=== PATIENT | female | born 1985 | race Caucasian/White ===

== ENCOUNTER → 2017-06-18 08:02 | Outpatient (CLI) | payer MEDICAID, SELFPAY | PROVIDERS: Family Provider Family Medicine; PCP Family Medicine; Visit Provider Internal Medicine Endocrinology, Diabetes & Metabolism | DX: E66.9 Obesity, unspecified (principal); Z68.30 Body mass index [BMI] 30.0-30.9, adult | CPT/HCPCS: 36415; 82533 ==

== ENCOUNTER → 2017-07-02 13:37 | Outpatient (CLI) | payer MEDICAID, SELFPAY ==
--- NOTE | 2017-07-02 13:41 | US_ITS ---
STUDY: ULTRASOUND OF THE FEMALE PELVIS - COMPLETE REASON FOR EXAM: Female, 31 years old. Ovarian cyst LMP: 06/22/2017 TECHNIQUE: Transabdominal and Transvaginal TECHNICAL QUALITY: Adequate. COMPARISON: 11/28/2016 ultrasound report FINDINGS: The uterus is anteverted and is in a midline position. The uterus measures 10.5 x 5.3 x 3.6 cm. Normal uterine cervix. The endometrium measures 7 mm in thickness, and is hyperechoic. There is a small hyperechoic region within the endometrium measuring 4 x 3 mm. This could represent a tiny endometrial polyp. There is no demonstrated myometrial mass. I.U.D. - The patient does not have an I.U.D. The right ovary is visualized. The right ovary measures 4.6 x 4 x 3.1 cm. There is a 3.2 x 3.1 x 2.6 cm right ovarian cyst. There is no visualized right adnexal mass or complex lesion. There is normal arterial and normal venous vascularity. The left ovary has been removed. There is no fluid in the cul-de-sac. The bladder is minimally distended at the time of scanning. Polycystic ovary disease: No. US/Pelvic (Non ) IMPRESSION: Right ovarian cyst. Small hyperechoic endometrial lesion may represent an endometrial polyp. The left ovary has been removed. Electronically Signed: Zbigniew Crocker DO at 8:32 EDT Tel , Service support ,
[2017-07-02 14:16] LABS: Hemoglobin 12.8 g/dl (12.0-15.0); Mean Corp Hgb Conc 32.8 g/gl (32-36); Mean Corpuscular Volume 85.3 fL (81-99); Mean Platelet Vol. 9.1 fl (6.2-12.0); Platelet Count 324 K/mm3 (150-450); RBC Distribution Width CV 13.2 % (11.6-14.6); RBC Distribution Width SD 40.6 fl (35.1-43.9); Red Blood Count 4.57 M/mm3 (4.2-5.4); White Blood Count 8.7 K/mm3 (4.4-11.0)
[2017-07-02 14:23] LABS: Scan Indicated on CBC? Y/N NO
[2017-07-02 14:33] LABS: Erythrocyte Sedimentation Rate 13 mm/hr (0-20)
[2017-07-02 17:18] LABS: ALB/GLOB Ratio 0.8 RATIO (0.9-2.4); AST(SGOT) 18 U/L (15-37); Alanine Aminotransfer ALT/SGPT 21 U/L (13-56); Albumin, Serum 3.3 g/dL (3.2-5.0); Alkaline Phosphatase 92 U/L (45-117); Anion Gap 10 (5-15); BUN 9 mg/dL (7-18); BUN/Creat Ratio 11.6 RATIO (10-20); Calcium,Total 8.4 mg/dL (8.5-10.1); Chloride 107 mmol/L (98-107); Creatinine, Serum 0.77 mg/dL (0.55-1.02); EST Glomerular Filtration Rate 91 mL/min (>60); Est Glom Filt Rate - Afr Amer 110 mL/min (>60); Estradiol 82.6 pg/mL; Follicle Stimulating Hormone 6.6 mIU/mL; Globulin 3.9 g/dL (2.2-4.2); Glucose 107 mg/dL (74-106); Potassium 4.2 mmol/L (3.5-5.1); Prolactin 28.6 ng/mL; Protein, Total 7.2 g/dL (6.4-8.2); Sodium Level 142 mmol/L (136-145)
[2017-07-04 16:07] LABS: DHEA Sulfate 169.7 ug/dL (84.8-378.0)
[2017-07-05 08:32] LABS: Testosterone Free 2.2 pg/mL (0.0-4.2)
== END ==
PROVIDERS: Family Provider Family Medicine; PCP Family Medicine; Visit Provider Obstetrics & Gynecology
DX: E28.2 Polycystic ovarian syndrome (principal); R19.7 Diarrhea, unspecified; R63.5 Abnormal weight gain
CPT/HCPCS: 36415; 76856; 80053; 82627; 82670; 83001; 84146; 84402; 84403; 85027; 85652; 86140; 93976; 82626

== ENCOUNTER 2017-08-27 18:03 | Emergency (ER) | payer MEDICAID, SELFPAY ==
[2017-08-27 18:04] VITALS: BP 117/71; PULSE 82; RESP 16; TEMP 37.1; O2SAT 100; BMI 32.1
--- NOTE | 2017-08-27 18:25 | CT_ITS ---
STUDY: CT RIGHT HIP/PELVIS REASON FOR EXAM: Female, 22 years old. Lateral left hip pain and swelling radiating into leg. RADIATION DOSAGE (If Supplied By Facility): CTDIvol = ( ) mGy, DLP = ( ) mGycm TECHNIQUE: Transaxial imaging of the left hips was performed without oral contrast, and without intravenous administration of contrast material. COMPARISON: Pelvic ultrasound July 02, 2017. FINDINGS: Normal visualized left femur. Normal left acetabulum. Normal hip joint without articular joint space narrowing. Normal bilateral superior and inferior pubic rami. Normal pubic symphysis. Normal bilateral ischia. There are cortical enthesophytes at the lateral right iliac wing. There are early degenerative changes of the bilateral sacroiliac joints, and mild joint space narrowing and periarticular ilial sclerosis. There is no demonstrated fracture or osseous destructive lesion of the visualized osseous pelvis. Normal urinary bladder. Normal visualized small intestine. Normal visualized colon. There is no pelvic fluid. There are multiple low-density areas in the right ovary, consistent with follicular cysts. One of the largest is approximately 2.2 x 1.75 x 1.85 cm. The left ovary is not well seen. Normal visualized uterus. Normal visualized pelvic and femoral arteries. There are a few benign, partially fatty replaced lymph nodes in the left inguinal tissues. CT/Extremity Lower WITH Contrast IMPRESSION: 1. Normal visualized osseous pelvis and left hip/femur. 2. Dominant 2.2 cm follicular cyst in the right ovary. The uterus is unremarkable. The left ovary is not visualized. 3. No demonstrated left pelvic or groin mass. Electronically Signed: Chivo Santos MD at 19:21 EDT , Service support ,
[2017-08-27 18:40] LABS: Absolute Lymphocyte Count 3.83 X10^3/ul (0.83-4.51); Absolute Neutrophil Count 4.3 X10^3/uL (2.0-7.7); Basophil# 0.02 X10^3/uL; Basophil% 0.2 % (0-1); Eosinophil# 0.18 X10^3/uL; Hemoglobin 11.7 g/dl (12.0-15.0); Lymphocyte # 3.83 X10^3/ul (4.0); Lymphocyte % 42.9 % (19-41); Mean Corp Hgb Conc 32.5 g/gl (32-36); Mean Corpuscular Hgb 27.4 pg (27.0-32.0); Mean Corpuscular Volume 84.3 fL (81-99); Mean Platelet Vol. 8.6 fl (6.2-12.0); Monocyte# 0.58 X10^3/uL; Monocyte% 6.5 % (0-10); Neutrophil % 48.3 % (47-70); Platelet Count 274 K/mm3 (150-450); RBC Distribution Width CV 13.1 % (11.6-14.6); Red Blood Count 4.27 M/mm3 (4.2-5.4); White Blood Count 8.9 K/mm3 (4.4-11.0)
[2017-08-27 18:41] LABS: POSITIVE COUNT NO; POSITIVE DIFFERENTIAL NO; POSITIVE MORPHOLOGY NO
[2017-08-27 18:52] LABS: Anion Gap 7 (5-15); BUN 8 mg/dL (7-18); BUN/Creat Ratio 11.2 RATIO (10-20); Calcium,Total 8.8 mg/dL (8.5-10.1); Chloride 107 mmol/L (98-107); Creatinine, Serum 0.71 mg/dL (0.55-1.02); EST Glomerular Filtration Rate 100 mL/min (>60); Est Glom Filt Rate - Afr Amer 121 mL/min (>60); Estimated Creatinine Clearance 92.36 ml/min; Glucose 80 mg/dL (74-106); Potassium 3.5 mmol/L (3.5-5.1); Sodium Level 141 mmol/L (136-145)
[2017-08-27 19:00] LABS: Pregnancy, Serum, hCG Quali. NEGATIVE Negative (0-9 Nonpreg)
--- NOTE | 2017-08-27 19:08 | ED.DCSUM_ITS ---
- ER Visit Summary Date of Service: 08/27/17 Chief Complaint: Left hip pain History of Present Illness: The patient is a 32 F with left hip pain for the last 3-4 weeks. Patient states she developed an area of swelling on the lateral portion of her left hip. It initially started out as the size of a $ 0.50 piece. It has grown in size in the past 3 weeks and become more painful. There are no overlying skin changes. She saw her registered nurse ambulatory who had ordered an MRI. She had that performed earlier this week but got a phone call today that they scanned over the thigh but did not cover the area of interest. Patient was seen by her PCP yesterday and started on anti-inflammatories for possible bursitis. She is noted very minimal improvement with this. She was told that is still painful to go to the emergency room. Patient denies any injury to the area. She has had no fever or chills. Past history significant for reflux disease, PCOS, ankylosing spondylitis, and asthma. Physical Examination: Vital signs are unremarkable. Patient's lying supine. She is in no acute distress. Heart is regular rate and rhythm. Lung sounds are clear. Abdomen is soft nontender. Lower external examination was a 9 x 7 cm area of edema and tenderness over the lateral portion of the left hip. There is no overlying skin change. She is full range of motion of the extremity without difficulty. She has strong distal pulses. Test Results: CBC is significant only for mild anemia with a hemoglobin 11.7. Chemistry studies normal. test negative. CT of the left lower extremity was obtained with IV contrast. They report normal osseous structures. I see no evidence of abscess. Emergency Department Course and Treatment: Test results were discussed with the patient. I believe this is likely bursitis. Patient will continue her anti- inflammatory and we will add a prednisone taper. Treatment Plan: [] Disposition: Discharge Impression: Left hip swelling, suspect bursitis This note was generated with [employer] dictation software. It may contain incorrect words, spelling, and punctuation that were not noted in review of the chart prior to signing ED Disposition - Plan for ED Patient: Chief Complaint: Lower Extremity Injury Referrals: Anant Curran DO [Primary Care Provider] -
[2017-08-27 19:42] VITALS: BP 106/63; PULSE 76; RESP 16; O2SAT 100
--- NOTE | 2017-08-27 20:03 | ED.DEP ---
ED Disposition - Plan for ED Patient: Disposition: Home or Assisted Living Chief Complaint: Lower Extremity Injury Instructions: ED Bursitis Prescriptions: Prednisone 10 mg PO DAILY #63 tablet Referrals: Anant Curran DO [Primary Care Provider] - 1 Week if not improving
[2017-08-27] MEDS: predniSONE 20 MG Tablet 60 MG PO (20:11)
[2017-08-27 20:16] VITALS: BP 106/63; PULSE 71; RESP 14; O2SAT 99
== END 2017-08-27 20:17 | disposition home or self-care (01) ==
PROVIDERS: Emergency Provider Emergency Medicine; Family Provider Family Medicine; PCP Family Medicine
DX: M25.452 Effusion, left hip (principal); M45.9 Ankylosing spondylitis of unspecified sites in spine; K21.9 Gastro-esophageal reflux disease without esophagitis; E28.2 Polycystic ovarian syndrome; Z79.899 Other long term (current) drug therapy
CPT/HCPCS: 73701; 80048; 84703; 85025; 99284; Q9967; A4216

== ENCOUNTER → 2017-09-07 11:13 | Outpatient (CLI) | payer MEDICAID, SELFPAY ==
[2017-09-07 12:30] LABS: CRP < 2.90 mg/L (0.0-3.0); Erythrocyte Sedimentation Rate 12 mm/hr (0-20)
[2017-09-07 12:32] LABS: Absolute Lymphocyte Count 9.18 X10^3/ul (0.83-4.51); Absolute Neutrophil Count 8.1 X10^3/uL (2.0-7.7); Basophil# 0.02 X10^3/uL; Basophil% 0.1 % (0-1); Eosinophil# 0.11 X10^3/uL; Eosinophils% 0.6 % (0-5); Hematocrit 42.2 % (37-47); Hemoglobin 13.5 g/dl (12.0-15.0); Lymphocyte # 9.18 X10^3/ul (4.0); Lymphocyte % 49.4 % (19-41); Mean Corpuscular Hgb 27.4 pg (27.0-32.0); Mean Corpuscular Volume 85.8 fL (81-99); Mean Platelet Vol. 8.8 fl (6.2-12.0); Monocyte% 5.9 % (0-10); Neutrophil # 8.12 X10^3/uL (2.7-7.7); Neutrophil % 43.6 % (47-70); Platelet Count 367 K/mm3 (150-450); RBC Distribution Width CV 13.9 % (11.6-14.6); RBC Distribution Width SD 43.4 fl (35.1-43.9); Red Blood Count 4.92 M/mm3 (4.2-5.4); White Blood Count 18.6 K/mm3 (4.4-11.0)
[2017-09-07 12:35] LABS: Differential Indicated SCAN CRITERIA MET; POSITIVE COUNT NO; POSITIVE DIFFERENTIAL YES; POSITIVE MORPHOLOGY NO
[2017-09-07 13:16] LABS: Reactive Lymphocyte 1+
[2017-09-07 13:17] LABS: Differential Comment SCANNED
== END ==
PROVIDERS: Family Provider Family Medicine; PCP Family Medicine; Visit Provider Family Medicine
DX: M70.62 Trochanteric bursitis, left hip (principal)
CPT/HCPCS: 36415; 85025; 85652; 86140

== ENCOUNTER → 2017-09-28 09:55 | Outpatient (CLI) | payer MEDICAID, SELFPAY ==
--- NOTE | 2017-09-28 09:57 | RAD_ITS ---
STUDY: X-RAY - PELVIS AND LEFT HIP REASON FOR EXAM: Female, 32 years old. Atraumatic hip pain. TECHNIQUE: Radiological exam, hip, unilateral, with pelvis when performed; 2 or 3 views. COMPARISON: None. FINDINGS: There is a non-specific bowel gas pattern. Normal visualized soft tissue structures. Normal bilateral iliac wings, sacroiliac joints and visualized sacrum. Normal bilateral superior and inferior pubic rami. Normal pubic symphysis. Normal bilateral ischial tuberosities. Normal visualized femoral head. Normal acetabulum. Normal hip joint. RAD/Hip 2-3 Views with Pelvis IMPRESSION: No significant abnormality identified. Electronically Signed: Danny Ha MD at 11:28 EDT , Service support ,
--- NOTE | 2017-09-28 09:57 | RAD_ITS ---
STUDY: X-RAY - LUMBOSACRAL SPINE REASON FOR EXAM: Female, 32 years old. Atraumatic back pain. TECHNIQUE: 7 view(s) of the lumbosacral spine including lateral flexion and extension views were obtained. COMPARISON: None FINDINGS: Normal lumbar lordosis. There is no substantial scoliosis. There is normal alignment of the vertebrae. There is limited flexion and extension with no abnormal motion. Normal vertebral bodies and endplates. Normal disc space heights. Normal bilateral sacral ala, sacroiliac joints, and visualized sacrum. Normal visualized soft tissue structures. RAD/L/S Spine Comp/w Bending Views IMPRESSION: Limited flexion and extension with no abnormal motion. No other significant abnormality. Electronically Signed: Danny Ha MD at 11:29 EDT , Service support ,
== END ==
PROVIDERS: Family Provider Family Medicine; PCP Family Medicine; Visit Provider Orthopaedic Surgery
DX: M54.5 Low back pain (principal); M25.552 Pain in left hip
CPT/HCPCS: 72114; 73502

== ENCOUNTER → 2017-12-20 12:35 | Outpatient (CLI) | payer MEDICAID, SELFPAY ==
--- NOTE | 2017-12-20 12:38 | US_ITS ---
STUDY: ULTRASOUND OF THE FEMALE PELVIS - COMPLETE REASON FOR EXAM: Female, 32 years old. Ovarian cyst LMP: December 01, 2017 TECHNIQUE: Transvaginal TECHNICAL QUALITY: Adequate. COMPARISON: None. FINDINGS: The uterus is anteverted and is in a midline position. The uterus measures 11.3 x 5.0 x 4.1 cm. Normal uterine cervix. The endometrium measures 1.6 mm in thickness, and is hyperechoic. There is no demonstrated endometrial mass. There is no demonstrated myometrial mass. The patient does not have an I.U.D. The right ovary is visualized. The right ovary measures 3.8 x 2.9 x 2.4 cm. There is no right ovarian cyst or ovarian mass. There is no visualized right adnexal mass or complex lesion. There is normal arterial and normal venous vascularity. The left ovary is not visualized. . There is no fluid in the cul-de-sac. US/Pelvic (Non ) IMPRESSION: Status post left oophorectomy. Electronically Signed: Oleg Olvera DO at 23:52 EDT Tel [phone], Service support ,
== END ==
PROVIDERS: Family Provider Family Medicine; PCP Family Medicine; Visit Provider Nurse Practitioner Women's Health
DX: R10.2 Pelvic and perineal pain (principal); E28.2 Polycystic ovarian syndrome; N80.9 Endometriosis, unspecified
CPT/HCPCS: 76856; 93976

== ENCOUNTER → 2018-01-04 16:32 | Outpatient (CLI) | payer MEDICAID, SELFPAY ==
--- NOTE | 2018-01-04 16:35 | RAD_ITS ---
STUDY: X-RAY - LEFT HAND, ATTENTION INDEX FINGER REASON FOR EXAM: Female, 32 years old. Pain TECHNIQUE: 3 view(s) of the finger were obtained. COMPARISON: None. FINDINGS: Normal metacarpal head. Normal metacarpophalangeal joint. Normal proximal phalanx. Normal middle phalanx. Normal distal phalanx. Normal proximal interphalangeal joint. Normal distal interphalangeal joint. RAD/Finger(s) Min 2 Views IMPRESSION: Normal x-ray examination of the finger. No fracture. No bone or joint disease Electronically Signed: Jose Antonio Colin MD at 6:18 EDT Tel , Service support ,
--- NOTE | 2018-01-04 16:35 | RAD_ITS ---
STUDY: X-RAY - RIGHT KNEE REASON FOR EXAM: Female, 32 years old. Injury. Pain TECHNIQUE: 4 view(s) of the knee. COMPARISON: None. FINDINGS: Normal visualized distal femur. Normal visualized proximal tibia and fibula. Normal proximal tibiofibular articulation. Normal medial femorotibial compartment. Normal lateral femorotibial compartment. Normal patellofemoral articulation. The soft tissue structures are unremarkable. RAD/Knee 4 or More Views IMPRESSION: Normal x-ray examination of the knee. No acute fractures. No knee joint effusion. Electronically Signed: Jose Antonio Colin MD at 4:46 EDT Tel , Service support ,
== END ==
PROVIDERS: Family Provider Family Medicine; PCP Family Medicine; Referring Provider Family Medicine; Visit Provider Family Medicine
DX: M25.561 Pain in right knee (principal); M79.645 Pain in left finger(s)
CPT/HCPCS: 73140; 73564

== ENCOUNTER 2018-01-12 18:50 | Observation (INO) | payer MEDICAID, SELFPAY ==
[2018-01-12] VITALS (9 sets, daily range): BP systolic 117–138; BP diastolic 60–97; PULSE 48–78; RESP 15–17; TEMP 36.8–37.2; O2SAT 97–100; BMI 33.3
--- NOTE | 2018-01-12 19:16 | EKG12_ITS ---
Test Reason : PALPITATIONS Blood Pressure : / mmHG Vent. Rate : 065 BPM Atrial Rate : 065 BPM P-R Int : 140 ms QRS Dur : 090 ms QT Int : 424 ms P-R-T Axes : 070 066 065 degrees QTc Int : 440 ms Sinus rhythm with marked sinus arrhythmia Otherwise normal ECG Confirmed by BÁRBARA WHARTON, ADY ([id number]), index editor SHOLA TONEY ([id number] on 01/17/2018 12:34:07 PM Referred By: Confirmed By:ADY GRANGER MD
--- NOTE | 2018-01-12 19:19 | ED.DCSUM_ITS ---
- ER Visit Summary Date of Service: 01/12/18 Chief Complaint: Dizziness History of Present Illness: The patient is a 32 F presenting with dizziness. She states that this has been going on for intermittently for several years. She is currently wearing a 30-day monitor per Dr. Pearson. She has had intermitt ent palpitations. She denies chest pain. Complains of mild shortness of breath. Denies possibility of . Symptoms are worse with standing. She states she just finished her period and feels that her symptoms are usually worse around her period. Physical Examination: Vitals are stable. Patient is afebrile. Alert no acute distress. HEENT exam is unremarkable. Neck is supple. Lungs are clear and equal bilaterally. Heart is regular rate and rhythm. Abdomen is soft nontender nondistended. Extremities are unremarkable. Skin is warm and dry. No focal neurologic deficit. Remainder of exam is unremarkable. Emergency Department Course and Treatment: EKG is sinus arrhythmia rate of 65. She was given IV fluids. Chest x-ray shows no acute process. CBC shows hemoglobin 11.9. Chemistry unremarkable. Troponin is negative. D-dimer negative. HCG negative. Orthostatics negative. Patient had one episode where her heart rate went to 49. She had dizziness associated with this. She complains of a mild spinning sensation and was given meclizine with no improvement. She is advised to discontinue her atenolol. Discussed with Dr Pearson. On further discussion with the patient her heart rate as she was talking went into the low 40s and she nearly passed out. She is uncomfortable with discharge home. Discussed with the hospitalist for observation. Disposition: Observation Impression: Bradycardia, near syncope This note was generated with [employer] dictation software. It may contain incorrect words, spelling, and punctuation that were not noted in review of the chart prior to signing ED Disposition - Plan for ED Patient: Chief Complaint: Palpitations Referrals: Anant Curran DO [Primary Care Provider] -
--- NOTE | 2018-01-12 19:20 | RAD_ITS ---
STUDY: X-RAY CHEST REASON FOR EXAM: Female, 32 years old. Dizzy. TECHNIQUE: Single frontal view of the chest. COMPARISON: November 30, 2016 FINDINGS: The lungs are clear and expanded. There is no demonstrated pleural abnormality. Normal size heart. Normal mediastinum and jim. Normal visualized pulmonary arteries. Normal visualized aortic arch and descending thoracic aorta. Normal visualized thoracic spine. Normal visualized ribs, clavicles, and shoulders. There is no demonstrated abnormality of the visualized soft tissue structures of the upper abdomen. RAD/Chest 1 View (Portable) IMPRESSION: No acute cardiopulmonary process. Electronically Signed: Katya Chawla MD at 19:59 EDT Tel , Service support ,
[2018-01-12 19:29] LABS: Absolute Lymphocyte Count 3.58 X10^3/ul (0.83-4.51); Absolute Neutrophil Count 5.5 X10^3/uL (2.0-7.7); Basophil# 0.02 X10^3/uL; Basophil% 0.2 % (0-1); Hematocrit 37.6 % (37-47); Hemoglobin 11.9 g/dl (12.0-15.0); Lymphocyte # 3.58 X10^3/ul (4.0); Lymphocyte % 36.3 % (19-41); Mean Corp Hgb Conc 31.6 g/gl (32-36); Mean Corpuscular Hgb 27.5 pg (27.0-32.0); Mean Corpuscular Volume 86.8 fL (81-99); Mean Platelet Vol. 8.9 fl (6.2-12.0); Monocyte# 0.53 X10^3/uL; Monocyte% 5.4 % (0-10); Neutrophil % 55.9 % (47-70); Platelet Count 299 K/mm3 (150-450); RBC Distribution Width CV 13.2 % (11.6-14.6); RBC Distribution Width SD 40.9 fl (35.1-43.9); Red Blood Count 4.33 M/mm3 (4.2-5.4); White Blood Count 9.9 K/mm3 (4.4-11.0)
[2018-01-12 19:30] LABS: POSITIVE COUNT NO; POSITIVE DIFFERENTIAL NO; POSITIVE MORPHOLOGY NO
[2018-01-12 19:41] LABS: D-Dimer Quantitative (DVT/PE) < 0.27 FEU/ug/m (0.27-0.49)
[2018-01-12] MEDS: 0.9% Normal Saline 1,000 ML 1000 ML IV (20:00)
[2018-01-12 20:05] LABS: Anion Gap 7 (5-15); BUN 8 mg/dL (7-18); BUN/Creat Ratio 9.8 RATIO (10-20); Calcium,Total 8.9 mg/dL (8.5-10.1); Chloride 108 mmol/L (98-107); Creatinine, Serum 0.82 mg/dL (0.55-1.02); EST Glomerular Filtration Rate 85 mL/min (>60); Est Glom Filt Rate - Afr Amer 103 mL/min (>60); Estimated Creatinine Clearance 76.46 ml/min; Glucose 84 mg/dL (74-106); Potassium 3.8 mmol/L (3.5-5.1); Sodium Level 141 mmol/L (136-145); Thyroid Stim Hormone (TSH) 1.03 uIU/mL (0.358-3.74)
[2018-01-12 20:12] LABS: Pregnancy, Serum, hCG Quali. NEGATIVE Negative (0-9 Nonpreg)
[2018-01-12] MEDS: Meclizine HCl 25 MG Tablet PO (20:41)
--- NOTE | 2018-01-12 21:53 | HP.PCM_ITS ---
Problem List (1) Symptomatic bradycardia Status: Acute (2) Abdominal pain Status: Acute Qualifiers: Abdominal location: lower abdomen, unspecified Qualified Code(s): R10.30 - Lower abdominal pain, unspecified (3) Diarrhea Status: Chronic (4) Hematochezia Status: Chronic (5) PCOS (polycystic ovarian syndrome) Status: Chronic (6) Ankylosing spondylitis Status: Chronic (7) Exercise-induced asthma Status: Chronic (8) Mitral regurgitation Status: Chronic (9) Tachycardia Status: Chronic History of Present Illness Date of Admission: 01/12/18 Chief Complaint: palpitations The patient is a 32 year old F with a significant history of Crohn's disease; kidney stone; PCOS; endometritis; chronic hypokalemia who presents with 4 days history of worsening fluttering of her chest. Associated with her symptoms is light headedness and near syncope. Because patient has been having fluttering for a long time she saw Dr. Baptiste. 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 However in the last 4 days her symptoms has been worsening so she came to the emergency department. At the emergency department on the day of presentation; ED doctor talked to Dr. Baptiste. The initial plan from Dr. Baptiste was for atenolol to be stopped and patient to be followed up outpatient. However because reportedly patient passed out at emergency department patient was admitted and ED doctor notified Dr. Baptiste. Patient is on atenolol outpatient because of tachycardia. EKG at the emergency department showed sinus arrhythmia. Past Medical History Past Medical History (Chronic Problems): Chronic Problems (Last Reviewed 01/12/18 @ 22:25 by Humberto Aguilar MD) Endometriosis (Chronic) refer to digital sales manager onc for diagnostic surgical evaluation possible hysterectomy, history of severe scar tissue seen on previous laparoscopy Ovarian cyst (Chronic) Diarrhea (Chronic) Hematochezia (Chronic) PCOS (polycystic ovarian syndrome) (Chronic) Ankylosing spondylitis (Chronic) Exercise-induced asthma (Chronic) Mitral regurgitation (Chronic) Tachycardia (Chronic) Medical History: Medical History (Last Reviewed 01/12/18 @ 22:25 by Humberto Aguilar MD) PCOS (polycystic ovarian syndrome) (Chronic) E28.2 Ankylosing spondylitis (Chronic) M45.9 Exercise-induced asthma (Chronic) J45.990 Mitral regurgitation (Chronic) I34.0 Endometriosis N80.9 Allergies eucalyptus Allergy (Mild, Verified 01/12/18 18:51) unknown latex Allergy (Mild, Verified 01/12/18 18:51) Unknown cephalexin monohydrate [From Keflex] Allergy (Verified 01/12/18 18:51) Anaphylaxis doxycycline Adverse Reaction (Verified 01/12/18 18:51) Diarrhea Home Medications: Ambulatory Orders Medication Instructions Recorded Atenolol [Tenormin (beta David)] 25 mg PO DAILY 01/11/16 Omeprazole [Prilosec] 20 mg PO DAILY 11/30/16 cetirizine 10 mg tablet 10 mg PO QDAY 06/28/17 multivitamin tablet 1 tab PO DAILY 12/13/17 Potassium Chloride [Klor-Con] 40 meq PO DAILY 01/12/18 Surgical History: Surgical History (Last Reviewed 01/13/18 @ 00:43 by Humberto Aguilar MD) History of Z98.891 History of hernia repair Z98.890, Z87.19 Hx of removal of ovary Surgical History: - - History of left fallopian tube removal. Lives: With Family - Lives with her son. Smoking Status: Never smoker Alcohol: None - *Family History Maternal Family History: Family History (Last Reviewed 01/12/18 @ 22:26 by Humberto Aguilar MD) Mother Heart disease Father Heart disease Diabetes Review of Systems Constitutional: Reports: Fatigue. Denies: Chills, Fever, Weight Change Eyes: Denies: Blurred vision, Pain HEENT: Reports: Post Nasal Drip. Denies: Head Aches, Sinus Congestion, Sinus Drainage Cardiovascular: Reports: Light Headedness, Syncope. Denies: Chest Pain, Palpitations Respiratory: Denies: Cough, Shortness of breath at rest, Sputum production Gastrointestinal: Denies: Abdominal Pain, Nausea, Vomiting Genitourinary: Denies: Dysuria Gynecological: Denies: Breast symptoms Musculoskeletal: Denies: Joint Pain, Joint Tenderness Skin: Denies: Rash, Wounds Neurological: Denies: Numbness, Tingling, Focal weakness Psychiatric: Denies: Anxiety, Depression, Homicidal Ideations, Suicidal Ideations Hematologic/ Lymphatic: Denies: Easy Bruising, Easy Bleeding VTE Information - Inpt Only VTE Present on Admission: No VTE Mechan Device Prophylaxis: None VTE Pharm Prophylaxis ordered?: Yes Patient Problems: Active and Suspected Problems (Last Reviewed 01/12/18 @ 22:25 by Humberto Aguilar MD) Symptomatic bradycardia (Acute) - Physical Exam General: Alert, Oriented x3, Cooperative HEENT: Atraumatic, PERRLA, EOMI, Normocephalic Neck: Supple, No JVD, Negative Carotid Bruits Lungs: Clear to auscultation, Normal air movement Cardiovascular: No murmurs, Bradycardic, Irregular Rate, No rub noted Abdomen: Bowel Sounds Present, Soft, Non Tender Extremities: No edema, Capillary Refill Less than 3 Seconds Skin: No rashes, No breakdown Musculoskeletal: No Tenderness to Palpation of Joints or Extremities Neurological: Cranial nerves II-XII grossly intact Psych/Mental Status: Normal Affect, Appropriate Vital Signs Temp Pulse Resp BP Pulse Ox 98.9 F 57 L 15 121/91 H 97 01/12/18 18:52 01/12/18 21:36 01/12/18 21:36 01/12/18 21:36 01/12/18 21:36 Oxygen Delivery Method Room Air Weight: 82.8 kg Body Mass Index (BMI) 33.3 Finger Stick Blood Glucose 129 Laboratory Tests Past 24 Hrs 01/12/18 01/12/18 01/12/18 19:17 19:17 19:17 WBC 9.9 RBC 4.33 Hgb 11.9 L Hct 37.6 MCV 86.8 MCH 27.5 MCHC 31.6 L RDW 13.2 RDW Differential 40.9 Plt Count 299 MPV 8.9 Immature Gran % (Auto) 0.200 Neut % (Auto) 55.9 Lymph % (Auto) 36.3 [place] % (Auto) 5.4 Eos % (Auto) 2.0 Baso % (Auto) 0.2 Absolute Neuts (auto) 5.5 Absolute Lymphs (auto) 3.58 Total Counted Not Reportable D-Dimer Quant (PE/DVT) < 0.27 L Sodium Cancelled Potassium Cancelled Chloride Cancelled Carbon Dioxide Cancelled Anion Gap Cancelled BUN Cancelled Creatinine Cancelled Estim Creat Clear Calc Cancelled Est GFR (MDRD) Af Amer Cancelled Est GFR (MDRD) Non-Af Cancelled BUN/Creatinine Ratio Cancelled Glucose Cancelled Calcium Cancelled Troponin I Cancelled TSH Cancelled Serum , Qual 01/12/18 01/12/18 01/12/18 19:17 19:35 19:35 WBC RBC Hgb Hct MCV MCH MCHC RDW RDW Differential Plt Count MPV Immature Gran % (Auto) Neut % (Auto) Lymph % (Auto) [place] % (Auto) Eos % (Auto) Baso % (Auto) Absolute Neuts (auto) Absolute Lymphs (auto) Total Counted D-Dimer Quant (PE/DVT) Sodium 141 Potassium 3.8 Chloride 108 H Carbon Dioxide 26.0 Anion Gap 7 BUN 8 Creatinine 0.82 Estim Creat Clear Calc 76.46 Est GFR (MDRD) Af Amer 103 Est GFR (MDRD) Non-Af 85 BUN/Creatinine Ratio 9.8 L Glucose 84 Calcium 8.9 Troponin I < 0.015 TSH 1.03 Serum , Qual Cancelled NEGATIVE Assessment/Plan All Active Problems (Last Reviewed 01/12/18 @ 22:25 by Humberto Aguilar MD) Symptomatic bradycardia (Acute) Abdominal pain (Acute) Prolapse of intestine (Acute) Diverticulosis (Acute) Hemorrhoids (Acute) Anal fissure (Acute) The patient is a 32 year old F with a significant history of Crohn's disease; kidney stone; PCOS; endometritis; chronic hypokalemia who presents with 4 days history of worsening fluttering of her chest and found to have symptomatic bradycardia. Symptomatic bradycardia Independent review of EKG showed sinus arrhythmia. Lowest heart rate at emergency department was 48. Atenolol held Admitted to PCU on telemetry. Event monitor in place. Patient will be admitted overnight and if stable can be discharged home to follow up with Dr. Baptiste. Consider cardiology consult if patient continues to have symptomatic bradycardia. Chronic hypokalemia Admission potassium was normal at 3.8. We will continue home potassium supplement Trend BMP. Anemia Mild Patient reports heavy bleeding and is on hormone replacement therapy. No further workup at this time. Allergies Patient reports that she takes Zyrtec and Flonase at home; will continue. GERD Prilosec continued. DVT prophylaxis Patient is obese and on hormone replacement therapy. Lovenox subcutaneous. Miscellaneous: Patient take progesterone every first time of the month. Code Visit OBSV E&M: [id number] Initial observation care L3
[2018-01-13] VITALS (11 sets, daily range): BP systolic 102–110; BP diastolic 63–69; PULSE 62–90; RESP 16–18; TEMP 36.8–36.9; O2SAT 95–99
[2018-01-13 06:07] LABS: Anion Gap 6 (5-15); BUN 7 mg/dL (7-18); Calcium,Total 8.3 mg/dL (8.5-10.1); Chloride 109 mmol/L (98-107); Creatinine, Serum 0.78 mg/dL (0.55-1.02); EST Glomerular Filtration Rate 90 mL/min (>60); Est Glom Filt Rate - Afr Amer 109 mL/min (>60); Estimated Creatinine Clearance 80.38 ml/min; Glucose 103 mg/dL (74-106); Potassium 3.7 mmol/L (3.5-5.1); Sodium Level 141 mmol/L (136-145)
[2018-01-13] MEDS: Multivitamins,Therapeutic Tablet 1 TABLET PO (09:04)
[2018-01-13] MEDS: Pantoprazole Sodium 20 MG Tablet PO (09:05)
[2018-01-13] MEDS: Loratadine 10 MG Tablet PO (09:05)
[2018-01-13] MEDS: Fluticasone 0.05% 1 SPRAY NASAL.SRY NASAL ×2 (09:11→21:27)
[2018-01-13] MEDS: Enoxaparin 40 MG/0.4 ML Syringe SC (09:12)
--- NOTE | 2018-01-13 10:08 | ECHOCS_ITS ---
Reason For Study: CHEST PAIN Procedure This was a 2D Doppler, Color Flow transthoracic echocardiogram. Exam performed portable in patient room. Left Ventricle Normal LV size. Left ventricular systolic function is normal. The estimated ejection fraction is 60 %. No evidence for diastolic dysfunction. No regional wall motion abnormalities noted. Right Ventricle Normal size and thickness. Normal systolic function. Atria Normal left atrium. Normal right atrium. Bubble contrast study negative for right to left interatrial shunt. Mitral Valve Normal mitral valve. Tricuspid Valve Normal tricuspid valve. Aortic Valve Normal aortic valve. Trisinus/trileaflet aortic valve. Pulmonic Valve Normal pulmonic valve. Great Vessels Normal aortic root. The pulmonary artery is normal size. Normal inferior vena cava. Pericardium/Pleural No pericardial effusion. Medication Performed a rapid injection of agitated mix of 9 cc saline and 1cc air to assess for atrial septal defect. MMode/2D Measurements & Calculations LVIDd: 4.2 cm IVSd: 0.84 cm Ao root diam: 2.4 cm LVIDs: 2.6 cm LVPWd: 0.93 cm RVDd: 3.0 cm FS: 36.4 % LAV(MOD-bp): 28.7 ml LAV(MOD-bp) Indexed: 15.5 ml/m2 LA A4 area: 12.3 cm2 RA A4 area: 10.7 cm2 LAV(MOD-sp2): 24.8 ml LAV(MOD-sp4): 29.1 ml Time Measurements MV dec time: 0.18 sec Doppler Measurements & Calculations MV E max jitendra: 83.6 cm/sec Lat Peak E' Jitendra: 11.2 cm/sec Med Peak E' Jitendra: 9.3 cm/sec MV A max jitendra: 63.1 cm/sec E/E' lat: 7.5 E/E' med: 9.0 MV E/A: 1.3 Ao V2 max: 131.0 cm/sec LV V1 max: 104.1 cm/sec PA V2 max: 100.4 cm/sec Ao max P.9 mmHg LV V1 max P.3 mmHg Interpretation Summary Normal LV size. Left ventricular systolic function is normal. The estimated ejection fraction is 60 %. No evidence for diastolic dysfunction. Bubble contrast study negative for right to left interatrial shunt. Ordering Physician: Duy Treadwell Referring Physician: Anant Curran Performed By: Catherine Arellano, OPAL, RVT
--- NOTE | 2018-01-13 10:31 | PN_ITS ---
<Duy Treadwell - Last Filed: 01/13/18 10:31> Patient Problems: Active and Suspected Problems (Last Reviewed 01/12/18 @ 22:25 by Humberto Aguilar MD) Symptomatic bradycardia (Acute) Subjective: Palpitations continue but less frequently. Lightheadedness resolved at about 3am. She had an episode of left sided chest pain described as heaviness last night, radiating straight through into her back. She denies SOB currently, tho notes she has had frequent SOB at night when she tries to lay flat - states she can no longer lay or sleep flat. She does develop BL pedal edema at night that goes away after getting up and starting her day. She had a stress test in October - I discussed this with Dr. Vincent - he notes that no imaging was done, she had mild indeterminate EKG changes. The plan at the time was to repeat stress test if she developed further symptoms, and he feels that this would be warranted now. - Physical Exam General: Alert, Oriented x3, Cooperative HEENT: Atraumatic, PERRLA, EOMI, Normocephalic Neck: Supple, No JVD, Negative Carotid Bruits Lungs: Clear to auscultation, Normal air movement Cardiovascular: Regular rate, Murmur - 2/6 systolic murmur best at 2nd intercostal space LSB Abdomen: Bowel Sounds Present, Soft, Non Tender Extremities: No edema, Capillary Refill Less than 3 Seconds Skin: No rashes, No breakdown Musculoskeletal: No Tenderness to Palpation of Joints or Extremities Neurological: Cranial nerves II-XII grossly intact Psych/Mental Status: Normal Affect, Appropriate Vital Signs Temp Pulse Resp BP Pulse Ox 98.4 F 71 18 110/65 98 01/13/18 08:58 01/13/18 08:58 01/13/18 08:58 01/13/18 08:58 01/13/18 08:58 Oxygen Delivery Method Room Air Weight: 182 lb 5.156 oz Body Mass Index (BMI) 33.3 Finger Stick Blood Glucose 129 Intake and Output for Last 24 Hours 01/11/18 01/12/18 01/13/18 23:59 23:59 23:59 Intake Total 480 / 480 Balance 480 / 480 Laboratory Tests Past 24 Hrs 01/12/18 01/12/18 01/12/18 19:17 19:17 19:17 WBC 9.9 RBC 4.33 Hgb 11.9 L Hct 37.6 MCV 86.8 MCH 27.5 MCHC 31.6 L RDW 13.2 RDW Differential 40.9 Plt Count 299 MPV 8.9 Immature Gran % (Auto) 0.200 Neut % (Auto) 55.9 Lymph % (Auto) 36.3 [place] % (Auto) 5.4 Eos % (Auto) 2.0 Baso % (Auto) 0.2 Absolute Neuts (auto) 5.5 Absolute Lymphs (auto) 3.58 Total Counted Not Reportable D-Dimer Quant (PE/DVT) < 0.27 L Sodium Cancelled Potassium Cancelled Chloride Cancelled Carbon Dioxide Cancelled Anion Gap Cancelled BUN Cancelled Creatinine Cancelled Estim Creat Clear Calc Cancelled Est GFR (MDRD) Af Amer Cancelled Est GFR (MDRD) Non-Af Cancelled BUN/Creatinine Ratio Cancelled Glucose Cancelled Calcium Cancelled Troponin I Cancelled TSH Cancelled Serum , Qual 01/12/18 01/12/18 01/12/18 19:17 19:35 19:35 WBC RBC Hgb Hct MCV MCH MCHC RDW RDW Differential Plt Count MPV Immature Gran % (Auto) Neut % (Auto) Lymph % (Auto) [place] % (Auto) Eos % (Auto) Baso % (Auto) Absolute Neuts (auto) Absolute Lymphs (auto) Total Counted D-Dimer Quant (PE/DVT) Sodium 141 Potassium 3.8 Chloride 108 H Carbon Dioxide 26.0 Anion Gap 7 BUN 8 Creatinine 0.82 Estim Creat Clear Calc 76.46 Est GFR (MDRD) Af Amer 103 Est GFR (MDRD) Non-Af 85 BUN/Creatinine Ratio 9.8 L Glucose 84 Calcium 8.9 Troponin I < 0.015 TSH 1.03 Serum , Qual Cancelled NEGATIVE 01/13/18 05:32 WBC RBC Hgb Hct MCV MCH MCHC RDW RDW Differential Plt Count MPV Immature Gran % (Auto) Neut % (Auto) Lymph % (Auto) [place] % (Auto) Eos % (Auto) Baso % (Auto) Absolute Neuts (auto) Absolute Lymphs (auto) Total Counted D-Dimer Quant (PE/DVT) Sodium 141 Potassium 3.7 Chloride 109 H Carbon Dioxide 26.0 Anion Gap 6 BUN 7 Creatinine 0.78 Estim Creat Clear Calc 80.38 Est GFR (MDRD) Af Amer 109 Est GFR (MDRD) Non-Af 90 BUN/Creatinine Ratio 9.0 L Glucose 103 Calcium 8.3 L Troponin I TSH Serum , Qual Medical Necessity - Tobacco Use Smoking Status: Never smoker Assessment/Plan All Active Problems (Last Reviewed 01/12/18 @ 22:25 by Humberto Aguilar MD) Symptomatic bradycardia (Acute) Abdominal pain (Acute) Prolapse of intestine (Acute) Diverticulosis (Acute) Hemorrhoids (Acute) Anal fissure (Acute) 1. Symptomatic bradycardia - rate improved with discontinuation of atenolol. Rate is sinus arrhythmia. Occasional palpitations continue. Negative troponin. + Chest pain as noted. D/w Dr. Vincent - indeterminate non-imaging stress test done in october - he feels a repeat would be warranted. I called Dr. Pierce to discuss options - he feels that the best option would be to obtain a 2d echo, followed by a Cardiolite treadmill stress test. This will be done in the AM. -TSH, , and d dimer also neg. 2. Hx sinus arrhythmia - plan as above. 3. Hx MR - re-evaluate with echo. 4. Hx Crohn's - continue home meds 5. hx PCOS DVT ppx: lovenox DC planning: pending results of AM stress test. This patient was seen by Duy Treadwell PA-C under the supervision of Doctor Dill. <Gali Dill - Last Filed: 01/13/18 15:46> - Physical Exam Vital Signs Temp Pulse Resp BP Pulse Ox 98.4 F 81 18 102/63 99 01/13/18 15:23 01/13/18 15:23 01/13/18 15:23 01/13/18 15:23 01/13/18 15:23 Oxygen Delivery Method Room Air Weight: 82.7 kg Body Mass Index (BMI) 33.3 Finger Stick Blood Glucose 129 Intake and Output for Last 24 Hours 01/11/18 01/12/18 01/13/18 23:59 23:59 23:59 Intake Total 960 / 960 Balance 960 / 960 Laboratory Tests Past 24 Hrs 01/12/18 01/12/18 01/12/18 19:17 19:17 19:17 WBC 9.9 RBC 4.33 Hgb 11.9 L Hct 37.6 MCV 86.8 MCH 27.5 MCHC 31.6 L RDW 13.2 RDW Differential 40.9 Plt Count 299 MPV 8.9 Immature Gran % (Auto) 0.200 Neut % (Auto) 55.9 Lymph % (Auto) 36.3 [place] % (Auto) 5.4 Eos % (Auto) 2.0 Baso % (Auto) 0.2 Absolute Neuts (auto) 5.5 Absolute Lymphs (auto) 3.58 Total Counted Not Reportable D-Dimer Quant (PE/DVT) < 0.27 L Sodium Cancelled Potassium Cancelled Chloride Cancelled Carbon Dioxide Cancelled Anion Gap Cancelled BUN Cancelled Creatinine Cancelled Estim Creat Clear Calc Cancelled Est GFR (MDRD) Af Amer Cancelled Est GFR (MDRD) Non-Af Cancelled BUN/Creatinine Ratio Cancelled Glucose Cancelled Calcium Cancelled Troponin I Cancelled TSH Cancelled Serum , Qual 01/12/18 01/12/18 01/12/18 19:17 19:35 19:35 WBC RBC Hgb Hct MCV MCH MCHC RDW RDW Differential Plt Count MPV Immature Gran % (Auto) Neut % (Auto) Lymph % (Auto) [place] % (Auto) Eos % (Auto) Baso % (Auto) Absolute Neuts (auto) Absolute Lymphs (auto) Total Counted D-Dimer Quant (PE/DVT) Sodium 141 Potassium 3.8 Chloride 108 H Carbon Dioxide 26.0 Anion Gap 7 BUN 8 Creatinine 0.82 Estim Creat Clear Calc 76.46 Est GFR (MDRD) Af Amer 103 Est GFR (MDRD) Non-Af 85 BUN/Creatinine Ratio 9.8 L Glucose 84 Calcium 8.9 Troponin I < 0.015 TSH 1.03 Serum , Qual Cancelled NEGATIVE 01/13/18 01/13/18 05:32 10:51 WBC RBC Hgb Hct MCV MCH MCHC RDW RDW Differential Plt Count MPV Immature Gran % (Auto) Neut % (Auto) Lymph % (Auto) [place] % (Auto) Eos % (Auto) Baso % (Auto) Absolute Neuts (auto) Absolute Lymphs (auto) Total Counted D-Dimer Quant (PE/DVT) Sodium 141 Potassium 3.7 Chloride 109 H Carbon Dioxide 26.0 Anion Gap 6 BUN 7 Creatinine 0.78 Estim Creat Clear Calc 80.38 Est GFR (MDRD) Af Amer 109 Est GFR (MDRD) Non-Af 90 BUN/Creatinine Ratio 9.0 L Glucose 103 Calcium 8.3 L Troponin I < 0.015 TSH Serum , Qual Assessment/Plan This patient was seen in conjunction with HARVINDER Oliver. I have independently interviewed and examined the patient and reviewed pertinent historical, laboratory, and other data. Please refer to HARVINDER Oliver note for his patient's presentation, findings, and recommendations. I have reviewed and his note and concur with his documentation. 32-year-old female with past medical history of Crohn's disease, PCO S, palpitations, follows with Dr. Baptiste in the outpatient, status post 30-day event monitor comes in with complaints of worsening palpitations and syncope. Patient had initially presented to the emergency department and was going to be discharged when she is said to have had a syncopal episode. She denies any worsening chest pain though she admits that she is been having chest pain that radiates to the back. Denies any dizziness or palpitation. Concern about what could be the underlying factor or etiology. Vitals were reviewed and appears stable Physical Exam: Gen: Looks to be in some discomfort, not pale, not jaundiced CVS:HS I +II, regular, no murmurs RESP: Diminished at lung bases GI: Soft, bowel sounds present, nontender, no palpable organs EXT:No edema Labs reviewed, unremarkable BMP, negative troponins ASSESSMENT: 1. Syncope 2. Symptomatic bradycardia; atenolol held 3. History of hypokalemia 4. Anemia 5. PCOS 6. GERD Plan: Cardiology consult, stress test in a.m., continue to monitor on telemetry Code Visit Inpatient E&M: 91082 Subs Hosp L2
[2018-01-13] MEDS: Acetaminophen 325 MG Tablet 650 MG PO (22:58)
[2018-01-14] VITALS (14 sets, daily range): BP systolic 100–127; BP diastolic 60–75; PULSE 40–91; RESP 16–18; TEMP 36.6–37.1; O2SAT 96–98
[2018-01-14 05:43] LABS: Absolute Lymphocyte Count 3.58 X10^3/ul (0.83-4.51); Absolute Neutrophil Count 3.3 X10^3/uL (2.0-7.7); Basophil# 0.03 X10^3/uL; Basophil% 0.4 % (0-1); Eosinophil# 0.24 X10^3/uL; Eosinophils% 3.1 % (0-5); Hemoglobin 11.8 g/dl (12.0-15.0); Lymphocyte # 3.58 X10^3/ul (4.0); Lymphocyte % 46.9 % (19-41); Mean Corp Hgb Conc 31.9 g/gl (32-36); Mean Corpuscular Hgb 27.6 pg (27.0-32.0); Mean Corpuscular Volume 86.4 fL (81-99); Mean Platelet Vol. 8.9 fl (6.2-12.0); Monocyte# 0.46 X10^3/uL; Neutrophil # 3.31 X10^3/uL (2.7-7.7); Neutrophil % 43.3 % (47-70); Platelet Count 309 K/mm3 (150-450); RBC Distribution Width CV 12.7 % (11.6-14.6); RBC Distribution Width SD 39.4 fl (35.1-43.9); Red Blood Count 4.28 M/mm3 (4.2-5.4); White Blood Count 7.6 K/mm3 (4.4-11.0)
[2018-01-14 05:46] LABS: POSITIVE COUNT NO; POSITIVE DIFFERENTIAL NO; POSITIVE MORPHOLOGY NO
--- NOTE | 2018-01-14 05:55 | EKG12_ITS ---
Test Reason : AM EKG Blood Pressure : / mmHG Vent. Rate : 060 BPM Atrial Rate : 060 BPM P-R Int : 142 ms QRS Dur : 094 ms QT Int : 448 ms P-R-T Axes : 047 054 052 degrees QTc Int : 448 ms Sinus rhythm with marked sinus arrhythmia Confirmed by BÁRBARA WHARTON, ADY ([id number]), editor news VENKAT PRADO ([id number]) on 01/19/2018 2:17:47 PM Referred By: Anant Curran Confirmed By:ADY GRANGER MD
[2018-01-14 05:58] LABS: Partial Thromboplast Time 30.2 Seconds (24.1-36.2)
[2018-01-14 06:12] LABS: Anion Gap 8 (5-15); BUN 10 mg/dL (7-18); BUN/Creat Ratio 12.8 RATIO (10-20); Calcium,Total 8.5 mg/dL (8.5-10.1); Chloride 108 mmol/L (98-107); Creatinine, Serum 0.78 mg/dL (0.55-1.02); EST Glomerular Filtration Rate 89 mL/min (>60); Est Glom Filt Rate - Afr Amer 108 mL/min (>60); Estimated Creatinine Clearance 80.38 ml/min; Glucose 94 mg/dL (74-106); Potassium 3.9 mmol/L (3.5-5.1); Sodium Level 142 mmol/L (136-145)
[2018-01-14 06:36] LABS: Prothrombin Time (Protime)PT. 13.4 SECONDS (11.7-14.9)
--- NOTE | 2018-01-14 10:14 | STRESSREP ---
Stress Test Report Date: 01/14/2018 Procedure: Exercise tolerance test/imaging study Indications: Chest pain Consent: Per the patient Procedure: The patient exercised on a Severino protocol for 8 minutes completing Stage II and 2 minutes of Stage III achieving a peak heart rate of 179 bpm (96 % predicted maximal heart rate) with a peak blood pressure 138/50 mmHg and a peak MET capacity of 9 METs. The baseline ECG demonstrated sinus arrhythmia. The peak exercise ECG demonstrated no obvious ECG changes. The cardiac rhythm pretest appeared compatible with sinus arrhythmia. The functional capacity was considered good. There was no complaint of chest discomfort during exercise or recovery. The examination was discontinued secondary to dyspnea. Impression: 1. Technically adequate (percent predicted maximal heart rate greater than 85%) exercise tolerance test 2. Peak exercise ECG no obvious ECG changes 3. The cardiac rhythm pretest appeared compatible with sinus arrhythmia 4. Nuclear images pending Myocardial perfusion imaging study: Technique: The patient was injected with 11.9 mCi of technetium 99m Cardiolite and subsequently rest SPECT Cardiolite nuclear imaging was obtained in the horizontal long, vertical long, and short axis views. The patient exercised on a Severino protocol for 8 minutes completing Stage II and 2 minutes of Stage III achieving a peak heart rate of 179 bpm (96 % predicted maximal heart rate) with a peak blood pressure 138/50 mmHg and a peak MET capacity of 9 METs. The patient was injected with 33.2 mCi of technetium 99m Cardiolite and subsequently stress SPECT Cardiolite nuclear imaging was obtained in the horizontal long, vertical long, and short axis views. A gated Cardiolite study at peak stress was obtained. Interpretation: Rest and stress SPECT Cardiolite nuclear imaging status post realignment, normalization, and attenuation correction, demonstrates the appearance of relative uniform tracer uptake and myocardial perfusion appearing within normal limits. There is end systolic thickening and brightening. The gated Cardiolite study demonstrates myocardial thickening and inward wall motion. The reported LVEF is 81 %. Impression: 1. Rest and stress SPECT Cardiolite nuclear imaging demonstrate relative uniform tracer uptake and myocardial perfusion appearing within normal limits. 2. The gated Cardiolite study reports an LVEF of 81 %. This note was generated with [employer] software. It may contain incorrect words, spelling, and punctuation that were not noted in checking the note before signing.
--- NOTE | 2018-01-14 11:06 | PN_ITS ---
Patient Problems: Active and Suspected Problems (Last Reviewed 01/12/18 @ 22:25 by Humberto Aguilar MD) Symptomatic bradycardia (Acute) Subjective: Patient was seen and examined. No acute events on telemetry. Complains of still feeling tired and anxious. Heart rate on telemetry went as low as 40. Denies chest pain or dizziness or palpitations. Vitals/I&O's: Vital Signs Temp Pulse Resp BP Pulse Ox 98.7 F 78 18 127/68 H 98 01/14/18 09:02 01/14/18 09:02 01/14/18 09:02 01/14/18 09:02 01/14/18 09:02 Oxygen Delivery Method Room Air Weight: 82.7 kg Body Mass Index (BMI) 33.3 Finger Stick Blood Glucose 129 Intake and Output for Last 24 Hours 01/12/18 01/13/18 01/14/18 23:59 23:59 23:59 Intake Total 960 / 960 360 / 360 Balance 960 / 960 360 / 360 General: Alert, Oriented x3, Cooperative, No apparent distress HEENT: Atraumatic, PERRLA, EOMI, Normocephalic Neck: Supple, No JVD, Negative Carotid Bruits Lungs: Clear to auscultation, Normal air movement Cardiovascular: Regular rate, Regular Rhythm, Normal S1, Normal S2, No murmurs Abdomen: Bowel Sounds Present, Soft, Non Tender, Non-Distended, No Hepato- splenomegaly Extremities: No edema Skin: No rashes, No breakdown Musculoskeletal: No Tenderness to Palpation of Joints or Extremities Lymphatic: No Cervical, Supraclavicular, or Inguinal Adenopathy Neurological: Cranial nerves II-XII grossly intact, Neuro grossly intact Psych/Mental Status: Normal Affect, Anxious Laboratory Results 01/13/18 10:51: Troponin I < 0.015 01/14/18 05:10: WBC 7.6, RBC 4.28, Hgb 11.8 L, Hct 37.0, MCV 86.4, MCH 27.6, MCHC 31.9 L, RDW 12.7, RDW Differential 39.4, Plt Count 309, MPV 8.9, Immature Gran % (Auto) 0.300, Neut % (Auto) 43.3 L, Lymph % (Auto) 46.9 H, [place] % (Auto) 6.0, Eos % (Auto) 3.1, Baso % (Auto) 0.4, Absolute Neuts (auto) 3.3, Absolute Lymphs (auto) 3.58, Total Counted Not Reportable 01/14/18 05:10: PT 13.4, INR 1.0, APTT 30.2 01/14/18 05:10: Sodium 142, Potassium 3.9, Chloride 108 H, Carbon Dioxide 26.0, Anion Gap 8, BUN 10, Creatinine 0.78, Estim Creat Clear Calc 80.38, Est GFR (MDRD) Af Amer 108, Est GFR (MDRD) Non-Af 89, BUN/Creatinine Ratio 12.8, Glucose 94, Calcium 8.5 Current Medications Acetaminophen (Tylenol) 650 mg PO Q6H PRN PRN PRN Reason: PAIN Last Admin: 01/13/18 22:58 Dose: 650 mg Enoxaparin Sodium (Lovenox) 40 mg SC DAILY@1000 [facility] Last Admin: 01/14/18 09:03 Dose: Not Given Fluticasone Propionate (Flonase Nasal [place]) 1 spray NASAL BID [facility] Last Admin: 01/13/18 21:27 Dose: 1 spray Loratadine (Claritin) 10 mg PO DAILY [facility] Last Admin: 01/13/18 09:05 Dose: 10 mg Magnesium Hydroxide (Milk Of Magnesia) 30 ml PO DAILY PRN PRN Reason: Constipation [facility] Last Admin: 01/13/18 09:04 Dose: 1 tablet Pantoprazole Sodium (Protonix) 20 mg PO DAILY [facility] Last Admin: 01/13/18 09:05 Dose: 20 mg Pindolol (Pindolol) 2.5 mg PO DAILY [facility] Potassium Chloride (K-Dur) [facility]q [facility] Last Admin: 01/13/18 09:08 Dose: 40 meq Sodium Chloride () 5 - 30 ml IV UD PRN PRN Reason: SALINE FLUSH Medical Necessity - Tobacco Use Smoking Status: Never smoker Assessment/Plan All Active Problems (Last Reviewed 01/12/18 @ 22:25 by Humbreto Aguilar MD) Symptomatic bradycardia (Acute) Abdominal pain (Acute) Prolapse of intestine (Acute) Diverticulosis (Acute) Hemorrhoids (Acute) Anal fissure (Acute) 32-year-old female with past medical history of Crohn's disease, PCO S, palpitations, follows with Dr. Baptiste in the outpatient, status post 30-day event monitor comes in with complaints of worsening palpitations and syncope. Patient had initially presented to the emergency department and was going to be discharged when she is said to have had a syncopal episode. 1. Syncope/Symptomatic bradycardia, home atenolol held, no bradycardia seen,, 2D echo shows normal EF, stress test negative Discussed with Dr. Baptiste on phone, requested that patient be started on pindolol 2.5 mg daily, monitor on telemetry for bradycardia, if no bradycardia overnight, patient may be discharge on pindolol and follow-up with him on Wednesday in the office. 2. History of anxiety, intolerant of SSRIs pain history, started on Ativan as needed, discussed reluctance to prescribe Ativan in the outpatient, will monitor 3. History of hypokalemia, potassium is normal, will monitor 4. Anemia, normocytic normochromic, stable at 11.8 5. PCOS 6. GERD, on PPI 7. DVT prophylaxis with Lovenox subcu Code Visit Inpatient E&M: 09416 Subs Hosp L2
[2018-01-14] MEDS: Loratadine 10 MG Tablet PO (11:25)
[2018-01-14] MEDS: Multivitamins,Therapeutic Tablet 1 TABLET PO (11:25)
[2018-01-14] MEDS: Pantoprazole Sodium 20 MG Tablet PO (11:25)
[2018-01-14] MEDS: Fluticasone 0.05% 1 SPRAY NASAL.SRY NASAL ×2 (11:26→22:17)
[2018-01-14] MEDS: LORazepam 1 MG Tablet PO (15:43)
[2018-01-14 16:59] LABS: Ferritin 33 ng/mL (8-252); Iron 72 ug/dL (50-170); Iron Binding Capacity,Total 283 ug/dL (250-450); PERCENT IRON SATURATION 25.4 % (15.0-55.0)
[2018-01-14] MEDS: Acetaminophen 325 MG Tablet 650 MG PO (22:16)
[2018-01-15 03:01] VITALS: PULSE 87
[2018-01-15 04:10] VITALS: BP 102/56; PULSE 96; RESP 16; TEMP 37; O2SAT 96
[2018-01-15 04:15] VITALS: O2SAT 96
[2018-01-15 06:57] VITALS: PULSE 79
[2018-01-15 07:50] VITALS: O2SAT 98
[2018-01-15] MEDS: Fluticasone 0.05% 1 SPRAY NASAL.SRY NASAL (08:32)
[2018-01-15] MEDS: Multivitamins,Therapeutic Tablet 1 TABLET PO (08:32)
[2018-01-15] MEDS: Loratadine 10 MG Tablet PO (08:32)
[2018-01-15] MEDS: Pantoprazole Sodium 20 MG Tablet PO (08:33)
[2018-01-15] MEDS: LORazepam 1 MG Tablet PO (08:37)
[2018-01-15 10:10] VITALS: BP 118/74; PULSE 91; RESP 16; TEMP 37.3; O2SAT 98
--- NOTE | 2018-01-15 10:17 | DCINST_ITS ---
- Discharge Diagnoses Current Active Problems: Current Active and Chronic Problems (Last Reviewed 01/12/18 @ 22:25 by Humberto Aguilar MD) Symptomatic bradycardia (Acute) You will use the following diet at home:: Cardiac Your food should be the consistency of: Regular Discharge Activity: Return to Normal Activity, May not drive while taking narcotic pain medications. - for bradycardia and check with PCP 1 WEEK for resumtion Call your doctor if you observe: Fever of 101 or Higher, Change in Color, Inability to have a bowel movement, Shortness of breath, Dizziness, Fainting spells, Swelling in the ankles, Chest pain Allergies/Adverse Reactions: Allergies eucalyptus Allergy (Mild, Verified 01/12/18 18:51) unknown latex Allergy (Mild, Verified 01/12/18 18:51) Unknown cephalexin monohydrate [From Keflex] Allergy (Verified 01/12/18 18:51) Anaphylaxis doxycycline Adverse Reaction (Verified 01/12/18 18:51) Diarrhea Medications to take at Discharge Omeprazole [Prilosec] 20 mg PO DAILY 11/30/16 cetirizine 10 mg tablet 10 mg PO QDAY 06/28/17 multivitamin tablet 1 tab PO DAILY 12/13/17 Potassium Chloride [Klor-Con] 40 meq PO DAILY 01/12/18 Lidocaine 2% Jelly [Xylocaine 2% Jelly] 1 applicatio TOPICAL PRN PRN 01/13/18 Nifedipine, Micronized [Nifedipine Micronized] 1 applicatio TOPICAL PRN PRN 01/13/18 Pindolol [Pindolol (Beta David)] 2.5 mg PO DAILY #30 tablet 01/15/18 The following prescriptions were given: Pindolol [Pindolol (Beta David)] 2.5 mg PO DAILY #30 tablet Primary Care Physician: Anant Curran DO [Primary Care Provider] - Please follow up with your Primary Care Physician in: in 1 week Test Results: Test results from this visit will be discussed in further detail at your follow- up appointment, if applicable. Please Follow Up With: Sterling Pearson MD When: in 2 weeks for bradycardia
--- NOTE | 2018-01-15 10:17 | PCM.DC.SUM ---
Discharge Date and Diagnosis Date of Admission: 01/12/18 Date of Discharge: 01/15/18 - Primary Discharge Diagnosis Active and Suspected Problems (Last Reviewed 01/12/18 @ 22:25 by Humberto Aguilar MD) Symptomatic bradycardia (Acute) - Secondary Discharge Diagnosis Chronic Problems (Last Reviewed 01/12/18 @ 22:25 by Humberto Aguilar MD) Endometriosis (Chronic) refer to [facility] for diagnostic surgical evaluation possible hysterectomy, history of severe scar tissue seen on previous laparoscopy Ovarian cyst (Chronic) Diarrhea (Chronic) Hematochezia (Chronic) PCOS (polycystic ovarian syndrome) (Chronic) Ankylosing spondylitis (Chronic) Exercise-induced asthma (Chronic) Mitral regurgitation (Chronic) Tachycardia (Chronic) Hospital Course and Treatment Summary of Care Provided: The patient is a 32 year old F with past medical history of Crohn's disease, PCOS, palpitations, follows with Dr. Baptiste in the outpatient, status post 30-day event monitor was admitted with worsening palpitations and syncope. Patient had initially presented to the emergency department and was going to be discharged when she is said to have had a syncopal episode. 1. Syncope/Symptomatic bradycardia, home atenolol held, no bradycardia seen,, 2D echo shows normal EF, stress test negative Discussed with Dr. Baptiste on phone, requested that patient started on pindolol 2.5 mg daily and monitored on the telemetry. Patient on telemetry shows sinus rhythm with heart rate in 70s to 80/min. Patient was advised to follow with Dr. Baptiste on Wednesday in the office. 2. History of anxiety, intolerant of SSRIs pain history, started on Ativan as needed. Patient requested saying that she did good with Ativan as an outpatient. 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 She states her grandmother is on Ativan and probably has tried her pill. Patient was given a prescription of Xanax 0.5 mg 3 times daily as needed for anxiety total 7 tablets. Follow with PCP. 3. History of hypokalemia, potassium is normal, resolved. 4. Anemia, normocytic normochromic, stable at 11.8. Iron profile was done and is within normal limit. She had concern of hemochromatosis but iron is 72, iron saturation 25.4% and ferritin 33. 5. PCOS 6. GERD, on PPI 7. DVT prophylaxis with Lovenox subcu [] Discharge medication reconciliation done. Discharge follow-up which was completed. Total time spent, exact 35 minutes, more than half on the discussion of anxiety/panic attack and on discharge meds reconciliation, examination, review of imaging and blood test and discussion with the patient on follow-up instructions. - Physical Exam General: Alert, Oriented x3, Cooperative HEENT: Atraumatic, PERRLA, EOMI, Normocephalic Neck: Supple, No JVD, Negative Carotid Bruits Lungs: Clear to auscultation, Normal air movement, No rhonchi, No wheeze, No rales Cardiovascular: Regular rate, Regular Rhythm, Normal S1, Normal S2, No murmurs Abdomen: Bowel Sounds Present, Soft, Non Tender, Non-Distended Extremities: No edema, Capillary Refill Less than 3 Seconds Skin: No rashes, No breakdown Musculoskeletal: No Tenderness to Palpation of Joints or Extremities Neurological: Cranial nerves II-XII grossly intact Psych/Mental Status: Normal Affect, Appropriate Vital Signs Temp Pulse Resp BP Pulse Ox 98.6 F 79 16 102/56 L 98 01/15/18 04:10 01/15/18 06:57 01/15/18 04:10 01/15/18 04:10 01/15/18 07:50 Oxygen Delivery Method Room Air Weight: 182 lb 5.156 oz Body Mass Index (BMI) 33.3 Finger Stick Blood Glucose 129 Intake and Output for Last 24 Hours 01/13/18 01/14/18 01/15/18 23:59 23:59 23:59 Intake Total 960 / 960 2210 / 2210 0 / 0 Output Total 0 / 0 Balance 960 / 960 2210 / 2210 0 / 0 Laboratory Tests Past 24 Hrs 01/14/18 05:10 Iron 72 TIBC 283 Iron Saturation 25.4 Ferritin 33 Discharge Activity: Return to Normal Activity, May not drive while taking narcotic pain medications. - for bradycardia and check with PCP 1 WEEK for resumtion Call your doctor if you observe: Fever of 101 or Higher, Change in Color, Inability to have a bowel movement, Shortness of breath, Dizziness, Fainting spells, Swelling in the ankles, Chest pain Home Medications: Medications to take at Discharge Omeprazole [Prilosec] 20 mg PO DAILY 11/30/16 cetirizine 10 mg tablet 10 mg PO QDAY 06/28/17 multivitamin tablet 1 tab PO DAILY 12/13/17 Potassium Chloride [Klor-Con] 40 meq PO DAILY 01/12/18 Lidocaine 2% Jelly [Xylocaine 2% Jelly] 1 applicatio TOPICAL PRN PRN 01/13/18 Nifedipine, Micronized [Nifedipine Micronized] 1 applicatio TOPICAL PRN PRN 01/13/18 Alprazolam [Xanax] 0.25 mg PO TID PRN PRN #7 tab 01/15/18 Pindolol [Pindolol (Beta David)] 2.5 mg PO DAILY #30 tablet 01/15/18 Following Prescrptions Were Given to Patient: Alprazolam [Xanax] 0.25 mg PO TID PRN PRN #7 tab PRN Reason: Anxiety Pindolol [Pindolol (Beta David)] 2.5 mg PO DAILY #30 tablet Primary Care Physician: Anant Curran DO [Primary Care Provider] - Please follow up with your Primary Care Physician in: in 1 week Please Follow Up With: Sterling Pearson MD When: in 2 weeks for bradycardia Medical Necessity - Tobacco Use Smoking Status: Never smoker Meaningful Use Info Meaningful Use Diagnoses (Choose all that apply): None applicable Code Visit Inpatient E&M: 14354 Disch Hosp
== END 2018-01-15 10:16 | disposition home or self-care (01) ==
LOC: ED 19:41 → PCU 22:42
PROVIDERS: Internal Medicine; Physician Assistant; Admitting Provider Hospitalist; Emergency Provider Emergency Medicine; Family Provider Family Medicine; PCP Family Medicine; Visit Provider Internal Medicine
DX: R55 Syncope and collapse (principal); K21.9 Gastro-esophageal reflux disease without esophagitis; E28.2 Polycystic ovarian syndrome; D64.9 Anemia, unspecified; E87.6 Hypokalemia; K50.90 Crohn's disease, unspecified, without complications; J45.990 Exercise induced bronchospasm; R00.1 Bradycardia, unspecified; M45.9 Ankylosing spondylitis of unspecified sites in spine; Z79.890 Hormone replacement therapy; E66.9 Obesity, unspecified; Z68.33 Body mass index [BMI] 33.0-33.9, adult; Z71.3 Dietary counseling and surveillance; F41.9 Anxiety disorder, unspecified
CPT/HCPCS: 36415; 71045; 78452; 80048; 82728; 83540; 83550; 84443; 84484; 84703; 85025; 85379; 85610; 85730; 93005; 93017; 93306; 96360; 96372; 99218; 99284; A9500; J7030; A4216; G0378

== ENCOUNTER 2018-01-18 15:53 | Emergency (ER) | payer MEDICAID, SELFPAY ==
[2018-01-18 15:53] VITALS: BP 128/86; PULSE 83; RESP 18; TEMP 36.4; O2SAT 100; BMI 32.9
--- NOTE | 2018-01-18 16:02 | EKG12_ITS ---
Test Reason : CP/PALPS Blood Pressure : / mmHG Vent. Rate : 084 BPM Atrial Rate : 084 BPM P-R Int : 126 ms QRS Dur : 088 ms QT Int : 372 ms P-R-T Axes : 062 062 059 degrees QTc Int : 439 ms Sinus rhythm with Premature supraventricular complexes Otherwise normal ECG Confirmed by BÁRBARA WHARTON, ADY ([id number]), movie editor VENKAT PRADO ([id number] on 01/21/2018 1:08:57 PM Referred By: NOHEMY Confirmed By:ADY GRANGER MD
--- NOTE | 2018-01-18 16:20 | RAD_ITS ---
STUDY: X-RAY CHEST REASON FOR EXAM: Female, 32 years old. Palpitations TECHNIQUE: PA and lateral views of the chest. COMPARISON: 01/12/2018 FINDINGS: EKG leads overlie the chest The lungs are clear and expanded. There is no demonstrated pleural abnormality. Normal size heart. Normal mediastinum and jim. Normal visualized pulmonary arteries. Normal visualized aortic arch and descending thoracic aorta. Normal visualized thoracic spine. Normal visualized ribs, clavicles, and shoulders. There is no demonstrated abnormality of the visualized soft tissue structures of the upper abdomen. RAD/Chest PA and Lateral IMPRESSION: Normal x-ray examination of the chest. Electronically Signed: Chivo Faust MD at 16:34 EDT , Service support ,
[2018-01-18 16:39] LABS: Absolute Lymphocyte Count 3.54 X10^3/ul (0.83-4.51); Absolute Neutrophil Count 5.3 X10^3/uL (2.0-7.7); Basophil# 0.02 X10^3/uL; Basophil% 0.2 % (0-1); Eosinophil# 0.22 X10^3/uL; Eosinophils% 2.3 % (0-5); Hematocrit 39.8 % (37-47); Hemoglobin 12.6 g/dl (12.0-15.0); Lymphocyte # 3.54 X10^3/ul (4.0); Lymphocyte % 36.2 % (19-41); Mean Corp Hgb Conc 31.7 g/gl (32-36); Mean Corpuscular Hgb 27.5 pg (27.0-32.0); Mean Corpuscular Volume 86.7 fL (81-99); Mean Platelet Vol. 8.9 fl (6.2-12.0); Monocyte# 0.64 X10^3/uL; Monocyte% 6.6 % (0-10); Neutrophil # 5.33 X10^3/uL (2.7-7.7); Neutrophil % 54.5 % (47-70); Platelet Count 309 K/mm3 (150-450); RBC Distribution Width SD 41.4 fl (35.1-43.9); Red Blood Count 4.59 M/mm3 (4.2-5.4); White Blood Count 9.8 K/mm3 (4.4-11.0)
[2018-01-18 16:43] LABS: POSITIVE COUNT NO; POSITIVE DIFFERENTIAL NO; POSITIVE MORPHOLOGY NO
[2018-01-18 16:54] LABS: Anion Gap 6 (5-15); BUN 12 mg/dL (7-18); BUN/Creat Ratio 15.8 RATIO (10-20); Calcium,Total 9.4 mg/dL (8.5-10.1); Chloride 104 mmol/L (98-107); Creatinine, Serum 0.76 mg/dL (0.55-1.02); EST Glomerular Filtration Rate 93 mL/min (>60); Est Glom Filt Rate - Afr Amer 112 mL/min (>60); Estimated Creatinine Clearance 82.49 ml/min; Glucose 89 mg/dL (74-106); Potassium 3.7 mmol/L (3.5-5.1); Sodium Level 141 mmol/L (136-145)
--- NOTE | 2018-01-18 17:10 | ED.VISSUMM ---
- ER Visit Summary Date of Service: 01/18/18 Chief Complaint: Patient has a multitude of symptoms which include headache, palpitations, fast heart rate, fatigue and left-sided chest pain. History of Present Illness: The patient is a 32 F who was recently admitted to the hospital underwent significant workup. She has symptomatic bradycardia. Beta-blockers were terminated. She did wear a Holter monitor and the monitor revealed variance in heart rate from 40s to as high as 135. PACs were noted. There was no evidence of paroxysmal H tachycardia, narrow complex reentry tachycardia etc. Patient apparently perceives all of her PACs. She reports night sweats. She does have history of polycystic ovarian syndrome. She denies ocular, visual auditory symptoms. She presently denies headache or chest pain. She denied any GI or symptoms. She denies history of PE or DVT. She states she was started on Paxil for presumed anxiety. Please read written note for complete detail Physical Examination: Vital signs noted. Blood pressure is slightly elevated 128/86. BMI is 32.9. Affect is depressed. HEENT exam is unremarkable. Heart is regular with occasional ectopic beat and noted to be a PAC on the monitor. Lungs are clear to auscultation. Abdomen is soft nontender. There is no asymmetry, swelling, discoloration, leg vein distention, palpable cords or tenderness along the distribution of the deep venous system. Neuro exam is nonfocal. Please read written note for complete detail Test Results: EKG interpreted by me as sinus rhythm with premature supraventricular complexes and a ventricular rate of 84. [place] interval, QRS duration and QT interval are normal. [place] is normal. CBC, basic medical panel and troponin are normal. Emergency Department Course and Treatment: Dr. Baptiste's office was contacted since there is no Holter monitor report. I was informed by his nurse Yesy that she had a wide range of heart rate with PACs and no significant dysrhythmia. Patient was informed of the Holter monitor results. She was informed discussed medication options with Dr. Baptiste. He recommended that she take the medication he prescribed and he will see her at 115 for her scheduled appointment tomorrow January 19. Treatment Plan: Keep appointment with Dr. Ricardo Baptiste tomorrow Disposition: Discharged home Impression: Sinus rhythm with variable heart rate and premature atrial complexes Multiple vague somatic symptoms History of polycystic ovarian syndrome This note was generated with Dragon dictation software. It may contain incorrect words, spelling, and punctuation that were not noted in review of the chart prior to signing ED Disposition - Plan for ED Patient: Disposition: Home or Assisted Living Chief Complaint: Palpitations Instructions: ED Palpitations Referrals: Anant Curran DO [Primary Care Provider] - Additional Instructions: Keep your appointment with Dr. Ricardo Baptiste for tomorrow at 1315.
[2018-01-18 17:32] VITALS: BP 129/74; PULSE 96; RESP 16; O2SAT 98
== END 2018-01-18 17:33 | disposition home or self-care (01) ==
PROVIDERS: Emergency Provider Emergency Medicine; Family Provider Family Medicine; PCP Family Medicine
DX: I49.1 Atrial premature depolarization (principal); F45.0 Somatization disorder; E28.2 Polycystic ovarian syndrome; E66.9 Obesity, unspecified; Z68.32 Body mass index [BMI] 32.0-32.9, adult
CPT/HCPCS: 71046; 80048; 84484; 85025; 93005; 99284

== ENCOUNTER → 2018-03-09 15:51 | Outpatient (CLI) | payer MEDICAID, SELFPAY ==
[2018-02-10 14:22] VITALS: BMI 33.3
[2018-03-09 17:28] LABS: Absolute Lymphocyte Count 3.25 X10^3/ul (0.83-4.51); Absolute Neutrophil Count 4.4 X10^3/uL (2.0-7.7); Basophil# 0.02 X10^3/uL; Basophil% 0.2 % (0-1); Eosinophil# 0.18 X10^3/uL; Eosinophils% 2.2 % (0-5); Hematocrit 40.6 % (37-47); Hemoglobin 13.2 g/dl (12.0-15.0); Lymphocyte # 3.25 X10^3/ul (4.0); Lymphocyte % 39.1 % (19-41); Mean Corp Hgb Conc 32.5 g/gl (32-36); Mean Corpuscular Hgb 27.5 pg (27.0-32.0); Mean Corpuscular Volume 84.6 fL (81-99); Mean Platelet Vol. 9.3 fl (6.2-12.0); Monocyte# 0.45 X10^3/uL; Monocyte% 5.4 % (0-10); Platelet Count 313 K/mm3 (150-450); RBC Distribution Width CV 12.8 % (11.6-14.6); RBC Distribution Width SD 39.1 fl (35.1-43.9); White Blood Count 8.3 K/mm3 (4.4-11.0)
[2018-03-09 17:29] LABS: POSITIVE COUNT NO; POSITIVE DIFFERENTIAL NO; POSITIVE MORPHOLOGY NO
[2018-03-09 17:49] LABS: Vitamin B12 695 pg/mL (211-911)
[2018-03-09 18:40] LABS: Ferritin 30 ng/mL (8-252); Iron 58 ug/dL (50-170)
[2018-03-11 15:01] LABS: ANTINUCLEAR ANTIBODIES DIRECT Negative (Negative)
[2018-03-14 09:53] LABS: PROEL- A/G Ratio 0.9 (0.7-1.7); PROEL- Albumin 3.5 g/dL (2.9-4.4); PROEL- Alpha-1 Globulin 0.2 g/dL (0.0-0.4); PROEL- Alpha-2 Globulin 0.8 g/dL (0.4-1.0); PROEL- Beta Globulin 1.3 g/dL (0.7-1.3); PROEL- Gamma Globulin 1.4 g/dL (0.4-1.8); PROEL- Globulin, Total 3.7 g/dL (2.2-3.9); PROEL- TOTAL PROTEIN 7.2 g/dL (6.0-8.5)
[2018-03-14 14:54] LABS: PROELU- Albumin, Urine 30.6 % (.); PROELU- Alpha-1-Globulin,Ur 4.5 % (.); PROELU- Alpha-2-Globulin,Ur 15.3 % (.); PROELU- Beta Globulin, Ur 37.2 % (.); PROELU- Gamma Globulin, Ur 12.4 % (.); Total Protein, Ur 13.7 mg/dL (Not Estab.)
--- OUTSIDE RECORDS SUMMARY | 2018-04-25 21:38 | XMS RPT_ITS ---
:1985 Author Organization OHIP Support Name Relationship Address Phone DEBORAHSHAWNEE Glaser Unavailable [address] [phone] [place] [address] UE Unavailable Unavailable Unavailable SHAWNEE ARCE Unavailable [address] [phone] [place] [address] UE Unavailable Unavailable Unavailable SHAWNEE ARCE Unavailable [address] [phone] [place] [address] UE Unavailable Unavailable Unavailable SHAWNEE ARCE Unavailable [address] [phone] [place] [address] UE Unavailable Unavailable Unavailable SHAWNEE ARCE Unavailable [address] [phone] [place] [address] UE Unavailable Unavailable Unavailable SHAWNEE ARCE Unavailable Unavailable + SHAWNEE ARCE Unavailable Unavailable + SHAWNEE ARCE Unavailable [address] [phone] [place] [address] UE Unavailable Unavailable Unavailable SHAWNEE ARCE Unavailable [address] [place] [address] UE Unavailable Unavailable Unavailable SHAWNEE ARCE Unavailable [address] [phone] [place] [address] UE Unavailable Unavailable Unavailable SHAWNEE ARCE Unavailable [address] [phone] [place] [address] UE Unavailable Unavailable Unavailable SHAWNEE ARCE Unavailable Unavailable + SHAWNEE ARCE Unavailable Unavailable + SHAWNEE ARCE Unavailable [address] + [place] [address] UE Unavailable Unavailable Unavailable CLAUDENADINEAN Unavailable [address] + [place] [address] UE Unavailable Unavailable Unavailable CLAUDENADINEAN Unavailable [address] + [place] [address] UE Unavailable Unavailable Unavailable CLAUDENADINEAN Unavailable [address] + [place] [address] UE Unavailable Unavailable Unavailable CLAUDENADINEAN Unavailable [address] + [place] [address] UE Unavailable Unavailable Unavailable CLAUDE SHAWNEE Unavailable [address] + [place] [address] UE Unavailable Unavailable Unavailable CLAUDENADINEAN Unavailable [address] + [place] [address] UE Unavailable Unavailable Unavailable CLAUDE SHAWNEE Unavailable [address] + [place] [address] UE Unavailable Unavailable Unavailable CLAUDENADINEAN Unavailable [address] + [place] [address] UE Unavailable Unavailable Unavailable CLAUDE SHAWNEE Unavailable [address] + [place] [address] UE Unavailable Unavailable Unavailable CLAUDENADINEAN Unavailable Unavailable + SHAWNEE ARCE Unavailable Unavailable + SHAWNEE ARCE Unavailable Unavailable + SHAWNEE ARCE Unavailable Unavailable + SHAWNEE ARCE Unavailable Unavailable + CLAUDE SHAWNEE Unavailable Unavailable + SHAWNEE ARCE Unavailable Unavailable + SHAWNEE ARCE Unavailable [address] + [place] [address] UE Unavailable Unavailable Unavailable SHAWNEE ARCE Unavailable [address] + [place] [address] UE Unavailable Unavailable Unavailable SHAWNEE ARCE Unavailable [address] + [place] [address] UE Unavailable Unavailable Unavailable FICSATURNINO SHAWNEE Unavailable [address] + [place] [address] UE Unavailable Unavailable Unavailable FICKLJailyn SHAWNEE Unavailable Unavailable + FICSATURNINO SHAWNEE Unavailable Unavailable + FICGERARDE SHAWNEE Unavailable Unavailable + FICKLE SHAWNEE Unavailable Unavailable + FICKLJailyn SHAWNEE Unavailable Unavailable + FICKLE SHAWNEE Unavailable Unavailable + FICKLE SHAWNEE Unavailable [address] + [place] [address] UE Unavailable Unavailable Unavailable NADINE ARCEAN Unavailable Unavailable + FICSATURNINO SHAWNEE Unavailable Unavailable + FICGERARDE SHAWNEE Unavailable [address] + [place] [address] UE Unavailable Unavailable Unavailable CLAUDE SHAWNEE Unavailable [address] + [place] [address] UE Unavailable Unavailable Unavailable CLAUDE SHAWNEE Unavailable [address] + [place] [address] UE Unavailable Unavailable Unavailable CLAUDE SHAWNEE Unavailable Unavailable + FICKLJailyn SHAWNEE Unavailable Unavailable + FICGERARDE SHAWNEE Unavailable Unavailable + FICKLE SHAWNEE Unavailable Unavailable + FICKLE SHAWNEE Unavailable Unavailable + FICKLE SHAWNEE Unavailable [address] + [place] [address] UE Unavailable Unavailable Unavailable FICSATURNINO SHAWNEE Unavailable Unavailable + FICKLE SHAWNEE Unavailable Unavailable + FICKLE SHAWNEE Unavailable Unavailable + Care Team Providers Name Role Phone STERLING STERN Attending Unavailable STERLING STERN Referring Unavailable IMCA Referring Unavailable IMCA Primary Care Unavailable IMCA Referring Unavailable IMCA Primary Care Unavailable PETAR DENNIS) Attending Unavailable PETAR DENNIS) Referring Unavailable PETAR DENNIS) Attending Unavailable PETAR DENNIS () Referring Unavailable LEENA, STERLING E Referring Unavailable LEENA, STERLING E Attending Unavailable LEENA, STERLING E Referring Unavailable EDUARD SCHMIDT (DO) Attending Unavailable KIERSTEN HAYDEN Referring Unavailable FLYCKT, CHANCE Attending Unavailable JAMESONT, CHANCE Referring Unavailable ORA BAÑUELOS (PRINTED CIRCUIT PHOTOGRAPHER) Attending Unavailable LEENA, STERLING E Attending Unavailable LEENA, STERLING E Referring Unavailable ATHY, HELLEN R (PA) Referring Unavailable ATHY, HELLEN R (PA) Referring Unavailable LEENA, STERLING E Referring Unavailable VETOVITZ, CHERRY (PA) Attending Unavailable VETOVITZ, CHERRY (PA) Referring Unavailable MIRACLE UGARTE (PT) Attending Unavailable VETOVITZ, CHERRY (PA) Referring Unavailable ESAU ACEVEDO (PAC) Attending Unavailable VETOVITZ, CHERRY (PA) Referring Unavailable LEENA, STERLING E Referring Unavailable CARMEN DOHERTY Attending Unavailable PETAR DENNIS () Referring Unavailable Laquita Bedolla Attending Unavailable ILEANA LOCKHART MD Attending Unavailable JOSE CARLOS DRISCOLL, DR. RUDY Rick Primary Care Unavailable JOSE CARLOS DRISCOLL, DR. RUDY Rick Primary Care Unavailable JOHAN DRISCOLL, WILMAR Segura Attending Unavailable Danny, Dr. Apurva Mckenzie Attending Unavailable Ramses, Dr. Monroe Primary Care Unavailable Davin, Dr. Ora Lindsey Attending Unavailable Ramses, Dr. Monroe Primary Care Unavailable Davin, Dr. Ora Lindsey Attending Unavailable Ramses, Dr. Monroe Primary Care Unavailable Davin, Dr. Ora Lindsey Attending Unavailable Jose Carlos, Dr. Rudy Callahan Referring Unavailable Ramses, Dr. Monroe Primary Care Unavailable Davin, Dr. Ora Lindsey Attending Unavailable Ramses, Dr. Monroe Primary Care Unavailable Davin, Dr. Ora Lindsey Attending Unavailable Ramses, Dr. Monroe Primary Care Unavailable CECE DYKES Attending Unavailable Matt Taylor Referring Unavailable Ramses, Dr. Monroe Primary Care Unavailable CECE DYKES Attending Unavailable Jose Carlos, Dr. Rudy Callahan Referring Unavailable Pearce, Dr. Monroe Primary Care Unavailable CECE DYKES Attending Unavailable Jose Carlos, Dr. Rudy Callahan Referring Unavailable Pearce, Dr. Monroe Primary Care Unavailable CECE DYKES Attending Unavailable Jose Carlos, Dr. Rudy Callahan Referring Unavailable Pearce, Dr. Monroe Primary Care Unavailable [place] ANDERSON (PT) Attending Unavailable CHERRY VELOZ (PA) Referring Unavailable Ora Jin Admitting Unavailable Ora Jin B Attending Unavailable Jose Carlos, Rudy A Primary Care Unavailable Danny, Apurva Attending Unavailable Danny, Apurva Primary Care Unavailable Danny, Apurva Consulting Unavailable Matt Gross Attending Unavailable Jose Carlos, Rudy Referring Unavailable Jose Carlos, Rudy Primary Care Unavailable Jose Carlos, Rudy Attending Unavailable Jose Carlos, Rudy Primary Care Unavailable Jose Carlos, Rudy Referring Unavailable Emmanuel Wong Attending Unavailable Jose Carlos, Rudy Referring Unavailable Roof, Petar H Attending Unavailable Roof, Petar H Referring Unavailable Jose Carlos, Rudy Primary Care Unavailable Emmanuel Wong Attending Unavailable Roof, Petar H Referring Unavailable Humberto, Humberto T Attending Unavailable Humberto, Humberto T Referring Unavailable Jose Carlos, Rudy Primary Care Unavailable Chris Lockharta NAlessandra Attending Unavailable Jose Carlos, Rudy Primary Care Unavailable Maci Garcia Attending Unavailable Jose Carlos, Rudy Referring Unavailable Jose Carlos, Rudy Primary Care Unavailable Maci Garcia Attending Unavailable Marcanthony Maci Referring Unavailable Jose Carlos, Rudy Primary Care Unavailable Richy, Ileana N. Consulting Unavailable MELISSA STEWART Consulting Unavailable Maci Garcia Attending Unavailable Jose Carlos, Rudy Referring Unavailable Jose Carlos, Rudy Primary Care Unavailable Jose Carlos, Rudy Primary Care Unavailable Ceci Rivera Attending Unavailable Jose CarlosRudy Attending Unavailable Jose Carlos, Rudy Primary Care Unavailable Elise Gamboa Attending Unavailable Jose Carlos, Rudy Referring Unavailable Jose Carlos, Rudy Primary Care Unavailable Elise Gamboa Attending Unavailable Chicorelli, Elise Referring Unavailable Jose Carlos, Rudy Primary Care Unavailable Monica Carvajal Attending Unavailable Jose Carlos, Rudy Referring Unavailable Jose Carlos, Rudy Primary Care Unavailable Monica Carvajal Attending Unavailable Monica Carvajal Referring Unavailable Jose Carlos, Rudy Primary Care Unavailable Jose Carlos, Rudy Attending Unavailable Jose CarlosRudy Referring Unavailable Jose Carlos, Rudy Primary Care Unavailable Jose Carlos, Rudy Primary Care Unavailable Agyepong, Humberto Admitting Unavailable Rio Markos Attending Unavailable Agyepong, Humberto Admitting Unavailable Agyepong, Humberto Attending Unavailable Jose Carlos, Rudy Primary Care Unavailable Agyepong, Humberto Consulting Unavailable Agyepong, Humberto Admitting Unavailable Jose Carlos, Rudy Primary Care Unavailable Paintsil, [place] Consulting Unavailable Paintsil, [place] Attending Unavailable Agyepong, Humberto Admitting Unavailable Paintsil, [place] Attending Unavailable Jose Carlos, Rudy Primary Care Unavailable Rio, Markos Consulting Unavailable Agyepong, Humberto Admitting Unavailable Rio, Markos Attending Unavailable Jose Carlos, Rudy Primary Care Unavailable Rio, Markos Consulting Unavailable Jose Carlos, Rudy Primary Care Unavailable Israel Madrid Attending Unavailable Maci Garcia Attending Unavailable Rudy Curran Referring Unavailable Pernell Johnson Attending Unavailable Paintsil, [place] Referring Unavailable Moodisliza, Emmanuel Attending Unavailable Paintsil, [place] Referring Unavailable Angeles Mcwilliams Attending Unavailable Moodisparafael, Emmanuel Attending Unavailable Jose Carlos, Rudy Referring Unavailable PROBLEMS PROBLEMS DATE TYPE CONDITION / CODE ATTENDING STATUS SOURCE 04/07/2018 Unknown 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 - Lyme Humberto Paul Active [place] disease, unspecified [facility] / A69.20(ICD-10) Hospital Repository 04/07/2018 Unknown M25.50 - Pain in Humberto Paul Active [place] unspecified joint / [facility] M25.50(ICD-10) Hospital Repository 04/07/2018 Unknown R53.83 - Other Humberto Paul Active [place] fatigue / [facility] R53.83(ICD-10) Hospital Repository 03/15/2018 Unknown R00.0 - Tachycardia, Moodispaw, Active [place] unspecified / [facility] Community R00.0(ICD-10) Hospital Repository 03/09/2018 Unknown G62.9 - Rudy Curran Active [place] Polyneuropathy, Community unspecified / Hospital G62.9(ICD-10) Repository 03/09/2018 Unknown D64.9 - Anemia, Rudy Curran Active [place] unspecified / Community D64.9(ICD-10) Hospital Repository 02/10/2018 Unknown I34.0 - Nonrheumatic Moodispaw, Active [place] mitral (valve) [facility] insufficiency / Hospital I34.0(ICD-10) Repository 02/10/2018 Unknown R00.1 - Bradycardia, Moodispaw, Active [place] unspecified / [facility] R00.1(ICD-10) Hospital Repository 02/10/2018 Unknown R55 - Syncope and Moodispaw, Active [place] collapse / [facility] R55(ICD-10) Hospital Repository 02/08/2018 Unknown N83.209 - Marcanthony, Active [place] Unspecified ovarian [facility] cyst, unspecified Hospital side / Repository N83.209(ICD-10) 02/08/2018 Unknown N80.9 - Marcanthony, Active [place] Endometriosis, [facility] unspecified / Hospital N80.9(ICD-10) Repository 01/08/2018 Active Other dorsalgia / NA Active [facility] M54.89(ICD-10) Clinic Main [place] Repository 09/26/2008 Active Hidradenitis NA Active [facility] suppurativa / Clinic Main L73.2(ICD-10) [place] Repository 01/04/2018 Unknown M25.561 - Pain in Rudy Curran Active [facility] right knee / Community M25.561(ICD-10) Hospital Repository 01/04/2018 Unknown M79.645 - Pain in Rudy Curran Active [place] left finger(s) / Community M79.645(ICD-10) Hospital Repository 12/13/2017 Unknown E28.2 - Polycystic Wei, Active [facility] ovarian syndrome / [facility] E28.2(ICD-10) Hospital Repository 12/13/2017 Unknown R10.2 - Pelvic and Keenes, Active [place] perineal pain / [facility] R10.2(ICD-10) Hospital Repository 12/08/2017 Active Sciatica, left side NA Active [facility] / M54.32(ICD-10) Clinic Main [place] Repository 12/08/2017 Active Localized swelling, NA Active [facility] mass and lump, left Clinic Main lower limb / [place] R22.42(ICD-10) Repository 11/04/2017 Active Unspecified injury NA Active [facility] of left wrist, hand Clinic Main and finger(s), [place] initial encounter / Repository S69.92XA(ICD-10) 09/28/2017 Unknown M25.552 - Pain in Chicorelli, Active [place] left hip / [facility] M25.552(ICD-10) Hospital Repository 09/28/2017 Unknown M54.5 - Low back Chicorelli, Active [place] pain / M54.5(ICD-10) [facility] Hospital Repository 09/28/2017 Unknown R22.42 - Localized Chicorelli, Active [facility] swelling, mass and [facility] lump, left lower Hospital limb / Repository R22.42(ICD-10) 09/28/2017 Unknown M70.62 - Chicorelli, Active [facility] Trochan[facility]ic [facility] bursitis, left hip / Hospital M70.62(ICD-10) Repository 09/28/2017 Unknown S73.192A - Other Chicorelli, Active [facility] sprain of left hip, [facility] initial encounter / Hospital S73.192A(ICD-10) Repository 09/17/2017 Admitting Unknown / Pawa, Pratheep Active [facility] diagnosis UNK(Unknown) [place] Repository 09/01/2017 Active Unknown / KAILYN Active [place] UNK(Unknown) [facility] Main [place] Repository 08/25/2017 Admitting Localized swelling, Dr. Davin Active [facility] diagnosis mass and lump, left [facility] lower limb / [facility] Repository R22.42(ICD-10) 08/25/2017 Admitting Sacroiliitis, not Dr. Davin Active [facility] diagnosis elsewhere classified [facility] / M46.1(ICD-10) [place] Repository 08/25/2017 Final diagnosis Sacroiliitis, not Dr. Davin Active [facility] (discharge) elsewhere classified [facility] / M46.1(ICD-10) [place] Repository 08/25/2017 Final diagnosis Localized swelling, Dr. Davin Active [facility] (discharge) mass and lump, left [facility] lower limb / [place] Repository R22.42(ICD-10) 05/24/2012 Active Palpitations / NA Active [place] R00.2(ICD-10) Clinic Main [place] Repository 08/18/2017 Active Encounter for NA Active [place] therapeutic drug [facility] Main level monitoring / [place] Z51.81(ICD-10) Repository 07/06/2017 Final diagnosis Oth symptoms and Dr. Davin Active [facility] (discharge) signs involving the [facility] musculoskeletal [place] Repository system / R29.898(ICD-10) 07/06/[address] Davin Active [place] (discharge) junction syndrome [facility] [[facility]] / [place] Rep[facility] M94.0(ICD-10) 06/18/2017 Unknown E66.9 - Obesity, Raghunathan, Active [place] unspecified / [place] N. Community E66.9(ICD-10) Hospital Repository PROCEDURES PROCEDURES No Procedure Records FoundRESULTS RESULTS COMPLEMENT CH50 Collected: 04/07/2018 Status: F Source: [place] 4:08 PM [facility] REPOSITORY TYPE CODE TESTS RESULT OUT OF RANGE REFERENCE UNITS LAB L3100.5600 >41 U/mL Normal COMP CH50 > 60 Result Comment: Performed at: - [facility] [id number] Assistant Finance Director: El Case PhD, Phone: [phone] Performed By: #### L3100.5600 #### [facility] (refer to report for specific site) refer to report for address and phone number [email or web address] Collected: 03/30/2018 Status: F Source: [place] 4:23 PM [facility] REPOSITORY TYPE CODE TESTS RESULT OUT OF RANGE REFERENCE UNITS LAB COMPQL Normal Abnormal Complmnt Def, Unable to Alert Qual assay. Specimen improperly collected/handl ed. Result Comment: RECEIVED AT INCORRECT TEMP, SAMPLRE NOT STABLE FOR TESTING [id number] BAS Account Credited Performed By: #### COMPD, CBC, C3COMP, C4COMP, CMP, GGT, RF, URIC, T4, TSH, WSR, EBVG, EBVM, IGA, IGG, LYMEWB, ANAS, CMVMAB, CMVG, EHRLIC #### [facility] [address] [place], [place] [address] #### BARTAB, BMICGM #### [facility] [address] [place] [address] [phone] CBC Collected: 03/30/2018 Status: F Source: [place] 4:23 PM [facility] REPOSITORY TYPE CODE TESTS RESULT OUT OF REFERENCE UNITS RANGE LAB WBC 3.70-11.00 k/uL WBC 8.66 LAB RBC 3.90-5.20 m/uL RBC 4.45 LAB HGB 11.5-15.5 g/dL Hemoglobin 12.0 LAB HCT 36.0-46.0 % Hematocrit 38.8 LAB MCV 80.0-100.0 fL MCV 87.2 LAB MCH 26.0-34.0 pG MCH 27.0 LAB MCHC 30.5-36.0 g/dL MCHC 30.9 LAB RDWCV 11.5-15.0 % RDW-CV 13.1 LAB PLTCT 150-400 k/uL Platelet Count 346 LAB MPV 9.0-12.7 fL MPV 9.8 LAB ABSNUC <0.01 k/uL Absolute nRBC <0.01 Performed By: #### COMPD, CBC, C3COMP, C4COMP, CMP, GGT, RF, URIC, T4, TSH, WSR, EBVG, EBVM, IGA, IGG, LYMEWB, ANAS, CMVMAB, CMVG, EHRLIC #### [place] [address] #### BARTAB, BMICGM #### [address] [id number] [phone] C3 COMPLEMENT Collected: 03/30/2018 Status: F Source: [place] 4:23 [facility] REPOSITORY TYPE CODE TESTS RESULT OUT OF REFERENCE UNITS RANGE LAB C3COMP 86-166 mg/dL C3 High Complement 172 Performed By: #### COMPD, CBC, C3COMP, C4COMP, CMP, GGT, RF, URIC, T4, TSH, WSR, EBVG, EBVM, IGA, IGG, LYMEWB, ANAS, CMVMAB, CMVG, EHRLIC #### [place] [address] [place] [address] #### BARTAB, BMICGM #### [facility] [address] [place] [address] [phone] C4 COMPLEMENT Collected: 03/30/2018 Status: F Source: [place] 4:23 PM [facility] REPOSITORY TYPE CODE TESTS RESULT OUT OF REFERENCE UNITS RANGE LAB C4COMP 13-46 mg/dL C4 Complement 21 Performed By: #### COMPD, CBC, C3COMP, C4COMP, CMP, GGT, RF, URIC, T4, TSH, WSR, EBVG, EBVM, IGA, IGG, LYMEWB, ANAS, CMVMAB, CMVG, EHRLIC #### [facility] [address] [place], [place] [address] #### BARTAB, BMICGM #### [facility] [address] [place] [address] [phone] COMP METABOLIC PANEL Collected: 03/30/2018 Status: F Source: [place] 4:23 PM [facility] REPOSITORY TYPE CODE TESTS RESULT OUT OF REFERENCE UNITS RANGE LAB TP 6.3-8.0 g/dL Protein, Total 7.2 LAB ALB 3.9-4.9 g/dL Albumin 4.2 LAB CA 8.5-10.2 mg/dL Calcium, Total 9.4 LAB TBIL 0.2-1.3 mg/dL Low Bilirubin, Total <0.2 LAB ALKP 34-123 U/L Alkaline Phosphatase 74 LAB AST 13-35 U/L AST 23 LAB GLU 74-99 mg/dL Glucose High 109 Result Comment: The [place] [employer] (ADA) provides guidance for cutoff values for fasting glucose and random glucose. The ADA defines fasting as no caloric intake for at least 8 hours. Fas ting plasma glucose results between 100 to 125 mg/dL indicate increased risk for diabetes (prediabetes). Fasting plasma glucose results greater than or equal to 126 mg/dL meet the criteria for diagnosis of diabetes. In the absence of unequivocal hyperglycemia, results should be confirmed by repeat testing. In a patient with classic symptoms of hyperglycemia or hyperglycemic crisis, random plasma glucose results greater than or equal to 200 mg/dL meet the criteria for diagnosis of diabetes. Reference: Standards of Medical Care in Diabetes 2016, [place] [employer]. Diabetes Care. 2016.39(Suppl 1). LAB BUN 7-21 mg/dL BUN 8 LAB CRET 0.58-0.96 mg/dL Creatinine 0.75 LAB NA 136-144 mmol/L Sodium 141 LAB K 3.7-5.1 mmol/L Potassium 3.8 LAB CL 97-105 mmol/L Chloride 104 LAB CO2 22-30 mmol/L CO2 22 LAB AGAP 9-18 mmol/L Anion Gap 15 LAB ALT 7-38 U/L ALT 20 LAB GFRAA eGFR- Amer. >60 LAB GFRNAA . eGFR-All Other Races >60 Result Comment: eGFR (Estimated GFR) Units of measure: mL/min/1.73 meters squared eGFR is derived from the reexpressed MDRD Study equation using the following parameters: serum creatinine, age, gender and race. The creatinine assay has been calibrated to be traceable to IDMS. An eGFR <60 mL/min/1.73m2 for >3 months is consistent with chronic kidney disease. Refer to KDOQI guidelines for clinical interpretation. In patients with unstable renal function, e.g. those with acute kidney injury, the eGFR may not accurately reflect actual GFR. Performed By: #### COMPD, CBC, C3COMP, C4COMP, CMP, GGT, RF, URIC, T4, TSH, WSR, EBVG, EBVM, IGA, IGG, LYMEWB, ANAS, CMVMAB, CMVG, EHRLIC #### [place] [address] [place] [address] #### BARTAB, BMICGM #### [facility] [address] [place] [address] [phone] GGT Collected: 03/30/2018 Status: F Source: [place] 4:23 [facility] REPOSITORY TYPE CODE TESTS RESULT OUT OF RANGE REFERENCE UNITS LAB GGT 6-46 U/L GGT 29 Performed By: #### COMPD, CBC, C3COMP, C4COMP, CMP, GGT, RF, URIC, T4, TSH, WSR, EBVG, EBVM, IGA, IGG, LYMEWB, ANAS, CMVMAB, CMVG, EHRLIC #### [facility] [address] [place] [address] #### BARTAB, BMICGM #### [facility] [address] [place] [address] [phone] RHEUMATOID FACTOR Collected: 03/30/2018 Status: F Source: [place] 4:23 PM [facility] REPOSITORY TYPE CODE TESTS RESULT OUT OF REFERENCE UNITS RANGE LAB RF <16 IU/mL Rheumatoid <10 Factor Performed By: #### COMPD, CBC, C3COMP, C4COMP, CMP, GGT, RF, URIC, T4, TSH, WSR, EBVG, EBVM, IGA, IGG, LYMEWB, ANAS, CMVMAB, CMVG, EHRLIC #### [place] [phone] #### BARTAB, BMICGM #### [facility] [address] [place] [address] [phone] URIC ACID Collected: 03/30/2018 Status: F Source: [place] 4:23 PM [facility] REPOSITORY TYPE CODE TESTS RESULT OUT OF RANGE REFERENCE UNITS LAB URIC 2.5-6.6 mg/dL Uric Acid 5.3 Performed By: #### COMPD, CBC, C3COMP, C4COMP, CMP, GGT, RF, URIC, T4, TSH, WSR, EBVG, EBVM, IGA, IGG, LYMEWB, ANAS, CMVMAB, CMVG, EHRLIC #### [place] [phone] #### BARTAB, BMICGM #### [place] [id number] [phone] T4 Collected: 03/30/2018 Status: F Source: [facility] 4:23 PM [facility] REPOSITORY TYPE CODE TESTS RESULT OUT OF RANGE REFERENCE UNITS LAB T4 5.5-10.2 ug/dL T4 6.2 Performed By: #### COMPD, CBC, C3COMP, C4COMP, CMP, GGT, RF, URIC, T4, TSH, WSR, EBVG, EBVM, IGA, IGG, LYMEWB, ANAS, CMVMAB, CMVG, EHRLIC #### [place] [address] #### BARTAB, BMICGM #### [place] [address] [phone] TSH Collected: 03/30/2018 Status: F Source: [place] 4:23 PM [facility] REPOSITORY TYPE CODE TESTS RESULT OUT OF RANGE REFERENCE UNITS LAB TSH 0.400-5.500 uU/mL TSH 0.801 Result Comment: If the patient is , TSH reference range varies by gestational period: First Trimester 0.100-2.500 uU/mL Second Trimester 0.200-3.000 uU/mL Third Trimester 0.300-3.000 uU/mL References: 1. Lucia, Ron M, Rangel ARIAS, et al. Management of Thyroid Dysfunction during and : An Endocrine Society Clinical Practice Guideline. J Clin Endocrinol Metab, 2012:97:1666-0341. 2. Chase MOREJON. Overview of thyroid disease in . UpToDate. 2016. Accessed on September 13, 2015. Performed By: #### COMPD, CBC, C3COMP, C4COMP, CMP, GGT, RF, URIC, T4, TSH, WSR, EBVG, EBVM, IGA, IGG, LYMEWB, ANAS, CMVMAB, CMVG, EHRLIC #### [facility] [address] [place] [address] #### BARTAB, BMICGM #### [facility] [address] [place] [address] [phone] SED RATE WESTERGREN Collected: 03/30/2018 Status: F Source: [place] 4:23 PM [facility] [facility] REPOSITORY TYPE CODE TESTS RESULT OUT OF REFERENCE UNITS RANGE LAB WSR 0-20 mm/hr Sed Rate Westergren 5 Performed By: #### COMPD, CBC, C3COMP, C4COMP, CMP, GGT, RF, URIC, T4, TSH, WSR, EBVG, EBVM, IGA, IGG, LYMEWB, ANAS, CMVMAB, CMVG, EHRLIC #### [facility] [place] [address] [address] #### BARTAB, BMICGM #### [facility] [address] [place] [address] [phone] EBV IGG ANTIBODY Collected: 03/30/2018 Status: F Source: [place] 4:23 PM [facility] REPOSITORY TYPE CODE TESTS RESULT OUT OF RANGE REFERENCE UNITS LAB EBVGQ Negative Abnormal Alert EBV Positive VCA IgG, Qual Result Comment: Specimen is positive for EBV VCA IgG antibody. A positive test result presumes a current or past infection with EBV. Other EBV serology assays such as the EBV VCA IgM should be performed to confirm serologic status, active acute, past or indeterminate infection for EBV-associated infectious mononucleosis. LAB EBVGX AI EBV VCA IgG >8.0 Result Comment: AI VALUES ARE INTERPRETED FOLLOWS: NEGATIVE SPECIMENS <=0.8 EQUIVOCAL SPECIMENS 0.9 TO 1.0 POSITIVE SPECIMENS >=1.1 Antibody index (AI) values reflect qualitative changes in antibody concentration that cannot be associated with clinical condition or disease state. Performed By: #### COMPD, CBC, C3COMP, C4COMP, CMP, GGT, RF, URIC, T4, TSH, WSR, EBVG, EBVM, IGA, IGG, LYMEWB, ANAS, CMVMAB, CMVG, EHRLIC #### [place] [address] #### BARTAB, BMICGM #### [address] [address] [phone] EBV IGM ANTIBODY Collected: 03/30/2018 Status: F Source: [place] 4:[address] [place] [address] REPOSITORY TYPE CODE TESTS RESULT OUT OF REFERENCE UNITS RANGE LAB EBVMQ Negative EBV Negative VCA IgM, Qual Result Comment: EBV VCA IgM antibodies are not detectable. LAB EBVMX AI EBV VCA IgM <0.2 Result Comment: AI VALUES ARE INTERPRETED FOLLOWS: NEGATIVE SPECIMENS <=0.8 EQUIVOCAL SPECIMENS 0.9 TO 1.0 POSITIVE SPECIMENS >=1.1 The magnitude of the reported IgM level cannot be correlated to an endpoint titer (or clinical status). Performed By: #### COMPD, CBC, C3COMP, C4COMP, CMP, GGT, RF, URIC, T4, TSH, WSR, EBVG, EBVM, IGA, IGG, LYMEWB, ANAS, CMVMAB, CMVG, EHRLIC #### [address] [address] [address] [place] [id number] #### BARTAB, BMICGM #### [address] [address] [phone] IGA Collected: 03/30/2018 Status: F Source: [place] 4:[address] [place] [address] REPOSITORY TYPE CODE TESTS RESULT OUT OF RANGE REFERENCE UNITS LAB IGA 78-391 mg/dL IgA 243 Performed By: #### COMPD, CBC, C3COMP, C4COMP, CMP, GGT, RF, URIC, T4, TSH, WSR, EBVG, EBVM, IGA, IGG, LYMEWB, ANAS, CMVMAB, CMVG, EHRLIC #### [place] [address] #### BARTAB, BMICGM #### [address] [address] [phone] IGG Collected: 03/30/2018 Status: F Source: [place] 4:23 PM [facility] REPOSITORY TYPE CODE TESTS RESULT OUT OF RANGE REFERENCE UNITS LAB IGG 717-1411 mg/dL IgG 1210 Performed By: #### COMPD, CBC, C3COMP, C4COMP, CMP, GGT, RF, URIC, T4, TSH, WSR, EBVG, EBVM, IGA, IGG, LYMEWB, ANAS, CMVMAB, CMVG, EHRLIC #### [place] [address] #### BARTAB, BMICGM #### [address] [address] [phone] LYME AB PANEL WBLOT Collected: 03/30/2018 Status: F Source: [place] 4:23 [facility] REPOSITORY TYPE CODE TESTS RESULT OUT OF REFERENCE UNITS RANGE LAB LYMEGG Negative Lyme Negative IgG WBlot LAB LYMGBD Lyme p23 IgG Bands Result Comment: CDC criteria for a positive Western blot are the presence of >= 5 bands for IgG. LAB LYMEMM Negative Negative Lyme IgM WBlot LAB LYMMBD p23 Lyme IgM Bands Result Comment: CDC criteria for a positive Western blot are the presence of >= 2 bands for IgM. LAB LYMITR No evidence of Lyme Interp antibodies to Borrelia burgdorferi. Performed By: #### COMPD, CBC, C3COMP, C4COMP, CMP, GGT, RF, URIC, T4, TSH, WSR, EBVG, EBVM, IGA, IGG, LYMEWB, ANAS, CMVMAB, CMVG, EHRLIC #### [facility] [address] [id number] #### BARTAB, BMICGM #### [facility] [address] [place] [address] [phone] IAN Collected: 03/30/2018 Status: F Source: [place] 4:23 PM [facility] REPOSITORY TYPE CODE TESTS RESULT OUT OF REFERENCE UNITS RANGE LAB ANAQL Negative IAN Negative by EIA, Qual LAB ANAEIA OD Ratio IAN 0.3 by EIA Result Comment: OD Ratio is interpreted as follows: Negative <1.0 Positive >=1.0 Performed By: #### COMPD, CBC, C3COMP, C4COMP, CMP, GGT, RF, URIC, T4, TSH, WSR, EBVG, EBVM, IGA, IGG, LYMEWB, ANAS, CMVMAB, CMVG, EHRLIC #### [place] [address] [address] [place] [address] #### [facility]AB[facility] #### [facility] [address] [place] [address] [phone] BARTONELLA AB PANEL Collected: 03/30/2018 Status: C Source: [place] 4:23 PM [facility] REPOSITORY TYPE CODE TESTS RESULT OUT OF REFERENCE UNITS RANGE LAB BHENSG B. henselae IgG <1:64 Ab Result Comment: (NOTE) INTERPRETIVE INFORMATION: Bartonella henselae Ab, IgG Less than 1:64 ....... Negative: No significant level of Bartonella henselae IgG antibody detected. 1:64 - 1:128 ......... Equivocal: Questionable presence of Bartonella henselae IgG antibody detected. Repeat testing in 10-14 days may be helpful. 1:256 or greater ..... Positive: Presence of IgG antibody to Bartonella henselae detected, suggestive of current or past infection. A low positive suggests past exposure or infection, while high positive results may indicate recent or current infection, but are inconclusive for diagnosis. Seroconversion between acute and convalescent sera is considered strong evidence of recent infection. The best evidence for infection is significant change on two appropriately timed specimens where both tests are done in the same laboratory at the same time. Test developed and characteristics determined by [employer] See Compliance Statement A: [employer] Corrected on 04/02 AT 1048: Previously reported as Incorrect test ordered. ORDERED [id number] Account Credited LAB BHENSM B. henselae IgM Ab < 1:16 Result Comment: (NOTE) INTERPRETIVE INFORMATION: Bartonella henselae Antibody, IgM Less than 1:16 ...... Negative: No significant level of Bartonella henselae IgM antibody detected. 1:16 or greater ..... Positive: Presence of IgM antibody to Bartonella henselae detected, suggestive of current or recent infection. The presence of IgM antibodies suggest recent infection, low levels of IgM antibodies may occasionally persist for more than 12 months post infection. Test developed and characteristics determined by [employer] See Compliance Statement A: [employer] Corrected on 04/02 AT 1048: Previously reported as Incorrect test ordered. ORDERED [id number] Account Credited LAB BQUING B. jewell IgG Ab <1:64 Result Comment: (NOTE) INTERPRETIVE INFORMATION: Bartonella jewell Antibody, IgG Less than 1:64 ....... Negative: No significant level of Bartonella jewell IgG antibody detected. 1:64 - 1:128 ........ Equivocal: Questionable presence of Bartonella jewell IgG antibody detected. Repeat testing in 10-14 days may be helpful. 1:256 or greater ..... Positive: Presence of IgG antibody to Bartonella jewell detected, suggestive of current or past infection. A low positive suggests past exposure or infection, while high positive results may indicate recent or current infection, but is inconclusive for diagnosis. Seroconversion between acute and convalescent sera is considered strong evidence of recent infection. The best evidence for infection is a significant change on two appropriately timed specimens where both tests are done in the same laboratory at the same time. Test developed and characteristics determined by [employer] See Compliance Statement A: [employer] Corrected on 04/02 AT 1048: Previously reported as Incorrect test ordered. ORDERED [id number] Account Credited LAB BQUINM B. jewell IgM Ab < 1:16 Result Comment: (NOTE) INTERPRETIVE INFORMATION: Bartonella jewell Ab, IgM Less than 1:16 ...... Negative-No significant level of Bartonella jewell IgM antibody detected. 1:16 or greater ..... Positive-Presence of IgM antibody to Bartonella jewell detected, suggestive of current or recent infection. The presence of IgM antibodies suggests recent infection. Low levels of IgM antibodies may occasionally persist for more than 12 months post-infection. Test developed and characteristics determined by [employer] See Compliance Statement A: [employer]/ Performed by [employer] [address] [place] [id number] [email or web address], Elvin Oates MD, Lab. Director Corrected on 04/02 AT 1048: Previously reported as Incorrect test ordered. ORDERED [id number] Account Credited Performed By: #### COMPD, CBC, C3COMP, C4COMP, CMP, GGT, RF, URIC, T4, TSH, WSR, EBVG, EBVM, IGA, IGG, LYMEWB, ANAS, CMVMAB, CMVG, EHRLIC #### [facility] [address] [place] [address] #### BARTAB, BMICGM #### [address] [address] [phone] CMV IGM ANTIBODY Collected: 03/30/2018 Status: F Source: [place] 4:23 PM [facility] REPOSITORY TYPE CODE TESTS RESULT OUT OF RANGE REFERENCE UNITS LAB CMVMR Negative Abnormal Alert CMV Positive IgM, Qual Result Comment: Presence of detectable CMV IgM antibodies indicates acute infection, reactivation, or persistent IgM production. LAB CMVM AU/mL CMV IgM Antibody 55.4 Result Comment: AU/mL values are interpreted as follows: Negative: <30.0 Equivocal: >=30.0 to <35.0 Positive: >=35.0 The magnitude of the measured result is not indicative of the amount of antibody present. Performed By: #### COMPD, CBC, C3COMP, C4COMP, CMP, GGT, RF, URIC, T4, TSH, WSR, EBVG, EBVM, IGA, IGG, LYMEWB, ANAS, CMVMAB, CMVG, EHRLIC #### [facility] [address] [id number] #### BARTAB, BMICGM #### [address] [address] [phone] CMV IGG ANTIBODY Collected: 03/30/2018 Status: F Source: [place] 4:23 PM [facility] REPOSITORY TYPE CODE TESTS RESULT OUT OF RANGE REFERENCE UNITS LAB CMVGQL Negative Abnormal Alert CMV Positive IgG Qual Result Comment: Presence of detectable CMV IgG antibodies indicates either recent or past exposure to CMV. LAB CMVGA U/mL CMV IgG Antibody >10.00 Result Comment: U/mL values are interpreted as follows: Negative: <0.60 Equivocal: >=0.60 to <0.70 Positive: >=0.70 The magnitude of the measured result above the cutoff is not indicative of the amount of antibody present. Performed By: #### COMPD, CBC, C3COMP, C4COMP, CMP, GGT, RF, URIC, T4, TSH, WSR, EBVG, EBVM, IGA, IGG, LYMEWB, ANAS, CMVMAB, CMVG, EHRLIC #### [place] [address] [place] [id number] #### BARTAB, BMICGM #### [address] [address] [phone] BABESIA CARLOS IGG/IGM Collected: 03/30/2018 Status: F Source: [place] 4:23 PM [facility] REPOSITORY TYPE CODE TESTS RESULT OUT OF REFERENCE UNITS RANGE LAB BMICG < 1:16 Babesia < 1:16 Microti IgG Result Comment: (NOTE) INTERPRETIVE INFORMATION: Babesia microti Antibody, IgG Less than 1:16 ........ Negative - No significant level of detectable Babesia IgG antibodies. 1:16 .................. Equivocal - Repeat testing in 10-14 days may be helpful. Greater than 1:16 ..... Positive - IgG antibodies to Babesia detected which may indicate a current or previous infection. Test developed and characteristics determined by [employer] See Compliance Statement A: [employer]/CS LAB BMICM <1:20 Babesia Microti IgM <1:20 Result Comment: (NOTE) INTERPRETIVE INFORMATION: Babesia microti Antibody, IgM Less than 1:20 ........ Negative - No significant level of detectable Babesia IgM antibodies. 1:20 .................. Equivocal - Repeat testing in 10-14 days may be helpful. Greater than 1:20 ..... Positive - IgM antibodies to Babesia detected which may indicate a current or recent infection. Test developed and characteristics determined by [employer] See Compliance Statement A: [employer]/ Performed by [employer] [address] [place] [id number] [email or web address], Elvin Oates MD, Lab. Director Performed By: #### COMPD, CBC, C3COMP, C4COMP, CMP, GGT, RF, URIC, T4, TSH, WSR, EBVG, EBVM, IGA, IGG, LYMEWB, ANAS, CMVMAB, CMVG, EHRLIC #### [facility] [address] [place] [id number] #### BARTAB, BMICGM #### [facility] [address] [place] [address] [phone] EHRLICHIOSIS ABS Collected: 03/30/2018 Status: F Source: [place] 4:23 PM [facility] REPOSITORY TYPE CODE TESTS RESULT OUT OF REFERENCE UNITS RANGE LAB APHAGG A phagocytophila IgG <1:64 LAB APHAGM A phagocytophila IgM <1:20 LAB APHAGI A Phago Interp _ Result Comment: (NOTE) ANTIBODY NOT DETECTED REFERENCE RANGE: IgG <1:64 IgM <1:20 Anaplasma phagocytophilum is the tick-borne agent causing Human Granulocytic Ehrlichiosis (HGE). HGE is distinct and separate from Human Monocytic Ehrlichiosis (HME), caused by Ehrlichia chaffeensis. Serologic cross-reactivity between A. phagocytophilum and E. Chaffeensis is minimal (5-15%). This test was developed and its analytical performance characteristics have been determined by [facility]. It has not been cleared or approved by FDA. This assay has been validated pursuant to the CLIA regulations and is used for clinical purposes. Performed at [facility], [address] [place] [address], Noble Santiago MD, Director, [facility] [id number] LAB ECHAFG E chaffeensis IgG <1:64 LAB ECHAFM E chaffeensis IgM <1:20 LAB ECHAFI E Chaffeensis Interp _ Result Comment: (NOTE) ANTIBODY NOT DETECTED REFERENCE RANGE: IgG <1:64 IgM <1:20 Ehrlichia Chaffeensis has been identified as the Causative agent of Human Monocytic Ehrlichiosis (HME). Infected individuals produce specific antibodies to E. Chaffeensis that can be detected by an immunofluorescent antibody (IFA)test. Single IgG IFA titers of 1:64 or greater indicate exposure to E. Chaffeensis. A four-fold rise in IgG titers between acute and convalescent samples and/or the presenceof IgM antibody against E. Chaffeensis suggest recent or current infection. This test was developed and its analytical performance characteristics have been determined by [facility]. It has not been cleared or approved by FDA. This assay has been validated pursuant to the CLIA regulations and is used for clinical purposes. Performed at [facility], [address] [place] [address], Noble Santiago MD, Director, [facility] [id number] LAB APHCOM A Phago Test Not Comment Indicated LAB ECHCOM E Chaffeen Test Not Comment Indicated Performed By: #### COMPD, CBC, C3COMP, C4COMP, CMP, GGT, RF, URIC, T4, TSH, WSR, EBVG, EBVM, IGA, IGG, LYMEWB, ANAS, CMVMAB, CMVG, EHRLIC #### [facility] [address] [place], [place] [address] #### BARTAB, BMICGM #### [facility] [address] [place] [address] [phone] BARTONELLA PCR Collected: 03/30/2018 Status: F Source: [place] 4:23 PM [facility] REPOSITORY TYPE CODE TESTS RESULT OUT OF REFERENCE UNITS RANGE LAB [facility] Bartonella edta plasma Source LAB CRISTINA Bartonella PCR NOT DETECTED Rslt Result Comment: (NOTE) NOT DETECTED - A negative result does not rule out the presence of PCR inhibitors in the patient specimen or assay specific nucleic acid in concentrations below the level of detection by the assay. INTERPRETIVE INFORMATION: Bartonella Species Detection by PCR Test developed and characteristics determined by [employer] See Compliance Statement B: [employer]/ Performed by [employer] [address] [place] [id number] [email or web address], Elvin Oates MD, Lab. Director Performed By: #### BARPCR #### [facility] [address] [place], [place] [address] IASmall [employer] [address] [address] [phone] LEAD EKG PERFORMED Observed: 03/15/2018 Status: F Source: [facility] 11:28 AM [address] [place] [address] 12 Lead EKG performed by [facility] 03/15/18 112 MR#: [id number] Acct: [id number] Name: KAYA ARCE Rep #: [id number] : 1985 32 From: Petar UGALDE Attending Dr: Emmanuel Wong MD Status: DEP AMB Ordering Dr: Petar Estes Date: 03/15/18 Location: [facility] Sex: F C Admitted: [facility]/12 Lead EKG performed by [facility] ECG Report Interpretation Sinus Rhythm - occasional PAC Electronically signed on 03/21/2018 at 09:02 by Emmanuel Wong Software Version [id number] 03/21/18 0904 Date Petar UGALDE CC: Rudy Curran DO Date Dictated: 03/15/181126 Date Transcribed: 03/15/18 1127 Profiler Hand: LIZBETH Signed CBC W/DIFF, AUTOMATED Collected: 03/09/2018 Status: F Source: [place] 3:58 PM [facility] REPOSITORY TYPE CODE TESTS RESULT OUT OF RANGE REFERENCE UNITS LAB L100.1000 4.4-11.0 K/mm3 Normal WBC 8.3 LAB L100.1200 4.2-5.4 M/mm3 Normal RBC 4.80 LAB L100.1300 12.0-15.0 g/dl Normal HGB 13.2 LAB L100.1400 37-47 % Normal HCT 40.6 LAB L100.1500 81-99 fL Normal MCV 84.6 LAB L100.1600 27.0-32.0 pg Normal MCH 27.5 LAB L100.1700 32-36 g/gl Normal MCHC 32.5 LAB L100.1810 11.6-14.6 % Normal RDW CV 12.8 LAB L100.1820 35.1-43.9 fl Normal RDW SD 39.1 LAB L100.1900 150-450 K/mm3 Normal PLT 313 LAB L100.2000 6.2-12.0 fl Normal MPV 9.3 LAB L100.2100 47-70 % Normal NEUT% 53.0 LAB L100.2200 19-41 % Normal LY% 39.1 LAB L100.2300 0-10 % Normal MONO% 5.4 LAB L100.2400 0-5 % Normal EO% 2.2 LAB L100.2500 0-1 % Normal BASO% 0.2 LAB L100.2550 0.0-0.9 % Normal IM GRAN % 0.100 Result Comment: IG% - Immature Granulocytes (promyelocytes, myelocytes and metamyelocytes) > 1% indicates that a LEFT SHIFT is Present. LAB L100.2620 2.0-7.7 X10 3/uL Normal Absolute Neut 4.4 LAB L100.2720 0.83-4.51 X10 3/ul Normal Absolute Lymph 3.25 Performed By: #### L100.0100 #### [facility] [address] [place], [address] VITAMIN B12 Collected: 03/09/2018 Status: F Source: [place] 3:58 PM [facility] REPOSITORY TYPE CODE TESTS RESULT OUT OF RANGE REFERENCE UNITS LAB L503.0105 211-911 pg/mL Normal Vitamin B12 695 Performed By: #### L503.0105 #### [facility] [address] [place], [address] IRON Collected: 03/09/2018 Status: F Source: [place] 3:58 PM [facility] REPOSITORY Order Comment: Is Patient Taking Vitamins or Folic Acid Supplements? N TYPE CODE TESTS RESULT OUT OF RANGE REFERENCE UNITS LAB L503.6150 50-170 ug/dL Normal IRON 58 Performed By: #### L503.6150, L503.6550, L506.0250 #### [facility] [address] [place], [address] FERRITIN Collected: 03/09/2018 Status: F Source: [place] 3:58 PM [facility] REPOSITORY Order Comment: Is Patient Taking Vitamins or Folic Acid Supplements? N TYPE CODE TESTS RESULT OUT OF RANGE REFERENCE UNITS LAB L503.6550 8-252 ng/mL Normal FERRITIN 30 Performed By: #### L503.6150, L503.6550, L506.0250 #### [facility] [address] [place], [address] FOLATES, (FOLIC ACID) Collected: 03/09/2018 Status: F Source: [place] 3:58 PM [facility] REPOSITORY Order Comment: Is Patient Taking Vitamins or Folic Acid Supplements? N TYPE CODE TESTS RESULT OUT OF RANGE REFERENCE UNITS LAB L506.0250 3.1-55.4 ng/mL Normal FOLATES 42.90 Result Comment: Slight Hemolysis, Result may be falsely increased. Performed By: #### L503.6150, L503.6550, L506.0250 #### [facility] [address] [place], [address] ANTINUCLEAR ANTIBODIES Collected: 03/09/2018 Status: F Source: [place] DIRECT 3:58 PM [facility] REPOSITORY TYPE CODE TESTS RESULT OUT OF RANGE REFERENCE UNITS LAB L3100.5475 Negative Normal Negative IAN-DIRECT Result Comment: Performed at: [address] [id number] Assistant Finance Director: El Case PhD, Phone: [phone] Performed By: #### L3100.5475 #### [facility] (refer to report for specific site) refer to report for address and phone number PROTEIN ELECTROPH, S Collected: 03/09/2018 Status: F Source: [place] 3:58 PM [facility] REPOSITORY TYPE CODE TESTS RESULT OUT OF RANGE REFERENCE UNITS LAB L3100.3500 6.0-8.5 g/dL Normal PROTEIN,TOTAL 7.2 LAB L3100.3600 2.9-4.4 g/dL Normal ALBUMIN 3.5 LAB L3100.3700 0.0-0.4 g/dL Normal ALPHA-1 GLOBUL 0.2 LAB L3100.3800 0.4-1.0 g/dL Normal ALPHA-2 GLOBUL 0.8 LAB L3100.3900 0.7-1.3 g/dL Normal BETA GLOBULIN 1.3 LAB L3100.4000 0.4-1.8 g/dL Normal GAMMA GLOBULIN 1.4 LAB L3100.4110 Normal M-SPIKE Result Comment: Not Observed LAB L3100.4200 2.2-3.9 g/dL GLOBULIN, TOTAL Normal 3.7 LAB L3100.4300 0.7-1.7 A/G RATIO Normal 0.9 LAB L3100.4320 . INTERPRETATION Normal Comment Result Comment: Protein electrophoresis scan will follow via computer, mail, or thread cutter tender delivery. LAB L3100.4340 . Normal NOTE: Comment Result Comment: The SPE pattern appears essentially unremarkable. Evidence of monoclonal protein is not apparent. Performed By: #### L3100.3450, L3100.6450 #### [facility] (refer to report for specific site) refer to report for address and phone number LEAD, BLOOD ADULT Collected: 03/09/2018 Status: F Source: [place] 16+YRS 3:58 PM [facility] REPOSITORY TYPE CODE TESTS RESULT OUT OF RANGE REFERENCE UNITS LAB L3100.6450 Normal LEAD *Form Result Comment: None Detected Analysis by inductively coupled plasma/mass spectrometry (ICP/MS) Environmental Exposure: WHO Recommendation <20 Occupational Exposure: OSHA Lead Std 40 DELILAH 30 Detection Limit = 1 This test was developed and its performance characteristics determined by [facility]. It has not been cleared or approved by the Food and Drug Administration. Performed at: [facility] [id number] Assistant Finance Director: El Case PhD, Phone: [phone] Performed By: #### L3100.2600, L3100.2795 #### [facility] (refer to report for specific site) refer to report for address and phone number PROTEIN ELECTRO.UR-RANDOM Collected: Status: F Source: [place] 03/09/2018 3:58 PM [facility] REPOSITORY TYPE CODE TESTS RESULT OUT OF RANGE REFERENCE UNITS LAB L3600.4100 Not Estab. mg/dL Normal 13.7 PROTEIN,UR LAB L3600.4200 . % Normal 30.6 ALBUMIN,UR LAB L3600.4300 . % Normal 4.5 EEVSP-5-EKRX ,U LAB L3600.4400 . % Normal 15.3 YPKPK-3-VAKO ,U LAB L3600.4500 . % Normal BETA 37.2 GLOB,U LAB L3600.4600 . % Normal GAMMA 12.4 GLOB,U LAB L3600.4720 Normal M-SPIKE,U Result Comment: Not Observed LAB L3600.4800 . Normal NOTE Comment Result Comment: Protein electrophoresis scan will follow via computer, mail, or thread cutter tender delivery. Performed at: [facility] [address] [id number] Assistant Finance Director: El Case PhD, Phone: [phone] Performed By: #### L3600.4000 #### [facility] (refer to report for specific site) refer to report for address and phone number CARDIOLOGY VISIT Observed: 02/10/2018 Status: F Source: [place] REPORT 6:40 PM [facility] REPOSITORY [facility] [address] [place] [address] OFFICE VISIT Date of Service: 02/10/18 MR#: [id number] Acct: [id number] Name: KAYA ARCE Alexandro Rep #: [id number] : 1985 Provider: Emmanuel Wong MD Age/Sex: 32/F Location: [facility] Status: Signed HPI HPI Chief Complaint: Syncope Details: KAYA ARCE, is a 32 F who presents to the office today for outpatient cardiovascular consultation for concerns of bradycardia, tachycardia/SVT, and syncope. She has previously been followed by [facility] cardiology in [place], [place]. She states that over time she has undergone noninvasive studies. She has been treated with beta-edson therapy. However she is now off beta-edson therapy because of concerns of the development of symptomatic bradycardia in addition to her previous history of tachycardia/SVT, and a recent history of syncope thought secondary to orthostatic hypotension. She states for a long time now she has been diagnosed with SVT. She is unsure whether it has ever been clearly identified. She states that she has never been referred to electrophysiology for consideration for EPS/RFA. She was treated with beta-blockers. However over time she states there were concerns about bradycardia secondary to her beta-blockers. Thus this had to be discontinued. She had an attempted an alternative beta-edson however there was still concerns. She was hospitalized in December for her aforementioned concerns. She states when she was to be discharged she had a syncopal event. There were concerns this was orthostatic mediated. Based upon outpatient medical records it appears that she has had histories of palpitations and vasovagal syncope. It appears she has undergone evaluation with a 30-day event monitor in the past which based upon a report stated that she had sinus rhythm with a heart rate between 46 and 137 bpm with occasional PACs and PVCs with no significant pauses and symptoms associated with palpitations and rapid heart rates and flutters with concerns of the aforementioned findings and sinus tachycardia. She also has undergone evaluation in December of this year with a transthoracic echocardiogram and an exercise tolerance test. The results are as noted below. She states based upon her concerns and symptoms she is now been referred for additional cardiovascular evaluation. She denies any classic chest discomfort for angina pectoris. She has had no obvious issues of CHF or pulmonary edema. There has been no recurrent syncopal events since she left the hospital. She states she was diagnosed with Lyme disease approximately 10 years ago. She had a delayed diagnosis. She was treated medically with multiple weeks of antibiotic therapy. She notes since that diagnosis she has had a variety of strange complaints and physical examination findings, etc. Intake Vital Signs02/10/18 Blood Pressure 108/78 02/10/18 Blood Pressure Location Lt brachial 02/10/18 Blood Pressure Position Standing Intake Visit Reasons: SVT/Ref. Dr. Curran Allergies acetaminophen [From Vicodin] Allergy (Severe, Verified 02/10/18 14:22) Itching cyclobenzaprine [From Flexeril] Allergy (Severe, Verified 02/10/18 14:22) Mental status change hydrocodone [From Vicodin] Allergy (Severe, Verified 02/10/18 14:22) Itching latex Allergy (Mild, Verified 02/10/18 14:22) Unknown cephalexin monohydrate [From Keflex] Allergy (Verified 02/10/18 14:22) Anaphylaxis eucalyptus Adverse Reaction (Severe, Verified 02/10/18 14:22) tachycardia, close airway NSAIDS (Non-Steroidal Anti-Inflamma Adverse Reaction (Severe, Verified 02/10/18 14:22) GI upset tizanidine Adverse Reaction (Severe, Verified 02/10/18 14:22) Low HR doxycycline Adverse Reaction (Verified 02/10/18 14:22) Diarrhea Medications multivitamin tablet 1 tab PO DAILY 12/13/17 [History Confirmed 02/10/18] Nifedipine, Micronized [Nifedipine Micronized] 1 applicatio TOPICAL PRN PRN 01/13/18 [History Confirmed 02/10/18] albuterol sulfate HFA 90 mcg/actuation aerosol inhaler 1 puff INHALATION Q6H PRN 02/08/18 [History Confirmed 02/10/18] bupropion HCl XL 150 mg 24 hr tablet, extended release 150 mg PO QAM 02/10/18 [History Confirmed 02/10/18] cetirizine 10 mg tablet 10 mg PO QDAY PRN 02/10/18 [History Confirmed 02/10/18] omeprazole 20 mg capsule,delayed release 20 mg PO DAILY PRN 02/10/18 [History Confirmed 02/10/18] potassium chloride ER 20 mEq tablet,extended release 40 meq PO DAILY PRN tab 02/10/18 [History Confirmed 02/10/18] [facility] Medical History Sinus tachycardia (Acute) Symptomatic bradycardia (Acute) PCOS (polycystic ovarian syndrome) (Chronic) Ankylosing spondylitis (Chronic) Exercise-induced asthma (Chronic) Mitral regurgitation (Chronic) Endometriosis (Acute) Tachycardia (Inactive) Surgical History History of (Resolved) History of hernia repair (Resolved) Hx of removal of ovary (Resolved) Family History Mother Heart disease Father Heart disease Diabetes Social History Smoking Status: Never smoker alcohol intake: never substance use type: does not use caffeine: Yes what type of physical activity do you participate in: walking frequency: 5-6 times per week seatbelt use: always do you feel safe at home: Yes additional social history: Single- Currently unemployed ROS Const Const: Positive for fatigue (continues); negative for weakness, weight gain, weight loss, frequent falls or excessive sweating Eyes Eyes: Negative for change in vision, blurry vision or transient loss of vision ENT ENT: Positive for dizziness (occasional w/palps, when sitting down or standing up) and balance problems (occasional unsteadiness, couple of falls) Cardio Chest Pain: No Palpitations: Yes (daily) feels like its: irregular (quivering) Edema: Bilateral (occasional pedals) Muscle aches with walking: Bilateral (calf cramping) Resp Respiratory: Positive for SOB with activity (new); negative for SOB at rest GI GI: Negative vomiting or vomiting blood/hematemesis : Negative for hematuria Musc Musc: Positive for balance problems (occasional unsteadiness, couple of falls); negative for muscle aches/ myalgia, muscle weakness or joint pain Skin Skin: Negative non-healing lesions or rash Neuro Neuro: Positive for dizziness (occasional w/palps, when sitting down or standing up); negative for weakness, blurry vision, lightheadedness, frequent falls or orthostatic symptoms Marcus Hematologic/Lymphatic: Negative for easy bleeding Endo Endo: Positive for fatigue (continues); negative for excessive sweating Psych Psych: Negative for anxiety or depression Allergy Allergy/Immunology: Negative for hives, Negative for rash Cardiology Exam Const Appearance: cooperative, healthy appearing, comfortable, no acute distress, well developed and well groomed Nutritional Appearance: overweight Orientation: alert, awake and oriented x3 Head Head: normal to inspection, normocephalic and atraumatic Ears: hearing grossly normal bilaterally Nose: external nose normal Face and Sinus: face symmetric Mouth: oral mucosae normal Teeth and gingiva: dentition normal Eyes Eyelids: eyelids normal Conjunctivae: conjunctivae normal Pupils: PERRL EOM: EOM intact bilaterally Neck Neck: normal visual inspection and full ROM Carotids: normal carotid upstroke Chest Chest inspection: normal inspection of the chest and symmetric chest movement Auscultation: Bilateral: Clear to Auscultation Cardio Palpation: normal PMI Rate: regular rate Rhythm: regular rhythm Heart sounds: S1 normal and S2 normal GI GI: normal to inspection, bowel sounds present and soft Neuro General: alert, awake, oriented x3, moves all extremities, gait normal, no focal sensory deficit and no focal motor deficits Skin Skin: rashes noted Extremities Pulses: Normal: Right Radial Pulse, Left Radial Pulse Lower Extremity Edema: None: Bilateral Psych Psychological: normal affect Supplemental Info Transthoracic echocardiogram: 01/13/2018 Interpretation Summary Normal LV size. Left ventricular systolic function is normal. The estimated ejection fraction is 60 %. No evidence for diastolic dysfunction. Bubble contrast study negative for right to left interatrial shunt. Stress test: 01/14/2018 The patient exercised on a Severino protocol for 8 minutes completing Stage II and 2 minutes of Stage III achieving a peak heart rate of 179 bpm (96 % predicted maximal heart rate) with a peak blood pressure 138/50 mmHg and a peak MET capacity of 9 METs. The baseline ECG demonstrated sinus arrhythmia. The peak exercise ECG demonstrated no obvious ECG changes. The cardiac rhythm pretest appeared compatible with sinus arrhythmia. The functional capacity was considered good. There was no complaint of chest discomfort during exercise or recovery. The examination was discontinued secondary to dyspnea. Impression: 1. Technically adequate (percent predicted maximal heart rate greater than 85%) exercise tolerance test 2. Peak exercise ECG no obvious ECG changes 3. The cardiac rhythm pretest appeared compatible with sinus arrhythmia 4. Nuclear images pending Myocardial perfusion imaging study: Technique: The patient was injected with 11.9 mCi of technetium 99m Cardiolite and subsequently rest SPECT Cardiolite nuclear imaging was obtained in the horizontal long, vertical long, and short axis views. The patient exercised on a Severino protocol for 8 minutes completing Stage II and 2 minutes of Stage III achieving a peak heart rate of 179 bpm (96 % predicted maximal heart rate) with a peak blood pressure 138/50 mmHg and a peak MET capacity of 9 METs. The patient was injected with 33.2 mCi of technetium 99m Cardiolite and subsequently stress SPECT Cardiolite nuclear imaging was obtained in the horizontal long, vertical long, and short axis views. A gated Cardiolite study at peak stress was obtained. Interpretation: Rest and stress SPECT Cardiolite nuclear imaging status post realignment, normalization, and attenuation correction, demonstrates the appearance of relative uniform tracer uptake and myocardial perfusion appearing within normal limits. There is end systolic thickening and brightening. The gated Cardiolite study demonstrates myocardial thickening and inward wall motion. The reported LVEF is 81 %. Impression: 1. Rest and stress SPECT Cardiolite nuclear imaging demonstrate relative uniform tracer uptake and myocardial perfusion appearing within normal limits. 2. The gated Cardiolite study reports an LVEF of 81 %. Assessment AND Plan 1. Sinus tachycardia R00.0 Plan The patient has a history of sinus tachycardia. She reportedly has a history of SVT. There is no definitive documentation of that available at this time for review. She states she has never been referred to electrophysiology for evaluation care of such a diagnosis. At the moment she is without any rate limiting therapy based on concerns of the development of symptomatic bradycardia. At the present time she did have an ECG in the office. She was noted to have sinus rhythm. She had no acute ECG changes. It was felt reasonable based upon her concerns of her underlying symptoms, events, and objective findings with both sinus bradycardia and sinus tachycardia that she have further ambulatory monitoring to try and correlate her symptoms with underlying cardiac dysrhythmias or conduction system abnormalities. As she has already undergone the aforementioned evaluation this would include an implantable loop recorder. She was agreeable to this approach. In the interim she will remain without her beta-edson therapy. Orders Orders: 2. Symptomatic bradycardia R00.1 Plan Again the patient has concerns of underlying sinus bradycardia thought brought out by her beta-edson therapy. Thus she is remaining off of her beta- edson therapy at this time. She will undergo evaluation and care as noted above. Orders Orders: 3. Orthostatic hypotension I95.1 Plan She reportedly has had orthostatic hypotension leading to a syncopal event. She has been evaluated for this at [facility]. She was encouraged to maintain adequate hydration, monitor her positional changes, avoid situations that may bring out her events, and report any other concerning changes to her physicians. 4. Syncope R55 Plan Again she has had syncope. Based upon her report there is been concerns of orthostatic hypotension. At the same time based upon her previous cardiovascular records there is concerns of vasovagal mediated syncope. At the present time she will continue with fluid hydration. She will monitor positional changes. She will avoid situations that may prompt her events. She may need additional support with support stockings. It was not thought she needed additional medical management at this time. If over time she continues with such events and demonstrates a consistently low blood pressure that she may need additional support such as medical therapy with Florinef or Midodrine. Orders Orders: Plan Detail Other Orders Orders: Additional Comments Thank you for allowing me to participate in the care of your patient. Please don't hesitate to call if any issues arise. This note was generated using a voice recognition system and there may be incorrect words, spelling or punctuation that were not noted when reviewing the office note prior to saving. Follow Up 3 Months (PFM) Coding Level of Care Code Off vis,new,level 4 Diagnoses Sinus tachycardia R00.0 Symptomatic bradycardia R00.1 Orthostatic hypotension I95.1 Syncope R55 Coding Level of Care Code Off vis,new,level 4 Diagnoses Sinus tachycardia R00.0 Symptomatic bradycardia R00.1 Orthostatic hypotension I95.1 Syncope R55 02/10/18 1840 <Electronically signed by Emmanuel Wong MD> Date Emmanuel Wong MD Cosigner Signature: Date (if applicable) CC: Rudy Curran DO 12 LEAD EKG PERFORMED Observed: 02/10/2018 Status: F Source: [facility] 2:19 PM [facility] REPOSITORY [facility] [address] [place] [address] 12 Lead EKG performed by [facility] 02/10/18 1418 MR#: [id number] Acct: [id number] Name: KAYA ARCE Alexandro Rep #: [id number] : 1985 32 From: Emmanuel Wong MD Attending Dr: Emmanuel Wong MD Status: DEP [facility] Ordering Dr: Emmanuel Wong MD Date: 02/10/18 Location: [facility] Sex: F C Admitted: [facility]/12 Lead EKG performed by [facility] ECG Report Interpretation Sinus RhythmElectronically signed on 02/11/2018 at 13:46 by Emmanuel Wong Software Version [id number] 02/11/18 1350 Date Emmanuel Wong MD CC: Rudy Curran DO Date Dictated: 02/10/181417 Date Transcribed: 02/10/181417 Profiler Hand: PM Signed NEPHROLOGY NURSE OFFICE VISIT Observed: 01/22/2018 Status: F Source: [facility] REPORT 5:59 AM [facility] [place] [address] [place] [address] OFFICE VISIT Date of Service: 01/19/18 MR#: [id number] Acct: [id number] Name: KAYA ARCE Rep #: [id number] : 1985 Provider: Maci Garcia MD Age/Sex: 32/F Location: [facility] Status: Signed Intake Vital Signs01/19/18 Height 5 ft 2 in 01/19/18 Weight: 180 lb 01/19/18 Body Mass Index (BMI) 32.9 Intake Visit Reasons: F/U on heavy menses/Given Provera Floor Cashier Required: No Is patient in pain?: No Allergies eucalyptus Allergy (Mild, Verified 01/19/18 13:32) unknown latex Allergy (Mild, Verified 01/19/18 13:32) Unknown cephalexin monohydrate [From Keflex] Allergy (Verified 01/19/18 13:32) Anaphylaxis doxycycline Adverse Reaction (Verified 01/19/18 13:32) Diarrhea Medications Omeprazole [Prilosec] 20 mg PO DAILY 11/30/16 [History Confirmed 01/19/18] cetirizine 10 mg tablet 10 mg PO QDAY 06/28/17 [History Confirmed 01/19/18] multivitamin tablet 1 tab PO DAILY 12/13/17 [History Confirmed 01/19/18] Potassium Chloride [Klor-Con] 40 meq PO DAILY 01/12/18 [History Confirmed 01/19/18] Lidocaine 2% Jelly [Xylocaine 2% Jelly] 1 applicatio TOPICAL PRN PRN 01/13/18 [History Confirmed 01/19/18] Nifedipine, Micronized [Nifedipine Micronized] 1 applicatio TOPICAL PRN PRN 01/13/18 [History Confirmed 01/19/18] Alprazolam [Xanax] 0.25 mg PO TID PRN PRN #7 tab 01/15/18 [Rx Confirmed 01/19/18] Pindolol [Pindolol (Beta Edson)] 2.5 mg PO DAILY #30 tab 01/15/18 [Rx Confirmed 01/19/18] Is last menstrual period known: No Post menopausal: No Patient : No : No PFSH Medical History PCOS (polycystic ovarian syndrome) (Chronic) Ankylosing spondylitis (Chronic) Exercise-induced asthma (Chronic) Mitral regurgitation (Chronic) Endometriosis (Acute) Surgical History History of (Acute) History of hernia repair (Acute) Hx of removal of ovary (Acute) Family History Mother Heart disease Father Heart disease Diabetes Social History Smoking Status: Never smoker alcohol intake: never substance use type: does not use caffeine: Yes what type of physical activity do you participate in: walking frequency: 5-6 times per week seatbelt use: always do you feel safe at home: Yes additional social history: Single- Currently unemployed HPI F/U on heavy menses/Given Provera: Details: KAYA ARCE is a 32 year old who presents for fu of endometriosis and abnormal periods. she has had persistent heavy bleeding just this past cycle but other than that she has had more regular menses. she is starting to have improvement in her skin. she is going to continue the cyclic provera Female Reproductive History Cycle Length: >35 Questions: Metorrhagia: No, Sexually active: Yes Pregancy History 1 Elective abortions Hx Para 1 Spontaneous abortions Past Pregnancies Del. DatNamjailyn GA/WeeksOutcome Route Bth [facility] LocaProviderFOB e ht en th ia tn Unknown Casanova-2 004 ROS Const Constitutional: Reports system reviewed and no additional complaints, except as docu GI GI: Reports as per HPI : Reports system reviewed and no additional complaints, except as docu Assessment AND Plan Problems 1. 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 Cyst of ovary, unspecified laterality N83.209 Plan reviewed and patient doing better, stable. continue expectant managment Coding Level of Care Code Off vis,est,level 3 Diagnoses Endometriosis N80.9 Cyst of ovary, unspecified laterality N83.209 Laterality: unspecified laterality 01/22/18 0559 <Electronically signed by Maci Garcia MD> Date Maci Garcia MD Cosigner Signature: Date (if applicable) CC: 12 LEAD ELECTROCARDIOGRAM Observed: 01/21/2018 Status: F Source: [facility] 1:09 PM [facility] REPOSITORY [facility] Cardiovascular Services [address] [address] 12 Lead EKG 01/18/18 1604 MR#: [id number] Acct: [id number] Name: KAYA ARCE Alexandro Rep #: [id number] : 1985 32 From: Emmanuel Wong MD Attending Dr: Status: DEP ER Ordering Dr: Israel Madrid MD Date: 01/18/18 Location: ED Sex: F C Admitted: Test Reason : CP/PALPS Blood Pressure : / mmHG Vent. Rate : 084 BPM Atrial Rate : 084 BPM P-R Int : 126 ms QRS Dur : 088 ms QT Int : 372 ms P-R-T Axes : 062 062 059 degrees QTc Int : 439 ms Sinus rhythm with Premature supraventricular complexes Otherwise normal ECG Confirmed by EMMANUEL WONG MD ([id number]), fashion editor VENKAT PRADO ([id number]) on 01/21/2018 1:08:57 PM Referred By: NOHEMY Confirmed By:EMMANUEL WONG MD 01/21/18 1308 Date Emmanuel Wong MD CC: Rudy Curran DO; Israel Madrid MD Signed 12 LEAD ELECTROCARDIOGRAM Observed: 01/19/2018 Status: F Source: [facility] 2:18 PM [facility] REPOSITORY [facility] Cardiovascular Services [address] [place] [address] 12 Lead EKG 01/14/18 0407 MR#: [id number] Acct: [id number] Name: KAYA ARCE Rep #: [id number] : 1985 32 From: Emmanuel Wong MD Attending Dr: Markos Pate MD Status: DIS KARENA Ordering Dr: Humberto Aguilar MD Date: 01/14/18 Location: [facility] Sex: F C Admitted: 01/12/18 Test Reason : AM EKG Blood Pressure : / mmHG Vent. Rate : 060 BPM Atrial Rate : 060 BPM P-R Int : 142 ms QRS Dur : 094 ms QT Int : 448 ms P-R-T Axes : 047 054 052 degrees QTc Int : 448 ms Sinus rhythm with marked sinus arrhythmia Confirmed by EMMANUEL WONG MD ([id number]), fashion editor VENKAT PRADO ([id number]) on 01/19/2018 2:17:47 PM Referred By: Rudy Curran Confirmed By:EMMANUEL WONG MD 01/19/18 1417 Date Emmanuel Wong MD CC: Humberto Aguilar MD; Rudy Pate MD Signed EMERGENCY DEPARTMENT Observed: 01/18/2018 Status: F Source: [facility] 5:18 [facility] Medical Records Department [address] [place] [address] Emergency Department Summary 01/18/18 1710 MR#: [id number] Acct: [id number] Name: KAYA ARCE Rep #: [id number] : 1985 32 From: Israel Madrid MD PCP: Rudy Curran DO Status: REG ER - ER Visit Summary Date of Service: 01/18/18 Chief Complaint: Patient has a multitude of symptoms which include headache, palpitations, fast heart rate, fatigue and left-sided chest pain. History of Present Illness: The patient is a 32 F who was recently admitted to the hospital underwent significant workup. She has symptomatic bradycardia. Beta-blockers were terminated. She did wear a Holter monitor and the monitor revealed variance in heart rate from 40s to as high as 135. PACs were noted. There was no evidence of paroxysmal H tachycardia, narrow complex reentry tachycardia etc. Patient apparently perceives all of her PACs. She reports night sweats. She does have history of polycystic ovarian syndrome. She denies ocular, visual auditory symptoms. She presently denies headache or chest pain. She denied any GI or symptoms. She denies history of PE or DVT. She states she was started on Paxil for presumed anxiety. Please read written note for complete detail Physical Examination: Vital signs noted. Blood pressure is slightly elevated 128/86. BMI is 32.9. Affect is depressed. HEENT exam is unremarkable. Heart is regular with occasional ectopic beat and noted to be a PAC on the monitor. Lungs are clear to auscultation. Abdomen is soft nontender. There is no asymmetry, swelling, discoloration, leg vein distention, palpable cords or tenderness along the distribution of the deep venous system. Neuro exam is nonfocal. Please read written note for complete detail Test Results: EKG interpreted by me as sinus rhythm with premature supraventricular complexes and a ventricular rate of 84. VA interval, QRS duration and QT interval are normal. [place] is normal. CBC, basic medical panel and troponin are normal. Emergency Department Course and Treatment: Dr. Baptiste's office was contacted since there is no Holter monitor report. I was informed by his nurse Yesy that she had a wide range of heart rate with PACs and no significant dysrhythmia. Patient was informed of the Holter monitor results. She was informed discussed medication options with Dr. Baptiste. He recommended that she take the medication he prescribed and he will see her at 115 for her scheduled appointment tomorrow January 19. Treatment Plan: Keep appointment with Dr. Ricardo Baptiste tomorrow Disposition: Discharged home Impression: Sinus rhythm with variable heart rate and premature atrial complexes Multiple vague somatic symptoms History of polycystic ovarian syndrome This note was generated with eSellerProation software. It may contain incorrect words, spelling, and punctuation that were not noted in review of the chart prior to signing ED Disposition - Plan for ED Patient: Disposition: Home or Assisted Living Chief Complaint: Palpitations Instructions: ED Palpitations Referrals: Rudy Curran DO [Primary Care Provider] - Additional Instructions: Keep your appointment with Dr. Ricardo Baptiste for tomorrow at 1315. What to do if you have Problems For any increased pain, shortness of breath, bleeding, nausea or vomiting, chest pain, or any unexpected problems, contact your Primary Care Provider. Call [facility] ([phone]) or report to the closest Emergency Room. Call 911 if necessary. 01/18/18 1718 <Electronically signed by Israel Madrid MD> Date Israel Madrid MD Cosigner Signature (If Indicated): Date CC: Sterling Stern MD; Rudy Curran DO; Maci Garcia MD CBC W/DIFF, AUTOMATED Collected: 01/18/2018 Status: F Source: [place] 4:10 PM [facility] REPOSITORY TYPE CODE TESTS RESULT OUT OF RANGE REFERENCE UNITS LAB L100.1000 4.4-11.0 K/mm3 Normal WBC 9.8 LAB L100.1200 4.2-5.4 M/mm3 Normal RBC 4.59 LAB L100.1300 12.0-15.0 g/dl Normal HGB 12.6 LAB L100.1400 37-47 % Normal HCT 39.8 LAB L100.1500 81-99 fL Normal MCV 86.7 LAB L100.1600 27.0-32.0 pg Normal MCH 27.5 LAB L100.1700 32-36 g/gl Low MCHC 31.7 LAB L100.1810 11.6-14.6 % Normal RDW CV 13.0 LAB L100.1820 35.1-43.9 fl Normal RDW SD 41.4 LAB L100.1900 150-450 K/mm3 Normal PLT 309 LAB L100.2000 6.2-12.0 fl Normal MPV 8.9 LAB L100.2100 47-70 % Normal NEUT% 54.5 LAB L100.2200 19-41 % Normal LY% 36.2 LAB L100.2300 0-10 % Normal MONO% 6.6 LAB L100.2400 0-5 % Normal EO% 2.3 LAB L100.2500 0-1 % Normal BASO% 0.2 LAB L100.2550 0.0-0.9 % Normal IM GRAN % 0.200 Result Comment: IG% - Immature Granulocytes (promyelocytes, myelocytes and metamyelocytes) > 1% indicates that a LEFT SHIFT is Present. LAB L100.2620 2.0-7.7 X10 3/uL Normal Absolute Neut 5.3 LAB L100.2720 0.83-4.51 X10 3/ul Normal Absolute Lymph 3.54 Performed By: #### L100.0100 #### [facility] [address] [place], [place], [address] BASIC METABOLIC Collected: 01/18/2018 Status: F Source: [place] PROFILE (BMP) 4:10 PM [facility] REPOSITORY TYPE CODE TESTS RESULT OUT OF RANGE REFERENCE UNITS LAB L501.0100 74-106 mg/dL Normal GLU 89 Result Comment: Please note revised GLUCOSE reference range effective 2017. LAB L501.1000 7-18 mg/dL Normal BUN 12 LAB L501.1100 0.55-1.02 mg/dL Normal CREAT,SERUM 0.76 Result Comment: The validity of the calculated GFR AND GFRAA in patients over 70 years has not been determined. Clinical correlation is essential. LAB L501.1110 >60 mL/min Normal EST GFR 93 Result Comment: Non- GFR Calc LAB L501.1115 >60 mL/min Normal EST GFR - AA 112 Result Comment: GFR Calc LAB L501.1255 ml/min Normal Estimated CRCL 82.49 LAB L501.1300 10-20 RATIO Normal BUN/CRE 15.8 LAB L501.2200 8.5-10 mg/dL Normal .1 CA 9.4 LAB L501.5300 136-14 mmol/L Normal 5 NA 141 LAB L501.5600 3.5-5. mmol/L Normal 1 K 3.7 LAB L501.5900 98-107 mmol/L Normal CL 104 LAB L501.6100 21.0-3 mmol/L Normal 2.0 CO2 31.0 LAB L501.6200 5-15 Normal GAP 6 Performed By: #### L500.2500, L501.4010 #### [facility] [address] [place], [address] TROPONIN-I Collected: 01/18/2018 Status: F Source: [place] 4:10 PM [facility] REPOSITORY TYPE CODE TESTS RESULT OUT OF RANGE REFERENCE UNITS LAB L501.4010 <0.045 ng/mL Normal < 0.015 TROPONIN-I Result Comment: TROPONIN-I EXPECTED VALUES <0.045 Negative 0.045 - 0.590 Consistent with Cardiac Damage > OR = 0.600 Critical Value Not every elevated troponin is indicative of VA. These values should be used with clinical judgement in examining the patient's clinical picture for diagnosis. To establish a diagnosis of VA versus myocardial injury, there must be a demonstrated rise and/or fall in the troponin values, in addition to ischemic symptoms, EKG changes, new regional wall motion abnormality, and/or angiographical evidence. PLEASE NOTE: REFERENCE RANGES EDITED 17 Performed By: #### L500.2500, L501.4010 #### [facility] [address] [place], [place], [address] CHEST PA AND LATERAL Observed: 01/18/2018 Status: F Source: [place]ACK 4:03 PM [facility] REPOSITORY [facility] Imaging Services [address] [place] [address] Chest PA and Lateral MR#: [id number] Acct: [id number] Name: KAYA ARCE Rep #: [id number] : 1985 F 32 From: Rafael Faust MD PCP: Rudy Curran DO Status: REG ER Study: Chest PA and Lateral Date of Exam: 01/18/18 Exam# [id number] Ordering Dr: Israel Madrid MD STUDY: X-RAY CHEST REASON FOR EXAM: Female, 32 years old. Palpitations TECHNIQUE: PA and lateral views of the chest. COMPARISON: 01/12/2018 FINDINGS: EKG leads overlie the chest The lungs are clear and expanded. There is no demonstrated pleural abnormality. Normal size heart. Normal mediastinum and jim. Normal visualized pulmonary arteries. Normal visualized aortic arch and descending thoracic aorta. Normal visualized thoracic spine. Normal visualized ribs, clavicles, and shoulders. There is no demonstrated abnormality of the visualized soft tissue structures of the upper abdomen. RAD/Chest PA and Lateral IMPRESSION: Normal x-ray examination of the chest. Electronically Signed: Chivo Faust MD at 16:34 EDT , Service support , CC: Rudy Curran DO; Israel Madrid MD Profiler Hand: Signed 12 LEAD ELECTROCARDIOGRAM Observed: 01/17/2018 Status: F Source: ELIZ[place]ETH 12:34 PM [facility] REPOSITORY [facility] Cardiovascular Services [address] [place] [address] 12 Lead EKG 01/12/18 1906 MR#: [id number] Acct: [id number] Name: KAYA ARCE Rep #: [id number] : 1985 32 From: Emmanuel Wong MD [facility] DIS K[facility]NA Ordering Dr: Marie Ruiz MD Date: 01/12/18 Location: [facility] Sex: F C Admitted: 01/12/18 Test Reason : PALPITATIONS Blood Pressure : / mmHG Vent. Rate : 065 BPM Atrial Rate : 065 BPM P-R Int : 140 ms QRS Dur : 090 ms QT Int : 424 ms P-R-T Axes : 070 066 065 degrees QTc Int : 440 ms Sinus rhythm with marked sinus arrhythmia Otherwise normal ECG Confirmed by BÁRBARA WHARTON, EMMANUEL ([id number]), fashion editor SHOLA TONEY ([id number]) on 01/17/2018 12:34:07 PM Referred By: Confirmed By:EMMANUEL WONG MD 01/17/18 1234 Date Emmanuel Wong MD CC: Marie Ruiz MD; Rudy Curran DO; Markos Pate MD Signed DISCHARGE SUMMARY Observed: 01/16/2018 Status: F Source: [place] 2:50 PM [facility] REPOSITORY [facility] Medical Records Department [address] [place] [address] Discharge Summary 01/15/18 1017 MR#: [id number] Acct: [id number] Name: KAYA ARCE Rep #: [id number] : 1985 32 From: Markos Pate MD PCP: Rudy Curran DO Status: DIS KARENA Y Location: [place] [address] Discharge Date and Diagnosis Date of Admission: 01/12/18 Date of Discharge: 01/15/18 - Primary Discharge Diagnosis Active and Suspected Problems (Last Reviewed 01/12/18 @ 22:25 by Humberto Aguilar MD) Symptomatic bradycardia (Acute) - Secondary Discharge Diagnosis Chronic Problems (Last Reviewed 01/12/18 @ 22:25 by Humberto Aguilar MD) Endometriosis (Chronic) 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 Baptiste in the outpatient, status post 30-day event monitor was admitted with worsening palpitations and syncope. Patient had initially presented to the emergency department and was going to be discharged when she is said to have had a syncopal episode. 1. Syncope/Symptomatic bradycardia, home atenolol held, no bradycardia seen,, 2D echo shows normal EF, stress test negative Discussed with Dr. Baptiste on phone, requested that patient started on pindolol 2.5 mg daily and monitored on the telemetry. Patient on telemetry shows sinus rhythm with heart rate in 70s to 80/min. Patient was advised to follow with Dr. Baptiste on Wednesday in the office. 2. History of anxiety, intolerant of SSRIs pain history, started on Ativan as needed. Patient requested saying that she did good with Ativan as an outpatient. 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 She states her grandmother is on Ativan and probably has tried her pill. Patient was given a prescription of Xanax 0.5 mg 3 times daily as needed for anxiety total 7 tablets. Follow with PCP. 3. History of hypokalemia, potassium is normal, resolved. 4. Anemia, normocytic normochromic, stable at 11.8. Iron profile was done and is within normal limit. She had concern of hemochromatosis but iron is 72, iron saturation 25.4% and ferritin 33. 5. PCOS 6. GERD, on PPI 7. DVT prophylaxis with Lovenox subcu [] Discharge medication reconciliation done. Discharge follow- up which was completed. Total time spent, exact 35 minutes, more than half on the discussion of anxiety/panic attack and on discharge meds reconciliation, examination, review of imaging and blood test and discussion with the patient on follow-up instructions. - Physical Exam General: Alert, Oriented x3, Cooperative HEENT: Atraumatic, PERRLA, EOMI, Normocephalic Neck: Supple, No JVD, Negative Carotid Bruits Lungs: Clear to auscultation, Normal air movement, No rhonchi, No wheeze, No rales Cardiovascular: Regular rate, Regular Rhythm, Normal S1, Normal S2, No murmurs Abdomen: Bowel Sounds Present, Soft, Non Tender, Non-Distended Extremities: No edema, Capillary Refill Less than 3 Seconds Skin: No rashes, No breakdown Musculoskeletal: No Tenderness to Palpation of Joints or Extremities Neurological: Cranial nerves II-XII grossly intact Psych/Mental Status: Normal Affect, Appropriate Vital Signs Temp Pulse Resp BP Pulse Ox 98.6 F 79 16 102/56 L 98 01/15/18 04:10 01/15/18 06:57 01/15/18 04:10 01/15/18 04:10 01/15/18 07:50 Oxygen Delivery Method Room Air Weight: 182 lb 5.156 oz Body Mass Index (BMI) 33.3 Finger Stick Blood Glucose 129 Intake and Output for Last 24 Hours Intake Total 960 / 960 2210 / 2210 0 / 0 Output Total 0 / 0 Balance 960 / 960 2210 / 2210 0 / 0 Laboratory Tests Past 24 Hrs Iron 72 TIBC 283 Iron Saturation 25.4 Ferritin 33 Discharge Activity: Return to Normal Activity, May not drive while taking narcotic pain medications. - for bradycardia and check with PCP 1 WEEK for resumtion Call your doctor if you observe: Fever of 101 or Higher, Change in Color, Inability to have a bowel movement, Shortness of breath, Dizziness, Fainting spells, Swelling in the ankles, Chest pain Home Medications: Medications to take at Discharge Omeprazole [Prilosec] 20 mg PO DAILY 11/30/16 cetirizine 10 mg tablet 10 mg PO QDAY 06/28/17 multivitamin tablet 1 tab PO DAILY 12/13/17 Potassium Chloride [Klor-Con] 40 meq PO DAILY 01/12/18 Lidocaine 2% Jelly [Xylocaine 2% Jelly] 1 applicatio TOPICAL PRN PRN 01/13/18 Nifedipine, Micronized [Nifedipine Micronized] 1 applicatio TOPICAL PRN PRN 01/13/18 Alprazolam [Xanax] 0.25 mg PO TID PRN PRN #7 tab 01/15/18 Pindolol [Pindolol (Beta Edson)] 2.5 mg PO DAILY #30 tablet 01/15/18 Following Prescrptions Were Given to Patient: Alprazolam [Xanax] 0.25 mg PO TID PRN PRN #7 tab PRN Reason: Anxiety Pindolol [Pindolol (Beta Edson)] 2.5 mg PO DAILY #30 tablet Primary Care Physician: Rudy Curran DO [Primary Care Provider] - Please follow up with your Primary Care Physician in: in 1 week Please Follow Up With: Sterling Stern MD When: in 2 weeks for bradycardia Medical Necessity - Tobacco Use Smoking Status: Never smoker Meaningful Use Info Meaningful Use Diagnoses (Choose all that apply): None applicable Code Visit Inpatient E AND M: 14737 Disch Hosp 01/16/18 1450 <Electronically signed by Markos Pate MD> Date Markos Pate MD Cosigner Signature (if applicable): Date CC: Rudy Curran DO; Markos Pate MD Signed DISCHARGE INSTRUCTION Observed: 01/15/2018 Status: F Source: [place]IZ[place]ETH 10:17 AM [facility] REPOSITORY [facility] Medical Records Department [address] [place] [address] Instructions for Home/Discharge Instructions 01/15/18 1015 MR#: [id number] Acct: [id number] Name: KAYA ARCE Rep #: [id number] : 1985 32 From: Markos Pate MD PCP: Rudy Curran DO Status: ADM KARENA - Discharge Diagnoses Current Active Problems: Current Active and Chronic Problems (Last Reviewed 01/12/18 @ 22:25 by Humberto Aguilar MD) Symptomatic bradycardia (Acute) You will use the following diet at home:: Cardiac Your food should be the consistency of: Regular Discharge Activity: Return to Normal Activity, May not drive while taking narcotic pain medications. - for bradycardia and check with PCP 1 WEEK for resumtion Call your doctor if you observe: Fever of 101 or Higher, Change in Color, Inability to have a bowel movement, Shortness of breath, Dizziness, Fainting spells, Swelling in the ankles, Chest pain Allergies/Adverse Reactions: Allergies eucalyptus Allergy (Mild, Verified 01/12/18 18:51) unknown latex Allergy (Mild, Verified 01/12/18 18:51) Unknown cephalexin monohydrate [From Keflex] Allergy (Verified 01/12/18 18:51) Anaphylaxis doxycycline Adverse Reaction (Verified 01/12/18 18:51) Diarrhea Medications to take at Discharge Omeprazole [Prilosec] 20 mg PO DAILY 11/30/16 cetirizine 10 mg tablet 10 mg PO QDAY 06/28/17 multivitamin tablet 1 tab PO DAILY 12/13/17 Potassium Chloride [Klor-Con] 40 meq PO DAILY 01/12/18 Lidocaine 2% Jelly [Xylocaine 2% Jelly] 1 applicatio TOPICAL PRN PRN 01/13/18 Nifedipine, Micronized [Nifedipine Micronized] 1 applicatio TOPICAL PRN PRN 01/13/18 Pindolol [Pindolol (Beta Edson)] 2.5 mg PO DAILY #30 tablet 01/15/18 The following prescriptions were given: Pindolol [Pindolol (Beta Edson)] 2.5 mg PO DAILY #30 tablet Primary Care Physician: Rudy Curran DO [Primary Care Provider] - Please follow up with your Primary Care Physician in: in 1 week Test Results: Test results from this visit will be discussed in further detail at your follow-up appointment, if applicable. Please Follow Up With: Sterling Stern MD When: in 2 weeks for bradycardia 01/15/18 1017 <Electronically signed by Markos Pate MD> Date Markos Pate MD CC: Rudy Curran DO STRESS REPORT Observed: 01/14/2018 Status: F Source: ELIZABETH 10:31 AM [facility] REPOSITORY [facility] Cardiovascular Services [address] [place] [address] MR#: [id number] Acct: [id number] Name: KAYA ARCE Rep #: [id number] : 1985 32 From: Emmanuel Wong MD Primary Care: Rudy Curran DO Status: ADM KARENA Ordering Dr: Sex: F C Stress Test Report Date: 01/14/2018 Procedure: Exercise tolerance test/imaging study Indications: Chest pain Consent: Per the patient Procedure: The patient exercised on a Severino protocol for 8 minutes completing Stage II and 2 minutes of Stage III achieving a peak heart rate of 179 bpm (96 % predicted maximal heart rate) with a peak blood pressure 138/50 mmHg and a peak MET capacity of 9 METs. The baseline ECG demonstrated sinus arrhythmia. The peak exercise ECG demonstrated no obvious ECG changes. The cardiac rhythm pretest appeared compatible with sinus arrhythmia. The functional capacity was considered good. There was no complaint of chest discomfort during exercise or recovery. The examination was discontinued secondary to dyspnea. Impression: 1. Technically adequate (percent predicted maximal heart rate greater than 85%) exercise tolerance test 2. Peak exercise ECG no obvious ECG changes 3. The cardiac rhythm pretest appeared compatible with sinus arrhythmia 4. Nuclear images pending Myocardial perfusion imaging study: Technique: The patient was injected with 11.9 mCi of technetium 99m Cardiolite and subsequently rest SPECT Cardiolite nuclear imaging was obtained in the horizontal long, vertical long, and short axis views. The patient exercised on a Severino protocol for 8 minutes completing Stage II and 2 minutes of Stage III achieving a peak heart rate of 179 bpm (96 % predicted maximal heart rate) with a peak blood pressure 138/50 mmHg and a peak MET capacity of 9 METs. The patient was injected with 33.2 mCi of technetium 99m Cardiolite and subsequently stress SPECT Cardiolite nuclear imaging was obtained in the horizontal long, vertical long, and short axis views. A gated Cardiolite study at peak stress was obtained. Interpretation: Rest and stress SPECT Cardiolite nuclear imaging status post realignment, normalization, and attenuation correction, demonstrates the appearance of relative uniform tracer uptake and myocardial perfusion appearing within normal limits. There is end systolic thickening and brightening. The gated Cardiolite study demonstrates myocardial thickening and inward wall motion. The reported LVEF is 81 %. Impression: 1. Rest and stress SPECT Cardiolite nuclear imaging demonstrate relative uniform tracer uptake and myocardial perfusion appearing within normal limits. 2. The gated Cardiolite study reports an LVEF of 81 %. This note was generated with eSeller[employer]ation software. It may contain incorrect words, spelling, and punctuation that were not noted in checking the note before signing. 01/14/18 1031 <Electronically signed by Emmanuel Wong MD> Date Emmanuel Wong MD CC: Gali Dill MD; Rudy Curran DO Date Dictated: 01/14/18 1014 Date Transcribed: 01/14/18 1014 Profiler Hand: PM Signed CBC W/DIFF, AUTOMATED Collected: 01/14/2018 Status: F Source: [place]ETH 5:10 AM [facility] REPOSITORY TYPE CODE TESTS RESULT OUT OF RANGE REFERENCE UNITS LAB L100.1000 4.4-11.0 K/mm3 Normal WBC 7.6 LAB L100.1200 4.2-5.4 M/mm3 Normal RBC 4.28 LAB L100.1300 12.0-15.0 g/dl Low HGB 11.8 LAB L100.1400 37-47 % Normal HCT 37.0 LAB L100.1500 81-99 fL Normal MCV 86.4 LAB L100.1600 27.0-32.0 pg Normal MCH 27.6 LAB L100.1700 32-36 g/gl Low MCHC 31.9 LAB L100.1810 11.6-14.6 % Normal RDW CV 12.7 LAB L100.1820 35.1-43.9 fl Normal RDW SD 39.4 LAB L100.1900 150-450 K/mm3 Normal PLT 309 LAB L100.2000 6.2-12.0 fl Normal MPV 8.9 LAB L100.2100 47-70 % Low NEUT% 43.3 LAB L100.2200 19-41 % High LY% 46.9 LAB L100.2300 0-10 % Normal MONO% 6.0 LAB L100.2400 0-5 % Normal EO% 3.1 LAB L100.2500 0-1 % Normal BASO% 0.4 LAB L100.2550 0.0-0.9 % Normal IM GRAN % 0.300 Result Comment: IG% - Immature Granulocytes (promyelocytes, myelocytes and metamyelocytes) > 1% indicates that a LEFT SHIFT is Present. LAB L100.2620 2.0-7.7 X10 3/uL Normal Absolute Neut 3.3 LAB L100.2720 0.83-4.51 X10 3/ul Normal Absolute Lymph 3.58 Performed By: #### L100.0100 #### [facility] [address] [place], [place], [id number] BASIC METABOLIC Collected: 01/14/2018 Status: F Source: [place] PROFILE (BMP) 5:10 AM [facility] REPOSITORY TYPE CODE TESTS RESULT OUT OF RANGE REFERENCE UNITS LAB L501.0100 74-106 mg/dL Normal GLU 94 Result Comment: Please note revised GLUCOSE reference range effective 2017. LAB L501.1000 7-18 mg/dL Normal BUN 10 LAB L501.1100 0.55-1.02 mg/dL Normal CREAT,SERUM 0.78 Result Comment: The validity of the calculated GFR AND GFRAA in patients over 70 years has not been determined. Clinical correlation is essential. LAB L501.1110 >60 mL/min Normal EST GFR 89 Result Comment: Non- GFR Calc LAB L501.1115 >60 mL/min Normal EST GFR - AA 108 Result Comment: GFR Calc LAB L501.1255 ml/min Normal Estimated CRCL 80.38 LAB L501.1300 10-20 RATIO Normal BUN/CRE 12.8 LAB L501.2200 8.5-10 mg/dL Normal .1 CA 8.5 LAB L501.5300 136-14 mmol/L Normal 5 NA 142 LAB L501.5600 3.5-5. mmol/L Normal 1 K 3.9 LAB L501.5900 98-107 mmol/L High CL 108 LAB L501.6100 21.0-3 mmol/L Normal 2.0 CO2 26.0 LAB L501.6200 5-15 Normal GAP 8 Performed By: #### L500.2500 #### [facility] [address] [place], [place], [address] PROTHROMBIN TIME W/INR Collected: 01/14/2018 Status: F Source: [place] 5:10 AM [facility] REPOSITORY TYPE CODE TESTS RESULT OUT OF RANGE REFERENCE UNITS LAB L300.4150 11.7-14.9 SECONDS Normal PROTIME 13.4 LAB L300.4200 Normal INR 1.0 Performed By: #### L300.3900, L300.4310 #### [facility] [address] [place], [address] PARTIAL THROMBOPLAST Collected: 01/14/2018 Status: F Source: [place] TIME 5:10 AM [facility] REPOSITORY TYPE CODE TESTS RESULT OUT OF RANGE REFERENCE UNITS LAB L300.4310 24.1-36.2 Seconds Normal PTT 30.2 Performed By: #### L300.3900, L300.4310 #### [facility] [address] [place], [address] IRON+IRON BINDING Collected: 01/14/2018 Status: F Source: [place] CAPACITY 5:10 AM [facility] REPOSITORY Order Comment: Comments: as add on test Comments: as add on test TYPE CODE TESTS RESULT OUT OF RANGE REFERENCE UNITS LAB L503.6075 250-450 ug/dL TIBC Normal 283 LAB L503.6150 50-170 ug/dL IRON Normal 72 LAB L503.6250 15.0-55.0 % IRON Normal SATURATION 25.4 Performed By: #### L503.6030, L503.6550 #### [facility] [address] [place], [address] FERRITIN Collected: 01/14/2018 Status: F Source: [place] 5:10 AM [facility] REPOSITORY Order Comment: Comments: as add on test Comments: as add on test TYPE CODE TESTS RESULT OUT OF RANGE REFERENCE UNITS LAB L503.6550 8-252 ng/mL Normal FERRITIN 33 Performed By: #### L503.6030, L503.6550 #### [facility] [address] [place], [address] ECHO, COMPLETE W/ Observed: 01/13/2018 Status: F Source: [place] CONTRAST 3:04 PM [facility] REPOSITORY [facility] Cardiovascular Services [address] [place] [address] Echo Complete 01/13/18 1313 MR#: [id number] Acct: [id number] Name: KAYA ARCE Rep #: [id number] : 1985 32 From: Pernell Johnson MD Attending Dr: Gali Dill MD Status: ADM KARENA Ordering Dr: Duy Treadwell Date: 01/13/18 Location: [facility] Sex: F C Admitted: 01/12/18 Reason For Study: CHEST PAIN Procedure This was a 2D Doppler, Color Flow transthoracic echocardiogram. Exam performed portable in patient room. Left Ventricle Normal LV size. Left ventricular systolic function is normal. The estimated ejection fraction is 60 %. No evidence for diastolic dysfunction. No regional wall motion abnormalities noted. Right Ventricle Normal size and thickness. Normal systolic function. Atria Normal left atrium. Normal right atrium. Bubble contrast study negative for right to left interatrial shunt. Mitral Valve Normal mitral valve. Tricuspid Valve Normal tricuspid valve. Aortic Valve Normal aortic valve. Trisinus/trileaflet aortic valve. Pulmonic Valve Normal pulmonic valve. Great Vessels Normal aortic root. The pulmonary artery is normal size. Normal inferior vena cava. Pericardium/Pleural No pericardial effusion. Medication Performed a rapid injection of agitated mix of 9 cc saline and 1cc air to assess for atrial septal defect. MMode/2D Measurements AND Calculations LVIDd: 4.2 cm IVSd: 0.84 cm Ao root diam: 2.4 cm LVIDs: 2.6 cm LVPWd: 0.93 cm RVDd: 3.0 cm FS: 36.4 % LAV(MOD-bp): 28.7 ml LAV(MOD-bp) Indexed: 15.5 ml/m2 LA A4 area: 12.3 cm2 RA A4 area: 10.7 cm2 LAV(MOD-sp2): 24.8 ml LAV(MOD-sp4): 29.1 ml Time Measurements MV dec time: 0.18 sec Doppler Measurements AND Calculations MV E max johnson: 83.6 cm/sec Lat Peak E' Johnson: 11.2 cm/sec Med Peak E' Johnson: 9.3 cm/sec MV A max johnson: 63.1 cm/sec E/E' lat: 7.5 E/E' med: 9.0 MV E/A: 1.3 Ao V2 max: 131.0 cm/sec LV V1 max: 104.1 cm/sec PA V2 max: 100.4 cm/sec Ao max P.9 mmHg LV V1 max P.3 mmHg Interpretation Summary Normal LV size. Left ventricular systolic function is normal. The estimated ejection fraction is 60 %. No evidence for diastolic dysfunction. Bubble contrast study negative for right to left interatrial shunt. Ordering Physician: Duy Treadwell Referring Physician: Rudy Curran Performed By: Catherine Arellano, OPAL, RVT 01/13/18 5205 Date Pernell Johnson MD CC: HARVINDER Treadwell; Gali Dill MD; Rudy Curran DO Date Dictated: 01/13/18 1313 Date Transcribed: 01/13/181502 Profiler Hand: Signed TROPONIN-I Collected: 01/13/2018 Status: F Source: [place] 10:51 AM [facility] REPOSITORY Order Comment: 'TROP' Serial specimen #1, #2 or #3: 2 TYPE CODE TESTS RESULT OUT OF RANGE REFERENCE UNITS LAB L501.4010 <0.045 ng/mL Normal < 0.015 TROPONIN-I Result Comment: TROPONIN-I EXPECTED VALUES <0.045 Negative 0.045 - 0.590 Consistent with Cardiac Damage > OR = 0.600 Critical Value Not every elevated troponin is indicative of VA. These values should be used with clinical judgement in examining the patient's clinical picture for diagnosis. To establish a diagnosis of VA versus myocardial injury, there must be a demonstrated rise and/or fall in the troponin values, in addition to ischemic symptoms, EKG changes, new regional wall motion abnormality, and/or angiographical evidence. PLEASE NOTE: REFERENCE RANGES EDITED 17 Performed By: #### L501.4010 #### [facility] [address] [place], [address] BASIC METABOLIC Collected: 01/13/2018 Status: F Source: [place] PROFILE (BMP) 5:32 AM [facility] REPOSITORY TYPE CODE TESTS RESULT OUT OF RANGE REFERENCE UNITS LAB L501.0100 74-106 mg/dL Normal GLU 103 Result Comment: Fasting Glucose result from 100 to 125 mg/dL suggests IMPAIRED HOMEOSTASIS per A.D.A. criteria. Please note revised GLUCOSE reference range effective 2017. LAB L501.1000 7-18 mg/dL Normal BUN 7 LAB L501.1100 0.55-1.02 mg/dL Normal CREAT,SERUM 0.78 Result Comment: The validity of the calculated GFR AND GFRAA in patients over 70 years has not been determined. Clinical correlation is essential. LAB L501.1110 >60 mL/min Normal EST GFR 90 Result Comment: Non- GFR Calc LAB L501.1115 >60 mL/min Normal EST GFR - AA 109 Result Comment: GFR Calc LAB L501.1255 ml/min Normal Estimated CRCL 80.38 LAB L501.1300 10-20 RATIO Low BUN/CRE 9.0 LAB L501.2200 8.5-10 mg/dL Low .1 CA 8.3 LAB L501.5300 136-14 mmol/L Normal 5 NA 141 LAB L501.5600 3.5-5. mmol/L Normal 1 K 3.7 LAB L501.5900 98-107 mmol/L High CL 109 LAB L501.6100 21.0-3 mmol/L Normal 2.0 CO2 26.0 LAB L501.6200 5-15 Normal GAP 6 Performed By: #### L500.2500 #### [facility] [address] [place], [address] HISTORY AND PHYSICAL Observed: 01/13/2018 Status: F Source: [place] EXAM 12:54 AM [facility] REPOSITORY [facility] Medical Records Department [address] [place] [address] History and Physical 01/12/18 2152 MR#: [id number] Acct: [id number] Name: KAYA ARCE Rep #: [id number] : 1985 32 From: Humberto Aguilar MD PCP: Rudy Curran DO Status: ADM KARENA Y Location: [place] [address] Problem List (1) Symptomatic bradycardia Status: Acute (2) Abdominal pain Status: Acute Qualifiers: Abdominal location: lower abdomen, unspecified Qualified Code(s): R10.30 - Lower abdominal pain, unspecified (3) Diarrhea Status: Chronic (4) Hematochezia Status: Chronic (5) PCOS (polycystic ovarian syndrome) Status: Chronic (6) Ankylosing spondylitis Status: Chronic (7) Exercise-induced asthma Status: Chronic (8) Mitral regurgitation Status: Chronic (9) Tachycardia Status: Chronic History of Present Illness Date of Admission: 01/12/18 Chief Complaint: palpitations The patient is a 32 year old F with a significant history of Crohn's disease; kidney stone; PCOS; endometritis; chronic hypokalemia who presents with 4 days history of worsening fluttering of her chest. Associated with her symptoms is light headedness and near syncope. Because patient has been having fluttering for a long time she saw Dr. Baptiste. 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 However in the last 4 days her symptoms has been worsening so she came to the emergency department. At the emergency department on the day of presentation; ED doctor talked to Dr. Baptiste. The initial plan from Dr. Baptiste was for atenolol to be stopped and patient to be followed up outpatient. However because reportedly patient passed out at emergency department patient was admitted and ED doctor notified Dr. Baptiste. Patient is on atenolol outpatient because of tachycardia. EKG at the emergency department showed sinus arrhythmia. 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 for diagnostic surgical evaluation possible hysterectomy, history of severe scar tissue seen on previous laparoscopy Ovarian cyst (Chronic) Diarrhea (Chronic) Hematochezia (Chronic) PCOS (polycystic ovarian syndrome) (Chronic) Ankylosing spondylitis (Chronic) Exercise-induced asthma (Chronic) Mitral regurgitation (Chronic) Tachycardia (Chronic) Medical History: Medical History (Last Reviewed 01/12/18 @ 22:25 by Humberto Aguilar MD) PCOS (polycystic ovarian syndrome) (Chronic) E28.2 Ankylosing spondylitis (Chronic) M45.9 Exercise-induced asthma (Chronic) J45.990 Mitral regurgitation (Chronic) I34.0 Endometriosis N80.9 Allergies eucalyptus Allergy (Mild, Verified 01/12/18 18:51) unknown latex Allergy (Mild, Verified 01/12/18 18:51) Unknown cephalexin monohydrate [From Keflex] Allergy (Verified 01/12/18 18:51) Anaphylaxis doxycycline Adverse Reaction (Verified 01/12/18 18:51) Diarrhea Home Medications: Ambulatory Orders Medication Instructions Recorded Atenolol [Tenormin (beta Edson)] 25 mg PO DAILY 01/11/16 Surgical History: Surgical History (Last Reviewed 01/13/18 @ 00:43 by Humberto Aguilar MD) History of Z98.891 History of hernia repair Z98.890, Z87.19 Hx of removal of ovary Surgical History: - - History of left fallopian tube removal. Lives: With Family - Lives with her son. Smoking Status: Never smoker Alcohol: None - *Family History Maternal Family History: Family History (Last Reviewed 01/12/18 @ 22:26 by Humberto Aguilar MD) Mother Heart disease Father Heart disease Diabetes Review of Systems Constitutional: Reports: Fatigue. Denies: Chills, Fever, Weight Change Eyes: Denies: Blurred vision, Pain HEENT: Reports: Post Nasal Drip. Denies: Head Aches, Sinus Congestion, Sinus Drainage Cardiovascular: Reports: Light Headedness, Syncope. Denies: Chest Pain, Palpitations Respiratory: Denies: Cough, Shortness of breath at rest, Sputum production Gastrointestinal: Denies: Abdominal Pain, Nausea, Vomiting Genitourinary: Denies: Dysuria Gynecological: Denies: Breast symptoms Musculoskeletal: Denies: Joint Pain, Joint Tenderness Skin: Denies: Rash, Wounds Neurological: Denies: Numbness, Tingling, Focal weakness Psychiatric: Denies: Anxiety, Depression, Homicidal Ideations, Suicidal Ideations Hematologic/ Lymphatic: Denies: Easy Bruising, Easy Bleeding VTE Information - Inpt Only VTE Present on Admission: No VTE Mechan Device Prophylaxis: None VTE Pharm Prophylaxis ordered?: Yes Patient Problems: Active and Suspected Problems (Last Reviewed 01/12/18 @ 22:25 by Humberto Aguilar MD) Symptomatic bradycardia (Acute) - Physical Exam General: Alert, Oriented x3, Cooperative HEENT: Atraumatic, PERRLA, EOMI, Normocephalic Neck: Supple, No JVD, Negative Carotid Bruits Lungs: Clear to auscultation, Normal air movement Cardiovascular: No murmurs, Bradycardic, Irregular Rate, No rub noted Abdomen: Bowel Sounds Present, Soft, Non Tender Extremities: No edema, Capillary Refill Less than 3 Seconds Skin: No rashes, No breakdown Musculoskeletal: No Tenderness to Palpation of Joints or Extremities Neurological: Cranial nerves II-XII grossly intact Psych/Mental Status: Normal Affect, Appropriate Vital Signs Temp Pulse Resp BP Pulse Ox 98.9 F 57 L 15 121/91 H 97 01/12/18 18:52 01/12/18 21:36 01/12/18 21:36 01/12/18 21:36 01/12/18 21:36 Oxygen Delivery Method Room Air Weight: 82.8 kg Body Mass Index (BMI) 33.3 Finger Stick Blood Glucose 129 Laboratory Tests Past 24 Hrs WBC 9.9 RBC 4.33 Hgb 11.9 L Hct 37.6 MCV 86.8 MCH 27.5 MCHC 31.6 L WBC RBC Hgb Hct MCV MCH MCHC RDW RDW Differential Plt Count MPV Assessment/Plan All Active Problems (Last Reviewed 01/12/18 @ 22:25 by Humberto Aguilar MD) Symptomatic bradycardia (Acute) Abdominal pain (Acute) Prolapse of intestine (Acute) Diverticulosis (Acute) Hemorrhoids (Acute) Anal fissure (Acute) The patient is a 32 year old F with a significant history of Crohn's disease; kidney stone; PCOS; endometritis; chronic hypokalemia who presents with 4 days history of worsening fluttering of her chest and found to have symptomatic bradycardia. Symptomatic bradycardia Independent review of EKG showed sinus arrhythmia. Lowest heart rate at emergency department was 48. Atenolol held Admitted to PCU on telemetry. Event monitor in place. Patient will be admitted overnight and if stable can be discharged home to follow up with Dr. Baptiste. Consider cardiology consult if patient continues to have symptomatic bradycardia. Chronic hypokalemia Admission potassium was normal at 3.8. We will continue home potassium supplement Trend BMP. Anemia Mild Patient reports heavy bleeding and is on hormone replacement therapy. No further workup at this time. Allergies Patient reports that she takes Zyrtec and Flonase at home; will continue. GERD Prilosec continued. DVT prophylaxis Patient is obese and on hormone replacement therapy. Lovenox subcutaneous. Miscellaneous: Patient take progesterone every first time of the month. Code Visit OBSV E AND M: [id number] Initial observation care L3 01/13/18 0054 <Electronically signed by Humberto Aguilar MD> Date Humberto Aguilar MD Cosigner Signature: Date (if applicable) CC: Humberto Aguilar MD; Rudy Curran DO Signed EMERGENCY DEPARTMENT Observed: 01/12/2018 Status: F Source: [place] SUMMARY 10:33 PM [facility] REPOSITORY [facility] Medical Records Department [address] [place] [address] Emergency Department Summary 01/12/188 MR#: [id number] Acct: [id number] Name: KAYA ARCE Rep #: [id number] : 1985 32 From: Marie Ruiz MD PCP: Rudy Curran DO Status: REG ER - ER Visit Summary Date of Service: 01/12/18 Chief Complaint: Dizziness History of Present Illness: The patient is a 32 F presenting with dizziness. She states that this has been going on for intermittently for several years. She is currently wearing a 30-day monitor per Dr. Stern. She has had intermittent palpitations. She denies chest pain. Complains of mild shortness of breath. Denies possibility of . Symptoms are worse with standing. She states she just finished her period and feels that her symptoms are usually worse around her period. Physical Examination: Vitals are stable. Patient is afebrile. Alert no acute distress. HEENT exam is unremarkable. Neck is supple. Lungs are clear and equal bilaterally. Heart is regular rate and rhythm. Abdomen is soft nontender nondistended. Extremities are unremarkable. Skin is warm and dry. No focal neurologic deficit. Remainder of exam is unremarkable. Emergency Department Course and Treatment: EKG is sinus arrhythmia rate of 65. She was given IV fluids. Chest x-ray shows no acute process. CBC shows hemoglobin 11.9. Chemistry unremarkable. Troponin is negative. D-dimer negative. HCG negative. Orthostatics negative. Patient had one episode where her heart rate went to 49. She had dizziness associated with this. She complains of a mild spinning sensation and was given meclizine with no improvement. She is advised to discontinue her atenolol. Discussed with Dr Stern. On further discussion with the patient her heart rate as she was talking went into the low 40s and she nearly passed out. She is uncomfortable with discharge home. Discussed with the hospitalist for observation. Disposition: Observation Impression: Bradycardia, near syncope This note was generated with [employer] dictation software. It may contain incorrect words, spelling, and punctuation that were not noted in review of the chart prior to signing ED Disposition - Plan for ED Patient: Chief Complaint: Palpitations Referrals: Rudy Curran, DO [Primary Care Provider] - What to do if you have Problems For any increased pain, shortness of breath, bleeding, nausea or vomiting, chest pain, or any unexpected problems, contact your Primary Care Provider. Call [facility] ([phone]) or report to the closest Emergency Room. Call 911 if necessary. 01/12/18 2721 <Electronically signed by Marie Ruiz MD> Date Marie Oh Signature (If Indicated): Date CC: Rudy Curran DO BASIC METABOLIC Collected: 01/12/2018 Status: F Source: [place] PROFILE (BMP) 7:35 PM [facility] REPOSITORY Order Comment: 'TROP' Serial specimen #1, #2, #3, or #4: 1 TYPE CODE TESTS RESULT OUT OF RANGE REFERENCE UNITS LAB L501.0100 74-106 mg/dL Normal GLU 84 Result Comment: Please note revised GLUCOSE reference range effective 2017. LAB L501.1000 7-18 mg/dL Normal BUN 8 LAB L501.1100 0.55-1.02 mg/dL Normal CREAT,SERUM 0.82 Result Comment: The validity of the calculated GFR AND GFRAA in patients over 70 years has not been determined. Clinical correlation is essential. LAB L501.1110 >60 mL/min Normal EST GFR 85 Result Comment: Non- GFR Calc LAB L501.1115 >60 mL/min Normal EST GFR - AA 103 Result Comment: GFR Calc LAB L501.1255 ml/min Normal Estimated CRCL 76.46 LAB L501.1300 10-20 RATIO Low BUN/CRE 9.8 LAB L501.2200 8.5-10 mg/dL Normal .1 CA 8.9 LAB L501.5300 136-14 mmol/L Normal 5 NA 141 LAB L501.5600 3.5-5. mmol/L Normal 1 K 3.8 LAB L501.5900 98-107 mmol/L High CL 108 LAB L501.6100 21.0-3 mmol/L Normal 2.0 CO2 26.0 LAB L501.6200 5-15 Normal GAP 7 Performed By: #### L500.2500, L501.4010, L501.9520 #### [facility] [address] [place], [address] TROPONIN-I Collected: 01/12/2018 Status: F Source: [place] 7:35 PM [facility] REPOSITORY Order Comment: 'TROP' Serial specimen #1, #2, #3, or #4: 1 TYPE CODE TESTS RESULT OUT OF RANGE REFERENCE UNITS LAB L501.4010 <0.045 ng/mL Normal < 0.015 TROPONIN-I Result Comment: TROPONIN-I EXPECTED VALUES <0.045 Negative 0.045 - 0.590 Consistent with Cardiac Damage > OR = 0.600 Critical Value Not every elevated troponin is indicative of VA. These values should be used with clinical judgement in examining the patient's clinical picture for diagnosis. To establish a diagnosis of VA versus myocardial injury, there must be a demonstrated rise and/or fall in the troponin values, in addition to ischemic symptoms, EKG changes, new regional wall motion abnormality, and/or angiographical evidence. PLEASE NOTE: REFERENCE RANGES EDITED 17 Performed By: #### L500.2500, L501.4010, L501.9520 #### [facility] [address] [place], [place], [id number] THYROID STIM HORMONE Collected: 01/12/2018 Status: F Source: [place] (TSH) 7:35 PM [facility] REPOSITORY Order Comment: 'TROP' Serial specimen #1, #2, #3, or #4: 1 TYPE CODE TESTS RESULT OUT OF RANGE REFERENCE UNITS LAB L501.9520 0.358-3.74 uIU/mL Normal TSH 1.03 Performed By: #### L500.2500, L501.4010, L501.9520 #### [facility] [address] [place], [place], [address] ,SERUM,HCG QUALI. Collected: Status: F Source: [place] 01/12/2018 7:35 PM [facility] REPOSITORY TYPE CODE TESTS RESULT OUT OF REFERENCE UNITS RANGE LAB L700.7000 0-9 Nonpreg Negative Normal HCGSQUAL NEGATIVE LAB L700.6700 =>Qualitative mIU/mL Normal HCG Qual < 1 triggr Performed By: #### L700.6800 #### [facility] [address] [place], [place], [id number] CHEST 1 VIEW Observed: 01/12/2018 Status: F Source: [place]IZ[place]ETH (PORTABLE) 7:18 PM [facility] REPOSITORY [facility] Imaging [place] [address] Chest 1 View (Portable) MR#: [id number] Acct: [id number] Name: KAYA ARCE Rep #: [id number] : 1985 F 32 From: Katay Chawla MD PCP: Rudy Curran DO Status: REG ER Study: Chest 1 View (Portable) Date of Exam: 01/12/18 Exam# [id number] Ordering Dr: Marie Ruiz MD STUDY: X-RAY CHEST REASON FOR EXAM: Female, 32 years old. Dizzy. TECHNIQUE: Single frontal view of the chest. COMPARISON: November 30, 2016 FINDINGS: The lungs are clear and expanded. There is no demonstrated pleural abnormality. Normal size heart. Normal mediastinum and jim. Normal visualized pulmonary arteries. Normal visualized aortic arch and descending thoracic aorta. Normal visualized thoracic spine. Normal visualized ribs, clavicles, and shoulders. There is no demonstrated abnormality of the visualized soft tissue structures of the upper abdomen. RAD/Chest 1 View (Portable) IMPRESSION: No acute cardiopulmonary process. Electronically Signed: Katya Chawla MD at 19:59 EDT Tel , Service support , CC: Marie Ruiz MD; Rudy Curran DO Profiler Hand: Signed CBC W/DIFF, AUTOMATED Collected: 01/12/2018 Status: F Source: [place] 7:17 PM [facility] REPOSITORY TYPE CODE TESTS RESULT OUT OF RANGE REFERENCE UNITS LAB L100.1000 4.4-11.0 K/mm3 Normal WBC 9.9 LAB L100.1200 4.2-5.4 M/mm3 Normal RBC 4.33 LAB L100.1300 12.0-15.0 g/dl Low HGB 11.9 LAB L100.1400 37-47 % Normal HCT 37.6 LAB L100.1500 81-99 fL Normal MCV 86.8 LAB L100.1600 27.0-32.0 pg Normal MCH 27.5 LAB L100.1700 32-36 g/gl Low MCHC 31.6 LAB L100.1810 11.6-14.6 % Normal RDW CV 13.2 LAB L100.1820 35.1-43.9 fl Normal RDW SD 40.9 LAB L100.1900 150-450 K/mm3 Normal PLT 299 LAB L100.2000 6.2-12.0 fl Normal MPV 8.9 LAB L100.2100 47-70 % Normal NEUT% 55.9 LAB L100.2200 19-41 % Normal LY% 36.3 LAB L100.2300 0-10 % Normal MONO% 5.4 LAB L100.2400 0-5 % Normal EO% 2.0 LAB L100.2500 0-1 % Normal BASO% 0.2 LAB L100.2550 0.0-0.9 % Normal IM GRAN % 0.200 Result Comment: IG% - Immature Granulocytes (promyelocytes, myelocytes and metamyelocytes) > 1% indicates that a LEFT SHIFT is Present. LAB L100.2620 2.0-7.7 X10 3/uL Normal Absolute Neut 5.5 LAB L100.2720 0.83-4.51 X10 3/ul Normal Absolute Lymph 3.58 Performed By: #### L100.0100 #### [facility] [address] [place], [place], [id number] D-DIMER QUANTITATIVE Collected: 01/12/2018 Status: F Source: [place] (DVT/PE) 7:17 PM [facility] REPOSITORY TYPE CODE TESTS RESULT OUT OF RANGE REFERENCE UNITS LAB L300.8000 0.27-0.49 FEU/ug/m Low D-DIMER < 0.27 QUANT Result Comment: NORMAL D-Dimer level (<0.50) indicates no DVT or PE. Performed By: #### L300.8000 #### [facility] [address] [place], [address] CBC AND DIFFERENTIAL Collected: 01/10/2018 Status: F Source: [place] 8:30 AM [facility] REPOSITORY TYPE CODE TESTS RESULT OUT OF REFERENCE UNITS RANGE LAB WBC 3.70-11.00 k/uL WBC 8.03 LAB RBC 3.90-5.20 m/uL RBC 4.68 LAB HGB 11.5-15.5 g/dL Hemoglobin 12.9 LAB HCT 36.0-46.0 % Hematocrit 41.2 LAB MCV 80.0-100.0 fL MCV 88.0 LAB MCH 26.0-34.0 pG MCH 27.6 LAB MCHC 30.5-36.0 g/dL MCHC 31.3 LAB RDWCV 11.5-15.0 % RDW-CV 12.8 LAB PLTCT 150-400 k/uL Platelet Count 336 LAB MPV 9.0-12.7 fL MPV 9.5 LAB ANEUT % Neut% 59.8 LAB AANEUT 1.45-7.50 k/uL Abs Neut 4.80 LAB ALYMP % Lymph% 32.6 LAB AALYMP 1.00-4.00 k/uL Abs Lymph 2.62 LAB AMONO % Coal% 5.1 LAB AAMONO <0.87 k/uL Abs Coal 0.41 LAB AEOS % Eosin% 2.1 LAB AAEOS <0.46 k/uL Abs Eosin 0.17 LAB ABASO % Baso% 0.4 LAB AABASO <0.11 k/uL Abs Baso 0.03 LAB AUNRBC 0 /100 WBC NRBCs 0.0 LAB ABNRBC <0.01 k/uL Absolute nRBC <0.01 LAB DTYP DTYPE Auto Diff Performed By: #### CBCDIF #### [facility] [address] [place], [place] [address] SED RATE WESTERGREN Collected: 01/10/2018 Status: F Source: [place] 8:30 AM [facility] REPOSITORY TYPE CODE TESTS RESULT OUT OF REFERENCE UNITS RANGE LAB WSR 0-20 mm/hr Sed Rate Westergren 12 Performed By: #### WSR, VITD, CMP, CRP, TSH, ENAID, HLAB27, ANAIFR #### [facility] [address] [place], [place] [address] VITAMIN D 25 HYDROXY Collected: 01/10/2018 Status: F Source: [place] 8:30 AM [facility] REPOSITORY TYPE CODE TESTS RESULT OUT OF REFERENCE UNITS RANGE LAB VITD 31.0-80.0 ng/mL Vitamin D 25 37.7 Hydroxy Result Comment: Classification of 25 [place] Vitamin D status: Insufficiency/Moderate Deficiency: < or = 30 ng/mL Sufficiency/Optimal Levels: 31 to 80 ng/mL Toxicity: > 100 ng/mL Test performed by chemiluminescent immunoassay. Performed By: #### WSR, VITD, CMP, CRP, TSH, ENAID, HLAB27, ANAIFR #### [facility] [address] [place], [place] [address] COMP METABOLIC PANEL Collected: 01/10/2018 Status: F Source: [place] 8:30 AM [facility] REPOSITORY TYPE CODE TESTS RESULT OUT OF REFERENCE UNITS RANGE LAB TP 6.3-8.0 g/dL Protein, Total 7.4 LAB ALB 3.9-4.9 g/dL Albumin 4.3 LAB CA 8.5-10.2 mg/dL Calcium, Total 9.5 LAB TBIL 0.2-1.3 mg/dL Bilirubin, Total 0.3 LAB ALKP 34-123 U/L Alkaline Phosphatase 75 LAB AST 13-35 U/L AST 22 LAB GLU 74-99 mg/dL Glucose 99 Result Comment: The [place] [employer] (ADA) provides guidance for cutoff values for fasting glucose and random glucose. The ADA defines fasting as no caloric intake for at least 8 hours. Fas ting plasma glucose results between 100 to 125 mg/dL indicate increased risk for diabetes (prediabetes). Fasting plasma glucose results greater than or equal to 126 mg/dL meet the criteria for diagnosis of diabetes. In the absence of unequivocal hyperglycemia, results should be confirmed by repeat testing. In a patient with classic symptoms of hyperglycemia or hyperglycemic crisis, random plasma glucose results greater than or equal to 200 mg/dL meet the criteria for diagnosis of diabetes. Reference: Standards of Medical Care in Diabetes 2016, [place] [employer]. Diabetes Care. 2016.39(Suppl 1). LAB BUN 7-21 mg/dL BUN 11 LAB CRET 0.58-0.96 mg/dL Creatinine 0.75 LAB NA 136-144 mmol/L Sodium 140 LAB K 3.7-5.1 mmol/L Potassium 3.8 LAB CL 97-105 mmol/L Chloride 101 LAB CO2 22-30 mmol/L CO2 23 LAB AGAP 9-18 mmol/L Anion Gap 16 LAB ALT 7-38 U/L ALT 20 LAB GFRAA eGFR- Amer. >60 LAB GFRNAA . eGFR-All Other Races >60 Result Comment: eGFR (Estimated GFR) Units of measure: mL/min/1.73 meters squared eGFR is derived from the reexpressed MDRD Study equation using the following parameters: serum creatinine, age, gender and race. The creatinine assay has been calibrated to be traceable to IDMS. An eGFR <60 mL/min/1.73m2 for >3 months is consistent with chronic kidney disease. Refer to KDOQI guidelines for clinical interpretation. In patients with unstable renal function, e.g. those with acute kidney injury, the eGFR may not accurately reflect actual GFR. Performed By: #### WSR, VITD, CMP, CRP, TSH, ENAID, HLAB27, ANAIFR #### [facility] [address] [place] [id number] C-REACTIVE PROTEIN Collected: 01/10/2018 Status: F Source: [place] 8:30 AM [facility] REPOSITORY TYPE CODE TESTS RESULT OUT OF REFERENCE UNITS RANGE LAB CRP <0.9 mg/dL High C-Reactive 0.9 Protein Performed By: #### WSR, VITD, CMP, CRP, TSH, ENAID, HLAB27, ANAIFR #### [facility] [address] [place], [place] [address] TSH Collected: 01/10/2018 Status: F Source: [place] 8:30 AM [facility] REPOSITORY TYPE CODE TESTS RESULT OUT OF RANGE REFERENCE UNITS LAB TSH 0.400-5.500 uU/mL TSH 1.030 Result Comment: If the patient is , TSH reference range varies by gestational period: First Trimester 0.100-2.500 uU/mL Second Trimester 0.200-3.000 uU/mL Third Trimester 0.300-3.000 uU/mL References: 1. Lucia, Ron Estrada, Rangel EK, et al. Management of Thyroid Dysfunction during and : An Endocrine Society Clinical Practice Guideline. J Clin Endocrinol Metab, 2012:97:0784-4762. 2. Chase OMREJON. Overview of thyroid disease in . UpToDate. 2016. Accessed on September 13, 2015. Performed By: #### WSR, VITD, CMP, CRP, TSH, ENAID, HLAB27, ANAIFR #### [facility] [address] [place], [place] [address] REINIER ANTIBODY PANEL Collected: 01/10/2018 Status: F Source: [place] 8:30 AM [facility] REPOSITORY TYPE CODE TESTS RESULT OUT OF REFERENCE UNITS RANGE LAB SMIB <1.0 AI Sm Antibody <0.2 Result Comment: NEGATIVE Negative: <1.0 AI Positive: >0.9 AI LAB RNPIB <1.0 AI JUVENILE OFFICER Antibody 0.2 Result Comment: NEGATIVE Negative: <1.0 AI Positive: >0.9 AI LAB SSAIB <1.0 AI SSA Antibody <0.2 Result Comment: NEGATIVE Negative: <1.0 AI Positive: >0.9 AI LAB SSBIB <1.0 AI SSB Antibody <0.2 Result Comment: NEGATIVE Negative: <1.0 AI Positive: >0.9 AI LAB CENTIB <1.0 AI Centromere <0.2 Result Comment: NEGATIVE Negative: <1.0 AI Positive: >0.9 AI LAB SCLIB <1.0 AI Scleroderma IgG Ab <0.2 Result Comment: NEGATIVE Negative: <1.0 AI Positive: >0.9 AI LAB JO1IB <1.0 AI ORQUIDEA 1 Antibody <0.2 Result Comment: NEGATIVE Negative: <1.0 AI Positive: >0.9 AI LAB RRNPIB <1.0 AI Ribosomal JUVENILE OFFICER <0.2 Result Comment: NEGATIVE Negative: <1.0 AI Positive: >0.9 AI LAB CHRMIB <1.0 AI Chromatin Antibody <0.2 Result Comment: NEGATIVE Negative: <1.0 AI Positive: >0.9 AI Performed By: #### WSR, VITD, CMP, CRP, TSH, ENAID, HLAB27, ANAIFR #### [facility] [address] [place], [place] [address] HLA B 27 Collected: 01/10/2018 Status: F Source: [place] 8:30 AM [facility] REPOSITORY TYPE CODE TESTS RESULT OUT OF REFERENCE UNITS RANGE LAB HLAB27 Negative HLA B 27 Negative Performed By: #### WSR, VITD, CMP, CRP, TSH, ENAID, HLAB27, ANAIFR #### [facility] [address] [place], [place] [address] IAN BY IFA W/REFLEX Collected: 01/10/2018 Status: F Source: [place] 8:30 AM [facility] REPOSITORY TYPE CODE TESTS RESULT OUT OF REFERENCE UNITS RANGE LAB ANASC Negative IAN Negative Result Comment: Normal range : negative at <1:80 serum dilution. Approximately 6% of patients with connective tissue diseases with low positive EIA values are negative by IFA. Recommend follow-up with specific antinuclear antibodies if clinically indicated. LAB RAFAEL Negative Negative IAN Titer Result Comment: Normal range : negative at <1:80 serum dilution. LAB ANAP IAN Not applicable Pattern for negative result. Performed By: #### WSR, VITD, CMP, CRP, TSH, ENAID, HLAB27, ANAIFR #### [facility] [address] [place], [place] [address] PROGRESS Observed: 01/06/2018 Status: COMPLETED Source: [place] 1:16 PM [facility] REPOSITORY HNO ID: [id number] Author: Carmen Doherty Service: (none) Author Type: Physician Type: Progress Notes Filed: 01/08/2018 5:54 AM Note Text: 32-year-old female Here for evaluation - used to see Dr. Ora Jin MD at ACTIVE PROBLEM LIST Hidradenitis - 09/26/2008 (Moderate priority) Comment: H/o infections dating back to age 14 +/- Anxiety State, Unspecified - 08/01/2008 (Moderate priority) Comment: Son with CP, worsening basline anxiety; + FH (mom) Worsens difficulty with stooling, re: hemorrhoids, fissure, bleeding Dysmetabolic Syndrome X - 02/17/2006 (Moderate priority) Comment: Gestational diabetes, diet-controlled; Impaired fasting glucose -- improved to <100 as of 2008 Unspecified Thrombosed Hemorrhoids - 03/24/2008 (Mild priority) Comment: Hemorrhoidectomy recommended by colorectal surgery, Dr. Daniels -- recurrent bleeding continues, as of 07/05 Impaired Fasting Glucose - 01/24/2008 (Mild priority) Unspecified Asthma(493.90) - 02/17/2006 (Mild priority) Bulging of lumbar intervertebral disc - 12/27/2017 Obesity, Class I, Bmi 30-34.9 - 10/06/2017 Endometriosis - 06/22/2016 Chronic Pelvic Pain in Female - 04/17/2015 Gross Hematuria - 12/25/2014 History of Kidney Stones - 12/25/2014 Straining On Urination - 12/25/2014 Hesitancy - 12/25/2014 Difficulty Voiding - 12/25/2014 Lumbosacral Neuritis - 09/11/2013 Anorectal Polyp - 10/12/2012 Palpitations - 05/24/2012 Menstrual Irregularity - 04/28/2012 Microhematuria - 01/12/2012 Flank Pain - 01/12/2012 Female Stress Incontinence - 01/12/2012 Migraine Without Aura, With Intractable Migraine, So Stated, Without Mention of Status Migrainosus - 10/20/2011 Monilial Vulvovaginitis - 06/10/2011 Calculus of Ureter - 04/06/2011 Seborrheic Dermatitis - 03/08/2011 Calculus of Kidney - 02/10/2011 Lyme Disease - 02/10/2011 Muscle Spasm - 12/04/2010 Adrenal Insufficiency (Hcc) Headache(784.0) - 04/10/2010 Lumbago - 04/10/2010 Pain in Joint, Lower Leg - 03/05/2010 Folliculitis - 12/21/2009 Acne Vulgaris: Inflammatory Grade III to IV - 09/08/2009 Scars: Acne and Excoriation--related - 09/08/2009 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 tretinoin (RETIN-A TOPICAL) Apply to affected area. potassium chloride (KLOR-CON 10) 10 mEq tablet Take 2 tablets by mouth once daily. atenolol (TENORMIN) 25 mg tablet TAKE 1 TABLET BY MOUTH ONCE DAILY. medroxyPROGESTERone (PROVERA, CYCRIN) 10 mg tablet Take 10 mg by mouth once daily. HYDROCORTISONE TOPICAL Apply to affected area. omeprazole (PRILOSEC) 20 mg capsule TAKE 1 CAPSULE BY MOUTH ONCE DAILY. lidocaine (XYLOCAINE) 2 % jelly Apply 1 application to affected area as directed. diazePAM (VALIUM) 5 mg tablet Take 1 tablet by mouth once daily as needed. dexamethasone (DECADRON) 1 mg tablet Take 1 mg by mouth once daily as needed. magnesium hydroxide (MILK OF MAGNESIA) 400 mg/5 mL suspension Take 5 mL by mouth once daily as needed. docusate sodium (COLACE) 100 mg capsule Take 100 mg by mouth twice daily as needed. Simethicone (GAS FREE EXTRA STRENGTH) 125 mg cap Take 1 tablet by mouth three times daily as needed. hydrocortisone (HEMORRHOIDAL HC) 25 mg suppository 1 Suppository by RECTAL route twice daily as needed. Insert one (1) in the rectum each night before bed. Tranexamic Acid 650 mg tab Take 2 tablets by mouth three times daily as needed (until bleeding slows or stops for up to 5 days). ondansetron (ZOFRAN, HYDROCHLORIDE,) 4 mg tablet Take 4 mg by mouth every 8 hours as needed. COMPOUNDED PRESCRIPTION Apply to affected area. Nifedipine 0.3% apply to anal area twice daily. albuterol 90 mcg/actuation Aero Inhale 2 Puffs as instructed every 4 hours as needed (shortness of breath). cetirizine 10 mg tablet Take 1 tablet by mouth once daily. MULTI-VITAMIN ORAL Take by mouth once daily. 2 tablets daily triamcinolone acetonide (KENALOG) 0.1 % cream Apply 1 application to affected area twice daily. (Patient not taking: Reported on 12/30/2017) diclofenac potassium (CATAFLAM) 50 mg tablet Take 50 mg by mouth three times daily. UPDATE: Last seen by Ms. Laurita Bañuelos, SHANK BREAKER on 10.06.2017. 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 Pt transferring care from Dr. Jin at , has an active Rx for Humira for SpA based on symptoms of IBS, joint pain, and an abnormal hip CT. CT in 2017 done locally and MRI in 2013. MRI (2013) showed subtle erosive changes bilaterally at the iliac side of the SI joints. Rest within normal limits. Suggestive of spondyloarthropathy. CT (2012) showed prominent subchondral sclerosis involving the iliac bones adjacent to the SI joints. Currently she experiences pain and stiffness in low back. Wakes up with morning stiffness improves with activity and a warm shower. Sleeps on a heating pad - back is discolored - erythema ab igne? Also has shoulder pain, costochondral pain, TMJ, right middle finger, swelling in ankles. Has a Humira pen at home. Two syringes. Also trochanteric bursitis of left hip - ICD9: 726.5, ICD10: M70.62. Ms. Burnham offered injection, pt prefers to treat conservatively for now. REVIEW OF SYSTEMS: January 06, 2018 CONSTITUTIONAL: Fever: Yes Fatigue: Yes Pain: Yes EYES: Pain: Yes Redness: No Loss of vision: No Dryness: Yes EAR, NOSE, MOUTH, THROAT: Nose bleeds: No Hearing loss: Yes Sores in mouth: Yes Swallowing problems: Yes Dry mouth: No CARDIOVASCULAR: Chest pain: No Swelling in the feet or legs: Yes RESPIRATORY: Shortness of breath: Yes Pain with breathing: Yes Chronic cough: No Coughing up blood: No , GASTROINTESTINAL: Heartburn: Yes Nausea: Yes Diarrhea: Yes Blood in the stool or black stool: Yes Abdominal pain: Yes GENITOURINARY: Blood in urine: Yes Pain or burning on urination: Yes MUSCULOSKELETAL: Joint pain: Yes Joint swelling: No Morning stiffness in joints: Yes Muscle weakness: Yes Back pain: Yes SKIN: Rashes: Yes Sun sensitive rashes: Yes Color changes of hands or feet in the cold: No Hair loss: Yes Nail changes: No NEUROLOGICAL: Headaches: Yes Dizziness: Yes Numbness or tingling: Yes Memory loss: Yes Seizures: No HEMATOLOGIC/LYMPHATIC: Swollen glands: Yes Anemia: No ALLERGIES/IMMUNOLOGIC: Allergies (other than medications): Yes Increased susceptibility to infection: No KNOWN MEDICAL CONDITIONS: Diabetes: No Thyroid disease: No High blood pressure: No PROMIS? (Patient-Reported Outcomes Measurement Information System) is a set of person-centered measures that evaluates and monitors physical, social, and emotional health. It can be used with the general population and with individuals living with chronic conditions. January 06, 2018 PROMIS 10: PHYSICAL AND MENTAL HEALTH: Global Physical Health T Score: 29.6 Global Physical Health Percentile: 2.07 Global Mental Health T Score: 36.3 Global Mental Health Percentile: 8.53 PROMIS PAIN, FATIGUE, FUNCTIONAL STATUS: PROMIS Pain Interference T Score: 62.66 PROMIS Pain Interference Percentile: 10.2 PROMIS Fatigue T Score: 69.32 PROMIS Fatigue Percentile: 2.68 PROMIS Functional Status T Score: 38.29 PROMIS Functional Status Percentile: 12.1 RAPID 3: DISEASE ACTIVITY: Weighed Score Levels: 0 - 1: Near Remission 1.3 - 2.0: Low Severity 2.3 - 4.0: Moderate Severity 4.3 - 10.0: High Severity SCORES: RAPID 3 Functional Status Subscore: 4 RAPID 3 Pain Tolerance Subscore: 9 RAPID 3 Global Estimate Subscore: 7 RAPID 3 Cumulative Score: 20 RAPID 3 Weighed Score: 6.7 RAPID 3: DISEASE ACTIVITY: Weighed Score Levels: 0 - 1: Near Remission 1.3 - 2.0: Low Severity 2.3 - 4.0: Moderate Severity 4.3 - 10.0: High Severity RAPID-3 Weighed Score 05/06/2016 10/06/2017 01/06/2018 RAPID 3 Weighed Score 6.4 6.3 6.7 HPI [address] saw Dr Charles in 2009 - +FMS, no autoimmune or autoinflammatory disease Saw Dr Kang in 2010 - +FMS, no autoimmune connective tissue disease Saw Dr. Lozano in 2017 - no evidence of an inflammatory condition Has been followed by Dr. Jin for 4 years but she is leaving and coming to [facility] so she needs a new financial adviser. Dr. Jin has diagnosed her with SpA and prescribed Humira. PRIOR EVALUATION Abnormal/Positive: mildly elevated crp of 1.6 with normal sedimentation rate (temp recorded at that visit was 99.9 F, repeat crp a few months later was normal), 08/2007 (outside hospital): crp of 9.57 (normal <6, was treated for kidney stones), kidney stone analysis demonstrated calcium oxalate stones, lumbar spine MRI which showed conjoined nerves (?) at L4-L5 and S1, [address] normal except for nonobstructing kidney stone and adnexal cyst ? Normal/Negative: IAN, REINIER, ds DNA, RF, ccp, wsr, PTH ,CK,UA, tsh, brain MRI, IgG subclasses, blood cultures, cxr, gammainterferon,mycoplasma urine culture, histo urinary ag,fungal battery, EBV and HIV. ? ? THERAPIES/MEDICATIONS TRIED Naproxen, Zanaflex, Tylenol, Cymbalta, Neurontin (ineffective), vicodin, meclofenamate, savella, prednisone (ineffective), Lyrica (ineffective), zoloft, Effexor, Tramadol, PT (for back). ? Prednisone for various indications (paresthesias, rash etc) has not helped with her fevers, fatigue, pain,weakness or malaise. It did help the paresthesia the one time she was on it for that reason (it resolved the numbness in the foot, she did not have problems with her hands at the time). Since last Rheum evaluation Dr Jin prescribed Humira but Kaya hasn't started it yet because at first she was sick, and now she wants to get established with a new rheum before she starts it in case there are problems. Humira has been prescribed for years of IBS symptoms, joint pain, abnormal CT (08/27/17 [facility] cortical enthesophytes at lateral right iliac wing, early degenerative changes of the bilateral SI joints, and mild joint space narrowing and periarticular illial sclerosis) She also has significant fatigue, sleep disturbance even with a heating pad. MRI scan in [facility] in Nov 2017 SI JOINTS: Normal appearing sacroiliac joints bilaterally. LUMBAR SPINE: Counting reference: ?Lumbosacral junction. ?For the purposes of this report, L4-5 is considered the level of the iliac crest and there are 5 lumbar-type vertebrae. ?Anatomic Variants: None. Alignment: ? ?Alignment is anatomic. Bone marrow signal/fracture: ?No evidence of pathologic marrow infiltration. ?No evidence of prior fracture. Conus: ?The conus is within normal limits of signal intensity and morphology terminating at the L1-L2 disc space level. Paraspinal soft tissues: ? Paraspinal soft tissues are within normal limits. Lower thoracic spine: ?Visualized lower thoracic canal and foramina are patent. T12-L1: ?Canal and foramina are patent. L1-L2: ? ?Canal and foramina are patent. L2-L3: ? ?Canal and foramina are patent. L3-L4: ? ?Minimal disc desiccation. ?Patent spinal canal and neural foramen. L4-L5: ? ?Minimal disc desiccation. ?Patent spinal canal and neural foramen. L5-S1: ? ?Small left extraforaminal disc protrusion effacing the fat along the ventral margin of the exiting left L5 nerve root (series 7, image 17). ?Patent spinal canal. Sacrum and iliac wings: ? The visualized sacrum and iliac wings are within normal limits. Social History Substance Use Topics - Smoking status: Never Smoker - Smokeless tobacco: Never Used - Alcohol use No Comment: Seldom PHYSICAL EXAM BP 125/67 (BP Site: Left Arm, BP Position: Sitting, BP Cuff Size: Regular Adult) Pulse 79 Temp 36.8 ?C (98.3 ?F) (Oral) Ht 157.3 cm (5' 1.93) Wt 81.9 kg (180 lb 8 oz) BMI 33.09 kg/m? General Appearance: no acute distress, AANDOx3 Skin: multiple scattered small (5 mm - 15 mm) shallow open ulcerated areas on neck, shoulders, upper chest, upper back. (see photos) Eyes: CAROLIN, no exudate Oral: no ulcers Neck: without masses Thyroid: not enlarged Lymph nodes: no cervical enlarged nodes Lungs: CTA bilat Cardiac: RRR Vascular: full pulses; radial, pedal Musculoskeletal: no tenderness, no synovitis. Does have +++ tenderness to palpation over left greater trochanter. Neurologic: cranial nerves 2-12 intact Gait: normal Motor: good strength, upper and lower, proximal and distal Sensory: grossly intact Right side of neck Right shoulder RAPID 3: DISEASE ACTIVITY: Weighed Score Levels: 0 - 1: Near Remission 1.3 - 2.0: Low Severity 2.3 - 4.0: Moderate Severity 4.3 - 10.0: High Severity RAPID-3 Weighed Score 05/06/2016 10/06/2017 RAPID 3 Weighed Score 6.4 6.3 Questionnaire scores: [facility] sleepiness scale: 12 (Normal < 10) MDQ (mood disorder questionnaire): 2 (Normal < 7) PHQ (patient health questionnaire): depression 7 (Normal < 5), anxiety 7 (Normal < 5) Fibromyalgia evaluation: Wide spread pain scale (WPI) 12, symptom severity (SS) 10 The patient fulfills the 2010 ACR criteria for fibromyalgia (WPI 7 AND SS 5) or (WPI 3-6 AND SS 9) with a WPI of 12 and SS of 10 See: Jean Paul F, Rogelio DJ, Ash MA, Nina DL, Emy RS, Alia P, Kanu , Kanu IJ, Lee DOUGLAS, Franklin MB. Arthritis Care Res. 2009;62(5):600-10. The [employer] preliminary diagnostic criteria for fibromyalgia and measurement of symptom severity. ASSESSMENT/PLAN: 1. 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 Jin at , has an active Rx for Humira for SpA based on symptoms of IBS, joint pain, and an abnormal hip CT. No s/s infection today, ok to start Humira. Please obtain CDs of prior CT and MRI scans. RTC 3 months to establish with new rheum staff physician. Will check labs. Did not want flu vaccine 2. Trochanteric bursitis of left hip - ICD9: 726.5, ICD10: M70.62 Offered injection, pt prefers to treat conservatively for now. She will contact me if symptoms worsen or fail to improve. 3. 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 This condition is associated with abnormal central processing of various peripheral stimuli including pain. Fibromyalgia is a musculoskeletal manifestation of this condition. It is a very common condition and is a diagnosis of inclusion rather than that of exclusion, i.e. it can co-exist with other concomitant rheumatologic and/or non-rheumatologic conditions. A meta- analysis from the [employer] in [place] suggested that concomitant fibromyalgia is common in patients with inflammatory arthritis, which can have a major impact on assessing disease severity and treatment decisions. The overall prevalence of fibromyalgia was 21% among patients with rheumatoid arthritis and 13% in ankylosing spondylitis, whereas the condition is reported in approximately 1% to 5% of the general population, according to Bob Camacho, [facility], PhD, of the [facility] in [place], and colleagues. The cornerstones of therapy for fibromyalgia (based on level 1 evidence) are regular aerobic exercise (stationary bike, pool therapy), optimal sleep, and optimal treatment of depression. Optimal quality sleep (especially deep sleep - phase 3/4 NREM) is important to achieve. If your sleep remains disturbed, you might need to have a sleep study to identify a primary sleep disorder that might need concomitant treatment. You might also benefit from relaxation techniques such as yoga, smith chi, acupuncture, or biofeedback to help deal better with stress. I emphasize that all the three aspects of the treatment (sleep, exercise, depression) be addressed simultaneously for maximum benefit and effective treatment of this condition. Doing one or the other will result in less than an optimal response to treatment. Medications sometimes used to treat fibromyalgia include those to help correct sleep disturbances and depression such as low dose antidepressants (Cymbalta or Savella) or non-habit forming sedatives and mild analgesics such as Tylenol. Lyrica is another drug that has been FDA approved for treatment of fibromyalgia. Narcotics have been found to be not only ineffective, but harmful and habit forming, and should be avoided. Therapy must be highly individualized. Most signs and symptoms of fibromyalgia can be managed by primary care providers under the guidance of a specialist. So please discuss the following with your primary care provider: - Aquatic therapy - Routine low grade aerobic exercise - Relaxation techniques / mindfulness / yoga /Smith Chi / Qi Gong - Improvement of sleep hygiene - Appropriately address depression/anxiety with SNRIs - Can use Gabapentin and Tricyclics for symptomatic benefit - Occupational therapy evaluation for desensitization therapy. For additional information please visit the following excellent resource that also outlines the management guidelines of fibromyalgia: [email or web address]/ F/U - 3 months (can see Ora Bañuelos APRN.SHANK BREAKER) I spent 60 minutes in the visit, with more than 50% of the total [id number] time of the visit in counseling / coordination of care. Carmen Doherty MD CNOV Observed: 01/06/2018 Status: COMPLETED Source: [place] 12:40 PM [facility] REPOSITORY Office Visit (RHEUMN) KAYA ARCE ([id number]) 1985 F Date Time Provider Department 01/06/18 12:40 PM CARMEN DOHERTY During your visit today, we recorded the following information about you: Temperature Pulse Blood pressure Weight 98.3 degrees 79/minute 125/67 81.9 kg Height 1.573 m Carmen Doherty MD 01/08/2018 5:54 AM Signed 32-year-old female Here for evaluation - used to see Dr. Ora Jin MD at ACTIVE PROBLEM LIST Hidradenitis - 09/26/2008 (Moderate priority) Comment: H/o infections dating back to age 14 +/- Anxiety State, Unspecified - 08/01/2008 (Moderate priority) Comment: Son with CP, worsening basline anxiety; + FH (mom) Worsens difficulty with stooling, re: hemorrhoids, fissure, bleeding Dysmetabolic Syndrome X - 02/17/2006 (Moderate priority) Comment: Gestational diabetes, diet-controlled; Impaired fasting glucose -- improved to <100 as of 2008 Unspecified Thrombosed Hemorrhoids - 03/24/2008 (Mild priority) Comment: Hemorrhoidectomy recommended by colorectal surgery, Dr. Daniels -- recurrent bleeding continues, as of 07/05 Impaired Fasting Glucose - 01/24/2008 (Mild priority) Unspecified Asthma(493.90) - 02/17/2006 (Mild priority) Bulging of lumbar intervertebral disc - 12/27/2017 Obesity, Class I, Bmi 30-34.9 - 10/06/2017 Endometriosis - 06/22/2016 Chronic Pelvic Pain in Female - 04/17/2015 Gross Hematuria - 12/25/2014 History of Kidney Stones - 12/25/2014 Straining On Urination - 12/25/2014 Hesitancy - 12/25/2014 Difficulty Voiding - 12/25/2014 Lumbosacral Neuritis - 09/11/2013 Anorectal Polyp - 10/12/2012 Palpitations - 05/24/2012 Menstrual Irregularity - 04/28/2012 Microhematuria - 01/12/2012 Flank Pain - 01/12/2012 Female Stress Incontinence - 01/12/2012 Migraine Without Aura, With Intractable Migraine, So Stated, Without Mention of Status Migrainosus - 10/20/2011 Monilial Vulvovaginitis - 06/10/2011 Calculus of Ureter - 04/06/2011 Seborrheic Dermatitis - 03/08/2011 Calculus of Kidney - 02/10/2011 Lyme Disease - 02/10/2011 Muscle Spasm - 12/04/2010 Adrenal Insufficiency (Hcc) Headache(784.0) - 04/10/2010 Lumbago - 04/10/2010 Pain in Joint, Lower Leg - 03/05/2010 Folliculitis - 12/21/2009 Acne Vulgaris: Inflammatory Grade III to IV - 09/08/2009 Scars: Acne and Excoriation--related - 09/08/2009 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 tretinoin (RETIN-A TOPICAL) Apply to affected area. potassium chloride (KLOR-CON 10) 10 mEq tablet Take 2 tablets by mouth once daily. atenolol (TENORMIN) 25 mg tablet TAKE 1 TABLET BY MOUTH ONCE DAILY. medroxyPROGESTERone (PROVERA, CYCRIN) 10 mg tablet Take 10 mg by mouth once daily. HYDROCORTISONE TOPICAL Apply to affected area. omeprazole (PRILOSEC) 20 mg capsule TAKE 1 CAPSULE BY MOUTH ONCE DAILY. lidocaine (XYLOCAINE) 2 % jelly Apply 1 application to affected area as directed. diazePAM (VALIUM) 5 mg tablet Take 1 tablet by mouth once daily as needed. dexamethasone (DECADRON) 1 mg tablet Take 1 mg by mouth once daily as needed. magnesium hydroxide (MILK OF MAGNESIA) 400 mg/5 mL suspension Take 5 mL by mouth once daily as needed. docusate sodium (COLACE) 100 mg capsule Take 100 mg by mouth twice daily as needed. Simethicone (GAS FREE EXTRA STRENGTH) 125 mg cap Take 1 tablet by mouth three times daily as needed. hydrocortisone (HEMORRHOIDAL HC) 25 mg suppository 1 Suppository by RECTAL route twice daily as needed. Insert one (1) in the rectum each night before bed. Tranexamic Acid 650 mg tab Take 2 tablets by mouth three times daily as needed (until bleeding slows or stops for up to 5 days). ondansetron (ZOFRAN, HYDROCHLORIDE,) 4 mg tablet Take 4 mg by mouth every 8 hours as needed. COMPOUNDED PRESCRIPTION Apply to affected area. Nifedipine 0.3% apply to anal area twice daily. albuterol 90 mcg/actuation Aero Inhale 2 Puffs as instructed every 4 hours as needed (shortness of breath). cetirizine 10 mg tablet Take 1 tablet by mouth once daily. MULTI-VITAMIN ORAL Take by mouth once daily. 2 tablets daily triamcinolone acetonide (KENALOG) 0.1 % cream Apply 1 application to affected area twice daily. (Patient not taking: Reported on 12/30/2017) diclofenac potassium (CATAFLAM) 50 mg tablet Take 50 mg by mouth three times daily. UPDATE: Last seen by Ms. Laurita Bañuelos, SHANK BREAKER on 10.06.2017. 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 Pt transferring care from Dr. Jin at , has an active Rx for Humira for SpA based on symptoms of IBS, joint pain, and an abnormal hip CT. CT in 2017 done locally and MRI in 2013. MRI (2013) showed subtle erosive changes bilaterally at the iliac side of the SI joints. Rest within normal limits. Suggestive of spondyloarthropathy. CT (2012) showed prominent subchondral sclerosis involving the iliac bones adjacent to the SI joints. Currently she experiences pain and stiffness in low back. Wakes up with morning stiffness improves with activity and a warm shower. Sleeps on a heating pad - back is discolored - erythema ab igne? Also has shoulder pain, costochondral pain, TMJ, right middle finger, swelling in ankles. Has a Humira pen at home. Two syringes. Also trochanteric bursitis of left hip - ICD9: 726.5, ICD10: M70.62. Ms. Burnham offered injection, pt prefers to treat conservatively for now. REVIEW OF SYSTEMS: January 06, 2018 CONSTITUTIONAL: Fever: Yes Fatigue: Yes Pain: Yes EYES: Pain: Yes Redness: No Loss of vision: No Dryness: Yes EAR, NOSE, MOUTH, THROAT: Nose bleeds: No Hearing loss: Yes Sores in mouth: Yes Swallowing problems: Yes Dry mouth: No CARDIOVASCULAR: Chest pain: No Swelling in the feet or legs: Yes RESPIRATORY: Shortness of breath: Yes Pain with breathing: Yes Chronic cough: No Coughing up blood: No , GASTROINTESTINAL: Heartburn: Yes Nausea: Yes Diarrhea: Yes Blood in the stool or black stool: Yes Abdominal pain: Yes GENITOURINARY: Blood in urine: Yes Pain or burning on urination: Yes MUSCULOSKELETAL: Joint pain: Yes Joint swelling: No Morning stiffness in joints: Yes Muscle weakness: Yes Back pain: Yes SKIN: Rashes: Yes Sun sensitive rashes: Yes Color changes of hands or feet in the cold: No Hair loss: Yes Nail changes: No NEUROLOGICAL: Headaches: Yes Dizziness: Yes Numbness or tingling: Yes Memory loss: Yes Seizures: No HEMATOLOGIC/LYMPHATIC: Swollen glands: Yes Anemia: No ALLERGIES/IMMUNOLOGIC: Allergies (other than medications): Yes Increased susceptibility to infection: No KNOWN MEDICAL CONDITIONS: Diabetes: No Thyroid disease: No High blood pressure: No PROMIS? (Patient-Reported Outcomes Measurement Information System) is a set of person-centered measures that evaluates and monitors physical, social, and emotional health. It can be used with the general population and with individuals living with chronic conditions. January 06, 2018 PROMIS 10: PHYSICAL AND MENTAL HEALTH: Global Physical Health T Score: 29.6 Global Physical Health Percentile: 2.07 Global Mental Health T Score: 36.3 Global Mental Health Percentile: 8.53 PROMIS PAIN, FATIGUE, FUNCTIONAL STATUS: PROMIS Pain Interference T Score: 62.66 PROMIS Pain Interference Percentile: 10.2 PROMIS Fatigue T Score: 69.32 PROMIS Fatigue Percentile: 2.68 PROMIS Functional Status T Score: 38.29 PROMIS Functional Status Percentile: 12.1 RAPID 3: DISEASE ACTIVITY: Weighed Score Levels: 0 - 1: Near Remission 1.3 - 2.0: Low Severity 2.3 - 4.0: Moderate Severity 4.3 - 10.0: High Severity SCORES: RAPID 3 Functional Status Subscore: 4 3 Pain Tolerance Subscore: 9 3 Global Estimate Subscore: 7 3 Cumulative Score: 20 3 Weighed Score: 6.7 RAPID 3: DISEASE ACTIVITY: Weighed Score Levels: 0 - 1: Near Remission 1.3 - 2.0: Low Severity 2.3 - 4.0: Moderate Severity 4.3 - 10.0: High Severity RAPID-3 Weighed Score 05/06/2016 10/06/2017 01/06/2018 RAPID 3 Weighed Score 6.4 6.3 6.7 HPI [address] saw Dr Charles in 2009 - +FMS, no autoimmune or autoinflammatory disease Saw Dr Kang in 2010 - +FMS, no autoimmune connective tissue disease Saw Dr. Lozano in 2016 - no evidence of an inflammatory condition Has been followed by Dr. Jin for 4 years but she is leaving and coming to [facility] so she needs a new financial adviser. Dr. Jin has diagnosed her with SpA and prescribed Humira. PRIOR EVALUATION Abnormal/Positive: mildly elevated crp of 1.6 with normal sedimentation rate (temp recorded at that visit was 99.9 F, repeat crp a few months later was normal), 08/2007 (outside hospital): crp of 9.57 (normal <6, was treated for kidney stones), kidney stone analysis demonstrated calcium oxalate stones, lumbar spine MRI which showed conjoined nerves (?) at L4-L5 and S1, [address] normal except for nonobstructing kidney stone and adnexal cyst ? Normal/Negative: IAN, REINIER, ds DNA, RF, ccp, wsr, PTH ,CK,UA, tsh, brain MRI, IgG subclasses, blood cultures, cxr, gammainterferon,mycoplasma urine culture, histo urinary ag,fungal battery, EBV and HIV. ? ? THERAPIES/MEDICATIONS TRIED Naproxen, Zanaflex, Tylenol, Cymbalta, Neurontin (ineffective), vicodin, meclofenamate, savella, prednisone (ineffective), Lyrica (ineffective), zoloft, Effexor, Tramadol, PT (for back). ? Prednisone for various indications (paresthesias, rash etc) has not helped with her fevers, fatigue, pain,weakness or malaise. It did help the paresthesia the one time she was on it for that reason (it resolved the numbness in the foot, she did not have problems with her hands at the time). Since last Rheum evaluation Dr Jin prescribed Humira but Kaya hasn't started it yet because at first she was sick, and now she wants to get established with a new rheum before she starts it in case there are problems. Humira has been prescribed for years of IBS symptoms, joint pain, abnormal CT (08/27/17 [facility] cortical enthesophytes at lateral right iliac wing, early degenerative changes of the bilateral SI joints, and mild joint space narrowing and periarticular illial sclerosis) She also has significant fatigue, sleep disturbance even with a heating pad. MRI scan in [facility] in Nov 2017 SI JOINTS: Normal appearing sacroiliac joints bilaterally. LUMBAR SPINE: Counting reference: ?Lumbosacral junction. ?For the purposes of this report, L4-5 is considered the level of the iliac crest and there are 5 lumbar-type vertebrae. ?Anatomic Variants: None. Alignment: ? ?Alignment is anatomic. Bone marrow signal/fracture: ?No evidence of pathologic marrow infiltration. ?No evidence of prior fracture. Conus: ?The conus is within normal limits of signal intensity and morphology terminating at the L1-L2 disc space level. Paraspinal soft tissues: ? Paraspinal soft tissues are within normal limits. Lower thoracic spine: ?Visualized lower thoracic canal and foramina are patent. T12-L1: ?Canal and foramina are patent. L1-L2: ? ?Canal and foramina are patent. L2-L3: ? ?Canal and foramina are patent. L3-L4: ? ?Minimal disc desiccation. ?Patent spinal canal and neural foramen. L4-L5: ? ?Minimal disc desiccation. ?Patent spinal canal and neural foramen. L5-S1: ? ?Small left extraforaminal disc protrusion effacing the fat along the ventral margin of the exiting left L5 nerve root (series 7, image 17). ?Patent spinal canal. Sacrum and iliac wings: ? The visualized sacrum and iliac wings are within normal limits. Social History Substance Use Topics - Smoking status: Never Smoker - Smokeless tobacco: Never Used - Alcohol use No Comment: Seldom PHYSICAL EXAM BP 125/67 (BP Site: Left Arm, BP Position: Sitting, BP Cuff Size: Regular Adult) Pulse 79 Temp 36.8 ?C (98.3 ?F) (Oral) Ht 157.3 cm (5' 1.93) Wt 81.9 kg (180 lb 8 oz) BMI 33.09 kg/m? General Appearance: no acute distress, AANDOx3 Skin: multiple scattered small (5 mm - 15 mm) shallow open ulcerated areas on neck, shoulders, upper chest, upper back. (see photos) Eyes: CAROLIN, no exudate Oral: no ulcers Neck: without masses Thyroid: not enlarged Lymph nodes: no cervical enlarged nodes Lungs: CTA bilat Cardiac: RRR Vascular: full pulses; radial, pedal Musculoskeletal: no tenderness, no synovitis. Does have +++ tenderness to palpation over left greater trochanter. Neurologic: cranial nerves 2-12 intact Gait: normal Motor: good strength, upper and lower, proximal and distal Sensory: grossly intact Right side of neck Right shoulder RAPID 3: DISEASE ACTIVITY: Weighed Score Levels: 0 - 1: Near Remission 1.3 - 2.0: Low Severity 2.3 - 4.0: Moderate Severity 4.3 - 10.0: High Severity RAPID-3 Weighed Score 05/06/2016 10/06/2017 RAPID 3 Weighed Score 6.4 6.3 Questionnaire scores: [facility] sleepiness scale: 12 (Normal < 10) MDQ (mood disorder questionnaire): 2 (Normal < 7) PHQ (patient health questionnaire): depression 7 (Normal < 5), anxiety 7 (Normal < 5) Fibromyalgia evaluation: Wide spread pain scale (WPI) 12, symptom severity (SS) 10 The patient fulfills the 2010 ACR criteria for fibromyalgia (WPI 7 AND SS 5) or (WPI 3-6 AND SS 9) with a WPI of 12 and SS of 10 See: Jean Paul F, Rogelio DJ, Ash MA, Nina DL, Emy RS, Alia P, Kanu , Kanu IJ, Lee DOUGLAS, Franklin ESPITIA. Arthritis Care Res. 2009;62(5):600-10. [employer] preliminary diagnostic criteria for fibromyalgia and measurement of symptom severity. ASSESSMENT/PLAN: 1. 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 Jin at , has an active Rx for Humira for SpA based on symptoms of IBS, joint pain, and an abnormal hip CT. No s/s infection today, ok to start Humira. Please obtain CDs of prior CT and MRI scans. RTC 3 months to establish with new rheum staff physician. Will check labs. Did not want flu vaccine 2. Trochanteric bursitis of left hip - ICD9: 726.5, ICD10: M70.62 Offered injection, pt prefers to treat conservatively for now. She will contact me if symptoms worsen or fail to improve. 3. 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 This condition is associated with abnormal central processing of various peripheral stimuli including pain. Fibromyalgia is a musculoskeletal manifestation of this condition. It is a very common condition and is a diagnosis of inclusion rather than that of exclusion, i.e. it can co-exist with other concomitant rheumatologic and/or non-rheumatologic conditions. A meta- analysis from the [facility] in [place] suggested that concomitant fibromyalgia is common in patients with inflammatory arthritis, which can have a major impact on assessing disease severity and treatment decisions. The overall prevalence of fibromyalgia was 21% among patients with rheumatoid arthritis and 13% in ankylosing spondylitis, whereas the condition is reported in approximately 1% to 5% of the general population, according to Bob Camacho, [facility], PhD, of the [facility] in [place], and colleagues. The cornerstones of therapy for fibromyalgia (based on level 1 evidence) are regular aerobic exercise (stationary bike, pool therapy), optimal sleep, and optimal treatment of depression. Optimal quality sleep (especially deep sleep - phase 3/4 NREM) is important to achieve. If your sleep remains disturbed, you might need to have a sleep study to identify a primary sleep disorder that might need concomitant treatment. You might also benefit from relaxation techniques such as yoga, smith chi, acupuncture, or biofeedback to help deal better with stress. I emphasize that all the three aspects of the treatment (sleep, exercise, depression) be addressed simultaneously for maximum benefit and effective treatment of this condition. Doing one or the other will result in less than an optimal response to treatment. Medications sometimes used to treat fibromyalgia include those to help correct sleep disturbances and depression such as low dose antidepressants (Cymbalta or Savella) or non-habit forming sedatives and mild analgesics such as Tylenol. Lyrica is another drug that has been FDA approved for treatment of fibromyalgia. Narcotics have been found to be not only ineffective, but harmful and habit forming, and should be avoided. Therapy must be highly individualized. Most signs and symptoms of fibromyalgia can be managed by primary care providers under the guidance of a specialist. So please discuss the following with your primary care provider: - Aquatic therapy - Routine low grade aerobic exercise - Relaxation techniques / mindfulness / yoga /Smith Chi / Qi Gong - Improvement of sleep hygiene - Appropriately address depression/anxiety with SNRIs - Can use Gabapentin and Tricyclics for symptomatic benefit - Occupational therapy evaluation for desensitization therapy. For additional information please visit the following excellent resource that also outlines the management guidelines of fibromyalgia: [email or web address] F/U - 3 months (can see Ora Bañuelos APRN.SHANK BREAKER) I spent 60 minutes in the visit, with more than 50% of the total [id number]-wq-[id number] time of the visit in counseling / coordination of care. Carmen Doherty MD Referring Provider: SELF [[id number]] Allergies As of Date: 01/06/2018 Noted Allergy Reaction BEES 06/18/2010 4 - Hives 7 - Swelling DOXYCYCLINE 09/26/2008 8 - GI Upset Comments: Not able to tolerate due to GI effects EUCALYPTUS 06/07/2007 Comments: tachycardia close airway FLEXERIL (CYCLOBENZAPRINE) 04/28/2012 1 - Mental Status Change Comments: Made patient feel worse than before KEFLEX (CEPHALEXIN) 05/09/2002 4 - Hives 10 - Anaphylaxis LATEX 08/15/2008 7 - Swelling MINOCYCLINE 03/07/2008 8 - GI Upset nitroglycerin suppositories [Othe*01/31/2008 NSAIDS (NON-STEROIDAL ANTI-INFLAM*2015 5 - Intolerance TIZANIDINE 12/04/2010 1 - Mental Status Change Comments: Low HR, cold and clammy (subjective only) VICODIN (HYDROCODONE-ACETAMINOPHE*03/31/2010 9 - Itching Date Reviewed: 01/06/2018 Reviewed by: Anne Cr MA - Fully Assessed Primary Visit Diagnosis:Inflammatory back pain [M54.89] Other Visit Diagnoses:Hidradenitis [L73.2] Fibromyalgia [M79.7] Order(s):IAN BY IFA WITH REFLEX [SQANAIFR] Order #: [id number] FUTURE ANTI REINIER ID [SQENAID] Order #: [id number] FUTURE SED RATE WESTERGREN [SQWSR] Order #: [id number] FUTURE C-REACTIVE PROTEIN (CRP) [SQCRP] Order #: [id number] FUTURE CBC + DIFF [SQCBCDIF] Order #: [id number] FUTURE COMP METABOLIC PANEL [SQCMP] Order #: [id number] FUTURE VITAMIN D 25 HYDROXY [SQVITD] Order #: [id number] FUTURE TSH BLD [SQTSH] Order #: [id number] FUTURE HLA B27 BLOOD [NOCJGZ89] Order #: [id number] FUTURE Prescriptions as of 01/06/2018 Sig: CHOLECALCIFEROL (VITAMIN D3) * Take 2,000 Units by mouth onc* RETIN-A TOPICAL Apply to affected area. POTASSIUM CHLORIDE ER 10 MEQ * Take 2 tablets by mouth once * ATENOLOL 25 MG TABLET TAKE 1 TABLET BY MOUTH ONCE D* MEDROXYPROGESTERONE 10 MG TAB* Take 10 mg by mouth once sienna* HYDROCORTISONE TOPICAL Apply to affected area. OMEPRAZOLE 20 MG CAPSULE,JACQUE* TAKE 1 CAPSULE BY MOUTH ONCE * LIDOCAINE 2 % MUCOSAL JELLY Apply 1 application to affect* DIAZEPAM 5 MG TABLET Take 1 tablet by mouth once d* DEXAMETHASONE 1 MG TABLET Take 1 mg by mouth once daily* MAGNESIUM HYDROXIDE 400 MG/5 * Take 5 mL by mouth once daily* DOCUSATE SODIUM 100 MG CAPSULE Take 100 mg by mouth twice da* SIMETHICONE 125 MG CAPSULE Take 1 tablet by mouth three * HYDROCORTISONE ACETATE 25 MG * 1 Suppository by RECTAL route* TRANEXAMIC ACID 650 MG TABLET Take 2 tablets by mouth three* ONDANSETRON HCL 4 MG TABLET Take 4 mg by mouth every 8 ho* COMPOUNDED PRESCRIPTION Apply to affected area. Nife* ALBUTEROL 90 MCG/ACTUATION AE* Inhale 2 Puffs as instructed * * CETIRIZINE 10 MG TABLET Take 1 tablet by mouth once d* * MULTI-VITAMIN ORAL Take by mouth once daily. 2 * TRIAMCINOLONE ACETONIDE 0.1 %* Apply 1 application to affect* Patient not taking: Reported on 12/30/2017 DICLOFENAC POTASSIUM 50 MG TA* Take 50 mg by mouth three florentin* Problem List As Of Date 01/06/2018 Noted Resolved PAIN IN JOINT, LOWER LEG [M25.569] INVALID FOR*01/24/2008 ASTHMA UNSPECIFIED [J45.909] INVALID FOR* Priority: Mild CHRONIC RHINITIS [J31.0] INVALID FOR* DYSMETABOLIC SYNDROME X [E88.81] INVALID FOR* Priority: Moderate More... IBS (IRRITABLE BOWEL SYNDROME) [K58.9] INVALID FOR* ANAL FISSURE [K60.2] BENIGN NEOPLASM LG BOWEL [D12.6] RECTAL AND ANAL HEMORRHAGE [K62.5] 08/01/2008 ESOPHAGEAL REFLUX [K21.9] DEVIATED NASAL SEPTUM [J34.2] INVALID FOR* POLYCYSTIC OVARIES [E28.2] INVALID FOR* Urinary calculus, unspecified [N20.9] INVALID FOR*10/06/2017 Priority: Mild More... IMPAIRED FASTING GLUCOSE [R73.01] INVALID FOR* Priority: Mild ABN GLUCOSE-ANTEPARTUM [O99.810] 08/01/2008 More... THROMBOS HEMORRHOIDS NOS [K64.5] INVALID FOR* Priority: Mild More... Routine general medical examination at a health*INVALID FOR*11/21/2011 Priority: Mild Class: Chronic More... ROUTINE MELT HELPER EXAMINATION [Z01.419] INVALID FOR*08/15/2008 Class: Chronic More... HX OF CERVICAL DYSPLASIA [Z87.410] INVALID FOR* More... ANXIETY STATE NOS [F41.1] INVALID FOR* Priority: Moderate More... PREV DELIVERY NOS-ANTEPART [O34.219] INVALID FOR* POOR GRTH-ANTEPART [O36.5990] INVALID FOR*09/26/2008 Routine gynecological examination [Z01.419] INVALID FOR*11/21/2011 Class: Chronic More... HIDRADENITIS [L73.2] INVALID FOR* Priority: Moderate More... 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 Pyoderma, unspecified [L08.0] INVALID FOR*05/21/2016 Pain in joint, lower leg [M25.569] INVALID FOR* Headache [R51] INVALID FOR* Lumbago [M54.5] INVALID FOR* Spasm of muscle [M62.838] INVALID FOR*10/06/2017 Adrenal insufficiency [E27.40] Muscle spasm [M62.838] INVALID FOR* Calculus of kidney [N20.0] INVALID FOR* Lyme disease [A69.20] INVALID FOR* Seborrheic Dermatitis [L21.8] INVALID FOR* Xerosis cutis [L85.3] INVALID FOR*05/21/2016 Calculus of ureter [N20.1] INVALID FOR* Pyoderma [L08.0] INVALID FOR*05/21/2016 Pruritus [L29.9] INVALID FOR*05/21/2016 Monilial vulvovaginitis [B37.3] INVALID FOR* Migraine without aura, with intractable migrain*INVALID FOR* Microhematuria [R31.29] INVALID FOR* Flank pain [R10.9] INVALID FOR* Female stress incontinence [N39.3] INVALID FOR* Menstrual irregularity [N92.6] INVALID FOR* Palpitations [R00.2] INVALID FOR* Backache, unspecified [M54.9] INVALID FOR*10/06/2017 Anorectal polyp [K62.0, K62.1] INVALID FOR* Low back pain [M54.5] INVALID FOR*10/06/2017 Buttock pain [M79.18] INVALID FOR*10/06/2017 Lumbosacral neuritis [M54.17] INVALID FOR* Gross hematuria [R31.0] INVALID FOR* History of kidney stones [Z87.442] INVALID FOR* Straining on urination [R39.16] INVALID FOR* Hesitancy [R39.11] INVALID FOR* Difficulty voiding [R39.198] INVALID FOR* Chronic pelvic pain in female [R10.2, G89.29] INVALID FOR* Endometriosis [N80.9] INVALID FOR* Obesity, Class I, BMI 30-34.9 [E66.9] INVALID FOR* Bulging of lumbar intervertebral disc [M51.26] INVALID FOR* Disposition: Return in about 3 months (around 04/08/2018). Follow-up and Disposition History Recorded Encounter Status:Closed by CARMEN DOHERTY MD on 01/08/18 CNNURSE Observed: 01/05/2018 Status: COMPLETED Source: [place] 1:30 PM [facility] REPOSITORY Nurse Visit ([facility]) KAYA ARCE ([id number]) 1985 F Date Time Provider Department 01/05/18 1:30 PM [facility] During your visit today, we recorded the following information about you: Miracle Hitchcock MA 01/05/2018 2:12 PM Signed Patient came in for a 30 day holter monitor. 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 Miracle Hitchcock MA Referring Provider: STERLING STERN [[id number]] Allergies As of Date: 01/05/2018 Noted Allergy Reaction BEES 06/18/2010 4 - Hives 7 - Swelling DOXYCYCLINE 09/26/2008 8 - GI Upset Comments: Not able to tolerate due to GI effects EUCALYPTUS 06/07/2007 Comments: tachycardia close airway FLEXERIL (CYCLOBENZAPRINE) 04/28/2012 1 - Mental Status Change Comments: Made patient feel worse than before KEFLEX (CEPHALEXIN) 05/09/2002 4 - Hives 10 - Anaphylaxis LATEX 08/15/2008 7 - Swelling MINOCYCLINE 03/07/2008 8 - GI Upset nitroglycerin suppositories [Othe*01/31/2008 NSAIDS (NON-STEROIDAL ANTI-INFLAM*2015 5 - Intolerance TIZANIDINE 12/04/2010 1 - Mental Status Change Comments: Low HR, cold and clammy (subjective only) VICODIN (HYDROCODONE-ACETAMINOPHE*03/31/2010 9 - Itching Date Reviewed: 12/30/2017 Reviewed by: Bailey Patterson Ma - Fully Assessed Reason for Visit: Allied Health Visit [5] Visit Diagnosis:Palpitations [R00.2] Prescriptions as of 01/05/2018 Sig: CHOLECALCIFEROL (VITAMIN D3) * Take 2,000 Units by mouth onc* RETIN-A TOPICAL Apply to affected area. POTASSIUM CHLORIDE ER 10 MEQ * Take 2 tablets by mouth once * TRIAMCINOLONE ACETONIDE 0.1 %* Apply 1 application to affect* Patient not taking: Reported on 12/30/2017 ATENOLOL 25 MG TABLET TAKE 1 TABLET BY MOUTH ONCE D* DICLOFENAC POTASSIUM 50 MG TA* Take 50 mg by mouth three florentin* MEDROXYPROGESTERONE 10 MG TAB* Take 10 mg by mouth once sienna* HYDROCORTISONE TOPICAL Apply to affected area. OMEPRAZOLE 20 MG CAPSULE,JACQUE* TAKE 1 CAPSULE BY MOUTH ONCE * LIDOCAINE 2 % MUCOSAL JELLY Apply 1 application to affect* DIAZEPAM 5 MG TABLET Take 1 tablet by mouth once d* DEXAMETHASONE 1 MG TABLET Take 1 mg by mouth once daily* MAGNESIUM HYDROXIDE 400 MG/5 * Take 5 mL by mouth once daily* DOCUSATE SODIUM 100 MG CAPSULE Take 100 mg by mouth twice da* SIMETHICONE 125 MG CAPSULE Take 1 tablet by mouth three * HYDROCORTISONE ACETATE 25 MG * 1 Suppository by RECTAL route* TRANEXAMIC ACID 650 MG TABLET Take 2 tablets by mouth three* ONDANSETRON HCL 4 MG TABLET Take 4 mg by mouth every 8 ho* COMPOUNDED PRESCRIPTION Apply to affected area. Nife* ALBUTEROL 90 MCG/ACTUATION AE* Inhale 2 Puffs as instructed * * CETIRIZINE 10 MG TABLET Take 1 tablet by mouth once d* * MULTI-VITAMIN ORAL Take by mouth once daily. 2 * Problem List As Of Date 01/05/2018 Noted Resolved PAIN IN JOINT, LOWER LEG [M25.569] INVALID FOR*01/24/2008 ASTHMA UNSPECIFIED [J45.909] INVALID FOR* Priority: Mild CHRONIC RHINITIS [J31.0] INVALID FOR* DYSMETABOLIC SYNDROME X [E88.81] INVALID FOR* Priority: Moderate More... IBS (IRRITABLE BOWEL SYNDROME) [K58.9] INVALID FOR* ANAL FISSURE [K60.2] BENIGN NEOPLASM LG BOWEL [D12.6] RECTAL AND ANAL HEMORRHAGE [K62.5] 08/01/2008 ESOPHAGEAL REFLUX [K21.9] DEVIATED NASAL SEPTUM [J34.2] INVALID FOR* POLYCYSTIC OVARIES [E28.2] INVALID FOR* Urinary calculus, unspecified [N20.9] INVALID FOR*10/06/2017 Priority: Mild More... IMPAIRED FASTING GLUCOSE [R73.01] INVALID FOR* Priority: Mild ABN GLUCOSE-ANTEPARTUM [O99.810] 08/01/2008 More... THROMBOS HEMORRHOIDS NOS [K64.5] INVALID FOR* Priority: Mild More... Routine general medical examination at a health*INVALID FOR*11/21/2011 Priority: Mild Class: Chronic More... ROUTINE MELT HELPER EXAMINATION [Z01.419] INVALID FOR*08/15/2008 Class: Chronic More... HX OF CERVICAL DYSPLASIA [Z87.410] INVALID FOR* More... ANXIETY STATE NOS [F41.1] INVALID FOR* Priority: Moderate More... PREV DELIVERY NOS-ANTEPART [O34.219] INVALID FOR* POOR GRTH-ANTEPART [O36.5990] INVALID FOR*09/26/2008 Routine gynecological examination [Z01.419] INVALID FOR*11/21/2011 Class: Chronic More... HIDRADENITIS [L73.2] INVALID FOR* Priority: Moderate More... 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 Pyoderma, unspecified [L08.0] INVALID FOR*05/21/2016 Pain in joint, lower leg [M25.569] INVALID FOR* Headache [R51] INVALID FOR* Lumbago [M54.5] INVALID FOR* Spasm of muscle [M62.838] INVALID FOR*10/06/2017 Adrenal insufficiency [E27.40] Muscle spasm [M62.838] INVALID FOR* Calculus of kidney [N20.0] INVALID FOR* Lyme disease [A69.20] INVALID FOR* Seborrheic Dermatitis [L21.8] INVALID FOR* Xerosis cutis [L85.3] INVALID FOR*05/21/2016 Calculus of ureter [N20.1] INVALID FOR* Pyoderma [L08.0] INVALID FOR*05/21/2016 Pruritus [L29.9] INVALID FOR*05/21/2016 Monilial vulvovaginitis [B37.3] INVALID FOR* Migraine without aura, with intractable migrain*INVALID FOR* Microhematuria [R31.29] INVALID FOR* Flank pain [R10.9] INVALID FOR* Female stress incontinence [N39.3] INVALID FOR* Menstrual irregularity [N92.6] INVALID FOR* Palpitations [R00.2] INVALID FOR* Backache, unspecified [M54.9] INVALID FOR*10/06/2017 Anorectal polyp [K62.0, K62.1] INVALID FOR* Low back pain [M54.5] INVALID FOR*10/06/2017 Buttock pain [M79.18] INVALID FOR*10/06/2017 Lumbosacral neuritis [M54.17] INVALID FOR* Gross hematuria [R31.0] INVALID FOR* History of kidney stones [Z87.442] INVALID FOR* Straining on urination [R39.16] INVALID FOR* Hesitancy [R39.11] INVALID FOR* Difficulty voiding [R39.198] INVALID FOR* Chronic pelvic pain in female [R10.2, G89.29] INVALID FOR* Endometriosis [N80.9] INVALID FOR* Obesity, Class I, BMI 30-34.9 [E66.9] INVALID FOR* Bulging of lumbar intervertebral disc [M51.26] INVALID FOR* Visit Notes: >> Miracle Hitchcock MA WedJan 05, 2018 2:10 PM Status: Signed Patient came in for a 30 day holter monitor. 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 Miracle Hitchcock MA Encounter Status:Closed by MIRACLE HITCHCOCK MA on 01/05/18 KNEE 4 OR MORE Observed: 01/04/2018 Status: F Source: [place] VIEWS 4:36 PM [facility] REPOSITORY [facility] Imaging Services [address] [place] [address] Knee 4 or More Views MR#: [id number] Acct: [id number] Name: KAYA ARCE Rep #: [id number] : 1985 F 32 From: Jose Antonio Colin MD PCP: Rudy Curran DO Status: REG CLI Study: Knee 4 or More Views Date of Exam: 01/04/18 Exam# [id number] Ordering Dr: Rudy Curran DO STUDY: X-RAY - RIGHT KNEE REASON FOR EXAM: Female, 32 years old. Injury. Pain TECHNIQUE: 4 view(s) of the knee. COMPARISON: None. FINDINGS: Normal visualized distal femur. Normal visualized proximal tibia and fibula. Normal proximal tibiofibular articulation. Normal medial femorotibial compartment. Normal lateral femorotibial compartment. Normal patellofemoral articulation. The soft tissue structures are unremarkable. RAD/Knee 4 or More Views IMPRESSION: Normal x-ray examination of the knee. No acute fractures. No knee joint effusion. Electronically Signed: Jose Antonio Colin MD at 4:46 EDT Tel , Service support , CC: Rudy Curran DO Profiler Hand: Signed FINGER(S) MIN 2 VIEWS Observed: 01/04/2018 Status: F Source: [place] 4:36 PM [facility] REPOSITORY [facility] Imaging Services [address] [place] [address] Finger(s) Min 2 Views MR#: [id number] Acct: [id number] Name: KAYA ARCE Rep #: [id number] : 1985 F 32 From: Jose Antonio Colin MD PCP: Rudy Curran DO Status: REG CLI Study: Finger(s) Min 2 Views Date of Exam: 01/04/18 Exam# [id number] Ordering Dr: Rudy Curran DO STUDY: X-RAY - LEFT HAND, ATTENTION INDEX FINGER REASON FOR EXAM: Female, 32 years old. Pain TECHNIQUE: 3 view(s) of the finger were obtained. COMPARISON: None. FINDINGS: Normal metacarpal head. Normal metacarpophalangeal joint. Normal proximal phalanx. Normal middle phalanx. Normal distal phalanx. Normal proximal interphalangeal joint. Normal distal interphalangeal joint. RAD/Finger(s) Min 2 Views IMPRESSION: Normal x-ray examination of the finger. No fracture. No bone or joint disease Electronically Signed: Jose Antonio Colin MD at 6:18 EDT Tel , Service support , CC: Rudy Curran DO Profiler Hand: Signed CNOV Observed: 12/30/2017 Status: COMPLETED Source: [place] 8:00 AM [facility] REPOSITORY Office Visit ([facility]NMED) KAYA ARCE ([id number]) 1985 F Date Time Provider Department 12/30/17 8:00 AM ESAU ACEVEDO (PAC) SPNMED During your visit today, we recorded the following information about you: Pulse Blood pressure Weight Height 85/minute 106/72 82.6 kg 1.6 m Last Period 12/03/17 Esau Acevedo, TOÑITO 12/30/2017 11:59 AM Signed Esau Acevedo PA-C [facility] [address] [address] 12/30/2017 ASSESSMENT AND PLAN: Assessment : Encounter Diagnosis ICD-10-CM 1. 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 Lumbosacral neuritis M54.17 3. Bulging of lumbar intervertebral disc M51.26 Discussion: Ms. Arec Is a 32-year-old female here for evaluation of low back, left buttock and leg pain, and left lateral thigh pain since a fall she sustained in July 2017 negotiating her bathtub at home. She states she fell on her right side but has had left-sided symptoms ever since. She was evaluated by her primary care who sent her for physical therapy and she has been for orthopedic consultation and has a financial adviser also involved in her care. Patient has IBS and states that she has been diagnosed with ankylosing spondylitis by rheumatology. Her HLA-B27 is negative and lumbar x-rays and MRI do not indicate findings typical of . Patient describes a painful bulge or mass on her left lateral proximal hip since her fall and she has undergone MRI scans of lumbar and left hip. Left hip MRI is read as normal. Lumbar MRI showed small disc protrusion on the left laterally possibly touching/affecting L5. Her exam is mildly suggestive of left L5 nerve root sensory disturbance. Motor testing is not consistent with focal lumbar nerve root dysfunction. There is hypersensitivity to palpation of soft tissues at the lumbosacral junction and over posterior pelvic bony prominences bilaterally. There is no tenderness over greater trochanters on either side. I did not detect obvious asymmetric mass on the left lateral hip in comparison to the right side. Although symptoms today appear to be somewhat out of proportion to MRI and x-ray findings, it does look like there is some correlation with her left leg symptoms and the L5 nerve root. For this, I would recommend diagnostic selective nerve root block at L5 on the left side. I discussed this with her in detail but she wants to hold off on consideration of this until after she speaks further about it with her financial adviser. At the end of the visit, she persisted with further questions regarding the findings on the hip. I did take the time to review the scan pictures and radiologist's reading with her in detail during the visit. Patient also indicates that there is a study [?ultrasound] that was done in [place], [place] that showed a mass in the soft tissue of her left hip but this is not available for review. I understood that the ultrasound study in question was done prior to what she described as spontaneous resolution of the left hip mass early in the visit. At that point, she had stated that the left hip mass had resolved on its own over the past few weeks but at the end of the visit, she said that she still feels it there and that it bothers her. Since the left hip MRI scan findings were normal and the patient has been evaluated by orthopedics for this previously, I am recommending that she follow-up with orthopedics for this separate issue. The patient further questioned about her bowel and bladder incontinence issues considering that they were related to the low back. I took additional time to review the MRI lumbar (pictures and report) in detail with her. The scan shows completely normal central canal with no impingement on any nerves that would have a relationship to bowel or bladder function. Plan : REFERAL FOR SERVICES: -Consult to Pain Anesthesia: Type of injection requested: Lumbar transforaminal epidural steroid injection left L5. The purpose will be for both diagnostic and therapeutic purposes. The patient is instructed to pay attention to the amount of pain during the anesthetic phase, and during that time to perform the activities that typically exacerbate the pain to determine what percentage of relief is gained. The patient is instructed that the steroid phase of the injection may take up to a week or more to provide relief, and to pay attention to the percentage of relief obtained during the steroid phase. If the steroid phase gives significant pain relief, the procedure can be repeated. ACTIVITY RECOMMENDATIONS: -The patient is encouraged to avoid bed rest and maintain normal activity. -The patient advised to avoid prolonged sitting. FOLLOW-UP: -The patient is instructed to follow up after left L5 injections are complete. ADDITIONAL DISCUSSION: -I discussed signs and symptoms of cauda equina syndrome were discussed in detail. The patient is advised to seek emergent care immediately should they occur but I reviewed her MRI with her in detail to show her that there is no compressive lesion at all that would currently cause suspicion for this syndrome. This document has been created with the use of voice recognition technology. It may contain inaccuracies: (e.g. misspellings, inaccurate syntax or word sense) that have escaped review. Time spent: 65 minutes with greater than 50% in face to face consultation with the patient. cc: Cherry Veloz PA-C [address] [facility] [address] Results of consultation to be transmitted via electronic medical record for those providers who practice within [facility] or with access to [facility] via [facility], or via letter. CHIEF COMPLAINT: Back pain < Leg symptoms Left > Right HPI: Her back pain is at 4/10 and is constant. The back pain is located in lower back and gluteal region and is described as sharp, stabbing, shooting, and burning. Her leg symptoms are at 6/10 and are constant. This is located in both thighs, below the left knee and in the left foot and is described as stinging, shooting, and burning. Symptoms are exacerbated by twisting, bending andSitting/standing for long periods of timeand improved by laying down, and heat. She states that these symptoms began 4 years ago, with a recent fall in July 2017 in bathtuband are related to a fall x 4 years ago with recent fall as mentioned above. History of bowel or bladder dysfunction: Yes, pt states having both bowel and bladder incontinence. Pt states having pelvic floor issues as well as Crohns and IBS History of previous spinal surgery: No History of spinal trauma: Yes, Zain fx year of 1999 Work Status: currently unemployed NON-OPERATIVE CARE: Medication(s): She has tried the following for relief of her symptoms: Medrol DosPak Voltaren Physical Therapy: She has had physical therapy for her current symptoms. The patient is currently attending PT sessions. The therapy did not provide any significant relief. Spinal Injections: She has not gotten prior spinal injections. Other: None Current Outpatient Prescriptions: potassium chloride (KLOR-CON 10) 10 mEq tablet Take 2 tablets by mouth once daily. Disp: 60 tablet Rfl: 11 triamcinolone acetonide (KENALOG) 0.1 % cream Apply 1 application to affected area twice daily. Disp: 454 g Rfl: 0 atenolol (TENORMIN) 25 mg tablet TAKE 1 TABLET BY MOUTH ONCE DAILY. Disp: 30 tablet Rfl: 11 diclofenac potassium (CATAFLAM) 50 mg tablet Take 50 mg by mouth three times daily. Disp: Rfl: medroxyPROGESTERone (PROVERA, CYCRIN) 10 mg tablet Take 10 mg by mouth once daily. Disp: Rfl: HYDROCORTISONE TOPICAL Apply to affected area. Disp: Rfl: omeprazole (PRILOSEC) 20 mg capsule TAKE 1 CAPSULE BY MOUTH ONCE DAILY. Disp: 30 capsule Rfl: 1 lidocaine (XYLOCAINE) 2 % jelly Apply 1 application to affected area as directed. Disp: 1 Tube Rfl: 1 diazePAM (VALIUM) 5 mg tablet Take 1 tablet by mouth once daily as needed. Disp: 30 tablet Rfl: 5 dexamethasone (DECADRON) 1 mg tablet Take 1 mg by mouth once daily as needed. Disp: Rfl: 0 magnesium hydroxide (MILK OF MAGNESIA) 400 mg/5 mL suspension Take 5 mL by mouth once daily as needed. Disp: 30 mL Rfl: 0 docusate sodium (COLACE) 100 mg capsule Take 100 mg by mouth twice daily as needed. Disp: Rfl: Simethicone (GAS FREE EXTRA STRENGTH) 125 mg cap Take 1 tablet by mouth three times daily as needed. Disp: 30 capsule Rfl: 0 hydrocortisone (HEMORRHOIDAL HC) 25 mg suppository 1 Suppository by RECTAL route twice daily as needed. Insert one (1) in the rectum each night before bed. Disp: 60 Suppository Rfl: 4 Tranexamic Acid 650 mg tab Take 2 tablets by mouth three times daily as needed (until bleeding slows or stops for up to 5 days). Disp: 30 tablet Rfl: 0 ondansetron (ZOFRAN, HYDROCHLORIDE,) 4 mg tablet Take 4 mg by mouth every 8 hours as needed. Disp: Rfl: COMPOUNDED PRESCRIPTION Apply to affected area. Nifedipine 0.3% apply to anal area twice daily. Disp: 30 g Rfl: 5 albuterol 90 mcg/actuation Aero Inhale 2 Puffs as instructed every 4 hours as needed (shortness of breath). Disp: 1 Inhaler Rfl: 0 cetirizine 10 mg tablet Take 1 tablet by mouth once daily. Disp: 30 tablet Rfl: 3 MULTI-VITAMIN ORAL Take by mouth once daily. 2 tablets daily Disp: Rfl: No current facility-administered medications for this visit. Allergies: Bees; Doxycycline; Eucalyptus; Flexeril [Cyclobenzaprine]; Keflex [Cephalexin]; Latex; Minocycline; Nitroglycerin Suppositories [Other]; Nsaids (Non-Steroidal Anti-Inflammatory Drug); Tizanidine; Vicodin [Hydrocodone-Acetaminophen] PAST MEDICAL HISTORY Diagnosis Date - Abnormal glandular Papanicolaou smear of cervix Abn. Pap smear (cervix) - Abnormal maternal glucose tolerance, antepartum 2003 diet controlled - Allergic rhinitis, cause unspecified Allergic rhinitis - Anal fissure - Ankylosis spondylitis - Back pain - Calculus of kidney 2007 4 stones, followed by Dr. 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 [facility] - Unspecified asthma(493.90) PAST SURGICAL HISTORY Procedure Laterality Date - CERVIX UTERI CONIZA LP ELCTRO EXCI 2001 LEEP-Cervix - DELIVERY ONLY 2003 , low cervical - COLONOSCOP W/ OR W/O [facility] SPEC 1986 Colonoscopy - COLONOSCOP W/ OR W/O BRS SPEC 06/20/2014 Colonoscopy - ESWL X1 - F SALPINGO-OOPHORECTOMY 08/21/14 LEFT only - PAST SURGICAL HISTORY OF WISDOM TEETH - PAST SURGICAL HISTORY OF < 1 yr old bilat inguinal hernia repair - SIGMOIDOSCOPY FLEX DIAG Sigmoidoscopy, flexible Social History Marital status: Single Spouse name: Years of education: 13 Number of children: 1 Occupational History Occupation Employer Comment 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[employer] Social History Main Topics Smoking status: Never Smoker Smokeless tobacco: Never Used Alcohol use: No Comment: Seldom Drug use: No Sexual activity: Yes Partners with: Male control/protection: Condom Comment: no tatoos, no transfusions Other Topics Concern Service No Blood Transfusions No Caffeine Concern No Occupational Exposure No Hobby Hazards No Sleep Concern Yes Stress Concern Yes Weight Concern Yes Special Diet Yes Back Care Yes Exercise Yes Bike Helmet Yes Seat Belt Yes Self-Exams Yes Social History Narrative Single 1 son age 2 Lives in [facility] with son, from [facility] 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 care of 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 who has 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 (he gets social security, and 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) FAMILY HISTORY Problem Relation Age of Onset - Prostate Cancer Maternal Grandfather - Cancer Maternal Grandfather leukemia - other (parkinsons) Maternal Grandfather - Coronary Artery Disease Paternal Grandfather 48 suddenly - Diabetes Paternal Grandmother - Lipids Mother - Osteoporosis Mother - other (CHF) Mother - Lipids Father - Hypertension Father - other (kidney stones) Father - other (CHF) Father - other (spastic 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) Son - Breast Cancer Maternal Grandmother age 90 - other (down syndrome) Paternal Uncle REVIEW OF SYSTEMS: Constitutional: (+) Fever (-) Night Sweats (+) Weight Gain (-) Weight Loss (+) Fatigue Cardiovascular: (-) Chest Pain (+) Palpitations (+) Lightheadedness (+) Swelling of Ankles (-) Hx Heart Surgery Respiratory: (+) Shortness of Breath (+) Cough (-) Wheezing (+) Snoring Gastrointestinal: (+) Incontinence (+) Abdominal Pain (+) Diarrhea (-) Constipation (-) Nausea/Vomiting (+) Heart Burn Endocrine: (-) Thyroid Disorder (-) Diabetes Hematologic: (-) Prolonged Bleeding (-) Easy Bruising Genitourinary: (+) Incontinence (+) Frequency (+) Urinary Urgency Skin: (+) Rashes (+) Itching (-) Other Lesions Neurologic: (-) Headache (+) Double Vision (-) Confusion (-) Paralysis (+) Vertigo (-) Syncope Psychiatric: (+) Depression (+) Anxiety (-) Delusions (-) Hallucinations (-) Suicidal Thoughts PHYSICAL EXAM: Blood pressure 106/72, pulse 85, height 160 cm (5' 3), weight 82.6 kg (182 lb), last menstrual period 12/03/2017, SpO2 99 %. Body mass index is 32.24 kg/m?. General: Patient is a(n) average historian. The patient appears approximately her stated age and is sitting comfortably in the examining room. The patient is average height in stature and is obese in appearance. She has no difficulty arising from a sitting position. She does have difficulty acquiring a full, upright position when standing. Station and Gait: favoring the left lower extremity, wide- based and slow pace The patient is able to but has difficulty in attempting to walk in a tandem gait. MENTAL STATUS EXAMINATION: The patient was well groomed and casually attired. The patient had fair eye contact and rapport was difficult to establish. The patient appeared to be alert and oriented in all spheres. The patient's motivation for treatment was judged based on today's encounter to be fair. LUMBAR SPINE: Skin: Normal-no rashes, bruises, lesions, or signs of localized trauma., Skin color, texture and turgor normal. Lumbar Lordosis: Normal RANGE OF MOTION: Flexion: abnormal, decreased motion below expected for age and weight Pain: Yes Extension: abnormal, decreased motion below expected for age and weight Pain: Yes Lateral Bending: Right normal, as expected for age and weight Pain: Yes Left normal, as expected for age and weight Pain: Yes PALPATION TENDERNESS: Severe at lumbar region, posterior pelvis, gluteal region and soft tissues Hyperesthesia present: Yes, in the following locations: lumbar region, posterior pelvis, gluteal region and soft tissues. Regional symptoms present: No Increased pain with axial loading: Yes Distraction: Abnormal foot dorsiflexor strength appeared to be normal with legs in extension and diminished with knees flexed. Pain responses: elevated NEUROLOGIC EXAM: MOTOR: Walk on Toes: Right: Yes Left: Yes Walk on Heels: Right: Yes, but poorly Left: Yes, but poorly Requires verbal cues to minimize cog-wheel or give-way resistance: Yes. Very detailed and specific instructions were needed in order to achieve dorsiflexion and plantar flexion range of motion on the left side. Patient seemed to require specific guidance as to how to dorsiflex and plantarflex the left foot. Hip Flexor R: 5/5 L: 4/5 Hip Adductor R: 5/5 L: 5/5 Hip Abductor R: 5/5 L: 5/5 Knee Extension R: 5/5 L: 5/5 Foot Dorsiflexion R: 5/5 L: 4/5 Foot Plantar Flexion R: 5/5 L: 4/5 Ext Hallicus Longus R: 5/5 L: 5/5 Toe Extensors R: 4/5 L: 4/5 SENSATION to Light Touch: Lumbar: L5: R: Normal, L: Abnormal: Noted findings are decreased sensation to light touch within this dermatome. REFLEXES: Lower Extremity: All Lower Extremity reflexes symmetrically normal. Clonus: R: 0 beats/Normal L: 0 beats/Normal Babinski Sign: Negative bilaterally. Upper Extremity: All Upper Extremity reflexes symmetrically normal. Hope's Sign: Negative bilaterally. VASCULAR: Skin appearance: Right: Warm/pink Left: Warm/pink Capillary refill: Right: brisk Left: brisk ADDITIONAL MUSCULOSKELETAL EXAM: HIP/PELVIS EXAM: Motion restriction: Right: No Left: Yes Pain: Right: No Left: Yes Greater Trochanteric pain: Right: No Left: No Tenderness over the PSIS: Right: Yes Left: Yes SPECIAL TESTS: Straight Leg Raise: negative bilaterally Contralateral Straight Leg Raise: negative bilaterally IMAGING STUDIES: See above for description of MRI scans lumbar and left hip Referring Provider: CHERRY VELOZ) [[id number]] Allergies As of Date: 12/30/2017 Noted Allergy Reaction BEES 06/18/2010 4 - Hives 7 - Swelling DOXYCYCLINE 09/26/2008 8 - GI Upset Comments: Not able to tolerate due to GI effects EUCALYPTUS 06/07/2007 Comments: tachycardia close airway FLEXERIL (CYCLOBENZAPRINE) 04/28/2012 1 - Mental Status Change Comments: Made patient feel worse than before KEFLEX (CEPHALEXIN) 05/09/2002 4 - Hives 10 - Anaphylaxis LATEX 08/15/2008 7 - Swelling MINOCYCLINE 03/07/2008 8 - GI Upset nitroglycerin suppositories [Othe*01/31/2008 NSAIDS (NON-STEROIDAL ANTI-INFLAM*2015 5 - Intolerance TIZANIDINE 12/04/2010 1 - Mental Status Change Comments: Low HR, cold and clammy (subjective only) VICODIN (HYDROCODONE-ACETAMINOPHE*03/31/2010 9 - Itching Date Reviewed: 12/30/2017 Reviewed by: Bailey Patterson Ma - Fully Assessed Reason for Visit: New Patient [172] Primary Visit Diagnosis:Intervertebral disc disorder with radiculopathy of lumbar region [M51.16] Other Visit Diagnoses:Lumbosacral neuritis [M54.17] Bulging of lumbar intervertebral disc [M51.26] Order(s):CONSULT TO SPINE INTERVENTION [[id number]] Order #: [id number]: 1 Prescriptions as of 12/30/2017 Sig: CHOLECALCIFEROL (VITAMIN D3) * Take 2,000 Units by mouth onc* RETIN-A TOPICAL Apply to affected area. POTASSIUM CHLORIDE ER 10 MEQ * Take 2 tablets by mouth once * ATENOLOL 25 MG TABLET TAKE 1 TABLET BY MOUTH ONCE D* MEDROXYPROGESTERONE 10 MG TAB* Take 10 mg by mouth once sienna* HYDROCORTISONE TOPICAL Apply to affected area. OMEPRAZOLE 20 MG CAPSULE,JACQEU* TAKE 1 CAPSULE BY MOUTH ONCE * LIDOCAINE 2 % MUCOSAL JELLY Apply 1 application to affect* DIAZEPAM 5 MG TABLET Take 1 tablet by mouth once d* DEXAMETHASONE 1 MG TABLET Take 1 mg by mouth once daily* MAGNESIUM HYDROXIDE 400 MG/5 * Take 5 mL by mouth once daily* DOCUSATE SODIUM 100 MG CAPSULE Take 100 mg by mouth twice da* SIMETHICONE 125 MG CAPSULE Take 1 tablet by mouth three * HYDROCORTISONE ACETATE 25 MG * 1 Suppository by RECTAL route* TRANEXAMIC ACID 650 MG TABLET Take 2 tablets by mouth three* ONDANSETRON HCL 4 MG TABLET Take 4 mg by mouth every 8 ho* COMPOUNDED PRESCRIPTION Apply to affected area. Nife* ALBUTEROL 90 MCG/ACTUATION AE* Inhale 2 Puffs as instructed * * CETIRIZINE 10 MG TABLET Take 1 tablet by mouth once d* * MULTI-VITAMIN ORAL Take by mouth once daily. 2 * TRIAMCINOLONE ACETONIDE 0.1 %* Apply 1 application to affect* Patient not taking: Reported on 12/30/2017 DICLOFENAC POTASSIUM 50 MG TA* Take 50 mg by mouth three florentin* Problem List As Of Date 12/30/2017 Noted Resolved PAIN IN JOINT, LOWER LEG [M25.569] INVALID FOR*01/24/2008 ASTHMA UNSPECIFIED [J45.909] INVALID FOR* Priority: Mild CHRONIC RHINITIS [J31.0] INVALID FOR* DYSMETABOLIC SYNDROME X [E88.81] INVALID FOR* Priority: Moderate More... IBS (IRRITABLE BOWEL SYNDROME) [K58.9] INVALID FOR* ANAL FISSURE [K60.2] BENIGN NEOPLASM LG BOWEL [D12.6] RECTAL AND ANAL HEMORRHAGE [K62.5] 08/01/2008 ESOPHAGEAL REFLUX [K21.9] DEVIATED NASAL SEPTUM [J34.2] INVALID FOR* POLYCYSTIC OVARIES [E28.2] INVALID FOR* Urinary calculus, unspecified [N20.9] INVALID FOR*10/06/2017 Priority: Mild More... IMPAIRED FASTING GLUCOSE [R73.01] INVALID FOR* Priority: Mild ABN GLUCOSE-ANTEPARTUM [O99.810] 08/01/2008 More... THROMBOS HEMORRHOIDS NOS [K64.5] INVALID FOR* Priority: Mild More... Routine general medical examination at a health*INVALID FOR*11/21/2011 Priority: Mild Class: Chronic More... ROUTINE MELT HELPER EXAMINATION [Z01.419] INVALID FOR*08/15/2008 Class: Chronic More... HX OF CERVICAL DYSPLASIA [Z87.410] INVALID FOR* More... ANXIETY STATE NOS [F41.1] INVALID FOR* Priority: Moderate More... PREV DELIVERY NOS-ANTEPART [O34.219] INVALID FOR* POOR GRTH-ANTEPART [O36.5990] INVALID FOR*09/26/2008 Routine gynecological examination [Z01.419] INVALID FOR*11/21/2011 Class: Chronic More... HIDRADENITIS [L73.2] INVALID FOR* Priority: Moderate More... 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 Pyoderma, unspecified [L08.0] INVALID FOR*05/21/2016 Pain in joint, lower leg [M25.569] INVALID FOR* Headache [R51] INVALID FOR* Lumbago [M54.5] INVALID FOR* Spasm of muscle [M62.838] INVALID FOR*10/06/2017 Adrenal insufficiency [E27.40] Muscle spasm [M62.838] INVALID FOR* Calculus of kidney [N20.0] INVALID FOR* Lyme disease [A69.20] INVALID FOR* Seborrheic Dermatitis [L21.8] INVALID FOR* Xerosis cutis [L85.3] INVALID FOR*05/21/2016 Calculus of ureter [N20.1] INVALID FOR* Pyoderma [L08.0] INVALID FOR*05/21/2016 Pruritus [L29.9] INVALID FOR*05/21/2016 Monilial vulvovaginitis [B37.3] INVALID FOR* Migraine without aura, with intractable migrain*INVALID FOR* Microhematuria [R31.29] INVALID FOR* Flank pain [R10.9] INVALID FOR* Female stress incontinence [N39.3] INVALID FOR* Menstrual irregularity [N92.6] INVALID FOR* Palpitations [R00.2] INVALID FOR* Backache, unspecified [M54.9] INVALID FOR*10/06/2017 Anorectal polyp [K62.0, K62.1] INVALID FOR* Low back pain [M54.5] INVALID FOR*10/06/2017 Buttock pain [M79.18] INVALID FOR*10/06/2017 Lumbosacral neuritis [M54.17] INVALID FOR* Gross hematuria [R31.0] INVALID FOR* History of kidney stones [Z87.442] INVALID FOR* Straining on urination [R39.16] INVALID FOR* Hesitancy [R39.11] INVALID FOR* Difficulty voiding [R39.198] INVALID FOR* Chronic pelvic pain in female [R10.2, G89.29] INVALID FOR* Endometriosis [N80.9] INVALID FOR* Obesity, Class I, BMI 30-34.9 [E66.9] INVALID FOR* Bulging of lumbar intervertebral disc [M51.26] INVALID FOR* Encounter Status:Closed by KRISTINA VILLALOBOS, ESAU Vaz on 12/30/17 PROGRESS Observed: 12/30/2017 Status: COMPLETED Source: [place] 7:59 AM [facility] [place] REPOSIT[facility] HNO ID: [id number] Author: Esau Vaz ([facility]) Kristina Service: (none) Author Type: Physician Frame Hand Type: Progress Notes Filed: 12/30/2017 11:59 AM Note Text: Esau Acevedo [facility]-C [facility] [address] [place] [address] 12/30/2017 ASSESSMENT AND PLAN: Assessment : Encounter Diagnosis ICD-10-CM 1. 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 Lumbosacral neuritis M54.17 3. Bulging of lumbar intervertebral disc M51.26 Discussion: Ms. Arce Is a 32-year-old female here for evaluation of low back, left buttock and leg pain, and left lateral thigh pain since a fall she sustained in July 2017 negotiating her bathtub at home. She states she fell on her right side but has had left-sided symptoms ever since. She was evaluated by her primary care who sent her for physical therapy and she has been for orthopedic consultation and has a financial adviser also involved in her care. Patient has IBS and states that she has been diagnosed with ankylosing spondylitis by rheumatology. Her HLA-B27 is negative and lumbar x-rays and MRI do not indicate findings typical of . Patient describes a painful bulge or mass on her left lateral proximal hip since her fall and she has undergone MRI scans of lumbar and left hip. Left hip MRI is read as normal. Lumbar MRI showed small disc protrusion on the left laterally possibly touching/affecting L5. Her exam is mildly suggestive of left L5 nerve root sensory disturbance. Motor testing is not consistent with focal lumbar nerve root dysfunction. There is hypersensitivity to palpation of soft tissues at the lumbosacral junction and over posterior pelvic bony prominences bilaterally. There is no tenderness over greater trochanters on either side. I did not detect obvious asymmetric mass on the left lateral hip in comparison to the right side. Although symptoms today appear to be somewhat out of proportion to MRI and x-ray findings, it does look like there is some correlation with her left leg symptoms and the L5 nerve root. For this, I would recommend diagnostic selective nerve root block at L5 on the left side. I discussed this with her in detail but she wants to hold off on consideration of this until after she speaks further about it with her financial adviser. At the end of the visit, she persisted with further questions regarding the findings on the hip. I did take the time to review the scan pictures and radiologist's reading with her in detail during the visit. Patient also indicates that there is a study [?ultrasound] that was done in [place], [place] that showed a mass in the soft tissue of her left hip but this is not available for review. I understood that the ultrasound study in question was done prior to what she described as spontaneous resolution of the left hip mass early in the visit. At that point, she had stated that the left hip mass had resolved on its own over the past few weeks but at the end of the visit, she said that she still feels it there and that it bothers her. Since the left hip MRI scan findings were normal and the patient has been evaluated by orthopedics for this previously, I am recommending that she follow-up with orthopedics for this separate issue. The patient further questioned about her bowel and bladder incontinence issues considering that they were related to the low back. I took additional time to review the MRI lumbar (pictures and report) in detail with her. The scan shows completely normal central canal with no impingement on any nerves that would have a relationship to bowel or bladder function. Plan : REFERAL FOR SERVICES: -Consult to Pain Anesthesia: Type of injection requested: Lumbar transforaminal epidural steroid injection left L5. The purpose will be for both diagnostic and therapeutic purposes. The patient is instructed to pay attention to the amount of pain during the anesthetic phase, and during that time to perform the activities that typically exacerbate the pain to determine what percentage of relief is gained. The patient is instructed that the steroid phase of the injection may take up to a week or more to provide relief, and to pay attention to the percentage of relief obtained during the steroid phase. If the steroid phase gives significant pain relief, the procedure can be repeated. ACTIVITY RECOMMENDATIONS: -The patient is encouraged to avoid bed rest and maintain normal activity. -The patient advised to avoid prolonged sitting. FOLLOW-UP: -The patient is instructed to follow up after left L5 injections are complete. ADDITIONAL DISCUSSION: -I discussed signs and symptoms of cauda equina syndrome were discussed in detail. The patient is advised to seek emergent care immediately should they occur but I reviewed her MRI with her in detail to show her that there is no compressive lesion at all that would currently cause suspicion for this syndrome. This document has been created with the use of voice recognition technology. It may contain inaccuracies: (e.g. misspellings, inaccurate syntax or word sense) that have escaped review. Time spent: 65 minutes with greater than 50% in face to face consultation with the patient. cc: Cherry Veloz PA-C [address] [facility] [id number] Results of consultation to be transmitted via electronic medical record for those providers who practice within [facility] or with access to [facility] via [facility], or via letter. CHIEF COMPLAINT: Back pain < Leg symptoms Left > Right HPI: Her back pain is at 4/10 and is constant. The back pain is located in lower back and gluteal region and is described as sharp, stabbing, shooting, and burning. Her leg symptoms are at 6/10 and are constant. This is located in both thighs, below the left knee and in the left foot and is described as stinging, shooting, and burning. Symptoms are exacerbated by twisting, bending andSitting/standing for long periods of timeand improved by laying down, and heat. She states that these symptoms began 4 years ago, with a recent fall in July 2017 in bathtuband are related to a fall x 4 years ago with recent fall as mentioned above. History of bowel or bladder dysfunction: Yes, pt states having both bowel and bladder incontinence. Pt states having pelvic floor issues as well as Crohns and IBS History of previous spinal surgery: No History of spinal trauma: Yes, Zain fx year of 1999 Work Status: currently unemployed NON-OPERATIVE CARE: Medication(s): She has tried the following for relief of her symptoms: Medrol DosPak Voltaren Physical Therapy: She has had physical therapy for her current symptoms. The patient is currently attending PT sessions. The therapy did not provide any significant relief. Spinal Injections: She has not gotten prior spinal injections. Other: None Current Outpatient Prescriptions: potassium chloride (KLOR-CON 10) 10 mEq tablet Take 2 tablets by mouth once daily. Disp: 60 tablet Rfl: 11 triamcinolone acetonide (KENALOG) 0.1 % cream Apply 1 application to affected area twice daily. Disp: 454 g Rfl: 0 atenolol (TENORMIN) 25 mg tablet TAKE 1 TABLET BY MOUTH ONCE DAILY. Disp: 30 tablet Rfl: 11 diclofenac potassium (CATAFLAM) 50 mg tablet Take 50 mg by mouth three times daily. Disp: Rfl: medroxyPROGESTERone (PROVERA, CYCRIN) 10 mg tablet Take 10 mg by mouth once daily. Disp: Rfl: HYDROCORTISONE TOPICAL Apply to affected area. Disp: Rfl: omeprazole (PRILOSEC) 20 mg capsule TAKE 1 CAPSULE BY MOUTH ONCE DAILY. Disp: 30 capsule Rfl: 1 lidocaine (XYLOCAINE) 2 % jelly Apply 1 application to affected area as directed. Disp: 1 Tube Rfl: 1 diazePAM (VALIUM) 5 mg tablet Take 1 tablet by mouth once daily as needed. Disp: 30 tablet Rfl: 5 dexamethasone (DECADRON) 1 mg tablet Take 1 mg by mouth once daily as needed. Disp: Rfl: 0 magnesium hydroxide (MILK OF MAGNESIA) 400 mg/5 mL suspension Take 5 mL by mouth once daily as needed. Disp: 30 mL Rfl: 0 docusate sodium (COLACE) 100 mg capsule Take 100 mg by mouth twice daily as needed. Disp: Rfl: Simethicone (GAS FREE EXTRA STRENGTH) 125 mg cap Take 1 tablet by mouth three times daily as needed. Disp: 30 capsule Rfl: 0 hydrocortisone (HEMORRHOIDAL HC) 25 mg suppository 1 Suppository by RECTAL route twice daily as needed. Insert one (1) in the rectum each night before bed. Disp: 60 Suppository Rfl: 4 Tranexamic Acid 650 mg tab Take 2 tablets by mouth three times daily as needed (until bleeding slows or stops for up to 5 days). Disp: 30 tablet Rfl: 0 ondansetron (ZOFRAN, HYDROCHLORIDE,) 4 mg tablet Take 4 mg by mouth every 8 hours as needed. Disp: Rfl: COMPOUNDED PRESCRIPTION Apply to affected area. Nifedipine 0.3% apply to anal area twice daily. Disp: 30 g Rfl: 5 albuterol 90 mcg/actuation Aero Inhale 2 Puffs as instructed every 4 hours as needed (shortness of breath). Disp: 1 Inhaler Rfl: 0 cetirizine 10 mg tablet Take 1 tablet by mouth once daily. Disp: 30 tablet Rfl: 3 MULTI-VITAMIN ORAL Take by mouth once daily. 2 tablets daily Disp: Rfl: No current facility-administered medications for this visit. Allergies: Bees; Doxycycline; Eucalyptus; Flexeril [Cyclobenzaprine]; Keflex [Cephalexin]; Latex; Minocycline; Nitroglycerin Suppositories [Other]; Nsaids (Non-Steroidal Anti-Inflammatory Drug); Tizanidine; Vicodin [Hydrocodone-Acetaminophen] PAST MEDICAL HISTORY Diagnosis Date - Abnormal glandular Papanicolaou smear of cervix Abn. Pap smear (cervix) - Abnormal maternal glucose tolerance, antepartum 2003 diet controlled - Allergic rhinitis, cause unspecified Allergic rhinitis - Anal fissure - Ankylosis spondylitis - Back pain - Calculus of kidney 2007 4 stones, followed by Dr. 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 [facility] - Unspecified asthma(493.90) PAST SURGICAL HISTORY Procedure Laterality Date - CERVIX UTERI CONIZA LP ELCTRO EXCI 2001 LEEP-Cervix - DELIVERY ONLY 2003 , low cervical - COLONOSCOP W/ OR W/O [facility] SPEC 1986 Colonoscopy - COLONOSCOP W/ OR W/O BRS SPEC 06/20/2014 Colonoscopy - ESWL X1 - F SALPINGO-OOPHORECTOMY 08/21/14 LEFT only - PAST SURGICAL HISTORY OF WISDOM TEETH - PAST SURGICAL HISTORY OF < 1 yr old bilat inguinal hernia repair - SIGMOIDOSCOPY FLEX DIAG Sigmoidoscopy, flexible Social History Marital status: Single Spouse name: Years of education: 13 Number of children: 1 Occupational History Occupation Employer Comment [employer] Social History Main Topics Smoking status: Never Smoker Smokeless tobacco: Never Used Alcohol use: No Comment: Seldom Drug use: No Sexual activity: Yes Partners with: Male control/protection: Condom Comment: no tatoos, no transfusions Other Topics Concern Service No Blood Transfusions No Caffeine Concern No Occupational Exposure No Hobby Hazards No Sleep Concern Yes Stress Concern Yes Weight Concern Yes Special Diet Yes Back Care Yes Exercise Yes Bike Helmet Yes Seat Belt Yes Self-Exams Yes Social History Narrative Single 1 son age 2 Lives in [facility] with son, from [facility] Takes care of her son who has 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 (he gets social security, and 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) FAMILY HISTORY Problem Relation Age of Onset - Prostate Cancer Maternal Grandfather - Cancer Maternal Grandfather leukemia - other (parkinsons) Maternal Grandfather - Coronary Artery Disease Paternal Grandfather 48 suddenly - Diabetes Paternal Grandmother - Lipids Mother - Osteoporosis Mother - other (CHF) Mother - Lipids Father - Hypertension Father - other (kidney stones) Father - other (CHF) Father - other (spastic 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) Son - Breast Cancer Maternal Grandmother age 90 - other (down syndrome) Paternal Uncle REVIEW OF SYSTEMS: Constitutional: (+) Fever (-) Night Sweats (+) Weight Gain (-) Weight Loss (+) Fatigue Cardiovascular: (-) Chest Pain (+) Palpitations (+) Lightheadedness (+) Swelling of Ankles (-) Hx Heart Surgery Respiratory: (+) Shortness of Breath (+) Cough (-) Wheezing (+) Snoring Gastrointestinal: (+) Incontinence (+) Abdominal Pain (+) Diarrhea (-) Constipation (-) Nausea/Vomiting (+) Heart Burn Endocrine: (-) Thyroid Disorder (-) Diabetes Hematologic: (-) Prolonged Bleeding (-) Easy Bruising Genitourinary: (+) Incontinence (+) Frequency (+) Urinary Urgency Skin: (+) Rashes (+) Itching (-) Other Lesions Neurologic: (-) Headache (+) Double Vision (-) Confusion (-) Paralysis (+) Vertigo (-) Syncope Psychiatric: (+) Depression (+) Anxiety (-) Delusions (-) Hallucinations (-) Suicidal Thoughts PHYSICAL EXAM: Blood pressure 106/72, pulse 85, height 160 cm (5' 3), weight 82.6 kg (182 lb), last menstrual period 12/03/2017, SpO2 99 %. Body mass index is 32.24 kg/m?. General: Patient is a(n) average historian. The patient appears approximately her stated age and is sitting comfortably in the examining room. The patient is average height in stature and is obese in appearance. She has no difficulty arising from a sitting position. She does have difficulty acquiring a full, upright position when standing. Station and Gait: favoring the left lower extremity, wide- based and slow pace The patient is able to but has difficulty in attempting to walk in a tandem gait. MENTAL STATUS EXAMINATION: The patient was well groomed and casually attired. The patient had fair eye contact and rapport was difficult to establish. The patient appeared to be alert and oriented in all spheres. The patient's motivation for treatment was judged based on today's encounter to be fair. LUMBAR SPINE: Skin: Normal-no rashes, bruises, lesions, or signs of localized trauma., Skin color, texture and turgor normal. Lumbar Lordosis: Normal RANGE OF MOTION: Flexion: abnormal, decreased motion below expected for age and weight Pain: Yes Extension: abnormal, decreased motion below expected for age and weight Pain: Yes Lateral Bending: Right normal, as expected for age and weight Pain: Yes Left normal, as expected for age and weight Pain: Yes PALPATION TENDERNESS: Severe at lumbar region, posterior pelvis, gluteal region and soft tissues Hyperesthesia present: Yes, in the following locations: lumbar region, posterior pelvis, gluteal region and soft tissues. Regional symptoms present: No Increased pain with axial loading: Yes Distraction: Abnormal foot dorsiflexor strength appeared to be normal with legs in extension and diminished with knees flexed. Pain responses: elevated NEUROLOGIC EXAM: MOTOR: Walk on Toes: Right: Yes Left: Yes Walk on Heels: Right: Yes, but poorly Left: Yes, but poorly Requires verbal cues to minimize cog-wheel or give-way resistance: Yes. Very detailed and specific instructions were needed in order to achieve dorsiflexion and plantar flexion range of motion on the left side. Patient seemed to require specific guidance as to how to dorsiflex and plantarflex the left foot. Hip Flexor R: 5/5 L: 4/5 Hip Adductor R: 5/5 L: 5/5 Hip Abductor R: 5/5 L: 5/5 Knee Extension R: 5/5 L: 5/5 Foot Dorsiflexion R: 5/5 L: 4/5 Foot Plantar Flexion R: 5/5 L: 4/5 Ext Hallicus Longus R: 5/5 L: 5/5 Toe Extensors R: 4/5 L: 4/5 SENSATION to Light Touch: Lumbar: L5: R: Normal, L: Abnormal: Noted findings are decreased sensation to light touch within this dermatome. REFLEXES: Lower Extremity: All Lower Extremity reflexes symmetrically normal. Clonus: R: 0 beats/Normal L: 0 beats/Normal Babinski Sign: Negative bilaterally. Upper Extremity: All Upper Extremity reflexes symmetrically normal. Hope's Sign: Negative bilaterally. VASCULAR: Skin appearance: Right: Warm/pink Left: Warm/pink Capillary refill: Right: brisk Left: brisk ADDITIONAL MUSCULOSKELETAL EXAM: HIP/PELVIS EXAM: Motion restriction: Right: No Left: Yes Pain: Right: No Left: Yes Greater Trochanteric pain: Right: No Left: No Tenderness over the PSIS: Right: Yes Left: Yes SPECIAL TESTS: Straight Leg Raise: negative bilaterally Contralateral Straight Leg Raise: negative bilaterally IMAGING STUDIES: See above for description of MRI scans lumbar and left hip PROGRESS Observed: 12/27/2017 Status: COMPLETED Source: [place] 2:02 PM [facility] [place] REPOSITORY [facility] ID: [id number] Author: Miracle (Pt) Torito Service: (none) Author Type: Physical Therapist Type: Progress Notes Filed: 12/27/2017 2:10 PM Note Text: Episode Visit Count: 2 Therapist That Will Oversee The Plan Of Care: Miracle Ugarte Start of Care Date: 12/16/17 Onset Date: 07/26/17 Plan of Care Certification Date: 12/16/17 Patient Identified by Name and Date of : Yes REHABILITATION AND SPORTS THERAPY PHYSICAL THERAPY TREATMENT NOTE ASSESSMENT: Kaya Arce demonstrated improvements in compliance with HEP. The patient will continue to benefit from continued skilled physical therapy for core and LE strengthening, lumbar spine AROM, postural correction, control of pain/inflammation and improve activity tolerance. PLAN FOR NEXT VISIT: Continue to assess symptom response to exercises. Continue with core strengthening, postural correction, AROM and may add modalities as needed for localized pain/inflammation. SUBJECTIVE: Getting up in the mornings are most painful and then going to bed at night. Late morning seems to be the least painful time of day. Pt reports compliance with home exercises. Pain Score: 6/10 (5-6/10) Pain Location: Low Back/Lumbar Spine - Right;Low Back/Lumbar Spine - Left;Buttocks - Left Frequency: Continuous Post Treatment Pain Score: 5/10 Pain Location: Low Back/Lumbar Spine - Right;Low Back/Lumbar Spine - Left;Hip - Left OBJECTIVE MEASURES WITH LEVEL OF FUNCTION: Posture / Alignment Posture: Decreased lumbar lordosis Repeated Test Movements - Lumbar REIL - Symptoms After: better TREATMENT: Therapeutic Exercise: 1: *isometric abdominals (in hooklying) 5 sec holds, 1 x 10 reps 2: *gluteal sets 5 sec holds, 1 x 10 reps 3: prone hip extensions 1 x 10 reps each leg (this caused burning into L LE so stopped and did not add to HEP) 4: *prone pressups 2 x 10 reps (second set done after prone hip extensions and this relieved the burning in the leg) 5: *SKC stretches 30 sec holds x 3 reps each leg 6: L hip flex with R hip ext (in sitting) 7: *seated LAQ R/L LE 10x 8: *seated L great toe extension/flexion 10x Skilled Intervention: Patient was educated in proper exercise technique and purpose for exercises. Reviewed and educated patient on additions/changes for home exercise program as above (*) Skilled judgment was provided in selection of appropriate interventions. Provided written instruction for home exercise program to facilitate proper performance and compliance. Correct performance of therapeutic exercises was facilitated with verbal and visual cuing. Patient education as noted. Billing: [facility]: Therapeutic Exercise (50800): 1:1 time: 47 minutes (3 units: 38-52 mins) Total time: 47 minutes Miracle Ugarte PT CNTHERAPY Observed: 12/27/2017 Status: COMPLETED Source: [place] 12:45 PM [facility] REPOSITORY OT/PT/Speech Visit (PTWS) KAYA ARCE ([id number]) 1985 F Date Time Provider Department 12/27/17 12:45 PM MIRACLE UGARTE (PT) PTWS Date Time Provider Department Center 12/27/2017 12:45 PM [id number] UGARTE (PT) PTWS [facility] Reason for Visit: Physical Therapy [503] Primary Visit Diagnosis:Chronic left-sided low back pain with left-sided sciatica [M54.42, G89.29] Other Visit Diagnosis:Bulging of lumbar intervertebral disc [M51.26] Allergies As of Date: 12/27/2017 Noted Allergy Reaction BEES 06/18/2010 4 - Hives 7 - Swelling DOXYCYCLINE 09/26/2008 8 - GI Upset Comments: Not able to tolerate due to GI effects EUCALYPTUS 06/07/2007 Comments: tachycardia close airway FLEXERIL (CYCLOBENZAPRINE) 04/28/2012 1 - Mental Status Change Comments: Made patient feel worse than before KEFLEX (CEPHALEXIN) 05/09/2002 4 - Hives 10 - Anaphylaxis LATEX 08/15/2008 7 - Swelling MINOCYCLINE 03/07/2008 8 - GI Upset nitroglycerin suppositories [Othe*01/31/2008 NSAIDS (NON-STEROIDAL ANTI-INFLAM*2015 5 - Intolerance TIZANIDINE 12/04/2010 1 - Mental Status Change Comments: Low HR, cold and clammy (subjective only) VICODIN (HYDROCODONE-ACETAMINOPHE*03/31/2010 9 - Itching Date Reviewed: 11/15/2017 Reviewed by: Cherry Veloz (Pa) - Fully Assessed Prescriptions as of 12/27/2017 Sig: POTASSIUM CHLORIDE ER 10 MEQ * Take 2 tablets by mouth once * TRIAMCINOLONE ACETONIDE 0.1 %* Apply 1 application to affect* ATENOLOL 25 MG TABLET TAKE 1 TABLET BY MOUTH ONCE D* DICLOFENAC POTASSIUM 50 MG TA* Take 50 mg by mouth three florentin* MEDROXYPROGESTERONE 10 MG TAB* Take 10 mg by mouth once sienna* HYDROCORTISONE TOPICAL Apply to affected area. OMEPRAZOLE 20 MG CAPSULE,JACQUE* TAKE 1 CAPSULE BY MOUTH ONCE * LIDOCAINE 2 % MUCOSAL JELLY Apply 1 application to affect* DIAZEPAM 5 MG TABLET Take 1 tablet by mouth once d* DEXAMETHASONE 1 MG TABLET Take 1 mg by mouth once daily* MAGNESIUM HYDROXIDE 400 MG/5 * Take 5 mL by mouth once daily* DOCUSATE SODIUM 100 MG CAPSULE Take 100 mg by mouth twice da* SIMETHICONE 125 MG CAPSULE Take 1 tablet by mouth three * HYDROCORTISONE ACETATE 25 MG * 1 Suppository by RECTAL route* TRANEXAMIC ACID 650 MG TABLET Take 2 tablets by mouth three* ONDANSETRON HCL 4 MG TABLET Take 4 mg by mouth every 8 ho* COMPOUNDED PRESCRIPTION Apply to affected area. Nife* ALBUTEROL 90 MCG/ACTUATION AE* Inhale 2 Puffs as instructed * * CETIRIZINE 10 MG TABLET Take 1 tablet by mouth once d* * MULTI-VITAMIN ORAL Take by mouth once daily. 2 * Progress Notes: Miracle Ugarte, PT 12/27/2017 2:10 PM Signed Episode Visit Count: 2 Therapist That Will Oversee The Plan Of Care: Miracle Ugarte Start of Care Date: 12/16/17 Onset Date: 07/26/17 Plan of Care Certification Date: 12/16/17 Patient Identified by Name and Date of : Yes REHABILITATION AND SPORTS THERAPY PHYSICAL THERAPY TREATMENT NOTE ASSESSMENT: Kaya Arce demonstrated improvements in compliance with HEP. The patient will continue to benefit from continued skilled physical therapy for core and LE strengthening, lumbar spine AROM, postural correction, control of pain/inflammation and improve activity tolerance. PLAN FOR NEXT VISIT: Continue to assess symptom response to exercises. Continue with core strengthening, postural correction, AROM and may add modalities as needed for localized pain/inflammation. SUBJECTIVE: Getting up in the mornings are most painful and then going to bed at night. Late morning seems to be the least painful time of day. Pt reports compliance with home exercises. Pain Score: 6/10 (5-6/10) Pain Location: Low Back/Lumbar Spine - Right;Low Back/Lumbar Spine - Left;Buttocks - Left Frequency: Continuous Post Treatment Pain Score: 5/10 Pain Location: Low Back/Lumbar Spine - Right;Low Back/Lumbar Spine - Left;Hip - Left OBJECTIVE MEASURES WITH LEVEL OF FUNCTION: Posture / Alignment Posture: Decreased lumbar lordosis Repeated Test Movements - Lumbar REIL - Symptoms After: better TREATMENT: Therapeutic Exercise: 1: *isometric abdominals (in hooklying) 5 sec holds, 1 x 10 reps 2: *gluteal sets 5 sec holds, 1 x 10 reps 3: prone hip extensions 1 x 10 reps each leg (this caused burning into L LE so stopped and did not add to HEP) 4: *prone pressups 2 x 10 reps (second set done after prone hip extensions and this relieved the burning in the leg) 5: *SKC stretches 30 sec holds x 3 reps each leg 6: L hip flex with R hip ext (in sitting) 7: *seated LAQ R/L LE 10x 8: *seated L great toe extension/flexion 10x Skilled Intervention: Patient was educated in proper exercise technique and purpose for exercises. Reviewed and educated patient on additions/changes for home exercise program as above (*) Skilled judgment was provided in selection of appropriate interventions. Provided written instruction for home exercise program to facilitate proper performance and compliance. Correct performance of therapeutic exercises was facilitated with verbal and visual cuing. Patient education as noted. Billing: [facility]: Therapeutic Exercise (20356): 1:1 time: 47 minutes (3 units: 38-52 mins) Total time: 47 minutes Miracle Ugarte, PT PELVIC (NON ) Observed: 12/20/2017 Status: F Source: [place] 12:38 PM [facility] REPOSITORY [facility] Imaging Services [address] [place] [id number] Pelvic (Non ) MR#: [id number] Acct: [id number] Name: KAYA ARCE Rep #: [id number] : 1985 F 32 From: Oleg Olvera DO PCP: Rudy Curran DO Status: REG CLI Study: Pelvic (Non ) Date of Exam: 12/20/17 Exam# [id number] Ordering Dr: Monica Carvajal PRINTED CIRCUIT PHOTOGRAPHER-Juan STUDY: ULTRASOUND OF THE FEMALE PELVIS - COMPLETE REASON FOR EXAM: Female, 32 years old. Ovarian cyst LMP: December 01, 2017 TECHNIQUE: Transvaginal TECHNICAL QUALITY: Adequate. COMPARISON: None. FINDINGS: The uterus is anteverted and is in a midline position. The uterus measures 11.3 x 5.0 x 4.1 cm. Normal uterine cervix. The endometrium measures 1.6 mm in thickness, and is hyperechoic. There is no demonstrated endometrial mass. There is no demonstrated myometrial mass. The patient does not have an I.U.D. The right ovary is visualized. The right ovary measures 3.8 x 2.9 x 2.4 cm. There is no right ovarian cyst or ovarian mass. There is no visualized right adnexal mass or complex lesion. There is normal arterial and normal venous vascularity. The left ovary is not visualized. . There is no fluid in the cul-de-sac. US/Pelvic (Non ) IMPRESSION: Status post left oophorectomy. Electronically Signed: Oleg Olvera DO at 23:52 EDT Tel [phone], Service support , CC: SUSHILA Carvajal; Rudy Curran DO Profiler Hand: Signed PROGRESS Observed: 12/16/2017 Status: COMPLETED Source: [place] 9:32 AM CLINIC OTHER CAMPUS REPOSITORY O ID: [id number] Author: Ky (Pt) Monica Service: (none) Author Type: Physical Therapist Type: Progress Notes Filed: 12/16/2017 11:36 AM Note Text: Episode Visit Count: 1 Therapist That Will Oversee The Plan Of Care: Ky Anderson Start of Care Date: 12/16/17 Onset Date: 07/26/17 Plan of Care Certification Date: 12/16/17 Patient Identified by Name and Date of : Yes REHABILITATION AND SPORTS THERAPY PHYSICAL THERAPY EVALUATION PLAN OF CARE: Assessment: Kaya Arce presents with the diagnosis of LOW BACK PAIN with LEFT radiculopathy. She presents with impairments of pain, ROM, sitting, standing, strength, sleep, balance and activity tolerance. She may benefit from skilled therapy services to improve ROM and strength, decrease pain complaints and improve activity tolerance with decrease pain complaints. 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 Patient states that he is independent with his ADL's so she does not need to lift or transfer him. Patient with impaired sleep due to complaints of LEFT hip and lower extremity pain. Classification Low Back Pain Subgroup Classification: Graded activity subgroup: recommended visits 12. Graded Activity Subgroup Classification based on: disproportionate pain Prognosis: Fair Fair due to: clinical presentation;coping skills;limited tolerance to activity Goals for Episode of Care: created on 12/16/17 through 03/16/18 [place] in home exercise program. Patient will decrease pain rating by 2 points to meet minimal clinical important difference for numeric pain rating scale. Patient will increase active ROM of trunk to WNL and painfree to allow pt to improved performance of ADLs and to normalize gait mechanics / gait pattern . Patient will increase strength of B lower extremity to 5/5 to allow for return to prior functional status, normalized gait mechanics, perform ADLs and negotiate stairs. Perform standing activities without pain. Improve postural awareness. Patient will be to sit with equal weightbearing B buttocks. Planned Interventions, Frequency, and Duration: Current Frequency: 2x/week Duration: 12 weeks Total Number of Visits Planned: 24 Planned Treatment Interventions: Therapeutic exercise;Manual therapy;Therapeutic activities;Self-assisted management;Aquatic PT;Patient/Family/Caregiver Education;Modalities;Body Mechanics Training;Functional training;General ConditioningE-Stim Unattended PLAN FOR NEXT VISIT: progress activity tolerance as able, try abdominal bracing and SLR Patient demonstrates good understanding of plan of care and treatment. The above goals and plan of care were discussed and agreed upon by patient/family. Transfer of Care Due To: Closer to Home Patient transferring care to: [place] SUBJECTIVE: Kaya Arce is a 32 year old female seen today for Pt reports slipping in the tub and landing on her R hip. Pt currently complaining of L LE radiculopathy and swelling in L hip area. Pt had L hip drained, took steroids and had some slight change in swelling but is still present. Pt reports previous history of B foot drop. Pt is seeing a financial adviser who diagnosed ankylosing spondylitis. Pt had PT for L hip bursitis which included massage, strengthening and manual therapy. Pt did not get any relief of symptoms. Pt notes hypersensitivity down her L leg. Pt repeats history of back problems that would worsen with increased activity level. Pt with difficulty ascending/descending steps Functional Limitations: walking;sitting;stair negotiation;bending;heavy exertion;physical activities;lifting Prior Level of Function: Independent without limitations Patient Goals: help decrease pain Intake Information: Prescription present Previous Treatment: Physical Therapy? Falls Interview: Fall with injury in the last year Relevant History Hobbies / Interests: art, cooking, baking Home Environment Patient Lives With: Family Home Type: Multi-Level Entry To Home: Stairs Number Of Stairs Into Home: 3 Number Of Stairs To Bed/Bath: 12 Stairs to Bed/Bath with: Unilateral Rail Spine History Symptoms Location at Onset: Back Symptoms Since Onset: Worsening Pain is Worse Always: Sitting (walking on an incline) Pain is Better Sometimes: Lying (ice and heat; lidocaine patch) Sleeping Position: Supine (pillow under knees) Sleep Affected by Pain: Pain keeps from falling asleep;Pain awakens Pain Score: 6/10 (7/10 L thigh to touch;feels like a deep bruise, deep burning) Pain Location: Low Back/Lumbar Spine - Left Description: Aching;Sharp;Stabbing Frequency: Continuous Post Treatment Pain Score: No Change OBJECTIVE MEASURES WITH LEVEL OF FUNCTION: Posture / Alignment Posture: Rounded shoulders Leg Length Discrepency: negative Gait Gait Observation: ambulates with lateral sway with decreased trunk rotation Balance Static Standing Balance: Static Standing Balance Static Standing Balance: unsteady with trunk ROM Spine Observations Spine Observations: reduced lumbar lordosis; sitting with weight shifted to the R Spine Palpation R Lumbar Spine Palpation Tenderness: Greater trochanter (extreme tenderness along L greater trochanter) L Lumbar Spine Palpation Tenderness: Greater trochanter;Piriformis Lumbar Spine AROM Lumbar Flexion: Moderate limitation (distal patella; hinging in hips) Lumbar Extension: Moderate limitation (increase in back pain; decrease in leg pain) Lumbar R Side-Bend: Moderate limitation (increase in L leg pain) Lumbar L Side-Bend: Moderate limitation Lumbar R Rotation: Moderate limitation (increase in L leg pain) Lumbar L Rotation: Moderate limitataion (decrease in L leg pain) Repeated Test Movements - Lumbar Directional preference: Yes Directional Preference Direction: Extension Lumbar Pretest Symptoms (Standing): L back and LE RFIS - Symptoms During: increases (back pain and L LE pain) CORDELL - Symptoms During: decreases (L LE pain) LE Flexibility Flexibility: Hamstring Flexibility R Hamstring Flexibility: popliteal angle 25 degrees L Hamstring Flexibility: popliteal angle 25 degrees LE Strength R Hip Flexion (L2): (painful, unable to lift) R Hip ABduction: 4/5 R Hip ADduction: 4/5 R Knee Extension (L3): 5/5 R Knee Flexion: 5/5 R Ankle Dorsiflexion (L4): 5/5 R Ankle Plantar Flexion: 5/5 R Great Toes Extension (L5, S1): 5/5 L Hip Flexion (L2): (painful, unable to lift) L Hip ABduction: 4-/5 (pain in hooklying) L Hip ADduction: 4-/5 (painful in hooklying) L Knee Extension (L3): 4/5 L Knee Flexion: 4/5 L Ankle Dorsiflexion (L4): 4+/5 L Ankle Plantar Flexion: 4+/5 L Great Toes Extension (L5, S1): 4-/5 Special Tests - Hip and Spine Hip and Spine Special Tests: SLR Test SLR Test: Left Positive (45 degrees) Education: Education Learning Preferences: Demonstration;Explanation;Performance;Printed Materials Barriers: None Learning/educational needs: Health promotion;Home exercise program;Plan of Care;Posture;Body Mechanics Education Provided: Yes, see treatment interventions for education provided Education Provided To: Patient Education Mode/Type: Demonstration;Explanation/Discussion;Literature/Printed Materials;Performance Response to Education/Teach Back: States/Identifies;Return Demonstration;Requires Review/Additional Education TREATMENT: Evaluation Therapeutic Exercise: 1: *seated LAQ R/L LE 10x 2: *seated L great toe extension/flexion 10x 3: *prone lying or standing back bend 10x Skilled Intervention: Patient was educated in proper exercise technique and purpose for exercises. Reviewed and educated patient on additions/changes for home exercise program as above (*) Skilled judgment was provided in selection of appropriate interventions. Provided written instruction for home exercise program to facilitate proper performance and compliance. Correct performance of therapeutic exercises was facilitated with verbal cuing. Billing: [facility]: Evaluation - Low Complexity (14884) Therapeutic Exercise ([id number]): 1:1 time: 15 minutes (1 unit: 8-22 mins) Total time: 45 minutes Ky Anderson PT/ATC CNTHERAPY Observed: 12/16/2017 Status: COMPLETED Source: [place] 8:30 AM CLINIC OTHER CAMPUS REPOSITORY OT/PT/Speech Visit (PTMDRG) KAYA ARCE ([id number]) 1985 F Date Time Provider Department 12/16/17 8:30 AM [place] ANDERSON (PT) PTMDRG Date Time Provider Department Center 12/16/2017 8:30 AM [id number], JAMES (PT)PTMDRG [facility] Reason for Visit: PT Eval [187] Patient Education [91] Primary Visit Diagnosis:Chronic left-sided low back pain with left-sided sciatica [M54.42, G89.29] Allergies As of Date: 12/16/2017 Noted Allergy Reaction BEES 06/18/2010 4 - Hives 7 - Swelling DOXYCYCLINE 09/26/2008 8 - GI Upset Comments: Not able to tolerate due to GI effects EUCALYPTUS 06/07/2007 Comments: tachycardia close airway FLEXERIL (CYCLOBENZAPRINE) 04/28/2012 1 - Mental Status Change Comments: Made patient feel worse than before KEFLEX (CEPHALEXIN) 05/09/2002 4 - Hives 10 - Anaphylaxis LATEX 08/15/2008 7 - Swelling MINOCYCLINE 03/07/2008 8 - GI Upset nitroglycerin suppositories [Othe*01/31/2008 NSAIDS (NON-STEROIDAL ANTI-INFLAM*2015 5 - Intolerance TIZANIDINE 12/04/2010 1 - Mental Status Change Comments: Low HR, cold and clammy (subjective only) VICODIN (HYDROCODONE-ACETAMINOPHE*03/31/2010 9 - Itching Date Reviewed: 11/15/2017 Reviewed by: Cherry Veloz (Pa) - Fully Assessed Prescriptions as of 12/16/2017 Sig: POTASSIUM CHLORIDE ER 10 MEQ * Take 2 tablets by mouth once * TRIAMCINOLONE ACETONIDE 0.1 %* Apply 1 application to affect* ATENOLOL 25 MG TABLET TAKE 1 TABLET BY MOUTH ONCE D* DICLOFENAC POTASSIUM 50 MG TA* Take 50 mg by mouth three florentin* MEDROXYPROGESTERONE 10 MG TAB* Take 10 mg by mouth once sienna* HYDROCORTISONE TOPICAL Apply to affected area. OMEPRAZOLE 20 MG CAPSULE,JACQUE* TAKE 1 CAPSULE BY MOUTH ONCE * LIDOCAINE 2 % MUCOSAL JELLY Apply 1 application to affect* DIAZEPAM 5 MG TABLET Take 1 tablet by mouth once d* DEXAMETHASONE 1 MG TABLET Take 1 mg by mouth once daily* MAGNESIUM HYDROXIDE 400 MG/5 * Take 5 mL by mouth once daily* DOCUSATE SODIUM 100 MG CAPSULE Take 100 mg by mouth twice da* SIMETHICONE 125 MG CAPSULE Take 1 tablet by mouth three * HYDROCORTISONE ACETATE 25 MG * 1 Suppository by RECTAL route* TRANEXAMIC ACID 650 MG TABLET Take 2 tablets by mouth three* ONDANSETRON HCL 4 MG TABLET Take 4 mg by mouth every 8 ho* COMPOUNDED PRESCRIPTION Apply to affected area. Nife* ALBUTEROL 90 MCG/ACTUATION AE* Inhale 2 Puffs as instructed * * CETIRIZINE 10 MG TABLET Take 1 tablet by mouth once d* * MULTI-VITAMIN ORAL Take by mouth once daily. 2 * Progress Notes: Ky Anderson, PT/ATC 12/16/2017 11:36 AM Signed Episode Visit Count: 1 Therapist That Will Oversee The Plan Of Care: Ky Anderson Start of Care Date: 12/16/17 Onset Date: 07/26/17 Plan of Care Certification Date: 12/16/17 Patient Identified by Name and Date of : Yes REHABILITATION AND SPORTS THERAPY PHYSICAL THERAPY EVALUATION PLAN OF CARE: Assessment: Kaya Arce presents with the diagnosis of LOW BACK PAIN with LEFT radiculopathy. She presents with impairments of pain, ROM, sitting, standing, strength, sleep, balance and activity tolerance. She may benefit from skilled therapy services to improve ROM and strength, decrease pain complaints and improve activity tolerance with decrease pain complaints. 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 Patient states that he is independent with his ADL's so she does not need to lift or transfer him. Patient with impaired sleep due to complaints of LEFT hip and lower extremity pain. Classification Low Back Pain Subgroup Classification: Graded activity subgroup: recommended visits 12. Graded Activity Subgroup Classification based on: disproportionate pain Prognosis: Fair Fair due to: clinical presentation;coping skills;limited tolerance to activity Goals for Episode of Care: created on 12/16/17 through 03/16/18 [place] in home exercise program. Patient will decrease pain rating by 2 points to meet minimal clinical important difference for numeric pain rating scale. Patient will increase active ROM of trunk to WNL and painfree to allow pt to improved performance of ADLs and to normalize gait mechanics / gait pattern . Patient will increase strength of B lower extremity to 5/5 to allow for return to prior functional status, normalized gait mechanics, perform ADLs and negotiate stairs. Perform standing activities without pain. Improve postural awareness. Patient will be to sit with equal weightbearing B buttocks. Planned Interventions, Frequency, and Duration: Current Frequency: 2x/week Duration: 12 weeks Total Number of Visits Planned: 24 Planned Treatment Interventions: Therapeutic exercise;Manual therapy;Therapeutic activities;Self-assisted management;Aquatic PT;Patient/Family/Caregiver Education;Modalities;Body Mechanics Training;Functional training;General ConditioningE-Stim Unattended PLAN FOR NEXT VISIT: progress activity tolerance as able, try abdominal bracing and SLR Patient demonstrates good understanding of plan of care and treatment. The above goals and plan of care were discussed and agreed upon by patient/family. Transfer of Care Due To: Closer to Home Patient transferring care to: [place] SUBJECTIVE: Kaya Arce is a 32 year old female seen today for Pt reports slipping in the tub and landing on her R hip. Pt currently complaining of L LE radiculopathy and swelling in L hip area. Pt had L hip drained, took steroids and had some slight change in swelling but is still present. Pt reports previous history of B foot drop. Pt is seeing a financial adviser who diagnosed ankylosing spondylitis. Pt had PT for L hip bursitis which included massage, strengthening and manual therapy. Pt did not get any relief of symptoms. Pt notes hypersensitivity down her L leg. Pt repeats history of back problems that would worsen with increased activity level. Pt with difficulty ascending/descending steps Functional Limitations: walking;sitting;stair negotiation;bending;heavy exertion;physical activities;lifting Prior Level of Function: Independent without limitations Patient Goals: help decrease pain Intake Information: Prescription present Previous Treatment: Physical Therapy? Falls Interview: Fall with injury in the last year Relevant History Hobbies / Interests: art, cooking, baking Home Environment Patient Lives With: Family Home Type: Multi-Level Entry To Home: Stairs Number Of Stairs Into Home: 3 Number Of Stairs To Bed/Bath: 12 Stairs to Bed/Bath with: Unilateral Rail Spine History Symptoms Location at Onset: Back Symptoms Since Onset: Worsening Pain is Worse Always: Sitting (walking on an incline) Pain is Better Sometimes: Lying (ice and heat; lidocaine patch) Sleeping Position: Supine (pillow under knees) Sleep Affected by Pain: Pain keeps from falling asleep;Pain awakens Pain Score: 6/10 (7/10 L thigh to touch;feels like a deep bruise, deep burning) Pain Location: Low Back/Lumbar Spine - Left Description: Aching;Sharp;Stabbing Frequency: Continuous Post Treatment Pain Score: No Change OBJECTIVE MEASURES WITH LEVEL OF FUNCTION: Posture / Alignment Posture: Rounded shoulders Leg Length Discrepency: negative Gait Gait Observation: ambulates with lateral sway with decreased trunk rotation Balance Static Standing Balance: Static Standing Balance Static Standing Balance: unsteady with trunk ROM Spine Observations Spine Observations: reduced lumbar lordosis; sitting with weight shifted to the R Spine Palpation R Lumbar Spine Palpation Tenderness: Greater trochanter (extreme tenderness along L greater trochanter) L Lumbar Spine Palpation Tenderness: Greater trochanter;Piriformis Lumbar Spine AROM Lumbar Flexion: Moderate limitation (distal patella; hinging in hips) Lumbar Extension: Moderate limitation (increase in back pain; decrease in leg pain) Lumbar R Side-Bend: Moderate limitation (increase in L leg pain) Lumbar L Side-Bend: Moderate limitation Lumbar R Rotation: Moderate limitation (increase in L leg pain) Lumbar L Rotation: Moderate limitataion (decrease in L leg pain) Repeated Test Movements - Lumbar Directional preference: Yes Directional Preference Direction: Extension Lumbar Pretest Symptoms (Standing): L back and LE RFIS - Symptoms During: increases (back pain and L LE pain) CORDELL - Symptoms During: decreases (L LE pain) LE Flexibility Flexibility: Hamstring Flexibility R Hamstring Flexibility: popliteal angle 25 degrees L Hamstring Flexibility: popliteal angle 25 degrees LE Strength R Hip Flexion (L2): (painful, unable to lift) R Hip ABduction: 4/5 R Hip ADduction: 4/5 R Knee Extension (L3): 5/5 R Knee Flexion: 5/5 R Ankle Dorsiflexion (L4): 5/5 R Ankle Plantar Flexion: 5/5 R Great Toes Extension (L5, S1): 5/5 L Hip Flexion (L2): (painful, unable to lift) L Hip ABduction: 4-/5 (pain in hooklying) L Hip ADduction: 4-/5 (painful in hooklying) L Knee Extension (L3): 4/5 L Knee Flexion: 4/5 L Ankle Dorsiflexion (L4): 4+/5 L Ankle Plantar Flexion: 4+/5 L Great Toes Extension (L5, S1): 4-/5 Special Tests - Hip and Spine Hip and Spine Special Tests: SLR Test SLR Test: Left Positive (45 degrees) Education: Education Learning Preferences: Demonstration;Explanation;Performance;Printed Materials Barriers: None Learning/educational needs: Health promotion;Home exercise program;Plan of Care;Posture;Body Mechanics Education Provided: Yes, see treatment interventions for education provided Education Provided To: Patient Education Mode/Type: Demonstration;Explanation/Discussion;Literature/Printed Materials;Performance Response to Education/Teach Back: States/Identifies;Return Demonstration;Requires Review/Additional Education TREATMENT: Evaluation Therapeutic Exercise: 1: *seated LAQ R/L LE 10x 2: *seated L great toe extension/flexion 10x 3: *prone lying or standing back bend 10x Skilled Intervention: Patient was educated in proper exercise technique and purpose for exercises. Reviewed and educated patient on additions/changes for home exercise program as above (*) Skilled judgment was provided in selection of appropriate interventions. Provided written instruction for home exercise program to facilitate proper performance and compliance. Correct performance of therapeutic exercises was facilitated with verbal cuing. Billing: [facility]: Evaluation - Low Complexity (58303) Therapeutic Exercise (34478): 1:1 time: 15 minutes (1 unit: 8-22 mins) Total time: 45 minutes Ky Anderson PT/ATC Ky Anderson PT/ATC 12/24/2017 9:39 AM Signed Addended by: [place] ANDERSON on: 12/24/2017 09:39 AM Modules accepted: Orders Follow-up and Disposition History Recorded NEPHROLOGY NURSE OFFICE VISIT Observed: 12/13/2017 Status: F Source: [place] REPORT 1:40 PM [facility] REPOSITORY [facility] [address] [place] [address] OFFICE VISIT Date of Service: 12/13/17 MR#: [id number] Acct: [id number] Name: KAYA ARCE Rep #: [id number] : 1985 Provider: SUSHILA Carvajal Age/Sex: 32/F [place] 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: No Is patient in pain?: Yes Pain scale (1-10): 2 Allergies eucalyptus Allergy (Mild, Verified 12/13/17 10:28) unknown latex Allergy (Mild, Verified 12/13/17 10:28) Unknown cephalexin monohydrate [From Keflex] Allergy (Verified 12/13/17 10:28) Anaphylaxis doxycycline Adverse Reaction (Verified 12/13/17 10:28) Diarrhea Medications Atenolol [Tenormin (beta Edson)] 25 mg PO DAILY 01/11/16 [History Confirmed 12/13/17] Omeprazole [Prilosec] 20 mg PO DAILY 11/30/16 [History Confirmed 12/13/17] cetirizine 10 mg tablet 10 mg PO QDAY 06/28/17 [History Confirmed 12/13/17] erythromycin-benzoyl peroxide 3 %-5 % topical gel 1 applic TOPICAL BID 06/28/17 [History Confirmed 12/13/17] hydrocortisone 100 mg/60 mL enema 100 mg RC QDAY 06/28/17 [History Confirmed 12/13/17] lidocaine-collagen 2 % topical gel 1 applic TOPICAL QD-TID PRN 06/28/17 [History Confirmed 12/13/17] medroxyprogesterone 10 mg tablet 10 mg PO QDAY #10 tab 09/23/17 [Rx Confirmed 12/13/17] multivitamin tablet 1 tab PO DAILY 12/13/17 [History Confirmed 12/13/17] potassium chloride ER 10 mEq tablet,extended release 20 meq PO DAILY tab 12/13/17 [History Confirmed 12/13/17] prednisone 10 mg tablet 10 mg PO DAILY 12/13/17 [History Confirmed 12/13/17] Post menopausal: No Patient : No : No PFSH Medical History PCOS (polycystic ovarian syndrome) (Acute) Ankylosing spondylitis (Acute) Exercise-induced asthma (Acute) Mitral regurgitation (Acute) Endometriosis (Acute) Surgical History History of (Acute) History of hernia repair (Acute) Hx of removal of ovary (Acute) Family History Mother Heart disease Father Heart disease Diabetes Social History Smoking Status: Never smoker alcohol intake: never substance use type: does not use caffeine: Yes what type of physical activity do you participate in: walking frequency: 5-6 times per week seatbelt use: always do you feel safe at home: Yes additional social history: Single- Currently unemployed Pregancy History 1 Elective abortions Hx Para 1 Spontaneous abortions Past Pregnancies Del. DatName GA/WeeksOutcome Route [facility] LocaProviderFOB e ht en tn Unknown Casanova-2 004 HPI ANNUAL: Details: KAYA ARCE is a 32 year old who presents for annual exam. Last PAP: 09/2016 History of abnormal PAP: LEEP 2002 Having more lower pelvic pain especially in last 2 weeks. History of endometrioisis. Using cyclic provera to manage menses-menses vary in amount light to normal. Sometimes still skips menses with provera. No contraception. Same sexual partner. ROS Const Constitutional: Denies fatigue, weight gain or weight loss Cardio Card: Denies chest pain Resp Resp: Denies cough or shortness of breath with activity GI GI: Denies abdominal pain, constipation, change in stools, vomiting or bloating : Reports as per HPI; denies urinary frequency, pelvic pain, urinary urgency, vaginal discharge, vaginal itching, urinary incontinence or difficulty urinating Assessment AND Plan Problems 1. Encounter for gynecological examination with abnormal finding Z01.411 2. 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 PCOS (polycystic ovarian syndrome) E28.2 4. Pelvic pain in female R10.2 Plan Completed breast and pelvic exam Reviewed diet and exercise Pap 2017 Contraception none Ultrasound of pelvis She is also having hip and back pain and scheduled per ortho for MRI of area. Further management with KENNET[facility] dependent on US. She will not use OCP again. RTO 1 year, prn with problems Monica Carvajal [employer]ANK BREAKER Orders Orders: Medications Discontinued: Coding Level of Care Code Off vis,est,prev 18-39yrs Diagnoses Encounter for gynecological examination with abnormal finding Z01.411 Gynecological examination findings: abnormal findings PRESENT Endometriosis N80.9 PCOS (polycystic ovarian syndrome) E28.2 Pelvic pain in female R10.2 12/13/17 1340 <Electronically signed by Monica UGALDE> Date Monica UGALDE Cosigner Signature: Date (if applicable) CC: PROGRESS Observed: 12/08/2017 Status: COMPLETED Source: [place] 9:39 AM [facility] REPOSITORY O ID: [id number] Author: Chris Harley (Rt) Service: (none) Author Type: Process Design Engineer Type: Progress Notes Filed: 12/08/2017 9:40 AM Note Text: Radiology Service Progress Note PATIENT NAME: Kaya Arce DATE OF SERVICE: December 08, 2017 TIME: 9:39 AM PATIENT IDENTITY VERIFICATION COMPLETED USING TWO (2) METHODS: Patient confirmed name verbally and Date of . PATIENT GENDER DATA: Female. status: : No status: NO. PATIENT RELEVANT IMPLANT DATA REVIEWED: Yes RADIOLOGY DEPARTMENT: MR; Exam(s) Completed: Lower MSK: Hip, left Spine: Lumbar spine PERIPHERAL IV DATA: Not applicable SIGNED BY: RT Cherri December 08, 2017 9:39 AM MRI LUMBAR SPINE WO Observed: 12/08/2017 Status: F Source: [place] IVCON 9:33 AM [facility] REPOSITORY * * *Final Report* * * DATE OF EXAM: Dec 08 2017 9:33AM DORY 0303 - MRI LUMBAR SPINE WO IVCON / PROCEDURE REASON: Sciatica, left side * * * * Physician Interpretation * * * * EXAMINATION: MRI LUMBAR SPINE WO IVCON CLINICAL HISTORY: Lower back pain TECHNIQUE: Routine lumbosacral spine MR protocol without gadolinium. MQ: [id number] COMPARISON: 05/06/2016 lumbar spine radiographs RESULT: Counting reference: Lumbosacral junction. For the purposes of this report, L4-5 is considered the level of the iliac crest and there are 5 lumbar-type vertebrae. Anatomic Variants: None. Alignment: Alignment is anatomic. Bone marrow signal/fracture: No evidence of pathologic marrow infiltration. No evidence of prior fracture. Conus: The conus is within normal limits of signal intensity and morphology terminating at the L1-L2 disc space level. Paraspinal soft tissues: Paraspinal soft tissues are within normal limits. Lower thoracic spine: Visualized lower thoracic canal and foramina are patent. T12-L1: Canal and foramina are patent. L1-L2: Canal and foramina are patent. L2-L3: Canal and foramina are patent. L3-L4: Minimal disc desiccation. Patent spinal canal and neural foramen.. . L4-L5: Minimal disc desiccation. Patent spinal canal and neural foramen. L5-S1: Small left extraforaminal disc protrusion effacing the fat along the ventral margin of the exiting left L5 nerve root (series 7, image 17). Patent spinal canal. Sacrum and iliac wings: The visualized sacrum and iliac wings are within normal limits. IMPRESSION: Small left L5-S1 extraforaminal disc protrusion abutting the ventral margin of the left L5 nerve root. Anatomic Variant: None. L4-5 is considered the level of the iliac crest and assume there are 5 lumbar-type vertebrae. Profiler Hand: MARY Transcribe Date/Time: Dec 08 2017 12:21P Dictated by : ESAU BARRON MD This examination was interpreted and the report reviewed and electronically signed by: ESAU BARRON MD on Dec 08 2017 12:29PM EST [id number] MRI HIP WO IVCON LT Observed: 12/08/2017 Status: F Source: [place] 9:33 AM [facility] REPOSITORY * * *Final Report* * * DATE OF EXAM: Dec 08 2017 9:33AM WRM 0206 - MRI HIP WO IVCON LT / PROCEDURE REASON: Localized swelling, mass and lump, left lower limb * * * * Physician Interpretation * * * * History: . Localized swelling, mass and lump, left lower limb . Lump posterior lt hip area x3 months painful to tuch \EandE\ has gotten bigger Technique: Routine MRI of the pelvis ; Musculoskeletal mass protocol. Comparison: 09/28/2017 Result: There is no abnormality underlying the marker, which was placed to localize the patient's pain/lump. HIP JOINTS: Right hip: Large field of view images of this joint limits evaluation of articular structures. Left hip: Large field of view images of this joint limits evaluation of articular structures. SI JOINTS: Normal appearing sacroiliac joints bilaterally. BONE MARROW: There is no evidence of fracture, bone bruise, marrow replacing lesion or osteonecrosis. TENDONS: The rectus femoris tendons, iliopsoas tendons, hamstring tendons, hip adductor and abductor tendons appear to be intact bilaterally. MUSCLE: Muscle bulk and signal intensity are within normal limits. NERVES: The visualized portions of the lumbosacral plexus and sciatic nerves appear to be within normal limits. VISCERAL PELVIS: Limited evaluation of the visceral pelvis is unremarkable. OTHER: Only the right ovary is visualized. No other significant abnormality identified. IMPRESSION: NO MASS OR UNDERLYING LESION TO EXPLAIN THE PATIENT'S SYMPTOMS. Profiler Hand: MARY Transcribe Date/Time: Dec 08 2017 9:53A Dictated by : DARLINE DAVIS MD This examination was interpreted and the report reviewed and electronically signed by: SHERRY ANGULO MD on Dec 08 2017 8:28PM EST [id number] PROGRESS Observed: 11/15/2017 Status: COMPLETED Source: [place] 12:22 PM [facility] REPOSITORY HNO ID: [id number] Author: Cherry Veloz (Pa) Service: (none) Author Type: Physician Frame Hand Type: Progress Notes Filed: 11/15/2017 12:34 PM Note Text: Cherry Veloz PA-C Department of Orthopaedics Orthopaedics [address] [facility] [address] Dept: [phone] Dept November 15, 2017 CHIEF COMPLAINT: New Patient (Left hip pain) HPI: Ms. Kaya Arce is a 32 year old female. She presents with left hip pain for the past 3 months. The patient tells me that in July she fell getting into a bathtub and landed on her right hip. Patient noticed a couple days following a fall that she had a lump on her left hip. The lump is tender to palpation and causes 5 out of 10 sharp, radiating pain that is worse with flexion of the thigh. The pain occasionally radiates from the left hip laterally down the leg to the knee. The patient notes some intermittent numbness in the top of her left foot. The patient was seen at the urgent care and had a negative hip x-ray as well as a CT scan. Patient reports that her CT scan showed bursitis of her left hip. She was placed on high-dose steroids for several weeks. The patient followed up with her primary care after her trip to urgent care, her primary care provider had her see physical therapy. The patient reports completing 6 weeks of physical therapy without any relief in her symptoms. The patient was seen by Dr. Fitzgerald who tried to obtain an MRI of her left hip, but the MRI was not approved by her insurance company. The patient tells me that she has ankylosing spondylitis, she was given Humira by another provider but is reluctant to start the medication as she is unsure how little fact the lump on her left hip. ASSESSMENT: M54.32 Left sciatic nerve pain (primary encounter diagnosis) R22.42 Mass of hip region, left PLAN: The patient has a palpable mass in her left hip just posterior to the greater trochanter. We will order an MRI for further evaluation of the mass. The patient also has some symptoms that are consistent with lumbar radiculopathy. She has already had a lumbar x-ray is unremarkable and completed a steroid taper and physical therapy neither which were of benefit. We will order an MRI of her lumbar spine. FOLLOW UP INSTRUCTIONS: Following MRI. Ms. Kaya Arce was advised as to contrast therapies and/or to take analgesics/anti-inflammatories as needed and all contraindications were reviewed. OBJECTIVE: Ms. Kaya Arce is a pleasant 32 year old in no apparent distress. Gen:BP 113/76 Pulse 77 Ht 5' 2 (1.58m) Wt 179 lb 6.4 oz (81.4kg) BMI 32.80 kg/(m2). nl development, obese, no deformities ENT: Normocephalic, normal hearing, moist mucosa CV: Pulses:DP/PT= 2+ and symmetric, capillary refill < 2 secs, no peripheral edema/varicosities Skin: no rash, bruising or lesions. Good turgor. Psych: cooperative and appropriate, alert and oriented x 3, good mood and affect. Musculoskeletal: HIP EXAM: Left: ROM: Extension: full extension Flexion: 110 degrees Internal Rotation: 40 degrees External Rotation: 45 degrees Abduction: 40 degrees Adduction: 35 degrees Strength: Pain with resisted hip flexion Palpation: Tender palpable mass just posterior to the left greater trochanter. Pain on palpation of the left SI joint. No pain on palpation of the left greater trochanter. Log roll: painful. Straight leg raise: Negative Neurovascular Status: Sensation Intact, Moves foot and ankle up AND down and 2+ dorsalis pedis IMAGING: [facility] lumbar spine x-ray September 282017 impression: Normal lumbar lordosis. There is no substantial scoliosis. There is normal alignment of the vertebra. There is limited flexion and extension with no abnormal motion. Normal vertebral bodies and endplates. Normal disc space heights. Normal bilateral sacral ala, sacroiliac joints and visualized sacrum. Normal visualized soft tissue structures. [facility] left hip and pelvis September 28, 2017 Impression: Normal bilateral iliac wings, sacroiliac joints and visualized sacrum. Normal bilateral superior and inferior pubic rami. Normal pubic symphysis. Normal bilateral ischial tuberosities. Normal visualized femoral head normal acetabulum and normal hip joint. [facility] left hip and pelvis CT scan August 27, 2017 Impression. Normal visualized osseous pelvis and left hip/femur. Damion 2 x 2 centimeters follicular cyst and right ovary. The uterus is unremarkable. Of the left ovary is not visualized. No demonstrated left pelvic or groin masses. Supporting Subjective Information Below: Past Medical History: PAST MEDICAL HISTORY Diagnosis Date - Abnormal glandular Papanicolaou smear of cervix Abn. Pap smear (cervix) - Abnormal maternal glucose tolerance, antepartum 2003 diet controlled - Allergic rhinitis, cause unspecified Allergic rhinitis - Anal fissure - Ankylosis spondylitis - Back pain - Calculus of kidney 2008 4 stones, followed by Dr. 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 [facility] - Unspecified asthma(493.90) Past Surgical History: PAST SURGICAL HISTORY Procedure Laterality Date - CERVIX UTERI CONIZA LP ELCTRO EXCI 2001 LEEP-Cervix - DELIVERY ONLY 2003 , low cervical - COLONOSCOP W/ OR W/O [facility] SPEC 1986 Colonoscopy - COLONOSCOP W/ OR W/O [facility] SPEC 06/20/2014 Colonoscopy - ESWL X1 - F SALPINGO-OOPHORECTOMY 08/21/14 LEFT only - PAST SURGICAL HISTORY OF WISDOM TEETH - PAST SURGICAL HISTORY OF < 1 yr old bilat inguinal hernia repair - SIGMOIDOSCOPY FLEX DIAG Sigmoidoscopy, flexible Family History: FAMILY HISTORY Problem Relation Age of Onset - Prostate Cancer Maternal Grandfather - Cancer Maternal Grandfather leukemia - other (parkinsons) Maternal Grandfather - Coronary Artery Disease Paternal Grandfather 48 suddenly - Diabetes Paternal Grandmother - Lipids Mother - Osteoporosis Mother - other (CHF) Mother - Lipids Father - Hypertension Father - other (kidney stones) Father - other (CHF) Father - other (spastic 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) Son - Breast Cancer Maternal Grandmother age 90 - other (down syndrome) Paternal Uncle Social History:Social History Marital status: Single Spouse name: Years of education: 13 Number of children: 1 Occupational History Occupation Employer Comment [employer]OMEM[employer] Social History Main Topics Smoking status: Never Smoker Smokeless tobacco: Never Used Alcohol use: No Comment: Seldom Drug use: No Sexual activity: Yes Partners with: Male control/protection: Condom Comment: no tatoos, no transfusions Other Topics Concern Service No Blood Transfusions No Caffeine Concern No Occupational Exposure No Hobby Hazards No Sleep Concern Yes Stress Concern Yes Weight Concern Yes Special Diet Yes Back Care Yes Exercise Yes Bike Helmet Yes Seat Belt Yes Self-Exams Yes Social History Narrative Single 1 son age 2 Lives in [facility] with son, from [facility] 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 triamcinolone acetonide (KENALOG) 0.1 % cream Apply 1 application to affected area twice daily. atenolol (TENORMIN) 25 mg tablet TAKE 1 TABLET BY MOUTH ONCE DAILY. medroxyPROGESTERone (PROVERA, CYCRIN) 10 mg tablet Take 10 mg by mouth once daily. HYDROCORTISONE TOPICAL Apply to affected area. omeprazole (PRILOSEC) 20 mg capsule TAKE 1 CAPSULE BY MOUTH ONCE DAILY. lidocaine (XYLOCAINE) 2 % jelly Apply 1 application to affected area as directed. diazePAM (VALIUM) 5 mg tablet Take 1 tablet by mouth once daily as needed. dexamethasone (DECADRON) 1 mg tablet Take 1 mg by mouth once daily as needed. magnesium hydroxide (MILK OF MAGNESIA) 400 mg/5 mL suspension Take 5 mL by mouth once daily as needed. docusate sodium (COLACE) 100 mg capsule Take 100 mg by mouth twice daily as needed. Simethicone (GAS FREE EXTRA STRENGTH) 125 mg cap Take 1 tablet by mouth three times daily as needed. hydrocortisone (HEMORRHOIDAL HC) 25 mg suppository 1 Suppository by RECTAL route twice daily as needed. Insert one (1) in the rectum each night before bed. Tranexamic Acid 650 mg tab Take 2 tablets by mouth three times daily as needed (until bleeding slows or stops for up to 5 days). ondansetron (ZOFRAN, HYDROCHLORIDE,) 4 mg tablet Take 4 mg by mouth every 8 hours as needed. COMPOUNDED PRESCRIPTION Apply to affected area. Nifedipine 0.3% apply to anal area twice daily. albuterol 90 mcg/actuation Aero Inhale 2 Puffs as instructed every 4 hours as needed (shortness of breath). cetirizine 10 mg tablet Take 1 tablet by mouth once daily. MULTI-VITAMIN ORAL Take by mouth once daily. 2 tablets daily diclofenac potassium (CATAFLAM) 50 mg tablet Take 50 mg by mouth three times daily. No current facility-administered medications for this visit. Allergies: Bees; Doxycycline; Eucalyptus; Flexeril [Cyclobenzaprine]; Keflex [Cephalexin]; Latex; Minocycline; Nitroglycerin Suppositories [Other]; Nsaids (Non-Steroidal Anti-Inflammatory Drug); Tizanidine; Vicodin [Hydrocodone-Acetaminophen] ROS: General (negative for fatigue, malaise, weight loss/gain) HEENT (negative for headache, earache, recent vision changes, sinus pain, sore throat) Respiratory (no recent shortness of breath, hemoptysis) CV (negative for chest tightness, palpitations) Musculoskeletal (see HPI) Psych (no depression, anxiety) REFERRING PHYSICIAN: Ms. Kaya Arce was referred to me for consultation by the following physician. This consultation note will be sent to the following physician by either mail or electronic medical record. SELF Rudy Curran, DO [address] [facility] [id number] This note was partially generated using [employer] voice recognition system, and there may be some incorrect words, spellings, and punctuation that were not noted in checking the note before saving. Cherry Veloz PA-C PROGRESS Observed: 11/15/2017 Status: COMPLETED Source: [place] 9:48 AM 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 Curran referring patient today. Patient states in July she was unable to walk. Fell getting into her bathtub and landed on her right hip. A couple of days later she had a lump on her left hip. Had x- rays and CT scan done. Her PCP had tried a high dose of steroids and did not help. He tried to aspirate it but only got blood from it. Referred to Dr. Arriaga. He told her she had bursitis and referred her to PT. PT only helped with strengthening. Ordered an MRI and was denied. Her PCP referred her to Dr. Gamboa and she ordered more x-rays. She is no longer taking her insurance and referred here. Patient states she has lump on the lateral aspect of her left hip below her buttock. . She has pain at times that radiates down her leg and groin. Has Lidocaine patches that helps when needed. Patient hand carried copies of X-ray and CT to appointment. Patient also states she fell a couple of days ago and landed on her hands. She is having pain in her right 5th finger and left 2nd finger. She is currently not working. SHARAN Observed: 11/15/2017 Status: COMPLETED Source: [place] 9:40 AM 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 Curran referring patient today. Patient states in July she was unable to walk. Fell getting into her bathtub and landed on her right hip. A couple of days later she had a lump on her left hip. Had x-rays and CT scan done. Her PCP had tried a high dose of steroids and did not help. He tried to aspirate it but only got blood from it. Referred to Dr. Arriaga. He told her she had bursitis and referred her to PT. PT only helped with strengthening. Ordered an MRI and was denied. Her PCP referred her to Dr. Gamboa and she ordered more x-rays. She is no longer taking her insurance and referred here. Patient states she has lump on the lateral aspect of her left hip below her buttock. . She has pain at times that radiates down her leg and groin. Has Lidocaine patches that helps when needed. Patient hand carried copies of X-ray and CT to appointment. Patient also states she fell a couple of days ago and landed on her hands. She is having pain in her right 5th finger and left 2nd finger. She is currently not working. Cherry Veloz PA-C 11/15/2017 12:34 PM Signed Cherry Veloz PA-C Department of Orthopaedics Orthopaedics [address] [place] [id number] Dept: [phone] Dept November 15, 2017 CHIEF COMPLAINT: New Patient (Left hip pain) HPI: Ms. Kaya Arce is a 32 year old female. She presents with left hip pain for the past 3 months. The patient tells me that in July she fell getting into a bathtub and landed on her right hip. Patient noticed a couple days following a fall that she had a lump on her left hip. The lump is tender to palpation and causes 5 out of 10 sharp, radiating pain that is worse with flexion of the thigh. The pain occasionally radiates from the left hip laterally down the leg to the knee. The patient notes some intermittent numbness in the top of her left foot. The patient was seen at the urgent care and had a negative hip x-ray as well as a CT scan. Patient reports that her CT scan showed bursitis of her left hip. She was placed on high-dose steroids for several weeks. The patient followed up with her primary care after her trip to urgent care, her primary care provider had her see physical therapy. The patient reports completing 6 weeks of physical therapy without any relief in her symptoms. The patient was seen by Dr. Fitzgerald who tried to obtain an MRI of her left hip, but the MRI was not approved by her insurance company. The patient tells me that she has ankylosing spondylitis, she was given Humira by another provider but is reluctant to start the medication as she is unsure how little fact the lump on her left hip. ASSESSMENT: M54.32 Left sciatic nerve pain (primary encounter diagnosis) R22.42 Mass of hip region, left PLAN: The patient has a palpable mass in her left hip just posterior to the greater trochanter. We will order an MRI for further evaluation of the mass. The patient also has some symptoms that are consistent with lumbar radiculopathy. She has already had a lumbar x-ray is unremarkable and completed a steroid taper and physical therapy neither which were of benefit. We will order an MRI of her lumbar spine. FOLLOW UP INSTRUCTIONS: Following MRI. Ms. Kaya Arce was advised as to contrast therapies and/or to take analgesics/anti-inflammatories as needed and all contraindications were reviewed. OBJECTIVE: Ms. Kaya Arce is a pleasant 32 year old in no apparent distress. Gen:BP 113/76 Pulse 77 Ht 5' 2 (1.58m) Wt 179 lb 6.4 oz (81.4kg) BMI 32.80 kg/(m2). nl development, obese, no deformities ENT: Normocephalic, normal hearing, moist mucosa CV: Pulses:DP/PT= 2+ and symmetric, capillary refill < 2 secs, no peripheral edema/varicosities Skin: no rash, bruising or lesions. Good turgor. Psych: cooperative and appropriate, alert and oriented x 3, good mood and affect. Musculoskeletal: HIP EXAM: Left: ROM: Extension: full extension Flexion: 110 degrees Internal Rotation: 40 degrees External Rotation: 45 degrees Abduction: 40 degrees Adduction: 35 degrees Strength: Pain with resisted hip flexion Palpation: Tender palpable mass just posterior to the left greater trochanter. Pain on palpation of the left SI joint. No pain on palpation of the left greater trochanter. Log roll: painful. Straight leg raise: Negative Neurovascular Status: Sensation Intact, Moves foot and ankle up AND down and 2+ dorsalis pedis IMAGING: [facility] lumbar spine x-ray September 282017 impression: Normal lumbar lordosis. There is no substantial scoliosis. There is normal alignment of the vertebra. There is limited flexion and extension with no abnormal motion. Normal vertebral bodies and endplates. Normal disc space heights. Normal bilateral sacral ala, sacroiliac joints and visualized sacrum. Normal visualized soft tissue structures. [facility] left hip and pelvis September 28, 2017 Impression: Normal bilateral iliac wings, sacroiliac joints and visualized sacrum. Normal bilateral superior and inferior pubic rami. Normal pubic symphysis. Normal bilateral ischial tuberosities. Normal visualized femoral head normal acetabulum and normal hip joint. [facility] left hip and pelvis CT scan August 27, 2017 Impression. Normal visualized osseous pelvis and left hip/femur. Damion 2 x 2 centimeters follicular cyst and right ovary. The uterus is unremarkable. Of the left ovary is not visualized. No demonstrated left pelvic or groin masses. Supporting Subjective Information Below: Past Medical History: PAST MEDICAL HISTORY Diagnosis Date - Abnormal glandular Papanicolaou smear of cervix Abn. Pap smear (cervix) - Abnormal maternal glucose tolerance, antepartum 2003 diet controlled - Allergic rhinitis, cause unspecified Allergic rhinitis - Anal fissure - Ankylosis spondylitis - Back pain - Calculus of kidney 2007 4 stones, followed by Dr. 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 [facility] - Unspecified asthma(493.90) Past Surgical History: PAST SURGICAL HISTORY Procedure Laterality Date - CERVIX UTERI CONIZA LP ELCTRO EXCI 2001 LEEP-Cervix - DELIVERY ONLY 2003 , low cervical - COLONOSCOP W/ OR W/O [facility] SPEC 1986 Colonoscopy - COLONOSCOP W/ OR W/O [facility] SPEC 06/20/2014 Colonoscopy - ESWL X1 - F SALPINGO-OOPHORECTOMY 08/21/14 LEFT only - PAST SURGICAL HISTORY OF WISDOM TEETH - PAST SURGICAL HISTORY OF < 1 yr old bilat inguinal hernia repair - SIGMOIDOSCOPY FLEX DIAG Sigmoidoscopy, flexible Family History: FAMILY HISTORY Problem Relation Age of Onset - Prostate Cancer Maternal Grandfather - Cancer Maternal Grandfather leukemia - other (parkinsons) Maternal Grandfather - Coronary Artery Disease Paternal Grandfather 48 suddenly - Diabetes Paternal Grandmother - Lipids Mother - Osteoporosis Mother - other (CHF) Mother - Lipids Father - Hypertension Father - other (kidney stones) Father - other (CHF) Father - other (spastic 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) Son - Breast Cancer Maternal Grandmother age 90 - other (down syndrome) Paternal Uncle Social History:Social History Marital status: Single Spouse name: Years of education: 13 Number of children: 1 Occupational History Occupation Employer Comment [employer]OMEM[employer] Social History Main Topics Smoking status: Never Smoker Smokeless tobacco: Never Used Alcohol use: No Comment: Seldom Drug use: No Sexual activity: Yes Partners with: Male control/protection: Condom Comment: no tatoos, no transfusions Other Topics Concern Service No Blood Transfusions No Caffeine Concern No Occupational Exposure No Hobby Hazards No Sleep Concern Yes Stress Concern Yes Weight Concern Yes Special Diet Yes Back Care Yes Exercise Yes Bike Helmet Yes Seat Belt Yes Self-Exams Yes Social History Narrative Single 1 son age 2 Lives in [facility] with son, from tr 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 triamcinolone acetonide (KENALOG) 0.1 % cream Apply 1 application to affected area twice daily. atenolol (TENORMIN) 25 mg tablet TAKE 1 TABLET BY MOUTH ONCE DAILY. medroxyPROGESTERone (PROVERA, CYCRIN) 10 mg tablet Take 10 mg by mouth once daily. HYDROCORTISONE TOPICAL Apply to affected area. omeprazole (PRILOSEC) 20 mg capsule TAKE 1 CAPSULE BY MOUTH ONCE DAILY. lidocaine (XYLOCAINE) 2 % jelly Apply 1 application to affected area as directed. diazePAM (VALIUM) 5 mg tablet Take 1 tablet by mouth once daily as needed. dexamethasone (DECADRON) 1 mg tablet Take 1 mg by mouth once daily as needed. magnesium hydroxide (MILK OF MAGNESIA) 400 mg/5 mL suspension Take 5 mL by mouth once daily as needed. docusate sodium (COLACE) 100 mg capsule Take 100 mg by mouth twice daily as needed. Simethicone (GAS FREE EXTRA STRENGTH) 125 mg cap Take 1 tablet by mouth three times daily as needed. hydrocortisone (HEMORRHOIDAL HC) 25 mg suppository 1 Suppository by RECTAL route twice daily as needed. Insert one (1) in the rectum each night before bed. Tranexamic Acid 650 mg tab Take 2 tablets by mouth three times daily as needed (until bleeding slows or stops for up to 5 days). ondansetron (ZOFRAN, HYDROCHLORIDE,) 4 mg tablet Take 4 mg by mouth every 8 hours as needed. COMPOUNDED PRESCRIPTION Apply to affected area. Nifedipine 0.3% apply to anal area twice daily. albuterol 90 mcg/actuation Aero Inhale 2 Puffs as instructed every 4 hours as needed (shortness of breath). cetirizine 10 mg tablet Take 1 tablet by mouth once daily. MULTI-VITAMIN ORAL Take by mouth once daily. 2 tablets daily diclofenac potassium (CATAFLAM) 50 mg tablet Take 50 mg by mouth three times daily. No current facility-administered medications for this visit. Allergies: Bees; Doxycycline; Eucalyptus; Flexeril [Cyclobenzaprine]; Keflex [Cephalexin]; Latex; Minocycline; Nitroglycerin Suppositories [Other]; Nsaids (Non-Steroidal Anti-Inflammatory Drug); Tizanidine; Vicodin [Hydrocodone-Acetaminophen] ROS: General (negative for fatigue, malaise, weight loss/gain) HEENT (negative for headache, earache, recent vision changes, sinus pain, sore throat) Respiratory (no recent shortness of breath, hemoptysis) CV (negative for chest tightness, palpitations) Musculoskeletal (see HPI) Psych (no depression, anxiety) REFERRING PHYSICIAN: Ms. Kaya Arce was referred to me for consultation by the following physician. This consultation note will be sent to the following physician by either mail or electronic medical record. SELF Rudy Curran DO [address] [facility] BELINDA Herrera [facility] [id number] This note was partially generated using [employer] voice recognition system, and there may be some incorrect words, spellings, and punctuation that were not noted in checking the note before saving. Cherry Veloz PA-C Referring Provider: SELF [[id number]] Allergies As of Date: 11/15/2017 Noted Allergy Reaction BEES 06/18/2010 4 - Hives 7 - Swelling DOXYCYCLINE 09/26/2008 8 - GI Upset Comments: Not able to tolerate due to GI effects EUCALYPTUS 06/07/2007 Comments: tachycardia close airway FLEXERIL (CYCLOBENZAPRINE) 04/28/2012 1 - Mental Status Change Comments: Made patient feel worse than before KEFLEX (CEPHALEXIN) 05/09/2002 4 - Hives 10 - Anaphylaxis LATEX 08/15/2008 7 - Swelling MINOCYCLINE 03/07/2008 8 - GI Upset nitroglycerin suppositories [Othe*01/31/2008 NSAIDS (NON-STEROIDAL ANTI-INFLAM*2015 5 - Intolerance TIZANIDINE 12/04/2010 1 - Mental Status Change Comments: Low HR, cold and clammy (subjective only) VICODIN (HYDROCODONE-ACETAMINOPHE*03/31/2010 9 - Itching Date Reviewed: 11/15/2017 Reviewed by: Cherry Veloz (Pa) - Fully Assessed Reason for Visit: New Patient [172] Cmt: Left hip pain Primary Visit Diagnosis:Left sciatic nerve pain [M54.32] Other Visit Diagnosis:Mass of hip region, left [R22.42] Order(s):MRI LUMBAR SPINE WO IVCON [[id number]] Order #: [id number] FUTURE MRI HIP WO IVCON LT [[id number]] Order #: [id number] FUTURE Prescriptions as of 11/15/2017 Sig: POTASSIUM CHLORIDE ER 10 MEQ * Take 2 tablets by mouth once * TRIAMCINOLONE ACETONIDE 0.1 %* Apply 1 application to affect* ATENOLOL 25 MG TABLET TAKE 1 TABLET BY MOUTH ONCE D* MEDROXYPROGESTERONE 10 MG TAB* Take 10 mg by mouth once sienna* HYDROCORTISONE TOPICAL Apply to affected area. OMEPRAZOLE 20 MG CAPSULE,JACQUE* TAKE 1 CAPSULE BY MOUTH ONCE * LIDOCAINE 2 % MUCOSAL JELLY Apply 1 application to affect* DIAZEPAM 5 MG TABLET Take 1 tablet by mouth once d* DEXAMETHASONE 1 MG TABLET Take 1 mg by mouth once daily* MAGNESIUM HYDROXIDE 400 MG/5 * Take 5 mL by mouth once daily* DOCUSATE SODIUM 100 MG CAPSULE Take 100 mg by mouth twice da* SIMETHICONE 125 MG CAPSULE Take 1 tablet by mouth three * HYDROCORTISONE ACETATE 25 MG * 1 Suppository by RECTAL route* TRANEXAMIC ACID 650 MG TABLET Take 2 tablets by mouth three* ONDANSETRON HCL 4 MG TABLET Take 4 mg by mouth every 8 ho* COMPOUNDED PRESCRIPTION Apply to affected area. Nife* ALBUTEROL 90 MCG/ACTUATION AE* Inhale 2 Puffs as instructed * * CETIRIZINE 10 MG TABLET Take 1 tablet by mouth once d* * MULTI-VITAMIN ORAL Take by mouth once daily. 2 * DICLOFENAC POTASSIUM 50 MG TA* Take 50 mg by mouth three florentin* Problem List As Of Date 11/15/2017 Noted Resolved PAIN IN JOINT, LOWER LEG [M25.569] INVALID FOR*01/24/2008 ASTHMA UNSPECIFIED [J45.909] INVALID FOR* Priority: Mild CHRONIC RHINITIS [J31.0] INVALID FOR* DYSMETABOLIC SYNDROME X [E88.81] INVALID FOR* Priority: Moderate More... IBS (IRRITABLE BOWEL SYNDROME) [K58.9] INVALID FOR* ANAL FISSURE [K60.2] BENIGN NEOPLASM LG BOWEL [D12.6] RECTAL AND ANAL HEMORRHAGE [K62.5] 08/01/2008 ESOPHAGEAL REFLUX [K21.9] DEVIATED NASAL SEPTUM [J34.2] INVALID FOR* POLYCYSTIC OVARIES [E28.2] INVALID FOR* Urinary calculus, unspecified [N20.9] INVALID FOR*10/06/2017 Priority: Mild More... IMPAIRED FASTING GLUCOSE [R73.01] INVALID FOR* Priority: Mild ABN GLUCOSE-ANTEPARTUM [O99.810] 08/01/2008 More... THROMBOS HEMORRHOIDS NOS [K64.5] INVALID FOR* Priority: Mild More... Routine general medical examination at a health*INVALID FOR*11/21/2011 Priority: Mild Class: Chronic More... ROUTINE MELT HELPER EXAMINATION [Z01.419] INVALID FOR*08/15/2008 Class: Chronic More... HX OF CERVICAL DYSPLASIA [Z87.410] INVALID FOR* More... ANXIETY STATE NOS [F41.1] INVALID FOR* Priority: Moderate More... PREV DELIVERY NOS-ANTEPART [O34.219] INVALID FOR* POOR GRTH-ANTEPART [O36.5990] INVALID FOR*09/26/2008 Routine gynecological examination [Z01.419] INVALID FOR*11/21/2011 Class: Chronic More... HIDRADENITIS [L73.2] INVALID FOR* Priority: Moderate More... 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 Pyoderma, unspecified [L08.0] INVALID FOR*05/21/2016 Pain in joint, lower leg [M25.569] INVALID FOR* Headache [R51] INVALID FOR* Lumbago [M54.5] INVALID FOR* Spasm of muscle [M62.838] INVALID FOR*10/06/2017 Adrenal insufficiency [E27.40] Muscle spasm [M62.838] INVALID FOR* Calculus of kidney [N20.0] INVALID FOR* Lyme disease [A69.20] INVALID FOR* Seborrheic Dermatitis [L21.8] INVALID FOR* Xerosis cutis [L85.3] INVALID FOR*05/21/2016 Calculus of ureter [N20.1] INVALID FOR* Pyoderma [L08.0] INVALID FOR*05/21/2016 Pruritus [L29.9] INVALID FOR*05/21/2016 Monilial vulvovaginitis [B37.3] INVALID FOR* Migraine without aura, with intractable migrain*INVALID FOR* Microhematuria [R31.29] INVALID FOR* Flank pain [R10.9] INVALID FOR* Female stress incontinence [N39.3] INVALID FOR* Menstrual irregularity [N92.6] INVALID FOR* Palpitations [R00.2] INVALID FOR* Backache, unspecified [M54.9] INVALID FOR*10/06/2017 Anorectal polyp [K62.0, K62.1] INVALID FOR* Low back pain [M54.5] INVALID FOR*10/06/2017 Buttock pain [M79.1] INVALID FOR*10/06/2017 Lumbosacral neuritis [M54.17] INVALID FOR* Gross hematuria [R31.0] INVALID FOR* History of kidney stones [Z87.442] INVALID FOR* Straining on urination [R39.16] INVALID FOR* Hesitancy [R39.11] INVALID FOR* Difficulty voiding [R39.198] INVALID FOR* Chronic pelvic pain in female [R10.2, G89.29] INVALID FOR* Endometriosis [N80.9] INVALID FOR* Obesity, Class I, BMI 30-34.9 [E66.9] INVALID FOR* Encounter Status:Closed by CHERRY VELOZ PA-C on 11/15/17 PROGRESS Observed: 11/09/2017 Status: COMPLETED Source: [place] 8:47 AM [facility] REPOSITORY HNO ID: [id number] Author: Juan Luis Herrera ([facility]) Efraín Service: (none) Author Type: Rn Allergy Type: Progress Notes Filed: 11/09/2017 8:48 AM Note Text: Preliminary report complete; results under cardiac tab. T. Esau Kenny, [facility] EKG1 Observed: 11/09/2017 Status: F Source: [place] 8:44 AM [facility] REPOSITORY NAME : KAYA ARCE PID : [id number] : 1985 Gender : Female Race : ORD : Procedure Date : Nov 09 2017 08:44:27 Edit Date : Nov 10 2017 07:56:48 Diagnosis:NORMAL SINUS RHYTHM NORMAL ECG Confirmed by REPORT, SEE GXT ([id number]), fashion editor DONALD CUEVAS ([id number]) on 11/10/2017 7:56:39 AM Ventricular Rate : 63 BPM Atrial Rate : 63 BPM P-R Interval : 118 ms QRS Duration : 100 ms Q-T Interval : 424 ms QTC Calculation(Bezet) : 433 ms P [place] : 44 degrees R [place] : 80 degrees T [place] : 75 degrees Test Reason : Location : 184 : WOGXT Overread By : REPORT,SEE GXT Edited By : DONALD CUEVAS Referred By : , Acquired by : , CNNURSE Observed: 11/09/2017 Status: COMPLETED Source: [place] 8:00 AM [facility] REPOSITORY Nurse Visit (CAWSTR) KAYA ARCE ([id number]) 1985 F Date Time Provider Department 11/09/17 8:00 AM [facility] During your visit today, we recorded the following information about you: TERRY Forde 11/09/2017 8:48 AM Signed Preliminary report complete; results under cardiac tab. TERRY Forde Referring Provider: STERLING STERN [[id number]] Allergies As of Date: 11/09/2017 Noted Allergy Reaction BEES 06/18/2010 4 - Hives 7 - Swelling DOXYCYCLINE 09/26/2008 8 - GI Upset Comments: Not able to tolerate due to GI effects EUCALYPTUS 06/07/2007 Comments: tachycardia close airway FLEXERIL (CYCLOBENZAPRINE) 04/28/2012 1 - Mental Status Change Comments: Made patient feel worse than before KEFLEX (CEPHALEXIN) 05/09/2002 4 - Hives 10 - Anaphylaxis LATEX 08/15/2008 7 - Swelling MINOCYCLINE 03/07/2008 8 - GI Upset nitroglycerin suppositories [Othe*01/31/2008 NSAIDS (NON-STEROIDAL ANTI-INFLAM*2015 5 - Intolerance TIZANIDINE 12/04/2010 1 - Mental Status Change Comments: Low HR, cold and clammy (subjective only) VICODIN (HYDROCODONE-ACETAMINOPHE*03/31/2010 9 - Itching Date Reviewed: 11/04/2017 Reviewed by: Yolanda Almonte LPN - Fully Assessed Primary Visit Diagnosis:Palpitations [R00.2] Other Visit Diagnosis:Vasovagal syncope [R55] Prescriptions as of 11/09/2017 Sig: POTASSIUM CHLORIDE ER 10 MEQ * Take 2 tablets by mouth once * TRIAMCINOLONE ACETONIDE 0.1 %* Apply 1 application to affect* ATENOLOL 25 MG TABLET TAKE 1 TABLET BY MOUTH ONCE D* DICLOFENAC POTASSIUM 50 MG TA* Take 50 mg by mouth three florentin* MEDROXYPROGESTERONE 10 MG TAB* Take 10 mg by mouth once sienna* HYDROCORTISONE TOPICAL Apply to affected area. OMEPRAZOLE 20 MG CAPSULE,JACQUE* TAKE 1 CAPSULE BY MOUTH ONCE * LIDOCAINE 2 % MUCOSAL JELLY Apply 1 application to affect* DIAZEPAM 5 MG TABLET Take 1 tablet by mouth once d* DEXAMETHASONE 1 MG TABLET Take 1 mg by mouth once daily* MAGNESIUM HYDROXIDE 400 MG/5 * Take 5 mL by mouth once daily* DOCUSATE SODIUM 100 MG CAPSULE Take 100 mg by mouth twice da* SIMETHICONE 125 MG CAPSULE Take 1 tablet by mouth three * HYDROCORTISONE ACETATE 25 MG * 1 Suppository by RECTAL route* TRANEXAMIC ACID 650 MG TABLET Take 2 tablets by mouth three* ONDANSETRON HCL 4 MG TABLET Take 4 mg by mouth every 8 ho* COMPOUNDED PRESCRIPTION Apply to affected area. Nife* ALBUTEROL 90 MCG/ACTUATION AE* Inhale 2 Puffs as instructed * * CETIRIZINE 10 MG TABLET Take 1 tablet by mouth once d* * MULTI-VITAMIN ORAL Take by mouth once daily. 2 * Problem List As Of Date 11/09/2017 Noted Resolved PAIN IN JOINT, LOWER LEG [M25.569] INVALID FOR*01/24/2008 ASTHMA UNSPECIFIED [J45.909] INVALID FOR* Priority: Mild CHRONIC RHINITIS [J31.0] INVALID FOR* DYSMETABOLIC SYNDROME X [E88.81] INVALID FOR* Priority: Moderate More... IBS (IRRITABLE BOWEL SYNDROME) [K58.9] INVALID FOR* ANAL FISSURE [K60.2] BENIGN NEOPLASM LG BOWEL [D12.6] RECTAL AND ANAL HEMORRHAGE [K62.5] 08/01/2008 ESOPHAGEAL REFLUX [K21.9] DEVIATED NASAL SEPTUM [J34.2] INVALID FOR* POLYCYSTIC OVARIES [E28.2] INVALID FOR* Urinary calculus, unspecified [N20.9] INVALID FOR*10/06/2017 Priority: Mild More... IMPAIRED FASTING GLUCOSE [R73.01] INVALID FOR* Priority: Mild ABN GLUCOSE-ANTEPARTUM [O99.810] 08/01/2008 More... THROMBOS HEMORRHOIDS NOS [K64.5] INVALID FOR* Priority: Mild More... Routine general medical examination at a health*INVALID FOR*11/21/2011 Priority: Mild Class: Chronic More... ROUTINE MELT HELPER EXAMINATION [Z01.419] INVALID FOR*08/15/2008 Class: Chronic More... HX OF CERVICAL DYSPLASIA [Z87.410] INVALID FOR* More... ANXIETY STATE NOS [F41.1] INVALID FOR* Priority: Moderate More... PREV DELIVERY NOS-ANTEPART [O34.219] INVALID FOR* POOR GRTH-ANTEPART [O36.5990] INVALID FOR*09/26/2008 Routine gynecological examination [Z01.419] INVALID FOR*11/21/2011 Class: Chronic More... HIDRADENITIS [L73.2] INVALID FOR* Priority: Moderate More... 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 Pyoderma, unspecified [L08.0] INVALID FOR*05/21/2016 Pain in joint, lower leg [M25.569] INVALID FOR* Headache [R51] INVALID FOR* Lumbago [M54.5] INVALID FOR* Spasm of muscle [M62.838] INVALID FOR*10/06/2017 Adrenal insufficiency [E27.40] Muscle spasm [M62.838] INVALID FOR* Calculus of kidney [N20.0] INVALID FOR* Lyme disease [A69.20] INVALID FOR* Seborrheic Dermatitis [L21.8] INVALID FOR* Xerosis cutis [L85.3] INVALID FOR*05/21/2016 Calculus of ureter [N20.1] INVALID FOR* Pyoderma [L08.0] INVALID FOR*05/21/2016 Pruritus [L29.9] INVALID FOR*05/21/2016 Monilial vulvovaginitis [B37.3] INVALID FOR* Migraine without aura, with intractable migrain*INVALID FOR* Microhematuria [R31.29] INVALID FOR* Flank pain [R10.9] INVALID FOR* Female stress incontinence [N39.3] INVALID FOR* Menstrual irregularity [N92.6] INVALID FOR* Palpitations [R00.2] INVALID FOR* Backache, unspecified [M54.9] INVALID FOR*10/06/2017 Anorectal polyp [K62.0, K62.1] INVALID FOR* Low back pain [M54.5] INVALID FOR*10/06/2017 Buttock pain [M79.1] INVALID FOR*10/06/2017 Lumbosacral neuritis [M54.17] INVALID FOR* Gross hematuria [R31.0] INVALID FOR* History of kidney stones [Z87.442] INVALID FOR* Straining on urination [R39.16] INVALID FOR* Hesitancy [R39.11] INVALID FOR* Difficulty voiding [R39.198] INVALID FOR* Chronic pelvic pain in female [R10.2, G89.29] INVALID FOR* Endometriosis [N80.9] INVALID FOR* Obesity, Class I, BMI 30-34.9 [E66.9] INVALID FOR* Encounter Status:Closed by Juan Luis DON on 11/09/17 PROGRESS Observed: 11/04/2017 Status: COMPLETED Source: [place] 3:18 PM [facility] REPOSITORY HNO ID: [id number] Author: Hellen Lopez) Rhina Service: (none) Author Type: Physician Frame Hand Type: Progress Notes Filed: 11/04/2017 3:26 PM Note Text: Subjective HPI Pt presents with left hand pain since this am. She had fallen and bent her second digit back. Since then it has been painful and swollen. No otc meds taken. No problems with hand in the past. Review of Systems Musculoskeletal: Left hand pain All other systems reviewed and are negative. PAST MEDICAL HISTORY Diagnosis Date - Abnormal glandular Papanicolaou smear of cervix Abn. Pap smear (cervix) - Abnormal maternal glucose tolerance, antepartum 2003 diet controlled - Allergic rhinitis, cause unspecified Allergic rhinitis - Anal fissure - Ankylosis spondylitis - Back pain - Calculus of kidney 2007 4 stones, followed by Dr. 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 Disp: 60 tablet Rfl: 11 triamcinolone acetonide (KENALOG) 0.1 % cream Apply 1 application to affected area twice daily. Disp: 454 g Rfl: 0 atenolol (TENORMIN) 25 mg tablet TAKE 1 TABLET BY MOUTH ONCE DAILY. Disp: 30 tablet Rfl: 11 medroxyPROGESTERone (PROVERA, CYCRIN) 10 mg tablet Take 10 mg by mouth once daily. Disp: Rfl: HYDROCORTISONE TOPICAL Apply to affected area. Disp: Rfl: omeprazole (PRILOSEC) 20 mg capsule TAKE 1 CAPSULE BY MOUTH ONCE DAILY. Disp: 30 capsule Rfl: 1 lidocaine (XYLOCAINE) 2 % jelly Apply 1 application to affected area as directed. Disp: 1 Tube Rfl: 1 diazePAM (VALIUM) 5 mg tablet Take 1 tablet by mouth once daily as needed. Disp: 30 tablet Rfl: 5 dexamethasone (DECADRON) 1 mg tablet Take 1 mg by mouth once daily as needed. Disp: Rfl: 0 magnesium hydroxide (MILK OF MAGNESIA) 400 mg/5 mL suspension Take 5 mL by mouth once daily as needed. Disp: 30 mL Rfl: 0 Simethicone (GAS FREE EXTRA STRENGTH) 125 mg cap Take 1 tablet by mouth three times daily as needed. Disp: 30 capsule Rfl: 0 hydrocortisone (HEMORRHOIDAL HC) 25 mg suppository 1 Suppository by RECTAL route twice daily as needed. Insert one (1) in the rectum each night before bed. Disp: 60 Suppository Rfl: 4 Tranexamic Acid 650 mg tab Take 2 tablets by mouth three times daily as needed (until bleeding slows or stops for up to 5 days). Disp: 30 tablet Rfl: 0 ondansetron (ZOFRAN, HYDROCHLORIDE,) 4 mg tablet Take 4 mg by mouth every 8 hours as needed. Disp: Rfl: COMPOUNDED PRESCRIPTION Apply to affected area. Nifedipine 0.3% apply to anal area twice daily. Disp: 30 g Rfl: 5 albuterol 90 mcg/actuation Aero Inhale 2 Puffs as instructed every 4 hours as needed (shortness of breath). Disp: 1 Inhaler Rfl: 0 cetirizine 10 mg tablet Take 1 tablet by mouth once daily. Disp: 30 tablet Rfl: 3 MULTI-VITAMIN ORAL Take by mouth once daily. 2 tablets daily Disp: Rfl: diclofenac potassium (CATAFLAM) 50 mg tablet Take 50 mg by mouth three times daily. Disp: Rfl: docusate sodium (COLACE) 100 mg capsule Take 100 mg by mouth twice daily as needed. Disp: Rfl: No current facility-administered medications for this visit. PAST SURGICAL HISTORY Procedure Laterality Date - CERVIX UTERI CONIZA LP ELCTRO EXCI 2001 LEEP-Cervix - DELIVERY ONLY 2003 , low cervical - COLONOSCOP W/ OR W/O [facility] SPEC 1986 Colonoscopy - COLONOSCOP W/ OR W/O [facility] [facility] SPEC 06/20/2014 Colonoscopy - ESWL X1 - F SALPINGO-OOPHORECTOMY 08/21/14 LEFT only - PAST SURGICAL HISTORY OF WISDOM TEETH - PAST SURGICAL HISTORY OF < 1 yr old bilat inguinal hernia repair - SIGMOIDOSCOPY FLEX DIAG Sigmoidoscopy, flexible FAMILY HISTORY Problem Relation Age of Onset - Prostate Cancer Maternal Grandfather - Cancer Maternal Grandfather leukemia - parkinsons [OTHER] Maternal Grandfather - Coronary Artery Disease Paternal Grandfather 48 suddenly - Diabetes Paternal Grandmother - Lipids Mother - Osteoporosis Mother - Lipids Father - Hypertension Father - kidney stones [OTHER] Father - CHF [OTHER] Father - spastic 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 [OTHER] Son - Breast Cancer Maternal Grandmother age 90 - down syndrome [OTHER] Paternal Uncle Social History Substance Use Topics - Smoking status: Never Smoker - Smokeless tobacco: Never Used - Alcohol use No Comment: Seldom BP 122/80 Pulse 68 Temp 37.3 ?C (99.1 ?F) (Tympanic) Resp 16 Wt 81 kg (178 lb 9.6 oz) BMI 32.67 kg/m? Objective Physical Exam Constitutional: She is oriented to person, place, and time and well-developed, well-nourished, and in no distress. HENT: Head: Normocephalic and atraumatic. Neck: Normal range of motion. Cardiovascular: Normal rate, regular rhythm and normal heart sounds. Pulmonary/Chest: Effort normal and breath sounds normal. Musculoskeletal: Left hand exam reveals tenderness on palpation of the MCP of the second digit. Mild swelling. No bruising. Pain on flexion and extension. Able to make a fist. Normal distal sensation. No other tenderness of the hand. Neurological: She is alert and oriented to person, place, and time. Skin: Skin is warm and dry. No rash noted. Psychiatric: Affect and judgment normal. Nursing note and vitals reviewed. ASSESSMENT/PLAN: 1. Hand injury, left, initial encounter - ICD9: 959.4, ICD10: S69.92XA Pt xrays here are negative for fracture. I feel she has a strain. Discussed ice, rest, ibuprofen. If no lyssa tano one week follow up with pcp. - XR HAND GENERAL 3V PA/LAT/OBL LT - XR HAND GENERAL 3V PA/LAT/OBL LT Hellen Rievra PA-C XR HAND 3V PA/LAT/OBL Observed: 11/04/2017 Status: F Source: [facility] 3:01 PM [facility] REPOSITORY * * *Final Report* * * DATE OF EXAM: Nov 04 2017 3:01PM WOX [id number] - XR HAND 3V PA/LAT/OBL LT / PROCEDURE REASON: Unspecified injury of left wrist, hand and finger(s), initial encounter * * * * Physician Interpretation * * * * Left hand HISTORY: 32 years old Clinical information: Unspecified injury of left wrist, hand and finger(s), initial encounter fell left 2nd MIPof finger, bent backwards TECHNIQUE: Images: XR HAND 3V PA/LAT/OBL LT Comparison: None. RESULT: Findings: No fracture or dislocation is evident. IMPRESSION: No acute finding. Profiler Hand: PSCB Transcribe Date/Time: Nov 04 2017 3:09P Dictated by : RUDY ALARCON MD This examination was interpreted and the report reviewed and electronically signed by: RUDY ALARCON MD on Nov 04 2017 3:10PM EST [id number] PROGRESS Observed: 11/04/2017 Status: COMPLETED Source: [place] 2:52 PM [facility] REPOSITORY HNO ID: [id number] Author: Tonja Carballo Service: (none) Author Type: (none) Type: Progress Notes Filed: 11/04/2017 3:01 PM Note Text: Radiology Service Progress Note PATIENT NAME: Kaya Arce DATE OF SERVICE: November 04, 2017 TIME: 2:52 PM PATIENT IDENTITY VERIFICATION COMPLETED USING TWO (2) METHODS: Patient confirmed name verbally and Date of . PATIENT GENDER DATA: Female. status: : No status: NO. PATIENT RELEVANT IMPLANT DATA REVIEWED: Not Applicable RADIOLOGY DEPARTMENT: General X-ray: Exam(s) Completed: Upper Extremity X-Ray(s): Hand, left : PERIPHERAL IV DATA: Not applicable SIGNED BY: Tonja Sevilla Rt November 04, 2017 2:52 PM CNOV Observed: 11/04/2017 Status: COMPLETED Source: [place] 2:30 PM [facility] REPOSITORY Office Visit (WSTR) KAYA ARCE ([id number]) 1985 F Date Time Provider Department 11/04/17 2:30 PM HELLEN RIVERA (HARVINDER) WSTR During your visit today, we recorded the following information about you: Temperature Pulse Respiration Blood pressure 99.1 degrees 68/minute 16/minute 122/80 Weight 81 kg Hellen Rivera PA-C 11/04/2017 3:26 PM Signed Subjective HPI Pt presents with left hand pain since this am. She had fallen and bent her second digit back. Since then it has been painful and swollen. No otc meds taken. No problems with hand in the past. Review of Systems Musculoskeletal: Left hand pain All other systems reviewed and are negative. PAST MEDICAL HISTORY Diagnosis Date - Abnormal glandular Papanicolaou smear of cervix Abn. Pap smear (cervix) - Abnormal maternal glucose tolerance, antepartum 2003 diet controlled - Allergic rhinitis, cause unspecified Allergic rhinitis - Anal fissure - Ankylosis spondylitis - Back pain - Calculus of kidney 2007 4 stones, followed by Dr. 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 Disp: 60 tablet Rfl: 11 triamcinolone acetonide (KENALOG) 0.1 % cream Apply 1 application to affected area twice daily. Disp: 454 g Rfl: 0 atenolol (TENORMIN) 25 mg tablet TAKE 1 TABLET BY MOUTH ONCE DAILY. Disp: 30 tablet Rfl: 11 medroxyPROGESTERone (PROVERA, CYCRIN) 10 mg tablet Take 10 mg by mouth once daily. Disp: Rfl: HYDROCORTISONE TOPICAL Apply to affected area. Disp: Rfl: omeprazole (PRILOSEC) 20 mg capsule TAKE 1 CAPSULE BY MOUTH ONCE DAILY. Disp: 30 capsule Rfl: 1 lidocaine (XYLOCAINE) 2 % jelly Apply 1 application to affected area as directed. Disp: 1 Tube Rfl: 1 diazePAM (VALIUM) 5 mg tablet Take 1 tablet by mouth once daily as needed. Disp: 30 tablet Rfl: 5 dexamethasone (DECADRON) 1 mg tablet Take 1 mg by mouth once daily as needed. Disp: Rfl: 0 magnesium hydroxide (MILK OF MAGNESIA) 400 mg/5 mL suspension Take 5 mL by mouth once daily as needed. Disp: 30 mL Rfl: 0 Simethicone (GAS FREE EXTRA STRENGTH) 125 mg cap Take 1 tablet by mouth three times daily as needed. Disp: 30 capsule Rfl: 0 hydrocortisone (HEMORRHOIDAL HC) 25 mg suppository 1 Suppository by RECTAL route twice daily as needed. Insert one (1) in the rectum each night before bed. Disp: 60 Suppository Rfl: 4 Tranexamic Acid 650 mg tab Take 2 tablets by mouth three times daily as needed (until bleeding slows or stops for up to 5 days). Disp: 30 tablet Rfl: 0 ondansetron (ZOFRAN, HYDROCHLORIDE,) 4 mg tablet Take 4 mg by mouth every 8 hours as needed. Disp: Rfl: COMPOUNDED PRESCRIPTION Apply to affected area. Nifedipine 0.3% apply to anal area twice daily. Disp: 30 g Rfl: 5 albuterol 90 mcg/actuation Aero Inhale 2 Puffs as instructed every 4 hours as needed (shortness of breath). Disp: 1 Inhaler Rfl: 0 cetirizine 10 mg tablet Take 1 tablet by mouth once daily. Disp: 30 tablet Rfl: 3 MULTI-VITAMIN ORAL Take by mouth once daily. 2 tablets daily Disp: Rfl: diclofenac potassium (CATAFLAM) 50 mg tablet Take 50 mg by mouth three times daily. Disp: Rfl: docusate sodium (COLACE) 100 mg capsule Take 100 mg by mouth twice daily as needed. Disp: Rfl: No current facility-administered medications for this visit. PAST SURGICAL HISTORY Procedure Laterality Date - CERVIX UTERI CONIZA LP ELCTRO EXCI 2001 LEEP-Cervix - DELIVERY ONLY 2003 , low cervical - COLONOSCOP W/ OR W/O [facility] SPEC 1986 Colonoscopy - COLONOSCOP W/ OR W/O [facility] SPEC 06/20/2014 Colonoscopy - ESWL X1 - F SALPINGO-OOPHORECTOMY 08/21/14 LEFT only - PAST SURGICAL HISTORY OF WISDOM TEETH - PAST SURGICAL HISTORY OF < 1 yr old bilat inguinal hernia repair - SIGMOIDOSCOPY FLEX DIAG Sigmoidoscopy, flexible FAMILY HISTORY Problem Relation Age of Onset - Prostate Cancer Maternal Grandfather - Cancer Maternal Grandfather leukemia - parkinsons [OTHER] Maternal Grandfather - Coronary Artery Disease Paternal Grandfather 48 suddenly - Diabetes Paternal Grandmother - Lipids Mother - Osteoporosis Mother - Lipids Father - Hypertension Father - kidney stones [OTHER] Father - CHF [OTHER] Father - spastic 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 [OTHER] Son - Breast Cancer Maternal Grandmother age 90 - down syndrome [OTHER] Paternal Uncle Social History Substance Use Topics - Smoking status: Never Smoker - Smokeless tobacco: Never Used - Alcohol use No Comment: Seldom BP 122/80 Pulse 68 Temp 37.3 ?C (99.1 ?F) (Tympanic) Resp 16 Wt 81 kg (178 lb 9.6 oz) BMI 32.67 kg/m? Objective Physical Exam Constitutional: She is oriented to person, place, and time and well-developed, well-nourished, and in no distress. HENT: Head: Normocephalic and atraumatic. Neck: Normal range of motion. Cardiovascular: Normal rate, regular rhythm and normal heart sounds. Pulmonary/Chest: Effort normal and breath sounds normal. Musculoskeletal: Left hand exam reveals tenderness on palpation of the MCP of the second digit. Mild swelling. No bruising. Pain on flexion and extension. Able to make a fist. Normal distal sensation. No other tenderness of the hand. Neurological: She is alert and oriented to person, place, and time. Skin: Skin is warm and dry. No rash noted. Psychiatric: Affect and judgment normal. Nursing note and vitals reviewed. ASSESSMENT/PLAN: 1. Hand injury, left, initial encounter - ICD9: 959.4, ICD10: S69.92XA Pt xrays here are negative for fracture. I feel she has a strain. Discussed ice, rest, ibuprofen. If no lyssa tano one week follow up with pcp. - XR HAND GENERAL 3V PA/LAT/OBL LT - XR HAND GENERAL 3V PA/LAT/OBL LT Hellen Rivera PA-C Referring Provider: SELF [[id number]] Allergies As of Date: 11/04/2017 Noted Allergy Reaction BEES 06/18/2010 4 - Hives 7 - Swelling DOXYCYCLINE 09/26/2008 8 - GI Upset Comments: Not able to tolerate due to GI effects EUCALYPTUS 06/07/2007 Comments: tachycardia close airway FLEXERIL (CYCLOBENZAPRINE) 04/28/2012 1 - Mental Status Change Comments: Made patient feel worse than before KEFLEX (CEPHALEXIN) 05/09/2002 4 - Hives 10 - Anaphylaxis LATEX 08/15/2008 7 - Swelling MINOCYCLINE 03/07/2008 8 - GI Upset nitroglycerin suppositories [Othe*01/31/2008 NSAIDS (NON-STEROIDAL ANTI-INFLAM*2015 5 - Intolerance TIZANIDINE 12/04/2010 1 - Mental Status Change Comments: Low HR, cold and clammy (subjective only) VICODIN (HYDROCODONE-ACETAMINOPHE*03/31/2010 9 - Itching Date Reviewed: 11/04/2017 Reviewed by: Yolanda Almonte LPN - Fully Assessed Reason for Visit: left hand pain [Other] Cmt: fell this am Primary Visit Diagnosis:Hand injury, left, initial encounter [S69.92XA] Order(s):XR HAND GENERAL 3V PA/LAT/OBL LT [[id number]] Order #: [id number] FUTURE Prescriptions as of 11/04/2017 Sig: POTASSIUM CHLORIDE ER 10 MEQ * Take 2 tablets by mouth once * TRIAMCINOLONE ACETONIDE 0.1 %* Apply 1 application to affect* ATENOLOL 25 MG TABLET TAKE 1 TABLET BY MOUTH ONCE D* MEDROXYPROGESTERONE 10 MG TAB* Take 10 mg by mouth once sienna* HYDROCORTISONE TOPICAL Apply to affected area. OMEPRAZOLE 20 MG CAPSULE,JACQUE* TAKE 1 CAPSULE BY MOUTH ONCE * LIDOCAINE 2 % MUCOSAL JELLY Apply 1 application to affect* DIAZEPAM 5 MG TABLET Take 1 tablet by mouth once d* DEXAMETHASONE 1 MG TABLET Take 1 mg by mouth once daily* MAGNESIUM HYDROXIDE 400 MG/5 * Take 5 mL by mouth once daily* SIMETHICONE 125 MG CAPSULE Take 1 tablet by mouth three * HYDROCORTISONE ACETATE 25 MG * 1 Suppository by RECTAL route* TRANEXAMIC ACID 650 MG TABLET Take 2 tablets by mouth three* ONDANSETRON HCL 4 MG TABLET Take 4 mg by mouth every 8 ho* COMPOUNDED PRESCRIPTION Apply to affected area. Nife* ALBUTEROL 90 MCG/ACTUATION AE* Inhale 2 Puffs as instructed * * CETIRIZINE 10 MG TABLET Take 1 tablet by mouth once d* * MULTI-VITAMIN ORAL Take by mouth once daily. 2 * DICLOFENAC POTASSIUM 50 MG TA* Take 50 mg by mouth three florentin* DOCUSATE SODIUM 100 MG CAPSULE Take 100 mg by mouth twice da* Problem List As Of Date 11/04/2017 Noted Resolved PAIN IN JOINT, LOWER LEG [M25.569] INVALID FOR*01/24/2008 ASTHMA UNSPECIFIED [J45.909] INVALID FOR* Priority: Mild CHRONIC RHINITIS [J31.0] INVALID FOR* DYSMETABOLIC SYNDROME X [E88.81] INVALID FOR* Priority: Moderate More... IBS (IRRITABLE BOWEL SYNDROME) [K58.9] INVALID FOR* ANAL FISSURE [K60.2] BENIGN NEOPLASM LG BOWEL [D12.6] RECTAL AND ANAL HEMORRHAGE [K62.5] 08/01/2008 ESOPHAGEAL REFLUX [K21.9] DEVIATED NASAL SEPTUM [J34.2] INVALID FOR* POLYCYSTIC OVARIES [E28.2] INVALID FOR* Urinary calculus, unspecified [N20.9] INVALID FOR*10/06/2017 Priority: Mild More... IMPAIRED FASTING GLUCOSE [R73.01] INVALID FOR* Priority: Mild ABN GLUCOSE-ANTEPARTUM [O99.810] 08/01/2008 More... THROMBOS HEMORRHOIDS NOS [K64.5] INVALID FOR* Priority: Mild More... Routine general medical examination at a health*INVALID FOR*11/21/2011 Priority: Mild Class: Chronic More... ROUTINE MELT HELPER EXAMINATION [Z01.419] INVALID FOR*08/15/2008 Class: Chronic More... HX OF CERVICAL DYSPLASIA [Z87.410] INVALID FOR* More... ANXIETY STATE NOS [F41.1] INVALID FOR* Priority: Moderate More... PREV DELIVERY NOS-ANTEPART [O34.219] INVALID FOR* POOR GRTH-ANTEPART [O36.5990] INVALID FOR*09/26/2008 Routine gynecological examination [Z01.419] INVALID FOR*11/21/2011 Class: Chronic More... HIDRADENITIS [L73.2] INVALID FOR* Priority: Moderate More... 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 Pyoderma, unspecified [L08.0] INVALID FOR*05/21/2016 Pain in joint, lower leg [M25.569] INVALID FOR* Headache [R51] INVALID FOR* Lumbago [M54.5] INVALID FOR* Spasm of muscle [M62.838] INVALID FOR*10/06/2017 Adrenal insufficiency [E27.40] Muscle spasm [M62.838] INVALID FOR* Calculus of kidney [N20.0] INVALID FOR* Lyme disease [A69.20] INVALID FOR* Seborrheic Dermatitis [L21.8] INVALID FOR* Xerosis cutis [L85.3] INVALID FOR*05/21/2016 Calculus of ureter [N20.1] INVALID FOR* Pyoderma [L08.0] INVALID FOR*05/21/2016 Pruritus [L29.9] INVALID FOR*05/21/2016 Monilial vulvovaginitis [B37.3] INVALID FOR* Migraine without aura, with intractable migrain*INVALID FOR* Microhematuria [R31.29] INVALID FOR* Flank pain [R10.9] INVALID FOR* Female stress incontinence [N39.3] INVALID FOR* Menstrual irregularity [N92.6] INVALID FOR* Palpitations [R00.2] INVALID FOR* Backache, unspecified [M54.9] INVALID FOR*10/06/2017 Anorectal polyp [K62.0, K62.1] INVALID FOR* Low back pain [M54.5] INVALID FOR*10/06/2017 Buttock pain [M79.1] INVALID FOR*10/06/2017 Lumbosacral neuritis [M54.17] INVALID FOR* Gross hematuria [R31.0] INVALID FOR* History of kidney stones [Z87.442] INVALID FOR* Straining on urination [R39.16] INVALID FOR* Hesitancy [R39.11] INVALID FOR* Difficulty voiding [R39.198] INVALID FOR* Chronic pelvic pain in female [R10.2, G89.29] INVALID FOR* Endometriosis [N80.9] INVALID FOR* Obesity, Class I, BMI 30-34.9 [E66.9] INVALID FOR* Encounter Status:Closed by HELLEN RIVERA PA-C on 11/04/17 PROGRESS Observed: 10/19/2017 Status: COMPLETED Source: [place] 2:35 PM [facility] REPOSITORY O ID: [id number] Author: Sterling Stern Service: (none) Author Type: Physician Type: Progress Notes Filed: 10/19/2017 8:13 PM Note Text: PERTINENT CARDIAC HISTORY Palpitations Syncope - vasovagal Ankylosing spondylitis - with Crohn's ADHERENCE TO GUIDELINES MEE-I or ARB for HF with prior LVEF<40 (NQF 0081) - N/A ASA or Plavix for ASHD (NQF 0067) - N/A Beta edson for ASHD with prior [place] or prior LVEF<40 (NQF 0070) - N/A Beta edson for HF with prior LVEF<40 (NQF 0083) - N/A MEE-I or ARB for ASHD with DM or prior LVEF<40 (NQF 0066) - N/A Statin therapy for ASHD or FHL or DM - N/A BMI documented and plan if >25 (NQF 0421) - lifestyle recommendation form Tobacco use screening and referral (NQ 0028) - lifestyle recommendation form Recommendation for whole food, plant based diet - lifestyle recommendation form CLINICAL IMPRESSION/PLAN: Kaya Arce has had an exacerbation of her palpitations which have been incompletely characterized in the past. I recommended that she have a 30 day event monitor, to be started when she is most symptomatic. Order has been placed she has been advised to call when she wishes to begin. We will also proceed with a non-imaging stress test. Resting ECG is normal. If there is significant abnormality, she will be referred for an imaging test. I've encouraged her to continue her current small dose of atenolol. If everything turns out okay, we will consider switching her to labetalol. She has not been able to tolerate a higher dose of atenolol because of bradycardia. I will see her as previously scheduled, or as needed.. Written and verbal health teaching given to patient, patient verbalizes understanding and agrees with treatment plan. DIAGNOSIS FOR VISIT: Palpitations HISTORY OF PRESENT ILLNESS Kaya Arce returns for follow-up of her palpitations and vasovagal syncope. She was recently seen in the emergency department because of frequent palpitations. These have been bothering her more when she lies on her side. She is also having intermittent sharp chest pain, which has been predominantly pinpoint and in the anterior chest wall. She's been under a lot of stress recently. She reports that her symptoms are exacerbated during the week before her period begins She went to the [place] emergency room where she reports that her workup was unremarkable. Those records have been requested. She has had no exertional chest tightness. However, her exercise tolerance has been decreased slightly. She has had no edema, syncope, TIAs, amaurosis or claudication. ALLERGIES: ALLERGIES Allergen Reactions - Bees Hives, Swelling - Doxycycline GI Upset Not able to tolerate due to GI effects - Eucalyptus tachycardia close airway - Flexeril [Cyclobenz* Mental Status Change Made patient feel worse than before - Keflex [Cephalexin] Hives, Anaphylaxis - Latex Swelling - Minocycline GI Upset - Nitroglycerin Suppo* - Nsaids (Non-Steroid* Intolerance - Tizanidine Mental Status Change Low HR, cold and clammy (subjective only) - Vicodin [Hydrocodon* Itching CURRENT OUTPATIENT MEDICATIONS: potassium chloride (KLOR-CON 10) 10 mEq tablet Take 2 tablets by mouth once daily. triamcinolone acetonide (KENALOG) 0.1 % cream Apply 1 application to affected area twice daily. atenolol (TENORMIN) 25 mg tablet TAKE 1 TABLET BY MOUTH ONCE DAILY. medroxyPROGESTERone (PROVERA, CYCRIN) 10 mg tablet Take 10 mg by mouth once daily. omeprazole (PRILOSEC) 20 mg capsule TAKE 1 CAPSULE BY MOUTH ONCE DAILY. lidocaine (XYLOCAINE) 2 % jelly Apply 1 application to affected area as directed. cetirizine 10 mg tablet Take 1 tablet by mouth once daily. MULTI-VITAMIN ORAL Take by mouth once daily. 2 tablets daily diclofenac potassium (CATAFLAM) 50 mg tablet Take 50 mg by mouth three times daily. HYDROCORTISONE TOPICAL Apply to affected area. diazePAM (VALIUM) 5 mg tablet Take 1 tablet by mouth once daily as needed. dexamethasone (DECADRON) 1 mg tablet Take 1 mg by mouth once daily as needed. magnesium hydroxide (MILK OF MAGNESIA) 400 mg/5 mL suspension Take 5 mL by mouth once daily as needed. docusate sodium (COLACE) 100 mg capsule Take 100 mg by mouth twice daily as needed. Simethicone (GAS FREE EXTRA STRENGTH) 125 mg cap Take 1 tablet by mouth three times daily as needed. hydrocortisone (HEMORRHOIDAL HC) 25 mg suppository 1 Suppository by RECTAL route twice daily as needed. Insert one (1) in the rectum each night before bed. Tranexamic Acid 650 mg tab Take 2 tablets by mouth three times daily as needed (until bleeding slows or stops for up to 5 days). ondansetron (ZOFRAN, HYDROCHLORIDE,) 4 mg tablet Take 4 mg by mouth every 8 hours as needed. COMPOUNDED PRESCRIPTION Apply to affected area. Nifedipine 0.3% apply to anal area twice daily. albuterol 90 mcg/actuation Aero Inhale 2 Puffs as instructed every 4 hours as needed (shortness of breath). PHYSICAL EXAMINATION: VITAL SIGNS: BP 125/76 Pulse 83 Wt 181 lb 3.2 oz (82.2kg) LMP 09/15/2017 Chest: Clear to percussion and auscultation. Trachea is midline. Air entry is equal. Cardiac: Regular rhythm. S1 and S2 are normal. PMI is nondisplaced. There is a soft systolic ejection. Carotids are brisk without bruits. JVP is less than 10 cm. Abdomen: Soft and nontender. There are no pulsatile masses or bruits. No liver enlargement. Bowel sounds are active. Extremities: No edema. Pulses are intact and symmetrical. Labs were reviewed. Potassium level was slightly low, however by report was normal in the emergency department Electronically Signed: Sterling Stern MD October 19, 2017 2:35 PM CC: Chance Avina MD CNOV Observed: 10/19/2017 Status: COMPLETED Source: [place] 1:45 PM [facility] REPOSITORY Office Visit (CAWSTR) KAYA ARCE ([id number]) 1985 F Date Time Provider Department 10/19/17 1:45 PM [facility] CAW[facility] During your visit today, we recorded the following information about you: Pulse Blood pressure Weight Last Period 83/minute 125/76 82.2 kg 09/15/17 Sterling Stern MD 10/19/2017 8:13 PM Signed PERTINENT CARDIAC HISTORY Palpitations Syncope - vasovagal Ankylosing spondylitis - with Crohn's ADHERENCE TO GUIDELINES MEE-I or ARB for HF with prior LVEF<40 (NQF 0081) - N/A ASA or Plavix for ASHD (NQF 0067) - N/A Beta edson for ASHD with prior VA or prior LVEF<40 (NQF 0070) - N/A Beta edson for HF with prior LVEF<40 (NQF 0083) - N/A MEE-I or ARB for ASHD with DM or prior LVEF<40 (NQF 0066) - N/A Statin therapy for ASHD or FHL or DM - N/A BMI documented and plan if >25 (NQF 0421) - lifestyle recommendation form Tobacco use screening and referral (NQ 0028) - lifestyle recommendation form Recommendation for whole food, plant based diet - lifestyle recommendation form CLINICAL IMPRESSION/PLAN: Kaya Arce has had an exacerbation of her palpitations which have been incompletely characterized in the past. I recommended that she have a 30 day event monitor, to be started when she is most symptomatic. Order has been placed she has been advised to call when she wishes to begin. We will also proceed with a non-imaging stress test. Resting ECG is normal. If there is significant abnormality, she will be referred for an imaging test. I've encouraged her to continue her current small dose of atenolol. If everything turns out okay, we will consider switching her to labetalol. She has not been able to tolerate a higher dose of atenolol because of bradycardia. I will see her as previously scheduled, or as needed.. Written and verbal health teaching given to patient, patient verbalizes understanding and agrees with treatment plan. DIAGNOSIS FOR VISIT: Palpitations HISTORY OF PRESENT ILLNESS Kaya Arce returns for follow-up of her palpitations and vasovagal syncope. She was recently seen in the emergency department because of frequent palpitations. These have been bothering her more when she lies on her side. She is also having intermittent sharp chest pain, which has been predominantly pinpoint and in the anterior chest wall. She's been under a lot of stress recently. She reports that her symptoms are exacerbated during the week before her period begins She went to the [place] emergency room where she reports that her workup was unremarkable. Those records have been requested. She has had no exertional chest tightness. However, her exercise tolerance has been decreased slightly. She has had no edema, syncope, TIAs, amaurosis or claudication. ALLERGIES: ALLERGIES Allergen Reactions - Bees Hives, Swelling - Doxycycline GI Upset Not able to tolerate due to GI effects - Eucalyptus tachycardia close airway - Flexeril [Cyclobenz* Mental Status Change Made patient feel worse than before - Keflex [Cephalexin] Hives, Anaphylaxis - Latex Swelling - Minocycline GI Upset - Nitroglycerin Suppo* - Nsaids (Non-Steroid* Intolerance - Tizanidine Mental Status Change Low HR, cold and clammy (subjective only) - Vicodin [Hydrocodon* Itching CURRENT OUTPATIENT MEDICATIONS: potassium chloride (KLOR-CON 10) 10 mEq tablet Take 2 tablets by mouth once daily. triamcinolone acetonide (KENALOG) 0.1 % cream Apply 1 application to affected area twice daily. atenolol (TENORMIN) 25 mg tablet TAKE 1 TABLET BY MOUTH ONCE DAILY. medroxyPROGESTERone (PROVERA, CYCRIN) 10 mg tablet Take 10 mg by mouth once daily. omeprazole (PRILOSEC) 20 mg capsule TAKE 1 CAPSULE BY MOUTH ONCE DAILY. lidocaine (XYLOCAINE) 2 % jelly Apply 1 application to affected area as directed. cetirizine 10 mg tablet Take 1 tablet by mouth once daily. MULTI-VITAMIN ORAL Take by mouth once daily. 2 tablets daily diclofenac potassium (CATAFLAM) 50 mg tablet Take 50 mg by mouth three times daily. HYDROCORTISONE TOPICAL Apply to affected area. diazePAM (VALIUM) 5 mg tablet Take 1 tablet by mouth once daily as needed. dexamethasone (DECADRON) 1 mg tablet Take 1 mg by mouth once daily as needed. magnesium hydroxide (MILK OF MAGNESIA) 400 mg/5 mL suspension Take 5 mL by mouth once daily as needed. docusate sodium (COLACE) 100 mg capsule Take 100 mg by mouth twice daily as needed. Simethicone (GAS FREE EXTRA STRENGTH) 125 mg cap Take 1 tablet by mouth three times daily as needed. hydrocortisone (HEMORRHOIDAL HC) 25 mg suppository 1 Suppository by RECTAL route twice daily as needed. Insert one (1) in the rectum each night before bed. Tranexamic Acid 650 mg tab Take 2 tablets by mouth three times daily as needed (until bleeding slows or stops for up to 5 days). ondansetron (ZOFRAN, HYDROCHLORIDE,) 4 mg tablet Take 4 mg by mouth every 8 hours as needed. COMPOUNDED PRESCRIPTION Apply to affected area. Nifedipine 0.3% apply to anal area twice daily. albuterol 90 mcg/actuation Aero Inhale 2 Puffs as instructed every 4 hours as needed (shortness of breath). PHYSICAL EXAMINATION: VITAL SIGNS: BP 125/76 Pulse 83 Wt 181 lb 3.2 oz (82.2kg) LMP 09/15/2017 Chest: Clear to percussion and auscultation. Trachea is midline. Air entry is equal. Cardiac: Regular rhythm. S1 and S2 are normal. PMI is nondisplaced. There is a soft systolic ejection. Carotids are brisk without bruits. JVP is less than 10 cm. Abdomen: Soft and nontender. There are no pulsatile masses or bruits. No liver enlargement. Bowel sounds are active. Extremities: No edema. Pulses are intact and symmetrical. Labs were reviewed. Potassium level was slightly low, however by report was normal in the emergency department Electronically Signed: Streling Stern MD October 19, 2017 2:35 PM CC: MD Sterling Rodriges MD 10/19/2017 2:36 PM Signed LIFESTYLE CHANGE A healthy lifestyle is the most important component of your overall treatment plan. Please give serious thought to the following areas and commit to making senior living changes. EAT A WHOLE FOOD, PLANT BASED DIET The nutrition your body gets is more important than the medicine you take. What matters most is the overall way you eat. We encourage you to minimize the use of animal products (which include dairy and all meats except fatty fish) and use whole, unprocessed plant foods to provide your protein, vitamins and other nutrients. We have a lot of information to share with you on this topic. This is not a diet. It is a way of life that you will keep with you. EXERCISE REGULARLY It is not important to spend hours in the gym, lifting weights and perspiring heavily. A total of 2-3 hours per week of aerobic (causing you to be moderately short of breath) exercise is sufficient to improve your health. Talk to us before you begin a new exercise program, if you have heart disease or experience shortness of breath or chest pain. REDUCE STRESS Chronic emotional and physical stress leads to disease. Ways of reducing stress include meditation, visualization, prayer, yoga and other forms of relaxation therapy. Consistency is the cameron. Find a technique that works for you and do it every day. CULTIVATE RELATIONSHIPS Loneliness and isolation have a major negative impact on health. Seek out others who can love, care for and nurture you. Avoid hurtful relationships. MAINTAIN IDEAL BODY WEIGHT The best way to do this is to do all the things above. Our bodies naturally find the right weight if we keep moving and feed ourselves the right food. If your BMI is greater than 25, we strongly recommend a referral to a weight management program. Please speak to us or your family physician about available programs. AVOID NICOTINE IN ALL FORMS This includes all tobacco products, whether chewed, smoked, vaped, or rubbed on the skin. Smoking cessation programs, which can make use of tobacco substitutes, medications to suppress cravings and behavior management, are available. Please contact your family physician about programs in your area. Referring Provider: STERLING STERN [[id number]] Allergies As of Date: 10/19/2017 Noted Allergy Reaction BEES 06/18/2010 4 - Hives 7 - Swelling DOXYCYCLINE 09/26/2008 8 - GI Upset Comments: Not able to tolerate due to GI effects EUCALYPTUS 06/07/2007 Comments: tachycardia close airway FLEXERIL (CYCLOBENZAPRINE) 04/28/2012 1 - Mental Status Change Comments: Made patient feel worse than before KEFLEX (CEPHALEXIN) 05/09/2002 4 - Hives 10 - Anaphylaxis LATEX 08/15/2008 7 - Swelling MINOCYCLINE 03/07/2008 8 - GI Upset nitroglycerin suppositories [Othe*01/31/2008 NSAIDS (NON-STEROIDAL ANTI-INFLAM*2015 5 - Intolerance TIZANIDINE 12/04/2010 1 - Mental Status Change Comments: Low HR, cold and clammy (subjective only) VICODIN (HYDROCODONE-ACETAMINOPHE*03/31/2010 9 - Itching Date Reviewed: 10/19/2017 Reviewed by: Melissa Posada Ma - Fully Assessed Reason for Visit: Established Patient [175] Cmt: ER follow up - palpitations Primary Visit Diagnosis:Palpitation [R00.2] Other Visit Diagnoses:Chest pain, unspecified type [R07.9] Other chest pain [R07.89] Order(s):STRESS REGULAR W/TREAD [[id number]] Order #: [id number]: 1 [employer] EVENT MONITOR [[id number]] Order #: [id number]: 1 Prescriptions as of 10/19/2017 Sig: POTASSIUM CHLORIDE ER 10 MEQ * Take 2 tablets by mouth once * TRIAMCINOLONE ACETONIDE 0.1 %* Apply 1 application to affect* ATENOLOL 25 MG TABLET TAKE 1 TABLET BY MOUTH ONCE D* MEDROXYPROGESTERONE 10 MG TAB* Take 10 mg by mouth once sienna* OMEPRAZOLE 20 MG CAPSULE,JACQUE* TAKE 1 CAPSULE BY MOUTH ONCE * LIDOCAINE 2 % MUCOSAL JELLY Apply 1 application to affect* * CETIRIZINE 10 MG TABLET Take 1 tablet by mouth once d* * MULTI-VITAMIN ORAL Take by mouth once daily. 2 * DICLOFENAC POTASSIUM 50 MG TA* Take 50 mg by mouth three florentin* HYDROCORTISONE TOPICAL Apply to affected area. DIAZEPAM 5 MG TABLET Take 1 tablet by mouth once d* DEXAMETHASONE 1 MG TABLET Take 1 mg by mouth once daily* MAGNESIUM HYDROXIDE 400 MG/5 * Take 5 mL by mouth once daily* DOCUSATE SODIUM 100 MG CAPSULE Take 100 mg by mouth twice da* SIMETHICONE 125 MG CAPSULE Take 1 tablet by mouth three * HYDROCORTISONE ACETATE 25 MG * 1 Suppository by RECTAL route* TRANEXAMIC ACID 650 MG TABLET Take 2 tablets by mouth three* ONDANSETRON HCL 4 MG TABLET Take 4 mg by mouth every 8 ho* COMPOUNDED PRESCRIPTION Apply to affected area. Nife* ALBUTEROL 90 MCG/ACTUATION AE* Inhale 2 Puffs as instructed * Medication notes this encounter DICLOFENAC POTASSIUM 50 MG TABLET >> Melissa Posada Ma 10/19/2017 2:16 PM >> MELISSA POSADA MA Oct 19, 2017 2:16 PM Not taking. DOCUSATE SODIUM 100 MG CAPSULE >> Melissa Posada Ma 10/19/2017 2:17 PM >> MELISSA POSADA MA Oct 19, 2017 2:17 PM As needed. ONDANSETRON HCL 4 MG TABLET >> Melissa Posada Ma 10/19/2017 2:17 PM >> MELISSA POSADA MA Oct 19, 2017 2:17 PM As needed. Problem List As Of Date 10/19/2017 Noted Resolved PAIN IN JOINT, LOWER LEG [M25.569] INVALID FOR*01/24/2008 ASTHMA UNSPECIFIED [J45.909] INVALID FOR* Priority: Mild CHRONIC RHINITIS [J31.0] INVALID FOR* DYSMETABOLIC SYNDROME X [E88.81] INVALID FOR* Priority: Moderate More... IBS (IRRITABLE BOWEL SYNDROME) [K58.9] INVALID FOR* ANAL FISSURE [K60.2] BENIGN NEOPLASM LG BOWEL [D12.6] RECTAL AND ANAL HEMORRHAGE [K62.5] 08/01/2008 ESOPHAGEAL REFLUX [K21.9] DEVIATED NASAL SEPTUM [J34.2] INVALID FOR* POLYCYSTIC OVARIES [E28.2] INVALID FOR* Urinary calculus, unspecified [N20.9] INVALID FOR*10/06/2017 Priority: Mild More... IMPAIRED FASTING GLUCOSE [R73.01] INVALID FOR* Priority: Mild ABN GLUCOSE-ANTEPARTUM [O99.810] 08/01/2008 More... THROMBOS HEMORRHOIDS NOS [K64.5] INVALID FOR* Priority: Mild More... Routine general medical examination at a health*INVALID FOR*11/21/2011 Priority: Mild Class: Chronic More... ROUTINE MELT HELPER EXAMINATION [Z01.419] INVALID FOR*08/15/2008 Class: Chronic More... HX OF CERVICAL DYSPLASIA [Z87.410] INVALID FOR* More... ANXIETY STATE NOS [F41.1] INVALID FOR* Priority: Moderate More... PREV DELIVERY NOS-ANTEPART [O34.219] INVALID FOR* POOR GRTH-ANTEPART [O36.5990] INVALID FOR*09/26/2008 Routine gynecological examination [Z01.419] INVALID FOR*11/21/2011 Class: Chronic More... HIDRADENITIS [L73.2] INVALID FOR* Priority: Moderate More... 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 Pyoderma, unspecified [L08.0] INVALID FOR*05/21/2016 Pain in joint, lower leg [M25.569] INVALID FOR* Headache [R51] INVALID FOR* Lumbago [M54.5] INVALID FOR* Spasm of muscle [M62.838] INVALID FOR*10/06/2017 Adrenal insufficiency [E27.40] Muscle spasm [M62.838] INVALID FOR* Calculus of kidney [N20.0] INVALID FOR* Lyme disease [A69.20] INVALID FOR* Seborrheic Dermatitis [L21.8] INVALID FOR* Xerosis cutis [L85.3] INVALID FOR*05/21/2016 Calculus of ureter [N20.1] INVALID FOR* Pyoderma [L08.0] INVALID FOR*05/21/2016 Pruritus [L29.9] INVALID FOR*05/21/2016 Monilial vulvovaginitis [B37.3] INVALID FOR* Migraine without aura, with intractable migrain*INVALID FOR* Microhematuria [R31.29] INVALID FOR* Flank pain [R10.9] INVALID FOR* Female stress incontinence [N39.3] INVALID FOR* Menstrual irregularity [N92.6] INVALID FOR* Palpitations [R00.2] INVALID FOR* Backache, unspecified [M54.9] INVALID FOR*10/06/2017 Anorectal polyp [K62.0, K62.1] INVALID FOR* Low back pain [M54.5] INVALID FOR*10/06/2017 Buttock pain [M79.1] INVALID FOR*10/06/2017 Lumbosacral neuritis [M54.17] INVALID FOR* Gross hematuria [R31.0] INVALID FOR* History of kidney stones [Z87.442] INVALID FOR* Straining on urination [R39.16] INVALID FOR* Hesitancy [R39.11] INVALID FOR* Difficulty voiding [R39.198] INVALID FOR* Chronic pelvic pain in female [R10.2, G89.29] INVALID FOR* Endometriosis [N80.9] INVALID FOR* Obesity, Class I, BMI 30-34.9 [E66.9] INVALID FOR* Other instructions from your clinician: LIFESTYLE CHANGE A healthy lifestyle is the most important component of your overall treatment plan. Please give serious thought to the following areas and commit to making senior living changes. EAT A WHOLE FOOD, PLANT BASED DIET The nutrition your body gets is more important than the medicine you take. What matters most is the overall way you eat. We encourage you to minimize the use of animal products (which include dairy and all meats except fatty fish) and use whole, unprocessed plant foods to provide your protein, vitamins and other nutrients. We have a lot of information to share with you on this topic. This is not a diet. It is a way of life that you will keep with you. EXERCISE REGULARLY It is not important to spend hours in the gym, lifting weights and perspiring heavily. A total of 2-3 hours per week of aerobic (causing you to be moderately short of breath) exercise is sufficient to improve your health. Talk to us before you begin a new exercise program, if you have heart disease or experience shortness of breath or chest pain. REDUCE STRESS Chronic emotional and physical stress leads to disease. Ways of reducing stress include meditation, visualization, prayer, yoga and other forms of relaxation therapy. Consistency is the cameron. Find a technique that works for you and do it every day. CULTIVATE RELATIONSHIPS Loneliness and isolation have a major negative impact on health. Seek out others who can love, care for and nurture you. Avoid hurtful relationships. MAINTAIN IDEAL BODY WEIGHT The best way to do this is to do all the things above. Our bodies naturally find the right weight if we keep moving and feed ourselves the right food. If your BMI is greater than 25, we strongly recommend a referral to a weight management program. Please speak to us or your family physician about available programs. AVOID NICOTINE IN ALL FORMS This includes all tobacco products, whether chewed, smoked, vaped, or rubbed on the skin. Smoking cessation programs, which can make use of tobacco substitutes, medications to suppress cravings and behavior management, are available. Please contact your family physician about programs in your area. Follow-up and Disposition History Recorded Encounter Status:Closed by STERLING STERN MD on 10/19/17 OFFICE VISIT (URGENT Observed: 10/18/2017 Status: UNK Source: [facility]) 3:30 PM HOSPITALS REPOSITORY History of Present Illness 32-year-old female who describes a 2 to three-week history of a rash involving her chest, upper arms, and neck. It is essentially asymptomatic with no itch. There is minimal tenderness to a few of the l esions. She also has had some recent stomach discomfort with one episode of a loose stool. She also describes intermittent palpitations which were recently evaluated. She recalls a similar rash associat ed with stress 15 years ago. She has been under significant stress recently related to her house. No fever.Review of systems is otherwise negative for constitutional, ear nose and throat, neck, heart, lungs, and abdomen. Review of Systems Constitutional: as noted in HPI. Active Problems Abdominal pain (789.00) (R10.9) Anal fissure (565.0) (K60.2) Anal skin tag (455.9) (K64.4) Ankylosing spondylitis (720.0) (M45.9) Back pain, lumbosacral (724.2,724.6) (M54.5) Bilateral leg weakness (729.89) (R29.898) Calculus of kidney (592.0) (N20.0) Costochondritis (733.6) (M94.0) Crohn's disease (555.9) (K50.90) Cystic acne (706.1) (L70.0) Diarrhea (787.91) (R19.7) Diverticulosis, sigmoid (562.10) (K57.30) Dysuria (788.1) (R30.0) Mass of left thigh (782.2) (R22.42) Mouth ulcers (528.9) (K12.1) Pelvic floor dysfunction (618.83) (M62.89) Polycystic ovary syndrome (256.4) (E28.2) 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) Proteinuria (791.0) (R80.9) Pruritus ani (698.0) (L29.0) Rectal polyp (569.0) (K62.1) Right wrist pain (719.43) (M25.531) Sacroiliitis (720.2) (M46.1) Spondyloarthropathy (721.90) (M46.90) Transaminitis (790.4) (R74.0) Past Medical History History of constipation (V12.79) (Z87.19) History of dysuria (V13.00) (Z87.898) History of endometriosis (V13.29) (Z87.42) History of nausea and vomiting (V12.79) (Z87.898) History of Lyme disease (088.81) (A69.20) Personal history of arthritis (V13.4) (Z87.39) Personal history of asthma (V12.69) (Z87.09) Personal history of cardiac murmur (V12.59) (Z86.79) Surgical History History of Section History of Complete Colonoscopy History of Hernia Repair History of Sigmoidoscopy (Fiberoptic) Family History History of back surgery Family history of cardiac disorder (V17.49) (Z82.49) Family history of diabetes mellitus (V18.0) (Z83.3) Family history of gout (V18.19) (Z82.69) Family history of hypertension (V17.49) (Z82.49) Family history of kidney disease (V18.69) (Z84.1) Family history of malignant neoplasm of breast (V16.3) (Z80.3) Family history of leukemia (V16.6) (Z80.6) Family history of myocardial infarction (V17.3) (Z82.49) Family history of Down syndrome (V19.5) (Z82.79) Social History Never a smoker Occasional alcohol use Allergies Keflex Hives;; Recorded By: Shane Gold; 09/19/2013 1:13:45 PM Doxycycline Hyclate TABS Diarrhea; Recorded By: Shane Gold; 09/19/2013 1:13:45 PM Latex Recorded By: Shane Gold; 09/19/2013 1:13:45 PM Denied Bactrim Hives;; Updated By: Ora Jin; 06/09/2016 4:36:05 PM Codeine Derivatives Updated By: Carrie Robert; 08/27/2016 10:37:25 AM Current Meds Humira Pen 40 MG/0.8ML Subcutaneous Pen-injector Kit; Inject 0.8ml subcutaneously once every two weeks; Therapy: 17Sep2017 to (Evaluate:07Jan2018) Requested for: 17Sep2017; Last Rx:17Sep2017 Ordered Rx By: Ora Jin; Dispense: 28 Days ; #:1 X 1 Pen- injector Kit Box (2 Boxs); Refill: 3;For: Ankylosing spondylitis; RUBIO = N; Verified Transmission to [facility]; Last Updated By: Jimena Bello; 09/17/2017 4:53:45 PM Atenolol 25 MG Oral Tablet; Take 1 tablet daily; Therapy: [id number] to (Evaluate:64Cck6230) Recorded Dispense: 0 Days ; #: Sufficient Tablet; Refill: 0; RUBIO = N; Record; Last Updated By: Miracle Bailey; 06/10/2017 10:47:21 AM [facility] Milk of Magnesia 400 MG/5ML Oral Suspension; TAKE 5 ML BY MOUTH ONCE DAILY NEEDED; Therapy: [id number] to Recorded Rx By: SAGE; Dispense: 30 Days ; #:355 SUSP; Refill: 0; RUBIO = N; Record; Last Updated By: Miracle Bailey; 06/10/2017 10:47:22 AM Gas-X Extra Strength 125 MG Oral Capsule; Therapy: 11Jan2015 to Recorded Dispense: 10 Days ; #:30 CAPS; Refill: 0; RUBIO = N; Record; Last Updated By: Miracle Bailey; 06/10/2017 10:47:21 AM Ketoconazole 2 % External Cream; Therapy: (Recorded:69Uou5499) to Recorded Dispense: 0 Days ; #: Sufficient CREA; Refill: 0; RUBIO = N; Record; Last Updated By: Ora Jin; 07/06/2017 2:38:49 PM Klor-Con 10 10 MEQ Oral Tablet Extended Release; Take 1 tablet daily; Therapy: (Recorded:10Jun2017) to Recorded Dispense: 0 Days ; #: Sufficient Tablet Extended Release; Refill: 0; RUBIO = N; Record; Last Updated By: Miracle Bailey; 06/10/2017 10:47:22 AM MedroxyPROGESTERone Acetate 10 MG Oral Tablet; Therapy: [id number] to Recorded Dispense: 12 Days ; #:12 TABS; Refill: 0; RUBIO = N; Record; Last Updated By: Ora Jin; 08/18/2017 11:26:12 AM Multi-Vitamin Gummies Oral Tablet Chewable; CHEW AND SWALLOW 1 TABLET DAILY; Therapy: (Recorded:10Jun2017) to Recorded Dispense: 0 Days ; #: Sufficient Tablet Chewable; Refill: 0; RUBIO = N; Record; Last Updated By: Miracle Bailey; 06/10/2017 10:47:21 AM NIFEdipine Powder; Therapy: [id number] to Recorded Dispense: 15 Days ; #:30 POWD; Refill: 0; RUBIO = N; Record; Last Updated By: Miracle Bailey; 06/10/2017 10:47:21 AM Omeprazole 20 MG Oral Capsule Delayed Release; TAKE 1 CAPSULE Daily; Therapy: (Recorded:10Jun2017) to Recorded Dispense: 0 Days ; #: Sufficient Capsule Delayed Release; Refill: 0; RUBIO = N; Record; Last Updated By: Miracle Bailey; 06/10/2017 10:47:21 AM ProAir HFA 108 (90 Base) MCG/ACT Inhalation Aerosol Solution; INHALE 2 PUFFS EVERY 4-6 HOURS NEEDED; Therapy: 22Jun2013 to Recorded Dispense: 0 Days ; #: Sufficient GM; Refill: 0; RUBIO = N; Record; Last Updated By: Miracle Bailey; 06/10/2017 10:47:20 AM Salicylic Acid 6 % External Gel; Therapy: 22May2016 to Recorded Dispense: 30 Days ; #:40 GEL; Refill: 0; RUBIO = N; Record; Last Updated By: Miracle Bailey; 06/10/2017 10:47:22 AM Tretinoin 0.025 % External Cream; APPLY PEA-SIZE AMOUNT TO DRY FACE AT BEDTIME. START EVERY OTHER NIGHT; Therapy: 19Aug2016 to Recorded Rx By: YOGI; Dispense: 28 Days ; #:20 CREA; Refill: 0; RUBIO = N; Record; Last Updated By: Miracle Bailey; 06/10/2017 10:47:22 AM Wellbutrin XL 150 MG Oral Tablet Extended Release 24 Hour; Take 1 tablet daily; Therapy: (Recorded:10Jun2017) to Recorded Dispense: 0 Days ; #: Sufficient Tablet Extended Release 24 Hour; Refill: 0; RUBIO = N; Record; Last Updated By: Miracle Bailey; 06/10/2017 10:47:22 AM Vitals Vital Signs Recorded: 18Oct2017 03:05PM Qvshnfhwvkt65.5 C Heart Rate78 Ushlfksbuju98 Ynqjzzvn847 Ojpdphmhj46 O2 Kkakfdmgzp87 [id number] Physical Exam Patient appears in no apparent distress and is well-hydrated. Vital signs noted. Examination of the heart reveals a regular rate and rhythm with a normal S1 and S2 with no murmur, rub, or gallop. Lung e xam is normal. The neck is supple with a normal swallow. Examination of the skin of the upper chest, upper arms, and neck reveal isolated 3-4 mm mildly erythematous papules with no particular pattern. Diagnoses/Problems Dermatitis (692.9) (L30.9) Orders Dermatitis Dermatology Referral Evaluation and Treatment Evaluate AND Treat Status: Hold For - Scheduling Requested for: [id number] Ordered;For: Dermatitis; Ordered By: Matt Taylor Performed: Due: 16Jan2018 Provider Impressions Dermatitis does appear to have a significant stress-related component. Does not appear infectious or specifically allergic. Patient Discussion/Summary Today you were seen by Claudia Please see your primary care physician in days. as needed May continue the hydrocortisone cream as needed. Eat a bland diet and may try Pepto-Bismol as directed. 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 End of Encounter Meds Atenolol 25 MG Oral Tablet; Take 1 tablet daily; Therapy: 36Ffc0161 to (Evaluate:85Dag6567) Recorded [facility] Milk of Magnesia 400 MG/5ML Oral Suspension; TAKE 5 ML BY MOUTH ONCE DAILY NEEDED; Therapy: [id number] to Recorded Gas-X Extra Strength 125 MG Oral Capsule; Therapy: 11Jan2015 to Recorded Humira Pen 40 MG/0.8ML Subcutaneous Pen-injector Kit; Inject 0.8ml subcutaneously once every two weeks; Therapy: 17Sep2017 to (Evaluate:07Jan2018) Requested for: 17Sep2017; Last Rx:17Sep2017 Ordered Ketoconazole 2 % External Cream; Therapy: (Recorded:52Nry3262) to Recorded Klor-Con 10 10 MEQ Oral Tablet Extended Release; Take 1 tablet daily; Therapy: (Recorded:10Jun2017) to Recorded MedroxyPROGESTERone Acetate 10 MG Oral Tablet; Therapy: 82Dvb0206 to Recorded Multi-Vitamin Gummies Oral Tablet Chewable; CHEW AND SWALLOW 1 TABLET DAILY; Therapy: (Recorded:10Jun2017) to Recorded NIFEdipine Powder; Therapy: 13Aug2014 to Recorded Omeprazole 20 MG Oral Capsule Delayed Release; TAKE 1 CAPSULE Daily; Therapy: (Recorded:10Jun2017) to Recorded ProAir HFA 108 (90 Base) MCG/ACT Inhalation Aerosol Solution; INHALE 2 PUFFS EVERY 4-6 HOURS NEEDED; Therapy: 22Jun2013 to Recorded Salicylic Acid 6 % External Gel; Therapy: 22May2016 to Recorded Tretinoin 0.025 % External Cream; APPLY PEA-SIZE AMOUNT TO DRY FACE AT BEDTIME. START EVERY OTHER NIGHT; Therapy: 19Aug2016 to Recorded Wellbutrin XL 150 MG Oral Tablet Extended Release 24 Hour (BuPROPion HCl ER (XL)); Take 1 tablet daily; Therapy: (Recorded:10Jun2017) to Recorded Signatures Electronically signed by : Matt Taylor MD; Oct 18 2017 3:30PM EST (Author) OBSOLETE Observed: 10/16/2017 Status: COMPLETED Source: [place] 12:00 AM CLINIC OTHER CAMPUS REPOSITORY Refill ([facility]CARDWST) KAYA ARCE ([id number]) 1985 F Date Time Provider Department 10/16/17 STERLING STERN AGCARDWST During your visit today, we recorded the following information about you: Milan Dahl RN 10/18/2017 8:26 AM Signed Called pt, she states she tried to fill rx but [facility] told her she is out of potassium. [facility] called [facility] and spoke [facility], she relates they have had glitches and must not have received the order. Potassium reordered Milan Stern MD 10/18/2017 11:40 AM Signed This does not match her medication list. Please confirm current dose. MD Sterling Malik MD 10/18/2017 12:19 PM Signed The following approved medication requests have been transmitted electronically. Signed Prescriptions Disp Refills potassium chloride (KLOR-CON 10) 10 mEq tablet 60 tablet 11 Sig: Take 2 tablets by mouth once daily. RUBIO: No Authorizing Provider: STERLING STERN Refused Prescriptions Disp Refills KLOR-CON 10 10 mEq tablet [Pharmacy Med Name: KLOR-CON 10 MEQ TABLET] 30 tablet 6 Sig: TAKE 1 TABLET BY MOUTH ONCE DAILY. RUBIO: No Refused By: STERLING STERN MD Reason for Refusal: Change not appropriate Sterling Stern MD Allergies As of Date: 10/16/2017 Noted Allergy Reaction BEES 06/18/2010 4 - Hives 7 - Swelling DOXYCYCLINE 09/26/2008 8 - GI Upset Comments: Not able to tolerate due to GI effects EUCALYPTUS 06/07/2007 Comments: tachycardia close airway FLEXERIL (CYCLOBENZAPRINE) 04/28/2012 1 - Mental Status Change Comments: Made patient feel worse than before KEFLEX (CEPHALEXIN) 05/09/2002 4 - Hives 10 - Anaphylaxis LATEX 08/15/2008 7 - Swelling MINOCYCLINE 03/07/2008 8 - GI Upset nitroglycerin suppositories [Othe*01/31/2008 NSAIDS (NON-STEROIDAL ANTI-INFLAM*2015 5 - Intolerance TIZANIDINE 12/04/2010 1 - Mental Status Change Comments: Low HR, cold and clammy (subjective only) VICODIN (HYDROCODONE-ACETAMINOPHE*03/31/2010 9 - Itching Date Reviewed: 10/06/2017 Reviewed by: Bill Lopez Ma - Fully Assessed Reason for Visit: Refill Request [94] Order(s):potassium chloride (KLOR-CON 10) 10 mEq tabletTake 2 tablets by mouth once daily.Disp: 60 tabletRfl: 11 Prescriptions as of 10/16/2017 Sig: POTASSIUM CHLORIDE ER 10 MEQ * Take 2 tablets by mouth once * TRIAMCINOLONE ACETONIDE 0.1 %* Apply 1 application to affect* ATENOLOL 25 MG TABLET TAKE 1 TABLET BY MOUTH ONCE D* DICLOFENAC POTASSIUM 50 MG TA* Take 50 mg by mouth three florentin* MEDROXYPROGESTERONE 10 MG TAB* Take 10 mg by mouth once sienna* HYDROCORTISONE TOPICAL Apply to affected area. OMEPRAZOLE 20 MG CAPSULE,JACQUE* TAKE 1 CAPSULE BY MOUTH ONCE * LIDOCAINE 2 % MUCOSAL JELLY Apply 1 application to affect* DIAZEPAM 5 MG TABLET Take 1 tablet by mouth once d* DEXAMETHASONE 1 MG TABLET Take 1 mg by mouth once daily* MAGNESIUM HYDROXIDE 400 MG/5 * Take 5 mL by mouth once daily* DOCUSATE SODIUM 100 MG CAPSULE Take 100 mg by mouth twice da* SIMETHICONE 125 MG CAPSULE Take 1 tablet by mouth three * HYDROCORTISONE ACETATE 25 MG * 1 Suppository by RECTAL route* TRANEXAMIC ACID 650 MG TABLET Take 2 tablets by mouth three* ONDANSETRON HCL 4 MG TABLET Take 4 mg by mouth every 8 ho* COMPOUNDED PRESCRIPTION Apply to affected area. Nife* ALBUTEROL 90 MCG/ACTUATION AE* Inhale 2 Puffs as instructed * * CETIRIZINE 10 MG TABLET Take 1 tablet by mouth once d* * MULTI-VITAMIN ORAL Take by mouth once daily. 2 * Problem List As Of Date 10/16/2017 Noted Resolved PAIN IN JOINT, LOWER LEG [M25.569] INVALID FOR*01/24/2008 ASTHMA UNSPECIFIED [J45.909] INVALID FOR* Priority: Mild CHRONIC RHINITIS [J31.0] INVALID FOR* DYSMETABOLIC SYNDROME X [E88.81] INVALID FOR* Priority: Moderate More... IBS (IRRITABLE BOWEL SYNDROME) [K58.9] INVALID FOR* ANAL FISSURE [K60.2] BENIGN NEOPLASM LG BOWEL [D12.6] RECTAL AND ANAL HEMORRHAGE [K62.5] 08/01/2008 ESOPHAGEAL REFLUX [K21.9] DEVIATED NASAL SEPTUM [J34.2] INVALID FOR* POLYCYSTIC OVARIES [E28.2] INVALID FOR* Urinary calculus, unspecified [N20.9] INVALID FOR*10/06/2017 Priority: Mild More... IMPAIRED FASTING GLUCOSE [R73.01] INVALID FOR* Priority: Mild ABN GLUCOSE-ANTEPARTUM [O99.810] 08/01/2008 More... THROMBOS HEMORRHOIDS NOS [K64.5] INVALID FOR* Priority: Mild More... Routine general medical examination at a health*INVALID FOR*11/21/2011 Priority: Mild Class: Chronic More... ROUTINE MELT HELPER EXAMINATION [Z01.419] INVALID FOR*08/15/2008 Class: Chronic More... HX OF CERVICAL DYSPLASIA [Z87.410] INVALID FOR* More... ANXIETY STATE NOS [F41.1] INVALID FOR* Priority: Moderate More... PREV DELIVERY NOS-ANTEPART [O34.219] INVALID FOR* POOR GRTH-ANTEPART [O36.5990] INVALID FOR*09/26/2008 Routine gynecological examination [Z01.419] INVALID FOR*11/21/2011 Class: Chronic More... HIDRADENITIS [L73.2] INVALID FOR* Priority: Moderate More... 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 Pyoderma, unspecified [L08.0] INVALID FOR*05/21/2016 Pain in joint, lower leg [M25.569] INVALID FOR* Headache [R51] INVALID FOR* Lumbago [M54.5] INVALID FOR* Spasm of muscle [M62.838] INVALID FOR*10/06/2017 Adrenal insufficiency [E27.40] Muscle spasm [M62.838] INVALID FOR* Calculus of kidney [N20.0] INVALID FOR* Lyme disease [A69.20] INVALID FOR* Seborrheic Dermatitis [L21.8] INVALID FOR* Xerosis cutis [L85.3] INVALID FOR*05/21/2016 Calculus of ureter [N20.1] INVALID FOR* Pyoderma [L08.0] INVALID FOR*05/21/2016 Pruritus [L29.9] INVALID FOR*05/21/2016 Monilial vulvovaginitis [B37.3] INVALID FOR* Migraine without aura, with intractable migrain*INVALID FOR* Microhematuria [R31.29] INVALID FOR* Flank pain [R10.9] INVALID FOR* Female stress incontinence [N39.3] INVALID FOR* Menstrual irregularity [N92.6] INVALID FOR* Palpitations [R00.2] INVALID FOR* Backache, unspecified [M54.9] INVALID FOR*10/06/2017 Anorectal polyp [K62.0, K62.1] INVALID FOR* Low back pain [M54.5] INVALID FOR*10/06/2017 Buttock pain [M79.1] INVALID FOR*10/06/2017 Lumbosacral neuritis [M54.17] INVALID FOR* Gross hematuria [R31.0] INVALID FOR* History of kidney stones [Z87.442] INVALID FOR* Straining on urination [R39.16] INVALID FOR* Hesitancy [R39.11] INVALID FOR* Difficulty voiding [R39.198] INVALID FOR* Chronic pelvic pain in female [R10.2, G89.29] INVALID FOR* Endometriosis [N80.9] INVALID FOR* Obesity, Class I, BMI 30-34.9 [E66.9] INVALID FOR* Prescriptions ordered this encounter Disp Refills Start End POTASSIUM CHLORIDE ER 10 MEQ TABLET,* 60 t* 11 10/18/2017 Route: ORAL Sig: Take 2 tablets by mouth once daily. Medications Discontinued During This Encounter potassium chloride (KLOR-CON 10) 10 * 30 t* 6 08/20/2017 10/18/2017 Class: Med Update Route: ORAL Sig: Take 2 tablets by mouth once daily. Disc: Reason for discontinue is not on file. Encounter Status:Closed by MILAN DAHL RN on 10/18/17 FOLLOW UP (RHEUMATOLOGY) Observed: 10/11/2017 Status: UNK Source: [facility] 6:32 AM [facility] Chief Complaint Visit For: Other follow up visit History of Present Illness 32 year old woman with spondyloarthropathy with sacroiliitis here for follow up. She stated that she has been noting pain in the sacroiliac joints bilaterally. She is also noted pain in the left leg 2 w eeks ago. She reported that she has loss of sensation in the leg at that time. She is noting pain in both shoulders. She has also had costochondritis with chest wall tenderness. She is stiff in the morn ing for 4 hours. She thinks the fingers on the right hand are swelling but denied joint warmth or erythema. She is working with gastroenterology to sort out if she has inflammatory bowel disease. She reported that she has a temperature up to 101 at least once a week. She continues to be tired. Her appetite is up and down as his her weight. She has noted posterior cervical lymphadenopathy. She is having night sweats. She is noting sores in her mouth but denied nasal ulcers. She denied dry eyes or dry mouth. She is noting occasional dyspnea but denied cough. She is having abdominal pain with jes rrhea and blood in her stools but denied nausea, vomiting, constipation, hematuria. She has intermittent dysuria. She is noting a rash on her upper body. She is having headaches. She stated she is havin g difficulty sleeping. She is currently in temporary housing. All other systems were reviewed and were negative for complaint. 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) Proteinuria (791.0) (R80.9) Pruritus ani (698.0) (L29.0) Rectal polyp (569.0) (K62.1) Right wrist pain (719.43) (M25.531) Transaminitis (790.4) (R74.0) Dysuria (788.1) (R30.0) Sacroiliitis (720.2) (M46.1) Bilateral leg weakness (729.89) (R29.898) Spondyloarthropathy (721.90) (M46.90) Past Medical History History of constipation (V12.79) (Z87.19) History of endometriosis (V13.29) (Z87.42) History of nausea and vomiting (V12.79) (Z87.898) History of Lyme disease (088.81) (A69.20) Personal history of arthritis (V13.4) (Z87.39) Personal history of asthma (V12.69) (Z87.09) Personal history of cardiac murmur (V12.59) (Z86.79) Surgical History History of Section History of Complete Colonoscopy History of Hernia Repair History of Sigmoidoscopy (Fiberoptic) Family History History of back surgery Family history of cardiac disorder (V17.49) (Z82.49) Family history of diabetes mellitus (V18.0) (Z83.3) Family history of gout (V18.19) (Z82.69) Family history of hypertension (V17.49) (Z82.49) Family history of kidney disease (V18.69) (Z84.1) Family history of malignant neoplasm of breast (V16.3) (Z80.3) Family history of leukemia (V16.6) (Z80.6) Family history of myocardial infarction (V17.3) (Z82.49) Family history of Down syndrome (V19.5) (Z82.79) Social History Never a smoker Occasional alcohol use Allergies Keflex Hives;; Recorded By: Shane Gold; 09/19/2013 1:13:45 PM Doxycycline Hyclate TABS Diarrhea; Recorded By: Shane Gold; 09/19/2013 1:13:45 PM Latex Recorded By: Shane Gold; 09/19/2013 1:13:45 PM Denied Bactrim Hives;; Updated By: Ora Jin; 06/09/2016 4:36:05 PM Codeine Derivatives Updated By: Carrie Robetr; 08/27/2016 10:37:25 AM Current Meds Lidocaine HCl - 2 % External Gel; APPLY DIRECTED; Therapy: 65Lvv0096 to (Evaluate:25Jan2016); Last Rx:[id number] Ordered Rx By: Claudia Peterson; Dispense: 30 Days ; #:1 X 5 ML Tube (10 Tubes); Refill: 0;For: PMH: History of rectal fissure; RUBIO = N; Sent To: [id number]; Last Updated By: Miracle Bailey; 07/06/2017 3:27:23 PM Atenolol 25 MG Oral Tablet; Take 1 tablet daily; Therapy: 38Hce1009 to (Evaluate:48Kai9669) Recorded Dispense: 0 Days ; #: Sufficient Tablet; Refill: 0; RUBIO = N; Record; Last Updated By: Miracle Bailey; 06/10/2017 10:47:21 AM Cetirizine HCl - 10 MG Oral Tablet; TAKE 1 TABLET DAILY NEEDED; Therapy: 11Vgr6613 to Recorded Dispense: 0 Days ; #: Sufficient Tablet; Refill: 0; RUBIO = N; Record; Last Updated By: Miracle Bailey; 07/06/2017 3:27:22 PM Clindamycin Phosphate 1 % External Lotion; APPLY TOPICALLY TO AFFECTED AREA ON THE FACE ONCE DAILY IN THE MORNING; Therapy: 28Aug2016 to Recorded Rx By: YOGI; Dispense: 30 Days ; #:60 LOTN; Refill: 0; RUBIO = N; Record; Last Updated By: Miracle Bailey; 07/06/2017 3:27:23 PM CVS Milk of Magnesia 400 MG/5ML Oral Suspension; TAKE 5 ML BY MOUTH ONCE DAILY NEEDED; Therapy: 20Aug2016 to Recorded Rx By: SAGE; Dispense: 30 Days ; #:355 SUSP; Refill: 0; RUBIO = N; Record; Last Updated By: Miracle Bailey; 06/10/2017 10:47:22 AM Finacea 15 % External Gel; APPLY ONE APPLICATION TO AFFECTED AREA(S) TWICE DAILY; Therapy: 15Dec2016 to Recorded Rx By: SONNY; Dispense: 30 Days ; #:50 GEL; Refill: 0; RUBIO = N; Record; Last Updated By: Miracle Bailey; 08/18/2017 11:26:12 AM Gas-X Extra Strength 125 MG Oral Capsule; Therapy: 11Jan2015 to Recorded Dispense: 10 Days ; #:30 CAPS; Refill: 0; RUBIO = N; Record; Last Updated By: Miracle Bailey; 06/10/2017 10:47:21 AM Ketoconazole 2 % External Cream; Therapy: (Recorded:18Dyh5999) to Recorded Dispense: 0 Days ; #: Sufficient CREA; Refill: 0; RUBIO = N; Record; Last Updated By: Ora Jin; 07/06/2017 2:38:49 PM Klor-Con 10 10 MEQ Oral Tablet Extended Release; Take 1 tablet daily; Therapy: (Recorded:10Jun2017) to Recorded Dispense: 0 Days ; #: Sufficient Tablet Extended Release; Refill: 0; RUBIO = N; Record; Last Updated By: Miracle Bailey; 06/10/2017 10:47:22 AM Multi-Vitamin Gummies Oral Tablet Chewable; CHEW AND SWALLOW 1 TABLET DAILY; Therapy: (Recorded:10Jun2017) to Recorded Dispense: 0 Days ; #: Sufficient Tablet Chewable; Refill: 0; RUBIO = N; Record; Last Updated By: Miracle Bailey; 06/10/2017 10:47:21 AM NIFEdipine Powder; Therapy: 81Fol1347 to Recorded Dispense: 15 Days ; #:30 POWD; Refill: 0; RUBIO = N; Record; Last Updated By: Miracle Bailey; 06/10/2017 10:47:21 AM Omeprazole 20 MG Oral Capsule Delayed Release; TAKE 1 CAPSULE Daily; Therapy: (Recorded:10Jun2017) to Recorded Dispense: 0 Days ; #: Sufficient Capsule Delayed Release; Refill: 0; RUBIO = N; Record; Last Updated By: Miracle Bailey; 06/10/2017 10:47:21 AM Ondansetron 4 MG Oral Tablet Disintegrating; TAKE 4 MG Every 4 hours PRN nausea; Therapy: 15Dec2015 to (Evaluate:32Xir0416) Recorded Dispense: 4 Days ; #: Sufficient TBDP; Refill: 0; RUBIO = N; Record; Last Updated By: Miracle Bailey; 07/06/2017 3:27:23 PM ProAir HFA 108 (90 Base) MCG/ACT Inhalation Aerosol Solution; INHALE 2 PUFFS EVERY 4-6 HOURS NEEDED; Therapy: 22Jun2013 to Recorded Dispense: 0 Days ; #: Sufficient GM; Refill: 0; RUBIO = N; Record; Last Updated By: Miracle Bailey; 06/10/2017 10:47:20 AM Salicylic Acid 6 % External Gel; Therapy: 70Ooe1401 to Recorded Dispense: 30 Days ; #:40 GEL; Refill: 0; RUBIO = N; Record; Last Updated By: Miracle Bailey; 06/10/2017 10:47:22 AM Tretinoin 0.025 % External Cream; APPLY PEA-SIZE AMOUNT TO DRY FACE AT BEDTIME. START EVERY OTHER NIGHT; Therapy: 14Jnk9638 to Recorded Rx By: YOGI; Dispense: 28 Days ; #:20 CREA; Refill: 0; RUBIO = N; Record; Last Updated By: Miracle Bailey; 06/10/2017 10:47:22 AM Wellbutrin XL 150 MG Oral Tablet Extended Release 24 Hour; Take 1 tablet daily; Therapy: (Recorded:10Jun2017) to Recorded Dispense: 0 Days ; #: Sufficient Tablet Extended Release 24 Hour; Refill: 0; RUBIO = N; Record; Last Updated By: Miracle Bailey; 06/10/2017 10:47:22 AM Vitals Vital Signs Recorded: 06Jul2017 02:06PM Aqrpzdbwhrm09.6 F Heart Rate99 Pgpcqdairwp63 Yrkagtwk173 Bgkhpuzdi65 Bzczrz383.6 cm Psjnws77.4 kg BMI Dijpezmkni29.17 BSA Calculated1.84 Physical Exam Tired appearing woman in no acute distress. HEENT: NCAT, PERRL, EOMI. Oropharynx without erythema, exudate or ulcerations. Neck supple with full range of motion. Without lymphadenopathy. Lungs clear to auscultation bilaterally. Cardiac exam with regular rate and rhythm, normal S1, S2 without murmur, rub or gallop. Chest wall tenderness greatest on the left anterior chest. Abdomen soft, with mild tende rness without rebound or guarding and without hepatosplenomegaly or masses. Bowel sounds normoactive. Skin without rashes other than facial acne. Extremities without clubbing, cyanosis or edema. Musculo skeletal exam with slight loss of flexion in the right wrist. There was full range of motion in all other joints without erythema, warmth or swelling except as noted. There was lower spine and right sac roiliac joint tenderness. She had limited forward bend and was unable to touch her toes. Neurologic exam with intact CN 2-12. Sensation intact to light touch. Motor 5/5 throughout except hip flexors and knee flexors and extensors which were limited by pain and unable to be adequately assessed. Diagnoses/Problems Sacroiliitis (720.2) (M46.1) Bilateral leg weakness (729.89) (R29.898) Costochondritis (733.6) (M94.0) Provider Impressions 32 year old woman with spondyloarthropathy with sacroiliitis, costochondritis, leg weakness that ma be related to pain and disuse who continues to be symptomatic. She is working with gastroenterology to try to sort out if she has inflammatory bowel disease. Once that has been decided, I would like to get her on a TNF inhibitor. The following recommendations were given: 1) We will work on getting approval for an MRI of her sacroiliac joints to see if it is active. 2) She was asked to work on strengthening her legs. 3) She was asked to let me know what she finds out from gynecology and if she will need surgery. 4) She was asked to call if any change. 5) I will speak with Dr. Cuellar. Patient Discussion/Summary Sacroiliitis, costochondritis, leg weakness: 1) I will work on getting approval for an MRI of your sacroiliac joints to see if it is active. 2) Work on strengthening your legs. 3) Let me know what you find out from gynecology. 4) Call if any change. 5) I will speak with Dr. Cuellar. 6) Follow up depending upon what we end up doing. TimeTime Stamp_UH: Time Spent With Patient: 25 minutes of which greater than 50 percent was spent counseling and or coordinating care. End of Encounter Meds Atenolol 25 MG Oral Tablet; Take 1 tablet daily; Therapy: 64Xue3906 to (Evaluate:14Dec2014) Recorded [facility] Milk of Magnesia 400 MG/5ML Oral Suspension; TAKE 5 ML BY MOUTH ONCE DAILY NEEDED; Therapy: 30Tbm4591 to Recorded Gas-X Extra Strength 125 MG Oral Capsule; Therapy: 11Jan2015 to Recorded Humira Pen 40 MG/0.8ML Subcutaneous Pen-injector Kit; Inject 0.8ml subcutaneously once every two weeks; Therapy: 17Sep2017 to (Evaluate:07Jan2018) Requested for: 17Sep2017; Last Rx:17Sep2017 Ordered Ketoconazole 2 % External Cream; Therapy: (Recorded:26Uxt2235) to Recorded Klor-Con 10 10 MEQ Oral Tablet Extended Release; Take 1 tablet daily; Therapy: (Recorded:10Jun2017) to Recorded MedroxyPROGESTERone Acetate 10 MG Oral Tablet; Therapy: 90Xsk9893 to Recorded Multi-Vitamin Gummies Oral Tablet Chewable; CHEW AND SWALLOW 1 TABLET DAILY; Therapy: (Recorded:10Jun2017) to Recorded NIFEdipine Powder; Therapy: 77Yzp8366 to Recorded Omeprazole 20 MG Oral Capsule Delayed Release; TAKE 1 CAPSULE Daily; Therapy: (Recorded:10Jun2017) to Recorded ProAir HFA 108 (90 Base) MCG/ACT Inhalation Aerosol Solution; INHALE 2 PUFFS EVERY 4-6 HOURS NEEDED; Therapy: 22Jun2013 to Recorded Salicylic Acid 6 % External Gel; Therapy: 92Zjn1029 to Recorded Tretinoin 0.025 % External Cream; APPLY PEA-SIZE AMOUNT TO DRY FACE AT BEDTIME. START EVERY OTHER NIGHT; Therapy: 19Aug2016 to Recorded Wellbutrin XL 150 MG Oral Tablet Extended Release 24 Hour (BuPROPion HCl ER (XL)); Take 1 tablet daily; Therapy: (Recorded:10Jun2017) to Recorded Signatures Electronically signed by : Ora Jin MD, PhD; Oct 11 2017 6:32AM EST (Author) MERY Observed: 10/11/2017 Status: COMPLETED Source: [place] 12:00 AM [facility] REPOSITORY Telephone (DERMST) KAYA ARCE ([id number]) 1985 F Date Time Provider Department 10/11/17 PETAR DENNIS) DERMST During your visit today, we recorded the following information about you: Cece Loving LPN 10/11/2017 10:13 AM Signed Received request from [facility]. The patient requires an authorization for for quantity in regards to Triamcinolone. [facility] will only cover 15 grams every 26 days unless they receive explanation of need for larger quantity. They can be called at . Please advise on how you would like to proceed. Also, see My Chart as patient was questioning need for alternative medication. Cece Dennis MD 10/11/2017 11:35 AM Signed Please contact the number below. The patient will need at least 80 g per month due to the distribution of the lesions on the face, neck, arms, shoulders, chest, and back. Thank you, Petar Dennis MD, FAAD Cece Loving LPN 10/11/2017 2:57 PM Signed I called the phone number listed below. ID# [id number] I was advised to call They will fax over a form for our completion. Form received, initiated and placed on Dr Dennis's desk Cece Dennis MD 11/01/2017 6:52 PM Signed Done, in out box, please fax. MD Cece Guzman LPN 11/02/2017 8:18 AM Signed P/A faxed to [phone]. Confirmed receipt, via fax. Cece Loving LPN Allergies As of Date: 10/11/2017 Noted Allergy Reaction BEES 06/18/2010 4 - Hives 7 - Swelling DOXYCYCLINE 09/26/2008 8 - GI Upset Comments: Not able to tolerate due to GI effects EUCALYPTUS 06/07/2007 Comments: tachycardia close airway FLEXERIL (CYCLOBENZAPRINE) 04/28/2012 1 - Mental Status Change Comments: Made patient feel worse than before KEFLEX (CEPHALEXIN) 05/09/2002 4 - Hives 10 - Anaphylaxis LATEX 08/15/2008 7 - Swelling MINOCYCLINE 03/07/2008 8 - GI Upset nitroglycerin suppositories [Othe*01/31/2008 NSAIDS (NON-STEROIDAL ANTI-INFLAM*2015 5 - Intolerance TIZANIDINE 12/04/2010 1 - Mental Status Change Comments: Low HR, cold and clammy (subjective only) VICODIN (HYDROCODONE-ACETAMINOPHE*03/31/2010 9 - Itching Date Reviewed: 10/06/2017 Reviewed by: Bill Lopez Ma - Fully Assessed Reason for Visit: Medication Problem [65] Prescriptions as of 10/11/2017 Sig: TRIAMCINOLONE ACETONIDE 0.1 %* Apply 1 application to affect* ATENOLOL 25 MG TABLET TAKE 1 TABLET BY MOUTH ONCE D* DICLOFENAC POTASSIUM 50 MG TA* Take 50 mg by mouth three florentin* MEDROXYPROGESTERONE 10 MG TAB* Take 10 mg by mouth once sienna* X POTASSIUM CHLORIDE ER 10 MEQ * Take 2 tablets by mouth once * HYDROCORTISONE TOPICAL Apply to affected area. OMEPRAZOLE 20 MG CAPSULE,JACQUE* TAKE 1 CAPSULE BY MOUTH ONCE * LIDOCAINE 2 % MUCOSAL JELLY Apply 1 application to affect* DIAZEPAM 5 MG TABLET Take 1 tablet by mouth once d* DEXAMETHASONE 1 MG TABLET Take 1 mg by mouth once daily* MAGNESIUM HYDROXIDE 400 MG/5 * Take 5 mL by mouth once daily* DOCUSATE SODIUM 100 MG CAPSULE Take 100 mg by mouth twice da* SIMETHICONE 125 MG CAPSULE Take 1 tablet by mouth three * HYDROCORTISONE ACETATE 25 MG * 1 Suppository by RECTAL route* TRANEXAMIC ACID 650 MG TABLET Take 2 tablets by mouth three* ONDANSETRON HCL 4 MG TABLET Take 4 mg by mouth every 8 ho* COMPOUNDED PRESCRIPTION Apply to affected area. Nife* ALBUTEROL 90 MCG/ACTUATION AE* Inhale 2 Puffs as instructed * * CETIRIZINE 10 MG TABLET Take 1 tablet by mouth once d* * MULTI-VITAMIN ORAL Take by mouth once daily. 2 * Problem List As Of Date 10/11/2017 Noted Resolved PAIN IN JOINT, LOWER LEG [M25.569] INVALID FOR*01/24/2008 ASTHMA UNSPECIFIED [J45.909] INVALID FOR* Priority: Mild CHRONIC RHINITIS [J31.0] INVALID FOR* DYSMETABOLIC SYNDROME X [E88.81] INVALID FOR* Priority: Moderate More... IBS (IRRITABLE BOWEL SYNDROME) [K58.9] INVALID FOR* ANAL FISSURE [K60.2] BENIGN NEOPLASM LG BOWEL [D12.6] RECTAL AND ANAL HEMORRHAGE [K62.5] 08/01/2008 ESOPHAGEAL REFLUX [K21.9] DEVIATED NASAL SEPTUM [J34.2] INVALID FOR* POLYCYSTIC OVARIES [E28.2] INVALID FOR* Urinary calculus, unspecified [N20.9] INVALID FOR*10/06/2017 Priority: Mild More... IMPAIRED FASTING GLUCOSE [R73.01] INVALID FOR* Priority: Mild ABN GLUCOSE-ANTEPARTUM [O99.810] 08/01/2008 More... THROMBOS HEMORRHOIDS NOS [K64.5] INVALID FOR* Priority: Mild More... Routine general medical examination at a health*INVALID FOR*11/21/2011 Priority: Mild Class: Chronic More... ROUTINE MELT HELPER EXAMINATION [Z01.419] INVALID FOR*08/15/2008 Class: Chronic More... HX OF CERVICAL DYSPLASIA [Z87.410] INVALID FOR* More... ANXIETY STATE NOS [F41.1] INVALID FOR* Priority: Moderate More... PREV DELIVERY NOS-ANTEPART [O34.219] INVALID FOR* POOR GRTH-ANTEPART [O36.5990] INVALID FOR*09/26/2008 Routine gynecological examination [Z01.419] INVALID FOR*11/21/2011 Class: Chronic More... HIDRADENITIS [L73.2] INVALID FOR* Priority: Moderate More... 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 Pyoderma, unspecified [L08.0] INVALID FOR*05/21/2016 Pain in joint, lower leg [M25.569] INVALID FOR* Headache [R51] INVALID FOR* Lumbago [M54.5] INVALID FOR* Spasm of muscle [M62.838] INVALID FOR*10/06/2017 Adrenal insufficiency [E27.40] Muscle spasm [M62.838] INVALID FOR* Calculus of kidney [N20.0] INVALID FOR* Lyme disease [A69.20] INVALID FOR* Seborrheic Dermatitis [L21.8] INVALID FOR* Xerosis cutis [L85.3] INVALID FOR*05/21/2016 Calculus of ureter [N20.1] INVALID FOR* Pyoderma [L08.0] INVALID FOR*05/21/2016 Pruritus [L29.9] INVALID FOR*05/21/2016 Monilial vulvovaginitis [B37.3] INVALID FOR* Migraine without aura, with intractable migrain*INVALID FOR* Microhematuria [R31.29] INVALID FOR* Flank pain [R10.9] INVALID FOR* Female stress incontinence [N39.3] INVALID FOR* Menstrual irregularity [N92.6] INVALID FOR* Palpitations [R00.2] INVALID FOR* Backache, unspecified [M54.9] INVALID FOR*10/06/2017 Anorectal polyp [K62.0, K62.1] INVALID FOR* Low back pain [M54.5] INVALID FOR*10/06/2017 Buttock pain [M79.1] INVALID FOR*10/06/2017 Lumbosacral neuritis [M54.17] INVALID FOR* Gross hematuria [R31.0] INVALID FOR* History of kidney stones [Z87.442] INVALID FOR* Straining on urination [R39.16] INVALID FOR* Hesitancy [R39.11] INVALID FOR* Difficulty voiding [R39.198] INVALID FOR* Chronic pelvic pain in female [R10.2, G89.29] INVALID FOR* Endometriosis [N80.9] INVALID FOR* Obesity, Class I, BMI 30-34.9 [E66.9] INVALID FOR* Encounter Status:Closed by PETAR DENNIS MD on 10/11/17 CBC Collected: 10/09/2017 Status: F Source: [facility] 1:46 PM [facility] REPOSITORY TYPE CODE TESTS RESULT OUT OF REFERENCE UNITS RANGE LAB WBC(LOINC) 4.50-10.80 10 3/mcL WBC 9.80 LAB RBCCT(LOINC 4.10-5.30 10 6/mcL ) RBC 4.65 LAB HGB(LOINC) 12.0-16.0 G/dL Hgb 13.1 LAB HCT(LOINC) 34.0-46.0 % Hct 39.1 LAB MCV(LOINC) 80.0-99.0 fL MCV 84.0 LAB MCH(LOINC) 27.0-33.0 pg MCH 28.2 LAB MCHC(LOINC) 32.0-36.0 G/dL MCHC 33.5 LAB RDW(LOINC) 11.5-15.5 % RDW 13.5 LAB PLT(LOINC) 150-450 10 3/mcL Platelet 306 LAB MPV(LOINC) 6.6-10.5 fL MPV 7.1 Performed By: #### CBC, ADIFF, ANEU, GFR, BMP, DIMER, TROPI #### [place] [address] .AUTO DIFF Collected: 10/09/2017 Status: F Source: [facility] 1:46 PM [facility] REPOSITORY TYPE CODE TESTS RESULT OUT OF REFERENCE UNITS RANGE LAB KARLEE(LOINC) 50.0-75.0 % Neutrophil % 65.2 LAB LYM(LOINC) 20.0-40.0 % Lymphocyte % 26.7 LAB MON(LOINC) 2.0-13.0 % Monocyte % 5.7 LAB EO(LOINC) 0.0-6.0 % Eosinophil % 2.0 LAB BAS(LOINC) 0.0-2.5 % Basophil % 0.4 LAB ABLYM(LOIN 0.90-4.32 10 3/mcL C) Lymphocyte, 2.60 Absolute LAB FERMIN(LOINC 0.09-1.40 10 3/mcL ) Monocyte, 0.60 Absolute LAB AEOS(LOINC 0.00-0.65 10 3/mcL ) Eosinophil, 0.20 Absolute LAB ABAS(LOINC 0.00-0.27 10 3/mcL ) Basophil, 0.00 Absolute Performed By: #### CBC, ADIFF, ANEU, GFR, BMP, DIMER, TROPI #### [place] [address] .NEUABS Collected: 10/09/2017 Status: F Source: [facility] 1:46 [facility] REPOSITORY TYPE CODE TESTS RESULT OUT OF REFERENCE UNITS RANGE LAB ANEU(LOINC) 2.25-8.10 10 3/mcL Neutrophil, 6.40 Absolute Performed By: #### CBC, ADIFF, ANEU, GFR, BMP, DIMER, TROPI #### [place] [address] .GFR Collected: 10/09/2017 Status: F Source: [facility] 1:46 [facility] REPOSITORY TYPE CODE TESTS RESULT OUT OF REFERENCE UNITS RANGE LAB GFRAA(LOINC ml/min/1.73 ) sqm GFR >60 [place] Result Comment: GFR Population mean for , Non- Americans Ages 20-29 = 116 mL/min/1.73 sq.m. Ages 30-39 = 107 mL/min/1.73 sq.m. Ages 40-49 = 99 mL/min/1.73 sq.m. Ages 50-59 = 93 mL/min/1.73 sq.m. Ages 60-69 = 85 mL/min/1.73 sq.m. Ages 70+ = 75 mL/min/1.73 sq.m. Chronic Kidney Disease: Less than 60 mL/min/1.73 square meters End Stage Renal Disease: Less than 15 mL/min/1.73 square meters LAB GFRNO(LOINC) ml/min/1.73sqm GFR Non- >60 Result Comment: GFR Population mean for , Non- Americans Ages 20-29 = 116 mL/min/1.73 sq.m. Ages 30-39 = 107 mL/min/1.73 sq.m. Ages 40-49 = 99 mL/min/1.73 sq.m. Ages 50-59 = 93 mL/min/1.73 sq.m. Ages 60-69 = 85 mL/min/1.73 sq.m. Ages 70+ = 75 mL/min/1.73 sq.m. Chronic Kidney Disease: Less than 60 mL/min/1.73 square meters End Stage Renal Disease: Less than 15 mL/min/1.73 square meters Performed By: #### CBC, ADIFF, ANEU, GFR, BMP, DIMER, TROPI #### [place] [address] BMP Collected: 10/09/2017 Status: F Source: [facility] 1:46 PM [facility] REPOSITORY TYPE CODE TESTS RESULT OUT OF REFERENCE UNITS RANGE LAB GLU(LOINC) 70-110 mg/dL Glucose Level 107 LAB NA(LOINC) 136-145 mEq/L Sodium Level 141 LAB K(LOINC) 3.5-5.0 mEq/L Potassium Level 4.2 Result Comment: Specimen slightly hemolyzed LAB CL(LOINC) 98-110 mEq/L Chloride 107 LAB CO2(LOINC) 22-32 mEq/L CO2 25 LAB EBAL(LOINC) 4.0-15.0 mEq/L Electrolyte Balance 9.0 LAB BUN(LOINC) 8.0-22.0 mg/dL BUN 9.0 LAB CRE(LOINC) 0.50-1.20 mg/dL Creatinine Lvl (s) 0.69 LAB BC(LOINC) 10.0-22.0 ratio BUN/Creatinine Ratio 13.0 LAB CA(LOINC) 8.4-10.1 mg/dL Calcium Lvl 9.2 Performed By: #### CBC, ADIFF, ANEU, GFR, BMP, DIMER, TROPI #### [facility] [address] [place] [id number] DIMER Collected: 10/09/2017 Status: F Source: [facility] 1:46 PM [facility] REPOSITORY TYPE CODE TESTS RESULT OUT OF RANGE REFERENCE UNITS LAB DIMER(LOINC 0-230 ng/mL D-DU ) D-Dimer <200 Result Comment: Results reported in D- DU ng/ml. Negative for D-dimer. DVT/PE is highly unlikely. Note: False negative results may be seen in patients on anticoagulant therapy. The result of the D-Dimer test should be evaluated in the context of all the clinical and laboratory data available. In those instances where the laboratory result does not agree with the clinical evaluation, additional tests should be performed accordingly. Performed By: #### CBC, ADIFF, ANEU, GFR, BMP, DIMER, TROPI #### [place] [address] TROPI Collected: 10/09/2017 Status: F Source: [facility] 1:46 PM [facility] REPOSITORY TYPE CODE TESTS RESULT OUT OF REFERENCE UNITS RANGE LAB TROPI(LOINC 0.000-0.040 ng/mL ) Troponin I <0.015 Result Comment: Troponin I reference ranges (12/04/13): 0.00-0.040 ng/mL Negative and non-diagnostic. >0.040 ng/mL Consistent with cardiac damage, increased clinical risk and possibility of myocardial infarction. Serial measurements, a rise & fall in test results, clinical history, appropriate symptoms and/or ECG changes may help assess possibility of VA. *Other non-acute coronary syndrome conditions such as CHF, myocarditis, pulmonary emboli, sepsis and cardiac surgery could result in myocardial damage and increased troponin levels. Performed By: #### CBC, ADIFF, ANEU, GFR, BMP, DIMER, TROPI #### [address] [address] XR CHEST 1 VIEW Observed: 10/09/2017 Status: F Source: [facility] 1:44 PM [facility] REPOSITORY ORIGINAL XR CHEST 1 VIEW PORTABLE AP TIME: 1340 CLINICAL STATEMENT: chest pain COMPARISON: None FINDINGS: The cardiomediastinal contours are normal. There is no consolidation, vascular congestion, pleural effusion, or pneumothorax. No displaced fractures are identified. IMPRESSION: No acute radiographic findings. Interpreted By: Wilmar Wilson DO Preliminary Report By: Wilmar Wilson DO Electronically Signed By: Wilmar Wilson DO Dictated Date: 10/09/2017 1:52:00 PM Prelim Date: 10/09/2017 1:52:00 PM Sign Date: 10/09/2017 1:52:30 PM PROGRESS Observed: 10/06/2017 Status: COMPLETED Source: [place] 11:45 AM [facility] REPOSITORY HNO ID: [id number] Author: Ora Stein (Bisque Brusher) [place] Service: (none) Author Type: Nurse Practitioner Type: Progress Notes Filed: 10/08/2017 9:48 PM Note Text: Here for follow up Pt of Dr. Lozano ACTIVE PROBLEM LIST Hidradenitis - 09/26/2008 (Moderate priority) Comment: H/o infections dating back to age 14 +/- Anxiety State, Unspecified - 08/01/2008 (Moderate priority) Comment: Son with CP, worsening basline anxiety; + FH (mom) Worsens difficulty with stooling, re: hemorrhoids, fissure, bleeding Dysmetabolic Syndrome X - 02/17/2006 (Moderate priority) Comment: Gestational diabetes, diet-controlled; Impaired fasting glucose -- improved to <100 as of 2008 Unspecified Thrombosed Hemorrhoids - 03/24/2008 (Mild priority) Comment: Hemorrhoidectomy recommended by colorectal surgery, Dr. Daniels -- recurrent bleeding continues, as of 07/05 Impaired Fasting Glucose - 01/24/2008 (Mild priority) Unspecified Asthma(493.90) - 02/17/2006 (Mild priority) Obesity, Class I, Bmi 30-34.9 - 10/06/2017 Endometriosis - 06/22/2016 Chronic Pelvic Pain in Female - 04/17/2015 Gross Hematuria - 12/25/2014 History of Kidney Stones - 12/25/2014 Straining On Urination - 12/25/2014 Hesitancy - 12/25/2014 Difficulty Voiding - 12/25/2014 Lumbosacral Neuritis - 09/11/2013 Anorectal Polyp - 10/12/2012 Palpitations - 05/24/2012 Menstrual Irregularity - 04/28/2012 Microhematuria - 01/12/2012 Flank Pain - 01/12/2012 Female Stress Incontinence - 01/12/2012 Migraine Without Aura, With Intractable Migraine, So Stated, Without Mention of Status Migrainosus - 10/20/2011 Monilial Vulvovaginitis - 06/10/2011 Calculus of Ureter - 04/06/2011 Seborrheic Dermatitis - 03/08/2011 Calculus of Kidney - 02/10/2011 Lyme Disease - 02/10/2011 Muscle Spasm - 12/04/2010 Adrenal Insufficiency (Hcc) Headache(784.0) - 04/10/2010 Lumbago - 04/10/2010 Pain in Joint, Lower Leg - 03/05/2010 Folliculitis - 12/21/2009 Acne Vulgaris: Inflammatory Grade III to IV - 09/08/2009 Scars: Acne and Excoriation--related - 09/08/2009 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 atenolol (TENORMIN) 25 mg tablet TAKE 1 TABLET BY MOUTH ONCE DAILY. diclofenac potassium (CATAFLAM) 50 mg tablet Take 50 mg by mouth three times daily. medroxyPROGESTERone (PROVERA, CYCRIN) 10 mg tablet Take 10 mg by mouth once daily. potassium chloride (KLOR-CON 10) 10 mEq tablet Take 2 tablets by mouth once daily. HYDROCORTISONE TOPICAL Apply to affected area. omeprazole (PRILOSEC) 20 mg capsule TAKE 1 CAPSULE BY MOUTH ONCE DAILY. lidocaine (XYLOCAINE) 2 % jelly Apply 1 application to affected area as directed. diazePAM (VALIUM) 5 mg tablet Take 1 tablet by mouth once daily as needed. dexamethasone (DECADRON) 1 mg tablet Take 1 mg by mouth once daily as needed. magnesium hydroxide (MILK OF MAGNESIA) 400 mg/5 mL suspension Take 5 mL by mouth once daily as needed. docusate sodium (COLACE) 100 mg capsule Take 100 mg by mouth twice daily as needed. Simethicone (GAS FREE EXTRA STRENGTH) 125 mg cap Take 1 tablet by mouth three times daily as needed. hydrocortisone (HEMORRHOIDAL HC) 25 mg suppository 1 Suppository by RECTAL route twice daily as needed. Insert one (1) in the rectum each night before bed. Tranexamic Acid 650 mg tab Take 2 tablets by mouth three times daily as needed (until bleeding slows or stops for up to 5 days). ondansetron (ZOFRAN, HYDROCHLORIDE,) 4 mg tablet Take 4 mg by mouth every 8 hours as needed. COMPOUNDED PRESCRIPTION Apply to affected area. Nifedipine 0.3% apply to anal area twice daily. albuterol 90 mcg/actuation Aero Inhale 2 Puffs as instructed every 4 hours as needed (shortness of breath). cetirizine 10 mg tablet Take 1 tablet by mouth once daily. MULTI-VITAMIN ORAL Take by mouth once daily. 2 tablets daily No current facility-administered medications for this visit. HPI Saw Dr Charles in 2009 - +FMS, no autoimmune or autoinflammatory disease Saw Dr Kang in 2010 - +FMS, no autoimmune connective tissue disease Saw Dr. Lozano in 2017 - no evidence of an inflammatory condition Has been followed by Dr. Jin for 4 years but she is leaving and coming to [facility] so she needs a new financial adviser. Dr. Jin has diagnosed her with SpA and prescribed Humira. PRIOR EVALUATION Abnormal/Positive: mildly elevated crp of 1.6 with normal sedimentation rate (temp recorded at that visit was 99.9 F, repeat crp a few months later was normal), 08/2007 (outside hospital): crp of 9.57 (normal <6, was treated for kidney stones), kidney stone analysis demonstrated calcium oxalate stones, lumbar spine MRI which showed conjoined nerves (?) at L4-L5 and S1, [address] normal except for nonobstructing kidney stone and adnexal cyst ? Normal/Negative: IAN, REINIER, ds DNA, RF, ccp, wsr, PTH ,CK,UA, tsh, brain MRI, IgG subclasses, blood cultures, cxr, gammainterferon,mycoplasma urine culture, histo urinary ag,fungal battery, EBV and HIV. ? ? THERAPIES/MEDICATIONS TRIED Naproxen, Zanaflex, Tylenol, Cymbalta, Neurontin (ineffective), vicodin, meclofenamate, savella, prednisone (ineffective), Lyrica (ineffective), zoloft, Effexor, Tramadol, PT (for back). ? Prednisone for various indications (paresthesias, rash etc) has not helped with her fevers, fatigue, pain,weakness or malaise. It did help the paresthesia the one time she was on it for that reason (it resolved the numbness in the foot, she did not have problems with her hands at the time). Since last Rheum evaluation Dr Jin prescribed Humira but Kaya hasn't started it yet because at first she was sick, and now she wants to get established with a new rheum before she starts it in case there are problems. Humira has been prescribed for years of IBS symptoms, joint pain, abnormal CT (08/27/17 [facility] cortical enthesophytes at lateral right iliac wing, early degenerative changes of the bilateral SI joints, and mild joint space narrowing and periarticular illial sclerosis) REVIEW OF SYSTEMS: October 06, 2017 CONSTITUTIONAL: Fever: Yes Fatigue: Yes Pain: Yes EYES: Pain: Yes Redness: Yes Loss of vision: Yes Dryness: No EAR, NOSE, MOUTH, THROAT: Nose bleeds: No Hearing loss: Yes Sores in mouth: Yes Swallowing problems: Yes Dry mouth: No CARDIOVASCULAR: Chest pain: No Swelling in the feet or legs: Yes RESPIRATORY: Shortness of breath: Yes Pain with breathing: Yes, episodes of costochondritis Chronic cough: No Coughing up blood: No GASTROINTESTINAL: Heartburn: Yes, longstanding but worse with diclofenac Nausea: Yes Diarrhea: Yes Blood in the stool or black stool: Yes Abdominal pain: Yes GENITOURINARY: Blood in urine: Yes Pain or burning on urination: No MUSCULOSKELETAL: Joint pain: Yes, shoulders, very stiff and sore in the morning, improves over the day. Joint swelling: Yes Morning stiffness in joints: Yes Muscle weakness: Yes Back pain: Yes SKIN: Rashes: Yes, pustular intermittent rash on neck, shoulders, upper chest, upper back. Gets better with prednisone. Sun sensitive rashes: No Color changes of hands or feet in the cold: No Hair loss: Yes Nail changes: Yes NEUROLOGICAL: Headaches: Yes Dizziness: Yes Numbness or tingling: Yes Memory loss: Yes Seizures: No HEMATOLOGIC/LYMPHATIC: Swollen glands: Yes Anemia: No ALLERGIES/IMMUNOLOGIC: Allergies (other than medications): Yes Increased susceptibility to infection: Yes KNOWN MEDICAL CONDITIONS: Diabetes: No Thyroid disease: No High blood pressure: No Social History Substance Use Topics - Smoking status: Never Smoker - Smokeless tobacco: Never Used - Alcohol use No Comment: Seldom PHYSICAL EXAM BP 120/75 (BP Site: Left Arm, BP Position: Sitting, BP Cuff Size: Large Adult) Pulse 80 Temp 36.6 ?C (97.8 ?F) (Temporal Artery) Wt 81.2 kg (179 lb) BMI 32.74 kg/m? General Appearance: no acute distress, AANDOx3 Skin: multiple scattered small (5 mm - 15 mm) shallow open ulcerated areas on neck, shoulders, upper chest, upper back. (see photos) Eyes: CAROLIN, no exudate Oral: no ulcers Neck: without masses Thyroid: not enlarged Lymph nodes: no cervical enlarged nodes Lungs: CTA bilat Cardiac: RRR Vascular: full pulses; radial, pedal Musculoskeletal: no tenderness, no synovitis. Does have +++ tenderness to palpation over left greater trochanter. Neurologic: cranial nerves 2-12 intact Gait: normal Motor: good strength, upper and lower, proximal and distal Sensory: grossly intact Right side of neck Right shoulder RAPID 3: DISEASE ACTIVITY: Weighed Score Levels: 0 - 1: Near Remission 1.3 - 2.0: Low Severity 2.3 - 4.0: Moderate Severity 4.3 - 10.0: High Severity RAPID-3 Weighed Score 05/06/2016 10/06/2017 RAPID 3 Weighed Score 6.4 6.3 ASSESSMENT/PLAN: 1. 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 Jin at , has an active Rx for Humira for SpA based on symptoms of IBS, joint pain, and an abnormal hip CT. No s/s infection today, ok to start Humira. RTC 3 months to establish with new rheum staff physician. 2. Trochanteric bursitis of left hip - ICD9: 726.5, ICD10: M70.62 Offered injection, pt prefers to treat conservatively for now. She will contact me if symptoms worsen or fail to improve. Ora Bañuelos APRN.SHANK BREAKER I spent 40 minutes in the visit, with more than 50% of the total [id number] time of the visit in counseling / coordination of care. CNOV Observed: 10/06/2017 Status: COMPLETED Source: [place] 11:10 AM [facility] REPOSITORY Office Visit (RHEUMN) KAYA ARCE ([id number]) 1985 F Date Time Provider Department 10/06/17 11:10 AM ORA BAÑUELOS (PRINTED CIRCUIT PHOTOGRAPHER) [place] During your visit today, we recorded the following information about you: Temperature Pulse Blood pressure Weight 97.8 degrees 80/minute 120/75 81.2 kg Ora Bañuelos APRN.SHANK BREAKER 10/08/2017 9:48 PM Addendum Here for follow up Pt of Dr. Lozano ACTIVE PROBLEM LIST Hidradenitis - 09/26/2008 (Moderate priority) Comment: H/o infections dating back to age 14 +/- Anxiety State, Unspecified - 08/01/2008 (Moderate priority) Comment: Son with CP, worsening basline anxiety; + FH (mom) Worsens difficulty with stooling, re: hemorrhoids, fissure, bleeding Dysmetabolic Syndrome X - 02/17/2006 (Moderate priority) Comment: Gestational diabetes, diet-controlled; Impaired fasting glucose -- improved to <100 as of 2008 Unspecified Thrombosed Hemorrhoids - 03/24/2008 (Mild priority) Comment: Hemorrhoidectomy recommended by colorectal surgery, Dr. Daniels -- recurrent bleeding continues, as of 07/05 Impaired Fasting Glucose - 01/24/2008 (Mild priority) Unspecified Asthma(493.90) - 02/17/2006 (Mild priority) Obesity, Class I, Bmi 30-34.9 - 10/06/2017 Endometriosis - 06/22/2016 Chronic Pelvic Pain in Female - 04/17/2015 Gross Hematuria - 12/25/2014 History of Kidney Stones - 12/25/2014 Straining On Urination - 12/25/2014 Hesitancy - 12/25/2014 Difficulty Voiding - 12/25/2014 Lumbosacral Neuritis - 09/11/2013 Anorectal Polyp - 10/12/2012 Palpitations - 05/24/2012 Menstrual Irregularity - 04/28/2012 Microhematuria - 01/12/2012 Flank Pain - 01/12/2012 Female Stress Incontinence - 01/12/2012 Migraine Without Aura, With Intractable Migraine, So Stated, Without Mention of Status Migrainosus - 10/20/2011 Monilial Vulvovaginitis - 06/10/2011 Calculus of Ureter - 04/06/2011 Seborrheic Dermatitis - 03/08/2011 Calculus of Kidney - 02/10/2011 Lyme Disease - 02/10/2011 Muscle Spasm - 12/04/2010 Adrenal Insufficiency (Hcc) Headache(784.0) - 04/10/2010 Lumbago - 04/10/2010 Pain in Joint, Lower Leg - 03/05/2010 Folliculitis - 12/21/2009 Acne Vulgaris: Inflammatory Grade III to IV - 09/08/2009 Scars: Acne and Excoriation--related - 09/08/2009 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 atenolol (TENORMIN) 25 mg tablet TAKE 1 TABLET BY MOUTH ONCE DAILY. diclofenac potassium (CATAFLAM) 50 mg tablet Take 50 mg by mouth three times daily. medroxyPROGESTERone (PROVERA, CYCRIN) 10 mg tablet Take 10 mg by mouth once daily. potassium chloride (KLOR-CON 10) 10 mEq tablet Take 2 tablets by mouth once daily. HYDROCORTISONE TOPICAL Apply to affected area. omeprazole (PRILOSEC) 20 mg capsule TAKE 1 CAPSULE BY MOUTH ONCE DAILY. lidocaine (XYLOCAINE) 2 % jelly Apply 1 application to affected area as directed. diazePAM (VALIUM) 5 mg tablet Take 1 tablet by mouth once daily as needed. dexamethasone (DECADRON) 1 mg tablet Take 1 mg by mouth once daily as needed. magnesium hydroxide (MILK OF MAGNESIA) 400 mg/5 mL suspension Take 5 mL by mouth once daily as needed. docusate sodium (COLACE) 100 mg capsule Take 100 mg by mouth twice daily as needed. Simethicone (GAS FREE EXTRA STRENGTH) 125 mg cap Take 1 tablet by mouth three times daily as needed. hydrocortisone (HEMORRHOIDAL HC) 25 mg suppository 1 Suppository by RECTAL route twice daily as needed. Insert one (1) in the rectum each night before bed. Tranexamic Acid 650 mg tab Take 2 tablets by mouth three times daily as needed (until bleeding slows or stops for up to 5 days). ondansetron (ZOFRAN, HYDROCHLORIDE,) 4 mg tablet Take 4 mg by mouth every 8 hours as needed. COMPOUNDED PRESCRIPTION Apply to affected area. Nifedipine 0.3% apply to anal area twice daily. albuterol 90 mcg/actuation Aero Inhale 2 Puffs as instructed every 4 hours as needed (shortness of breath). cetirizine 10 mg tablet Take 1 tablet by mouth once daily. MULTI-VITAMIN ORAL Take by mouth once daily. 2 tablets daily No current facility-administered medications for this visit. HPI Saw Dr Charles in 2009 - +FMS, no autoimmune or autoinflammatory disease Saw Dr Kang in 2010 - +FMS, no autoimmune connective tissue disease Saw Dr. Lozano in 2017 - no evidence of an inflammatory condition Has been followed by Dr. Jin for 4 years but she is leaving and coming to [facility] so she needs a new financial adviser. Dr. Jin has diagnosed her with SpA and prescribed Humira. PRIOR EVALUATION Abnormal/Positive: mildly elevated crp of 1.6 with normal sedimentation rate (temp recorded at that visit was 99.9 F, repeat crp a few months later was normal), 08/2007 (outside hospital): crp of 9.57 (normal <6, was treated for kidney stones), kidney stone analysis demonstrated calcium oxalate stones, lumbar spine MRI which showed conjoined nerves (?) at L4-L5 and S1, [address] normal except for nonobstructing kidney stone and adnexal cyst ? Normal/Negative: IAN, REINIER, ds DNA, RF, ccp, wsr, PTH ,CK,UA, tsh, brain MRI, IgG subclasses, blood cultures, cxr, gammainterferon,mycoplasma urine culture, histo urinary ag,fungal battery, EBV and HIV. ? ? THERAPIES/MEDICATIONS TRIED Naproxen, Zanaflex, Tylenol, Cymbalta, Neurontin (ineffective), vicodin, meclofenamate, savella, prednisone (ineffective), Lyrica (ineffective), zoloft, Effexor, Tramadol, PT (for back). ? Prednisone for various indications (paresthesias, rash etc) has not helped with her fevers, fatigue, pain,weakness or malaise. It did help the paresthesia the one time she was on it for that reason (it resolved the numbness in the foot, she did not have problems with her hands at the time). Since last Rheum evaluation Dr Jin prescribed Humira but Kaya hasn't started it yet because at first she was sick, and now she wants to get established with a new rheum before she starts it in case there are problems. Humira has been prescribed for years of IBS symptoms, joint pain, abnormal CT (08/27/17 [facility] cortical enthesophytes at lateral right iliac wing, early degenerative changes of the bilateral SI joints, and mild joint space narrowing and periarticular illial sclerosis) REVIEW OF SYSTEMS: October 06, 2017 CONSTITUTIONAL: Fever: Yes Fatigue: Yes Pain: Yes EYES: Pain: Yes Redness: Yes Loss of vision: Yes Dryness: No EAR, NOSE, MOUTH, THROAT: Nose bleeds: No Hearing loss: Yes Sores in mouth: Yes Swallowing problems: Yes Dry mouth: No CARDIOVASCULAR: Chest pain: No Swelling in the feet or legs: Yes RESPIRATORY: Shortness of breath: Yes Pain with breathing: Yes, episodes of costochondritis Chronic cough: No Coughing up blood: No GASTROINTESTINAL: Heartburn: Yes, longstanding but worse with diclofenac Nausea: Yes Diarrhea: Yes Blood in the stool or black stool: Yes Abdominal pain: Yes GENITOURINARY: Blood in urine: Yes Pain or burning on urination: No MUSCULOSKELETAL: Joint pain: Yes, shoulders, very stiff and sore in the morning, improves over the day. Joint swelling: Yes Morning stiffness in joints: Yes Muscle weakness: Yes Back pain: Yes SKIN: Rashes: Yes, pustular intermittent rash on neck, shoulders, upper chest, upper back. Gets better with prednisone. Sun sensitive rashes: No Color changes of hands or feet in the cold: No Hair loss: Yes Nail changes: Yes NEUROLOGICAL: Headaches: Yes Dizziness: Yes Numbness or tingling: Yes Memory loss: Yes Seizures: No HEMATOLOGIC/LYMPHATIC: Swollen glands: Yes Anemia: No ALLERGIES/IMMUNOLOGIC: Allergies (other than medications): Yes Increased susceptibility to infection: Yes KNOWN MEDICAL CONDITIONS: Diabetes: No Thyroid disease: No High blood pressure: No Social History Substance Use Topics - Smoking status: Never Smoker - Smokeless tobacco: Never Used - Alcohol use No Comment: Seldom PHYSICAL EXAM BP 120/75 (BP Site: Left Arm, BP Position: Sitting, BP Cuff Size: Large Adult) Pulse 80 Temp 36.6 ?C (97.8 ?F) (Temporal Artery) Wt 81.2 kg (179 lb) BMI 32.74 kg/m? General Appearance: no acute distress, AANDOx3 Skin: multiple scattered small (5 mm - 15 mm) shallow open ulcerated areas on neck, shoulders, upper chest, upper back. (see photos) Eyes: CAROLIN, no exudate Oral: no ulcers Neck: without masses Thyroid: not enlarged Lymph nodes: no cervical enlarged nodes Lungs: CTA bilat Cardiac: RRR Vascular: full pulses; radial, pedal Musculoskeletal: no tenderness, no synovitis. Does have +++ tenderness to palpation over left greater trochanter. Neurologic: cranial nerves 2-12 intact Gait: normal Motor: good strength, upper and lower, proximal and distal Sensory: grossly intact Right side of neck Right shoulder RAPID 3: DISEASE ACTIVITY: Weighed Score Levels: 0 - 1: Near Remission 1.3 - 2.0: Low Severity 2.3 - 4.0: Moderate Severity 4.3 - 10.0: High Severity RAPID-3 Weighed Score 05/06/2016 10/06/2017 RAPID 3 Weighed Score 6.4 6.3 ASSESSMENT/PLAN: 1. 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 Jin at , has an active Rx for Humira for SpA based on symptoms of IBS, joint pain, and an abnormal hip CT. No s/s infection today, ok to start Humira. RTC 3 months to establish with new rheum staff physician. 2. Trochanteric bursitis of left hip - ICD9: 726.5, ICD10: M70.62 Offered injection, pt prefers to treat conservatively for now. She will contact me if symptoms worsen or fail to improve. Ora Bañuelos, TRACIE.SHANK BREAKER I spent 40 minutes in the visit, with more than 50% of the total lbwq-la-nzoc time of the visit in counseling / coordination of care. Referring Provider: SELF [200] Allergies As of Date: 10/06/2017 Noted Allergy Reaction BEES 06/18/2010 4 - Hives 7 - Swelling DOXYCYCLINE 09/26/2008 8 - GI Upset Comments: Not able to tolerate due to GI effects EUCALYPTUS 06/07/2007 Comments: tachycardia close airway FLEXERIL (CYCLOBENZAPRINE) 04/28/2012 1 - Mental Status Change Comments: Made patient feel worse than before KEFLEX (CEPHALEXIN) 05/09/2002 4 - Hives 10 - Anaphylaxis LATEX 08/15/2008 7 - Swelling MINOCYCLINE 03/07/2008 8 - GI Upset nitroglycerin suppositories [Othe*01/31/2008 NSAIDS (NON-STEROIDAL ANTI-INFLAM*2015 5 - Intolerance TIZANIDINE 12/04/2010 1 - Mental Status Change Comments: Low HR, cold and clammy (subjective only) VICODIN (HYDROCODONE-ACETAMINOPHE*03/31/2010 9 - Itching Date Reviewed: 10/06/2017 Reviewed by: Bill Lopez Ma - Fully Assessed Primary Visit Diagnosis:Spondyloarthritis (HCC) [M46.90] Other Visit Diagnosis:Trochanteric bursitis of left hip [M70.62] Prescriptions as of 10/06/2017 Sig: TRIAMCINOLONE ACETONIDE 0.1 %* Apply 1 application to affect* ATENOLOL 25 MG TABLET TAKE 1 TABLET BY MOUTH ONCE D* DICLOFENAC POTASSIUM 50 MG TA* Take 50 mg by mouth three florentin* MEDROXYPROGESTERONE 10 MG TAB* Take 10 mg by mouth once sienna* POTASSIUM CHLORIDE ER 10 MEQ * Take 2 tablets by mouth once * HYDROCORTISONE TOPICAL Apply to affected area. OMEPRAZOLE 20 MG CAPSULE,JACQUE* TAKE 1 CAPSULE BY MOUTH ONCE * LIDOCAINE 2 % MUCOSAL JELLY Apply 1 application to affect* DIAZEPAM 5 MG TABLET Take 1 tablet by mouth once d* DEXAMETHASONE 1 MG TABLET Take 1 mg by mouth once daily* MAGNESIUM HYDROXIDE 400 MG/5 * Take 5 mL by mouth once daily* DOCUSATE SODIUM 100 MG CAPSULE Take 100 mg by mouth twice da* SIMETHICONE 125 MG CAPSULE Take 1 tablet by mouth three * HYDROCORTISONE ACETATE 25 MG * 1 Suppository by RECTAL route* TRANEXAMIC ACID 650 MG TABLET Take 2 tablets by mouth three* ONDANSETRON HCL 4 MG TABLET Take 4 mg by mouth every 8 ho* COMPOUNDED PRESCRIPTION Apply to affected area. Nife* ALBUTEROL 90 MCG/ACTUATION AE* Inhale 2 Puffs as instructed * * CETIRIZINE 10 MG TABLET Take 1 tablet by mouth once d* * MULTI-VITAMIN ORAL Take by mouth once daily. 2 * Medication notes this encounter DEXAMETHASONE 1 MG TABLET >> Bill Lopez Ma 10/06/2017 11:24 AM >> BILL LOPEZ MA WedOct 06, 2017 11:24 AM Problem List As Of Date 10/06/2017 Noted Resolved PAIN IN JOINT, LOWER LEG [M25.569] INVALID FOR*01/24/2008 ASTHMA UNSPECIFIED [J45.909] INVALID FOR* Priority: Mild CHRONIC RHINITIS [J31.0] INVALID FOR* DYSMETABOLIC SYNDROME X [E88.81] INVALID FOR* Priority: Moderate More... IBS (IRRITABLE BOWEL SYNDROME) [K58.9] INVALID FOR* ANAL FISSURE [K60.2] BENIGN NEOPLASM LG BOWEL [D12.6] RECTAL AND ANAL HEMORRHAGE [K62.5] 08/01/2008 ESOPHAGEAL REFLUX [K21.9] DEVIATED NASAL SEPTUM [J34.2] INVALID FOR* POLYCYSTIC OVARIES [E28.2] INVALID FOR* Urinary calculus, unspecified [N20.9] INVALID FOR*10/06/2017 Priority: Mild More... IMPAIRED FASTING GLUCOSE [R73.01] INVALID FOR* Priority: Mild ABN GLUCOSE-ANTEPARTUM [O99.810] 08/01/2008 More... THROMBOS HEMORRHOIDS NOS [K64.5] INVALID FOR* Priority: Mild More... Routine general medical examination at a health*INVALID FOR*11/21/2011 Priority: Mild Class: Chronic More... ROUTINE MELT HELPER EXAMINATION [Z01.419] INVALID FOR*08/15/2008 Class: Chronic More... HX OF CERVICAL DYSPLASIA [Z87.410] INVALID FOR* More... ANXIETY STATE NOS [F41.1] INVALID FOR* Priority: Moderate More... PREV DELIVERY NOS-ANTEPART [O34.219] INVALID FOR* POOR GRTH-ANTEPART [O36.5990] INVALID FOR*09/26/2008 Routine gynecological examination [Z01.419] INVALID FOR*11/21/2011 Class: Chronic More... HIDRADENITIS [L73.2] INVALID FOR* Priority: Moderate More... 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 Pyoderma, unspecified [L08.0] INVALID FOR*05/21/2016 Pain in joint, lower leg [M25.569] INVALID FOR* Headache [R51] INVALID FOR* Lumbago [M54.5] INVALID FOR* Spasm of muscle [M62.838] INVALID FOR*10/06/2017 Adrenal insufficiency [E27.40] Muscle spasm [M62.838] INVALID FOR* Calculus of kidney [N20.0] INVALID FOR* Lyme disease [A69.20] INVALID FOR* Seborrheic Dermatitis [L21.8] INVALID FOR* Xerosis cutis [L85.3] INVALID FOR*05/21/2016 Calculus of ureter [N20.1] INVALID FOR* Pyoderma [L08.0] INVALID FOR*05/21/2016 Pruritus [L29.9] INVALID FOR*05/21/2016 Monilial vulvovaginitis [B37.3] INVALID FOR* Migraine without aura, with intractable migrain*INVALID FOR* Microhematuria [R31.29] INVALID FOR* Flank pain [R10.9] INVALID FOR* Female stress incontinence [N39.3] INVALID FOR* Menstrual irregularity [N92.6] INVALID FOR* Palpitations [R00.2] INVALID FOR* Backache, unspecified [M54.9] INVALID FOR*10/06/2017 Anorectal polyp [K62.0, K62.1] INVALID FOR* Low back pain [M54.5] INVALID FOR*10/06/2017 Buttock pain [M79.1] INVALID FOR*10/06/2017 Lumbosacral neuritis [M54.17] INVALID FOR* Gross hematuria [R31.0] INVALID FOR* History of kidney stones [Z87.442] INVALID FOR* Straining on urination [R39.16] INVALID FOR* Hesitancy [R39.11] INVALID FOR* Difficulty voiding [R39.198] INVALID FOR* Chronic pelvic pain in female [R10.2, G89.29] INVALID FOR* Endometriosis [N80.9] INVALID FOR* Obesity, Class I, BMI 30-34.9 [E66.9] INVALID FOR* Medications Discontinued During This Encounter dapsone 25 mg tablet 60 t* 3 07/12/2017 10/06/2017 Route: ORAL Sig: Take 2 tablets by mouth once daily. Two (2) X 25 mg tablets = 50 mg Patient not taking: Reported on 09/01/2017 Disc: Discontinued by another Health Care Provider MIRALAX / GATORADE PREP 0 02/17/2017 10/06/2017 Class: OTC Sig: Miralax 238gm bottle and (2) 32oz bottles of Gatorade, AND 4 Dulcolax 5mg tabs - as directed per instructions Patient not taking: Reported on 09/01/2017 Disc: Course of therapy completed ketoconazole (NIZORAL) 2 % cream 30 g 3 05/06/2017 10/06/2017 Route: TOPICAL Sig: Apply 1 application to affected area once daily as needed. Patient not taking: Reported on 09/01/2017 Disc: Course of therapy completed PREDNISONE ORAL 10/06/2017 Class: Historical Med Route: ORAL Sig: Take 50 mg by mouth once daily. Disc: Course of therapy completed Disposition: Return in about 3 months (around 01/06/2018) for SpA Dr Doherty. Follow-up and Disposition History Recorded Encounter Status:Closed by ORA BAÑUELOS CNP on 10/08/17 ORTHOPEDIC VISIT Observed: 09/28/2017 Status: F Source: [place] REPORT 3:48 PM [facility] REPOSITORY [facility] [address] [place] [id number] OFFICE VISIT Date of Service: 09/28/17 MR#: [id number] Acct: [id number] Name: KAYA ARCE Alexandro Rep #: [id number] : 1985 Provider: Elise Gamboa DO Age/Sex: 32/F Location: [facility] Status: Signed Intake Intake Visit Reasons: LEFT THIGH PAIN Is patient in pain?: Yes Pain scale (1-10): 6 Allergies eucalyptus Allergy (Mild, Verified 09/28/17 09:28) unknown latex Allergy (Mild, Verified 09/28/17 09:28) Unknown cephalexin monohydrate [From Keflex] Allergy (Verified 09/28/17 09:28) Anaphylaxis doxycycline Adverse Reaction (Verified 09/28/17 09:28) Diarrhea Medications Atenolol [Tenormin (beta Edson)] 25 mg PO DAILY 01/11/16 [History Confirmed 09/28/17] Omeprazole [Prilosec] 20 mg PO DAILY 11/30/16 [History Confirmed 09/28/17] Potassium Chloride [Klor-Con 10] 10 meq PO DAILY 03/03/17 [History Confirmed 09/28/17] cetirizine 10 mg tablet 10 mg PO QDAY 06/28/17 [History Confirmed 09/28/17] erythromycin-benzoyl peroxide 3 %-5 % topical gel 1 applic TOPICAL BID 06/28/17 [History Confirmed 09/28/17] hydrocortisone 100 mg/60 mL enema 100 mg RC QDAY 06/28/17 [History Confirmed 09/28/17] lidocaine-collagen 2 % topical gel 1 applic TOPICAL QD-TID PRN 06/28/17 [History Confirmed 09/28/17] bupropion HCl XL 150 mg 24 hr tablet, extended release 150 mg PO QAM 07/21/17 [History Confirmed 09/28/17] Prednisone 10 mg PO DAILY #63 tab 08/27/17 [Rx Confirmed 09/28/17] medroxyprogesterone 10 mg tablet 10 mg PO QDAY #10 tab 09/23/17 [Rx Confirmed 09/28/17] PFSH Medical History PCOS (polycystic ovarian syndrome) (Acute) Ankylosing spondylitis (Acute) Exercise-induced asthma (Acute) Mitral regurgitation (Acute) Endometriosis (Acute) Surgical History History of (Acute) History of hernia repair (Acute) Hx of removal of ovary (Acute) Family History Mother Heart disease Father Heart disease Diabetes Social History Smoking Status: Never smoker alcohol intake: never substance use type: does not use caffeine: Yes what type of physical activity do you participate in: walking frequency: 5-6 times per week seatbelt use: always do you feel safe at home: Yes additional social history: Single- Currently unemployed HPI LEFT THIGH PAIN: Details: KAYA ARCE is a 32 year old F here today refered by Dr Curran for left hip pain. She notes that a few months ago she had a half dollar size bump over her lateral hip and the bump started getting larger. She has increased pain with lifting her legs after a fall into the bathtub. Patient then went to the ED where she had an ultrasound and a CT scan. Patient was given the steroid which was not helpful. Patient saw her financial adviser and was told to add antiinflammatory. He went to her PCP who aspirated it and got blood. She notes that she was able to ambulate better. The bump comes and goes. She has been icing and heating. Her pain wakes her up at night. Patient has pain down her left leg and into her groin. She has a history of back pain and has had xrays/MRI. ROS Const Reports system reviewed and no additional complaints, except as docu Eyes Reports system reviewed and no additional complaints, except as docu ENT Reports system reviewed and no additional complaints, except as docu Card Reports system reviewed and no additional complaints, except as docu Resp Reports system reviewed and no additional complaints, except as docu GI Reports system reviewed and no additional complaints, except as docu Reports system reviewed and no additional complaints, except as docu Musc Reports joint pain, Reports limited joint movement Skin/Breast Reports system reviewed and no additional complaints, except as docu Neuro Yes system reviewed and no additional complaints, except as docu Psych Reports system reviewed and no additional complaints, except as docu Endo Reports system reviewed and no additional complaints, except as docu Ortho Exam Left Hip Skin/Wound: Yes CDI Contralateral Normal: Yes Hip: Present TTP Greater Troch and soft tissue swelling Impingement Test: 2 Labral Stress Test: 1 Special Tests: IT band snap Assessment AND Plan 1. Greater trochanteric bursitis of left hip M70.62 Plan in the context of MRI that was done at financial adviser's office did not encompass the entire left hip is only of the sacrum and did not include the area of concern. Because of this we will repeat the MRI she is also having more labile symptoms that are intra-articular she is complaining of groin pain she is a positive labral stress test on examination. MR arthrogram of the hip and will be also able to see the said bursal area see if she is having some issues at that she will return and we will discuss treatment options. Personally reviewed the patient's medical history, medications, surgeries and recent exams if available. X-rays were reviewed. There is no obvious fracture, dislocation, or lucency noted. Educated the patient on the anatomy of the hip and reviewed her need for a new MRI of the hip since her last MRI is not of the proper area. She has greater trochanteric bursitis with evident swelling/mass as well as labral tear signs. We will order a MRI with and without contrast. Instructed to rest, use ice prn. Follow up after MRI or sooner if pain, swelling, numbness or associated symptoms, or concerns develop. All questions answered. Patient in agreement of plan. Orders Orders: 2. Mass of left hip region R22.42 Orders Orders: 3. Tear of left acetabular labrum, initial encounter S73.192A Orders Orders: Plan Detail Other Orders Orders: Coding Level of Care Code Off vis,est,level 4 Diagnoses Greater trochanteric bursitis of left hip M70.62 Mass of left hip region R22.42 Tear of left acetabular labrum, initial encounter S73.192A Encounter type: initial encounter 09/28/17 [id number] <Electronically signed by Elise Gamboa DO> Date [facility] Signature: Date (if applicable) CC: HIP 2-3 VIEWS WITH Observed: 09/28/2017 Status: F Source: [place] PELVIS 9:57 AM [facility] REPOSITORY [facility] Imaging Services [address] [place] [address] Hip 2-3 Views with Pelvis MR#: [id number] Acct: [id number] Name: KAYA ARCE Rep #: [id number] : 1985 F 32 From: Danny Ha MD PCP: Rudy Curran DO Status: REG CLI Study: Hip 2-3 Views with Pelvis Date of Exam: 09/28/17 Exam# [id number] Ordering Dr: Elise Gamboa DO STUDY: X-RAY - PELVIS AND LEFT HIP REASON FOR EXAM: Female, 32 years old. Atraumatic hip pain. TECHNIQUE: Radiological exam, hip, unilateral, with pelvis when performed; 2 or 3 views. COMPARISON: None. FINDINGS: There is a non-specific bowel gas pattern. Normal visualized soft tissue structures. Normal bilateral iliac wings, sacroiliac joints and visualized sacrum. Normal bilateral superior and inferior pubic rami. Normal pubic symphysis. Normal bilateral ischial tuberosities. Normal visualized femoral head. Normal acetabulum. Normal hip joint. RAD/Hip 2-3 Views with Pelvis IMPRESSION: No significant abnormality identified. Electronically Signed: Danny Ha MD at 11:28 EDT , Service support , CC: Elise Gamboa DO; Rudy Curran DO Profiler Hand: Signed L/S SPINE COMP/W Observed: 09/28/2017 Status: F Source: [place] BENDING VIEWS 9:57 AM [facility] REPOSITORY [facility] Imaging Services [address] [place] [address] L/S Spine Comp/w Bending Views MR#: [id number] Acct: [id number] Name: KAYA ARCE Rep #: [id number] : 1985 F 32 From: Danny Ha MD PCP: Rudy Curran DO Status: REG CLI Study: L/S Spine Comp/w Bending Views Date of Exam: 09/28/17 Exam# [id number] Ordering Dr: Elise Gamboa DO STUDY: X-RAY - LUMBOSACRAL SPINE REASON FOR EXAM: Female, 32 years old. Atraumatic back pain. TECHNIQUE: 7 view(s) of the lumbosacral spine including lateral flexion and extension views were obtained. COMPARISON: None FINDINGS: Normal lumbar lordosis. There is no substantial scoliosis. There is normal alignment of the vertebrae. There is limited flexion and extension with no abnormal motion. Normal vertebral bodies and endplates. Normal disc space heights. Normal bilateral sacral ala, sacroiliac joints, and visualized sacrum. Normal visualized soft tissue structures. RAD/L/S Spine Comp/w Bending Views IMPRESSION: Limited flexion and extension with no abnormal motion. No other significant abnormality. Electronically Signed: Danny Ha MD at 11:29 EDT , Service support , CC: Elise Gamboa DO; Rudy Curran DO Profiler Hand: Signed CR-L/S SPINE COMP/W Observed: 09/28/2017 Status: F Source: [place] BEND[place] VIEWS IMPORT 12:00 AM [facility] REPOSITORY Images were obtained outside of [facility] [id number] CR-HIP 2-3 VIEWS Observed: 09/28/2017 Status: F Source: [place] WITH PELVIS IMPORT 12:00 AM [facility] REPOSITORY Images were obtained outside of [facility] [id number] PROGRESS Observed: 09/27/2017 Status: COMPLETED Source: [place] 1:12 PM [facility] REPOSITORY HNO ID: [id number] Author: Cary Herrera (Pt) Chetan Service: (none) Author Type: Physical Therapist Type: Progress Notes Filed: 09/27/2017 1:12 PM Note Text: [facility] PHYSICAL THERAPY DISCONTINUANCE OF CARE Plan of Care Period: Start of Care Date: 02/24/17 Last Visit Date: 02/24/17 Therapy Program: Patient did not return for follow up care as planned. Please refer to last visit note for interventions provided for this episode of care. Assessment: Unable to formally assess goal achievement due to non-compliance with therapy plan of care. Reason for Discontinuation of Care: Patient has not returned to therapy or scheduled additional follow-up appointments. Cary Benton PT CNTHERAPY Observed: 09/27/2017 Status: COMPLETED Source: [place] 12:00 AM [facility] REPOSITORY OT/PT/Speech Visit (PHYTMN) KAYA ARCE ([id number]) 1985 F Date Time Provider Department 09/27/17 CARY BENTONPT) PHYTMN Date Time Provider Department Center 09/27/2017 [id number] *PHYTMN [facility] Reason for Visit: PT Discharge [752] Primary Visit Diagnosis:Muscle spasm [M62.838] Allergies As of Date: 09/27/2017 Noted Allergy Reaction BEES 06/18/2010 4 - Hives 7 - Swelling DOXYCYCLINE 09/26/2008 8 - GI Upset Comments: Not able to tolerate due to GI effects EUCALYPTUS 06/07/2007 Comments: tachycardia close airway FLEXERIL (CYCLOBENZAPRINE) 04/28/2012 1 - Mental Status Change Comments: Made patient feel worse than before KEFLEX (CEPHALEXIN) 05/09/2002 4 - Hives 10 - Anaphylaxis LATEX 08/15/2008 7 - Swelling MINOCYCLINE 03/07/2008 8 - GI Upset nitroglycerin suppositories [Othe*01/31/2008 NSAIDS (NON-STEROIDAL ANTI-INFLAM*2015 5 - Intolerance TIZANIDINE 12/04/2010 1 - Mental Status Change Comments: Low HR, cold and clammy (subjective only) VICODIN (HYDROCODONE-ACETAMINOPHE*03/31/2010 9 - Itching Date Reviewed: 09/01/2017 Reviewed by: Ofelia Ceja LPN - Fully Assessed Prescriptions as of 09/27/2017 Sig: TRIAMCINOLONE ACETONIDE 0.1 %* Apply 1 application to affect* ATENOLOL 25 MG TABLET TAKE 1 TABLET BY MOUTH ONCE D* PREDNISONE ORAL Take 50 mg by mouth once sienna* DICLOFENAC POTASSIUM 50 MG TA* Take 50 mg by mouth three florentin* MEDROXYPROGESTERONE 10 MG TAB* Take 10 mg by mouth once sienna* POTASSIUM CHLORIDE ER 10 MEQ * Take 2 tablets by mouth once * HYDROCORTISONE TOPICAL Apply to affected area. DAPSONE 25 MG TABLET Take 2 tablets by mouth once * Patient not taking: Reported on 09/01/2017 OMEPRAZOLE 20 MG CAPSULE,JACQUE* TAKE 1 CAPSULE BY MOUTH ONCE * KETOCONAZOLE 2 % TOPICAL CREAM Apply 1 application to affect* Patient not taking: Reported on 09/01/2017 LIDOCAINE 2 % MUCOSAL JELLY Apply 1 application to affect* COMPOUNDED PRESCRIPTION Miralax 238gm bottle and (2) * Patient not taking: Reported on 09/01/2017 DIAZEPAM 5 MG TABLET Take 1 tablet by mouth once d* DEXAMETHASONE 1 MG TABLET Take 1 mg by mouth once daily* MAGNESIUM HYDROXIDE 400 MG/5 * Take 5 mL by mouth once daily* DOCUSATE SODIUM 100 MG CAPSULE Take 100 mg by mouth twice da* SIMETHICONE 125 MG CAPSULE Take 1 tablet by mouth three * HYDROCORTISONE ACETATE 25 MG * 1 Suppository by RECTAL route* TRANEXAMIC ACID 650 MG TABLET Take 2 tablets by mouth three* ONDANSETRON HCL 4 MG TABLET Take 4 mg by mouth every 8 ho* COMPOUNDED PRESCRIPTION Apply to affected area. Nife* ALBUTEROL 90 MCG/ACTUATION AE* Inhale 2 Puffs as instructed * * CETIRIZINE 10 MG TABLET Take 1 tablet by mouth once d* * MULTI-VITAMIN ORAL Take by mouth once daily. 2 * Progress Notes: Cary Benton, RUTHANN 09/27/2017 1:12 PM Signed [facility] PHYSICAL THERAPY DISCONTINUANCE OF CARE Plan of Care Period: Start of Care Date: 02/24/17 Last Visit Date: 02/24/17 Therapy Program: Patient did not return for follow up care as planned. Please refer to last visit note for interventions provided for this episode of care. Assessment: Unable to formally assess goal achievement due to non-compliance with therapy plan of care. Reason for Discontinuation of Care: Patient has not returned to therapy or scheduled additional follow-up appointments. Cary Benton, PT OBSOLETE Observed: 09/22/2017 Status: COMPLETED Source: [place] 12:00 AM [facility] REPOSITORY Refill (AGCAMILCARWST) KAYA ARCE ([id number]) 1985 F Date Time Provider Department 09/22/17 [place] During your visit today, we recorded the following information about you: Allergies As of Date: 09/22/2017 Noted Allergy Reaction BEES 06/18/2010 4 - Hives 7 - Swelling DOXYCYCLINE 09/26/2008 8 - GI Upset Comments: Not able to tolerate due to GI effects EUCALYPTUS 06/07/2007 Comments: tachycardia close airway FLEXERIL (CYCLOBENZAPRINE) 04/28/2012 1 - Mental Status Change Comments: Made patient feel worse than before KEFLEX (CEPHALEXIN) 05/09/2002 4 - Hives 10 - Anaphylaxis LATEX 08/15/2008 7 - Swelling MINOCYCLINE 03/07/2008 8 - GI Upset nitroglycerin suppositories [Othe*01/31/2008 NSAIDS (NON-STEROIDAL ANTI-INFLAM*2015 5 - Intolerance TIZANIDINE 12/04/2010 1 - Mental Status Change Comments: Low HR, cold and clammy (subjective only) VICODIN (HYDROCODONE-ACETAMINOPHE*03/31/2010 9 - Itching Date Reviewed: 09/01/2017 Reviewed by: Ofelia Ceja LPN - Fully Assessed Reason for Visit: Refill Request [94] Prescriptions as of 09/22/2017 Sig: X TRIAMCINOLONE ACETONIDE 0.1 %* Apply 1 application to affect* ATENOLOL 25 MG TABLET TAKE 1 TABLET BY MOUTH ONCE D* DICLOFENAC POTASSIUM 50 MG TA* Take 50 mg by mouth three florentin* MEDROXYPROGESTERONE 10 MG TAB* Take 10 mg by mouth once sienna* X PREDNISONE ORAL Take 50 mg by mouth once sienna* X POTASSIUM CHLORIDE ER 10 MEQ * Take 2 tablets by mouth once * HYDROCORTISONE TOPICAL Apply to affected area. X DAPSONE 25 MG TABLET Take 2 tablets by mouth once * Patient not taking: Reported on 09/01/2017 OMEPRAZOLE 20 MG CAPSULE,JACQUE* TAKE 1 CAPSULE BY MOUTH ONCE * X KETOCONAZOLE 2 % TOPICAL CREAM Apply 1 application to affect* Patient not taking: Reported on 09/01/2017 LIDOCAINE 2 % MUCOSAL JELLY Apply 1 application to affect* X COMPOUNDED PRESCRIPTION Miralax 238gm bottle and (2) * Patient not taking: Reported on 09/01/2017 DIAZEPAM 5 MG TABLET Take 1 tablet by mouth once d* DEXAMETHASONE 1 MG TABLET Take 1 mg by mouth once daily* MAGNESIUM HYDROXIDE 400 MG/5 * Take 5 mL by mouth once daily* DOCUSATE SODIUM 100 MG CAPSULE Take 100 mg by mouth twice da* SIMETHICONE 125 MG CAPSULE Take 1 tablet by mouth three * HYDROCORTISONE ACETATE 25 MG * 1 Suppository by RECTAL route* TRANEXAMIC ACID 650 MG TABLET Take 2 tablets by mouth three* ONDANSETRON HCL 4 MG TABLET Take 4 mg by mouth every 8 ho* COMPOUNDED PRESCRIPTION Apply to affected area. Nife* ALBUTEROL 90 MCG/ACTUATION AE* Inhale 2 Puffs as instructed * * CETIRIZINE 10 MG TABLET Take 1 tablet by mouth once d* * MULTI-VITAMIN ORAL Take by mouth once daily. 2 * Problem List As Of Date 09/22/2017 Noted Resolved PAIN IN JOINT, LOWER LEG [M25.569] INVALID FOR*01/24/2008 ASTHMA UNSPECIFIED [J45.909] INVALID FOR* Priority: Mild CHRONIC RHINITIS [J31.0] INVALID FOR* DYSMETABOLIC SYNDROME X [E88.81] INVALID FOR* Priority: Moderate More... 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 IMPAIRED FASTING GLUCOSE [R73.01] INVALID FOR* Priority: Mild ABN GLUCOSE-ANTEPARTUM [O99.810] 08/01/2008 More... THROMBOS HEMORRHOIDS NOS [K64.5] INVALID FOR* Priority: Mild More... Routine general medical examination at a health*INVALID FOR*11/21/2011 Priority: Mild Class: Chronic More... ROUTINE MELT HELPER EXAMINATION [Z01.419] INVALID FOR*08/15/2008 Class: Chronic More... HX OF CERVICAL DYSPLASIA [Z87.410] INVALID FOR* More... ANXIETY STATE NOS [F41.1] INVALID FOR* Priority: Moderate More... PREV DELIVERY NOS-ANTEPART [O34.219] INVALID FOR* POOR GRTH-ANTEPART [O36.5990] INVALID FOR*09/26/2008 Routine gynecological examination [Z01.419] INVALID FOR*11/21/2011 Class: Chronic More... HIDRADENITIS [L73.2] INVALID FOR* Priority: Moderate More... 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 Pyoderma, unspecified [L08.0] INVALID FOR*05/21/2016 Pain in joint, lower leg [M25.569] INVALID FOR* Headache [R51] INVALID FOR* Lumbago [M54.5] INVALID FOR* Spasm of muscle [M62.838] INVALID FOR* Adrenal insufficiency [E27.40] Muscle spasm [M62.838] INVALID FOR* Calculus of kidney [N20.0] INVALID FOR* Lyme disease [A69.20] INVALID FOR* Seborrheic Dermatitis [L21.8] INVALID FOR* Xerosis cutis [L85.3] INVALID FOR*05/21/2016 Calculus of ureter [N20.1] INVALID FOR* Pyoderma [L08.0] INVALID FOR*05/21/2016 Pruritus [L29.9] INVALID FOR*05/21/2016 Monilial vulvovaginitis [B37.3] INVALID FOR* Migraine without aura, with intractable migrain*INVALID FOR* Microhematuria [R31.29] INVALID FOR* Flank pain [R10.9] INVALID FOR* Female stress incontinence [N39.3] INVALID FOR* Menstrual irregularity [N92.6] INVALID FOR* Palpitations [R00.2] INVALID FOR* Backache, unspecified [M54.9] INVALID FOR* Anorectal polyp [K62.0, K62.1] INVALID FOR* Low back pain [M54.5] INVALID FOR* Buttock pain [M79.1] INVALID FOR* Lumbosacral neuritis [M54.17] INVALID FOR* Gross hematuria [R31.0] INVALID FOR* History of kidney stones [Z87.442] INVALID FOR* Straining on urination [R39.16] INVALID FOR* Hesitancy [R39.11] INVALID FOR* Difficulty voiding [R39.198] INVALID FOR* Chronic pelvic pain in female [R10.2, G89.29] INVALID FOR* Endometriosis [N80.9] INVALID FOR* Encounter Status:Closed by SYDNI YANG RN on 12/15/17 MSC Observed: 09/17/2017 Status: UNK Source: [facility] 4:34 PM [facility] [place] REPOSITORY DATE OF SERVICE: 09/17/2017 REASON FOR VISIT: Left buttock mass. HISTORY OF PRESENT ILLNESS: This is a 32-year-old female who has been having pain and swelling and a mass in the left buttock area for the last 2 months. She already has seen her family doctor who did a CAT scan and an x-ray but did not show anything specific. He also did a needle aspiration which shows some blood. He is the process of referring her to the specialist but so far has not seen any specialist. She came to [facility] for a new opinion. No other acute problem at this visit. REVIEW OF SYSTEMS: Review of other systems normal. PAST MEDICAL, FAMILY HISTORY, SOCIAL HISTORY: Reviewed. ALLERGIES: KEFLEX, DOXYCYCLINE, AND LATEX. MEDICATION LIST: Reviewed. PHYSICAL EXAMINATION: General: She is awake, alert, not in distress, no dyspnea. Vital signs: Temperature 99.5, blood pressure 118/72, pulse 80, respirations 16, pulse oximetry 98% on room air. Pain score 5/10. Skin: Examination of the left thigh and buttock revealed there is a soft tissue mass not very well defined on the left buttock area, more toward ____ anterolateral aspect, about 5 to 6 cm in diameter. It is soft. No obvious fluctuation and has tiny ecchymosis which patient states is from the needle aspiration. The rest of the skin overlying the mass looks normal. There is slight discomfort on pressure. Skin temperature is normal. The rest of the exam is normal. ASSESSMENT: Left buttock mass. PLAN: Clinical findings were discussed with the patient in detail. I explained to her that I agree that this needs to be evaluated by a specialist, either surgeon or orthopedic surgeon. I want her to discuss with her family doctor for referral and then discuss with a specialist for further evaluation and care of this mass. No specific treatment needed from [facility] right now. After discussion and explanation, the patient understands and agrees. Her questions were answered to her satisfaction. Laquita Bedolla MD [id number] [facility] File#: [id number] [facility] PATIENT NAME: KAYA ARCE Doreen Mcdermott MEDICAL REC #: [id number] [place] [address] [facility] REPORT [facility] Disclaimer - This document may contain phonetic, minor grammatical errors, or errors due to voice quality. Verified/Reviewed by 11/22/17 0836 [place] [facility] PATIENT NAME: KAYA ARCE Doreen Mcdermott MEDICAL REC #: [id number] [place] [address] [facility] RE[facility] ERYTHROCYTE SED RATE Collected: 09/07/2017 Status: F Source: [place] 11:14 AM [facility] REPOSITORY TYPE CODE TESTS RESULT OUT OF RANGE REFERENCE UNITS LAB L102.0000 0-20 mm/hr Normal SED RATE 12 Performed By: #### L101.9900, L100.0100 #### [facility] [address] [place], [address] CBC W/DIFF, AUTOMATED Collected: 09/07/2017 Status: F Source: [place] 11:14 AM [facility] REPOSITORY TYPE CODE TESTS RESULT OUT OF RANGE REFERENCE UNITS LAB L100.1000 4.4-11.0 K/mm3 High WBC 18.6 LAB L100.1200 4.2-5.4 M/mm3 Normal RBC 4.92 LAB L100.1300 12.0-15.0 g/dl Normal HGB 13.5 LAB L100.1400 37-47 % Normal HCT 42.2 LAB L100.1500 81-99 fL Normal MCV 85.8 LAB L100.1600 27.0-32.0 pg Normal MCH 27.4 LAB L100.1700 32-36 g/gl Normal MCHC 32.0 LAB L100.1810 11.6-14.6 % Normal RDW CV 13.9 LAB L100.1820 35.1-43.9 fl Normal RDW SD 43.4 LAB L100.1900 150-450 K/mm3 Normal PLT 367 LAB L100.2000 6.2-12.0 fl Normal MPV 8.8 LAB L100.2100 47-70 % Low NEUT% 43.6 LAB L100.2200 19-41 % High LY% 49.4 LAB L100.2300 0-10 % Normal MONO% 5.9 LAB L100.2400 0-5 % Normal EO% 0.6 LAB L100.2500 0-1 % Normal BASO% 0.1 LAB L100.2550 0.0-0.9 % Normal IM GRAN % 0.400 Result Comment: IG% - Immature Granulocytes (promyelocytes, myelocytes and metamyelocytes) > 1% indicates that a LEFT SHIFT is Present. LAB L100.2620 2.0-7.7 X10 3/uL High Absolute Neut 8.1 LAB L100.2720 0.83-4.51 X10 3/ul High Absolute Lymph 9.18 LAB L100.4500 Normal SMEAR COMMENT SCANNED Result Comment: ELEVATED LYMPHOCYTES NOTED LAB L100.4700 Normal REACTIVE LYMPH 1+ Performed By: #### L101.9900, L100.0100 #### [facility] [address] [place], [address] CRP Collected: 09/07/2017 Status: F Source: [place] 11:14 AM [facility] REPOSITORY TYPE CODE TESTS RESULT OUT OF RANGE REFERENCE UNITS LAB L501.6710 0.0-3.0 mg/L Normal < 2.90 C-REACTIVE PROT Result Comment: C-Reactive Protein (CRP) provides useful information for the diagnosis, therapy and monitoring of inflammatory processes and associated diseases. For the evaluation of Relative Risk for Cardiovascular Disease, a High Sensitivity CRP (HSCRP) should be ordered. Performed By: #### L501.6710 #### [facility] [address] [place], [address] CONSULT PROG Observed: 09/01/2017 Status: COMPLETED Source: [place] 12:52 PM [facility] REPOSITORY HNO ID: [id number] Author: Chance Avina Service: (none) Author Type: Physician Type: Consult Progress Note Filed: 09/01/2017 12:55 PM Note Text: [facility] Date: 09/01/2017 Consultation Requested By: FOLLOW UP HISTORY OF PRESENT ILLNESS: Kaya Arce is a 32 year old year old female with INTERVAL HX September 01, 2017: Here to follow up on complex right ovarian cyst seen on outside US. She reports excruciating tearing pain on that side. Has been taking cyclic provera. Could not tolerate NE due to bowel effects. Having some possible bursitis left hip. Gilberto US today from OSH. 3cm complex right ov cyst, possible hem cyst vs endometrioma. PRIOR VISIT NOTE Pt is here for Endometriosis. Pt says she was diagnosis with Endometriosis about 2 years ago and have PCOS since age 14 years old. Pt has been on control for a very long time and recently got off control in . Pt says since she has been off control, she has gain 35 lbs and having heavy, clotting periods. Pt say she has irregular periods every 30-35 days for 7-10 days. Pt has pain and pressure in lower midsection of abdomen. Pt says she is interested in discussing about robotic surgery and she has lots of scar tissue. Obstetric History T1 L1 SAB0 TAB0 Ectopic0 Multiple0 Live Births1 Fertility Evaluations and Treatments: Eval Checklist Results Date Comments HSG Hysteroscopy Laparoscopy OPK (Ovulation Predictor Kit) Ovarian [place] Saline Ultrasound Semen Analysis Ultrasound Other (See comments) MENSTRUAL HISTORY: Menarche Age: 9 years old Length of Cycle: q 30-32 days Irregular Days: 7 days Menstrual Flow: Heavy Menstrual Symptoms: Breast Tenderness, Mood Changes, Bloating, Cramping No LMP recorded. Patient is not currently having periods (Reason: Drug Induced Amenorrhea). PAST MEDICAL HISTORY Diagnosis Date - Abnormal glandular Papanicolaou smear of cervix Abn. Pap smear (cervix) - Abnormal maternal glucose tolerance, antepartum 2003 diet controlled - Allergic rhinitis, cause unspecified Allergic rhinitis - Anal fissure - Ankylosis spondylitis - Back pain - Calculus of kidney 2007 4 stones, followed by Dr. long - Crohn's disease (HCC) - Daytime somnolence - Diaphragmatic hernia without mention of obstruction or gangrene - Endometriosis - Esophageal reflux - Fibromyalgia - Flatulence, eructation, and gas pain - gestational diabetes - Hemorrhage of rectum and anus - Hemorrhoids - Hirsutism - Hypokalemia - Irregular menses - Kidney stones - Lyme disease - PCOS (polycystic ovarian syndrome) - PMH - PAST MEDICAL HISTORY OF L4-L5 conjoined nerves affecting R leg-sees [facility] - Unspecified asthma(493.90) PAST SURGICAL HISTORY Procedure Laterality Date - CERVIX UTERI CONIZA LP ELCTRO EXCI 2001 LEEP-Cervix - DELIVERY ONLY 2003 , low cervical - COLONOSCOP W/ OR W/O [facility] SPEC 1986 Colonoscopy - COLONOSCOP W/ OR W/O [facility] SPEC 06/20/2014 Colonoscopy - ESWL X1 - F SALPINGO-OOPHORECTOMY 08/21/14 LEFT only - PAST SURGICAL HISTORY OF WISDOM TEETH - PAST SURGICAL HISTORY OF < 1 yr old bilat inguinal hernia repair - SIGMOIDOSCOPY FLEX DIAG Sigmoidoscopy, flexible FAMILY HISTORY Problem Relation Age of Onset - Prostate Cancer Maternal Grandfather - Cancer Maternal Grandfather leukemia - parkinsons [OTHER] Maternal Grandfather - Coronary Artery Disease Paternal Grandfather 48 suddenly - Diabetes Paternal Grandmother - Lipids Mother - Osteoporosis Mother - Lipids Father - Hypertension Father - kidney stones [OTHER] Father - CHF [OTHER] Father - spastic 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 [OTHER] Son - Breast Cancer Maternal Grandmother age 90 - down syndrome [OTHER] Paternal Uncle MEDICATIONS: Current Outpatient Prescriptions on File Prior to Visit: potassium chloride (KLOR-CON 10) 10 mEq tablet Take 2 tablets by mouth once daily. HYDROCORTISONE TOPICAL Apply to affected area. omeprazole (PRILOSEC) 20 mg capsule TAKE 1 CAPSULE BY MOUTH ONCE DAILY. lidocaine (XYLOCAINE) 2 % jelly Apply 1 application to affected area as directed. diazePAM (VALIUM) 5 mg tablet Take 1 tablet by mouth once daily as needed. magnesium hydroxide (MILK OF MAGNESIA) 400 mg/5 mL suspension Take 5 mL by mouth once daily as needed. atenolol (TENORMIN) 25 mg tablet Take 1 tablet by mouth once daily. docusate sodium (COLACE) 100 mg capsule Take 100 mg by mouth twice daily as needed. Simethicone (GAS FREE EXTRA STRENGTH) 125 mg cap Take 1 tablet by mouth three times daily as needed. hydrocortisone (HEMORRHOIDAL HC) 25 mg suppository 1 Suppository by RECTAL route twice daily as needed. Insert one (1) in the rectum each night before bed. Tranexamic Acid 650 mg tab Take 2 tablets by mouth three times daily as needed (until bleeding slows or stops for up to 5 days). ondansetron (ZOFRAN, HYDROCHLORIDE,) 4 mg tablet Take 4 mg by mouth every 8 hours as needed. COMPOUNDED PRESCRIPTION Apply to affected area. Nifedipine 0.3% apply to anal area twice daily. albuterol 90 mcg/actuation Aero Inhale 2 Puffs as instructed every 4 hours as needed (shortness of breath). cetirizine 10 mg tablet Take 1 tablet by mouth once daily. MULTI-VITAMIN ORAL Take by mouth once daily. 2 tablets daily dapsone 25 mg tablet Take 2 tablets by mouth once daily. Two (2) X 25 mg tablets = 50 mg (Patient not taking: Reported on 09/01/2017 ) ketoconazole (NIZORAL) 2 % cream Apply 1 application to affected area once daily as needed. (Patient not taking: Reported on 09/01/2017 ) MIRALAX / GATORADE PREP Miralax 238gm bottle and (2) 32oz bottles of Gatorade, AND 4 Dulcolax 5mg tabs - as directed per instructions (Patient not taking: Reported on 09/01/2017 ) dexamethasone (DECADRON) 1 mg tablet Take 1 mg by mouth once daily as needed. No current facility-administered medications on file prior to visit. ALLERGIES: Bees; Doxycycline; Eucalyptus; Flexeril [Cyclobenzaprine]; Keflex [Cephalexin]; Latex; Minocycline; Nitroglycerin Suppositories [Other]; Nsaids (Non-Steroidal Anti-Inflammatory Drug); Tizanidine; Vicodin [Hydrocodone-Acetaminophen] [facility] PAP Results: Normal Date: 04-19-14 HPV Results: Negative Date: 2011 Blood Type: O POS Rubella Antibody, IgG 4.58 08/07/2008 ASSESSMENT: 32yo p1 with right ov cyst poss 3cm endometrioma and pain exacerbation, s/p LSO PLAN: Reviewed multiple medical options- will get US to confirm persistence of cyst and then do scope excision and Mirena IUD insertion Multiple questions answered with pt and mom Will place order- may want to wait a bit for social situation and bursitis issue. Offered VV as they are far away for follow up I spent 25 minutes in the visit, with more than 50% of the total mypw-ua-obus time of the visit in counseling / coordination of care. Chance Avina MD CNOV Observed: 09/01/2017 Status: COMPLETED Source: [place] 11:30 AM [facility] REPOSITORY Office Visit (REIBD) KAYA ARCE ([id number]) 1985 F Date Time Provider Department 09/01/17 11:30 AM CHANCE AVINA RECASPER During your visit today, we recorded the following information about you: Blood pressure 100/78 Chance Avina MD 09/01/2017 12:55 PM Signed [facility] Date: 09/01/2017 Consultation Requested By: FOLLOW UP HISTORY OF PRESENT ILLNESS: Kaya Alexandro Claude is a 32 year old year old female with INTERVAL HX September 01, 2017: Here to follow up on complex right ovarian cyst seen on outside US. She reports excruciating tearing pain on that side. Has been taking cyclic provera. Could not tolerate NE due to bowel effects. Having some possible bursitis left hip. Gilberto US today from OSH. 3cm complex right ov cyst, possible hem cyst vs endometrioma. PRIOR VISIT NOTE Pt is here for Endometriosis. Pt says she was diagnosis with Endometriosis about 2 years ago and have PCOS since age 14 years old. Pt has been on control for a very long time and recently got off control in . Pt says since she has been off control, she has gain 35 lbs and having heavy, clotting periods. Pt say she has irregular periods every 30-35 days for 7-10 days. Pt has pain and pressure in lower midsection of abdomen. Pt says she is interested in discussing about robotic surgery and she has lots of scar tissue. Obstetric History T1 L1 SAB0 TAB0 Ectopic0 Multiple0 Live Births1 Fertility Evaluations and Treatments: Eval Checklist Results Date Comments HSG Hysteroscopy Laparoscopy OPK (Ovulation Predictor Kit) Ovarian [place] Saline Ultrasound Semen Analysis Ultrasound Other (See comments) MENSTRUAL HISTORY: Menarche Age: 9 years old Length of Cycle: q 30-32 days Irregular Days: 7 days Menstrual Flow: Heavy Menstrual Symptoms: Breast Tenderness, Mood Changes, Bloating, Cramping No LMP recorded. Patient is not currently having periods (Reason: Drug Induced Amenorrhea). PAST MEDICAL HISTORY Diagnosis Date - Abnormal glandular Papanicolaou smear of cervix Abn. Pap smear (cervix) - Abnormal maternal glucose tolerance, antepartum 2003 diet controlled - Allergic rhinitis, cause unspecified Allergic rhinitis - Anal fissure - Ankylosis spondylitis - Back pain - Calculus of kidney 2007 4 stones, followed by Dr. long - Crohn's disease (HCC) - Daytime somnolence - Diaphragmatic hernia without mention of obstruction or gangrene - Endometriosis - Esophageal reflux - Fibromyalgia - Flatulence, eructation, and gas pain - gestational diabetes - Hemorrhage of rectum and anus - Hemorrhoids - Hirsutism - Hypokalemia - Irregular menses - Kidney stones - Lyme disease - PCOS (polycystic ovarian syndrome) - PMH - PAST MEDICAL HISTORY OF L4-L5 conjoined nerves affecting R leg-sees [facility] - Unspecified asthma(493.90) PAST SURGICAL HISTORY Procedure Laterality Date - CERVIX UTERI CONIZA LP ELCTRO EXCI 2001 LEEP-Cervix - DELIVERY ONLY 2003 , low cervical - COLONOSCOP W/ OR W/O [facility] SPEC 1986 Colonoscopy - COLONOSCOP W/ OR W/O [facility] SPEC 06/20/2014 Colonoscopy - ESWL X1 - F SALPINGO-OOPHORECTOMY 08/21/14 LEFT only - PAST SURGICAL HISTORY OF WISDOM TEETH - PAST SURGICAL HISTORY OF < 1 yr old bilat inguinal hernia repair - SIGMOIDOSCOPY FLEX DIAG Sigmoidoscopy, flexible FAMILY HISTORY Problem Relation Age of Onset - Prostate Cancer Maternal Grandfather - Cancer Maternal Grandfather leukemia - parkinsons [OTHER] Maternal Grandfather - Coronary Artery Disease Paternal Grandfather 48 suddenly - Diabetes Paternal Grandmother - Lipids Mother - Osteoporosis Mother - Lipids Father - Hypertension Father - kidney stones [OTHER] Father - CHF [OTHER] Father - spastic 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 [OTHER] Son - Breast Cancer Maternal Grandmother age 90 - down syndrome [OTHER] Paternal Uncle MEDICATIONS: Current Outpatient Prescriptions on File Prior to Visit: potassium chloride (KLOR-CON 10) 10 mEq tablet Take 2 tablets by mouth once daily. HYDROCORTISONE TOPICAL Apply to affected area. omeprazole (PRILOSEC) 20 mg capsule TAKE 1 CAPSULE BY MOUTH ONCE DAILY. lidocaine (XYLOCAINE) 2 % jelly Apply 1 application to affected area as directed. diazePAM (VALIUM) 5 mg tablet Take 1 tablet by mouth once daily as needed. magnesium hydroxide (MILK OF MAGNESIA) 400 mg/5 mL suspension Take 5 mL by mouth once daily as needed. atenolol (TENORMIN) 25 mg tablet Take 1 tablet by mouth once daily. docusate sodium (COLACE) 100 mg capsule Take 100 mg by mouth twice daily as needed. Simethicone (GAS FREE EXTRA STRENGTH) 125 mg cap Take 1 tablet by mouth three times daily as needed. hydrocortisone (HEMORRHOIDAL HC) 25 mg suppository 1 Suppository by RECTAL route twice daily as needed. Insert one (1) in the rectum each night before bed. Tranexamic Acid 650 mg tab Take 2 tablets by mouth three times daily as needed (until bleeding slows or stops for up to 5 days). ondansetron (ZOFRAN, HYDROCHLORIDE,) 4 mg tablet Take 4 mg by mouth every 8 hours as needed. COMPOUNDED PRESCRIPTION Apply to affected area. Nifedipine 0.3% apply to anal area twice daily. albuterol 90 mcg/actuation Aero Inhale 2 Puffs as instructed every 4 hours as needed (shortness of breath). cetirizine 10 mg tablet Take 1 tablet by mouth once daily. MULTI-VITAMIN ORAL Take by mouth once daily. 2 tablets daily dapsone 25 mg tablet Take 2 tablets by mouth once daily. Two (2) X 25 mg tablets = 50 mg (Patient not taking: Reported on 09/01/2017 ) ketoconazole (NIZORAL) 2 % cream Apply 1 application to affected area once daily as needed. (Patient not taking: Reported on 09/01/2017 ) MIRALAX / GATORADE PREP Miralax 238gm bottle and (2) 32oz bottles of Gatorade, AND 4 Dulcolax 5mg tabs - as directed per instructions (Patient not taking: Reported on 09/01/2017 ) dexamethasone (DECADRON) 1 mg tablet Take 1 mg by mouth once daily as needed. No current facility-administered medications on file prior to visit. ALLERGIES: Bees; Doxycycline; Eucalyptus; Flexeril [Cyclobenzaprine]; Keflex [Cephalexin]; Latex; Minocycline; Nitroglycerin Suppositories [Other]; Nsaids (Non-Steroidal Anti-Inflammatory Drug); Tizanidine; Vicodin [Hydrocodone-Acetaminophen] [facility] PAP Results: Normal Date: 04-19-14 HPV Results: Negative Date: 2011 Blood Type: O POS Rubella Antibody, IgG 4.58 08/07/2008 ASSESSMENT: 32yo p1 with right ov cyst poss 3cm endometrioma and pain exacerbation, s/p LSO PLAN: Reviewed multiple medical options- will get US to confirm persistence of cyst and then do scope excision and Mirena IUD insertion Multiple questions answered with pt and mom Will place order- may want to wait a bit for social situation and bursitis issue. Offered VV as they are far away for follow up I spent 25 minutes in the visit, with more than 50% of the total agzn-mx-tvvs time of the visit in counseling / coordination of care. Chance Avina MD Referring Provider: CHANCE AVINA [[id number]] Allergies As of Date: 09/01/2017 Noted Allergy Reaction BEES 06/18/2010 4 - Hives 7 - Swelling DOXYCYCLINE 09/26/2008 8 - GI Upset Comments: Not able to tolerate due to GI effects EUCALYPTUS 06/07/2007 Comments: tachycardia close airway FLEXERIL (CYCLOBENZAPRINE) 04/28/2012 1 - Mental Status Change Comments: Made patient feel worse than before KEFLEX (CEPHALEXIN) 05/09/2002 4 - Hives 10 - Anaphylaxis LATEX 08/15/2008 7 - Swelling MINOCYCLINE 03/07/2008 8 - GI Upset nitroglycerin suppositories [Othe*01/31/2008 NSAIDS (NON-STEROIDAL ANTI-INFLAM*2015 5 - Intolerance TIZANIDINE 12/04/2010 1 - Mental Status Change Comments: Low HR, cold and clammy (subjective only) VICODIN (HYDROCODONE-ACETAMINOPHE*03/31/2010 9 - Itching Date Reviewed: 09/01/2017 Reviewed by: Ofelia Ceja LPN - Fully Assessed Reason for Visit: follow up endometriosis [Other] Cmt: complaint of stabbing feeling in abdomen. Primary Visit Diagnosis:Ovarian cyst, right [N83.201] Order(s):PELVIC US WHI [[id number]] Order #: [id number]: [id number] SURGICAL REQUEST - ELECTIVE [[id number]] Order #: [id number]: 1 Prescriptions as of 09/01/2017 Sig: PREDNISONE ORAL Take 50 mg by mouth once sienna* DICLOFENAC POTASSIUM 50 MG TA* Take 50 mg by mouth three florentin* MEDROXYPROGESTERONE 10 MG TAB* Take 10 mg by mouth once sienna* POTASSIUM CHLORIDE ER 10 MEQ * Take 2 tablets by mouth once * HYDROCORTISONE TOPICAL Apply to affected area. OMEPRAZOLE 20 MG CAPSULE,JACQUE* TAKE 1 CAPSULE BY MOUTH ONCE * LIDOCAINE 2 % MUCOSAL JELLY Apply 1 application to affect* DIAZEPAM 5 MG TABLET Take 1 tablet by mouth once d* MAGNESIUM HYDROXIDE 400 MG/5 * Take 5 mL by mouth once daily* ATENOLOL 25 MG TABLET Take 1 tablet by mouth once d* DOCUSATE SODIUM 100 MG CAPSULE Take 100 mg by mouth twice da* SIMETHICONE 125 MG CAPSULE Take 1 tablet by mouth three * HYDROCORTISONE ACETATE 25 MG * 1 Suppository by RECTAL route* TRANEXAMIC ACID 650 MG TABLET Take 2 tablets by mouth three* ONDANSETRON HCL 4 MG TABLET Take 4 mg by mouth every 8 ho* COMPOUNDED PRESCRIPTION Apply to affected area. Nife* ALBUTEROL 90 MCG/ACTUATION AE* Inhale 2 Puffs as instructed * * CETIRIZINE 10 MG TABLET Take 1 tablet by mouth once d* * MULTI-VITAMIN ORAL Take by mouth once daily. 2 * DAPSONE 25 MG TABLET Take 2 tablets by mouth once * Patient not taking: Reported on 09/01/2017 KETOCONAZOLE 2 % TOPICAL CREAM Apply 1 application to affect* Patient not taking: Reported on 09/01/2017 COMPOUNDED PRESCRIPTION Miralax 238gm bottle and (2) * Patient not taking: Reported on 09/01/2017 DEXAMETHASONE 1 MG TABLET Take 1 mg by mouth once daily* Medication notes this encounter DIAZEPAM 5 MG TABLET >> Ofelia Ceja LPN 09/01/2017 11:41 AM >> OFELIA CEJA LPN WedSep 01, 2017 11:41 AM as needed MAGNESIUM HYDROXIDE 400 MG/5 ML ORAL SUSPENSION >> Ofelia Ceja LPN 09/01/2017 11:40 AM >> OFELIA CEJA LPN WedSep 01, 2017 11:40 AM as needed ALBUTEROL 90 MCG/ACTUATION AEROSOL INHALER >> Ofelia Ceja LPN 09/01/2017 11:42 AM >> OFELIA CEJA LPN WedSep 01, 2017 11:42 AM as needed COMPOUNDED PRESCRIPTION >> Ofelia Ceja LPN 09/01/2017 11:39 AM >> OFELIA CEJA LPN WedSep 01, 2017 11:39 AM completed DEXAMETHASONE 1 MG TABLET >> Ofelia Ceja LPN 09/01/2017 11:41 AM >> OFELIA CEJA LPN WedSep 01, 2017 11:41 AM now on prednisone Problem List As Of Date 09/01/2017 Noted Resolved PAIN IN JOINT, LOWER LEG [M25.569] INVALID FOR*01/24/2008 ASTHMA UNSPECIFIED [J45.909] INVALID FOR* Priority: Mild CHRONIC RHINITIS [J31.0] INVALID FOR* DYSMETABOLIC SYNDROME X [E88.81] INVALID FOR* Priority: Moderate More... 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 IMPAIRED FASTING GLUCOSE [R73.01] INVALID FOR* Priority: Mild ABN GLUCOSE-ANTEPARTUM [O99.810] 08/01/2008 More... THROMBOS HEMORRHOIDS NOS [K64.5] INVALID FOR* Priority: Mild More... Routine general medical examination at a health*INVALID FOR*11/21/2011 Priority: Mild Class: Chronic More... ROUTINE MELT HELPER EXAMINATION [Z01.419] INVALID FOR*08/15/2008 Class: Chronic More... HX OF CERVICAL DYSPLASIA [Z87.410] INVALID FOR* More... ANXIETY STATE NOS [F41.1] INVALID FOR* Priority: Moderate More... PREV DELIVERY NOS-ANTEPART [O34.219] INVALID FOR* POOR GRTH-ANTEPART [O36.5990] INVALID FOR*09/26/2008 Routine gynecological examination [Z01.419] INVALID FOR*11/21/2011 Class: Chronic More... HIDRADENITIS [L73.2] INVALID FOR* Priority: Moderate More... 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 Pyoderma, unspecified [L08.0] INVALID FOR*05/21/2016 Pain in joint, lower leg [M25.569] INVALID FOR* Headache [R51] INVALID FOR* Lumbago [M54.5] INVALID FOR* Spasm of muscle [M62.838] INVALID FOR* Adrenal insufficiency [E27.40] Muscle spasm [M62.838] INVALID FOR* Calculus of kidney [N20.0] INVALID FOR* Lyme disease [A69.20] INVALID FOR* Seborrheic Dermatitis [L21.8] INVALID FOR* Xerosis cutis [L85.3] INVALID FOR*05/21/2016 Calculus of ureter [N20.1] INVALID FOR* Pyoderma [L08.0] INVALID FOR*05/21/2016 Pruritus [L29.9] INVALID FOR*05/21/2016 Monilial vulvovaginitis [B37.3] INVALID FOR* Migraine without aura, with intractable migrain*INVALID FOR* Microhematuria [R31.29] INVALID FOR* Flank pain [R10.9] INVALID FOR* Female stress incontinence [N39.3] INVALID FOR* Menstrual irregularity [N92.6] INVALID FOR* Palpitations [R00.2] INVALID FOR* Backache, unspecified [M54.9] INVALID FOR* Anorectal polyp [K62.0, K62.1] INVALID FOR* Low back pain [M54.5] INVALID FOR* Buttock pain [M79.1] INVALID FOR* Lumbosacral neuritis [M54.17] INVALID FOR* Gross hematuria [R31.0] INVALID FOR* History of kidney stones [Z87.442] INVALID FOR* Straining on urination [R39.16] INVALID FOR* Hesitancy [R39.11] INVALID FOR* Difficulty voiding [R39.198] INVALID FOR* Chronic pelvic pain in female [R10.2, G89.29] INVALID FOR* Endometriosis [N80.9] INVALID FOR* Encounter Status:Closed by CHANCE AVINA MD on 09/01/17 EMERGENCY DEPARTMENT Observed: 08/27/2017 Status: F Source: [place] SUMMARY 10:53 PM [facility] REPOSITORY [facility] Medical Records Department [address] [place] [address] Emergency Department Summary 08/27/17 1906 MR#: [id number] Acct: [id number] Name: KAYA ARCE Rep #: [id number] : 1985 32 From: Ceci Rivera MD PCP: Rudy Curran DO Status: DEP ER - ER Visit Summary Date of Service: 08/27/17 Chief Complaint: Left hip pain History of Present Illness: The patient is a 32 F with left hip pain for the last 3-4 weeks. Patient states she developed an area of swelling on the lateral portion of her left hip. It initially started out as the size of a $0.50 piece. It has grown in size in the past 3 weeks and become more painful. There are no overlying skin changes. She saw her financial adviser who had ordered an MRI. She had that performed earlier this week but got a phone call today that they scanned over the thigh but did not cover the area of interest. Patient was seen by her PCP yesterday and started on anti-inflammatories for possible bursitis. She is noted very minimal improvement with this. She was told that is still painful to go to the emergency room. Patient denies any injury to the area. She has had no fever or chills. Past history significant for reflux disease, PCOS, ankylosing spondylitis, and asthma. Physical Examination: Vital signs are unremarkable. Patient's lying supine. She is in no acute distress. Heart is regular rate and rhythm. Lung sounds are clear. Abdomen is soft nontender. Lower external examination was a 9 x 7 cm area of edema and tenderness over the lateral portion of the left hip. There is no overlying skin change. She is full range of motion of the extremity without difficulty. She has strong distal pulses. Test Results: CBC is significant only for mild anemia with a hemoglobin 11.7. Chemistry studies normal. test negative. CT of the left lower extremity was obtained with IV contrast. They report normal osseous structures. I see no evidence of abscess. Emergency Department Course and Treatment: Test results were discussed with the patient. I believe this is likely bursitis. Patient will continue her anti-inflammatory and we will add a prednisone taper. Treatment Plan: [] Disposition: Discharge Impression: Left hip swelling, suspect bursitis This note was generated with [employer] dictation software. It may contain incorrect words, spelling, and punctuation that were not noted in review of the chart prior to signing ED Disposition - Plan for ED Patient: Chief Complaint: Lower Extremity Injury Referrals: Rudy Curran, DO [Primary Care Provider] - What to do if you have Problems For any increased pain, shortness of breath, bleeding, nausea or vomiting, chest pain, or any unexpected problems, contact your Primary Care Provider. Call [facility] ([phone]) or report to the closest Emergency Room. Call 911 if necessary. 08/27/17 8245 <Electronically signed by Ceci Rivera MD> Date Ceci Rivera MD Cosigner Signature (If Indicated): Date CC: Rudy Curran DO DISCHARGE INSTRUCTION Observed: 08/27/2017 Status: F Source: [place] 8:04 PM [facility] REPOSITORY [facility] Medical Records Department [address] [place] [address] Discharge Instruction 08/27/172002 MR#: [id number] Acct: [id number] Name: KAYA ARCE Rep #: [id number] : 1985 32 From: Ceci Rivera MD PCP: Rudy Curran DO Status: REG ER ED Disposition - Plan for ED Patient: Disposition: Home or Assisted Living Chief Complaint: Lower Extremity Injury Instructions: ED Bursitis Prescriptions: Prednisone 10 mg PO DAILY #63 tablet Referrals: Rudy Curran DO [Primary Care Provider] - 1 Week if not improving What to do if you have Problems For any increased pain, shortness of breath, bleeding, nausea or vomiting, chest pain, or any unexpected problems, contact your Primary Care Provider. Call [facility] ([phone]) or report to the closest Emergency Room. Call 911 if necessary. 08/27/172003 <Electronically signed by Ceci Rivera MD> Date Ceci Oh Signature (If Indicated): Date CC: Rudy Curran DO CBC W/DIFF, AUTOMATED Collected: 08/27/2017 Status: F Source: [place] 6:34 PM [facility] REPOSITORY TYPE CODE TESTS RESULT OUT OF RANGE REFERENCE UNITS LAB L100.1000 4.4-11.0 K/mm3 Normal WBC 8.9 LAB L100.1200 4.2-5.4 M/mm3 Normal RBC 4.27 LAB L100.1300 12.0-15.0 g/dl Low HGB 11.7 LAB L100.1400 37-47 % Low HCT 36.0 LAB L100.1500 81-99 fL Normal MCV 84.3 LAB L100.1600 27.0-32.0 pg Normal MCH 27.4 LAB L100.1700 32-36 g/gl Normal MCHC 32.5 LAB L100.1810 11.6-14.6 % Normal RDW CV 13.1 LAB L100.1820 35.1-43.9 fl Normal RDW SD 40.0 LAB L100.1900 150-450 K/mm3 Normal PLT 274 LAB L100.2000 6.2-12.0 fl Normal MPV 8.6 LAB L100.2100 47-70 % Normal NEUT% 48.3 LAB L100.2200 19-41 % High LY% 42.9 LAB L100.2300 0-10 % Normal MONO% 6.5 LAB L100.2400 0-5 % Normal EO% 2.0 LAB L100.2500 0-1 % Normal BASO% 0.2 LAB L100.2550 0.0-0.9 % Normal IM GRAN % 0.100 Result Comment: IG% - Immature Granulocytes (promyelocytes, myelocytes and metamyelocytes) > 1% indicates that a LEFT SHIFT is Present. LAB L100.2620 2.0-7.7 X10 3/uL Normal Absolute Neut 4.3 LAB L100.2720 0.83-4.51 X10 3/ul Normal Absolute Lymph 3.83 Performed By: #### L100.0100 #### [facility] [address] [place], [place], [address] BASIC METABOLIC Collected: 08/27/2017 Status: F Source: [place] PROFILE (BMP) 6:34 PM [facility] REPOSITORY TYPE CODE TESTS RESULT OUT OF RANGE REFERENCE UNITS LAB L501.0100 74-106 mg/dL Normal GLU 80 Result Comment: Please note revised GLUCOSE reference range effective 2017. LAB L501.1000 7-18 mg/dL Normal BUN 8 LAB L501.1100 0.55-1.02 mg/dL Normal CREAT,SERUM 0.71 Result Comment: The validity of the calculated GFR AND GFRAA in patients over 70 years has not been determined. Clinical correlation is essential. LAB L501.1110 >60 mL/min Normal EST GFR 100 Result Comment: Non- GFR Calc LAB L501.1115 >60 mL/min Normal EST GFR - AA 121 Result Comment: GFR Calc LAB L501.1255 ml/min Normal Estimated CRCL 92.36 LAB L501.1300 10-20 RATIO Normal BUN/CRE 11.2 LAB L501.2200 8.5-10 mg/dL Normal .1 CA 8.8 LAB L501.5300 136-14 mmol/L Normal 5 NA 141 LAB L501.5600 3.5-5. mmol/L Normal 1 K 3.5 LAB L501.5900 98-107 mmol/L Normal CL 107 LAB L501.6100 21.0-3 mmol/L Normal 2.0 CO2 27.0 LAB L501.6200 5-15 Normal GAP 7 Performed By: #### L500.2500 #### [facility] [facility]. [place], [place], [id number] ,SERUM,HCG QUALI. Collected: Status: F Source: [place] 08/27/2017 6:34 PM [facility] REPOSITORY TYPE CODE TESTS RESULT OUT OF REFERENCE UNITS RANGE LAB L700.6700 =>Qualitative mIU/mL Normal HCG Qual < 1 triggr LAB L700.7000 0-9 Nonpreg Negative Normal HCGSQUAL NEGATIVE Performed By: #### L700.6800 #### [facility] [address] [facility]. [place], [place], [address] EXTREMITY LOWER WITH Observed: 08/27/2017 Status: F Source: [place] CONTRAST 6:26 PM [facility] REPOSITORY [facility] Imaging Services [address] [place] [id number] Extremity Lower WITH Contrast MR#: [id number] Acct: [id number] Name: KAYA ARCE Rep #: [id number] : 1985 F 32 From: Rafael Santos MD PCP: Rudy Curran DO Status: REG ER Study: Extremity Lower WITH Contrast Date of Exam: 08/27/17 Exam# [id number] Ordering Dr: Ceci Rivera MD STUDY: CT RIGHT HIP/PELVIS REASON FOR EXAM: Female, 22 years old. Lateral left hip pain and swelling radiating into leg. RADIATION DOSAGE (If Supplied By Facility): CTDIvol = ( ) mGy, DLP = ( ) mGycm TECHNIQUE: Transaxial imaging of the left hips was performed without oral contrast, and without intravenous administration of contrast material. COMPARISON: Pelvic ultrasound July 02, 2017. FINDINGS: Normal visualized left femur. Normal left acetabulum. Normal hip joint without articular joint space narrowing. Normal bilateral superior and inferior pubic rami. Normal pubic symphysis. Normal bilateral ischia. There are cortical enthesophytes at the lateral right iliac wing. There are early degenerative changes of the bilateral sacroiliac joints, and mild joint space narrowing and periarticular ilial sclerosis. There is no demonstrated fracture or osseous destructive lesion of the visualized osseous pelvis. Normal urinary bladder. Normal visualized small intestine. Normal visualized colon. There is no pelvic fluid. There are multiple low-density areas in the right ovary, consistent with follicular cysts. One of the largest is approximately 2.2 x 1.75 x 1.85 cm. The left ovary is not well seen. Normal visualized uterus. Normal visualized pelvic and femoral arteries. There are a few benign, partially fatty replaced lymph nodes in the left inguinal tissues. CT/Extremity Lower WITH Contrast IMPRESSION: 1. Normal visualized osseous pelvis and left hip/femur. 2. Dominant 2.2 cm follicular cyst in the right ovary. The uterus is unremarkable. The left ovary is not visualized. 3. No demonstrated left pelvic or groin mass. Electronically Signed: Chivo Santos MD at 19:21 EDT , Service support , CC: Ceci Rivera MD; Rudy Curran DO Profiler Hand: Signed SR-EXTREMITY LOWER WITH Observed: 08/27/2017 Status: F Source: [place] CONTRAST IMPORT 12:00 AM [facility] REPOSITORY Images were obtained outside of [facility] [id number] MRI PELVIS W/O-W Observed: 08/25/2017 Status: F Source: [facility] CONTRAST 1:28 PM [facility] REPOSITORY Patient Name: KAYA ARCE STUDY: MRI of the pelvis without and with IV contrast; 08/25/2017 1:28 pm INDICATION: womean w tender mass on lt proximal thigh and sacroilitis. eval for active sacroilitis and erosive disease as well as soft tissue mass on lt proximal thigh. COMPARISON: Radiographs 08/18/2017 and 09/08/2016, MRI 09/18/2013 ACCESSION NUMBER(S): [id number] ORDERING CLINICIAN: ORA JIN TECHNIQUE: MR imaging of the musculoskeletal pelvis was obtained including sequences performed after the administration of 18 ml Multihance intravenous contrast. Sequences were performed for evaluation of the sacroiliac joints and the left proximal thigh. Skin markers were placed at the site of palpable abnormality at the left proximal thigh. FINDINGS: TENDONS: The insertions of the gluteus medius and gluteus minimus tendons are intact bilaterally. The insertions of the iliopsoas tendons are intact bilaterally. The adductor and hamstring tendon origins are intact bilaterally. JOINTS: There is no significant cartilage defect or arthrosis in the bilateral hips. There is no significant hip joint effusion. There is no evidence of avascular necrosis. There is symmetric bilateral sacroiliac joint sclerosis involving the iliac more than sacral side of the joints, similar to appearance on prior studies. There is no evidence of marrow edema, abnormal enhancement, joint effusion, sizable erosion, or ankylosis bilaterally. The pubic symphysis is unremarkable. The lower lumbar spine is grossly unremarkable. OSSEOUS STRUCTURES: No focal marrow replacing lesions are identified. There is no fracture. SOFT TISSUES: There is no evidence of mass, fluid collection, or other abnormality in the left thigh to correspond with the skin markers. No muscle atrophy or tear is seen. The sciatic nerves are intact and unremarkable. INTERNAL ORGANS: Evaluation of the internal organs of the pelvis is limited on this study tailored for evaluation of the musculoskeletal system. Physiologic findings are present in the right ovary and uterus. The left ovary is not confidently visualized. IMPRESSION: 1. No significant interval change in appearance of the bilateral sacroiliac joints since 2014 MRI. There is symmetric bilateral sacroiliac joint sclerosis, but no evidence of edema, enhancement, or effusion to suggest active sacroiliitis. 2. No mass, fluid collection, or other abnormality in the left thigh to correspond with palpable finding. I personally reviewed the images/study and I agree with the findings as stated. This study was interpreted at [facility], [place], [place]. Electronically signed by: LENI ZHU MD PROGRESS Observed: 08/25/2017 Status: COMPLETED Source: [place] 9:43 AM [facility] REPOSITORY HNO ID: [id number] Author: Eduard Dent Service: (none) Author Type: Physician Type: Progress Notes Filed: 08/25/2017 6:28 PM Note Text: [facility]YP[facility]ION [facility] SERVICE DATE: 08/25/2017 SERVICE TIME: 9AM CHIEF COMPLAINT: stones HPI: Ms. Arce is a 32 year old female who presents with abnormal kidney stones ? Duration (when): years ? Location (where): kidneys ? Severity (ex: creat 4.5, oliguric, BP 200/100): Cr normal ? Timing/Associated symptoms (ex: edema/SOB/continuous): intermittent stones PAST MEDICAL HISTORY: ACTIVE PROBLEM LIST Unspecified Asthma(493.90) Chronic Rhinitis Dysmetabolic Syndrome X IBS (IRRITABLE BOWEL SYNDROME) Anal Fissure Benign Neoplasm of Colon Esophageal Reflux Deviated Nasal Septum Polycystic Ovaries Urinary Calculus, Unspecified Impaired Fasting Glucose Unspecified Thrombosed Hemorrhoids Personal History of Cervical Dysplasia Anxiety State, Unspecified Previous Delivery, Antepartum Condition Or Complication Hidradenitis Kidney Stones Acne Vulgaris: Inflammatory Grade III to IV Scars: Acne and Excoriation--related Primary Focal Hyperhidrosis Contact Dermatitis and Other Eczema, Due to Unspecified Cause Folliculitis Pain in Joint, Lower Leg Headache(784.0) Lumbago Spasm of Muscle Adrenal Insufficiency (Hcc) Muscle Spasm Calculus of Kidney Lyme Disease Seborrheic Dermatitis Calculus of Ureter Monilial Vulvovaginitis Migraine Without Aura, With Intractable Migraine, So Stated, Without Mention of Status Migrainosus Microhematuria Flank Pain Female Stress Incontinence Menstrual Irregularity Palpitations Backache, Unspecified Anorectal Polyp Low Back Pain Buttock Pain Lumbosacral Neuritis Gross Hematuria History of Kidney Stones Straining On Urination Hesitancy Difficulty Voiding Chronic Pelvic Pain in Female Endometriosis Meds: prilosec 20mg qd, KCl 20meq qd (higher dose), lidocaine topical, miralax/MOM prn rarely, valium 5mg prn rarely bladder spasm, buproprion 150mg qd, atenolol 12.5mg qd (lower dose), colace prn, MVI qd, cetrizine 10mg qd, albuterol prn, zofran prn, tranexamic acid 650mg 2 tabs TID prn epistaxis, steroid cream, and nifedipine ointment fissures REVIEW OF SYSTEMS: Constitutional: occasional PERAZA/fever, No chills, feels ok, no neck stiffness/photophobia, lost 3lbs since last visit Cardiovascular: No chest pain occasional palpitations and No SOB/edema but has pain in hip/back and tender mass on Lt lateral thigh - seeing rheum and getting MRI Genitourinary: No red urine and no dysuria and No flank/abd pain but 2 nights ago was sick and had diarrhea and nausea/vomiting with reduced urine flow but all better now Last 4 Encounter BP Readings: Date: BP: 04/19/2017 110/79 02/23/2017 108/74 02/08/2017 124/69 01/20/2017 112/62 Last 4 Encounter Wt Readings: Date: Wt: 04/19/2017 82.1 kg (181 lb) 02/23/2017 81.9 kg (180 lb 9.6 oz) 02/17/2017 82.1 kg (181 lb 1.6 oz) 02/08/2017 83.9 kg (185 lb) 08/25/17 0931 08/25/17 0933 BP: 111/68 108/74 BP Site: Left Arm Left Arm BP Position: Sitting Standing BP Cuff Size: Regular Adult Regular Adult Pulse: 60 69 Resp: 16 Weight: 80.7 kg (178 lb) Height: 157.5 cm (5' 2) PHYSICAL EXAM: Constitutional: no acute distress, responsive, normal habitus, and nourished Eye: anicteric Neck: no jugular venous distension Cardiovascular: no peripheral edema, regular rate and rhythm, no murmurs/rubs Respiratory: normal respiratory effort, lungs clear bilaterally Abdomen: soft, non-tender, non-distended, normal bowel sounds, no masses, no bruit DATA (Diagnostic tests reviewed) RENAL KIDNEY STONE FLOWSHEET Latest Ref Rng AND Units 10/07/2015 05/06/2016 08/18/2017 CREATININE 0.58 - 0.96 mg/dL 0.80 0.73 0.75 BUN 7 - 21 mg/dL 10 7 12 SODIUM 136 - 144 mmol/L 141 139 141 POTASSIUM 3.7 - 5.1 mmol/L 3.8 4.0 3.6 (L) CHLORIDE 97 - 105 mmol/L 101 100 102 CO2 22 - 30 mmol/L 23 24 24 GLUCOSE 74 - 99 mg/dL 98 90 76 CALCIUM 8.5 - 10.2 mg/dL 9.3 9.3 9.1 PHOSPHORUS 2.5 - 4.5 mg/dL MAGNESIUM 1.7 - 2.3 mg/dL 2.3 2.4 (H) ALBUMIN 3.9 - 4.9 g/dL 4.4 4.1 WBC 3.70 - 11.00 k/uL 7.94 9.09 HEMOGLOBIN 11.5 - 15.5 g/dL 12.4 12.6 HEMATOCRIT 36.0 - 46.0 % 38.3 39.8 PLATELET COUNT 150 - 400 k/uL 316 308 PTH, INTACT 10 - 60 pg/mL URIC ACID 2.5 - 6.6 mg/dL 4.8 ASSESSMENT Kidney function: Cr normal (2018) Kidney sizes: normal without stones on U/S (2006, 2012, 2014, 2016) and bilateral punctate stones without obstruction on CT (2007, 2010, 2012, 12/2016) Proteinuria: no proteinuria (2010) and 200mg most recently (2018) Electrolytes: K runs low with normal CO2/Mg and high cortisol which did not suppress in face of dexa suppression - has not completed work up by local endocrine but adrenals were normal on CT (2017). I called her local web site administrator Dr. Lockhart [phone] whom she saw recently and asked that they complete the workup BP: controlled on low dose atenolol (being used for palpitations with negative holter/echo in 2016 and saw cardiology for vasovagal syncope) Volume status: euvolemic without requiring a diuretic (will consider Rx thiazide for stone prevention but need to address hypoK first and check 24hr urine) Stones: longstanding numerous calcium oxalate stones since age 18 in setting of crohn's with chronic cystitis making it difficult for her to tolerate citrate - will check 24hr urine and then decide on HCTZ. Note Ca/PTH/D are normal. Her father has stones as well but doubt this is hereditary and her urine pH is consistent with oxalate stones. Prognosis: guarded - stones are associated with CKD/CAD/osteoporosis and her father has CKD due to DM/HTN/stones. Reinforced low Na/oxalate diet and importance of water intake. Note REINIER/dsDNA/RF/SPEP negative Anemia: Hgb stable; defer colorectal CA screening to primary team (saw GI for possible crohn's at with negative colonoscopy in ) Bone mineral disease: vitamin D borderline - will recheck and defer dexa screening to her web site administrator Miscellaneous: ?Crohn's with GERD and IBS/chronic diarrhea - saw GI. ?RA with HLA B27 sacroilitis/ankylosing spondylitis - saw rheum with normal ESR but elevated CRP. LUTS/bladder spasm/chronic pelvic pain/incontinence/endometriosis. Asthma/Chronic Rhinitis/Deviated septum. Metabolic syndrome/Polycystic Ovaries/pre-DM and endometriosis - saw steeping press tender and endocrine and declined DM meds. Anxiety. Hidradenitis/Acne/Primary Focal Hyperhidrosis/Pityrosporum folliculitis (saw derm). Chronic low back pain/buttock pain. Migraines. Thigh mass - MRI pending. PLAN Follow up with me in 8 months Check 24 hour urine and blood test - depending upon the results can decide on addition of maxzide Schedule kidney ultrasound in 12/2017 Kidney stones are associated with heart, kidney, and bone disease Restrict sodium intake down to 2000mg per day Drink at least 2-3 liters of water (enough to produce at least 2 liters of urine) and drink water before bedtime and when you wake up to void in the middle of the night Restrict oxalate (e.g. spinach, nuts, rhubarb, chocolate, etc.) Avoid high doses of vitamin C and large amounts of orange juice Avoid soda, dark tea, caffeinated beverages, and chocolate - prefer lemon/s[place] juice (4-6 oz) Cantaloupe may increase citrate which helps prevent stones Do not restrict calcium intake but do not take calcium supplements Decrease protein (mainly animal) in diet (ideally, only one serving of meat/day) If you ever catch a stone please call me first and then bring it to the lab for analysis If you have questions or want to review your test results please call or email me SHARAN Observed: 08/25/2017 Status: COMPLETED Source: [place] 9:00 AM [facility] REPOSITORY Office Visit (NEPSPM) CLAUDEKAYA Mc ([id number]) 1985 F Date Time Provider Department 08/25/17 9:00 AM EDUARD SCHMIDT () NEPSPM During your visit today, we recorded the following information about you: Pulse Respiration Blood pressure Weight 69/minute 16/minute 108/74 80.7 kg Height 1.575 m Eduard Schmidt DO 08/25/2017 6:28 PM Signed [facility] NE[facility] HYPERTENSION [facility] SERVICE DATE: 08/25/2017 SERVICE TIME: 9AM CHIEF COMPLAINT: stones HPI: Ms. Arce is a 32 year old female who presents with abnormal kidney stones ? Duration (when): years ? Location (where): kidneys ? Severity (ex: creat 4.5, oliguric, BP 200/100): Cr normal ? Timing/Associated symptoms (ex: edema/SOB/continuous): intermittent stones PAST MEDICAL HISTORY: ACTIVE PROBLEM LIST Unspecified Asthma(493.90) Chronic Rhinitis Dysmetabolic Syndrome X IBS (IRRITABLE BOWEL SYNDROME) Anal Fissure Benign Neoplasm of Colon Esophageal Reflux Deviated Nasal Septum Polycystic Ovaries Urinary Calculus, Unspecified Impaired Fasting Glucose Unspecified Thrombosed Hemorrhoids Personal History of Cervical Dysplasia Anxiety State, Unspecified Previous Delivery, Antepartum Condition Or Complication Hidradenitis Kidney Stones Acne Vulgaris: Inflammatory Grade III to IV Scars: Acne and Excoriation--related Primary Focal Hyperhidrosis Contact Dermatitis and Other Eczema, Due to Unspecified Cause Folliculitis Pain in Joint, Lower Leg Headache(784.0) Lumbago Spasm of Muscle Adrenal Insufficiency (Hcc) Muscle Spasm Calculus of Kidney Lyme Disease Seborrheic Dermatitis Calculus of Ureter Monilial Vulvovaginitis Migraine Without Aura, With Intractable Migraine, So Stated, Without Mention of Status Migrainosus Microhematuria Flank Pain Female Stress Incontinence Menstrual Irregularity Palpitations Backache, Unspecified Anorectal Polyp Low Back Pain Buttock Pain Lumbosacral Neuritis Gross Hematuria History of Kidney Stones Straining On Urination Hesitancy Difficulty Voiding Chronic Pelvic Pain in Female Endometriosis Meds: prilosec 20mg qd, KCl 20meq qd (higher dose), lidocaine topical, miralax/MOM prn rarely, valium 5mg prn rarely bladder spasm, buproprion 150mg qd, atenolol 12.5mg qd (lower dose), colace prn, MVI qd, cetrizine 10mg qd, albuterol prn, zofran prn, tranexamic acid 650mg 2 tabs TID prn epistaxis, steroid cream, and nifedipine ointment fissures REVIEW OF SYSTEMS: Constitutional: occasional PERAZA/fever, No chills, feels ok, no neck stiffness/photophobia, lost 3lbs since last visit Cardiovascular: No chest pain occasional palpitations and No SOB/edema but has pain in hip/back and tender mass on Lt lateral thigh - seeing rheum and getting MRI Genitourinary: No red urine and no dysuria and No flank/abd pain but 2 nights ago was sick and had diarrhea and nausea/vomiting with reduced urine flow but all better now Last 4 Encounter BP Readings: Date: BP: 04/19/2017 110/79 02/23/2017 108/74 02/08/2017 124/69 01/20/2017 112/62 Last 4 Encounter Wt Readings: Date: Wt: 04/19/2017 82.1 kg (181 lb) 02/23/2017 81.9 kg (180 lb 9.6 oz) 02/17/2017 82.1 kg (181 lb 1.6 oz) 02/08/2017 83.9 kg (185 lb) 08/25/17 0931 08/25/17 0933 BP: 111/68 108/74 BP Site: Left Arm Left Arm BP Position: Sitting Standing BP Cuff Size: Regular Adult Regular Adult Pulse: 60 69 Resp: 16 Weight: 80.7 kg (178 lb) Height: 157.5 cm (5' 2) PHYSICAL EXAM: Constitutional: no acute distress, responsive, normal habitus, and nourished Eye: anicteric Neck: no jugular venous distension Cardiovascular: no peripheral edema, regular rate and rhythm, no murmurs/rubs Respiratory: normal respiratory effort, lungs clear bilaterally Abdomen: soft, non-tender, non-distended, normal bowel sounds, no masses, no bruit DATA (Diagnostic tests reviewed) RENAL KIDNEY STONE FLOWSHEET Latest Ref Rng AND Units 10/07/2015 05/06/2016 08/18/2017 CREATININE 0.58 - 0.96 mg/dL 0.80 0.73 0.75 BUN 7 - 21 mg/dL 10 7 12 SODIUM 136 - 144 mmol/L 141 139 141 POTASSIUM 3.7 - 5.1 mmol/L 3.8 4.0 3.6 (L) CHLORIDE 97 - 105 mmol/L 101 100 102 CO2 22 - 30 mmol/L 23 24 24 GLUCOSE 74 - 99 mg/dL 98 90 76 CALCIUM 8.5 - 10.2 mg/dL 9.3 9.3 9.1 PHOSPHORUS 2.5 - 4.5 mg/dL MAGNESIUM 1.7 - 2.3 mg/dL 2.3 2.4 (H) ALBUMIN 3.9 - 4.9 g/dL 4.4 4.1 WBC 3.70 - 11.00 k/uL 7.94 9.09 HEMOGLOBIN 11.5 - 15.5 g/dL 12.4 12.6 HEMATOCRIT 36.0 - 46.0 % 38.3 39.8 PLATELET COUNT 150 - 400 k/uL 316 308 PTH, INTACT 10 - 60 pg/mL URIC ACID 2.5 - 6.6 mg/dL 4.8 ASSESSMENT Kidney function: Cr normal (2018) Kidney sizes: normal without stones on U/S (2006, 2012, 2014, 2016) and bilateral punctate stones without obstruction on CT (2007, 2010, 2012, 12/2016) Proteinuria: no proteinuria (2010) and 200mg most recently (2018) Electrolytes: K runs low with normal CO2/Mg and high cortisol which did not suppress in face of dexa suppression - has not completed work up by local endocrine but adrenals were normal on CT (2017). I called her local web site administrator Dr. Lockhart [phone] whom she saw recently and asked that they complete the workup BP: controlled on low dose atenolol (being used for palpitations with negative holter/echo in 2016 and saw cardiology for vasovagal syncope) Volume status: euvolemic without requiring a diuretic (will consider Rx thiazide for stone prevention but need to address hypoK first and check 24hr urine) Stones: longstanding numerous calcium oxalate stones since age 18 in setting of crohn's with chronic cystitis making it difficult for her to tolerate citrate - will check 24hr urine and then decide on HCTZ. Note Ca/PTH/D are normal. Her father has stones as well but doubt this is hereditary and her urine pH is consistent with oxalate stones. Prognosis: guarded - stones are associated with CKD/CAD/osteoporosis and her father has CKD due to DM/HTN/stones. Reinforced low Na/oxalate diet and importance of water intake. Note REINIER/dsDNA/RF/SPEP negative Anemia: Hgb stable; defer colorectal CA screening to primary team (saw GI for possible crohn's at with negative colonoscopy in ) Bone mineral disease: vitamin D borderline - will recheck and defer dexa screening to her web site administrator Miscellaneous: ?Crohn's with GERD and IBS/chronic diarrhea - saw GI. ?RA with HLA B27 sacroilitis/ankylosing spondylitis - saw rheum with normal ESR but elevated CRP. LUTS/bladder spasm/chronic pelvic pain/incontinence/endometriosis. Asthma/Chronic Rhinitis/Deviated septum. Metabolic syndrome/Polycystic Ovaries/pre-DM and endometriosis - saw steeping press tender and endocrine and declined DM meds. Anxiety. Hidradenitis/Acne/Primary Focal Hyperhidrosis/Pityrosporum folliculitis (saw derm). Chronic low back pain/buttock pain. Migraines. Thigh mass - MRI pending. PLAN Follow up with me in 8 months Check 24 hour urine and blood test - depending upon the results can decide on addition of maxzide Schedule kidney ultrasound in 12/2017 Kidney stones are associated with heart, kidney, and bone disease Restrict sodium intake down to 2000mg per day Drink at least 2-3 liters of water (enough to produce at least 2 liters of urine) and drink water before bedtime and when you wake up to void in the middle of the night Restrict oxalate (e.g. spinach, nuts, rhubarb, chocolate, etc.) Avoid high doses of vitamin C and large amounts of orange juice Avoid soda, dark tea, caffeinated beverages, and chocolate - prefer lemon/[place] juice (4-6 oz) Cantaloupe may increase citrate which helps prevent stones Do not restrict calcium intake but do not take calcium supplements Decrease protein (mainly animal) in diet (ideally, only one serving of meat/day) If you ever catch a stone please call me first and then bring it to the lab for analysis If you have questions or want to review your test results please call or email me Eduard Schmidt DO 08/25/2017 10:01 AM Addendum Follow up with me in 8 months Check 24 hour urine and blood test when you can - depending upon the results can decide on addition of maxzide vs urocitK Schedule kidney ultrasound in 12/2017 Kidney stones are associated with heart, kidney, and bone disease Restrict sodium intake down to 2000mg per day Drink at least 2-3 liters of water (enough to produce at least 2 liters of urine) and drink water before bedtime and when you wake up to void in the middle of the night Restrict oxalate (e.g. spinach, nuts, rhubarb, chocolate, etc.) Avoid high doses of vitamin C and large amounts of orange juice Avoid soda, dark tea, caffeinated beverages, and chocolate - prefer lemon/siss[place] juice (4-6 oz) Cantaloupe may increase citrate which helps prevent stones Do not restrict calcium intake but do not take calcium supplements Decrease protein (mainly animal) in diet (ideally, only one serving of meat/day) If you ever catch a stone please call me first and then bring it to the lab for analysis If you have questions or want to review your test results please call or email me Please take care of your health ? see your primary care team yearly to reduce your heart disease risk, update your cancer/diabetes screening tests, and check your labs at last every 6 months. Always bring an updated list of your medications to each visit and review all pharmacy handouts - they list potential life threatening medication side effects and warnings. Reaching goal weight and blood pressure will help slow kidney disease progression (your BMI is listed on the print out - we have dietitians available for consultation). Avoid salt, intravenous contrast/dye (e.g. CAT scan), and anti-inflammatories (e.g. ibuprofen, motrin, advil, naprosyn, alleve, indomethacin) - use acetaminophen as directed. Avoid magnesium laxatives and fleets phosphosoda/enemas - use miralax as directed. Additional resources can be found at www.kidney.org and www.aakp.org Referring Provider: KIERSTEN HAYDEN [[id number]] Allergies As of Date: 08/25/2017 Noted Allergy Reaction BEES 06/18/2010 4 - Hives 7 - Swelling DOXYCYCLINE 09/26/2008 8 - GI Upset Comments: Not able to tolerate due to GI effects EUCALYPTUS 06/07/2007 Comments: tachycardia close airway FLEXERIL (CYCLOBENZAPRINE) 04/28/2012 1 - Mental Status Change Comments: Made patient feel worse than before KEFLEX (CEPHALEXIN) 05/09/2002 4 - Hives 10 - Anaphylaxis LATEX 08/15/2008 7 - Swelling MINOCYCLINE 03/07/2008 8 - GI Upset nitroglycerin suppositories [Othe*01/31/2008 NSAIDS (NON-STEROIDAL ANTI-INFLAM*2015 5 - Intolerance TIZANIDINE 12/04/2010 1 - Mental Status Change Comments: Low HR, cold and clammy (subjective only) VICODIN (HYDROCODONE-ACETAMINOPHE*03/31/2010 9 - Itching Date Reviewed: 08/25/2017 Reviewed by: Eduard Dent - Fully Assessed Reason for Visit: Follow Up [171] Primary Visit Diagnosis:Calculus of kidney [N20.0] Other Visit Diagnoses:Essential hypertension [I10] Hypokalemia [E87.6] Order(s):US KIDNEY/BLADDER [8866582] Order #: [id number] FUTURE RENAL FUNCTION PANEL [SQRFP] Order #: [id number] FUTURE VITAMIN D 25 HYDROXY [SQVITD] Order #: [id number] FUTURE Prescriptions as of 08/25/2017 Sig: POTASSIUM CHLORIDE ER 10 MEQ * Take 2 tablets by mouth once * HYDROCORTISONE TOPICAL Apply to affected area. DAPSONE 25 MG TABLET Take 2 tablets by mouth once * OMEPRAZOLE 20 MG CAPSULE,JACQUE* TAKE 1 CAPSULE BY MOUTH ONCE * KETOCONAZOLE 2 % TOPICAL CREAM Apply 1 application to affect* LIDOCAINE 2 % MUCOSAL JELLY Apply 1 application to affect* COMPOUNDED PRESCRIPTION Miralax 238gm bottle and (2) * DIAZEPAM 5 MG TABLET Take 1 tablet by mouth once d* DEXAMETHASONE 1 MG TABLET Take 1 mg by mouth once daily* MAGNESIUM HYDROXIDE 400 MG/5 * Take 5 mL by mouth once daily* ATENOLOL 25 MG TABLET Take 1 tablet by mouth once d* DOCUSATE SODIUM 100 MG CAPSULE Take 100 mg by mouth twice da* SIMETHICONE 125 MG CAPSULE Take 1 tablet by mouth three * HYDROCORTISONE ACETATE 25 MG * 1 Suppository by RECTAL route* TRANEXAMIC ACID 650 MG TABLET Take 2 tablets by mouth three* ONDANSETRON HCL 4 MG TABLET Take 4 mg by mouth every 8 ho* COMPOUNDED PRESCRIPTION Apply to affected area. Nife* ALBUTEROL 90 MCG/ACTUATION AE* Inhale 2 Puffs as instructed * * CETIRIZINE 10 MG TABLET Take 1 tablet by mouth once d* * MULTI-VITAMIN ORAL Take by mouth once daily. 2 * Problem List As Of Date 08/25/2017 Noted Resolved PAIN IN JOINT, LOWER LEG [M25.569] INVALID FOR*01/24/2008 ASTHMA UNSPECIFIED [J45.909] INVALID FOR* Priority: Mild CHRONIC RHINITIS [J31.0] INVALID FOR* DYSMETABOLIC SYNDROME X [E88.81] INVALID FOR* Priority: Moderate More... 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 IMPAIRED FASTING GLUCOSE [R73.01] INVALID FOR* Priority: Mild ABN GLUCOSE-ANTEPARTUM [O99.810] 08/01/2008 More... THROMBOS HEMORRHOIDS NOS [K64.5] INVALID FOR* Priority: Mild More... Routine general medical examination at a health*INVALID FOR*11/21/2011 Priority: Mild Class: Chronic More... ROUTINE MELT HELPER EXAMINATION [Z01.419] INVALID FOR*08/15/2008 Class: Chronic More... HX OF CERVICAL DYSPLASIA [Z87.410] INVALID FOR* More... ANXIETY STATE NOS [F41.1] INVALID FOR* Priority: Moderate More... PREV DELIVERY NOS-ANTEPART [O34.219] INVALID FOR* POOR GRTH-ANTEPART [O36.5990] INVALID FOR*09/26/2008 Routine gynecological examination [Z01.419] INVALID FOR*11/21/2011 Class: Chronic More... HIDRADENITIS [L73.2] INVALID FOR* Priority: Moderate More... 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 Pyoderma, unspecified [L08.0] INVALID FOR*05/21/2016 Pain in joint, lower leg [M25.569] INVALID FOR* Headache [R51] INVALID FOR* Lumbago [M54.5] INVALID FOR* Spasm of muscle [M62.838] INVALID FOR* Adrenal insufficiency [E27.40] Muscle spasm [M62.838] INVALID FOR* Calculus of kidney [N20.0] INVALID FOR* Lyme disease [A69.20] INVALID FOR* Seborrheic Dermatitis [L21.8] INVALID FOR* Xerosis cutis [L85.3] INVALID FOR*05/21/2016 Calculus of ureter [N20.1] INVALID FOR* Pyoderma [L08.0] INVALID FOR*05/21/2016 Pruritus [L29.9] INVALID FOR*05/21/2016 Monilial vulvovaginitis [B37.3] INVALID FOR* Migraine without aura, with intractable migrain*INVALID FOR* Microhematuria [R31.29] INVALID FOR* Flank pain [R10.9] INVALID FOR* Female stress incontinence [N39.3] INVALID FOR* Menstrual irregularity [N92.6] INVALID FOR* Palpitations [R00.2] INVALID FOR* Backache, unspecified [M54.9] INVALID FOR* Anorectal polyp [K62.0, K62.1] INVALID FOR* Low back pain [M54.5] INVALID FOR* Buttock pain [M79.1] INVALID FOR* Lumbosacral neuritis [M54.17] INVALID FOR* Gross hematuria [R31.0] INVALID FOR* History of kidney stones [Z87.442] INVALID FOR* Straining on urination [R39.16] INVALID FOR* Hesitancy [R39.11] INVALID FOR* Difficulty voiding [R39.198] INVALID FOR* Chronic pelvic pain in female [R10.2, G89.29] INVALID FOR* Endometriosis [N80.9] INVALID FOR* Other instructions from your clinician: Follow up with me in 8 months Check 24 hour urine and blood test when you can - depending upon the results can decide on addition of maxzide vs urocitK Schedule kidney ultrasound in 12/2017 Kidney stones are associated with heart, kidney, and bone disease Restrict sodium intake down to 2000mg per day Drink at least 2-3 liters of water (enough to produce at least 2 liters of urine) and drink water before bedtime and when you wake up to void in the middle of the night Restrict oxalate (e.g. spinach, nuts, rhubarb, chocolate, etc.) Avoid high doses of vitamin C and large amounts of orange juice Avoid soda, dark tea, caffeinated beverages, and chocolate - prefer lemon/[place] juice (4-6 oz) Cantaloupe may increase citrate which helps prevent stones Do not restrict calcium intake but do not take calcium supplements Decrease protein (mainly animal) in diet (ideally, only one serving of meat/day) If you ever catch a stone please call me first and then bring it to the lab for analysis If you have questions or want to review your test results please call or email me Please take care of your health ? see your primary care team yearly to reduce your heart disease risk, update your cancer/diabetes screening tests, and check your labs at last every 6 months. Always bring an updated list of your medications to each visit and review all pharmacy handouts - they list potential life threatening medication side effects and warnings. Reaching goal weight and blood pressure will help slow kidney disease progression (your BMI is listed on the print out - we have dietitians available for consultation). Avoid salt, intravenous contrast/dye (e.g. CAT scan), and anti-inflammatories (e.g. ibuprofen, motrin, advil, naprosyn, alleve, indomethacin) - use acetaminophen as directed. Avoid magnesium laxatives and fleets phosphosoda/enemas - use miralax as directed. Additional resources can be found at www.kidney.org and www.aakp.org Encounter Status:Closed by EDUARD SCHMIDT on 08/25/17 RE-MRI PELVIS W/O-W Observed: 08/25/2017 Status: F Source: [place] 12:00 AM [facility] REPOSITORY Images were obtained outside of [facility] [id number] PROGRESS Observed: 08/24/2017 Status: COMPLETED Source: [place] 11:26 AM [facility] REPOSITORY HNO ID: [id number] Author: Sterling Stern Service: (none) Author Type: Physician Type: Progress Notes Filed: 08/24/2017 5:51 PM Note Text: PERTINENT CARDIAC HISTORY Palpitations Syncope - vasovagal Ankylosing spondylitis - with Crohn's ADHERENCE TO GUIDELINES MEE-I or ARB for HF with prior LVEF<40 (NQF 0081) - N/A ASA or Plavix for ASHD (NQF 0067) - N/A Beta edson for ASHD with prior VA or prior LVEF<40 (NQF 0070) - N/A Beta edson for HF with prior LVEF<40 (NQF 0083) - N/A MEE-I or ARB for ASHD with DM or prior LVEF<40 (NQF 0066) - N/A Statin therapy for ASHD or FHL or DM - N/A BMI documented and plan if >25 (NQF 0421) - lifestyle recommendation form Tobacco use screening and referral (NQF 0028) - lifestyle recommendation form Recommendation for whole food, plant based diet - lifestyle recommendation form CLINICAL IMPRESSION/PLAN: Kaya Arce has cardiac awareness. No arrhythmia has been documented on previous monitoring. Her symptoms of palpitation correlate with sinus tachycardia. She may benefit from labetalol. However, I asked her to see how she does for the next few weeks with the increased dose of potassium. We can repeat her monitor if necessary. I will see her in 8 months. If she develops discomfort with exercise or exercise intolerance worsens, she's been advised to let me know. Written and verbal health teaching given to patient, patient verbalizes understanding and agrees with treatment plan. DIAGNOSIS FOR VISIT: Palpitations HISTORY OF PRESENT ILLNESS Kaya Arce returns for follow-up of her palpitations. She reports that her heart rate has been varying from 50 up to 199 with activity. She continues to have occasional palpitations. She just increased her potassium dose. She's had no chest pain. Exercise tolerance has been stable. She's had minimal edema. She denies syncope, TIAs, amaurosis. She will be undergoing MRI scan in the near future for thigh mass and is anxious about that. ALLERGIES: ALLERGIES Allergen Reactions - Bees Hives, Swelling - Doxycycline GI Upset Not able to tolerate due to GI effects - Eucalyptus tachycardia close airway - Flexeril [Cyclobenz* Mental Status Change Made patient feel worse than before - Keflex [Cephalexin] Hives, Anaphylaxis - Latex Swelling - Minocycline GI Upset - Nitroglycerin Suppo* - Nsaids (Non-Steroid* Intolerance - Tizanidine Mental Status Change Low HR, cold and clammy (subjective only) - Vicodin [Hydrocodon* Itching CURRENT OUTPATIENT MEDICATIONS: potassium chloride (KLOR-CON 10) 10 mEq tablet Take 2 tablets by mouth once daily. HYDROCORTISONE TOPICAL Apply to affected area. dapsone 25 mg tablet Take 2 tablets by mouth once daily. Two (2) X 25 mg tablets = 50 mg omeprazole (PRILOSEC) 20 mg capsule TAKE 1 CAPSULE BY MOUTH ONCE DAILY. MIRALAX / GATORADE PREP Miralax 238gm bottle and (2) 32oz bottles of Gatorade, AND 4 Dulcolax 5mg tabs - as directed per instructions diazePAM (VALIUM) 5 mg tablet Take 1 tablet by mouth once daily as needed. magnesium hydroxide (MILK OF MAGNESIA) 400 mg/5 mL suspension Take 5 mL by mouth once daily as needed. atenolol (TENORMIN) 25 mg tablet Take 1 tablet by mouth once daily. docusate sodium (COLACE) 100 mg capsule Take 100 mg by mouth twice daily as needed. Simethicone (GAS FREE EXTRA STRENGTH) 125 mg cap Take 1 tablet by mouth three times daily as needed. Tranexamic Acid 650 mg tab Take 2 tablets by mouth three times daily as needed (until bleeding slows or stops for up to 5 days). ondansetron (ZOFRAN, HYDROCHLORIDE,) 4 mg tablet Take 4 mg by mouth every 8 hours as needed. albuterol 90 mcg/actuation Aero Inhale 2 Puffs as instructed every 4 hours as needed (shortness of breath). cetirizine 10 mg tablet Take 1 tablet by mouth once daily. MULTI-VITAMIN ORAL Take by mouth once daily. 2 tablets daily ketoconazole (NIZORAL) 2 % cream Apply 1 application to affected area once daily as needed. lidocaine (XYLOCAINE) 2 % jelly Apply 1 application to affected area as directed. dexamethasone (DECADRON) 1 mg tablet Take 1 mg by mouth once daily as needed. hydrocortisone (HEMORRHOIDAL HC) 25 mg suppository 1 Suppository by RECTAL route twice daily as needed. Insert one (1) in the rectum each night before bed. COMPOUNDED PRESCRIPTION Apply to affected area. Nifedipine 0.3% apply to anal area twice daily. PHYSICAL EXAMINATION: VITAL SIGNS: BP 111/74 Pulse 92 Wt 177 lb 8 oz (80.5kg) Chest: Clear to percussion and auscultation. Trachea is midline. Air entry is equal. Cardiac: Regular rhythm. S1 and S2 are normal. PMI is nondisplaced. There is a soft systolic ejection murmur. Carotids are brisk without bruits. JVP is less than 10 cm. Abdomen: Soft and nontender. There are no pulsatile masses or bruits. No liver enlargement. Bowel sounds are active. Extremities: No edema. Pulses are intact and symmetrical. Labs were reviewed. Renal function is normal. Magnesium was 2.4. Potassium was slightly low at 3.6. EKG shows sinus rhythm and is within normal limits. There is no significant change. Electronically Signed: Sterling Stern MD August 24, 2017 11:26 AM CC: Rudy Curran DO EKG1 Observed: 08/24/2017 Status: F Source: [place] 11:05 AM [facility] REPOSITORY NAME : KAYA ARCE PID : [id number] : 1985 Gender : Female Race : ORD : Procedure Date : Aug 24 2017 11:05:15 Edit Date : Sep 14 2017 07:39:24 Diagnosis:NORMAL SINUS RHYTHM NORMAL ECG Confirmed by HARLEY WANG D.O. ([id number]) on 09/14/2017 7:39:19 AM Ventricular Rate : 92 BPM Atrial Rate : 92 BPM P-R Interval : 126 ms QRS Duration : 84 ms Q-T Interval : 380 ms QTC Calculation(Bezet) : 469 ms P [place] : 63 degrees R [place] : 54 degrees T [place] : 53 degrees Test Reason : Location : 136 : [place] Overread By : HARLEY WANG D.O. Edited By : HARLEY WANG D.O. Referred By : LEENA Acquired by : SHARAN VALERIO Observed: 08/24/2017 Status: COMPLETED Source: [place] 11:00 AM [facility] REPOSITORY Office Visit (CAWSTR) MAGUISATURNINOKAYA Mc ([id number]) 1985 F Date Time Provider Department 08/24/17 11:00 AM STERLING STERN CAWSTR During your visit today, we recorded the following information about you: Pulse Blood pressure Weight 92/minute 111/74 80.5 kg Sterling Stern MD 08/24/2017 5:51 PM Signed PERTINENT CARDIAC HISTORY Palpitations Syncope - vasovagal Ankylosing spondylitis - with Crohn's ADHERENCE TO GUIDELINES MEE-I or ARB for HF with prior LVEF<40 (NQF 0081) - N/A ASA or Plavix for ASHD (NQF 0067) - N/A Beta edson for ASHD with prior VA or prior LVEF<40 (NQF 0070) - N/A Beta edson for HF with prior LVEF<40 (NQF 0083) - N/A MEE-I or ARB for ASHD with DM or prior LVEF<40 (NQ 0066) - N/A Statin therapy for ASHD or FHL or DM - N/A BMI documented and plan if >25 (NQ 0421) - lifestyle recommendation form Tobacco use screening and referral ([facility] 0028) - lifestyle recommendation form Recommendation for whole food, plant based diet - lifestyle recommendation form CLINICAL IMPRESSION/PLAN: Kaya Arce has cardiac awareness. No arrhythmia has been documented on previous monitoring. Her symptoms of palpitation correlate with sinus tachycardia. She may benefit from labetalol. However, I asked her to see how she does for the next few weeks with the increased dose of potassium. We can repeat her monitor if necessary. I will see her in 8 months. If she develops discomfort with exercise or exercise intolerance worsens, she's been advised to let me know. Written and verbal health teaching given to patient, patient verbalizes understanding and agrees with treatment plan. DIAGNOSIS FOR VISIT: Palpitations HISTORY OF PRESENT ILLNESS Kaya Arce returns for follow-up of her palpitations. She reports that her heart rate has been varying from 50 up to 199 with activity. She continues to have occasional palpitations. She just increased her potassium dose. She's had no chest pain. Exercise tolerance has been stable. She's had minimal edema. She denies syncope, TIAs, amaurosis. She will be undergoing MRI scan in the near future for thigh mass and is anxious about that. ALLERGIES: ALLERGIES Allergen Reactions - Bees Hives, Swelling - Doxycycline GI Upset Not able to tolerate due to GI effects - Eucalyptus tachycardia close airway - Flexeril [Cyclobenz* Mental Status Change Made patient feel worse than before - Keflex [Cephalexin] Hives, Anaphylaxis - Latex Swelling - Minocycline GI Upset - Nitroglycerin Suppo* - Nsaids (Non-Steroid* Intolerance - Tizanidine Mental Status Change Low HR, cold and clammy (subjective only) - Vicodin [Hydrocodon* Itching CURRENT OUTPATIENT MEDICATIONS: potassium chloride (KLOR-CON 10) 10 mEq tablet Take 2 tablets by mouth once daily. HYDROCORTISONE TOPICAL Apply to affected area. dapsone 25 mg tablet Take 2 tablets by mouth once daily. Two (2) X 25 mg tablets = 50 mg omeprazole (PRILOSEC) 20 mg capsule TAKE 1 CAPSULE BY MOUTH ONCE DAILY. MIRALAX / GATORADE PREP Miralax 238gm bottle and (2) 32oz bottles of Gatorade, AND 4 Dulcolax 5mg tabs - as directed per instructions diazePAM (VALIUM) 5 mg tablet Take 1 tablet by mouth once daily as needed. magnesium hydroxide (MILK OF MAGNESIA) 400 mg/5 mL suspension Take 5 mL by mouth once daily as needed. atenolol (TENORMIN) 25 mg tablet Take 1 tablet by mouth once daily. docusate sodium (COLACE) 100 mg capsule Take 100 mg by mouth twice daily as needed. Simethicone (GAS FREE EXTRA STRENGTH) 125 mg cap Take 1 tablet by mouth three times daily as needed. Tranexamic Acid 650 mg tab Take 2 tablets by mouth three times daily as needed (until bleeding slows or stops for up to 5 days). ondansetron (ZOFRAN, HYDROCHLORIDE,) 4 mg tablet Take 4 mg by mouth every 8 hours as needed. albuterol 90 mcg/actuation Aero Inhale 2 Puffs as instructed every 4 hours as needed (shortness of breath). cetirizine 10 mg tablet Take 1 tablet by mouth once daily. MULTI-VITAMIN ORAL Take by mouth once daily. 2 tablets daily ketoconazole (NIZORAL) 2 % cream Apply 1 application to affected area once daily as needed. lidocaine (XYLOCAINE) 2 % jelly Apply 1 application to affected area as directed. dexamethasone (DECADRON) 1 mg tablet Take 1 mg by mouth once daily as needed. hydrocortisone (HEMORRHOIDAL HC) 25 mg suppository 1 Suppository by RECTAL route twice daily as needed. Insert one (1) in the rectum each night before bed. COMPOUNDED PRESCRIPTION Apply to affected area. Nifedipine 0.3% apply to anal area twice daily. PHYSICAL EXAMINATION: VITAL SIGNS: BP 111/74 Pulse 92 Wt 177 lb 8 oz (80.5kg) Chest: Clear to percussion and auscultation. Trachea is midline. Air entry is equal. Cardiac: Regular rhythm. S1 and S2 are normal. PMI is nondisplaced. There is a soft systolic ejection murmur. Carotids are brisk without bruits. JVP is less than 10 cm. Abdomen: Soft and nontender. There are no pulsatile masses or bruits. No liver enlargement. Bowel sounds are active. Extremities: No edema. Pulses are intact and symmetrical. Labs were reviewed. Renal function is normal. Magnesium was 2.4. Potassium was slightly low at 3.6. EKG shows sinus rhythm and is within normal limits. There is no significant change. Electronically Signed: Sterling Stern MD August 24, 2017 11:26 AM CC: Rudy Curran, DO Sterling Stern MD 08/24/2017 11:26 AM Signed LIFESTYLE CHANGE A healthy lifestyle is the most important component of your overall treatment plan. Please give serious thought to the following areas and commit to making senior living changes. EAT A WHOLE FOOD, PLANT BASED DIET The nutrition your body gets is more important than the medicine you take. What matters most is the overall way you eat. We encourage you to minimize the use of animal products (which include dairy and all meats except fatty fish) and use whole, unprocessed plant foods to provide your protein, vitamins and other nutrients. We have a lot of information to share with you on this topic. This is not a diet. It is a way of life that you will keep with you. EXERCISE REGULARLY It is not important to spend hours in the gym, lifting weights and perspiring heavily. A total of 2-3 hours per week of aerobic (causing you to be moderately short of breath) exercise is sufficient to improve your health. Talk to us before you begin a new exercise program, if you have heart disease or experience shortness of breath or chest pain. REDUCE STRESS Chronic emotional and physical stress leads to disease. Ways of reducing stress include meditation, visualization, prayer, yoga and other forms of relaxation therapy. Consistency is the cameron. Find a technique that works for you and do it every day. CULTIVATE RELATIONSHIPS Loneliness and isolation have a major negative impact on health. Seek out others who can love, care for and nurture you. Avoid hurtful relationships. MAINTAIN IDEAL BODY WEIGHT The best way to do this is to do all the things above. Our bodies naturally find the right weight if we keep moving and feed ourselves the right food. If your BMI is greater than 25, we strongly recommend a referral to a weight management program. Please speak to us or your family physician about available programs. AVOID NICOTINE IN ALL FORMS This includes all tobacco products, whether chewed, smoked, vaped, or rubbed on the skin. Smoking cessation programs, which can make use of tobacco substitutes, medications to suppress cravings and behavior management, are available. Please contact your family physician about programs in your area. Referring Provider: STERLING STERN [[id number]] Allergies As of Date: 08/24/2017 Noted Allergy Reaction BEES 06/18/2010 4 - Hives 7 - Swelling DOXYCYCLINE 09/26/2008 8 - GI Upset Comments: Not able to tolerate due to GI effects EUCALYPTUS 06/07/2007 Comments: tachycardia close airway FLEXERIL (CYCLOBENZAPRINE) 04/28/2012 1 - Mental Status Change Comments: Made patient feel worse than before KEFLEX (CEPHALEXIN) 05/09/2002 4 - Hives 10 - Anaphylaxis LATEX 08/15/2008 7 - Swelling MINOCYCLINE 03/07/2008 8 - GI Upset nitroglycerin suppositories [Othe*01/31/2008 NSAIDS (NON-STEROIDAL ANTI-INFLAM*2015 5 - Intolerance TIZANIDINE 12/04/2010 1 - Mental Status Change Comments: Low HR, cold and clammy (subjective only) VICODIN (HYDROCODONE-ACETAMINOPHE*03/31/2010 9 - Itching Date Reviewed: 08/24/2017 Reviewed by: Koki (Rn) RONNY Valerio - Fully Assessed Reason for Visit: Established Patient [175] Primary Visit Diagnosis:Palpitations [R00.2] Order(s):ECG COMPLETE W INTERPRETATION [ECG01] Order #: [id number] FUTURE Prescriptions as of 08/24/2017 Sig: POTASSIUM CHLORIDE ER 10 MEQ * Take 2 tablets by mouth once * HYDROCORTISONE TOPICAL Apply to affected area. DAPSONE 25 MG TABLET Take 2 tablets by mouth once * OMEPRAZOLE 20 MG CAPSULE,JACQUE* TAKE 1 CAPSULE BY MOUTH ONCE * COMPOUNDED PRESCRIPTION Miralax 238gm bottle and (2) * DIAZEPAM 5 MG TABLET Take 1 tablet by mouth once d* MAGNESIUM HYDROXIDE 400 MG/5 * Take 5 mL by mouth once daily* ATENOLOL 25 MG TABLET Take 1 tablet by mouth once d* DOCUSATE SODIUM 100 MG CAPSULE Take 100 mg by mouth twice da* SIMETHICONE 125 MG CAPSULE Take 1 tablet by mouth three * TRANEXAMIC ACID 650 MG TABLET Take 2 tablets by mouth three* ONDANSETRON HCL 4 MG TABLET Take 4 mg by mouth every 8 ho* ALBUTEROL 90 MCG/ACTUATION AE* Inhale 2 Puffs as instructed * * CETIRIZINE 10 MG TABLET Take 1 tablet by mouth once d* * MULTI-VITAMIN ORAL Take by mouth once daily. 2 * KETOCONAZOLE 2 % TOPICAL CREAM Apply 1 application to affect* LIDOCAINE 2 % MUCOSAL JELLY Apply 1 application to affect* DEXAMETHASONE 1 MG TABLET Take 1 mg by mouth once daily* HYDROCORTISONE ACETATE 25 MG * 1 Suppository by RECTAL route* COMPOUNDED PRESCRIPTION Apply to affected area. Nife* Problem List As Of Date 08/24/2017 Noted Resolved PAIN IN JOINT, LOWER LEG [M25.569] INVALID FOR*01/24/2008 ASTHMA UNSPECIFIED [J45.909] INVALID FOR* Priority: Mild CHRONIC RHINITIS [J31.0] INVALID FOR* DYSMETABOLIC SYNDROME X [E88.81] INVALID FOR* Priority: Moderate More... 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 IMPAIRED FASTING GLUCOSE [R73.01] INVALID FOR* Priority: Mild ABN GLUCOSE-ANTEPARTUM [O99.810] 08/01/2008 More... THROMBOS HEMORRHOIDS NOS [K64.5] INVALID FOR* Priority: Mild More... Routine general medical examination at a health*INVALID FOR*11/21/2011 Priority: Mild Class: Chronic More... ROUTINE MELT HELPER EXAMINATION [Z01.419] INVALID FOR*08/15/2008 Class: Chronic More... HX OF CERVICAL DYSPLASIA [Z87.410] INVALID FOR* More... ANXIETY STATE NOS [F41.1] INVALID FOR* Priority: Moderate More... PREV DELIVERY NOS-ANTEPART [O34.219] INVALID FOR* POOR GRTH-ANTEPART [O36.5990] INVALID FOR*09/26/2008 Routine gynecological examination [Z01.419] INVALID FOR*11/21/2011 Class: Chronic More... HIDRADENITIS [L73.2] INVALID FOR* Priority: Moderate More... 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 Pyoderma, unspecified [L08.0] INVALID FOR*05/21/2016 Pain in joint, lower leg [M25.569] INVALID FOR* Headache [R51] INVALID FOR* Lumbago [M54.5] INVALID FOR* Spasm of muscle [M62.838] INVALID FOR* Adrenal insufficiency [E27.40] Muscle spasm [M62.838] INVALID FOR* Calculus of kidney [N20.0] INVALID FOR* Lyme disease [A69.20] INVALID FOR* Seborrheic Dermatitis [L21.8] INVALID FOR* Xerosis cutis [L85.3] INVALID FOR*05/21/2016 Calculus of ureter [N20.1] INVALID FOR* Pyoderma [L08.0] INVALID FOR*05/21/2016 Pruritus [L29.9] INVALID FOR*05/21/2016 Monilial vulvovaginitis [B37.3] INVALID FOR* Migraine without aura, with intractable migrain*INVALID FOR* Microhematuria [R31.29] INVALID FOR* Flank pain [R10.9] INVALID FOR* Female stress incontinence [N39.3] INVALID FOR* Menstrual irregularity [N92.6] INVALID FOR* Palpitations [R00.2] INVALID FOR* Backache, unspecified [M54.9] INVALID FOR* Anorectal polyp [K62.0, K62.1] INVALID FOR* Low back pain [M54.5] INVALID FOR* Buttock pain [M79.1] INVALID FOR* Lumbosacral neuritis [M54.17] INVALID FOR* Gross hematuria [R31.0] INVALID FOR* History of kidney stones [Z87.442] INVALID FOR* Straining on urination [R39.16] INVALID FOR* Hesitancy [R39.11] INVALID FOR* Difficulty voiding [R39.198] INVALID FOR* Chronic pelvic pain in female [R10.2, G89.29] INVALID FOR* Endometriosis [N80.9] INVALID FOR* Other instructions from your clinician: LIFESTYLE CHANGE A healthy lifestyle is the most important component of your overall treatment plan. Please give serious thought to the following areas and commit to making termite control servicer changes. EAT A WHOLE FOOD, PLANT BASED DIET The nutrition your body gets is more important than the medicine you take. What matters most is the overall way you eat. We encourage you to minimize the use of animal products (which include dairy and all meats except fatty fish) and use whole, unprocessed plant foods to provide your protein, vitamins and other nutrients. We have a lot of information to share with you on this topic. This is not a diet. It is a way of life that you will keep with you. EXERCISE REGULARLY It is not important to spend hours in the gym, lifting weights and perspiring heavily. A total of 2-3 hours per week of aerobic (causing you to be moderately short of breath) exercise is sufficient to improve your health. Talk to us before you begin a new exercise program, if you have heart disease or experience shortness of breath or chest pain. REDUCE STRESS Chronic emotional and physical stress leads to disease. Ways of reducing stress include meditation, visualization, prayer, yoga and other forms of relaxation therapy. Consistency is the cameron. Find a technique that works for you and do it every day. CULTIVATE RELATIONSHIPS Loneliness and isolation have a major negative impact on health. Seek out others who can love, care for and nurture you. Avoid hurtful relationships. MAINTAIN IDEAL BODY WEIGHT The best way to do this is to do all the things above. Our bodies naturally find the right weight if we keep moving and feed ourselves the right food. If your BMI is greater than 25, we strongly recommend a referral to a weight management program. Please speak to us or your family physician about available programs. AVOID NICOTINE IN ALL FORMS This includes all tobacco products, whether chewed, smoked, vaped, or rubbed on the skin. Smoking cessation programs, which can make use of tobacco substitutes, medications to suppress cravings and behavior management, are available. Please contact your family physician about programs in your area. Encounter Status:Closed by STERLING STERN MD on 08/24/17 CBC AND DIFFERENTIAL Collected: 08/18/2017 Status: F Source: [place] 3:05 PM [facility] REPOSITORY TYPE CODE TESTS RESULT OUT OF REFERENCE UNITS RANGE LAB WBC 3.70-11.00 k/uL WBC 9.09 LAB RBC 3.90-5.20 m/uL RBC 4.63 LAB HGB 11.5-15.5 g/dL Hemoglobin 12.6 LAB HCT 36.0-46.0 % Hematocrit 39.8 LAB MCV 80.0-100.0 fL MCV 86.0 LAB MCH 26.0-34.0 pG MCH 27.2 LAB MCHC 30.5-36.0 g/dL MCHC 31.7 LAB RDWCV 11.5-15.0 % RDW-CV 13.3 LAB PLTCT 150-400 k/uL Platelet Count 308 LAB MPV 9.0-12.7 fL MPV 9.5 LAB ANEUT % Neut% 53.5 LAB AANEUT 1.45-7.50 k/uL Abs Neut 4.87 LAB ALYMP % Lymph% 38.0 LAB AALYMP 1.00-4.00 k/uL Abs Lymph 3.45 LAB AMONO % Coal% 6.1 LAB AAMONO <0.87 k/uL Abs Coal 0.55 LAB AEOS % Eosin% 2.2 LAB AAEOS <0.46 k/uL Abs Eosin 0.20 LAB ABASO % Baso% 0.2 LAB AABASO <0.11 k/uL Abs Baso <0.03 LAB AUNRBC 0 /100 WBC NRBCs 0.0 LAB ABNRBC <0.01 k/uL Absolute nRBC <0.01 LAB DTYP DTYPE Auto Diff Performed By: #### CBCDIF, G6PDQT #### [facility] [address] [place], [place] [address] G-6-PD QUANTITATIVE Collected: 08/18/2017 Status: F Source: [place] 3:05 PM [facility] REPOSITORY TYPE CODE TESTS RESULT OUT OF REFERENCE UNITS RANGE LAB G6PDQT 8.6-18.0 U/g Hb G-6-PD Quantitative 14.0 Result Comment: Test performed by [employer] reference range: 9.9 to 16.6 U/g Hb. Performed By: #### CBCDIF, G6PDQT #### [facility] [address] [place], [place] [address] BASIC METABOLIC PANL Collected: 08/18/2017 Status: F Source: [place] 3:05 PM [facility] REPOSITORY TYPE CODE TESTS RESULT OUT OF REFERENCE UNITS RANGE LAB GLU 74-99 mg/dL Glucose 76 Result Comment: The [place] [employer] (ADA) provides guidance for cutoff values for fasting glucose and random glucose. The ADA defines fasting as no caloric intake for at least 8 hours. Fas ting plasma glucose results between 100 to 125 mg/dL indicate increased risk for diabetes (prediabetes). Fasting plasma glucose results greater than or equal to 126 mg/dL meet the criteria for diagnosis of diabetes. In the absence of unequivocal hyperglycemia, results should be confirmed by repeat testing. In a patient with classic symptoms of hyperglycemia or hyperglycemic crisis, random plasma glucose results greater than or equal to 200 mg/dL meet the criteria for diagnosis of diabetes. Reference: Standards of Medical Care in Diabetes 2016, [place] [employer]. Diabetes Care. 2016.39(Suppl 1). LAB BUN 7-21 mg/dL BUN 12 LAB CRET 0.58-0.96 mg/dL Creatinine 0.75 LAB NA 136-144 mmol/L Sodium 141 LAB K 3.7-5.1 mmol/L Potassium Low 3.6 LAB CL 97-105 mmol/L Chloride 102 LAB CO2 22-30 mmol/L CO2 24 LAB AGAP 9-18 mmol/L Anion Gap 15 LAB CA 8.5-10.2 mg/dL Calcium, Total 9.1 LAB GFRAA eGFR- Amer. >60 LAB GFRNAA . eGFR-All Other Races >60 Result Comment: eGFR (Estimated GFR) Units of measure: mL/min/1.73 meters squared eGFR is derived from the reexpressed MDRD Study equation using the following parameters: serum creatinine, age, gender and race. The creatinine assay has been calibrated to be traceable to IDMS. An eGFR <60 mL/min/1.73m2 for >3 months is consistent with chronic kidney disease. Refer to KDOQI guidelines for clinical interpretation. In patients with unstable renal function, e.g. those with acute kidney injury, the eGFR may not accurately reflect actual GFR. Performed By: #### BMP, MG1 #### [facility] [address] [address] MAGNESIUM Collected: 08/18/2017 Status: F Source: [place] 3:05 PM [facility] REPOSITORY TYPE CODE TESTS RESULT OUT OF REFERENCE UNITS RANGE LAB MG 1.7-2.3 mg/dL High Magnesium 2.4 Performed By: #### BMP, MG1 #### [facility] [address] [address] SED RATE WESTERGREN Collected: 08/18/2017 Status: F Source: [place] 3:05 PM [facility] REPOSITORY TYPE CODE TESTS RESULT OUT OF REFERENCE UNITS RANGE LAB WSR 0-20 mm/hr Sed Rate Westergren 5 Performed By: #### WSR, BMP, CRP, HFP #### [facility] [address] [address] BASIC METABOLIC PANL Collected: 08/18/2017 Status: F Source: [place] 3:05 [facility] REPOSITORY TYPE CODE TESTS RESULT OUT OF REFERENCE UNITS RANGE LAB GLU 74-99 mg/dL Glucose 76 Result Comment: The [place] [employer] (ADA) provides guidance for cutoff values for fasting glucose and random glucose. The ADA defines fasting as no caloric intake for at least 8 hours. Fas ting plasma glucose results between 100 to 125 mg/dL indicate increased risk for diabetes (prediabetes). Fasting plasma glucose results greater than or equal to 126 mg/dL meet the criteria for diagnosis of diabetes. In the absence of unequivocal hyperglycemia, results should be confirmed by repeat testing. In a patient with classic symptoms of hyperglycemia or hyperglycemic crisis, random plasma glucose results greater than or equal to 200 mg/dL meet the criteria for diagnosis of diabetes. Reference: Standards of Medical Care in Diabetes 2016, [place] [employer]. Diabetes Care. 2016.39(Suppl 1). LAB BUN 7-21 mg/dL BUN 12 LAB CRET 0.58-0.96 mg/dL Creatinine 0.78 LAB NA 136-144 mmol/L Sodium 137 LAB K 3.7-5.1 mmol/L Potassium Low 3.6 LAB CL 97-105 mmol/L Chloride 102 LAB CO2 22-30 mmol/L CO2 24 LAB AGAP 9-18 mmol/L Anion Gap 11 LAB CA 8.5-10.2 mg/dL Calcium, Total 9.1 LAB GFRAA eGFR- Amer. >60 LAB GFRNAA . eGFR-All Other Races >60 Result Comment: eGFR (Estimated GFR) Units of measure: mL/min/1.73 meters squared eGFR is derived from the reexpressed MDRD Study equation using the following parameters: serum creatinine, age, gender and race. The creatinine assay has been calibrated to be traceable to IDMS. An eGFR <60 mL/min/1.73m2 for >3 months is consistent with chronic kidney disease. Refer to KDOQI guidelines for clinical interpretation. In patients with unstable renal function, e.g. those with acute kidney injury, the eGFR may not accurately reflect actual GFR. Performed By: #### WSR, BMP, CRP, HFP #### [facility] [address] [id number] C-REACTIVE PROTEIN Collected: 08/18/2017 Status: F Source: [place] 3:05 PM [facility] REPOSITORY TYPE CODE TESTS RESULT OUT OF REFERENCE UNITS RANGE LAB CRP <0.9 mg/dL High C-Reactive 1.5 Protein Performed By: #### WSR, BMP, CRP, HFP #### [facility] [address] HEPATIC FUNCTN PANEL Collected: 08/18/2017 Status: F Source: [place] 3:05 [facility] REPOSITORY TYPE CODE TESTS RESULT OUT OF REFERENCE UNITS RANGE LAB ALB 3.9-4.9 g/dL Albumin 4.1 LAB TBIL 0.2-1.3 mg/dL Bilirubin, Total 0.2 LAB CBIL <0.2 mg/dL Bilirubin,Conjuga <0.2 polo LAB ALKP 32-117 U/L Alkaline Phosphatase 72 LAB AST 13-35 U/L AST 19 LAB ALT 7-38 U/L ALT 11 LAB TP 6.3-8.0 g/dL Protein, Total 7.8 Performed By: #### WSR, BMP, CRP, HFP #### [facility] [address] [address] TB BY QUANTIFERON Collected: 08/18/2017 Status: F Source: [place] 3:05 PM [facility] REPOSITORY TYPE CODE TESTS RESULT OUT OF REFERENCE UNITS RANGE LAB TBGRES Negative TB Result Negative LAB TBGUI <0.35 IU/mL TB Antigen 0.00 Response LAB TBGMIT >0.49 IU/mL Mitogen >10.00 Response LAB TBGINT Interpretation No evidence of current or previous infection with Mycobacterium tuberculosis. Performed By: #### INFTBG #### [facility] [address] [place], [place] [address] FEMUR : MIN 2 VIEWS Observed: 08/18/2017 Status: F Source: [place] 12:04 PM [facility] REPOSITORY Patient Name: KAYA ARCE STUDY: FEMUR : MIN 2 VIEWS; 08/18/2017 12:04 pm INDICATION: Signs/Symptoms: Tender mass on left thigh.. COMPARISON: None. ACCESSION NUMBER(S): [id number] ORDERING CLINICIAN: ORA JIN FINDINGS: Four views of the left femur were obtained. No evidence of acute displaced femoral fracture. Grossly intact alignment at the knee and hip joints. No focal soft tissue swelling is apparent. IMPRESSION: Unremarkable plain films of the left femur. MRI may be helpful for evaluation of soft tissues as clinically warranted. Electronically signed by: MONICA FLOWERS MD M-LT FEMUR IMPORT Observed: 08/18/2017 Status: F Source: [place] 12:00 AM [facility] REPOSITORY Images were obtained outside of [facility] [id number] NEPHROLOGY NURSE OFFICE VISIT Observed: 07/23/2017 Status: F Source: [place] RE[place] 4:04 AM [facility] REPOSITORY [facility] [address] [place] [place] [address] OFFICE VISIT Date of Service: 07/21/17 MR#: [id number] Acct: [id number] Name: KAYA ARCE Alexandro Rep #: [id number] : 1985 Provider: Maci Garcia MD Age/Sex: 31/F [place] [facility] [place]: S[place] Intake Vital Signs07/21/17 Height 5 ft 2 in 07/21/17 Weight: 176 lb 6 oz 07/21/17 Body Mass Index (BMI) 32.2 07/21/17 Blood Pressure 124/85 Intake Visit Reasons: Discuss surgical options Floor Cashier Required: No Accompanied by: mother Is patient in pain?: No Allergies eucalyptus Allergy (Mild, Verified 07/21/17 11:38) unknown latex Allergy (Mild, Verified 07/21/17 11:38) Unknown cephalexin monohydrate [From Keflex] Allergy (Verified 07/21/17 11:38) Anaphylaxis doxycycline Adverse Reaction (Verified 07/21/17 11:38) Diarrhea Medications Atenolol [Tenormin (beta Edson)] 25 mg PO DAILY 01/11/16 [History Confirmed 07/21/17] Omeprazole [Prilosec] 20 mg PO DAILY 11/30/16 [History Confirmed 07/21/17] Potassium Chloride [Klor-Con 10] 10 meq PO DAILY 03/03/17 [History Confirmed 07/21/17] cetirizine 10 mg tablet 10 mg PO QDAY 06/28/17 [History Confirmed 07/21/17] erythromycin-benzoyl peroxide 3 %-5 % topical gel 1 applic TOPICAL BID 06/28/17 [History Confirmed 07/21/17] hydrocortisone 100 mg/60 mL enema 100 mg RC QDAY 06/28/17 [History Confirmed 07/21/17] lidocaine-collagen 2 % topical gel 1 applic TOPICAL QD-TID PRN 06/28/17 [History Confirmed 07/21/17] medroxyprogesterone 5 mg tablet 10 mg PO DAILY tab 06/28/17 [History Confirmed 07/21/17] bupropion HCl XL 150 mg 24 hr tablet, extended release 150 mg PO QAM 07/21/17 [History Confirmed 07/21/17] Is last menstrual period known: Yes Last Menstral Period: 07/11/17 Post menopausal: No Patient : No : No PFSH Medical History PCOS (polycystic ovarian syndrome) (Acute) Ankylosing spondylitis (Acute) Exercise-induced asthma (Acute) Mitral regurgitation (Acute) Endometriosis (Acute) Surgical History History of (Acute) History of hernia repair (Acute) Hx of removal of ovary (Acute) Social History Smoking Status: Never smoker alcohol intake: never substance use type: does not use caffeine: Yes what type of physical activity do you participate in: walking frequency: 5-6 times per week seatbelt use: always do you feel safe at home: Yes additional social history: Single- Currently unemployed HPI Discuss surgical options: Details: KAYA ARCE is a 31 year old who presents for fu of ultrasound. she is still having pelvic pain intermittently most days. The pain signifiicantly interferes with her quality of life and she hasn't had significant change in her symptoms on the progesterone. she doesn't tolerate hormones well and has also tried this in the past with little relief. nsaids provide mild relief but do not keep her functional. she has a persistent 3 cm mildly complex ovarian cyst and has a history of significant endometriosis and scar tissue seen on previous laparoscopic oophorectomy. she also has a possible enodmetrial polyp seen on ultrasound with some intermittently heavy bleeding but pain is her major concern. Female Reproductive History Last Menstral Period: 07/11/17 Cycle Length: 21-35 Bleeding Duration: 5 Questions: Metorrhagia: No, Sexually active: Yes, Dyspareunia: Yes, PCB: No Pregancy History 1 Elective abortions Hx Para 1 Spontaneous abortions Past Pregnancies Del. DatName GA/WeeksOutcome [facility] ht en tn Unknown [place]-2 004 ROS Const Constitutional: Denies poor appetite, headache(s), fever(s), increased appetite, weight gain, weight loss or fatigue Cardio Card: Denies chest pain Resp Resp: Denies dyspnea or cough GI GI: Reports as per HPI; denies vomiting, nausea, abdominal pain or constipation : Reports as per HPI, pelvic pain, urinary urgency and urinary frequency Skin Skin/Breast: Denies breast lump, breast pain, breast skin changes or change in hair Exam Const General: cooperative, healthy appearing, comfortable, no acute distress, well developed Nutritional Appearance: average body habitus Orientation: alert [facility] Head: normal to inspection, normocephalic Neck Neck: normal visual inspection, trachea midline Thyroid: thyroid normal Resp Effort AND Inspection: normal respiratory effort GI Inspection: normal to inspection, non-distended Palpation: soft, no hepatosplenomegaly General: bladder normal to palpation External Female Exam: normal external appearance, normal appearance of the urethra Urethra: normal appearance of the urethra, normal palpation, no discharge Speculum Exam - Vagina: normal appearance of the vagina, normal vaginal discharge Speculum Exam - Cervix: normal appearance of the cervix, nontender Bimanual Exam- Vagina AND Uterus: bladder normal to palpation, No cervical tenderness, normal bimanual exam, uterine size normal, uterine shape normal, uterine mobility normal, uterine consistency normal, normal cervical palpation, uterus non-tender Bimanual Exam- Adnexa, other: normal adnexae, adnexae mobile, no adnexal masses, pelvic support normal Pelvic Support: normal Skin General: no rashes or lesions noted Assessment AND Plan Problems 1. Lower abdominal pain R10.30 2. Cyst of ovary, unspecified laterality N83.209 3. Endometriosis N80.9 refer to steeping press tender onc for diagnostic surgical evaluation possible hysterectomy, history of severe scar tissue seen on previous laparoscopy Plan due to the recommendation of her previous surgeon from her laparosocpy, recommend steeping press tender onc referral for surgical evaluation for diagnostic laparoscopy versus hysterectomy. Coding Level of Care Code Off vis,est,level 3 Diagnoses Lower abdominal pain R10.30 Abdominal location: lower abdomen, unspecified Cyst of ovary, unspecified laterality N83.209 Laterality: unspecified laterality Endometriosis N80.9 07/23/17 0404 <Electronically signed by Maci Garcia MD> Date Maci Garcia MD Cosigner Signature: Date (if applicable) CC: PROGRESS Observed: 07/12/2017 Status: COMPLETED Source: [place] 2:38 PM [facility] REPOSITORY O ID: [id number] Author: Petar Dennis Service: (none) Author Type: Physician Type: Progress Notes Filed: 07/12/2017 3:17 PM Note Text: Department of Dermatology Petar Dennis MD 07/12/2017 Last visit in Dermatology: 05/06/2017 Assessment/Plan Problem List Items Addressed This Visit Dermatology Folliculitis - Primary Current Assessment AND Plan Assessment: At present, there are mostly secondary changes from previous inflammation. The patient did have temporary response to fluconazole in the past but this may have been due to the anti-inflammatory mechanisms of the fluconazole. She hasn't really responded to topical treatments. His had sensitivity to doxycycline in the past. We discussed other anti-inflammatory options and I think it would be reasonable to try dapsone at the present. She is in the process of having her one remaining ovary evaluated, and it may need to be removed. At that time we can contemplate Accutane as a trial. PLAN: See the patient instructions for detailed information. Contact GI physician regarding use of dapsone. If approved, begin once the labs have been obtained. Relevant Medications dapsone 25 mg tablet Other Visit Diagnoses Medication monitoring encounter Relevant Orders CBC + DIFF COMP METABOLIC PANEL G6PD QUANT Patient Instructions Please contact your sales demonstrator's office and ask if it would be ok for you to be on oral dapsone. If so, start dapsone 25 mg tablets, take 2 daily. Need to get labs and receive results before starting the dapsone. Need to repeat labs every week for the first month, then contact me for further instructions. Follow-up as noted below or as needed. Petar Dennis MD This note is completed at 3:14 PM on 07/12/2017 and reflects the services provided at the time of the appointment. I agree with the Chief Complaint, ROS, and Past Histories independently gathered by the clinical product support specialist and the remaining scribed note accurately describes my personal service to the patient. E-visit Recommended Follow Up: Follow up eVisit not offered. Patient not appropriate for eVisit based on diagnosis. Chief Complaint: Patient presents with: Follow Up: Folliculitis and perioral dermatitis - Patient takes Zyrtec and aplies Nixoral and Hydrocortisone,as needed for itching, Symptoms improved when the patient was on Fluconazole Subjective and Objective HPI: Kaya Arce is a 31 year old female who presents for: Rash: Multiple inflamed papules on the inferior aspect of the face, back, chest. These are acneiform. Had some benefit with fluconazole in the past, but it got worse after she had to stop it. She did have problems with diarrhea and bleeding and seemed to have a flare of her Crohn's disease. Not sure if this was due to the fluconazole but hasn't restarted it and I agree with this. No other inciting factors for the acne. Does sometimes have scaling on the scalp which is dandruff-like and then it resolves with inflammatory papules. Mild to moderate, rarely severe in intensity. No other inciting factors. Oral steroid seemed to help a lot. Always comes back however. PAST MEDICAL HISTORY Diagnosis Date - Abnormal glandular Papanicolaou smear of cervix Abn. Pap smear (cervix) - Abnormal maternal glucose tolerance, antepartum 2003 diet controlled - Allergic rhinitis, cause unspecified Allergic rhinitis - Anal fissure - Ankylosis spondylitis - Back pain - Calculus of kidney 2007 4 stones, followed by Dr. long - Crohn's disease (HCC) - Daytime somnolence - Diaphragmatic hernia without mention of obstruction or gangrene - Endometriosis - Esophageal reflux - Fibromyalgia - Flatulence, eructation, and gas pain - gestational diabetes - Hemorrhage of rectum and anus - Hemorrhoids - Hirsutism - Hypokalemia - Irregular menses - Kidney stones - Lyme disease - PCOS (polycystic ovarian syndrome) - PMH - PAST MEDICAL HISTORY OF L4-L5 conjoined nerves affecting R leg-sees [facility] - Unspecified asthma(493.90) Current Outpatient Prescriptions on File Prior to Visit: omeprazole (PRILOSEC) 20 mg capsule TAKE 1 CAPSULE BY MOUTH ONCE DAILY. ketoconazole (NIZORAL) 2 % cream Apply 1 application to affected area once daily as needed. potassium chloride (KLOR-CON 10) 10 mEq tablet Take 1 tablet by mouth once daily. lidocaine (XYLOCAINE) 2 % jelly Apply 1 application to affected area as directed. MIRALAX / GATORADE PREP Miralax 238gm bottle and (2) 32oz bottles of Gatorade, AND 4 Dulcolax 5mg tabs - as directed per instructions diazePAM (VALIUM) 5 mg tablet Take 1 tablet by mouth once daily as needed. dexamethasone (DECADRON) 1 mg tablet Take 1 mg by mouth once daily as needed. magnesium hydroxide (MILK OF MAGNESIA) 400 mg/5 mL suspension Take 5 mL by mouth once daily as needed. atenolol (TENORMIN) 25 mg tablet Take 1 tablet by mouth once daily. docusate sodium (COLACE) 100 mg capsule Take 100 mg by mouth twice daily as needed. Simethicone (GAS FREE EXTRA STRENGTH) 125 mg cap Take 1 tablet by mouth three times daily as needed. hydrocortisone (HEMORRHOIDAL HC) 25 mg suppository 1 Suppository by RECTAL route twice daily as needed. Insert one (1) in the rectum each night before bed. Tranexamic Acid 650 mg tab Take 2 tablets by mouth three times daily as needed (until bleeding slows or stops for up to 5 days). ondansetron (ZOFRAN, HYDROCHLORIDE,) 4 mg tablet Take 4 mg by mouth every 8 hours as needed. COMPOUNDED PRESCRIPTION Apply to affected area. Nifedipine 0.3% apply to anal area twice daily. albuterol 90 mcg/actuation Aero Inhale 2 Puffs as instructed every 4 hours as needed (shortness of breath). cetirizine 10 mg tablet Take 1 tablet by mouth once daily. MULTI-VITAMIN ORAL Take by mouth once daily. 2 tablets daily betamethasone valerate 0.1 % lotion Apply 1 application to affected area twice daily as needed (for irritation on the scalp). (Patient not taking: Reported on 07/12/2017 ) tretinoin (RETIN-A) 0.025 % topical cream Apply to affected area daily at bedtime. SULFACETAMIDE SODIUM TOPICAL Apply 1 application to affected area twice daily. Azelaic Acid (FINACEA) 15 % gel Apply 1 application to affected area twice daily. (Patient not taking: Reported on 07/12/2017 ) No current facility-administered medications on file prior to visit. ROS: General: Does the patient feel generally well? No Skin: Any other skin lesions of concern? No Any other ongoing rashes or itching? No Physical Exam: The patient appeared generally well. No acute distress and non-toxic. Alert and oriented. Positive findings: The patient has numerous excoriated papules on the lower part of the face, back and the chest. No primary lesions at the present. There are a few scaly papules within the scalp as well but no substantial seborrheic scaling today. The remainder of the exam was otherwise unremarkable and included: scalp, face, eyes and eyelids, lips, neck and Chest, back. Procedure/Biopsy today: No. Intake information obtained by Cece Loving LPN Attending signature: Petar Dennis MD CNOV Observed: 07/12/2017 Status: COMPLETED Source: [place] 2:05 PM [facility] REPOSITORY Office Visit (DERMST) KAYA ARCE ([id number]) 1985 F Date Time Provider Department 07/12/17 2:05 PM PETAR DENNIS) DERMST During your visit today, we recorded the following information about you: Petar Dennis MD 07/12/2017 3:17 PM Signed Department of Dermatology Petar Dennis MD 07/12/2017 Last visit in Dermatology: 05/06/2017 Assessment/Plan Problem List Items Addressed This Visit Dermatology Folliculitis - Primary Current Assessment ANDamp; Plan Assessment: At present, there are mostly secondary changes from previous inflammation. The patient did have temporary response to fluconazole in the past but this may have been due to the anti-inflammatory mechanisms of the fluconazole. She hasn't really responded to topical treatments. His had sensitivity to doxycycline in the past. We discussed other anti-inflammatory options and I think it would be reasonable to try dapsone at the present. She is in the process of having her one remaining ovary evaluated, and it may need to be removed. At that time we can contemplate Accutane as a trial. PLAN: See the patient instructions for detailed information. Contact GI physician regarding use of dapsone. If approved, begin once the labs have been obtained. Relevant Medications dapsone 25 mg tablet Other Visit Diagnoses Medication monitoring encounter Relevant Orders CBC + DIFF COMP METABOLIC PANEL G6PD QUANT Patient Instructions Please contact your sales demonstrator's office and ask if it would be ok for you to be on oral dapsone. If so, start dapsone 25 mg tablets, take 2 daily. Need to get labs and receive results before starting the dapsone. Need to repeat labs every week for the first month, then contact me for further instructions. Follow-up as noted below or as needed. Petar Dennis MD This note is completed at 3:14 PM on 07/12/2017 and reflects the services provided at the time of the appointment. I agree with the Chief Complaint, ROS, and Past Histories independently gathered by the clinical product support specialist and the remaining scribed note accurately describes my personal service to the patient. E-visit Recommended Follow Up: Follow up eVisit not offered. Patient not appropriate for eVisit based on diagnosis. Chief Complaint: Patient presents with: Follow Up: Folliculitis and perioral dermatitis - Patient takes Zyrtec and aplies Nixoral and Hydrocortisone,as needed for itching, Symptoms improved when the patient was on Fluconazole Subjective and Objective HPI: Kaya Arce is a 31 year old female who presents for: Rash: Multiple inflamed papules on the inferior aspect of the face, back, chest. These are acneiform. Had some benefit with fluconazole in the past, but it got worse after she had to stop it. She did have problems with diarrhea and bleeding and seemed to have a flare of her Crohn's disease. Not sure if this was due to the fluconazole but hasn't restarted it and I agree with this. No other inciting factors for the acne. Does sometimes have scaling on the scalp which is dandruff-like and then it resolves with inflammatory papules. Mild to moderate, rarely severe in intensity. No other inciting factors. Oral steroid seemed to help a lot. Always comes back however. PAST MEDICAL HISTORY Diagnosis Date - Abnormal glandular Papanicolaou smear of cervix Abn. Pap smear (cervix) - Abnormal maternal glucose tolerance, antepartum 2003 diet controlled - Allergic rhinitis, cause unspecified Allergic rhinitis - Anal fissure - Ankylosis spondylitis - Back pain - Calculus of kidney 2007 4 stones, followed by Dr. long - Crohn's disease (HCC) - Daytime somnolence - Diaphragmatic hernia without mention of obstruction or gangrene - Endometriosis - Esophageal reflux - Fibromyalgia - Flatulence, eructation, and gas pain - gestational diabetes - Hemorrhage of rectum and anus - Hemorrhoids - Hirsutism - Hypokalemia - Irregular menses - Kidney stones - Lyme disease - PCOS (polycystic ovarian syndrome) - PMH - PAST MEDICAL HISTORY OF L4-L5 conjoined nerves affecting R leg-sees [facility] - Unspecified asthma(493.90) Current Outpatient Prescriptions on File Prior to Visit: omeprazole (PRILOSEC) 20 mg capsule TAKE 1 CAPSULE BY MOUTH ONCE DAILY. ketoconazole (NIZORAL) 2 % cream Apply 1 application to affected area once daily as needed. potassium chloride (KLOR-CON 10) 10 mEq tablet Take 1 tablet by mouth once daily. lidocaine (XYLOCAINE) 2 % jelly Apply 1 application to affected area as directed. MIRALAX / GATORADE PREP Miralax 238gm bottle and (2) 32oz bottles of Gatorade, ANDamp; 4 Dulcolax 5mg tabs - as directed per instructions diazePAM (VALIUM) 5 mg tablet Take 1 tablet by mouth once daily as needed. dexamethasone (DECADRON) 1 mg tablet Take 1 mg by mouth once daily as needed. magnesium hydroxide (MILK OF MAGNESIA) 400 mg/5 mL suspension Take 5 mL by mouth once daily as needed. atenolol (TENORMIN) 25 mg tablet Take 1 tablet by mouth once daily. docusate sodium (COLACE) 100 mg capsule Take 100 mg by mouth twice daily as needed. Simethicone (GAS FREE EXTRA STRENGTH) 125 mg cap Take 1 tablet by mouth three times daily as needed. hydrocortisone (HEMORRHOIDAL HC) 25 mg suppository 1 Suppository by RECTAL route twice daily as needed. Insert one (1) in the rectum each night before bed. Tranexamic Acid 650 mg tab Take 2 tablets by mouth three times daily as needed (until bleeding slows or stops for up to 5 days). ondansetron (ZOFRAN, HYDROCHLORIDE,) 4 mg tablet Take 4 mg by mouth every 8 hours as needed. COMPOUNDED PRESCRIPTION Apply to affected area. Nifedipine 0.3% apply to anal area twice daily. albuterol 90 mcg/actuation Aero Inhale 2 Puffs as instructed every 4 hours as needed (shortness of breath). cetirizine 10 mg tablet Take 1 tablet by mouth once daily. MULTI-VITAMIN ORAL Take by mouth once daily. 2 tablets daily betamethasone valerate 0.1 % lotion Apply 1 application to affected area twice daily as needed (for irritation on the scalp). (Patient not taking: Reported on 07/12/2017 ) tretinoin (RETIN-A) 0.025 % topical cream Apply to affected area daily at bedtime. SULFACETAMIDE SODIUM TOPICAL Apply 1 application to affected area twice daily. Azelaic Acid (FINACEA) 15 % gel Apply 1 application to affected area twice daily. (Patient not taking: Reported on 07/12/2017 ) No current facility-administered medications on file prior to visit. ROS: General: Does the patient feel generally well? No Skin: Any other skin lesions of concern? No Any other ongoing rashes or itching? No Physical Exam: The patient appeared generally well. No acute distress and non-toxic. Alert and oriented. Positive findings: The patient has numerous excoriated papules on the lower part of the face, back and the chest. No primary lesions at the present. There are a few scaly papules within the scalp as well but no substantial seborrheic scaling today. The remainder of the exam was otherwise unremarkable and included: scalp, face, eyes and eyelids, lips, neck and Chest, back. Procedure/Biopsy today: No. Intake information obtained by Cece Loving LPN Attending signature: MD Petar Guzman MD 07/12/2017 3:07 PM Signed Please contact your sales demonstrator's office and ask if it would be ok for you to be on oral dapsone. If so, start dapsone 25 mg tablets, take 2 daily. Need to get labs and receive results before starting the dapsone. Need to repeat labs every week for the first month, then contact me for further instructions. Petar Dennis MD 07/12/2017 3:14 PM Written Assessment: At present, there are mostly secondary changes from previous inflammation. The patient did have temporary response to fluconazole in the past but this may have been due to the anti-inflammatory mechanisms of the fluconazole. She hasn't really responded to topical treatments. His had sensitivity to doxycycline in the past. We discussed other anti-inflammatory options and I think it would be reasonable to try dapsone at the present. She is in the process of having her one remaining ovary evaluated, and it may need to be removed. At that time we can contemplate Accutane as a trial. PLAN: See the patient instructions for detailed information. Contact GI physician regarding use of dapsone. If approved, begin once the labs have been obtained. Referring Provider: PETAR DENNIS) [[id number]] Allergies As of Date: 07/12/2017 Noted Allergy Reaction BEES 06/18/2010 4 - Hives 7 - Swelling DOXYCYCLINE 09/26/2008 8 - GI Upset Comments: Not able to tolerate due to GI effects EUCALYPTUS 06/07/2007 Comments: tachycardia close airway FLEXERIL (CYCLOBENZAPRINE) 04/28/2012 1 - Mental Status Change Comments: Made patient feel worse than before KEFLEX (CEPHALEXIN) 05/09/2002 4 - Hives 10 - Anaphylaxis LATEX 08/15/2008 7 - Swelling MINOCYCLINE 03/07/2008 8 - GI Upset NSAIDS (NON-STEROIDAL ANTI-INFLAM*2015 5 - Intolerance TIZANIDINE 12/04/2010 1 - Mental Status Change Comments: Low HR, cold and clammy (subjective only) VICODIN (HYDROCODONE-ACETAMINOPHE*03/31/2010 9 - Itching nitroglycerin suppositories [Othe*01/31/2008 Date Reviewed: 07/12/2017 Reviewed by: Petar () Sonny - Fully Assessed Reason for Visit: Follow Up [171] Cmt: Folliculitis and perioral dermatitis - Patient takes Zyrtec and aplies Nixoral and Hydrocortisone,as needed for itching, Symptoms improved when the patient was on Fluconazole Reason For Visit History Recorded Primary Visit Diagnosis:Folliculitis [L73.9] Other Visit Diagnosis:Medication monitoring encounter [Z51.81] Order(s):dapsone 25 mg tabletTake 2 tablets by mouth once daily. Two (2) X 25 mg tablets = 50 mgDisp: 60 tabletRfl: 3 CBC + DIFF [SQCBCDIF] Order #: [id number] STANDING COMP METABOLIC PANEL [SQCMP] Order #: [id number] FUTURE G6PD QUANT [[id number]] Order #: [id number] FUTURE Prescriptions as of 07/12/2017 Sig: HYDROCORTISONE TOPICAL Apply to affected area. OMEPRAZOLE 20 MG CAPSULE,JACQUE* TAKE 1 CAPSULE BY MOUTH ONCE * KETOCONAZOLE 2 % TOPICAL CREAM Apply 1 application to affect* POTASSIUM CHLORIDE ER 10 MEQ * Take 1 tablet by mouth once d* LIDOCAINE 2 % MUCOSAL JELLY Apply 1 application to affect* COMPOUNDED PRESCRIPTION Miralax 238gm bottle and (2) * DIAZEPAM 5 MG TABLET Take 1 tablet by mouth once d* DEXAMETHASONE 1 MG TABLET Take 1 mg by mouth once daily* MAGNESIUM HYDROXIDE 400 MG/5 * Take 5 mL by mouth once daily* ATENOLOL 25 MG TABLET Take 1 tablet by mouth once d* DOCUSATE SODIUM 100 MG CAPSULE Take 100 mg by mouth twice da* SIMETHICONE 125 MG CAPSULE Take 1 tablet by mouth three * HYDROCORTISONE ACETATE 25 MG * 1 Suppository by RECTAL route* TRANEXAMIC ACID 650 MG TABLET Take 2 tablets by mouth three* ONDANSETRON HCL 4 MG TABLET Take 4 mg by mouth every 8 ho* COMPOUNDED PRESCRIPTION Apply to affected area. Nife* ALBUTEROL 90 MCG/ACTUATION AE* Inhale 2 Puffs as instructed * * CETIRIZINE 10 MG TABLET Take 1 tablet by mouth once d* * MULTI-VITAMIN ORAL Take by mouth once daily. 2 * DAPSONE 25 MG TABLET Take 2 tablets by mouth once * Medication notes this encounter TRETINOIN 0.025 % TOPICAL CREAM >> Cece Miroslava [facility] 07/12/2017 2:35 PM >> OLEY, CECE SHOEMAKER CUSTOM WedJul 12, 2017 2:35 PM Not Using SULFACETAMIDE SODIUM TOPICAL >> Cece Oley [facility] 07/12/2017 2:35 PM >> BECCA LOVINGLE [facility] WedJul 12, 2017 2:35 PM Not Using Problem List As Of Date 07/12/2017 Noted Resolved PAIN IN JOINT, LOWER LEG [M25.569] INVALID FOR*01/24/2008 ASTHMA UNSPECIFIED [J45.909] INVALID FOR* Priority: Mild CHRONIC RHINITIS [J31.0] INVALID FOR* DYSMETABOLIC SYNDROME X [E88.81] INVALID FOR* Priority: Moderate More... 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 IMPAIRED FASTING GLUCOSE [R73.01] INVALID FOR* Priority: Mild ABN GLUCOSE-ANTEPARTUM [O99.810] 08/01/2008 More... THROMBOS HEMORRHOIDS NOS [K64.5] INVALID FOR* Priority: Mild More... Routine general medical examination at a health*INVALID FOR*11/21/2011 Priority: Mild Class: Chronic More... ROUTINE MELT HELPER EXAMINATION [Z01.419] INVALID FOR*08/15/2008 Class: Chronic More... HX OF CERVICAL DYSPLASIA [Z87.410] INVALID FOR* More... ANXIETY STATE NOS [F41.1] INVALID FOR* Priority: Moderate More... PREV DELIVERY NOS-ANTEPART [O34.219] INVALID FOR* POOR GRTH-ANTEPART [O36.5990] INVALID FOR*09/26/2008 Routine gynecological examination [Z01.419] INVALID FOR*11/21/2011 Class: Chronic More... HIDRADENITIS [L73.2] INVALID FOR* Priority: Moderate More... 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 Pyoderma, unspecified [L08.0] INVALID FOR*05/21/2016 Pain in joint, lower leg [M25.569] INVALID FOR* Headache [R51] INVALID FOR* Lumbago [M54.5] INVALID FOR* Spasm of muscle [M62.838] INVALID FOR* Adrenal insufficiency [E27.40] Muscle spasm [M62.838] INVALID FOR* Calculus of kidney [N20.0] INVALID FOR* Lyme disease [A69.20] INVALID FOR* Seborrheic Dermatitis [L21.8] INVALID FOR* Xerosis cutis [L85.3] INVALID FOR*05/21/2016 Calculus of ureter [N20.1] INVALID FOR* Pyoderma [L08.0] INVALID FOR*05/21/2016 Pruritus [L29.9] INVALID FOR*05/21/2016 Monilial vulvovaginitis [B37.3] INVALID FOR* Migraine without aura, with intractable migrain*INVALID FOR* Microhematuria [R31.29] INVALID FOR* Flank pain [R10.9] INVALID FOR* Female stress incontinence [N39.3] INVALID FOR* Menstrual irregularity [N92.6] INVALID FOR* Palpitations [R00.2] INVALID FOR* Backache, unspecified [M54.9] INVALID FOR* Anorectal polyp [K62.0, K62.1] INVALID FOR* Low back pain [M54.5] INVALID FOR* Buttock pain [M79.1] INVALID FOR* Lumbosacral neuritis [M54.17] INVALID FOR* Gross hematuria [R31.0] INVALID FOR* History of kidney stones [Z87.442] INVALID FOR* Straining on urination [R39.16] INVALID FOR* Hesitancy [R39.11] INVALID FOR* Difficulty voiding [R39.198] INVALID FOR* Chronic pelvic pain in female [R10.2, G89.29] INVALID FOR* Endometriosis [N80.9] INVALID FOR* Other instructions from your clinician: Please contact your sales demonstrator's office and ask if it would be ok for you to be on oral dapsone. If so, start dapsone 25 mg tablets, take 2 daily. Need to get labs and receive results before starting the dapsone. Need to repeat labs every week for the first month, then contact me for further instructions. Prescriptions ordered this encounter Disp Refills Start End DAPSONE 25 MG TABLET 60 t* 3 07/12/2017 Route: ORAL Sig: Take 2 tablets by mouth once daily. Two (2) X 25 mg tablets = 50 mg Medications Discontinued During This Encounter betamethasone valerate 0.1 % lotion 60 mL 1 04/05/2017 07/12/2017 Route: TOPICAL Sig: Apply 1 application to affected area twice daily as needed (for irritation on the scalp). Patient not taking: Reported on 07/12/2017 Disc: Reason for discontinue is not on file. Azelaic Acid (FINACEA) 15 % gel 45 g 6 12/15/2016 07/12/2017 Route: TOPICAL Sig: Apply 1 application to affected area twice daily. Patient not taking: Reported on 07/12/2017 Disc: Reason for discontinue is not on file. tretinoin (RETIN-A) 0.025 % topical * 07/12/2017 Class: Historical Med Route: TOPICAL Sig: Apply to affected area daily at bedtime. Disc: Reason for discontinue is not on file. SULFACETAMIDE SODIUM TOPICAL 07/12/2017 Class: Historical Med Route: TOPICAL Sig: Apply 1 application to affected area twice daily. Disc: Reason for discontinue is not on file. Encounter Status:Closed by PETAR DENNIS MD on 07/12/17 URINE Observed: 07/06/2017 Status: F Source: UN[facility]ERS[facility] CULTURE,BACTERIAL 3:26 PM [facility] REPOSITORY PATIENT: KAYA ARCE LOCATION: [facility] [place] BILL#: [id number] : 81 AGE: SEX: F ORDERED BY: ALVERTO CRUZ SOURCE: URINE COLLECTED: 07/06/17 15:26 ANTIBIOTICS AT JENIFFER.: RECEIVED : 07/07/17 08:36 SITE: Clean Catch/Voided R E S U L T S URINE CULTURE,BACTERIAL FINAL 07/08/17 06:44 NO SIGNIFICANT GROWTH. Performed By: #### URINC #### [facility] [address] [place] [address] CBC-COMPLETE BLOOD CNT Collected: 07/02/2017 Status: F Source: [place] NO DIFF 1:46 PM [facility] REPOSITORY Order Comment: SEND RESULTS OF CMP TO AND GRABIEL. SEND RESULTS OF CRP,CBC,AND SED TO GRABIEL. SEND RESULTS OF TESTOSTERONE TOTAL TO TYPE CODE TESTS RESULT OUT OF RANGE REFERENCE UNITS LAB L100.1000 4.4-11.0 K/mm3 Normal WBC 8.7 LAB L100.1200 4.2-5.4 M/mm3 Normal RBC 4.57 LAB L100.1300 12.0-15.0 g/dl Normal HGB 12.8 LAB L100.1400 37-47 % Normal HCT 39.0 LAB L100.1500 81-99 fL Normal MCV 85.3 LAB L100.1600 27.0-32.0 pg Normal MCH 28.0 LAB L100.1700 32-36 g/gl Normal MCHC 32.8 LAB L100.1810 11.6-14.6 % Normal RDW CV 13.2 LAB L100.1820 35.1-43.9 fl Normal RDW SD 40.6 LAB L100.1900 150-450 K/mm3 Normal PLT 324 LAB L100.2000 6.2-12.0 fl Normal MPV 9.1 Performed By: #### L100.0500, L101.9900 #### [facility] [address] [place], [address] ERYTHROCYTE SED RATE Collected: 07/02/2017 Status: F Source: [place] 1:46 PM [facility] REPOSITORY Order Comment: SEND RESULTS OF CMP TO AND GRABIEL. SEND RESULTS OF CRP,CBC,AND SED TO GRABIEL. SEND RESULTS OF TESTOSTERONE TOTAL TO TYPE CODE TESTS RESULT OUT OF RANGE REFERENCE UNITS LAB L102.0000 0-20 mm/hr Normal SED RATE 13 Performed By: #### L100.0500, L101.9900 #### [facility] [address] [place], [place], [address] TESTOSTERONE, SERUM TOTAL Collected: 07/02/2017 Status: F Source: [place] 1:46 PM [facility] REPOSITORY Order Comment: SEND RESULTS OF CMP TO AND GRABIEL. SEND RESULTS OF CRP,CBC,AND SED TO GRABIEL. SEND RESULTS OF TESTOSTERONE TOTAL TO TYPE CODE TESTS RESULT OUT OF REFERENCE UNITS RANGE LAB L509.3000 ng/dL Testosterone Normal 25.36 Result Comment: NORMAL REFERENCE RANGES MALE AGE <50 123.06 - 813.86 ng/dL MALE AGE >50 89.98 - 780.10 ng/dL FEMALE PREMENOPAUSE AGE 21 - 60 9.01 - 47.94 ng/dL FEMALE POSTMENOPAUSE AGE 45 - 89 <7.00 - 45.62 ng/dL REFERENCE RANGE AND METHODOLOGY CHANGED 03/17/2017 Performed By: #### L509.3000 #### [facility] [address] [facility]. [place], [address] COMPREHENSIVE METABOLIC Collected: 07/02/2017 Status: F Source: ELIZABETH BUTT 1:44 PM [facility] REPOSITORY Order Comment: SEND RESULTS OF CMP TO AND GRABIEL. SEND RESULTS OF CRP,CBC,AND SED TO GRABIEL. SEND RESULTS OF TESTOSTERONE TOTAL TO TYPE CODE TESTS RESULT OUT OF RANGE REFERENCE UNITS LAB L501.0100 74-106 mg/dL High GLU 107 Result Comment: Fasting Glucose result from 100 to 125 mg/dL suggests IMPAIRED HOMEOSTASIS per A.D.A. criteria. Please note revised GLUCOSE reference range effective 2017. LAB L501.1000 7-18 mg/dL Normal BUN 9 LAB L501.1100 0.55-1.02 mg/dL Normal CREAT,SERUM 0.77 Result Comment: The validity of the calculated GFR AND GFRAA in patients over 70 years has not been determined. Clinical correlation is essential. LAB L501.1110 >60 mL/min Normal EST GFR 91 Result Comment: Non- GFR Calc LAB L501.1115 >60 mL/min Normal EST GFR - AA 110 Result Comment: GFR Calc LAB L501.1300 10-20 RATIO Normal BUN/CRE 11.6 LAB L501.1500 6.4-8.2 g/dL T Normal PROT 7.2 LAB L501.1800 3.2-5.0 g/dL Normal ALB 3.3 LAB L501.1950 2.2-4.2 g/dL Normal GLOB 3.9 LAB L501.2000 0.9-2.4 RATIO Low A/G 0.8 LAB L501.2200 8.5-10.1 mg/dL Low CA 8.4 LAB L501.4100 15-37 U/L Normal AST 18 LAB L501.4305 45-117 U/L Normal ALK P 92 LAB L501.4405 13-56 U/L Normal ALT 21 Result Comment: Please note revised ALT reference range effective 2017. LAB L501.4600 0.20-1.00 mg/dL Normal T BILI 0.30 LAB L501.5300 136-145 mmol/L Normal NA 142 LAB L501.5600 3.5-5.1 mmol/L Normal K 4.2 LAB L501.5900 98-107 mmol/L Normal CL 107 LAB L501.6100 21.0-32.0 mmol/L Normal CO2 25.0 LAB L501.6200 5-15 Normal GAP 10 Performed By: #### L500.4050, L501.6710, L3100.5125, L3100.5420, L3300.1750 #### [facility] [address] [place], [place], [id number] CRP Collected: 07/02/2017 Status: F Source: ELIZ[place]ETH 1:44 PM [facility] REPOSITORY Order Comment: SEND RESULTS OF CMP TO AND GRABIEL. SEND RESULTS OF CRP,CBC,AND SED TO GRABIEL. SEND RESULTS OF TESTOSTERONE TOTAL TO TYPE CODE TESTS RESULT OUT OF RANGE REFERENCE UNITS LAB L501.6710 0.0-3.0 mg/L High 12.10 C-REACTIVE PROT Result Comment: C-Reactive Protein (CRP) provides useful information for the diagnosis, therapy and monitoring of inflammatory processes and associated diseases. For the evaluation of Relative Risk for Cardiovascular Disease, a High Sensitivity CRP (HSCRP) should be ordered. Performed By: #### L500.4050, L501.6710, L3100.5125, L3100.5420, L3300.1750 #### [facility] [address] [facility] [place], [place], [id number] FOLLICLE STIMULATING Collected: 07/02/2017 Status: F Source: ELIZABETH HORMONE 1:44 PM [facility] REPOSITORY Order Comment: SEND RESULTS OF CMP TO AND GRABIEL. SEND RESULTS OF CRP,CBC,AND SED TO GRABIEL. SEND RESULTS OF TESTOSTERONE TOTAL TO TYPE CODE TESTS RESULT OUT OF RANGE REFERENCE UNITS LAB L3100.5125 mIU/mL Normal FSH 6.6 Result Comment: NORMAL REFERENCE RANGES FEMALE FOLLICULAR 2.3 - 12.6 mIU/mL MID-CYCLE PEAK 5.2 - 17.5 mIU/mL LUTEAL 1.7 - 12.9 mIU/mL POST-MENOPAUSAL ON MHT 5.9 - 72.8 mIU/mL NOT ON MHT 12.7 - 132.2 mlU/mL MALE 0.7 - 10.8 mIU/mL NEW TEST METHOD AND REFERENCE RANGES AUGUST 17, 2011 Performed By: #### L500.4050, L501.6710, L3100.5125, L3100.5420, L3300.1750 #### [facility] [address] [place], [place], [address] PROLACTIN Collected: 07/02/2017 Status: F Source: [place] 1:44 PM [facility] REPOSITORY Order Comment: SEND RESULTS OF CMP TO AND GRABIEL. SEND RESULTS OF CRP,CBC,AND SED TO GRABIEL. SEND RESULTS OF TESTOSTERONE TOTAL TO TYPE CODE TESTS RESULT OUT OF RANGE REFERENCE UNITS LAB L3100.5420 ng/mL Normal PROLACTIN 28.6 Result Comment: NORMAL REFERENCE RANGES FEMALE NON- 2.2 - 30.3 ng/mL 8.1 - 347.6 ng/mL POST-MENOPAUSAL 0.7 - 31.5 ng/mL MALE 2.5 - 17.4 ng/mL NEW TEST METHOD AND REFERENCE RANGES AUGUST 17, 2011 Performed By: #### L500.4050, L501.6710, L3100.5125, L3100.5420, L3300.1750 #### [facility] [address] [facility] [place], [place], [address] [phone] ESTRADIOL Collected: 07/02/2017 Status: F Source: [place] 1:44 PM [facility] REPOSITORY Order Comment: SEND RESULTS OF CMP TO AND GRABIEL. SEND RESULTS OF CRP,CBC,AND SED TO GRABIEL. SEND RESULTS OF TESTOSTERONE TOTAL TO TYPE CODE TESTS RESULT OUT OF RANGE REFERENCE UNITS LAB L3300.1750 pg/mL Normal ESTRADIOL 82.6 Result Comment: NORMAL REFERENCE RANGES FEMALE FOLLICULAR 21.4 - 164.8 pg/mL MID-CYCLE PEAK 49.9 - 367.2 pg/mL LUTEAL 40.2 - 259.0 pg/mL POST-MENOPAUSAL ON MHT <11.0 - 462.1 pg/mL NOT ON MHT <11.0 - 58.3 pg/mL MALE <11.0 - 52.5 pg/mL NOTE: [facility] HAS CONFIRMED THE DRUG FULVETRANT (FASLODEX) MAY CAUSE FALSELY ELEVATED ESTRADIOL RESULTS WHEN USING THIS TEST METHOD. IF PATIENT IS TAKING FULVESTRANT AN ALTERNATIVE METHOD SHOULD BE USED TO DETERMINE ESTRADIOL CONCENTRATION. Performed By: #### L500.4050, L501.6710, L3100.5125, L3100.5420, L3300.1750 #### [facility] [address] [place], [address] DHEA SULFATE Collected: 07/02/2017 Status: F Source: [place] 1:44 PM [facility] REPOSITORY Order Comment: SEND RESULTS OF CMP TO AND GRABIEL. SEND RESULTS OF CRP,CBC,AND SED TO GRABIEL. SEND RESULTS OF TESTOSTERONE TOTAL TO Has Patient had Radioactive Injection for X-ray?: N TYPE CODE TESTS RESULT OUT OF RANGE REFERENCE UNITS LAB L3300.1500 84.8-378.0 ug/dL Normal DHEA SULF 169.7 4020 Performed By: #### L3300.1500, L3400.4800 #### [facility] (refer to report for specific site) refer to report for address and phone number TESTOSTERONE FREE Collected: 07/02/2017 Status: F Source: [place] 1:44 PM [facility] REPOSITORY Order Comment: SEND RESULTS OF CMP TO AND GRABIEL. SEND RESULTS OF CRP,CBC,AND SED TO GRABIEL. SEND RESULTS OF TESTOSTERONE TOTAL TO Has Patient had Radioactive Injection for X-ray?: N TYPE CODE TESTS RESULT OUT OF RANGE REFERENCE UNITS LAB L3400.4800 0.0-4.2 pg/mL Normal TEST FR 2.2 [id number] Result Comment: Performed at: [facility] [id number] Assistant Finance Director: El Case PhD, Phone: [phone] Performed at: - [facility] [id number] Assistant Finance Director: Benedicto Naqvi MD, Phone: [phone] Performed By: #### L3300.1500, L3400.4800 #### [facility] (refer to report for specific site) refer to report for address and phone number PELVIC (NON ) Observed: 07/02/2017 Status: F Source: ELIZ[place]ETH 1:41 PM [facility] REPOSITORY [facility] Services [address] [place] [address] Pelvic (Non ) MR#: [id number] Acct: [id number] Name: KAYA ARCE Rep #: [id number] : 1985 F 31 From: Zbigniew Crocker DO PCP: Rudy Curran DO Status: REG CLI Study: Pelvic (Non ) Date of Exam: 07/02/17 Exam# [id number] Ordering Dr: Maci Garcia MD STUDY: ULTRASOUND OF THE FEMALE PELVIS - COMPLETE REASON FOR EXAM: Female, 31 years old. Ovarian cyst LMP: 06/22/2017 TECHNIQUE: Transabdominal and Transvaginal TECHNICAL QUALITY: Adequate. COMPARISON: 11/28/2016 ultrasound report FINDINGS: The uterus is anteverted and is in a midline position. The uterus measures 10.5 x 5.3 x 3.6 cm. Normal uterine cervix. The endometrium measures 7 mm in thickness, and is hyperechoic. There is a small hyperechoic region within the endometrium measuring 4 x 3 mm. This could represent a tiny endometrial polyp. There is no demonstrated myometrial mass. I.U.D. - The patient does not have an I.U.D. The right ovary is visualized. The right ovary measures 4.6 x 4 x 3.1 cm. There is a 3.2 x 3.1 x 2.6 cm right ovarian cyst. There is no visualized right adnexal mass or complex lesion. There is normal arterial and normal venous vascularity. The left ovary has been removed. There is no fluid in the cul-de-sac. The bladder is minimally distended at the time of scanning. Polycystic ovary disease: No. US/Pelvic (Non ) IMPRESSION: Right ovarian cyst. Small hyperechoic endometrial lesion may represent an endometrial polyp. The left ovary has been removed. Electronically Signed: Zbigniew DO Obi at 8:32 EDT Tel , Service support , CC: Rudy Curran DO; Maci Garcia MD Profiler Hand: Signed NEPHROLOGY NURSE OFFICE VISIT Observed: 06/28/2017 Status: F Source: [place] REPORT 9:17 PM [facility] REPOSITORY [facility] [address] [place] [address]. [address] [place] [address] OFFICE VISIT Date of Service: 06/28/17 MR#: [id number] Acct: [id number] Name: KAYA ARCE Rep #: [id number] : 1985 Provider: Maci Garcia MD Age/Sex: 31/F [place] [facility] [place]: Signed Intake Vital Signs06/28/17 Height 5 ft 2 in 06/28/17 Weight: 176 lb 4 oz 06/28/17 Body Mass Index (BMI) 32.2 06/28/17 Blood Pressure 111/70 Intake Visit Reasons: Med Check- progesterone Floor Cashier Required: No Is patient in pain?: Yes Pain scale (1-10): 3 Allergies eucalyptus Allergy (Mild, Verified 06/28/17 11:48) unknown latex Allergy (Mild, Verified 06/28/17 11:48) Unknown cephalexin monohydrate [From Keflex] Allergy (Verified 06/28/17 11:48) Anaphylaxis doxycycline Adverse Reaction (Verified 06/28/17 11:48) Diarrhea Medications Atenolol [Tenormin (beta Edson)] 25 mg PO DAILY 01/11/16 [History Confirmed 06/28/17] Omeprazole [Prilosec] 20 mg PO DAILY 11/30/16 [History Confirmed 06/28/17] Potassium Chloride [Klor-Con 10] 10 meq PO DAILY 03/03/17 [History Confirmed 06/28/17] azelaic acid 15 % topical gel TOPICAL 30 Days #50 05/27/17 [History Confirmed 06/28/17] fluconazole 200 mg tablet PO 21 Days #21 05/27/17 [History Confirmed 06/28/17] cetirizine 10 mg tablet 10 mg PO QDAY 06/28/17 [History Confirmed 06/28/17] erythromycin-benzoyl peroxide 3 %-5 % topical gel 1 applic TOPICAL BID 06/28/17 [History Confirmed 06/28/17] hydrocortisone 100 mg/60 mL enema 100 mg RC QDAY 06/28/17 [History Confirmed 06/28/17] lidocaine-collagen 2 % topical gel 1 applic TOPICAL QD-TID PRN 06/28/17 [History Confirmed 06/28/17] medroxyprogesterone 5 mg tablet 10 mg PO DAILY tab 06/28/17 [History Confirmed 06/28/17] Post menopausal: No Patient : No PFSH Surgical History History of (Acute) History of hernia repair (Acute) Hx of removal of ovary (Acute) Social History Smoking Status: Never smoker alcohol intake: never HPI Med Check- progesterone: Details: KAYA ARCE is a 31 year old who presents for med fu, progesterone for 10 days out of the month, and then for the last few months she has only had mild brown discharge afterwards with significant cramping. she was on progesterone in the past aygestin that gave her constipation. she is also in the process of getting another colonoscopy for an IBD workup. she had a ct scan that showed an ovarian cyst recently. ROS Const Constitutional: Reports system reviewed and no additional complaints, except as docu GI GI: Reports as per HPI : Reports as per HPI Exam Const General: cooperative, healthy appearing, comfortable, no acute distress GI Inspection: normal to inspection Palpation: soft, nontender Assessment AND Plan Problems 1. PCOS (polycystic ovarian syndrome) E28.2 2. Cyst of ovary, unspecified laterality N83.209 Plan recommend repeating hormone values, consider ocp or mirena iud. us ordered to evaluate ovarian cyst. Orders Orders: Coding Level of Care Code Off vis,est,level 4 Diagnoses PCOS (polycystic ovarian syndrome) E28.2 Cyst of ovary, unspecified laterality N83.209 Laterality: unspecified laterality 06/28/172116 <Electronically signed by Maci Garcia MD> Date Maci Oh Signature: Date (if applicable) CC: CORTISOL SERUM Collected: 06/18/2017 Status: F Source: [place] 8:07 AM [facility] REPOSITORY Order Comment: BASELINE OR POST MEDICATION STIMULATION?: Baseline TYPE CODE TESTS RESULT OUT OF REFERENCE UNITS RANGE LAB L509.6000 3.09-22.40 ug/dL Low CORTISOL 1.10 Result Comment: Adult (AM) 4.30 - 22.40 ug/dL Adult (PM) 3.09 - 16.66 ug/dL Performed By: #### L509.6000 #### [facility] [address] [place], [address] CBC Collected: 06/01/2017 Status: F Source: [facility] 12:20 PM [facility] REPOSITORY TYPE CODE TESTS RESULT OUT OF REFERENCE UNITS RANGE LAB WBC(LOINC) 4.60-10.80 10 3/mcL WBC 7.00 LAB RBCCT(LOINC 4.20-5.40 10 6/mcL ) RBC 4.87 LAB HGB(LOINC) 12.0-16.0 G/dL Hgb 13.1 LAB HCT(LOINC) 37.0-47.0 % Hct 40.3 LAB MCV(LOINC) 80.0-94.0 fL MCV 82.7 LAB MCH(LOINC) 27.0-31.2 pg Low MCH 26.8 LAB MCHC(LOINC) 33.0-37.0 G/dL Low MCHC 32.4 LAB RDW(LOINC) 11.5-14.5 % RDW 13.8 LAB PLT(LOINC) 130-400 10 3/mcL Platelet 274 LAB MPV(LOINC) 7.4-10.4 fL MPV 7.9 Performed By: #### CBC, ADIFF, ANEU, LIPID, CMP, GFR, TSH, FT4, FT3, A1C #### [address] [address] #### VIDH, B12, FOL, ACTH, MCRSO #### [address] [address] .AUTO DIFF Collected: 06/01/2017 Status: F Source: [facility] 12:20 PM [facility] REPOSITORY TYPE CODE TESTS RESULT OUT OF REFERENCE UNITS RANGE LAB KARLEE(LOINC) 37.0-80.0 % Neutrophil % 52.7 LAB LYM(LOINC) 10.0-50.0 % Lymphocyte % 39.9 LAB MON(LOINC) 1.7-13.0 % Monocyte % 5.3 LAB EO(LOINC) 0.0-7.0 % Eosinophil % 1.6 LAB BAS(LOINC) 0.0-2.5 % Basophil % 0.5 LAB ABLYM(LOIN 0.77-3.85 10 3/mcL C) Lymphocyte, 2.80 Absolute LAB FERMIN(LOINC 0.15-1.00 10 3/mcL ) Monocyte, 0.40 Absolute LAB AEOS(LOINC 0.00-0.40 10 3/mcL ) Eosinophil, 0.10 Absolute LAB ABAS(LOINC 0.00-0.19 10 3/mcL ) Basophil, 0.00 Absolute Performed By: #### CBC, ADIFF, ANEU, LIPID, CMP, GFR, TSH, FT4, FT3, A1C #### [address] [address] #### VIDH, B12, FOL, ACTH, MCRSO #### [address] [address] .NEUABS Collected: 06/01/2017 Status: F Source: [facility] 12:20 PM [facility] REPOSITORY TYPE CODE TESTS RESULT OUT OF REFERENCE UNITS RANGE LAB ANEU(LOINC) 2.85-6.16 10 3/mcL Neutrophil, 3.70 Absolute Performed By: #### CBC, ADIFF, ANEU, LIPID, CMP, GFR, TSH, FT4, FT3, A1C #### [address] [address] #### VIDH, B12, FOL, ACTH, MCRSO #### [address] [address] LIPID Collected: 06/01/2017 Status: F Source: [facility] 12:20 PM [facility] REPOSITORY TYPE CODE TESTS RESULT OUT OF REFERENCE UNITS RANGE LAB CHOL(LOINC 131-200 mg/dL ) Cholesterol High 223 Result Comment: Cholesterol Reference Interval: Less than 200 Desirable 200-239 Borderline high risk 240 and above High risk LAB TRIG(LOINC) 40-150 mg/dL Triglycerides High 256 Result Comment: Triglyceride Reference Interval: Less than 150 Normal 150-199 Borderline high risk 200-499 High risk 500 or higher Very high risk LAB HD(LOINC) 35-90 mg/dL HDL Cholesterol 42 Result Comment: HDL Reference Interval: Less than 40 Low - high risk 60 or above Optimal/lowers risk LAB LDL(LOINC) 0-130 mg/dL LDL Cholesterol 130 Result Comment: LDL is a calculated result and requires a 12-hr fast. LDL Reference Interval: Less than 100 Optimal 100-129 Near or above optimal 130-159 Borderline high risk 160-189 High risk 190 and above Very high risk Performed By: #### CBC, ADIFF, ANEU, LIPID, CMP, GFR, TSH, FT4, FT3, A1C #### [address] [address] #### VIDH, B12, FOL, ACTH, MCRSO #### [address] [address] CMP Collected: 06/01/2017 Status: F Source: [facility] 12:20 [facility] REPOSITORY TYPE CODE TESTS RESULT OUT OF REFERENCE UNITS RANGE LAB 1547-9 70-105 mg/dL GLUCOSE 84 LAB NA(LOINC) 136-146 mEq/L Sodium Level 140 LAB K(LOINC) 3.5-5.1 mEq/L Potassium Level 3.6 LAB CL(LOINC) 98-107 mEq/L Chloride 102 LAB CO2(LOINC) 22-29 mEq/L CO2 27 LAB EBAL(LOINC mEq/L ) Electrolyte Balance 11.0 LAB BUN(LOINC) 7.0-18.0 mg/dL BUN 9.1 LAB CRE(LOINC) 0.6-1.2 mg/dL Creatinine Lvl (s) 0.7 LAB BC(LOINC) 7-27 ratio BUN/Creatinine 13 Ratio LAB CA(LOINC) 8.4-10.2 mg/dL Calcium Lvl 9.7 LAB PROT(LOINC 6.0-8.3 G/dL ) Total Protein 8.2 LAB ALB(LOINC) 3.5-5.0 G/dL Albumin High Level 5.1 LAB GLB(LOINC) G/dL Globulin 3.1 LAB AG(LOINC) 1.1-2.5 ratio A/G Ratio 1.6 LAB BILT(LOINC 0.2-1.0 mg/dL ) Bili Total 0.3 LAB AP(LOINC) 40-135 IU/L Alk Phos 99 LAB AST(LOINC) 10-40 IU/L AST/SGOT 22 LAB ALT(LOINC) 10-35 IU/L ALT/SGPT 22 Performed By: #### CBC, ADIFF, ANEU, LIPID, CMP, GFR, TSH, FT4, FT3, A1C #### [id number] [place], [place] [address] #### VIDH, B12, FOL, ACTH, MCRSO #### [address] [address] .GFR Collected: 06/01/2017 Status: F Source: [facility] 12:20 PM [facility] REPOSITORY TYPE CODE TESTS RESULT OUT OF REFERENCE UNITS RANGE LAB GFRAA(LOINC ml/min/1.73 ) sqm GFR 116 Afghan Result Comment: GFR Population mean for , Non- Americans Ages 20-29 = 116 mL/min/1.73 sq.m. Ages 30-39 = 107 mL/min/1.73 sq.m. Ages 40-49 = 99 mL/min/1.73 sq.m. Ages 50-59 = 93 mL/min/1.73 sq.m. Ages 60-69 = 85 mL/min/1.73 sq.m. Ages 70+ = 75 mL/min/1.73 sq.m. Chronic Kidney Disease: Less than 60 mL/min/1.73 square meters End Stage Renal Disease: Less than 15 mL/min/1.73 square meters LAB GFRNO(LOINC) ml/min/1.73sqm GFR Non- >60 Result Comment: GFR Population mean for , Non- Americans Ages 20-29 = 116 mL/min/1.73 sq.m. Ages 30-39 = 107 mL/min/1.73 sq.m. Ages 40-49 = 99 mL/min/1.73 sq.m. Ages 50-59 = 93 mL/min/1.73 sq.m. Ages 60-69 = 85 mL/min/1.73 sq.m. Ages 70+ = 75 mL/min/1.73 sq.m. Chronic Kidney Disease: Less than 60 mL/min/1.73 square meters End Stage Renal Disease: Less than 15 mL/min/1.73 square meters Performed By: #### CBC, ADIFF, ANEU, LIPID, CMP, GFR, TSH, FT4, FT3, A1C #### [address] [address] #### VIDH, B12, FOL, ACTH, MCRSO #### [address] [address] TSH Collected: 06/01/2017 Status: F Source: [facility] 12:20 [facility] REPOSITORY TYPE CODE TESTS RESULT OUT OF RANGE REFERENCE UNITS LAB TSH(LOINC) 0.27-4.20 mcIU/mL TSH 0.74 Performed By: #### CBC, ADIFF, ANEU, LIPID, CMP, GFR, TSH, FT4, FT3, A1C #### [address] [address] #### VIDH, B12, FOL, ACTH, MCRSO #### [address] [address] FT4 Collected: 06/01/2017 Status: F Source: [facility] 12:20 [facility] REPOSITORY TYPE CODE TESTS RESULT OUT OF RANGE REFERENCE UNITS LAB FT4(LOINC) 0.6-1.7 ng/mL Free T4 1.0 Performed By: #### CBC, ADIFF, ANEU, LIPID, CMP, GFR, TSH, FT4, FT3, A1C #### [address] [address] #### VIDH, B12, FOL, ACTH, MCRSO #### [address] [address] FT3 Collected: 06/01/2017 Status: F Source: [facility] 12:20 [facility] REPOSITORY TYPE CODE TESTS RESULT OUT OF RANGE REFERENCE UNITS LAB FT3(LOINC) 2.3-4.0 pg/mL Free T3 3.3 Performed By: #### CBC, ADIFF, ANEU, LIPID, CMP, GFR, TSH, FT4, FT3, A1C #### [address] [address] #### VIDH, B12, FOL, ACTH, MCRSO #### [place] [address] A1C Collected: 06/01/2017 Status: F Source: [facility] 12:20 [facility] REPOSITORY TYPE CODE TESTS RESULT OUT OF RANGE REFERENCE UNITS LAB A1C(LOINC) 4.8-5.9 % Hgb A1c 5.4 Performed By: #### CBC, ADIFF, ANEU, LIPID, CMP, GFR, TSH, FT4, FT3, A1C #### [address] [address] #### VIDH, B12, FOL, ACTH, MCRSO #### [place] [address] VIDH Collected: 06/01/2017 Status: F Source: [facility] 12:20 [facility] REPOSITORY TYPE CODE TESTS RESULT OUT OF RANGE REFERENCE UNITS LAB VIDH(LOINC) ng/mL Vit. D 43 25-Hydroxy Result Comment: Interpretive Values Based on Total 25(OH)D: Severe Deficiency <20 ng/mL Mild to Moderate Deficiency 20-30 ng/mL Optimum Levels 30-100 ng/mL Toxicity Possible >100 ng/mL Performed By: #### CBC, ADIFF, ANEU, LIPID, CMP, GFR, TSH, FT4, FT3, A1C #### [address] [address] #### VIDH, B12, FOL, ACTH, MCRSO #### [place] [address] B12 Collected: 06/01/2017 Status: F Source: [facility] 12:20 PM [facility] REPOSITORY TYPE CODE TESTS RESULT OUT OF REFERENCE UNITS RANGE LAB B12(LOINC) 211-911 pg/mL Vitamin B12 600 Lvl Performed By: #### CBC, ADIFF, ANEU, LIPID, CMP, GFR, TSH, FT4, FT3, A1C #### [place] [address] #### VIDH, B12, FOL, ACTH, MCRSO #### [place] [address] FOL Collected: 06/01/2017 Status: F Source: [facility] 12:20 PM [facility] REPOSITORY TYPE CODE TESTS RESULT OUT OF REFERENCE UNITS RANGE LAB FOL(LOINC) 1.1-20.0 ng/mL High Folate 38.7 Performed By: #### CBC, ADIFF, ANEU, LIPID, CMP, GFR, TSH, FT4, FT3, A1C #### [place] [address] #### VIDH, B12, FOL, ACTH, MCRSO #### [place] [address] ACTH Collected: 06/01/2017 Status: F Source: [facility] 12:20 PM [facility] REPOSITORY TYPE CODE TESTS RESULT OUT OF RANGE REFERENCE UNITS LAB ACTH(LOINC) 9.0-46.0 pg/mL ACTH 15.2 Performed By: #### CBC, ADIFF, ANEU, LIPID, CMP, GFR, TSH, FT4, FT3, A1C #### [place] [address] #### VIDH, B12, FOL, ACTH, MCRSO #### [place] [address] MCRS1 Collected: 06/01/2017 Status: F Source: [facility] 12:20 PM [facility] REPOSITORY TYPE CODE TESTS RESULT OUT OF REFERENCE UNITS RANGE LAB MCRSO(LOIN 0-35 IU/mL C) Microsomal Ab 22 Result Comment: This result represents Anti-TPO antibodies which are synonymous with microsomal antibodies. Performed By: #### CBC, ADIFF, ANEU, LIPID, CMP, GFR, TSH, FT4, FT3, A1C #### [place] [address] #### VIDH, B12, FOL, ACTH, MCRSO #### [place] [address] URGENT CARE VISIT Observed: 05/27/2017 Status: F Source: [facility] 11:06 AM [facility] REPOSITORY [facility] [address] [place] [address] [address] [place] [address] OFFICE VISIT Date of Service: 05/27/17 MR#: [id number] Acct: [id number] Name: KAYA ARCE Rep #: [id number] : 1985 Provider: Matt BLANTON Age/Sex: 31/F Location: [facility] Status: Signed Intake Vital Signs05/27/17 Height 5 ft 2 in 05/27/17 Weight: 173 lb 05/27/17 Body Mass Index (BMI) 31.6 05/27/17 Blood Pressure 122/74 Intake Visit Reasons: STOMACH ISSUES Chief Complaint: abdomainal pain, bloody diarrhea Floor Cashier Required: No Is patient in pain?: No Allergies eucalyptus Allergy (Mild, Verified 05/27/17 09:58) unknown latex Allergy (Mild, Verified 05/27/17 09:58) Unknown cephalexin monohydrate [From Keflex] Allergy (Verified 03/03/17 20:49) Anaphylaxis doxycycline Adverse Reaction (Verified 03/03/17 20:49) Diarrhea Medications Atenolol [Tenormin (beta Edson)] 25 mg PO DAILY 01/11/16 [History Confirmed 05/27/17] Omeprazole [Prilosec] 20 mg PO DAILY 11/30/16 [History Confirmed 05/27/17] BuPROPion (XL) [Wellbutrin Xl] 150 mg PO DAILY 03/03/17 [History Confirmed 05/27/17] HydrOXYzine KYLEIGH [Vistaril] 25 mg PO TID PRN PRN #20 cap 03/03/17 [Rx Confirmed 05/27/17] Medroxyprogesterone Acetate [Provera] 5 mg PO DAILY 03/03/17 [History Confirmed 05/27/17] Potassium Chloride [Klor-Con 10] 10 meq PO DAILY 03/03/17 [History Confirmed 05/27/17] azelaic acid 15 % topical gel TOPICAL 30 Days #50 05/27/17 [History Confirmed 05/27/17] fluconazole 200 mg tablet PO 21 Days #21 05/27/17 [History Confirmed 05/27/17] PFSH Surgical History History of (Acute) History of hernia repair (Acute) Hx of removal of ovary (Acute) Social History Smoking Status: Never smoker alcohol intake: never HPI HPI Chief Complaint: abdomainal pain, bloody diarrhea Details: KAYA ARCE, is a 31 F who presents to the office today for initial evaluation approximately 1 day history of new onset isabel bloody diarrhea with abdominal discomfort. Patient notes having a long-standing history of gastroenterology issues including anal fissures, hemorrhoids, diverticulosis, intestinal prolapse for which she has followed up with gastroenterology previously but is currently in between gastroenterologists at this time. She is becoming concerned because anything that she eats or drinks she states, goes right through her . She notes bismuth is not helping her symptoms either. She notes feeling chilled over the last several hours, without complaints of back pain, chest pain/shortness of breath/dyspnea on exertion/PND/orthopnea/syncope/near syncope. She states she has a follow-up appointment with gastroenterology nurse practitioner on June 10, but does not feel she can wait until then. She notes she has been under a lot of stress lately and feels this is may have exacerbating her symptoms. She notes no other complaints at this time. ROS Const Constitutional: Positive for chills; no excessive sweating, abnormal sleep pattern, fever(s), night sweats or body ache Eyes Eyes: No change in vision ENT ENT: No ear pain Resp Respiratory: No cough or chest congestion Cardio Cardiology: No excessive sweating, chest pain at rest, chest pain with exertion, shortness of breath, dyspnea on exertion, irregular heart rhythm, generalized swelling, leg pain with exertion, orthopnea, fast heart rate, radiating jaw, neck or arm pain, lightheadedness or palpitations Gastro GI: Positive for diarrhea and blood in stool; no abdominal pain, change in stool character, change in bowel habits, nausea/dyspepsia, Black,tarry stools, pain with swallowing or vomiting Musc Musculoskeletal: No joint pain, back pain or limited range of motion Skin Skin: No change in hair or sores Neuro Neurology: No abnormal speech or abnormal movements Psych Psychiatric: No abnormal sleep pattern Endo Endocrine: No excessive sweating, change in body appearance, cold intolerance or heat intolerance Aller/Imm Allergy/Immunologic: No food intolerance Marcus/Lymp Hematologic/Lymphatic: No easy bruising Exam Const General: cooperative, no acute distress, ill appearing (mildly clammy to palpation) Nutritional Appearance: average body habitus, obese Orientation: alert, awake, oriented x3 [facility] Head: normal to inspection Ears: hearing grossly normal bilaterally Nose: external nose normal Eyes General: appearance normal, both eyes and all related structures Neck Neck: normal visual inspection, full ROM Neck mass: No Thyroid: thyroid normal Lymphatic: no lymphadenopathy noted Chest Chest palpation AND inspection: normal inspection of the chest Resp Effort AND Inspection: normal respiratory effort, able to speak in complete sentences, symmetric chest movement, no cough Auscultation: Bilateral: Clear to Auscultation Cardio Palpation: normal PMI Rate: regular rate Rhythm: regular rhythm Heart Sounds: S1 normal, S2 normal, no gallops, no murmurs, no rubs Pulses: radial pulses present GI Inspection: normal to inspection Palpation: soft, no hepatosplenomegaly, tender at McBurney's point, obturator sign positive, in the RLQ and in the epigastrum; Negative for Carrasco's sign negative or psoas sign negative, no masses, not firm, no pulsatile masses Skin General: no rashes or lesions noted Neuro General: alert, awake, oriented x3, gait normal Cognition: normal cognition Speech: speech normal Gait: normal gait Motor: muscle tone normal throughout Sensory Exam: no sensory deficits noted Extrem General: normal to inspection Psych Appearance: grossly normal Mental Status: mental status grossly normal Mood: congruent mood Affect: normal affect Speech and Movement: speech and movement normal Attitude: cooperative Thought Process: normal Thought Content: normal Judgment: judgment good Assessment AND Plan Problems 1. Abdominal pain R10.9 2. Diarrhea R19.7 3. Hematochezia K92.1 Plan -Consider appendicitis Recommend patient report to the emergency room at this time for further evaluation, however EMS transfer which patient refused -stating she had to go home to handle some personal business and that she would take herself to the emergency room later today. This note was generated with [employer] dictation software. It may contain incorrect words, spelling, and punctuation that were not noted in checking the note before signing. Coding Level of Care Code Off vis,est,level 4 Diagnoses Abdominal pain R10.9 Diarrhea R19.7 Hematochezia K92.1 05/27/17 1106 <Electronically signed by Matt BLANTON> Date Matt BLANTON Cosigner Signature: Date (if applicable) CC: PROGRESS Observed: 05/06/2017 Status: COMPLETED Source: [place] 10:10 AM [facility] REPOSITORY O ID: [id number] Author: Petar Copeland) Sonny Service: (none) Author Type: Physician Type: Progress Notes Filed: 05/30/2017 5:16 PM Note Text: Department of Dermatology Petar Dennis MD 05/06/2017 Last visit in Dermatology: 12/15/2016 Assessment/Plan Problem List Items Addressed This Visit Dermatology Pityrosporum folliculitis - Primary Relevant Orders NINOSKA PREP B/O (Completed) Other Visit Diagnoses Perioral dermatitis Principally on the back, chest and shoulders. Medication use discussed. Signed Prescriptions Disp Refills fluconazole (DIFLUCAN) 200 mg tablet 21 tablet 0 Sig: Take 1 tablet by mouth once daily for 21 days. ketoconazole (NIZORAL) 2 % cream 30 g 3 Sig: Apply 1 application to affected area once daily as needed. Perioral dermatitis is improved. Follow-up as noted below or as needed. Petar Dennis MD This note is completed at 5:14 PM on 05/30/2017 and reflects the services provided at the time of the appointment. E-visit Recommended Follow Up: Follow up eVisit not offered. Patient not appropriate for eVisit based on diagnosis. Chief Complaint: Patient presents with: Follow Up: recurrent cysts Subjective and Objective HPI: Kaya Arce is a 31 year old female who presents for: Sores on the back and shoulders -- like her acne, but more inflammatory. Moderate to severe intensity. Not responding to previous treatment, whereas the acne seemed to do much better.nif. No associated symptoms. PAST MEDICAL HISTORY Diagnosis Date - Abnormal glandular Papanicolaou smear of cervix Abn. Pap smear (cervix) - Abnormal maternal glucose tolerance, antepartum 2003 diet controlled - Allergic rhinitis, cause unspecified Allergic rhinitis - Anal fissure - Ankylosis spondylitis - Back pain - Calculus of kidney 2007 4 stones, followed by Dr. 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 betamethasone valerate 0.1 % lotion Apply 1 application to affected area twice daily as needed (for irritation on the scalp). potassium chloride (KLOR-CON 10) 10 mEq tablet Take 1 tablet by mouth once daily. lidocaine (XYLOCAINE) 2 % jelly Apply 1 application to affected area as directed. MIRALAX / GATORADE PREP Miralax 238gm bottle and (2) 32oz bottles of Gatorade, AND 4 Dulcolax 5mg tabs - as directed per instructions diazePAM (VALIUM) 5 mg tablet Take 1 tablet by mouth once daily as needed. dexamethasone (DECADRON) 1 mg tablet Take 1 mg by mouth once daily as needed. tretinoin (RETIN-A) 0.025 % topical cream Apply to affected area daily at bedtime. Clindamycin Phosphate (CLEOCIN T) 1 % lotion Apply to affected area twice daily. SULFACETAMIDE SODIUM TOPICAL Apply 1 application to affected area twice daily. Ketoconazole 1 % sham Apply 1 application to affected area. Couple times a week. Fluticasone Propionate (CUTIVATE) 0.05 % cream Apply 1 application to affected area twice daily. Azelaic Acid (FINACEA) 15 % gel Apply 1 application to affected area twice daily. magnesium hydroxide (MILK OF MAGNESIA) 400 mg/5 mL suspension Take 5 mL by mouth once daily as needed. atenolol (TENORMIN) 25 mg tablet Take 1 tablet by mouth once daily. ivermectin (SOOLANTRA) 1 % crea Apply 1 application to affected area once daily. For the face. Salicylic Acid 6 % gel Apply 1 application to affected area once daily. For affected areas of the torso hydrocortisone (HYTONE) 2.5 % lotion Apply 1 application to affected area twice daily. lidocaine 5 % gel Apply to affected area once daily. docusate sodium (COLACE) 100 mg capsule Take 100 mg by mouth twice daily as needed. METRONIDAZOLE TOPICAL Apply to affected area twice daily. Simethicone (GAS FREE EXTRA STRENGTH) 125 mg cap Take 1 tablet by mouth three times daily as needed. hydrocortisone (HEMORRHOIDAL HC) 25 mg suppository 1 Suppository by RECTAL route twice daily as needed. Insert one (1) in the rectum each night before bed. Tranexamic Acid 650 mg tab Take 2 tablets by mouth three times daily as needed (until bleeding slows or stops for up to 5 days). ondansetron (ZOFRAN, HYDROCHLORIDE,) 4 mg tablet Take 4 mg by mouth every 8 hours as needed. COMPOUNDED PRESCRIPTION Apply to affected area. Nifedipine 0.3% apply to anal area twice daily. albuterol 90 mcg/actuation Aero Inhale 2 Puffs as instructed every 4 hours as needed (shortness of breath). cetirizine 10 mg tablet Take 1 tablet by mouth once daily. MULTI-VITAMIN ORAL Take by mouth once daily. 2 tablets daily buPROPion XL (WELLBUTRIN XL) 150 mg 24 hr tablet Take 1 tablet by mouth once daily. No current facility-administered medications on file prior to visit. ROS: Patient feels generally well Denies other rashes or pruritus Denies other worrisome skin lesions Physical Exam: The patient appeared generally well. No acute distress and non-toxic. Alert and oriented. Positive findings: Inflammatory papules, monomorphous papules and excoriations on the back. Acneiform papules seem to be better on the face. The remainder of the exam was otherwise unremarkable and included: face, eyes and eyelids, lips, neck and back, shoulders, chest. Procedure/Biopsy today: No. Office Visit on 05/06/2017 NINOSKA Prep Date: 05/06/2017 Value: Positve* Ref Range Negative Status: Final Comment: right neck Attending signature: Petar Dennis MD CNOV Observed: 05/06/2017 Status: COMPLETED Source: [place] 10:00 AM [facility] REPOSITORY Office Visit (DERMST) KAYA ARCE ([id number]) 1985 F Date Time Provider Department 05/06/17 10:00 AM PETAR DENNIS) DERMST During your visit today, we recorded the following information about you: Petar Dennis MD 05/30/2017 5:16 PM Signed Department of Dermatology Petar Dennis MD 05/06/2017 Last visit in Dermatology: 12/15/2016 Assessment/Plan Problem List Items Addressed This Visit Dermatology Pityrosporum folliculitis - Primary Relevant Orders NINOSKA PREP B/O (Completed) Other Visit Diagnoses Perioral dermatitis Principally on the back, chest and shoulders. Medication use discussed. Signed Prescriptions Disp Refills fluconazole (DIFLUCAN) 200 mg tablet 21 tablet 0 Sig: Take 1 tablet by mouth once daily for 21 days. ketoconazole (NIZORAL) 2 % cream 30 g 3 Sig: Apply 1 application to affected area once daily as needed. Perioral dermatitis is improved. Follow-up as noted below or as needed. Petar Dennis MD This note is completed at 5:14 PM on 05/30/2017 and reflects the services provided at the time of the appointment. E-visit Recommended Follow Up: Follow up eVisit not offered. Patient not appropriate for eVisit based on diagnosis. Chief Complaint: Patient presents with: Follow Up: recurrent cysts Subjective and Objective HPI: Kayanarendra Arce is a 31 year old female who presents for: Sores on the back and shoulders -- like her acne, but more inflammatory. Moderate to severe intensity. Not responding to previous treatment, whereas the acne seemed to do much better.nif. No associated symptoms. PAST MEDICAL HISTORY Diagnosis Date - Abnormal glandular Papanicolaou smear of cervix Abn. Pap smear (cervix) - Abnormal maternal glucose tolerance, antepartum 2003 diet controlled - Allergic rhinitis, cause unspecified Allergic rhinitis - Anal fissure - Ankylosis spondylitis - Back pain - Calculus of kidney 2007 4 stones, followed by Dr. 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 betamethasone valerate 0.1 % lotion Apply 1 application to affected area twice daily as needed (for irritation on the scalp). potassium chloride (KLOR-CON 10) 10 mEq tablet Take 1 tablet by mouth once daily. lidocaine (XYLOCAINE) 2 % jelly Apply 1 application to affected area as directed. MIRALAX / GATORADE PREP Miralax 238gm bottle and (2) 32oz bottles of Gatorade, ANDamp; 4 Dulcolax 5mg tabs - as directed per instructions diazePAM (VALIUM) 5 mg tablet Take 1 tablet by mouth once daily as needed. dexamethasone (DECADRON) 1 mg tablet Take 1 mg by mouth once daily as needed. tretinoin (RETIN-A) 0.025 % topical cream Apply to affected area daily at bedtime. Clindamycin Phosphate (CLEOCIN T) 1 % lotion Apply to affected area twice daily. SULFACETAMIDE SODIUM TOPICAL Apply 1 application to affected area twice daily. Ketoconazole 1 % sham Apply 1 application to affected area. Couple times a week. Fluticasone Propionate (CUTIVATE) 0.05 % cream Apply 1 application to affected area twice daily. Azelaic Acid (FINACEA) 15 % gel Apply 1 application to affected area twice daily. magnesium hydroxide (MILK OF MAGNESIA) 400 mg/5 mL suspension Take 5 mL by mouth once daily as needed. atenolol (TENORMIN) 25 mg tablet Take 1 tablet by mouth once daily. ivermectin (SOOLANTRA) 1 % crea Apply 1 application to affected area once daily. For the face. Salicylic Acid 6 % gel Apply 1 application to affected area once daily. For affected areas of the torso hydrocortisone (HYTONE) 2.5 % lotion Apply 1 application to affected area twice daily. lidocaine 5 % gel Apply to affected area once daily. docusate sodium (COLACE) 100 mg capsule Take 100 mg by mouth twice daily as needed. METRONIDAZOLE TOPICAL Apply to affected area twice daily. Simethicone (GAS FREE EXTRA STRENGTH) 125 mg cap Take 1 tablet by mouth three times daily as needed. hydrocortisone (HEMORRHOIDAL HC) 25 mg suppository 1 Suppository by RECTAL route twice daily as needed. Insert one (1) in the rectum each night before bed. Tranexamic Acid 650 mg tab Take 2 tablets by mouth three times daily as needed (until bleeding slows or stops for up to 5 days). ondansetron (ZOFRAN, HYDROCHLORIDE,) 4 mg tablet Take 4 mg by mouth every 8 hours as needed. COMPOUNDED PRESCRIPTION Apply to affected area. Nifedipine 0.3% apply to anal area twice daily. albuterol 90 mcg/actuation Aero Inhale 2 Puffs as instructed every 4 hours as needed (shortness of breath). cetirizine 10 mg tablet Take 1 tablet by mouth once daily. MULTI-VITAMIN ORAL Take by mouth once daily. 2 tablets daily buPROPion XL (WELLBUTRIN XL) 150 mg 24 hr tablet Take 1 tablet by mouth once daily. No current facility-administered medications on file prior to visit. ROS: Patient feels generally well Denies other rashes or pruritus Denies other worrisome skin lesions Physical Exam: The patient appeared generally well. No acute distress and non-toxic. Alert and oriented. Positive findings: Inflammatory papules, monomorphous papules and excoriations on the back. Acneiform papules seem to be better on the face. The remainder of the exam was otherwise unremarkable and included: face, eyes and eyelids, lips, neck and back, shoulders, chest. Procedure/Biopsy today: No. Office Visit on 05/06/2017 NINOSKA Prep Date: 05/06/2017 Value: Positve* Ref Range Negative Status: Final Comment: right neck Attending signature: Petar Dennis MD Referring Provider: PETAR DENNIS) [[id number]] Allergies As of Date: 05/06/2017 Noted Allergy Reaction BEES 06/18/2010 4 - Hives 7 - Swelling DOXYCYCLINE 09/26/2008 8 - GI Upset Comments: Not able to tolerate due to GI effects EUCALYPTUS 06/07/2007 Comments: tachycardia close airway FLEXERIL (CYCLOBENZAPRINE) 04/28/2012 1 - Mental Status Change Comments: Made patient feel worse than before KEFLEX (CEPHALEXIN) 05/09/2002 4 - Hives 10 - Anaphylaxis LATEX 08/15/2008 7 - Swelling MINOCYCLINE 03/07/2008 8 - GI Upset NSAIDS (NON-STEROIDAL ANTI-INFLAM*2015 5 - Intolerance TIZANIDINE 12/04/2010 1 - Mental Status Change Comments: Low HR, cold and clammy (subjective only) VICODIN (HYDROCODONE-ACETAMINOPHE*03/31/2010 9 - Itching nitroglycerin suppositories [Othe*01/31/2008 Date Reviewed: 05/06/2017 Reviewed by: Nico Rodrigues LPN - Fully Assessed Reason for Visit: Follow Up [171] Cmt: recurrent cysts Reason For Visit History Recorded Primary Visit Diagnosis:Pityrosporum folliculitis [L73.8] Other Visit Diagnosis:Perioral dermatitis [L71.0] Order(s):NINOSKA PREP B/O [0795567] Order #: [id number] [] fluconazole (DIFLUCAN) 200 mg tabletTake 1 tablet by mouth once daily for 21 days.Disp: 21 tabletRfl: 0 ketoconazole (NIZORAL) 2 % creamApply 1 application to affected area once daily as needed.Disp: 30 gRfl: 3 Prescriptions as of 05/06/2017 Sig: OMEPRAZOLE 20 MG CAPSULE,JACQUE* TAKE 1 CAPSULE BY MOUTH ONCE * BETAMETHASONE VALERATE 0.1 % * Apply 1 application to affect* POTASSIUM CHLORIDE ER 10 MEQ * Take 1 tablet by mouth once d* LIDOCAINE 2 % MUCOSAL JELLY Apply 1 application to affect* COMPOUNDED PRESCRIPTION Miralax 238gm bottle and (2) * DIAZEPAM 5 MG TABLET Take 1 tablet by mouth once d* DEXAMETHASONE 1 MG TABLET Take 1 mg by mouth once daily* TRETINOIN 0.025 % TOPICAL CRE* Apply to affected area daily* SULFACETAMIDE SODIUM TOPICAL Apply 1 application to affect* AZELAIC ACID 15 % TOPICAL GEL Apply 1 application to affect* MAGNESIUM HYDROXIDE 400 MG/5 * Take 5 mL by mouth once daily* ATENOLOL 25 MG TABLET Take 1 tablet by mouth once d* DOCUSATE SODIUM 100 MG CAPSULE Take 100 mg by mouth twice da* SIMETHICONE 125 MG CAPSULE Take 1 tablet by mouth three * HYDROCORTISONE ACETATE 25 MG * 1 Suppository by RECTAL route* TRANEXAMIC ACID 650 MG TABLET Take 2 tablets by mouth three* ONDANSETRON HCL 4 MG TABLET Take 4 mg by mouth every 8 ho* COMPOUNDED PRESCRIPTION Apply to affected area. Nife* ALBUTEROL 90 MCG/ACTUATION AE* Inhale 2 Puffs as instructed * * CETIRIZINE 10 MG TABLET Take 1 tablet by mouth once d* * MULTI-VITAMIN ORAL Take by mouth once daily. 2 * FLUCONAZOLE 200 MG TABLET Take 1 tablet by mouth once d* KETOCONAZOLE 2 % TOPICAL CREAM Apply 1 application to affect* Medication notes this encounter HYDROCORTISONE ACETATE 25 MG RECTAL SUPPOSITORY >> Petar Dennis MD 05/06/2017 10:15 AM >> PETAR DENNIS MD [facility] May 06, 2017 10:15 AM BUPROPION XL 150 MG TAB >> Nico Rodrigues LPN 05/06/2017 10:07 AM >> NICO RODRIGUES LPN [facility] May 06, 2017 10:07 AM D/c stopped SALICYLIC ACID 6 % TOPICAL GEL >> Petar Dennis MD 05/06/2017 10:15 AM >> PETAR DENNIS MD [facility] May 06, 2017 10:15 AM METRONIDAZOLE TOPICAL >> Petar Dennis MD 05/06/2017 10:15 AM >> PETAR DENNIS MD [facility] May 06, 2017 10:15 AM Problem List As Of Date 05/06/2017 Noted Resolved PAIN IN JOINT, LOWER LEG [M25.569] INVALID FOR*01/24/2008 ASTHMA UNSPECIFIED [J45.909] INVALID FOR* Priority: Mild CHRONIC RHINITIS [J31.0] INVALID FOR* DYSMETABOLIC SYNDROME X [E88.81] INVALID FOR* Priority: Moderate More... 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 IMPAIRED FASTING GLUCOSE [R73.01] INVALID FOR* Priority: Mild ABN GLUCOSE-ANTEPARTUM [O99.810] 08/01/2008 More... THROMBOS HEMORRHOIDS NOS [K64.5] INVALID FOR* Priority: Mild More... [facility]*INVALID FOR*11/21/2011 Priority: Mild Class: Chronic More... ROUTINE MELT HELPER EXAMINATION [Z01.419] INVALID FOR*08/15/2008 Class: Chronic More... HX OF CERVICAL DYSPLASIA [Z87.410] INVALID FOR* More... ANXIETY STATE NOS [F41.1] INVALID FOR* Priority: Moderate More... PREV DELIVERY NOS-ANTEPART [O34.219] INVALID FOR* POOR GRTH-ANTEPART [O36.5990] INVALID FOR*09/26/2008 Routine gynecological examination [Z01.419] INVALID FOR*11/21/2011 Class: Chronic More... HIDRADENITIS [L73.2] INVALID FOR* Priority: Moderate More... 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] INVALID FOR* Pyoderma, unspecified [L08.0] INVALID FOR*05/21/2016 Pain in joint, lower leg [M25.569] INVALID FOR* Headache [R51] INVALID FOR* Lumbago [M54.5] INVALID FOR* Spasm of muscle [M62.838] INVALID FOR* Adrenal insufficiency [E27.40] Muscle spasm [M62.838] INVALID FOR* Calculus of kidney [N20.0] INVALID FOR* Lyme disease [A69.20] INVALID FOR* Seborrheic Dermatitis [L21.8] INVALID FOR* Xerosis cutis [L85.3] INVALID FOR*05/21/2016 Calculus of ureter [N20.1] INVALID FOR* Pyoderma [L08.0] INVALID FOR*05/21/2016 Pruritus [L29.9] INVALID FOR*05/21/2016 Monilial vulvovaginitis [B37.3] INVALID FOR* Migraine without aura, with intractable migrain*INVALID FOR* Microhematuria [R31.29] INVALID FOR* Flank pain [R10.9] INVALID FOR* Female stress incontinence [N39.3] INVALID FOR* Menstrual irregularity [N92.6] INVALID FOR* Palpitations [R00.2] INVALID FOR* Backache, unspecified [M54.9] INVALID FOR* Anorectal polyp [K62.0, K62.1] INVALID FOR* Low back pain [M54.5] INVALID FOR* Buttock pain [M79.1] INVALID FOR* Lumbosacral neuritis [M54.17] INVALID FOR* Gross hematuria [R31.0] INVALID FOR* History of kidney stones [Z87.442] INVALID FOR* Straining on urination [R39.16] INVALID FOR* Hesitancy [R39.11] INVALID FOR* Difficulty voiding [R39.198] INVALID FOR* Chronic pelvic pain in female [R10.2, G89.29] INVALID FOR* Endometriosis [N80.9] INVALID FOR* Prescriptions ordered this encounter Disp Refills Start End FLUCONAZOLE 200 MG TABLET 21 t* 0 05/06/2017 05/27/2017 Cmt: Patient will not use Zofran during the course of treatment. Route: ORAL Sig: Take 1 tablet by mouth once daily for 21 days. KETOCONAZOLE 2 % TOPICAL CREAM 30 g 3 05/06/2017 Route: TOPICAL Sig: Apply 1 application to affected area once daily as needed. Medications Discontinued During This Encounter Salicylic Acid 6 % gel 40 g 3 05/21/2016 05/06/2017 Route: TOPICAL Sig: Apply 1 application to affected area once daily. For affected areas of the torso Disc: Lack of Efficacy buPROPion XL (WELLBUTRIN XL) 150 mg * 01/18/2017 05/06/2017 Class: Historical Med Route: ORAL Sig: Take 1 tablet by mouth once daily. Disc: Reason for discontinue is not on file. Clindamycin Phosphate (CLEOCIN T) 1 * 05/06/2017 Class: Historical Med Route: TOPICAL Sig: Apply to affected area twice daily. Disc: Reason for discontinue is not on file. Fluticasone Propionate (CUTIVATE) 0.* 60 g 0 12/15/2016 05/06/2017 Route: TOPICAL Sig: Apply 1 application to affected area twice daily. Disc: Reason for discontinue is not on file. hydrocortisone (HYTONE) 2.5 % lotion 60 mL 3 05/21/2016 05/06/2017 Route: TOPICAL Sig: Apply 1 application to affected area twice daily. Disc: Reason for discontinue is not on file. ivermectin (SOOLANTRA) 1 % crea 1 Tu* 3 05/21/2016 05/06/2017 Route: TOPICAL Sig: Apply 1 application to affected area once daily. For the face. Disc: Reason for discontinue is not on file. Ketoconazole 1 % sham 05/06/2017 Class: Historical Med Route: TOPICAL Sig: Apply 1 application to affected area. Couple times a week. Disc: Reason for discontinue is not on file. lidocaine 5 % gel 05/06/2017 Class: Historical Med Route: TOPICAL Sig: Apply to affected area once daily. Disc: Reason for discontinue is not on file. METRONIDAZOLE TOPICAL 05/06/2017 Class: Historical Med Route: TOPICAL Sig: Apply to affected area twice daily. Disc: Reason for discontinue is not on file. Encounter Status:Closed by PETAR DENNIS MD on 05/30/17 [facility] SURGICAL PATHOLOGY Observed: 04/26/2017 Status: F Source: [facility]PARTMENT 2:05 PM [facility]OSPITALS REPOSITORY Name KAAY ARCE Pathologist: ALVERTO BURRELL M.D., PhD. Date of Procedure: 04/26/2017 Date Received: 04/27/2017 Date Reported 04/28/2017 Submitting Physician: APURVA CUELLAR M.D. Location: [facility] Other External # [id number] FINAL DIAGNOSIS A. 2ND AND 3RD PORTION DUODENUM, BIOPSY, NO EVIDENE OF CROHN'S: --SMALL BOWEL MUCOSA, NO SIGNIFICANT PATHOLOGIC FINDINGS B. TERMINAL ILEUM, BIOPSY: --SMALL BOWEL MUCOSA, NO SIGNIFICANT PATHOLOGIC FINDINGS C. RIGHT COLON, BIOPSY: --COLONIC MUCOSA, NO SIGNIFICANT PATHOLOGIC FINDINGS D. LEFT COLON, BIOPSY: --COLONIC MUCOSA, NO SIGNIFICANT PATHOLOGIC FINDINGS E. RECTUM BIOPSY/RECTUM POLYP: --MUCOSAL PROLAPSE POLYP Electronically Signed Out By ALVERTO BURRELL M.D., PhD./WLI By the signature on this report, the individual or group listed as making the Final Interpretation/Diagnosis certifies that they have reviewed this case. Clinical History: Abdominal pain, r/o crohn's disease, EGD:normal, colon: normal, external hemorrhoids Specimens Submitted As: A: 2ND AND 3RD PORTION DUODENUM BIOPSY, NO EVIDENE OF CROHN'S B: TERMINAL ILEUM BIOPSY C: RIGHT COLON BIOPSY D: LEFT COLON BIOPSY E: RECTUM BIOPSY/RECTUM POLYP Other Case Numbers [id number] Gross Description: A: Received in formalin, labeled with the patient's name and hospital number and 1, BX 2nd, 3rd portion duodenum, are multiple fragments of hassan, soft tissue aggregating to 0.6 and 0.4 x 0.1 cm. The specimen is submitted in toto in one cassette. MXW B: Received in formalin, labeled with the patient's name and hospital number and 2, BX terminal ileum , are fragments of hassan, soft tissue aggregating to 0.5 x 0.3 x 0.1 cm. The specimen is submitted in toto in one cassette. MXW C: Received in formalin, labeled with the patient's name and hospital number and 3, BX right colon , are multiple fragments of hassan, soft tissue aggregating to 0.6 x 0.4 x 0.1 cm. The specimen is submitted in toto in one cassette. MXW D: Received in formalin, labeled with the patient's name and hospital number and 4, BX left colon , are 2 fragments of hassan, soft tissue aggregating to 5 x 0.5 x 0 point The specimen is submitted in toto in one cassette. MXW E: Received in formalin, labeled with the patient's name and hospital number and 5, BX rectum/rectal polyp , are 2 fragments of hassan, soft tissue aggregating to 0.5 x 0.3 x 0.1 cm. The specimen is submitted in toto in one cassette. MXW mxw/04/27/2017 Performed By: #### [facility] #### [facility] Surgical Pathology Department [address] [facility] [address] PATHOLOGY SPECIMEN Collected: 04/26/2017 Status: F Source: [place] 2:05 PM [facility] REPOSITORY Order Comment: Comment: BX DUODENUM Comment: BX TERMINAL ILEUM Comment: BX RIGHT COLON Comment: BX LEFT COLON Comment: BX RECTUM TYPE CODE TESTS RESULT OUT OF RANGE REFERENCE UNITS LAB L900.33114 Normal PATHOLOGY SPEC Result Comment: Note: Specimens received on or after November: * Reports will be faxed to all physician's office. If you are a physician or have access to [employer]: * Pathology and Cytology reports are located in [facility] in the folder labeled Medical Record Forms. * Reports are also in the Physician Portal. * For assistance locating reports call: (LAB) [phone] Performed By: #### [facility] #### [facility] [address] [facility] [place] [address] PREG URINE QUAL Collected: 04/26/2017 Status: F Source: [place] 12:38 PM [facility] REPOSITORY Order Comment: [place]: MAIN TYPE CODE TESTS RESULT OUT OF RANGE REFERENCE UNITS LAB L600.15897 Normal UR NEGATIVE HCG QUAL Result Comment: Very dilute urines, as indicated by low specific gravity, may not contain senior human resources representative urinary hCG concentrations and may result in a false negative result. Specific [place] = 1.004 Performed By: #### [facility] #### [facility] Laboratory [address] [place] [address] ALLERGIES ALLERGIES DATE TYPE / CODE NAME / CODE REACTION SEVERITY SOURCE 02/11/20 Drug cephalexin Anaphylaxis Unknown [place] 18 Allergy/420405321 monohydrate/Q194050 Community (SNOMED CT) 830(RXNORM) Hospital Repository 02/11/20 Drug eucalyptus/S5009874 tachycardia, SV [place] 18 Allergy/386026048 86(RXNORM) close airway Community (SNOMED CT) Hospital Repository 02/11/20 Drug doxycycline/S897189 Diarrhea Unknown [place] 18 Allergy/493630638 748(RXNORM) Community (SNOMED CT) Hospital Repository 02/11/20 Drug latex/D070541613(RX Unknown [facility] [place] [facility] Allergy/581297146 NORM) [facility] (SNOMED [facility] Hospital Repository 02/11/20 Drug NSAIDS gi upset SV [place] 18 Allergy/432918303 (Non-Steroidal Community (SNOMED CT) Anti-Inflamma/F0010 Hospital 77814(RXNORM) Repository 02/11/20 Drug hydrocodone/A529353 Itching SV [place] 18 Allergy/596441560 554(RXNORM) [facility] (SNOMED [facility] Hospital Repository 02/11/20 Drug acetaminophen/F0060 Itching SV [place] 18 Allergy/896810848 89540(RXNORM) [facility] (SNOMED [facility]) Hospital Repository 02/11/20 Drug cyclobenzaprine/F00 mental status SV [place] 18 Allergy/923321266 3964930(RXNORM) change [facility] (SNOMED [facility]) Hospital Repository 02/11/20 Drug tizanidine/F8372375 Low HR SV [place] 18 Allergy/558599741 21(RXNORM) [facility] (SNOMED CT) Hospital Repository 08/22/19 Drug NSAIDS INTOLERANCE [place] 16 Class/646235648(S (NON-STEROIDAL Clinic Main NOMED CT) ANTI-INFLAMMATORY [place] [facility]) Repository 04/28/19 DRUG CYCLOBENZAPRINE Mental Chg [place] 13 INGREDI/912643929 Clinic Main (SNOMED CT) [place] Repository 12/05/19 DRUG TIZANIDINE Mental Chg [place] 11 INGREDI/787270696 Clinic Main (SNOMED CT) [place] Repository 06/19/19 Environ/572306092 BEES HIVES [place] 11 (SNOM[address]) Clinic Main [place] Repository 03/31/19 DRUG/334194758(SN HYDROCODONE-ACETAMI ITCHING [place] [address]) NOPHEN Clinic Main [place] Repository 09/27/19 DRUG DOXYCYCLINE GI UPSET [place] 09 INGREDI/458026532 Clinic Main (SNOMED CT) [place] Repository 08/16/19 DRUG LATEX SWELLING [place] 09 INGREDI/509380235 Clinic Main (SNOMED CT) [place] Repository 03/07/20 DRUG MINOCYCLINE GI UPSET [place] 08 INGREDI/899851336 Clinic Main (SNOMED CT) [place] Repository 01/31/20 Miscellaneous OTHER [place] 08 Allergy/407881383 Clinic Main (SNOMED CT) [place] Repository 06/07/19 DRUG EUCALYPTUS [place] 08 INGREDI/891835160 Clinic Main (SNOMED CT) [place] Repository 05/09/19 DRUG CEPHALEXIN HIVES [place] 03 INGREDI/165698424 Clinic Main (SNOMED CT) [place] Repository NG/534286822(SNOM BEES [facility] Repository NG/042784972(SNOM DOXYCYCLINE [facility] Repository NG/941698875(SNOM EUCALYPTUS [facility] Repository NG/814090178(SNOM CYCLOBENZAPRINE [facility] Repository NG/699851542(SNOM CEPHALEXIN [facility] Repository NG/365274617(SNOM LATEX [facility] Repository NG/035866642(SNOM MINOCYCLINE [facility]) [facility] Repository NG/709332047(SNOM NSAIDS [facility]) (NON-STEROIDAL Health System ANTI-INFLAMMATORY Repository DRUG) NG/307839496(SNOM TIZANIDINE [facility]) [facility] Repository NG/367741520(SNOM HYDROCODONE-ACETAMI [facility]) [facility] Health [facility] Repository NG/196413124(SNOM OTHER [facility]) [facility] Repository Drug/559374359(SN doxycycline GI DISCOMFORT [facility] O[facility]) [facility] Repository Drug/048354896(SN Latex Swelling [facility] O[facility]) [facility] Repository Drug/947194404(SN Keflex Hives, swelling [facility] OMED [facility]) [facility] Repository Drug/826989316(SN eucalyptus topical [facility] OMED [facility]) [facility] Repository ENCOUNTERS ENCOUNTERS ADMIT/DISCHARGE ACCOUNT NUMBER ADMITTING ENCOUNTER LOCATION SOURCE CLASS 04/07/2018 [id number] [facility] ding:LAB Repository 03/15/2018 [id number] [facility] ding:PSN Repository 03/15/2018/03/15/20 [id number] Ambulatory BMSBuilding: [place] 18 [facility] Repository 03/15/2018/03/15/20 [id number] Ambulatory BMSBuilding: [place] 18 [facility] Repository 03/09/2018 [id number] [facility] ding:LAB.FUT Repository URE 02/11/2018 [id number] Ambulatory [address] [place] [address] Repository 02/10/2018/02/11/20 [id number] Ambulatory BMSBuilding: [place] 18 BMS.[facility] Repository 02/08/2018 [id number] Ambulatory BMSBuilding: [place] BMS.[facility] Repository 01/19/2018/01/20/20 [id number] Ambulatory BMSBuilding: [place] 18 BMS.[facility] Repository 01/18/2018/01/19/20 [id number] Emergency [address] ding:ED Repository 01/18/2018 [id number] Ambulatory [address] [place] [address] Repository 01/13/2018 [id number] Ambulatory BMSBuilding: [facility] Repository 01/13/2018 [id number] Ambulatory BMSBuilding: [facility] Repository 01/12/2018/01/16/20 [id number] [place], Ambulatory [address] ding:PCURoom Repository : [id number]: 1 01/12/2018 [id number] [place], Ambulatory BMSBuilding: [place] Humberto BMS.[facility] Repository 01/12/2018 [id number] [place], Ambulatory BMSBuilding: [place] Paul BMS.[facility] Repository 01/12/2018 [id number] [place], Ambulatory BMSBuilding: [place] Humberto BMS.[facility] Repository 01/12/2018 [id number] [place], Ambulatory BMSBuilding: [place] H[place]to BMS.[facility] Repository 01/10/2018/01/11/20 [id number] Ambulatory [address] Repository 01/06/2018/01/11/20 [id number] Ambulatory [address] Repository 01/05/2018/01/07/20 [id number] Ambulatory [address] Repository 01/04/2018 [id number] [facility] ding:MTRAD Repository 12/30/2017/01/01/20 [id number] Ambulatory [address] Repository 12/27/2017/12/29/19 [id number] Ambulatory [address] Repository 12/20/2017 [id number] [facility]ulatory [facility] ding:OPUS Repository 12/16/2017/12/17/19 [id number] Ambulatory [address] Other [place] Repository 12/13/2017/12/14/19 [id number] Ambulatory BMSBuilding: [place] 18 [facility] Repository 12/08/2017/12/09/19 [id number] Ambulatory [address] Repository 11/17/2017 [id number] Ambulatory [address] [place] [address] Repository 11/15/2017/11/18/19 [id number] Ambulatory [address] Repository 11/09/2017/11/12/19 [id number] Ambulatory [address] [place] Repository 11/04/2017/11/05/19 [id number] Ambulatory [address] [place] Repository 11/04/2017 [id number] Ambulatory [facility] Repository 11/04/2017/11/06/19 [id number] Ambulatory [address] Repository 10/20/2017 [id number] Ambulatory [address] [place] [address] Repository 10/19/2017/10/20/19 [id number] Ambulatory [address] Repository 10/09/2017/10/10/19 [id number] Emergency ABuilding:[address] Repository 10/06/2017/10/07/19 [id number] Ambulatory [address] Repository 09/28/2017 [id number] [facility] ding:HPRAD Repository 09/28/2017/09/29/19 [id number] [facility] [place] [facility] 09/17/2017 [id number] Ambulatory [facility] CenterBuildi Repository ng:DANIELLE 09/07/2017 [id number] [facility] ding:BFHLAB Repository 09/01/2017/09/03/19 [id number] Ambulatory [address] Repository 08/27/2017/08/28/19 [id number] Emergency [address] ding:ED Repository 08/25/2017 [id number] Ambulatory [facility] Repository 08/25/2017/08/28/19 [id number] Ambulatory [address] Repository 08/24/2017/08/25/19 [id number] Ambulatory [address] Repository 08/24/2017 [id number] Ambulatory [facility] MEDICAL Repository CENTERBuildi ng:CAGWS 08/19/2017 [id number] [facility] Repository 08/18/2017/08/19/19 [id number] Ambulatory [address] Repository 08/18/2017 [id number] Ambulatory [facility] Repository 08/18/2017 [id number] Ambulatory [address] [place] [address] Repository 07/21/2017/07/22/19 [id number] Ambulatory BMSBuilding: [place] 18 BMS.[facility] Repository 07/12/2017/07/14/19 [id number] Ambulatory [address] Repository 07/06/[id number] [facility] Repository 07/02/2017 [id number] [facility] ding:US Repository 06/28/2017/06/29/19 [id number] Ambulatory BMSBuilding: [place] 18 BMS.[facility] Repository 06/18/2017 [id number] Ambulatory [facility] ding:MTLAB Repository 06/08/[id number] [facility] Repository 06/01/2017/06/02/19 [id number] Ambulatory [address] ding:[facility] Repository 05/27/2017/05/28/19 [id number] Ambulatory BMSBuilding: [place] 18 BMS.[facility] Repository 05/06/2017/06/03/19 [id number] Ambulatory [address] Repository 04/29/2017 [id number] Ambulatory [facility] MEDICAL Repository CENTERBuildi ng:AKXRMR 04/29/2017 [id number] Ambulatory [facility] MEDICAL Repository CENTERBuildi ng:AKXRMR 04/26/2017 [id number] Ambulatory [facility] Repository 04/26/2017 [id number] Ambulatory [facility] ng:F.END Repository PAYERS PAYERS ENCOUNTER GUARANTOR PAYER SUBSCRIBER SOURCE 04/07/2018 KAYA O Primary KAYA O [place] [id number] Insurance:CARESOURCEP FICKLEDOB: [facility] Number: [id number] [id number] Repository 79592Vpp: [phone]) Date:2018-04-07P O [phone] () [address]ATTN: [place] [address]KJ: 04/07/2018 Secondary NOT GIVENUNK [place] Insurance:SELF PAY [facility] Number: Effective Repository Date:2018-04-07 03/15/2018 KAYA O Primary KAYA O [place] [id number] Insurance:CARESOURCEP FICKLEDOB: [facility] Number: [id number], [place] [id number] Repository 15513Nse: [phone]) Date:2018-03-15P O [phone] () [address]ATTN: [place] [address]OR: 03/15/2018 Secondary NOT GIVENUNK [place] Insurance:SELF PAY [facility] Number: Effective Repository Date:2018-03-15 03/15/2018 KAYA O Primary KAYA O [place] [id number] Insurance:CARESOURCEP FICEDOB: [facility] Number: [id number], [place] [id number] Repository 34062Xlj: [phone]) Date:2018-03-15P O [phone] () [address]ATTN: [place] [address]PW: 03/15/2018 Secondary NOT GIVENUNK [place] Insurance:SELF PAY [facility] Number: Effective Repository Date:2018-03-15 03/15/2018 KAYA O Primary KAYA [place] [id number] Insurance:CARESOURCEP FICKLEDOB: [facility] Number: [id number], [place] [id number] Repository [address]Yfw: [phone]) Date:2018-03-15P O [phone] () [address]ATTN: [place] [address]ZP: 03/15/2018 Secondary NOT GIVENUNK [place] Insurance:SELF PAY [facility] Number: Effective Repository Date:2018-03-15 03/09/2018 [facility] [id number] Insurance:CARESOURCEP FICKLEDOB: [facility] Number: [id number], [place] [id number] Repository [address]Cjy: (014) Date:2018-03-08P O [phone] () [address]ATTN: [place] [address]JF: 03/09/2018 Secondary NOT GIVENUNK Irma Insurance:SELF PAY [facility] Number: Effective Repository Date:2018-03-08 02/11/2018 [facility] FICKLEDOB: Insurance:CaresourceP FICKLEDOB: [facility] Number: [id number] [facility] [id number] [place], [place] Date:[place], [place] [address]Nlr: (234) Name:[facility] [address] [address]Rwv: (HP) [address], [place] [phone] (HP) [id number]: 02/10/2018 KAYA O Primary KAYA O Irma [id number] Insurance:CARESOURCEP FICKLEDOB: [facility] Number: [id number], [place] [id number] Repository [address]Lxx: (330) Date:2018-01-20P O [phone] () [address]ATTN: [place] [address]BI: 02/10/2018 Secondary NOT GIVENUNK Elizabeth Insurance:SELF PAY [facility] Number: Effective Repository Date:2018-02-10 02/08/2018 KAYA O Primary KAYA O Elizabeth [id number] Insurance:CARESOURCEP FICKLEDOB: [facility] Number: [id number], [place] [id number] Repository [address]Jwb: (036) Date:2018-02-08P O [phone] () [address]ATTN: [place] [address]LZ: 02/08/2018 Secondary NOT GIVENUNK Elizabeth Insurance:SELF PAY [facility] Number: Effective Repository Date:2018-02-08 01/19/2018 KAYA O Primary KAYA O Irma [id number] Insurance:CARESOURCEP FICKLEDOB: [facility] Number: [id number], [place] [id number] Repository [address]Jrm: (330) Date:2018-01-11P O [phone] () [address]ATTN: [place] [address]VG: 01/19/2018 Secondary NOT GIVENUNK Irma Insurance:SELF PAY [facility] Number: Effective Repository Date:2018-01-19 01/18/2018 KAYA O Primary KAYA O Irma [id number] Insurance:CARESOURCEP FICKLEDOB: [facility] Number: [id number], [place] [id number] Repository [address]Raq: (330) Date:2018-01-18P O [phone] () [address]ATTN: [place] [address]EJ: 01/18/2018 Secondary NOT GIVENUNK Irma Insurance:SELF PAY [facility] Number: Effective Repository Date:2018-01-18 01/18/2018 [facility] FICKLEDOB: Insurance:CaresourceP FICKLEDOB: [facility] Number: [id number] Repository [place] [id number] [place] Date:[place] [address]Nap: ([phone]) Name:[facility] [address]Grb: (HP) [address], [place] [phone] () [id number]: 01/13/2018 [facility] [id number] Insurance:CARESOURCEP FICKLEDOB: [facility] Number: [id number] [place], [place] [id number] Repository [address]Rlo: (250) Date:2018-01-12 O [phone] () [address]ATTN: [place] [address]WM: 01/13/2018 Secondary NOT GIVENUNK Elizabeth Insurance:SELF PAY [facility] Number: Effective Repository Date:2018-01-13 01/13/2018 [facility] [id number] Insurance:CARESOURCEP FICKLEDOB: [facility] Number: [id number] [place], [place] [id number] Repository [address]Dlm: ([phone]) Date:2018-01-12 O [phone] () [address]ATTN: [place] [address]DV: 01/13/2018 Secondary NOT GIVENUNK Irma Insurance:SELF PAY [facility] Number: Effective Repository Date:2018-01-13 01/12/2018 KAYA O Primary KAYA O Elizabeth [id number] Insurance:CARESOURCEP FICKLEDOB: [facility] Number: [id number], [place] [id number] Repository [address]Sne: (330) Date:2018-01-12 O [phone] () [address]ATTN: [place] [address]WC: 01/12/2018 Secondary NOT GIVENUNK Irma Insurance:SELF PAY [facility] Number: Effective Repository Date:2018-01-12 01/12/2018 KAYA O Primary KAYA O Elizabeth [id number] Insurance:CARESOURCEP FICKLEDOB: [facility] Number: [id number], [place] [id number] Repository [address]Xkq: (185) Date:2018-01-12P O [phone] () [address]ATTN: [place] [address]OI: 01/12/2018 Secondary NOT GIVENUNK Irma Insurance:SELF PAY [facility] Number: Effective Repository Date:2018-01-12 01/12/2018 KAYA O Primary KAYA O Elizabeth [id number] Insurance:CARESOURCEP FICKLEDOB: [facility] Number: [id number], [place] [id number] Repository [address]Qzz: (330) Date:2018-01-12 O [phone] () [address]ATTN: [place] [address]BF: 01/12/2018 Secondary NOT GIVENUNK Elizabeth Insurance:SELF PAY [facility] Number: Effective Repository Date:2018-01-12 01/12/2018 KAYA O Primary KAYA O Elizabeth [id number] Insurance:CARESOURCEP FICKLEDOB: [facility] Number: [id number], [place] [id number] Repository [address]Xac: (330) Date:2018-01-12 O [phone] () [address]ATTN: [place] [address]BM: 01/12/2018 Secondary NOT GIVENUNK Elizabeth Insurance:SELF PAY [facility] Number: Effective Repository Date:2018-01-12 01/12/2018 KAYA O Primary KAYA O Irma [id number] Insurance:CARESOURCEP FICKLEDOB: [facility] Number: [id number], [place] [id number] Repository [address]Qaf: (330) Date:2018-01-12 O [phone] () [address]ATTN: CLAIMS [facility] [place] [address]VC: 01/12/2018 Secondary NOT GIVENUNK Elizabeth Insurance:SELF PAY [facility] Number: Effective Repository Date:2018-01-12 01/04/2018 KAYA O Primary KAYA O Irma [id number] Insurance:CARESOURCEP FICKLEDOB: [facility] Number: [id number], [place] [id number] Repository [address]Hkf: (330) Date:2018-01-04 O [phone] () [address]ATTN: CLAIMS [facility] [place] [address]HT: 01/04/2018 Secondary NOT GIVENUNK Elizabeth Insurance:SELF PAY [facility] Number: Effective Repository Date:2018-01-04 12/20/2017 KAYA O Primary KAYA O Elizabeth [id number] Insurance:CARESOURCEP FICKLEDOB: [facility] Number: [id number], [place] [id number] Repository [address]Jwh: (330) Date:2017-12-15P O [phone] () [address]ATTN: CLAIMS [facility] [place] [address]UC: 12/20/2017 Secondary NOT GIVENUNK Irma Insurance:SELF PAY [facility] Number: Effective Repository Date:2017-12-15 12/13/2017 [facility] [id number] Insurance:CARESOURCEP FICKLEDOB: [facility] Number: [id number], [place] [id number] Repository [address]Lfy: (330) Date:2017-09-23P O [phone] () [address]ATTN: [place] [address]LZ: 12/13/2017 Secondary NOT GIVENUNK Elizabeth Insurance:SELF PAY [facility] Number: Effective Repository Date:2017-12-06 11/17/2017 [facility] FICKLEDOB: Insurance:CaresourceP FICKLEDOB: [facility] Number: [id number] [facility] [id number] [place], [place] Date:[place] [address]Tze: (234) Name:[facility] [address] [address]Row: (HP) [address], [place] [phone] () [id number]: 10/20/2017 [facility] FICKLEDOB: Insurance:CaresourceP FICKLEDOB: [facility] Number: [id number] [facility] [id number], [place] Date:[place], [place] [address]Uib: (234) Name:[facility] [address] [address]Cwl: (HP) [address] [place] [address] [phone] () [id number]: 10/09/2017 [facility] FICKLEDOB: Insurance:CARESOURCE FICKLEDOB: [facility] [id number] Repository [place] Number: [place], [place] [id number] [place], [place] [address]Fzg: (330) Date:2017-10-09 26[address]Uvo: [id number] [phone] (HP)Tel: ([phone]) Name:[address] (HP) (WP) [address], [place] [phone] (WP) [address]AT: 09/28/2017 KAYA O Primary KAYA O Elizabeth [id number] Insurance:CARESOURCEP FICKLEDOB: [facility] Number: [id number], [place] [id number] Repository [address]Gzg: (330) Date:2017-09-28P O [phone] () [address]ATTN: [place] [address]YJ: 09/28/2017 Secondary NOT GIVENUNK Irma Insurance:SELF PAY [facility] Number: Effective Repository Date:2017-09-28 09/28/2017 KAYA O Primary KAYA O Elizabeth [id number] Insurance:CARESOURCEP FICEDOB: [facility] Number: [id number], [place] [id number] Repository [address]Ffv: (330) Date:2017-09-10P O [phone] () [address]ATTN: [place] [address]AE: 09/28/2017 Secondary NOT GIVENUNK Elizabeth Insurance:SELF PAY [facility] Number: Effective Repository Date:2017-09-28 09/17/2017 KAYA O Primary KAYA O [facility] [id number] Insurance:CARESOURCEP [facility] Number: Repository [place], [place] [id number] [address]Ysi: (330) Date:2012-09-26P.O. [phone] () [address], [place] [address]UG: 09/07/2017 [facility] Primary [facility] Elizabeth [id number] Insurance:CARESOURCEP FICKLEDOB: [facility] Number: [id number], [place] [id number] Repository [address]Sdd: (330) Date:2017-09-07 O [phone] () [address]ATTN: [place] [address]ZX: 09/07/2017 Secondary NOT GIVENUNK Elizabeth Insurance:SELF PAY [facility] Number: Effective Repository Date:2017-09-07 08/27/2017 [facility] Primary [facility] Irma [id number] Insurance:CARESOURCEP FICKLEDOB: [facility] Number: [id number], [place] [id number] Repository [address]Vvw: (330) Date:2017-08-27 O [phone] () [address]ATTN: [place] [address]CR: 08/27/2017 Secondary NOT GIVENUNK Elizabeth Insurance:SELF PAY [facility] Number: Effective Repository Date:2017-08-27 08/25/2017 [facility] FICKLEDOB: Insurance:CaresourceP FICKLEDOB: [facility] Number: [id number] [facility] [id number] [place], [place] Date:[place] [address] Name:[facility] [address] [address] [address], [place] [id number]: 08/24/[address] [facility] FICKLEDOB: Insurance:CARESOURCE FICKLEDOB: [facility] MEDICAIDPolicy [id number] [facility] Number: [place], [place] [id number] [address]Src: (234) Date: () 08/19/2017 [facility] FICKLEDOB: Insurance:CARESOURCE FICKLEDOB: [facility] Number: [id number] [facility] Repository [place], [place] Date:2017-08-18 - [place] [address]Uuw: (131) [id number] 140[address]Vqv: () Name:CD:[id number] [phone] [place] [address] ()Tel: [phone]: () [phone] 08/18/2017 [facility] FICKLEDOB: Insurance:CaresourceP [facility]OB[facility] Number: [id number] [facility] [id number], [place] Date:[place] [address] Name:[facility] [address] [place] [address] [id number]: 08/18/2017 [facility] FICKLEDOB: Insurance:CaresourceP FICKLEDOB: [facility] Number: [id number] [facility] [id number], [place] Date:[place] [address] Name:[facility] [address] [place] [id number]: 07/21/2017 [facility] [id number] Insurance:CARESOURCEP FICKLEDOB: [facility] Number: [id number] [place] [id number] Repository [address]Wdv: (209) Date:2017-07-05P O [phone] () [address]ATTN: [place] [address]OT: 07/21/2017 Secondary NOT GIVENUNK Elizabeth Insurance:SELF PAY [facility] Number: Effective Repository Date:2017-07-21 07/06/2017 [facility] FICKLEDOB: Insurance:CaresourceP FICKLEDOB: [facility] Number: [id number] Repository [place] [id number] [place], [place] Date:[place], [place] [address]Zpm: (234) Name:[facility] [address] [address]Tyq: () [address], [place] [phone] () [id number]: 07/02/2017 [facility] [id number] Insurance:CARESOURCEP FICEDOB: [facility] Number: [id number] [place], [place] [id number] Repository [address]Beu: (330) Date:2017-06-30P O [phone] () [address]ATTN: [place] [address]MS: 07/02/2017 Secondary NOT GIVENUNK Irma Insurance:SELF PAY [facility] Number: Effective Repository Date:2017-06-30 06/28/2017 [facility] [id number] Insurance:CARESOURCEP FICEDOB: [facility] Number: [id number] [place], [place] [id number] Repository [address]Lut: (330) Date:2017-06-15P O [phone] () [address]ATTN: [place] [address]MR: 06/28/2017 Secondary NOT GIVENUNK Elizabeth Insurance:SELF PAY [facility] Number: Effective Repository Date:2017-06-28 06/18/2017 [facility] [id number] Insurance:CARESOURCEP FICEDOB: [facility] Number: [id number] [place] [id number] Repository [address]Wyw: (330) Date:2017-06-18P O [phone] (HP) [address]ATTN: [place] [address]DM: 06/18/2017 Secondary NOT GIVENUNK Irma Insurance:SELF PAY [facility] Number: Effective Repository Date:2017-06-18 06/08/2017 [facility] FICKLEDOB: Insurance:CaresourceP FICKLEDOB: [facility] Number: [id number] Repository [place] [id number] [place] Date:[place], [place] [address]Qbc: (234) Name:[facility] [address] [address]Mxm: (HP) [address], [place] [phone] (HP) [id number]: 06/01/2017 [facility] FICKLEDOB: Insurance:CARESOURCE FICKLEDOB: [facility] MEDICAIDPolicy [id number] [facility] Number: [place], [place] [id number] [place], [place] [address]Ibr: (330) Date:2017-06-01 155[address]Cnl: [id number] [phone] (HP)Tel: (000) Name:[address] (HP) (WP) [address], [place] [phone] (WP) [address]WC: 05/27/2017 [facility] [id number] Insurance:CARESOURCEP FICKLEDOB: [facility] Number: [id number], [place] [id number] Repository [address]Dis: (330) Date:2017-05-27P O [phone] (HP) [address]ATTN: [place] [address]KU: 05/27/2017 Secondary NOT GIVENUNK Irma Insurance:SELF PAY [facility]: Effective Repository Date:2017-05-27 04/29/2017 KAYA O Primary KAYA O [facility] FICKLEDOB: Insurance:CARESOURCE FICKLEDOB: [facility] MEDICAIDPolicy [id number] Repository [place] Number: [place] [id number] [address]Djo: (234) Date: [phone] (HP) 04/29/2017 KAYA O Primary KAYA O [facility] FICKLEDOB: Insurance:CARESOURCE FICKLEDOB: [facility] MEDICAIDPolicy [id number] Repository [place] Number: [place] [id number] [address]Vcm: (234) Date: 249 () 04/26/2017 [facility] FICKLEDOB: Insurance:CaresourceP FICKLEDOB: [facility] Number: [id number] Repository [place] [id number] [place] Date:[place] [address]Jfe: () Name:[facility] [address]Oyn: () [address], [place] 24[address] () [id number]: 04/26/[address] Insurance:[place] MEDICAID [facility] Repository [address]Ovg: (234) Number: [phone] () [id number] Date:[address] [address]XK:
== END ==
PROVIDERS: Family Provider Family Medicine; PCP Family Medicine; Referring Provider Family Medicine; Visit Provider Family Medicine
DX: G62.9 Polyneuropathy, unspecified (principal); D64.9 Anemia, unspecified
CPT/HCPCS: 36415; 82607; 82728; 82746; 83540; 83655; 84165; 84166; 85025; 86038

== ENCOUNTER → 2018-03-15 12:03 | Outpatient (CLI) | payer MEDICAID, SELFPAY ==
[2018-02-10 14:22] VITALS: BMI 33.3
== END ==
PROVIDERS: Family Provider Family Medicine; PCP Family Medicine; Referring Provider Nurse Practitioner Family; Visit Provider Nurse Practitioner Family
DX: R00.0 Tachycardia, unspecified (principal)
CPT/HCPCS: 93225; 93226

== ENCOUNTER → 2018-04-07 16:00 | Outpatient (CLI) | payer MEDICAID, SELFPAY ==
[2018-02-10 14:22] VITALS: BMI 33.3
[2018-04-12 08:50] LABS: Complement CH50 > 60 U/mL (>41)
== END ==
PROVIDERS: Family Provider Family Medicine; PCP Family Medicine; Referring Provider Internal Medicine; Visit Provider Internal Medicine
DX: A69.20 Lyme disease, unspecified (principal); M25.50 Pain in unspecified joint; R53.83 Other fatigue
CPT/HCPCS: 36415; 86162

== ENCOUNTER 2018-05-16 10:41 | Emergency (ER) | payer MEDICAID, SELFPAY ==
[2018-02-10 14:22] VITALS: BMI 33.3
[2018-05-16 10:43] VITALS: BP 133/76; PULSE 51; RESP 16; TEMP 37; O2SAT 100; BMI 34.2
[2018-05-16 10:53] VITALS: BP 136/72; PULSE 96; RESP 15; O2SAT 100
--- NOTE | 2018-05-16 11:04 | EKG12_ITS ---
Test Reason : IRREGULAR HEARTBEAT Blood Pressure : / mmHG Vent. Rate : 103 BPM Atrial Rate : 107 BPM P-R Int : 128 ms QRS Dur : 090 ms QT Int : 344 ms P-R-T Axes : 061 052 047 degrees QTc Int : 450 ms Sinus tachycardia with Premature supraventricular complexes Otherwise normal ECG Confirmed by BÁRBARA WHARTON, ADY ([id number]), editorial specialist VENKAT PRADO ([id number]) on 05/18/2018 9:38:23 AM Referred By: NOHEMY
[2018-05-16 11:48] LABS: Anion Gap 6 (5-15); BUN 8 mg/dL (7-18); BUN/Creat Ratio 10.2 RATIO (10-20); Chloride 108 mmol/L (98-107); Creatinine, Serum 0.78 mg/dL (0.55-1.02); EST Glomerular Filtration Rate 89 mL/min (>60); Est Glom Filt Rate - Afr Amer 108 mL/min (>60); Estimated Creatinine Clearance 80.38 ml/min; Glucose 84 mg/dL (74-106); Magnesium 2.2 mg/dL (1.6-2.6); Potassium 3.5 mmol/L (3.5-5.1); Sodium Level 141 mmol/L (136-145); Thyroid Stim Hormone (TSH) 0.65 uIU/mL (0.358-3.74)
--- NOTE | 2018-05-16 13:37 | ED.VISSUMM ---
- ER Visit Summary Date of Service: 05/16/18 Chief Complaint: Palpitations, lightheadedness not feeling well History of Present Illness: The patient is a 32 F who has multiple medical problems presents with palpitations, lightheadedness not feeling well. Worse past 2 days. She has history of bradycardia. She is on no beta-edson. She has history of exercise-induced asthma. She has not used her inhaler recently. She denies fever, chills night sweats. Denies weight gain or weight loss. She denies visual, ocular auditory symptoms. She denies chest pain. Denies shortness of breath with activity. She denies nausea, vomiting diarrhea. Denies dysuria, frequency, urgency or hematuria. She denies myalgias, arthralgias or back pain. She denies rash. She denies headache, paresthesia, anesthesia motors. She does have history of anxiety. She does feel slightly anxious. She denies urticaria, angioedema or anaphylaxis. She denies problems with bleeding or bruising easily. Patient has an [employer] watch and has tracked her heart rate. The past 6 hours prior to presentation heart rate max 126. Hours 6-12 prior to arrival max of 146. Physical Examination: Vital signs noted. She is bradycardic. Head is atraumatic normocephalic. Pupils are equal round reactive. Extraocular muscles are intact. TMs are pearly white with landmarks noted. Nares patent with no drainage. Posterior pharynx without erythema or exudate. Uvula is midline. There is no dysphonia or dysphasia. Trachea is midline. There is no stridor with auscultation of the neck. Heart initially was regular. She became irregular and noted to have PACs with 3-5 beats of paroxysmal H tachycardia. Complexes were narrow. Lungs are clear to auscultation with fairly room air bilaterally. Abdomen soft nontender. No CVA tenderness noted. There is no asymmetry, swelling, discoloration, leg vein distention, palpable cords or tenderness along the distribution of the deep venous system. Patient is alert and oriented ?3. Motor is 5 over 5. Sensory is intact. DTRs are symmetric with no clonus or Babinski sign. Cranial 2 through 12 are intact. Cerebellar testing is normal. Test Results: EKG sinus tachycardia with frequent PACs. Electronic panel including magnesium normal. TSH normal. Emergency Department Course and Treatment: To evaluate patient's tachycardia TSH was obtained to assess for hypothyroidism, electrolytes and EKG. Treatment Plan: Case discussed with Dr. Pernell Johnson. Patient had a Holter monitor placed and to be seen on Wednesday and he will determine medication to treat her narrow complex tachycardia Disposition: Discharge to home with Holter monitor and cardiology follow-up Impression: Narrow complex paroxysmal tachycardia This note was generated with [employer] dictation software. It may contain incorrect words, spelling, and punctuation that were not noted in review of the chart prior to signing ED Disposition - Plan for ED Patient: Disposition: Home or Assisted Living Instructions: ED Tachycardia Pat PSVT Referrals: Anant Curran DO [Primary Care Provider] - Pernell Johnson MD [STAFF PHYSICIAN] - Additional Instructions: Call Dr. Johnson's his office today to be seen on Wednesday.
--- NOTE | 2018-05-16 13:42 | ED.DCSUM_ITS ---
- ER Visit Summary Date of Service: 05/16/18 Chief Complaint: Palpitations, lightheadedness not feeling well History of Present Illness: The patient is a 32 F who has multiple medical problems presents with palpitations, lightheadedness not feeling well. Worse past 2 days. She has history of bradycardia. She is on no beta-edson. She has history of exercise-induced asthma. She has not used her inhaler recently. She denies fever, chills night sweats. Denies weight gain or weight loss. She denies visual, ocular auditory symptoms. She denies chest pain. Denies shortness of breath with activity. She denies nausea, vomiting diarrhea. Denies dysuria, frequency, urgency or hematuria. She denies myalgias, arthralgias or back pain. She denies rash. She denies headache, paresthesia, anesthesia motors. She does have history of anxiety. She does feel slightly anxious. She denies urticaria, angioedema or anaphylaxis. She denies problems with bleeding or bruising easily. Patient has an [employer] watch and has tracked her heart rate. The past 6 hours prior to presentation heart rate max 126. Hours 6-12 prior to arrival max of 146. Physical Examination: Vital signs noted. She is bradycardic. Head is atraumatic normocephalic. Pupils are equal round reactive. Extraocular muscles are intact. TMs are pearly white with landmarks noted. Nares patent with no drainage. Posterior pharynx without erythema or exudate. Uvula is midline. There is no dysphonia or dysphasia. Trachea is midline. There is no stridor with auscultation of the neck. Heart initially was regular. She became irregular and noted to have PACs with 3-5 beats of paroxysmal H tachycardia. Complexes were narrow. Lungs are clear to auscultation with fairly room air bilaterally. Abdomen soft nontender. No CVA tenderness noted. There is no asymmetry, swelling, discoloration, leg vein distention, palpable cords or tenderness along the distribution of the deep venous system. Patient is alert and oriented ?3. Motor is 5 over 5. Sensory is intact. DTRs are symmetric with no clonus or Babinski sign. Cranial 2 through 12 are intact. Cerebellar testing is normal. Test Results: EKG sinus tachycardia with frequent PACs. Electronic panel includ ing magnesium normal. TSH normal. Emergency Department Course and Treatment: To evaluate patient's tachycardia TSH was obtained to assess for hypothyroidism, electrolytes and EKG. Treatment Plan: Case discussed with Dr. Pernell Johnson. Patient had a Holter monitor placed and to be seen on Wednesday and he will determine medication to treat her narrow complex tachycardia Disposition: Discharge to home with Holter monitor and cardiology follow-up Impression: Narrow complex paroxysmal tachycardia This note was generated with [employer] dictation software. It may contain incorrect words, spelling, and punctuation that were not noted in review of the chart prior to signing ED Disposition - Plan for ED Patient: Disposition: Home or Assisted Living Instructions: ED Tachycardia Pat PSVT Referrals: Anant Curran DO [Primary Care Provider] - Pernell Johnson MD [STAFF PHYSICIAN] - Additional Instructions: Call Dr. Johnson's his office today to be seen on Wednesday.
[2018-05-16 13:50] VITALS: BP 119/87; PULSE 80; RESP 18; O2SAT 98
== END 2018-05-16 14:24 | disposition home or self-care (01) ==
PROVIDERS: Emergency Provider Emergency Medicine; Family Provider Family Medicine; PCP Family Medicine
DX: I47.9 Paroxysmal tachycardia, unspecified (principal); E66.9 Obesity, unspecified; J45.990 Exercise induced bronchospasm; Z79.51 Long term (current) use of inhaled steroids; Z79.899 Other long term (current) drug therapy
CPT/HCPCS: 80048; 83735; 84443; 93005; 93225; 93226; 99283; A4216

== ENCOUNTER → 2018-05-16 14:02 | Outpatient (CLI) | payer MEDICAID, SELFPAY ==
[2018-05-16 10:43] VITALS: BMI 34.2
== END ==
PROVIDERS: Family Provider Family Medicine; PCP Family Medicine; Visit Provider Emergency Medicine
DX: R00.0 Tachycardia, unspecified (principal)
CPT/HCPCS: 93225; 93226

== ENCOUNTER → 2018-05-18 14:33 | Outpatient (CLI) | payer MEDICAID, SELFPAY ==
[2018-05-18 13:22] VITALS: BMI 34.5
[2018-05-18 15:19] LABS: Absolute Lymphocyte Count 3.33 X10^3/ul (0.83-4.51); Absolute Neutrophil Count 5.5 X10^3/uL (2.0-7.7); Basophil# 0.03 X10^3/uL; Basophil% 0.3 % (0-1); Eosinophil# 0.18 X10^3/uL; Eosinophils% 1.9 % (0-5); Hematocrit 39.6 % (37-47); Hemoglobin 12.4 g/dl (12.0-15.0); Lymphocyte # 3.33 X10^3/ul (4.0); Lymphocyte % 34.9 % (19-41); Mean Corp Hgb Conc 31.3 g/gl (32-36); Mean Corpuscular Hgb 26.8 pg (27.0-32.0); Mean Corpuscular Volume 85.7 fL (81-99); Mean Platelet Vol. 9.2 fl (6.2-12.0); Monocyte# 0.49 X10^3/uL; Monocyte% 5.1 % (0-10); Neutrophil # 5.49 X10^3/uL (2.7-7.7); Neutrophil % 57.6 % (47-70); Platelet Count 279 K/mm3 (150-450); RBC Distribution Width CV 13.5 % (11.6-14.6); RBC Distribution Width SD 42.1 fl (35.1-43.9); Red Blood Count 4.62 M/mm3 (4.2-5.4); White Blood Count 9.5 K/mm3 (4.4-11.0)
[2018-05-18 15:59] LABS: POSITIVE COUNT NO; POSITIVE DIFFERENTIAL NO; POSITIVE MORPHOLOGY NO
== END ==
PROVIDERS: Family Provider Family Medicine; PCP Family Medicine; Referring Provider Nurse Practitioner Family; Visit Provider Nurse Practitioner Family
DX: R53.83 Other fatigue (principal)
CPT/HCPCS: 36415; 85025

== ENCOUNTER 2018-05-20 16:51 | Emergency (ER) | payer MEDICAID, SELFPAY ==
[2018-05-18 13:22] VITALS: BMI 34.5
[2018-05-20 16:51] VITALS: BP 152/98; PULSE 83; RESP 16; TEMP 37; O2SAT 100; BMI 34.4
[2018-05-20 17:15] VITALS: BP 138/87; PULSE 83; RESP 16; O2SAT 99
--- NOTE | 2018-05-20 17:35 | RAD_ITS ---
STUDY: X-RAY CHEST REASON FOR EXAM: Female, 32 years old. Palpitations one week TECHNIQUE: PA and lateral views of the chest. COMPARISON: January 18, 2018 chest x-ray FINDINGS: The lungs are clear and expanded. There is no demonstrated pleural abnormality. Normal size heart. Normal mediastinum and jim. Normal visualized pulmonary arteries. Normal visualized aortic arch and descending thoracic aorta. Normal visualized thoracic spine. Normal visualized ribs, clavicles, and shoulders. There is no demonstrated abnormality of the visualized soft tissue structures of the upper abdomen. RAD/Chest PA and Lateral IMPRESSION: Normal x-ray examination of the chest. Electronically Signed: Judy Bermudez MD at 18:42 EST Tel , Service support ,
--- NOTE | 2018-05-20 17:35 | EKG12_ITS ---
Test Reason : PALPATATIONS Blood Pressure : / mmHG Vent. Rate : 087 BPM Atrial Rate : 087 BPM P-R Int : 126 ms QRS Dur : 090 ms QT Int : 394 ms P-R-T Axes : 055 057 050 degrees QTc Int : 474 ms Sinus rhythm with marked sinus arrhythmia with Premature supraventricular complexes Otherwise normal ECG Confirmed by KYLE WHARTON, KATIE ([id number]), multimedia editor SHOLA TONEY (87) on 05/24/2018 4:44:41 PM Referred By: KENAN Confirmed By:KATIE WRIGHT MD
[2018-05-20] MEDS: Aspirin 81 MG TAB.CHEW 324 MG PO (17:44)
[2018-05-20 17:47] LABS: Absolute Lymphocyte Count 3.92 X10^3/ul (0.83-4.51); Absolute Neutrophil Count 5.9 X10^3/uL (2.0-7.7); Basophil# 0.03 X10^3/uL; Basophil% 0.3 % (0-1); Eosinophil# 0.22 X10^3/uL; Eosinophils% 2.1 % (0-5); Hemoglobin 13.4 g/dl (12.0-15.0); Lymphocyte # 3.92 X10^3/ul (4.0); Lymphocyte % 36.6 % (19-41); Mean Corp Hgb Conc 31.9 g/gl (32-36); Mean Corpuscular Hgb 27.2 pg (27.0-32.0); Mean Corpuscular Volume 85.4 fL (81-99); Mean Platelet Vol. 9.3 fl (6.2-12.0); Monocyte# 0.61 X10^3/uL; Monocyte% 5.7 % (0-10); Neutrophil # 5.89 X10^3/uL (2.7-7.7); Platelet Count 305 K/mm3 (150-450); RBC Distribution Width CV 13.4 % (11.6-14.6); RBC Distribution Width SD 41.3 fl (35.1-43.9); Red Blood Count 4.92 M/mm3 (4.2-5.4); White Blood Count 10.7 K/mm3 (4.4-11.0)
[2018-05-20 17:48] LABS: POSITIVE COUNT NO; POSITIVE DIFFERENTIAL NO; POSITIVE MORPHOLOGY NO
[2018-05-20 18:04] LABS: Anion Gap 9 (5-15); BUN 10 mg/dL (7-18); BUN/Creat Ratio 13.5 RATIO (10-20); Calcium,Total 9.1 mg/dL (8.5-10.1); Chloride 105 mmol/L (98-107); Creatinine, Serum 0.74 mg/dL (0.55-1.02); EST Glomerular Filtration Rate 95 mL/min (>60); Est Glom Filt Rate - Afr Amer 115 mL/min (>60); Estimated Creatinine Clearance 84.72 ml/min; Glucose 84 mg/dL (74-106); Magnesium 2.3 mg/dL (1.6-2.6); Potassium 3.6 mmol/L (3.5-5.1); Sodium Level 142 mmol/L (136-145); Thyroid Stim Hormone (TSH) 0.74 uIU/mL (0.358-3.74)
[2018-05-20 19:07] VITALS: BP 109/63; PULSE 77; RESP 19; O2SAT 98
--- NOTE | 2018-05-20 19:54 | ED.VISSUMM ---
- ER Visit Summary Date of Service: 05/20/18 Chief Complaint: Palpitations History of Present Illness: The patient is a 32 F who presents with palpitations that have been intermittent over the past week. Patient states she has some substernal burning and sharp pain into her left chest. Patient states she feels her heart skipping beats. Patient states she was started on Cardizem and took her first dose today. Patient states she still has palpitations. Patient states her son was recently diagnosed with influenza. Patient admits to some nausea. Patient admits to some lightheadedness and acid reflux symptoms. Patient admits to some intermittent shortness of breath. Physical Examination: Vital signs are stable. Patient is afebrile. Patient is in no acute distress. Oral mucosa is pink and moist. Neck is supple. Trachea is midline. There is no JVD noted. Heart was regular rate and rhythm. Lungs are clear and equal bilateral. Abdomen is soft. Bowel sounds are normal. There is no tenderness. There is no guarding noted. Skin is warm dry. Cranial nerves II through XII are intact. There are no focal motor or sensory deficits noted. The remaining physical exam is within normal limits. Test Results: EKG showed normal sinus rhythm with a rate of 87. There are occasional PACs noted. There are no acute changes. CBC, basic metabolic profile, troponin, TSH, and magnesium were obtained and were all normal. PA and lateral chest x-ray was obtained and was normal. Emergency Department Course and Treatment: Patient was advised that the only thing we could find here was occasional ectopic beats. 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 Patient was advised she may need prolonged cardiac monitoring since she feels her heart racing at times at home. Patient understood and was agreeable with the plan. All questions were answered. Disposition: Discharge home Impression: Palpitations This note was generated with [employer] dictation software. It may contain incorrect words, spelling, and punctuation that were not noted in review of the chart prior to signing ED Disposition - Plan for ED Patient: Disposition: Home or Assisted Living Diagnosis: Ectopic cardiac beats Instructions: ED Palpitations Referrals: Anant Curran DO [Primary Care Provider] -
[2018-05-20 20:11] VITALS: BP 130/76; PULSE 74; RESP 14; O2SAT 98
== END 2018-05-20 20:11 | disposition home or self-care (01) ==
PROVIDERS: Emergency Provider Emergency Medicine; Family Provider Family Medicine; PCP Family Medicine
DX: R00.2 Palpitations (principal); M06.9 Rheumatoid arthritis, unspecified; K21.9 Gastro-esophageal reflux disease without esophagitis; Z79.51 Long term (current) use of inhaled steroids; Z79.899 Other long term (current) drug therapy
CPT/HCPCS: 71046; 80048; 83735; 84443; 84484; 85025; 93005; 99285; A4216

== ENCOUNTER → 2018-05-24 10:24 | Outpatient (CLI) | payer MEDICAID, SELFPAY ==
[2018-05-20 16:51] VITALS: BMI 34.4
[2018-05-24 11:33] LABS: Erythrocyte Sedimentation Rate 9 mm/hr (0-20)
[2018-05-24 11:53] LABS: CPK Total, Creatine Kinase 49 U/L (26-192)
== END ==
PROVIDERS: Family Provider Family Medicine; PCP Family Medicine; Referring Provider Family Medicine; Visit Provider Family Medicine
DX: R00.2 Palpitations (principal); R53.82 Chronic fatigue, unspecified; G90.1 Familial dysautonomia [Riley-Day]; R10.9 Unspecified abdominal pain
CPT/HCPCS: 36415; 82533; 82550; 85652; 86140

== ENCOUNTER → 2018-06-10 13:04 | Outpatient (REF) | payer MEDICAID, SELFPAY ==
[2018-06-08 11:02] VITALS: BMI 34.5
== END ==
LOC: CVS 13:04
PROVIDERS: Family Provider Family Medicine; PCP Family Medicine; Referring Provider Nurse Practitioner Family; Visit Provider Nurse Practitioner Family
DX: I49.49 Other premature depolarization (principal); R53.83 Other fatigue
CPT/HCPCS: 93270

== ENCOUNTER 2018-06-16 00:07 | Emergency (ER) | payer MEDICAID, SELFPAY ==
[2018-06-08 11:02] VITALS: BMI 34.5
[2018-06-16 00:08] VITALS: BP 124/81; PULSE 81; RESP 16; TEMP 37.1; O2SAT 100; BMI 34.6
--- NOTE | 2018-06-16 00:20 | ED.VIS.GEN ---
History of Present Illness Chief Complaint: Vag Bleeding Informant: Patient Narrative: Patient presents with vaginal bleeding. She stated she started her period yesterday. She states that she is been through 10 pads today. She felt lightheaded this evening and wanted to make sure that her blood counts were not too low. She has been passing clots. He is having no abdominal pain. She had a left oophorectomy remotely. She has had a history of endometriosis and dysfunctional uterine bleeding. Her last menstrual period was 3 months ago. This is not uncommon for her. She states that when she misses periods she will have a heavy period. She has been on multiple different oral contraceptives with no relief in the past. Current severity is mild. She has a very mild frontal headache that she has not taken anything for. Past Medical History - Allergies and Home Meds Allergies/Adverse Reactions: Allergies acetaminophen [From Vicodin] Allergy (Severe, Verified 06/16/18 00:11) Itching cyclobenzaprine [From Flexeril] Allergy (Severe, Verified 06/16/18 00:11) Mental status change hydrocodone [From Vicodin] Allergy (Severe, Verified 06/16/18 00:11) Itching latex Allergy (Mild, Verified 06/16/18 00:11) Unknown cephalexin monohydrate [From Keflex] Allergy (Verified 06/16/18 00:11) Anaphylaxis eucalyptus Adverse Reaction (Severe, Verified 06/16/18 00:11) tachycardia, close airway NSAIDS (Non-Steroidal Anti-Inflamma Adverse Reaction (Severe, Verified 06/16/18 00:11) GI upset tizanidine Adverse Reaction (Severe, Verified 06/16/18 00:11) Low HR doxycycline Adverse Reaction (Verified 06/16/18 00:11) Diarrhea Primary Care Physician: Anant Curran DO [Primary Care Provider] - Prior records reviewed: Yes Past Medical History: - - Endometriosis, symptomatic bradycardia, ovarian cyst, polycystic ovarian syndrome, ankylosing spondylitis, asthma Surgical History: - - History of left fallopian tube removal. Hernia, Lives: With Family Smoking Status: Never smoker Alcohol: None Drugs: None Review of Systems General: Denies: Chills, Fever, Sweats Eyes: Denies: Visual changes - bilaterally, Diplopia ENT: Denies: Rhinorrhea, Sore throat Cardiovascular: Denies: Chest pain, Palpitations Respiratory: Denies: Dyspnea, Cough, Dyspnea on exertion Gastrointestinal: Denies: Abdominal pain, Nausea, Vomiting, Diarrhea, Melena, Hematochezia Genitourinary: Reports: - - The HPI. Denies: Dysuria, Hematuria, Frequency Musculoskeletal: Denies: Back pain, Extremity Pain Skin: Denies: Rash, Wounds Neurological: Reports: Headache. Denies: Weakness, Numbness Physical Exam Vital Signs/Narrative: Vital Signs Temp Pulse Resp BP Pulse Ox 06/16/18 00:08 98.7 F 81 16 124/81 H 100 General: Well nourished, Well developed, No Acute Distress Head: Normocephalic, Atraumatic Eyes: Perrl, EOMI ENT: Moist mucous membranes, No rhinorrhea Neck: Supple, Nontender Cardiovascular: Regular rate, Regular rhythm, No murmurs Respiratory: No distress, CTA bilaterally, Chest nontender Abdomen: Soft, Nontender, Nondistended, Normal bowel sounds : - - Exam done with the speculum. She has a very mild amount of bleeding from her eyes. She has one small clot. No significant bleeding. Her pad showed very light bleeding Back: Nontender, Normal Inspection Extremities: Nontender, No edema Skin: Normal color, No rash Neurological: Alert, Oriented x3, Cranial nerves II-XII grossly intact, Normal Strength, Normal Sensation Psychological: Normal affect, Normal Mood Diagnostic/Tx/Re-eval - Medical Decision Making She is resting comfortably. Given IV fluids. Lab work obtained. Lab work shows a normal hemoglobin. negative. [place] better after treatment. At this time I think she is likely just more orthostatic. She is been concerned about the amount of bleeding she is having. I feel she has dysfunctional uterine bleeding. I do not think she needs emergent treatment. 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 I do not feel she is having any significant cardiac cause of her symptoms. ED Disposition - Plan for ED Patient: Disposition: Home or Assisted Living Instructions: ED Bleed Irregular Vaginal Referrals: Anant Curran DO [Primary Care Provider] -
[2018-06-16] MEDS: 0.9% Normal Saline 1,000 ML 1000 ML IV (00:25)
[2018-06-16 00:38] LABS: Absolute Lymphocyte Count 4.04 X10^3/ul (0.83-4.51); Absolute Neutrophil Count 5.1 X10^3/uL (2.0-7.7); Basophil# 0.03 X10^3/uL; Basophil% 0.3 % (0-1); Eosinophil# 0.25 X10^3/uL; Eosinophils% 2.5 % (0-5); Hematocrit 39.1 % (37-47); Hemoglobin 12.5 g/dl (12.0-15.0); Lymphocyte # 4.04 X10^3/ul (4.0); Lymphocyte % 39.9 % (19-41); Mean Corpuscular Hgb 27.2 pg (27.0-32.0); Mean Corpuscular Volume 85.2 fL (81-99); Mean Platelet Vol. 8.8 fl (6.2-12.0); Monocyte# 0.74 X10^3/uL; Monocyte% 7.3 % (0-10); Neutrophil # 5.06 X10^3/uL (2.7-7.7); Neutrophil % 49.9 % (47-70); POSITIVE COUNT NO; POSITIVE DIFFERENTIAL NO; POSITIVE MORPHOLOGY NO; Platelet Count 326 K/mm3 (150-450); RBC Distribution Width CV 13.1 % (11.6-14.6); RBC Distribution Width SD 40.6 fl (35.1-43.9); Red Blood Count 4.59 M/mm3 (4.2-5.4); White Blood Count 10.1 K/mm3 (4.4-11.0)
[2018-06-16 01:16] LABS: Pregnancy, Serum, hCG Quali. NEGATIVE Negative (0-9 Nonpreg)
[2018-06-16 01:26] VITALS: BP 115/67; PULSE 80; RESP 20; O2SAT 100
[2018-06-16 01:33] VITALS: BP 112/57; PULSE 74; RESP 16; O2SAT 98
== END 2018-06-16 01:33 | disposition home or self-care (01) ==
PROVIDERS: Emergency Provider Emergency Medicine; Family Provider Family Medicine; PCP Family Medicine
DX: N93.9 Abnormal uterine and vaginal bleeding, unspecified (principal); Z79.51 Long term (current) use of inhaled steroids; Z79.899 Other long term (current) drug therapy
CPT/HCPCS: 84703; 85025; 96360; 99283; J7030

== ENCOUNTER → 2018-06-21 07:52 | Outpatient (CLI) | payer MEDICAID, SELFPAY ==
[2018-06-16 00:08] VITALS: BMI 34.6
--- NOTE | 2018-06-21 08:01 | CT_ITS ---
STUDY: CT ABDOMEN AND PELVIS WITHOUT CONTRAST REASON FOR EXAM: Female, 32 years old. ADRENAL INSUFFICIENCY, HX-KS, , inguinal hernia, lithotripsy, unilateral salpingoophrectomy RADIATION DOSAGE (If Supplied By Facility): CTDIvol = ( 15.13 ) mGy, DLP = ( 733.16 ) mGycm TECHNIQUE: Transaxial images were obtained from the dome of the diaphragm to the symphysis pubis without oral contrast, and without intravenous contrast. Sagittal and coronal images were reconstructed. Individualized dose optimization techniques were used for this CT. COMPARISON: January 20, 2017 and November 24, 2016 FINDINGS: The visualized lung bases are unremarkable. The visualized portions of the heart are within normal limits. Normal liver. Normal gallbladder and extrahepatic biliary system. Normal spleen. Normal pancreas. Normal bilateral adrenal glands. Bilateral nephrolithiasis is noted and this is progressive when compared to the previous exam. There are punctate stones now noted in the upper mid and lower poles of the right kidney and within the mid and lower pole the left kidney. The largest visualized calculus which appears present in the midpole the left kidney has a diameter of approximately 3 mm. There is no evidence of hydronephrosis. There is no evidence of hydroureter, ureterolithiasis or bladder stone. Normal visualized stomach. Normal small intestine. Normal colon. The appendix is visualized and appears normal. Normal abdominal aorta. Normal inferior vena cava. Normal retroperitoneum. The urinary bladder is contracted. No bladder stones. Multiple pelvic phleboliths are present. The uterus has a unremarkable appearance. The remaining right ovary has an unremarkable appearance. No adnexal mass. There is a small umbilical hernia containing fat. Normal osseous structures. CT/Abdomen/Pelvis without Cont IMPRESSION: Bilateral nephrolithiasis, increased in number and prominence when compared to previous study. No evidence of ureteral stone or obstruction. Electronically Signed: Elayne Hunter MD at 10:56 EDT , Service support ,
== END ==
PROVIDERS: Family Provider Family Medicine; PCP Family Medicine; Referring Provider Nurse Practitioner Family; Visit Provider Nurse Practitioner Family
DX: E27.40 Unspecified adrenocortical insufficiency (principal); R53.83 Other fatigue
CPT/HCPCS: 74176

== ENCOUNTER → 2018-07-08 | Outpatient (CLI) | payer MEDICAID, SELFPAY ==
[2018-07-08 09:23] VITALS: BMI 34.6
--- NOTE | 2018-07-08 09:36 | RAD_ITS ---
STUDY: X-RAY - PELVIS AND LEFT HIP REASON FOR EXAM: Hip pain. TECHNIQUE: 2 views of the pelvis and hip. COMPARISON: Radiographs 09/28/2017. FINDINGS: There are small pelvic phleboliths. Normal bilateral iliac wings, sacroiliac joints and visualized sacrum. Normal bilateral superior and inferior pubic rami. Normal pubic symphysis. Normal bilateral ischial tuberosities. Normal visualized femoral head. Normal acetabulum. Normal hip joint. RAD/HIP, UNI W/ Pelvis 2-3 Views IMPRESSION: Normal x-ray examination of the pelvis and left hip. Electronically Signed: Uday Cabrales MD at 15:29 EDT Tel , Service support ,
--- NOTE | 2018-07-08 10:13 | RAD_ITS ---
STUDY: X-RAY - LUMBOSACRAL SPINE REASON FOR EXAM: Female, 32 years old. Back pain TECHNIQUE: 4 view(s) of the lumbosacral spine including lateral flexion and extension the were obtained. COMPARISON: September 28, 2017 FINDINGS: Normal lumbar lordosis. There is no substantial scoliosis. There is normal alignment of the vertebrae. There is limited flexion and extension with no abnormal motion. Normal vertebral bodies and endplates. Normal disc space heights. Normal bilateral sacral ala, sacroiliac joints, and visualized sacrum. Normal visualized soft tissue structures. RAD/L/S Spine Comp/w Bending Views IMPRESSION: Limited flexion and extension. Otherwise, normal examination. Electronically Signed: Danny Ha MD at 15:58 EDT , Service support ,
== END | disposition home or self-care (01) ==
PROVIDERS: Family Provider Family Medicine; PCP Family Medicine; Referring Provider Orthopaedic Surgery; Visit Provider Orthopaedic Surgery
DX: M54.5 Low back pain (principal); M25.552 Pain in left hip; J02.9 Acute pharyngitis, unspecified; R30.0 Dysuria
CPT/HCPCS: 72114; 73502; 81001; 87086; 87088

== ENCOUNTER → 2018-07-08 | Outpatient (CLI) | payer MEDICAID, SELFPAY ==
[2018-07-08 11:00] VITALS: BMI 34.6
[2018-07-08 15:51] LABS: Bacteria 0 SEEN /hpf (None Seen); Mucous, Urine 0 SEEN /hpf (<or=2+)
[2018-07-08 16:00] LABS: Color, Urine Yellow (Yellow); Glucose, Dipstick Normal (Normal); Ketone-Dipstick Negative (Negative); Leukocyte Esterase-Dipstick Negative /ul (Negative); Nitrite-Dipstick Negative (Negative); Occult Blood-Urine Negative /ul (Negative); Protein-Dipstick Negative (Negative); Specific Gravity, Urine 1.015 (1.002-1.030); Urine Bilirubin Dipstick Negative (Negative); Urine Clarity Sl. Cloudy (Clear); Urine Urobilinogen Normal (Normal)
[2018-07-08 17:01] LABS: Squamous Epithelial Cells - UA 0-5 SEEN /hpf (5-10)
[2018-07-08 17:03] LABS: Red Blood Cells-Urine 0-5 SEEN /hpf (0-5); White Blood Cells 0-5 SEEN /hpf (0-5)
[2018-07-08 17:05] LABS: Renal Epithelial Cells 0-5 SEEN /hpf (0-5)
== END | disposition home or self-care (01) ==
LOC: LABSPEC 15:15
PROVIDERS: Family Provider Family Medicine; PCP Family Medicine; Referring Provider Physician Assistant Surgical; Visit Provider Physician Assistant Surgical
DX: J02.9 Acute pharyngitis, unspecified (principal)
CPT/HCPCS: 81001; 87086; 87088

== ENCOUNTER → 2018-07-13 | Outpatient (CLI) | payer MEDICAID, SELFPAY ==
[2018-07-08 11:00] VITALS: BMI 34.6
[2018-07-13 10:47] LABS: Mucous, Urine 0 SEEN /hpf (<or=2+)
[2018-07-13 12:20] LABS: Color, Urine Yellow (Yellow); Glucose, Dipstick Normal (Normal); Ketone-Dipstick Negative (Negative); Leukocyte Esterase-Dipstick 25 /ul (Negative); Nitrite-Dipstick Negative (Negative); Occult Blood-Urine 50 /ul (Negative); Protein-Dipstick Negative (Negative); Specific Gravity, Urine 1.025 (1.002-1.030); Urine Bilirubin Dipstick Negative (Negative); Urine Clarity Clear (Clear); Urine Urobilinogen Normal (Normal)
[2018-07-13 12:29] LABS: Bacteria 2+ /hpf (None Seen); Calcium Oxalate Crystals Ur 1+ /hpf (<or=2+); Red Blood Cells-Urine 5-10 SEEN /hpf (0-5); Squamous Epithelial Cells - UA 0-5 SEEN /hpf (5-10); White Blood Cells 0-5 SEEN /hpf (0-5)
== END | disposition home or self-care (01) ==
LOC: LABSPEC 10:42
PROVIDERS: Family Provider Family Medicine; PCP Family Medicine; Visit Provider Family Medicine
DX: R10.9 Unspecified abdominal pain (principal); R39.15 Urgency of urination; R31.9 Hematuria, unspecified
CPT/HCPCS: 81001

== ENCOUNTER 2018-07-18 13:35 | Emergency (ER) | payer MEDICAID, SELFPAY ==
[2018-07-08 11:00] VITALS: BMI 34.6
[2018-07-18 13:36] VITALS: BP 134/81; PULSE 103; RESP 16; TEMP 36.8; O2SAT 99; BMI 33.8
[2018-07-18 14:17] LABS: Bacteria 0 SEEN /hpf (None Seen); Mucous, Urine 0 SEEN /hpf (<or=2+); Red Blood Cells-Urine 0 SEEN /hpf (0-5); White Blood Cells 0 SEEN /hpf (0-5)
[2018-07-18 14:24] LABS: Color, Urine Yellow (Yellow); Glucose, Dipstick Normal (Normal); Ketone-Dipstick Negative (Negative); Leukocyte Esterase-Dipstick Negative /ul (Negative); Nitrite-Dipstick Negative (Negative); Occult Blood-Urine 10 /ul (Negative); Protein-Dipstick Negative (Negative); Urine Bilirubin Dipstick Negative (Negative); Urine Clarity Clear (Clear); Urine Urobilinogen Normal (Normal)
[2018-07-18 14:32] LABS: Squamous Epithelial Cells - UA 0-5 SEEN /hpf (5-10)
--- NOTE | 2018-07-18 15:12 | US_ITS ---
STUDY: RENAL ULTRASOUND - COMPLETE REASON FOR EXAM: Female, 32 years old. History of renal stones. Hematuria. Bilateral flank pain. TECHNIQUE: Ultrasound evaluation of the kidneys was performed with real-time and static alejandro-scale imaging. COMPARISON: CT abdomen and pelvis 06/21/2018.. FINDINGS: RIGHT KIDNEY: 11.6 x 4.8 x 4.6) meters. Normal cortical thickness and echotexture, thickness 1.4 cm. There is no mass, cyst or hydronephrosis. A few small nonobstructing calyceal calculi are present. Largest 4 mm. LEFT KIDNEY: 10.7 x 4.8 x 4.7 cm. Normal cortical thickness 1.7 cm, normal cortical echotexture. There is no mass, cyst or hydronephrosis. A few small nonobstructing calyceal calculi, the largest measuring 5 mm. BLADDER: Normal US/Kidney and Bladder IMPRESSION: Small nonobstructing calyceal calculi of each kidney without hydronephrosis. Otherwise normal sonographic appearance of each kidney. Electronically Signed: Josue Werner MD at 16:56 EDT Tel , Service support ,
--- NOTE | 2018-07-18 15:13 | ED.VISSUMM ---
- ER Visit Summary Date of Service: 07/18/18 Chief Complaint: Flank pain History of Present Illness: The patient is a 32 F intermittent flank pain little over a week. Initially started both sides, saw PCP treated for renal colic with oxycodone and placed on Bactrim for 5 days. States pain has been persistent since yesterday, history of kidney stones requiring lithotripsy however last time was in 2012. States he passed a kidney stone this past March. Still has urine frequency. No fevers. Nausea without vomiting. Reports last imaging with CT was a month ago would like to avoid this. had oxycodones which she took 2 over the weekend however had concerns with constipation. Denies history of kidney injuries or gastric ulcers, however reports Toradol causes ecchymosis. Has appointment with new urologist for which she thinks is Dr. Patel. Physical Examination: General: Alert and oriented ?3, appears uncomfortable HEENT: Normocephalic, atraumatic. Moist mucosa membranes Neck: supple, nontender. Cardiovascular: Regular rate and rhythm, no murmurs Respiratory: Normal breath sounds, symmetric, no distress Abdomen: Soft, nontender, nondistended Back: No CVA tenderness, no rash. Extremities: Nontender, no edema, pulses intact ?4 Neuro: no focal neurological deficits. Test Results: UA with hematuria. Hemoccult 12.5. White cell 7.8. Creatinine 0.84. Renal ultrasound no hydro-, renal stones noted. Emergency Department Course and Treatment: Patient presenting with renal colic symptoms appears uncomfortable. Urine from triage positive for hematuria. She requests avoiding radiation due to recent CT scans and history of stones in the past. There is no infection in her urine. Did check labs was normal. Given 2 dose morphine, Zofran IV fluids. She did have some improvement of symptoms. She will follow-up with her urologist. Signs and symptoms discussed return. She does have oxycodone to use discussed using her stool softener twice a day and increasing her fiber to avoid constipation. All questions were answered. Treatment Plan: [] Disposition: Discharge Impression: 1. Left flank pain 2. Hematuria This note was generated with [employer] dictation software. It may contain incorrect words, spelling, and punctuation that were not noted in review of the chart prior to signing ED Disposition - Plan for ED Patient: Disposition: Home or Assisted Living Diagnosis: Left flank pain, Hematuria Instructions: ED Flank Pain Uncertain Cause, ED Hematuria Referrals: Anant Curran DO [Primary Care Provider] - Agnieszka Patel MD [STAFF PHYSICIAN] - 3-5 Days
[2018-07-18] MEDS: Morphine 4 MG/ML Syringe IV ×2 (15:45→17:21)
[2018-07-18] MEDS: 0.9% Normal Saline 1,000 ML 250 ML IV ×2 (15:45→17:21)
[2018-07-18] MEDS: Ondansetron 4 MG/2 ML Vial IV (15:48)
[2018-07-18 16:10] LABS: Absolute Lymphocyte Count 2.39 X10^3/ul (0.83-4.51); Absolute Neutrophil Count 4.9 X10^3/uL (2.0-7.7); Basophil# 0.02 X10^3/uL; Basophil% 0.3 % (0-1); Eosinophil# 0.19 X10^3/uL; Eosinophils% 2.4 % (0-5); Hematocrit 38.2 % (37-47); Hemoglobin 12.5 g/dl (12.0-15.0); Lymphocyte # 2.39 X10^3/ul (4.0); Lymphocyte % 30.5 % (19-41); Mean Corp Hgb Conc 32.7 g/gl (32-36); Mean Corpuscular Hgb 27.4 pg (27.0-32.0); Mean Corpuscular Volume 83.8 fL (81-99); Mean Platelet Vol. 8.8 fl (6.2-12.0); Monocyte# 0.38 X10^3/uL; Monocyte% 4.8 % (0-10); Neutrophil # 4.85 X10^3/uL (2.7-7.7); Neutrophil % 61.9 % (47-70); POSITIVE COUNT NO; POSITIVE DIFFERENTIAL NO; POSITIVE MORPHOLOGY NO; Platelet Count 318 K/mm3 (150-450); RBC Distribution Width CV 13.5 % (11.6-14.6); RBC Distribution Width SD 40.8 fl (35.1-43.9); Red Blood Count 4.56 M/mm3 (4.2-5.4); White Blood Count 7.8 K/mm3 (4.4-11.0)
[2018-07-18 16:24] LABS: Anion Gap 7 (5-15); BUN 9 mg/dL (7-18); BUN/Creat Ratio 10.7 RATIO (10-20); Chloride 106 mmol/L (98-107); Creatinine, Serum 0.84 mg/dL (0.55-1.02); EST Glomerular Filtration Rate 82 mL/min (>60); Est Glom Filt Rate - Afr Amer 99 mL/min (>60); Estimated Creatinine Clearance 74.64 ml/min; Glucose 89 mg/dL (74-106); Potassium 4.3 mmol/L (3.5-5.1); Sodium Level 139 mmol/L (136-145)
[2018-07-18 17:48] VITALS: BP 133/81; PULSE 84; RESP 16; O2SAT 99
[2018-07-18 18:27] VITALS: BP 118/71; PULSE 69; RESP 16; O2SAT 98
== END 2018-07-18 18:29 | disposition home or self-care (01) ==
PROVIDERS: Emergency Provider Emergency Medicine; Family Provider Family Medicine; PCP Family Medicine
DX: R31.9 Hematuria, unspecified (principal); R10.9 Unspecified abdominal pain; K21.9 Gastro-esophageal reflux disease without esophagitis; Z87.442 Personal history of urinary calculi
CPT/HCPCS: 76770; 80048; 81001; 85025; 96361; 96374; 96375; 96376; 99285; J7040; J2405

== ENCOUNTER 2018-08-21 21:56 | Emergency (ER) | payer MEDICAID, SELFPAY ==
[2018-08-08 11:05] VITALS: BMI 34.5
[2018-08-21 21:56] VITALS: BP 144/86; PULSE 71; RESP 18; TEMP 36.6; O2SAT 99; BMI 32.9
--- NOTE | 2018-08-21 22:05 | ED.RN ---
CALLED FOR EKG PER RN REQUEST, PULLED OLD EKGS FOR
--- NOTE | 2018-08-21 22:42 | RAD_ITS ---
STUDY: X-RAY CHEST REASON FOR EXAM: Female, 33 years old. Right-sided chest pain. TECHNIQUE: Single AP portable view of the chest. COMPARISON: 05/20/2018. FINDINGS: The lungs are clear and expanded. There is no demonstrated pleural abnormality. Normal size heart. Normal mediastinum and jim. Normal visualized pulmonary arteries. Normal visualized aortic arch and descending thoracic aorta. Normal visualized thoracic spine. Normal visualized ribs, clavicles, and shoulders. There is no demonstrated abnormality of the visualized soft tissue structures of the upper abdomen. RAD/Chest 1 View (Portable) IMPRESSION: Normal x-ray examination of the chest. Electronically Signed: Matheus Garcia MD at 23:04 EDT , Service support ,
--- NOTE | 2018-08-21 22:42 | ED.VISSUMM ---
- ER Visit Summary Date of Service: 08/21/18 Chief Complaint: Palpitations with nausea History of Present Illness: The patient is a 33 F. Crohn's, kidney stones and endometriosis. Patient states she has not been feeling well for several weeks with nausea. Denies any dysuria. And today had palpitations and felt like she might pass out. She denies any LOC. This is been going on for some time. She is seen cardiology for this and has had a nuclear stress test and also an echocardiogram. Without any specific diagnosis. Physical Examination: Well-appearing young female. Vital signs are stable afebrile. Pulse ox 9 9% on room air. No distress. HEENT exam unremarkable. Neck nontender no lymphadenopathy. Lungs clear to auscultation bilaterally. Heart regular rhythm no murmur. Rate about 80. Abdomen soft nontender normal bowel sounds no peritoneal signs. Extremities moves all 4. Calves nontender. Equal symmetrical company miner blasting strength. Dorsi plantar flexion intact. Back nontender. Skin normal. Neurologically she is awake alert with no focal motor deficits. Test Results: CBC normal. Chemistry normal. Troponin normal. Chest x-ray normal with normal cardiac silhouette mediastinum read both by myself and radiologist. EKG sinus rhythm rate 84 with no signs of dysrhythmia or premature beats. No signs of ischemia. Emergency Department Course and Treatment: Patient having palpitations. He has had work-ups before. Clinically her exam is unremarkable. Will be given Zofran for nausea. A liter of fluid. Repeat exam at 2350 patient is doing well. Be discharged to home. I did go over all test results with her and family. Treatment Plan: Follow-up with her primary care physician. Disposition: Discharge Impression: Palpitations of uncertain etiology This note was generated with [employer] dictation software. It may contain incorrect words, spelling, and punctuation that were not noted in review of the chart prior to signing ED Disposition - Plan for ED Patient: Referrals: Anant Curran DO [Primary Care Provider] -
--- NOTE | 2018-08-21 22:46 | ED.DCSUM_ITS ---
- ER Visit Summary Date of Service: 08/21/18 Chief Complaint: Palpitations with nausea History of Present Illness: The patient is a 33 F. Crohn's, kidney stones and endometriosis. Patient states she has not been feeling well for several weeks with nausea. Denies any dysuria. And today had palpitations and felt like she might pass out. She denies any LOC. This is been going on for some time. She is seen cardiology for this and has had a nuclear stress test and also an echocardiogram. Without any specific diagnosis. Physical Examination: Well-appearing young female. Vital signs are stable afebrile. Pulse ox 9 9% on room air. No distress. HEENT exam unremarkable. Neck nontender no lymphadenopathy. Lungs clear to auscultation bilaterally. Heart regular rhythm no murmur. Rate about 80. Abdomen soft nontender normal bowel sounds no peritoneal signs. Extremities moves all 4. Calves nontender. Equal symmetrical branch credit counselor strength. Dorsi plantar flexion intact. Back nontender. Skin normal. Neurologically she is awake alert with no focal motor deficits. Test Results: CBC normal. Chemistry normal. Troponin normal. Chest x-ray normal with normal cardiac silhouette mediastinum read both by myself and radiologist. EKG sinus rhythm rate 84 with no signs of dysrhythmia or premature beats. No signs of ischemia. Emergency Department Course and Treatment: Patient having palpitations. He has had work-ups before. Clinically her exam is unremarkable. Will be given Zofran for nausea. A liter of fluid. Repeat exam at 2350 patient is doing well. Be discharged to home. I did go over all test results with her and family. Treatment Plan: Follow-up with her primary care physician. Disposition: Discharge Impression: Palpitations of uncertain etiology This note was generated with [employer] dictation software. It may contain incorrect words, spelling, and punctuation that were not noted in review of the chart prior to signing ED Disposition - Plan for ED Patient: Referrals: Anant Curran DO [Primary Care Provider] -
[2018-08-21] MEDS: Ondansetron 4 MG/2 ML Vial IV (23:01)
[2018-08-21] MEDS: 0.9% Normal Saline 1,000 ML 999 ML IV (23:01)
[2018-08-21 23:02] VITALS: BP 132/92; PULSE 65; RESP 12; O2SAT 100
[2018-08-21 23:08] LABS: Absolute Lymphocyte Count 3.32 X10^3/ul (0.83-4.51); Absolute Neutrophil Count 5.4 X10^3/uL (2.0-7.7); Basophil# 0.02 X10^3/uL; Basophil% 0.2 % (0-1); Eosinophils% 3.1 % (0-5); Hemoglobin 12.1 g/dl (12.0-15.0); Lymphocyte # 3.32 X10^3/ul (4.0); Lymphocyte % 34.3 % (19-41); Mean Corp Hgb Conc 32.7 g/gl (32-36); Mean Corpuscular Hgb 27.1 pg (27.0-32.0); Mean Corpuscular Volume 82.8 fL (81-99); Monocyte% 6.2 % (0-10); Neutrophil # 5.41 X10^3/uL (2.7-7.7); POSITIVE COUNT NO; POSITIVE DIFFERENTIAL NO; POSITIVE MORPHOLOGY NO; Platelet Count 300 K/mm3 (150-450); RBC Distribution Width SD 38.8 fl (35.1-43.9); Red Blood Count 4.47 M/mm3 (4.2-5.4); White Blood Count 9.7 K/mm3 (4.4-11.0)
--- NOTE | 2018-08-21 23:22 | EKG12_ITS ---
Test Reason : PALPS Blood Pressure : / mmHG Vent. Rate : 084 BPM Atrial Rate : 084 BPM P-R Int : 130 ms QRS Dur : 088 ms QT Int : 398 ms P-R-T Axes : 057 052 051 degrees QTc Int : 470 ms Normal sinus rhythm Normal ECG Confirmed by BÁRBARA WHARTON, ADY ([id number]), clinical editor JOSEFINA RHODES ([id number]) on 08/24/2018 9:14:13 AM Referred By: MITCHELL Confirmed By:ADY GRANGER MD
[2018-08-21 23:25] LABS: Anion Gap 7 (5-15); BUN 9 mg/dL (7-18); BUN/Creat Ratio 12.8 RATIO (10-20); Calcium,Total 8.5 mg/dL (8.5-10.1); Chloride 105 mmol/L (98-107); EST Glomerular Filtration Rate 101 mL/min (>60); Est Glom Filt Rate - Afr Amer 122 mL/min (>60); Estimated Creatinine Clearance 88.72 ml/min; Glucose 91 mg/dL (74-106); Potassium 3.6 mmol/L (3.5-5.1); Sodium Level 140 mmol/L (136-145)
--- NOTE | 2018-08-21 23:52 | ED.DEP ---
ED Disposition - Plan for ED Patient: Disposition: Home or Assisted Living Instructions: ED Palpitations Prescriptions: Ondansetron [Zofran Odt] 4 mg PO Q8H PRN PRN #10 tab PRN Reason: Nausea Referrals: Anant Curran DO [Primary Care Provider] - 1 Week Additional Instructions: Follow-up with primary care doctor. Zofran as needed for nausea.
[2018-08-22 00:03] VITALS: BP 120/72; PULSE 65; RESP 16; O2SAT 100
== END 2018-08-22 00:04 | disposition home or self-care (01) ==
PROVIDERS: Emergency Provider Emergency Medicine; Family Provider Family Medicine; PCP Family Medicine
DX: R00.2 Palpitations (principal); K50.90 Crohn's disease, unspecified, without complications; Z87.442 Personal history of urinary calculi
CPT/HCPCS: 71045; 80048; 84484; 85025; 93005; 96361; 96374; 99284; J7030; J2405

== ENCOUNTER → 2018-08-25 | Outpatient (CLI) | payer MEDICAID, SELFPAY ==
[2018-08-21 21:56] VITALS: BMI 32.9
[2018-09-07 12:59] LABS: Fats, Neutral NORMAL
[2018-09-07 13:00] LABS: Fats, Total INCREASED
== END | disposition home or self-care (01) ==
PROVIDERS: Family Provider Family Medicine; PCP Family Medicine
DX: R12 Heartburn (principal)
CPT/HCPCS: 82274; 82705; 83993; 87177; 87209; 87329; 87506

== ENCOUNTER 2018-09-17 09:27 | Emergency (ER) | payer MEDICAID, SELFPAY ==
[2018-09-17 09:27] VITALS: BP 132/83; PULSE 99; RESP 18; TEMP 36.6; O2SAT 99; BMI 32.8
[2018-09-17 09:44] VITALS: BP 130/82; PULSE 98; RESP 98; TEMP 36.7; O2SAT 99
[2018-09-17] MEDS: 0.9% Normal Saline 1,000 ML 125 ML IV (10:02)
[2018-09-17] MEDS: Ondansetron 4 MG/2 ML Vial IV (10:03)
[2018-09-17] MEDS: morphine 8 MG/ML Syringe IV (10:03)
--- NOTE | 2018-09-17 10:04 | CT_ITS ---
STUDY: CT ABDOMEN AND PELVIS WITHOUT CONTRAST REASON FOR EXAM: Female, 33 years old. RADIATION DOSAGE (If Supplied By Facility): CTDIvol = ( 13.73 ) mGy, DLP = ( 713.65 ) mGycm TECHNIQUE: Transaxial images were obtained from the dome of the diaphragm to the symphysis pubis without oral contrast, and without intravenous contrast. Sagittal and coronal images were reconstructed. Individualized dose optimization techniques were used for this CT. COMPARISON: June 21, 2018. FINDINGS: The liver and spleen are normal in size and attenuation no focal lesion grossly seen bearing in mind no contrast was given. Suprarenal glands are unremarkable so is the pancreas. Both kidneys are normal in size, shape and position there are still noted tiny calcifications involving both kidneys more so on the right side but no evidence of hydronephrosis or any obvious obstructing calculus along the course of the ureters. The urinary bladder is unremarkable. The uterus is within normal limits. There is a small cyst right adnexal region. The small and large bowel are unremarkable. No retroperitoneal lymph nodes or mesenteric lymphadenopathy seen. The small and large bowel are unremarkable. The appendix is intact. CT/Abdomen/Pelvis without Cont IMPRESSION: Multiple tiny renal calculi and changed since June 21, 2018 No obstructive uropathy seen. Electronically Signed: Anaya Collins, at 13:06 EDT Tel , Service support ,
--- NOTE | 2018-09-17 10:10 | ED.VIS.GEN ---
History of Present Illness Chief Complaint: Abd Pain Informant: Patient Onset: Month(s), - - years Past Medical History - Allergies and Home Meds Allergies/Adverse Reactions: Allergies acetaminophen [From Vicodin] Allergy (Severe, Verified 09/17/18 09:31) Itching cyclobenzaprine [From Flexeril] Allergy (Severe, Verified 09/17/18 09:31) Mental status change hydrocodone [From Vicodin] Allergy (Severe, Verified 09/17/18 09:31) Itching latex Allergy (Mild, Verified 09/17/18 09:31) Unknown cephalexin monohydrate [From Keflex] Allergy (Verified 09/17/18 09:31) Anaphylaxis eucalyptus Adverse Reaction (Severe, Verified 09/17/18 09:31) tachycardia, close airway NSAIDS (Non-Steroidal Anti-Inflamma Adverse Reaction (Severe, Verified 09/17/18 09:31) GI upset tizanidine Adverse Reaction (Severe, Verified 09/17/18 09:31) Low HR doxycycline Adverse Reaction (Verified 09/17/18 09:31) Diarrhea Primary Care Physician: Anant Curran DO [Primary Care Provider] - Surgical History: - - History of left fallopian tube removal. Hernia, Smoking Status: Never smoker Review of Systems General: Denies: Chills, Fever, Sweats Eyes: Denies: Visual changes - bilaterally, Diplopia ENT: Denies: Rhinorrhea, Sore throat Cardiovascular: Denies: Chest pain, Palpitations Respiratory: Denies: Dyspnea, Cough, Dyspnea on exertion Gastrointestinal: Reports: Abdominal pain, Diarrhea, Hematochezia, - - She is had chronic intermittent abdominal pain and diarrhea she is been seen extensively by outpatient providers including a GI physicians in the past who have done colonoscopies there is some concern she might have Crohn's disease she has not been diagnosed with that officially, she saw a recent GI team at [facility] in [facility] who felt she did not have Crohn's disease but could not explain why she was continued to have the symptoms. Denies: Nausea, Vomiting, Melena Genitourinary: Denies: Dysuria, Hematuria, Frequency Musculoskeletal: Denies: Back pain, Extremity Pain Skin: Denies: Rash, Wounds Neurological: Denies: Headache, Weakness, Numbness Physical Exam Vital Signs/Narrative: Vital Signs Temp Pulse Resp BP Pulse Ox 06/22/19 09:44 98.1 F 98 98 H 130/82 H 99 09/17/18 09:27 98 F 99 18 132/83 H 99 General: Well nourished, Well developed, No Acute Distress Head: Normocephalic, Atraumatic Eyes: Perrl, EOMI ENT: Moist mucous membranes, No rhinorrhea Neck: Supple, Nontender Cardiovascular: Regular rate, Regular rhythm, No murmurs Respiratory: No distress, CTA bilaterally, Chest nontender Abdomen: Soft, Nondistended, Normal bowel sounds, Tender, - - Patient has nonspecific diffuse discomfort there is no rebound guarding organomegaly she could she is been having this pain for years. Negative for: Guarding Back: Nontender, Normal Inspection Extremities: Nontender, No edema Skin: Normal color, No rash Neurological: Alert, Oriented x3, Cranial nerves II-XII grossly intact, Normal Strength, Normal Sensation Psychological: Normal affect, Normal Mood Diagnostic/Tx/Re-eval - Medical Decision Making She is complaining of diffuse abdominal discomfort intermittent diarrhea with bloody stools, this is an ongoing problem she had for years she indicates she basically saw a GI specialist 2 years ago prior to [facility] colonoscopy and other studies were done and she was told she might have Crohn's disease it was recommended she discuss all the above with her supervisor pressing department and to be considered for Humira therapy. At that time her supervisor pressing department were concerned she had ankylosing spondylitis, basically her physicians turned over she then saw a new team of physicians, the new physician team believe she has lupus causing her musculoskeletal painful disorder, recently started on Plaquenil which is almost resolved her musculoskeletal pain disorder cause intermittent GI upset, and there is been no definitive diagnosis or management for the intermittent chronic abdominal pain with bloody diarrhea. She was seen recently by the GI team hospital nurse practitioner did extensive outpatient work-up stool studies etc. and per the patient no definitive diagnosis was established and she was instructed to follow-up, she presents the emerge from today because of the persistent crampy abdominal pain and intermittent intermittent diarrhea there is been no new changes no antibiotics no fever no cough The patient screening labs and CT abdomen pelvis are generally unremarkable please see those reports, she is had no diarrhea while she is been in the ED per staff I had a long conversation with her she apparently is in a situation where there is some difference of opinion amongst her outpatient providers her GI physicians, her supervisor pressing department her primary care physicians, as the best approach to her current management condition and the exact etiology of all the above. I explained her at this time I am unable to further clarify this difference of opinion I recommended she follow back up with her GI physicians and asked to be seen by an actual GI attending physician follow-up with her primary care physician's her supervisor pressing department and return for change in symptoms and stay in a bland diet until she follows up, she indicates she did stop the Plaquenil, and she is on an antiacid type medicine Home stable Final impression acute recurrent, intermittent diffuse crampy abdominal pain with bloody diarrhea, history of unspecified connective tissue disorder ED Disposition - Plan for ED Patient: Disposition: Home or Assisted Living Instructions: ABDOMINAL PAIN, Unknown Cause, (Female) Referrals: Anant Curran DO [Primary Care Provider] - Additional Instructions: Please follow-up with all of your outpatient providers, please see if your providers can refer you to Crohn's specialist at [facility], please try to clarify with your providers the best approach to your care for all of your conditions
[2018-09-17 10:28] LABS: Absolute Lymphocyte Count 2.62 X10^3/ul (0.83-4.51); Absolute Neutrophil Count 4.3 X10^3/uL (2.0-7.7); Basophil# 0.02 X10^3/uL; Basophil% 0.3 % (0-1); Eosinophil# 0.31 X10^3/uL; Eosinophils% 4.1 % (0-5); Hemoglobin 12.3 g/dl (12.0-15.0); Lymphocyte # 2.62 X10^3/ul (4.0); Lymphocyte % 34.6 % (19-41); Mean Corp Hgb Conc 32.4 g/gl (32-36); Mean Corpuscular Volume 83.3 fL (81-99); Mean Platelet Vol. 8.9 fl (6.2-12.0); Monocyte# 0.36 X10^3/uL; Monocyte% 4.7 % (0-10); Neutrophil # 4.26 X10^3/uL (2.7-7.7); Neutrophil % 56.2 % (47-70); Platelet Count 258 K/mm3 (150-450); RBC Distribution Width CV 13.1 % (11.6-14.6); RBC Distribution Width SD 39.5 fl (35.1-43.9); Red Blood Count 4.56 M/mm3 (4.2-5.4); White Blood Count 7.6 K/mm3 (4.4-11.0)
[2018-09-17 10:31] LABS: POSITIVE COUNT NO; POSITIVE DIFFERENTIAL NO; POSITIVE MORPHOLOGY NO
[2018-09-17 10:42] LABS: Internal QC Validated? YES +Cl - CLEAR BKGD; Pregnancy, Serum, hCG Quali. NEGATIVE Negative
[2018-09-17 10:49] LABS: AST(SGOT) 23 U/L (15-37); Alanine Aminotransfer ALT/SGPT 34 U/L (13-56); Albumin, Serum 3.9 g/dL (3.2-5.0); Alkaline Phosphatase 88 U/L (45-117); Anion Gap 10 (5-15); BUN 9 mg/dL (7-18); BUN/Creat Ratio 10.9 RATIO (10-20); Bilirubin, Direct 0.08 mg/dL (0.00-0.30); Calcium,Total 9.2 mg/dL (8.5-10.1); Chloride 105 mmol/L (98-107); Creatinine, Serum 0.82 mg/dL (0.55-1.02); EST Glomerular Filtration Rate 84 mL/min (>60); Est Glom Filt Rate - Afr Amer 102 mL/min (>60); Estimated Creatinine Clearance 79.21 ml/min; Glucose 88 mg/dL (74-106); Lipase 178 U/L (73-393); Potassium 3.9 mmol/L (3.5-5.1); Protein, Total 7.9 g/dL (6.4-8.2); Sodium Level 141 mmol/L (136-145)
[2018-09-17 11:32] LABS: Bacteria 0 SEEN /hpf (None Seen); White Blood Cells 0 SEEN /hpf (0-5)
[2018-09-17 11:37] LABS: Color, Urine Yellow (Yellow); Glucose, Dipstick Normal (Normal); Ketone-Dipstick Negative (Negative); Leukocyte Esterase-Dipstick Negative /ul (Negative); Nitrite-Dipstick Negative (Negative); Occult Blood-Urine 10 /ul (Negative); Protein-Dipstick Negative (Negative); Urine Bilirubin Dipstick Negative (Negative); Urine Clarity Sl. Cloudy (Clear); Urine Urobilinogen Normal (Normal); Urine pH 6.5 (5.0 - 8.0)
[2018-09-17 11:43] LABS: Mucous, Urine RARE /hpf (<or=2+); Red Blood Cells-Urine 0-5 SEEN /hpf (0-5); Squamous Epithelial Cells - UA 0-5 SEEN /hpf (5-10)
[2018-09-17 13:49] VITALS: BP 125/86; PULSE 81; RESP 16
== END 2018-09-17 13:51 | disposition home or self-care (01) ==
LOC: ED 10:03
PROVIDERS: Emergency Provider Emergency Medicine; Family Provider Family Medicine; PCP Family Medicine
DX: R10.84 Generalized abdominal pain (principal); G89.29 Other chronic pain; K92.1 Melena
CPT/HCPCS: 74176; 80048; 80076; 81001; 83690; 84703; 85025; 96361; 96374; 96375; 99283; J7030; A4216; J2405

== ENCOUNTER → 2018-09-22 | Outpatient (CLI) | payer MEDICAID, SELFPAY ==
[2018-09-17 09:27] VITALS: BMI 32.8
[2018-09-22 11:33] LABS: Bacteria 0 SEEN /hpf (None Seen)
[2018-09-22 15:29] LABS: Color, Urine Yellow (Yellow); Glucose, Dipstick Normal (Normal); Ketone-Dipstick Negative (Negative); Leukocyte Esterase-Dipstick Negative /ul (Negative); Nitrite-Dipstick Negative (Negative); Occult Blood-Urine 25 /ul (Negative); Protein-Dipstick Negative (Negative); Specific Gravity, Urine 1.015 (1.002-1.030); Urine Bilirubin Dipstick Negative (Negative); Urine Clarity Sl. Cloudy (Clear); Urine Urobilinogen Normal (Normal)
[2018-09-22 15:35] LABS: Mucous, Urine 1+ /hpf (<or=2+); Red Blood Cells-Urine 0-5 SEEN /hpf (0-5); Squamous Epithelial Cells - UA 0-5 SEEN /hpf (5-10)
== END | disposition home or self-care (01) ==
LOC: BFHLAB 11:29
PROVIDERS: Family Provider Family Medicine; PCP Family Medicine; Visit Provider Family Medicine
DX: R31.9 Hematuria, unspecified (principal); R10.2 Pelvic and perineal pain
CPT/HCPCS: 81001; 87086; 87088

== ENCOUNTER 2018-10-18 19:32 | Emergency (ER) | payer MEDICAID, SELFPAY ==
[2018-10-18 19:33] VITALS: BP 158/90; PULSE 81; RESP 16; TEMP 36.5; O2SAT 100; BMI 33.1
[2018-10-18 20:23] LABS: Bacteria 0 SEEN /hpf (None Seen); Mucous, Urine 0 SEEN /hpf (<or=2+)
[2018-10-18 20:29] LABS: Absolute Neutrophil Count 3.8 X10^3/uL (2.0-7.7); Basophil# 0.02 X10^3/uL; Basophil% 0.3 % (0-1); Eosinophil# 0.15 X10^3/uL; Eosinophils% 1.9 % (0-5); Hemoglobin 12.9 g/dL (12.0-15.0); Lymphocyte % 43.8 % (19-41); Mean Corp Hgb Conc 32.3 g/dL (32-36); Mean Corpuscular Hgb 27.3 pg (27.0-32.0); Mean Corpuscular Volume 84.7 fL (81-99); Monocyte# 0.55 X10^3/uL; Monocyte% 6.9 % (0-10); NRBC Flagged by Analyzer 0 % (0-5); Neutrophil # 3.75 X10^3/uL (2.7-7.7); Neutrophil % 46.7 % (47-70); Platelet Count 282 K/mm3 (150-450); RBC Distribution Width CV 13.1 % (11.6-14.6); RBC Distribution Width SD 40.6 fl (35.1-43.9); Red Blood Count 4.72 M/mm3 (4.2-5.4)
[2018-10-18 20:33] LABS: Color, Urine Yellow (Yellow); Glucose, Dipstick Normal (Normal); Ketone-Dipstick Negative (Negative); Leukocyte Esterase-Dipstick Negative /ul (Negative); Nitrite-Dipstick Negative (Negative); Occult Blood-Urine 10 /ul (Negative); Protein-Dipstick Negative (Negative); Urine Bilirubin Dipstick Negative (Negative); Urine Clarity Clear (Clear); Urine Urobilinogen Normal (Normal)
[2018-10-18 20:36] LABS: Internal QC Validated? YES +Cl - CLEAR BKGD; Pregnancy, Urine Negative Negative
[2018-10-18 20:39] LABS: Red Blood Cells-Urine 0-5 SEEN /hpf (0-5); Squamous Epithelial Cells - UA 0-5 SEEN /hpf (5-10); White Blood Cells 0-5 SEEN /hpf (0-5)
[2018-10-18 20:48] LABS: Anion Gap 6 (5-15); BUN 10 mg/dL (7-18); BUN/Creat Ratio 12.9 RATIO (10-20); Calcium,Total 8.9 mg/dL (8.5-10.1); Chloride 106 mmol/L (98-107); Creatinine, Serum 0.77 mg/dL (0.55-1.02); EST Glomerular Filtration Rate 90 mL/min (>60); Est Glom Filt Rate - Afr Amer 109 mL/min (>60); Estimated Creatinine Clearance 84.36 ml/min; Glucose 88 mg/dL (74-106); Potassium 3.5 mmol/L (3.5-5.1); Sodium Level 139 mmol/L (136-145)
--- NOTE | 2018-10-18 21:38 | ED.VISSUMM ---
- ER Visit Summary Date of Service: 10/18/18 Chief Complaint: Rectal mass History of Present Illness: The patient is a 33 F with a rectal mass. She has a history of hemorrhoids. She has had ongoing diarrhea for months. She saw a GI doctor about this. According to her, he told her to stay hydrated, and she has a follow-up appointment with him. Over the last 2 days, she has had increasing rectal pain. She had a bowel movement and noted some tissue protruding from her anus. She reduced this. She has a history of thrombosed hemorrhoids. She also has a history of connective tissue disease, Crohn's, PCOS, endometriosis, interstitial cystitis. She was recently examined for interstitial cystitis, and she believes she is having a bladder spasm as well. Patient has been taking hydrocortisone topical as well as lidocaine with no improvement. She has been trying warm soaks. No improvement. Patient was seen about a month ago for abdominal pain and had an unremarkable CT. She follows up with a GI doctor at the [facility], but does not have a local GI doctor or surgeon. Physical Examination: Afebrile and vital signs are unremarkable. Skin appears normal. Abdomen soft. Rectal exam was chaperoned by RONNY Thomas. She has an external skin tag which is soft and nontender. I am able to palpate what I believe is an internal hemorrhoid. No evidence of prolapse, fissure, abscess, fistula, or bleeding. The remainder of her exam was unremarkable. Test Results: CBC, BMP, hCG, urinalysis unremarkable. Emergency Department Course and Treatment: Patient presents with proctalgia. History of hemorrhoids and skin tag. Ongoing issues with diarrhea. Her vital signs were reassuring. Exam revealed hemorrhoid and some tenderness but no other obvious explanation of her symptoms. Her laboratory studies were reassuring. She had a CT about a month ago, and I did not believe that the risks outweighed the benefits of repeating the CT. Patient was treated with a B&O suppository but had minimal improvement. She also received oxycodone. I spoke with Dr. Burt. I believe the patient will need endoscopy. She agreed. She is available to see the patient as an outpatient. She advised stool studies. We will attempt to collect a sample from the patient. Patient will continue her outpatient regimen. We will add a short course of pain medicine. Return for fever, bleeding, worsening symptoms, or any other new concerns. Return if unable to follow-up. She should also follow-up with her GI doctor as planned. Treatment Plan: As above Disposition: Discharge Impression: 1. Proctalgia 2. Diarrhea This note was generated with [employer] dictation software. It may contain incorrect words, spelling, and punctuation that were not noted in review of the chart prior to signing ED Disposition - Plan for ED Patient: Referrals: Anant Curran DO [Primary Care Provider] -
--- NOTE | 2018-10-18 21:44 | ED.DEP ---
ED Disposition - Plan for ED Patient: Instructions: DIARRHEA, Unk Cause (Adult) Report Pendg Prescriptions: Oxycodone [Oxyir] 5 mg PO Q6H PRN PRN 3 Days #12 tab PRN Reason: Pain Prescription Printed Referrals: Ana Lilia Burt MD [STAFF PHYSICIAN] -
[2018-10-18] MEDS: oxyCODONE 5 MG Tablet PO (22:04)
[2018-10-18 22:06] VITALS: BP 115/70; PULSE 70; RESP 16; O2SAT 100
== END 2018-10-18 22:07 | disposition home or self-care (01) ==
LOC: ED 20:14
PROVIDERS: Emergency Provider Emergency Medicine; Family Provider Family Medicine; PCP Family Medicine
DX: K62.89 Other specified diseases of anus and rectum (principal); R19.7 Diarrhea, unspecified
CPT/HCPCS: 80048; 81001; 81025; 85025; 99283; A4216

== ENCOUNTER → 2018-10-18 | Outpatient (CLI) | payer MEDICAID, SELFPAY | END | disposition home or self-care (01) | LOC: LAB 13:25 | PROVIDERS: Family Provider Family Medicine; PCP Family Medicine; Referring Provider Family Medicine; Visit Provider Family Medicine | DX: R53.83 Other fatigue (principal) ==

== ENCOUNTER → 2018-10-26 | Outpatient (CLI) | payer MEDICAID, SELFPAY ==
[2018-10-18 19:33] VITALS: BMI 33.1
== END | disposition home or self-care (01) ==
PROVIDERS: Family Provider Family Medicine; PCP Family Medicine; Referring Provider Emergency Medicine; Visit Provider Emergency Medicine
DX: R53.83 Other fatigue (principal); R19.7 Diarrhea, unspecified
CPT/HCPCS: 36415; 82274; 82533; 87506

== ENCOUNTER → 2018-12-15 | Outpatient (CLI) | payer MEDICAID, SELFPAY ==
[2018-10-31 14:12] VITALS: BMI 33.1
== END | disposition home or self-care (01) ==
PROVIDERS: Family Provider Family Medicine; PCP Family Medicine; Visit Provider Family Medicine
DX: N39.0 Urinary tract infection, site not specified (principal)
CPT/HCPCS: 87086; 87088

== ENCOUNTER → 2018-12-23 | Outpatient (CLI) | payer MEDICAID, SELFPAY ==
[2018-10-31 14:12] VITALS: BMI 33.1
--- NOTE | 2018-12-23 07:58 | US_ITS ---
STUDY: ULTRASOUND OF THE FEMALE PELVIS - COMPLETE REASON FOR EXAM: Female, 33 years old. Pelvic pain and fullness LMP: 12/10/2018 TECHNIQUE: Transabdominal and Transvaginal TECHNICAL QUALITY: Adequate. COMPARISON: 12/20/2017 FINDINGS: The uterus is anteverted and is in a midline position. The uterus measures 10.6 x 4.8 x 4.4 cm. Normal uterine cervix. The endometrium measures 0.8 mm in thickness, and is heterogeneous (striated). There is no demonstrated endometrial mass. There is no demonstrated myometrial mass. I.U.D. - The patient does not have an I.U.D. The right ovary is visualized. The right ovary measures 5.1 x 3.6 x 2.4 cm. There is a 1.5 cm cyst.. There is normal arterial and normal venous vascularity. The left ovary is nonvisualized. There is no fluid in the cul-de-sac. The bladder is sonographically normal US/Transvaginal Non- IMPRESSION: Simple right ovarian cyst, no suspicious sonographic findings Electronically Signed: Chivo Faust MD at 15:56 EDT , Service support ,
--- NOTE | 2018-12-23 07:58 | US_ITS ---
STUDY: ULTRASOUND OF THE FEMALE PELVIS - COMPLETE REASON FOR EXAM: Female, 33 years old. Pelvic pain and fullness LMP: 12/10/2018 TECHNIQUE: Transabdominal and Transvaginal TECHNICAL QUALITY: Adequate. COMPARISON: 12/20/2017 FINDINGS: The uterus is anteverted and is in a midline position. The uterus measures 10.6 x 4.8 x 4.4 cm. Normal uterine cervix. The endometrium measures 0.8 mm in thickness, and is heterogeneous (striated). There is no demonstrated endometrial mass. There is no demonstrated myometrial mass. I.U.D. - The patient does not have an I.U.D. The right ovary is visualized. The right ovary measures 5.1 x 3.6 x 2.4 cm. There is a 1.5 cm cyst.. There is normal arterial and normal venous vascularity. The left ovary is nonvisualized. There is no fluid in the cul-de-sac. The bladder is sonographically normal US/Pelvic (Non ) IMPRESSION: Simple right ovarian cyst, no suspicious sonographic findings Electronically Signed: Chivo Faust MD at 15:56 EDT , Service support ,
== END | disposition home or self-care (01) ==
LOC: OPUS 07:56
PROVIDERS: Family Provider Family Medicine; PCP Family Medicine; Referring Provider Family Medicine; Visit Provider Family Medicine
DX: N83.8 Other noninflammatory disorders of ovary, fallopian tube and broad ligament (principal)
CPT/HCPCS: 76830; 76856; 93976

== ENCOUNTER → 2018-12-26 | Outpatient (CLI) | payer MEDICAID, SELFPAY ==
[2018-10-31 14:12] VITALS: BMI 33.1
[2019-01-04 16:07] LABS: Ca Oxalate, Monohydrate 92 % (.); Size 4x2x2 mm (.)
== END | disposition home or self-care (01) ==
LOC: LAB.FUTURE 15:15 → LABSPEC 15:18
PROVIDERS: Family Provider Family Medicine; PCP Family Medicine; Referring Provider Family Medicine; Visit Provider Family Medicine
DX: N20.9 Urinary calculus, unspecified (principal)
CPT/HCPCS: 82360

== ENCOUNTER → 2019-01-03 | Outpatient (CLI) | payer MEDICAID, SELFPAY ==
[2018-10-31 14:12] VITALS: BMI 33.1
[2019-01-03 10:15] LABS: Hemoglobin A1c 5.5 % (4.2-6.3)
[2019-01-03 10:32] LABS: Cholesterol 185 mg/dL (200); High Density Lipoprotein 41 mg/dL; Triglycerides 211 mg/dL; Very Low Density Lipoprotein 42 mg/dL (5-40)
[2019-01-03 14:21] LABS: Color, Urine Yellow (Yellow); Glucose, Dipstick Normal (Normal); Ketone-Dipstick Negative (Negative); Leukocyte Esterase-Dipstick Negative /ul (Negative); Nitrite-Dipstick Negative (Negative); Occult Blood-Urine 10 /ul (Negative); Protein-Dipstick Negative (Negative); Specific Gravity, Urine 1.015 (1.002-1.030); Urine Bilirubin Dipstick Negative (Negative); Urine Clarity Sl. Cloudy (Clear); Urine Urobilinogen Normal (Normal)
[2019-01-03 14:27] LABS: Bacteria 1+ /hpf (None Seen); Mucous, Urine 1+ /hpf (<or=2+); Red Blood Cells-Urine 0-5 SEEN /hpf (0-5); Squamous Epithelial Cells - UA 0-5 SEEN /hpf (5-10); White Blood Cells 0-5 SEEN /hpf (0-5)
== END | disposition home or self-care (01) ==
PROVIDERS: Family Provider Family Medicine; PCP Family Medicine; Referring Provider Family Medicine; Visit Provider Family Medicine
DX: Z00.00 Encounter for general adult medical examination without abnormal findings (principal); R73.9 Hyperglycemia, unspecified; R30.0 Dysuria
CPT/HCPCS: 36415; 80061; 81001; 83036; 87086; 87088

== ENCOUNTER → 2019-01-31 | Outpatient (CLI) | payer MEDICAID, SELFPAY ==
[2019-01-03 11:30] VITALS: BMI 33.1
[2019-01-31 15:20] LABS: Absolute Lymphocyte Count 2.87 X10^3/uL (0.83-4.51); Absolute Neutrophil Count 5.7 X10^3/uL (2.0-7.7); Basophil# 0.03 X10^3/uL; Basophil% 0.3 % (0-1); Eosinophil# 0.15 X10^3/uL; Eosinophils% 1.6 % (0-5); Hematocrit 38.1 % (37-47); Hemoglobin 11.9 g/dL (12.0-15.0); Lymphocyte # 2.87 X10^3/ul (4.0); Lymphocyte % 30.9 % (19-41); Mean Corp Hgb Conc 31.2 g/dL (32-36); Mean Corpuscular Hgb 26.7 pg (27.0-32.0); Mean Corpuscular Volume 85.4 fL (81-99); Mean Platelet Vol. 9.3 fl (6.2-12.0); Monocyte# 0.58 X10^3/uL; Monocyte% 6.2 % (0-10); NRBC Flagged by Analyzer 0 % (0-5); Neutrophil # 5.65 X10^3/uL (2.7-7.7); Neutrophil % 60.8 % (47-70); Platelet Count 313 K/mm3 (150-450); RBC Distribution Width CV 13.2 % (11.6-14.6); RBC Distribution Width SD 41.3 fl (35.1-43.9); Red Blood Count 4.46 M/mm3 (4.2-5.4); White Blood Count 9.3 K/mm3 (4.4-11.0)
[2019-01-31 15:28] LABS: ALB/GLOB Ratio 0.8 RATIO (0.9-2.4); AST(SGOT) 19 U/L (15-37); Alanine Aminotransfer ALT/SGPT 27 U/L (13-56); Albumin, Serum 3.6 g/dL (3.2-5.0); Alkaline Phosphatase 84 U/L (45-117); Amylase 72 U/L (25-115); Anion Gap 9 (5-15); BUN 9 mg/dL (7-18); BUN/Creat Ratio 11.5 RATIO (10-20); Calcium,Total 8.9 mg/dL (8.5-10.1); Chloride 104 mmol/L (98-107); Creatinine, Serum 0.78 mg/dL (0.55-1.02); EST Glomerular Filtration Rate 88 mL/min (>60); Est Glom Filt Rate - Afr Amer 107 mL/min (>60); Globulin 4.3 g/dL (2.2-4.2); Glucose 90 mg/dL (74-106); Lipase 168 U/L (73-393); Potassium 3.5 mmol/L (3.5-5.1); Protein, Total 7.9 g/dL (6.4-8.2); Sodium Level 140 mmol/L (136-145)
[2019-01-31 15:43] LABS: Erythrocyte Sedimentation Rate 13 mm/hr (0-20)
== END | disposition home or self-care (01) ==
LOC: BFHLAB 13:21
PROVIDERS: Family Provider Family Medicine; PCP Family Medicine; Visit Provider Family Medicine
DX: R10.9 Unspecified abdominal pain (principal); R19.7 Diarrhea, unspecified
CPT/HCPCS: 36415; 80053; 82150; 83690; 85025; 85652; 86140

== ENCOUNTER 2019-02-25 17:50 | Emergency (ER) | payer MEDICAID, SELFPAY ==
[2019-01-03 11:30] VITALS: BMI 33.1
[2019-02-25 17:53] VITALS: BP 139/80; PULSE 91; RESP 16; TEMP 37; O2SAT 100; BMI 33.7
--- NOTE | 2019-02-25 18:38 | CT_ITS ---
STUDY: CT ABDOMEN AND PELVIS WITH CONTRAST REASON FOR EXAM: Female, 33 years old. Recent surgery, pneumaturia RADIATION DOSAGE (If Supplied By Facility): CTDIvol = ( 17.16 ) mGy, DLP = ( 1066.77 ) mGycm TECHNIQUE: CT images were obtained from the dome of the diaphragm to the symphysis pubis without oral contrast. IV/Oral Isovue 370 100 was administered. Sagittal and coronal images were reconstructed. Individualized dose optimization techniques were used for this CT. COMPARISON: 17 September 2018, 21 June 2018 FINDINGS: The visualized lung bases are unremarkable. The visualized portions of the heart are within normal limits. Normal liver. Normal gallbladder and extrahepatic biliary system. Normal spleen. Normal pancreas. Normal bilateral adrenal glands. Normal right kidney. Normal left kidney. There are bilateral punctate, 1 mm, calyceal renal calculi. There is no hydronephrosis or urinary calculi. Normal visualized stomach. Normal small intestine. Normal colon. The appendix is visualized and appears normal. Normal abdominal aorta. Normal inferior vena cava. Normal retroperitoneum. Normal urinary bladder. Normal abdominal wall. Normal osseous structures. CT/Abdomen/Pelvis WITH Contrast IMPRESSION: 1. Unremarkable bladder and perivesical space. 2. No acute intra-abdominal finding. Electronically Signed: Alfonso Lindquist, at 20:52 EST Tel , Service support ,
[2019-02-25 18:56] LABS: Mucous, Urine 0 SEEN /hpf (<or=2+); Red Blood Cells-Urine 0 SEEN /hpf (0-5); White Blood Cells 0 SEEN /hpf (0-5)
[2019-02-25] MEDS: 0.9% Normal Saline 1,000 ML 125 ML IV (18:59)
[2019-02-25 19:01] LABS: Color, Urine Straw (Yellow); Glucose, Dipstick Normal (Normal); Ketone-Dipstick Negative (Negative); Leukocyte Esterase-Dipstick Negative /ul (Negative); Nitrite-Dipstick Negative (Negative); Occult Blood-Urine Negative /ul (Negative); Protein-Dipstick Negative (Negative); Specific Gravity, Urine 1.005 (1.002-1.030); Urine Bilirubin Dipstick Negative (Negative); Urine Clarity Clear (Clear); Urine Urobilinogen Normal (Normal)
[2019-02-25 19:01] LABS: Absolute Lymphocyte Count 3.19 X10^3/uL (0.83-4.51); Absolute Neutrophil Count 5.6 X10^3/uL (2.0-7.7); Basophil# 0.04 X10^3/uL; Basophil% 0.4 % (0-1); Eosinophil# 0.14 X10^3/uL; Eosinophils% 1.5 % (0-5); Hematocrit 37.3 % (37-47); Hemoglobin 11.9 g/dL (12.0-15.0); Lymphocyte # 3.19 X10^3/ul (4.0); Lymphocyte % 33.4 % (19-41); Mean Corp Hgb Conc 31.9 g/dL (32-36); Mean Corpuscular Hgb 27.3 pg (27.0-32.0); Mean Corpuscular Volume 85.6 fL (81-99); Monocyte# 0.55 X10^3/uL; Monocyte% 5.8 % (0-10); NRBC Flagged by Analyzer 0 % (0-5); Neutrophil # 5.61 X10^3/uL (2.7-7.7); Neutrophil % 58.6 % (47-70); Platelet Count 272 K/mm3 (150-450); RBC Distribution Width CV 12.7 % (11.6-14.6); RBC Distribution Width SD 39.3 fl (35.1-43.9); Red Blood Count 4.36 M/mm3 (4.2-5.4); White Blood Count 9.6 K/mm3 (4.4-11.0)
[2019-02-25] MEDS: Ondansetron 4 MG/2 ML Vial IV (19:01)
[2019-02-25 19:03] LABS: Internal QC Validated? YES +Cl - CLEAR BKGD
[2019-02-25 19:09] LABS: Bacteria RARE /hpf (None Seen); Squamous Epithelial Cells - UA 0-5 SEEN /hpf (5-10)
[2019-02-25 19:12] LABS: Pregnancy, Serum, hCG Quali. NEGATIVE Negative
[2019-02-25 19:17] LABS: ALB/GLOB Ratio 0.9 RATIO (0.9-2.4); AST(SGOT) 20 U/L (15-37); Alanine Aminotransfer ALT/SGPT 27 U/L (13-56); Albumin, Serum 3.7 g/dL (3.2-5.0); Alkaline Phosphatase 82 U/L (45-117); Anion Gap 8 (5-15); BUN 13 mg/dL (7-18); BUN/Creat Ratio 13.4 RATIO (10-20); Calcium,Total 9.1 mg/dL (8.5-10.1); Chloride 104 mmol/L (98-107); Creatinine, Serum 0.97 mg/dL (0.55-1.02); EST Glomerular Filtration Rate 69 mL/min (>60); Est Glom Filt Rate - Afr Amer 84 mL/min (>60); Estimated Creatinine Clearance 64.02 ml/min; Glucose 94 mg/dL (74-106); Potassium 3.8 mmol/L (3.5-5.1); Protein, Total 7.7 g/dL (6.4-8.2); Sodium Level 139 mmol/L (136-145)
[2019-02-25] MEDS: Morphine 4 MG/ML Syringe IV (19:53)
[2019-02-25] MEDS: 0.9% Normal Saline 1,000 ML 999 ML IV (20:56)
--- NOTE | 2019-02-25 20:57 | ED.DCSUM_ITS ---
- ER Visit Summary Date of Service: 02/25/19 Chief Complaint: [Abdominal pain] History of Present Illness: The patient is a 33 F [resents to the emergency department complaint of abdominal/flank pain that is bilateral. Patient states that she has had symptoms for weeks. Patient states that a week and a half ago she had rectal surgery for some sort of a ulceration to the rectum. Surgery was done at [facility] by 1 of the colorectal surgeons . Patient was seen by her primary care physician after her surgery because she was running low-grade fevers and had a urinalysis that showed questionable signs of infection and was treated with Cipro for 3 days. Patient states that at times she is passing gas from her urine and it was some concern for a fistula bladder. Patient is scheduled to have a CAT scan of her abdomen and pelvis performed next week. Patient feels like she needs to frequently urinate but only gets small amount of urine out. Patient has been seen by local urology in the past Dr. Patel. He has had prior as well as hernia repairs. Physical Examination: [HEENT-PERRLA, EOMI. Cranial nerves II through XII grossly intact. TMs clear. Mucous membranes moist. No adenopathy. Cardiovascular-regular rate and rhythm without murmur or ectopy Lungs-clear to auscultation, chest wall stable without crepitus or subcu emphysema Abdomen-normoactive bowel sounds, soft. Patient has mild diffuse weakness and palpation. Patient has mild tenderness over the lower abdomen diffusely. She has CVA tenderness bilaterally. There is no rebound, rigidity, or perineal signs. Extremities-intact ?4, normal range of motion, normal pulses, atraumatic] Test Results: [CBC with differential obtained was normal with white blood cell count of 9.6, hemoglobin was 12, hematocrit 37, platelet 272. Chemistries unremarkable. LFTs were normal. Urinalysis normal. hCG was negative.] CT scan of the abdomen pelvis with IV and p.o. contrast was essentially unremarkable. Emergency Department Course and Treatment: [Patient was medicated with morphine and Zofran] Treatment Plan: [Advised to follow-up with urology and her colorectal surgeon within next 3 to 5 days.] Disposition: [Discharged home in stable condition] Impression: [Abdominal pain-etiology uncertain] This note was generated with [employer] dictation software. It may contain incorrect words, spelling, and punctuation that were not noted in review of the chart prior to signing ED Disposition - Plan for ED Patient: Referrals: Anant Curran DO [Primary Care Provider] -
--- NOTE | 2019-02-25 21:03 | ED.DEP ---
ED Disposition - Plan for ED Patient: Instructions: FLANK PAIN, Uncertain Cause Prescriptions: Ondansetron [Zofran Odt] 4 mg PO Q8H PRN PRN #10 tab PRN Reason: Nausea Prescription Printed Referrals: Anant Curran DO [Primary Care Provider] - Agnieszka Patel MD [STAFF PHYSICIAN] - 5-7 Days Additional Instructions: see your surgeon
[2019-02-25 21:57] VITALS: BP 122/73; PULSE 66; RESP 16; O2SAT 99
== END 2019-02-25 21:58 | disposition home or self-care (01) ==
LOC: ED 18:40
PROVIDERS: Emergency Provider Emergency Medicine; Family Provider Family Medicine; PCP Family Medicine
DX: R10.30 Lower abdominal pain, unspecified (principal)
CPT/HCPCS: 74177; 80053; 81001; 84703; 85025; 96361; 96374; 96375; 99283; J7030; Q9967; A4216; J2405

== ENCOUNTER 2019-04-09 12:26 | Emergency (ER) | payer MEDICAID, SELFPAY ==
[2019-04-09 12:26] VITALS: BP 147/77; PULSE 97; RESP 20; TEMP 36.7; O2SAT 100; BMI 33.7
--- NOTE | 2019-04-09 12:38 | CT_ITS ---
STUDY: CTA CHEST REASON FOR EXAM: Female, 33 years old with chest pain. RADIATION DOSAGE (If Supplied By Facility): CTDIvol = ( 10.76 ) mGy, DLP = ( 515.13 ) mGycm TECHNIQUE: The examination was performed with the intravenous administration of 100 ml of Isovue 370. Post-processing of the angiographic images was performed, with multiplanar reformation and 3D reconstruction. Individualized dose optimization techniques were used for this CT. COMPARISON: Prior comparable comparison studies are not available for review at this time. FINDINGS: Cardiac monitoring leads are present. Normal enhancement of the main pulmonary artery and right and left pulmonary arteries. Normal enhancement of the bilateral peripheral pulmonary arteries. There is no demonstrated pulmonary embolism. Normal thoracic aorta and visualized great vessels. There is no demonstrated aortic dissection. Normal heart and pericardium. Normal mediastinum. Normal hilar regions. Normal visualized trachea and bronchi. The lungs are well expanded. Normal pulmonary parenchyma. Normal pleura. Normal chest wall structures. Normal osseous structures. Normal visualized upper abdomen. CT/CTA Chest W/WO Contrast IMPRESSION: No CTA demonstrated pulmonary embolism or arterial dissection. Electronically Signed: Rossy Williamson MD at 14:17 EST , Service support ,
--- NOTE | 2019-04-09 12:38 | EKG12_ITS ---
Test Reason : CP Blood Pressure : / mmHG Vent. Rate : 086 BPM Atrial Rate : 086 BPM P-R Int : 122 ms QRS Dur : 088 ms QT Int : 368 ms P-R-T Axes : 061 052 051 degrees QTc Int : 440 ms Normal sinus rhythm Normal ECG Confirmed by KYLE WHARTON, KATIE ([id number]), publishing editor ROGELIO RANGEL ([id number]) on 04/11/2019 10:04:48 AM Referred By: MARIELA Confirmed By:KATIE WRIGHT MD
--- NOTE | 2019-04-09 12:51 | ED.DCSUM_ITS ---
- ER Visit Summary Date of Service: 04/09/19 Chief Complaint: [Chest pain] History of Present Illness: The patient is a 33 F [resents to the emergency department complaint of chest pressure x4 days. Patient states that symptoms are intermittent. She has had similar symptoms multiple times in the past which is never lasted this long. Patient describes of an odd sensation of feeling a lot of discomfort in her chest when she lifts her arms up. Patient feels like her neck muscles at times are not strong enough to hold her head up and she has generalized weakness. She denies recent travel or surgery. She denies history of PE or DVT. Patient states that she was worked up by photographic double in December last year with she thinks an echocardiogram and a stress test because she had a lot of palpitations and pots type symptoms. There is family history of heart disease. Denies any fever or recent illness.] Physical Examination: [HEENT-PERRLA, EOMI. Cranial nerves II through XII grossly intact. TMs clear. Mucous membranes moist. No adenopathy. Cardiovascular-regular rate and rhythm without murmur or ectopy Lungs-clear to auscultation, chest wall stable without crepitus or subcu emphysema Abdomen-normoactive bowel sounds, soft, nontender, no rebound or rigidity, no pe ritoneal signs. Extremities-intact ?4, normal range of motion, normal pulses, atraumatic] Test Results: [EKG obtained on arrival showed a sinus rhythm with a ventricular rate of 86 bpm with no acute ST segment changes.] CBC with it was normal. Chemistries normal. hCG was negative. Troponin was less than 0.015. CTA of the chest was negative for PE or dissection and essentially was normal. Emergency Department Course and Treatment: [] Treatment Plan: [Patient advised to follow-up with her photographic double within next 3 to 5 days. Etiology of her symptomatology is unclear. I do not think she is having acute coronary syndrome. It is unclear if patient having symptoms related to her possible diagnosis of pots.] Disposition: [Discharged home in stable condition] Impression: [Chest pain-etiology uncertain] This note was generated with [employer] software. It may contain incorrect words, spelling, and punctuation that were not noted in review of the chart prior to signing ED Disposition - Plan for ED Patient: Referrals: Anant Curran DO [Primary Care Provider] -
[2019-04-09] MEDS: 0.9% Normal Saline 1,000 ML 150 ML IV (13:00)
[2019-04-09 13:15] LABS: Absolute Lymphocyte Count 2.75 X10^3/uL (0.83-4.51); Absolute Neutrophil Count 6.1 X10^3/uL (2.0-7.7); Basophil# 0.04 X10^3/uL; Basophil% 0.4 % (0-1); Eosinophil# 0.15 X10^3/uL; Eosinophils% 1.6 % (0-5); Hemoglobin 12.7 g/dL (12.0-15.0); Lymphocyte # 2.75 X10^3/ul (4.0); Lymphocyte % 28.7 % (19-41); Mean Corp Hgb Conc 31.8 g/dL (32-36); Mean Corpuscular Volume 84.9 fL (81-99); Mean Platelet Vol. 8.9 fl (6.2-12.0); Monocyte# 0.53 X10^3/uL; Monocyte% 5.5 % (0-10); NRBC Flagged by Analyzer 0 % (0-5); Neutrophil # 6.08 X10^3/uL (2.7-7.7); Neutrophil % 63.5 % (47-70); Platelet Count 303 K/mm3 (150-450); RBC Distribution Width CV 12.7 % (11.6-14.6); RBC Distribution Width SD 39.3 fl (35.1-43.9); Red Blood Count 4.71 M/mm3 (4.2-5.4); White Blood Count 9.6 K/mm3 (4.4-11.0)
[2019-04-09 13:26] LABS: Internal QC Validated? YES +Cl - CLEAR BKGD; Pregnancy, Serum, hCG Quali. NEGATIVE Negative
[2019-04-09 13:28] LABS: Anion Gap 6 (5-15); BUN 11 mg/dL (7-18); BUN/Creat Ratio 13.5 RATIO (10-20); Calcium,Total 9.1 mg/dL (8.5-10.1); Chloride 107 mmol/L (98-107); Creatinine, Serum 0.81 mg/dL (0.55-1.02); EST Glomerular Filtration Rate 85 mL/min (>60); Est Glom Filt Rate - Afr Amer 103 mL/min (>60); Estimated Creatinine Clearance 76.67 ml/min; Glucose 115 mg/dL (74-106); Potassium 3.7 mmol/L (3.5-5.1); Sodium Level 140 mmol/L (136-145)
--- NOTE | 2019-04-09 14:27 | ED.DEP ---
ED Disposition - Plan for ED Patient: Instructions: CHEST PAIN, Uncertain Cause, WEAKNESS, Unk Cause Referrals: Emmanuel Wong MD [STAFF PHYSICIAN] - 3-5 Days Anant Curran DO [Primary Care Provider] - 3-5 Days
[2019-04-09 15:07] VITALS: BP 121/78; PULSE 82; RESP 18; O2SAT 98
== END 2019-04-09 15:08 | disposition home or self-care (01) ==
PROVIDERS: Emergency Provider Emergency Medicine; Family Provider Family Medicine; PCP Family Medicine
DX: R07.89 Other chest pain (principal)
CPT/HCPCS: 71275; 80048; 84484; 84703; 85025; 93005; 96360; 96361; 99284; J7030; Q9967; A4216

== ENCOUNTER → 2019-04-10 13:40 | Outpatient (CLI) | payer MEDICAID, SELFPAY ==
[2019-04-10 11:53] VITALS: BMI 33.7
[2019-04-10 13:43] LABS: Bacteria 0 SEEN /hpf (None Seen); Mucous, Urine 0 SEEN /hpf (<or=2+); Red Blood Cells-Urine 0 SEEN /hpf (0-5); White Blood Cells 0 SEEN /hpf (0-5)
[2019-04-10 14:53] LABS: Color, Urine Yellow (Yellow); Glucose, Dipstick Normal (Normal); Ketone-Dipstick Negative (Negative); Leukocyte Esterase-Dipstick Negative /ul (Negative); Nitrite-Dipstick Negative (Negative); Occult Blood-Urine 10 /ul (Negative); Protein-Dipstick Negative (Negative); Urine Bilirubin Dipstick Negative (Negative); Urine Clarity Clear (Clear); Urine Urobilinogen Normal (Normal)
[2019-04-10 15:08] LABS: Squamous Epithelial Cells - UA 0-5 SEEN /hpf (5-10)
[2019-04-13 13:45] LABS: HPV APTIMA, High Risk Negative (Negative)
== END ==
PROVIDERS: Family Provider Family Medicine; PCP Family Medicine; Visit Provider Nurse Practitioner Women's Health
DX: R35.0 Frequency of micturition (principal); Z12.4 Encounter for screening for malignant neoplasm of cervix
CPT/HCPCS: 81001; 87086; 87088; 87624; 88175; G0145

== ENCOUNTER → 2019-05-16 | Outpatient (CLI) | payer MEDICAID, SELFPAY ==
[2019-05-16 10:45] VITALS: BMI 33.7
== END | disposition home or self-care (01) ==
LOC: LABSPEC 13:57
PROVIDERS: PCP Family Medicine; Referring Provider Nurse Practitioner Women's Health; Visit Provider Nurse Practitioner Women's Health
DX: N89.8 Other specified noninflammatory disorders of vagina (principal); N94.9 Unspecified condition associated with female genital organs and menstrual cycle
CPT/HCPCS: 87086; 87088; 87255

== ENCOUNTER → 2019-06-01 | Outpatient (CLI) | payer MEDICAID, SELFPAY ==
[2019-05-16 10:45] VITALS: BMI 33.7
== END | disposition home or self-care (01) ==
PROVIDERS: PCP Family Medicine; Visit Provider Family Medicine
DX: A69.20 Lyme disease, unspecified (principal); M25.50 Pain in unspecified joint; R21 Rash and other nonspecific skin eruption
CPT/HCPCS: 36415

== ENCOUNTER 2019-08-13 03:02 | Emergency (ER) | payer MEDICAID, SELFPAY ==
[2019-06-01 15:04] VITALS: BMI 33.9
[2019-08-13 03:03] VITALS: BP 144/80; PULSE 86; RESP 17; TEMP 36.9; O2SAT 100; BMI 34.1
--- NOTE | 2019-08-13 03:24 | CT_ITS ---
STUDY: CT ABDOMEN AND PELVIS WITHOUT CONTRAST REASON FOR EXAM: Female, 33 years old. PT STATED MID ABDOM PAIN X 1 WEEK, HX C SECTION, INGUINAL HERNIA, unilateral salpingoophrectomy RADIATION DOSAGE (If Supplied By Facility): CTDIvol = ( 16.78 ) mGy, DLP = ( 859.58 ) mGycm TECHNIQUE: Transaxial images were obtained from the dome of the diaphragm to the symphysis pubis without oral contrast, and without intravenous contrast. Sagittal and coronal images were reconstructed. Individualized dose optimization techniques were used for this CT. COMPARISON: 02/25/2019 FINDINGS: The visualized lung bases are unremarkable. The visualized portions of the heart are within normal limits. Normal liver. Normal gallbladder and extrahepatic biliary system. Normal spleen. Normal pancreas. Normal bilateral adrenal glands. There are multiple tiny bilateral kidney stones. There are NO ureteral stones. There is NO hydronephrosis. The urinary bladder is unremarkable. Normal visualized stomach. Normal small intestine. Normal colon. The appendix is visualized and appears normal. Normal abdominal aorta. Normal inferior vena cava. Normal retroperitoneum. Uterus is unremarkable. There is a 2 cm cyst in the RIGHT ovary. There is NO ascites, free air, abscess or adenopathy. There is a tiny umbilical hernia containing fat only. Normal osseous structures. CT/Abdomen/Pelvis without Cont IMPRESSION: There are multiple tiny bilateral kidney stones. There are NO ureteral stones. There is NO hydronephrosis. The urinary bladder is unremarkable. Normal visualized stomach. Normal small intestine. Normal colon. The appendix is visualized and appears normal. Uterus is unremarkable. There is a 2 cm cyst in the RIGHT ovary. There is NO ascites, free air, abscess or adenopathy. Electronically Signed: Fermín Schwartz MD at 4:49 EDT , Service support ,
[2019-08-13 03:33] LABS: Absolute Lymphocyte Count 3.18 X10^3/uL (0.83-4.51); Absolute Neutrophil Count 7.2 X10^3/uL (2.0-7.7); Basophil# 0.03 X10^3/uL; Basophil% 0.3 % (0-1); Eosinophil# 0.14 X10^3/uL; Eosinophils% 1.2 % (0-5); Hematocrit 39.1 % (37-47); Hemoglobin 12.3 g/dL (12.0-15.0); Lymphocyte # 3.18 X10^3/ul (4.0); Lymphocyte % 28.1 % (19-41); Mean Corp Hgb Conc 31.5 g/dL (32-36); Mean Corpuscular Hgb 26.5 pg (27.0-32.0); Mean Corpuscular Volume 84.1 fL (81-99); Mean Platelet Vol. 9.1 fl (6.2-12.0); Monocyte# 0.77 X10^3/uL; Monocyte% 6.8 % (0-10); NRBC Flagged by Analyzer 0 % (0-5); Neutrophil # 7.18 X10^3/uL (2.7-7.7); Neutrophil % 63.3 % (47-70); Platelet Count 298 K/mm3 (150-450); RBC Distribution Width CV 13.2 % (11.6-14.6); RBC Distribution Width SD 39.8 fl (35.1-43.9); Red Blood Count 4.65 M/mm3 (4.2-5.4); White Blood Count 11.3 K/mm3 (4.4-11.0)
[2019-08-13] MEDS: 0.9% Normal Saline 1,000 ML 1000 ML IV (03:33)
[2019-08-13] MEDS: Ondansetron 4 MG/2 ML Vial IV (03:33)
[2019-08-13] MEDS: Dicyclomine 20 MG/2 ML Vial IM (03:34)
--- NOTE | 2019-08-13 03:34 | ED.VIS.GEN ---
History of Present Illness Chief Complaint: Abd Pain Informant: Patient Narrative: Presents with abdominal pain nausea vomiting and loose stools for about a week. She denies any fever or chills she denies any dysuria or hematuria she is complaining of slight polyuria. She has no urgency. She denies back pain or flank pain. She has mild lower abdominal pain it is bilateral. She gets nauseated when she eats food. Past Medical History - Allergies and Home Meds Allergies/Adverse Reactions: Allergies acetaminophen [From Vicodin] Allergy (Severe, Verified 08/13/19 03:07) Itching cyclobenzaprine [From Flexeril] Allergy (Severe, Verified 08/13/19 03:07) Mental status change hydrocodone [From Vicodin] Allergy (Severe, Verified 08/13/19 03:07) Itching latex Allergy (Mild, Verified 08/13/19 03:07) Unknown cephalexin monohydrate [From Keflex] Allergy (Verified 08/13/19 03:07) Anaphylaxis eucalyptus Adverse Reaction (Severe, Verified 08/13/19 03:07) tachycardia, close airway NSAIDS (Non-Steroidal Anti-Inflamma Adverse Reaction (Severe, Verified 08/13/19 03:07) GI upset tizanidine Adverse Reaction (Severe, Verified 08/13/19 03:07) Low HR ciprofloxacin [From Cipro] Adverse Reaction (Verified 08/13/19 03:07) diarrhea, nausea, tachycardia doxycycline Adverse Reaction (Verified 08/13/19 03:07) Diarrhea Primary Care Physician: Anant Curran DO [Primary Care Provider] - Past Medical History: - - Noncontributory Surgical History: - - History of left fallopian tube removal. Hernia, Lives: With Family Smoking Status: Never smoker Review of Systems All systems negative except as indicated General: Denies: Fever ENT: Denies: Sore throat Cardiovascular: Denies: Chest pain Respiratory: Denies: Dyspnea Gastrointestinal: Reports: Abdominal pain, Nausea, Vomiting, Diarrhea Genitourinary: Denies: Dysuria Musculoskeletal: Denies: Myalgias, Arthralgias Skin: Denies: Rash Psych: Denies: Depression Endocrine: Reports: Polyuria. Denies: Polydipsia Hematologic: Denies: Easy bruising Physical Exam Vital Signs/Narrative: Vital Signs Temp Pulse Resp BP Pulse Ox 08/13/19 03:03 98.5 F 86 17 144/80 H 100 General: Well nourished, Well developed Head: Normocephalic ENT: Moist mucous membranes Neck: Supple, Nontender Respiratory: No distress Abdomen: Soft, - - There is slight bilateral lower abdominal pain without any guarding or rebound. There is no pain specifically at McBurney's. There is no upper abdominal pain. There is no guarding or rebound. Back: Nontender, Normal Inspection Extremities: Nontender, No edema Skin: Normal color Neurological: Alert, Oriented x3 Diagnostic/Tx/Re-eval - Medical Decision Making She has a normal emergency department work-up including urinalysis and CT of the abdomen and pelvis. She appears well. Her symptoms have been ongoing for about a week. She can follow-up with PCP otherwise I will treat with symptomatic treatment for home. ED Disposition - Plan for ED Patient: Disposition: Home or Assisted Living Diagnosis: Abdominal pain Instructions: ED Abdominal Pain Unkn Cause Fem Prescriptions: Dicyclomine HCl [Bentyl] 20 mg PO TIDAC #20 cap Transmission Status: Pending to [id number] Ondansetron [Zofran Odt] 4 mg PO Q8H PRN PRN #10 tab PRN Reason: Nausea Transmission Status: Pending to [id number] Referrals: Anant Curran DO [Primary Care Provider] - 3-5 Days
[2019-08-13 03:48] LABS: Internal QC Validated? YES +Cl - CLEAR BKGD; Pregnancy, Serum, hCG Quali. NEGATIVE Negative
[2019-08-13 03:52] LABS: Bacteria 0 SEEN /hpf (None Seen); Mucous, Urine 0 SEEN /hpf (<or=2+); Red Blood Cells-Urine 0 SEEN /hpf (0-5); White Blood Cells 0 SEEN /hpf (0-5)
[2019-08-13 03:53] LABS: ALB/GLOB Ratio 0.9 RATIO (0.9-2.4); AST(SGOT) 23 U/L (15-37); Alanine Aminotransfer ALT/SGPT 31 U/L (13-56); Albumin, Serum 3.7 g/dL (3.2-5.0); Alkaline Phosphatase 82 U/L (45-117); Anion Gap 7 (5-15); BUN 11 mg/dL (7-18); BUN/Creat Ratio 11.4 RATIO (10-20); Chloride 103 mmol/L (98-107); Creatinine, Serum 0.96 mg/dL (0.55-1.02); EST Glomerular Filtration Rate 70 mL/min (>60); Est Glom Filt Rate - Afr Amer 85 mL/min (>60); Estimated Creatinine Clearance 64.69 ml/min; Globulin 4.2 g/dL (2.2-4.2); Glucose 98 mg/dL (74-106); Lipase 207 U/L (73-393); Potassium 3.4 mmol/L (3.5-5.1); Protein, Total 7.9 g/dL (6.4-8.2); Sodium Level 139 mmol/L (136-145)
[2019-08-13 03:56] LABS: Color, Urine Yellow (Yellow); Glucose, Dipstick Normal (Normal); Ketone-Dipstick Negative (Negative); Leukocyte Esterase-Dipstick Negative /ul (Negative); Nitrite-Dipstick Negative (Negative); Occult Blood-Urine Negative /ul (Negative); Protein-Dipstick Negative (Negative); Urine Bilirubin Dipstick Negative (Negative); Urine Clarity Sl. Cloudy (Clear); Urine Urobilinogen Normal (Normal)
[2019-08-13 04:35] LABS: Squamous Epithelial Cells - UA 0-5 SEEN /hpf (5-10)
[2019-08-13 05:10] VITALS: PULSE 80; RESP 17; O2SAT 98
== END 2019-08-13 05:19 | disposition home or self-care (01) ==
LOC: ED 05:16
PROVIDERS: Emergency Provider Emergency Medicine; PCP Family Medicine
DX: R10.30 Lower abdominal pain, unspecified (principal)
CPT/HCPCS: 74176; 80053; 81001; 83690; 84703; 85025; 96361; 96372; 96374; 99284; J7030; A4216; J2405

== ENCOUNTER → 2019-09-05 | Outpatient (CLI) | payer MEDICAID, SELFPAY ==
[2019-09-05 15:04] VITALS: BMI 34.1
[2019-09-05 16:21] LABS: Absolute Lymphocyte Count 3.04 X10^3/uL (0.83-4.51); Absolute Neutrophil Count 5.2 X10^3/uL (2.0-7.7); Basophil# 0.03 X10^3/uL; Basophil% 0.3 % (0-1); Eosinophil# 0.11 X10^3/uL; Eosinophils% 1.2 % (0-5); Hematocrit 39.5 % (37-47); Hemoglobin 12.3 g/dL (12.0-15.0); Lymphocyte # 3.04 X10^3/ul (4.0); Lymphocyte % 34.1 % (19-41); Mean Corp Hgb Conc 31.1 g/dL (32-36); Mean Corpuscular Hgb 26.7 pg (27.0-32.0); Mean Corpuscular Volume 85.9 fL (81-99); Mean Platelet Vol. 9.1 fl (6.2-12.0); Monocyte# 0.47 X10^3/uL; Monocyte% 5.3 % (0-10); NRBC Flagged by Analyzer 0 % (0-5); Neutrophil # 5.24 X10^3/uL (2.7-7.7); Neutrophil % 58.9 % (47-70); Platelet Count 289 K/mm3 (150-450); RBC Distribution Width CV 13.6 % (11.6-14.6); White Blood Count 8.9 K/mm3 (4.4-11.0)
[2019-09-05 16:58] LABS: Estradiol 73.7 pg/mL; Follicle Stimulating Hormone 1.5 mIU/mL; Prolactin 12.6 ng/mL; T4 Free Direct 0.79 ng/dL (0.76-1.46); Thyroid Stim Hormone (TSH) 0.55 uIU/mL (0.358-3.74)
[2019-09-09 11:16] LABS: Testosterone Free 3.2 pg/mL (0.0-4.2)
== END | disposition home or self-care (01) ==
LOC: LAB 15:47 → LABSPEC 16:45
PROVIDERS: PCP Family Medicine; Referring Provider Obstetrics & Gynecology; Visit Provider Obstetrics & Gynecology
DX: N80.9 Endometriosis, unspecified (principal); N91.1 Secondary amenorrhea; R10.2 Pelvic and perineal pain
CPT/HCPCS: 82627; 82670; 83001; 84146; 84402; 84439; 84443; 85025; 87086; 87088; 82626

== ENCOUNTER → 2019-09-07 | Outpatient (CLI) | payer MEDICAID, SELFPAY ==
[2019-09-05 15:04] VITALS: BMI 34.1
--- NOTE | 2019-09-07 13:36 | US_ITS ---
STUDY: ULTRASOUND OF THE FEMALE PELVIS - COMPLETE REASON FOR EXAM: Female, 34 years old. MIDLINE PELVIC PAIN WORST POST MEALS LMP SEVERAL MO AGO -- LT OOPHORECTOMY LMP: Several months ago. TECHNIQUE: Transabdominal and Transvaginal TECHNICAL QUALITY: Adequate. COMPARISON: Comparison is made with prior study dated December 23, 2018. FINDINGS: The uterus is anteverted and is in a midline position. The uterus measures 11.1 cm x 5.8 cm x 4.2 cm. There is a Nabothian cyst of the cervix. The endometrium is thickened and measures 16.4 mm in thickness, and is hyperechoic. There is no demonstrated endometrial mass. There is no demonstrated myometrial mass. I.U.D. - The patient does not have an I.U.D. The right ovary is visualized. The right ovary measures 4.1 cm x 3 cm x 1.9 cm. There is no right ovarian cyst or ovarian mass. There is no visualized right adnexal mass or complex lesion. There is normal arterial and normal venous vascularity. The patient is status post left oophorectomy. There is no fluid in the cul-de-sac. US/Pelvic (Non ) IMPRESSION: Thickened endometrial stripe. Electronically Signed: Darrel Dunbar, at 15:13 EDT , Service support ,
--- NOTE | 2019-09-07 13:36 | US_ITS ---
STUDY: ULTRASOUND OF THE FEMALE PELVIS - COMPLETE REASON FOR EXAM: Female, 34 years old. MIDLINE PELVIC PAIN WORST POST MEALS LMP SEVERAL MO AGO -- LT OOPHORECTOMY LMP: Several months ago. TECHNIQUE: Transabdominal and Transvaginal TECHNICAL QUALITY: Adequate. COMPARISON: Comparison is made with prior study dated December 23, 2018. FINDINGS: The uterus is anteverted and is in a midline position. The uterus measures 11.1 cm x 5.8 cm x 4.2 cm. There is a Nabothian cyst of the cervix. The endometrium is thickened and measures 16.4 mm in thickness, and is hyperechoic. There is no demonstrated endometrial mass. There is no demonstrated myometrial mass. I.U.D. - The patient does not have an I.U.D. The right ovary is visualized. The right ovary measures 4.1 cm x 3 cm x 1.9 cm. There is no right ovarian cyst or ovarian mass. There is no visualized right adnexal mass or complex lesion. There is normal arterial and normal venous vascularity. The patient is status post left oophorectomy. There is no fluid in the cul-de-sac. US/Transvaginal Non- IMPRESSION: Thickened endometrial stripe. Electronically Signed: Darrel Dunbar, at 15:13 EDT , Service support ,
== END | disposition home or self-care (01) ==
LOC: US 13:36
PROVIDERS: PCP Family Medicine; Referring Provider Obstetrics & Gynecology; Visit Provider Obstetrics & Gynecology
DX: N80.9 Endometriosis, unspecified (principal)
CPT/HCPCS: 76830; 76856

== ENCOUNTER → 2019-10-02 | Outpatient (CLI) | payer MEDICAID, SELFPAY ==
[2019-09-12 14:24] VITALS: BMI 34.1
[2019-10-02 09:44] VITALS: BMI 34.1
--- NOTE | 2019-10-02 10:05 | NM_ITS ---
CLINICAL: 34-year-old female with reported history of abdominal pain and nausea. RADIONUCLIDE HEPATOBILIARY SCINTIGRAPHY COMPARISON: CT of the abdomen-pelvis report 08/13/2019 FINDINGS: Following the intravenous administration of 5.1 mCi of 99m Tc Mebrofenin, hepatobiliary images reveal: 1. Relatively prompt and homogeneous radiopharmaceutical concentration is noted by a normal sized liver. No parenchymal defects are identified. 2. Gallbladder activity is identified at 10 minutes post radiopharmaceutical administration. 3. Small intestinal tract is observed by 60 minutes following tracer injection. 4. Washout of the radiopharmaceutical by the hepatic parenchyma appears qualitatively normal. Cholecystokinin (0.02 ug/kg) was administered intravenously over a 30-minute period. The post CCK gallbladder ejection fraction calculated at 20 minutes following Cholecystokinin administration was noted to be 28.0 % (normal greater than 35%). There is scintigraphic evidence of subtle post cholecystokinin duodenal-gastric reflux. NM/Hepatobilliary Img w/Pharm Int IMPRESSION: 1. ABNORMAL 99m Tc Mebrofenin hepatobiliary imaging examination with Cholecystokinin. A. A gallbladder ejection fraction calculated to be less than 35% following the administration of Cholecystokinin is consistent with the presence of functional hepatobiliary disease (gallbladder and/or sphincter of Oddi dyskinesia) and/or organic hepatobiliary disease (chronic acalculous cholecystitis and/or cystic duct syndrome) in patients with intermediate to high pretest probabilities of hepatobiliary illness. (Maria Ines Lizarraga et al, Journal of Nuclear Medicine 32:1695, 1990). B. There is scintigraphic evidence of post CCK duodenal-gastric reflux. (Alphonse et al, Nucl Med Sanjuanita Sally Press pg. 35, 1980). Electronically Signed: Josue Thomson DO at 19:50 EDT Tel , Service support ,
== END | disposition home or self-care (01) ==
LOC: NM 10:05
PROVIDERS: PCP Family Medicine; Referring Provider Surgery; Visit Provider Surgery
DX: R10.13 Epigastric pain (principal)
CPT/HCPCS: 78227; A9537; J2805

== ENCOUNTER → 2019-10-20 | Outpatient (CLI) | payer MEDICAID, SELFPAY ==
[2019-10-13 14:12] VITALS: BMI 34.1
[2019-10-20 11:32] LABS: Bacteria 0 SEEN /hpf (None Seen); Mucous, Urine 0 SEEN /hpf (<or=2+); Red Blood Cells-Urine 0 SEEN /hpf (0-5); White Blood Cells 0 SEEN /hpf (0-5)
[2019-10-20 15:36] LABS: Color, Urine Yellow (Yellow); Glucose, Dipstick Normal (Normal); Ketone-Dipstick Negative (Negative); Leukocyte Esterase-Dipstick Negative /ul (Negative); Nitrite-Dipstick Negative (Negative); Occult Blood-Urine Negative /ul (Negative); Protein-Dipstick Negative (Negative); Specific Gravity, Urine 1.015 (1.002-1.030); Urine Bilirubin Dipstick Negative (Negative); Urine Clarity Clear (Clear); Urine Urobilinogen Normal (Normal)
[2019-10-20 16:30] LABS: Squamous Epithelial Cells - UA 5-10 SEEN /hpf (5-10)
== END | disposition home or self-care (01) ==
PROVIDERS: PCP Family Medicine; Referring Provider Family Medicine; Visit Provider Family Medicine
DX: E55.9 Vitamin D deficiency, unspecified (principal); N20.9 Urinary calculus, unspecified; R30.0 Dysuria
CPT/HCPCS: 81001; 82360; 87086; 87088

== ENCOUNTER 2019-10-27 18:11 | Observation (INO) | payer MEDICAID, SELFPAY ==
[2019-10-13 14:12] VITALS: BMI 34.1
--- NOTE | 2019-10-25 09:01 | HP_ITS ---
Intake Vital Signs 10/13/19 BMI 34.1 Intake Visit Reasons: Discuss Gall Bladder Surgery Chief Complaint: possible gallbladder issues Supply Chain Specialist Required: No Is patient in pain?: Yes (Epigastric to back) Allergies acetaminophen [From Vicodin] Allergy (Severe, Verified 10/19/19 09:17) Itching cyclobenzaprine [From Flexeril] Allergy (Severe, Verified 10/19/19 09:17) Mental status change hydrocodone [From Vicodin] Allergy (Severe, Verified 10/19/19 09:17) Itching latex Allergy (Mild, Verified 10/19/19 09:17) Swelling cephalexin monohydrate [From Keflex] Allergy (Verified 10/19/19 09:17) Anaphylaxis eucalyptus Adverse Reaction (Severe, Verified 10/19/19 09:17) tachycardia, close airway NSAIDS (Non-Steroidal Anti-Inflamma Adverse Reaction (Severe, Verified 10/19/19 09:17) GI upset tizanidine Adverse Reaction (Severe, Verified 10/19/19 09:17) Low HR ciprofloxacin [From Cipro] Adverse Reaction (Verified 10/19/19 09:17) diarrhea, nausea, tachycardia doxycycline Adverse Reaction (Verified 10/19/19 09:17) Diarrhea Medications multivitamin 1 tab PO DAILY 12/13/17 [History Confirmed 10/19/19] Atenolol [Tenormin (beta edson)] 12.5 mg PO BID PRN 04/09/19 [History Confirmed 10/19/19] Biotin 2 tab PO DAILY 04/09/19 [History Confirmed 10/19/19] Cholecalciferol (Vitamin D3) [Vitamin D3] 2,000 unit PO DAILY 04/09/19 [History Confirmed 10/19/19] Ondansetron [Zofran Odt] 4 mg PO Q8H PRN PRN #10 tab 08/13/19 [Rx Confirmed 10/19/19] cetirizine 10 mg tablet 10 mg PO DAILY 09/05/19 [History Confirmed 10/19/19] hydrocortisone 2.5 % topical ointment 1 applic TOPICAL BID #28.35 g 09/05/19 [Rx Confirmed 10/19/19] pantoprazole 40 mg tablet,delayed release 40 mg PO DAILY #30 tab 09/12/19 [Rx Confirmed 10/19/19] Albuterol Inhaler [Ventolin Hfa (SP)] 1 - 2 puff INHALATION Q6H PRN PRN 10/19/19 [History Confirmed 10/19/19] Ivermectin [Soolantra] 30 gm TP DAILY 10/19/19 [History Confirmed 10/19/19] PFSH Social History (Updated 10/25/19 @ 09:[address] Ana Lilia Burt MD) Smoking Status: Never smoker alcohol intake: never substance use type: does not use caffeine: No what type of physical activity do you participate in: walking frequency: 5-6 times per week seatbelt use: always do you feel safe at home: Yes additional social history: Single- Currently unemployed HPI HPI HPI: YAA ARCE, is a 34 F who presents to the office today for HPI HPI Surgical H&P: Yes HPI: YAA ARCE, is a 34 F who presents to the office today for continued abdominal pain discuss HIDA scan results. Patient's HIDA scan did have ejection fraction of 28% which is abnormal. Patient's initial ultrasound did not show any gallstones or sludge normal common bile duct, fatty liver gallbladder wall 2 mm and normal liver functions at that time. Patient states she still gets some epigastric pain that goes back to her back and shoulders after eating it has improved somewhat with the PPI but has not completely resolved. Patient did have one episode of bright red blood per rectum and pain her last visit however she has not had any since that episode. Patient will plan to have exploratory laparoscopy with Dr. Garcia for endometriosis and for possible combined case. ROS General General: Yes weight change and fatigue; no appetite, colon cancer, breast cancer or weakness HEENT HEENT: No difficulty swallowing, eye injury, eye surgery, swollen glands or hoarseness Endo Endocrine: No thyroid disease, diabetes mellitus, thyroid cancer, Hair loss, heat intolerance or cold intolerance Skin Skin: No rash or changing moles Breast Breast: No left breast lump, right breast lump, nipple discharge, breast pain, abnormal mammogram, abnormal US or breast enlargement Musc Musculoskeletal: Yes back problems, arthritis and rheumatoid arthritis; no gout or joint pain Cardio Cardiovascular: Yes high blood pressure; no pacemaker, heart disease, atrial fibrillation, heart attack, heart stent, palpitations, shortness of breat with exertion or chest pain Psych Psychiatric: Yes anxiety; no depression or hearing voices Resp Respiratory: No shortness of breath, Yes sleep apnea, No cough, No COPD, Yes asthma, No emphysema, No wheezing Gastro Gastrointestinal: Yes abdominal pain, Yes nausea or vomiting, Yes diarrhea, Yes constipation, No blood in stool, Yes acid reflux, Yes hemorrhoids, No ulcers, Yes gallbladder problem, No black,tarry stools Marcus Hematologic: No blood thinners, No blood disorders, No bleeding, No anemia, No blood clots Neuro Neurologic: No weakness Exam Const General: cooperative, comfortable, no acute distress, well developed Chest Breast Palpation: No nipple discharge Resp Effort & Inspection: normal respiratory effort Cardio Rate: regular rate GI Inspection: non-distended Palpation: soft, tender Assessment & Plan Problems 1. Biliary dyskinesia K82.8 Plan Reviewed the anatomy with the patient and discussed the procedure: laparoscopic cholecystectomy with possible cholangiograms, possible open. Review risks including but not limited to bleeding, infection, hernia, bile leak, retained gallstones requiring another procedure ERCP- Endoscopic Retrograde Cholangiopancreatography, injury to another organ (bile ducts, common bile duct, small bowel, etc.) may require possible transfer to a tertiary care facility. And conversion to an open procedure. All questions were answered. Due to my maternity leave and patient's previous schedule unable to schedule with me prior to October. Patient did also meet with Dr. Nova and planning to do the combined case with Dr. Garcia and Dr. Nova. Ana Lilia Burt M.D. Pager: [phone] [facility] [address] [place] [address], [address] [place] [address] Office: [phone] Plan Detail Follow Up Surgery is scheduled Coding Level of Care Code Off vis,est,level 3 Diagnoses Biliary dyskinesia K82.8 COVID (Procedure Consent) Procedure Criteria Procedure Criteria: Yes Elective The surgeon/proceduralist and patient have discussed in detail the risk of exposure to and/or potential harm posed by the COVID-19 virus with having a surgery/procedure at this time versus the risk of? delaying the surgery/procedure. It is not possible to know either the risk of delaying the surgery or procedure or chance of getting an infection with perfect accuracy, but a joint decision was made between the patient and the surgeon/proceduralist ?to proceed at this time with the scheduled surgery/procedure as indicated on the consent form. 10/25/19 0901 <Electronically signed by Ana Lilia Montanez am, MD> Date _ Ana Lilia Burt MD
[2019-10-27] VITALS (15 sets, daily range): BP systolic 89–130; BP diastolic 55–82; PULSE 58–101; RESP 16–20; TEMP 36.5–37.3; O2SAT 85–100; BMI 34.4; BMI 32.0
--- NOTE | 2019-10-27 | CALC_PTH ---
PATIENT: YAA ARCE LOC: MS3 U#:[id number] AGE/SX: 34/F ROOM: MS315 RE10/27/[address]: Dr. Sonny Nova MD : 1985 BED: 1 DIS: 10/28/2019 SPEC #: [id number] RECD: 10/27/19 08:20 STATUS: GWEN CUELLO #: [id number] JENIFFER: 10/27/19 00:[address]: Sonny Nova DEPT: SURGICAL PATHOLOGY RECD BY: Ayad Staples ENTERED: 10/30/19 08:21 SP TYPE: Calculi OTHR DR: DO Dr. Maci Buchanan MD Tissues: CALCULI Procedures: Surgery Specimen Level I HEADER OPERATION: Laparoscopy, cysto PRE-OP DIAGNOSIS: Biliary dyskinesia TISSUE SUBMITTED: Calculi GROSS DIAGNOSIS A minute fragment of stone. The entire specimen is submitted for stone analysis. SJ:vasyl 10/30/19 COMMENT The calculus is submitted in its entirety for chemical stone analysis. The results from this study will be reported separately. GROSS DESCRIPTION Received is one container labeled with the patient's name and designated calculi. The specimen consists of a minute fragment of hassan-pink stone measuring 0.1 cm in greatest dimension. The entire specimen is submitted for stone analysis. / AUDIE:vasyl 10/30/19 CPT: 85155
--- NOTE | 2019-10-27 | GALL_PTH ---
PATIENT: YAA ARCE LOC: MS3 U#:[id number] AGE/SX: 34/F ROOM: MS315 RE10/27/[address]: Dr. Sonny Nova MD : 1985 BED: 1 DIS: 10/28/2019 SPEC #: [id number] RECD: 10/27/19 13:17 STATUS: GWEN CUELLO #: [id number] JENIFFER: 10/27/19 00:[address]: Sonny Nova DEPT: SURGICAL PATHOLOGY RECD BY: Ayad Staples ENTERED: 10/30/19 08:20 SP TYPE: JOSE CAMERON DR: DO Dr. Maci Buchanan MD Tissues: A - Gallbladder, NOS B - Endometrium, NOS Procedures: Surgery Specimen Level III Surgery Specimen Level IV HEADER OPERATION: Laparoscopic cholecystectomy with IOC PRE-OP DIAGNOSIS: Biliary dyskinesia; severe pelvic adhesions, pelvic congestion TISSUE SUBMITTED: A - Gallbladder, B - Endometrial curettings MICROSCOPIC DIAGNOSIS A. Gallbladder, cholecystectomy: Mild chronic cholecystitis. No stones are identified in the container or in the gallbladder. B. Endometrial curettings: Secretory endometrium. Fragments of benign endocervical mucosa. AUDIE:vasyl 10/31/19 MICROSCOPIC DESCRIPTION Slides are reviewed. GROSS DESCRIPTION A - Received is one container labeled with the patient's name and designated gallbladder. The specimen consists of a gallbladder measuring 6.5 cm in length and up to 3 cm in diameter. The external surface is pink-hassan, smooth and glistening for the most part. Focally it is granular, hemorrhagic and contains cautery artifact. The gallbladder contains green-yellow mucoid bile. No stones are identified in the container or in the gallbladder. The mucosa is bile-stained and without any mass lesions. The gallbladder wall measures up to 0.2 cm in thickness. Consulting Technical Director sections from the gallbladder and the cystic duct are submitted in one cassette. B - Received in fixative is one container labeled with the patient's name and designated endometrial curettings. The specimen consists of multiple fragments of hassan hemorrhagic soft tissue that in aggregate measure 5 x 3 x 0.3 cm. A few of the fragments consist of polypoid fragment. The entire specimen is submitted in two cassettes. / AUDIE:vasyl 10/30/19 TC:3 CPT: 61280, 96337
--- NOTE | 2019-10-27 09:32 | EKG12_ITS ---
Test Reason : PRE OP Blood Pressure : / mmHG Vent. Rate : 069 BPM Atrial Rate : 069 BPM P-R Int : 138 ms QRS Dur : 086 ms QT Int : 402 ms P-R-T Axes : 070 057 056 degrees QTc Int : 430 ms Normal sinus rhythm Normal ECG When compared with ECG of 09-APR-2019 12:31, No significant change was found Confirmed by SHONDA WHARTON, MIMI ([id number]), digital editor ROGELIO RANGEL ([id number]) on 10/30/2019 2:17:08 PM Referred By: Sonny Nova Confirmed By:KARINE MERCHANT MD
[2019-10-27 09:58] LABS: Internal QC Validated? YES +Cl - CLEAR BKGD
[2019-10-27 09:59] LABS: Pregnancy, Urine Negative Negative
[2019-10-27] MEDS: Lactated Ringers 1,000 ML 100 ML IV ×3 (10:08→17:47)
--- NOTE | 2019-10-27 10:19 | PCM.HP.BLA ---
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 Is patient in pain?: Yes (Epigastric to back) Allergies acetaminophen [From Vicodin] Allergy (Severe, Verified 10/19/19 09:17) Itching cyclobenzaprine [From Flexeril] Allergy (Severe, Verified 10/19/19 09:17) Mental status change hydrocodone [From Vicodin] Allergy (Severe, Verified 10/19/19 09:17) Itching latex Allergy (Mild, Verified 10/19/19 09:17) Swelling cephalexin monohydrate [From Keflex] Allergy (Verified 10/19/19 09:17) Anaphylaxis eucalyptus Adverse Reaction (Severe, Verified 10/19/19 09:17) tachycardia, close airway NSAIDS (Non-Steroidal Anti-Inflamma Adverse Reaction (Severe, Verified 10/19/19 09:17) GI upset tizanidine Adverse Reaction (Severe, Verified 10/19/19 09:17) Low HR ciprofloxacin [From Cipro] Adverse Reaction (Verified 10/19/19 09:17) diarrhea, nausea, tachycardia doxycycline Adverse Reaction (Verified 10/19/19 09:17) Diarrhea Medications multivitamin 1 tab PO DAILY 12/13/17 [History Confirmed 10/19/19] Atenolol [Tenormin (beta edson)] 12.5 mg PO BID PRN 04/09/19 [History Confirmed 10/19/19] Biotin 2 tab PO DAILY 04/09/19 [History Confirmed 10/19/19] Cholecalciferol (Vitamin D3) [Vitamin D3] 2,000 unit PO DAILY 04/09/19 [History Confirmed 10/19/19] Ondansetron [Zofran Odt] 4 mg PO Q8H PRN PRN #10 tab 08/13/19 [Rx Confirmed 10/19/19] cetirizine 10 mg tablet 10 mg PO DAILY 09/05/19 [History Confirmed 10/19/19] hydrocortisone 2.5 % topical ointment 1 applic TOPICAL BID #28.35 g 09/05/19 [Rx Confirmed 10/19/19] pantoprazole 40 mg tablet,delayed release 40 mg PO DAILY #30 tab 09/12/19 [Rx Confirmed 10/19/19] Albuterol Inhaler [Ventolin Hfa (SP)] 1 - 2 puff INHALATION Q6H PRN PRN 10/19/19 [History Confirmed 10/19/19] Ivermectin [Soolantra] 30 gm TP DAILY 10/19/19 [History Confirmed 10/19/19] PFS Social History (Updated 10/25/19 @ 09:[address] Ana Lilia Burt MD) Smoking Status: Never smoker alcohol intake: never substance use type: does not use caffeine: No what type of physical activity do you participate in: walking frequency: 5-6 times per week seatbelt use: always do you feel safe at home: Yes additional social history: Single- Currently unemployed HPI HPI HPI: YAA ARCE, is a 34 F who presents to the office today for HPI HPI Surgical H&P: Yes HPI: YAA ARCE, is a 34 F who presents to the office today for continued abdominal pain discuss HIDA scan results. Patient's HIDA scan did have ejection fraction of 28% which is abnormal. Patient's initial ultrasound did not show any gallstones or sludge normal common bile duct, fatty liver gallbladder wall 2 mm and normal liver functions at that time. Patient states she still gets some epigastric pain that goes back to her back and shoulders after eating it has improved somewhat with the PPI but has not completely resolved. Patient did have one episode of bright red blood per rectum and pain her last visit however she has not had any since that episode. Patient will plan to have exploratory laparoscopy with Dr. Garcia for endometriosis and for possible combined case. ROS General General: Yes weight change and fatigue; no appetite, colon cancer, breast cancer or weakness HEENT HEENT: No difficulty swallowing, eye injury, eye surgery, swollen glands or hoarseness Endo Endocrine: No thyroid disease, diabetes mellitus, thyroid cancer, Hair loss, heat intolerance or cold intolerance Skin Skin: No rash or changing moles Breast Breast: No left breast lump, right breast lump, nipple discharge, breast pain, abnormal mammogram, abnormal US or breast enlargement Musc Musculoskeletal: Yes back problems, arthritis and rheumatoid arthritis; no gout or joint pain Cardio Cardiovascular: Yes high blood pressure; no pacemaker, heart disease, atrial fibrillation, heart attack, heart stent, palpitations, shortness of breat with exertion or chest pain Psych Psychiatric: Yes anxiety; no depression or hearing voices Resp Respiratory: No shortness of breath, Yes sleep apnea, No cough, No COPD, Yes asthma, No emphysema, No wheezing Gastro Gastrointestinal: Yes abdominal pain, Yes nausea or vomiting, Yes diarrhea, Yes constipation, No blood in stool, Yes acid reflux, Yes hemorrhoids, No ulcers, Yes gallbladder problem, No black,tarry stools Marcus Hematologic: No blood thinners, No blood disorders, No bleeding, No anemia, No blood clots Neuro Neurologic: No weakness Exam Const General: cooperative, comfortable, no acute distress, well developed Chest Breast Palpation: No nipple discharge Resp Effort & Inspection: normal respiratory effort Cardio Rate: regular rate GI Inspection: non-distended Palpation: soft, tender Assessment & Plan Problems 1. Biliary dyskinesia K82.8 Plan Reviewed the anatomy with the patient and discussed the procedure: laparoscopic cholecystectomy with possible cholangiograms, possible open. Review risks including but not limited to bleeding, infection, hernia, bile leak, retained gallstones requiring another procedure ERCP- Endoscopic Retrograde Cholangiopancreatography, injury to another organ (bile ducts, common bile duct, small bowel, etc.) may require possible transfer to a tertiary care facility. And conversion to an open procedure. All questions were answered. Due to my maternity leave and patient's previous schedule unable to schedule with me prior to October. Patient did also meet with Dr. Nova and planning to do the combined case with Dr. Garcia and Dr. Nova. I reviewed Dr. Burt's H&P and agree with the above. I discussed her CAT scan and her HIDA scan with her. The patient has a decreased ejection fraction she is having pain with eating and issues that we believe are due to her gallbladder. The patient does have a small umbilical hernia on CT and I did discuss doing her surgery through this umbilical hernia but she would like to avoid incisions in her umbilicus as it did take a long time to heal after her last surgery. I discussed the procedure in detail with the patient. I discussed the risks, benefits, and alternatives of the procedure. I discussed the risks including but not limited to bleeding, infection, injury to surrounding organs such as the liver, bile duct, bowels. I did discuss the possibility of having to convert to an open procedure as well as the possibility that if any injuries occurred this may necessitate further surgery at a tertiary care center. Sonny Nova MD Pager: [facility] [address] [place] [address], [address] [place] [address] Office:
[2019-10-27 10:23] LABS: Hematocrit 39.9 % (37-47); Hemoglobin 12.8 g/dL (12.0-15.0); Mean Corp Hgb Conc 32.1 g/dL (32-36); Mean Corpuscular Hgb 27.2 pg (27.0-32.0); Mean Corpuscular Volume 84.9 fL (81-99); Mean Platelet Vol. 9.6 fl (6.2-12.0); Platelet Count 303 K/mm3 (150-450); RBC Distribution Width CV 13.2 % (11.6-14.6); RBC Distribution Width SD 40.5 fl (35.1-43.9); White Blood Count 8.2 K/mm3 (4.4-11.0)
--- NOTE | 2019-10-27 11:28 | RAD_ITS ---
STUDY: INTRAOPERATIVE INTRA CHOLANGIOGRAM. REASON FOR EXAM: Female, 34 years old. PAIN -- 2 FLUORO IMAGES, 12.2 FLUORO SEC, 3.44mGy FLUOROSCOPY TIME (if supplied): ( 12.2 seconds ) minutes/seconds. A cine loop containing 2 images was obtained. TECHNIQUE: Intraoperative cholangiogram was performed by the surgeon. Imaging was obtained. COMPARISON: None. FINDINGS: The visualized intrahepatic and extra hepatic biliary ducts are unremarkable. Free flow of contrast into the duodenum. RAD/Cholangiogram/ O R,Initial IMPRESSION: Unremarkable intraoperative cholangiogram. Electronically Signed: Darrel Dunbar, at 12:07 EDT , Service support ,
--- NOTE | 2019-10-27 12:05 | OP.PCM_ITS ---
Problem List (1) Biliary dyskinesia Status: Acute Report of Operation Date of Procedure: 10/27/19 Pre-Operative Diagnosis: Biliary dyskinesia Post-Operative Diagnosis: Same Surgery/Procedure Performed:: Laparoscopic cholecystectomy with cholangiogram Specimen's removed: Gallbladder and contents Description of Procedure: After obtaining informed consent patient was brought back to the operating room. General anesthesia was induced. The abdomen was prepped and draped in usual sterile fashion. A small midline incision was made superior to the umbilicus and deepened to the level of fascia. The fascia was elevated and incised. Next the peritoneum was elevated and incised in the same fashion. Finger sweep was performed and the Zimmerman trocar was placed into the abdomen. The balloon was inflated. The abdomen was inflated to 15 mmHg. Next a camera was introduced into the abdomen and the abdomen was inspected. Next under direct visualization three 5-mm ports were placed one subxiphoid and 2 subcostal. Next the gallbladder was elevated and retracted toward the right shoulder. The peritoneum was stripped from the gallbladder. The infundibulum was located and retracted laterally. Next the triangle of Calot was dissected and the cystic duct and cystic artery were identified. Cholangiograms were performed. The Reyes clamp was used to clamp across the infundibulum and the catheter needle was inserted into the gallbladder. Under fluoroscopy contrast was instilled into the gallbladder and the common duct, cystic duct as well as proximal hep atic ducts were identified. There was good filling of the duodenum. There were no filling defects noted in the common bile duct. The clamp was removed as well as the needle and the infundibulum was grasped once more. Three hemolock clips were placed across the cystic duct. The cystic duct was then divided leaving 2 clips on the stump. The cystic artery was clipped and divided in the same [facility] ion. The hook cautery was then used to take the gallbladder off of the gallbladder bed. Hemostasis was obtained. Gallbladder fossa was irrigated and no active bleeding or bile leakage was noted. Next the camera was introduced in the subxiphoid port. An Endopouch bag was placed through the umbilical port and the gallbladder was placed into it. The gallbladder was then removed through the umbilical incision. The camera was then reinserted through the umbilical port. The gallbladder fossa was inspected once more and noted to be hemostatic with no leaking bile. The abdomen was suctioned dry. A [id number] Vicryl suture was placed in the fascia and then hemostat was placed. The patient was then placed in the Trendelenburg position and Dr. Garcia's section of the surgery was initiated. Please see her operative note for further details. - Admit VTE Documentation VTE Mechan Device Prophylaxis: SCD's
--- NOTE | 2019-10-27 12:16 | PCM.DC.GB ---
Discharge Diet: Light diet - advance as tolerated Discharge Activity: Return to Normal Activity, May Not Drive - for 2-3 days or while taking narcotic pain medicataions., May Shower, - - Do not drive, work heavy equipment or sign legal documents for 24 hours. May shower in (days): 1 - with the bandage in place. Lifting Restrictions: 20 lbs for 2 weeks Additional Activity Instructions:: Pain medication may cause nausea. You should typically eat light foods as you take your pain medications. Pain medication may also cause constipation. If this is a problem for you, please discuss with your doctor. Call your doctor if your incision/area has: Continuous Slow Oozing, Sudden Increased Bleeding, Increased Pain/ Swelling, Increased Redness, Foul Smelling Discharge, Fever of 101 or Higher Call your doctor if you observe: Fever of 101 or Higher Suture Line Care: Avoid Pulling/Pushing, Avoid Pinching/Bending Additional Dressing/Incision Instructions:: Leave operative bandaids on for 2 days. When you remove dressing, leave Steri-Strips on until your follow-up appointment, or until the Steri-Strips fall off on their own. Allergies/Adverse Reactions: Allergies acetaminophen [From Vicodin] Allergy (Severe, Verified 10/27/19 09:49) Itching cyclobenzaprine [From Flexeril] Allergy (Severe, Verified 10/27/19 09:49) Mental status change hydrocodone [From Vicodin] Allergy (Severe, Verified 10/27/19 09:49) Itching latex Allergy (Mild, Verified 10/27/19 09:49) Swelling cephalexin monohydrate [From Keflex] Allergy (Verified 10/27/19 09:49) Anaphylaxis eucalyptus Adverse Reaction (Severe, Verified 10/27/19 09:49) tachycardia, close airway NSAIDS (Non-Steroidal Anti-Inflamma Adverse Reaction (Severe, Verified 10/27/19 09:49) GI upset tizanidine Adverse Reaction (Severe, Verified 10/27/19 09:49) Low HR ciprofloxacin [From Cipro] Adverse Reaction (Verified 10/27/19 09:49) diarrhea, nausea, tachycardia doxycycline Adverse Reaction (Verified 10/27/19 09:49) Diarrhea Medications to take at Discharge multivitamin 1 tab PO DAILY 12/13/17 Atenolol [Tenormin (beta edson)] 12.5 mg PO BID PRN 04/09/19 Biotin 2 tab PO DAILY 04/09/19 Cholecalciferol (Vitamin D3) [Vitamin D3] 2,000 unit PO DAILY 04/09/19 Ondansetron [Zofran Odt] 4 mg PO Q8H PRN PRN #10 tab 08/13/19 cetirizine 10 mg tablet 10 mg PO DAILY 09/05/19 hydrocortisone 2.5 % topical ointment 1 applic TOPICAL BID #28.35 g 09/05/19 pantoprazole 40 mg tablet,delayed release 40 mg PO DAILY #30 tab 09/12/19 Albuterol Inhaler [Ventolin Hfa (SP)] 1 - 2 puff INHALATION Q6H PRN PRN 10/19/19 Ivermectin [Soolantra] 30 gm TP DAILY 10/19/19 Oxycodone HCl/Acetaminophen [Percocet 5-325 mg Tablet] 1 - 2 tab PO Q6H PRN 5 Days #30 tablet 10/27/19 The following prescriptions were given: Oxycodone HCl/Acetaminophen [Percocet 5-325 mg Tablet] 1 - 2 tab PO Q6H PRN 5 Days #30 tablet PRN Reason: Pain Score 4-10/10 Transmission Status: Sent to [facility] Orders to be completed after discharge: Type & Screen - PAT ONLY Time Frame: 10/27/19, Facility: [facility], Location: Laboratory Primary Care Physician: Anant Curran DO [Primary Care Provider] - Test Results: Test results from this visit will be discussed in further detail at your follow-up appointment, if applicable. Please Follow Up With: Sonny Nova MD When: Please call to schedule 2 week follow up appointment. [phone] Please Follow Up With: Maci Garcia MD When: Call to make 2 week postoperative appointment [phone]
[2019-10-27] MEDS: Bupiv/Epi 0.25% 30 ML Vial (13:00)
[2019-10-27] MEDS: Morphine 4 MG/ML Syringe IV (19:57)
[2019-10-27] MEDS: Ketorolac 30 MG/ML Syringe IV (23:34)
[2019-10-28 00:13] VITALS: BP 108/71; PULSE 70; RESP 18; TEMP 36.4; O2SAT 100
[2019-10-28] MEDS: oxyCODONE 5 MG Tablet PO ×3 (00:34→12:48)
[2019-10-28] MEDS: LORazepam 0.5 MG Tablet PO (00:35)
--- NOTE | 2019-10-28 02:24 | OP.PCM_ITS ---
Problem List (1) History of Status: Resolved (2) Hx of removal of ovary Status: Resolved Comment: endometriosis, 2015 torsion laparoscopic (3) Endometriosis Status: Acute (4) Abdominal pain Status: Acute Report of Operation Date of Procedure: 10/27/19 Pre-Operative Diagnosis: Chronic pelvic pain Post-Operative Diagnosis: Same plus pelvic congestion, severe uterine to anterior abdominal wall adhesions Surgery/Procedure Performed:: larparoscopic lysis of adhesions Description of Surgical Findings:: adhesions of sigmoid colon to left pelvic sidewall, enlarged boggy leiomyomatous uterus severely scarred to the anterior abdominal wall with anterior cephalad displacement of the uterus, severe vesicouterine adhesions. Left ovary absent. Right ovary cystic in appearance. Right severe hydrosalpinx with anterior abdominal wall adhesions and clubbing of fallopian tube. Increased pelvic vasculature suggestive of pelvic congestion. Very poor visualization and limited vaginal access to cervix. Small cervical diameter. Uterus sounded to 10 cm. Bladder lining with appearance of petechiae with mild to moderate distention. Thickened polypoid lining of the endometrium protective officer: Ji Horne Type of Anesthesia:: General Special Medications: rolando, intercede Specimen's removed: see michael note Drains: garnett Estimated Blood Loss (mL): 25 Fluids Replaced: crystalloid Description of Procedure: Please see surgery dictation note for port placement and cholecystectomy information. Garnett catheter was placed in the bladder and an attempt was made to grasp the cervix to insert a uterine manipulator and this was unable to be done due to very poor vaginal access and extreme displacement of the uterine cervix cephalad as well as the small approximately 2 cm size of the cervix itself. Attention was paid to the laparoscopic portion of the procedure and upon visualization of the pelvic structures, very severe uterine to anterior abdominal wall adhesions were noted please see operative details for additional findings. Using blunt dissection and the LigaSure device for sharp dissection and cautery some left sigmoid colon adhesions were taken down followed by progressive removal of the cephalad displaced uterus that was scarred to the anterior abdominal wall. Dense chronic scarring was noted that seem to be disproportionate with only having a previous so some of the scarring may be due to old endometriosis. No active endometriosis lesions were seen upon inspecting the entire abdomen. Progressive dissection both bluntly, sharply, and using cautery from the LigaSure device proceeded to separate the uterus from the anterior abdominal wall down to the level of the bladder and vesicouterine adhesions were taken down. The right fallopian tube was noted to be a significant hydrosalpinx that was folded up over and attached anteriorly to the anterior abdominal wall which was taken down bluntly and with the LigaSure device. The round ligament on the right side was noted to be widened, elongated and scarred to the pelvic sidewall and part of this was taken down to restore normal anatomy. Uterus was freely movable and anatomical structures were well visualized anteriorly and posteriorly with a cystic ovary seen on the right side. The uterus was noted to be boggy and had enlarged veins going from it as well as increased vasculature that appeared congested. At this time no additional adhesions were seen and due to the patient not being consented for fallopian tube removal and the recommendation that will be made for proceeding with a hysterectomy if persistent pain the procedure was completed and Rolando placed over the raw areas of anterior dissection and with excellent hemostasis a sheet of Interceed was placed over the anterior uterine wall to prevent future adhesions. All ports removed from the abdomen fascial suture was tied that had been previously placed at the umbilical site and hysteroscopy was performed. There is still difficult the anterior lip of the cervix was able to be grasped and with scant descent cervix was identified and uterus sounded to 10 cm. Hysteroscopy was performed and thickened polypoid lining was seen but no gross abnormalities. Sharp curettage was performed and a large amount of polypoid endometrium was removed and sent to pathology for analysis. Cystoscopy was then performed with a 70 degree scope to visualize the bladder lining and the bladder was moderately distended and significant petechiae was noted upon distention and increased trabeculations. Bladder was drained and re-visualized with bilateral ureteral spray seen. No gross abnormalities other than that described were seen to the bladder lining. All instruments removed from the patient sponge lap and needle counts were correct and patient was awoken and taken recovery in stable condition. Total lysis of adhesions lasted approximately 50 minutes. Grafts/Implants Used: none - Complications none - Admit VTE Documentation VTE Present on Admission: No VTE Mechan Device Prophylaxis: SCD's Multi Select Codes - Urinary/Genital Urinary/Genital CPT Codes: 84792 Cystoscopy, 27164 Hysteroscopy,EMC, Polypectomy, 42680 Lysis of adhesions, laproscopic
[2019-10-28] MEDS: Lactated Ringers 1,000 ML 100 ML IV (03:26)
[2019-10-28 03:39] VITALS: BP 118/69; PULSE 63; RESP 20; TEMP 36.9; O2SAT 99
[2019-10-28] MEDS: Ketorolac 30 MG/ML Syringe IV ×2 (05:56→12:47)
[2019-10-28] MEDS: Pantoprazole Sodium 40 MG Tablet PO (08:12)
[2019-10-28 08:21] VITALS: BP 114/74; PULSE 88; RESP 18; TEMP 36.7; O2SAT 97
--- NOTE | 2019-10-28 09:15 | PCM.PN.SRG ---
Patient Problems: Active and Suspected Problems (Last Reviewed 10/02/19 @ 09:44 by Jyotsna Peterson) Biliary dyskinesia (Acute) Subjective: The patient reports that her pain is improved since yesterday. She was having a lot of lower abdominal pain yesterday afternoon which is improving. She has had a few bites of food this morning. She is not having any nausea or vomiting she just does not have an appetite today. - Physical Exam Vitals/I&O's: Vital Signs Temp Pulse Resp BP Pulse Ox 98.1 F 88 18 114/74 97 10/28/19 08:21 10/28/19 08:21 10/28/19 08:21 10/28/19 08:21 10/28/19 08:21 Oxygen Flow Rate (L/min) 3 Oxygen Delivery Method Room Air Weight: 178 lb Body Mass Index (BMI) 32.0 Finger Stick Blood Glucose 129 Intake and Output for Last 24 Hours 10/26/19 10/27/19 10/28/19 23:59 23:59 23:59 Intake Total 2163.125 / 2963.125 2365 / 2365 Output Total 30 / 1580 2300 / 2300 Balance 2133.125 / 1383.125 65 / 65 General: Alert, Oriented x3 Lungs: Normal air movement Abdomen: Soft, Tender Extremities: No clubbing Musculoskeletal: No Muscle Wasting Laboratory Results 10/27/19 09:45: Urine Test Negative 10/27/19 10:03: WBC 8.2, RBC 4.70, Hgb 12.8, Hct 39.9, MCV 84.9, MCH 27.2, MCHC 32.1, RDW Std Deviation 40.5, RDW Coeff of Karon 13.2, Plt Count 303, MPV 9.6 10/27/19 10:15: Blood Type O POSITIVE, Antibody Screen NEGATIVE Current Medications Albuterol Sulfate (Ventolin Aerosols) 2.5 mg INHALATION Q4H PRN PRN PRN Reason: ASTHMA Atenolol (Tenormin (Beta David)) 12.5 mg PO BID PRN PRN PRN Reason: symptoms Lactated Ringer's () 1,000 mls @ 100 mls/hr IV .Q10H GISELA Last Admin: 10/28/19 07:54 Dose: Not Given Documented by: Ketorolac Tromethamine (Toradol (Bkc)) 30 mg IV Q6 [facility] Stop: 11/01/19 18:18 Last Admin: 10/28/19 05:56 Dose: 30 mg Documented by: Lorazepam (Ativan) 0.5 mg PO Q6H PRN PRN PRN Reason: ANXIETY Last Admin: 10/28/19 00:35 Dose: 0.5 mg Documented by: Morphine Sulfate () 4 - 6 mg IV Q4H PRN PRN PRN Reason: Pain Score 6-10/10 Morphine Sulfate () 4 - 6 mg IV Q4H PRN PRN PRN Reason: Pain Score 6-10/10 Last Admin: 10/27/19 19:57 Dose: 4 mg Documented by: Nutritional Formula (Lactose Free) (Ensure Enlive) 120 ml PO 4X/DAY [facility] Ondansetron HCl (Zofran) 4 mg IM Q8H PRN PRN PRN Reason: NAUSEA Oxycodone HCl (Oxyir) 5 - 10 mg PO Q4H PRN PRN PRN Reason: Pain Score 6-10/10 Last Admin: 10/28/19 08:11 Dose: 10 mg Documented by: Pantoprazole Sodium (Protonix) 40 mg PO DAILY [facility] Last Admin: 10/28/19 08:12 Dose: 40 mg Documented by: Sodium Chloride () 10 - 40 ml IV UD PRN PRN Reason: SALINE FLUSH Medical Necessity - Tobacco Use Smoking Status: Never smoker Tobacco Use: Non-smoker Assessment/Plan All Active Problems (Last Reviewed 10/02/19 @ 09:44 by Jyotsna Peterson) Biliary dyskinesia (Acute) History of (Resolved) History of hernia repair (Resolved) Hx of removal of ovary (Resolved) Endometriosis (Acute) h/o lesion removal (Acute) History of back problems (Acute) Arthritis (Acute) Anxiety (Acute) Sleep apnea (Acute) Asthma (Acute) Abdominal pain (Acute) Nausea & vomiting (Acute) Acid reflux (Acute) Hepatic steatosis (Acute) Abdominal pain (Acute) Prolapse of intestine (Acute) Diverticulosis (Acute) Hemorrhoids (Acute) Anal fissure (Acute) Ectopic cardiac beats (Resolved) Sinus tachycardia (Resolved) Symptomatic bradycardia (Resolved) 34-year-old female status post laparoscopic cholecystectomy as well as uterine adhesion takedown and D&C 1. Patient reports that her pain is improving. Her cholecystectomy was uncomplicated and straightforward. She is complaining of lower abdominal pain which is improving. Once her pain is well controlled on oral medication she may be discharged home. Sonny Nova MD Pager: [facility] [address] [place] [address], [address] [place] [phone] Office:
[2019-10-28] MEDS: 0.9% Saline Lock 10 ML Syringe IV (12:48)
[2019-11-13 15:01] LABS: Source Not Provided
[2019-11-15 15:30] LABS: Size <1
== END 2019-10-28 15:04 | disposition home or self-care (01) ==
LOC: SDC 19:23 → MS3 19:23
PROVIDERS: Anesthesiology; Obstetrics & Gynecology; Admitting Provider Surgery; PCP Family Medicine; Referring Provider Surgery; Visit Provider Surgery
PROC: (CPT 47610; principal; 2019-10-27 10:45)
PROC: (CPT 49320; 2019-10-27 10:45)
PROC: 0UDB8ZZ Extraction of Endometrium, Via Natural or Artificial Opening Endoscopic (ICD-10-PCS; CPT 58558; 2019-10-27 10:45)
DX: K81.1 Chronic cholecystitis (principal); Z79.899 Other long term (current) drug therapy; Z11.59 Encounter for screening for other viral diseases; M06.9 Rheumatoid arthritis, unspecified; G47.30 Sleep apnea, unspecified; K21.9 Gastro-esophageal reflux disease without esophagitis; G89.29 Other chronic pain; N73.6 Female pelvic peritoneal adhesions (postinfective); N85.4 Malposition of uterus; D25.9 Leiomyoma of uterus, unspecified; J45.909 Unspecified asthma, uncomplicated
CPT/HCPCS: 00790; 47563; 58558; 58662; 74300; 76000; 81025; 82360; 85027; 86850; 86900; 86901; 87086; 87635; 88300; 88304; 88305; 93005; 94799; 96361; 96374; 96375; 96376; 99218; J7120; A4216; G0378; G0379; J2405; U0003

== ENCOUNTER → 2019-10-30 | Outpatient (CLI) | payer MEDICAID, SELFPAY ==
[2019-10-30 10:02] VITALS: BMI 32.0
== END | disposition home or self-care (01) ==
LOC: LABSPEC 14:50
PROVIDERS: PCP Family Medicine; Visit Provider Obstetrics & Gynecology
DX: R10.2 Pelvic and perineal pain (principal)
CPT/HCPCS: 87086

== ENCOUNTER → 2019-10-31 | Outpatient (CLI) | payer MEDICAID, SELFPAY ==
[2019-10-02 09:44] VITALS: BMI 34.1
[2019-10-30 10:02] VITALS: BMI 32.0
--- NOTE | 2019-10-31 15:43 | US_ITS ---
STUDY: RENAL ULTRASOUND - COMPLETE REASON FOR EXAM: Female, 34 years old. Left flank pain. Gross hematuria. TECHNIQUE: Ultrasound evaluation of the kidneys was performed with real-time and static alejandro-scale imaging. COMPARISON: CT of the abdomen and pelvis, 08/13/2019. FINDINGS: RIGHT KIDNEY: Normal location of the right kidney, which is normal in size. The right kidney measures 10.2 cm. There is a normal cortex of the right kidney. The renal cortex measures 1.2 cm. There is no right renal mass or cyst. There are no right renal calculi. There is no right hydronephrosis. DISTAL RIGHT URETER: There is non-visualization of the distal right ureter. There is no demonstrated right ureterovesical junction calculus. There is no demonstrated right ureteral jet. LEFT KIDNEY: Normal location of the left kidney, which is normal in size. The left kidney measures 10.3 cm. There is a normal cortex of the left kidney. The renal cortex measures 1.7 cm. There is no left renal mass or cyst. There are small echogenic foci consistent with renal calculi. The largest measures 7 mm The lower pole. There is no left hydronephrosis. DISTAL LEFT URETER: There is non-visualization of the distal left ureter. There is no demonstrated left ureterovesical junction calculus. There is no demonstrated left ureteral jet. BLADDER: The poorly distended urinary bladder has a volume of 58 ml. There is a normal wall thickness of the distended urinary bladder. There is no demonstrated mass within the urinary bladder. There are no demonstrated bladder calculi. US/Kidney and Bladder IMPRESSION: 1. Multiple echogenic foci in the left kidney thought to represent small loculi. 2. Normal right kidney. The small calcification seen on CT are not appreciated sonographically. 3. Poorly distended but otherwise normal urinary bladder. Electronically Signed: Juan Antonio Garduno DO at 16:19 EDT Tel [phone], Service support ,
== END | disposition home or self-care (01) ==
PROVIDERS: PCP Family Medicine; Referring Provider Urology; Visit Provider Urology
DX: N20.0 Calculus of kidney (principal); R10.9 Unspecified abdominal pain; R31.9 Hematuria, unspecified; H93.11 Tinnitus, right ear
CPT/HCPCS: 76770

== ENCOUNTER → 2020-04-02 | Outpatient (CLI) | payer MEDICAID, SELFPAY ==
[2020-01-01 14:03] VITALS: BMI 32.2
== END | disposition home or self-care (01) ==
LOC: LABSPEC 13:35
PROVIDERS: PCP Family Medicine; Visit Provider Family Medicine
DX: N32.89 Other specified disorders of bladder (principal); R35.0 Frequency of micturition
CPT/HCPCS: 87086; 87088

== ENCOUNTER → 2020-04-16 17:23 | Outpatient (CLI) | payer MEDICAID, SELFPAY ==
[2020-01-01 14:03] VITALS: BMI 32.2
== END ==
PROVIDERS: PCP Family Medicine; Referring Provider Family Medicine; Visit Provider Family Medicine
DX: Z20.822 Contact with and (suspected) exposure to COVID-19 (principal)
CPT/HCPCS: 87635; C9803; U0003

== ENCOUNTER → 2020-04-22 11:53 | Outpatient (CLI) | payer MEDICAID, SELFPAY ==
[2020-01-01 14:03] VITALS: BMI 32.2
[2020-04-22 15:15] LABS: Absolute Lymphocyte Count 2.68 X10^3/uL (0.83-4.51); Absolute Neutrophil Count 4.9 X10^3/uL (2.0-7.7); Basophil# 0.02 X10^3/uL; Basophil% 0.2 % (0-1); Eosinophil# 0.12 X10^3/uL; Eosinophils% 1.5 % (0-5); Hematocrit 38.3 % (37-47); Hemoglobin 12.1 g/dL (12.0-15.0); Lymphocyte # 2.68 X10^3/ul (4.0); Lymphocyte % 33.1 % (19-41); Mean Corp Hgb Conc 31.6 g/dL (32-36); Mean Corpuscular Hgb 26.9 pg (27.0-32.0); Mean Corpuscular Volume 85.3 fL (81-99); Mean Platelet Vol. 9.5 fl (6.2-12.0); Monocyte# 0.34 X10^3/uL; Monocyte% 4.2 % (0-10); NRBC Flagged by Analyzer 0 % (0-5); Neutrophil # 4.92 X10^3/uL (2.7-7.7); Neutrophil % 60.8 % (47-70); Platelet Count 357 K/mm3 (150-450); RBC Distribution Width CV 13.4 % (11.6-14.6); RBC Distribution Width SD 42.1 fl (35.1-43.9); Red Blood Count 4.49 M/mm3 (4.2-5.4); White Blood Count 8.1 K/mm3 (4.4-11.0)
[2020-04-22 15:17] LABS: Erythrocyte Sedimentation Rate 4 mm/hr (0-30)
[2020-04-22 16:09] LABS: ALB/GLOB Ratio 0.9 RATIO (0.9-2.4); AST(SGOT) 19 U/L (15-37); Alanine Aminotransfer ALT/SGPT 28 U/L (13-56); Albumin, Serum 3.7 g/dL (3.2-5.0); Alkaline Phosphatase 85 U/L (45-117); Anion Gap 7 (5-15); BUN 11 mg/dL (7-18); BUN/Creat Ratio 14.1 RATIO (10-20); Calcium,Total 8.6 mg/dL (8.5-10.1); Chloride 105 mmol/L (98-107); Creatinine, Serum 0.78 mg/dL (0.55-1.02); EST Glomerular Filtration Rate 89 mL/min (>60); Est Glom Filt Rate - Afr Amer 107 mL/min (>60); Globulin 3.9 g/dL (2.2-4.2); Glucose 88 mg/dL (74-106); Lipase 144 U/L (73-393); Potassium 3.8 mmol/L (3.5-5.1); Protein, Total 7.6 g/dL (6.4-8.2); Sodium Level 139 mmol/L (136-145)
[2020-04-23 08:34] LABS: PTHIN 52.4 pg/mL (18.4-80.1)
[2020-04-24 16:10] LABS: Endomysial Antibody IgA Negative (Negative); Immunoglobulin A 235 mg/dL (87-352)
[2020-04-24 21:01] LABS: H.Pylori Breath Test Negative (Negative); t-Transglutaminase IgA <2 U/mL (0-3)
== END ==
PROVIDERS: PCP Family Medicine; Visit Provider Family Medicine
DX: N20.0 Calculus of kidney (principal); R10.9 Unspecified abdominal pain; R10.13 Epigastric pain
CPT/HCPCS: 36415; 80053; 82784; 83013; 83516; 83690; 83970; 85025; 85652; 86140; 86255

== ENCOUNTER 2020-04-27 16:59 | Emergency (ER) | payer MEDICAID, SELFPAY ==
[2020-01-01 14:03] VITALS: BMI 32.2
[2020-04-27 16:59] VITALS: BP 134/82; PULSE 77; RESP 16; TEMP 36.9; O2SAT 100; BMI 31.1
--- NOTE | 2020-04-27 17:16 | ED.DCSUM_ITS ---
History of Present Illness Chief Complaint: Flank Pain Informant: Patient Narrative: 34-year-old female presenting with left-sided flank pain and abdominal pain. She states that kind of feels like her previous kidney stone. She states she said to this month. She states is a little atypical because it radiates around to her stomach. Patient states she has had multiple episodes of diarrhea for most of the month. She has followed up with her PCP and it sounds like she did a urease breath test as well given she has had some stomach pain and nausea. Patient currently denies any hematuria or dysuria although she does have urinary frequency. Prior similar symptoms: Yes Recent Illness/Hospitalization: No Past Medical History - Allergies and Home Meds Allergies/Adverse Reactions: Allergies acetaminophen [From Vicodin] Allergy (Severe, Verified 04/27/20 17:01) Itching cyclobenzaprine [From Flexeril] Allergy (Severe, Verified 04/27/20 17:01) Mental status change hydrocodone [From Vicodin] Allergy (Severe, Verified 04/27/20 17:01) Itching latex Allergy (Mild, Verified 04/27/20 17:01) Swelling cephalexin monohydrate [From Keflex] Allergy (Verified 04/27/20 17:01) Anaphylaxis eucalyptus Adverse Reaction (Severe, Verified 04/27/20 17:01) tachycardia, close airway NSAIDS (Non-Steroidal Anti-Inflamma Adverse Reaction (Severe, Verified 04/27/20 17:01) GI upset tizanidine Adverse Reaction (Severe, Verified 04/27/20 17:01) Low HR ciprofloxacin [From Cipro] Adverse Reaction (Verified 04/27/20 17:01) diarrhea, nausea, tachycardia doxycycline Adverse Reaction (Verified 04/27/20 17:01) Diarrhea Primary Care Physician: Anant Curran DO [Primary Care Provider] - Prior records reviewed: Yes Past Medical History: - - GERD, kidney stones, endometriosis Surgical History: - - History of left fallopian tube removal. Hernia, Lives: Alone Smoking Status: Never smoker Alcohol: None Drugs: None Review of Systems General: Reports: Malaise. Denies: Chills, Fever, Sweats Eyes: Denies: Visual changes - bilaterally, Diplopia ENT: Denies: Rhinorrhea, Sore throat Cardiovascular: Denies: Chest pain, Palpitations Respiratory: Denies: Dyspnea, Cough, Dyspnea on exertion Gastrointestinal: Reports: Abdominal pain, Nausea, Vomiting, Diarrhea. Denies: Melena, Hematochezia Genitourinary: Reports: Frequency. Denies: Dysuria, Hematuria Musculoskeletal: Denies: Myalgias, Arthralgias Skin: Denies: Rash, Abscess Neurological: Denies: Headache, Weakness Psych: Denies: Depression, Anxiety Physical Exam Vital Signs/Narrative: Vital Signs Temp Pulse Resp BP Pulse Ox 04/27/20 16:59 98.5 F 77 16 134/82 H 100 Inital Vital Signs reviewed: Yes General: Well nourished, Well developed Head: Normocephalic Eyes: Perrl, EOMI. Negative for: Pale conjunctiva ENT: Moist mucous membranes, No rhinorrhea Cardiovascular: Regular rate, Regular rhythm Respiratory: No distress, CTA bilaterally Abdomen: Soft, Nontender Diagnostic/Tx/Re-eval Clinical Impression(s) from Imaging Studies Abdomen/Pelvis CT 04/27/20 18:05 IMPRESSION: Bilateral nephrolithiasis without hydronephrosis. Electronically Signed: Brandon Beavers MD ([place]) at 18:38 EST , Service support , Laboratory Data 04/27/20 04/27/20 04/27/20 17:10 17:34 17:34 WBC 9.6 RBC 4.45 Hgb 12.0 Hct 37.8 MCV 84.9 MCH 27.0 MCHC 31.7 L RDW Std Deviation 41.5 RDW Coeff of Karon 13.2 Plt Count 338 MPV 9.0 Immature Gran % (Auto) 0.100 Neut % (Auto) 61.2 Lymph % (Auto) 31.0 [place] % (Auto) 6.0 Eos % (Auto) 1.4 Baso % (Auto) 0.3 Absolute Neuts (auto) 5.9 Absolute Lymphs (auto) 2.96 Nucleated RBC % 0 Sodium 140 Potassium 3.6 Chloride 105 Carbon Dioxide 29.0 Anion Gap 6 BUN 10 Creatinine 0.82 Estim Creat Clear Calc 75.01 Est GFR (MDRD) Af Amer 101 Est GFR (MDRD) Non-Af 84 BUN/Creatinine Ratio 12.2 Glucose 100 Calcium 8.9 Total Bilirubin 0.20 AST 18 ALT 28 Alkaline Phosphatase 83 Total Protein 7.5 Albumin 3.5 Globulin 4.0 Albumin/Globulin Ratio 0.9 Lipase 195 Urine Color Yellow Urine Clarity Sl. Cloudy Urine pH 7.0 Ur Specific [place] 1.010 Urine Protein Negative Urine Glucose (UA) Normal Urine Ketones Negative Urine Occult Blood 10 H Urine Nitrite Negative Urine Bilirubin Negative Urine Urobilinogen Normal Ur Leukocyte Esterase Negative Urine RBC 0-5 SEEN Urine WBC 0 SEEN Ur Squamous Epith Cells 0-5 SEEN Amorphous Sediment 1+ PHOS Urine Bacteria 0 SEEN Urine Mucus 0 SEEN - Medical Decision Making 34-year-old female presenting with left flank pain. She was concerned it was a stone however has a different pattern to it. Patient's urinalysis does show a small amount of blood. Lab work is all within normal limits. Patient CT abdomen pelvis without contrast does not show any new pathology. Patient is counseled of this. I recommended that she follow-up with her primary care doctor with referral to GI. Patient stable for discharge at this time. Impression: 1. Abdominal pain ED Disposition - Plan for ED Patient: Disposition: Home or Assisted Living Instructions: ED Abdominal Pain Unkn Cause Fem Prescriptions: Ondansetron [Zofran Odt] 4 mg PO Q8H PRN PRN #10 tab PRN Reason: Nausea Transmission Status: Pending to [facility] Referrals: Anant Curran DO [Primary Care Provider] - Alpa León MD [STAFF PHYSICIAN] -
[2020-04-27 17:21] LABS: Bacteria 0 SEEN /hpf (None Seen); Mucous, Urine 0 SEEN /hpf (<or=2+); White Blood Cells 0 SEEN /hpf (0-5)
[2020-04-27 17:27] LABS: Color, Urine Yellow (Yellow); Glucose, Dipstick Normal (Normal); Ketone-Dipstick Negative (Negative); Leukocyte Esterase-Dipstick Negative /ul (Negative); Nitrite-Dipstick Negative (Negative); Occult Blood-Urine 10 /ul (Negative); Protein-Dipstick Negative (Negative); Urine Bilirubin Dipstick Negative (Negative); Urine Clarity Sl. Cloudy (Clear); Urine Urobilinogen Normal (Normal)
[2020-04-27] MEDS: Morphine 4 MG/ML Syringe IV ×2 (17:31→18:27)
[2020-04-27] MEDS: Ondansetron 4 MG/2 ML Vial IV (17:31)
[2020-04-27 17:35] LABS: Amorphous Sediment 1+ PHOS; Red Blood Cells-Urine 0-5 SEEN /hpf (0-5); Squamous Epithelial Cells - UA 0-5 SEEN /hpf (5-10)
[2020-04-27 17:51] LABS: Absolute Lymphocyte Count 2.96 X10^3/uL (0.83-4.51); Absolute Neutrophil Count 5.9 X10^3/uL (2.0-7.7); Basophil# 0.03 X10^3/uL; Basophil% 0.3 % (0-1); Eosinophil# 0.13 X10^3/uL; Eosinophils% 1.4 % (0-5); Hematocrit 37.8 % (37-47); Lymphocyte # 2.96 X10^3/ul (4.0); Mean Corp Hgb Conc 31.7 g/dL (32-36); Mean Corpuscular Volume 84.9 fL (81-99); Monocyte# 0.57 X10^3/uL; NRBC Flagged by Analyzer 0 % (0-5); Neutrophil # 5.85 X10^3/uL (2.7-7.7); Neutrophil % 61.2 % (47-70); Platelet Count 338 K/mm3 (150-450); RBC Distribution Width CV 13.2 % (11.6-14.6); RBC Distribution Width SD 41.5 fl (35.1-43.9); Red Blood Count 4.45 M/mm3 (4.2-5.4); White Blood Count 9.6 K/mm3 (4.4-11.0)
[2020-04-27 18:04] LABS: ALB/GLOB Ratio 0.9 RATIO (0.9-2.4); AST(SGOT) 18 U/L (15-37); Alanine Aminotransfer ALT/SGPT 28 U/L (13-56); Albumin, Serum 3.5 g/dL (3.2-5.0); Alkaline Phosphatase 83 U/L (45-117); Anion Gap 6 (5-15); BUN 10 mg/dL (7-18); BUN/Creat Ratio 12.2 RATIO (10-20); Calcium,Total 8.9 mg/dL (8.5-10.1); Chloride 105 mmol/L (98-107); Creatinine, Serum 0.82 mg/dL (0.55-1.02); EST Glomerular Filtration Rate 84 mL/min (>60); Est Glom Filt Rate - Afr Amer 101 mL/min (>60); Estimated Creatinine Clearance 75.01 ml/min; Glucose 100 mg/dL (74-106); Lipase 195 U/L (73-393); Potassium 3.6 mmol/L (3.5-5.1); Protein, Total 7.5 g/dL (6.4-8.2); Sodium Level 140 mmol/L (136-145)
--- NOTE | 2020-04-27 18:05 | CT_ITS ---
STUDY: CT ABDOMEN AND PELVIS WITHOUT CONTRAST REASON FOR EXAM: Female, 34 years old. left flank pain, Hx kidney stones, , inguinal hernia, lithotripsy, unilateral salpingoophrectomy RADIATION DOSAGE (If Supplied By Facility): CTDIvol = ( 14.10 ) mGy, DLP = ( 669.07 ) mGycm TECHNIQUE: Transaxial images were obtained from the dome of the diaphragm to the symphysis pubis without oral contrast, and without intravenous contrast. Sagittal and coronal images were reconstructed. Individualized dose optimization techniques were used for this CT. COMPARISON: 08/13/2019 FINDINGS: The visualized lung bases are unremarkable. The visualized portions of the heart are within normal limits. Normal liver. There are surgical clips in the gallbladder fossa consistent with a prior cholecystectomy. Normal spleen. Normal pancreas. Normal bilateral adrenal glands. There are punctate calculi in the bilateral kidneys without hydronephrosis or ureteral calculi. Normal visualized stomach. Normal small intestine. Normal colon. The appendix is visualized and appears normal. Normal abdominal aorta. Normal inferior vena cava. Normal retroperitoneum. Normal urinary bladder. Normal visualized uterus. Right ovarian follicle or small cyst stable. Normal abdominal wall. Normal osseous structures. CT/Abdomen/Pelvis without Cont IMPRESSION: Bilateral nephrolithiasis without hydronephrosis. Electronically Signed: Brandon Beavers MD ([place]) at 18:38 EST , Service support ,
[2020-04-27 20:11] VITALS: BP 130/83; PULSE 74; RESP 16; O2SAT 100
== END 2020-04-27 20:18 | disposition home or self-care (01) ==
PROVIDERS: Emergency Provider Student in an Organized Health Care Education/Training Program; PCP Family Medicine
DX: R10.9 Unspecified abdominal pain (principal); K21.9 Gastro-esophageal reflux disease without esophagitis; Z87.442 Personal history of urinary calculi
CPT/HCPCS: 74176; 80053; 81001; 83690; 85025; 96374; 96375; 96376; 99282; A4216; J2405

== ENCOUNTER → 2020-05-21 | Outpatient (CLI) | payer MEDICAID, SELFPAY ==
[2020-05-21 10:28] VITALS: BMI 32.3
[2020-05-23 07:07] LABS: Chlamydia By Nucleic Acid AMP Negative (Negative)
[2020-05-23 08:43] LABS: Gonococcus By Nucleic Acid AMP Negative (Negative)
== END | disposition home or self-care (01) ==
LOC: LABSPEC 12:11
PROVIDERS: PCP Family Medicine; Referring Provider Nurse Practitioner Women's Health; Visit Provider Nurse Practitioner Women's Health
DX: N89.8 Other specified noninflammatory disorders of vagina (principal)
CPT/HCPCS: 87070; 87205; 87491; 87591

== ENCOUNTER 2020-07-03 15:17 | Outpatient (RCR) | payer MEDICAID, SELFPAY ==
[2020-07-08 13:53] VITALS: BMI 32.7
== END 2020-09-03 23:59 ==
LOC: IMMUN 15:17
PROVIDERS: PCP Family Medicine; Referring Provider Family Medicine; Visit Provider Family Medicine
DX: Z23 Encounter for immunization (principal)

== ENCOUNTER → 2020-07-16 11:53 | Outpatient (CLI) | payer MEDICAID, SELFPAY ==
[2020-07-08 13:53] VITALS: BMI 32.7
[2020-07-16 15:49] LABS: Absolute Lymphocyte Count 2.81 X10^3/uL (0.83-4.51); Absolute Neutrophil Count 5.1 X10^3/uL (2.0-7.7); Basophil# 0.03 X10^3/uL; Basophil% 0.4 % (0-1); Eosinophil# 0.11 X10^3/uL; Eosinophils% 1.3 % (0-5); Hematocrit 40.5 % (37-47); Hemoglobin 12.6 g/dL (12.0-15.0); Lymphocyte # 2.81 X10^3/ul (0.83-4.51); Lymphocyte % 33.1 % (19-41); Mean Corp Hgb Conc 31.1 g/dL (32-36); Mean Corpuscular Volume 86.9 fL (81-99); Monocyte# 0.42 X10^3/uL; Monocyte% 4.9 % (0-10); NRBC Flagged by Analyzer 0 % (0-5); Neutrophil % 59.9 % (47-70); Platelet Count 338 K/mm3 (150-450); RBC Distribution Width CV 13.3 % (11.6-14.6); RBC Distribution Width SD 41.9 fl (35.1-43.9); Red Blood Count 4.66 M/mm3 (4.2-5.4); White Blood Count 8.5 K/mm3 (4.4-11.0)
[2020-07-16 16:05] LABS: Erythrocyte Sedimentation Rate 23 mm/hr (0-30)
[2020-07-16 16:19] LABS: ALB/GLOB Ratio 0.9 RATIO (0.9-2.4); AST(SGOT) 17 U/L (15-37); Alanine Aminotransfer ALT/SGPT 26 U/L (13-56); Albumin, Serum 3.8 g/dL (3.2-5.0); Alkaline Phosphatase 85 U/L (45-117); Anion Gap 5 (5-15); BUN 7 mg/dL (7-18); BUN/Creat Ratio 9.1 RATIO (10-20); Calcium,Total 9.2 mg/dL (8.5-10.1); Chloride 104 mmol/L (98-107); Creatinine, Serum 0.77 mg/dL (0.55-1.02); EST Glomerular Filtration Rate 90 mL/min (>60); Est Glom Filt Rate - Afr Amer 109 mL/min (>60); Globulin 4.3 g/dL (2.2-4.2); Glucose 86 mg/dL (74-106); Lipase 172 U/L (73-393); Potassium 3.8 mmol/L (3.5-5.1); Protein, Total 8.1 g/dL (6.4-8.2); Sodium Level 138 mmol/L (136-145)
== END ==
PROVIDERS: PCP Family Medicine; Referring Provider Family Medicine; Visit Provider Family Medicine
DX: R10.9 Unspecified abdominal pain (principal)
CPT/HCPCS: 36415; 80053; 83690; 85025; 85652; 86140

== ENCOUNTER → 2020-07-22 11:48 | Outpatient (CLI) | payer MEDICAID, SELFPAY ==
[2020-07-08 13:53] VITALS: BMI 32.7
[2020-07-22 15:19] LABS: Color, Urine Yellow (Yellow); Glucose, Dipstick Normal (Normal); Ketone-Dipstick 5 mg/dl (Negative); Leukocyte Esterase-Dipstick 25 /ul (Negative); Nitrite-Dipstick Negative (Negative); Occult Blood-Urine 25 /ul (Negative); Protein-Dipstick 15 mg/dl (Negative); Urine Bilirubin Dipstick Negative (Negative); Urine Clarity Clear (Clear); Urine Urobilinogen Normal (Normal)
== END ==
LOC: LABSPEC 11:49 → MTLAB 12:00
PROVIDERS: PCP Family Medicine; Referring Provider Family Medicine; Visit Provider Family Medicine
DX: R10.9 Unspecified abdominal pain (principal)
CPT/HCPCS: 81002

== ENCOUNTER 2020-07-22 22:02 | Emergency (ER) | payer MEDICAID, SELFPAY ==
[2020-07-22 22:04] VITALS: BP 137/80; PULSE 70; RESP 16; TEMP 36.1; O2SAT 100; BMI 32.0
[2020-07-22 22:06] VITALS: BP 137/80; PULSE 70; RESP 16; TEMP 36.1; O2SAT 100
[2020-07-22 23:06] VITALS: BP 130/74; PULSE 70; RESP 18; TEMP 36.6; O2SAT 97
--- NOTE | 2020-07-22 23:12 | CT_ITS ---
STUDY: CT ABDOMEN AND PELVIS WITH CONTRAST REASON FOR EXAM: Female, 34 years old. Left abd pain, nvd RADIATION DOSAGE (If Supplied By Facility): CTDIvol = ( 16.34 ) mGy, DLP = ( 976.94 ) mGycm TECHNIQUE: Transaxial images were obtained from the dome of the diaphragm to the symphysis pubis without oral contrast. IV 100mL [id number]-[id number] was administered. Sagittal and coronal images were reconstructed. Individualized dose optimization techniques were used for this CT. COMPARISON: April 27, 2020 CT abdomen and pelvis, February 25, 2019 CT scan abdomen and pelvis FINDINGS: The visualized lung bases are unremarkable. The visualized portions of the heart are within normal limits. There is decreased attenuation of the liver consistent with steatosis. There is non-visualization of the gallbladder, which may be secondary to either contraction or a prior cholecystectomy. Normal spleen. Normal pancreas. Normal bilateral adrenal glands. There is a punctate stone right kidney there is no hydronephrosis. There is a small cyst upper pole right kidney measuring 5.7 mm. The punctate stone seen on prior study is not well visualized with contrast. There is a punctate stone left kidney. There is no visualized hydronephrosis. Normal visualized stomach. Normal small intestine. There is abundant stool in the colon. The appendix is visualized and appears normal. Well-seen coronal view 63. Normal abdominal aorta. Normal inferior vena cava. Normal retroperitoneum. Normal urinary bladder. Endometrium appears mildly prominent. There is a mildly lobulated contour of the uterus and may represent small fibroids. There is a small right ovarian follicle that may measure 1 cm. There is a small umbilical hernia containing fat. There are diffuse degenerative changes of the visualized lumbar spine. CT/Abdomen/Pelvis W IV Cont ONLY IMPRESSION: Mild hepatic steatosis. Nonvisualization of the gallbladder which is likely been surgically removed. Subtle stable 5 .7 mm cyst right kidney. Punctate stones both kidneys no hydronephrosis. Constipation. Mildly lobulated appearing contour of the uterus which may represent small fibroids. Small right ovarian cyst or follicle. Electronically Signed: Judy Bermudez MD at 0:46 EDT Tel , Service support ,
[2020-07-22 23:26] LABS: Absolute Lymphocyte Count 5.46 X10^3/uL (0.83-4.51); Basophil# 0.04 X10^3/uL; Basophil% 0.2 % (0-1); Eosinophil# 0.09 X10^3/uL; Eosinophils% 0.5 % (0-5); Hematocrit 39.2 % (37-47); Hemoglobin 12.6 g/dL (12.0-15.0); Lymphocyte # 5.46 X10^3/ul (0.83-4.51); Lymphocyte % 32.6 % (19-41); Mean Corp Hgb Conc 32.1 g/dL (32-36); Mean Corpuscular Hgb 27.3 pg (27.0-32.0); Mean Corpuscular Volume 84.8 fL (81-99); Mean Platelet Vol. 9.2 fl (6.2-12.0); Monocyte% 6.6 % (0-10); NRBC Flagged by Analyzer 0 % (0-5); Neutrophil # 9.96 X10^3/uL (2.7-7.7); Neutrophil % 59.4 % (47-70); POSITIVE DIFFERENTIAL YES; POSITIVE MORPHOLOGY YES; Platelet Count 359 K/mm3 (150-450); RBC Distribution Width CV 13.3 % (11.6-14.6); RBC Distribution Width SD 41.5 fl (35.1-43.9); Red Blood Count 4.62 M/mm3 (4.2-5.4); White Blood Count 16.8 K/mm3 (4.4-11.0)
[2020-07-22 23:28] LABS: Differential Indicated SCAN CRITERIA MET
[2020-07-22 23:29] LABS: Internal QC Validated? YES +Cl - CLEAR BKGD; Pregnancy, Serum, hCG Quali. NEGATIVE Negative
[2020-07-22 23:33] LABS: Bacteria 0 SEEN /hpf (None Seen); Mucous, Urine 0 SEEN /hpf (<or=2+)
[2020-07-22 23:37] LABS: Color, Urine Yellow (Yellow); Glucose, Dipstick Normal (Normal); Ketone-Dipstick Negative (Negative); Leukocyte Esterase-Dipstick Negative /ul (Negative); Nitrite-Dipstick Negative (Negative); Occult Blood-Urine 10 /ul (Negative); Protein-Dipstick Negative (Negative); Specific Gravity, Urine 1.005 (1.002-1.030); Urine Bilirubin Dipstick Negative (Negative); Urine Clarity Clear (Clear); Urine Urobilinogen Normal (Normal)
[2020-07-22 23:37] LABS: ALB/GLOB Ratio 0.8 RATIO (0.9-2.4); AST(SGOT) 9 U/L (15-37); Alanine Aminotransfer ALT/SGPT 20 U/L (13-56); Albumin, Serum 3.7 g/dL (3.2-5.0); Alkaline Phosphatase 74 U/L (45-117); Anion Gap 8 (5-15); BUN 16 mg/dL (7-18); BUN/Creat Ratio 16.4 RATIO (10-20); Chloride 102 mmol/L (98-107); Creatinine, Serum 0.98 mg/dL (0.55-1.02); EST Glomerular Filtration Rate 68 mL/min (>60); Est Glom Filt Rate - Afr Amer 83 mL/min (>60); Estimated Creatinine Clearance 62.77 ml/min; Globulin 4.5 g/dL (2.2-4.2); Glucose 97 mg/dL (74-106); Lipase 211 U/L (73-393); Protein, Total 8.2 g/dL (6.4-8.2); Sodium Level 137 mmol/L (136-145)
[2020-07-22 23:56] LABS: Red Blood Cells-Urine 0-5 SEEN /hpf (0-5); Squamous Epithelial Cells - UA 0-5 SEEN /hpf (5-10); White Blood Cells 0-5 SEEN /hpf (0-5)
[2020-07-23] VITALS: BP 114/70; PULSE 69; RESP 18; TEMP 36.4; O2SAT 97
[2020-07-23] MEDS: Metoclopramide 10 MG/2 ML Vial IV (00:14)
[2020-07-23] MEDS: Morphine 4 MG/ML Syringe IV (00:14)
[2020-07-23] MEDS: 0.9% Normal Saline 1,000 ML 1000 ML IV (00:14)
[2020-07-23 00:15] LABS: Differential Comment SCANNED
[2020-07-23 00:16] LABS: Atypical Lymphocyte 1+ %
[2020-07-23] MEDS: Potassium Chloride Oral Tablet 20 MEQ 40 MEQ PO (00:41)
--- NOTE | 2020-07-23 00:50 | ED.DCSUM_ITS ---
- ER Visit Summary Date of Service: 07/23/20 Chief Complaint: Pain History of Present Illness: The patient is a 34 F with left side abdominal pain for 2 weeks. The pain is in her left flank and left upper abdomen. Worse with food. Associate with nausea vomiting. She is currently being treated with dexamethasone and Zofran as well as Bactrim for possible UTI. History of kidney stones, PCOS. Physical Examination: Afebrile and vital signs unremarkable. Heart regular. Lungs clear. Abdomen soft and nontender. CVA is tender but on the right side. Otherwise exam is unremarkable. Test Results: White count 16.8, likely from steroid use. Potassium 3.0, re placed. Urinalysis unremarkable. test negative. CT showed chronic and postoperative changes, hepatic steatosis, uterine fibroids, constipation. Emergency Department Course and Treatment: Patient was treated with fluids, pain medicine, nausea medicine. Treated with potassium replacement. Her work-up here is reassuring and unremarkable. She will follow-up with her doctor. Treatment Plan: As above Disposition: Discharge Impression: Left side abdominal pain, hypokalemia This note was generated with [employer] dictation software. It may contain incorrect words, spelling, and punctuation that were not noted in review of the chart prior to signing ED Disposition - Plan for ED Patient: Referrals: Anant Curran DO [Primary Care Provider] -
--- NOTE | 2020-07-23 00:52 | ED.DEP ---
ED Disposition - Plan for ED Patient: Instructions: Abdominal Pain Prescriptions: Dicyclomine HCl [Bentyl] 20 mg PO TIDAC #20 capsule Prescription Printed Referrals: Anant Curran DO [Primary Care Provider] -
== END 2020-07-23 00:55 | disposition home or self-care (01) ==
PROVIDERS: Emergency Provider Emergency Medicine; PCP Family Medicine
DX: R10.9 Unspecified abdominal pain (principal); E87.6 Hypokalemia; I10 Essential (primary) hypertension; Z79.899 Other long term (current) drug therapy
CPT/HCPCS: 74177; 80053; 81001; 81002; 83690; 84703; 85025; 96361; 96374; 96375; 99283; Q9967; A4216

== ENCOUNTER 2020-07-25 04:36 | Emergency (ER) | payer MEDICAID, SELFPAY ==
[2020-07-25 04:37] VITALS: BP 144/98; PULSE 84; RESP 16; TEMP 36.6; O2SAT 100; BMI 33.2
--- NOTE | 2020-07-25 05:32 | EDS_ITS ---
HPI HPI - GI History of Present Illness Chief Complaint: Abd Pain Informant: patient Abdominal Pain/Flank Pain Onset: Weeks (2) Context: Gradual Onset Timing: Waxes and wanes Quality: Aching Location: Diffuse Current Severity: Severe Maximum Severity: Severe Worsened by: Food (about 30 min after, or so) Relieved by: - (Sometimes transiently improved by urinating. No improvement after bowel movement.) Nausea/Vomiting/Emesis GI Symptom: Positive for Nausea and Vomiting Onset: Yesterday Quality: Positive for Nonbilious; Negative for Blood streaks and Coffee ground Severity: Mild Diarrhea/Melena/Hematochezia GI Symptom: Positive for Diarrhea (2 wks ago for about a week - now resolved); Negative for Melena and Hematochezia Stool Quality: Positive for Mucous Associated Symptoms Associated Symptoms: Negative for Dysuria, Frequency, Hematuria and Urgency Narrative Narrative: Patient was seen here 2 days ago for similar complaints, presenting with diffuse abdominal pain, occasional vomiting but mostly nausea, mucus in stools, occasional tenesmus, she had diarrhea about 2 weeks ago, it was fairly aggressive with mucus and lasted for about a week until her doctor put her on dexamethasone for 1 week which she finished around 3 days ago and that stopped the diarrhea fairly abruptly. She was not having much in way of pain then, but started having some lower midline pelvic pain that is similar to kidney stone pain that she has had in the past, she states she has had numerous kidney stones that start with pain there and then ended up in her flank, so a urinalysis was done in the office, showed some infection indicators and she was placed on Bactrim for 3 days which she just finished. She has no urinary symptoms. The pain has become diffuse. When she was seen in the ED a couple days ago, her CT was fairly unremarkable and showed constipation, this was treated empirically with magnesium citrate followed by MiraLAX after she had a virtual appointment with a machine baster with [facility] yesterday, subsequently she had to fairly small but adequate bowel movements, this resulted in no improvement in symptoms. She is scheduled for EGD and colonoscopy August 12. She was told if worse to go to the emergency department. [facility] Medical History (Updated 07/25/20 @ 07:[address] Lazarus Lou MD) Abdominal pain Abdominal pain Acid reflux Anal fissure Ankylosing spondylitis Anxiety Arthritis Asthma Diarrhea Diverticulosis Ectopic cardiac beats Endometriosis Endometriosis Exercise-induced asthma Fatigue Gestational diabetes h/o lesion removal Hematochezia Hemorrhoids Hepatic steatosis History of back problems Hypertension lysis of adensions (~09/2019) Mitral regurgitation Nausea & vomiting Ovarian cyst PCOS (polycystic ovarian syndrome) Prolapse of intestine Sinus tachycardia Sinus tachycardia Sleep apnea Symptomatic bradycardia Symptomatic bradycardia Tachycardia Home Medications multivitamin 1 tab PO DAILY 12/13/17 [History Last Taken 09/17/18] cetirizine 10 mg tablet 10 mg PO DAILY 09/05/19 [History Last Taken Unknown] hydrocortisone 2.5 % topical ointment 1 applic TOPICAL BID #28.35 g 09/05/19 [Rx Last Taken Unknown] albuterol sulfate 1 - 2 puff INHALATION Q6H PRN PRN 10/19/19 [History Last Taken Unknown] belladonna alkaloids-opium 16.2 mg-30 mg rectal suppository 1 supp RC TID PRN #12 ea 01/04/20 [Rx Last Taken Unknown] ondansetron 4 mg PO Q8H PRN PRN #10 tab 04/27/20 [Rx Last Taken Unknown] pantoprazole 40 mg tablet,delayed release See Rx Instructions .ROUTE .COMPLEX #30 tablet 07/02/20 [Rx Last Taken Unknown] atenolol 25 mg tablet 25 mg PO DAILY PRN tablet 07/08/20 [History Last Taken Unknown] cholecalciferol (vitamin D3) 1,250 mcg (50,000 unit) capsule 50,000 unit PO QWEEK cap 07/08/20 [History Last Taken Unknown] cholestyramine-aspartame 4 gram oral powder 1 each PO QAC gm 07/08/20 [History Last Taken Unknown] sulfamethoxazole-trimethoprim 1 tablet PO BID 07/22/20 [History Last Taken Unknown] dicyclomine 20 mg PO Q6H PRN #20 capsule 07/25/20 [Rx Last Taken Unknown] metoclopramide HCl [Reglan] 10 mg PO Q6H PRN #20 tab 07/25/20 [Rx Last Taken Unknown] simethicone 125 mg PO TID PRN #20 tab 07/25/20 [Rx Last Taken Unknown] tramadol 50 mg PO Q4H PRN PRN #10 tab 07/25/20 [Rx Last Taken Unknown] Allergy/AdvReac Type Severity Reaction Status Date / Time acetaminophen [From Vicodin] Allergy Severe Itching Verified 07/25/20 04:42 cyclobenzaprine Allergy Severe Mental Verified 07/25/20 04:42 [From Flexeril] status change hydrocodone [From Vicodin] Allergy Severe Itching Verified 07/25/20 04:42 latex Allergy Mild Swelling Verified 07/25/20 04:42 cephalexin monohydrate Allergy Anaphylaxis Verified 07/25/20 04:42 [From Keflex] eucalyptus AdvReac Severe tachycardia, Verified 07/25/20 04:42 close airway NSAIDS (Non-Steroidal AdvReac Severe GI upset Verified 07/25/20 04:42 Anti-Inflamma tizanidine AdvReac Severe Low HR Verified 07/25/20 04:42 ciprofloxacin [From Cipro] AdvReac diarrhea, Verified 07/25/20 04:42 nausea, tachycardia doxycycline AdvReac Diarrhea Verified 07/22/20 22:03 Family History Mother Heart disease Father Heart disease Diabetes Surgical History (Updated 07/25/20 @ 04:40 by Ora Spann) H/O cystoscopy (~09/2019) H/O dilation and curettage (~09/2019) History of History of cholecystectomy (~09/2019) History of hernia repair Hx laparoscopic cholecystectomy (~09/2019) Hx of removal of ovary Social History (Updated 07/08/20 @ 15:18 by Travis Estes NURSING HOME DIRECTOR, NURSING HOME DIRECTOR-C) Smoking Status: Never smoker alcohol intake: never substance use type: does not use caffeine: No what type of physical activity do you participate in: walking frequency: 5-6 times per week seatbelt use: always do you feel safe at home: Yes additional social history: Single- Currently unemployed ROS ROS ED Constitutional Constitutional ED: Denies chills or fever(s) Eyes Eyes: Denies change in vision or diplopia ENT ENT ED: Denies rhinorrhea or sore throat Cardiovascular Cardiovascular: Denies chest pain or palpitations Respiratory/Chest Respiratory/Chest: Denies cough or dyspnea Gastrointestinal Gastrointestinal: Reports abdominal pain, constipation, diarrhea, nausea, vomiting and other Details: Bloating/distention, which was not present 2 days ago ; Denies melena Genitourinary Genitourinary ED: Denies dysuria or hematuria Musculoskeletal Musculoskeletal: Denies back pain or neck pain Integumentary Denies abscess or rash Neurologic Neurologic: Denies headache(s), paresthesias or weakness Psychiatric Psychiatric: Denies anxiety or suicidal thoughts EXAM Physical Exam Const Vital Signs: 07/25/20 04:37 Temperature 97.9 F Temperature Source Temporal Pulse Rate 84 Respiratory Rate 16 Blood Pressure 144/98 H Blood Pressure Mean 113 Pulse Ox 100 Oxygen Delivery Method Room Air Positive well nourished and well developed General Appearance ED: well developed and NAD HEENT Reports moist mucous membranes normocephalic and atraumatic Eyes PERRL and EOMs intact bilaterally Neck full ROM and supple Resp normal respiratory effort and clear to auscultation bilaterally Cardio regular rate, regular rhythm and no murmurs GI Inspection: abdominal distention Auscultation: normoactive bowel sounds Palpation: soft and tender epigastric, RLQ, LUQ and suprapubic; Negative for guarding or rebound tenderness present Back/Spine no CVA tenderness General Back: other FROM Extremity normal to inspection General Extremety ED: Negative for edema, pulses abnormal or tenderness General Extremity: Negative for edema or pulses abnormal Neuro oriented x3, CN's II-XII intact bilaterally and no sensory deficits noted Sensorium / Orientation: awake and alert Motor Exam: strength 5/5 throughout Skin no rashes or lesions noted and no wounds MDM MDM MDM Narrative Medical decision making narrative: I repeated the patient's labs and urinalysis, her white blood count was 16.8 and it is down to 12.1 now with no leftward shift. It is certainly possible and likely her initial leukocytosis was related to demargination from steroids, which she just recently finished. She is having urinary urgency while in the department, she does urinate when she tries to go and without dysuria. She states it feels like a kidney stone. Her CT from 2 days ago showed a punctate stone in each of her kidneys but no hydroureter or h ydronephrosis. It was an IV contrasted study, so it is certainly possible that she has a UVJ stone that is not causing hydronephrosis and giving her some of the symptoms, but I do not think that is what is causing her diffuse abdominal pain and mucousy diarrhea that she had. Given the history and although it was stated on her CT scan, I do not think that constipation is causing her symptoms. My concern is that she may have colitis. (To further complicate the matter, all of this started shortly after she received her second dose of the Pfizer COVID- 19 vaccine.) Fortunately, she is already scheduled for EGD and colonoscopy although it is 2.5 weeks away. She was treated here with morphine, Toradol, dicyclomine, and Reglan. She feels much better on reevaluation and is still somewhat bloated. Will place her on Reglan, dicyclomine, and simethicone for use at home, as well as a few tramadol as needed, recommend a clear liquid diet for the meantime, and to try to follow-up as soon as she is able. She is comfortable with this overall plan. Lab Data Attestation: I reviewed the patient's lab results. Labs: Laboratory Results - last 24 hr 07/25/20 07/25/20 07/25/20 04:40 04:40 04:40 WBC 12.1 H RBC 5.21 Hgb 13.9 Hct 44.9 MCV 86.2 MCH 26.7 L MCHC 31.0 L RDW Std Deviation 43.0 RDW Coeff of Karon 13.7 Plt Count 401 MPV 9.4 Immature Gran % (Auto) 0.500 Neut % (Auto) 53.2 Lymph % (Auto) 38.4 [place] % (Auto) 5.9 Eos % (Auto) 1.5 Baso % (Auto) 0.5 Absolute Neuts (auto) 6.4 Absolute Lymphs (auto) 4.64 H Nucleated RBC % 0 Sodium 137 Potassium 3.8 Chloride 103 Carbon Dioxide 29.0 Anion Gap 5 BUN 12 Creatinine 0.88 Estim Creat Clear Calc 69.90 Est GFR (MDRD) Af Amer 93 Est GFR (MDRD) Non-Af 77 BUN/Creatinine Ratio 13.6 Glucose 93 Calcium 8.7 Lipase 304 Urine Color Yellow Urine Clarity Clear Urine pH 7.0 Ur Specific [place] 1.005 Urine Protein Negative Urine Glucose (UA) Normal Urine Ketones Negative Urine Occult Blood Negative Urine Nitrite Negative Urine Bilirubin Negative Urine Urobilinogen Normal Ur Leukocyte Esterase Negative Urine RBC 0 SEEN Urine WBC 0 SEEN Ur Squamous Epith Cells 0-5 SEEN Urine Bacteria 0 SEEN Urine Mucus 0 SEEN Discharge Plan Triage Chief Complaint: Abd Pain ED Provider: Lazarus Lou Dx/Rx/DC Orders Clinical Impression: Diffuse abdominal pain, Urinary urgency, Mucous in stools Instructions: ED Abdominal Pain Unkn Cause Fem, ED Clear Liquid Diet Prescriptions: New simethicone 125 mg tablet,chewable 125 mg PO TID PRN (Reason: abdominal distention) Qty: 20 RF: 0 dicyclomine 10 mg capsule 20 mg PO Q6H PRN (Reason: abdominal pain) Qty: 20 RF: 0 metoclopramide HCl [Reglan] 10 mg tablet 10 mg PO Q6H PRN (Reason: nausea and vomiting) Qty: 20 RF: 0 tramadol 50 mg tablet 50 mg PO Q4H PRN PRN (Reason: Pain) Qty: 10 RF: 0 No Action multivitamin tablet 1 tab PO DAILY RF: 0 cetirizine [Zyrtec] 10 mg tablet 10 mg PO DAILY RF: 0 hydrocortisone 2.5 % ointment 1 applic TOPICAL BID Qty: 28.35 RF: 1 cholecalciferol (vitamin D3) 1,250 mcg (50,000 unit) capsule 50,000 unit PO QWEEK RF: 0 cholestyramine-aspartame 4 gram powder 1 each PO QAC RF: 0 atenolol 25 mg tablet 25 mg PO DAILY PRN (Reason: PER SYMPTOMS) RF: 0 albuterol sulfate 1 INHALER inhaler 1 - 2 puff INHALATION Q6H PRN PRN (Reason: Asthma) RF: 0 ondansetron 4 MG tablet 4 mg PO Q8H PRN PRN (Reason: Nausea) Qty: 10 RF: 0 sulfamethoxazole-trimethoprim 1 TABLET tablet 1 tablet PO BID RF: 0 belladonna alkaloids-opium 16.2 mg-30 mg rectal suppository 16.2-30 mg suppository 1 supp RC TID PRN (Reason: pain) Qty: 12 RF: 0 pantoprazole 40 mg tablet,delayed release (DR/EC) See Rx Instructions .ROUTE .COMPLEX Qty: 30 RF: 0 Primary Care Provider: Anant Curran Referrals: Anant Curran DO [Primary Care Provider] - 3-5 Days if not improving
[2020-07-25 05:40] LABS: Absolute Lymphocyte Count 4.64 X10^3/uL (0.83-4.51); Absolute Neutrophil Count 6.4 X10^3/uL (2.0-7.7); Bacteria 0 SEEN /hpf (None Seen); Basophil# 0.06 X10^3/uL; Basophil% 0.5 % (0-1); Eosinophil# 0.18 X10^3/uL; Eosinophils% 1.5 % (0-5); Hematocrit 44.9 % (37-47); Hemoglobin 13.9 g/dL (12.0-15.0); Lymphocyte # 4.64 X10^3/ul (0.83-4.51); Lymphocyte % 38.4 % (19-41); Mean Corpuscular Hgb 26.7 pg (27.0-32.0); Mean Corpuscular Volume 86.2 fL (81-99); Mean Platelet Vol. 9.4 fl (6.2-12.0); Monocyte# 0.71 X10^3/uL; Monocyte% 5.9 % (0-10); Mucous, Urine 0 SEEN /hpf (<or=2+); NRBC Flagged by Analyzer 0 % (0-5); Neutrophil # 6.42 X10^3/uL (2.7-7.7); Neutrophil % 53.2 % (47-70); Platelet Count 401 K/mm3 (150-450); RBC Distribution Width CV 13.7 % (11.6-14.6); Red Blood Cells-Urine 0 SEEN /hpf (0-5); Red Blood Count 5.21 M/mm3 (4.2-5.4); White Blood Cells 0 SEEN /hpf (0-5); White Blood Count 12.1 K/mm3 (4.4-11.0)
[2020-07-25] MEDS: Ketorolac 30 MG/ML Syringe IV (05:40)
[2020-07-25 05:41] LABS: Color, Urine Yellow (Yellow); Glucose, Dipstick Normal (Normal); Ketone-Dipstick Negative (Negative); Leukocyte Esterase-Dipstick Negative /ul (Negative); Nitrite-Dipstick Negative (Negative); Occult Blood-Urine Negative /ul (Negative); Protein-Dipstick Negative (Negative); Specific Gravity, Urine 1.005 (1.002-1.030); Urine Bilirubin Dipstick Negative (Negative); Urine Clarity Clear (Clear); Urine Urobilinogen Normal (Normal)
[2020-07-25] MEDS: Metoclopramide 10 MG/2 ML Vial 5 MG IV (05:41)
[2020-07-25] MEDS: Morphine 4 MG/ML Syringe IV (05:42)
[2020-07-25] MEDS: Dicyclomine 20 MG/2 ML Vial IM (05:42)
[2020-07-25] MEDS: 0.9% Normal Saline 1,000 ML 1000 ML IV (05:43)
[2020-07-25 05:49] LABS: Anion Gap 5 (5-15); BUN 12 mg/dL (7-18); BUN/Creat Ratio 13.6 RATIO (10-20); Calcium,Total 8.7 mg/dL (8.5-10.1); Chloride 103 mmol/L (98-107); Creatinine, Serum 0.88 mg/dL (0.55-1.02); EST Glomerular Filtration Rate 77 mL/min (>60); Est Glom Filt Rate - Afr Amer 93 mL/min (>60); Glucose 93 mg/dL (74-106); Lipase 304 U/L (73-393); Potassium 3.8 mmol/L (3.5-5.1); Sodium Level 137 mmol/L (136-145); Squamous Epithelial Cells - UA 0-5 SEEN /hpf (5-10)
[2020-07-25 07:20] VITALS: BP 130/79; PULSE 81; RESP 14; O2SAT 100
== END 2020-07-25 07:22 | disposition home or self-care (01) ==
PROVIDERS: Emergency Provider Emergency Medicine; PCP Family Medicine
DX: R10.84 Generalized abdominal pain (principal); R39.15 Urgency of urination; R19.5 Other fecal abnormalities; I10 Essential (primary) hypertension; J45.909 Unspecified asthma, uncomplicated; M19.90 Unspecified osteoarthritis, unspecified site; Z79.51 Long term (current) use of inhaled steroids; Z79.899 Other long term (current) drug therapy
CPT/HCPCS: 80048; 81001; 83690; 85025; 96361; 96372; 96374; 96375; 99283; J7030; A4216

== ENCOUNTER → 2020-08-05 13:33 | Outpatient (CLI) | payer MEDICAID, SELFPAY ==
[2020-07-25 04:37] VITALS: BMI 33.2
[2020-08-05 15:09] LABS: Color, Urine Yellow (Yellow); Glucose, Dipstick Normal (Normal); Ketone-Dipstick Negative (Negative); Leukocyte Esterase-Dipstick Negative /ul (Negative); Nitrite-Dipstick Negative (Negative); Occult Blood-Urine 10 /ul (Negative); Protein-Dipstick Negative (Negative); Specific Gravity, Urine 1.015 (1.002-1.030); Urine Bilirubin Dipstick Negative (Negative); Urine Clarity Clear (Clear); Urine Urobilinogen Normal (Normal)
== END ==
PROVIDERS: PCP Family Medicine; Referring Provider Family Medicine; Visit Provider Family Medicine
DX: R30.0 Dysuria (principal)
CPT/HCPCS: 81002

== ENCOUNTER 2020-08-06 20:52 | Emergency (ER) | payer MEDICAID, SELFPAY ==
[2020-08-06 14:24] VITALS: BMI 33.2
[2020-08-06 20:53] VITALS: BP 121/87; PULSE 78; RESP 16; TEMP 36.2; O2SAT 98; BMI 32.0
[2020-08-06] MEDS: Morphine 4 MG/ML Syringe IV (21:47)
[2020-08-06] MEDS: Ondansetron 4 MG/2 ML Vial IV (21:47)
[2020-08-06 21:54] LABS: Bacteria 0 SEEN /hpf (None Seen); Mucous, Urine 0 SEEN /hpf (<or=2+); Red Blood Cells-Urine 0 SEEN /hpf (0-5); White Blood Cells 0 SEEN /hpf (0-5)
[2020-08-06 22:01] LABS: Glucose, Dipstick Normal (Normal); Ketone-Dipstick Negative (Negative); Leukocyte Esterase-Dipstick Negative /ul (Negative); Nitrite-Dipstick Negative (Negative); Occult Blood-Urine Negative /ul (Negative); Protein-Dipstick Negative (Negative); Specific Gravity, Urine 1.005 (1.002-1.030); Urine Bilirubin Dipstick Negative (Negative); Urine Urobilinogen Normal (Normal)
[2020-08-06 22:04] LABS: Color, Urine Yellow (Yellow); Internal QC Validated? YES +Cl - CLEAR BKGD; Pregnancy, Urine Negative Negative; Urine Clarity Clear (Clear)
[2020-08-06 22:08] LABS: Squamous Epithelial Cells - UA 0-5 SEEN /hpf (5-10)
--- NOTE | 2020-08-06 22:34 | CT_ITS ---
STUDY: CT ABDOMEN AND PELVIS WITHOUT CONTRAST REASON FOR EXAM: Female, 34 years old. flank pain RADIATION DOSAGE (If Supplied By Facility): CTDIvol = ( 11.51 ) mGy, DLP = ( 586.55 ) mGycm TECHNIQUE: Transaxial images were obtained from the dome of the diaphragm to the symphysis pubis without oral contrast, and without intravenous contrast. Sagittal and coronal images were reconstructed. Individualized dose optimization techniques were used for this CT. COMPARISON: None. FINDINGS: The visualized lung bases are unremarkable. The visualized portions of the heart are within normal limits. Normal liver. There are surgical clips in the gallbladder fossa consistent with a prior cholecystectomy. Normal spleen. Normal pancreas. Normal bilateral adrenal glands. Normal right kidney. Normal left kidney. Punctate bilateral nonobstructing nephrolithiasis. Normal visualized stomach. Normal small intestine. Normal colon. The appendix is visualized and appears normal. Normal abdominal aorta. Normal inferior vena cava. Normal retroperitoneum. Normal urinary bladder. Unremarkable uterus Normal abdominal wall. Normal osseous structures. CT/Abdomen/Pelvis without Cont IMPRESSION: Status post cholecystectomy. Tiny nonobstructing bilateral nephrolithiasis which is stable from the prior exam. No acute findings Electronically Signed: Eliseo Jackman DO at 23:28 EDT Tel , Service support ,
[2020-08-06] MEDS: HYDROmorphone 1 MG/ML Syringe IV (22:41)
--- NOTE | 2020-08-07 00:50 | EDS_ITS ---
HPI History of Present Illness Chief Complaint: Flank Pain Informant: patient Narrative Narrative: 34-year-old female presenting with left flank pain. States this feels very similar to her previous kidney stones. Initially she wanted to try pain medications without CT scan as she had a CT scan in June. The pain is in her left flank radiating to her left lower quadrant. She noted blood in her urine a few days ago. She has nausea with no vomiting. She is scheduled to see a urologist next week. Prior similar symptoms: Yes Recent Illness/Hospitalization: No PFSH PFSH Medical History Acid reflux Anal fissure Ankylosing spondylitis Anxiety Arthritis Asthma Diarrhea Diverticulosis Ectopic cardiac beats Endometriosis Endometriosis Exercise-induced asthma Fatigue Gestational diabetes h/o lesion removal Hematochezia Hemorrhoids Hepatic steatosis History of back problems Hypertension lysis of adensions (~09/2019) Mitral regurgitation Nausea & vomiting Ovarian cyst PCOS (polycystic ovarian syndrome) Prolapse of intestine Sinus tachycardia Sinus tachycardia Sleep apnea Symptomatic bradycardia Symptomatic bradycardia Tachycardia Home Medications multivitamin 1 tab PO DAILY 12/13/17 [History Last Taken 09/17/18] cetirizine 10 mg tablet 10 mg PO DAILY 09/05/19 [History Last Taken Unknown] hydrocortisone 2.5 % topical ointment 1 applic TOPICAL BID #28.35 g 09/05/19 [Rx Last Taken Unknown] albuterol sulfate 1 - 2 puff INHALATION Q6H PRN PRN 10/19/19 [History Last Taken Unknown] belladonna alkaloids-opium 16.2 mg-30 mg rectal suppository 1 supp RC TID PRN #12 ea 01/04/20 [Rx Last Taken Unknown] ondansetron 4 mg PO Q8H PRN PRN #10 tab 04/27/20 [Rx Last Taken Unknown] pantoprazole 40 mg tablet,delayed release See Rx Instructions .ROUTE .COMPLEX #30 tablet 07/02/20 [Rx Last Taken Unknown] atenolol 25 mg tablet 25 mg PO DAILY PRN tablet 07/08/20 [History Last Taken Unknown] cholecalciferol (vitamin D3) 1,250 mcg (50,000 unit) capsule 50,000 unit PO QWEEK cap 07/08/20 [History Last Taken Unknown] oxycodone-acetaminophen 5 mg-325 mg tablet 1 tab PO Q6H PRN tab 05/11/21 [History Last Taken Unknown] potassium chloride 20 mEq tablet,extended release 20 meq PO BID tab 08/06/20 [History Last Taken Unknown] tretinoin 0.025 % topical gel 1 applic TOPICAL QHS 08/06/20 [History Last Taken Unknown] ondansetron 4 mg PO Q8H PRN PRN #10 tab 08/07/20 [Rx Last Taken Unknown] oxycodone-acetaminophen 1 tab PO Q6H PRN PRN 2 Days #8 tablet 08/07/20 [Rx Last Taken Unknown] Allergy/AdvReac Type Severity Reaction Status Date / Time acetaminophen [From Vicodin] Allergy Severe Itching Verified 08/06/20 20:55 cephalexin monohydrate Allergy Severe Anaphylaxis Verified 08/06/20 20:55 [From Keflex] cyclobenzaprine Allergy Severe Mental Verified 08/06/20 20:55 [From Flexeril] status change hydrocodone [From Vicodin] Allergy Severe Itching Verified 08/06/20 20:55 latex Allergy Mild Swelling Verified 08/06/20 20:55 eucalyptus AdvReac Severe tachycardia, Verified 08/06/20 20:55 close airway NSAIDS (Non-Steroidal AdvReac Severe GI upset Verified 08/06/20 20:55 Anti-Inflamma tizanidine AdvReac Severe Low HR Verified 08/06/20 20:55 ciprofloxacin [From Cipro] AdvReac diarrhea, Verified 08/06/20 20:55 nausea, tachycardia doxycycline AdvReac Diarrhea Verified 08/06/20 20:55 Family History Mother Heart disease Hypertension Father Heart disease Diabetes Hypertension Surgical History H/O cystoscopy (~09/2019) H/O dilation and curettage (~09/2019) History of History of hernia repair Hx laparoscopic cholecystectomy (~09/2019) Hx of removal of ovary Social History Smoking Status: Never smoker alcohol intake: never substance use type: does not use caffeine: No what type of physical activity do you participate in: walking frequency: 5-6 times per week seatbelt use: always do you feel safe at home: Yes additional social history: Single- Currently unemployed ROS ROS ED Constitutional Constitutional ED: Denies fever(s) ENT ENT ED: Denies rhinorrhea or sore throat Cardiovascular Cardiovascular: Denies chest pain or palpitations Respiratory/Chest Respiratory/Chest: Denies cough or dyspnea Gastrointestinal Gastrointestinal: Reports abdominal pain and nausea; Denies diarrhea or vomiting Genitourinary Genitourinary ED: Reports hematuria; Denies dysuria Musculoskeletal Musculoskeletal: Reports back pain Integumentary Denies rash Neurologic Neurologic: Denies headache(s) EXAM Physical Exam Const Vital Signs: 08/06/20 20:53 Temperature 97.1 F L Temperature Source Temporal Pulse Rate 78 Respiratory Rate 16 Blood Pressure 121/87 H Blood Pressure Mean 98 Pulse Ox 98 Oxygen Delivery Method Room Air Positive well nourished and well developed General Appearance ED: well developed HEENT Reports normocephalic and head/scalp atraumatic Eyes PERRL and EOMs intact bilaterally Neck supple General: Negative for tenderness Chest Wall inspection of chest normal Resp normal respiratory effort and clear to auscultation bilaterally Cardio regular rate and regular rhythm GI non-tender and non-distended Palpation: soft; Negative for guarding or rebound tenderness present no CVA tenderness Back/Spine General Back: CVA tenderness left Extremity normal to inspection Neuro oriented x3 Sensorium / Orientation: alert Psych mental status grossly normal Skin no rashes or lesions noted MDM MDM MDM Narrative Medical decision making narrative: Patient given morphine, Zofran IV. She continued to have pain and was given Dilaudid. She states the pain now radiates to her mid abdomen. CT abdomen pelvis was then obtained which shows no acute findings. Urinalysis unremarkable. hCG negative. CBC, chemistries are unremarkable. Patient has upcoming appointment with urology and with surgery for an upper and lower scope. Patient will follow up with these appointments. She is advised return to ED for worsening complaints. Lab Data Attestation: I reviewed the patient's lab results. Labs: Laboratory Results - last 24 hr 08/06/20 08/06/20 08/06/20 21:45 21:45 21:45 WBC 8.4 RBC 4.53 Hgb 12.3 Hct 38.9 MCV 85.9 MCH 27.2 MCHC 31.6 L RDW Std Deviation 41.5 RDW Coeff of Karon 13.2 Plt Count 282 MPV 9.6 Immature Gran % (Auto) 0.200 Neut % (Auto) 46.2 L Lymph % (Auto) 44.6 H [place] % (Auto) 6.9 Eos % (Auto) 1.6 Baso % (Auto) 0.5 Absolute Neuts (auto) 3.9 Absolute Lymphs (auto) 3.74 Nucleated RBC % 0 Sodium Potassium Chloride Carbon Dioxide Anion Gap BUN Creatinine Estim Creat Clear Calc Est GFR (MDRD) Af Amer Est GFR (MDRD) Non-Af BUN/Creatinine Ratio Glucose Calcium Urine Color Yellow Urine Clarity Clear Urine pH 7.0 Ur Specific [place] 1.005 Urine Protein Negative Urine Glucose (UA) Normal Urine Ketones Negative Urine Occult Blood Negative Urine Nitrite Negative Urine Bilirubin Negative Urine Urobilinogen Normal Ur Leukocyte Esterase Negative Urine RBC 0 SEEN Urine WBC 0 SEEN Ur Squamous Epith Cells 0-5 SEEN Urine Bacteria 0 SEEN Urine Mucus 0 SEEN Urine Test Negative 08/06/20 21:45 WBC RBC Hgb Hct MCV MCH MCHC RDW Std Deviation RDW Coeff of Karon Plt Count MPV Immature Gran % (Auto) Neut % (Auto) Lymph % (Auto) [place] % (Auto) Eos % (Auto) Baso % (Auto) Absolute Neuts (auto) Absolute Lymphs (auto) Nucleated RBC % Sodium 139 Potassium 3.7 Chloride 106 Carbon Dioxide 29.0 Anion Gap 4 L BUN 7 Creatinine 0.73 Estim Creat Clear Calc 84.26 Est GFR (MDRD) Af Amer 115 Est GFR (MDRD) Non-Af 95 BUN/Creatinine Ratio 9.5 L Glucose 92 Calcium 9.2 Urine Color Urine Clarity Urine pH Ur Specific [place] Urine Protein Urine Glucose (UA) Urine Ketones Urine Occult Blood Urine Nitrite Urine Bilirubin Urine Urobilinogen Ur Leukocyte Esterase Urine RBC Urine WBC Ur Squamous Epith Cells Urine Bacteria Urine Mucus Urine Test Radiography Diagnostic Testing: Radiology Impression Abdomen/Pelvis CT 08/06/20 22:34 IMPRESSION: Status post cholecystectomy. Tiny nonobstructing bilateral nephrolithiasis which is stable from the prior exam. No acute findings Electronically Signed: Eliseo Jackman DO at 23:28 EDT Tel , Service support , Discharge Plan Triage Chief Complaint: Flank Pain ED Provider: Marie Ruiz Dx/Rx/DC Orders Clinical Impression: Acute left flank pain Instructions: ED Flank Pain, Uncertain Cause Prescriptions: New oxycodone-acetaminophen [oxycodone-acetaminophen] 1 TABLET tablet 1 tab PO Q6H PRN PRN (Reason: Pain) 2 Days Qty: 8 RF: 0 ondansetron [ondansetron] 4 MG tablet 4 mg PO Q8H PRN PRN (Reason: Nausea) Qty: 10 RF: 0 No Action multivitamin tablet 1 tab PO DAILY RF: 0 cetirizine [Zyrtec] 10 mg tablet 10 mg PO DAILY RF: 0 hydrocortisone 2.5 % ointment 1 applic TOPICAL BID Qty: 28.35 RF: 1 cholecalciferol (vitamin D3) 1,250 mcg (50,000 unit) capsule 50,000 unit PO QWEEK RF: 0 atenolol 25 mg tablet 25 mg PO DAILY PRN (Reason: PER SYMPTOMS) RF: 0 oxycodone-acetaminophen 5-325 mg tablet 1 tab PO Q6H PRN (Reason: Pain) RF: 0 tretinoin 0.025 % gel 1 applic topical QHS RF: 0 potassium chloride 20 mEq tablet extended release 20 meq PO BID RF: 0 albuterol sulfate 1 INHALER inhaler 1 - 2 puff INHALATION Q6H PRN PRN (Reason: Asthma) RF: 0 ondansetron 4 MG tablet 4 mg PO Q8H PRN PRN (Reason: Nausea) Qty: 10 RF: 0 belladonna alkaloids-opium 16.2 mg-30 mg rectal suppository 16.2-30 mg suppository 1 supp RC TID PRN (Reason: pain) Qty: 12 RF: 0 pantoprazole 40 mg tablet,delayed release (DR/EC) See Rx Instructions .ROUTE .COMPLEX Qty: 30 RF: 0 Primary Care Provider: Anant Curran Referrals: Anant Curran DO [Primary Care Provider] - Disposition Disposition: Home, self care
[2020-08-07 01:08] LABS: Absolute Lymphocyte Count 3.74 X10^3/uL (0.83-4.51); Absolute Neutrophil Count 3.9 X10^3/uL (2.0-7.7); Basophil# 0.04 X10^3/uL; Basophil% 0.5 % (0-1); Eosinophil# 0.13 X10^3/uL; Eosinophils% 1.6 % (0-5); Hematocrit 38.9 % (37-47); Hemoglobin 12.3 g/dL (12.0-15.0); Lymphocyte # 3.74 X10^3/ul (0.83-4.51); Lymphocyte % 44.6 % (19-41); Mean Corp Hgb Conc 31.6 g/dL (32-36); Mean Corpuscular Hgb 27.2 pg (27.0-32.0); Mean Corpuscular Volume 85.9 fL (81-99); Mean Platelet Vol. 9.6 fl (6.2-12.0); Monocyte# 0.58 X10^3/uL; Monocyte% 6.9 % (0-10); NRBC Flagged by Analyzer 0 % (0-5); Neutrophil # 3.87 X10^3/uL (2.7-7.7); Neutrophil % 46.2 % (47-70); Platelet Count 282 K/mm3 (150-450); RBC Distribution Width CV 13.2 % (11.6-14.6); RBC Distribution Width SD 41.5 fl (35.1-43.9); Red Blood Count 4.53 M/mm3 (4.2-5.4); White Blood Count 8.4 K/mm3 (4.4-11.0)
[2020-08-07 01:18] LABS: Anion Gap 4 (5-15); BUN 7 mg/dL (7-18); BUN/Creat Ratio 9.5 RATIO (10-20); Calcium,Total 9.2 mg/dL (8.5-10.1); Chloride 106 mmol/L (98-107); Creatinine, Serum 0.73 mg/dL (0.55-1.02); EST Glomerular Filtration Rate 95 mL/min (>60); Est Glom Filt Rate - Afr Amer 115 mL/min (>60); Estimated Creatinine Clearance 84.26 ml/min; Glucose 92 mg/dL (74-106); Potassium 3.7 mmol/L (3.5-5.1); Sodium Level 139 mmol/L (136-145)
[2020-08-07 01:54] VITALS: BP 118/85; PULSE 76; RESP 16; O2SAT 100
== END 2020-08-07 01:55 | disposition home or self-care (01) ==
PROVIDERS: Emergency Provider Emergency Medicine; PCP Family Medicine
DX: R10.9 Unspecified abdominal pain (principal); K21.9 Gastro-esophageal reflux disease without esophagitis; M19.90 Unspecified osteoarthritis, unspecified site; J45.990 Exercise induced bronchospasm; I10 Essential (primary) hypertension; Z87.442 Personal history of urinary calculi; Z79.51 Long term (current) use of inhaled steroids; Z79.899 Other long term (current) drug therapy
CPT/HCPCS: 74176; 80048; 81001; 81025; 85025; 96374; 96375; 99283; A4216; J2405

== ENCOUNTER 2020-08-09 10:38 | Day surgery (SDC) | payer MEDICAID, SELFPAY ==
[2020-08-09] VITALS (13 sets, daily range): BP systolic 108–135; BP diastolic 68–82; PULSE 68–122; RESP 16–22; TEMP 36.6–37.2; O2SAT 100; BMI 31.9
--- NOTE | 2020-08-09 | GASB_PTH ---
PATIENT: YAA ARCE LOC: EN U#:[id number] AGE/SX: 34/F ROOM: RE08/09/[address]: Dr. Ana Lilia Burt MD : 1985 BED: DIS: 08/09/2020 SPEC #: [id number] RECD: 08/09/20 13:57 STATUS: GWEN REChema #: [id number] JENIFFER: 08/09/20 00:[address]: Ana Lilia Burt DEPT: SURGICAL PATHOLOGY RECD BY: Ayad Staples ENTERED: 08/09/20 13:58 SP TYPE: Gastric Bx OTHR DR: Dr. Anant Curran, DO Tissues: A - Gastric mucous membrane B - Gastric mucous membrane C - Ileum, NOS D - Ascending colon E - Transverse colon F - Descending colon G - Sigmoid colon biopsy H - Rectum, NOS Procedures: Surgery Specimen Level IV HEADER OPERATION: Colonoscopy, EGD ([facility] [place]) PRE-OP DIAGNOSIS: Epigastric pain, bloating TISSUE SUBMITTED: A ? Antrum biopsy for H. pylori and path, B ? Gastric polyp, C ? Terminal ileum biopsy, D ? Ascending colon biopsy, E ? Transverse colon biopsy, F ? Descending colon biopsy, G ? Sigmoid colon biopsy, H ? Rectal colon biopsy MICROSCOPIC DIAGNOSIS A. Antrum biopsy: Mild gastritis. See microscopic description and comment. B. Gastric polyp, biopsy: Fragments of fundic gland polyp. C. Terminal ileum, biopsy: A fragment of small intestinal mucosa, no pathologic diagnosis. D. Ascending colon, biopsy: A fragment of colonic mucosa, no pathologic diagnosis. E. Transverse colon, biopsy: A fragment of colonic mucosa, no pathologic diagnosis. F. Descending colon, biopsy: A fragment of colonic mucosa, no pathologic diagnosis. G. Sigmoid colon, biopsy: A fragment of colonic mucosa, no pathologic diagnosis. H. Rectal biopsy: A fragment of colonic mucosa, no pathologic diagnosis. SJ:rg 08/12/2020 COMMENT A. The results of immunohistochemistry for Helicobacter pylori will be reported separately ([id number]). MICROSCOPIC DESCRIPTION Slides are reviewed. A. The specimen shows fragments of gastric mucosa with chronic inflammatory cell infiltrates in the lamina propria consisting of lymphocytes and plasma cells, consistent with mild chronic gastritis. GROSS DESCRIPTION A - Received in fixative is one container labeled with the patient's name and designated antrum biopsy. The specimen consists of one irregular fragment of light hassan soft tissue that measures 0.3 x 0.3 x 0.1 cm. The specimen is totally submitted in one cassette. B - Received in fixative is one container labeled with the patient's name and designated gastric polyp. The specimen consists of two irregular fragments of light hassan soft tissue that in aggregate measure 0.5 x 0.3 x 0.1 cm. The specimen is totally submitted in one cassette. C - Received in fixative is one container labeled with the patient's name and designated terminal ileum biopsy. The specimen consists of one irregular fragment of light hassan soft tissue that measures 0.3 x 0.3 x 0.1 cm. The specimen is totally submitted in one cassette. D - Received in fixative is one container labeled with the patient's name and designated ascending colon biopsy. The specimen consists of one irregular fragment of light hassan soft tissue that measures 0.4 x 0.2 x 0.1 cm. The specimen is totally submitted in one cassette. E - Received in fixative is one container labeled with the patient's name and designated transverse colon biopsy. The specimen consists of one irregular fragment of light hassan soft tissue that measures 0.3 x 0.3 x 0.1 cm. The specimen is totally submitted in one cassette. F - Received in fixative is one container labeled with the patient's name and designated descending colon biopsy. The specimen consists of one irregular fragment of light hassan soft tissue that measures 0.8 x 0.2 x 0.1 cm. The specimen is totally submitted in one cassette. G - Received in fixative is one container labeled with the patient's name and designated sigmoid colon biopsy. The specimen consists of one irregular fragment of light hassan soft tissue that measures 0.5 x 0.2 x 0.1 cm. The specimen is totally submitted in one cassette. H - Received in fixative is one container labeled with the patient's name and designated rectal biopsy. The specimen consists of one irregular fragment of light hassan soft tissue that measures 0.6 x 0.1 x 0.1 cm. The specimen is totally submitted in one cassette. / SJ:vasyl 08/09/20 TC:3 CPT: 13030 x8
[2020-08-09 11:02] LABS: Internal QC Validated? YES +Cl - CLEAR BKGD; Pregnancy, Urine Negative Negative
--- NOTE | 2020-08-09 11:13 | PCM.HP.BLA ---
History and Physical Date of Admission: 08/09/20 Date of Service:? 08/06/20 MR#: [id number] Acct: [id number] Name:YAA EDUARDO Rep #: [id number] : 1985 ? ? Provider: Dr. Ana Lilia Burt MD Age/Sex:? 34/F ? ? Location: [facility] Status: Signed Intake Vital Signs ? 08/06/2113:21 08/06/2113:24 Height 5 ft 2 in ? Weight: 179 lb 8 oz ? BMI 32.8 33.2 BP 131/81 H ? Blood Pressure Location Rt brachial ? Position Sitting ? Respiration 18 ? Pulse 82 ? Pulse Source NIBP ? Temp 98.2 F ? Temp Source Temporal ? Pulse Oximetry (%) 99 ? Oxygen Delivery Method room air ? Intake Visit Reasons:?Epigastric Pain Chief Complaint: epigastric pain/ bloating [employer] Operator Required: No Is patient in pain?: Yes (epigastric area ) Pain scale (1-10): 10 Allergies acetaminophen [From Vicodin] Allergy (Severe, Verified 07/25/20 04:42) Itchingcephalexin monohydrate [From Keflex] Allergy (Severe, Verified 08/06/20 14:22) Anaphylaxiscyclobenzaprine [From Flexeril] Allergy (Severe, Verified 07/25/20 04:42) Mental status changehydrocodone [From Vicodin] Allergy (Severe, Verified 07/25/20 04:42) Itchinglatex Allergy (Mild, Verified 07/25/20 04:42) Swellingeucalyptus Adverse Reaction (Severe, Verified 07/25/20 04:42) tachycardia, close airwayNSAIDS (Non-Steroidal Anti-Inflamma Adverse Reaction (Severe, Verified 07/25/20 04:42) GI upsettizanidine Adverse Reaction (Severe, Verified 07/25/20 04:42) Low HRciprofloxacin [From Cipro] Adverse Reaction (Verified 07/25/20 04:42) diarrhea, nausea, tachycardiadoxycycline Adverse Reaction (Verified 07/22/20 22:03) Diarrhea Medications multivitamin 1 tab PO DAILY 12/13/17 [History Confirmed 08/06/20] cetirizine 10 mg tablet 10 mg PO DAILY 09/05/19 [History Confirmed 08/06/20] hydrocortisone 2.5 % topical ointment 1 applic TOPICAL BID #28.35 g 09/05/19 [Rx Confirmed 08/06/20] albuterol sulfate 1 - 2 puff INHALATION Q6H PRN PRN 10/19/19 [History Confirmed 08/06/20] belladonna alkaloids-opium 16.2 mg-30 mg rectal suppository 1 supp RC TID PRN #12 ea 01/04/20 [Rx Confirmed 07/25/20] ondansetron 4 mg PO Q8H PRN PRN #10 tab 04/27/20 [Rx Confirmed 08/06/20] pantoprazole 40 mg tablet,delayed release See Rx Instructions .ROUTE .COMPLEX #30 tablet 07/02/20 [Rx Confirmed 08/06/20] atenolol 25 mg tablet 25 mg PO DAILY PRN? tablet 07/08/20 [History Confirmed 08/06/20] cholecalciferol (vitamin D3) 1,250 mcg (50,000 unit) capsule 50,000 unit PO QWEEK? cap 07/08/20 [History Confirmed 08/06/20] oxycodone-acetaminophen 5 mg-325 mg tablet 1 tab PO Q6H PRN? tab 08/06/20 [History Confirmed 08/06/20] potassium chloride 20 mEq tablet,extended release 20 meq PO BID? tab 08/06/20 [History Confirmed 08/06/20] tretinoin 0.025 % topical gel 1 applic TOPICAL QHS 08/06/20 [History Confirmed 08/06/20] Is last menstrual period known: No Post menopausal: No Patient : No PFSH Medical History?(Updated 08/06/20 @ 15:[address] Ana Lilia Burt MD) Acid reflux Anal fissure Ankylosing spondylitis Anxiety Arthritis Asthma Diarrhea Diverticulosis Ectopic cardiac beats Endometriosis Endometriosis Exercise-induced asthma Fatigue Gestational diabetes h/o lesion removal Hematochezia Hemorrhoids Hepatic steatosis History of back problems Hypertension lysis of adensions (~09/2019) Mitral regurgitation Nausea & vomiting Ovarian cyst PCOS (polycystic ovarian syndrome) Prolapse of intestine Sinus tachycardia Sinus tachycardia Sleep apnea Symptomatic bradycardia Symptomatic bradycardia Tachycardia Surgical History?(Updated 08/06/20 @ 15:[address] Ana Lilia Burt MD) H/O cystoscopy (~09/2019) H/O dilation and curettage (~09/2019) History of History of hernia repair Hx laparoscopic cholecystectomy (~09/2019) Hx of removal of ovary Family History?(Updated 08/06/20 @ 14:32 by Vita Lim) Mother Heart disease HypertensionFather Heart disease Diabetes Hypertension Social History?(Updated 07/08/20 @ 15:18 by Travis Estes [employer]IGITAL MARKETING LEAD, DIGITAL MARKETING LEAD[employer]C) Smoking Status:? Never smoker alcohol intake:? never substance use type:? does not use caffeine:? No what type of physical activity do you participate in:? walking frequency:? 5-6 times per week seatbelt use:? always do you feel safe at home:? Yes additional social history:? Single- Currently unemployed ? HPI HPI HPI: YAA ARCE, is a 34 F who presents to the office today for Abdominal pain.? Patient states for the last month she has had this epigastric abdominal pain initially did go into her back.? Along with this patient did have diarrhea about a dozen times a day.? Patient did have some lab work showed some increased inflammation as her PCP did give her some dexamethasone as patient has a questionable history of IBD as well.? Patient states she was diagnosed when she was younger however she has not had any official diagnosis since but when she does get these flareups steroids do improve it.? Patient has initially been seeing the nurse practitioner at [facility] however she is retiring patient states she has been unable to see an actual shiftman due to schedule changes prior to her appointment.? Patient states her diarrhea did improve with the steroids.? Still complains of epigastric pain.? Patient is on Protonix 40 mg daily which patient states controls her reflux which is usually burning up the esophagus.? Did also try Protonix twice daily however that has not changed her epigastric pain.? Patient also previously in March/April had 5 kidney stones but the pain was more suprapubic.? Patient did have a UA done by her PCP which showed blood in her urine test patient was given Bactrim for antibiotic for short course.? Patient describes her epigastric pain as dull can be a 5?6/10 towards the left.? Patient states pain increases with any solid food or even ice cream.? Patient is able to drink clear liquids.? Patient states she has not had any vomiting for the last 2 weeks.? Patient states her last EGD was in 2013 or and last colonoscopy was a while ago. ROS General General: Yes fatigue; No weight change Psych Psychiatric: Yes anxiety; No depression Resp Respiratory: No shortness of breath Gastro Gastrointestinal: Yes abdominal pain, Yes nausea or vomiting, Yes diarrhea, Yes constipation, No blood in stool, Yes acid reflux, Yes hemorrhoids, Yes ulcers, Yes gallbladder problem and No black,tarry stools Exam Const General: cooperative, healthy appearing, comfortable and no acute distress Neck Neck: normal visual inspection Resp Effort & Inspection: normal respiratory effort Cardio Rate: regular rate GI Inspection: non-distended Palpation: soft, no guarding and tender in the epigastrum, in the LLQ and in the LUQ; with no rebound tenderness Skin General: no rashes or lesions noted Neuro General: patient oriented x3 Psych Affect: normal affect COVID (Procedure Consent) Procedure Criteria Procedure Criteria: Yes Elective?The surgeon/proceduralist and patient have discussed in detail the risk of exposure to and/or potential harm posed by the COVID-19 virus with having a surgery/procedure at this time versus the risk of? delaying the surgery/procedure. It is not possible to know either the risk of delaying the surgery or procedure or chance of getting an infection with perfect accuracy, but a joint decision was made between the patient and the surgeon/proceduralist ?to proceed at this time with the scheduled surgery/procedure as indicated on the consent form. Assessment and Plan Assessment and Plan (1) Epigastric abdominal pain: ?Status:?Acute (2) Left sided abdominal pain: ?Status:?Acute ?Plan - Dr. Ana Lilia Burt MD: I have discussed the above with the patient and patient is aware that she may need to be referred to a GI specialist depending on results. I have offered the patient EGD and colonoscopy for evaluation.Discussed with patient would plan to do random biopsies as she does have a questionable history of IBD and history of diarrhea which improves with steroids. I have explained the risks/benefits of the procedure and described the procedure.? I have discussed the risks with the patient, including but not limited to:? infection, bleeding, perforation of the GI tract requiring emergency surgery, inability to complete the procedure, injury to any internal organs, complications of anesthesia, etc. - the patient understands and agrees to proceed. I have answered all the patient's questions to the patient's satisfaction and the patient has no further questions. The patient has been given instructions for the colon cleansing preparation.1 day of clears, MiraLAX Dulcolax split prep. Ana Lilia Burt M.D. Pager: [phone] [facility] [address] [place] [address], [address] [place] [address] Office: [phone] Plan Details Other Orders: ?Orders: ? Colonoscopy Today ? ? ? EGD Today ? ? Follow Up: ? ? will schedule EGD/colonoscopy Coding Level of Care Code Off vis,est,level 3 Diagnoses Epigastric abdominal pain? R10.13 Left sided abdominal pain? R10.9 08/06/20 1505 <Electronically signed by Ana Lilia Burt MD> Date Ana Lilia Burt MD
[2020-08-09] MEDS: Lactated Ringers 1,000 ML 100 ML IV ×2 (11:19→13:35)
--- NOTE | 2020-08-09 12:00 | IMM_PTH ---
PATIENT: YAA ARCE LOC: EN U#:[id number] AGE/SX: 34/F ROOM: RE08/09/[address]: Dr. Ana Lilia Burt MD : 1985 BED: DIS: 08/09/2020 SPEC #: [id number] RECD: 08/09/20 14:31 STATUS: GWEN REQ #: [id number] JENIFFER: 08/09/20 12:[address]: Ana Lilia Burt DEPT: IMMUNOHISTOCHEMISTRY RECD BY: Althea Umaña ENTERED: 08/09/20 14:32 SP TYPE: IMMUNO OTHR DR: Dr. Anant Curran, DO Tissues: A - Stomach, NOS Procedures: H Pylori (initial) PHYSICIAN & INSTITUTION [place] [address] SPECIMEN INFORMATION: Tissue Source: A ? Antrum biopsy Clinical Info: Epigastric pain, bloating Specimen Number: [id number] CPT code: 12644 METHODOLOGY: Deparaffinized sections of prefer/formalin-fixed tissue or PAP/DQ stained slides are incubated with monoclonal/polyclonal antibodies/oligonucleotide probes. Localization is made via biotin free immunoperoxidase method. Appropriate controls are performed and reacted as expected. Results on target cell population are indicated in the following table: RESULTS: ANTIBODY / CLONE RESULT Block A H Pylori (polyclonal) negative These tests were developed and their performance characteristics determined by [facility]. They may not have been cleared or approved by the U.S. Food and Drug Administration. The FDA has determined that such clearance or approval is not necessary. INTERPRETATION: A. Antrum biopsy: Negative for Helicobacter pylori organisms. SJ:vasyl 08/12/2020
--- NOTE | 2020-08-09 13:22 | OP.CCLET_ITS ---
08/09/2020 Anant Curran [address] [place] [address] Re : Upper GI endoscopy procedure for Kayanarendra Vera Dear Dr. Curran This procedure was performed on Sunday, August 09, 2020. My impressions and recommendations are as follows: Impressions : - Z-line regular, 38 cm from the incisors. - Erythematous mucosa in the antrum. Biopsied. - Normal examined duodenum. Recommendations : - Await pathology results. - Discharge patient to home. - Resume previous diet. - Continue present medications. My findings are described in the full procedure note, which is enclosed. If I can be of further assistance, please feel free to contact me at Doctor phone number(s): , Work: . Sincerely, MD Ana Lilia Stephens MD 08/09/2020 1:22:18 PM This report has been signed electronically.
--- NOTE | 2020-08-09 13:22 | OP.EGD_ITS ---
Patient Name: Kaya Vera Procedure Date: 08/09/2020 12:35 PM Date of : 1985 Age: 34 Procedure: Upper GI endoscopy Indications: Abdominal pain in the left upper quadrant, Abdominal pain in the left lower quadrant Providers: Ana Lilia Burt MD Referring MD: Ana Lilia Burt MD Medicines: Monitored Anesthesia Care Patient Profile: This is a 34 year old female. Complications: No immediate complications. Procedure: Pre-Anesthesia Assessment: - Prior to the procedure, a History and Physical was performed, and patient medications and allergies were reviewed. The patient's tolerance of previous anesthesia was also reviewed. The risks and benefits of the procedure and the sedation options and risks were discussed with the patient. All questions were answered, and informed consent was obtained. Prior Anticoagulants: The patient has taken no previous anticoagulant or antiplatelet agents. ASA Grade Assessment: Per anesthesia. After reviewing the risks and benefits, the patient was deemed in satisfactory condition to undergo the procedure. After obtaining informed consent, the endoscope was passed under direct vision. Throughout the procedure, the patient's blood pressure, pulse, and oxygen saturations were monitored continuously. The gastroscope was introduced through the mouth, and advanced to the second part of duodenum. The upper GI endoscopy was accomplished without difficulty. The patient tolerated the procedure well. Scope In: 12:43:56 PM Scope Out: 12:51:29 PM Total Procedure Duration Time 0 hours 7 minutes 33 seconds Findings: The Z-line was regular and was found 38 cm from the incisors. Mildly erythematous mucosa without bleeding was found in the gastric antrum. Biopsies were taken with a cold forceps for histology. Biopsies were taken with a cold forceps for Helicobacter pylori cultures. The examined duodenum was normal. The cardia and gastric fundus were normal on retroflexion. A single less than 5 mm sessile polyp with no bleeding and no stigmata of recent bleeding was found in the gastric body. The polyp was removed with a cold biopsy forceps. Resection and retrieval were complete. Bilious fluid was found in the prepyloric region of the stomach. Impression: - Z-line regular, 38 cm from the incisors. - Erythematous mucosa in the antrum. Biopsied. - Normal examined duodenum. Recommendation: - Await pathology results. - Discharge patient to home. - Resume previous diet. - Continue present medications. Procedure Code(s): --- Professional --- 26372, Esophagogastroduodenoscopy, flexible, transoral; with biopsy, single or multiple Diagnosis Code(s): --- Professional --- K31.89, Other diseases of stomach and duodenum R10.12, Left upper quadrant pain R10.32, Left lower quadrant pain CPT copyright 2017 [employer]. All rights reserved. The codes documented in this report are preliminary and upon director of exhibit development review may be revised to meet current compliance requirements. MD Ana Lilia Stephens MD 08/09/2020 1:22:18 PM This report has been signed electronically. Number of Addenda: 0 Note Initiated On: 08/09/2020 12:35 PM
--- NOTE | 2020-08-09 13:25 | SUR.PHASEI ---
MOANING FREQUENTLY, REPORTS SAME PAIN SHE ARRIVED WITH TO HOSPITAL TODAY.? RELATES SHE THOUGHT SHE WOULD NOT HAVE ANY MORE PAIN AFTER PROCEDURE. ENCOURAGED TO PASS FLATUS.? REPOSITIONED FOR COMFORT, WARM BLANKET APPLIED TO ABDOMEN.?
--- NOTE | 2020-08-09 13:28 | OP.CCLET_ITS ---
08/09/2020 Anant Curran [address] [place] [address] Re : Colonoscopy procedure for Kaya Marieso Dear Dr. Curran This procedure was performed on Sunday, August 09, 2020. My impressions and recommendations are as follows: Impressions : - Hemorrhoids found on perianal exam. - External and internal hemorrhoids. - The examined portion of the ileum was normal. - The examination was otherwise normal. - Biopsies were taken with a cold forceps for histology in the rectum, in the sigmoid colon, in the descending colon, in the transverse colon, in the ascending colon and in the terminal ileum. Recommendations : - Discharge patient to home. - Resume previous diet. - Continue present medications. - Repeat colonoscopy at age 45/50 (depends if the age changes from 50) for annual screening. - Await pathology results. My findings are described in the full procedure note, which is enclosed. If I can be of further assistance, please feel free to contact me at Doctor phone number(s): , Work: . Sincerely, MD Ana Lilia Stephens MD 08/09/2020 1:27:40 PM This report has been signed electronically.
--- NOTE | 2020-08-09 13:28 | OP.COLON_ITS ---
Patient Name: Kaya Vera Procedure Date: 08/09/2020 12:52 PM Date of : 1985 Age: 34 Procedure: Colonoscopy Indications: Abdominal pain in the left lower quadrant, Abdominal pain in the left upper quadrant, Clinically significant diarrhea of unexplained origin Providers: Ana Lilia Burt MD Referring MD: Ana Lilia Burt MD Medicines: Monitored Anesthesia Care Patient Profile: This is a 34 year old female. Last Colonoscopy: 10 years ago. Complications: No immediate complications. Procedure: Pre-Anesthesia Assessment: - Prior to the procedure, a History and Physical was performed, and patient medications and allergies were reviewed. The patient's tolerance of previous anesthesia was also reviewed. The risks and benefits of the procedure and the sedation options and risks were discussed with the patient. All questions were answered, and informed consent was obtained. Prior Anticoagulants: The patient has taken no previous anticoagulant or antiplatelet agents. ASA Grade Assessment: Per anesthesia. After reviewing the risks and benefits, the patient was deemed in satisfactory condition to undergo the procedure. After I obtained informed consent, the scope was passed under direct vision. Throughout the procedure, the patient's blood pressure, pulse, and oxygen saturations were monitored continuously. The colonoscope was introduced through the anus and advanced to the terminal ileum. The colonoscopy was performed without difficulty. The patient tolerated the procedure well. The quality of the bowel preparation was good. Scope In: 12:55:04 PM Scope Withdrawal Time 0 hours 15 minutes 50 seconds Scope Out: 1:15:41 PM Total Procedure Duration Time 0 hours 20 minutes 37 seconds Findings: Hemorrhoids were found on perianal exam. External and internal hemorrhoids were found. The hemorrhoids were Grade III (internal hemorrhoids that prolapse but require manual reduction). The terminal ileum appeared normal. Random biopsies were taken with a cold forceps in the rectum, in the sigmoid colon, in the descending colon, in the transverse colon, in the ascending colon and in the terminal ileum for histology. The exam was otherwise without abnormality. Impression: - Hemorrhoids found on perianal exam. - External and internal hemorrhoids. - The examined portion of the ileum was normal. - The examination was otherwise normal. - Biopsies were taken with a cold forceps for histology in the rectum, in the sigmoid colon, in the descending colon, in the transverse colon, in the ascending colon and in the terminal ileum. Recommendation: - Discharge patient to home. - Resume previous diet. - Continue present medications. - Repeat colonoscopy at age 45/50 (depends if the age changes from 50) for annual screening. - Await pathology results. Procedure Code(s): --- Professional --- 86915, Colonoscopy, flexible; with biopsy, single or multiple Diagnosis Code(s): --- Professional --- K64.2, Third degree hemorrhoids R10.32, Left lower quadrant pain R10.12, Left upper quadrant pain R19.7, Diarrhea, unspecified CPT copyright 2017 [employer]. All rights reserved. The codes documented in this report are preliminary and upon bottle blower review may be revised to meet current compliance requirements. MD Ana Lilia Stephens MD 08/09/2020 1:27:40 PM This report has been signed electronically. Number of Addenda: 0 Note Initiated On: 08/09/2020 12:52 PM
== END 2020-08-09 15:15 | disposition home or self-care (01) ==
LOC: EN 10:38 → AC 10:39
PROVIDERS: Anesthesiology; PCP Family Medicine; Referring Provider Surgery; Visit Provider Surgery
PROC: 0DJD8ZZ Inspection of Lower Intestinal Tract, Via Natural or Artificial Opening Endoscopic (ICD-10-PCS; CPT 45378; principal; 2020-08-09 11:55)
DX: K29.70 Gastritis, unspecified, without bleeding (principal); K21.9 Gastro-esophageal reflux disease without esophagitis; K64.2 Third degree hemorrhoids; F41.9 Anxiety disorder, unspecified; M19.90 Unspecified osteoarthritis, unspecified site; J45.909 Unspecified asthma, uncomplicated; I10 Essential (primary) hypertension; Z79.51 Long term (current) use of inhaled steroids; Z79.899 Other long term (current) drug therapy; Z20.822 Contact with and (suspected) exposure to COVID-19
CPT/HCPCS: 43239; 45380; 81025; 87426; 88305; 88342; C9803; J7120; J2405

== ENCOUNTER → 2020-08-30 11:48 | Outpatient (CLI) | payer MEDICAID, SELFPAY ==
[2020-08-09 11:04] VITALS: BMI 31.9
--- NOTE | 2020-08-30 11:53 | NM_ITS ---
CLINICAL: 35-year-old female with reported history of abdominal pain. SEMI-SOLID PHASE 99m Tc SULFUR COLLOID GASTRIC EMPTYING STUDY COMPARISON: CT of the abdomen-pelvis report 08/06/2020 FINDINGS: The patient was administered approximately 1.0 mCi of 99m Tc sulfur colloid mixed with oatmeal and consumed per os. Image acquisitions in the anterior-posterior projections for a total of 60 minutes. There is prompt visualization of the stomach. There is no gastroesophageal reflux identified. The raw data T ? emptying was calculated to be 52.96 minutes, (Normal: 12-56 minutes). NM/Gastric Emptying Study IMPRESSION: 1. NORMAL 99m Tc sulfur colloid semi-solid phase (oatmeal) gastric emptying imaging examination. A. There is upper limits of normal, preserved semi-solid phase gastric emptying compared to normal controls with maintained first order kinetics throughout all components of the examination. (Rober et al, J Nucl Med Tech 38: 186, 2010). Electronically Signed: Josue Thomson DO at 7:37 EDT Tel , Service support ,
== END ==
PROVIDERS: PCP Family Medicine; Referring Provider Family Medicine; Visit Provider Family Medicine
DX: R10.13 Epigastric pain (principal); R68.81 Early satiety
CPT/HCPCS: 78264; A9541

== ENCOUNTER → 2020-09-10 12:03 | Outpatient (CLI) | payer MEDICAID, SELFPAY ==
[2020-08-09 11:04] VITALS: BMI 31.9
[2020-09-10 13:07] LABS: Absolute Lymphocyte Count 2.82 X10^3/uL (0.83-4.51); Absolute Neutrophil Count 4.1 X10^3/uL (2.0-7.7); Basophil# 0.01 X10^3/uL; Basophil% 0.1 % (0-1); Eosinophil# 0.12 X10^3/uL; Eosinophils% 1.6 % (0-5); Hematocrit 37.4 % (37-47); Hemoglobin 11.9 g/dL (12.0-15.0); Lymphocyte # 2.82 X10^3/ul (0.83-4.51); Lymphocyte % 37.9 % (19-41); Mean Corp Hgb Conc 31.8 g/dL (32-36); Mean Corpuscular Hgb 26.9 pg (27.0-32.0); Mean Corpuscular Volume 84.6 fL (81-99); Mean Platelet Vol. 9.3 fl (6.2-12.0); Monocyte# 0.38 X10^3/uL; Monocyte% 5.1 % (0-10); NRBC Flagged by Analyzer 0 % (0-5); Neutrophil % 55.2 % (47-70); Platelet Count 315 K/mm3 (150-450); RBC Distribution Width CV 13.5 % (11.6-14.6); RBC Distribution Width SD 41.8 fl (35.1-43.9); Red Blood Count 4.42 M/mm3 (4.2-5.4); White Blood Count 7.4 K/mm3 (4.4-11.0)
[2020-09-10 13:46] LABS: Anion Gap 9 (5-15); BUN 8 mg/dL (7-18); Calcium,Total 8.9 mg/dL (8.5-10.1); Chloride 107 mmol/L (98-107); Creatinine, Serum 0.73 mg/dL (0.55-1.02); EST Glomerular Filtration Rate 95 mL/min (>60); Est Glom Filt Rate - Afr Amer 115 mL/min (>60); Glucose 93 mg/dL (74-106); Magnesium 2.2 mg/dL (1.6-2.6); Potassium 3.7 mmol/L (3.5-5.1); Sodium Level 141 mmol/L (136-145); Uric Acid 5.9 mg/dL (2.6-6.0)
[2020-09-10 13:48] LABS: PTHIN 56.2 pg/mL (18.4-80.1)
[2020-09-10 13:52] LABS: Vitamin D,25 Hydroxy 34.8 ng/mL
[2020-09-11 18:30] LABS: EBV Acute VCA IgM < 36.0 U/mL (0.0-35.9); EBV Nuclear Antigen IgG 40.2 U/mL (0.0-17.9)
== END ==
PROVIDERS: PCP Family Medicine; Visit Provider Family Medicine
DX: N20.0 Calculus of kidney (principal); D72.829 Elevated white blood cell count, unspecified; R59.0 Localized enlarged lymph nodes
CPT/HCPCS: 36415; 80048; 82306; 82330; 83735; 83970; 84550; 85025; 86060; 86664; 86665

== ENCOUNTER 2020-12-03 13:53 | Emergency (ER) | payer MEDICAID, SELFPAY ==
[2020-12-03 13:53] VITALS: BP 127/84; PULSE 71; RESP 18; TEMP 37.3; O2SAT 100; BMI 32.9
--- NOTE | 2020-12-03 15:31 | CT_ITS ---
STUDY: CT BRAIN WITHOUT CONTRAST REASON FOR EXAM: Female, 35 years old. weakness RADIATION DOSAGE (If Supplied By Facility): CTDIvol = ( 44.99 ) mGy, DLP = ( 762.36 ) mGycm TECHNIQUE: Transaxial CT imaging of the brain was performed without administration of intravenous contrast material. Individualized dose optimization techniques were used for this CT. COMPARISON: No relevant priors. FINDINGS: Normal soft tissue structures. Normal calvarium. Normal size ventricles and extra-axial spaces for the patient''s age. Normal white matter tracts of the cerebral hemispheres. Normal basal ganglia and thalami. Normal brainstem. Normal cerebellum. There is no intracranial hemorrhage. There are no findings of an acute ischemic infarction. Normal visualized paranasal sinuses. CT/Brain/Head without Contrast IMPRESSION: Normal unenhanced CT scan of the brain. Electronically Signed: Leonora Shepard MD at 16:21 EDT Tel , Service support ,
--- NOTE | 2020-12-03 15:31 | RAD_ITS ---
STUDY: X-RAY CHEST REASON FOR EXAM: Female, 35 years old. weakness TECHNIQUE: Single AP portable view of the chest. COMPARISON: 08/21/2018. FINDINGS: The lungs are clear and expanded. There is no demonstrated pleural abnormality. Normal size heart. Normal mediastinum and jim. Normal visualized pulmonary arteries. Normal visualized aortic arch and descending thoracic aorta. Normal visualized thoracic spine. Normal visualized ribs, clavicles, and shoulders. There is no demonstrated abnormality of the visualized soft tissue structures of the upper abdomen. RAD/Chest 1 View (Portable) IMPRESSION: Normal x-ray examination of the chest. Electronically Signed: Leonora Shepard MD at 16:23 EDT Tel , Service support ,
--- NOTE | 2020-12-03 15:31 | EKG12_ITS ---
Test Reason : GENERAL ILLNESS Blood Pressure : / mmHG Vent. Rate : 067 BPM Atrial Rate : 067 BPM P-R Int : 136 ms QRS Dur : 088 ms QT Int : 406 ms P-R-T Axes : 028 047 043 degrees QTc Int : 429 ms Normal sinus rhythm Normal ECG Confirmed by BÁRBARA WHARTON, ADY ([id number]), newspaper copy editor JOSEFINA RHODES ([id number]) on 12/05/2020 9:17:52 AM Referred By: TORI/MALINA Confirmed By:ADY GRNAGER MD
--- NOTE | 2020-12-03 15:41 | EDS_ITS ---
HPI History of Present Illness Chief Complaint: Weakness Informant: patient Narrative Narrative: Patient is a 35-year-old female with extensive medical history presenting with generalized weakness. Patient states she has had worsening weakness for the past 5 days. She states she is feels extremely fatigued and is been falling because she is so weak. She states that she can do more than go to the bathroom and eat before she has to go back to sleep. She states has had similar symptoms before when she had palpitations or associated with her menstrual cycle. She is not currently having any palpitations but notes she did start her. 3 days ago. She has been having associated nausea, vomiting and diarrhea for the past 2 days. Her neighbor did recently have Covid and she was around her children. Patient had the first Covid vaccine in May but did not have the second because she had such a severe reaction to it. She also notes that she has been having a burning sensation in her hands I did resolve 2 days ago. But has not been scheduled yet. She denies any fever but states her temperatures been as high as 99.5. No rash. Weakness is diffuse in all of her extremities. She notes that she does have a slight heaviness in her chest but denies any difficulty breathing or shortness of breath. She states she can get into see her primary care doctor and they recommend she come to the emergency room to be evaluated further. [facility] Medical History Acid reflux Anal fissure Anemia Ankylosing spondylitis Anxiety Arthritis Asthma Back pain Diarrhea Diverticulosis Ectopic cardiac beats Edema Endometriosis Endometriosis Exercise-induced asthma Fatigue Gestational diabetes h/o lesion removal Hematochezia Hemorrhoids Hepatic steatosis History of back problems History of fatty infiltration of liver History of steroid therapy Hypertension Irregular heart beat Leg cramps lysis of adensions (~09/2019) Migraine headache Mitral regurgitation Nausea & vomiting Non-smoker Ovarian cyst PCOS (polycystic ovarian syndrome) POTS (postural orthostatic tachycardia syndrome) Prolapse of intestine Rash Reflux involving intestinal tract Restless legs Sinus tachycardia Sinus tachycardia Sleep apnea Symptomatic bradycardia Symptomatic bradycardia Syncope Tachycardia Wears glasses Home Medications multivitamin 1 tab PO DAILY 12/13/17 [History Last Taken 09/17/18] cetirizine 10 mg tablet 10 mg PO DAILY 09/05/19 [History Last Taken Unknown] hydrocortisone 2.5 % topical ointment 1 applic TOPICAL BID #28.35 g 09/05/19 [Rx Last Taken Unknown] albuterol sulfate 1 - 2 puff INHALATION Q6H PRN PRN 10/19/19 [History Last Taken Unknown] belladonna alkaloids-opium 16.2 mg-30 mg rectal suppository 1 supp RC TID PRN #12 ea 01/04/20 [Rx Last Taken Unknown] ondansetron 4 mg PO Q8H PRN PRN #10 tab 04/27/20 [Rx Last Taken Unknown] atenolol 25 mg tablet 25 mg PO DAILY PRN tablet 07/08/20 [History Last Taken Unknown] cholecalciferol (vitamin D3) 1,250 mcg (50,000 unit) capsule 50,000 unit PO FR cap 07/08/20 [History Last Taken Unknown] potassium chloride 20 mEq tablet,extended release 20 meq PO BID tab 08/06/20 [History Last Taken Unknown] tretinoin 0.025 % topical gel 1 applic TOPICAL QHS 08/06/20 [History Last Taken Unknown] oxycodone-acetaminophen 1 tab PO Q6H PRN PRN 2 Days #8 tablet 08/07/20 [Rx Last Taken Unknown] pantoprazole 40 mg PO BID 08/08/20 [History Last Taken Unknown] Allergy/AdvReac Type Severity Reaction Status Date / Time acetaminophen [From Vicodin] Allergy Severe Itching Verified 12/03/20 13:57 cephalexin monohydrate Allergy Severe Anaphylaxis Verified 12/03/20 13:57 [From Keflex] cyclobenzaprine Allergy Severe Mental Verified 12/03/20 13:57 [From Flexeril] status change hydrocodone [From Vicodin] Allergy Severe Itching Verified 12/03/20 13:57 latex Allergy Mild Swelling Verified 12/03/20 13:57 eucalyptus AdvReac Severe tachycardia, Verified 12/03/20 13:57 close airway NSAIDS (Non-Steroidal AdvReac Severe GI upset Verified 12/03/20 13:57 Anti-Inflamma tizanidine AdvReac Severe Low HR Verified 12/03/20 13:57 ciprofloxacin [From Cipro] AdvReac diarrhea, Verified 12/03/20 13:57 nausea, tachycardia doxycycline AdvReac Diarrhea Verified 12/03/20 13:57 Family History Mother Heart disease Hypertension Father Heart disease Diabetes Hypertension Surgical History H/O cystoscopy (~09/2019) H/O dilation and curettage (~09/2019) History of History of hernia repair Hx laparoscopic cholecystectomy (~09/2019) Hx of removal of ovary Social History Smoking Status: Never smoker alcohol intake: never substance use type: does not use caffeine: No what type of physical activity do you participate in: walking frequency: 5-6 times per week seatbelt use: always do you feel safe at home: Yes additional social history: Single- Currently unemployed ROS ROS ED Constitutional Constitutional ED: Denies chills or fever(s) Eyes Eyes: Reports blurry vision left; Denies change in vision ENT ENT ED: Denies ear pain, rhinorrhea or sore throat Cardiovascular Cardiovascular: Denies chest pain or palpitations Respiratory/Chest Respiratory/Chest: Reports dyspnea on exertion; Denies cough or dyspnea Gastrointestinal Gastrointestinal: Reports diarrhea, nausea and vomiting; Denies abdominal pain Genitourinary Genitourinary ED: Denies dysuria or hematuria Musculoskeletal Musculoskeletal: Reports myalgias; Denies arthralgias Integumentary Denies rash Neurologic Neurologic: Reports weakness; Denies headache(s) or paresthesias Psychiatric Psychiatric: Denies anxiety or depression EXAM Physical Exam Const Vital Signs: 12/03/20 13:53 12/03/20 15:24 12/03/20 15:56 Temperature 99.1 F Temperature Source Temporal Pulse Rate 71 78 Pulse Rate [Lying] Pulse Rate [Sitting] Pulse Rate [Standing] Respiratory Rate 18 20 H Respiratory Effort Normal Non-Labored Respiratory Pattern Normal Blood Pressure 127/84 H Blood Pressure [Lying] Blood Pressure [Sitting] Blood Pressure [Standing] Blood Pressure Mean 98 Blood Pressure Mean [Lying] Blood Pressure Mean [Sitting] Blood Pressure Mean [Standing] Pulse Ox 100 99 Oxygen Delivery Method Room Air Room Air 12/03/20 16:11 12/03/20 17:24 Temperature Temperature Source Pulse Rate 71 Pulse Rate [Lying] 70 Pulse Rate [Sitting] 74 Pulse Rate [Standing] 76 Respiratory Rate 16 Respiratory Effort Respiratory Pattern Blood Pressure 112/80 Blood Pressure [Lying] 119/73 Blood Pressure [Sitting] 129/89 H Blood Pressure [Standing] 125/81 H Blood Pressure Mean 90 Blood Pressure Mean [Lying] 88 Blood Pressure Mean [Sitting] 102 Blood Pressure Mean [Standing] 95 Pulse Ox 99 Oxygen Delivery Method Room Air Positive well nourished, well developed and no apparent distress General Appearance ED: well developed HEENT Reports normocephalic, TM's clear and moist mucous membranes atraumatic Nose: no nasal discharge External Ear: external ears normal Tympanic Membrane ED: Yes TM's clear Mouth ED: Yes moist mucous membranes normal Eyes PERRL and EOMs intact bilaterally Neck full ROM, no lymphadenopathy, supple, no meningeal signs and no JVD Chest Wall inspection of chest normal Resp normal respiratory effort, normal air movement and clear to auscultation bi laterally Cardio regular rate, regular rhythm and no murmurs Rate: other Other Details: 2+ DP and radial pulses GI normal to inspection, nondistended, normoactive bowel sounds and non-tender Back/Spine no CVA tenderness Extremity normal to inspection and full ROM General Extremety ED: Negative for edema or tenderness General Extremity: Negative for edema Neuro oriented x3, CN's II-XII intact bilaterally, no focal motor deficits and no sensory deficits noted Neuro Narrative: Normal coordination, normal 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 Normal plantar dorsiflexion. Sensorium / Orientation: alert Motor Exam: strength 5/5 throughout Psych mental status grossly normal and thought process normal Skin no rashes or lesions noted and no wounds MDM MDM MDM Narrative Medical decision making narrative: Patient is evaluated for generalized weakness, falls, chest heaviness, nausea vomiting and diarrhea. Patient appears nontoxic. She is hemodynamically stable. Orthostatics are negative. EKG does not show any acute ischemic changes. She is low risk for DVT/PE and she is PE RC negative. TSH as well as CPK are normal. There is no signs of infection. Urinalysis does show red blood cells however I believe this is menstrual contamination. No signs of acute infection and she has a normal white blood cell count with normal differential. A Covid test is negative. Chest x-ray is normal. CT of the brain does not show any acute process. Patient will follow up with her PCP for further evaluation of this. She has an outpatient MRI to be scheduled. She is counseled on return precautions. She is no she does have some mild nausea and acid reflux while in the ER and is given a dose of Zofran. She will take Zofran and antacids which she has at home as needed. Patient is counseled on signs and symptoms requiring return to the emergency room. Patient verbalizes agreement and understand this plan. Patient discharged home in stable and improved condition. Lab Data Attestation: I reviewed the patient's lab results. Labs: Laboratory Results - last 24 hr 12/03/20 12/03/20 12/03/20 14:35 14:35 15:00 WBC 9.3 RBC 4.58 Hgb 12.6 Hct 39.8 MCV 86.9 MCH 27.5 MCHC 31.7 L RDW Std Deviation 42.5 RDW Coeff of Karon 13.4 Plt Count 359 MPV 9.5 Immature Gran % (Auto) 0.400 Neut % (Auto) 64.1 Lymph % (Auto) 28.8 [place] % (Auto) 5.1 Eos % (Auto) 1.4 Baso % (Auto) 0.2 Absolute Neuts (auto) 6.0 Absolute Lymphs (auto) 2.68 Nucleated RBC % 0 Sodium 138 Potassium 4.0 Chloride 107 Carbon Dioxide 27.0 Anion Gap 4 L BUN 9 Creatinine 0.69 Estim Creat Clear Calc 88.29 Est GFR (MDRD) Af Amer 123 Est GFR (MDRD) Non-Af 102 BUN/Creatinine Ratio 13.1 Glucose 106 Calcium 9.6 Magnesium 2.4 Total Creatine Kinase 42 TSH 0.65 Urine Color Straw Urine Clarity Clear Urine pH 6.0 Ur Specific [place] 1.010 Urine Protein Negative Urine Glucose (UA) Normal Urine Ketones Negative Urine Occult Blood 250 H Urine Nitrite Negative Urine Bilirubin Negative Urine Urobilinogen Normal Ur Leukocyte Esterase Negative Urine RBC 0-5 SEEN Urine WBC 0 SEEN Ur Squamous Epith Cells 0 SEEN Urine Bacteria 0 SEEN Urine Mucus 0 SEEN Radiography Chest X-Ray - ED: 1 View, Read by ED Physician, Read by Radiologist and No Acute Disease Diagnostic Testing: Radiology Impression Brain CT 12/03/20 15:31 IMPRESSION: Normal unenhanced CT scan of the brain. Electronically Signed: Leonora Shepard MD at 16:21 EDT Tel , Service support , Chest X-Ray 12/03/20 15:31 IMPRESSION: Normal x-ray examination of the chest. Electronically Signed: Leonora Shepard MD at 16:23 EDT Tel , Service support , Rhythm Strip Rhythm Strip: Sinus Rhythm Rate: 67 Ectopy: None EKG Initial EKG: Attestation: I personally reviewed and interpreted this EKG as follows: Interpretation: Sinus Rhythm Comments: Normal sinus rhythm rate of 67 Normal axis Normal intervals Normal ST segments Discharge Plan Triage Chief Complaint: Weakness ED Provider: Elissa Aguilar Dx/Rx/DC Orders Clinical Impression: Weakness generalized, Falls, Malaise and fatigue Instructions: ED Chest Pain, Uncertain Cause, ED Weakness (Uncertain Cause) Prescriptions: No Action multivitamin tablet 1 tab PO DAILY RF: 0 cetirizine [Zyrtec] 10 mg tablet 10 mg PO DAILY RF: 0 hydrocortisone 2.5 % ointment 1 applic TOPICAL BID Qty: 28.35 RF: 1 cholecalciferol (vitamin D3) 1,250 mcg (50,000 unit) capsule 50,000 unit PO FR RF: 0 atenolol 25 mg tablet 25 mg PO DAILY PRN (Reason: PER SYMPTOMS) RF: 0 tretinoin 0.025 % gel 1 applic topical QHS RF: 0 potassium chloride 20 mEq tablet extended release 20 meq PO BID RF: 0 albuterol sulfate 1 INHALER inhaler 1 - 2 puff INHALATION Q6H PRN PRN (Reason: Asthma) RF: 0 ondansetron 4 MG tablet 4 mg PO Q8H PRN PRN (Reason: Nausea) Qty: 10 RF: 0 oxycodone-acetaminophen [oxycodone-acetaminophen] 1 TABLET tablet 1 tab PO Q6H PRN PRN (Reason: Pain) 2 Days Qty: 8 RF: 0 pantoprazole 40 mg tablet,delayed release (DR/EC) 40 mg PO BID RF: 0 belladonna alkaloids-opium 16.2 mg-30 mg rectal suppository 16.2-30 mg suppository 1 supp RC TID PRN (Reason: pain) Qty: 12 RF: 0 Primary Care Provider: Anant Curran Referrals: Anant Curran, [Primary Care Provider] - Disposition Disposition: Home, Self Care
[2020-12-03 15:45] LABS: Absolute Lymphocyte Count 2.68 X10^3/uL (0.83-4.51); Basophil# 0.02 X10^3/uL; Basophil% 0.2 % (0-1); Eosinophil# 0.13 X10^3/uL; Eosinophils% 1.4 % (0-5); Hematocrit 39.8 % (37-47); Hemoglobin 12.6 g/dL (12.0-15.0); Lymphocyte # 2.68 X10^3/ul (0.83-4.51); Lymphocyte % 28.8 % (19-41); Mean Corp Hgb Conc 31.7 g/dL (32-36); Mean Corpuscular Hgb 27.5 pg (27.0-32.0); Mean Corpuscular Volume 86.9 fL (81-99); Mean Platelet Vol. 9.5 fl (6.2-12.0); Monocyte# 0.47 X10^3/uL; Monocyte% 5.1 % (0-10); NRBC Flagged by Analyzer 0 % (0-5); Neutrophil # 5.95 X10^3/uL (2.7-7.7); Neutrophil % 64.1 % (47-70); Platelet Count 359 K/mm3 (150-450); RBC Distribution Width CV 13.4 % (11.6-14.6); RBC Distribution Width SD 42.5 fl (35.1-43.9); Red Blood Count 4.58 M/mm3 (4.2-5.4); White Blood Count 9.3 K/mm3 (4.4-11.0)
[2020-12-03 15:52] LABS: Bacteria 0 SEEN /hpf (None Seen); Mucous, Urine 0 SEEN /hpf (<or=2+); Squamous Epithelial Cells - UA 0 SEEN /hpf (5-10); White Blood Cells 0 SEEN /hpf (0-5)
[2020-12-03 15:53] LABS: Color, Urine Straw (Yellow); Glucose, Dipstick Normal (Normal); Ketone-Dipstick Negative (Negative); Leukocyte Esterase-Dipstick Negative /ul (Negative); Nitrite-Dipstick Negative (Negative); Occult Blood-Urine 250 /ul (Negative); Protein-Dipstick Negative (Negative); Urine Bilirubin Dipstick Negative (Negative); Urine Clarity Clear (Clear); Urine Urobilinogen Normal (Normal)
[2020-12-03 15:56] VITALS: PULSE 78; RESP 20; O2SAT 99
[2020-12-03 16:01] LABS: Red Blood Cells-Urine 0-5 SEEN /hpf (0-5)
[2020-12-03 16:03] LABS: Anion Gap 4 (5-15); BUN 9 mg/dL (7-18); BUN/Creat Ratio 13.1 RATIO (10-20); CPK Total, Creatine Kinase 42 U/L (26-192); Calcium,Total 9.6 mg/dL (8.5-10.1); Chloride 107 mmol/L (98-107); Creatinine, Serum 0.69 mg/dL (0.55-1.02); EST Glomerular Filtration Rate 102 mL/min (>60); Est Glom Filt Rate - Afr Amer 123 mL/min (>60); Estimated Creatinine Clearance 88.29 ml/min; Glucose 106 mg/dL (74-106); Magnesium 2.4 mg/dL (1.6-2.6); Sodium Level 138 mmol/L (136-145); Thyroid Stim Hormone (TSH) 0.65 uIU/mL (0.358-3.74)
[2020-12-03 16:11] VITALS: BP 119/73; BP 125/81; BP 129/89; PULSE 70; PULSE 74; PULSE 76
[2020-12-03 17:24] VITALS: BP 112/80; PULSE 71; RESP 16; O2SAT 99
[2020-12-03] MEDS: Ondansetron 4 MG/2 ML Vial IV (18:38)
[2020-12-03 18:39] VITALS: BP 114/66; PULSE 66; RESP 17; O2SAT 100
== END 2020-12-03 18:43 | disposition home or self-care (01) ==
PROVIDERS: Emergency Provider Emergency Medicine; PCP Family Medicine
DX: R53.1 Weakness (principal); R53.81 Other malaise; R53.83 Other fatigue; K21.9 Gastro-esophageal reflux disease without esophagitis; F41.9 Anxiety disorder, unspecified; M19.90 Unspecified osteoarthritis, unspecified site; J45.990 Exercise induced bronchospasm; I10 Essential (primary) hypertension; Z79.51 Long term (current) use of inhaled steroids; Z79.899 Other long term (current) drug therapy
CPT/HCPCS: 70450; 71045; 80048; 81001; 82550; 83735; 84443; 85025; 87426; 93005; 96374; 99285; A4216; J2405

== ENCOUNTER → 2020-12-05 11:58 | Outpatient (CLI) | payer MEDICAID, SELFPAY ==
[2020-12-18 12:20] LABS: ACHR AB Modulating <12 % (0-20); ACHR Recep AB, Blocking 19 % (0-25); Acetylcholine Receptor Binding < 0.03 nmol/L (0.00-0.24)
== END ==
PROVIDERS: PCP Family Medicine; Visit Provider Family Medicine
DX: R53.1 Weakness (principal)
CPT/HCPCS: 36415; 83519; 84238

== ENCOUNTER → 2020-12-11 15:28 | Outpatient (CLI) | payer MEDICAID, SELFPAY ==
--- NOTE | 2020-12-11 15:33 | MRI_ITS ---
STUDY: MRI CERVICAL SPINE WITH AND WITHOUT CONTRAST REASON FOR EXAM: Female, 35 years old. BLURRED VISION, FATIGUE,DYSAUTONOMIA,URINARY FREQ.CLONUS TECHNIQUE: Standardized fat and water weighted pulse sequences were obtained in the sagittal and axial following administration of 17ML IV DOTAREM. COMPARISON: None FINDINGS: Normal foramen magnum and brainstem-cervical cord junction. Normal cervical lordosis. C2-3: Normal endplates. Normal disc height, signal and morphology. Normal central canal and intervertebral neural foramina. C3-4: Normal endplates. Normal disc height, signal and morphology. Normal central canal and intervertebral neural foramina. C4-5: Normal endplates. Normal disc height, signal and morphology. Normal central canal and intervertebral neural foramina. C5-6: There is minimal disc space narrowing and endplate spondylosis. There is no significant disc herniation, central canal or foraminal stenosis. C6-7: There is mild disc space narrowing and endplates spondylosis. Mild disc osteophyte complex with mild central canal stenosis. Uncovertebral and facet arthropathy with mild right and mild left foraminal stenosis. C7-T1: Normal endplates. Normal disc height, signal and morphology. Normal central canal and intervertebral neural foramina. Normal cervical cord. There is no abnormal enhancement. MRI/Spine Cervical W/WO Contrast IMPRESSION: C6/C7: Mild degenerative changes. Electronically Signed: Anette Dubose MD at 15:46 EDT Tel , Service support ,
--- NOTE | 2020-12-11 15:35 | MRI_ITS ---
STUDY: MRI BRAIN WITH AND WITHOUT CONTRAST REASON FOR EXAM: Female, 35 years old. BLURRED VISION, FATIGUE,DYSAUTONOMIA,URINARY FREQ.CLONUS TECHNIQUE: Standardized multiplanar fat and water weighted pulse sequences were obtained. 17ML IV DOTAREM was administered for the contrast portion of the examination. COMPARISON: CT of the brain 12/03/2020 MRI of the brain 12/03/2016 FINDINGS: Normal size of the ventricles and extra-axial spaces for the patient''s age. Normal white matter tracts of the supratentorial brain. Normal bilateral basal ganglia. Normal thalami. There is no extra-axial fluid accumulation. Normal flow voids within the major intracranial circulation suggesting patency by spin echo criteria. Normal venous enhancement. There is no enhancing intra-axial or extra-axial abnormality. Normal sella turcica, pituitary gland, infundibular stalk, optic chiasm and hypothalamus. Normal tectal plate and pineal gland. Normal midbrain, sarath and medulla. Normal cerebellum. Normal basal cisterns. Normal bilateral temporal bones. Normal bilateral internal auditory canals. No demonstrated orbital abnormality, within the constraints of a routine brain study. Normal visualized paranasal sinuses. Normal calvarium and skull base. Normal visualized soft tissue structures. Normal visualized upper cervical spine. No significant change since prior exam MRI/Brain W/WO Contrast IMPRESSION: Normal unenhanced and enhanced MRI of the brain. Electronically Signed: Arvind Lovett MD at 18:22 EDT , Service support ,
== END ==
PROVIDERS: PCP Family Medicine; Referring Provider Family Medicine; Visit Provider Family Medicine
DX: H53.8 Other visual disturbances (principal); R53.83 Other fatigue; R20.2 Paresthesia of skin; R35.0 Frequency of micturition
CPT/HCPCS: 70553; 72156; A9575

== ENCOUNTER → 2021-01-31 15:22 | Outpatient (CLI) | payer MEDICAID, SELFPAY ==
--- NOTE | 2021-01-31 15:24 | RAD_ITS ---
STUDY: X-RAY - LUMBAR SPINE REASON FOR EXAM: Female, 35 years old. BACK PAIN TECHNIQUE: 3 view(s) of the lumbar spine were obtained. COMPARISON: None FINDINGS: Normal lumbar lordosis. There is no substantial scoliosis. There is a normal alignment of the vertebrae. No evidence for acute fracture or subluxation. No lytic or sclerotic bony lesions.. Disc spaces are well-maintained however there is minor endplate spurring at L3-4 and L4-5 The soft tissue structures are unremarkable. RAD/Lumbar Spine 2 or 3 Views IMPRESSION: Mild spondylosis. No acute fracture or other significant bony pathology Electronically Signed: Arvind Lovett MD at 16:19 EDT , Service support ,
--- NOTE | 2021-01-31 15:24 | RAD_ITS ---
STUDY: X-RAY - SACRUM/COCCYX REASON FOR EXAM: Female, 35 years old. PAIN TECHNIQUE: 3 view(s) of the sacrum and coccyx were obtained. COMPARISON: None. FINDINGS: Normal bilateral sacroiliac joints. Normal visualized sacral ala and fused sacral bodies. Normal sacrococcygeal junction with a normal angulation. Normal coccygeal segments. The presacral soft tissue structures are unremarkable. RAD/Sacrum-Coccyx min 2 Views IMPRESSION: Normal x-rays of the sacrum and coccyx. Electronically Signed: Arvind Lovett MD at 16:18 EDT , Service support ,
== END ==
PROVIDERS: PCP Family Medicine; Referring Provider Anesthesiology Pain Medicine; Visit Provider Anesthesiology Pain Medicine
DX: M54.50 Low back pain, unspecified (principal)
CPT/HCPCS: 72100; 72220

== ENCOUNTER 2021-02-12 09:53 | Emergency (ER) | payer MEDICAID, SELFPAY ==
[2021-02-12 09:54] VITALS: BP 136/90; PULSE 84; RESP 16; TEMP 37.6; O2SAT 99; BMI 32.8
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
--- NOTE | 2021-02-12 11:05 | RAD_ITS ---
STUDY: X-RAY - RIGHT WRIST REASON FOR EXAM: Female, 35 years old. Injury/Pain TECHNIQUE: 3 view(s) of the wrist were obtained. COMPARISON: None. FINDINGS: Normal visualized distal radius and ulna. Normal radiocarpal articulation. Normal distal radioulnar articulation. Normal carpal bones. Normal carpal articulations. Normal carpometacarpal articulation of the thumb. Normal second through fifth carpometacarpal articulations. Normal visualized metacarpal bones. The soft tissue structures are unremarkable. RAD/Wrist min 3 Views IMPRESSION: Normal x-ray examination of the wrist. Electronically Signed: Darrel Dunbar MD at 11:58 EST , Service support ,
[2021-02-12] MEDS: Acetaminophen 500 MG Tablet 1000 MG PO (11:21)
[2021-02-12 11:37] LABS: Bacteria 0 SEEN /hpf (None Seen); Mucous, Urine 0 SEEN /hpf (<or=2+); Red Blood Cells-Urine 0 SEEN /hpf (0-5); White Blood Cells 0 SEEN /hpf (0-5)
[2021-02-12 11:39] LABS: Color, Urine Straw (Yellow); Glucose, Dipstick Normal (Normal); Ketone-Dipstick Negative (Negative); Leukocyte Esterase-Dipstick Negative /ul (Negative); Nitrite-Dipstick Negative (Negative); Occult Blood-Urine Negative /ul (Negative); Protein-Dipstick Negative (Negative); Urine Bilirubin Dipstick Negative (Negative); Urine Clarity Clear (Clear); Urine Urobilinogen Normal (Normal)
[2021-02-12 11:52] LABS: Squamous Epithelial Cells - UA 0-5 SEEN /hpf (5-10)
[2021-02-12 12:30] VITALS: RESP 14
== END 2021-02-12 12:34 | disposition home or self-care (01) ==
PROVIDERS: Emergency Provider Emergency Medicine; PCP Family Medicine
DX: B35.4 Tinea corporis (principal); M79.10 Myalgia, unspecified site; Z04.1 Encounter for examination and observation following transport accident; K21.9 Gastro-esophageal reflux disease without esophagitis; F41.9 Anxiety disorder, unspecified; M19.90 Unspecified osteoarthritis, unspecified site; J45.909 Unspecified asthma, uncomplicated; I10 Essential (primary) hypertension; Z79.51 Long term (current) use of inhaled steroids; Z79.899 Other long term (current) drug therapy; V43.52XA Car driver injured in collision with other type car in traffic accident, initial encounter; Y93.I9 Activity, other involving external motion; Y92.410 Unspecified street and highway as the place of occurrence of the external cause; Y99.8 Other external cause status
CPT/HCPCS: 73110; 81001; 99283

== ENCOUNTER 2021-04-28 18:19 | Outpatient (CLI) | payer MEDICAID, SELFPAY | END 2021-04-28 23:59 | disposition short-term general hospital (02) | PROVIDERS: PCP Family Medicine; Referring Provider Family Medicine; Visit Provider Family Medicine | DX: Z20.822 Contact with and (suspected) exposure to COVID-19 (principal) | CPT/HCPCS: 87635; U0003; U0005 ==

== ENCOUNTER 2021-05-04 19:31 | Emergency (ER) | payer MEDICAID, SELFPAY ==
[2021-05-04 19:33] VITALS: BP 138/79; PULSE 94; RESP 16; TEMP 36.9; O2SAT 100; BMI 32.9
--- NOTE | 2021-05-04 19:35 | RAD_ITS ---
HISTORY: Shortness of breath, cough, COVID positive for 1 week EXAMINATION/TECHNIQUE: XR Chest 1 View COMPARISON: None FINDINGS: LINES/DEVICES: None. LUNGS: No focal airspace consolidation. No pulmonary edema. No pleural effusion. No pneumothorax. MEDIASTINUM AND CARDIOVASCULAR STRUCTURES: Cardiac silhouette not enlarged. Central airways and mediastinal contour are unremarkable. BONES AND SOFT TISSUES: No acute findings. RAD/Chest 1 View IMPRESSION: No radiographic evidence of acute cardiopulmonary disease. at 2004 Reported and signed by: Anant Contreras MD Electronically Signed: Anant Contreras MD at 20:03 EST ,
[2021-05-04 21:11] VITALS: O2SAT 98
[2021-05-04] MEDS: Ketorolac 15 MG/ML Vial IM (21:13)
[2021-05-04] MEDS: Ondansetron ODT 4 MG Tablet PO (21:14)
--- NOTE | 2021-05-04 21:15 | ED.VIS.DYS ---
HPI <HARVINDER Nuñez - Last Filed: 05/04/21 21:49> History of Present Illness Chief Complaint: Shortness of Breath Narrative Narrative: 35-year-old female with PMH of lupus, ankylosing spondylitis, PCOS, POTS presents with Covid. She has been symptomatic for 8 days with fever, chills, nausea, and dry cough. A day after her illness started she started Augmentin and dexamethasone from her PCP. She completed the antibiotic but only took the steroid for 1 day because it gave her insomnia. She states normally she is on budesonide daily for autoimmune problems. Over the last 3 days she developed chest tightness and dyspnea that is worse with lying down. She denies exertional pain or dyspnea. She states it feels like when she had childhood asthma but she has not had to use inhalers in several years. She denies smoking. She is COVID vaccinated x1. She denies history of DVT/PE or risk factors. PFS <HARVINDER Nuñez - Last Filed: 05/04/21 21:49> [facility] Medical History (Updated 05/04/21 @ 21:45 by HARVINDER Nuñez) Acid reflux Anal fissure Anemia Ankylosing spondylitis Anxiety Arthritis Asthma Back pain Diarrhea Diverticulosis Ectopic cardiac beats Edema Endometriosis Exercise-induced asthma Fatigue h/o lesion removal Hematochezia Hemorrhoids Hepatic steatosis History of back problems History of fatty infiltration of liver History of Lyme disease History of steroid therapy Hypertension Irregular heart beat Leg cramps lysis of adensions (~09/2019) Migraine headache Mitral regurgitation Non-smoker Ovarian cyst PCOS (polycystic ovarian syndrome) POTS (postural orthostatic tachycardia syndrome) Prolapse of intestine Rash Reflux involving intestinal tract Restless legs Sinus tachycardia Sinus tachycardia Sleep apnea Symptomatic bradycardia Symptomatic bradycardia Syncope Tachycardia Wears glasses Home Medications multivitamin 1 tab PO DAILY 12/13/17 [History Last Taken 09/17/18] cetirizine 10 mg tablet 10 mg PO DAILY 09/05/19 [History Last Taken Unknown] albuterol sulfate 1 - 2 puff INHALATION Q6H PRN PRN 10/19/19 [History Last Taken Unknown] belladonna alkaloids-opium 16.2 mg-30 mg rectal suppository 1 supp RC TID PRN #12 ea 01/04/20 [Rx Last Taken Unknown] atenolol 25 mg tablet 25 mg PO DAILY PRN tablet 04/12/21 [History Last Taken Unknown] potassium chloride 20 mEq tablet,extended release 20 meq PO BID tab 08/06/20 [History Last Taken Unknown] lorazepam 1 mg tablet 1 mg PO TID PRN #30 tab 01/23/21 [Rx Last Taken Unknown] baclofen 10 mg tablet 10 mg PO BID PRN #60 tab 02/10/21 [Rx Last Taken Unknown] pantoprazole 40 mg tablet,delayed release 40 mg PO BID PRN 02/10/21 [History Last Taken Unknown] ketoconazole 1 applic TOPICAL BID 21 Days #30 g 02/12/21 [Rx Last Taken Unknown] ondansetron 4 mg disintegrating tablet 4 mg PO Q8H PRN #90 tab 04/18/21 [Rx Last Taken Unknown] rifaximin 550 mg tablet 550 mg PO TID #42 tab 04/18/21 [Rx Last Taken Unknown] sumatriptan succinate 50 mg tablet 50 mg PO .COMPLEX #9 tab 04/22/21 [Rx Last Taken Unknown] ondansetron 4 mg PO Q8H PRN PRN #12 tab 05/04/21 [Rx Last Taken Unknown] Allergy/AdvReac Type Severity Reaction Status Date / Time acetaminophen [From Vicodin] Allergy Severe Itching Verified 05/04/21 19:35 cephalexin monohydrate Allergy Severe Anaphylaxis Verified 05/04/21 19:35 [From Keflex] cyclobenzaprine Allergy Severe Mental Verified 05/04/21 19:35 [From Flexeril] status change hydrocodone [From Vicodin] Allergy Severe Itching Verified 05/04/21 19:35 latex Allergy Mild Swelling Verified 05/04/21 19:35 eucalyptus AdvReac Severe tachycardia, Verified 05/04/21 19:35 close airway NSAIDS (Non-Steroidal AdvReac Severe GI upset Verified 05/04/21 19:35 Anti-Inflamma tizanidine AdvReac Severe Low HR Verified 05/04/21 19:35 ciprofloxacin [From Cipro] AdvReac diarrhea, Verified 05/04/21 19:35 nausea, tachycardia doxycycline AdvReac Diarrhea Verified 05/04/21 19:35 Family History Mother Heart disease Hypertension Father Heart disease Diabetes Hypertension Surgical History H/O cystoscopy (~09/2019) H/O dilation and curettage (~09/2019) History of History of hernia repair Hx laparoscopic cholecystectomy (~09/2019) Hx of removal of ovary Social History Smoking Status: Never smoker Electronic Cigarette Use: not used second hand exposure: No alcohol intake: never substance use type: does not use caffeine: No what type of physical activity do you participate in: walking frequency: 5-6 times per week seatbelt use: always do you feel safe at home: Yes additional social history: Single- Currently unemployed ROS <HARVINDER Nuñez - Last Filed: 05/04/21 21:49> ROS ED ROS Narrative Constitutional: Positive for fever, chills, malaise. Eyes: Negative for visual change. ENT: Positive for rhinorrhea. Negative for sore throat, ear pain. CVS: Negative for palpitations, chest pain, syncope. Respiratory: Positive for shortness of breath, cough. GI: Positive for nausea, diarrhea. Negative for abdominal pain, vomiting, constipation, melena, hematochezia. : Negative for dysuria, hematuria or frequency. Neuro: Negative for headache, motor/sensory dysfunction. Skin: Negative for rash, abscess, or wound. Musc: Negative for joint pain, swelling, trauma. Heme: Negative for easy bruising, bleeding, lymphadenopathy. EXAM <HARVINDER Nuñez - Last Filed: 05/04/21 21:49> Physical Exam Narrative Exam Narrative: Exam Narrative: CONST: Patient sitting in no acute distress. EYES: Normal inspection. ENT: Normal inspection, moist mucous membranes. NECK: Normal inspection. RESP: No respiratory distress, CTAB. CVS: Regular rate and rhythm, no murmur, no gallop. ABD: Soft and nontender, no guarding or rebound, nondistended. SKIN: Color normal, no rash, warm, dry, intact. EXTREMITIES: Normal appearance, no pedal edema, no calf tenderness. NEURO: Oriented x4. PSYCH: Normal affect. Const Vital Signs: 05/04/21 19:33 05/04/21 21:11 05/04/21 21:35 Temperature 98.4 F Temperature Source Temporal Pulse Rate 94 91 Respiratory Rate 16 18 Respiratory Effort Normal Respiratory Depth Normal Respiratory Pattern Normal Blood Pressure 138/79 H Blood Pressure Mean 98 Pulse Ox 100 94 Oxygen Delivery Method Room Air Room Air Room Air <Dr. Ceci Rivera MD - Last Filed: 05/04/21 21:38> Physical Exam Const Vital Signs: 05/04/21 19:33 05/04/21 21:11 05/04/21 21:35 Temperature 98.4 F Temperature Source Temporal Pulse Rate 94 91 Respiratory Rate 16 18 Respiratory Effort Normal Respiratory Depth Normal Respiratory Pattern Normal Blood Pressure 138/79 H Blood Pressure Mean 98 Pulse Ox 100 94 Oxygen Delivery Method Room Air Room Air Room Air MDM <HARVINDER Nuñez - Last Filed: 05/04/21 21:49> MDM MDM Narrative Medical decision making narrative: Medical decision making narrative: Patient is Covid positive x8 days presenting with chest tightness and dyspnea and dry cough. She appears ill but nontoxic. Vital signs are within normal limits. 100% on room air. Her medical exam is unremarkable. Chest x-ray shows no acute process. At this time with normal vital signs and benign exam there is no indication for emergent blood work. I have low concern for PE especially as she has no pleuritic or exertional chest pain and states her breathing is really only worse with lying down. She was treated symptomatically with IVF, Toradol, Zofran, and albuterol inhaler. I will prescribe Zofran and an inhaler for home and she will continue to take Tylenol. Patient was counseled to return for new or worsening symptoms and was discharged in stable condition. Diagnosis 1. COVID-19 Radiography Diagnostic Testing: Clinical Impression(s) from Imaging Studies Chest X-Ray 05/04/21 19:35 IMPRESSION: No radiographic evidence of acute cardiopulmonary disease. at 2004 Reported and signed by: Anant Contreras MD Electronically Signed: Anant Contreras MD at 20:03 EST , <Dr. Ceci Rivera MD - Last Filed: 05/04/21 21:38> MDM Radiography Diagnostic Testing: Clinical Impression(s) from Imaging Studies Chest X-Ray 05/04/21 19:35 IMPRESSION: No radiographic evidence of acute cardiopulmonary disease. at 2004 Reported and signed by: Anant Contreras MD Electronically Signed: Anant Contreras MD at 20:03 EST , Treatment and Re-Evaluation Comments:: Patient seen and evaluated with physician learning disabilities specialist. Patient independently interviewed and examined. Patient presents on day 8 of Covid. She reports slightly increased shortness of breath with cough and feeling as if she is wheezing. She reports some burning tightness in her chest. Physical exam Patient sitting upright in bed no acute distress. She is nontoxic-appearing. O2 sat is 100% on room air at the time of my exam. Head neck examination unremarkable. Heart is regular rate and rhythm. Lung sounds are clear with good air movement. Abdomen is soft nontender. Neuro exam normal. Patient's chest x-ray reveals no focal infiltrate. Radiology to rotation is also reviewed. Patient was given supportive treatment with Toradol, albuterol inhaler, Zofran. Continued supportive care will be encouraged at home. Return instructions provided. Discharge Plan Triage Chief Complaint: Shortness of Breath ED Provider: Shwetha Kimbrough Dx/Rx/DC Orders Clinical Impression: COVID-19, Acute dyspnea Instructions: Coronavirus Disease 2019 (COVID-19): Caring for Yourself or Others Prescriptions: New ondansetron 4 mg tablet,disintegrating 4 mg PO Q8H PRN PRN (Reason: Nausea) Qty: 12 RF: 0 No Action multivitamin tablet 1 tab PO DAILY RF: 0 cetirizine [Zyrtec] 10 mg tablet 10 mg PO DAILY RF: 0 atenolol 25 mg tablet 25 mg PO DAILY PRN (Reason: PER SYMPTOMS) RF: 0 potassium chloride 20 mEq tablet extended release 20 meq PO BID RF: 0 lorazepam [Ativan] 1 mg tablet 1 mg PO TID PRN (Reason: anxiety) Qty: 30 RF: 0 baclofen 10 mg tablet 10 mg PO BID PRN (Reason: muscle pain) Qty: 60 RF: 2 sumatriptan succinate 50 mg tablet 50 mg PO .COMPLEX Qty: 9 RF: 3 ondansetron 4 mg tablet,disintegrating 4 mg PO Q8H PRN (Reason: nausea and vomiting) Qty: 90 RF: 1 Xifaxan 550 mg tablet 550 mg PO TID Qty: 42 RF: 2 albuterol sulfate 1 INHALER inhaler 1 - 2 puff INHALATION Q6H PRN PRN (Reason: Asthma) RF: 0 pantoprazole 40 mg tablet,delayed release (DR/EC) 40 mg PO BID PRN (Reason: gerd) RF: 0 ketoconazole 2 % cream 1 applic topical BID 21 Days Qty: 30 RF: 0 belladonna alkaloids-opium 16.2 mg-30 mg rectal suppository 16.2-30 mg suppository 1 supp RC TID PRN (Reason: pain) Qty: 12 RF: 0 Primary Care Provider: Anant Curran Referrals: Anant Curran DO [Primary Care Provider] - Activity Restrictions/Additional Instructions: Rest, drink fluids, and continue Tylenol. I prescribed an NSAID Gene for nausea and vomiting and an inhaler. Return to the ER for worsening chest pain or shortness of breath. Disposition Disposition: Home, Self Care
[2021-05-04 21:35] VITALS: PULSE 91; RESP 18; O2SAT 94
[2021-05-04] MEDS: 0.9% Normal Saline 1,000 ML 999 ML IV (22:04)
[2021-05-04 22:07] VITALS: BP 132/74; PULSE 83; RESP 17; TEMP 37; O2SAT 96
[2021-05-04 23:02] VITALS: PULSE 88; O2SAT 99
[2021-05-04 23:03] VITALS: O2SAT 97; O2SAT 98
== END 2021-05-04 23:13 | disposition home or self-care (01) ==
PROVIDERS: Emergency Provider Physician Assistant; PCP Family Medicine; Visit Provider Physician Assistant
DX: U07.1 COVID-19 (principal); M32.9 Systemic lupus erythematosus, unspecified; M45.9 Ankylosing spondylitis of unspecified sites in spine; I10 Essential (primary) hypertension; E28.2 Polycystic ovarian syndrome; I49.8 Other specified cardiac arrhythmias; F41.9 Anxiety disorder, unspecified; J45.909 Unspecified asthma, uncomplicated; Z87.19 Personal history of other diseases of the digestive system; K76.0 Fatty (change of) liver, not elsewhere classified; Z79.899 Other long term (current) drug therapy
CPT/HCPCS: 71045; 96360; 96372; 99284; J7030

== ENCOUNTER 2021-05-15 08:23 | Outpatient (CLI) | payer MEDICAID, SELFPAY ==
[2021-05-15 09:35] LABS: Erythrocyte Sedimentation Rate 6 mm/hr (0-30)
[2021-05-15 09:36] LABS: Mean Corp Hgb Conc 33.3 g/dL (32-36); Mean Corpuscular Hgb 28.2 pg (27.0-32.0); Mean Corpuscular Volume 84.6 fL (81-99); Mean Platelet Vol. 9.4 fl (6.2-12.0); Platelet Count 350 K/mm3 (150-450); RBC Distribution Width CV 13.2 % (11.6-14.6); RBC Distribution Width SD 40.9 fl (35.1-43.9); Red Blood Count 4.61 M/mm3 (4.2-5.4); White Blood Count 8.1 K/mm3 (4.4-11.0)
[2021-05-15 09:51] LABS: Vitamin B12 839 pg/mL (211-911)
[2021-05-15 10:31] LABS: ALB/GLOB Ratio 0.9 RATIO (0.9-2.4); AST(SGOT) 26 U/L (15-37); Alanine Aminotransfer ALT/SGPT 30 U/L (13-56); Albumin, Serum 3.7 g/dL (3.2-5.0); Alkaline Phosphatase 82 U/L (45-117); Anion Gap 7 (5-15); BUN 8 mg/dL (7-18); BUN/Creat Ratio 9.8 RATIO (10-20); CRP 9.19 mg/L (0.0-3.0); Calcium,Total 8.9 mg/dL (8.5-10.1); Chloride 105 mmol/L (98-107); Creatinine, Serum 0.82 mg/dL (0.55-1.02); EST Glomerular Filtration Rate 84 mL/min (>60); Est Glom Filt Rate - Afr Amer 101 mL/min (>60); Glucose 93 mg/dL (74-106); Potassium 3.7 mmol/L (3.5-5.1); Protein, Total 7.7 g/dL (6.4-8.2); Sodium Level 139 mmol/L (136-145)
[2021-05-16 16:04] LABS: ANTINUCLEAR ANTIBODIES DIRECT Negative (Negative)
[2021-05-16 16:10] LABS: Aldolase 4.1 U/L (3.3-10.3); Free Kappa Light Chains 15.7 mg/L (3.3-19.4); Free Lambda Light Chains 15.5 mg/L (5.7-26.3)
[2021-05-16 18:36] LABS: Myoglobin, Serum < 21 ng/mL (25-58)
== END 2021-05-15 23:59 | disposition home or self-care (01) ==
LOC: LAB 08:31
PROVIDERS: PCP Family Medicine; Visit Provider Psychiatry & Neurology Neurology
DX: G72.9 Myopathy, unspecified (principal); G62.9 Polyneuropathy, unspecified
CPT/HCPCS: 36415; 80053; 82085; 82607; 82746; 83874; 83883; 85027; 85652; 86038; 86140; 86225; 86235

== ENCOUNTER 2021-06-09 13:03 | Outpatient (CLI) | payer MEDICAID, SELFPAY ==
--- NOTE | 2021-06-09 13:08 | ECHOD_ITS ---
Reason For Study: PALPITATIONS Procedure This was a 2D Doppler, Color Flow transthoracic echocardiogram. Exam performed in department. Left Ventricle Normal LV size. Left ventricular systolic function is normal. The estimated ejection fraction is 65 %. No evidence for diastolic dysfunction. No regional wall motion abnormalities noted. Right Ventricle Normal RV size. Normal systolic function. Atria Normal left atrium. Normal right atrium. No doppler evidence for ASD. Mitral Valve There is no mitral annular calcification. Normal mitral valve. Trivial mitral valve insufficiency. Tricuspid Valve Normal tricuspid valve. Trivial tricuspid valve insufficiency. Unable to estimate RV systolic pressure due to insufficient tricuspid regurgitant envelope. Aortic Valve Trisinus/trileaflet aortic valve. Normal aortic valve. Pulmonic Valve The pulmonic valve is not well visualized. Great Vessels Normal sized aortic root. Pericardium/Pleural No pericardial effusion. MMode/2D Measurements & Calculations LVIDd: 4.4 cm IVSd: 0.76 cm Ao root diam: 2.7 cm LVIDs: 2.7 cm LVPWd: 0.91 cm RVDd: 2.9 cm FS: 39.4 % LAV(MOD-bp): 30.0 ml LA A4 area: 11.8 cm2 LA dimension(2D): 3.3 cm LAV(MOD-bp) Indexed: 16.4 ml/m2 LAV(MOD-sp2): 32.8 ml LAV(MOD-sp4): 26.3 ml RA A4 area: 10.8 cm2 Time Measurements MV dec time: 0.19 sec Doppler Measurements & Calculations MV E max jitendra: 84.6 cm/sec Lat Peak E' Jitendra: 17.9 cm/sec Med Peak E' Jitendra: 11.4 cm/sec MV A max jitendra: 74.1 cm/sec E/E' lat: 4.7 E/E' med: 7.4 MV E/A: 1.1 Ao V2 max: 130.6 cm/sec LV V1 max: 102.7 cm/sec PA V2 max: 94.7 cm/sec Ao max P.8 mmHg LV V1 max P.2 mmHg ECHO/Echo Complete Interpretation Summary Left ventricular systolic function is normal. The estimated ejection fraction is 65 %. Trivial mitral valve insufficiency. Trivial tricuspid valve insufficiency. Unable to estimate RV systolic pressure due to insufficient tricuspid regurgita nt envelope. No evidence for diastolic dysfunction. Ordering Physician: Emmanuel Wong Referring Physician: Anant Curran Performed By: Laurie Steward, OPAL, RVT
== END 2021-06-09 23:59 | disposition home or self-care (01) ==
LOC: CVS 13:05
PROVIDERS: PCP Family Medicine; Referring Provider Internal Medicine Cardiovascular Disease; Visit Provider Internal Medicine Cardiovascular Disease
DX: I49.8 Other specified cardiac arrhythmias (principal); R00.0 Tachycardia, unspecified; R00.1 Bradycardia, unspecified
CPT/HCPCS: 93306

== ENCOUNTER 2021-06-20 18:39 | Outpatient (CLI) | payer MEDICAID, SELFPAY ==
--- NOTE | 2021-06-20 18:48 | CT_ITS ---
STUDY: CT ABDOMEN AND PELVIS WITH CONTRAST REASON FOR EXAM: Female, 35 years old. Abd pain, diarrhea, possible IBD -- w/ oral and IV contrast please RADIATION DOSAGE (If Supplied By Facility): CTDIvol = ( 16.5 ) mGy, DLP = ( 948.78 ) mGycm TECHNIQUE: Transaxial images were obtained from the dome of the diaphragm to the symphysis pubis without oral contrast. Oral and amp; IV Readi-CAT and amp; 100mL Isovue-300 was administered. Sagittal and coronal images were reconstructed. Individualized dose optimization techniques were used for this CT. COMPARISON: 08/06/2020 FINDINGS: The visualized lung bases are unremarkable. The visualized portions of the heart are within normal limits. Normal liver. Nonvisualization of the gallbladder. No significant dilatation of extrahepatic biliary system. Normal spleen. Normal pancreas. Normal bilateral adrenal glands. Bilateral renal calculi up to 3 mm. Normal visualized stomach. Normal small intestine. Normal colon. The appendix is visualized and appears normal. Normal abdominal aorta. Normal inferior vena cava. Normal retroperitoneum. Normal urinary bladder. Possible right adnexal 1.7 cm cystic nodule. Small fatty umbilical hernia. Normal osseous structures. CT/Abdomen/Pelvis WITH Contrast IMPRESSION: Bilateral nonobstructive renal calculi. Small fatty umbilical hernia Electronically Signed: Oleg Olvera DO at 19:29 EDT ,
[2021-06-20 18:51] LABS: CREATININE FINGERSTICK 0.7 mg/dL (0.55-1.02); EGFR FINGERSTICK > 60.0000 mL/min (>60)
== END 2021-06-20 23:59 | disposition home or self-care (01) ==
LOC: CT 18:40
PROVIDERS: PCP Family Medicine; Referring Provider Nurse Practitioner Adult Health; Visit Provider Nurse Practitioner Adult Health
DX: R19.7 Diarrhea, unspecified (principal); R10.9 Unspecified abdominal pain
CPT/HCPCS: 74177

== ENCOUNTER → 2021-08-15 | Outpatient (CLI) | payer MEDICAID, SELFPAY | END | disposition home or self-care (01) | LOC: LAB 16:49 | PROVIDERS: PCP Family Medicine; Visit Provider Obstetrics & Gynecology | DX: N89.8 Other specified noninflammatory disorders of vagina (principal) | CPT/HCPCS: 87070; 87205 ==

== ENCOUNTER → 2021-10-22 | Outpatient (CLI) | payer MEDICAID, SELFPAY ==
[2021-10-22 16:39] LABS: Absolute Lymphocyte Count 3.37 X10^3/uL (0.83-4.51); Basophil# 0.04 X10^3/uL; Basophil% 0.5 % (0-1); Eosinophil# 0.22 X10^3/uL; Eosinophils% 2.7 % (0-5); Hematocrit 38.2 % (37-47); Hemoglobin 12.1 g/dL (12.0-15.0); Lymphocyte # 3.37 X10^3/ul (0.83-4.51); Mean Corp Hgb Conc 31.7 g/dL (32-36); Mean Corpuscular Hgb 27.5 pg (27.0-32.0); Mean Corpuscular Volume 86.8 fL (81-99); Monocyte# 0.53 X10^3/uL; Monocyte% 6.5 % (0-10); NRBC Flagged by Analyzer 0 % (0-5); Neutrophil # 4.02 X10^3/uL (2.7-7.7); Neutrophil % 48.9 % (47-70); Platelet Count 321 K/mm3 (150-450); RBC Distribution Width SD 41.5 fl (35.1-43.9); White Blood Count 8.2 K/mm3 (4.4-11.0)
[2021-10-22 16:57] LABS: Erythrocyte Sedimentation Rate 8 mm/hr (0-30)
[2021-10-22 17:09] LABS: AST(SGOT) 26 U/L (15-37); Alanine Aminotransfer ALT/SGPT 32 U/L (13-56); Albumin, Serum 3.9 g/dL (3.2-5.0); Alkaline Phosphatase 84 U/L (45-117); Anion Gap 4 (5-15); BUN 10 mg/dL (7-18); BUN/Creat Ratio 11.8 RATIO (10-20); Calcium,Total 9.1 mg/dL (8.5-10.1); Chloride 106 mmol/L (98-107); Creatinine, Serum 0.85 mg/dL (0.55-1.02); EST Glomerular Filtration Rate 80 mL/min (>60); Est Glom Filt Rate - Afr Amer 97 mL/min (>60); Globulin 4.1 g/dL (2.2-4.2); Glucose 99 mg/dL (74-106); LDH 164 U/L (84-246); Potassium 3.8 mmol/L (3.5-5.1); Sodium Level 138 mmol/L (136-145)
[2021-10-24 14:09] LABS: Anti-Centromere B Ab <0.2 AI (0.0-0.9); Anti-Chromatin <0.2 AI (0.0-0.9); Anti-Jo <0.2 AI (0.0-0.9); Anti-Scleroderma-70 AB <0.2 AI (0.0-0.9); RNP Ab 0.3 AI (0.0-0.9); SJOGREN'S Anti-SS-A test < 0.2 AI (0.0-0.9); SJOGREN'S Anti-SS-B test < 0.2 AI (0.0-0.9); Smith Ab <0.2 AI (0.0-0.9)
[2021-10-24 15:07] LABS: Endomysial Antibody IgA Negative (Negative)
[2021-10-24 16:15] LABS: Immunoglobulin A 234 mg/dL (87-352); t-Transglutaminase IgA <2 U/mL (0-3)
[2021-10-24 16:19] LABS: Anti-dsDNA Ab 1 IU/mL (0-9)
[2021-10-28 11:08] LABS: Albumin 3.9 g/dL (2.9-4.4); Alpha-1-Globulins 0.3 g/dL (0.0-0.4); Alpha-2-Globulins 0.8 g/dL (0.4-1.0); Cytoplasmic Ab (C-ANCA) <1:20 titer (Neg:<1:20); Gamma Globulin 1.4 g/dL (0.4-1.8); Immunoglobulin A 238 mg/dL (87-352); Immunoglobulin E 83 IU/mL (6-495); Immunoglobulin G 1256 mg/dL (586-1602); Immunoglobulin M 127 mg/dL (26-217); PROEL- TOTAL PROTEIN 7.7 g/dL (6.0-8.5)
[2021-10-28 16:07] LABS: Perinuclear Ab (P-ANCA) <1:20 titer (Neg:<1:20)
== END | disposition home or self-care (01) ==
LOC: LAB 15:53
PROVIDERS: PCP Family Medicine; Visit Provider Nurse Practitioner Adult Health
DX: K52.9 Noninfective gastroenteritis and colitis, unspecified (principal); R30.0 Dysuria
CPT/HCPCS: 36415; 80053; 82784; 82785; 83516; 83615; 84165; 85025; 85652; 86140; 86225; 86235; 86255; 86256; 86334; 87086

== ENCOUNTER → 2021-10-24 | Outpatient (CLI) | payer MEDICAID, SELFPAY ==
[2021-10-29 16:24] LABS: Calprotectin, Stool <16 ug/g (0-120)
== END | disposition home or self-care (01) ==
LOC: LAB 14:42
PROVIDERS: PCP Family Medicine; Referring Provider Nurse Practitioner Adult Health; Visit Provider Nurse Practitioner Adult Health
DX: K58.9 Irritable bowel syndrome, unspecified (principal)
CPT/HCPCS: 87209; 87177; 83630; 83993; 87493; 87506

== ENCOUNTER 2021-12-03 18:02 | Emergency (ER) | payer MEDICAID, SELFPAY ==
[2021-12-03 18:04] VITALS: BP 150/94; PULSE 97; RESP 16; TEMP 36.8; O2SAT 100; BMI 34.2
[2021-12-03 19:00] LABS: Color, Urine Yellow (Yellow); Glucose, Dipstick Normal (Normal); Ketone-Dipstick Negative (Negative); Leukocyte Esterase-Dipstick Negative /ul (Negative); Nitrite-Dipstick Negative (Negative); Occult Blood-Urine 25 /ul (Negative); Protein-Dipstick Negative (Negative); Urine Bilirubin Dipstick Negative (Negative); Urine Clarity Sl. Cloudy (Clear); Urine Urobilinogen Normal (Normal)
[2021-12-03 19:18] LABS: Bacteria 2+ /hpf (None Seen); Mucous, Urine 3+ /hpf (<or=2+); Red Blood Cells-Urine 0-5 SEEN /hpf (0-5); Squamous Epithelial Cells - UA 5-10 SEEN /hpf (5-10); White Blood Cells 0-5 SEEN /hpf (0-5)
--- NOTE | 2021-12-03 19:27 | US_ITS ---
STUDY: ULTRASOUND TRANSVAGINAL CLINICAL: Female, 36 years old. Right-sided pelvic pain. Question torsion. TECHNIQUE: Transvaginal COMPARISON: None. FINDINGS: Uterus is anteverted in midline measuring 10.1 x 6.5 x 5.0 cm There are no myometrial masses. Endometrium is 2.4 cm in thickness and is hyperechoic.. There are no endometrial masses, and there is no fluid in the endometrial cavity. Normal uterine cervix. Nabothian cysts are present. Normal right ovary, measuring 3.9 x 3.5 x 2.8 cm. There are multiple follicles without a dominant cyst. Normal vascularity on DOPPLER imaging. The left ovary is not visualized secondary to prior surgical removal. There is no left adnexal mass. There is no free fluid in the pelvis. Polycystic ovary disease: No. US/Transvaginal Non- IMPRESSION: 1. Prominent endometrium without mass. The uterus is otherwise unremarkable. 2. Normal right ovary. There is no evidence of torsion. 3. Status post left oophorectomy. Electronically Signed: Juan Antonio Garduno DO at 21:01 EDT ,
--- NOTE | 2021-12-03 19:34 | EDS_ITS ---
HPI History of Present Illness Chief Complaint: Flank Pain Informant: patient Narrative Narrative: Patient presents with left lower quadrant pain that has been going on for about a week to week and a half. She describes as left pelvic. She has seen her doctor and [employer] for this. Her primary doctor ordered basic blood work this morning. Patient has a history of pain in this area but it is worse in the last week. She occasionally has mild nausea. She is still moving her bowels. Urination is normal. She has a history of a torsion of the left ovary that was removed about 6 or 7 years ago. The symptoms remind her of that. But she is also been having pain in that area. She is scheduled to have a hysterectomy in January. She has been seeing multiple physicians about this. They have done an MRI of the abdomen because of this area. This was done in July. It sounds like it showed adhesions. She was told that when they do her hysterectomy they would likely need general surgeon because there will likely be a partial bowel resection needed. She was referred in today to rule out torsion. [facility] Medical History (Updated 12/03/21 @ 23:[address] Nato Briseno MD) Acid reflux Acute maxillary sinusitis, unspecified Anal fissure Anemia Ankylosing spondylitis Anxiety Arthritis Asthma Back pain Diarrhea Diverticulosis Ectopic cardiac beats Edema Endometriosis Exercise-induced asthma Fatigue h/o lesion removal Hematochezia Hemorrhoids Hepatic steatosis History of back problems History of fatty infiltration of liver History of Lyme disease History of steroid therapy Hypertension Irregular heart beat Kidney disease Kidney stones Leg cramps lysis of adensions (~09/2019) Medullary sponge kidney of both kidneys Migraine headache Mitral regurgitation Non-smoker Ovarian cyst PCOS (polycystic ovarian syndrome) POTS (postural orthostatic tachycardia syndrome) Prolapse of intestine Rash Reflux involving intestinal tract Restless legs Sinus tachycardia Sinus tachycardia Sleep apnea Symptomatic bradycardia Symptomatic bradycardia Syncope Tachycardia Wears glasses Home Medications multivitamin 1 tab PO DAILY 12/13/17 [History Last Taken 09/17/18] albuterol sulfate 90 mcg/actuation aerosol inhaler 1 - 2 puff inhalation Q6H PRN PRN Asthma 10/19/19 [History Last Taken Unknown] atenolol 25 mg tablet 25 mg PO DAILY 07/08/20 [History Last Taken Unknown] potassium chloride 20 mEq tablet,extended release 20 meq PO DAILY 08/06/20 [History Last Taken Unknown] baclofen 10 mg tablet 10 mg PO BID PRN muscle pain #60 tabs 02/10/21 [Rx Last Taken Unknown] ketoconazole 2 % topical cream 1 applic topical BID 3 weeks #30 grams 02/12/21 [Rx Last Taken Unknown] ondansetron 4 mg disintegrating tablet 4 mg PO Q8H PRN nausea and vomiting #90 tabs 04/18/21 [Rx Last Taken Unknown] pantoprazole 40 mg tablet,delayed release 40 mg PO DAILY gerd 05/19/21 [History Last Taken Unknown] cetirizine 10 mg tablet (Zyrtec) 10 mg PO DAILY PRN allergies 11/10/21 [History Last Taken Unknown] mesalamine 1,000 mg rectal suppository 1 g NV QHS PRN colitis 12/03/21 [History Last Taken Unknown] Allergy/AdvReac Type Severity Reaction Status Date / Time acetaminophen [From Vicodin] Allergy Severe Itching Verified 11/20/21 15:18 cephalexin monohydrate Allergy Severe Anaphylaxis Verified 11/20/21 15:18 [From Keflex] cyclobenzaprine Allergy Severe Mental Verified 11/20/21 15:18 [From Flexeril] status change hydrocodone [From Vicodin] Allergy Severe Itching Verified 11/20/21 15:18 latex Allergy Mild Swelling Verified 11/20/21 15:18 eucalyptus AdvReac Severe tachycardia, Verified 11/20/21 15:18 close airway NSAIDS (Non-Steroidal AdvReac Severe GI upset Verified 11/20/21 15:18 Anti-Inflamma tamsulosin [From Flomax] AdvReac Severe Low BP/HR Verified 11/20/21 15:18 tizanidine AdvReac Severe Low HR Verified 11/20/21 15:18 ciprofloxacin [From Cipro] AdvReac diarrhea, Verified 11/20/21 15:18 nausea, tachycardia doxycycline AdvReac Diarrhea Verified 11/20/21 15:18 Family History Mother Heart disease Hypertension Father Heart disease Diabetes Hypertension Surgical History (Updated 12/03/21 @ 19:46 by Roxanne Benito) H/O cystoscopy (~09/2019) H/O dilation and curettage (~09/2019) History of History of cholecystectomy History of hernia repair Hx laparoscopic cholecystectomy (~09/2019) Hx of removal of ovary Social History Smoking Status: Never smoker Electronic Cigarette Use: not used second hand exposure: No alcohol intake: never substance use type: does not use caffeine: No what type of physical activity do you participate in: walking frequency: 5-6 times per week seatbelt use: always do you feel safe at home: Yes additional social history: Single- Currently unemployed ROS ROS ED Constitutional Constitutional ED: Denies chills or fever(s) Eyes Eyes: Denies change in vision ENT ENT ED: Denies rhinorrhea or sore throat Cardiovascular Cardiovascular: Denies chest pain or palpitations Respiratory/Chest Respiratory/Chest: Denies cough or dyspnea Gastrointestinal Gastrointestinal: Reports abdominal pain and nausea; Denies constipation, diarrhea or melena Genitourinary Genitourinary ED: Denies dysuria or hematuria Musculoskeletal Musculoskeletal: Reports other Details: No back or flank pain. Patient has also had kidney stones but this does not seem quite like that. ; Denies back pain Integumentary Denies rash Neurologic Neurologic: Denies paresthesias or weakness Endocrine Endocrinology: Denies polydipsia or polyuria Hematologic/Lymphatic Hematologic/Lymphatic: Denies easy bleeding or easy bruising Allergic/Immunologic Allergic/Immunologic ED: Denies urticaria EXAM Physical Exam Const Vital Signs: 12/03/21 18:04 12/03/21 19:58 12/03/21 21:12 Temperature 98.2 F Temperature Source Temporal Pulse Rate 97 87 Respiratory Rate 16 16 Respiratory Pattern Normal Blood Pressure 150/94 H 142/78 H Blood Pressure Mean 112 99 Pulse Ox 100 98 Oxygen Delivery Method Room Air Room Air Positive well nourished and well developed General Appearance ED: well developed and NAD HEENT Reports moist mucous membranes Eyes General Eye ED: Negative for scleral icterus Resp normal respiratory effort and clear to auscultation bilaterally Cardio regular rate and regular rhythm GI normal to inspection, nondistended, normoactive bowel sounds GI Narrative: Patient 68 pain at her right lower quadrant area. But she really does not have tenderness. She states pressing does not change it a lot. She does not have CVA tenderness. Back/Spine no CVA tenderness Extremity normal to inspection Neuro oriented x3 Psych mental status grossly normal Skin no rashes or lesions noted and no wounds General Skin Exam: Negative for jaundice MDM MDM MDM Narrative Medical decision making narrative: I discussed options with the patient. She did have blood work done this morning. I am going to repeat the CBC to make sure hemoglobin has not dropped. Patient evidently has had a large number of CAT scans of the abdomen and would like to avoid another one if possible. I explained that an ultrasound will show torsion but would not show appendicitis or bowel obstruction or kidney stones or other problems. She requested we do the ultrasound first. If that shows torsion we can deal with that. If not we will look further. Patient's blood work and ultrasound and urine showed no sign of abnormalities. Urine is not a good clean-catch but no white cells. Prior CT is negative. Ultrasound does not indicate cause of problems. I did discuss options with the patient. We will do CT scan of the abdomen. If this shows acute abnormalities certainly we will deal with these. If not we will get her to follow-up with her multiple physicians that she is seen for these problems. We did do CT scan. This showed no acute process. There were cystic structures near the right but we had already obtained ultrasound. They saw the appendix and it was normal. Patient is comfortable with this plan. She has ongoing issues with the abdomen. We will get her home at this time. She has multiple physicians to follow-up with. She has pending surgery in January. Lab Data Attestation: I reviewed the patient's lab results. Labs: Laboratory Results - last 24 hr 12/03/21 12/03/21 12/03/21 18:55 19:53 19:53 WBC 9.0 RBC 4.43 Hgb 12.2 Hct 37.8 MCV 85.3 MCH 27.5 MCHC 32.3 RDW Std Deviation 40.2 RDW Coeff of Karon 13.0 Plt Count 286 MPV 8.9 Immature Gran % (Auto) 0.300 Neut % (Auto) 62.8 Lymph % (Auto) 28.9 [place] % (Auto) 5.8 Eos % (Auto) 1.8 Baso % (Auto) 0.4 Absolute Neuts (auto) 5.7 Absolute Lymphs (auto) 2.61 Nucleated RBC % 0 Sodium 141 Potassium 3.6 Chloride 107 Carbon Dioxide 25.0 Anion Gap 9 BUN 7 Creatinine 0.78 Estim Creat Clear Calc 77.34 Est GFR (MDRD) Af Amer 106 Est GFR (MDRD) Non-Af 88 BUN/Creatinine Ratio 9.0 L Glucose 118 H Calcium 9.4 Total Bilirubin 0.30 AST 17 ALT 25 Alkaline Phosphatase 79 Total Protein 7.6 Albumin 3.5 Globulin 4.1 Albumin/Globulin Ratio 0.9 Serum , Qual Urine Color Yellow Urine Clarity Sl. Cloudy Urine pH 6.0 Ur Specific [place] 1.020 Urine Protein Negative Urine Glucose (UA) Normal Urine Ketones Negative Urine Occult Blood 25 H Urine Nitrite Negative Urine Bilirubin Negative Urine Urobilinogen Normal Ur Leukocyte Esterase Negative Urine RBC 0-5 SEEN Urine WBC 0-5 SEEN Ur Squamous Epith Cells 5-10 SEEN Urine Bacteria 2+ Urine Mucus 3+ 12/03/21 19:53 WBC RBC Hgb Hct MCV MCH MCHC RDW Std Deviation RDW Coeff of Karon Plt Count MPV Immature Gran % (Auto) Neut % (Auto) Lymph % (Auto) [place] % (Auto) Eos % (Auto) Baso % (Auto) Absolute Neuts (auto) Absolute Lymphs (auto) Nucleated RBC % Sodium Potassium Chloride Carbon Dioxide Anion Gap BUN Creatinine Estim Creat Clear Calc Est GFR (MDRD) Af Amer Est GFR (MDRD) Non-Af BUN/Creatinine Ratio Glucose Calcium Total Bilirubin AST ALT Alkaline Phosphatase Total Protein Albumin Globulin Albumin/Globulin Ratio Serum , Qual NEGATIVE Urine Color Urine Clarity Urine pH Ur Specific [place] Urine Protein Urine Glucose (UA) Urine Ketones Urine Occult Blood Urine Nitrite Urine Bilirubin Urine Urobilinogen Ur Leukocyte Esterase Urine RBC Urine WBC Ur Squamous Epith Cells Urine Bacteria Urine Mucus Radiography Diagnostic Testing: Clinical Impression(s) from Imaging Studies Transvaginal US 12/03/21 19:27 IMPRESSION: 1. Prominent endometrium without mass. The uterus is otherwise unremarkable. 2. Normal right ovary. There is no evidence of torsion. 3. Status post left oophorectomy. Electronically Signed: Juan Antonio Garduno DO at 21:01 EDT , Abdomen/Pelvis CT 12/03/21 21:45 IMPRESSION: Right adnexal cystic mass as above. Recommend pelvic ultrasound. Bilateral punctate nonobstructing nephroliths. Electronically Signed: Selwyn Hernandez MD at 22:50 EDT , Discharge Plan Triage Chief Complaint: Flank Pain Other Complaint: Female C/O ED Provider: Nato Briseno Dx/Rx/DC Orders Clinical Impression: Abdominal pain Instructions: Abdominal Pain Prescriptions: No Action multivitamin tablet 1 tab PO DAILY cetirizine [Zyrtec] 10 mg tablet 10 mg PO DAILY PRN (Reason: allergies) atenolol 25 mg tablet 25 mg PO DAILY potassium chloride 20 mEq tablet extended release 20 meq PO DAILY baclofen 10 mg tablet 10 mg PO BID PRN (Reason: muscle pain) Qty: 60 2RF ondansetron 4 mg tablet,disintegrating 4 mg PO Q8H PRN (Reason: nausea and vomiting) Qty: 90 1RF albuterol sulfate 1 INHALER inhaler 1 - 2 puff INHALATION Q6H PRN PRN (Reason: Asthma) pantoprazole 40 mg tablet,delayed release (DR/EC) 40 mg PO DAILY Rx Instructions: TAKE 1 TABLET BY MOUTH EVERY DAY ketoconazole 2 % cream 1 applic topical BID 21 Days Qty: 30 0RF mesalamine 1,000 mg suppository 1 g NV QHS PRN (Reason: colitis) Primary Care Provider: Anant Curran Referrals: Anant Curran DO [Primary Care Provider] - As soon as possible Disposition Disposition: Home, Self Care
[2021-12-03] MEDS: Ondansetron 4 MG/2 ML Vial IV (19:54)
[2021-12-03] MEDS: 0.9% Normal Saline 1,000 ML 1000 ML IV (19:54)
[2021-12-03 20:04] LABS: Absolute Lymphocyte Count 2.61 X10^3/uL (0.83-4.51); Absolute Neutrophil Count 5.7 X10^3/uL (2.0-7.7); Basophil# 0.04 X10^3/uL; Basophil% 0.4 % (0-1); Eosinophil# 0.16 X10^3/uL; Eosinophils% 1.8 % (0-5); Hematocrit 37.8 % (37-47); Hemoglobin 12.2 g/dL (12.0-15.0); Lymphocyte # 2.61 X10^3/ul (0.83-4.51); Lymphocyte % 28.9 % (19-41); Mean Corp Hgb Conc 32.3 g/dL (32-36); Mean Corpuscular Hgb 27.5 pg (27.0-32.0); Mean Corpuscular Volume 85.3 fL (81-99); Mean Platelet Vol. 8.9 fl (6.2-12.0); Monocyte# 0.52 X10^3/uL; Monocyte% 5.8 % (0-10); NRBC Flagged by Analyzer 0 % (0-5); Neutrophil # 5.66 X10^3/uL (2.7-7.7); Neutrophil % 62.8 % (47-70); Platelet Count 286 K/mm3 (150-450); RBC Distribution Width SD 40.2 fl (35.1-43.9); Red Blood Count 4.43 M/mm3 (4.2-5.4)
[2021-12-03 20:25] LABS: ALB/GLOB Ratio 0.9 RATIO (0.9-2.4); AST(SGOT) 17 U/L (15-37); Alanine Aminotransfer ALT/SGPT 25 U/L (13-56); Albumin, Serum 3.5 g/dL (3.2-5.0); Alkaline Phosphatase 79 U/L (45-117); Anion Gap 9 (5-15); BUN 7 mg/dL (7-18); Calcium,Total 9.4 mg/dL (8.5-10.1); Chloride 107 mmol/L (98-107); Creatinine, Serum 0.78 mg/dL (0.55-1.02); EST Glomerular Filtration Rate 88 mL/min (>60); Est Glom Filt Rate - Afr Amer 106 mL/min (>60); Estimated Creatinine Clearance 77.34 ml/min; Globulin 4.1 g/dL (2.2-4.2); Glucose 118 mg/dL (74-106); Potassium 3.6 mmol/L (3.5-5.1); Protein, Total 7.6 g/dL (6.4-8.2); Sodium Level 141 mmol/L (136-145)
[2021-12-03] MEDS: Ketorolac 15 MG/ML Vial IV (21:09)
[2021-12-03 21:12] VITALS: BP 142/78; PULSE 87; RESP 16; O2SAT 98
[2021-12-03 21:34] LABS: Internal QC Validated? YES +Cl - CLEAR BKGD; Pregnancy, Serum, hCG Quali. NEGATIVE Negative
--- NOTE | 2021-12-03 21:45 | CT_ITS ---
STUDY: CT ABDOMEN AND PELVIS WITH CONTRAST REASON FOR EXAM: Female, 36 years old. RLQ pain RADIATION DOSAGE (If Supplied By Facility): CTDIvol = ( 16.62 ) mGy, DLP = ( 997.72 ) mGycm TECHNIQUE: Transaxial images were obtained from the dome of the diaphragm to the symphysis pubis without oral contrast. IV 100mL Isovue-370 was administered. Sagittal and coronal images were reconstructed. Individualized dose optimization techniques were used for this CT. COMPARISON: Pelvic ultrasound 12/03/2021. CT abdomen and pelvis 06/20/2021. FINDINGS: The visualized lung bases are unremarkable. The visualized portions of the heart are within normal limits. Normal liver. Normal gallbladder and extrahepatic biliary system. Normal spleen. Normal pancreas. Normal bilateral adrenal glands. Punctate nonobstructing nephroliths bilaterally. Normal visualized stomach. Normal small intestine. Normal colon. The appendix is visualized and appears normal. Normal abdominal aorta. Normal inferior vena cava. Normal retroperitoneum. Bladder decompressed. Right adnexal cystic lesion measures 5.3 x 2.4 cm. There is a small umbilical hernia containing fat. Normal osseous structures. CT/Abdomen/Pelvis W IV Cont ONLY IMPRESSION: Right adnexal cystic mass as above. Recommend pelvic ultrasound. Bilateral punctate nonobstructing nephroliths. Electronically Signed: Selwyn Hernandez MD at 22:50 EDT ,
[2021-12-03 23:43] VITALS: BP 124/89; PULSE 75; RESP 16; O2SAT 97
== END 2021-12-04 00:01 | disposition home or self-care (01) ==
PROVIDERS: Emergency Provider Emergency Medicine; PCP Family Medicine; Visit Provider Emergency Medicine
DX: R10.9 Unspecified abdominal pain (principal); I10 Essential (primary) hypertension; R23.2 Flushing; R53.83 Other fatigue; E34.9 Endocrine disorder, unspecified; J45.909 Unspecified asthma, uncomplicated; M19.90 Unspecified osteoarthritis, unspecified site
CPT/HCPCS: 82626; 36415; 74177; 76830; 80053; 81001; 81002; 82533; 82627; 82670; 83525; 84144; 84402; 84403; 84443; 84703; 85025; 87086; 87088; 93976; 96361; 96374; 96375; 99284; J7030; Q9967; A4216; J2405

== ENCOUNTER → 2021-12-03 | Outpatient (CLI) | payer MEDICAID, SELFPAY ==
[2021-12-03 10:26] LABS: Absolute Neutrophil Count 5.4 X10^3/uL (2.0-7.7); Basophil# 0.04 X10^3/uL; Basophil% 0.5 % (0-1); Eosinophil# 0.17 X10^3/uL; Hematocrit 39.2 % (37-47); Hemoglobin 12.3 g/dL (12.0-15.0); Lymphocyte % 29.2 % (19-41); Mean Corp Hgb Conc 31.4 g/dL (32-36); Mean Corpuscular Hgb 26.9 pg (27.0-32.0); Mean Corpuscular Volume 85.6 fL (81-99); Mean Platelet Vol. 9.3 fl (6.2-12.0); Monocyte# 0.41 X10^3/uL; Monocyte% 4.8 % (0-10); NRBC Flagged by Analyzer 0 % (0-5); Neutrophil # 5.43 X10^3/uL (2.7-7.7); Neutrophil % 63.3 % (47-70); Platelet Count 305 K/mm3 (150-450); RBC Distribution Width SD 40.2 fl (35.1-43.9); Red Blood Count 4.58 M/mm3 (4.2-5.4); White Blood Count 8.6 K/mm3 (4.4-11.0)
[2021-12-03 10:32] LABS: Color, Urine Yellow (Yellow); Glucose, Dipstick Normal (Normal); Ketone-Dipstick Negative (Negative); Leukocyte Esterase-Dipstick Negative /ul (Negative); Nitrite-Dipstick Negative (Negative); Occult Blood-Urine Negative /ul (Negative); Protein-Dipstick Negative (Negative); Urine Bilirubin Dipstick Negative (Negative); Urine Clarity Clear (Clear); Urine Urobilinogen Normal (Normal)
[2021-12-03 11:06] LABS: Insulin 88.4 mU/L (2.6-37.6); Progesterone Level 0.85 ng/mL (See Comment)
[2021-12-03 11:09] LABS: Estradiol 270.3 pg/mL; Thyroid Stim Hormone (TSH) 0.53 uIU/mL (0.358-3.74)
[2021-12-11 12:08] LABS: Testosterone, % Free 2.91 % (0.50-2.80); Testosterone, Free 1.54 ng/dL (0.10-0.85); Testosterone, Total 53 ng/dL (8-60)
== END | disposition home or self-care (01) ==
PROVIDERS: PCP Family Medicine; Referring Provider Family Medicine; Visit Provider Family Medicine
DX: R10.9 Unspecified abdominal pain (principal); R23.2 Flushing; R53.83 Other fatigue; E34.9 Endocrine disorder, unspecified
CPT/HCPCS: 36415; 81002; 82533; 82626; 82670; 83525; 84144; 84402; 84403; 84443; 85025; 87086; 82627

== ENCOUNTER → 2022-02-23 | Outpatient (CLI) | payer MEDICAID, SELFPAY | END | disposition home or self-care (01) | LOC: LABSPEC 13:29 | PROVIDERS: PCP Family Medicine; Visit Provider Family Medicine | DX: R10.9 Unspecified abdominal pain (principal) | CPT/HCPCS: 87086 ==

== ENCOUNTER 2022-03-06 12:11 | Emergency (ER) | payer MEDICAID, SELFPAY ==
[2022-03-06 12:13] VITALS: BP 133/77; PULSE 72; RESP 14; TEMP 36.6; O2SAT 99; BMI 32.8
[2022-03-06 12:15] VITALS: BP 133/77; PULSE 72; RESP 14; TEMP 36.6; O2SAT 99
[2022-03-06 13:15] VITALS: BP 133/77; PULSE 72; RESP 14; TEMP 36.6; O2SAT 99
--- NOTE | 2022-03-06 13:21 | CT_ITS ---
STUDY: CT ABDOMEN AND PELVIS WITHOUT CONTRAST REASON FOR EXAM: Female, 36 years old. Lower pelvic pain. History of kidney stones. The patient is status post 3 weeks hysterectomy. The patient is status post left oophorectomy. RADIATION DOSAGE (If Supplied By Facility): CTDIvol = ( 17.71 ) mGy, DLP = ( 871.43 ) mGycm TECHNIQUE: Transaxial images were obtained from the dome of the diaphragm to the symphysis pubis without oral contrast, and without intravenous contrast. Sagittal and coronal images were reconstructed. Individualized dose optimization techniques were used for this CT. COMPARISON: Comparison is made with prior study dated 06/20/2021. FINDINGS: The visualized lung bases are unremarkable. The visualized portions of the heart are within normal limits. Normal liver. The patient is status post cholecystectomy. Normal spleen. Normal pancreas. Normal bilateral adrenal glands. There are nonobstructive small bilateral intrarenal calculi. Normal visualized stomach. Normal small intestine. Normal colon. The appendix is visualized and appears normal. Normal abdominal aorta. Normal inferior vena cava. Normal retroperitoneum. Normal urinary bladder. There is absence of the uterus consistent with a prior hysterectomy. Mild residual increased markings are seen in the pelvis at the site of the uterus resection suggestive of postoperative change. No focal abscess is seen. The right ovary measures 3.6 cm x 2.6 cm. I suspect a dominant follicle within it. Normal abdominal wall. Normal osseous structures. CT/Abdomen/Pelvis without Cont IMPRESSION: Stable small nonobstructive bilateral intrarenal calculi. Status post cholecystectomy and hysterectomy. Minimal postoperative changes are seen in the pelvis. Electronically Signed: Darrel Dunbar MD at 14:39 EST ,
--- NOTE | 2022-03-06 13:22 | EDS_ITS ---
HPI HPI - Female History of Present Illness Chief Complaint: Female C/O Informant: patient Narrative Narrative: 36-year-old female presenting to the emergency room with lower right abdominal pain. Patient underwent laparoscopic hysterectomy with adhesional lysis in [place] approximately 3 weeks ago. Last night she had several episodes of emesis went to bed. Today she has developed pain in the right lower quadrant that radiates to the midline. She also notes some radiation posteriorly towards the flank. She notes a temperature of 100.7 today. She had some diarrhea today no further vomiting. She notes that after the surgery she was diagnosed with a kidney stone and passed it. She has been noting some urinary frequency PFSH PFS Medical History Acid reflux Acute maxillary sinusitis, unspecified Anal fissure Anemia Ankylosing spondylitis Anxiety Arthritis Asthma Back pain Diarrhea Diverticulosis Ectopic cardiac beats Edema Endometriosis Exercise-induced asthma Fatigue h/o lesion removal Hematochezia Hemorrhoids Hepatic steatosis History of back problems History of fatty infiltration of liver History of Lyme disease History of steroid therapy Hypertension Irregular heart beat Kidney disease Kidney stones Leg cramps lysis of adensions (~09/2019) Medullary sponge kidney of both kidneys Migraine headache Mitral regurgitation Non-smoker Ovarian cyst PCOS (polycystic ovarian syndrome) POTS (postural orthostatic tachycardia syndrome) Prolapse of intestine Rash Reflux involving intestinal tract Restless legs Sinus tachycardia Sinus tachycardia Sleep apnea Symptomatic bradycardia Symptomatic bradycardia Syncope Tachycardia Wears glasses Home Medications multivitamin 1 tab PO DAILY 12/13/17 [History Last Taken 09/17/18] albuterol sulfate 90 mcg/actuation aerosol inhaler 1 - 2 puff inhalation Q6H PRN PRN Asthma 10/19/19 [History Last Taken Unknown] atenolol 25 mg tablet 25 mg PO DAILY 07/08/20 [History Last Taken Unknown] potassium chloride 20 mEq tablet,extended release 20 meq PO DAILY 08/06/20 [History Last Taken Unknown] baclofen 10 mg tablet 10 mg PO BID PRN muscle pain #60 tabs 02/10/21 [Rx Last Taken Unknown] ketoconazole 2 % topical cream 1 applic topical BID 3 weeks #30 grams 02/12/21 [Rx Last Taken Unknown] ondansetron 4 mg disintegrating tablet 4 mg PO Q8H PRN nausea and vomiting #90 tabs 04/18/21 [Rx Last Taken Unknown] pantoprazole 40 mg tablet,delayed release 40 mg PO DAILY gerd 05/19/21 [History Last Taken Unknown] cetirizine 10 mg tablet (Zyrtec) 10 mg PO DAILY PRN allergies 11/10/21 [History Last Taken Unknown] mesalamine 4 gram/60 mL enema 4 g (60 mL) MN QHS #1,680 mL 12/15/21 [Rx Last Taken Unknown] sucralfate 100 mg/mL oral suspension 10 ml PO QACHS #1,000 mL 12/15/21 [Rx Last Taken Unknown] Allergy/AdvReac Type Severity Reaction Status Date / Time acetaminophen [From Vicodin] Allergy Severe Itching Verified 03/06/22 12:12 cephalexin monohydrate Allergy Severe Anaphylaxis Verified 03/06/22 12:12 [From Keflex] cyclobenzaprine Allergy Severe Mental Verified 03/06/22 12:12 [From Flexeril] status change hydrocodone [From Vicodin] Allergy Severe Itching Verified 03/06/22 12:12 latex Allergy Mild Swelling Verified 03/06/22 12:12 eucalyptus AdvReac Severe tachycardia, Verified 03/06/22 12:12 close airway NSAIDS (Non-Steroidal AdvReac Severe GI upset Verified 03/06/22 12:12 Anti-Inflamma tamsulosin [From Flomax] AdvReac Severe Low BP/HR Verified 03/06/22 12:12 tizanidine AdvReac Severe Low HR Verified 03/06/22 12:12 ciprofloxacin [From Cipro] AdvReac diarrhea, Verified 03/06/22 12:12 nausea, tachycardia doxycycline AdvReac Diarrhea Verified 03/06/22 12:12 Family History Mother Heart disease Hypertension Father Heart disease Diabetes Hypertension Surgical History H/O cystoscopy (~09/2019) H/O dilation and curettage (~09/2019) History of History of cholecystectomy History of hernia repair Hx laparoscopic cholecystectomy (~09/2019) Hx of removal of ovary Social History Smoking Status: Never smoker Electronic Cigarette Use: not used second hand exposure: No alcohol intake: never substance use type: does not use caffeine: No what type of physical activity do you participate in: walking frequency: 5-6 times per week seatbelt use: always do you feel safe at home: Yes additional social history: Single- Currently unemployed ROS ROS ED Constitutional Constitutional ED: Denies chills or weight loss Eyes Eyes: Denies change in vision or diplopia ENT ENT ED: Denies ear pain, rhinorrhea or sore throat Cardiovascular Cardiovascular: Denies chest pain, orthopnea, palpitations or racing heartbeat Respiratory/Chest Respiratory/Chest: Denies cough, dyspnea or orthopnea Gastrointestinal Gastrointestinal: Reports abdominal pain and vomiting; Denies diarrhea or nausea Genitourinary Genitourinary ED: Reports urinary frequency; Denies dysuria or hematuria Musculoskeletal Musculoskeletal: Denies arthralgias or myalgias Integumentary Denies abscess or rash Neurologic Neurologic: Denies headache(s) or weakness Psychiatric Psychiatric: Denies anxiety, depression, suicidal ideation or suicidal thoughts Endocrine Endocrinology: Denies polydipsia, polyphagia or polyuria Allergic/Immunologic Allergic/Immunologic ED: Denies mouth swelling, tongue swelling or urticaria EXAM Physical Exam Const Vital Signs: 03/06/22 12:13 03/06/22 12:15 03/06/22 13:15 Temperature 98 F 98 F 98 F Temperature Source Temporal Temporal Temporal Pulse Rate 72 72 72 Respiratory Rate 14 14 14 Blood Pressure 133/77 H 133/77 H 133/77 H Blood Pressure Mean 95 95 95 Pulse Ox 99 99 99 Oxygen Delivery Method Room Air Room Air Room Air 03/06/22 14:00 Temperature 98 F Temperature Source Temporal Pulse Rate 72 Respiratory Rate 14 Blood Pressure 133/77 H Blood Pressure Mean 95 Pulse Ox 99 Oxygen Delivery Method Room Air Positive well nourished, well developed and obese General Appearance ED: well developed Nutritional Appearance: obese HEENT Reports normocephalic, head/scalp atraumatic and moist mucous membranes Eyes PERRL and EOMs intact bilaterally Neck no lymphadenopathy, supple and no JVD Resp normal respiratory effort and clear to auscultation bilaterally Cardio regular rate, regular rhythm and no murmurs GI GI Narrative: Surgical incisions appear well-healing and without evidence of infection or complication Auscultation: normoactive bowel sounds Palpation: soft and tender RLQ; Negative for guarding or rigid Back/Spine no CVA tenderness and normal ROM Extremity normal to inspection General Extremety ED: Negative for edema General Extremity: Negative for edema Neuro oriented x3 and CN's II-XII intact bilaterally Sensorium / Orientation: alert Motor Exam: strength 5/5 throughout Psych mental status grossly normal Mood & Affect: Negative for depressed or tearful Skin no rashes or lesions noted and no wounds MDM MDM MDM Narrative Medical decision making narrative: White count white count is normal at 7.6. CMP normal lipase [address] of the abdomen pelvis is also normal. At this point I wonder if the patient's vomiting and diarrhea today were related to gastroenteritis. Prevacid she vomited last night she strained her abdominal muscles having just had surgery that could explain why it hurts when she moves. In either way I think it is okay to discharge her home at this time. Would recommend heat and rest return if worsening or concerns Lab Data Attestation: I reviewed the patient's lab results. Labs: Laboratory Results - last 24 hr 03/06/22 03/06/22 03/06/22 13:35 13:45 13:45 WBC 7.6 RBC 4.54 Hgb 12.3 Hct 38.6 MCV 85.0 MCH 27.1 MCHC 31.9 L RDW Std Deviation 41.7 RDW Coeff of Karon 13.3 Plt Count 313 MPV 8.9 Immature Gran % (Auto) 0.300 Neut % (Auto) 59.0 Lymph % (Auto) 30.4 Stone % (Auto) 5.3 Eos % (Auto) 4.6 Baso % (Auto) 0.4 Absolute Neuts (auto) 4.5 Absolute Lymphs (auto) 2.31 Nucleated RBC % 0 Sodium 139 Potassium 3.7 Chloride 108 H Carbon Dioxide 25.0 Anion Gap 6 BUN 9 Creatinine 0.81 Estim Creat Clear Calc 77.90 Est GFR (MDRD) Af Amer 101 Est GFR (MDRD) Non-Af 84 BUN/Creatinine Ratio 11.1 Glucose 97 Calcium 9.2 Total Bilirubin 0.20 Direct Bilirubin 0.05 AST 17 ALT 25 Alkaline Phosphatase 77 Total Protein 7.9 Albumin 3.6 Globulin 4.3 H Lipase 268 Urine Color Yellow Urine Clarity Clear Urine pH 6.0 Ur Specific [place] 1.010 Urine Protein Negative Urine Glucose (UA) Normal Urine Ketones Negative Urine Occult Blood 10 H Urine Nitrite Negative Urine Bilirubin Negative Urine Urobilinogen Normal Ur Leukocyte Esterase Negative Urine RBC 0 SEEN Urine WBC 0 SEEN Ur Squamous Epith Cells 0-5 SEEN Urine Bacteria 0 SEEN Urine Mucus 0 SEEN Radiography Diagnostic Testing: Clinical Impression(s) from Imaging Studies Abdomen/Pelvis CT 03/06/22 13:21 IMPRESSION: Stable small nonobstructive bilateral intrarenal calculi. Status post cholecystectomy and hysterectomy. Minimal postoperative changes are seen in the pelvis. Electronically Signed: Darrel Dunbar MD at 14:39 EST , Discharge Plan Triage Chief Complaint: Female C/O ED Provider: Eduard Andino Dx/Rx/DC Orders Prescriptions: No Action multivitamin tablet 1 tab PO DAILY cetirizine [Zyrtec] 10 mg tablet 10 mg PO DAILY PRN (Reason: allergies) atenolol 25 mg tablet 25 mg PO DAILY potassium chloride 20 mEq tablet extended release 20 meq PO DAILY baclofen 10 mg tablet 10 mg PO BID PRN (Reason: muscle pain) Qty: 60 2RF ondansetron 4 mg tablet,disintegrating 4 mg PO Q8H PRN (Reason: nausea and vomiting) Qty: 90 1RF albuterol sulfate 1 INHALER inhaler 1 - 2 puff INHALATION Q6H PRN PRN (Reason: Asthma) pantoprazole 40 mg tablet,delayed release (DR/EC) 40 mg PO DAILY Rx Instructions: TAKE 1 TABLET BY MOUTH EVERY DAY ketoconazole 2 % cream 1 applic topical BID 21 Days Qty: 30 0RF mesalamine 4 gram/60 mL enema 4 g MN QHS Qty: 1680 0RF sucralfate 100 mg/mL suspension 10 ml PO QACHS Qty: 1000 0RF Primary Care Provider: Anant Curran Referrals: Anant Curran DO [Primary Care Provider] -
[2022-03-06] MEDS: Morphine 4 MG/ML Syringe IV (13:41)
[2022-03-06] MEDS: Ondansetron 4 MG/2 ML Vial IV (13:41)
[2022-03-06 13:54] LABS: Bacteria 0 SEEN /hpf (None Seen); Mucous, Urine 0 SEEN /hpf (<or=2+); Red Blood Cells-Urine 0 SEEN /hpf (0-5); White Blood Cells 0 SEEN /hpf (0-5)
[2022-03-06 13:59] LABS: Absolute Lymphocyte Count 2.31 X10^3/uL (0.83-4.51); Absolute Neutrophil Count 4.5 X10^3/uL (2.0-7.7); Basophil# 0.03 X10^3/uL; Basophil% 0.4 % (0-1); Eosinophil# 0.35 X10^3/uL; Eosinophils% 4.6 % (0-5); Hematocrit 38.6 % (37-47); Hemoglobin 12.3 g/dL (12.0-15.0); Lymphocyte # 2.31 X10^3/ul (0.83-4.51); Lymphocyte % 30.4 % (19-41); Mean Corp Hgb Conc 31.9 g/dL (32-36); Mean Corpuscular Hgb 27.1 pg (27.0-32.0); Mean Platelet Vol. 8.9 fl (6.2-12.0); Monocyte% 5.3 % (0-10); NRBC Flagged by Analyzer 0 % (0-5); Neutrophil # 4.49 X10^3/uL (2.7-7.7); Platelet Count 313 K/mm3 (150-450); RBC Distribution Width CV 13.3 % (11.6-14.6); RBC Distribution Width SD 41.7 fl (35.1-43.9); Red Blood Count 4.54 M/mm3 (4.2-5.4); White Blood Count 7.6 K/mm3 (4.4-11.0)
[2022-03-06 14:00] VITALS: BP 133/77; PULSE 72; RESP 14; TEMP 36.6; O2SAT 99
[2022-03-06 14:00] LABS: Color, Urine Yellow (Yellow); Glucose, Dipstick Normal (Normal); Ketone-Dipstick Negative (Negative); Leukocyte Esterase-Dipstick Negative /ul (Negative); Nitrite-Dipstick Negative (Negative); Occult Blood-Urine 10 /ul (Negative); Protein-Dipstick Negative (Negative); Urine Bilirubin Dipstick Negative (Negative); Urine Clarity Clear (Clear); Urine Urobilinogen Normal (Normal)
[2022-03-06 14:10] LABS: Squamous Epithelial Cells - UA 0-5 SEEN /hpf (5-10)
[2022-03-06 14:15] LABS: AST(SGOT) 17 U/L (15-37); Alanine Aminotransfer ALT/SGPT 25 U/L (13-56); Albumin, Serum 3.6 g/dL (3.2-5.0); Alkaline Phosphatase 77 U/L (45-117); Anion Gap 6 (5-15); BUN 9 mg/dL (7-18); BUN/Creat Ratio 11.1 RATIO (10-20); Bilirubin, Direct 0.05 mg/dL (0.00-0.30); Calcium,Total 9.2 mg/dL (8.5-10.1); Chloride 108 mmol/L (98-107); Creatinine, Serum 0.81 mg/dL (0.55-1.02); EST Glomerular Filtration Rate 84 mL/min (>60); Est Glom Filt Rate - Afr Amer 101 mL/min (>60); Globulin 4.3 g/dL (2.2-4.2); Glucose 97 mg/dL (74-106); Lipase 268 U/L (73-393); Potassium 3.7 mmol/L (3.5-5.1); Protein, Total 7.9 g/dL (6.4-8.2); Sodium Level 139 mmol/L (136-145)
== END 2022-03-06 15:18 | disposition home or self-care (01) ==
PROVIDERS: Emergency Provider Emergency Medicine; PCP Family Medicine; Visit Provider Emergency Medicine
DX: R10.31 Right lower quadrant pain (principal); I10 Essential (primary) hypertension; R35.0 Frequency of micturition; J45.909 Unspecified asthma, uncomplicated; E66.9 Obesity, unspecified
CPT/HCPCS: 74176; 80048; 80076; 81001; 83690; 85025; 96374; 96375; 99283; J7030; A4216; J2405

== ENCOUNTER → 2022-04-17 | Outpatient (CLI) | payer MEDICAID, SELFPAY ==
[2022-04-17 12:22] LABS: Color, Urine Straw (Yellow); Glucose, Dipstick Normal (Normal); Ketone-Dipstick Negative (Negative); Leukocyte Esterase-Dipstick Negative /ul (Negative); Nitrite-Dipstick Negative (Negative); Occult Blood-Urine Negative /ul (Negative); Protein-Dipstick Negative (Negative); Urine Bilirubin Dipstick Negative (Negative); Urine Clarity Clear (Clear); Urine Urobilinogen Normal (Normal); Urine pH 6.5 (5.0 - 8.0)
[2022-04-17 12:27] LABS: Absolute Lymphocyte Count 2.16 X10^3/uL (0.83-4.51); Absolute Neutrophil Count 5.3 X10^3/uL (2.0-7.7); Basophil# 0.04 X10^3/uL; Basophil% 0.5 % (0-1); Eosinophil# 0.18 X10^3/uL; Eosinophils% 2.2 % (0-5); Hematocrit 41.5 % (37-47); Hemoglobin 13.4 g/dL (12.0-15.0); Lymphocyte # 2.16 X10^3/ul (0.83-4.51); Lymphocyte % 26.7 % (19-41); Mean Corp Hgb Conc 32.3 g/dL (32-36); Mean Corpuscular Hgb 27.5 pg (27.0-32.0); Mean Platelet Vol. 9.5 fl (6.2-12.0); Monocyte# 0.36 X10^3/uL; Monocyte% 4.5 % (0-10); NRBC Flagged by Analyzer 0 % (0-5); Neutrophil % 65.6 % (47-70); Platelet Count 344 K/mm3 (150-450); RBC Distribution Width SD 40.4 fl (35.1-43.9); Red Blood Count 4.88 M/mm3 (4.2-5.4); White Blood Count 8.1 K/mm3 (4.4-11.0)
[2022-04-17 12:53] LABS: ALB/GLOB Ratio 0.8 RATIO (0.9-2.4); AST(SGOT) 18 U/L (15-37); Alanine Aminotransfer ALT/SGPT 27 U/L (13-56); Alkaline Phosphatase 94 U/L (45-117); Anion Gap 8 (5-15); BUN 8 mg/dL (7-18); BUN/Creat Ratio 11.4 RATIO (10-20); Calcium,Total 9.7 mg/dL (8.5-10.1); Chloride 104 mmol/L (98-107); EST Glomerular Filtration Rate 99 mL/min (>60); Est Glom Filt Rate - Afr Amer 120 mL/min (>60); Globulin 4.8 g/dL (2.2-4.2); Glucose 95 mg/dL (74-106); Potassium 3.7 mmol/L (3.5-5.1); Protein, Total 8.8 g/dL (6.4-8.2); Sodium Level 140 mmol/L (136-145)
== END | disposition home or self-care (01) ==
LOC: BFHLAB 10:58
PROVIDERS: PCP Family Medicine; Visit Provider Family Medicine
DX: R50.9 Fever, unspecified (principal); Z20.822 Contact with and (suspected) exposure to COVID-19
CPT/HCPCS: 87635; 36415; 80053; 81002; 85025; 87040; 87086; U0003; U0005

== ENCOUNTER 2022-04-25 15:23 | Emergency (ER) | payer MEDICAID, SELFPAY ==
[2022-04-25 15:24] VITALS: BP 125/83; PULSE 97; RESP 15; TEMP 37.2; O2SAT 98; BMI 32.9
--- NOTE | 2022-04-25 15:44 | CT_ITS ---
STUDY: CT BRAIN WITHOUT CONTRAST REASON FOR EXAM: Female, 36 years old. Headache. Fever. RADIATION DOSAGE (If Supplied By Facility): CTDIvol = ( 44.99 ) mGy, DLP = ( 745.49 ) mGycm TECHNIQUE: Transaxial CT imaging of the brain was performed without administration of intravenous contrast material. Individualized dose optimization techniques were used for this CT. COMPARISON: December 11, 2020. FINDINGS: Normal soft tissue structures. Normal calvarium. Normal size ventricles and extra-axial spaces for the patient''s age. Normal white matter tracts of the cerebral hemispheres. Normal basal ganglia and thalami. Normal brainstem. Normal cerebellum. There is no intracranial hemorrhage. There are no findings of an acute ischemic infarction. Normal visualized paranasal sinuses. CT/Brain/Head without Contrast IMPRESSION: Normal unenhanced CT scan of the brain. No interval change. Electronically Signed: Juan Antonio Garduno DO at 17:02 EST ,
--- NOTE | 2022-04-25 15:46 | CT_ITS ---
STUDY: CT ABDOMEN AND PELVIS WITHOUT CONTRAST REASON FOR EXAM: Female, 36 years old. Right upper quadrant pain. Fever. Nausea and vomiting. Status post cholecystectomy and hysterectomy. RADIATION DOSAGE (If Supplied By Facility): CTDIvol = ( 13.41 ) mGy, DLP = ( 710.10 ) mGycm TECHNIQUE: Transaxial images were obtained from the dome of the diaphragm to the symphysis pubis without oral contrast, and without intravenous contrast. Sagittal and coronal images were reconstructed. Individualized dose optimization techniques were used for this CT. COMPARISON: March 06, 2022. FINDINGS: The visualized lung bases are unremarkable. The visualized portions of the heart are within normal limits. Enlarged liver without focal mass. There is non-visualization of the gallbladder, which may be secondary to either contraction or a prior cholecystectomy. No biliary ductal dilatation. Normal spleen. Normal pancreas. Normal bilateral adrenal glands. Multiple small nonobstructing renal calculi in the right kidney. This appears stable when compared to prior study. Normal right ureter. Multiple nonobstructing left renal calculi unchanged from the prior study. Normal left ureter. Normal visualized stomach. Normal small intestine. Normal colon. The appendix is visualized and appears normal. Normal abdominal aorta. Normal inferior vena cava. Normal retroperitoneum. Normal urinary bladder. Status post hysterectomy. Unremarkable vaginal cuff. Phleboliths are seen in the pelvis. There is a soft tissue mass along the right pelvic sidewall measuring 3.8 x 3.4 x 2.8 cm centimeter retained right ovary. This has a low attenuation component suggesting cyst. No free air or free fluid is seen within the peritoneal cavity. Normal abdominal wall. Normal osseous structures. CT/Abdomen/Pelvis without Cont IMPRESSION: 1. Normal appendix. 2. Stable bilateral renal calculi without ureteral or urinary bladder abnormality. 3. Question cyst versus follicle in the retained right ovary. 4. Stable hepatomegaly. 5. No other interval change. Electronically Signed: Juan Antonio Garduno DO at 17:06 [facility] Reading Location ID and State: [facility] / [place] Tel [phone], Service support ,
--- NOTE | 2022-04-25 15:48 | EDS_ITS ---
HPI History of Present Illness Chief Complaint: Nausea/Vomiting Detail of Chief Complaint: malaise, fevers Informant: patient Onset/Context/Timing Onset: Weeks (1.5) Context: Gradual Onset Timing: Continuous Quality: tired Location: all over Current Severity: Severe Maximum Severity: Severe Worsened by: nothing Relieved by: nothing Narrative Narrative: Patient states for the past week and a half she has not felt well. She has been very tired/fatigued, had fevers off and on, she has had a runny nose in the last several days but no cough or shortness of breath or chest discomfort. Headaches, vertigo when she turns her head at times, which also causes nausea but she has been very nauseated without having vertigo as well, along with some bilateral mid abdominal pain that is off and on. Some minor vomiting but not much. No diarrhea. She had a hysterectomy 10 weeks ago, states she has had difficulty urinating ever since but that is not different or new since the fever started 1.5 weeks ago. She does have some lower abdominal pain that has been there for the past couple months since her surgery, she feels like she is generally worsening but the pain has not necessarily been. 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 She had a prior left salpingo-oophorectomy and cholecystectomy. Patient also states her left jaw has been hurting, she states she had an incomplete root canal of tooth #15 October of last year. She denies any purulent discharge but states she has had some altered taste recently. She denies any facial swelling. She states the tooth that was worked on is not hurting her but she has jaw pain in that area. [facility] Medical History Acid reflux Acute maxillary sinusitis, unspecified Anal fissure Anemia Ankylosing spondylitis Anxiety Arthritis Asthma Back pain Diarrhea Diverticulosis Ectopic cardiac beats Edema Endometriosis Exercise-induced asthma Fatigue h/o lesion removal Hematochezia Hemorrhoids Hepatic steatosis History of back problems History of fatty infiltration of liver History of Lyme disease History of steroid therapy Hypertension Irregular heart beat Kidney disease Kidney stones Leg cramps lysis of adensions (~09/2019) Medullary sponge kidney of both kidneys Migraine headache Mitral regurgitation Non-smoker Ovarian cyst PCOS (polycystic ovarian syndrome) POTS (postural orthostatic tachycardia syndrome) Prolapse of intestine Rash Reflux involving intestinal tract Restless legs Sinus tachycardia Sinus tachycardia Sleep apnea Symptomatic bradycardia Symptomatic bradycardia Syncope Tachycardia Wears glasses Home Medications multivitamin 1 tab PO DAILY 12/13/17 [History Last Taken 09/17/18] albuterol sulfate 90 mcg/actuation aerosol inhaler 1 - 2 puff inhalation Q6H PRN PRN Asthma 10/19/19 [History Last Taken Unknown] atenolol 25 mg tablet 25 mg PO DAILY 07/08/20 [History Last Taken Unknown] potassium chloride 20 mEq tablet,extended release 20 meq PO DAILY 08/06/20 [History Last Taken Unknown] baclofen 10 mg tablet 10 mg PO BID PRN muscle pain #60 tabs 02/10/21 [Rx Last T aken Unknown] ketoconazole 2 % topical cream 1 applic topical BID 3 weeks #30 grams 02/12/21 [Rx Last Taken Unknown] ondansetron 4 mg disintegrating tablet 4 mg PO Q8H PRN nausea and vomiting #90 tabs 04/18/21 [Rx Last Taken Unknown] pantoprazole 40 mg tablet,delayed release 40 mg PO DAILY gerd 05/19/21 [History Last Taken Unknown] cetirizine 10 mg tablet (Zyrtec) 10 mg PO DAILY PRN allergies 11/10/21 [History Last Taken Unknown] mesalamine 4 gram/60 mL enema 4 g (60 mL) DE QHS #1,680 mL 12/15/21 [Rx Last Taken Unknown] sucralfate 100 mg/mL oral suspension 10 ml PO QACHS #1,000 mL 12/15/21 [Rx Last Taken Unknown] meclizine 25 mg tablet 25 mg PO Q8H PRN PRN Dizziness #20 tabs 04/25/22 [Rx Last Taken Unknown] promethazine 25 mg tablet 25 mg PO Q6H PRN PRN Nausea #10 TABLETS 04/25/22 [Rx Last Taken Unknown] Allergy/AdvReac Type Severity Reaction Status Date / Time acetaminophen [From Vicodin] Allergy Severe Itching Verified 04/25/22 15:44 cephalexin monohydrate Allergy Severe Anaphylaxis Verified 04/25/22 15:44 [From Keflex] cyclobenzaprine Allergy Severe Mental Verified 04/25/22 15:44 [From Flexeril] status change hydrocodone [From Vicodin] Allergy Severe Itching Verified 04/25/22 15:44 latex Allergy Mild Swelling Verified 04/25/22 15:44 eucalyptus AdvReac Severe tachycardia, Verified 04/25/22 15:44 close airway NSAIDS (Non-Steroidal AdvReac Severe GI upset Verified 04/25/22 15:44 Anti-Inflamma tamsulosin [From Flomax] AdvReac Severe Low BP/HR Verified 04/25/22 15:44 tizanidine AdvReac Severe Low HR Verified 04/25/22 15:44 ciprofloxacin [From Cipro] AdvReac diarrhea, Verified 04/25/22 15:44 nausea, tachycardia doxycycline AdvReac Diarrhea Verified 04/25/22 15:44 Family History Mother Heart disease Hypertension Father Heart disease Diabetes Hypertension Surgical History H/O cystoscopy (~09/2019) H/O dilation and curettage (~09/2019) History of History of cholecystectomy History of hernia repair Hx laparoscopic cholecystectomy (~09/2019) Hx of removal of ovary Social History Smoking Status: Never smoker Electronic Cigarette Use: not used second hand exposure: No alcohol intake: never substance use type: does not use caffeine: No what type of physical activity do you participate in: walking frequency: 5-6 times per week seatbelt use: always do you feel safe at home: Yes additional social history: Single- Currently unemployed ROS ROS ED Constitutional Constitutional ED: Reports anorexia, body ache(s), chills, fatigue, fever(s), headache(s) and malaise Eyes Eyes: Denies blurry vision, change in vision or diplopia ENT ENT ED: Reports as per HPI, facial pain, rhinorrhea, sinus pain and vertigo; Denies dental pain, ear pain, epistaxis, lip swelling, loss taste/smell, mouth pain or sore throat Cardiovascular Cardiovascular: Denies chest pain or palpitations Respiratory/Chest Respiratory/Chest: Denies cough or dyspnea Gastrointestinal Gastrointestinal: Reports abdominal pain, nausea and vomiting; Denies diarrhea Genitourinary Genitourinary ED: Reports other Details: Initially painful and trouble urinating since my hysterectomy 10 weeks ago. No other new urinary symptoms. ; Denies dysuria or hematuria Musculoskeletal Musculoskeletal: Denies back pain or neck pain Integumentary Denies abscess or rash Neurologic Neurologic: Reports headache(s); Denies paresthesias or weakness Psychiatric Psychiatric: Denies anxiety or suicidal thoughts EXAM Physical Exam Const Vital Signs: 04/25/22 15:24 04/25/22 16:15 04/25/22 16:15 Temperature 99.0 F 98.8 F 98.8 F Temperature Source Temporal Oral Oral Pulse Rate 97 86 83 Respiratory Rate 15 18 18 Blood Pressure 125/83 H 122/66 H 122/66 H Blood Pressure Mean 97 84 84 Pulse Ox 98 96 97 Oxygen Delivery Method Room Air Room Air Room Air Positive well nourished and well developed Constitutional Narrative: Appears malaised but no distress General Appearance ED: well developed and NAD HEENT Reports TM's clear and moist mucous membranes HEENT Narrative: Mild ethmoid sinus tenderness. No other sinus abnormality or purulent nasal discharge or turbinate edema. No trismus. No dental tenderness. Normal inspe ction of the dentition and gingiva and buccal mucosa throughout, including the left maxillary. No abscesses or palpable tenderness. Tongue normal no elevation. Throat normal, no asymmetry, exudates, erythema. normocephalic and atraumatic Tympanic Membrane ED: Yes TM's clear Eyes PERRL and EOMs intact bilaterally Neck full ROM, no lymphadenopathy and supple Neck Narrative: No meningismus, forage motion. Chest Wall inspection of chest normal and palpation of chest normal Resp normal respiratory effort and clear to auscultation bilaterally Cardio regular rate, regular rhythm and no murmurs Rate: Negative for tachycardic GI non-distended GI Narrative: Mildly obese abdomen. Insert upper quadrant no guarding or rebound. Otherwise benign abdomen. Auscultation: normoactive bowel sounds Palpation: soft Back/Spine no CVA tenderness General Back: other FROM without discomfort. Extremity normal to inspection General Extremety ED: Negative for edema, pulses abnormal or tenderness General Extremity: Negative for edema or pulses abnormal Neuro oriented x3, CN's II-XII intact bilaterally and no sensory deficits noted Sensorium / Orientation: awake and alert Motor Exam: strength 5/5 throughout Psych mental status grossly normal Skin no rashes or lesions noted and no wounds MDM MDM MDM Narrative Medical decision making narrative: This patient has a lot of symptoms in addition to having fevers and not feeling well. Her vital signs are normal here and she is afebrile. Differential here is wide. She states she saw her doctor and had negative COVID and influenza test as an outpatient at the beginning of this, I repeated her COVID swab and it is negative again. Also in the differential is sinus and/or sphenoid infection, general viral syndrome, mononucleosis, less likely pneumonia since she has no cough, urine infection with urosepsis, intra-abdominal postoperative co mplication/infection, cancer-related phenomena/complications. The work-up is sickly shows a mild nonspecific leukocytosis, and everything else is negative including a monotest, COVID swab, chest x-ray 2 views of my interpretation, and urinalysis. Given all of this, as well as the vertiginous symptoms in context of a CT showing no evidence of facial or sphenoid sinusitis, is that this is all viral in etiology. My interpretation of the CTs of head, abdomen/pelvis agrees with that of the radiologist. She is not examining like meningitis. She does not have any clinical suspicion/appearance of vasculitis. We do have a respiratory viral panel. Patient is interested in it so I will send that but still discharge the patient home to follow-up, supportive care advised along with prescriptions for promethazine and meclizine to use as needed for those symptoms. She was given some fluids here as well as Zofran/Toradol and felt a little better. Lab Data Attestation: I reviewed the patient's lab results. Labs: Laboratory Results - last 24 hr 04/25/22 04/25/22 04/25/22 16:00 16:00 16:00 WBC 13.2 H RBC 4.83 Hgb 12.8 Hct 40.9 MCV 84.7 MCH 26.5 L MCHC 31.3 L RDW Std Deviation 41.1 RDW Coeff of Karon 13.3 Plt Count 313 MPV 9.1 Immature Gran % (Auto) 0.400 Neut % (Auto) 70.8 H Lymph % (Auto) 22.4 [place] % (Auto) 4.8 Eos % (Auto) 1.4 Baso % (Auto) 0.2 Absolute Neuts (auto) 9.4 H Absolute Lymphs (auto) 2.96 Nucleated RBC % 0 Sodium 141 Potassium 3.5 Chloride 103 Carbon Dioxide 30.0 Anion Gap 8 BUN 12 Creatinine 0.79 Estim Creat Clear Calc 79.87 Est GFR (MDRD) Af Amer 104 Est GFR (MDRD) Non-Af 86 BUN/Creatinine Ratio 15.1 Glucose 136 H Calcium 9.2 Total Bilirubin 0.30 AST 13 L ALT 19 Alkaline Phosphatase 78 Total Protein 7.6 Albumin 3.5 Globulin 4.1 Albumin/Globulin Ratio 0.9 Urine Color Urine Clarity Urine pH Ur Specific [place] Urine Protein Urine Glucose (UA) Urine Ketones Urine Occult Blood Urine Nitrite Urine Bilirubin Urine Urobilinogen Ur Leukocyte Esterase Urine RBC Urine WBC Ur Squamous Epith Cells Urine Bacteria Urine Mucus Monoscreen Negative 04/25/22 16:05 WBC RBC Hgb Hct MCV MCH MCHC RDW Std Deviation RDW Coeff of Karon Plt Count MPV Immature Gran % (Auto) Neut % (Auto) Lymph % (Auto) [place] % (Auto) Eos % (Auto) Baso % (Auto) Absolute Neuts (auto) Absolute Lymphs (auto) Nucleated RBC % Sodium Potassium Chloride Carbon Dioxide Anion Gap BUN Creatinine Estim Creat Clear Calc Est GFR (MDRD) Af Amer Est GFR (MDRD) Non-Af BUN/Creatinine Ratio Glucose Calcium Total Bilirubin AST ALT Alkaline Phosphatase Total Protein Albumin Globulin Albumin/Globulin Ratio Urine Color Yellow Urine Clarity Clear Urine pH 7.0 Ur Specific [place] 1.015 Urine Protein Negative Urine Glucose (UA) Normal Urine Ketones Negative Urine Occult Blood 10 H Urine Nitrite Negative Urine Bilirubin Negative Urine Urobilinogen Normal Ur Leukocyte Esterase Negative Urine RBC 0 SEEN Urine WBC 0 SEEN Ur Squamous Epith Cells 25-50 SEEN Urine Bacteria 0 SEEN Urine Mucus 0 SEEN Monoscreen Radiography Diagnostic Testing: Clinical Impression(s) from Imaging Studies Brain CT 04/25/22 15:44 IMPRESSION: Normal unenhanced CT scan of the brain. No interval change. Electronically Signed: Juan Antonio Garduno DO at 17:02 EST Reading Location ID and State: [address] [place] [address] Tel [phone], Service support , Abdomen/Pelvis CT 04/25/22 15:46 IMPRESSION: 1. Normal appendix. 2. Stable bilateral renal calculi without ureteral or urinary bladder abnormality. 3. Question cyst versus follicle in the retained right ovary. 4. Stable hepatomegaly. 5. No other interval change. Electronically Signed: Juan Antonio GardunoDO at 17:06 EST Reading Location ID and State: [address] [place] [address] Tel [phone], Service support , Chest X-Ray 04/25/22 16:50 IMPRESSION: No acute cardiopulmonary disease or major interval change. Electronically Signed: Juan Antonio GardunoDO at 17:26 EST Reading Location ID and State: [address] [place] [address] Tel [phone], Service support , Discharge Plan Triage Chief Complaint: Nausea/Vomiting ED Provider: Lazarus Lou Dx/Rx/DC Orders Clinical Impression: Acute viral syndrome, Peripheral vertigo Instructions: ED Vertigo, Unspecified, ED Viral Syndrome (Adult) Prescriptions: New meclizine [meclizine] 25 mg tablet 25 mg PO Q8H PRN PRN (Reason: Dizziness) Qty: 20 0RF promethazine [promethazine] 25 mg tablet 25 mg PO Q6H PRN PRN (Reason: Nausea) Qty: 10 0RF No Action multivitamin tablet 1 tab PO DAILY cetirizine [Zyrtec] 10 mg tablet 10 mg PO DAILY PRN (Reason: allergies) atenolol 25 mg tablet 25 mg PO DAILY potassium chloride 20 mEq tablet extended release 20 meq PO DAILY baclofen 10 mg tablet 10 mg PO BID PRN (Reason: muscle pain) Qty: 60 2RF ondansetron 4 mg tablet,disintegrating 4 mg PO Q8H PRN (Reason: nausea and vomiting) Qty: 90 1RF albuterol sulfate 1 INHALER inhaler 1 - 2 puff INHALATION Q6H PRN PRN (Reason: Asthma) pantoprazole 40 mg tablet,delayed release (DR/EC) 40 mg PO DAILY Rx Instructions: TAKE 1 TABLET BY MOUTH EVERY DAY ketoconazole 2 % cream 1 applic topical BID 21 Days Qty: 30 0RF mesalamine 4 gram/60 mL enema 4 g DE QHS Qty: 1680 0RF sucralfate 100 mg/mL suspension 10 ml PO QACHS Qty: 1000 0RF Primary Care Provider: Anant Curran Referrals: Anant Curran, [Primary Care Provider] - 3-5 Days if not improving Disposition Disposition: Home, Self Care
[2022-04-25 16:13] LABS: Bacteria 0 SEEN /hpf (None Seen); Mucous, Urine 0 SEEN /hpf (<or=2+); Red Blood Cells-Urine 0 SEEN /hpf (0-5); White Blood Cells 0 SEEN /hpf (0-5)
[2022-04-25 16:15] VITALS: BP 122/66; PULSE 83; PULSE 86; RESP 18; TEMP 37.1; O2SAT 96; O2SAT 97
[2022-04-25 16:15] LABS: Absolute Lymphocyte Count 2.96 X10^3/uL (0.83-4.51); Absolute Neutrophil Count 9.4 X10^3/uL (2.0-7.7); Basophil# 0.02 X10^3/uL; Basophil% 0.2 % (0-1); Eosinophil# 0.18 X10^3/uL; Eosinophils% 1.4 % (0-5); Hematocrit 40.9 % (37-47); Hemoglobin 12.8 g/dL (12.0-15.0); Lymphocyte # 2.96 X10^3/ul (0.83-4.51); Lymphocyte % 22.4 % (19-41); Mean Corp Hgb Conc 31.3 g/dL (32-36); Mean Corpuscular Hgb 26.5 pg (27.0-32.0); Mean Corpuscular Volume 84.7 fL (81-99); Mean Platelet Vol. 9.1 fl (6.2-12.0); Monocyte# 0.64 X10^3/uL; Monocyte% 4.8 % (0-10); NRBC Flagged by Analyzer 0 % (0-5); Neutrophil # 9.36 X10^3/uL (2.7-7.7); Neutrophil % 70.8 % (47-70); Platelet Count 313 K/mm3 (150-450); RBC Distribution Width CV 13.3 % (11.6-14.6); RBC Distribution Width SD 41.1 fl (35.1-43.9); Red Blood Count 4.83 M/mm3 (4.2-5.4); White Blood Count 13.2 K/mm3 (4.4-11.0)
[2022-04-25 16:17] LABS: Color, Urine Yellow (Yellow); Glucose, Dipstick Normal (Normal); Ketone-Dipstick Negative (Negative); Leukocyte Esterase-Dipstick Negative /ul (Negative); Nitrite-Dipstick Negative (Negative); Occult Blood-Urine 10 /ul (Negative); Protein-Dipstick Negative (Negative); Specific Gravity, Urine 1.015 (1.002-1.030); Urine Bilirubin Dipstick Negative (Negative); Urine Clarity Clear (Clear); Urine Urobilinogen Normal (Normal)
[2022-04-25] MEDS: Ketorolac 15 MG/ML Vial IV (16:24)
[2022-04-25] MEDS: Ondansetron 4 MG/2 ML Vial IV (16:24)
[2022-04-25] MEDS: 0.9% Normal Saline 1,000 ML 1000 ML IV (16:24)
[2022-04-25 16:29] LABS: Squamous Epithelial Cells - UA 25-50 SEEN /hpf (5-10)
[2022-04-25 16:29] LABS: ALB/GLOB Ratio 0.9 RATIO (0.9-2.4); AST(SGOT) 13 U/L (15-37); Alanine Aminotransfer ALT/SGPT 19 U/L (13-56); Albumin, Serum 3.5 g/dL (3.2-5.0); Alkaline Phosphatase 78 U/L (45-117); Anion Gap 8 (5-15); BUN 12 mg/dL (7-18); BUN/Creat Ratio 15.1 RATIO (10-20); Calcium,Total 9.2 mg/dL (8.5-10.1); Chloride 103 mmol/L (98-107); Creatinine, Serum 0.79 mg/dL (0.55-1.02); EST Glomerular Filtration Rate 86 mL/min (>60); Est Glom Filt Rate - Afr Amer 104 mL/min (>60); Estimated Creatinine Clearance 79.87 ml/min; Globulin 4.1 g/dL (2.2-4.2); Glucose 136 mg/dL (74-106); Internal QC Validated? YES +Cl - CLEAR BKGD; Potassium 3.5 mmol/L (3.5-5.1); Protein, Total 7.6 g/dL (6.4-8.2); Sodium Level 141 mmol/L (136-145)
[2022-04-25 16:32] LABS: Monotest Negative (Negative)
--- NOTE | 2022-04-25 16:50 | RAD_ITS ---
STUDY: X-RAY CHEST REASON FOR EXAM: Female, 36 years old. Fevers. TECHNIQUE: PA and lateral views of the chest. COMPARISON: May 04, 2021. FINDINGS: The lungs are clear and expanded. There is no demonstrated pleural abnormality. Normal size heart. Normal mediastinum and jim. Normal visualized pulmonary arteries. Normal visualized aortic arch and descending thoracic aorta. Normal visualized thoracic spine. Normal visualized ribs, clavicles, and shoulders. There is no demonstrated abnormality of the visualized soft tissue structures of the upper abdomen. RAD/Chest PA and Lateral IMPRESSION: No acute cardiopulmonary disease or major interval change. Electronically Signed: Juan Antonio Garduno DO at 17:26 [facility] ,
[2022-04-25 17:54] VITALS: BP 126/77; PULSE 74; RESP 18; O2SAT 99
[2022-04-25 18:12] VITALS: RESP 18
[2022-04-25] MEDS: Acetaminophen 500 MG Tablet 1000 MG PO (18:45)
== END 2022-04-25 18:46 | disposition home or self-care (01) ==
PROVIDERS: Emergency Provider Emergency Medicine; PCP Family Medicine; Visit Provider Emergency Medicine
DX: B34.9 Viral infection, unspecified (principal); R11.2 Nausea with vomiting, unspecified; I10 Essential (primary) hypertension; Z20.822 Contact with and (suspected) exposure to COVID-19; R68.84 Jaw pain; R51.9 Headache, unspecified; R53.81 Other malaise; H81.399 Other peripheral vertigo, unspecified ear; R50.9 Fever, unspecified
CPT/HCPCS: 70450; 71046; 74176; 80053; 81001; 85025; 86308; 87633; 87811; 96361; 96374; 96375; 99283; J7030; A4216; J2405

== ENCOUNTER → 2022-05-29 | Outpatient (CLI) | payer MEDICAID, SELFPAY ==
--- NOTE | 2022-05-29 09:08 | US_ITS ---
STUDY: ABDOMINAL ULTRASOUND - RIGHT UPPER QUADRANT REASON FOR VISIT: Female, 36 years old HEPATOMEGALY OF UNCERTAIN Etiology; fever OF UNKNOWN ORIGIN. CURRENT HX OF OVARIAN CA. TECHNIQUE: Ultrasound evaluation of the right upper quadrant was performed with real-time and static escobar-scale imaging. TECHNICAL QUALITY: Adequate. COMPARISON: Comparison is made with prior CT scan of the abdomen and pelvis dated April 25, 2022. FINDINGS: Liver: The liver is enlarged and measures 18.3 cm. There is increased echogenicity consistent with fatty infiltration. The bile ducts are within normal limits. There is hepatic color flow. The direction of portal flow is hepatopetal. There is no demonstrated mass lesion. Gallbladder: The patient is status post cholecystectomy. Common Bile Duct (C.B.D.): The common bile duct measures 4 mm. Pancreas: Normal size of the head, body and tail of the pancreas. There is normal echogenicity of the pancreas. There is no demonstrated pancreatic mass or cyst. Right Kidney: Normal size of the right kidney. The right kidney measures 10.8 cm x 5.8 cm x 4.9 cm. Normal renal cortex. The right cortex measures 1.3 cm. There is no demonstrated renal mass or cyst. There is no right hydronephrosis. US/Abdomen Limited IMPRESSION: Mild hepatomegaly and fatty infiltration of the liver. The patient is status post cholecystectomy. Electronically Signed: Darrel Dunbar MD at 13:56 EST ,
[2022-05-29 10:32] LABS: Absolute Lymphocyte Count 2.14 X10^3/uL (0.83-4.51); Absolute Neutrophil Count 4.9 X10^3/uL (2.0-7.7); Basophil# 0.04 X10^3/uL; Basophil% 0.5 % (0-1); Eosinophil# 0.14 X10^3/uL; Eosinophils% 1.8 % (0-5); Hemoglobin 12.8 g/dL (12.0-15.0); Lymphocyte # 2.14 X10^3/ul (0.83-4.51); Lymphocyte % 28.2 % (19-41); Mean Corp Hgb Conc 31.2 g/dL (32-36); Mean Corpuscular Hgb 26.4 pg (27.0-32.0); Mean Corpuscular Volume 84.7 fL (81-99); Mean Platelet Vol. 9.4 fl (6.2-12.0); Monocyte# 0.36 X10^3/uL; Monocyte% 4.7 % (0-10); NRBC Flagged by Analyzer 0 % (0-5); Neutrophil # 4.88 X10^3/uL (2.7-7.7); Neutrophil % 64.5 % (47-70); Platelet Count 297 K/mm3 (150-450); RBC Distribution Width CV 13.6 % (11.6-14.6); RBC Distribution Width SD 42.5 fl (35.1-43.9); Red Blood Count 4.84 M/mm3 (4.2-5.4); White Blood Count 7.6 K/mm3 (4.4-11.0)
[2022-05-29 10:45] LABS: Erythrocyte Sedimentation Rate 26 mm/hr (0-30)
[2022-05-29 11:03] LABS: CPK Total, Creatine Kinase 38 U/L (26-192); Troponin-I HS 4 pg/mL (3.0-54.0)
[2022-05-30 08:09] LABS: HEPATITIS B SURFACE AG Negative (Negative); Hep C Antibodies Non Reactive (Non Reactive); Hepatitis A IgM Antibody Negative (Negative); Hepatitis B Core AB IgM Negative (Negative)
[2022-05-30 11:00] LABS: Cancer Antigen 125 11.8 U/mL (0.0-38.1)
[2022-06-01 19:06] LABS: ANTINUCLEAR ANTIBODIES DIRECT Negative (Negative)
== END | disposition home or self-care (01) ==
PROVIDERS: PCP Family Medicine; Referring Provider Family Medicine; Visit Provider Family Medicine
DX: R16.0 Hepatomegaly, not elsewhere classified (principal); C56.2 Malignant neoplasm of left ovary; R07.9 Chest pain, unspecified; M54.9 Dorsalgia, unspecified
CPT/HCPCS: 36415; 76705; 80074; 82550; 84484; 85025; 85652; 86038; 86140; 86225; 86235; 86304

== ENCOUNTER → 2022-06-09 | Outpatient (CLI) | payer MEDICAID, SELFPAY ==
--- NOTE | 2022-06-09 13:56 | US_ITS ---
INDICATION: BACK PAIN/CYST EXAMINATION: Ultrasound US Pelvis Non-OB Complete TECHNIQUE: Transabdominal and transvaginal pelvic ultrasound was performed. Grayscale, spectral waveform, and color flow Doppler evaluation of the adnexa. COMPARISON: None. FINDINGS: UTERUS and RIGHT OVARY have been removed. LEFT OVARY: 2.6 x 2.7 x 3 cm. Non-enlarged, normal echogenicity. There is normal arterial inflow and venous outflow present in the left ovary. FREE FLUID: None. US/Pelvic (Non ) IMPRESSION: Unremarkable pelvic ultrasound. Electronically Signed: Erasmo Chand MD at 7:34 EDT ,
== END | disposition home or self-care (01) ==
LOC: US 13:52
PROVIDERS: PCP Family Medicine; Visit Provider Family Medicine
DX: M54.9 Dorsalgia, unspecified (principal); N83.8 Other noninflammatory disorders of ovary, fallopian tube and broad ligament
CPT/HCPCS: 76856

== ENCOUNTER → 2022-07-29 | Outpatient (CLI) | payer MEDICAID, SELFPAY ==
[2022-07-29 15:43] LABS: Absolute Lymphocyte Count 2.99 X10^3/uL (0.83-4.51); Absolute Neutrophil Count 5.9 X10^3/uL (2.0-7.7); Basophil# 0.04 X10^3/uL; Basophil% 0.4 % (0-1); Eosinophil# 0.15 X10^3/uL; Eosinophils% 1.6 % (0-5); Hematocrit 40.4 % (37-47); Hemoglobin 12.9 g/dL (12.0-15.0); Lymphocyte # 2.99 X10^3/ul (0.83-4.51); Lymphocyte % 31.1 % (19-41); Mean Corp Hgb Conc 31.9 g/dL (32-36); Mean Corpuscular Hgb 27.3 pg (27.0-32.0); Mean Corpuscular Volume 85.6 fL (81-99); Mean Platelet Vol. 9.1 fl (6.2-12.0); Monocyte# 0.47 X10^3/uL; Monocyte% 4.9 % (0-10); NRBC Flagged by Analyzer 0 % (0-5); Neutrophil # 5.92 X10^3/uL (2.7-7.7); Neutrophil % 61.6 % (47-70); Platelet Count 319 K/mm3 (150-450); RBC Distribution Width CV 13.4 % (11.6-14.6); RBC Distribution Width SD 42.1 fl (35.1-43.9); Red Blood Count 4.72 M/mm3 (4.2-5.4); White Blood Count 9.6 K/mm3 (4.4-11.0)
[2022-07-29 15:53] LABS: Color, Urine Yellow (Yellow); Glucose, Dipstick Normal (Normal); Ketone-Dipstick Negative (Negative); Leukocyte Esterase-Dipstick 25 /ul (Negative); Nitrite-Dipstick Negative (Negative); Occult Blood-Urine 10 /ul (Negative); Protein-Dipstick 15 mg/dl (Negative); Urine Bilirubin Dipstick Negative (Negative); Urine Clarity Sl. Cloudy (Clear); Urine Urobilinogen Normal (Normal)
[2022-07-29 16:51] LABS: Insulin 131.4 mU/L (2.6-37.6); Vitamin D,25 Hydroxy 37.5 ng/mL
[2022-07-29 17:09] LABS: ALB/GLOB Ratio 0.8 RATIO (0.9-2.4); AST(SGOT) 22 U/L (15-37); Alanine Aminotransfer ALT/SGPT 29 U/L (13-56); Albumin, Serum 3.6 g/dL (3.2-5.0); Alkaline Phosphatase 78 U/L (45-117); BUN 13 mg/dL (7-18); BUN/Creat Ratio 17.8 RATIO (10-20); Calcium,Total 9.5 mg/dL (8.5-10.1); Cholesterol 192 mg/dL (200); Creatinine, Serum 0.73 mg/dL (0.55-1.02); EST Glomerular Filtration Rate 94 mL/min (>60); Est Glom Filt Rate - Afr Amer 114 mL/min (>60); Globulin 4.4 g/dL (2.2-4.2); Glucose 86 mg/dL (74-106); Triglycerides 442 mg/dL
[2022-07-29 17:10] LABS: Anion Gap 7 (5-15); Chloride 106 mmol/L (98-107); Follicle Stimulating Hormone 1.3 mIU/mL; High Density Lipoprotein 35 mg/dL; Luteinizing Hormone 0.5 mIU/mL; Potassium 3.5 mmol/L (3.5-5.1); Sodium Level 139 mmol/L (136-145); Thyroid Stim Hormone (TSH) 0.48 uIU/mL (0.358-3.74)
== END | disposition home or self-care (01) ==
LOC: LAB 14:51
PROVIDERS: PCP Family Medicine; Referring Provider Family Medicine; Visit Provider Family Medicine
DX: R50.9 Fever, unspecified (principal); R19.7 Diarrhea, unspecified; R53.83 Other fatigue; R23.2 Flushing; E16.2 Hypoglycemia, unspecified; E78.5 Hyperlipidemia, unspecified
CPT/HCPCS: 36415; 80053; 80061; 81002; 82306; 82533; 82627; 83001; 83002; 83525; 84403; 84443; 85025; 82626

== ENCOUNTER → 2022-07-30 | Outpatient (CLI) | payer MEDICAID, SELFPAY | END | disposition home or self-care (01) | LOC: LAB 08:08 | PROVIDERS: PCP Family Medicine; Referring Provider Family Medicine; Visit Provider Family Medicine | DX: R50.9 Fever, unspecified (principal); R19.7 Diarrhea, unspecified; R53.83 Other fatigue; R23.2 Flushing; E16.2 Hypoglycemia, unspecified; E78.5 Hyperlipidemia, unspecified | CPT/HCPCS: 83630; 87177; 87209; 87493; 87506 ==

== ENCOUNTER 2022-07-31 13:58 | Emergency (ER) | payer MEDICAID, SELFPAY ==
[2022-07-31 13:59] VITALS: BP 119/78; PULSE 84; RESP 18; TEMP 35.6; O2SAT 100; BMI 32.9
--- NOTE | 2022-07-31 14:15 | RAD_ITS ---
STUDY: X-RAY - RIGHT HAND REASON FOR EXAM: Female, 36 years old. Injury to right index finger TECHNIQUE: 3 view(s) of the hand. COMPARISON: None. FINDINGS: Normal radiocarpal articulation. Normal distal radioulnar joint. Normal visualized carpal bones. Normal carpal articulations Normal carpometacarpal articulation of the thumb. Normal second through fifth carpometacarpal joints. Normal metacarpi. Normal metacarpophalangeal joint of the thumb. Normal interphalangeal joint of the thumb. Normal proximal and distal phalanges of the thumb. Normal metacarpophalangeal joints of the second through fifth fingers. Normal proximal and distal interphalangeal joints of the second through fifth fingers. Comminuted nondisplaced fracture of the tuft of the distal phalanx of the index finger. Soft tissue swelling. RAD/Hand Min 3 Views IMPRESSION: Nondisplaced comminuted fracture of the tuft of the distal phalanx of the second digit with overlying soft tissue swelling. Electronically Signed: Darrel Dunbar MD at 14:28 EDT ,
--- NOTE | 2022-07-31 15:13 | EX.ED.UPPERE ---
HPI History of Present Illness Chief Complaint: Upper Extremity Injury Informant: patient Narrative Narrative: Patient presents with rock hitting her right dominant hand index finger. No other injury. She states ice is made it much better. She is not on any blood thinners. [facility] Medical History Acid reflux Acute maxillary sinusitis, unspecified Anal fissure Anemia Ankylosing spondylitis Anxiety Arthritis Asthma Back pain Diarrhea Diverticulosis Ectopic cardiac beats Edema Endometriosis Exercise-induced asthma Fatigue h/o lesion removal Hematochezia Hemorrhoids Hepatic steatosis History of back problems History of fatty infiltration of liver History of Lyme disease History of steroid therapy Hypertension Irregular heart beat Kidney disease Kidney stones Leg cramps lysis of adensions (~09/2019) Medullary sponge kidney of both kidneys Migraine headache Mitral regurgitation Non-smoker Ovarian cyst PCOS (polycystic ovarian syndrome) POTS (postural orthostatic tachycardia syndrome) Prolapse of intestine Rash Reflux involving intestinal tract Restless legs Sinus tachycardia Sinus tachycardia Sleep apnea Symptomatic bradycardia Symptomatic bradycardia Syncope Tachycardia Wears glasses Home Medications multivitamin 1 tab PO DAILY 12/13/17 [History Last Taken 09/17/18] albuterol sulfate 90 mcg/actuation aerosol inhaler 1 - 2 puff inhalation Q6H PRN PRN Asthma 10/19/19 [History Last Taken Unknown] atenolol 25 mg tablet 25 mg PO DAILY 07/08/20 [History Last Taken Unknown] potassium chloride 20 mEq tablet,extended release 20 meq PO DAILY 08/06/20 [History Last Taken Unknown] baclofen 10 mg tablet 10 mg PO BID PRN muscle pain #60 tabs 02/10/21 [Rx Last Taken Unknown] ketoconazole 2 % topical cream 1 applic topical BID 3 weeks #30 grams 02/12/21 [Rx Last Taken Unknown] ondansetron 4 mg disintegrating tablet 4 mg PO Q8H PRN nausea and vomiting #90 tabs 04/18/21 [Rx Last Taken Unknown] pantoprazole 40 mg tablet,delayed release 40 mg PO DAILY gerd 05/19/21 [History Last Taken Unknown] cetirizine 10 mg tablet (Zyrtec) 10 mg PO DAILY PRN allergies 11/10/21 [History Last Taken Unknown] mesalamine 4 gram/60 mL enema 4 g (60 mL) IN QHS #1,680 mL 12/15/21 [Rx Last Taken Unknown] sucralfate 100 mg/mL oral suspension 10 ml PO QACHS #1,000 mL 12/15/21 [Rx Last Taken Unknown] meclizine 25 mg tablet 25 mg PO Q8H PRN PRN Dizziness #20 tabs 04/25/22 [Rx Last Taken Unknown] promethazine 25 mg tablet 25 mg PO Q6H PRN PRN Nausea #10 TABLETS 04/25/22 [Rx Last Taken Unknown] ceftriaxone 250 mg solution for injection 1 g IM ONCE #1 ea 05/27/22 [Rx Last Taken Unknown] Allergy/AdvReac Type Severity Reaction Status Date / Time acetaminophen [From Vicodin] Allergy Severe Itching Verified 07/31/22 13:58 cephalexin monohydrate Allergy Severe Anaphylaxis Verified 07/31/22 13:58 [From Keflex] cyclobenzaprine Allergy Severe Mental Verified 07/31/22 13:58 [From Flexeril] status change hydrocodone [From Vicodin] Allergy Severe Itching Verified 07/31/22 13:58 latex Allergy Mild Swelling Verified 07/31/22 13:58 eucalyptus AdvReac Severe tachycardia, Verified 07/31/22 13:58 close airway NSAIDS (Non-Steroidal AdvReac Severe GI upset Verified 07/31/22 13:58 Anti-Inflamma tamsulosin [From Flomax] AdvReac Severe Low BP/HR Verified 07/31/22 13:58 tizanidine AdvReac Severe Low HR Verified 07/31/22 13:58 ciprofloxacin [From Cipro] AdvReac diarrhea, Verified 07/31/22 13:58 nausea, tachycardia doxycycline AdvReac Diarrhea Verified 07/31/22 13:58 Family History Mother Heart disease Hypertension Father Heart disease Diabetes Hypertension Surgical History H/O cystoscopy (~09/2019) H/O dilation and curettage (~09/2019) History of History of cholecystectomy History of hernia repair Hx laparoscopic cholecystectomy (~09/2019) Hx of removal of ovary Social History Smoking Status: Never smoker Electronic Cigarette Use: not used second hand exposure: No alcohol intake: never substance use type: does not use caffeine: No what type of physical activity do you participate in: walking frequency: 5-6 times per week seatbelt use: always do you feel safe at home: Yes additional social history: Single- Currently unemployed ROS ROS ED Constitutional Constitutional ED: Denies fever(s) Gastrointestinal Gastrointestinal: Denies nausea or vomiting Musculoskeletal Musculoskeletal: Reports other Details: See history of present illness Integumentary Reports other Details: Injury to right index fingertip Neurologic Neurologic: Denies weakness Hematologic/Lymphatic Hematologic/Lymphatic: Denies easy bleeding or easy bruising EXAM Physical Exam Narrative Exam Narrative: Patient awake alert no acute distress. Walked into the room easily. HEENT shows no trauma Cardiorespiratory shows easy unlabored breathing Extremities were normal other than she has obvious contusion around the distal tuft of her right index finger. The proximal 30% does have a little bit of blood under the nail. But distally it still intact. The nail is not lifted up. It does not need to be removed or repositioned. There is a little bit of swelling the fingertip. Her extensor tendon and flexor tendons are all intact. Const Vital Signs: 07/31/22 13:59 Temperature 96.1 F L Temperature Source Temporal Pulse Rate 84 Respiratory Rate 18 Blood Pressure 119/78 Blood Pressure Mean 91 Pulse Ox 100 Oxygen Delivery Method Room Air MDM MDM MDM Narrative Medical decision making narrative: I discussed options with the patient. She really does not want trephination to be done. I explained the benefits of this but that it is not required. We discussed continuing using ice nonsteroidals for pain. She should also elevate her hand above the heart as this will help reduce pain. Her finger should heal well. I do not see an indication for antibiotics. We also offered finger splint just to protect the tip. I will give her a dose of pain meds here. Radiography Diagnostic Testing: Clinical Impression(s) from Imaging Studies Hand X-Ray 07/31/22 14:15 IMPRESSION: Nondisplaced comminuted fracture of the tuft of the distal phalanx of the second digit with overlying soft tissue swelling. Electronically Signed: Darrel Dunbar MD at 14:28 EDT , Discharge Plan Triage Chief Complaint: Upper Extremity Injury ED Provider: Nato Briseno Dx/Rx/DC Orders Clinical Impression: Closed fracture of tuft of distal phalanx of right index finger Instructions: ED Fracture, Finger, Closed Prescriptions: No Action multivitamin tablet 1 tab PO DAILY cetirizine [Zyrtec] 10 mg tablet 10 mg PO DAILY PRN (Reason: allergies) atenolol 25 mg tablet 25 mg PO DAILY potassium chloride 20 mEq tablet extended release 20 meq PO DAILY baclofen 10 mg tablet 10 mg PO BID PRN (Reason: muscle pain) Qty: 60 2RF ondansetron 4 mg tablet,disintegrating 4 mg PO Q8H PRN (Reason: nausea and vomiting) Qty: 90 1RF albuterol sulfate 1 INHALER inhaler 1 - 2 puff INHALATION Q6H PRN PRN (Reason: Asthma) pantoprazole 40 mg tablet,delayed release (DR/EC) 40 mg PO DAILY Rx Instructions: TAKE 1 TABLET BY MOUTH EVERY DAY ketoconazole 2 % cream 1 applic topical BID 21 Days Qty: 30 0RF meclizine [meclizine] 25 mg tablet 25 mg PO Q8H PRN PRN (Reason: Dizziness) Qty: 20 0RF promethazine [promethazine] 25 mg tablet 25 mg PO Q6H PRN PRN (Reason: Nausea) Qty: 10 0RF mesalamine 4 gram/60 mL enema 4 g IN QHS Qty: 1680 0RF sucralfate 100 mg/mL suspension 10 ml PO QACHS Qty: 1000 0RF ceftriaxone 250 mg recon soln 1 g IM ONCE Qty: 1 0RF Primary Care Provider: Anant Curran Referrals: Anant Curran DO [Primary Care Provider] - 1 Week if not improving Disposition Disposition: Home, Self Care
[2022-07-31] MEDS: oxyCODONE 5 MG Tablet PO (15:30)
== END 2022-07-31 15:37 | disposition home or self-care (01) ==
PROVIDERS: Emergency Provider Emergency Medicine; PCP Family Medicine; Visit Provider Emergency Medicine
DX: S62.630A Displaced fracture of distal phalanx of right index finger, initial encounter for closed fracture (principal); I10 Essential (primary) hypertension; W22.8XXA Striking against or struck by other objects, initial encounter; J45.909 Unspecified asthma, uncomplicated
CPT/HCPCS: 73130; 99283

== ENCOUNTER → 2022-10-01 | Outpatient (CLI) | payer MEDICAID, SELFPAY ==
--- NOTE | 2022-10-01 12:40 | RAD_ITS ---
INDICATION: abdominal pain EXAMINATION/TECHNIQUE: X-RAY - XR Abdomen 1 View COMPARISON: CT abdomen and pelvis 04/25/2022 FINDINGS: The bowel gas pattern is normal. There is no bowel obstruction. Sensitivity for free air limited on supine view. A few small calcific densities overlying the renal shadows, likely small calculi, largest left kidney lower pole approximately 5 mm. Multiple calcifications in the pelvis are likely phleboliths. The lung bases are clear. RAD/Abdomen Single View IMPRESSION: Multiple bilateral renal calculi. Multiple pelvic calcifications likely phleboliths. CT may be helpful to evaluate for ureteral calculus if clinically indicated. Electronically Signed: Catherine Segal MD at 22:54 EDT ,
== END | disposition home or self-care (01) ==
LOC: RAD 12:35
PROVIDERS: PCP Family Medicine; Referring Provider Internal Medicine Gastroenterology; Visit Provider Internal Medicine Gastroenterology
DX: R10.9 Unspecified abdominal pain (principal)
CPT/HCPCS: 74018

== ENCOUNTER → 2022-10-05 | Outpatient (CLI) | payer MEDICAID, SELFPAY ==
[2022-10-05 15:00] LABS: Bacteria 0 SEEN /hpf (None Seen); White Blood Cells 0 SEEN /hpf (0-5)
[2022-10-05 18:03] LABS: Absolute Lymphocyte Count 2.45 X10^3/uL (0.83-4.51); Absolute Neutrophil Count 4.5 X10^3/uL (2.0-7.7); Basophil# 0.04 X10^3/uL; Basophil% 0.5 % (0-1); Eosinophil# 0.23 X10^3/uL; Hematocrit 39.4 % (37-47); Hemoglobin 12.8 g/dL (12.0-15.0); Lymphocyte # 2.45 X10^3/ul (0.83-4.51); Lymphocyte % 32.1 % (19-41); Mean Corp Hgb Conc 32.5 g/dL (32-36); Mean Corpuscular Volume 86.2 fL (81-99); Mean Platelet Vol. 9.8 fl (6.2-12.0); Monocyte# 0.45 X10^3/uL; Monocyte% 5.9 % (0-10); NRBC Flagged by Analyzer 0 % (0-5); Neutrophil # 4.47 X10^3/uL (2.7-7.7); Neutrophil % 58.5 % (47-70); Platelet Count 304 K/mm3 (150-450); RBC Distribution Width SD 40.2 fl (35.1-43.9); Red Blood Count 4.57 M/mm3 (4.2-5.4); White Blood Count 7.6 K/mm3 (4.4-11.0)
[2022-10-05 18:20] LABS: Color, Urine Yellow (Yellow); Glucose, Dipstick Normal (Normal); Ketone-Dipstick Negative (Negative); Leukocyte Esterase-Dipstick Negative /ul (Negative); Nitrite-Dipstick Negative (Negative); Occult Blood-Urine 10 /ul (Negative); Protein-Dipstick Negative (Negative); Urine Bilirubin Dipstick Negative (Negative); Urine Clarity Sl. Cloudy (Clear); Urine Urobilinogen Normal (Normal)
[2022-10-05 18:26] LABS: Erythrocyte Sedimentation Rate 4 mm/hr (0-30)
[2022-10-05 18:42] LABS: ALB/GLOB Ratio 0.9 RATIO (0.9-2.4); AST(SGOT) 19 U/L (15-37); Alanine Aminotransfer ALT/SGPT 24 U/L (13-56); Albumin, Serum 3.5 g/dL (3.2-5.0); Alkaline Phosphatase 79 U/L (45-117); Anion Gap 6 (5-15); BUN 8 mg/dL (7-18); BUN/Creat Ratio 10.6 RATIO (10-20); CRP 8.46 mg/L (0.0-3.0); Calcium,Total 8.9 mg/dL (8.5-10.1); Chloride 109 mmol/L (98-107); Creatinine, Serum 0.76 mg/dL (0.55-1.02); EST Glomerular Filtration Rate 90 mL/min (>60); Est Glom Filt Rate - Afr Amer 109 mL/min (>60); Globulin 3.9 g/dL (2.2-4.2); Glucose 94 mg/dL (74-106); Lipase 61 U/L (13-75); Potassium 3.7 mmol/L (3.5-5.1); Protein, Total 7.4 g/dL (6.4-8.2); Sodium Level 139 mmol/L (136-145)
[2022-10-05 19:01] LABS: Mucous, Urine 1+ /hpf (<or=2+); Red Blood Cells-Urine 0-5 SEEN /hpf (0-5); Squamous Epithelial Cells - UA 0-5 SEEN /hpf (5-10)
== END | disposition home or self-care (01) ==
LOC: MTLAB 14:52
PROVIDERS: PCP Family Medicine; Referring Provider Family Medicine; Visit Provider Family Medicine
DX: R10.9 Unspecified abdominal pain (principal)
CPT/HCPCS: 36415; 80053; 81001; 83690; 85025; 85652; 86140

== ENCOUNTER → 2022-10-21 | Outpatient (CLI) | payer MEDICAID, SELFPAY ==
[2022-10-22 17:07] LABS: H.Pylori Breath Test Negative (Negative)
== END | disposition home or self-care (01) ==
LOC: LAB 10:44
PROVIDERS: PCP Family Medicine; Referring Provider Family Medicine; Visit Provider Family Medicine
DX: R10.13 Epigastric pain (principal)
CPT/HCPCS: 83013

== ENCOUNTER → 2022-10-28 | Outpatient (CLI) | payer MEDICAID, SELFPAY ==
--- NOTE | 2022-10-28 12:12 | NM_ITS ---
INDICATION: EPIGASTRIC PAIN/VOMITING -- EARLY SATIETY EXAMINATION: NUCLEAR MEDICINE GASTRIC EMPTYING - NM Gastric Emptying Study (solid, liquid or both) TECHNIQUE: Radiopharmaceutical (solid portion of the exam): 1 mCi mCi of Tc99m Sulfur Colloid mixed with oat meal. Oral administration. Imaging: COMPARISON: FINDINGS: Gastric emptying time with solids: 46.42 minutes, within normal limits. This has improved since previous exam NM/Gastric Emptying Study IMPRESSION: Normal gastric emptying time with solids. Electronically Signed: Arvind Lovett MD at 22:57 EDT ,
== END | disposition home or self-care (01) ==
LOC: NM 12:10
PROVIDERS: PCP Family Medicine; Referring Provider Family Medicine; Visit Provider Family Medicine
DX: R10.13 Epigastric pain (principal); R11.10 Vomiting, unspecified
CPT/HCPCS: 78264; A9541

== ENCOUNTER → 2022-11-06 | Outpatient (CLI) | payer MEDICAID, SELFPAY ==
[2022-11-06 13:22] LABS: Absolute Lymphocyte Count 2.88 X10^3/uL (0.83-4.51); Absolute Neutrophil Count 5.2 X10^3/uL (2.0-7.7); Basophil# 0.04 X10^3/uL; Basophil% 0.5 % (0-1); Eosinophil# 0.15 X10^3/uL; Eosinophils% 1.7 % (0-5); Hematocrit 40.8 % (37-47); Hemoglobin 12.9 g/dL (12.0-15.0); Lymphocyte # 2.88 X10^3/ul (0.83-4.51); Lymphocyte % 32.5 % (19-41); Mean Corp Hgb Conc 31.6 g/dL (32-36); Mean Corpuscular Hgb 27.4 pg (27.0-32.0); Mean Corpuscular Volume 86.6 fL (81-99); Mean Platelet Vol. 9.1 fl (6.2-12.0); Monocyte# 0.62 X10^3/uL; NRBC Flagged by Analyzer 0 % (0-5); Neutrophil # 5.15 X10^3/uL (2.7-7.7); Platelet Count 302 K/mm3 (150-450); RBC Distribution Width CV 13.1 % (11.6-14.6); RBC Distribution Width SD 40.9 fl (35.1-43.9); Red Blood Count 4.71 M/mm3 (4.2-5.4); White Blood Count 8.9 K/mm3 (4.4-11.0)
[2022-11-06 13:47] LABS: AST(SGOT) 17 U/L (15-37); Alanine Aminotransfer ALT/SGPT 26 U/L (13-56); Cholesterol 197 mg/dL (200); High Density Lipoprotein 47 mg/dL; Triglycerides 258 mg/dL; Very Low Density Lipoprotein 52 mg/dL (5-40)
[2022-11-15 06:37] LABS: Testosterone Free 1.4 pg/mL (0.0-4.2)
== END | disposition home or self-care (01) ==
PROVIDERS: PCP Family Medicine
DX: L70.0 Acne vulgaris (principal); D69.2 Other nonthrombocytopenic purpura; L73.2 Hidradenitis suppurativa; L70.5 Acne excoriee; E28.2 Polycystic ovarian syndrome
CPT/HCPCS: 36415; 80061; 82627; 84402; 84450; 84460; 85025; 82626

== ENCOUNTER → 2022-11-23 | Outpatient (CLI) | payer MEDICAID, SELFPAY ==
[2022-11-23 12:24] LABS: Color, Urine Straw (Yellow); Glucose, Dipstick Normal (Normal); Ketone-Dipstick Negative (Negative); Leukocyte Esterase-Dipstick Negative /ul (Negative); Nitrite-Dipstick Negative (Negative); Occult Blood-Urine Negative /ul (Negative); Protein-Dipstick Negative (Negative); Urine Bilirubin Dipstick Negative (Negative); Urine Clarity Clear (Clear); Urine Urobilinogen Normal (Normal)
== END | disposition home or self-care (01) ==
LOC: MTLAB 10:01
PROVIDERS: PCP Family Medicine; Referring Provider Family Medicine; Visit Provider Family Medicine
DX: N39.0 Urinary tract infection, site not specified (principal)
CPT/HCPCS: 81002; 87086; 87088

== ENCOUNTER → 2022-11-26 | Outpatient (CLI) | payer MEDICAID, SELFPAY ==
--- NOTE | 2022-11-26 16:24 | RAD_ITS ---
STUDY: X-RAY - ABDOMEN/PELVIS REASON FOR EXAM: Female, 37 years old. FLANK PAIN TECHNIQUE: Single AP view of the abdomen / pelvis. COMPARISON: None. FINDINGS: Normal visualized lung bases. There is an unremarkable bowel gas pattern. There is no demonstrated free abdominal air. The visualized liver, spleen and kidneys are grossly normal in size and morphology. Normal soft tissue structures. Normal visualized osseous structures. RAD/Abdomen Single View IMPRESSION: Normal x-ray examination of the abdomen and pelvis. Electronically Signed: Matheus Garcia MD at 20:19 EDT ,
== END | disposition home or self-care (01) ==
LOC: RAD 16:19
PROVIDERS: PCP Family Medicine; Referring Provider Family Medicine; Visit Provider Family Medicine
DX: R10.9 Unspecified abdominal pain (principal); R30.0 Dysuria; Z87.442 Personal history of urinary calculi
CPT/HCPCS: 74018

== ENCOUNTER → 2023-01-02 | Outpatient (CLI) | payer MEDICAID, SELFPAY ==
--- NOTE | 2023-01-02 06:58 | MRI_ITS ---
PROCEDURE: MRI LOWER EXTREMITY LEFT TIBIA/FIBULA REASON FOR EXAM: Female, 37 years old. Injury, pain x 3 weeks, unable to bear weight, torn calf muscle. TECHNIQUE: Standardized fat and water weighted pulse sequences were obtained in all 3 orthogonal planes. COMPARISON: None. FINDINGS: There is a high T1/STIR signal fluid collection located between the soleus and medial head of the gastrocnemius muscle, overall measuring 0.8 cm AP, 1.1 cm transverse, and 5.0 cm craniocaudad (axial STIR series 4 images 9-17), compatible with a subacute hematoma. This could be due to a tear of the plantaris tendon versus partial tear of the myotendinous junction of the medial gastrocnemius. Normal anterior and lateral calf compartments, with normal muscles, crural fascia and intermuscular septa. Normal tibia and fibula, without a periosteal, cortical or cancellous marrow abnormality. There is mild subcutaneous soft tissue edema wrapping circumferentially around the inferior half of the calf. There is no solid, cystic or lipomatous mass lesion of the subcutis adipose space. MRI/Lower Ext/No Jt/w/o IMPRESSION: 0.8 x 1.1 x 5.0 cm subacute hematoma located between the soleus and medial head of the gastrocnemius muscle. Concern for tear of the plantaris tendon versus partial tear of the myotendinous junction of the medial gastrocnemius. Mild subcutaneous soft tissue edema wrapping circumferentially around the inferior half of the calf. Electronically Signed: Andrews Ruiz MD at 9:36 EDT ,
== END | disposition home or self-care (01) ==
LOC: MRI 10:14
PROVIDERS: PCP Family Medicine; Referring Provider Orthopaedic Surgery; Visit Provider Orthopaedic Surgery
DX: M79.662 Pain in left lower leg (principal)
CPT/HCPCS: 73718

== ENCOUNTER → 2023-03-10 | Outpatient (CLI) | payer MEDICAID, SELFPAY ==
--- NOTE | 2023-03-10 12:54 | ADU_ITS ---
Reason For Study: BLE Decreased Pedal Pulses Right Velocities Left Velocities Ext. Iliac Artery, dist = 96.1/7.6 cm./sec. Ext Iliac Artery, dist = 100.7 cm./sec. Common Femoral Artery, mid = 96.4 cm./sec. Common Femoral Artery, mid = 94.0 cm./sec. Supf Femoral Artery, prox = 78.3 cm./sec. Supf. Femoral Artery, prox = 87.4 cm./sec. Supf Femoral Artery, mid = 76.8 cm./sec. Supf. Femoral Artery, mid = 79.0 cm./sec. Supf Femoral Artery, dist. = 66.9 cm./sec. Supf. Femoral Artery, dist = 58.1 cm./sec. Profunda Femoral Artery = 61.0 cm./sec. Profunda Femoral Artery = 61.1 cm./sec. Popliteal Artery, mid = 58.1 cm./sec. Popliteal Artery, mid = 44.9 cm./sec. Post. Tibial Artery, prox = 62.5 cm./sec. Post. Tibial Artery, prox = 70.2 cm./sec. Post. Tibial Artery, mid = 60.3 cm./sec. Post Tibial Artery, mid = 60.3 cm./sec. Post. Tibial Artery, dist = 73.5 cm./sec. Post Tibial Artery, dist. = 69.1 cm./sec. Peroneal Artery, prox = 25.2 cm./sec. Peroneal Artery, prox = 34.0 cm./sec. Peroneal Artery, mid = 31.3 cm./sec. Peroneal Artery, mid = 34.2 cm./sec. Peroneal Artery,dist = 27.8 cm./sec. Peroneal Artery,dist. = 26.9 cm./sec. Ant. Tibial Artery, prox = 47.9 cm./sec. Ant.Tibial Artery, prox = 67.4 cm./sec. Ant. Tibial Artery, mid = 54.9 cm./sec. Ant Tibial Artery, mid = 46.5 cm./sec. Ant. Tibial Artery, dist = 38.3 cm./sec. Ant. Tibial Artery, distal = 31.8 cm./sec. VL/US Art Duplex Bilat Lower Ext Interpretation Summary Right lower extremity arteries patent with normal velocities and waveforms thro ughout. Left lower extremity arteries patent with normal velocities and waveforms throu ghout. Ordering Physician: Franny Childers Referring Physician: Anant Curran Performed By: Isak Molina RVT
--- NOTE | 2023-03-10 12:54 | VDLE_ITS ---
Reason For Study: BLE Swelling RIGHT LEFT CFV is compressible, spontaneous, phasic, CFV is compressible, spontaneous, phasic, competent and demonstrates normal competent, and demonstrates normal augmentation. augmentation. FV is compressible, spontaneous, phasic, FV is compressible, spontaneous, phasic, competent and demonstrates normal competent and demonstrates normal augmentation. augmentation. POP V is compressible, spontaneous, phasic, POP V is compressible, spontaneous, phasic, competent and demonstrates normal competent and demonstrates normal augmentation. augmentation. T/P Trunk is compressible. T/P Trunk is compressible. PTV is compressible. PTV is compressible. RT PerV is compressible. LT PerV is compressible. SFJ is competent and measures 0.77 cm. SFJ is competent and measures 0.57 cm. GSV proximal thigh measures 0.33 x 0.39 cm. GSV proximal thigh measures 0.30 x 0.32 cm. GSV at knee measures 0.28 x 0.26 cm. GSV at knee measures 0.31 x 0.35 cm. GSV is competent throughout. GSV is competent throughout. SSV proximal calf is competent and measures SSV proximal calf is competent and measures 0.18 x 0.18 cm. 0.18 x 0.18 cm. Procedure Anechoic area measuring approximately 1.11cm This is a venous duplex using B-mode, color x 0.37cm noted in Lt mid medial calf muscle. flow and spectral Doppler. Area was very sensitive to touch. Exam performed in department. The exam was diagnostic. VL/Venous Duplex US - Chris Extrem Interpretation Summary Deep veins of the bilateral lower extremities are patent and compressible segme ntally. There is no evidence of bilateral lower extremity deep vein thrombosis. The bilateral great saphenous veins appear patent and compressible segmentally. Negative for reflux bilateral Anechoic area measuring approximately 1.11cm x 0.37cm noted in Lt mid medial ca lf muscle. Ordering Physician: Franny Childers Referring Physician: Anant Curran Performed By: Isak Molina RVT
== END | disposition home or self-care (01) ==
LOC: CVS 12:54
PROVIDERS: PCP Family Medicine; Referring Provider Physician Assistant; Visit Provider Physician Assistant
DX: R09.89 Other specified symptoms and signs involving the circulatory and respiratory systems (principal); M79.669 Pain in unspecified lower leg; R60.0 Localized edema
CPT/HCPCS: 93925; 93970

== ENCOUNTER 2023-03-13 10:37 | Emergency (ER) | payer MEDICAID, SELFPAY ==
[2023-03-13 10:38] VITALS: BP 136/83; PULSE 99; RESP 18; TEMP 36.6; O2SAT 99
[2023-03-13 10:53] VITALS: PULSE 107; RESP 20; O2SAT 98; BMI 34.0
[2023-03-13] MEDS: Ibuprofen 200 MG Tablet 400 MG PO (11:27)
--- NOTE | 2023-03-13 11:29 | EX.ED.DYSGE1 ---
HPI <HARVINDER Kendall - Last Filed: 03/13/23 12:34> History of Present Illness Chief Complaint: Cold Sx Narrative Narrative: Presenting today with cold-like symptoms that she has had for the past 3 days. She reports that she has had a productive cough, headache, sore throat, nausea, fevers, and intermittent dizziness that she describes as vertigo. Patient has had vertigo in the past when she was sick. She went to [place] emergency department 3 days ago and was tested for COVID, influenza, and RSV, all were negative. She has been alternating Tylenol and ibuprofen every 6 hours but notices that she gets a fever around the 4-hour idalia. She denies chest pain, shortness of breath, abdominal pain, diarrhea, and vomiting. PFS <HARVINDER Kendall - Last Filed: 03/13/23 12:34> [facility] Medical History Acid reflux Acute maxillary sinusitis, unspecified Anal fissure Anemia Ankylosing spondylitis Anxiety Arthritis Asthma Back pain Diarrhea Diverticulosis Ectopic cardiac beats Edema Endometriosis Exercise-induced asthma Fatigue h/o lesion removal Hematochezia Hemorrhoids Hepatic steatosis History of back problems History of fatty infiltration of liver History of Lyme disease History of steroid therapy Hypertension Irregular heart beat Kidney disease Kidney stones Left leg paresthesias Leg cramps Lumbar strain lysis of adensions (~09/2019) Medullary sponge kidney of both kidneys Migraine headache Mitral regurgitation Non-smoker Ovarian cyst PCOS (polycystic ovarian syndrome) POTS (postural orthostatic tachycardia syndrome) Prolapse of intestine Rash Reflux involving intestinal tract Restless legs Sinus tachycardia Sinus tachycardia Sleep apnea Symptomatic bradycardia Symptomatic bradycardia Syncope Tachycardia Wears glasses Home Medications multivitamin 1 tab PO DAILY 12/13/17 [History Last Taken 09/17/18] albuterol sulfate 90 mcg/actuation aerosol inhaler 1 - 2 puff inhalation Q6H PRN PRN Asthma 10/19/19 [History Last Taken Unknown] atenolol 25 mg tablet 25 mg PO DAILY 07/08/20 [History Last Taken Unknown] potassium chloride 20 mEq tablet,extended release 20 meq PO DAILY 08/06/20 [History Last Taken Unknown] baclofen 10 mg tablet 10 mg PO BID PRN muscle pain #60 tabs 02/10/21 [Rx Last Taken Unknown] ketoconazole 2 % topical cream 1 applic topical BID 3 weeks #30 grams 02/12/21 [Rx Last Taken Unknown] ondansetron 4 mg disintegrating tablet 4 mg PO Q8H PRN nausea and vomiting #90 tabs 04/18/21 [Rx Last Taken Unknown] pantoprazole 40 mg tablet,delayed release 40 mg PO DAILY gerd 05/19/21 [History Last Taken Unknown] cetirizine 10 mg tablet (Zyrtec) 10 mg PO DAILY PRN allergies 11/10/21 [History Last Taken Unknown] mesalamine 4 gram/60 mL enema 4 g (60 mL) NE QHS #1,680 mL 12/15/21 [Rx Last Taken Unknown] sucralfate 100 mg/mL oral suspension 10 ml PO QACHS #1,000 mL 12/15/21 [Rx Last Taken Unknown] metaxalone 800 mg tablet 800 mg PO TID PRN muscle pain #20 tabs 03/01/23 [Rx Last Taken Unknown] prednisone 20 mg tablet 20 mg PO BID #10 tabs 03/01/23 [Rx Last Taken Unknown] guaifenesin 600 mg tablet, extended release 12 hr (Mucinex) 600 mg PO BID #14 tabs 03/13/23 [Rx Last Taken Unknown] Allergy/AdvReac Type Severity Reaction Status Date / Time cephalexin monohydrate Allergy Severe Anaphylaxis Verified 03/13/23 10:41 [From Keflex] cyclobenzaprine Allergy Severe Mental Verified 03/13/23 10:41 [From Flexeril] status change latex Allergy Mild Swelling Verified 03/13/23 10:41 eucalyptus AdvReac Severe tachycardia, Verified 03/13/23 10:41 close airway NSAIDS (Non-Steroidal AdvReac Severe GI upset Verified 03/13/23 10:41 Anti-Inflamma tamsulosin [From Flomax] AdvReac Severe Low BP/HR Verified 03/13/23 10:41 tizanidine AdvReac Severe Low HR Verified 03/13/23 10:41 ciprofloxacin [From Cipro] AdvReac diarrhea, Verified 03/13/23 10:41 nausea, tachycardia doxycycline AdvReac Diarrhea Verified 03/13/23 10:41 Family History Mother Heart disease Hypertension Father Heart disease Diabetes Hypertension Surgical History H/O cystoscopy (~09/2019) H/O dilation and curettage (~09/2019) History of History of cholecystectomy History of hernia repair Hx laparoscopic cholecystectomy (~09/2019) Hx of removal of ovary Social History Smoking Status: Never smoker Electronic Cigarette Use: not used second hand exposure: No alcohol intake: never substance use type: does not use caffeine: No what type of physical activity do you participate in: walking frequency: 5-6 times per week seatbelt use: always do you feel safe at home: Yes additional social history: Single- Currently unemployed ROS <HARVINDER Kendall - Last Filed: 03/13/23 12:34> ROS ED Constitutional Constitutional ED: Reports fatigue and fever(s) ENT ENT ED: Reports sore throat; Denies rhinorrhea Cardiovascular Cardiovascular: Denies chest pain or palpitations Respiratory/Chest Respiratory/Chest: Reports chest congestion and cough; Denies dyspnea Gastrointestinal Gastrointestinal: Reports nausea; Denies abdominal pain, diarrhea or vomiting Musculoskeletal Musculoskeletal: Denies arthralgias or myalgias Integumentary Denies rash Neurologic Neurologic: Reports headache(s) EXAM <HARVINDER Kendall - Last Filed: 03/13/23 12:34> Physical Exam Const Vital Signs: 03/13/23 10:38 03/13/23 10:53 Temperature 98 F Temperature Source Temporal Pulse Rate 99 107 H Respiratory Rate 18 20 H Blood Pressure 136/83 H Blood Pressure Mean 100 Pulse Ox 99 98 Oxygen Delivery Method Room Air Room Air Positive well nourished, well developed and no apparent distress General Appearance ED: well developed HEENT Reports normocephalic and head/scalp atraumatic HEENT Narrative: Right TM has small amount of serous fluid without any erythema or bulging, left TM clear Mouth ED: Yes moist mucous membranes normal Eyes PERRL and EOMs intact bilaterally Neck full ROM and supple Chest Wall inspection of chest normal Resp normal respiratory effort and clear to auscultation bilaterally Cardio regular rate and regular rhythm GI soft to palpation, non-tender, non-distended and no masses Back/Spine normal ROM and normal to inspection Extremity normal to inspection and full ROM Neuro oriented x3, CN's II-XII intact bilaterally, moves all extremities, no focal motor deficits and no sensory deficits noted Sensorium / Orientation: awake and alert Psych mental status grossly normal and thought process normal Skin no rashes or lesions noted and no wounds <Dr. Stewart Edmonds, DO - Last Filed: 03/13/23 12:24> Physical Exam Const Vital Signs: 03/13/23 10:38 03/13/23 10:53 Temperature 98 F Temperature Source Temporal Pulse Rate 99 107 H Respiratory Rate 18 20 H Blood Pressure 136/83 H Blood Pressure Mean 100 Pulse Ox 99 98 Oxygen Delivery Method Room Air Room Air MDM <Lluvia León PA - Last Filed: 03/13/23 12:34> [facility] MDM Narrative Medical decision making narrative: Patient presenting with cold-like symptoms she has had over the past 3 days. She is nontoxic-appearing, she is afebrile, she will be given ibuprofen here. Examination is consistent with a viral illness. Swabs were already obtained for COVID, flu, and RSV 3 days ago and were negative. Chest x-ray will be obtained to rule out pneumonia. Chest x-ray is unremarkable. I have encouraged supportive care measures, patient would like a prescription for Mucinex. She is to alternate Tylenol and ibuprofen for fevers and stay well-hydrated. She is to follow-up with her PCP and will be discharged home in stable condition. She is comfortable with plan. Radiography X-Ray: Read by ED Physician and Read by Radiologist Diagnostic Testing: Clinical Impression(s) from Imaging Studies Chest X-Ray 03/13/23 11:41 IMPRESSION: No acute cardiopulmonary abnormality. No interval change. Electronically Signed: Arden Francis MD at 12:18 EST , <Dr. Stewart Edmonds, DO - Last Filed: 03/13/23 12:24> [facility] Radiography Diagnostic Testing: Clinical Impression(s) from Imaging Studies Chest X-Ray 03/13/23 11:41 IMPRESSION: No acute cardiopulmonary abnormality. No interval change. Electronically Signed: Arden Francis MD at 12:18 EST , Treatment and Re-Evaluation :: I have personally performed a face to face assessment of the patient and have reviewed the SKYLA Note. I performed a substantive portion of the visit including all aspects of the following. My cameron findings include: History: Patient presents with cough and generalized aching that has been getting worse over the past 3 days. Patient states she had a temperature up to 104.5 at home. Patient states she has been taking Tylenol and ibuprofen for her fever which has been helping. Patient states she has been coughing up some green sputum. Patient admits to headaches and general myalgias. Patient states she does get short of breath at times. Patient states she was recently tested for COVID, influenza, and RSV which were all negative. Exam: Vital signs are stable. Patient is afebrile. Patient is in no acute distress. Oral mucosa is pink and moist. Neck is supple. Trachea is midline. There is no JVD. Heart was regular rate and rhythm. Lungs showed rhonchi in the right base. There is good respiratory effort noted. Abdomen is soft. Bowel sounds are normal. There is no tenderness. Cranial nerves II through XII are intact. There are no focal motor or sensory deficits noted. Medical Decision Making: Differential diagnosis includes pneumonia and a viral upper respiratory infection. PA and lateral chest x-ray will be obtained to assess for pneumonia. PA and lateral chest x-ray was obtained. There are 2 views. On my independent interpretation, lung carias are clear. There is normal cardiac silhouette. Bony thorax is normal. There is no acute process noted. Radiologist also interpreted the x-ray and agrees. Patient was advised of her findings. Patient was instructed to continue Tylenol and ibuprofen as needed for fevers and bodyaches. Patient was instructed to drink plenty of fluids. Patient was instructed to follow-up with her primary care physician in 5 to 7 days. Patient understood and was agreeable with the plan. All questions were answered. Discharge Plan Triage Chief Complaint: Cold Sx ED Midlevel Provider: Lluvia León ED Provider: Stewart Edmonds Dx/Rx/DC Orders Clinical Impression: Viral illness Instructions: ED Viral Syndrome (Adult) Prescriptions: New guaifenesin [Mucinex] 600 mg tablet extended release 12hr 600 mg PO BID Qty: 14 0RF No Action multivitamin tablet 1 tab PO DAILY cetirizine [Zyrtec] 10 mg tablet 10 mg PO DAILY PRN (Reason: allergies) atenolol 25 mg tablet 25 mg PO DAILY potassium chloride 20 mEq tablet extended release 20 meq PO DAILY baclofen 10 mg tablet 10 mg PO BID PRN (Reason: muscle pain) Qty: 60 2RF ondansetron 4 mg tablet,disintegrating 4 mg PO Q8H PRN (Reason: nausea and vomiting) Qty: 90 1RF prednisone 20 mg tablet 20 mg PO BID Qty: 10 0RF Rx Instructions: DO NOT TAKE until approved by [facility] metaxalone 800 mg tablet 800 mg PO TID PRN (Reason: muscle pain) Qty: 20 0RF Rx Instructions: do not take baclofen while on this medication albuterol sulfate 1 INHALER inhaler 1 - 2 puff INHALATION Q6H PRN PRN (Reason: Asthma) pantoprazole 40 mg tablet,delayed release (DR/EC) 40 mg PO DAILY Rx Instructions: TAKE 1 TABLET BY MOUTH EVERY DAY ketoconazole 2 % cream 1 applic topical BID 21 Days Qty: 30 0RF mesalamine 4 gram/60 mL enema 4 g NE QHS Qty: 1680 0RF sucralfate 100 mg/mL suspension 10 ml PO QACHS Qty: 1000 0RF Primary Care Provider: Idalia Curran Referrals: Idalia Curran DO [Primary Care Provider] - 5-7 Days Activity Restrictions/Additional Instructions: Alternate Tylenol and ibuprofen for your fever every 4 hours, be sure not to exceed 4000 mg of Tylenol in a 24-hour period. You can also take [id number] cold and flu medications or Mucinex. Return for any worsening of your symptoms, follow-up with PCP, stay well-hydrated. Disposition Disposition: Home, Self Care
--- NOTE | 2023-03-13 11:41 | RAD_ITS ---
EXAM: XR CHEST, 2 VIEWS CLINICAL INDICATION: cough TECHNIQUE: Frontal and lateral views of the chest. COMPARISON: XR Chest dated 04/25/2022 FINDINGS: LUNGS AND PLEURAL SPACES: Normal. No consolidation or edema. No pneumothorax. No effusion. HEART: Normal heart size. MEDIASTINUM: No mediastinal or hilar mass. BONES/JOINTS: No acute abnormality. RAD/Chest PA and Lateral IMPRESSION: No acute cardiopulmonary abnormality. No interval change. Electronically Signed: Arden Farncis MD at 12:18 EST ,
== END 2023-03-13 12:50 | disposition home or self-care (01) ==
PROVIDERS: Emergency Provider Emergency Medicine; PCP Family Medicine; Visit Provider Emergency Medicine
DX: B34.9 Viral infection, unspecified (principal); I10 Essential (primary) hypertension; J45.909 Unspecified asthma, uncomplicated; R51.9 Headache, unspecified
CPT/HCPCS: 71046; 99282

== ENCOUNTER → 2023-04-23 | Outpatient (CLI) | payer MEDICAID, SELFPAY ==
--- OUTSIDE RECORDS SUMMARY | 2023-04-23 15:51 | XMS RPT_ITS | CCD ---
Author Name Unknown Address [address] [facility] [address] [place] [address] Organization [facility] Care Team Providers Care Medical Specialist Name Role Phone Mayela Tyler LPN Unavailable Unavailable Ora Jin Unavailable Unavailable Ora Jin Unavailable Unavailable Rudy Branch Unavailable Unavailable Polo, Apurva Unavailable Unavailable Polo, Apurva Unavailable Unavailable Polo, Apurva Unavailable Unavailable Polo, Apurva Unavailable Unavailable Polo, Apurva Unavailable Unavailable Polo, Apurva Unavailable Unavailable Pawnate, Pratheep Unavailable Unavailable [place] ALEXANDER ([place]) Unavailable Unavailable GENESIS VELOZ (PA) Unavailable Unavailabl e Rudy Branch Primary Care Provider Rudy Branch Unavailable Unavailable Unavailable DR RUDY BRANCH DO Primary Care Physician Chito CONTI, Colleen Cheema Unavailable [employer] SENS[employer] TECHNICIAN, Canelo N Unavailable [employer] SENS[employer] TECHNICIAN, Canelo N Unavailable Maci Matta MD Unavailable Mayela Tyler LPN Unavailable Unavailable [employer] S[employer] TECHNICIAN, Canelo N Unavailable [employer] SENSING TECHNICIAN, Canelo N Unavailable [employer] SENSING TECHNICIAN, Canelo N Unavailable [employer] SENSING TECHNICIAN, Canelo N Unavailable [employer] SENSING TECHNICIAN, Canelo N Unavailable RONNY North RN, Canelo A Unavailable Unavailabl e Mary Anne, RONNY RN, Canelo A Unavailable Unavailmichelle Tyler LPN, Mayela Rob Unavailable Unavailable Jose Carlos DRISCOLL, Rudy A Primary Care Provider Raul WHARTON, Ky Lynn Unavailable [phone] Dilma DRISCOLL, Eduard R Unavailable Ky Carter MD Unavailable JOSE CARLOS DRISCOLL, DR GRANT A Primary Care Physician Ky Carter MD Unavailable Jose Acrlos , Rudy A Primary Care Provider Ky Carter MD Unavailable Dilma DRISCOLL, Eduard Bhatia Unavailable Jose Carlos , Rudy A Primary Care Provider Ky Carter MD Unavailable Wilmar Davis Attending Unavailable Rudy Branch Primary Care Unavailable PROVIDER, UNKNOWN Referring Unavailable Rudy Branch Primary Care Unavailable PROVIDER, UNKNOWN Referring Unavailable Wilmar Davis Attending Unavailable Jose Carlos DRISCOLL, Rudy A Primary Care Provider Jose Carlos DRISCOLL, Rudy A Primary Care Provider Ky Carter MD Unavailable Dilma DRISCOLL, Eduard R Unavailable Dr. Rudy Branch Primary Care Unavaila MD CHLOE Song Attending Unavailab le Jensen, Dr. Chloe Hathaway Attending Unav simón Branch, Dr. Rudy Chambers Primary Care Unavaila luca Perera DO, Eduard R Unavailable Rudy Branch Primary Care Provider [phone] Wilmar Davis MD Unavailable WILMAR DAVIS Attending Unavailable RUDY BRANCH Primary Care Unavailable MACI MATTA Referring Unavailable Jensen, Dr. Chloe Hathaway Referring Unav Ms. Thea Mercado Attending Unavailable Jose Carlos, Dr. Rudy Chambers Primary Care Unavaila Dr. Rudy Moreno Primary Care Unavaila ble Zanotti, Dr. Chloe Hathaway Admitting Unav ailable Zanotti, Dr. Chloe Hathaway Attending Unav ailable Jose Carlos, Dr. Rudy Chambers Primary Care Unavaila ble Zaangeles, Dr. Chloe Hathaway Admitting Unav ailable Zaangeles, Dr. Chloe Hathaway Attending Unav ailable William, Dr. Hellen Mchugh Referring Unavaila ble JOSE CARLOS, RUDY CHAMBERS Primary Care Unavailable JOSE CARLOS, RUDY A Primary Care Unavailable BRIGEMAN, MARK Attending Unavailable BRIGEMAN, MARK Referring Unavailable JOSE CARLOS, RUDY A Primary Care Unavailable BRYO, MARK Referring Unavailable JOSE CARLOS, RUDY A Primary Care Unavailable SEMAJ, MARK Attending Unavailable JOSE CARLOS, RUDY A Primary Care Unavailable BRYO, MARK Attending Unavailable BRLEONAMAN, MARK Attending Unavailable JOSE CARLOS, RUDY A Primary Care Unavailable SEMAJ, MARK Referring Unavailable JOSE CARLOS, RUDY A Primary Care Unavailable BRYO, MARK Referring Unavailable JOSE CARLOS, RUDY A Primary Care Unavailable SEMAJ, MARK Referring Unavailable CAMMY GÓMEZ Attending Unavailable CINDY VALLES Referring Unavailable JOSE CARLOS, RUDY A Primary Care Unavailable JOSE CARLOS DO, DR GRANT A Primary Care Unavailab sam MARIE MD, ENRIKE Glaser Attending Unavail able JOSE CARLOS DO, DR GRANT A Primary Care Unavailab sam MILLER MD, DR LAURYN Cheema Attending Unavailable JOSE CARLOS DO, DR GRANT A Primary Care Unavailab CUCO Rangel DO Attending Unavailable JOSE CARLOS DO, DR GRANT A Primary Care Unavailab DANIEL Proctor Attending Unavailable JOSE CARLOS DO, DR GRANT A Primary Care Unavailab sam DAVIS MD, DR GONG Attending Unavailabl marc REFERRING, JIMMY GASTON Attending Unavailable JOSE CARLOS DO, DR GRANT A Primary Care Unavailab le JOSE CARLOS DO, DR GRANT A Primary Care Unavailab sam MARIE MD, ENRIKE Glaser Attending Unavail able POLO PERRY MD Attending Unavailable JOSE CARLOS DO, DR GRANT A Primary Care Unavailab le Jose Carlos DO, Rudy A Primary Care Provider Jose Carlos DO, Rudy A Unavailable [phone] DANNA DAVIS Referring Unavailable JOSE CARLOS, RUDY A Primary Care Unavailable TASH DAHL Attending Unavailable JOSE CARLOS, RUDY A Primary Care Unavailable JOSE CARLOS, RUDY A Primary Care Unavailable JOSE CARLOS, RUDY A Primary Care Unavailable BOYCE, RUDY Referring Unavailable JOSE CARLOS, RUDY A Primary Care Unavailable SHAWNEE ACEVEDO Attending Unavailable JOSE CARLOS, RUDY A Primary Care Unavailable JOSE CARLOS, RUDY A Primary Care Unavailable JOSE CARLOS, RUDY A Primary Care Unavailable [place] FORD Referring Unavailable JOSE CARLOS, RUDY A Primary Care Unavailable CINDY VALLES Attending Unavailable SHAWNEE ACEVEDO Referring Unavailable JOSE CARLOS, RUDY A Primary Care Unavailable JOSE CARLOS, RUDY A Primary Care Unavailable CINDY VALLES Referring Unavailable JOSE CARLOS, RUDY A Primary Care Unavailable HELLEN THOMAS Referring Unavailable HELLEN FUENTES Attending Unavailable JOSE CARLOS, RUDY A Primary Care Unavailable [place], [place] Attending Unavailable JOSE CARLOS, RUDY A Primary Care Unavailable JOSE CARLOS, RUDY A Referring Unavailable PHYLLIS GUZMAN Referring Unavailable JOSE CARLOS, RUDY A Primary Care Unavailable JOSE CARLOS, RUDY A Primary Care Unavailable JOSE CARLOS, RUDY A Primary Care Unavailable O'ILENE, TAMIKA Referring Unavailable O'ILENE, TAMIKA Attending Unavailable JOSE CARLOS, RUDY A Primary Care Unavailable O'ILENE, TAMIKA Referring Unavailable O'ILENE, TAMIKA Attending Unavailable JOSE CARLOS, RUDY A Primary Care Unavailable O'ILENE, TAMIKA Referring Unavailable O'ILENE, TAMIKA Attending Unavailable [place], [place] Referring Unavailable JOSE CARLOS, RUDY A Primary Care Unavailable O'ILENE, TAMIKA Attending Unavailable PETAR DENNIS Attending Unavailable JOSE CARLOS, RUDY A Primary Care Unavailable JOSE CARLOS, RUDY A Primary Care Unavailable CANELO REILLY Referring Unavailable JOSE CARLOS, RUDY A Primary Care Unavailable THEA HERNANDEZ Attending Unavailable JOSE CARLOS, RUDY A Primary Care Unavailable STEFAN YI Attending Unavailable JOSE CARLOS, RUDY A Primary Care Unavailable Allergies Allergy Classification Reported Allergen(s) Allergy Type Date of Onset Reaction(s) Facility Cephalosporins (antibiotic) (1 source) Cephalexin; Translations: [Keflex] Drug Allergy Hives [facility] DO Work Phone: Doxycycline (1 source) Doxycycline; Translations: [Doxycycline Hyclate TABS] Drug Allergy Diarrhea BI-Fylelbi[facility] DO Work Phone: Hydroxychloroquine (1 source) Hydroxychloroquine ; Translations: [Plaquenil Sulfate] Drug Allergy Gatrointestinal upset NP-Tvwcujx-[facility] DO Work Phone: Latex (1 source) natural latex rubber Substance Allergy ZD-[facility]md[facility] DO Work Phone: Opioid Agonists (1 source) HYDROmorphone; Translations: [hydromorphone] Drug Allergy 2017 WS[facility] DO Work Phone: (20 sources) cephalexin; Translations: [Keflex] Drug Allergy 2013 hives and swelling, [facility] Work Phone: (20 sources) doxycycline Drug Allergy 2013 GI discomfort [facility] Work Phone: (20 sources) eucalyptus oil Drug Allergy 2007 Anaphylaxis, Hives, Shortness of breath [facility] Work Phone: (20 sources) natural latex rubber; Translations: [LATEX] allergy to substance 2008 swelling, [facility] Work Phone: (20 sources) doxycycline; Translations: [doxycycline] Drug Allergy 2008 Diarrhea, GI Upset, Other [facility] Repository (1 source) eucalyptus extract; Translations: [eucalyptus topical] Drug Allergy [facility] Repository (20 sources) acetaminophen / HYDROcodone; Translations: [HYDROCODONE-ACETA MINOPHEN] Drug Allergy 2010 Itching [facility] Repository (20 sources) Bee; Translations: [BEES] Propensity to adverse reactions (disorder) 2010 Hives, Swelling [facility] Repository (20 sources) cephalexin; Translations: [CEPHALEXIN] Drug Allergy 2002 Anaphylaxis, Hives, Unknown [facility] Rep[facility] (20 sources) cyclobenzaprine; Translations: [CYCLOBENZAPRINE] Drug Allergy 2012 Mental Status Change, Unknown [facility] Rep[facility] (20 sources) eucalyptus extract; Translations: [EUCALYPTUS] Drug Allergy 2007 Hives, Swelling, Anaphylaxis, Shortness of Breath, Other: See Comments, Unknown, Other [facility] Repository (20 sources) minocycline; Translations: [MINOCYCLINE] Drug Allergy 2007 GI Upset [facility] Repository (15 sources) NSAIDs; Translations: [NSAIDS (NON-STEROIDAL ANTI-INFLAMMATORY DRUG)] Propensity to adverse reactions to drug (disorder) 2015 Intolerance, Unknown [facility] Rep[facility] (20 sources) tiZANidine; Translations: [TIZANIDINE] Drug Allergy 2010 Mental Status Change, Other [facility] Repository (2 sources) OTHER; Translations: [OTHER] Propensity to adverse reactions (disorder) 2007 [facility] (20 sources) Latex Propensity to adverse reactions to drug 2008 Swelling, Anaphylaxis, Rash, Shortness of breath [place], [place] (10 sources) Cephalexin; Translations: [Keflex] Drug Allergy Hives [facility] Work Phone: (10 sources) Doxycycline; Translations: [Doxycycline Hyclate TABS] Drug Allergy Diarrhea -[facility] Work Phone: (14 sources) HYDROmorphone; Translations: [hydromorphone] Drug Allergy 2017 Unknown [facility] Work Phone: (20 sources) Hydroxychloroquine ; Translations: [Plaquenil Sulfate] Drug Allergy 2022 GI Upset [facility] (7 sources) Eucalyptus Oil OIL; Translations: [Eucalyptus Oil OIL] Allergy to drug (finding) [facility] Work Phone: (13 sources) Tetracycline; Translations: [tetracycline] Drug Allergy 2022 Unknown [facility] (20 sources) dilTIAZem; Translations: [DILTIAZEM HCL] Drug Allergy 2018 Intolerance, Unknown [facility] Work Phone: (20 sources) nitroglycerin suppositories [Other] Propensity to adverse reactions 2007 [facility] Work Phone: (20 sources) Ciprofloxacin; Translations: [CIPROFLOXACIN] Drug Allergy 2019 Other: See Comments, Other [facility] (20 sources) HYDROcodone; Translations: [HYDROCODONE] Drug Allergy 2018 Itching [facility] (20 sources) tamsulosin; Translations: [TAMSULOSIN] Drug Allergy 2021 Other: See Comments, Other, Syncope [facility] (1 source) Latex Allergy to substance 2008 Anaphylaxis, Rash, Shortness of breath, Swelling [facility] (1 source) ALLERGIES NOT ON FILE; Translations: [ALLERGIES NOT ON FILE] Propensity to adverse reactions (disorder) [facility] Repository (6 sources) Hydroxychloroquine ; Translations: [HYDROXYCHLOROQUIN E] Drug Allergy 2022 [facility] Other [place] Repository (5 sources) Codeine; Translations: [CODEINE] Drug Allergy 2022 [facility] Work Phone: (5 sources) Sulfamethoxazole / Trimethoprim; Translations: [SULFAMETHOXAZOLE- TRIMETHOPRIM] Drug Allergy 2022 [facility] (7 sources) Bee Venom Protein (Honey Bee); Translations: [BEE VENOM PROTEIN (HONEY BEE)] Allergy to substance 2010 Hives, [facility] Work Phone: Medications Current Medications Medication Drug Class(es) Dates Sig (Normalized) Sig (Original) acetaminophen 500 mg oral tablet (20 sources) Start: 02-10-2022 take 2 tablets by mouth every six hours acetaminophen (Tylenol) 500 mg tablet Take 2 tablets (1,000 mg) by mouth every 6 hours. 0 02/10/2022 Active Completed/Discontinued Medications Medication Drug Class(es) Dates Sig (Normalized) Sig (Original) acetaminophen 300 mg / codeine phosphate 30 mg oral tablet (20 sources) Opioid Agonist Start: 02-05-2014 End: 04-25-2014 take 1 tablet by mouth every four to six hours as needed for pain ACETAMINOPHEN-COD EINE #3 300-30 MG TABS one tablet by mouth every 4-6 hr as needed pain, avoid driving or operating machine under the influence of medication. ACETAMINOPHEN-GEETA ADDISONNE [id number] Mabel Pearce MD acyclovir 800 mg oral tablet (6 sources) Herpesvirus Nucleoside Analog DNA Polymerase Inhibitor, Herpes Simplex Virus Nucleoside Analog DNA Polymerase Inhibitor, Herpes Zoster Virus Nucleoside Analog DNA Polymerase Inhibitor Start: 07-09-2015 End: 07-16-2015 Zovirax 800 mg oral tablet Dose : 800 mg = 1 tab(s), Oral, 5x/Day, # 35 tab(s), 0 Refill(s) Start Date: 07/09/15 Stop Date: 07/16/15 Status: Ordered amoxicillin 875 mg / clavulanate 125 mg oral tablet (20 sources) Penicillin-class Antibacterial Start: 06-22-2013 End: 06-17-2015 take 1 tablet by mouth twice daily AMOXICILLIN-POT CLAVULANATE 875-125 MG TABS 1 tablet by mouth twice per day for sinusitis AMOXICILLIN-POT CLAVULANATE [id number] Rudy Branch DO azelaic acid 0.15 mg/mg topical gel (2 sources) FINACEA 15 % GEL apply to face AZELAIC ACID [id number] Colleen Dale NP baclofen vaginal suppository 10 mg (CPD) (20 sources) Start: 12-12-2021 baclofen vaginal suppository 10 mg (CPD) Unwrap and inserty 1 Suppository vaginally once daily as directed. 30 Suppository 5 12/12/2021 Active Problems Active Problems Problem Classification Problem Date Documented Da te Episodic/Chronic Abdominal pain (20 sources) Lower abdominal pain; Translations: [Abdominal pain] Onset: 2 Resolved: 1 01-08-2014 Episodic Anxiety disorders (20 sources) Anxiety state; Translations: [Generalized anxiety disorder] Onset: 9 08-01-2008 Chronic Asthma (20 sources) Exercise-induced asthma; Translations: [Exercise induced bronchospasm] Onset: 6 06-22-2013 Chronic Cancer of ovary (2 sources) Primary low grade serous adenocarcinoma of ovary; Translations: [Malignant neoplasm of unspecified ovary] Chronic Cardiac dysrhythmias (20 sources) Postural orthostatic tachycardia syndrome ; Translations: [Other specified cardiac arrhythmias] Onset: 1 08-13-2020 Chronic Diverticulosis and diverticulitis (15 sources) Diverticulosis of sigmoid colon; Translations: [Diverticulosis of colon (without mention of hemorrhage)] Onset: 3 12-31-2022 Chronic Endometriosis (20 sources) Endometriosis (clinical); Translations: [Intrauterine synechiae] Onset: 5 10-02-2014 Chronic Esophageal disorders (20 sources) Gastroesophageal reflux disease; Translations: [Gastro-esophageal reflux disease with esophagitis] Onset: 4 12-27-2013 Chronic Essential hypertension (20 sources) Essential hypertension; Translations: [Essential (primary) hypertension] Onset: 9 06-03-2018 Chronic Genitourinary congenital anomalies (20 sources) Bilateral medullary sponge kidney; 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] Onset: 1 08-13-2020 Chronic Genitourinary symptoms and ill-defined conditions (20 sources) Urge incontinence of urine; Translations: [Urge incontinence] Onset: 2 10-22-2016 Chronic Headache; including migraine (20 sources) Refractory migraine without aura; Translations: [Migraine without aura, intractable, without status migrainosus] Onset: 2 10-20-2011 Chronic Heart valve disorders (20 sources) Mitral valve regurgitation; Translations: [Nonrheumatic mitral (valve) insufficiency] 06-22-2013 Chronic Malignant neoplasm without specification of site (4 sources) Disseminated malignant neoplasm, unspecified; Translations: [Disseminated malignant neoplasm, unspecified] Onset: 3 Chronic Menstrual disorders (20 sources) Irregular periods; Translations: [Irregular menstruation, unspecified] Onset: 3 04-28-2012 Chronic Nausea and vomiting (20 sources) Nausea; Translations: [Nausea] Onset: 4 Resolved: 5 10-02-2014 Episodic Osteoarthritis (10 sources) Arthritis; Translations: [Unspecified osteoarthritis, unspecified site] Onset: 3 12-02-2013 Chronic Other bone disease and musculoskeletal deformities (1 source) Tietze's disease; Translations: [Chondrocostal junction syndrome [Tietze]] Onset: 3 Episodic Other circulatory disease (11 sources) History of clinical finding in subject; Translations: [Personal history of other diseases of circulatory system] Episodic Other circulatory disease (11 sources) H/O: rheumatic fever; Translations: [Personal history of other infectious and parasitic diseases] Episodic Other connective tissue disease (11 sources) H/O: arthritis; Translations: [Personal history of arthritis] Episodic Other diseases of bladder and urethra (20 sources) Spasm of bladder; Translations: [Other specified disorders of bladder] Onset: 6 Resolved: 6 10-09-2015 Chronic Other diseases of bladder and urethra (2 sources) Other specified disorders of bladder; Translations: [Other specified disorders of bladder] Onset: 3 Chronic Other endocrine disorders (20 sources) Polycystic ovaries; Translations: [Disorder of adrenal gland] Onset: 5 Resolved: 5 10-02-2014 Chronic Other endocrine disorders (20 sources) Polycystic ovary syndrome; Translations: [Polycystic ovaries] Onset: 8 07-05-2020 Chronic Other endocrine disorders (20 sources) Disorder of adrenal gland; Translations: [Disorder of adrenal gland, unspecified] Onset: 7 08-12-2016 Chronic Other endocrine disorders (20 sources) Polycystic ovary; Translations: [Polycystic ovarian syndrome] Onset: 8 08-01-2008 Chronic Other endocrine disorders (20 sources) Hypoadrenalism; Translations: [Unspecified adrenocortical insufficiency] Onset: 3 09-25-2010 Chronic Other female genital disorders (1 source) Vaginal bleeding; Translations: [Abnormal uterine and vaginal bleeding, unspecified] Chronic Other female genital disorders (12 sources) History of gynecological disorder; Translations: [Personal history of other genital system and obstetric disorders] Episodic Other female genital disorders (2 sources) History of endometriosis; Translations: [Personal history of other diseases of the female genital tract] Episodic Other female genital disorders (1 source) Personal history of other diseases of the female genital tract; Translations: [S/P ovarian cystectomy] Onset: 3 Episodic Other gastrointestinal disorders (20 sources) Irritable bowel syndrome; Translations: [Irritable bowel syndrome without diarrhea] Onset: 6 10-30-2015 Chronic Other gastrointestinal disorders (11 sources) Heartburn; Translations: [Heartburn] Episodic Other gastrointestinal disorders (1 source) Anismus; Translations: [Other specified symptoms and signs involving the digestive system and abdomen] Episodic Other gastrointestinal disorders (2 sources) Swelling; Translations: [Other intra-abdominal and pelvic swelling, mass and lump] Episodic Other gastrointestinal disorders (2 sources) Loose stool; Translations: [Other fecal abnormalities] Onset: 4 04-21-2023 Episodic Other gastrointestinal disorders (1 source) Dysphagia; Translations: [Dysphagia, unspecified] 04-21-2023 Episodic Other inflammatory condition of skin (4 sources) Rosacea; Translations: [Rosacea, unspecified] Onset: 0 12-31-2022 Chronic Other inflammatory condition of skin (1 source) Intertrigo; Translations: [Erythema intertrigo] Episodic Other lower respiratory disease (11 sources) H/O: asthma; Translations: [Personal history of other diseases of respiratory system] Episodic Other lower respiratory disease (1 source) Cough; Translations: [Cough, unspecified] Onset: 3 Episodic Other nervous system disorders (20 sources) Myositis; Translations: [Other inflammatory and immune myopathies, not elsewhere classified] Onset: 1 02-06-2022 Chronic Other nervous system disorders (1 source) Other chronic pain; Translations: [Chronic left-sided low back pain with left-sided sciatica] Onset: 3 Chronic Other nutritional; endocrine; and metabolic disorders (2 sources) Overweight; Translations: [Body mass index 30+ - obesity] Onset: 7 08-05-2016 Chronic Other nutritional; endocrine; and metabolic disorders (20 sources) Body mass index (BMI) 33.0-33.9, adult; Translations: [Body Mass Index 33.0-33.9, adult] Onset: 7 08-05-2016 Chronic Other nutritional; endocrine; and metabolic disorders (1 source) Obesity; Translations: [Obesity, unspecified] Chronic Other nutritional; endocrine; and metabolic disorders (20 sources) Metabolic syndrome X; Translations: [Metabolic syndrome] Onset: 6 09-03-2008 Chronic Other nutritional; endocrine; and metabolic disorders (20 sources) Obese class I; Translations: [Obesity, unspecified] Onset: 8 10-06-2017 Chronic Other nutritional; endocrine; and metabolic disorders (20 sources) Insulin resistance; Translations: [Metabolic syndrome] Onset: 6 09-11-2022 Chronic Other nutritional; endocrine; and metabolic disorders (5 sources) Obesity caused by energy imbalance; Translations: [Obesity, unspecified] Onset: 3 12-31-2022 Chronic Other nutritional; endocrine; and metabolic disorders (2 sources) Obesity, unspecified; Translations: [Obesity, Class I, BMI 30-34.9] Onset: 8 Chronic Other skin disorders (20 sources) Acne vulgaris; Translations: [Acne vulgaris] Onset: 5 05-24-2014 Episodic Other skin disorders (11 sources) H/O: psoriasis; Translations: [Personal history of diseases of skin and subcutaneous tissue] Episodic Other skin disorders (1 source) Loss of hair; Translations: [Nonscarring hair loss, unspecified] Episodic Other skin disorders (1 source) Seborrheic keratosis; Translations: [Other seborrheic keratosis] Episodic Other skin disorders (1 source) Hidradenitis suppurativa; Translations: [Hidradenitis suppurativa] Episodic Other skin disorders (1 source) Excoriated acne; Translations: [Acne excoriee] Episodic Other upper respiratory disease (20 sources) Seasonal allergic rhinitis; Translations: [Other seasonal allergic rhinitis] 06-22-2013 Chronic Other upper respiratory disease (20 sources) Chronic rhinitis; Translations: [Chronic rhinitis] Onset: 6 08-01-2008 Chronic Other upper respiratory disease (20 sources) Seasonal allergy; Translations: [Other seasonal allergic rhinitis] Onset: 2 Chronic Other upper respiratory disease (1 source) Hypertrophy of nasal turbinates; Translations: [Hypertrophy of nasal turbinates] Episodic Other upper respiratory infections (20 sources) Streptococcal sore throat; Translations: [Acute sinusitis] Onset: 4 Resolved: 6 06-22-2013 Episodic Regional enteritis and ulcerative colitis (20 sources) Crohn's disease; Translations: [Crohn's disease of small AND large intestines] Onset: 5 Resolved: 6 10-30-2015 Chronic Residual codes; unclassified (20 sources) Obstructive sleep apnea syndrome; Translations: [Obstructive sleep apnea (adult) (pediatric)] Onset: 2 02-06-2022 Chronic Residual codes; unclassified (1 source) Treatment not available; Translations: [Procedure and treatment not carried out for other reasons] Episodic Residual codes; unclassified (2 sources) Postoperative state; Translations: [Other specified postprocedural states] Episodic Residual codes; unclassified (1 source) History of left salpingo-oophorectomy; Translations: [Acquired absence of other genital organ(s)] Episodic Residual codes; unclassified (1 source) Acquired absence of both cervix and uterus; Translations: [S/P laparoscopic hysterectomy] Onset: 3 Episodic Residual codes; unclassified (1 source) Other specified postprocedural states; Translations: [S/P ovarian cystectomy] Onset: 3 Episodic Secondary malignancies (3 sources) Secondary malignant neoplasm of retroperitoneum and peritoneum; Translations: [Secondary malignant neoplasm of retroperiton and peritoneum] Onset: 3 Chronic Spondylosis; intervertebral disc disorders; other back problems (20 sources) Inflammation of sacroiliac joint; Translations: [Sacroiliitis, not elsewhere classified] Onset: 8 Resolved: 5 06-22-2013 Chronic Sprains and strains (20 sources) Strain of muscle and/or tendon of lower leg; Translations: [Strain of other muscle(s) and tendon(s) of posterior muscle group at lower leg level, unspecified leg, initial encounter] Onset: 3 Episodic Systemic lupus erythematosus and connective tissue disorders (15 sources) Undifferentiated connective tissue disease; 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] Onset: 3 12-31-2022 Chronic Unclassified (1 source) Screening for malignant neoplasm of cervix ; Translations: [Encounter for screening for malignant neoplasm of cervix] Onset: 7 10-22-2016 Unclassified (1 source) Gynecologic examination ; Translations: [Encounter for gynecological examination (general) (routine) with abnormal findings] Onset: 7 10-22-2016 Unclassified (2 sources) Unknown / UNK(Unknown) Onset: 7 Urinary tract infections (20 sources) Chronic interstitial cystitis; Translations: [Interstitial cystitis (chronic) without hematuria] Onset: 6 10-09-2015 Chronic Past or Other Problems Problem Classification Problem Date Documented Da te Episodic/Chronic Administrative/social admission (2 sources) Patient care statuses; Translations: [Genetic counseling] Onset: 3 Episodic Allergic reactions (20 sources) Contact dermatitis; Translations: [Inflammatory dermatosis] Onset: 0 Resolved: 5 01-09-2015 Episodic Anal and rectal conditions (20 sources) Anal fissure; Translations: [Anal fissure] Onset: 3 08-01-2008 Episodic Calculus of urinary tract (20 sources) Kidney stone; Translations: [Calculus of kidney] Onset: 9 06-22-2013 Episodic Cardiac dysrhythmias (20 sources) Palpitations; Translations: [Palpitations] Onset: 3 10-09-2015 Episodic Diabetes mellitus without complication (20 sources) Impaired fasting glycemia; Translations: [Impaired fasting glucose] Onset: 8 08-01-2008 Episodic Diseases of mouth; excluding dental (15 sources) Ulcer of mouth; Translations: [Other and unspecified diseases of the oral soft tissues] Onset: 3 12-31-2022 Episodic Disorders of teeth and jaw (8 sources) Dental caries; Translations: [Dental caries, unspecified] Onset: 3 06-08-2022 Episodic Gastrointestinal hemorrhage (20 sources) Rectal hemorrhage; Translations: [Hematochezia] Onset: 4 Resolved: 5 01-08-2014 Episodic Genitourinary symptoms and ill-defined conditions (20 sources) H/O: kidney disease; Translations: [Personal history of other specified urinary system disorders] Onset: 2 Resolved: 0 01-12-2012 Episodic Headache; including migraine (20 sources) Headache; Translations: [Headache] Onset: 1 04-10-2010 Episodic Hemorrhoids (20 sources) Internal hemorrhoids; Translations: [External hemorrhoids] Onset: 8 01-08-2014 Episodic Immunizations and screening for infectious disease (20 sources) Nonspecific tuberculin test reaction ; Translations: [Interferon gamma assay positive] Onset: 6 Resolved: 0 10-09-2015 Episodic Inflammation; infection of eye (except that caused by tuberculosis or sexually transmitteddisease) (20 sources) Allergic conjunctivitis of bilateral eyes; Translations: [Acute atopic conjunctivitis, bilateral] Onset: 2 Episodic Inflammatory diseases of female pelvic organs (6 sources) Vaginitis; Translations: [Acute vaginitis] Onset: 7 11-26-2016 Episodic Mycoses (20 sources) Candidiasis of vagina; Translations: [Candidiasis of vulva and vagina] Onset: 2 Resolved: 6 05-24-2015 Episodic Nonmalignant breast conditions (3 sources) Other signs and symptoms in breast; Translations: [Breast signs and symptoms] Onset: 7 12-18-2016 Episodic Other aftercare (11 sources) Drug therapy status; Translations: [Long-term (current) use of other medications] Resolved: 9 Episodic Other and unspecified benign neoplasm (20 sources) Benign neoplasm of colon; Translations: [Benign neoplasm of colon, unspecified] Onset: 3 08-01-2008 Episodic Other and unspecified benign neoplasm (4 sources) Benign neoplastic disease; Translations: [Benign neoplasm, unspecified site] Onset: 0 12-31-2022 Episodic Other bone disease and musculoskeletal deformities (20 sources) Costal chondritis; Translations: [Instability of pelvic floor] Onset: 4 Resolved: 6 10-02-2014 Episodic Other connective tissue disease (15 sources) Pelvic floor dysfunction; Translations: [Pelvic muscle wasting] Onset: 3 12-31-2022 Episodic Other connective tissue disease (11 sources) Paraparesis; Translations: [Other musculoskeletal symptoms referable to limbs] Resolved: 1 Episodic Other connective tissue disease (20 sources) Spasm; Translations: [Other muscle spasm] Onset: 1 12-04-2010 Episodic Other connective tissue disease (20 sources) Fibromyalgia; Translations: [Fibromyalgia] Onset: 8 01-08-2018 Episodic Other connective tissue disease (20 sources) Bilateral trochanteric bursitis; Translations: [Trochanteric bursitis, right hip] Onset: 0 01-18-2020 Episodic Other diseases of bladder and urethra (1 source) Spasm of bladder; Translations: [Other specified disorders of bladder] Onset: 6 Resolved: 6 10-09-2015 Episodic Other female genital disorders (20 sources) History of dysplasia of cervix; Translations: [Personal history of cervical dysplasia] Onset: 9 08-01-2008 Episodic Other gastrointestinal disorders (20 sources) Constipation; Translations: [Diarrhea] Onset: 5 Resolved: 5 05-24-2014 Episodic Other gastrointestinal disorders (20 sources) H/O: gastrointestinal disease; Translations: [Personal history of other diseases of digestive system] Resolved: 0 Episodic Other gastrointestinal disorders (20 sources) Diarrhea; Translations: [Diarrhea, unspecified] Onset: 5 Resolved: 5 01-09-2015 Episodic Other gastrointestinal disorders (20 sources) Hemorrhagic diarrhea ; Translations: [Diarrhea, unspecified] Onset: 1 Episodic Other infections; including parasitic (20 sources) Lyme disease; Translations: [Lyme Disease] Onset: 1 02-10-2011 Episodic Other inflammatory condition of skin (15 sources) Pruritus ani; Translations: [Pruritus ani] Onset: 3 12-31-2022 Episodic Other inflammatory condition of skin (20 sources) Seborrheic dermatitis; Translations: [Other seborrheic dermatitis] Onset: 1 03-08-2011 Episodic Other inflammatory condition of skin (4 sources) Lichen simplex chronicus; Translations: [Lichen simplex chronicus] Onset: 0 12-31-2022 Episodic Other liver diseases (11 sources) Enzyme level - finding; Translations: [Nonspecific elevation of levels of transaminase or lactic acid dehydrogenase [LDH]] Resolved: 9 Episodic Other nervous system disorders (4 sources) Postoperative pain ; Translations: [Other acute postprocedural pain] Onset: 9 02-15-2019 Episodic Other non-traumatic joint disorders (11 sources) Pain in wrist; Translations: [Pain in joint, forearm] Resolved: 0 Episodic Other non-traumatic joint disorders (20 sources) Pain in lower limb; Translations: [Pain in unspecified knee] Onset: 0 03-05-2010 Episodic Other nutritional; endocrine; and metabolic disorders (20 sources) Body mass index 30+ - obesity; Translations: [Body Mass Index 33.0-33.9, adult] Onset: 7 Resolved: 0 12-18-2016 Chronic Other nutritional; endocrine; and metabolic disorders (20 sources) Overweight; Translations: [Overweight] Onset: 7 08-05-2016 Episodic Other screening for suspected conditions (not mental disorders or infectious disease) (20 sources) Thyroid function tests abnormal; Translations: [Encounter for screening for other suspected endocrine disorder] Onset: 7 08-05-2016 Episodic Other skin disorders (15 sources) Cystic acne; Translations: [Other acne] Onset: 0 12-31-2022 Episodic Other skin disorders (11 sources) Mass of lower limb; Translations: [Localized superficial swelling, mass, or lump] Resolved: 9 Episodic Other skin disorders (20 sources) Hidradenitis; Translations: [Hidradenitis suppurativa] Onset: 9 09-26-2008 Episodic Other skin disorders (20 sources) Acne; Translations: [Other acne] Onset: 0 09-08-2009 Episodic Other skin disorders (20 sources) Scar; Translations: [Scar conditions and fibrosis of skin] Onset: 0 09-08-2009 Episodic Other skin disorders (20 sources) Primary focal hyperhidrosis; 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, unspecified] Onset: 0 09-08-2009 Episodic Other skin disorders (20 sources) Folliculitis; Translations: [Follicular disorder, unspecified] Onset: 0 07-12-2017 Episodic Other skin disorders (5 sources) Eruption; Translations: [Rash and other nonspecific skin eruption] Onset: 0 Episodic Other skin disorders (4 sources) Disorder of skin; Translations: [Follicular disorder, unspecified] Onset: 0 12-31-2022 Episodic Other skin disorders (1 source) Acne, unspecified; Translations: [Adult acne] Onset: 3 Episodic Other upper respiratory disease (20 sources) Deviated nasal septum; Translations: [Deviated nasal septum] Onset: 8 08-01-2008 Episodic Poisoning by nonmedicinal substances (20 sources) Anaphylaxis due to hymenoptera venom; Translations: [Toxic effect of venom of other arthropod, accidental (unintentional), initial encounter] Onset: 2 Episodic Prolapse of female genital organs (20 sources) Instability of pelvic floor; Translations: [Other female genital prolapse] Onset: 6 Resolved: 6 10-09-2015 Chronic Residual codes; unclassified (20 sources) H/O: urinary anomaly; Translations: [Personal history of unspecified urinary disorder] Resolved: 9 Episodic Residual codes; unclassified (20 sources) FH: Gout; Translations: [Family history of other diseases of the musculoskeletal system and connective tissue] Onset: 1 08-13-2020 Episodic Residual codes; unclassified (20 sources) Family history of renal stone; Translations: [Family history of disorders of kidney and ureter] Onset: 1 08-13-2020 Episodic Residual codes; unclassified (1 source) Pain, unspecified; Translations: [Pain] Onset: 3 Episodic Rheumatoid arthritis and related disease (20 sources) Ankylosing spondylitis; Translations: [Ankylosing spondylitis] Onset: 4 Resolved: 9 09-27-2013 Chronic Spondylosis; intervertebral disc disorders; other back problems (20 sources) Sciatica; Translations: [Backache] Onset: 1 04-09-2015 Episodic Unclassified (1 source) K50.90 Onset: 7 Unclassified (1 source) LT HIP THIGH PAIN Onset: 06-22-201 8 Urinary tract infections (20 sources) Urinary tract infectious disease; Translations: [Urinary tract infection, site not specified] Onset: 7 11-19-2016 Episodic Viral infection (20 sources) Herpes zoster; Translations: [Herpes simplex] Onset: 6 Resolved: 6 07-09-2015 Episodic Viral infection (1 source) Disease caused by 2019-nCoV; Translations: [COVID-19] Onset: 2 Results Test Name Value Interpretation Reference Range Facil ity Vital Signs Date Time Vital Sign Value Performing Clinician Facility 04-15-2023 10:04-0500 Body height 160 cm Stefan Yi APRN-DIRECTOR OF MARKETING ANALYTICS Work Phone: [facility] 04-15-2023 10:04-0500 Body mass index (BMI) [Ratio] 32.77 kg/m2 Stefan Yi APRN-DIRECTOR OF MARKETING ANALYTICS Work Phone: [facility] 04-15-2023 10:04-0500 Body weight 83.92 kg Stefan Yi APRN-DIRECTOR OF MARKETING ANALYTICS Work Phone: [facility] 04-15-2023 10:04-0500 Diastolic blood pressure 87 mm[Hg] Stefan Yi APRN-DIRECTOR OF MARKETING ANALYTICS Work Phone: [facility] 04-15-2023 10:04-0500 Heart rate 89 /min Stefan Yi APRN-DIRECTOR OF MARKETING ANALYTICS Work Phone: [facility] 04-15-2023 10:04-0500 Systolic blood pressure 124 mm[Hg] Stefan Yi APRN-DIRECTOR OF MARKETING ANALYTICS Work Phone: [facility] 04-06-2023 10:24-0500 Body mass index (BMI) [Ratio] 34.84 kg/m2 Canelo Reilly APRN-DIRECTOR OF MARKETING ANALYTICS Work Phone: [facility] 04-06-2023 10:24-0500 Body temperature 96.8 [degF] Canelo Reilly APRN-DIRECTOR OF MARKETING ANALYTICS Work Phone: [facility] 04-06-2023 10:24-0500 Body weight 86.4 kg Canelo Reilly OCEANOGRAPHY PROFESSOR-DIRECTOR OF MARKETING ANALYTICS Work Phone: [facility] 04-06-2023 10:24-0500 Diastolic blood pressure 85 mm[Hg] Canelo Reilly APRN-DIRECTOR OF MARKETING ANALYTICS Work Phone: [facility] 04-06-2023 10:24-0500 Heart rate 82 /min Canelo Reilly OCEANOGRAPHY PROFESSOR-DIRECTOR OF MARKETING ANALYTICS Work Phone: [facility] 04-06-2023 10:24-0500 Respiratory rate 16 /min Canelo Reilly OCEANOGRAPHY PROFESSOR-DIRECTOR OF MARKETING ANALYTICS Work Phone: [facility] 04-06-2023 10:24-0500 SaO2% (BldA) [Mass fraction] 98 % Canelo Reilly OCEANOGRAPHY PROFESSOR-DIRECTOR OF MARKETING ANALYTICS Work Phone: [facility] 04-06-2023 10:24-0500 Systolic blood pressure 133 mm[Hg] Canelo Reilly OCEANOGRAPHY PROFESSOR-DIRECTOR OF MARKETING ANALYTICS Work Phone: [facility] 03-25-2023 22:32-0500 Body height 157.5 cm NIDAL CHOUJAA DO [facility] 03-25-2023 22:32-0500 Body temperature 98.78 [degF] NIDAL CHOUJAA DO [facility] 03-25-2023 22:32-0500 Body weight 84.1 kg NIDAL CHOUJAA DO [facility] 03-25-2023 22:32-0500 Heart rate 93 /min NIDAL CHOUJAA DO [facility] 03-25-2023 22:32-0500 Respiratory rate 22 /min NIDAL CHOUJAA DO [facility] 03-14-2023 00:26-0500 Body height 157.[address] FARIDEH DAVSI MD [facility] 03-14-2023 00:26-0500 Body temperature 97.88 [degF] DR FARIDEH DAVIS MD [facility] 03-14-2023 00:26-0500 Body weight 84.[address] FARIDEH DAVIS MD [facility] 03-14-2023 00:26-0500 Diastolic Blood Pressure Non-Invasive 86 mm[Hg] DR FARIDEH DAVIS MD [facility] 03-14-2023 00:26-0500 Heart rate 104 /min DR FARIDEH DAVIS MD [facility] 03-14-2023 00:26-0500 Respiratory rate 20 /min DR FARIDEH DAVIS MD [facility] 03-14-2023 00:26-0500 Systolic Blood Pressure Non-Invasive 142 mm[Hg] DR FARIDEH DAVIS MD [facility] 02-25-2023 10:38-0500 Body weight 85.2 kg Mark Thompson MD Work Phone: [facility] 02-25-2023 10:38-0500 Diastolic blood pressure 78 mm[Hg] aMrk Thompson MD Work Phone: [facility] 02-25-2023 10:38-0500 Heart rate 84 /min Mark Thompson MD Work Phone: [facility] 02-25-2023 10:38-0500 Respiratory rate 16 /min Mark Thompson MD Work Phone: [facility] 02-25-2023 10:38-0500 SaO2% (BldA) [Mass fraction] 97 % Mark Thompson MD Work Phone: [facility] 02-25-2023 10:38-0500 Systolic blood pressure 115 mm[Hg] Mark Thompson MD Work Phone: [facility] 12-31-2022 14:26-0400 Body temperature 98.2 [degF] Liliana Lim APRN.DIRECTOR OF MARKETING ANALYTICS Work Phone: [facility] 12-31-2022 14:26-0400 Diastolic blood pressure 70 mm[Hg] Liliana Lim APRN.DIRECTOR OF MARKETING ANALYTICS Work Phone: [facility] 12-31-2022 14:26-0400 Heart rate 68 /min Liliana Lim APRN.DIRECTOR OF MARKETING ANALYTICS Work Phone: [facility] 12-31-2022 14:26-0400 Respiratory rate 16 /min Liliana Lim APRN.DIRECTOR OF MARKETING ANALYTICS Work Phone: [facility] 12-31-2022 14:26-0400 SaO2% (BldA) [Mass fraction] 97 % Liliana Lim APRN.DIRECTOR OF MARKETING ANALYTICS Work Phone: [facility] 12-31-2022 14:26-0400 Systolic blood pressure 122 mm[Hg] Liliana Lim APRN.DIRECTOR OF MARKETING ANALYTICS Work Phone: [facility] 12-11-2022 16:15-0400 Blood Pressure Location POLO PERRY MD [facility] 12-11-2022 16:15-0400 Blood Pressure Method POLO PERRY MD [facility] 12-11-2022 16:15-0400 Diastolic Blood Pressure Non-Invasive 66 1 POLO PERRY MD [facility] 12-11-2022 16:15-0400 Heart rate 79 /min POLO PERRY MD [facility] 12-11-2022 16:15-0400 Reason For Taking VItal Signs POLO PERRY MD [facility] 12-11-2022 16:15-0400 Respiratory rate 18 /min POLO PERRY MD [facility] 12-11-2022 16:15-0400 Systolic Blood Pressure Non-Invasive 114 1 POLO PERRY MD [facility] 12-11-2022 15:41-0400 Blood Pressure Location POLO PERRY MD [facility] 12-11-2022 15:41-0400 Blood Pressure Method POLO PERRY MD [facility] 12-11-2022 15:41-0400 Body temperature 98.24 [degF] POLO PERRY MD [facility] 12-11-2022 15:41-0400 Diastolic Blood Pressure Non-Invasive 75 1 POLO PERRY MD [facility] 12-11-2022 15:41-0400 Heart rate 99 /min POLO PERRY MD [facility] 12-11-2022 15:41-0400 Respiratory rate 20 /min POLO PERRY MD [facility] 12-11-2022 15:41-0400 Systolic Blood Pressure Non-Invasive 124 1 POLO PERRY MD [facility] 12-09-2022 15:30-0400 Body height 160.02 cm Rudy Branch Work Phone: [facility] Work Phone: 12-09-2022 15:30-0400 Body mass index (BMI) [Ratio] 33.18 kg/m2 Rudy Branch Work Phone: [facility] Work Phone: 12-09-2022 15:30-0400 Body surface area Derived from formula 1.88 m2 Rudy Branch Work Phone: [facility] [address] Work Phone: 12-09-2022 15:30-0400 Body temperature 98.2 [degF] Rudy Branch Work Phone: [facility] [address] Work Phone: 12-09-2022 15:30-0400 Body weight 84.96 kg Rudy Branch Work Phone: [facility] [address] Work Phone: 12-09-2022 15:30-0400 Diastolic blood pressure 77 mm[Hg] Rudy Branch Work Phone: [facility]Tkusd[facility]Uv[facility] [address] Work Phone: 12-09-2022 15:30-0400 Heart rate 72 /min Rudy Branch Work Phone: AA[facility]Rbrtchuq[facility]Mg[facility]div [facility] [address] Work Phone: 12-09-2022 15:30-0400 Respiratory rate 19 /min Rudy Branch Work Phone: LR[facility]Not[facility] [address] Work Phone: 12-09-2022 15:30-0400 SaO2% (BldA) [Mass fraction] 98 % Rudy Branch Work Phone: VQ[facility]Ieqztnzp-Lnuypny [facility] [address] Work Phone: 12-09-2022 15:30-0400 Systolic blood pressure 114 mm[Hg] Rudy Branch Work Phone: KF[facility]Mroqnysp-Djbhcxp [facility] [address] Work Phone: 12-01-2022 15:54-0400 Diastolic Blood Pressure Non-Invasive 77 1 ENRIKE MARIE MD [facility] 12-01-2022 15:54-0400 Heart rate 79 /min ENRIKE MARIE MD [facility] 12-01-2022 15:54-0400 Reason For Taking VItal Signs ENRIKE MARIE MD [facility] 12-01-2022 15:54-0400 Respiratory rate 16 /min ENRIKE MARIE MD [facility] 12-01-2022 15:54-0400 Systolic Blood Pressure Non-Invasive 122 1 ENRIKE MARIE MD [facility] 12-01-2022 15:10-0400 Diastolic Blood Pressure Non-Invasive 65 1 ENRIKE MARIE MD [facility] 12-01-2022 15:10-0400 Heart rate 91 /min ENRIKE MARIE MD [facility] 12-01-2022 15:10-0400 Reason For Taking VItal Signs ENRIKE MARIE MD [facility] 12-01-2022 15:10-0400 Respiratory rate 16 /min ENRIKE MARIE MD [facility] 12-01-2022 15:10-0400 Systolic Blood Pressure Non-Invasive 134 1 ENRIKE MARIE MD [facility] 12-01-2022 13:58-0400 Body temperature 98.24 [degF] ENRIKE MARIE MD [facility] 12-01-2022 13:58-0400 Diastolic Blood Pressure Non-Invasive 82 1 ENRIKE MARIE MD [facility] 12-01-2022 13:58-0400 Heart rate 78 /min ENRIKE MARIE MD [facility] 12-01-2022 13:58-0400 Respiratory rate 16 /min ENRIKE MARIE MD [facility] 12-01-2022 13:58-0400 Systolic Blood Pressure Non-Invasive 125 1 ENRIKE MARIE MD [facility] 11-14-2022 14:30-0400 Body temperature 98.49 [degF] Adriane Jennifer OCEANOGRAPHY PROFESSOR.DIRECTOR OF MARKETING ANALYTICS Work Phone: [facility] 11-14-2022 14:30-0400 Body weight 83.92 kg Adriane Jennifer OCEANOGRAPHY PROFESSOR.DIRECTOR OF MARKETING ANALYTICS Work Phone: [facility] 11-14-2022 14:30-0400 Diastolic blood pressure 67 mm[Hg] Adriane Jennifer OCEANOGRAPHY PROFESSOR.DIRECTOR OF MARKETING ANALYTICS Work Phone: [facility] 11-14-2022 14:30-0400 Heart rate 70 /min Adriane Jennifer OCEANOGRAPHY PROFESSOR.DIRECTOR OF MARKETING ANALYTICS Work Phone: [facility] 11-14-2022 14:30-0400 Respiratory rate 18 /min Adriane Jennifer OCEANOGRAPHY PROFESSOR.DIRECTOR OF MARKETING ANALYTICS Work Phone: [facility] 11-14-2022 14:30-0400 SaO2% (BldA) [Mass fraction] 99 % Adriane Jennifer OCEANOGRAPHY PROFESSOR.DIRECTOR OF MARKETING ANALYTICS Work Phone: [facility] 11-14-2022 14:30-0400 Systolic blood pressure 100 mm[Hg] Adriane Jennifer OCEANOGRAPHY PROFESSOR.DIRECTOR OF MARKETING ANALYTICS Work Phone: [facility] 04-07-2022 14:11-0500 Body height 158.8 cm Kellen Mayorga MD Work Phone: [facility] 04-07-2022 14:11-0500 Body temperature 98.2 [degF] Kellen Mayorga MD Work Phone: [facility] 04-07-2022 14:11-0500 Body weight 83.28 kg Kellen Mayorga MD Work Phone: [facility] 04-07-2022 14:11-0500 Diastolic blood pressure 72 mm[Hg] Kellen Mayorga MD Work Phone: [facility] 04-07-2022 14:11-0500 Heart rate 84 /min Kellen Mayorga MD Work Phone: [facility] 04-07-2022 14:11-0500 Systolic blood pressure 121 mm[Hg] Kellen Mayorga MD Work Phone: [facility] 01-26-2022 12:03-0400 Body height 160 cm Hellen William DO Work Phone: [facility] 01-26-2022 12:03-0400 Body weight 84.82 kg Hellen William DO Work Phone: [facility] 01-26-2022 12:03-0400 Diastolic blood pressure 71 mm[Hg] Hellen William DO Work Phone: [facility] 01-26-2022 12:03-0400 Systolic blood pressure 117 mm[Hg] Hellen William DO Work Phone: [facility] 10-10-2021 11:13-0400 Body height 157.5 cm Riaz Christiano DO Work Phone: [facility] 10-10-2021 11:13-0400 Body temperature 98.49 [degF] Riaz Christiano DO Work Phone: [facility] 10-10-2021 11:13-0400 Body weight 85.28 kg Riaz Christiano DO Work Phone: [facility] 10-10-2021 11:13-0400 Diastolic blood pressure 75 mm[Hg] Riaz Christiano DO Work Phone: [facility] 10-10-2021 11:13-0400 Heart rate 65 /min Riaz Christiano DO Work Phone: [facility] 10-10-2021 11:13-0400 Respiratory rate 16 /min iRaz Alvarado DO Work Phone: [facility] 10-10-2021 11:13-0400 SaO2% (BldA) [Mass fraction] 100 % Riaz Alvarado DO Work Phone: [facility] 10-10-2021 11:13-0400 Systolic blood pressure 132 mm[Hg] Riaz Alvarado DO Work Phone: [facility] 10-02-2021 09:53-0400 Body height 157.5 cm Karen Doshi MD Work Phone: [facility] 10-02-2021 09:53-0400 Body temperature 97.39 [degF] Karen Doshi MD Work Phone: [facility] 10-02-2021 09:53-0400 Body weight 85.28 kg Karen Doshi MD Work Phone: [facility] 10-02-2021 09:53-0400 Diastolic blood pressure 66 mm[Hg] Karen Doshi MD [facility]: [facility] [facility] 10-02-2021 09:53-0400 Heart rate 69 /min Karen Doshi MD Work Phone: [facility] 10-02-2021 09:53-0400 Respiratory rate 22 /min Karen Doshi MD Work Phone: [facility] 10-02-2021 09:53-0400 SaO2% (BldA) [Mass fraction] 100 % Karen Doshi MD Work Phone: [facility] 10-02-2021 09:53-0400 Systolic blood pressure 108 mm[Hg] Karen Doshi MD Work Phone: [facility] 09-08-2021 11:19-0400 Body height 157.5 cm Hellen Thomas DO Work Phone: [facility] 09-08-2021 11:19-0400 Body weight 84.82 kg Hellen Tohmas DO Work Phone: [facility] 09-08-2021 11:19-0400 Diastolic blood pressure 75 mm[Hg] Hellen Thomas DO Work Phone: [facility] 09-08-2021 11:19-0400 Systolic blood pressure 123 mm[Hg] Hellen Thomas DO Work Phone: [facility] 07-25-2021 15:47-0400 Diastolic blood pressure 74 mm[Hg] ENRIKE MARIE MD [facility] 07-25-2021 15:47-0400 Heart rate 73 /min ENRIKE MARIE MD [facility] 07-25-2021 15:47-0400 Reason For Taking VItal Signs ENRIKE MARIE MD [facility] 07-25-2021 15:47-0400 Respiratory rate 18 /min ENRIKE MARIE MD [facility] 07-25-2021 15:47-0400 Systolic blood pressure 113 mm[Hg] ENRIKE MARIE MD [facility] 07-25-2021 14:05-0400 Diastolic blood pressure 81 mm[Hg] ENRIKE MARIE MD [facility] 07-25-2021 14:05-0400 Heart rate 76 /min ENRIKE MARIE MD [facility] 07-25-2021 14:05-0400 Reason For Taking VItal Signs ENRIKE MARIE MD [facility] 07-25-2021 14:05-0400 Respiratory rate 20 /min ENRIKE MARIE MD [facility] 07-25-2021 14:05-0400 Systolic blood pressure 125 mm[Hg] ENRIKE MARIE MD [facility] 07-25-2021 13:19-0400 Body temperature 98.42 [degF] ENRIKE MARIE MD [facility] 07-25-2021 13:19-0400 Diastolic blood pressure 89 mm[Hg] ENRIKE MARIE MD [facility] 07-25-2021 13:19-0400 Heart rate 77 /min ENRIKE MARIE MD [facility] 07-25-2021 13:19-0400 Respiratory rate 22 /min ENRIKE MARIE MD [facility] 07-25-2021 13:19-0400 Systolic blood pressure 144 mm[Hg] ENRIKE MARIE MD [facility] 05-04-2021 11:14-0500 Body temperature 99.14 [degF] WILMAR PRADO DO [facility] 05-04-2021 11:14-0500 Diastolic blood pressure 93 mm[Hg] WILMAR PRADO DO [facility] 05-04-2021 11:14-0500 Heart rate 97 /min WILMAR PRADO DO [facility] 05-04-2021 11:14-0500 Respiratory rate 18 /min WILMAR PRADO DO [facility] 05-04-2021 11:14-0500 Systolic blood pressure 142 mm[Hg] WILMAR PRADO DO [facility] 01-02-2021 14:45-0400 Body height 157.48 cm Rudy Herrera [employer] Work Phone: [id number] [facility] Work Phone: 01-02-2021 14:45-0400 Body mass index (BMI) [Ratio] 34.39 kg/m2 Rudy Herrera [employer] Work Phone: [id number] [facility] Work Phone: 01-02-2021 14:45-0400 Body surface area Derived from formula 1.86 m2 Rudy Herrera [employer] Work Phone: [id number] [facility] Work Phone: 01-02-2021 14:45-0400 Body weight 85.28 kg Rudy Herrera [employer] Work Phone: [id number] [facility] Work Phone: 01-02-2021 14:45-0400 Diastolic blood pressure 72 mm[Hg] Rudy Herrera [employer] Work Phone: [id number] [facility] Work Phone: 01-02-2021 14:45-0400 Systolic blood pressure 115 mm[Hg] Rudy Branch Work Phone: [id number] [facility] [place] Work Phone: 01-02-2021 14:45-0400 7 1 Rudy Branch Work Phone: [id number] [facility] [place] Work Phone: Encounters Encounter Date Encounter Type Care Provider Facility Start: 04-21-2023 End: 04-21-2023 Office outpatient visit 25 minutes Danay Ramires OCEANOGRAPHY PROFESSOR-DIRECTOR OF MARKETING ANALYTICS Work Phone: [facility] Procedures Date Procedure Procedure Detail Performing Clinician Start: 04-15-2023 POCT UA AUTOMATED MANUALLY RESULTED THEA HERNANDEZ Start: 04-15-2023 POST-VOID RESIDUAL THEA HERNANDEZ Start: 04-15-2023 End: 04-15-2023 Urnls dip stick/tablet rgnt auto w/o microscopy Stefan Yi OCEANOGRAPHY PROFESSOR-DIRECTOR OF MARKETING ANALYTICS Work Phone: Start: 04-08-2023 US RENAL COMPLETE CANELO YOVANI Start: 04-06-2023 LAVENDER TOP RUDY BRANCH Start: 04-06-2023 CANCER ANTIGEN 125 RUDY BRANCH Start: 02-25-2023 End: 02-25-2023 Mri spinal canal cervical w/o contrast berenicel Mark Thompson MD Work Phone: Start: 02-01-2023 Us transvaginal Phyllis Lambrinides OCEANOGRAPHY PROFESSOR.DIRECTOR OF MARKETING ANALYTICS Work Phone: Start: 12-31-2022 Urnls dip stick/tablet rgnt auto w/o microscopy Tamika Mendoza OCEANOGRAPHY PROFESSOR.DIRECTOR OF MARKETING ANALYTICS Work Phone: Start: 11-14-2022 Urnls dip stick/tablet rgnt auto w/o microscopy Adriane Rodriguez OCEANOGRAPHY PROFESSOR.DIRECTOR OF MARKETING ANALYTICS Work Phone: Start: 07-30-2022 Us retroperitoneal real time w/image complete Danna Davis OCEANOGRAPHY PROFESSOR.DIRECTOR OF MARKETING ANALYTICS Work Phone: Start: 05-04-2022 Follow-up visit Follow-up WILMAR DAVIS Start: 03-26-2022 Ct abdomen & pelvis w/contrast material Brandee Ramos OCEANOGRAPHY PROFESSOR.DIRECTOR OF MARKETING ANALYTICS Work Phone: Start: 03-26-2022 Ct thorax w/contrast material Brandee Ramos OCEANOGRAPHY PROFESSOR.DIRECTOR OF MARKETING ANALYTICS Work Phone: Start: 10-02-2021 ALLERGEN SKIN TEST-INHALENT 40 Karen Doshi MD Work Phone: Start: 10-02-2021 Allg test perq & ic drug/biol immed react w/i&r Karen Doshi MD Work Phone: Start: 10-02-2021 Nitric oxide gas determination Karen Doshi MD Work Phone: Start: 10-02-2021 Spmtry w/vc expiratory mary w/wo mxml vol vntj Karen Doshi MD Work Phone: Start: 09-08-2021 PT ED OBSTETRICS & GYNECOLOGY Hellen Thomas DO Work Phone: Start: 08-28-2020 Adult depression screening assessment Hellen Thomas DO [employer] Phone: Start: 08-13-2020 History of cholecystectomy Status post cholecystectomy Hellen Thomas DO Work Phone: Start: 02-15-2019 OPERATIVE REPORT 3m Scanning Start: 02-15-2019 Colonoscopy 3m Scanning Start: 02-15-2019 Urine test visual color cmprsn meths Magdi Davis Work Phone: Start: 02-08-2019 Basic metabolic panel calcium total Sushila R Kyle Work Phone: Start: 02-08-2019 Blood count hemoglobin Sushila R Brandon Work Phone: Start: 01-18-2017 End: 01-18-2017 Documentation of current medications Mayela Tyler LPN Start: 12-18-2016 End: 12-18-2016 Documentation of current medications Maci Matta MD Work Phone: Start: 11-26-2016 End: 11-26-2016 Documentation of current medications Maci Matta MD Work Phone: Start: 11-19-2016 End: 12-03-2016 *UA - Urinalysis w/o Micro Adarsh BLANTON Work Phone: Start: 11-19-2016 End: 11-19-2016 Ketorolac Tromethamine 30 mg/ml Soln Adarsh BLANTON Work Phone: Start: 11-19-2016 End: 11-19-2016 Promethazine (Phenergan) <=50 mg Adarsh BLANTON Work Phone: Start: 11-19-2016 End: 11-19-2016 Therapeutic prophylactic/dx injection subq/im Adarsh BLANTON Work Phone: Start: 11-19-2016 End: 11-19-2016 Urine test visual color cmprsn meths Adarsh BLANTON Work Phone: Start: 11-19-2016 End: 11-19-2016 Urnls dip stick/tablet rgnt non-auto w/o micrscp Adarsh BLANTON Work Phone: Start: 11-19-2016 End: 11-19-2016 Urinalysis Canelo Rogers LPN Work Phone: Start: 11-19-2016 End: 11-19-2016 Documentation of current medications Canelo Rogers MEASUREMENT AND SENSING TECHNICIAN Work Phone: Start: 11-19-2016 End: 11-19-2016 Urinalysis Canelo Rogers MEASUREMENT AND SENSING TECHNICIAN Work Phone: Start: 11-19-2016 End: 12-03-2016 *UA - Urinalysis w/o Micro Adarsh BLANTON Work Phone: Start: 11-19-2016 End: 11-19-2016 Ketorolac tromethamine inj Adarsh BLANTON Work Phone: Start: 11-19-2016 End: 11-19-2016 Therapeutic prophylactic/dx injection subq/im Adarsh BLANTON Work Phone: Start: 11-19-2016 End: 11-19-2016 Urnls dip stick/tablet rgnt non-auto w/o micrscp Adarsh BLANTON Work Phone: Start: 11-03-2016 End: 11-11-2016 Corticotropin [Mass/volume] in Plasma Colleen Dale HOME [employer]P Work Phone: Start: 11-03-2016 End: 11-09-2016 Cortisol [Mass/volume] in Serum or Plasma Colleen Dale [employer] Work Phone: Start: 11-03-2016 End: 11-09-2016 Thyrotropin [Units/volume] in Serum or Plasma Colleen Dale [employer] Work Phone: Start: 11-03-2016 End: 11-09-2016 Thyroxine (T4) free [Mass/volume] in Serum or Plasma Colleen Dale [employer] Work Phone: Start: 11-03-2016 End: 11-09-2016 Triiodothyronine (T3) Free [Mass/volume] in Serum or Plasma Colleen Dale [employer] Work Phone: Start: 11-03-2016 End: 11-11-2016 Corticotropin [Mass/volume] in Plasma Colleen Dale [employer] Work Phone: Start: 11-03-2016 End: 11-09-2016 Cortisol [Mass/volume] in Serum or Plasma Colleen Dale [employer] Work Phone: Start: 11-03-2016 End: 11-09-2016 Thyrotropin [Units/volume] in Serum or Plasma Colleen Dale [employer] Work Phone: Start: 11-03-2016 End: 11-09-2016 Thyroxine (T4) free [Mass/volume] in Serum or Plasma Colleen Dale [employer] Work Phone: Start: 11-03-2016 End: 11-09-2016 Triiodothyronine (T3) Free [Mass/volume] in Serum or Plasma Colleen Dale [employer] Work Phone: Start: 10-22-2016 End: 10-22-2016 Documentation of current medications Colleen Dale NP Work Phone: Start: 10-22-2016 Screening for malignant neoplasm of cervix Screening for cervical cancer Colleen Dale NP Work Phone: Start: 10-02-2016 End: 10-02-2016 Documentation of current medications Canelo Rogers HUMBERTO Work Phone: Start: 08-05-2016 End: 08-05-2016 Thyrotropin [Units/volume] in Serum or Plasma Colleen Dale [employer] Work Phone: Start: 08-05-2016 End: 08-05-2016 Thyroxine (T4) free [Mass/volume] in Serum or Plasma Colleen Dale [employer] Work Phone: Start: 08-05-2016 End: 08-05-2016 Triiodothyronine (T3) Free [Mass/volume] in Serum or Plasma Colleen Dale [employer]P Work Phone: Start: 08-05-2016 End: 08-05-2016 Documentation of current medications Colleen Dale NP Work Phone: Start: 08-05-2016 End: 08-05-2016 Thyrotropin [Units/volume] in Serum or Plasma Colleen Dale [employer] Work Phone: Start: 08-05-2016 End: 08-05-2016 Thyroxine (T4) free [Mass/volume] in Serum or Plasma Colleen Dale [employer] Work Phone: Start: 08-05-2016 End: 08-05-2016 Triiodothyronine (T3) Free [Mass/volume] in Serum or Plasma Colleen Dale [employer] Work Phone: Start: 10-23-2015 End: 10-23-2015 *CBC with Differential Rudy Mc Work Phone: Start: 10-23-2015 End: 10-23-2015 *CMP Complete Metabolic Panel Rudy Branch DO Work Phone: Start: 10-23-2015 End: 10-23-2015 C reactive protein [Mass/volume] in Serum or Plasma by High sensitivity method Rudy Herrera Jose Carlos DO Work Phone: Start: 10-23-2015 End: 10-23-2015 Erythrocyte sedimentation rate Rudy Herrera Jose Carlos DO Work Phone: Start: 10-23-2015 End: 10-23-2015 Gamma glutamyl transferase [Enzymatic activity/volume] in Serum or Plasma Rudy Herrera Jose Carlos DO Work Phone: Start: 10-23-2015 End: 10-23-2015 Lipase [Enzymatic activity/volume] in Serum or Plasma Rudy Herrera Jose Carlos DO Work Phone: Start: 10-23-2015 End: 10-23-2015 *CMP Complete Metabolic Panel Rudy Herrera Jose Carlos DO Work Phone: Start: 10-23-2015 End: 10-23-2015 C reactive protein [Mass/volume] in Serum or Plasma by High sensitivity method Rudy Herrera Jose Carlos DO Work Phone: Start: 10-23-2015 End: 10-23-2015 CBC W Auto Differential panel - Blood Rudy Howardman DO Work Phone: Start: 10-23-2015 End: 10-23-2015 Erythrocyte sedimentation rate Rudy Herrera Jose Carlos DO Work Phone: Start: 10-23-2015 End: 10-23-2015 Gamma glutamyl transferase [Enzymatic activity/volume] in Serum or Plasma Rudy Herrera Jose Carlos DO Work Phone: Start: 10-23-2015 End: 10-23-2015 Lipase [Enzymatic activity/volume] in Serum or Plasma Rudy Herrera Jose Carlos DO Work Phone: Start: 10-09-2015 End: 10-08-2016 Occupational therapy Rudy Herrera Jose Carlos DO Work Phone: Start: 10-09-2015 End: 10-09-2015 Documentation of current medications Colleen Dale NP Work Phone: Start: 10-09-2015 End: 10-08-2016 Occupational therapy Rudy Herrera Jose Carlos DO Work Phone: Start: 07-17-2015 End: 07-23-2015 Mycobacterium tuberculosis tuberculin stimulated gamma interferon [Presence] in Blood Moniquelinette Nicole MD Start: 07-17-2015 End: 07-23-2015 Mycobacterium tuberculosis tuberculin stimulated gamma interferon [Presence] in Blood Moniquelinette Nicole MD Start: 06-26-2015 End: 06-27-2015 *HIV antibody Rudy Branch DO [employer] Phone: Start: 06-26-2015 End: 06-27-2015 *HIV antibody Rudy Branch DO [employer] Phone: Start: 04-06-2015 End: 04-06-2015 Urinalysis Colleen Dale NP Work Phone: Start: 01-09-2015 End: 01-10-2015 C reactive protein [Mass/volume] in Serum or Plasma by High sensitivity method Rudy Branch DO [employer] Phone: Start: 01-09-2015 End: 01-10-2015 Erythrocyte sedimentation rate Rudy Branch DO Work Phone: Start: 01-09-2015 End: 01-10-2015 Leukocytes [Presence] in Stool by Light microscopy Rudy Branch DO [employer] Phone: Start: 01-09-2015 End: 01-10-2015 C reactive protein [Mass/volume] in Serum or Plasma by High sensitivity method Rudy Branch DO [employer] Phone: Start: 01-09-2015 End: 01-10-2015 Erythrocyte sedimentation rate Rudy Branch DO [employer] Phone: Start: 01-09-2015 End: 01-10-2015 Leukocytes [Presence] in Stool by Light microscopy Rudy Branch DO [employer] Phone: Start: 12-07-2014 End: 12-07-2014 Urinalysis Colleen Dale NP Work Phone: Start: 10-02-2014 End: 01-10-2015 X-ray exam of abdomen Rudy Branch DO [employer] Phone: Start: 10-02-2014 End: 01-10-2015 X-ray exam of abdomen Rudy Branch DO Work Phone: Start: 04-25-2014 End: 04-25-2015 Gastroenterology Referral Mabel Bernard Start: 04-25-2014 End: 05-29-2014 OT-Functional Capacity Evaluation Mabel Pearce MD Start: 04-25-2014 End: 04-25-2015 Gastroenterology Referral Mabel Bernard Start: 04-25-2014 End: 05-29-2014 OT-Functional Capacity Evaluation Mabel Pearce MD Start: 01-08-2014 End: 01-08-2014 CBC W Auto Differential panel - Blood Mabel Pearce MD Start: 01-08-2014 End: 01-08-2014 Urine test visual color cmprsn meths Mabel Pearce MD Start: 01-08-2014 End: 01-08-2014 Urnls dip stick/tablet rgnt non-auto w/o micrscp Mabel Pearce MD Start: 01-08-2014 End: 01-08-2014 CBC W Auto Differential panel - Blood Mabel Pearce MD Start: 01-08-2014 End: 01-08-2014 Urnls dip stick/tablet rgnt non-auto w/o micrscp Mabel Pearce MD Start: 06-22-2013 End: 06-26-2013 Bacteria identified in Throat by Culture Mabel Pearce MD Start: 06-22-2013 End: 06-26-2013 Bacteria identified in Throat by Culture Mabel Pearce MD Start: 08-15-2008 H/O: section Previous delivery, antepartum condition or complication Hellen Thomas DO Work Phone: section Rudy zavala Work Phone: section WILMAR NOE ABHIJEET DO Colonoscopy WILMAR PRADO DO Endometrial ablation Rudy Branch Work Phone: H/O: hysterectomy S/P laparoscop ic hysterectomy Kellen Mayorga MD Work Phone: H/O: hysterectomy S/P laparoscop ic hysterectomy Phyllis Lambrinides OCEANOGRAPHY PROFESSOR.DIRECTOR OF MARKETING ANALYTICS Work Phone: H/O: hysterectomy S/P laparoscop ic hysterectomy Us 1 Work Phone: H/O: surgery S/P ovarian cystectomy Marita Mayorga MD Work Phone: H/O: surgery S/P ovarian cystectomy Phyllis Lambrinides OCEANOGRAPHY PROFESSOR.DIRECTOR OF MARKETING ANALYTICS Work Phone: H/O: surgery S/P ovarian cystectomy Us 1 Work Phone: Hernia of abdominal cavity (disorder) WILMAR PRADO DO Hernia repair Rudy do Work Phone: Hysterectomy ENRIKE MONDRAGON MD Loop electrosurgical excision procedure WILMAR PRADO DO Screening colonoscopy Rudy Branch Work Phone: Sigmoidoscopy (Fiber optic, Therapeutic ) Rudy Branch Work Phone: Plan of Treatment Date Care Activity Detail Author Start: 08-21-2033 Zoster Vaccines (1 of 2) Zoster Vaccines (1 of 2) [facility] Start: 03-26-2026 HPV TESTING HPV TESTING [facility] Start: 03-26-2026 PAP TESTING PAP TESTING [facility] Start: 02-26-2024 BP Controlled (<130/80) BP Controlled (<130/80) [facility] Start: 01-03-2024 Diabetes mellitus screening Diabetes Screening [facility] Start: 01-03-2024 Hemoglobin A1c measurement Diabetes: Hemoglobin A1C [facility] Start: 10-05-2024 BP Controlled (<130/80) BP Controlled (<130/80) [facility] Start: 11-15-2023 BP CONTROLLED (<130/80) BP CONTROLLED (<130/80) [facility] Start: 10-08-2023 End: 10-08-2023 Patient encounter procedure 10/08/2023 11:20 AM EDT Office Visit [facility] [address] [facility] [address] [place] [address] Canelo Reilly, OCEANOGRAPHY PROFESSOR-DIRECTOR OF MARKETING ANALYTICS [address] [place] [address] [facility] Start: 06-21-2023 End: 06-21-2023 Telemedicine consultation with patient 06/21/2023 10:40 AM EDT Telemedicine [address] [place] [address] Stefan Yi, OCEANOGRAPHY PROFESSOR-DIRECTOR OF MARKETING ANALYTICS [address] [facility] [address] [place] [address] [facility] Start: 05-19-2023 End: 05-19-2023 Patient encounter procedure 05/19/2023 3:00 PM EST Procedure Visit [facility] [address] [facility] [address] [place] [phone] [place] [address] [place] [address] [facility] 1 Start: 05-13-2023 End: 05-13-2023 Telemedicine consultation with patient 05/13/2023 9:40 AM EST Telemedicine [facility] [address] [place] [address] Canelo Reilly, OCEANOGRAPHY PROFESSOR-DIRECTOR OF MARKETING ANALYTICS [address] [place] [address] [facility] Start: 05-03-2023 End: 05-03-2023 ambulatory 05/03/2023 1:00 PM EST Treatment [facility] [address] [place] [phone] Suyapa Cabrera, PT [address] [facility] [place] [address] [facility] Start: 04-21-2023 End: 04-21-2024 25-hydroxyvitamin D3 [Mass/volume] in Serum or Plasma Vitamin D 25-Hydroxy,Total (for eval of Vitamin D levels) Lab Routine Loose stools Expected: 04/21/2023 (Approximate), Expires: 04/21/2024 [facility] Work Phone: Immunizations Immunization Date Immunization Notes Care Provider Fa remy 07-03-2020 Pfizer-BioNTech COVI D-19 Vacc 30 MCG/0.3ML Intramuscular Suspension Rudy Branch Work Phone: [facility] Work Phone: Payers Date Payer Category Payer Unknown [id number] 2019 Medicaid [employer] [id number] 2019-Present [phone] [address] [place] [address] Medicaid [id number] 2019 Medicaid [id number] 2019 Unknown [id number] 2018 Unknown [employer] [facility] MEDICAID xxxxxxxxxxx 2018-Present [phone] CLAIMS DEPARTMENT [address] [place] [address] xxxxxxxxxxx [id number] 2017 Unknown 2012 Medicaid [id number] 1983 Unknown [id number] [id number] 1983 Unknown [id number] 2.16.840.1.112908.3.579.2.668 1983 Unknown [id number] 2.16.840.1.666969.3.579.2.1069 1983 Unknown [id number] 2.16.840.1.464313.3.579.2.356 1983 Unknown [id number] 2.16.840.1.312102.3.579.2.356 1983 Unknown [id number] 2.16.840.1.208800.3.579.2.356 1983 Unknown [id number] 2.16.840.1.998167.3.579.2.356 1983 Unknown [id number] 2.16.840.1.156594.3.579.2. 1983 Unknown [id number] 2.16.840.1.464584.3.579.2. 1983 Unknown [id number] 2.16.840.1.219182.3.579.2. 1983 Unknown [id number] 2.16.840.1.293008.3.579.2. 1983 Unknown [id number] 2.16.840.1.409600.3.579.2. 1983 Unknown [id number] 2.16.840.1.348453.3.579.2. 1983 Unknown [id number] 2.16.840.1.479942.3.579.2. 1983 Unknown [id number] 2.16.840.1.833407.3.579.2. 1983 Unknown [id number] 2.16.840.1.517454.3.579.2.1243 1983 Unknown [id number] 2.16.840.1.938313.3.579.2.1242 1983 Unknown [id number] 2.16.840.1.990739.3.579.2.1244 1983 Unknown [id number] Social History Date Type Detail Facility Start: 12-15-2018 End: 02-15-2019 [facility] Start: 02-15-2019 End: 02-25-2023 [facility] Start: 1985 Sex Assigned At Not on file [facility] Start: 04-07-2022 End: 07-30-2022 Never a smoker Never a smoker [facility] Sex Assigned At [facility] Start: 04-16-2021 End: 10-10-2021 Alcohol intake Current non-drinker of alcohol (finding) [facility] Start: 03-07-2009 History SDOH Alcohol Comment Seldom [facility] Start: 06-24-2021 End: 04-14-2023 Exposure to SARS-CoV-2 (event) Not sure [facility] Start: 04-07-2022 End: 07-30-2022 Tobacco use panel [facility] Adult Depression Screening Assessment 1 [facility] Start: 1985 Sex Assigned At Female S [facility] Start: 05-03-2022 Gender identity Identifies as female gender (finding) [facility] Start: 04-06-2023 Tobacco smoking stat us MOIS Tobacco smoking consumption unknown [facility] Start: 04-06-2023 End: 04-15-2023 Alcohol intake Defer [facility] Work Phone: Functional Status Date Assessment Result Facility 03-14-2023 Functional Status Independent [facility] isaak [facility] 12-11-2022 Functional Status Minimum assistance [facility] 12-11-2022 Functional Status ID band on, Allergy Band on, Call device within reach, Bed in low position, Wheels locked, Upper/Half-Length side-rails up, Visitor at bedside [facility] 12-01-2022 Functional Status ID band on, Allergy Band on, Call device within reach, Bed in low position, Wheels locked, Upper/Half-Length side-rails up, Bedside Cart Locked, Visitor at bedside [facility] 12-01-2022 Functional Status [facility] 07-25-2021 Functional Status [facility] 07-25-2021 Functional Status [facility] Mental Status Date Assessment Result Facility 03-14-2023 Mental Status Orientation Oriented x 4 [facility] 03-14-2023 Mental Status [facility] 12-11-2022 Mental Status Orientation Oriented x 4 [facility] 12-11-2022 Mental Status [facility] 12-01-2022 Mental Status Orientation Oriented x 4 [facility] 12-01-2022 Mental Status [facility] 07-25-2021 Mental Status [facility] 07-25-2021 Mental Status [facility] Clinical Notes 09-11-2013 to 04-21-2023 Danay Ramires, [facility] 04/21/2023 10:30 AM Suhail Yi, OCEANOGRAPHY [facility] - 04/15/2023 10:00 AM ESTPatient InstructionsCanelo Reilly, OCEANOGRAPHY [facility] - 04/14/2023 11:40 AM ESTPatient Instructions Note Date & Type Note Facility 04-21-2023 History of Present illness Narrative Subjective Patient ID: Kaya Fickle is a 37 y.o. female who presents for No chief complaint on file.. [facility] Dr. Delgado 09/20/18: 33-year-old female presents for urgent visit with multiple GI symptoms. She is been evaluated in 2 different emergency rooms for acute onset of epigastric pain associated with regurgitation. She denies any alarm symptoms of dysphagia odynophagia or early satiety. She reports she is not able to tolerate much by mouth intake due to epigastric pain. She has been on omeprazole 20 mg once a day and is previously on ranitidine but stopped taking it since she felt it was not helping her. She reports she was unable to tolerate higher doses of a proton pump inhibitor due to diarrhea. She has a remote diagnosis of Crohn's disease however there was no evidence of inflammatory bowel disease on an EGD or colonoscopy including random biopsies. She did have an external hemorrhoid that was identified. IBD serology was negative. She reports she has blood in her stools every day and has been having diarrhea. An MR enterography was ordered but she has not completed it. I do not feel she has any evidence of inflammatory bowel disease at this time. I suspect her urgent symptoms for the past week of epigastric pain and regurgitation may be related to esophagitis. I would aggressively treat with omeprazole 40 mg twice a day. I have sent a prescription to her pharmacy but in the meantime she can take her current 20 mg tablet twice a day to see if she can tolerate regarding side effects. She will follow-up with Ofelia Rudolph CNP in one month and if her symptoms do not improve we can consider an endoscopy. ->Colonoscopy [address] Delgado: Internal hemorrhoid. A single diminutive benign-appearing polyp found in the rectum and removed, polyp pathology unremarkable. Random biopsies unremarkable. ->[facility] Dr. Young 2019:Colonsocopy-> the entire colon is normal. Random biopsies with no significant pathology, negative for IBD. External hemorrhoid excision path consistent with hemorrhoid tissue. ->Office visit with Dr. Young 2019: Chronic diarrhea secondary to overflow diarrhea in the setting of severe constipation.No indication for IBD. Visit with oncology 04/14/23:->history of chronic pelvic pain s/p LSO 2014 for endometriosis and s/p total laparoscopic hysterectomy, R ovarian cystectomy, R salpingectomy and peritoneum bowel lesion biopsy, and PEDRO on 02/10/22 for low grade serous epilethial proliferation, not diagnostic for carcinoma. Persistent pelvic pain. Patient wanting to establish with digestive health GI once again to discuss chronic GI complaints. Thorough investigation in the EMR with findings of multiple colonoscopies and multiple visits with maintenance supervisor mechanical at [facility]. Patient is a poor informant, had to obtain most of her medical record from investigating the EMR. She presents with complaints of gastric pain with feeling like her food open (solids only) gets stuck in that area. Her symptoms are intermittent/wax and wane. She is taking omeprazole 20 mg twice daily with suboptimal response. However, takes Carafate 1 g in liquid form as needed and this helps with her discomfort and also helps form her stool. She has 4-5 mushy stools per day with mucus. Her stools are described as yellow and brown in color. She does experience occasional red blood with wiping with rectal pain. She denies melena or hematemesis. She does occasionally experience nocturnal bowel movements. No primary relative with colon cancer or IBD. Patient reports multiple abdominal surgeries. Endorses that she has history of ovarian cancer and follows closely with oncology. The patient endorses that her symptoms did resolve for about 6 months after an abdominal surgery she underwent in 2021, but symptoms have returned. Endorses being diagnosed with Crohn's disease at 1 years of age. As a teenager as her symptoms improved, but after her first child her GI symptoms returned. She has never been on any biologic treatment. Endorses remote history of mesalamine enemas and burst of steroids can only tolerate dexamethasone . She reports that her PCP prescribes her burst of steroids to help with her overall complaints. She endorses history of lupus and mixed connective tissue disorder, but does not regularly see a open shank coverer. She endorses a significant amount of stress in her life with her father recently being diagnosed with lung cancer. Weight and appetite are stable. No excessive alcohol or NSAIDs. No smoking. Review of Systems All other systems reviewed and are negative. Objective Physical Exam Constitutional: General: She is awake. She is not in acute distress. Appearance: She is not ill-appearing, toxic-appearing or diaphoretic. HENT: Head: Normocephalic and atraumatic. Eyes: General: No scleral icterus. Pupils: Pupils are equal, round, and reactive to light. Pulmonary: Effort: Pulmonary effort is normal. No respiratory distress. Musculoskeletal: General: Normal range of motion. Cervical back: Normal range of motion. Skin: Coloration: Skin is not jaundiced or pale. Neurological: General: No focal deficit present. Mental Status: She is alert and oriented to person, place, and time. Psychiatric: Mood and Affect: Mood normal. Behavior: Behavior normal. Behavior is cooperative. Assessment/Plan Diagnoses and all orders for this visit: 37-year-old female with a complex medical history and chronic GI complaints. She has been seen by multiple maintenance supervisor mechanical at different healthcare systems with no findings of IBD. Patient with chronic GI complaints that wax and wane. No red flag symptoms noted, but her symptoms do warrant further investigation and a plan of care is pending results. Clinical history suggestive of IBS versus functional GI disorder. Loose stools - Calprotectin Stool; Future - C-reactive protein; Future - Sedimentation Rate; Future - CBC; Future - Comprehensive metabolic panel; Future - Vitamin B12; Future - Vitamin D 25-Hydroxy,Total (for eval of Vitamin D levels); Future - Iron and TIBC; Future - Folate; Future Pelvic pain in female - Referral to Gastroenterology Gastroesophageal reflux disease, unspecified whether esophagitis present Acid suppression medication changed to omeprazole 40 mg twice daily - Advised on the correct dose and timing of the PPI, Preferably 1/2 hour before breakfast and dinner. - Pathophysiology and etiology of reflux discussed at length, with help of images. - Anti-reflux lifestyle modification discussed at length --Avoid spicy acidic based foods --Limit coffee, tea --Limit the amount of food during meal time, avoid gorging --Avoid bedtime snacks and eat meals 3 to 4 hrs before lying down --Elevate the head of the bed with blocks --Weight reduction advised and discussed at length Dysphagia, unspecified type Could be esophageal spasm secondary to GERD. Recommend increasing PPI to empiric dosing. Consider upper endoscopy if symptoms do not resolve. Epigastric pain WESLEY Beltre 04/21/23 12:41 PM documented in this encounter [facility] Work Phone: 04-15-2023 History of Present illness Narrative 04/15/23 [id number] Difficulty urinating, gross hematuria Subjective HPI Kaya Arce is a 37 y.o. female who presents for difficulty urinating, gross hematuria intermittently past few weeks; left flank and lower abdomen pain; feels vagina/urethra bruised, frequent urination but difficulty urinating per patient; hx chronic pelvic pain; UA neg today, PVR 0 cc; 04/06/22 urine culture neg Every 3-4 mos nephrolithiasis since age 20 per patient; only once lithotripsy 10+ yrs ago, mostly left sided stones; left oophorectomy and salpingectomy; still w R ovary; per patient, currently under surveillance for findings of low grade serous epithelial proliferation on 01/[address] Matta, INSTITUTION DIRECTOR in [place]; I saw this patient in past, prior to 2018 when I worked at Dr. Patel office in [place]; her primary care is Dr. Rudy Branch; Not constipated, now rectal bleeding as well; began yesterday per patient; RAQUEL: nonobstructing left side 5 mm renal stone; Unable to take tamsulosin as lowers bp too much w POTS DTF 8-10 x, NTF 3 x, seldom UUI or TENISHA Saw PFPT near her home but they wanted her to do kegels, saw Nohemy Madrigal years ago; PMH: endometriosis, POTS, heart murmur, asthma, arthritis, ovarian cancer PSH: 2021 hysterectomy and lesion on bowel abnormal; 2019 cholecystectomy, 2018 endo excision, 2014 L oophorectomy and salpingectomy; 2003 section, 189 double hernia repair; FH: father stage V lung cancer NSCLC SH: non smoker Objective BP 124/87 Pulse 89 Ht 1.6 m (5' 3 ) Wt 83.9 kg (185 lb) BMI 32.77 kg/m Physical Exam Genitourinary: Comments: Neg Qtip tenderness vulva, no vulvar lesions Neg CLERK ENTRY LEVEL lying down Levator ani tenderness, mild tightness bilaterally, greatest pain at 6 o'clock Min cystocele, no rectocele, no vaginal bleeding No rectal exam done General: Appears comfortable and in no apparent distress, well nourished Head: Normocephalic, atraumatic Neck: trachea midline Respiratory: respirations unlabored, no wheezes, and no use of accessory muscles Cardiovascular: at rest no dyspnea, well perfused Skin: no visible rashes or lesions Neurologic: grossly intact, oriented to person, place, and time Psychiatric: mood and affect appropriate Musculoskeletal: in chair for appt. no difficulty w upper body movement Assessment/Plan Problem List Items Addressed This Visit Genitourinary and Reproductive Gross hematuria Relevant Orders CT urography w 3D volume rendered imaging Creatinine, Serum Non-gynecologic cytology Other Visit Diagnoses Urinary frequency - Primary Relevant Orders POCT UA Automated manually resulted (Completed) Post-Void Residual (Completed) Left flank pain Relevant Orders CT urography w 3D volume rendered imaging Creatinine, Serum Orders Placed This Encounter Procedures Post-Void Residual CT urography w 3D volume rendered imaging Standing Status: Future Standing Expiration Date: 04/15/2024 Order Specific Question: Is the patient ? Answer: No Order Specific Question: PHE Acuity Answer: urgent Order Specific Question: Reason for exam: Answer: gross hematuria, left flank pain Order Specific Question: Radiologist to Determine Optimal Study Answer: Yes Order Specific Question: Release result to [email or web address] Answer: Immediate Order Specific Question: Is this exam part of a Research Study? If Yes, link this order to the research study Answer: No Creatinine, Serum Standing Status: Future Standing Expiration Date: 04/15/2024 Order Specific Question: Release result to [email or web address] Answer: Immediate [1] POCT UA Automated manually resulted Order Specific Question: Release result to [email or web address] Answer: Immediate [1] Hematuria: CT urogram call to schedule [phone] Creatinine one week prior Urine cytology Cystoscopy Dr. Hull Urine culture 2 weeks prior to cystoscopy Pelvic pain, Refer to PFPT to help relax pelvic floor, has seen Nohemy Madrigal in past Uribel once daily PRN, may consider medicine for OAB at some point But now difficulty w urinating, likely pelvic floor related, voiding dysfunction After she left, called and left , if desires pelvic pain suppositories could fax to [facility] Nurse line [phone] Follow up w me virtually 1 mos after cysto Stefan Yi, OCEANOGRAPHY PROFESSOR-DIRECTOR OF MARKETING ANALYTICS Lab Results Component Value Date GLUCOSE 127 (H) 08/17/2018 CALCIUM 9.5 08/17/2018 NA 141 08/17/2018 K 3.8 08/17/2018 CO2 25 08/17/2018 CL 106 08/17/2018 BUN 9 12/11/2020 CREATININE 0.71 12/11/2020 documented in this encounter [facility] Work Phone: 04-15-2023 Instructions WESLEY Obando - 04/15/2023 10:00 AM EST Hematuria: CT urogram call to schedule [phone] Creatinine one week prior Urine cytology Cystoscopy Urine culture 2 weeks prior to cystoscopy Pelvic pain, Refer to PFPT to help relax pelvic floor, has seen Nohemy Madrigal in past Uribel once daily PRN, may consider medicine for OAB at some point But now difficulty w urinating, likely pelvic floor related, voiding dysfunction Nurse line [phone] Follow up w me virtually 1 mos after cysto documented in this encounter [facility] Work Phone: 04-14-2023 History of Present illness Narrative Patient ID: Kaya Arce is a 37 y.o. female. Primary Care Provider: Rudy Branch DO Subjective Treatment History: Dr. Hellen Thomas [facility] Dr. Maci Matta 37 yo who carries a history of endometriosis and chronic pelvic pain followed by JULISSA presents for second opinion on the management of findings of low grade serous epithelial proliferation on 01/2022 laparoscopy. 07/2014 LSO for pain, adnexal mass, elevated CA125 elevated ~ 150s assumed to be secondary to endometriosis. Final pathology: Sclerotic ovary with benign serous inclusions with psammoma bodies, negative for neoplasm. L fallopian tube intraluminal psammoma bodies. Continued pelvic pain. 02/10/2022 surgery: Total laparoscopic hysterectomy, R ovarian cystectomy, R salpingectomy and peritoneum bowel lesion biopsy. Extensive lysis of adhesions needed. Final pathology: Pelvic peritoneum biopsy demonstrated low grade serous epithelial proliferation. Ovarian cystectomy and salpingectomy: Follicular cyst, no significant pathology. CT CAP 03/26/2022 demonstrated evidence for metastatic disease. Repeat CA125 was 22. [facility] tumor board review and consultation with Dr. Colin: Serous phenotype confirmed. Dx: Low grade serous epithelial proliferation. Not meeting diagnostic criteria for low grade serous carcinoma. Elevated risk for possible peritoneal based low grade serous carcinoma was acknowledged. Surveillance recommended. Today reports continued pelvic pain. Migratory but usually low. FH: Mother with breast cancer. PMH Endometriosis Anal fissure Chron s disease Diverticulosis PSH Cholecystectomy sigmoidoscopy Social History Never smoked Denies ETOH, drug use Father: HTN, DM,kidney disease Grandmother: breast cancer Grandfather: Leukemia Interval history: Patient is a 37 year old female with history of chronic pelvic pain s/p LSO 2014 for endometriosis and s/p total laparoscopic hysterectomy, R ovarian cystectomy, R salpingectomy and peritoneum bowel lesion biopsy, and PEDRO on 02/10/22 for low grade serous epilethial proliferation, not diagnostic for carcinoma. Seen one week ago with persistent pelvic pain. This is virtual visit to discuss results. Had pelvic ultrasound: BLADDER: Grossly unremarkable. There is incidental note made of a small right ovarian cyst or follicle measuring up to 1.8 x 1.2 x 1.5 cm. IMPRESSION: Nonobstructing left-sided nephrolithiasis. Urine culture =negative [id number], last 11.6. Interval: Patient states her pelvic pain remains. She states she had one visit with pelvic floor PT, they had her do Kegels which caused vaginal spasms and her to feel worse. She states she feels her urinary retention is getting worse. She also states she is having bowel issues now, was seeing GI but doctor left practice. Assessment/Plan Patient is a 37 year old female with history of chronic pelvic pain s/p LSO 2014 for endometriosis and s/p total laparoscopic hysterectomy, R ovarian cystectomy, R salpingectomy and peritoneum bowel lesion biopsy, and PEDRO on 02/10/22 for low grade serous epilethial proliferation, not diagnostic for carcinoma. Persistent pelvic pain. PLAN: Referral for new pelvic floor office in [place] or [place] Urogyn referral [facility] or [place] [facility] referral [facility] or [place] [facility] in 1 month to discuss symptoms documented in this encounter [facility] Work Phone: 04-09-2023 Note HNO ID: [id number] Author: HELLEN FUENTES PT Service: ? Author Type: Physical Therapist Type: Progress Notes Filed: 04/09/2023 11:57 Note Text: Episode Visit Count: 1 Therapist That Will Accept/Oversee The Plan Of Care: Hellen Bravo Start of Care Date: 04/09/23 Onset Date: 02/10/22 Plan of Care Certification Date: 04/09/23 Next Certification Due Date: 06/08/23 Patient Identified by Name and Date of : Yes REHABILITATION AND SPORTS THERAPY PHYSICAL THERAPY EVALUATION PLAN OF CARE: Assessment: Kaya Arce presents with chief complaint of urinary and fecal incontinence that interferes with bladder function, bowel function . She presents with impairments in decreased core strength; impaired bladder and bowel function. PROMIS? (Patient-Reported Outcomes Measurement Information System) scores were reviewed and physical function domain identified as a rehabilitation concern. Prognosis for therapy is Fair due to: chronic nature of impairments . She will benefit from skilled therapy services to meet the goals established for this plan of care as noted below. Goals for Episode of Care: created on 04/09/23 through 06/08/23 [place] in home exercise program. Patient will demonstrate increase in core strength to at least 3+/5 during manual muscle testing in order to improve function for prior functional tasks. Patient reports nocturia 0-1 times to demonstrate normalized bladder function. Patient reports at least 80% less bladder urgency to avoid incontinent episodes. Patient reports at least 80% improvement in bladder leaks while coughing/sneezing compared to evaluation in order to increase bladder function in activities of daily living. Patient is able to start the stream of urine in less than 5 seconds at least 80% of the time to normalize bladder function. Patient reports increased ability to fully empty bladder at least 80% of the time to normalize bladder function. Patient reports at least 80% improvement in fecal incontinence compared to IE. Patient Goals: improve bladder and bowel function Planned Interventions, Frequency, and Duration: Current Frequency: 1x/week Duration: 4 weeks (reassess at 4 weeks and progress as indicated) Total Number of Visits Planned: 4 Planned Treatment Interventions: Therapeutic exercise (82215), Manual therapy (59946), Self-penitentiary management (16926), Patient/Family/Caregiver Education PLAN FOR NEXT VISIT: assign bladder diary, assess external connective tissue Patient demonstrates good understanding of plan of care and treatment. The above goals and plan of care were discussed and agreed upon by patient/family. SUBJECTIVE: Pt reports having surgery in January 2022 for hysterectomy and endo, states ovarian cancer was found during this. Pt reports long history of bladder and bowel issues, which have worsened since then, states she thinks she's passing kidney stone right now. Pt states she went to PFPT in 2018, primarily focused on abdominal massage and is wondering about doing that again this time, states she did not do any home program activities. Pt reports lower abdominal pain with coughing/sneezing or transitional movements. 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 Intake Information: Prescription present PAST MEDICAL HISTORY Diagnosis Date Abnormal glandular Papanicolaou smear of cervix Abn. Pap smear (cervix) Abnormal maternal glucose tolerance, antepartum 2003 diet controlled Allergic rhinitis, cause unspecified Allergic rhinitis Anal fissure Anal fissure Ankylosis spondylitis Arthritis Asthma Back pain Calculus of kidney 2007 4 stones, followed by Dr. 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 [facility] 04-06-2023 History of Present illness Narrative Patient ID: Kaya Arce is a 37 y.o. female. Primary Care Provider: Rudy Branch DO Subjective Treatment History: Dr. Hellen [facility] Dr. Maci Matta 37 yo who carries a history of endometriosis and chronic pelvic pain [facility] [place] for second opinion on the management of findings of low grade serous epithelial proliferation on 01/2022 laparoscopy. 07/2014 LSO for pain, adnexal mass, elevated CA125 elevated ~ 150s assumed to be secondary to endometriosis. Final pathology: Sclerotic ovary with benign serous inclusions with psammoma bodies, negative for neoplasm. L fallopian tube intraluminal psammoma bodies. Continued pelvic pain. 02/10/2022 surgery: Total laparoscopic hysterectomy, R ovarian cystectomy, R salpingectomy and peritoneum bowel lesion biopsy. Extensive lysis of adhesions needed. Final pathology: Pelvic peritoneum biopsy demonstrated low grade serous epithelial proliferation. Ovarian cystectomy and salpingectomy: Follicular cyst, no significant pathology. CT CAP 03/26/2022 demonstrated evidence for metastatic disease. Repeat CA125 was 22. [facility] tumor board review and consultation with Dr. Colin: Serous phenotype confirmed. Dx: Low grade serous epithelial proliferation. Not meeting diagnostic criteria for low grade serous carcinoma. Elevated risk for possible peritoneal based low grade serous carcinoma was acknowledged. Surveillance recommended. Today reports continued pelvic pain. Migratory but usually low. FH: Mother with breast cancer. PMH Endometriosis Anal fissure Chron s disease Diverticulosis PSH Cholecystectomy sigmoidoscopy Social History Never smoked Denies ETOH, drug use Father: HTN, DM,kidney disease Grandmother: breast cancer Grandfather: Leukemia Objective Visit Vitals BP 133/85 (BP Location: Right arm, Patient Position: Sitting, BP Cuff Size: Adult) Pulse 82 Temp 36 C (96.8 F) (Temporal) Resp 16 Interval history: Patient is a 37 year old female with history of chronic pelvic pain s/p LSO 2014 for endometriosis and s/p total laparoscopic hysterectomy, R ovarian cystectomy, R salpingectomy and peritoneum bowel lesion biopsy, and PEDRO on 02/10/22 for low grade serous epilethial proliferation, not diagnostic for carcinoma. Here for 6 month follow up. [id number]. She states she has been having significant profuse bilateral LQ abdominal pain for the past 4 days, similar to episode she had about 6 months ago. She states the pain is sharp and radiates to her back bilaterally when she lies down, and has been making her nauseas. She states she has a history of kidney stones and kidney infections that have caused pain like this before. She has been using heating packs with little relief, and states the pain is keeping her from sleeping. She also states that for about the last 6 months she has been experiencing rectal bleeding associated with abnormal BM. She states the bleeding can range from a small, bright red amount when she wipes to dark red to black blood that fills the toilet. She reports new acne and a 20 lbs weight gain over the past year. She denies vaginal bleeding or pain. She denies being sexually active. Physical Exam: Constitutional: Doing well. JOSH Eyes: PERRL ENMT: Moist mucus membranes Head/Neck: Supple. Symmetrical Cardiovascular: Regular, rate and rhythm. 2+ equal pulses of the extremities Respiratory/Thorax: CTA. RRR. Chest rise symmetrical. Gastrointestinal: Non-distended, soft, non-tender Genitourinary: Normal external female genitalia. No vulvar lesions noted Speculum exam: Smooth vaginal esqueda without lesions or masses. Vaginal cuff visualized without lesions. Bimanual exam: Smooth vaginal wall without lesions or masses. Surgically absent uterus, cervix, and adnexa. Rectovaginal exam: smooth rectovaginal septum without lesions or masses Musculoskeletal: ROM intact, no joint swelling, normal strength Extremities: No edema Neurological: Alert and oriented x 3. Pleasant and cooperative. Lymphatic: No lymphadenopathy. No lymphedema Psychological: Appropriate mood and behavior Skin: Warm and dry, no lesions, no rashes A complete review of systems was performed and all systems were normal except what is noted in the interval history. Assessment/Plan Patient is a 37 year old female with history of chronic pelvic pain s/p LSO 2014 for endometriosis and s/p total laparoscopic hysterectomy, R ovarian cystectomy, R salpingectomy and peritoneum bowel lesion biopsy, and PEDRO on 02/10/22 for low grade serous epilethial proliferation, not diagnostic for carcinoma. Acute pelvic pain. PLAN: Urine culture today, F/U results Kidney ultrasound, F/U results Telehealth visit to discuss results F/U in 6 months or as needed, Maci velazquez Ca125 today, F/U results Will have PCP follow kidney stones Patient to start pelvic floor PT as scheduled HARVINDER Childers-S2 I was present with the OCEANOGRAPHY PROFESSOR student who participated in the documentation of this note. I have personally seen and re-examined the patient and performed the medical decision-making components (assessment and plan of care). I have reviewed the OCEANOGRAPHY PROFESSOR student documentation and verified the findings in the note as written with additions or exceptions as stated in the body of this note. documented in this encounter [facility] Work Phone: 03-26-2023 Note HNO ID: [id number] Author: Cammy Gómez RD Service: ? Author Type: Registered Dietitian Type: Progress Notes Filed: 03/26/2023 1:10 PM Note Text: [facility] Medical Nutrition Therapy Visit Type: Virtual: I have discussed the nature of this visit with the patient which will occur via [facility] (Phone, Virtual Visit) and she agrees to proceed with this interaction . Patient states reason for visit: POTS/ PCOS/ Prediabetes/ Weight Management Initial Lab Results Component Value Date HBA1C 5.5 01/02/2023 HBA1C 5.5 06/04/2020 HBA1C 5.7 10/26/2019 HBA1C 5.6 07/04/2018 Hx of Gestational Diabetes DEMOGRAPHICS: Co-Morbidities: PAST MEDICAL HISTORY Diagnosis Date Abnormal glandular Papanicolaou smear of cervix Abn. Pap smear (cervix) Abnormal maternal glucose tolerance, antepartum 2003 diet controlled Allergic rhinitis, cause unspecified Allergic rhinitis Anal fissure Anal fissure Ankylosis spondylitis Arthritis Asthma Back pain Calculus of kidney 2007 4 stones, followed by Dr. 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 Recovering from leg injury. She cannot do PT due to POTS/blood pressure/heart rate issues. 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 Sleep: How many hours of sleep on average? Sleep is not good. It is minimal and interrupted Stress: High, fathers health, everything going on right now Diet History: Breakfast: 2 slices of toast with butter, sometimes with peanut butter and orange juice or green tea with honey Lunch: crackers and cheese with lunchmeat OR lunch meat and cheese on a slice of bread, with farooq, apple/banana, chips OR oatmeal OR cottage cheese Dinner: Fish/chicken/hamburger without the bun with rice/noodles/mac and cheese/ cooked carrots/peas/cooked green beans with Regular Eneida wenceslao/ Sprite 6-8 oz Fluids: water, powerade zero, juice, pop Passes kidney stones every few months since 18 y/o. Cut out oxalate, tried calcium citrate. Dx Gastroparesis- avoiding high fat and high fiber. Struggles with: raw veggies, nuts, sugary yogurt, doesn't like beans, caffeine Safe foods: crackers, white toast, potato, cooked carrots, cooked green beans, peas, apple, cottage cheese, pineapple, fruit (without seeds), peaches, chicken, turkey, ham, lean red meat, eggs, Geek yogurt, Allergies: Never tested but told to avoid dairy, gluten Medications: Current Outpatient Medications Medication Sig gabapentin (NEURONTIN) 100 mg capsule Take 2 capsules by mouth three times a day for 30 days. loratadine (CLARITIN) 10 mg tablet Take 1 tablet by mouth every afternoon. sucralfate (CARAFATE) 100 mg/mL suspension 10 ML ORALLY 4 TIMES PER DAY 1 HOUR BEFORE MEALS AND AT BEDTIME ON AN EMPTY STOMACH famotidine (PEPCID) 40 mg tablet Take 1 tablet by mouth every afternoon. nystatin (MYCOSTATIN) powder APPLY TO AFFECTED AREA TWICE DAILY. tretinoin (RETIN-A) 0.05 % cream Apply pea-sized amount to entire face once nightly. Begin 3 times weekly and and gradually increase frequency to nightly as tolerated. ibuprofen (MOTRIN) 600 mg tablet Take 1 tablet by mouth every 6 hours. Take with food. acetaminophen (TYLENOL EXTRA STRENGTH) 500 mg tablet Take 2 tablets by mouth every 6 hours. mesalamine (ROWASA) 4 gram/60 mL enema 4 g by RECTAL route daily at bedtime. lidocaine (XYLOCAINE) 5 % ointment Apply to affected area as needed. baclofen vaginal suppository 10 mg (CPD) Unwrap and inserty 1 Suppository vaginally once daily as directed. EPINEPHrine (EPIPEN 2-SINCERE) 0.3 mg/0.3 mL auto-injector Inject 0.3 mL intramuscularly as needed (Inject in thigh as needed for anaphylaxis and call 911). GENERIC OKAY cyanocobalamin, vitamin B-12, (VITAMIN B-12 ORAL) Take by mouth. flurandrenolide (CORDRAN) 0.05 % lotion Apply to affected area twice daily. As needed. pantoprazole DR (PROTONIX) 40 mg tablet Take 40 mg by mouth once daily. On hold currently d/t trying new med ondansetron orally disintegrating (ZOFRAN ODT) 4 mg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 Ambulatory Assistive Device (Walker, Cane, Wheelchair, Crutches, etc.)? No PATIENT GENDER DATA: Female. status: : No status: NO. PATIENT RELEVANT IMPLANT DATA REVIEWED: Not Applicable RADIOLOGY DEPARTMENT: Ultrasound PERIPHERAL IV DATA: Not applicable SIGNED BY: Tamika Traylor RDMS RVT February 01, 2023 11:25 AM [facility] 02-01-2023 History of Present illness Narrative Episode Visit Count: 3 Therapist That Will Accept/Oversee The Plan Of Care: Tamika Platt Start of Care Date: 01/20/23 Onset Date: 12/09/22 Plan of Care Certification Date: 01/20/23 Next Certification Due Date: 02/24/23 REHABILITATION AND SPORTS THERAPY PHYSICAL THERAPY TREATMENT NOTE ASSESSMENT: Kaya Arce tolerated the session with increased symptoms. She demonstrated difficulty with correcting trunk posture when given cues. Pt. Reports this is due to feeling tired today. Denies that she is weight bearing through the B crutches on the axilla. Improved from 6 degrees of L ankle DF AROM to 15 degrees. The patient will continue to benefit from ongoing skilled physical therapy to progress toward set goals. PLAN FOR NEXT VISIT: measure L ankle DF AROM. Consider adding isometrics to HEP SUBJECTIVE: pt. states shes tired when unable to follow PT cues to correct posture from leaning BUE axilla on crutches upon entry into PT clinic. Pt. sees vascular next week. Pt. reports feeling a little improvement everyday. Pain: Pain Pain Level: 3 Pain Location: Ankle - Left Description: Aching Post Treatment Pain Post Treatment Pain Level: 4 Post Treatment Pain Location: Ankle - Left Post Treatment Pain Description: Aching OBJECTIVE MEASURES WITH LEVEL OF FUNCTION: LE AROM R Ankle Dorsiflexion: 15 Degrees TREATMENT: Therapeutic Exercise: 1: seated scifit x 5 min, level 0, seat 12 1:1 throughout, subjective collected 2: seated soleus and gastroc stretch 3x30 sec each, 3-4 times daily, with strap (3 degrees of DF with knee extended PROM) 3: seated L ankle isometric PF into ball 5x10 sec hold, 2 sets 4: seated B ankle inversion into ball 5x10 sec hold, 2 sets 5: seated L ankle isometric INV into ball 5x10 sec hold, 2 sets 6: seated L ankle isometric EVR into ball 5x10 sec hold, 2 sets 7: seated L ankle AROM DF 2x20 8: seated LAQ LLE 3x12 (pt. complains that the LLE is quivering) Skilled Intervention: Patient was educated in proper exercise technique and purpose for exercises. Skilled judgment was used in selection of appropriate interventions. Correct performance of therapeutic exercises was facilitated with verbal, visual, and tactile cuing. Educated patient on rationale for performing exercises in regards to decreasing fatigue , including balance, increase ease of ADL, and ROM and function . Patient education as noted. Gait Training: Distance (feet): 50' 2x Gait Cues: upirght trunk posture, pt. unable to follow. sintructed to avoid Assistive Device: B crutches, FWW Assist Level: supervision Weight Bearing Status: WBAT LLE (Pt. reports putting half of her weight through her LLE) Skilled Intervention: Patient was provided supervision during pre-gait/gait training to prevent falls and insure safety. Facilitated proper gait cycle with the use of verbal, visual, and tactile cues for correction of gait deviations identified in the objective section above. Skilled judgment used to assess selection, proper sizing, and proper use of assistive device. Billing Therapeutic Exercise Treatment Minutes: 30 Gait Training Treatment Minutes: 10 Skilled Treatment Time Minutes (timed and untimed codes): 40 Total Session Time (minutes): 40 Session Start Time : 1010 Session Stop Time : 1050 Tamika Platt PT documented in this encounter [facility] 02-01-2023 History of Present illness Narrative Radiology Service Progress Note PATIENT NAME: Kaya Arce DATE OF SERVICE: February 01, 2023 TIME: 11:25 AM PATIENT IDENTITY VERIFICATION COMPLETED USING TWO (2) IDENTIFIERS: Name and Date of confirmed by patient verbally. FALL SCREENING: Has the patient had 2 falls in the last year or 1 fall with injury or currently using an Ambulatory Assistive Device (Walker, Cane, Wheelchair, Crutches, etc.)? No PATIENT GENDER DATA: Female. status: : No status: NO. PATIENT RELEVANT IMPLANT DATA REVIEWED: Not Applicable RADIOLOGY DEPARTMENT: Ultrasound PERIPHERAL IV DATA: Not applicable SIGNED BY: Tamika Traylor RDMS RVT February 01, 2023 11:25 AM documented in this encounter [facility] 01-29-2023 Miscellaneous Notes MICHELLE: 09/11/22 documented in this encounter [facility] 01-26-2023 Note HNO ID: [id number] Author: Tamika Platt PT Service: ? Author Type: Physical Therapist Type: Progress Notes Filed: 01/26/2023 9:43 AM Note Text: Episode Visit Count: 2 Therapist That Will Accept/Oversee The Plan Of Care: Tamika Platt Start of Care Date: 01/20/23 Onset Date: 12/09/22 Plan of Care Certification Date: 01/20/23 Next Certification Due Date: 02/24/23 REHABILITATION AND SPORTS THERAPY PHYSICAL THERAPY TREATMENT NOTE ASSESSMENT: Kaya Arce tolerated the session with expected muscle soreness. She demonstrated improvements in AROM of RLE DF and PF. She demonstrates much improved gait with use of FWW as compared to requiring max cues to avoid excessive pressure on the B axilla with use of crutches. The patient will continue to benefit from ongoing skilled physical therapy to progress toward set goals. Current Frequency: 1x/week Duration: 5 weeks PLAN FOR NEXT VISIT: measure AROM of L ankle. continue gait training. SUBJECTIVE: Presents with WC and crutches. Walks to walk back to the gym with crutches. Asks about height. HEP is the same she was doing prior. Pain: Pain Pain Level: 1 Pain Location: Ankle - Left Description: Aching Post Treatment Pain Post Treatment Pain Level: 5 Post Treatment Pain Location: Ankle - Left Post Treatment Pain Description: Aching OBJECTIVE MEASURES WITH LEVEL OF FUNCTION: LE AROM R Ankle Dorsiflexion: 6 Degrees R Ankle Plantar Flexion: 55 Degrees TREATMENT: Therapeutic Exercise: 1: *continue HEP given last vii 2: *seated soleus and gastroc stretch 3x30 sec each, 3-4 times daily Skilled Intervention: Patient was educated in proper exercise technique and purpose for exercises. Reviewed and educated patient on additions/changes for home exercise program as above (*). Skilled judgment was used in selection of appropriate interventions. Provided written instruction for home exercise program to facilitate proper performance and compliance. Educated patient on rationale for performing exercises in regards to decreasing fatigue , increase ease of ADL, and ROM and function . Patient education as noted. Gait Training: Pre gait training: adjusted crutches, advised smaller crutches. Distance (feet): 80' Gait Cues: upright trunk posture, WBAT -,keep the RLE knee extended during stance, avoid leaning forward to prevent pressure of BUE axilla Assistive Device: B crutches, FWW Assist Level: SBA Weight Bearing Status: WBAT LLE Skilled Intervention: Patient was provided stand by assist during pre-gait/gait training to prevent falls and insure safety. Gait belt utilized during session for safety. Skilled judgment used to assess selection, proper sizing, and proper use of assistive device. Provided written instruction for home program to facilitate proper performance and compliance. Correct performance of home program was facilitated with verbal, visual, and tactile cueing. Self-Chcf Management: 1: at length, discussed importance of restoring gait pattern following cue for correct use of crtches. 2: discussed that pt. is more appropriate to use a walker to avoid putting pressure on the axilla -- discussed places to purchase or rent a FWW 3: strongly discoursed use of WC as a walker 4: discussed use of night splints - PT ecnouraged. 5: suggested frequency over intensity with stretches and AROM strengthening exercises to maintain mobility Skilled Intervention: Skilled judgment in the selection of proper modification for activity of daily living/home management based on clinical presentation, deficits, and needs. Provided written instruction for activities of daily living techniques to facilitate proper performance and compliance. Activity progression based on professional judgement. Reviewed and educated patient on additions/changes for home program as noted above with an (*). Provided written instruction for home program to facilitate proper performance and compliance. Billing Therapeutic Exercise Treatment Minutes: 10 Self-Care/Home Management Treatment Minutes: 10 Gait Training Treatment Minutes: 20 Skilled Treatment Time Minutes (timed and untimed codes): 40 Total Session Time (minutes): 40 Session Start Time : 857 Session Stop Time : 937 Tamika Platt, PT [facility] 01-26-2023 History of Present illness Narrative Episode Visit Count: 2 Therapist That Will Accept/Oversee The Plan Of Care: Tamika Platt Start of Care Date: 01/20/23 Onset Date: 12/09/22 Plan of Care Certification Date: 01/20/23 Next Certification Due Date: 02/24/23 REHABILITATION AND SPORTS THERAPY PHYSICAL THERAPY TREATMENT NOTE ASSESSMENT: Kaya Arce tolerated the session with expected muscle soreness. She demonstrated improvements in AROM of RLE DF and PF. She demonstrates much improved gait with use of FWW as compared to requiring max cues to avoid excessive pressure on the B axilla with use of crutches. The patient will continue to benefit from ongoing skilled physical therapy to progress toward set goals. Current Frequency: 1x/week Duration: 5 weeks PLAN FOR NEXT VISIT: measure AROM of L ankle. continue gait training. SUBJECTIVE: Presents with WC and crutches. Walks to walk back to the gym with crutches. Asks about height. HEP is the same she was doing prior. Pain: Pain Pain Level: 1 Pain Location: Ankle - Left Description: Aching Post Treatment Pain Post Treatment Pain Level: 5 Post Treatment Pain Location: Ankle - Left Post Treatment Pain Description: Aching OBJECTIVE MEASURES WITH LEVEL OF FUNCTION: LE AROM R Ankle Dorsiflexion: 6 Degrees R Ankle Plantar Flexion: 55 Degrees TREATMENT: Therapeutic Exercise: 1: *continue HEP given last viist 2: *seated soleus and gastroc stretch 3x30 sec each, 3-4 times daily Skilled Intervention: Patient was educated in proper exercise technique and purpose for exercises. Reviewed and educated patient on additions/changes for home exercise program as above (*). Skilled judgment was used in selection of appropriate interventions. Provided written instruction for home exercise program to facilitate proper performance and compliance. Educated patient on rationale for performing exercises in regards to decreasing fatigue , increase ease of ADL, and ROM and function . Patient education as noted. Gait Training: Pre gait training: adjusted crutches, advised smaller crutches. Distance (feet): 80' Gait Cues: upright trunk posture, WBAT -,keep the RLE knee extended during stance, avoid leaning forward to prevent pressure of BUE axilla Assistive Device: B crutches, FWW Assist Level: SBA Weight Bearing Status: WBAT LLE Skilled Intervention: Patient was provided stand by assist during pre-gait/gait training to prevent falls and insure safety. Gait belt utilized during session for safety. Skilled judgment used to assess selection, proper sizing, and proper use of assistive device. Provided written instruction for home program to facilitate proper performance and compliance. Correct performance of home program was facilitated with verbal, visual, and tactile cueing. Self-Chcf Management: 1: at length, discussed importance of restoring gait pattern following cue for correct use of crtches. 2: discussed that pt. is more appropriate to use a walker to avoid putting pressure on the axilla -- discussed places to purchase or rent a FWW 3: strongly discoursed use of WC as a walker 4: discussed use of night splints - PT ecnouraged. 5: suggested frequency over intensity with stretches and AROM strengthening exercises to maintain mobility Skilled Intervention: Skilled judgment in the selection of proper modification for activity of daily living/home management based on clinical presentation, deficits, and needs. Provided written instruction for activities of daily living techniques to facilitate proper performance and compliance. Activity progression based on professional judgement. Reviewed and educated patient on additions/changes for home program as noted above with an (*). Provided written instruction for home program to facilitate proper performance and compliance. Billing Therapeutic Exercise Treatment Minutes: 10 Self-Care/Home Management Treatment Minutes: 10 Gait Training Treatment Minutes: 20 Skilled Treatment Time Minutes (timed and untimed codes): 40 Total Session Time (minutes): 40 Session Start Time : 857 Session Stop Time : 937 Tamika Platt PT documented in this encounter [facility] 01-20-2023 Note HNO ID: [id number] Author: Tamika Platt PT Service: ? Author Type: Physical Therapist Type: Progress Notes Filed: 01/20/2023 6:45 PM Note Text: Episode Visit Count: 1 Therapist That Will Accept/Oversee The Plan Of Care: Tamika Platt Start of Care Date: 01/20/23 Onset Date: 12/09/22 Plan of Care Certification Date: 01/20/23 Next Certification Due Date: 02/24/23 Patient Identified by Name and Date of : Yes REHABILITATION AND SPORTS THERAPY PHYSICAL THERAPY EVALUATION PLAN OF CARE: Assessment: Kaya Arce presents with diagnosis of strain of gastrocnemius muscle of left lower extremity that interferes with standing, rising from a chair, walking, sleeping . She presents with impairments in ADL's, balance, gait, independence in exercise, joint mobility, overall function, patient reported outcome measures, range of motion, strength, symptom management, and tissue tenderness. Patient did not complete the PROMIS? (Patient Reported Outcome Measures Information System). Due to substantial time required for pt. To provide subjective reports and cues to attend to task. Prognosis for therapy is Poor due to: limited compliance with previous therapy, chronic nature of impairments, clinical presentation, multiple co- morbidities, coping skills, limited tolerance to activity, poor historian, poor understanding of deficits . She will benefit from skilled therapy services to meet the goals established for this plan of care as noted below. Goals for Episode of Care: created on 01/20/23 through 02/24/23 [place] in home exercise program. Patient will decrease pain rating by 2 points to meet minimal clinical important difference for numeric pain rating scale. Perform standing and ambulation with decreased report of symptoms/pain in 5 weeks. Perform FWB LLE without pain. Normal gait. Patient Goals: walk community distances with or without AD Planned Interventions, Frequency, and Duration: Current Frequency: 1x/week Duration: 5 weeks Total Number of Visits Planned: 5 Planned Treatment Interventions: Therapeutic exercise (40413), Neuromuscular re-education (03455), Manual therapy (41291), Therapeutic activities (24046), Self-penitentiary management (22387), Gait Training (25123) PLAN FOR NEXT VISIT: assess symptom response to PROM stretching Patient demonstrates good understanding of plan of care and treatment. The above goals and plan of care were discussed and agreed upon by patient/family. SUBJECTIVE: for L lower leg pain that onset with stepping in her garden. She fell and felt tearing which she describes like breaking spaghetti. Pt. couldn't WB or amb. Ambulance was called. She was taken to ER. ED wrapped the leg. X-ray negative. Pt. refused casting as recommended by ED per pt. report. Pt. couldn't tolerated US at ED, but did have it done later. ED physician determined a plantaris tendon per pt. report, MRI showed a L gastroc tear per pt. report. Pt. also reports they found a blood clot not in the vein but in the muscle. Inconsistent with pt. chart. Pt. has not walked since the day of her injury. She is unable to tolerate her night splint due to pain therefore reports non-compliance. She has been doing some AROM exercises including ankle pumps, INV/EVR, and circles. She was advised to wear a boot and WBAT. She presents in wc with crutches claiming that she is unable to tolerate the boot. Patient Goals: walk community distances with or without AD Functional Limitations: standing, rising from a chair, walking, sleeping Prior Level of Function: Independent without limitations Relevant History Past Relevant Medical Conditions: (POTS - per pt. report, LLE drop foot) Home Environment Home Type: [place] Entry To Home: Ramp Equipment Owned: (showers on her own, sits in a shower chair, shower has no grab bars) Transportation: (currently driving) Intake Information: Prescription present Previous Treatment: Exercises per physician, Ice (tiago wrap aboud the L ankle) Falls Interview: Fall with injury in the last year, Uses an assistive device Falls Intervention: Instructed patient on safety and use of assistive device and awareness in regards to falls prevention. Pain: Pain Pain Level: 2 Pain Location: Ankle - Left Description: Aching Frequency: Continuous, At rest Post Treatment Pain Post Treatment Pain Level: 4 Post Treatment Pain Location: Ankle - Left Post Treatment Pain Description: Aching PROMIS Scales T-scores: mean of general population = 50. 5 points is clinically meaningfully difference Percentiles provide an indication of how the patient's score ranks in relation to the general population. Higher percentile rankings indicate better function/quality of life. 50th percentile is the average of the general population and indicates half of respondents had a worse score. OBJECTIVE MEASURES WITH LEVEL OF FUNCTION: An (more content not included)... [facility] 01-20-2023 History of Present illness Narrative Episode Visit Count: 1 Therapist That Will Accept/Oversee The Plan Of Care: Tamika Platt Start of Care Date: 01/20/23 Onset Date: 12/09/22 Plan of Care Certification Date: 01/20/23 Next Certification Due Date: 02/24/23 Patient Identified by Name and Date of : Yes REHABILITATION AND SPORTS THERAPY PHYSICAL THERAPY EVALUATION PLAN OF CARE: Assessment: Kaya Arce presents with diagnosis of strain of gastrocnemius muscle of left lower extremity that interferes with standing, rising from a chair, walking, sleeping . She presents with impairments in ADL's, balance, gait, independence in exercise, joint mobility, overall function, patient reported outcome measures, range of motion, strength, symptom management, and tissue tenderness. Patient did not complete the PROMIS (Patient Reported Outcome Measures Information System). Due to substantial time required for pt. To provide subjective reports and cues to attend to task. Prognosis for therapy is Poor due to: limited compliance with previous therapy, chronic nature of impairments, clinical presentation, multiple co- morbidities, coping skills, limited tolerance to activity, poor historian, poor understanding of deficits . She will benefit from skilled therapy services to meet the goals established for this plan of care as noted below. Goals for Episode of Care: created on 01/20/23 through 02/24/23 [place] in home exercise program. Patient will decrease pain rating by 2 points to meet minimal clinical important difference for numeric pain rating scale. Perform standing and ambulation with decreased report of symptoms/pain in 5 weeks. Perform FWB LLE without pain. Normal gait. Patient Goals: walk community distances with or without AD Planned Interventions, Frequency, and Duration: Current Frequency: 1x/week Duration: 5 weeks Total Number of Visits Planned: 5 Planned Treatment Interventions: Therapeutic exercise (00782), Neuromuscular re-education (68242), Manual therapy (45577), Therapeutic activities (79453), Self-penitentiary management (01363), Gait Training (61104) PLAN FOR NEXT VISIT: assess symptom response to PROM stretching Patient demonstrates good understanding of plan of care and treatment. The above goals and plan of care were discussed and agreed upon by patient/family. SUBJECTIVE: for L lower leg pain that onset with stepping in her garden. She fell and felt tearing which she describes like breaking spaghetti. Pt. couldn't WB or amb. Ambulance was called. She was taken to ER. ED wrapped the leg. X-ray negative. Pt. refused casting as recommended by ED per pt. report. Pt. couldn't tolerated US at ED, but did have it done later. ED physician determined a plantaris tendon per pt. report, MRI showed a L gastroc tear per pt. report. Pt. also reports they found a blood clot not in the vein but in the muscle. Inconsistent with pt. chart. Pt. has not walked since the day of her injury. She is unable to tolerate her night splint due to pain therefore reports non-compliance. She has been doing some AROM exercises including ankle pumps, INV/EVR, and circles. She was advised to wear a boot and WBAT. She presents in w[place] with crutches claiming that she is unable to tolerate the boot. Patient Goals: walk community distances with or without AD Functional Limitations: standing, rising from a chair, walking, sleeping Prior Level of Function: Independent without limitations Relevant History Past Relevant Medical Conditions: (POTS - per pt. report, LLE drop foot) Home Environment Home Type: [place] Entry To Home: Ramp Equipment Owned: (showers on her own, sits in a shower chair, shower has no grab bars) Transportation: (currently driving) Intake Information: Prescription present Previous Treatment: Exercises per physician, Ice (tiago wrap aboud the L ankle) Falls Interview: Fall with injury in the last year, Uses an assistive device Falls Intervention: Instructed patient on safety and use of assistive device and awareness in regards to falls prevention. Pain: Pain Pain Level: 2 Pain Location: Ankle - Left Description: Aching Frequency: Continuous, At rest Post Treatment Pain Post Treatment Pain Level: 4 Post Treatment Pain Location: Ankle - Left Post Treatment Pain Description: Aching PROMIS Scales T-scores: mean of general population = 50. 5 points is clinically meaningfully difference Percentiles provide an indication of how the patient's score ranks in relation to the general population. Higher percentile rankings indicate better function/quality of life. 50th percentile is the average of the general population and indicates half of respondents had a worse score. OBJECTIVE MEASURES WITH LEVEL OF FUNCTION: Ankle Observations Weight Bearing Status: WBAT L Ankle Presents with: Comments Comments: unremarkable L Foot Observations: tiago wrapping, no discoloration or swelling observed LE AROM R Ankle Dorsiflexion: 4 Degrees R Ankle Plantar Flexion: 46 Degrees R Ankle Inversion: 23 R Ankle Eversion: 12 Education: Education Learning Preferences: Demonstration, Explanation, Performance, Printed Materials Barriers: Emotions Learning/educational needs: Plan of Care, Home exercise program, Gait Training, Brace Fit Education Provided: Yes, see treatment interventions for education provided Education Provided To: Patient Education Mode/Type: Demonstration, Explanation/Discussion, Literature/Printed Materials, Performance Response to Education/Teach Back: States/Identifies, Return Demonstration TREATMENT: PT Treatment Interventions: Therapeutic Exercise, Self-Chcf Management Evaluation Therapeutic Exercise: 1: *Seated Heel Raise - 3 x daily - 7 x weekly - 3 sets - 20 reps Seated Ankle Inversion 2: *Seated Toe Raise - 3 x daily - 7 x weekly - 3 sets - 20 reps 3: *Seated Ankle Inversion Eversion AROM - 3 x daily - 7 x weekly - 3 sets - 20 reps Skilled Intervention: Patient was educated in proper exercise technique and purpose for exercises. Skilled judgment was used in selection of appropriate interventions. Provided written instruction for home exercise program to facilitate proper performance and compliance. Correct performance of therapeutic exercises was facilitated with verbal, visual, and tactile cuing. Educated patient on rationale for performing exercises in regards to decreasing fatigue , including balance, increase ease of ADL, and ROM and function . Patient education as noted. Self-Chcf Management: 1: *at length discussed the importance of restoring AROM to normalize gait 2: *at length discussed PT role to restore physical function. PT does not diagnose or treat circulation. Pt. has many questions regarding her concerns about limited circulation in the LLE. No signs at this time. Pt. is to discuss these concerns with her physician. 3: *discussed importance of following physician orders - including wearing boot and using night splints Skilled Intervention: Skilled judgment in the selection of proper modification for activity of daily living/home management based on clinical presentation, deficits, and needs. Provided written instruction for activities of daily living techniques to facilitate proper performance and compliance. Reviewed patient specific diagnosis in relation to activities of daily living/home management. Activity progression based on professional judgement. Reviewed and educated patient on additions/changes for home program as noted above with an (*). Provided written instruction for home program to facilitate proper performance and compliance. Correct performance of home program was facilitated with verbal, visual, and tactile cueing. Billing * Evaluation Low Complexity: 1 Unit Therapeutic Exercise Treatment Minutes: 10 Self-Care/Home Management Treatment Minutes: 15 Skilled Treatment Time Minutes (timed and untimed codes): 45 Total Session Time (minutes): 45 Session Start Time : 1744 Session Stop Time : 1829 Tamika Platt PT documented in this encounter [facility] 01-20-2023 Miscellaneous Notes Patient spoke with Elisabet Springer on 01-14-23. First PT appointment is today. Glenis Lau, AT, ATC documented in this encounter [facility] 01-08-2023 Miscellaneous Notes Spoke with patient on the phone. Last seen by Dr. Ford on 01-05-23. Reports that she has noticed an increase in color changes to her left lower extremity - more consistent purple/blue color from the knee down and worse around the ankle. She reports that the back of her leg is a little warm. She also reports some feelings of being out of breath with minimal exertion which she describes as mild. No difficult breathing or chest pain. I advised that she needs to go today to get an US to rule out/assess for potential DVT. This order had been placed on Wednesday when she saw Dr. Ford. I called the [facility] location which was the patient's preferred location and they are able to get her in for an US at noon today (an hour from now). Advised patient that this is at the [facility] location. ([address] [facility]). Patient acknowledged and she will be there at noon for the US. I will follow up with the patient after this is completed this afternoon. All questions were answered. Glenis Lau, AT, ATC documented in this encounter [facility] 01-05-2023 Note HNO ID: [id number] Author: Ky Ford MD Service: ? Author Type: Physician Type: Progress Notes Filed: 01/05/2023 3:14 PM Note Text: I have reviewed the history and physical obtained by my resident or fellow. HPI explored in detail with the patient. Pt was seen by me and cameron findings were confirmed. I agree with the findings as documented. I personally participated the patient's assessment and treatment recommendations. Ky Ford MD [facility] 01-05-2023 Note HNO ID: [id number] Author: Anmol Davis MD Service: ? Author Type: Resident Type: Progress Notes Filed: 01/05/2023 3:14 PM Note Text: DEPARTMENT OF ORTHOPAEDICS Consultation as a request of self HISTORY OF PRESENT ILLNESS: This is a pleasant 37 year old female, who presents today with a chief complaint of left lower leg pain. Patient injured her right lower leg about 3 and half weeks ago. States that she was working her garden and went to stand up and pivot when she felt a pop or snap in her gastroc muscle. She fell and noted severe pain in the posterior lower leg. She was unable to ambulate and her son called 911. Imaging in the emergency department was negative and the patient was not able to tolerate a DVT ultrasound. She eventually followed up with an orthopedic surgeon in [place] where they told her that she could weight-bear as tolerated and gave her a boot for comfort. She eventually obtained an MRI Which she brought with her today on a disc. Patient presents here today for second opinion. Patient does not endorse some prodromal pain in this area for about 2 weeks prior to her acute event. She notes it was painful [place]. Denies a prior blood clot, has never been on blood thinners. Does have a history of malignancy. Also endorses a history of liver and kidney issues. Endorses POTS. Since her injury, she is noted minimal improvement. She still unable to put any weight on the leg. She largely avoids moving her ankle due to pain in the posterior lower leg. She states that her lower leg and foot become intermittently swollen and blue. PAST MEDICAL HISTORY Diagnosis Date Abnormal glandular Papanicolaou smear of cervix Abn. Pap smear (cervix) Abnormal maternal glucose tolerance, antepartum 2003 diet controlled Allergic rhinitis, cause unspecified Allergic rhinitis Anal fissure Anal fissure Ankylosis spondylitis Arthritis Asthma Back pain Calculus of kidney 2007 4 stones, followed by Dr. long Cardiac arrhythmia Crohn's disease (HCC) Daytime somnolence Diaphragmatic hernia without mention of obstruction or gangrene Elevated lipids Endometriosis Esophageal reflux Essential hypertension 06/03/2018 Fibromyalgia Flatulence, eructation, and gas pain gestational diabetes Hemorrhage of rectum and anus Hemorrhoids Hirsutism HTN (hypertension) Hypokalemia Interstitial cystitis Irregular menses Kidney stones Lupus (HCC) Lyme disease Numbness Obesity, Class I, BMI 30-34.9 10/06/2017 ALVERTO (obstructive sleep apnea) 02/06/2022 PCOS (polycystic ovarian syndrome) PMH - PAST MEDICAL HISTORY OF L4-L5 conjoined nerves affecting R leg-sees neuro [facility] Renal disease Syncope Unspecified asthma(493.90) PAST SURGICAL HISTORY Procedure Laterality Date DELIVERY ONLY 03/29/2003 , low cervical COLONOSCOPY FLX DX W/COLLJ SPEC WHEN PFRMD 03/29/1986 Colonoscopy COLONOSCOPY FLX DX W/COLLJ SPEC WHEN PFRMD 06/20/2014 Colonoscopy CONIZATION CERVIX W/WO DANDC RPR ELTRD EXC 03/29/2001 LEEP-Cervix ESWL X1 F SALPINGO-OOPHORECTOMY 08/21/2014 LEFT only LAPAROSCOPY TOTAL HYST 250 G OR LESS 02/10/2022 Right salpingectomy PAST SURGICAL HISTORY OF WISDOM TEETH PAST SURGICAL HISTORY OF < 1 yr old bilat inguinal hernia repair REMOVAL GALLBLADDER 2019 SIGMOIDOSCOPY FLX DX W/COLLJ SPEC BR/WA IF PFRMD Sigmoidoscopy, flexible Current Outpatient Medications Medication Sig Dispense Refill acetaminophen (TYLENOL EXTRA STRENGTH) 500 mg tablet Take 2 tablets by mouth every 6 hours. 60 tablet 0 albuterol HFA (PROVENTIL HFA, VENTOLIN HFA) 90 mcg/actuation inhaler Inhale 2 Puffs as instructed. atenolol (TENORMIN) 25 mg tablet TAKE 1/2-1 TAB BY MOUTH TWICE A DAY DIRECTED 0 baclofen vaginal suppository 10 mg (CPD) Unwrap and inserty 1 Suppository vaginally once daily as directed. 30 Suppository 5 BIOTIN ORAL Take by mouth once daily. cetirizine 10 mg tablet Take 1 tablet by mouth once daily. 30 tablet 3 clascoterone 1 % crea Apply 1 application to affected area twice daily. 60 g 3 clobetasol (TEMOVATE) 0.05 % ointment Apply to affected area twice daily as needed (for severe flares of the dermatitis on the hands and feet.). For flares on the hands 60 g 0 Clobetasol Propionate (CLOBEX) 0.05 % sham Apply to affected area once daily as needed (for scalp irritation). Apply to dry scalp, leave on for 15 minutes and then wash off. 118 mL 3 cyanocobalamin, vitamin B-12, (VITAMIN B-12 ORAL) Take by mouth. docusate sodium (COLACE) 100 mg capsule Take 100 mg by mouth twice daily as needed. EPINEPHrine (EPIPEN 2-SINCERE) 0.3 mg/0.3 mL auto-injector Inject 0.3 mL intramuscularly as needed (Inject in thigh as needed for anaphylaxis and call 911). GENERIC OKAY 2 Each 3 famotidine (PEPCID) 40 mg tablet Take 1 tablet by mouth every afternoon. flurandrenolide (C (more content not included)... [facility] 01-05-2023 Note HNO ID: [id number] Author: Wilmar Coronado RT(R) Service: Radiology Author Type: Technologist Type: Progress Notes Filed: 01/05/2023 1:45 PM Note Text: Radiology Service Progress Note PATIENT NAME: Kaya Arce DATE OF SERVICE: January 05, 2023 TIME: 1:44 PM PATIENT IDENTITY VERIFICATION COMPLETED USING TWO (2) IDENTIFIERS: Name and Date of confirmed by patient verbally. FALL SCREENING: Has the patient had 2 falls in the last year or 1 fall with injury or currently using an Ambulatory Assistive Device (Walker, Cane, Wheelchair, Crutches, etc.)? No PATIENT GENDER DATA: Female. status: : No status: NO. PATIENT RELEVANT IMPLANT DATA REVIEWED: Not Applicable RADIOLOGY DEPARTMENT: General X-ray: Exam(s) Completed: Lower Extremity X-Ray(s): Knee, AP / Lat / Tunne / Merchant Left PERIPHERAL IV DATA: Not applicable SIGNED BY: Wilmar Coronado RT(R) January 05, 2023 1:44 PM [facility] 01-05-2023 History of Present illness Narrative I have reviewed the history and physical obtained by my resident or fellow. HPI explored in detail with the patient. Pt was seen by me and cameron findings were confirmed. I agree with the findings as documented. I personally participated the patient's assessment and treatment recommendations. Ky Ford MD DEPARTMENT OF ORTHOPAEDICS Consultation as a request of self HISTORY OF PRESENT ILLNESS: This is a pleasant 37 year old female, who presents today with a chief complaint of left lower leg pain. Patient injured her right lower leg about 3 and half weeks ago. States that she was working her garden and went to stand up and pivot when she felt a pop or snap in her gastroc muscle. She fell and noted severe pain in the posterior lower leg. She was unable to ambulate and her son called 911. Imaging in the emergency department was negative and the patient was not able to tolerate a DVT ultrasound. She eventually followed up with an orthopedic surgeon in [place] where they told her that she could weight-bear as tolerated and gave her a boot for comfort. She eventually obtained an MRI Which she brought with her today on a disc. Patient presents here today for second opinion. Patient does not endorse some prodromal pain in this area for about 2 weeks prior to her acute event. She notes it was painful [place]. Denies a prior blood clot, has never been on blood thinners. Does have a history of malignancy. Also endorses a history of liver and kidney issues. Endorses POTS. Since her injury, she is noted minimal improvement. She still unable to put any weight on the leg. She largely avoids moving her ankle due to pain in the posterior lower leg. She states that her lower leg and foot become intermittently swollen and blue. PAST MEDICAL HISTORY Diagnosis Date Abnormal glandular Papanicolaou smear of cervix Abn. Pap smear (cervix) Abnormal maternal glucose tolerance, antepartum 2003 diet controlled Allergic rhinitis, cause unspecified Allergic rhinitis Anal fissure Anal fissure Ankylosis spondylitis Arthritis Asthma Back pain Calculus of kidney 2007 4 stones, followed by Dr. long Cardiac arrhythmia Crohn's disease (HCC) Daytime somnolence Diaphragmatic hernia without mention of obstruction or gangrene Elevated lipids Endometriosis Esophageal reflux Essential hypertension 06/03/2018 Fibromyalgia Flatulence, eructation, and gas pain gestational diabetes Hemorrhage of rectum and anus Hemorrhoids Hirsutism HTN (hypertension) Hypokalemia Interstitial cystitis Irregular menses Kidney stones Lupus (HCC) Lyme disease Numbness Obesity, Class I, BMI 30-34.9 10/06/2017 ALVERTO (obstructive sleep apnea) 02/06/2022 PCOS (polycystic ovarian syndrome) PMH - PAST MEDICAL HISTORY OF L4-L5 conjoined nerves affecting R leg-sees neuro [facility] Renal disease Syncope Unspecified asthma(493.90) PAST SURGICAL HISTORY Procedure Laterality Date DELIVERY ONLY 03/29/2003 , low cervical COLONOSCOPY FLX DX W/COLLJ SPEC WHEN PFRMD 03/29/1986 Colonoscopy COLONOSCOPY FLX DX W/COLLJ SPEC WHEN PFRMD 06/20/2014 Colonoscopy CONIZATION CERVIX W/WO D&C RPR ELTRD EXC 03/29/2001 LEEP-Cervix ESWL X1 F SALPINGO-OOPHORECTOMY 08/21/2014 LEFT only LAPAROSCOPY TOTAL HYST 250 G OR LESS 02/10/2022 Right salpingectomy PAST SURGICAL HISTORY OF WISDOM TEETH PAST SURGICAL HISTORY OF < 1 yr old bilat inguinal hernia repair REMOVAL GALLBLADDER 2019 SIGMOIDOSCOPY FLX DX W/COLLJ SPEC BR/WA IF PFRMD Sigmoidoscopy, flexible Current Outpatient Medications Medication Sig Dispense Refill acetaminophen (TYLENOL EXTRA STRENGTH) 500 mg tablet Take 2 tablets by mouth every 6 hours. 60 tablet 0 albuterol HFA (PROVENTIL HFA, VENTOLIN HFA) 90 mcg/actuation inhaler Inhale 2 Puffs as instructed. atenolol (TENORMIN) 25 mg tablet TAKE 1/2-1 TAB BY MOUTH TWICE A DAY DIRECTED 0 baclofen vaginal suppository 10 mg (CPD) Unwrap and inserty 1 Suppository vaginally once daily as directed. 30 Suppository 5 BIOTIN ORAL Take by mouth once daily. cetirizine 10 mg tablet Take 1 tablet by mouth once daily. 30 tablet 3 clascoterone 1 % crea Apply 1 application to affected area twice daily. 60 g 3 clobetasol (TEMOVATE) 0.05 % ointment Apply to affected area twice daily as needed (for severe flares of the dermatitis on the hands and feet.). For flares on the hands 60 g 0 Clobetasol Propionate (CLOBEX) 0.05 % sham Apply to affected area once daily as needed (for scalp irritation). Apply to dry scalp, leave on for 15 minutes and then wash off. 118 mL 3 cyanocobalamin, vitamin B-12, (VITAMIN B-12 ORAL) Take by mouth. docusate sodium (COLACE) 100 mg capsule Take 100 mg by mouth twice daily as needed. EPINEPHrine (EPIPEN 2-SINCERE) 0.3 mg/0.3 mL auto-injector Inject 0.3 mL intramuscularly as needed (Inject in thigh as needed for anaphylaxis and call 911). GENERIC OKAY 2 Each 3 famotidine (PEPCID) 40 mg tablet Take 1 tablet by mouth every afternoon. flurandrenolide (CORDRAN) 0.05 % lotion Apply to affected area twice daily. As needed. 120 mL 1 gabapentin (NEURONTIN) 300 mg capsule Take 1 capsule by mouth once daily for 60 days. 30 capsule 1 hydrocortisone (HYTONE,CETACORT) 1 % lotion Apply to affected area twice daily. 60 mL ibuprofen (MOTRIN) 600 mg tablet Take 1 tablet by mouth every 6 hours. Take with food. 60 tablet 0 lidocaine (XYLOCAINE) 5 % ointment Apply to affected area as needed. loratadine (CLARITIN) 10 mg tablet Take 1 tablet by mouth every afternoon. mesalamine (ROWASA) 4 gram/60 mL enema 4 g by RECTAL route daily at bedtime. MULTI-VITAMIN ORAL Take by mouth once daily. 2 tablets daily nystatin (MYCOSTATIN) powder APPLY TO AFFECTED AREA TWICE DAILY. 60 g 1 ondansetron orally disintegrating (ZOFRAN ODT) 4 mg disintegrating tablet Take 1 tablet by mouth every 8 hours as needed. 40 Each 1 oxyCODONE IR (ROXICODONE) 5 mg immediate release tablet Take 1 tablet by mouth every 8 hours as needed for pain. (Patient not taking: Reported on 04/07/2022) [address] (PROTONIX) 40 mg tablet Take 40 mg by mouth once daily. On hold currently d/t trying new med phenazopyridine (PYRIDIUM) 200 mg tablet Take 1 tablet by mouth three times daily as needed for pain. 9 tablet 0 potassium chloride (KLOR-CON 10) 10 mEq tablet Take 2 tablets by mouth once daily. (Patient taking differently: Take 20 mEq by mouth two times a day.) 60 tablet 11 Senna 8.6 mg tab Take 1 tablet by mouth twice daily. 60 tablet 0 sucralfate (CARAFATE) 100 mg/mL suspension 10 ML ORALLY 4 TIMES PER DAY 1 HOUR BEFORE MEALS AND AT BEDTIME ON AN EMPTY STOMACH tretinoin (RETIN-A) 0.05 % cream Apply pea-sized amount to entire face once nightly. Begin 3 times weekly and and gradually increase frequency to nightly as tolerated. 45 g 3 No current facility-administered medications for this visit. ALLERGIES Allergen Reactions Eucalyptus Hives, Swelling, Anaphylaxis, Shortness of Breath, Other: See Comments Tachycardia; laryngeal swelling Hydrocodone Itching Keflex [Cephalexin] Hives, Anaphylaxis Tolerates amoxicillin Tamsulosin Other: See Comments Bees Hives, Swelling Cardizem [Diltiazem* Intolerance Spikes BP Ciprofloxacin Other: See Comments Doxycycline GI Upset Not able to tolerate due to GI effects Hydroxychloroquine GI Upset Latex Swelling Tizanidine Mental Status Change Low HR, cold and clammy (subjective only) FAMILY HISTORY Problem Relation Age of Onset Prostate Cancer Maternal Grandfather Cancer Maternal Grandfather leukemia other (parkinsons) Maternal Grandfather Coronary Artery Disease Paternal Grandfather 69 suddenly Diabetes Paternal Grandmother Lipids Mother Osteoporosis Mother Heart disease Mother CAD and stent at age 71. Lipids Father Hypertension Father other (kidney stones) Father other (CHF) Father other (spastic 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) Son Breast Cancer Maternal Grandmother age 90 other (down syndrome) Paternal Uncle Social History Tobacco Use Smoking status: Never Smokeless tobacco: Never Vaping Use Vaping Use: Never used Substance Use Topics Alcohol use: Not Currently Drug use: No REVIEW OF SYSTEMS: GENERAL: No weight loss, malaise or fevers HEENT: Negative for frequent or significant headaches, No changes in hearing or vision, no nose bleeds or other nasal problems NECK: Negative for lumps, goiter, pain and significant neck swelling RESPIRATORY: Negative for cough, hemoptysis, wheezing, COPD, dyspnea or shortness of breath CARDIOVASCULAR: Negative for chest pain, leg swelling, hypertension, CHF or palpitations GI: No nausea, vomiting, or diarrhea : No history of dysuria, frequency or incontinence INSTITUTION DIRECTOR: Negative for abnormal vaginal bleeding, abnormal vaginal discharge MUSCULOSKELETAL: Negative for joint pain or swelling, back pain or muscle pain SKIN: Negative for lesions, rash, and itching HEMATOLOGY/LYMPHOLOGY: Negative for prolonged bleeding, bruising easily or swollen nodes ENDOCRINE: Negative for cold or heat intolerance, polyuria, polydipsia and goiter RADIOGRAPHS: left AP, lateral, two obliques dated today revealed no acute processes, fractures, or dislocations. OTHER STUDIES: Patient brought an MRI of the left lower leg on a disc which was reviewed with the patient and downloaded into [email or web address]. This demonstrates hematoma between the medial head of the gastroc and the soleus muscle near the myotendinous junction. PHYSICAL EXAM: LMP 02/10/2022 General: Appears stated age, well built, in no apparent distress. Psychiatric: Mood and affect appropriate. Alert and oriented x 3 without evidence of abnormal respiratory effort. Musculoskeletal Exam: Gait patient unable to ambulate Right lower leg: Tender to palpation the posterior medial aspect of the lower leg. No palpable defect in the muscle belly or Achilles tendon. Passive dorsiflexion with the knee extended reproduces pain in the posterior lower leg. This is improved with the knee bent. Pain is reproduced with active plantarflexion. Good cap refill in the toes. Sensory intact in all 5 nerves nerve distributions in the foot. PROCEDURE: Not applicable IMPRESSION: Strain of the medial head of the left gastroc Discussed the patient that she likely strained medial head of the left gastroc muscle. Discussed that this is a nonoperative problem. Discussed that now that she is almost a month out, she needs to start moving her ankle and knee to avoid stiffness. Discussed the role for physical therapy to help this. We also discussed that, given her pain out of proportion to exam, her history of malignancy, and her history of intermittent swelling in the left lower leg, we should pursue a DVT scan to rule out DVT. Patient is agreeable to this plan. PLAN: 1. Medication: Continue current medications. 2. Test(s)/Imaging/Referral(s): DVT scan left lower leg 3. Intervention: Boot for comfort while walking, weightbearing as tolerated in the boot. Night splint to help prevent plantarflexion contracture 4. Follow-up: Following above. Anmol Davis MD documented in this encounter [facility] 12-31-2022 Note HNO ID: [id number] Author: Liliana Lim APRN.DIRECTOR OF MARKETING ANALYTICS Service: ? Author Type: Nurse Practitioner Type: Progress Notes Filed: 12/31/2022 2:47 PM Note Text: She came in with initial complaints of having difficulty pushing urine out. And an uncomfortable pain happening down in the vaginal area. Upon further assessment patient does have left-sided flank pain and significant upper mid abdominal pain. Upon palpation patient says it was like an 8 or 9. Patient also says when she tries to eat she can only eat 2 or 3 bites and feels extremely full and has only eaten about twice a day due to not being able to eat. Patient also says it feels like there is something in her throat and it is hard to swallow. Says she does cough a lot at night. At this time due to the abdominal pain patient is being sent to the emergency room for full evaluation. Patient was okay with this care plan. Did instruct patient that she should follow-up and possibly be tested for acid reflux. Patient was okay with this care plan. [facility] 12-31-2022 History of Present illness Narrative She came in with initial complaints of having difficulty pushing urine out. And an uncomfortable pain happening down in the vaginal area. Upon further assessment patient does have left-sided flank pain and significant upper mid abdominal pain. Upon palpation patient says it was like an 8 or 9. Patient also says when she tries to eat she can only eat 2 or 3 bites and feels extremely full and has only eaten about twice a day due to not being able to eat. Patient also says it feels like there is something in her throat and it is hard to swallow. Says she does cough a lot at night. At this time due to the abdominal pain patient is being sent to the emergency room for full evaluation. Patient was okay with this care plan. Did instruct patient that she should follow-up and possibly be tested for acid reflux. Patient was okay with this care plan. documented in this encounter [facility] 12-16-2022 Note Patient Outreach (UR OLMN) KAYA ARCE ([id number]) 1985 F FNS Date Time Provider Department 12/16/22 VIET TARIQ During your visit today, we recorded the following information about you: Allergies As of Date: 12/16/2022 Noted Allergy Reaction EUCALYPTUS 06/07/2007 4 - Hives 7 - Swelling 10 - Anaphylaxis 12 - Shortness of Breath 14 - Other: See Comments Comments: Tachycardia; laryngeal swelling HYDROCODONE 12/06/2018 9 - Itching KEFLEX (CEPHALEXIN) 05/09/2002 4 - Hives 10 - Anaphylaxis Comments: Tolerates amoxicillin TAMSULOSIN 05/19/2021 14 - Other: See Comments BEES 06/18/2010 4 - Hives 7 - Swelling CARDIZEM (DILTIAZEM HCL) 05/30/2018 5 - Intolerance Comments: Spikes BP CIPROFLOXACIN 05/17/2019 14 - Other: See Comments DOXYCYCLINE 09/26/2008 8 - GI Upset Comments: Not able to tolerate due to GI effects HYDROXYCHLOROQUINE 11/14/2022 8 - GI Upset LATEX 08/15/2008 7 - Swelling TIZANIDINE 12/04/2010 1 - Mental Status Change Comments: Low HR, cold and clammy (subjective only) Date Reviewed: 11/14/2022 Reviewed by: Adriane Rodriguez APRN.DIRECTOR OF MARKETING ANALYTICS - Fully Assessed Visit Diagnosis:Screening for genitourinary condition [Z13.89] Order(s):URINALYSIS, REFLEX MICROSCOPIC [BHB0617] Order #: [id number] Prescriptions as of 12/21/2022 - loratadine (CLARITIN) 10 mg tablet Take 1 tablet by mouth every afternoon. - sucralfate (CARAFATE) 100 mg/mL suspension 10 ML ORALLY 4 TIMES PER DAY 1 HOUR BEFORE MEALS AND AT BEDTIME ON AN EMPTY STOMACH - phenazopyridine (PYRIDIUM) 200 mg tablet Take 1 tablet by mouth three times daily as needed for pain. - famotidine (PEPCID) 40 mg tablet Take 1 tablet by mouth every afternoon. - nystatin (MYCOSTATIN) powder APPLY TO AFFECTED AREA TWICE DAILY. - tretinoin (RETIN-A) 0.05 % cream Apply pea-sized amount to entire face once nightly. Begin 3 times weekly and and gradually increase frequency to nightly as tolerated. - hydrocortisone (HYTONE,CETACORT) 1 % lotion Apply to affected area twice daily. - benzoyl peroxide (BENOXYL 10) 10 % lotn (Discontinued) Apply to affected area twice daily. - gabapentin (NEURONTIN) 300 mg capsule Take 1 capsule by mouth once daily for 60 days. - ibuprofen (MOTRIN) 600 mg tablet Take 1 tablet by mouth every 6 hours. Take with food. - oxyCODONE IR (ROXICODONE) 5 mg immediate release tablet Take 1 tablet by mouth every 8 hours as needed for pain. - Senna 8.6 mg tab Take 1 tablet by mouth twice daily. - acetaminophen (TYLENOL EXTRA STRENGTH) 500 mg tablet Take 2 tablets by mouth every 6 hours. - mesalamine (ROWASA) 4 gram/60 mL enema 4 g by RECTAL route daily at bedtime. - lidocaine (XYLOCAINE) 5 % ointment Apply to affected area as needed. - clascoterone 1 % crea Apply 1 application to affected area twice daily. - baclofen vaginal suppository 10 mg (CPD) Unwrap and inserty 1 Suppository vaginally once daily as directed. - EPINEPHrine (EPIPEN 2-SINCERE) 0.3 mg/0.3 mL auto-injector Inject 0.3 mL intramuscularly as needed (Inject in thigh as needed for anaphylaxis and call 911). GENERIC OKAY - BIOTIN ORAL Take by mouth once daily. - cyanocobalamin, vitamin B-12, (VITAMIN B-12 ORAL) Take by mouth. - clobetasol (TEMOVATE) 0.05 % ointment Apply to affected area twice daily as needed (for severe flares of the dermatitis on the hands and feet.). For flares on the hands - flurandrenolide (CORDRAN) 0.05 % lotion Apply to affected area twice daily. As needed. - ISOtretinoin (ACCUTANE) 20 mg capsule (Discontinued) Take 1 capsule by mouth once daily. - Clobetasol Propionate (CLOBEX) 0.05 % sham Apply to affected area once daily as needed (for scalp irritation). Apply to dry scalp, leave on for 15 minutes and then wash off. - pantoprazole DR (PROTONIX) 40 mg tablet Take 40 mg by mouth once daily. On hold currently d/t trying new med - ondansetron orally disintegrating (ZOFRAN ODT) 4 mg disintegrating tablet Take 1 tablet by mouth every 8 hours as needed. - atenolol (TENORMIN) 25 mg tablet TAKE 1/2-1 TAB BY MOUTH TWICE A DAY DIRECTED - albuterol HFA (PROVENTIL HFA, VENTOLIN HFA) 90 mcg/actuation inhaler Inhale 2 Puffs as instructed. - potassium chloride (KLOR-CON 10) 10 mEq tablet Take 2 tablets by mouth once daily. - docusate sodium (COLACE) 100 mg capsule Take 100 mg by mouth twice daily as needed. - cetirizine 10 mg tablet Take 1 tablet by mouth once daily. - MULTI-VITAMIN ORAL Take by mouth once daily. 2 tablets daily Problem List As Of Date 12/16/2022 Noted Resolved PAIN IN JOINT, LOWER LEG [M25.569] 12/11/2005 01/24/2008 Uncomplicated asthma [J45.909] 02/17/2006 CHRONIC RHINITIS [J31.0] 02/17/2006 Insulin resistance [E88.81] 02/17/2006 IBS (IRRITABLE BOWEL SYNDROME) [K58.9] 02/17/2006 ANAL FISSURE [K60.2] BENIGN NEOPLASM LG BOWEL [D12.6] RECTAL AND ANAL HEMORRHAGE (more content not included)... [facility] 12-16-2022 Note HNO ID: [id number] Author: Cindy Valles MD Service: ? Author Type: Physician Type: Progress Notes Filed: 12/16/2022 11:36 AM Note Text: Virtual Visit This visit was performed using audio and video CC: Obesity HPI: 37 year old FEMALE Visit was limited by pt being late for her appt Obesity I Wt: 185 lbs BMI: 32.77 kg/m2 Weight Hx: Began struggling with excess weight in the past 10 yrs. Has difficulty exercising 2/2 POTS/tachycardia. Completed PT because she wasn't able to exercise. Recent injury to a leg. Hx of ?crohn's and ?gastroparesis, leading to food intolerances. Pt follows with multiple docs at multiple institutions and we do not have access to several of the records. Lowest adult weight 110 lbs at age 18 Highest adult weight 190 lbs now FHx obesity: mom and dad Comorbidities: Migraines, fibromyalgia/chronic back pain (follows w [facility]), HTN, POTS, palpitations (follows w cardiology at [facility]), asthma, ALVERTO, IBS/?Crohn's/Gastroparesis, GERD, kidney stones/hematuria (follows w urology at [facility]), PCOS/acne, endometriosis/hx cervical dysplasia s/p hysterectomy , lyme dx, preDM, anxiety, ?gout, hepatic steatosis (not following w hepatology), ovarian ca s/p L salping oophorectomy 2014 (following w [facility] at ) Hx seizures no, HTN yes, CAD/PAD/CVA/Angina no, Hx Pancreatitis no, Glaucoma no, Kidney stones yes, Personal or FHx thyroid Ca or MEN no no, s/p hysterectomy Relevant labs: HBA1C, [place] 5.5 06/04/2020 Glucose 117 02/04/2022 Cholesterol, Total 223 02/04/2022 LDL Chol, [place] 105 06/04/2020 HDL Cholesterol 41 06/04/2020 Triglyceride 191 02/11/2021 Creatinine 0.61 02/04/2022 eGFR-All Other Races 118 02/04/2022 TSH 0.551 06/04/2020 ALT 34 02/11/2021 AST 34 02/11/2021 Current Anti-obesity meds: no Prior Anti-obesity meds: Phentermine- developed palpitations. Metformin was not tolerated 2/2 GI SEs Other relevant meds: atenolol (POTS/palpitations), famotidine prn, motrin once a week, claritin, rectal mesalamine (?crohns), zofran once a week, PPI, pyridium (dysuria), K, carafate (?for gastroparesis) Physical Activity: Minimal, endorses exercise intolerance. Diet: Not discussed Sleep: Not discussed Stress: Not discussed Social hx:Not discussed Rec Drugs: Not discussed Metabolic/bariatric surgery: Not discussed Behavioral interventions: none A/P Obesity I Discussed: - importance of healthful diet, pt has multiple dietary intolerances. -importance of regular exercise. Endorses exercise intoelrance (dizziness, palps). Unable to tolerate PT. 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 Significant limitation regarding medications- will avoid wellbutrin 2/2 palps, HAs, dizziness, difficult to treat HTN (2/2 concominant episodes of hypotension). This is, however, something I would consider in the future with clearance from cardiology. Did not tolerate phentermine or metformin. Unlikely to tolerate orlistat. GLP1RA not covered by insurance, further, likely to exacerbate gastroparesis and GI sx. Topiramate increases risk of kidney stones, a problem she already has. Referred to: - ENDOCRINOLOGY DIETITIAN VISIT (MNT) Labs ordered. Advised we will review results during follow up. Hepatic steatosis- recommended liver follow up with me and Dr Guerra in liver clinic Follow up with me in 2 month/s I spent a total of 50 minutes on the date of the service which included preparing to see the patient, [id number] patient care, completing clinical documentation, obtaining and/or reviewing separately obtained history, counseling and educating the patient/family/caregiver, ordering medications, tests, or procedures, and communicating results to the patient/family/caregiver. Cindy Valles MD, MPH Endocrinology and Metabolism [facility] 12-16-2022 Instructions Cindy Valles MD - 12/16/2022 11:14 AM EDT [phone], option #0 Elisa Messina MD ( AM) documented in this encounter [facility] 12-16-2022 History of Present illness Narrative Images from the original note were not included. Virtual Visit This visit was performed using audio and video CC: Obesity HPI: 37 year old FEMALE Visit was limited by pt being late for her appt Obesity I Wt: 185 lbs BMI: 32.77 kg/m2 Weight Hx: Began struggling with excess weight in the past 10 yrs. Has difficulty exercising 2/2 POTS/tachycardia. Completed PT because she wasn't able to exercise. Recent injury to a leg. Hx of ?crohn's and ?gastroparesis, leading to food intolerances. Pt follows with multiple docs at multiple institutions and we do not have access to several of the records. Lowest adult weight 110 lbs at age 18 Highest adult weight 190 lbs now FHx obesity: mom and dad Comorbidities: Migraines, fibromyalgia/chronic back pain (follows w [facility]), HTN, POTS, palpitations (follows w cardiology at [facility]), asthma, ALVERTO, IBS/?Crohn's/Gastroparesis, GERD, kidney stones/hematuria (follows w urology at [facility]), PCOS/acne, endometriosis/hx cervical dysplasia s/p hysterectomy , lyme dx, preDM, anxiety, ?gout, hepatic steatosis (not following w hepatology), ovarian ca s/p L salping oophorectomy 2014 (following w [facility] at ) Hx seizures no, HTN yes, CAD/PAD/CVA/Angina no, Hx Pancreatitis no, Glaucoma no, Kidney stones yes, Personal or FHx thyroid Ca or MEN no no, s/p hysterectomy Relevant labs: HBA1C, [place] 5.5 06/04/2020 Glucose 117 02/04/2022 Cholesterol, Total 223 02/04/2022 LDL Chol, [place] 105 06/04/2020 HDL Cholesterol 41 06/04/2020 Triglyceride 191 02/11/2021 Creatinine 0.61 02/04/2022 eGFR-All Other Races 118 02/04/2022 TSH 0.551 06/04/2020 ALT 34 02/11/2021 AST 34 02/11/2021 Current Anti-obesity meds: no Prior Anti-obesity meds: Phentermine- developed palpitations. Metformin was not tolerated 2/2 GI SEs Other relevant meds: atenolol (POTS/palpitations), famotidine prn, motrin once a week, claritin, rectal mesalamine (?crohns), zofran once a week, PPI, pyridium (dysuria), K, carafate (?for gastroparesis) Physical Activity: Minimal, endorses exercise intolerance. Diet: Not discussed Sleep: Not discussed Stress: Not discussed Social hx:Not discussed Rec Drugs: Not discussed Metabolic/bariatric surgery: Not discussed Behavioral interventions: none A/P Obesity I Discussed: - importance of healthful diet, pt has multiple dietary intolerances. -importance of regular exercise. Endorses exercise intoelrance (dizziness, palps). Unable to tolerate PT. 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 Significant limitation regarding medications- will avoid wellbutrin 2/2 palps, HAs, dizziness, difficult to treat HTN (2/2 concominant episodes of hypotension). This is, however, something I would consider in the future with clearance from cardiology. Did not tolerate phentermine or metformin. Unlikely to tolerate orlistat. GLP1RA not covered by insurance, further, likely to exacerbate gastroparesis and GI sx. Topiramate increases risk of kidney stones, a problem she already has. Referred to: - ENDOCRINOLOGY DIETITIAN VISIT (MNT) Labs ordered. Advised we will review results during follow up. Hepatic steatosis- recommended liver follow up with me and Dr Guerra in liver clinic Follow up with me in 2 month/s I spent a total of 50 minutes on the date of the service which included preparing to see the patient, [id number] patient care, completing clinical documentation, obtaining and/or reviewing separately obtained history, counseling and educating the patient/family/caregiver, ordering medications, tests, or procedures, and communicating results to the patient/family/caregiver. Cindy Valles MD, MPH Endocrinology and Metabolism documented in this encounter [facility] 12-15-2022 Note HNO ID: [id number] Author: Mark Thompson MD Service: ? Author Type: Physician Type: Progress Notes Filed: 12/15/2022 4:15 PM Note Text: NEUROSURGERY TELEPHONE VISIT PROGRESS NOTE Mark Thompson MD This is a telephone encounter initiated for an established patient, parent or guardian not originating from a related Evaluation AND Management service provided within the previous 7 days nor leading to an Evaluation AND Management service or procedure within the next 24 hours or soonest available appointment. Kaya Arce has consented to this telephone encounter. Persons Present: patient Chief Complaint: Neck stiffness, low back pain Chief Complaint/Reason: Neck stiffness, arm numbness, low back pain, left leg pain HPI: Ms. Arce returns for a video follow-up visit today. I was present in an examination room in a clean clinic facility and she was present at home. She consented to this visit being virtual. She is here to discuss her neck stiffness, bilateral arm numbness, low back pain, and left lower extremity pain. She went to several sessions of physical therapy since I last saw her; she feels that she is unable to complete the majority of the PT exercises due to her heart rate elevating during the exercises. She believes this is due to her POTS diagnosis. She was diagnosed with a left calf and Achilles strain a couple of days ago; this is made it difficult to walk. Otherwise her symptoms are about the same. She denies any obvious weakness, or bowel and bladder symptoms. She is interested in hearing about the neck steps in management. PREVIOUS CONSERVATIVE TREATMENTS: Physical therapy PREVIOUS SURGERY: None Current Outpatient Medications Medication Sig Dispense Refill loratadine (CLARITIN) 10 mg tablet Take 1 tablet by mouth every afternoon. sucralfate (CARAFATE) 100 mg/mL suspension 10 ML ORALLY 4 TIMES PER DAY 1 HOUR BEFORE MEALS AND AT BEDTIME ON AN EMPTY STOMACH phenazopyridine (PYRIDIUM) 200 mg tablet Take 1 tablet by mouth three times daily as needed for pain. 9 tablet 0 famotidine (PEPCID) 40 mg tablet Take 1 tablet by mouth every afternoon. nystatin (MYCOSTATIN) powder APPLY TO AFFECTED AREA TWICE DAILY. 60 g 1 tretinoin (RETIN-A) 0.05 % cream Apply pea-sized amount to entire face once nightly. Begin 3 times weekly and and gradually increase frequency to nightly as tolerated. 45 g 3 hydrocortisone (HYTONE,CETACORT) 1 % lotion Apply to affected area twice daily. 60 mL gabapentin (NEURONTIN) 300 mg capsule Take 1 capsule by mouth once daily for 60 days. 30 capsule 1 ibuprofen (MOTRIN) 600 mg tablet Take 1 tablet by mouth every 6 hours. Take with food. 60 tablet 0 oxyCODONE IR (ROXICODONE) 5 mg immediate release tablet Take 1 tablet by mouth every 8 hours as needed for pain. (Patient not taking: Reported on 04/07/2022) 10 tablet 0 Senna 8.6 mg tab Take 1 tablet by mouth twice daily. 60 tablet 0 acetaminophen (TYLENOL EXTRA STRENGTH) 500 mg tablet Take 2 tablets by mouth every 6 hours. 60 tablet 0 mesalamine (ROWASA) 4 gram/60 mL enema 4 g by RECTAL route daily at bedtime. lidocaine (XYLOCAINE) 5 % ointment Apply to affected area as needed. clascoterone 1 % crea Apply 1 application to affected area twice daily. 60 g 3 baclofen vaginal suppository 10 mg (CPD) Unwrap and inserty 1 Suppository vaginally once daily as directed. 30 Suppository 5 EPINEPHrine (EPIPEN 2-SINCERE) 0.3 mg/0.3 mL auto-injector Inject 0.3 mL intramuscularly as needed (Inject in thigh as needed for anaphylaxis and call 911). GENERIC OKAY 2 Each 3 BIOTIN ORAL Take by mouth once daily. cyanocobalamin, vitamin B-12, (VITAMIN B-12 ORAL) Take by mouth. clobetasol (TEMOVATE) 0.05 % ointment Apply to affected area twice daily as needed (for severe flares of the dermatitis on the hands and feet.). For flares on the hands 60 g 0 flurandrenolide (CORDRAN) 0.05 % lotion Apply to affected area twice daily. As needed. 120 mL 1 Clobetasol Propionate (CLOBEX) 0.05 % sham Apply to affected area once daily as needed (for scalp irritation). Apply to dry scalp, leave on for 15 minutes and then wash off. [address] (PROTONIX) 40 mg tablet Take 40 mg by mouth once daily. On hold currently d/t trying new med ondansetron orally disintegrating (ZOFRAN ODT) 4 mg disintegrating tablet Take 1 tablet by mouth every 8 hours as needed. 40 Each 1 atenolol (TENORMIN) 25 mg tablet TAKE 1/2-1 TAB BY MOUTH TWICE A DAY DIRECTED 0 albuterol HFA (PROVENTIL HFA, VENTOLIN HFA) 90 mcg/actuation inhaler Inhale 2 Puffs as instructed. potassium chloride (KLOR-CON 10) 10 mEq tablet Take 2 tablets by mouth once daily. (Patient taking differently: Take 20 mEq by mouth twice daily.) 60 tablet 11 docusate sodium (COLACE) 100 mg capsule Take 100 mg by mouth twice daily as needed. cetirizine 10 mg tablet Take 1 tablet by mouth once daily. 30 tablet 3 MULTI-VITAMIN ORAL Take by mo (more content not included)... [facility] 12-15-2022 History of Present illness Narrative NEUROSURGERY TELEPHONE VISIT PROGRESS NOTE Mark Thompson MD This is a telephone encounter initiated for an established patient, parent or guardian not originating from a related Evaluation & Management service provided within the previous 7 days nor leading to an Evaluation & Management service or procedure within the next 24 hours or soonest available appointment. Kaya Arce has consented to this telephone encounter. Persons Present: patient Chief Complaint: Neck stiffness, low back pain Chief Complaint/Reason: Neck stiffness, arm numbness, low back pain, left leg pain HPI: Ms. Arce returns for a video follow-up visit today. I was present in an examination room in a clean clinic facility and she was present at home. She consented to this visit being virtual. She is here to discuss her neck stiffness, bilateral arm numbness, low back pain, and left lower extremity pain. She went to several sessions of physical therapy since I last saw her; she feels that she is unable to complete the majority of the PT exercises due to her heart rate elevating during the exercises. She believes this is due to her POTS diagnosis. She was diagnosed with a left calf and Achilles strain a couple of days ago; this is made it difficult to walk. Otherwise her symptoms are about the same. She denies any obvious weakness, or bowel and bladder symptoms. She is interested in hearing about the neck steps in management. PREVIOUS CONSERVATIVE TREATMENTS: Physical therapy PREVIOUS SURGERY: None Current Outpatient Medications Medication Sig Dispense Refill loratadine (CLARITIN) 10 mg tablet Take 1 tablet by mouth every afternoon. sucralfate (CARAFATE) 100 mg/mL suspension 10 ML ORALLY 4 TIMES PER DAY 1 HOUR BEFORE MEALS AND AT BEDTIME ON AN EMPTY STOMACH phenazopyridine (PYRIDIUM) 200 mg tablet Take 1 tablet by mouth three times daily as needed for pain. 9 tablet 0 famotidine (PEPCID) 40 mg tablet Take 1 tablet by mouth every afternoon. nystatin (MYCOSTATIN) powder APPLY TO AFFECTED AREA TWICE DAILY. 60 g 1 tretinoin (RETIN-A) 0.05 % cream Apply pea-sized amount to entire face once nightly. Begin 3 times weekly and and gradually increase frequency to nightly as tolerated. 45 g 3 hydrocortisone (HYTONE,CETACORT) 1 % lotion Apply to affected area twice daily. 60 mL gabapentin (NEURONTIN) 300 mg capsule Take 1 capsule by mouth once daily for 60 days. 30 capsule 1 ibuprofen (MOTRIN) 600 mg tablet Take 1 tablet by mouth every 6 hours. Take with food. 60 tablet 0 oxyCODONE IR (ROXICODONE) 5 mg immediate release tablet Take 1 tablet by mouth every 8 hours as needed for pain. (Patient not taking: Reported on 04/07/2022) 10 tablet 0 Senna 8.6 mg tab Take 1 tablet by mouth twice daily. 60 tablet 0 acetaminophen (TYLENOL EXTRA STRENGTH) 500 mg tablet Take 2 tablets by mouth every 6 hours. 60 tablet 0 mesalamine (ROWASA) 4 gram/60 mL enema 4 g by RECTAL route daily at bedtime. lidocaine (XYLOCAINE) 5 % ointment Apply to affected area as needed. clascoterone 1 % crea Apply 1 application to affected area twice daily. 60 g 3 baclofen vaginal suppository 10 mg (CPD) Unwrap and inserty 1 Suppository vaginally once daily as directed. 30 Suppository 5 EPINEPHrine (EPIPEN 2-SINCERE) 0.3 mg/0.3 mL auto-injector Inject 0.3 mL intramuscularly as needed (Inject in thigh as needed for anaphylaxis and call 911). GENERIC OKAY 2 Each 3 BIOTIN ORAL Take by mouth once daily. cyanocobalamin, vitamin B-12, (VITAMIN B-12 ORAL) Take by mouth. clobetasol (TEMOVATE) 0.05 % ointment Apply to affected area twice daily as needed (for severe flares of the dermatitis on the hands and feet.). For flares on the hands 60 g 0 flurandrenolide (CORDRAN) 0.05 % lotion Apply to affected area twice daily. As needed. 120 mL 1 Clobetasol Propionate (CLOBEX) 0.05 % sham Apply to affected area once daily as needed (for scalp irritation). Apply to dry scalp, leave on for 15 minutes and then wash off. [address] (PROTONIX) 40 mg tablet Take 40 mg by mouth once daily. On hold currently d/t trying new med ondansetron orally disintegrating (ZOFRAN ODT) 4 mg disintegrating tablet Take 1 tablet by mouth every 8 hours as needed. 40 Each 1 atenolol (TENORMIN) 25 mg tablet TAKE 1/2-1 TAB BY MOUTH TWICE A DAY DIRECTED 0 albuterol HFA (PROVENTIL HFA, VENTOLIN HFA) 90 mcg/actuation inhaler Inhale 2 Puffs as instructed. potassium chloride (KLOR-CON 10) 10 mEq tablet Take 2 tablets by mouth once daily. (Patient taking differently: Take 20 mEq by mouth twice daily.) 60 tablet 11 docusate sodium (COLACE) 100 mg capsule Take 100 mg by mouth twice daily as needed. cetirizine 10 mg tablet Take 1 tablet by mouth once daily. 30 tablet 3 MULTI-VITAMIN ORAL Take by mouth once daily. 2 tablets daily No current facility-administered medications for this visit. Data Reviewed: Most recent imaging Assessment/Plan: Ms. Arce is a 37-year-old woman with a history of fibromyalgia, Crohn's disease, ankylosing spondylitis, lupus, POTS, PCOS who presents with chronic neck stiffness and low back pain. She also has bilateral intermittent arm numbness and left lower extremity pain. She tried physical therapy but was unable to tolerate the exercises due to an elevated heart rate. She has not had an MRI of her neck or lumbar spine yet; I will order these today. Once these are complete I will follow-up with her and discuss the neck steps. Total Time Spent: 21-30 minutes Attestation: The following portions of the patient's history were reviewed, confirmed, and updated as necessary: allergies, current medications, past family history, past medical history, past social history, past surgical history, problem list, HPI, and ROS obtained by others. Some elements may be copied from a previous office note and have been reviewed/updated where appropriate. All portions reflect current medical decision making from today. The clinical and radiographic findings as well as the risks, benefits and alternatives of treatment have been reviewed in detail with the patient. Advised to call the office if symptoms worsen or new symptoms develop. Patient expressed understanding and is in agreement with plan. Mark Thompson MD [facility] Decision Making: Problems: Moderate: 1+ chronic illnesses with change Data: Unique source(s) for external note(s) reviewed: 1 Unique test result(s) reviewed: 1 Unique test(s) ordered: 2 Risk: Moderate: Moderate risk from testing/treatment Medical Decision Making Level: 4 - Moderate documented in this encounter [facility] 12-11-2022 Hospital Discharge instructions Patient Education 12/11/2022 17:12:23 AA Camilla MAC(CUSTOM) Suspected gastrocnemius/soleus muscle tear. Achilles tendon will need further evaluation. Follow Up Care 12/11/2022 15:34:37 With:ADARSH MCDERMOTT MD Address: [address] [place] [address] [address] [place] [address]- [phone] When:2-4 days With:Go to emergency room if symptoms worsen Address:Unknown When:2-4 days [facility] 12-11-2022 Note Discharge Instructions Thank you for allowing [facility] to assist you with your healthcare needs. The following is important discharge information regarding your hospital visit. Diagnosis from Today's Visit Lower leg pain-swelling Torn gastrocnemius What to Do Next Instructions from Your Care Team Ice bag to calf area. Elevation. Crutches to ambulate. No qualifying data available. Post Acute Orders No qualifying data available. You Need to Schedule the Following Appointments Follow Up with ADARSH MCDERMOTT MD When Within 2-4 days Where: [address] [place] [address] [facility] [address] [place] [address]- [phone] Follow Up with Go to emergency room if symptoms worsen When Within 2-4 days Allergies Keflex Latex doxycycline tetracycline Medications Please ask your primary doctor or pharmacist before taking any other medication not listed, including over the counter drugs, herbal medications, vitamins and or supplements as they may interact with your home medications. What How Much When Why Instructions Last Dose Changed acetaminophen-hydrocodone (Monroe 325- 5 mg oral tablet) 1 tab(s) by mouth Every 4 hours as needed for for pain Torn gastrocnemius Duration: 3 Days Printed Prescription Changed acetaminophen-HYDROcodone (Monroe 325- 5 mg oral tablet) 1 tab(s) by mouth Every 6 hours as needed for as needed for pain Unchanged acyclovir (Zovirax 800 mg oral tablet) 1 tab(s) by mouth 5 times a day Duration: 7 Days Unchanged atenolol (atenolol 25 mg oral tablet) Unchanged azithromycin (azithromycin 250 mg oral tablet) Unchanged baclofen (baclofen 10 mg oral tablet) Unchanged cholecalciferol (Vitamin D3) 2,000 unit(s) by mouth Every day Unchanged codeine-guaifenesin (codeine-guaifenesin 10 mg-100 mg/ 5 mL oral syrup) Unchanged dexamethasone (dexamethasone 6 mg oral tablet) Unchanged hyoscyamine (Levsin 0.125 mg oral tablet) 2 tab(s) by mouth Four (4) times a day Duration: 7 Days Unchanged lidocaine topical (lidocaine 2% topical gel with applicator) Unchanged omeprazole 40 Milligram by mouth Once a day Unchanged ondansetron (ondansetron 4 mg oral tablet, disintegrating) Unchanged pantoprazole (pantoprazole 40 mg oral enteric coated tablet) Unchanged potassium chloride (Klor-Con M20) 40 Milliequivalent by mouth Once Unchanged SUMAtriptan (SUMAtriptan 50 mg oral tablet) Unchanged tamsulosin (Flomax 0.4 mg oral capsule) 1 cap by mouth Once a day Duration: 7 Days Please take this list to your next doctor s visit. Bring all medications you take, including over the counter medications, herbals and other supplements with you to your doctor s visit. Patients and families are reminded to discard old lists and to update any records with all medication providers or retail pharmacies. Medication Leaflets acetaminophen and hydrocodone (a SEET a MIN oh fen and cheryle droe KOE done) Lortab Elixir, Verdrocet What is the most important information I should know about acetaminophen and hydrocodone? MISUSE OF OPIOID MEDICINE CAN CAUSE ADDICTION, OVERDOSE, OR . Keep the medication in a place where others cannot get to it. Taking opioid medicine during may cause life-threatening withdrawal symptoms in the . Fatal side effects can occur if you use opioid medicine with alcohol, or with other drugs that cause drowsiness or slow your breathing. Stop taking this medicine and call your doctor right away if you have skin redness or a rash that spreads and causes blistering and peeling. What is acetaminophen and hydrocodone? Acetaminophen and hydrocodone is a combination medicine used to relieve moderate to severe pain. Acetaminophen and hydrocodone contains an opioid medicine, and may be habit-forming. Acetaminophen and hydrocodone may also be used for purposes not listed in this medication guide. What should I discuss with my healthcare provider before taking acetaminophen and hydrocodone? You should not use this medicine if you are allergic to acetaminophen or hydrocodone, or if you have: severe asthma or breathing problems; or a blockage in your stomach or intestines. Tell your doctor if you have ever had: breathing problems, sleep apnea (breathing stops during sleep); liver disease; a drug or alcohol addiction; kidney disease; a head injury or seizures; urination problems; or problems with your thyroid, pancreas, or gallbladder. If you use opioid medicine while you are , your baby could become dependent on the drug. This can cause life-threatening withdrawal symptoms in the baby after it is born. Babies born dependent on opioids may need medical treatment for several weeks. Ask a doctor before using opioid medicine if you are . Tell your doctor if you notice severe drowsiness or slow breathing in the nursing baby. How should I take acetaminophen and hydrocodone? Follow all directions on your prescription label. Never take this medicine in larger amounts, or for longer than prescribed. An overdose can damage your liver or cause . Tell your doctor if you feel an increased urge to use more of this medicine. Never share this medicine with another person, especially someone with a history of drug abuse or addiction. MISUSE CAN CAUSE ADDICTION, OVERDOSE, OR . Keep the medicine in a place where others cannot get to it. Selling or giving away this medicine is against the law. Measure liquid medicine carefully. Use the dosing syringe provided, or use a medicine dose-measuring device (not a kitchen spoon). If you need surgery or medical tests, tell the doctor ahead of time that you are using this medicine. You should not stop using this medicine suddenly. Follow your doctor's instructions about tapering your dose. Store at room temperature away from moisture and heat. Keep track of your medicine. You should be aware if anyone is using it improperly or without a prescription. Do not keep leftover opioid medication. Just one dose can cause in someone using this medicine accidentally or improperly. Ask your pharmacist where to locate a drug take-back disposal program. If there is no take-back program, flush the unused medicine down the toilet. What happens if I miss a dose? Since this medicine is used for pain, you are not likely to miss a dose. Skip any missed dose if it is almost time for your next dose. Do not use two doses at one time. What happens if I overdose? Seek emergency medical attention or call the Poison Help line at . An overdose of this medicine can be fatal, especially in a child or other person using the medicine without a prescription. Overdose symptoms may include nausea, vomiting, sweating, severe drowsiness, pinpoint pupils, slow breathing, or no breathing. Your doctor may recommend you get naloxone (a medicine to reverse an opioid overdose) and keep it with you at all times. A person caring for you can give the naloxone if you stop breathing or don't wake up. Your caregiver must still get emergency medical help and may need to perform CPR (cardiopulmonary resuscitation) on you while waiting for help to arrive. Anyone can buy naloxone from a pharmacy or local health department. Make sure any person caring for you knows where you keep naloxone and how to use it. What should I avoid while taking acetaminophen and hydrocodone? Avoid driving or operating machinery until you know how this medicine will affect you. Dizziness or drowsiness can cause falls, accidents, or severe injuries. Do not drink alcohol. Dangerous side effects or could occur. Ask a doctor or pharmacist before using any other medicine that may contain acetaminophen (sometimes abbreviated as APAP). Taking certain medications together can lead to a fatal overdose. What are the possible side effects of acetaminophen and hydrocodone? Get emergency medical help if you have signs of an allergic reaction: hives; difficulty breathing; swelling of your face, lips, tongue, or throat. Opioid medicine can slow or stop your breathing, and may occur. A person caring for you should give naloxone and/or seek emergency medical attention if you have slow breathing with long pauses, blue colored lips, or if you are hard to wake up. In rare cases, acetaminophen may cause a severe skin reaction that can be fatal. This could occur even if you have taken acetaminophen in the past and had no reaction. Stop taking this medicine and call your doctor right away if you have skin redness or a rash that spreads and causes blistering and peeling. Call your doctor at once if you have: noisy breathing, sighing, shallow breathing, breathing that stops; a light-headed feeling, like you might pass out; liver problems--nausea, upper stomach pain, tiredness, loss of appetite, dark urine, juana-colored stools, jaundice (yellowing of the skin or eyes); low cortisol levels-- nausea, vomiting, loss of appetite, dizziness, worsening tiredness or weakness; o high levels of serotonin in the body--agitation, hallucinations, fever, sweating, shivering, fast heart rate, muscle stiffness, twitching, loss of coordination, nausea, vomiting, diarrhea. Serious breathing problems may be more likely in older adults and in those who are debilitated or have wasting syndrome or chronic breathing disorders. Common side effects include: dizziness, drowsiness, feeling tired; nausea, vomiting, stomach pain; constipation; or headache. This is not a complete list of side effects and others may occur. Call your doctor for medical advice about side effects. You may report side effects to FDA at 3-635-JUZ-4988. What other drugs will affect acetaminophen and hydrocodone? You may have breathing problems or withdrawal symptoms if you start or stop taking certain other medicines. Tell your doctor if you also use an antibiotic, antifungal medication, heart or blood pressure medication, seizure medication, or medicine to treat HIV or hepatitis C. Opioid medication can interact with many other drugs and cause dangerous side effects or . Be sure your doctor knows if you also use: cold or allergy medicines, bronchodilator asthma/COPD medication, or a diuretic ('water pill'); medicines for motion sickness, irritable bowel syndrome, or overactive bladder; other opioids--opioid pain medicine or prescription cough medicine; a sedative like Valium--diazepam, alprazolam, lorazepam, Xanax, Klonopin, Versed, and others; drugs that make you sleepy or slow your breathing--a sleeping pill, muscle relaxer, medicine to treat mood disorders or mental illness; drugs that affect serotonin levels in your body--a stimulant, or medicine for depression, Parkinson's disease, migraine headaches, serious infections, or nausea and vomiting. This list is not complete. Other drugs may affect acetaminophen and hydrocodone, including prescription and [id number]-vrceczq medicines, vitamins, and herbal products. Not all possible interactions are listed here. Where can I get more information? Your doctor or pharmacist can provide more information about acetaminophen and hydrocodone. Remember, keep this and all other medicines out of the reach of children, never share your medicines with others, and use this medication only for the indication prescribed. Every effort has been made to ensure that the information provided by [employer]. ('[employer]') is accurate, up-to-date, and complete, but no guarantee is made to that effect. Drug information contained herein may be time sensitive. to be information has been compiled for use by healthcare practitioners and consumers in the [place] and therefore to be does not warrant that uses outside of the [place] are appropriate, unless specifically indicated otherwise. [employer] drug information does not endorse drugs, diagnose patients or recommend therapy. [employer] drug information is an informational resource designed to assist licensed healthcare practitioners in caring for their patients and/or to serve consumers viewing this service as a supplement to, and not a substitute for, the expertise, skill, knowledge and judgment of healthcare practitioners. The absence of a warning for a given drug or drug combination in no way should be construed to indicate that the drug or drug combination is safe, effective or appropriate for any given patient. to be does not assume any responsibility for any aspect of healthcare administered with the aid of information to be provides. The information contained herein is not intended to cover all possible uses, directions, precautions, warnings, drug interactions, allergic reactions, or adverse effects. If you have questions about the drugs you are taking, check with your doctor, nurse or pharmacist. Copyright 9928-2024 [employer]. Version: 19.. Revision Date: 11/16/2022. Education Materials Suspected gastrocnemius/soleus muscle tear. Achilles tendon will need further evaluation. Additional Information VACCINATE! IT SAVES LIVES! Members of the community who have not yet received the COVID-19 vaccine and would like to receive it can visit one of [facility] vaccine clinics. There are many vaccine clinic locations within the [facility]. For locations and available times, please visit www.gettheshot.coronavirus.[place].gov /. It is important to note that some COVID mobile vaccine clinics are held outdoors and may be canceled in rainy or stormy conditions. To learn more about pediatric vaccinations (ages 5-11), we invite you to visit the [facility] webpage. [email or web address].[facility].org/page [email or web address]-Diown-Wmcligknclg-Frequently -Asked-Questions.html To learn more about the COVID-19 vaccine, we invite you to visit the CDC website for a list of frequently asked questions. https://www.cdc.gov/coronavirus/201 9-ncov/vaccines/faq.html [facility] Patient Portal Access Instructions: Stay connected with your healthcare team and access your personal medical information anytime with the [facility] Patient Portal. If you would like a full copy of your medical records please contact the [facility] Medical Records Department Wednesday through Wednesday between 8a.m. and 4:30p.m. Please follow the directions below to access the portal: 1.Access the email account you provided upon registration to the hospital.2.Look for an invitation email from [facility].3.Open the email and access the invitation link: Accept Invitation to [facility].Fill in the required carias to create your account. Sign into www.[email or web address] with your username and password that you created in the above steps to stay up to date. You can then view a summary of results, a summary of your visits, and the ability to download your summaries to your computer or send the information securely to a physician. Remember that your healthcare information is confidential, so carefully consider who you will allow to register on the [facility] Patient Portal for access to your information. You can also access the [facility] Patient Portal on the [employer]abor. Simply click on Health Records under Health Data and then click on the [employer] logo. HOW TO SAFELY DISPOSE OF PRESCRIPTION MEDICATIONS Please use one of the following methods to safely dispose of your unused medications. 1.Use a drug disposal kit: the drug disposal pouch allows you to safely discard your old and unused drugs. Ask your nurse to give you one when you are discharged.2.Visit a local take-back location: Many local pharmacies and police departments have programs that collect old and unwanted prescription drugs. Call your local pharmacy or go to http://[employer]/5J7Cy9n to find one close to you.3.Make use of household items: Use cat litter or old coffee grounds to dispose medications if other options are not available. Mix your drugs with these household products, seal them in an airtight container and throw it into the garbage. Call [facility]: [phone] to be sure your drugs can be disposed of in this way. Some medicines may require a different approach.4.Never flush your medications down the toilet. IF YOU HAVE BEEN PRESCRIBED AN OPIOIDS FOR PAIN If you have been prescribed an opioid (such as hydrocodone, oxycodone or morphine), it is critical to understand the possible side effects and risks of opioid pain medications. Even when taken as directed, opioids can have several side effects including: Tolerance, meaning you might need to take more of a medication for the same pain relief. Nausea, vomiting and/or constipation. Sleepiness, dizziness, dry mouth, confusion, depression or itching. Physical dependence, meaning you have withdrawal symptoms when a medication is stopped ? this can develop within a few days. KNOW YOUR RESPONSIBILITIES It is important to know exactly how much and how often to take the opioid pain medications you are prescribed. Never take opioids in higher amounts or more often than prescribed. Do not combine opioids with alcohol or other drugs that cause drowsiness, such as benzodiazepines, also known as benzos, including diazepam and alprazolam, muscle relaxants or sleep aids. Never sell or share prescription opioids. This is illegal. Store opioids in a secure place and out of reach of others (including children, family, friends and visitors). The last page(s) of this document has been signed and retained as a CHART COPY Signatures Patient Education Materials AA Blank DI(CUSTOM) Medication Leaflets acetaminophen and hydrocodone My discharge plan and instructions have been reviewed and explained to me and ICLAUDE ASHLEY O understand my current condition and have read and understand these discharge instructions. I have received a written copy of the plan/instructions. If I have questions, I am aware that I should contact my doctor. 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 HISTORY: ORDERING SYSTEM PROVIDED HISTORY: Reason for Exam: pain FINDINGS: No acute fracture or dislocation. The ankle mortise and talar dome appear maintained. The joint spaces appear grossly preserved. No significant suprapatellar or tibiotalar effusion. No radiopaque foreign body. IMPRESSION: No acute fracture or dislocation. I have personally reviewed the images of this examination and agree with the resident's findings and interpretation. Interpreted by: Shahzad Horne Preliminary Report By: Nicole Park Electronically signed By Shahzad Horne Dictated Date: 12/11/2022 4:13:55 PM Prelim Date: 12/11/2022 4:16:34 PM Sign Date: 12/11/2022 4:28:40 PM Ordering Provider: POLO PERRY [facility] 12-11-2022 Note ORIGINAL EXAMINATION: THREE XRAY VIEWS OF THE LEFT ANKLE; TWO XRAY VIEWS OF THE LEFT TIBIA/FIBULA 12/11/2022 4:08 pm COMPARISON: None. HISTORY: ORDERING SYSTEM PROVIDED HISTORY: Reason for Exam: pain FINDINGS: No acute fracture or dislocation. The ankle mortise and talar dome appear maintained. The joint spaces appear grossly preserved. No significant suprapatellar or tibiotalar effusion. No radiopaque foreign body. IMPRESSION: No acute fracture or dislocation. I have personally reviewed the images of this examination and agree with the resident's findings and interpretation. Interpreted by: Shahzad Horne Preliminary Report By: Nicole Park Electronically signed By Shahzad Horne Dictated Date: 12/11/2022 4:13:55 PM Prelim Date: 12/11/2022 4:16:34 PM Sign Date: 12/11/2022 4:28:40 PM [facility] Miscellaneous Notes Patient scheduled for in person visit with Dr Thompson. Dr Thompson said to follow up virtually. I left a message for the patient asking to call me back if she would like to change appointment to virtual. documented in this encounter [facility] 12-01-2022 Hospital Discharge instructions Patient Education 12/01/2022 16:15:14 Identifying Kidney Stones Identifying Kidney Stones Your kidneys filter your blood and release chemicals into the urine. If certain chemicals build up in the kidneys, they can form a stone. There are 4 general types of kidney stones. Your kidney stone s size and shape determine whether it is likely to pass by itself. Knowing what a stone is made of (its composition) helps your healthcare provider find its cause. Then he or she can suggest the best treatment. X-rays or scans can help show the stone's size and shape. Your healthcare provider may also give you a strainer. You can use this to catch the stone while passing urine, and the provider can then test the stone. Other urine and blood tests may be done to help identify the stone. These tests can also help identify causes for different types of stones. Size A stone may be as small as a grain of sand. Or it may be as large as a golf ball. Small stones may pass out of your body when you urinate. Shape Small, smooth, round stones may pass easily. Jagged-edged stones often lodge inside the kidney or ureter. Staghorn stones can fill the entire renal pelvis and calyces. Composition Most stones are made of calcium oxalate, a hard compound. Stones made of cystine or uric acid, or caused by infection (struvite stones), are less dense. Stones often contain more than one chemical. Treating your stones You and your healthcare provider will work together to form a treatment plan. Your provider may suggest that you let your stone pass naturally. Or you may manage it with medicines. Certain procedures may also help, such as SWL (shock wave lithotripsy) or using a camera inside the body to remove the stone (ureteroscopy). And you will be told how you can help prevent kidney stones in the future. The [employer]. [address] [place] [address]. All rights reserved. This information is not intended as a substitute for professional medical care. Always follow your healthcare professional's instructions. 12/01/2022 16:15:10 How Your Kidneys Work How Your Kidneys Work The kidneys main job is to clean the blood. They filter wastes and excess fluids from your blood each day. This helps maintain the chemical balance the body needs to stay healthy and alive. One working kidney, even part of a kidney, is enough to do this job. If both kidneys fail, their work must then be done another way. Kidneys filter the blood Your kidneys are located just above your waist and below your rib cage toward your back. They are reis-shaped and the size of your fist. They filter blood through filtering units called nephrons. There are about 1 million nephrons per kidney. The nephrons do the following: Remove waste and fluid. The kidneys take waste products, such as urea, from the blood. They also remove unneeded fluid. Balance chemicals. The body needs chemicals (such as calcium, sodium, potassium, and phosphorus) to work. Too little or too much of them can make you sick. In the kidneys, chemicals are taken from or added to the blood to keep them in the right balance. The kidneys other tasks In addition to filtering the blood, the kidneys do other tasks. These include: Making erythropoetin (EPO) to tell the bone marrow to make red blood cells (erythrocytes). These are the cells in the blood that carry oxygen. Helping control blood pressure by making and releasing the enzyme renin. Helping keep bones strong by making a form of vitamin D called calcitriol. The kidneys may be damaged by a number of conditions, including diabetes, high blood pressure, smoking, inherited conditions, immune disorders, injury, and certain medicines. The [employer]. [address] [place] [address]. All rights reserved. This information is not intended as a substitute for professional medical care. Always follow your healthcare professional's instructions. Follow Up Care 12/01/2022 13:54:25 With:RUDY BRANCH Address: [place] [address] Business (1) When:2-[address] [facility] Cindy 12-01-2022 Note Discharge Instructions Thank you for allowing [facility] to assist you with your healthcare needs. The following is important discharge information regarding your hospital visit. Diagnosis from Today's Visit Bilateral nephrolithiasis Flank pain What to Do Next Instructions from Your Care Team No qualifying data available. Post Acute Orders No qualifying data available. You Need to Schedule the Following Appointments Follow Up with RUDY JOSE CARLOS When Within 2-4 days Where: [place] [address] Business (1) Allergies Keflex Latex doxycycline tetracycline Medications Please ask your primary doctor or pharmacist before taking any other medication not listed, including over the counter drugs, herbal medications, vitamins and or supplements as they may interact with your home medications. What How Much When Instructions Last Dose Unchanged acetaminophen-HYDROcodone (Monroe 325- 5 mg oral tablet) 1 tab(s) by mouth Every 6 hours as needed for as needed for pain Unchanged acyclovir (Zovirax 800 mg oral tablet) 1 tab(s) by mouth 5 times a day Duration: 7 Days Unchanged atenolol (atenolol 25 mg oral tablet) Unchanged azithromycin (azithromycin 250 mg oral tablet) Unchanged baclofen (baclofen 10 mg oral tablet) Unchanged cholecalciferol (Vitamin D3) 2,000 unit(s) by mouth Every day Unchanged codeine-guaifenesin (codeine-guaifenesin 10 mg-100 mg/ 5 mL oral syrup) Unchanged dexamethasone (dexamethasone 6 mg oral tablet) Unchanged hyoscyamine (Levsin 0.125 mg oral tablet) 2 tab(s) by mouth Four (4) times a day Duration: 7 Days Unchanged lidocaine topical (lidocaine 2% topical gel with applicator) Unchanged omeprazole 40 Milligram by mouth Once a day Unchanged ondansetron (ondansetron 4 mg oral tablet, disintegrating) Unchanged pantoprazole (pantoprazole 40 mg oral enteric coated tablet) Unchanged potassium chloride (Klor-Con M20) 40 Milliequivalent by mouth Once Unchanged SUMAtriptan (SUMAtriptan 50 mg oral tablet) Unchanged tamsulosin (Flomax 0.4 mg oral capsule) 1 cap by mouth Once a day Duration: 7 Days Please take this list to your next doctor s visit. Bring all medications you take, including over the counter medications, herbals and other supplements with you to your doctor s visit. Patients and families are reminded to discard old lists and to update any records with all medication providers or retail pharmacies. Education Materials Identifying Kidney Stones Your kidneys filter your blood and release chemicals into the urine. If certain chemicals build up in the kidneys, they can form a stone. There are 4 general types of kidney stones. Your kidney stone s size and shape determine whether it is likely to pass by itself. Knowing what a stone is made of (its composition) helps your healthcare provider find its cause. Then he or she can suggest the best treatment. X-rays or scans can help show the stone's size and shape. Your healthcare provider may also give you a strainer. You can use this to catch the stone while passing urine, and the provider can then test the stone. Other urine and blood tests may be done to help identify the stone. These tests can also help identify causes for different types of stones. Size A stone may be as small as a grain of sand. Or it may be as large as a golf ball. Small stones may pass out of your body when you urinate. Shape Small, smooth, round stones may pass easily. Jagged-edged stones often lodge inside the kidney or ureter. Staghorn stones can fill the entire renal pelvis and calyces. Composition Most stones are made of calcium oxalate, a hard compound. Stones made of cystine or uric acid, or caused by infection (struvite stones), are less dense. Stones often contain more than one chemical. Treating your stones You and your healthcare provider will work together to form a treatment plan. Your provider may suggest that you let your stone pass naturally. Or you may manage it with medicines. Certain procedures may also help, such as SWL (shock wave lithotripsy) or using a camera inside the body to remove the stone (ureteroscopy). And you will be told how you can help prevent kidney stones in the future. 9917-5547 The [employer]. [address] [place] [address]. All rights reserved. This information is not intended as a substitute for professional medical care. Always follow your healthcare professional's instructions. How Your Kidneys Work The kidneys main job is to clean the blood. They filter wastes and excess fluids from your blood each day. This helps maintain the chemical balance the body needs to stay healthy and alive. One working kidney, even part of a kidney, is enough to do this job. If both kidneys fail, their work must then be done another way. Kidneys filter the blood Your kidneys are located just above your waist and below your rib cage toward your back. They are reis-shaped and the size of your fist. They filter blood through filtering units called nephrons. There are about 1 million nephrons per kidney. The nephrons do the following: Remove waste and fluid. The kidneys take waste products, such as urea, from the blood. They also remove unneeded fluid. Balance chemicals. The body needs chemicals (such as calcium, sodium, potassium, and phosphorus) to work. Too little or too much of them can make you sick. In the kidneys, chemicals are taken from or added to the blood to keep them in the right balance. The kidneys other tasks In addition to filtering the blood, the kidneys do other tasks. These include: Making erythropoetin (EPO) to tell the bone marrow to make red blood cells (erythrocytes). These are the cells in the blood that carry oxygen. Helping control blood pressure by making and releasing the enzyme renin. Helping keep bones strong by making a form of vitamin D called calcitriol. The kidneys may be damaged by a number of conditions, including diabetes, high blood pressure, smoking, inherited conditions, immune disorders, injury, and certain medicines. [id number] [employer] [place] [address]. All rights reserved. This information is not intended as a substitute for professional medical care. Always follow your healthcare professional's instructions. Additional Information VACCINATE! IT SAVES LIVES! Members of the community who have not yet received the COVID-19 vaccine and would like to receive it can visit one of [facility] vaccine clinics. There are many vaccine clinic locations within the [facility]. For locations and available times, please visit www.gettheshot.coronavirus.[place].gov /. It is important to note that some COVID mobile vaccine clinics are held outdoors and may be canceled in rainy or stormy conditions. To learn more about pediatric vaccinations (ages 5-11), we invite you to visit the [facility] webpage. [email or web address].[email or web address].org/page [email or web address]-Mjqve-Mipqzqbikxz-Frequently -[email or web address]-Questions.html To learn more about the COVID-19 vaccine, we invite you to visit the CDC website for a list of frequently asked questions. https://www.cdc.gov/coronavirus/201 9-ncov/vaccines/faq.html [facility] Patient Portal Access Instructions: Stay connected with your healthcare team and access your personal medical information anytime with the [facility] Patient Portal. If you would like a full copy of your medical records please contact the [facility] Medical Records Department Wednesday through Wednesday between 8a.m. and 4:30p.m. Please follow the directions below to access the portal: 1.Access the email account you provided upon registration to the [facility].2.Look for an invitation email from [facility].3.Open the email and access the invitation link: Accept Invitation to [facility]4.Fill in the required carias to create your account. Sign into www.[employer] with your username and password that you created in the above steps to stay up to date. You can then view a summary of results, a summary of your visits, and the ability to download your summaries to your computer or send the information securely to a physician. Remember that your healthcare information is confidential, so carefully consider who you will allow to register on the [facility] Patient Portal for access to your information. You can also access the [facility] Patient Portal on the [employer]. Simply click on Health Records under Health Data and then click on the Na logo. HOW TO SAFELY DISPOSE OF PRESCRIPTION MEDICATIONS Please use one of the following methods to safely dispose of your unused medications. 1.Use a drug disposal kit: the drug disposal pouch allows you to safely discard your old and unused drugs. Ask your nurse to give you one when you are discharged.2.Visit a local take-back location: Many local pharmacies and police departments have programs that collect old and unwanted prescription drugs. Call your local pharmacy or go to http://bit.[employer]/0Y8Rv3h to find one close to you.3.Make use of household items: Use cat litter or old coffee grounds to dispose medications if other options are not available. Mix your drugs with these household products, seal them in an airtight container and throw it into the garbage. Call [facility]: [phone] to be sure your drugs can be disposed of in this way. Some medicines may require a different approach.4.Never flush your medications down the toilet. IF YOU HAVE BEEN PRESCRIBED AN OPIOIDS FOR PAIN If you have been prescribed an opioid (such as hydrocodone, oxycodone or morphine), it is critical to understand the possible side effects and risks of opioid pain medications. Even when taken as directed, opioids can have several side effects including: Tolerance, meaning you might need to take more of a medication for the same pain relief. Nausea, vomiting and/or constipation. Sleepiness, dizziness, dry mouth, confusion, depression or itching. Physical dependence, meaning you have withdrawal symptoms when a medication is stopped ? this can develop within a few days. KNOW YOUR RESPONSIBILITIES It is important to know exactly how much and how often to take the opioid pain medications you are prescribed. Never take opioids in higher amounts or more often than prescribed. Do not combine opioids with alcohol or other drugs that cause drowsiness, such as benzodiazepines, also known as benzos, including diazepam and alprazolam, muscle relaxants or sleep aids. Never sell or share prescription opioids. This is illegal. Store opioids in a secure place and out of reach of others (including children, family, friends and visitors). The last page(s) of this document has been signed and retained as a CHART COPY Signatures Patient Education Materials Identifying Kidney Stones How Your Kidneys Work Medication Leaflets My discharge plan and instructions have been reviewed and explained to me and ICLAUDE ASHLEY O understand my current condition and have read and understand these discharge instructions. I have received a written copy of the plan/instructions. If I have questions, I am aware that I should contact my doctor. 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 Multiplanar reformatted images are provided for review. Automated exposure control, iterative reconstruction, and/or weight based adjustment of the mA/kV was utilized to reduce the radiation dose to as low as reasonably achievable. COMPARISON: 10/15/2022. HISTORY: ORDERING SYSTEM PROVIDED HISTORY: Cholecystectomy. Reason for Exam: Left flank pain x 3 weeks, some burning with urination. FINDINGS: Visualized lung bases are clear. Liver, spleen, pancreas and adrenal glands are unremarkable. Gallbladder is surgically absent. Kidneys are symmetric in size without hydronephrosis. Bilateral nephrolithiasis, junior sales representative left mid/lower pole calculus measures up to 4 mm and is unchanged in position. Urinary bladder is unremarkable. Slightly prominent right ovary measuring 3.8 cm (prior 3.5 cm.) This is probably normal for the patient. Small bowel, colon and appendix are normal in caliber. There is no definite bowel wall thickening, intraperitoneal free air or focal fluid collection. No abdominal or pelvic lymphadenopathy. Nonaneurysmal abdominal aorta. No acute fracture or destructive osseous lesion. IMPRESSION: No acute findings within abdomen or pelvis. No obstructive uropathy. Nonobstructive bilateral nephrolithiasis. I have personally reviewed the images of this examination and agree with the resident's finding and interpretation. Interpreted by: Riaz Mitchell MD Preliminary Report By: Gatito Rosario Electronically signed By Riaz Mitchell MD Dictated Date: 12/01/2022 3:25:13 PM Prelim Date: 12/01/2022 3:53:51 PM Sign Date: 12/01/2022 3:53:51 PM Ordering Provider: FAITH ARIAS [facility] 12-01-2022 Telephone encounter Note Patient has not returned calls to r/s surgery. [facility] 12-01-2022 Miscellaneous Notes Patient has not returned calls to r/s surgery. Left voicemail for patient to call office if she would still like to schedule surgery. Rafal vs lap RO omentectomy documented in this encounter [facility] 11-14-2022 Instructions Adriane Rodriguez APRN.[facility] - 11/14/2022 3:30 PM EDT Images from the original note were not included. follow with PCP in 5-7 days for recheck. Emergency room if symptoms change or worsen. Daytime Frequency of Urination What is frequency of urination during the day? Daytime frequency of urination occurs most often when a child is 4 to 5 years old. You will notice that: Your child suddenly starts urinating every 10 to 30 minutes and as often as 30 to 40 times a day. Your child passes small amounts of urine each time. Your child has no pain with urination. Your child does not wet himself during the day. Your child does not drink excessive amounts of fluids. Your child has been toilet trained. The urinary frequency is not a problem during sleep. What is the cause? Frequent urination sometimes reflects emotional tension. It means your child is under pressure. The symptom is involuntary, not deliberate. The urinary frequency may begin within 1 or 2 days of a stressful event or change in the child's routine. You can make the problem worse by worrying about disease. Punishment, criticism, or teasing also worsens the symptom. Although physical causes are rare, your child should be examined by a healthcare provider. The only test that is usually needed is a check of the urine. No X-rays are needed. How long will it last? Overall, this is a harmless condition that eventually goes away by itself. If you can identify and deal with whatever is stressing your child, his frequent urination will disappear in 1 to 4 weeks. Without treatment, the symptom usually gets better on its own in 2 or 3 months. A few children who also have small bladders and problems with bedwetting may have this symptom more than once. How can I help my child? Reassure your child that he is physically healthy. Tell your child that his body, kidneys, urine, and any other aspect of his health that he is worried about are fine. Because the family (and also possibly healthcare providers) have been concerned about the child's bladder and urine, he may fear there is something wrong with his urinary tract. Reassure him once or twice that he is quite healthy. Reassure your child that he can learn to wait longer to urinate. Reassure him that he won't wet himself, which is a common fear. If he has wet himself before, encourage him to talk about his embarrassment and reassure him it happens sometimes to many children. Tell him that he will gradually get back to urinating every 2 to 3 hours, or whatever his previous pattern was. If his frequency of urination has gotten worse during shopping trips or travel in general, don't take him with you to public places for a while. Help your child relax. Frequency of urination can be a barometer of inner tension. Make sure your child has free time and fun time every day. If he is over-scheduled with activities, try to lighten the commitments. Relaxation exercises may help your child if he is over 8 years old. Increasing the happiness and harmony within your home will usually restore your child's sense of security. Ask the staff at your child's school or day care to help reduce any tensions there, such as limits on when a child can use the bathroom. Try to figure out what is stressing your child. Meet with other family members and try to think of a stressful event that may have occurred 1 or 2 days before the frequency began. Also ask school or day care staff for ideas. Talk about your ideas with your child and try to help him overcome the stress. Common stressful events are: in the family accident or other life-threatening event tension in the marriage a sick parent or sibling school entry or a new school too much concern about staying dry at night wetting himself in the presence of peers. Ignore the symptom of frequency. When your child is using the toilet frequently, don't comment on it. Comments remind him that the symptom is worrying you. Stop keeping any record of amount or frequency of urination. Do not collect any urine samples or measure volumes. Don't ask your child about his symptom or watch him urinate. Do not have your child do bladder-stretching exercises. Your child does not need to tell you when he has urinated; you will have a general impression about whether he is getting better or staying the same. Be sure that none of your child's caretakers or teachers is punishing or criticizing him about this symptom. Stop all family conversation about the frequency. The less said about it, the less anxious your child will be about it. If your child brings up the topic, reassure him that he will gradually get better. Avoid bubble bath and other irritants. Bubble bath can cause frequent urination in children, especially girls. Bubble bath can irritate the opening of the urinary tract. Taking a bath in water that contains hair shampoo can also cause similar symptoms. In addition, before puberty, be sure your child washes the genital area with water, not soap. When should I call my child's healthcare provider? Call during office hours if: The frequency of urination is not back to normal after you have followed these recommendations for 1 month. Your child begins to have pain or burning when urinating. Your child begins to wet himself during the day. Your child begins to drink excessive amounts of fluids. You have other questions or concerns. Published by [employer]. This content is reviewed periodically and is subject to change as new health information becomes available. The information is intended to inform and educate and is not a replacement for medical evaluation, advice, diagnosis or treatment by a healthcare professional. Written by Cameron Mcwilliams M.D., author of Your Child's Health, [employer]. Copyright 2007 [employer] and/or one of its subsidiaries. All Rights Reserved. Copyright [employer] 2008 Pediatric Advisor documented in this encounter [facility] 11-14-2022 History of Present illness Narrative Kaya Arce is a 37 year old female who presents with urine problem (Frequent urination that started two days ago. Then the next day was driving and got right side flank pain. Woke this morning took Aleve because the pain is now on the left side. ) Duration: 3 days Burning with urination: No Blood in urine: No Urinating frequently: Yes Feel like has to go but when tries to go not much urine comes out: No Urgency--has to go right away or will have an accident: Yes Urinating at night: No Abdominal pain: Yes If abdominal pain, where is it located: suprapubic Back Pain: No Fever: No Nausea: No Vomiting:No History of UTIs: Yes Last Menstrual Period: not applicable, hysterectomy 2021 PAST MEDICAL HISTORY Diagnosis Date Abnormal glandular Papanicolaou smear of cervix Abn. Pap smear (cervix) Abnormal maternal glucose tolerance, antepartum 2003 diet controlled Allergic rhinitis, cause unspecified Allergic rhinitis Anal fissure Anal fissure Ankylosis spondylitis Arthritis Asthma Back pain Calculus of kidney 2007 4 stones, followed by Dr. long Cardiac arrhythmia Crohn's disease (HCC) Daytime somnolence Diaphragmatic hernia without mention of obstruction or gangrene Elevated lipids Endometriosis Esophageal reflux Essential hypertension 06/03/2018 Fibromyalgia Flatulence, eructation, and gas pain gestational diabetes Hemorrhage of rectum and anus Hemorrhoids Hirsutism HTN (hypertension) Hypokalemia Interstitial cystitis Irregular menses Kidney stones Lupus (HCC) Lyme disease Numbness Obesity, Class I, BMI 30-34.9 10/06/2017 ALVERTO (obstructive sleep apnea) 02/06/2022 PCOS (polycystic ovarian syndrome) PMH - PAST MEDICAL HISTORY OF L4-L5 conjoined nerves affecting R leg-sees neuro [facility] Renal disease Syncope Unspecified asthma(493.90) ACTIVE PROBLEM LIST Uncomplicated Asthma Chronic Rhinitis Insulin Resistance IBS (IRRITABLE BOWEL SYNDROME) Anal Fissure Benign Neoplasm of Colon Esophageal Reflux Deviated Nasal Septum Polycystic Ovaries Impaired Fasting Glucose Unspecified Thrombosed Hemorrhoids Personal History of Cervical Dysplasia Anxiety State, Unspecified Previous Delivery, Antepartum Condition Or Complication Hidradenitis Kidney Stones Acne Vulgaris: Inflammatory Grade III to IV Scars: Acne and Excoriation--related Primary Focal Hyperhidrosis Contact Dermatitis and Other Eczema, Due to Unspecified Cause Folliculitis Pain in Joint, Lower Leg Headache(784.0) Inflammatory Myopathy Adrenal Insufficiency (Hcc) Muscle Spasm Kidney Stone Lyme Disease Seborrheic Dermatitis Calculus of Ureter Monilial Vulvovaginitis Migraine Without Aura, With Intractable Migraine, So Stated, Without Mention of Status Migrainosus Microhematuria Flank Pain Female Stress Incontinence Menstrual Irregularity Palpitations Anorectal Polyp Lumbosacral Neuritis Gross Hematuria History of Kidney Stones Straining On Urination Hesitancy Difficulty Voiding Pelvic Pain in Female Endometriosis Obesity, Class I, Bmi 30-34.9 Bulging of lumbar intervertebral disc Fibromyalgia Essential Hypertension Chronic Midline Low Back Pain Without Sciatica Trochanteric Bursitis of Both Hips Pcos (Polycystic Ovarian Syndrome) Bloody Diarrhea Medullary Sponge Kidney of Both Kidneys Epigastric Pain Status Post Cholecystectomy Pots (Postural Orthostatic Tachycardia Syndrome) Chronic Interstitial Cystitis With Hematuria Urgency Incontinence Feeling of Incomplete Bladder Emptying Acute Cystitis With Hematuria Family History of Gout Family History of Nephrolithiasis Seasonal Allergies Allergic Conjunctivitis, Bilateral Anaphylaxis Due to Hymenoptera Venom Allergic Urticaria Allergy to Cephalosporin Mild Persistent Asthma Latex Allergy Status Alverto (Obstructive Sleep Apnea) Sinus Tachycardia Prediabetes Current Outpatient Medications Medication Sig Dispense Refill loratadine (CLARITIN) 10 mg tablet Take 1 tablet by mouth every afternoon. sucralfate (CARAFATE) 100 mg/mL suspension 10 ML ORALLY 4 TIMES PER DAY 1 HOUR BEFORE MEALS AND AT BEDTIME ON AN EMPTY STOMACH famotidine (PEPCID) 40 mg tablet Take 1 tablet by mouth every afternoon. nystatin (MYCOSTATIN) powder APPLY TO AFFECTED AREA TWICE DAILY. 60 g 1 tretinoin (RETIN-A) 0.05 % cream Apply pea-sized amount to entire face once nightly. Begin 3 times weekly and and gradually increase frequency to nightly as tolerated. 45 g 3 hydrocortisone (HYTONE,CETACORT) 1 % lotion Apply to affected area twice daily. 60 mL ibuprofen (MOTRIN) 600 mg tablet Take 1 tablet by mouth every 6 hours. Take with food. 60 tablet 0 acetaminophen (TYLENOL EXTRA STRENGTH) 500 mg tablet Take 2 tablets by mouth every 6 hours. 60 tablet 0 mesalamine (ROWASA) 4 gram/60 mL enema 4 g by RECTAL route daily at bedtime. lidocaine (XYLOCAINE) 5 % ointment Apply to affected area as needed. baclofen vaginal suppository 10 mg (CPD) Unwrap and inserty 1 Suppository vaginally once daily as directed. 30 Suppository 5 EPINEPHrine (EPIPEN 2-SINCERE) 0.3 mg/0.3 mL auto-injector Inject 0.3 mL intramuscularly as needed (Inject in thigh as needed for anaphylaxis and call 911). GENERIC OKAY 2 Each 3 BIOTIN ORAL Take by mouth once daily. cyanocobalamin, vitamin B-12, (VITAMIN B-12 ORAL) Take by mouth. clobetasol (TEMOVATE) 0.05 % ointment Apply to affected area twice daily as needed (for severe flares of the dermatitis on the hands and feet.). For flares on the hands 60 g 0 flurandrenolide (CORDRAN) 0.05 % lotion Apply to affected area twice daily. As needed. 120 mL 1 Clobetasol Propionate (CLOBEX) 0.05 % sham Apply to affected area once daily as needed (for scalp irritation). Apply to dry scalp, leave on for 15 minutes and then wash off. [address] (PROTONIX) 40 mg tablet Take 40 mg by mouth once daily. On hold currently d/t trying new med ondansetron orally disintegrating (ZOFRAN ODT) 4 mg disintegrating tablet Take 1 tablet by mouth every 8 hours as needed. 40 Each 1 atenolol (TENORMIN) 25 mg tablet TAKE 1/2-1 TAB BY MOUTH TWICE A DAY DIRECTED 0 albuterol HFA (PROVENTIL HFA, VENTOLIN HFA) 90 mcg/actuation inhaler Inhale 2 Puffs as instructed. potassium chloride (KLOR-CON 10) 10 mEq tablet Take 2 tablets by mouth once daily. (Patient taking differently: Take 20 mEq by mouth twice daily.) 60 tablet 11 docusate sodium (COLACE) 100 mg capsule Take 100 mg by mouth twice daily as needed. cetirizine 10 mg tablet Take 1 tablet by mouth once daily. 30 tablet 3 MULTI-VITAMIN ORAL Take by mouth once daily. 2 tablets daily spironolactone (ALDACTONE) 50 mg tablet Take 1 tablet by mouth once daily. 30 tablet 6 gabapentin (NEURONTIN) 300 mg capsule Take 1 capsule by mouth once daily for 60 days. 30 capsule 1 oxyCODONE IR (ROXICODONE) 5 mg immediate release tablet Take 1 tablet by mouth every 8 hours as needed for pain. (Patient not taking: Reported on 04/07/2022) 10 tablet 0 Senna 8.6 mg tab Take 1 tablet by mouth twice daily. 60 tablet 0 clascoterone 1 % crea Apply 1 application to affected area twice daily. 60 g 3 No current facility-administered medications for this visit. Social History Tobacco Use Smoking status: Never Smokeless tobacco: Never Vaping Use Vaping Use: Never used Substance Use Topics Alcohol use: Not Currently Drug use: No Alcohol Use: Not Currently Tobacco Use: Never FAMILY HISTORY Problem Relation Age of Onset Prostate Cancer Maternal Grandfather Cancer Maternal Grandfather leukemia other (parkinsons) Maternal Grandfather Coronary Artery Disease Paternal Grandfather 69 suddenly Diabetes Paternal Grandmother Lipids Mother Osteoporosis Mother Heart disease Mother CAD and stent at age 71. Lipids Father Hypertension Father other (kidney stones) Father other (CHF) Father other (spastic 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) Son Breast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 fabrics. Requested Prescriptions Signed Prescriptions Disp Refills spironolactone (ALDACTONE) 50 mg tablet 30 tablet 6 Sig: Take 1 tablet by mouth once daily. benzoyl peroxide (BENOXYL 10) 10 % lotn 29.5 mL 3 Sig: Apply to affected area twice daily. hydrocortisone (HYTONE,CETACORT) 1 % lotion 60 mL Sig: Apply to affected area twice daily. There are no Patient Instructions on file for this visit. Follow-up as noted below or as needed. Chief Complaint: Patient presents with: Acne Subjective and Objective HPI: Kaya Arce is a 36 year old female seen for: Gets acne now on the face and sometimes in the genital area. HISTORY REVIEWED (electronic chart updated): Recent diagnosis of Ovarian Cancer, s/p hysterectomy/and unilateral oophorectomy. Current Outpatient Medications Medication Sig spironolactone (ALDACTONE) 50 mg tablet Take 1 tablet by mouth once daily. benzoyl peroxide (BENOXYL 10) 10 % lotn Apply to affected area twice daily. hydrocortisone (HYTONE,CETACORT) 1 % lotion Apply to affected area twice daily. gabapentin (NEURONTIN) 300 mg capsule Take 1 capsule by mouth once daily for 60 days. ibuprofen (MOTRIN) 600 mg tablet Take 1 tablet by mouth every 6 hours. Take with food. oxyCODONE IR (ROXICODONE) 5 mg immediate release tablet Take 1 tablet by mouth every 8 hours as needed for pain. (Patient not taking: Reported on 04/07/2022) Senna 8.6 mg tab Take 1 tablet by mouth twice daily. acetaminophen (TYLENOL EXTRA STRENGTH) 500 mg tablet Take 2 tablets by mouth every 6 hours. mesalamine (ROWASA) 4 gram/60 mL enema 4 g by RECTAL route daily at bedtime. lidocaine (XYLOCAINE) 5 % ointment Apply to affected area as needed. nystatin (MYCOSTATIN) powder Apply 1 application to affected area twice daily. APPLY TO AFFECTED AREA clascoterone 1 % crea Apply 1 application to affected area twice daily. baclofen vaginal suppository 10 mg (CPD) Unwrap and inserty 1 Suppository vaginally once daily as directed. EPINEPHrine (EPIPEN 2-SINCERE) 0.3 mg/0.3 mL auto-injector Inject 0.3 mL intramuscularly as needed (Inject in thigh as needed for anaphylaxis and call 911). GENERIC OKAY BIOTIN ORAL Take by mouth once daily. cyanocobalamin, vitamin B-12, (VITAMIN B-12 ORAL) Take by mouth. clobetasol (TEMOVATE) 0.05 % ointment Apply to affected area twice daily as needed (for severe flares of the dermatitis on the hands and feet.). For flares on the hands flurandrenolide (CORDRAN) 0.05 % lotion Apply to affected area twice daily. As needed. Clobetasol Propionate (CLOBEX) 0.05 % sham Apply to affected area once daily as needed (for scalp irritation). Apply to dry scalp, leave on for 15 minutes and then wash off. pantoprazole DR (PROTONIX) 40 mg tablet Take 40 mg by mouth once daily. ondansetron orally disintegrating (ZOFRAN ODT) 4 mg disintegrating tablet Take 1 tablet by mouth every 8 hours as needed. atenolol (TENORMIN) 25 mg tablet TAKE 1/2-1 TAB BY MOUTH TWICE A DAY DIRECTED albuterol HFA (PROVENTIL HFA, VENTOLIN HFA) 90 mcg/actuation inhaler Inhale 2 Puffs as instructed. potassium chloride (KLOR-CON 10) 10 mEq tablet Take 2 tablets by mouth once daily. (Patient taking differently: Take 20 mEq by mouth twice daily.) docusate sodium (COLACE) 100 mg capsule Take 100 mg by mouth twice daily as needed. cetirizine 10 mg tablet Take 1 tablet by mouth once daily. MULTI-VITAMIN ORAL Take by mouth once daily. 2 tablets daily No current facility-administered medications for this visit. ALLERGIES Allergen Reactions Keflex [Cephalexin] Hives, Anaphylaxis Tolerates amoxicillin Bees Hives, Swelling Cardizem [Diltiazem* Intolerance Spikes BP Doxycycline GI Upset Not able to tolerate due to GI effects Eucalyptus tachycardia close airway Latex Swelling Nitroglycerin Suppo* Tizanidine Mental Status Change Low HR, cold and clammy (subjective only) Physical exam: Limited by the virtual visit technology. A few inflammatory papules notedon the inferior face. Attending signature: Petar Dennis MD This note is completed at 3:55 PM on 05/31/2022 and reflects the services provided at the time of the appointment. I agree with the Chief Complaint, ROS, and Past Histories independently gathered by the clinical underwriting support specialist. documented in this encounter [facility] 05-19-2022 Note HNO ID: [id number] Author: Petar Dennis MD Service: ? Author Type: Physician Type: Progress Notes Filed: 05/31/2022 3:56 PM Note Text: Department of Dermatology Petar Dennis MD 05/19/2022 VIRTUAL VISIT PROGRESS NOTE This visit was completed virtually, using synchronous telemedicine technology. It required patient-provider interaction for the medical decision making as documented below. The patient consented to the use of this technology, which is compliant with applicable regulations at the time of the visit. The patient (or the patient's guardian) verbally expressed agreement to proceed with the visit. Technology platform: PeopleDoc Last visit in Dermatology: 12/31/2021 Assessment (L70.9) Adult acne (primary encounter diagnosis) Plan: Discussed treatment options. There remains an inflammatory component here. We discussed the risks, benefits, alternatives, and expected outcomes concerning the prescribed medications. We answered any patient questions regarding these medications and reviewed their use. Spironolactone as noted. For flares combine spironolactone and hydrocortisone lotions, 50/50 and apply twice daily to the affected areas of inflammation. Be cautious about fabrics. Requested Prescriptions Signed Prescriptions Disp Refills spironolactone (ALDACTONE) 50 mg tablet 30 tablet 6 Sig: Take 1 tablet by mouth once daily. benzoyl peroxide (BENOXYL 10) 10 % lotn 29.5 mL 3 Sig: Apply to affected area twice daily. hydrocortisone (HYTONE,CETACORT) 1 % lotion 60 mL Sig: Apply to affected area twice daily. There are no Patient Instructions on file for this visit. Follow-up as noted below or as needed. Chief Complaint: Patient presents with: Acne Subjective and Objective HPI: Kaya Arce is a 36 year old female seen for: Gets acne now on the face and sometimes in the genital area. HISTORY REVIEWED (electronic chart updated): Recent diagnosis of Ovarian Cancer, s/p hysterectomy/and unilateral oophorectomy. Current Outpatient Medications Medication Sig spironolactone (ALDACTONE) 50 mg tablet Take 1 tablet by mouth once daily. benzoyl peroxide (BENOXYL 10) 10 % lotn Apply to affected area twice daily. hydrocortisone (HYTONE,CETACORT) 1 % lotion Apply to affected area twice daily. gabapentin (NEURONTIN) 300 mg capsule Take 1 capsule by mouth once daily for 60 days. ibuprofen (MOTRIN) 600 mg tablet Take 1 tablet by mouth every 6 hours. Take with food. oxyCODONE IR (ROXICODONE) 5 mg immediate release tablet Take 1 tablet by mouth every 8 hours as needed for pain. (Patient not taking: Reported on 04/07/2022) Senna 8.6 mg tab Take 1 tablet by mouth twice daily. acetaminophen (TYLENOL EXTRA STRENGTH) 500 mg tablet Take 2 tablets by mouth every 6 hours. mesalamine (ROWASA) 4 gram/60 mL enema 4 g by RECTAL route daily at bedtime. lidocaine (XYLOCAINE) 5 % ointment Apply to affected area as needed. nystatin (MYCOSTATIN) powder Apply 1 application to affected area twice daily. APPLY TO AFFECTED AREA clascoterone 1 % crea Apply 1 application to affected area twice daily. baclofen vaginal suppository 10 mg (CPD) Unwrap and inserty 1 Suppository vaginally once daily as directed. EPINEPHrine (EPIPEN 2-SINCERE) 0.3 mg/0.3 mL auto-injector Inject 0.3 mL intramuscularly as needed (Inject in thigh as needed for anaphylaxis and call 911). GENERIC OKAY BIOTIN ORAL Take by mouth once daily. cyanocobalamin, vitamin B-12, (VITAMIN B-12 ORAL) Take by mouth. clobetasol (TEMOVATE) 0.05 % ointment Apply to affected area twice daily as needed (for severe flares of the dermatitis on the hands and feet.). For flares on the hands flurandrenolide (CORDRAN) 0.05 % lotion Apply to affected area twice daily. As needed. Clobetasol Propionate (CLOBEX) 0.05 % sham Apply to affected area once daily as needed (for scalp irritation). Apply to dry scalp, leave on for 15 minutes and then wash off. pantoprazole DR (PROTONIX) 40 mg tablet Take 40 mg by mouth once daily. ondansetron orally disintegrating (ZOFRAN ODT) 4 mg disintegrating tablet Take 1 tablet by mouth every 8 hours as needed. atenolol (TENORMIN) 25 mg tablet TAKE 1/2-1 TAB BY MOUTH TWICE A DAY DIRECTED albuterol HFA (PROVENTIL HFA, VENTOLIN HFA) 90 mcg/actuation inhaler Inhale 2 Puffs as instructed. potassium chloride (KLOR-CON 10) 10 mEq tablet Take 2 tablets by mouth once daily. (Patient taking differently: Take 20 mEq by mouth twice daily.) docusate sodium (COLACE) 100 mg capsule Take 100 mg by mouth twice daily as needed. cetirizine 10 mg tablet Take 1 tablet by mouth once daily. MULTI-VITAMIN ORAL Take by mouth once daily. 2 tablets daily No current facility-administered medications for this visit. ALLERGIES Allergen Reactions Keflex [Cephalexin] Hives, Anaphylaxis Tolerates amoxicillin Bees Hives, Swelling Cardizem [Diltia (more content not included)... [facility] 05-19-2022 Nurse Note Spoke to Kaya Arce, confirmed patient is registered on [email or web address] and is prepared for their appointment. Confirmed the patient has updated medications, allergies, and questionnaires via [email or web address]. Informed patient if there is an issue with the connection, provider will send the patient a secure link. If provider is running late, patient should remain connected to the visit. Patient verbalized understanding. documented in this encounter [facility] 04-21-2022 Miscellaneous Notes Called patient to discuss tumor board recommendations. Reviewed pathology results showing low grade proliferation- reassured her. Recommended surveillance US in 6 months. Patient had questions regarding the need to remove her right ovary and her preoperative diagnosis of endometriosis on MRI which was not noted on imaging. Answered her questions to the best of my ability. Kellen Mayorga MD documented in this encounter [facility] 04-20-2022 Note HNO ID: [id number] Author: Marifer Nicole MD Service: ? Author Type: Fellow Type: Progress Notes Filed: 04/21/2022 7:49 AM Note Text: [facility]/Onc Tumor Board Encounter Note Date of Tumor Board Presentation: 04/21/2022 Treating Physicians: Mukesh Foreman MD Age: [age] year old Disease site: Other Stage(at tumor board presentation)- N/A Care Path Discussion: No Clinical Trial Discussion: No If yes, what clinical trial should be considered? NA Type of Tumor Board Review: Adjuvant therapy Attendance/Disciplines: INSTITUTION DIRECTOR ONC, RAD ONC, Radiology, Pathology, and Genetics Management Options: - Recommend surveillance Citations: NCCN Ovarian Cancer Guidelines Version 3.2020 Bambi E, Dillonerman P, Massimon K, Alirio F, Natalie P, Vergote I. Fertility Preservation Is Safe for Serous Borderline Ovarian Tumors. Int J Gynecol Cancer. 2016 Dec;26(8):1399-406. doi: 10.1097/IGC.[id number]. PMID: 24097254. This abstract and interpretation of the conversation at tumor board has been completed by Ginette Barber MD. These are the general recommendations/discussion provided at tumor board conference. The definitive recommendations/discussion will be made by the primary health care team and patient after full discussion as appropriate. [facility] 04-20-2022 History of Present illness Narrative [facility] Tumor Board Encounter Note Date of Tumor Board Presentation: 04/21/2022 Treating Physicians: Mukesh Froeman MD Age: [age] year old Disease site: Other Stage(at tumor board presentation)- N/A Care Path Discussion: No Clinical Trial Discussion: No If yes, what clinical trial should be considered? NA Type of Tumor Board Review: Adjuvant therapy Attendance/Disciplines: INSTITUTION DIRECTOR ONC, RAD ONC, Radiology, Pathology, and Genetics Management Options: - Recommend surveillance Citations: NCCN Ovarian Cancer Guidelines Version 3.2020 Crissyrasarkis E, Moingrid P, Massimon K, Alirio F, Natalie P, Vergote I. Fertility Preservation Is Safe for Serous Borderline Ovarian Tumors. Int J Gynecol Cancer. 2016 Dec;26(8):1399-406. doi: 10.1097/IGC.[id number]. PMID: 14963583. This abstract and interpretation of the conversation at tumor board has been completed by Ginette Barber MD. These are the general recommendations/discussion provided at tumor board conference. The definitive recommendations/discussion will be made by the primary health care team and patient after full discussion as appropriate. documented in this encounter [facility] 04-07-2022 Miscellaneous Notes Postop patient Dr. Thomas reports bleeding. s/p 02/10/2022 SURGERY/PROCEDURE(S): Total laparoscopic hysterectomy, right salpingectomy, right ovarian cystectomy, extensive lysis of bladder adhesions, left ureterolysis, excision of bowel lesion. Dr. Alvarado performed flexible sigmoidoscopy Had bleeding 2 weeks ago - not heavy. Yesterday started bleeding much heavier with cramps. Changed one pad since 8am this morning, has multiple stringy clots. Took Aleve 45 minutes ago, has not relieve cramping pain. Rating cramping 4-5/10. Was on her feet for about 8 hours yesterday. Has not had intercourse or lifted anything heavy. Feels some lightheadedness, starting 2- 3 ago. Please advise. Shawnee Mas RN Called patient verified name and Gave recommendation of going to the ED for evaluation Patient understood and would go Argelia Martinez RN Patient needs to be evaluated today. No providers available to add her on in clinic today. Recommend [facility] ED for further evaluation and treatment. Lluvia Manjarrez APRN.MARY Postop patient Dr. Thomas reports bleeding. s/p 02/10/2022 SURGERY/PROCEDURE(S): Total laparoscopic hysterectomy, right salpingectomy, right ovarian cystectomy, extensive lysis of bladder adhesions, left ureterolysis, excision of bowel lesion. Dr. Alvarado performed flexible sigmoidoscopy Had bleeding 2 weeks ago - not heavy. Yesterday started bleeding much heavier with cramps. Changed one pad since 8am this morning, has multiple stringy clots. Took Aleve 45 minutes ago, has not relieve cramping pain. Rating cramping 4-5/10. Also reports pressure with urination. Was on her feet for about 8 hours yesterday. Has not had intercourse or lifted anything heavy. Feels some lightheadedness, starting 2- 3 ago. Please advise. Shawnee Mas RN Patient of Dr Thomas Status post surgery 01/2022 with vaginal bleeding Patient concerned with her vaginal bleeding Patient can be reached at [phone] Jeni Davis documented in this encounter [facility] 04-07-2022 History of Present illness Narrative DATE OF SERVICE: 03/26/2022 REASON FOR VISIT: low grade serous epithelial proliferation on peritoneal biopsy; new consult Consultation requested by Brandee Ramos CNP. My final recommendations will be communicated back to the requesting physician by way of shared Medical record or letter to requesting physician via US mail. 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 Arce is a 36 year old female who has a PMH significant for abnormal pap smear, anal fissure, Chron's disease, Cardiac arrhythmia, fibromyalgia, HTN, Lupus, PCOS, Obesity, Asthma, renal disease, LSO (2015 -benign serous inclusions with psammoma bodies), bilateral inguinal hernia repair as infant, diagnostic laparoscopy, laparoscopic excision of endometriosis, Right cystectomy and cholecystectomy. She has been following with [facility] for Endometriosis and pelvic pain that she has been suffering from for several years. [facility] was consulted due to her history and MRI pelvis on 07/29/2021 which showed infiltrative endometriosis with sigmoid tethered to right pelvic wall/right ovarian lesion and cecum tethered to right ovarian lesion. Plans were made for Total laparoscopic hysterectomy and bilateral salpingectomy with CORS present. On 02/10/2022, she underwent Total laparoscopic hysterectomy, right salpingectomy, right ovarian cystectomy, extensive lysis of bladder adhesions, left ureterolysis, excision of bowel lesion and flexible sigmoidoscopy. Her pathology results showed peritoneal biopsy c/w low grade serous epithelial cells. Right fallopian tube and right ovarian cyst was benign. Pathology was reviewed with patient and it was discussed that she follow-up with INSTITUTION DIRECTOR ONC and have staging scans done. Patient had CT scans done on 03/26/2022. Patient presents today to discuss next steps. Of note, she reports abnormal vaginal bleeding which she says was initially spotting 2 weeks ago, but became heavier with clots this morning. Also c/o pelvic cramping. States that she was more physically active over the weekend. DATE OF LAST VISIT: n/a OBSTETRIC/ GYNECOLOGY HISTORY: Gynecologic surgery: TLH, right salpingectomy, right ovarian cystectomy 02/10/2022 LMP: 02/10/2022 Last Pap: 03/26/2021 normal Last HPV: 03/26/2021 negative Genetics Consultation/Testing Consultation: Yes in 06/2012 for PCOS Genetic Testing: No - testing was not recommended Date of testing: n/a Results: n/a PAST MEDICAL HISTORY Diagnosis Date Abnormal glandular Papanicolaou smear of cervix Abn. Pap smear (cervix) Abnormal maternal glucose tolerance, antepartum 2003 diet controlled Allergic rhinitis, cause unspecified Allergic rhinitis Anal fissure Anal fissure Ankylosis spondylitis Arthritis Asthma Back pain Calculus of kidney 2007 06 stones, followed by Dr. long Cardiac arrhythmia Crohn's disease (HCC) Daytime somnolence Diaphragmatic hernia without mention of obstruction or gangrene Elevated lipids Endometriosis Esophageal reflux Essential hypertension 06/03/2018 Fibromyalgia Flatulence, eructation, and gas pain gestational diabetes Hemorrhage of rectum and anus Hemorrhoids Hirsutism HTN (hypertension) Hypokalemia Interstitial cystitis Irregular menses Kidney stones Lupus (HCC) Lyme disease Numbness Obesity, Class I, BMI 30-34.9 10/06/2017 ALVERTO (obstructive sleep apnea) 02/06/2022 PCOS (polycystic ovarian syndrome) PMH - PAST MEDICAL HISTORY OF L4-L5 conjoined nerves affecting R leg-sees neuro [facility] Renal disease Syncope Unspecified asthma(493.90) PAST SURGICAL HISTORY Procedure Laterality Date DELIVERY ONLY 03/29/2003 , low cervical COLONOSCOPY FLX DX W/COLLJ SPEC WHEN PFRMD 03/29/1986 Colonoscopy COLONOSCOPY FLX DX W/COLLJ SPEC WHEN PFRMD 06/20/2014 Colonoscopy CONIZATION CERVIX W/WO D&C RPR ELTRD EXC 03/29/2001 LEEP-Cervix ESWL X1 F SALPINGO-OOPHORECTOMY 08/21/2014 LEFT only LAPAROSCOPY TOTAL HYST 250 G OR LESS 02/10/2022 Right salpingectomy PAST SURGICAL HISTORY OF WISDOM TEETH PAST SURGICAL HISTORY OF < 1 yr old bilat inguinal hernia repair REMOVAL GALLBLADDER 2019 SIGMOIDOSCOPY FLX DX W/COLLJ SPEC BR/WA IF PFRMD Sigmoidoscopy, flexible Family History Problem Relation Age of Onset Prostate Cancer Maternal Grandfather Cancer Maternal Grandfather leukemia other (parkinsons) Maternal Grandfather Coronary Artery Disease Paternal Grandfather 69 suddenly Diabetes Paternal Grandmother Lipids Mother Osteoporosis Mother Heart disease Mother CAD and stent at age 71. Lipids Father Hypertension Father other (kidney stones) Father other (CHF) Father other (spastic 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) Son Breast Cancer Maternal Grandmother age 90 other (down syndrome) Paternal Uncle PATHOLOGY: 07/2014 LSO CONVERTED FINAL DIAGNOSIS 1. Left ovary, excision (A) - Sclerocystic ovary with benign serous inclusions with psammoma bodies, negative for neoplasm. 2. Left fallopian tube, excision (A) - Intraluminal psammoma bodies, negative for neoplasm. 02/10/2022 Surgical Pathology Final Diagnosis: A. Peritoneum, bowel lesion, biopsy - Clusters of low-grade serous epithelial cells (see comment) B. Fallopian tube, right, salpingectomy - Fimbriated fallopian tube with no significant abnormality C. Uterus and cervix, total laparoscopic hysterectomy - Cervix: No significant abnormality - Endometrium: Proliferative endometrium - Myometrium: Leiomyoma, 1 cm - Serosa: Serosal adhesions D. Ovary, right, cystectomy - Follicular cyst Diagnosis Comment: Microscopic examination of the peritoneal biopsy (part A) demonstrates fibroadipose tissue with clusters of epithelial cells arranged in a papillary architectural pattern with mild nuclear atypia and in close association with calcifications. Immunohistochemical stains performed on block A1 demonstrate the lesional cells expressing [place]-8, ER, and MOC-31, with no expression of D2-40, in further support of a serous phenotype and lending no support for mesothelial differentiation. Overall, the histomorphologic and immunophenotypic features are of a low-grade serous epithelial proliferation. Clinical correlation with close clinical follow-up is recommended. Dr. Farideh Card ([facility]nec[facility]) has reviewed the case and agrees with the diagnosis. Dr. Sonya Pal discussed the findings of the case with Dr. Hellen Thomas by phone on 02/13/2022 at 2:35PM. TUMOR MARKERS Tumor Markers CA 125 DHEA-S Latest Ref Rng & Units 0 - 35 U/mL 60.9 - 337.0 ug/dL 02/11/2021 - 143.2 06/04/2020 - 159.6 06/23/2019 - 126.6 04/17/2019 - 135.8 08/13/2014 22 - 07/31/2010 - 278.3(H) 01/17/2009 - 210.9 12/01/2007 - 169.9 RECENT IMAGIN01/10/2020 Pelvic US Impression Normal appearing anteverted uterus that measures 108 mm x 37 mm x 57 mm. The central endometrium complex measures 12.9 mm in combined thickness. No abnormal blood flow to suggest a polyp or focal endometrial pathology is observed within the endometrial complex. The right ovary is polycystic appearing. The left ovary is not visualized. There is no free fluid visualized in the peritoneal cavity. Recommendations Follow up as clinically indicated. 07/04/2020 Pelvic US Indication Abnormal uterine bleeding Impression Normal appearing anteverted uterus that measures 98 mm x 39 mm x 51 mm. The central endometrium complex measures 8.3 mm in combined thickness. No abnormal blood flow to suggest a polyp or focal endometrial pathology is observed within the endometrial complex. The contour of the endometrial cavity was normal on 3-D imaging. The right ovary is normal appearing. A left oophorectomy is noted. There is no free fluid visualized in the peritoneal cavity. Recommendations Follow up as clinically indicated. 07/29/2021 MRI Pelvis IMPRESSION: Findings of infiltrative endometriosis involving the right pelvic side wall, right ovary and right round ligament. Other foci of fibrosis / suspected infiltrative endometriosis as detailed in the synoptic report. Sigmoid is focally tethered to the right pelvic sidewall/right ovarian lesion with suspected focal muscular involvement. Cecum tetehred to the lesion without definite wall thickening. Thin fibrous tethering to the rectum without muscular invasion. 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 No endometrioma. Adenomyosis. Right sided hydrosalpinx. 03/26/2022 CT Chest IMPRESSION: Unremarkable chest CT with no findings of metastatic disease in the thorax. 03/26/2022 CT Abd/Pel IMPRESSION: Prominent RIGHT ovary abutting the sigmoid colon (nonspecific given the history of surgery) without evidence of invasion. No metastatic disease in the abdomen or pelvis. HEALTH MAINTENANCE: Last mammogram: n/a Last colonoscopy: 06/20/2014 - normal; sigmoidoscopy in OR on 02/10/2022 ECOG performance status ECOG PERFORMANCE STATUS: 0- Fully active, able to carry on all pre-disease performance w/o restriction. REVIEW OF SYSTEMS PAIN ASSESSMENT: + pelvic cramping GENERAL: No weight loss, malaise or fevers HEENT: Negative for frequent or significant headaches, No changes in hearing or vision, no nose bleeds or other nasal problems NECK: Negative for lumps, goiter, pain and significant neck swelling RESPIRATORY: Negative for cough, hemoptysis, COPD, or shortness of breath. + hx of asthma. CARDIOVASCULAR: Negative for chest pain, leg swelling, CHF or palpitations. + Hx of HTN GI: No nausea, vomiting or diarrhea. Hx of Crohn's disease. Reports brown stools with formation now which she says has been new since her hysterectomy in 01/2022. States previous stools before this surgery were yellow in color and less formed. : No history of dysuria, frequency or incontinence INSTITUTION DIRECTOR: Reports vaginal spotting (bright red) for 2 weeks and pelvic cramping. States this morning bleeding was heavier with clotting. Reports pelvic cramping describes pain feels like period cramps. + Hx of endometriosis. MUSCULOSKELETAL: +Hx of fibromyalgia. + back pain yesterday SKIN: Negative for lesions, rash, and itching PSYCH: Negative for sleep disturbance, mood disorder and recent psychosocial stressors HEMATOLOGY/LYMPHOLOGY: Negative for prolonged bleeding, bruising easily or swollen nodes + hx of Lupus. ENDOCRINE: + hx of PCOS NEURO: No history of headaches, syncope, paralysis, seizures or tremors OBJECTIVE: VITALS: BP 121/72 Pulse 84 Temp 98.2 Ht 5' 2.5 (1.59m) Wt 183 lb 9.6 oz (83.3kg) LMP 02/10/2022 BMI 33.02 kg/(m^2). GENERAL: oriented, pleasant, cooperative, and Alert. HEENT: Normocephalic, atraumatic, mucus membranes moist, and no lesions. NECK: Supple. ABDOMEN: Abdomen soft, non-tender, no hepatosplenomegaly. PELVIC: External genitalia normal. Vagina normal on speculum exam. Old blood in vagina vault was removed. No active bleeding. Uterus, cervix surgically absent. Bimanual pelvic exam negative. Cuff intact. LOWER EXTREMITIES: No pitting edema, no palpable cords, and no skin changes ASSESSMENT: 1. 36 yo F s/p total laparoscopic hysterectomy, right salpingectomy, right ovarian cystectomy, extensive lysis of bladder adhesions, left ureterolysis, excision of bowel lesion and flexible sigmoidoscopy on 02/10/22 for infiltrative endometriosis. Pathology of peritoneal biopsy c/w low grade serous epithelial proliferation. Right ovary/fallopian tube benign. 2. Endometriosis - follows with [facility] 3. s/p LSO (07/2014 benign serous inclusions with psammoma bodies. 4. PCOS 5. Vaginal bleeding 6. Pelvic cramping *PMHx: abnormal pap smear, anal fissure, Chron's disease, Cardiac arrhythmia, fibromyalgia, HTN, Lupus, Obesity, Asthma, renal disease, LSO, bilateral inguinal hernia repair as infant, and cholecystectomy PLAN: - I reviewed Kaya's history, pathology reports and imaging results in detail. She presents s/p TLH, RS, Right cystectomy, extensive lysis of bladder adhesions, left ureterolysis, excision of bowel lesion and flexible sigmoidoscopy on 02/10/22 for infiltrative endometriosis. This was demonstrated on MRI preoperatively. However, intraop findings did not indicate endometrioriosis - We discussed her pathology results. Pathology report did not note endometriosis and her right fallopian tube and right ovarian cyst were benign. The peritoneal biopsy results was abnormal demonstrating low grade serous epithelial proliferation. Although there is no evidence of carcinoma, there is concern of the presence of these atypical cells, though the prognosis is uncertain. Her post surgery CT C/A/P in 02/2022 showed a prominent right ovary, but no evidence of metastatic disease which is reassuring. - I will discuss her results at tumor board and have [facility] pathology review her recent pathology as well as her pathology results from her LSO in 2014 (benign serous inclusions with psammoma bodies). Considering her CT scans were unremarkable, I currently do not feel strongly that she should have her right ovary removed at this time. If tumor board recommends removal of her right ovary, she will be put in surgical menopause which she is aware of. - In view of her vaginal bleeding and pelvic cramping, I am unsure of the reason considering she is almost 2 months post op, though it may be due to increase physical activity. On pelvic exam, there was some old blood in the vaginal vault which I removed; there was no active bleeding and her vaginal cuff was intact. - Of note, she had a CA 125 drawn previously which was elevated prior to surgery- it was thought she had endometriosis prior to surgery. I explained that this could have been elevated for a number of reasons including in the setting of endometriosis; however, I will obtain CA 125 now to reassess. Plan - discuss case at tumor board and follow up with patient thereafter. - obtain CA 125 now. Medical Decision Making: Problems: Moderate: New problem with uncertain prognosis Data: Unique test result(s) reviewed: 3+ Risk: Low: Low risk from testing/treatment Medical Decision Making Level: 4 - Moderate Britney Colón, attest that I personally scribed for Dr. Kellen Mayorga MD and that the documentation was captured in collaboration with Dr. Kellen Mayorga MD. Provider Attestation: Kellen Colón MD, personally performed the services described in this documentation. All medical record entries made by the scribe were at my direction and in my presence. I have reviewed the chart and discharge instructions (if applicable) and agree that the record reflects my personal performance and is accurate and complete. MD Rudy Olvera DO SELF documented in this encounter [facility] 03-26-2022 History of Present illness Narrative Radiology Service Progress Note DATE OF SERVICE: March 26, 2022 TIME: 2:58 PM PATIENT WEIGHT: 180 LBS PATIENT IDENTITY VERIFICATION COMPLETED USING TWO (2) STANDARD IDENTIFIERS: Name and Date of confirmed by patient verbally and Name and Date of confirmed by identification band. FALL SCREENING: Has the patient had 2 falls in the last year or 1 fall with injury or currently using an Ambulatory Assistive Device (Walker, Cane, Wheelchair, Crutches, etc.)? No PATIENT GENDER DATA: Female. status: : No status: NO. ALLERGIES: Reviewed and unchanged CONTRAST ALLERGY: No EXAM: CT -CONTRAST INDUCED NEPHROPATHY RISK FACTORS: Diabetic: No CREATININE: Creatinine Date Value Ref Range Status 02/04/2022 0.61 0.58 - 0.96 mg/dL Final 02/11/2021 0.73 0.58 - 0.96 mg/dL Final 02/11/2021 0.73 0.58 - 0.96 mg/dL Final Estimated Glomerular Filtration Rate Date Value Ref Range Status 02/04/2022 118 >=60 mL/min/1.73m Final Comment: Estimated Glomerular Filtration Rate (eGFR) is calculated using the 2020 CKD-EPI creatinine equation. This equation utilizes serum creatinine, sex, and age as parameters. The creatinine assay has traceable calibration to isotope dilution-mass spectrometry. Refer to KDIGO guidelines for clinical interpretation. In patients with unstable renal function, e.g. those with acute kidney injury, the eGFR may not accurately reflect actual GFR. eGFR- Date Value Ref Range Status 02/11/2021 >60 Final 02/11/2021 >60 Final P.O.C.T. RESULTS: N/A March 26, 2022 TREATMENT: N/A IV SITE: Ambulatory: A peripheral IV was started in the Right antecubital site with a Angio cath: 22 gauge. and A Saline lock was inserted per protocol IV SITE APPEARANCE: Clean,Dry and Intact SIGNATURE: Alpa Johnson RN PATIENT NAME: Kaya Arce DATE: March 26, 2022 TIME: 2:58 PM Radiology Service Progress Note PATIENT NAME: Kaya Arce DATE OF SERVICE: March 26, 2022 TIME: 3:41 PM PATIENT IDENTITY VERIFICATION COMPLETED USING TWO (2) IDENTIFIERS: Name and Date of confirmed by patient verbally and Name and Date of confirmed by identification band. FALL SCREENING: Has the patient had 2 falls in the last year or 1 fall with injury or currently using an Ambulatory Assistive Device (Walker, Cane, Wheelchair, Crutches, etc.)? No PATIENT GENDER DATA: Female. status: : No status: NO. PATIENT RELEVANT IMPLANT DATA REVIEWED: Yes RADIOLOGY DEPARTMENT: CT; Exam(s) Completed: Abdomen/Pelvis and Chest PERIPHERAL IV DATA: Site assessment: Clean,Dry and Intact, Site disposition Discontinued SIGNED BY: RT Micha(R) March 26, 2022 3:41 PM documented in this encounter [facility] 03-16-2022 History of Present illness Narrative Staging CT scans ordered. WIll route to Dr. Mayorga's RN coordinator to assist with scheduling. Encounter Diagnosis ICD-10-CM 1. 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 Other intra-abdominal and pelvic swelling, mass and lump R19.09 CT ABD/PEL W IVCON CT CHEST W IVCON Brandee Ramos APRN.DIRECTOR OF MARKETING ANALYTICS documented in this encounter [facility] 03-13-2022 Miscellaneous Notes Called patient regarding the following incoming message. Did advise that stone analysis order will be placed and she can go to any [facility] lab to drop that off. Also advised that an US order will be placed as well to assess current stone status since she has passed some. Provided patient with scheduling line number to schedule US, and have results to review with Dr. Boyce on 04/07. Patient voiced understanding. Arely Obregon RN March 13, 2022 1:48 PM ----- Message from Deyanira Cardona sent at 03/13/2022 1:03 PM EST ----- Regarding: Drop of Stones at Lab Contact: Pt called- seen Dr. Boyce 02/11/21, pt states passed some stones and wants to know will Dr. Boyce place an order for her to drop the stones off at the lab, pt has an appt scheduled with Dr. Boyce for 04/07/22. Please advise documented in this encounter [facility] 03-13-2022 History of Present illness Narrative Images from the original note were not included. [facility] SE[facility] FOR MINIMALLY INVASIVE GYNECOLOGIC SURGERY OUTPATIENT VISIT DATE 03/13/2022 OUTPATIENT VISIT TYPE POST OPERATIVE FOLLOW UP History: Kaya Arce is a 36 year old female here for post operative follow up appointment. She underwent Total laparoscopic hysterectomy, right salpingectomy, right ovarian cystectomy, extensive lysis of bladder adhesions, left ureterolysis, excision of bowel lesion. Dr. Alvarado performed flexible sigmoidoscopy on 02/10/2022 indicated for endo. She reports feeling well since her procedure. Her appetite is normal . She describes her pain as no pain presently. She is currently taking nothing for pain control. She has not had sexual intercourse since the procedure. Denies nausea/vomiting/chest pain/shortness of breath. Ambulating well. No issues with voiding or BMs. -She noted dark brown discharge yesterday, no active bleeding -Feeling some pelvic pressure -Reports a very difficult postop course. -Did present to ED on 03/06 for lower pelvic pain and fevers. CT normal aside from 5 cm ovary. WBC 7 and was discharged home. Operative findings included: Anterior cul-de-sac- obliterated with dense adhesions from bladder to uterus Posterior cul-de-sac- normal Left ovarian fossa- normal Right ovarian fossa- normal Uterosacral ligaments- normal Uterus- 12 weeks, boggy suggestive of adenomyosis, densely adhered to bladder fallopian tubes and ovaries- Right hydrosalpinx, right ovary 5cm with multiple physiologic cysts measuring 0.5 to 2cm; ovarian cystectomy performed of 2cm cyst Bowel and Appendix- normal appearing appendix, normal bowel on sigmoidoscopy. A 2cm dark yellow mass noted on rectosigmoid colon, suspect torsed epiploica Diaphragmatic peritoneum- normal appearing On cystoscopy, bilateral ureteral jets patent as indicated by strong jets of urine from ureteral ostia and intact bladder urothelium, normal urinary trigone. Blood tinged urine secondary to stents. The pathology report reveals: A. Peritoneum, bowel lesion, biopsy - Clusters of low-grade serous epithelial cells (see comment) B. Fallopian tube, right, salpingectomy - Fimbriated fallopian tube with no significant abnormality C. Uterus and cervix, total laparoscopic hysterectomy - Cervix: No significant abnormality - Endometrium: Proliferative endometrium - Myometrium: Leiomyoma, 1 cm - Serosa: Serosal adhesions D. Ovary, right, cystectomy - Follicular cyst ROS: Constitutional: Denies fever or chills GI: Denies abdominal pain, nausea, vomiting, bloody stools or diarrhea : Denies dysuria Integument: Denies rash Psychiatric: Denies depression or anxiety Exam: Vitals: There were no vitals filed for this visit. @HTWT@ There is no height or weight on file to calculate BMI. Neuro/psych: Alert and oriented x 3 in a pleasant mood Skin: Warm, dry and intact Abdomen: Soft, non tender, non distended, no hepatosplenomegaly or hernias. Incision: well healed Pelvic: VV Assessment: Ms. Kaya Arce is a 36 year old female presenting for postop check status post Total laparoscopic hysterectomy, right salpingectomy, right ovarian cystectomy, extensive lysis of bladder adhesions, left ureterolysis, excision of bowel lesion. Dr. Alvarado performed flexible sigmoidoscopy. She reports doing well without current concerns.Notes some vaginal brown spotting, but within range of normal. Pelvic pain has resolved now that she has passed renal stones. Pathology discussed and surgical details reviewed. Educated re: The pathology report reveals: A. Peritoneum, bowel lesion, biopsy - Clusters of low-grade serous epithelial cells (see comment) Discussed recommendation of staging CT scans and follow up with Dr. Mayorga Plan: -Will order staging CT scans and follow up w Dr. Mayorga -May continue to increase physical activity as tolerated -May resume intercourse 8 weeks postop -If bleeding increases, gush of fluid, pt will call office -Refrain from heavy lifting for 4 weeks postop -Follow up with general provider for annual care -All questions answered and pt agrees with plan This is a virtual visit. It required patient-provider interaction for the medical decision making as documented below. The patient verbally consented to a Virtual Visit with telephone back up as necessary. Scribe Attestation: By signing my name below, I, Koki Gonzalez, attrupa that this documentation has been prepared under the direction and in the presence of Dr. Hellen Thomas DO. Electronically Signed:nubia Williamson, March 09, 2022 5:19 PM Hellen Thomas DO, MS Section of Minimally Invasive Gynecologic Surgery 03/13/2022 5:19 PM documented in this encounter [facility] 03-02-2022 History of Present illness Narrative POSTOP VIRTUAL VISIT DATE OF SERVICE: March 01, 2022 PROBLEM: Kaya Arce presents for postop virtual visit. SURGERY & DATE: 02/10/22 Total laparoscopic hysterectomy, right salpingectomy, right ovarian cystectomy, extensive lysis of bladder adhesions, left ureterolysis, excision of bowel lesion. Dr. Alvarado performed flexible sigmoidoscopy PATHOLOGY: FINAL DIAGNOSIS A. Peritoneum, bowel lesion, biopsy - Clusters of low-grade serous epithelial cells (see comment) B. Fallopian tube, right, salpingectomy - Fimbriated fallopian tube with no significant abnormality C. Uterus and cervix, total laparoscopic hysterectomy - Cervix: No significant abnormality - Endometrium: Proliferative endometrium - Myometrium: Leiomyoma, 1 cm - Serosa: Serosal adhesions D. Ovary, right, cystectomy - Follicular cyst Diagnosis Comment Microscopic examination of the peritoneal biopsy (part A) demonstrates fibroadipose tissue with clusters of epithelial cells arranged in a papillary architectural pattern with mild nuclear atypia and in close association with calcifications. Immunohistochemical stains performed on block A1 demonstrate the lesional cells expressing [place]-8, ER, and MOC-31, with no expression of D2-40, in further support of a serous phenotype and lending no support for mesothelial differentiation. Overall, the histomorphologic and immunophenotypic features are of a low-grade serous epithelial proliferation. Clinical correlation with close clinical follow-up is recommended. Dr. Farideh Card ([facility] Gynecologic Pathology) has reviewed the case and agrees with the diagnosis. Dr. Sonya Pal discussed the findings of the case with Dr. Hellen Thomas by phone on 02/13/2022 at 2:35PM. SUBJECTIVE/INTERVAL HISTORY: Kaya Arce reports that she feels well. No fever or chills. No shortness of breath, cough, or chest pain. No incisional redness, swelling, or drainage. Patient reports that her appetite is good. No abdominal pain, nausea, vomiting, diarrhea, or constipation. Patient reports overall doing okay after surgery. She does report seeing blood in her urine and had passed a kidney stone. Also feels like when she voids, she voids a stream, which then stops, then starts again, and this happens multiple times. Overall symptoms have persisted since passing her stone. She doesn't feel like she fully empties her bladder. Has had this sensation in the past, prior to surgery. Also feels like she can't pass gas, and has to push, she is taking senna for this. Would like to be referred to an water control supervisor for a history of elevated testosterone and skin changes. She saw an water control supervisor before but they are no longer with [facility]. OBJECTIVE: VITALS: Deferred for virtual visit GENERAL: She is alert, oriented, and pleasant. LUNGS: Normal inspiratory effort ASSESSMENT: No diagnosis found. PLAN: 1. Discussed results of pathology and implications with patient. We also reviewed intraoperative procedure and findings at length. Given bowel lesion reported clusters of low-grade epithelial cells, will reach out to Dr. Alvarado re: path for recs/follow up. 2. Discussed that patient's urinary symptoms may be secondary to postoperative pelvic floor dysfunction. She has recently been tested by her PCP and was negative for an infection. If no change in symptoms at time of 6-week follow-up, would recommend referring patient back to physical therapy. 3. Endocrinology referral placed, per patient request 4. Postop restrictions and wound care reviewed. 5. Follow up with Dr. Thomas on 03/18/22. All questions answered. Debbi Ruggiero MD Clinical Fellow, PGY-6 Minimally Invasive Gynecologic Surgery documented in this encounter [facility] 02-25-2022 Miscellaneous Notes Pt had appt to discuss on 02/24/22. Estefani Bowie RN February 25, 2022 1:33 PM Called LVM to call the office Argelia Martinez RN Patient returning phone call. Please call back. Kari Arrieta Attempted to call pt. Lvm to call office back. Informed pt if things have worsened to go to the [facility] or the ED. Provided office number. [employer] message sent. Estefani Bowie RN February 18, 2022 8:27 AM Patient calling in again stating she is in a lot of pain and has difficulty using the bathroom and when she does there is bleeding. Please advise: [phone] Kari Arrieta Patient Kaya Arce of Dr. Thomas. Patient calling stating she is in intense pain since her procedure. She requests a call back today please. Patient can be reached at [phone] Lizeth Richardson documented in this encounter [facility] 02-24-2022 History of Present illness Narrative Images from the original note were not included. [facility] Department [facility] Ben[facility] Gynecology [facility] PATIENT NAME: Kaya Arce DATE: 02/24/2022 Patient Name and verified: Yes Patient Location: [place] This Virtual Visit was completed using My Chart Zoom platform. Chief Complaint CC/REASON FOR DISTANCE HEALTH VISIT: Post Op History of Present Illness: Kaya is a 36 year old who presents for a post op Distance Health visit. SURGERY & DATE: 02/10/22 Laparoscopic hysterectomy, bilateral salpingectomy, excision of endometriosis, ovarian cystectomy, possible oophorectomy, possible bowel shave versus discoid, cystoscopy PATHOLOGY: FINAL DIAGNOSIS A. Peritoneum, bowel lesion, biopsy - Clusters of low-grade serous epithelial cells (see comment) B. Fallopian tube, right, salpingectomy - Fimbriated fallopian tube with no significant abnormality C. Uterus and cervix, total laparoscopic hysterectomy - Cervix: No significant abnormality - Endometrium: Proliferative endometrium - Myometrium: Leiomyoma, 1 cm - Serosa: Serosal adhesions D. Ovary, right, cystectomy - Follicular cyst Diagnosis Comment Microscopic examination of the peritoneal biopsy (part A) demonstrates fibroadipose tissue with clusters of epithelial cells arranged in a papillary architectural pattern with mild nuclear atypia and in close association with calcifications. Immunohistochemical stains performed on block A1 demonstrate the lesional cells expressing [place]-8, ER, and MOC-31, with no expression of D2-40, in further support of a serous phenotype and lending no support for mesothelial differentiation. Overall, the histomorphologic and immunophenotypic features are of a low-grade serous epithelial proliferation. Clinical correlation with close clinical follow-up is recommended. Dr. Farideh Card ([facility]) has reviewed the case and agrees with the diagnosis. Dr. Sonya Pal discussed the findings of the case with Dr. Hellen Thomas by phone on 02/13/2022 at 2:35PM. SUBJECTIVE/INTERVAL HISTORY: Kaya Arce reports that she feels okay. No fever or chills. No shortness of breath, cough, or chest pain. No incisional redness, swelling, or drainage. Patient reports that her appetite is fair, but is experiencing mild nausea. No vomiting, diarrhea, or constipation. See HPI and No gross hematuria, urinary frequency, urinary urgency, or incontinence. -States that her recovery has been rough -States that she has had been experiencing urinary symptoms, saw her PCP, negative for infection. States that they found blood in her urine, PCP states that she had a kidney stone. She was given pyridium and toradol. States that she passed a kidney stone 02/23/2022. -States that she has pain that comes in waves -States that she is experiencing difficulty urinating -States that she occasionally experiences blood in her urine, but is currently taking pyridium so her urine is orange. -States that she has been trying to talk to someone at the office to discuss concerns. Past Medical History: PAST MEDICAL HISTORY Diagnosis Date Abnormal glandular Papanicolaou smear of cervix Abn. Pap smear (cervix) Abnormal maternal glucose tolerance, antepartum 2003 diet controlled Allergic rhinitis, cause unspecified Allergic rhinitis Anal fissure Anal fissure Ankylosis spondylitis Arthritis Asthma Back pain Calculus of kidney 2007 4 stones, followed by Dr. 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 Lipids Father Hypertension Father other (kidney stones) Father other (CHF) Father other (spastic 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) Son Breast Cancer Maternal Grandmother age 90 other (down syndrome) Paternal Uncle Past Surgical History: PAST SURGICAL HISTORY Procedure Laterality Date DELIVERY ONLY 03/29/2003 , low cervical COLONOSCOPY FLX DX W/COLLJ SPEC WHEN PFRMD 03/29/1986 Colonoscopy COLONOSCOPY FLX DX W/COLLJ SPEC WHEN PFRMD 06/20/2014 Colonoscopy CONIZATION CERVIX W/WO D&C RPR ELTRD EXC 03/29/2001 LEEP-Cervix ESWL X1 F SALPINGO-OOPHORECTOMY 08/21/2014 LEFT only PAST SURGICAL HISTORY OF WISDOM TEETH PAST SURGICAL HISTORY OF < 1 yr old bilat inguinal hernia repair REMOVAL GALLBLADDER 2019 SIGMOIDOSCOPY FLX DX W/COLLJ SPEC BR/WA IF PFRMD Sigmoidoscopy, flexible Social History: Social History Tobacco Use Smoking status: Never Smokeless tobacco: Never Vaping Use Vaping Use: Never used Substance Use Topics Alcohol use: Not Currently Drug use: No Allergies: ALLERGIES Allergen Reactions Keflex [Cephalexin] Hives, Anaphylaxis Tolerates amoxicillin Bees Hives, Swelling Cardizem [Diltiazem* Intolerance Spikes BP Doxycycline GI Upset Not able to tolerate due to GI effects Eucalyptus tachycardia close airway Latex Swelling Nitroglycerin Suppo* Tizanidine Mental Status Change Low HR, cold and clammy (subjective only) Allergies updated: Yes Medications: Current Outpatient Medications Medication Sig ibuprofen (MOTRIN) 600 mg tablet Take 1 tablet by mouth every 6 hours. Take with food. oxyCODONE IR (ROXICODONE) 5 mg immediate release tablet Take 1 tablet by mouth every 8 hours as needed for pain. Senna 8.6 mg tab Take 1 tablet by mouth twice daily. acetaminophen (TYLENOL EXTRA STRENGTH) 500 mg tablet Take 2 tablets by mouth every 6 hours. mesalamine (ROWASA) 4 gram/60 mL enema 4 g by RECTAL route daily at bedtime. lidocaine (XYLOCAINE) 5 % ointment Apply to affected area as needed. nystatin (MYCOSTATIN) powder Apply 1 application to affected area twice daily. APPLY TO AFFECTED AREA clascoterone 1 % crea Apply 1 application to affected area twice daily. baclofen vaginal suppository 10 mg (CPD) Unwrap and inserty 1 Suppository vaginally once daily as directed. EPINEPHrine (EPIPEN 2-SINCERE) 0.3 mg/0.3 mL auto-injector Inject 0.3 mL intramuscularly as needed (Inject in thigh as needed for anaphylaxis and call 911). GENERIC OKAY BIOTIN ORAL Take by mouth once daily. cyanocobalamin, vitamin B-12, (VITAMIN B-12 ORAL) Take by mouth. clobetasol (TEMOVATE) 0.05 % ointment Apply to affected area twice daily as needed (for severe flares of the dermatitis on the hands and feet.). For flares on the hands flurandrenolide (CORDRAN) 0.05 % lotion Apply to affected area twice daily. As needed. Clobetasol Propionate (CLOBEX) 0.05 % sham Apply to affected area once daily as needed (for scalp irritation). Apply to dry scalp, leave on for 15 minutes and then wash off. pantoprazole DR (PROTONIX) 40 mg tablet Take 40 mg by mouth once daily. ondansetron orally disintegrating (ZOFRAN ODT) 4 mg disintegrating tablet Take 1 tablet by mouth every 8 hours as needed. atenolol (TENORMIN) 25 mg tablet TAKE 1/2-1 TAB BY MOUTH TWICE A DAY DIRECTED albuterol HFA (PROVENTIL HFA, VENTOLIN HFA) 90 mcg/actuation inhaler Inhale 2 Puffs as instructed. potassium chloride (KLOR-CON 10) 10 mEq tablet Take 2 tablets by mouth once daily. (Patient taking differently: Take 20 mEq by mouth twice daily.) docusate sodium (COLACE) 100 mg capsule Take 100 mg by mouth twice daily as needed. cetirizine 10 mg tablet Take 1 tablet by mouth once daily. MULTI-VITAMIN ORAL Take by mouth once daily. 2 tablets daily No current facility-administered medications for this visit. Medications reviewed in detail and updated PRN. Yes Physical Exam: [facility] 01/16/2022 GENERAL: pleasant, euthymic sounding female in no apparent distress Physical exam otherwise deferred Recent labs/Diagnostic studies: I have thoroughly reviewed this patients previous notes, encounters, labs, and results prior to this visit. Assessment and Plan Encounter Diagnosis ICD-10-CM 1. Post-op pain G89.18 gabapentin (NEURONTIN) 300 mg capsule 1) Discussed results of pathology and implications with patient.- Dr. Thomas messaged regarding pathology results. 2) Postop restrictions and wound care reviewed. 3) Gabapentin sent to patient's local pharmacy to assist with pelvic pain relief. Advised patient to continue taking ibuprofen as needed as well as oxycodone for breakthrough pain. Explained R/B/A and how to take. 4) Discussed with patient that if she continues to experience worsening urinary symptoms, that she should be seen in the emergency department. 5) Virtual appointment on 03/02/[address] Ruggiero to further discuss post op concerns and pathology. 6) Keep follow up with Dr. Thomas on 03/18/2022. - Patient verbalized agreement to the plan of care. Appointments for Next 60 Days Date Time Provider Location Dept Phone 02/24/2022 10:30 AM LLUVIA MANJARREZ A [facility] [phone] 03/02/2022 12:30 PM DEBBI RUGGIERO A [facility] [phone] 03/18/2022 12:00 PM HELLEN THOMAS A [facility] [phone] SIGNATURE: Lluvia Manjarrez APRN.CNP documented in this encounter [facility] 02-09-2022 History of Present illness Narrative COLORECTAL SURGERY VIRTUAL VISIT FOLLOW UP I had a virtual visit with Ms. Arce today for follow up of endometriosis. UPDATED HISTORY: Kaya Arce is a 36 year old female with endometriosis here today to discuss upcoming surgery with INSTITUTION DIRECTOR/CORS on 02/10. PHYSICAL FINDINGS OF NOTE: General - Normal, healthy, cooperative, in no acute distress Able to interact verbally by video conference Pulmonary - respiratory effort normal Abdominal - Performed Flat, Visible protrusions or hernias: No Incisions/scars: None, Areas of pain/tenderness: denies Motor - patient seen sitting with Normal appearing strength and coordination Anorectal exam - Not Performed Medical Decision Making: Assessment Assessment & Diagnosis: Kaya Arce is a 36 year old female Data Reviewed: Tests & Documents Reviewed/ordered: Review of prior notes from Gynecology Review of prior operative reports Review of Pathology Review of Imaging: CT Abdomen, CT Pelvis, MRI Pelvis Review of Labs: CBC I have independently interpreted: CT Abdomen, CT Pelvis, MRI Pelvis I have discussed Kaya Arce's treatment plan and/or results with patient, gyne. Treatment plan: Resection endometriosis with gynecology I have confirmed and edited as necessary, the PFSH and ROS obtained by others. Riaz Alvarado DO, FACS, FASCRS Colorectal Surgery Risk of morbidity, mortality and/or complications of treatment plan: high I spent a total of 30 minutes on the date of the service which included preparing to see the patient, [id number] patient care, completing clinical documentation, obtaining and/or reviewing separately obtained history, performing a medically appropriate examination, counseling and educating the patient/family/caregiver, ordering medications, tests, or procedures, communicating with other HCPs (not separately reported), independently interpreting results (not separately reported), communicating results to the patient/family/caregiver, and care coordination (not separately reported). documented in this encounter [facility] 02-09-2022 Miscellaneous Notes Called patient, verified name/. Informed of orders placed for UA and urine culture. Patient will go to [facility] today to leave a sample. Discussed that Bactrim was sent to local pharmacy to begin taking after leaving a sample. Will discuss bowel prep in detail with Dr. Alvarado at this afternoon. Patient verbalizes understanding and is agreeable to the plan. Elayne Lay RN February 09, 2022 10:57 AM UA and culture ordered for patient to have completed at [facility]. Empirically treat with Bactrim, one tablet BID for 7 days while waiting for UA and culture results. Will stop or adjust treatment based on results. The following approved medication requests have been transmitted electronically. Requested Prescriptions Signed Prescriptions Disp Refills sulfamethoxazole-trimethoprim (BACTRIM DS) 800-160 mg per tablet 14 tablet 0 Sig: Take 1 tablet by mouth twice daily for 7 days. Authorizing Provider: NATASHA MCINTOSH Ordering User: LLUVIA MANJARREZ Pharmacy Information Pharmacy Address [facility]phone [id number] [place] [address] Lluvia Manjarrez APRN.MARY February 09, 2022 10:49 AM Called patient, verified name/ Patient is scheduled for combo surgery with Dr. Thomas and Dr. Alvarado tomorrow 02/10/2022. Patient reports that few the past couple of days she has had symptoms of UTI/kidney stone. She reports that last night she had difficulties starting a stream of urine and emptying completely. This morning she noted that when she wiped she noted red blood with mucus. Denies blood on her underwear. Reports cramps in her right lower pelvis. She denies burning with urination, urgency, and frequency. She notes that with her INSTITUTION DIRECTOR issues she finds it difficult to differentiate between the two. [facility] office is close to her. Routing to [facility]. Elayne Lay RN February 09, 2022 10:36 AM Patient: Kaya Arce : 1985 Caller: Patient Caller Phone #: [phone] (home) [phone] (cell) Reason for call: Patient calling with concern that she has bleeding, she is unsure if it's vaginal bleeding or urinary? Pt scheduled for a combo surgery tomorrow with Dr Thomas & Dr Alvarado. Pt also has a questions about her bowel prep she has to take. documented in this encounter [facility] 02-06-2022 Miscellaneous Notes Received last office visit from 11/10/21 from [facility]. Copy made for Sigrid Kiran CNP and original sent to bull chain operator to scan. Tamika Shaver LPN Fax request sent to [facility] requesting office visit. Tamika Shaver LPN Images from the original note were not included. Sigrid Kiran APRN.MARY Shavre LPN Can we get cardiac records from [facility], pt states she is seen there for hx afib. DOS 02/10/2022 documented in this encounter [facility] 01-26-2022 History of Present illness Narrative Images from the original note were not included. [facility] SECTION FOR MINIMALLY INVASIVE GYNECOLOGIC SURGERY OUTPATIENT VISIT DATE 01/26/2022 OUTPATIENT VISIT TYPE HISTORY AND PHYSICAL Referring MD: No referring provider defined for this encounter. HPI: Kaya Arce is a 36 year old female patient followed in Minimally Invasive Gynecologic Surgery for preoperative history and physical for upcoming TLH. She has tried PFPT, multiple surgical procedures, patch, NuvaRing, elizabeth, jermaine, sprintec, loestrin, provera, Mirena IUD, AMEYA and has decided she is ready to proceed with another surgical intervention for her condition. Please see note from 12/12/2021 for full details. After thorough discussion of options, she is scheduled for the above described procedure with Dr. Thomas on 02/17/2022. Today reports having heavy periods with clots, then light for one week. She currently has exhaustion and brain fog with her insomnia. States vomiting twice the past couple days and loose bowel movements. Reports she would also be okay with having her appendix and right ovary removed if they're not viable. Her preoperative work up has included the following: MRI FEMALE PELVIS WO/W IVCON 07/29/21: IMPRESSION: Findings of infiltrative endometriosis involving the right pelvic side wall, right ovary and right round ligament. Other foci of fibrosis / suspected infiltrative endometriosis as detailed in the synoptic report. Sigmoid is focally tethered to the right pelvic sidewall/right ovarian lesion with suspected focal muscular involvement. Cecum tetehred to the lesion without definite wall thickening. Thin fibrous tethering to the rectum without muscular invasion. 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 No endometrioma. Adenomyosis. Right sided hydrosalpinx. RESULT: Uterus: Size: 5.9 x 4.9-0.5 cm (5:31 and 3:20)cm postsurgical changes status post section. Orientation: Anteverted Endometrium: Homogeneous signal intensity with no mass measuring 15 mm. Junctional zone: Asymmetric thickening at the left fundus, measuring up to 14 mm (5:31), with cystic spaces/T2 hyperintense foci present. Findings consistent with adenomyosis. Cervix: Nabothian cysts. Leiomyomas: None; Adenomyomas: None Anterior compartment: Bladder: No infiltrative endometriosis. Ureters: No hydronephrosis. Vesicouterine pouch: No endometriosis Vesicovaginal septum: No endometriosis Prevesicular space: No endometriosis Middle Compartment Disease: Ovaries: - Right ovary: Right ovary measures 4.2 x 2.4 x 2.4 cm and is tethered to the right posterolateral uterine body medially. Enhancing fibrotic band, likely infiltrative endometriosis, extending along the right pelvic side wall measures up to 7cm in length (14:30). This involves the sigmoid and cecum (described below), right ovary and right round ligament (described below). - More than a dozen peripherally oriented subcentimeter physiologic follicles present. Crenulated mildly thick-walled cystic lesion in the posterior ovary, compatible with corpus luteal cyst. 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 - Left ovary: Absent Fallopian tubes: Mild to moderate hydrosalpinx on the right (5:24), likely involved by . Uterine ligaments: Focal nodular thickening along the left round ligament (5:29 and 6:10) suspicious for deep infiltrative endometriosis. Nodular thickening at the origin of the right round ligament with some intrinsic T1 hyperintense signal compatible with endometriosis involvement (5:27 and 9:30). Vagina: No endometriosis Posterior compartment disease: Torus uterinus (Uterine body): T2 hypointense thickening along the torus without T1 or T2 hyperintense foci could be compatible with postoperative fibrosis or infiltrative endometriosis related to fibrosis. Retrocervical Space/anterior rectosigmoid wall: Thin, smooth T2 hypointense band extend from the region of the torus, through the retrocervical space and tethered the anterior rectosigmoid (3:19). No definite rectosigmoid muscular invasion. Anterior rectal wall tethered is less than 10% of the rectal circumference. Uterosacral ligament: Diffuse thickening along the left uterosacral ligament either infiltrative endometriosis or post surgical scarring (4:26). Rectovaginal space / septum: Normal Additional bowel lesions present? (Sigmoid colon/ small bowel): - Sigmoid colon is focally tethered to the right pelvic sidewall/right ovarian lesion with possible muscle lesion, involving less than 25% of the circumference (5:25). -The cecum abuts and is tethered (6:6) to the right lateral uterine fundus right ovary and right broad ligament in region of suspected infiltrative endometriosis. No associated cecal wall thickening. -Appendix is not discretely identified but due to proximity to other right abdominal disease is at risk for endometriosis involvement. Additional sites of endometriosis: - No abdominal wall lesions Pelvis free fluid: None Lymph nodes: No lymph nodes enlarged by size criteria. Bones:Normal marrow signal. EMB results: N/A PAST MEDICAL HISTORY Diagnosis Date Abnormal glandular Papanicolaou smear of cervix Abn. Pap smear (cervix) Abnormal maternal glucose tolerance, antepartum 2003 diet controlled Allergic rhinitis, cause unspecified Allergic rhinitis Anal fissure Anal fissure Ankylosis spondylitis Arthritis Asthma Back pain Calculus of kidney 2007 4 stones, followed by Dr. 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 [facility] Renal disease Syncope Unspecified asthma(493.90) PAST SURGICAL HISTORY Procedure Laterality Date DELIVERY ONLY 03/29/2003 , low cervical COLONOSCOPY FLX DX W/COLLJ SPEC WHEN PFRMD 03/29/1986 Colonoscopy COLONOSCOPY FLX DX W/COLLJ SPEC WHEN PFRMD 06/20/2014 Colonoscopy CONIZATION CERVIX W/WO D&C RPR ELTRD EXC 03/29/2001 LEEP-Cervix ESWL X1 F SALPINGO-OOPHORECTOMY 08/21/2014 LEFT only PAST SURGICAL HISTORY OF WISDOM TEETH PAST SURGICAL HISTORY OF < 1 yr old bilat inguinal hernia repair REMOVAL GALLBLADDER 2019 SIGMOIDOSCOPY FLX DX W/COLLJ SPEC BR/WA IF PFRMD Sigmoidoscopy, flexible Current Outpatient Medications on File Prior to Visit Medication Sig nystatin (MYCOSTATIN) powder Apply 1 application to affected area twice daily. APPLY TO AFFECTED AREA clascoterone 1 % crea Apply 1 application to affected area twice daily. Norethindrone, Contraceptive, (ALEX) 0.35 mg tablet Take 1 tablet by mouth once daily. baclofen vaginal suppository 10 mg (CPD) Unwrap and inserty 1 Suppository vaginally once daily as directed. mometasone (NASONEX) 50 mcg/actuation nasal spray Use 2 Sprays in each nostril once daily. EPINEPHrine (EPIPEN 2-SINCERE) 0.3 mg/0.3 mL auto-injector Inject 0.3 mL intramuscularly as needed (Inject in thigh as needed for anaphylaxis and call 911). GENERIC OKAY BIOTIN ORAL Take by mouth once daily. cyanocobalamin, vitamin B-12, (VITAMIN B-12 ORAL) Take by mouth. clobetasol (TEMOVATE) 0.05 % ointment Apply to affected area twice daily as needed (for severe flares of the dermatitis on the hands and feet.). For flares on the hands flurandrenolide (CORDRAN) 0.05 % lotion Apply to affected area twice daily. As needed. [DISCONTINUED] ISOtretinoin (ACCUTANE) 20 mg capsule Take 1 capsule by mouth once daily. Clobetasol Propionate (CLOBEX) 0.05 % sham Apply to affected area once daily as needed (for scalp irritation). Apply to dry scalp, leave on for 15 minutes and then wash off. pantoprazole DR (PROTONIX) 40 mg tablet Take 40 mg by mouth once daily. ondansetron orally disintegrating (ZOFRAN ODT) 4 mg disintegrating tablet Take 1 tablet by mouth every 8 hours as needed. atenolol (TENORMIN) 25 mg tablet TAKE 1/2-1 TAB BY MOUTH TWICE A DAY DIRECTED albuterol HFA (PROVENTIL HFA, VENTOLIN HFA) 90 mcg/actuation inhaler Inhale 2 Puffs as instructed. potassium chloride (KLOR-CON 10) 10 mEq tablet Take 2 tablets by mouth once daily. docusate sodium (COLACE) 100 mg capsule Take 100 mg by mouth twice daily as needed. cetirizine 10 mg tablet Take 1 tablet by mouth once daily. MULTI-VITAMIN ORAL Take by mouth once daily. 2 tablets daily No current facility-administered medications on file prior to visit. ALLERGIES Allergen Reactions Keflex [Cephalexin] Hives, Anaphylaxis Tolerates amoxicillin Bees Hives, Swelling Cardizem [Diltiazem* Intolerance Spikes BP Doxycycline GI Upset Not able to tolerate due to GI effects Eucalyptus tachycardia close airway Flexeril [Cyclobenz* Mental Status Change Made patient feel worse than before Latex Swelling Minocycline GI Upset Nitroglycerin Suppo* Tizanidine Mental Status Change Low HR, cold and clammy (subjective only) Vicodin [Hydrocodon* Itching Immunization History Administered Date(s) Administered COVID-19 original vaccine, age 12+ yr, monovalent ([employer] - PURPLE TOP) 07/03/2020 Social History Social History Narrative Single 1 son age 2 Lives in [facility] with son, from [facility] 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 Lipids Father Hypertension Father other (kidney stones) Father other (CHF) Father other (spastic 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) Son Breast Cancer Maternal Grandmother age 90 other (down syndrome) Paternal Uncle OB History T1 L1 SAB0 IAB0 Ectopic0 Multiple0 Live Births1 OB History T1 L1 SAB0 IAB0 Ectopic0 Multiple0 Live Births1 Patient's last menstrual period was 09/07/2021. Review of Systems: Constitutional: Denies fever or chills Eyes: Denies change in visual acuity HENT: Denies nasal congestion or sore throat Respiratory: Denies cough or shortness of breath Cardiovascular: Denies chest pain or edema GI: Denies abdominal pain, nausea, vomiting, bloody stools or diarrhea : Denies dysuria Musculoskeletal: Denies back pain or joint pain Integument: Denies rash Neurologic: Denies headache, focal weakness or sensory changes Endocrine: Denies polyuria or polydipsia Lymphatic: Denies swollen glands Psychiatric: Denies depression or anxiety Physical Exam: There were no vitals filed for this visit. @HTWT@ There is no height or weight on file to calculate BMI. General Appearance: WDWN, NAD Psychiatric: Normal orientation, mood and affect Neck: Thyroid normal, no masses Breasts: Deferred Skin:No rashes, lesions, or ulcers Lymph: Normal neck, cervical, groin, and axillae C/V: Normal heart sounds, no murmurs or external edema Lungs: Respiratory effort normal. Lungs clear bilaterally. Abdomen: Benign, soft, non-tender, no hernia, masses, or lymphadenpathy Pelvic examination: Vulva/Perineum: Normal Urethra: No mass, tenderness or diverticulum Bladder:normal Vagina: no erythema, no ulcerations and no vaginal discharge Cervix: normal Uterus: 14 week size, boggy, tender to palpation, likely adhered to anterior abdominal wall Adnexae: No palpable mass, no cysts, no tenderness Bimanual: No anterior vaginal wall tenderness, mod levator obturator tenderness, severe cul de sac and uterosacral tenderness Rectal: Not done Assessment and Care Plan: Kaya Arce is a 36 year old with symptomatic endo who has tried or refused conservative therapies and would like to proceed with surgical management in the form of TLH/BS, ovarian cystectomy vs oophorectomy, excision of , possible laparotomy (<1%), possible bowel shave vs discoid, scheduled with Dr. Thomas and Dr. Alvarado on 02/17/2022. 1) Preoperative preparation: The following orders were placed during this encounter: No orders of the defined types were placed in this encounter. The patient was not advised to see her primary care physician to obtain medical clearance prior to surgery. She was not given instructions to complete a bowel prep the day before surgery. Her resuscitative status is full code. Transfusions: She has not had a blood transfusion in the past. She would accept a blood transfusion if medically necessary. 2) Postoperative expectations and instructions were reviewed, including pain management needs and options, and prescriptions were provided. The patient's primary goal of surgery is: relief of pain. She was counseled that most women undergoing this procedure do not stay overnight after surgery. Her partner will be available to help her recover at home in the weeks following surgery. She was given the postoperative instructions outlined at the bottom of this note. 3) She has comorbid medical conditions including NA. 4) CONSENT: The risks, benefits and alternatives as well as the indications of her planned surgery were reviewed with the patient today. Risks including but not limited to the following were outlined in detail: Bleeding rarely requiring blood transfusion with the associated risk of viral transmission of Hepatitis 1/700,000, HIV 1/2,000,000. The risks and benefits of autologous blood transfusion with predonation were also discussed. Infection requiring antibiotics, potential prolonged or re-hospitalization as well as possible re-operation. Damage to adjacent organs including but not limited to: bladder, bowels, ureters (tubes that connect kidneys to bladder), pelvic organs (ovaries, fallopian tubes, uterus or womb), blood vessels and nerves, with the possibility of re-operation. Medical complications associated with surgery and anesthesia including but not limited to: deep vein thromobosis (DVT, or blood clot in the leg), pulmonary embolus (PE, blood clot in the lungs), heart attack, stroke, or . All questions were answered to the patient s satisfaction and the informed consent as well as consent for blood transfusion was signed today. The risks and benefits of autologous blood transfusion were also reviewed and the patient has declined this option. The risks, benefits and alternatives of the planned procedure have been discussed with the patient and/or her legal junior sales representative, all questions have been answered and she agrees to proceed. Scribe Attestation: By signing my name below, I, Koki Gonzalez, attest that this documentation has been prepared under the direction and in the presence of Dr. Hellen Thomas DO. Electronically Signed:nubia Williamson, January 25, 2022 6:12 PM Hellen Thomas DO, MS Section of Minimally Invasive Gynecologic Surgery 01/26/2022 6:12 PM documented in this encounter [facility] 12-31-2021 History of Present illness Narrative Images from the original note were not included. Department of Dermatology Petar Dennis MD 12/31/2021 Last visit in Dermatology: 09/30/2021 Objective/Assessment/Plan 1. Acne vulgaris Head - Anterior (Face) Open and closed comedones, with inflammatory papules/pustules Scattered excoriated Patient has tried and failed multiple treatments for adult acne on the face. Seems to be hormonally driven. Has used spironolactone orally, but caused bleeding which was difficult to stop. The patient was judged to be intolerant to the medication. clascoterone 1 % crea - Head - Anterior (Face) Apply 1 application to affected area twice daily. 2. Seborrheic keratosis Left Suprapubic Area Hyperkeratotic, variably hyperpigmented, stuck on papule. Benign and observe. Refilled nystatin for intertrigo. Under breasts, not currently active. For now, add bactrim ds twice daily x10 days for acute scabbed lesions on the face and scalp. Follow-up as noted below or as needed. Chief Complaint: Patient presents with: Follow Up Subjective and Objective No flowsheet data found. HPI: Kaya Arce is a 36 year old female who presents for: Feels clobetasol ointment helps skin peeling Overall, not much better since last visit - cycles of healing and getting worse Feels she has a mixture of itchy bumps - similar to hives and acne Medications irritating to skin Feels there may be a hormonal correlation. Upcoming hysterectomy Past medical history is reviewed. Medication list is reviewed. Physical Exam included: face and abdomen Intake information obtained by Argelia Mantilla Ma 12/31/21 1:17 PM MARTHA Canseco Attending signature: TEACHING PHYSICIAN NOTE OF PERSONAL INVOLVEMENT IN CARE: I have personally seen and examined the patient and performed the medical decision-making components. I have reviewed the medical student documentation and verified the findings in the note as written. Any additions or changes are noted in bold/italics. In addition, as applicable, I agree with the Chief Complaint, ROS, and Past Histories independently gathered by the clinical underwriting support specialist and the remaining scribed note accurately describes my personal service to the patient. Signature: Petar Dennis Date: 12/31/2021 Time: 1:44 PM documented in this encounter [facility] 12-12-2021 History of Present illness Narrative Images from the original note were not included. [facility] SECTION FOR MINIMALLY INVASIVE GYNECOLOGIC SURGERY OUTPATIENT VISIT DATE 12/12/2021 OUTPATIENT VISIT TYPE ESTABLISHED PRIMARY CARE PHYSICIAN: Rudy Branch [address] [place], [place] [id number] CHIEF COMPLAINT: Endo, CPP HISTORY OF PRESENT ILLNESS: Kaya Arce is a pleasant 36 year old female who presents for management of Endo and is concerned about future surgery. She has a PMHx significant for Abnormal pap smear, anal fissure, crohn's disease, cardiac arrhythmia, fibromyalgia, HTN, IC, diaphragmatic hernia, lupus, lyme disease, PCOS, renal disease, obesity (BMI 34), asthma. PSHx CS (pfann), conization, LSO, bilateral inguinal hernia repair as , diagnostic l/s, l/s excision of endo, R cystectomy, cholecystectomy.. She was last seen in clinic on 09/08/2021. At that time, she presented for follow up with management of endo. The plan at her last visit included: - Booking request for TLH/BS, ovarian cystectomy vs oophorectomy, cysto, excision of endo, possible laparotomy (<1%), possible bowel shave vs discoid - CORS consult placed - Consents signed today Pt currently scheduled for TLH/BS, ex of on 02/17/22 at [facility]. S/p consult w Dr. Alvarado on 10/10/21 Treatment plan: Ok to proceed with endometriosis surgery Will get colonoscopy and GI notes History of ?IBD that seems to be well controlled Pt reports episode of intense pelvic pain 2 weeks ago. Presented to local ED in [place]. Performed CT and US which revealed right adnexa 5cm. She went to [facility] and saw Dr. Davis to see if she could get surgery sooner. Dr. Davis offered surgery at the end of the month. She said he told her her surgery would be 2 hours, straight forward, and all of her pain would be gone. Presents today to see if her surgery can be moved up. IMAGING/LABS: MRI FEMALE PELVIS WO/W IVCON 07/29/21: IMPRESSION: Findings of infiltrative endometriosis involving the right pelvic side wall, right ovary and right round ligament. Other foci of fibrosis / suspected infiltrative endometriosis as detailed in the synoptic report. Sigmoid is focally tethered to the right pelvic sidewall/right ovarian lesion with suspected focal muscular involvement. Cecum tetehred to the lesion without definite wall thickening. Thin fibrous tethering to the rectum without muscular invasion. 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 No endometrioma. Adenomyosis. Right sided hydrosalpinx. RESULT: Uterus: Size: 5.9 x 4.9-0.5 cm (5:31 and 3:20)cm postsurgical changes status post section. Orientation: Anteverted Endometrium: Homogeneous signal intensity with no mass measuring 15 mm. Junctional zone: Asymmetric thickening at the left fundus, measuring up to 14 mm (5:31), with cystic spaces/T2 hyperintense foci present. Findings consistent with adenomyosis. Cervix: Nabothian cysts. Leiomyomas: None; Adenomyomas: None Anterior compartment: Bladder: No infiltrative endometriosis. Ureters: No hydronephrosis. Vesicouterine pouch: No endometriosis Vesicovaginal septum: No endometriosis Prevesicular space: No endometriosis Middle Compartment Disease: Ovaries: - Right ovary: Right ovary measures 4.2 x 2.4 x 2.4 cm and is tethered to the right posterolateral uterine body medially. Enhancing fibrotic band, likely infiltrative endometriosis, extending along the right pelvic side wall measures up to 7cm in length (14:30). This involves the sigmoid and cecum (described below), right ovary and right round ligament (described below). - More than a dozen peripherally oriented subcentimeter physiologic follicles present. Crenulated mildly thick-walled cystic lesion in the posterior ovary, compatible with corpus luteal cyst. 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 - Left ovary: Absent Fallopian tubes: Mild to moderate hydrosalpinx on the right (5:24), likely involved by . Uterine ligaments: Focal nodular thickening along the left round ligament (5:29 and 6:10) suspicious for deep infiltrative endometriosis. Nodular thickening at the origin of the right round ligament with some intrinsic T1 hyperintense signal compatible with endometriosis involvement (5:27 and 9:30). Vagina: No endometriosis Posterior compartment disease: Torus uterinus (Uterine body): T2 hypointense thickening along the torus without T1 or T2 hyperintense foci could be compatible with postoperative fibrosis or infiltrative endometriosis related to fibrosis. Retrocervical Space/anterior rectosigmoid wall: Thin, smooth T2 hypointense band extend from the region of the torus, through the retrocervical space and tethered the anterior rectosigmoid (3:19). No definite rectosigmoid muscular invasion. Anterior rectal wall tethered is less than 10% of the rectal circumference. Uterosacral ligament: Diffuse thickening along the left uterosacral ligament either infiltrative endometriosis or post surgical scarring (4:26). Rectovaginal space / septum: Normal Additional bowel lesions present? (Sigmoid colon/ small bowel): - Sigmoid colon is focally tethered to the right pelvic sidewall/right ovarian lesion with possible muscle lesion, involving less than 25% of the circumference (5:25). -The cecum abuts and is tethered (6:6) to the right lateral uterine fundus right ovary and right broad ligament in region of suspected infiltrative endometriosis. No associated cecal wall thickening. -Appendix is not discretely identified but due to proximity to other right abdominal disease is at risk for endometriosis involvement. Additional sites of endometriosis: - No abdominal wall lesions Pelvis free fluid: None Lymph nodes: No lymph nodes enlarged by size criteria. Bones:Normal marrow signal. Past Medical History: PAST MEDICAL HISTORY Diagnosis Date Abnormal glandular Papanicolaou smear of cervix Abn. Pap smear (cervix) Abnormal maternal glucose tolerance, antepartum 2003 diet controlled Allergic rhinitis, cause unspecified Allergic rhinitis Anal fissure Anal fissure Ankylosis spondylitis Arthritis Asthma Back pain Calculus of kidney 2007 4 stones, followed by Dr. 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 [facility] Renal disease Syncope Unspecified asthma(493.90) Past Surgical History: PAST SURGICAL HISTORY Procedure Laterality Date DELIVERY ONLY 03/29/2003 , low cervical COLONOSCOPY FLX DX W/COLLJ SPEC WHEN PFRMD 03/29/1986 Colonoscopy COLONOSCOPY FLX DX W/COLLJ SPEC WHEN PFRMD 06/20/2014 Colonoscopy CONIZATION CERVIX W/WO D&C RPR ELTRD EXC 03/29/2001 LEEP-Cervix ESWL X1 F SALPINGO-OOPHORECTOMY 08/21/2014 LEFT only PAST SURGICAL HISTORY OF WISDOM TEETH PAST SURGICAL HISTORY OF < 1 yr old bilat inguinal hernia repair REMOVAL GALLBLADDER 2019 SIGMOIDOSCOPY FLX DX W/COLLJ SPEC BR/WA IF PFRMD Sigmoidoscopy, flexible Family History: FAMILY HISTORY Problem Relation Age of Onset Prostate Cancer Maternal Grandfather Cancer Maternal Grandfather leukemia other (parkinsons) Maternal Grandfather Coronary Artery Disease Paternal Grandfather 69 suddenly Diabetes Paternal Grandmother Lipids Mother Osteoporosis Mother Heart disease Mother CAD and stent at age 71. Lipids Father Hypertension Father other (kidney stones) Father other (CHF) Father other (spastic 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) Son Breast Cancer Maternal Grandmother age 90 other (down syndrome) Paternal Uncle Social History: Social History Tobacco Use Smoking status: Never Smokeless tobacco: Never Vaping Use Vaping Use: Never used Substance Use Topics Alcohol use: No Comment: Seldom Drug use: No Current Outpatient Medications Medication Sig peg 3350-Electrolytes (GOLYTELY) 236-22.74-6.74 -5.86 gram suspension Refer to printed prep instructions from your provider. tacrolimus (PROTOPIC) 0.1 % ointment Apply to affected area twice daily. mometasone (NASONEX) 50 mcg/actuation nasal spray Use 2 Sprays in each nostril once daily. EPINEPHrine (EPIPEN 2-SINCERE) 0.3 mg/0.3 mL auto-injector Inject 0.3 mL intramuscularly as needed (Inject in thigh as needed for anaphylaxis and call 911). GENERIC OKAY BIOTIN ORAL Take by mouth once daily. cyanocobalamin, vitamin B-12, (VITAMIN B-12 ORAL) Take by mouth. clobetasol (TEMOVATE) 0.05 % ointment Apply to affected area twice daily as needed (for severe flares of the dermatitis on the hands and feet.). For flares on the hands nystatin (MYCOSTATIN) powder Apply 1 application to affected area twice daily. APPLY TO AFFECTED AREA Surgical Lubricant Jelly gel For MRI Female Pelvis, MRI department to provide. Administer intra-vaginal Surgilube immediately prior the MRI procedure (total amount to patient toleranace). (Patient not taking: Reported on 09/08/2021 ) flurandrenolide (CORDRAN) 0.05 % lotion Apply to affected area twice daily. As needed. Clobetasol Propionate (CLOBEX) 0.05 % sham Apply to affected area once daily as needed (for scalp irritation). Apply to dry scalp, leave on for 15 minutes and then wash off. Cholestyramine-Aspartame (CHOLESTYRAMINE LIGHT) 4 gram powder Start with 1 g 2-3x/week; and increase to 1g daily; and then to 1 g 2x/day with meals and if ok use 3x/day with meal pantoprazole DR (PROTONIX) 40 mg tablet Take 40 mg by mouth once daily. ondansetron orally disintegrating (ZOFRAN ODT) 4 mg disintegrating tablet Take 1 tablet by mouth every 8 hours as needed. atenolol (TENORMIN) 25 mg tablet TAKE 1/2-1 TAB BY MOUTH TWICE A DAY DIRECTED albuterol HFA (VENTOLIN HFA) 90 mcg/actuation inhaler Inhale 2 Puffs as instructed. potassium chloride (KLOR-CON 10) 10 mEq tablet Take 2 tablets by mouth once daily. docusate sodium (COLACE) 100 mg capsule Take 100 mg by mouth twice daily as needed. cetirizine 10 mg tablet Take 1 tablet by mouth once daily. MULTI-VITAMIN ORAL Take by mouth once daily. 2 tablets daily No current facility-administered medications for this visit. Allergies As of Date: 12/12/2021 Allergen Noted Reaction KEFLEX [CEPHALEXIN] 05/09/2002 Hives and Anaphylaxis BEES 06/18/2010 Hives and Swelling CARDIZEM [DILTIAZEM HCL] 05/30/2018 Intolerance DOXYCYCLINE 09/26/2008 GI Upset EUCALYPTUS 06/07/2007 FLEXERIL [CYCLOBENZAPRINE] 04/28/2012 Mental Status Change LATEX 08/15/2008 Swelling MINOCYCLINE 03/07/2008 GI Upset NITROGLYCERIN SUPPOSITORIES [OTHE*01/31/2008 TIZANIDINE 12/04/2010 Mental Status Change VICODIN [HYDROCODONE-ACETAMINOPHE* 1 Itching Fully Assessed 10/10/2021 REVIEW OF SYSTEMS: POSITIVES IN BOLD Constitutional: Denies fever or chills Eyes: Denies change in visual acuity HENT: Denies nasal congestion or sore throat Respiratory: Denies cough or shortness of breath Cardiovascular: Denies chest pain or edema GI: Denies abdominal pain, nausea, vomiting, bloody stools or diarrhea : Denies dysuria Musculoskeletal: Denies back pain or joint pain Integument: Denies rash Neurologic: Denies headache, focal weakness or sensory changes Endocrine: Denies polyuria or polydipsia Lymphatic: Denies swollen glands Psychiatric: Denies depression or anxiety PHYSICAL EXAMINATION: Vital Signs: There were no vitals filed for this visit. There is no height or weight on file to calculate BMI. General appearance: Well appearing, alert, in no acute distress, well-hydrated, well nourished. Skin: Skin color, texture, turgor normal, no suspicious rashes or lesions Abdomen: Normal abdominal exam, Abdomen soft, non-tender. Bowel sounds normal. No masses, organomegaly see below IMPRESSION: Ms. Arce is a 35 year old female who presents today with chronic pelvic pain, endometriosis. Primary symptoms include pelvic pain. She does not desire uterine preservation. History of multiple l/s revealing severe pelvic adhesions. She has a co-case scheduled with myself and Dr. Alvarado on 02/17/22 for TLH/BS, ex of , ovarian cystectomy vs oophorectomy, cystoscopy, bowel shave vs discoid Discussed surgical plan in detail Discussed Kier Pleater Onc vs. MIGS performing future surgery. Educated that we do recommend complete removal of for stage IV endo. Educated that ovarian preservation is likely possible. She only has 1 ovary left and does not do well w HRT and desires preservation if possible. Discussed options to assist w pain until surgery date. Discussed hormonal suppression. Discussed progestin only options. Did well w aygestin in the past, but had severe constipation. Desires to try lower dose. Offered vaginal baclofen to assist w pelvic floor spasm. PLAN: -Rx POP -Consents sent today -vaginal baclofen Rx -Desires to continue to have surgery with myself and Dr. Alvarado; desires sooner OR date if possible 1) Preoperative preparation: The following orders were placed during this encounter: No orders of the defined types were placed in this encounter. The patient was not advised to see her primary care physician to obtain medical clearance prior to surgery. She was given instructions to complete a bowel prep the day before surgery. Her resuscitative status is full code. Transfusions: She has not had a blood transfusion in the past. She would accept a blood transfusion if medically necessary. 2) Postoperative expectations and instructions were reviewed, including pain management needs and options, and prescriptions were provided. The patient's primary goal of surgery is: relief of pain. She was counseled that most women undergoing this procedure do not stay overnight after surgery. Her partner will be available to help her recover at home in the weeks following surgery. She was given the postoperative instructions outlined at the bottom of this note. 3) She has comorbid medical conditions including stage IV endo. 4) CONSENT: The risks, benefits and alternatives as well as the indications of her planned surgery were reviewed with the patient today. Risks including but not limited to the following were outlined in detail: Bleeding rarely requiring blood transfusion with the associated risk of viral transmission of Hepatitis 1/700,000, HIV 1/2,000,000. The risks and benefits of autologous blood transfusion with predonation were also discussed. Infection requiring antibiotics, potential prolonged or re-hospitalization as well as possible re-operation. Damage to adjacent organs including but not limited to: bladder, bowels, ureters (tubes that connect kidneys to bladder), pelvic organs (ovaries, fallopian tubes, uterus or womb), blood vessels and nerves, with the possibility of re-operation. Medical complications associated with surgery and anesthesia including but not limited to: deep vein thromobosis (DVT, or blood clot in the leg), pulmonary embolus (PE, blood clot in the lungs), heart attack, stroke, or . All questions were answered to the patient s satisfaction and the informed consent as well as consent for blood transfusion was signed today. The risks and benefits of autologous blood transfusion were also reviewed and the patient has declined this option. The risks, benefits and alternatives of the planned procedure have been discussed with the patient and/or her legal junior sales representative, all questions have been answered and she agrees to proceed. Written and verbal health teaching given to patient, patient verbalizes understanding and agrees with treatment plan. Medical Decision Making: Problems: Moderate: 2+ stable chronic illnesses Data: Independent interpretation of test from other physician/QHCP Risk: High: Decision on elective major surgery w/ risk factors Medical Decision Making Level: 4 - Moderate This is a virtual visit. It required patient-provider interaction for the medical decision making as documented below. The patient verbally consented to a Virtual Visit with telephone back up as necessary. I personally interviewed, confirmed and edited the above information if obtained by others. Scribe Attestation: By signing my name below, Koki Colón, attest that this documentation has been prepared under the direction and in the presence of Dr. Hellen Thomas DO. Electronically Signed:nubia Williamson, December 12, 2021 1:10 AM Provider Attestation: I, Dr. Hellen Thomas personally performed the services described in this documentation. All medical record entries made by the scribe were at my direction and in my presence. I have reviewed the chart and discharge instructions (if applicable) and agree that the record reflects my personal performance and is accurate and complete. Dr. Hellen Thomas DO December 12, 2021, documented in this encounter [facility] 11-28-2021 Miscellaneous Notes Patient reaching out to schedule surgery. Patient states she has left a couple voicemails but has not heard back. Please contact patient: [phone] Kari Arrieta documented in this encounter [facility] 11-11-2021 Miscellaneous Notes Patient: Kaya Arce : 1985 Caller: patient Caller Phone #: [phone] (home) [phone] (cell) Reason for call: patient calling wanting to know if both surgeons have been able to connect about her combo surgery? Date of last visit: 09/08/2021 Date of next visit: Visit date not found documented in this encounter [facility] 10-10-2021 Instructions Elizabeth Nichols MD - 10/10/2021 11:44 AM EDT Images from the original note were not included. Bowel Preparation Instructions for: Golytely, Nulytely, Trilyte or Colyte (polyethylene glycol 3350 and electrolytes) IF YOU DO NOT FOLLOW THESE DIRECTIONS, YOUR COLONOSCOPY WILL BE CANCELLED. Cameron Instructions: Your bowel must be empty so that your doctor can clearly view your colon. Follow all of the instructions in this handout EXACTLY as they are written. Do NOT eat any solid food the ENTIRE day before your colonoscopy. Drink only clear liquids. Buy your bowel preparation at least 5 days before your colonoscopy. TRANSPORTATION on the Day of Your Exam A responsible person MUST be present with you at Check In prior to your colonoscopy and REMAIN in the endoscopy area until you are discharged. You are NOT ALLOWED to drive, take a taxi or bus, or leave the Endoscopy Center ALONE. If you do not have a responsible van driver (family member or friend) with you to take you home, your exam cannot be done with sedation and will be cancelled. Please bring a list of all of your current medications, including any Over-the Counter medications with you. Medications If you take insulin, diabetic medications or blood thinners such as Coumadin (warfarin), Plavix (clopidogrel), Ticlid (ticlopidine hydrochloride), Agrylin (anagrelide), Xarelto (Rivaroxaban), Pradaxa (Dabigatran), Eliquis (Apixaban), and Effient (Prasugrel). You MUST call the doctors who orders those medicines for instructions on altering the dosage before your colonoscopy. All other medications should be taken the day of the exam with a sip of water including ASPIRIN. Five (5) Days Before Your Colonoscopy Do NOT take medicines that stop diarrhea - such as Imodium, Kaopectate, or Pepto Bismol. Do NOT take fiber supplements - such as Metamucil, Citrucel, or Perdiem. Do NOT take products that contain iron - such as multi-vitamins (the label lists what is in the products). Do NOT take Vitamin E. Buy the prescription bowel preparation solution at your local pharmacy or drugstore pharmacy. 02/2019 Bowel Preparation Instructions for: Golytely, Nulytely, Trilyte or Colyte (polyethylene glycol 3350 and electrolytes) Three (3) Days Before Your Colonoscopy Do NOT eat high-fiber foods - such as popcorn, beans, seeds (flax, sunflower, quinoa), multigrain bread, nuts, salad/vegetables, or fresh and dried fruit. One (1) Day Before Your Colonoscopy Only drink clear liquids the ENTIRE DAY before your colonoscopy. Do NOT eat any solid foods. Drink at least 8 ounces of clear liquids every hour after waking up. The clear liquids you can drink include: Clear Liquid (NO RED LIQUIDS) DO NOT DRINK Gatorade, Pedialyte or Powerade Clear broth or bouillon Coffee or tea (no milk or non-dairy creamer) Carbonated and non-carbonated soft drinks Emeka-Aid or other fruit flavored drinks Strained fruit juices (no pulp) Jell-O, popsicles, hard candy Water Alcohol Milk or non-dairy creamers Noodles or vegetables in soup Juice with pulp Liquid you cannot see through The bowel preparation solution will be consumed in two parts. Mix the solution the evening before your colonoscopy and refrigerate before drinking. You may add the flavor pack that came with the bowel preparation. Do NOT add ice, sugar or any other flavorings to the solution. Part 1 At 6:00 PM - Evening before your colonoscopy Drink an 8-oz glass of bowel preparation every 10 minutes for a total of 8 glasses. You may continue to drink clear liquids until midnight. Part 2 On the day of your colonoscopy you may drink clear liquids up to (three) 3 hours before your procedure. 4 1/2 hours before your colonoscopy Drink an 8-oz glass of bowel preparation every 10 minutes for a total of 8 glasses. Fifteen (15) minutes later, drink an 8-oz glass of clear liquids every 15 minutes for a total of 2 glasses. You may continue to drink clear liquids up to (three) 3 hours before your exam. 2 02/2019 documented in this encounter [facility] 10-10-2021 History and physical note COLORECTAL SURGERY New Patient Visit October 08, 2021 Chief Complaint: endometriosis History of Present Illness: Kaya Arce is a 36 year old female here today to be evaluated for Colorectal surgery for Endometriosis. She has been having bowel iissues for long time. She has a lot of bloating and epigastric pain. 3 years ago she had a fissure and had a hemorrhoid removed (Valeri Hurst Ma). She has had gastric reflux. Last colonoscopy was in 2019 - stated colon was achy . She has mostly diarrhea. She states when she was young she was diagnosed with IBD. States her bottom looks rough. She has had elevated elevated calprotectin. She has been on budesonide in the past (past year) 07/29/21 MRI FEMALE IMPRESSION: Findings of infiltrative endometriosis involving the right pelvic side wall, right ovary and right round ligament. Other foci of fibrosis / suspected infiltrative endometriosis as detailed in the synoptic report. Sigmoid is focally tethered to the right pelvic sidewall/right ovarian lesion with suspected focal muscular involvement. Cecum tetehred to the lesion without definite wall thickening. Thin fibrous tethering to the rectum without muscular invasion. 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 No endometrioma. Adenomyosis. Right sided hydrosalpinx. PAST MEDICAL HISTORY Diagnosis Date Abnormal glandular Papanicolaou smear of cervix Abn. Pap smear (cervix) Abnormal maternal glucose tolerance, antepartum 2003 diet controlled Allergic rhinitis, cause unspecified Allergic rhinitis Anal fissure Anal fissure Ankylosis spondylitis Arthritis Asthma Back pain Calculus of kidney 2007 4 stones, followed by Dr. 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 Renal disease Syncope Unspecified asthma(493.90) PAST SURGICAL HISTORY Procedure Laterality Date DELIVERY ONLY 03/29/2003 , low cervical COLONOSCOPY FLX DX W/COLLJ SPEC WHEN PFRMD 03/29/1986 Colonoscopy COLONOSCOPY FLX DX W/COLLJ SPEC WHEN PFRMD 06/20/2014 Colonoscopy CONIZATION CERVIX W/WO D&C RPR ELTRD EXC 03/29/2001 LEEP-Cervix ESWL X1 F SALPINGO-OOPHORECTOMY 08/21/2014 LEFT only PAST SURGICAL HISTORY OF WISDOM TEETH PAST SURGICAL HISTORY OF < 1 yr old bilat inguinal hernia repair REMOVAL GALLBLADDER 2019 SIGMOIDOSCOPY FLX DX W/COLLJ SPEC BR/WA IF PFRMD Sigmoidoscopy, flexible Current Outpatient Medications Medication Sig Dispense Refill tacrolimus (PROTOPIC) 0.1 % ointment Apply to affected area twice daily. 30 g 3 mometasone (NASONEX) 50 mcg/actuation nasal spray Use 2 Sprays in each nostril once daily. 17 g 3 EPINEPHrine (EPIPEN 2-SINCERE) 0.3 mg/0.3 mL auto-injector Inject 0.3 mL intramuscularly as needed (Inject in thigh as needed for anaphylaxis and call 911). GENERIC OKAY 2 Each 3 BIOTIN ORAL Take by mouth once daily. cyanocobalamin, vitamin B-12, (VITAMIN B-12 ORAL) Take by mouth. clobetasol (TEMOVATE) 0.05 % ointment Apply to affected area twice daily as needed (for severe flares of the dermatitis on the hands and feet.). For flares on the hands 60 g 0 nystatin (MYCOSTATIN) powder Apply 1 application to affected area twice daily. APPLY TO AFFECTED AREA 60 g 1 flurandrenolide (CORDRAN) 0.05 % lotion Apply to affected area twice daily. As needed. 120 mL 1 Clobetasol Propionate (CLOBEX) 0.05 % sham Apply to affected area once daily as needed (for scalp irritation). Apply to dry scalp, leave on for 15 minutes and then wash off. 118 mL 3 Cholestyramine-Aspartame (CHOLESTYRAMINE LIGHT) 4 gram powder Start with 1 g 2-3x/week; and increase to 1g daily; and then to 1 g 2x/day with meals and if ok use 3x/day with meal [address] (PROTONIX) 40 mg tablet Take 40 mg by mouth once daily. ondansetron orally disintegrating (ZOFRAN ODT) 4 mg disintegrating tablet Take 1 tablet by mouth every 8 hours as needed. 40 Each 1 atenolol (TENORMIN) 25 mg tablet TAKE 1/2-1 TAB BY MOUTH TWICE A DAY DIRECTED 0 albuterol HFA (VENTOLIN HFA) 90 mcg/actuation inhaler Inhale 2 Puffs as instructed. potassium chloride (KLOR-CON 10) 10 mEq tablet Take 2 tablets by mouth once daily. 60 tablet 11 docusate sodium (COLACE) 100 mg capsule Take 100 mg by mouth twice daily as needed. cetirizine 10 mg tablet Take 1 tablet by mouth once daily. 30 tablet 3 MULTI-VITAMIN ORAL Take by mouth once daily. 2 tablets daily Surgical Lubricant Jelly gel For MRI Female Pelvis, MRI department to provide. Administer intra-vaginal Surgilube immediately prior the MRI procedure (total amount to patient toleranace). (Patient not taking: Reported on 09/08/2021 ) 12 g 0 No current facility-administered medications for this visit. ALLERGIES Allergen Reactions Keflex [Cephalexin] Hives, Anaphylaxis Tolerates amoxicillin Bees Hives, Swelling Cardizem [Diltiazem* Intolerance Spikes BP Doxycycline GI Upset Not able to tolerate due to GI effects Eucalyptus tachycardia close airway Flexeril [Cyclobenz* Mental Status Change Made patient feel worse than before Latex Swelling Minocycline GI Upset Nitroglycerin Suppo* Tizanidine Mental Status Change Low HR, cold and clammy (subjective only) Vicodin [Hydrocodon* Itching Review of Systems / PACC screen: Do you have difficulty climbing a full flight of stairs without feeling short of breath? yes Do you require oxygen for your breathing or have your gone to an emergency department because of breathing problems? no Are you on dialysis or have you been told that your kidneys do not work well as they should? yes Do have an implanted cardiac device (pacemaker, defibrillator etc.) that has not been checked in the last 6 months? no Have you had an organ transplant? no Have you been told that you had excessive bleeding during surgical procedures or do you take blood thinning medications other than aspirin? yes during surgical procedures Have you ever had a heart attack, heart stents/surgery, valve problems, or other heart problems? yes patient has POTS Have you had a stroke, seizures, or unexplained loss of consciousness? no Do you have a neurologic condition like Parkinson's disease or multiple sclerosis? no Have you or a blood relative had a life-threatening reaction to anesthesia? no Do you have cirrhosis of the liver or other liver disease? yes fatty liver Have you had a blood clot within the past year? no Do you take insulin or other injections for diabetes? no Do you have sleep apnea or have you been told you may have sleep apnea? yes Do you have other implanted devices (deep brain stimulator, spinal cord stimulator, etc.)? no Physical Exam: Ht 157.5 cm (5' 2 ) Wt 85.3 kg (188 lb) LMP 09/07/2021 BMI 34.39 kg/m General Appearance: Well appearing, alert, in no acute distress, well-hydrated, well nourished. Lungs: Lungs clear to auscultation. No wheezing, rhonchi, rales. Heart: regular Edema: no Abdomen: Normal abdominal exam, Abdomen soft, non-tender. Bowel sounds normal. No masses, organomegaly Anorectal: Normal Digital Rectal Exam: Deferred Assessment Medical Decision Making: Assessment & Diagnosis: Kaya Arce is a 36 year old female with endometriosis, hx of bloody diarrhea. Data Reviewed: Tests & Documents Reviewed/ordered: Review of prior operative reports Review of Imaging: CT Abdomen, CT Pelvis Review of Labs: CBC, BMP Review of Procedures / Tests: Colonoscopy Assessment by: Caregiver I have independently interpreted: CT Abdomen, CT Pelvis I have discussed Kaya Arce's treatment plan and/or results with her. Treatment plan: Ok to proceed with endometriosis surgery Will get colonoscopy and GI notes History of ?IBD that seems to be well controlled. Riaz Alvarado DO, FACS, FASCRS Colorectal Surgery Attending Note I evaluated the patient and personally participated in the cameron components. I agree with the resident's findings and plan as documented and have discussed the case and management of the patient's care with the resident. Signature: Riaz Alvarado DO Date: 10/21/2021 Time: 11:14 AM Colorectal Surgery Risk of morbidity, mortality and/or complications of treatment plan: high documented in this encounter [facility] 10-07-2021 Miscellaneous Notes Signed Prescriptions Disp Refills tacrolimus (PROTOPIC) 0.1 % ointment 30 g 3 Sig: Apply to affected area twice daily. RUBIO: No Authorizing Provider: PETAR DENNIS Received prior authorization denial for tacrolimus 0.1% ointment via fax from [employer]. coverage is provided when the member does NOT exceed 30 grams within a 26 day period . Please advise. Fax received from pharmacy requesting prior authorization be completed for tacrolimus 0.1% ointment. ePA initiated and submitted. Will await determintation. documented in this encounter [facility] 10-02-2021 History of Present illness Narrative PULM FUNCTION SMARTBLOCK: Provider: Karen Doshi MD Spirometry: 1 Exhaled Nitric Oxide: 1 documented in this encounter [facility] 10-02-2021 Procedure note Associated Order(s): NITRIC OXIDE, EXHALED RESPIRATORY THERAPY ORAL EXHALED NITRIC OXIDE SERVICE DATE: 10/02/2021 SERVICE TIME: 12:58 PM Oral Exhaled Nitric Oxide measurement: 19.0 (ppb) Normal: Adult 5-20 ppb, pediatric (<12 years) 5-15 ppb High Normal / Increased: Adult 20-35 ppb, pediatric (<12 years) 15-25 ppb Moderately raised exhaled Nitric Oxide may indicate underlying inflammation, but note that: Cold and influenza can raise exhaled Nitric Oxide and some patients have higher baseline exhaled Nitric Oxide levels than others. High: Adult >35 ppb, pediatric (<12 years) >25 ppb Indicative of ongoing eosinophilic inflammation. Symptomatic patient likely to respond to steroids. Possible causes (if already on steroids): Poor compliance, recent allergen exposure, steroid dose inadequate, and steroid resistance. Note that not all patients with high exhaled nitric oxide levels display symptoms. Oral Exhaled Nitric Oxide measurement (Previous Encounters) Test Date Oral Exhaled Nitric Oxide (ppb) 10/02/2021 19.0 NAME: Argelia Holden MA PATIENT NAME: Kaya Arce DATE: October 02, 2021 TIME: 12:58 PM documented in this encounter [facility] 10-02-2021 History of Present illness Narrative Hydrocortisone 2.5 % cream applied to positive skin test reactions per doctor's order. Patient instructed regarding inhalant allergen avoidance measures; written information given. Nikki Leos RN INHALANT 40 PERCUTANEOUS & INTRADERMAL TESTING/ Mean Wheal & Flare Diameter (mm) Patient has been identified by name and date of : Yes . Skin test applied by : Nikki Leos RN Interpreted By: Karen Doshi M.D. * Clinical significant reactions are regarded as a wheal diameter greater than or equal to 3 mm with a flare diameter greater or equal to 6mm. ALLERGENS Time applied: 1052 Time read: 1107 1. Negative Control: 50%Glycerin/50%Cocas P: W = 0 mm F = 3 mm 2. Cat Hair 10,000 BAU/ml P: W = 0 mm F = 3 mm 3. Dog Epithelial 1:20 P: W = 0 mm F = 3 mm 4. Cockroach Mix 1:20 P: W = 0 mm F = 3 mm 5. Mite Df 10,000 AU/ml P: W = 0 mm F = 3 mm 6. Mite Dp 10,000AU/ml P: W = 0 mm F = 4 mm 7. Alternaria Alternata 1:20 P: W = 0 mm F = 3 mm 8. Aspergillus Fumigatus 1:20 P: W = 0 mm F = 3 mm 9. Cladosporium sphearospermum 1:20 P: W = 0 mm F = 3 mm 10. Epicoccum Nigrum 1:10 P: W = 0 mm F = 3 mm 11. Fusarium Solani 1:40 P: W = 0 mm F = 3 mm 12. Bipolaris Sorokiniana 1:20 P: W = 0 mm F = 3 mm 13. Penicillium Mix 1:20 P: W = 0 mm F = 3 mm 14. Aidan, White 1:20 P: W = 0 mm F = 3 mm 15. Beech, Palestinian 1:20 P: W = 0 mm F = 3 mm 16. Birch Mix 1:20 P: W = 0 mm F = 3 mm 17. Maple Mix 1:20 P: W = 0 mm F = 3 mm 18. Gulliver ,Eastern 1:20 P: W = 0 mm F = 3 mm 19. Elm, Palestinian 1:20 P: W = 0 mm F = 3 mm 20. Motley, Shagbark 1:20 P: W = 0 mm F = 3 mm 21. [place] Tree, Red 1:20 P: W = 0 mm F = 3 mm 22. [place], Red 1:20 P: W = 0 mm F = 3 mm 23. [place], Palestinian/Eastern 1:20 P: W = 0 mm F = 3 mm 24. [place] Pollen, Black 1:20 P: W = 0 mm F = 3 mm 25. Oakwood, Black 1:20 P: W = 0 mm F = 3 mm 26. [place] Grass 10,000 BAU/ml P : W = 0 mm F = 3 mm 27. [place], Blue/August 100,000 BAU/ml P: W = 0 mm F = 3 mm 28. Fescue, Ava 100,000 BAU/ml P: W = 0 mm F = 3 mm 29. Robel Grass 1:20 P: W = 0 mm F = 3 mm 30. Orchard Grass 100,000 BAU/ml P: W = 0 mm F = 4 mm 31. Perennial [place], 100,000 BAU/ml P: W = 0 mm F = 3 mm 32. [place] 100,000 BAU/ml P: W = 0 mm F = 3 mm 33. Cocklebur 1:20 P: W = 0 mm F = 3 mm 34. [place], sheep 1:20 P: W = 0 mm F = 3 mm 35. Plantain, Polish 1:20 P: W = 0 mm F = 3 mm 36. Lambs Quarters 1:20 P: W = 0 mm F = 3 mm 37. [place] Elder, Burweed 1:20 P: W = 0 mm F = 3 mm 38. Pigweed, Rough 1:20 P: W = 0 mm F = 3 mm 39. Ragweed, Mix 1:20 P: W = 0 mm F = 3 mm 40. HISTAMINE, positive control(Histamine base 6mg/ml) P: W = 7 mm F = 9 mm INTRADERMAL MIXES Time applied: 1132 Time read: 1147 1. Negative Control - HSA ID: W = 3 mm F= 0 mm 2. Cat Hair 100 BAU/ml ID: W = 3 mm F= 0 mm 3. Dog Epithelia 1:250 ID: W = 3 mm F= 0 mm 4. Mite DF 30 AU/ml ID: W = 3 mm F= 5 mm 5. Mite DP 30 AU/ml ID: W = 3 mm F= 5 mm 6. Alternaria Alternata 1:250 ID: W = 7 mm F= 20 mm 7. Cladosporium Sphaerospermum 1:250 ID: W = 3 mm F= 0 mm 8. Tree Mix, Eastern Tree 1:500 ID: W = 4 mm F= 0 mm 9. Grasses Mix, K-O-T 1000 BAU/ml ID: W = 4 mm F= 0 mm 10. Special Grass Mix 1000 BAU/ml ID: W = 4 mm F= 0 mm 11. Ragweed Mix, 1:500 ID: W = 4 mm F= 0 mm 12. Special [place] Mix 1:500 ID: W = 4 mm F= 0 mm ANTIBIOTIC PERCUTANEOUS AND INTRADERMAL SKIN TESTING/ Mean Wheal & Flare Diameter (mm) Patient has been identified by name and date of : Yes . Skin test applied by : Nikki Leos RN Interpreted By: Karen Doshi M.D. * Clinical significant reactions are regarded as a wheal diameter greater than or equal to 3 mm with a flare diameter greater or equal to 6mm. Time Prick test applied: 1052 Time Intradermal test applied: 1132 Time Prick test read: 1107 Time Intradermal test read: 1147 ALLERGENS 1. CONTROL Normal Saline P: W = 0 mm F = 3 mm ID:W = 3 mm F = 0 mm 2. CEFAZOLIN SODIUM (ANCEF) 20mg/ml Lot #: [id number]; exp : 03/2022 P: W = 0 mm F = 3mm ID: W = 3 mm F = 0 mm 3. HISTAMINE- positive control (Histamine base 6mg/ml)for Prick and 0.1 mg/ml for intradermal P: W = 7 mm F = 9 mm Images from the original note were not included. [facility] ALLERGY & IMMUNOLOGY CONSULT Patient Name: Kaya Arce PRIMARY CARE PHYSICIAN: Rudy Branch DO REASON FOR CONSULT: Allergies and asthma REQUESTING PHYSICIAN: Petar Dennis MD My final recommendations will be communicated to the requesting health care provider by way of the shared medical record for internal providers or letter via the [employer] for external providers. CHIEF COMPLAINT: Allergies and Asthma HISTORY OF PRESENT ILLNESS: Kaya Arce is a 36 year old female, Ht 157.5 cm (5' 2 ) BMI 34.39 kg/m2, with a history of worsened asthma and rhinitis symptoms since COVID infection. She also notes that her skin has been much more sensitive. She has complained of drainage fairly frequently and triggered by change in temperature as well as fragrance. She had undergone allergy evaluation in 2007 by Juani Briseno. At that point in time her skin test was negative. Her asthma was sports induced in her teenage years and was fairly quiet for a number of years up until most recent infection. She has needed albuterol 2-3 times per week. She notes that this is also triggered by change in position especially when lying flat. She has struggled with POTS symptoms notes frequent dizziness and syncope. She has seen cardiology in [place] for this. She had history of anaphylaxis from stinging insect at age 3. Type of insect was not identified but presumed to be either a bee or yellowjacket. She notes having a generalized hives difficulty breathing and was hospitalized and does not recall anything for the 48 hours around that timeframe. She does not currently carry an EpiPen notes having reactions to eucalyptus with contact with her skin triggering anaphylactic-like symptoms. She had hives and trouble breathing after taking Keflex for a number of years ago. She has tolerated amoxicillin and has struggled overall with antibiotics in general causing stomach upset. Environmental history: Pets in the home: 2 cats, 1 dogs danette dockery Jaime: mixed jaime Air conditioning: Central air Heating: Forced hot air Basement: Dry basement Occupation: Not working since 2018 due to syncopal episodes/ POTS PAST MEDICAL HISTORY Diagnosis Date Abnormal glandular Papanicolaou smear of cervix Abn. Pap smear (cervix) Abnormal maternal glucose tolerance, antepartum 2003 diet controlled Allergic rhinitis, cause unspecified Allergic rhinitis Anal fissure Anal fissure Ankylosis spondylitis Arthritis Asthma Back pain Calculus of kidney 2007 4 stones, followed by Dr. 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 Renal disease Syncope Unspecified asthma(493.90) ACTIVE PROBLEM LIST Uncomplicated Asthma Chronic Rhinitis Dysmetabolic Syndrome X IBS (IRRITABLE BOWEL SYNDROME) Anal Fissure Benign Neoplasm of Colon Esophageal Reflux Deviated Nasal Septum Polycystic Ovaries Impaired Fasting Glucose Unspecified Thrombosed Hemorrhoids Personal History of Cervical Dysplasia Anxiety State, Unspecified Previous Delivery, Antepartum Condition Or Complication Hidradenitis Kidney Stones Acne Vulgaris: Inflammatory Grade III to IV Scars: Acne and Excoriation--related Primary Focal Hyperhidrosis Contact Dermatitis and Other Eczema, Due to Unspecified Cause Folliculitis Pain in Joint, Lower Leg Headache(784.0) Inflammatory Back Pain Adrenal Insufficiency (Hcc) Muscle Spasm Kidney Stone Lyme Disease Seborrheic Dermatitis Calculus of Ureter Monilial Vulvovaginitis Migraine Without Aura, With Intractable Migraine, So Stated, Without Mention of Status Migrainosus Microhematuria Flank Pain Female Stress Incontinence Menstrual Irregularity Palpitations Anorectal Polyp Lumbosacral Neuritis Gross Hematuria History of Kidney Stones Straining On Urination Hesitancy Difficulty Voiding Chronic Pelvic Pain in Female Endometriosis Obesity, Class I, Bmi 30-34.9 Bulging of lumbar intervertebral disc Fibromyalgia Essential Hypertension Chronic Midline Low Back Pain Without Sciatica Trochanteric Bursitis of Both Hips Pcos (Polycystic Ovarian Syndrome) Diarrhea Medullary Sponge Kidney of Both Kidneys Epigastric Pain Status Post Cholecystectomy Pots (Postural Orthostatic Tachycardia Syndrome) Chronic Interstitial Cystitis With Hematuria Urgency Incontinence Feeling of Incomplete Bladder Emptying Acute Cystitis With Hematuria Family History of Gout Family History of Nephrolithiasis Seasonal Allergies Allergic Conjunctivitis, Bilateral Anaphylaxis Due to Hymenoptera Venom Allergic Urticaria Allergy to Cephalosporin Mild Persistent Asthma Latex Allergy Status PAST SURGICAL HISTORY Procedure Laterality Date DELIVERY ONLY 03/29/2003 , low cervical COLONOSCOPY FLX DX W/COLLJ SPEC WHEN PFRMD 03/29/1986 Colonoscopy COLONOSCOPY FLX DX W/COLLJ SPEC WHEN PFRMD 06/20/2014 Colonoscopy CONIZATION CERVIX W/WO D&C RPR ELTRD EXC 03/29/2001 LEEP-Cervix ESWL X1 F SALPINGO-OOPHORECTOMY 08/21/2014 LEFT only PAST SURGICAL HISTORY OF WISDOM TEETH PAST SURGICAL HISTORY OF < 1 yr old bilat inguinal hernia repair REMOVAL GALLBLADDER 2020 SIGMOIDOSCOPY FLX DX W/COLLJ SPEC BR/WA IF PFRMD Sigmoidoscopy, flexible FAMILY HISTORY Problem Relation Age of Onset Prostate Cancer Maternal Grandfather Cancer Maternal Grandfather leukemia other (parkinsons) Maternal Grandfather Coronary Artery Disease Paternal Grandfather 69 suddenly Diabetes Paternal Grandmother Lipids Mother Osteoporosis Mother Heart disease Mother CAD and stent at age 71. Lipids Father Hypertension Father other (kidney stones) Father other (CHF) Father other (spastic 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) Son Breast Cancer Maternal Grandmother age 90 other (down syndrome) Paternal Uncle Social History Tobacco Use Smoking status: Never Smoker Smokeless tobacco: Never Used Vaping Use Vaping Use: Never used Substance Use Topics Alcohol use: No Comment: Seldom Drug use: No ALLERGIES: ALLERGIES Allergen Reactions Keflex [Cephalexin] Hives, Anaphylaxis Tolerates amoxicillin Bees Hives, Swelling Cardizem [Diltiazem* Intolerance Spikes BP Doxycycline GI Upset Not able to tolerate due to GI effects Eucalyptus tachycardia close airway Flexeril [Cyclobenz* Mental Status Change Made patient feel worse than before Latex Swelling Minocycline GI Upset Nitroglycerin Suppo* Tizanidine Mental Status Change Low HR, cold and clammy (subjective only) Vicodin [Hydrocodon* Itching CURRENT OUTPATIENT MEDICATIONS: BIOTIN ORAL Take by mouth once daily. cyanocobalamin, vitamin B-12, (VITAMIN B-12 ORAL) Take by mouth. tacrolimus (PROTOPIC) 0.1 % ointment Apply to affected area twice daily. clobetasol (TEMOVATE) 0.05 % ointment Apply to affected area twice daily as needed (for severe flares of the dermatitis on the hands and feet.). For flares on the hands nystatin (MYCOSTATIN) powder Apply 1 application to affected area twice daily. APPLY TO AFFECTED AREA flurandrenolide (CORDRAN) 0.05 % lotion Apply to affected area twice daily. As needed. Clobetasol Propionate (CLOBEX) 0.05 % sham Apply to affected area once daily as needed (for scalp irritation). Apply to dry scalp, leave on for 15 minutes and then wash off. Cholestyramine-Aspartame (CHOLESTYRAMINE LIGHT) 4 gram powder Start with 1 g 2-3x/week; and increase to 1g daily; and then to 1 g 2x/day with meals and if ok use 3x/day with meal pantoprazole DR (PROTONIX) 40 mg tablet Take 40 mg by mouth once daily. ondansetron orally disintegrating (ZOFRAN ODT) 4 mg disintegrating tablet Take 1 tablet by mouth every 8 hours as needed. atenolol (TENORMIN) 25 mg tablet TAKE 1/2-1 TAB BY MOUTH TWICE A DAY DIRECTED albuterol HFA (VENTOLIN HFA) 90 mcg/actuation inhaler Inhale 2 Puffs as instructed. potassium chloride (KLOR-CON 10) 10 mEq tablet Take 2 tablets by mouth once daily. docusate sodium (COLACE) 100 mg capsule Take 100 mg by mouth twice daily as needed. cetirizine 10 mg tablet Take 1 tablet by mouth once daily. MULTI-VITAMIN ORAL Take by mouth once daily. 2 tablets daily Surgical Lubricant Jelly gel For MRI Female Pelvis, MRI department to provide. Administer intra-vaginal Surgilube immediately prior the MRI procedure (total amount to patient toleranace). [DISCONTINUED] ISOtretinoin (ACCUTANE) 20 mg capsule Take 1 capsule by mouth once daily. REVIEW OF SYSTEMS: HEENT: sinus trouble RESPIRATORY: asthma , wheezing and dyspnea CONSTITUTIONALl: No acute distress. No weight loss or gain, no fevers or chills CARDIOVASCULAR: negative for chest pain, leg swelling or palpitations. GASTROINTESTINAL: Negative for abdominal discomfort, No blood in stools or black stools MUSCULOSKELETAL: negative for joint pain or swelling, back pain or muscle pain. NEUROLOGIC:Negative for focal numbness or weakness, headaches and dizziness or syncope. DERM/SKIN: no new rashes, hives, or skin eruptions. PSYCHIATRIC: Negative for sleep disturbance, mood disorder and recent psychosocial stressors HEMATOLOGIC/LYMPHATIC/IMMUNOLOGIC:N egative for cold or heat intolerance, polyuria, polydipsia and goiter. PHYSICAL EXAM: BP 108/66 Pulse 69 Temp (Src) 97.4 (Temporal) Resp 22 Ht 5' 2 (1.58m) Wt 188 lb (85.3kg) SpO2 100[Room air]% LMP 09/07/2021 BMI 34.38 kg/(m^2). General appearance: Well appearing, alert, in no acute distress, well-hydrated, well nourished. HENT: Positive findings: R TM: bulging, L TM: bulging Eyes: no scleral icterus, PERRLA, EOMS, no conjunctivitis Nose/Sinuses: Positive findings: mucosa swollen, pale, and boggy, clear rhinorrhea Oropharynx: Lips, mucosa, and tongue normal, teeth and gums normal, oropharynx normal [place] Classification:Class III Respiratory: Lungs clear to auscultation. No wheezing, rhonchi, rales Cardiovascular: RRR without murmur, gallop, or rubs. No ectopy Gastroenterology: normal appearing abdomen on inspection Musculoskeletal: No joint pain, muscle weakness, or impaired gait Integumentary: Negative for lesions, rash, and itching. Psychiatric: Alert and oriented x 3. No mood disorders noted, calm affect. No question data found. No textual results found for the specified procedure(s). Glucose (mg/dL) Date Value 02/11/2021 94 02/11/2021 95 Potassium (mmol/L) Date Value 02/11/2021 4.0 02/11/2021 4.0 Sodium (mmol/L) Date Value 02/11/2021 138 02/11/2021 137 Chloride (mmol/L) Date Value 02/11/2021 102 02/11/2021 102 CO2 (mmol/L) Date Value 02/11/2021 23 02/11/2021 25 Creatinine (mg/dL) Date Value 02/11/2021 0.73 02/11/2021 0.73 BUN (mg/dL) Date Value 02/11/2021 7 02/11/2021 8 Anion Gap (mmol/L) Date Value 02/11/2021 13 02/11/2021 10 Calcium (mg/dL) Date Value 02/11/2021 9.4 02/11/2021 9.4 Protein, Total (g/dL) Date Value 02/11/2021 7.7 Albumin (g/dL) Date Value 02/11/2021 4.3 Bilirubin, Total (mg/dL) Date Value 02/11/2021 0.3 Alkaline Phosphatase (U/L) Date Value 02/11/2021 79 AST (U/L) Date Value 02/11/2021 34 ALT (U/L) Date Value 02/11/2021 34 WBC Date Value Ref Range Status 02/11/2021 7.00 3.70 - 11.00 k/uL Final RBC Date Value Ref Range Status 02/11/2021 4.50 3.90 - 5.20 m/uL Final Hemoglobin Date Value Ref Range Status 02/11/2021 12.2 11.5 - 15.5 g/dL Final Hematocrit Date Value Ref Range Status 02/11/2021 38.5 36.0 - 46.0 % Final MCV Date Value Ref Range Status 02/11/2021 85.6 80.0 - 100.0 fL Final MCH Date Value Ref Range Status 02/11/2021 27.1 26.0 - 34.0 pG Final MCHC Date Value Ref Range Status 02/11/2021 31.7 30.5 - 36.0 g/dL Final RDW-CV Date Value Ref Range Status 02/11/2021 12.7 11.5 - 15.0 % Final Platelet Count Date Value Ref Range Status 02/11/2021 324 150 - 400 k/uL Final MPV Date Value Ref Range Status 02/11/2021 9.8 9.0 - 12.7 fL Final Abs Neut (ANC) Date Value Ref Range Status 07/24/2020 7.78 (H) 1.45 - 7.50 k/uL Final Lymph% Date Value Ref Range Status 07/24/2020 39.0 % Final Abs Lymph Date Value Ref Range Status 07/24/2020 5.52 (H) 1.00 - 4.00 k/uL Final [place]% Date Value Ref Range Status 07/24/2020 6.0 % Final Abs [place] Date Value Ref Range Status 07/24/2020 0.85 <0.87 k/uL Final Abs Eosin Date Value Ref Range Status 07/24/2020 0.00 <0.46 k/uL Final Baso% Date Value Ref Range Status 07/24/2020 0.0 % Final Abs Baso Date Value Ref Range Status 07/24/2020 0.00 <0.11 k/uL Final IgE Date Value Ref Range Status 05/17/2008 170.0 (H) <114 kU/L Final IgG Date Value Ref Range Status 01/01/2020 1,219 700 - 1,600 mg/dL Final IgA Date Value Ref Range Status 07/24/2020 236 70 - 400 mg/dL Final IgM Date Value Ref Range Status 01/01/2020 153 40 - 230 mg/dL Final No follow-ups on file. (J31.0) Chronic rhinitis (primary encounter diagnosis) (J30.2) Seasonal allergies (H10.13) Allergic conjunctivitis, bilateral (T63.481A, T78.2XXA) Anaphylaxis due to hymenoptera venom, accidental or unintentional, initial encounter (L50.0) Allergic urticaria (Z88.1) Allergy to cephalosporin (J45.30) Mild persistent asthma, unspecified whether complicated (Z91.040) Latex allergy status Positive skin testing to dust mites and molds Plan: Reviewed dust mite environmental controls Start on daily nasal steroid Refer to ENT for consideration for turbinate reduction Consider for immunotherapy if refractory to medication and environmental controls Albuterol as needed Send IgE specific testing for hymenoptera species and tryptase EpiPen as needed I spent a total of 60 minutes on the date of the service which included preparing to see the patient, [id number] patient care, completing clinical documentation, performing a medically appropriate examination, counseling and educating the patient/family/caregiver and ordering medications, tests, or procedures. Karen Doshi MD documented in this encounter [facility] 09-30-2021 History of Present illness Narrative Images from the original note were not included. Department of Dermatology Petar Dennis MD 09/30/2021 Last visit in Dermatology: 07/14/2021 Objective/Assessment/Plan 1. Seasonal allergies Other Related Procedures CONSULT TO ALLERGY/IMMUNOLOGY 2. Folliculitis (3) Objective Bilateral Nasal Vestibule, Left Thigh - Anterior, Right Thigh - Anterior: Scattered small 1 mm follicular papules. Nares swab for staph. Begin dermazinc bar daily for prevention of folliculitis as there may be a contribution of pityrosporum. Topical mupirocin in reserve. Other Related Procedures STAPH AUREUS PCR 3. Dermatitis Objective Right Tip of Hallux: Desquamation, dry without vesiculation. Discussed treatment options. Start using tacrolimus ointment twice daily and reserve the clobetasol for flares. Discussed medication use. We discussed the risks, benefits, alternatives, and expected outcomes concerning the prescribed medications. We answered any patient questions regarding these medications and reviewed their use. Follow-up as noted below or as needed. Chief Complaint: Patient presents with: Follow Up: rash, head, foot and thigh Subjective and Objective HPI: Kaya Arce is a 36 year old female who presents for: Follow-up small irritated papules on the trunk and bilateral lower extremities. Present for several years. Waxes and wanes, improved with isotretinoin, but could not tolerate the medication. Has lots of problems tolerating oral medications, some extensive GI history, some possible upcoming surgery. Today, peeling skin is under good control, but digits will intermittently become painful, then desquamate. No inciting factors. No associated symptoms. Has extensive allergies, using zyrtec and benadryl without substantial benefit. Past medical history is reviewed. Medication list is reviewed. Physical Exam included: Bilateral lower extremities, bilateral upper extremities, digits of hands and feet. Intake information obtained by Argelia Mantilla Ma 09/30/21 8:44 AM Attending signature: Petar Dennis MD This note is completed at 2:04 PM on 09/30/2021 and reflects the services provided at the time of the appointment. I agree with the Chief Complaint, ROS, and Past Histories independently gathered by the clinical underwriting support specialist. documented in this encounter [facility] 09-08-2021 Instructions Tamika Salmon - 09/08/2021 12:01 PM EDT Images from the original note were not included. Please visit the following website for the [facility] surgery guide. [email or web address] MINIMALLY INVASIVE GYNECOLOGIC SURGERY (MIGS)/BENIGN GYNECOLOGY CONTACTS: Surgeons: Dr. Alpa Qiu Dr. Hellen Thomas Dr. Gertrudis Barba Dr. Jose Soria Dr. Maci Rodriguez Dr. Fredy Estrada Dr. Mey Mckeon [facility] Nurse Practitioners: Brandee Ramos, OCEANOGRAPHY PROFESSOR.DIRECTOR OF MARKETING ANALYTICS Natasha Mcintosh, OCEANOGRAPHY PROFESSOR.DIRECTOR OF MARKETING ANALYTICS Liliane Templeton, OCEANOGRAPHY PROFESSOR.DIRECTOR OF MARKETING ANALYTICS Lita Iqbal, OCEANOGRAPHY PROFESSOR.DIRECTOR OF MARKETING ANALYTICS Surgery Scheduling Office: Call the day before surgery after 2pm for your surgery arrival time After hours phone number: or toll free Ask the bull chain operator to page the sharepoint web developer conditioner tumbler.' Business hours are Wednesday - Wednesday from 8:00am - 4:30pm. We are closed on weekends and major holidays. PATIENT SURGICAL CHECKLIST NEXT STEPS You and your provider have determined that you are a surgical candidate. Here are the next steps in the process to you being scheduled for your surgery: Your provider will submit the case to the schedulers. You should receive a call within 5 business days from our scheduling team. (If you do not receive a call within 5 days then please call [phone]) Once contacted by the scheduling team, you will work with the project controls scheduler to select a surgical OR date that works for both you and the provider The project controls scheduler will set up all of your Pre-Op appointments, which may include all or some of the following: - Covid Testing - Pre-Op consent appointment w/ your provider - Pre-Op teaching appointment *can be done virtually - Labs - Admit Interview - OnePACC (Anesthesia Clearance) - And any other testing that the provider orders for prior to surgery You will receive a call from the senior power scheduler the day prior to your surgery as to when and where to arrive on the day of your scheduled surgery QUESTIONS: If you have any clinical questions Please contact your provider s office directly. If you have any scheduling questions Please contact the surgery scheduling office at [phone] THANK YOU for choosing the [facility] s [facility] We wish you a speedy recovery and continued good health! PRE-OPERATIVE CHECKLIST: PATIENT INSTRUCTIONS PRIOR TO SURGERY Our guidelines have changed, so please read these instructions carefully. Your surgery may be cancelled if you do not follow these instructions. MY ARRIVAL TIME IS: I have been instructed not to have any solid food to eat after midnight prior to my surgery (this includes no gum, mints, smoking). I am allowed to drink small amounts (up to 12 oz) of clear liquids up until 2 hours prior to my arrival time. Clear liquids include water, fruit juices without pulp, carbonated beverages (i.e. eneida wenceslao), electrolyte beverages (i.e. Gatorade), clear tea and black coffee, clear broth, popsicles and jello. (No milk). No alcohol the day before or day of surgery. I will bring this binder to all pre and post-operative appointments AND day of surgery. MEDICATION STOPPAGE: Unless my surgeon tells me differently, I will STOP THESE MEDICATIONS 7 DAYS PRIOR TO SURGERY: (Motrin/ibuprofen/Naproxen/Aleve/Ad vaughn), Aspirin, vitamin E, herbal medications, diet pills, and llwa-uhi-uxmokcr medications. Tylenol (acetaminophen) is okay. I will not wear jewelry, body piercing(s), makeup, nail latvian, hairpins, or contacts on the day of surgery. I am to leave valuables and money at home or with family members. If I am prescribed inhalers for breathing, I will use them and bring them to the hospital. Medication(s) to be taken on the morning of surgery with a few sips of water: If I am taking any of the following blood thinning medications Aspirin, clopidogrel (Plavix), ticagrelor (Brilinta), prasugrel (Efficient), ticlodipine (Ticlid), warfarin (Coumadin), dibigatran (Pradaxa) or rivaroxaban (Xarelto) - I will discuss whether or not I should stop them before surgery with my surgeon. Discuss medication changes with your flight/transport nurse or primary care physician as well. If I stopped taking my blood-thinning medication, I will ask the surgeon when to resume taking it. If I am an outpatient, a responsible person will drive me home and it was suggested that someone stay with me for 24 hours. I understand that a business applications developer or cabdriver is NOT a responsible caregiver. Patients with diabetes, I will not take my morning diabetes medication (pills) on the morning of surgery. If I am on insulin, someone has gone over those instructions with me for the morning of surgery. I understand if my surgery is delayed, I will notify the check in desk that I have diabetes. See the Diabetic Guidelines Before Surgery in the patient education section. If I have Obstructive Sleep Apnea and use a CPAP/BiPAP machine, I will bring my mask, tubing, and machine with me on the day of surgery. Pain management education material found in Your Surgical Guide was reviewed with me. To find out my arrival time for surgery, I must call my imaging scheduler after 2pm the day before surgery. Pre-operative instructions given by: PREOP INSTRUCTIONS THE DAY OF SURGERY/CHECK IN - Report to DESK - for surgery. A map is located in Your Surgical Guide Book. - The online version of the surgical guide book can be found at: [email or web address] - The address is [address] [place] [address] INFECTION PREVENTION - Please notify your doctor if you have any signs of an infection (i.e. fever, severe cough, nasal congestion, pain with urination, abnormal vaginal discharge, diarrhea, etc). - Your surgeon will let you know if a bowel prep is needed before your surgery. If so, please see the attached instructions. - Shower the night before surgery AND the morning of surgery with Hibiclens (provided by your surgeon). If you are allergic to Hibiclens or unable to obtain the Hibiclens, please wash with antibacterial soap. Wash your body from the neck down, focusing on your abdomen, belly button and external genitalia. Do not forget to scrub any skin folds and creases. - No lotions, oils, creams, or powders after your shower. Underarm deodorant is okay. - No shaving (abdominal or pubic hair) or douching the day before surgery. - You may be asked to apply an antiseptic solution called Chlorhexidine Gluconate (CHG) which will be provided to you on arrival to the preop area. - Hand washing is extremely important in preventing infection (for both you as the patient and for the caregivers). HOSPITALIZATION - Before you leave the hospital, you typically need to be able to eat/drink, urinate, and have your pain controlled with oral medication. Your surgeon or other members of your surgeon s team will discuss any other specific medical issues related to your discharge with you. - Your surgeon may order intermittent compression sleeves. These are massaging leg pumps to help prevent blood clots after surgery. See Your Surgical Guide Book for more information. - It is also very important that you walk as soon as possible and as frequently as possible after surgery. This will help decrease your risk of blood clots, exercise your lungs and speed up your recovery after surgery. - If you are admitted to the hospital overnight, you will be given an incentive spirometer, which is a breathing machine that will help make sure that you are taking deep breaths and expanding your lungs while in the hospital. See Your Surgical Guide Book for more information. [facility] TEAM - At the [facility], we have a multidisciplinary team of caregivers that includes fellows, residents, nurse practitioners, physician assistants, clinical nurse specialists, nurses, medical assistants, patient care nursing assistants, social workers, top case assembler and many others. We all have different roles and responsibilities but we are all here to help. MINIMALLY INVASIVE HYSTERECTOMY POSTOPERATIVE INSTRUCTIONS ACTIVITY * No heavy lifting/pushing/pulling for 6 weeks. Do not lift anything more than 10 lbs (such as laundry, groceries, children, pets), vacuum, push heavy doors or grocery carts, etc, for 6 weeks. * You may climb stairs as tolerated. * Do not put anything in the vagina for at least 6-8 weeks after surgery unless otherwise instructed by your doctor (including tampons, douching, sexual intercourse, etc). * No driving for 1 week after surgery and not while taking narcotic pain medication. Drive defensively when you are ready. * Avoid sitting or lying in bed for more than 2 hours at a time while you are awake to reduce your risk of blood clots. * You may return to work when you are ready as long as you do not lift more than 10 pounds for 6 weeks. If you have a sedentary job or adz worker 1-2 weeks before returning to work is appropriate. You may return to work in 2-4 weeks if your job requires a lot of movement. Please contact your doctor if you need any return to work letters or medical leave paperwork to be completed. WOUND CARE * If you had a laparoscopic or robotic hysterectomy, you will have small incisions on your abdomen. There will be dissolvable stitches under your skin that do not need to be removed. If you have a piece of gauze with a clear bandage over your belly button, please remove that the day after surgery when you shower. If you have steri-strips (paper tape) on the incisions, these may be removed in about 1-2 weeks. It is OK to remove them if they are falling off. If skin glue is present, leave in place for at least 2 weeks. * Shower daily after surgery. Clean your incision with mild antibacterial soap and water. Pat your incision dry with a clean towel. No tub baths or swimming pools for six weeks or until wound is completely healed. * No ointments or antibacterial creams are required for incisions. Do NOT use cleansing agents like alcohol or hydrogen peroxide. * Wash your hands frequently, especially before touching your incision or changing any dressings. PAIN MANAGEMENT * Take your oral pain medication as needed. * Alternate Tylenol and ibuprofen/Motrin (if you are eligible). Each of these medications can be taken every six hours. Try to stagger them so that you are taking something for pain every three hours (ex. Take Motrin at 12:00, Tylenol at 3:00, Motrin at 6:00, etc.) to maximize pain relief. You should be taking 600mg of ibuprofen every 6 hours. You should be taking 1,000mg of tylenol every 6 hours. You should take every 6 hours with staggering and alternating. For example. 9am - ibuprofen 12pm - tylenol 3pm - ibuprofen 6pm - tylenol 9pm - ibuprofen 12am - tylenol 3am - ibuprofen 6am - tylenol Studies show this is as effective as narcotics for pain control without the side effects. Dosages * Tylenol 500-650 mg every 6 hours as needed * Motrin - 600 mg every 6 hours as needed * The maximum dose of Tylenol is 3000 mg in 24 hours, the maximum dose of Motrin/ibuprofen is 2400mg in 24 hours * Some pain medications can cause constipation. We recommend a stool softener (i.e. Colace) while you take these medications. * You may also take milk of magnesia or Miralax for constipation as directed on the bottle. * There is a risk for addiction with narcotic pain medication, so take with caution and do not take more than the recommended amount. * Please be sure to dispose of leftover pain medication after you have recovered. You may dispose of unused narcotic medications in the trash with an unpleasant substance such as coffee grounds or cat litter or you can turn them in to a designated law enforcement/pharmacy narcotic box. You can also check FDA.gov to assess which medications can be safely flushed down the toilet. * There are locations to dispose of unused medications at three [facility] locations: [facility] pharmacy, [facility] pharmacy, and the Pharmacy at the [facility] for [facility] (inside the parking garage on the first floor). WHAT TO EXPECT AT HOME * Recovery from surgery is generally 2-4 weeks, but sometimes longer for more strenuous activity. It is normal to be very tired during this time. * It is normal to have some drainage or a small amount of vaginal bleeding after surgery that would require the use of a light pantiliner. This discharge may last up to 6 weeks. The bleeding and discharge should be light and should have no odor. * You may experience gas pain, abdominal swelling, or shoulder pain for 24-72 hours after surgery. This is from the carbon dioxide gas put into your abdomen to better visualize your organs. A warm shower, heating pad, and/or walking may help. WHEN TO CALL YOUR DOCTOR: * Fever (>100.4 F or 38.0 C) or chills. * Incision problems such as redness, warmth, swelling, or foul smelling drainage. * Severe nausea or persistent vomiting. * Bright red vaginal bleeding (soaking >1 pad/hour) or foul smelling vaginal drainage. * IT IS NORMAL TO HAVE A MINIMAL AMOUNT OF VAGINAL SPOTTING OR VAGINAL DISCHARGE FOR SEVERAL WEEKS * Severe pain not relieved with pain medication. * Pain and swelling in your legs, especially if it is only on one side. * Pain with urination, cloudy urine, or foul smelling urine. * Severe redness/irritation at sites where adhesive bandages were applied. * Or if you have any other problems or questions. FREQUENTLY ASKED QUESTIONS/CONCERNS: Constipation Constipation is common and it is normal to not have a bowel movement for up to one week after surgery. You should still be passing gas despite constipation and should be able to tolerate both liquid and solid food without nausea or vomiting. Concerning symptoms would be constipation without gas, with fever, or nausea/vomiting and inability to eat. Call your doctor if these symptoms occur. Over the counter stool softeners including Colace twice daily and Miralax up to twice daily can help with constipation. 1. Senna (1 capsule) two times a day 2. Miralax (polyethylene glycol) 17 g (1 measured capful or 1 packet) once a day. If you have not had a bowel movement 3 days after surgery, you may take the Miralax two times a day. If you have any discomfort because of the need to have a bowel movement, you may add milk of magnesia or magnesium citrate (available at your local pharmacy without a prescription) at any time. Do not take milk of magnesia or magnesium citrate if you have kidney failure. If you have loose or watery stools, stop taking the medications. Call your doctor s office if you have questions. Drainage from incisions Clear/pink drainage or a minimal amount of bleeding from incisions can be normal after laparoscopic surgery. Concerning drainage that is persistent, thick/cloudy, or foul smelling can be an indication of infection and should prompt you to call your doctor. Post-operative pain Pain after surgery is a challenging part of the healing process. Pain may be present for weeks but should gradually get better. Increasing pain or pain that is unbearable warrants evaluation by your doctor or in the emergency department. By state law we cannot immediately provide narcotic pain medication over the phone. Stitches If 2 weeks have passed and you have a visible stitch at a laparoscopic incision site it is OK for you to cut it to remove it. CALL 911 OR GO TO THE EMERGENCY ROOM IF YOU HAVE: Any shortness of breath, difficulty breathing, or chest pain. IF YOU FEEL YOU NEED TO GO TO THE EMERGENCY DEPARTMENT POST OPERATIVELY, WE RECOMMEND THE MAIN CAMPUS EMERGENCY DEPARTMENT FOR CONTINUITY OF CARE AND THE BEST ACCESS TO ONE OF THE SURGEONS ON OUR TEAM. Address: [address] [place] [address] PATIENT SURGICAL CHECKLIST NEXT STEPS You and your provider have determined that you are a surgical candidate. Here are the next steps in the process to you being scheduled for your surgery: Your provider will submit the case to the schedulers. You should receive a call within 5 business days from our scheduling team. If you do not receive a call within 5 days then please call [phone] Once contacted by the scheduling team, you will work with the project controls scheduler to select a surgical OR date that works for both you and the provider The project controls scheduler will set up all of your Pre-Op appointments, which may include all or some of the following: Covid Testing Pre-Op consent appointment w/ your provider Pre-Op teaching appointment *can be done virtually Labs Admit Interview OnePACC (Anesthesia Clearance) And any other testing that the provider orders for prior to surgery You will receive a call from the senior power scheduler the day prior to your surgery as to when and where to arrive on the day of your scheduled surgery QUESTIONS: If you have any clinical questions: Please contact your provider's office directly; Earline Campuzano [phone] If you have any scheduling questions: Please contact the surgery scheduling office at [phone] THANK YOU for choosing the [facility]! We wish you a speedy recovery and continued good health! documented in this encounter [facility] 09-08-2021 History of Present illness Narrative Images from the original note were not included. [facility] SECTION FOR MINIMALLY INVASIVE GYNECOLOGIC SURGERY OUTPATIENT VISIT DATE 09/08/2021 OUTPATIENT VISIT TYPE ESTABLISHED PRIMARY CARE PHYSICIAN: Rudy Branch [address] [facility] [place] [address] CHIEF COMPLAINT: Follow up HISTORY OF PRESENT ILLNESS: Kaya Arce is a pleasant 36 year old female who presents for management of endo with a PMHx significant for Abnormal pap smear, anal fissure, crohn's disease, cardiac arrhythmia, fibromyalgia, HTN, IC, diaphragmatic hernia, lupus, lyme disease, PCOS, renal disease, obesity (BMI 34), asthma. PSHx CS (pfann), conization, LSO, bilateral inguinal hernia repair as infant, diagnostic l/s, l/s excision of endo, R cystectomy, cholecystectomy. She was last seen in clinic on 06/26/21. At that time, she presented for evaluation of endo. Pt had previously followed up with Drs. Turner and Linda. She reported pelvic pain, diarrhea. She noted her sxs were improved during menses. She was not taking anything for hormonal suppression. The plan at her last visit included: -PFPT - MRI - RTC for PE with me Pt denies any new sxs, allergies, hospitalizations, medications since her last visit. IMAGING/LABS: MRI FEMALE PELVIS WO/W IVCON 07/29/21: IMPRESSION: Findings of infiltrative endometriosis involving the right pelvic side wall, right ovary and right round ligament. Other foci of fibrosis / suspected infiltrative endometriosis as detailed in the synoptic report. Sigmoid is focally tethered to the right pelvic sidewall/right ovarian lesion with suspected focal muscular involvement. Cecum tetehred to the lesion without definite wall thickening. Thin fibrous tethering to the rectum without muscular invasion. 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 No endometrioma. Adenomyosis. Right sided hydrosalpinx. RESULT: Uterus: Size: 5.9 x 4.9-0.5 cm (5:31 and 3:20)cm postsurgical changes status post section. Orientation: Anteverted Endometrium: Homogeneous signal intensity with no mass measuring 15 mm. Junctional zone: Asymmetric thickening at the left fundus, measuring up to 14 mm (5:31), with cystic spaces/T2 hyperintense foci present. Findings consistent with adenomyosis. Cervix: Nabothian cysts. Leiomyomas: None; Adenomyomas: None Anterior compartment: Bladder: No infiltrative endometriosis. Ureters: No hydronephrosis. Vesicouterine pouch: No endometriosis Vesicovaginal septum: No endometriosis Prevesicular space: No endometriosis Middle Compartment Disease: Ovaries: - Right ovary: Right ovary measures 4.2 x 2.4 x 2.4 cm and is tethered to the right posterolateral uterine body medially. Enhancing fibrotic band, likely infiltrative endometriosis, extending along the right pelvic side wall measures up to 7cm in length (14:30). This involves the sigmoid and cecum (described below), right ovary and right round ligament (described below). - More than a dozen peripherally oriented subcentimeter physiologic follicles present. Crenulated mildly thick-walled cystic lesion in the posterior ovary, compatible with corpus luteal cyst. 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 - Left ovary: Absent Fallopian tubes: Mild to moderate hydrosalpinx on the right (5:24), likely involved by . Uterine ligaments: Focal nodular thickening along the left round ligament (5:29 and 6:10) suspicious for deep infiltrative endometriosis. Nodular thickening at the origin of the right round ligament with some intrinsic T1 hyperintense signal compatible with endometriosis involvement (5:27 and 9:30). Vagina: No endometriosis Posterior compartment disease: Torus uterinus (Uterine body): T2 hypointense thickening along the torus without T1 or T2 hyperintense foci could be compatible with postoperative fibrosis or infiltrative endometriosis related to fibrosis. Retrocervical Space/anterior rectosigmoid wall: Thin, smooth T2 hypointense band extend from the region of the torus, through the retrocervical space and tethered the anterior rectosigmoid (3:19). No definite rectosigmoid muscular invasion. Anterior rectal wall tethered is less than 10% of the rectal circumference. Uterosacral ligament: Diffuse thickening along the left uterosacral ligament either infiltrative endometriosis or post surgical scarring (4:26). Rectovaginal space / septum: Normal Additional bowel lesions present? (Sigmoid colon/ small bowel): - Sigmoid colon is focally tethered to the right pelvic sidewall/right ovarian lesion with possible muscle lesion, involving less than 25% of the circumference (5:25). -The cecum abuts and is tethered (6:6) to the right lateral uterine fundus right ovary and right broad ligament in region of suspected infiltrative endometriosis. No associated cecal wall thickening. -Appendix is not discretely identified but due to proximity to other right abdominal disease is at risk for endometriosis involvement. Additional sites of endometriosis: - No abdominal wall lesions Pelvis free fluid: None Lymph nodes: No lymph nodes enlarged by size criteria. Bones:Normal marrow signal. Past Medical History: PAST MEDICAL HISTORY Diagnosis Date Abnormal glandular Papanicolaou smear of cervix Abn. Pap smear (cervix) Abnormal maternal glucose tolerance, antepartum 2003 diet controlled Allergic rhinitis, cause unspecified Allergic rhinitis Anal fissure Anal fissure Ankylosis spondylitis Arthritis Asthma Back pain Calculus of kidney 2007 4 stones, followed by Dr. 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 [facility] Renal disease Syncope Unspecified asthma(493.90) Past Surgical History: PAST SURGICAL HISTORY Procedure Laterality Date DELIVERY ONLY 2003 , low cervical COLONOSCOPY FLX DX W/COLLJ SPEC WHEN PFRMD 1986 Colonoscopy COLONOSCOPY FLX DX W/COLLJ SPEC WHEN PFRMD 06/20/2014 Colonoscopy CONIZATION CERVIX W/WO D&C RPR ELTRD EXC 2001 LEEP-Cervix ESWL X1 F SALPINGO-OOPHORECTOMY 08/21/14 LEFT only PAST SURGICAL HISTORY OF WISDOM TEETH PAST SURGICAL HISTORY OF < 1 yr old bilat inguinal hernia repair SIGMOIDOSCOPY FLX DX W/COLLJ SPEC BR/WA IF PFRMD Sigmoidoscopy, flexible Family History: FAMILY HISTORY Problem Relation Age of Onset Prostate Cancer Maternal Grandfather Cancer Maternal Grandfather leukemia other (parkinsons) Maternal Grandfather Coronary Artery Disease Paternal Grandfather 69 suddenly Diabetes Paternal Grandmother Lipids Mother Osteoporosis Mother Heart disease Mother CAD and stent at age 71. Lipids Father Hypertension Father other (kidney stones) Father other (CHF) Father other (spastic 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) Son Breast Cancer Maternal Grandmother age 90 other (down syndrome) Paternal Uncle Social History: Social History Tobacco Use Smoking status: Never Smoker Smokeless tobacco: Never Used Substance Use Topics Alcohol use: No Comment: Seldom Drug use: No Current Outpatient Medications Medication Sig nystatin (MYCOSTATIN) powder Apply 1 application to affected area twice daily. APPLY TO AFFECTED AREA clobetasol (TEMOVATE) 0.05 % ointment Apply to affected area twice daily as needed. For flares on the hands Surgical Lubricant Jelly gel For MRI Female Pelvis, MRI department to provide. Administer intra-vaginal Surgilube immediately prior the MRI procedure (total amount to patient toleranace). flurandrenolide (CORDRAN) 0.05 % lotion Apply to affected area twice daily. As needed. Clobetasol Propionate (CLOBEX) 0.05 % sham Apply to affected area once daily as needed (for scalp irritation). Apply to dry scalp, leave on for 15 minutes and then wash off. Benzoyl Peroxide 5 % external wash Apply to affected areas daily (Patient not taking: Reported on 07/14/2021 ) clindamycin phosphate 1 % glqd Apply to affected area once daily. (Patient not taking: Reported on 07/14/2021 ) Cholestyramine-Aspartame (CHOLESTYRAMINE LIGHT) 4 gram powder Start with 1 g 2-3x/week; and increase to 1g daily; and then to 1 g 2x/day with meals and if ok use 3x/day with meal pantoprazole DR (PROTONIX) 40 mg tablet Take 40 mg by mouth once daily. ondansetron orally disintegrating (ZOFRAN ODT) 4 mg disintegrating tablet Take 1 tablet by mouth every 8 hours as needed. atenolol (TENORMIN) 25 mg tablet TAKE 1/2-1 TAB BY MOUTH TWICE A DAY DIRECTED albuterol HFA (VENTOLIN HFA) 90 mcg/actuation inhaler Inhale 2 Puffs as instructed. potassium chloride (KLOR-CON 10) 10 mEq tablet Take 2 tablets by mouth once daily. docusate sodium (COLACE) 100 mg capsule Take 100 mg by mouth twice daily as needed. cetirizine 10 mg tablet Take 1 tablet by mouth once daily. MULTI-VITAMIN ORAL Take by mouth once daily. 2 tablets daily No current facility-administered medications for this visit. Allergies As of Date: 09/08/2021 Allergen Noted Reaction KEFLEX [CEPHALEXIN] 05/09/2002 Hives and Anaphylaxis BEES 06/18/2010 Hives and Swelling CARDIZEM [DILTIAZEM HCL] 05/30/2018 Intolerance DOXYCYCLINE 09/26/2008 GI Upset EUCALYPTUS 06/07/2007 FLEXERIL [CYCLOBENZAPRINE] 04/28/2012 Mental Status Change LATEX 08/15/2008 Swelling MINOCYCLINE 03/07/2008 GI Upset NITROGLYCERIN SUPPOSITORIES [OTHE*01/31/2008 NSAIDS (NON-STEROIDAL ANTI-INFLAM*2015 Intolerance TIZANIDINE 12/04/2010 Mental Status Change VICODIN [HYDROCODONE-ACETAMINOPHE* 1 Itching Fully Assessed 07/29/2021 REVIEW OF SYSTEMS: POSITIVES IN BOLD Constitutional: Denies fever or chills Eyes: Denies change in visual acuity HENT: Denies nasal congestion or sore throat Respiratory: Denies cough or shortness of breath Cardiovascular: Denies chest pain or edema GI: Denies abdominal pain, nausea, vomiting, bloody stools or diarrhea : Denies dysuria Musculoskeletal: Denies back pain or joint pain Integument: Denies rash Neurologic: Denies headache, focal weakness or sensory changes Endocrine: Denies polyuria or polydipsia Lymphatic: Denies swollen glands Psychiatric: Denies depression or anxiety PHYSICAL EXAMINATION: Vital Signs: 09/08/21 1119 BP: 123/75 Weight: 84.8 kg (187 lb) Height: 157.5 cm (5' 2 ) There is no height or weight on file to calculate BMI. General appearance: Well appearing, alert, in no acute distress, well-hydrated, well nourished. Skin: Skin color, texture, turgor normal, no suspicious rashes or lesions Abdomen: Normal abdominal exam, Abdomen soft, non-tender. Bowel sounds normal. No masses, organomegaly see below Pelvic examination: Vulva/Perineum: Normal Urethra: No mass, tenderness or diverticulum Bladder:normal Vagina: no erythema, no ulcerations and no vaginal discharge Cervix: normal Uterus: 14 week size, boggy, tender to palpation, likely adhered to anterior abdominal wall Adnexae: No palpable mass, no cysts, no tenderness Bimanual: No anterior vaginal wall tenderness, mod levator obturator tenderness, severe cul de sac and uterosacral tenderness Rectal: Not done IMPRESSION: Ms. Arce is a 35 year old female who presents today with chronic pelvic pain, endometriosis. Primary symptoms include pelvic pain. She does not desire uterine preservation. History of multiple l/s revealing severe pelvic adhesions. MRI reveals likely . 1. Endo - Discussed MRI results including likely . Also discussed bowel lesions identified, explained that it does not appear that endo is infiltrating through the bowel - Recommend surgical intervention at this time as pt has exhausted medical management with limited improvement - Discussed surgical intervention including TLH vs excision of endo. As pt has one remaining ovary, recommend keeping ovary in place. Explained that there are some scenarios where ovary will have to be removed. If ovary is removed, recommend Dr. Gant or Dr. Noble consult for HRT. Educated that if pt requires HRT, she should start HRT 4 weeks postop. - Pt has hx HTN, is concerned about starting HRT due to elevated bp while on suppression. Explained that HRT is typically lower dose than hormonal suppression, has lower risk of increased bp. - Recommend CORS consult due to pt passing tissue prior to menses. CORS will be available for assistance during surgery. Discussed risk of ostomy. - Discussed TLH procedure. Explained ovaries will be kept in place for hormone maintenance as well as to maintain bone, brain, and heart health. Discussed salpingectomy and educated that salpingectomy has been shown to decrease lifetime risk of ovarian cancer. Educated removal of cervix should not affect sexual function, vaginal length, or cause organ prolapse. Discussed if cervix is removed, there will be no need for future pap smears if previous 20 years of pap smears were negative. Also explained that if cervix is left in place, there is a chance fibroids can grow off of cervix in the future. Explained that TLH will likely not affect sexual function and as long as at least one ovary is left in place pt will not go into surgical menopause. - Educated on pathophysiology of adeno, explained that the only way to definitively diagnose and treat adeno is with hysterectomy. PLAN: - Booking request for TLH/BS, ovarian cystectomy vs oophorectomy, cysto, excision of endo, possible laparotomy (<1%), possible bowel shave vs discoid - CORS consult placed - Consents signed today 1) Preoperative preparation: The following orders were placed during this encounter: Orders Placed This Encounter ADMIT INTERVIEW The patient was not advised to see her primary care physician to obtain medical clearance prior to surgery. She was given instructions to complete a bowel prep the day before surgery. Her resuscitative status is full code. Transfusions: She has not had a blood transfusion in the past. She would accept a blood transfusion if medically necessary. 2) Postoperative expectations and instructions were reviewed, including pain management needs and options, and prescriptions were provided. The patient's primary goal of surgery is: pain relief. She was counseled that most women undergoing this procedure do not stay overnight after surgery, but overnight stay will be determined by bowel work done. Her family will be available to help her recover at home in the weeks following surgery. She was given the postoperative instructions outlined at the bottom of this note. 3) She has comorbid medical conditions including previous abdominal surgeries, crohn's disease, HTN, BMI 34, asthma. 4) CONSENT: The risks, benefits and alternatives as well as the indications of her planned surgery were reviewed with the patient today. Risks including but not limited to the following were outlined in detail: Bleeding rarely requiring blood transfusion with the associated risk of viral transmission of Hepatitis 1/700,000, HIV 1/2,000,000. The risks and benefits of autologous blood transfusion with predonation were also discussed. Infection requiring antibiotics, potential prolonged or re-hospitalization as well as possible re-operation. Damage to adjacent organs including but not limited to: bladder, bowels, ureters (tubes that connect kidneys to bladder), pelvic organs (ovaries, fallopian tubes, uterus or womb), blood vessels and nerves, with the possibility of re-operation. Medical complications associated with surgery and anesthesia including but not limited to: deep vein thromobosis (DVT, or blood clot in the leg), pulmonary embolus (PE, blood clot in the lungs), heart attack, stroke, or . All questions were answered to the patient s satisfaction and the informed consent as well as consent for blood transfusion was signed today. The risks and benefits of autologous blood transfusion were also reviewed and the patient has declined this option. The risks, benefits and alternatives of the planned procedure have been discussed with the patient and/or her legal junior sales representative, all questions have been answered and she agrees to proceed. Written and verbal health teaching given to patient, patient verbalizes understanding and agrees with treatment plan. Medical Decision Making: Problems: Moderate: 1+ chronic illnesses with change Data: Unique source(s) for external note(s) reviewed: 3+ Unique test result(s) reviewed: 3+ Unique test(s) ordered: 3+ Risk: High: High risk from testing/treatment and Decision on elective major surgery w/ risk factors Medical Decision Making Level: 4 - Moderate I personally interviewed, confirmed and edited the above information if obtained by others. Scribe Attestation: By signing my name below, I, Tamika Salmon, attest that this documentation has been prepared under the direction and in the presence of Dr. Hellen Thomas DO. Electronically Signed:nubia Dent, September 07, 2021 5:13 AM Provider Attestation: I, Dr. Hellen Thomas personally performed the services described in this documentation. All medical record entries made by the scribe were at my direction and in my presence. I have reviewed the chart and discharge instructions (if applicable) and agree that the record reflects my personal performance and is accurate and complete. Dr. Hellen Thomas DO September 08, 2021, documented in this encounter [facility] 07-25-2021 Hospital Discharge instructions Patient Education 07/25/2021 15:46:50 Flank Pain, Uncertain Cause Flank Pain, Uncertain Cause The flank is the area between your upper abdomen and your back. Pain there is often caused by a problem with your kidneys. It might be a kidney infection or a kidney stone. Other causes of flank pain include spinal arthritis, a pinched nerve from a back injury, or a back muscle strain or spasm. The cause of your flank pain is not certain. You may need other tests. Home care Follow these tips when caring for yourself at home: You may use acetaminophen or ibuprofen to control pain, unless your health care provider prescribed another medicine. If you have chronic liver or kidney disease, talk with your provider before taking these medicines. Also talk with your provider first if you ve ever had a stomach ulcer or GI bleeding. If the pain is coming from your muscles, you may get relief with ice or heat. During the first 2 days after the injury, put an ice pack on the painful area for 20 minutes every 2 to 4 hours. This will reduce swelling and pain. A hot shower, hot bath, or heating pad works well for a muscle spasm. You can start with ice, then switch to heat after 2 days. You might find that alternating ice and heat works well. Use the method that feels the best to you. Follow-up care Follow up with your healthcare provider if your symptoms don t get better over the next few days. When to seek medical advice Call your healthcare provider right away if any of these happen: Repeated vomiting Fever of 100.4 F (38 C) or higher, or as directed by your health care provider Flank pain that gets worse Pain that spreads to the front of your belly (abdomen) Dizziness, weakness, or fainting Blood in your urine Burning feeling when you urinate or the need to urinate often Pain in one of your legs that gets worse Numbness or weakness in a leg [id number] The [email or web address]. [address] [place] [address]. All rights reserved. This information is not intended as a substitute for professional medical care. Always follow your healthcare professional's instructions. Follow Up Care 07/25/2021 13:15:31 With:RUDY BRANCH Address: [address] [place] [phone] When:2-4 days [facility] 07-14-2021 History of Present illness Narrative Images from the original note were not included. Department of Dermatology Joellen Yoder APRN.DIRECTOR OF MARKETING ANALYTICS 07/14/2021 Last visit in Dermatology: 01/08/2021 Objective/Assessment/Plan 1. Rash and nonspecific skin eruption Objective Right Hand - Anterior: Skin of the hands unremarkable today -stop use of plastic gloves. May moisturize as cover with cotton lined gloves if desired. -encouraged liberal application of moisturizers as needed for dryness/irritation. -wash daily with gentle cleanser and water -avoid irritation by using dye-free and fragrance-free products (soaps, cleansers, detergents, etc.) -for flares of irritation and itching, start twice daily as needed application of clobetasol ointment for up to 21 days per month. R/b/a for the medication(s) including possible side effects discussed and reviewed with patient. 2. Hair loss Objective Scalp: Minimal thinning of the hair throughout the scalp. No patches of alopecia, papules, pustules, scaling, or evidence of scarring. Likely secondary to isotretinoin. Suspect to see hair re-growth since stopping medication. Observational course. Monitor for changes. 3. Folliculitis (4) Objective Head - Anterior (Face), Left Breast, Neck - Anterior, Right Breast: Excoriated well defined follicular papules scattered to the face, neck, shoulders, and chest -may continue clindamycin, benzoyl peroxide, and cordran lotion as previously. -recommend follow up with Dr. Dennis for further management, given failure of isotretinoin. Patient agreeable to this. 4. Erythema intertrigo (2) Objective Left Inframammary Fold, Right Inframammary Fold: Skin of the bilateral inframammary unremarkable today Refill of nystatin powder placed today. Follow-up as noted below or as needed. Joellen Yoder APRN.MARY Chief Complaint: Patient presents with: Derm Problem: dry, peeling skin Subjective and Objective HPI: Kaya Arce is a 35 year old female who presents for multiple concerns. 1.) skin peeling on fingers/right hand, patient reports it happens monthly - almost on a cycle . She treats this with Vaseline on affected fingers and then a plastic glove over top overnight. She states this has been going on for ~ 5 months. The skin of the fingers is normal today. She notes no peeling. 2.) Hair loss from isotretinoin therapy. She completed only 1 month of isotretinoin 20mg daily. She reports significant hair loss on the scalp and a change in texture of the hair. 3.) Worsening folliculitis on the face, scalp, and trunk. She noted improvement of this with taking isotretinoin. She is uncertain what to do for this moving forward. 4.) fungal rash on the bilateral inframammary. Controlled with use of nystatin, but she admits frustration that this never goes away. Past medical history is reviewed. Medication list is reviewed. Physical Exam included: To waist: Scalp, face, ears, neck, back, chest, abdomen, bilateral upper extremities Intake completed by HUMBERTO Murillo APRN.DIRECTOR OF MARKETING ANALYTICS documented in this encounter [facility] 06-26-2021 Instructions Tamika Salmon - 06/26/2021 8:25 AM EDT [email or web address] Pelvic Floor Dysfunction (PFD) The pelvic floor is made up of the bony pelvis (hip bones) together with different layers of muscles, fascia, and ligaments. The pelvic floor acts like a hammock to support the pelvic organs including the uterus, bladder, and rectum. If the muscles become overactive, strained or uncoordinated, they may cause pain in the pelvis. This pain may lead the muscles to not contract, relax, or work together. This in turn can lead to shifting of your bony pelvis with subsequent pain in your lower back, hips, knees, or ankles. Symptoms Symptoms related to PFD may include pain of the lower abdomen and pelvic region, a sensation of vaginal heaviness or pressure, pain with vaginal penetration, and low back pain that cannot be explained by other reasons. PFD can also impact bladder and bowel function. Bladder symptoms may include urinary urgency and frequency, feeling of incomplete emptying, intermittent urinary stream or the need to strain, and urinary incontinence (leakage). Bowel symptoms may include constipation, pain with bowel movements, frequent bowel movements and fecal incontinence (leakage of stool.) Symptoms of PFD tend to develop slowly and worsen over time. Main causes of PFD While the cause of PFD is not always known contributing factors may include , vaginal delivery, pelvic trauma, pelvic surgery and obesity. PFD is also frequently found alongside pelvic diseases such as endometriosis, bladder pain syndrome, irritable bowel syndrome and vulvar pain. PFD may also arise due to repeated straining (such as with bowel movements) leading to poor coordination of the pelvic floor muscles. The pelvic floor muscles may also be involved in compensating for other musculoskeletal conditions, such as low back or hip pain. Treatment Physical Therapy is performed by a physical therapist who has been specifically trained in pelvic health. The physical therapist will perform a complete initial evaluation and, together with the patient, will establish goals and develop an individualized treatment plan. The treatment plan may include patient education, manual therapy, therapeutic exercise, postural training, breathing exercises, neuromuscular reeducation (teaching how to improve pelvic floor muscle control including relaxation, contraction, and coordination), biofeedback, and home exercise program. Modalities such as cold laser, interferential current, electrical stimulation, ultrasound, heat, and ice may also be used. Medications in the form of muscle relaxants or nerve pain medicines can be given to relax the pelvic muscles, desensitize the nervous system, and help the patient tolerate physical therapy. Trigger point injections are injections placed directly in the dysfunctional muscles to control pain, treat inflammation, and reduce spasm. Injections may include a numbing agent, a steroid, or even botulinum toxin. PFD often requires a combination of treatments in addition to physical therapy. In patients with chronic pain, other interventions such as stress control, lifestyle modification, cognitive behavioral therapy (CBT), relationship therapy, meditation, yoga, and acupuncture may be used to reduce pain and improve function. This information is from the international pelvic pain society (pelvicpain.org) documented in this encounter [facility] 06-26-2021 History and physical note Images from the original note were not included. [facility] SECTION FOR MINIMALLY INVASIVE GYNECOLOGIC SURGERY OUTPATIENT VISIT DATE 06/26/2021 OUTPATIENT VISIT TYPE CONSULT PRIMARY CARE PHYSICIAN: Rudy Branch [address] [place] [address] CHIEF COMPLAINT: Endometriosis, chronic pelvic pain Dr. Turner, Dr. Mckeon patient HISTORY OF PRESENT ILLNESS: Kaya Arce is a pleasant 35 year old female who presents with a history of ENDOMETRIOSIS (path confirmed). PMHx Abnormal pap smear, anal fissure, crohn's disease, cardiac arrhythmia, fibromyalgia, HTN, IC, diaphragmatic hernia, lupus, lyme disease, PCOS, renal disease, obesity (BMI 34), asthma. PSHx CS (pfann), conization, LSO, bilateral inguinal hernia repair as , diagnostic l/s, l/s excision of endo, R cystectomy, cholecystectomy. She describes her symptoms as pelvic pain, diarrhea Symptoms have been present for years Her pain is felt at these locations: pelvis, abdomen Pt reports GI problems including 7-10 episodes of diarrhea per day, abdominal pain which worsens about 30 minutes after eating. She also reports frequent kidney stones. She states her sxs are improved during menses. She reports difficulty urinating when not on menses. Pt also has hx POTS, which she suspects is hormonally driven. Pt states her local INSTITUTION DIRECTOR referred her to ROSALINDA, who recommended hysterectomy. She then followed up with Dr. Mckeon. Pt states that a surgery date was not set with Dr. Mckeon, but they also decided to pursue hysterectomy. She did PFPT for about 1 year ~2015, discontinued due to long commute about 5 years ago. She follows with GI. She states she may desire future , but is hesitant due to tough and delivery with her son. Urgent CS. She describes her periods as being regular, present q 30-40 days, last for 3-5 days, heavy flow, + clots. Her pain is not worse during her menses. She has tried the following for menses suppression: patch, NuvaRing, elizabeth, jermaine, sprintec, loestrin, provera, MIrena, AMEYA She is currently taking nothing for menses suppression -Dysmenorrhea: yes -Dysuria: no -Dyschezia: occasional -Dyspareunia: not currently active She has missed work/school due to pain. She has visited the Emergency Room for the pain. She may desire future child bearing. Aggravating factors: sitting, movement. Alleviating factors: heating pad. -Colonoscopy: no -EMB: no -Previous surgical intervention: In 2019 had lap casey with adhesions/endometriosis described intraop- improved bowel sxs after surg (for approx 6 mos) In 2017 had laparoscopy for excision of endometriosis, right cystectomy, insertion of mirena IUD, hysteroscopy. In 2014 had diagnostic laparoscopy and LSO - for left ovarian cyst and pelvic pain - had dense pelvic adhesions from the uterus and right salpinx to the anterior abdominal wall and endometriosis was noted. Of note, she did have pain relief after this surgery. 2011 op report reviewed - partial record - will request full records as only partial op report visualized. Dense chronic scaring intraoperatively described. Also in 2001, history of LEEP though reports normal paps recently. Pt last followed up with Dr. Turner on 07/05/20. The plan at her visit included: Endocrinology for PCOS (does not do well on OCP) Dermatology to address potential hidradenitis suppurativa Topical clindamycin 1% apply daily prometrium 100 mg Consider spironolactone once bleeding issues better controlled Follow up in 2-3 months Pt was seen by Dr. Mckeon on 04/16/21 for endo, dysmenorrhea, second opinion and surgical consultation. The plan at this visit included: We reviewed management options Including medical and surgical treatments. Previously intolerant of hormonal medications. Failed IUD. Discussed potential etiologies of pain including, but not limited to endometriosis, pelvic adhesive disease,felisha tone pelvic floor, ov cysts/ovulation, and non-sharepoint web developer causes including GI, , and MSK. Morteza discussion regarding potential post-hysterectomy expectations and advised that hysterectomy not likely to resolve all symptoms Lengthy discussion re ovarian conservation vs excision with R/B/A of each, in context of pain and PCOS. Discussed risks of early surgical menopause and prev hormonal intolerance limiting HRT. Recommend conservation. Discussed recommendation and rationale for EMB in detail. Patient does not feel she will tolerate office procedure given discomfort with pelvic exams. Also discussed likely difficult access given uterine/cervical position. Reviewed R/B/A including endometrial sampling under anesthesia or proceeding to hysterectomy without biopsy. Discussed risk of undiagnosed pathology and potential josh for additional treatment/surgery. Patient most interested in hysterectomy. Plan RA-TLH with ovarian conservation. Reviewed procedure Surg request placed Needs medicaid consent OP note 07/2014 w/ Dr. Vela: Procedure: Diagnostic laparoscopy and left salpingo-oophorectomy. Indicated for Left ovarian cyst, dense pelvic adhesions from the uterus and right tube to the anterior abdominal wall, endometriosis. IMAGING: PELVIC US [facility] 07/04/20: Impression Normal appearing anteverted uterus that measures 98 mm x 39 mm x 51 mm. The central endometrium complex measures 8.3 mm in combined thickness. No abnormal blood flow to suggest a polyp or focal endometrial pathology is observed within the endometrial complex. The contour of the endometrial cavity was normal on 3-D imaging. The right ovary is normal appearing. A left oophorectomy is noted. There is no free fluid visualized in the peritoneal cavity. Uterus Uterus: Visualized Uterus position: anteverted Uterus long 98 mm Uterus ap 39 mm Uterus tr 51 mm Uterus Vol 103.1 cm Endometrial thickness, total 8.3 mm Right Ovary Rt ovary: Visualized Rt ovary D1 38 mm Rt ovary D2 29 mm Rt ovary D3 29 mm Rt ovary Vol 16.9 cm Left Ovary Lt ovary details: left oophorectomy noted Cul de Sac Visualized. no free fluid visualized Past Gynecologic History: Menarche:9y Last pap cytology: 2020, neg History of abnormal history Yes History of STI: No History of PID: No Past Obstetrical History: Vaginal delivery: 0 Section: 1, pfann, urgent, child w CP Ectopic: 0 Miscarriage:0 Past Medical History: PAST MEDICAL HISTORY Diagnosis Date Abnormal glandular Papanicolaou smear of cervix Abn. Pap smear (cervix) Abnormal maternal glucose tolerance, antepartum 2003 diet controlled Allergic rhinitis, cause unspecified Allergic rhinitis Anal fissure Anal fissure Ankylosis spondylitis Arthritis Asthma Back pain Calculus of kidney 2007 4 stones, followed by Dr. 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 [facility] Renal disease Syncope Unspecified asthma(493.90) Past Surgical History: PAST SURGICAL HISTORY Procedure Laterality Date DELIVERY ONLY 2003 , low cervical COLONOSCOPY FLX DX W/COLLJ SPEC WHEN PFRMD 1986 Colonoscopy COLONOSCOPY FLX DX W/COLLJ SPEC WHEN PFRMD 06/20/2014 Colonoscopy CONIZATION CERVIX W/WO D&C RPR ELTRD EXC 2001 LEEP-Cervix ESWL X1 F SALPINGO-OOPHORECTOMY 08/21/14 LEFT only PAST SURGICAL HISTORY OF WISDOM TEETH PAST SURGICAL HISTORY OF < 1 yr old bilat inguinal hernia repair SIGMOIDOSCOPY FLX DX W/COLLJ SPEC BR/WA IF PFRMD Sigmoidoscopy, flexible Family History: FAMILY HISTORY Problem Relation Age of Onset Prostate Cancer Maternal Grandfather Cancer Maternal Grandfather leukemia other (parkinsons) Maternal Grandfather Coronary Artery Disease Paternal Grandfather 69 suddenly Diabetes Paternal Grandmother Lipids Mother Osteoporosis Mother Heart disease Mother CAD and stent at age 71. Lipids Father Hypertension Father other (kidney stones) Father other (CHF) Father other (spastic 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) Son Breast Cancer Maternal Grandmother age 90 other (down syndrome) Paternal Uncle Social History: Social History Tobacco Use Smoking status: Never Smoker Smokeless tobacco: Never Used Substance Use Topics Alcohol use: No Comment: Seldom Drug use: No Current Outpatient Medications Medication Sig flurandrenolide (CORDRAN) 0.05 % lotion Apply to affected area twice daily. As needed. Clobetasol Propionate (CLOBEX) 0.05 % sham Apply to affected area once daily as needed (for scalp irritation). Apply to dry scalp, leave on for 15 minutes and then wash off. Benzoyl Peroxide 5 % external wash Apply to affected areas daily clindamycin phosphate 1 % glqd Apply to affected area once daily. Cholestyramine-Aspartame (CHOLESTYRAMINE LIGHT) 4 gram powder Start with 1 g 2-3x/week; and increase to 1g daily; and then to 1 g 2x/day with meals and if ok use 3x/day with meal nystatin (MYCOSTATIN) powder Apply 1 application to affected area twice daily. APPLY TO AFFECTED AREA pantoprazole DR (PROTONIX) 40 mg tablet Take 40 mg by mouth once daily. ondansetron orally disintegrating (ZOFRAN ODT) 4 mg disintegrating tablet Take 1 tablet by mouth every 8 hours as needed. atenolol (TENORMIN) 25 mg tablet TAKE 1/2-1 TAB BY MOUTH TWICE A DAY DIRECTED albuterol HFA (VENTOLIN HFA) 90 mcg/actuation inhaler Inhale 2 Puffs as instructed. potassium chloride (KLOR-CON 10) 10 mEq tablet Take 2 tablets by mouth once daily. docusate sodium (COLACE) 100 mg capsule Take 100 mg by mouth twice daily as needed. cetirizine 10 mg tablet Take 1 tablet by mouth once daily. MULTI-VITAMIN ORAL Take by mouth once daily. 2 tablets daily No current facility-administered medications for this visit. Allergies As of Date: 06/26/2021 Allergen Noted Reaction KEFLEX [CEPHALEXIN] 05/09/2002 Hives and Anaphylaxis BEES 06/18/2010 Hives and Swelling CARDIZEM [DILTIAZEM HCL] 05/30/2018 Intolerance DOXYCYCLINE 09/26/2008 GI Upset EUCALYPTUS 06/07/2007 FLEXERIL [CYCLOBENZAPRINE] 04/28/2012 Mental Status Change LATEX 08/15/2008 Swelling MINOCYCLINE 03/07/2008 GI Upset NITROGLYCERIN SUPPOSITORIES [OTHE*01/31/2008 NSAIDS (NON-STEROIDAL ANTI-INFLAM*2015 Intolerance TIZANIDINE 12/04/2010 Mental Status Change VICODIN [HYDROCODONE-ACETAMINOPHE* 1 Itching Fully Assessed 04/16/2021 REVIEW OF SYSTEMS: POSITIVES IN BOLD Constitutional: Denies fever or chills Eyes: Denies change in visual acuity HENT: Denies nasal congestion or sore throat Respiratory: Denies cough or shortness of breath Cardiovascular: Denies chest pain or edema GI: Denies abdominal pain, nausea, vomiting, bloody stools or diarrhea : Denies dysuria Musculoskeletal: Denies back pain or joint pain Integument: Denies rash Neurologic: Denies headache, focal weakness or sensory changes Endocrine: Denies polyuria or polydipsia Lymphatic: Denies swollen glands Psychiatric: Denies depression or anxiety PHYSICAL EXAMINATION: Vital Signs: There were no vitals filed for this visit. There is no height or weight on file to calculate BMI. General appearance: Well appearing, alert, in no acute distress, well-hydrated, well nourished. Skin: Skin color, texture, turgor normal, no suspicious rashes or lesions PELVIC EXAMINATION: Virtual visit IMPRESSION: Ms. Arce is a 35 year old female who presents today with chronic pelvic pain, endometriosis. Primary symptoms include pelvic pain. She does not desire uterine preservation. History of multiple l/s revealing severe pelvic adhesions. We discussed at length what is known about the pathophysiology of endometriosis. Educated that there is little if any correlation between the severity of endometriosis seen at the time of surgery and the severity of pain symptoms or even implications for fertility. The diagnosis can only be confirmed by surgery with tissue sample examined by pathology. Educated that endometriosis is often a chronic condition that may recur and often requires a snf treatment plan. Once endometriosis is identified, there are many effective therapies for endometriosis, but, unfortunately, there is no single therapy that is effective for all women with endometriosis-related pelvic pain. The first line therapy for women with endometriosis who are not trying to conceive is often hormonal suppression and approximately 70% of women experience improvement in their pain with hormonal suppression (i.e., progestins, oral contraceptives). If no improvement in pain symptoms in 3-6 months or for women who desire , surgical therapy is typically offered. Surgical therapy with excision and/or ablation of endometriosis provides a similar chance for pain improvement (~ 70%), but the risk of recurrent pain approaches 50% just 2 4 years after surgery. Repetitive surgeries tend to be less successful than the initial surgery for the treatment of pain. Some women are candidates for denervation procedures such as a presacral neurectomy. Finally, we also discussed that even when endometriosis is identified in women with pelvic pain, it is often not the only cause of pain and other possible sources of pain should be identified and treated. These causes may include gastrointestinal, genitourinary, psychological, or musculoskeletal. Neuropathic pain: We discussed the role of the central nervous system in the initiation and maintenance of many different chronic pain disorders. I counseled her that the pain regulatory center within the brain can cause upregulation and persistence of pain, even when there is no physical abnormality in the body area where the patient feels pain. There is a large body of evidence to confirm that many chronic pain disorders (such as fibromyalgia, interstitial cystitis, irritable bowel syndrome, and low back pain) are caused by this type of neuropathic pain, and there is increasing evidence that many women with pelvic pain have a similar cause for their pain symptoms. This seems to be true regardless of the presence of endometriosis. I explained that there is no diagnostic test to confirm or exclude this diagnosis, and it is made by history and physical exam alone. These conditions are usually chronic (and cannot be cured), but can often be managed by a combination of pharmacologic therapies and behavior modification techniques. In women who underwent local excision with ovarian preservation, the surgery-free percentages were 79.4%, 53.3%, and 44.6%, respectively, at 2, 5, and 7 years. In women who underwent hysterectomy with ovarian preservation, the 2-, 5-, and 7-year reoperation-free percentages were 95.7%, 86.6%, and 77.0%, respectively. In women who underwent hysterectomy without ovarian preservation, the percentages were 96.0%, 91.7%, and 91.7%, respectively. However, in women between 30 and 39 years of age, removal of the ovaries did not significantly improve the surgery-free time. - Discussed recommendation for MRI for endo mapping, evaluation of any bowel lesions that may indicate CORS involvement - Discussed restarting PFPT as improving pelvic floor is recommended regardless of pt's desire to pursue surgery - Explained recommendation for in person visit for PE. During in person visit will discuss surgical intervention as pt is interested in hysterectomy w/ excision of endo - Educated that likely has multiple pain generators. Unlikely TLH alone will resolve all pain. PLAN: After a thorough discussion, we have derived at the following plan: -PFPT - MRI - RTC for PE with me Written and verbal health teaching given to patient, patient verbalizes understanding and agrees with treatment plan. Medical Decision Making: Problems: Moderate: New problem with uncertain prognosis Data: Unique source(s) for external note(s) reviewed: 3+ Unique test result(s) reviewed: 3+ Unique test(s) ordered: 1 Independent interpretation of test from other physician/QHCP Risk: High: High risk from testing/treatment Medical Decision Making Level: 5 - High This is a virtual visit. It required patient-provider interaction for the medical decision making as documented below. The patient verbally consented to a Virtual Visit with telephone back up as necessary. I personally interviewed, confirmed and edited the above information if obtained by others. Scribe Attestation: By signing my name below, I, Tamika Salmon, attest that this documentation has been prepared under the direction and in the presence of Dr. Hellen Thomas DO. Electronically Signed:nubia Dent, June 24, 2021 7:28 AM Provider Attestation: I, Dr. Hellen Thomas personally performed the services described in this documentation. All medical record entries made by the scribe were at my direction and in my presence. I have reviewed the chart and discharge instructions (if applicable) and agree that the record reflects my personal performance and is accurate and complete. Dr. Hellen Thomas DO June 26, 2021, documented in this encounter [facility] 05-04-2021 Hospital Discharge instructions Patient Education 05/04/2021 11:29:06 Viral Syndrome (Adult) Viral Syndrome (Adult) A viral illness may cause a number of symptoms such as fever. Other symptoms depend on the part of the body that the virus affects. If it settles in your nose, throat, and lungs, it may cause cough, sore throat, congestion, runny nose, headache, earache and other ear symptoms, or shortness of breath. If it settles in your stomach and intestinal tract, it may cause nausea, vomiting, cramping, and diarrhea. Sometimes it causes generalized symptoms like aching all over, feeling tired, loss of energy, or loss of appetite. A viral illness usually lasts anywhere from several days to several weeks, but sometimes it lasts longer. In some cases, a more serious infection can look like a viral syndrome in the first few days of the illness. You may need another exam and additional tests to know the difference. Watch for the warning signs listed below for when to seek medical advice. Home care Follow these guidelines for taking care of yourself at home: If symptoms are severe, rest at home for the first 2 to 3 days. Stay away from cigarette smoke - both your smoke and the smoke from others. You may use dqho-ukz-fkpybjv acetaminophen or ibuprofen for fever, muscle aching, and headache, unless another medicine was prescribed for this. If you have chronic liver or kidney disease or ever had a stomach ulcer or gastrointestinal bleeding, talk with your healthcare provider before using these medicines. No one who is younger than 18 and ill with a fever should take aspirin. It may cause severe disease or . Your appetite may be poor, so a light diet is fine. Avoid dehydration by drinking 8 to 12, 8-ounce glasses of fluids each day. This may include water; orange juice; lemonade; apple, grape, and cranberry juice; clear fruit drinks; electrolyte replacement and sports drinks; and decaffeinated teas and coffee. If you have been diagnosed with a kidney disease, ask your healthcare provider how much and what types of fluids you should drink to prevent dehydration. If you have kidney disease, drinking too much fluid can cause it build up in the your body and be dangerous to your health. Tocg-jqv-xvlpwhq remedies won't shorten the length of the illness but may be helpful for symptoms such as cough, sore throat, nasal and sinus congestion, or diarrhea. Don't use decongestants if you have high blood pressure. Follow-up care Follow up with your healthcare provider if you do not improve over the next week. Call 911 Call 911 if any of the following occur: Convulsion Feeling weak, dizzy, or like you are going to faint Chest pain, or more than mild shortness of breath When to seek medical advice Call your healthcare provider right away if any of these occur: Cough with lots of colored sputum (mucus) or blood in your sputum Chest pain, shortness of breath, wheezing, or trouble breathing Severe headache; face, neck, or ear pain Severe, constant pain in the lower right side of your belly (abdominal) Continued vomiting (can t keep liquids down) Frequent diarrhea (more than 5 times a day); blood (red or black color) or mucus in diarrhea Feeling weak, dizzy, or like you are going to faint Extreme thirst Fever of 100.4 F (38 C) or higher, or as directed by your healthcare provider [id number] The [email or web address]. [address] [place] [address], [place] [address]. All rights reserved. This information is not intended as a substitute for professional medical care. Always follow your healthcare professional's instructions. Follow Up Care 05/04/2021 11:10:11 With:RUDY BRANCH DO Address: [address] [place] [id number] When:2-4 days [facility] 09-27-2019 History of Present illness Narrative Ms. Arce is a 35 year old female presents virtually for pelvic pain, difficulty urinating, rectal issueskindly referred by Dr. Maci Matta, primary care is Dr. Aguilar cholecystectomy September 2019, Dr. Matta, INSTITUTION DIRECTOR cleaned up endometrial adhesionsbladder and uterus adhered to abdominal wall, referred for further treatment as a lot of adhesionsReferred to Dr. Turner, [facility] was [facility] d/t endometriosis but [place], [place] but feels the best then w pelvic pain during mensesduring menses more difficult to urinate, weak stream, not sure if r/t uterushas tried multiple control, doesn t do well w hormonesmenses 6-10 days - May 2020 passed 7 kidney stones, recently [place] Urolog[place] Dr. [place] (caused burning w urination had to stop)stone analysis 30% uric acid, considering allopurinol,father has kidney stones managed w allopurinol welllithotripsy in past, began passing stones age 18saw Urolog[address] Patel in past but not on insurance nowDr. Amanda wanted to do surgery for kidney stonesTried Elmiron in past, stopped her bowels completelydid best when on Pyridium but couldn't do long termDTF: 12 x, UUI > TENISHA, panty liner 2/dayNTF: 3x2 UTIs in past year, usually associated w a kidney stoneGross and microscopic hematuria wo UTIsCT [facility] this [facility] orthopedically and other issuesGained 15 lbs w steroids now back to loose stoolsendoscopy and colonoscopy as still loose stools after cholecystectomyBile Reflux, pantoprazole; Crohn's2 years ago hemorrhoidectomy, rectal fissure, spasms occur when bladder spasms occurLow potassium issueson Azithromycin 250 mg daily x 2 months from Derm d/t folliculitis/rosacea (so far 8 days)Same partner for 20 years, but unable to have intercourse past 2 years d/t painPMH: Dysautonomia, low bp, PVC, PAC (cardiology manages) Lupus vs mixed connective tissue disorder, back issuesPSH: cholecystectomy, endometriosis adhesion removal, lithotripsy; hemorrhoidectomyFH: father kidney stones, grandmother had breast cancer, grandfather prostate cancerSH: denies smoking history, on disability last worked Feb 2018 w dysautonomia (POTS) [id number] DO Work Phone: documented as of this encounter (statuses as of 06/26/2021) [facility] History of Past illness Narrative* Problem Noted Date Resolved Date Low back pain 09/11/2013 10/06/2017 Buttock pain 09/11/2013 10/06/2017 Backache, unspecified 05/30/2012 10/06/2017 Pyoderma 05/07/2011 05/21/2016 Pruritus 05/07/2011 05/21/2016 Xerosis cutis 03/08/2011 05/21/2016 Spasm of muscle 05/21/2010 10/06/2017 Pyoderma, unspecified 12/21/2009 05/21/2016 Excoriation 09/08/2009 05/21/2016 Routine gynecological examination 09/26/2008 11/21/2011 Overview: [facility], [facility] [place] Poor growth, affecting management of mother, antepartum condition or complication 08/15/2008 09/26/2008 Routine general medical exam ination at a health care facility 08/01/2008 11/21/2011 Overview: 08/01/08 -- establish care Routine gynecological examination 08/01/2008 08/15/2008 Overview: [facility], [facility] [place] Urinary calculus, unspecified 12/22/2007 Overview: First occurred in early 2006, again summer 2007 - total as of Dec 2007 Pain in joint, lower leg 12/11/2005 008 Hemorrhage of rectum and anus Abnormal maternal glucose tolerance, antepartum 08/01/2008 Overview: diet controlled documented as of this encounter (statuses as of 07/14/2021) [facility] History of Past illness Narrative* Problem Noted Date Resolved Date Low back pain 09/11/2013 10/06/2017 Buttock pain 09/11/2013 10/06/2017 Backache, unspecified 05/30/2012 10/06/2017 Pyoderma 05/07/2011 05/21/2016 Pruritus 05/07/2011 05/21/2016 Xerosis cutis 03/08/2011 05/21/2016 Spasm of muscle 05/21/2010 10/06/2017 Pyoderma, unspecified 12/21/2009 05/21/2016 Excoriation 09/08/2009 05/21/2016 Routine gynecological examination 09/26/2008 11/21/2011 Overview: [facility], [facility] [place] Poor growth, affecting management of mother, antepartum condition or complication 08/15/2008 09/26/2008 Routine general medical exam ination at a health care facility 08/01/2008 11/21/2011 Overview: 08/01/08 -- establish care Routine gynecological examination 08/01/2008 08/15/2008 Overview: [facility], [facility] [place] Urinary calculus, unspecified 12/22/2007 Overview: First occurred in early 2006, again summer total as of Dec 2007 Pain in joint, lower leg 12/11/2005 008 Hemorrhage of rectum and anus Abnormal maternal glucose tolerance, antepartum 08/01/2008 Overview: diet controlled documented as of this encounter (statuses as of 07/17/2021) [facility] History of Past illness Narrative* Problem Noted Date Resolved Date Low back pain 09/11/2013 10/06/2017 Buttock pain 09/11/2013 10/06/2017 Backache, unspecified 05/30/2012 10/06/2017 Pyoderma 05/07/2011 05/21/2016 Pruritus 05/07/2011 05/21/2016 Xerosis cutis 03/08/2011 05/21/2016 Spasm of muscle 05/21/2010 10/06/2017 Pyoderma, unspecified 12/21/2009 05/21/2016 Excoriation 09/08/2009 05/21/2016 Routine gynecological examination 09/26/2008 11/21/2011 Overview: [facility], [facility] [place] Poor growth, affecting management of mother, antepartum condition or complication 08/15/2008 09/26/2008 Routine general medical exam ination at a health care facility 08/01/2008 11/21/2011 Overview: 08/01/08 -- establish care Routine gynecological examination 08/01/2008 08/15/2008 Overview: [facility], [facility] [place] Urinary calculus, unspecified 12/22/2007 Overview: First occurred in early 2006, again summer total as of Dec 2007 Pain in joint, lower leg 12/11/2005 008 Hemorrhage of rectum and anus Abnormal maternal glucose tolerance, antepartum 08/01/2008 Overview: diet controlled documented as of this encounter (statuses as of 08/05/2021) [facility] History of Past illness Narrative* Problem Noted Date Resolved Date Low back pain 09/11/2013 10/06/2017 Buttock pain 09/11/2013 10/06/2017 Backache, unspecified 05/30/2012 10/06/2017 Pyoderma 05/07/2011 05/21/2016 Pruritus 05/07/2011 05/21/2016 Xerosis cutis 03/08/2011 05/21/2016 Spasm of muscle 05/21/2010 10/06/2017 Pyoderma, unspecified 12/21/2009 05/21/2016 Excoriation 09/08/2009 05/21/2016 Routine gynecological examination 09/26/2008 11/21/2011 Overview: [facility], [facility] [place] Poor growth, affecting management of mother, antepartum condition or complication 08/15/2008 09/26/2008 Routine general medical exam ination at a health care facility 08/01/2008 11/21/2011 Overview: 08/01/08 -- establish care Routine gynecological examination 08/01/2008 08/15/2008 Overview: [facility], [facility] [place] Urinary calculus, unspecified 12/22/2007 Overview: First occurred in early 2006, again summer 2007 - total as of Dec 2007 Pain in joint, lower leg 12/11/2005 008 Hemorrhage of rectum and anus Abnormal maternal glucose tolerance, antepartum 08/01/2008 Overview: diet controlled documented as of this encounter (statuses as of 08/28/2021) [facility] History of Past illness Narrative* Problem Noted Date Resolved Date Low back pain 09/11/2013 10/06/2017 Buttock pain 09/11/2013 10/06/2017 Backache, unspecified 05/30/2012 10/06/2017 Pyoderma 05/07/2011 05/21/2016 Pruritus 05/07/2011 05/21/2016 Xerosis cutis 03/08/2011 05/21/2016 Spasm of muscle 05/21/2010 10/06/2017 Pyoderma, unspecified 12/21/2009 05/21/2016 Excoriation 09/08/2009 05/21/2016 Routine gynecological examination 09/26/2008 11/21/2011 Overview: [facility], [facility] [place] Poor growth, affecting management of mother, antepartum condition or complication 08/15/2008 09/26/2008 Routine general medical exam ination at a health care facility 08/01/2008 11/21/2011 Overview: 08/01/08 -- establish care Routine gynecological examination 08/01/2008 08/15/2008 Overview: [facility], [facility] Urinary calculus, unspecified 12/22/2007 Overview: First occurred in early 2006, again summer 2007 - total as of Dec 2007 Pain in joint, lower leg 12/11/2005 008 Hemorrhage of rectum and anus Abnormal maternal glucose tolerance, antepartum 08/01/2008 Overview: diet controlled documented as of this encounter (statuses as of 09/12/2021) [facility] History of Past illness Narrative* Problem Noted Date Resolved Date Low back pain 09/11/2013 10/06/2017 Buttock pain 09/11/2013 10/06/2017 Backache, unspecified 05/30/2012 10/06/2017 Pyoderma 05/07/2011 05/21/2016 Pruritus 05/07/2011 05/21/2016 Xerosis cutis 03/08/2011 05/21/2016 Spasm of muscle 05/21/2010 10/06/2017 Pyoderma, unspecified 12/21/2009 05/21/2016 Excoriation 09/08/2009 05/21/2016 Routine gynecological examination 09/26/2008 11/21/2011 Overview: [facility], [facility] Poor growth, affecting management of mother, antepartum condition or complication 08/15/2008 09/26/2008 Routine general medical exam ination at a health care facility 08/01/2008 11/21/2011 Overview: 08/01/08 -- establish care Routine gynecological examination 08/01/2008 08/15/2008 Overview: [facility] [place] Urinary calculus, unspecified 12/22/2007 Overview: First occurred in early 2006, again summer 2007 - total as of Dec 2007 Pain in joint, lower leg 12/11/2005 008 Hemorrhage of rectum and anus Abnormal maternal glucose tolerance, antepartum 08/01/2008 Overview: diet controlled documented as of this encounter (statuses as of 09/30/2021) [facility] History of Past illness Narrative* Problem Noted Date Resolved Date Low back pain 09/11/2013 10/06/2017 Buttock pain 09/11/2013 10/06/2017 Backache, unspecified 05/30/2012 10/06/2017 Pyoderma 05/07/2011 05/21/2016 Pruritus 05/07/2011 05/21/2016 Xerosis cutis 03/08/2011 05/21/2016 Spasm of muscle 05/21/2010 10/06/2017 Pyoderma, unspecified 12/21/2009 05/21/2016 Excoriation 09/08/2009 05/21/2016 Routine gynecological examination 09/26/2008 11/21/2011 Overview: [facility] [place] Poor growth, affecting management of mother, antepartum condition or complication 08/15/2008 09/26/2008 Routine general medical exam ination at a health care facility 08/01/2008 11/21/2011 Overview: 08/01/08 -- establish care Routine gynecological examination 08/01/2008 08/15/2008 Overview: [facility], [facility] Urinary calculus, unspecified 12/22/2007 Overview: First occurred in early 2006, again summer 2007 - total as of Dec 2007 Pain in joint, lower leg 12/11/2005 008 Hemorrhage of rectum and anus Abnormal maternal glucose tolerance, antepartum 08/01/2008 Overview: diet controlled documented as of this encounter (statuses as of 10/02/2021) [facility] History of Past illness Narrative* Problem Noted Date Resolved Date Low back pain 09/11/2013 10/06/2017 Buttock pain 09/11/2013 10/06/2017 Backache, unspecified 05/30/2012 10/06/2017 Pyoderma 05/07/2011 05/21/2016 Pruritus 05/07/2011 05/21/2016 Xerosis cutis 03/08/2011 05/21/2016 Spasm of muscle 05/21/2010 10/06/2017 Pyoderma, unspecified 12/21/2009 05/21/2016 Excoriation 09/08/2009 05/21/2016 Routine gynecological examination 09/26/2008 11/21/2011 Overview: [facility], [facility] Poor growth, affecting management of mother, antepartum condition or complication 08/15/2008 09/26/2008 Routine general medical exam ination at a health care facility 08/01/2008 11/21/2011 Overview: 08/01/08 -- establish care Routine gynecological examination 08/01/2008 08/15/2008 Overview: [facility], [facility] Urinary calculus, unspecified 12/22/2007 Overview: First occurred in early 2006, again summer total as of Dec 2007 Pain in joint, lower leg 12/11/2005 008 Hemorrhage of rectum and anus Abnormal maternal glucose tolerance, antepartum 08/01/2008 Overview: diet controlled documented as of this encounter (statuses as of 10/02/2021) [facility] History of Past illness Narrative* Problem Noted Date Resolved Date Low back pain 09/11/2013 10/06/2017 Buttock pain 09/11/2013 10/06/2017 Backache, unspecified 05/30/2012 10/06/2017 Pyoderma 05/07/2011 05/21/2016 Pruritus 05/07/2011 05/21/2016 Xerosis cutis 03/08/2011 05/21/2016 Spasm of muscle 05/21/2010 10/06/2017 Pyoderma, unspecified 12/21/2009 05/21/2016 Excoriation 09/08/2009 05/21/2016 Routine gynecological examination 09/26/2008 11/21/2011 Overview: [facility], [facility] [place] Poor growth, affecting management of mother, antepartum condition or complication 08/15/2008 09/26/2008 Routine general medical exam ination at a health care facility 08/01/2008 11/21/2011 Overview: 08/01/08 -- establish care Routine gynecological examination 08/01/2008 08/15/2008 Overview: [facility], [facility] [place] Urinary calculus, unspecified 12/22/2007 Overview: First occurred in early 2006, again summer 2007 - total as of Dec 2007 Pain in joint, lower leg 12/11/2005 008 Hemorrhage of rectum and anus Abnormal maternal glucose tolerance, antepartum 08/01/2008 Overview: diet controlled documented as of this encounter (statuses as of 10/07/2021) [facility] History of Past illness Narrative* Problem Noted Date Resolved Date Low back pain 09/11/2013 10/06/2017 Buttock pain 09/11/2013 10/06/2017 Backache, unspecified 05/30/2012 10/06/2017 Pyoderma 05/07/2011 05/21/2016 Pruritus 05/07/2011 05/21/2016 Xerosis cutis 03/08/2011 05/21/2016 Spasm of muscle 05/21/2010 10/06/2017 Pyoderma, unspecified 12/21/2009 05/21/2016 Excoriation 09/08/2009 05/21/2016 Routine gynecological examination 09/26/2008 11/21/2011 Overview: [facility], [facility] Poor growth, affecting management of mother, antepartum condition or complication 08/15/2008 09/26/2008 Routine general medical exam ination at a health care facility 08/01/2008 11/21/2011 Overview: 08/01/08 -- establish care Routine gynecological examination 08/01/2008 08/15/2008 Overview: [facility], [facility] [place] Urinary calculus, unspecified 12/22/2007 Overview: First occurred in early 2006, again summer 2007 - total as of Dec 2007 Pain in joint, lower leg 12/11/2005 008 Hemorrhage of rectum and anus Abnormal maternal glucose tolerance, antepartum 08/01/2008 Overview: diet controlled documented as of this encounter (statuses as of 10/21/2021) [facility] History of Past illness Narrative* Problem Noted Date Resolved Date Low back pain 09/11/2013 10/06/2017 Buttock pain 09/11/2013 10/06/2017 Backache, unspecified 05/30/2012 10/06/2017 Pyoderma 05/07/2011 05/21/2016 Pruritus 05/07/2011 05/21/2016 Xerosis cutis 03/08/2011 05/21/2016 Spasm of muscle 05/21/2010 10/06/2017 Pyoderma, unspecified 12/21/2009 05/21/2016 Excoriation 09/08/2009 05/21/2016 Routine gynecological examination 09/26/2008 11/21/2011 Overview: [facility], [facility] [place] Poor growth, affecting management of mother, antepartum condition or complication 08/15/2008 09/26/2008 Routine general medical exam ination at a health care facility 08/01/2008 11/21/2011 Overview: 08/01/08 -- establish care Routine gynecological examination 08/01/2008 08/15/2008 Overview: [facility], [facility] [place] Urinary calculus, unspecified 12/22/2007 Overview: First occurred in early 2006, again summer 2007 - total as of Dec 2007 Pain in joint, lower leg 12/11/2005 008 Hemorrhage of rectum and anus Abnormal maternal glucose tolerance, antepartum 08/01/2008 Overview: diet controlled documented as of this encounter (statuses as of 10/28/2021) [facility] History of Past illness Narrative* Problem Noted Date Resolved Date Low back pain 09/11/2013 10/06/2017 Buttock pain 09/11/2013 10/06/2017 Backache, unspecified 05/30/2012 10/06/2017 Pyoderma 05/07/2011 05/21/2016 Pruritus 05/07/2011 05/21/2016 Xerosis cutis 03/08/2011 05/21/2016 Spasm of muscle 05/21/2010 10/06/2017 Pyoderma, unspecified 12/21/2009 05/21/2016 Excoriation 09/08/2009 05/21/2016 Routine gynecological examination 09/26/2008 11/21/2011 Overview: [facility], [facility] [place] Poor growth, affecting management of mother, antepartum condition or complication 08/15/2008 09/26/2008 Routine general medical exam ination at a health care facility 08/01/2008 11/21/2011 Overview: 08/01/08 -- establish care Routine gynecological examination 08/01/2008 08/15/2008 Overview: [facility], [facility] [place] Urinary calculus, unspecified 12/22/2007 Overview: First occurred in early 2006, again summer 2007 - total as of Dec 2007 Pain in joint, lower leg 12/11/2005 008 Hemorrhage of rectum and anus Abnormal maternal glucose tolerance, antepartum 08/01/2008 Overview: diet controlled documented as of this encounter (statuses as of 11/11/2021) [facility] History of Past illness Narrative* Problem Noted Date Resolved Date Low back pain 09/11/2013 10/06/2017 Buttock pain 09/11/2013 10/06/2017 Backache, unspecified 05/30/2012 10/06/2017 Pyoderma 05/07/2011 05/21/2016 Pruritus 05/07/2011 05/21/2016 Xerosis cutis 03/08/2011 05/21/2016 Spasm of muscle 05/21/2010 10/06/2017 Pyoderma, unspecified 12/21/2009 05/21/2016 Excoriation 09/08/2009 05/21/2016 Routine gynecological examination 09/26/2008 11/21/2011 Overview: [facility], [facility] [place] Poor growth, affecting management of mother, antepartum condition or complication 08/15/2008 09/26/2008 Routine general medical exam ination at a health care facility 08/01/2008 11/21/2011 Overview: 08/01/08 -- establish care Routine gynecological examination 08/01/2008 08/15/2008 Overview: [facility], [facility] [place] Urinary calculus, unspecified 12/22/2007 Overview: First occurred in early 2006, again summer 2007 - total as of Dec 2007 Pain in joint, lower leg 12/11/2005 008 Hemorrhage of rectum and anus Abnormal maternal glucose tolerance, antepartum 08/01/2008 Overview: diet controlled documented as of this encounter (statuses as of 12/02/2021) [facility] History of Past illness Narrative* Problem Noted Date Resolved Date Low back pain 09/11/2013 10/06/2017 Buttock pain 09/11/2013 10/06/2017 Backache, unspecified 05/30/2012 10/06/2017 Pyoderma 05/07/2011 05/21/2016 Pruritus 05/07/2011 05/21/2016 Xerosis cutis 03/08/2011 05/21/2016 Spasm of muscle 05/21/2010 10/06/2017 Pyoderma, unspecified 12/21/2009 05/21/2016 Excoriation 09/08/2009 05/21/2016 Routine gynecological examination 09/26/2008 11/21/2011 Overview: [facility], [facility] [place] Poor growth, affecting management of mother, antepartum condition or complication 08/15/2008 09/26/2008 Routine general medical exam ination at a health care facility 08/01/2008 11/21/2011 Overview: 08/01/08 -- establish care Routine gynecological examination 08/01/2008 08/15/2008 Overview: [facility], [facility] [place] Urinary calculus, unspecified 12/22/2007 Overview: First occurred in early 2006, again summer 2007 - total as of Dec 2007 Pain in joint, lower leg 12/11/2005 008 Hemorrhage of rectum and anus Abnormal maternal glucose tolerance, antepartum 08/01/2008 Overview: diet controlled documented as of this encounter (statuses as of 12/09/2021) [facility] History of Past illness Narrative* Problem Noted Date Resolved Date Low back pain 09/11/2013 10/06/2017 Buttock pain 09/11/2013 10/06/2017 Backache, unspecified 05/30/2012 10/06/2017 Pyoderma 05/07/2011 05/21/2016 Pruritus 05/07/2011 05/21/2016 Xerosis cutis 03/08/2011 05/21/2016 Spasm of muscle 05/21/2010 10/06/2017 Pyoderma, unspecified 12/21/2009 05/21/2016 Excoriation 09/08/2009 05/21/2016 Routine gynecological examination 09/26/2008 11/21/2011 Overview: [facility], [facility] [place] Poor growth, affecting management of mother, antepartum condition or complication 08/15/2008 09/26/2008 Routine general medical exam ination at a health care facility 08/01/2008 11/21/2011 Overview: 08/01/08 -- establish care Routine gynecological examination 08/01/2008 08/15/2008 Overview: [facility], [facility] [place] Urinary calculus, unspecified 12/22/2007 Overview: First occurred in early 2006, again summer 2007 - total as of Dec 2007 Pain in joint, lower leg 12/11/2005 008 Hemorrhage of rectum and anus Abnormal maternal glucose tolerance, antepartum 08/01/2008 Overview: diet controlled documented as of this encounter (statuses as of 12/13/2021) [facility] History of Past illness Narrative* Problem Noted Date Resolved Date Low back pain 09/11/2013 10/06/2017 Buttock pain 09/11/2013 10/06/2017 Backache, unspecified 05/30/2012 10/06/2017 Pyoderma 05/07/2011 05/21/2016 Pruritus 05/07/2011 05/21/2016 Xerosis cutis 03/08/2011 05/21/2016 Spasm of muscle 05/21/2010 10/06/2017 Pyoderma, unspecified 12/21/2009 05/21/2016 Excoriation 09/08/2009 05/21/2016 Routine gynecological examination 09/26/2008 11/21/2011 Overview: [facility], [facility] [place] Poor growth, affecting management of mother, antepartum condition or complication 08/15/2008 09/26/2008 Routine general medical exam ination at a health care facility 08/01/2008 11/21/2011 Overview: 08/01/08 -- establish care Routine gynecological examination 08/01/2008 08/15/2008 Overview: [facility] [place] Urinary calculus, unspecified 12/22/2007 Overview: First occurred in early 2006, again summer 2007 - total as of Dec 2007 Pain in joint, lower leg 12/11/2005 008 Hemorrhage of rectum and anus Abnormal maternal glucose tolerance, antepartum 08/01/2008 Overview: diet controlled documented as of this encounter (statuses as of 12/23/2021) [facility] History of Past illness Narrative* Problem Noted Date Resolved Date Low back pain 09/11/2013 10/06/2017 Buttock pain 09/11/2013 10/06/2017 Backache, unspecified 05/30/2012 10/06/2017 Pyoderma 05/07/2011 05/21/2016 Pruritus 05/07/2011 05/21/2016 Xerosis cutis 03/08/2011 05/21/2016 Spasm of muscle 05/21/2010 10/06/2017 Pyoderma, unspecified 12/21/2009 05/21/2016 Excoriation 09/08/2009 05/21/2016 Routine gynecological examination 09/26/2008 11/21/2011 Overview: [facility], [facility] [place] Poor growth, affecting management of mother, antepartum condition or complication 08/15/2008 09/26/2008 Routine general medical exam ination at a health care facility 08/01/2008 11/21/2011 Overview: 08/01/08 -- establish care Routine gynecological examination 08/01/2008 08/15/2008 Overview: [facility], [facility] [place] Urinary calculus, unspecified 12/22/2007 Overview: First occurred in early 2006, again summer 2007 - total as of Dec 2007 Pain in joint, lower leg 12/11/2005 008 Hemorrhage of rectum and anus Abnormal maternal glucose tolerance, antepartum 08/01/2008 Overview: diet controlled documented as of this encounter (statuses as of 12/31/2021) [facility] History of Past illness Narrative* Problem Noted Date Resolved Date Low back pain 09/11/2013 10/06/2017 Buttock pain 09/11/2013 10/06/2017 Backache, unspecified 05/30/2012 10/06/2017 Pyoderma 05/07/2011 05/21/2016 Pruritus 05/07/2011 05/21/2016 Xerosis cutis 03/08/2011 05/21/2016 Spasm of muscle 05/21/2010 10/06/2017 Pyoderma, unspecified 12/21/2009 05/21/2016 Excoriation 09/08/2009 05/21/2016 Routine gynecological examination 09/26/2008 11/21/2011 Overview: [facility], [facility] [place] Poor growth, affecting management of mother, antepartum condition or complication 08/15/2008 09/26/2008 Routine general medical exam ination at a health care facility 08/01/2008 11/21/2011 Overview: 08/01/08 -- establish care Routine gynecological examination 08/01/2008 08/15/2008 Overview: [facility], [facility] [place] Urinary calculus, unspecified 12/22/2007 Overview: First occurred in early 2006, again summer 2007 - total as of Dec 2007 Pain in joint, lower leg 12/11/2005 008 Hemorrhage of rectum and anus Abnormal maternal glucose tolerance, antepartum 08/01/2008 Overview: diet controlled documented as of this encounter (statuses as of 02/06/2022) [facility] History of Past illness Narrative* Problem Noted Date Resolved Date Low back pain 09/11/2013 10/06/2017 Buttock pain 09/11/2013 10/06/2017 Backache, unspecified 05/30/2012 10/06/2017 Pyoderma 05/07/2011 05/21/2016 Pruritus 05/07/2011 05/21/2016 Xerosis cutis 03/08/2011 05/21/2016 Spasm of muscle 05/21/2010 10/06/2017 Pyoderma, unspecified 12/21/2009 05/21/2016 Excoriation 09/08/2009 05/21/2016 Routine gynecological examination 09/26/2008 11/21/2011 Overview: [facility], [facility] [place] Poor growth, affecting management of mother, antepartum condition or complication 08/15/2008 09/26/2008 Routine general medical exam ination at a health care facility 08/01/2008 11/21/2011 Overview: 08/01/08 -- establish care Routine gynecological examination 08/01/2008 08/15/2008 Overview: [facility], [facility] [place] Urinary calculus, unspecified 12/22/2007 Overview: First occurred in early 2006, again summer 2007 - total as of Dec 2007 Pain in joint, lower leg 12/11/2005 008 Hemorrhage of rectum and anus Abnormal maternal glucose tolerance, antepartum 08/01/2008 Overview: diet controlled documented as of this encounter (statuses as of 02/09/2022) [facility] History of Past illness Narrative* Problem Noted Date Resolved Date Low back pain 09/11/2013 10/06/2017 Buttock pain 09/11/2013 10/06/2017 Backache, unspecified 05/30/2012 10/06/2017 Pyoderma 05/07/2011 05/21/2016 Pruritus 05/07/2011 05/21/2016 Xerosis cutis 03/08/2011 05/21/2016 Spasm of muscle 05/21/2010 10/06/2017 Pyoderma, unspecified 12/21/2009 05/21/2016 Excoriation 09/08/2009 05/21/2016 Routine gynecological examination 09/26/2008 11/21/2011 Overview: [facility], [facility] [place] Poor growth, affecting management of mother, antepartum condition or complication 08/15/2008 09/26/2008 Routine general medical exam ination at a health care facility 08/01/2008 11/21/2011 Overview: 08/01/08 -- establish care Routine gynecological examination 08/01/2008 08/15/2008 Overview: [facility], [facility] [place] Urinary calculus, unspecified 12/22/2007 Overview: First occurred in early 2006, again summer 2007 - total as of Dec 2007 Pain in joint, lower leg 12/11/2005 008 Hemorrhage of rectum and anus Abnormal maternal glucose tolerance, antepartum 08/01/2008 Overview: diet controlled documented as of this encounter (statuses as of 02/17/2022) [facility] History of Past illness Narrative* Problem Noted Date Resolved Date Low back pain 09/11/2013 10/06/2017 Buttock pain 09/11/2013 10/06/2017 Backache, unspecified 05/30/2012 10/06/2017 Pyoderma 05/07/2011 05/21/2016 Pruritus 05/07/2011 05/21/2016 Xerosis cutis 03/08/2011 05/21/2016 Spasm of muscle 05/21/2010 10/06/2017 Pyoderma, unspecified 12/21/2009 05/21/2016 Excoriation 09/08/2009 05/21/2016 Routine gynecological examination 09/26/2008 11/21/2011 Overview: [facility], [facility] [place] Poor growth, affecting management of mother, antepartum condition or complication 08/15/2008 09/26/2008 Routine general medical exam ination at a health care facility 08/01/2008 11/21/2011 Overview: 08/01/08 -- establish care Routine gynecological examination 08/01/2008 08/15/2008 Overview: [facility], [facility] [place] Urinary calculus, unspecified 12/22/2007 Overview: First occurred in early 2006, again summer 2007 - total as of Dec 2007 Pain in joint, lower leg 12/11/2005 008 Hemorrhage of rectum and anus Abnormal maternal glucose tolerance, antepartum 08/01/2008 Overview: diet controlled documented as of this encounter (statuses as of 02/24/2022) [facility] History of Past illness Narrative* Problem Noted Date Resolved Date Low back pain 09/11/2013 10/06/2017 Buttock pain 09/11/2013 10/06/2017 Backache, unspecified 05/30/2012 10/06/2017 Pyoderma 05/07/2011 05/21/2016 Pruritus 05/07/2011 05/21/2016 Xerosis cutis 03/08/2011 05/21/2016 Spasm of muscle 05/21/2010 10/06/2017 Pyoderma, unspecified 12/21/2009 05/21/2016 Excoriation 09/08/2009 05/21/2016 Routine gynecological examination 09/26/2008 11/21/2011 Overview: [facility], [facility] [place] Poor growth, affecting management of mother, antepartum condition or complication 08/15/2008 09/26/2008 Routine general medical exam ination at a health care facility 08/01/2008 11/21/2011 Overview: 08/01/08 -- establish care Routine gynecological examination 08/01/2008 08/15/2008 Overview: [facility], [facility] [place] Urinary calculus, unspecified 12/22/2007 Overview: First occurred in early 2006, again summer 2007 - total as of Dec 2007 Pain in joint, lower leg 12/11/2005 008 Hemorrhage of rectum and anus Abnormal maternal glucose tolerance, antepartum 08/01/2008 Overview: diet controlled documented as of this encounter (statuses as of 02/24/2022) [facility] History of Past illness Narrative* Problem Noted Date Resolved Date Low back pain 09/11/2013 10/06/2017 Buttock pain 09/11/2013 10/06/2017 Backache, unspecified 05/30/2012 10/06/2017 Pyoderma 05/07/2011 05/21/2016 Pruritus 05/07/2011 05/21/2016 Xerosis cutis 03/08/2011 05/21/2016 Spasm of muscle 05/21/2010 10/06/2017 Pyoderma, unspecified 12/21/2009 05/21/2016 Excoriation 09/08/2009 05/21/2016 Routine gynecological examination 09/26/2008 11/21/2011 Overview: [facility], [facility] [place] Poor growth, affecting management of mother, antepartum condition or complication 08/15/2008 09/26/2008 Routine general medical exam ination at a health care facility 08/01/2008 11/21/2011 Overview: 08/01/08 -- establish care Routine gynecological examination 08/01/2008 08/15/2008 Overview: [facility], [facility] [place] Urinary calculus, unspecified 12/22/2007 Overview: First occurred in early 2006, again summer total as of Dec 2007 Pain in joint, lower leg 12/11/2005 008 Hemorrhage of rectum and anus Abnormal maternal glucose tolerance, antepartum 08/01/2008 Overview: diet controlled documented as of this encounter (statuses as of 02/25/2022) [facility] History of Past illness Narrative* Problem Noted Date Resolved Date Low back pain 09/11/2013 10/06/2017 Buttock pain 09/11/2013 10/06/2017 Backache, unspecified 05/30/2012 10/06/2017 Pyoderma 05/07/2011 05/21/2016 Pruritus 05/07/2011 05/21/2016 Xerosis cutis 03/08/2011 05/21/2016 Spasm of muscle 05/21/2010 10/06/2017 Pyoderma, unspecified 12/21/2009 05/21/2016 Excoriation 09/08/2009 05/21/2016 Routine gynecological examination 09/26/2008 11/21/2011 Overview: [facility], [facility] [place] Poor growth, affecting management of mother, antepartum condition or complication 08/15/2008 09/26/2008 Routine general medical exam ination at a health care facility 08/01/2008 11/21/2011 Overview: 08/01/08 -- establish care Routine gynecological examination 08/01/2008 08/15/2008 Overview: [facility], [facility] [place] Urinary calculus, unspecified 12/22/2007 Overview: First occurred in early 2006, again summer 2007 - total as of Dec 2007 Pain in joint, lower leg 12/11/2005 008 Hemorrhage of rectum and anus Abnormal maternal glucose tolerance, antepartum 08/01/2008 Overview: diet controlled documented as of this encounter (statuses as of 03/02/2022) [facility] History of Past illness Narrative* Problem Noted Date Resolved Date Low back pain 09/11/2013 10/06/2017 Buttock pain 09/11/2013 10/06/2017 Backache, unspecified 05/30/2012 10/06/2017 Pyoderma 05/07/2011 05/21/2016 Pruritus 05/07/2011 05/21/2016 Xerosis cutis 03/08/2011 05/21/2016 Spasm of muscle 05/21/2010 10/06/2017 Pyoderma, unspecified 12/21/2009 05/21/2016 Excoriation 09/08/2009 05/21/2016 Routine gynecological examination 09/26/2008 11/21/2011 Overview: [facility], [facility] [place] Poor growth, affecting management of mother, antepartum condition or complication 08/15/2008 09/26/2008 Routine general medical exam ination at a health care facility 08/01/2008 11/21/2011 Overview: 08/01/08 -- establish care Routine gynecological examination 08/01/2008 08/15/2008 Overview: [facility], [facility] [place] Urinary calculus, unspecified 12/22/2007 Overview: First occurred in early 2006, again summer 2007 - total as of Dec 2007 Pain in joint, lower leg 12/11/2005 008 Hemorrhage of rectum and anus Abnormal maternal glucose tolerance, antepartum 08/01/2008 Overview: diet controlled documented as of this encounter (statuses as of 03/13/2022) [facility] History of Past illness Narrative* Problem Noted Date Resolved Date Low back pain 09/11/2013 10/06/2017 Buttock pain 09/11/2013 10/06/2017 Backache, unspecified 05/30/2012 10/06/2017 Pyoderma 05/07/2011 05/21/2016 Pruritus 05/07/2011 05/21/2016 Xerosis cutis 03/08/2011 05/21/2016 Spasm of muscle 05/21/2010 10/06/2017 Pyoderma, unspecified 12/21/2009 05/21/2016 Excoriation 09/08/2009 05/21/2016 Routine gynecological examination 09/26/2008 11/21/2011 Overview: [facility], [facility] [place] Poor growth, affecting management of mother, antepartum condition or complication 08/15/2008 09/26/2008 Routine general medical exam ination at a health care facility 08/01/2008 11/21/2011 Overview: 08/01/08 -- establish care Routine gynecological examination 08/01/2008 08/15/2008 Overview: [facility], [facility] [place] Urinary calculus, unspecified 12/22/2007 Overview: First occurred in early 2006, again summer 2007 - total as of Dec 2007 Pain in joint, lower leg 12/11/2005 008 Hemorrhage of rectum and anus Abnormal maternal glucose tolerance, antepartum 08/01/2008 Overview: diet controlled documented as of this encounter (statuses as of 03/13/2022) [facility] of Past illness Narrative* Problem Noted Date Resolved Date Low back pain 09/11/2013 10/06/2017 Buttock pain 09/11/2013 10/06/2017 Backache, unspecified 05/30/2012 10/06/2017 Pyoderma 05/07/2011 05/21/2016 Pruritus 05/07/2011 05/21/2016 Xerosis cutis 03/08/2011 05/21/2016 Spasm of muscle 05/21/2010 10/06/2017 Pyoderma, unspecified 12/21/2009 05/21/2016 Excoriation 09/08/2009 05/21/2016 Routine gynecological examination 09/26/2008 11/21/2011 Overview: [facility], [facility] [place] Poor growth, affecting management of mother, antepartum condition or complication 08/15/2008 09/26/2008 Routine general medical exam ination at a health care facility 08/01/2008 11/21/2011 Overview: 08/01/08 -- establish care Routine gynecological examination 08/01/2008 08/15/2008 Overview: [facility], [facility] [place] Urinary calculus, unspecified 12/22/2007 Overview: First occurred in early 2006, again summer 2007 - total as of Dec 2007 Pain in joint, lower leg 12/11/2005 008 Hemorrhage of rectum and anus Abnormal maternal glucose tolerance, antepartum 08/01/2008 Overview: diet controlled documented as of this encounter (statuses as of 03/16/2022) [facility] History of Past illness Narrative* Problem Noted Date Resolved Date Low back pain 09/11/2013 10/06/2017 Buttock pain 09/11/2013 10/06/2017 Backache, unspecified 05/30/2012 10/06/2017 Pyoderma 05/07/2011 05/21/2016 Pruritus 05/07/2011 05/21/2016 Xerosis cutis 03/08/2011 05/21/2016 Spasm of muscle 05/21/2010 10/06/2017 Pyoderma, unspecified 12/21/2009 05/21/2016 Excoriation 09/08/2009 05/21/2016 Routine gynecological examination 09/26/2008 11/21/2011 Overview: [facility], [facility] [place] Poor growth, affecting management of mother, antepartum condition or complication 08/15/2008 09/26/2008 Routine general medical exam ination at a health care facility 08/01/2008 11/21/2011 Overview: 08/01/08 -- establish care Routine gynecological examination 08/01/2008 08/15/2008 Overview: [facility], [facility] [place] Urinary calculus, unspecified 12/22/2007 Overview: First occurred in early 2006, again summer 2007 - total as of Dec 2007 Pain in joint, lower leg 12/11/2005 008 Hemorrhage of rectum and anus Abnormal maternal glucose tolerance, antepartum 08/01/2008 Overview: diet controlled documented as of this encounter (statuses as of 04/01/2022) [facility] of Past illness Narrative* Problem Noted Date Resolved Date Low back pain 09/11/2013 10/06/2017 Buttock pain 09/11/2013 10/06/2017 Backache, unspecified 05/30/2012 10/06/2017 Pyoderma 05/07/2011 05/21/2016 Pruritus 05/07/2011 05/21/2016 Xerosis cutis 03/08/2011 05/21/2016 Spasm of muscle 05/21/2010 10/06/2017 Pyoderma, unspecified 12/21/2009 05/21/2016 Excoriation 09/08/2009 05/21/2016 Routine gynecological examination 09/26/2008 11/21/2011 Overview: [facility], [facility] [place] Poor growth, affecting management of mother, antepartum condition or complication 08/15/2008 09/26/2008 Routine general medical exam ination at a health care facility 08/01/2008 11/21/2011 Overview: 08/01/08 -- establish care Routine gynecological examination 08/01/2008 08/15/2008 Overview: [facility], [facility] [place] Urinary calculus, unspecified 12/22/2007 Overview: First occurred in early 2006, again summer 2007 - total as of Dec 2007 Pain in joint, lower leg 12/11/2005 008 Hemorrhage of rectum and anus Abnormal maternal glucose tolerance, antepartum 08/01/2008 Overview: diet controlled documented as of this encounter (statuses as of 04/01/2022) [facility] History of Past illness Narrative* Problem Noted Date Resolved Date Low back pain 09/11/2013 10/06/2017 Buttock pain 09/11/2013 10/06/2017 Backache, unspecified 05/30/2012 10/06/2017 Pyoderma 05/07/2011 05/21/2016 Pruritus 05/07/2011 05/21/2016 Xerosis cutis 03/08/2011 05/21/2016 Spasm of muscle 05/21/2010 10/06/2017 Pyoderma, unspecified 12/21/2009 05/21/2016 Excoriation 09/08/2009 05/21/2016 Routine gynecological examination 09/26/2008 11/21/2011 Overview: [facility], [facility] [place] Poor growth, affecting management of mother, antepartum condition or complication 08/15/2008 09/26/2008 Routine general medical exam ination at a health care facility 08/01/2008 11/21/2011 Overview: 08/01/08 -- establish care Routine gynecological examination 08/01/2008 08/15/2008 Overview: [facility], [facility] [place] Urinary calculus, unspecified 12/22/2007 Overview: First occurred in early 2006, again summer 2007 - total as of Dec 2007 Pain in joint, lower leg 12/11/2005 008 Hemorrhage of rectum and anus Abnormal maternal glucose tolerance, antepartum 08/01/2008 Overview: diet controlled documented as of this encounter (statuses as of 04/07/2022) [facility] History of Past illness Narrative* Problem Noted Date Resolved Date Low back pain 09/11/2013 10/06/2017 Buttock pain 09/11/2013 10/06/2017 Backache, unspecified 05/30/2012 10/06/2017 Pyoderma 05/07/2011 05/21/2016 Pruritus 05/07/2011 05/21/2016 Xerosis cutis 03/08/2011 05/21/2016 Spasm of muscle 05/21/2010 10/06/2017 Pyoderma, unspecified 12/21/2009 05/21/2016 Excoriation 09/08/2009 05/21/2016 Routine gynecological examination 09/26/2008 11/21/2011 Overview: [facility], [facility] [place] Poor growth, affecting management of mother, antepartum condition or complication 08/15/2008 09/26/2008 Routine general medical exam ination at a health care facility 08/01/2008 11/21/2011 Overview: 08/01/08 -- establish care Routine gynecological examination 08/01/2008 08/15/2008 Overview: [facility], [facility] [place] Urinary calculus, unspecified 12/22/2007 Overview: First occurred in early 2006, again summer 2007 - total as of Dec 2007 Pain in joint, lower leg 12/11/2005 008 Hemorrhage of rectum and anus Abnormal maternal glucose tolerance, antepartum 08/01/2008 Overview: diet controlled documented as of this encounter (statuses as of 04/10/2022) [facility] History of Past illness Narrative* Problem Noted Date Resolved Date Low back pain 09/11/2013 10/06/2017 Buttock pain 09/11/2013 10/06/2017 Backache, unspecified 05/30/2012 10/06/2017 Pyoderma 05/07/2011 05/21/2016 Pruritus 05/07/2011 05/21/2016 Xerosis cutis 03/08/2011 05/21/2016 Spasm of muscle 05/21/2010 10/06/2017 Pyoderma, unspecified 12/21/2009 05/21/2016 Excoriation 09/08/2009 05/21/2016 Routine gynecological examination 09/26/2008 11/21/2011 Overview: [facility], [facility] [place] Poor growth, affecting management of mother, antepartum condition or complication 08/15/2008 09/26/2008 Routine general medical exam ination at a health care facility 08/01/2008 11/21/2011 Overview: 08/01/08 -- establish care Routine gynecological examination 08/01/2008 08/15/2008 Overview: [facility], [facility] [place] Urinary calculus, unspecified 12/22/2007 Overview: First occurred in early 2006, again summer 2007 - total as of Dec 2007 Pain in joint, lower leg 12/11/2005 008 Hemorrhage of rectum and anus Abnormal maternal glucose tolerance, antepartum 08/01/2008 Overview: diet controlled documented as of this encounter (statuses as of 04/10/2022) [facility] History of Past illness Narrative* Problem Noted Date Resolved Date Low back pain 09/11/2013 10/06/2017 Buttock pain 09/11/2013 10/06/2017 Backache, unspecified 05/30/2012 10/06/2017 Pyoderma 05/07/2011 05/21/2016 Pruritus 05/07/2011 05/21/2016 Xerosis cutis 03/08/2011 05/21/2016 Spasm of muscle 05/21/2010 10/06/2017 Pyoderma, unspecified 12/21/2009 05/21/2016 Excoriation 09/08/2009 05/21/2016 Routine gynecological examination 09/26/2008 11/21/2011 Overview: [facility], [facility] [place] Poor growth, affecting management of mother, antepartum condition or complication 08/15/2008 09/26/2008 Routine general medical exam ination at a health care facility 08/01/2008 11/21/2011 Overview: 08/01/08 -- establish care Routine gynecological examination 08/01/2008 08/15/2008 Overview: [facility], [facility] [place] Urinary calculus, unspecified 12/22/2007 Overview: First occurred in early 2006, again summer 2007 - total as of Dec 2007 Pain in joint, lower leg 12/11/2005 008 Hemorrhage of rectum and anus Abnormal maternal glucose tolerance, antepartum 08/01/2008 Overview: diet controlled documented as of this encounter (statuses as of 04/14/2022) [facility] History of Past illness Narrative* Problem Noted Date Resolved Date Low back pain 09/11/2013 10/06/2017 Buttock pain 09/11/2013 10/06/2017 Backache, unspecified 05/30/2012 10/06/2017 Pyoderma 05/07/2011 05/21/2016 Pruritus 05/07/2011 05/21/2016 Xerosis cutis 03/08/2011 05/21/2016 Spasm of muscle 05/21/2010 10/06/2017 Pyoderma, unspecified 12/21/2009 05/21/2016 Excoriation 09/08/2009 05/21/2016 Routine gynecological examination 09/26/2008 11/21/2011 Overview: [facility], [facility] [place] Poor growth, affecting management of mother, antepartum condition or complication 08/15/2008 09/26/2008 Routine general medical exam ination at a health care facility 08/01/2008 11/21/2011 Overview: 08/01/08 -- establish care Routine gynecological examination 08/01/2008 08/15/2008 Overview: [facility], [facility] [place] Urinary calculus, unspecified 12/22/2007 Overview: First occurred in early 2006, again summer 2007 - total as of Dec 2007 Pain in joint, lower leg 12/11/2005 008 Hemorrhage of rectum and anus Abnormal maternal glucose tolerance, antepartum 08/01/2008 Overview: diet controlled documented as of this encounter (statuses as of 04/21/2022) [facility] History of Past illness Narrative* Problem Noted Date Resolved Date Low back pain 09/11/2013 10/06/2017 Buttock pain 09/11/2013 10/06/2017 Backache, unspecified 05/30/2012 10/06/2017 Pyoderma 05/07/2011 05/21/2016 Pruritus 05/07/2011 05/21/2016 Xerosis cutis 03/08/2011 05/21/2016 Spasm of muscle 05/21/2010 10/06/2017 Pyoderma, unspecified 12/21/2009 05/21/2016 Excoriation 09/08/2009 05/21/2016 Routine gynecological examination 09/26/2008 11/21/2011 Overview: [facility], [facility] [place] Poor growth, affecting management of mother, antepartum condition or complication 08/15/2008 09/26/2008 Routine general medical exam ination at a health care facility 08/01/2008 11/21/2011 Overview: 08/01/08 -- establish care Routine gynecological examination 08/01/2008 08/15/2008 Overview: [facility], [facility] [place] Urinary calculus, unspecified 12/22/2007 Overview: First occurred in early 2006, again summer 2007 - total as of Dec 2007 Pain in joint, lower leg 12/11/2005 008 Hemorrhage of rectum and anus Abnormal maternal glucose tolerance, antepartum 08/01/2008 Overview: diet controlled documented as of this encounter (statuses as of 04/22/2022) [facility] History of Past illness Narrative* Problem Noted Date Resolved Date Low back pain 09/11/2013 10/06/2017 Buttock pain 09/11/2013 10/06/2017 Backache, unspecified 05/30/2012 10/06/2017 Pyoderma 05/07/2011 05/21/2016 Pruritus 05/07/2011 05/21/2016 Xerosis cutis 03/08/2011 05/21/2016 Spasm of muscle 05/21/2010 10/06/2017 Pyoderma, unspecified 12/21/2009 05/21/2016 Excoriation 09/08/2009 05/21/2016 Routine gynecological examination 09/26/2008 11/21/2011 Overview: [facility], [facility] [place] Poor growth, affecting management of mother, antepartum condition or complication 08/15/2008 09/26/2008 Routine general medical exam ination at a health care facility 08/01/2008 11/21/2011 Overview: 08/01/08 -- establish care Routine gynecological examination 08/01/2008 08/15/2008 Overview: [facility], [facility] [place] Urinary calculus, unspecified 12/22/2007 Overview: First occurred in early 2006, again summer 2007 - total as of Dec 2007 Pain in joint, lower leg 12/11/2005 008 Hemorrhage of rectum and anus Abnormal maternal glucose tolerance, antepartum 08/01/2008 Overview: diet controlled documented as of this encounter (statuses as of 05/31/2022) [facility] History of Past illness Narrative* Problem Noted Date Resolved Date Low back pain 09/11/2013 10/06/2017 Buttock pain 09/11/2013 10/06/2017 Backache, unspecified 05/30/2012 10/06/2017 Pyoderma 05/07/2011 05/21/2016 Pruritus 05/07/2011 05/21/2016 Xerosis cutis 03/08/2011 05/21/2016 Spasm of muscle 05/21/2010 10/06/2017 Pyoderma, unspecified 12/21/2009 05/21/2016 Excoriation 09/08/2009 05/21/2016 Routine gynecological examination 09/26/2008 11/21/2011 Overview: [facility], [facility] [place] Poor growth, affecting management of mother, antepartum condition or complication 08/15/2008 09/26/2008 Routine general medical exam ination at a health care facility 08/01/2008 11/21/2011 Overview: 08/01/08 -- establish care Routine gynecological examination 08/01/2008 08/15/2008 Overview: [facility], [facility] [place] Urinary calculus, unspecified 12/22/2007 Overview: First occurred in early 2006, again summer 2007 - total as of Dec 2007 Pain in joint, lower leg 12/11/2005 008 Hemorrhage of rectum and anus Abnormal maternal glucose tolerance, antepartum 08/01/2008 Overview: diet controlled documented as of this encounter (statuses as of 06/11/2022) [facility] History of Past illness Narrative* Problem Noted Date Resolved Date Low back pain 09/11/2013 10/06/2017 Buttock pain 09/11/2013 10/06/2017 Backache, unspecified 05/30/2012 10/06/2017 Pyoderma 05/07/2011 05/21/2016 Pruritus 05/07/2011 05/21/2016 Xerosis cutis 03/08/2011 05/21/2016 Spasm of muscle 05/21/2010 10/06/2017 Pyoderma, unspecified 12/21/2009 05/21/2016 Excoriation 09/08/2009 05/21/2016 Routine gynecological examination 09/26/2008 11/21/2011 Overview: [facility], [facility] [place] Poor growth, affecting management of mother, antepartum condition or complication 08/15/2008 09/26/2008 Routine general medical exam ination at a health care facility 08/01/2008 11/21/2011 Overview: 08/01/08 -- establish care Routine gynecological examination 08/01/2008 08/15/2008 Overview: [facility], [facility] [place] Urinary calculus, unspecified 12/22/2007 Overview: First occurred in early 2006, again summer 2007 - total as of Dec 2007 Pain in joint, lower leg 12/11/2005 008 Hemorrhage of rectum and anus Abnormal maternal glucose tolerance, antepartum 08/01/2008 Overview: diet controlled documented as of this encounter (statuses as of 09/02/2022) [facility] History of Past illness Narrative* Problem Noted Date Resolved Date Low back pain 09/11/2013 10/06/2017 Buttock pain 09/11/2013 10/06/2017 Backache, unspecified 05/30/2012 10/06/2017 Pyoderma 05/07/2011 05/21/2016 Pruritus 05/07/2011 05/21/2016 Xerosis cutis 03/08/2011 05/21/2016 Spasm of muscle 05/21/2010 10/06/2017 Pyoderma, unspecified 12/21/2009 05/21/2016 Excoriation 09/08/2009 05/21/2016 Routine gynecological examination 09/26/2008 11/21/2011 Overview: [facility], [facility] [place] Poor growth, affecting management of mother, antepartum condition or complication 08/15/2008 09/26/2008 Routine general medical exam ination at a health care facility 08/01/2008 11/21/2011 Overview: 08/01/08 -- establish care Routine gynecological examination 08/01/2008 08/15/2008 Overview: [facility], [facility] [place] Urinary calculus, unspecified 12/22/2007 Overview: First occurred in early 2006, again summer 2007 - total as of Dec 2007 Pain in joint, lower leg 12/11/2005 008 Hemorrhage of rectum and anus Abnormal maternal glucose tolerance, antepartum 08/01/2008 Overview: diet controlled documented as of this encounter (statuses as of 09/10/2022) [facility] History of Past illness Narrative* Problem Noted Date Resolved Date Low back pain 09/11/2013 10/06/2017 Buttock pain 09/11/2013 10/06/2017 Backache, unspecified 05/30/2012 10/06/2017 Pyoderma 05/07/2011 05/21/2016 Pruritus 05/07/2011 05/21/2016 Xerosis cutis 03/08/2011 05/21/2016 Spasm of muscle 05/21/2010 10/06/2017 Pyoderma, unspecified 12/21/2009 05/21/2016 Excoriation 09/08/2009 05/21/2016 Routine gynecological examination 09/26/2008 11/21/2011 Overview: [facility], [facility] [place] Poor growth, affecting management of mother, antepartum condition or complication 08/15/2008 09/26/2008 Routine general medical exam ination at a health care facility 08/01/2008 11/21/2011 Overview: 08/01/08 -- establish care Routine gynecological examination 08/01/2008 08/15/2008 Overview: [facility], [facility] [place] Urinary calculus, unspecified 12/22/2007 Overview: First occurred in early 2006, again summer 2007 - total as of Dec 2007 Pain in joint, lower leg 12/11/2005 008 Hemorrhage of rectum and anus Abnormal maternal glucose tolerance, antepartum 08/01/2008 Overview: diet controlled documented as of this encounter (statuses as of 09/10/2022) [facility] History of Past illness Narrative* Problem Noted Date Resolved Date Low back pain 09/11/2013 10/06/2017 Buttock pain 09/11/2013 10/06/2017 Backache, unspecified 05/30/2012 10/06/2017 Pyoderma 05/07/2011 05/21/2016 Pruritus 05/07/2011 05/21/2016 Xerosis cutis 03/08/2011 05/21/2016 Spasm of muscle 05/21/2010 10/06/2017 Pyoderma, unspecified 12/21/2009 05/21/2016 Excoriation 09/08/2009 05/21/2016 Routine gynecological examination 09/26/2008 11/21/2011 Overview: [facility], [facility] [place] Poor growth, affecting management of mother, antepartum condition or complication 08/15/2008 09/26/2008 Routine general medical exam ination at a health care facility 08/01/2008 11/21/2011 Overview: 08/01/08 -- establish care Routine gynecological examination 08/01/2008 08/15/2008 Overview: [facility], [facility] [place] Urinary calculus, unspecified 12/22/2007 Overview: First occurred in early 2006, again summer 2007 - total as of Dec 2007 Pain in joint, lower leg 12/11/2005 008 Hemorrhage of rectum and anus Abnormal maternal glucose tolerance, antepartum 08/01/2008 Overview: diet controlled documented as of this encounter (statuses as of 09/11/2022) [facility] History of Past illness Narrative* Problem Noted Date Resolved Date Low back pain 09/11/2013 10/06/2017 Buttock pain 09/11/2013 10/06/2017 Backache, unspecified 05/30/2012 10/06/2017 Pyoderma 05/07/2011 05/21/2016 Pruritus 05/07/2011 05/21/2016 Xerosis cutis 03/08/2011 05/21/2016 Spasm of muscle 05/21/2010 10/06/2017 Pyoderma, unspecified 12/21/2009 05/21/2016 Excoriation 09/08/2009 05/21/2016 Routine gynecological examination 09/26/2008 11/21/2011 Overview: [facility], [facility] [place] Poor growth, affecting management of mother, antepartum condition or complication 08/15/2008 09/26/2008 Routine general medical exam ination at a health care facility 08/01/2008 11/21/2011 Overview: 08/01/08 -- establish care Routine gynecological examination 08/01/2008 08/15/2008 Overview: [facility], [facility] [place] Urinary calculus, unspecified 12/22/2007 Overview: First occurred in early 2006, again summer 2007 - total as of Dec 2007 Pain in joint, lower leg 12/11/2005 008 Hemorrhage of rectum and anus Abnormal maternal glucose tolerance, antepartum 08/01/2008 Overview: diet controlled documented as of this encounter (statuses as of 09/16/2022) [facility] History of Past illness Narrative* Problem Noted Date Resolved Date Low back pain 09/11/2013 10/06/2017 Buttock pain 09/11/2013 10/06/2017 Backache, unspecified 05/30/2012 10/06/2017 Pyoderma 05/07/2011 05/21/2016 Pruritus 05/07/2011 05/21/2016 Xerosis cutis 03/08/2011 05/21/2016 Spasm of muscle 05/21/2010 10/06/2017 Pyoderma, unspecified 12/21/2009 05/21/2016 Excoriation 09/08/2009 05/21/2016 Routine gynecological examination 09/26/2008 11/21/2011 Overview: [facility], [facility] [place] Poor growth, affecting management of mother, antepartum condition or complication 08/15/2008 09/26/2008 Routine general medical exam ination at a health care facility 08/01/2008 11/21/2011 Overview: 08/01/08 -- establish care Routine gynecological examination 08/01/2008 08/15/2008 Overview: [facility], [facility] [place] Urinary calculus, unspecified 12/22/2007 Overview: First occurred in early 2006, again summer 2007 - total as of Dec 2007 Pain in joint, lower leg 12/11/2005 008 Hemorrhage of rectum and anus Abnormal maternal glucose tolerance, antepartum 08/01/2008 Overview: diet controlled documented as of this encounter (statuses as of 09/30/2022) [facility] History of Past illness Narrative* Problem Noted Date Diagnosed Date Resolved Date Low back pain 09/11/2013 10/06/2017 Buttock pain 09/11/2013 10/06/2017 Backache, unspecified 05/30/20122017 Pyoderma 05/07/2011 05/21/2016 Pruritus 05/07/2011 05/21/2016 Xerosis cutis 03/08/2011 05/21/2016 Spasm of muscle 05/21/2010 10/06/2017 Pyoderma, unspecified 12/21/20092016 Excoriation 09/08/2009 05/21/2016 Routine gynecological examination 09/26/2008 11/21/2011 Overview: [facility], [facility] [place] Poor growth, affecting management of mother, antepartum condition or complication 08/15/2008 09/26/2008 Routine general medical exam ination at a health care facility 08/01/2008 11/21/2011 Overview: 08/01/08 -- establish care Routine gynecological examination 08/01/2008 08/15/2008 Overview: [facility], [facility] [place] Urinary calculus, unspecified 12/22/2007 10/06/2017 Overview: First occurred in early 2006, again summer 2007 - total as of Dec 2007 Pain in joint, lower leg 12/11/2005 Hemorrhage of rectum and anus 08/01/2008 Abnormal maternal glucose to lerance, antepartum 08/01/2008 Overview: diet controlled documented as of this encounter (statuses as of 10/09/2022) [facility] of Past illness Narrative* Problem Noted Date Diagnosed Date Resolved Date Low back pain 09/11/2013 10/06/2017 Buttock pain 09/11/2013 10/06/2017 Backache, unspecified 05/30/20122017 Pyoderma 05/07/2011 05/21/2016 Pruritus 05/07/2011 05/21/2016 Xerosis cutis 03/08/2011 05/21/2016 Spasm of muscle 05/21/2010 10/06/2017 Pyoderma, unspecified 12/21/20092016 Excoriation 09/08/2009 05/21/2016 Routine gynecological examination 09/26/2008 11/21/2011 Overview: [facility], [facility] [place] Poor growth, affecting management of mother, antepartum condition or complication 08/15/2008 09/26/2008 Routine general medical exam ination at a health care facility 08/01/2008 11/21/2011 Overview: 08/01/08 -- establish care Routine gynecological examination 08/01/2008 08/15/2008 Overview: [facility], [facility] [place] Urinary calculus, unspecified 12/22/2007 10/06/2017 Overview: First occurred in early 2006, again summer 2007 - total as of Dec 2007 Pain in joint, lower leg 12/11/2005 Hemorrhage of rectum and anus 08/01/2008 Abnormal maternal glucose to lerance, antepartum 08/01/2008 Overview: diet controlled documented as of this encounter (statuses as of 11/12/2022) [facility] of Past illness Narrative* Problem Noted Date Diagnosed Date Resolved Date Low back pain 09/11/2013 10/06/2017 Buttock pain 09/11/2013 10/06/2017 Backache, unspecified 05/30/20122017 Pyoderma 05/07/2011 05/21/2016 Pruritus 05/07/2011 05/21/2016 Xerosis cutis 03/08/2011 05/21/2016 Spasm of muscle 05/21/2010 10/06/2017 Pyoderma, unspecified 12/21/20092016 Excoriation 09/08/2009 05/21/2016 Routine gynecological examination 09/26/2008 11/21/2011 Overview: [facility], [facility] [place] Poor growth, affecting management of mother, antepartum condition or complication 08/15/2008 09/26/2008 Routine general medical exam ination at a health care facility 08/01/2008 11/21/2011 Overview: 08/01/08 -- establish care Routine gynecological examination 08/01/2008 08/15/2008 Overview: [facility], [facility] [place] Urinary calculus, unspecified 12/22/2007 10/06/2017 Overview: First occurred in early 2006, again summer 2007 - total as of Dec 2007 Pain in joint, lower leg 12/11/2005 Hemorrhage of rectum and anus 08/01/2008 Abnormal maternal glucose to lerance, antepartum 08/01/2008 Overview: diet controlled documented as of this encounter (statuses as of 11/14/2022) [facility] of Past illness Narrative* Problem Noted Date Diagnosed Date Resolved Date Low back pain 09/11/2013 10/06/2017 Buttock pain 09/11/2013 10/06/2017 Backache, unspecified 05/30/20122017 Pyoderma 05/07/2011 05/21/2016 Pruritus 05/07/2011 05/21/2016 Xerosis cutis 03/08/2011 05/21/2016 Spasm of muscle 05/21/2010 10/06/2017 Pyoderma, unspecified 12/21/20092016 Excoriation 09/08/2009 05/21/2016 Routine gynecological examination 09/26/2008 11/21/2011 Overview: [facility], [facility] [place] Poor growth, affecting management of mother, antepartum condition or complication 08/15/2008 09/26/2008 Routine general medical exam ination at a health care facility 08/01/2008 11/21/2011 Overview: 08/01/08 -- establish care Routine gynecological examination 08/01/2008 08/15/2008 Overview: [facility], [facility] [place] Urinary calculus, unspecified 12/22/2007 10/06/2017 Overview: First occurred in early 2006, again summer 2007 - total as of Dec 2007 Pain in joint, lower leg 12/11/2005 Hemorrhage of rectum and anus 08/01/2008 Abnormal maternal glucose to lerance, antepartum 08/01/2008 Overview: diet controlled documented as of this encounter (statuses as of 11/27/2022) [facility] of Past illness Narrative* Problem Noted Date Diagnosed Date Resolved Date Low back pain 09/11/2013 10/06/2017 Buttock pain 09/11/2013 10/06/2017 Backache, unspecified 05/30/20122017 Pyoderma 05/07/2011 05/21/2016 Pruritus 05/07/2011 05/21/2016 Xerosis cutis 03/08/2011 05/21/2016 Spasm of muscle 05/21/2010 10/06/2017 Pyoderma, unspecified 12/21/20092016 Excoriation 09/08/2009 05/21/2016 Routine gynecological examination 09/26/2008 11/21/2011 Overview: [facility], [facility] [place] Poor growth, affecting management of mother, antepartum condition or complication 08/15/2008 09/26/2008 Routine general medical exam ination at a health care facility 08/01/2008 11/21/2011 Overview: 08/01/08 -- establish care Routine gynecological examination 08/01/2008 08/15/2008 Overview: [facility], [facility] [place] Urinary calculus, unspecified 12/22/2007 10/06/2017 Overview: First occurred in early 2006, again summer 2007 - total as of Dec 2007 Pain in joint, lower leg 12/11/2005 Hemorrhage of rectum and anus 08/01/2008 Abnormal maternal glucose to lerance, antepartum 08/01/2008 Overview: diet controlled documented as of this encounter (statuses as of 12/03/2022) [facility] of Past illness Narrative* Problem Noted Date Diagnosed Date Resolved Date Low back pain 09/11/2013 10/06/2017 Buttock pain 09/11/2013 10/06/2017 Backache, unspecified 05/30/20122017 Pyoderma 05/07/2011 05/21/2016 Pruritus 05/07/2011 05/21/2016 Xerosis cutis 03/08/2011 05/21/2016 Spasm of muscle 05/21/2010 10/06/2017 Pyoderma, unspecified 12/21/20092016 Excoriation 09/08/2009 05/21/2016 Routine gynecological examination 09/26/2008 11/21/2011 Overview: [facility], [facility] [place] Poor growth, affecting management of mother, antepartum condition or complication 08/15/2008 09/26/2008 Routine general medical exam ination at a health care facility 08/01/2008 11/21/2011 Overview: 08/01/08 -- establish care Routine gynecological examination 08/01/2008 08/15/2008 Overview: [facility], [facility] [place] Urinary calculus, unspecified 12/22/2007 10/06/2017 Overview: First occurred in early 2006, again summer 2007 - total as of Dec 2007 Pain in joint, lower leg 12/11/2005 Hemorrhage of rectum and anus 08/01/2008 Abnormal maternal glucose to lerance, antepartum 08/01/2008 Overview: diet controlled documented as of this encounter (statuses as of 12/07/2022) [facility] History of Past illness Narrative* Problem Noted Date Diagnosed Date Resolved Date Low back pain 09/11/2013 10/06/2017 Buttock pain 09/11/2013 10/06/2017 Backache, unspecified 05/30/20122017 Pyoderma 05/07/2011 05/21/2016 Pruritus 05/07/2011 05/21/2016 Xerosis cutis 03/08/2011 05/21/2016 Spasm of muscle 05/21/2010 10/06/2017 Pyoderma, unspecified 12/21/20092016 Excoriation 09/08/2009 05/21/2016 Routine gynecological examination 09/26/2008 11/21/2011 Overview: [facility], [facility] [place] Poor growth, affecting management of mother, antepartum condition or complication 08/15/2008 09/26/2008 Routine general medical exam ination at a health care facility 08/01/2008 11/21/2011 Overview: 08/01/08 -- establish care Routine gynecological examination 08/01/2008 08/15/2008 Overview: [facility], [facility] [place] Urinary calculus, unspecified 12/22/2007 10/06/2017 Overview: First occurred in early 2006, again summer 2007 - total as of Dec 2007 Pain in joint, lower leg 12/11/2005 Hemorrhage of rectum and anus 08/01/2008 Abnormal maternal glucose to lerance, antepartum 08/01/2008 Overview: diet controlled documented as of this encounter (statuses as of 12/16/2022) [facility] History of Past illness Narrative* Problem Noted Date Diagnosed Date Resolved Date Low back pain 09/11/2013 10/06/2017 Buttock pain 09/11/2013 10/06/2017 Backache, unspecified 05/30/20122017 Pyoderma 05/07/2011 05/21/2016 Pruritus 05/07/2011 05/21/2016 Xerosis cutis 03/08/2011 05/21/2016 Spasm of muscle 05/21/2010 10/06/2017 Pyoderma, unspecified 12/21/20092016 Excoriation 09/08/2009 05/21/2016 Routine gynecological examination 09/26/2008 11/21/2011 Overview: [facility], [facility] [place] Poor growth, affecting management of mother, antepartum condition or complication 08/15/2008 09/26/2008 Routine general medical exam ination at a health care facility 08/01/2008 11/21/2011 Overview: 08/01/08 -- establish care Routine gynecological examination 08/01/2008 08/15/2008 Overview: [facility], [facility] [place] Urinary calculus, unspecified 12/22/2007 10/06/2017 Overview: First occurred in early 2006, again summer 2007 - total as of Dec 2007 Pain in joint, lower leg 12/11/2005 Hemorrhage of rectum and anus 08/01/2008 Abnormal maternal glucose to lerance, antepartum 08/01/2008 Overview: diet controlled documented as of this encounter (statuses as of 12/16/2022) [facility] History of Past illness Narrative* Problem Noted Date Diagnosed Date Resolved Date Low back pain 09/11/2013 10/06/2017 Buttock pain 09/11/2013 10/06/2017 Backache, unspecified 05/30/20122017 Pyoderma 05/07/2011 05/21/2016 Pruritus 05/07/2011 05/21/2016 Xerosis cutis 03/08/2011 05/21/2016 Spasm of muscle 05/21/2010 10/06/2017 Pyoderma, unspecified 12/21/20092016 Excoriation 09/08/2009 05/21/2016 Routine gynecological examination 09/26/2008 11/21/2011 Overview: [facility], [facility] [place] Poor growth, affecting management of mother, antepartum condition or complication 08/15/2008 09/26/2008 Routine general medical exam ination at a health care facility 08/01/2008 11/21/2011 Overview: 08/01/08 -- establish care Routine gynecological examination 08/01/2008 08/15/2008 Overview: [facility], [facility] [place] Urinary calculus, unspecified 12/22/2007 10/06/2017 Overview: First occurred in early 2006, again summer 2007 - total as of Dec 2007 Pain in joint, lower leg 12/11/2005 Hemorrhage of rectum and anus 08/01/2008 Abnormal maternal glucose to lerance, antepartum 08/01/2008 Overview: diet controlled documented as of this encounter (statuses as of 01/02/2023) [facility] History of Past illness Narrative* Problem Noted Date Diagnosed Date Resolved Date Low back pain 09/11/2013 10/06/2017 Buttock pain 09/11/2013 10/06/2017 Backache, unspecified 05/30/20122017 Pyoderma 05/07/2011 05/21/2016 Pruritus 05/07/2011 05/21/2016 Xerosis cutis 03/08/2011 05/21/2016 Spasm of muscle 05/21/2010 10/06/2017 Pyoderma, unspecified 12/21/20092016 Excoriation 09/08/2009 05/21/2016 Routine gynecological examination 09/26/2008 11/21/2011 Overview: [facility], [facility] [place] Poor growth, affecting management of mother, antepartum condition or complication 08/15/2008 09/26/2008 Routine general medical exam ination at a health care facility 08/01/2008 11/21/2011 Overview: 08/01/08 -- establish care Routine gynecological examination 08/01/2008 08/15/2008 Overview: [facility], [facility] [place] Urinary calculus, unspecified 12/22/2007 10/06/2017 Overview: First occurred in early 2006, again summer total as of Dec 2007 Pain in joint, lower leg 12/11/2005 Hemorrhage of rectum and anus 08/01/2008 Abnormal maternal glucose to lerance, antepartum 08/01/2008 Overview: diet controlled documented as of this encounter (statuses as of 01/06/2023) [facility] History of Past illness Narrative* Problem Noted Date Diagnosed Date Resolved Date Low back pain 09/11/2013 10/06/2017 Buttock pain 09/11/2013 10/06/2017 Backache, unspecified 05/30/20122017 Pyoderma 05/07/2011 05/21/2016 Pruritus 05/07/2011 05/21/2016 Xerosis cutis 03/08/2011 05/21/2016 Spasm of muscle 05/21/2010 10/06/2017 Pyoderma, unspecified 12/21/20092016 Excoriation 09/08/2009 05/21/2016 Routine gynecological examination 09/26/2008 11/21/2011 Overview: [facility], [facility] [place] Poor growth, affecting management of mother, antepartum condition or complication 08/15/2008 09/26/2008 Routine general medical exam ination at a health care facility 08/01/2008 11/21/2011 Overview: 08/01/08 -- establish care Routine gynecological examination 08/01/2008 08/15/2008 Overview: [facility], [facility] [place] Urinary calculus, unspecified 12/22/2007 10/06/2017 Overview: First occurred in early 2006, again summer 2007 - total as of Dec 2007 Pain in joint, lower leg 12/11/2005 Hemorrhage of rectum and anus 08/01/2008 Abnormal maternal glucose to lerance, antepartum 08/01/2008 Overview: diet controlled documented as of this encounter (statuses as of 01/08/2023) [facility] History of Past illness Narrative* Problem Noted Date Diagnosed Date Resolved Date Low back pain 09/11/2013 10/06/2017 Buttock pain 09/11/2013 10/06/2017 Backache, unspecified 05/30/20122017 Pyoderma 05/07/2011 05/21/2016 Pruritus 05/07/2011 05/21/2016 Xerosis cutis 03/08/2011 05/21/2016 Spasm of muscle 05/21/2010 10/06/2017 Pyoderma, unspecified 12/21/20092016 Excoriation 09/08/2009 05/21/2016 Routine gynecological examination 09/26/2008 11/21/2011 Overview: [facility], [facility] [place] Poor growth, affecting management of mother, antepartum condition or complication 08/15/2008 09/26/2008 Routine general medical exam ination at a health care facility 08/01/2008 11/21/2011 Overview: 08/01/08 -- establish care Routine gynecological examination 08/01/2008 08/15/2008 Overview: [facility], [facility] [place] Urinary calculus, unspecified 12/22/2007 10/06/2017 Overview: First occurred in early 2006, again summer 2007 - total as of Dec 2007 Pain in joint, lower leg 12/11/2005 Hemorrhage of rectum and anus 08/01/2008 Abnormal maternal glucose to lerance, antepartum 08/01/2008 Overview: diet controlled documented as of this encounter (statuses as of 01/08/2023) [facility] History of Past illness Narrative* Problem Noted Date Diagnosed Date Resolved Date Low back pain 09/11/2013 10/06/2017 Buttock pain 09/11/2013 10/06/2017 Backache, unspecified 05/30/20122017 Pyoderma 05/07/2011 05/21/2016 Pruritus 05/07/2011 05/21/2016 Xerosis cutis 03/08/2011 05/21/2016 Spasm of muscle 05/21/2010 10/06/2017 Pyoderma, unspecified 12/21/20092016 Excoriation 09/08/2009 05/21/2016 Routine gynecological examination 09/26/2008 11/21/2011 Overview: [facility], [facility] [place] Poor growth, affecting management of mother, antepartum condition or complication 08/15/2008 09/26/2008 Routine general medical exam ination at a health care facility 08/01/2008 11/21/2011 Overview: 08/01/08 -- establish care Routine gynecological examination 08/01/2008 08/15/2008 Overview: [facility], [facility] [place] Urinary calculus, unspecified 12/22/2007 10/06/2017 Overview: First occurred in early 2006, again summer 2007 - total as of Dec 2007 Pain in joint, lower leg 12/11/2005 Hemorrhage of rectum and anus 08/01/2008 Abnormal maternal glucose to lerance, antepartum 08/01/2008 Overview: diet controlled documented as of this encounter (statuses as of 01/14/2023) [facility] History of Past illness Narrative* Problem Noted Date Diagnosed Date Resolved Date Low back pain 09/11/2013 10/06/2017 Buttock pain 09/11/2013 10/06/2017 Backache, unspecified 05/30/20122017 Pyoderma 05/07/2011 05/21/2016 Pruritus 05/07/2011 05/21/2016 Xerosis cutis 03/08/2011 05/21/2016 Spasm of muscle 05/21/2010 10/06/2017 Pyoderma, unspecified 12/21/20092016 Excoriation 09/08/2009 05/21/2016 Routine gynecological examination 09/26/2008 11/21/2011 Overview: [facility], [facility] [place] Poor growth, affecting management of mother, antepartum condition or complication 08/15/2008 09/26/2008 Routine general medical exam ination at a health care facility 08/01/2008 11/21/2011 Overview: 08/01/08 -- establish care Routine gynecological examination 08/01/2008 08/15/2008 Overview: [facility], [facility] [place] Urinary calculus, unspecified 12/22/2007 10/06/2017 Overview: First occurred in early 2006, again summer 2007 - total as of Dec 2007 Pain in joint, lower leg 12/11/2005 Hemorrhage of rectum and anus 08/01/2008 Abnormal maternal glucose to lerance, antepartum 08/01/2008 Overview: diet controlled documented as of this encounter (statuses as of 01/20/2023) [facility] History of Past illness Narrative* Problem Noted Date Diagnosed Date Resolved Date Low back pain 09/11/2013 10/06/2017 Buttock pain 09/11/2013 10/06/2017 Backache, unspecified 05/30/20122017 Pyoderma 05/07/2011 05/21/2016 Pruritus 05/07/2011 05/21/2016 Xerosis cutis 03/08/2011 05/21/2016 Spasm of muscle 05/21/2010 10/06/2017 Pyoderma, unspecified 12/21/20092016 Excoriation 09/08/2009 05/21/2016 Routine gynecological examination 09/26/2008 11/21/2011 Overview: [facility], [facility] [place] Poor growth, affecting management of mother, antepartum condition or complication 08/15/2008 09/26/2008 Routine general medical exam ination at a health care facility 08/01/2008 11/21/2011 Overview: 08/01/08 -- establish care Routine gynecological examination 08/01/2008 08/15/2008 Overview: [facility], [facility] [place] Urinary calculus, unspecified 12/22/2007 10/06/2017 Overview: First occurred in early 2006, again summer 2007 - total as of Dec 2007 Pain in joint, lower leg 12/11/2005 Hemorrhage of rectum and anus 08/01/2008 Abnormal maternal glucose to lerance, antepartum 08/01/2008 Overview: diet controlled documented as of this encounter (statuses as of 01/21/2023) [facility] History of Past illness Narrative* Problem Noted Date Diagnosed Date Resolved Date Low back pain 09/11/2013 10/06/2017 Buttock pain 09/11/2013 10/06/2017 Backache, unspecified 05/30/20122017 Pyoderma 05/07/2011 05/21/2016 Pruritus 05/07/2011 05/21/2016 Xerosis cutis 03/08/2011 05/21/2016 Spasm of muscle 05/21/2010 10/06/2017 Pyoderma, unspecified 12/21/20092016 Excoriation 09/08/2009 05/21/2016 Routine gynecological examination 09/26/2008 11/21/2011 Overview: [facility], [facility] [place] Poor growth, affecting management of mother, antepartum condition or complication 08/15/2008 09/26/2008 Routine general medical exam ination at a health care facility 08/01/2008 11/21/2011 Overview: 08/01/08 -- establish care Routine gynecological examination 08/01/2008 08/15/2008 Overview: [facility], [facility] [place] Urinary calculus, unspecified 12/22/2007 10/06/2017 Overview: First occurred in early 2006, again summer 2007 - total as of Dec 2007 Pain in joint, lower leg 12/11/2005 Hemorrhage of rectum and anus 08/01/2008 Abnormal maternal glucose to lerance, antepartum 08/01/2008 Overview: diet controlled documented as of this encounter (statuses as of 01/26/2023) [facility] History of Past illness Narrative* Problem Noted Date Diagnosed Date Resolved Date Low back pain 09/11/2013 10/06/2017 Buttock pain 09/11/2013 10/06/2017 Backache, unspecified 05/30/20122017 Pyoderma 05/07/2011 05/21/2016 Pruritus 05/07/2011 05/21/2016 Xerosis cutis 03/08/2011 05/21/2016 Spasm of muscle 05/21/2010 10/06/2017 Pyoderma, unspecified 12/21/20092016 Excoriation 09/08/2009 05/21/2016 Routine gynecological examination 09/26/2008 11/21/2011 Overview: [facility], [facility] [place] Poor growth, affecting management of mother, antepartum condition or complication 08/15/2008 09/26/2008 Routine general medical exam ination at a health care facility 08/01/2008 11/21/2011 Overview: 08/01/08 -- establish care Routine gynecological examination 08/01/2008 08/15/2008 Overview: [facility], [facility] [place] Urinary calculus, unspecified 12/22/2007 10/06/2017 Overview: First occurred in early 2006, again summer 2007 - total as of Dec 2007 Pain in joint, lower leg 12/11/2005 Hemorrhage of rectum and anus 08/01/2008 Abnormal maternal glucose to lerance, antepartum 08/01/2008 Overview: diet controlled documented as of this encounter (statuses as of 01/30/2023) [facility] History of Past illness Narrative* Problem Noted Date Diagnosed Date Resolved Date Low back pain 09/11/2013 10/06/2017 Buttock pain 09/11/2013 10/06/2017 Backache, unspecified 05/30/20122017 Pyoderma 05/07/2011 05/21/2016 Pruritus 05/07/2011 05/21/2016 Xerosis cutis 03/08/2011 05/21/2016 Spasm of muscle 05/21/2010 10/06/2017 Pyoderma, unspecified 12/21/20092016 Excoriation 09/08/2009 05/21/2016 Routine gynecological examination 09/26/2008 11/21/2011 Overview: [facility], [facility] [place] Poor growth, affecting management of mother, antepartum condition or complication 08/15/2008 09/26/2008 Routine general medical exam ination at a health care facility 08/01/2008 11/21/2011 Overview: 08/01/08 -- establish care Routine gynecological examination 08/01/2008 08/15/2008 Overview: [facility], [facility] [place] Urinary calculus, unspecified 12/22/2007 10/06/2017 Overview: First occurred in early 2006, again summer 2007 - total as of Dec 2007 Pain in joint, lower leg 12/11/2005 Hemorrhage of rectum and anus 08/01/2008 Abnormal maternal glucose to lerance, antepartum 08/01/2008 Overview: diet controlled documented as of this encounter (statuses as of 01/31/2023) [facility] History of Past illness Narrative* Problem Noted Date Diagnosed Date Resolved Date Low back pain 09/11/2013 10/06/2017 Buttock pain 09/11/2013 10/06/2017 Backache, unspecified 05/30/20122017 Pyoderma 05/07/2011 05/21/2016 Pruritus 05/07/2011 05/21/2016 Xerosis cutis 03/08/2011 05/21/2016 Spasm of muscle 05/21/2010 10/06/2017 Pyoderma, unspecified 12/21/20092016 Excoriation 09/08/2009 05/21/2016 Routine gynecological examination 09/26/2008 11/21/2011 Overview: [facility] [place] Poor growth, affecting management of mother, antepartum condition or complication 08/15/2008 09/26/2008 Routine general medical exam ination at a health care facility 08/01/2008 11/21/2011 Overview: 08/01/08 -- establish care Routine gynecological examination 08/01/2008 08/15/2008 Overview: [facility], [facility] [place] Urinary calculus, unspecified 12/22/2007 10/06/2017 Overview: First occurred in early 2006, again summer 2007 - total as of Dec 2007 Pain in joint, lower leg 12/11/2005 Hemorrhage of rectum and anus 08/01/2008 Abnormal maternal glucose to lerance, antepartum 08/01/2008 Overview: diet controlled documented as of this encounter (statuses as of 02/02/2023) [facility] History of Past illness Narrative* Problem Noted Date Diagnosed Date Resolved Date Low back pain 09/11/2013 10/06/2017 Buttock pain 09/11/2013 10/06/2017 Backache, unspecified 05/30/20122017 Pyoderma 05/07/2011 05/21/2016 Pruritus 05/07/2011 05/21/2016 Xerosis cutis 03/08/2011 05/21/2016 Spasm of muscle 05/21/2010 10/06/2017 Pyoderma, unspecified 12/21/20092016 Excoriation 09/08/2009 05/21/2016 Routine gynecological examination 09/26/2008 11/21/2011 Overview: [facility], [facility] [place] Poor growth, affecting management of mother, antepartum condition or complication 08/15/2008 09/26/2008 Routine general medical exam ination at a health care facility 08/01/2008 11/21/2011 Overview: 08/01/08 -- establish care Routine gynecological examination 08/01/2008 08/15/2008 Overview: [facility], [facility] [place] Urinary calculus, unspecified 12/22/2007 10/06/2017 Overview: First occurred in early 2006, again summer total as of Dec 2007 Pain in joint, lower leg 12/11/2005 Hemorrhage of rectum and anus 08/01/2008 Abnormal maternal glucose to lerance, antepartum 08/01/2008 Overview: diet controlled documented as of this encounter (statuses as of 02/03/2023) [facility] History of Past illness Narrative* Problem Noted Date Diagnosed Date Resolved Date Low back pain 09/11/2013 10/06/2017 Buttock pain 09/11/2013 10/06/2017 Backache, unspecified 05/30/20122017 Pyoderma 05/07/2011 05/21/2016 Pruritus 05/07/2011 05/21/2016 Xerosis cutis 03/08/2011 05/21/2016 Spasm of muscle 05/21/2010 10/06/2017 Pyoderma, unspecified 12/21/20092016 Excoriation 09/08/2009 05/21/2016 Routine gynecological examination 09/26/2008 11/21/2011 Overview: [facility], [facility] [place] Poor growth, affecting management of mother, antepartum condition or complication 08/15/2008 09/26/2008 Routine general medical exam ination at a health care facility 08/01/2008 11/21/2011 Overview: 08/01/08 -- establish care Routine gynecological examination 08/01/2008 08/15/2008 Overview: [facility], [facility] [place] Urinary calculus, unspecified 12/22/2007 10/06/2017 Overview: First occurred in early 2006, again summer 2007 - total as of Dec 2007 Pain in joint, lower leg 12/11/2005 Hemorrhage of rectum and anus 08/01/2008 Abnormal maternal glucose to lerance, antepartum 08/01/2008 Overview: diet controlled documented as of this encounter (statuses as of 02/12/2023) [facility] of Past illness Narrative* Problem Noted Date Diagnosed Date Resolved Date Low back pain 09/11/2013 10/06/2017 Buttock pain 09/11/2013 10/06/2017 Backache, unspecified 05/30/20122017 Pyoderma 05/07/2011 05/21/2016 Pruritus 05/07/2011 05/21/2016 Xerosis cutis 03/08/2011 05/21/2016 Spasm of muscle 05/21/2010 10/06/2017 Pyoderma, unspecified 12/21/20092016 Excoriation 09/08/2009 05/21/2016 Routine gynecological examination 09/26/2008 11/21/2011 Overview: [facility], [facility] [place] Poor growth, affecting management of mother, antepartum condition or complication 08/15/2008 09/26/2008 Routine general medical exam ination at a health care facility 08/01/2008 11/21/2011 Overview: 08/01/08 -- establish care Routine gynecological examination 08/01/2008 08/15/2008 Overview: [facility], [facility] [place] Urinary calculus, unspecified 12/22/2007 10/06/2017 Overview: First occurred in early 2006, again summer 2007 - total as of Dec 2007 Pain in joint, lower leg 12/11/2005 Hemorrhage of rectum and anus 08/01/2008 Abnormal maternal glucose to lerance, antepartum 08/01/2008 Overview: diet controlled documented as of this encounter (statuses as of 02/25/2023) [facility] of Past illness Narrative* Problem Noted Date Diagnosed Date Resolved Date Low back pain 09/11/2013 10/06/2017 Buttock pain 09/11/2013 10/06/2017 Backache, unspecified 05/30/20122017 Pyoderma 05/07/2011 05/21/2016 Pruritus 05/07/2011 05/21/2016 Xerosis cutis 03/08/2011 05/21/2016 Spasm of muscle 05/21/2010 10/06/2017 Pyoderma, unspecified 12/21/20092016 Excoriation 09/08/2009 05/21/2016 Routine gynecological examination 09/26/2008 11/21/2011 Overview: [facility] [place] Poor growth, affecting management of mother, antepartum condition or complication 08/15/2008 09/26/2008 Routine general medical exam ination at a health care facility 08/01/2008 11/21/2011 Overview: 08/01/08 -- establish care Routine gynecological examination 08/01/2008 08/15/2008 Overview: [facility], [facility] [place] Urinary calculus, unspecified 12/22/2007 10/06/2017 Overview: First occurred in early 2006, again summer 2007 - total as of Dec 2007 Pain in joint, lower leg 12/11/2005 Hemorrhage of rectum and anus 08/01/2008 Abnormal maternal glucose to lerance, antepartum 08/01/2008 Overview: diet controlled documented as of this encounter (statuses as of 02/26/2023) [facility] History of Past illness Narrative* Problem Noted Date Diagnosed Date Resolved Date Low back pain 09/11/2013 10/06/2017 Buttock pain 09/11/2013 10/06/2017 Backache, unspecified 05/30/20122017 Pyoderma 05/07/2011 05/21/2016 Pruritus 05/07/2011 05/21/2016 Xerosis cutis 03/08/2011 05/21/2016 Spasm of muscle 05/21/2010 10/06/2017 Pyoderma, unspecified 12/21/20092016 Excoriation 09/08/2009 05/21/2016 Routine gynecological examination 09/26/2008 11/21/2011 Overview: [facility] [place] Poor growth, affecting management of mother, antepartum condition or complication 08/15/2008 09/26/2008 Routine general medical exam ination at a health care facility 08/01/2008 11/21/2011 Overview: 08/01/08 -- establish care Routine gynecological examination 08/01/2008 08/15/2008 Overview: [facility], [facility] [place] Urinary calculus, unspecified 12/22/2007 10/06/2017 Overview: First occurred in early 2006, again summer 2007 - total as of Dec 2007 Pain in joint, lower leg 12/11/2005 Hemorrhage of rectum and anus 08/01/2008 Abnormal maternal glucose to lerance, antepartum 08/01/2008 Overview: diet controlled documented as of this encounter (statuses as of 03/05/2023) [facility] of Past illness Narrative* Problem Noted Date Diagnosed Date Resolved Date Low back pain 09/11/2013 10/06/2017 Buttock pain 09/11/2013 10/06/2017 Backache, unspecified 05/30/20122017 Pyoderma 05/07/2011 05/21/2016 Pruritus 05/07/2011 05/21/2016 Xerosis cutis 03/08/2011 05/21/2016 Spasm of muscle 05/21/2010 10/06/2017 Pyoderma, unspecified 12/21/20092016 Excoriation 09/08/2009 05/21/2016 Routine gynecological examination 09/26/2008 11/21/2011 Overview: [facility], [facility] [place] Poor growth, affecting management of mother, antepartum condition or complication 08/15/2008 09/26/2008 Routine general medical exam ination at a health care facility 08/01/2008 11/21/2011 Overview: 08/01/08 -- establish care Routine gynecological examination 08/01/2008 08/15/2008 Overview: [facility], [facility] [place] Urinary calculus, unspecified 12/22/2007 10/06/2017 Overview: First occurred in early 2006, again summer 2007 - total as of Dec 2007 Pain in joint, lower leg 12/11/2005 Hemorrhage of rectum and anus 08/01/2008 Abnormal maternal glucose to lerance, antepartum 08/01/2008 Overview: diet controlled documented as of this encounter (statuses as of 03/08/2023) [facility] Plan note No data available for this section [facility] Evaluation note* Diagnosis Pelvic pain in female- Primary Unspecified symptom associated with female genital organs Endometriosis Endometriosis, site unspecified Spastic pelvic floor syndrome Other symptoms involving digestive system documented in this encounter [facility] note* Diagnosis Rash and nonspecific skin eruption- Primary Rash and other nonspecific skin eruption Hair loss Alopecia, unspecified Folliculitis Other specified disease of hair and hair follicles Erythema intertrigo Other specified erythematous condition [facility] Diagnosis Treatment not available- Primary Procedure not carried out for other reasons documented in this encounter [facility]* Diagnosis Endometriosis- Primary Endometriosis, site unspecified Pelvic pain in female Unspecified symptom associated with female genital organs Preop examination Preoperative examination, unspecified documented in this encounter [facility] note* Diagnosis Seasonal allergies- Primary Allergic rhinitis, cause unspecified Folliculitis Other specified disease of hair and hair follicles Dermatitis Contact dermatitis and other eczema, due to unspecified cause documented in this encounter [facility] note* Diagnosis Chronic rhinitis- Primary Seasonal allergies Allergic rhinitis, cause unspecified Allergic conjunctivitis, bilateral Other chronic allergic conjunctivitis Anaphylaxis due to hymenoptera venom, accidental or unintentional, initial encounter Allergic urticaria Allergy to cephalosporin Other drug allergy Mild persistent asthma, unspecified whether complicated Latex allergy status Allergy to latex Nasal turbinate hypertrophy Hypertrophy of nasal turbinates documented in this encounter [facility] note* Diagnosis Mild persistent asthma, unspecified whether complicated documented in this encounter [facility] note* Diagnosis Bloody diarrhea- Primary Diarrhea Endometriosis Endometriosis, site unspecified Pelvic pain in female Unspecified symptom associated with female genital organs documented in this encounter [facility] note* Diagnosis Endometriosis- Primary Endometriosis, site unspecified Endometriosis Endometriosis, site unspecified documented in this encounter [facility] note* Diagnosis Acne vulgaris- Primary Other acne Seborrheic keratosis Other seborrheic keratosis Endometriosis Endometriosis, site unspecified [facility] Diagnosis Urinary urgency- Primary Urgency of urination Urinary frequency Endometriosis Endometriosis, site unspecified documented [facility] this [facility] Diagnosis Pre-op evaluation- Primary Preoperative examination, unspecified [facility] Diagnosis Endometriosis- Primary Endometriosis, site unspecified Pelvic pain in female Unspecified symptom associated with female genital organs documented [facility] this [facility] Diagnosis Post-operative state- Primary Other postprocedural status Post-op pain Other acute postoperative pain documented [facility] this [facility]* Diagnosis Elevated testosterone level- Primary documented in this [facility]* Diagnosis Post-operative state- Primary Other postprocedural status documented in this [facility]* Diagnosis Kidney stone- Primary Calculus of kidney documented in this [facility]* 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 Other intra-abdominal and pelvic swelling, mass and lump documented in this encounter [facility] 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) Other intra-abdominal and pelvic swelling, mass and lump documented in this encounter [facility]* Diagnosis Screening for genitourinary condition Screening for other and unspecified genitourinary condition documented [facility] this [facility]* Diagnosis Abnormality present on gross pathology- Primary History of endometriosis Personal history of other genital system and obstetric disorders History of PCOS Personal history of other genital system and obstetric disorders S/P laparoscopic hysterectomy Acquired absence of both cervix and uterus S/P ovarian cystectomy Other postprocedural status History of salpingectomy Other postprocedural status History of left salpingo-oophorectomy Vaginal bleeding Other specified noninflammatory disorder of vagina Pelvic pain in female Unspecified symptom associated with female genital organs documented [facility] this [facility]* Diagnosis S/P laparoscopic hysterectomy- Primary Acquired absence of both cervix and uterus History of endometriosis Personal history of other genital system and obstetric disorders Pelvic pain in female Unspecified symptom associated with female genital organs Abnormality present on gross pathology S/P ovarian cystectomy Other postprocedural status documented in this [facility] Diagnosis Adult acne- Primary Other acne documented [facility] this [facility]* Diagnosis Hidradenitis suppurativa- Primary Hidradenitis Acne excoriee Other acne documented in this encounter [facility]* Diagnosis Urinary frequency- Primary Muscle spasm Spasm of muscle Urinary urgency Urgency of urination documented in this encounter [facility]* Diagnosis Screening for genitourinary condition- Primary Screening for other and unspecified genitourinary condition Kidney stone Calculus of kidney documented in this encounter [facility]* Diagnosis Chronic left-sided low back pain with left-sided sciatica- Primary Radiculopathy, cervical region Brachial neuritis or radiculitis nos Radiculopathy, lumbar region Thoracic or lumbosacral neuritis or radiculitis, unspecified Neck pain Cervicalgia Spinal stenosis of cervical region Spinal stenosis in cervical region Spinal stenosis of lumbar region, unspecified whether neurogenic claudication present documented in this encounter [facility]* Diagnosis Obesity, Class I, BMI 30-34.9 Obesity, unspecified documented in this encounter [facility]* Diagnosis Urinary frequency- Primary Pain of upper abdomen Abdominal pain, other specified site documented in this encounter [facility]* Diagnosis Strain of gastrocnemius muscle of left lower extremity, initial encounter- Primary documented in this encounter [facility]* Diagnosis Strain of gastrocnemius muscle of left lower extremity, initial encounter- Primary documented in this encounter [facility]* Diagnosis Strain of gastrocnemius muscle of left lower extremity, initial encounter- Primary documented in this encounter [facility]* Diagnosis Strain of gastrocnemius muscle of left lower extremity, initial encounter- Primary documented in this [facility]* Diagnosis Kidney stone Calculus of kidney documented in this [facility]* Diagnosis S/P laparoscopic hysterectomy Acquired absence of both cervix and uterus Pelvic pain in female Unspecified symptom associated with female genital organs Abnormality present on gross pathology S/P ovarian cystectomy Other postprocedural status documented in this encounter [facility]* Diagnosis Radiculopathy, cervical region- Primary Brachial neuritis or radiculitis nos Chronic bilateral low back pain with bilateral sciatica documented in this [facility]* Diagnosis Spinal stenosis of cervical region Spinal stenosis in cervical region documented in this encounter [facility]* Diagnosis Spinal stenosis of lumbar region, unspecified whether neurogenic claudication present [facility] Diagnosis Endometriosis- Primary Endometriosis, site unspecified Pelvic pain in female Unspecified symptom associated with female genital organs History of kidney stones documented in this encounter [facility] Work Phone: Evaluation note* Diagnosis Difficulty voiding- Primary Other symptoms involving urinary system Pelvic pain in female Unspecified symptom associated with female genital organs Bladder spasm Hypertonicity of bladder documented in this encounter [facility] Work Phone: Evaluation note* Diagnosis Urinary frequency- Primary Gross hematuria Left flank pain Abdominal pain, unspecified site Pelvic pain Bladder spasm Hypertonicity of bladder documented in this encounter [facility] Work Phone: Evaluation note* Diagnosis Loose stools- Primary Abnormal feces Pelvic pain in female Unspecified symptom associated with female genital organs Gastroesophageal reflux disease, unspecified whether esophagitis present Dysphagia, unspecified type Epigastric pain Abdominal pain, epigastric documented in this encounter [facility] Work Phone: History of Present illness NarrativeThe patient is being seen for a 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 Symptoms: joint stiffness, joint swelling, arthralgias, myalgias, weakness and malaise. (Patient not seen in over a year and a half. At that time I started her on azathioprine but patient never started the medication. She states that she has not felt well for several months now. She began to feel lightheaded and has fallen several times. PCP did a CRP and it was 17. He put her on dexamethasone for 2 months that she reports that she feels wonderful went on it however when she is off the medication she is very fatigued has generalized weakness feels faint and has episodes of sweating. She is not eating well and has episodes of nausea and diarrhea. She is scheduled to see endocrinology tomorrow. PCP is also working her up for possible MS or myasthenia gravis because she does have jaw fatigue with chewing. An MRI is pending. With regards to her connective tissue disease she does have episodes of joint pain and swelling and has developed some rashes that look like hives) Associated symp toms: generalized rash. The patient is not currently being treated for this problem. (This is a 32 year old patient who presents on referral by Dr. Rudy Branch for evaluation and opinion on cause of symptoms. Patient reports long standing /Crohn's but states she never had definite diagnosis. She has had 3-4 years of rheum issues--fever up to 101 daily, higher in the afternoon. . Given humira but never started (doc left). saw last rheum---at that initial visit: leg gave out while playing in a softball game. Tried on sulfasalazine but didn't work. Given humira but never started it because her rheum left. saw derm for a variety of rashes. lesions on face, torso and arms. UV light helps somewhat. saw GI--has been told she has crohn's vs UC vs anal fissure Has settled down but used to havesevere diarrhea. has microscopic hematuria which is unexplained. Sees nephrology. Re: joints--Hands, wrists, knee, back L hip swells Steroids only work temporarily MRI of hip was ok. Re: kidney yesterday had an US for L tumor like structure. Seeing nephrology. had tuboovarian cyst on L in the past. hospitalized in December for tachycardia/syncope/bradycardia on cardizem but caused HTN. metoprolol-. gained 20 lbs. Pt was treated for Lyme years ago. 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 Turner - was going to schedule a hysterectomy * she continues to have pelvic pain * she desires surgery for endometriosis [id number] Work Phone: History of Present illness Narrative* KAYA FICKLE is a 37-year-old female with a recent diagnosis of low-grade serous epithelial proliferation. She also has a family history of prostate and pancreatic cancer on her father's side and breast cancer and Ashkenazi Protestant ancestry on her mother's side. She was referred to the Cancer Genetics Clinic at [facility] by her physician, Dr. Chloe Styles Ms. ARCE is interested in genetic testing to clarify her personal risks for cancer, as well as the risks to her family members. * CANCER MEDICAL HISTORY: * PERSONAL HISTORY OF CANCER? No. * PERSONAL HISTORY OF NEOPLASIA? Yes, diagnosed with low grade serous epithelial proliferation on 01/2022 laparoscopy. Will continue to be followed by gynecologic oncology. Also has history of LSO in 07/2014 for pain, adnexal mass, elevated CA125 (assumed to be secondary to endometriosis). Per Dr. Nirav diaz's 10/06/2022 note, final pathology in 2014 showed sclerotic ovary with benign serous inclusions with psammoma bodies, negative for neoplasm. L fallopian tube intraluminal psammoma bodies. * OTHER HEALTH ISSUES: endometriosis, PCOS, lupus/mixed connective tissue disease, dysautonomia, POTS. * CANCER SCREENING HISTORY: * Mammograms: No. * Clinical breast exams: No. * BSE: Yes, every so often. * Ovarian cancer screening: See above. * PAP smear: Yes, in the past. Remote history of abnormal Pap smears, s/p colposcopy, patient reportsit was a difficult exam. * Colonoscopy: Yes, x5. DIagnosed with Crohn's at 1 years of age. Last colonoscopy was in 2018. Colonpolyp x1-mucosal prolapse. * EGD: Yes x1 in 2018. Negative biopsies. * Dermatology: Yes, as needed. No history of skin cancer. * Other cancer screening: No. * REPRODUCTIVE HISTORY: * # Children: 1. * # Pregnancies: 2. * Age first : 18. * Breast feeding?: Yes. * Menarche (age): 8 or 9. * Menopause: s/p hysterectomy. * OCP: Yes, for * 15 years. * HRT: N/A. * FAMILY HISTORY: * A four-generation pedigree was obtained and was significant for the following: * -Patient, with history of low-grade serous epithelial proliferation on recent laparoscopy; * -Father, skin cancer at 63, non-small cell lung cancer at 69, no metastatic disease, alive at 70; * -Paternal uncle, prostate cancer 81, alive 85; * -Paternal aunt, pancreatic cancer at 72, alive 84; * -Paternal grandmother, cancer NOS at 61, at 66; * -Mother, no history of cancer, alive at 76; * -Maternal grand mother, breast cancer 85, at 99; * -Maternal grandfather, prostate cancer at 79, at 83; * -Maternal great aunt (through [facility] [place] [place]), cancer NOS, . * Ms. ARCE is of Bhutanese/Hebrew/Nepalese (paternal) and Luxembourgish/Thai/Polish (maternal) descent. She reports Protestant ancestry on her maternal grandmother's side of the family. There is no known consanguinity. [id number] Work Phone: Progress note No data available for this section [facility] Reason for referral (narrative)* Outpatient Procedure (Routine) - Pending Review Specialty Diagnoses / Procedures Referred By Contac t Referred To Contact [facility] Diagnoses Bloody diarrhea Procedures COLONOSCOPY DIAGNOSTIC COLONOSCOPY FLX DX W/COLLJ SPEC WHEN PFRMD [address] [place] [address] [facility] [address] [place] [address] Referral ID Status Reason Start Date Expiration Date Visits Requested Visits Authorized [id number] Pending Review Auto-Generat ed Referral 10/10/2021 10/10/2022 1 1 * Consult, Test, Treat (Routine) - Authorized Specialty Diagnoses / Procedures Referred By Contac t Referred To Contact Gastroenterology Diagnoses Bloody diarrhea Procedures CONSULT TO GASTROENTEROLOGY OFFICE/OUTPATIENT NEW HIGH MDM 60-74 MINUTES [address] [place] [address] Referral ID Status Reason Start Date Expiration Date Visits Requested Visits Authorized [id number] Authorized PCP Requested Referral 10/10/2021 10/10/[address] [facility] for referral (narrative)* Diagnostic Procedure Only (Routine) - Pending Review Specialty Diagnoses / Procedures Referred By Contac t Referred To Contact [facility] Diagnoses Kidney stone Procedures US KIDNEY/BLADDER US RETROPERITONEAL REAL TIME W/IMAGE COMPLETE Danna Davis APRN.DIRECTOR OF MARKETING ANALYTICS [address] [place] [address] [facility] Referral ID Status Reason Start Date Expiration Date Visits Requested Visits Authorized [id number] Pending Review Auto-Generat ed Referral 2 04/12/[address] [facility] for referral (narrative)* Diagnostic Procedure Only (Routine) - Pending Review Specialty Diagnoses / Procedures Referred By Contac t Referred To Contact [facility] Diagnoses S/P laparoscopic hysterectomy Pelvic pain in female Abnormality present on gross pathology S/P ovarian cystectomy Procedures US FEMALE PELVIS TRANSVAG US TRANSVAGINAL Phyllis Guzman APRN.DIRECTOR OF MARKETING ANALYTICS [address] [place] [id number] [facility] Referral ID Status Reason Start Date Expiration Date Visits Requested Visits Authorized [id number] Pending Review Auto-Generat ed Referral 10/19/2022 05/21/[address] [facility] for referral (narrative)* Diagnostic Procedure Only (Routine) - Pending Review Specialty Diagnoses / Procedures Referred By Contac t Referred To Contact [facility] Diagnoses Strain of gastrocnemius muscle of left lower extremity, initial encounter Procedures US DVT LOWER LEFT DUP-SCAN XTR VEINS UNILATERAL/LIMITED STUDY Ky Ford MD [address] [place] [id number] [id number] Referral ID Status Reason Start Date Expiration Date Visits Requested Visits Authorized [id number] Pending Review Auto-Generat ed Referral 3 02/04/2024 1 1 * Physical Therapy (Routine) - Pending Review Specialty Diagnoses / Procedures Referred By Contac t Referred To Contact [facility] Diagnoses Strain of gastrocnemius muscle of left lower extremity, initial encounter Procedures CONSULT TO PHYSICAL THERAPY PHYSICAL THERAPY EVALUATION HIGH COMPLEX 45 MINS Ky Ford MD [address] [place] [address] [facility] [place] [address] Referral ID Status Reason Start Date Expiration Date Visits Requested Visits Authorized [id number] Pending Review Auto-Generat ed Referral 3 01/05/[address] [facility] for referral (narrative)* Outpatient Procedure (Routine) - Closed Specialty Diagnoses / Procedures Referred By Contac t Referred To Contact [facility] [place] Diagnoses Strain of gastrocnemius muscle of left lower extremity, initial encounter Procedures US LEG VEIN DVT UNL VAS LAB DUP-SCAN XTR VEINS UNILATERAL/LIMITED STUDY Ky Ford MD [address] [place] [address] [place] [phone] Referral ID Status Reason Start Date Expiration Date V isits Requested Visits Authorized [id number] Closed Auto-Generate d Referral 01/08/2023 03/28/[address] [facility] for referral (narrative)* Diagnostic Procedure Only (Routine) - Closed Specialty Diagnoses / Procedures Referred By Contac t Referred To Contact US IMAGING Diagnoses Kidney stone Procedures US KIDNEY/BLADDER US RETROPERITONEAL REAL TIME W/IMAGE COMPLETE Danna Davis, OCEANOGRAPHY PROFESSOR.DIRECTOR OF MARKETING ANALYTICS [address] [place] [place] [phone] [facility] [place] [address] Referral ID Status Reason Start Date Expiration Date V isits Requested Visits Authorized [id number] Closed Auto-Generate d Referral 03/13/2022 04/12/2023 1 1 [facility] Consultation (Routine) - Pending Review Specialty Diagnoses / Procedures Referred By Contac t Referred To Contact Physical Therapy Diagnoses Difficulty voiding Pelvic pain in female Bladder spasm Canelo Reilly APRN-MARY [id number] [place] [phone] Referral ID Status Reason Start Date Expiration Date Visits Requested Visits Authorized Pending Review Specialty Services Required 04/14/2023 04/13/2024 1 1 * Consultation (Routine) - Authorized Specialty Diagnoses / Procedures Referred By Contac t Referred To Contact Gastroenterology Diagnoses Pelvic pain in female Canelo Reilly APRN-CNP [id number] [place] [phone] Referral ID Status Reason Start Date Expiration Date Visits Requested Visits Authorized Authorized Specialty Services Required 04/14/2023 04/13/2024 1 1 * Consultation (Routine) - Authorized Specialty Diagnoses / Procedures Referred By Contac t Referred To Contact Urology Diagnoses Difficulty voiding Pelvic pain in female Bladder spasm Canelo Reilly APRN-CNP [address] [place] [phone] Referral ID Status Reason Start Date Expiration Date Visits Requested Visits Authorized Authorized Specialty Services Required 04/14/2023 04/13/2024 1 1 [facility] Work Phone: Reason for referral (narrative)* Consultation (Routine) - Pending Review Specialty Diagnoses / Procedures Referred By Contac t Referred To Contact Physical Therapy Diagnoses Pelvic pain Stefan Yi APRN-MARY [address] [facility] 1, [facility] [address] [place] [address] Nohemy Madrigal, PT [address] [facility] [address] [place] [id number] Referral ID Status Reason Start Date Expiration Date Visits Requested Visits Authorized [id number] Pending Review Specialty Services Required 04/15/2023 04/14/2024 1 1 * Imaging (Routine) - Pending Review Specialty Diagnoses / Procedures Referred By Fernando darling Referred To Contact Radiology Diagnoses Gross hematuria Left flank pain Procedures CT urography w 3D volume rendered imaging Stefan Yi APRN-MARY [address] [place] [address], [place] [phone] Referral ID Status Reason Start Date Expiration Date Visits Requested Visits Authorized [id number] Pending Review Perform Procedure 04/15/2023 04/14/2024 1 1 [facility] Work Phone: Reason for visit Narrative* Consultation (Routine) - Authorized Specialty Diagnoses / Procedures Referred By Fernando darling Referred To Contact Gastroenterology Diagnoses Pelvic pain in female Reilly Canelo Liane, OCEANOGRAPHY PROFESSOR-DIRECTOR OF MARKETING ANALYTICS [address] [place] [address] Referral ID Status Reason Start Date Expiration Date Visits Requested Visits Authorized Authorized Specialty Services Required 04/14/2023 04/13/2024 1 1 [facility] Work Phone: Summary Purpose Family History Unknown Family Member Name Dates Details Family history of diabetes romeo ellitus: Father(V18.0, Z83.3) Status:Active Family history of cardiac di sorder: Father(V17.49, Z82.49) Status:Active Family history of hypertensi on: Father(V17.49, Z82.49) Status:Active Family history of kidney dis ease: Father(V18.69, Z84.1) Status:Active Family history of myocardial infarction: Paternal Grandfather(V17.3, Z82.49) Status:Active Family history of gout: Fath er(V18.19, Z82.69) Status:Active Family history of Down syndr ome: Paternal Uncle(V19.5, Z82.79) Status:Active Family history of leukemia: Maternal Grandfather(V16.6, Z80.6) Status:Active History of back surgery: Mot her(V45.89, Z98.890) Status:Active Family history of arthritis: Father, Grandmother(V17.7, Z82.61) Status:Active Family history of osteoporos is: Mother, Grandmother(V17.81, Z82.62) Status:Active Family history of coronary a rtery disease: Mother(V17.3, Z82.49) Status:Active Family history of cerebrovas cular accident (CVA): Mother, Grandmother(V17.1, Z82.3) Status:Active Benign essential hypertensio n: Mother, Father Status:Active Family history of asthma: Gr andfather, Child(V17.5, Z82.5) Status:Active Family history of cerebral p alsy: Child(V17.2, Z82.0) Status:Active Family history of malignant neoplasm of breast: Maternal Grandmother, Mother, Grandmother(V16.3, Z80.3) Status:Active Unknown Family Member Name Dates Details Family history of diabetes m ellitus: Father(V18.0, Z83.3) Status:Active Family history of cardiac di sorder: Father(V17.49, Z82.49) Status:Active Family history of hypertensi on: Father(V17.49, Z82.49) Status:Active Family history of kidney dis ease: Father(V18.69, Z84.1) Status:Active Family history of myocardial infarction: Paternal Grandfather(V17.3, Z82.49) Status:Active Family history of gout: Fath er(V18.19, Z82.69) Status:Active Family history of Down syndr ome: Paternal Uncle(V19.5, Z82.79) Status:Active Family history of leukemia: Maternal Grandfather(V16.6, Z80.6) Status:Active History of back surgery: Mot her(V45.89, Z98.890) Status:Active Family history of arthritis: Father, Grandmother(V17.7, Z82.61) Status:Active Family history of osteoporos is: Mother, Grandmother(V17.81, Z82.62) Status:Active Family history of coronary a rtery disease: Mother(V17.3, Z82.49) Status:Active Family history of cerebrovas cular accident (CVA): Mother, Grandmother(V17.1, Z82.3) Status:Active Benign essential hypertensio n: Mother, Father Status:Active Family history of asthma: Gr andfather, Child(V17.5, Z82.5) Status:Active Family history of cerebral p alsy: Child(V17.2, Z82.0) Status:Active Family history of malignant neoplasm of breast: Maternal Grandmother, Mother, Grandmother(V16.3, Z80.3) Status:Active Unknown Family Member Name Dates Details Family history of diabetes m ellitus: Father(V18.0, Z83.3) Status:Active Family history of cardiac di sorder: Father(V17.49, Z82.49) Status:Active Family history of hypertensi on: Father(V17.49, Z82.49) Status:Active Family history of kidney dis ease: Father(V18.69, Z84.1) Status:Active Family history of myocardial infarction: Paternal Grandfather(V17.3, Z82.49) Status:Active Family history of gout: Fath er(V18.19, Z82.69) Status:Active Family history of Down syndr ome: Paternal Uncle(V19.5, Z82.79) Status:Active Family history of leukemia: Maternal Grandfather(V16.6, Z80.6) Status:Active History of back surgery: Mot her(V45.89, Z98.890) Status:Active Family history of arthritis: Father, Grandmother(V17.7, Z82.61) Status:Active Family history of osteoporos is: Mother, Grandmother(V17.81, Z82.62) Status:Active Family history of coronary a rtery disease: Mother(V17.3, Z82.49) Status:Active Family history of cerebrovas cular accident (CVA): Mother, Grandmother(V17.1, Z82.3) Status:Active Benign essential hypertensio n: Mother, Father Status:Active Family history of asthma: Gr andfather, Child(V17.5, Z82.5) Status:Active Family history of cerebral p alsy: Child(V17.2, Z82.0) Status:Active Family history of malignant neoplasm of breast: Maternal Grandmother, Mother, Grandmother(V16.3, Z80.3) Status:Active Unknown Family Member Name Dates Details Family history of diabetes m ellitus: Father(V18.0, Z83.3) Status:Active Family history of cardiac di sorder: Father(V17.49, Z82.49) Status:Active Family history of hypertensi on: Father(V17.49, Z82.49) Status:Active Family history of kidney dis ease: Father(V18.69, Z84.1) Status:Active Family history of myocardial infarction: Paternal Grandfather(V17.3, Z82.49) Status:Active Family history of gout: Fath er(V18.19, Z82.69) Status:Active Family history of Down syndr ome: Paternal Uncle(V19.5, Z82.79) Status:Active Family history of leukemia: Maternal Grandfather(V16.6, Z80.6) Status:Active History of back surgery: Mot her(V45.89, Z98.890) Status:Active Family history of arthritis: Father, Grandmother(V17.7, Z82.61) Status:Active Family history of osteoporos is: Mother, Grandmother(V17.81, Z82.62) Status:Active Family history of coronary a rtery disease: Mother(V17.3, Z82.49) Status:Active Family history of cerebrovas cular accident (CVA): Mother, Grandmother(V17.1, Z82.3) Status:Active Benign essential hypertensio n: Mother, Father Status:Active Family history of asthma: Gr andfather, Child(V17.5, Z82.5) Status:Active Family history of cerebral p alsy: Child(V17.2, Z82.0) Status:Active Family history of malignant neoplasm of breast: Maternal Grandmother, Mother, Grandmother(V16.3, Z80.3) Status:Active Unknown Family Member Name Dates Details Family history of diabetes m ellitus: Father(V18.0, Z83.3) Status:Active Family history of cardiac di sorder: Father(V17.49, Z82.49) Status:Active Family history of hypertensi on: Father(V17.49, Z82.49) Status:Active Family history of kidney dis ease: Father(V18.69, Z84.1) Status:Active Family history of myocardial infarction: Paternal Grandfather(V17.3, Z82.49) Status:Active Family history of gout: Fath er(V18.19, Z82.69) Status:Active Family history of Down syndr ome: Paternal Uncle(V19.5, Z82.79) Status:Active Family history of leukemia: Maternal Grandfather(V16.6, Z80.6) Status:Active History of back surgery: Mot her(V45.89, Z98.890) Status:Active Family history of arthritis: Father, Grandmother(V17.7, Z82.61) Status:Active Family history of osteoporos is: Mother, Grandmother(V17.81, Z82.62) Status:Active Family history of coronary a rtery disease: Mother(V17.3, Z82.49) Status:Active Family history of cerebrovas cular accident (CVA): Mother, Grandmother(V17.1, Z82.3) Status:Active Benign essential hypertensio n: Mother, Father Status:Active Family history of asthma: Gr andfather, Child(V17.5, Z82.5) Status:Active Family history of cerebral p alsy: Child(V17.2, Z82.0) Status:Active Family history of malignant neoplasm of breast: Maternal Grandmother, Mother, Grandmother(V16.3, Z80.3) Status:Active Unknown Family Member Name Dates Details Family history of diabetes m ellitus: Father(V18.0, Z83.3) Status:Active Family history of cardiac di sorder: Father(V17.49, Z82.49) Status:Active Family history of hypertensi on: Father(V17.49, Z82.49) Status:Active Family history of kidney dis ease: Father(V18.69, Z84.1) Status:Active Family history of myocardial infarction: Paternal Grandfather(V17.3, Z82.49) Status:Active Family history of gout: Fath er(V18.19, Z82.69) Status:Active Family history of Down syndr ome: Paternal Uncle(V19.5, Z82.79) Status:Active Family history of leukemia: Maternal Grandfather(V16.6, Z80.6) Status:Active History of back surgery: Mot her(V45.89, Z98.890) Status:Active Family history of arthritis: Father, Grandmother(V17.7, Z82.61) Status:Active Family history of osteoporos is: Mother, Grandmother(V17.81, Z82.62) Status:Active Family history of coronary a rtery disease: Mother(V17.3, Z82.49) Status:Active Family history of cerebrovas cular accident (CVA): Mother, Grandmother(V17.1, Z82.3) Status:Active Benign essential hypertensio n: Mother, Father Status:Active Family history of asthma: Gr andfather, Child(V17.5, Z82.5) Status:Active Family history of cerebral p alsy: Child(V17.2, Z82.0) Status:Active Family history of malignant neoplasm of breast: Maternal Grandmother, Mother, Grandmother(V16.3, Z80.3) Status:Active Unknown Family Member Name Dates Details Family history of diabetes m ellitus: Father(V18.0, Z83.3) Status:Active Family history of cardiac di sorder: Father(V17.49, Z82.49) Status:Active Family history of hypertensi on: Father(V17.49, Z82.49) Status:Active Family history of kidney dis ease: Father(V18.69, Z84.1) Status:Active Family history of myocardial infarction: Paternal Grandfather(V17.3, Z82.49) Status:Active Family history of gout: Fath er(V18.19, Z82.69) Status:Active Family history of Down syndr ome: Paternal Uncle(V19.5, Z82.79) Status:Active Family history of leukemia: Maternal Grandfather(V16.6, Z80.6) Status:Active History of back surgery: Mot her(V45.89, Z98.890) Status:Active Family history of arthritis: Father, Grandmother(V17.7, Z82.61) Status:Active Family history of osteoporos is: Mother, Grandmother(V17.81, Z82.62) Status:Active Family history of coronary a rtery disease: Mother(V17.3, Z82.49) Status:Active Family history of cerebrovas cular accident (CVA): Mother, Grandmother(V17.1, Z82.3) Status:Active Benign essential hypertensio n: Mother, Father Status:Active Family history of asthma: Gr andfather, Child(V17.5, Z82.5) Status:Active Family history of cerebral p alsy: Child(V17.2, Z82.0) Status:Active Family history of malignant neoplasm of breast: Maternal Grandmother, Mother, Grandmother(V16.3, Z80.3) Status:Active Unknown Family Member Name Dates Details Family history of diabetes m ellitus: Father(V18.0, Z83.3) Status:Active Family history of cardiac di sorder: Father(V17.49, Z82.49) Status:Active Family history of hypertensi on: Father(V17.49, Z82.49) Status:Active Family history of kidney dis ease: Father(V18.69, Z84.1) Status:Active Family history of myocardial infarction: Paternal Grandfather(V17.3, Z82.49) Status:Active Family history of gout: Fath er(V18.19, Z82.69) Status:Active Family history of Down syndr ome: Paternal Uncle(V19.5, Z82.79) Status:Active Family history of leukemia: Maternal Grandfather(V16.6, Z80.6) Status:Active History of back surgery: Mot her(V45.89, Z98.890) Status:Active Family history of arthritis: Father, Grandmother(V17.7, Z82.61) Status:Active Family history of osteoporos is: Mother, Grandmother(V17.81, Z82.62) Status:Active Family history of coronary a rtery disease: Mother(V17.3, Z82.49) Status:Active Family history of cerebrovas cular accident (CVA): Mother, Grandmother(V17.1, Z82.3) Status:Active Benign essential hypertensio n: Mother, Father Status:Active Family history of asthma: Gr andfather, Child(V17.5, Z82.5) Status:Active Family history of cerebral p alsy: Child(V17.2, Z82.0) Status:Active Family history of malignant neoplasm of breast: Maternal Grandmother, Mother, Grandmother(V16.3, Z80.3) Status:Active Unknown Family Member Name Dates Details Family history of diabetes m ellitus: Father(V18.0, Z83.3) Status:Active Family history of cardiac di sorder: Father(V17.49, Z82.49) Status:Active Family history of hypertensi on: Father(V17.49, Z82.49) Status:Active Family history of kidney dis ease: Father(V18.69, Z84.1) Status:Active Family history of myocardial infarction: Paternal Grandfather(V17.3, Z82.49) Status:Active Family history of gout: Fath er(V18.19, Z82.69) Status:Active Family history of Down syndr ome: Paternal Uncle(V19.5, Z82.79) Status:Active Family history of leukemia: Maternal Grandfather(V16.6, Z80.6) Status:Active History of back surgery: Mot her(V45.89, Z98.890) Status:Active Family history of arthritis: Father, Grandmother(V17.7, Z82.61) Status:Active Family history of osteoporos is: Mother, Grandmother(V17.81, Z82.62) Status:Active Family history of coronary a rtery disease: Mother(V17.3, Z82.49) Status:Active Family history of cerebrovas cular accident (CVA): Mother, Grandmother(V17.1, Z82.3) Status:Active Benign essential hypertensio n: Mother, Father Status:Active Family history of asthma: Gr andfather, Child(V17.5, Z82.5) Status:Active Family history of cerebral p alsy: Child(V17.2, Z82.0) Status:Active Family history of malignant neoplasm of breast: Maternal Grandmother, Mother, Grandmother(V16.3, Z80.3) Status:Active Unknown Family Member Name Dates Details Family history of diabetes m ellitus: Father(V18.0, Z83.3) Status:Active Family history of cardiac di sorder: Father(V17.49, Z82.49) Status:Active Family history of hypertensi on: Father(V17.49, Z82.49) Status:Active Family history of kidney dis ease: Father(V18.69, Z84.1) Status:Active Family history of myocardial infarction: Paternal Grandfather(V17.3, Z82.49) Status:Active Family history of gout: Fath er(V18.19, Z82.69) Status:Active Family history of Down syndr ome: Paternal Uncle(V19.5, Z82.79) Status:Active Family history of leukemia: Maternal Grandfather(V16.6, Z80.6) Status:Active History of back surgery: Mot her(V45.89, Z98.890) Status:Active Family history of arthritis: Father, Grandmother(V17.7, Z82.61) Status:Active Family history of osteoporos is: Mother, Grandmother(V17.81, Z82.62) Status:Active Family history of coronary a rtery disease: Mother(V17.3, Z82.49) Status:Active Family history of cerebrovas cular accident (CVA): Mother, Grandmother(V17.1, Z82.3) Status:Active Benign essential hypertensio n: Mother, Father Status:Active Family history of asthma: Gr andfather, Child(V17.5, Z82.5) Status:Active Family history of cerebral p alsy: Child(V17.2, Z82.0) Status:Active Family history of malignant neoplasm of breast: Maternal Grandmother, Mother, Grandmother(V16.3, Z80.3) Status:Active Unknown Family Member Name Dates Details Family history of diabetes m ellitus: Father(V18.0, Z83.3) Status:Active Family history of cardiac di sorder: Father(V17.49, Z82.49) Status:Active Family history of hypertensi on: Father(V17.49, Z82.49) Status:Active Family history of kidney dis ease: Father(V18.69, Z84.1) Status:Active Family history of myocardial infarction: Paternal Grandfather(V17.3, Z82.49) Status:Active Family history of gout: Fath er(V18.19, Z82.69) Status:Active Family history of Down syndr ome: Paternal Uncle(V19.5, Z82.79) Status:Active Family history of leukemia: Maternal Grandfather(V16.6, Z80.6) Status:Active History of back surgery: Mot her(V45.89, Z98.890) Status:Active Family history of arthritis: Father, Grandmother(V17.7, Z82.61) Status:Active Family history of osteoporos is: Mother, Grandmother(V17.81, Z82.62) Status:Active Family history of asthma: Gr andfather, Child(V17.5, Z82.5) Status:Active Family history of coronary a rtery disease: Mother(V17.3, Z82.49) Status:Active Family history of cerebrovas cular accident (CVA): Mother, Grandmother(V17.1, Z82.3) Status:Active Benign essential hypertensio n: Mother, Father Status:Active Family history of cerebral p alsy: Child(V17.2, Z82.0) Status:Active FHx: prostate cancer: Matern al Grandfather, Paternal Aunt(V16.42, Z80.42) Status:Active Family history of pancreatic cancer: Paternal Aunt(V16.0, Z80.0) Status:Active Family history of malignant neoplasm of breast: Maternal Grandmother(V16.3, Z80.3) Status:Active Advance Directives Documents on File Type Date Recorded Patient Fixed [employer] Expl anation Advance Directives and Living Will Power of Preparator Latest Code Status on File Code Status Date Activated Date Inactivated Comments Full Code 02/15/2019 9:11 AM Documents on File Type Date Recorded 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 DO NOT exceed 4000 mg acetaminophen in 24 hours or 3200 mg ibuprofen in 24 hours. METAMUCIL or similar fiber supplement is recommended on a daily basis. COLACE or MIRALAX is recommended on a daily basis for 2 weeks to avoid hard bowel movements if taking prescription narcotics SPECIAL INSTRUCTIONS Remove the external gauze later in the day or during your first shower/bath. On occasion a dissolvable foam (Gelfoam ) or gauze (Surgicel ) is used in the anal canal. This material will pass spontaneously often turning brown in color. Flush it down the toilet. Avoiding straining or sitting on the toilet for long periods of time or heavy lifting especially the first day after surgery. The increased pressure can aggravate swelling and bleeding. Slight bleeding and drainage as usual after this procedure. Report excessive bleeding or passage ofclots to the office. Use non-cotton gauze, sanitary pads or minipads as needed for bleeding and drainage. Keep perianal area clean. Warm showers or baths are recommended 2 to 3 times per day or as needed in the post- operative period for discomfort. You can purchase a hand-held shower sprayer to keep the tissues clean in the perineum if needed Avoid a hot shower immediately after surgery since the sedation used during procedure may precipitate light-headedness or fainting. Resume your regular diet. Report severe constipation or diarrhea to the office. Contact the office immediately if you are unable to urinate or if you have fever or chills. Do Not Use enemas or suppositories after surgery unless specifically instructed by the office. Contact the office the following business day after surgery to inform us of your progress and to make your follow-up appointment. Do not drive/operate heavy machinery while you are taking narcotic pain medication or if your pain is too severe to allow you to react appropriately. A small amount of bloody drainage can occur for several days and sometime weeks depending on the nature and severity of the surgical procedure Post-Operative Pain Reduction Strategy to Minimize Opioid Use Please take acetaminophen (Tylenol) and/or NSAIDS (Advil, Motrin) for postoperative pain control before taking opioid prescriptions for pain. You can alternate between the two or stagger them to achieve a more durable pain control regimen. -Do not exceed more than 4g of acetaminophen within 24 hours -Do not exceed more than 3200 mg NSAIDs in 24 hours -Do not take NSAIDs or acetaminophen if you have any contraindications to them. If your pain is not controlled by acetaminophen and/or NSAIDS, please take your opioid prescription([place]/vicodin/percocet have tylenol in them) as needed for pain relief and try to use the minimum amount necessary for adequate pain relief. Opioid narcotics can suppress your respiratory drive and decrease your level of alertness. It can also cause your bowel function to slow down and potentially make you constipated. -Do not drive or operate heavy machinery while on narcotic medications. Please properly dispose your excess opioid medications at the appropriate facility/location. An EXAMPLE schedule of how to take these medications is below. It is not necessary to wake yourselffrom sleep to take pain medication. 6am: 1000 mg tylenol or 1-2 percocet/norco/vicodin tablets if needed 9am: 800 mg ibuprofen 12pm: 1000 mg tylenol or 1-2 percocet/norco/vicodin tablets if needed 3pm: 800 mg ibuprofen 6pm: 1000 mg tylenol or 1-2 percocet/norco/vicodin tablets if needed 9pm: 800 mg ibuprofen 12am: 1000 mg tylenol or 1-2 percocet/norco/vicodin tablets if needed 3am: 800 mg ibuprofen 6am: 1000 mg tylenol or 1-2 percocet/norco/vicodin tablets if needed PLEASE CALL [phone] if you have any questions documented in this encounter* Instructions* Amy Murillo RN - 02/08/2019 Please bring your [facility] Surgical Information folder on the day of surgery. Please rudy the last dose taken (date and time ) on your Daily Medications List provided in your After Visit Summary. Please bring a photo ID and insurance information Do NOT take the following medications on the morning of surgery Vitamin D, Klor. TAKE the following medications the morning of your surgery Tenormin (atenolol), Prilosec, Claritin,Flonase, Xylocaine. You may take your prescription pain medications. You may take Tylenol (Acetaminophen) if needed forpain. No Motrin, Ibuprofen, or Advil 24 hours prior to surgery, or longer if instructed by your surgeon. No Aleve or Naprosyn 3 days prior to surgery, or longer if instructed by your surgeon. If you are on BLOOD THINNERS or ASPIRIN, Hold for 5 days before surgery. Additional instructions Do prep as directed. You will receive a reminder call the day before surgery with your Same Day Surgery arrival time. If you have specific questions, please call your surgeon. Please shower with an antibacterial soap( example DIAL OR SAFEGUARD) You may use the free monitor tech parking at the main entrance on [address] [place] [address], or the free parking in the [facility] parking deck documented in this encounter History of Present Illness * Ana Beckford RN - 02/15/2019 3:10 PM EST Patient ambulated, denies dizziness or nausea. Tolerating PO fluids and crackers. * Ana Beckfrod RN - 02/15/2019 2:04 PM EST Discharge information given to the patient. Patient and family verbalized understanding of information. All questions were answered before discharge. Tolerating PO fluids and crackers. Vital signs are stable. * Courtney Mosqueda RN - 02/15/2019 1:33 PM EST Family to bedside * Courtney Mosqueda RN - 02/15/2019 1:08 PM EST Pt family updated. documented in this encounter* Valencia Aranda MA - 02/08/2019 9:00 AM EST Unsuccessful lab attempt 22 gauge needle at LAC site. Site benign, patient tolerated well. Labs obtained on 2nd attempt with 22 gauge needle at LAC site. Patient tolerated well, site benign. * Amy Murillo RN - 02/08/2019 9:00 AM EST Surgery scheduling notified of pt Latex allergy. documented in this encounter Assessments Diagnosis Post-op pain- Primary Other acute postoperative pain Chief Complaint * Pelvic pain, difficulty urinating, rectal issues * Patient was referred by Dr. Maci Matta [facility] [place] 4 [facility] F/Upatient referred by Dr. Stefan Yi to discuss endometriosis adhesions, declined [facility]. [facility] LPNpatient referred by Dr. Stefan Yi to discuss endometriosis adhesions, declined [employer]. LPNAccompanied by alone. Reason for Referral Specialty Diagnoses / Procedures Referred By Contac t Referred To Contact Radiology Diagnoses History of kidney stones Procedures US renal complete Canelo Reilly, OCEANOGRAPHY PROFESSOR-DIRECTOR OF MARKETING ANALYTICS [address] [place] [address] Referral ID Status Reason Start Date Expiration Date Visits Requested Visits Authorized [id number] Authorized Perform Procedure 04/06/2023 04/05/2024 1 1 Specialty Diagnoses / Procedures Referred By Contac t Referred To Contact Pain Management Diagnoses Radiculopathy, cervical region Procedures CONSULT TO PAIN MGT Mark Thompson MD [address] [place] [address] Referral ID Status Reason Start Date Expiration Date Visits Requested Visits Authorized [id number] Ref Not Required PCP Requested Referral 3 02/25/2024 1 1 Specialty Diagnoses / Procedures Referred By Contac t Referred To Contact [facility] Diagnoses Strain of gastrocnemius muscle of left lower extremity, initial encounter Procedures PT REHAB FOLLOW UP ORDER THERAPEUTIC EXERCISES RE, EA 15 MIN. Tamika Platt, PT [facility] [place] [address] [id number] Referral ID Status Reason Start Date Expiration Date Visits Requested Visits Authorized [id number] Pending Review PCP Requested Referral Auto-Generate d Referral 04/20/2023 1 1 Specialty Diagnoses / Procedures Referred By Contac t Referred To Contact Diagnoses Obesity, Class I, BMI 30-34.9 Procedures ENDOCRINOLOGY DIETITIAN VISIT (MNT) MEDICAL NUTRITION ASSMT&IVNTJ INDIV EACH 15 ID MEDICAL NUTRITION ASSMT&IVNTJ INDIV EACH 15 ID MEDICAL NUTRITION ASSMT&IVNTJ INDIV EACH 15 ID MEDICAL NUTRITION ASSMT&IVNTJ INDIV EACH [address] [place] [address] [place] [address] Referral ID Status Reason Start Date Expiration Date Visits Requested Visits Authorized [id number] Authorized PCP Requested Referral 12/16/2022 12/16/2023 1 1 Specialty Diagnoses / Procedures Referred By Contac t Referred To Contact MR IMAGING Diagnoses Spinal stenosis of lumbar region, unspecified whether neurogenic claudication present Procedures MRI LUMBAR SPINE WO IVCON MRI SPINAL CANAL LUMBAR W/O CONTRAST MATERIAL Mark Thompson MD [address] [place] [address] Mr Imaging [id number] Referral ID Status Reason Start Date Expiration Date Visits Requested Visits Authorized [id number] Pending Review Auto-Generat ed Referral 12/15/2022 01/14/2024 1 1 Specialty Diagnoses / Procedures Referred By Contac t Referred To Contact MR IMAGING Diagnoses Spinal stenosis of cervical region Procedures MRI CERVICAL SPINE WO IVCON MRI SPINAL CANAL CERVICAL W/O CONTRAST MATRL Mark Thompson MD [address] [place] [address] Mr Imaging [id number] Referral ID Status Reason Start Date Expiration Date Visits Requested Visits Authorized [id number] Pending Review Auto-Generat ed Referral 12/15/2022 01/14/2024 1 1 Specialty Diagnoses / Procedures Referred By Contac t Referred To Contact CT IMAGING Diagnoses Kidney stone Procedures CT FLANK WO IVCON CT ABD & PELVIS W/O CONTRAST Rudy Boyce MD [address] [place] [address] Ct Imaging [place] [address] Referral ID Status Reason Start Date Expiration Date Visits Requested Visits Authorized [id number] Pending Review Auto-Generat ed Referral 11/27/2022 12/27/2023 1 1 Specialty Diagnoses / Procedures Referred By Contac t Referred To Contact CT IMAGING Diagnoses Other intra-abdominal and pelvic swelling, mass and lump Procedures CT CHEST W IVCON DIAGNOSTIC COMPUTED TOMOGRAPHY THORAX W/CONTRAST Brandee Ramos, OCEANOGRAPHY PROFESSOR.DIRECTOR OF MARKETING ANALYTICS [address] [place] [address] Ct Imaging Referral ID Status Reason Start Date Expiration Date Visits Requested Visits Authorized [id number] Additional Clinical Info Needed Auto-Generat ed Referral 2 04/15/2023 1 1 Specialty Diagnoses / Procedures Referred By Contac t Referred To Contact CT IMAGING Diagnoses 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) Other intra-abdominal and pelvic swelling, mass and lump Procedures CT ABD/PEL W IVCON CT ABD & PELVIS W/CONTRAST Brandee Ramos, OCEANOGRAPHY PROFESSOR.DIRECTOR OF MARKETING ANALYTICS [address] [place] [address] Ct Imaging Referral ID Status Reason Start Date Expiration Date Visits Requested Visits Authorized [id number] Additional Clinical Info Needed Auto-Generat ed Referral 2 04/15/2023 1 1 Specialty Diagnoses / Procedures Referred By Contac t Referred To Contact Endocrinology Diagnoses Elevated testosterone level Procedures CONSULT TO ENDOCRINOLOGY OFFICE/OUTPATIENT [facility] 60-74 MINUTES Debbi Ruggiero MD [address] [place] [address] Referral ID Status Reason Start Date Expiration Date Visits Requested Visits Authorized [id number] Authorized PCP Requested Referral 03/02/2022 03/02/2023 1 1 Specialty Diagnoses / Procedures Referred By Contac t Referred To Contact Ent - Otolaryngology Diagnoses Nasal turbinate hypertrophy Procedures CONSULT TO ENT OFFICE/OUTPATIENT [facility] 60-74 MINUTES Karen Doshi MD [address] [facility] [place] [address] aKthy Glover DO [address] [place] [address] Referral ID Status Reason Start Date Expiration Date Visits Requested Visits Authorized [id number] Authorized PCP Requested Referral 10/02/2021 10/02/2022 1 1 Specialty Diagnoses / Procedures Referred By Contac t Referred To Contact [facility] Diagnoses Mild persistent asthma, unspecified whether complicated Procedures NITRIC OXIDE, EXHALED NITRIC OXIDE GAS DETERMINATION Karen Doshi MD [address] [facility] [place] [address] [facility] [address] [place] [address] Referral ID Status Reason Start Date Expiration Date V isits Requested Visits Authorized [id number] Closed Auto-Generate d Referral 10/02/2021 11/01/2022 1 1 Specialty Diagnoses / Procedures Referred By Contac t Referred To Contact [facility] Diagnoses Mild persistent asthma, unspecified whether complicated Procedures SPIROMETRY BASELINE ONLY SPMTRY W/VC EXPIRATORY MARY W/WO MXML VOL VNTJ Karen Doshi MD [address] [facility] [place] [address] [facility] [address] [place], [place] [id number] Referral ID Status Reason Start Date Expiration Date V isits Requested Visits Authorized [id number] Closed Auto-Generate d Referral 10/02/2021 11/01/2022 1 1 Specialty Diagnoses / Procedures Referred By Contac t Referred To Contact Allergy Diagnoses Seasonal allergies Procedures CONSULT TO ALLERGY/IMMUNOLOGY OFFICE/OUTPATIENT [facility] 60-[place] [address] [place] [address] Referral ID Status Reason Start Date Expiration Date Visits Requested Visits Authorized [id number] Authorized PCP Requested Referral 09/30/2021 09/30/2022 1 1 Specialty Diagnoses / Procedures Referred By Contac t Referred To Contact Colon and Rectal Surgery Diagnoses Endometriosis Pelvic pain in female Procedures CONSULT TO COLO-RECTAL SURGERY OFFICE/OUTPATIENT [facility] 60-74 MINUTES Hellen Thomas DO [address] [place] [id number] Riaz Alvarado DO [address] [place] [address] Referral ID Status Reason Start Date Expiration Date Visits Requested Visits Authorized [id number] Authorized PCP Requested Referral 09/08/2021 09/08/2022 1 1 Specialty Diagnoses / Procedures Referred By Contac t Referred To Contact MR IMAGING Diagnoses Endometriosis Procedures MRI FEMALE PELVIS WO/W IVCON MRI PELVIS W/O & W/CONTRAST MATERIAL Hellen Thomas DO [address] [place] [address] Mr Imaging Referral ID Status Reason Start Date Expiration Date Visits Requested Visits Authorized [id number] Pending Review Auto-Generat ed Referral 06/26/2021 07/26/2022 1 1 Specialty Diagnoses / Procedures Referred By Contac t Referred To Contact [facility] Diagnoses Spastic pelvic floor syndrome Procedures CONSULT TO PHYSICAL THERAPY PHYSICAL THERAPY EVALUATION HIGH COMPLEX 45 MINS Hellen Thomas DO [address] [place] [id number] [facility] [place] [address] [place] [address] Referral ID Status Reason Start Date Expiration Date Visits Requested Visits Authorized [id number] Pending Review Auto-Generat ed Referral 06/26/2021 06/26/2022 1 1 Additional Source Comments INFORMATION SOURCE (unrecogn ized section and content) DATE CREATED AUTHOR AUTHOR'S ORGANIZ ATION 09/17/2017 [facility] DATE CREATED AUTHOR AUTHOR'S ORGANIZ ATION 11/23/2017 [facility] DATE CREATED AUTHOR AUTHOR'S ORGANIZ ATION 01/24/[address] [facility] DATE CREATED AUTHOR AUTHOR'S ORGANIZ ATION 08/04/2020 [facility] DATE CREATED AUTHOR AUTHOR'S ORGANIZ ATION 12/06/2020 [facility] DATE CREATED AUTHOR AUTHOR'S ORGANIZ ATION 12/27/2021 [facility] DATE CREATED AUTHOR AUTHOR'S ORGANIZ ATION 09/11/2022 [facility] DATE CREATED AUTHOR AUTHOR'S ORGANIZ ATION 09/27/2022 [facility] DATE CREATED AUTHOR AUTHOR'S ORGANIZ ATION 12/02/2022 [facility] DATE CREATED AUTHOR AUTHOR'S ORGANIZ ATION 12/11/2022 [facility] DATE CREATED AUTHOR AUTHOR'S ORGANIZ ATION 12/12/2022 [facility] DATE CREATED AUTHOR AUTHOR'S ORGANIZ ATION 12/14/2022 [facility] [place] DATE CREATED AUTHOR AUTHOR'S ORGANIZ ATION 03/25/2023 [facility] DATE CREATED AUTHOR AUTHOR'S ORGANIZ ATION 03/28/2023 [facility] DATE CREATED AUTHOR AUTHOR'S ORGANIZ ATION 04/03/2023 [facility] ([place]) DATE CREATED AUTHOR AUTHOR'S ORGANIZ ATION 04/10/2023 [facility] DATE CREATED AUTHOR AUTHOR'S ORGANIZ ATION 04/11/2023 [facility] DATE CREATED AUTHOR AUTHOR'S ORGANIZ ATION 04/12/2023 [facility] DATE CREATED AUTHOR AUTHOR'S ORGANIZ ATION 04/20/2023 [facility] Amb[facility] Source Comments (unrecognize d section and content) In the event this informatio n is protected by the Federal Confidentiality of Alcohol and Drug Abuse Patient Records regulations: The Federal rules restrict any use of the information to criminally investigate or prosecute any alcohol or drug abuse patient.[facility] the event this information is protected by the Federal Confidentiality of Alcohol and Drug Abuse Patient Records regulations: The Federal rules restrict any use of the information to criminally investigate or prosecute any alcohol or drug abuse patient.[facility] HospitalIn the event this information is protected by the Federal Confidentiality of Alcohol and Drug Abuse Patient Records regulations: The Federal rules restrict any use of the information to criminally investigate or prosecute any alcohol or drug abuse patient.[facility] HospitalIn the event this information is protected by the Federal Confidentiality of Alcohol and Drug Abuse Patient Records regulations: The Federal rules restrict any use of the information to criminally investigate or prosecute any alcohol or drug abuse patient.[facility] HospitalIn the event this information is protected by the Federal Confidentiality of Alcohol and Drug Abuse Patient Records regulations: The Federal rules restrict any use of the information to criminally investigate or prosecute any alcohol or drug abuse patient.[facility] HospitalIn the event this information is protected by the Federal Confidentiality of Alcohol and Drug Abuse Patient Records regulations: The Federal rules restrict any use of the information to criminally investigate or prosecute any alcohol or drug abuse patient.[facility] HospitalIn the event this information is protected by the Federal Confidentiality of Alcohol and Drug Abuse Patient Records regulations: The Federal rules restrict any use of the information to criminally investigate or prosecute any alcohol or drug abuse patient.[facility] HospitalIn the event this information is protected by the Federal Confidentiality of Alcohol and Drug Abuse Patient Records regulations: The Federal rules restrict any use of the information to criminally investigate or prosecute any alcohol or drug abuse patient.[facility] HospitalIn the event this information is protected by the Federal Confidentiality of Alcohol and Drug Abuse Patient Records regulations: The Federal rules restrict any use of the information to criminally investigate or prosecute any alcohol or drug abuse patient.[facility] HospitalIn the event this information is protected by the Federal Confidentiality of Alcohol and Drug Abuse Patient Records regulations: The Federal rules restrict any use of the information to criminally investigate or prosecute any alcohol or drug abuse patient.[facility] HospitalIn the event this information is protected by the Federal Confidentiality of Alcohol and Drug Abuse Patient Records regulations: The Federal rules restrict any use of the information to criminally investigate or prosecute any alcohol or drug abuse patient.[facility] HospitalIn the event this information is protected by the Federal Confidentiality of Alcohol and Drug Abuse Patient Records regulations: The Federal rules restrict any use of the information to criminally investigate or prosecute any alcohol or drug abuse patient.[facility] HospitalIn the event this information is protected by the Federal Confidentiality of Alcohol and Drug Abuse Patient Records regulations: The Federal rules restrict any use of the information to criminally investigate or prosecute any alcohol or drug abuse patient.[facility] HospitalIn the event this information is protected by the Federal Confidentiality of Alcohol and Drug Abuse Patient Records regulations: The Federal rules restrict any use of the information to criminally investigate or prosecute any alcohol or drug abuse patient.[facility] HospitalIn the event this information is protected by the Federal Confidentiality of Alcohol and Drug Abuse Patient Records regulations: The Federal rules restrict any use of the information to criminally investigate or prosecute any alcohol or drug abuse patient.[facility] HospitalIn the event this information is protected by the Federal Confidentiality of Alcohol and Drug Abuse Patient Records regulations: The Federal rules restrict any use of the information to criminally investigate or prosecute any alcohol or drug abuse patient.[facility] HospitalIn the event this information is protected by the Federal Confidentiality of Alcohol and Drug Abuse Patient Records regulations: The Federal rules restrict any use of the information to criminally investigate or prosecute any alcohol or drug abuse patient.[facility] HospitalIn the event this information is protected by the Federal Confidentiality of Alcohol and Drug Abuse Patient Records regulations: The Federal rules restrict any use of the information to criminally investigate or prosecute any alcohol or drug abuse patient.[facility] HospitalIn the event this information is protected by the Federal Confidentiality of Alcohol and Drug Abuse Patient Records regulations: The Federal rules restrict any use of the information to criminally investigate or prosecute any alcohol or drug abuse patient.[facility] HospitalIn the event this information is protected by the Federal Confidentiality of Alcohol and Drug Abuse Patient Records regulations: The Federal rules restrict any use of the information to criminally investigate or prosecute any alcohol or drug abuse patient.[facility] HospitalIn the event this information is protected by the Federal Confidentiality of Alcohol and Drug Abuse Patient Records regulations: The Federal rules restrict any use of the information to criminally investigate or prosecute any alcohol or drug abuse patient.[facility] HospitalIn the event this information is protected by the Federal Confidentiality of Alcohol and Drug Abuse Patient Records regulations: The Federal rules restrict any use of the information to criminally investigate or prosecute any alcohol or drug abuse patient.[facility] HospitalIn the event this information is protected by the Federal Confidentiality of Alcohol and Drug Abuse Patient Records regulations: The Federal rules restrict any use of the information to criminally investigate or prosecute any alcohol or drug abuse patient.[facility] HospitalIn the event this information is protected by the Federal Confidentiality of Alcohol and Drug Abuse Patient Records regulations: The Federal rules restrict any use of the information to criminally investigate or prosecute any alcohol or drug abuse patient.[facility] HospitalIn the event this information is protected by the Federal Confidentiality of Alcohol and Drug Abuse Patient Records regulations: The Federal rules restrict any use of the information to criminally investigate or prosecute any alcohol or drug abuse patient.[facility] HospitalIn the event this information is protected by the Federal Confidentiality of Alcohol and Drug Abuse Patient Records regulations: The Federal rules restrict any use of the information to criminally investigate or prosecute any alcohol or drug abuse patient.[facility] HospitalIn the event this information is protected by the Federal Confidentiality of Alcohol and Drug Abuse Patient Records regulations: The Federal rules restrict any use of the information to criminally investigate or prosecute any alcohol or drug abuse patient.[facility] HospitalIn the event this information is protected by the Federal Confidentiality of Alcohol and Drug Abuse Patient Records regulations: The Federal rules restrict any use of the information to criminally investigate or prosecute any alcohol or drug abuse patient.[facility] HospitalIn the event this information is protected by the Federal Confidentiality of Alcohol and Drug Abuse Patient Records regulations: The Federal rules restrict any use of the information to criminally investigate or prosecute any alcohol or drug abuse patient.[facility] HospitalIn the event this information is protected by the Federal Confidentiality of Alcohol and Drug Abuse Patient Records regulations: The Federal rules restrict any use of the information to criminally investigate or prosecute any alcohol or drug abuse patient.[facility] HospitalIn the event this information is protected by the Federal Confidentiality of Alcohol and Drug Abuse Patient Records regulations: The Federal rules restrict any use of the information to criminally investigate or prosecute any alcohol or drug abuse patient.[facility] HospitalIn the event this information is protected by the Federal Confidentiality of Alcohol and Drug Abuse Patient Records regulations: The Federal rules restrict any use of the information to criminally investigate or prosecute any alcohol or drug abuse patient.[facility] HospitalIn the event this information is protected by the Federal Confidentiality of Alcohol and Drug Abuse Patient Records regulations: The Federal rules restrict any use of the information to criminally investigate or prosecute any alcohol or drug abuse patient.[facility] HospitalIn the event this information is protected by the Federal Confidentiality of Alcohol and Drug Abuse Patient Records regulations: The Federal rules restrict any use of the information to criminally investigate or prosecute any alcohol or drug abuse patient.[facility] HospitalIn the event this information is protected by the Federal Confidentiality of Alcohol and Drug Abuse Patient Records regulations: The Federal rules restrict any use of the information to criminally investigate or prosecute any alcohol or drug abuse patient.[facility] HospitalIn the event this information is protected by the Federal Confidentiality of Alcohol and Drug Abuse Patient Records regulations: The Federal rules restrict any use of the information to criminally investigate or prosecute any alcohol or drug abuse patient.[facility] HospitalIn the event this information is protected by the Federal Confidentiality of Alcohol and Drug Abuse Patient Records regulations: The Federal rules restrict any use of the information to criminally investigate or prosecute any alcohol or drug abuse patient.[facility] HospitalIn the event this information is protected by the Federal Confidentiality of Alcohol and Drug Abuse Patient Records regulations: The Federal rules restrict any use of the information to criminally investigate or prosecute any alcohol or drug abuse patient.[facility] HospitalIn the event this information is protected by the Federal Confidentiality of Alcohol and Drug Abuse Patient Records regulations: The Federal rules restrict any use of the information to criminally investigate or prosecute any alcohol or drug abuse patient.[facility] HospitalIn the event this information is protected by the Federal Confidentiality of Alcohol and Drug Abuse Patient Records regulations: The Federal rules restrict any use of the information to criminally investigate or prosecute any alcohol or drug abuse patient.[facility] HospitalIn the event this information is protected by the Federal Confidentiality of Alcohol and Drug Abuse Patient Records regulations: The Federal rules restrict any use of the information to criminally investigate or prosecute any alcohol or drug abuse patient.[facility] HospitalIn the event this information is protected by the Federal Confidentiality of Alcohol and Drug Abuse Patient Records regulations: The Federal rules restrict any use of the information to criminally investigate or prosecute any alcohol or drug abuse patient.[facility] HospitalIn the event this information is protected by the Federal Confidentiality of Alcohol and Drug Abuse Patient Records regulations: The Federal rules restrict any use of the information to criminally investigate or prosecute any alcohol or drug abuse patient.[facility] HospitalIn the event this information is protected by the Federal Confidentiality of Alcohol and Drug Abuse Patient Records regulations: The Federal rules restrict any use of the information to criminally investigate or prosecute any alcohol or drug abuse patient.[facility] HospitalIn the event this information is protected by the Federal Confidentiality of Alcohol and Drug Abuse Patient Records regulations: The Federal rules restrict any use of the information to criminally investigate or prosecute any alcohol or drug abuse patient.[facility] HospitalIn the event this information is protected by the Federal Confidentiality of Alcohol and Drug Abuse Patient Records regulations: The Federal rules restrict any use of the information to criminally investigate or prosecute any alcohol or drug abuse patient.[facility] HospitalIn the event this information is protected by the Federal Confidentiality of Alcohol and Drug Abuse Patient Records regulations: The Federal rules restrict any use of the information to criminally investigate or prosecute any alcohol or drug abuse patient.[facility] HospitalIn the event this information is protected by the Federal Confidentiality of Alcohol and Drug Abuse Patient Records regulations: The Federal rules restrict any use of the information to criminally investigate or prosecute any alcohol or drug abuse patient.[facility] the event this information is protected by the Federal Confidentiality of Alcohol and Drug Abuse Patient Records regulations: The Federal rules restrict any use of the information to criminally investigate or prosecute any alcohol or drug abuse patient.[facility] HospitalIn the event this information is protected by the Federal Confidentiality of Alcohol and Drug Abuse Patient Records regulations: The Federal rules restrict any use of the information to criminally investigate or prosecute any alcohol or drug abuse patient.[facility] HospitalIn the event this information is protected by the Federal Confidentiality of Alcohol and Drug Abuse Patient Records regulations: The Federal rules restrict any use of the information to criminally investigate or prosecute any alcohol or drug abuse patient.[facility] HospitalIn the event this information is protected by the Federal Confidentiality of Alcohol and Drug Abuse Patient Records regulations: The Federal rules restrict any use of the information to criminally investigate or prosecute any alcohol or drug abuse patient.[facility] HospitalIn the event this information is protected by the Federal Confidentiality of Alcohol and Drug Abuse Patient Records regulations: The Federal rules restrict any use of the information to criminally investigate or prosecute any alcohol or drug abuse patient.[facility] HospitalIn the event this information is protected by the Federal Confidentiality of Alcohol and Drug Abuse Patient Records regulations: The Federal rules restrict any use of the information to criminally investigate or prosecute any alcohol or drug abuse patient.[facility] HospitalIn the event this information is protected by the Federal Confidentiality of Alcohol and Drug Abuse Patient Records regulations: The Federal rules restrict any use of the information to criminally investigate or prosecute any alcohol or drug abuse patient.[facility] HospitalIn the event this information is protected by the Federal Confidentiality of Alcohol and Drug Abuse Patient Records regulations: The Federal rules restrict any use of the information to criminally investigate or prosecute any alcohol or drug abuse patient.[facility] HospitalIn the event this information is protected by the Federal Confidentiality of Alcohol and Drug Abuse Patient Records regulations: The Federal rules restrict any use of the information to criminally investigate or prosecute any alcohol or drug abuse patient.[facility] HospitalIn the event this information is protected by the Federal Confidentiality of Alcohol and Drug Abuse Patient Records regulations: The Federal rules restrict any use of the information to criminally investigate or prosecute any alcohol or drug abuse patient.[facility] HospitalIn the event this information is protected by the Federal Confidentiality of Alcohol and Drug Abuse Patient Records regulations: The Federal rules restrict any use of the information to criminally investigate or prosecute any alcohol or drug abuse patient.[facility] HospitalIn the event this information is protected by the Federal Confidentiality of Alcohol and Drug Abuse Patient Records regulations: The Federal rules restrict any use of the information to criminally investigate or prosecute any alcohol or drug abuse patient.[facility] HospitalIn the event this information is protected by the Federal Confidentiality of Alcohol and Drug Abuse Patient Records regulations: The Federal rules restrict any use of the information to criminally investigate or prosecute any alcohol or drug abuse patient.[facility] HospitalIn the event this information is protected by the Federal Confidentiality of Alcohol and Drug Abuse Patient Records regulations: The Federal rules restrict any use of the information to criminally investigate or prosecute any alcohol or drug abuse patient.[facility] HospitalIn the event this information is protected by the Federal Confidentiality of Alcohol and Drug Abuse Patient Records regulations: The Federal rules restrict any use of the information to criminally investigate or prosecute any alcohol or drug abuse patient.[facility] HospitalIn the event this information is protected by the Federal Confidentiality of Alcohol and Drug Abuse Patient Records regulations: The Federal rules restrict any use of the information to criminally investigate or prosecute any alcohol or drug abuse patient.[facility] HospitalIn the event this information is protected by the Federal Confidentiality of Alcohol and Drug Abuse Patient Records regulations: The Federal rules restrict any use of the information to criminally investigate or prosecute any alcohol or drug abuse patient.[facility] HospitalIn the event this information is protected by the Federal Confidentiality of Alcohol and Drug Abuse Patient Records regulations: The Federal rules restrict any use of the information to criminally investigate or prosecute any alcohol or drug abuse patient.[facility] HospitalIn the event this information is protected by the Federal Confidentiality of Alcohol and Drug Abuse Patient Records regulations: The Federal rules restrict any use of the information to criminally investigate or prosecute any alcohol or drug abuse patient.[facility] HospitalIn the event this information is protected by the Federal Confidentiality of Alcohol and Drug Abuse Patient Records regulations: The Federal rules restrict any use of the information to criminally investigate or prosecute any alcohol or drug abuse patient.[facility] HospitalIn the event this information is protected by the Federal Confidentiality of Alcohol and Drug Abuse Patient Records regulations: The Federal rules restrict any use of the information to criminally investigate or prosecute any alcohol or drug abuse patient.[facility] HospitalIn the event this information is protected by the Federal Confidentiality of Alcohol and Drug Abuse Patient Records regulations: The Federal rules restrict any use of the information to criminally investigate or prosecute any alcohol or drug abuse patient.[facility] HospitalIn the event this information is protected by the Federal Confidentiality of Alcohol and Drug Abuse Patient Records regulations: The Federal rules restrict any use of the information to criminally investigate or prosecute any alcohol or drug abuse patient.[facility] HospitalIn the event this information is protected by the Federal Confidentiality of Alcohol and Drug Abuse Patient Records regulations: The Federal rules restrict any use of the information to criminally investigate or prosecute any alcohol or drug abuse patient.[facility] HospitalIn the event this information is protected by the Federal Confidentiality of Alcohol and Drug Abuse Patient Records regulations: The Federal rules restrict any use of the information to criminally investigate or prosecute any alcohol or drug abuse patient.[facility] HospitalIn the event this information is protected by the Federal Confidentiality of Alcohol and Drug Abuse Patient Records regulations: The Federal rules restrict any use of the information to criminally investigate or prosecute any alcohol or drug abuse patient.[facility] Reason for Visit (unrecogniz ed section and content) Specialty Diagnoses / Procedures Referred By Fernando t Referred To Contact [facility] Diagnoses Strain of gastrocnemius muscle of left lower extremity, initial encounter Procedures PT REHAB FOLLOW UP ORDER THERAPEUTIC EXERCISES RE, EA 15 MIN. Tamika Platt, PT [facility] [address] [address] Referral ID Status Reason Start Date Expiration Date Visits Requested Visits Authorized [id number] Authorized PCP Requested Referral Auto-Generate d Referral 03/28/2023 5 5 Reason Comments Pelvic Pain Specialty Diagnoses / Procedures Referred By Contac t Referred To Contact Diagnoses Endometriosis Procedures CONSULT TO MINIMALLY INVASIVE GYNECOLOGIC SURGERY NEW PATIENT VISIT LEVEL [address] [place] [address] [place] [address] Referral ID Status Reason Start Date Expiration Date V isits Requested Visits Authorized [id number] Closed PCP Requested Referral Auto-Generated Referral 03/26/2021 03/26/2022 1 1 Reason Comments Derm Problem dry, peeling skin Reason Comments Sinus Problem Reason Comments Follow Up rash, head, foot and thigh Reason Comments Allergies Asthma Specialty Diagnoses / Procedures Referred By Contac t Referred To Contact Allergy Diagnoses Seasonal allergies Procedures CONSULT TO ALLERGY/IMMUNOLOGY OFFICE/OUTPATIENT [facility] 60-[place] [address] [place] [address] Referral ID Status Reason Start Date Expiration Date V isits Requested Visits Authorized [id number] Closed PCP Requested Referral 09/30/2021 09/30/2022 1 1 Reason Comments Spirometry Specialty Diagnoses / Procedures Referred By Contac t Referred To Contact [facility] Diagnoses Mild persistent asthma, unspecified whether complicated Procedures NITRIC OXIDE, EXHALED NITRIC OXIDE GAS DETERMINATION Karen Doshi MD [address] [facility] [place] [address] [facility] [address] [place] [id number] Referral ID Status Reason Start Date Expiration Date V isits Requested Visits Authorized [id number] Closed Auto-Generate d Referral 10/02/2021 11/01/2022 1 1 Specialty Diagnoses / Procedures Referred By Contac t Referred To Contact [facility] Diagnoses Mild persistent asthma, unspecified whether complicated Procedures SPIROMETRY BASELINE ONLY SPMTRY W/VC EXPIRATORY MARY W/WO MXML VOL VNTJ Karen Doshi MD [address] [facility] General Physician [place] [address] [facility] [address] [place] [address] Referral ID Status Reason Start Date Expiration Date V isits Requested Visits Authorized [id number] Closed Auto-Generate d Referral 10/02/2021 11/01/2022 1 1 Reason Comments Insurance Authorization tacrolimus 0.1% ointment Reason Comments Consult Specialty Diagnoses / Procedures Referred By Contac t Referred To Contact [facility] Diagnoses Endometriosis Pelvic pain in female Procedures CONSULT TO COLO-RECTAL SURGERY OFFICE/OUTPATIENT [facility] 60-74 MINUTES Hellen Thomas DO [address] [place] [address] Riaz Alvarado DO [address] [place] [address] Referral ID Status Reason Start Date Expiration Date V isits Requested Visits Authorized [id number] Closed PCP Requested Referral 09/08/2021 09/08/2022 1 1 Reason Comments Schedule Surgery Reason Comments Endometriosis Reason Comments Follow Up Reason Comments Received Outside Medical Records Reason Comments Vaginal Bleeding pre op question Reason Comments Post Op Reason Comments Post-Op Visit Reason Comments Post-Op Visit Reason Comments Patient Question Reason Comments Radiology CT Specialty Diagnoses / Procedures Referred By Contac t Referred To Contact CT IMAGING Diagnoses Other intra-abdominal and pelvic swelling, mass and lump Procedures CT CHEST W IVCON DIAGNOSTIC COMPUTED TOMOGRAPHY THORAX W/CONTRAST Brandee Ramos, OCEANOGRAPHY PROFESSOR.DIRECTOR OF MARKETING ANALYTICS [address] [place] [address] Ct Imaging Referral ID Status Reason Start Date Expiration Date V isits Requested Visits Authorized [id number] Closed Auto-Generat ed Referral Patient Cleared - Admin/Chairm an/Director advise to proceed 03/17/2022 05/16/2022 1 1 Reason Comments Vaginal Bleeding Reason Comments Consult Cancer Reason Comments INSTITUTION DIRECTOR ONC Tumor Board Reason Comments Results Reason Comments Acne Reason Comments Refill Request Reason Comments vv prep Reason Comments Derm Problem HS Reason Comments Appointment Reason Onset Date Comments Refill Request 10/08/2022 Reason Comments urine problem Frequent urination t hat started two days ago. Then the next day was driving and got right side flank pain. Woke this morning took Aleve because the pain is now on the left side. Reason Onset Date Comments surgery scheduling 08/12/2022 LVM to schedu le surgery Reason Comments Neck Pain Low Back Pain Established Patient Reason Comments Obesity Specialty Diagnoses / Procedures Referred By Contac t Referred To Contact Diagnoses Obesity, Class I, BMI 30-34.9 Procedures ENDOCRINE MEDICAL WEIGHT MANAGEMENT OFFICE/OUTPATIENT [facility] 60-[place] [address] [place] [address] Referral ID Status Reason Start Date Expiration Date V isits Requested Visits Authorized [id number] Closed PCP Requested Referral 09/11/2022 09/11/2023 1 1 Reason Comments Urinary Problem Sharp and frequent p ain when urinating 1 week. Reason Comments Pain Reason Comments PT Eval Specialty Diagnoses / Procedures Referred By Contac t Referred To Contact [facility] Diagnoses Strain of gastrocnemius muscle of left lower extremity, initial encounter Procedures CONSULT TO PHYSICAL THERAPY PHYSICAL THERAPY EVALUATION HIGH COMPLEX 45 MINS Ky Ford MD [address] [place] [id number] [facility] [place] [address] Referral ID Status Reason Start Date Expiration Date V isits Requested Visits Authorized [id number] Closed Auto-Generate d Referral 01/20/2023 02/25/2023 1 1 Reason Onset Date Comments Refill Request 01/29/2023 Reason Comments Radiology US Specialty Diagnoses / Procedures Referred By Contac t Referred To Contact [facility] Diagnoses Kidney stone Procedures US KIDNEY/BLADDER US RETROPERITONEAL REAL TIME W/IMAGE COMPLETE Danna Davis, OCEANOGRAPHY PROFESSOR.DIRECTOR OF MARKETING ANALYTICS [address] [place] [address] [facility] [place] [address] Referral ID Status Reason Start Date Expiration Date V isits Requested Visits Authorized [id number] Closed Auto-Generate d Referral 03/13/2022 04/12/2023 1 1 Reason Comments Radiology US Specialty Diagnoses / Procedures Referred By Contac t Referred To Contact [facility] Diagnoses S/P laparoscopic hysterectomy Pelvic pain in female Abnormality present on gross pathology S/P ovarian cystectomy Procedures US FEMALE PELVIS TRANSVAG US TRANSVAGINAL Phyllis Guzman APRN.DIRECTOR OF MARKETING ANALYTICS [address] [place] [address] [place] [address] Referral ID Status Reason Start Date Expiration Date V isits Requested Visits Authorized [id number] Closed Auto-Generate d Referral 10/19/2022 05/21/2023 1 1 Reason Comments Established Patient Specialty Diagnoses / Procedures Referred By Contac t Referred To Contact [facility] Diagnoses Spinal stenosis of cervical region Procedures MRI CERVICAL SPINE WO IVCON MRI SPINAL CANAL CERVICAL W/O CONTRAST MATRL Mark Thompson MD [address] [place] [address] [place] [address] Referral ID Status Reason Start Date Expiration Date V isits Requested Visits Authorized [id number] Closed Auto-Generat ed Referral Patient Cleared - Admin/Chairm an/Director advise to proceed or did not respond 01/26/2023 03/27/2023 1 1 Specialty Diagnoses / Procedures Referred By Contac t Referred To Contact [facility] Diagnoses Spinal stenosis of lumbar region, unspecified whether neurogenic claudication present Procedures MRI LUMBAR SPINE WO IVCON MRI SPINAL CANAL LUMBAR W/O CONTRAST MATERIAL Mark Thompson MD [address] [place] [address] Mr Imaging [id number] Referral ID Status Reason Start Date Expiration Date V isits Requested Visits Authorized [id number] Closed Auto-Generat ed Referral Clearance Not Met - Admin/Chairm an/Director Advise to Postpone/Res chedule or Not Proceed 01/26/2023 03/27/2023 1 1 Reason Comments New Patient Reason Comments Follow-up Care Teams (unrecognized sec tion and content) Medical Specialist Relationship Specialty Start Date End Date Rudy Branch DO [address] [place] [address] PCP - General Family Practice 11/04/17 Ky Carter MD Physician Neurology 07/19/18 Eduard Perera DO Primary Staff Physician Nephrology 04/24/21 Medical Specialist Relationship Specialty Start Date End Date Rudy Branch DO [address] [place], [place] [id number] PCP - General Family Practice 11/04/17 Ky Carter MD Physician Neurology 07/19/18 Eduard Perera DO Primary Staff Physician Nephrology 04/24/21 Medical Specialist Relationship Specialty Start Date End Date Rudy Branch DO [address] [place] [address] PCP - General Family Practice 11/04/17 Ky Carter MD Physician Neurology 07/19/18 Eduard Perera DO Primary Staff Physician Nephrology 04/24/21 Medical Specialist Relationship Specialty Start Date End Date Rudy Branch, DO [address] [place], [place] [id number] PCP - General Family Practice 11/04/17 Ky Carter MD Physician Neurology 07/19/18 Eduard Perera DO Primary Staff Physician Nephrology 04/24/21 Medical Specialist Relationship Specialty Start Date End Date Rudy BranchDO [address] [place], [place] [id number] PCP - General Family Practice 11/04/17 Ky Carter MD Physician Neurology 07/19/18 Eduard Perera DO Primary Staff Physician Nephrology 04/24/21 Medical Specialist Relationship Specialty Start Date End Date Rudy Branch DO [address] [place], [place] [id number] PCP - General Family Practice 11/04/17 Ky Carter MD Physician Neurology 07/19/18 Eduard Perera DO Primary Staff Physician Nephrology 04/24/21 Medical Specialist Relationship Specialty Start Date End Date Rudy BranchDO [address] [place], [place] [id number] PCP - General Family Practice 11/04/17 Ky Carter MD Physician Neurology 07/19/18 Eduard Perera DO Primary Staff Physician Nephrology 04/24/21 Medical Specialist Relationship Specialty Start Date End Date Rudy BranchDO [address] [place], [place] [id number] PCP - General Family Practice 11/04/17 Ky Carter MD Physician Neurology 07/19/18 Eduard Perera DO Primary Staff Physician Nephrology 04/24/21 Medical Specialist Relationship Specialty Start Date End Date Rudy Branch, DO [address] [place], [place] [address] PCP - General Family Practice 11/04/17 Ky Carter MD Physician Neurology 07/19/18 Eduard Perera DO Primary Staff Physician Nephrology 04/24/21 Medical Specialist Relationship Specialty Start Date End Date Rudy Branch, DO [address] [place], [place] [id number] PCP - General Family Practice 11/04/17 Ky Carter MD Physician Neurology 07/19/18 Eduard Perera DO Primary Staff Physician Nephrology 04/24/21 Medical Specialist Relationship Specialty Start Date End Date Rudy Branch, DO [address] [place], [place] [id number] PCP - General Family Practice 11/04/17 Ky Carter MD Physician Neurology 07/19/18 Eduard Perera DO Primary Staff Physician Nephrology 04/24/21 Medical Specialist Relationship Specialty Start Date End Date Rudy Branch, DO [address] [place], [place] [address] PCP - General Family Practice 11/04/17 Ky Carter MD Physician Neurology 07/19/18 Eduard Perera DO Primary Staff Physician Nephrology 04/24/21 Medical Specialist Relationship Specialty Start Date End Date Rudy Branch DO [address] [place], [place] [id number] PCP - General Family Practice 11/04/17 Ky Carter MD Physician Neurology 07/19/18 Eduard Perera DO Primary Staff Physician Nephrology 04/24/21 Medical Specialist Relationship Specialty Start Date End Date Rudy Branch DO [address] [address] PCP - General Family Practice 11/04/17 Ky Carter MD Physician Neurology 07/19/18 Eduard Perera DO Primary Staff Physician Nephrology 04/24/21 Medical Specialist Relationship Specialty Start Date End Date Rudy Branch DO [address] [place], [place] [id number] PCP - General Family Practice 11/04/17 Ky Carter MD Physician Neurology 07/19/18 Eduard Perera DO Primary Staff Physician Nephrology 04/24/21 Medical Specialist Relationship Specialty Start Date End Date Rudy Branch, DO [address] [place], [place] [phone] PCP - General Family Medicine 11/04/17 Ky Carter MD Physician Neurology 07/19/18 Eduard Perera DO Primary Staff Physician Nephrology 04/24/21 Medical Specialist Relationship Specialty Start Date End Date Rudy Branch, DO [address] [place], [place] [phone] PCP - General Family Medicine 11/04/17 Ky Carter MD Physician Neurology 07/19/18 Eduard Perera DO Primary Staff Physician Nephrology 04/24/21 Medical Specialist Relationship Specialty Start Date End Date Rudy Branch, DO [address] [place], [place] [id number] PCP - General Family Medicine 11/04/17 Ky Carter MD Physician Neurology 07/19/18 Eduard Perera DO Primary Staff Physician Nephrology 04/24/21 Medical Specialist Relationship Specialty Start Date End Date Rudy Branch, DO [address] [place], [place] [id number] PCP - General Family Medicine 11/04/17 Ky Carter MD Physician Neurology 07/19/18 Eduard Perera DO Primary Staff Physician Nephrology 04/24/21 Medical Specialist Relationship Specialty Start Date End Date Rudy BranchDO [address] [address] PCP - General Family Medicine 11/04/17 Ky Carter MD [address] [place] [address] Physician Neurology 07/19/18 Eduard Perera DO [address] [place] [address] Primary Staff Physician Nephrology 04/24/21 Medical Specialist Relationship Specialty Start Date End Date Rudy BranchDO [address] [address] PCP - General Family Medicine 11/04/17 Ky Carter MD [address] [address] Physician Neurology 07/19/18 Eduard Perera DO [address] [address] Primary Staff Physician Nephrology 04/24/21 Medical Specialist Relationship Specialty Start Date End Date Rudy BranchDO [address] [place] [address] PCP - General Family Medicine 11/04/17 Ky Carter MD [address] [address] Physician Neurology 07/19/18 Eduard Perera DO [address] [address] Primary Staff Physician Nephrology 04/24/21 Medical Specialist Relationship Specialty Start Date End Date Rudy Branch DO [address] [address] PCP - General Family Medicine 11/04/17 Ky Carter MD [address] [place] [address] Physician Neurology 07/19/18 Eduard Perera DO [address] [place] [address] Primary Staff Physician Nephrology 04/24/21 Medical Specialist Relationship Specialty Start Date End Date Rudy Branch DO [address] [place] [address] PCP - General Family Medicine 11/04/17 Ky Carter MD [address] [address] Physician Neurology 07/19/18 Eduard Perera DO [address] [address] Primary Staff Physician Nephrology 04/24/21 Medical Specialist Relationship Specialty Start Date End Date Rudy BranchDO [address] [address] PCP - General Family Medicine 11/04/17 Ky Carter MD [address] [place] [address] Physician Neurology 07/19/18 Dilma, Eduard R, DO [address] [address] Primary Staff Physician Nephrology 04/24/21 Medical Specialist Relationship Specialty Start Date End Date Rudy Branch, DO [address] [address] PCP - General Family Medicine 11/04/17 Ky Carter MD [address] [place] [address] Physician Neurology 07/19/18 Eduard Perera, DO [address] [place] [address] Primary Staff Physician Nephrology 04/24/21 Medical Specialist Relationship Specialty Start Date End Date Rudy Branch, DO [address] [address] PCP - General Family Medicine 11/04/17 Ky Carter MD [address] [place] [address] Physician Neurology 07/19/18 Eduard Perera, DO [address] [address] Primary Staff Physician Nephrology 04/24/21 Medical Specialist Relationship Specialty Start Date End Date Rudy Branch, DO [address] [address] PCP - General Family Medicine 11/04/17 Ky Carter MD [address] [place] [address] Physician Neurology 07/19/18 Eduard Perera, DO [address] [address] Primary Staff Physician Nephrology 04/24/21 Medical Specialist Relationship Specialty Start Date End Date Rudy Branch DO [address] [address] PCP - General Family Medicine 11/04/17 Ky Carter MD [address] [address] Physician Neurology 07/19/18 Eduard Perera DO [address] [address] Primary Staff Physician Nephrology 04/24/21 Medical Specialist Relationship Specialty Start Date End Date Rudy BranchDO [address] [address] PCP - General Family Medicine 11/04/17 Ky Carter MD [address] [address] Physician Neurology 07/19/18 Eduard Perera DO [address] [address] Primary Staff Physician Nephrology 04/24/21 Medical Specialist Relationship Specialty Start Date End Date Rudy BranchDO [address] [address] PCP - General Family Medicine 11/04/17 Ky Carter MD [address] [place] [address] Physician Neurology 07/19/18 Eduard Perera DO [address] [address] Primary Staff Physician Nephrology 04/24/21 Medical Specialist Relationship Specialty Start Date End Date Rudy Branch DO [address] [address] PCP - General Family Medicine 11/04/17 Ky Carter MD [address] [address] Physician Neurology 07/19/18 Eduard Perera DO [address] [place] [address] Primary Staff Physician Nephrology 04/24/21 Medical Specialist Relationship Specialty Start Date End Date Rudy BranchDO [address] [place] [address] PCP - General Family Medicine 11/04/17 Ky Carter MD [address] [place] [address] Physician Neurology 07/19/18 Eduard Perera DO [address] [place] [address] Primary Staff Physician Nephrology 04/24/21 Medical Specialist Relationship Specialty Start Date End Date Rudy BranchDO [address] [place] [address] PCP - General Family Medicine 11/04/17 Ky Carter MD [address] [place] [address] Physician Neurology 07/19/18 Eduard Perera DO [address] [place] [address] Primary Staff Physician Nephrology 04/24/21 Medical Specialist Relationship Specialty Start Date End Date Rudy BranchDO [address] [place] [address] PCP - General Family Medicine 11/04/17 Ky Carter MD [address] [place] [address] Physician Neurology 07/19/18 Eduard Perera DO [address] [place] [address] Primary Staff Physician Nephrology 04/24/21 Medical Specialist Relationship Specialty Start Date End Date Rudy Branch DO [address] [place] [address] PCP - General Family Medicine 11/04/17 Ky Carter MD [address] [place] [address] Physician Neurology 07/19/18 Eduard Perera DO [address] [place] [address] Primary Staff Physician Nephrology 04/24/21 Medical Specialist Relationship Specialty Start Date End Date Jose CarlosRudy DO [address] [place] [address] PCP - General Family Medicine 11/04/17 Ky Carter MD [address] [place] [address] Physician Neurology 07/19/18 Eduard Perera DO [address] [place] [address] Primary Staff Physician Nephrology 04/24/21 Medical Specialist Relationship Specialty Start Date End Date Rudy Branch DO [address] [place] [address] PCP - General Family Medicine 11/04/17 Ky Carter MD [address] [place] [address] Physician Neurology 07/19/18 Eduard Perera DO [address] [place] [address] Primary Staff Physician Nephrology 04/24/21 Medical Specialist Relationship Specialty Start Date End Date Rudy Branch DO [address] [place] [address] PCP - General Family Medicine 11/04/17 Ky Carter MD [address] [place] [address] Physician Neurology 07/19/18 Eduard Perera DO [address] [place] [address] Primary Staff Physician Nephrology 04/24/21 Medical Specialist Relationship Specialty Start Date End Date Rudy Branch DO [address] [place] [address] PCP - General Family Medicine 11/04/17 Ky Carter MD [address] [place] [address] Physician Neurology 07/19/18 Eduard Perera DO [address] [place] [address] Primary Staff Physician Nephrology 04/24/21 Medical Specialist Relationship Specialty Start Date End Date Rudy Branch [address] [place] [id number] PCP - General 01/24/19 Wilmar Davis MD [address] [place] [address], [address] [place] [address] Consulting Physician Gynecologic Oncology 05/04/22 Medical Specialist Relationship Specialty Start Date End Date Rudy Branch DO [address] [place] [address] PCP - General Family Medicine 11/04/17 Ky Carter MD [address] [place] [address] Physician Neurology 07/19/18 Eduard Perera DO [address] [place] [address] Primary Staff Physician Nephrology 04/24/21 Medical Specialist Relationship Specialty Start Date End Date Rudy Branch DO [address] [place] [address] PCP - General Family Medicine 11/04/17 Ky Carter MD [address] [place] [address] Physician Neurology 07/19/18 Eduard Perera DO [address] [place] [address] Primary Staff Physician Nephrology 04/24/21 Medical Specialist Relationship Specialty Start Date End Date Rudy Branch DO [address] [place] [address] PCP - General Family Medicine 11/04/17 Ky Carter MD [address] [place] [address] Physician Neurology 07/19/18 Eduard Perera DO [address] [place] [address] Primary Staff Physician Nephrology 04/24/21 Medical Specialist Relationship Specialty Start Date End Date Rudy Branch DO [address] [place] [address] PCP - General Family Medicine 11/04/17 Ky Carter MD [address] [place] [address] Physician Neurology 07/19/18 Eduard Perera DO [address] [place] [address] Primary Staff Physician Nephrology 04/24/21 Medical Specialist Relationship Specialty Start Date End Date Rudy Branch DO [address] [place] [address] PCP - General Family Medicine 11/04/17 Ky Carter MD [address] [place] [address] Physician Neurology 07/19/18 Eduard Perera DO [address] [place] [address] Primary Staff Physician Nephrology 04/24/21 Medical Specialist Relationship Specialty Start Date End Date Rudy Branch DO [address] [place] [address] PCP - General Family Medicine 11/04/17 Ky Carter MD [address] [place] [address] Physician Neurology 07/19/18 Eduard Perera DO [address] [place] [address] Primary Staff Physician Nephrology 04/24/21 Medical Specialist Relationship Specialty Start Date End Date Rudy Branch DO [address] [place], [place] [address] PCP - General Family Medicine 11/04/17 Ky Carter MD [address] [place] [address] Physician Neurology 07/19/18 Eduard Perera DO [address] [place] [address] Primary Staff Physician Nephrology 04/24/21 Medical Specialist Relationship Specialty Start Date End Date Rudy Branch DO [address] [place] [address] PCP - General Family Medicine 11/04/17 Ky Carter MD [address] [place] [address] Physician Neurology 07/19/18 Eduard Perera DO [address] [place] [address] Primary Staff Physician Nephrology 04/24/21 Medical Specialist Relationship Specialty Start Date End Date Rudy Branch DO [address] [place] [address] PCP - General Family Medicine 11/04/17 Ky Carter MD [address] [place], [place] [address] Physician Neurology 07/19/18 Eduard Perera DO [address] [place] [address] Primary Staff Physician Nephrology 04/24/21 Medical Specialist Relationship Specialty Start Date End Date Jose CarlosRudy whitmoreDO [address] [place], [place] [address] PCP - General Family Medicine 11/04/17 Ky Carter MD [address] [place] [address] Physician Neurology 07/19/18 Eduard Perera DO [address] [place] [address] Primary Staff Physician Nephrology 04/24/21 Medical Specialist Relationship Specialty Start Date End Date Jose Carlos Rudy HerreraDO [address] [place] [address] PCP - General Family Medicine 11/04/17 Ky Carter MD [address] [place] [address] Physician Neurology 07/19/18 Eduard Perera DO [address] [place] [address] Primary Staff Physician Nephrology 04/24/21 Medical Specialist Relationship Specialty Start Date End Date Jose Carlos Rudy HerreraDO [address] [place], [place] [id number] PCP - General Family Medicine 11/04/17 Ky Carter MD [address] [place], [place] [address] Physician Neurology 07/19/18 Eduard Perera DO [address] [place] [address] Primary Staff Physician Nephrology 04/24/21 Medical Specialist Relationship Specialty Start Date End Date Rudy Branch DO [address] [place] [address] PCP - General Family Medicine 11/04/17 Ky Carter MD [address] [place] [address] Physician Neurology 07/19/18 Eduard Perera DO [address] [place] [address] Primary Staff Physician Nephrology 04/24/21 Medical Specialist Relationship Specialty Start Date End Date Rudy Branch DO [address] [place] [address] PCP - General Family Medicine 11/04/17 Ky Carter MD [address] [place] [address] Physician Neurology 07/19/18 Eduard Perera DO [address] [place], [place] [address] Primary Staff Physician Nephrology 04/24/21 Medical Specialist Relationship Specialty Start Date End Date Rudy Branch DO PCP - General 08/27/16 Rudy Branch DO [address] [place], [place] [id number] PCP - [facility] PCP 03/29/22 Medical Specialist Relationship Specialty Start Date End Date Rudy Branch DO PCP - General 08/27/16 Rudy Branch DO [address] [place], [place] [id number] PCP - [facility] PCP 03/29/22 Medical Specialist Relationship Specialty Start Date End Date Rudy Branch DO PCP - General 08/27/16 Rudy Branch DO [address] [place], [place] [id number] PCP - [facility] PCP 03/29/22 Medical Specialist Relationship Specialty Start Date End Date Rudy Branch DO PCP - General 08/27/16 Rudy Branch, [address] [place], [place] [id number] PCP - [facility] PCP 03/29/22 FOR RECORDS PERTAINING TO PATIENTS WHO ARE OR HAVE BEEN ENROLLED IN A CHEMICAL DEPENDENCY/SUBSTANCEABUSE PROGRAM, SOME INFORMATION MAY BE OMITTED. This clinical summary was aggregated from multiple sources. Caution should be exercised in using it in the provision of clinical care. This summary normalizes information from multiple sources, and as a consequence, information in this document may materially change the coding, format and clinical context of patient data. In addition, data may be omitted in some cases. CLINICAL DECISIONS SHOULD BE BASED ON THE PRIMARY CLINICAL RECORDS. [employer] [facility] provides no warranty or guarantee of the accuracy or completeness of information in this document.
[2023-04-23 17:44] LABS: Hematocrit 39.2 % (37-47); Hemoglobin 12.5 g/dL (12.0-15.0); Mean Corp Hgb Conc 31.9 g/dL (32-36); Mean Corpuscular Hgb 27.7 pg (27.0-32.0); Mean Corpuscular Volume 86.7 fL (81-99); Mean Platelet Vol. 9.6 fl (6.2-12.0); Platelet Count 366 K/mm3 (150-450); RBC Distribution Width CV 13.4 % (11.6-14.6); RBC Distribution Width SD 42.3 fl (35.1-43.9); Red Blood Count 4.52 M/mm3 (4.2-5.4); White Blood Count 7.9 K/mm3 (4.4-11.0)
[2023-04-23 17:55] LABS: Erythrocyte Sedimentation Rate 5 mm/hr (0-30)
[2023-04-23 18:08] LABS: Vitamin B12 730 pg/mL (211-911); Vitamin D,25 Hydroxy 32.9 ng/mL
[2023-04-23 18:47] LABS: ALB/GLOB Ratio 0.8 RATIO (0.9-2.4); AST(SGOT) 28 U/L (15-37); Alanine Aminotransfer ALT/SGPT 47 U/L (13-56); Albumin, Serum 3.4 g/dL (3.2-5.0); Alkaline Phosphatase 75 U/L (45-117); Anion Gap 3 (5-15); BUN 7 mg/dL (7-18); BUN/Creat Ratio 9.3 RATIO (10-20); Calcium,Total 8.9 mg/dL (8.5-10.1); Chloride 107 mmol/L (98-107); Creatinine, Serum 0.75 mg/dL (0.55-1.02); EST Glomerular Filtration Rate 91 mL/min (>60); Est Glom Filt Rate - Afr Amer 110 mL/min (>60); Glucose 158 mg/dL (74-106); Iron 51 ug/dL (50-170); Iron Binding Capacity,Total 307 ug/dL (250-450); PERCENT IRON SATURATION 16.6 % (15.0-55.0); Potassium 3.8 mmol/L (3.5-5.1); Protein, Total 7.4 g/dL (6.4-8.2); Sodium Level 139 mmol/L (136-145)
== END | disposition home or self-care (01) ==
PROVIDERS: PCP Family Medicine
DX: R19.5 Other fecal abnormalities (principal)
CPT/HCPCS: 36415; 80053; 82306; 82607; 82746; 83540; 83550; 85027; 85652; 86140

== ENCOUNTER → 2023-05-03 | Outpatient (CLI) | payer MEDICAID, SELFPAY ==
[2023-05-06 00:07] LABS: Calprotectin, Stool 137 ug/g (0-120)
== END | disposition home or self-care (01) ==
PROVIDERS: PCP Family Medicine
DX: R19.5 Other fecal abnormalities (principal)
CPT/HCPCS: 83993

== ENCOUNTER → 2023-05-24 | Outpatient (CLI) | payer MEDICAID, SELFPAY ==
[2023-05-24 18:02] LABS: Insulin 82.2 mU/L (2.6-37.6)
[2023-05-24 18:04] LABS: Hemoglobin A1c 5.9 % (3.8-5.6)
[2023-05-24 18:05] LABS: Color, Urine Yellow (Yellow); Glucose, Dipstick Normal (Normal); Ketone-Dipstick 5 mg/dl (Negative); Leukocyte Esterase-Dipstick Negative /ul (Negative); Nitrite-Dipstick Negative (Negative); Occult Blood-Urine Negative /ul (Negative); Protein-Dipstick Negative (Negative); Urine Bilirubin Dipstick Negative (Negative); Urine Clarity Sl. Cloudy (Clear); Urine Urobilinogen Normal (Normal)
[2023-05-31 04:06] LABS: Pancreatic Elastase, Fecal > 500 (>200)
== END | disposition home or self-care (01) ==
LOC: MTLAB 14:49
PROVIDERS: PCP Family Medicine; Referring Provider Family Medicine; Visit Provider Family Medicine
DX: R30.0 Dysuria (principal); R73.9 Hyperglycemia, unspecified; R19.7 Diarrhea, unspecified
CPT/HCPCS: 36415; 81002; 82653; 83036; 83525; 87086

== ENCOUNTER 2023-06-17 15:21 | Emergency (ER) | payer MEDICAID, SELFPAY ==
[2023-06-17 15:23] VITALS: BP 123/80; PULSE 82; RESP 18; TEMP 36; O2SAT 100; BMI 34.7
--- NOTE | 2023-06-17 15:43 | EDS_ITS ---
HPI History of Present Illness Chief Complaint: Abd Pain Informant: patient Onset/Context/Timing Onset: Days (3 to 4 days) Narrative Narrative: Patient presents secondary to upper abdominal pain for the past 3 to 4 days. She states she initially just had discomfort in her upper abdomen. She had difficult time sleeping because of pain and then woke the next morning with vomiting and diarrhea. She has not noted blood in her stool or vomitus with this particular illness. No fever or chills. She does have a history of IBS. She states this is not typical of her IBS flares. She left a message for Dr. Mehta's office but has not heard back. She talked to her oncologist at today who recommended she come in for a CT scan. She has a history of ovarian cancer with lesion noted on the outer portion of the bowel. This was surgically removed in January 2022. Patient is not currently on chemotherapy or radiation. [facility] Medical History (Updated 06/17/23 @ 20:[address] Ceci Rivera MD) Acid reflux Acute maxillary sinusitis, unspecified Anal fissure Anemia Ankylosing spondylitis Anxiety Arthritis Asthma Back pain Diarrhea Diverticulosis Ectopic cardiac beats Edema Endometriosis Exercise-induced asthma Fatigue h/o lesion removal Hematochezia Hemorrhoids Hepatic steatosis History of back problems History of fatty infiltration of liver History of Lyme disease History of steroid therapy Hypertension Irregular heart beat Kidney disease Kidney stones Left leg paresthesias Leg cramps Lumbar strain lysis of adensions (~09/2019) Medullary sponge kidney of both kidneys Migraine headache Mitral regurgitation Non-smoker Ovarian cancer Ovarian cyst PCOS (polycystic ovarian syndrome) POTS (postural orthostatic tachycardia syndrome) Prolapse of intestine Rash Reflux involving intestinal tract Restless legs Sinus tachycardia Sleep apnea Symptomatic bradycardia Syncope Tachycardia Wears glasses Home Medications multivitamin 1 tab PO DAILY 12/13/17 [History Last Taken 09/17/18] albuterol sulfate 90 mcg/actuation aerosol inhaler 1 - 2 puff inhalation Q6H PRN PRN Asthma 10/19/19 [History Last Taken Unknown] atenolol 25 mg tablet 25 mg PO DAILY 07/08/20 [History Last Taken Unknown] potassium chloride 20 mEq tablet,extended release 20 meq PO DAILY 08/06/20 [Hist ory Last Taken Unknown] baclofen 10 mg tablet 10 mg PO BID PRN muscle pain #60 tabs 02/10/21 [Rx Last Taken Unknown] ondansetron 4 mg disintegrating tablet 4 mg PO Q8H PRN nausea and vomiting #90 tabs 04/18/21 [Rx Last Taken Unknown] pantoprazole 40 mg tablet,delayed release 40 mg PO DAILY gerd 05/19/21 [History Last Taken Unknown] cetirizine 10 mg tablet (Zyrtec) 10 mg PO DAILY PRN allergies 11/10/21 [History Last Taken Unknown] sucralfate 100 mg/mL oral suspension 10 ml PO QACHS #1,000 mL 12/15/21 [Rx Last Taken Unknown] dicyclomine 20 mg tablet 20 mg PO TID PRN abdominal pain #14 tabs 06/17/23 [Rx Last Taken Unknown] oxycodone 5 mg tablet 5 mg PO Q6H PRN pain 3 days #14 tabs 06/17/23 [Rx Last Taken Unknown] Allergy/AdvReac Type Severity Reaction Status Date / Time cephalexin monohydrate Allergy Severe Anaphylaxis Verified 06/17/23 15:23 [From Keflex] cyclobenzaprine Allergy Severe Mental Verified 06/17/23 15:23 [From Flexeril] status change latex Allergy Mild Swelling Verified 06/17/23 15:23 eucalyptus AdvReac Severe tachycardia, Verified 06/17/23 15:23 close airway NSAIDS (Non-Steroidal AdvReac Severe GI upset Verified 06/17/23 15:23 Anti-Inflamma tamsulosin [From Flomax] AdvReac Severe Low BP/HR Verified 06/17/23 15:23 tizanidine AdvReac Severe Low HR Verified 06/17/23 15:23 ciprofloxacin [From Cipro] AdvReac diarrhea, Verified 06/17/23 15:23 nausea, tachycardia doxycycline AdvReac Diarrhea Verified 06/17/23 15:23 Family History Mother Heart disease Hypertension Father Heart disease Diabetes Hypertension Surgical History H/O cystoscopy (~09/2019) H/O dilation and curettage (~09/2019) History of History of cholecystectomy History of hernia repair History of hysterectomy Hx laparoscopic cholecystectomy (~09/2019) Hx of removal of ovary Social History Smoking Status: Never smoker Electronic Cigarette Use: not used second hand exposure: No alcohol intake: never substance use type: does not use caffeine: No what type of physical activity do you participate in: walking frequency: 5-6 times per week seatbelt use: always do you feel safe at home: Yes additional social history: Single- Currently unemployed ROS ROS ED Constitutional Constitutional ED: Denies chills or fever(s) Eyes Eyes: Denies change in vision or discharge from eye(s) ENT ENT ED: Denies discharge from eye(s), rhinorrhea or sore throat Cardiovascular Cardiovascular: Denies chest pain or palpitations Respiratory/Chest Respiratory/Chest: Denies cough or dyspnea Gastrointestinal Gastrointestinal: Reports abdominal pain, diarrhea, nausea and vomiting Genitourinary Genitourinary ED: Denies dysuria Musculoskeletal Musculoskeletal: Denies back pain or extremity pain Integumentary Denies Abrasions or rash Neurologic Neurologic: Denies headache(s) or weakness Psychiatric Psychiatric: Denies anxiety or depression Allergic/Immunologic Allergic/Immunologic ED: Denies lip swelling or urticaria EXAM Physical Exam Const Vital Signs: 06/17/23 15:23 06/17/23 18:25 Temperature 96.8 F L Temperature Source Temporal Pulse Rate 82 78 Respiratory Rate 18 16 Blood Pressure 123/80 H 115/64 Blood Pressure Mean 94 81 Pulse Ox 100 100 Oxygen Delivery Method Room Air Room Air Positive well nourished and well developed General Appearance ED: well developed HEENT Reports moist mucous membranes Eyes EOMs intact bilaterally Chest Wall inspection of chest normal and palpation of chest normal Resp normal respiratory effort and clear to auscultation bilaterally Cardio regular rate and regular rhythm GI GI Narrative: Abdomen soft with tenderness in the right upper quadrant. No guarding or rebound. No palpable masses. Hypoactive bowel sounds noted. Extremity normal to inspection Neuro oriented x3 and no sensory deficits noted Motor Exam: strength 5/5 throughout Psych mental status grossly normal Skin no rashes or lesions noted MDM MDM MDM Narrative Medical decision making narrative: IV line established. Labwork obtained to evaluate for leukocytosis, anemia, and electrolyte derangement. CT scan of the abdomen pelvis with p.o. and IV contrast obtained to evaluate for bowel obstruction, mass, colitis. Patient given morphine and Zofran for pain along with IV fluids. History & Record Review Discussion w/independent historian: Patient Additional record(s) reviewed:: Prior outpatient record, Prior ED visit and Prior labs Lab Data Attestation: I reviewed the patient's lab results. Labs: Laboratory Results - last 24 hr 06/17/23 16:00 WBC 9.3 RBC 4.74 Hgb 13.0 Hct 40.9 MCV 86.3 MCH 27.4 MCHC 31.8 L RDW Std Deviation 40.3 RDW Coeff of Karon 12.8 Plt Count 334 MPV 8.8 Immature Gran % (Auto) 0.200 Neut % (Auto) 62.9 Lymph % (Auto) 29.4 [place] % (Auto) 5.7 Eos % (Auto) 1.6 Baso % (Auto) 0.2 Absolute Neuts (auto) 5.8 Absolute Lymphs (auto) 2.72 Nucleated RBC % 0 ESR 5 Sodium 139 Potassium 3.4 L Chloride 107 Carbon Dioxide 27.0 Anion Gap 5 BUN 8 Creatinine 0.76 Estim Creat Clear Calc 101.27 Est GFR (MDRD) Af Amer 108 Est GFR (MDRD) Non-Af 89 BUN/Creatinine Ratio 10.5 Glucose 95 Calcium 9.0 Total Bilirubin 0.30 Direct Bilirubin 0.09 AST 26 ALT 32 Alkaline Phosphatase 80 C-React Prot Ext Range 22.00 H Total Protein 8.0 Albumin 3.8 Globulin 4.2 Lipase 53 Radiography Diagnostic Testing: Clinical Impression(s) from Imaging Studies Abdomen/Pelvis CT 06/17/23 17:35 IMPRESSION: Hepatomegaly. No biliary dilatation. Bilateral renal stones. No hydronephrosis. Electronically Signed: Lazarus Gomez MD at 18:54 EDT , Treatment and Re-Evaluation :: CBC was normal white count 9.3 with a hemoglobin of 13.0. Differential unremarkable. Chemistry studies significant only for slightly low potassium at 3.4. Renal function is normal. LFTs and lipase are normal. CT scan with p.o. and IV contrast obtained. Hepatomegaly is noted with no biliary dilatation. Bilateral renal stones with no evidence of hydronephrosis. On my review of the imaging it does appear that she has thickening of the duodenum. This may have just been caught during peristalsis. I spoke with Dr. Mehta, her GI doctor. He recommended getting a sed rate and CRP to see if she has evidence of acute inflammation. Her CRP is elevated at 22 but her sed rate is normal at 5. Test results are discussed with the patient. We will continue supportive care at home. She has Zofran that she can use for nausea as well as Carafate and pantoprazole. I will write her for some Bentyl as well as some oxycodone for pain. Patient will start with a liquid diet and slowly advance. Return instructions were provided. Discharge Plan Triage Chief Complaint: Abd Pain ED Provider: Ceci Rivera Dx/Rx/DC Orders Clinical Impression: Gastroenteritis, Abdominal pain Instructions: ED Abdominal Pain Unkn Cause Fem, ED Gastroenteritis, Viral (Adult) Prescriptions: New dicyclomine 20 mg tablet 20 mg PO TID PRN (Reason: abdominal pain) Qty: 14 0RF oxycodone 5 mg tablet 5 mg PO Q6H PRN (Reason: pain) 3 Days Qty: 14 0RF No Action multivitamin tablet 1 tab PO DAILY cetirizine [Zyrtec] 10 mg tablet 10 mg PO DAILY PRN (Reason: allergies) atenolol 25 mg tablet 25 mg PO DAILY potassium chloride 20 mEq tablet extended release 20 meq PO DAILY baclofen 10 mg tablet 10 mg PO BID PRN (Reason: muscle pain) Qty: 60 2RF ondansetron 4 mg tablet,disintegrating 4 mg PO Q8H PRN (Reason: nausea and vomiting) Qty: 90 1RF albuterol sulfate 1 INHALER inhaler 1 - 2 puff INHALATION Q6H PRN PRN (Reason: Asthma) pantoprazole 40 mg tablet,delayed release (DR/EC) 40 mg PO DAILY Rx Instructions: TAKE 1 TABLET BY MOUTH EVERY DAY sucralfate 100 mg/mL suspension 10 ml PO QACHS Qty: 1000 0RF Primary Care Provider: Anant Curran Referrals: Anant Curran DO [Primary Care Provider] - 3-5 Days if not improving Logan Mehat DO [Med Staff - Active Staff] - As soon as possible Disposition Disposition: Home, Self Care
[2023-06-17] MEDS: Morphine 4 MG/ML Syringe IV (16:03)
[2023-06-17] MEDS: Ondansetron 4 MG/2 ML Vial IV (16:03)
[2023-06-17] MEDS: 0.9% Normal Saline (1000mL) 1,000 ML 1000 ML IV (16:04)
[2023-06-17 16:10] LABS: Absolute Lymphocyte Count 2.72 X10^3/uL (0.83-4.51); Absolute Neutrophil Count 5.8 X10^3/uL (2.0-7.7); Basophil# 0.02 X10^3/uL; Basophil% 0.2 % (0-1); Eosinophil# 0.15 X10^3/uL; Eosinophils% 1.6 % (0-5); Hematocrit 40.9 % (37-47); Lymphocyte # 2.72 X10^3/ul (0.83-4.51); Lymphocyte % 29.4 % (19-41); Mean Corp Hgb Conc 31.8 g/dL (32-36); Mean Corpuscular Hgb 27.4 pg (27.0-32.0); Mean Corpuscular Volume 86.3 fL (81-99); Mean Platelet Vol. 8.8 fl (6.2-12.0); Monocyte# 0.53 X10^3/uL; Monocyte% 5.7 % (0-10); NRBC Flagged by Analyzer 0 % (0-5); Neutrophil # 5.82 X10^3/uL (2.7-7.7); Neutrophil % 62.9 % (47-70); Platelet Count 334 K/mm3 (150-450); RBC Distribution Width CV 12.8 % (11.6-14.6); RBC Distribution Width SD 40.3 fl (35.1-43.9); Red Blood Count 4.74 M/mm3 (4.2-5.4); White Blood Count 9.3 K/mm3 (4.4-11.0)
[2023-06-17 16:34] LABS: AST(SGOT) 26 U/L (15-37); Alanine Aminotransfer ALT/SGPT 32 U/L (13-56); Albumin, Serum 3.8 g/dL (3.2-5.0); Alkaline Phosphatase 80 U/L (45-117); Anion Gap 5 (5-15); BUN 8 mg/dL (7-18); BUN/Creat Ratio 10.5 RATIO (10-20); Bilirubin, Direct 0.09 mg/dL (0.00-0.30); Chloride 107 mmol/L (98-107); Creatinine, Serum 0.76 mg/dL (0.55-1.02); EST Glomerular Filtration Rate 89 mL/min (>60); Est Glom Filt Rate - Afr Amer 108 mL/min (>60); Estimated Creatinine Clearance 101.27 ml/min; Globulin 4.2 g/dL (2.2-4.2); Glucose 95 mg/dL (74-106); Lipase 53 U/L (13-75); Potassium 3.4 mmol/L (3.5-5.1); Sodium Level 139 mmol/L (136-145)
--- NOTE | 2023-06-17 17:35 | CT_ITS ---
STUDY: CT ABDOMEN AND PELVIS WITH CONTRAST REASON FOR EXAM: Female, 37 years old. Abd pain -- IV PO Contrast RADIATION DOSAGE (If Supplied By Facility): CTDIvol = ( 15.76 ) mGy, DLP = ( 1149.56 ) mGycm TECHNIQUE: Transaxial images were obtained from the dome of the diaphragm to the symphysis pubis with oral contrast. IV 100mL Isovue-300 was administered. Sagittal and coronal images were reconstructed. Individualized dose optimization techniques were used for this CT. COMPARISON: None. FINDINGS: The visualized lung bases are unremarkable. The visualized portions of the heart are within normal limits. There is hepatomegaly with diffuse hepatic enlargement. Gallbladder is not seen consistent with cholecystectomy. Normal spleen. Normal pancreas. Normal bilateral adrenal glands. There is 0.3 cm stone of the right kidney. There is 0.4 cm stone of the left kidney. Normal visualized stomach. Normal small intestine. Normal colon. The appendix is visualized and appears normal. Normal abdominal aorta. Normal inferior vena cava. Normal retroperitoneum. Normal urinary bladder. There is absence of the uterus consistent with a prior hysterectomy. There is no free fluid in the abdomen or pelvis. Normal abdominal wall. Normal osseous structures. CT/Abdomen/Pelvis WITH Contrast IMPRESSION: Hepatomegaly. No biliary dilatation. Bilateral renal stones. No hydronephrosis. Electronically Signed: Lazarus Gomez MD at 18:54 EDT ,
[2023-06-17 18:25] VITALS: BP 115/64; PULSE 78; RESP 16; O2SAT 100
[2023-06-17] MEDS: 0.9% Normal Saline (1000mL) 1,000 ML 150 ML IV (18:26)
[2023-06-17 20:00] VITALS: BP 115/63; PULSE 75; RESP 18; TEMP 36.7; O2SAT 100
[2023-06-17 20:07] LABS: Erythrocyte Sedimentation Rate 5 mm/hr (0-30)
[2023-06-17 20:38] VITALS: BP 116/64; PULSE 71; RESP 18; TEMP 36.8; O2SAT 100
== END 2023-06-17 20:40 | disposition home or self-care (01) ==
PROVIDERS: Emergency Provider Emergency Medicine; PCP Family Medicine; Visit Provider Emergency Medicine
DX: K52.9 Noninfective gastroenteritis and colitis, unspecified (principal); J45.909 Unspecified asthma, uncomplicated; K21.9 Gastro-esophageal reflux disease without esophagitis; I10 Essential (primary) hypertension; N20.0 Calculus of kidney; R16.0 Hepatomegaly, not elsewhere classified
CPT/HCPCS: 74177; 80048; 80076; 83690; 85025; 85652; 86140; 96361; 96374; 96375; 99283; J7030; Q9967; J2405

== ENCOUNTER → 2023-06-28 | Outpatient (CLI) | payer MEDICAID, SELFPAY ==
[2023-06-28 16:25] LABS: Anion Gap 4 (5-15); BNP,B-Type NATRIURETIC PEPTIDE 10.1 pg/mL (0-100); BUN 8 mg/dL (7-18); BUN/Creat Ratio 11.1 RATIO (10-20); Chloride 108 mmol/L (98-107); Creatinine, Serum 0.72 mg/dL (0.55-1.02); EST Glomerular Filtration Rate 95 mL/min (>60); Est Glom Filt Rate - Afr Amer 115 mL/min (>60); Glucose 97 mg/dL (74-106); Potassium 3.8 mmol/L (3.5-5.1); Sodium Level 140 mmol/L (136-145)
== END | disposition home or self-care (01) ==
LOC: LAB 14:25
PROVIDERS: PCP Family Medicine; Referring Provider Nurse Practitioner Family; Visit Provider Nurse Practitioner Family
DX: R06.09 Other forms of dyspnea (principal); R00.0 Tachycardia, unspecified; I49.8 Other specified cardiac arrhythmias
CPT/HCPCS: 36415; 80048; 83880

== ENCOUNTER 2023-07-15 07:46 | Day surgery (SDC) | payer MEDICAID, SELFPAY ==
[2023-07-15] VITALS (7 sets, daily range): BP systolic 108–118; BP diastolic 62–80; PULSE 76–108; RESP 16; TEMP 36.2–36.7; O2SAT 98–100; BMI 34.7
--- NOTE | 2023-07-15 | GASB_PTH ---
PATIENT: YAA ARCE LOC: EN U#:[id number] AGE/SX: 37/F ROOM: RE07/15/[address]: Dr. Logan Mehta DO : 1985 BED: DIS: 07/15/2023 SPEC #: [id number] RECD: 07/15/23 12:51 STATUS: GWEN REChema #: [id number] JENIFFER: 07/15/23 00:[address]: Logan Mehta DEPT: SURGICAL PATHOLOGY RECD BY: Ayad Staples ENTERED: 07/15/23 12:52 SP TYPE: Gastric Bx OTHR DR: Dr. Anant Curran DO Tissues: A - Duodenum, NOS B - Gastric mucous membrane C - Ileum, NOS D - COLON BIOPSY Procedures: Surgery Specimen Level IV HEADER OPERATION: Colonoscopy, EGD with biopsy PRE-OP DIAGNOSIS: Epigastric abdominal pain, GI bleeding, Diarrhea TISSUE SUBMITTED: A- Duodenum biopsy, B- Gastric body biopsy, C- Terminal ileum biopsy, D- Random colon biopsy MICROSCOPIC DIAGNOSIS A. Duodenum, biopsy: Fragments of duodenal mucosa, no pathologic diagnosis. B. Gastric body, biopsy: Mild gastritis. See microscopic description and comment. C. Terminal Ileum, biopsy: Fragments of small intestinal mucosa, no pathologic diagnosis. D. Colon, random biopsy: Fragments of colonic mucosa, no pathologic diagnosis. AUDIE/ 07/16/2023 COMMENT B. The results of immunohistochemistry for Helicobacter pylori will be reported separately ([id number]). MICROSCOPIC DESCRIPTION Slides are reviewed. B. The specimen shows fragments of gastric mucosa with chronic inflammatory cell infiltrates in the lamina propria consisting of lymphocytes and plasma cells, consistent with mild chronic gastritis. GROSS DESCRIPTION A. Received in fixative is one container labeled with the patient's name and designated Duodenum biopsy. The specimen consists of multiple irregular fragments of light hassan soft tissue that in aggregate measure 0.6 x 0.5 x 0.1 cm. The specimen is totally submitted in one cassette. B. Received in fixative is one container labeled with the patient's name and designated Gastric body biopsy. The specimen consists of two irregular fragments of light hassan soft tissue that in aggregate measure 1.0 x 0.2 x 0.1 cm. The specimen is totally submitted in one cassette. C. Received in fixative is two container labeled with the patient's name and designated Terminal ileum biopsy. The specimen consists of one irregular fragment of light hassan soft tissue that measures 0.4 x 0.3 x 0.1 cm. The specimen is totally submitted in one cassette. D. Received in fixative is one container labeled with the patient's name and designated Random colon biopsy. The specimen consists of multiple irregular fragments of light hassan soft tissue that in aggregate measure 2.0 x 0.6 x 0.1 cm. The specimen is totally submitted in one cassette. AUDIE/ 07/15/2023 TC:3 CPT:02188o0
[2023-07-15] MEDS: Lactated Ringers 1,000 ML 15 ML IV (08:10)
--- NOTE | 2023-07-15 08:45 | IMM_PTH ---
PATIENT: YAA ARCE LOC: EN U#:[id number] AGE/SX: 37/F ROOM: RE07/15/[address]: Dr. Logan Mehta DO : 1985 BED: DIS: 07/15/2023 SPEC #: [id number] RECD: 07/15/23 13:55 STATUS: GWEN REQ #: [id number] JENIFFER: 07/15/23 08:[address]: Logan Mehta DEPT: IMMUNOHISTOCHEMISTRY RECD BY: Jason Sood ENTERED: 07/15/23 13:55 SP TYPE: IMMUNO OTHR DR: Dr. Anant Curran DO Tissues: B - Stomach, NOS Procedures: H Pylori (initial) PHYSICIAN & INSTITUTION [place] [id number] SPECIMEN INFORMATION: Tissue Source: B- Gastric body biopsy Clinical Info: Epigastric abdominal pain, GI bleeding, Diarrhea Specimen Number: [id number] CPT code: 29511 METHODOLOGY: Deparaffinized sections of prefer/formalin-fixed tissue or PAP/DQ stained slides are incubated with monoclonal/polyclonal antibodies/oligonucleotide probes. Localization is made via biotin free immunoperoxidase method. Appropriate controls are performed and reacted as expected. Results on target cell population are indicated in the following table: RESULTS: ANTIBODY / CLONE RESULT Block B H Pylori (polyclonal) negative These tests were developed and their performance characteristics determined by [facility]. They may not have been cleared or approved by the U.S. Food and Drug Administration. The FDA has determined that such clearance or approval is not necessary. The above immunohistochemical/dualISH markers are ordered and reviewed by the Pathologist. INTERPRETATION: B. Gastric body, biopsy: Negative for Helicobacter pylori organisms. AUDIE/ 07/16/23
--- NOTE | 2023-07-15 09:11 | HP.PCM_ITS ---
History and Physical Date of Admission: 07/15/23 Diarrhea, hematochezia Details: YAA ARCE, is a 37 F who presents to the office today for diarrhea and hematochezia Prior workup: ?EGD/colonoscopy 08.09.20?EGD gastritis; single gastric fundic gland polyp; bilious fluid in stomach ? Colonoscopy internal/external hemorrhoids. No path changes ?GET 6.4.21?52.96 minutes (12-56) *BGI established 03.20.21 with long-standing constipation alternating with diarrhea, abdominal anal fissure history; diagnosed with possible IBD at age 1. s/p cholecystectomy 10.27.19.?Start budesonide 6mg OV 04.18.21 has been taking budesonide 3mg; continues to have frequent loose stool.?Start Zofran and xifaxan (not covered by insurance) OV 05.16.21 dexamethasone started for COVID infection, GI symptoms improved with this more than budesonide. Notes increased abdominal pain with formed stools. ?CT abd/pel 06.20.21?renal calculi, small fatty umbilical hernia OV 10.22.21 question IBD versus IBS. Significant endometriosis which is affecting colon, expecting to undergo surgery ?Biochemical 10.22.21?CBC, ESR, CMP, LDH, GAME, ANIA, IAN comp, ANCA, celiac, IBD without pertinent abnormality ? CRP H11.1 ?Stool?calprotectin, lactoferrin, C.Difficile, EP, O/P, giardia WNL ?Urine 05.25.21 ?MRI pel 5.06.17?endometriosis with fibrosis/infiltrative endometriosis; sigmoid and cecum tethering to right sidewall/right ovarian lesion and fibrous tethering to rectum. OV 8.25.22 Awaiting colorectal surgery [facility] to commit to endometriosis date.? Mesalamine supp?somewhat helpful ?CT abd/pel (ED) 04.25.22?hepatomegaly; renal calculi; right ovarian cyst versus follicle ?US 3.3.23 (PCP)?hepatomegaly 18.3cm with fatty infiltration ?KUB 7.6.23?renal calculi ?GET 8.2.23 (PCP)?46.42 minutes (12-56) OV 05.28.23 Epigastric abdominal pain after eating solid foods, early satiety. After eating a meal will flush, feel heart racing, nausea and abdominal and flank pain. Couple weeks ago, blood seen in emesis and loose stools. Pantoprazole increased to 40 mg BID by PCP, ineffective and since discontinued taking pantoprazole. On 05/03/23 stool calprotectin, high at 137 ordered by PCP. ROS Const Constitutional: Positive for fatigue, fever(s), frequent falls and weakness; No headache(s) or weight change ENT ENT: No headache(s) or difficulty swallowing Cardio Cardiology: Positive for leg pain with exertion Gastro GI: Positive for abdominal pain, bloating, change in bowel habits, constipation, diarrhea, heartburn, excessive flatus, Vomiting blood/hematemesis and nausea/dyspepsia; No difficulty swallowing, Blood in stool or vomiting Musc Musculoskeletal: Positive for joint pain, back pain, joint swelling, muscle cramps, muscle weakness, numbness, stiffness, tingling, restless legs, leg pain at night and leg pain with exertion; No Arthritis or sciatica Skin Skin: Positive for dry skin, itchy eyes and rash; No lesions Neuro Neurology: Positive for weakness, frequent falls, numbness, tingling and restless legs; No behavioral changes, unsteady gait/balance, headache(s), tremor(s), Increased tone in limbs, paralysis or seizures Psych Psychiatric: No anxiety, No behavioral changes, No depression, No paranoia, No Compulsive Behavior, No hyperactivity, No inattentiveness, No obsessions/compulsions, No Temper Tantrums and No suicidal ideation Endo Endocrine: Positive for fatigue; No weight change Aller/Imm Allergy/Immunologic: Positive for itchy eyes Marcus/Lymp Hematologic/Lymphatic: No easy bleeding or easy bruising Exam Const General: cooperative and healthy appearing Orientation: alert, awake and oriented x3 HENMT Head: normal to inspection Chest Chest palpation & inspection: normal inspection of the chest Resp Effort & Inspection: normal respiratory effort and able to speak in complete sentences Cardio Rate: regular rate Pulses: radial pulses present GI Inspection: normal to inspection Musc Thoracic/Lumbar Spine: thoracic and lumbar spine normal to inspection, paraspinal tenderness on the left in the mid lumbar and in the lower lumbar (With palpation exacerbating left lateral thigh paresthesias) and lumbar spinal tenderness Skin General: no rashes or lesions noted Neuro General: patient alert, patient awake and patient oriented x3 Cognition: normal cognition Speech: speech normal Extrem General: full ROM, capillary refill normal and normal exam except as noted (Wiley wrap to the left gastrocnemius) Psych Appearance: grossly normal Mental Status: mental status grossly normal Mood: congruent mood Affect: normal affect Speech and Movement: speech and movement normal Attitude: cooperative Quality Reporting Tobacco Screening ([facility] 138) Smoking Status: Never smoker Assessment and Plan Assessment and Plan (1) Epigastric abdominal pain: Status: Acute (2) GI bleeding: Status: Acute (3) Diarrhea: Status: Acute Plan: 37-year-old with 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 Over the last month or so she has been having worsening nausea, abdominal pain, cramping and diarrhea. Her multiple episodes of nausea called vomiting which resulted in an upper GI bleed. She also did see some blood in her stool and was having symptoms of tenesmus and diarrhea for more than 5-6 times a day. She has no rashes, eye findings, recent infection. She does have a history of elevated CRPs from unknown etiology along with having recent worsening diarrhea. Her fecal calprotectin was elevated 139. Her stool elastase is pending. I do not see a stool culture or C. difficile toxin assay that was drawn. She is little bit better at this time. She was also diagnosed with ovarian cancer implant to the colon that resulted in a small resection without the need for surgery involving a sigmoid colectomy or diversion. She has not lost any weight which is a good sign. She denies any myalgias. She does have some fatigue. Recommendations: -Upper and lower endoscopy to evaluate upper and lower GI tract for inflammatory bowel disease exacerbation in particular Crohn's disease. Also recommend direct endoscopic evaluation the patient's hematemesis and hematochezia. I have examined the patient and the H&P has been reviewed. There are no clinical changes since date of exam.
--- NOTE | 2023-07-15 09:38 | OP.EGD_ITS ---
Patient Name: Kaya Vera Procedure Date: 07/15/2023 9:15 AM Date of : 1985 Age: 37 Procedure: Upper GI endoscopy Indications: Epigastric abdominal pain Providers: Logan Mehta DO Referring MD: Anant Curran Medicines: Monitored Anesthesia Care Patient Profile: This is a 37 year old female. Refer to note in patient chart for documentation of history and physical. Patient has symptoms of acute epigastric abdominal pain and chronic epigastric abdominal pain. Complications: No immediate complications. Procedure: Pre-Anesthesia Assessment: - Prior to the procedure, a History and Physical was performed, and patient medications and allergies were reviewed. The patient is competent. The risks and benefits of the procedure and the sedation options and risks were discussed with the patient. All questions were answered and informed consent was obtained. Patient identification and proposed procedure were verified by the physician in the pre-procedure area. Mental Status Examination: alert and oriented. Airway Examination: normal oropharyngeal airway and neck mobility. Respiratory Examination: clear to auscultation. CV Examination: normal. Prophylactic Antibiotics: The patient does not require prophylactic antibiotics. Prior Anticoagulants: The patient has taken no anticoagulant or antiplatelet agents. ASA Grade Assessment: II - A patient with mild systemic disease. After reviewing the risks and benefits, the patient was deemed in satisfactory condition to undergo the procedure. The anesthesia plan was to use monitored anesthesia care (MAC). Immediately prior to administration of medications, the patient was re-assessed for adequacy to receive sedatives. The heart rate, respiratory rate, oxygen saturations, blood pressure, adequacy of pulmonary ventilation, and response to care were monitored throughout the procedure. The physical status of the patient was re-assessed after the procedure. After obtaining informed consent, the endoscope was passed under direct vision. Throughout the procedure, the patient's blood pressure, pulse, and oxygen saturations were monitored continuously. The Colonoscope was introduced through the mouth, and advanced to the second part of duodenum. The upper GI endoscopy was accomplished without difficulty. The patient tolerated the procedure well. Scope In: 9:21:06 AM Scope Out: 9:23:58 AM Total Procedure Duration Time 0 hours 2 minutes 52 seconds Findings: The examined esophagus was normal. Patchy mildly erythematous mucosa without bleeding was found in the gastric body. Biopsies were taken with a cold forceps for histology. Verification of patient identification for the specimen was done. Estimated blood loss was minimal. Biopsies were taken with a cold forceps for Helicobacter pylori testing. Verification of patient identification for the specimen was done. Estimated blood loss was minimal. Diffuse moderately erythematous mucosa without active bleeding and with no stigmata of bleeding was found in the duodenal bulb, in the first portion of the duodenum and in the second portion of the duodenum. Biopsies were taken with a cold forceps for histology. Verification of patient identification for the specimen was done. Estimated blood loss was minimal. Impression: - Normal esophagus. - Erythematous mucosa in the gastric body. Biopsied. - Erythematous duodenopathy. Biopsied. Recommendation: - Discharge patient to home. - Resume previous diet. - Continue present medications. - Await pathology results. Procedure Code(s): --- Professional --- 12659, Esophagogastroduodenoscopy, flexible, transoral; with biopsy, single or multiple CPT copyright 2021 [employer]. All rights reserved. The codes documented in this report are preliminary and upon television host review may be revised to meet current compliance requirements. Logan Mehta DO 07/15/2023 9:37:57 AM This report has been signed electronically. Number of Addenda: 0 Note Initiated On: 07/15/2023 9:15 AM
--- NOTE | 2023-07-15 09:38 | OP.CCLET_ITS ---
07/15/2023 Anant Curran [address] [place] [address] Re : Upper GI endoscopy procedure for Kaya Vera Dear Dr. Curran This procedure was performed on June. My impressions and recommendations are as follows: Impressions : - Normal esophagus. - Erythematous mucosa in the gastric body. Biopsied. - Erythematous duodenopathy. Biopsied. Recommendations : - Discharge patient to home. - Resume previous diet. - Continue present medications. - Await pathology results. My findings are described in the full procedure note, which is enclosed. If I can be of further assistance, please feel free to contact me at . Sincerely, Logan Mehta, 07/15/2023 9:37:57 AM This report has been signed electronically.
--- NOTE | 2023-07-15 09:41 | OP.COLON_ITS ---
Patient Name: Kaya Vera Procedure Date: 07/15/2023 9:24 AM Date of : 1985 Age: 37 Procedure: Colonoscopy Indications: Generalized abdominal pain, Clinically significant diarrhea of unexplained origin Providers: Logan Mehta DO Referring MD: Anant Curran Medicines: Monitored Anesthesia Care Patient Profile: This is a 37 year old female. Refer to note in patient chart for documentation of history and physical. Patient has symptoms of acute epigastric abdominal pain and chronic epigastric abdominal pain. Last Colonoscopy: date unknown. Unable to locate last colonoscopy report. Complications: No immediate complications. Procedure: Pre-Anesthesia Assessment: - Prior to the procedure, a History and Physical was performed, and patient medications and allergies were reviewed. The patient is competent. The risks and benefits of the procedure and the sedation options and risks were discussed with the patient. All questions were answered and informed consent was obtained. Patient identification and proposed procedure were verified by the physician in the pre-procedure area. Mental Status Examination: alert and oriented. Airway Examination: normal oropharyngeal airway and neck mobility. Respiratory Examination: clear to auscultation. CV Examination: normal. Prophylactic Antibiotics: The patient does not require prophylactic antibiotics. Prior Anticoagulants: The patient has taken no anticoagulant or antiplatelet agents. ASA Grade Assessment: II - A patient with mild systemic disease. After reviewing the risks and benefits, the patient was deemed in satisfactory condition to undergo the procedure. The anesthesia plan was to use monitored anesthesia care (MAC). Immediately prior to administration of medications, the patient was re-assessed for adequacy to receive sedatives. The heart rate, respiratory rate, oxygen saturations, blood pressure, adequacy of pulmonary ventilation, and response to care were monitored throughout the procedure. The physical status of the patient was re-assessed after the procedure. After I obtained informed consent, the scope was passed under direct vision. Throughout the procedure, the patient's blood pressure, pulse, and oxygen saturations were monitored continuously. The Colonoscope was introduced through the anus and advanced to the cecum, identified by appendiceal orifice and ileocecal valve. The ileocecal valve, appendiceal orifice, and rectum were photographed. Scope In: 9:25:41 AM Scope Withdrawal Time 0 hours 6 minutes 21 seconds Scope Out: 9:33:14 AM Total Procedure Duration Time 0 hours 7 minutes 33 seconds Findings: Hemorrhoids were found on perianal exam. An area of mildly friable mucosa with no bleeding was found in the rectum, in the sigmoid colon and in the transverse colon. Biopsies were taken with a cold forceps for histology. Verification of patient identification for the specimen was done. Estimated blood loss was minimal. The terminal ileum appeared normal. Biopsies were taken with a cold forceps for histology. Verification of patient identification for the specimen was done. Estimated blood loss was minimal. Impression: - Hemorrhoids found on perianal exam. - Friability with no bleeding in the rectum, in the sigmoid colon and in the transverse colon. Biopsied. - The examined portion of the ileum was normal. Biopsied. Recommendation: - Discharge patient to home. - Resume previous diet. - Continue present medications. - Await pathology results. - Repeat colonoscopy for surveillance based on pathology results. Procedure Code(s): --- Professional --- 85465, Colonoscopy, flexible; with biopsy, single or multiple CPT copyright 2021 [employer]. All rights reserved. The codes documented in this report are preliminary and upon icd 9 coder review may be revised to meet current compliance requirements. Logan Mehta DO 07/15/2023 9:40:23 AM This report has been signed electronically. Number of Addenda: 0 Note Initiated On: 07/15/2023 9:24 AM
--- NOTE | 2023-07-15 09:41 | OP.CCLET_ITS ---
07/15/2023 Anant Curran [address] [place] [address] Re : Colonoscopy procedure for Kaya Vera Dear Dr. Curran This procedure was performed on June. My impressions and recommendations are as follows: Impressions : - Hemorrhoids found on perianal exam. - Friability with no bleeding in the rectum, in the sigmoid colon and in the transverse colon. Biopsied. - The examined portion of the ileum was normal. Biopsied. Recommendations : - Discharge patient to home. - Resume previous diet. - Continue present medications. - Await pathology results. - Repeat colonoscopy for surveillance based on pathology results. My findings are described in the full procedure note, which is enclosed. If I can be of further assistance, please feel free to contact me at . Sincerely, Logan Mehta, 07/15/2023 9:40:23 AM This report has been signed electronically.
== END 2023-07-15 11:40 | disposition home or self-care (01) ==
LOC: EN 07:46 → AC 07:47
PROVIDERS: PCP Family Medicine; Referring Provider Family Medicine; Visit Provider Internal Medicine Gastroenterology
PROC: 0DJD8ZZ Inspection of Lower Intestinal Tract, Via Natural or Artificial Opening Endoscopic (ICD-10-PCS; CPT 45378; principal; 2023-07-15 08:40)
DX: R10.13 Epigastric pain (principal); R10.84 Generalized abdominal pain; K64.4 Residual hemorrhoidal skin tags; K52.9 Noninfective gastroenteritis and colitis, unspecified; K29.70 Gastritis, unspecified, without bleeding; Z79.899 Other long term (current) drug therapy; K21.9 Gastro-esophageal reflux disease without esophagitis
CPT/HCPCS: 45380; 43239; 88305; 88342; J7120; J2405

== ENCOUNTER → 2023-07-29 | Outpatient (CLI) | payer MEDICAID, SELFPAY ==
--- NOTE | 2023-07-29 13:49 | ECHOD_ITS ---
Reason For Study: Dyspnea Procedure This was a 2D Doppler, Color Flow transthoracic echocardiogram. Exam performed in department. Left Ventricle Normal LV size. Left ventricular systolic function is normal. The estimated ejection fraction is 60 %. No regional wall motion abnormalities noted. Right Ventricle Normal RV size. Normal systolic function. Atria Normal left atrium. Normal right atrium. Mitral Valve Normal mitral valve. Tricuspid Valve Normal tricuspid valve. Mild tricuspid valve insufficiency. Pulmonary artery systolic pressure is 20 mmHg. Aortic Valve Normal aortic valve. Pulmonic Valve Normal pulmonic valve. Great Vessels Normal aortic root. The pulmonary artery is normal size. Normal inferior vena cava. Pericardium/Pleural No pericardial effusion. MMode/2D Measurements & Calculations LVIDd: 4.6 cm IVSd: 1.00 cm Ao root diam: 2.4 cm LVIDs: 2.9 cm LVPWd: 0.84 cm LA dimension: 3.3 cm RVDd: 3.2 cm FS: 36.5 % LAV(MOD-bp): 36.7 ml LA A4 area: 14.8 cm2 RA A4 area: 13.2 cm2 LAV(MOD-bp) Indexed: 19.4 ml/m2 LAV(MOD-sp2): 37.4 ml LAV(MOD-sp4): 32.8 ml TAPSE: 1.6 cm Time Measurements MV dec time: 0.14 sec Doppler Measurements & Calculations MV E max jitendra: 83.0 cm/sec Lat Peak E' Jitendra: 21.8 cm/sec Med Peak E' Jitendra: 10.9 cm/sec MV A max jitendra: 78.5 cm/sec E/E' lat: 3.8 E/E' med: 7.6 MV E/A: 1.1 MV V2 max: 99.0 cm/sec MV P1/2t max jitendra: 99.0 cm/sec Ao V2 max: 138.9 cm/sec MV max P.9 mmHg MV P1/2t: 50.3 msec Ao max P.7 mmHg MV V2 mean: 51.2 cm/sec Ao V2 mean: 91.7 cm/sec MV mean P.3 mmHg MV dec slope: 576.0 cm/sec2 Ao mean P.0 mmHg MV V2 VTI: 22.8 cm MVA(P1/2t): 4.4 cm2 Ao V2 VTI: 29.4 cm AV (velocity ratio): 0.86 LV V1 max: 117.3 cm/sec PA V2 max: 102.8 cm/sec TR max jitendra: 206.1 cm/sec LV V1 max P.5 mmHg PA V2 mean: 73.1 cm/sec TR max P.0 mmHg LV V1 mean P.0 mmHg LV V1 mean: 80.8 cm/sec LV V1 VTI: 25.3 cm ECHO/Echo Complete Interpretation Summary Normal LV size. Left ventricular systolic function is normal. The estimated ejection fraction is 60 %. Structurally normal valves. Ordering Physician: Travis Estes Referring Physician: Anant Curran Performed By: Ramon Barahona RCS
== END | disposition home or self-care (01) ==
LOC: CVS 13:47
PROVIDERS: PCP Family Medicine; Referring Provider Nurse Practitioner Family; Visit Provider Nurse Practitioner Family
DX: R06.09 Other forms of dyspnea (principal); R00.0 Tachycardia, unspecified; I49.8 Other specified cardiac arrhythmias
CPT/HCPCS: 93306

== ENCOUNTER → 2023-10-19 | Outpatient (CLI) | payer MEDICAID, SELFPAY | END | disposition home or self-care (01) | LOC: LABSPEC 14:38 | PROVIDERS: PCP Family Medicine; Referring Provider Family Medicine; Visit Provider Family Medicine | DX: R10.9 Unspecified abdominal pain (principal); R31.9 Hematuria, unspecified | CPT/HCPCS: 87086 ==

== ENCOUNTER → 2023-10-28 | Outpatient (CLI) | payer MEDICAID, SELFPAY ==
[2023-10-28 17:50] LABS: Absolute Lymphocyte Count 2.56 X10^3/uL (0.83-4.51); Absolute Neutrophil Count 4.5 X10^3/uL (2.0-7.7); Basophil# 0.02 X10^3/uL; Basophil% 0.3 % (0-1); Eosinophil# 0.19 X10^3/uL; Eosinophils% 2.5 % (0-5); Hemoglobin 12.9 g/dL (12.0-15.0); Lymphocyte # 2.56 X10^3/ul (0.83-4.51); Lymphocyte % 33.5 % (19-41); Mean Corp Hgb Conc 32.3 g/dL (32-36); Mean Corpuscular Hgb 27.6 pg (27.0-32.0); Mean Corpuscular Volume 85.7 fL (81-99); Mean Platelet Vol. 9.2 fl (6.2-12.0); Monocyte# 0.35 X10^3/uL; Monocyte% 4.6 % (0-10); NRBC Flagged by Analyzer 0 % (0-5); Neutrophil # 4.51 X10^3/uL (2.7-7.7); Neutrophil % 58.8 % (47-70); Platelet Count 324 K/mm3 (150-450); RBC Distribution Width CV 12.8 % (11.6-14.6); RBC Distribution Width SD 39.8 fl (35.1-43.9); Red Blood Count 4.67 M/mm3 (4.2-5.4); White Blood Count 7.7 K/mm3 (4.4-11.0)
[2023-10-28 18:12] LABS: Erythrocyte Sedimentation Rate 5 mm/hr (0-30)
== END | disposition home or self-care (01) ==
LOC: MTLAB 15:30
PROVIDERS: PCP Family Medicine; Referring Provider Student in an Organized Health Care Education/Training Program; Visit Provider Student in an Organized Health Care Education/Training Program
DX: R10.9 Unspecified abdominal pain (principal)
CPT/HCPCS: 36415; 85025; 85652; 86140

== ENCOUNTER → 2023-11-08 | Outpatient (CLI) | payer MEDICAID, SELFPAY ==
--- NOTE | 2023-11-08 10:38 | RAD_ITS ---
EXAM: XR LEFT HIP WITH PELVIS WHEN PERFORMED, 2 OR 3 VIEWS CLINICAL INDICATION: GROIN PAIN TECHNIQUE: Two or three views of the left hip with pelvis when performed. COMPARISON: CT abdomen and pelvis, 06/17/2023 FINDINGS: BONES/JOINTS: No significant abnormality. No displaced fracture. No destructive or sclerotic lesions. Note that overlapping bowel shadows may however obscure fine detail. Sacroiliac joint is unremarkable. No widening of the pubic symphysis. The articular structures are unremarkable. SOFT TISSUES: No significant abnormality. No soft tissue swelling or gas. RAD/HIP, UNI W/ Pelvis 2-3 Views IMPRESSION: No evidence of displaced pelvic or hip fracture. Electronically Signed: Stef Hernandez DO at 22:14 EDT ,
[2023-11-11 14:11] LABS: Calprotectin, Stool 34 ug/g (0-120)
== END | disposition home or self-care (01) ==
PROVIDERS: Student in an Organized Health Care Education/Training Program; PCP Family Medicine; Referring Provider Family Medicine; Visit Provider Family Medicine
DX: M25.552 Pain in left hip (principal); R10.30 Lower abdominal pain, unspecified; K58.9 Irritable bowel syndrome, unspecified
CPT/HCPCS: 73502; 83630; 83993; 87177; 87209; 87329; 87506

== ENCOUNTER → 2023-11-19 | Outpatient (CLI) | payer MEDICAID, SELFPAY ==
--- NOTE | 2023-11-19 | CALC_PTH ---
PATIENT: YAA ARCE LOC: [facility] U#:[id number] AGE/SX: 38/F ROOM: RE11/19/[address]: Dr. Anant Curran DO : 1985 BED: DIS: 11/19/2023 SPEC #: [id number] RECD: 11/19/23 13:24 STATUS: GWEN KHUSHBOO #: [id number] JENIFFER: 11/19/23 00:[address]: Anant Curran DEPT: SURGICAL PATHOLOGY RECD BY: Cynthia Krause Tissues: CALCULI Procedures: Surgery Specimen Level I HEADER OPERATION: Renal stone analysis PRE-OP DIAGNOSIS: Urinary calculus, unspecified TISSUE SUBMITTED: Urinary calculi GROSS DIAGNOSIS A fragment of stone, clinically kidney stone (gross only). 11/19/2023 COMMENT The calculus is submitted in its entirety for chemical stone analysis. The results from this study will be reported separately. GROSS DESCRIPTION Received without fixative labeled with the patient's name and designated left ureteral calculi. The specimen consists of a fragment of brownish-black stone measuring 0.4 x 0.3 x 0.3 cm. The entire specimen is submitted for stone analysis. 11/19/2023 CPT: 04252
[2023-11-22 15:08] LABS: ACCA 54 units (0-90); ALCA 27 units (0-60); AMCA 165 units (0-100); gASCA 33 units (0-50)
[2023-12-06 15:23] LABS: Ca Oxalate, Monohydrate 100 % (.); Size 3x5 mm (.); Source Kidney (.)
== END | disposition home or self-care (01) ==
LOC: LAB 09:07 → LABSPEC 09:08
PROVIDERS: Internal Medicine Gastroenterology; PCP Family Medicine; Referring Provider Family Medicine; Visit Provider Family Medicine
DX: N20.2 Calculus of kidney with calculus of ureter (principal)
CPT/HCPCS: 36415; 82360; 83516; 86036; 86671; 88300

== ENCOUNTER → 2023-11-26 | Outpatient (CLI) | payer MEDICAID, SELFPAY ==
--- NOTE | 2023-11-26 08:33 | RAD_ITS ---
STUDY: X-RAY CHEST REASON FOR EXAM: Female, 38 years old. Capsule endoscopy TECHNIQUE: Single AP portable view of the chest. COMPARISON: Comparison is made with prior study dated March 13, 2023. FINDINGS: EKG electrodes are seen. The lungs are clear and expanded. Scattered calcified granulomas. There is no demonstrated pleural abnormality. Normal size heart. Normal mediastinum and jim. Normal visualized pulmonary arteries. Normal visualized aortic arch and descending thoracic aorta. Normal visualized thoracic spine. Normal visualized ribs, clavicles, and shoulders. There is no demonstrated abnormality of the visualized soft tissue structures of the upper abdomen. RAD/Chest 1 View IMPRESSION: No acute abnormality is seen. Electronically Signed: Darrel Dunbar MD at 8:45 EDT ,
== END | disposition home or self-care (01) ==
LOC: RAD 08:17
PROVIDERS: PCP Family Medicine; Referring Provider Internal Medicine Gastroenterology; Visit Provider Internal Medicine Gastroenterology
DX: R11.0 Nausea (principal); R07.9 Chest pain, unspecified
CPT/HCPCS: 71045

== ENCOUNTER 2023-12-17 05:02 | Emergency (ER) | payer OTHER, SELFPAY ==
[2023-12-17 05:02] VITALS: BP 133/80; PULSE 75; RESP 19; TEMP 37.2; O2SAT 100; BMI 34.3
--- NOTE | 2023-12-17 05:30 | CT_ITS ---
STUDY: CT ABDOMEN AND PELVIS WITH CONTRAST REASON FOR EXAM: Female, 38 years old. abd pain RADIATION DOSAGE (If Supplied By Facility): CTDIvol = ( 18.96 ) mGy, DLP = ( 1083.07 ) mGycm TECHNIQUE: IV 100mL Isovue-370 was administered. Transaxial images were obtained from the dome of the diaphragm to the symphysis pubis in the portal venous phase. Multiplanar coronal and sagittal images were reformatted. Individualized Dose Optimization Techniques Were Used For This CT. COMPARISON: Prior study dated: 06/17/2023 FINDINGS: LOWER CHEST: Lung bases are clear. No cardiomegaly or pericardial effusion. LIVER: The liver is enlarged measuring 22 cm in cc dimension. The liver is normal in shape with decreased attenuation. No focal mass. GALLBLADDER AND BILIARY TREE: Gallbladder not seen. No intra- or extrahepatic biliary ductal dilation. PANCREAS: No focal cystic or solid mass. SPLEEN: Normal size without focal cystic or solid mass. ADRENAL GLANDS: No nodules. KIDNEYS AND URETERS: Normal renal size and position. No hydronephrosis. Left midpole 0.3 cm calculus. PERITONEUM: No ascites or free air. No other fluid collection. BOWEL: The stomach is unremarkable. Normal caliber small bowel. There is no obstruction. No colonic wall thickening or inflammation. Mild stool burden throughout the right hemicolon. No evidence of acute appendicitis. LYMPH NODES: No enlarged mesenteric or retroperitoneal lymph nodes. VESSELS: Aorta is non-dilated. URINARY BLADDER: Unremarkable. REPRODUCTIVE ORGANS: No pelvic masses. ABDOMINAL WALL: No discrete abdominal or pelvic wall hernia. BONES: No lytic or blastic abnormality. CT/Abdomen/Pelvis W IV Cont ONLY IMPRESSION: No acute finding. Nonobstructing left midpole tiny renal calculus. Mild colonic stool burden. Hepatic steatosis with hepatomegaly. Electronically Signed: Crow Wilder MD at 6:49 EDT ,
[2023-12-17 05:40] LABS: Absolute Lymphocyte Count 4.49 X10^3/uL (0.83-4.51); Absolute Neutrophil Count 9.7 X10^3/uL (2.0-7.7); Basophil# 0.03 X10^3/uL; Basophil% 0.2 % (0-1); Eosinophil# 0.03 X10^3/uL; Eosinophils% 0.2 % (0-5); Hematocrit 41.2 % (37-47); Hemoglobin 13.3 g/dL (12.0-15.0); Lymphocyte # 4.49 X10^3/ul (0.83-4.51); Lymphocyte % 29.6 % (19-41); Mean Corp Hgb Conc 32.3 g/dL (32-36); Mean Corpuscular Hgb 27.5 pg (27.0-32.0); Mean Corpuscular Volume 85.3 fL (81-99); Mean Platelet Vol. 9.1 fl (6.2-12.0); Monocyte# 0.81 X10^3/uL; Monocyte% 5.3 % (0-10); NRBC Flagged by Analyzer 0 % (0-5); Neutrophil # 9.72 X10^3/uL (2.7-7.7); Neutrophil % 64.2 % (47-70); Platelet Count 305 K/mm3 (150-450); RBC Distribution Width CV 13.1 % (11.6-14.6); RBC Distribution Width SD 40.5 fl (35.1-43.9); Red Blood Count 4.83 M/mm3 (4.2-5.4); White Blood Count 15.2 K/mm3 (4.4-11.0)
[2023-12-17 05:50] LABS: Bacteria 0 SEEN /hpf (None Seen); Mucous, Urine 0 SEEN /hpf (<or=2+); Red Blood Cells-Urine 0 SEEN /hpf (0-5); White Blood Cells 0 SEEN /hpf (0-5)
[2023-12-17 05:51] LABS: Color, Urine Yellow (Yellow); Glucose, Dipstick Normal (Normal); Ketone-Dipstick Negative (Negative); Leukocyte Esterase-Dipstick Negative /ul (Negative); Nitrite-Dipstick Negative (Negative); Occult Blood-Urine 10 /ul (Negative); Protein-Dipstick Negative (Negative); Urine Bilirubin Dipstick Negative (Negative); Urine Clarity Clear (Clear); Urine Urobilinogen Normal (Normal)
[2023-12-17] MEDS: 0.9% Normal Saline (1000mL) 1,000 ML 999 ML IV (05:51)
[2023-12-17] MEDS: Ondansetron 4 MG/2 ML Vial IV (05:52)
[2023-12-17] MEDS: Morphine 4 MG/ML Syringe IV (05:52)
[2023-12-17] MEDS: Pantoprazole Sodium 40 MG in 0.9% Normal Saline (100mL MB+) 100 ML 330 MG IV (05:53)
[2023-12-17 06:08] LABS: AST(SGOT) 10 U/L (15-37); Alanine Aminotransfer ALT/SGPT 27 U/L (13-56); Albumin, Serum 3.5 g/dL (3.2-5.0); Alkaline Phosphatase 70 U/L (45-117); Anion Gap 5 (5-15); BUN 14 mg/dL (7-18); BUN/Creat Ratio 17.6 RATIO (10-20); Chloride 106 mmol/L (98-107); Creatinine, Serum 0.79 mg/dL (0.55-1.02); EST Glomerular Filtration Rate 85 mL/min (>60); Est Glom Filt Rate - Afr Amer 103 mL/min (>60); Estimated Creatinine Clearance 99.59 ml/min; Globulin 3.9 g/dL (2.2-4.2); Glucose 104 mg/dL (74-106); Lipase 46 U/L (13-75); Potassium 3.4 mmol/L (3.5-5.1); Protein, Total 7.4 g/dL (6.4-8.2); Sodium Level 137 mmol/L (136-145)
[2023-12-17 06:17] LABS: Squamous Epithelial Cells - UA 0-5 SEEN /hpf (5-10)
[2023-12-17 06:33] LABS: Lactic Acid 1.5 mmol/L (0.4-1.9)
[2023-12-17 07:07] VITALS: BP 118/79; PULSE 77; RESP 19; TEMP 36.6; O2SAT 97
--- NOTE | 2023-12-17 07:08 | EDS_ITS ---
HPI History of Present Illness Chief Complaint: Abd Pain Informant: patient Narrative Narrative: Patient is a 38-year-old female with longstanding history of intestinal problems. She has endometriosis that invaded the colon she has had a previous cholecystectomy she is being worked up by gastroenterology for inflammatory bowel disorder and states that she typically has abdominal pain daily. She states that she was recently started on dexamethasone and after 1 to 2 days of this felt significant improvement of her abdominal pain. She states that on ' her family does a uatsdin dinner. She states that she was at this and after eating part of a chicken sandwich developed increasing upper mid abdominal discomfort. She states that she feels like she needs to vomit but cannot do so. She states she is taken her home medications but there is been no resolution of her abdominal pain and therefore she comes in for evaluation. [facility] Medical History (Updated 12/17/23 @ 07:[address] Serge Santos, ) Lupus Rheumatoid arthritis Interstitial cystitis History of DVT (deep vein thrombosis) Injury of head and neck History of diverticulitis History of Crohn's disease Shortness of breath on exertion History of edema History of stress test History of echocardiogram Cardiology follow-up encounter History of atrial fibrillation Ovarian cancer Left leg paresthesias Lumbar strain Kidney stones Medullary sponge kidney of both kidneys Kidney disease Acute maxillary sinusitis, unspecified Diarrhea History of Lyme disease Reflux involving intestinal tract POTS (postural orthostatic tachycardia syndrome) Wears glasses Anemia Rash History of steroid therapy History of fatty infiltration of liver Non-smoker Leg cramps Edema Irregular heart beat Migraine headache Restless legs Back pain Syncope Ectopic cardiac beats Sinus tachycardia Symptomatic bradycardia lysis of adensions (~09/2019) Hepatic steatosis Acid reflux Asthma Sleep apnea Anxiety Hypertension Arthritis History of back problems h/o lesion removal Fatigue Endometriosis Ovarian cyst Hematochezia PCOS (polycystic ovarian syndrome) Ankylosing spondylitis Exercise-induced asthma Mitral regurgitation Tachycardia Prolapse of intestine Diverticulosis Hemorrhoids Anal fissure Home Medications ?Medication ?Instructions ?Recorded ?Last Taken ?Type multivitamin 1 tab PO DAILY 12/13/17 09/17/18 History albuterol sulfate 90 mcg/actuation 1 - 2 puff inhalation Q6H PRN PRN 10/19/19 Unknown History aerosol inhaler Asthma potassium chloride 20 mEq 20 meq PO DAILY 08/06/20 Unknown History tablet,extended release pantoprazole 40 mg tablet,delayed 40 mg PO DAILY gerd 05/19/21 Unknown History release cetirizine 10 mg tablet (Zyrtec) 10 mg PO DAILY PRN allergies 11/10/21 Unknown History atenolol 25 mg tablet 25 mg PO DAILY 06/28/23 07/15/23 05:30 History sucralfate 100 mg/mL oral 10 ml PO QACHS 06/28/23 Unknown History suspension ondansetron 4 mg disintegrating 4 mg PO Q8H PRN nausea and 10/22/23 Unknown Rx tablet vomiting #90 tabs budesonide 3 mg 6 mg (2 x 3 mg) PO QAM 30 days #60 12/09/23 Unknown Rx capsule,delayed,extended release ea colestipol 1 gram tablet 2 g (2 x 1 gram) PO HS #60 tabs 12/09/23 Unknown Rx oxycodone-acetaminophen 5 mg-325 1 tab PO Q6H PRN pain 3 days #12 12/17/23 Unknown Rx mg tablet (Percocet) tabs sucralfate 100 mg/mL oral 10 ml PO TID #1,000 mL 12/17/23 Unknown Rx suspension (Carafate) Allergy/AdvReac Type Severity Reaction Status Date / Time cephalexin monohydrate (From Allergy Severe Anaphylaxis Verified 12/17/23 05:02 Keflex) cyclobenzaprine (From Allergy Severe Mental Verified 12/17/23 05:02 Flexeril) status change latex Allergy Mild Swelling Verified 12/17/23 05:02 eucalyptus AdvReac Severe tachycardia, Verified 12/17/23 05:02 close airway NSAIDS (Non-Steroidal AdvReac Severe GI upset Verified 12/17/23 05:02 Anti-Inflamma tamsulosin (From Flomax) AdvReac Severe Low BP/HR Verified 12/17/23 05:02 tizanidine AdvReac Severe Low HR Verified 12/17/23 05:02 ciprofloxacin (From Cipro) AdvReac diarrhea, Verified 12/17/23 05:02 nausea, tachycardia doxycycline AdvReac Diarrhea Verified 12/17/23 05:02 Family History Mother Heart disease Hypertension Father Heart disease Diabetes Hypertension Surgical History (Updated 07/12/23 @ 16:30 by Virgen Garcia) History of surgery History of hysterectomy History of cholecystectomy H/O cystoscopy (~09/2019) H/O dilation and curettage (~09/2019) Hx laparoscopic cholecystectomy (~09/2019) Hx of removal of ovary History of hernia repair History of Social History Smoking Status: Never smoker Electronic Cigarette Use: not used second hand exposure: No alcohol intake: never substance use type: does not use caffeine: No what type of physical activity do you participate in: walking frequency: 5-6 times per week seatbelt use: always do you feel safe at home: Yes additional social history: Single- Currently unemployed ROS ROS ED Constitutional Constitutional ED: Denies chills or fever(s) Eyes Eyes: Denies blurry vision, change in vision or diplopia ENT ENT ED: Denies sore throat Cardiovascular Cardiovascular: Denies chest pain, palpitations or racing heartbeat Respiratory/Chest Respiratory/Chest: Denies cough or dyspnea Gastrointestinal Gastrointestinal: Reports abdominal pain and nausea; Denies constipation, diarrhea or vomiting Genitourinary Genitourinary ED: Reports urinary frequency; Denies dysuria or hematuria Musculoskeletal Musculoskeletal: Denies myalgias Integumentary Denies rash Neurologic Neurologic: Denies headache(s), paresthesias or weakness Hematologic/Lymphatic Hematologic/Lymphatic: Denies easy bleeding or easy bruising EXAM Physical Exam Const Vital Signs: 12/17/23 05:02 12/17/23 07:07 Temperature 98.9 F 98 F Temperature Source Oral Pulse Rate 75 77 Respiratory Rate 19 H 19 H Blood Pressure 133/80 H 118/79 Blood Pressure Mean 97 92 Pulse Ox 100 97 Oxygen Delivery Method Room Air Positive well nourished and well developed General Appearance ED: well developed; Negative for pallor HEENT Reports dry mucous membranes HEENT Narrative: Mucous membranes are dry and tacky However no tongue or lip swelling no oral lesions no airway edema or compromise No secondary findings in the posterior pharynx to suggest infection Mouth ED: Yes dry mucous membranes Mouth: dry mucous membranes Eyes PERRL and EOMs intact bilaterally General Eye ED: Negative for scleral icterus Neck supple Resp normal respiratory effort and clear to auscultation bilaterally Cardio regular rate and regular rhythm Rate: other Other Details: Heart is regular rate and rhythm without murmurs rubs or gallops Radial and carotid pulses are equal and symmetric GI non-distended and no masses GI Narrative: Abdomen is soft and nondistended with normal active bowel sounds. There is mild pain with palpation in the midepigastric and left upper quadrant region without voluntary guarding or rigidity. No pulsatile mass or fluid wave Auscultation: normoactive bowel sounds Palpation: soft Extremity normal to inspection Extremity Narrative: No asymmetric edema no pitting edema negative Homans' sign bilaterally Neuro oriented x3, CN's II-XII intact bilaterally and no sensory deficits noted Sensorium / Orientation: alert Motor Exam: strength 5/5 throughout Psych Mood & Affect: anxious Skin no rashes or lesions noted General Skin Exam: Negative for jaundice or pallor MDM MDM MDM Narrative Medical decision making narrative: Patient presented to the ER with stable vitals and reported a longstanding history of abdominal discomfort. However she stated since using the dexamethasone she had great improvement of her pain but now it is since returned. She reports that she had hernia surgery when she was younger and her gallbladder removed a few years ago and has concern for potential bowel obstruction. She is followed by gastroenterology and has had previous EGDs as well as a recent capsule endoscopy. I did review that report and it suggest changes consistent with inflammatory bowel disorder but otherwise no acute finding. At this time there is concern patient could have UTI as she reports increased urinary frequency versus small bowel obstruction as she has had increased pain with nausea versus pancreatitis or even kidney stone. The patient's white count is elevated but she has been on dexamethasone which would cause the elevation. Otherwise there is no lactic acidosis going against a potential severe infection or ischemic finding. Lipase is normal going against pancreatitis. She has no signs of LYNDSAY or urinary tract infection. CT scan was obtained to check for potential small bowel obstruction versus pancreatitis versus intestinal abscess or abdominal perforation. CT scan revealed no clinically significant findings. Therefore at this time as vitals are stable and workup reveals no clinically significant findings either within laboratory values or on imaging study patient can follow-up with her family doctor and/or gastroenterology to discuss further testing or treatment options and is otherwis e safe for discharge History & Record Review Discussion w/independent historian: Patient Lab Data Attestation: I reviewed the patient's lab results. Labs: Laboratory Results - last 24 hr 12/17/23 12/17/23 12/17/23 05:16 05:41 05:45 WBC 15.2 H RBC 4.83 Hgb 13.3 Hct 41.2 MCV 85.3 MCH 27.5 MCHC 32.3 RDW Std Deviation 40.5 RDW Coeff of Karon 13.1 Plt Count 305 MPV 9.1 Immature Gran % (Auto) 0.500 Neut % (Auto) 64.2 Lymph % (Auto) 29.6 Pettis % (Auto) 5.3 Eos % (Auto) 0.2 Baso % (Auto) 0.2 Absolute Neuts (auto) 9.7 H Absolute Lymphs (auto) 4.49 Nucleated RBC % 0 Sodium 137 Potassium 3.4 L Chloride 106 Carbon Dioxide 26.0 Anion Gap 5 BUN 14 Creatinine 0.79 Estim Creat Clear Calc 99.59 Est GFR (MDRD) Af Amer 103 Est GFR (MDRD) Non-Af 85 BUN/Creatinine Ratio 17.6 Glucose 104 Lactic Acid 1.5 Calcium 9.0 Total Bilirubin 0.20 Direct Bilirubin 0.10 AST 10 L ALT 27 Alkaline Phosphatase 70 Total Protein 7.4 Albumin 3.5 Globulin 3.9 Lipase 46 Urine Color Yellow Urine Clarity Clear Urine pH 7.0 Ur Specific [place] 1.010 Urine Protein Negative Urine Glucose (UA) Normal Urine Ketones Negative Urine Occult Blood 10 H Urine Nitrite Negative Urine Bilirubin Negative Urine Urobilinogen Normal Ur Leukocyte Esterase Negative Urine RBC 0 SEEN Urine WBC 0 SEEN Ur Squamous Epith Cells 0-5 SEEN Urine Bacteria 0 SEEN Urine Mucus 0 SEEN Radiography Diagnostic Testing: Clinical Impression(s) from Imaging Studies Abdomen/Pelvis CT 12/17/23 05:30 IMPRESSION: No acute finding. Nonobstructing left midpole tiny renal calculus. Mild colonic stool burden. Hepatic steatosis with hepatomegaly. Electronically Signed: Crow Wilder MD at 6:49 EDT , Discharge Plan Triage Chief Complaint: Abd Pain ED Provider: Serge Santos Dx/Rx/DC Orders Clinical Impression: Nonspecific abdominal pain, Endometriosis, Inflammatory bowel syndrome Instructions: Abdominal Pain Prescriptions: New oxycodone-acetaminophen [Percocet] 5-325 mg tablet 1 tab PO Q6H PRN (Reason: pain) 3 Days Qty: 12 0RF sucralfate [Carafate] 100 mg/mL suspension 10 ml PO TID Qty: 1000 0RF No Action multivitamin tablet 1 tab PO DAILY cetirizine [Zyrtec] 10 mg tablet 10 mg PO DAILY PRN (Reason: allergies) atenolol 25 mg tablet 25 mg PO DAILY Rx Instructions: Takes BID if BP or HR are elevated potassium chloride 20 mEq tablet extended release 20 meq PO DAILY sucralfate 100 mg/mL suspension 10 ml PO QACHS albuterol sulfate 1 INHALER inhaler 1 - 2 puff INHALATION Q6H PRN PRN (Reason: Asthma) pantoprazole 40 mg tablet,delayed release (DR/EC) 40 mg PO DAILY Rx Instructions: TAKE 1 TABLET BY MOUTH EVERY DAY ondansetron 4 mg tablet,disintegrating 4 mg PO Q8H PRN (Reason: nausea and vomiting) Qty: 90 1RF budesonide 3 mg capsule,delayed,extend.release 6 mg PO QAM 30 Days Qty: 60 1RF colestipol 1 gram tablet 2 g PO HS Qty: 60 1RF Primary Care Provider: Anant Curran Referrals: Anant Curran DO [Primary Care Provider] - Activity Restrictions/Additional Instructions: Please follow-up with your family doctor and/or rubber down for repeat evaluation and return to the ER should you have any further concerns Print Language: [place]an Disposition Disposition: Home, Self Care Discharge Date/Time: 12/17/23 07:24
== END 2023-12-17 07:24 | disposition home or self-care (01) ==
PROVIDERS: Emergency Provider Emergency Medicine; PCP Family Medicine; Visit Provider Emergency Medicine
DX: R10.9 Unspecified abdominal pain (principal); Z90.49 Acquired absence of other specified parts of digestive tract; I10 Essential (primary) hypertension; N80.9 Endometriosis, unspecified; Z87.19 Personal history of other diseases of the digestive system; K52.9 Noninfective gastroenteritis and colitis, unspecified
CPT/HCPCS: 74177; 80048; 80076; 81001; 83605; 83690; 85025; 96365; 96375; 99282; Q9967; J2405

== ENCOUNTER → 2023-12-31 | Outpatient (CLI) | payer OTHER, SELFPAY ==
--- NOTE | 2023-12-31 09:30 | MRI_ITS ---
MR Enterography Abdomen/Pelvis WO/W Contrast 12/31/2023 10:45 AM COMPARISON: None available. CLINICAL HISTORY: R19.7 - Diarrhea, unspecified, EPIGASTRIC PAIN, DIFFICULTY EATING TECHNIQUE: Following oral administration of enteric contrast and administration of glucagon, multiplanar T1 and T2 weighted images along with dynamic post-gadolinium images were obtained through the abdomen and pelvis. FINDINGS: GI Tract: There is suboptimal dilatation of the bowel. There is mild wall thickening and mucosal hyperenhancement of the terminal ileum and few short segments of distal ileum. No stricture, fistula, or obstruction. No drainable fluid collections. Liver: Unremarkable Gallbladder: Unremarkable Spleen: Unremarkable Pancreas: Unremarkable Adrenal Glands: Unremarkable Kidneys: Unremarkable Bladder: Unremarkable Reproductive: Unremarkable Lymphadenopathy: Absent Ascites: Absent Bones: No suspicious lesions MRI/Enterography Abd/Pel IMPRESSION: Suboptimal dilatation of the bowel limits this examination. Despite limitations: Findings could represent infectious versus inflammatory enteritis, such as Chron''s disease. No stricture, fistula, or obstruction. No drainable fluid collections. Electronically Signed: Maximiliano Khan MD at 1:20 EDT ,
[2023-12-31 09:59] VITALS: BP 129/72; PULSE 73; RESP 18; TEMP 36.6; O2SAT 98; BMI 33.6
[2023-12-31] MEDS: 0.9% Saline Lock 10 ML Syringe IV ×2 (09:59→11:05)
[2023-12-31] MEDS: Glucagon 1 MG/ML Syringe IV (11:05)
[2023-12-31 11:21] VITALS: BP 125/70; PULSE 75; RESP 18; TEMP 36.6; O2SAT 99
== END | disposition home or self-care (01) ==
PROVIDERS: PCP Family Medicine; Referring Provider Internal Medicine Gastroenterology; Visit Provider Internal Medicine Gastroenterology
DX: R19.7 Diarrhea, unspecified (principal)
CPT/HCPCS: 74183; 96374; A9575; J1610

== ENCOUNTER → 2024-01-13 | Outpatient (CLI) | payer OTHER, SELFPAY ==
[2024-01-15 10:08] LABS: HEPATITIS B SURFACE AG Negative (Negative); Hep C Antibodies Non Reactive (Non Reactive); Hepatitis A IgM Antibody Negative (Negative); Hepatitis B Core AB IgM Negative (Negative); QNTFERON TB Mitogen Value > 10.00 IU/mL (.); QNTFERON TB Nil Value 0.01 IU/mL (.); QNTFERON TB1+ Ag Value 0.01 IU/mL (.); QNTFERON TB2+ Ag Value 0.02 IU/mL (.); QNTIFERON TB Positive Criteria Negative (Negative)
== END | disposition home or self-care (01) ==
LOC: LAB 15:20
PROVIDERS: PCP Family Medicine; Referring Provider Internal Medicine Gastroenterology; Visit Provider Internal Medicine Gastroenterology
DX: K92.2 Gastrointestinal hemorrhage, unspecified (principal)
CPT/HCPCS: 36415; 80074; 86480

== ENCOUNTER → 2024-03-03 | Outpatient (CLI) | payer OTHER, SELFPAY | END | disposition home or self-care (01) | LOC: MTLAB 13:15 | PROVIDERS: PCP Family Medicine; Referring Provider Family Medicine; Visit Provider Family Medicine | DX: R30.0 Dysuria (principal) | CPT/HCPCS: 87086 ==

== ENCOUNTER → 2024-04-18 | Outpatient (CLI) | payer OTHER, SELFPAY ==
[2024-04-18 16:10] LABS: Absolute Neutrophil Count 4.1 X10^3/uL (2.0-7.7); Basophil# 0.04 X10^3/uL; Basophil% 0.5 % (0-1); Eosinophil# 0.15 X10^3/uL; Eosinophils% 1.8 % (0-5); Hematocrit 39.6 % (37-47); Hemoglobin 13.2 g/dL (12.0-15.0); Mean Corp Hgb Conc 33.3 g/dL (32-36); Mean Corpuscular Hgb 28.1 pg (27.0-32.0); Mean Corpuscular Volume 84.4 fL (81-99); Mean Platelet Vol. 8.9 fl (6.2-12.0); Monocyte# 0.48 X10^3/uL; Monocyte% 5.8 % (0-10); NRBC Flagged by Analyzer 0 % (0-5); Neutrophil # 4.14 X10^3/uL (2.7-7.7); Neutrophil % 49.5 % (47-70); Platelet Count 296 K/mm3 (150-450); RBC Distribution Width CV 12.8 % (11.6-14.6); RBC Distribution Width SD 38.9 fl (35.1-43.9); Red Blood Count 4.69 M/mm3 (4.2-5.4); White Blood Count 8.3 K/mm3 (4.4-11.0)
[2024-04-18 16:43] LABS: ALB/GLOB Ratio 0.9 RATIO (0.9-2.4); AST(SGOT) 16 U/L (15-37); Alanine Aminotransfer ALT/SGPT 25 U/L (13-56); Albumin, Serum 3.7 g/dL (3.2-5.0); Alkaline Phosphatase 80 U/L (45-117); Anion Gap 8 (5-15); BUN 10 mg/dL (7-18); BUN/Creat Ratio 11.6 RATIO (10-20); CRP 8.45 mg/L (0.0-3.0); Calcium,Total 9.4 mg/dL (8.5-10.1); Chloride 106 mmol/L (98-107); Creatinine, Serum 0.86 mg/dL (0.55-1.02); EST Glomerular Filtration Rate 77 mL/min (>60); Est Glom Filt Rate - Afr Amer 93 mL/min (>60); Globulin 4.2 g/dL (2.2-4.2); Glucose 116 mg/dL (74-106); Potassium 3.7 mmol/L (3.5-5.1); Protein, Total 7.9 g/dL (6.4-8.2); Sodium Level 138 mmol/L (136-145)
== END | disposition home or self-care (01) ==
PROVIDERS: Nurse Practitioner Acute Care; PCP Family Medicine; Referring Provider Internal Medicine Cardiovascular Disease; Visit Provider Internal Medicine Cardiovascular Disease
DX: R79.82 Elevated C-reactive protein (CRP) (principal); K50.90 Crohn's disease, unspecified, without complications
CPT/HCPCS: 36415; 80053; 85025; 86140

== ENCOUNTER → 2024-04-27 | Outpatient (CLI) | payer OTHER, SELFPAY ==
[2024-04-27 15:09] LABS: Color, Urine Yellow (Yellow); Glucose, Dipstick Normal (Normal); Ketone-Dipstick Negative (Negative); Leukocyte Esterase-Dipstick Negative /ul (Negative); Nitrite-Dipstick Negative (Negative); Occult Blood-Urine Negative /ul (Negative); Protein-Dipstick Negative (Negative); Urine Bilirubin Dipstick Negative (Negative); Urine Clarity Clear (Clear); Urine Urobilinogen Normal (Normal); Urine pH 6.5 (5.0 - 8.0)
== END | disposition home or self-care (01) ==
PROVIDERS: PCP Family Medicine; Referring Provider Family Medicine; Visit Provider Family Medicine
DX: R10.9 Unspecified abdominal pain (principal)
CPT/HCPCS: 81002; 87086; 87088

== ENCOUNTER → 2024-05-29 | Outpatient (CLI) | payer OTHER, SELFPAY ==
[2024-05-29 16:26] LABS: Absolute Lymphocyte Count 3.51 X10^3/uL (0.83-4.51); Absolute Neutrophil Count 4.8 X10^3/uL (2.0-7.7); Basophil# 0.04 X10^3/uL; Basophil% 0.4 % (0-1); Eosinophil# 0.14 X10^3/uL; Eosinophils% 1.5 % (0-5); Hemoglobin 12.7 g/dL (12.0-15.0); Lymphocyte # 3.51 X10^3/ul (0.83-4.51); Lymphocyte % 38.5 % (19-41); Mean Corp Hgb Conc 32.6 g/dL (32-36); Mean Corpuscular Volume 86.1 fL (81-99); Mean Platelet Vol. 9.2 fl (6.2-12.0); Monocyte# 0.57 X10^3/uL; Monocyte% 6.3 % (0-10); NRBC Flagged by Analyzer 0 % (0-5); Neutrophil # 4.82 X10^3/uL (2.7-7.7); Platelet Count 312 K/mm3 (150-450); RBC Distribution Width CV 12.9 % (11.6-14.6); RBC Distribution Width SD 40.3 fl (35.1-43.9); Red Blood Count 4.53 M/mm3 (4.2-5.4); White Blood Count 9.1 K/mm3 (4.4-11.0)
[2024-05-29 21:34] LABS: CRP 4.04 mg/L (0.0-3.0)
[2024-05-29 23:52] LABS: ALB/GLOB Ratio 1.3 RATIO (0.9-2.4); AST(SGOT) 24 U/L (<=31); Alanine Aminotransfer ALT/SGPT 26 U/L (<=34); Albumin, Serum 4.2 g/dL (3.5-5.0); Alkaline Phosphatase 71 U/L (35-104); BUN 10 mg/dL (4-19); BUN/Creat Ratio 13.4 RATIO (10-20); Creatinine, Serum 0.75 mg/dL (0.70-1.20); EST Glomerular Filtration Rate 102 (>60); Globulin 3.2 g/dL (2.2-4.2); Glucose 98 mg/dL (70-99); Protein, Total 7.4 g/dL (5.9-8.4); Total Bilirubin < 0.15 mg/dL (0.00-1.30)
[2024-05-30 01:58] LABS: Anion Gap 17 (5-15); Calcium,Total 9.8 mg/dL (7.6-11.0); Carbon Dioxide 21.4 mmol/L (21.0-32.0); Chloride 103 mmol/L (98-108); Potassium 3.8 mmol/L (3.3-5.1); Sodium Level 141 mmol/L (133-145)
[2024-05-31 07:07] LABS: Hepatitis B Core Ab Total Negative (Negative)
== END | disposition home or self-care (01) ==
LOC: LAB 15:30
PROVIDERS: PCP Family Medicine; Referring Provider Nurse Practitioner Acute Care; Visit Provider Nurse Practitioner Acute Care
DX: K50.90 Crohn's disease, unspecified, without complications (principal); K50.011 Crohn's disease of small intestine with rectal bleeding; R11.2 Nausea with vomiting, unspecified; R19.7 Diarrhea, unspecified; R42 Dizziness and giddiness; R10.84 Generalized abdominal pain
CPT/HCPCS: 36415; 80053; 85025; 86140; 86704

== ENCOUNTER 2024-05-30 17:13 | Emergency (ER) | payer OTHER, SELFPAY ==
[2024-05-30 17:14] VITALS: BP 139/94; PULSE 90; RESP 18; TEMP 36.4; O2SAT 100; BMI 33.3
[2024-05-30 18:09] LABS: Absolute Lymphocyte Count 3.96 X10^3/uL (0.83-4.51); Absolute Neutrophil Count 4.5 X10^3/uL (2.0-7.7); Basophil# 0.05 X10^3/uL; Basophil% 0.6 % (0-1); Eosinophil# 0.18 X10^3/uL; Hematocrit 39.6 % (37-47); Hemoglobin 13.2 g/dL (12.0-15.0); Lymphocyte # 3.96 X10^3/ul (0.83-4.51); Lymphocyte % 43.8 % (19-41); Mean Corp Hgb Conc 33.3 g/dL (32-36); Mean Corpuscular Hgb 28.3 pg (27.0-32.0); Monocyte% 4.4 % (0-10); NRBC Flagged by Analyzer 0 % (0-5); Neutrophil # 4.45 X10^3/uL (2.7-7.7); Neutrophil % 49.1 % (47-70); Platelet Count 313 K/mm3 (150-450); RBC Distribution Width CV 12.9 % (11.6-14.6); RBC Distribution Width SD 39.8 fl (35.1-43.9); Red Blood Count 4.66 M/mm3 (4.2-5.4); White Blood Count 9.1 K/mm3 (4.4-11.0)
[2024-05-30 18:20] LABS: Mucous, Urine 0 SEEN /hpf (<or=2+)
[2024-05-30 18:26] LABS: Color, Urine Yellow (Yellow); Glucose, Dipstick Normal (Normal); Ketone-Dipstick Negative (Negative); Leukocyte Esterase-Dipstick Negative /ul (Negative); Nitrite-Dipstick Negative (Negative); Occult Blood-Urine 10 /ul (Negative); Protein-Dipstick Negative (Negative); Urine Bilirubin Dipstick Negative (Negative); Urine Clarity Clear (Clear); Urine Urobilinogen Normal (Normal)
[2024-05-30 18:51] LABS: Bacteria 2+ /hpf (None Seen); Red Blood Cells-Urine 0-5 SEEN /hpf (0-5); Squamous Epithelial Cells - UA 0-5 SEEN /hpf (5-10); White Blood Cells 0-5 SEEN /hpf (0-5)
[2024-05-30 18:52] LABS: Yeast-Urine 1+ /hpf (None Seen)
[2024-05-30 19:13] VITALS: BP 133/82; PULSE 78; RESP 12; TEMP 37.1; O2SAT 98
[2024-05-30 19:14] LABS: ALB/GLOB Ratio 1.3 RATIO (0.9-2.4); AST(SGOT) 24 U/L (<=31); Alanine Aminotransfer ALT/SGPT 27 U/L (<=34); Albumin, Serum 4.5 g/dL (3.5-5.0); Alkaline Phosphatase 80 U/L (35-104); Anion Gap 12 (5-15); BUN 10 mg/dL (4-19); BUN/Creat Ratio 13.8 RATIO (10-20); Calcium,Total 9.6 mg/dL (7.6-11.0); Carbon Dioxide 25.1 mmol/L (21.0-32.0); Chloride 101 mmol/L (98-108); Creatinine, Serum 0.73 mg/dL (0.70-1.20); EST Glomerular Filtration Rate 106 (>60); Estimated Creatinine Clearance 106.15 ml/min (50-250); Globulin 3.5 g/dL (2.2-4.2); Glucose 99 mg/dL (70-99); Potassium 3.8 mmol/L (3.3-5.1); Sodium Level 139 mmol/L (133-145); Total Bilirubin 0.29 mg/dL (0.00-1.30)
--- NOTE | 2024-05-30 20:26 | CT_ITS ---
PROCEDURE: ABDOMEN/PELVIS WITHOUT CONT TECHNIQUE: Abdomen and pelvis CT with intravenous contrast. No oral contrast. IV CONTRAST: None COMPARISON: None. FINDINGS: Lung bases: Clear Liver: Unremarkable. Gallbladder: Surgically absent Spleen: Unremarkable. Pancreas: Unremarkable. Adrenals: Unremarkable. Kidneys: Multiple tiny bilateral nonobstructing renal calculi. No evidence of hydronephrosis. Bladder: Unremarkable. Reproductive Organs: Prior hysterectomy. Adnexal regions are unremarkable. Bowel: Unremarkable. Appendix: Normal. Lymph nodes: No suspicious lymph node enlargement. Vasculature: Major vascular structures are unremarkable. Peritoneum / Retroperitoneum: No ascites. No free air. Bones: Unremarkable. CT/Abdomen/Pelvis without Cont IMPRESSION: Multiple tiny bilateral nonobstructing renal calculi. No evidence of hydroneph rosis. No inflammatory changes of the bowel loops are demonstrated. One or more dose reduction techniques were used (e.g., Automated exposure contr ol, adjustment of the mA and/or kV according to patient size, use of iterative reconstruction technique). Reading Location: [facility]
--- NOTE | 2024-05-30 20:27 | EX.ED.DYSGE1 ---
HPI History of Present Illness Chief Complaint: Flank Pain Informant: patient Onset/Context/Timing Onset: Month(s) (1) Context: Gradual Onset Timing: Continuous Quality: Stabbing Location: Left flank Worsened by: Nothing Relieved by: Nothing Narrative Narrative: Patient presents with left flank pain that has been getting worse over the past month. Patient states she has not been eating or drinking much because of the pain. Patient states she has had some nausea and vomiting. Patient admits to some urinary frequency but denies any dysuria or hematuria. Patient admits to a fever of 102 at home. Patient states nothing makes her pain better and nothing makes it worse. Patient also admits to a headache. Patient denies any shortness of breath or cough. [facility] Medical History Abdominal pain Lupus Rheumatoid arthritis Interstitial cystitis History of DVT (deep vein thrombosis) Injury of head and neck History of diverticulitis History of Crohn's disease Shortness of breath on exertion History of edema History of stress test History of echocardiogram Cardiology follow-up encounter History of atrial fibrillation Ovarian cancer Left leg paresthesias Lumbar strain Kidney stones Medullary sponge kidney of both kidneys Kidney disease Acute maxillary sinusitis, unspecified Diarrhea History of Lyme disease Reflux involving intestinal tract POTS (postural orthostatic tachycardia syndrome) Wears glasses Anemia History of steroid therapy History of fatty infiltration of liver Non-smoker Leg cramps Edema Irregular heart beat Migraine headache Restless legs Back pain Syncope Ectopic cardiac beats Sinus tachycardia Symptomatic bradycardia lysis of adensions (~09/2019) Hepatic steatosis Acid reflux Asthma Sleep apnea Anxiety Hypertension Arthritis History of back problems h/o lesion removal Fatigue Endometriosis Ovarian cyst Hematochezia PCOS (polycystic ovarian syndrome) Ankylosing spondylitis Exercise-induced asthma Mitral regurgitation Tachycardia Prolapse of intestine Diverticulosis Hemorrhoids Anal fissure Home Medications ?Medication ?Instructions ?Recorded ?Last Taken ?Type multivitamin 1 tab PO DAILY 12/13/17 09/17/18 History albuterol sulfate 90 mcg/actuation 1 - 2 puff inhalation Q6H PRN PRN 10/19/19 Unknown History aerosol inhaler Asthma potassium chloride 20 mEq 20 meq PO DAILY 08/06/20 Unknown History tablet,extended release ondansetron 4 mg disintegrating 4 mg PO Q8H PRN nausea and 10/22/23 Unknown Rx tablet vomiting #90 tabs atenolol 25 mg tablet 25 mg PO DAILY #90 tabs 04/04/24 Unknown Rx adalimumab 40 mg/0.4 mL 40 mg (0.4 mL) subcut Q2W crohn's 04/05/24 Unknown Rx subcutaneous pen kit (Pete(CF) #2 ea Pen) ondansetron HCl 4 mg tablet 4 mg PO .COMPLEX #5 tabs 05/29/24 Unknown Rx pantoprazole 40 mg tablet,delayed 40 mg PO QDAY #90 tabs 05/29/24 Unknown Rx release hydrocodone-acetaminophen 5-325mg 1 tab PO Q6H PRN PRN Pain 3 days 05/30/24 Unknown Rx 5mg-325mg #10 TABLETS Allergy/AdvReac Type Severity Reaction Status Date / Time cephalexin monohydrate (From Allergy Severe Anaphylaxis Verified 05/30/24 17:13 Keflex) cyclobenzaprine (From Allergy Severe Mental Verified 05/30/24 17:13 Flexeril) status change latex Allergy Mild Swelling Verified 05/30/24 17:13 eucalyptus AdvReac Severe tachycardia, Verified 05/30/24 17:13 close airway NSAIDS (Non-Steroidal AdvReac Severe GI upset Verified 05/30/24 17:13 Anti-Inflamma tamsulosin (From Flomax) AdvReac Severe Low BP/HR Verified 05/30/24 17:13 tizanidine AdvReac Severe Low HR Verified 05/30/24 17:13 ciprofloxacin (From Cipro) AdvReac diarrhea, Verified 05/30/24 17:13 nausea, tachycardia Family History Mother Heart disease Hypertension Father Heart disease Diabetes Hypertension Surgical History History of surgery History of hysterectomy History of cholecystectomy H/O cystoscopy (~09/2019) H/O dilation and curettage (~09/2019) Hx laparoscopic cholecystectomy (~09/2019) Hx of removal of ovary History of hernia repair History of Social History Smoking Status: Never smoker Electronic Cigarette Use: not used second hand exposure: No alcohol intake: never substance use type: does not use caffeine: No what type of physical activity do you participate in: walking frequency: 5-6 times per week seatbelt use: always do you feel safe at home: Yes additional social history: Single- Currently unemployed ROS ROS ED Constitutional Constitutional ED: Reports fever(s); Denies chills Eyes Eyes: Denies blurry vision or change in vision ENT ENT ED: Denies rhinorrhea or sore throat Cardiovascular Cardiovascular: Denies chest pain or palpitations Respiratory/Chest Respiratory/Chest: Denies cough or dyspnea Gastrointestinal Gastrointestinal: Reports nausea and vomiting Genitourinary Genitourinary ED: Reports urinary frequency; Denies dysuria or hematuria Musculoskeletal Musculoskeletal: Reports back pain; Denies neck pain Integumentary Denies abscess or rash Neurologic Neurologic: Reports headache(s); Denies weakness Allergic/Immunologic Allergic/Immunologic ED: Denies mouth swelling or urticaria EXAM Physical Exam Const Vital Signs: 05/30/24 17:14 05/30/24 19:13 05/30/24 21:00 Temperature 97.5 F L 98.7 F Temperature Source Temporal Oral Pulse Rate 90 78 90 Respiratory Rate 18 12 16 Blood Pressure 139/94 H 133/82 H 133/80 H Blood Pressure Mean 109 99 97 Pulse Ox 100 98 98 Oxygen Delivery Method Room Air Room Air Room Air Positive well nourished and well developed General Appearance ED: well developed and NAD HEENT Reports moist mucous membranes Neck supple and no JVD Resp normal respiratory effort and clear to auscultation bilaterally Cardio regular rate and regular rhythm GI non-tender and non-distended Palpation: soft Back/Spine General Back: CVA tenderness left Neuro oriented x3, CN's II-XII intact bilaterally and no sensory deficits noted Sensorium / Orientation: alert Motor Exam: strength 5/5 throughout Psych mental status grossly normal MDM MDM MDM Narrative Medical decision making narrative: Differential diagnosis includes ureteral calculus, pyelonephritis, electrolyte abnormality, and dehydration. CBC will be obtained to assess for leukocytosis and anemia. Comprehensive metabolic profile will be obtained to assess for hepatic function, renal function, and electrolyte abnormality. Urinalysis will be obtained to assess for urinary tract infection and hematuria. CT scan of the abdomen and pelvis will be obtained to assess for ureteral calculus and pyelonephritis. Lab Data Attestation: I reviewed the patient's lab results. Lab results narrative: CBC was reviewed and was within normal limits. Comprehensive metabolic profile was reviewed and was within normal limits. Urinalysis was reviewed. Occult blood was obtained. There are 0-5 red blood cells and 0-5 white blood cells. There is 1+ yeast noted. Labs: Laboratory Results - last 24 hr 05/30/24 05/30/24 17:51 18:09 WBC 9.1 RBC 4.66 Hgb 13.2 Hct 39.6 MCV 85.0 MCH 28.3 MCHC 33.3 RDW Std Deviation 39.8 RDW Coeff of Karon 12.9 Plt Count 313 MPV 9.0 Immature Gran % (Auto) 0.100 Neut % (Auto) 49.1 Lymph % (Auto) 43.8 H [place] % (Auto) 4.4 Eos % (Auto) 2.0 Baso % (Auto) 0.6 Absolute Neuts (auto) 4.5 Absolute Lymphs (auto) 3.96 Nucleated RBC % 0 Sodium 139 Potassium 3.8 Chloride 101 Carbon Dioxide 25.1 Anion Gap 12 BUN 10 Creatinine 0.73 Estim Creat Clear Calc 106.15 Est GFR (MDRD) Non-Af 106 BUN/Creatinine Ratio 13.8 Glucose 99 Calcium 9.6 Total Bilirubin 0.29 AST 24 ALT 27 Alkaline Phosphatase 80 Total Protein 8.0 Albumin 4.5 Globulin 3.5 Albumin/Globulin Ratio 1.3 Urine Color Yellow Urine Clarity Clear Urine pH 6.0 Ur Specific [place] 1.010 Urine Protein Negative Urine Glucose (UA) Normal Urine Ketones Negative Urine Occult Blood 10 H Urine Nitrite Negative Urine Bilirubin Negative Urine Urobilinogen Normal Ur Leukocyte Esterase Negative Urine RBC 0-5 SEEN Urine WBC 0-5 SEEN Ur Squamous Epith Cells 0-5 SEEN Urine Bacteria 2+ Urine Mucus 0 SEEN Urine Yeast 1+ Radiography Diagnostic Testing: Clinical Impression(s) from Imaging Studies Abdomen/Pelvis CT 05/30/24 20:26 IMPRESSION: Multiple tiny bilateral nonobstructing renal calculi. No evidence of hydronephrosis. No inflammatory changes of the bowel loops are demonstrated. One or more dose reduction techniques were used (e.g., Automated exposure control, adjustment of the mA and/or kV according to patient size, use of iterative reconstruction technique). Reading [facility] scan of the abdomen and pelvis was obtained. There are multiple nonobstructing renal calculi. There is no evidence of hydronephrosis. There is no ureteral calculus noted. There is no acute inflammatory changes of the bowel loops. There is no free air or free fluid. There is no evidence of bowel obstruction. This was interpreted by the radiologist was also independently reviewed by myself Treatment and Re-Evaluation :: Patient was given IV fluids and Zofran. Patient was given a dose of morphine. Patient was advised of her findings. Patient was given a dose of Diflucan for the 1+ yeast in her urine. Patient was instructed to follow-up with her primary care physician in 5 to 7 days. Patient was also instructed to follow-up with her oncologist. Patient understood and was agreeable with the plan. All questions were answered. Discharge Plan Triage Chief Complaint: Flank Pain ED Provider: Stewart Edmonds Dx/Rx/DC Orders Clinical Impression: Acute left flank pain, Vaginal candidiasis Instructions: ED Flank Pain, Uncertain Cause Prescriptions: New hydrocodone-acetaminophen 5-325 mg tablet 1 tab PO Q6H PRN PRN (Reason: Pain) 3 Days Qty: 10 0RF No Action multivitamin tablet 1 tab PO DAILY potassium chloride 20 mEq tablet extended release 20 meq PO DAILY atenolol 25 mg tablet 25 mg PO DAILY Qty: 90 3RF Rx Instructions: Takes BID if BP or HR are elevated Humira(CF) Pen 40 mg/0.4 mL pen injector kit 40 mg subcut Q2W Qty: 2 1RF pantoprazole 40 mg tablet,delayed release (DR/EC) 40 mg PO QDAY Qty: 90 1RF Rx Instructions: take 30 minutes before breakfast every day ondansetron HCl 4 mg tablet 4 mg PO .COMPLEX Qty: 5 0RF Rx Instructions: 4 mg orally; take two tablets PO two hours prior to start of bowel prep and one every 4 hours as needed for N/V albuterol sulfate 1 INHALER inhaler 1 - 2 puff INHALATION Q6H PRN PRN (Reason: Asthma) ondansetron 4 mg tablet,disintegrating 4 mg PO Q8H PRN (Reason: nausea and vomiting) Qty: 90 1RF Primary Care Provider: Anant Curran Referrals: Anant Curran DO [Primary Care Provider] - 5-7 Days Print Language: Estonian Disposition Disposition: Home, Self Care
[2024-05-30] MEDS: 0.9% Normal Saline (1000mL) 1,000 ML 1000 ML IV (20:44)
[2024-05-30] MEDS: Ondansetron 4 MG/2 ML Vial IV (20:44)
[2024-05-30 21:00] VITALS: BP 133/80; PULSE 90; RESP 16; O2SAT 98
[2024-05-30] MEDS: Morphine 4 MG/ML Syringe IV (22:06)
[2024-05-30] MEDS: FLUCONAZOLE 150 MG TABLET PO (22:44)
[2024-05-30 22:47] VITALS: BP 125/82; PULSE 96; RESP 18; TEMP 36.8; O2SAT 98
== END 2024-05-30 22:48 | disposition home or self-care (01) ==
PROVIDERS: Emergency Provider Emergency Medicine; PCP Family Medicine; Visit Provider Emergency Medicine
DX: R10.9 Unspecified abdominal pain (principal); B37.31 Acute candidiasis of vulva and vagina; I10 Essential (primary) hypertension; R35.0 Frequency of micturition; R50.9 Fever, unspecified; R51.9 Headache, unspecified; K21.9 Gastro-esophageal reflux disease without esophagitis; N20.0 Calculus of kidney
CPT/HCPCS: 74176; 80053; 81001; 85025; 96361; 96374; 96375; 99283; A4216; J2405

== ENCOUNTER → 2024-06-05 | Outpatient (CLI) | payer OTHER, SELFPAY ==
[2024-06-09 03:07] LABS: Calprotectin, Stool 11 ug/g (0-120)
== END | disposition home or self-care (01) ==
LOC: LAB 15:12
PROVIDERS: PCP Family Medicine; Referring Provider Nurse Practitioner Acute Care; Visit Provider Nurse Practitioner Acute Care
DX: R79.82 Elevated C-reactive protein (CRP) (principal); K50.90 Crohn's disease, unspecified, without complications; R11.2 Nausea with vomiting, unspecified; R19.7 Diarrhea, unspecified; R42 Dizziness and giddiness
CPT/HCPCS: 83993; 87493

== ENCOUNTER 2024-06-08 14:13 | Outpatient (CLI) | payer OTHER, SELFPAY ==
[2024-06-08] MEDS: proMETHazine 25 MG/ML Syringe IM (14:46)
[2024-06-08] MEDS: 0.9% Normal Saline (1000mL) 1,000 ML 999 ML IV (14:48)
[2024-06-08] MEDS: 0.9% NaCl Peripheral Flush Adult IV (14:49)
[2024-06-08 14:50] VITALS: BP 138/79; PULSE 100; RESP 16; TEMP 36.3; O2SAT 98; BMI 32.9
[2024-06-08 15:36] LABS: ALB/GLOB Ratio 1.4 RATIO (0.9-2.4); AST(SGOT) 28 U/L (<=31); Alanine Aminotransfer ALT/SGPT 29 U/L (<=34); Albumin, Serum 4.1 g/dL (3.5-5.0); Alkaline Phosphatase 71 U/L (35-104); Anion Gap 12 (5-15); BUN 6 mg/dL (4-19); BUN/Creat Ratio 9.9 RATIO (10-20); Calcium,Total 9.1 mg/dL (7.6-11.0); Carbon Dioxide 22.7 mmol/L (21.0-32.0); Chloride 102 mmol/L (98-108); Creatinine, Serum 0.66 mg/dL (0.70-1.20); EST Glomerular Filtration Rate 114 (>60); Globulin 3.1 g/dL (2.2-4.2); Glucose 92 mg/dL (70-99); Magnesium 2.1 mg/dL (1.5-2.2); Phosphorus 2.6 mg/dL (2.7-4.5); Potassium 3.8 mmol/L (3.3-5.1); Protein, Total 7.2 g/dL (5.9-8.4); Sodium Level 137 mmol/L (133-145); Total Bilirubin 0.32 mg/dL (0.00-1.30)
[2024-06-08 15:38] LABS: PTHIN 42 pg/mL (11-61)
[2024-06-08 15:56] VITALS: BP 133/73; PULSE 78; RESP 16; TEMP 36.4; O2SAT 100
[2024-06-08 16:38] LABS: Urine Chloride 44 mmol/L (Not Establ.); Urine Sodium 46 mmol/L (Not Establ.)
[2024-06-08 19:39] LABS: 24Hr.Lytes Total Volume 1650 mL; Sodium 24 HR UR 76 mmol/24h (40-220); Urine Chloride / 24 Hours 73 mmol/24h (110-250); Urine Potassium/ 24 Hours 42.9 mmol/24h (25-125)
[2024-06-10 23:48] LABS: 24HR UR TOTAL VOLUME 1650 ml; Calcium Urine pH Range 1
[2024-06-11 00:15] LABS: (24 HR) Urine Calcium 79.2 mg/24 HR (42.0-353.0); Urine Calcium (Random) 4.8 mg/dL (Not Estab.)
[2024-06-12 13:07] LABS: Anti-dsDNA Ab <1 IU/mL (0-9); Smith Ab <0.2 AI (0.0-0.9)
[2024-06-14 07:07] LABS: Citric Acid, 24Ur 7 mg/24 hr (320-1240); Citric Acid, Ur 4 mg/L (Undefined); Uric Acid, 24Ur 476.9 mg/24 hr (173.7-902.1); Uric Acid, Ur 28.9 mg/dL (Not Estab.)
== END 2024-06-08 23:59 | disposition home or self-care (01) ==
PROVIDERS: Nurse Practitioner Acute Care; Urology; PCP Family Medicine; Referring Provider Family Medicine; Visit Provider Family Medicine
DX: E86.0 Dehydration (principal); R11.2 Nausea with vomiting, unspecified; N20.0 Calculus of kidney; R76.8 Other specified abnormal immunological findings in serum
CPT/HCPCS: 96360; 36415; 80053; 81050; 82340; 82436; 82507; 83735; 83970; 84100; 84133; 84300; 84560; 86225; 86235; 96372; A4216

== ENCOUNTER → 2024-06-27 | Outpatient (CLI) | payer OTHER, SELFPAY ==
--- NOTE | 2024-06-27 | US_ITS ---
PROCEDURE: PELVIC W/ TRANSVAGINAL N/A REASON FOR EXAM: MALIGNANT, NEOPLASM OF LEFT OVERY Follow-up for left adnexal cyst. TECHNIQUE: Transabdominal pelvic ultrasound FINDINGS: Measurements: The patient is status post hysterectomy. Right Ovary: 2.7 cm x 3 cm x 2.2 cm. Left Ovary: The patient is status post left oophorectomy. Right ovary: Unremarkable Left ovary: Status post left oophorectomy. Other: US/Pelvic (Non ) IMPRESSION: Status post hysterectomy and left oophorectomy. No adnexal cyst is seen. Reading Location: [id number]
== END | disposition home or self-care (01) ==
LOC: US 12:58
PROVIDERS: PCP Family Medicine
DX: C56.2 Malignant neoplasm of left ovary (principal)
CPT/HCPCS: 76856

== ENCOUNTER 2024-07-16 19:21 | Emergency (ER) | payer OTHER, SELFPAY ==
[2024-07-16 19:22] VITALS: BP 131/77; PULSE 93; RESP 18; TEMP 36.8; O2SAT 99; BMI 33.9
[2024-07-16 19:25] VITALS: BP 131/97; PULSE 84; RESP 25; TEMP 36.6; O2SAT 98
--- NOTE | 2024-07-16 19:35 | ED.VIS.DYS ---
HPI History of Present Illness Chief Complaint: Shortness of Breath Informant: patient Onset/Context/Timing Onset: Days (2 days ago) Context: gradual Timing: Continuous Quality: Positive for Dyspnea on exertion and Wheezing Worsened by: Nothing Relieved by: Albuterol Associated Symptoms cough, fever and green sputum; Negative for rhinorrhea, post nasal drip, ear pain, sore throat, chills, clear sputum, white sputum or yellow sputum Chest Pain: Positive for Pressure and Tightness Narrative Narrative: Patient presents with shortness of breath that has been getting worse over the past 2 to 3 days. Patient states it is gradually getting worse. Patient states it is constant. Patient states her son was diagnosed with pneumonia. Patient states that her primary care physician prescribed her a Z-Simeon. Patient states she had no improvement with this. Patient states she coughs up some green sputum occasionally. Patient states she has some pain over her left lower chest under her left breast. Patient describes it as a squeezing and pressure. Patient admits to intermittent fevers. Patient states they have been up to 103 at home. Patient states she took Tylenol and ibuprofen approximately 2 hours prior to arrival. [facility] Medical History Abdominal pain Lupus Rheumatoid arthritis Interstitial cystitis History of DVT (deep vein thrombosis) Injury of head and neck History of diverticulitis History of Crohn's disease Shortness of breath on exertion History of edema History of stress test History of echocardiogram Cardiology follow-up encounter History of atrial fibrillation Ovarian cancer Left leg paresthesias Lumbar strain Kidney stones Medullary sponge kidney of both kidneys Kidney disease Acute maxillary sinusitis, unspecified Diarrhea History of Lyme disease Reflux involving intestinal tract POTS (postural orthostatic tachycardia syndrome) Wears glasses Anemia History of steroid therapy History of fatty infiltration of liver Non-smoker Leg cramps Edema Irregular heart beat Migraine headache Restless legs Back pain Syncope Ectopic cardiac beats Sinus tachycardia Symptomatic bradycardia lysis of adensions (~09/2019) Hepatic steatosis Acid reflux Asthma Sleep apnea Anxiety Hypertension Arthritis History of back problems h/o lesion removal Fatigue Endometriosis Ovarian cyst Hematochezia PCOS (polycystic ovarian syndrome) Ankylosing spondylitis Exercise-induced asthma Mitral regurgitation Tachycardia Prolapse of intestine Diverticulosis Hemorrhoids Anal fissure Home Medications ?Medication ?Instructions ?Recorded ?Last Taken ?Type multivitamin 1 tab PO DAILY 12/13/17 09/17/18 History albuterol sulfate 90 mcg/actuation 1 - 2 puff inhalation Q6H PRN PRN 10/19/19 Unknown History aerosol inhaler Asthma potassium chloride 20 mEq 20 meq PO DAILY 08/06/20 Unknown History tablet,extended release ondansetron 4 mg disintegrating 4 mg PO Q8H PRN nausea and 10/22/23 Unknown Rx tablet vomiting #90 tabs atenolol 25 mg tablet 25 mg PO DAILY #90 tabs 04/04/24 Unknown Rx pantoprazole 40 mg tablet,delayed 40 mg PO QDAY #90 tabs 05/29/24 Unknown Rx release Hydrocortisone 2.5% / Lidocaine 5% #30 grams 07/03/24 Unknown Rx ointment (cmpd) adalimumab 40 mg/0.4 mL 40 mg (0.4 mL) subcut Q2W crohn's 07/04/24 Unknown Rx subcutaneous pen kit (Humira(CF) #4 ea Pen) Allergy/AdvReac Type Severity Reaction Status Date / Time cephalexin monohydrate (From Allergy Severe Anaphylaxis Verified 07/16/24 19:25 Keflex) cyclobenzaprine (From Allergy Severe Mental Verified 07/16/24 19:25 Flexeril) status change latex Allergy Mild Swelling Verified 07/16/24 19:25 eucalyptus AdvReac Severe tachycardia, Verified 07/16/24 19:25 close airway NSAIDS (Non-Steroidal AdvReac Severe GI upset Verified 07/16/24 19:25 Anti-Inflamma tamsulosin (From Flomax) AdvReac Severe Low BP/HR Verified 07/16/24 19:25 tizanidine AdvReac Severe Low HR Verified 07/16/24 19:25 ciprofloxacin (From Cipro) AdvReac diarrhea, Verified 07/16/24 19:25 nausea, tachycardia Family History Mother Heart disease Hypertension Father Heart disease Diabetes Hypertension Surgical History History of surgery History of hysterectomy History of cholecystectomy H/O cystoscopy (~09/2019) H/O dilation and curettage (~09/2019) Hx laparoscopic cholecystectomy (~09/2019) Hx of removal of ovary History of hernia repair History of Social History Smoking Status: Never smoker Electronic Cigarette Use: not used second hand exposure: No alcohol intake: never substance use type: does not use caffeine: No what type of physical activity do you participate in: walking frequency: 5-6 times per week seatbelt use: always do you feel safe at home: Yes additional social history: Single- Currently unemployed ROS ROS ED Constitutional Constitutional ED: Denies chills or fever(s) Eyes Eyes: Denies blurry vision or change in vision ENT ENT ED: Denies rhinorrhea or sore throat Cardiovascular Cardiovascular: Reports chest pain; Denies palpitations Respiratory/Chest Respiratory/Chest: Reports cough and dyspnea Gastrointestinal Gastrointestinal: Reports nausea and vomiting Genitourinary Genitourinary ED: Denies dysuria or hematuria Musculoskeletal Musculoskeletal: Reports back pain; Denies neck pain Integumentary Denies abscess or rash Neurologic Neurologic: Denies headache(s) or weakness Allergic/Immunologic Allergic/Immunologic ED: Denies mouth swelling or urticaria EXAM Physical Exam Const Vital Signs: 07/16/24 19:22 07/16/24 19:25 07/16/24 20:03 Temperature 98.3 F 97.8 F Temperature Source Temporal Oral Pulse Rate 93 84 87 Respiratory Rate 18 25 H 18 Respiratory Effort Respiratory Depth Respiratory Pattern Normal Blood Pressure 131/77 H 131/97 H Blood Pressure Mean 95 108 Pulse Ox 99 98 Oxygen Delivery Method Room Air Room Air 07/16/24 20:08 07/16/24 20:25 07/16/24 21:15 Temperature 98 F Temperature Source Oral Pulse Rate 91 91 Respiratory Rate 22 H 23 H Respiratory Effort Short of Breath Respiratory Depth Normal Respiratory Pattern Tachypnea Blood Pressure 120/82 H 120/82 H Blood Pressure Mean 94 94 Pulse Ox 99 100 Oxygen Delivery Method Room Air Room Air Room Air Positive well nourished and well developed Constitutional Narrative: BMI is 33.9. General Appearance ED: well developed and NAD HEENT Reports moist mucous membranes Neck supple and no JVD Resp normal respiratory effort Auscultation: diminished lung sounds diffuse Cardio regular rate and regular rhythm GI non-tender and non-distended Palpation: soft Back/Spine no CVA tenderness Neuro oriented x3, CN's II-XII intact bilaterally and no sensory deficits noted Veronica Coma Scale: document GCS findings Spontaneous Obeys Commands Oriented 15 Sensorium / Orientation: alert Speech: speech normal Motor Exam: strength 5/5 throughout Psych mental status grossly normal MDM MDM MDM Narrative Medical decision making narrative: Differential diagnosis includes pneumonia, bronchitis, viral upper respiratory infection, cardiac dysrhythmia, and cardiac ischemia. EKG will be obtained to assess for cardiac dysrhythmia and cardiac ischemia. Chest x-ray will be obtained to assess for pneumonia and bronchitis. CBC will be obtained to assess for leukocytosis and anemia. Basic metabolic profile will be obtained to assess for electrolyte abnormality and renal function. COVID-19, influenza, and RSV PCR will be obtained to assess for viral illness. History & Record Review Additional record(s) reviewed:: Prior outpatient record, Prior ED visit and Prior labs Lab Data Attestation: I reviewed the patient's lab results. Lab results narrative: CBC was reviewed and was within normal limits. Basic metabolic profile was reviewed. Glucose was slightly elevated at 134. The remainder is within normal limits. Serum hCG was reviewed and was negative. COVID-19 PCR was reviewed and was negative. Influenza PCR was reviewed and was negative for influenza A and influenza B. RSV PCR was reviewed and was negative. Labs: Laboratory Results - last 24 hr 07/16/24 19:54 WBC 5.8 RBC 4.65 Hgb 13.1 Hct 39.2 MCV 84.3 MCH 28.2 MCHC 33.4 RDW Std Deviation 39.5 RDW Coeff of Karon 13.0 Plt Count 256 MPV 8.9 Immature Gran % (Auto) 0.300 Neut % (Auto) 48.0 Lymph % (Auto) 37.7 [place] % (Auto) 9.5 Eos % (Auto) 4.0 Baso % (Auto) 0.5 Absolute Neuts (auto) 2.8 Absolute Lymphs (auto) 2.17 Nucleated RBC % 0 Sodium 139 Potassium 3.5 Chloride 105 Carbon Dioxide 22.2 Anion Gap 12 BUN 6 Creatinine 0.76 Estim Creat Clear Calc 102.81 Est GFR (MDRD) Non-Af 101 BUN/Creatinine Ratio 7.6 L Glucose 134 H Calcium 9.1 Serum , Qual NEGATIVE Radiography Chest X-Ray - ED: 2 View, Read by ED Physician, Read by Radiologist and No Acute Disease Diagnostic Testing: Clinical Impression(s) from Imaging Studies Chest X-Ray 07/16/24 20:20 IMPRESSION: NO ACUTE FINDINGS. Reading Location: [facility] PA and lateral chest x-ray was obtained. There are 2 views. On my independent interpretation, lung carias are clear. There is normal cardiac silhouette. Bony thorax is normal. There is no acute process noted. Radiologist also interpreted the x-ray and agrees. EKG Initial EKG: Attestation: I personally reviewed and interpreted this EKG as follows: Interpretation: Sinus Rhythm (92) and No Acute Injury Pattern Comments: EKG was obtained. On my independent interpretation, it showed a normal sinus rhythm with a rate of 92. CT interval, QRS interval, and QTc intervals were all normal. [place] was normal. There are no acute ST or T wave changes. Prior EKG tracings: available for review Prior: Unchanged (05/19/2021) Treatment and Re-Evaluation :: Patient was given a DuoNeb aerosol here. Patient was feeling somewhat better on reevaluation. Patient was advised of her findings. Patient was advised this is most likely a viral upper respiratory infection. Patient was instructed to drink plenty of fluids. Patient was instructed continue her albuterol inhaler as prescribed. Patient was instructed to follow-up with her primary care physician in 5 to 7 days. Patient understood and was agreeable with the plan. All questions were answered. Discharge Plan Triage Chief Complaint: Shortness of Breath ED Provider: Stewart Emdonds Dx/Rx/DC Orders Clinical Impression: Viral upper respiratory infection, Crohn's disease, Hypertension Instructions: ED URI, Viral, No Abx (Adult) Prescriptions: No Action multivitamin tablet 1 tab PO DAILY potassium chloride 20 mEq tablet extended release 20 meq PO DAILY atenolol 25 mg tablet 25 mg PO DAILY Qty: 90 3RF Rx Instructions: Takes BID if BP or HR are elevated pantoprazole 40 mg tablet,delayed release (DR/EC) 40 mg PO QDAY Qty: 90 1RF Rx Instructions: take 30 minutes before breakfast every day albuterol sulfate 1 INHALER inhaler 1 - 2 puff INHALATION Q6H PRN PRN (Reason: Asthma) ondansetron 4 mg tablet,disintegrating 4 mg PO Q8H PRN (Reason: nausea and vomiting) Qty: 90 1RF (DME) Hydrocortisone 2.5% / Lidocaine 5% ointment (cmpd) Ointment See Rx Instructions .Route Qty: 30 0RF Rx Instructions: instill a pea sized amount into the rectum BID PRN for rectal pain Humira(CF) Pen 40 mg/0.4 mL pen injector kit 40 mg subcut Q2W Qty: 4 1RF Primary Care Provider: Anant Curran Referrals: Anant Curran DO [Primary Care Provider] - 5-7 Days Print Language: Mongolian Disposition Disposition: Home, Self Care
--- NOTE | 2024-07-16 19:41 | EKG12_ITS ---
Test Reason : DYSRHYTHMIA Blood Pressure : */* mmHG Vent. Rate : 92 BPM Atrial Rate : 92 BPM P-R Int : 134 ms QRS Dur : 88 ms QT Int : 364 ms P-R-T Axes : 40 43 40 degrees QTcB Int : 450 ms Normal sinus rhythm Normal ECG Confirmed by KYLE WHARTON, KATIE ([id number]), tape editor SOTERO WILKINS ([id number]) on 07/19/2024 7:57:53 AM Referred By: Confirmed By: KATIE WRIGHT MD
[2024-07-16 20:03] VITALS: PULSE 87; RESP 18
[2024-07-16] MEDS: Ipratropium/Albuterol Sulfate 3 ML AMPUL.NEB INHALATION (20:03)
[2024-07-16 20:07] LABS: Absolute Lymphocyte Count 2.17 X10^3/uL (0.83-4.51); Absolute Neutrophil Count 2.8 X10^3/uL (2.0-7.7); Basophil# 0.03 X10^3/uL; Basophil% 0.5 % (0-1); Eosinophil# 0.23 X10^3/uL; Hematocrit 39.2 % (37-47); Hemoglobin 13.1 g/dL (12.0-15.0); Lymphocyte # 2.17 X10^3/ul (0.83-4.51); Lymphocyte % 37.7 % (19-41); Mean Corp Hgb Conc 33.4 g/dL (32-36); Mean Corpuscular Hgb 28.2 pg (27.0-32.0); Mean Corpuscular Volume 84.3 fL (81-99); Mean Platelet Vol. 8.9 fl (6.2-12.0); Monocyte# 0.55 X10^3/uL; Monocyte% 9.5 % (0-10); NRBC Flagged by Analyzer 0 % (0-5); Neutrophil # 2.76 X10^3/uL (2.7-7.7); Platelet Count 256 K/mm3 (150-450); RBC Distribution Width SD 39.5 fl (35.1-43.9); Red Blood Count 4.65 M/mm3 (4.2-5.4); White Blood Count 5.8 K/mm3 (4.4-11.0)
[2024-07-16 20:08] VITALS: O2SAT 98
[2024-07-16 20:15] LABS: Internal QC Validated? YES +Cl - CLEAR BKGD; Pregnancy, Serum, hCG Quali. NEGATIVE Negative
--- NOTE | 2024-07-16 20:20 | RAD_ITS ---
PROCEDURE: CHEST PA AND LATERAL 07/16/2024 REASON FOR EXAM: COUGH TECHNIQUE: Frontal and lateral views of the chest. COMPARISON: None FINDINGS: Hardware: None Heart: The heart size is normal. Mediastinum: The mediastinal contour is unremarkable. Lungs: The lungs are clear. Bones: The bones are unremarkable. RAD/Chest PA and Lateral IMPRESSION: NO ACUTE FINDINGS. Reading Location: [facility]
[2024-07-16 20:25] VITALS: BP 120/82; PULSE 91; RESP 22; TEMP 36.6; O2SAT 99
[2024-07-16 20:39] LABS: Anion Gap 12 (5-15); BUN 6 mg/dL (4-19); BUN/Creat Ratio 7.6 RATIO (10-20); Calcium,Total 9.1 mg/dL (7.6-11.0); Carbon Dioxide 22.2 mmol/L (21.0-32.0); Chloride 105 mmol/L (98-108); Creatinine, Serum 0.76 mg/dL (0.70-1.20); EST Glomerular Filtration Rate 101 (>60); Estimated Creatinine Clearance 102.81 ml/min (50-250); Glucose 134 mg/dL (70-99); Potassium 3.5 mmol/L (3.3-5.1); Sodium Level 139 mmol/L (133-145)
[2024-07-16 21:15] VITALS: BP 120/82; PULSE 91; RESP 23; O2SAT 100
== END 2024-07-16 22:04 | disposition home or self-care (01) ==
PROVIDERS: Emergency Provider Emergency Medicine; PCP Family Medicine; Visit Provider Emergency Medicine
DX: J06.9 Acute upper respiratory infection, unspecified (principal); K50.90 Crohn's disease, unspecified, without complications; I10 Essential (primary) hypertension; K21.9 Gastro-esophageal reflux disease without esophagitis; R07.9 Chest pain, unspecified
CPT/HCPCS: 71046; 80048; 84703; 85025; 87631; 93005; 94640; 99283; A4216

== ENCOUNTER 2024-07-19 02:05 | Emergency (ER) | payer OTHER, SELFPAY ==
[2024-07-19 02:05] VITALS: BP 141/100; PULSE 76; RESP 16; TEMP 36.8; O2SAT 100; BMI 32.1
[2024-07-19 02:08] VITALS: BP 140/100; PULSE 76; RESP 16; TEMP 36.8; O2SAT 100
--- NOTE | 2024-07-19 03:04 | RAD_ITS ---
PROCEDURE: CHEST PA AND LATERAL 07/19/2024 REASON FOR EXAM: COUGH TECHNIQUE: Frontal and lateral views of the chest. COMPARISON: 07/16/2024 FINDINGS: The lungs are clear. Pulmonary vascularity appears within limits. No pneumothorax or pleural effusion. The cardiac and mediastinal contours appear within limits. The visualized osseous structures appear within limits. RAD/Chest PA and Lateral IMPRESSION: No evidence of acute disease. Reading Location: [id number]
[2024-07-19] MEDS: predniSONE 20 MG Tablet 60 MG PO (03:17)
[2024-07-19] MEDS: guaiFENesin/Codeine 5 ML UDC 10 ML PO (03:17)
[2024-07-19] MEDS: Ipratropium/Albuterol Sulfate 3 ML AMPUL.NEB INHALATION (03:18)
[2024-07-19 03:20] VITALS: PULSE 80; RESP 16
--- NOTE | 2024-07-19 05:07 | EDS_ITS ---
HPI History of Present Illness Chief Complaint: Cough Informant: patient and spouse/S.O. Narrative Narrative: Patient is a 38-year-old female with past medical history of lupus hypertension and PCOS. She does report a history of exercise-induced asthma as well but states overall it is well-controlled. She states her son was sick and diagnosed with pneumonia recently. She states he is getting better but for the past week she has had congestion and cough. She states it is to the point where she cannot sleep secondary to the persistent symptoms. She does states she had an x-ray at the start of her symptoms which was negative but as they are not improving she has concern that infection may have developed especially as she has lupus and is on Humira and therefore comes in for evaluation [facility] Medical History Abdominal pain Lupus Rheumatoid arthritis Interstitial cystitis History of DVT (deep vein thrombosis) Injury of head and neck History of diverticulitis History of Crohn's disease Shortness of breath on exertion History of edema History of stress test History of echocardiogram Cardiology follow-up encounter History of atrial fibrillation Ovarian cancer Left leg paresthesias Lumbar strain Kidney stones Medullary sponge kidney of both kidneys Kidney disease Acute maxillary sinusitis, unspecified Diarrhea History of Lyme disease Reflux involving intestinal tract POTS (postural orthostatic tachycardia syndrome) Wears glasses Anemia History of steroid therapy History of fatty infiltration of liver Non-smoker Leg cramps Edema Irregular heart beat Migraine headache Restless legs Back pain Syncope Ectopic cardiac beats Sinus tachycardia Symptomatic bradycardia lysis of adensions (~09/2019) Hepatic steatosis Acid reflux Asthma Sleep apnea Anxiety Hypertension Arthritis History of back problems h/o lesion removal Fatigue Endometriosis Ovarian cyst Hematochezia PCOS (polycystic ovarian syndrome) Ankylosing spondylitis Exercise-induced asthma Mitral regurgitation Tachycardia Prolapse of intestine Diverticulosis Hemorrhoids Anal fissure Home Medications ?Medication ?Instructions ?Recorded ?Last Taken ?Type multivitamin 1 tab PO DAILY 12/13/17/05/17 History albuterol sulfate 90 mcg/actuation 1 - 2 puff inhalati on Q6H PRN PRN 10/19/19 Unknown History aerosol inhaler Asthma ondansetron 4 mg disintegrating 4 mg PO Q8H PRN nausea and 10/22/23 Unknown Rx tablet vomiting #90 tabs atenolol 25 mg tablet 25 mg PO DAILY #90 tabs 10/20 Unknown Rx pantoprazole 40 mg tablet,delayed 40 mg PO QDAY #90 ta bs 05/29/24 Unknown Rx release Hydrocortisone 2.5% / Lidocaine 5% #30 grams 07/03/24 Unknown Rx ointment (cmpd) adalimumab 40 mg/0.4 mL 40 mg (0.4 mL) subcut Q2W cr ohn's 07/04/24 Unknown Rx subcutaneous pen kit (Humira(CF) #4 ea Pen) benzonatate 200 mg capsule 200 mg PO TID PRN 07/19/24 Unknown History codeine 10 mg-guaifenesin 100 mg/5 10 ml PO 4X/DAY PRN cough 7 days 07/19/24 Unknown Rx mL oral liquid (Guaifenesin AC) #280 mL ipratropium 0.5 mg-albuterol 3 mg 3 ml inhalation Q6H PRN shortness 07/19/24 Unknown Rx (2.5 mg base)/3 mL nebulization of breath or wheezing #180 mL soln potassium citrate 10 mEq (1,080 10 meq PO BID 07/19/24 Unknown History mg) tablet,extended release prednisone 20 mg tablet 40 mg (2 x 20 mg) PO DAILY 5 days 07/19/24 Unknown Rx #10 tabs Allergy/AdvReac Type Severity Reaction Status Date / Time cephalexin monohydrate (From Allergy Severe Anaphylaxis Verified 07/19/24 02:06 Keflex) cyclobenzaprine (From Allergy Severe Mental Verified 07/19/24 02:06 Flexeril) status change latex Allergy Mild Swelling Verified 07/19/24 02:06 eucalyptus AdvReac Severe tachycardia, Verified 07/19/24 02:06 close airway NSAIDS (Non-Steroidal AdvReac Severe GI upset Verified 07/19/24 02:06 Anti-Inflamma tamsulosin (From Flomax) AdvReac Severe Low BP/HR Verified 07/19/24 02:06 tizanidine AdvReac Severe Low HR Verified 07/19/24 02:06 ciprofloxacin (From Cipro) AdvReac diarrhea, Verified 07/19/24 02:06 nausea, tachycardia Family History Mother Heart disease Hypertension Father Heart disease Diabetes Hypertension Surgical History History of surgery History of hysterectomy History of cholecystectomy H/O cystoscopy (~09/2019) H/O dilation and curettage (~09/2019) Hx laparoscopic cholecystectomy (~09/2019) Hx of removal of ovary History of hernia repair History of Social History Smoking Status: Never smoker Electronic Cigarette Use: not used second hand exposure: No alcohol intake: never substance use type: does not use caffeine: No what type of physical activity do you participate in: walking frequency: 5-6 times per week seatbelt use: always do you feel safe at home: Yes additional social history: Single- Currently unemployed ROS ROS ED Constitutional Constitutional ED: Denies chills or fever(s) Eyes Eyes: Denies change in vision ENT ENT ED: Reports rhinorrhea and sore throat Cardiovascular Cardiovascular: Denies chest pain Respiratory/Chest Respiratory/Chest: Reports cough and dyspnea Gastrointestinal Gastrointestinal: Denies abdominal pain, diarrhea, nausea or vomiting Genitourinary Genitourinary ED: Denies dysuria Musculoskeletal Musculoskeletal: Denies myalgias Integumentary Denies rash Neurologic Neurologic: Reports headache(s) Hematologic/Lymphatic Hematologic/Lymphatic: Denies easy bleeding or easy bruising Allergic/Immunologic Allergic/Immunologic ED: Denies mouth swelling or tongue swelling EXAM Physical Exam Const Vital Signs: 07/19/24 02:05 07/19/24 02:08 07/19/24 02:08 Temperature 98.3 F 98.3 F Temperature Source Oral Oral Pulse Rate 76 76 Respiratory Rate 16 16 Respiratory Effort Normal Respiratory Depth Normal Respiratory Pattern Normal Blood Pressure 141/100 H 140/100 H Blood Pressure Mean 113 113 Pulse Ox 100 100 Oxygen Delivery Method Room Air Room Air 07/19/24 03:20 Temperature Temperature Source Pulse Rate 80 Respiratory Rate 16 Respiratory Effort Respiratory Depth Respiratory Pattern Blood Pressure Blood Pressure Mean Pulse Ox Oxygen Delivery Method Positive well nourished, well developed and obese General Appearance ED: well developed; Negative for pallor Nutritional Appearance: obese HEENT HEENT Narrative: No tongue or lip swelling no oral lesions no airway edema or compromise Bilateral TMs are slightly retracted but show no secondary findings to suggest infection Nasal mucosa is hyperemic and boggy with enlarged inferior nasal turbinate Cobblestoning is noted in the posterior pharynx consistent with sinus drainage Eyes PERRL and EOMs intact bilaterally Neck supple and no JVD Chest Wall palpation of chest normal Resp normal respiratory effort Resp Narrative: Breath sounds are diminished throughout with diffuse expiratory wheeze however no nasal flaring retractions tachypnea or accessory muscle use Cardio regular rate and regular rhythm Extremity normal to inspection Extremity Narrative: No asymmetric edema no pitting edema negative Homans' sign bilaterally Neuro oriented x3, CN's II-XII intact bilaterally and no sensory deficits noted Sensorium / Orientation: alert Motor Exam: strength 5/5 throughout Psych mental status grossly normal Skin no rashes or lesions noted General Skin Exam: Negative for jaundice or pallor MDM MDM MDM Narrative Medical decision making narrative: Patient presented to the ER hypertensive but has a past medical history of this and otherwise with stable vitals. She reported known sick contacts at home. Chart review does confirm her previous x-ray revealed no signs of acute infection. However because of her history of immunosuppression there is concern that pneumonia may have presented at this time. Therefore repeat chest x-ray was ordered. We discussed COVID influenza and RSV swabbing/testing but patient states she has done this previously and it was negative and does not want to repeat test. After receiving steroid cough syrup and a DuoNeb patient had improvement of her symptoms. She is not hypoxic or in respiratory distress. She is not requiring supplemental oxygen and her x-ray reveals no signs of lung pathology indicating that she has a viral URI. Without signs of systemic infection or need for supplemental oxygen there is no need for further evaluation and she is otherwise safe for discharge with symptomatic care History & Record Review Discussion w/independent historian: Patient and Significant other Radiography Diagnostic Testing: Clinical Impression(s) from Imaging Studies Chest X-Ray 07/19/24 03:04 IMPRESSION: No evidence of acute disease. Reading Location: [facility] Chest x-ray as interpreted by the emergency medicine physician reveals no acute infiltrate pneumothorax or pleural effusion Discharge Plan Triage Chief Complaint: Cough ED Provider: Serge Santos Dx/Rx/DC Orders Clinical Impression: Viral upper respiratory tract infection with cough, PCOS (polycystic ovarian syndrome), Hypertension, SLE (systemic lupus erythematosus) Instructions: ED URI, Viral W/ Wheezing (Adult) Prescriptions: New ipratropium-albuterol 0.5 mg-3 mg(2.5 mg base)/3 mL solution for nebulization 3 ml inhalation Q6H PRN (Reason: shortness of breath or wheezing) Qty: 180 0RF prednisone 20 mg tablet 40 mg PO DAILY 5 Days Qty: 10 0RF codeine-guaifenesin [Guaifenesin AC] 10-100 mg/5 mL liquid 10 ml PO 4X/DAY PRN (Reason: cough) 7 Days Qty: 280 0RF No Action multivitamin tablet 1 tab PO DAILY atenolol 25 mg tablet 25 mg PO DAILY Qty: 90 3RF Rx Instructions: Takes BID if BP or HR are elevated pantoprazole 40 mg tablet,delayed release (DR/EC) 40 mg PO QDAY Qty: 90 1RF Rx Instructions: take 30 minutes before breakfast every day albuterol sulfate 1 INHALER inhaler 1 - 2 puff INHALATION Q6H PRN PRN (Reason: Asthma) benzonatate 200 mg capsule 200 mg PO TID PRN potassium citrate 10 mEq (1,080 mg) tablet extended release 10 meq PO BID ondansetron 4 mg tablet,disintegrating 4 mg PO Q8H PRN (Reason: nausea and vomiting) Qty: 90 1RF (DME) Hydrocortisone 2.5% / Lidocaine 5% ointment (cmpd) Ointment See Rx Instructions .Route Qty: 30 0RF Rx Instructions: instill a pea sized amount into the rectum BID PRN for rectal pain Humira(CF) Pen 40 mg/0.4 mL pen injector kit 40 mg subcut Q2W Qty: 4 1RF Primary Care Provider: Anant Curran Referrals: Anant Curran, DO [Primary Care Provider] - Activity Restrictions/Additional Instructions: Your x-ray showed no sign of pneumonia. Your history and exam indicate you have a viral upper respiratory tract infection which will last on average 18 to 21 days. Use the prescribed medications as directed to help control symptoms and return to the ER should you have any further concerns Print Language: Beninese Disposition Disposition: Home, Self Care Discharge Date/Time: 07/19/24 05:16
== END 2024-07-19 05:16 | disposition home or self-care (01) ==
PROVIDERS: Emergency Provider Emergency Medicine; PCP Family Medicine; Visit Provider Emergency Medicine
DX: J06.9 Acute upper respiratory infection, unspecified (principal); M32.9 Systemic lupus erythematosus, unspecified; I10 Essential (primary) hypertension; E28.2 Polycystic ovarian syndrome
CPT/HCPCS: 71046; 94640; 99283

== ENCOUNTER → 2024-09-08 | Outpatient (CLI) | payer OTHER, SELFPAY ==
[2024-09-08 17:17] LABS: Follicle Stimulating Hormone 1.9 mIU/mL; Free T3 2.9 pg/mL (2.18-3.98); T3 Total - Triiodothyronine 1.17 ng/mL (0.80-2.00); T4 Total, Thyroxin 6.6 ug/dL (4.8-13.9); Thyroid Stim Hormone (TSH) 0.677 uIU/mL (0.300-4.200)
[2024-09-10 09:08] LABS: PROLACTIN 9.1 ng/mL (4.8-33.4)
== END | disposition home or self-care (01) ==
PROVIDERS: PCP Family Medicine; Referring Provider Family Medicine; Visit Provider Family Medicine
DX: E03.8 Other specified hypothyroidism (principal)
CPT/HCPCS: 36415; 83001; 83002; 84146; 84436; 84439; 84443; 84480; 84481

== ENCOUNTER → 2024-10-17 | Outpatient (CLI) | payer OTHER, SELFPAY ==
[2024-10-17 18:10] LABS: Hematocrit 39.6 % (37-47); Hemoglobin 12.7 g/dL (12.0-15.0); Immature Granulocytes Count 0.020 X10^3/uL (0.0-0.0); Mean Corp Hgb Conc 32.1 g/dL (32-36); Mean Corpuscular Volume 86.8 fL (81-99); Mean Platelet Vol. 9.7 fl (6.2-12.0); NRBC Flagged by Analyzer 0 % (0-5); Platelet Count 311 K/mm3 (150-450); RBC Distribution Width CV 13.0 % (11.6-14.6); RBC Distribution Width SD 41.0 fl (35.1-43.9); Red Blood Count 4.56 M/mm3 (4.2-5.4); White Blood Count 6.0 K/mm3 (4.4-11.0)
[2024-10-17 19:01] LABS: AST(SGOT) 25 U/L (<=31); Alanine Aminotransfer ALT/SGPT 30 U/L (<=34); Albumin, Serum 4.1 g/dL (3.5-5.0); Alkaline Phosphatase 73 U/L (35-104); Anion Gap 12 (5-15); BUN 9 mg/dL (4-19); BUN/Creat Ratio 13.6 RATIO (10-20); Calcium,Total 9.5 mg/dL (7.6-11.0); Carbon Dioxide 24.3 mmol/L (21.0-32.0); Chloride 104 mmol/L (98-108); Ferritin 97 ng/mL (22-378); Globulin 3.3 g/dL (2.2-4.2); Glucose 95 mg/dL (70-99); Potassium 4.0 mmol/L (3.3-5.1); Vitamin B12 385 pg/mL (180-914); Vitamin D,25 Hydroxy 31.0 ng/mL (30-100)
[2024-10-17 19:46] LABS: Iron 99 ug/dL (50-170)
== END | disposition home or self-care (01) ==
LOC: MTLAB 15:43
PROVIDERS: PCP Family Medicine; Referring Provider Nurse Practitioner Family; Visit Provider Nurse Practitioner Family
DX: R11.2 Nausea with vomiting, unspecified (principal); R53.83 Other fatigue; R19.7 Diarrhea, unspecified
CPT/HCPCS: 36415; 80053; 82306; 82607; 82728; 83540; 84439; 84443; 85025

== ENCOUNTER 2024-10-22 20:21 | Emergency (ER) | payer OTHER, SELFPAY ==
[2024-10-22 20:22] VITALS: BP 142/94; PULSE 85; RESP 16; TEMP 37.6; O2SAT 100; BMI 34.5
[2024-10-22 20:23] VITALS: BP 124/73; PULSE 78; RESP 18; TEMP 37.6; O2SAT 98
--- NOTE | 2024-10-22 20:39 | CT_ITS ---
PROCEDURE: ABDOMEN/PELVIS W IV CONT ONLY 10/22/2024 REASON FOR EXAM: ABDOMINAL PAIN TECHNIQUE: ABDOMEN/PELVIS W IV CONT ONLY Coronal and Sagittal reconstruction series were provided. CONTRAST: Isovue 370 VOLUME: 100 mL One or more dose reduction techniques were used (e.g., Automated exposure control, adjustment of the mA and/or kV according to patient size, use of iterative reconstruction technique. RADIATION DOSE SUMMARY: CTDlvol: 29 mGy DLP: 1122 mGycm COMPARISON: 05/30/2024 FINDINGS: Slight under aeration at the lung bases. Normal heart size. Diffuse hepatic steatosis. Status post cholecystectomy. Unremarkable pancreas, spleen, adrenal glands. Multiple, bilateral renal stones measuring up to 2 mm. No hydronephrosis or ureteral stones. Normal bladder. Status post hysterectomy. Normal right ovary. Left ovary not seen. No retroperitoneal or pelvic adenopathy. No free air. Nondistended bowel. Multiple diverticula. No acute large bowel findings. No acute abdominal wall findings. CT/Abdomen/Pelvis W IV Cont ONLY IMPRESSION: No acute findings. Reading Location: [place] [id number]
--- NOTE | 2024-10-22 20:39 | EDS_ITS ---
HPI HPI - GI History of Present Illness Chief Complaint: Abd Pain Narrative Narrative: 39-year-old female past medical history of Crohn disease on Humira presents with 1 week of nausea, vomiting, diarrhea and epigastric abdominal pain that radiates to her back. Past abdominal surgical history includes cholecystectomy and hysterectomy. She states she also has history of ovarian cancer. There was a tumor on her bowel, but they did not have to resection her intestine. She states that about a week ago she was post to go on vacation. She has been sick all week. The day they were to leave, she had nausea and vomiting and thought nothing of it. They were 12 hours into the trip when she stated she did not feel well and had to turn around and come home. She states she followed up with her primary care provider and they did a urinalysis and labs and everything seemed to be fine, however throughout the week she has had continued nausea, vomiting, and diarrhea. It is worse with eating. Today, when she ate something, she ended up vomiting. [facility] Medical History Kidney stones Lupus Rheumatoid arthritis Interstitial cystitis History of DVT (deep vein thrombosis) Injury of head and neck History of diverticulitis History of Crohn's disease Shortness of breath on exertion History of edema History of stress test History of echocardiogram Cardiology follow-up encounter History of atrial fibrillation Ovarian cancer Left leg paresthesias Lumbar strain Kidney stones Medullary sponge kidney of both kidneys Kidney disease Acute maxillary sinusitis, unspecified Abdominal pain Diarrhea History of Lyme disease Reflux involving intestinal tract POTS (postural orthostatic tachycardia syndrome) Wears glasses Anemia History of steroid therapy History of fatty infiltration of liver Non-smoker Leg cramps Edema Irregular heart beat Migraine headache Restless legs Back pain Syncope Ectopic cardiac beats Sinus tachycardia Symptomatic bradycardia lysis of adensions (~09/2019) Hepatic steatosis Acid reflux Asthma Sleep apnea Anxiety Hypertension Arthritis History of back problems h/o lesion removal Fatigue Endometriosis Ovarian cyst Hematochezia PCOS (polycystic ovarian syndrome) Ankylosing spondylitis Exercise-induced asthma Mitral regurgitation Tachycardia Prolapse of intestine Diverticulosis Hemorrhoids Anal fissure Home Medications Medication Instructions Recorded Last Taken Type multivitamin 1 tab PO DAILY 12/13/17 06/2 05/17 History albuterol sulfate 90 mcg/actuation 1 - 2 puff inhalati on Q6H PRN PRN 10/19/19 Unknown History aerosol inhaler Asthma ondansetron 4 mg disintegrating 4 mg PO Q8H PRN nausea and 10/22/23 Unknown Rx tablet vomiting #90 tabs atenolol 25 mg tablet 25 mg PO DAILY #90 tabs 10/20 Unknown Rx pantoprazole 40 mg tablet,delayed 40 mg PO QDAY #90 ta bs 05/29/24 Unknown Rx release Hydrocortisone 2.5% / Lidocaine 5% #30 grams 07/03/24 Unknown Rx ointment (cmpd) ipratropium 0.5 mg-albuterol 3 mg 3 ml inhalation Q6H PRN shortness 07/19/24 Unknown Rx (2.5 mg base)/3 mL nebulization of breath or wheezing #180 mL soln potassium citrate 10 mEq (1,080 10 meq PO BID 07/19/24 Unknown History mg) tablet,extended release Allergy/AdvReac Type Severity Reaction Status Date / Time cephalexin monohydrate (From Allergy Severe Anaphylaxis Verified 10/22/24 20:22 Keflex) cyclobenzaprine (From Allergy Severe Mental Verified 10/22/24 20:22 Flexeril) status change latex Allergy Mild Swelling Verified 10/22/24 20:22 eucalyptus AdvReac Severe tachycardia, Verified 10/22/24 20:22 close airway NSAIDS (Non-Steroidal AdvReac Severe GI upset Verified 10/22/24 20:22 Anti-Inflamma tamsulosin (From Flomax) AdvReac Severe Low BP/HR Verified 10/22/24 20:22 tizanidine AdvReac Severe Low HR Verified 10/22/24 20:22 ciprofloxacin (From Cipro) AdvReac diarrhea, Verified 10/22/24 20:22 nausea, tachycardia Family History Mother Heart disease Hypertension Father Heart disease Diabetes Hypertension Surgical History History of surgery History of hysterectomy History of cholecystectomy H/O cystoscopy (~09/2019) H/O dilation and curettage (~09/2019) Hx laparoscopic cholecystectomy (~09/2019) Hx of removal of ovary History of hernia repair History of Social History Smoking Status: Never smoker Electronic Cigarette Use: not used second hand exposure: No alcohol intake: never substance use type: does not use caffeine: No what type of physical activity do you participate in: walking frequency: 5-6 times per week seatbelt use: always do you feel safe at home: Yes additional social history: Single- Currently unemployed ROS ROS ED ROS Narrative Review of systems positive for abdominal pain, nausea, vomiting, and diarrhea. She may have felt feverish over the last week as well. No exacerbating or alleviating factors with the exception of food making it worse. She seems to vomit after every time she eats. No dysuria or hematuria. Pain is epigastric radiating to the back mainly on the right side, but became bilateral as well. EXAM Physical Exam Narrative Exam Narrative: Afebrile. Vital signs noted. Nontoxic-appearing. Cardiovascular examination reveals regular rate and rhythm. Lungs are clear to auscultation bilaterally. Abdomen is soft with diffuse tenderness to palpation but mainly in the epigastrium, no rebound or guarding. Positive bowel sounds. Neurological examination nonfocal, nonlateralizing. Const Vital Signs: 10/22/24 20:22 10/22/24 20:23 10/22/24 21:23 Temperature 99.6 F H 99.6 F H 98.1 F Temperature Source Oral Oral Temporal Pulse Rate 85 78 68 Respiratory Rate 16 18 18 Blood Pressure 142/94 H 124/73 H 122/78 H Blood Pressure Mean 110 90 92 Pulse Ox 100 98 98 Oxygen Delivery Method Room Air Room Air Room Air 10/22/24 22:00 10/22/24 22:21 Temperature 98.5 F 98.6 F Temperature Source Oral Oral Pulse Rate 100 75 Respiratory Rate 18 16 Blood Pressure 121/68 H 120/77 Blood Pressure Mean 85 91 Pulse Ox 100 98 Oxygen Delivery Method Room Air MDM MDM MDM Narrative Medical decision making narrative: The differential diagnosis includes but not limited to gastroenteritis versus pancreatitis versus partial small bowel obstruction/bowel obstruction versus colitis versus Crohn's exacerbation. Comprehensive workup was pursued. She was administered morphine and ondansetron and bolus normal saline. I do feel CT imaging is indicated. I have lower suspicion for ureterolithiasis as her pain was bilateral. I reviewed her laboratory work and she has normal white count of 10.3 with hemoglobin 12.6, hematocrit 38.2, platelet count 291. Electrolyte panel shows normal sodium of 141 with potassium 3.3, BUN of 11 and creatinine normal at 0.79, glucose elevated at 138 but anion gap normal at 13. AST slightly elevated at 35 which I think is nonspecific, normal ALT of 32 and alk phos 72. Lipase normal at 61 so I do not think she has a pancreatitis. Urinalysis is negative for infection and blood with 0 WBCs and 0 RBCs. I do not feel antibiotics are indicated. Of most significance, her CT results were reviewed and there is no acute process, no obstruction, no colonic wall thickening. This point in time, I feel she can be discharged to follow-up with her primary care provider and gastroenterology. She states that she was on Humira but started to develop antibodies so they were going to change her medication. Additionally, she states she gets periods of abdominal pain where her heart rate will rise, and so while her blood pressure then I will come back down. Her heart rate is currently in the 70s on the monitor and she has a systolic blood pressure of 121. I offered to write her antinausea medications but she states she has Zofran and Phenergan at home. I do not feel that she requires observation or admission at this time based on her negative workup today. Return instructions to the emergency department were reviewed. Disposition is discharged home in stable condition. History & Record Review Discussion w/independent historian: Patient Additional record(s) reviewed:: Prior ED visit and Prior labs Lab Data Attestation: I reviewed the patient's lab results. Labs: Laboratory Results - last 24 hr 10/22/24 20:58 WBC 10.3 RBC 4.42 Hgb 12.6 Hct 38.2 MCV 86.4 MCH 28.5 MCHC 33.0 RDW Std Deviation 40.4 RDW Coeff of Karon 12.9 Plt Count 291 MPV 9.1 Immature Gran % (Auto) 0.200 Neut % (Auto) 51.5 Lymph % (Auto) 40.4 [place] % (Auto) 5.3 Eos % (Auto) 2.3 Baso % (Auto) 0.3 Absolute Neuts (auto) 5.3 Absolute Lymphs (auto) 4.16 Nucleated RBC % 0 Sodium 141 Potassium 3.3 Chloride 103 Carbon Dioxide 25.1 Anion Gap 13 BUN 11 Creatinine 0.79 Estim Creat Clear Calc 98.91 Est GFR (MDRD) Non-Af 97 BUN/Creatinine Ratio 14.4 Glucose 138 H Calcium 9.0 Total Bilirubin 0.18 AST 35 H ALT 32 Alkaline Phosphatase 72 Total Protein 7.3 Albumin 4.3 Globulin 3.0 Albumin/Globulin Ratio 1.4 Lipase 61 Urine Color Yellow Urine Clarity Clear Urine pH 6.5 Ur Specific [place] 1.020 Urine Protein 15 H Urine Glucose (UA) Normal Urine Ketones Negative Urine Occult Blood 10 H Urine Nitrite Negative Urine Bilirubin Negative Urine Urobilinogen Normal Ur Leukocyte Esterase Negative Urine RBC 0 SEEN Urine WBC 0 SEEN Ur Squamous Epith Cells 0-5 SEEN Urine Bacteria 1+ Urine Mucus 0 SEEN Radiography Diagnostic Testing: Clinical Impression(s) from Imaging Studies Abdomen/Pelvis CT 10/22/24 20:39 IMPRESSION: No acute findings. Reading Location: [place] [id number] Discharge Plan Triage Chief Complaint: Abd Pain ED Provider: Kieran José Dx/Rx/DC Orders Clinical Impression: Abdominal pain, Crohn's disease, Nausea & vomiting Instructions: ED Abdominal Pain Unkn Cause Fem, ED Diet Vomiting Diarrhea, ED Pain, Acute, Uncertain Cause Prescriptions: No Action multivitamin tablet 1 tab PO DAILY atenolol 25 mg tablet 25 mg PO DAILY Qty: 90 3RF Rx Instructions: Takes BID if BP or HR are elevated pantoprazole 40 mg tablet,delayed release (DR/EC) 40 mg PO QDAY Qty: 90 1RF Rx Instructions: take 30 minutes before breakfast every day albuterol sulfate 1 INHALER inhaler 1 - 2 puff INHALATION Q6H PRN PRN (Reason: Asthma) potassium citrate 10 mEq (1,080 mg) tablet extended release 10 meq PO BID ipratropium-albuterol 0.5 mg-3 mg(2.5 mg base)/3 mL solution for nebulization 3 ml inhalation Q6H PRN (Reason: shortness of breath or wheezing) Qty: 180 0RF ondansetron 4 mg tablet,disintegrating 4 mg PO Q8H PRN (Reason: nausea and vomiting) Qty: 90 1RF (DME) Hydrocortisone 2.5% / Lidocaine 5% ointment (cmpd) Ointment See Rx Instructions .Route Qty: 30 0RF Rx Instructions: instill a pea sized amount into the rectum BID PRN for rectal pain Primary Care Provider: Anant Curran Referrals: Anant Curran DO [Primary Care Provider] - 3-5 Days if not improving Friend,DO Logan [Med Staff - Active Staff] - As soon as possible Activity Restrictions/Additional Instructions: Continue your medications as previously directed. Follow-up with your primary care provider and/or gastroenterology. Return with new or worsening symptoms. Print Language: Bhutanese Disposition Disposition: Home, Self Care
--- OUTSIDE RECORDS SUMMARY | 2024-10-22 20:54 | XMS RPT_ITS | CCD ---
Author Organization [facility] CliniSytn Care Team Providers Care Biochemistry Specialist Name Role Phone Mayela Tyler LPN Unavailable Unavailable Ora Jin Unavailable Unavailable Ora Jin Unavailable Unavailable Rudy Branch Unavailable Unavailable Polo, Apurva Unavailable Unavailable Polo, Apurva Unavailable Unavailable Polo, Apurva Unavailable Unavailable Polo, Apurva Unavailable Unavailable Polo, Apurva Unavailable Unavailable Polo, Apurva Unavailable Unavailable Pawa, Pratheep Unavailable Unavailable [place] ANDERSON (PT) Unavailable Unavailable CHERRY VELOZ (PA) Unavailable Unavailabl e Rudy Branch Primary Care Provider [phone] Rudy Branch Unavailable Unavailable Unavailable DR RUDY BRANCH DO Primary Care Physician [phone] Chito CONTI, Colleen Cheema Unavailable Cogar RANCH HAND, Canelo N Unavailable Cogar RANCH HAND, Canelo N Unavailable Mia Meehan MD Unavailable Mayela Tyler LPN Unavailable Unavailable Cogar RANCH HAND, Canelo N Unavailable Cogar RANCH HAND, Canelo N Unavailable Cogar RANCH HAND, Canelo N Unavailable Cogar RANCH HAND, Canelo N Unavailable Cogar RANCH HAND, Canelo N Unavailable Mary Anne RN RN, Canelo A Unavailable eJrmaine North RN RN, Canelo A Unavailable Unavailmichelle Tyler LPN, Mayela Rob Unavailable Unavailable Dr. Rudy Branch Primary Care Provider [phone] Dr. Logan Junior Attending Provider [phone] Dr. Stephen Nina Referring Provider [phone] Dr. Rudy Branch Referring Provider [phone] Ramakrishna CORE MOUNTER, CORE MOUNTER-C Peyton Estrada Attending Provider [phone] Dr. Stephen Nina Attending Provider [phone] Dr. Emmanuel Wong Attending Provider Rudy Branch DO Primary Care Provider Ky Carter MD Unavailable Saida Perera DO Unavailable Ky Carter MD Unavailable DR URDY BRANCH DO Primary Care [phone] Dr. Rudy Branch Primary Care Provider [phone] Dr. Rudy Branch Referring Provider Ramakrishna CONTI, CORE MOUNTER-C Peyton Estrada Attending Provider [phone] Dr. Ceci Nance Attending Provider [phone] Ky Carter MD Unavailable [phone] Dr. Rudy Branch Primary Care Provider [phone] Dr. Rudy Branch Referring Provider Renato BLANTON, PA Adarsh Estrada Attending Provider Dr. Stephen Nina Attending Provider [phone] Ramakrishna CORE MOUNTER, CORE MOUNTER-C Peyton Estrada Attending Provider [phone] Rudy Branch DO Primary Care Provider Ky Carter MD Unavailable [phone] Dilma DO, Saida R Unavailable Isa BLANTON, PA Angeles Estrada Attending Provider Jose Carlos DRISCOLL, Rudy A Primary Care Provider Ky Carter MD Unavailable Wilmar Davis Attending Unavailable Jose Carlos, Rudy Primary Care Unavailable PROVIDER, UNKNOWN Referring Unavailable Jose Carlos, Rudy Primary Care Unavailable PROVIDER, UNKNOWN Referring Unavailable Wilmar Davis Attending Unavailable Jose Carlos , Rudy A Primary Care Provider Jose Carlosjose DRISCOLL, Rudy A Primary Care Provider Ky Carter MD Unavailable Dilma DRISCOLL, Sadia R Unavailable Dr. Rudy Branch Primary Care Provider [phone] Rudy Branch Referring Provider Isa BLANTON, PA Angeles Estrada Attending Provider Ramakrishna CORE MOUNTER, CORE MOUNTER-C Peyton Estrada Attending Provider Dr. Rudy Branch Primary Care Provider Dr. Rudy Branch Referring Provider Dr. Mia Meehan Attending Provider Wei CORE MOUNTER, CORE MOUNTER-C Estefani Attending Provider Dr. Rudy Branch Primary Care Provider Dr. Rudy Branch Referring Provider Dr. Mia Meehan Attending Provider [phone] Wei CORE MOUNTER, CORE MOUNTER-C Estefani Attending Provider Dr. Rudy Branch Primary Care UnavailMD MARIE Ch Attending Tiffanieab sam Styles, Dr. Marie Hathaway Attending Dr. Rudy Alexander Primary Care Unavaila luca Perera DO, Saida R Unavailable Rudy Branch Primary Care Provider [phone] Wilmar Davis MD Unavailable WILMAR DAVIS Attending Unavailable RUDY BRANCH Primary Care Unavailable MIA MEEHAN Referring Unavailable Zanotnemesio, Dr. Marie Hathaway Referring Unav ailable Alex, Alessandra Thea Attending Unavailable Jose Carlos, Dr. Rudy Callahan Primary Care Unavaila ble Jose Carlos, Dr. Rudy Callahan Primary Care Unavaila ble Jensen, Dr. Marie Hathaway Admitting Unav ailable Zaangeles, Dr. Marie Hathaway Attending Unav ailable Jose Carlos, Dr. Rudy Callahan Primary Care Unavaila ble Zaangeles, Dr. Marie Hathaway Admitting Unav ailable Zaangeles, Dr. Marie Hathaway Attending Unav ailable William, Dr. Hellen Mchugh Referring Unavaila ble Jose Carlos, Dr. Grant Primary Care Provider [phone] Dr. Rudy Branch Referring Provider Dr. Humberto Vo Attending Provider [phone] Rudy Branch Primary Care Provider [phone] Dr. Rudy Branch Referring Provider Dr. Humberto Vo Attending Provider Roof CORE MOUNTER, CORE MOUNTER-Juan Vaz Attending Provider HARVINDER Childers Attending Provider [phone] Rudy Branch DO Primary Care Provider Rudy Branch DO Unavailable [phone] RUDY BRANCH Primary Care Unavailable Dr. Rudy Branch Primary Care Provider [phone] Dr. Rudy Branch Referring Provider HARVINDER Juan Attending Provider Dr. Stewart Ramirez Attending Provider [phone] HARVINDER Childers Referring Provider [phone] Rudy Branch DO Primary Care Provider Rudy Branch DO Unavailable ROSSY LAINEZ Referring Unavailable RUDY BRANCH Primary Care Unavailable Dr. Rudy Branch Primary Care Provider [phone] Dr. Rudy Branch Referring Provider Dr. Logan Junior Attending Provider [phone] Dr. Rudy Branch Primary Care Provider [phone] Dr. Rudy Branch Referring Provider HARVINDER Juan Attending Provider Dr. Stewart Ramirez Attending Provider [phone] HARVINDER Childers Referring Provider [phone] Logan uJnior Attending Provider THEA HERNANDEZ Attending Unavailable JOSE CARLOS, RUDY A Primary Care Unavailable ROSSY LAINEZ Attending Unavailable JOSE CARLOS, RUDY A Primary Care Unavailable DANAY RAMIRES Attending Unavailable PINA, CANELO L Referring Unavailable JOSE CARLOS, RUDY A Primary Care Unavailable CANELO PINA Attending Unavailable JOSE CARLOS, RUDY A Primary Care Unavailable PINA CANELO L Attending Unavailable JOSEC ARLOS, RUDY A Primary Care Unavailable FATOU ROSSY Liane Attending Unavailable JOSE CARLOS, RUDY A Primary Care Unavailable CANELO PINA L Referring Unavailable JOSE CARLOS, RUDY A Primary Care Unavailable Dr. Rudy Branch Primary Care Provider [phone] Dr. Rudy Branch Referring Provider [facility] CORE MOUNTER, CORE MOUNTER-Juan Vaz Attending Provider CAMMY BOYCE Attending Unavailable ALEA WATERS Referring Unavailable JOSE CARLOS, RUDY A Primary Care Unavailable CAMMY BOYCE Attending Unavailable JOSE CARLOS, RUDY A Primary Care Unavailable Dr. Rudy Branch Primary Care Provider [phone] Dr. Logan Junior Other Provider Rudy Branch DO Primary Care Provider Dr. Pernell Johnson Attending Provider [phone] CANELO PINA Referring Unavailable JOSE CARLOS, RUDY A Primary Care Unavailable JOSE CARLOS, RUDY A Primary Care Unavailable BRENDA BERG Referring Unavailable JOSE CARLOS, RUDY A Primary Care Unavailable BERG, BRENDA Attending Unavailable JOSE CARLOS, RUDY A Primary Care Unavailable BRIGEMAN, SERJIO Attending Unavailable JOSE CARLOS, RUDY A Primary Care Unavailable BRIGEMAN, SERJIO Referring Unavailable BRIGEMAN, SERJIO Attending Unavailable JOSE CARLOS, RUDY A Primary Care Unavailable BRIGEMAN, SERJIO Referring Unavailable JOSE CARLOS, RUDY A Primary Care Unavailable BRIGEMAN, SERJIO Referring Unavailable JOSE CARLOS, RUDY A Primary Care Unavailable BRIGEMAN, SERJIO Referring Unavailable BRIGEMAN, SERJIO Attending Unavailable JOSE CARLOS, RUDY A Primary Care Unavailable BRIGEMAN, SERJIO Referring Unavailable BRIGEMAN, SERJIO Attending Unavailable JOSE CARLOS, RUDY A Primary Care Unavailable BRIGEMAN, SERJIO Attending Unavailable JOSE CARLOS, RUDY A Primary Care Unavailable BRIGEMAN, SERJIO Attending Unavailable JOSE CARLOS, RUDY A Primary Care Unavailable JOSE CARLOS, RUDY A Primary Care Unavailable ZAINAB DUCKWORTH Attending Unavailable BRIGEMAN, SERJIO Referring Unavailable JOSE CARLOS, RUDY A Primary Care Unavailable DUCKWORTH, ZAINAB Referring Unavailable BERG, BRENDA Attending Unavailable JOSE CARLOS, RUDY A Primary Care Unavailable BRENDA BERG Referring Unavailable CANELO PINA Attending Unavailable JOSE CARLOS, RUDY A Primary Care Unavailable PINACANELO COVARRUBIAS Attending Unavailable JOSE CARLOS, RUDY A Primary Care Unavailable JOSE CARLOS, RUDY A Primary Care Unavailable CANELO PINA Attending Unavailable JOSE CARLOS, RUDY A Primary Care Unavailable MELISSA FERNÁNDEZ Referring Unavailable JOSE CARLOS, RUDY A Primary Care Unavailable JOSE CARLOS, RUDY A Primary Care Unavailable PINACANELO COVARRUBIAS Attending Unavailable JOSE CARLOS, RUDY A Primary Care Unavailable JOSE CARLOS, RUDY A Primary Care Unavailable JOSE CARLOS DO, DR GRANT A Primary Care Unavailab le REFERRING, PHY WO ID Attending Unavailable ANGELA WHARTON, ESTELLA Frederick Attending Unavailable JOSE CARLOS DO, DR GRANT A Primary Care Unavailab sam MARIE MD, ENRIKE Glaser Attending Unavail able JOSE CARLOS DO, DR GRANT A Primary Care Unavailab sam PERRY MD, POLO Cheema Attending Unavailable JOSE CARLOS DO, DR GRANT A Primary Care Unavailab sam MARIE MD, ENRIKE Glaser Attending Unavail able JOSE CARLOS DO, DR GRANT A Primary Care Unavailab sam DAVIS MD, DR GONG Attending Unavailabl e JOSE CARLOS DO, DR GRANT A Primary Care Unavailab le SUZI DO, DANIEL Attending Unavailable JOSE CARLOS DO, DR GRANT A Primary Care Unavailab le Jose Carlos DO, Rudy A Primary Care Provider Jignesh WHARTON, Melissa J Unavailable Jose Carlos, Rudy A Primary Care Provider Ryan WHARTON, Wilmar Cheema Unavailable Jose Carlos , Rudy Herrera Primary Care Provider JOSE CARLOS DRISCOLL, DR RUDY Herrera Primary Care Unavailab sam ALCANTARA MD, DR MONI Mcdonough Attending Alden Branch DO, Dr. Grant Primary Care Provider Jose Carlos DRISCOLL, Dr. Grant Attending Provider [phone] Jose Carlos DRISCOLL, Dr. Grant Referring Provider [phone] Elizabeth WHARTON, Dr. Gimenez Attending Provider Sonny CORE MOUNTER-CCeci Attending Provider Dr. Pernell Johnson MD Referring Provider Sonny CORE MOUNTER-CCeci Other Provider Franny Nguyễn Attending Provider Noreen Linares Attending Provider Sonny CONTI-CCeci Referring Provider Dr. Stewart Edmonds DO Emergency Provider Jonathon WHARTON, Dr. Andrei Garcia Other Provider Dr. Stewart Edmonds DO Attending Provider NICK MCMANUS Attending Unavailable JOSE CARLOS, RUDY A Primary Care Unavailable JOSE CARLOS, RUDY A Referring Unavailable NICK MCMANUS Attending Unavailable JOSE CARLOS, RUDY A Primary Care Unavailable JOSE CARLOS, RUDY A Referring Unavailable NICK MCMANUS Referring Unavailable DELWICHE, ANNEMARIE A Attending Unavailable JOSE CARLOS, RUDY A Primary Care Unavailable NICK MCMANUS Attending Unavailable SELF, SELF Referring Unavailable JOSE CARLOS, RUDY A Primary Care Unavailable DELWICHE, ANNEMARIE A Attending Unavailable JUDI, ANNEMARIE Sharon Referring Unavailable JOSE CARLOS, RUDY A Primary Care Unavailable Jose Carlos DRISCOLL, Dr. Grant Primary Care Provider Jose Carlos DRISCOLL, Dr. Grant Referring Provider Dr. Pernell Johnson MD Attending Provider Sonny CORE MOUNTER-C, Ceci Attending Provider Elizabeth WHARTON, Dr. Gimenez Referring Provider Sonny CORE MOUNTER-C, Ceci Other Provider Franny Nguyễn Attending Provider Noreen Linares Attending Provider Jose Carlos DRISCOLL, Dr. Grant Attending Provider [phone] Sonny CORE MOUNTER-C, Ceci Referring Provider Kendal DRISCOLL, Dr. William Attending Provider [phone] Kendal DRISCOLL, Dr. William Emergency Provider [phone] Jonathon WHARTON, Dr. Andrei Garcia Other Provider NICK MCMANUS Attending Provider NICK MCMANUS Referring Provider Danielle DRISCOLL, Dr. Valentine Emergency Provider Jose Carlos DRISCOLL, Dr. Grant Primary Care Provider Elizabeth WHARTON, Dr. Gimenez Attending Provider Jose Carlos DRISCOLL, Dr. Grant Referring Provider [phone] Sonny UGALDE, Ceci Attending Provider Dr. Serge Santos DO Attending Provider Dr. Logan Junior DO Attending Provider Dr. Rudy Branch DO Primary Care Provider Jose Carlos DRISCOLL, Dr. Grant Referring Provider Sonny CONTI-C, Ceci Attending Provider Dr. Rudy Branch DO Attending Provider [phone] Sonny CORE MOUNTER-C, Ceci Other Provider NICK MCMANUS Attending Provider NICK MCMANUS Referring Provider Andgordon DO, Dr. Valentine Attending Provider Andgordon DO, Dr. Valentine Emergency Provider Friend Dr. Logan DRISCOLL Attending Provider Noreen Linares Attending Provider Jose Carlos DRISCOLL, Dr. Grant Primary Care Provider Jose Carlos DRISCOLL, Dr. Grant Referring Provider Jose Carlos DRISCOLL, Dr. Grant Attending Provider [phone] Sonny CORE MOUNTER-CCeci Other Provider Noreen Linares Attending Provider Janine DRISCOLL, Dr. Ford Other Provider [phone] Ky Carter MD Unavailable LIZET HALE Attending Unavailable JOSE CARLOS, RUDY A Primary Care Unavailable SNEHA BENTON Attending Unavailable JOSE CARLOS, RUDY A Primary Care Unavailable Jose Carlos DO, Dr. Grant Primary Care Provider Kendal DRISCOLL, Dr. William Attending Provider Dr. Stewart Edmonds DO Emergency Provider Jose Carlos DRISCOLL, Dr. Grant Referring Provider [phone] Jose Carlos DRISCOLL, Dr. Grant Attending Provider [phone] Dr. Logan Junior DO Other Provider [phone] Mey Barnett Attending Provider [phone] Ceci Martinez Consulting Unavailable Jose Carlos, Rudy Primary Care Unavailable Andrei Holt Referring Unavailable Andrei Holt Attending Unavailable Logan Junior Attending Unavailable Jose Carlos, Rudy Primary Care Unavailable Jose Carlos, Rudy Primary Care Unavailable Jose Carlos, Rudy Attending Unavailable Ceci Martinez Referring Unavailable Jose Carlos, Rudy Primary Care Unavailable Ceci Martinez Attending Unavailable Jose Carlos, Rudy Primary Care Unavailable SonnyCeci pereyra Referring Unavailable Ceci Martinez Attending Unavailable Friend, Logan Referring Unavailable Friend, Logan Attending Unavailable Jose Carlos, Rudy Primary Care Unavailable Pernell Johnson Attending Unavailable Jose Carlos, Rudy Referring Unavailable Jose Carlos, Rudy Primary Care Unavailable Jose Carlos, Rudy Primary Care Unavailable Jose Carlos, Rudy Referring Unavailable Jose Carlos, Rudy Attending Unavailable Jose Carlos, Rudy Primary Care Unavailable Pernell Johnson Attending Unavailable Friend, Logan Attending Unavailable Jose Carlos, Rudy Primary Care Unavailable Jose Carlos, Rudy Referring Unavailable Jose Carlos, Rudy Primary Care Unavailable Noreen Rosenberg Attending Unavailable Jose Carlos, Rudy Referring Unavailable Mey Yun Attending Unavailable Jose Carlos, Rudy Primary Care Unavailable Jose Carlos, Rudy Referring Unavailable SHAHRZAD Referring Unavailable Jose Carlos, Rudy Primary Care Unavailable SHAHRZAD Attending Unavailable Friend, Logan Consulting Unavailable Jose Carlos, Rudy Primary Care Unavailable Jose Carlos, Rudy Attending Unavailable Jose Carlos, Rudy Referring Unavailable Friend, Logan Attending Unavailable Jose Carlos, Rudy Primary Care Unavailable Jose Carlos, Rudy Referring Unavailable Jose Carlos, Rudy Primary Care Unavailable Mey Yun Consulting Unavailable Jose Carlos, Rudy Referring Unavailable Jose Carlos, Rudy Attending Unavailable Friend, Logan Attending Unavailable Jose Carlos, Rudy Primary Care Unavailable Jose Carlos, Rudy Referring Unavailable Jose Carlos, Rudy Primary Care Unavailable Stewart Edmonds Attending Unavailable Serge Santos Attending Unavailable Jose Carlos, Rudy Primary Care Unavailable TristinDelores de Referring Unavailable Jose Carlos, Rudy Primary Care Unavailable TristinDelores de Attending Unavailable Friend, Logan Referring Unavailable Friend, Logan Attending Unavailable Jose Carlos, Rudy Primary Care Unavailable Jose Carlos, Rudy Primary Care Unavailable Jose Carlos, Rudy Attending Unavailable Jose Carlos, Rudy Referring Unavailable Friend, Logan Attending Unavailable Friend, Logan Referring Unavailable Jose Carlos, Rudy Primary Care Unavailable Jose Carlos, Rudy Attending Unavailable Jose Carlos, Ruyd Primary Care Unavailable Jose Carlos, Rudy Referring Unavailable Ceci Martinez Attending Unavailable Jose Carlos, Rudy Referring Unavailable Jose Carlos, Rudy Primary Care Unavailable Jose Carlos, Rudy Primary Care Unavailable Jose Carlos, Rudy Referring Unavailable Ceci Martinez Attending Unavailable Jose Carlos, Rudy Primary Care Unavailable Travis Estes NP Attending Unavailable Jose Carlos, Rudy Referring Unavailable Friend, Logan Attending Unavailable Jose Carlos, Rudy Primary Care Unavailable Jose Carlos, Rudy Referring Unavailable Friend, Logan Attending Unavailable Jose Carlos, Rudy Primary Care Unavailable Jose Carlos, Rudy Referring Unavailable Jose Carlos, Rudy Primary Care Unavailable Friend, Logan Attending Unavailable Jose Carlos, Rudy Referring Unavailable Jose Carlos, Rudy Primary Care Unavailable Franny Childers Attending Unavailable Jose Carlos, Rudy Referring Unavailable Noreen Rosenberg Attending Unavailable Jose Carlos, Rudy Primary Care Unavailable Jose Carlos, Rudy Referring Unavailable Jose Carlos, Rudy Primary Care Unavailable Jose Carlos, Rudy Attending Unavailable Jose Carlos, Rudy Referring Unavailable Stewart Edmonds Attending Unavailable Jose Carlos, Rudy Primary Care Unavailable Jose Carlos, Rudy Primary Care Unavailable Elizabeth, Pernell Referring Unavailable Elizabeth, [place] Attending Unavailable Ceci Martinez Consulting Unavailable Jose Carlos, Rudy Primary Care Unavailable Serge Santos Attending Unavailable Mey Yun Referring Unavailable Mey Yun Attending Unavailable Jose Carlos, Rudy Primary Care Unavailable Jose Carlos, Rudy Primary Care Unavailable Andrei Holt Consulting Unavailable Jose Carlos, Rudy Attending Unavailable Jose Carlos, Rudy Referring Unavailable Ceci Martinez Consulting Unavailable Allergies Allergy Classification Reported Allergen(s) Allergy Type Date of Onset Reaction(s) Facility Adrenergic Antagonists (1 source) tamsulosin Drug Allergy 022 Other: See Comments [facility] Calcium Channel Blockers (1 source) dilTIAZem Drug Allergy 019 Intolerance [facility] Work Phone: Cephalosporins (antibiotic) (2 sources) Cephalexin; Translations: [Keflex] Drug Allergy 003 Hives, Anaphylaxis [facility] DO Work Phone: Doxycycline (2 sources) Doxycycline; Translations: [Doxycycline Hyclate TABS] Drug Allergy 009 GI Upset [facility] Work Phone: Eucalyptus extract (1 source) Eucalyptus extract Drug Allergy 008 Hives, Swelling, Anaphylaxis, Shortness of Breath, Other: See Comments [facility] Hydroxychloroquine (2 sources) Hydroxychloroquine ; Translations: [Plaquenil Sulfate] Drug Allergy [address] [facility] DO Work Phone: Latex (2 sources) natural latex rubber Substance Allergy 009 Swelling [facility] Opioid Agonists (2 sources) HYDROmorphone; Translations: [hydromorphone] Drug Allergy [address] [facility] DO Work Phone: Quinolones (antibiotic) (1 source) Ciprofloxacin Drug Allergy 020 Other: See Comments [facility] tiZANidine (1 source) tiZANidine Drug Allergy 011 Mental Status Change [facility] (20 sources) cephalexin; Translations: [Keflex] Drug Allergy 014 hives and swelling, [facility] Work Phone: (20 sources) doxycycline Drug Allergy 014 GI discomfort [facility] Work Phone: (20 sources) eucalyptus oil Drug Allergy 008 Anaphylaxis, Hives, Shortness of breath, Dyspnea, Swelling [facility] Work Phone: (20 sources) natural latex rubber; Translations: [LATEX] allergy to substance 009 swelling, AOF [facility] Work Phone: (20 sources) doxycycline; Translations: [doxycycline] Drug Allergy 009 Diarrhea, GI Upset, Other [facility] Repository (1 source) eucalyptus extract; Translations: [eucalyptus topical] Drug Allergy [facility] Repository (20 sources) acetaminophen / HYDROcodone; Translations: [HYDROCODONE-ACETA MINOPHEN] Drug Allergy 011 Itching [facility] Repository (20 sources) Bee; Translations: [BEES] Propensity to adverse reactions (disorder) 011 Hives, Swelling [facility] (20 sources) cephalexin; Translations: [CEPHALEXIN] Drug Allergy 003 Anaphylaxis, Hives, Unknown [facility] Rep[facility] (20 sources) cyclobenzaprine; Translations: [CYCLOBENZAPRINE] Drug Allergy 013 Mental Status Change, Unknown [facility] (20 sources) eucalyptus extract; Translations: [EUCALYPTUS] Drug Allergy 008 Hives, Swelling, Anaphylaxis, Shortness of Breath, Other: See Comments, Unknown, Other [facility] (20 sources) minocycline; Translations: [MINOCYCLINE] Drug Allergy 008 GI Upset [facility] Rep[facility] (20 sources) NSAIDs; Translations: [NSAIDS (NON-STEROIDAL ANTI-INFLAMMATORY DRUG)] Propensity to adverse reactions to drug (disorder) 016 Intolerance, Unknown [facility] Rep[facility] (20 sources) tiZANidine; Translations: [TIZANIDINE] Drug Allergy 011 Mental Status Change, Other [facility] Rep[facility] (1 source) OTHER; Translations: [OTHER] Propensity to adverse reactions (disorder) 008 [facility] Rep[facility] (20 sources) Latex Propensity to adverse reactions to drug 009 Swelling, Anaphylaxis, Rash, Shortness of breath [place] (10 sources) Cephalexin; Translations: [Keflex] Drug Allergy Hives [facility] Work Phone: (10 sources) Doxycycline; Translations: [Doxycycline Hyclate TABS] Drug Allergy Diarrhea [facility] Work Phone: (15 sources) HYDROmorphone; Translations: [hydromorphone] Drug Allergy 018 Unknown [facility] Work Phone: (20 sources) Hydroxychloroquine ; Translations: [Plaquenil Sulfate] Drug Allergy 023 GI Upset [facility] (7 sources) Eucalyptus Oil OIL; Translations: [Eucalyptus Oil OIL] Allergy to drug (finding) [facility] Work Phone: (20 sources) Tetracycline; Translations: [tetracycline] Drug Allergy 023 Unknown [facility] (18 sources) Acetaminophen Drug Allergy Itching [facility] (20 sources) Cephalexin; Translations: [cephalexin monohydrate] Drug Allergy Anaphylaxis [facility] (20 sources) Ciprofloxacin; Translations: [CIPROFLOXACIN] Drug Allergy Other: See Comments, Other [facility] (20 sources) HYDROcodone; Translations: [HYDROCODONE] Drug Allergy Itching [facility] (20 sources) tamsulosin; Translations: [TAMSULOSIN] Drug Allergy Other: See Comments, Other, Syncope [facility] (20 sources) NSAIDS (Non-Steroidal Anti-Inflamma; Translations: [NSAIDS (Non-Steroidal Anti-Inflamma] Propensity to adverse reactions GI upset [facility] (20 sources) dilTIAZem; Translations: [DILTIAZEM HCL] Drug Allergy Intolerance, Unknown [facility] Work Phone: (20 sources) nitroglycerin suppositories [Other] Propensity to adverse reactions 008 [facility] Work Phone: (5 sources) Latex Allergy to substance 009 Anaphylaxis, Rash, Shortness of breath, Swelling, Dyspnea [facility] (6 sources) Codeine; Translations: [CODEINE] Drug Allergy 023 Unknown [facility] Work Phone: (6 sources) Sulfamethoxazole / Trimethoprim; Translations: [SULFAMETHOXAZOLE- TRIMETHOPRIM] Drug Allergy 023 [facility] (19 sources) Bee Venom Protein (Honey Bee); Translations: [BEE VENOM PROTEIN (HONEY BEE)] Allergy to substance 011 Hives, Swelling [facility] Work Phone: (9 sources) Hydroxychloroquine ; Translations: [HYDROXYCHLOROQUIN E] Drug Allergy [address] [place] [id number] Repository (1 source) ALLERGIES NOT ON FILE; Translations: [ALLERGIES NOT ON FILE] Propensity to adverse reactions (disorder) [facility] Repository (2 sources) dilTIAZem Drug Allergy 019 [facility] (2 sources) Non-steroidal anti-inflammatory agent Propensity to adverse reactions to drug 020 Dyspepsia [facility] (1 source) adalimumab Drug Allergy 025 Rash [facility] (1 source) Ciprofloxacin Drug Allergy 025 [facility] Repository (1 source) Latex Drug allergy (disorder) 025 [facility] Repository (1 source) tamsulosin Drug Allergy 025 [facility] Repository Medications Current Medications Medication Drug Class(es) Dates Sig (Normalized) Sig (Original) acetaminophen 500 mg oral tablet (20 sources) Start: 02-10-2022 take 2 tablets by mouth every six hours in the evening acetaminophen (TYLENOL EXTRA STRENGTH) 500 mg tablet Take 2 tablets by mouth every 6 hours. 60 tablet 02/11/2022 2:06 PM EST 02/10/2022 Active Start: 02-15-2019 End: 02-15-2019 acetaminophen (TYLENOL) tabl et 1,000 mg Acetaminophen (T YLENOL 8 HOUR PO) Take by mouth as needed. Active Comment on above: Take 2 tablets by mo ut every 6 hours. 0.4 ml adalimumab 100 mg/ml auto-injector (20 sources) Tumor Necrosis Factor David Start: 07-07-2024 HUMIRA,CF, PEN 40 mg/0.4 mL pen kit 07/07/2024 Active Start: 07-04-2024 End: 09-25-2024 Adalimumab (Humira(Cf) Pen) 40 mg/0.4 mL pen injector kit Active 40 mg SC every 2 weeks 4 September 25, 2024 8:08am Crohn's disease Crohn's disease, unspecified, without complications crohn's Start: 06-20-2024 End: 07-04-2024 Adalimumab (Humira(Cf) Pen) 40 mg/0.4 mL pen injector kit Discontinued 40 mg SC EVERY WEEK 4 June 29, 2024 10:38am July 04, 2024 10:33am Crohn's disease Crohn's disease, unspecified, without complications crohn's Start: 04-05-2024 End: 06-20-2024 Adalimumab (Humira(Cf) Pen) 40 mg/0.4 mL pen injector kit Discontinued 40 mg SC every 2 weeks 2 1 April 05, 2024 1:00am June 20, 2024 9:11am Crohn's disease Crohn's disease, unspecified, without complications crohn's Start: 04-05-2024 End: 07-04-2024 Adalimumab (HUMI RA PEN SC) Inject 40 mg under the skin every 14 days. For Chron's Active Adalimumab (HUMI RA PEN SC) Inject under the skin. For Chron's Active [id number] actuat albuterol 0.09 mg/actuat metered dose inhaler (20 sources) beta2-Adrenergic Agonist Start: 10-19-2019 Albut tanvi Sulfate 1 INHALER inhaler Active 1 - 2 NMA INHALATION EVERY 6 HOURS NEEDED as needed for Asthma October 19, 2019 12:00am Start: 10-19-2019 Start: 10-19-2019 take 1 puff(s) by in halation every six hours as needed Albuterol Sulfate Active 1 - 2 PUFF INHALATION EVERY 6 HOURS NEEDED October 19, 2019 12:00am Start: 12-06-2018 take 2 puff(s) by mo uth every four hours as needed albuterol sulfate HFA 108 (90 Base) MCG/ACT inhaler INHALE 2 PUFFS BY MOUTH EVERY 4 HOURS NEEDED 0 12/06/2018 Active Start: 06-22-2013 PROAIR HFA 108 (90 Base) MCG/ACT AERS 2 puff every 4hr as needed dyspnea ALBUTEROL SULFATE [id number] Mia Meehan MD Start: 06-22-2013 PROAIR HFA 108 (90 Base) MCG/ACT AERS 2 puff every 4hr as needed dyspnea ALBUTEROL SULFATE [id number] Mia Meehan MD Start: 12-05-2012 albuterol 90 m cg/actuation inhaler Inhale 2 puffs. 12/05/2012 Active take 2 puff(s) by in halation every six hours as needed for wheezing albuterol (PROVENTIL HFA) 108 (90 Base) MCG/ACT Aero Soln inhaler Inhale 2 puffs every 6 hours as needed for Wheezing. Active End: 07-10-2024 take 1 puff(s) by inhalation every six hours as needed Albuterol 108 (90 Base) MCG/ACT Aero Soln inhaler Inhale 1 puff every 6 hours as needed for Shortness of Breath. 07/10/2024 Discontinued (Duplicate (suppress cancel msg)) Ventolin HFA 108 (90 Base) MCG/ACT Inhalation Aerosol Solution Quantity: 0 Refills: 0 Ordered: 20-Sep-2018 DO Active Comment on above: Inhale 2 Puffs as in structed. albuterol 0.833 mg/ml / ipratropium bromide 0.167 mg/ml inhalation solution (5 sources) Anticholinergic, beta2-Adrenergic Agonist Start: 07-20-19 take 1 mL by inhalation every six hours as needed for wheezing Ipratropium-Albutero l 0.5 mg-3 mg(2.5 mg base)/3 mL solution for nebulization Active 3 mL INHALATION EVERY 6 HOURS as needed for shortness of breath or wheezing 180 0 July 19, 2024 5:08am Start: 07-19-2024 atropine sulfate 0.025 mg / diphenoxylate hydrochloride 2.5 mg oral tablet (3 sources) Anticholinergic, Cholinergic Muscarinic Antagonist, Antidiarrheal Start: 08-05-2022 End: 04-15-2023 take 1-2 tablets by mouth every four to six hours as needed, then take 8 tablets by mouth once daily as needed diphenoxylate-atropine (Lomotil) 2.5-0.025 mg tablet Take 1-2 tablets by mouth. EVERY 4-6 HRS NEEDED MAX 8 TABS DAILY 0 08/05/2022 04/15/2023 Discontinued (Therapy completed) azelaic acid 0.15 mg/mg topical gel (20 sources) Start: 07-29-2023 Azelaic Acid (FINACEA) 15 % gel Indications: Acne excoriee Gently massage a thin film to face twice daily, in the morning and evening 50 g 3 07/29/2023 Active Start: 05-27-2017 End: 07-21-2017 Azelaic Acid 15 % gel Discon tinued TOPICAL 50 30 0 May 27, 2017 1:00am July 21, 2017 11:39am Start: 05-27-2017 End: 07-21-2017 Start: 05-27-2017 End: 07-21-2017 Azelaic Acid Discontinued TO PICAL 50 30 May 27 2018 1:00am July 21, 2017 11:39am FINACEA 15 % GEL apply to face AZELAIC ACID [id number] Colleen Dale [employer] baclofen vaginal suppository 10 mg (CPD) (20 sources) Start: 12-12-2021 baclofen vagin al suppository 10 mg (CPD) Unwrap and inserty 1 Suppository vaginally once daily as directed. 30 Suppository 5 12/17/2021 2:29 PM EDT 12/12/2021 Active Start: 12-12-2021 baclofen vagin al suppository 10 mg (CPD) Unwrap and inserty 1 Suppository vaginally once daily as directed. 30 Suppository 5 12/12/2021 Active Comment on above: Unwrap and inserty 1 Suppository vaginally once daily as directed. belladonna alkaloids 16.2 mg / opium 30 mg rectal suppository (4 sources) Start: 01-04-2020 belladonna alkaloids-opium 16.2 mg-30 mg rectal suppository Active 1 SUPP RC THREE TIMES A DAY January 04, 2020 benzoyl peroxide 100 mg/ml topical lotion (20 sources) Start: 05-19-2022 End: 04-15-2023 Acne Medication 10 % lotion lotion Apply topically 2 times a day. to affected area 0 05/21/2022 04/15/2023 Discontinued (Duplicate order) Start: 2020 End: 09-30-2021 Benzoyl Peroxide 5 % externa l wash Indications: Seborrheic dermatitis Apply to affected areas daily 236 mL 2 2020 09/30/2021 Discontinued Start: 11-17-2017 benzoyl peroxi de 5 % external wash 1 Application. 11/17/2017 Active Comment on above: Apply to affected ar eas daily Apply to affected ar ea twice daily. calcium chloride 0.0014 meq/ml / potassium chloride 0.004 meq/ml / sodium chloride 0.103 meq/ml / sodium lactate 0.028 meq/ml injectable solution (1 source) Start: 02-15-2019 lactated ringers infusion clascoterone (WINLEVI) 1 % crea (4 sources) Start: 10-29-2023 clascoterone (WINLEVI) 1 % crea Indications: Acne vulgaris After the skin is dry, apply a thin uniform layer twice per day, in the morning and the evening, to the affected area. Avoid accidental transfer of cream into eyes, mouth or other mucous membranes. If contact with mucous membranes occurs, rinse thoroughly with water. 60 g 3 10/29/2023 Active clascoterone 1 % cream (11 sources) Start: 12-31-2021 clascoterone 1 % cream Apply 1 Application topically twice a day. 12/31/2021 Active Start: 12-31-2021 clascoterone 1 % cream Apply 1 Application topically twice a day. 0 12/31/2021 Active clindamycin 0.01 mg/mg topical gel (20 sources) Lincosamide Antibacterial Start: 07-29-2023 clindamycin (CLEOCIN-T) 1 % gel Apply a thin film 1-2 times daily to affected areas. Use enough to cover the entire affected area lightly 60 g 3 07/29/2023 Active Start: 07-05-2020 End: 09-30-2021 clindamycin phosphate 1 % gl qd Apply to affected area once daily. 75 mL 2 07/05/2020 09/30/2021 Discontinued Start: 05-19-2019 Clindamycin Ph osphate 1 % External Gel Quantity: 0 Refills: 0 Ordered: 19-May-2019 DO Start : 19-May-2019 Active End: 07-10-2024 Clindamycin 1 % Solution Nabor ly 1 Application topically 2 times daily. use thin film on affected area Active clindamycin (Cli ndagel) 1 % gel Apply topically. Active End: 09-27-2013 CLEOCIN-T SOLN (CLINDAMYCIN PHOSPHATE SOLN) 1% apply 2 times daily CLEOCIN-T SOLN (CLINDAMYCIN PHOSPHATE SOLN) 1% Mabel Pearce MD CLEOCIN-T SOLN ( CLINDAMYCIN PHOSPHATE SOLN) 1% apply 2 times daily CLEOCIN-T SOLN (CLINDAMYCIN PHOSPHATE SOLN) 1% Mabel Pearce MD End: 09-27-2013 CLEOCIN-T SOLN (CLINDAMYCIN PHOSPHATE SOLN) 1% apply 2 times daily CLEOCIN-T SOLN (CLINDAMYCIN PHOSPHATE SOLN) 1% Mabel Pearce MD Comment on above: Apply to affected ar ea once daily. clobetasol propionate 0.0005 mg/mg topical ointment (20 sources) Corticosteroid Start: 09-30-2021 clobetasol (Temovate) 0.05 % ointment Apply topically every 12 hours if needed. Apply to affected area twice daily as needed (for severe flares of the dermatitis on the hands and feet.). For flares on the hands 09/30/2021 Active Start: 07-14-2021 End: 03-23-2023 clobetasol (TEMOVATE) 0.05 % ointment Apply to affected area twice daily as needed (for severe flares of the dermatitis on the hands and feet.). For flares on the hands 60 g 09/30/2021 03/23/2023 Discontinued Start: 11-25-2020 End: 03-23-2023 Clobetasol Propionate (CLOBE X) 0.05 % sham Apply to affected area once daily as needed (for scalp irritation). Apply to dry scalp, leave on for 15 minutes and then wash off. 118 mL 3 11/25/2020 03/23/2023 Discontinued Comment on above: Apply to affected ar ea once daily as needed (for scalp irritation). Apply to dry scalp, leave on for 15 minutes and then wash off. Apply to affected ar ea twice daily as needed. For flares on the hands Apply to affected ar ea twice daily as needed (for severe flares of the dermatitis on the hands and feet.). For flares on the hands cyanocobalamin, vitamin B-12, (VITAMIN B-12 ORAL) (20 sources) cyanocobalamin, vitamin B-12, (VITAMIN B-12 ORAL) Take by mouth. Active cyanocobalamin, vitamin B-12, (VITAMIN B-12 ORAL) Take by mouth. 0 Active Comment on above: Take by mouth. dexamethasone 6 mg oral tablet (20 sources) Corticosteroid Start: 05-04-2021 dexamethasone 6 mg oral tablet 0 Refill(s) Start Date: 05/04/21 Status: Ordered Repeat number: 1 Start: 09-10-2020 End: 09-17-2020 take 1 tablet by mouth twice daily Dexamethasone 2 mg tablet Discontinued 2 mg PO TWICE A DAY 14 7 0 September 10, 2020 12:00am September 16, 2020 12:00am September 17, 2020 12:01am diazePAM 5 mg oral tablet (20 sources) Benzodiazepine Start: 04-20-2016 End: 04-15-2023 take 1 tablet by mouth every six hours as needed diazePAM (Valium) 5 mg tablet Take 1 tablet (5 mg) by mouth every 6 hours if needed. 0 04/20/2016 04/15/2023 Discontinued (Therapy completed) Start: 10-09-2015 take 0.5 tablet by m outh once daily DIAZEPAM 5 MG TABS 1/2 tablet by mouth daily DIAZEPAM [id number] Mia Meehan MD take 2 mg by mouth e very six hours as needed diazepam 5 MG Tab tablet Take 2 mg by mouth every 6 hours as needed for Anxiety. Active diclofenac sodium 50 mg delayed release oral tablet (20 sources) Nonsteroidal Anti-inflammatory Drug Start: 05-21-2022 End: 04-15-2023 take 1 tablet by mouth three times daily as needed for pain diclofenac (Voltaren) 50 mg EC tablet Take 1 tablet (50 mg) by mouth 3 times a day as needed (pain). 0 05/21/2022 04/15/2023 Discontinued (Therapy completed) Start: 12-07-2014 End: 12-17-2014 take 1 tablet by mouth three times daily as needed DICLOFENAC SODIUM 50 MG TBEC One tablet by mouth three times daily as needed DICLOFENAC SODIUM [id number] Rudy Branch DO 1 ml diphenhydrAMINE hydrochloride 50 mg/ml cartridge (1 source) Histamine-1 Receptor Antagonist Start: 02-15-2019 End: 02-15-2019 diphenhydrAMINE (BENADRYL) injection 12.5 mg docusate sodium 100 mg oral capsule (20 sources) Start: 02-15-2019 End: 02-15-2019 take 1 capsule by mouth twice daily as needed docusate sodium (Colace) 100 mg capsule Take 1 capsule (100 mg) by mouth 2 times a day as needed. 02/15/2019 Active Comment on above: Take 100 mg by mouth twice daily as needed. drospirenone / Ethinyl Estradiol (3 sources) Progestin, Estrogen Start: 10-17-2018 End: 04-15-2023 drospirenone-ethinyl estradioL (Rupa, Ocella) 3-0.03 mg tablet Take 1 tablet by mouth. 0 10/17/2018 04/15/2023 Discontinued (Therapy completed) Start: 10-17-2018 drospirenone-e thinyl estradioL (Rupa, Ocella) 3-0.03 mg tablet Take 1 tablet by mouth. 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 1 Each 0 10/10/2021 10/11/2021 Comment on above: For CT ENTEROGRAPHY W IVCON order Administer, As Directed One Time Only, via Oral, Rectal, both Oral and Rectal, Enteric Tube, Stoma or Indwelling Catheter, Enteric Contrast as designated per enteric contrast guidelines. For CT CHESTABD/PEL W IVCON Routine order Administer, As Directed One Time Only, via Oral, Rectal, both Oral and Rectal, Enteric Tube, Stoma or Indwelling Catheter, Enteric Contrast as designated per enteric contrast guidelines [id number] 0.3 ml EPINEPHrine 1 mg/ml auto-injector (20 sources) alpha-Adrenergic Agonist, beta-Adrenergic Agonist, Catecholamine Start: 10-02-2021 EPINEPHrine (EPIPEN 2-SINCERE) 0.3 mg/0.3 mL auto-injector Indications: anaphylaxis Inject 0.3 mL intramuscularly as needed (Inject in thigh as needed for anaphylaxis and call 911). GENERIC OKAY 2 Each 3 10/02/2021 Active Start: 10-02-2021 EPINEPHrine 0. 3 mg/0.3 mL injection syringe Inject 0.3 mL (0.3 mg) into the muscle 1 time if needed for anaphylaxis. 10/02/2021 Active Start: 10-02-2021 EPINEPHrine (E pipen) 0.3 MG/0.3ML injection syringe Inject 0.3 mg into the shoulder, thigh, or buttocks. 0 10/02/2021 Active Comment on above: Inject 0.3 mL intram uscularly as needed (Inject in thigh as needed for anaphylaxis and call 911). GENERIC OKAY estradiol 0.1 mg/ml vaginal cream (3 sources) Estrogen Start: 11-05-2023 estradiol (Estrace) 0.01 % (0.1 mg/gram) vaginal cream Indications: Vaginal atrophy Dime to nickel size amount on your finger and apply to directed area. 3 nights a week at bedtime 42.5 g 3 11/05/2023 Active estradiol 0.1 MG /GM cream Insert 1 Application vaginally three times a week. Active 2 ml fentaNYL 0.05 mg/ml injection (2 sources) Opioid Agonist Start: 02-15-2019 fentaNYL (SUBL IMAZE) injection 50 mcg Start: 02-15-2019 fentaNYL (SUBL IMAZE) injection 25 mcg fluconazole 150 mg oral tablet (20 sources) Azole Antifungal Start: 01-19-2024 Fluconazole ( Diflucan) 150 MG tablet Indications: Vaginal yeast infection Take 1 tablet by mouth followed by an additional tablet 72 hours later. 2 tablet 01/19/2024 Active Start: 11-05-2023 End: 11-05-2023 take 1 tablet by mouth once fluconazole (Diflucan) 150 mg tablet Indications: Yeast infection of the skin Take 1 tablet (150 mg) by mouth 1 time for 1 dose. 1 tablet 3 11/05/2023 11/05/2023 Active Start: 07-06-2018 End: 07-11-2018 Fluconazole 150 mg tablet Di scontinued 150 mg PO .COMPLEX 2 0 July 06, 2018 12:00am July 11, 2018 9:02am 150 mg PO take one po now and repeat in 3 days Start: 05-27-2017 End: 07-21-2017 Fluconazole 200 mg tablet Di scontinued PO 21 21 0 May 27, 2017 1:00am July 21, 2017 11:39am Start: 05-27-2017 End: 07-21-2017 Start: 05-27-2017 End: 07-21-2017 Fluconazole Discontinued PO 21 May 27, 2017 1:00am July 21, 2017 11:39am Start: 06-22-2013 End: 10-02-2014 FLUCONAZOLE 150 MG TABS 2013 FLUCONAZOLE [id number] Mabel Pearce MD fluocinonide 0.5 mg/ml topical cream (3 sources) Corticosteroid Start: 03-09-2018 End: 04-15-2023 fluocinonide 0.05 % cream 1 Application. 0 03/09/2018 04/15/2023 Discontinued (Therapy completed) flurandrenolide 0.5 mg/ml topical lotion (20 sources) Corticosteroid Start: 06-29-2018 End: 04-15-2023 flurandrenolide (CORDRAN) 0.05 % lotion Indications: Eczema, unspecified type , Atopic dermatitis and related condition Apply to affected area twice daily. As needed. 120 mL 1 03/26/2021 Active Comment on above: Apply to affected ar ea twice daily. As needed. fluticasone propionate 0.05 mg/actuat metered dose nasal spray (20 sources) Corticosteroid Start: 09-09-2018 End: 04-15-2023 take 1 spray(s) nasal route once daily as needed fluticasone (Flonase) 50 mcg/actuation nasal spray Administer 1 spray into affected nostril(s) once daily as needed. 0 09/09/2018 04/15/2023 Discontinued (Therapy completed) Start: 09-09-2018 fluticasone (F LONASE) 50 MCG/ACT nasal spray 1 spray by Nasal route 0 09/09/2018 Active Start: 02-08-2018 End: 02-10-2018 Fluticasone Propionate (Saulo rgy Relief (Fluticasone)) 50 mcg/actuation spray,suspension Discontinued 1 NMA INTRANASAL DAILY February 08, 2018 1:00am February 10, 2018 3:24pm Start: 02-08-2018 End: 02-10-2018 Start: 02-08-2018 End: 02-10-2018 Fluticasone Propionate (Saulo rgy Relief (Fluticasone)) 50 mcg/actuation spray,suspension Discontinued 1 SPRAY INTRANASAL DAILY February 08, 2018 1:00am February 10, 2018 3:24pm Start: 12-27-2013 take 2 spray(s) nasa l route twice daily FLUTICASONE PROPIONATE 50 MCG/ACT SUSP 2 spray/nostril twice daily FLUTICASONE PROPIONATE [id number] Mia Meehan MD End: 07-10-2024 fluticasone 50 MCG/ACT Suspe nsion nasal spray 1 spray by Nasal route daily as needed. 07/10/2024 Discontinued (Patient Preference) gabapentin 100 mg oral capsule (20 sources) Anti-epileptic Agent Start: 03-23-2023 take 2 capsules by mouth three times daily gabapentin (NEURONTIN) 100 mg capsule Take 2 capsules by mouth three times a day for 30 days. 90 capsule 03/23/2023 Active Start: 02-24-2022 End: 01-05-2023 take 1 capsule by mouth once daily gabapentin (NEURONTIN) 300 mg capsule Indications: Post-op pain Take 1 capsule by mouth once daily for 60 days. 30 capsule 1 02/24/2022 01/05/2023 Discontinued take 1 capsule by mo [facility] three times daily as needed gabapentin (Neurontin) 300 mg capsule Take 1 capsule (300 mg) by mouth 3 times a day as needed. Active Comment on above: Take 1 capsule by mo [facility] once daily for 60 days. Take 2 capsules by [facility] three times a day for 30 days. 1 ml hydrALAZINE hydrochloride 20 mg/ml injection (1 source) Arteriolar Vasodilator Start: 02-15-2019 hydrALAZINE (APRESOLINE) injection 5 mg Hydrocortisone / Lidocaine (9 sources) Antiarrhythmic, Corticosteroid, Amide Local Anesthetic Start: 07-03-2024 Hydrocortisone 2.5% / Lidocaine 5% Ointment (Cmpd) ointment Active 0 .Route 30 0 July 03, 2024 4:21pm instill a pea sized amount into the rectum BID PRN for rectal pain Start: 07-03-2024 Hydrocortisone 2.5% / Lidocaine 5% Ointment (Cmpd) ointment Active 0 .Route 30 July 03, 2024 4:21pm instill a pea sized amount into the rectum BID PRN for rectal pain Start: 07-03-2024 End: 07-03-2024 Hydrocortisone 2.5% / Lidoca ine 5% Ointment (Cmpd) ointment Discontinued 0 .Route 30 0 July 03, 2024 12:00am July 03, 2024 4:21pm instill a pea sized amount into the rectum BID PRN for rectal pain Start: 07-03-2024 End: 07-03-2024 Hydrocortisone 2.5% / Lidoca ine 5% Ointment (Cmpd) ointment Discontinued 0 .Route 30 July 03, 2024 12:00am July 03, 2024 4:21pm instill a pea sized amount into the rectum BID PRN for rectal pain Start: 03-31-2024 End: 05-29-2024 Hydrocortisone 2.5% / Lidoca ine 5% Ointment (Cmpd) ointment Discontinued 0 .Route 1 March 31, 2024 1:00am May 29, 2024 5:14pm As directed Start: 03-31-2024 End: 05-29-2024 Hydrocortisone 2.5% / Lidoca ine 5% Ointment (Cmpd) ointment Discontinued 0 .Route 1 March 31, 2024 1:00am May 29, 2024 5:14pm As directed 1 ml HYDROmorphone hydrochloride 1 mg/ml cartridge (2 sources) Opioid Agonist Start: 02-15-2019 HYDROmorphone (DILAUDID) injection 0.5 mg Start: 02-15-2019 HYDROmorphone (DILAUDID) injection 0.25 mg hyoscyamine sulfate 0.125 mg sublingual tablet (8 sources) Start: 04-24-2024 End: 04-27-2024 Levsin SL 0.125 mg sublingua l tablet Dose : 0.25 mg = 2 tab(s), Sublingual, q6hr, PRN abdominal discomfort, # 24 tab(s), 0 Refill(s) Start Date: 04/24/24 Stop Date: 04/27/24 Status: Ordered Quantity: 24.0 Unit: tab(s) Repeat number: 1 Start: 10-15-2022 End: 10-22-2022 Levsin 0.125 mg oral tablet Dose : 0.25 mg = 2 tab(s), Oral, QID, # 28 tab(s), 0 Refill(s) Start Date: 10/15/22 Stop Date: 10/22/22 Status: Ordered Quantity: 28.0 Unit: tab(s) Repeat number: 1 hyoscyamine sulfate 0.12 mg / methenamine 118 mg / methylene blue 10 mg / phenyl salicylate 36 mg / sodium phosphate, monobasic 40.8 mg oral capsule (13 sources) Oxidation-Reduction Agent Start: 04-15-2023 End: 06-14-2023 take 1 capsule by mouth once daily as needed for muscle spasms methen-m.blue-s.cbdi-qeylt-ifv (UribeL) 118-10-40.8-36 mg capsule Indications: Bladder spasm Take 1 capsule by mouth once daily as needed (PRN bladder spasms). 30 capsule 1 04/15/2023 06/14/2023 Active Start: 11-12-2020 Uribel 118 MG Oral Capsule TAKE 1 CAPSULE 3 times daily May take one capsule up to 3 x per day as needed PRN Quantity: 30 Refills: 2 Ordered: 12-Nov-2020 Rossy Ma Start : 12-Nov-2020 Active ibuprofen 600 mg oral tablet (20 sources) Nonsteroidal Anti-inflammatory Drug Start: 02-10-2022 take 1 tablet by mouth every six hours at mealtime ibuprofen (MOTRIN) 600 mg tablet Take 1 tablet by mouth every 6 hours. Take with food. 60 tablet 02/11/2022 2:06 PM EST 02/10/2022 Active IBUPROFEN PM TAB S (IBUPROFEN-DIPHENHYDRAMINE CIT TABS) 600 M one tablet every 6 hrs as needed IBUPROFEN PM TABS (IBUPROFEN-DIPHENHYDRAMINE CIT TABS) 600 M Mabel Pearce MD Comment on above: Take 1 tablet by rita th every 6 hours. Take with food. 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 Discontinue saline lock post exam. If Pt. has a central line or IVAD, may access for administration according to line specific nursing protocol. Once exam is complete flush line and de-access according to line specific nursing protocol in the CT contrast administration guidelines link. 1 Each 0 03/16/2022 03/17/2022 Active Start: 10-10-2021 End: 10-11-2021 iv contrast (will be provide d with radiology test) CT Enterography W Inject, intravenously, once for 1 dose.No IV access, insert saline lock prior to the beginning of sedation, infusion, injection of imaging exam. Discontinue saline lock post exam. If Pt. has a central line or IVAD, may access for administration according to line specific nursing protocol. Once exam is complete flush line and de-access according to line specific nursing protocol in the CT contrast administration guidelines link. 1 Each 0 10/10/2021 10/11/2021 Start: 06-26-2021 End: 06-27-2021 iv contrast (will be provide d with radiology test) MRI Female Pelvis Inject, intravenously, once for 1 dose. No IV access, insert saline lock prior to the beginning of sedation, infusion, injection of imaging exam. Discontinue saline lock post exam. If Pt has a central line or IVAD, may access for administration according to line specific nursing protocol. Once exam is complete flush line and de-access according to line specific nursing protocol in the MR contrast administration guidelines link. 1 Each 0 06/26/2021 06/27/2021 Active Comment on above: MRI Female Pelvis In ject, intravenously, once for 1 dose. No IV access, insert saline lock prior to the beginning of sedation, infusion, injection of imaging exam. Discontinue saline lock post exam. If Pt has a central line or IVAD, may access for administration according to line specific nursing protocol. Once exam is complete flush line and de-access according to line specific nursing protocol in the MR contrast administration guidelines link. CT Enterography W In ject, intravenously, once for 1 dose.No IV access, insert saline lock prior to the beginning of sedation, infusion, injection of imaging exam. Discontinue saline lock post exam. If Pt. has a central line or IVAD, may access for administration according to line specific nursing protocol. Once exam is complete flush line and de-access according to line specific nursing protocol in the CT contrast administration guidelines link. CT Chest ABD/PEL-Inj ect, intravenously, once for 1 dose.No IV access, insert saline lock prior to the beginning of sedation, infusion, injection of imaging exam. Discontinue saline lock post exam. If Pt. has a central line or IVAD, may access for administration according to line specific nursing protocol. Once exam is complete flush line and de-access according to line specific nursing protocol in the CT contrast administration guidelines link. ketorolac tromethamine 10 mg oral tablet (3 sources) Nonsteroidal Anti-inflammatory Drug, Cyclooxygenase Inhibitor Start: 11-28-19 23 End: 04-15-19 24 take 1 tablet by mouth every six hours as needed ketorolac (Toradol) 10 mg tablet Take 1 tablet (10 mg) by mouth every 6 hours if needed for severe pain (7 - 10). 0 11/27/2022 04/15/2023 Discontinued (Therapy completed) 4 ml labetalol hydrochloride 5 mg/ml cartridge (1 source) beta-Adrenergic David Start: 02-16-20 19 labetalol (NORMODYNE;TRANDATE) injection 5 mg lidocaine 2% topical gel with applicator (1 source) Start: 05-04-19 22 lidocaine 2% topical gel with applicator 0 Refill(s) Start Date: 05/04/21 Status: Ordered loratadine 10 mg oral tablet (20 sources) Start: 10-16-19 23 take 1 tablet by mouth once loratadine (CLARITIN) 10 mg tablet Take 1 tablet by mouth every afternoon. 10/15/2022 Active Comment on above: Take 1 tablet by rita th every afternoon. LORATADINE ALLERGY RELIEF PO (2 sources) LORATADINE ALLER GY RELIEF PO Take by mouth daily. Takes either loratadine or cetirizine Active LORATADINE ALLER GY RELIEF PO Take by mouth. Active Melatonin (1 source) MELATONIN PO Mohsen e by mouth at bedtime as needed. Active 1 ml meperidine hydrochloride 25 mg/ml cartridge (1 source) Opioid Agonist Start: 02-15-2019 meperidine (DEMEROL) injection 12.5 mg MULTI-VITAMIN ORAL (20 sources) take 2 tablets by mouth once daily MULTI-VITAMIN ORAL Take by mouth once daily. 2 tablets daily Active take 2 tablets by mouth once new ly MULTI-VITAMIN ORAL Take by mouth once daily. 2 tablets daily 0 Active Comment on above: Take by mouth once d aily. 2 tablets daily Multiple Vitamin (MULTIVITAMIN) Cap (2 sources) take 1 capsule by mouth once daily Multiple Vitamin (MULTIVITAMIN) Cap Take 1 capsule by mouth daily. Active multivit-minerals/foli c acid (MULTIVITAMIN GUMMIES ORAL) (11 sources) take 1 tablet by mouth once daily multivit-minerals/fol ic acid (MULTIVITAMIN GUMMIES ORAL) Take 1 tablet by mouth once daily. Active take 1 tablet by mouth once sienna y multivit-minerals/folic acid (MULTIVITAMIN GUMMIES ORAL) Take 1 tablet by mouth once daily. 0 Active multivitamin (20 sources) Start: 12-13-2017 take 1 tablet by rita th once daily Multivitamin Active 1 TABLET PO DAILY December 13, 2017 10:32am Start: 12-13-2017 take 1 tablet by rita th once daily Multivitamin Active 1 TABLET PO DAILY December 12, 2017 11:00pm Start: 12-13-2017 take 1 tablet by rita once daily Multivitamin Active 1 TABLET PO DAILY December 13, 2017 12:00am take 1 tablet by rita once daily MULTI-VITAMIN TABS One tablet by mouth daily MULTIPLE VITAMIN [id number] Mia Meehan MD take 1 tablet by rita once daily MULTI-VITAMIN TABS One tablet by mouth daily MULTIPLE VITAMIN [id number] Mabel Pearce MD Multivitamin tablet (5 sources) Start: 12-13-2017 Multivitamin t ablet Active 1 {tbl} PO DAILY December 13, 2017 12:00am [id number] acid-lutein 200-137.5 mcg tablet,chewable (3 sources) End: 04-15-2023 [id number]-cpi-ivoxr acid-lutein 200-137.5 mcg tablet,chewable Chew 1 tablet once daily. 0 04/15/2023 Discontinued (Duplicate order) wb-yqs-akupn aci d-lutein 200-137.5 mcg tablet,chewable Chew 1 tablet once daily. 0 Active nystatin 100 unt/mg topical powder (20 sources) Polyene Antifungal Start: 01-23-2020 End: 09-16-2022 nystatin (MYCOSTATIN) powder APPLY TO AFFECTED AREA TWICE DAILY. 60 g 1 09/16/2022 Active Comment on above: Apply 1 application to affected area twice daily. APPLY TO AFFECTED AREA APPLY TO AFFECTED AR EA TWICE DAILY. omeprazole 40 mg oral tablet (20 sources) Proton Pump Inhibitor Start: 12-15-2018 take 1 dose by mouth once daily omeprazole Dose : 40 mg =, Oral, qDay, 0 Refill(s) Start Date: 12/15/18 Status: Ordered Repeat number: 1 Start: 10-31-2018 End: 09-12-2019 Omeprazole 40 mg capsule,del ayed release(DR/EC) Discontinued 20 mg PO DAILY October 31, 2018 12:00am September 12, 2019 2:41pm Start: 10-31-2018 End: 09-12-2019 take 20 mg by mouth once daily Omeprazole Discontinued 20 MG PO DAILY October 31, 2018 12:00am September 12, 2019 2:41pm Start: 02-08-2018 End: 02-10-2018 take 1 capsule by mouth once daily Omeprazole 20 mg capsule,delayed release(DR/EC) Discontinued 20 mg PO DAILY February 08, 2018 1:00am February 10, 2018 3:25pm Start: 11-30-2016 End: 02-08-2018 Omeprazole 40 MG capsule Dis continued 20 mg PO DAILY November 30, 2016 12:00am February 08, 2018 3:34pm Start: 11-30-2016 End: 02-08-2018 take 20 mg by mouth once daily Omeprazole Discontinued 20 MG PO DAILY November 30, 2016 12:00am February 08, 2018 3:34pm Start: 10-22-2016 take 2 tablets by [facility] once daily PRILOSEC 20 MG CPDR Two tablets by mouth daily OMEPRAZOLE [id number] Mia Meehan MD Start: 12-27-2013 End: 10-02-2014 take 1 tablet by mouth once daily OMEPRAZOLE 20 MG TBEC One tablet by mouth daily OMEPRAZOLE [id number] Mabel Pearce MD Start: 12-27-2013 take 1 capsule by [facility] once daily OMEPRAZOLE 40 MG CPDR 1 capsule by mouth daily OMEPRAZOLE [id number] Mia Meehan MD End: 10-02-2014 take 1 tablet by mouth once daily HM OMEPRAZOLE 20 MG TBEC One tablet by mouth daily OMEPRAZOLE [id number] Rudy Branch DO ondansetron 4 mg oral tablet, disintegrating (1 source) Start: 05-04-2021 ondansetron 4 mg oral tablet, disintegrating 0 Refill(s) Start Date: 05/04/21 Status: Ordered pantoprazole 40 mg delayed release oral tablet (20 sources) Proton Pump Inhibitor Start: 04-27-2024 End: 05-29-2024 take 1 tablet by mouth once daily 30 minutes before breakfast Pantoprazole 40 mg tablet,delayed release (DR/EC) Active 40 mg PO daily 90 May 29, 2024 4:07pm take 30 minutes before breakfast every day Start: 01-27-2024 End: 04-05-2024 take 1 tablet by mouth once daily Pantoprazole 20 mg tablet,delayed release (DR/EC) Discontinued 20 mg PO daily 60 January 27, 2024 12:00am April 05, 2024 11:37am Start: 11-12-2020 take 1 tablet by rita th twice daily pantoprazole (Protonix) 20 mg EC tablet Take 1 tablet (20 mg) by mouth 2 times a day. 11/12/2020 Active Start: 09-12-2019 End: 01-27-2024 take 1 tablet by mouth once daily Pantoprazole 40 mg tablet,delayed release (DR/EC) Discontinued 0 .ROUTE .COMPLEX 30 0 July 02, 2020 1:17pm August 08, 2020 8:59am TAKE 1 TABLET BY MOUTH EVERY DAY take 1 dose by mouth once daily before breakfast pantoprazole Sodium 40 MG Pack Take 1 packet by mouth every morning before breakfast. Active Comment on above: Take 40 mg by mouth once daily. Take 40 mg by mouth once daily. On hold currently d/t trying new med potassium chloride 20 meq extended release oral tablet (20 sources) Start: 08-06-2020 Start: 08-06-2020 take 20 mEq by mouth twice daily Potassium Chloride Active 20 MEQ PO TWICE A DAY August 06, 2020 12:00am Start: 12-15-2018 take 40 doses by mouth once Kl or-Con M20 Dose : 40 mEq =, Oral, Once, 0 Refill(s) Start Date: 12/15/18 Status: Ordered Repeat number: 1 Start: 12-15-2018 take 40 doses by mouth once Kl or-Con M20 Dose : 40 mEq =, Oral, Once, 0 Refill(s) Start Date: 12/15/18 Status: Ordered Start: 01-12-2018 End: 02-08-2018 take 40 mEq by mouth once daily Potassium Chloride 20 MEQ packet Discontinued 40 meq PO DAILY January 12, 2018 12:00am February 08, 2018 3:27pm Start: 01-12-2018 End: 02-08-2018 take 40 mEq by mouth once daily Potassium Chloride Dis continued 40 MEQ PO DAILY January 12, 2018 12:00am February 08, 2018 3:27pm Start: 03-03-2017 End: 12-13-2017 take 1 tablet by mouth once daily Potassium Chloride 10 tablet extended release Discontinued 10 meq PO DAILY March 03, 2017 1:00am December 13, 2017 10:30am Start: 03-03-2017 End: 04-15-2023 End: 07-10-2024 take 1 dose by mouth twice daily potassium chloride 20 MEQ Pack Take 1 packet by mouth 2 times daily. 07/10/2024 Discontinued (Formulary change) Comment on above: Take 2 tablets by mo [facility] once daily. potassium citrate 10 meq extended release oral tablet (6 sources) Start: 07-19-2024 take 1 tablet by mouth twice daily Potassium Citrate 10 mEq (1,080 mg) tablet extended release Active 10 meq PO TWICE A DAY July 19, 2024 12:00am Start: 06-15-2024 [facility] potassium citrate 10 MEQ (1080 MG) Tab CR Take 1 tablet by mouth daily. 06/15/2024 Active 3 ml sodium chloride 9 mg/ml injection (2 sources) Start: 02-15-2019 sodium chloride flush 0.9 % injection 10 mL sulfamethoxazole 800 mg / trimethoprim 160 mg oral tablet (20 sources) Dihydrofolate Reductase Inhibitor Antibacterial, Sulfonamide Antimicrobial Start: 11-14-2022 End: 11-21-2022 take 1 tablet by mouth twice daily sulfamethoxazol e-trimethoprim (BACTRIM DS) 800-160 mg per tablet Indications: Urinary frequency , Urinary urgency Take 1 tablet by mouth twice daily for 7 days. 14 tablet 0 11/14/2022 11/21/2022 Active Start: 02-09-2022 End: 02-16-2022 take 1 tablet by mouth twice daily sulfamethoxazole-trimethoprim (BACTRIM D S) 800-160 mg per tablet Indications: Urinary urgency , Urinary frequency Take 1 tablet by mouth twice daily for 7 days. 14 tablet 0 02/09/2022 02/16/2022 Start: 12-31-2021 End: 01-10-2022 take 1 tablet by mouth twice daily sulfamethoxazole-trimethoprim (BACTRIM D S) 800-160 mg per tablet Take 1 tablet by mouth twice daily for 10 days. 20 tablet 0 12/31/2021 01/10/2022 Active Start: 07-22-2020 End: 08-06-2020 Sulfamethoxazole-Trimethopri m 1 TABLET tablet Discontinued 1 {tbl} PO TWICE A DAY July 22, 2020 12:00am August 06, 2020 2:27pm Start: 07-22-2020 End: 08-06-2020 Start: 07-22-2020 End: 08-06-2020 take 1 tablet by mouth twice daily Sulfamethoxazole-Trimethoprim Discontinu ed 1 TABLET PO TWICE A DAY July 22, 2020 12:00am August 06, 2020 2:27pm Start: 11-19-2016 BACTRIM DS 800 -160 MG TABS 1 tablet twice daily SULFAMETHOXAZOLE-TRIMETHOPRIM [id number] Adarsh BLANTON Start: 10-22-2016 take 1 tablet by rita th twice daily SULFAMETHOXAZOLE-TRIMETHOPRIM 400-80 MG TABS One tablet by mouth twice daily SULFAMETHOXAZOLE-TRIMETHOPRIM [id number] Mia Meehan MD Comment on above: Take 1 tablet by rita th twice daily for 10 days. Take 1 tablet by rita th twice daily for 7 days. SUMAtriptan 50 mg oral tablet (13 sources) Serotonin-1b and Serotonin-1d Receptor Agonist Start: 05-04-2021 SUMAtriptan 50 mg oral tablet 0 Refill(s) Start Date: 05/04/21 Status: Ordered Repeat number: 1 Start: 04-22-2021 take 2 tablets by mo ut once daily as needed Sumatriptan Succinate Active 50 MG PO .COMPLEX April 22, 2021 1:00am 50 mg PO every two hours as needed for headache up to two tablets per day tretinoin 0.25 mg/ml topical cream (20 sources) Retinoid Start: 07-29-2023 tretinoin (RET IN-A) 0.025 % topical cream Indications: Acne excoriee Apply pea-sized amount to entire face once nightly. Begin 3 times weekly and and gradually increase frequency to nightly as tolerated. 45 g 3 07/29/2023 Active Start: 09-11-2022 End: 07-29-2023 tretinoin (RETIN-A) 0.05 % c ream Apply pea-sized amount to entire face once nightly. Begin 3 times weekly and and gradually increase frequency to nightly as tolerated. 45 g 3 09/11/2022 07/29/2023 Discontinued Start: 08-06-2020 End: 01-23-2021 Tretinoin 0.025 % gel Discon tinued 1 NMA TOPICAL AT BEDTIME August 06, 2020 12:00am January 23, 2021 1:42pm Start: 08-06-2020 End: 01-23-2021 Start: 08-06-2020 End: 01-23-2021 Tretinoin Discontinued 1 NABOR LIC TOPICAL AT BEDTIME August 06, 2020 12:00am January 23, 2021 1:42pm Start: 08-19-2016 End: 04-15-2023 Tretinoin 0.025 % External C ream APPLY PEA-SIZE AMOUNT TO DRY FACE AT BEDTIME. START EVERY OTHER NIGHT Quantity: 20 Refills: 0 Ordered: 21-Aug-2016 DO Start : 19-Aug-2016 Active Start: 05-24-2014 End: 10-02-2014 TRETINOIN 0.01 % GEL apply a ffected area every night TRETINOIN [id number] Mabel Pearce MD TRETINOIN 0.05 % CREA apply to nodule at bedtime TRETINOIN [id number] Mia Meehan MD Comment on above: Apply pea-sized amou nt to entire face once nightly. Begin 3 times weekly and and gradually increase frequency to nightly as tolerated. triamcinolone acetonide 0.055 mg/actuat metered dose nasal spray (20 sources) Corticosteroid Start: 09-23-19 25 take 2 spray(s) nasal route once daily triamcinolone acetonide (NASACORT ALLERGY) 55 mcg nasal inhaler Use 2 sprays in each nostril once daily. 16.9 mL 09/22/2024 Active Start: 06-07-2015 TRIAMCINOLONE ACETONIDE 0.1 % CREA Apply twice daily as needed TRIAMCINOLONE ACETONIDE [id number] Rudy Branch DO triazolam 0.25 mg oral tablet (3 sources) Benzodiazepine Start: 06-09-2022 End: 04-15-2023 triazolam (Halcion) 0.25 mg tablet Vitamin D3 (9 sources) Start: 12-15-2018 Vitamin D3 Dos e : 2,000 unit(s) = 1 tab(s), Oral, Daily, 0 Refill(s) Start Date: 12/15/18 Status: Ordered Repeat number: 1 Start: 12-15-2018 Vitamin D3 Dos e : 2,000 unit(s) = 1 tab(s), Oral, Daily, 0 Refill(s) Start Date: 12/15/18 Status: Ordered (20 sources) Start: 09-05-2024 Start: 07-03-2024 Start: 07-03-2024 End: 07-03-2024 Start: 06-20-2024 End: 07-16-2024 Start: 05-29-2024 End: 05-30-2024 Start: 04-27-2024 End: 05-29-2024 Start: 03-31-2024 End: 04-05-2024 Start: 03-31-2024 End: 05-29-2024 Start: 02-01-2024 End: 04-05-2024 Start: 03-13-2023 End: 05-28-2023 Start: 12-05-2020 End: 01-23-2021 Start: 05-21-2020 End: 07-08-2020 Start: 12-13-2017 Completed/Discontinued Medications Medication Drug Class(es) Dates Sig (Normalized) Sig (Original) acetaminophen 300 mg / codeine phosphate 30 mg oral tablet (20 sources) Opioid Agonist Start: 02-05-2014 End: 04-25-2014 take 1 tablet by mouth every four to six hours as needed for pain ACETAMINOPHEN-CODEI NE #3 300-30 MG TABS one tablet by mouth every 4-6 hr as needed pain, avoid driving or operating machine under the influence of medication. ACETAMINOPHEN-CODEI NE [id number] Mabel Pearce MD acetaminophen 325 mg / HYDROcodone bitartrate 5 mg oral tablet (20 sources) Opioid Agonist Start: 05-30-2024 End: 07-16-2024 Hydrocodone-Acetami nophen 5-325 mg tablet Discontinued 1 {tbl} PO EVERY 6 HOURS NEEDED as needed for Pain 10 3 0 May 30, 2024 July 16, 2024 8:06pm Acute left flank pain Unspecified abdominal pain Start: 05-30-2024 End: 07-16-2024 Start: 12-11-2022 End: 12-14-2022 take 1 tablet by mouth every four hours as needed for pain Oceana 325- 5 mg oral tablet Dose = 1 tab(s), Oral, q4h, PRN for pain, X 3 day(s), # 12 tab(s), 0 Refill(s), Torn gastrocnemius, 84.1 Start Date: 12/11/22 Stop Date: 12/14/22 Status: Ordered Start: 07-09-2015 End: 11-06-2023 take 1 tablet by mouth every six hours as needed for pain Oceana 325- 5 mg oral tablet Dose = 1 tab(s), Oral, q6h, PRN for pain, X 3 day(s), # 7 tab(s), 0 Refill(s), Kidney stones, 86.4 Start Date: 11/03/23 Stop Date: 11/06/23 Status: Ordered Start: 01-08-2014 End: 04-25-2014 take 1 tablet by mouth four times daily as needed for pain HYDROCODONE-ACETAMINOPHEN 5-325 MG TABS One tablet by mouth four times daily as needed moderate to severe pain HYDROCODONE-ACETAMINOPHEN [id number] Mabel Pearce MD acetaminophen 325 mg / oxyCODONE hydrochloride 5 mg oral tablet (20 sources) Opioid Agonist Start: 12-17-2023 End: 04-05-2024 Oxycodone-Acetaminophen (Percocet) 5-325 mg tablet Discontinued 1 {tbl} PO EVERY 6 HOURS as needed for pain 12 3 0 December 17, 2023 April 05, 2024 10:43am Nonspecific abdominal pain Unspecified abdominal pain Start: 12-17-2023 End: 04-05-2024 Start: 01-23-2021 End: 02-06-2021 Oxycodone-Acetaminophen (Per cocet) 5-325 mg tablet Discontinued 1 {tbl} PO EVERY 6 HOURS 56 14 0 January 23, 2021 February 05, 2021 1:00am February 06, 2021 1:01am Chronic pelvic pain in female Endometriosis Pelvic and perineal pain Other chronic pain Endometriosis, unspecified Start: 01-23-2021 End: 02-06-2021 Start: 08-07-2020 End: 12-05-2020 Oxycodone-Acetaminophen 1 TA BLET tablet Discontinued 1 {tbl} PO EVERY 6 HOURS NEEDED as needed for Pain 8 2 0 August 07, 2020 December 05, 2020 11:24am Acute left flank pain Unspecified abdominal pain Start: 08-07-2020 End: 12-05-2020 Start: 08-07-2020 End: 12-05-2020 take 1 tablet by mouth every six hours as needed Oxycodone-Acetaminophen Discontinued 1 TABLET PO EVERY 6 HOURS NEEDED 8 2 August 07, 2020 December 05, 2020 10:24am Start: 10-27-2019 End: 11-01-2019 Oxycodone-Acetaminophen 1 EA CH tablet Discontinued 1 - 2 {tbl} PO EVERY 6 HOURS as needed for Pain Score 4-10/10 30 5 0 October 27, 2019 October 31, 2019 12:00am November 01, 2019 12:03am Biliary dyskinesia Other specified diseases of gallbladder Start: 10-27-2019 End: 11-01-2019 Start: 10-27-2019 End: 11-01-2019 take 1 tablet by mouth every six hours Oxycodone-Acetaminophen Discontinued 1 - 2 TABLET PO EVERY 6 HOURS 30 5 October 27, 2019 October 31, 2019 11:03pm Start: 02-15-2019 End: 02-20-2019 take 1 tablet by mouth every six hours as needed for pain, then take 1 tablet by mouth as needed for pain oxyCODONE-acetaminophen (PERCOCET) 5-325 MG per tablet Indications: Post-op pain Take 1 tablet by mouth every 6 hours as needed for Pain for up to 5 days. Intended supply: 5 days. Take lowest dose possible to manage pain 20 tablet 0 02/15/2019 02/20/2019 Active acyclovir 800 mg oral tablet (9 sources) Herpesvirus Nucleoside Analog DNA Polymerase Inhibitor, Herpes Simplex Virus Nucleoside Analog DNA Polymerase Inhibitor, Herpes Zoster Virus Nucleoside Analog DNA Polymerase Inhibitor Start: 07-09-2015 End: 07-16-2015 Zovirax 800 mg oral tablet Dose : 800 mg = 1 tab(s), Oral, 5x/Day, # 35 tab(s), 0 Refill(s) Start Date: 07/09/15 Stop Date: 07/16/15 Status: Ordered Quantity: 35.0 Unit: tab(s) Repeat number: 1 Adalimumab-Adaz (9 sources) Start: 01-19-2024 End: 04-05-2024 Adalimumab-Adaz (Hyrimoz Pen Crohn's-Uc Starter) 80 mg/0.8 mL pen injector Discontinued 0 SC .COMPLEX 2.4 0 January 19, 2024 12:00am April 05, 2024 11:38am Inject 160mg subcutaneously on day 1 and 80mg on day 29 Start: 01-19-2024 End: 04-05-2024 Start: 01-19-2024 End: 04-05-2024 Adalimumab-Adaz (Hyrimoz Pen Crohn's-Uc Starter) 80 mg/0.8 mL pen injector Discontinued 0 SC .COMPLEX 2.4 January 19, 2024 12:00am April 05, 2024 11:38am Inject 160mg subcutaneously on day 1 and 80mg on day 29 Adalimumab-Adaz (Hyrimoz(Cf) Pen) 40 mg/0.4 mL pen injector (5 sources) Start: 02-01-2024 End: 04-05-2024 Adalimumab-Adaz (Hyrimoz(Cf) Pen) 40 mg/0.4 mL pen injector Discontinued 40 mg SC every 2 weeks 0.8 February 01, 2024 1:00am April 05, 2024 2:03pm Start: 02-01-2024 End: 04-05-2024 Adalimumab-Adaz (Hyrimoz(Cf) Pen) 40 mg/0.4 mL pen injector Discontinued 40 mg SC every 2 weeks 0.8 February 01, 2024 1:00am April 05, 2024 2:03pm ALPRAZolam 0.25 mg oral tablet (20 sources) Benzodiazepine Start: 12-01-2023 End: 12-15-2023 take 1 tablet by mouth three times daily as needed Alprazolam 0.25 mg tablet Discontinued 0.25 mg PO THREE TIMES A DAY as needed for abdominal discomfort 30 14 0 December 01, 2023 12:00am December 14, 2023 12:00am December 15, 2023 12:04am Start: 02-15-2019 ALPRAZolam (NI RAVAM) dissolvable tablet 0.25 mg Start: 01-15-2018 End: 02-10-2018 take 1 tablet by mouth three times daily as needed for anxiety Alprazolam 0.25 MG tablet Discontinued 0.25 mg PO 3 TIMES DAILY NEEDED as needed for Anxiety 7 0 January 15, 2018 10:32am February 10, 2018 3:24pm amoxicillin 875 mg / clavulanate 125 mg oral tablet (20 sources) Penicillin-class Antibacterial Start: 10-29-2019 End: 11-05-2019 Amoxicillin-Pot Clavulanate 1 EACH tablet Discontinued 1 NMA PO TWICE A DAY 14 7 0 October 29, 2019 12:00am November 04, 2019 12:00am November 05, 2019 12:03am Start: 10-29-2019 End: 11-05-2019 Start: 10-29-2019 End: 11-05-2019 Amoxicillin-Pot Clavulanate Discontinued 1 EACH PO TWICE A DAY 14 7 October 29, 2019 12:00am November 05, 2019 12:03am Start: 06-22-2013 End: 06-17-2015 take 1 tablet by mouth twice daily AMOXICILLIN-POT CLAVULANATE 875-125 MG TABS 1 tablet by mouth twice per day for sinusitis AMOXICILLIN-POT CLAVULANATE [id number] Rudy Branch DO atenolol 25 mg oral tablet (20 sources) beta-Adrenergic David Start: 04-09-2019 End: 04-04-2024 take 1 tablet by mouth once daily Atenolol 25 mg tablet Discontinued 25 mg PO DAILY July 08, 2020 3:16pm June 28, 2023 1:19pm Start: 04-09-2019 End: 07-08-2020 Atenolol 25 MG tablet Discon tinued 12.5 mg PO TWICE A DAY as needed for PER SYMPTOMS April 09, 2019 1:00am July 08, 2020 2:00pm Start: 04-09-2019 End: 07-08-2020 take 12.5 mg by mouth twice daily Atenolol Discontinued 12.5 MG PO TWICE A DAY April 09, 2019 1:00am July 08, 2020 2:00pm Start: 07-14-2016 End: 04-04-2024 take 1 tablet by mouth twice daily as needed Atenolol 25 mg tablet Discontinued 25 mg PO TWICE A DAY as needed for PER SYMPTOMS July 08, 2020 1:57pm July 08, 2020 3:16pm Start: 01-11-2016 End: 01-15-2018 take 1 tablet by mouth once daily Atenolol 25 MG tablet Discontinued 25 mg PO DAILY January 11, 2016 12:00am January 15, 2018 10:11am Comment on above: TAKE 1/2-1 TAB [address] [facility] TWICE A DAY DIRECTED azithromycin 250 mg oral tablet (20 sources) Macrolide Antimicrobial Start: 08-28-2021 End: 11-10-2021 Azithromycin 250 mg tablet Discontinued 250 mg PO daily 12 0 August 28, 2021 12:00am November 10, 2021 1:37pm 2 tablets today, then 1 tablet daily on days 2 through 11 Start: 05-04-2021 azithromycin 2 50 mg oral tablet 0 Refill(s), 84.1 Start Date: 05/04/21 Status: Ordered Repeat number: 1 Start: 06-10-2015 End: 06-15-2015 AZITHROMYCIN 250 MG TABS 2 P O on day 1 then 1 PO daily on days 2-5 AZITHROMYCIN [id number] Rudy Sharon Branch Start: 09-27-2013 End: 12-27-2013 AZITHROMYCIN 250 MG TABS One tablet by mouth twice daily for four days once monthly AZITHROMYCIN [id number] Mabel Pearce MD baclofen 5 mg oral tablet (20 sources) gamma-Aminobutyric Acid-ergic Agonist Start: 11-03-2023 End: 11-17-2023 baclofen 5 mg oral tablet Dose : 5 mg = 1 tab(s), Oral, BID, # 28 tab(s), 0 Refill(s) Start Date: 11/03/23 Stop Date: 11/17/23 Status: Ordered Quantity: 28.0 Unit: tab(s) Repeat number: 1 Start: 02-10-2021 End: 12-17-2023 take 1 tablet by mouth twice daily as needed for pain Baclofen 10 mg tablet Discontinued 10 mg PO TWICE A DAY as needed for muscle pain 60 2 February 10, 2021 1:00am December 17, 2023 5:56am Comment on above: Take 1 tablet by rita twice daily as needed for up to 14 days. benzonatate 200 mg oral capsule (6 sources) Non-narcotic Antitussive Start: End: take 1 capsule by mouth three times daily as needed Benzonatate 200 mg capsule Discontinued 200 mg PO 3 TIMES DAILY NEEDED July 19, 2024 12:00am August 09, 2024 8:08am Start: 03-14-2023 End: 03-21-2023 Tessalon Perles 100 mg oral capsule Dose : 100 mg = 1 cap(s), Oral, TID, X 7 day(s), # 21 cap(s), 0 Refill(s), 03/21/23 2:29:00 AM EST Start Date: 03/14/23 Stop Date: 03/21/23 Status: Ordered benzoyl peroxide 0.05 mg/mg / erythromycin 0.03 mg/mg topical gel (6 sources) Macrolide, Macrolide Antimicrobial Start: 11-26-2016 BENZOYL PEROXIDE-ERYTHROMYCIN 5-3 % GEL apply daily for up to 6 weeks BENZOYL PEROXIDE-ERYTHROMYCIN [id number] Mia Meehan MD Biotin (20 sources) End: 03-23-2023 BIOTIN ORAL Take by mouth once daily. 03/23/2023 Discontinued BIOTIN ORAL Take by mouth once daily. 0 Active Comment on above: Take by mouth once d aily. budesonide 3 mg delayed release oral capsule (20 sources) Corticosteroid Start: 12-09-19 End: 12-27-19 take 2 capsules by mouth once daily in the morning Budesonide 3 mg capsule,delayed,exte nd.release Discontinued 6 mg PO EVERY MORNING 60 30 1 December 09, 2023 12:00am December 27, 2023 2:07pm Start: 06-28-2023 End: 07-12-2023 take 1 capsule by mouth once daily Budesonide 3 mg capsule,delayed,extend.release Discontinued 3 mg PO DAILY June 28, 2023 12:00am July 12, 2023 4:25pm Start: 06-28-2023 End: 07-12-2023 Start: 03-20-2021 End: 04-19-2021 take 2 capsules by mouth once daily Budesonide 3 mg capsule,delayed,extend.release Discontinued 6 mg PO DAILY 60 30 0 March 20, 2021 1:00am April 18, 2021 1:00am April 19, 2021 1:01am Start: 03-20-2021 End: 04-19-2021 take 6 mg by mouth once daily Budesonide Discontinued 6 MG PO DAILY 60 30 March 20, 2021 1:00am April 19, 2021 1:01am 24 hr buPROPion hydrochloride 150 mg extended release oral tablet (20 sources) Aminoketone Start: 07-21-2017 End: 12-13-2017 take 1 tablet by mouth once daily in the morning Bupropion Hcl (Wellbutrin Xl) 150 mg tablet extended release 24 hr Discontinued 150 mg PO EVERY MORNING July 21, 2017 12:00am December 13, 2017 10:32am Start: 03-03-2017 End: 06-28-2017 take 1 tablet by mouth once daily Bupropion Hcl 150 MG tablet extended release 24 hr Discontinued 150 mg PO DAILY March 03, 2017 1:00am June 28, 2017 11:48am End: 02-08-2019 take 1 tablet by mouth twice daily buPROPion (WELLBUTRIN SR) 150 MG extended release tablet Take 150 mg by mouth 2 times daily 0 02/08/2019 Discontinued (LIST CLEANUP) cefTRIAXone 250 mg injection (20 sources) Cephalosporin Antibacterial Start: 05-27-2022 End: 12-16-2022 inject 1 g by intramuscular injection once Ceftriaxone 250 mg recon soln Discontinued 1 g IM ONCE 1 May 27, 2022 2:41pm December 16, 2022 9:21am Start: 05-27-2022 End: 12-16-2022 Start: 05-27-2022 End: 12-16-2022 inject 1 g by intramuscular injection once Ceftriaxone Discontinued 1 GM IM ONCE 1 May 27, 2022 1:41pm December 16, 2022 8:21am Start: 08-15-2021 End: 09-02-2021 inject 1 g by intramuscular injection once Ceftriaxone 250 mg recon soln Discontinued 1 g IM ONCE 1 August 15, 2021 12:00am September 02, 2021 3:46pm Start: 08-15-2021 End: 09-02-2021 Start: 08-15-2021 End: 09-02-2021 inject 1 g by intramuscular injection once Ceftriaxone Discontinued 1 GM IM ONCE 1 August 15, 2021 12:00am September 02, 2021 3:46pm celecoxib 400 mg oral capsule (1 source) Nonsteroidal Anti-inflammatory Drug Start: 02-15-2019 End: 02-15-2019 celecoxib (CELEBREX) capsule 400 mg cetirizine hydrochloride 10 mg oral tablet (20 sources) Histamine-1 Receptor Antagonist Start: 06-03-2018 End: 02-08-2019 take 1 capsule by mouth once daily cetirizine (ZyrTEC) 10 mg capsule Take 1 capsule (10 mg) by mouth once daily. 06/03/2018 Active Start: 08-20-2011 End: 10-22-2024 take 1 tablet by mouth once daily as needed Cetirizine (Zyrtec) 10 mg tablet Discontinued 10 mg PO DAILY as needed for allergies November 10, 2021 1:37pm April 27, 2024 2:03pm ZYRTEC ALLERGY 1 0 MG CAPS one tablet daily as needed CETIRIZINE HCL [id number] Rudy Branch DO Comment on above: Take 1 tablet by rita once daily. cholecalciferol 1.25 mg oral capsule (20 sources) Vitamin D Start: 07-08-2020 End: 12-05-2020 Cholecalciferol (Vitamin D3) 1,250 mcg (50,000 unit) capsule Discontinued 56993 U PO FR July 08, 2020 12:00am December 05, 2020 11:23am Start: 07-08-2020 End: 12-05-2020 Start: 04-09-2019 End: 07-08-2020 take 1 capsule by mouth once daily Cholecalciferol (Vitamin D3) 2,000 UNIT capsule Discontinued 2000 U PO DAILY April 09, 2019 1:00am January 01, 2020 2:05pm Start: 04-09-2019 End: 07-08-2020 take 1 capsule by mouth once daily Cholecalciferol (Vitamin D3) 50 mcg (2,000 unit) capsule Discontinued 4000 U PO DAILY January 01, 2020 2:03pm July 08, 2020 1:58pm Start: 12-07-2014 End: 07-17-2015 take 1 tablet by mouth once daily VITAMIN D3 2000 UNIT CAPS One tablet by mouth daily CHOLECALCIFEROL [id number] Rudy Branch DO End: 04-15-2023 cholecalciferol (Vitamin D-3 ) 50 MCG (2000 UT) tablet Take 1 tablet (2,000 Units) by mouth. 0 04/15/2023 Discontinued (Therapy completed) Cholesterol (20 sources) Start: 05-21-2020 End: 07-08-2020 Cholesterol Discontinued GM PO May 21, 2020 11:42am July 08, 2020 1:59pm Start: 05-21-2020 End: 07-08-2020 Cholesterol Discontinued GM PO May 21, 2020 12:00am July 08, 2020 12:59pm Start: 05-21-2020 End: 07-08-2020 Cholesterol Discontinued GM PO May 21, 2020 1:00am July 08, 2020 1:59pm Cholesterol 1 gram-28 kcal/10 gram powder (5 sources) Start: 05-21-2020 End: 07-08-2020 Cholesterol 1 gram-28 kcal/10 gram powder Discontinued g PO May 21, 2020 1:00am July 08, 2020 1:59pm sugar-free cholestyramine resin 4000 mg powder for oral suspension (20 sources) Bile Acid Sequestrant Start: 06-20-2024 End: 07-16-2024 Cholestyramine-Aspart steffanie (Cholestyramine Light) 4 gram powder in packet Discontinued 4 g PO TWICE A DAY 60 2 June 20, 2024 12:00am July 16, 2024 8:06pm Bile acid diarrhea administer w/meal; avoid other meds within 1hr before or 4-6hr after dose Start: 07-08-2020 End: 08-06-2020 Cholestyramine-Aspartame 4 g shivam powder Discontinued 1 NMA PO before meals July 08, 2020 12:00am August 06, 2020 2:27pm Start: 05-02-2020 End: 12-31-2021 Cholestyramine-Aspartame (CH OLESTYRAMINE LIGHT) 4 gram powder Start with 1 g 2-3x/week; and increase to 1g daily; and then to 1 g 2x/day with meals and if ok use 3x/day with meal 90 g 3 05/02/2020 12/31/2021 Discontinued Comment on above: Start with 1 g 2-3x/ week; and increase to 1g daily; and then to 1 g 2x/day with meals and if ok use 3x/day with meal cimetidine 300 mg oral tablet (20 sources) Histamine-2 Receptor Antagonist Start: 04-13-19 End: 04-15-19 take 1 tablet by mouth every six hours Cimetidine 300 mg tablet Discontinued 300 mg PO EVERY 6 HOURS June 01, 2019 4:05pm September 05, 2019 3:09pm ciprofloxacin 500 mg oral tablet (20 sources) Quinolone Antimicrobial Start: 05-16-19 End: 05-17-19 take 1 tablet by mouth twice daily Ciprofloxacin Hcl 500 mg tablet Discontinued 500 mg PO TWICE A DAY 6 3 0 May 16, 2019 1:00am May 18, 2019 1:00am May 17, 2019 10:00am Start: 01-08-2014 End: 01-15-2014 take 1 tablet by mouth twice daily CIPROFLOXACIN HCL 500 MG TABS One tablet by mouth twice daily CIPROFLOXACIN HCL [id number] Mabel Pearce MD clascoterone 1 % crea (20 sources) Start: 12-31-2021 End: 01-05-2023 clascoterone 1 % crea Indica tions: Acne vulgaris Apply 1 application to affected area twice daily. 60 g 3 12/31/2021 01/05/2023 Discontinued Start: 12-31-2021 clascoterone 1 % crea Indications: Acne vulgaris Apply 1 application to affected area twice daily. 60 g 3 12/31/2021 Active Comment on above: Apply 1 application to affected area twice daily. codeine phosphate 2 mg/ml / guaiFENesin 20 mg/ml oral solution (14 sources) Opioid Agonist Start: 5 End: 5 take 1 mL by mouth four times daily as needed for cough Codeine-Guaifenesin (Guaifenesin Ac) 10-100 mg/5 mL liquid Discontinued 10 mL PO 4 TIMES DAILY as needed for cough 280 7 0 July 19, 2024 5:09am August 09, 2024 8:08am Viral upper respiratory tract infection with cough Acute upper respiratory infection, unspecified Start: 07-19-2024 End: 08-09-2024 Start: 05-04-2021 codeine-guaife nesin 10 mg-100 mg/5 mL oral syrup 0 Refill(s), 84.1 Start Date: 05/04/21 Status: Ordered Repeat number: 1 Start: 05-04-2021 codeine-guaife nesin 10 mg-100 mg/5 mL oral syrup 0 Refill(s), 84.1 Start Date: 05/04/21 Status: Ordered colestipol hydrochloride 1000 mg oral tablet (9 sources) Bile Acid Sequestrant Start: 12-09-2023 End: 12-27-2023 Colestipol 1 gram tablet Discontinued 2 g PO BEDTIME 60 1 December 09, 2023 12:00am December 27, 2023 2:07pm Start: 12-09-2023 End: 12-27-2023 dicyclomine hydrochloride 20 mg oral tablet (20 sources) Anticholinergic Start: 03-31-2024 End: 04-04-2024 take 1 tablet by mouth three times daily Dicyclomine 20 mg tablet Discontinued 20 mg PO THREE TIMES A DAY 90 0 March 31, 2024 1:00am April 04, 2024 2:26pm Start: 01-04-2024 End: 01-13-2024 take 1 capsule by mouth twice daily Dicyclomine 10 mg capsule Discontinued 10 mg PO TWICE A DAY 60 2 January 04, 2024 12:00am January 13, 2024 2:28pm Start: 10-22-2023 End: 12-17-2023 take 1 capsule by mouth twice daily as needed for pain Dicyclomine 10 mg capsule Discontinued 10 mg PO TWICE A DAY as needed for abdominal pain 30 2 October 22, 2023 12:00am December 17, 2023 5:57am Start: 06-17-2023 End: 06-28-2023 take 1 tablet by mouth three times daily as needed for pain Dicyclomine 20 mg tablet Discontinued 20 mg PO THREE TIMES A DAY as needed for abdominal pain 14 0 June 17, 2023 8:29pm June 28, 2023 1:18pm Start: 07-25-2020 End: 08-06-2020 take 2 capsules by mouth every six hours as needed for pain Dicyclomine 10 mg capsule Discontinued 20 mg PO EVERY 6 HOURS as needed for abdominal pain July 25, 2020 7:04am August 06, 2020 2:28pm Start: 07-25-2020 End: 08-06-2020 Start: 07-25-2020 End: 08-06-2020 take 20 mg by mouth every six hours Dicyclomine Discontinued 20 MG PO EVERY 6 HOURS July 25, 2020 7:04am August 06, 2020 2:28pm Start: 08-13-2019 End: 09-05-2019 take 2 capsules by mouth three times daily before mealtime Dicyclomine 10 MG capsule Discontinued 20 mg PO THREE TIMES DAILY BEFORE MEALS August 13, 2019 12:00am September 05, 2019 3:09pm Start: 08-13-2019 End: 09-05-2019 Start: 08-13-2019 End: 09-05-2019 take 20 mg by mouth three times daily before mealtime Dicyclomine Discontinued 20 MG PO THREE TIMES DAILY BEFORE MEALS August 13, 2019 12:00am September 05, 2019 3:09pm 24 hr dilTIAZem hydrochloride 120 mg extended release oral tablet (20 sources) Calcium Channel David Start: 05-18-2018 End: 05-26-2018 take 1 tablet by mouth once daily Diltiazem Hcl (Cardizem La) 120 mg tablet extended release 24 hr Discontinued 120 mg PO DAILY 25 02May 18, 2018 1:00am May 26, 2018 4:28pm doxycycline hyclate 100 mg oral capsule (11 sources) Tetracycline-cl ass Drug Start: 07-15-2023 End: 11-19-2023 take 1 capsule by mouth every twelve hours Doxycycline Hyclate 100 mg capsule Discontinued 100 mg PO Q12H 60 July 15, 2023 12:00am November 19, 2023 8:08am ERYTHROMYCIN BASE PO (1 source) End: 02-08-2019 ERYTHROMYCIN BASE PO Take by mouth 0 02/08/2019 Discontinued (LIST CLEANUP) NORETHINDRONE ACET-ETHINYL EST (20 sources) Estrogen Start: 10-09-2015 End: 11-26-2016 take 1 tablet by mouth once daily .08/25 1.5-30 MG-MCG TABS 1 tablet by mouth daily NORETHINDRONE ACET-ETHINYL EST [id number] Mia Meehan MD Start: 10-09-2015 take 1 tablet by rita th once daily 1.5-30 MG-MCG TABS 1 tablet by mouth daily NORETHINDRONE ACET-ETHINYL EST [id number] Mia Meehan MD Start: 10-09-2015 take 1 tablet by rita th once daily 1.5-30 MG-MCG TABS 1 tablet by mouth daily NORETHINDRONE ACET-ETHINYL EST [id number] Rudy Branch DO Norgestimate-Ethinyl Estradiol (20 sources) Progestin, Estrogen Start: 12-15-2015 End: 10-19-2016 Norgestimate-Ethinyl Estradiol (Sprintec) 1 EACH tablet Discontinued 1 TABLET PO DAILY December 15, 2015 1:28pm October 19, 2016 9:14pm Start: 12-15-2015 End: 10-19-2016 Start: 12-15-2015 End: 10-19-2016 take 1 tablet by mouth once daily Norgestimate-Ethinyl Estradiol (Sprintec) 1 EACH tablet Discontinued 1 {tbl} PO DAILY December 15, 2015 12:00am October 19, 2016 9:14pm Start: 12-15-2015 End: 10-19-2016 Norgestimate-Ethinyl Estradi ol (Sprintec) 1 EACH tablet Discontinued 1 TABLET PO DAILY December 14, 2015 11:00pm October 19, 2016 8:14pm Start: 12-15-2015 End: 10-19-2016 Norgestimate-Ethinyl Estradi ol (Sprintec) 1 EACH tablet Discontinued 1 TABLET PO DAILY December 15, 2015 12:00am October 19, 2016 9:14pm famotidine 40 mg oral tablet (20 sources) Histamine-2 Receptor Antagonist Start: 12-27-2023 End: 04-27-2024 take 1 tablet by mouth once daily Famotidine 40 mg tablet Discontinued 40 mg PO daily December 27, 2023 12:00am April 27, 2024 2:03pm Start: 10-15-2022 End: 06-16-2023 take 1 tablet by mouth once famotidine (PEPCID) 40 mg tablet Take 1 tablet by mouth every afternoon. 10/15/2022 06/16/2023 Discontinued Start: 02-15-2019 End: 02-15-2019 famotidine (PEPCID) tablet 2 0 mg Start: 08-08-2018 End: 10-31-2018 take 2 tablets by mouth once daily Famotidine 20 mg tablet Discontinued 40 mg PO DAILY 60 30 0 August 08, 2018 12:00am October 31, 2018 2:09pm Start: 08-08-2018 End: 10-31-2018 take 40 mg by mouth once daily Famotidine Discontinued 40 MG PO DAILY 60 30 August 08, 2018 12:00am October 31, 2018 2:09pm Comment on above: Take 1 tablet by rita th every afternoon. flunisolide 0.025 mg/actuat metered dose nasal spray (20 sources) Corticosteroid Start: 2013 End: 2013 take 2 spray(s) nasal route twice daily FLUNISOLIDE 25 MCG/ACT (0.025%) SOLN 2 spray/nostril twice daily FLUNISOLIDE [id number] Mabel Pearce MD gadoterate meglumine (Dotarem) 0.5 mmol/mL contrast injection 17 mL (1 source) Start: 2023 End: 2023 inject 17 mL intravenously once 17 mL, intravenous, Once in imaging, Starting on Wed08/06/23 at 1537, For 1 dose, Administer undiluted as rapid I.V. bolus injection 12 hr guaiFENesin 600 mg extended release oral tablet (13 sources) Start: 2022 End: 2023 take 1 tablet by mouth twice daily, then take 1 tablet by mouth every twelve hours Guaifenesin (Mucinex) 600 mg tablet extended release 12hr Discontinued 600 mg PO TWICE A DAY 14 0 March 13, 2023 1:00am May 28, 2023 8:42am hydrocortisone 10 mg/ml topical lotion (20 sources) Corticosteroid Start: 2022 End: 2022 hydrocortisone (HYTONE,CETACORT) 1 % lotion Apply to affected area twice daily. 60 mL 05/19/2022 01/29/2023 Discontinued Start: 09-05-2019 End: 01-23-2021 Hydrocortisone 2.5 % ointmen t Discontinued 1 NMA TOPICAL TWICE A DAY 28.35 1 September 05, 2019 12:00am January 23, 2021 1:42pm Start: 01-24-2019 hydrocortisone (ANUSOL-HC) 2.5 % rectal cream Place rectally 2 times daily. 30 g 0 01/24/2019 Active Start: 10-02-2014 HYDROCORTISONE 2.5 % CREA Apply to rectal area twice daily as needed HYDROCORTISONE [id number] Rudy Branch DO Start: 11-02-2013 HYDROCORTISONE ACETATE 25 MG SUPP one suppository once or twice daily as needed HYDROCORTISONE ACETATE [id number] Mia Meehan MD take 100 mg rectal r oute once daily hydrocortisone (CORTENEMA) 100 MG/60ML enema Place 100 mg rectally nightly 0 Active End: 10-02-2014 HYDROCORTISONE 1 % CREA appl y to recal area as needed HYDROCORTISONE [id number] Mabel Pearce MD Comment on above: Apply to affected ar ea twice daily. Apply to affected ar ea two times a day. Hydrocortisone Acetate 25 mg suppository (2 sources) Start: 09-05-2024 End: 09-26-2024 Hydrocortisone Acetate 25 mg suppository Discontinued 25 mg RC TWICE A DAY 42 21 0 September 05, 2024 12:00am September 25, 2024 12:00am September 26, 2024 12:08am Start: 09-05-2024 Hydrocortisone Acetate 25 mg suppository Active 25 mg RC TWICE A DAY 42 21 September 05, 2024 12:00am September 25, 2024 12:00am Hydrocortisone Acetate 30 mg suppository (5 sources) Start: 03-31-2024 End: 04-05-2024 Hydrocortisone Acetate 30 mg suppository Discontinued 30 mg RC TWICE A DAY 12 March 31, 2024 1:00am April 05, 2024 11:38am Start: 03-31-2024 End: 04-05-2024 Hydrocortisone Acetate 30 mg suppository Discontinued 30 mg RC TWICE A DAY March 31, 2024 1:00am April 05, 2024 11:38am hydroxychloroquine sulfate 200 mg oral tablet (1 source) Antimalarial, Antirheumatic Agent End: 01-17-2024 take 1 tablet by mouth once daily hydroxychloroquine 200 MG Tab tablet Take 200 mg by mouth daily. 01/17/2024 Discontinued hydrOXYzine pamoate 25 mg oral capsule (20 sources) Antihistamine Start: 03-03-2017 End: 06-28-2017 take 1 capsule by mouth three times daily as needed for anxiety Hydroxyzine Pamoate 25 MG capsule Discontinued 25 mg PO 3 TIMES DAILY NEEDED as needed for Anxiety 20 0 March 03, 2017 1:00am June 28, 2017 11:49am ivermectin 10 mg/ml topical cream (20 sources) Antiparasitic, Pediculicide Start: 10-19-2019 End: 05-21-2020 Ivermectin 30 GM cream Discontinued 30 g TP DAILY October 19, 2019 12:00am May 21, 2020 11:33am PSORIASIS Start: 10-19-2019 End: 05-21-2020 ketoconazole 20 mg/ml topical cream (20 sources) Azole Antifungal Start: 02-12-2021 End: 05-28-2023 Ketoconazole 2 % cream Discontinued 1 NMA TOPICAL TWICE A DAY 30 21 0 February 12, 2021 1:00am May 28, 2023 8:42am Lidocaine (20 sources) Antiarrhythmic, Amide Local Anesthetic Start: 04-27-2024 End: 05-29-2024 Lidocaine 5 % ointment Discontinued 1 NMA TOPICAL THREE TIMES A DAY as needed April 27, 2024 1:00am May 29, 2024 5:14pm Start: 05-04-2021 lidocaine 2% t opical gel with applicator 0 Refill(s) Start Date: 05/04/21 Status: Ordered Repeat number: 1 Start: 02-15-2019 End: 02-15-2019 lidocaine PF 1 % injection 1 mL Start: 01-13-2018 End: 02-08-2018 Lidocaine Hcl 5 ML jelly Dis continued 1 APPLICATIO TOPICAL NEEDED as needed for crohn's/anal fissures/discomfo January 13, 2018 12:00am February 08, 2018 3:31pm Start: 01-13-2018 End: 02-08-2018 Lidocaine Hcl Discontinued 1 APPLICATIO TOPICAL NEEDED January 13, 2018 12:00am February 08, 2018 3:31pm Start: 10-22-2016 LIDOCAINE 5 % OINT use as directed LIDOCAINE [id number] Mia Meehan MD Start: 11-02-2013 LIDOCAINE HCL 3 % LOTN apply to rectum three times a day as needed LIDOCAINE HCL [id number] Rudy Branch DO Start: 06-29-2013 End: 09-27-2013 LIDOCAINE VISCOUS 2 % SOLN 5 ml by mouth omani and spit every 3- 4 hr as needed sore throat LIDOCAINE HCL [id number] Mabel Pearce MD lidocaine (XYLOC DAI) 2 % jelly Apply topically as needed for Pain Apply topically as needed. 0 Active Comment on above: Apply to affected ar ea as needed. LORazepam 1 mg oral tablet (20 sources) Benzodiazepine Start: 1 End: 2 take 1 tablet by mouth three times daily as needed for anxiety Lorazepam (Ativan) 1 mg tablet Discontinued 1 mg PO THREE TIMES A DAY as needed for anxiety January 23, 2021 12:00am May 19, 2021 3:32pm Start: 10-22-2016 ATIVAN 0.5 MG TABS use as directed LORAZEPAM [id number] Mia Meehan MD magnesium citrate 58.2 mg/ml oral solution (20 sources) Start: 10-02-2016 End: 10-03-2016 CITRATE OF MAGNESIA 1.745 GM/30ML SOLN Take 150 mL once MAGNESIUM CITRATE [id number] Yandel BLANTON magnesium hydroxide 80 mg/ml oral suspension (5 sources) Start: 08-20-2016 End: 07-10-2024 magnesium hydroxide 400 MG/5ML Suspension Take 5 mL by mouth. 08/20/2016 07/10/2024 Discontinued (Patient Preference) meclizine hydrochloride 25 mg oral tablet (20 sources) Antiemetic Start: 04-25-2022 End: 12-16-2022 take 1 tablet by mouth every eight hours as needed for dizziness Meclizine 25 mg tablet Discontinued 25 mg PO EVERY 8 HOURS NEEDED as needed for Dizziness 20 April 25, 2022 6:48pm December 16, 2022 9:22am medroxyPROGESTERone acetate 10 mg oral tablet (20 sources) Progestin Start: 05-21-2020 End: 05-31-2020 take 1 tablet by mouth once daily Medroxyprogesterone 10 mg tablet Discontinued 10 mg PO daily 10 May 21, 2020 1:00am May 30, 2020 1:00am May 31, 2020 1:03am Start: 09-23-2017 End: 01-11-2018 take 1 tablet by mouth once daily Medroxyprogesterone (Provera) 10 mg tablet Discontinued 10 mg PO daily 01 04September 23, 2017 12:00am January 11, 2018 3:18pm Start: 03-03-2017 End: 09-28-2017 take 1 tablet by mouth once daily Medroxyprogesterone 5 mg tablet Discontinued 10 mg PO DAILY June 28, 2017 11:49am September 28, 2017 11:33am Start: 03-03-2017 End: 09-28-2017 Start: 10-09-2015 End: 11-26-2016 take 1 tablet by mouth once daily MEDROXYPROGESTERONE ACETATE 5 MG TABS One tablet by mouth daily for ten days out of the month MEDROXYPROGESTERONE ACETATE [id number] Mia Meehan MD End: 07-17-2015 MEDROXYPROGESTERONE ACETATE 5 MG TABS one tablet daily for 10 days every 2-3 months MEDROXYPROGESTERONE ACETATE [id number] Monique Nicole MD meloxicam 15 mg oral tablet (5 sources) Nonsteroidal Anti-inflammatory Drug Start: 12-13-2020 take 1 tablet by mouth once daily as needed Meloxicam 15 MG Oral Tablet TAKE 1 TABLET DAILY NEEDED. Quantity: 30 Refills: 3 Ordered: 13-Dec-2020 Mag Gonzales MD Start : 13-Dec-2020 Active mesalamine 66.7 mg/ml enema (20 sources) Aminosalicylate Start: 12-15-2021 End: 05-28-2023 Mesalamine 4 gram/60 mL enema Discontinued 4 g RC AT BEDTIME 1680 0 December 15, 2021 12:00am May 28, 2023 8:42am Start: 11-20-2021 End: 12-15-2021 Mesalamine 1,000 mg supposit ory Discontinued 1 g RC AT BEDTIME as needed for colitis December 03, 2021 7:43pm December 15, 2021 9:08am Start: 11-20-2021 End: 12-15-2021 Start: 11-20-2021 End: 12-15-2021 Mesalamine Discontinued 1 GM RC AT BEDTIME December 03, 2021 6:43pm December 15, 2021 8:08am Start: 01-16-2019 mesalamine (CA [employer]) 1000 MG suppository UNWRAP AND INSERT1 SUPPOSITORY RECTALLY AT BEDTIME 1 01/16/2019 Active take 1000 mg by mout h once daily MESALAMINE PO Take 1,000 mg by mouth daily. Active Comment on above: 4 g by RECTAL route daily at bedtime. metaxalone 800 mg oral tablet (18 sources) Start: 03-01-20 End: 05-28-19 24 take 1 tablet by mouth three times daily as needed for pain Metaxalone 800 mg tablet Discontinued 800 mg PO THREE TIMES A DAY as needed for muscle pain 20 March 01, 2023 1:00am May 28, 2023 8:42am do not take baclofen while on this medication metoclopramide 10 mg oral tablet (20 sources) Dopamine-2 Receptor Antagonist Start: 07-26-19 End: 08-07-19 take 1 tablet by mouth every six hours as needed for nausea and vomiting Metoclopramide Hcl (Reglan) 10 mg tablet Discontinued 10 mg PO EVERY 6 HOURS as needed for nausea and vomiting July 25, 2020 7:08am August 06, 2020 2:31pm metoprolol tartrate 25 mg oral tablet (20 sources) beta-Adrenergic David Start: 05-26-19 End: 06-09-19 Metoprolol Tartrate 25 mg tablet Discontinued 12.5 mg PO TWICE A DAY 25 02May 26, 2018 1:00am June 08, 2018 11:12am Start: 05-26-2018 End: 06-08-2018 take 12.5 mg by mouth twice daily Metoprolol Tartrate Discontinued 12.5 MG PO TWICE A DAY May 26, 2018 1:00am June 08, 2018 11:12am metroNIDAZOLE 500 mg oral tablet (20 sources) Nitroimidazole Antimicrobial Start: 02-06-2022 metroNIDAZOLE (FLAGYL) 500 mg tablet Take 1 tablet by mouth at 9pm and take 1 tablet by mouth at 11pm the night before surgery. 2 tablet 0 02/06/2022 Active Start: 01-08-2014 End: 01-15-2014 take 1 tablet by mouth three times daily METRONIDAZOLE 500 MG TABS One tablet by mouth three times daily METRONIDAZOLE [id number] Mabel Pearce MD Comment on above: Take 1 tablet by rita at 9pm and take 1 tablet by mouth at 11pm the night before surgery. mometasone furoate 0.05 mg/actuat metered dose nasal spray (13 sources) Corticosteroid Start: 2 End: 2 take 2 spray(s) nasal route once daily mometasone (NASONEX) 50 mcg/actuation nasal spray Use 2 Sprays in each nostril once daily. 17 g 3 10/02/2021 02/04/2022 Discontinued End: 07-10-2024 mometasone 50 MCG/ACT Suspen martine 2 sprays by Nasal route daily. 07/10/2024 Discontinued (Patient Preference) End: 01-17-2024 Mometasone Furoate (NASONEX NA) by Nasal route. 01/17/2024 Discontinued (Duplicate (suppress cancel msg)) Comment on above: Use 2 Sprays in each nostril once daily. Multi-Vitamin Gummies Oral Tablet Chewable (11 sources) take 1 tablet by mouth once daily Multi-Vitamin Gummies Oral Tablet Chewable CHEW AND SWALLOW 1 TABLET DAILY. Quantity: 0 Refills: 0 Ordered: 20-Sep-2018 DO Active MULTIPLE VITAMIN (20 sources) take 1 tablet by mouth once daily MULTI-VITAMIN TABS One tablet by mouth daily MULTIPLE VITAMIN [id number] Mia Meehan MD take 1 tablet by mouth once sienna y MULTI-VITAMIN TABS One tablet by mouth daily MULTIPLE VITAMIN [id number] Mabel Pearce MD neomycin sulfate 500 mg oral tablet (2 sources) Aminoglycoside Antibacterial Start: 02-06-2022 neomycin 500 mg tablet Take 2 tablets by mouth at 9pm and take 2 tablets by mouth at 11pm the night before surgery. 4 tablet 0 02/06/2022 Active Comment on above: Take 2 tablets by mo [facility] at 9pm and take 2 tablets by mouth at 11pm the night before surgery. NIFEdipine (19 sources) Dihydropyridine Calcium Channel David Start: 10-22-2016 NIFEDIPINE NIFEDIPINE Mia Meehan MD Start: 10-22-2016 NIFEDIPINE 201 10/02/26 NIFEDIPINE Mia Meehan MD nitrofurantoin, macrocrystals 100 mg oral capsule (20 sources) Nitrofuran Antibacterial Start: 05-17-2019 End: 05-24-2019 take 1 capsule by mouth twice daily at mealtime Nitrofurantoin Macrocrystal 100 mg capsule Discontinued 100 mg PO TWICE A DAY 14 7 0 May 17, 2019 1:00am May 23, 2019 1:00am May 24, 2019 1:07am administer with food (meal or snack) norethindrone 0.35 mg oral tablet (20 sources) Start: 12-12-2021 End: 02-04-2022 take 1 tablet by mouth once daily Norethindrone, Contraceptive, (ALEX) 0.35 mg tablet Take 1 tablet by mouth once daily. 30 tablet 11 12/12/2021 02/04/2022 Discontinued Start: 11-08-2019 End: 01-01-2020 take 1 tablet by mouth twice daily, then take 1 tablet by mouth once daily Norethindrone Acetate (Aygestin) 5 mg tablet Discontinued 5 mg PO TWICE A DAY 45 0 November 10, 2019 1:56pm January 01, 2020 2:04pm PO BID x 3 days, then once daily until finished Start: 06-16-2018 End: 08-08-2018 take 1 tablet by mouth three times daily, then take 1 tablet by mouth twice daily Norethindrone Acetate (Aygestin) 5 mg tablet Discontinued 5 mg PO .COMPLEX 45 0 June 16, 2018 12:00am August 08, 2018 11:08am 5 mg PO tid until bleeding stops X 24 hr then bid to finish Rx Start: 06-16-2018 End: 08-08-2018 Start: 11-26-2016 take 1 tablet by rita once daily ERVIN 0.35 MG TABS One tablet by mouth daily NORETHINDRONE [id number] Mia Meehan MD Comment on above: Take 1 tablet by rita th once daily. NORETHINDRONE ACET-ETHINYL EST (3 sources) Start: 6 take 1 tablet by mouth once daily 1.5-30 MG-MCG TABS 1 tablet by mouth daily NORETHINDRONE ACET-ETHINYL EST [id number] Mia Meehan MD Start: 10-09-2015 take 1 tablet by rita th once daily 1.5-30 MG-MCG TABS 1 tablet by mouth daily NORETHINDRONE ACET-ETHINYL EST [id number] Rudy Branch DO Start: 10-09-2015 End: 11-26-2016 take 1 tablet by mouth once daily 1.5-30 MG-MCG TABS 1 tablet by mouth daily NORETHINDRONE ACET-ETHINYL EST [id number] Mia Meehan MD ondansetron 4 mg oral tablet (20 sources) Serotonin-3 Receptor Antagonist Start: 05-29-2024 End: 07-16-2024 take 2 tablets by mouth every two hours as needed, then take 1 tablet by mouth every four hours as needed Ondansetron Hcl 4 mg tablet Discontinued 4 mg PO .COMPLEX 5 May 29, 2024 1:00am July 16, 2024 8:06pm 4 mg orally; take two tablets PO two hours prior to start of bowel prep and one every 4 hours as needed for N/V Start: 03-24-2021 End: 04-18-2021 Start: 08-13-2019 End: 04-27-2024 take 1 tablet by mouth every eight hours as needed for nausea Ondansetron 4 mg tablet,disintegrating Discontinued 4 mg PO EVERY 8 HOURS NEEDED as needed for Nausea 12 May 04, 2021 1:00am May 19, 2021 3:32pm Start: 02-15-2019 End: 02-15-2019 ondansetron (ZOFRAN) injecti on 4 mg Start: 10-22-2016 End: 04-18-2021 take 1 tablet by mouth every eight hours as needed for nausea and vomiting Ondansetron Hcl (Zofran) 4 mg tablet Discontinued 4 mg PO Q8H as needed for nausea and vomiting 90 0 March 24, 2021 1:00am April 18, 2021 2:31pm Start: 12-15-2015 End: 10-19-2016 take 1 tablet by mouth every eight hours as needed for nausea Ondansetron 4 MG tablet Discontinued 4 mg PO EVERY 8 HOURS NEEDED as needed for Nausea December 15, 2015 12:00am October 19, 2016 9:14pm Start: 10-02-2014 ZOFRAN 4 MG TA BS as needed daily ONDANSETRON HCL [id number] Mia Meehan MD Comment on above: Take 1 tablet by rita th every 8 hours as needed. oxyCODONE hydrochloride 5 mg oral tablet (20 sources) Opioid Agonist Start: 4 End: 4 take 1 tablet by mouth every six hours as needed for pain Oxycodone 5 mg tablet Discontinued 5 mg PO EVERY 6 HOURS as needed for pain 14 3 0 June 17, 2023 November 19, 2023 8:09am Abdominal pain Unspecified abdominal pain Start: 02-10-2022 End: 01-05-2023 take 1 tablet by mouth every eight hours as needed for pain oxyCODONE IR (ROXICODONE) 5 mg immediate release tablet Indications: Acute postoperative pain Take 1 tablet by mouth every 8 hours as needed for pain. 10 tablet 02/10/2022 01/05/2023 Discontinued Start: 10-18-2018 End: 10-23-2018 take 1 tablet by mouth every six hours as needed for pain Oxycodone 5 MG tablet Discontinued 5 mg PO EVERY 6 HOURS NEEDED as needed for Pain 12 3 0 October 18, 2018 October 20, 2018 12:00am October 23, 2018 12:09am Rectal pain Other specified diseases of anus and rectum take 1 tablet by rita th every four hours as needed oxyCODONE 5 MG tablet Take 1 tablet by mouth every 4 hours as needed. Active Comment on above: Take 1 tablet by rita th every 8 hours as needed for pain. PARoxetine hydrochloride 10 mg oral tablet (20 sources) Serotonin Reuptake Inhibitor Start: 8 End: 8 take 5 mg by mouth once daily Paroxetine Hcl (Paxil) 10 mg tablet Discontinued 5 mg PO DAILY February 08, 2018 1:00am February 10, 2018 3:25pm Peg 3350-Sod Sulf,Srfz-Fjy-Snv (Suflave) 178.7-7.3-0.5 gram recon soln (5 sources) Start: End: Peg 3350-Sod Sulf,Grsm-Jaa-Ftw (Suflave) 178.7-7.3-0.5 gram recon soln Discontinued 0 PO .COMPLEX 2 0 May 29, 2024 1:00am May 30, 2024 9:49pm As directed for split dose bowel prep Start: 05-29-2024 End: 05-30-2024 Peg 3350-Sod Sulf,Chlr-Pot-M ag (Suflave) 178.7-7.3-0.5 gram recon soln Discontinued 0 PO .COMPLEX 2 May 29, 2024 1:00am May 30, 2024 9:49pm As directed for split dose bowel prep phenazopyridine hydrochloride 200 mg oral tablet (20 sources) Start: 11-14-2022 End: 03-23-2023 take 1 tablet by mouth three times daily as needed for pain phenazopyridine (PYRIDIUM) 200 mg tablet Indications: Urinary frequency Take 1 tablet by mouth three times daily as needed for pain. 9 tablet 11/14/2022 03/23/2023 Discontinued Comment on above: Take 1 tablet by [facility] three times daily as needed for pain. phentermine hydrochloride 37.5 mg oral capsule (2 sources) Sympathomimetic Amine Anorectic Start: 01-12-2017 take 1 tablet by mouth once daily ADIPEX-P 37.5 MG CAPS One tablet by mouth daily PHENTERMINE HCL [id number] Mia Meehan MD pindolol 5 mg oral tablet (20 sources) beta-Adrenergic David Start: 01-15-2018 End: 02-08-2018 take 1 tablet by mouth once daily Pindolol 5 MG tablet Discontinued 2.5 mg PO DAILY 30 January 15, 2018 12:00am February 08, 2018 3:34pm Start: 01-15-2018 End: 02-08-2018 take 2.5 mg by mouth once daily Pindolol Discontinued 2.5 MG PO DAILY January 15, 2018 12:00am February 08, 2018 3:34pm polyethylene glycol 3350 936929 mg / potassium chloride 2970 mg / sodium bicarbonate 6740 mg / sodium chloride 5860 mg / sodium sulfate 71355 mg powder for oral solution (19 sources) Osmotic Laxative Start: 07-13-2023 End: 11-19-2023 Peg 3350-Electrolytes (Golytely) 236-22.74-6.74 -5.86 gram recon soln Discontinued 240 mL PO Q10M 4000 0 July 13, 2023 12:00am November 19, 2023 8:09am until fecal effluent is clear Start: 07-13-2023 Peg 3350-Elect rolytes (Golytely) 236-22.74-6.74 -5.86 gram recon soln Active 240 ML PO Q10M 4000 July 13, 2023 12:00am until fecal effluent is clear Start: 10-10-2021 End: 12-31-2021 peg 3350-Electrolytes (GOLYT MITA) 236-22.74-6.74 -5.86 gram suspension Indications: Bloody diarrhea Refer to printed prep instructions from your provider. 4000 mL 0 10/10/2021 12/31/2021 Discontinued Comment on above: Refer to printed pre p instructions from your provider. Potassium (11 sources) Start: 11-12-2020 Potassium TABS Quantity: 0 Refills: 0 Ordered: 12-Nov-2020 DO Start : 12-Nov-2020 Active Start: 11-12-2020 take 1 tablet by rita th once daily Potassium 99 MG Oral Tablet TAKE 1 TABLET DAILY. Quantity: 0 Refills: 0 Ordered: 12-Nov-2020 DO Start : 12-Nov-2020 Active predniSONE 20 mg oral tablet (20 sources) Start: 07-19-2024 End: 08-09-2024 take 2 tablets by mouth once daily Prednisone 20 mg tablet Discontinued 40 mg PO DAILY 10 5 0 July 19, 2024 12:00am August 09, 2024 8:08am Start: 01-04-2024 End: 02-03-2024 Prednisone 20 mg tablet Disc ontinued 20 mg PO THREE TIMES A DAY 90 30 0 January 04, 2024 12:00am February 02, 2024 1:00am February 03, 2024 1:08am Please take 60mg dialy for 1 week, 40 mg daily for 1 week, 20 mg daily for 1 week, 10 mg daily for 1 week Start: 01-04-2024 End: 02-03-2024 Start: 03-01-2023 End: 05-28-2023 take 1 tablet by mouth twice daily Prednisone 20 mg tablet Discontinued 20 mg PO TWICE A DAY 10 March 01, 2023 1:00am May 28, 2023 8:42am DO NOT TAKE until approved by [facility] Orthopedics Start: 03-01-2023 End: 05-28-2023 Start: 07-28-2021 End: 08-27-2021 take 2 tablets by mouth once daily, then take 1 tablet by mouth once daily, then take 0.5 tablet by mouth once daily predniSONE (DELTASONE) 10 mg tablet Take 2 tablets by mouth once daily for 10 days, THEN 1 tablet once daily for 10 days, THEN 0.5 tablets once daily for 10 days. 35 tablet 0 07/28/2021 08/27/2021 Active Start: 12-13-2017 End: 12-13-2017 take 1 tablet by mouth once daily as needed Prednisone 10 mg tablet Discontinued 10 mg PO DAILY as needed December 13, 2017 10:29am December 13, 2017 10:31am Start: 08-27-2017 End: 12-13-2017 Prednisone 10 MG tablet Disc ontinued 10 mg PO DAILY 63 August 27, 2017 12:00am December 13, 2017 10:30am 60 mg p.o. daily 3 days, 50 mg p.o. daily 3 days, 40 mg p.o. daily 3 days, 30 mg p.o. daily 3 days, 20 mg p.o. daily 3 days, 10 mg p.o. daily 3 days. Start: 08-27-2017 End: 12-13-2017 Start: 01-11-2016 End: 10-19-2016 take 3 tablets by mouth once daily Prednisone 20 MG tablet Discontinued 60 mg PO DAILY January 11, 2016 12:00am October 19, 2016 9:14pm Start: 01-11-2016 End: 10-19-2016 Start: 01-11-2016 End: 10-19-2016 take 60 mg by mouth once daily Prednisone Discontinued 60 MG PO DAILY January 11, 2016 12:00am October 19, 2016 9:14pm Start: 10-23-2015 End: 11-12-2015 PREDNISONE 10 MG TABS 4 tabs x 3 days, 3 tabs x 3 days, 2 tabs x 3 days, 1 tab x 3 days PREDNISONE [id number] Rudy Sharon Branch DO Start: 04-09-2015 End: 04-23-2015 take 2 tablets by mouth once daily PREDNISONE 20 MG TABS Two tablets by mouth daily PREDNISONE [id number] Rudy Sharon Jose Carlos DO Start: 04-02-2015 End: 04-09-2015 take 1 tablet by mouth once daily PREDNISONE 20 MG TABS One tablet by mouth daily PREDNISONE [id number] Rudy Sharon Jose Carlos DO Start: 01-10-2015 End: 01-26-2015 PREDNISONE 20 MG TABS 3 tabs for 4 days, 2 tabs x 4 days, 1 tab x 4 days, 1/2 tab x 4 days PREDNISONE [id number] Rudy Sharon Jose Carlos DRISCOLL Comment on above: Take 2 tablets by mo [facility] once daily for 10 days, THEN 1 tablet once daily for 10 days, THEN 0.5 tablets once daily for 10 days. promethazine hydrochloride 25 mg oral tablet (20 sources) Phenothiazine Start: 04-25-19 End: 12-17-19 take 1 tablet by mouth every six hours as needed for nausea Promethazine 25 mg tablet Discontinued 25 mg PO EVERY 6 HOURS NEEDED as needed for Nausea 10 April 25, 2022 1:00am December 16, 2022 9:23am Start: 02-15-2019 End: 02-15-2019 promethazine (PHENERGAN) inj ection 6.25 mg Start: 01-08-2014 End: 10-02-2014 take 1 tablet by mouth three times daily as needed for nausea PROMETHAZINE HCL 12.5 MG TABS One tablet by mouth three times daily as needed nausea PROMETHAZINE HCL [id number] Mabel Pearce MD rifAXIMin 550 mg oral tablet (20 sources) Rifamycin Antibacterial Start: 04-18-2021 End: 05-19-2021 take 1 tablet by mouth three times daily Rifaximin (Xifaxan) 550 mg tablet Discontinued 550 mg PO THREE TIMES A DAY 42 April 18, 2021 1:00am May 19, 2021 3:33pm sennosides, detention 8.6 mg oral tablet (20 sources) Start: 02-10-2022 End: 04-15-2023 take 1 tablet by mouth twice daily Senna 8.6 mg tab Take 1 tablet by mouth twice daily. 60 tablet 02/10/2022 01/05/2023 Discontinued End: 07-10-2024 take 1 tablet by mouth once daily Senna 8.6 MG tablet Take 1 tablet by mouth daily. 07/10/2024 Discontinued (Patient Preference) Comment on above: Take 1 tablet by rita th twice daily. simethicone 125 mg chewable tablet (20 sources) Start: 07-26-19 End: 08-07-19 take 1 tablet by mouth three times daily as needed Simethicone 125 mg tablet,chewable Discontinued 125 mg PO THREE TIMES A DAY as needed for abdominal distention 20 July 25, 2020 12:00am August 06, 2020 2:27pm solifenacin succinate 5 mg oral tablet (20 sources) Cholinergic Muscarinic Antagonist Start: 10-30-19 End: 01-01-20 take 1 tablet by mouth once daily Solifenacin (Vesicare) 5 mg tablet Discontinued 5 mg PO DAILY 30 October 30, 2019 12:00am January 01, 2020 2:04pm spironolactone 50 mg oral tablet (20 sources) Aldosterone Antagonist Start: 05-19-19 End: 11-15-19 take 1 tablet by mouth once daily spironolactone (ALDACTONE) 50 mg tablet Take 1 tablet by mouth once daily. 30 tablet 6 05/19/2022 11/14/2022 Discontinued (Course of therapy completed) End: 10-02-2014 SPIRONOLACTONE 100 MG TABS 2 tablets twice daily SPIRONOLACTONE [id number] Mabel Pearce MD Comment on above: Take 1 tablet by rita th once daily. steroid shampoo (20 sources) Start: 12-05-2020 End: 01-23-2021 steroid shampoo Discontinued TOPICAL December 05, 2020 11:23am January 23, 2021 1:42pm Start: 12-05-2020 End: 01-23-2021 steroid shampoo Discontinued TOPICAL 0 December 05, 2020 12:00am January 23, 2021 1:42pm Start: 12-05-2020 End: 01-23-2021 steroid shampoo Discontinued TOPICAL December 04, 2020 11:00pm January 23, 2021 12:42pm Start: 12-05-2020 End: 01-23-2021 steroid shampoo Discontinued TOPICAL December 05, 2020 12:00am January 23, 2021 1:42pm sucralfate 100 mg/ml oral suspension (20 sources) Aluminum Complex Start: 12-15-2021 End: 01-13-2024 take 1 mL by mouth three times daily Sucralfate (Carafate) 100 mg/mL suspension Discontinued 10 mL PO THREE TIMES A DAY 1000 0 December 17, 2023 12:00am January 13, 2024 2:29pm Start: 12-15-2021 End: 06-28-2023 take 10 mL by mouth four times daily 1 hour(s) before bedtime sucralfate (CARAFATE) 100 mg/mL suspension 10 ML ORALLY 4 TIMES PER DAY 1 HOUR BEFORE MEALS AND AT BEDTIME ON AN EMPTY STOMACH 10/21/2022 Active Start: 12-15-2021 End: 12-15-2021 take 1 tablet by mouth before mealtime Sucralfate 1 gram tablet Discontinued 1 g PO before meals 90 0 December 15, 2021 12:00am December 15, 2021 12:11pm Start: 12-15-2021 End: 12-15-2021 Start: 11-10-2019 End: 01-01-2020 take 1 tablet by mouth at bedtime Sucralfate (Carafate) 1 gram tablet Discontinued 1 g PO before meals and at bedtime 120 0 November 10, 2019 12:00am January 01, 2020 2:05pm Start: 11-10-2019 End: 01-01-2020 Start: 04-22-2015 End: 04-25-2015 CARAFATE 1 GM/10ML SUSP 10 m l Four times daily - 1 hour before meals and at bedtime SUCRALFATE [id number] Rudy Branch DO Comment on above: 10 ML ORALLY 4 TIMES PER DAY 1 HOUR BEFORE MEALS AND AT BEDTIME ON AN EMPTY STOMACH sulindac 200 mg oral tablet (20 sources) Nonsteroidal Anti-inflammatory Drug Start: 4 End: 5 take 1 tablet by mouth twice daily SULINDAC 200 MG TABS One tablet by mouth twice daily SULINDAC [id number] Mabel Pearce MD Surgical Lubricant Jelly gel (19 sources) Start: End: Surgical Lubricant Jelly gel For MRI Female Pelvis, MRI department to provide. Administer intra-vaginal Surgilube immediately prior the MRI procedure (total amount to patient toleranace). 12 g 0 06/26/2021 12/31/2021 Discontinued Start: 06-26-2021 Surgical Lubri cant Jelly gel For MRI Female Pelvis, MRI department to provide. Administer intra-vaginal Surgilube immediately prior the MRI procedure (total amount to patient toleranace). 12 g 0 06/26/2021 Active Comment on above: For MRI Female Pelvi s, MRI department to provide. Administer intra-vaginal Surgilube immediately prior the MRI procedure (total amount to patient toleranace). tacrolimus 0.001 mg/mg topical ointment (14 sources) Calcineurin Inhibitor Immunosuppressant Start: End: tacrolimus (PROTOPIC) 0.1 % ointment Apply to affected area twice daily. 30 g 3 10/07/2021 12/31/2021 Discontinued Comment on above: Apply to affected ar ea twice daily. tamsulosin hydrochloride 0.4 mg oral capsule (9 sources) alpha-Adrenergic David Start: End: Flomax 0.4 mg oral capsule Dose : 0.4 mg = 1 cap(s), Oral, qDay, # 7 cap(s), 0 Refill(s) Start Date: 12/15/18 Stop Date: 12/22/18 Status: Ordered Quantity: 7.0 Unit: cap(s) Repeat number: 1 traMADol hydrochloride 50 mg oral tablet (20 sources) Opioid Agonist Start: End: take 1 tablet by mouth every four hours as needed for pain Tramadol 50 mg tablet Discontinued 50 mg PO EVERY 4 HOURS NEEDED as needed for Pain July 25, 2020 12:00am August 06, 2020 2:27pm End: 07-17-2015 TRAMADOL HCL 50 MG TABS 1-2 tablets ebery 6 hrs as needed TRAMADOL HCL [id number] Mabel Pearce MD ursodiol 250 mg oral tablet (20 sources) Bile Acid Start: 07-01-2021 End: 11-10-2021 take 1 tablet by mouth twice daily Ursodiol 250 mg tablet Discontinued 250 mg PO TWICE A DAY 60 2 July 01, 2021 12:00am November 10, 2021 1:38pm valACYclovir 1000 mg oral tablet (20 sources) Herpesvirus Nucleoside Analog DNA Polymerase Inhibitor, Herpes Simplex Virus Nucleoside Analog DNA Polymerase Inhibitor, Herpes Zoster Virus Nucleoside Analog DNA Polymerase Inhibitor Start: 05-16-2019 End: 05-26-2019 Valacyclovir (Valtrex) 1 gram tablet Discontinued 1000 mg PO TWICE A DAY 20 10 0 May 16, 2019 1:00am May 25, 2019 1:00am May 26, 2019 1:09am initial outbreak Start: 05-24-2015 End: 05-26-2015 take 2 tablets by mouth twice daily VALTREX 1 GM TABS Two tablets by mouth twice daily VALACYCLOVIR HCL [id number] Rudy Branch DO Problems Active Problems Problem Classification Problem Date Documented Da te Episodic/Chronic Anal and rectal conditions (20 sources) Anal fissure; Translations: [Anal fissure] Onset: 3 08-01-2008 Episodic Anxiety disorders (20 sources) Anxiety; Translations: [Anxiety disorder, unspecified] Onset: 9 08-01-2008 Chronic Asthma (20 sources) Exercise-induced asthma; Translations: [Exercise induced bronchospasm] Onset: 6 06-22-2013 Chronic Comment on above: PRN INHALER/SPORTS I NDUCED Biliary tract disease (20 sources) Biliary dyskinesia; Translations: [Other specified diseases of gallbladder] Onset: 4 08-06-2020 Episodic Cancer of ovary (9 sources) Primary low grade serous adenocarcinoma of ovary; Translations: [Malignant neoplasm of unspecified ovary] Onset: 4 Chronic Cardiac dysrhythmias (20 sources) Ectopic beats; Translations: [Other premature depolarization] Onset: 1 Chronic Disorders of lipid metabolism (2 sources) Hypertriglyceridemia; Translations: [Pure hyperglyceridemia] Onset: 4 01-12-2024 Chronic Disorders of teeth and jaw (18 sources) Dental caries; Translations: [Dental caries, unspecified] Onset: 3 06-08-2022 Episodic Diverticulosis and diverticulitis (20 sources) Diverticulosis of sigmoid colon; Translations: [Diverticulosis of colon (without mention of hemorrhage)] Onset: 3 07-08-2020 Chronic E Codes: Fall (20 sources) Fall; Translations: [Unspecified fall, initial encounter] 12-03-2020 Episodic Endometriosis (20 sources) Endometriosis (clinical); Translations: [Intrauterine synechiae] Onset: 5 10-02-2014 Chronic Esophageal disorders (20 sources) Gastroesophageal reflux disease; Translations: [Gastro-esophageal reflux disease with esophagitis] Onset: 4 12-27-2013 Chronic Comment on above: NOT CONTROLLED WITH MED Essential hypertension (20 sources) Hypertensive disorder; Translations: [Essential (primary) hypertension] Onset: 9 06-03-2018 Chronic Fracture of upper limb (20 sources) Closed fracture of distal phalanx of index finger; Translations: [Displaced fracture of distal phalanx of right index finger, initial encounter for closed fracture] Onset: 4 07-31-2022 Episodic Genitourinary congenital anomalies (20 sources) Bilateral medullary sponge kidney; 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] Onset: 1 08-13-2020 Chronic Genitourinary symptoms and ill-defined conditions (20 sources) Urge incontinence of urine; Translations: [Urge incontinence] Onset: 2 10-22-2016 Chronic Headache; including migraine (20 sources) Migraine without aura; Translations: [Migraine without aura, not intractable, without status migrainosus] Onset: 2 Chronic Heart valve disorders (20 sources) Mitral valve regurgitation; Translations: [Nonrheumatic mitral (valve) insufficiency] Onset: 4 06-22-2013 Chronic Hemorrhoids (20 sources) Internal hemorrhoids; Translations: [External hemorrhoids] Onset: 8 01-08-2014 Episodic Immunizations and screening for infectious disease (20 sources) Nonspecific tuberculin test reaction ; Translations: [Interferon gamma assay positive] Onset: 6 Resolved: 0 10-09-2015 Episodic Inflammatory diseases of female pelvic organs (20 sources) Vaginitis; Translations: [Acute vaginitis] Onset: 7 11-26-2016 Episodic Malaise and fatigue (20 sources) Fatigue; Translations: [Other fatigue] Onset: 4 Episodic Malignant neoplasm without specification of site (4 sources) Disseminated malignant neoplasm, unspecified; Translations: [Disseminated malignant neoplasm, unspecified] Onset: 3 Chronic Menopausal disorders (1 source) Atrophy of vagina; Translations: [Postmenopausal atrophic vaginitis] 11-05-2023 Chronic Menstrual disorders (20 sources) Menometrorrhagia; Translations: [Excessive and frequent menstruation with irregular cycle] Onset: 3 04-28-2012 Chronic Mycoses (20 sources) Candidiasis of vagina; Translations: [Candidiasis of vulva and vagina] Onset: 2 Resolved: 6 05-24-2015 Episodic Nausea and vomiting (20 sources) Nausea; Translations: [Nausea] Onset: 4 Resolved: 5 10-02-2014 Episodic Nervous system congenital anomalies (2 sources) Disorder of autonomic nervous system; 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]] Onset: 4 01-12-2024 Chronic Noninfectious gastroenteritis (20 sources) Chronic diarrhea; Translations: [Noninfective gastroenteritis and colitis, unspecified] Onset: 4 Episodic Nutritional deficiencies (2 sources) Vitamin D deficiency; Translations: [Vitamin D deficiency, unspecified] Onset: 4 07-22-2023 Chronic Osteoarthritis (20 sources) Arthritis; Translations: [Unspecified osteoarthritis, unspecified site] Onset: 3 12-02-2013 Chronic Other and unspecified benign neoplasm (20 sources) Benign neoplasm of colon; Translations: [Benign neoplasm of colon, unspecified] Onset: 3 08-01-2008 Episodic Other bone disease and musculoskeletal deformities (1 source) Tietze's disease; Translations: [Chondrocostal junction syndrome [Tietze]] Onset: Episodic Other circulatory disease (11 sources) History of clinical finding in subject; Translations: [Personal history of other diseases of circulatory system] Episodic Other circulatory disease (11 sources) H/O: rheumatic fever; Translations: [Personal history of other infectious and parasitic diseases] Episodic Other circulatory disease (20 sources) Abnormal peripheral pulse; Translations: [Other specified symptoms and signs involving the circulatory and respiratory systems] Onset: 4 01-26-2023 Episodic Other circulatory disease (10 sources) Other specified symptoms and signs involving the circulatory and respiratory systems; Translations: [Other symptoms involving cardiovascular system] 01-26-2023 Episodic Other connective tissue disease (11 sources) H/O: arthritis; Translations: [Personal history of arthritis] Episodic Other connective tissue disease (20 sources) Muscle pain; Translations: [Myalgia, unspecified site] Onset: 4 02-20-2021 Episodic Other connective tissue disease (20 sources) Ganglion cyst of right dorsal wrist; Translations: [Ganglion, right wrist] 09-10-2020 Episodic Other connective tissue disease (20 sources) Pain in limb; Translations: [Pain in unspecified limb] 02-10-2021 Episodic Other connective tissue disease (20 sources) Pain in calf; Translations: [Pain in unspecified lower leg] 12-16-2022 Episodic Other connective tissue disease (9 sources) Pain in unspecified lower leg; Translations: [Pain in limb] 12-16-2022 Episodic Other connective tissue disease (5 sources) Pain in leg, unspecified; Translations: [Pain in limb] 01-26-2023 Episodic Other connective tissue disease (4 sources) Other specified disorders of muscle; Translations: [Other specified disorders of muscle] Onset: Episodic Other connective tissue disease (1 source) Myofascial pain; Translations: [Myalgia, other site] 07-08-2023 Episodic Other connective tissue disease (1 source) Myalgia, other site; Translations: [Myofascial pain] Onset: Episodic Other connective tissue disease (11 sources) H/O: back problem; Translations: [Personal history of other diseases of the musculoskeletal system and connective tissue] Onset: 4 01-12-2024 Episodic Other diseases of bladder and urethra (20 sources) Spasm of bladder; Translations: [Other specified disorders of bladder] Onset: 6 Resolved: 6 10-09-2015 Chronic Other diseases of bladder and urethra (4 sources) Other specified disorders of bladder; Translations: [...] [Polycystic ovarian syndrome] Onset: 8 08-01-2008 Chronic Comment on above: lab evaluation Other endocrine disorders (20 sources) Hypoadrenalism; Translations: [...] genital tract] Episodic Other female genital disorders (20 sources) Cyst of vulva; Translations: [Vulvar cyst] Onset: 4 05-25-2022 Episodic Other female genital disorders (4 sources) Vulvar cyst; Translations: [Other specified noninflammatory disorders of vulva and perineum] 05-25-2022 Episodic Other gastrointestinal disorders (20 sources) Irritable bowel syndrome; Translations: [Irritable bowel syndrome without diarrhea] Onset: 6 10-30-2015 Chronic Other gastrointestinal disorders (20 sources) Irritable bowel syndrome with diarrhea; Translations: [Irritable bowel syndrome with diarrhea] Onset: 4 04-18-2021 Chronic Other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 above: Performed By: #### L 500.4050, L501.9520, L506.0400, L503.6150, L100.0100, L506.1001, L503.6550, L503.0106 ####[facility] [address] [place], [address] Albumin/Globulin [Mass ratio] 1.3 {ratio} Normal 0.9-2.4 [facility] Comment on above: Performed By: #### L 500.4050, L501.9520, L506.0400, L503.6150, L100.0100, L506.1001, L503.6550, L503.0106 ####[facility] [address] [place], [address] ALK PHOS 73 U/L Normal 35-104 [facility] Comment on above: Performed By: #### L 500.4050, L501.9520, L506.0400, L503.6150, L100.0100, L506.1001, L503.6550, L503.0106 ####[facility] [address] [place], [address] ALT [Catalytic activity/Vol] 30 U/L Normal <=34 [facility] Comment on above: Performed By: #### L 500.4050, L501.9520, L506.0400, L503.6150, L100.0100, L506.1001, L503.6550, L503.0106 ####[facility] [address] [place], [address] AST [Catalytic activity/Vol] 25 U/L Normal <=31 [facility] Comment on above: Performed By: #### L 500.4050, L501.9520, L506.0400, L503.6150, L100.0100, L506.1001, L503.6550, L503.0106 ####[facility] [address] [place], [address] Bilirubin [Mass/Vol] 0.30 mg/dL Normal 0.00-1.30 [facility] Comment on above: Performed By: #### L 500.4050, L501.9520, L506.0400, L503.6150, L100.0100, L506.1001, L503.6550, L503.0106 ####[facility] [address] [place], [address] BUN/CRE 13.6 RATIO Normal 10-20 [facility] Comment on above: Performed By: #### L 500.4050, L501.9520, L506.0400, L503.6150, L100.0100, L506.1001, L503.6550, L503.0106 ####[facility] [address] [place], [address] Calcium [Mass/Vol] 9.5 mg/dL Normal 7.6-11.0 [facility] Comment on above: Performed By: #### L 500.4050, L501.9520, L506.0400, L503.6150, L100.0100, L506.1001, L503.6550, L503.0106 ####[facility] [address] [place], [address] Chloride [Moles/Vol] 104 mmol/L Normal 98-108 [facility] Comment on above: Performed By: #### L 500.4050, L501.9520, L506.0400, L503.6150, L100.0100, L506.1001, L503.6550, L503.0106 ####[facility] [address] [place], [address] CO2 [Moles/Vol] 24.3 mmol/L Normal 21.0-32.0 [facility] Comment on above: Performed By: #### L 500.4050, L501.9520, L506.0400, L503.6150, L100.0100, L506.1001, L503.6550, L503.0106 ####[facility] [address] [place], [address] Creatinine [Mass/Vol] 0.70 mg/dL Normal 0.70-1.20 [facility] Comment on above: Performed By: #### L 500.4050, L501.9520, L506.0400, L503.6150, L100.0100, L506.1001, L503.6550, L503.0106 ####[facility] [address] [place], [address] GAP 12 Normal 5-15 [facility] Comment on above: Performed By: #### L 500.4050, L501.9520, L506.0400, L503.6150, L100.0100, L506.1001, L503.6550, L503.0106 ####[facility] [address] [place], [address] GFR/1.73 sq M.predicted among non-blacks MDRD (S/P/Bld) [Vol rate/Area] 112 mL/min/{1.73_m2} Normal >60 [facility] Comment on above: Result Comment: mL/m in/1.73m2 CKD-EPI Creatinine Equation (2020) Performed By: #### L 500.4050, L501.9520, L506.0400, L503.6150, L100.0100, L506.1001, L503.6550, L503.0106 ####[facility] [address] [place], [address] Globulin (S) [Mass/Vol] 3.3 g/dL Normal 2.2-4.2 [facility] Comment on above: Performed By: #### L 500.4050, L501.9520, L506.0400, L503.6150, L100.0100, L506.1001, L503.6550, L503.0106 ####[facility] [address] [place], [address] Glucose [Mass/Vol] 95 mg/dL Normal 70-99 [facility] Comment on above: Performed By: #### L 500.4050, L501.9520, L506.0400, L503.6150, L100.0100, L506.1001, L503.6550, L503.0106 ####[facility] [address] [place], [address] Potassium [Moles/Vol] 4.0 mmol/L Normal 3.3-5.1 [facility] Comment on above: Performed By: #### L 500.4050, L501.9520, L506.0400, L503.6150, L100.0100, L506.1001, L503.6550, L503.0106 ####[facility] [address] [place], [address] Sodium [Moles/Vol] 140 mmol/L Normal 133-145 [facility] Comment on above: Performed By: #### L 500.4050, L501.9520, L506.0400, L503.6150, L100.0100, L506.1001, L503.6550, L503.0106 ####[facility] [address] [place], [address] T PROT 7.4 g/dL Normal 5.9-8.4 [facility] Comment on above: Performed By: #### L 500.4050, L501.9520, L506.0400, L503.6150, L100.0100, L506.1001, L503.6550, L503.0106 ####[facility] [address] [place], [address] Urea nitrogen [Mass/Vol] 9 mg/dL Normal 4-19 [facility] Comment on above: Performed By: #### L 500.4050, L501.9520, L506.0400, L503.6150, L100.0100, L506.1001, L503.6550, L503.0106 ####[facility] [address] [place], [address] Ferritinon 10-17-2024 Ferritin [Mass/Vol] 97 ng/mL Normal 22-378 [facility] Comment on above: Performed By: #### L 500.4050, L501.9520, L506.0400, L503.6150, L100.0100, L506.1001, L503.6550, L503.0106 ####[facility] [address] [place], [address] Ironon 10-17-2024 Iron [Mass/Vol] 99 ug/dL Normal 50-170 [facility] Comment on above: Performed By: #### L 500.4050, L501.9520, L506.0400, L503.6150, L100.0100, L506.1001, L503.6550, L503.0106 ####[facility] [address] [place], [address] T4 Free Directon 10-17-2024 T4 FREE DIRECT 0.80 ng/dL Normal 0.76-1.46 [facility] Comment on above: Performed By: #### L 500.4050, L501.9520, L506.0400, L503.6150, L100.0100, L506.1001, L503.6550, L503.0106 ####[facility] [address] [place], [address] Thyroid Stim Hormone (TSH)on 10-17-2024 TSH 0.491 uIU/mL Normal 0.300-4.200 [facility] Comment on above: Performed By: #### L 500.4050, L501.9520, L506.0400, L503.6150, L100.0100, L506.1001, L503.6550, L503.0106 ####[facility] [address] [place], [address] Vitamin B12on 10-17-2024 Cobalamin (Vitamin B12) [Mass/Vol] 385 pg/mL Normal 180-914 [facility] Comment on above: Performed By: #### L 500.4050, L501.9520, L506.0400, L503.6150, L100.0100, L506.1001, L503.6550, L503.0106 ####[facility] [address] [place], [address] Vitamin D,25 Hydroxyon 10-17 Vitamin D 25-OH 31.0 ng/mL Normal 30-100 [facility] Comment on above: Result Comment: Rolanda min D StatusDeficiency: <20 ng/mL (50nmol/L)Insufficiency: 20-30 ng/mL (50-75 nmol/L)Sufficiency: 30-100 ng/mL (75-250 nmol/L)Toxicity: >100 ng/mL (>250 nmol/L) Performed By: #### L 500.4050, L501.9520, L506.0400, L503.6150, L100.0100, L506.1001, L503.6550, L503.0106 ####[facility] [address] [place], [place], [address] Gastroenterology Visit Repor ton 10-10-2024 Gastroenterology Visit Report Normal [facility] Telephone (WSTR) KAYA ARCE ([id number]) 1985 F Date Time Provider Department 09/25/24 RUDY BRANCH WSTR During your visit today, we recorded the following information about you: Martha Marino RN 09/25/2024 9:04 AM Signed Pt given provider's message as copied below: Alex Mistry PA KA 09/23/24 2:18 PM Note Please contact patient let her know urine culture reveals no UTI. She needs follow-up with PCP to ensure resolution of blood in the urine Marhta Marino RN Allergies As of Date: 09/25/2024 Noted Allergy Reaction EUCALYPTUS 06/07/2007 4 - [...] cold and clammy (subjective only) Date Reviewed: 09/22/2024 Reviewed by: Emily West MA - Fully Assessed Reason for Visit: Results [95] Prescriptions as of 09/25/2024 - NANCY URRUTIA, PEN 40 mg/0.4 mL pen kit - triamcinolone acetonide (NASACORT ALLERGY) 55 mcg nasal inhaler Use 2 sprays in each nostril once daily. - cetirizine (ZYRTEC) 10 mg tablet Take 1 tablet by mouth once daily. - clascoterone (WINLEVI) 1 % crea After the skin is dry, apply a thin uniform layer twice per day, in the morning and the evening, to the affected area. Avoid accidental transfer of cream into eyes, mouth or other mucous membranes. If contact with mucous membranes occurs, rinse thoroughly with water. - tretinoin (RETIN-A) 0.025 % topical cream Apply pea-sized amount to entire face once nightly. Begin 3 times weekly and and gradually increase frequency to nightly as tolerated. - Azelaic Acid (FINACEA) 15 % gel Gently massage a thin film to face twice daily, in the morning and evening - clindamycin (CLEOCIN-T) 1 % gel Apply a thin film 1-2 times daily to affected areas. Use enough to cover the entire affected area lightly - gabapentin (NEURONTIN) 100 mg capsule Take 2 capsules by mouth three times a day for 30 days. - loratadine (CLARITIN) 10 mg tablet Take 1 tablet by mouth every afternoon. - sucralfate (CARAFATE) 100 mg/mL suspension 10 ML ORALLY 4 TIMES PER DAY 1 HOUR BEFORE MEALS AND AT BEDTIME ON AN EMPTY STOMACH - nystatin (MYCOSTATIN) powder APPLY TO AFFECTED AREA TWICE DAILY. - benzoyl peroxide (BENOXYL 10) 10 % lotn (Discontinued) Apply to affected area twice daily. - ibuprofen (MOTRIN) 600 mg tablet Take 1 tablet by mouth every 6 hours. Take with food. - acetaminophen (TYLENOL EXTRA STRENGTH) 500 mg tablet Take 2 tablets by mouth every 6 hours. - mesalamine (ROWASA) 4 gram/60 mL enema 4 g by RECTAL route daily at bedtime. - lidocaine (XYLOCAINE) 5 % ointment Apply to affected area as needed. - baclofen vaginal suppository 10 mg (CPD) Unwrap and inserty 1 Suppository vaginally once daily as directed. - EPINEPHrine (EPIPEN 2-SINCERE) 0.3 mg/0.3 mL auto-injector Inject 0.3 mL intramuscularly as needed (Inject in thigh as needed for anaphylaxis and call 911). GENERIC OKAY - cyanocobalamin, vitamin B-12, (VITAMIN B-12 ORAL) Take by mouth. - flurandrenolide (CORDRAN) 0.05 % lotion Apply to affected area twice daily. As needed. - ISOtretinoin (ACCUTANE) 20 mg capsule (Discontinued) Take 1 capsule by mouth once daily. - pantoprazole DR (PROTONIX) 40 mg tablet Take 40 mg by mouth once daily. - ondansetron orally disintegrating (ZOFRAN ODT) 4 [...] tablets daily Problem List As Of Date 09/25/2024 Noted Resolved PAIN IN JOINT, LOWER LEG [M25.569] 12/11/2005 01/24/2008 Uncomplicated asthma [J45.909] 02/17/2006 CHRONIC RHINITIS [J31.0] 02/17/2006 Insulin resistance [E88.819] 02/17/2006 IBS (IRRITABLE BOWEL SYNDROME) [K58.9] 02/17/2006 ANAL FISSURE [K60.2] BENIGN NEOPLASM LG BOWEL [ (more content not included)... Normal [facility] Bacteria Ur Culton 5 Bacteria identified Cx Nom (U) ORGANISM ID: 1 10,000 -<50,000 CFU/ml Normal urogenital gilbert Normal [facility] Comment on above: Performed By: #### 6 30-4 #### [facility] CLIA [id number] [address] [place] [address] OF [facility] CNOVon 09-22-2024 CNOV Office Visit (UCWSTR ) KAYA ARCE ([id number]) 1985 F Date Time Provider Department 09/22/24 11:15 AM LIZET HALE WSTR During your visit today, we recorded the following information about you: Temperature Pulse Respiration Blood pressure 98.5 degrees 83/minute 18/minute 142/93 Weight 87.7 kg Lizet Hale APRN.CNP 09/22/2024 12:46 PM Signed [facility] Subjective Kaya Mc Claude is a 39 year old female. Patient presents with: Dizziness: L ear muffled and high pitched noise x3 days, causing vertigo and nausea Rash: R lower abd local reaction to Humira injection x1 day, has one hive spot L thigh Dizziness Associated symptoms include dizziness. Rash Ear Pain and Dizziness: - Ear pain primarily on the left side, with some on the right. - Woke up with complete hearing loss in the left ear. - Reports dizziness and vertigo, exacerbated by rapid eye or body movements. - Denies recent cough or congestion. - Denies recent similar episodes of vertigo. Humira Reaction: - Administered Humira injection one day early due to work schedule. - Developed a severe local reaction at the injection site, including redness, itching, and warmth. - Applied ice packs and Benadryl ointment for relief. - Typically experiences only mild bruising at the injection site. - Reports a single hive on the arm, treated with Benadryl ointment. - Denies taking daily antihistamines; took Benadryl with the injection and an additional dose last night. - Reports feeling unwell and experiencing elevated blood pressure after the injection. - Denies previous similar reactions to Humira. Crohn's Disease: - Managed with Humira, prescribed by Dr. Junior (GI). - Recent blood tests showed no antibodies to Humira, but low drug levels. - Reports recent flare-up of symptoms. Ankylosing Spondylitis: - Managed with Humira. Hidradenitis Suppurativa: - Managed with Humira. Possible UTI: - Reports bladder symptoms for the past few days, including pain described as "poking" rather than burning. - Denies dysuria. - History of frequent kidney stones. - Reports left-sided pain, uncertain if related to bowel or urinary issues. Review of Systems Skin: Positive for rash. Neurological: Positive for dizziness. Constitutional: (+) malaise Ears/Nose/Mouth/Throat : (+) left ear pain, (+) right ear pain, (+) left hearing loss Respiratory: (+) cough Gastrointestinal: (+) left-sided abdominal pain Genitourinary: (+) bladder pain, (-) dysuria Skin: (+) injection site erythema, (+) injection site pruritus, (+) isolated hive Neurological: (+) dizziness, (+) vertigo, (+) lightheadedness Objective BP 142/93 Pulse 83 Temp 36.9 ?C (98.5 ?F) Resp 18 Wt 87.7 kg (193 lb 5.5 oz) LMP 02/10/2022 SpO2 100% BMI 34.25 kg/m? PAST MEDICAL HISTORY Diagnosis Date Abnormal glandular Papanicolaou smear of cervix Abn. Pap smear (cervix) Abnormal maternal glucose tolerance, antepartum (HCC) 2003 diet controlled Allergic rhinitis, cause unspecified Allergic rhinitis Anal fissure Anal fissure Ankylosis spondylitis Arthritis Asthma (HCC) Back pain Calculus of kidney 2007 4 stones, followed by Dr. 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 Normal [facility] UA DIP, URINE (POC)on 2024 BILIRUBIN UA (POCT) Negative Negative [facility] CLARITY UA (POCT) Clear [facility] COLOR UA (POCT) Yellow [facility] GLUCOSE UA (POCT) Negative Negative mg/dL [facility] Hemoglobin Ql (U) Trace-lysed Abnormal Negative [facility] Interpretation and review of laboratory results Abnormal [facility] KETONE UA (POCT) Negative Negative mg/dL [facility] LEUKOCYTES UA (POCT) Negative Negative [facility] (POCT) Negative Negative [facility] PH UA (POCT) 6 4.5 - 8.0 [facility] Protein Ql (U) Negative Negative mg/dL [facility] SPECIFIC GRAVITY UA (POCT) 1.015 1.005 - 1.030 [facility] UROBILINOGEN UA (POCT) 0.2 Zeynep l E.U./dL [facility] Location:[address], [place], [place], [address] [place] [address] POINT OF CARE [facility] [id number] 09-18-2024 [facility] Mis. COMMENT Normal . [facility] Comment on above: Order Comment: [facility] Comments: adalimumab and [id number] levels Result Comment: Test Ordered: [id number] Adalimumab Drug + AntibodyAdalimumab Drug Level 6.8 ug/mL ES Reference Range: .Quantitation Limit: <0.6 ug/mLResults of 0.6 or higher indicate detection of adalimumab.Comments: - The optimal drug concentration depends upon patient- specific factors including the disease and desired therapeutic endpoint. - Maintenance trough concentrations >=7.5 may correspond to higher remission rates.(1) - Mucosal healing may be more likely in patients with maintenance trough levels >8.14.(2) - In rheumatoid arthritis, trough levels of 5-8 are associated with clinical (EULAR) response.(3) - This assay measures the antibody-unbound (free) fraction of adalimumab when serum anti-adalimumab antibodies are present.Anti-Adalimumab Antibody <25 ng/mL ES Reference Range: . Interpretation: The above result is an UNDETECTED Antibody titer Quantitation Limit: <25 ng/mL. Results of 25 or higher indicate detection of anti- adalimumab antibodies. 25 - 100 ng/mL: LOW titer 101 - 300 ng/mL: INTERMEDIATE titer 301 or greater ng/mL: HIGH titerComments: - Anti-drug antibody levels should be interpreted in the context of the concomitant free drug trough concentration. - Low anti-drug antibodies may be transient while high titers are likely to be more consequential.(4-6) - Some immunogenicity is reversible. Elimination of intermediate titer (and even some high titer) anti-adalimumab antibodies has been achieved with dose escalation and/or methotrexate or 6-MP.(7) - This anti-adalimumab antibody assay is drug tolerant, and all positive results are verified for anti-drug specificity by a confirmatory test.References:1. Deniz N, et al. AGA Review on TDM in IBD. Gastroenterol 2017;153:835-857.2. Delma E, et al. J Crohns Col 2016;10(5):510-515.3. Frankw MF, et al. [facility] Rheum Dis 2015;74:513-518.4. Bartelds GM, et al. ADRIAN 2011;305(14):0585-3337.5. Stesierra C, et al. J Clin Gastroenterol 2016; 50:482-489.6. Yanai H, et al. Clin Gastroenterol Hepatol 2015; 13(3):522-530.7. Jai A, et al. Gastroenterol 2019;156(6):S-617.These tests were developed and their performancecharacteristics determined by [employer]. They have not beencleared or approved by the Food and Drug Administration.However, these electrochemiluminescence immunoassay (ECLIA)measurements of adalimumab and anti-adalimumab antibody(constituting DoseASSURE ADL) have been developed andvalidated in accordance with CLIA (Clinical LaboratoryImprovement Amendments) and the FDA Guidance document, AssayDevelopment and Validation for Immunogenicity Testing ofTherapeutic Protein Products (2019).Performed at: [facility] [address] [id number] Director: Magdi Brock MD, Phone: [phone] at: [address] [id number] Director: El Case PhD, Phone: [phone] Performed By: #### L 501.9187, L506.0400, L3100.5400, L3100.5055, L3410.9992, L501.60121, L501.9520, L501.9310 ####[facility] [address] [place], [place], [id number] PROLACTIN 4465on 09-10-2024 PROLACTIN 9.1 ng/mL Normal 4.8-33.4 [facility] Comment on above: Order Comment: MISC. FOR Result Comment: Perf ormed at: [facility] [place] [id number] Director: El Case PhD, Phone: [phone] Performed By: #### L 501.9187, L506.0400, L3100.5400, L3100.5055, L3410.9992, L501.91952, L501.9520, L501.9310 ####[facility] [address] [place], [address] FSH and LHon 09-08-2024 FSH 1.9 mIU/mL Normal [facility] Comment on above: Order Comment: MISC. FOR Result Comment: FEMA LE:Follicular: 1.4 - 18.1 mIU/mLMidcycle: 3.4 - 33.4 mIU/mLLuteal: 1.5 - 9.1 mIU/mLPost Menopause: 23.0 - 116.3 mIU/mLMALE: 1.4 - 18.1 mIU/mL Performed By: #### L 501.9187, L506.0400, L3100.5400, L3100.5055, L3410.9992, L501.33839, L501.9520, L501.9310 ####[facility] [address] [place], [address] LH 2.0 mIU/mL Normal [facility] Comment on above: Order Comment: MISC. FOR Result Comment: FEMA LE:Follicular: 1.9-12.5 mIU/mLMidcycle: 8.7-76.3 mIU/mLLuteal: 0.5-16.9 mIU/mLPost Menopause: 15.9-54.0 mIU/mLMALE:20-70 Years: 1.5-9.3 mIU/mL>70 Years: 3.1-34.6 mIU/mL Performed By: #### L 501.9187, L506.0400, L3100.5400, L3100.5055, L3410.9992, L501.81196, L501.9520, L501.9310 ####[facility] [address] [place], [place], [phone]) Free T3on 09-08-2024 Free T3 [Mass/Vol] 2.9 pg/mL Normal 2.18-3.98 [facility] Comment on above: Order Comment: MISC. FOR Performed By: #### L 501.9187, L506.0400, L3100.5400, L3100.5055, L3410.9992, L501.17967, L501.9520, L501.9310 ####[facility] [address] [place], [place], [id number] Free U9Slddtyi By: Rudy zavala on 09-08-2024 Free T3 [Mass/Vol] 2.9 pg/mL 2.18-3.98 [facility] L501.9187on 09-08-2024 T3 Total 1.17 ng/mL Normal 0.80-2.00 [facility] Comment on above: Order Comment: MISC. FOR Performed By: #### L 501.9187, L506.0400, L3100.5400, L3100.5055, L3410.9992, L501.28887, L501.9520, L501.9310 ####[facility] [address] [place], [address] LH ser/plasOrdered By: Rudy Branch on 09-08-2024 Lutropin Qn 2.0 m[IU]/mL [facility] Comment on above: FEMALE:Follicular: 1 .9-12.5 mIU/mLMidcycle: 8.7-76.3 mIU/mLLuteal: 0.5-16.9 mIU/mLPost Menopause: 15.9-54.0 mIU/mLMALE:20-70 Years: 1.5-9.3 mIU/mL>70 Years: 3.1-34.6 mIU/mL Orthopedic Visit Reporton Orthopedic Visit Report Normal [facility] Serum or plasma prolactin me asurement (mass/volume)Ordered By: Rudy Branch on 09-08-2024 Prolactin [Mass/Vol] 9.1 ng/mL 4.8-33.4 [facility] Comment on above: Performed at: [place] [id number] Director: El Case PhD, Phone: [phone] Serum or plasma triiodothyro nine (T3) measurement (mass/volume)Ordered By: Rudy Branch on 09-08-2024 T3 [Mass/Vol] 1.17 ng/mL 0.80-2.00 [facility] T4 Free Directon 09-08-2024 T4 FREE DIRECT 0.90 ng/dL Normal 0.76-1.46 [facility] Comment on above: Order Comment: MISC. FOR Performed By: #### L 501.9187, L506.0400, L3100.5400, L3100.5055, L3410.9992, L501.89201, L501.9520, L501.9310 ####[facility] [address] [place], [place], [id number] T4 Total, Thyroxinon 025 T4 [Mass/Vol] 6.6 ug/dL Normal 4.8-13.9 [facility] Comment on above: Order Comment: MISC. FOR Performed By: #### L 501.9187, L506.0400, L3100.5400, L3100.5055, L3410.9992, L501.71690, L501.9520, L501.9310 ####[facility] [address] [place], [place], [phone] T4 freeOrdered By: Rudy zavala on 09-08-2024 Free T4 [Mass/Vol] 0.90 ng/dL 0.76-1.46 [facility] TSH DL <= 0.005 mIU/L QnOrde red By: Rudy Branch on 09-08-2024 TSH Qn 0.677 uIU/mL 0.300-4.200 [facility] Thyroid Stim Hormone (TSH)on 09-08-2024 TSH 0.677 uIU/mL Normal 0.300-4.200 [facility] Comment on above: Order Comment: [facility] [place] Performed By: #### L 501.9187, L506.0400, L3100.5400, L3100.5055, L3410.9992, L501.30626, L501.9520, L501.9310 ####[facility] [address] [place], [place], [address] ThyroxineOrdered By: Rudy Daugherty on 09-08-2024 T4 [Mass/Vol] 6.6 ug/dL 4.8-13.9 [facility] Gastroenterology Visit Repor ton 08-08-2024 Gastroenterology Visit Report Normal [facility] Chest PA and Lateralon 07-19 Chest PA and Lateral Normal [facility] Emergency Department Summary on 07-19-2024 Emergency Department Summary Normal [facility] 12 Lead EKGon 07-16-2024 12 Lead EKG Normal [facility] Absolute lymphocyte countOrd ered By: Stewart Edmonds on 07-16-2024 Lymphocytes Auto (Unsp spec) [#/Vol] 2.17 10*3/uL 0.83-4.51 [facility] Absolute neutrophil countOrd ered By: Stewart Edmonds on 07-16-2024 Neutrophils (Bld) [#/Vol] 2.8 10*3/uL 2.0-7.7 [facility] Absolute neutrophil count 2.8 X10^3/uL 2.0-7.7 [facility] Anion gap [Moles/Vol]Ordered By: Stewart Edmonds on 07-16-2024 Anion gap in Serum or Plasma 12 08-10 [facility] Anion gap in Serum or Plasma Ordered By: Stewart Edmonds on 07-16-2024 Anion gap [Moles/Vol] 12 mmol/L 08-10 [facility] Automated lymphocyte count a s percentage of total leukocytesOrdered By: Stewart Edmonds on 07-16-2024 Lymphocytes/100 WBC Auto (Unsp spec) 37.7 % [facility] BUN/creatinine ratioOrdered By: Stewart Edmonds on 07-16-2024 Urea nitrogen/Creatinine [Mass ratio] 7.6 mg/mg Low 01-15 [facility] BUN/creatinine ratio 7.6 RATIO Low 01-15 [facility] Basic Metabolic Profile (BMP )on 07-16-2024 BUN/CRE 7.6 RATIO Low 10- [facility] Comment on above: Performed By: #### L 700.6800, L500.2500, L100.0100 ####[facility] [address] [place], [address] Calcium [Mass/Vol] 9.1 mg/dL Normal 7.6-11.0 [facility] Comment on above: Performed By: #### L 700.6800, L500.2500, L100.0100 ####[facility] [address] [place], [address] Chloride [Moles/Vol] 105 mmol/L Normal 98-108 [facility] Comment on above: Performed By: #### L 700.6800, L500.2500, L100.0100 ####[facility] [address] [place], [address] CO2 [Moles/Vol] 22.2 mmol/L Normal 21.0-32.0 [facility] Comment on above: Performed By: #### L 700.6800, L500.2500, L100.0100 ####[facility] [address] [place], [address] Creatinine [Mass/Vol] 0.76 mg/dL Normal 0.70-1.20 [facility] Comment on above: Performed By: #### L 700.6800, L500.2500, L100.0100 ####[facility] [address] [place], [address] ECRCL 102.81 ml/min Normal 50-250 [facility] Comment on above: Performed By: #### L 700.6800, L500.2500, L100.0100 ####[facility] [address] [place], [address] GAP 12 Normal 5-15 [facility] Comment on above: Performed By: #### L 700.6800, L500.2500, L100.0100 ####[facility] [address] [place], [address] GFR/1.73 sq M.predicted among non-blacks MDRD (S/P/Bld) [Vol rate/Area] 101 mL/min/{1.73_m2} Normal >60 [facility] Comment on above: Result Comment: mL/m in/1.73m2 CKD-EPI Creatinine Equation (2020) Performed By: #### L 700.6800, L500.2500, L100.0100 ####[facility] [address] [place], [address] Glucose [Mass/Vol] 134 mg/dL High 70-99 [facility] Comment on above: Performed By: #### L 700.6800, L500.2500, L100.0100 ####[facility] [address] [place], [address] Potassium [Moles/Vol] 3.5 mmol/L Normal 3.3-5.1 [facility] Comment on above: Performed By: #### L 700.6800, L500.2500, L100.0100 ####[facility] [address] [place], [address] Sodium [Moles/Vol] 139 mmol/L Normal 133-145 [facility] Comment on above: Performed By: #### L 700.6800, L500.2500, L100.0100 ####[facility] [address] [place], [address] Urea nitrogen [Mass/Vol] 6 mg/dL Normal 4-19 [facility] Comment on above: Performed By: #### L 700.6800, L500.2500, L100.0100 ####[facility] [address] [place], [address] Basophil percentageOrdered B y: Stewart Edmonds on 07-16-2024 Basophils/100 WBC (Bld) 0.5 % 0-1 [facility] Basophil percentage 0.5 % 0-1 [facility] Beta HCG ( test) Ql Ordered By: Stewart Edmonds on 07-16-2024 Serum beta-hCG test, qualitative Negative [facility] CBC W/Diff, Automatedon 06-28 Absolute Lymph 2.17 X10 3/uL Normal 0.83-4.51 [facility] Comment on above: Performed By: #### L 700.6800, L500.2500, L100.0100 ####[facility] [address] [place], [address] Absolute Neut 2.8 X10 3/uL Normal 2.0-7.7 [facility] Comment on above: Performed By: #### L 700.6800, L500.2500, L100.0100 ####[facility] [address] [place], [address] Basophils/100 WBC (Bld) 0.5 % Normal 0-1 [facility] Comment on above: Performed By: #### L 700.6800, L500.2500, L100.0100 ####[facility] [address] [place], [address] Eosinophils/100 WBC (Bld) 4.0 % Normal 0-5 [facility] Comment on above: Performed By: #### L 700.6800, L500.2500, L100.0100 ####[facility] [address] [place], [address] Erythrocyte distribution width (RBC) [Ratio] 13.0 % Normal 11.6-14.6 [facility] Comment on above: Performed By: #### L 700.6800, L500.2500, L100.0100 ####[facility] [address] [place], [address] Hematocrit (Bld) [Volume fraction] 39.2 % Normal 37-47 [facility] Comment on above: Performed By: #### L 700.6800, L500.2500, L100.0100 ####[facility] [address] [place], [address] Hemoglobin (Bld) [Mass/Vol] 13.1 g/dL Normal 12.0-15.0 [facility] Comment on above: Performed By: #### L 700.6800, L500.2500, L100.0100 ####[facility] [address] [place], [address] IG% 0.300 Normal 0.0-0.9 [facility] Comment on above: Result Comment: IG% - Immature Granulocytes (promyelocytes, myelocytes andmetamyelocytes) > 1% indicates that a LEFT SHIFT is Present. Performed By: #### L 700.6800, L500.2500, L100.0100 ####[facility] [address] [place], [address] Lymphocytes/100 WBC (Bld) 37.7 % Normal 19-41 [facility] Comment on above: Performed By: #### L 700.6800, L500.2500, L100.0100 ####[facility] [address] [place], [address] MCH (RBC) [Entitic mass] 28.2 pg Normal 27.0-32.0 [facility] Comment on above: Performed By: #### L 700.6800, L500.2500, L100.0100 ####[facility] [address] [place], [address] MCHC (RBC) [Mass/Vol] 33.4 g/dL Normal 32-36 [facility] Comment on above: Performed By: #### L 700.6800, L500.2500, L100.0100 ####[facility] [address] [place], [address] MCV (RBC) [Entitic vol] 84.3 fL Normal 81-99 [facility] Comment on above: Performed By: #### L 700.6800, L500.2500, L100.0100 ####[facility] [address] [place], [address] Monocytes/100 WBC (Bld) 9.5 % Normal 0-10 [facility] Comment on above: Performed By: #### L 700.6800, L500.2500, L100.0100 ####[facility] [address] [place], [address] Neutrophils/100 WBC (Bld) 48.0 % Normal 47-70 [facility] Comment on above: Performed By: #### L 700.6800, L500.2500, L100.0100 ####[facility] [address] [place], [address] Nucleated RBC (Bld) [#/Vol] 0 10*3/uL Normal 0-5 [facility] Comment on above: Performed By: #### L 700.6800, L500.2500, L100.0100 ####[facility] [address] [place], [address] Platelet mean volume (Bld) [Entitic vol] 8.9 fL Normal 6.2-12.0 [facility] Comment on above: Performed By: #### L 700.6800, L500.2500, L100.0100 ####[facility] [address] [place], [address] Platelets (Bld) [#/Vol] 256 10*3/uL Normal 150-450 [facility] Comment on above: Performed By: #### L 700.6800, L500.2500, L100.0100 ####[facility] [address] [place], [address] RBC (Bld) [#/Vol] 4.65 10*6/uL Normal 4.2-5.4 [facility] Comment on above: Performed By: #### L 700.6800, L500.2500, L100.0100 ####[facility] [address] [place], [address] RDW SD 39.5 fl Normal 35.1-43.9 [facility] Comment on above: Performed By: #### L 700.6800, L500.2500, L100.0100 ####[facility] [address] [place], [address] WBC (Bld) [#/Vol] 5.8 10*3/uL Normal 4.4-11.0 [facility] Comment on above: Performed By: #### L 700.6800, L500.2500, L100.0100 ####[facility] [address] [place], [address] Calcium [Mass/Vol]Ordered By : Stewart Edmonds on 07-16-2024 Serum or plasma calcium measurement (mass/volume) 9.1 mg/dL 7.6-11.0 [facility] Carbon dioxide, total [Moles /volume] in Central venous bloodOrdered By: Stewart Edmonds on 07-16-2024 CO2 [Moles/Vol] 22.2 mmol/L 21.0-32.0 [facility] Carbon dioxide, total [Moles/volume] in Central venous blood 22.2 mmol/L 21.0-32.0 [facility] Chest PA and Lateralon 07-16 Chest PA and Lateral Normal [facility] Chloride assayOrdered By: Brandan Edmonds on 07-16-2024 Chloride [Moles/Vol] 105 mmol/L 98-108 [facility] Chloride assay 105 mmol/L 98-108 [facility] Creatinine [Mass/Vol]Ordered By: Stewart Edmonds on 07-16-2024 Serum creatinine measurement (mass/volume) 0.76 mg/dL 0.70-1.20 [facility] Emergency Department Summary on 07-16-2024 Emergency Department Summary Normal [facility] Eosinophil percentageOrdered By: Stewart Edmonds on 07-16-2024 Eosinophils/100 WBC (Bld) 4.0 % 0-5 [facility] Eosinophil percentage 4.0 % 0-5 [facility] Erythrocyte distribution wid th (RBC) [Ratio]Ordered By: Stewart Edmonds on 07-16-2024 Erythrocyte distribution width ratio 13.0 % 11.6-14.6 [facility] Erythrocyte distribution width standard deviation 39.5 fl 35.1-43.9 [facility] Erythrocyte distribution wid th ratioOrdered By: Stewart Edmonds on 07-16-2024 Erythrocyte distribution width (RBC) [Ratio] 13.0 % 11.6-14.6 [facility] Erythrocyte distribution wid th standard deviationOrdered By: Stewart Edmonds on 07-16-2024 Erythrocyte distribution width (RBC) [Ratio] 39.5 fl 35.1-43.9 [facility] Estimation of creatinine celia aranceOrdered By: Stewart Edmonds on 07-16-2024 Estimation of creatinine clearance 102.81 ml/min 50-250 [facility] GFR/1.73 sq M.predicted lillie g non-blacks MDRD (S/P/Bld) [Vol rate/Area]Ordered By: Stewart Edmonds on 07-16-2024 Glomerular filtration rate (GFR) estimation/1.73 sq m using serum, plasma, or whole b 101 >60 [facility] Glomerular filtration rate ( GFR) estimation/1.73 sq m using serum, plasma, or whole bOrdered By: Stewart Edmonds on 07-16-2024 GFR/1.73 sq M.predicted among non-blacks MDRD (S/P/Bld) [Vol rate/Area] 101 mL/min/{1.73_m2} >60 [facility] Comment on above: mL/min/1.73m2 CKD-EP I Creatinine Equation (2020) Glucose [Mass/Vol]Ordered By : Stewart Edmonds on 07-16-2024 Serum glucose measurement (mass/volume) 134 mg/dL High 70-99 [facility] Hematocrit Auto (Bld) [Volum e fraction]Ordered By: Stewart Edmonds on 07-16-2024 Hematocrit (Bld) [Volume fraction] 39.2 % 37-47 [facility] Automated blood hematocrit (percentage) 39.2 % 37-47 [facility] Hemoglobin measurementOrdere d By: Stewart Edmonds on 07-16-2024 Hemoglobin (Bld) [Mass/Vol] 13.1 g/dL 12.0-15.0 [facility] Hemoglobin measurement 13.1 g/dL 12.0-15.0 [facility] Immature granulocytes/100 WB C Auto (Bld)Ordered By: Stewart Edmonds on 07-16-2024 Immature granulocytes/100 WBC (Bld) 0.300 % 0.0-0.9 [facility] Comment on above: IG% - Immature Granu locytes (promyelocytes, myelocytes and metamyelocytes) > 1% indicates that a LEFT SHIFT is Present. Automated immature granulocyte percentage 0.300 % 0.0-0.9 [facility] Influenza virus A and B and SARS-CoV-2 (COVID-19) and Respiratory syncytial virus RNAOrdered By: Stewart Edmonds on 07-16-2024 SARS-CoV-2 (COVID-19) RNA EL+probe Ql (Unsp spec) [facility] Lymphocytes Auto (Unsp spec) [#/Vol]Ordered By: Stewart Edmonds on 07-16-2024 Absolute lymphocyte count 2.17 X10^3/uL 0.83-4.51 [facility] Lymphocytes/100 WBC Auto (Un sp spec)Ordered By: Stewart Edmonds on 07-16-2024 Automated lymphocyte count as percentage of total leukocytes 37.7 % 19-41 [facility] M100.678on 07-16-2024 M100.678 SARS-CoV-2 (COVID 19 ) Negative INFLUENZA A Negative INFLUENZA B Negative RSV PCR Negative Normal [facility] Comment on above: Performed By: #### M 100.678 ####[facility] [address] [place], [place], [id number] MCV (RBC) [Entitic vol]Order ed By: Stewart Edmonds on 07-16-2024 MCV (mean corpuscular volume) determination 84.3 fL 81-99 [facility] MCV (mean corpuscular volume ) determinationOrdered By: Stewart Edmonds on 07-16-2024 MCV (RBC) [Entitic vol] 84.3 fL 81-99 [facility] Mean corpuscular hemoglobin (MCH) determinationOrdered By: Stewart Edmonds on 07-16-2024 MCH (RBC) [Entitic mass] 28.2 pg 27.0-32.0 [facility] Mean corpuscular hemoglobin (MCH) determination 28.2 pg 27.0-32.0 [facility] Mean corpuscular hemoglobin concentration (MCHC) determinationOrdered By: Stewart Edmonds on 07-16-2024 MCHC (RBC) [Mass/Vol] 33.4 g/dL 32-36 [facility] Mean corpuscular hemoglobin concentration (MCHC) determination 33.4 g/dL 32-36 [facility] Mean platelet volume determi nationOrdered By: Stewart Edmonds on 07-16-2024 Platelet mean volume (Bld) [Entitic vol] 8.9 fL 6.2-12.0 [facility] Mean platelet volume determination 8.9 fl 6.2-12.0 [facility] Monocyte percentageOrdered B y: Stewart Edmonds on 07-16-2024 Monocytes/100 WBC (Bld) 9.5 % 0-10 [facility] Monocyte percentage 9.5 % 0-10 [facility] Neutrophil percentageOrdered By: Stewart Edmonds on 07-16-2024 Neutrophils/100 WBC (Bld) 48.0 % 47-70 [facility] Neutrophil percentage 48.0 % 47-70 [facility] Nucleated red blood cell per centageOrdered By: Stewart Edmonds on 07-16-2024 Nucleated RBC/100 WBC (Bld) [Ratio] 0 % 0-5 [facility] Nucleated red blood cell percentage 0 % 0-5 [facility] Platelet countOrdered By: Brandan Edmonds on 07-16-2024 Platelets (Bld) [#/Vol] 256 10*3/uL 150-450 [facility] Platelet count 256 K/mm3 150-450 [facility] Potassium (Unsp spec) [Mass/ Vol]Ordered By: Stewart Edmonds on 07-16-2024 Potassium measurement (mass/volume) 3.5 mmol/L 3.3-5.1 [facility] Potassium measurement (mass/ volume)Ordered By: Stewart Edmonds on 07-16-2024 Potassium (Unsp spec) [Mass/Vol] 3.5 mmol/L 3.3-5.1 [facility] ,Serum,hCG Quali.on 07-16-2024 HCG, SERUM QUAL Negative Normal [facility] Comment on above: Performed By: #### L 700.6800, L500.2500, L100.0100 ####[facility] [address], [place], [id number] RBC Auto (Bld) [#/Vol]Ordere d By: Stewart Edmonds on 07-16-2024 RBC (Bld) [#/Vol] 4.65 10*6/uL 4.2-5.4 [facility] Automated blood erythrocyte count 4.65 M/mm3 4.2-5.4 [facility] Serum beta-hCG test, qualita tiveOrdered By: Stewart Edmonds on 07-16-2024 Beta HCG ( test) Ql Negative [facility] Serum creatinine measurement (mass/volume)Ordered By: Stewart Edmonds on 07-16-2024 Creatinine [Mass/Vol] 0.76 mg/dL 0.70-1.20 [facility] Serum glucose measurement (m ass/volume)Ordered By: Stewart Edmonds on 07-16-2024 Glucose [Mass/Vol] 134 mg/dL High 70-99 [facility] Serum or plasma calcium kaylan urement (mass/volume)Ordered By: Stewart Edmonds on 07-16-2024 Calcium [Mass/Vol] 9.1 mg/dL 7.6-11.0 [facility] Serum or plasma urea nitroge n measurement (mass/volume)Ordered By: Stewart Edmonds on 07-16-2024 Urea nitrogen [Mass/Vol] 6 mg/dL 07-15 [facility] Sodium levelOrdered By: Stewart Edmonds on 07-16-2024 Sodium [Moles/Vol] 139 mmol/L 133-145 [facility] Sodium level 139 mmol/L 133-145 [facility] Urea nitrogen [Mass/Vol]Orde red By: Stewart Edmonds on 07-16-2024 Serum or plasma urea nitrogen measurement (mass/volume) 6 mg/dL - [facility] White blood cell (WBC) count Ordered By: Stewart Edmonds on 07-16-2024 WBC (Bld) [#/Vol] 5.8 10*3/uL 4.4-11.0 [facility] White blood cell (WBC) count 5.8 K/mm3 4.4-11.0 [facility] ANTI MULLERIAN HORMONEon Anti-Mullerian Hormone 1.135 ng/mL Normal <=7.360 O [facility] Comment on above: Performed By: #### Y AMH #### [facility] (DEFAULT) [address] [place] [address] [place] 125on 07-10-2024 Cancer Ag 125 Qn 10 [arb'U]/mL NINF - 30 U/mL [facility] Comment on above: This test was perfor med on the [employer] IM Immunoassay platform which is a 2-step sandwich chemiluminescent immunoassay. It is important to note that assays using different manufacturers and/or methods may not be comparable. Interpretation and review of laboratory results Normal [facility] [place]-125 10 U/mL Normal <=[address] [facility] Comment on above: Result Comment: This test was performed on the [employer] Immunoassay platform which is a 2-step sandwich chemiluminescent immunoassay. It is important to note that assays using different manufacturers and/or methods may not be comparable. Performed By: #### C A125N #### [facility] (DEFAULT) [address] [address] ESTRADIOL, ENHANCEDon 2024 E2 [Mass/Vol] 104.4 pg/mL [facility] Comment on above: Reference Range: Male 19+ years: <11.8-39.8 Menstruating Females: Follicular phase: 19.5-144.2 Midcycle peak: 63.9-356.7 Luteal phase: 55.8-214.2 Post-menopausal: <11.8-32.2 This test is not recommended for patients receiveing Fulvestrant (Falsodex) due to possible false elevations. EE2 levels vary widely throughout the menstrual cycle. Estradiol, Enhanced 104.4 pg/mL Normal [facility] Comment on above: Result Comment: Refe rence Range: Male 19+ years: <11.8-39.8 Menstruating Females: Follicular phase: 19.5-144.2 Midcycle peak: 63.9-356.7 Luteal phase: 55.8-214.2 Post-menopausal: <11.8-32.2 This test is not recommended for patients receiveing Fulvestrant (Falsodex) due to possible false elevations. EE2 levels vary widely throughout the menstrual cycle. Performed By: #### E E2B, FSH #### [facility] (DEFAULT) [address] [address] FSHon 07-10-2024 Follitropin Qn 4.6 m[IU]/mL mIU/mL [facility] Comment on above: Reference Range: Adult Male: <18.1 mIU/mL Adult Female: Follicular: 2.5-10.2 mIU/mL Midcycle: 3.4-33.4 mIU/mL Luteal: 1.5-9.1 mIU/mL : <0.3 mIU/mL Post Menopausal: 23.0-116.3 mIU/mL FSH 4.6 mIU/mL Normal [facility] Comment on above: Result Comment: Oneyda guy Range: Adult Male: <18.1 mIU/mL Adult Female: Follicular: 2.5-10.2 mIU/mL Midcycle: 3.4-33.4 mIU/mL Luteal: 1.5-9.1 mIU/mL : <0.3 mIU/mL Post Menopausal: 23.0-116.3 mIU/mL Performed By: #### E E2B, FSH #### [facility] (DEFAULT) [address] [place] [address] HEMOGLOBIN A1Con 07-10-2024 Average glucose Estimated from glycated hemoglobin (Bld) [Mass/Vol] 108 mg/dL [facility] HbA1c (Bld) [Mass fraction] 5.4 % 4.7 - 5.6 % [facility] Glucose [Mass/Vol] 108 mg/dL Normal [facility] Comment on above: Performed By: #### A 1CB #### [facility] (DEFAULT) [address] [place] [address] Hemoglobin A1C HPLC 5.4 % Normal 4.7-5.[address] [facility] Comment on above: Performed By: #### A 1CB #### [facility] (DEFAULT) [address] [place] [address] No Panel Informationon 07-10 [facility] T4 FREEon 07-10-2024 Free T4 [Mass/Vol] 0.98 ng/dL 0.89 - 1. 76 ng/dL [facility] Interpretation and review of laboratory results Normal [facility] Free T4 [Mass/Vol] 0.98 ng/dL Normal 0.89-1.76 [facility] Comment on above: Performed By: #### T SH, FT4 #### [facility] (DEFAULT) [address] [place] [address] TSHon 07-10-2024 Interpretation and review of laboratory results Abnormal [facility] TSH Qn 0.352 m[IU]/L Low [facility] TSH 0.352 uIU/mL Low 0.550-4.[address] [facility] Comment on above: Performed By: #### T , FT4 #### [facility] (DEFAULT) [address] [place] [address] Pelvic (Non )on Pelvic (Non ) Normal [facility] L3410.9998on 06-15-2024 [facility] Misc. COMMENT Normal . [facility] Comment on above: Order Comment: RED T OP TUBE FRZ [id number] ANTI ADALIMUMAB AB Result Comment: Test Ordered: [id number] Adalimumab Drug + AntibodyAdalimumab Drug Level 6.7 ug/mL ES Reference Range: .Quantitation Limit: <0.6 ug/mLResults of 0.6 or higher indicate detection of adalimumab.Comments: - The optimal drug concentration depends upon patient- specific factors including the disease and desired therapeutic endpoint. - Maintenance trough concentrations >=7.5 may correspond to higher remission rates.(1) - Mucosal healing may be more likely in patients with maintenance trough levels >8.14.(2) - In rheumatoid arthritis, trough levels of 5-8 are associated with clinical (EULAR) response.(3) - This assay measures the antibody-unbound (free) fraction of adalimumab when serum anti-adalimumab antibodies are present.Anti-Adalimumab Antibody 29 ng/mL ES Reference Range: . Interpretation: The above result is a LOW Antibody titer Quantitation Limit: <25 ng/mL. Results of 25 or higher indicate detection of anti- adalimumab antibodies. 25 - 100 ng/mL: LOW titer 101 - 300 ng/mL: INTERMEDIATE titer 301 or greater ng/mL: HIGH titerComments: - Anti-drug antibody levels should be interpreted in the context of the concomitant free drug trough concentration. - Low anti-drug antibodies may be transient while high titers are likely to be more consequential.(4-6) - Some immunogenicity is reversible. Elimination of intermediate titer (and even some high titer) anti-adalimumab antibodies has been achieved with dose escalation and/or methotrexate or 6-MP.(7) - This anti-adalimumab antibody assay is drug tolerant, and all positive results are verified for anti-drug specificity by a confirmatory test.References:1. Deniz Do et al. AGA Review on TDM in IBD. Gastroenterol 2017;153:835-857.2. Delma E, et al. J Crohns Col 2016;10(5):510-515.3. Rosalio MF, et al. [facility] Rheum Dis 2015;74:513-518.4. Sathya CLAUDIO, et al. ADRIAN 2011;305(14):4281-0048.5. Steenholdt C, et al. J Clin Gastroenterol 2016; 50:482-489.6. Hazel H, et al. Clin Gastroenterol Hepatol 2015; 13(3):522-530.7. Jai A, et al. Gastroenterol 2019;156(6):S-617.These tests were developed and their performancecharacteristics determined by [employer]. They have not beencleared or approved by the Food and Drug Administration.However, these electrochemiluminescence immunoassay (ECLIA)measurements of adalimumab and anti-adalimumab antibody(constituting DoseASSURE ADL) have been developed andvalidated in accordance with CLIA (Clinical LaboratoryImprovement Amendments) and the FDA Guidance document, AssayDevelopment and Validation for Immunogenicity Testing ofTherapeutic Protein Products (2019).Performed at: ES - [facility] [address] [place], [place] [id number] Director: Magdi Brock MD, Phone: [phone] at: - [facility] [address] [id number] Director: El Case PhD, Phone: [phone] Performed By: #### L 3410.9998 ####[facility] [address] [place], [address] Citric Acid, 24 HR URon 03-1 CITRIC ACID,U24 7 mg/24 hr Low 320-1240 [facility] Comment on above: Order Comment: Test( s) 383161-Pkppbd Acid, Urinewas developed and its performance characteristicsdetermined by [facility]. It has not been cleared or approvedby the Food and Drug Administration. Result Comment: Perf ormed at: - [facility] [id number] [place], [place] [id number] Director: El Case PhD, Phone: [phone] at: - [facility] [id number] Director: Miguel Fay MD, Phone: [phone] Performed By: #### L 501.5280, L3600.6000, L501.5200, L501.2300, L500.7000, L500.4050, L509.1000, L3700.2300 ####[facility] [address] [place], [address] CITRIC ACID,UR 4 mg/L Normal Undefined [facility] Comment on above: Order Comment: Test( s) 050235-Vqlerv Acid, Urinewas developed and its performance characteristicsdetermined by [facility]. It has not been cleared or approvedby the Food and Drug Administration. Performed By: #### L 501.5280, L3600.6000, L501.5200, L501.2300, L500.7000, L500.4050, L509.1000, L3700.2300 ####[facility] [address] [place], [address] Uric Acid, 24 HR URon 2024 URIC ACID,U 24h 476.9 mg/24 hr Normal 173.7-902.1 [facility] Comment on above: Order Comment: Test( s) 432227-Ycjbco Acid, Urinewas developed and its performance characteristicsdetermined by [facility]. It has not been cleared or approvedby the Food and Drug Administration. Performed By: #### L 501.5280, L3600.6000, L501.5200, L501.2300, L500.7000, L500.4050, L509.1000, L3700.2300 ####[facility] [address] [place], [address] URIC ACID,URINE 28.9 mg/dL Normal Not Estab. [facility] Comment on above: Order Comment: Test( s) 270535-Fgwrrb Acid, Urinewas developed and its performance characteristicsdetermined by [facility]. It has not been cleared or approvedby the Food and Drug Administration. Performed By: #### L 501.5280, L3600.6000, L501.5200, L501.2300, L500.7000, L500.4050, L509.1000, L3700.2300 ####[facility] [address] [place], [address] Anti-dsDNA Abon 06-12-2024 ANTI-DNA (DS)AB <1 Normal 0-9 [facility] Comment on above: Result Comment: Nega tive <5 Equivocal 5 - 9 Positive >9Performed at: [place] [id number] Director: El Case PhD, Phone: [phone] Performed By: #### L 3410.1300, L3100.5506 ####[facility] [address] [place], [place], [phone] Blank Abon 06-12-2024 BLANK Ab <0.2 Normal 0.0-0.9 [facility] Comment on above: Result Comment: AMENDED REPORT 06/12/24 1307 BLANK Ab previously reported as: Test not performed Performed By: #### L 3410.1300, L3100.5500 ####[facility] [address] [place], [address] Calcium, Urine 24HRon 2024 24HR UR Calcium 79.2 mg/24 HR Normal 42.0-353.0 [facility] Comment on above: Performed By: #### L 501.5280, L3600.6000, L501.5200, L501.2300, L500.7000, L500.4050, L509.1000, L3700.2300 ####[facility] [address] [place], [address] Urine Calcium 4.8 mg/dL Normal Not Estab. [facility] Comment on above: Performed By: #### L 501.5280, L3600.6000, L501.5200, L501.2300, L500.7000, L500.4050, L509.1000, L3700.2300 ####[facility] [address] [place], [address] Calprotectin, Stoolon [address] 11 ug/g Normal 0-120 [facility] Comment on above: Result Comment: Conc entration Interpretation Follow-Up< 5 - 50 ug/g Normal None>50 -120 ug/g Borderline Re-evaluate in 4-6 weeks >120 ug/g Abnormal Repeat as clinically indicatedPerformed at: [facility] [address] [id number] Director: Miguel Fay MD, Phone: [phone] Performed By: #### L 7000.0700, M100.6796 ####[facility] [address] [place], [address] 24 hour urine calcium measur ement (mass/time)Ordered By: Andrei Holt on 06-08-2024 Calcium (24H U) [Mass/Time] 79.2 mg/24 HR 42.0-353.0 [facility] 24 hour urine citric acid me asurement (mass/time)Ordered By: Andrei Holt on 06-08-2024 Citrate (24H U) [Mass/Time] 7 mg/24 hr Low 320-1240 [facility] Comment on above: Performed at: [facility] - [facility] [address] [id number] Director: El Case PhD, Phone: [phone] at: [facility] [address] [id number] Director: Miguel Fay MD, Phone: [phone] 24 hour urine sodium measure ment (mass/time)Ordered By: Andrei Holt on 06-08-2024 Sodium (24H U) [Mass/Time] 76 mmol/24h 40-220 [facility] 24 hour urine specimen volum e measurementOrdered By: Andrei Holt on 06-08-2024 Specimen volume (24H U) 1.65 L [facility] Comment on above: *Additional results available. Contact laboratory/see report* 24 hour urine uric acid kaylan urement (mass/volume)Ordered By: Andrei Holt on 06-08-2024 Urate (24H U) [Mass/Vol] 476.9 mg/24 hr 173.7-902.1 [facility] ALP [Catalytic activity/Vol] Ordered By: Andrei Holt on 06-08-2024 Serum or plasma alkaline phosphatase measurement 71 U/L 35-104 [facility] ALT [Catalytic activity/Vol] Ordered By: Andrei Holt on 06-08-2024 Serum or plasma alanine aminotransferase (ALT) measurement 29 U/L <35 [facility] Albumin [Mass/Vol]Ordered By : Andrei Holt on 06-08-2024 Serum or plasma albumin measurement (mass/volume) 4.1 g/dL 3.5-5.0 [facility] Albumin/Globulin [Mass ratio ]Ordered By: Andrei Holt on 06-08-2024 Serum or plasma albumin/globulin mass ratio 1.4 RATIO 0.9-2.4 [facility] Anion gap [Moles/Vol]Ordered By: Andrei Holt on 06-08-2024 Anion gap in Serum or Plasma 12 5-15 [facility] Anion gap in Serum or Plasma Ordered By: Andrei Holt on 06-08-2024 Anion gap [Moles/Vol] 12 mmol/L 5-15 [facility] BUN/creatinine ratioOrdered By: Andrei Holt on 06-08-2024 Urea nitrogen/Creatinine [Mass ratio] 9.9 mg/mg Low 10-20 [facility] BUN/creatinine ratio 9.9 RATIO Low 10-20 [facility] Bilirubin, totalOrdered By: Andrei Holt on 06-08-2024 Bilirubin [Mass/Vol] 0.32 mg/dL 0.00-1.30 [facility] Bilirubin, total 0.32 mg/dL 0.00-1.30 [facility] Calcium (24H U) [Mass/Time]O rdered By: Andrei Holt on 06-08-2024 Urine Calcium 24 Hour 79.2 mg/24 HR 42.0-353.0 [facility] 24 hour urine calcium measurement (mass/time) 79.2 mg/24 HR 42.0-353.0 [facility] Calcium (U) [Mass/Vol]Ordere d By: Andrei Holt on 06-08-2024 Urine Calcium 4.8 mg/dL Not Estab. [facility] Urine calcium measurement (mass/volume) 4.8 mg/dL Not Estab. [facility] Calcium [Mass/Vol]Ordered By : Andrei Holt on 06-08-2024 Serum or plasma calcium measurement (mass/volume) 9.1 mg/dL 7.6-11.0 [facility] Carbon dioxide, total [Moles /volume] in Central venous bloodOrdered By: Andrei Holt on 06-08-2024 CO2 [Moles/Vol] 22.7 mmol/L 21.0-32.0 [facility] Carbon dioxide, total [Moles/volume] in Central venous blood 22.7 mmol/L 21.0-32.0 [facility] Chloride assayOrdered By: Nicki Holt on 06-08-2024 Chloride [Moles/Vol] 102 mmol/L 98-108 [facility] Chloride assay 102 mmol/L 98-108 [facility] Chloride ur 24hrOrdered By: Andrei Holt on 06-08-2024 Urine Chloride 24 Hour 73 mmol/24h Low 110-250 [facility] Chloride ur 24hr 73 mmol/24h Low 110-250 [facility] Citrate (24H U) [Mass/Time]O rdered By: Andrei Holt on 06-08-2024 Urine Citric Acid 24 Hour 7 mg/24 hr Low 320-1240 [facility] Comment on above: Performed at: [address] [id number] Director: El Case PhD, Phone: [phone] at: BN - [facility] [address] [id number] Director: Miguel Fay MD, Phone: [phone] 24 hour urine citric acid measurement (mass/time) 7 mg/24 hr Low 320-1240 [facility] Collection time (Sally) [Date/ time]Ordered By: Andrei Holt on 06-08-2024 Urine Collection Time 24.0 HR 24.0-24.0 [facility] 24.0 HR 24.0-24.0 [facility] Comprehensive Metabolic Prof ilon 06-08-2024 Albumin [Mass/Vol] 4.1 g/dL Normal 3.5-5.0 [facility] Comment on above: Performed By: #### L 501.5280, L3600.6000, L501.5200, L501.2300, L500.7000, L500.4050, L509.1000, L3700.2300 ####[facility] [address] [place], [place], [phone] Albumin/Globulin [Mass ratio] 1.4 {ratio} Normal 0.9-2.4 [facility] Comment on above: Performed By: #### L 501.5280, L3600.6000, L501.5200, L501.2300, L500.7000, L500.4050, L509.1000, L3700.2300 ####[facility] [address] [place], [place], [phone] ALK PHOS 71 U/L Normal 35-104 [facility] Comment on above: Performed By: #### L 501.5280, L3600.6000, L501.5200, L501.2300, L500.7000, L500.4050, L509.1000, L3700.2300 ####[facility] [address] [place], [address] ALT [Catalytic activity/Vol] 29 U/L Normal <=34 [facility] Comment on above: Performed By: #### L 501.5280, L3600.6000, L501.5200, L501.2300, L500.7000, L500.4050, L509.1000, L3700.2300 ####[facility] [address] [place], [address] AST [Catalytic activity/Vol] 28 U/L Normal <=31 [facility] Comment on above: Performed By: #### L 501.5280, L3600.6000, L501.5200, L501.2300, L500.7000, L500.4050, L509.1000, L3700.2300 ####[facility] [address] [place], [address] Bilirubin [Mass/Vol] 0.32 mg/dL Normal 0.00-1.30 [facility] Comment on above: Performed By: #### L 501.5280, L3600.6000, L501.5200, L501.2300, L500.7000, L500.4050, L509.1000, L3700.2300 ####[facility] [address] [place], [place], [phone] BUN/CRE 9.9 RATIO Low 10-20 [facility] Comment on above: Performed By: #### L 501.5280, L3600.6000, L501.5200, L501.2300, L500.7000, L500.4050, L509.1000, L3700.2300 ####[facility] [address] [place], [address] Calcium [Mass/Vol] 9.1 mg/dL Normal 7.6-11.0 [facility] Comment on above: Performed By: #### L 501.5280, L3600.6000, L501.5200, L501.2300, L500.7000, L500.4050, L509.1000, L3700.2300 ####[facility] [address] [place], [place], [phone] Chloride [Moles/Vol] 102 mmol/L Normal 98-108 [facility] Comment on above: Performed By: #### L 501.5280, L3600.6000, L501.5200, L501.2300, L500.7000, L500.4050, L509.1000, L3700.2300 ####[facility] [address] [place], [place], [phone] CO2 [Moles/Vol] 22.7 mmol/L Normal 21.0-32.0 [facility] Comment on above: Performed By: #### L 501.5280, L3600.6000, L501.5200, L501.2300, L500.7000, L500.4050, L509.1000, L3700.2300 ####[facility] [address] [place], [place], [phone] Creatinine [Mass/Vol] 0.66 mg/dL Low 0.70-1.20 [facility] Comment on above: Performed By: #### L 501.5280, L3600.6000, L501.5200, L501.2300, L500.7000, L500.4050, L509.1000, L3700.2300 ####[facility] [address] [place], [place], [phone] ECRCL 116.60 ml/min Normal 50-250 [facility] Comment on above: Performed By: #### L 501.5280, L3600.6000, L501.5200, L501.2300, L500.7000, L500.4050, L509.1000, L3700.2300 ####[facility] [address] [place], [address] GAP 12 Normal 5-15 [facility] Comment on above: Performed By: #### L 501.5280, L3600.6000, L501.5200, L501.2300, L500.7000, L500.4050, L509.1000, L3700.2300 ####[facility] [address] [place], [address] GFR/1.73 sq M.predicted among non-blacks MDRD (S/P/Bld) [Vol rate/Area] 114 mL/min/{1.73_m2} Normal >60 [facility] Comment on above: Result Comment: mL/m in/1.73m2 CKD-EPI Creatinine Equation (2020) Performed By: #### L 501.5280, L3600.6000, L501.5200, L501.2300, L500.7000, L500.4050, L509.1000, L3700.2300 ####[facility] [address] [place], [address] Globulin (S) [Mass/Vol] 3.1 g/dL Normal 2.2-4.2 [facility] Comment on above: Performed By: #### L 501.5280, L3600.6000, L501.5200, L501.2300, L500.7000, L500.4050, L509.1000, L3700.2300 ####[facility] [address] [place], [address] Glucose [Mass/Vol] 92 mg/dL Normal 70-99 [facility] Comment on above: Performed By: #### L 501.5280, L3600.6000, L501.5200, L501.2300, L500.7000, L500.4050, L509.1000, L3700.2300 ####[facility] [address] [place], [address] Potassium [Moles/Vol] 3.8 mmol/L Normal 3.3-5.1 [facility] Comment on above: Performed By: #### L 501.5280, L3600.6000, L501.5200, L501.2300, L500.7000, L500.4050, L509.1000, L3700.2300 ####[facility] [address] [place], [address] Sodium [Moles/Vol] 137 mmol/L Normal 133-145 [facility] Comment on above: Performed By: #### L 501.5280, L3600.6000, L501.5200, L501.2300, L500.7000, L500.4050, L509.1000, L3700.2300 ####[facility] [address] [place], [address] T PROT 7.2 g/dL Normal 5.9-8.4 [facility] Comment on above: Performed By: #### L 501.5280, L3600.6000, L501.5200, L501.2300, L500.7000, L500.4050, L509.1000, L3700.2300 ####[facility] [address] [place], [address] Urea nitrogen [Mass/Vol] 6 mg/dL Normal 4-19 [facility] Comment on above: Performed By: #### L 501.5280, L3600.6000, L501.5200, L501.2300, L500.7000, L500.4050, L509.1000, L3700.2300 ####[facility] [address] [place], [address] Creatinine [Mass/Vol]Ordered By: Andrei Holt on 06-08-2024 Serum creatinine measurement (mass/volume) 0.66 mg/dL Low 0.70-1.20 [facility] DNA double strand Ab Qn (S)O rdered By: Rudy Branch on 06-08-2024 Anti-Double Strand DNA Antibody <1 IU/mL 0-9 [facility] Comment on above: Negative <5 Equivoca l 5 - 9 Positive >9Performed at: [facility] [address] [id number] Director: El Case PhD, Phone: [phone] Serum DNA double strand antibody assay (units/volume) <1 IU/mL 0-9 [facility] Electrolytes, 24 HR URon UR CL/24 hr 73 mmol/24h Low 110-250 [facility] Comment on above: Performed By: #### L 501.5280, L3600.6000, L501.5200, L501.2300, L500.7000, L500.4050, L509.1000, L3700.2300 ####[facility] [address] [place], [place], [id number] UR K/24 HR 42.9 mmol/24h Normal 25-125 [facility] Comment on above: Performed By: #### L 501.5280, L3600.6000, L501.5200, L501.2300, L500.7000, L500.4050, L509.1000, L3700.2300 ####[facility] [address] [place], [place], [id number] UR NA/24HR 76 mmol/24h Normal 40-220 [facility] Comment on above: Performed By: #### L 501.5280, L3600.6000, L501.5200, L501.2300, L500.7000, L500.4050, L509.1000, L3700.2300 ####[facility] [address] [place], [place], [phone] UR TOTAL VOLUME 1650 mL Normal [facility] Comment on above: Performed By: #### L 501.5280, L3600.6000, L501.5200, L501.2300, L500.7000, L500.4050, L509.1000, L3700.2300 ####[facility] [address] [place], [place], [id number] Estimation of creatinine celia aranceOrdered By: Andrei Holt on 06-08-2024 Estimated Creatinine Clearance Calc 116.60 ml/min 50-250 [facility] Estimation of creatinine clearance 116.60 ml/min 50-250 [facility] GFR/1.73 sq M.predicted lillie g non-blacks MDRD (S/P/Bld) [Vol rate/Area]Ordered By: Andrei Holt on 06-08-2024 Estimated GFR (MDRD) Non-Af Amer 114 >60 [facility] Comment on above: mL/min/1.73m2 CKD-EP I Creatinine Equation (2020) Glomerular filtration rate (GFR) estimation/1.73 sq m using serum, plasma, or whole b 114 >60 [facility] Glomerular filtration rate ( GFR) estimation/1.73 sq m using serum, plasma, or whole bOrdered By: Andrei Holt on 06-08-2024 GFR/1.73 sq M.predicted among non-blacks MDRD (S/P/Bld) [Vol rate/Area] 114 mL/min/{1.73_m2} >60 [facility] Comment on above: mL/min/1.73m2 CKD-EP I Creatinine Equation (2020) Glucose [Mass/Vol]Ordered By : Andrei Holt on 06-08-2024 Serum glucose measurement (mass/volume) 92 mg/dL 70-99 [facility] Laboratory - Chemistry and C hemistry - challengeOrdered By: Andrei Holt on 06-08-2024 AST [Catalytic activity/Vol] 28 U/L <32 [facility] pH (U) 1 [pH] [facility] Laboratory - Specimen inform ationOrdered By: Andrei Holt on 06-08-2024 Collection time (Sally) [Date/time] 24.0 HR 24.0-24.0 [facility] Magnesiumon 06-08-2024 Magnesium [Mass/Vol] 2.1 mg/dL Normal 1.5-2.2 [facility] Comment on above: Performed By: #### L 501.5280, L3600.6000, L501.5200, L501.2300, L500.7000, L500.4050, L509.1000, L3700.2300 ####[facility] [address] [place], [place], [id number] Magnesium (Unsp spec) [Mass/ Vol]Ordered By: Andrei Holt on 06-08-2024 Magnesium [Mass/Vol] 2.1 mg/dL 1.5-2.2 [facility] Magnesium measurement (mass/volume) 2.1 mg/dL 1.5-2.2 [facility] Magnesium measurement (mass/ volume)Ordered By: Andrei Holt on 06-08-2024 Magnesium (Unsp spec) [Mass/Vol] 2.1 mg/dL 1.5-2.2 [facility] No Panel InformationOrdered By: Andrei Holt on 06-08-2024 28 U/L <32 [facility] 1 [facility] PTH intactOrdered By: Andrei villalta on 06-08-2024 Parathyroid Hormone (Intact) 42 pg/mL [facility] PTH intact 42 pg/mL [facility] PTHINon 06-08-2024 PTH 42 pg/mL Normal [facility] Comment on above: Performed By: #### L 501.5280, L3600.6000, L501.5200, L501.2300, L500.7000, L500.4050, L509.1000, L3700.2300 ####[facility] [address] [place], [address] Phosphoruson 06-08-2024 Phosphate [Mass/Vol] 2.6 mg/dL Low 2.7-4.5 [facility] Comment on above: Performed By: #### L 501.5280, L3600.6000, L501.5200, L501.2300, L500.7000, L500.4050, L509.1000, L3700.2300 ####[facility] [address] [place], [address] Potassium (U) [Moles/Vol]Ord ered By: Andrei Holt on 06-08-2024 Urine Potassium 26.0 mmol/L Not Establ. [facility] Urine potassium measurement (moles/volume) 26.0 mmol/L Not Establ. [facility] Potassium (Unsp spec) [Mass/ Vol]Ordered By: Andrei Holt on 06-08-2024 Potassium [Moles/Vol] 3.8 mmol/L 3.3-5.1 [facility] Potassium measurement (mass/volume) 3.8 mmol/L 3.3-5.1 [facility] Potassium measurement (mass/ volume)Ordered By: Andrei Holt on 06-08-2024 Potassium (Unsp spec) [Mass/Vol] 3.8 mmol/L 3.3-5.1 [facility] Potassium urine 24hrOrdered By: Andrei Holt on 06-08-2024 Urine Potassium 24 Hour 42.9 mmol/24h 25-125 [facility] Potassium urine 24hr 42.9 mmol/24h 25-125 [facility] Serum DNA double strand anti body assay (units/volume)Ordered By: Rudy Branch on 06-08-2024 DNA double strand Ab Qn (S) [IU]/mL 0-9 [facility] Comment on above: Negative <5 Equivoca l 5 - 9 Positive >9Performed at: [facility] [id number] Director: El Case PhD, Phone: [phone] Serum creatinine measurement (mass/volume)Ordered By: Andrei Holt on 06-08-2024 Creatinine [Mass/Vol] 0.66 mg/dL Low 0.70-1.20 [facility] Serum globulin measurementOr dered By: Andrei Holt on 06-08-2024 Globulin (S) [Mass/Vol] 3.1 g/dL 2.2-4.2 [facility] Serum globulin measurement 3.1 g/dL 2.2-4.2 [facility] Serum glucose measurement (m ass/volume)Ordered By: Andrei Holt on 06-08-2024 Glucose [Mass/Vol] 92 mg/dL 70-99 [facility] Serum or plasma alanine benavidez otransferase (ALT) measurementOrdered By: Andrei Holt on 06-08-2024 ALT [Catalytic activity/Vol] 29 U/L <35 [facility] Serum or plasma albumin kaylan urement (mass/volume)Ordered By: Andrei Holt on 06-08-2024 Albumin [Mass/Vol] 4.1 g/dL 3.5-5.0 [facility] Serum or plasma albumin/glob ulin mass ratioOrdered By: Andrei Holt on 06-08-2024 Albumin/Globulin [Mass ratio] 1.4 {ratio} 0.9-2.4 [facility] Serum or plasma alkaline joseph sphatase measurementOrdered By: Andrei Holt on 06-08-2024 ALP [Catalytic activity/Vol] 71 U/L 35-104 [facility] Serum or plasma calcium kaylan urement (mass/volume)Ordered By: Andrei Holt on 06-08-2024 Calcium [Mass/Vol] 9.1 mg/dL 7.6-11.0 [facility] Serum or plasma urea nitroge n measurement (mass/volume)Ordered By: Andrei Holt on 06-08-2024 Urea nitrogen [Mass/Vol] 6 mg/dL 4-19 [facility] Serum phosphorus measurement Ordered By: Andrei Holt on 06-08-2024 Phosphorus Level 2.6 mg/dL Low 2.7-4.5 [facility] Serum phosphorus measurement 2.6 mg/dL Low 2.7-4.5 [facility] Blank antibody assayOrdered By: Rudy Branch on 06-08-2024 SM Antibody TNP [facility] Comment on above: Test not performed SM Antibody <0.2 AI 0.0-0.9 [facility] Comment on above: Previous reported re sult: TNP AIEdited by: DULCE on 06/12/24:1307 AMENDED REPORT 06/12/24 1307 NICOLE Ab previously reported as: Test not performed Blank antibody assay <0.2 AI 0.0-0.9 [facility] Sodium (24H U) [Mass/Time]Or dered By: Andrei Holt on 06-08-2024 Urine Sodium 24 Hour 76 mmol/24h 40-220 [facility] 24 hour urine sodium measurement (mass/time) 76 mmol/24h 40-220 [facility] Sodium (U) [Moles/Vol]Ordere d By: Andrei Holt on 06-08-2024 Urine sodium measurement (moles/volume) 46 mmol/L Not Establ. [facility] Sodium levelOrdered By: Andrei Holt on 06-08-2024 Sodium [Moles/Vol] 137 mmol/L 133-145 [facility] Sodium level 137 mmol/L 133-145 [facility] Specimen volume (24H U)Order ed By: Andrei Holt on 06-08-2024 Urine Total Volume 1650 mL [facility] Comment on above: *Additional results available. Contact laboratory/see report* 24 hour urine specimen volume measurement 1650 ml [facility] Total proteinOrdered By: Efren Holt on 06-08-2024 Protein [Mass/Vol] 7.2 g/dL 5.9-8.4 [facility] Total protein 7.2 g/dL 5.9-8.4 [facility] Urate (24H U) [Mass/Vol]Orde red By: Andrei Holt on 06-08-2024 Urine Uric Acid 24 Hour 476.9 mg/24 hr 173.7-902.1 [facility] 24 hour urine uric acid measurement (mass/volume) 476.9 mg/24 hr 173.7-902.1 [facility] Urate (U) [Mass/Vol]Ordered By: Andrei Holt on 06-08-2024 Urine Uric Acid 28.9 mg/dL Not Estab. [facility] Urine uric acid measurement (mass/volume) 28.9 mg/dL Not Estab. [facility] Urea nitrogen [Mass/Vol]Orde red By: Andrei Holt on 06-08-2024 Serum or plasma urea nitrogen measurement (mass/volume) 6 mg/dL 4-19 [facility] Urine calcium measurement (m ass/volume)Ordered By: Andrei Holt on 06-08-2024 Calcium (U) [Mass/Vol] 4.8 mg/dL Not Estab. [facility] Urine chloride measurement ( units/volume)Ordered By: Andrei Holt on 06-08-2024 Urine Chloride 44 mmol/L Not Establ. [facility] Urine chloride measurement (units/volume) 44 mmol/L Not Establ. [facility] Urine citrate measurementOrd ered By: Andrei Holt on 06-08-2024 Urine Citric Acid 4 mg/L Undefined [facility] Urine citrate measurement 4 mg/L Undefined [facility] Urine potassium measurement (moles/volume)Ordered By: Andrei Holt on 06-08-2024 Potassium (U) [Moles/Vol] 26.0 mmol/L Not Establ. [facility] Urine sodium measurement (mo les/volume)Ordered By: Andrei Holt on 06-08-2024 Sodium (U) [Moles/Vol] 46 mmol/L Not Establ. [facility] Urine uric acid measurement (mass/volume)Ordered By: Andrei Holt on 06-08-2024 Urate (U) [Mass/Vol] 28.9 mg/dL Not Estab. [facility] C. difficile DNA EL+probe Q l (Unsp spec)Ordered By: Ceci Martinez on 06-05-2024 Clostridioides difficile (PCR) [facility] CDIFF (PCR)on 06-05-2024 CDIFF Pending [phone] NAP1-B1 Presumptive Negative *for epidemiolologic???use C. Diff PCR Negative- No toxigenic C. Diff Detected Normal [facility] Comment on above: Performed By: #### L 7000.0700, M100.6796 ####[facility] [address], [place], [id number] Calprotectin stoolOrdered By : Ceci Martinez on 06-05-2024 Calprotectin stool 11 ug/g 0-120 [facility] Comment on above: Concentration Interp retation Follow-Up< 5 - 50 ug/g Normal None>50 -120 ug/g Borderline Re-evaluate in 4-6 weeks >120 ug/g Abnormal Repeat as clinically indicatedPerformed at: [facility] [address] [id number] Director: Miguel Fay MD, Phone: [phone] Stool Calprotectin 11 ug/g 0-120 [facility] Comment on above: Concentration Interp retation Follow-Up< 5 - 50 ug/g Normal None>50 -120 ug/g Borderline Re-evaluate in 4-6 weeks >120 ug/g Abnormal Repeat as clinically indicatedPerformed at: [facility] [address] [place], [place] [id number] Director: Miguel Fay MD, Phone: [phone] Calprotectin stool 11 ug/g 0-120 [facility] Clostridium difficile detect ion by polymerase chain reactionOrdered By: Ceci Martinez on 06-05-2024 C. difficile DNA EL+probe Ql (Unsp spec) [facility] Hepatitis B Core Ab Totalon 05-31-2024 HEP B CORE,TOT Negative Normal Negative [facility] Comment on above: Result Comment: Perf ormed at: [facility] [address] [id number] Director: El Case PhD, Phone: [phone] Performed By: #### L 100.0100, L500.4050, L3100.0460, L501.6710 ####[facility] [address] [place], [place], [address] ALP [Catalytic activity/Vol] Ordered By: ED PROVIDER on 05-30-2024 Serum or plasma alkaline phosphatase measurement 80 U/L 35-104 [facility] ALT [Catalytic activity/Vol] Ordered By: ED PROVIDER on 05-30-2024 Serum or plasma alanine aminotransferase (ALT) measurement 27 U/L <35 [facility] Abdomen/Pelvis without Conto n 05-30-2024 Abdomen/Pelvis without Cont Normal [facility] Absolute lymphocyte countOrd ered By: ED PROVIDER on 05-30-2024 Lymphocytes Auto (Unsp spec) [#/Vol] 3.96 10*3/uL 0.83-4.51 [facility] Absolute neutrophil countOrd ered By: ED PROVIDER on 05-30-2024 Neutrophils (Bld) [#/Vol] 4.5 10*3/uL 2.0-7.7 [facility] Absolute neutrophil count 4.5 X10^3/uL 2.0-7.7 [facility] Albumin [Mass/Vol]Ordered By : ED PROVIDER on 05-30-2024 Serum or plasma albumin measurement (mass/volume) 4.5 g/dL 3.5-5.0 [facility] Albumin/Globulin [Mass ratio ]Ordered By: ED PROVIDER on 05-30-2024 Serum or plasma albumin/globulin mass ratio 1.3 RATIO 0.9-2.4 [facility] Anion gap [Moles/Vol]Ordered By: ED PROVIDER on 05-30-2024 Anion gap in Serum or Plasma 12 5- [facility] Anion gap in Serum or Plasma Ordered By: ED PROVIDER on 05-30-2024 Anion gap [Moles/Vol] 12 mmol/L 5- [facility] Automated lymphocyte count a s percentage of total leukocytesOrdered By: ED PROVIDER on 05-30-2024 Lymphocytes/100 WBC Auto (Unsp spec) 43.8 % High 19-41 [facility] BUN/creatinine ratioOrdered By: ED PROVIDER on 05-30-2024 Urea nitrogen/Creatinine [Mass ratio] 13.8 mg/mg 10- [facility] BUN/creatinine ratio 13.8 RATIO 01-15 [facility] Bacteria LM.HPF (Urine sed) [#/Area]Ordered By: ED PROVIDER on 05-30-2024 Urine sediment bacteria count by microscopy (number/high power field) 2+ /hpf None Seen [facility] Basophil percentageOrdered B y: ED PROVIDER on 05-30-2024 Basophils/100 WBC (Bld) 0.6 % 0-1 [facility] Basophil percentage 0.6 % 0-1 [facility] Bilirubin Test strip Ql (U)O rdered By: ED PROVIDER on 05-30-2024 Bilirubin Ql (U) Negative Negative [facility] Bilirubin, totalOrdered By: ED PROVIDER on 05-30-2024 Bilirubin [Mass/Vol] 0.29 mg/dL 0.00-1.30 [facility] Bilirubin, total 0.29 mg/dL 0.00-1.30 [facility] CBC W/Diff, Automatedon Absolute Lymph 3.96 X10 3/uL Normal 0.83-4.51 [facility] Comment on above: Performed By: #### L 500.4050, L100.0100 ####[facility] [address] [place], [address] Absolute Neut 4.5 X10 3/uL Normal 2.0-7.7 [facility] Comment on above: Performed By: #### L 500.4050, L100.0100 ####[facility] [address] [place], [address] Basophils/100 WBC (Bld) 0.6 % Normal 0-1 [facility] Comment on above: Performed By: #### L 500.4050, L100.0100 ####[facility] [address] [place], [address] Eosinophils/100 WBC (Bld) 2.0 % Normal 0-5 [facility] Comment on above: Performed By: #### L 500.4050, L100.0100 ####[facility] [address] [place], [address] Erythrocyte distribution width (RBC) [Ratio] 12.9 % Normal 11.6-14.6 [facility] Comment on above: Performed By: #### L 500.4050, L100.0100 ####[facility] [address] [place], [address] Hematocrit (Bld) [Volume fraction] 39.6 % Normal 37-47 [facility] Comment on above: Performed By: #### L 500.4050, L100.0100 ####[facility] [address] [place], [address] Hemoglobin (Bld) [Mass/Vol] 13.2 g/dL Normal 12.0-15.0 [facility] Comment on above: Performed By: #### L 500.4050, L100.0100 ####[facility] [address] [place], [address] IG% 0.100 Normal 0.0-0.9 [facility] Comment on above: Result Comment: IG% - Immature Granulocytes (promyelocytes, myelocytes andmetamyelocytes) > 1% indicates that a LEFT SHIFT is Present. Performed By: #### L 500.4050, L100.0100 ####[facility] [address] [place], [address] Lymphocytes/100 WBC (Bld) 43.8 % High 19-41 [facility] Comment on above: Performed By: #### L 500.4050, L100.0100 ####[facility] [address] [place], [address] MCH (RBC) [Entitic mass] 28.3 pg Normal 27.0-32.0 [facility] Comment on above: Performed By: #### L 500.4050, L100.0100 ####[facility] [address] [place], [address] MCHC (RBC) [Mass/Vol] 33.3 g/dL Normal 32-36 [facility] Comment on above: Performed By: #### L 500.4050, L100.0100 ####[facility] [address] [place], [address] MCV (RBC) [Entitic vol] 85.0 fL Normal 81-99 [facility] Comment on above: Performed By: #### L 500.4050, L100.0100 ####[facility] [address] [place], [address] Monocytes/100 WBC (Bld) 4.4 % Normal 0-10 [facility] Comment on above: Performed By: #### L 500.4050, L100.0100 ####[facility] [address] [place], [address] Neutrophils/100 WBC (Bld) 49.1 % Normal 47-70 [facility] Comment on above: Performed By: #### L 500.4050, L100.0100 ####[facility] [address] [place], [address] Nucleated RBC (Bld) [#/Vol] 0 10*3/uL Normal 0-5 [facility] Comment on above: Performed By: #### L 500.4050, L100.0100 ####[facility] [address] [place], [address] Platelet mean volume (Bld) [Entitic vol] 9.0 fL Normal 6.2-12.0 [facility] Comment on above: Performed By: #### L 500.4050, L100.0100 ####[facility] [address] [place], [address] Platelets (Bld) [#/Vol] 313 10*3/uL Normal 150-450 [facility] Comment on above: Performed By: #### L 500.4050, L100.0100 ####[facility] [address] [place], [address] RBC (Bld) [#/Vol] 4.66 10*6/uL Normal 4.2-5.4 [facility] Comment on above: Performed By: #### L 500.4050, L100.0100 ####[facility] [address] [place], [address] RDW SD 39.8 fl Normal 35.1-43.9 [facility] Comment on above: Performed By: #### L 500.4050, L100.0100 ####[facility] [address] [place], [address] WBC (Bld) [#/Vol] 9.1 10*3/uL Normal 4.4-11.0 [facility] Comment on above: Performed By: #### L 500.4050, L100.0100 ####[facility] [address] [place], [address] Calcium [Mass/Vol]Ordered By : ED PROVIDER on 05-30-2024 Serum or plasma calcium measurement (mass/volume) 9.6 mg/dL 7.6-11.0 [facility] Carbon dioxide, total [Moles /volume] in Central venous bloodOrdered By: ED PROVIDER on 05-30-2024 CO2 [Moles/Vol] 25.1 mmol/L 21.0-32.0 [facility] Carbon dioxide, total [Moles/volume] in Central venous blood 25.1 mmol/L 21.0-32.0 [facility] Chloride assayOrdered By: ED PROVIDER on 05-30-2024 Chloride [Moles/Vol] 101 mmol/L 98-108 [facility] Chloride assay 101 mmol/L 98-108 [facility] Clarity (U)Ordered By: ED W[place] OVIDER on 05-30-2024 Urine clarity Clear Clear [facility] Color (U)Ordered By: ED PROV IDER on 05-30-2024 Urine color determination Yellow Yellow [facility] Comprehensive Metabolic Prof ilon 05-30-2024 Albumin [Mass/Vol] 4.5 g/dL Normal 3.5-5.0 [facility] Comment on above: Performed By: #### L 500.4050, L100.0100 ####[facility] [address] [place], [address] Albumin/Globulin [Mass ratio] 1.3 {ratio} Normal 0.9-2.4 [facility] Comment on above: Performed By: #### L 500.4050, L100.0100 ####[facility] [address] [place], [address] ALK PHOS 80 U/L Normal 35-104 [facility] Comment on above: Performed By: #### L 500.4050, L100.0100 ####[facility] [address] [place], [address] ALT [Catalytic activity/Vol] 27 U/L Normal <=34 [facility] Comment on above: Performed By: #### L 500.4050, L100.0100 ####[facility] [address] [place], [address] AST [Catalytic activity/Vol] 24 U/L Normal <=31 [facility] Comment on above: Performed By: #### L 500.4050, L100.0100 ####[facility] [address] [place], [address] Bilirubin [Mass/Vol] 0.29 mg/dL Normal 0.00-1.30 [facility] Comment on above: Performed By: #### L 500.4050, L100.0100 ####[facility] [address] [place], [address] BUN/CRE 13.8 RATIO Normal 10-20 [facility] Comment on above: Performed By: #### L 500.4050, L100.0100 ####[facility] [address] [place], [address] Calcium [Mass/Vol] 9.6 mg/dL Normal 7.6-11.0 [facility] Comment on above: Performed By: #### L 500.4050, L100.0100 ####[facility] [address] [place], [address] Chloride [Moles/Vol] 101 mmol/L Normal 98-108 [facility] Comment on above: Performed By: #### L 500.4050, L100.0100 ####[facility] [address] [place], [address] CO2 [Moles/Vol] 25.1 mmol/L Normal 21.0-32.0 [facility] Comment on above: Performed By: #### L 500.4050, L100.0100 ####[facility] [address] [place], [address] Creatinine [Mass/Vol] 0.73 mg/dL Normal 0.70-1.20 [facility] Comment on above: Performed By: #### L 500.4050, L100.0100 ####[facility] [address] [place], [address] ECRCL 106.15 ml/min Normal 50-250 [facility] Comment on above: Performed By: #### L 500.4050, L100.0100 ####[facility] [address] [place], [address] GAP 12 Normal 5-15 [facility] Comment on above: Performed By: #### L 500.4050, L100.0100 ####[facility] [address] [place], [address] GFR/1.73 sq M.predicted among non-blacks MDRD (S/P/Bld) [Vol rate/Area] 106 mL/min/{1.73_m2} Normal >60 [facility] Comment on above: Result Comment: mL/m in/1.73m2 CKD-EPI Creatinine Equation (2020) Performed By: #### L 500.4050, L100.0100 ####[facility] [address] [place], [address] Globulin (S) [Mass/Vol] 3.5 g/dL Normal 2.2-4.2 [facility] Comment on above: Performed By: #### L 500.4050, L100.0100 ####[facility] [address] [place], [address] Glucose [Mass/Vol] 99 mg/dL Normal 70-99 [facility] Comment on above: Performed By: #### L 500.4050, L100.0100 ####[facility] [address] [place], [address] Potassium [Moles/Vol] 3.8 mmol/L Normal 3.3-5.1 [facility] Comment on above: Performed By: #### L 500.4050, L100.0100 ####[facility] [address] [place], [address] Sodium [Moles/Vol] 139 mmol/L Normal 133-145 [facility] Comment on above: Performed By: #### L 500.4050, L100.0100 ####[facility] [address] [place], [address] T PROT 8.0 g/dL Normal 5.9-8.4 [facility] Comment on above: Performed By: #### L 500.4050, L100.0100 ####[facility] [address] [place], [address] Urea nitrogen [Mass/Vol] 10 mg/dL Normal 4-19 [facility] Comment on above: Performed By: #### L 500.4050, L100.0100 ####[facility] [address] [place], [address] Calcium [Mass/Vol] 9.8 mg/dL Normal 7.6-11.0 [facility] Comment on above: Performed By: #### L 100.0100, L500.4050, L3100.0460, L501.6710 ####[facility] [address] [place], [address] Chloride [Moles/Vol] 103 mmol/L Normal 98-108 [facility] Comment on above: Performed By: #### L 100.0100, L500.4050, L3100.0460, L501.6710 ####[facility] [address] [place], [address] CO2 [Moles/Vol] 21.4 mmol/L Normal 21.0-32.0 [facility] Comment on above: Performed By: #### L 100.0100, L500.4050, L3100.0460, L501.6710 ####[facility] [address] [place], [address] GAP 17 High 5-15 [facility] Comment on above: Performed By: #### L 100.0100, L500.4050, L3100.0460, L501.6710 ####[facility] [address] [place], [address] Potassium [Moles/Vol] 3.8 mmol/L Normal 3.3-5.1 [facility] Comment on above: Performed By: #### L 100.0100, L500.4050, L3100.0460, L501.6710 ####[facility] [address] [place], [address] Sodium [Moles/Vol] 141 mmol/L Normal 133-145 [facility] Comment on above: Performed By: #### L 100.0100, L500.4050, L3100.0460, L501.6710 ####[facility] [address] [place], [address] Creatinine [Mass/Vol]Ordered By: ED PROVIDER on 05-30-2024 Serum creatinine measurement (mass/volume) 0.73 mg/dL 0.70-1.20 [facility] Emergency Department Summary on 05-30-2024 Emergency Department Summary Normal [facility] Eosinophil percentageOrdered By: ED PROVIDER on 05-30-2024 Eosinophils/100 WBC (Bld) 2.0 % 0-5 [facility] Eosinophil percentage 2.0 % 0-5 [facility] Epithelial cells.squamous LM Ql (Urine sed)Ordered By: ED PROVIDER on 05-30-2024 Epithelial cells.squamous LM.HPF (Urine sed) [#/Area] 0 /[HPF] 5-10 [facility] Erythrocyte distribution wid th (RBC) [Ratio]Ordered By: ED PROVIDER on 05-30-2024 Erythrocyte distribution width ratio 12.9 % 11.6-14.6 [facility] Erythrocyte distribution width standard deviation 39.8 fl 35.1-43.9 [facility] Erythrocyte distribution wid th ratioOrdered By: ED PROVIDER on 05-30-2024 Erythrocyte distribution width (RBC) [Ratio] 12.9 % 11.6-14.6 [facility] Erythrocyte distribution wid th standard deviationOrdered By: ED PROVIDER on 05-30-2024 Erythrocyte distribution width (RBC) [Entitic vol] 39.8 fL 35.1-43.9 [facility] Erythrocyte distribution width (RBC) [Ratio] 39.8 fl 35.1-43.9 [facility] Estimation of creatinine celia aranceOrdered By: ED PROVIDER on 05-30-2024 Estimated Creatinine Clearance Calc 106.15 ml/min 50-250 [facility] Estimation of creatinine clearance 106.15 ml/min 50-250 [facility] GFR/1.73 sq M.predicted lillie g non-blacks MDRD (S/P/Bld) [Vol rate/Area]Ordered By: ED PROVIDER on 05-30-2024 Estimated GFR (MDRD) Non-Af Amer 106 >60 [facility] Comment on above: mL/min/1.73m2 CKD-EP I Creatinine Equation (2020) Glomerular filtration rate (GFR) estimation/1.73 sq m using serum, plasma, or whole b 106 >60 [facility] Glomerular filtration rate ( GFR) estimation/1.73 sq m using serum, plasma, or whole bOrdered By: ED PROVIDER on 05-30-2024 GFR/1.73 sq M.predicted among non-blacks MDRD (S/P/Bld) [Vol rate/Area] 106 mL/min/{1.73_m2} >60 [facility] Comment on above: mL/min/1.73m2 CKD-EP I Creatinine Equation (2020) Glucose Ql (U)Ordered By: ED PROVIDER on 05-30-2024 Urine Glucose (UA) Normal mg/dl Normal [facility] Glucose [Mass/Vol]Ordered By : ED PROVIDER on 05-30-2024 Serum glucose measurement (mass/volume) 99 mg/dL 70-99 [facility] Hematocrit Auto (Bld) [Volum e fraction]Ordered By: ED PROVIDER on 05-30-2024 Hematocrit (Bld) [Volume fraction] 39.6 % 37-47 [facility] Automated blood hematocrit (percentage) 39.6 % 37-47 [facility] Hemoglobin measurementOrdere d By: ED PROVIDER on 05-30-2024 Hemoglobin (Bld) [Mass/Vol] 13.2 g/dL 12.0-15.0 [facility] Hemoglobin measurement 13.2 g/dL 12.0-15.0 [facility] Immature granulocytes/100 WB C Auto (Bld)Ordered By: ED PROVIDER on 05-30-2024 Immature granulocytes/100 WBC (Bld) 0.100 % 0.0-0.9 [facility] Comment on above: IG% - Immature Granu locytes (promyelocytes, myelocytes and metamyelocytes) > 1% indicates that a LEFT SHIFT is Present. Automated immature granulocyte percentage 0.100 % 0.0-0.9 [facility] Ketones Test strip Ql (U)Ord ered By: ED PROVIDER on 05-30-2024 Ketones Ql (U) Negative Negative [facility] Laboratory - Chemistry and C hemistry - challengeOrdered By: ED PROVIDER on 05-30-2024 AST [Catalytic activity/Vol] 24 U/L <32 [facility] Lymphocytes Auto (Unsp spec) [#/Vol]Ordered By: ED PROVIDER on 05-30-2024 Lymphocytes (Bld) [#/Vol] 3.96 10*3/uL 0.83-4.51 [facility] Absolute lymphocyte count 3.96 X10^3/uL 0.83-4.51 [facility] Lymphocytes/100 WBC Auto (Un sp spec)Ordered By: ED PROVIDER on 05-30-2024 Lymphocytes/100 WBC (Bld) 43.8 % High 19-41 [facility] Automated lymphocyte count as percentage of total leukocytes 43.8 % High 19-41 [facility] MCV (RBC) [Entitic vol]Order ed By: ED PROVIDER on 05-30-2024 MCV (mean corpuscular volume) determination 85.0 fL 81-99 [facility] MCV (mean corpuscular volume ) determinationOrdered By: ED PROVIDER on 05-30-2024 MCV (RBC) [Entitic vol] 85.0 fL 81-99 [facility] Mean corpuscular hemoglobin (MCH) determinationOrdered By: ED PROVIDER on 05-30-2024 MCH (RBC) [Entitic mass] 28.3 pg 27.0-32.0 [facility] Mean corpuscular hemoglobin (MCH) determination 28.3 pg 27.0-32.0 [facility] Mean corpuscular hemoglobin concentration (MCHC) determinationOrdered By: ED PROVIDER on 05-30-2024 MCHC (RBC) [Mass/Vol] 33.3 g/dL 32-36 [facility] Mean corpuscular hemoglobin concentration (MCHC) determination 33.3 g/dL 32-36 [facility] Mean platelet volume determi nationOrdered By: ED PROVIDER on 05-30-2024 Platelet mean volume (Bld) [Entitic vol] 9.0 fL 6.2-12.0 [facility] Mean platelet volume determination 9.0 fl 6.2-12.0 [facility] Microscopic analysis of urin e for red blood cells (RBC)Ordered By: ED PROVIDER on 05-30-2024 Microscopic analysis of urine for red blood cells (RBC) 0-5 SEEN /hpf 0-5 [facility] Urine RBC 0-5 SEEN /hpf 0-5 [facility] Monocyte percentageOrdered B y: ED PROVIDER on 05-30-2024 Monocytes/100 WBC (Bld) 4.4 % 0-10 [facility] Monocyte percentage 4.4 % 0-10 [facility] Mucus LM Ql (Urine sed)Order ed By: ED PROVIDER on 05-30-2024 Mucus Ql (Urine sed) 0 SEEN /hpf [facility] Mucus detection in urine sediment by light microscopy 0 SEEN /hpf [facility] Neutrophil percentageOrdered By: ED PROVIDER on 05-30-2024 Neutrophils/100 WBC (Bld) 49.1 % 47-70 [facility] Neutrophil percentage 49.1 % 47-70 [facility] Nitrite Test strip Ql (U)Ord ered By: ED PROVIDER on 05-30-2024 Nitrite Ql (U) Negative Negative [facility] No Panel InformationOrdered By: ED PROVIDER on 05-30-2024 24 U/L <32 [facility] Nucleated red blood cell per centageOrdered By: ED PROVIDER on 05-30-2024 Nucleated RBC/100 WBC (Bld) [Ratio] 0 % 0-5 [facility] Nucleated red blood cell percentage 0 % 0-5 [facility] Platelet countOrdered By: ED PROVIDER on 05-30-2024 Platelets (Bld) [#/Vol] 313 10*3/uL 150-450 [facility] Platelet count 313 K/mm3 150-450 [facility] Potassium (Unsp spec) [Mass/ Vol]Ordered By: ED PROVIDER on 05-30-2024 Potassium [Moles/Vol] 3.8 mmol/L 3.3-5.1 [facility] Potassium measurement (mass/volume) 3.8 mmol/L 3.3-5.1 [facility] Potassium measurement (mass/ volume)Ordered By: ED PROVIDER on 05-30-2024 Potassium (Unsp spec) [Mass/Vol] 3.8 mmol/L 3.3-5.1 [facility] Protein Test strip Ql (U)Ord ered By: ED PROVIDER on 05-30-2024 Protein Ql (U) Negative Negative [facility] RBC Auto (Bld) [#/Vol]Ordere d By: ED PROVIDER on 05-30-2024 RBC (Bld) [#/Vol] 4.66 10*6/uL 4.2-5.4 [facility] Automated blood erythrocyte count 4.66 M/mm3 4.2-5.4 [facility] Serum creatinine measurement (mass/volume)Ordered By: ED PROVIDER on 05-30-2024 Creatinine [Mass/Vol] 0.73 mg/dL 0.70-1.20 [facility] Serum globulin measurementOr dered By: ED PROVIDER on 05-30-2024 Globulin (S) [Mass/Vol] 3.5 g/dL 2.2-4.2 [facility] Serum globulin measurement 3.5 g/dL 2.2-4.2 [facility] Serum glucose measurement (m ass/volume)Ordered By: ED PROVIDER on 05-30-2024 Glucose [Mass/Vol] 99 mg/dL 70-99 [facility] Serum or plasma alanine benavidez otransferase (ALT) measurementOrdered By: ED PROVIDER on 05-30-2024 ALT [Catalytic activity/Vol] 27 U/L <35 [facility] Serum or plasma albumin kaylan urement (mass/volume)Ordered By: ED PROVIDER on 05-30-2024 Albumin [Mass/Vol] 4.5 g/dL 3.5-5.0 [facility] Serum or plasma albumin/glob ulin mass ratioOrdered By: ED PROVIDER on 05-30-2024 Albumin/Globulin [Mass ratio] 1.3 {ratio} 0.9-2.4 [facility] Serum or plasma alkaline joseph sphatase measurementOrdered By: ED PROVIDER on 05-30-2024 ALP [Catalytic activity/Vol] 80 U/L 35-104 [facility] Serum or plasma calcium kaylan urement (mass/volume)Ordered By: ED PROVIDER on 05-30-2024 Calcium [Mass/Vol] 9.6 mg/dL 7.6-11.0 [facility] Serum or plasma urea nitroge n measurement (mass/volume)Ordered By: ED PROVIDER on 05-30-2024 Urea nitrogen [Mass/Vol] 10 mg/dL - [facility] Sodium levelOrdered By: ED P ROVIDER on 05-30-2024 Sodium [Moles/Vol] 139 mmol/L 133-145 [facility] Sodium level 139 mmol/L 133-145 [facility] Specific gravity (U) [Rel de nsity]Ordered By: ED PROVIDER on 05-30-2024 Urine specific gravity measurement 1.010 1.002-1.030 [facility] Squamous epithelial cells de tection in urine sediment by light microscopyOrdered By: ED PROVIDER on 05-30-2024 Epithelial cells.squamous LM Ql (Urine sed) 0-5 SEEN /hpf 5-10 [facility] Total proteinOrdered By: ED PROVIDER on 05-30-2024 Protein [Mass/Vol] 8.0 g/dL 5.9-8.4 [facility] Total protein 8.0 g/dL 5.9-8.4 [facility] Urea nitrogen [Mass/Vol]Orde red By: ED PROVIDER on 05-30-2024 Serum or plasma urea nitrogen measurement (mass/volume) 10 mg/dL 07-15 [facility] Urinalysis, Completeon 05-30 YEAST 1+ /hpf Normal None Seen [facility] Comment on above: Order Comment: CLEAN CATCH Performed By: #### L 400.0001 ####[facility] [address] [place], [place], [id number] BACTERIA 2+ /hpf Normal None Seen [facility] Comment on above: Order Comment: CLEAN CATCH Performed By: #### L 400.0001 ####[facility] [address] [place], [address] EPI,SQUAMOUS 0-5 SEEN Normal 5-10 [facility] Comment on above: Order Comment: CLEAN CATCH Performed By: #### L 400.0001 ####[facility] [address] [place], [address] RBC 0-5 SEEN Normal 0-5 [facility] Comment on above: Order Comment: CLEAN CATCH Performed By: #### L 400.0001 ####[facility] [address] [place], [address] WBC 0-5 SEEN Normal 0-5 [facility] Comment on above: Order Comment: CLEAN CATCH Performed By: #### L 400.0001 ####[facility] [address] [place], [address] Mucus Ql (Urine sed) 0 SEEN Normal [facility] Comment on above: Order Comment: CLEAN CATCH Performed By: #### L 400.0001 ####[facility] [address] [place], [place], [id number] Urine blood detectionOrdered By: ED PROVIDER on 05-30-2024 Urine Occult Blood 10 /ul High Negative [facility] Urine blood detection 10 /ul High Negative [facility] Urine clarityOrdered By: ED PROVIDER on 05-30-2024 Clarity (U) Clear Clear [facility] Urine color determinationOrd ered By: ED PROVIDER on 05-30-2024 Color (U) Yellow Yellow [facility] Urine glucose detectionOrder ed By: ED PROVIDER on 05-30-2024 Glucose Ql (U) Normal mg/dl Normal [facility] Urine glucose detection Normal mg/dl Normal [facility] Urine leukocyte esterase det ection by dipstickOrdered By: ED PROVIDER on 05-30-2024 Leukocyte esterase Test strip Ql (U) Negative Negative [facility] Urine pHOrdered By: ED PROVI BELL on 05-30-2024 pH (U) 6.0 [pH] 5.0 - 8.0 [facility] Urine sediment bacteria coun t by microscopy (number/high power field)Ordered By: ED PROVIDER on 05-30-2024 Bacteria LM.HPF (Urine sed) [#/Area] 2 /[HPF] None Seen [facility] Urine sediment yeast count b y microscopy (number/high powered field)Ordered By: ED PROVIDER on 05-30-2024 Yeast LM.HPF (Urine sed) [#/Area] 1 /[HPF] None Seen [facility] Urine specific gravity measu rementOrdered By: ED PROVIDER on 05-30-2024 Specific gravity (U) [Rel density] 1.010 1.002-1.030 [facility] Urine total bilirubin detect ion by test stripOrdered By: ED PROVIDER on 05-30-2024 Urine total bilirubin detection by test strip Negative Negative [facility] Urine urobilinogen measureme ntOrdered By: ED PROVIDER on 05-30-2024 Urobilinogen Ql (U) Normal mg/dl Normal [facility] Urobilinogen Ql (U)Ordered B y: ED PROVIDER on 05-30-2024 Urine Urobilinogen Normal mg/dl Normal [facility] White blood cell (WBC) count Ordered By: ED PROVIDER on 05-30-2024 WBC (Bld) [#/Vol] 9.1 10*3/uL 4.4-11.0 [facility] White blood cell (WBC) count 9.1 K/mm3 4.4-11.0 [facility] White blood cell countOrdere d By: ED PROVIDER on 05-30-2024 Urine WBC 0-5 SEEN /hpf 0-5 [facility] White blood cell count 0-5 SEEN /hpf 0-5 [facility] White blood cell count 0-5 SEEN /hpf 5-10 [facility] Yeast LM.HPF (Urine sed) [#/ Area]Ordered By: ED PROVIDER on 05-30-2024 Urine Yeast 1+ /hpf None Seen [facility] Urine sediment yeast count by microscopy (number/high powered field) 1+ /hpf None Seen [facility] pH (U)Ordered By: ED PROVIDE R on 05-30-2024 Urine pH 6.0 5.0 - 8.0 [facility] ALP [Catalytic activity/Vol] Ordered By: Ceci Martinez on 05-29-2024 Serum or plasma alkaline phosphatase measurement 71 U/L 35-104 [facility] ALT [Catalytic activity/Vol] Ordered By: Ceci Martinez on 05-29-2024 Serum or plasma alanine aminotransferase (ALT) measurement 26 U/L <35 [facility] Absolute lymphocyte countOrd ered By: Ceci Martinez on 05-29-2024 Lymphocytes Auto (Unsp spec) [#/Vol] 3.51 10*3/uL 0.83-4.51 [facility] Absolute neutrophil countOrd ered By: Ceci Martinez on 05-29-2024 Neutrophils (Bld) [#/Vol] 4.8 10*3/uL 2.0-7.7 [facility] Absolute neutrophil count 4.8 X10^3/uL 2.0-7.7 [facility] Albumin [Mass/Vol]Ordered By : Ceci Martinez on 05-29-2024 Serum or plasma albumin measurement (mass/volume) 4.2 g/dL 3.5-5.0 [facility] Albumin/Globulin [Mass ratio ]Ordered By: Ceci Martinez on 05-29-2024 Serum or plasma albumin/globulin mass ratio 1.3 RATIO 0.9-2.4 [facility] Anion gap [Moles/Vol]Ordered By: Ceci Martinez on 05-29-2024 Anion gap in Serum or Plasma 17 High 5-15 [facility] Anion gap in Serum or Plasma Ordered By: Ceci Martinez on 05-29-2024 Anion gap [Moles/Vol] 17 mmol/L High 5-15 [facility] Automated lymphocyte count a s percentage of total leukocytesOrdered By: Ceci Martinez on 05-29-2024 Lymphocytes/100 WBC Auto (Unsp spec) 38.5 % 19-41 [facility] BUN/creatinine ratioOrdered By: Ceci Martinez on 05-29-2024 Urea nitrogen/Creatinine [Mass ratio] 13.4 mg/mg 10-20 [facility] BUN/creatinine ratio 13.4 RATIO 10-20 [facility] Basophil percentageOrdered B y: Ceci Martinez on 05-29-2024 Basophils/100 WBC (Bld) 0.4 % 0-1 [facility] Basophil percentage 0.4 % 0-1 [facility] Bilirubin, totalOrdered By: Ceci Martinez on 05-29-2024 Bilirubin [Mass/Vol] mg/dL 0.00-1.30 [facility] Bilirubin, total < 0.15 mg/dL 0.00-1.30 [facility] CBC W/Diff, Automatedon Absolute Lymph 3.51 X10 3/uL Normal 0.83-4.51 [facility] Comment on above: Performed By: #### L 100.0100, L500.4050, L3100.0460, L501.6710 ####[facility] [address] [place], [address] Absolute Neut 4.8 X10 3/uL Normal 2.0-7.7 [facility] Comment on above: Performed By: #### L 100.0100, L500.4050, L3100.0460, L501.6710 ####[facility] [address] [place], [address] Basophils/100 WBC (Bld) 0.4 % Normal 0-1 [facility] Comment on above: Performed By: #### L 100.0100, L500.4050, L3100.0460, L501.6710 ####[facility] [address] [place], [address] Eosinophils/100 WBC (Bld) 1.5 % Normal 0-5 [facility] Comment on above: Performed By: #### L 100.0100, L500.4050, L3100.0460, L501.6710 ####[facility] [address] [place], [address] Erythrocyte distribution width (RBC) [Ratio] 12.9 % Normal 11.6-14.6 [facility] Comment on above: Performed By: #### L 100.0100, L500.4050, L3100.0460, L501.6710 ####[facility] [address] [place], [address] Hematocrit (Bld) [Volume fraction] 39.0 % Normal 37-47 [facility] Comment on above: Performed By: #### L 100.0100, L500.4050, L3100.0460, L501.6710 ####[facility] [address] [place], [address] Hemoglobin (Bld) [Mass/Vol] 12.7 g/dL Normal 12.0-15.0 [facility] Comment on above: Performed By: #### L 100.0100, L500.4050, L3100.0460, L501.6710 ####[facility] [address] [place], [address] IG% 0.300 Normal 0.0-0.9 [facility] Comment on above: Result Comment: IG% - Immature Granulocytes (promyelocytes, myelocytes andmetamyelocytes) > 1% indicates that a LEFT SHIFT is Present. Performed By: #### L 100.0100, L500.4050, L3100.0460, L501.6710 ####[facility] [address] [place], [address] Lymphocytes/100 WBC (Bld) 38.5 % Normal 19-41 [facility] Comment on above: Performed By: #### L 100.0100, L500.4050, L3100.0460, L501.6710 ####[facility] [address] [place], [address] MCH (RBC) [Entitic mass] 28.0 pg Normal 27.0-32.0 [facility] Comment on above: Performed By: #### L 100.0100, L500.4050, L3100.0460, L501.6710 ####[facility] [address] [place], [address] MCHC (RBC) [Mass/Vol] 32.6 g/dL Normal 32-36 [facility] Comment on above: Performed By: #### L 100.0100, L500.4050, L3100.0460, L501.6710 ####[facility] [address] [place], [address] MCV (RBC) [Entitic vol] 86.1 fL Normal 81-99 [facility] Comment on above: Performed By: #### L 100.0100, L500.4050, L3100.0460, [id number] ####[facility] [address] [place], [address] Monocytes/100 WBC (Bld) 6.3 % Normal 0-10 [facility] Comment on above: Performed By: #### L 100.0100, L500.4050, L3100.0460, [id number] ####[facility] [address] [place], [address] Neutrophils/100 WBC (Bld) 53.0 % Normal 47-70 [facility] Comment on above: Performed By: #### L 100.0100, L500.4050, L3100.0460, [id number] ####[facility] [address] [place], [address] Nucleated RBC (Bld) [#/Vol] 0 10*3/uL Normal 0-5 [facility] Comment on above: Performed By: #### L 100.0100, L500.4050, L3100.0460, L501.6710 ####[facility] [address] [place], [address] Platelet mean volume (Bld) [Entitic vol] 9.2 fL Normal 6.2-12.0 [facility] Comment on above: Performed By: #### L 100.0100, L500.4050, L3100.0460, [id number] ####[facility] [address] [place], [address] Platelets (Bld) [#/Vol] 312 10*3/uL Normal 150-450 [facility] Comment on above: Performed By: #### L 100.0100, L500.4050, L3100.0460, [id number] ####[facility] [address] [place], [address] RBC (Bld) [#/Vol] 4.53 10*6/uL Normal 4.2-5.4 [facility] Comment on above: Performed By: #### L 100.0100, L500.4050, L3100.0460, [id number] ####[facility] [address] [place], [address] RDW SD 40.3 fl Normal 35.1-43.9 [facility] Comment on above: Performed By: #### L 100.0100, L500.4050, L3100.0460, [id number] ####[facility] [address] [place], [address] WBC (Bld) [#/Vol] 9.1 10*3/uL Normal 4.4-11.0 [facility] Comment on above: Performed By: #### L 100.0100, L500.4050, L3100.0460, L501.6710 ####[facility] [address] [place], [address] CRPon 05-29-2024 C-REACTIVE PROT 4.04 mg/L High 0.0-3.0 [facility] Comment on above: Performed By: #### L 100.0100, L500.4050, L3100.0460, L501.6710 ####[facility] [address] [place], [address] CRP [Mass/Vol]Ordered By: Jose R Martinez on 05-29-2024 C-Reactive Protein Extended Range 4.04 mg/L High 0.0-3.0 [facility] Serum or plasma C reactive protein measurement (mass/volume) 4.04 mg/L High 0.0-3.0 [facility] Calcium [Mass/Vol]Ordered By : Ceci Martinez on 05-29-2024 Serum or plasma calcium measurement (mass/volume) 9.8 mg/dL 7.6-11.0 [facility] Carbon dioxide, total [Moles /volume] in Central venous bloodOrdered By: Ceci Martinez on 05-29-2024 CO2 [Moles/Vol] 21.4 mmol/L 21.0-32.0 [facility] Carbon dioxide, total [Moles/volume] in Central venous blood 21.4 mmol/L 21.0-32.0 [facility] Chloride assayOrdered By: Jose R Martinez on 05-29-2024 Chloride [Moles/Vol] 103 mmol/L 98-108 [facility] Chloride assay 103 mmol/L 98-108 [facility] Creatinine [Mass/Vol]Ordered By: Ceci Martinez on 05-29-2024 Serum creatinine measurement (mass/volume) 0.75 mg/dL 0.70-1.20 [facility] Eosinophil percentageOrdered By: Ceci Martinez on 05-29-2024 Eosinophils/100 WBC (Bld) 1.5 % 0-5 [facility] Eosinophil percentage 1.5 % 0-5 [facility] Erythrocyte distribution wid th (RBC) [Ratio]Ordered By: Ceci Martinez on 05-29-2024 Erythrocyte distribution width ratio 12.9 % 11.6-14.6 [facility] Erythrocyte distribution width standard deviation 40.3 fl 35.1-43.9 [facility] Erythrocyte distribution wid th ratioOrdered By: Ceci Martinez on 05-29-2024 Erythrocyte distribution width (RBC) [Ratio] 12.9 % 11.6-14.6 [facility] Erythrocyte distribution wid th standard deviationOrdered By: Ceci Martinez on 05-29-2024 Erythrocyte distribution width (RBC) [Entitic vol] 40.3 fL 35.1-43.9 [facility] Erythrocyte distribution width (RBC) [Ratio] 40.3 fl 35.1-43.9 [facility] GFR/1.73 sq M.predicted lillie g non-blacks MDRD (S/P/Bld) [Vol rate/Area]Ordered By: Ceci Martinez on 05-29-2024 Estimated GFR (MDRD) Non-Af Amer 102 >60 [facility] Comment on above: mL/min/1.73m2 CKD-EP I Creatinine Equation (2020) Glomerular filtration rate (GFR) estimation/1.73 sq m using serum, plasma, or whole b 102 >60 [facility] Gastroenterology Visit Repor ton 05-29-2024 Gastroenterology Visit Report Normal [facility] Glomerular filtration rate ( GFR) estimation/1.73 sq m using serum, plasma, or whole bOrdered By: Ceci Martinez on 05-29-2024 GFR/1.73 sq M.predicted among non-blacks MDRD (S/P/Bld) [Vol rate/Area] 102 mL/min/{1.73_m2} >60 [facility] Comment on above: mL/min/1.73m2 CKD-EP I Creatinine Equation (2020) Glucose [Mass/Vol]Ordered By : Ceci Martinez on 05-29-2024 Serum glucose measurement (mass/volume) 98 mg/dL 70-99 [facility] HBV core Ab Ql (S)Ordered By : Ceci Martinez on 05-29-2024 Hepatitis B Core Total Antibody Negative Negative [facility] Comment on above: Performed at: [address] Director: El Case PhD, Phone: [phone] Serum hepatitis B virus core antibody detection Negative Negative [facility] Hematocrit Auto (Bld) [Volum e fraction]Ordered By: Ceci Martinez on 05-29-2024 Hematocrit (Bld) [Volume fraction] 39.0 % 37-47 [facility] Automated blood hematocrit (percentage) 39.0 % 37-47 [facility] Hemoglobin measurementOrdere d By: Ceci Martinez on 05-29-2024 Hemoglobin (Bld) [Mass/Vol] 12.7 g/dL 12.0-15.0 [facility] Hemoglobin measurement 12.7 g/dL 12.0-15.0 [facility] Immature granulocytes/100 WB C Auto (Bld)Ordered By: Ccei Martinez on 05-29-2024 Immature granulocytes/100 WBC (Bld) 0.300 % 0.0-0.9 [facility] Comment on above: IG% - Immature Granu locytes (promyelocytes, myelocytes and metamyelocytes) > 1% indicates that a LEFT SHIFT is Present. Automated immature granulocyte percentage 0.300 % 0.0-0.9 [facility] Laboratory - Chemistry and C hemistry - challengeOrdered By: Ceci Martinez on 05-29-2024 AST [Catalytic activity/Vol] 24 U/L <32 [facility] Lymphocytes Auto (Unsp spec) [#/Vol]Ordered By: Ceci Martinez on 05-29-2024 Lymphocytes (Bld) [#/Vol] 3.51 10*3/uL 0.83-4.51 [facility] Absolute lymphocyte count 3.51 X10^3/uL 0.83-4.51 [facility] Lymphocytes/100 WBC Auto (Un sp spec)Ordered By: Ceci Martinez on 05-29-2024 Lymphocytes/100 WBC (Bld) 38.5 % 19- [facility] Automated lymphocyte count as percentage of total leukocytes 38.5 % 19-41 [facility] MCV (RBC) [Entitic vol]Order ed By: Ceci Martinez on 05-29-2024 MCV (mean corpuscular volume) determination 86.1 fL 81-99 [facility] MCV (mean corpuscular volume ) determinationOrdered By: Ceci Martinez on 05-29-2024 MCV (RBC) [Entitic vol] 86.1 fL 81-99 [facility] Mean corpuscular hemoglobin (MCH) determinationOrdered By: Ceci Martinez on 05-29-2024 MCH (RBC) [Entitic mass] 28.0 pg 27.0-32.0 [facility] Mean corpuscular hemoglobin (MCH) determination 28.0 pg 27.0-32.0 [facility] Mean corpuscular hemoglobin concentration (MCHC) determinationOrdered By: Ceci Martinez on 05-29-2024 MCHC (RBC) [Mass/Vol] 32.6 g/dL 32-36 [facility] Mean corpuscular hemoglobin concentration (MCHC) determination 32.6 g/dL 32-36 [facility] Mean platelet volume determi nationOrdered By: Ceci Martinez on 05-29-2024 Platelet mean volume (Bld) [Entitic vol] 9.2 fL 6.2-12.0 [facility] Mean platelet volume determination 9.2 fl 6.2-12.0 [facility] Monocyte percentageOrdered B y: Ceci Martinez on 05-29-2024 Monocytes/100 WBC (Bld) 6.3 % 0-10 [facility] Monocyte percentage 6.3 % 0-10 [facility] Neutrophil percentageOrdered By: Ceci Martinez on 05-29-2024 Neutrophils/100 WBC (Bld) 53.0 % 47-70 [facility] Neutrophil percentage 53.0 % 47-70 [facility] No Panel InformationOrdered By: Ceci Martinez on 05-29-2024 24 U/L <32 [facility] Nucleated red blood cell per centageOrdered By: Ceci Martinez on 05-29-2024 Nucleated RBC/100 WBC (Bld) [Ratio] 0 % 0-5 [facility] Nucleated red blood cell percentage 0 % 0-5 [facility] Platelet countOrdered By: Jose R Martinez on 05-29-2024 Platelets (Bld) [#/Vol] 312 10*3/uL 150-450 [facility] Platelet count 312 K/mm3 150-450 [facility] Potassium (Unsp spec) [Mass/ Vol]Ordered By: Ceci Martinez on 05-29-2024 Potassium [Moles/Vol] 3.8 mmol/L 3.3-5.1 [facility] Potassium measurement (mass/volume) 3.8 mmol/L 3.3-5.1 [facility] Potassium measurement (mass/ volume)Ordered By: Ceci Martinez on 05-29-2024 Potassium (Unsp spec) [Mass/Vol] 3.8 mmol/L 3.3-5.1 [facility] RBC Auto (Bld) [#/Vol]Ordere d By: Ceci Martinez on 05-29-2024 RBC (Bld) [#/Vol] 4.53 10*6/uL 4.2-5.4 [facility] Automated blood erythrocyte count 4.53 M/mm3 4.2-5.4 [facility] Serum creatinine measurement (mass/volume)Ordered By: Ceci Martinez on 05-29-2024 Creatinine [Mass/Vol] 0.75 mg/dL 0.70-1.20 [facility] Serum globulin measurementOr dered By: Ceci Martinez on 05-29-2024 Globulin (S) [Mass/Vol] 3.2 g/dL 2.2-4.2 [facility] Serum globulin measurement 3.2 g/dL 2.2-4.2 [facility] Serum glucose measurement (m ass/volume)Ordered By: Ceci Martinez on 05-29-2024 Glucose [Mass/Vol] 98 mg/dL 70-99 [facility] Serum hepatitis B virus core antibody detectionOrdered By: Ceci Martinez on 05-29-2024 HBV core Ab Ql (S) Negative Negative [facility] Comment on above: Performed at: [facility] [address] [id number] Director: El Case PhD, Phone: [phone] Serum or plasma C reactive p rotein measurement (mass/volume)Ordered By: Ceci Martinez on 05-29-2024 CRP [Mass/Vol] 4.04 mg/L High 0.0-3.0 [facility] Serum or plasma alanine benavidez otransferase (ALT) measurementOrdered By: Ceci Martinez on 05-29-2024 ALT [Catalytic activity/Vol] 26 U/L <35 [facility] Serum or plasma albumin kaylan urement (mass/volume)Ordered By: Ceci Martinez on 05-29-2024 Albumin [Mass/Vol] 4.2 g/dL 3.5-5.0 [facility] Serum or plasma albumin/glob ulin mass ratioOrdered By: Ceci Martinez on 05-29-2024 Albumin/Globulin [Mass ratio] 1.3 {ratio} 0.9-2.4 [facility] Serum or plasma alkaline joseph sphatase measurementOrdered By: Ceci Martinez on 05-29-2024 ALP [Catalytic activity/Vol] 71 U/L 35-104 [facility] Serum or plasma calcium kaylan urement (mass/volume)Ordered By: Ceci Martinez on 05-29-2024 Calcium [Mass/Vol] 9.8 mg/dL 7.6-11.0 [facility] Serum or plasma urea nitroge n measurement (mass/volume)Ordered By: Ceci Martinez on 05-29-2024 Urea nitrogen [Mass/Vol] 10 mg/dL - [facility] Sodium levelOrdered By: Daisy Martinez on 05-29-2024 Sodium [Moles/Vol] 141 mmol/L 133-145 [facility] Sodium level 141 mmol/L 133-145 [facility] Total proteinOrdered By: Hermelinda Martinez on 05-29-2024 Protein [Mass/Vol] 7.4 g/dL 5.9-8.4 [facility] Total protein 7.4 g/dL 5.9-8.4 [facility] Urea nitrogen [Mass/Vol]Orde red By: Ceci Martinez on 05-29-2024 Serum or plasma urea nitrogen measurement (mass/volume) 10 mg/dL 07-15 [facility] White blood cell (WBC) count Ordered By: Ceci Martinez on 05-29-2024 WBC (Bld) [#/Vol] 9.1 10*3/uL 4.4-11.0 [facility] White blood cell (WBC) count 9.1 K/mm3 4.4-11.0 [facility] Urine Cultureon 04-30-2024 [facility] Mixed Gram Positive Organisms [place] Count 25,000-50,000 [facility] Mixed contaminants. Submit a new specimen if indicated. Normal [facility] Comment on above: Performed By: #### M 100.2200, L400.2010 ####[facility] [address] [place], [address] [id number] 04-28-2024 [facility] Misc. COMMENT Normal . [facility] Comment on above: Order Comment: [id number] 0ADALIMUMAB TIGERTRANSFERFZ Result Comment: Test Ordered: [id number] Adalimumab Drug + AntibodyAdalimumab Drug Level 8.6 ug/mL ES Reference Range: .Quantitation Limit: <0.6 ug/mLResults of 0.6 or higher indicate detection of adalimumab.Comments: - The optimal drug concentration depends upon patient- specific factors including the disease and desired therapeutic endpoint. - Maintenance trough concentrations >=7.5 may correspond to higher remission rates.(1) - Mucosal healing may be more likely in patients with maintenance trough levels >8.14.(2) - In rheumatoid arthritis, trough levels of 5-8 are associated with clinical (EULAR) response.(3) - This assay measures the antibody-unbound (free) fraction of adalimumab when serum anti-adalimumab antibodies are present.Anti-Adalimumab Antibody <25 ng/mL ES Reference Range: . Interpretation: The above result is an UNDETECTED Antibody titer Quantitation Limit: <25 ng/mL. Results of 25 or higher indicate detection of anti- adalimumab antibodies. 25 - 100 ng/mL: LOW titer 101 - 300 ng/mL: INTERMEDIATE titer 301 or greater ng/mL: HIGH titerComments: - Anti-drug antibody levels should be interpreted in the context of the concomitant free drug trough concentration. - Low anti-drug antibodies may be transient while high titers are likely to be more consequential.(4-6) - Some immunogenicity is reversible. Elimination of intermediate titer (and even some high titer) anti-adalimumab antibodies has been achieved with dose escalation and/or methotrexate or 6-MP.(7) - This anti-adalimumab antibody assay is drug tolerant, and all positive results are verified for anti-drug specificity by a confirmatory test.References:1. Deniz N, et al. AGA Review on TDM in IBD. Gastroenterol 2017;153:835-857.2. Delma E, et al. J Crohns Col 2016;10(5):510-515.3. Pouw MF, et al. [facility] Rheum Dis 2015;74:513-518.4. Sathya GM, et al. ADRIAN 2011;305(14):1447-5370.5. Johnny C, et al. J Clin Gastroenterol 2016; 50:482-489.6. Hazel H, et al. Clin Gastroenterol Hepatol 2015; 13(3):522-530.7. Jai Herrera et al. Gastroenterol 2019;156(6):T-687.These tests were developed and their performancecharacteristics determined by [employer]. They have not beencleared or approved by the Food and Drug Administration.However, these electrochemiluminescence immunoassay (ECLIA)measurements of adalimumab and anti-adalimumab antibody(constituting DoseASSURE ADL) have been developed andvalidated in accordance with CLIA (Clinical LaboratoryImprovement Amendments) and the FDA Guidance document, AssayDevelopment and Validation for Immunogenicity Testing ofTherapeutic Protein Products (2019).Performed at: [facility] [address] [place], [place] [id number] Director: Magdi Brock MD, Phone: [phone] at: [facility] [id number] [place], [place] [id number] Director: El Case PhD, Phone: [phone] Performed By: #### L 100.0100, L501.6710, L3410.9999, L500.4050 ####[facility] [address] [place], [address] Bilirubin Test strip Ql (U)O rdered By: Rudy Branch on 04-27-2024 Bilirubin Ql (U) Negative Negative [facility] Clarity (U)Ordered By: Rudy Branch on 04-27-2024 Urine clarity Clear Clear [facility] Color (U)Ordered By: Rudy Daugherty on 04-27-2024 Urine color determination Yellow Yellow [facility] Glucose Ql (U)Ordered By: Krzysztof Branch on 04-27-2024 Urine Glucose (UA) Normal mg/dl Normal [facility] Ketones Test strip Ql (U)Ord ered By: Rudy Branch on 04-27-2024 Ketones Ql (U) Negative Negative [facility] L/S Spine Min 4 Viewson 03-31 0 L/S Spine Min 4 Views Normal [facility] Nitrite Test strip Ql (U)Ord ered By: Rudy Branch on 04-27-2024 Nitrite Ql (U) Negative Negative [facility] Orthopedic Visit Reporton Orthopedic Visit Report Normal [facility] Protein Test strip Ql (U)Ord ered By: Rudy Branch on 04-27-2024 Protein Ql (U) Negative Negative [facility] Specific gravity (U) [Rel de nsity]Ordered By: Rudy Branch on 04-27-2024 Urine specific gravity measurement 1.010 1.002-1.030 [facility] Urinalysis, Routine (Dipstic k)on 04-27-2024 BILIRUBIN URINE Negative Normal Negative [facility] Comment on above: Order Comment: Urine , Random Performed By: #### M .2199, L4 ####[facility] [address] [place], [address] Clarity (U) Clear Normal Clear [facility] Comment on above: Order Comment: Urine , Random Performed By: #### M , L4 ####[facility] [address] [place], [address] Color (U) Yellow Normal Yellow [facility] Comment on above: Order Comment: Urine , Random Performed By: #### M 100.2199, L4 ####[facility] [address] [place], [address] GLUCOSE, UR Normal Normal Normal [facility] Comment on above: Order Comment: Urine , Random Performed By: #### M 100.2199, ####[facility] [address] [place], [address] KETONE UR Negative Normal Negative [facility] Comment on above: Order Comment: Urine , Random Performed By: #### M 100.2199, L4 ####[facility] [address] [place], [address] LEUK ESTERASE Negative Normal Negative [facility] Comment on above: Order Comment: Urine , Random Performed By: #### M 100.2199, L4 ####[facility] [address] [place], [address] Nitrite Ql (U) Negative Normal Negative [facility] Comment on above: Order Comment: Urine , Random Performed By: #### M 100.2199, L4.2010 ####[facility] [address] [place], [address] OCCULT BLOOD-UR Negative Normal Negative [facility] Comment on above: Order Comment: Urine , Random Performed By: #### M 100.2199, L4 ####[facility] [address] [place], [address] pH UR 6.5 Normal 5.0 - 8.0 [facility] Comment on above: Order Comment: Urine , Random Performed By: #### M .2199, L4 ####[facility] [address] [place], [address] PROT DIPSTX Negative Normal Negative [facility] Comment on above: Order Comment: Urine , Random Performed By: #### M 100.2199, L4 ####[facility] [address] [place], [address] SP.GR. DIPSTX 1.010 Normal 1.002-1.030 [facility] Comment on above: Order Comment: Urine , Random Performed By: #### M 100.2199, L4 ####[facility] [address] [place], [address] UROBILI Normal Normal Normal [facility] Comment on above: Order Comment: Urine , Random Performed By: #### M 100.2199, L4 ####[facility] [address] [place], [address] Urine blood detectionOrdered By: Rudy Branch on 04-27-2024 Urine Occult Blood Negative Negative [facility] Urine clarityOrdered By: Yulissa Branch on 04-27-2024 Clarity (U) Clear Clear [facility] Urine color determinationOrd ered By: Rudy Branch on 04-27-2024 Color (U) Yellow Yellow [facility] Urine cultureOrdered By: Yulissa Branch on 04-27-2024 Bacteria identified Cx Nom (U) Positive Abnormal [facility] Urine culture Positive Abnormal [facility] Urine glucose detectionOrder ed By: Rudy Branch on 04-27-2024 Glucose Ql (U) Normal mg/dl Normal [facility] Urine glucose detection Normal mg/dl Normal [facility] Urine leukocyte esterase det ection by dipstickOrdered By: Rudy Branch on 04-27-2024 Leukocyte esterase Test strip Ql (U) Negative Negative [facility] Urine pHOrdered By: Rudy ji on 04-27-2024 pH (U) 6.5 [pH] 5.0 - 8.0 [facility] Urine specific gravity measu rementOrdered By: Rudy Branch on 04-27-2024 Specific gravity (U) [Rel density] 1.010 1.002-1.030 [facility] Urine total bilirubin detect ion by test stripOrdered By: Rudy Branch on 04-27-2024 Urine total bilirubin detection by test strip Negative Negative [facility] Urine urobilinogen measureme ntOrdered By: Rudy Branch on 04-27-2024 Urobilinogen Ql (U) Normal mg/dl Normal [facility] Urobilinogen Ql (U)Ordered B y: Rudy Branch on 04-27-2024 Urine Urobilinogen Normal mg/dl Normal [facility] pH (U)Ordered By: Rudy whitmore on 04-27-2024 Urine pH 6.5 5.0 - 8.0 [facility] .Auto Diffon 04-24-2024 Basophil, Absolute 0.1 10 3/mcL Normal 0.0-0.2 [facility] Comment on above: Performed By: #### A KARLEE, MORPH, CBC, ADIFF, GFR, PREGS, CMP, LIP, MDW #### [address] [place], [place] [address] Basophils/100 WBC (Bld) 0.6 % Normal 0.0-2.5 [facility] Comment on above: Performed By: #### A KARLEE, MORPH, CBC, ADIFF, GFR, PREGS, CMP, LIP, MDW #### [address] [address] Eosinophil, Absolute 0.3 10 3/mcL Normal 0.0-0.7 [facility] Comment on above: Performed By: #### A KARLEE, MORPH, CBC, ADIFF, GFR, PREGS, CMP, LIP, MDW #### [address] [address] Eosinophils/100 WBC (Bld) 2.3 % Normal 0.0-7.0 [facility] Comment on above: Performed By: #### A KARLEE, MORPH, CBC, ADIFF, GFR, PREGS, CMP, LIP, MDW #### [address] [address] Lymphocyte, Absolute 5.6 10 3/mcL High 0.9-4.3 [facility] Comment on above: Performed By: #### A KARLEE, MORPH, CBC, ADIFF, GFR, PREGS, CMP, LIP, MDW #### [address] [address] Lymphocytes/100 WBC (Bld) 51.4 % High 20.0-40.0 [facility] Comment on above: Performed By: #### A KARLEE, MORPH, CBC, ADIFF, GFR, PREGS, CMP, LIP, MDW #### [address] [address] Monocyte, Absolute 0.7 10 3/mcL Normal 0.1-1.4 [facility] Comment on above: Performed By: #### A KARLEE, MORPH, CBC, ADIFF, GFR, PREGS, CMP, LIP, MDW #### [address] [address] Monocytes/100 WBC (Bld) 6.1 % Normal 2.0-13.0 [facility] Comment on above: Performed By: #### A KARLEE, MORPH, CBC, ADIFF, GFR, PREGS, CMP, LIP, MDW #### [address] [address] Neutrophils/100 WBC (Bld) 39.6 % Low 50.0-75.0 [facility] Comment on above: Performed By: #### A KARLEE, MORPH, CBC, ADIFF, GFR, PREGS, CMP, LIP, MDW #### [address] [address] .MDWon 04-24-2024 Monocyte Distribution Width 18.16 Normal 0.00-20.00 [facility] Comment on above: Result Comment: For ED adult patients suspected of sepsis, MDW<=20.0 does not rule out sepsis or risk of sepsis Performed By: #### A KARLEE, MORPH, CBC, ADIFF, GFR, PREGS, CMP, LIP, MDW #### [address] [address] .Morphon 04-24-2024 Platelet Estimate Normal Normal [facility] Comment on above: Performed By: #### A KARLEE, MORPH, CBC, ADIFF, GFR, PREGS, CMP, LIP, MDW #### [address] [address] RBC morphology finding Nom (Bld) Normal Normal [facility] Comment on above: Performed By: #### A KARLEE, MORPH, CBC, ADIFF, GFR, PREGS, CMP, LIP, MDW #### [address] [address] .NEUABSon 04-24-2024 Neutrophil, Absolute 4.3 10 3/mcL Normal 2.3-8.1 [facility] Comment on above: Performed By: #### A KARLEE, MORPH, CBC, ADIFF, GFR, PREGS, CMP, LIP, MDW #### [address] [address] CBCon 04-24-2024 Erythrocyte distribution width (RBC) [Ratio] 13.2 % Normal 11.5-15.5 [facility] Comment on above: Performed By: #### A KARLEE, MORPH, CBC, ADIFF, GFR, PREGS, CMP, LIP, MDW #### [address] [address] Hematocrit (Bld) [Volume fraction] 39.7 % Normal 34.0-46.0 [facility] Comment on above: Performed By: #### A KARLEE, MORPH, CBC, ADIFF, GFR, PREGS, CMP, LIP, MDW #### [place] [address] Hgb 13.6 G/dL Normal 12.0-16.0 [facility] Comment on above: Performed By: #### A KARLEE, MORPH, CBC, ADIFF, GFR, PREGS, CMP, LIP, MDW #### [place] [address] MCH (RBC) [Entitic mass] 28.9 pg Normal 27.0-33.0 [facility] Comment on above: Performed By: #### A KARLEE, MORPH, CBC, ADIFF, GFR, PREGS, CMP, LIP, MDW #### [address] [address] MCHC 34.2 G/dL Normal 32.0-36.0 [facility] Comment on above: Performed By: #### A KARLEE, MORPH, CBC, ADIFF, GFR, PREGS, CMP, LIP, MDW #### [address] [address] MCV (RBC) [Entitic vol] 84.5 fL Normal 80.0-99.0 [facility] Comment on above: Performed By: #### A KARLEE, MORPH, CBC, ADIFF, GFR, PREGS, CMP, LIP, MDW #### [address] [address] Platelet 311 10 3/mcL Normal 150-450 [facility] Comment on above: Performed By: #### A KARLEE, MORPH, CBC, ADIFF, GFR, PREGS, CMP, LIP, MDW #### [place] [address] Platelet mean volume (Bld) [Entitic vol] 7.0 fL Normal 6.6-10.5 [facility] Comment on above: Performed By: #### A KARLEE, MORPH, CBC, ADIFF, GFR, PREGS, CMP, LIP, MDW #### [place] [address] [place], [place] [address] RBC 4.70 10 6/mcL Normal 4.10-5.30 [facility] Comment on above: Performed By: #### A KARLEE, MORPH, CBC, ADIFF, GFR, PREGS, CMP, LIP, MDW #### [place] [address] [place], [place] [address] WBC 10.9 10 3/mcL High 4.5-10.8 [facility] Comment on above: Performed By: #### A KARLEE, MORPH, CBC, ADIFF, GFR, PREGS, CMP, LIP, MDW #### [place] [address] [place], [place] [address] CT ABD/PELVIS W/ IV CONTRAST ONLYon 04-24-2024 CT ABD/PELVIS W/ IV CONTRAST ONLY ORIGINAL EXAMINATION: CT OF THE ABDOMEN AND PELVIS WITH CONTRAST TECHNIQUE: CT of the abdomen and pelvis was performed with the administration of intravenous contrast. Multiplanar reformatted images are provided for review. Automated exposure control, iterative reconstruction, and/or weight based adjustment of the mA/kV was utilized to reduce the radiation dose to as low as reasonably achievable. COMPARISON: CT abdomen/pelvis 11/03/2023 HISTORY: ORDERING SYSTEM PROVIDED HISTORY: Reason for Exam: pain FINDINGS: LOWER THORAX: The imaged lungs are clear. No visible pericardial or pleural effusion. GI TRACT: No dilated segments of bowel. No abnormal mural thickening or hyperenhancement. Normal appendix. SOLID ORGANS: The liver, spleen, pancreas, and adrenal glands are unremarkable. There is symmetric enhancement of the kidneys. No urolithiasis or hydronephrosis. The urinary bladder is unremarkable. The uterus is surgically absent. No adnexal mass. LYMPH/VASCULAR/MESENTE RY: No abdominopelvic lymphadenopathy, free fluid, or free air. No acute vascular abnormality. SOFT TISSUES/BONES: No acute soft tissue or bony abnormality. IMPRESSION: No acute finding in the abdomen or pelvis. I have personally reviewed the images of this examination and agree with the resident's findings and interpretation. Interpreted by: Zoraida Burrell MD Preliminary Report By: Mack Martinez Electronically signed By Zoraida Burrell MD Dictated Date: 04/24/2024 12:22:25 AM Prelim Date: 04/24/2024 12:29:12 AM Sign Date: 04/24/2024 12:33:06 AM Ordering Provider: MONI ALCANTARA [facility] .GFRon 04-23-2024 GFR 98 ml/min/1.73sqm [facility] Comment on above: Result Comment: GFR Population mean for , [...] 15 mL/min/1.73 square meters Performed By: #### A KARLEE, MORPH, CBC, ADIFF, GFR, PREGS, CMP, LIP, MDW #### [address] [address] GFR Non- 81 ml/min/1.73sqm [facility] Comment on above: Result Comment: GFR Population mean for , [...] 15 mL/min/1.73 square meters Performed By: #### A KARLEE, MORPH, CBC, ADIFF, GFR, PREGS, CMP, LIP, MDW #### [address] [address] .Urinalysis Microscopic (AO) on 04-23-2024 UA Bacteria 3+ /hpf Abnormal [facility] Comment on above: Performed By: #### A KARLEE, MORPH, CBC, ADIFF, GFR, PREGS, CMP, LIP, MDW #### [place] [address] UA RBC 5-10 Abnormal None Seen [facility] Comment on above: Performed By: #### A KARLEE, MORPH, CBC, ADIFF, GFR, PREGS, CMP, LIP, MDW #### [address] [address] UA Squam Epithelial LOADED Abnormal None Seen [facility] Comment on above: Performed By: #### A KARLEE, MORPH, CBC, ADIFF, GFR, PREGS, CMP, LIP, MDW #### [address] [address] UA WBC 0-5 Abnormal None Seen [facility] Comment on above: Performed By: #### A KARLEE, MORPH, CBC, ADIFF, GFR, PREGS, CMP, LIP, MDW #### [place] [address] UA Yeast 2+ /hpf Abnormal [facility] Comment on above: Performed By: #### A KARLEE, MORPH, CBC, ADIFF, GFR, PREGS, CMP, LIP, MDW #### [address] [address] CMPon 04-23-2024 Albumin Level 4.0 G/dL Normal 3.5-5.0 [facility] Comment on above: Performed By: #### A KARLEE, MORPH, CBC, ADIFF, GFR, PREGS, CMP, LIP, MDW #### [place] [address] Albumin/Globulin [Mass ratio] 1.0 {ratio} Low 1.1-2.5 [facility] Comment on above: Performed By: #### A KARLEE, MORPH, CBC, ADIFF, GFR, PREGS, CMP, LIP, MDW #### [address] [address] ALP [Catalytic activity/Vol] 89 U/L Normal 40-135 [facility] Comment on above: Performed By: #### A KARLEE, MORPH, CBC, ADIFF, GFR, PREGS, CMP, LIP, MDW #### [address] [address] ALT [Catalytic activity/Vol] 29 U/L Normal 14-59 [facility] Comment on above: Performed By: #### A KARLEE, MORPH, CBC, ADIFF, GFR, PREGS, CMP, LIP, MDW #### [address] [address] AST [Catalytic activity/Vol] 20 U/L Normal 10-40 [facility] Comment on above: Performed By: #### A KARLEE, MORPH, CBC, ADIFF, GFR, PREGS, CMP, LIP, MDW #### [address] [address] Bili Total 0.2 mg/dL Normal 0.2-1.0 [facility] Comment on above: Result Comment: Use of this assay is not recommended for patients undergoing treatment with eltrombopag due to the potential for falsely elevated results. Performed By: #### A KARLEE, MORPH, CBC, ADIFF, GFR, PREGS, CMP, LIP, MDW #### [address] [address] BUN/Creatinine Ratio 13 ratio Normal 7-27 [facility] Comment on above: Performed By: #### A KARLEE, MORPH, CBC, ADIFF, GFR, PREGS, CMP, LIP, MDW #### [address] [address] Calcium [Mass/Vol] 9.0 mg/dL Normal 8.4-10.2 [facility] Comment on above: Performed By: #### A KARLEE, MORPH, CBC, ADIFF, GFR, PREGS, CMP, LIP, MDW #### [address] [address] Chloride [Moles/Vol] 102 mmol/L Normal 98-107 [facility] Comment on above: Performed By: #### A KARLEE, MORPH, CBC, ADIFF, GFR, PREGS, CMP, LIP, MDW #### [place] [address] CO2 [Moles/Vol] 30 mmol/L High 22-29 [facility] Comment on above: Performed By: #### A KARLEE, MORPH, CBC, ADIFF, GFR, PREGS, CMP, LIP, MDW #### [place] [address] Creatinine [Mass/Vol] 0.79 mg/dL Normal 0.55-1.02 [facility] Comment on above: Result Comment: Test ing performed on Siemens Dimension EXL analyzer using a modified kinetic Kristy technique. Performed By: #### A KARLEE, MORPH, CBC, ADIFF, GFR, PREGS, CMP, LIP, MDW #### [place] [address] Electrolyte Balance 8.0 mEq/L Normal 4.0-15.0 [facility] Comment on above: Performed By: #### A KARLEE, MORPH, CBC, ADIFF, GFR, PREGS, CMP, LIP, MDW #### [place] [address] Globulin 4.0 G/dL Normal [facility] Comment on above: Performed By: #### A KARLEE, MORPH, CBC, ADIFF, GFR, PREGS, CMP, LIP, MDW #### [place] [address] Glucose [Mass/Vol] 116 mg/dL High 70-105 [facility] Comment on above: Performed By: #### A KARLEE, MORPH, CBC, ADIFF, GFR, PREGS, CMP, LIP, MDW #### [address] [place] [address] Potassium [Moles/Vol] 3.1 mmol/L Low 3.5-5.1 [facility] Comment on above: Performed By: #### A KARLEE, MORPH, CBC, ADIFF, GFR, PREGS, CMP, LIP, MDW #### [address] [address] Sodium [Moles/Vol] 140 mmol/L Normal 136-145 [facility] Comment on above: Performed By: #### A KARLEE, MORPH, CBC, ADIFF, GFR, PREGS, CMP, LIP, MDW #### [address] [address] Total Protein 8.0 G/dL Normal 6.4-8.2 [facility] Comment on above: Performed By: #### A KARLEE, MORPH, CBC, ADIFF, GFR, PREGS, CMP, LIP, MDW #### [place] [address] Urea nitrogen [Mass/Vol] 10 mg/dL Normal 7-18 [facility] Comment on above: Performed By: #### A KARLEE, MORPH, CBC, ADIFF, GFR, PREGS, CMP, LIP, MDW #### [address] [address] LABORATORYOrdered By: SYSTEM SYSTEM on 04-23-2024 Albumin BCP dye [Mass/Vol] 4.0 G/dL Normal 3.5 - 5.0 G/dL AO ADM SS Albumin/Globulin [Mass ratio] 1.0 {ratio} Low 1.1 - 2.5 ratio AO ADM SS ALP [Catalytic activity/Vol] 89 U/L Normal 40 - 135 U/L AO ADM SS ALT With P-5'-P [Catalytic activity/Vol] 29 U/L Normal 14 - 59 U/L AO ADM SS AST With P-5'-P [Catalytic activity/Vol] 20 U/L Normal 10 - 40 U/L AO ADM SS Basophils (Bld) [#/Vol] 0.1 103/mcL Normal 0.0 - 0.2 10^3/mcL AO Workflow SS Basophils/100 WBC (Bld) 0.6 % Normal 0.0 - 2.5 % AO Workflow SS Bilirubin [Mass/Vol] 0.2 mg/dL Normal 0.2 - 1 .0 mg/dL AO ADM SS Comment on above: Interpretive Data: U se of this assay is not recommended for patients undergoing treatment with eltrombopag due to the potential for falsely elevated results. Calcium [Mass/Vol] 9.0 mg/dL Normal 8.4 - 10. 2 mg/dL AO ADM SS Chloride [Moles/Vol] 102 mmol/L Normal 98 - 10 7 mmol/L AO ADM SS CO2 [Moles/Vol] 30 mmol/L High 22 - 29 mmol/L AO ADM SS Creatinine [Mass/Vol] 0.79 mg/dL Normal 0.55 - 1.02 mg/dL AO ADM SS Comment on above: Interpretive Data: T esting performed on [employer] Dimension EXL analyzer using a modified kinetic Kristy technique. Electrolyte Balance 8.0 mEq/L Normal 4.0 - 15 .0 mEq/L AO ADM SS Eosinophil, Absolute 0.3 103/mcL Normal 0.0 - 0 .7 10^3/mcL AO Workflow SS Eosinophils/100 WBC (Bld) 2.3 % Normal 0.0 - 7.0 % AO Workflow SS Erythrocyte distribution width (RBC) [Ratio] 13.2 % Normal 11.5 - 15.5 % AO Workflow SS GFR/1.73 sq M.predicted among blacks MDRD (S/P/Bld) [Vol rate/Area] 98 ml/min/1.73sqm Invalid Interpretation Code AO Chemistry S Comment on above: Interpretive Data: GFR Population mean for , Non- Americans Ages 20-29 = 116 mL/min/1.73 sq.m. Ages 30-39 = 107 mL/min/1.73 sq.m. Ages 40-49 = 99 mL/min/1.73 sq.m. Ages 50-59 = 93 mL/min/1.73 sq.m. Ages 60-69 = 85 mL/min/1.73 sq.m. Ages 70+ = 75 mL/min/1.73 sq.m. Chronic Kidney Disease: Less than 60 mL/min/1.73 square meters End Stage Renal Disease: Less than 15 mL/min/1.73 square meters GFR/1.73 sq M.predicted among non-blacks MDRD (S/P/Bld) [Vol rate/Area] 81 ml/min/1.73sqm Invalid Interpretation Code AO Chemistry S Comment on above: Interpretive Data: GFR Population mean for , Non- Americans Ages 20-29 = 116 mL/min/1.73 sq.m. Ages 30-39 = 107 mL/min/1.73 sq.m. Ages 40-49 = 99 mL/min/1.73 sq.m. Ages 50-59 = 93 mL/min/1.73 sq.m. Ages 60-69 = 85 mL/min/1.73 sq.m. Ages 70+ = 75 mL/min/1.73 sq.m. Chronic Kidney Disease: Less than 60 mL/min/1.73 square meters End Stage Renal Disease: Less than 15 mL/min/1.73 square meters Globulin 4.0 G/dL Invalid Interpretation Code AO ADM SS Glucose [Mass/Vol] 116 mg/dL High 70 - 105 mg/dL AO ADM SS Hematocrit (Bld) [Volume fraction] 39.7 % Normal 34.0 - 46.0 % AO Workflow SS Hemoglobin (Bld) [Mass/Vol] 13.6 G/dL Normal 12.0 - 16.0 G/dL AO Workflow SS Lipase [Catalytic activity/Vol] 68 U/L Normal 16 - 77 U/L AO ADM SS Lymphocytes (Bld) [#/Vol] 5.6 103/mcL High 0.9 - 4.3 10^3/mcL AO Workflow SS Lymphocytes/100 WBC (Bld) 51.4 % High 20.0 - 40.0 % AO Workflow SS MCH (RBC) [Entitic mass] 28.9 pg Normal 27.0 - 33.0 pg AO Workflow SS MCHC 34.2 G/dL Normal 32.0 - 36.0 G/dL AO Workflow SS MCV (RBC) [Entitic vol] 84.5 fL Normal 80.0 - 99.0 fL AO Workflow SS Monocyte distribution width Auto (Bld) [Entitic vol] 18.16 1 Normal 0.00 - 20.00 AO Workflow SS Comment on above: Result Comment: For ED adult patients suspected of sepsis, MDW<=20.0 does not rule out sepsis or risk of sepsis Monocytes (Bld) [#/Vol] 0.7 103/mcL Normal 0.1 - 1.4 10^3/mcL AO Workflow SS Monocytes/100 WBC (Bld) 6.1 % Normal 2.0 - 13.0 % AO Workflow SS Neutrophils (Bld) [#/Vol] 4.3 103/mcL Normal 2.3 - 8.1 10^3/mcL AO Workflow SS Neutrophils/100 WBC (Bld) 39.6 % Low 50.0 - 75.0 % AO Workflow SS Platelet mean volume (Bld) [Entitic vol] 7.0 fL Normal 6.6 - 10.5 fL AO Workflow SS Platelets (Bld) [#/Vol] 311 103/mcL Normal 150 - 450 10^3/mcL AO Workflow SS Platelets LM Ql (Bld) Normal *NA* (04/23/24 11:14 PM) Invalid Interpretation Code AO Workflow SS Potassium [Moles/Vol] 3.1 mmol/L Low 3.5 - 5.1 mmol/L AO ADM SS Protein [Mass/Vol] 8.0 G/dL Normal 6.4 - 8.2 G/dL AO ADM SS RBC (Bld) [#/Vol] 4.70 106/mcL Normal 4.10 - 5.3 0 10^6/mcL AO Workflow SS RBC morphology finding Nom (Bld) Normal *NA* (04/23/24 11:14 PM) Invalid Interpretation Code AO Workflow SS Sodium [Moles/Vol] 140 mmol/L Normal 136 - 145 mmol/L AO ADM SS Urea nitrogen [Mass/Vol] 10 mg/dL Normal 7 - 18 mg/dL AO ADM SS Urea nitrogen/Creatinine [Mass ratio] 13 ratio Normal 7 - 27 ratio AO ADM SS WBC (Bld) [#/Vol] 10.9 103/mcL High 4.5 - 10.8 10^3/mcL AO Workflow SS LABORATORYOrdered By: Robin Angel on 04-23-2024 Appearance (U) Cloudy *ABN* (04/23/24 11:14 PM) Invalid Interpretation Code Clear AO Auto Urine SS Bacteria LM.HPF (Urine sed) [#/Area] 3 /[HPF] Invalid Interpretation Code AO Auto Urine SS Bilirubin Ql (U) Negative (04/23/24 11:14 PM) Normal Negative AO Auto Urine SS Color (U) Yellow (04/23/24 11:14 PM) Normal AO Auto Urine SS Glucose Test strip (U) [Mass/Vol] Negative Normal Negative AO Auto Urine SS HCG ( test) Ql (U) Negative (04/23/24 11:14 PM) Normal AO Rapid Testing SS Hemoglobin Auto test strip (U) [Mass/Vol] Trace *ABN* (04/23/24 11:14 PM) Invalid Interpretation Code Negative AO Auto Urine SS Ketones Ql (U) Negative Normal Negative AO Auto Ur ine SS test (s) int Not detected Invalid Interpretation Code AO Rapid Testing SS UA Leuk Est Negative (04/23/24 11:14 PM) Normal Negative AO Auto Urine SS UA Nitrite Negative (04/23/24 11:14 PM) Normal Negative AO Auto Urine SS UA pH 6.0 (04/23/24 11:14 PM) Normal 5.0 - 8.0 AO Auto Urine SS UA Protein Negative Normal Negative AO Auto Urine SS UA RBC 5-10 /HPF Invalid Interpretation Code None Seen AO Auto Urine SS UA Spec Grav 1.015 (04/23/24 11:14 PM) Normal 1.015-1.025 AO Auto Urine SS UA Specimen Type Void (04/23/24 11:14 PM) Normal AO Auto Urine SS UA Squam Epithelial LOADED /HPF Invalid Interpretation Code None Seen AO Auto Urine SS UA Urobilinogen 0.2 E.U./dL Normal 0.2-1.0 AO Auto Urine SS WBC LM.HPF (Urine sed) [#/Area] 0-5 /HPF Invalid Interpretation Code None Seen AO Auto Urine SS Yeast LM.HPF (Urine sed) [#/Area] 2 /[HPF] Invalid Interpretation Code AO Auto Urine SS LIPon 04-23-2024 Lipase Level 68 U/L Normal 16-77 [facility] Comment on above: Performed By: #### A KARLEE, MORPH, CBC, ADIFF, GFR, PREGS, CMP, LIP, MDW #### [place] [id number] [place], [place] [address] PREGSon 04-23-2024 test (s) Negative Normal [facility] Comment on above: Performed By: #### A KARLEE, MORPH, CBC, ADIFF, GFR, PREGS, CMP, LIP, MDW #### [place] [id number] [place], [place] [address] test (s) int Not detected Invalid Interpretation Code [facility] Comment on above: Performed By: #### A KARLEE, MORPH, CBC, ADIFF, GFR, PREGS, CMP, LIP, MDW #### [address] [address] UAon 04-23-2024 Color (U) Yellow Normal [facility] Comment on above: Performed By: #### A KARLEE, MORPH, CBC, ADIFF, GFR, PREGS, CMP, LIP, MDW #### [address] [address] Glucose (U) [Mass/Vol] Negative Normal Negative [facility] Comment on above: Performed By: #### A KARLEE, MORPH, CBC, ADIFF, GFR, PREGS, CMP, LIP, MDW #### [address] [address] Ketones Ql (U) Negative Normal Negative [facility] Comment on above: Performed By: #### A KARLEE, MORPH, CBC, ADIFF, GFR, PREGS, CMP, LIP, MDW #### [address] [address] UA Appear Cloudy Abnormal Clear [facility] Comment on above: Performed By: #### A KARLEE, MORPH, CBC, ADIFF, GFR, PREGS, CMP, LIP, MDW #### [address] [address] UA Blood Trace Abnormal Negative [facility] Comment on above: Performed By: #### A KARLEE, MORPH, CBC, ADIFF, GFR, PREGS, CMP, LIP, MDW #### [address] [address] UA Leuk Est Negative Normal Negative [facility] Comment on above: Performed By: #### A KARLEE, MORPH, CBC, ADIFF, GFR, PREGS, CMP, LIP, MDW #### [address] [address] UA Nitrite Negative Normal Negative [facility] Comment on above: Performed By: #### A KARLEE, MORPH, CBC, ADIFF, GFR, PREGS, CMP, LIP, MDW #### [place] [address] UA pH 6.0 Normal 5.0 - 8.0 [facility] Comment on above: Performed By: #### A KARLEE, MORPH, CBC, ADIFF, GFR, PREGS, CMP, LIP, MDW #### [place] [address] UA Protein Negative Normal Negative [facility] Comment on above: Performed By: #### A KARLEE, MORPH, CBC, ADIFF, GFR, PREGS, CMP, LIP, MDW #### [place] [address] UA Spec Grav 1.015 Normal 1.015-1.025 [facility] Comment on above: Performed By: #### A KARLEE, MORPH, CBC, ADIFF, GFR, PREGS, CMP, LIP, MDW #### [place] [address] UA Specimen Type Void Normal [facility] Comment on above: Performed By: #### A KARLEE, MORPH, CBC, ADIFF, GFR, PREGS, CMP, LIP, MDW #### [place] [address] UA Urobilinogen 0.2 E.U./dL Normal 0.2-1.0 [facility] Comment on above: Performed By: #### A KARLEE, MORPH, CBC, ADIFF, GFR, PREGS, CMP, LIP, MDW #### [place] [address] Urobilinogen (U) [Mass/Vol] Negative Normal Negative [facility] Comment on above: Performed By: #### A KARLEE, MORPH, CBC, ADIFF, GFR, PREGS, CMP, LIP, MDW #### [place] [address] MR/BMS.BVSon 04-19-2024 MR/BMS.BVS Normal [facility] ALP [Catalytic activity/Vol] Ordered By: Ceci Martinez on 04-18-2024 Serum or plasma alkaline phosphatase measurement 80 U/L 45-117 [facility] ALT [Catalytic activity/Vol] Ordered By: Ceci Martinez on 04-18-2024 Serum or plasma alanine aminotransferase (ALT) measurement 25 U/L 13-56 [facility] Absolute lymphocyte countOrd ered By: Ceci Martinez on 04-18-2024 Lymphocytes Auto (Unsp spec) [#/Vol] 3.50 10*3/uL 0.83-4.51 [facility] Absolute neutrophil countOrd ered By: Ceci Martinez on 04-18-2024 Neutrophils (Bld) [#/Vol] 4.1 10*3/uL 2.0-7.7 [facility] Absolute neutrophil count 4.1 X10^3/uL 2.0-7.7 [facility] Albumin [Mass/Vol]Ordered By : Ceci Martinez on 04-18-2024 Serum or plasma albumin measurement (mass/volume) 3.7 g/dL 3.2-5.0 [facility] Albumin to globulin ratioOrd ered By: Ceci Martinez on 04-18-2024 Albumin/Globulin [Mass ratio] 0.9 {ratio} 0.9-2.4 [facility] Albumin to globulin ratio 0.9 RATIO 0.9-2.4 [facility] Automated lymphocyte count a s percentage of total leukocytesOrdered By: Ceci Martinez on 04-18-2024 Lymphocytes/100 WBC Auto (Unsp spec) 42.0 % High 19-41 [facility] Basophil percentageOrdered B y: Ceci Martinez on 04-18-2024 Basophils/100 WBC (Bld) 0.5 % 0-1 [facility] Basophil percentage 0.5 % 0-1 [facility] Bilirubin, totalOrdered By: Ceci Martinez on 04-18-2024 Bilirubin [Mass/Vol] 0.40 mg/dL 0.20-1.00 [facility] Comment on above: For patients on eltr ombopag therapy, use of Dimension [employer] TBIL is not recommended. Bilirubin, total 0.40 mg/dL 0.20-1.00 [facility] Blood urea nitrogen (BUN)/cr eatinine ratioOrdered By: Ceci Martinez on 04-18-2024 Urea nitrogen/Creatinine [Mass ratio] 11.6 mg/mg 01-15 [facility] Blood urea nitrogen (BUN)/creatinine ratio 11.6 RATIO 01-15 [facility] C-reactive protein measureme nt by high sensitivity methodOrdered By: Ceci Martinez on 04-18-2024 C-Reactive Protein Extended Range 8.45 mg/L High 0.0-3.0 [facility] Comment on above: C-Reactive Protein ( CRP) provides useful information for thediagnosis, therapy and monitoring of inflammatory processesand associated diseases. For the evaluation of Relative Riskfor Cardiovascular Disease, a High Sensitivity CRP (HSCRP)should be ordered. C-reactive protein measurement by high sensitivity method 8.45 mg/L High 0.0-3.0 [facility] C-reactive protein measurement by high sensitivity method 8.45 mg/L High 0.0-3.0 [facility] CBC W/Diff, Automatedon 03-30 Absolute Lymph 3.50 X10 3/uL Normal 0.83-4.51 [facility] Comment on above: Performed By: #### L 100.0100, L501.6710, L3410.9999, L500.4050 ####[facility] [id number] [place], [address] Absolute Neut 4.1 X10 3/uL Normal 2.0-7.7 [facility] Comment on above: Performed By: #### L 100.0100, L501.6710, L3410.9999, L500.4050 ####[facility] [id number] [place], [address] Basophils/100 WBC (Bld) 0.5 % Normal 0-1 [facility] Comment on above: Performed By: #### L 100.0100, L501.6710, L3410.9999, L500.4050 ####[facility] [id number] [place], [address] Eosinophils/100 WBC (Bld) 1.8 % Normal 0-5 [facility] Comment on above: Performed By: #### L 100.0100, L501.6710, L3410.9999, L500.4050 ####[facility] [id number] [place], [address] Erythrocyte distribution width (RBC) [Ratio] 12.8 % Normal 11.6-14.6 [facility] Comment on above: Performed By: #### L 100.0100, L501.6710, L3410.9999, L500.4050 ####[facility] [id number] [place], [address] Hematocrit (Bld) [Volume fraction] 39.6 % Normal 37-47 [facility] Comment on above: Performed By: #### L 100.0100, L501.6710, L3410.9999, L500.4050 ####[facility] [id number] [place], [address] Hemoglobin (Bld) [Mass/Vol] 13.2 g/dL Normal 12.0-15.0 [facility] Comment on above: Performed By: #### L 100.0100, L501.6710, L3410.9999, L500.4050 ####[facility] [id number] [place], [address] IG% 0.400 Normal 0.0-0.9 [facility] Comment on above: Result Comment: IG% - Immature Granulocytes (promyelocytes, myelocytes andmetamyelocytes) > 1% indicates that a LEFT SHIFT is Present. Performed By: #### L 100.0100, L501.6710, L3410.9999, L500.4050 ####[facility] [id number] [place], [address] Lymphocytes/100 WBC (Bld) 42.0 % High 19-41 [facility] Comment on above: Performed By: #### L 100.0100, L501.6710, L3410.9999, L500.4050 ####[facility] [id number] [place], [address] MCH (RBC) [Entitic mass] 28.1 pg Normal 27.0-32.0 [facility] Comment on above: Performed By: #### L 100.0100, L501.6710, L3410.9999, L500.4050 ####[facility] [address] [place], [address] MCHC (RBC) [Mass/Vol] 33.3 g/dL Normal 32-36 [facility] Comment on above: Performed By: #### L 100.0100, L501.6710, L3410.9999, L500.4050 ####[facility] [address] [place], [address] MCV (RBC) [Entitic vol] 84.4 fL Normal 81-99 [facility] Comment on above: Performed By: #### L 100.0100, L501.6710, L3410.9999, L500.4050 ####[facility] [address] [place], [address] Monocytes/100 WBC (Bld) 5.8 % Normal 0-10 [facility] Comment on above: Performed By: #### L 100.0100, L501.6710, L3410.9999, L500.4050 ####[facility] [address] [place], [address] Neutrophils/100 WBC (Bld) 49.5 % Normal 47-70 [facility] Comment on above: Performed By: #### L 100.0100, L501.6710, L3410.9999, L500.4050 ####[facility] [address] [place], [address] Nucleated RBC (Bld) [#/Vol] 0 10*3/uL Normal 0-5 [facility] Comment on above: Performed By: #### L 100.0100, L501.6710, L3410.9999, L500.4050 ####[facility] [address] [place], [address] Platelet mean volume (Bld) [Entitic vol] 8.9 fL Normal 6.2-12.0 [facility] Comment on above: Performed By: #### L 100.0100, L501.6710, L3410.9999, L500.4050 ####[facility] [address] [place], [address] Platelets (Bld) [#/Vol] 296 10*3/uL Normal 150-450 [facility] Comment on above: Performed By: #### L 100.0100, L501.6710, L3410.9999, L500.4050 ####[facility] [address] [place], [address] RBC (Bld) [#/Vol] 4.69 10*6/uL Normal 4.2-5.4 [facility] Comment on above: Performed By: #### L 100.0100, L501.6710, L3410.9999, L500.4050 ####[facility] [address] [place], [address] RDW SD 38.9 fl Normal 35.1-43.9 [facility] Comment on above: Performed By: #### L 100.0100, L501.6710, L3410.9999, L500.4050 ####[facility] [address] [place], [address] WBC (Bld) [#/Vol] 8.3 10*3/uL Normal 4.4-11.0 [facility] Comment on above: Performed By: #### L 100.0100, L501.6710, L3410.9999, L500.4050 ####[facility] [address] [place], [address] CRPon 04-18-2024 C-REACTIVE PROT 8.45 mg/L High 0.0-3.0 [facility] Comment on above: Result Comment: C-Re active Protein (CRP) provides useful information for thediagnosis, therapy and monitoring of inflammatory processesand associated diseases. For the evaluation of Relative Riskfor Cardiovascular Disease, a High Sensitivity CRP (HSCRP)should be ordered. Performed By: #### L 100.0100, L501.6710, L3410.9999, L500.4050 ####[facility] [address] [place], [address] Calcium [Mass/Vol]Ordered By : Ceci Martinez on 04-18-2024 Serum or plasma calcium measurement (mass/volume) 9.4 mg/dL 8.5-10.1 [facility] Carbon dioxide measurementOr dered By: Ceci Martinez on 04-18-2024 CO2 [Moles/Vol] 24.0 mmol/L 21.0-32.0 [facility] Carbon dioxide measurement 24.0 mmol/L 21.0-32.0 [facility] Chloride measurementOrdered By: Ceci Martinez on 04-18-2024 Chloride [Moles/Vol] 106 mmol/L 98-107 [facility] Chloride measurement 106 mmol/L 98-107 [facility] Comprehensive Metabolic Prof ilon 04-18-2024 Albumin [Mass/Vol] 3.7 g/dL Normal 3.2-5.0 [facility] Comment on above: Performed By: #### L 100.0100, L501.6710, L3410.9999, L500.4050 ####[facility] [address] [place], [address] Albumin/Globulin [Mass ratio] 0.9 {ratio} Normal 0.9-2.4 [facility] Comment on above: Performed By: #### L 100.0100, L501.6710, L3410.9999, L500.4050 ####[facility] [address] [place], [address] ALK P 80 U/L Normal 45-117 [facility] Comment on above: Performed By: #### L 100.0100, L501.6710, L3410.9999, L500.4050 ####[facility] [address] [place], [address] ALT [Catalytic activity/Vol] 25 U/L Normal 13-56 [facility] Comment on above: Performed By: #### L 100.0100, L501.6710, L3410.9999, L500.4050 ####[facility] [address] [place], [address] AST [Catalytic activity/Vol] 16 U/L Normal 15-37 [facility] Comment on above: Performed By: #### L 100.0100, L501.6710, L3410.9999, L500.4050 ####[facility] [address] [place], [address] Bilirubin [Mass/Vol] 0.40 mg/dL Normal 0.20-1.00 [facility] Comment on above: Result Comment: For patients on eltrombopag therapy, use of Dimension [employer] TBIL is not recommended. Performed By: #### L 100.0100, L501.6710, L3410.9999, L500.4050 ####[facility] [address] [place], [address] BUN/CRE 11.6 RATIO Normal 10-20 [facility] Comment on above: Performed By: #### L 100.0100, L501.6710, L3410.9999, L500.4050 ####[facility] [address] [place], [address] CA,Total 9.4 mg/dL Normal 8.5-10.1 [facility] Comment on above: Performed By: #### L 100.0100, L501.6710, L3410.9999, L500.4050 ####[facility] [address] [place], [address] Chloride [Moles/Vol] 106 mmol/L Normal 98-107 [facility] Comment on above: Performed By: #### L 100.0100, L501.6710, L3410.9999, L500.4050 ####[facility] [address] [place], [address] CO2 [Moles/Vol] 24.0 mmol/L Normal 21.0-32.0 [facility] Comment on above: Performed By: #### L 100.0100, L501.6710, L3410.9999, L500.4050 ####[facility] [address] [place], [address] Creatinine [Mass/Vol] 0.86 mg/dL Normal 0.55-1.02 [facility] Comment on above: Result Comment: The validity of the calculated GFR GFRAA in patients over70 years has not been determined. Clinical correlation isessential. Performed By: #### L 100.0100, L501.6710, L3410.9999, L500.4050 ####[facility] [address] [place], [address] EST GFR - AA 93 mL/min Normal >60 [facility] Comment on above: Result Comment: Afri can Lao GFR Calc Performed By: #### L 100.0100, L501.6710, L3410.9999, L500.4050 ####[facility] [address] [place], [address] GAP 8 Normal 5-15 [facility] Comment on above: Performed By: #### L 100.0100, L501.6710, L3410.9999, L500.4050 ####[facility] [address] [place], [address] GFR/1.73 sq M.predicted among non-blacks MDRD (S/P/Bld) [Vol rate/Area] 77 mL/min/{1.73_m2} Normal >60 [facility] Comment on above: Result Comment: Non- GFR Calc Performed By: #### L 100.0100, L501.6710, L3410.9999, L500.4050 ####[facility] [address] [place], [address] Globulin (S) [Mass/Vol] 4.2 g/dL Normal 2.2-4.2 [facility] Comment on above: Performed By: #### L 100.0100, L501.6710, L3410.9999, L500.4050 ####[facility] [address] [place], [address] Glucose [Mass/Vol] 116 mg/dL High 74-106 [facility] Comment on above: Result Comment: Fast ing Glucose result from 100 to 125 mg/dLsuggests IMPAIRED HOMEOSTASIS per A.D.A. criteria. Performed By: #### L 100.0100, L501.6710, L3410.9999, L500.4050 ####[facility] [address] [place], [address] Potassium [Moles/Vol] 3.7 mmol/L Normal 3.5-5.1 [facility] Comment on above: Performed By: #### L 100.0100, L501.6710, L3410.9999, L500.4050 ####[facility] [address] [place], [address] Sodium [Moles/Vol] 138 mmol/L Normal 136-145 [facility] Comment on above: Performed By: #### L 100.0100, L501.6710, L3410.9999, L500.4050 ####[facility] [address] [place], [address] T PROT 7.9 g/dL Normal 6.4-8.2 [facility] Comment on above: Performed By: #### L 100.0100, L501.6710, L3410.9999, L500.4050 ####[facility] [address] [place], [address] Urea nitrogen [Mass/Vol] 10 mg/dL Normal 7-18 [facility] Comment on above: Performed By: #### L 100.0100, L501.6710, L3410.9999, L500.4050 ####[facility] [address] [place], [address] Creatinine [Mass/Vol]Ordered By: Ceci Martinez on 04-18-2024 Serum or plasma creatinine measurement (mass/volume) 0.86 mg/dL 0.55-1.02 [facility] Eosinophil percentageOrdered By: Ceci Martinez on 04-18-2024 Eosinophils/100 WBC (Bld) 1.8 % 0-5 [facility] Eosinophil percentage 1.8 % 0-5 [facility] Erythrocyte distribution wid th (RBC) [Ratio]Ordered By: Ceci Martinez on 04-18-2024 Erythrocyte distribution width ratio 12.8 % 11.6-14.6 [facility] Erythrocyte distribution width standard deviation 38.9 fl 35.1-43.9 [facility] Erythrocyte distribution wid th ratioOrdered By: Ceci Martinez on 04-18-2024 Erythrocyte distribution width (RBC) [Ratio] 12.8 % 11.6-14.6 [facility] Erythrocyte distribution wid th standard deviationOrdered By: Ceci Martinez on 04-18-2024 Erythrocyte distribution width (RBC) [Entitic vol] 38.9 fL 35.1-43.9 [facility] Erythrocyte distribution width (RBC) [Ratio] 38.9 fl 35.1-43.9 [facility] Estimated glomerular filtrat ion rate (GFR) AmericanOrdered By: Ceci Martinez on 04-18-2024 Estimated GFR (MDRD) Amer 93 mL/min >60 [facility] Comment on above: GFR Calc Estimated glomerular filtration rate (GFR) 93 mL/min >60 [facility] Glomerular filtration rate ( GFR) estimationOrdered By: Ceci Martinez on 04-18-2024 Estimated GFR (MDRD) Non-Af Amer 77 mL/min >60 [facility] Comment on above: Non- GFR Calc GFR/1.73 sq M.predicted among non-blacks MDRD (S/P/Bld) [Vol rate/Area] 77 mL/min/{1.73_m2} >60 [facility] Glomerular filtration rate (GFR) estimation 77 mL/min >60 [facility] Glucose measurementOrdered B y: Ceci Martinez on 04-18-2024 Glucose [Mass/Vol] 116 mg/dL High 74-106 [facility] Comment on above: Fasting Glucose resu lt from 100 to 125 mg/dL suggests IMPAIRED HOMEOSTASIS per A.D.A. criteria. Glucose measurement 116 mg/dL High 74-106 [facility] Hematocrit Auto (Bld) [Volum e fraction]Ordered By: Ceci Martinez on 04-18-2024 Hematocrit (Bld) [Volume fraction] 39.6 % 37-47 [facility] Automated blood hematocrit (percentage) 39.6 % 37-47 [facility] Hemoglobin measurementOrdere d By: Ceci Martinez on 04-18-2024 Hemoglobin (Bld) [Mass/Vol] 13.2 g/dL 12.0-15.0 [facility] Hemoglobin measurement 13.2 g/dL 12.0-15.0 [facility] Immature granulocytes/100 WB C Auto (Bld)Ordered By: Ceci Martinez on 04-18-2024 Immature granulocytes/100 WBC (Bld) 0.400 % 0.0-0.9 [facility] Comment on above: IG% - Immature Granu locytes (promyelocytes, myelocytes and metamyelocytes) > 1% indicates that a LEFT SHIFT is Present. Automated immature granulocyte percentage 0.400 % 0.0-0.9 [facility] Laboratory - Chemistry and C hemistry - challengeOrdered By: Ceci Martinez on 04-18-2024 AST [Catalytic activity/Vol] 16 U/L 15-37 [facility] Lymphocytes Auto (Unsp spec) [#/Vol]Ordered By: Ceci Martinez on 04-18-2024 Lymphocytes (Bld) [#/Vol] 3.50 10*3/uL 0.83-4.51 [facility] Absolute lymphocyte count 3.50 X10^3/uL 0.83-4.51 [facility] Lymphocytes/100 WBC Auto (Un sp spec)Ordered By: Ceci Martinez on 04-18-2024 Lymphocytes/100 WBC (Bld) 42.0 % High - [facility] Automated lymphocyte count as percentage of total leukocytes 42.0 % [facility] -41 [facility] MCV (RBC) [Entitic vol]Order ed By: Ceci Martinez on 04-18-2024 MCV (mean corpuscular volume) determination 84.4 fL 81-99 [facility] MCV (mean corpuscular volume ) determinationOrdered By: Ceci Martinez on 04-18-2024 MCV (RBC) [Entitic vol] 84.4 fL 81-99 [facility] Mean corpuscular hemoglobin (MCH) determinationOrdered By: Ceci Martinez on 04-18-2024 MCH (RBC) [Entitic mass] 28.1 pg 27.0-32.0 [facility] Mean corpuscular hemoglobin (MCH) determination 28.1 pg 27.0-32.0 [facility] Mean corpuscular hemoglobin concentration (MCHC) determinationOrdered By: Ceci Martinez on 04-18-2024 MCHC (RBC) [Mass/Vol] 33.3 g/dL 32-36 [facility] Mean corpuscular hemoglobin concentration (MCHC) determination 33.3 g/dL -36 [facility] Mean platelet volume determi nationOrdered By: Ceci Martinez on 04-18-2024 Platelet mean volume (Bld) [Entitic vol] 8.9 fL 6.2-12.0 [facility] Mean platelet volume determination 8.9 fl 6.2-12.0 [facility] Monocyte percentageOrdered B y: Ceci Martinez on 04-18-2024 Monocytes/100 WBC (Bld) 5.8 % 0-10 [facility] Monocyte percentage 5.8 % 0-10 [facility] Neutrophil percentageOrdered By: Ceci Martinez on 04-18-2024 Neutrophils/100 WBC (Bld) 49.5 % 47-70 [facility] Neutrophil percentage 49.5 % 47-70 [facility] No Panel InformationOrdered By: Ceci Martinez on 04-18-2024 Miscellaneous Test COMMENT . [facility] Comment on above: Test Ordered: [id number] Adalimumab Drug + AntibodyAdalimumab Drug Level 8.6 ug/mL ES Reference Range: .Quantitation Limit: <0.6 ug/mLResults of 0.6 or higher indicate detection of adalimumab.Comments: - The optimal drug concentration depends upon patient- specific factors including the disease and desired therapeutic endpoint. - Maintenance trough concentrations >=7.5 may correspond to higher remission rates.(1) - Mucosal healing may be more likely in patients with maintenance trough levels >8.14.(2) - In rheumatoid arthritis, trough levels of 5-8 are associated with clinical (EULAR) response.(3) - This assay measures the antibody-unbound (free) fraction of adalimumab when serum anti-adalimumab antibodies are present.Anti-Adalimumab Antibody <25 ng/mL ES Reference Range: . Interpretation: The above result is an UNDETECTED Antibody titer Quantitation Limit: <25 ng/mL. Results of 25 or higher indicate detection of anti- adalimumab antibodies. 25 - 100 ng/mL: LOW titer 101 - 300 ng/mL: INTERMEDIATE titer 301 or greater ng/mL: HIGH titerComments: - Anti-drug antibody levels should be interpreted in the context of the concomitant free drug trough concentration. - Low anti-drug antibodies may be transient while high titers are likely to be more consequential.(4-6) - Some immunogenicity is reversible. Elimination of intermediate titer (and even some high titer) anti-adalimumab antibodies has been achieved with dose escalation and/or methotrexate or 6-MP.(7) - This anti-adalimumab antibody assay is drug tolerant, and all positive results are verified for anti-drug specificity by a confirmatory test.References:1. VandeCasteele N, et al. AGA Review on TDM in IBD. Gastroenterol 2017;153:835-857.2. Delam E, et al. J Crohns Col 2016;10(5):510-515.3. Rosalio MF, et al. [facility] Rheum Dis 2015;74:513-518.4. Sathya CLAUDIO, et al. ADRIAN 2011;305(14):4279-0316.5. Steenholdt C, et al. J Clin Gastroenterol 2016; 50:482-489.6. Hazel H, et al. Clin Gastroenterol Hepatol 2015; 13(3):522-530.7. Jai A, et al. Gastroenterol 2019;156(6):S-617.These tests were developed and their performancecharacteristics determined by [employer]. They have not beencleared or approved by the Food and Drug Administration.However, these electrochemiluminescence immunoassay (ECLIA)measurements of adalimumab and anti-adalimumab antibody(constituting DoseASSURE ADL) have been developed andvalidated in accordance with CLIA (Clinical LaboratoryImprovement Amendments) and the FDA Guidance document, AssayDevelopment and Validation for Immunogenicity Testing ofTherapeutic Protein Products (2019).Performed at: [facility] [address] [id number] Director: Magdi Brock MD, Phone: [phone] at: [facility] [id number] Director: El Case PhD, Phone: [phone] COMMENT . [facility] 16 U/L 15-37 [facility] Nucleated red blood cell per centageOrdered By: Ceci Martinez on 04-18-2024 Nucleated RBC/100 WBC (Bld) [Ratio] 0 % 0-5 [facility] Nucleated red blood cell percentage 0 % 0-5 [facility] Platelet countOrdered By: Jose R Martinez on 04-18-2024 Platelets (Bld) [#/Vol] 296 10*3/uL 150-450 [facility] Platelet count 296 K/mm3 150-450 [facility] Potassium measurementOrdered By: Ceci Martinez on 04-18-2024 Potassium [Moles/Vol] 3.7 mmol/L 3.5-5.1 [facility] Potassium measurement 3.7 mmol/L 3.5-5.1 [facility] RBC Auto (Bld) [#/Vol]Ordere d By: Ceci Martinez on 04-18-2024 RBC (Bld) [#/Vol] 4.69 10*6/uL 4.2-5.4 [facility] Automated blood erythrocyte count 4.69 M/mm3 4.2-5.4 [facility] Serum anion gap measurementO rdered By: Ceci Martinez on 04-18-2024 Anion gap [Moles/Vol] 8 mmol/L 5-15 [facility] Serum anion gap measurement 8 5-15 [facility] Serum globulin measurementOr dered By: Ceci Martinez on 04-18-2024 Globulin (S) [Mass/Vol] 4.2 g/dL 2.2-4.2 [facility] Serum globulin measurement 4.2 g/dL 2.2-4.2 [facility] Serum or plasma alanine benavidez otransferase (ALT) measurementOrdered By: Ceci Martinez on 04-18-2024 ALT [Catalytic activity/Vol] 25 U/L 13-56 [facility] Serum or plasma albumin kaylan urement (mass/volume)Ordered By: Ceci Martinez on 04-18-2024 Albumin [Mass/Vol] 3.7 g/dL 3.2-5.0 [facility] Serum or plasma alkaline josehp sphatase measurementOrdered By: Ceci Martinez on 04-18-2024 ALP [Catalytic activity/Vol] 80 U/L 45-117 [facility] Serum or plasma calcium kaylan urement (mass/volume)Ordered By: Ceci Martinez on 04-18-2024 Calcium [Mass/Vol] 9.4 mg/dL 8.5-10.1 [facility] Serum or plasma creatinine m easurement (mass/volume)Ordered By: Ceci Martinez on 04-18-2024 Creatinine [Mass/Vol] 0.86 mg/dL 0.55-1.02 [facility] Comment on above: The validity of the calculated GFR & GFRAA in patients over 70 years has not been determined. Clinical correlation is essential. Serum or plasma urea nitroge n measurement (mass/volume)Ordered By: Ceci Martinez on 04-18-2024 Urea nitrogen [Mass/Vol] 10 mg/dL 10-13 [facility] Sodium levelOrdered By: Daisy Martinez on 04-18-2024 Sodium [Moles/Vol] 138 mmol/L 136-145 [facility] Sodium level 138 mmol/L 136-145 [facility] Total proteinOrdered By: Hermelinda Martinez on 04-18-2024 Protein [Mass/Vol] 7.9 g/dL 6.4-8.2 [facility] Total protein 7.9 g/dL 6.4-8.2 [facility] Urea nitrogen [Mass/Vol]Orde red By: Ceci Martinez on 04-18-2024 Serum or plasma urea nitrogen measurement (mass/volume) 10 mg/dL 10-13 [facility] White blood cell (WBC) count Ordered By: Ceci Martinez on 04-18-2024 WBC (Bld) [#/Vol] 8.3 10*3/uL 4.4-11.0 [facility] White blood cell (WBC) count 8.3 K/mm3 4.4-11.0 [facility] Gastroenterology Visit Repor ton 04-05-2024 Gastroenterology Visit Report Normal [facility] Cardiology Visit Reporton Cardiology Visit Report Normal [facility] Urine Cultureon 03-04-2024 [facility] Culture exhibits no growth. Normal [facility] Comment on above: Performed By: #### M 100.2200 ####[facility] [address] [place], [address] Urine cultureOrdered By: Yulissa Branch on 03-03-2024 Bacteria identified Cx Nom (U) Culture exhibits no growth. [facility] Office Visit Reporton 2023 Office Visit Report Normal [facility] EXTRA MICROon 01-18-2024 [facility] URINALYSIS REFLEX TO CULTURE PERFORMABLEOrdered By: Xenia Drake on 01-17-2024 [facility] LM Ql (Urine sed) PRESENT Abnormal ABSENT [facility] Calcium Oxalate Crystals PRESENT U [facility] Color (U) Yellow Yellow [facility] Epithelial cells.squamous LM Ql (Urine sed) 3-5/hpf = 1+ 0-2/hpf, 3-5/hpf = 1+ [facility] Glucose Test strip (U) [Mass/Vol] [facility] Interpretation and review of laboratory results Abnormal [facility] Ketones (U) [Mass/Vol] Negative Negative OS [facility] Leukocyte esterase Test strip Ql (U) [facility] Nitrite Ql (U) [facility] pH (U) 6.5 [pH] 5.0 - 7.0 [facility] Protein (U) [Mass/Vol] Negative Negative [facility] RBC (U) [#/Vol] [facility] RBC LM.HPF (Urine sed) [#/Area] 0-2 [facility] Specific gravity (U) [Rel density] 1.018 1.001 - 1.035 [facility] Urobilinogen (U) [Mass/Vol] 0.2 E.U./dL 0.2 E.U/dL, 1.0 E.U/dL [facility] WBC LM.HPF (Urine sed) [#/Area] 0 - 5 [facility] Yeast/Fungi PRESENT Abnormal ABSENT [facility] URINALYSIS REFLEX TO CULTURE PERFORMABLEon 01-17-2024 Appearance (U) Clear Normal Clear [facility] Comment on above: Performed By: #### U [id number] #### [facility] (DEFAULT) [address] [place] [id number] Bacteria PRESENT Abnormal ABSENT [facility] Comment on above: Performed By: #### U [id number] #### [facility] (DEFAULT) [address] [place] [address] Blood Urine Negative Normal Negative [facility] Comment on above: Performed By: #### U [id number] #### [facility] (DEFAULT) [address] [place] [address] Calcium Oxalate Crystals PRESENT Normal [facility] Comment on above: Performed By: #### U [id number] #### U [facility] (DEFAULT) [address] [place] [address] Color (U) Yellow Normal Yellow [facility] Comment on above: Performed By: #### U [id number] #### U [facility] (DEFAULT) [address] [place] [address] Glucose Ql (U) Negative Normal Negative [facility] Comment on above: Performed By: #### U [id number] #### U [facility] (DEFAULT) [address] [place] [address] Ketones Ql (U) Negative Normal Negative [facility] Comment on above: Performed By: #### U [id number] #### U [facility] (DEFAULT) [address] [place] [address] Leukocyte esterase Test strip Ql (U) Negative Normal Negative [facility] Comment on above: Performed By: #### U [id number] #### U [facility] (DEFAULT) [address] [place] [address] Nitrites Urine Negative Normal Negative [facility] Comment on above: Performed By: #### U [id number] #### U [facility] (DEFAULT) [address] [place] [address] pH (U) 6.5 [pH] Normal 5.0-7.[address] [facility] Comment on above: Performed By: #### U [id number] #### U [facility] (DEFAULT) [address] [place] [address] Protein Urine Negative Normal Negative [facility] Comment on above: Performed By: #### U [id number] #### U [facility] (DEFAULT) [address] [place] [address] RBC Urine 0-2 Normal 0-[address] [facility] Comment on above: Performed By: #### U [id number] #### U [facility] (DEFAULT) [address] [address] Specific [place] Urine 1.018 Normal 1.001-1.035 O [facility] Comment on above: Performed By: #### U [id number] #### U [facility] (DEFAULT) [address] [address] Squamous/Epithelial Cells 3-5/hpf = 1+ Normal 0-2/hpf, 3-5/hpf = 1+ [facility] Comment on above: Performed By: #### U [id number] #### U [facility] (DEFAULT) [address] [address] Urobilinogen Urine 0.2 E.U./dL Normal 0.2 E.U/d L, 1.0 E.U/dL [facility] Comment on above: Performed By: #### U [id number] #### U [facility] (DEFAULT) [address] [address] WBC Urine 0 - 5 Normal 0 - [address] [facility] Comment on above: Performed By: #### U [id number] #### U [facility] (DEFAULT) [address] [address] Yeast/Fungi PRESENT Abnormal ABSENT [facility] Comment on above: Performed By: #### U [id number] #### U [facility] (DEFAULT) [address] [address] Hepatitis Panel Acuteon 12-27 COMMENT Comment Normal . [facility] Comment on above: Result Comment: Not infected with HCV unless early or acute infection issuspected (which may be delayed in an immunocompromisedindividual), or other evidence exists to indicate HCVinfection.Performed at: - [facility] [id number] Director: El Case PhD, Phone: [phone] Performed By: #### L 3000.0375, L3400.8000 ####[facility] [address] [place], [address] HEP B CORE,IgM Negative Normal Negative [facility] Comment on above: Performed By: #### L 3000.0375, L3400.8000 ####[facility] [address] [place], [address] HEP B SURF AG Negative Normal Negative [facility] Comment on above: Performed By: #### L 3000.0375, L3400.8000 ####[facility] [address] [place], [address] HEP C VIRUS AB Non-Reactive Normal Non Reactive [facility] Comment on above: Performed By: #### L 3000.0375, L3400.8000 ####[facility] [address] [place], [address] HEPATITIS A-IgM Negative Normal Negative [facility] Comment on above: Result Comment: A ne gative anti-HAV IgM result suggests no recent orcurrent HAV infection. Performed By: #### L 3000.0375, L3400.8000 ####[facility] [address] [place], [address] Quantiferon TB-Gold+on 01-14 QFT MITOGEN CORETTA > 10.00 Normal . [facility] Comment on above: Performed By: #### L 3000.0375, L3400.8000 ####[facility] [address] [place], [address] QFT NIL VALUE 0.01 IU/mL Normal . [facility] Comment on above: Performed By: #### L 3000.0375, L3400.8000 ####[facility] [address] [place], [address] QFT TB GOLD+ Comment Normal . [facility] Comment on above: Result Comment: David tiFERON-TB Gold Plus is a qualitative indirect test forM tuberculosis infection (including disease) and isintended for use in conjunction with risk assessment,radiography, and other medical and diagnostic evaluations.The QuantiFERON-TB Gold Plus result is determined bysubtracting the Nil value from either TB antigen (Ag)value. The Mitogen tube serves as a control for the test. Performed By: #### L 3000.0375, L3400.8000 ####[facility] [address] [place], [address] QFT TB POS CRIT Negative Normal Negative [facility] Comment on above: Result Comment: No r esponse to M tuberculosis antigens detected.Infection with M tuberculosis is unlikely, but high riskindividuals should be considered for additional testing(ATS/IDSA/CDC Clinical Practice Guidelines, 2017). Thereference range is an Antigen minus Nil result of <0.35IU/mL.The specimen received for QuantiFERON testing was incubatedby the ordering institution. Specific procedures outlinedin our Directory of Services and in the package insert forthe QuantiFERON Gold (In Tube) test must be followed toenable for proper stimulation of cells for the productionof interferon gamma. Chemiluminescence immunoassaymethodology Performed By: #### L 3000.0375, L3400.8000 ####[facility] [address] [place], [address] QFT TB1+ AG CORETTA 0.01 IU/mL Normal . [facility] Comment on above: Performed By: #### L 3000.0375, L3400.8000 ####[facility] [address] [place], [address] QFT TB2+ AG CORETTA 0.02 IU/mL Normal . [facility] Comment on above: Performed By: #### L 3000.0375, L3400.8000 ####[facility] [address] [place], [address] Gastroenterology Visit Repor ton 01-13-2024 Gastroenterology Visit Report Normal [facility] Enterography Abd/Roberto 12-30 Enterography Abd/Pel Normal [facility] Cardiology Visit Reporton Cardiology Visit Report Normal [facility] Abdomen/Pelvis W IV Cont ONL Yon 12-17-2023 Abdomen/Pelvis W IV Cont ONLY Normal [facility] Basic Metabolic Profile (BMP )on 12-17-2023 BUN/CRE 17.6 RATIO Normal 01-15 [facility] Comment on above: Performed By: #### L 100.0100, L500.2500, L501.2450, L503.6005, L500.3400 ####[facility] [address] [place], [address] CA,Total 9.0 mg/dL Normal 8.5-10.1 [facility] Comment on above: Performed By: #### L 100.0100, L500.2500, L501.2450, L503.6005, L500.3400 ####[facility] [address] [place], [address] Chloride [Moles/Vol] 106 mmol/L Normal 98-107 [facility] Comment on above: Performed By: #### L 100.0100, L500.2500, L501.2450, L503.6005, L500.3400 ####[facility] [address] [place], [address] CO2 [Moles/Vol] 26.0 mmol/L Normal 21.0-32.0 [facility] Comment on above: Performed By: #### L 100.0100, L500.2500, L501.2450, L503.6005, L500.3400 ####[facility] [address] [place], [address] Creatinine [Mass/Vol] 0.79 mg/dL Normal 0.55-1.02 [facility] Comment on above: Result Comment: The validity of the calculated GFR GFRAA in patients over70 years has not been determined. Clinical correlation isessential. Performed By: #### L 100.0100, L500.2500, L501.2450, L503.6005, L500.3400 ####[facility] [address] [place], [address] ECRCL 99.59 ml/min Normal [facility] Comment on above: Performed By: #### L 100.0100, L500.2500, L501.2450, L503.6005, L500.3400 ####[facility] [address] [place], [address] EST GFR - AA 103 mL/min Normal >60 [facility] Comment on above: Result Comment: Afri can Lao GFR Calc Performed By: #### L 100.0100, L500.2500, L501.2450, L503.6005, L500.3400 ####[facility] [address] [place], [address] GAP 5 Normal 5-15 [facility] Comment on above: Performed By: #### L 100.0100, L500.2500, L501.2450, L503.6005, L500.3400 ####[facility] [address] [place], [address] GFR/1.73 sq M.predicted among non-blacks MDRD (S/P/Bld) [Vol rate/Area] 85 mL/min/{1.73_m2} Normal >60 [facility] Comment on above: Result Comment: Non- GFR Calc Performed By: #### L 100.0100, L500.2500, L501.2450, L503.6005, L500.3400 ####[facility] [address] [place], [address] Glucose [Mass/Vol] 104 mg/dL Normal 74-106 [facility] Comment on above: Result Comment: Fast ing Glucose result from 100 to 125 mg/dLsuggests IMPAIRED HOMEOSTASIS per A.D.A. criteria. Performed By: #### L 100.0100, L500.2500, L501.2450, L503.6005, L500.3400 ####[facility] [address] [place], [address] Potassium [Moles/Vol] 3.4 mmol/L Low 3.5-5.1 [facility] Comment on above: Performed By: #### L 100.0100, L500.2500, L501.2450, L503.6005, L500.3400 ####[facility] [address] [place], [address] Sodium [Moles/Vol] 137 mmol/L Normal 136-145 [facility] Comment on above: Performed By: #### L 100.0100, L500.2500, L501.2450, L503.6005, L500.3400 ####[facility] [address] [place], [address] Urea nitrogen [Mass/Vol] 14 mg/dL Normal 7-18 [facility] Comment on above: Performed By: #### L 100.0100, L500.2500, L501.2450, L503.6005, L500.3400 ####[facility] [address] [place], [address] CBC W/Diff, Automatedon 09-2 0-4 Absolute Lymph 4.49 X10 3/uL Normal 0.83-4.51 [facility] Comment on above: Performed By: #### L 100.0100, L500.2500, L501.2450, L503.6005, L500.3400 ####[facility] [address] [place], [address] Absolute Neut 9.7 X10 3/uL High 2.0-7.7 [facility] Comment on above: Performed By: #### L 100.0100, L500.2500, L501.2450, L503.6005, L500.3400 ####[facility] [address] [place], [address] Basophils/100 WBC (Bld) 0.2 % Normal 0-1 [facility] Comment on above: Performed By: #### L 100.0100, L500.2500, L501.2450, L503.6005, L500.3400 ####[facility] [address] [place], [address] Eosinophils/100 WBC (Bld) 0.2 % Normal 0-5 [facility] Comment on above: Performed By: #### L 100.0100, L500.2500, L501.2450, L503.6005, L500.3400 ####[facility] [address] [place], [address] Erythrocyte distribution width (RBC) [Ratio] 13.1 % Normal 11.6-14.6 [facility] Comment on above: Performed By: #### L 100.0100, L500.2500, L501.2450, L503.6005, L500.3400 ####[facility] [address] [place], [address] Hematocrit (Bld) [Volume fraction] 41.2 % Normal 37-47 [facility] Comment on above: Performed By: #### L 100.0100, L500.2500, L501.2450, L503.6005, L500.3400 ####[facility] [address] [place], [address] Hemoglobin (Bld) [Mass/Vol] 13.3 g/dL Normal 12.0-15.0 [facility] Comment on above: Performed By: #### L 100.0100, L500.2500, L501.2450, L503.6005, L500.3400 ####[facility] [address] [place], [address] IG% 0.500 Normal 0.0-0.9 [facility] Comment on above: Result Comment: IG% - Immature Granulocytes (promyelocytes, myelocytes andmetamyelocytes) > 1% indicates that a LEFT SHIFT is Present. Performed By: #### L 100.0100, L500.2500, L501.2450, L503.6005, L500.3400 ####[facility] [address] [place], [address] Lymphocytes/100 WBC (Bld) 29.6 % Normal 19-41 [facility] Comment on above: Performed By: #### L 100.0100, L500.2500, L501.2450, L503.6005, L500.3400 ####[facility] [address] [place], [address] MCH (RBC) [Entitic mass] 27.5 pg Normal 27.0-32.0 [facility] Comment on above: Performed By: #### L 100.0100, L500.2500, L501.2450, L503.6005, L500.3400 ####[facility] [address] [place], [address] MCHC (RBC) [Mass/Vol] 32.3 g/dL Normal 32-36 [facility] Comment on above: Performed By: #### L 100.0100, L500.2500, L501.2450, L503.6005, L500.3400 ####[facility] [address] [place], [address] MCV (RBC) [Entitic vol] 85.3 fL Normal 81-99 [facility] Comment on above: Performed By: #### L 100.0100, L500.2500, L501.2450, L503.6005, L500.3400 ####[facility] [address] [place], [address] Monocytes/100 WBC (Bld) 5.3 % Normal 0-10 [facility] Comment on above: Performed By: #### L 100.0100, L500.2500, L501.2450, L503.6005, L500.3400 ####[facility] [address] [place], [address] Neutrophils/100 WBC (Bld) 64.2 % Normal 47-70 [facility] Comment on above: Performed By: #### L 100.0100, L500.2500, L501.2450, L503.6005, L500.3400 ####[facility] [address] [place], [address] Nucleated RBC (Bld) [#/Vol] 0 10*3/uL Normal 0-5 [facility] Comment on above: Performed By: #### L 100.0100, L500.2500, L501.2450, L503.6005, L500.3400 ####[facility] [address] [place], [address] Platelet mean volume (Bld) [Entitic vol] 9.1 fL Normal 6.2-12.0 [facility] Comment on above: Performed By: #### L 100.0100, L500.2500, L501.2450, L503.6005, L500.3400 ####[facility] [address] [place], [address] Platelets (Bld) [#/Vol] 305 10*3/uL Normal 150-450 [facility] Comment on above: Performed By: #### L 100.0100, L500.2500, L501.2450, L503.6005, L500.3400 ####[facility] [address] [place], [address] RBC (Bld) [#/Vol] 4.83 10*6/uL Normal 4.2-5.4 [facility] Comment on above: Performed By: #### L 100.0100, L500.2500, L501.2450, L503.6005, L500.3400 ####[facility] [address] [place], [address] RDW SD 40.5 fl Normal 35.1-43.9 [facility] Comment on above: Performed By: #### L 100.0100, L500.2500, L501.2450, L503.6005, L500.3400 ####[facility] [address] [place], [address] WBC (Bld) [#/Vol] 15.2 10*3/uL High 4.4-11.0 [facility] Comment on above: Performed By: #### L 100.0100, L500.2500, L501.2450, L503.6005, L500.3400 ####[facility] [address] [place], [address] Emergency Department Summary on 12-17-2023 Emergency Department Summary Normal [facility] Lactic Acidon 12-17-2023 Lactate [Moles/Vol] 1.5 mmol/L Normal 0.4-1.9 [facility] Comment on above: Order Comment: Y Performed By: #### L 100.0100, L500.2500, L501.2450, L503.6005, L500.3400 ####[facility] [address] [place], [address] Lipaseon 12-17-2023 Lipase [Catalytic activity/Vol] 46 U/L Normal 13-75 [facility] Comment on above: Result Comment: Haley elliott note:LIPASE revised reference range effective 22.New Lipase methodology. Expected to produce lower valuesthan the previous assay method.NEW Reference Range: 13 - 75 U/L Performed By: #### L 100.0100, L500.2500, L501.2450, L503.6005, L500.3400 ####[facility] [address] [place], [address] Liver Profileon 12-17-2023 Albumin [Mass/Vol] 3.5 g/dL Normal 3.2-5.0 [facility] Comment on above: Performed By: #### L 100.0100, L500.2500, L501.2450, L503.6005, L500.3400 ####[facility] [address] [place], [address] ALK P 70 U/L Normal 45-117 [facility] Comment on above: Performed By: #### L 100.0100, L500.2500, L501.2450, L503.6005, L500.3400 ####[facility] [address] [place], [address] ALT [Catalytic activity/Vol] 27 U/L Normal 13-56 [facility] Comment on above: Performed By: #### L 100.0100, L500.2500, L501.2450, L503.6005, L500.3400 ####[facility] [address] [place], [address] AST [Catalytic activity/Vol] 10 U/L Low 15-37 [facility] Comment on above: Performed By: #### L 100.0100, L500.2500, L501.2450, L503.6005, L500.3400 ####[facility] [address] [place], [address] Bilirubin [Mass/Vol] 0.20 mg/dL Normal 0.20-1.00 [facility] Comment on above: Result Comment: For patients on eltrombopag therapy, use of Dimension [place] TBIL is not recommended. Performed By: #### L 100.0100, L500.2500, L501.2450, L503.6005, L500.3400 ####[facility] [address] [place], [address] Bilirubin.direct [Mass/Vol] 0.10 mg/dL Normal 0.00-0.30 [facility] Comment on above: Performed By: #### L 100.0100, L500.2500, L501.2450, L503.6005, L500.3400 ####[facility] [address] [place], [address] Globulin (S) [Mass/Vol] 3.9 g/dL Normal 2.2-4.2 [facility] Comment on above: Performed By: #### L 100.0100, L500.2500, L501.2450, L503.6005, L500.3400 ####[facility] [address] [place], [address] T PROT 7.4 g/dL Normal 6.4-8.2 [facility] Comment on above: Performed By: #### L 100.0100, L500.2500, L501.2450, L503.6005, L500.3400 ####[facility] [address] [place], [address] Urinalysis, Completeon 12-16 EPI,SQUAMOUS 0-5 SEEN Normal 5-10 [facility] Comment on above: Order Comment: CLEAN CATCH Performed By: #### L 400.0001 ####[facility] [address] [place], [address] BACTERIA 0 SEEN Normal None Seen [facility] Comment on above: Order Comment: CLEAN CATCH Performed By: #### L 400.0001 ####[facility] [address] [place], [address] Mucus Ql (Urine sed) 0 SEEN Normal [facility] Comment on above: Order Comment: CLEAN CATCH Performed By: #### L 400.0001 ####[facility] [address] [place], [address] RBC 0 SEEN Normal 0-5 [facility] Comment on above: Order Comment: CLEAN CATCH Performed By: #### L 400.0001 ####[facility] [address] [place], [address] WBC 0 SEEN Normal 0-5 [facility] Comment on above: Order Comment: CLEAN CATCH Performed By: #### L 400.0001 ####[facility] [address] [place], [address] Calculi, Urinary w / Photoon 12-06-2023 . Comment Normal . [facility] Comment on above: Order Comment: PT CO LLECTED IT ON October AT 1500 Result Comment: Perc entage (Represents the % composition) Performed By: #### L 3650.0100 ####[facility] [address] [place], [address] AMM ACID URATE TNP Normal . [facility] Comment on above: Order Comment: PT CO LLECTED IT ON October AT 1500 Performed By: #### L 3650.0100 ####[facility] [address] [place], [address] CA BILIRUBINATE TNP Normal . [facility] Comment on above: Order Comment: PT CO LLECTED IT ON October AT 1500 Performed By: #### L 3650.0100 ####[facility] [address] [place], [address] CA CARBONATE TNP Normal . [facility] Comment on above: Order Comment: PT CO LLECTED IT ON October AT 1500 Performed By: #### L 3650.0100 ####[facility] [address] [place], [address] CA HYDROG PHOS TNP Normal . [facility] Comment on above: Order Comment: PT CO LLECTED IT ON October AT 1500 Performed By: #### L 3650.0100 ####[facility] [address] [place], [address] CA OXAL DIHYDR TNP Normal . [facility] Comment on above: Order Comment: PT CO LLECTED IT ON October AT 1500 Performed By: #### L 3650.0100 ####[facility] [address] [place], [address] CA OXAL MONOHYD 100 Normal . [facility] Comment on above: Order Comment: PT CO LLECTED IT ON October AT 1500 Performed By: #### L 3650.0100 ####[facility] [address], [address] CA PHOSPHATE TNP Normal . [facility] Comment on above: Order Comment: PT CO LLECTED IT ON October AT 1500 Performed By: #### L 3650.0100 ####[facility] [address] [place], [address] CELL MATERIAL TNP Normal . [facility] Comment on above: Order Comment: PT CO LLECTED IT ON October AT 1500 Performed By: #### L 3650.0100 ####[facility] [address] [place], [address] CHOLESTEROL TNP Normal . [facility] Comment on above: Order Comment: PT CO LLECTED IT ON October AT 1500 Performed By: #### L 3650.0100 ####[facility] [facility] [address] [place], [address] Color (U) Brown Normal . [facility] Comment on above: Order Comment: PT CO LLECTED IT ON October AT 1500 Performed By: #### L 3650.0100 ####[facility] [address] [place], [address] COMMENT TNP Normal . [facility] Comment on above: Order Comment: PT CO LLECTED IT ON October AT 1500 Performed By: #### L 3650.0100 ####[facility] [address] [place], [address] COMMENT Comment Normal . [facility] Comment on above: Order Comment: PT CO LLECTED IT ON October AT 1500 Result Comment: Stanley galvin questions regarding Calculi Analysis [facility] at: [phone]. Performed By: #### L 3650.0100 ####[facility] [address] [place], [address] Result Comment: Calc cedric report will follow via computer, mail or courierdelivery. CYSTINE TNP Normal . [facility] Comment on above: Order Comment: PT CO LLECTED IT ON October AT 1500 Performed By: #### L 3650.0100 ####[facility] [address] [place], [address] Disclaimer Comment Normal . [facility] Comment on above: Order Comment: PT CO LLECTED IT ON October AT 1500 Result Comment: This test was developed and its performance characteristicsdetermined by [employer]. It has not been cleared or approvedby the Food and Drug Administration.Performed at: [address] [id number] Director: Lynne Boyle PhD, Phone: [phone] Performed By: #### L 0.0100 ####[facility] [address] [place], [address] DRIED BLOOD TNP Normal . [facility] Comment on above: Order Comment: PT CO LLECTED IT ON October AT 1500 Performed By: #### L 0.0100 ####[facility] [address] [place], [address] MAG STEPHAN PHOS TNP Normal . [facility] Comment on above: Order Comment: PT CO LLECTED IT ON October AT 1500 Performed By: #### L 3650.0100 ####[facility] [address] [place], [address] NA ACID URATE TNP Normal . [facility] Comment on above: Order Comment: PT CO LLECTED IT ON October AT 1500 Performed By: #### L 3650.0100 ####[facility] [address] [place], [address] NEWBERYITE TNP Normal . [facility] Comment on above: Order Comment: PT CO LLECTED IT ON October AT 1500 Performed By: #### L 3650.0100 ####[facility] [address] [place], [address] PHOTO Comment Normal . [facility] Comment on above: Order Comment: PT CO LLECTED IT ON October AT 1500 Result Comment: Tayo montanez will follow under a separate cover Performed By: #### L 3650.0100 ####[facility] [address] [place], [address] SIZE 3x5 Normal . [facility] Comment on above: Order Comment: PT CO LLECTED IT ON October AT 1500 Result Comment: Sing le piece received. Performed By: #### L 0.0100 ####[facility] [address] [place], [address] SOURCE Kidney Normal . [facility] Comment on above: Order Comment: PT CO LLECTED IT ON October AT 1500 Performed By: #### L 3650.0100 ####[facility] [address] [place], [address] TRIAMTERENE TNP Normal . [facility] Comment on above: Order Comment: PT CO LLECTED IT ON October AT 1500 Performed By: #### L 3650.0100 ####[facility] [address] [place], [address] URIC ACID TNP Normal . [facility] Comment on above: Order Comment: PT CO LLECTED IT ON October AT 1500 Performed By: #### L 3650.0100 ####[facility] [address] [place], [address] URIC ACID DIHYD TNP Normal . [facility] Comment on above: Order Comment: PT CO LLECTED IT ON October AT 1500 Performed By: #### L 3650.0100 ####[facility] [address] [place], [address] WEIGHT 36 mg Normal . [facility] Comment on above: Order Comment: PT CO LLECTED IT ON October AT 1500 Performed By: #### L 3650.0100 ####[facility] [address] [place], [address] Chest 1 Viewon 11-26-2023 Chest 1 View Normal [facility] Office Visit Reporton 2023 Office Visit Report Normal [facility] L2100.0000on 11-22-2023 ACCA 54 units Normal 0-90 [facility] Comment on above: Result Comment: Nega tive: <80 Equivocal: 80-90 Positive: >90 Performed By: #### L 2100.0000 ####[facility] [address] [place], [address] ALCA 27 units Normal 0-60 [facility] Comment on above: Result Comment: Nega tive:<55 Equivocal: 55-60 Positive: >60 Performed By: #### L 2100.0000 ####[facility] [address] [place], [address] AMCA 165 units High 0-100 [facility] Comment on above: Result Comment: Nega tive: <90 Equivocal: 90-100 Positive: >100 This test was developed and its performance characteristics determined by [employer]. It has not been cleared or approved by the Food and Drug Administration. The FDA has determined that such clearance or approval is not necessary. Performed By: #### L 2100.0000 ####[facility] [address] [place], [address] Atypical pANCA Negative Normal Negative [facility] Comment on above: Performed By: #### L 2100.0000 ####[facility] [address] [place], [place], [address] COMMENT Comment Abnormal . [facility] Comment on above: Result Comment: Sugg estive of Crohn's Disease. Pattern is not conclusivefor disease behavior risk stratification.Performed at: - [address] [id number] Director: Miguel Fay MD, Phone: [phone] Performed By: #### L 2100.0000 ####[facility] [address] [place], [address] Jesus 33 units Normal 0-50 [facility] Comment on above: Result Comment: Nega tive: <45 Equivocal: 45-50 Positive: >50 Performed By: #### L 2100.0000 ####[facility] [address] [place], [address] Gastroenterology Visit Repor ton 11-19-2023 Gastroenterology Visit Report Normal [facility] Surgery Specimen Level Ion 0 11-19-2023 Surgery Specimen Level I Normal [facility] Comment on above: Performed By: #### P TENISHA ####[facility] [address] [place], [address] M7400.3302on 11-17-2023 M7400.3302 Normal [facility] Comment on above: Performed By: #### M 600.5000, L7000.0700, M100.637, M7400.3302, M100.0605 ####[facility] [address] [place], [address] Ova and Parasites 8623on OP Normal [facility] Comment on above: Performed By: #### M 600.5000, L7000.0700, M100.637, M7400.3302, M100.0605 ####[facility] [address] [place], [address] Calprotectin, Stoolon [address] 34 ug/g Normal 0-120 [facility] Comment on above: Result Comment: Conc entration Interpretation Follow-Up< 5 - 50 ug/g Normal None>50 -120 ug/g Borderline Re-evaluate in 4-6 weeks >120 ug/g Abnormal Repeat as clinically indicatedPerformed at: [facility] [address] [place], [place] [id number] Director: Miguel Fay MD, Phone: [phone] Performed By: #### M 600.5000, L7000.0700, M100.637, M7400.3302, M100.0605 ####[facility] [address] [place], [address] ENTERIC PATHOGEN PANEL STOOL on 11-08-2023 EP PANEL Normal [facility] Comment on above: Performed By: #### M 600.5000, L7000.0700, M100.637, M7400.3302, M100.0605 ####[facility] [address] [place], [address] HIP, UNI W/ Pelvis 2-3 Views on 11-08-2023 HIP, UNI W/ Pelvis 2-3 Views Normal [facility] Stool Lactoferrin/WBCon 10-27 WBCST Normal Reference Ran ge = Negative Fecal WBC Lactoferrin Negative: No Fecal WBC Lactoferrin present Normal [facility] Comment on above: Performed By: #### M 600.5000, L7000.0700, M100.637, M7400.3302, M100.0605 ####[facility] [address] [place], [place], [address] .Auto Diffon 11-03-2023 Basophil, Absolute 0.0 10 3/mcL Normal 0.0-0.2 [facility] ([place]) Comment on above: Performed By: #### M DW, BMP, GFR, CBC, ADIFF, ANEU #### Na [address] [address] Basophils/100 WBC (Bld) 0.3 % Normal 0.0-2.5 [facility] ([place]) Comment on above: Performed By: #### M DW, BMP, GFR, CBC, ADIFF, ANEU #### [address] [address] Eosinophil, Absolute 0.1 10 3/mcL Normal 0.0-0.4 [facility] ([place] Comment on above: Performed By: #### M DW, BMP, GFR, CBC, ADIFF, ANEU #### [address] [address] Eosinophils/100 WBC (Bld) 1.5 % Normal 0.0-7.0 [facility] ([place] Comment on above: Performed By: #### M DW, BMP, GFR, CBC, ADIFF, ANEU #### [address] [address] Lymphocyte, Absolute 3.4 10 3/mcL Normal 0.8-3.9 [facility] ([place] Comment on above: Performed By: #### M DW, BMP, GFR, CBC, ADIFF, ANEU #### [address] [address] Lymphocytes/100 WBC (Bld) 37.8 % Normal 10.0-50.0 [facility] ([place] Comment on above: Performed By: #### M DW, BMP, GFR, CBC, ADIFF, ANEU #### [address] [address] Monocyte, Absolute 0.5 10 3/mcL Normal 0.2-1.0 [facility] ([place]) Comment on above: Performed By: #### M DW, BMP, GFR, CBC, ADIFF, ANEU #### [address] [address] Monocytes/100 WBC (Bld) 5.2 % Normal 1.7-13.0 [facility] ([place] Comment on above: Performed By: #### M DW, BMP, GFR, CBC, ADIFF, ANEU #### [address] [address] Neutrophils/100 WBC (Bld) 55.2 % Normal 37.0-80.0 [facility] ([place] Comment on above: Performed By: #### M DW, BMP, GFR, CBC, ADIFF, ANEU #### [address] [address] .GFRon 11-03-2023 GFR Non- 76 ml/min/1.73sqm Normal [facility] ([place]) Comment on above: Result Comment: GFR Population mean for , [...] 15 mL/min/1.73 square meters Performed By: #### M DW, BMP, GFR, CBC, ADIFF, ANEU #### [address] [address] GFR 92 ml/min/1.73sqm Normal [facility] ([place] Comment on above: Result Comment: GFR Population mean for , [...] 15 mL/min/1.73 square meters Performed By: #### M DW, BMP, GFR, CBC, ADIFF, ANEU #### [address] [address] .MDWon 11-03-2023 Monocyte Distribution Width 17.59 Normal 0.00-20.00 [facility] ([place]) Comment on above: Result Comment: For ED adult patients suspected of sepsis, MDW<=20.0 does not rule out sepsis or risk of sepsis Performed By: #### M DW, BMP, GFR, CBC, ADIFF, ANEU #### [address] [address] .NEUABSon 11-03-2023 Neutrophil, Absolute 4.9 10 3/mcL Normal 2.9-6.2 [facility] ([place]) Comment on above: Performed By: #### M DW, BMP, GFR, CBC, ADIFF, ANEU #### [address] [address] BMPon 11-03-2023 BUN/Creatinine Ratio 7 ratio Normal 7-27 [facility] ([place]) Comment on above: Performed By: #### M DW, BMP, GFR, CBC, ADIFF, ANEU #### [address] [address] Calcium [Mass/Vol] 9.0 mg/dL Normal 8.4-10.2 [facility] ([place]) Comment on above: Performed By: #### M DW, BMP, GFR, CBC, ADIFF, ANEU #### [address] [address] Chloride [Moles/Vol] 103 mmol/L Normal 98-107 [facility] ([place]) Comment on above: Performed By: #### M DW, BMP, GFR, CBC, ADIFF, ANEU #### [address] [address] CO2 [Moles/Vol] 29 mmol/L Normal 22-29 [facility] ([place]) Comment on above: Performed By: #### M DW, BMP, GFR, CBC, ADIFF, ANEU #### [address] [address] Creatinine [Mass/Vol] 0.83 mg/dL Normal 0.55-1.02 [facility] ([place]) Comment on above: Performed By: #### M DW, BMP, GFR, CBC, ADIFF, ANEU #### [address] [address] Electrolyte Balance 9.0 mEq/L Normal 4.0-15.0 [facility] ([place] Comment on above: Performed By: #### M DW, BMP, GFR, CBC, ADIFF, ANEU #### [address] [address] Glucose [Mass/Vol] 90 mg/dL Normal 70-105 [facility] ([place]) Comment on above: Performed By: #### M DW, BMP, GFR, CBC, ADIFF, ANEU #### [address] [address] Potassium [Moles/Vol] 3.8 mmol/L Normal 3.5-5.1 [facility] ([place]) Comment on above: Performed By: #### M DW, BMP, GFR, CBC, ADIFF, ANEU #### [address] [address] Sodium [Moles/Vol] 141 mmol/L Normal 136-145 [facility] ([place]) Comment on above: Performed By: #### M DW, BMP, GFR, CBC, ADIFF, ANEU #### [address] [address] Urea nitrogen [Mass/Vol] 6 mg/dL Low 7-18 [facility] ([place] Comment on above: Performed By: #### M DW, BMP, GFR, CBC, ADIFF, ANEU #### [address] [address] CBCon 11-03-2023 Erythrocyte distribution width (RBC) [Ratio] 13.2 % Normal 11.5-14.5 [facility] ([place] Comment on above: Performed By: #### M DW, BMP, GFR, CBC, ADIFF, ANEU #### [address] [address] Hematocrit (Bld) [Volume fraction] 41.0 % Normal 37.0-47.0 [facility] ([place] Comment on above: Performed By: #### M DW, BMP, GFR, CBC, ADIFF, ANEU #### [address] [address] Hgb 13.7 G/dL Normal 12.0-16.0 [facility] ([place] Comment on above: Performed By: #### M DW, BMP, GFR, CBC, ADIFF, ANEU #### [address] [address] MCH (RBC) [Entitic mass] 28.7 pg Normal 27.0-31.2 [facility] ([place] Comment on above: Performed By: #### M DW, BMP, GFR, CBC, ADIFF, ANEU #### [address] [address] MCHC 33.5 G/dL Normal 33.0-37.0 [facility] ([place] Comment on above: Performed By: #### M DW, BMP, GFR, CBC, ADIFF, ANEU #### [address] [address] MCV (RBC) [Entitic vol] 85.7 fL Normal 80.0-94.0 [facility] ([place] Comment on above: Performed By: #### M DW, BMP, GFR, CBC, ADIFF, ANEU #### [address] [address] Platelet 329 10 3/mcL Normal 130-400 [facility] ([place]) Comment on above: Performed By: #### M DW, BMP, GFR, CBC, ADIFF, ANEU #### [address] [address] Platelet mean volume (Bld) [Entitic vol] 6.7 fL Low 7.4-10.4 [facility] ([place]) Comment on above: Performed By: #### M DW, BMP, GFR, CBC, ADIFF, ANEU #### [address] [address] RBC 4.78 10 6/mcL Normal 4.20-5.40 [facility] ([place]) Comment on above: Performed By: #### M DW, BMP, GFR, CBC, ADIFF, ANEU #### [facility] [address] [place], [place] [address] WBC 9.0 10 3/mcL Normal 4.6-10.8 [facility]) Comment on above: Performed By: #### M DW, BMP, GFR, CBC, ADIFF, ANEU #### [facility] [address] [place], [place] [address] CT ABDOMEN/PELVIS W/O CONTRA STon 11-03-2023 CT ABDOMEN/PELVIS W/O CONTRAST ORIGINAL EXAMINATION: CT OF THE ABDOMEN AND PELVIS WITHOUT CONTRAST 11/03/2023 2:22 pm TECHNIQUE: CT of the abdomen and pelvis was performed without the administration of intravenous contrast. Multiplanar reformatted images are provided for review. Automated exposure control, iterative reconstruction, and/or weight based adjustment of the mA/kV was utilized to reduce the radiation dose to as low as reasonably achievable. COMPARISON: 12/01/2022 HISTORY: ORDERING SYSTEM PROVIDED HISTORY: Reason for Exam: Pt c/o bilateral flank pain today. Reports passing a kidney stone 4 days ago. Nausea. flank and abdominal FINDINGS: Lung bases are unremarkable. No focal hepatic or splenic lesion. The adrenals and pancreas are unremarkable. Prior cholecystectomy. There is bilateral nonobstructive nephrolithiasis which is grossly unchanged from prior. There is no evidence of obstructive uropathy at this time. The bladder is nondistended limiting evaluation. No contributory GI tract abnormality. Normal appendix. Uterus is surgically absent. The right ovary is slightly decreased in size from prior measuring 3.3 cm, previously 3.7 cm. Tiny fat containing umbilical hernia. No lymphadenopathy. 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 No additional contributory abnormality. IMPRESSION: Nonobstructive bilateral nephrolithiasis. No obstructive uropathy. I have personally reviewed the images of this examination and agree with the resident's findings and interpretations. Interpreted by: Harley Mitchell MD Preliminary Report By: Nicole Park Electronically signed By Harley Mitchell MD Dictated Date: 11/03/2023 2:30:40 PM Prelim Date: 11/03/2023 2:40:43 PM Sign Date: 11/03/2023 2:40:43 PM Ordering Provider: LUANN Villalobos [facility] ([place]) LABORATORYOrdered By: SYSTEM SYSTEM on 11-03-2023 Basophil, Absolute 0.0 103/mcL Normal 0.0 - 0.2 10^3/mcL AO Workflow SS Basophils/100 WBC (Bld) 0.3 % Normal 0.0 - 2.5 % AO Workflow SS Calcium [Mass/Vol] 9.0 mg/dL Normal 8.4 - 10. 2 mg/dL AO ADM SS Chloride [Moles/Vol] 103 mmol/L Normal 98 - 10 7 mmol/L AO ADM SS CO2 [Moles/Vol] 29 mmol/L Normal 22 - 29 mmol/L AO ADM SS Creatinine [Mass/Vol] 0.83 mg/dL Normal 0.55 - 1.02 mg/dL AO ADM SS Electrolyte Balance 9.0 mEq/L Normal 4.0 - 15 .0 mEq/L AO ADM SS Eosinophil, Absolute 0.1 103/mcL Normal 0.0 - 0 .4 10^3/mcL AO Workflow SS Eosinophils/100 WBC (Bld) 1.5 % Normal 0.0 - 7.0 % AO Workflow SS Erythrocyte distribution width (RBC) [Ratio] 13.2 % Normal 11.5 - 14.5 % AO Workflow SS GFR/1.73 sq M.predicted among blacks MDRD (S/P/Bld) [Vol rate/Area] 92 ml/min/1.73sqm Invalid Interpretation Code AO Chemistry S Comment on above: Interpretive Data: GFR Population mean for , Non- Americans Ages 20-29 = 116 mL/min/1.73 sq.m. Ages 30-39 = 107 mL/min/1.73 sq.m. Ages 40-49 = 99 mL/min/1.73 sq.m. Ages 50-59 = 93 mL/min/1.73 sq.m. Ages 60-69 = 85 mL/min/1.73 sq.m. Ages 70+ = 75 mL/min/1.73 sq.m. Chronic Kidney Disease: Less than 60 mL/min/1.73 square meters End Stage Renal Disease: Less than 15 mL/min/1.73 square meters GFR/1.73 sq M.predicted among non-blacks MDRD (S/P/Bld) [Vol rate/Area] 76 ml/min/1.73sqm Invalid Interpretation Code AO Chemistry S Comment on above: Interpretive Data: GFR Population mean for , Non- Americans Ages 20-29 = 116 mL/min/1.73 sq.m. Ages 30-39 = 107 mL/min/1.73 sq.m. Ages 40-49 = 99 mL/min/1.73 sq.m. Ages 50-59 = 93 mL/min/1.73 sq.m. Ages 60-69 = 85 mL/min/1.73 sq.m. Ages 70+ = 75 mL/min/1.73 sq.m. Chronic Kidney Disease: Less than 60 mL/min/1.73 square meters End Stage Renal Disease: Less than 15 mL/min/1.73 square meters Glucose [Mass/Vol] 90 mg/dL Normal 70 - 105 mg/dL AO ADM SS Hematocrit (Bld) [Volume fraction] 41.0 % Normal 37.0 - 47.0 % AO Workflow SS Hemoglobin (Bld) [Mass/Vol] 13.7 G/dL Normal 12.0 - 16.0 G/dL AO Workflow SS Lymphocyte, Absolute 3.4 103/mcL Normal 0.8 - 3 .9 10^3/mcL AO Workflow SS Lymphocytes/100 WBC (Bld) 37.8 % Normal 10.0 - 50.0 % AO Workflow SS MCH (RBC) [Entitic mass] 28.7 pg Normal 27.0 - 31.2 pg AO Workflow SS MCHC 33.5 G/dL Normal 33.0 - 37.0 G/dL AO Workflow SS MCV (RBC) [Entitic vol] 85.7 fL Normal 80.0 - 94.0 fL AO Workflow SS Monocyte distribution width Auto (Bld) [Entitic vol] 17.59 1 Normal 0.00 - 20.00 AO Workflow SS Comment on above: Result Comment: For ED adult patients suspected of sepsis, MDW<=20.0 does not rule out sepsis or risk of sepsis Monocyte, Absolute 0.5 103/mcL Normal 0.2 - 1.0 10^3/mcL AO Workflow SS Monocytes/100 WBC (Bld) 5.2 % Normal 1.7 - 13.0 % AO Workflow SS Neutrophil, Absolute 4.9 103/mcL Normal 2.9 - 6 .2 10^3/mcL AO Workflow SS Neutrophils/100 WBC (Bld) 55.2 % Normal 37.0 - 80.0 % AO Workflow SS Platelet mean volume (Bld) [Entitic vol] 6.7 fL Low 7.4 - 10.4 fL AO Workflow SS Platelets (Bld) [#/Vol] 329 103/mcL Normal 130 - 400 10^3/mcL AO Workflow SS Potassium [Moles/Vol] 3.8 mmol/L Normal 3.5 - 5.1 mmol/L AO ADM SS RBC (Bld) [#/Vol] 4.78 106/mcL Normal 4.20 - 5.4 0 10^6/mcL AO Workflow SS Sodium [Moles/Vol] 141 mmol/L Normal 136 - 145 mmol/L AO ADM SS Urea nitrogen [Mass/Vol] 6 mg/dL Low 7 - 18 mg/dL AO ADM SS Urea nitrogen/Creatinine [Mass ratio] 7 ratio Normal 7 - 27 ratio AO ADM SS WBC (Bld) [#/Vol] 9.0 103/mcL Normal 4.6 - 10.8 10^3/mcL AO Workflow SS LABORATORYOrdered By: Amarilys Hutchinson on 11-03-2023 Appearance (U) Clear (11/03/23 1:11 PM) Normal Clear AO Auto Urine SS Bilirubin Ql (U) Negative (11/03/23 1:11 PM) Normal Negative AO Auto Urine SS Color (U) Yellow (11/03/23 1:11 PM) Normal AO Auto Urine SS Glucose Test strip (U) [Mass/Vol] Negative Normal Negative AO Auto Urine SS HCG ( test) Ql Negative (11/03/23 1:11 PM) Normal AO Manual Urine SS Hemoglobin Auto test strip (U) [Mass/Vol] Trace *ABN* (11/03/23 1:11 PM) Invalid Interpretation Code Negative AO Auto Urine SS Ketones Ql (U) Negative Normal Negative AO Auto Ur ine SS test (u) int Not detected Invalid Interpretation Code AO Manual Urine SS UA Leuk Est Negative (11/03/23 1:11 PM) Normal Negative AO Auto Urine SS UA Nitrite Negative (11/03/23 1:11 PM) Normal Negative AO Auto Urine SS UA pH 5.5 (11/03/23 1:11 PM) Normal 5.0 - 8.0 AO Auto Urine SS UA Protein Negative Normal Negative AO Auto Urine SS UA Spec Grav 1.020 (11/03/23 1:11 PM) Normal 1.015-1.025 AO Auto Urine SS UA Specimen Type Clean Catch (11/03/23 1:11 PM) Normal AO Auto Urine SS UA Urobilinogen 0.2 E.U./dL Normal 0.2-1.0 AO Auto Urine SS PREGUon 11-03-2023 HCG ( test) Ql (U) Negative Normal [facility] ([place] Comment on above: Performed By: #### M DW, BMP, GFR, CBC, ADIFF, ANEU #### [address] [address] test (u) int Not detected Invalid Interpretation Code [facility] ([place] Comment on above: Performed By: #### M DW, BMP, GFR, CBC, ADIFF, ANEU #### [address] [address] UAon 11-03-2023 Color (U) Yellow Normal [facility] ([place] Comment on above: Performed By: #### M DW, BMP, GFR, CBC, ADIFF, ANEU #### [address] [address] Glucose (U) [Mass/Vol] Negative Normal Negative [facility] ([place]) Comment on above: Performed By: #### M DW, BMP, GFR, CBC, ADIFF, ANEU #### [address] [address] Ketones Ql (U) Negative Normal Negative [facility] ([place]) Comment on above: Performed By: #### M DW, BMP, GFR, CBC, ADIFF, ANEU #### [address] [address] UA Appear Clear Normal Clear [facility] ([place]) Comment on above: Performed By: #### M DW, BMP, GFR, CBC, ADIFF, ANEU #### [address] [address] UA Blood Trace Abnormal Negative [facility] ([place] Comment on above: Performed By: #### M DW, BMP, GFR, CBC, ADIFF, ANEU #### [address] [address] UA Leuk Est Negative Normal Negative [facility] ([place]) Comment on above: Performed By: #### M DW, BMP, GFR, CBC, ADIFF, ANEU #### [address] [address] UA Nitrite Negative Normal Negative [facility] ([place] Comment on above: Performed By: #### M DW, BMP, GFR, CBC, ADIFF, ANEU #### [address] [address] UA pH 5.5 Normal 5.0 - 8.0 [facility] ([place] Comment on above: Performed By: #### M DW, BMP, GFR, CBC, ADIFF, ANEU #### [address] [address] UA Protein Negative Normal Negative [facility] ([place] Comment on above: Performed By: #### M DW, BMP, GFR, CBC, ADIFF, ANEU #### [address] [address] UA Spec Grav 1.020 Normal 1.015-1.025 [facility] ([place]) Comment on above: Performed By: #### M DW, BMP, GFR, CBC, ADIFF, ANEU #### [address] [address] UA Specimen Type Clean Catch Normal [facility] ([place]) Comment on above: Performed By: #### M DW, BMP, GFR, CBC, ADIFF, ANEU #### [address] [address] UA Urobilinogen 0.2 E.U./dL Normal 0.2-1.0 [facility] [place] Comment on above: Performed By: #### M DW, BMP, GFR, CBC, ADIFF, ANEU #### [address] [address] Urobilinogen (U) [Mass/Vol] Negative Normal Negative [facility] ([place] Comment on above: Performed By: #### M DW, BMP, GFR, CBC, ADIFF, ANEU #### [address] [place], [place] [address] CBC W/Diff, Automatedon 08-0 -2023 Absolute Lymph 2.56 X10 3/uL Normal 0.83-4.51 [facility] Comment on above: Performed By: #### L 100.0100, L501.6710, L101.9900 ####[facility] [address] [place], [address] Absolute Neut 4.5 X10 3/uL Normal 2.0-7.7 [facility] Comment on above: Performed By: #### L 100.0100, L501.6710, L101.9900 ####[facility] [address] [place], [address] Basophils/100 WBC (Bld) 0.3 % Normal 0-1 [facility] Comment on above: Performed By: #### L 100.0100, L501.6710, L101.9900 ####[facility] [address] [place], [address] Eosinophils/100 WBC (Bld) 2.5 % Normal 0-5 [facility] Comment on above: Performed By: #### L 100.0100, L501.6710, L101.9900 ####[facility] [address] [place], [address] Erythrocyte distribution width (RBC) [Ratio] 12.8 % Normal 11.6-14.6 [facility] Comment on above: Performed By: #### L 100.0100, L501.6710, L101.9900 ####[facility] [address] [place], [address] Hematocrit (Bld) [Volume fraction] 40.0 % Normal 37-47 [facility] Comment on above: Performed By: #### L 100.0100, L501.6710, L101.9900 ####[facility] [address] [place], [address] Hemoglobin (Bld) [Mass/Vol] 12.9 g/dL Normal 12.0-15.0 [facility] Comment on above: Performed By: #### L 100.0100, L501.6710, L101.9900 ####[facility] [address] [place], [address] IG% 0.300 Normal 0.0-0.9 [facility] Comment on above: Result Comment: IG% - Immature Granulocytes (promyelocytes, myelocytes andmetamyelocytes) > 1% indicates that a LEFT SHIFT is Present. Performed By: #### L 100.0100, L501.6710, L101.9900 ####[facility] [address] [place], [address] Lymphocytes/100 WBC (Bld) 33.5 % Normal 19-41 [facility] Comment on above: Performed By: #### L 100.0100, L501.6710, L101.9900 ####[facility] [address] [place], [address] MCH (RBC) [Entitic mass] 27.6 pg Normal 27.0-32.0 [facility] Comment on above: Performed By: #### L 100.0100, L501.6710, L101.9900 ####[facility] [address] [place], [address] MCHC (RBC) [Mass/Vol] 32.3 g/dL Normal 32-36 [facility] Comment on above: Performed By: #### L 100.0100, L501.6710, L101.9900 ####[facility] [address] [place], [address] MCV (RBC) [Entitic vol] 85.7 fL Normal 81-99 [facility] Comment on above: Performed By: #### L 100.0100, L501.6710, L101.9900 ####[facility] [address] [place], [address] Monocytes/100 WBC (Bld) 4.6 % Normal 0-10 [facility] Comment on above: Performed By: #### L 100.0100, L501.6710, L101.9900 ####[facility] [address] [place], [address] Neutrophils/100 WBC (Bld) 58.8 % Normal 47-70 [facility] Comment on above: Performed By: #### L 100.0100, L501.6710, L101.9900 ####[facility] [address] [place], [address] Nucleated RBC (Bld) [#/Vol] 0 10*3/uL Normal 0-5 [facility] Comment on above: Performed By: #### L 100.0100, L501.6710, L101.9900 ####[facility] [address] [place], [address] Platelet mean volume (Bld) [Entitic vol] 9.2 fL Normal 6.2-12.0 [facility] Comment on above: Performed By: #### L 100.0100, L501.6710, L101.9900 ####[facility] [address] [place], [address] Platelets (Bld) [#/Vol] 324 10*3/uL Normal 150-450 [facility] Comment on above: Performed By: #### L 100.0100, L501.6710, L101.9900 ####[facility] [address] [place], [address] RBC (Bld) [#/Vol] 4.67 10*6/uL Normal 4.2-5.4 [facility] Comment on above: Performed By: #### L 100.0100, L501.6710, L101.9900 ####[facility] [address] [place], [address] RDW SD 39.8 fl Normal 35.1-43.9 [facility] Comment on above: Performed By: #### L 100.0100, L501.6710, L101.9900 ####[facility] [address] [place], [address] WBC (Bld) [#/Vol] 7.7 10*3/uL Normal 4.4-11.0 [facility] Comment on above: Performed By: #### L 100.0100, L501.6710, L101.9900 ####[facility] [address] [place], [address] CRPon 10-28-2023 C-REACTIVE PROT 13.90 mg/L High 0.0-3.0 [facility] Comment on above: Result Comment: C-Re active Protein (CRP) provides useful information for thediagnosis, therapy and monitoring of inflammatory processesand associated diseases. For the evaluation of Relative Riskfor Cardiovascular Disease, a High Sensitivity CRP (HSCRP)should be ordered. Performed By: #### L 100.0100, L501.6710, L101.9900 ####[facility] [address] [place], [address] Erythrocyte Sed Rateon 10-27 SED RATE 5 mm/hr Normal 0-30 [facility] Comment on above: Performed By: #### L 100.0100, L501.6710, L101.9900 ####[facility] [address] [place], [address] C reactive proteinon 024 CRP [Mass/Vol] 1.17 mg/dL High <1.00 [facility] Comment on above: Performed By: #### 2 4356-8 #### KATYA Rob ([id number]) [facility] ([facility]) [address] [place] [address] CBC panel Auto (Bld)on 10-06 Erythrocyte distribution width (RBC) [Ratio] 13.0 % Normal 11.5-14.5 [facility] Comment on above: Performed By: #### 5 8410-2 #### KATYA Rob ([id number]) [facility] ([facility]) [address] [place] [address] Hematocrit (Bld) [Volume fraction] 39.8 % Normal 36.0-46.0 [facility] Comment on above: Performed By: #### 5 8410-2 #### KATYA Rob ([id number]) [facility] ([facility]) [address] [place] [address] Hemoglobin (Bld) [Mass/Vol] 12.6 g/dL Normal 12.0-16.0 [facility] Comment on above: Performed By: #### 5 8410-2 #### KATYA Rob ([id number]) [facility] ([facility]) [address] [place] [address] MCH (RBC) [Entitic mass] 27.8 pg Normal 26.0-34.0 [facility] Comment on above: Performed By: #### 5 8410-2 #### KATYA Rob ([id number]) [facility] ([facility]) [address] [place] [address] MCHC (RBC) [Mass/Vol] 31.7 g/dL Low 32.0-36.0 [facility] Comment on above: Performed By: #### 5 8410-2 #### KATYA Rob ([id number]) [facility] ([facility]) [address] [place] [address] MCV (RBC) [Entitic vol] 88 fL Normal 80-100 [facility] Comment on above: Performed By: #### 5 8410-2 #### KATYA Rob ([id number]) [facility] ([facility]) [address] [place] [address] Nucleated RBC/100 WBC (Bld) [Ratio] 0.0 /100 WBCs Normal 0.0-0.0 [facility] Comment on above: Performed By: #### 5 8410-2 #### KATYA Rob ([id number]) [facility] ([facility]) [address] [place] [address] Platelets (Bld) [#/Vol] 278 x10*3/uL Normal 150-450 [facility] Comment on above: Performed By: #### 5 8410-2 #### KATYA Rob ([id number]) [facility] ([facility]) [address] [place] [address] RBC (Bld) [#/Vol] 4.54 x10*6/uL Normal 4.00-5.20 [facility] Comment on above: Performed By: #### 5 8410-2 #### KATYA Rob ([id number]) [facility] ([facility]) [address] [place] [address] WBC (Bld) [#/Vol] 8.8 x10*3/uL Normal 4.4-11.3 [facility] Comment on above: Performed By: #### 5 8410-2 #### KATYA Rob ([id number]) [facility] ([facility]) [address] [place] [address] Calcidiolon 10-07-2023 25-hydroxyvitamin D3 [Mass/Vol] 38 ng/mL Normal 30-100 [facility] Comment on above: Order Comment: Defic iency: < 20 ng/ml Insufficiency: 20-29 ng/ml Sufficiency: 30-100 ng/ml This assay accurately quantifies the sum of Vitamin D3, 25-Hydroxy and Vitamin D2,25-Hydroxy. Performed By: #### 1 989-3 #### KATYA Rob ([id number]) [facility] ([facility]) [address] [place] [address] Cancer Ag 125on 10-07-2023 Cancer Ag 125 Qn 10.1 [arb'U]/mL Normal 0.0-30.2 [facility] Comment on above: Order Comment: CA 12 5 testing is performed by chemiluminescent immunoassay using the [employer]. Values obtained with different analytic methods cannot be used interchangeably. Serum CA 125 measurement is intended for use as an aid in monitoring patients previously treated for ovarian cancer. This assay is not intended for screening or diagnosis of cancer in the general population. The results must not be used as the sole means for clinical diagnosis or patient management decisions. Performed By: #### 1 0334-1 #### KATYA Rob ([id number]) [facility] ([facility]) [address] [place], [place] [address] Cobalaminson 10-07-2023 Cobalamin (Vitamin B12) [Mass/Vol] 505 pg/mL Normal 211-911 [facility] Comment on above: Performed By: #### 2 132-9 #### KATYA Rob ([id number]) [facility] ([facility]) [address] [place], [place] [address] Comprehensive metabolic 2000 panelon 10-07-2023 Albumin BCP dye [Mass/Vol] 4.4 g/dL Normal 3.4-5.0 [facility] Comment on above: Performed By: #### 2 4356-8 #### KATYA Rob ([id number]) [facility] ([facility]) [address] [place] [address] ALP [Catalytic activity/Vol] 71 U/L Normal 33-110 [facility] Comment on above: Performed By: #### 2 4356-8 #### KATYA Rob ([id number]) [facility] ([facility]) [address] [place] [address] ALT With P-5'-P [Catalytic activity/Vol] 37 U/L Normal 7-45 [facility] Comment on above: Result Comment: Giselle ents treated with Sulfasalazine may generate falsely decreased results for ALT. Performed By: #### 2 4356-8 #### KATYA Rbo ([id number]) [facility] ([facility]) [address] [place] [address] Anion gap [Moles/Vol] 13 mmol/L Normal 10-20 [facility] Comment on above: Performed By: #### 2 4356-8 #### KATYA Rob ([id number]) [facility] ([facility]) [address] [place] [address] AST With P-5'-P [Catalytic activity/Vol] 33 U/L Normal 9-39 [facility] Comment on above: Performed By: #### 2 4356-8 #### KATYA Rob ([id number]) [facility] ([facility]) [address] [place] [address] Bilirubin [Mass/Vol] 0.3 mg/dL Normal 0.0-1.2 [facility] Comment on above: Performed By: #### 2 4356-8 #### KATYA Rob ([id number]) [facility] ([facility]) [address] [place] [address] Calcium [Mass/Vol] 9.5 mg/dL Normal 8.6-10.6 [facility] Comment on above: Performed By: #### 2 4356-8 #### KATYA Rob ([id number]) [facility] ([facility]) [address] [place] [address] Chloride [Moles/Vol] 102 mmol/L Normal 98-107 [facility] Comment on above: Performed By: #### 2 4356-8 #### KATYA Rob ([id number]) [facility] ([facility]) [address] [place] [address] CO2 [Moles/Vol] 28 mmol/L Normal 21-32 [facility] Comment on above: Performed By: #### 2 4356-8 #### KATYA Rob ([id number]) [facility] ([facility]) [address] [place] [address] Creatinine [Mass/Vol] 0.65 mg/dL Normal 0.50-1.05 [facility] Comment on above: Performed By: #### 2 4356-8 #### KATYA Rob ([id number]) [facility] ([facility]) [address] [place] [address] GFR/1.73 sq M.predicted MDRD (S/P/Bld) [Vol rate/Area] mL/min/{1.73_m2} Normal >60 [facility] Comment on above: Result Comment: Calc ulations of estimated GFR are performed using the 2020 CKD-EPI Study Refit equation without the race variable for the IDMS-Traceable creatinine methods. https://jasn.asnjournals.org/content//ASN.98675 62400 Performed By: #### 2 4356-8 #### KATYA Rob ([id number]) [facility] ([facility]) [address] [place] [address] Glucose [Mass/Vol] 81 mg/dL Normal 74-99 [facility] Comment on above: Performed By: #### 2 4356-8 #### KATYA Rob ([id number]) [facility] ([facility]) [address] [place] [address] Potassium [Moles/Vol] 3.8 mmol/L Normal 3.5-5.3 [facility] Comment on above: Performed By: #### 2 4356-8 #### KATYA Rob ([id number]) [facility] ([facility]) [address] [place] [address] Protein [Mass/Vol] 7.4 g/dL Normal 6.4-8.2 [facility] Comment on above: Performed By: #### 2 4356-8 #### KATYA CHOI L ([id number]) [facility] ([facility]) [address] [place] [address] Sodium [Moles/Vol] 139 mmol/L Normal 136-145 [facility] Comment on above: Performed By: #### 2 4356-8 #### KATYA Rob ([id number]) [facility] ([facility]) [address] [place] [address] Urea nitrogen [Mass/Vol] 9 mg/dL Normal 6-23 [facility] Comment on above: Performed By: #### 2 4356-8 #### KATYA Rob ([id number]) [facility] ([facility]) [address] [place] [address] ESR Westergren method (Bld) [Velocity]on 10-07-2023 ESR (Bld) [Velocity] 14 mm/h Normal 0-20 [facility] Comment on above: Performed By: #### 4 537-7 #### KATYA Rob ([id number]) [facility] ([facility]) [address] [place] [address] Folateon 10-07-2023 Folate [Mass/Vol] 19.7 ng/mL Normal >5.0 [facility] Comment on above: Order Comment: Low < 3.4 Borderline 3.4-5.0 Normal >5.0 Patients receiving more than 5 mg/day of biotin may have interference in test results. A sample should be taken no sooner than eight hours after previous dose. Contact the testing laboratory for additional information. Performed By: #### 2 284-8 #### KATYA Rob ([id number]) [facility] ([facility]) [address] [place] [address] Iron and Iron binding capaci ty panelon 10-07-2023 Iron [Mass/Vol] 104 ug/dL Normal 35-150 [facility] Comment on above: Performed By: #### 2 4356-8 #### KATYA Rob ([id number]) [facility] ([facility]) [address] [place] [address]284 Iron binding capacity [Mass/Vol] 357 ug/dL Normal 240-445 [facility] Comment on above: Performed By: #### 2 4356-8 #### KATYA Rob ([id number]) [facility] ([facility]) [address] [place] [address] Iron binding capacity.unsaturated [Mass/Vol] 253 ug/dL Normal 110-370 [facility] Comment on above: Performed By: #### 2 4356-8 #### KATYA Rob ([id number]) [facility] ([facility]) [address] [place] [address] Iron saturation [Mass fraction] 29 % Normal 25-45 [facility] Comment on above: Performed By: #### 2 4356-8 #### KATYA Rob ([id number]) [facility] ([facility]) [address] [place], [place] [address] US PELVIS TRANSVAGINALon US PELVIS TRANSVAGINAL Interpreted By: Tiffany Zhao, STUDY: US PELVIS TRANSVAGINAL; 10/07/2023 1:48 pm INDICATION: Signs/Symptoms:endomet riosis. COMPARISON: 02/13/2021 ACCESSION NUMBER(S): [id number] ORDERING CLINICIAN: MELISSA FERNÁNDEZ TECHNIQUE: Grayscale and color Doppler imaging of the pelvis were performed. Transabdominal technique was utilized as well as transvaginal ultrasound to better visualize the adnexa. FINDINGS: Uterus: The uterus is surgically absent. Ovaries: There is normal color-flow with no sign of ovarian torsion. Right ovary: 2.7 x 2.8 x 2.8 cm. There are a few small follicles within right ovary. The left ovary is not visualized and by history is surgically absent. There is no free fluid in the pelvis. No pelvic mass is demonstrated. IMPRESSION: Status post hysterectomy and left oophorectomy. Normal right ovary. No free fluid or pelvic mass. MACRO: None. Signed by: Tiffany Solis 10/08/2023 7:25 PM Dictation workstation: [id number] [facility] 09-03-2023 CNPN Telephone (AGRHEUHWN ) KAYA ARCE ([id number]) 1985 F FNS Date Time Provider Department 09/03/23 BRENDA BERG During your visit today, we recorded the following information about you: Miel Rendon 09/03/2023 2:28 PM Signed Received email from Silvia for [employer] denial of MRI pelvis. Needs [id number] done prior to 09/08/23 Call [phone] opt2 Case #[id number] Opt 1 I scanned in denial. Please and thank you. Mile Quach Senior [employer]er Lissy Sarmiento PA-C 09/06/2023 3:19 PM Signed Called to conduct P2P Patient had MRI pelvis 08/06/23 with for endometriosis. So insurance is denying a 2nd one. Report only reads: BONES: Spiral degenerative changes involving the sacroiliac joints as in prior. Can we call and ask radiologist to read films again looking specifically at SI joints- for sacroiliitis and erosions? History of ulcerative colitis, currently being evaluated for sacroiliitis or ankylosing spondylitis. History of using Humira in the past, trying to decide if Biologics are needed Previous MRI in 2013 showed subtle erosive changes bilaterally at the iliac side of the SI joints. CT in 2012 showed prominent subchondral sclerosis involving the iliac bones adjacent to the SI joints She has a long history of chronic back pain If they cannot use this MRI- then I need to send a note/addendum back listing why Upload to Kybalion.INAPPIN Or fax to: Info is due by 09/08/23 WILFREDO Wright Senior Piping DesignerMile love 09/06/2023 3:32 PM Signed Called [facility] radiology, mri-Serge. He said that the problem is a body radiologist read it and an ortho radiologist will need to look at it for the addendum. He took our number and said he will check into it and call me back soon. Mile Quach Senior Piping Designerivan Quach Senior Piping DesignerMile love 09/06/2023 3:45 PM Signed [facility] called back, said the study was done at [facility], but they doubt they will addend the report. I called Kandis in radiology at [facility], ; she said radiologist was gone for the day, but she will message them and get an answer back to me tomorrow. Mile Quach Senior Piping Designer aMin Senior Piping DesignerMile 09/08/2023 8:53 AM Signed Called [facility] Radiology back; spoke with Dr Russell. He said that there are different sequencing of images for SI joint evaluation, which were not done. He looked at the film and said it looks grossly okay, some arthritic changes - was seen in MRI SI jt eval 2021 - also more evident in Ct study done April 2023. But he doesn't have fat sat imaging to look for edema. I don't know if this will help to overturn, or if it gives Dr Berg what she needs. Mile Quach Senior Piping DesignerLissy Miguel PA-C 09/08/2023 11:51 AM Signed Needs appealed by today 09/08/23 Please create letter to mail with that information MRI pelvis W/WO contrast done on 08/06/23 was done by OBGYN for hysterectomy, endometriosis Per radiologist at [facility], these films are different than what we ordered (we need MRI pelvis ortho) to assess SI joints. Dr Russell said that there are different sequencing of images for SI joint evaluation, which were not done. He looked at the film and said it looks grossly okay, some arthritic changes - was seen in MRI SI jt eval 2021 - also more evident in Ct study done April 2023. But he doesn't have fat sat imaging to look for edema. New imaging needed for: MRI PELVIS ORTHO GENERAL WO IVCON Please approve imaging to further assess for sacroiliitis to determine if biologics are needed to treat Lissy Sarmiento PA-C Upload to Kybalion.INAPPIN Or fax to: Main [place] love 09/09/2023 12:16 PM Signed Faxed in appeal letter 09/08/23. Mile Quach [place] Allergies As of Date: 09/03/2023 Noted Allergy Reaction EUCALYPTUS 06/07/2007 4 - [...] cold and clammy (subjective only) Date Reviewed: 07/29/2023 Reviewed by: Ravi Blank LPN - Fully Assessed Reason for Visit: Insurance Authorization [[id number]] Cmt: MRI pelvis denial [employer]AL Prescriptions as of 09/09/2023 - tretinoin (RETIN-A) 0.025 % topical cre (more content not included)... Normal [facility] MR PELVIS W AND WO IV CONTRA STon 08-06-2023 MR PELVIS W AND WO IV CONTRAST Interpreted By: Braden Laguna, STUDY: MR PELVIS W AND WO IV CONTRAST; 08/06/2023 3:37 pm INDICATION: Signs/Symptoms:endomet riosis. COMPARISON: CT scans trace back to 09/23/2022. Pelvic [facility] protocol MRI dated 09/19/2019 ACCESSION NUMBER(S): [id number] ORDERING CLINICIAN: CANELO PIAN TECHNIQUE: Multiplanar MRI of the pelvis was obtained including axial, sagittal and coronal T2 weighted SSFSE, (para)axial, (para)coronal and sagittal T2 FSE , axial DWI, pre and post gadolinium dynamic T1 GRE sequences in 3 planes. 17 ml of Gadolinium contrast agent Dotarem were administered intravenously without complication. FINDINGS: UTERUS: Status post total abdominal hysterectomy with asymmetric minimal enhancing soft tissue thickening and enhancement noted just superior to the left vaginal cuff (series 26, image 21/series 32, image 34) OVARIES/ADNEXA: RIGHT: The right ovary is normal in size and appears unremarkable. Few small follicles noted. There is a well-defined lesion measuring 2 cm that appears heterogenous in T2 weighted image (series 7, image 10) and predominantly T1 hyperintense (series 14, image 21) with no postcontrast enhancement. LEFT: Status post left salpingo-oophorectomy. PERITONEAL FLUID: No free or loculated fluid collections are evident in the pelvis. PELVIC LYMPH NODES: Nonspecific tiny right perirectal 0.3 cm lymph node BOWEL: No bowel dilatation BONES: Spiral degenerative changes involving the sacroiliac joints as in prior. IMPRESSION: 1. Status post total abdominal hysterectomy and left-sided salpingo-oophorectomy with nonspecific asymmetric minimal enhancing soft tissue thickening just superior the left vaginal cuff likely postoperative changes and felt less likely to represent endometriosis implant, however would warrant attention on follow-up. 2. Right adnexal lesion measuring 2 cm with imaging characteristics could represent hemorrhagic/collapsed follicle, however endometriosis could not be entirely excluded. This could be followed up in 6-8 weeks by dedicated pelvic ultrasound. 3. Stable tiny nonspecific right perirectal 0.3 cm lymph node. Unchanged from multiple priors and likely benign MACRO: None Signed by: Braden Laguna 08/09/2023 3:41 PM Dictation workstation: [id number] [facility] IAN BY IFA SCREENOrdered By: Ceci Sinha on 07-23-2023 Interpretation and review of laboratory results Abnormal [facility] Nuclear Ab pattern (S) [Interp] Nuclear homogeneous [facility] Nuclear Ab Ql (S) Positive Abnormal Negative [facility] Comment on above: Anti-nuclear antibod y test is used as an aid in diagnosis of systemic autoimmune diseases. Where positive and clinically warranted, follow-up using disease-specific testing is recommended. Low positive titers are not uncommon with advanced age, certain chronic infections, and malignancies among others. Test methodology: Indirect fluorescence immunoassay (IFA) using HEp-2 cells. Nuclear Ab Ql (S) 1:80 [facility] CCP ANTIBODY IGGOrdered By: Constanza Chapa on 07-23-2023 Cyclic citrullinated peptide IgG Qn NINF [facility] Cyclic citrullinated peptide IgG QnOrdered By: Constanza Chapa on 07-23-2023 CCP Antibody IgG Qualitative Negative Negative [facility] Interpretation and review of laboratory results Normal [facility] This test is used as aid in diagnosis of Rheumatoid arthritis (RA). A negative result cannot rule out RA where clinically suspected. Clinical correlation is required. The following results were obtained with an Immunome QUANTA Lite CCP IgG GINGER. Cyclic Citrullinated Peptide IgG values obtained with different manufacturers' assay methods may not be used interchangeably. The magnitude of the reported IgG levels cannot be correlated to an endpoint titer. [facility] DNA ANTIBODY DS BLDOrdered B y: Joellen Shah on 07-23-2023 DNA Antibody 22 [facility] Comment on above: Negative: <200 IU/mL Equivocal: 201-300 IU/mL Moderate Positive: 301-800 IU/mL Strong Positive: >801 IU/mL DNA Antibody Qualitative Interpretation Negative Negative [facility] Interpretation and review of laboratory results Normal [facility] This test is used as an aid in diagnosis of systemic lupus erythematous in patients with positive anti-nuclear antibody (IAN) test result. It may also be used for prognostication and monitoring response to treatment where clinically warranted. Results were obtained with the QUANTA Lite dsDNA GINGER. Double-stranded DNA values obtained with different manufacturers' assay methods should not be used interchangeably. [facility] No Panel Informationon 07-22 Interpretation and review of laboratory results Normal [facility] RHEUMATOID FACTORon 07-23-19 24 Rheumatoid factor Qn [facility] [employer]ACH[employer]TER SUPERVISOR ANTIBODY BLOODon 024 Ribonucleoprotein extractable nuclear Ab Qn (S) 0.2 [facility] Rheumatoid factor Qnon 07-22 Interpretation and review of laboratory results Normal [facility] Ribonucleoprotein extractabl e nuclear Ab Qn (S)on 07-23-2023 MACHINE SETTER SUPERVISOR Antibody QUAL Negative Negative [facility] Anti-MACHINE SETTER SUPERVISOR antibody is used as an aid in diagnosis of systemic autoimmune diseases especially systemic lupus erythematosus and mixed connective tissue disease. Cross-reactivity with Anti-blank antibody is not uncommon. Clinical correlation is required. Test Methodology: Multiplex flow immunoassay. [facility] SJOGREN ABS SSA/SSBon 2023 Sjogrens syndrome-A extractable nuclear Ab Qn (S) [facility] Sjogrens syndrome-B extractable nuclear Ab Qn (S) [facility] SSA Antibody Qual Negative Negative [facility] Comment on above: Anti-SSA (anti-Ro) a ntibody is used as an aid in diagnosis of a variety of systemic autoimmune diseases, Sjogren's syndrome among others. Clinical correlation is required. Test Methodology: Multiplex flow immunoassay. SSB Antibody Qual Negative Negative [facility] Comment on above: Anti-SSB (anti-La) a ntibody is used as an aid in diagnosis of a variety of systemic autoimmune diseases, especially for Sjogren's syndrome and systemic lupus erythematosus. Clinical correlation is required. Test Methodology: Multiplex flow immunoassay. BLANK IGG ABon 07-23-2023 Blank extractable nuclear IgG Qn (S) NINF [facility] Blank extractable nuclear Ig G Qn (S)on 07-23-2023 SM Antibody Qual Negative Negative [facility] Comment on above: Anti-Sm (Blank) anti body is used as an aid in diagnosis of systemic lupus erythematosus and its presence is associated with renal disease. A negative result cannot rule out systemic lupus erythematosus. Clinical correlation is required. Test Methodology: Multiplex flow immunoassay. 25(OH)D3 [facility] 2023 25-hydroxyvitamin D3 [Mass/Vol] 38.1 ng/mL Normal >=30.0 [facility] Comment on above: Order Comment: Speci men Type: BLOOD SPECIMEN Ordering Facility: [facility] Address: [address] [place] [address] Result Comment: Clas sification of 25 [place] Vitamin D status: Deficiency: <= 20.0 ng/ml. Insufficiency: 21.0-29.0 ng/ml. Sufficiency: >= 30.0 ng/ml. Performed By: #### 1 989-3 #### [facility] CLIA [id number] [address] [place] [address] [place] 25-hydroxyvitamin D3 [Mass/V ol]on 07-22-2023 Interpretation and review of laboratory results Normal [facility] IAN BY IFA SCREENon 07-22-19 Nuclear Ab pattern (S) [Interp] Nuclear homogeneous Normal [facility] Comment on above: Order Comment: Specmaximiliano wren Type: BLOOD SPECIMEN Ordering Facility: [facility] Address: [address] [place] [address] Performed By: #### 1 8323-6, XSSAB, 98478-1 #### [facility] CLIA [id number] [address] [place] [address] [place] Nuclear Ab Ql (S) Positive Abnormal Negative [facility] Comment on above: Order Comment: Speci men Type: BLOOD SPECIMEN Ordering Facility: [facility] Address: [address] [place] [address] Result Comment: Anti -nuclear antibody test is used as an aid in diagnosis of systemic autoimmune diseases. Where positive and clinically warranted, follow-up using disease-specific testing is recommended. Low positive titers are not uncommon with advanced age, certain chronic infections, and malignancies among others. Test methodology: Indirect fluorescence immunoassay (IFA) using HEp-2 cells. 1:80 Performed By: #### 1 8323-6, XSSAB, 63840-6 #### [facility] CLIA [id number] [address] [place] [address] [place] CBC W Auto Differential pane l (Bld)on 07-22-2023 Basophils (Bld) [#/Vol] 0.04 10*3/uL [facility] Basophils/100 WBC (Bld) 0.4 % [facility] Differential cell count method Nom (Bld) Auto [facility] Eosinophils (Bld) [#/Vol] 0.24 10*3/uL [facility] Eosinophils/100 WBC (Bld) 2.7 % [facility] Erythrocyte distribution width (RBC) [Ratio] 12.8 % 11.5 - 15.0 % [facility] Hematocrit (Bld) [Volume fraction] 44.1 % 36.0 - 46.0 % [facility] Hemoglobin (Bld) [Mass/Vol] 13.9 g/dL 11.5 - 15.5 g/dL [facility] Immature granulocytes (Bld) [#/Vol] 0.04 10*3/uL [facility] Immature granulocytes/100 WBC (Bld) 0.4 % [facility] Lymphocytes (Bld) [#/Vol] 2.30 10*3/uL [facility] Lymphocytes/100 WBC (Bld) 25.8 % [facility] MCH (RBC) [Entitic mass] 28.1 pg 26.0 - 34.0 pg [facility] MCHC (RBC) [Mass/Vol] 31.5 g/dL 30.5 - 36.0 g/dL [facility] MCV (RBC) [Entitic vol] 89.3 fL 80.0 - 100.0 fL [facility] Monocytes (Bld) [#/Vol] 0.46 10*3/uL [facility] Monocytes/100 WBC (Bld) 5.2 % [facility] Neutrophils (Bld) [#/Vol] 5.82 10*3/uL [facility] Neutrophils/100 WBC (Bld) 65.5 % [facility] Nucleated RBC (Bld) [#/Vol] NINF [facility] Nucleated RBC/100 WBC (Bld) [Ratio] 0.0 % /100 WBC [facility] Platelet mean volume (Bld) [Entitic vol] 9.7 fL 9.0 - 12.7 fL [facility] Platelets (Bld) [#/Vol] 338 10*3/uL [facility] RBC (Bld) [#/Vol] 4.94 10*6/uL 3.90 - 5.2 0 m/uL [facility] WBC (Bld) [#/Vol] 8.90 10*3/uL [place] Basophils (Bld) [#/Vol] 0.04 10*3/uL Normal <0.11 [facility] Comment on above: Order Comment: Speci men Type: BLOOD SPECIMEN Ordering Facility: [facility] Address: [address] [place] [address] Performed By: #### 1 8323-6, XSSAB, 91662-8 #### [facility] CLIA [id number] [address] [place] [address] [place] Basophils/100 WBC (Bld) 0.4 % Normal [facility] Comment on above: Order Comment: Speci men Type: BLOOD SPECIMEN Ordering Facility: [facility] Address: [address] [place] [address] Performed By: #### 1 8323-6, XSSAB, 28003-3 #### [facility] CLIA [id number] [address] [place] [address] [place] Differential cell count method Nom (Bld) Auto Normal [facility] Comment on above: Order Comment: Speci men Type: BLOOD SPECIMEN Ordering Facility: [facility] Address: [address] [place] [address] Performed By: #### 1 8323-6, XSSAGuadalupe, 16426-8 #### [facility] CLIA [id number] [address] [place] [address] [place] Eosinophils (Bld) [#/Vol] 0.24 10*3/uL Normal <0.46 [facility] Comment on above: Order Comment: Speci men Type: BLOOD SPECIMEN Ordering Facility: [facility] Address: [address] [place] [address] Performed By: #### 1 8323-6, XSVICTOR HUGO, 08827-6 #### [facility] CLIA [id number] [address] [place] [address] [place] Eosinophils/100 WBC (Bld) 2.7 % Normal [facility] Comment on above: Order Comment: Speci men Type: BLOOD SPECIMEN Ordering Facility: [facility] Address: [address] [place] [address] Performed By: #### 1 8323-6, XSVICTOR HUGO, 90713-4 #### [facility] CLIA [id number] [address] [place] [address] [place] Erythrocyte distribution width (RBC) [Ratio] 12.8 % Normal 11.5-15.0 [facility] Comment on above: Order Comment: Speci men Type: BLOOD SPECIMEN Ordering Facility: [facility] Address: [address] [place] [address] Performed By: #### 1 8323-6, XSSAGuadalupe, 85504-0 #### [facility] CLIA [id number] [address] [place] [address] [place] Hematocrit (Bld) [Volume fraction] 44.1 % Normal 36.0-46.0 [facility] Comment on above: Order Comment: Speci men Type: BLOOD SPECIMEN Ordering Facility: [facility] Address: [address] [place] [address] Performed By: #### 1 8323-6, XSVICTOR HUGO, 98983-2 #### [facility] CLIA [id number] [address] [place] [address] [place] Hemoglobin (Bld) [Mass/Vol] 13.9 g/dL Normal 11.5-15.5 [facility] Comment on above: Order Comment: Speci men Type: BLOOD SPECIMEN Ordering Facility: [facility] Address: [address] [place] [address] Performed By: #### 1 8323-6, NITZA, 85709-2 #### [facility] CLIA [id number] [address] [place] [address] [place] Immature granulocytes (Bld) [#/Vol] 0.04 10*3/uL Normal <0.10 [facility] Comment on above: Order Comment: Speci men Type: BLOOD SPECIMEN Ordering Facility: [facility] Address: [address] [place] [address] Performed By: #### 1 8323-6, XSVICTOR HUGO, 05957-1 #### [facility] CLIA [id number] [address] [place] [address] [place] Immature granulocytes/100 WBC (Bld) 0.4 % Normal [facility] Comment on above: Order Comment: Speci men Type: BLOOD SPECIMEN Ordering Facility: [facility] Address: [address] [place] [address] Performed By: #### 1 8323-6, XSSAGuadalupe, 50139-2 #### [facility] CLIA [id number] [address] [place] [address] [place] Lymphocytes (Bld) [#/Vol] 2.30 10*3/uL Normal 1.00-4.00 [facility] Comment on above: Order Comment: Speci men Type: BLOOD SPECIMEN Ordering Facility: [facility] Address: [address] [place] [address] Performed By: #### 1 8323-6, XSSAB, 99536-3 #### [facility] CLIA [id number] [address] [place] [address] [place] Lymphocytes/100 WBC (Bld) 25.8 % Normal [facility] Comment on above: Order Comment: Speci men Type: BLOOD SPECIMEN Ordering Facility: [facility] Address: [address] [place] [address] Performed By: #### 1 8323-6, XSSAGuadalupe, 41903-0 #### [facility] CLIA [id number] [address] [place] [address] [place] MCH (RBC) [Entitic mass] 28.1 pg Normal 26.0-34.0 [facility] Comment on above: Order Comment: Speci men Type: BLOOD SPECIMEN Ordering Facility: [facility] Address: [address] [place] [address] Performed By: #### 1 8323-6, XSSAGuadalupe, 63117-6 #### [facility] CLIA [id number] [address] [place] [address] [place] MCHC (RBC) [Mass/Vol] 31.5 g/dL Normal 30.5-36.0 [facility] Comment on above: Order Comment: Speci men Type: BLOOD SPECIMEN Ordering Facility: [facility] Address: [address] [place] [address] Performed By: #### 1 8323-6, XSSAB, 04114-1 #### [facility] CLIA [id number] [address] [place] [address] [place] MCV (RBC) [Entitic vol] 89.3 fL Normal 80.0-100.0 [facility] Comment on above: Order Comment: Speci men Type: BLOOD SPECIMEN Ordering Facility: [facility] Address: [address] [place] [address] Performed By: #### 1 8323-6, XSSAB, 56803-9 #### [facility] CLIA [id number] [address] [place] [address] [place] Monocytes (Bld) [#/Vol] 0.46 10*3/uL Normal <0.87 [facility] Comment on above: Order Comment: Speci men Type: BLOOD SPECIMEN Ordering Facility: [facility] Address: [address] [place] [address] Performed By: #### 1 8323-6, XSSAB, 68650-5 #### [facility] CLIA [id number] [address] [place] [address] [place] Monocytes/100 WBC (Bld) 5.2 % Normal [facility] Comment on above: Order Comment: Speci men Type: BLOOD SPECIMEN Ordering Facility: [facility] Address: [address] [place] [address] Performed By: #### 1 8323-6, XSSAB, 63082-1 #### [facility] CLIA [id number] [address] [place] [address] [place] Neutrophils (Bld) [#/Vol] 5.82 10*3/uL Normal 1.45-7.50 [facility] Comment on above: Order Comment: Speci men Type: BLOOD SPECIMEN Ordering Facility: [facility] Address: [address] [place] [address] Performed By: #### 1 8323-6, XSSAB, 90197-1 #### [facility] CLIA [id number] [address] [place] [address] [place] Neutrophils/100 WBC (Bld) 65.5 % Normal [facility] Comment on above: Order Comment: Speci men Type: BLOOD SPECIMEN Ordering Facility: [facility] Address: [address] [place] [address] Performed By: #### 1 8323-6, XSSAB, 84581-3 #### [facility] CLIA [id number] [address] [place] [address] [place] Nucleated RBC (Bld) [#/Vol] 10*3/uL Normal <0.01 [facility] Comment on above: Order Comment: Speci men Type: BLOOD SPECIMEN Ordering Facility: [facility] Address: [address] [place] [address] Performed By: #### 1 8323-6, XSSAB, 74177-7 #### [facility] CLIA [id number] [address] [place] [address] [place] Nucleated RBC/100 WBC (Bld) [Ratio] 0.0 /100 WBC Normal [facility] Comment on above: Order Comment: Speci men Type: BLOOD SPECIMEN Ordering Facility: [facility] Address: [address] [place] [address] Performed By: #### 1 8323-6, XSSAB, 28757-2 #### [facility] CLIA [id number] [address] [place] [address] [place] Platelet mean volume (Bld) [Entitic vol] 9.7 fL Normal 9.0-12.7 [facility] Comment on above: Order Comment: Speci men Type: BLOOD SPECIMEN Ordering Facility: [facility] Address: [address] [place] [address] Performed By: #### 1 8323-6, XSSAB, 55528-1 #### [facility] CLIA [id number] [address] [place] [address] [place] Platelets (Bld) [#/Vol] 338 10*3/uL Normal 150-400 [facility] Comment on above: Order Comment: Speci men Type: BLOOD SPECIMEN Ordering Facility: [facility] Address: [address] [place] [address] Performed By: #### 1 8323-6, XSSAB, 36668-5 #### [facility] CLIA [id number] [address] [place] [address] [place] RBC (Bld) [#/Vol] 4.94 10*6/uL Normal 3.90-5.20 [facility] Comment on above: Order Comment: Speci men Type: BLOOD SPECIMEN Ordering Facility: [facility] Address: [address] [place] [address] Performed By: #### 1 8323-6, XSSAB, 83034-0 #### [facility] CLIA [id number] [address] [place] [address] [place] WBC (Bld) [#/Vol] 8.90 10*3/uL Normal 3.70-11.00 [facility] Comment on above: Order Comment: Speci men Type: BLOOD SPECIMEN Ordering Facility: [facility] Address: [address] [place] [address] Performed By: #### 1 8323-6, XSVICTOR HUGO, 67627-1 #### [facility] CLIA [id number] [address] [place] [address] [place] CNOVon 07-22-2023 CNOV Office Visit ([facility] ) KAYA ARCE ([id number]) 1985 F FNS Date Time Provider Department 07/22/23 8:20 AM BRENDA BERG [facility] During your visit today, we recorded the following information about you: Temperature Pulse Respiration Blood pressure 97.9 degrees 80/minute 14/minute 114/65 Weight Height 86.2 kg 1.6 m Brenda Berg MD 07/23/2023 11:24 AM Signed RHEUMATOLOGY NEW PATIENT NOTE REFERRING PHYSICIAN: Zainab Duckworth CHIEF COMPLAINT: Patient presents with: Joint Pain Nurse Visit HPI: Kaya Arce is a 37 year old female who presents with joint pain pityrosporum folliculitis, acne vulgaris, fibromyalgia chronic back pain. MRI (2013) showed subtle erosive changes bilaterally at the iliac side of the SI joints. Rest within normal limits. Suggestive of spondyloarthropathy. She first saw rheum after a fall. Had issues with foot drop. AM stiffness lasting for an hour. By the end of the day pain returns and affects her sleep. Gets numbness. Rest helps. Sometimes gelling. CT (2012) showed prominent subchondral sclerosis involving the iliac bones adjacent to the SI joints. saw different rheumatologists Tore gastroc muscle 2022. took 6 months to heal. Plaquenil - helped but dc due to diarrhea Humira Mesalamine Dx UC at age 1. Treated with enemas and dietary restriction. Sees GI in [place]. Had "positive gastroparesis test" By age 9-10 not as many issues 2006 had colonoscopy that was unremarkable 01/2019 rectal surgery for anal fistula POTS Endometriosis, hysterectomy. found ovarian cancer. Going to . Fibromyalgia Troch bursitis Sees pain management. She has 1 kid who is 19 years old Family history of autoimmune disease: Father with metastatic lung cancer. Smoking status: Tobacco Use: Never Rheumatology REVIEW OF SYSTEMS: Constitutional: Recent Weight Change: No Fatigue: No Fever: No Night sweats: No Heent: Alopecia: No H/o Inflammatory eye disease (iritis/scleritis): uveitis? Hearing loss: No Frequent sinusitis: No Oral ulcers: YES Sicca: No Parotid swelling: No Hoarseness: No Dysphagia: No Heme/lymph: Lymphadenopathy: No Hematological abnormalities (anemia, thrombocytopenia, leukopenia): No Abnormal bleeding: No Skin: Malar or discoid lesions: No Photosensitivity: No Other rashes: YES acne? Rosacea? Eczema? Seen derm Raynaud's phenomenon: No Hives: No Tightness: No Nodules/bumps: No Easy Bruising: No Nail changes: No H/o psoriasis: No Gastroenterology: Having several issues. Chroni cgastritis. Have not lost weight. Eats small amounts. Cramps. Respiratory: Dry cough/SOB: No Cardiovascular: Pain in chest: No Musculoskeletal: Per HPI Joint pain or swelling: No Prolonged morning stiffness: No Back pain or neck pain: No Muscle weakness: No Genitourinary: Vaginal dryness: No Rash/ulcers: No Neurological: Headaches: No Sensitivity or pain of hands and/or feet: No Psychiatry: Anxiety: No Depression: No Poor sleep: No H/o loss: YES 1, 12 weeks H/o thrombosis: No Increased susceptibility to infection: No PAST MEDICAL HISTORY Diagnosis Date Abnormal glandular [...] 1 yr old bilat inguinal hernia repair PAST SURGICAL HISTO (more content not included)... Normal [facility] Comprehensive metabolic 2000 panelon 07-22-2023 Albumin [Mass/Vol] 4.4 g/dL 3.9 - 4.9 g/dL [facility] ALP [Catalytic activity/Vol] 84 U/L 34 - 123 U/L [facility] ALT With P-5'-P [Catalytic activity/Vol] 22 U/L 7 - 38 U/L [facility] Anion gap [Moles/Vol] 12 mmol/L 9 - 18 mmol/L [facility] AST With P-5'-P [Catalytic activity/Vol] 23 U/L 13 - 35 U/L [facility] Bilirubin [Mass/Vol] 0.2 mg/dL 0.2 - 1 .3 mg/dL [facility] Calcium [Mass/Vol] 9.5 mg/dL 8.5 - 10. 2 mg/dL [facility] Chloride [Moles/Vol] 102 mmol/L 97 - 10 5 mmol/L [facility] CO2 [Moles/Vol] 23 mmol/L 22 - 30 mmol/L [facility] Creatinine [Mass/Vol] 0.68 mg/dL 0.58 - 0.96 mg/dL [facility] GFR/1.73 sq M.predicted among non-blacks MDRD (S/P/Bld) [Vol rate/Area] 114 mL/min/{1.73_m2} - PINF [facility] Comment on above: Estimated Glomerular Filtration Rate (eGFR) is calculated using the 2020 CKD-EPI creatinine equation. This equation utilizes serum creatinine, sex, and age as parameters. The creatinine assay has traceable calibration to isotope dilution-mass spectrometry. Refer to KDIGO guidelines for clinical interpretation. In patients with unstable renal function, e.g. those with acute kidney injury, the eGFR may not accurately reflect actual GFR. Glucose [Mass/Vol] 112 mg/dL High 74 - 99 mg/dL [facility] Comment on above: The [place] Diab[employer] s Association (ADA) provides guidance for cutoff values for fasting glucose and random glucose. The ADA defines fasting as no caloric intake for at least 8 hours. Fasting plasma glucose results between 100 to 125 [...] Standards of Medical Care in Diabetes 2016, [place] [employer]. Diabetes Care. 2016.39(Suppl 1). Interpretation and review of laboratory results Abnormal [facility] Potassium [Moles/Vol] 4.1 mmol/L 3.7 - 5.1 mmol/L [facility] Protein [Mass/Vol] 7.8 g/dL 6.3 - 8.0 g/dL [facility] Sodium [Moles/Vol] 137 mmol/L 136 - 144 mmol/L [facility] Urea nitrogen [Mass/Vol] 9 mg/dL 7 - 21 mg/dL [facility] Albumin [Mass/Vol] 4.4 g/dL Normal 3.9-4.9 [facility] Comment on above: Order Comment: Speci men Type: BLOOD SPECIMEN Ordering Facility: [facility] Address: [address] [place] [address] Performed By: #### 1 8323-6, XSVICTOR HUGO, 14878-2 #### [facility] CLIA [id number] [address] [place] [address] [place] ALP [Catalytic activity/Vol] 84 U/L Normal 34-123 [facility] Comment on above: Order Comment: Speci men Type: BLOOD SPECIMEN Ordering Facility: [facility] Address: [address] [place] [address] Performed By: #### 1 8323-6, XSVICTOR HUGO, 06481-4 #### [facility] CLIA [id number] [address] [place] [address] [place] ALT With P-5'-P [Catalytic activity/Vol] 22 U/L Normal 7-38 [facility] Comment on above: Order Comment: Speci men Type: BLOOD SPECIMEN Ordering Facility: [facility] Address: [address] [place] [address] Performed By: #### 1 8323-6, XSSAGuadalupe, 69296-2 #### [facility] CLIA [id number] [address] [place] [address] [place] Anion gap [Moles/Vol] 12 mmol/L Normal 9-18 [facility] Comment on above: Order Comment: Speci men Type: BLOOD SPECIMEN Ordering Facility: [facility] Address: [address] [place], [place] [address] Performed By: #### 1 8323-6, XSVICTOR HUGO, 32799-2 #### [facility] CLIA [id number] [address] [id number] [place] AST With P-5'-P [Catalytic activity/Vol] 23 U/L Normal 13-35 [facility] Comment on above: Order Comment: Speci men Type: BLOOD SPECIMEN Ordering Facility: [facility] Address: [address] [place] [address] Performed By: #### 1 8323-6, XSVICTOR HUGO, 64505-1 #### [facility] CLIA [id number] [address] [place] [address] [place] Bilirubin [Mass/Vol] 0.2 mg/dL Normal 0.2-1.3 [facility] Comment on above: Order Comment: Speci men Type: BLOOD SPECIMEN Ordering Facility: [facility] Address: [address] [place], [place] [address] Performed By: #### 1 8323-6, XSVICTOR HUGO, 75909-6 #### [facility] CLIA [id number] [address] [place] [address] [place] Calcium [Mass/Vol] 9.5 mg/dL Normal 8.5-10.2 [facility] Comment on above: Order Comment: Speci men Type: BLOOD SPECIMEN Ordering Facility: [facility] Address: [address] [id number] Performed By: #### 1 8323-6, XSSAB, 09461-4 #### [facility] CLIA [id number] [address] [place] [address] [place] Chloride [Moles/Vol] 102 mmol/L Normal 97-105 [facility] Comment on above: Order Comment: Speci men Type: BLOOD SPECIMEN Ordering Facility: [facility] Address: [address] [place] [address] Performed By: #### 1 8323-6, XSSAB, 47466-5 #### [facility] CLIA [id number] [address] [place] [address] [place] CO2 [Moles/Vol] 23 mmol/L Normal 22-30 [facility] Comment on above: Order Comment: Speci men Type: BLOOD SPECIMEN Ordering Facility: [facility] Address: [address] [place] [address] Performed By: #### 1 8323-6, XSSAB, 95530-7 #### [facility] CLIA [id number] [address] [place] [address] [place] Creatinine [Mass/Vol] 0.68 mg/dL Normal 0.58-0.96 [facility] Comment on above: Order Comment: Speci men Type: BLOOD SPECIMEN Ordering Facility: [facility] Address: [address] [place] [address] Performed By: #### 1 8323-6, XSSAB, 15833-7 #### [facility] CLIA [id number] [address] [place] [address] [place] Creatinine and Glomerular filtration rate.predicted panel (S/P/Bld) 114 mL/min/1.73m??? Normal >=60 [facility] Comment on above: Order Comment: Speci men Type: BLOOD SPECIMEN Ordering Facility: [facility] Address: [address] [place] [address] Result Comment: Mckenzie mated Glomerular Filtration Rate (eGFR) is calculated using the 2020 CKD-EPI creatinine equation. This equation utilizes serum creatinine, sex, and age as parameters. The creatinine assay has traceable calibration to isotope dilution-mass spectrometry. Refer to KDIGO guidelines for clinical interpretation. In patients with unstable renal function, e.g. those with acute kidney injury, the eGFR may not accurately reflect actual GFR. Performed By: #### 1 8323-6, XSSAB, 32674-2 #### [facility] CLIA [id number] [address] [place] [address] [place] Glucose [Mass/Vol] 112 mg/dL High 74-99 [facility] Comment on above: Order Comment: Ganesh wren Type: BLOOD SPECIMEN Ordering Facility: [facility] Address: [address] [place] [address] Result Comment: The [place] Diabetes Association (ADA) provides guidance for cutoff values for fasting glucose and random glucose. The ADA defines fasting as no caloric intake for at least 8 hours. Fasting plasma glucose results between 100 to 125 [...] Standards of Medical Care in Diabetes 2016, [place] Diabetes Association. Diabetes Care. 2016.39(Suppl 1). Performed By: #### 1 8323-6, XSSAB, 01151-8 #### [facility] CLIA [id number] [address] [place] [address] [place] Potassium [Moles/Vol] 4.1 mmol/L Normal 3.7-5.1 [facility] Comment on above: Order Comment: Ganesh wren Type: BLOOD SPECIMEN Ordering Facility: [facility] Address: [address] [place] [address] Performed By: #### 1 8323-6, XSSAB, 94994-8 #### [facility] CLIA [id number] [address] [place] [address] [place] Protein [Mass/Vol] 7.8 g/dL Normal 6.3-8.0 [facility] Comment on above: Order Comment: Ganesh wren Type: BLOOD SPECIMEN Ordering Facility: [facility] Address: [address] [place] [address] Performed By: #### 1 8323-6, XSSAB, 00584-9 #### [facility] CLIA [id number] [address] [place] [address] [place] Sodium [Moles/Vol] 137 mmol/L Normal 136-144 [facility] Comment on above: Order Comment: Speci men Type: BLOOD SPECIMEN Ordering Facility: [facility] Address: [address] [place] [address] Performed By: #### 1 8323-6, XSSAGuadalupe, 03209-6 #### [facility] CLIA [id number] [address] [place] [address] [place] Urea nitrogen [Mass/Vol] 9 mg/dL Normal 7-21 [facility] Comment on above: Order Comment: Speci men Type: BLOOD SPECIMEN Ordering Facility: [facility] Address: [address] [place] [address] Performed By: #### 1 8323-6, XSSAGuadalupe, 36585-8 #### [facility] CLIA [id number] [address] [place] [address] [place] Cyclic citrullinated peptide IgG Qnon 07-22-2023 CCP ANTIBODY IGG QUALITATIVE Negative Normal Negative [facility] Comment on above: Order Comment: Speci men Type: BLOOD SPECIMEN Ordering Facility: [facility] Address: [address] [place] [address] Performed By: #### 3 3935-8 #### [facility] CLIA [id number] [address] [place] [address] [place] DNA ANTIBODY DS BLDon 2023 DNA ANTIBODY 22 IU/mL Normal <=200 [facility] Comment on above: Order Comment: Speci men Type: BLOOD SPECIMEN Ordering Facility: [facility] Address: [address] [place] [address] Result Comment: Nega tive: <200 IU/mL Equivocal: 201-300 IU/mL Moderate Positive: 301-800 IU/mL Strong Positive: >801 IU/mL Performed By: #### 1 8323-6, XSSAB, 25772-9 #### [facility] CLIA [id number] [address] [place] [address] [place] DNA ANTIBODY QUALITATIVE INTERPRETATION Negative Normal Negative [facility] Comment on above: Order Comment: Speci men Type: BLOOD SPECIMEN Ordering Facility: [facility] Address: [address] [place] [address] Performed By: #### 1 8323-6, XSSAB, 96310-3 #### [facility] CLIA [id number] [address] [place] [address] [place] REINIER MACHINE SETTER SUPERVISOR Ab Ser-aCncon 2023 Ribonucleoprotein extractable nuclear Ab Qn (S) 0.2 AI Normal <1.0 [facility] Comment on above: Order Comment: Speci men Type: BLOOD SPECIMEN Ordering Facility: [facility] Address: [address] [place] [address] Performed By: #### 1 8323-6, XSSAB, 12438-8 #### [facility] CLIA [id number] [address] [place] [address] [place] REINIER SM IgG Ser-aCncon 2023 Blank extractable nuclear IgG Qn (S) <0.2 Normal <1.0 [facility] Comment on above: Order Comment: Speci men Type: BLOOD SPECIMEN Ordering Facility: [facility] Address: [address] [place] [address] Performed By: #### 1 8323-6, XSSAB, 69313-0 #### [facility] CLIA [id number] [address] [place] [address] [place] FERRITINon 07-22-2023 Ferritin [Mass/Vol] 137.0 ng/mL 14.7 - 2 05.1 ng/mL [facility] Ferritin SerPl-mCncon 2023 Ferritin [Mass/Vol] 137.0 ng/mL Normal 14.7-205.1 [facility] Comment on above: Order Comment: Speci men Type: BLOOD SPECIMEN Ordering Facility: [facility] Address: [address] [place] [address] Performed By: #### 1 8323-6, XSSAB, 07408-3 #### [facility] CLIA [id number] [address] [address] [place] Iron and Iron binding capaci ty panelon 07-22-2023 Iron [Mass/Vol] 59 ug/dL 41 - 186 ug/dL [facility] Iron binding capacity [Mass/Vol] 310 ug/dL 232 - 386 ug/dL [facility] Iron saturation [Mass fraction] 19.0 % 15.0 - 57.0 % [facility] Iron [Mass/Vol] 59 ug/dL Normal 41-186 [facility] Comment on above: Order Comment: Speci men Type: BLOOD SPECIMEN Ordering Facility: [facility] Address: [address] [place] [address] Performed By: #### 1 8323-6, XSSAB, 31145-1 #### [facility] CLIA [id number] [address] [place] [address] [place] Iron binding capacity [Mass/Vol] 310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 Rivera on 06-17-2023 Creatinine [Mass/Vol] 0.76 mg/dL 0.55-1.02 [facility] Comment on above: The validity of the calculated GFR & GFRAA in patients over 70 years has not been determined. Clinical correlation is essential. Serum or plasma urea nitroge n measurement (mass/volume)Ordered By: Ceci Rivera on 06-17-2023 Urea nitrogen [Mass/Vol] 8 mg/dL 7-18 [facility] Thin prep Papanicolaou smear with manual screeningOrdered By: Ceci Rivera on 06-17-2023 Thin prep Papanicolaou smear with manual screening 3.8 g/dL 3.2-5.0 [facility] Thin prep Papanicolaou smear with manual screening 26 U/L 15-37 [facility] Thin prep Papanicolaou smear with manual screening 5 5-15 [facility] CNPNon 06-04-2023 CNPN Telephone ([facility]) KAYA ARCE ([id number]) 1985 F FNS Date Time Provider Department 06/04/23 GRETTA DELONG [facility] During your visit today, we recorded the following information about you: Shane Damon 06/04/2023 10:10 AM Signed LVM with patient to call back and schedule appt, new consult referred by Dr. Thompson. Shane Damon Allergies As of Date: 06/04/2023 Noted Allergy Reaction EUCALYPTUS 06/07/2007 4 - [...] cold and clammy (subjective only) Date Reviewed: 05/25/2023 Reviewed by: Jet Mcmullen MA - Fully Assessed Reason for Visit: Appointment [186] Prescriptions as of 06/04/2023 - gabapentin (NEURONTIN) 100 mg capsule Take 2 capsules by mouth three times a day for 30 days. - loratadine (CLARITIN) 10 mg tablet Take 1 tablet by mouth every afternoon. - sucralfate (CARAFATE) 100 mg/mL suspension 10 ML ORALLY 4 TIMES PER DAY 1 HOUR BEFORE MEALS AND AT BEDTIME ON AN EMPTY STOMACH - famotidine (PEPCID) 40 mg tablet Take 1 tablet by mouth every afternoon. - nystatin (MYCOSTATIN) powder APPLY TO AFFECTED AREA TWICE DAILY. - tretinoin (RETIN-A) 0.05 % cream Apply pea-sized amount to entire face once nightly. Begin 3 times weekly and and gradually increase frequency to nightly as tolerated. - benzoyl peroxide (BENOXYL 10) 10 % lotn (Discontinued) Apply to affected area twice daily. - ibuprofen (MOTRIN) 600 mg tablet Take 1 tablet by mouth every 6 hours. Take with food. - acetaminophen (TYLENOL EXTRA STRENGTH) 500 mg tablet Take 2 tablets by mouth every 6 hours. - mesalamine (ROWASA) 4 gram/60 mL enema 4 g by RECTAL route daily at bedtime. - lidocaine (XYLOCAINE) 5 % ointment Apply to affected area as needed. - baclofen vaginal suppository 10 mg (CPD) Unwrap and inserty 1 Suppository vaginally once daily as directed. - EPINEPHrine (EPIPEN 2-SINCERE) 0.3 mg/0.3 mL auto-injector Inject 0.3 mL intramuscularly as needed (Inject in thigh as needed for anaphylaxis and call 911). GENERIC OKAY - cyanocobalamin, vitamin B-12, (VITAMIN B-12 ORAL) Take by mouth. - flurandrenolide (CORDRAN) 0.05 % lotion Apply to affected area twice daily. As needed. - ISOtretinoin (ACCUTANE) 20 mg capsule (Discontinued) Take 1 capsule by mouth once daily. - pantoprazole DR (PROTONIX) 40 mg tablet [...] tablets daily Problem List As Of Date 06/04/2023 Noted Resolved PAIN IN JOINT, LOWER LEG [M25.569] 12/11/2005 01/24/2008 Uncomplicated asthma [J45.909] 02/17/2006 CHRONIC RHINITIS [J31.0] 02/17/2006 Insulin resistance [E88.819] 02/17/2006 IBS (IRRITABLE BOWEL SYNDROME) [K58.9] 02/17/2006 ANAL FISSURE [K60.2] BENIGN NEOPLASM LG BOWEL [D12.6] RECTAL AND ANAL HEMORRHAGE [K62.5] 08/01/2008 ESOPHAGEAL REFLUX [K21.9] DEVIATED NASAL SEPTUM [J34.2] 07/12/2007 POLYCYSTIC OVARIES [E28.2] 11/11/2007 Urinary calculus, unspecified [N20.9] 12/22/2007 10/06/2017 IMPAIRED FASTING GLUCOSE [R73.01] 01/24/2008 ABN GLUCOSE-ANTEPARTUM [O99.810] 08/01/2008 THROMBOS HEMORRHOIDS NOS [K64.5] 03/24/2008 Routine general medical examination at [facility]*08/01/2008 11/21/2011 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 Normal [facility] MR Lower leg - left WO contr glo 06-02-2023 [facility] Bacteria identifiedon 2023 Bacteria identified Cx Nom (U) Test: Urine culture Specimen Source: Clean Catch/Voided Specimen Type: Urine Specimen Date: 05/25/2023 1:55 PM Result Date: 05/26/2023 11:58 PM Result Status: Final result Abnormal: No Resulting Lab: [facility] [address] [place] [address] CULTURE No significant growth Normal [facility] Comment on above: Performed By: #### 6 30-4 #### KATYA Rob ([id number]) [facility] ([facility]) [address] [place] [address] Urinalysis complete panel (U )on 05-25-2023 Appearance (U) Clear Normal Clear [facility] Comment on above: Performed By: #### 2 4356-8 #### KATYA Rob ([id number]) [facility] ([facility]) [address] [place] [address]32 Bilirubin (U) [Mass/Vol] Negative Normal NEGATIVE [facility] Comment on above: Performed By: #### 2 4356-8 #### KATYA Rob ([id number]) [facility] ([facility]) [address] [place] [address] 17714 Color (U) Light-Yellow Normal Light-Yellow , Yellow, Dark-Yellow [facility] Comment on above: Performed By: #### 2 4356-8 #### KATYA Rob ([id number]) [facility] ([facility]) [address] [place] [address] 79262 Glucose Auto test strip (U) [Mass/Vol] Normal Normal Normal [facility] Comment on above: Performed By: #### 2 4356-8 #### KATYA Rob ([id number]) [facility] ([facility]) [address] [place] [address] 49336 Ketones (U) [Mass/Vol] Negative Normal NEGATIVE [facility] Comment on above: Performed By: #### 2 4356-8 #### KATYA Rob ([id number]) [facility] ([facility]) [address] [place] [address] 41278 Leukocyte esterase Auto test strip Ql (U) Negative Normal NEGATIVE [facility] Comment on above: Performed By: #### 2 4356-8 #### KATYA Rob ([id number]) [facility] ([facility]) [address] [place] [address] 87505 Nitrite Auto test strip Ql (U) Negative Normal NEGATIVE [facility] Comment on above: Performed By: #### 2 4356-8 #### KATYA Rob ([id number]) [facility] ([facility]) [address] [place] [address] 99610 pH (U) 5.5 [pH] Normal 5.0, 5.5, 6.0, 6.5, 7.0, 7.5, 8.0 [facility] Comment on above: Performed By: #### 2 4356-8 #### KATYA Rob ([id number]) [facility] ([facility]) [address] [place] [address] 87080 Protein (U) [Mass/Vol] Negative Normal NEGAT PHIL, 10 (TRACE), 20 (TRACE) [facility] Comment on above: Performed By: #### 2 4356-8 #### KATYA Rob ([id number]) [facility] ([facility]) [address] [place] [address] 97605 RBC (U) [#/Vol] Negative Normal NEGATIVE [facility] Comment on above: Performed By: #### 2 4356-8 #### KATYA Rob ([id number]) [facility] ([facility]) [address] [place] [address] Specific gravity (U) [Rel density] 1.010 Normal 1.005-1.035 [facility] Comment on above: Performed By: #### 2 4356-8 #### KATYA CHOI L ([id number]) [facility] ([facility]) [address] [place] [address] Urobilinogen (U) [Mass/Vol] Normal Normal Normal [facility] Comment on above: Performed By: #### 2 4356-8 #### KATYA CHOI L ([id number]) [facility] ([facility]) [id number] [place] [address] Bilirubin Test strip Ql (U)O rdered By: Rudy Branch on 05-24-2023 Bilirubin Ql (U) Negative Negative [facility] CALCULI (STONE) ANALYSISon 0 05-24-2023 Appearance (Stone) See Note Normal [facility] Comment on above: Result Comment: Spec imen consists of one hassan calculus. The total weight is 6 mg. Performed By: #### C ALCU #### [facility]) ([id number]) [address] [place] [address] Composition Nom (Stone) See Note [facility] Comment on above: Result Comment: Calc cedric composed primarily of calcium oxalate monohydrate. INTERPRETIVE INFORMATION: Calculi (Stone) analysis Calculi are the products of physiological processes that yield crystalline compounds in a matrix of biological compounds and blood. Matrix components are not reported. The clinically significant crystalline components identified in calculi specimens are reported. Gross description may not be consistent with composition determined by FTIR analysis. Performed By: [employer] [address] [place] [address] Mandarin Teacher: Kyle León MD, PhD CLIA Number: [id number] Performed By: #### C ALCU #### [employer] ([id number]) [address] [place] [address] Specimen weight (Unsp spec) 6 mg [facility] Comment on above: Performed By: #### C ALCU #### [facility]) ([id number]) [address] [place] [address] Culture, urineOrdered By: Krzysztof Branch on 05-24-2023 Bacteria identified Cx Nom (U) Culture exhibits no growth. [facility] Bacteria identified Cx Nom (U) Culture exhibits no growth. [facility] Ketones Test strip Ql (U)Ord ered By: Rudy Branch on 05-24-2023 Ketones Ql (U) 5 mg/dl Negative [facility] Nitrite Test strip Ql (U)Ord ered By: Rudy Branch on 05-24-2023 Nitrite Ql (U) Negative Negative [facility] No Panel InformationOrdered By: Rudy Branch on 05-24-2023 Insulin Level 82.2 mU/L 2.6-37.6 [facility] Protein Test strip Ql (U)Ord ered By: Rudy Branch on 05-24-2023 Protein Ql (U) Negative Negative [facility] Stool pancreatic elastase me asurement (mass/mass)Ordered By: Rudy Branch on 05-24-2023 Elastase.pancreatic (Stl) [Mass/Mass] > 500 >200 [facility] Comment on above: Result Units: ug Daniela st./g Severe Pancreatic Insufficiency: <100 Moderate Pancreatic Insufficiency: 100 - 200 Normal: >200Performed at: BN - [facility] [address] [id number] Director: Miguel Fay MD, Phone: [phone] Urine blood detectionOrdered By: Rudy Branch on 05-24-2023 RBC Ql (U) Negative Negative [facility] Urine clarityOrdered By: Yulissa Branch on 05-24-2023 Clarity (U) Sl. Cloudy Clear [facility] Urine color determinationOrd ered By: Rudy Branch on 05-24-2023 Color (U) Yellow Yellow [facility] Urine glucose detectionOrder ed By: Rudy Branch on 05-24-2023 Glucose Ql (U) Normal mg/dl Normal [facility] Urine leukocyte esterase det ection by dipstickOrdered By: Rudy Branch on 05-24-2023 Leukocyte esterase Test strip Ql (U) Negative Negative [facility] Urine pHOrdered By: Rudy Li isiahmyranda on 05-24-2023 pH (U) 5.0 [pH] 5.0 - 8.0 [facility] Urine specific gravity measu rementOrdered By: Rudy Branch on 05-24-2023 Specific gravity (U) [Rel density] 1.020 1.002-1.030 [facility] Urine urobilinogen measureme ntOrdered By: Rudy Branch on 05-24-2023 Urobilinogen Ql (U) Normal mg/dl Normal [facility] Whole blood hemoglobin A1c/t otal hemoglobin ratio (mass fraction)Ordered By: Rudy Branch on 05-24-2023 HbA1c (Bld) [Mass fraction] 5.9 % 3.8-5.6 [facility] Comment on above: Normal < 5.7 % Predi abetic 5.7 - 6.4 % Diabetic >or= 6.5 % Please note range changes. CT UROGRAPHY WITH 3D VOLUME RENDERED IMAGINGon 05-07-2023 CT UROGRAPHY WITH 3D VOLUME RENDERED IMAGING Interpreted By: Harley Valenzuela, STUDY: CT UROGRAPHY WITH 3D VOLUME RENDERED IMAGING; 05/07/2023 5:21 pm INDICATION: Signs/Symptoms:gross hematuria, left flank pain. COMPARISON: CT abdomen pelvis dated September 23, 2022. ACCESSION NUMBER(S): [id number] ORDERING CLINICIAN: ROSSY LAINEZ TECHNIQUE: Oral contrast was not administered. CT abdomen and pelvis was obtained without IV contrast. Subsequently 75 ml Omnipaque [address] of the Abdomen and Pelvis with intravenous contrast was performed during the nephrographic and delayed phases of contrast. Axial, sagittal and coronal reformatted images were reviewed. All CT examinations are performed with 1 or more of the following dose reduction techniques: Automated exposure control, adjustment of mA and/or kv according to patient's size, or use of iterative reconstruction techniques. FINDINGS: Lower Chest: Unremarkable. Abdomen: Liver: There is diffuse decreased attenuation of the liver suggesting diffuse fatty infiltration. Bile Ducts: Normal caliber. Gallbladder: Surgical clips are noted in the gallbladder fossa Pancreas: Unremarkable. Spleen: Unremarkable. Adrenals: Normal. Kidneys: Nonobstructive calculi are noted involving the bilateral kidneys, calculus involving the left kidney measures approximately 4 mm. The largest on the right measures approximately 3 mm. Pelvis: Right adnexal structure most consistent with right ovary is again noted measuring approximately 3.3 by 2.9 cm not significantly changed compared to previous exam. Uterus and left ovary are not visualized, consistent with clinical history. Bladder: Unremarkable. No filling defects are identified within the opacified bladder. No bladder wall thickening is identified. Bowel: No bowel wall thickening or abnormal distention to suggest bowel obstruction. Mesenteric Lymph Nodes: No enlarged mesenteric lymph nodes. Peritoneum: There is no free fluid or free intraperitoneal gas. There are no localized fluid collections. Vessels: Unremarkable Retroperitoneum: No retroperitoneal adenopathy. Abdominal Wall: Unremarkable. Bones: No acute bony abnormalities. IMPRESSION: Nonobstructive calculi involving the bilateral kidneys. MACRO: none Signed by: Harley Valenzuela 05/08/2023 2:01 PM Dictation workstation: [id number] [facility] No Panel Informationon 05-03 Stool Calprotectin 137 ug/g 0-120 [facility] Comment on above: Concentration Interp retation Follow-Up< 5 - 50 ug/g Normal None>50 -120 ug/g Borderline Re-evaluate in 4-6 weeks >120 ug/g Abnormal Repeat as clinically indicatedPerformed at: - [facility] [id number] Director: Miguel Fay MD, Phone: [phone] Basophil percentageon 2023 Bilirubin [Mass/Vol] 0.20 mg/dL 0.20-1.00 [facility] Comment on above: For patients on eltr ombopag therapy, use of Dimension [employer] TBIL is not recommended. Chloride [Moles/Vol] 107 mmol/L 98-107 [facility] Glucose [Mass/Vol] 158 mg/dL 74-106 [facility] Comment on above: Fasting Glucose resu lt greater than or equal to 126 mg/dL suggests DIABETES MELLITUS per A.D.A. criteria. Hemoglobin (Bld) [Mass/Vol] 12.5 g/dL 12.0-15.0 [facility] Potassium [Moles/Vol] 3.8 mmol/L 3.5-5.1 [facility] Protein [Mass/Vol] 7.4 g/dL 6.4-8.2 [facility] Sodium [Moles/Vol] 139 mmol/L 136-145 [facility] WBC (Bld) [#/Vol] 7.9 10*3/uL 4.4-11.0 [facility] Determination of erythrocyte mean corpuscular volume (MCV)on 04-23-2023 MCV (RBC) [Entitic vol] 86.7 fL 81-99 [facility] Erythrocyte distribution wid th ratioon 04-23-2023 Erythrocyte distribution width (RBC) [Ratio] 13.4 % 11.6-14.6 [facility] Erythrocyte distribution wid th standard deviationon 04-23-2023 Erythrocyte distribution width (RBC) [Entitic vol] 42.3 fL 35.1-43.9 [facility] Erythrocyte sedimentation ra dante 04-23-2023 ESR (Bld) [Velocity] 5 mm/h 0-30 [facility] Hematocrit Auto (Bld) [Volum e fraction]on 04-23-2023 Hematocrit (Bld) [Volume fraction] 39.2 % 37-47 [facility] Iron measurement (mass/mass) on 04-23-2023 Iron (Unsp spec) [Mass/Mass] 51 ug/dL 50-170 [facility] Laboratory - Chemistry and C hemistry - challengeon 04-23-2023 Albumin/Globulin [Mass ratio] 0.8 {ratio} 0.9-2.4 [facility] ALP [Catalytic activity/Vol] 75 U/L 45-117 [facility] ALT [Catalytic activity/Vol] 47 U/L 13-56 [facility] CO2 [Moles/Vol] 29.0 mmol/L 21.0-32.0 [facility] Cobalamin (Vitamin B12) [Mass/Vol] 730 pg/mL 211-911 [facility] Globulin (S) [Mass/Vol] 4.0 g/dL 2.2-4.2 [facility] Urea nitrogen/Creatinine [Mass ratio] 9.3 mg/mg 10-20 [facility] Laboratory - Hematology and Cell countson 04-23-2023 MCH (RBC) [Entitic mass] 27.7 pg 27.0-32.0 [facility] MCHC (RBC) [Mass/Vol] 31.9 g/dL 32-36 [facility] Platelets (Bld) [#/Vol] 366 10*3/uL 150-450 [facility] No Panel Informationon 04-23 C-Reactive Protein Extended Range 11.90 mg/L 0.0-3.0 [facility] Comment on above: C-Reactive Protein ( CRP) provides useful information for thediagnosis, therapy and monitoring of inflammatory processesand associated diseases. For the evaluation of Relative Riskfor Cardiovascular Disease, a High Sensitivity CRP (HSCRP)should be ordered. Estimated GFR (MDRD) Amer 110 mL/min >60 [facility] Comment on above: GFR Calc Estimated GFR (MDRD) Non-Af Amer 91 mL/min >60 [facility] Comment on above: Non- GFR Calc Folate 28.30 ng/mL 3.1-55.4 [facility] Comment on above: Slight Hemolysis, Re sult may be falsely increased. Total Iron Binding Capacity 307 ug/dL 250-450 [facility] Vitamin D 25-Hydroxy 32.9 ng/mL [facility] Comment on above: Vitamin D 25(OH) Sta tus Range Deficiency <20 ng/mL (50nmol/L) Insufficiency 20 - 30 ng/mL (50 - 75 nmol/L) Sufficiency 30 - 100 ng/mL (75 - 250 nmol/L) Toxicity >100 ng/mL (>250 nmol/L) Platelet mean volume Arias-Ec ker (Bld) [Entitic vol]on 04-23-2023 Platelet mean volume (Bld) [Entitic vol] 9.6 fL 6.2-12.0 [facility] RBC Auto (Bld) [#/Vol]on RBC (Bld) [#/Vol] 4.52 10*6/uL 4.2-5.4 [facility] Serum or plasma calcium kaylan urement (mass/volume)on 04-23-2023 Calcium [Mass/Vol] 8.9 mg/dL 8.5-10.1 [facility] Serum or plasma creatinine m easurement (mass/volume)on 04-23-2023 Creatinine [Mass/Vol] 0.75 mg/dL 0.55-1.02 [facility] Comment on above: The validity of the calculated GFR & GFRAA in patients over 70 years has not been determined. Clinical correlation is essential. Serum or plasma iron saturat ion measurement (mass fraction)on 04-23-2023 Iron saturation [Mass fraction] 16.6 % 15.0-55.0 [facility] Serum or plasma urea nitroge n measurement (mass/volume)on 04-23-2023 Urea nitrogen [Mass/Vol] 7 mg/dL 7-18 [facility] Thin prep Papanicolaou smear with manual screeningon 04-23-2023 Thin prep Papanicolaou smear with manual screening 3.4 g/dL 3.2-5.0 [facility] Thin prep Papanicolaou smear with manual screening 28 U/L 15-37 [facility] Thin prep Papanicolaou smear with manual screening 3 5-15 [facility] CNOVon 04-22-2023 CNOV Office Visit (NEAGCL M) KAYA ARCE ([id number]) 1985 [facility] Date Time Provider Department 04/22/23 11:00 AM SERJIO THOMPSON NEAGCLM During your visit today, we recorded the following information about you: Pulse Respiration Blood pressure Weight 82/minute 16/minute 102/69 87.1 kg Serjio Thompson MD 04/22/2023 11:15 AM Signed NEUROSURGERY FOLLOW UP OFFICE NOTE Serjio Thompson MD [facility] Date of visit: April 22, 2023 Patient Name: Ms.Ashley Alexandro Arce Date of : 1985 Current Age: [age] year old Sex: female MRN/E# [id number] Last Office Visit: 03/23/2023 Chief Complaint: Patient presents with: Established Patient [...] follow up if no symptom relief. She presented to the office on 02/25/2023 with [...] to tachycardia according to reports. She was last seen in the office on 03/23/2023 with continued symptoms. Neck pain with BUE numbness and tingling in the last 3 digits on both hands. She noted new pain in her low left back that radiated into her hip, gluteal aspect, and the groin along with numbness to the left heel, ankle and dorsal left foot. She had been ill and treated in the ED 3 times, and had to cancel her appointment with pain management. Imaging showed moderate-sized disc herniation at C6-7. It was believed that this disc herniation was responsible for her upper extremity symptoms, but not thought to be causing her lower extremity symptoms. She was advised to see pain management to consider injections. She was started on Gabapentin, and she was to follow up in 4 weeks time, to evaluate her progress, prompting her visit today. The patient presents to the office today noting that her left leg pain has improved since her last visit and is not as bothersome to her. In the past week she has been experiencing posterior neck pain that she describes as sharp, pressure with intermittent numbness and tingling. She notes this to intermittently radiated to bilateral upper extremities. She has not been able to follow up with pain management. She wants to avoid surgery if possible, wanting to try maybe chiropractic or massage therapy. She is here for evaluation and plan of care. Symptoms: as noted above PREVIOUS CONSERVATIVE TREATMENTS: PT - 01/20/2023, 01/26/2023(intolerance due to tachycardia) 02/01/2023, 02/15/2023 Pain management - appointment scheduled for 03/19/2023 - canceled (no reschedule) Tylenol PREVIOUS SURGERY: None PAIN EVALUATION 04/22/2023 1038 Pain Level: 5 Pain Location: Neck Description: Aching;Stabbing Duration Amount of Time: 1 Duration Units: Weeks Frequency: Continuous Intervention/Comfort measure: Medication PAST MEDICAL HISTORY Diagnosis Date Abnormal glandular [...] of obstruction or gangrene Elevated lipids Endometriosis (more content not included)... Normal [facility] Non-office services specialist cytology studyon Non-gynecological cytology method study Pathology report.total SEE COMMENT Non-gynecologic Cytology Case: [id number] Authorizing Provider: Rossy Lainez APRN-MARY Collected: 04/15/2023 1220 Ordering Location: [place] [employer] Received: 04/15/2023 1220 Building 1 Pathologist: Selwyn Campuzano MD Specimen: URINE CLEAN CATCH Path report.final diagnosis SEE COMMENT A. URINE CLEAN CATCH - URINE CLEAN CATCH No malignant cells identified Specimen consists predominately of mature squamous cells. Laboratory comment SEE COMMENT Slide(s) initially screened by LOKI James at [facility] [address] [facility] [id number] By the signature on this report, the individual or group listed as making the Final Interpretation/Diagnos is certifies that they have reviewed this case. Path report.relevant Hx gross hematuria, hx cancer Path report.gross observation SEE COMMENT A. URINE CLEAN CATCH. Received 50 ml pale yellow clear fluid with particles in sterile cup. A total volume of 50 ml has been sent for cytological analysis to the cytology department at [facility]. Laboratory comment SEE COMMENT [id number] Only (No Block) A1-1Pap Stain NGYN ThinPrep Normal [facility] POCT UA Automated manually r esultedon 04-15-2023 Appearance (U) Clear Clear [facility] Work Phone: Glucose Test strip (U) [Mass/Vol] Negative NEGATIVE mg/dl [facility] Work Phone: Hemoglobin Ql (U) Negative NEGATIVE [facility] Work Phone: Interpretation and review of laboratory results Normal [facility] Work Phone: Leukocyte esterase Test strip Ql (U) Negative NEGATIVE [facility] Work Phone: Nitrite Ql (U) Negative NEGATIVE [facility] Work Phone: pH (U) 6.5 [pH] No Reference Range Established [facility] Work Phone: POC Bilirubin, Urine Negative NEGATIVE [facility]: POC Color, Urine Yellow Straw, Yellow, Light-Yellow [facility] Work Phone: POC Ketones, Urine Negative NEGATIVE mg/dl [facility] Work Phone: POC Protein, Urine Negative NEGATIVE, 30 (1+) mg/dl [facility] Work Phone: POC Specific [place], Urine 1.010 1.005 - 1.035 [facility] Work Phone: POC Urobilinogen, Urine 0.2 0.2, 1.0 EU/DL [facility] Work Phone: [facility] Work Phone: Post-Void Residualon 024 Interpretation and review of laboratory results Normal [facility] Work Phone: PVR 0. [facility] Work Phone: [facility] Work Phone: US RENAL COMPLETEon 04-08-19 24 US RENAL COMPLETE Interpreted By: Javon Bishop, STUDY: US RENAL COMPLETE; 04/08/2023 3:10 pm INDICATION: Signs/Symptoms:hx of kidney stones, new acute pelvic pain. COMPARISON: None ACCESSION NUMBER(S): [id number] ORDERING CLINICIAN: CANELO PINA TECHNIQUE: Multiple images of the kidneys were obtained . FINDINGS: RIGHT KIDNEY: The right kidney measures 10.6 cm in length. The renal cortical echogenicity is within normal limits. No hydronephrosis is present. No evidence of nephrolithiasis. . LEFT KIDNEY: The left kidney measures 10.3 cm in length. The renal cortical echogenicity is within normal limits. No hydronephrosis is present. Nonobstructing midpole calculus measuring up to 5 mm.. BLADDER: Grossly unremarkable. There is incidental note made of a small right ovarian cyst or follicle measuring up to 1.8 x 1.2 x 1.5 cm. IMPRESSION: Nonobstructing left-sided nephrolithiasis. Signed by: Javon Bishop 04/09/2023 2:03 PM Dictation workstation: [id number] [facility] Bacteria identifiedon 2023 Bacteria identified Cx Nom (U) Test: Urine Culture Specimen Source: Clean Catch/Voided Specimen Type: Urine Specimen Date: 04/06/2023 11:28 AM Result Date: 04/07/2023 3:39 PM Result Status: Final result Abnormal: No Resulting Lab: [facility] [address] [place] [address] CULTURE No significant growth [facility] Comment on above: Performed By: #### 6 30-4 #### KATYA Rob ([id number]) [facility] ([facility]) [address] [place] [id number] Cancer Ag 125on 04-06-2023 Cancer Ag 125 Qn 14.0 [arb'U]/mL Normal 0.0-30.2 [facility] Comment on above: Order Comment: CA 12 5 testing is performed by chemiluminescent immunoassay using the [employer]. Values obtained with different analytic methods cannot be used interchangeably. Serum CA 125 measurement is intended for use as an aid in monitoring patients previously treated for ovarian cancer. This assay is not intended for screening or diagnosis of cancer in the general population. The results must not be used as the sole means for clinical diagnosis or patient management decisions. Performed By: #### 1 0334-1 #### KATYA Rob ([id number]) [facility] ([facility]) [address] [place] [address] CNOVon 03-23-2023 CNOV Office Visit (NEAGCL M) KAYA ARCE ([id number]) 1985 [facility] Date Time Provider Department 03/23/23 10:00 AM SERJIO THOMPSON During your visit today, we recorded the following information about you: Pulse Respiration Blood pressure Weight 94/minute 16/minute 114/79 85.8 kg Height 1.6 m Serjio Thompson MD 03/23/2023 10:40 AM Signed NEUROSURGERY FOLLOW UP OFFICE NOTE Serjio Thompson MD [facility] Date of visit: March 23, 2023 Patient Name: Ms.Ashley Alexandro Arce Date of : 1985 Current Age: [age] year old Sex: female MRN/E# [id number] Last Office Visit: 03/08/2023 Chief Complaint: Patient [...] menses Kidney stones Lupus (HCC) Lyme disease Numbnes (more content not included)... Normal [facility] .Auto Diffon 03-14-2023 Basophil, Absolute 0.0 10 3/mcL Normal 0.0-0.2 [facility] ([place]) Comment on above: Performed By: #### M PATRICE, BMP, GFR, CBC, ADIFF, ANEU #### [id number] [place], [place] [address] Basophils/100 WBC (Bld) 0.1 % Normal 0.0-2.5 [facility] ([place]) Comment on above: Performed By: #### M DW, BMP, GFR, CBC, ADIFF, ANEU #### [address] [address] Eosinophil, Absolute 0.1 10 3/mcL Normal 0.0-0.4 [facility] ([place]) Comment on above: Performed By: #### M DW, BMP, GFR, CBC, ADIFF, ANEU #### [address] [address] Eosinophils/100 WBC (Bld) 1.1 % Normal 0.0-7.0 [facility] ([place] Comment on above: Performed By: #### M DW, BMP, GFR, CBC, ADIFF, ANEU #### [address] [address] Lymphocyte, Absolute 1.3 10 3/mcL Normal 0.8-3.9 [facility] ([place]) Comment on above: Performed By: #### M DW, BMP, GFR, CBC, ADIFF, ANEU #### [address] [address] Lymphocytes/100 WBC (Bld) 14.8 % Normal 10.0-50.0 [facility] ([place]) Comment on above: Performed By: #### M DW, BMP, GFR, CBC, ADIFF, ANEU #### [address] [address] Monocyte, Absolute 0.4 10 3/mcL Normal 0.2-1.0 [facility] ([place]) Comment on above: Performed By: #### M DW, BMP, GFR, CBC, ADIFF, ANEU #### [address] [address] Monocytes/100 WBC (Bld) 5.5 % Normal 1.7-13.0 [facility] ([place]) Comment on above: Performed By: #### M DW, BMP, GFR, CBC, ADIFF, ANEU #### [address] [address] Neutrophils/100 WBC (Bld) 78.2 % Normal 37.0-80.0 [facility] ([place]) Comment on above: Performed By: #### M DW, BMP, GFR, CBC, ADIFF, ANEU #### [address] [address] .GFRon 03-14-2023 GFR Non- 72 ml/min/1.73sqm Normal [facility] ([place]) Comment on above: Result Comment: GFR Population mean for , [...] 15 mL/min/1.73 square meters Performed By: #### M DW, BMP, GFR, CBC, ADIFF, ANEU #### [address] [address] GFR 88 ml/min/1.73sqm Normal [facility] ([place]) Comment on above: Result Comment: GFR Population mean for , [...] 15 mL/min/1.73 square meters Performed By: #### M DW, BMP, GFR, CBC, ADIFF, ANEU #### [address] [address] .MDWon 03-14-2023 Monocyte Distribution Width Not tested Normal 0.00-20.00 [facility] ([place]) Comment on above: Result Comment: MDW testing unable to be performed on [id number] instrumentation. Performed By: #### M DW, BMP, GFR, CBC, ADIFF, ANEU #### [address] [address] .Morphon 03-14-2023 Platelet Estimate Normal Normal [facility] ([place]) Comment on above: Performed By: #### M DW, BMP, GFR, CBC, ADIFF, ANEU #### [address] [address] .NEUABSon 03-14-2023 Neutrophil, Absolute 6.9 10 3/mcL High 2.9-6.2 [facility] ([place]) Comment on above: Performed By: #### M DW, BMP, GFR, CBC, ADIFF, ANEU #### [address] [address] BMPon 03-14-2023 BUN/Creatinine Ratio 6 ratio Low 7-27 [facility] ([place]) Comment on above: Performed By: #### M DW, BMP, GFR, CBC, ADIFF, ANEU #### [address] [address] Calcium [Mass/Vol] 8.8 mg/dL Normal 8.4-10.2 [facility] ([place]) Comment on above: Performed By: #### M DW, BMP, GFR, CBC, ADIFF, ANEU #### [address] [address] Chloride [Moles/Vol] 104 mmol/L Normal 98-107 [facility] ([place]) Comment on above: Performed By: #### M DW, BMP, GFR, CBC, ADIFF, ANEU #### [address] [address] CO2 [Moles/Vol] 24 mmol/L Normal 22-29 [facility] ([place]) Comment on above: Performed By: #### M DW, BMP, GFR, CBC, ADIFF, ANEU #### [place] [address] [place], [place] [address] Creatinine [Mass/Vol] 0.87 mg/dL Normal 0.55-1.02 [facility] ([place]) Comment on above: Performed By: #### M DW, BMP, GFR, CBC, ADIFF, ANEU #### [address] [address] Electrolyte Balance 10.0 mEq/L Normal 4.0-15.0 [facility] ([place]) Comment on above: Performed By: #### M DW, BMP, GFR, CBC, ADIFF, ANEU #### [address] [address] Glucose [Mass/Vol] 134 mg/dL High 70-105 [facility] ([place]) Comment on above: Performed By: #### M DW, BMP, GFR, CBC, ADIFF, ANEU #### [address] [address] Potassium [Moles/Vol] 3.8 mmol/L Normal 3.5-5.1 [facility] ([place]) Comment on above: Performed By: #### M DW, BMP, GFR, CBC, ADIFF, ANEU #### [address] [address] Sodium [Moles/Vol] 138 mmol/L Normal 136-145 [facility] ([place]) Comment on above: Performed By: #### M DW, BMP, GFR, CBC, ADIFF, ANEU #### [address] [address] Urea nitrogen [Mass/Vol] 5 mg/dL Low 7-18 [facility] ([place]) Comment on above: Performed By: #### M DW, BMP, GFR, CBC, ADIFF, ANEU #### [address] [address] CBCon 03-14-2023 Erythrocyte distribution width (RBC) [Ratio] 13.4 % Normal 11.5-14.5 [facility] ([place]) Comment on above: Performed By: #### M DW, BMP, GFR, CBC, ADIFF, ANEU #### [address] [address] Hematocrit (Bld) [Volume fraction] 37.1 % Normal 37.0-47.0 [facility] ([place]) Comment on above: Performed By: #### M DW, BMP, GFR, CBC, ADIFF, ANEU #### [address] [address] Hgb 12.5 G/dL Normal 12.0-16.0 [facility] ([place]) Comment on above: Performed By: #### M DW, BMP, GFR, CBC, ADIFF, ANEU #### [address] [address] MCH (RBC) [Entitic mass] 28.0 pg Normal 27.0-31.2 [facility] ([place]) Comment on above: Performed By: #### M DW, BMP, GFR, CBC, ADIFF, ANEU #### [place] [address] MCHC 33.7 G/dL Normal 33.0-37.0 [facility] ([place]) Comment on above: Performed By: #### M DW, BMP, GFR, CBC, ADIFF, ANEU #### [place] [address] MCV (RBC) [Entitic vol] 82.9 fL Normal 80.0-94.0 [facility] ([place]) Comment on above: Performed By: #### M DW, BMP, GFR, CBC, ADIFF, ANEU #### [address] [address] Platelet 214 10 3/mcL Normal 130-400 [facility] ([place]) Comment on above: Performed By: #### M DW, BMP, GFR, CBC, ADIFF, ANEU #### [address] [address] Platelet mean volume (Bld) [Entitic vol] 7.3 fL Low 7.4-10.4 [facility] ([place]) Comment on above: Performed By: #### M DW, BMP, GFR, CBC, ADIFF, ANEU #### [address] [place], [place] [address] RBC 4.47 10 6/mcL Normal 4.20-5.40 [facility] ([place]) Comment on above: Performed By: #### M DW, BMP, GFR, CBC, ADIFF, ANEU #### [address] [place], [place] [address] WBC 8.8 10 3/mcL Normal 4.6-10.8 [facility] ([place]) Comment on above: Performed By: #### M DW, BMP, GFR, CBC, ADIFF, ANEU #### [address] [place] [id number] [place], [place] [address] LABORATORYOrdered By: SYSTEM SYSTEM on 03-14-2023 Basophil, Absolute 0.0 103/mcL Normal 0.0 - 0.2 10^3/mcL AO Workflow SS Basophils/100 WBC (Bld) 0.1 % Normal 0.0 - 2.5 % AO Workflow SS Calcium [Mass/Vol] 8.8 mg/dL Normal 8.4 - 10. 2 mg/dL AO ADM SS Chloride [Moles/Vol] 104 mmol/L Normal 98 - 10 7 mmol/L AO ADM SS CO2 [Moles/Vol] 24 mmol/L Normal 22 - 29 mmol/L AO ADM SS Creatinine [Mass/Vol] 0.87 mg/dL Normal 0.55 - 1.02 mg/dL AO ADM SS Electrolyte Balance 10.0 mEq/L Normal 4.0 - 15 .0 mEq/L AO ADM SS Eosinophil, Absolute 0.1 103/mcL Normal 0.0 - 0 .4 10^3/mcL AO Workflow SS Eosinophils/100 WBC (Bld) 1.1 % Normal 0.0 - 7.0 % AO Workflow SS Erythrocyte distribution width (RBC) [Ratio] 13.4 % Normal 11.5 - 14.5 % AO Workflow SS GFR/1.73 sq M.predicted among blacks MDRD (S/P/Bld) [Vol rate/Area] 88 ml/min/1.73sqm Invalid Interpretation Code AO Chemistry S Comment on above: Interpretive Data: GFR Population mean for , Non- Americans Ages 20-29 = 116 mL/min/1.73 sq.m. Ages 30-39 = 107 mL/min/1.73 sq.m. Ages 40-49 = 99 mL/min/1.73 sq.m. Ages 50-59 = 93 mL/min/1.73 sq.m. Ages 60-69 = 85 mL/min/1.73 sq.m. Ages 70+ = 75 mL/min/1.73 sq.m. Chronic Kidney Disease: Less than 60 mL/min/1.73 square meters End Stage Renal Disease: Less than 15 mL/min/1.73 square meters GFR/1.73 sq M.predicted among non-blacks MDRD (S/P/Bld) [Vol rate/Area] 72 ml/min/1.73sqm Invalid Interpretation Code AO Chemistry S Comment on above: Interpretive Data: GFR Population mean for , Non- Americans Ages 20-29 = 116 mL/min/1.73 sq.m. Ages 30-39 = 107 mL/min/1.73 sq.m. Ages 40-49 = 99 mL/min/1.73 sq.m. Ages 50-59 = 93 mL/min/1.73 sq.m. Ages 60-69 = 85 mL/min/1.73 sq.m. Ages 70+ = 75 mL/min/1.73 sq.m. Chronic Kidney Disease: Less than 60 mL/min/1.73 square meters End Stage Renal Disease: Less than 15 mL/min/1.73 square meters Glucose [Mass/Vol] 134 mg/dL High 70 - 105 mg/dL AO ADM SS Hematocrit (Bld) [Volume fraction] 37.1 % Normal 37.0 - 47.0 % AO Workflow SS Hemoglobin (Bld) [Mass/Vol] 12.5 G/dL Normal 12.0 - 16.0 G/dL AO Workflow SS Lymphocyte, Absolute 1.3 103/mcL Normal 0.8 - 3 .9 10^3/mcL AO Workflow SS Lymphocytes/100 WBC (Bld) 14.8 % Normal 10.0 - 50.0 % AO Workflow SS MCH (RBC) [Entitic mass] 28.0 pg Normal 27.0 - 31.2 pg AO Workflow SS MCHC 33.7 G/dL Normal 33.0 - 37.0 G/dL AO Workflow SS MCV (RBC) [Entitic vol] 82.9 fL Normal 80.0 - 94.0 fL AO Workflow SS Monocyte, Absolute 0.4 103/mcL Normal 0.2 - 1.0 10^3/mcL AO Workflow SS Monocytes/100 WBC (Bld) 5.5 % Normal 1.7 - 13.0 % AO Workflow SS Neutrophil, Absolute 6.9 103/mcL High 2.9 - 6 .2 10^3/mcL AO Workflow SS Neutrophils/100 WBC (Bld) 78.2 % Normal 37.0 - 80.0 % AO Workflow SS Platelet mean volume (Bld) [Entitic vol] 7.3 fL Low 7.4 - 10.4 fL AO Workflow SS Platelets (Bld) [#/Vol] 214 103/mcL Normal 130 - 400 10^3/mcL AO Workflow SS Potassium [Moles/Vol] 3.8 mmol/L Normal 3.5 - 5.1 mmol/L AO ADM SS RBC (Bld) [#/Vol] 4.47 106/mcL Normal 4.20 - 5.4 0 10^6/mcL AO Workflow SS Sodium [Moles/Vol] 138 mmol/L Normal 136 - 145 mmol/L AO ADM SS Urea nitrogen [Mass/Vol] 5 mg/dL Low 7 - 18 mg/dL AO ADM SS Urea nitrogen/Creatinine [Mass ratio] 6 ratio Low 7 - 27 ratio AO ADM SS WBC (Bld) [#/Vol] 8.8 103/mcL Normal 4.6 - 10.8 10^3/mcL AO Workflow SS LABORATORYOrdered By: Amy Smith on 03-14-2023 Monocyte distribution width Auto (Bld) [Entitic vol] Not tested 1 (03/14/23 12:52 AM) Normal 0.00 - 20.00 AO Hematology S Comment on above: Result Comment: MDW testing unable to be performed on [id number] instrumentation. Platelet Estimate Normal (03/14/23 12:52 AM) Normal AO Hematology S S. pyogenes DNA EL+probe Ql (Throat) Negative (03/14/23 12:52 AM) Normal Negative AO Auto Urine SS S. pyogenes DNA EL+probe Ql (Throat) Negative for Streptococcus pyogenes by PCR. Negative test results do not rule out other possible infections besides those caused by Group A Streptococcus. False Negatives may be obtained in the presence of NYQUIL (0.5% V/V)The SyMynd Group A Strep Assay is a real-time polymerase chain reaction (PCR) based qualitative in vitro diagnostic test for the direct detection of Streptococcus pyogenes (Group A Beta hemolytic Streptococcus) in throat swab specimens from patients with signs and symptoms of pharyngitis.The Nakul Group A Strep Assay can be used as an aid in the diagnosis of Group A Streptococcal pharyngitis. The assay is not intended to monitor treatment for Group A Streptococcus infections. Normal AO Auto Urine SS STREPAon 03-14-2023 Group A Strep PCR Negative Normal Negative [facility] ([place]) Comment on above: Performed By: #### M DW, BMP, GFR, CBC, ADIFF, ANEU #### [address] [address] Group A Strep PCR Int Normal [facility] ([place]) Comment on above: Result Comment: Nega tive for Streptococcus pyogenes by PCR. Negative test results do not rule out other possible infections besides those caused by Group A Streptococcus. False Negatives may be obtained in the presence of NYQUIL (0.5% V/V) The Nakul Group A Strep Assay is a real-time polymerase chain reaction (PCR) based qualitative in vitro diagnostic test for the direct detection of Streptococcus pyogenes (Group A Beta hemolytic Streptococcus) in throat swab specimens from patients with signs and symptoms of pharyngitis. The Nakul Group A Strep Assay can be used as an aid in the diagnosis of Group A Streptococcal pharyngitis. The assay is not intended to monitor treatment for Group A Streptococcus infections. See Interp Performed By: #### M DW, BMP, GFR, CBC, ADIFF, ANEU #### [address] [address] [id number] 03-12-2023 SARS-CoV-2 (COVID-19) RNA EL+probe Ql (Unsp spec) Negative Normal Negative [facility] ([place]) Comment on above: Performed By: #### M DW, BMP, GFR, CBC, ADIFF, ANEU #### [address] [address] SARS-CoV-2 (COVID-19) RNA EL+probe Ql (Unsp spec) Normal [facility] ([place]) Comment on above: Result Comment: Nega tive results do not preclude SARS-CoV-2 infection and should not be used as the sole basis for patient management decisions. Negative results must be combined with clinical observations, patient history, and epidemiological information. There is a risk of false negative values resulting from improperly collected, transported, or handled specimens. There is a risk of false negative values due to the presence of sequence variants in the pathogen targets of the assay, procedural errors, amplification inhibitors in specimens, or inadequate numbers of organisms for amplification. NAKUL SARS-CoV-2 Assay is a Real-Time reverse-transcriptase polymerase chain reaction (RT-PCR) based qualitative in vitro diagnostic test intended for the qualitative detection of nucleic acid from the SARS-CoV-2 in nasopharyngeal swab specimens collected from individuals suspected of COVID-19 by their healthcare provider. Testing is limited to laboratories certified under the Clinical Laboratory Improvement Amendments of 1988 (CLIA), 42 U.S.C. ?263a, to perform moderate and high complexity tests. COVID-19 Int Performed By: #### M DW, BMP, GFR, CBC, ADIFF, ANEU #### Na [address] [address] FLURSVon 03-12-2023 Flu A PCR (AO) Negative Normal Negative [facility] ([place]) Comment on above: Result Comment: Posi tive Results: Positive Flu A/B or RSV for by PCR. Positive test results do not rule out bacterial infection or co-infection with other pathogens. Test results should be interpreted in conjunction with other laboratory and clinical data. Negative Results: Negative for by PCR. Negative test results do not preclude influenza virus or RSV infection and should not be used as the sole basis for diagnosis, treatment, or other management decisions. There is a risk of false negative RSV results when at low concentration and in the presence of co-infection with high concentration of influenza A. Invalid Results: An Invalid result (INV) was obtained. The test was repeated with similar results. REPEAT COLLECTION AND TESTING IS RECOMMENDED. The Nakul Flu A/B & RSV Assay is a real-time polymerase chain reaction (PCR) based qualitative in vitro diagnostic test for the direct detection and differentiation of influenza A virus, influenza B virus, and respiratory syncytial virus (RSV) nucleic acid in nasopharyngeal swab (PUMP ERECTOR) specimens from patients with signs and symptoms of respiratory infection in conjunction with clinical and laboratory findings. The test is intended for use as an aid in the differential diagnosis of influenza A virus, influenza B virus, and RSV in humans and is not intended to detect influenza C. Performed By: #### M DW, BMP, GFR, CBC, ADIFF, ANEU #### [place] [address] [place], [place] [address] Flu B PCR (AO) Negative Normal Negative [facility] ([place]) Comment on above: Result Comment: Posi tive Results: Positive Flu A/B or RSV for by PCR. Positive test results do not rule out bacterial infection or co-infection with other pathogens. Test results should be interpreted in conjunction with other laboratory and clinical data. Negative Results: Negative for by PCR. Negative test results do not preclude influenza virus or RSV infection and should not be used as the sole basis for diagnosis, treatment, or other management decisions. There is a risk of false negative RSV results when at low concentration and in the presence of co-infection with high concentration of influenza A. Invalid Results: An Invalid result (INV) was obtained. The test was repeated with similar results. REPEAT COLLECTION AND TESTING IS RECOMMENDED. The SyMynd Flu A/B & RSV Assay is a real-time polymerase chain reaction (PCR) based qualitative in vitro diagnostic test for the direct detection and differentiation of influenza A virus, influenza B virus, and respiratory syncytial virus (RSV) nucleic acid in nasopharyngeal swab (PUMP ERECTOR) specimens from patients with signs and symptoms of respiratory infection in conjunction with clinical and laboratory findings. The test is intended for use as an aid in the differential diagnosis of influenza A virus, influenza B virus, and RSV in humans and is not intended to detect influenza C. Performed By: #### M DW, BMP, GFR, CBC, ADIFF, ANEU #### [place] [address] [place], [place] [address] RSV PCR (AO) Negative Normal Negative [facility] ([place]) Comment on above: Result Comment: Posi tive Results: Positive Flu A/B or RSV for by PCR. Positive test results do not rule out bacterial infection or co-infection with other pathogens. Test results should be interpreted in conjunction with other laboratory and clinical data. Negative Results: Negative for by PCR. Negative test results do not preclude influenza virus or RSV infection and should not be used as the sole basis for diagnosis, treatment, or other management decisions. There is a risk of false negative RSV results when at low concentration and in the presence of co-infection with high concentration of influenza A. Invalid Results: An Invalid result (INV) was obtained. The test was repeated with similar results. REPEAT COLLECTION AND TESTING IS RECOMMENDED. The Nakul Flu A/B & RSV Assay is a real-time polymerase chain reaction (PCR) based qualitative in vitro diagnostic test for the direct detection and differentiation of influenza A virus, influenza B virus, and respiratory syncytial virus (RSV) nucleic acid in nasopharyngeal swab (PUMP ERECTOR) specimens from patients with signs and symptoms of respiratory infection in conjunction with clinical and laboratory findings. The test is intended for use as an aid in the differential diagnosis of influenza A virus, influenza B virus, and RSV in humans and is not intended to detect influenza C. Performed By: #### M DW, BMP, GFR, CBC, ADIFF, ANEU #### [address] [place] [id number] LABORATORYOrdered By: Reina Villavicencio on 03-12-2023 FLUAV RNA EL+probe Ql (Upper resp) Negative 1 (03/12/23 9:58 AM) Normal Negative AO Auto Urine SS Comment on above: Interpretive Data: P ositive Results: Positive Flu A/B or RSV for by PCR. Positive test results do not rule out bacterial infection or co-infection with other pathogens. Test results should be interpreted in conjunction with other laboratory and clinical data. Negative Results: Negative for by PCR. Negative test results do not preclude influenza virus or RSV infection and should not be used as the sole basis for diagnosis, treatment, or other management decisions. There is a risk of false negative RSV results when at low concentration and in the presence of co-infection with high concentration of influenza A. Invalid Results: An Invalid result (INV) was obtained. The test was repeated with similar results. REPEAT COLLECTION AND TESTING IS RECOMMENDED. The Nakul Flu A/B & RSV Assay is a real-time polymerase chain reaction (PCR) based qualitative in vitro diagnostic test for the direct detection and differentiation of influenza A virus, influenza B virus, and respiratory syncytial virus (RSV) nucleic acid in nasopharyngeal swab (PUMP ERECTOR) specimens from patients with signs and symptoms of respiratory infection in conjunction with clinical and laboratory findings. The test is intended for use as an aid in the differential diagnosis of influenza A virus, influenza B virus, and RSV in humans and is not intended to detect influenza C. FLUBV RNA EL+probe Ql (Upper resp) Negative 2 (03/12/23 9:58 AM) Normal Negative AO Auto Urine SS Comment on above: Interpretive Data: P ositive Results: Positive Flu A/B or RSV for by PCR. Positive test results do not rule out bacterial infection or co-infection with other pathogens. Test results should be interpreted in conjunction with other laboratory and clinical data. Negative Results: Negative for by PCR. Negative test results do not preclude influenza virus or RSV infection and should not be used as the sole basis for diagnosis, treatment, or other management decisions. There is a risk of false negative RSV results when at low concentration and in the presence of co-infection with high concentration of influenza A. Invalid Results: An Invalid result (INV) was obtained. The test was repeated with similar results. REPEAT COLLECTION AND TESTING IS RECOMMENDED. The Nakul Flu A/B & RSV Assay is a real-time polymerase chain reaction (PCR) based qualitative in vitro diagnostic test for the direct detection and differentiation of influenza A virus, influenza B virus, and respiratory syncytial virus (RSV) nucleic acid in nasopharyngeal swab (PUMP ERECTOR) specimens from patients with signs and symptoms of respiratory infection in conjunction with clinical and laboratory findings. The test is intended for use as an aid in the differential diagnosis of influenza A virus, influenza B virus, and RSV in humans and is not intended to detect influenza C. RSV RNA EL+probe Ql (Upper resp) Negative 3 (03/12/23 9:58 AM) Normal Negative AO Auto Urine SS Comment on above: Interpretive Data: P ositive Results: Positive Flu A/B or RSV for by PCR. Positive test results do not rule out bacterial infection or co-infection with other pathogens. Test results should be interpreted in conjunction with other laboratory and clinical data. Negative Results: Negative for by PCR. Negative test results do not preclude influenza virus or RSV infection and should not be used as the sole basis for diagnosis, treatment, or other management decisions. There is a risk of false negative RSV results when at low concentration and in the presence of co-infection with high concentration of influenza A. Invalid Results: An Invalid result (INV) was obtained. The test was repeated with similar results. REPEAT COLLECTION AND TESTING IS RECOMMENDED. The Nakul Flu A/B & RSV Assay is a real-time polymerase chain reaction (PCR) based qualitative in vitro diagnostic test for the direct detection and differentiation of influenza A virus, influenza B virus, and respiratory syncytial virus (RSV) nucleic acid in nasopharyngeal swab (PUMP ERECTOR) specimens from patients with signs and symptoms of respiratory infection in conjunction with clinical and laboratory findings. The test is intended for use as an aid in the differential diagnosis of influenza A virus, influenza B virus, and RSV in humans and is not intended to detect influenza C. SARS-CoV-2 (COVID-19) RNA EL+probe Ql (Resp) Negative results do not preclude SARS-CoV-2 infection and should not be used as the sole basis for patient management decisions. Negative results must be combined with clinical observations, patient history, and epidemiological information.There is a risk of false negative values resulting from improperly collected, transported, or handled specimens.There is a risk of false negative values due to the presence of sequence variants in the pathogen targets of the assay, procedural errors, amplification inhibitors in specimens, or inadequate numbers of organisms for amplification.NAKUL SARS-CoV-2 Assay is a Real-Time reverse-transcriptase polymerase chain reaction (RT-PCR) based qualitative in vitro diagnostic test intended for the qualitative detection of nucleic acid from the SARS-CoV-2 in nasopharyngeal swab specimens collected from individuals suspected of COVID-19 by their healthcare provider. Testing is limited to laboratories certified under the Clinical Laboratory Improvement Amendments of 1988 (CLIA), 42 U.S.C. 263a, to perform moderate and high complexity tests. Invalid Interpretation Code AO Auto Urine SS [facility] KAYA ARCE ([id number]) 1985 [facility] Date Time Provider Department 03/08/23 SERJIO THOMPSON [facility] During your visit today, we recorded the following information about you: BarrieJet 03/08/2023 11:38 AM Signed I left patient a vm informing her that her upcoming appt had been moved up to 03/23 at 10 am and to call office if she needs to reschedule. Allergies As of Date: 03/08/2023 Noted Allergy Reaction EUCALYPTUS 06/07/2007 4 - [...] cold and clammy (subjective only) Date Reviewed: 02/25/2023 Reviewed by: Becky Duckworth CMA - Fully Assessed Prescriptions as of 03/08/2023 - hydrocortisone (CORTIZONE-10) 1 % lotion Apply to affected area two times a day. - loratadine (CLARITIN) 10 mg tablet Take [...] increase frequency to nightly as tolerated. - benzoyl peroxide (BENOXYL 10) 10 % lotn (Discontinued) Apply to affected area twice daily. - ibuprofen (MOTRIN) 600 mg tablet Take 1 tablet by mouth every 6 hours. Take with food. - acetaminophen (TYLENOL EXTRA STRENGTH) 500 mg tablet Take 2 tablets by mouth every 6 hours. - mesalamine (ROWASA) 4 gram/60 mL enema 4 g by RECTAL route daily at bedtime. - lidocaine (XYLOCAINE) 5 % ointment Apply to affected area as needed. - baclofen vaginal suppository 10 mg (CPD) [...] tablets daily Problem List As Of Date 03/08/2023 Noted Resolved PAIN IN JOINT, LOWER LEG [M25.569] 12/11/2005 01/24/2008 Uncomplicated asthma [J45.909] 02/17/2006 CHRONIC RHINITIS [J31.0] 02/17/2006 Insulin resistance [E88.819] 02/17/2006 IBS (IRRITABLE BOWEL SYNDROME) [K58.9] 02/17/2006 ANAL FISSURE [K60.2] BENIGN NEOPLASM LG BOWEL [D12.6] RECTAL AND ANAL HEMORRHAGE [K62.5] 08/01/2008 ESOPHAGEAL REFLUX [K21.9] DEVIATED NASAL SEPTUM [J34.2] 07/12/2007 POLYCYSTIC OVARIES [E28.2] 11/11/2007 Urinary calculus, unspecified [N20.9] 12/22/2007 10/06/2017 IMPAIRED FASTING GLUCOSE [R73.01] 01/24/2008 ABN GLUCOSE-ANTEPARTUM [O99.810] 08/01/2008 THROMBOS HEMORRHOIDS NOS [K6 (more content not included)... Normal [facility] CNPN Telephone (NEAGCLM) KAYA ARCE ([id number]) 1985 F [facility] Date Time Provider Department 03/08/[address] [facility] During your visit today, we recorded the following information about you: Amy Narvaez RN 03/08/2023 10:54 AM Signed Kaya called voicing concerns about worsening low back and left leg pain. She denies any falls or adverse events to cause this. She describes low back pain that radiated into her left leg "where it connects to her torso", into the posterior leg all the way to her heel. She describes the pain as a "deep, deep ache". She said she cannot stand for more than 15 minutes without severe pain to which she has to lay down. She also notes trouble walking. She denies any bowel/bladder dysfunction at this time. She presented to [facility] last week and the treated her with oral steroids to which she got some temporary relief, but that has since stopped helping. I advised her that since the pain is severe and she is having trouble walking, that she should go to ED and be re-evaluated for this pain to see if anything acute has happened. I also transferred this call to Amber, the editorial writer for Dr. Thompson to see if we can get her seen in the office sooner. She was thankful for the advise. Amy Naravez RN Allergies As of Date: 03/08/2023 Noted Allergy Reaction EUCALYPTUS 06/07/2007 4 - [...] cold and clammy (subjective only) Date Reviewed: 02/25/2023 Reviewed by: Becky Duckworth CMA - Fully Assessed Prescriptions as of 03/08/2023 - hydrocortisone (CORTIZONE-10) 1 % lotion Apply to affected area two times a day. - loratadine (CLARITIN) 10 mg tablet Take [...] increase frequency to nightly as tolerated. - benzoyl peroxide (BENOXYL 10) 10 % lotn (Discontinued) Apply to affected area twice daily. - ibuprofen (MOTRIN) 600 mg tablet Take 1 tablet by mouth every 6 hours. Take with food. - acetaminophen (TYLENOL EXTRA STRENGTH) 500 mg tablet Take 2 tablets by mouth every 6 hours. - mesalamine (ROWASA) 4 gram/60 mL enema 4 g by RECTAL route daily at bedtime. - lidocaine (XYLOCAINE) 5 % ointment Apply to affected area as needed. - baclofen vaginal suppository 10 mg (CPD) [...] 2 tablets by mouth once daily. - docus (more content not included)... Normal [facility] CNPNon 03-05-2023 CNPN Telephone (SPAGWO) KAYA ARCE ([id number]) 1985 F FNS Date Time Provider Department 03/05/23 GRETTA DELONG During your visit today, we recorded the following information about you: Danay Silverio 03/05/2023 9:20 AM Signed Received referral from Serjio Thompson MD to schedule patient for Consideration of cervical TIFF, neck pain. [facility] for patient to return call. Offered patient appointment in [place] as [facility] is close. Danay [place] 03/09/2023 8:32 AM Signed Spoke with patient and scheduled new patient consult with Gretta Delong on 03/19/2023 Danay Silverio Allergies As of Date: 03/05/2023 Noted Allergy Reaction EUCALYPTUS 06/07/2007 4 - [...] cold and clammy (subjective only) Date Reviewed: 02/25/2023 Reviewed by: Becky Duckworth CMA - Fully Assessed Reason for Visit: New Patient [172] Prescriptions as of 03/09/2023 - hydrocortisone (CORTIZONE-10) 1 % lotion Apply to affected area two times a day. - loratadine (CLARITIN) 10 mg tablet Take [...] increase frequency to nightly as tolerated. - benzoyl peroxide (BENOXYL 10) 10 % lotn (Discontinued) Apply to affected area twice daily. - ibuprofen (MOTRIN) 600 mg tablet Take 1 tablet by mouth every 6 hours. Take with food. - acetaminophen (TYLENOL EXTRA STRENGTH) 500 mg tablet Take 2 tablets by mouth every 6 hours. - mesalamine (ROWASA) 4 gram/60 mL enema 4 g by RECTAL route daily at bedtime. - lidocaine (XYLOCAINE) 5 % ointment Apply to affected area as needed. - baclofen vaginal suppository 10 mg (CPD) [...] tablets daily Problem List As Of Date 03/05/2023 Noted Resolved PAIN IN JOINT, LOWER LEG [M25.569] 12/11/2005 01/24/2008 Uncomplicated asthma [J45.909] 02/17/2006 CHRONIC RHINITIS [J31.0] 02/17/2006 Insulin resistance [E88.819] 02/17/2006 IBS (IRRITABLE BOWEL SYNDROME) [K58.9] 02/17/2006 ANAL FISSURE [K60.2] BENIGN NEOPLASM LG BOWEL [D12.6] RECTAL AND ANAL HEMORRHAGE [K62.5] 08/01/2008 ESOPHAGEAL REFLUX [K21.9] (more content not included)... Normal [facility] CNOVon 02-25-2023 CNOV Office Visit (NEAGCL M) KAYA ARCE ([id number]) 1985 F FNS Date Time Provider Department 02/25/23 11:30 AM SERJIO THOMPSON NEAGCLM During your visit today, we recorded the following information about you: Pulse Respiration Blood pressure Weight 84/minute 16/minute 115/78 85.2 kg Serjio Thompson MD 02/25/2023 2:49 PM Signed NEUROSURGERY FOLLOW UP OFFICE NOTE Serjio Thompson MD [facility] Date of visit: February 25, 2023 Patient Name: Ms.Ashley Alexandro Arce Date of : 1985 Current Age: [age] year old Sex: female MRN/E# [id number] Last Office Visit: 12/15/2022 Chief Complaint: No [...] X1 F SALPINGO-OOPHORECTOMY 08/21/2014 LEFT only LAPAROSCOPY T (more content not included)... Normal [facility] MRI CERVICAL SPINE WO IVCONo n 02-25-2023 MRI CERVICAL SPINE WO IVCON * * *Final Report* * * DATE OF EXAM: Feb 25 2023 9:48AM A1M 0297 - MRI CERVICAL SPINE WO IVCON / PROCEDURE REASON: Spinal stenosis of cervical region * * * * Physician Interpretation * * * * EXAMINATION: MRI CERVICAL SPINE WO IVCON CLINICAL HISTORY: Cervical spinal stenosis. Bilateral arm numbness. TECHNIQUE: Routine cervical spine MR protocol without gadolinium. MQ: [id number] COMPARISON: Radiographs dated 10/20/2022 RESULT: Counting reference: Craniocervical junction. Anatomic Variants: None. Localizer images: No additional significant findings Alignment: Alignment is anatomic. Craniocervical junction: Suspect incidental left dorsal posterior fossa arachnoid cyst measuring 10 mm in maximal thickness. Cord: The visualized cord is within normal limits of signal intensity but is compressed as outlined below. Bone marrow signal/fracture: No evidence of pathologic marrow infiltration. No evidence of prior fracture. Cervical soft tissues: The paraspinal soft tissues are within normal limits. C2-C3: Canal and foramina are patent. C3-C4: Canal and foramina are patent. C4-C5: Canal and foramina are patent. C5-C6: Mild broad-based disc bulging and right uncinate hypertrophy. Ventral thecal sac effacement. Mild right foraminal stenosis. No significant overall canal stenosis. C6-C7: There is a moderate-sized central/right paracentral broad-based disc protrusion. This results in moderate canal stenosis and mild right ventral cord flattening. Neuroforamina are patent. C7-T1: Canal and foramina are patent. IMPRESSION: Moderate sized broad-based central/right paracentral disc protrusion at C6-C7 resulting in moderate canal stenosis and mild right ventral cord flattening at this level. C5-C6 mild right foraminal stenosis. No additional significant canal or foraminal stenoses at the remaining cervical levels. Anatomic Variant: None. Assume 7 cervical vertebrae with counting from the craniocervical junction. Youth Services Specialist: PSCB Transcribe Date/Time: Feb 25 2023 3:30P Dictated by : SAIDA GARZON MD This examination was interpreted and the report reviewed and electronically signed by: SAIDA GARZON MD on Feb 25 2023 3:42PM EST [id number] Normal [facility] MRI LUMBAR SPINE WO IVCONon 02-25-2023 MRI LUMBAR SPINE WO IVCON * * *Final Report* * * DATE OF EXAM: Feb 25 2023 10:27AM A1M 0303 - MRI LUMBAR SPINE WO IVCON / PROCEDURE REASON: Spinal stenosis of lumbar region, unspecified whether neurogenic claudication pr * * * * Physician Interpretation * * * * EXAMINATION: MRI LUMBAR SPINE WO IVCON CLINICAL HISTORY: Spinal stenosis of lumbar region, unspecified whether neurogenic claudication present TECHNIQUE: Routine lumbosacral spine MR protocol without gadolinium. MQ: [id number] COMPARISON: None RESULT: Counting reference: Lumbosacral junction. For the purposes of this report, L4-5 is considered the level of the iliac crest and assume there are 5 lumbar-type vertebrae. Anatomic variant: None. Localizer images: No additional significant findings. Alignment: Alignment is anatomic. Bone marrow signal/fracture: No evidence of pathologic marrow infiltration. No evidence of prior fracture. Conus: The conus is within normal limits of signal intensity and morphology. Paraspinal soft tissues: Paraspinal soft tissues are within normal limits. Lower thoracic spine: Visualized lower thoracic canal and foramina are patent. L1-L2: Canal and foramina are patent. L2-L3: Canal and foramina are patent L3-L4: Disc desiccation. Minimal disc bulge. Canal foramina patent. L4-L5: Mild left facet arthrosis. Canal foramina patent. No significant disc herniation. L5-S1: Canal and foramina are patent Sacrum and iliac wings: The visualized sacrum and iliac wings are within normal limits. IMPRESSION: Minimal lower lumbar degenerative changes as above. No significant disc herniation, spinal stenosis, or foraminal compromise. Anatomic Lumbar Variant: None. L4-5 is considered the level of the iliac crest and assume there are 5 lumbar-type vertebrae. Youth Services Specialist: PSCB Transcribe Date/Time: Feb 25 2023 3:16P Dictated by : SAIDA GARZON MD This examination was interpreted and the report reviewed and electronically signed by: SAIDA GARZON MD on Feb 25 2023 3:18PM EST [id number] Normal [facility] US FEMALE PELVIS TRANSVAGon 02-01-2023 [facility] US LEG VEIN DVT UNL VAS LABo n 01-08-2023 [facility] XR Knee - left 4 Viewson IMPRESSION: Normal radiographs. Youth Services Specialist: PSCB Transcribe Date/Time: Jan 05 2023 2:20P Dictated by : SAIDA HAAS MD This examination was interpreted and the report reviewed and electronically signed by: HARLEY RAMON MD on Jan 05 2023 2:56PM EST DIVISION OF RADIOLOGY * * *Final Report* * * DATE OF EXAM: Jan 05 2023 1:44PM SHX [id number] - XR KNEE 4V AP/PA BOTH+LAT/ZAID LT / PROCEDURE REASON: Pain * * * * Physician Interpretation * * * * EXAMINATION / TECHNIQUE: XR KNEE 4V AP/PA BOTH+LAT/ZAID LT PATIENT/TECHNOLOGIST PROVIDED HISTORY: PT STATES INJURY TO LEG X 4 WEEK SAGO UNABLE TO BEAR WEIGHT PAIN IN BACK OF KNEE UNABLE TO STRAIGHTEN LEG CLINICAL INFORMATION ( PROVIDED BY ORDERING CLINICIAN) : Pain COMPARISON: None RESULT: No acute fracture or dislocation. Knee joint spaces are preserved. No significant knee joint effusion. DIVISION OF RADIOLOGY Provider, [facility] * * *Final Report* * * DATE OF EXAM: Jan 05 2023 1:44PM SHX 5202 - XR KNEE 4V AP/PA BOTH+LAT/ZAID LT / PROCEDURE REASON: Pain * * * * Physician Interpretation * * * * EXAMINATION / TECHNIQUE: XR KNEE 4V AP/PA BOTH+LAT/ZAID LT PATIENT/TECHNOLOGIST PROVIDED HISTORY: PT STATES INJURY TO LEG X 4 WEEK SAGO UNABLE TO BEAR WEIGHT PAIN IN BACK OF KNEE UNABLE TO STRAIGHTEN LEG CLINICAL INFORMATION ( PROVIDED BY ORDERING CLINICIAN) : Pain COMPARISON: None RESULT: No acute fracture or dislocation. Knee joint spaces are preserved. No significant knee joint effusion. IMPRESSION IMPRESSION: Normal radiographs. Youth Services Specialist: PSCB Transcribe Date/Time: Jan 05 2023 2:20P Dictated by : SAIDA HAAS MD This examination was interpreted and the report reviewed and electronically signed by: HARLEY RAMON MD on Jan 05 2023 2:56PM EST [facility] Radiology Study observation (narrative) [facility] XR Knee - left 4 ViewsOrdere d By: [facility] Provider on 01-05-2023 [facility] UA DIP, URINE (POC)on 2022 BILIRUBIN UA (POCT) Negative Negative [facility] CLARITY UA (POCT) Clear [facility] COLOR UA (POCT) Yellow [facility] GLUCOSE UA (POCT) Negative Negative mg/dL [facility] Hemoglobin Ql (U) Trace-lysed Abnormal Negative [facility] KETONE UA (POCT) Negative Negative mg/dL [facility] LEUKOCYTES UA (POCT) Negative Negative [facility]) [facility] PH UA (POCT) 6.5 4.5 - 8.0 [facility] Protein Ql (U) Negative Negative mg/dL [facility] SPECIFIC GRAVITY UA (POCT) <=1.005 Abnormal 1.005 - 1.030 [facility] UROBILINOGEN UA (POCT) 0.2 E.U./dL Zeyenp l E.U./dL [facility] XR ANKLE MINIMUM 3 VIEWS LEF Ton 12-11-2022 XR ANKLE MINIMUM 3 VIEWS LEFT ORIGINAL EXAMINATION: THREE XRAY VIEWS OF THE [...] 12/11/2022 4:28:40 PM Ordering Provider: POLO PERRY [facility] [place] X[place] TIBIA/FIBULA 2 VIEWS LEFT on 12-11-2022 XR TIBIA/FIBULA 2 VIEWS LEFT ORIGINAL EXAMINATION: THREE XRAY VIEWS OF THE [...] 12/11/2022 4:28:40 PM Ordering Provider: POLO PERRY [facility] [place] Office Visit (Genetics)on Follow-up visit Diagnoses/Problems Assessed Encounter for nonprocreative genetic counseling and testing (V26.33,V82.71) (Z71.83,Z13.71) FHx: prostate cancer (V16.42) (Z80.42) : Maternal Grandfather, Paternal Aunt Family history of pancreatic cancer (V16.0) (Z80.0) : Paternal Aunt Family history of malignant neoplasm of breast (V16.3) (Z80.3) : Maternal Grandmother Patient Discussion/Summary KAYA ARCE is a 37-year-old female with a recent diagnosis of low-grade serous epithelial proliferation. She also has a family history of prostate and pancreatic cancer on her father's side and breast cancer and Ashkenazi Hoahaoism ancestry on her mother's side. This history is concerning for possible hereditary cancer. Concerning for possible (hereditary breast cancer). This could be BRCA1 or BRCA2-related hereditary breast and ovarian cancer (HBOC), or hereditary cancer due to a different gene mutation, such as PALB2. Based on her maternal family history of breast cancer and Hoahaoism ancestry, Ms. ARCE meets current national (NCCN) criteria for testing of high-penetrance breast cancer susceptibility genes, including BRCA1, BRCA2, CDH1, PALB2, PTEN, and TP53. Testing is medically necessary, as will help determine if Ms. ARCE is a candidate for high-risk breast care, as well as surgery to remove her remaining ovary. We reviewed genes and chromosomes, inherited forms of breast and ovarian cancer, and the BRCA1 and BRCA2 genes causing HBOC. We discussed that most cancers are not due to an inherited genetic susceptibility. However, in about 5-10% of families, there is an inherited genetic mutation that can make a person more susceptible to developing certain forms of cancer. Within these families, we often see multiple family members with cancer, occurring in multiple generations. In addition, earlier onset and bilateral cancers are suggestive of an inherited form of cancer. Finally, there is a clustering of certain types of cancer in these families, such as breast and ovarian cancer. We discussed the BRCA1 and BRCA2 genes, which are two genes that have been linked to early-onset breast and/or ovarian cancer. Mutations in these genes are inherited in a dominant pattern and confer up to an 87% lifetime risk for breast cancer. This is elevated compared to the general population risk of 10-12%. In addition, BRCA1 and BRCA2 mutation carriers have up to a 45% lifetime risk for ovarian cancer, which is elevated over the 2% general population risk. Mutation carriers who have already been diagnosed with cancer have an increased risk to develop a second, contralateral breast cancer. BRCA2 gene mutation carriers have an increased risk for male breast cancer, prostate cancer, melanoma, gastric cancer, and pancreatic cancer. We discussed that there are multiple genes associated with increased breast and/or ovarian cancer risk. Some genes, like the BRCA genes are considered highly penetrant breast and ovarian cancer genes, meaning a mutation in the gene confers a high risk of breast and/or ovarian cancer. On the other hand, there are other intermediate (moderate risk) breast and ovarian cancer genes. For many of the moderate risk genes, there is sometimes limited information regarding the degree to which a mutation in the gene affects risk of different types of cancers. Additionally, for some of these moderate risk genes, the appropriate management for individuals who have a mutation in one of these genes is not always clear. In many cases, even if an individual tests positive for a mutation in a moderate risk gene, recommendations are still based on the family history, not the positive test result. Ms. ARCE was counseled about hereditary cancer susceptibility including cancer risks, options for increased screening and/or risk reduction, genetic testing, and the implications for other family members. We discussed performing BRCA1 and BRCA2 genetic testing either in isolation, or in the context of a larger panel test that looks at 47 different genes that have been shown to increase cancer risk including risk for breast cancer. This panel test, known as the [employer] Common Hereditary Cancers panel examines the following genes: APC, NAVNEET, AXIN2, BARD1, BMPR1A, BRCA1, BRCA2, BRIP1, CDH1, CDK4, CDKN2A, CHEK2, CTNNA1, DICER1, EPCAM, GREM1, HOXB13, KIT, MEN1, MLH1, MSH2, MSH3, MSH6, MUTYH, NBN, NF1, NTHL1, PALB2, PDGFRA, PMS2, POLD1, POLE, PTEN, RAD50, RAD51C, RAD51D, SDHA, SDHB, SDHC, SDHD, SMAD4, SMARCA4, STK11, TP53, TSC1, TSC2, and VHL. We discussed the Genetic Information Nondiscrimination Act (KOBI). We discussed the protections and limitations of KOBI. KOBI generally makes in illegal for health insurance companies, group health plans, and most employers (with >15 employees) to discriminate based on genetic information. It does not protect against genetic discrimination for life insurance, disability insurance, long-term care, or other insurances. After a discussion about the risks, benefits, and limitations of genetic test (more content not included)... Normal [employer] Tobacco Screening.on 023 Adult depression screening assessment No [employer] [address] Work Phone: Adult depression screening assessment Yes [employer] Work Phone: Fall risk assessment b) One or more fall s in the last year [employer] [address] Work Phone: Tobacco use status [facility]PHS b) No [employer] Work Phone: [facility] KAYA ARCE ([id number]) 1985 F FNS Date Time Provider Department 12/07/22 SERJIO THOMPSON NEAGCLM During your visit today, we recorded the following information about you: Umesh Uzair Amber 12/07/2022 9:24 AM Signed Patient scheduled for in person visit with Dr Thompson. Dr Thompson said to follow up virtually. I left a message for the patient asking to call me back if she would like to change appointment to virtual. Allergies As of Date: 12/07/2022 Noted Allergy Reaction EUCALYPTUS 06/07/2007 4 - [...] Date Reviewed: 11/14/2022 Reviewed by: Adriane Rodriguez APRN.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 - Fully Assessed Reason for Visit: Appointment [186] Prescriptions as of 12/07/2022 - loratadine (CLARITIN) 10 mg tablet Take [...] tablets daily Problem List As Of Date 12/07/2022 Noted Resolved PAIN IN JOINT, LOWER LEG [M25.569] 12/11/2005 01/24/2008 Uncomplicated asthma [J45.909] 02/17/2006 CHRONIC RHINITIS [J31.0] 02/17/2006 Insulin resistance (more content not included)... Normal [facility] .Auto Diffon 12-01-2022 Basophil, Absolute 0.0 10 3/mcL Normal 0.0-0.2 [facility] ([place]) Comment on above: Performed By: #### C MP, GFR, CBC, VIRGINIA COX MDW, LIP #### [facility] [address] [place] [address] Basophils/100 WBC (Bld) 0.5 % Normal 0.0-2.5 [facility] ([place]) Comment on above: Performed By: #### C MP, GFR, CBC, VIR[place]IA COX MDW, LIP #### [address] [address] Eosinophil, Absolute 0.1 10 3/mcL Normal 0.0-0.4 [facility] ([place]) Comment on above: Performed By: #### C MP, GFR, CBC, ADIFF, ANEU, MDW, LIP #### [address] [address] Eosinophils/100 WBC (Bld) 1.9 % Normal 0.0-7.0 [facility] ([place]) Comment on above: Performed By: #### C MP, GFR, CBC, ADIFF, ANEU, MDW, LIP #### [address] [address] Lymphocyte, Absolute 2.7 10 3/mcL Normal 0.8-3.9 [facility] ([place]) Comment on above: Performed By: #### C MP, GFR, CBC, ADIFF, ANEU, MDW, LIP #### [address] [address] Lymphocytes/100 WBC (Bld) 35.4 % Normal 10.0-50.0 [facility] ([place]) Comment on above: Performed By: #### C MP, GFR, CBC, ADIFF, ANEU, W, LIP #### [address] [address] Monocyte, Absolute 0.6 10 3/mcL Normal 0.2-1.0 [facility] ([place]) Comment on above: Performed By: #### C MP, GFR, CBC, ADIFF, ANEU, MDW, LIP #### [address] [address] Monocytes/100 WBC (Bld) 7.4 % Normal 1.7-13.0 [facility] ([place]) Comment on above: Performed By: #### C MP, GFR, CBC, ADIFF, ANEUMDW, LIP #### [address] [address] Neutrophils/100 WBC (Bld) 54.8 % Normal 37.0-80.0 [facility] ([place]) Comment on above: Performed By: #### C MP, GFR, CBC, ADIFF, ANEU, MDW, VERENICE #### [address] [address] .GFRon 12-01-2022 GFR 87 ml/min/1.73sqm Normal [facility] ([place]) Comment on above: Result Comment: GFR Population mean for , [...] 15 mL/min/1.73 square meters Performed By: #### M DW, BMP, GFR, CBC, ADIFF, ANEU #### [address] [address] GFR Non- 72 ml/min/1.73sqm Normal [facility] ([place]) Comment on above: Result Comment: GFR Population mean for , [...] 15 mL/min/1.73 square meters Performed By: #### M DW, BMP, GFR, CBC, ADIFF, ANEU #### [address] [address] .MDWon 12-01-2022 Monocyte Distribution Width 18.22 Normal 0.00-20.00 [facility] ([place]) Comment on above: Result Comment: For ED adult patients suspected of sepsis, MDW<=20.0 does not rule out sepsis or risk of sepsis Performed By: #### M DW, BMP, GFR, CBC, ADIFF, ANEU #### [place] [address] [place], [place] [address] .NEUABSon 12-01-2022 Neutrophil, Absolute 4.2 10 3/mcL Normal 2.9-6.2 [facility] ([place]) Comment on above: Performed By: #### C MP, GFR, CBC, ADIFF, ANEU, MDW, LIP #### [address] [address] 36on 12-01-2022 36 Patient has not returned calls to r/s surgery. Normal [facility] CBCon 12-01-2022 Erythrocyte distribution width (RBC) [Ratio] 14.2 % Normal 11.5-14.5 [facility] ([place] Comment on above: Performed By: #### C MP, GFR, CBC, ADIFF, ANEU, MDW, LIP #### [address] [address] Hematocrit (Bld) [Volume fraction] 39.3 % Normal 37.0-47.0 [facility] ([place]) Comment on above: Performed By: #### C MP, GFR, CBC, ADIFF, ANEU, MDW, LIP #### [address] [address] Hgb 12.9 G/dL Normal 12.0-16.0 [facility] ([place]) Comment on above: Performed By: #### C MP, GFR, CBC, ADIFF, ANEU, MDW, LIP #### [address] [address] MCH (RBC) [Entitic mass] 27.2 pg Normal 27.0-31.2 [facility] ([place]) Comment on above: Performed By: #### C MP, GFR, CBC, ADIFF, ANEU, MDW, LIP #### [address] [address] MCHC 32.8 G/dL Low 33.0-37.0 [facility] ([place]) Comment on above: Performed By: #### C MP, GFR, CBC, ADIFF, MD VIRGINIAW, LIP #### [place] [address] MCV (RBC) [Entitic vol] 82.8 fL Normal 80.0-94.0 [facility] ([place]) Comment on above: Performed By: #### C MP, GFR, CBC, ADIFF, ANEU, W, LIP #### [place] [address] Platelet 292 10 3/mcL Normal 130-400 [facility] ([place]) Comment on above: Performed By: #### C MP, GFR, CBC, ADIFF, ANEUMDW, LIP #### [place] [address] Platelet mean volume (Bld) [Entitic vol] 7.1 fL Low 7.4-10.4 [facility] ([place]) Comment on above: Performed By: #### C MP, GFR, CBC, ADIFF, ANEU, W, LIP #### [place] [address] RBC 4.74 10 6/mcL Normal 4.20-5.40 [facility] ([place]) Comment on above: Performed By: #### C MP, GFR, CBC, ADIFF, ANEU, MDW, LIP #### [place] [address] WBC 7.7 10 3/mcL Normal 4.6-10.8 [facility] ([place]) Comment on above: Performed By: #### C MP, GFR, CBC, ADIFF, ANEU, W, LIP #### [address] [address] CMPon 12-01-2022 Albumin Level 3.7 G/dL Normal 3.5-5.0 [facility] ([place]) Comment on above: Performed By: #### M DW, BMP, GFR, CBC, ADIFF, ANEU #### [address] [address] Albumin/Globulin [Mass ratio] 1.0 {ratio} Low 1.1-2.5 [facility] ([place]) Comment on above: Performed By: #### M DW, BMP, GFR, CBC, ADIFF, ANEU #### [address] [address] ALP [Catalytic activity/Vol] 81 U/L Normal 40-135 [facility] ([place]) Comment on above: Performed By: #### M DW, BMP, GFR, CBC, ADIFF, ANEU #### [address] [address] ALT [Catalytic activity/Vol] 28 U/L Normal 14-59 [facility] ([place]) Comment on above: Performed By: #### M DW, BMP, GFR, CBC, ADIFF, ANEU #### [address] [address] AST [Catalytic activity/Vol] 17 U/L Normal 10-40 [facility] ([place]) Comment on above: Performed By: #### M DW, BMP, GFR, CBC, ADIFF, ANEU #### [address] [address] Bili Total 0.2 mg/dL Normal 0.2-1.0 [facility] ([place]) Comment on above: Result Comment: Use of this assay is not recommended for patients undergoing treatment with eltrombopag due to the potential for falsely elevated results. Performed By: #### M DW, BMP, GFR, CBC, ADIFF, ANEU #### [address] [address] BUN/Creatinine Ratio 8 ratio Normal 7-27 [facility] ([place]) Comment on above: Performed By: #### M DW, BMP, GFR, CBC, ADIFF, ANEU #### [address] [address] Calcium [Mass/Vol] 9.5 mg/dL Normal 8.4-10.2 [facility] ([place]) Comment on above: Performed By: #### M DW, BMP, GFR, CBC, ADIFF, ANEU #### [address] [address] Chloride [Moles/Vol] 103 mmol/L Normal 98-107 [facility] ([place]) Comment on above: Performed By: #### M DW, BMP, GFR, CBC, ADIFF, ANEU #### [address] [address] CO2 [Moles/Vol] 24 mmol/L Normal 22-29 [facility] ([place]) Comment on above: Performed By: #### M DW, BMP, GFR, CBC, ADIFF, ANEU #### [address] [address] Creatinine [Mass/Vol] 0.88 mg/dL Normal 0.55-1.02 [facility] ([place]) Comment on above: Performed By: #### M DW, BMP, GFR, CBC, ADIFF, ANEU #### [address] [address] Electrolyte Balance 11.0 mEq/L Normal 4.0-15.0 [facility] ([place]) Comment on above: Performed By: #### M DW, BMP, GFR, CBC, ADIFF, ANEU #### [address] [address] Globulin 3.8 G/dL Normal [facility] ([place]) Comment on above: Performed By: #### M DW, BMP, GFR, CBC, ADIFF, ANEU #### [address] [address] Glucose [Mass/Vol] 107 mg/dL High 70-105 [facility] ([place]) Comment on above: Performed By: #### M DW, BMP, GFR, CBC, ADIFF, ANEU #### [address] [address] Potassium [Moles/Vol] 4.1 mmol/L Normal 3.5-5.1 [facility] ([place]) Comment on above: Performed By: #### M DW, BMP, GFR, CBC, ADIFF, ANEU #### [address] [address] Sodium [Moles/Vol] 138 mmol/L Normal 136-145 [facility] ([place]) Comment on above: Performed By: #### M DW, BMP, GFR, CBC, ADIFF, ANEU #### [address] [place], [place] [address] Total Protein 7.5 G/dL Normal 6.4-8.2 [facility] ([place]) Comment on above: Performed By: #### M DW, BMP, GFR, CBC, ADIFF, ANEU #### [address] [place], [place] [address] Urea nitrogen [Mass/Vol] 7 mg/dL Normal 7-18 [facility] ([place]) Comment on above: Performed By: #### M DW, BMP, GFR, CBC, ADIFF, ANEU #### [address] [address] [address] ABDOMEN/PELVIS W/O CONTRA STon 12-01-2022 CT ABDOMEN/PELVIS W/O CONTRAST ORIGINAL EXAMINATION: CT OF THE ABDOMEN AND [...] symmetric in size without hydronephrosis. 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 Interpreted by: Harley Mitchell MD Preliminary Report By: Gatito Rosario Electronically signed By Harley Mitchell MD Dictated Date: 12/01/2022 3:25:13 PM Prelim Date: 12/01/2022 3:53:51 PM Sign Date: 12/01/2022 3:53:51 PM Ordering Provider: FAITH ARIAS [facility] ([place]) LABORATORYOrdered By: SYSTEM SYSTEM on 12-01-2022 Albumin BCP dye [Mass/Vol] 3.7 G/dL Invalid Interpretation Code 3.5 - 5.0 G/dL AO ADM SS Albumin/Globulin [Mass ratio] 1.0 {ratio} Invalid Interpretation Code 1.1 - 2.5 ratio AO ADM SS ALP [Catalytic activity/Vol] 81 U/L Invalid Interpretation Code 40 - 135 U/L AO ADM SS ALT With P-5'-P [Catalytic activity/Vol] 28 U/L Invalid Interpretation Code 14 - 59 U/L AO ADM SS AST With P-5'-P [Catalytic activity/Vol] 17 U/L Invalid Interpretation Code 10 - 40 U/L AO ADM SS Basophil, Absolute 0.0 103/mcL Invalid Interpretation Code 0.0 - 0.2 10^3/mcL AO Workflow SS Basophils/100 WBC (Bld) 0.5 % Invalid Interpretation Code 0.0 - 2.5 % AO Workflow SS Bilirubin [Mass/Vol] 0.2 mg/dL Invalid Interpretation Code 0.2 - 1.0 mg/dL AO ADM SS Comment on above: Interpretive Data: U se of this assay is not recommended for patients undergoing treatment with eltrombopag due to the potential for falsely elevated results. Calcium [Mass/Vol] 9.5 mg/dL Invalid Interpretation Code 8.4 - 10.2 mg/dL AO ADM SS Chloride [Moles/Vol] 103 mmol/L Invalid Interpretation Code 98 - 107 mmol/L AO ADM SS CO2 [Moles/Vol] 24 mmol/L Invalid Interpretation Code 22 - 29 mmol/L AO ADM SS Creatinine [Mass/Vol] 0.88 mg/dL Invalid Interpretation Code 0.55 - 1.02 mg/dL AO ADM SS Electrolyte Balance 11.0 mEq/L Invalid Interpretation Code 4.0 - 15.0 mEq/L AO ADM SS Eosinophil, Absolute 0.1 103/mcL Invalid Interpretation Code 0.0 - 0.4 10^3/mcL AO Workflow SS Eosinophils/100 WBC (Bld) 1.9 % Invalid Interpretation Code 0.0 - 7.0 % AO Workflow SS Erythrocyte distribution width (RBC) [Ratio] 14.2 % Invalid Interpretation Code 11.5 - 14.5 % AO Workflow SS GFR/1.73 sq M.predicted among blacks MDRD (S/P/Bld) [Vol rate/Area] 87 ml/min/1.73sqm Invalid Interpretation Code AO Chemistry S Comment on above: Interpretive Data: GFR Population mean for , Non- Americans Ages 20-29 = 116 mL/min/1.73 sq.m. Ages 30-39 = 107 mL/min/1.73 sq.m. Ages 40-49 = 99 mL/min/1.73 sq.m. Ages 50-59 = 93 mL/min/1.73 sq.m. Ages 60-69 = 85 mL/min/1.73 sq.m. Ages 70+ = 75 mL/min/1.73 sq.m. Chronic Kidney Disease: Less than 60 mL/min/1.73 square meters End Stage Renal Disease: Less than 15 mL/min/1.73 square meters GFR/1.73 sq M.predicted among non-blacks MDRD (S/P/Bld) [Vol rate/Area] 72 ml/min/1.73sqm Invalid Interpretation Code AO Chemistry S Comment on above: Interpretive Data: GFR Population mean for , Non- Americans Ages 20-29 = 116 mL/min/1.73 sq.m. Ages 30-39 = 107 mL/min/1.73 sq.m. Ages 40-49 = 99 mL/min/1.73 sq.m. Ages 50-59 = 93 mL/min/1.73 sq.m. Ages 60-69 = 85 mL/min/1.73 sq.m. Ages 70+ = 75 mL/min/1.73 sq.m. Chronic Kidney Disease: Less than 60 mL/min/1.73 square meters End Stage Renal Disease: Less than 15 mL/min/1.73 square meters Globulin 3.8 G/dL Invalid Interpretation Code AO ADM SS Glucose [Mass/Vol] 107 mg/dL Invalid Interpretation Code 70 - 105 mg/dL AO ADM SS Hematocrit (Bld) [Volume fraction] 39.3 % Invalid Interpretation Code 37.0 - 47.0 % AO Workflow SS Hemoglobin (Bld) [Mass/Vol] 12.9 G/dL Invalid Interpretation Code 12.0 - 16.0 G/dL AO Workflow SS Lipase [Catalytic activity/Vol] 62 U/L Invalid Interpretation Code 16 - 77 U/L AO ADM SS Lymphocyte, Absolute 2.7 103/mcL Invalid Interpretation Code 0.8 - 3.9 10^3/mcL AO Workflow SS Lymphocytes/100 WBC (Bld) 35.4 % Invalid Interpretation Code 10.0 - 50.0 % AO Workflow SS MCH (RBC) [Entitic mass] 27.2 pg Invalid Interpretation Code 27.0 - 31.2 pg AO Workflow SS MCHC 32.8 G/dL Invalid Interpretation Code 33.0 - 37.0 G/dL AO Workflow SS MCV (RBC) [Entitic vol] 82.8 fL Invalid Interpretation Code 80.0 - 94.0 fL AO Workflow SS Monocyte distribution width Auto (Bld) [Entitic vol] 18.22 1 Invalid Interpretation Code 0.00 - 20.00 AO Workflow SS Comment on above: Result Comment: For ED adult patients suspected of sepsis, MDW<=20.0 does not rule out sepsis or risk of sepsis Monocyte, Absolute 0.6 103/mcL Invalid Interpretation Code 0.2 - 1.0 10^3/mcL AO Workflow SS Monocytes/100 WBC (Bld) 7.4 % Invalid Interpretation Code 1.7 - 13.0 % AO Workflow SS Neutrophil, Absolute 4.2 103/mcL Invalid Interpretation Code 2.9 - 6.2 10^3/mcL AO Workflow SS Neutrophils/100 WBC (Bld) 54.8 % Invalid Interpretation Code 37.0 - 80.0 % AO Workflow SS Platelet mean volume (Bld) [Entitic vol] 7.1 fL Invalid Interpretation Code 7.4 - 10.4 fL AO Workflow SS Platelets (Bld) [#/Vol] 292 103/mcL Invalid Interpretation Code 130 - 400 10^3/mcL AO Workflow SS Potassium [Moles/Vol] 4.1 mmol/L Invalid Interpretation Code 3.5 - 5.1 mmol/L AO ADM SS Protein [Mass/Vol] 7.5 G/dL Invalid Interpretation Code 6.4 - 8.2 G/dL AO ADM SS RBC (Bld) [#/Vol] 4.74 106/mcL Invalid Interpretation Code 4.20 - 5.40 10^6/mcL AO Workflow SS Sodium [Moles/Vol] 138 mmol/L Invalid Interpretation Code 136 - 145 mmol/L AO ADM SS Urea nitrogen [Mass/Vol] 7 mg/dL Invalid Interpretation Code 7 - 18 mg/dL AO ADM SS Urea nitrogen/Creatinine [Mass ratio] 8 ratio Invalid Interpretation Code 7 - 27 ratio AO ADM SS WBC (Bld) [#/Vol] 7.7 103/mcL Invalid Interpretation Code 4.6 - 10.8 10^3/mcL AO Workflow SS LABORATORYOrdered By: Jamia Ortiz on 12-01-2022 Appearance (U) Clear (12/01/22 2:11 PM) Invalid Interpretation Code Clear AO Auto Urine SS Bilirubin Ql (U) Negative (12/01/22 2:11 PM) Invalid Interpretation Code Negative AO Auto Urine SS Color (U) Yellow (12/01/22 2:11 PM) Invalid Interpretation Code AO Auto Urine SS Glucose Test strip (U) [Mass/Vol] Negative Invalid Interpretation Code Negative AO Auto Urine SS Hemoglobin Auto test strip (U) [Mass/Vol] Trace *ABN* (12/01/22 2:11 PM) Invalid Interpretation Code Negative AO Auto Urine SS Ketones Ql (U) Negative Invalid Interpretation Code Negative AO Auto Urine SS UA Leuk Est Negative (12/01/22 2:11 PM) Invalid Interpretation Code Negative AO Auto Urine SS UA Nitrite Negative (12/01/22 2:11 PM) Invalid Interpretation Code Negative AO Auto Urine SS UA pH 6.5 (12/01/22 2:11 PM) Invalid Interpretation Code 5.0 - 8.0 AO Auto Urine SS UA Protein Negative Invalid Interpretation Code Negative AO Auto Urine SS UA Spec Grav 1.015 (12/01/22 2:11 PM) Invalid Interpretation Code 1.015-1.025 AO Auto Urine SS UA Specimen Type Clean Catch (12/01/22 2:11 PM) Invalid Interpretation Code AO Auto Urine SS UA Urobilinogen 0.2 E.U./dL Invalid Interpretation Code 0.2-1.0 AO Auto Urine SS LABORATORYOrdered By: Baudilio Velazquez on 12-01-2022 HCG ( test) Ql Negative (12/01/22 2:11 PM) Invalid Interpretation Code AO Manual Urine SS test (u) int Not detected Invalid Interpretation Code AO Manual Urine SS LIPon 12-01-2022 Lipase Level 62 U/L Normal 16-77 [facility] ([place]) Comment on above: Performed By: #### M DW, BMP, GFR, CBC, ADIFF, ANEU #### [address] [address] PREGUon 12-01-2022 HCG ( test) Ql (U) Negative Normal [facility] ([place]) Comment on above: Performed By: #### P REGU #### [facility] [address] [place] [address] test (u) int Not detected Invalid Interpretation Code [facility] ([place]) Comment on above: Performed By: #### P REGU #### [facility] [address] [place], [place] [id number] UAon 12-01-2022 Color (U) Yellow Normal [facility] ([place]) Comment on above: Performed By: #### M DW, BMP, GFR, CBC, ADIFF, ANEU #### [address] [address] Glucose (U) [Mass/Vol] Negative Normal Negative [facility] ([place]) Comment on above: Performed By: #### M DW, BMP, GFR, CBC, ADIFF, ANEU #### [address] [address] Ketones Ql (U) Negative Normal Negative [facility] ([place]) Comment on above: Performed By: #### M DW, BMP, GFR, CBC, ADIFF, ANEU #### [address] [address] UA Appear Clear Normal Clear [facility] ([place]) Comment on above: Performed By: #### M DW, BMP, GFR, CBC, ADIFF, ANEU #### [address] [address] UA Blood Trace Abnormal Negative [facility] ([place]) Comment on above: Performed By: #### M DW, BMP, GFR, CBC, ADIFF, ANEU #### [address] [address] UA Leuk Est Negative Normal Negative [facility] ([place]) Comment on above: Performed By: #### M DW, BMP, GFR, CBC, ADIFF, ANEU #### [address] [address] UA Nitrite Negative Normal Negative [facility] ([place]) Comment on above: Performed By: #### M DW, BMP, GFR, CBC, ADIFF, ANEU #### [address] [address] UA pH 6.5 Normal 5.0 - 8.0 [facility] ([place]) Comment on above: Performed By: #### M DW, BMP, GFR, CBC, ADIFF, ANEU #### [address] [address] UA Protein Negative Normal Negative [facility] ([place]) Comment on above: Performed By: #### M DW, BMP, GFR, CBC, ADIFF, ANEU #### [address] [address] UA Spec Grav 1.015 Normal 1.015-1.025 [facility] ([place]) Comment on above: Performed By: #### M DW, BMP, GFR, CBC, ADIFF, ANEU #### [address] [address] UA Specimen Type Clean Catch Normal [facility] ([place]) Comment on above: Performed By: #### M DW, BMP, GFR, CBC, ADIFF, ANEU #### [address] [address] UA Urobilinogen 0.2 E.U./dL Normal 0.2-1.0 [facility] ([place]) Comment on above: Performed By: #### M DW, BMP, GFR, CBC, ADIFF, ANEU #### [address] [address] Urobilinogen (U) [Mass/Vol] Negative Normal Negative [facility] ([place]) Comment on above: Performed By: #### M DW, BMP, GFR, CBC, ADIFF, ANEU #### [id number] [place], [place] [address] Bilirubin Test strip Ql (U)O rdered By: Rudy Branch on 11-23-2022 Bilirubin Ql (U) Negative Negative [facility] Culture, urineOrdered By: Krzysztof Branch on 11-23-2022 Bacteria identified Cx Nom (U) Positive [facility] Bacteria identified Cx Nom (U) Positive [facility] Ketones Test strip Ql (U)Ord ered By: Rudy Branch on 11-23-2022 Ketones Ql (U) Negative Negative [facility] Nitrite Test strip Ql (U)Ord ered By: Rudy Branch on 11-23-2022 Nitrite Ql (U) Negative Negative [facility] Protein Test strip Ql (U)Ord ered By: Rudy Branch on 11-23-2022 Protein Ql (U) Negative Negative [facility] Urine blood detectionOrdered By: Rudy Branch on 11-23-2022 RBC Ql (U) Negative Negative [facility] Urine clarityOrdered By: Yulissa Branch on 11-23-2022 Clarity (U) Clear Clear [facility] Urine color determinationOrd ered By: Rudy Branch on 11-23-2022 Color (U) Straw Yellow [facility] Urine glucose detectionOrder ed By: Rudy Branch on 11-23-2022 Glucose Ql (U) Normal mg/dl Normal [facility] Urine leukocyte esterase det ection by dipstickOrdered By: Rudy Branch on 11-23-2022 Leukocyte esterase Test strip Ql (U) Negative Negative [facility] Urine pHOrdered By: Rudy ji on 11-23-2022 pH (U) 6.0 [pH] 5.0 - 8.0 [facility] Urine specific gravity measu rementOrdered By: Rudy Branch on 11-23-2022 Specific gravity (U) [Rel density] 1.010 1.002-1.030 [facility] Urobilinogen Auto test strip Ql (U)Ordered By: Rudy Branch on 11-23-2022 Urobilinogen Ql (U) Normal mg/dl Normal [facility] URINALYSIS, DIPSTICK ONLYon 11-14-2022 Bilirubin Ql (U) Negative Negative [facility] Clarity (Unsp spec) Clear Clear [facility] Color (U) Yellow Yellow [facility] Glucose Test strip (U) [Mass/Vol] Negative Negative [facility] Hemoglobin Ql (U) Negative Negative [facility] Ketones Ql (U) Negative Negative [facility] Leukocyte esterase Test strip Ql (U) Negative Negative [facility] Nitrite Ql (U) Negative Negative [facility] pH (U) 6.0 [pH] 5.0 - 8.0 [facility] Protein (U) [Mass/Vol] Negative Negative [facility] Specific gravity (U) [Rel density] 1.010 1.005 - 1.030 [facility] Urobilinogen Ql (U) Negative Negative [facility] CNPNon 11-12-2022 CNPN Telephone ([facility]) KAYA ARCE ([id number]) 1985 F FNS Date Time Provider Department 11/12/22 SERJIO THOMPSON [facility] During your visit today, we recorded the following information about you: Shilo Merida RN 11/12/2022 11:35 AM Signed Pt care plan reviewed. Faxed to [facility]. Scanned into [employer]. Shilo Merida RN Allergies As of Date: 11/12/2022 Noted Allergy Reaction EUCALYPTUS 06/07/2007 4 - Hives 7 - Swelling 10 - Anaphylaxis 12 - Shortness of Breath 14 - Other: See Comments Comments: Tachycardia; laryngeal swelling KEFLEX (CEPHALEXIN) 05/09/2002 4 - Hives 10 - Anaphylaxis Comments: Tolerates amoxicillin BEES 06/18/2010 4 - Hives 7 - Swelling CARDIZEM (DILTIAZEM HCL) 05/30/2018 5 - Intolerance Comments: Spikes BP DOXYCYCLINE 09/26/2008 8 - GI Upset Comments: Not able to tolerate due to GI effects LATEX 08/15/2008 7 - Swelling TIZANIDINE 12/04/2010 1 - Mental Status Change Comments: Low HR, cold and clammy (subjective only) Date Reviewed: 09/11/2022 Reviewed by: Lilia Laurent PA-C - Fully Assessed Reason for Visit: Physical Therapy [503] Prescriptions as of 11/12/2022 - famotidine (PEPCID) 40 mg tablet Take 1 tablet by mouth every afternoon. - nystatin (MYCOSTATIN) powder APPLY TO AFFECTED AREA TWICE DAILY. - tretinoin (RETIN-A) 0.05 % cream Apply pea-sized amount to entire face once nightly. Begin 3 times weekly and and gradually increase frequency to nightly as tolerated. - spironolactone (ALDACTONE) 50 mg tablet Take 1 tablet by mouth once daily. 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 Normal [facility] Absolute lymphocyte counton 11-06-2022 Lymphocytes Auto (Unsp spec) [#/Vol] 2.88 10*3/uL 0.83-4.51 [facility] Basophil percentageon 2022 Basophils/100 WBC (Bld) 0.5 % 0-1 [facility] Cholesterol [Mass/Vol] 197 mg/dL <200 [facility] Comment on above: <200 mg/dL Desirable 200-240 mg/dL Borderline >240 mg/dL High Risk Eosinophils/100 WBC (Bld) 1.7 % 0-5 [facility] Neutrophils (Bld) [#/Vol] 5.2 10*3/uL 2.0-7.7 [facility] Neutrophils/100 WBC (Bld) 58.0 % 47-70 [facility] Triglyceride [Mass/Vol] 258 mg/dL <199 [facility] Comment on above: The drugs N-Acetylcy steine and Metamizole may falsely depress this assay.Serum Triglycerides Reference Interval Normal <150 mg/dL Borderline high 150 - 199 mg/dL High 200 - 499 mg/dL Very High > or = 500 mg/dL WBC (Bld) [#/Vol] 8.9 10*3/uL 4.4-11.0 [facility] Blood erythrocytes count (nu mber/volume)on 11-06-2022 RBC (Bld) [#/Vol] 4.71 10*6/uL 4.2-5.4 [facility] Blood hemoglobin measurement (mass/volume)on 11-06-2022 Hemoglobin (Bld) [Mass/Vol] 12.9 g/dL 12.0-15.0 [facility] Blood lymphocytes/100 leukoc yteson 11-06-2022 Lymphocytes/100 WBC (Bld) 32.5 % 19-41 [facility] Blood monocytes/100 leukocyt eson 11-06-2022 Monocytes/100 WBC (Bld) 7.0 % 0-10 [facility] Blood platelet mean volumeon 11-06-2022 Platelet mean volume (Bld) [Entitic vol] 9.1 fL 6.2-12.0 [facility] Determination of erythrocyte mean corpuscular volume (MCV)on 11-06-2022 MCV (RBC) [Entitic vol] 86.6 fL 81-99 [facility] Hematocrit Auto (Bld) [Volum e fraction]on 11-06-2022 Hematocrit (Bld) [Volume fraction] 40.8 % 37-47 [facility] Laboratory - Chemistry and C hemistry - challengeon 11-06-2022 ALT [Catalytic activity/Vol] 26 U/L 13-56 [facility] Laboratory - Hematology and Cell countson 11-06-2022 Erythrocyte distribution width (RBC) [Entitic vol] 40.9 fL 35.1-43.9 [facility] Erythrocyte distribution width (RBC) [Ratio] 13.1 % 11.6-14.6 [facility] Immature granulocytes/100 WBC (Bld) 0.300 % 0.0-0.9 [facility] Comment on above: IG% - Immature Granu locytes (promyelocytes, myelocytes and metamyelocytes) > 1% indicates that a LEFT SHIFT is Present. MCH (RBC) [Entitic mass] 27.4 pg 27.0-32.0 [facility] Nucleated RBC/100 WBC (Bld) [Ratio] 0 % 0-5 [facility] MCHC Auto (RBC) [Mass/Vol]on 11-06-2022 MCHC (RBC) [Mass/Vol] 31.6 g/dL 32-36 [facility] No Panel Informationon 11-06 Dehydroepiandrosterone Sulfate 119.0 ug/dL 57.3-279.2 [facility] Platelets bldon 11-06-2022 Platelets (Bld) [#/Vol] 302 10*3/uL 150-450 [facility] Serum or plasma cholesterol in HDL measurement (mass/volume)on 11-06-2022 Cholesterol in HDL [Mass/Vol] 47 mg/dL >40 [facility] Comment on above: The drugs N-Acetylcy steine and Metamizole may falsely depress this assay. Reference Range HDL <40 mg/dL Low HDL Cholesterol HDL >or= 60 mg/dL High HDL Cholesterol Serum or plasma cholesterol in VLDL measurement (mass/volume)on 11-06-2022 Cholesterol in VLDL [Mass/Vol] 52 mg/dL 5-40 [facility] Serum or plasma low density lipoprotein (LDL) cholesterol measurement (mass/volume)on 11-06-2022 Cholesterol in LDL [Mass/Vol] 98 mg/dL 0-130 [facility] Serum or plasma testosterone free measurement (mass/volume)on 11-06-2022 Testosterone Free [Mass/Vol] 1.4 pg/mL 0.0-4.2 [facility] Comment on above: Performed at: [facility] [address] [id number] Director: El Case PhD, Phone: [phone] at: [facility] [id number] Director: Miguel Fay MD, Phone: [phone] Thin prep Papanicolaou smear with manual screeningon 11-06-2022 Thin prep Papanicolaou smear with manual screening 17 U/L 15-37 [facility] Helicobacter pylori breath t est in pediatric patientOrdered By: Rudy Branch on 10-21-2022 CO2 post dose urea Ql (Exhl gas) Negative Negative [facility] Comment on above: Performed at: [address] [place] [id number] Director: El Case PhD, Phone: [phone] CNOVon 10-20-2022 CNOV Office Visit (LOGAN Estrada) KAYA ARCE ([id number]) 1985 F FNS Date Time Provider Department 10/20/22 10:00 AM SERJIO THOMPSON [facility] During your visit today, we recorded the following information about you: Pulse Blood pressure Weight Height 72/minute 118/82 85 kg 1.6 m Serjio Thompson MD 10/20/2022 11:53 AM Signed NEUROSURGERY CONSULT NOTE Serjio Thompson MD Neurosurgery 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 Normal [facility] XR CERVICAL 4V AP/LAT/FLX/EX Ton 10-20-2022 XR CERVICAL 4V AP/LAT/FLX/EXT * * *Final Report* * * DATE OF EXAM: Oct 20 2022 11:27AM [id number] - XR CERVICAL 4V AP/LAT/FLX/EXT / PROCEDURE REASON: Radiculopathy, cervical region * * * * Physician Interpretation * * * * EXAM TITLE: XR CERVICAL 4V AP/LAT/FLX/EXT DATE: 10/24/2022 12:29 PM INDICATION: Neck pain COMPARISON: None. FINDINGS: No fracture or dislocation. Alignment is normal and does not change with flexion or extension. Soft tissues are normal. IMPRESSION: Within normal limits. Youth Services Specialist: GORDO Transcribe Date/Time: Oct 24 2022 12:29P Dictated by : SEMAJ ROBLERO MD This examination was interpreted and the report reviewed and electronically signed by: SEMAJ ROBLERO MD on Oct 24 2022 12:30PM EST [id number] Normal [facility] XR LUMBAR 4V AP/LAT/ FLEX/EX Ton 10-20-2022 XR LUMBAR 4V AP/LAT/ FLEX/EXT * * *Final Report* * * DATE OF EXAM: Oct 20 2022 11:27AM [id number] - XR LUMBAR 4V AP/LAT/ FLEX/EXT / PROCEDURE REASON: Radiculopathy, lumbar region * * * * Physician Interpretation * * * * EXAM TITLE: XR LUMBAR 4V AP/LAT/ FLEX/EXT DATE: 10/24/2022 12:28 PM INDICATION: Lumbar spinal radiculopathy COMPARISON: 12/05/2019 FINDINGS: No fractures or dislocations. Alignment is normal and does not change with flexion or extension. Sacroiliac joints are symmetric. Soft tissues are normal. There is mild lower lumbar spinal facet joint arthrosis. IMPRESSION: Mild lower lumbar spinal facet joint arthrosis which appears relatively stable. Youth Services Specialist: [facility] Transcribe Date/Time: Oct 24 2022 12:28P Dictated by : SEMAJ ROBLERO MD This examination was interpreted and the report reviewed and electronically signed by: SEMAJ ROBLERO MD on Oct 24 2022 12:29PM EST [id number] Normal [facility] Clinic Note - Intakeon 10-06 Clinic Note - Intake Patient Visit Information: Visit TypeTelephone Visit: A telephone visit (audio only) between the patient (at the originating site) and the provider (at the distant site) was utilized to provide this telehealth service. Source of Informationpatient Admission Information: Admission Since Last VisitNo Vital Signs: Height in cm158.8 centimeter(s) Pain Screening: Patient States Painyes Current Pain Score (0-10)5 Pain Description/Locationlo wer pelvis started today Pain Scale UsedNumeric (0-10) Allergies: Keflex: Drug, Anaphylaxis, Active Outpatient Medication Profile: * Patient Currently Takes Medications as of 06-Oct-2022 14:59 documented in Structured Notes Vitamin B6: Last Dose Taken: Biotin: Last Dose Taken: Multi-Day Plus Minerals oral tablet: Last Dose Taken: , 1 tab(s) orally once a day Vitamin D3: Last Dose Taken: atenolol 25 mg oral tablet: Last Dose Taken: , 1 tab(s) orally once a day Pepcid AC: Claritin 10 mg oral tablet: 1 tab(s) orally once a day Notification: NotificationsAnnual Screens Due Dates Advanced Directives: Sep 08, 2023 Family Violence: Sep 08, 2023 Depression (Due every 6 months for ONC only; all others use Annual date): Mar 07, 2023 Substance Use - Alcohol: Sep 08, 2023 Substance Use - Drugs: Sep 08, 2023 Nutrition: Sep 08, 2023 Learning: Sep 08, 2023 Travel History: COVID-19 Screening Completedno exposure or symptoms Travel or ExposureNO travel to International locations in the past 30 days Falls: Have you fallen in the last 6 monthsno Do you have a fear of fallingno Do you feel you need assistanceno Is the patient using an assistive deviceno Not a falls riskimplement environmental risk factors interventions Spiritual/Procedural: Spiritual/cultural/rel igious practices important for us to knowno Oncology Nutrition: During the past 2 weeks, weight has(0) not changed Intake past month, compared to normal intake(0) unchanged Problems keeping me from eating past 2 weeks (0) no problem eating In the past month, my activity/functioning rating is(0) normal with no limitations Clinician notifiedno Score 6 or > notify clinician0 Electronic Signatures: Cary Fournier) (Signed 06-Oct-2022 15:00) Authored: Patient Visit Information, Vital Signs, Allergies, Outpatient Medication Profile, Notification, Travel History, Falls, Spiritual/Procedural, Oncology Nutrition Last Updated: 06-Oct-2022 15:00 by Cary Fournier) Normal [facility] Absolute lymphocyte countOrd ered By: Rudy Jose Carlos on 10-05-2022 Lymphocytes Auto (Unsp spec) [#/Vol] 2.45 10*3/uL 0.83-4.51 [facility] Basophil percentageOrdered B y: Rudy Branch on 10-05-2022 Basophil percentage 0 SEEN /hpf 0-5 [facility] Basophils/100 WBC (Bld) 0.5 % 0-1 [facility] Bilirubin [Mass/Vol] 0.20 mg/dL 0.20-1.00 [facility] Comment on above: For patients on eltr ombopag therapy, use of Dimension [employer] TBIL is not recommended. Chloride [Moles/Vol] 109 mmol/L 98-107 [facility] Eosinophils/100 WBC (Bld) 3.0 % 0-5 [facility] Glucose [Mass/Vol] 94 mg/dL 74-106 [facility] Neutrophils (Bld) [#/Vol] 4.5 10*3/uL 2.0-7.7 [facility] Neutrophils/100 WBC (Bld) 58.5 % 47-70 [facility] Potassium [Moles/Vol] 3.7 mmol/L 3.5-5.1 [facility] Protein [Mass/Vol] 7.4 g/dL 6.4-8.2 [facility] Sodium [Moles/Vol] 139 mmol/L 136-145 [facility] WBC (Bld) [#/Vol] 7.6 10*3/uL 4.4-11.0 [facility] Bilirubin Test strip Ql (U)O rdered By: Rudy Branch on 10-05-2022 Bilirubin Ql (U) Negative Negative [facility] Blood erythrocytes count (nu mber/volume)Ordered By: Rudy Branch on 10-05-2022 RBC (Bld) [#/Vol] 4.57 10*6/uL 4.2-5.4 [facility] Blood hemoglobin measurement (mass/volume)Ordered By: Rudy Branch on 10-05-2022 Hemoglobin (Bld) [Mass/Vol] 12.8 g/dL 12.0-15.0 [facility] Blood lymphocytes/100 leukoc ytesOrdered By: Rudy Branch on 10-05-2022 Lymphocytes/100 WBC (Bld) 32.1 % 19-41 [facility] Blood monocytes/100 leukocyt esOrdered By: Rudy rBanch on 10-05-2022 Monocytes/100 WBC (Bld) 5.9 % 0-10 [facility] Blood platelet mean volumeOr dered By: Rudy Branch on 10-05-2022 Platelet mean volume (Bld) [Entitic vol] 9.8 fL 6.2-12.0 [facility] Clinic Note - [facility] Onc-Teleph one Visiton 10-05-2022 Clinic Note - [facility] On[facility]-Telephone Visit Patient Visit Information: Onco- Fertility: Visit Type: Telephone Visit: A telephone visit (audio only) between the patient (at the originating site) and the provider (at the distant site) was utilized to provide this telehealth service. Verbal Consent for Encounter: Verbal consent was requested and obtained from patient, or from parent/guardian if minor, on this date for a telehealth visit. Patient Visit Info: Last 3 Weights & Heights: Date: Weight/Scale Type:Height: 08-Sep-2022 10:4085.1 kg 158.8 cm History of Present Illness: Patient Information: KAYA ARCE is a 37 year old Female Chief Complaint: ct review Treatment History: Dr. Hellen Thomas [facility] Dr. Mia Meehan Second opinion. 37 yo who carries a history of endometriosis and chronic pelvic pain followed by [facility] presents for second opinion on the management [...] for metastatic disease. Repeat CA125 was 22. [facility] tumor board review and consultation with Dr. Colin: Serous phenotype confirmed. Dx: Low grade serous epithelial proliferation. Not meeting diagnostic criteria for low grade serous carcinoma. Elevated risk for possible peritoneal based low grade serous carcinoma was acknowledged. Surveillance recommended. Today reports continued pelvic pain. Migratory but usually low. FH: Mother with breast cancer. PMH Endometriosis Anal fissure Chrons disease Diverticulosis PSH Cholecystectomy sigmoidoscopy Social History Never smoked Denies ETOH, drug use Father: HTN, DM,kidney disease Grandmother: breast cancer Grandfather: Leukemia Allergies and Outpatient Medication Profile: Allergies: Keflex: Drug, Anaphylaxis, Active Outpatient Medication Profile: * Patient Currently Takes Medications as of 08-Sep-2022 10:42 documented in Structured Notes Vitamin B6: Biotin: Multi-Day Plus Minerals oral tablet: 1 tab(s) orally once a day Vitamin D3: atenolol 25 mg oral tablet: 1 tab(s) orally once a day pantoprazole 40 mg oral delayed release tablet: 1 tab(s) orally once a day Interval History, ROS and Problem List: Problem List: Medical History: Encounter for counseling: ICD-10: Z71.9, Status: Active Abnormal biopsy result: ICD-10: R89.7, Status: Active Pain in female pelvis: ICD-10: R10.2, Status: Active Elevated CA-125: ICD-10: R97.1, Status: Active Dysuria: ICD-10: R30.0, Status: Active Family History: Family History: No Family History items are recorded in the problem list. Social History: Smoking: Smoking Statusnever smoker Results: Lab Results: Lab Results: Results: CEA date/time 13-Elia-2023 11:38 N/A CA19-9 date/time 08-Sep-2022 11:38 N/A CA125 date/time 08-Sep-2022 11:38 11.6 InhibinA date/time 08-Sep-2022 11:38 N/A InhibinB date/time 08-Sep-2022 11:38 N/A LDH date/time 11-Dec-2020 08:13 N/A AFP date/time 08-Sep-2022 11:38 N/A b-HcG date/time 08-Sep-2022 11:38 N/A Radiology Result: Results CT Abdomen and Pelvis w/wo IV Contrast [Sep 24 2022 10:56AM] FINAL REPORT Interpreted by: AKASH RUSSELL CHRISTOPHER, MD 09/24/22 10:54 Facility: [facility] Patient Name: KAYA ARCE STUDY: CT ABDOMEN AND PELVIS W IV CONTRAST; 09/23/2022 10:54 am INDICATION: Disseminated malignant neoplasm, unspecified. COMPARISON: None. ACCESSION NUMBER(S): [id number] ORDERING CLINICIAN: MARIE STYLES TECHNIQUE: Contiguous axial images were obtained at 3mm slice thickness through the abdomen and pelvis following intravenous contrast administration. Coronal and sagittal reconstructions at 3 mm slice thickness were performed. 75 milliliter of OMNIPAQUE 350 were administered intravenously without immediate complication. FINDINGS: LOWER CHEST: Evaluation of the visualized lung bases is grossly unremarkable. The heart is within normal limits for size. ABDOMEN: LIVER: The liver is within normal limits for appearance, without evidence of focal masses. BILE DUCTS: No definite intra or extrahepatic biliary dilatation is identified. GALLBLADDER: The ga (more content not included)... Normal [facility] Determination of erythrocyte mean corpuscular volume (MCV)Ordered By: Rudy Branch on 10-05-2022 MCV (RBC) [Entitic vol] 86.2 fL 81-99 [facility] Erythrocyte sedimentation ra teOrdered By: Rudy Branch on 10-05-2022 ESR (Bld) [Velocity] 4 mm/h 0-30 [facility] Hematocrit Auto (Bld) [Volum e fraction]Ordered By: Rudy Branch on 10-05-2022 Hematocrit (Bld) [Volume fraction] 39.4 % 37-47 [facility] Ketones Test strip Ql (U)Ord ered By: Rudy Branch on 10-05-2022 Ketones Ql (U) Negative Negative [facility] Laboratory - Chemistry and C hemistry - challengeOrdered By: Rudy Branch on 10-05-2022 ALP [Catalytic activity/Vol] 79 U/L 45-117 [facility] ALT [Catalytic activity/Vol] 24 U/L 13-56 [facility] CO2 [Moles/Vol] 24.0 mmol/L 21.0-32.0 [facility] Globulin (S) [Mass/Vol] 3.9 g/dL 2.2-4.2 [facility] Lipase [Catalytic activity/Vol] 61 U/L 13-75 [facility] Comment on above: Please note:LIPASE r evised reference range effective 22. New Lipase methodology. Expected to produce lower values than the previous assay method. NEW Reference Range: 13 - 75 U/L Urea nitrogen/Creatinine [Mass ratio] 10.6 mg/mg 10-20 [facility] Laboratory - Hematology and Cell countsOrdered By: Rudy Branch on 10-05-2022 Erythrocyte distribution width (RBC) [Entitic vol] 40.2 fL 35.1-43.9 [facility] Erythrocyte distribution width (RBC) [Ratio] 13.0 % 11.6-14.6 [facility] Immature granulocytes/100 WBC (Bld) 0.000 % 0.0-0.9 [facility] Comment on above: IG% - Immature Granu locytes (promyelocytes, myelocytes and metamyelocytes) > 1% indicates that a LEFT SHIFT is Present. MCH (RBC) [Entitic mass] 28.0 pg 27.0-32.0 [facility] Nucleated RBC/100 WBC (Bld) [Ratio] 0 % 0-5 [facility] MCHC Auto (RBC) [Mass/Vol]Or dered By: Rudy Branch on 10-05-2022 MCHC (RBC) [Mass/Vol] 32.5 g/dL 32-36 [facility] Mucus LM Ql (Urine sed)Order ed By: Rudy Branch on 10-05-2022 Mucus Ql (Urine sed) 1+ /hpf [facility] Comment on above: Previous reported re sult: 0 SEEN /hpfEdited by: VENECIA on 10/05/22:1900 AMENDED REPORT 10/05/221900 MUCUS, URINE previously reported as: 0 SEEN /hpf Nitrite Test strip Ql (U)Ord ered By: Rudy Branch on 10-05-2022 Nitrite Ql (U) Negative Negative [facility] No Panel InformationOrdered By: Rudy Branch on 10-05-2022 Estimated GFR (MDRD) Amer 109 mL/min >60 [facility] Comment on above: GFR Calc Estimated GFR (MDRD) Non-Af Amer 90 mL/min >60 [facility] Comment on above: Non- GFR Calc Platelets bldOrdered By: Yulissa Branch on 10-05-2022 Platelets (Bld) [#/Vol] 304 10*3/uL 150-450 [facility] Protein Test strip Ql (U)Ord ered By: Rudy Branch on 10-05-2022 Protein Ql (U) Negative Negative [facility] Serum or plasma C reactive p rotein measurement (mass/volume)Ordered By: Rudy Branch on 10-05-2022 CRP [Mass/Vol] 8.46 mg/L 0.0-3.0 [facility] Comment on above: C-Reactive Protein ( CRP) provides useful information for thediagnosis, therapy and monitoring of inflammatory processesand associated diseases. For the evaluation of Relative Riskfor Cardiovascular Disease, a High Sensitivity CRP (HSCRP)should be ordered. Serum or plasma albumin kaylan urement (mass/volume)Ordered By: Rudy Branch on 10-05-2022 Albumin [Mass/Vol] 3.5 g/dL 3.2-5.0 [facility] Serum or plasma albumin/glob ulin mass ratioOrdered By: Rudy Branch on 10-05-2022 Albumin/Globulin [Mass ratio] 0.9 {ratio} 0.9-2.4 [facility] Serum or plasma calcium kaylan urement (mass/volume)Ordered By: Rudy Branch on 10-05-2022 Calcium [Mass/Vol] 8.9 mg/dL 8.5-10.1 [facility] Serum or plasma creatinine m easurement (mass/volume)Ordered By: Rudy Branch on 10-05-2022 Creatinine [Mass/Vol] 0.76 mg/dL 0.55-1.02 [facility] Comment on above: The validity of the calculated GFR & GFRAA in patients over 70 years has not been determined. Clinical correlation is essential. Serum or plasma urea nitroge n measurement (mass/volume)Ordered By: Rudy Branch on 10-05-2022 Urea nitrogen [Mass/Vol] 8 mg/dL 7-18 [facility] Squamous epithelial cells de tection in urine sediment by light microscopyOrdered By: Rudy Branch on 10-05-2022 Epithelial cells.squamous LM Ql (Urine sed) 0-5 SEEN /hpf 5-10 [facility] Comment on above: Previous reported re sult: 0 SEEN /hpfEdited by: VENECIA on 10/05/22:1900 AMENDED REPORT 10/05/221900 SQUAM EPI previously reported as: 0 SEEN /hpf Thin prep Papanicolaou smear with manual screeningOrdered By: Rudy Branch on 10-05-2022 Thin prep Papanicolaou smear with manual screening 19 U/L 15-37 [facility] Thin prep Papanicolaou smear with manual screening 6 5-15 [facility] Urine blood detectionOrdered By: Rudy Branch on 10-05-2022 RBC Ql (U) 10 /ul Negative [facility] RBC Ql (U) 0-5 SEEN /hpf 0-5 [facility] Comment on above: Previous reported re sult: 0 SEEN /hpfEdited by: VEENCIA on 10/05/22:1 AMENDED REPORT 10/05/221900 RBC-UA previously reported as: 0 SEEN /hpf Urine clarityOrdered By: Yulissa Branch on 10-05-2022 Clarity (U) Sl. Cloudy Clear [facility] Urine color determinationOrd ered By: Rudy Branch on 10-05-2022 Color (U) Yellow Yellow [facility] Urine glucose detectionOrder ed By: Rudy Branch on 10-05-2022 Glucose Ql (U) Normal mg/dl Normal [facility] Urine leukocyte esterase det ection by dipstickOrdered By: Rudy Branch on 10-05-2022 Leukocyte esterase Test strip Ql (U) Negative Negative [facility] Urine pHOrdered By: Rudy ji on 10-05-2022 pH (U) 5.0 [pH] 5.0 - 8.0 [facility] Urine sediment bacteria coun t by microscopy (number/high power field)Ordered By: Rudy Jose Carlos on 10-05-2022 Bacteria LM.HPF (Urine sed) [#/Area] 0 /[HPF] None Seen [facility] Urine specific gravity measu rementOrdered By: Rudy Jose Carlos on 10-05-2022 Specific gravity (U) [Rel density] 1.020 1.002-1.030 [facility] Urobilinogen Auto test strip Ql (U)Ordered By: Rudy Jose Carlos on 10-05-2022 Urobilinogen Ql (U) Normal mg/dl Normal [facility] CT ABDOMEN AND PELVIS W IV C ONTRASTon 09-23-2022 CT ABDOMEN AND PELVIS W IV CONTRAST Patient Name: KAYA ARCE STUDY: CT ABDOMEN AND PELVIS W IV CONTRAST; 09/23/2022 10:54 am INDICATION: Disseminated malignant neoplasm, unspecified. COMPARISON: None. ACCESSION NUMBER(S): [id number] ORDERING CLINICIAN: MARIE STYLES TECHNIQUE: Contiguous axial images were obtained at 3mm slice thickness through the abdomen and pelvis following intravenous contrast administration. Coronal and sagittal reconstructions at 3 mm slice thickness were performed. 75 milliliter of OMNIPAQUE 350 were administered intravenously without immediate complication. FINDINGS: LOWER CHEST: Evaluation of the visualized lung bases is grossly unremarkable. The heart is within normal limits for size. ABDOMEN: LIVER: The liver is within normal limits for appearance, without evidence of focal masses. BILE DUCTS: No definite intra or extrahepatic biliary dilatation is identified. GALLBLADDER: The gallbladder is surgically absent. PANCREAS: The pancreas is within normal limits for appearance, without evidence of focal masses. SPLEEN: The spleen is within normal limits for size. No focal splenic mass is seen. ADRENAL GLANDS: No definite adrenal nodules or masses are seen bilaterally. KIDNEYS AND URETERS: There is no hydronephrosis, hydroureter or ureteral calculus identified bilaterally. Small nonobstructive calculi are seen in the kidneys bilaterally. No definite focal renal mass is seen. PELVIS: BLADDER: The urinary bladder is grossly unremarkable for CT appearance. REPRODUCTIVE ORGANS: The patient is status post hysterectomy. BOWEL: The colon and small bowel are within normal limits for course, caliber and appearance, without evidence of wall thickening or obstruction. The appendix is decompressed. No CT evidence of acute diverticulitis or appendicitis is seen. VESSELS: The abdominal aorta is within normal limits for course, caliber and appearance, without evidence of aneurysm. PERITONEUM/RETROPERITO NEUM/LYMPH NODES: There is no free intraperitoneal air or free fluid identified. No gross mesenteric or retroperitoneal lymphadenopathy is identified. BONE AND SOFT TISSUE: There is no evidence of acute fracture identified. No evidence of abdominal wall mass or hernia is identified. IMPRESSION: 1. No evidence of bowel obstruction, free intraperitoneal air or abnormal intra-abdominal fluid collection. 2. No discrete mass or lymphadenopathy identified. Electronically signed by: AKASH RUSSELL MD Normal [facility] CANCER AG 125on 09-08-2022 Cancer Ag 125 Qn 11.6 [arb'U]/mL Normal 0.0 - 30.2 [facility] Comment on above: Result Comment: CA 1 25 testing is performed by chemiluminescent immunoassay using the [employer] Values obtained with different analytic methods cannot be used interchangeably. . Serum CA 125 measurement is intended for use as an aid in monitoring patients previously treated for ovarian cancer. This assay is not intended for screening or diagnosis of cancer in the general population. The results must not be used as the sole means for clinical diagnosis or patient management decisions. Performed By: #### C A125 #### [facility] [id number] [place] [address] Clinic Note - Intakeon 09-08 Clinic Note - Intake Patient Visit Information: Visit TypeNew Visit Source of Informationpatient Admission Information: Admission Since Last VisitNo Vital Signs: Temp (degrees C)36.3 degrees C Heart Rate (beats/min)72 beats per minute Respiration (breaths/min)16 breath per minute BP Systolic (mm Hg)117 mmHg BP Diastolic (mm Hg)79 mmHg BP Mean (mm Hg)91 mmHg Height in cm158.8 centimeter(s) Height Methodmeasured Heightstanding Weight in kg85.1 kilogram(s) Weightstanding BMI (kg/m2)33.7 kg/M2 BSA (m2)1.93 M2 Nursing Verification [id number] Nursing Verification Height in cm158.8 centimeter(s) Nursing Verification Commentheight verification SpO2 (%)100 % SpO2 Patient Onroom air Pain Screening: Patient States Painno (0) Allergies: Keflex: Drug, Anaphylaxis, Active Outpatient Medication Profile: * Patient Currently Takes Medications as of 08-Sep-2022 10:42 documented in Structured Notes Vitamin B6: Last Dose Taken: Biotin: Last Dose Taken: Multi-Day Plus Minerals oral tablet: Last Dose Taken: , 1 tab(s) orally once a day Vitamin D3: Last Dose Taken: atenolol 25 mg oral tablet: Last Dose Taken: , 1 tab(s) orally once a day pantoprazole 40 mg oral delayed release tablet: Last Dose Taken: , 1 tab(s) orally once a day Notification: NotificationsAnnual Screens Due Dates Advanced Directives: Sep 08, 2023 Family Violence: Sep 08, 2023 Depression (Due every 6 months for ONC only; all others use Annual date): Mar 07, 2023 Substance Use - Alcohol: Sep 08, 2023 Substance Use - Drugs: Sep 08, 2023 Nutrition: Sep 08, 2023 Learning: Sep 08, 2023 Travel History: COVID-19 Screening Completedno exposure or symptoms Travel or ExposureNO travel to International locations in the past 30 days Falls: Have you fallen in the last 6 monthsno Do you have a fear of fallingno Do you feel you need assistanceno Is the patient using an assistive deviceno Spiritual/Procedural: Spiritual/cultural/rel igious practices important for us to knowno Alcohol, prescription or recreational drugs taken this AM for non medical reasonsno Oncology Nutrition: During the past 2 weeks, weight has(0) not changed Intake past month, compared to normal intake(0) unchanged Problems keeping me from eating past 2 weeks (0) no problem eating In the past month, my activity/functioning rating is(0) normal with no limitations Clinician notifiedno Score 6 or > notify clinician0 Adv Dir: Living Willno Healthcare POAno Declaration of Mental Health Treatmentno Living Will Formsdeclines more information Healthcare POA Formsdeclined more information Mental Health Formsdeclines more information Violence: Are you or have you been threatened or abused physically,emotionally or sexually abused by anyoneno Do you feel UNSAFE going back to the place you are livingno Depression: Past 2 wks: [place] down, depressed or hopelessno Past 2 wks: [place] little interest/pleasure doing thingsno Any Thoughts of Harming Othersno In the Past Month: Have you wished you were or could go to sleep and not wake upno In the Past Month: Have you had any actual thoughts of killing yourselfno Lifetime: Have you ever done, started to do, or prepared to do anything to end your lifeno Substance: How many times in the past year have you had 4 or more drinks within 24 hours0 Patient Declined to Answerno How many times in past year have you used recreational or prescription drugs for non-medical reasons0 Nutrition/Learning: In the past month, was there any day when you or anyone in your family went hungry because you didn't have enough foodno Primary LanguageEnglish Do you, or others today, need extra help due to problems with hearing,speaking, seeing, moving around or learningno Other Cameron Learnerno Electronic Signatures: Ginger Wheatley (RN) (Signed 08-Sep-2022 11:04) Authored: Vital Signs, Notification Co-Signer: Patient Visit Information, Vital Signs, Allergies, Outpatient Medication Profile, Notification, Travel History, Falls, Spiritual/Procedural, Oncology Nutrition, Adv Dir, Violence, Depression, Substance, Nutrition/Learning Amy Angel (PCNA) (Signed 08-Sep-2022 10:45) Authored: Patient Visit Information, Vital Signs, Allergies, Outpatient Medication Profile, Notification, Travel History, Falls, Spiritual/Procedural, Oncology Nutrition, Adv Dir, Violence, Depression, Substance, Nutrition/Learning Last Updated: 08-Sep-2022 11:04 by Ginger Wheatley (RN) Normal [facility] URINE CULTURE,BACTERIALon URINE CULTURE,BACTERIAL PATIENT: KAYA ARCE LOCATION: [facility] BILL#: [id number] : 81 AGE: SEX: F ORDERED BY: MARIE STYLES SOURCE: URINE COLLECTED: 09/08/22 13:30 ANTIBIOTICS AT [facility].: RECEIVED : 09/08/22 21:42 SITE: [facility] URINE CULTURE,BACTERIAL FINAL 09/09/22 14:39 NO SIGNIFICANT GROWTH. Normal [facility] Comment on above: Performed By: #### U [facility] #### [facility] [address] [place] [address] Clinic Note - [place] Onc-New Vi boo 09-07-2022 Clinic Note - [place] Onc-New Visit Patient Visit Information: Onco- Fertility: Visit Type: New Visit Has the patient been informed about the impact their treatment may have on fertility: Does not have a cancer diagnoses. 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 Hellen Thomas [facility] Dr. Mia Meehan Second opinion. 37 yo who carries a history of [...] with breast cancer. PMH Endometriosis Anal fissure Chrons disease Diverticulosis PSH Cholecystectomy sigmoidoscopy Social History Never smoked Denies ETOH, drug use Father: HTN, DM,kidney disease Grandmother: breast cancer Grandfather: Leukemia Allergies and Outpatient Medication Profile: Outpatient Medication Profile: * Outpatient Medication Status not yet specified Physical Exam: Constitutional: Well developed, awake/alert/oriented x3, no distress, alert and cooperative Eyes: PERRL, EOMI, clear sclera ENMT: mucous membranes moist, no apparent injury, no lesions seen Gastrointestinal: Nondistended, soft, non-tender, no rebound tenderness or guarding, no masses palpable, no organomegaly, +BS, no bruits Genitourinary: Normal external genitalia without lesions, normal vaginal mucosa, no masses on bimanual exam, no induration, parametria unremarkable Musculoskeletal: ROM intact, no joint swelling, normal strength Extremities: Normal extremities, no edema, no clubbing Neurological: Alert and oriented x3, grossly intact senses, motor, strength Social History: Smoking: Smoking Statusnever smoker Results: Lab Results: Lab Results: Results: LDH date/time 11-Dec-2020 08:13 N/A I have reviewed these laboratory results: Culture, Urine 08-Sep-2022 13:30:00 ResultValue Culture, Urine NO SIGNIFICANT GROWTH. Cancer Antigen, 125 08-Sep-2022 11:38:00 ResultValue Cancer Antigen, 125 11.6 Assessment and Plan: Assessment: 37 yo who with chronic pelvic pain followed by [facility] now s/p 2 surgeries. In 2014, incidental finding of benign serous ovarian inclusions wtih the presence of psammomma bodies within the inclusions and also the fallopian tube. In 2021 unremarkable ovarian cystectomy pathology but peritoneal biopsy demonstrates low grade serous epithelial proliferation. Serous phenotype confirmed at [facility] Tumor Board Review. Dx: Low grade serous epithelial proliferation. Not meeting diagnostic criteria for low grade serous carcinoma. CT february 2022 unremarkable. CA125 150s prior to surgery and normal post surgery. Mother with history of breast cancer. No other relevant family history. 07/2014 LSO for pain, adnexal mass, elevated CA125 elevated ~ 150s assumed to be secondary to endometriosis. Final pathology: Sclerotic ovary with benign serous inclusions with psammoma bodies, negative for neoplasm. L fallopian tube intraluminal psammoma bodies. Continued pelvic pain. Plan: We discussed many things, including perceived risks for cancer going forward. Low grade serous epithelial proliferation: I agree with Dr. Colin's assessment and care plan: Elevated risk for possible peritoneal based low grade serous carcinoma is again acknowledged. CA125 may be a tumor marker and serial CA125 can be undertaken for surveillance in this higher risk setting. CA125 repeated today and was 11. Requests baseline CT due to pain. Management of remaining ovary: Recent cystectomy pathology was unremarkable. If this was low grade serous carcinoma, we wo (more content not included)... Normal [facility] 36on 08-12-2022 36 Left voicemail for patient to call office if she would still like to schedule surgery. Rafal vs lap RO omentectomy Normal [facility] Clostridium difficile detect ion by polymerase chain reactionOrdered By: Dr. Branch on 07-30-2022 C. difficile DNA EL+probe Ql (Unsp spec) [facility] EP PanelOrdered By: Dr. Christopher zavala on 07-30-2022 Gastrointestinal pathogens panel EL+probe (Stl) [facility] Ova and parasitesOrdered By: Rudy Branch on 07-30-2022 Ova and parasites identified LM Nom (Unsp spec) [facility] Stool lactoferrin detection by immunoassayOrdered By: Dr. Branch on 07-30-2022 Lactoferrin IA Ql (Stl) [facility] US KIDNEY/BLADDERon 07-31-19 23 [facility] Absolute lymphocyte countOrd ered By: Dr. Branch on 07-29-2022 Lymphocytes Auto (Unsp spec) [#/Vol] 2.99 10*3/uL 0.83-4.51 [facility] Basophil percentageOrdered B y: Dr. Branch on 07-29-2022 Basophils/100 WBC (Bld) 0.4 % 0-1 [facility] Bilirubin [Mass/Vol] 0.20 mg/dL 0.20-1.00 [facility] Comment on above: For patients on eltr ombopag therapy, use of Dimension [employer] TBIL is not recommended. Chloride [Moles/Vol] 106 mmol/L 98-107 [facility] Cholesterol [Mass/Vol] 192 mg/dL <200 [facility] Comment on above: <200 mg/dL Desirable 200-240 mg/dL Borderline >240 mg/dL High Risk Eosinophils/100 WBC (Bld) 1.6 % 0-5 [facility] Glucose [Mass/Vol] 86 mg/dL 74-106 [facility] Neutrophils (Bld) [#/Vol] 5.9 10*3/uL 2.0-7.7 [facility] Neutrophils/100 WBC (Bld) 61.6 % 47-70 [facility] Potassium [Moles/Vol] 3.5 mmol/L 3.5-5.1 [facility] Protein [Mass/Vol] 8.0 g/dL 6.4-8.2 [facility] Sodium [Moles/Vol] 139 mmol/L 136-145 [facility] Testosterone [Mass/Vol] 21.09 ng/dL [facility] Comment on above: CENTRAL 90% REFERENC E RANGES MALE AGE <50 197.44 - 669.58 ng/dL MALE AGE > or = 50 187.72 - 684.19 ng/dL FEMALE AGE <50 8.38 - 35.01 ng/dL FEMALE AGE > or = 50 <7.00 - 35.92 ng/dL Effective as of 10/22/20 Triglyceride [Mass/Vol] 442 mg/dL <199 [facility] Comment on above: The drugs N-Acetylcy steine and Metamizole may falsely depress this assay. TRIGLYCERIDE IS GREATER THAN 400 mg/dL. LDL RESULT IS INVALID AND WILL NOT BE REPORTED.Serum Triglycerides Reference Interval Normal <150 mg/dL Borderline high 150 - 199 mg/dL High 200 - 499 mg/dL Very High > or = 500 mg/dL WBC (Bld) [#/Vol] 9.6 10*3/uL 4.4-11.0 [facility] Bilirubin Test strip Ql (U)O rdered By: Dr. Branch on 07-29-2022 Bilirubin Ql (U) Negative Negative [facility] Blood erythrocytes count (nu mber/volume)Ordered By: Dr. Branch on 07-29-2022 RBC (Bld) [#/Vol] 4.72 10*6/uL 4.2-5.4 [facility] Blood hemoglobin measurement (mass/volume)Ordered By: Dr. Branch on 07-29-2022 Hemoglobin (Bld) [Mass/Vol] 12.9 g/dL 12.0-15.0 [facility] Blood lymphocytes/100 leukoc ytesOrdered By: Dr. Branch on 07-29-2022 Lymphocytes/100 WBC (Bld) 31.1 % 19-41 [facility] Blood monocytes/100 leukocyt esOrdered By: Dr. Branch on 07-29-2022 Monocytes/100 WBC (Bld) 4.9 % 0-10 [facility] Blood platelet mean volumeOr dered By: Dr. Branch on 07-29-2022 Platelet mean volume (Bld) [Entitic vol] 9.1 fL 6.2-12.0 [facility] Determination of erythrocyte mean corpuscular volume (MCV)Ordered By: Dr. Branch on 07-29-2022 MCV (RBC) [Entitic vol] 85.6 fL 81-99 [facility] Hematocrit Auto (Bld) [Volum e fraction]Ordered By: Dr. Branch on 07-29-2022 Hematocrit (Bld) [Volume fraction] 40.4 % 37-47 [facility] Ketones Test strip Ql (U)Ord ered By: Dr. Branch on 07-29-2022 Ketones Ql (U) Negative Negative [facility] Laboratory - Chemistry and C hemistry - challengeOrdered By: Dr. Branch on 07-29-2022 ALP [Catalytic activity/Vol] 78 U/L 45-117 [facility] ALT [Catalytic activity/Vol] 29 U/L 13-56 [facility] CO2 [Moles/Vol] 26.0 mmol/L 21.0-32.0 [facility] Globulin (S) [Mass/Vol] 4.4 g/dL 2.2-4.2 [facility] Urea nitrogen/Creatinine [Mass ratio] 17.8 mg/mg 10-20 [facility] Laboratory - Hematology and Cell countsOrdered By: Dr. Branch on 07-29-2022 Erythrocyte distribution width (RBC) [Entitic vol] 42.1 fL 35.1-43.9 [facility] Erythrocyte distribution width (RBC) [Ratio] 13.4 % 11.6-14.6 [facility] Immature granulocytes/100 WBC (Bld) 0.400 % 0.0-0.9 [facility] Comment on above: IG% - Immature Granu locytes (promyelocytes, myelocytes and metamyelocytes) > 1% indicates that a LEFT SHIFT is Present. MCH (RBC) [Entitic mass] 27.3 pg 27.0-32.0 [facility] Nucleated RBC/100 WBC (Bld) [Ratio] 0 % 0-5 [facility] MCHC Auto (RBC) [Mass/Vol]Or dered By: Dr. Branch on 07-29-2022 MCHC (RBC) [Mass/Vol] 31.9 g/dL 32-36 [facility] Nitrite Test strip Ql (U)Ord ered By: Dr. Branch on 07-29-2022 Nitrite Ql (U) Negative Negative [facility] No Panel InformationOrdered By: Dr. Branch on 07-29-2022 Dehydroepiandrosterone Sulfate 173.0 ug/dL 57.3-279.2 [facility] Comment on above: Performed at: [address] [id number] Director: El Case PhD, Phone: [phone] Estimated GFR (MDRD) Amer 114 mL/min >60 [facility] Comment on above: GFR Calc Estimated GFR (MDRD) Non-Af Amer 94 mL/min >60 [facility] Comment on above: Non- GFR Calc Follicle Stimulating Hormone 1.3 mIU/mL [facility] Comment on above: NORMAL REFERENCE RAN GES FEMALE FOLLICULAR 2.3 - 12.6 mIU/mL MID-CYCLE PEAK 5.2 - 17.5 mIU/mL LUTEAL 1.7 - 12.9 mIU/mL POST-MENOPAUSAL ON MHT 5.9 - 72.8 mIU/mL NOT ON MHT 12.7 - 132.2 mlU/mL MALE 0.7 - 10.8 mIU/mL Insulin Level 131.4 mU/L 2.6-37.6 [facility] Luteinizing Hormone 0.5 mIU/mL [facility] Comment on above: NORMAL REFERENCE RAN GES FEMALE FOLLICULAR 1.9 - 26.2 mIU/mL MID-CYCLE PEAK 22.8 - 76.1 mIU/mL LUTEAL 0.6 - 16.6 mIU/mL POST-MENOPAUSAL ON MHT 1.1 - 52.4 mIU/mL NOT ON MHT 8.6 - 61.8 mIU/mL MALE 1.2 - 10.6 mIU/mL Thyroid Stimulating Hormone (TSH) 0.48 uIU/mL 0.358-3.74 [facility] Vitamin D 25-Hydroxy 37.5 ng/mL [facility] Comment on above: Vitamin D 25(OH) Sta tus Range Deficiency <20 ng/mL (50nmol/L) Insufficiency 20 - 30 ng/mL (50 - 75 nmol/L) Sufficiency 30 - 100 ng/mL (75 - 250 nmol/L) Toxicity >100 ng/mL (>250 nmol/L) Platelets bldOrdered By: Dr. Branch on 07-29-2022 Platelets (Bld) [#/Vol] 319 10*3/uL 150-450 [facility] Protein Test strip Ql (U)Ord ered By: Dr. Branch on 07-29-2022 Protein Ql (U) 15 mg/dl Negative [facility] Serum or plasma albumin kaylan urement (mass/volume)Ordered By: Dr. Branch on 07-29-2022 Albumin [Mass/Vol] 3.6 g/dL 3.2-5.0 [facility] Serum or plasma albumin/glob ulin mass ratioOrdered By: Dr. Branch on 07-29-2022 Albumin/Globulin [Mass ratio] 0.8 {ratio} 0.9-2.4 [facility] Serum or plasma calcium kaylan urement (mass/volume)Ordered By: Dr. Branch on 07-29-2022 Calcium [Mass/Vol] 9.5 mg/dL 8.5-10.1 [facility] Serum or plasma cholesterol in HDL measurement (mass/volume)Ordered By: Dr. Branch on 07-29-2022 Cholesterol in HDL [Mass/Vol] 35 mg/dL >40 [facility] Comment on above: The drugs N-Acetylcy steine and Metamizole may falsely depress this assay. Reference Range HDL <40 mg/dL Low HDL Cholesterol HDL >or= 60 mg/dL High HDL Cholesterol Serum or plasma cholesterol in VLDL measurement (mass/volume)Ordered By: Dr. Branch on 07-29-2022 Cholesterol in VLDL [Mass/Vol] TNP [facility] Comment on above: Test not performed Serum or plasma cortisol sheila surement (mass/volume)Ordered By: Dr. Branch on 07-29-2022 Cortisol [Mass/Vol] 6.60 ug/dL 3.44-22.45 [facility] Comment on above: Adult (AM) 5.27 - 22 .45 ug/dL Adult (PM) 3.44 - 16.76 ug/dLPlease note revised CORTISOL reference range effective 2019. Serum or plasma creatinine m easurement (mass/volume)Ordered By: Dr. Branch on 07-29-2022 Creatinine [Mass/Vol] 0.73 mg/dL 0.55-1.02 [facility] Comment on above: The validity of the calculated GFR & GFRAA in patients over 70 years has not been determined. Clinical correlation is essential. Serum or plasma low density lipoprotein (LDL) cholesterol measurement (mass/volume)Ordered By: Dr. Branch on 07-29-2022 Cholesterol in LDL [Mass/Vol] TNP [facility] Comment on above: Test not performed Serum or plasma urea nitroge n measurement (mass/volume)Ordered By: Dr. Branch on 07-29-2022 Urea nitrogen [Mass/Vol] 13 mg/dL 7-18 [facility] Thin prep Papanicolaou smear with manual screeningOrdered By: Dr. Branch on 07-29-2022 Thin prep Papanicolaou smear with manual screening 22 U/L 15-37 [facility] Thin prep Papanicolaou smear with manual screening 7 5-15 [facility] Urine blood detectionOrdered By: Dr. Branch on 07-29-2022 RBC Ql (U) 10 /ul Negative [facility] Urine clarityOrdered By: Dr. Branch on 07-29-2022 Clarity (U) Sl. Cloudy Clear [facility] Urine color determinationOrd ered By: Dr. Branch on 07-29-2022 Color (U) Yellow Yellow [facility] Urine glucose detectionOrder ed By: Dr. Branch on 07-29-2022 Glucose Ql (U) Normal mg/dl Normal [facility] Urine leukocyte esterase det ection by dipstickOrdered By: Dr. Branch on 07-29-2022 Leukocyte esterase Test strip Ql (U) 25 /ul Negative [facility] Urine pHOrdered By: Dr. Christopher zavala on 07-29-2022 pH (U) 6.0 [pH] 5.0 - 8.0 [facility] Urine specific gravity measu rementOrdered By: Dr. Branch on 07-29-2022 Specific gravity (U) [Rel density] 1.020 1.002-1.030 [facility] Urobilinogen Auto test strip Ql (U)Ordered By: Dr. Branch on 07-29-2022 Urobilinogen Ql (U) Normal mg/dl Normal [facility] Absolute lymphocyte countOrd ered By: Dr. Branch on 05-29-2022 Lymphocytes Auto (Unsp spec) [#/Vol] 2.14 10*3/uL 0.83-4.51 [facility] Basophil percentageOrdered B y: Dr. Branch on 05-29-2022 Basophil percentage Not Reportable [facility] Basophils/100 WBC (Bld) 0.5 % 0-1 [facility] Eosinophils/100 WBC (Bld) 1.8 % 0-5 [facility] Neutrophils (Bld) [#/Vol] 4.9 10*3/uL 2.0-7.7 [facility] Neutrophils/100 WBC (Bld) 64.5 % 47-70 [facility] WBC (Bld) [#/Vol] 7.6 10*3/uL 4.4-11.0 [facility] Blood erythrocytes count (nu mber/volume)Ordered By: Dr. Branch on 05-29-2022 RBC (Bld) [#/Vol] 4.84 10*6/uL 4.2-5.4 [facility] Blood hemoglobin measurement (mass/volume)Ordered By: Dr. Branch on 05-29-2022 Hemoglobin (Bld) [Mass/Vol] 12.8 g/dL 12.0-15.0 [facility] Blood lymphocytes/100 leukoc ytesOrdered By: Dr. Branch on 05-29-2022 Lymphocytes/100 WBC (Bld) 28.2 % 19-41 [facility] Blood monocytes/100 leukocyt esOrdered By: Dr. Branch on 05-29-2022 Monocytes/100 WBC (Bld) 4.7 % 0-10 [facility] Blood platelet mean volumeOr dered By: Dr. Branch on 05-29-2022 Platelet mean volume (Bld) [Entitic vol] 9.4 fL 6.2-12.0 [facility] Determination of erythrocyte mean corpuscular volume (MCV)Ordered By: Dr. Branch on 05-29-2022 MCV (RBC) [Entitic vol] 84.7 fL 81-99 [facility] Erythrocyte sedimentation ra teOrdered By: Dr. Branch on 05-29-2022 ESR (Bld) [Velocity] 26 mm/h 0-30 [facility] Hematocrit Auto (Bld) [Volum e fraction]Ordered By: Dr. Branch on 05-29-2022 Hematocrit (Bld) [Volume fraction] 41.0 % 37-47 [facility] Laboratory - Chemistry and C hemistry - challengeOrdered By: Dr. Branch on 05-29-2022 CK [Catalytic activity/Vol] 38 U/L 26-192 [facility] Laboratory - Hematology and Cell countsOrdered By: Dr. Branch on 05-29-2022 Erythrocyte distribution width (RBC) [Entitic vol] 42.5 fL 35.1-43.9 [facility] Erythrocyte distribution width (RBC) [Ratio] 13.6 % 11.6-14.6 [facility] Immature granulocytes/100 WBC (Bld) 0.300 % 0.0-0.9 [facility] Comment on above: IG% - Immature Granu locytes (promyelocytes, myelocytes and metamyelocytes) > 1% indicates that a LEFT SHIFT is Present. MCH (RBC) [Entitic mass] 26.4 pg 27.0-32.0 [facility] Nucleated RBC/100 WBC (Bld) [Ratio] 0 % 0-5 [facility] MCHC Auto (RBC) [Mass/Vol]Or dered By: Dr. Branch on 05-29-2022 MCHC (RBC) [Mass/Vol] 31.2 g/dL 32-36 [facility] No Panel InformationOrdered By: Dr. Branch on 05-29-2022 Anti-Nuclear Antibody Screen Negative Negative [facility] Comment on above: Performed at: [address] [id number] Director: El Case PhD, Phone: [phone] [place] 125 Antigen 11.8 U/mL 0.0-38.1 [facility] Comment on above: [facility] El ectrochemiluminescence Immunoassay(ECLIA)Values obtained with different assay methods or kits cannotbe used interchangeably. Results cannot be interpreted asabsolute evidence of the presence or absence of malignantdisease.Performed at: [facility], [place] [id number] Director: El Case PhD, Phone: [phone] Centromere B Antibody Not Reportable [facility] Hepatitis A IgM Antibody Negative Negative [facility] Hepatitis B Core IgM Antibody Negative Negative [facility] Hepatitis C Antibody (EIA) Non-Reactive Non Reactive [facility] Hepatitis C Antibody Comment Comment . [facility] Comment on above: Not infected with HC V unless early or acute infection issuspected (which may be delayed in an immunocompromisedindividual), or other evidence exists to indicate HCVinfection. 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 For more information see Policy Stat Procedure [employer] High Sensitivity Troponin (TNIH) and attachments. Platelets bldOrdered By: Dr. Branch on 05-29-2022 Platelets (Bld) [#/Vol] 297 10*3/uL 150-450 [facility] Serum DNA double strand anti body assay (units/volume)Ordered By: Dr. Branch on 05-29-2022 DNA double strand Ab Qn (S) Not Reportable [facility] Serum Analisa-1 antibody assay (u nits/volume)Ordered By: Dr. Branch on 05-29-2022 Analisa-1 extractable nuclear Ab Qn (S) Not Reportable [facility] Serum Scl-70 extractable nuc lear antibody assay (units/volume)Ordered By: Dr. Branch on 05-29-2022 SCL-70 extractable nuclear Ab Qn (S) Not Reportable [facility] Serum Blank extractable nucl ear antibody detectionOrdered By: Dr. Branch on 05-29-2022 Blank extractable nuclear Ab Ql (S) Not Reportable [facility] Serum or plasma C reactive p rotein measurement (mass/volume)Ordered By: Dr. Branch on 05-29-2022 CRP [Mass/Vol] 15.40 mg/L 0.0-3.0 [facility] Comment on above: C-Reactive Protein ( CRP) provides useful information for thediagnosis, therapy and monitoring of inflammatory processesand associated diseases. For the evaluation of Relative Riskfor Cardiovascular Disease, a High Sensitivity CRP (HSCRP)should be ordered. Serum or plasma hepatitis B virus surface antigen detection by immunoassayOrdered By: Dr. Branch on 05-29-2022 HBV surface Ag IA Ql Negative Negative [facility] 36on 05-06-2022 [address] scan. Recommned RO 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 [facility] Progress Noteon 05-04-2022 Progress Note CC: Abnormal uterine bleeding endometriosis pelvic adhesive disease severe pelvic pain HPI: Kaya Arce is a pleasant 36 y.o. female who presents in consultation from Dr. Meehan for further evaluation and management of pelvic pain, abnormal uterine bleeding and endometriosis. She initially presented with intermittent pelvic pain which happens most days. She states the pain significantly interferes with her quality of life. The pain is mostly in her pelvis, does not radiate. Is not associated with changes in bowel or bladder habits. She does have a history of Crohn's disease diagnosed on colonoscopy has occasional diarrhea but has never had any bowel surgery from her Crohn's disease. She has had no change in her symptoms on progesterone. She has tried other hormonal therapy but due to her postural hypotension is unable to tolerate it. Nonsteroidal anti-inflammatory agents provide mild relief. She has a persistent 3 cm mildly complex ovarian cyst. She does have a history of endometriosis and scar tissue seen on previous laparoscopic oophorectomy. She has also had some intermittently heavy vaginal bleeding Was scheduled for hysterectomy in the [facility] but that got canceled due to the physician leaving. States that her last couple Paps have been negative but it is difficult to do Pap smears due to the anteversion of her uterus per the patient First 3 days of menses are so sever that she will bleed heavy, feels weak. She states the blood will come out making her change her pad and tampon every hour for about 3 days[address] Review of a CT scan report from January 2019 shows no evidence of pelvic pathology. CT scan June 2020 report has been reviewed. Left ovary appears to be missing. Indication Abnormal uterine bleeding Impression Normal appearing [...] free fluid visualized in the peritoneal cavity. Hx of LSO several years ago. One year ago had lap casey and pelvic PEDRO. Was told after that surgery that she would require hysterectomy and RSO due to the severe pelvic disease. Her surgery did help for a month or 2 but has been progressively getting worse over the last 10 months. She is here today to discuss hysterectomy with RSO. She denies any history of DVT SD or pulmonary embolism Had colonoscopy about a year ago, was normal. Interval history; Conintued abd pain. The patient states that her pain is persistent, she is requesting hysterectomy with RSO as a definitive cure for her pain. She is here today to discuss surgery. Patient was seen at the [facility]. An MRI was performed. MRI 07/2021 IMPRESSION: Findings of infiltrative endometriosis involving the [...] fibrothecoma. No endometrioma. Adenomyosis. Right sided hydrosalpinx. Had recent USD and USD [place] [employer]. These reports have personally been reviewed and does show a persistent right adnexal mass from 3 to 5 cm in size. No adenopathy or ascites is seen. Regular menses about every 40 days Patient was scheduled for hysterectomy with RSO but canceled the surgery in November. Updated history; Patient underwent laparoscopic hysterectomy with right ovarian cystectomy.Feb 10 The pathology report reveals: A. Peritoneum, bowel lesion, biopsy - Clusters of low-grade serous epithelial cells (see comment) B. Fallopian tube, right, salpingectomy - Fimbriated fallopian tube with no significant abnormality C. Uterus and cervix, total laparoscopic hysterectomy - Cervix: No significant abnormality - Endometrium: Proliferative endometrium - Myometrium: Leiomyoma, 1 cm - Serosa: Serosal adhesions D. Ovary, right, cystectomy - Follicular cyst Patient underwent CT scan of the abdomen pelvis in February 2022. Pelvis: Prominent RIGHT ovary measuring 3.9 x 3.3 x 2.8 cm with a 1.7 cm corpus luteum cyst. There is apparent loss of the fat plane between the ovary and the sigmoid colon, which is nonspecific given the history of surgery. There is no direct invasion. Hysterectomy and LEFT oophorectomy. No ascites, mass, or fluid collection. Unremarkable urinary bladder. CT sca (more content not included)... Normal [facility] Absolute lymphocyte countOrd ered By: Dr. Lou on 04-25-2022 Lymphocytes Auto (Unsp spec) [#/Vol] 2.96 10*3/uL 0.83-4.51 [facility] Basophil percentageOrdered B y: Dr. Lou on 04-25-2022 Basophil percentage 0 SEEN /hpf 0-5 [facility] Basophils/100 WBC (Bld) 0.2 % 0-1 [facility] Bilirubin [Mass/Vol] 0.30 mg/dL 0.20-1.00 [facility] Comment on above: For patients on eltr ombopag therapy, use of Dimension [employer] [place] TBIL is not recommended. Chloride [Moles/Vol] 103 mmol/L 98-107 [facility] Eosinophils/100 WBC (Bld) 1.4 % 0-5 [facility] Glucose [Mass/Vol] 136 mg/dL 74-106 [facility] Comment on above: Fasting Glucose resu lt greater than or equal to 126 mg/dL suggests DIABETES MELLITUS per A.D.A. criteria. Neutrophils (Bld) [#/Vol] 9.4 10*3/uL 2.0-7.7 [facility] Neutrophils/100 WBC (Bld) 70.8 % 47-70 [facility] Potassium [Moles/Vol] 3.5 mmol/L 3.5-5.1 [facility] Protein [Mass/Vol] 7.6 g/dL 6.4-8.2 [facility] Sodium [Moles/Vol] 141 mmol/L 136-145 [facility] WBC (Bld) [#/Vol] 13.2 10*3/uL 4.4-11.0 [facility] Bilirubin Test strip Ql (U)O rdered By: Dr. Lou on 04-25-2022 Bilirubin Ql (U) Negative Negative [facility] Blood erythrocytes count (nu mber/volume)Ordered By: Dr. Lou on 04-25-2022 RBC (Bld) [#/Vol] 4.83 10*6/uL 4.2-5.4 [facility] Blood hemoglobin measurement (mass/volume)Ordered By: Dr. Lou on 04-25-2022 Hemoglobin (Bld) [Mass/Vol] 12.8 g/dL 12.0-15.0 [facility] Blood lymphocytes/100 leukoc ytesOrdered By: Dr. Lou on 04-25-2022 Lymphocytes/100 WBC (Bld) 22.4 % 19-41 [facility] Blood monocytes/100 leukocyt esOrdered By: Dr. Lou on 04-25-2022 Monocytes/100 WBC (Bld) 4.8 % 0-10 [facility] Blood platelet mean volumeOr dered By: Dr. Lou on 04-25-2022 Platelet mean volume (Bld) [Entitic vol] 9.1 fL 6.2-12.0 [facility] Determination of erythrocyte mean corpuscular volume (MCV)Ordered By: Dr. Lou on 04-25-2022 MCV (RBC) [Entitic vol] 84.7 fL 81-99 [facility] Hematocrit Auto (Bld) [Volum e fraction]Ordered By: Dr. Lou on 04-25-2022 Hematocrit (Bld) [Volume fraction] 40.9 % 37-47 [facility] Ketones Test strip Ql (U)Ord ered By: Dr. Lou on 04-25-2022 Ketones Ql (U) Negative Negative [facility] Laboratory - Chemistry and C hemistry - challengeOrdered By: Dr. Lou on 04-25-2022 ALP [Catalytic activity/Vol] 78 U/L 45-117 [facility] ALT [Catalytic activity/Vol] 19 U/L 13-56 [facility] CO2 [Moles/Vol] 30.0 mmol/L 21.0-32.0 [facility] Globulin (S) [Mass/Vol] 4.1 g/dL 2.2-4.2 [facility] Urea nitrogen/Creatinine [Mass ratio] 15.1 mg/mg 10-20 [facility] Laboratory - Hematology and Cell countsOrdered By: Dr. Lou on 04-25-2022 Erythrocyte distribution width (RBC) [Entitic vol] 41.1 fL 35.1-43.9 [facility] Erythrocyte distribution width (RBC) [Ratio] 13.3 % 11.6-14.6 [facility] Immature granulocytes/100 WBC (Bld) 0.400 % 0.0-0.9 [facility] Comment on above: IG% - Immature Granu locytes (promyelocytes, myelocytes and metamyelocytes) > 1% indicates that a LEFT SHIFT is Present. MCH (RBC) [Entitic mass] 26.5 pg 27.0-32.0 [facility] Nucleated RBC/100 WBC (Bld) [Ratio] 0 % 0-5 [facility] Laboratory - Microbiology an d Antimicrobial susceptibilityOrdered By: Dr. Lou on 04-25-2022 Respiratory pathogens DNA and RNA 12b panel EL+probe (Unsp spec) [facility] MCHC Auto (RBC) [Mass/Vol]Or dered By: Dr. Lou on 04-25-2022 MCHC (RBC) [Mass/Vol] 31.3 g/dL 32-36 [facility] Mucus LM Ql (Urine sed)Order ed By: Dr. Lou on 04-25-2022 Mucus Ql (Urine sed) 0 SEEN /hpf [facility] Nitrite Test strip Ql (U)Ord ered By: Dr. Lou on 04-25-2022 Nitrite Ql (U) Negative Negative [facility] No Panel InformationOrdered By: Dr. Lou on 04-25-2022 Estimated Creatinine Clearance Calc 79.87 ml/min [facility] Estimated GFR (MDRD) Amer 104 mL/min >60 [facility] Comment on above: GFR Calc Estimated GFR (MDRD) Non-Af Amer 86 mL/min >60 [facility] Comment on above: Non- GFR Calc Platelets bldOrdered By: Dr. Lou on 04-25-2022 Platelets (Bld) [#/Vol] 313 10*3/uL 150-450 [facility] Protein Test strip Ql (U)Ord ered By: Dr. Lou on 04-25-2022 Protein Ql (U) Negative Negative [facility] Serum heterophile antibody d etectionOrdered By: Dr. Lou on 04-25-2022 Heterophile Ab Ql (S) Negative Negative [facility] Serum or plasma albumin [place] urement (mass/volume)Ordered By: Dr. Lou on 04-25-2022 Albumin [Mass/Vol] 3.5 g/dL 3.2-5.0 [facility] Serum or plasma albumin/glob ulin mass ratioOrdered By: Dr. Lou on 04-25-2022 Albumin/Globulin [Mass ratio] 0.9 {ratio} 0.9-2.4 [facility] Serum or plasma calcium kaylan urement (mass/volume)Ordered By: Dr. Lou on 04-25-2022 Calcium [Mass/Vol] 9.2 mg/dL 8.5-10.1 [facility] Serum or plasma creatinine m easurement (mass/volume)Ordered By: Dr. Lou on 04-25-2022 Creatinine [Mass/Vol] 0.79 mg/dL 0.55-1.02 [facility] Comment on above: The validity of the calculated GFR & GFRAA in patients over 70 years has not been determined. Clinical correlation is essential. Serum or plasma urea nitroge n measurement (mass/volume)Ordered By: Dr. Lou on 04-25-2022 Urea nitrogen [Mass/Vol] 12 mg/dL 7-18 [facility] Squamous epithelial cells de tection in urine sediment by light microscopyOrdered By: Dr. Lou on 04-25-2022 Epithelial cells.squamous LM Ql (Urine sed) 25-50 SEEN /hpf 5-10 [facility] Thin prep Papanicolaou smear with manual screeningOrdered By: Dr. Lou on 04-25-2022 Thin prep Papanicolaou smear with manual screening 13 U/L 15-37 [facility] Thin prep Papanicolaou smear with manual screening 8 5-15 [facility] Urine blood detectionOrdered By: Dr. Lou on 04-25-2022 RBC Ql (U) 10 /ul Negative [facility] RBC Ql (U) 0 SEEN /hpf 0-5 [facility] Urine clarityOrdered By: Dr. Lou on 04-25-2022 Clarity (U) Clear Clear [facility] Urine color determinationOrd ered By: Dr. Lou on 04-25-2022 Color (U) Yellow Yellow [facility] Urine glucose detectionOrder ed By: Dr. Lou on 04-25-2022 Glucose Ql (U) Normal mg/dl Normal [facility] Urine leukocyte esterase det ection by dipstickOrdered By: Dr. Lou on 04-25-2022 Leukocyte esterase Test strip Ql (U) Negative Negative [facility] Urine pHOrdered By: Dr. Kj oconnor on 04-25-2022 pH (U) 7.0 [pH] 5.0 - 8.0 [facility] Urine sediment bacteria coun t by microscopy (number/high power field)Ordered By: Dr. Lou on 04-25-2022 Bacteria LM.HPF (Urine sed) [#/Area] 0 /[HPF] None Seen [facility] Urine specific gravity measu rementOrdered By: Dr. Lou on 04-25-2022 Specific gravity (U) [Rel density] 1.015 1.002-1.030 [facility] Urobilinogen Auto test strip Ql (U)Ordered By: Dr. Lou on 04-25-2022 Urobilinogen Ql (U) Normal mg/dl Normal [facility] Laboratory - Microbiology an d Antimicrobial susceptibilityOrdered By: Dr. Branch on 04-22-2022 Bacteria identified Cx Nom (Bld) No growth in 5 days. [facility] Culture, urineOrdered By: Dr Alessandra Branch on 04-19-2022 Bacteria identified Cx Nom (U) Culture exhibits no growth. [facility] Absolute lymphocyte countOrd ered By: Dr. Branch on 04-17-2022 Lymphocytes Auto (Unsp spec) [#/Vol] 2.16 10*3/uL 0.83-4.51 [facility] Basophil percentageOrdered B y: Dr. Branch on 04-17-2022 Basophils/100 WBC (Bld) 0.5 % 0-1 [facility] Bilirubin [Mass/Vol] 0.30 mg/dL 0.20-1.00 [facility] Comment on above: For patients on eltr ombopag therapy, use of Dimension [employer] TBIL is not recommended. Chloride [Moles/Vol] 104 mmol/L 98-107 [facility] Eosinophils/100 WBC (Bld) 2.2 % 0-5 [facility] Glucose [Mass/Vol] 95 mg/dL 74-106 [facility] Neutrophils (Bld) [#/Vol] 5.3 10*3/uL 2.0-7.7 [facility] Neutrophils/100 WBC (Bld) 65.6 % 47-70 [facility] Potassium [Moles/Vol] 3.7 mmol/L 3.5-5.1 [facility] Protein [Mass/Vol] 8.8 g/dL 6.4-8.2 [facility] Sodium [Moles/Vol] 140 mmol/L 136-145 [facility] WBC (Bld) [#/Vol] 8.1 10*3/uL 4.4-11.0 [facility] Bilirubin Test strip Ql (U)O rdered By: Dr. Branch on 04-17-2022 Bilirubin Ql (U) Negative Negative [facility] Blood erythrocytes count (nu mber/volume)Ordered By: Dr. Branch on 04-17-2022 RBC (Bld) [#/Vol] 4.88 10*6/uL 4.2-5.4 [facility] Blood hemoglobin measurement (mass/volume)Ordered By: Dr. Branch on 04-17-2022 Hemoglobin (Bld) [Mass/Vol] 13.4 g/dL 12.0-15.0 [facility] Blood lymphocytes/100 leukoc ytesOrdered By: Dr. Branch on 04-17-2022 Lymphocytes/100 WBC (Bld) 26.7 % 19-41 [facility] Blood monocytes/100 leukocyt esOrdered By: Dr. Branch on 04-17-2022 Monocytes/100 WBC (Bld) 4.5 % 0-10 [facility] Blood platelet mean volumeOr dered By: Dr. Branch on 04-17-2022 Platelet mean volume (Bld) [Entitic vol] 9.5 fL 6.2-12.0 [facility] Determination of erythrocyte mean corpuscular volume (MCV)Ordered By: Dr. Branch on 04-17-2022 MCV (RBC) [Entitic vol] 85.0 fL 81-99 [facility] Hematocrit Auto (Bld) [Volum e fraction]Ordered By: Dr. Branch on 04-17-2022 Hematocrit (Bld) [Volume fraction] 41.5 % 37-47 [facility] Ketones Test strip Ql (U)Ord ered By: Dr. Branch on 04-17-2022 Ketones Ql (U) Negative Negative [facility] Laboratory - Chemistry and C hemistry - challengeOrdered By: Dr. Branch on 04-17-2022 ALP [Catalytic activity/Vol] 94 U/L 45-117 [facility] ALT [Catalytic activity/Vol] 27 U/L 13-56 [facility] CO2 [Moles/Vol] 28.0 mmol/L 21.0-32.0 [facility] Globulin (S) [Mass/Vol] 4.8 g/dL 2.2-4.2 [facility] Urea nitrogen/Creatinine [Mass ratio] 11.4 mg/mg 10-20 [facility] Laboratory - Hematology and Cell countsOrdered By: Dr. Branch on 04-17-2022 Erythrocyte distribution width (RBC) [Entitic vol] 40.4 fL 35.1-43.9 [facility] Erythrocyte distribution width (RBC) [Ratio] 13.0 % 11.6-14.6 [facility] Immature granulocytes/100 WBC (Bld) 0.500 % 0.0-0.9 [facility] Comment on above: IG% - Immature Granu locytes (promyelocytes, myelocytes and metamyelocytes) > 1% indicates that a LEFT SHIFT is Present. MCH (RBC) [Entitic mass] 27.5 pg 27.0-32.0 [facility] Nucleated RBC/100 WBC (Bld) [Ratio] 0 % 0-5 [facility] Laboratory - Microbiology an d Antimicrobial susceptibilityOrdered By: Dr. Branch on 04-17-2022 SARS-CoV-2 (COVID-19) RNA EL+probe Ql (Unsp spec) Not detected Not Detect [facility] Comment on above: Normal Reference Ran ge: Not DetectedMethod:(RT-PCR) real-time reverse transcriptase PCRLuminex NAKUL Instrument*The Food and Drug Administration (FDA) has issued an Emergency Use Authorization (EAU) for the NAKUL SARS-CoV-2 Assay for the rapid detection of the virus that causes COVID-19. This test has been validated, but the FDAs independent review of this validation is pending.*Negative results do not preclude infection and should not be used as the sole basis for treatment or patient management. Optimum specimen types and timing for peak viral levels during infections caused by SARS-CoV-2 have not been determined. Collection of multiple specimens from the same patient may be necessary to detect the virus. The possibility of a false negative result should be considered if the patient has clinical presentation or has had recent exposure. MCHC Auto (RBC) [Mass/Vol]Or dered By: Dr. Branch on 04-17-2022 MCHC (RBC) [Mass/Vol] 32.3 g/dL 32-36 [facility] Nitrite Test strip Ql (U)Ord ered By: Dr. Branch on 04-17-2022 Nitrite Ql (U) Negative Negative [facility] No Panel InformationOrdered By: Dr. Branch on 04-17-2022 Estimated GFR (MDRD) Amer 120 mL/min >60 [facility] Comment on above: GFR Calc Estimated GFR (MDRD) Non-Af Amer 99 mL/min >60 [facility] Comment on above: Non- GFR Calc Platelets bldOrdered By: Dr. Branch on 04-17-2022 Platelets (Bld) [#/Vol] 344 10*3/uL 150-450 [facility] Protein Test strip Ql (U)Ord ered By: Dr. Branch on 04-17-2022 Protein Ql (U) Negative Negative [facility] Serum or plasma albumin [place] urement (mass/volume)Ordered By: Dr. Branch on 04-17-2022 Albumin [Mass/Vol] 4.0 g/dL 3.2-5.0 [facility] Serum or plasma albumin/glob ulin mass ratioOrdered By: Dr. Branch on 04-17-2022 Albumin/Globulin [Mass ratio] 0.8 {ratio} 0.9-2.4 [facility] Serum or plasma calcium kaylan urement (mass/volume)Ordered By: Dr. Branch on 04-17-2022 Calcium [Mass/Vol] 9.7 mg/dL 8.5-10.1 [facility] Serum or plasma creatinine m easurement (mass/volume)Ordered By: Dr. Branch on 04-17-2022 Creatinine [Mass/Vol] 0.70 mg/dL 0.55-1.02 [facility] Comment on above: The validity of the calculated GFR & GFRAA in patients over 70 years has not been determined. Clinical correlation is essential. Serum or plasma urea nitroge n measurement (mass/volume)Ordered By: Dr. Branch on 04-17-2022 Urea nitrogen [Mass/Vol] 8 mg/dL 7-18 [facility] Thin prep Papanicolaou smear with manual screeningOrdered By: Dr. Branch on 04-17-2022 Thin prep Papanicolaou smear with manual screening 18 U/L 15-37 [facility] Thin prep Papanicolaou smear with manual screening 8 5-15 [facility] Urine blood detectionOrdered By: Dr. Branch on 04-17-2022 RBC Ql (U) Negative Negative [facility] Urine clarityOrdered By: Dr. Branch on 04-17-2022 Clarity (U) Clear Clear [facility] Urine color determinationOrd ered By: Dr. Branch on 04-17-2022 Color (U) Straw Yellow [facility] Urine glucose detectionOrder ed By: Dr. Branch on 04-17-2022 Glucose Ql (U) Normal mg/dl Normal [facility] Urine leukocyte esterase det ection by dipstickOrdered By: Dr. Branch on 04-17-2022 Leukocyte esterase Test strip Ql (U) Negative Negative [facility] Urine pHOrdered By: Dr. Christopher zavala on 04-17-2022 pH (U) 6.5 [pH] 5.0 - 8.0 [facility] Urine specific gravity measu rementOrdered By: Dr. Branch on 04-17-2022 Specific gravity (U) [Rel density] 1.010 1.002-1.030 [facility] Urobilinogen Auto test strip Ql (U)Ordered By: Dr. Branch on 04-17-2022 Urobilinogen Ql (U) Normal mg/dl Normal [facility] No Panel Informationon 03-26 [facility] Absolute lymphocyte countOrd ered By: Dr. Andino on 03-06-2022 Lymphocytes Auto (Unsp spec) [#/Vol] 2.31 10*3/uL 0.83-4.51 [facility] Basophil percentageOrdered B y: Dr. Andino on 03-06-2022 Basophils/100 WBC (Bld) 0.4 % 0-1 [facility] Bilirubin [Mass/Vol] 0.20 mg/dL 0.20-1.00 [facility] Comment on above: For patients on eltr ombopag therapy, use of Dimension [employer] TBIL is not recommended. Chloride [Moles/Vol] 108 mmol/L 98-107 [facility] Eosinophils/100 WBC (Bld) 4.6 % 0-5 [facility] Glucose [Mass/Vol] 97 mg/dL 74-106 [facility] Neutrophils (Bld) [#/Vol] 4.5 10*3/uL 2.0-7.7 [facility] Neutrophils/100 WBC (Bld) 59.0 % 47-70 [facility] Potassium [Moles/Vol] 3.7 mmol/L 3.5-5.1 [facility] Protein [Mass/Vol] 7.9 g/dL 6.4-8.2 [facility] Sodium [Moles/Vol] 139 mmol/L 136-145 [facility] WBC (Bld) [#/Vol] 7.6 10*3/uL 4.4-11.0 [facility] Basophil percentage 0 SEEN /hpf 0-5 [facility] Bilirubin Test strip Ql (U)O rdered By: Dr. Andino on 03-06-2022 Bilirubin Ql (U) Negative Negative [facility] Blood erythrocytes count (nu mber/volume)Ordered By: Dr. Andino on 03-06-2022 RBC (Bld) [#/Vol] 4.54 10*6/uL 4.2-5.4 [facility] Blood hemoglobin measurement (mass/volume)Ordered By: Dr. Andino on 03-06-2022 Hemoglobin (Bld) [Mass/Vol] 12.3 g/dL 12.0-15.0 [facility] Blood lymphocytes/100 leukoc ytesOrdered By: Dr. Andino on 03-06-2022 Lymphocytes/100 WBC (Bld) 30.4 % 19-41 [facility] Blood monocytes/100 leukocyt esOrdered By: Dr. Andino on 03-06-2022 Monocytes/100 WBC (Bld) 5.3 % 0-10 [facility] Blood platelet mean volumeOr dered By: Dr. Andino on 03-06-2022 Platelet mean volume (Bld) [Entitic vol] 8.9 fL 6.2-12.0 [facility] Determination of erythrocyte mean corpuscular volume (MCV)Ordered By: Dr. Andino on 03-06-2022 MCV (RBC) [Entitic vol] 85.0 fL 81-99 [facility] Direct bilirubinOrdered By: Dr. Andino on 03-06-2022 Bilirubin.direct [Mass/Vol] 0.05 mg/dL 0.00-0.30 [facility] Hematocrit Auto (Bld) [Volum e fraction]Ordered By: Dr. Andino on 03-06-2022 Hematocrit (Bld) [Volume fraction] 38.6 % 37-47 [facility] Ketones Test strip Ql (U)Ord ered By: Dr. Andino on 03-06-2022 Ketones Ql (U) Negative Negative [facility] Laboratory - Chemistry and C hemistry - challengeOrdered By: Dr. Andino on 03-06-2022 ALP [Catalytic activity/Vol] 77 U/L 45-117 [facility] ALT [Catalytic activity/Vol] 25 U/L 13-56 [facility] CO2 [Moles/Vol] 25.0 mmol/L 21.0-32.0 [facility] Globulin (S) [Mass/Vol] 4.3 g/dL 2.2-4.2 [facility] Lipase [Catalytic activity/Vol] 268 U/L 73-393 [facility] Urea nitrogen/Creatinine [Mass ratio] 11.1 mg/mg 10-20 [facility] Laboratory - Hematology and Cell countsOrdered By: Dr. Andino on 03-06-2022 Erythrocyte distribution width (RBC) [Entitic vol] 41.7 fL 35.1-43.9 [facility] Erythrocyte distribution width (RBC) [Ratio] 13.3 % 11.6-14.6 [facility] Immature granulocytes/100 WBC (Bld) 0.300 % 0.0-0.9 [facility] Comment on above: IG% - Immature Granu locytes (promyelocytes, myelocytes and metamyelocytes) > 1% indicates that a LEFT SHIFT is Present. MCH (RBC) [Entitic mass] 27.1 pg 27.0-32.0 [facility] Nucleated RBC/100 WBC (Bld) [Ratio] 0 % 0-5 [facility] MCHC Auto (RBC) [Mass/Vol]Or dered By: Dr. Andino on 03-06-2022 MCHC (RBC) [Mass/Vol] 31.9 g/dL 32-36 [facility] Mucus LM Ql (Urine sed)Order ed By: Dr. Andino on 03-06-2022 Mucus Ql (Urine sed) 0 SEEN /hpf [facility] Nitrite Test strip Ql (U)Ord ered By: Dr. Andino on 03-06-2022 Nitrite Ql (U) Negative Negative [facility] No Panel InformationOrdered By: Dr. Andino on 03-06-2022 Estimated Creatinine Clearance Calc 77.90 ml/min [facility] Estimated GFR (MDRD) Amer 101 mL/min >60 [facility] Comment on above: GFR Calc Estimated GFR (MDRD) Non-Af Amer 84 mL/min >60 [facility] Comment on above: Non- GFR Calc Platelets bldOrdered By: Dr. Andino on 03-06-2022 Platelets (Bld) [#/Vol] 313 10*3/uL 150-450 [facility] Protein Test strip Ql (U)Ord ered By: Dr. Andino on 03-06-2022 Protein Ql (U) Negative Negative [facility] Serum or plasma albumin kay[place] urement (mass/volume)Ordered By: Dr. Andino on 03-06-2022 Albumin [Mass/Vol] 3.6 g/dL 3.2-5.0 [facility] Serum or plasma calcium kaylan urement (mass/volume)Ordered By: Dr. Andino on 03-06-2022 Calcium [Mass/Vol] 9.2 mg/dL 8.5-10.1 [facility] Serum or plasma creatinine m easurement (mass/volume)Ordered By: Dr. Andino on 03-06-2022 Creatinine [Mass/Vol] 0.81 mg/dL 0.55-1.02 [facility] Comment on above: The validity of the calculated GFR & GFRAA in patients over 70 years has not been determined. Clinical correlation is essential. Serum or plasma urea nitroge n measurement (mass/volume)Ordered By: Dr. Andino on 03-06-2022 Urea nitrogen [Mass/Vol] 9 mg/dL 7-18 [facility] Squamous epithelial cells de tection in urine sediment by light microscopyOrdered By: Dr. Andino on 03-06-2022 Epithelial cells.squamous LM Ql (Urine sed) 0-5 SEEN /hpf 5-10 [facility] Thin prep Papanicolaou smear with manual screeningOrdered By: Dr. Andino on 03-06-2022 Thin prep Papanicolaou smear with manual screening 17 U/L 15-37 [facility] Thin prep Papanicolaou smear with manual screening 6 5-15 [facility] Urine blood detectionOrdered By: Dr. Andino on 03-06-2022 RBC Ql (U) 10 /ul Negative [facility] RBC Ql (U) 0 SEEN /hpf 0-5 [facility] Urine clarityOrdered By: Dr. Andino on 03-06-2022 Clarity (U) Clear Clear [facility] Urine color determinationOrd ered By: Dr. Andino on 03-06-2022 Color (U) Yellow Yellow [facility] Urine glucose detectionOrder ed By: Dr. Andino on 03-06-2022 Glucose Ql (U) Normal mg/dl Normal [facility] Urine leukocyte esterase det ection by dipstickOrdered By: Dr. Andino on 03-06-2022 Leukocyte esterase Test strip Ql (U) Negative Negative [facility] Urine pHOrdered By: Dr. Savannah oconnor on 03-06-2022 pH (U) 6.0 [pH] 5.0 - 8.0 [facility] Urine sediment bacteria coun t by microscopy (number/high power field)Ordered By: Dr. Andino on 03-06-2022 Bacteria LM.HPF (Urine sed) [#/Area] 0 /[HPF] None Seen [facility] Urine specific gravity measu rementOrdered By: Dr. Andino on 03-06-2022 Specific gravity (U) [Rel density] 1.010 1.002-1.030 [facility] Urobilinogen Auto test strip Ql (U)Ordered By: Dr. Andino on 03-06-2022 Urobilinogen Ql (U) Normal mg/dl Normal [facility] Culture, urineOrdered By: Dr Alessandra Branch on 02-25-2022 Bacteria identified Cx Nom (U) Culture exhibits no growth. [facility] Absolute lymphocyte counton 12-03-2021 Lymphocytes Auto (Unsp spec) [#/Vol] 2.61 10*3/uL 0.83-4.51 [facility] Work Phone: Lymphocytes Auto (Unsp spec) [#/Vol] 2.50 10*3/uL 0.83-4.51 [facility] Work Phone: Basophil percentageon 12-03- 2021 Basophils/100 WBC (Bld) 0.4 % 0-1 [facility] Work Phone: Bilirubin [Mass/Vol] 0.30 mg/dL 0.20-1.00 [facility] Work Phone: Comment on above: For patients on eltr ombopag therapy, use of Dimension [employer] [place] TBIL is not recommended. Chloride [Moles/Vol] 107 mmol/L 98-107 [facility] Work Phone: Eosinophils/100 WBC (Bld) 1.8 % 0-5 [facility] Work Phone: Glucose [Mass/Vol] 118 mg/dL 74-106 [facility] Work Phone: Comment on above: Fasting Glucose resu lt from 100 to 125 mg/dL suggests IMPAIRED HOMEOSTASIS per A.D.A. criteria. Neutrophils (Bld) [#/Vol] 5.7 10*3/uL 2.0-7.7 [facility] Work Phone: Neutrophils/100 WBC (Bld) 62.8 % 47-70 [facility] Work Phone: Potassium [Moles/Vol] 3.6 mmol/L 3.5-5.1 [facility] Work Phone: Protein [Mass/Vol] 7.6 g/dL 6.4-8.2 [facility] Work Phone: Sodium [Moles/Vol] 141 mmol/L 136-145 [facility] Work Phone: WBC (Bld) [#/Vol] 9.0 10*3/uL 4.4-11.0 [facility] Work Phone: Basophil percentage 0-5 SEEN /hpf 0-5 [facility] Work Phone: Basophils/100 WBC (Bld) 0.5 % 0-1 [facility] Work Phone: Eosinophils/100 WBC (Bld) 2.0 % 0-5 [facility] Work Phone: Neutrophils (Bld) [#/Vol] 5.4 10*3/uL 2.0-7.7 [facility] Work Phone: Neutrophils/100 WBC (Bld) 63.3 % 47-70 [facility] Work Phone: Testosterone [Mass/Vol] 53 ng/dL 8-60 [facility] Work Phone: WBC (Bld) [#/Vol] 8.6 10*3/uL 4.4-11.0 [facility] Work Phone: Beta hCG serum qualon 2021 Beta HCG ( test) Ql Negative [facility] Work Phone: Bilirubin Test strip Ql (U)o n 12-03-2021 Bilirubin Ql (U) Negative Negative [facility] Work Phone: Bilirubin Ql (U) Negative Negative [facility] Work Phone: Blood erythrocytes count (nu mber/volume)on 12-03-2021 RBC (Bld) [#/Vol] 4.43 10*6/uL 4.2-5.4 [facility] Work Phone: RBC (Bld) [#/Vol] 4.58 10*6/uL 4.2-5.4 [facility] Work Phone: Blood hemoglobin measurement (mass/volume)on 12-03-2021 Hemoglobin (Bld) [Mass/Vol] 12.2 g/dL 12.0-15.0 [facility] Work Phone: Hemoglobin (Bld) [Mass/Vol] 12.3 g/dL 12.0-15.0 [facility] Work Phone: Blood lymphocytes/100 leukoc yteson 12-03-2021 Lymphocytes/100 WBC (Bld) 28.9 % 19-41 [facility] Work Phone: Lymphocytes/100 WBC (Bld) 29.2 % 19-41 [facility] Work Phone: Blood monocytes/100 leukocyt eson 12-03-2021 Monocytes/100 WBC (Bld) 5.8 % 0-10 [facility] Work Phone: Monocytes/100 WBC (Bld) 4.8 % 0-10 [facility] Work Phone: Blood platelet mean volumeon 12-03-2021 Platelet mean volume (Bld) [Entitic vol] 8.9 fL 6.2-12.0 [facility] Work Phone: Platelet mean volume (Bld) [Entitic vol] 9.3 fL 6.2-12.0 [facility] Work Phone: Determination of erythrocyte mean corpuscular volume (MCV)on 12-03-2021 MCV (RBC) [Entitic vol] 85.3 fL 81-99 [facility] Work Phone: MCV (RBC) [Entitic vol] 85.6 fL 81-99 [facility] Work Phone: Free testosterone percentage on 12-03-2021 Testosterone Free/Testosterone.tota l [Mass fraction] 2.91 % 0.50-2.80 [facility] Work Phone: Hematocrit Auto (Bld) [Volum e fraction]on 12-03-2021 Hematocrit (Bld) [Volume fraction] 37.8 % 37-47 [facility] Work Phone: Hematocrit (Bld) [Volume fraction] 39.2 % 37-47 [facility] Work Phone: Ketones Test strip Ql (U)on 12-03-2021 Ketones Ql (U) Negative Negative [facility] Work Phone: Ketones Ql (U) Negative Negative [facility] Work Phone: Laboratory - Chemistry and C hemistry - challengeon 12-03-2021 ALP [Catalytic activity/Vol] 79 U/L 45-117 [facility] Work Phone: ALT [Catalytic activity/Vol] 25 U/L 13-56 [facility] Work Phone: CO2 [Moles/Vol] 25.0 mmol/L 21.0-32.0 [facility] Work Phone: Globulin (S) [Mass/Vol] 4.1 g/dL 2.2-4.2 [facility] Work Phone: Urea nitrogen/Creatinine [Mass ratio] 9.0 mg/mg 10-20 [facility] Work Phone: Laboratory - Hematology and Cell countson 12-03-2021 Erythrocyte distribution width (RBC) [Entitic vol] 40.2 fL 35.1-43.9 [facility] Work Phone: Erythrocyte distribution width (RBC) [Ratio] 13.0 % 11.6-14.6 [facility] Work Phone: Immature granulocytes/100 WBC (Bld) 0.300 % 0.0-0.9 [facility] Work Phone: Comment on above: IG% - Immature Granu locytes (promyelocytes, myelocytes and metamyelocytes) > 1% indicates that a LEFT SHIFT is Present. MCH (RBC) [Entitic mass] 27.5 pg 27.0-32.0 [facility] Work Phone: Nucleated RBC/100 WBC (Bld) [Ratio] 0 % 0-5 [facility] Work Phone: Erythrocyte distribution width (RBC) [Entitic vol] 40.2 fL 35.1-43.9 [facility] Work Phone: Erythrocyte distribution width (RBC) [Ratio] 13.0 % 11.6-14.6 [facility] Work Phone: Immature granulocytes/100 WBC (Bld) 0.200 % 0.0-0.9 [facility] Work Phone: Comment on above: IG% - Immature Granu locytes (promyelocytes, myelocytes and metamyelocytes) > 1% indicates that a LEFT SHIFT is Present. MCH (RBC) [Entitic mass] 26.9 pg 27.0-32.0 [facility] Work Phone: Nucleated RBC/100 WBC (Bld) [Ratio] 0 % 0-5 [facility] Work Phone: MCHC Auto (RBC) [Mass/Vol]on 12-03-2021 MCHC (RBC) [Mass/Vol] 32.3 g/dL [facility] Work Phone: MCHC (RBC) [Mass/Vol] 31.4 g/dL [facility] Work Phone: Mucus LM Ql (Urine sed)on Mucus Ql (Urine sed) 3+ /hpf [facility] Work Phone: Nitrite Test strip Ql (U)on 12-03-2021 Nitrite Ql (U) Negative Negative [facility] Work Phone: Nitrite Ql (U) Negative Negative [facility] Work Phone: No Panel Informationon 12-03 Estimated Creatinine Clearance Calc 77.34 ml/min [facility] Work Phone: Estimated GFR (MDRD) Amer 106 mL/min >60 [facility] Work Phone: Comment on above: GFR Calc Estimated GFR (MDRD) Non-Af Amer 88 mL/min >60 [facility] Work Phone: Comment on above: Non- GFR Calc Dehydroepiandrosterone Sulfate 143.0 ug/dL 57.3-279.2 [facility] Work Phone: Comment on above: Performed at: [facility] [address] [id number] Director: El Case PhD, Phone: [phone] at: [place] [id number] Director: Miguel Fay MD, Phone: [phone] Insulin Level 88.4 mU/L 2.6-37.6 [facility] Work Phone: Thyroid Stimulating Hormone (TSH) 0.53 uIU/mL 0.358-3.74 [facility] Work Phone: Platelets bldon 12-03-2021 Platelets (Bld) [#/Vol] 286 10*3/uL 150-450 [facility] Work Phone: Platelets (Bld) [#/Vol] 305 10*3/uL 150-450 [facility] Work Phone: Protein Test strip Ql (U)on 12-03-2021 Protein Ql (U) Negative Negative [facility] Work Phone: Protein Ql (U) Negative Negative [facility] Work Phone: Serum or plasma albumin kaylan urement (mass/volume)on 12-03-2021 Albumin [Mass/Vol] 3.5 g/dL 3.2-5.0 [facility] Work Phone: Serum or plasma albumin/glob ulin mass ratioon 12-03-2021 Albumin/Globulin [Mass ratio] 0.9 {ratio} 0.9-2.4 [facility] Work Phone: Serum or plasma calcium kaylan urement (mass/volume)on 12-03-2021 Calcium [Mass/Vol] 9.4 mg/dL 8.5-10.1 [facility] Work Phone: Serum or plasma cortisol sheila surement (mass/volume)on 12-03-2021 Cortisol [Mass/Vol] 13.30 ug/dL 3.44-22.45 [facility] Work Phone: Comment on above: Adult (AM) 5.27 - 22 .45 ug/dL Adult (PM) 3.44 - 16.76 ug/dLPlease note revised CORTISOL reference range effective 2019. Serum or plasma creatinine m easurement (mass/volume)on 12-03-2021 Creatinine [Mass/Vol] 0.78 mg/dL 0.55-1.02 [facility] Work Phone: Comment on above: The validity of the calculated GFR & GFRAA in patients over 70 years has not been determined. Clinical correlation is essential. Serum or plasma estradiol (E 2) measurement (mass/volume)on 12-03-2021 E2 [Mass/Vol] 270.3 pg/mL [facility] Work Phone: Comment on above: NORMAL REFERENCE RAN GES FEMALE FOLLICULAR 21.4 - 164.8 pg/mL MID-CYCLE PEAK 49.9 - 367.2 pg/mL LUTEAL 40.2 - 259.0 pg/mL POST-MENOPAUSAL ON MHT <11.0 - 462.1 pg/mL NOT ON MHT <11.0 - 58.3 pg/mL MALE <11.0 - 52.5 pg/mL NOTE:[employer] HAS CONFIRMED THE DRUG FULVETRANT (FASLODEX) MAY CAUSE FALSELY ELEVATED ESTRADIOL RESULTS WHEN USING THIS TEST METHOD. IF PATIENT IS TAKING FULVESTRANT AN ALTERNATIVE METHOD SHOULD BE USED TO DETERMINE ESTRADIOL CONCENTRATION. Serum or plasma progesterone measurement (mass/volume)on 12-03-2021 Progesterone [Mass/Vol] 0.85 ng/mL See Comment [facility] Work Phone: Comment on above: Progesterone Referen ce Table: UNITS Female: Follicular 0.15 - 1.40 ng/mL Luteal 3.34 - 25.56 ng/mL Mid-luteal 4.44 - 28.03 ng/mL Postmenopausal 0.0 - 0.73 ng/mL : 1st Trimester 11.22 - 90.00 ng/mL 2nd Trimester 25.55 - 89.40 ng/mL 3rd Trimester 48.40 -422.50 ng/mL Serum or plasma testosterone free measurement (mass/volume)on 12-03-2021 Testosterone Free [Mass/Vol] 1.54 ng/dL 0.10-0.85 [facility] Work Phone: Serum or plasma urea nitroge n measurement (mass/volume)on 12-03-2021 Urea nitrogen [Mass/Vol] 7 mg/dL 7-18 [facility] Work Phone: Squamous epithelial cells de tection in urine sediment by light microscopyon 12-03-2021 Epithelial cells.squamous LM Ql (Urine sed) 5-10 SEEN /hpf 5-10 [facility] Work Phone: Thin prep Papanicolaou smear with manual screeningon 12-03-2021 Thin prep Papanicolaou smear with manual screening 17 U/L 15-37 [facility] Work Phone: Thin prep Papanicolaou smear with manual screening 9 5-15 [facility] Work Phone: Urine blood detectionon - RBC Ql (U) 25 /ul Negative [facility] Work Phone: RBC Ql (U) 0-5 SEEN /hpf 0-5 [facility] Work Phone: RBC Ql (U) Negative Negative [facility] Work Phone: Urine clarityon 12-03-2021 Clarity (U) Sl. Cloudy Clear [facility] Work Phone: Clarity (U) Clear Clear [facility] Work Phone: Urine color determinationon 12-03-2021 Color (U) Yellow Yellow [facility] Work Phone: Color (U) Yellow Yellow [facility] Work Phone: Urine glucose detectionon Glucose Ql (U) Normal mg/dl Normal [facility] Work Phone: Glucose Ql (U) Normal mg/dl Normal [facility] Work Phone: Urine leukocyte esterase det ection by dipstickon 12-03-2021 Leukocyte esterase Test strip Ql (U) Negative Negative [facility] Work Phone: Leukocyte esterase Test strip Ql (U) Negative Negative [facility] Work Phone: Urine pHon 12-03-2021 pH (U) 6.0 [pH] 5.0 - 8.0 [facility] Work Phone: pH (U) 6.0 [pH] 5.0 - 8.0 [facility] Work Phone: Urine sediment bacteria coun t by microscopy (number/high power field)on 12-03-2021 Bacteria LM.HPF (Urine sed) [#/Area] 2 /[HPF] None Seen [facility] Work Phone: Urine specific gravity measu rementon 12-03-2021 Specific gravity (U) [Rel density] 1.020 1.002-1.030 [facility] Work Phone: Specific gravity (U) [Rel density] 1.010 1.002-1.030 [facility] Work Phone: Urobilinogen Auto test strip Ql (U)on 12-03-2021 Urobilinogen Ql (U) Normal mg/dl Normal [facility] Work Phone: Urobilinogen Ql (U) Normal mg/dl Normal [facility] Work Phone: No Panel Informationon 10-24 Stool Calprotectin <16 ug/g 0-120 [facility] Work Phone: Comment on above: Concentration Interp retation Follow-Up<16 - 50 ug/g Normal None>50 -120 ug/g Borderline Re-evaluate in 4-6 weeks >120 ug/g Abnormal Repeat as clinically indicatedPerformed at: - [facility] [address] [id number] Director: Miguel Fay MD, Phone: [phone] Absolute lymphocyte counton 10-22-2021 Lymphocytes Auto (Unsp spec) [#/Vol] 3.37 10*3/uL 0.83-4.51 [facility] Work Phone: Atypical perinuclear antineu trophil cytoplasmic antibodies measurementon 10-22-2021 Neutrophil cytoplasmic Ab.perinuclear.atypica l IF (S) [Titer] <1:20 titer Neg:<1:20 [facility] Work Phone: Comment on above: The atypical pANCA p attern has been observed in asignificant percentage of patients with ulcerative colitis,primary sclerosing cholangitis and autoimmune hepatitis.Performed at: - [facility] [id number] [place], [place] [id number] Director: El Case PhD, Phone: [phone] at: [facility] [id number] Director: Miguel Fay MD, Phone: [phone] Basophil percentageon 2021 Basophil percentage < 0.2 AI 0.0-0.9 [facility] Work Phone: Basophils/100 WBC (Bld) 0.5 % 0-1 [facility] Work Phone: Bilirubin [Mass/Vol] 0.30 mg/dL 0.20-1.00 [facility] Work Phone: Comment on above: For patients on eltr ombopag therapy, use of Dimension [employer] TBIL is not recommended. Chloride [Moles/Vol] 106 mmol/L 98-107 [facility] Work Phone: Eosinophils/100 WBC (Bld) 2.7 % 0-5 [facility] Work Phone: Glucose [Mass/Vol] 99 mg/dL 74-106 [facility] Work Phone: Neutrophils (Bld) [#/Vol] 4.0 10*3/uL 2.0-7.7 [facility] Work Phone: Neutrophils/100 WBC (Bld) 48.9 % 47-70 [facility] Work Phone: Potassium [Moles/Vol] 3.8 mmol/L 3.5-5.1 [facility] Work Phone: Protein [Mass/Vol] 8.0 g/dL 6.4-8.2 [facility] Work Phone: Sodium [Moles/Vol] 138 mmol/L 136-145 [facility] Work Phone: WBC (Bld) [#/Vol] 8.2 10*3/uL 4.4-11.0 [facility] Work [facility]: Blood erythrocytes count (nu mber/volume)on 10-22-2021 RBC (Bld) [#/Vol] 4.40 10*6/uL 4.2-5.4 [facility] Work Phone: Blood hemoglobin measurement (mass/volume)on 10-22-2021 Hemoglobin (Bld) [Mass/Vol] 12.1 g/dL 12.0-15.0 [facility] Work Phone: Blood lymphocytes/100 leukoc yteson 10-22-2021 Lymphocytes/100 WBC (Bld) 41.0 % 19-41 [facility] Work Phone: Blood monocytes/100 leukocyt eson 10-22-2021 Monocytes/100 WBC (Bld) 6.5 % 0-10 [facility] Work Phone: Blood platelet mean volumeon 10-22-2021 Platelet mean volume (Bld) [Entitic vol] 9.0 fL 6.2-12.0 [facility] Work Phone: Determination of erythrocyte mean corpuscular volume (MCV)on 10-22-2021 MCV (RBC) [Entitic vol] 86.8 fL 81-99 [facility] Work Phone: Erythrocyte sedimentation ra dante 10-22-2021 ESR (Bld) [Velocity] 8 mm/h 0-30 [facility] Work Phone: Hematocrit Auto (Bld) [Volum e fraction]on 10-22-2021 Hematocrit (Bld) [Volume fraction] 38.2 % 37-47 [facility] Work Phone: Interpretation of serum or p lasma protein pattern by immunofixation (narrative resulton 10-22-2021 Protein Fractions Immunofixation Reynaldo [Interp] See comment [facility] Work Phone: Comment on above: Result: Not Observed Laboratory - Chemistry and C hemistry - challengeon 10-22-2021 ALP [Catalytic activity/Vol] 84 U/L 45-117 [facility] Work Phone: ALT [Catalytic activity/Vol] 32 U/L 13-56 [facility] Work Phone: CO2 [Moles/Vol] 28.0 mmol/L 21.0-32.0 [facility] Work Phone: Globulin (S) [Mass/Vol] 4.1 g/dL 2.2-4.2 [facility] Work Phone: Urea nitrogen/Creatinine [Mass ratio] 11.8 mg/mg 10-20 [facility] Work Phone: Laboratory - Hematology and Cell countson 10-22-2021 Erythrocyte distribution width (RBC) [Entitic vol] 41.5 fL 35.1-43.9 [facility] Work Phone: Erythrocyte distribution width (RBC) [Ratio] 13.0 % 11.6-14.6 [facility] Work Phone: Immature granulocytes/100 WBC (Bld) 0.400 % 0.0-0.9 [facility] Work Phone: Comment on above: IG% - Immature Granu locytes (promyelocytes, myelocytes and metamyelocytes) > 1% indicates that a LEFT SHIFT is Present. MCH (RBC) [Entitic mass] 27.5 pg 27.0-32.0 [facility] Work Phone: Nucleated RBC/100 WBC (Bld) [Ratio] 0 % 0-5 [facility] Work Phone: MCHC Auto (RBC) [Mass/Vol]on 10-22-2021 MCHC (RBC) [Mass/Vol] 31.7 g/dL 32-36 [facility] Work Phone: No Panel Informationon 10-22 Addendum Document Comment . [facility] Work Phone: Comment on above: Protein electrophore sis scan will follow via computer,mail, or linux devops engineer delivery. Centromere B Antibody <0.2 AI 0.0-0.9 [facility] Work Phone: Endomysial IgA Antibody Negative Negative [facility] Work Phone: Estimated GFR (MDRD) Amer 97 mL/min >60 [facility] Work Phone: Comment on above: GFR Calc Estimated GFR (MDRD) Non-Af Amer 80 mL/min >60 [facility] Work Phone: Comment on above: Non- GFR Calc Immunoglobulin E 83 IU/mL 6-495 [facility] Work Phone: Miscellaneous Test See comment [facility] Work Phone: Comment on above: Scanned image report available in EMR MACHINE SETTER SUPERVISOR Antibody 0.3 AI 0.0-0.9 [facility] Work Phone: Platelets bldon 10-22-2021 Platelets (Bld) [#/Vol] 321 10*3/uL 150-450 [facility] Work Phone: Serum DNA double strand anti body assay (units/volume)on 10-22-2021 DNA double strand Ab Qn (S) 1 [IU]/mL 0-9 [facility] Work Phone: Comment on above: Negative <5 Equivoca l 5 - 9 Positive >9 Serum Analisa-1 antibody assay (u nits/volume)on 10-22-2021 Analisa-1 extractable nuclear Ab Qn (S) <0.2 AI 0.0-0.9 [facility] Work Phone: Serum Scl-70 extractable nuc lear antibody assay (units/volume)on 10-22-2021 SCL-70 extractable nuclear Ab Qn (S) <0.2 AI 0.0-0.9 [facility] Work Phone: Serum Blank extractable nucl ear antibody detectionon 10-22-2021 Blank extractable nuclear Ab Ql (S) <0.2 AI 0.0-0.9 [facility] Work Phone: Serum npltz-2-fotmqibm measu rement by electrophoresison 10-22-2021 Alpha 1 globulin Elph [Mass/Vol] 0.3 g/dL 0.0-0.4 [facility] Work Phone: Alpha 1 globulin Elph [Mass/Vol] 0.8 g/dL 0.4-1.0 [facility] Work Phone: Serum classic neutrophil cyt oplasmic antibody assay (units/volume)on 10-22-2021 Neutrophil cytoplasmic Ab.classic Qn (S) <1:20 titer Neg:<1:20 [facility] Work Phone: Serum globulin measurement ( mass/volume)on 10-22-2021 Globulin (S) [Mass/Vol] 3.8 g/dL 2.2-3.9 [facility] Work Phone: Serum or plasma C reactive p rotein measurement (mass/volume)on 10-22-2021 CRP [Mass/Vol] 11.10 mg/L 0.0-3.0 [facility] Work Phone: Comment on above: C-Reactive Protein ( CRP) provides useful information for thediagnosis, therapy and monitoring of inflammatory processesand associated diseases. For the evaluation of Relative Riskfor Cardiovascular Disease, a High Sensitivity CRP (HSCRP)should be ordered. Serum or plasma IgA measurem ent (mass/volume)on 10-22-2021 IgA [Mass/Vol] 238 mg/dL 87-352 [facility] Work Phone: Serum or plasma IgG measurem ent (mass/volume)on 10-22-2021 IgG [Mass/Vol] 1256 mg/dL [phone] [facility] Work Phone: Serum or plasma IgM measurem ent (mass/volume)on 10-22-2021 IgM [Mass/Vol] 127 mg/dL 26-217 [facility] Work Phone: Serum or plasma albumin kaylan urement (mass/volume)on 10-22-2021 Albumin [Mass/Vol] 3.9 g/dL 2.9-4.4 [facility] Work Phone: Serum or plasma albumin/glob ulin mass ratioon 10-22-2021 Albumin/Globulin [Mass ratio] 1.0 {ratio} 0.9-2.4 [facility] Work Phone: Serum or plasma beta globuli n measurement by electrophoresis (mass/volume)on 10-22-2021 Beta globulin Elph [Mass/Vol] 1.4 g/dL 0.7-1.3 [facility] Work Phone: Serum or plasma calcium kaylan urement (mass/volume)on 10-22-2021 Calcium [Mass/Vol] 9.1 mg/dL 8.5-10.[address] [facility] Work Phone: Serum or plasma creatinine m easurement (mass/volume)on 10-22-2021 Creatinine [Mass/Vol] 0.85 mg/dL 0.55-1.02 [facility] Work Phone: Comment on above: The validity of the calculated GFR & GFRAA in patients over 70 years has not been determined. Clinical correlation is essential. Serum or plasma gamma globul in measurement by electrophoresis (mass/volume)on 10-22-2021 Gamma globulin Elph [Mass/Vol] 1.4 g/dL 0.4-1.8 [facility] Work Phone: Serum or plasma immunoelectr ophoresis interpretation (nominal result)on 10-22-2021 Interpretation IEP [Interp] Comment . [facility] Work Phone: Comment on above: No monoclonality det ected. Serum or plasma urea nitroge n measurement (mass/volume)on 10-22-2021 Urea nitrogen [Mass/Vol] 10 mg/dL 7-18 [facility] Work Phone: Serum perinuclear neutrophil cytoplasmic antibody titer by immunofluorescenceon 10-22-2021 Neutrophil cytoplasmic Ab.perinuclear IF (S) [Titer] <1:20 titer Neg:<1:20 [facility] Work Phone: Comment on above: The presence of posi tive fluorescence exhibiting P-ANCA orC-ANCA patterns alone is not specific for the diagnosis ofWegener's Granulomatosis (WG) or microscopic polyangiitis.Decisions about treatment should not be based solely onANCA IFA results. The [employer] ANCA [employer] Consensusrecommends follow up testing of positive sera with both WV-3 and MPO-ANCA enzyme immunoassays. As many as 5% serumsamples are positive only by EIA. Ref. AM J Clin Mktwah1883;111:507-513. Serum tissue transglutaminas e IgA antibody assay (units/volume)on 10-22-2021 tTG IgA Qn (S) <2 U/mL 0-3 [facility] Work Phone: Comment on above: Negative 0 - 3 Weak Positive 4 - 10 Positive >10 Tissue Transglutaminase (tTG) has been identified as the endomysial antigen. Studies have demonstr- ated that endomysial IgA antibodies have over 99% specificity for gluten sensitive enteropathy. Thin prep Papanicolaou smear with manual screeningon 10-22-2021 Thin prep Papanicolaou smear with manual screening 26 U/L 15-37 [facility] Work Phone: Thin prep Papanicolaou smear with manual screening 4 5-15 [facility] Work Phone: Thin prep Papanicolaou smear with manual screening 164 U/L 84-246 [facility] Work Phone: Thin prep Papanicolaou smear with manual screening 1.1 0.7-1.7 [facility] Work Phone: Total protein bloodon 2021 Protein [Mass/Vol] 7.7 g/dL 6.0-8.5 [facility] Work Phone: No Panel Informationon 10-02 [facility] Gram stain for investigation of transfusion reactionon 08-15-2021 Microscopic observation Gram stain Nom (Unsp spec) [facility] Work Phone: LABORATORYOrdered By: Amarilys Hutchinson on 07-25-2021 Basophil, Absolute 0.10 103/mcL Invalid Interpretation Code 0.00 - 0.19 10^3/mcL AO Auto Heme SS Basophils/100 WBC (Bld) 0.5 % Invalid Interpretation Code 0.0 - 2.5 % AO Auto Heme SS Calcium [Mass/Vol] 9.0 mg/dL Invalid Interpretation Code 8.4 - 10.2 mg/dL AO ADM SS Chloride [Moles/Vol] 102 mmol/L Invalid Interpretation Code 98 - 107 mmol/L AO ADM SS CO2 [Moles/Vol] 25 mmol/L Invalid Interpretation Code 22 - 29 mmol/L AO ADM SS Creatinine [Mass/Vol] 0.69 mg/dL Invalid Interpretation Code 0.55 - 1.02 mg/dL AO ADM SS Electrolyte Balance 11.0 mEq/L Invalid Interpretation Code 4.0 - 15.0 mEq/L AO ADM SS Eosinophil, Absolute 0.20 103/mcL Invalid Interpretation Code 0.00 - 0.40 10^3/mcL AO Auto Heme SS Eosinophils/100 WBC (Bld) 1.7 % Invalid Interpretation Code 0.0 - 7.0 % AO Auto Heme SS Erythrocyte distribution width (RBC) [Ratio] 14.2 % Invalid Interpretation Code 11.5 - 14.5 % AO Auto Heme SS Glucose [Mass/Vol] 106 mg/dL Invalid Interpretation Code 70 - 105 mg/dL AO ADM SS Hematocrit (Bld) [Volume fraction] 39.9 % Invalid Interpretation Code 37.0 - 47.0 % AO Auto Heme SS Hemoglobin (Bld) [Mass/Vol] 12.9 G/dL Invalid Interpretation Code 12.0 - 16.0 G/dL AO Auto Heme SS Lymphocyte, Absolute 3.50 103/mcL Invalid Interpretation Code 0.77 - 3.85 10^3/mcL AO Auto Heme SS Lymphocytes/100 WBC (Bld) 27.3 % Invalid Interpretation Code 10.0 - 50.0 % AO Auto Heme SS MCH (RBC) [Entitic mass] 26.9 pg Invalid Interpretation Code 27.0 - 31.2 pg AO Auto Heme SS MCHC (RBC) [Mass/Vol] 32.3 G/dL Invalid Interpretation Code 33.0 - 37.0 G/dL AO Auto Heme SS MCV (RBC) [Entitic vol] 83.3 fL Invalid Interpretation Code 80.0 - 94.0 fL AO Auto Heme SS Monocyte, Absolute 0.80 103/mcL Invalid Interpretation Code 0.15 - 1.00 10^3/mcL AO Auto Heme SS Monocytes/100 WBC (Bld) 6.2 % Invalid Interpretation Code 1.7 - 13.0 % AO Auto Heme SS Neutrophil, Absolute 8.40 103/mcL Invalid Interpretation Code 2.85 - 6.16 10^3/mcL AO Auto Heme SS Neutrophils/100 WBC (Bld) 64.3 % Invalid Interpretation Code 37.0 - 80.0 % AO Auto Heme SS Platelet mean volume (Bld) [Entitic vol] 7.6 fL Invalid Interpretation Code 7.4 - 10.4 fL AO Auto Heme SS Platelets (Bld) [#/Vol] 341 103/mcL Invalid Interpretation Code 130 - 400 10^3/mcL AO Auto Heme SS Potassium [Moles/Vol] 3.8 mmol/L Invalid Interpretation Code 3.5 - 5.1 mmol/L AO ADM SS RBC (Bld) [#/Vol] 4.79 106/mcL Invalid Interpretation Code 4.20 - 5.40 10^6/mcL AO Auto Heme SS Sodium [Moles/Vol] 138 mmol/L Invalid Interpretation Code 136 - 145 mmol/L AO ADM SS Urea nitrogen [Mass/Vol] 11 mg/dL Invalid Interpretation Code 7 - 18 mg/dL AO ADM SS Urea nitrogen/Creatinine [Mass ratio] 16 ratio Invalid Interpretation Code 7 - 27 ratio AO ADM SS WBC (Bld) [#/Vol] 13.00 103/mcL Invalid Interpretation Code 4.60 - 10.80 10^3/mcL AO Auto Heme SS Appearance (U) Clear (07/25/21 1:22 PM) Invalid Interpretation Code Clear AO Auto Urine SS Bilirubin Ql (U) Negative (07/25/21 1:22 PM) Invalid Interpretation Code Negative AO Auto Urine SS Color (U) Yellow (07/25/21 1:22 PM) Invalid Interpretation Code AO Auto Urine SS Glucose Test strip (U) [Mass/Vol] Negative Invalid Interpretation Code Negativemg/d L AO Auto Urine SS HCG ( test) Ql Negative (07/25/21 1:22 PM) Invalid Interpretation Code AO Manual Urine SS Hemoglobin Auto test strip (U) [Mass/Vol] Trace *ABN* (07/25/21 1:22 PM) Invalid Interpretation Code Negative AO Auto Urine SS Ketones Ql (U) Negative Invalid Interpretation Code Negativemg/d L AO Auto Urine SS test (u) int Not detected Invalid Interpretation Code AO Manual Urine SS UA Leuk Est Negative (07/25/21 1:22 PM) Invalid Interpretation Code Negative AO Auto Urine SS UA Nitrite Negative (07/25/21 1:22 PM) Invalid Interpretation Code Negative AO Auto Urine SS UA pH 7.0 (07/25/21 1:22 PM) Invalid Interpretation Code 5.0 - 8.0 AO Auto Urine SS UA Protein Negative Invalid Interpretation Code Negativemg/d L AO Auto Urine SS UA Spec Grav 1.015 (07/25/21 1:22 PM) Invalid Interpretation Code 1.015-1.025 AO Auto Urine SS UA Specimen Type Clean Catch (07/25/21 1:22 PM) Invalid Interpretation Code AO Auto Urine SS UA Urobilinogen 0.2 E.U./dL Invalid Interpretation Code 0.2-1.0E.U./ dL AO Auto Urine SS LABORATORYOrdered By: SYSTEM SYSTEM on 07-25-2021 GFR 116 ml/min/1.73sqm Invalid Interpretation Code AO Chemistry S GFR Non- 96 ml/min/1.73sqm Invalid Interpretation Code AO Chemistry S Basophil percentageon 2021 Creatinine [Mass/Vol] 0.7 mg/dL 0.55-1.02 [facility] Work Phone: No Panel Informationon 06-20 Bedside Estimated GFR (eGFR) > 60.0000 mL/min >60 [facility] Work Phone: Aldolase ser/plason 05-15-19 Aldolase [Catalytic activity/Vol] 4.1 mU/mL [facility] Work Phone: Basophil percentageon 2021 Basophil percentage Not Reportable [facility] Work Phone: Bilirubin [Mass/Vol] 0.50 mg/dL 0.20-1.00 [facility] Work Phone: Comment on above: For patients on eltr ombopag therapy, use of Dimension [place] TBIL is not recommended. Chloride [Moles/Vol] 105 mmol/L 98-107 [facility] Work Phone: Glucose [Mass/Vol] 93 mg/dL 74-106 [facility] Work Phone: Potassium [Moles/Vol] 3.7 mmol/L 3.5-5.1 [facility] Work Phone: Protein [Mass/Vol] 7.7 g/dL 6.4-8.2 [facility] Work Phone: Sodium [Moles/Vol] 139 mmol/L 136-145 [facility] Work Phone: WBC (Bld) [#/Vol] 8.1 10*3/uL 4.4-11.0 [facility] Work Phone: Blood erythrocytes count (nu mber/volume)on 05-15-2021 RBC (Bld) [#/Vol] 4.61 10*6/uL 4.2-5.4 [facility] Work Phone: Blood hemoglobin measurement (mass/volume)on 05-15-2021 Hemoglobin (Bld) [Mass/Vol] 13.0 g/dL 12.0-15.0 [facility] Work Phone: Blood platelet mean volumeon 05-15-2021 Platelet mean volume (Bld) [Entitic vol] 9.4 fL 6.2-12.0 [facility] Work Phone: Determination of erythrocyte mean corpuscular volume (MCV)on 05-15-2021 MCV (RBC) [Entitic vol] 84.6 fL 81-99 [facility] Work Phone: Erythrocyte sedimentation ra dante 05-15-2021 ESR (Bld) [Velocity] 6 mm/h 0-30 [facility] Work Phone: Hematocrit Auto (Bld) [Volum e fraction]on 05-15-2021 Hematocrit (Bld) [Volume fraction] 39.0 % 37-47 [facility] Work Phone: Laboratory - Chemistry and C hemistry - challengeon 05-15-2021 ALP [Catalytic activity/Vol] 82 U/L 45-117 [facility] Work Phone: ALT [Catalytic activity/Vol] 30 U/L 13-56 [facility] Work Phone: CO2 [Moles/Vol] 27.0 mmol/L 21.0-32.0 [facility] Work Phone: Cobalamin (Vitamin B12) [Mass/Vol] 839 pg/mL 211-911 [facility] Work Phone: Globulin (S) [Mass/Vol] 4.0 g/dL 2.2-4.2 [facility] Work Phone: Myoglobin [Mass/Vol] ng/mL [facility] Work Phone: Comment on above: Performed at: [place], [place] [id number] Director: El Case PhD, Phone: [phone] Urea nitrogen/Creatinine [Mass ratio] 9.8 mg/mg 10-20 [facility] Work Phone: Laboratory - Hematology and Cell countson 05-15-2021 Erythrocyte distribution width (RBC) [Entitic vol] 40.9 fL 35.1-43.9 [facility] Work Phone: Erythrocyte distribution width (RBC) [Ratio] 13.2 % 11.6-14.6 [facility] Work Phone: MCH (RBC) [Entitic mass] 28.2 pg 27.0-32.0 [facility] Work Phone: MCHC Auto (RBC) [Mass/Vol]on 05-15-2021 MCHC (RBC) [Mass/Vol] 33.3 g/dL 32-36 [facility] Work Phone: No Panel Informationon 05-15 Anti-Nuclear Antibody Screen Negative Negative [facility] Work Phone: Comment on above: Performed at: [place], [place] [id number] Director: El Case PhD, Phone: [phone] Centromere B Antibody Not Reportable [facility] Work Phone: Estimated GFR (MDRD) Amer 101 mL/min >60 [facility] Work Phone: Comment on above: GFR Calc Estimated GFR (MDRD) Non-Af Amer 84 mL/min >60 [facility] Work Phone: Comment on above: Non- GFR Calc Free Lambda Light Chains, Quant 15.5 mg/L [facility] Work Phone: MACHINE SETTER SUPERVISOR Antibody Not Reportable [facility] Work Phone: Platelets bldon 05-15-2021 Platelets (Bld) [#/Vol] 350 10*3/uL 150-450 [facility] Work Phone: Serum DNA double strand anti body assay (units/volume)on 05-15-2021 DNA double strand Ab Qn (S) Not Reportable [facility] Work Phone: Serum Analisa-1 antibody assay (u nits/volume)on 05-15-2021 Analisa-1 extractable nuclear Ab Qn (S) Not Reportable [facility] Work Phone: Serum Scl-70 extractable nuc lear antibody assay (units/volume)on 05-15-2021 SCL-70 extractable nuclear Ab Qn (S) Not Reportable [facility] Work Phone: Serum Blank extractable nucl ear antibody detectionon 05-15-2021 Blank extractable nuclear Ab Ql (S) Not Reportable [facility] Work Phone: Serum immunoglobulin kappa l ight chains/immunoglobulin lambda light chains mass ratioon 05-15-2021 Immunoglobulin light chains.kappa/Immunoglo bulin light chains.lambda (S) [Mass ratio] 1.01 [facility] Work Phone: Serum or plasma C reactive p rotein measurement (mass/volume)on 05-15-2021 CRP [Mass/Vol] 9.19 mg/L 0.0-3.0 [facility] Work Phone: Comment on above: C-Reactive Protein ( CRP) provides useful information for thediagnosis, therapy and monitoring of inflammatory processesand associated diseases. For the evaluation of Relative Riskfor Cardiovascular Disease, a High Sensitivity CRP (HSCRP)should be ordered. Serum or plasma albumin kaylan urement (mass/volume)on 05-15-2021 Albumin [Mass/Vol] 3.7 g/dL 3.2-5.0 [facility] Work Phone: Serum or plasma albumin/glob ulin mass ratioon 05-15-2021 Albumin/Globulin [Mass ratio] 0.9 {ratio} 0.9-2.4 [facility] Work Phone: Serum or plasma calcium kaylan urement (mass/volume)on 05-15-2021 Calcium [Mass/Vol] 8.9 mg/dL 8.5-10.1 [facility] Work Phone: Serum or plasma creatinine m easurement (mass/volume)on 05-15-2021 Creatinine [Mass/Vol] 0.82 mg/dL 0.55-1.02 [facility] Work Phone: Comment on above: The validity of the calculated GFR & GFRAA in patients over 70 years has not been determined. Clinical correlation is essential. Serum or plasma folate measu rement (mass/volume)on 05-15-2021 Folate [Mass/Vol] 63.60 ng/mL 3.1-55.4 [facility] Work Phone: Serum or plasma immunoglobul in kappa light chains measurement (mass/volume)on 05-15-2021 Immunoglobulin light chains.kappa [Mass/Vol] 15.7 mg/L [facility] Work Phone: Serum or plasma urea nitroge n measurement (mass/volume)on 05-15-2021 Urea nitrogen [Mass/Vol] 8 mg/dL 7-18 [facility] Work Phone: Thin prep Papanicolaou smear with manual screeningon 05-15-2021 Thin prep Papanicolaou smear with manual screening 26 U/L 15-37 [facility] Work Phone: Thin prep Papanicolaou smear with manual screening 7 5-15 [facility] Work Phone: Laboratory - Microbiology an d Antimicrobial susceptibilityon 04-28-2021 SARS-CoV-2 (COVID-19) RNA EL+probe Ql (Unsp spec) Detected Not Detect [facility] Work Phone: Comment on above: Normal Reference Ran ge: Not DetectedMethod:(RT-PCR) real-time reverse transcriptase PCRLuminex NAKUL Instrument*The Food and Drug Administration (FDA) has issued an Emergency Use Authorization (EAU) for the NAKUL SARS-CoV-2 Assay for the rapid detection of the virus that causes COVID-19. This test has been validated, but the FDAs independent review of this validation is pending.*Negative results do not preclude infection and should not be used as the sole basis for treatment or patient management. Optimum specimen types and timing for peak viral levels during infections caused by SARS-CoV-2 have not been determined. Collection of multiple specimens from the same patient may be necessary to detect the virus. The possibility of a false negative result should be considered if the patient has clinical presentation or has had recent exposure. No Panel Informationon 02-13 Normal [id number] n 320 Work Phone: Falls Risk Screeningon 01-02 Fall risk assessment b) One or more fall s in the last year [id number] [facility] Work Phone: Last menstrual period start date [id number] [facility] Work Phone: Tobacco use status CPHS b) No [id number] [facility] Work Phone: ALT - Alanine Aminotransfera se, Serumon 12-11-2020 ALT With P-5'-P [Catalytic activity/Vol] 27 U/L 7 - 45 [facility] Work Phone: Comment on above: Patients treated wit h Sulfasalazine may generate falsely decreased results for ALT. Blood Urea Nitrogen, Serumon 12-11-2020 Urea nitrogen [Mass/Vol] 9 mg/dL 6 - 23 [facility] Work Phone: C Reactive Protein, Serumon 12-11-2020 CRP [Mass/Vol] 1.07 mg/dL Abnormal [facility] Work Phone: Comment on above: REF VALUE< 1.00 C3 Complement, Serumon 12-11 Complement C3 [Mass/Vol] 194 mg/dL 87 - 200 [facility] Work Phone: C4 Complement, Serumon 12-11 Complement C4 [Mass/Vol] 27 mg/dL 10 - 50 -[facility] Work Phone: Complete Blood Count + Diffe rentialon 12-11-2020 Basophils/100 WBC (Bld) 0.4 % 0.0 - 2.0 [facility] Work Phone: Erythrocyte distribution width (RBC) [Ratio] 13.4 % See Below [employer] [facility] Work Phone: Comment on above: Reference Range: 11. 5 - 14.5 Hematocrit (Bld) [Volume fraction] 41.2 % See Below [employer] [facility] Work Phone: Comment on above: Reference Range: 36. 0 - 46.0 Hemoglobin (Bld) [Mass/Vol] 12.5 g/dL See Below [employer] [facility] Work Phone: Comment on above: Reference Range: 12. 0 - 16.0 Lymphocytes/100 WBC (Bld) 35.5 % See Below [employer] [facility] Work Phone: Comment on above: Reference Range: 13. 0 - 44.0 MCHC (RBC) [Mass/Vol] 30.3 g/dL below low threshold See Below [employer] [facility] Work Phone: Comment on above: Reference Range: 32. 0 - 36.0 MCV (RBC) [Entitic vol] 91 fL 80 - 100 -[facility] Work Phone: Monocytes/100 WBC (Bld) 7.4 % 2.0 - 10.0 -[facility] Work Phone: Neutrophils/100 WBC (Bld) 53.7 % See Below [facility] Work Phone: Comment on above: Reference Range: 40. 0 - 80.0 Platelets (Bld) [#/Vol] 362 10*3/uL 150 - 450 [facility] Work Phone: RBC (Bld) [#/Vol] 4.55 {x10E12/L} See Below [facility] Work Phone: Comment on above: Reference Range: 4.0 0 - 5.20 WBC (Bld) [#/Vol] 7.0 10*3/uL 4.4 - 11.3 [facility] Work Phone: Complete Blood Count + Differential 0.03 {x10E9/L} See Below [facility] Work Phone: Comment on above: Reference Range: 0.0 0 - 0.10 Complete Blood Count + Differential 0.19 {x10E9/L} See Below [facility] Work Phone: Comment on above: Reference Range: 0.0 0 - 0.70 Complete Blood Count + Differential 0.52 {x10E9/L} See Below [facility] Work Phone: Comment on above: Reference Range: 0.1 0 - 1.00 Complete Blood Count + Differential 2.48 {x10E9/L} See Below [facility] Work Phone: Comment on above: Reference Range: 1.2 0 - 4.80 Complete Blood Count + Differential 3.74 {x10E9/L} See Below [facility] Work Phone: Comment on above: Reference Range: 1.2 0 - 7.70 Complete Blood Count + Differential 2.7 % 0.0 - 6.0 [facility] Work Phone: Complete Blood Count + Differential 0.3 % 0.0 - 0.9 [facility] Work Phone: Comment on above: Immature Granulocyte Count (IG) includes promyelocytes, myelocytes and metamyelocytes but does not include bands. Percent differential counts (%) should be interpreted in the context of the absolute cell counts (cells/L). Complete Blood Count + Differential 0.0 {/100_WBC} 0.0-0.0 [facility] Work Phone: Creatinine, Serumon 12-12-19 21 Creatinine [Mass/Vol] 0.71 mg/dL See Below [facility] Work Phone: Comment on above: Reference Range: 0.5 0 - 1.05 Creatinine, Serum >60 >60 [facility] Work Phone: Comment on above: CALCULATIONS OF MCKENZIE MATED GFR ARE PERFORMED USING THE MDRD STUDY EQUATION FOR THE IDMS-TRACEABLE CREATININE METHODS. CLIN CHEM 2007;53:[id number] Laboratory - Chemistry and C hemistry - challengeon 12-11-2020 AST With P-5'-P [Catalytic activity/Vol] 25 U/L 9 - 39 [facility] Work Phone: Laboratory - Serology - non- microon 12-11-2020 Centromere protein B Ab Qn (S) <0.2 [facility] Work Phone: Comment on above: REF VALUES < 1.0 = N EGATIVE >=1.0 = POSITIVE Chromatin Ab Qn <0.2 [facility] Work Phone: Comment on above: REF VALUES < 1.0 = N EGATIVE >=1.0 = POSITIVE DNA double strand Ab Qn (S) 1.0 [IU]/mL [facility] Work Phone: Comment on above: REF VALUESNEGATIVE: <= 4 IU/MLEQUIVOCAL: 5- 9 IU/MLPOSITIVE: >=10 IU/ML Analisa-1 extractable nuclear Ab IA Ql (S) <0.2 agreement24 [id number] [facility] Work Phone: Comment on above: REF VALUES < 1.0 = N EGATIVE >=1.0 = POSITIVE Nuclear Ab Hep2 substrate Ql (S) Negative NEGATIVE agreement24 [email or web address] [facility] Work Phone: Comment on above: The Antinuclear Anti body (IAN) test was performed using indirect immunofluorescence assay with HEp-2 cells slide. Ribonucleoprotein extractable nuclear Ab IA Qn (S) 0.3 {AI} agreement24 [email or web address] [facility] Work Phone: Comment on above: REF VALUES < 1.0 = N EGATIVE >=1.0 = POSITIVE Ribosomal P Ab Qn (S) <0.2 [place] [facility] Work Phone: Comment on above: REF VALUES < 1.0 = N EGATIVE >=1.0 = POSITIVE SCL-70 extractable nuclear Ab IA Ql (S) <0.2 agreement24 [id number] [facility] Work Phone: Comment on above: REF VALUES < 1.0 = N EGATIVE >=1.0 = POSITIVE Sjogrens syndrome-A extractable nuclear Ab IA Qn (S) <0.2 agreement24 [id number] [facility] Work Phone: Comment on above: REF VALUES < 1.0 = N EGATIVE >=1.0 = POSITIVE Sjogrens syndrome-B extractable nuclear Ab IA Qn (S) <0.2 agreement24 [email or web address] [facility] Work Phone: Comment on above: REF VALUES < 1.0 = N EGATIVE >=1.0 = POSITIVE Blank extractable nuclear Ab IA Qn (S) <0.2 agreement24 [id number] [facility] Work Phone: Comment on above: REF VALUES < 1.0 = N EGATIVE >=1.0 = POSITIVE Blank extractable nuclear Ab+Ribonucleoprotein extractable nuclear Ab IA Ql (S) <0.2 [facility] Work Phone: Comment on above: REF VALUES < 1.0 = N EGATIVE >=1.0 = POSITIVE Sedimentation Rate, Erythroc yteon 12-11-2020 ESR (Bld) [Velocity] 7 mm/h 0 - 20 [facility] Work Phone: Tobacco Screening.on 021 Fall risk assessment a) No falls within the last year [facility] Work Phone: Tobacco use status CPHS b) No [facility] Work Phone: CNPNon 08-02-2020 CNPN Telephone (SPDIG) KAYA ARCE ([id number]) 1985 F FNS Date Time Provider Department 08/02/20 LINO YOUNG During your visit today, we recorded the following information about you: Janell Del Rosario RN 08/02/2020 9:40 AM Signed LEFT MESSAGE FOR ANY PROCEDURE:EGD Message left for patient regarding procedure appointment with us on 08-12-20. There may be dietary restrictions, along with a prescription. We sent you instructions in My Chart or through the mail. If you are on blood thinners or diabetic medication, speak to your ordering doctor for instructions on whether to take these meds before your appointment. . If you have any questions regarding the test or instructions, please call your ordering doctor. 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 You need a covid test within 72hrs of the appointment. We will call you with the hospital arrival time the day before your appt between 1p-6pm. Any other appointment time in my-chart or that you were given for arrival should be disregarded and may change. If you have questions, please call the office of the doctor doing your test. Thank you and have a great day. Janell Del Rosario RN Allergies As of Date: 08/02/2020 Noted Allergy Reaction KEFLEX (CEPHALEXIN) 05/09/2002 4 - Hives 10 - Anaphylaxis BEES 06/18/2010 4 - Hives 7 - Swelling CARDIZEM (DILTIAZEM HCL) 05/30/2018 5 - Intolerance Comments: Spikes BP DOXYCYCLINE 09/26/2008 8 - GI Upset Comments: Not able to tolerate due to GI effects EUCALYPTUS 06/07/2007 Comments: tachycardia close airway FLEXERIL (CYCLOBENZAPRINE) 04/28/2012 1 - Mental Status Change Comments: Made patient feel worse than before LATEX 08/15/2008 7 - Swelling MINOCYCLINE 03/07/2008 8 - GI Upset nitroglycerin suppositories [Othe*01/31/2008 NSAIDS (NON-STEROIDAL ANTI-INFLAM*2015 5 - Intolerance TIZANIDINE 12/04/2010 1 - Mental Status Change Comments: Low HR, cold and clammy (subjective only) VICODIN (HYDROCODONE-ACETAMINO PHE*03/31/2010 9 - Itching Date Reviewed: 07/29/2020 Reviewed by: Lita Iqbal APRN.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 - 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 Assessed Reason for Visit: Preparations For Procedures [899] Cmt: EGD instructions Prescriptions as of 08/02/2020 Sig: POLYETHYLENE GLYCOL 3350 17 G* Take 17 g by mouth twice sienna* POLYETHYLENE GLYCOL 3350 17 G* Use as directed for Miralax /* GATORADE SPORTS DRINK Use as directed for Miralax /* BISACODYL 5 MG TABLET Use as directed for Miralax /* POLYETHYLENE GLYCOL 3350 17 G* Use as directed for Miralax /* GATORADE SPORTS DRINK Use as directed for Miralax /* BISACODYL 5 MG TABLET Use as directed for Miralax /* CLINDAMYCIN 1 % TOPICAL GEL, * Apply to affected area once d* PROGESTERONE MICRONIZED 100 M* Take day 7-28 (day 1 = first* CHOLESTYRAMINE LIGHT 4 GRAM O* Start with 1 g 2-3x/week; and* CICLOPIROX 1 % SHAMPOO USE SHAMPOO ANDFACIAL WASH D* NYSTATIN 100,000 UNIT/GRAM TO* Apply 1 application to affect* OTC NUTRITIONAL SUPPLEMENT Take 1 capsule by mouth twice* Patient not taking: Reported on 04/29/2020 OTC NUTRITIONAL SUPPLEMENT 2-6 teaspoons per day, in div* Patient not taking: Reported on 04/29/2020 CHOLECALCIFEROL (VITAMIN D3) * Take 1 capsule by mouth one t* DICYCLOMINE 10 MG CAPSULE TAKE 1 TAB BY MOUTH BEFORE EA* Patient not taking: Reported on 12/05/2019 SOOLANTRA 1 % TOPICAL CREAM APPLY TO AFFECTED AREA EVERY * PANTOPRAZOLE 40 MG TABLET,DEL* Take 40 mg by mouth once sienna* ONDANSETRON 4 MG DISINTEGRATI* Take 1 tablet by mouth every * ACNOMEL 2 %-8 % CREAM Apply to affected area three * Patient not taking: Reported on 12/05/2019 FLURANDRENOLIDE 0.05 % LOTION Apply to affected area twice * ATENOLOL 25 MG TABLET TAKE 1/2-1 TAB BY MOUTH TWICE* ALBUTEROL SULFATE HFA 90 MCG/* Inhale 2 Puffs as instructed. POTASSIUM CHLORIDE ER 10 MEQ * Take 2 tablets by mouth once * Patient not taking: Reported on 04/29/2020 DOCUSATE SODIUM 100 MG CAPSULE Take 100 mg by mouth twice da* * CETIRIZINE 10 MG TABLET Take 1 tablet by mouth once d* * MULTI-VITAMIN ORAL Take by mouth once daily. 2 * Problem List As Of Date 08/02/2020 Noted Resolved PAIN IN JOINT, LOWER LEG [M25.569] 12/11/2005 01/24/2008 ASTHMA UNSPECIFIED [J45.909] 02/17/2006 CHRONIC RHINITIS [J31.0] 02/17/2006 DYSMETABOLIC SYNDROME X [E88.81] 02/17/2006 IBS (IRRITABLE BOWEL SYNDROME) [K58.9] 02/17/2006 ANAL FISSURE [K60.2] BENIGN NEOPLASM LG BOWEL [D12.6] RECTAL AND ANAL HEMORRHAGE [K62.5] 08/01/2008 ESOPHAGEAL REFLUX [K21.9] DEVIATED NASAL SEPTUM [J34.2] 07/12/2007 POLYCYSTIC OVARIES [E28.2] 11/11/2007 Urinary calculus, unspecified [N20.9] 12/22/2007 10/06/2017 IMPAIRED FASTING GLUCOSE [R73.01] 01/24/2008 ABN GLUCOSE-ANTEPARTUM [O99.810] 08/01/2008 THROMBOS HEMORRHOIDS NOS [K64.5] 03/24/2008 Routine general medical examination at [facility]*08/01/2008 11/21/2011 Cla (more content not included)... Normal [facility] XR ABDOMEN 1V SUPINEon 04-29 XR ABDOMEN 1V SUPINE Final Report DATE OF EXAM: Apr 29 2020 2:41PM GRX 5289 - XR ABDOMEN 1V SUPINE / PROCEDURE REASON: Kidney stone Physician Interpretation EXAM TITLE: XR ABDOMEN 1V SUPINE DATE: 04/29/2020 3:31 PM INDICATION: Left-sided abdominal pain COMPARISON: None. FINDINGS: There are several pelvic calcifications which are probably phleboliths although distal ureteral calculus is difficult to entirely exclude. Otherwise, there are no abnormal calcifications overlying the urinary tract. Bowel gas pattern is nonobstructive. Bony structures are intact. IMPRESSION: Within normal limits. Youth Services Specialist: [facility]'S HOSPITALGuadalupe Transcribe Date/Time: Apr 29 2020 3:31P Dictated by : SEMAJ ROBLERO MD This examination was interpreted and the report reviewed and electronically signed by: SEMAJ ROBLERO MD on Apr 29 2020 3:32PM EST Normal [facility] , urineon 9 Beta HCG ( test) Ql (U) Negative Negative NA [place], [place] Comment on above: is the mos t common reason for HCG in urine, although choriocarcinoma, hydatidiform mole, and certain nontropho- blastic malignancies also result in detectable urinary HCG levels. Sensitivity = 20mIU/mL. Test Performed by [address] [address] [place], [place] Basic Metabolic Panelon - Anion gap [Moles/Vol] 10 mmol/L [place], [place] Calcium [Mass/Vol] 9.5 mg/dL 8.4 - 10. 4 mg/dL [place] Chloride [Moles/Vol] 106 mmol/L 98 - 10 7 mmol/L [place] CO2 [Moles/Vol] 23 mmol/L 22 - 30 mmol/L [place] Creatinine [Mass/Vol] 0.64 mg/dL 0.52 - 1.25 mg/dL [place] EGFR IF NonAfrican Lao >60.0 >60 mL/min [place], [place] Comment on above: Source- MDRD equatio n with creatinine calibration to IDMS(NKDEP) eGFR not recommended for drug dose adjustment GFR/1.73 sq M predicted among blacks MDRD (S/P/Bld) [Vol rate/Area] mL/min/{1.73_m2} >60 mL/min [place] Glucose [Mass/Vol] 95 mg/dL 70 - 100 mg/dL [place] Potassium [Moles/Vol] 3.7 mmol/L 3.5 - 5.1 mmol/L [place] Sodium [Moles/Vol] 139 mmol/L 135 - 145 mmol/L [place] Urea nitrogen [Mass/Vol] 9 mg/dL 7 - 20 mg/dL [place] Test Performed by [facility], [address] [place] [address] Hemoglobin and Hematocrit, B maria guadalupe 02-08-2019 Hematocrit (Bld) [Volume fraction] 37.8 % 35 - 47 % [place] Hemoglobin (Bld) [Mass/Vol] 12.6 g/dL 11.7 - 16 g/dL [place] Test Performed by [facility], [address] [place] [id number] [place] [address] CNTHERAPYon 12-16-2017 CNTHERAPY OT/PT/Speech Visit (PTMDRG) KAYA ARCE ([id number]) 1985 FDate Time Provider Department12/16/17 8:30 AM [place] ANDERSON (PT) PTMDRGEncounter Number: [id number] Time Provider Department [place]12/16/2017 8:30 AM [id number], JAMES (PT)PTMDRG [facility] for Visit: PT Eval [157] Patient Education [91]Primary Visit Diagnosis:Chronic left-sided low back pain with left-sided sciatica [M54.42, G89.29]Allergies As of Date: 12/16/2017 Noted Allergy ReactionBEES 06/18/2010 4 - Hives 7 - SwellingDOXYCYCLINE 09/26/2008 8 - GI Upset Comments: Not able to tolerate due to GI effectsEUCALYPTUS 06/07/2007 Comments: tachycardia close airwayFLEXERIL (CYCLOBENZAPRINE) 04/28/2012 1 - Mental Status Change Comments: Made patient feel worse than beforeKEFLEX (CEPHALEXIN) 05/09/2002 4 - Hives 10 - AnaphylaxisLATEX 08/15/2008 7 - SwellingMINOCYCLINE 03/07/2008 8 - GI Upsetnitroglycerin suppositories [Othe*01/31/2008NSAIDS (NON-STEROIDAL ANTI-INFLAM*2015 5 - IntoleranceTIZANIDINE 12/04/2010 1 - Mental Status Change Comments: Low HR, cold and clammy (subjective only)VICODIN (HYDROCODONE-ACETAMINO PHE*03/31/2010 9 - ItchingDate Reviewed: 11/15/2017Reviewed by: Cherry Veloz (Pa) - Fully AssessedPrescriptions as of 12/16/2017 Sig: POTASSIUM CHLORIDE ER [...] ORAL Take by mouth once daily. 2 *Progress Notes:Ky Anderson, PT/ATC 12/16/2017 11:36 AM SignedEpisode Visit Count: 1Therapist That Will Oversee The Plan Of Care: Ky AndersonStart of Care Date: 12/16/17Onset Date: 07/26/17Plan of Care Certification Date: 12/16/17Patient Identified by Name and Date of : YesREHABILITATION AND SPORTS THERAPYPHYSICAL THERAPY EVALUATIONPLAN OF CARE:Assessment: Kaya Arce presents with the diagnosis of LOW BACK PAIN withLEFT radiculopathy. She presents with impairments of pain, ROM, sitting,standing, strength, sleep, balance and activity tolerance. She may benefit fromskilled therapy services to improve ROM and strength, decrease pain complaintsand improve activity tolerance with decrease pain complaints. Patient is asingle mother who has a child with 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. Patient states that he isindependent with his ADL's so she does not need to lift or transfer him.Patient with impaired sleep due to complaints of LEFT hip and lower extremitypain.Classifi cationLow Back Pain Subgroup Classification: Graded activity subgroup: recommendedvisits 12.Graded Activity Subgroup Classification based on: disproportionate painPrognosis: FairFair due to: clinical presentation;coping skills;limited tolerance to activityGoals for Episode of Care: created on 12/16/17 through 03/16/18Independence in home exercise program.Patient will decrease pain rating by 2 points to meet minimal clinical importantdifference for numeric pain rating scale.Patient will increase active ROM of trunk to WNL and painfree to allow pt toimproved performance of ADLs and to normalize gait mechanics / gait pattern .Patient will increase strength of B lower extremity to 5/5 to allow for returnto prior functional status, normalized gait mechanics, perform ADLs andnegotiate stairs.Perform standing activities without pain.Improve postural awareness.Patient will be to sit with equal weightbearing B buttocks.Planned Interventions, Frequency, and Duration: Current Frequency: 2x/weekDuration: 12 weeksTotal Number of Visits Planned: 24Planned Treatment Interventions: Therapeutic exercise;Manual therapy;Therapeuticact ivities;Self-assisted management;Aquatic PT;Patient/Family/Care giverEducation;Modalit ies;Body Mechanics Training;Functional training;GeneralCondit ioningE-Stim UnattendedPLAN FOR NEXT VISIT: progress activity tolerance as able, try abdominal bracingand SLRPatient demonstrates good understanding of plan of care and treatment. Theabove goals and plan of care were discussed and agreed upon by patient/family.Transfe r of Care Due To: Closer to HomePatient transferring care to: [place]SUBJECT[place]: Kaya Arce is a 32 year old female seen today for Pt reportsslipping in the tub and landing on her R hip. Pt currently complaining of L LEradiculopathy and swelling in L hip area. Pt had L hip drained, took steroidsand had some slight change in swelling but is still present. Pt reportsprevious history of B foot drop. Pt is seeing a jewel bearing facer who diagnosedankylosing spondylitis. Pt had PT for L hip bursitis which included massage,strengthening and manual therapy. Pt did not get any relief of symptoms. Ptnotes hypersensitivity down her L leg. Pt repeats history of back problems thatwould worsen with increased activity level. Pt with difficultyascending/de scending stepsFunctional Limitations: walking;sitting;stair negotiation;bending;he avyexertion;physical activities;liftingPrio r Level of Function: Independent without limitationsPatient Goals: help decrease painIntake Information: Prescription presentPrevious Treatment: Physical Therapy?Falls Interview: Fall with injury in the last yearRelevant HistoryHobbies / Interests: art, cooking, bakingHome EnvironmentPatient Lives With: FamilyHome Type: Multi-LevelEntry To Home: StairsNumber Of Stairs Into Home: 3Number Of Stairs To Bed/Bath: 12Stairs to Bed/Bath with: Unilateral RailSpine HistorySymptoms Location at Onset: BackSymptoms Since Onset: WorseningPain is Worse Always: Sitting (walking on an incline)Pain is Better Sometimes: Lying (ice and heat; lidocaine patch)Sleeping Position: Supine (pillow under knees)Sleep Affected by Pain: Pain keeps from falling asleep;Pain awakensPain Score: 6/10 (7/10 L thigh to touch;feels like a deep bruise, deep burning)Pain Location: Low Back/Lumbar Spine - LeftDescription: Aching;Sharp;StabbingF requency: ContinuousPost Treatment Pain Score: No ChangeOBJECTIVE MEASURES WITH LEVEL OF FUNCTION:Posture / AlignmentPosture: Rounded shouldersLeg Length Discrepency: negativeGaitGait Observation: ambulates with lateral sway with decreased trunk rotationBalanceStatic Standing Balance: Static Standing BalanceStatic Standing Balance: unsteady with trunk ROMSpine ObservationsSpine Observations: reduced lumbar lordosis; sitting with weight shifted to theRSpine PalpationR Lumbar Spine Palpation Tenderness: Greater trochanter (extreme tendernessalong L greater trochanter)L Lumbar Spine Palpation Tenderness: Greater trochanter;PiriformisL umbar Spine AROMLumbar Flexion: Moderate limitation (distal patella; hinging in hips)Lumbar Extension: Moderate limitation (increase in back pain; decrease in legpain)Lumbar R Side-Bend: Moderate limitation (increase in L leg pain)Lumbar L Side-Bend: Moderate limitationLumbar R Rotation: Moderate limitation (increase in L leg pain)Lumbar L Rotation: Moderate limitataion (decrease in L leg pain)Repeated Test Movements - LumbarDirectional preference: YesDirectional Preference Direction: ExtensionLumbar Pretest Symptoms (Standing): L back and LERFIS - Symptoms During: increases (back pain and L LE pain)CORDELL - Symptoms During: decreases (L LE pain)LE FlexibilityFlexibility : Hamstring FlexibilityR Hamstring Flexibility: popliteal angle 25 degreesL Hamstring Flexibility: popliteal angle 25 degreesLE StrengthR Hip Flexion (L2): (painful, unable to lift)R Hip ABduction: 4/5R Hip ADduction: 4/5R Knee Extension (L3): 5/5R Knee Flexion: 5/5R Ankle Dorsiflexion (L4): 5/5R Ankle Plantar Flexion: 5/5R Great Toes Extension (L5, S1): 5/5L Hip Flexion (L2): (painful, unable to lift)L Hip ABduction: 4-/5 (pain in hooklying)L Hip ADduction: 4-/5 (painful in hooklying)L Knee Extension (L3): 4/5L Knee Flexion: 4/5L Ankle Dorsiflexion (L4): 4+/5L Ankle Plantar Flexion: 4+/5L Great Toes Extension (L5, S1): 4-/5Special Tests - Hip and SpineHip and Spine Special Tests: SLR TestSLR Test: Left Positive (45 degrees)Education:Educ ationLearning Preferences: Demonstration;Explanat ion;Performance;Printe d MaterialsBarriers: NoneLearning/education al needs: Health promotion;Home exercise program;Plan ofCare;Posture;Body MechanicsEducation Provided: Yes, see treatment interventions for education providedEducation Provided To: PatientEducation Mode/Type: Demonstration;Explanat ion/Discussion;Literat ure/PrintedMaterials;P erformanceResponse to Education/Teach Back: States/Identifies;Retu rnDemonstration;Requir es Review/Additional EducationTREATMENT:Kandy luationTherapeutic Exercise:1: *seated LAQ R/L LE 10x2: *seated L great toe extension/flexion 10x3: *prone lying or standing back bend 10xSkilled Intervention: Patient was educated in proper exercise technique andpurpose for exercises.Reviewed and educated patient on additions/changes for home exercise program asabove (*)Skilled judgment was provided in selection of appropriate interventions.Provided written instruction for home exercise program to facilitate properperformance and compliance.Correct performance of therapeutic exercises was facilitated with verbal cuing.Billing:Agnes: Evaluation - Low Complexity (55438)Therapeutic Exercise (40731): 1:1 time: 15 minutes (1 unit: 8-22 mins)Total time: 45 minutesKy Anderson PT/Lenore Anderson PT/MARY 12/24/2017 9:39 AM SignedAddended by: [place] ANDERSON on: 12/24/2017 09:39 AM Modules accepted: Orders Fo llow-up and Disposition History Recorded Normal [facility] PROGRESSon 12-16-2017 Protein mass conc HNO ID: [id number]: Ky (Pt) Elysia: (none)Author Type: Physical TherapistType: Progress NotesFiled: 12/16/2017 11:36 AMNote Text:Episode Visit Count: 1Therapist That Will Oversee The Plan Of Care: Ky AndersonStart of Care Date: 12/16/17Onset Date: 07/26/17Plan of Care Certification Date: 12/16/17Patient Identified by Name and Date of : YesREHABILITATION AND SPORTS THERAPYPHYSICAL THERAPY EVALUATIONPLAN OF CARE:Assessment: Kaya Arce presents with the diagnosis of LOW BACK PAINwith LEFT radiculopathy. She presents with impairments of pain, ROM,sitting, standing, strength, sleep, balance and activity tolerance. Shemay benefit from skilled therapy services to improve ROM and strength,decrease pain complaints and improve activity tolerance with decrease paincomplaints. Patient is a single mother who has a child with cerebralpalsy. Patient states that he is independent with his ADL's so she doesnot need to lift or transfer him. Patient with impaired sleep due tocomplaints of LEFT hip and lower extremity pain.ClassificationLow Back Pain Subgroup Classification: Graded activity subgroup:recommended visits 12.Graded Activity Subgroup Classification based on: disproportionate painPrognosis: FairFair due to: clinical presentation;coping skills;limited tolerance toactivityGoals for Episode of Care: created on 12/16/17 through 03/16/18Independence in home exercise program.Patient will decrease pain rating by 2 points to meet minimal clinicalimportant difference for numeric pain rating scale.Patient will increase active ROM of trunk to WNL and painfree to allow ptto improved performance of ADLs and to normalize gait mechanics / gaitpattern .Patient will increase strength of B lower extremity to 5/5 to allow forreturn to prior functional status, normalized gait mechanics, perform ADLsand negotiate stairs.Perform standing activities without pain.Improve postural awareness.Patient will be to sit with equal weightbearing B buttocks.Planned Interventions, Frequency, and Duration: Current Frequency:2x/weekDurat ion: 12 weeksTotal Number of Visits Planned: 24Planned Treatment Interventions: Therapeutic exercise;Manualtherapy ;Therapeutic activities;Self-assisted management;AquaticPT;P atient/Family/Caregive r Education;Modalities;B pauline MechanicsTraining;Func tional training;General ConditioningE-Stim UnattendedPLAN FOR NEXT VISIT: progress activity tolerance as able, try abdominalbracing and SLRPatient demonstrates good understanding of plan of care and treatment.The above goals and plan of care were discussed and agreed upon bypatient/family.Trans [place] of Care Due To: Closer to HomePatient transferring care to: [place]SUBJECTIVE: Kaya Arce is a 32 year old female seen today for Ptreports slipping in the tub and landing on her R hip. Pt currentlycomplaining of L LE radiculopathy and swelling in L hip area. Pt had Lhip drained, took steroids and had some slight change in swelling but isstill present. Pt reports previous history of B foot drop. Pt is seeinga jewel bearing facer who diagnosed ankylosing spondylitis. Pt had PT for Lhip bursitis which included massage, strengthening and manual therapy. Ptdid not get any relief of symptoms. Pt notes hypersensitivity down her Lleg. Pt repeats history of back problems that would worsen with increasedactivity level. Pt with difficulty ascending/descending stepsFunctional Limitations: walking;sitting;stair negotiation;bending;he avyexertion;physical activities;liftingPrio r Level of Function: Independent without limitationsPatient Goals: help decrease painIntake Information: Prescription presentPrevious Treatment: Physical Therapy?Falls Interview: Fall with injury in the last yearRelevant HistoryHobbies / Interests: art, cooking, bakingHome EnvironmentPatient Lives With: [facility] Type: Multi-LevelEntry To Home: StairsNumber Of Stairs Into Home: 3Number Of Stairs To Bed/Bath: 12Stairs to Bed/Bath with: Unilateral RailSpine HistorySymptoms Location at Onset: BackSymptoms Since Onset: WorseningPain is Worse Always: Sitting (walking on an incline)Pain is Better Sometimes: Lying (ice and heat; lidocaine patch)Sleeping Position: Supine (pillow under knees)Sleep Affected by Pain: Pain keeps from falling asleep;Pain awakensPain Score: 6/10 (7/10 L thigh to touch;feels like a deep bruise, deepburning)Pain Location: Low Back/Lumbar Spine - LeftDescription: Aching;Sharp;StabbingF requency: ContinuousPost Treatment Pain Score: No ChangeOBJECTIVE MEASURES WITH LEVEL OF FUNCTION:Posture / AlignmentPosture: Rounded shouldersLeg Length Discrepency: negativeGaitGait Observation: ambulates with lateral sway with decreased trunkrotationBalanceSt atic Standing Balance: Static Standing BalanceStatic Standing Balance: unsteady with trunk ROMSpine ObservationsSpine Observations: reduced lumbar lordosis; sitting with weight shiftedto the RSpine PalpationR Lumbar Spine Palpation Tenderness: Greater trochanter (extremetenderness along L greater trochanter)L Lumbar Spine Palpation Tenderness: Greater trochanter;PiriformisL umbar Spine AROMLumbar Flexion: Moderate limitation (distal patella; hinging in hips)Lumbar Extension: Moderate limitation (increase in back pain; decrease inleg pain)Lumbar R Side-Bend: Moderate limitation (increase in L leg pain)Lumbar L Side-Bend: Moderate limitationLumbar R Rotation: Moderate limitation (increase in L leg pain)Lumbar L Rotation: Moderate limitataion (decrease in L leg pain)Repeated Test Movements - LumbarDirectional preference: YesDirectional Preference Direction: ExtensionLumbar Pretest Symptoms (Standing): L back and LERFIS - Symptoms During: increases (back pain and L LE pain)CORDELL - Symptoms During: decreases (L LE pain)LE FlexibilityFlexibility : Hamstring FlexibilityR Hamstring Flexibility: popliteal angle 25 degreesL Hamstring Flexibility: popliteal angle 25 degreesLE StrengthR Hip Flexion (L2): (painful, unable to lift)R Hip ABduction: 4/5R Hip ADduction: 4/5R Knee Extension (L3): 5/5R Knee Flexion: 5/5R Ankle Dorsiflexion (L4): 5/5R Ankle Plantar Flexion: 5/5R Great Toes Extension (L5, S1): 5/5L Hip Flexion (L2): (painful, unable to lift)L Hip ABduction: 4-/5 (pain in hooklying)L Hip ADduction: 4-/5 (painful in hooklying)L Knee Extension (L3): 4/5L Knee Flexion: 4/5L Ankle Dorsiflexion (L4): 4+/5L Ankle Plantar Flexion: 4+/5L Great Toes Extension (L5, S1): 4-/5Special Tests - Hip and SpineHip and Spine Special Tests: SLR TestSLR Test: Left Positive (45 degrees)Education:Educ ationLearning Preferences: Demonstration;Explanat ion;Performance;Printe dMaterialsBarriers: NoneLearning/education al needs: Health promotion;Home exercise program;Plan ofCare;Posture;Body MechanicsEducation Provided: Yes, see treatment interventions for educationprovidedEduca tion Provided To: PatientEducation Mode/Type:Demonstratio n;Explanation/Discussi on;Literature/PrintedM aterials;PerformanceRe sponse to Education/Teach Back: States/Identifies;Retu rnDemonstration;Requir es Review/Additional EducationTREATMENT:Kandy luationTherapeutic Exercise:1: *seated LAQ R/L LE 10x2: *seated L great toe extension/flexion 10x3: *prone lying or standing back bend 10xSkilled Intervention: Patient was educated in proper exercise techniqueand purpose for exercises.Reviewed and educated patient on additions/changes for home exerciseprogram as above (*)Skilled judgment was provided in selection of appropriate interventions.Provided written instruction for home exercise program to facilitateproper performance and compliance.Correct performance of therapeutic exercises was facilitated with verbalcuing.Billing:Me martinez: Evaluation - Low Complexity (35701)Therapeutic Exercise (37422): 1:1 time: 15 minutes (1 unit: 8-22 mins)Total time: 45 minutesKy Anderson, PT/ATC [facility]Con 09-17-2017 [facility] REPORT [facility] DATE OF SERVICE: 09/17/2017REASON FOR VISIT: Left buttock mass.HISTORY OF PRESENT ILLNESS: This is a 32-year-old female who has been having painand swelling and a mass in the left buttock area for the last 2 months. She alreadyhas seen her family doctor who did a CAT scan and an x-ray but did not show anythingspecific. He also did a needle aspiration which shows some blood. He is the processof referring her to the specialist but so far has not seen any specialist. She cameto [facility] for a new opinion. No other acute problem at this visit.REVIEW OF SYSTEMS: Review of other systems normal.PAST MEDICAL, FAMILY HISTORY, SOCIAL HISTORY: Reviewed.ALLERGIES: KEFLEX, DOXYCYCLINE, AND LATEX.MEDICATION LIST: Reviewed.PHYSICAL EXAMINATION: General: She is awake, alert, not in distress, no dyspnea.Vital signs: Temperature 99.5, blood pressure 118/72, pulse 80, respirations 16,pulse oximetry 98% on room air. Pain score 5/10. Skin: Examination of the leftthigh and buttock revealed there is a soft tissue mass not very well defined on theleft buttock area, more toward ____ anterolateral aspect, about 5 to 6 cm indiameter. It is soft. No obvious fluctuation and has tiny ecchymosis which patientstates is from the needle aspiration. The rest of the skin overlying the mass looksnormal. There is slight discomfort on pressure. Skin temperature is normal. Therest of the exam is normal.ASSESSMENT: Left buttock mass.PLAN: Clinical findings were discussed with the patient in detail. I explained toher that I agree that this needs to be evaluated by a specialist, either surgeon ororthopedic surgeon. I want her to discuss with her family doctor for referral andthen discuss with a specialist for further evaluation and care of this mass. Nospecific treatment needed from [facility] right now. After discussion and explanation,the patient understands and agrees. Her questions were answered to her satisfaction. MANISH Thakur/[id number]: 09/17/2017 17:00DT: 09/18/2017 18:54SSI File#: [id number] #: [id number] [facility] PATIENT NAME: KAYA ARCE [id number] Doreen Mcdermott MEDICAL REC #: [id number], [place] [address] [facility] PHYSICIANDisclaimer - This document may contain phonetic, minor grammatical errors, or errorsdue to voice quality.Verified/Revie wed by11/22/17 0836 PAWPR [facility] PATIENT NAME: KAYA ARCE [id number] [facility] [address] Mcdermott MEDICAL REC #: [id number], [place] [address] [facility] PHYSICIAN [facility] [place] PATHOLOGY SPECIMENon 018 PATHOLOGY SPEC [facility] Comment on above: Order Comment: Comme nt: BX DUODENUMComment: BX TERMINAL ILEUMComment: BX RIGHT COLONComment: BX LEFT COLONComment: BX RECTUM Result Comment: Note : Specimens received on or after November:* Reports will be faxed to all physician's office.If you are a physician or have access to [facility]:* Pathology and Cytology reports are located in [facility] in the folder labeled Medical Record Forms.* Reports are also in the Physician Portal.* For assistance locating reports call: (LAB) [phone] Performed By: #### L PATH ####[place] [address] [place] [address] PREG URINE QUALon 04-26-2017 UR HCG QUAL Negative [facility] Comment on above: Order Comment: Campu s: MAIN Result Comment: Very dilute urines, as indicated by low specific gravity,may not contain senior customer service representative urinary hCG concentrationsand may result in a false negative result.Specific [place] = 1.004 Performed By: #### L UPREG ####[facility] [address]gt[address] [place] [address] C-REACTIVE PROTEINon 017 C reactive protein (CRP) 10.40 mg/L [facility] Comment on above: Order Comment: Is pa tient fasting? YES Result Comment: Card iovascular CRP Risk Stratification Low < 1.00 mg/L Average 1.00 - 3.00 mg/L High > 3.00 mg/LAbsence of acute inflammation < 3.0 mg/LAcute inflammation >10.0 mg/L Performed By: #### L CMP, LGFRP, LCARDIOCRP ####[facility] [address]jpaeg26674 [place] [address] CBC PLATELET AUTO DIFFon BASO ABS 0.04 K/uL Normal 0-0.20 [facility] Comment on above: Performed By: #### L CBCD, LWSR ####[facility] [address] [place] [address] 36953 Basophils/100 WBC Auto (Bld) 0.5 % Normal [facility] Comment on above: Performed By: #### L CBCD, LWSR ####[facility] [address] [place] [address] 78934 EOS ABS 0.12 K/uL Normal 0.10-0.30 [facility] Comment on above: Performed By: #### L CBCD, LWSR ####[facility] [address] [place] [address] 22512 Eosinophils/100 leukocytes 1.6 % Normal [facility] Comment on above: Performed By: #### L CBCD, LWSR ####[facility] [address] [place] [address] 86580 Erythrocyte distribution width Auto Ratio (RBC) 13.1 % Normal 11.5-14.5 [facility] Comment on above: Performed By: #### L CBCD, LWSR ####[facility] [address] [place] [address] 32270 Erythrocytes (RBC) 0.00 10*6/uL Normal [facility] Comment on above: Performed By: #### L CBCD, LWSR ####[facility] [address] [place] [address] 79281 Erythrocytes (RBC) 4.53 10*6/uL Normal 3.5-5.5 [facility] Comment on above: Performed By: #### L CBCD, LWSR ####[facility] [address] [place] [address] 33300 Hematocrit (HCT) 38.2 % Normal 36.0-48.0 [facility] Comment on above: Performed By: #### L CBCD, LWSR ####[facility] [address] [place] [address] 10590 Hemoglobin mass conc (Bld) 12.7 g/dL Normal 12.0-15.0 [facility] Comment on above: Performed By: #### L CBCD, LWSR ####[facility] [address] [place], [place] [id number] IG % 0.3 % Normal [facility] Comment on above: Performed By: #### L CBCD, LWSR ####[facility] [address] [place], [place] [id number] IG ABS 0.02 K/uL Normal [facility] Comment on above: Performed By: #### L CBCD, LWSR ####[facility] [address] [place] [address] Lymphocytes 2.65 10*3/uL Normal 1.2-4.0 [facility] Comment on above: Performed By: #### L CBCD, LWSR ####[facility] [address] [place], [place] [id number] Lymphocytes/100 leukocytes 34.6 % Normal [facility] Comment on above: Performed By: #### L CBCD, LWSR ####[facility] [address] [place] [address] 25985 MCH 28.0 pg Normal 25.4-34.6 [facility] Comment on above: Performed By: #### L CBCD, LWSR ####[facility] [address] [place] [address] 92453 MCHC mass conc (RBC) 33.2 g/dL Normal 30.0-36.0 [facility] Comment on above: Performed By: #### L CBCD, LWSR ####[facility] [address] [place] [address] 53832 MCV 84.3 fL Normal 79.0-98.0 [facility] Comment on above: Performed By: #### L CBCD, LWSR ####[facility] [address] [place] [address] 49480 MONO ABS 0.40 K/uL Normal 0-1.00 [facility] Comment on above: Performed By: #### L CBCD, LWSR ####[facility] [address]vibtf13976 [place] [address] Monocytes/100 leukocytes 5.2 % Normal [facility] Comment on above: Performed By: #### L CBCD, LWSR ####[facility] [address]jg57[address] [place] [address] NEUT ABS 4.42 K/uL Normal 1.9-8.0 [facility] Comment on above: Performed By: #### L CBCD, LWSR ####[facility] [address]j67373 [place] [address] Neutrophils/100 WBC Auto (Bld) 57.8 % Normal [facility] Comment on above: Performed By: #### L CBCD, LWSR ####[facility] [address]mozc79512 [place] [address] NRBC % 0.0 /100 WBC Normal 0 [facility] Comment on above: Performed By: #### L CBCD, LWSR ####[facility] [address] [place] [address] 78432 Platelet mean volume (PMV) 8.7 fL Normal 8.4-11.9 [facility] Comment on above: Performed By: #### L CBCD, LWSR ####[facility] [address] [place] [address] 60161 Platelets 292 10*3/uL Normal 140-440 [facility] Comment on above: Performed By: #### L CBCD, LWSR ####[facility] [address]rtq22721 [place] [address] WBC (Leukocytes) 7.7 10*3/uL Normal 3.9-11.0 [facility] Comment on above: Performed By: #### L CBCD, LWSR ####[facility] [address]amx05404 [place] [address] COMP METABOLIC PANELon 03-12 Alanine aminotransferase (ALT) 27 U/L Normal 7-45 [facility] Comment on above: Order Comment: Is pa tient fasting? YES Performed By: #### L CMP, LGFRP, LCARDIOCRP ####[facility] [address]zp78404 [place] [address] Albumin 4.2 g/dL Normal 3.4-5.0 [facility] Comment on above: Order Comment: Is pa tient fasting? YES Performed By: #### L CMP, LGFRP, LCARDIOCRP ####[facility] [address]ul[address] [place] [address] ALK PHOS TOTAL 78 U/L Normal 45-117 [facility] Comment on above: Order Comment: Is pa tient fasting? YES Performed By: #### L CMP, LGFRP, LCARDIOCRP ####[facility] [address] [place] [address] Aspartate aminotransferase (AST) 23 U/L Normal 13-39 [facility] Comment on above: Order Comment: Is pa tient fasting? YES Performed By: #### L CMP, LGFRP, LCARDIOCRP ####[facility] [address]dx04559 [place] [address] BILI TOTAL 0.4 mg/dL Normal 0-1.2 [facility] Comment on above: Order Comment: Is pa tient fasting? YES Performed By: #### L CMP, LGFRP, LCARDIOCRP ####[facility] T[address]moruqfr20510 [place] [address] Calcium 9.9 mg/dL Normal 8.6-10.3 [facility] Comment on above: Order Comment: Is pa tient fasting? YES Performed By: #### L CMP, LGFRP, LCARDIOCRP ####[facility] [address]tpneks[address]603 [place] [address] Chloride 104 mmol/L Normal 98-107 [facility] Comment on above: Order Comment: Is pa tient fasting? YES Performed By: #### L CMP, LGFRP, LCARDIOCRP ####[facility] Nbkfewydpe11884 [place] [address] CO2 26 mmol/L Normal 21-32 [facility] Comment on above: Order Comment: Is pa tient fasting? YES Performed By: #### L CMP, LGFRP, LCARDIOCRP ####[facility] [address]lllcnnx90646 [place] [address] Creatinine 0.71 mg/dL Normal 0.5-1.05 [facility] Comment on above: Order Comment: Is pa tient fasting? YES Performed By: #### L CMP, LGFRP, LCARDIOCRP ####[facility] [address]nsxrn12162 [place] [address] Glucose mass conc 90 mg/dL Normal 74-99 [facility] Comment on above: Order Comment: Is pa tient fasting? YES Performed By: #### L CMP, LGFRP, LCARDIOCRP ####[facility] [address]zp77[address] [place] [address] Potassium molar conc 3.8 mmol/L Normal 3.5-5.3 [facility] Comment on above: Order Comment: Is pa tient fasting? YES Performed By: #### L CMP, LGFRP, LCARDIOCRP ####[facility] [address] [place] [address] 47630 Protein 7.4 g/dL Normal 6.4-8.2 [facility] Comment on above: Order Comment: Is pa tient fasting? YES Performed By: #### L CMP, LGFRP, LCARDIOCRP ####[facility] [address] [place] [address] 49751 Sodium 138 mmol/L Normal 136-145 [facility] Comment on above: Order Comment: Is pa tient fasting? YES Performed By: #### L CMP, LGFRP, LCARDIOCRP ####[facility] [address]fdtyh40531 [place] [address] Urea nitrogen 11 mg/dL Normal 6-23 [facility] Comment on above: Order Comment: Is pa tient fasting? YES Performed By: #### L CMP, LGFRP, LCARDIOCRP ####[facility] [address]qfpwgmn88234 [place] [address] GLOMERULAR FILTRATION RATE E STon 03-12-2017 eGFR (non-black) mL/min/{1.73_m2} Normal > 60 [facility] Comment on above: Order Comment: Is pa tient fasting? YES Performed By: #### L CMP, LGFRP, LCARDIOCRP ####[facility] R[address]ftsedss09679 [place] [address] IF AMER > 90 Normal > 60 [facility] Comment on above: Order Comment: Is pa tient fasting? YES Result Comment: Effe ctive 08/22/14:CKD-EPI equation / based on IDMS traceable creatinine.Continue to use the CREAT CLR-DOSE (Cockgroft-Gault)value for determining medication dose. Performed By: #### L CMP, LGFRP, LCARDIOCRP ####[facility] [address]nu[address] [place] [address] IRON PROFILE W/FERRITINon FERR 41 ng/mL Normal 20-300 [facility] Comment on above: Performed By: #### L IP ####[facility] Klspsxvmna64755 [place] [address] Iron 101 ug/dL Normal 35-150 [facility] Comment on above: Performed By: #### L IP ####[facility] [address]ekdjl44933 [place] [address] IRON SAT 29 % Normal 25-45 [facility] Comment on above: Performed By: #### L IP ####[facility] [address]ep[address]82414 [place] [address] TIBC 354 ug/dL Normal 250-445 [facility] Comment on above: Performed By: #### L IP ####[facility] [address]qwnseb04744 [place] [address] SED RATE MANUALon 03-12-2017 WSR/MOD 16 mm/hr Normal 0-20 [facility] Comment on above: Performed By: #### L CBCD, LWSR ####[facility] [address]xar[address]53 [place] [address] Office Visiton 01-18-2017 Documentation of current medications (procedure) Done Invalid Interpretation Code [facility] Work Phone: Office Visit: annual follow up, pea sized spot on vaginaon 12-18-2016 Fall risk assessment No Invalid Interpretation Code [facility] Work Phone: Tobacco smoking status Never Invalid Interpretation Code [facility] Tobacco use status CPHS Never smoker Invalid Interpretation Code [facility] Lab Report: Calculi, Urinary w / Photoon 12-02-2016 Cholesterol Comment Invalid Interpretation Code . [facility] Work Phone: Color (U) Comment Invalid Interpretation Code . [facility] Work Phone: Microbiology: Culture, Genit al Comprehensiveon 11-29-2016 GE use only - for LinkLogic import when terms are not otherwise specified Gent Cult Comp Normal genital gilbert isolated Invalid Interpretation Code [facility] Office Visit: ER Followupon 11-26-2016 Tobacco smoking status Never Invalid Interpretation Code [facility] Tobacco use status HS Never smoker Invalid Interpretation Code [facility] Lab Report: Urinalysis, Rout ine (Dipstick)on 11-19-2016 Albumin Ql (U) Negative Invalid Interpretation Code Negative [facility] Work Phone: Bilirubin Ql (U) Negative Invalid Interpretation Code Negative [facility] Work Phone: Bilirubin Ql (U) Negative Invalid Interpretation Code Negative [facility] Work Phone: Clarity (U) Clear Invalid Interpretation Code Clear [facility] Work Phone: Color (U) Yellow Invalid Interpretation Code Yellow [facility] Work Phone: Glucose Ql (U) Normal mg/dl Invalid Interpretation Code Normal [facility] Work Phone: Ketones (U) [Mass/Vol] Negative Invalid Interpretation Code Negative [facility] Work Phone: Leukocyte esterase Test strip Ql (U) 25 High Negative [facility] Work Phone: NITRITE UR Negative Invalid Interpretation Code Negative [facility] Work Phone: Occult Blood, urine 10 High Negative [facility] Work Phone: OCCULT BLOOD-UR 10 High Negative [facility] Work Phone: pH (U) 7.0 [pH] Invalid Interpretation Code 5.0 - 8.0 [facility] Work Phone: Specific gravity Refractometry (U) [Rel density] 1.005 Invalid Interpretation Code 1.002-1.030 [facility] Work Phone: Urine, ketones presence Negative Invalid Interpretation Code Negative [facility] Work Phone: Urine, pH 7.0 [pH] Invalid Interpretation Code 5.0 - 8.0 [facility] Work Phone: Urine, protein Negative Invalid Interpretation Code Negative [facility] Work Phone: UROBILI Normal mg/dl Invalid Interpretation Code Normal [facility] Work Phone: Office Visit: UC: abd pain, nephrolithiasison 11-19-2016 Albumin Ql (U) Negative Invalid Interpretation Code [facility] Work Phone: Appearance (U) clear Invalid Interpretation Code [facility] Work Phone: Beta HCG ( test) Ql (U) Negative Invalid Interpretation Code [facility] Work Phone: Bilirubin Ql (U) Negative Invalid Interpretation Code [facility] Work Phone: blood in urine (hemoglobin) by dipstick 1+ Invalid Interpretation Code [facility] Work Phone: Color (U) lt. yellow Invalid Interpretation Code [facility] Work Phone: Glucose Test strip (U) [Mass/Vol] Negative Invalid Interpretation Code [facility] Work Phone: HCG.beta subunit ( test) Ql (U) Negative Invalid Interpretation Code [facility] Work Phone: Ketones (U) [Mass/Vol] Negative Invalid Interpretation Code [facility] Work Phone: Leukocyte esterase Test strip Ql (U) trace Invalid Interpretation Code [facility] Work Phone: Nitrite Ql (U) Negative Invalid Interpretation Code [facility] Work Phone: pH (U) 7.5 [pH] Invalid Interpretation Code [facility] Work Phone: Specific gravity Refractometry (U) [Rel density] 1.010 Invalid Interpretation Code [facility] Work Phone: Tobacco smoking status Never Invalid Interpretation Code [facility] Work Phone: Tobacco use status HS Never smoker Invalid Interpretation Code [facility] Work Phone: Urine, glucose presence Negative Invalid Interpretation Code [facility] Work Phone: Urine, nitrite presence Negative Invalid Interpretation Code [facility] Work Phone: Urine, urobilinogen presence 0.2 Invalid Interpretation Code [facility] Work Phone: Urobilinogen Ql (U) 0.2 Invalid Interpretation Code [facility] Work Phone: Lab Report: Miscellaneous La b Procedureon 11-13-2016 GE use only - for LinkLogic import when terms are not otherwise specified . Invalid Interpretation Code [facility] Work Phone: Lab Report: Adrenocorticotro pic Hormoneon 11-11-2016 Corticotropin (P) [Mass/Vol] 23.6 pg/mL Invalid Interpretation Code 7.2-63.3 [facility] Work Phone: Lab Report: CORTISOL SERUMon 11-09-2016 Cortisol [Mass/Vol] 15.70 ug/dL Invalid Interpretation Code 3.09-22.40 [facility] Work Phone: Lab Report: Free T3on 2016 Free T3 [Mass/Vol] 2.8 pg/mL Invalid Interpretation Code 2.18-3.98 [facility] Work Phone: Lab Report: T4 Free Directon 11-09-2016 Free T4 [Mass/Vol] 0.85 ng/dL Invalid Interpretation Code 0.76-1.46 [facility] Work Phone: Lab Report: Thyroid Stim Hor jana (TSH)on 11-09-2016 Thyroid stimulating hormone (TSH) 0.85 u[iU]/mL Invalid Interpretation Code 0.358-3.74 [facility] Work Phone: TSH Qn 0.85 m[IU]/L Invalid Interpretation Code 0.358-3.74 [facility] Work Phone: Lab Report: PAP I-G HPV Hi R iskon 10-28-2016 GE use only - for LinkLogic import when terms are not otherwise specified Negative Invalid Interpretation Code Negative [facility] Office Visit: new annualon 0 10-22-2016 Hemoglobin.gastrointes tinal Ql (Stl) not done Invalid Interpretation Code [facility] Work Phone: Tobacco smoking status Never Invalid Interpretation Code [facility] Work Phone: Tobacco use status CPHS Never smoker Invalid Interpretation Code [facility] Work Phone: Office Visit: UC: Ulcerative colitison 10-02-2016 Tobacco smoking status Never Invalid Interpretation Code [facility] Work Phone: Tobacco use status [facility] Never smoker Invalid Interpretation Code [facility] Work Phone: Lab Report: Miscellaneous La b Procedureon 08-31-2016 GE use only - for LinkLogic import when terms are not otherwise specified . Invalid Interpretation Code [facility] Work Phone: Lab Report: Free T3on 2016 Free T3 [Mass/Vol] 2.5 pg/mL Invalid Interpretation Code 2.18-3.98 [facility] Work Phone: Lab Report: T4 Free Directon 08-05-2016 Free T4 [Mass/Vol] 0.87 ng/dL Invalid Interpretation Code 0.76-1.46 [facility] Work Phone: Lab Report: Thyroid Stim Hor jana (TSH)on 08-05-2016 TSH Qn 0.54 m[IU]/L Invalid Interpretation Code 0.358-3.74 [facility] Work Phone: Office Visit: Lexii wong antonio 08-05-2016 Tobacco smoking status Never Invalid Interpretation Code [facility] Work Phone: Tobacco use status [facility] Never smoker Invalid Interpretation Code [facility] Work Phone: Lab Report: Miscellaneous La b Procedureon 10-28-2015 GE use only - for LinkLogic import when terms are not otherwise specified . Invalid Interpretation Code [facility] Work Phone: Lab Report: CRPon 10-23-2015 CRP [Mass/Vol] 1.53 mg/dL High Units converted. See lab report for original value. [facility] Work Phone: Lab Report: [facility] 10-23-2015 Albumin [Mass/Vol] 3.4 g/dL Invalid Interpretation Code 3.4-5.0 [facility] Work Phone: Albumin/Globulin [Mass ratio] 0.4560188 {ratio} Low 0.9-2.4 [facility] Work Phone: Albumin/Globulin Ratio 0.8 {ratio} Low 0.9-2.4 [facility] Work Phone: Alkaline phosphatase (ALP) 70 U/L Invalid Interpretation Code 50-136 [facility] Work Phone: ALP (Bld) [Catalytic activity/Vol] 70 U/L Invalid Interpretation Code [address] [facility] Work Phone: ALT [Catalytic activity/Vol] 16 U/L Invalid Interpretation Code 12-78 [facility] Work Phone: Anion gap 8 mmol/L Invalid Interpretation Code 5-15 [facility] Work Phone: Anion gap [Moles/Vol] 8 mmol/L Invalid Interpretation Code 5-15 [facility] Work Phone: AST [Catalytic activity/Vol] 11 U/L Low 15-37 [facility] Work Phone: Bilirubin [Mass/Vol] 0.20 mg/dL Invalid Interpretation Code 0.20-1.00 [facility] Work Phone: BUN/Creatinine Ratio 12.8 RATIO Invalid Interpretation Code 10-20 [facility] Work Phone: Calcium [Mass/Vol] 9.0 mg/dL Invalid Interpretation Code 8.5-10.1 [facility] Work Phone: Chloride [Moles/Vol] 102 mmol/L Invalid Interpretation Code 98-107 [facility] Work Phone: CO2 26.0 mmol/L Invalid Interpretation Code 21.0-32.0 [facility] Work Phone: CO2 (BldV) [Partial pressure] 26.0 mmol/L Invalid Interpretation Code 21.0-32.0 [facility] Work Phone: Creatinine [Mass/Vol] 0.78 mg/dL Invalid Interpretation Code 0.55-1.20 [facility] Work Phone: eGFR (non-black) 110 mL/min/{1.73_m2} Invalid Interpretation Code >60 [facility] Work Phone: GFR/1.73 sq M.predicted among non-blacks MDRD (S/P/Bld) [Vol rate/Area] 91 mL/min/{1.73_m2} Invalid Interpretation Code >60 [facility] Endocrinology Work Phone: Globulin 4.3 g/dL High 2.3-3.5 [facility] Work Phone: Globulin (S) [Mass/Vol] 4.3 g/dL High 2.3-3.5 [facility] Work Phone: Glomerular Filtration rate 110 mL/min Invalid Interpretation Code >60 [facility] Work Phone: Glucose [Mass/Vol] 80 mg/dL Invalid Interpretation Code 70-110 [facility] Work Phone: Potassium [Moles/Vol] 3.9 mmol/L Invalid Interpretation Code 3.5-5.1 [facility] Work Phone: Protein [Mass/Vol] 7.7 g/dL Invalid Interpretation Code 6.4-8.2 [facility] Work Phone: Sodium [Moles/Vol] 136 mmol/L Invalid Interpretation Code 136-145 [facility] Work Phone: Urea nitrogen [Mass/Vol] 10 mg/dL Invalid Interpretation Code 7-18 [facility] Work Phone: Urea nitrogen/Creatinine [Mass ratio] 12.9946527 mg/mg Invalid Interpretation Code 10-20 [facility] Work Phone: Lab Report: Erythrocyte Sed Rateon 10-23-2015 ESR (Bld) [Velocity] 17 mm/h Invalid Interpretation Code 0-20 [facility] Work Phone: Lab Report: GGTPon 6 Gamma glutamyl transferase [Catalytic activity/Vol] 21 U/L Invalid Interpretation Code 5-55 [facility] Work Phone: Lab Report: Lipaseon 016 LIPASE 241 U/L Invalid Interpretation Code 73-393 [facility] Work Phone: Lipase [Catalytic activity/Vol] 241 U/L Invalid Interpretation Code 73-393 [facility] Work Phone: Replaced Document: (P) CBC W /Diff, Automatedon 10-23-2015 MCH 26.9 pg Low 27.0-32.0 [facility] Work Phone: MCH (RBC) [Entitic mass] 26.9 pg Low 27.0-32.0 [facility] Work Phone: MCHC mass conc (RBC) 31.5 G/GL Low 32-[address] [facility] [address] [facility] Work Phone: mean corpuscular hemoglobin concentration, RBC 31.5 G/GL Low 32-36 [facility] Work Phone: Absolute Neut 5.5 X10 3/UL Invalid Interpretation Code 2.0-7.7 [facility] Work Phone: Basophils/100 WBC (Bld) 0.2 % Invalid Interpretation Code 0-1 [facility] Work Phone: Basophils/100 WBC Auto (Bld) 0.2 % Invalid Interpretation Code 0-1 [facility] Work Phone: Eosinophils/100 leukocytes 1.5 % Invalid Interpretation Code 0-5 [facility] Work Phone: Eosinophils/100 WBC (Bld) 1.5 % Invalid Interpretation Code 0-5 [facility] Work Phone: Erythrocyte distribution width (RBC) [Ratio] 12.9 % Invalid Interpretation Code 11.6-14.6 [facility] Work Phone: Erythrocyte distribution width Auto Ratio (RBC) 12.9 % Invalid Interpretation Code 11.6-14.6 [facility] Work Phone: Erythrocytes (RBC) 4.58 10*6/uL Invalid Interpretation Code 4.2-5.4 [facility] Work Phone: Hematocrit (Bld) [Volume fraction] 39.1 % Invalid Interpretation Code 37-47 [facility] Work Phone: Hematocrit (HCT) 39.1 % Invalid Interpretation Code 37-47 [facility] Work Phone: Hemoglobin (Bld) [Mass/Vol] 12.3 g/dL Invalid Interpretation Code 12.0-15.0 [facility] Work Phone: Immature granulocytes/100 WBC (Bld) 0.100 % Invalid Interpretation Code 0.0-0.9 [facility] Work Phone: Lymphocytes 2.85 X10 3/UL Invalid Interpretation Code 0.83-4.51 [facility] Work Phone: Lymphocytes (Bld) [#/Vol] 2.85 X10 3/UL Invalid Interpretation Code 0.83-4.51 [facility] Work Phone: Lymphocytes/100 leukocytes 31.8 % Invalid Interpretation Code 19-41 [facility] Work Phone: Lymphocytes/100 WBC (Bld) 31.8 % Invalid Interpretation Code 19-41 [facility] Work Phone: MCV 85.4 fL Invalid Interpretation Code 81-99 [facility] Work Phone: MCV (RBC) [Entitic vol] 85.4 fL Invalid Interpretation Code 81-99 [facility] Work Phone: Monocytes/100 leukocytes 4.7 % Invalid Interpretation Code 0-10 [facility] Work Phone: Monocytes/100 WBC (Bld) 4.7 % Invalid Interpretation Code 0-10 [facility] Work Phone: neutrophil count, blood 5.5 X10 3/UL Invalid Interpretation Code 2.0-7.7 [facility] Work Phone: Neutrophils/100 WBC (Bld) 61.7 % Invalid Interpretation Code 47-70 [facility] Work Phone: Neutrophils/100 WBC Auto (Bld) 61.7 % Invalid Interpretation Code 47-70 [facility] Work Phone: Platelet mean volume (Bld) [Entitic vol] 9.1 fL Invalid Interpretation Code 6.2-12.0 [facility] Work Phone: Platelets 272 10*3/mm3 Invalid Interpretation Code 150-450 [facility] Work Phone: Platelets (Bld) [#/Vol] 272 10*3/uL Invalid Interpretation Code 150-450 [facility] Work Phone: PMV by Miky 9.1 fL Invalid Interpretation Code 6.2-12.0 [facility] Work Phone: RBC (Bld) [#/Vol] 4.58 10*6/uL Invalid Interpretation Code 4.2-5.4 [facility] Work Phone: RDW SD 40.3 fL Invalid Interpretation Code 35.1-43.9 [facility] Work Phone: red blood cell distribution width, size density 40.3 fL Invalid Interpretation Code 35.1-43.9 [facility] Work Phone: WBC (Bld) [#/Vol] 9.0 10*3/uL Invalid Interpretation Code 4.4-11.0 [facility] Work Phone: WBC (Leukocytes) 9.0 10*3/uL Invalid Interpretation Code 4.4-11.0 [facility] Work Phone: Lab Report: Quantiferon TB-G oldon 07-22-2015 QFT TB GOLD Negative Invalid Interpretation Code Negative [facility] Work Phone: Quantiferon Gold TB blood test for tuberculosis screening Negative Invalid Interpretation Code Negative [facility] Work Phone: External Other: Preferred Me thod of Contacton 07-17-2015 methcontact phone Invalid Interpretation Code [facility] Work Phone: Patient's prefered method of contact phone Invalid Interpretation Code [facility] Work Phone: Office Visit: ?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 Felix Carreon 07-17-2015 Tobacco smoking status Never Invalid Interpretation Code [facility] Work Phone: Tobacco use status [facility] Never smoker Invalid Interpretation Code [facility] Work Phone: Lab Report: (P) Urinalysis, Completeon 04-06-2015 Albumin Ql (U) Negative Invalid Interpretation Code Negative [facility] Work Phone: Bilirubin Ql (U) Negative Invalid Interpretation Code Negative [facility] Work Phone: Clarity (U) Clear Invalid Interpretation Code Clear [facility] Work Phone: Color (U) Straw Invalid Interpretation Code Yellow [facility] Work Phone: Glucose Ql (U) Normal mg/dl Invalid Interpretation Code Normal [facility] Work Phone: Ketones (U) [Mass/Vol] Negative Invalid Interpretation Code Negative [facility] Work Phone: Leukocyte esterase Test strip Ql (U) Negative Invalid Interpretation Code Negative [facility] Work Phone: Occult Blood, urine Negative Invalid Interpretation Code Negative [facility] Work Phone: pH (U) 7.0 [pH] Invalid Interpretation Code 5.0 - 8.0 [facility] Work Phone: Specific gravity Refractometry (U) [Rel density] 1.010 Invalid Interpretation Code 1.002-1.030 [facility] Work Phone: Lab Report: Comprehensive Wi tabolic Profilon 04-06-2015 calculated corrected value of creatinine clearance with body surface area 76.75 mL/min Invalid Interpretation Code [facility] Work Phone: Creatinine 76.75 mL/min Invalid Interpretation Code [facility] Work Phone: Lab Report: ,Serum, hCG Quali.on 04-06-2015 HCG.beta subunit [Moles/Vol] < 1 mIU/mL Invalid Interpretation Code =>Qualitativ e [facility] Work Phone: HCG.beta subunit Qn m[IU]/mL Invalid Interpretation Code =>Qualitativ e [facility] Work Phone: Lab Report: Urinalysis, Comp leteon 04-06-2015 Bacteria LM.HPF (Urine sed) [#/Area] 0 /[HPF] Invalid Interpretation Code None Seen [facility] Work Phone: Epithelial cells LM.HPF (Urine sed) [#/Area] 0-5 SEEN Invalid Interpretation Code 5-10 [facility] Work Phone: Mucus Ql (Urine sed) 0 SEEN Invalid Interpretation Code [facility] Work Phone: RBC LM.HPF (Urine sed) [#/Vol] 0-5 SEEN Invalid Interpretation Code 0-5 [facility] Work Phone: Urinalysis, white blood cells, culture and sensitivity 0 SEEN Invalid Interpretation Code 0-5 [facility] Work Phone: Urine, mucus presence in sediment 0 SEEN Invalid Interpretation Code [facility] Work Phone: WBC (Leukocytes) 0 SEEN Invalid Interpretation Code 0-5 [facility] Work Phone: Replaced Document: (P) Pregn ale,Serum,hCG Quali.on 04-06-2015 Beta HCG ( test) Ql Negative Invalid Interpretation Code 0-9 Nonpreg [facility] Work Phone: HCG.beta subunit ( test) Ql Negative Invalid Interpretation Code 0-9 Nonpreg [facility] Work Phone: Lab Report: Methylmalonic Ac id Bldon 01-21-2015 METHYLM [id number] 282 nmol/L Invalid Interpretation Code 0-378 [facility] Work Phone: methylmalonic acid (MMA), serum 282 nmol/L Invalid Interpretation Code 0-378 [facility] Work Phone: Lab Report: Insulin Levelon 01-18-2015 INSULIN 4333 34.7 u[iU]/mL High 2.6-24.9 [facility] Work Phone: insulin, serum 34.7 u[iU]/mL High 2.6-24.9 [facility] Work Phone: Lab Report: Testosterone, To jaclyn / Freeon 01-18-2015 COMMENT Test not performed Invalid Interpretation Code . [facility] Work Phone: TESTOSTER %FREE 1.73 % Invalid Interpretation Code 0.50-2.80 [facility] Work Phone: Testosterone [Mass/Vol] 21 ng/dL Invalid Interpretation Code 8-48 [facility] Work Phone: Testosterone comments Not performed Invalid Interpretation Code . [facility] Work Phone: Testosterone Free [Mass/Vol] 3.6 pg/mL Invalid Interpretation Code Units converted. See lab report for original value. [facility] Work Phone: testosterone, serum, free as percentage of total serum testosterone 1.73 % Invalid Interpretation Code 0.50-2.80 [facility] Work Phone: Lab Report: Vitamin B12on Cobalamin (Vitamin B12) [Mass/Vol] 519 pg/mL Invalid Interpretation Code 211-911 [facility] Work Phone: Lab Report: Vitamin D,25 Hyd roxyon 01-16-2015 vitamin D 25-hydroxy, serum 46.1 ng/mL Invalid Interpretation Code [facility] Work Phone: Vitamin D 25-OH 46.1 ng/mL Invalid Interpretation Code [facility] Work Phone: Lab Report: Chlamydia PCR (W CH)on 01-15-2015 C. trachomatis DNA EL+probe Ql (U) Negative Invalid Interpretation Code Negative [facility] Work Phone: Chlamydia trachomatis DNA [Presence] in Urine by Probe and target amplification method Negative Invalid Interpretation Code Negative [facility] Work Phone: Lab Report: Folates, (Folic Acid)on 01-15-2015 Folate [Mass/Vol] 33.00 ng/mL High 3.1-17.5 [facility] Work Phone: Lab Report: Homocysteineon 1 Homocysteine [Mass/Vol] 6.2 umol/L Invalid Interpretation Code 3.2-10.7 [facility] Work Phone: Lab Report: Microalb:Creat R atio,Random URon 01-15-2015 ACR (microalbumin/creatini ne) ratio 8.0 MG/G CRE Invalid Interpretation Code <30 mg/g CRE [facility] Work Phone: Albumin DL <= 20 mg/L (U) [Mass/Vol] 1.89 mg/dL Invalid Interpretation Code Units converted. See lab report for original value. [facility] Work Phone: Albumin/Creatinine DL <= 20 mg/L (U) [Ratio] 8.0 MG/G CRE Invalid Interpretation Code <30 mg/g CRE [facility] Work Phone: Creatinine (U) [Mass/Vol] 234.00 mg/dL Invalid Interpretation Code NO RANGE EST. [facility] Work Phone: Replaced Document: (P) Hemog lobin A1con 01-15-2015 HbA1c (Bld) [Mass fraction] 5.4 % Invalid Interpretation Code 4.2-6.[address] [facility] Work Phone: Replaced Document: Ferritino n 01-15-2015 Ferritin [Mass/Vol] 37 ng/mL Invalid Interpretation Code 8-[address] [facility] Work Phone: Replaced Document: Ironon Iron [Mass/Vol] 83 ug/dL Invalid Interpretation Code 50-170 [facility] [email or web address] Work Phone: Replaced Document: Iron Bind ing Capacity,Totalon 01-15-2015 Iron binding capacity [Mass/Vol] 393 ug/dL Invalid Interpretation Code 250-450 [facility] [email or web address] Work Phone: Replaced Document: Lipid Pro fileon 01-15-2015 Cholesterol [Mass/Vol] 206 mg/dL High 200 [facility] Work Phone: Cholesterol in HDL [Mass/Vol] 44 mg/dL Invalid Interpretation Code [facility] [email or web address] Work Phone: Cholesterol in LDL [Mass/Vol] 112 mg/dL Invalid Interpretation Code 0-[address] [facility] Work Phone: Lipoprotein.pre-beta [Mass/Vol] 50 mg/dL High 5-40 [facility] Work Phone: Triglyceride [Mass/Vol] 249 mg/dL High [facility] Work Phone: Microbiology: Ova and Parasi damir 8623on 01-12-2015 OP . Invalid Interpretation Code [facility] Work Phone: ova and parasites identification, stool . Invalid Interpretation Code [facility] Work Phone: Lab Report: Amylaseon 2014 Amylase [Catalytic activity/Vol] 80 U/L Invalid Interpretation Code 25-115 [facility] Work Phone: Lab Report: ,Urineo n 01-09-2015 Beta HCG ( test) Ql (U) Negative Invalid Interpretation Code [facility] Work Phone: Office Visit: Abd Painon Appearance (U) clear Invalid Interpretation Code [facility] Work Phone: Glucose Test strip (U) [Mass/Vol] Negative Invalid Interpretation Code [facility] Work Phone: Nitrite Ql (U) Negative Invalid Interpretation Code [facility] Work Phone: Urobilinogen Ql (U) 0.2 Invalid Interpretation Code [facility] Work Phone: Lab Report: Bedside Glucoseo n 08-21-2014 Glucose [Mass/Vol] 129 mg/dL High 70-110 [facility] Work Phone: Lab Report: CBC W/Diff, Auto matedon 08-21-2014 Absolute Lymphocytes 1.25 X10 3/UL Invalid Interpretation Code 0.83-4.51 [facility] Work Phone: Absolute Neut 11.1 X10 3/UL High 2.0-7.7 [facility] Work Phone: Absolute Neutrophil count 11.1 X10 3/UL High 2.0-7.7 [facility] Work Phone: Lymphocytes 1.25 X10 3/UL Invalid Interpretation Code 0.83-4.51 [facility] Work Phone: Lab Report: D-Dimer Quantita tive (DVT/PE)on 06-08-2014 D-dimer quantitative mcg/mL 0.39 FEU/UG/M Invalid Interpretation Code 0.27-0.[address] [facility] Work Phone: D-DIMER QUANT 0.39 FEU/UG/M Invalid Interpretation Code 0.27-0.49 [facility] Work Phone: Lab Report: Troponin-Ion Troponin I.cardiac [Mass/Vol] ng/mL Invalid Interpretation Code <0.[address] [facility] Work Phone: Troponin I.cardiac mass conc ng/mL Invalid Interpretation Code <0.06 [facility] Work Phone: Office Visiton 01-08-2014 Hemoglobin.gastrointes tinal Ql (Stl) Negative Invalid Interpretation Code [facility] Work Phone: Lab Report: DHEAon 4 DHEA 2332 ng/mL Normal Units converted. See lab report for original value. [facility] Work Phone: DHEA (dehydropiandrosterone ), serum 2332 ng/mL Normal Units converted. See lab report for original value. [facility] Work Phone: Microbiology: CUTon 06-26-19 14 CUT streptococcus isolated. Invalid Interpretation Code [facility] Work Phone: throat culture streptococcus isolated. Invalid Interpretation Code [facility] Work Phone: Culture, urine Bacteria identified Cx Nom (U) Culture exhibits no growth. [facility] Work Phone: Bacteria identified Cx Nom (U) Positive [facility] Work Phone: Gram stain for investigation of transfusion reaction Microscopic observation Gram stain Nom (Unsp spec) [facility] Work Phone: No Panel Information [facility] Vital Signs Date Time Vital Sign Value Performing Clinician Facility 09-22-2024 11:23-0400 Body mass index (BMI) [Ratio] 34.25 kg/m2 Lizet Hale APRN.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 Work Phone: [facility] 09-22-2024 11:23-0400 Body temperature 98.49 [degF] Lizet Swank DESIGNER.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 Work Phone: [facility] 09-22-2024 11:23-0400 Body weight 87.7 kg Lizet Swank DESIGNER.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 Work Phone: [facility] 09-22-2024 11:23-0400 Diastolic blood pressure 93 mm[Hg] Lizet Swank DESIGNER.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 Work Phone: [facility] 09-22-2024 11:23-0400 Heart rate 83 /min Lizet Swank DESIGNER.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 Work Phone: [facility] 09-22-2024 11:23-0400 Respiratory rate 18 /min Lizet Swank DESIGNER.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 Work Phone: [facility] 09-22-2024 11:23-0400 SaO2% (BldA) [Mass fraction] 100 % Lizet Swank DESIGNER.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 Work Phone: [facility] 09-22-2024 11:23-0400 Systolic blood pressure 142 mm[Hg] Lizet Swank DESIGNER.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 Work Phone: [facility] 07-19-2024 03:20-0400 Heart rate 80 /min Dr. Rudy Branch DO Work Phone: [facility] 07-19-2024 03:20-0400 Respiratory rate 16 /min Dr. Rudy Branch DO Work Phone: [facility] 07-19-2024 02:08-0400 Body temperature 98.3 [degF] Dr. Rudy Branch DO Work Phone: [facility] 07-19-2024 02:08-0400 Diastolic blood pressure 100 mm[Hg] Dr. Rudy Branch DO Work Phone: [facility] 07-19-2024 02:08-0400 SaO2% (BldA) [Mass fraction] 100 % Dr. Rudy Branch DO Work Phone: [facility] 07-19-2024 02:08-0400 Systolic blood pressure 140 mm[Hg] Dr. Rudy Branch DO Work Phone: [facility] 07-19-2024 02:05-0400 Body height 160.[address] Rudy Branch DO Work Phone: [facility] 07-19-2024 02:05-0400 Body mass index (BMI) [Ratio] 32.1 kg/m2 Dr. Rudy Branch DO Work Phone: [facility] 07-19-2024 02:05-0400 Body weight 82.[address] Rudy Branch DO Work Phone: [facility] 07-16-2024 21:15-0400 Diastolic blood pressure 82 mm[Hg] Dr. Rudy Branch DO Work Phone: [facility] 07-16-2024 21:15-0400 Heart rate 91 /min Dr. Rudy Branch DO Work Phone: [facility] 07-16-2024 21:15-0400 Respiratory rate 23 /min Dr. Rudy Branch DO Work Phone: [facility] 07-16-2024 21:15-0400 SaO2% (BldA) [Mass fraction] 100 % Dr. Rudy Branch DO Work Phone: [facility] 07-16-2024 21:15-0400 Systolic blood pressure 120 mm[Hg] Dr. Rudy Branch DO Work Phone: [facility] 07-16-2024 20:25-0400 Body temperature 98 [degF] Dr. Rudy Branch DO Work Phone: [facility] 07-16-2024 19:22-0400 Body height 160.[address] Rudy Branch DO Work Phone: [facility] 07-16-2024 19:22-0400 Body mass index (BMI) [Ratio] 33.9 kg/m2 Dr. Rudy Branch DO Work Phone: [facility] 07-16-2024 19:22-0400 Body weight 86.[address] Rudy Branch DO Work Phone: [facility] 07-10-2024 15:04-0400 Body mass index (BMI) [Ratio] 33.44 kg/m2 Nick Chambers DO Work Phone: [facility] 07-10-2024 15:04-0400 Body temperature 98.91 [degF] Nick Chambers DO Work Phone: [facility] 07-10-2024 15:04-0400 Body weight 85.64 kg Nick Chambers DO Work Phone: [facility] 07-10-2024 15:04-0400 Diastolic blood pressure 56 mm[Hg] Nick Chambers DO Work Phone: [facility] 07-10-2024 15:04-0400 Heart rate 72 /min Nick Chambers DO Work Phone: [facility] 07-10-2024 15:04-0400 Respiratory rate 18 /min Nick Chambers DO Work Phone: [facility] 07-10-2024 15:04-0400 SaO2% (BldA) [Mass fraction] 96 % Nick Chambers DO Work Phone: [facility] 07-10-2024 15:04-0400 Systolic blood pressure 114 mm[Hg] Nick Chambers DO Work Phone: [facility] 06-08-2024 15:56-0400 Body temperature 97.6 [degF] Dr. Rudy Branch DO Work Phone: [facility] 06-08-2024 15:56-0400 Diastolic blood pressure 73 mm[Hg] Dr. Rudy Branch DO Work Phone: [facility] 06-08-2024 15:56-0400 Heart rate 78 /min Dr. Rudy Branch DO Work Phone: [facility] 06-08-2024 15:56-0400 Respiratory rate 16 /min Dr. Rudy Branch DO Work Phone: [facility] 06-08-2024 15:56-0400 SaO2% (BldA) [Mass fraction] 100 % Dr. Rudy Branch DO Work Phone: [facility] 06-08-2024 15:56-0400 Systolic blood pressure 133 mm[Hg] Dr. Rudy Branch DO Work Phone: [facility] 06-08-2024 14:50-0400 Body height 160.[address] Rudy Branch DO Work Phone: [facility] 06-08-2024 14:50-0400 Body mass index (BMI) [Ratio] 32.9 kg/m2 Dr. Rudy Branch DO Work Phone: [facility] 06-08-2024 14:50-0400 Body weight 84.[address] Rudy Branch DO Work Phone: [facility] 05-30-2024 22:47-0500 Body temperature 98.3 [degF] Dr. Rudy Branch DO Work Phone: [facility] 05-30-2024 22:47-0500 Diastolic blood pressure 82 mm[Hg] Dr. Rudy Branch DO Work Phone: [facility] 05-30-2024 22:47-0500 Heart rate 96 /min Dr. Rudy Branch DO Work Phone: [facility] 05-30-2024 22:47-0500 Respiratory rate 18 /min Dr. Rudy Branch DO Work Phone: [facility] 05-30-2024 22:47-0500 SaO2% (BldA) [Mass fraction] 98 % Dr. Rudy Branch DO Work Phone: [facility] 05-30-2024 22:47-0500 Systolic blood pressure 125 mm[Hg] Dr. Rudy Branch DO Work Phone: [facility] 05-30-2024 17:14-0500 Body mass index (BMI) [Ratio] 33.3 kg/m2 Dr. Rudy Branch DO Work Phone: [facility] 05-30-2024 17:14-0500 Body weight 85.[address] Rudy Branch DO Work Phone: [facility] 05-29-2024 14:38-0500 Body mass index (BMI) [Ratio] 34 kg/m2 Dr. Rudy Branch DO Work Phone: [facility] 05-29-2024 14:38-0500 Body temperature 97.8 [degF] Dr. Rudy Branch DO Work Phone: [facility] 05-29-2024 14:38-0500 Body weight 87.[address] Rudy Branch DO Work Phone: [facility] 05-29-2024 14:38-0500 Diastolic blood pressure 84 mm[Hg] Dr. Rudy Branch DO Work Phone: [facility] 05-29-2024 14:38-0500 Heart rate 88 /min Dr. Rudy Branch DO Work Phone: [facility] 05-29-2024 14:38-0500 Respiratory rate 16 /min Dr. Rudy Branch DO Work Phone: [facility] 05-29-2024 14:38-0500 SaO2% (BldA) [Mass fraction] 98 % Dr. Rudy Branch DO Work Phone: [facility] 05-29-2024 14:38-0500 Systolic blood pressure 124 mm[Hg] Dr. Rudy Branch DO Work Phone: [facility] 04-27-2024 13:00-0500 Body mass index (BMI) [Ratio] 33.3 kg/m2 Dr. Rudy Branch DO Work Phone: [facility] 04-27-2024 13:00-0500 Body weight 85.[address] Rudy Branch DO Work Phone: [facility] 04-23-2024 23:55-0500 Diastolic Blood Pressure Non-Invasive 81 mm[Hg] DR MONI ALCANTARA MD [facility] 04-23-2024 23:55-0500 Heart rate 74 /min DR MONI ALCANTARA MD [facility] 04-23-2024 23:55-0500 Respiratory rate 16 /min DR MONI ALCANTARA MD [facility] 04-23-2024 23:55-0500 Systolic Blood Pressure Non-Invasive 134 mm[Hg] DR MONI ALCANTARA MD [facility] 04-23-2024 23:15-0500 Body temperature 98.96 [degF] DR MONI ALCANTARA MD [facility] 04-23-2024 23:15-0500 Diastolic Blood Pressure Non-Invasive 84 mm[Hg] DR MONI ALCANTARA MD [facility] 04-23-2024 23:15-0500 Heart rate 78 /min DR MONI ALCANTARA MD [facility] 04-23-2024 23:15-0500 Respiratory rate 16 /min DR MONI ALCANTARA MD [facility] 04-23-2024 23:15-0500 Systolic Blood Pressure Non-Invasive 134 mm[Hg] DR MONI ALCANTARA MD [facility] 04-19-2024 09:12-0500 Body temperature 98.2 [degF] Dr. Rudy Branch DO Work Phone: [facility] 04-19-2024 09:12-0500 Body weight 84.[address] Rudy Branch DO Work Phone: [facility] 04-19-2024 09:12-0500 Diastolic blood pressure 70 mm[Hg] Dr. Rudy Branch DO Work Phone: [facility] 04-19-2024 09:12-0500 Heart rate 77 /min Dr. Rudy Branch DO Work Phone: [facility] 04-19-2024 09:12-0500 Respiratory rate 16 /min Dr. Rudy Branch DO Work Phone: [facility] 04-19-2024 09:12-0500 SaO2% (BldA) [Mass fraction] 100 % Dr. Rudy Branch DO Work Phone: [facility] 04-19-2024 09:12-0500 Systolic blood pressure 116 mm[Hg] Dr. Rudy Branch DO Work Phone: [facility] 04-05-2024 09:46-0500 Body mass index (BMI) [Ratio] 33.3 kg/m2 Dr. Rudy Branch DO Work Phone: [facility] 04-05-2024 09:46-0500 Body temperature 98.9 [degF] Dr. Rudy Branch DO Work Phone: [facility] 04-05-2024 09:46-0500 Body weight 85.[address] Rudy Branch DO Work Phone: [facility] 04-05-2024 09:46-0500 Diastolic blood pressure 82 mm[Hg] Dr. Rudy Branch DO Work Phone: [facility] 04-05-2024 09:46-0500 Heart rate 73 /min Dr. Rudy Branch DO Work Phone: [facility] 04-05-2024 09:46-0500 Respiratory rate 16 /min Dr. Rudy Branch DO Work Phone: [facility] 04-05-2024 09:46-0500 SaO2% (BldA) [Mass fraction] 98 % Dr. Rudy Branch DO Work Phone: [facility] 04-05-2024 09:46-0500 Systolic blood pressure 122 mm[Hg] Dr. Rudy Branch DO Work Phone: [facility] 04-04-2024 13:07-0500 Body mass index (BMI) [Ratio] 33.3 kg/m2 Dr. Rudy Branch DO Work Phone: [facility] 04-04-2024 13:07-0500 Body weight 85.[address] Rudy Branch DO Work Phone: [facility] 04-04-2024 13:07-0500 Diastolic blood pressure 79 mm[Hg] Dr. Rudy Branch DO Work Phone: [facility] 04-04-2024 13:07-0500 Heart rate 87 /min Dr. Rudy Branch DO Work Phone: [facility] 04-04-2024 13:07-0500 Respiratory rate 16 /min Dr. Rudy Branch DO Work Phone: [facility] 04-04-2024 13:07-0500 Systolic blood pressure 117 mm[Hg] Dr. Rudy Branch DO Work Phone: [facility] 01-17-2024 13:09-0400 Body height 160 cm Nick Mcmanus DO Work Phone: [facility] 01-17-2024 13:09-0400 Body mass index (BMI) [Ratio] 34.08 kg/m2 Nick Mcmanus DO Work Phone: [facility] 01-17-2024 13:09-0400 Body temperature 98.1 [degF] Nick Chambers DO Work Phone: [facility] 01-17-2024 13:09-0400 Body weight 87.27 kg Nick Chambers DO Work Phone: [facility] 01-17-2024 13:09-0400 Diastolic blood pressure 69 mm[Hg] Nick Chambers DO Work Phone: [facility] 01-17-2024 13:09-0400 Heart rate 69 /min Nick Chambers DO Work Phone: [facility] 01-17-2024 13:09-0400 Respiratory rate 16 /min Nick Chambers DO Work Phone: [facility] 01-17-2024 13:09-0400 SaO2% (BldA) [Mass fraction] 96 % Nick Chambers DO Work Phone: [facility] 01-17-2024 13:09-0400 Systolic blood pressure 111 mm[Hg] Nick Chambers DO Work Phone: [facility] 11-05-2023 14:49-0400 Body mass index (BMI) [Ratio] 34.05 kg/m2 Canelo Pina APRN-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 Work Phone: [facility] 11-05-2023 14:49-0400 Body temperature 98.2 [degF] Canelo Pina APRN-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 Work Phone: [facility] 11-05-2023 14:49-0400 Body weight 87.2 kg Canelo Pina APRN-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 Work Phone: [facility] 11-05-2023 14:49-0400 Diastolic blood pressure 76 mm[Hg] Canelo Pina APRN-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 Work Phone: [facility] 11-05-2023 14:49-0400 Heart rate 69 /min Canelo Pina DESIGNER-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 Work Phone: [facility] 11-05-2023 14:49-0400 Respiratory rate 16 /min Canelo Pina DESIGNER-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 Work Phone: [facility] 11-05-2023 14:49-0400 SaO2% (BldA) [Mass fraction] 99 % Canelo Pina DESIGNER-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 Work Phone: [facility] 11-05-2023 14:49-0400 Systolic blood pressure 114 mm[Hg] Canelo Pina DESIGNER-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 Work Phone: [facility] 11-03-2023 13:07-0400 Body height 157.5 cm ESTELLA MILLER MD [facility] 11-03-2023 13:07-0400 Body temperature 98.96 [degF] ESTELLA MILLER MD [facility] 11-03-2023 13:07-0400 Body weight 86.4 kg ESTELLA MILLER MD [facility] 11-03-2023 13:07-0400 Diastolic Blood Pressure Non-Invasive 72 mm[Hg] ESTELLA MILLER MD [facility] 11-03-2023 13:07-0400 Heart rate 84 /min ESTELLA MILLER MD [facility] 11-03-2023 13:07-0400 Respiratory rate 18 /min ESTELLA MILLER MD [facility] 11-03-2023 13:07-0400 Systolic Blood Pressure Non-Invasive 130 mm[Hg] ESTELLA MILLER MD [facility] 07-22-2023 08:31-0400 Body height 160 cm Brenda Berg MD Work Phone: [facility] 07-22-2023 08:31-0400 Body mass index (BMI) [Ratio] 33.66 kg/m2 Brenda Berg MD Work Phone: [facility] 07-22-2023 08:31-0400 Body temperature 97.9 [degF] Brenda Berg MD Work Phone: [facility] 07-22-2023 08:31-0400 Body weight 86.18 kg Brenda Berg MD Work Phone: [facility] 07-22-2023 08:31-0400 Diastolic blood pressure 65 mm[Hg] Brenda Berg MD Work Phone: [facility] 07-22-2023 08:31-0400 Heart rate 80 /min Brenda Berg MD Work Phone: [facility] 07-22-2023 08:31-0400 Respiratory rate 14 /min Brenda Berg MD Work Phone: [facility] 07-22-2023 08:31-0400 Systolic blood pressure 114 mm[Hg] Brenda Berg MD Work Phone: [facility] 07-15-2023 09:55-0400 Body temperature 98.1 [degF] Dr. Rudy Branch Work Phone: [facility] 07-15-2023 09:55-0400 Diastolic blood pressure 71 mm[Hg] Dr. Rudy Branch Work Phone: [facility] 07-15-2023 09:55-0400 Heart rate 76 /min Dr. Rudy Branch Work Phone: [facility] 07-15-2023 09:55-0400 Respiratory rate 16 /min Dr. Rudy Branch Work Phone: [facility] 07-15-2023 09:55-0400 SaO2% (BldA) [Mass fraction] 100 % Dr. Rudy Branch Work Phone: [facility] 07-15-2023 09:55-0400 Systolic blood pressure 108 mm[Hg] Dr. Rudy Branch Work Phone: [facility] 07-15-2023 08:02-0400 Body height 157.[address] Rudy Branch Work Phone: [facility] 07-15-2023 08:02-0400 Body mass index (BMI) [Ratio] 34.7 kg/m2 Dr. Rudy Branch Work Phone: [facility] 07-15-2023 08:02-0400 Body weight 86.[address] Rudy Branch Work Phone: [facility] 07-08-2023 09:46-0400 Heart rate 82 /min Zainab Duckworth MD Work Phone: [facility] 07-08-2023 09:46-0400 Respiratory rate 16 /min Zainab Duckworth MD Work Phone: [facility] 07-08-2023 09:46-0400 SaO2% (BldA) [Mass fraction] 98 % Zainab Duckworth MD Work Phone: [facility] 06-28-2023 13:12-0400 Body height 157.[address] Rudy Branch Work Phone: [facility] 06-28-2023 13:12-0400 Body mass index (BMI) [Ratio] 35.3 kg/m2 Dr. Rudy Branch Work Phone: [facility] 06-28-2023 13:12-0400 Body weight 87.[address] Rudy Branch Work Phone: [facility] 06-28-2023 13:12-0400 Diastolic blood pressure 73 mm[Hg] Dr. Rudy Branch Work Phone: [facility] 06-28-2023 13:12-0400 Heart rate 84 /min Dr. Rudy Branch Work Phone: [facility] 06-28-2023 13:12-0400 Respiratory rate 16 /min Dr. Rudy Branch Work Phone: [facility] 06-28-2023 13:12-0400 Systolic blood pressure 111 mm[Hg] Dr. Rudy Branch Work Phone: [facility] 06-17-2023 20:38-0400 Body temperature 98.2 [degF] Dr. Rudy Branch Work Phone: [facility] 06-17-2023 20:38-0400 Diastolic blood pressure 64 mm[Hg] Dr. Rudy Branch Work Phone: [facility] 06-17-2023 20:38-0400 Heart rate 71 /min Dr. Rudy Branch Work Phone: [facility] 06-17-2023 20:38-0400 Respiratory rate 18 /min Dr. Rudy Branch Work Phone: [facility] 06-17-2023 20:38-0400 SaO2% (BldA) [Mass fraction] 100 % Dr. Rudy Branch Work Phone: [facility] 06-17-2023 20:38-0400 Systolic blood pressure 116 mm[Hg] Dr. Rudy Branch Work Phone: [facility] 06-17-2023 15:23-0400 Body height 157.[address] Rudy Branch Work Phone: [facility] 06-17-2023 15:23-0400 Body mass index (BMI) [Ratio] 34.7 kg/m2 Dr. Rudy Branch Work Phone: [facility] 06-17-2023 15:23-0400 Body weight 86.[address] Rudy Branch Work Phone: [facility] 04-15-2023 10:04-0500 Body height 160 cm Rossy OLSON Work Phone: [facility] 04-15-2023 10:04-0500 Body mass index (BMI) [Ratio] 32.77 kg/m2 Rossy Lainez DESIGNER-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 Work Phone: [facility] 04-15-2023 10:04-0500 Body weight 83.92 kg Rossy Lainez DESIGNER-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 Work Phone: [facility] 04-15-2023 10:04-0500 Diastolic blood pressure 87 mm[Hg] Rossy Lainez DESIGNER-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 Work Phone: [facility] 04-15-2023 10:04-0500 Heart rate 89 /min Rossy Lainez DESIGNER-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 Work Phone: [facility] 04-15-2023 10:04-0500 Systolic blood pressure 124 mm[Hg] Rossy Lainez DESIGNER-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 Work Phone: [facility] 04-06-2023 10:24-0500 Body mass index (BMI) [Ratio] 34.84 kg/m2 Canelo Pina DESIGNER-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 Work Phone: [facility] 04-06-2023 10:24-0500 Body temperature 96.8 [degF] Canelo Pina DESIGNER-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 Work Phone: [facility] 04-06-2023 10:24-0500 Body weight 86.4 kg Canelo Pina DESIGNER-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 Work Phone: [facility] 04-06-2023 10:24-0500 Diastolic blood pressure 85 mm[Hg] Canelo Pina DESIGNER-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 Work Phone: [facility] 04-06-2023 10:24-0500 Heart rate 82 /min Canelo Pina DESIGNER-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 Work Phone: [facility] 04-06-2023 10:24-0500 Respiratory rate 16 /min Canelo Pina DESIGNER-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 Work Phone: [facility] 04-06-2023 10:24-0500 SaO2% (BldA) [Mass fraction] 98 % Canelo Pina DESIGNER-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 Work Phone: [facility] 04-06-2023 10:24-0500 Systolic blood pressure 133 mm[Hg] Canelo Pina DESIGNER-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 Work Phone: [facility] 03-25-2023 22:32-0500 Body height 157.5 cm NIDAL CHOUJAA DO [facility] 03-25-2023 22:32-0500 Body temperature 98.78 [degF] NIDAL CHOUJAA DO [facility] 03-25-2023 22:32-0500 Body weight 84.1 kg NIDAL CHOUJAA DO [facility] 03-25-2023 22:32-0500 Heart rate 93 /min NIDAL CHOUJAA DO [facility] 03-25-2023 22:32-0500 Respiratory rate 22 /min NIDAL CHOUJAA DO [facility] 03-14-2023 00:26-0500 Body height 157.[address] FARIDEH DAVIS MD [facility] 03-14-2023 00:26-0500 Body temperature 97.88 [degF] DR FARIDEH DAVIS MD [facility] 03-14-2023 00:26-0500 Body weight 84.[address] FARIDEH DAVIS MD [facility] 03-14-2023 00:26-0500 Diastolic Blood Pressure Non-Invasive 86 mm[Hg] DR FARIDEH DAVIS MD [facility] 03-14-2023 00:26-0500 Heart rate 104 /min DR FARIDEH DAVIS MD [facility] 03-14-2023 00:26-0500 Respiratory rate 20 /min DR FARIDEH DAVIS MD [facility] 03-14-2023 00:26-0500 Systolic Blood Pressure Non-Invasive 142 mm[Hg] DR FARIDEH DAVIS MD [facility] 03-13-2023 10:53-0500 Body mass index (BMI) [Ratio] 34 kg/m2 Dr. Rudy Branch Work Phone: [facility] 03-13-2023 10:53-0500 Body weight 83.[address] Rudy Branch Work Phone: [facility] 03-13-2023 10:53-0500 Heart rate 107 /min Dr. Rudy Branch Work Phone: [facility] 03-13-2023 10:53-0500 Respiratory rate 20 /min Dr. Rudy Branch Work Phone: [facility] 03-13-2023 10:53-0500 SaO2% (BldA) [Mass fraction] 98 % Dr. Rudy Branch Work Phone: [facility] 03-13-2023 10:38-0500 Body height 157.[address] Rudy Branch Work Phone: [facility] 03-13-2023 10:38-0500 Body temperature 98 [degF] Dr. Rudy Branch Work Phone: [facility] 03-13-2023 10:38-0500 Diastolic blood pressure 83 mm[Hg] Dr. Rudy Branch Work Phone: [facility] 03-13-2023 10:38-0500 Systolic blood pressure 136 mm[Hg] Dr. Rudy Branch Work Phone: [facility] 03-12-2023 11:11-0500 Body temperature 99.5 [degF] ENRIKE MARIE MD [facility] 03-12-2023 11:11-0500 Heart rate 91 /min ENRIKE MARIE MD [facility] 03-12-2023 11:11-0500 Respiratory rate 20 /min ENRIKE MARIE MD [facility] 03-12-2023 09:48-0500 Body height 157.5 cm ENRIKE MARIE MD [facility] 03-12-2023 09:48-0500 Body temperature 100.94 [degF] ENRIKE MARIE MD [facility] 03-12-2023 09:48-0500 Body weight 84.1 kg ENRIKE MARIE MD [facility] 03-12-2023 09:48-0500 Diastolic Blood Pressure Non-Invasive 88 mm[Hg] ENRIKE MARIE MD [facility] 03-12-2023 09:48-0500 Heart rate 122 /min ENRIKE MARIE MD [facility] 03-12-2023 09:48-0500 Respiratory rate 20 /min ENRIKE MARIE MD [facility] 03-12-2023 09:48-0500 Systolic Blood Pressure Non-Invasive 141 mm[Hg] ENRIKE MARIE MD [facility] 03-01-2023 12:27-0500 Body temperature 98.4 [degF] Dr. Rudy Branch Work Phone: [facility] 03-01-2023 12:27-0500 Diastolic blood pressure 86 mm[Hg] Dr. Rudy Branch Work Phone: [facility] 03-01-2023 12:27-0500 Heart rate 78 /min Dr. Rudy Branch Work Phone: [facility] 03-01-2023 12:27-0500 Respiratory rate 12 /min Dr. Rudy Branch Work Phone: [facility] 03-01-2023 12:27-0500 SaO2% (BldA) [Mass fraction] 97 % Dr. Rudy Branch Work Phone: [facility] 03-01-2023 12:27-0500 Systolic blood pressure 146 mm[Hg] Dr. Rudy Branch Work Phone: [facility] 02-25-2023 10:38-0500 Body weight 85.2 kg Serjio Thompson MD Work Phone: [facility] 02-25-2023 10:38-0500 Diastolic blood pressure 78 mm[Hg] Serjio Thompson MD Work Phone: [facility] 02-25-2023 10:38-0500 Heart rate 84 /min Serjio Thompson MD Work Phone: [facility] 02-25-2023 10:38-0500 Respiratory rate 16 /min Serjio Thompson MD Work Phone: [facility] 02-25-2023 10:38-0500 SaO2% (BldA) [Mass fraction] 97 % Serjio Thompson MD Work Phone: [facility] 02-25-2023 10:38-0500 Systolic blood pressure 115 mm[Hg] Serjio Thompson MD Work Phone: [facility] 02-09-2023 14:11-0500 Body temperature 98.9 [degF] Dr. Rudy Branch Work Phone: [facility] 02-09-2023 14:11-0500 Body weight 85.[address] Rudy Branch Work Phone: [facility] 02-09-2023 14:11-0500 Diastolic blood pressure 69 mm[Hg] Dr. Rudy Branch Work Phone: [facility] 02-09-2023 14:11-0500 Heart rate 72 /min Dr. Rudy Branch Work Phone: [facility] 02-09-2023 14:11-0500 Respiratory rate 16 /min Dr. Rudy Branch Work Phone: [facility] 02-09-2023 14:11-0500 Systolic blood pressure 113 mm[Hg] Dr. Rudy Branch Work Phone: [facility] 01-26-2023 11:26-0400 Body height 160.[address] Rudy Branch Work Phone: [facility] 01-26-2023 11:26-0400 Body mass index (BMI) [Ratio] 32.8 kg/m2 Dr. Rudy Branch Work Phone: [facility] 01-26-2023 11:26-0400 Body weight 83.[address] Rudy Branch Work Phone: [facility] 12-31-2022 14:26-0400 Body temperature 98.2 [degF] Liliana Lim APRN.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 Work Phone: [facility] 12-31-2022 14:26-0400 Diastolic blood pressure 70 mm[Hg] Liliana Lim APRN.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 Work Phone: [facility] 12-31-2022 14:26-0400 Heart rate 68 /min Liliana Lim APRN.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 Work Phone: [facility] 12-31-2022 14:26-0400 Respiratory rate 16 /min Liliana Lim APRN.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 Work Phone: [facility] 12-31-2022 14:26-0400 SaO2% (BldA) [Mass fraction] 97 % Liliana Lim APRN.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 Work Phone: [facility] 12-31-2022 14:26-0400 Systolic blood pressure 122 mm[Hg] Liliana Lim APRN.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 Work Phone: [facility] 12-16-2022 09:17-0400 Body height 160.[address] Rudy Branch Work Phone: [facility] 12-16-2022 09:17-0400 Body mass index (BMI) [Ratio] 32.8 kg/m2 Dr. Rudy Branch Work Phone: [facility] 12-16-2022 09:17-0400 Body weight 83.[address] Rudy Branch Work Phone: [facility] 12-11-2022 16:15-0400 Blood Pressure Location POLO PERRY MD [facility] 12-11-2022 16:15-0400 Blood Pressure Method POLO PERRY MD [facility] 12-11-2022 16:15-0400 Diastolic Blood Pressure Non-Invasive 66 1 POLO PERRY MD [facility] 12-11-2022 16:15-0400 Heart rate 79 /min POLO PERRY MD [facility] 12-11-2022 16:15-0400 Reason For Taking VItal Signs POLO PERRY MD [facility] 12-11-2022 16:15-0400 Respiratory rate 18 /min POLO PERRY MD [facility] 12-11-2022 16:15-0400 Systolic Blood Pressure Non-Invasive 114 1 POLO PERRY MD [facility] 12-11-2022 15:41-0400 Blood Pressure Location POLO PERRY MD [facility] 12-11-2022 15:41-0400 Blood Pressure Method POLO PERRY MD [facility] 12-11-2022 15:41-0400 Body temperature 98.24 [degF] POLO PERRY MD [facility] 12-11-2022 15:41-0400 Diastolic Blood Pressure Non-Invasive 75 1 POLO PERRY MD [facility] 12-11-2022 15:41-0400 Heart rate 99 /min POLO PERRY MD [facility] 12-11-2022 15:41-0400 Respiratory rate 20 /min POLO PERRY MD [facility] 12-11-2022 15:41-0400 Systolic Blood Pressure Non-Invasive 124 1 POLO PERRY MD [facility] 12-09-2022 15:30-0400 Body height 160.02 cm Rudy Branch Work Phone: [facility]Qtwdruiv-Owkgybnd 1500 Work Phone: 12-09-2022 15:30-0400 Body mass index (BMI) [Ratio] 33.18 kg/m2 Rudy Branch Work Phone: PP-Notoichq-Vhypqprl 1500 Work Phone: 12-09-2022 15:30-0400 Body surface area Derived from formula 1.88 m2 Rudy Branch Work Phone: EH-Mwzexwsy-Jmdythzl 1500 Work Phone: 12-09-2022 15:30-0400 Body temperature 98.2 [degF] Rudy Branch Work Phone: VF-Znzujlfz-Kswttogl 1500 Work Phone: 12-09-2022 15:30-0400 Body weight 84.96 kg Rudy Herediautzman Work Phone: IT-Bjlnkadh-Zerysono 1500 Work Phone: 12-09-2022 15:30-0400 Diastolic blood pressure 77 mm[Hg] Rudy Herediautzman Work Phone: KO-Midbeipm-Bfblckzh 1500 Work Phone: 12-09-2022 15:30-0400 Heart rate 72 /min Rudy Herrera Jose Carlos Work Phone: MN-Jxmaymrc-Yefxmahl 1500 Work Phone: 12-09-2022 15:30-0400 Respiratory rate 19 /min Rudy Herediautzman Work Phone: XG-Vekofxrv-Bomygjxy 1500 Work Phone: 12-09-2022 15:30-0400 SaO2% (BldA) [Mass fraction] 98 % Rudy Herediautzman Work Phone: XU-Gbrzmzlt-Zauwamsm 1500 Work Phone: 12-09-2022 15:30-0400 Systolic blood pressure 114 mm[Hg] Rudy Branch Work Phone: LJ-Tekjdsfw-Qnmwkccp 1500 Work Phone: 12-01-2022 15:54-0400 Diastolic Blood Pressure Non-Invasive 77 1 ENRIKE MARIE MD [facility] 12-01-2022 15:54-0400 Heart rate 79 /min ENRIKE MARIE MD [facility] 12-01-2022 15:54-0400 Reason For Taking VItal Signs ENRIKE MARIE MD [facility] 12-01-2022 15:54-0400 Respiratory rate 16 /min ENRIKE MARIE MD [facility] 12-01-2022 15:54-0400 Systolic Blood Pressure Non-Invasive 122 1 ENRIKE MARIE MD [facility] 12-01-2022 15:10-0400 Diastolic Blood Pressure Non-Invasive 65 1 ENRIKE MARIE MD [facility] 12-01-2022 15:10-0400 Heart rate 91 /min ENRIKE MARIE MD [facility] 12-01-2022 15:10-0400 Reason For Taking VItal Signs ENRIKE MARIE MD [facility] 12-01-2022 15:10-0400 Respiratory rate 16 /min ENRIKE MARIE MD [facility] 12-01-2022 15:10-0400 Systolic Blood Pressure Non-Invasive 134 1 ENRIKE MARIE MD [facility] 12-01-2022 13:58-0400 Body temperature 98.24 [degF] ENRIKE MARIE MD [facility] 12-01-2022 13:58-0400 Diastolic Blood Pressure Non-Invasive 82 1 ENRIKE MARIE MD [facility] 12-01-2022 13:58-0400 Heart rate 78 /min ENRIKE MARIE MD [facility] 12-01-2022 13:58-0400 Respiratory rate 16 /min ENRIKE MARIE MD [facility] 12-01-2022 13:58-0400 Systolic Blood Pressure Non-Invasive 125 1 ENRIKE MARIE MD [facility] 11-14-2022 14:30-0400 Body temperature 98.49 [degF] Adriane Jennifer DESIGNER.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 Work Phone: [facility] 11-14-2022 14:30-0400 Body weight 83.92 kg Adriane Jennifer DESIGNER.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 Work Phone: [facility] 11-14-2022 14:30-0400 Diastolic blood pressure 67 mm[Hg] Adriane Jennifer DESIGNER.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 Work Phone: [facility] 11-14-2022 14:30-0400 Heart rate 70 /min Adriane Benoiter DESIGNER.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 Work Phone: [facility] 11-14-2022 14:30-0400 Respiratory rate 18 /min Adriane Jennifer DESIGNER.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 Work Phone: [facility] 11-14-2022 14:30-0400 SaO2% (BldA) [Mass fraction] 99 % Adriane Jennifer DESIGNER.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 Work Phone: [facility] 11-14-2022 14:30-0400 Systolic blood pressure 100 mm[Hg] Adriane Jennifer DESIGNER.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 Work Phone: [facility] 07-31-2022 13:59-0400 Body height 160.[address] Rudy Branch Work Phone: [facility] 07-31-2022 13:59-0400 Body mass index (BMI) [Ratio] 32.9 kg/m2 Dr. Rudy Branch Work Phone: [facility] 07-31-2022 13:59-0400 Body temperature 96.1 [degF] Dr. Rudy Branch Work Phone: [facility] 07-31-2022 13:59-0400 Body weight 84.[address] Rudy Branch Work Phone: [facility] 07-31-2022 13:59-0400 Diastolic blood pressure 78 mm[Hg] Dr. Rudy Branch Work Phone: [facility] 07-31-2022 13:59-0400 Heart rate 84 /min Dr. Rudy Branch Work Phone: [facility] 07-31-2022 13:59-0400 Respiratory rate 18 /min Dr. Rudy Branch Work Phone: [facility] 07-31-2022 13:59-0400 SaO2% (BldA) [Mass fraction] 100 % Dr. Rudy Branch Work Phone: [facility] 07-31-2022 13:59-0400 Systolic blood pressure 119 mm[Hg] Dr. Rudy Branch Work Phone: [facility] 05-27-2022 13:52-0500 Body height 160.[address] Rudy Branch Work Phone: [facility] 05-27-2022 13:52-0500 Body mass index (BMI) [Ratio] 32.6 kg/m2 Dr. Rudy Branch Work Phone: [facility] 05-27-2022 13:52-0500 Body weight 83.[address] Rudy Branch Work Phone: [facility] 05-27-2022 13:52-0500 Diastolic blood pressure 86 mm[Hg] Dr. Rudy Branch Work Phone: [facility] 05-27-2022 13:52-0500 Systolic blood pressure 114 mm[Hg] Dr. Rudy Branch Work Phone: [facility] 05-25-2022 14:36-0500 Body mass index (BMI) [Ratio] 31.4 kg/m2 Dr. Rudy Branch Work Phone: [facility] 05-25-2022 14:36-0500 Body weight 80.[address] Rudy Branch Work Phone: [facility] 05-25-2022 14:36-0500 Diastolic blood pressure 66 mm[Hg] Dr. Rudy Branch Work Phone: [facility] 05-25-2022 14:36-0500 Systolic blood pressure 114 mm[Hg] Dr. Rudy Branch Work Phone: [facility] 05-04-2022 14:16-0500 Body height 157.5 cm Wilmar Davis MD Work Phone: [facility] 05-04-2022 14:16-0500 Body mass index (BMI) [Ratio] 33.47 kg/m2 Wilmar Davis MD Work Phone: [facility] 05-04-2022 14:16-0500 Body weight 83.01 kg Wilmar Davis MD Work Phone: [facility] 05-04-2022 14:16-0500 Diastolic blood pressure 78 mm[Hg] Wilmar Davis MD Work Phone: [facility] 05-04-2022 14:16-0500 Heart rate 70 /min Wilmar Davis MD Work Phone: [facility] 05-04-2022 14:16-0500 Systolic blood pressure 116 mm[Hg] Wilmar Davis MD Work Phone: [facility] 04-25-2022 18:12-0500 Respiratory rate 18 /min Dr. Rudy Branch Work Phone: [facility] 04-25-2022 17:54-0500 Diastolic blood pressure 77 mm[Hg] Dr. Rudy Branch Work Phone: [facility] 04-25-2022 17:54-0500 Heart rate 74 /min Dr. Rudy Branch Work Phone: [facility] 04-25-2022 17:54-0500 SaO2% (BldA) [Mass fraction] 99 % Dr. Rudy Branch Work Phone: [facility] 04-25-2022 17:54-0500 Systolic blood pressure 126 mm[Hg] Dr. Rudy Branch Work Phone: [facility] 04-25-2022 16:15-0500 Body temperature 98.8 [degF] Dr. Rudy Branch Work Phone: [facility] 04-25-2022 15:24-0500 Body height 160.[address] Rudy Branch Work Phone: [facility] 04-25-2022 15:24-0500 Body mass index (BMI) [Ratio] 32.9 kg/m2 Dr. Rudy Branch Work Phone: [facility] 04-25-2022 15:24-0500 Body weight 84.[address] Rudy Branch Work Phone: [facility] 04-10-2022 14:28-0500 Body mass index (BMI) [Ratio] 32.8 kg/m2 Dr. Rudy Branch Work Phone: [facility] 04-10-2022 14:28-0500 Body weight 83.[address] Rudy Branch Work Phone: [facility] 04-10-2022 14:28-0500 Diastolic blood pressure 72 mm[Hg] Dr. Rudy Branch Work Phone: [facility] 04-10-2022 14:28-0500 Systolic blood pressure 120 mm[Hg] Dr. Rudy Branch Work Phone: [facility] 04-07-2022 14:11-0500 Body height 158.8 cm Kellen Mayorga MD Work Phone: [facility] 04-07-2022 14:11-0500 Body temperature 98.2 [degF] Kellen Mayorga MD Work Phone: [facility] 04-07-2022 14:11-0500 Body weight 83.28 kg Kellen Myaorga MD Work Phone: [facility] 04-07-2022 14:11-0500 Diastolic blood pressure 72 mm[Hg] Kellen Mayorga MD Work Phone: [facility] 04-07-2022 14:11-0500 Heart rate 84 /min Kellen Mayorga MD Work Phone: [facility] 04-07-2022 14:11-0500 Systolic blood pressure 121 mm[Hg] Kellen Mayorga MD Work Phone: [facility] 03-06-2022 14:00-0500 Body temperature 98 [degF] Dr. Rudy Branch Work Phone: [facility] 03-06-2022 14:00-0500 Diastolic blood pressure 77 mm[Hg] Dr. Rudy Branch Work Phone: [facility] 03-06-2022 14:00-0500 Heart rate 72 /min Dr. Rudy Branch Work Phone: [facility] 03-06-2022 14:00-0500 Respiratory rate 14 /min Dr. Rudy Branch Work Phone: [facility] 03-06-2022 14:00-0500 SaO2% (BldA) [Mass fraction] 99 % Dr. Rudy Branch Work Phone: [facility] 03-06-2022 14:00-0500 Systolic blood pressure 133 mm[Hg] Dr. Rudy Branch Work Phone: [facility] 03-06-2022 12:13-0500 Body height 160.[address] Rudy Branch Work Phone: [facility] Work Phone: 03-06-2022 12:13-0500 Body mass index (BMI) [Ratio] 32.8 kg/m2 Dr. Rudy Branch Work Phone: [facility] 03-06-2022 12:13-0500 Body weight [address] Rudy Branch Work Phone: [facility] 01-26-2022 12:03-0400 Body height 160 cm Hellensharon Thomas DO Work Phone: [facility] 01-26-2022 12:03-0400 Body weight 84.82 kg Hellensharon Thomas DO Work Phone: [facility] 01-26-2022 12:03-0400 Diastolic blood pressure 71 mm[Hg] Hellensharon Thomas DO Work Phone: [facility] 01-26-2022 12:03-0400 Systolic blood pressure 117 mm[Hg] Hellensharon Thomas DO Work Phone: [facility] 12-03-2021 23:43-0400 Diastolic blood pressure 89 mm[Hg] Dr. Rudy Branch Work Phone: [facility] Work Phone: 12-03-2021 23:43-0400 Heart rate 75 /min Dr. Rudy Branch Work Phone: [facility] Work Phone: 12-03-2021 23:43-0400 Respiratory rate 16 /min Dr. Rudy Branch Work Phone: [facility] Work Phone: 12-03-2021 23:43-0400 SaO2% (BldA) [Mass fraction] 97 % Dr. Rudy Branch Work Phone: [facility] Work Phone: 12-03-2021 23:43-0400 Systolic blood pressure 124 mm[Hg] Dr. Rudy Branch Work Phone: [facility] Work Phone: 12-03-2021 18:04-0400 Body height 157.[address] Rudy Branch Work Phone: [facility] Work Phone: 12-03-2021 18:04-0400 Body mass index (BMI) [Ratio] 34.2 kg/m2 Dr. Rudy Branch Work Phone: [facility] Work Phone: 12-03-2021 18:04-0400 Body temperature 98.2 [degF] Dr. Rudy Branch Work Phone: [facility] Work Phone: 12-03-2021 18:04-0400 Body weight 84.[address] Rudy Branch Work Phone: [facility] Work Phone: 11-20-2021 15:26-0400 Body mass index (BMI) [Ratio] 35.8 kg/m2 Dr. Rudy Branch Work Phone: [facility] Work Phone: 11-20-2021 15:26-0400 Body weight 88.[address] Rudy Branch Work Phone: [facility] Work Phone: 11-20-2021 15:26-0400 Diastolic blood pressure 78 mm[Hg] Dr. Rudy Branch Work Phone: [facility] Work Phone: 11-20-2021 15:26-0400 Heart rate 73 /min Dr. Rudy Branch Work Phone: [facility] Work Phone: 11-20-2021 15:26-0400 SaO2% (BldA) [Mass fraction] 97 % Dr. Rudy Branch Work Phone: [facility] Work Phone: 11-20-2021 15:26-0400 Systolic blood pressure 123 mm[Hg] Dr. Rudy Branch Work Phone: [facility] Work Phone: 11-10-2021 13:35-0400 Body mass index (BMI) [Ratio] 34.4 kg/m2 Dr. Rudy Branch Work Phone: [facility] Work Phone: 11-10-2021 13:35-0400 Body weight 85.[address] Rudy Branch Work Phone: [facility] Work Phone: 11-10-2021 13:35-0400 Diastolic blood pressure 73 mm[Hg] Dr. Rudy Branch Work Phone: [facility] Work Phone: 11-10-2021 13:35-0400 Heart rate 79 /min Dr. Rudy Branch Work Phone: [facility] Work Phone: 11-10-2021 13:35-0400 Respiratory rate 18 /min Dr. Rudy Branch Work Phone: [facility] Work Phone: 11-10-2021 13:35-0400 SaO2% (BldA) [Mass fraction] 99 % Dr. Rudy Branch Work Phone: [facility] Work Phone: 11-10-2021 13:35-0400 Systolic blood pressure 116 mm[Hg] Dr. Rudy Branch Work Phone: [facility] Work Phone: 10-10-2021 11:13-0400 Body height 157.5 cm Harley Alvarado DO Work Phone: [facility] 10-10-2021 11:13-0400 Body temperature 98.49 [degF] Harley Alvarado DO Work Phone: [facility] 10-10-2021 11:13-0400 Body weight 85.28 kg Harley Alvarado DO Work Phone: [facility] 10-10-2021 11:13-0400 Diastolic blood pressure 75 mm[Hg] Harley Christiano DO Work Phone: [facility] 10-10-2021 11:13-0400 Heart rate 65 /min Harley Christiano DO Work Phone: [facility] 10-10-2021 11:13-0400 Respiratory rate 16 /min Harley Christiano DO Work Phone: [facility] 10-10-2021 11:13-0400 SaO2% (BldA) [Mass fraction] 100 % Harley Christiano DO Work Phone: [facility] 10-10-2021 11:13-0400 Systolic blood pressure 132 mm[Hg] Harley Christiano DO Work Phone: [facility] 10-02-2021 09:53-0400 Body height 157.5 cm Karen Doshi MD Work Phone: [facility] 10-02-2021 09:53-0400 Body temperature 97.39 [degF] Karen Doshi MD Work Phone: [facility] 10-02-2021 09:53-0400 Body weight 85.28 kg Karen Doshi MD Work Phone: [facility] 10-02-2021 09:53-0400 Diastolic blood pressure 66 mm[Hg] Karen Doshi MD Work Phone: [facility] 10-02-2021 09:53-0400 Heart rate 69 /min Karen Doshi MD Work Phone: [facility] 10-02-2021 09:53-0400 Respiratory rate 22 /min Karen Doshi MD Work Phone: [facility] 10-02-2021 09:53-0400 SaO2% (BldA) [Mass fraction] 100 % Karen Dohsi MD Work Phone: [facility] 10-02-2021 09:53-0400 Systolic blood pressure 108 mm[Hg] Karen Doshi MD Work Phone: [facility] 09-08-2021 11:19-0400 Body height 157.5 cm Hellen Thomas DO Work Phone: [facility] 09-08-2021 11:19-0400 Body weight 84.82 kg Hellen Thomas DO Work Phone: [facility] 09-08-2021 11:19-0400 Diastolic blood pressure 75 mm[Hg] Hellen Thomas DO Work Phone: [facility] 09-08-2021 11:19-0400 Systolic blood pressure 123 mm[Hg] Hellen Thomas DO Work Phone: [facility] 09-02-2021 20:00-0400 Diastolic blood pressure 84 mm[Hg] Dr. Rudy Branch Work Phone: [facility] Work Phone: 09-02-2021 20:00-0400 Systolic blood pressure 120 mm[Hg] Dr. Rudy Branch Work Phone: [facility] Work Phone: 09-02-2021 15:40-0400 Body height 157.[address] Rudy Branch Work Phone: [facility] Work Phone: 09-02-2021 15:40-0400 Body mass index (BMI) [Ratio] 34.2 kg/m2 Dr. Rudy Branch Work Phone: [facility] Work Phone: 09-02-2021 15:40-0400 Body temperature 99.6 [degF] Dr. Rudy Branch Work Phone: [facility] Work Phone: 09-02-2021 15:40-0400 Body weight 84.[address] Rudy Branch Work Phone: [facility] Work Phone: 09-02-2021 15:40-0400 Heart rate 74 /min Dr. Rudy Branch Work Phone: [facility] Work Phone: 09-02-2021 15:40-0400 Respiratory rate 16 /min Dr. Rudy Branch Work Phone: [facility] Work Phone: 09-02-2021 15:40-0400 SaO2% (BldA) [Mass fraction] 99 % Dr. Rudy Branch Work Phone: [facility] Work Phone: 08-28-2021 10:05-0400 Body temperature 98 [degF] Dr. Rudy Branch Work Phone: [facility] Work Phone: 08-28-2021 10:05-0400 Diastolic blood pressure 72 mm[Hg] Dr. Rudy Branch Work Phone: [facility] Work Phone: 08-28-2021 10:05-0400 Heart rate 92 /min Dr. Rudy Branch Work Phone: [facility] Work Phone: 08-28-2021 10:05-0400 Respiratory rate 14 /min Dr. Rudy Branch Work Phone: [facility] Work Phone: 08-28-2021 10:05-0400 SaO2% (BldA) [Mass fraction] 99 % Dr. Rudy Branch Work Phone: [facility] Work Phone: 08-28-2021 10:05-0400 Systolic blood pressure 124 mm[Hg] Dr. Rudy Branch Work Phone: [facility] Work Phone: 08-15-2021 15:01-0400 Body mass index (BMI) [Ratio] 33.9 kg/m2 Dr. Rudy Branch Work Phone: [facility] Work Phone: 08-15-2021 15:01-0400 Body weight 84.[address] Rudy Branch Work Phone: [facility] Work Phone: 08-15-2021 15:01-0400 Diastolic blood pressure 88 mm[Hg] Dr. Rudy Branch Work Phone: [facility] Work Phone: 08-15-2021 15:01-0400 Systolic blood pressure 118 mm[Hg] Dr. Rudy Branch Work Phone: [facility] Work Phone: 08-15-2021 15:01-0400 Body height 157.[address] Rudy Branch Work Phone: [facility] Work Phone: 08-15-2021 15:01-0400 Body mass index (BMI) [Ratio] 33.9 kg/m2 Dr. Rudy Branch Work Phone: [facility] Work Phone: 08-15-2021 15:01-0400 Body weight 84.[address] Rudy Branch Work Phone: [facility] Work Phone: 08-15-2021 15:01-0400 Diastolic blood pressure 88 mm[Hg] Dr. Rudy Branch Work Phone: [facility] Work Phone: 08-15-2021 15:01-0400 Systolic blood pressure 118 mm[Hg] Dr. Rudy Branch Work Phone: [facility] Work Phone: 07-25-2021 15:47-0400 Diastolic blood pressure 74 mm[Hg] ENRIKE MARIE MD [facility] 07-25-2021 15:47-0400 Heart rate 73 /min ENRIKE MARIE MD [facility] 07-25-2021 15:47-0400 Reason For Taking VItal Signs ENRIKE MARIE MD [facility] 07-25-2021 15:47-0400 Respiratory rate 18 /min ENRIKE MARIE MD [facility] 07-25-2021 15:47-0400 Systolic blood pressure 113 mm[Hg] ENRIKE MARIE MD [facility] 07-25-2021 14:05-0400 Diastolic blood pressure 81 mm[Hg] ENRIKE MARIE MD [facility] 07-25-2021 14:05-0400 Heart rate 76 /min ENRIKE MARIE MD [facility] 07-25-2021 14:05-0400 Reason For Taking VItal Signs ENRIKE MARIE MD [facility] 07-25-2021 14:05-0400 Respiratory rate 20 /min ENRIKE MARIE MD [facility] 07-25-2021 14:05-0400 Systolic blood pressure 125 mm[Hg] ENRIKE MARIE MD [facility] 07-25-2021 13:19-0400 Body temperature 98.42 [degF] ENRIKE MARIE MD [facility] 07-25-2021 13:19-0400 Diastolic blood pressure 89 mm[Hg] ENRIKE MARIE MD [facility] 07-25-2021 13:19-0400 Heart rate 77 /min ENRIKE MARIE MD [facility] 07-25-2021 13:19-0400 Respiratory rate 22 /min ENRIKE MARIE MD [facility] 07-25-2021 13:19-0400 Systolic blood pressure 144 mm[Hg] ENRIKE MARIE MD [facility] 05-19-2021 13:28-0500 Body height 157.[address] Rudy Branch Work Phone: [facility] Work Phone: 05-19-2021 13:28-0500 Body weight 81.[address] Rudy Branch Work Phone: [facility] Work Phone: 05-19-2021 13:28-0500 Diastolic blood pressure 78 mm[Hg] Dr. Rudy Branch Work Phone: [facility] Work Phone: 05-19-2021 13:28-0500 Heart rate 88 /min Dr. Rudy Branch Work Phone: [facility] Work Phone: 05-19-2021 13:28-0500 Respiratory rate 16 /min Dr. Rudy Branch Work Phone: [facility] Work Phone: 05-19-2021 13:28-0500 Systolic blood pressure 116 mm[Hg] Dr. Rudy Branch Work Phone: [facility] Work Phone: 05-04-2021 22:03-0500 SaO2% (BldA) [Mass fraction] 98 % Dr. Rudy Branch Work Phone: [facility] Work Phone: 05-04-2021 22:02-0500 Heart rate 88 /min Dr. Rudy Branch Work Phone: [facility] Work Phone: 05-04-2021 21:07-0500 Body temperature 98.6 [degF] Dr. Rudy Branch Work Phone: [facility] Work Phone: 05-04-2021 21:07-0500 Diastolic blood pressure 74 mm[Hg] Dr. Rudy Branch Work Phone: [facility] Work Phone: 05-04-2021 21:07-0500 Respiratory rate 17 /min Dr. Rudy Branch Work Phone: [facility] Work Phone: 05-04-2021 21:07-0500 Systolic blood pressure 132 mm[Hg] Dr. Rudy Branch Work Phone: [facility] Work Phone: 05-04-2021 18:33-0500 Body mass index (BMI) [Ratio] 32.9 kg/m2 Dr. Rudy Branch Work Phone: [facility] Work Phone: 05-04-2021 18:33-0500 Body weight 81.[address] Rudy Branch Work Phone: [facility] Work Phone: 05-04-2021 11:14-0500 Body temperature 99.14 [degF] WILMAR WILLIAMSON DO [facility] 05-04-2021 11:14-0500 Diastolic blood pressure 93 mm[Hg] WILMAR WILLIAMSON DO [facility] 05-04-2021 11:14-0500 Heart rate 97 /min WILMAR WILLIAMSON DO [facility] 05-04-2021 11:14-0500 Respiratory rate 18 /min WILMAR WILLIAMSON DO [facility] 05-04-2021 11:14-0500 Systolic blood pressure 142 mm[Hg] WILMAR WILLIAMSON DO [facility] 04-22-2021 12:55-0500 Diastolic blood pressure 70 mm[Hg] Dr. Rudy Branch Work Phone: [facility] Work Phone: 04-22-2021 12:55-0500 Heart rate 79 /min Dr. Rudy Branch Work Phone: [facility] Work Phone: 04-22-2021 12:55-0500 SaO2% (BldA) [Mass fraction] 98 % Dr. Rudy Branch Work Phone: [facility] Work Phone: 04-22-2021 12:55-0500 Systolic blood pressure 108 mm[Hg] Dr. Rudy Branch Work Phone: [facility] Work Phone: 01-02-2021 14:45-0400 Body height 157.48 cm Rudy Herrera [employer] Work Phone: [id number] [address] Work Phone: 01-02-2021 14:45-0400 Body mass index (BMI) [Ratio] 34.39 kg/m2 Rudy Herrera [employer] Work Phone: [id number] [address] Work Phone: 01-02-2021 14:45-0400 Body surface area Derived from formula 1.86 m2 Rudy Herrera [employer] Work Phone: [id number] [address] [place] Work Phone: 01-02-2021 14:45-0400 Body weight 85.28 kg Rudy Herrera [employer] Work Phone: [id number] [address] Work Phone: 01-02-2021 14:45-0400 Diastolic blood pressure 72 mm[Hg] Rudy Herediautzman Work Phone: [id number] [address] [place] Work Phone: 01-02-2021 14:45-0400 Systolic blood pressure 115 mm[Hg] Rudy Herediautzman Work Phone: [id number] [address] [place] Work Phone: 01-02-2021 14:45-0400 7 7 Rudy Herediautzman Work Phone: [id number] [address] [place] Work Phone: Comment on above: [employer] 12-11-2020 07:46-0400 Body mass index (BMI) [Ratio] 34.44 kg/m2 Rudy Branch Work Phone: [facility] Work Phone: 12-11-2020 07:46-0400 Body surface area Derived from formula 1.86 m2 Rudy Branch Work Phone: [email or web address] [facility] Work Phone: 12-11-2020 07:46-0400 Body temperature 97.5 [degF] Rudy Branch Work Phone: [email or web address] [facility] Work Phone: 12-11-2020 07:46-0400 Body weight 85.42 kg Rudy Branch Work Phone: [email or web address] [facility] Work Phone: 12-11-2020 07:46-0400 Diastolic blood pressure 78 mm[Hg] Rudy Branch Work Phone: [email or web address] [facility] Work Phone: 12-11-2020 07:46-0400 Heart rate 80 /min Rudy Branch Work Phone: [email or web address] [facility] Work Phone: 12-11-2020 07:46-0400 Respiratory rate 18 /min Rudy Branch [employer] Phone: [email or web address] [facility] Work Phone: 12-11-2020 07:46-0400 SaO2% (BldA) [Mass fraction] 98 % Rudy Branch Work Phone: [email or web address] [facility] Work Phone: 12-11-2020 07:46-0400 Systolic blood pressure 110 mm[Hg] Rudy Branch Work Phone: [email or web address] [facility] Work Phone: 07-08-2020 13:53-0400 Body mass index (BMI) [Ratio] 32.7 kg/m2 Dr. Rudy rBanch Work Phone: [facility] Work Phone: 02-15-2019 15:00-0500 Body Temperature 97.7 [degF] Gumaro Blankenship [facility], [place] 02-15-2019 15:00-0500 BP Diastolic 69 mm[Hg] Gumaro [facility] , [place] 02-15-2019 15:00-0500 BP Systolic 111 mm[Hg] Gumaro [facility] [place] 02-15-2019 15:00-0500 Pulse (Heart Rate) 78 /min Naik [facility] 02-15-2019 15:00-0500 Pulse Oximetry 97 % Gumaro [facility] [place] 02-15-2019 15:00-0500 Respiratory Rate 18 /min Gumaro [facility], [place] 02-15-2019 09:13-0500 BMI (Body Mass Index) 33.65 kg/m[facility] [place] 02-15-2019 09:13-0500 Body weight 83.46 [facility] [place] 02-15-2019 09:13-0500 Height 157.5 [facility] [place] 02-08-2019 09:35-0500 Height 157.5 cm [facility] [place] 02-08-2019 09:33-0500 BMI (Body Mass Index) 33.75 kg/m2 Gumaro [facility], [place] 02-08-2019 09:33-0500 Body Temperature 99 [degF] Gumaro [facility], [place] 02-08-2019 09:33-0500 Body [facility] 83.69 [facility] [place] 02-08-2019 09:33-0500 BP Diastolic 80 mm[Hg] [facility] [place] 02-08-2019 09:33-0500 BP Systolic 126 mm[Hg] [facility] [place] 02-08-2019 09:33-0500 Pulse (Heart Rate) 97 /min Gumaro Blankenship [facility], [place] 02-08-2019 09:33-0500 Pulse Oximetry 100 % Gumaro [facility] , [place] 02-08-2019 09:33-0500 Respiratory Rate 16 /min Naik [place] 01-18-2017 12:36-0400 BMI (Body Mass Index) 33.83 kg/m2 Mayela Tyler [facility] Work Phone: 01-18-2017 12:36-0400 Body weight 83.92 kg Mayela Tyler [facility] Work Phone: 01-18-2017 12:36-0400 BP Diastolic 80 mm[Hg] Mayela Tyler [facility] Work Phone: 01-18-2017 12:36-0400 BP Systolic 124 mm[Hg] Mayela Tyler [facility] Work Phone: 01-18-2017 12:36-0400 Height 157.48 cm Mayela Tyler [facility]O [facility] Work Phone: 01-18-2017 12:36-0400 Pulse (Heart Rate) 76 /min Mayela Jayson PAUL [facility] Work Phone: 01-18-2017 12:36-0400 Respiratory Rate 18 /min Mayela Tyler [facility] Work Phone: 01-18-2017 12:36-0400 Weight 83.92 kg Mayela Tyler [facility] Work Phone: 12-18-2016 12:58-0400 Body height 157.48 cm Mia Meehan MD Work Phone: [facility] 12-18-2016 12:58-0400 Body mass index (BMI) [Ratio] 33.07 kg/m2 Mia Meehan MD Work Phone: [facility] 12-18-2016 12:58-0400 Body temperature 98.2 [degF] Mia Meehan MD Work Phone: [facility] 12-18-2016 12:58-0400 Body weight 82.01 kg Mia Meehan MD Work Phone: [facility] 12-18-2016 12:58-0400 Diastolic blood pressure 74 mm[Hg] Mia Meehan MD Work Phone: [facility] 12-18-2016 12:58-0400 Heart rate 68 /min Mia Meehan MD Work Phone: [facility] 12-18-2016 12:58-0400 Respiratory rate 16 /min Mia Meehan MD Work Phone: [facility] 12-18-2016 12:58-0400 Systolic blood pressure 117 mm[Hg] Mia Meehan MD Work Phone: [facility] 12-18-2016 12:58-0400 Weight 82.01 kg Mayela Tyler LPN [facility] [place] Work Phone: 11-26-2016 14:38-0400 Body height 157.48 cm Mia Meehan MD Work Phone: [facility] 11-26-2016 14:38-0400 Body mass index (BMI) [Ratio] 33.21 kg/m2 Mia Meehan MD Work Phone: [facility] 11-26-2016 14:38-0400 Body temperature 98.9 [degF] Mia Meehan MD Work Phone: [facility] 11-26-2016 14:38-0400 Body temperature 98.91 [degF] Mia Meehan MD Work Phone: [facility] 11-26-2016 14:38-0400 Body weight 82.37 kg Mia Meehan MD Work Phone: [facility] 11-26-2016 14:38-0400 Diastolic blood pressure 69 mm[Hg] Mia Meehan MD Work Phone: [facility] 11-26-2016 14:38-0400 Heart rate 68 /min Mia Meehan MD Work Phone: [facility] 11-26-2016 14:38-0400 Respiratory rate 16 /min Mia Meehan MD Work Phone: [facility] 11-26-2016 14:38-0400 Systolic blood pressure 106 mm[Hg] Mia Meehan MD Work Phone: [facility] 11-19-2016 08:15-0400 Body height 157.48 cm Canelo Cogar RANCH HAND Work Phone: [facility] Work Phone: 11-19-2016 08:15-0400 Body mass index (BMI) [Ratio] 32.55 kg/m2 Canelo Cogar RANCH HAND Work Phone: [facility] Work Phone: 11-19-2016 08:15-0400 Body temperature 97.8 [degF] Canelo Cogar RANCH HAND Work Phone: [facility] Work Phone: 11-19-2016 08:15-0400 Body weight 80.74 kg Canelo Cogar RANCH HAND Work Phone: [facility] Work Phone: 11-19-2016 08:15-0400 Diastolic blood pressure 86 mm[Hg] Canelo Cogar RANCH HAND Work Phone: [facility] Work Phone: 11-19-2016 08:15-0400 Heart rate 92 /min Canelo Cogar RANCH HAND Work Phone: [facility] Work Phone: 11-19-2016 08:15-0400 Respiratory rate 12 /min Canelo Cogar RANCH HAND Work Phone: [facility] Work Phone: 11-19-2016 08:15-0400 Systolic blood pressure 128 mm[Hg] Canelo Cogar RANCH HAND Work Phone: [facility] Work Phone: 10-22-2016 13:41-0400 Body height 157.48 cm Colleen Rosenbergok CORE MOUNTER Work Phone: [facility] Work Phone: 10-22-2016 13:41-0400 Body mass index (BMI) [Ratio] 33.32 kg/m2 Colleen Rosenbergok CORE MOUNTER Work Phone: [facility] Work Phone: 10-22-2016 13:41-0400 Body temperature 99.5 [degF] Colleen Rosenbergok CORE MOUNTER Work Phone: [facility] Work Phone: 10-22-2016 13:41-0400 Body weight 82.65 kg Colleen Rosenbergok CORE MOUNTER Work Phone: [facility] Work Phone: 10-22-2016 13:41-0400 Body weight 82.64 kg Mia Meehan MD Work Phone: [facility] 10-22-2016 13:41-0400 Diastolic blood pressure 77 mm[Hg] Colleen Rosenbergok CORE MOUNTER Work Phone: [facility] Work Phone: 10-22-2016 13:41-0400 Heart rate 83 /min Colleen Rosenbergok CORE MOUNTER Work Phone: [facility] Work Phone: 10-22-2016 13:41-0400 Systolic blood pressure 122 mm[Hg] Colleen Rosenbergok CORE MOUNTER Work Phone: [facility] Work Phone: 10-02-2016 15:15-0400 Body height 160.02 cm Canelo Ken RANCH HAND Work Phone: [facility] Work Phone: 10-02-2016 15:15-0400 Body mass index (BMI) [Ratio] 31.88 kg/m2 Canelo Cogar RANCH HAND Work Phone: [facility] Work Phone: 10-02-2016 15:15-0400 Body temperature 97.9 [degF] Canelo Rogers RANCH HAND Work Phone: [facility] Work Phone: 10-02-2016 15:15-0400 Body weight 81.65 kg Canelo Rogers RANCH HAND Work Phone: [facility] Work Phone: 10-02-2016 15:15-0400 Diastolic blood pressure 82 mm[Hg] Canelo Rogers RANCH HAND Work Phone: [facility] Work Phone: 10-02-2016 15:15-0400 Heart rate 86 /min Canelo Rogers RANCH HAND Work Phone: [facility] Work Phone: 10-02-2016 15:15-0400 Respiratory rate 14 /min Canelo Rogers RANCH HAND Work Phone: [facility] Work Phone: 10-02-2016 15:15-0400 Systolic blood pressure 128 mm[Hg] Canelo Rogers RANCH HAND Work Phone: [facility] Work Phone: 08-05-2016 13:27-0400 Body height 157.48 cm Colleen Rosenbergok CORE MOUNTER Work Phone: [facility] Work Phone: 08-05-2016 13:27-0400 Body mass index (BMI) [Ratio] 33.54 kg/m2 Colleen Shook CORE MOUNTER Work Phone: [facility] Work Phone: 08-05-2016 13:27-0400 Body surface area Derived from formula 1.84 m2 Colleen Shook CORE MOUNTER Work Phone: [facility] Work Phone: 08-05-2016 13:27-0400 Body weight 83.19 kg Colleen Rosenbergok CORE MOUNTER Work Phone: [facility] Work Phone: 08-05-2016 13:27-0400 Diastolic blood pressure 78 mm[Hg] Colleen Rosenbergok CORE MOUNTER Work Phone: [facility] Work Phone: 08-05-2016 13:27-0400 Heart rate 81 /min Colleen Rosenbergok CORE MOUNTER Work Phone: [facility] Work Phone: 08-05-2016 13:27-0400 Respiratory rate 18 /min Colleen Rosenbergok CORE MOUNTER Work Phone: [facility] Work Phone: 08-05-2016 13:27-0400 SaO2% (BldA) [Mass fraction] 100 % Colleen Rosenbergok CORE MOUNTER Work Phone: [facility] Work Phone: 08-05-2016 13:27-0400 Systolic blood pressure 115 mm[Hg] Colleen Dale CORE MOUNTER Work Phone: [facility] Work Phone: 10-09-2015 08:18-0400 Body mass index (BMI) [Ratio] 30.32 kg/m2 Colleen Rosenbergok CORE MOUNTER Work Phone: [facility] Work Phone: 10-09-2015 08:18-0400 Body surface area Derived from formula 1.77 m2 Colleen Rosenbergok CORE MOUNTER Work Phone: [facility] Work Phone: 10-09-2015 08:18-0400 Body temperature 99.5 [degF] Colleen Rosenbergok CORE MOUNTER Work Phone: [facility] Work Phone: 10-09-2015 08:18-0400 Body weight 75.21 kg Colleen Rosenbergok CORE MOUNTER Work Phone: [facility] Work Phone: 10-09-2015 08:18-0400 Diastolic blood pressure 82 mm[Hg] Colleen Rosenbergok CORE MOUNTER Work Phone: [facility] Work Phone: 10-09-2015 08:18-0400 Heart rate 81 /min Colleen Dale CORE MOUNTER Work Phone: [facility] Work Phone: 10-09-2015 08:18-0400 Respiratory rate 16 /min Colleen Dale CORE MOUNTER Work Phone: [facility] Work Phone: 10-09-2015 08:18-0400 SaO2% (BldA) [Mass fraction] 98 % Colleen Shook CORE MOUNTER Work Phone: [facility] Work Phone: 10-09-2015 08:18-0400 Systolic blood pressure 122 mm[Hg] Colleen Rosenbergok CORE MOUNTER Work Phone: [facility] Work Phone: 06-22-2013 09:30-0400 Body height 157.48 cm Colleen Dale CORE MOUNTER Work Phone: [facility] Work Phone: Encounters Encounter Date Encounter Type Care Provider Facility Start: 10-17-2024 ambulatory [facility] Facility:[facility] Start: 10-10-2024 End: 10-10-2024 Patient encounter procedure Mey BLANTON -[facility] Work Phone: Start: 10-10-2024 End: 10-10-[address] Rudy Branch DO Work Phone: -[facility] Start: 09-25-2024 End: 09-25-2024 Telephone encounter Rudy Branch DO Work Phone: [facility] Comment on above: Results Start: 09-23-2024 End: 09-25-2024 Follow-up encounter Alex BLANTON Work Phone: [facility] Start: 09-22-2024 End: 09-22-2024 Patient encounter procedure Lizet Hale APRN.CNP Work Phone: [facility] Comment on above: Urgency of urination (Primary Dx); Eustachian tube dysfunction, bilateral; Crohn's disease without complication, unspecified gastrointestinal tract location (HCC) Start: 09-22-2024 End: 09-22-2024 ambulatory LIZET HALE Facility:[facility] Start: 09-08-2024 End: 09-08-[address] Rudy Branch DO Work Phone: [facility] Work Phone: Start: 09-08-2024 End: 09-08-[address] Rudy Branch DO -Laboratory [facility] Work Phone: Start: 09-08-2024 End: 09-08-2024 Dr. Rudy Branch DO -Laboratory Pierre do Work Phone: Start: 09-08-2024 End: 09-08-2024 Patient encounter procedure Noreen BLANTON -[facility] Work Phone: Start: 09-08-2024 End: 09-08-2024 Noreen BLANTON -[facility] Work Phone: Start: 09-08-2024 End: 09-08-[address] Rudy Branch DO Work Phone: [facility] Work Phone: Start: 09-08-2024 End: 09-08-2024 ambulatory Logan Junior Facility:[facility] Start: 08-09-2024 End: 08-09-2024 Patient encounter procedure Logan Junior DO -[facility] Work Phone: Start: 08-09-2024 End: 08-09-2024 Logan Junior DO -[facility] Work Phone: Start: 08-09-2024 End: 08-09-[address] Rudy Branch DO Work Phone: [place] [facility] Work Phone: Start: 08-07-2024 ambulatory Logan Junior Facility :[facility] Start: 07-19-2024 End: 07-19-2024 Dr. Rudy Branch DO Work Phone: -Emergency Department Work Phone: Start: 07-19-2024 End: 07-19-2024 Emergency department patient visit Dr. Rudy Branch DO Work Phone: [facility] Work Phone: Start: 07-17-2024 ambulatory [facility] [place] [facility] Start: 07-16-2024 End: 07-16-2024 Dr. Rudy Branch DO Work Phone: -Emergency Department Work Phone: Start: 07-16-2024 End: 07-16-2024 Emergency department patient visit Dr. Rudy Branch DO Work Phone: [facility] Work Phone: Start: 07-10-2024 ambulatory NICK Sellersi ty:[facility] Start: 07-10-2024 End: 07-10-2024 Office outpatient visit 25 minutes Nick Mcmanus DO Work Phone: Department of Gynecologic Oncology Comment on above: Screening for diabet es mellitus (Primary Dx); Pelvic mass; Low libido Start: 07-10-2024 ambulatory NICK Sellersi ty:[facility] Start: 06-27-2024 End: 06-27-[address] Rudy Branch DO Work Phone: -Ultrasound [facility] Work Phone: Start: 06-27-2024 End: 06-27-2024 Dr. Rudy Branch DO Work Phone: -Ultrasound, [facility] Work Phone: Start: 06-27-2024 End: 06-27-2024 ambulatory [facility] Start: 06-08-2024 End: 06-08-[address] Rudy Branch DO -Medical Out Work Phone: Start: 06-08-2024 End: 06-08-2024 Dr. Rudy Branch DO -Medical Out Work Phone: Start: 06-08-2024 End: 06-08-[address] Rudy Branch DO Work Phone: [facility] Work Phone: Start: 06-07-2024 ambulatory Ceci Camara ty:[facility] Start: 06-05-2024 End: 06-05-[address] Rudy Branch DO Work Phone: [facility] Work Phone: Start: 06-05-2024 End: 06-05-2024 Patient encounter procedure Ceci Martinez CORE MOUNTER-C -Laboratory Work Phone: Start: 06-05-2024 End: 06-05-2024 Ceci Martinez CORE MOUNTER-C -Laboratory Work Phone: Start: 06-05-2024 ambulatory NICK Camara ty:[facility] Start: 06-05-2024 End: 06-05-2024 ambulatory Rudy Branch Facility:[facility] Start: 05-30-2024 End: 05-30-2024 Dr. Stewart Edmonds DO -Emergency Departme nt Work Phone: Start: 05-30-2024 End: 05-30-2024 Emergency department patient visit Dr. Rduy Branch DO Work Phone: -Emergency Department Work Phone: Start: 05-29-2024 End: 05-29-[address] Rudy Branch DO Work Phone: [facility] Work Phone: Start: 05-29-2024 End: 05-29-2024 Patient encounter procedure Ceci Martinez CORE MOUNTER-C -Laboratory Work Phone: Start: 05-29-2024 End: 05-29-2024 Ceci Martinez NP-C -Laboratory Work Phone: Start: 05-29-2024 End: 05-29-2024 Patient encounter procedure Ceci UGALDE -[facility] Work Phone: Start: 05-29-2024 End: 05-29-2024 Ceci UGALDE -[facility] Work Phone: Start: 05-29-2024 End: 05-29-2024 ambulatory Rudy Branch [place] [place] Start: 05-29-2024 End: 05-29-2024 ambulatory Ceci Martinez Facility:[facility] Start: 05-12-[address] [facility] [facility] [facility] Start: 04-27-2024 End: 04-27-[address] Rudy Gonsalez [place] Work Phone: Start: 04-27-2024 End: 04-27-2024 Dr. Rudy Gonsalez [facility] Work Phone: Start: 04-27-2024 End: 04-27-2024 Patient encounter procedure Noreen BLANTON -[facility] Work Phone: Start: 04-27-2024 End: 04-27-2024 Noreen BLANTON -[facility] Work Phone: Start: 04-27-2024 End: 04-27-2024 ambulatory Noreen Rosenberg [place] [place] Start: 04-27-2024 End: 04-27-2024 ambulatory Rudy Branch Facility:[facility] Start: 04-23-2024 End: 04-24-2024 Emergency department patient visit DR MONI ALCANTARA MD [facility] Start: 04-19-2024 End: 04-19-2024 Patient encounter procedure Franny BLANTON -[facility] Work Phone: Start: 04-19-2024 End: 04-19-2024 Franny BLANTON -[facility] Work Phone: Start: 04-19-2024 End: 04-19-2024 ambulatory Rudy Branch Facility:[facility] Start: 04-18-2024 End: 04-18-[address] Pernell Johnson MD -Laboratory Work Phone: Start: 04-18-2024 End: 04-18-2024 Dr. Pernell Johnson MD -Laboratory Work Phone: Start: 04-18-2024 End: 04-18-[address] [facility] Facility:[facility] Start: 04-05-2024 End: 04-05-2024 Patient encounter procedure Ceci Martinez CORE MOUNTER-C -[facility] Work Phone: Start: 04-05-2024 End: 04-05-2024 Ceci Martinez NP-C -[facility] Work Phone: Start: 04-05-2024 End: 04-05-2024 ambulatory Ceci Martinez Facility:[facility] Start: 04-04-2024 End: 04-04-[address] Pernell Johnson MD -[facility] Work Phone: Start: 04-04-2024 End: 04-04-2024 Dr. Pernell Johnson MD -[facility] Work Phone: Start: 04-04-2024 End: 04-04-2024 ambulatory Pernell Johnson Facility:[facility] Start: 03-03-2024 End: 03-03-[address] [facility] Start: 03-03-2024 End: 03-03-2024 ambulatory Rudy [facility] Facility:[facility] Start: 02-03-2024 End: 02-03-2024 ambulatory Loganernestina Junior Facility:[facility] Start: 01-17-2024 End: 01-17-2024 Office consultation new/estab patient 80 min iNck Mcmanus DO Work Phone: Department of Gynecologic Oncology Comment on above: Malignant neoplasm o f left ovary (Primary Dx); Urinary frequency Start: 01-17-2024 ambulatory NICK Camara ty:[facility] Start: 01-13-2024 End: 01-13-2024 ambulatory Rudy HerediaJose Carlos Facility:[facility] Start: 01-13-2024 End: 01-13-2024 ambulatory Logan Junior Facility:[facility] Start: 12-31-2023 End: 12-31-2023 ambulatory Loganernestina Junior Facility:[facility] Start: 12-27-2023 End: 12-27-2023 ambulatory Rudy [facility] [place] [place] Start: 12-17-2023 End: 12-17-2023 Emergency department patient visit Rudy [facility] Facility:[facility] Start: 11-26-2023 End: 11-26-2023 ambulatory Logan Junior [place] [place] Start: 11-26-2023 End: 11-26-2023 ambulatory Logan Junior Facility:[facility] Start: 11-19-2023 End: 11-19-[address] [facility] Facility:[facility] Start: 11-19-2023 End: 11-19-[address] [facility] Facility:[facility] Start: 11-08-2023 End: 11-08-[address] [facility] Facility:[facility] Start: 11-05-2023 End: 11-05-2023 Office outpatient visit 40 minutes Canelo Pina APRN-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 Work Phone: [facility] Comment on above: Pelvic floor dysfunc tion (Primary Dx); History of kidney stones; Vaginal atrophy; Endometriosis; Yeast infection of the skin Start: 11-05-2023 End: 11-05-2023 ambulatory CANELO PINA [facility] Start: 11-03-2023 End: 11-03-2023 Emergency department patient visit ESTELLA MILLER MD [facility] Start: 10-29-2023 End: 10-29-2023 ambulatory Sneha Benton APRN.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 Work Phone: [facility] Comment on above: Acne vulgaris (Prima ry Dx) Start: 10-29-2023 End: 10-29-2023 Telemedicine consultation with patient Sneha Benton 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 Work Phone: [facility] [place] Start: 10-28-2023 End: 10-28-2023 ambulatory Mey Yun Facility:[facility] Start: 10-07-2023 End: 10-07-2023 Subsequent hospital visit by physician Guillaume Byrd [facility] Comment on above: Endometriosis Start: 10-07-2023 End: 10-07-2023 ambulatory [facility] Start: 09-07-2023 End: 09-07-2023 Patient encounter procedure Brenda Berg MD Work Phone: [facility] General Rheumatology and Arthritis Comment on above: IAN positive (Primar y Dx); Pain in joint, multiple sites Start: 09-07-2023 End: 09-07-2023 Telemedicine consultation with patient Brenda Berg MD Work Phone: [facility] General Rheumatology and Arthritis Start: 09-07-2023 End: 09-07-2023 ambulatory [facility] Facility:[facility] Start: 09-03-2023 Telephone encounter Brenda tinajero MD Work Phone: [facility] Arthritis & Rheumatology Comment on above: Insurance Authorizat ion (MRI pelvis denial GOPAL) Start: 08-17-2023 End: 08-17-2023 Office outpatient visit 25 minutes Canelo Pina APRN-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 Work Phone: [facility] Comment on above: Endometriosis (Prima ry Dx); Pelvic floor dysfunction; Pelvic pain in female Start: 08-17-2023 End: 08-17-2023 ambulatory CANELO Rob [facility] Start: 08-06-2023 End: 08-07-2023 ambulatory CANELO Rob [facility] Start: 08-06-2023 End: 08-06-2023 Subsequent hospital visit by physician [facility] Comment on above: Endometriosis Start: 07-29-2023 Non-patient / Non-visit Dr. Krzysztof Branch Work Phone: [facility] Start: 07-29-2023 End: 07-29-[address] Rudy Branch Work Phone: [facility] Work Phone: Start: 07-29-2023 End: 07-29-2023 Patient encounter procedure Sneha Benton APRN.CNP Work Phone: Dermatology [facility] Comment on above: Acne excoriee (Prima ry Dx); Hidradenitis suppurativa Start: 07-27-2023 ambulatory Brenda herrera MD Work Phone: [facility] General Rheumatology and Arthritis Start: 07-27-2023 Patient encounter procedure Brenda Berg MD Work Phone: [facility] General Rheumatology and Arthritis Comment on above: Post lab work and mr i schedule Start: 07-22-2023 End: 07-22-2023 ambulatory RUDY Herrera [facility] Start: 07-22-2023 End: 07-22-2023 Subsequent hospital visit by physician Xr Bath 2 [facility] Comment on above: Pain in joint, multi ple sites [M25.50] Start: 07-22-2023 End: 07-22-2023 Patient encounter procedure Brenda Berg MD Work Phone: [facility] General Rheumatology and Arthritis Comment on above: Pain in joint, multi ple sites (Primary Dx); Inflammatory bowel disease; Vitamin D deficiency Start: 07-22-2023 End: 07-22-2023 ambulatory RUDY Sharon [facility] Start: 07-15-2023 Non-patient / Non-visit Dr. Krzysztof Branch Work Phone: [facility] Start: 07-15-2023 End: 07-15-2023 Admission to same day surgery center Dr. Rudy Branch Work Phone: [facility]-Endoscopy Work Phone: Start: 07-15-2023 End: 07-15-[address] Rudy Branch Work Phone: [facility] Work Phone: Start: 07-12-2023 Telephone encounter Cammy Nicholas rt DANIELS Work Phone: [facility] Comment on above: Nutrition Counseling (Consult) Start: 07-12-2023 End: 07-12-[address] Work Phone: [facility] Comment on above: Obesity, Class I, BM I 30-34.9 (Primary Dx); Insulin resistance; PCOS (polycystic ovarian syndrome); Impaired fasting glucose Start: 07-12-2023 End: 07-12-2023 Telemedicine consultation with patient Cammy Boyce RD Work Phone[facility] Start: 07-08-2023 End: 07-08-2023 Patient encounter procedure Zainab Duckworth MD Work Phone: [facility] Comment on above: Radiculopathy, cervi adelita region (Primary Dx); Cervical disc displacement; Myofascial pain; Lumbosacral neuritis; Mixed connective tissue disease (HCC) Start: 07-08-2023 End: 07-08-2023 ambulatory RUDY BRANCH Facility:[facility] Start: 06-28-2023 End: 06-28-[address] Rudy Branch Work Phone: [facility] Work Phone: Start: 06-28-2023 End: 06-28-[address] Rudy Branch Work Phone: [facility]-Laboratory Work Phone: Start: 06-28-2023 End: 06-28-[address] Rudy Branch Work Phone: [facility] Work Phone: Start: 06-21-2023 End: 06-21-2023 Office outpatient visit 15 minutes Rossy L Lainez DESIGNER-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 Work Phone: [facility] Comment on above: Urinary frequency (P rimary Dx); Nephrolithiasis; Pelvic pain; Bladder spasm; Gross hematuria Start: 06-21-2023 End: 06-21-2023 ambulatory ROSSY [place] [facility] Start: 06-17-2023 End: 06-17-2023 Emergency department patient visit Dr. Rudy Branch Work Phone: [facility]-Emergency Department Work Phone: Start: 06-17-2023 End: 06-18-2023 ambulatory CANELO L [facility] Start: 06-17-2023 End: 06-17-2023 Office outpatient visit 25 minutes Canelo Pina DESIGNER-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 Work Phone: [facility] Comment on above: Pelvic floor dysfunc tion (Primary Dx); Endometriosis; Loose stools Start: 06-16-2023 End: 06-16-2023 ambulatory Ky Ford MD Work Phone: [facility] Comment on above: Strain of gastrocnem ius muscle of left lower extremity, subsequent encounter (Primary Dx) Start: 06-16-2023 End: 06-16-2023 Telemedicine consultation with patient Ky Ford MD Work Phone: [facility] Start: 06-11-2023 Telephone encounter Travis powell MD Work Phone: Dermatology Comment on above: Appointment Start: 06-10-2023 End: 06-10-2023 Patient encounter procedure Sterling Love MD Work Phone: Dermatology Comment on above: Acne vulgaris (Prima ry Dx) Start: 06-04-2023 Telephone encounter Gretta canseco DESIGNER.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 Work Phone: [facility] Comment on above: Appointment Start: 06-03-2023 End: 06-03-2023 Phys/qhp telephone evaluation 11-20 min Serjio Thompson MD Work Phone: [facility] Comment on above: Radiculopathy, cervi adelita region (Primary Dx); Chronic midline low back pain without sciatica Start: 06-03-2023 End: 06-03-2023 ambulatory SERJIO THOMPSON Facility:[facility] Start: 06-02-2023 End: 06-02-2023 Subsequent hospital visit by physician [facility] (I-Stat/1.5t) Work Phone: Radiology Comment on above: Other injury of unsp ecified muscle(s) and tendon(s) at lower leg level, unspecified leg, initial encounter [S86.999A] Start: 05-28-2023 End: 05-28-[address] Rudy Branch Work Phone: [facility] Gastroenterology Work Phone: Start: 05-25-2023 End: 05-25-2023 ambulatory ROCHESTER Sharon [facility] Start: 05-25-2023 End: 05-25-2023 Patient encounter procedure Ky Ford MD Work Phone: [facility] Comment on above: Strain of gastrocnem ius muscle of left lower extremity, subsequent encounter (Primary Dx); Other injury of unspecified muscle(s) and tendon(s) at lower leg level, unspecified leg, initial encounter Start: 05-24-2023 End: 05-24-[address] Rudy Branch Work Phone: [facility] Work Phone: Start: 05-24-2023 End: 05-24-[address] Rudy Branch Work Phone: [facility] Work Phone: Start: 05-19-2023 ambulatory Alea Waters MD Work Phone: [facility] Comment on above: Leg pains Start: 05-19-2023 Follow-up encounter Alea Waters MD Work Phone: Endocrinology Comment on above: Follow up needed Start: 05-13-2023 End: 05-14-2023 ambulatory CANELO L [facility] Start: 05-13-2023 End: 05-13-2023 Office outpatient visit 10 minutes Canelo Pina DESIGNER-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 Work Phone: [facility] Comment on above: Pelvic pain in femal e (Primary Dx); Loose stools; Nausea Start: 05-07-2023 End: 05-08-2023 ambulatory [facility] Start: 05-03-2023 End: 05-03-[address] Rudy Branch Work Phone: [facility] Work Phone: Start: 05-03-2023 End: 05-03-[address] Rudy Branch Work Phone: [facility]-Laboratory, Specimen Work Phone: Start: 04-23-2023 End: 04-23-[address] Rudy Branch Work Phone: [facility] Work Phone: Start: 04-23-2023 End: 04-23-[address] Rudy Branch Work Phone: [facility]-Laboratory, [place] Work Phone: Start: 04-22-2023 End: 04-22-2023 [facility] Start: 04-21-2023 End: 04-21-2023 ambulatory [facility] Start: 04-21-2023 End: 04-21-2023 Office outpatient visit 25 minutes [facility] DESIGNER-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 Work Phone: [facility] Comment on above: Loose stools (Primar y Dx); Pelvic pain in female; Gastroesophageal reflux disease, unspecified whether esophagitis present; Dysphagia, unspecified type; Epigastric pain Start: 04-15-2023 End: 04-15-2023 ambulatory [facility] Start: 04-15-2023 End: 04-15-2023 Office outpatient new 60 minutes Rossy Lainez DESIGNER-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 Work Phone: [facility] Comment on above: Urinary frequency (P rimary Dx); Gross hematuria; Left flank pain; Pelvic pain; Bladder spasm Start: 04-14-2023 End: 04-14-2023 [facility] Start: 04-14-2023 End: 04-14-2023 Office outpatient visit 15 minutes Canelo Pina DESIGNER-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 Work Phone: [facility] Comment on above: Difficulty voiding ( Primary Dx); Pelvic pain in female; Bladder spasm Start: 04-08-2023 End: 04-09-2023 ambulatory CANELO Rob [facility] Start: 04-06-2023 End: 04-07-2023 ambulatory RUDY Herrera [facility] Start: 04-06-2023 End: 04-06-2023 Office outpatient visit 40 minutes Canelo Pina DESIGNER-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 Work Phone: [facility] Comment on above: Endometriosis (Prima ry Dx); Pelvic pain in female; History of kidney stones Start: 04-06-2023 End: 04-06-2023 ambulatory CANELO PINA [facility] Start: 03-26-2023 End: 03-26-2023 ambulatory [facility] Facility[facility] Start: 03-25-2023 End: 03-25-2023 Emergency department patient visit DANIEL ARCHER DO [facility] Start: 03-23-2023 End: 03-23-2023 [facility] Start: 03-14-2023 End: 03-14-2023 Emergency department patient visit DR FARIDEH DAVIS MD [facility] Start: 03-13-2023 End: 03-13-2023 Emergency department patient visit Dr. Rudy Branch Work Phone: [facility]-Emergency Department Work Phone: Start: 03-12-2023 End: 03-12-2023 Emergency department patient visit ENRIKE MARIE MD Facility:B Start: 03-10-2023 Non-patient / Non-visit Dr. Krzysztof Branch Work Phone: [facility] Start: 03-10-2023 End: 03-10-[address] Rudy Branch Work Phone: [facility] Work Phone: Start: 03-10-2023 End: 03-10-[address] Rud[facility] Branch [facility] Work [facility]: Start: 03-08-2023 Telephone encounter Serjio peterson MD Work Phone: [facility] Start: 03-05-2023 ambulatory Ky Ford MD Work Phone: [facility] Comment on above: Left leg Start: 03-05-2023 Telephone encounter Gretta canseco APRN.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 Work Phone: [facility] Comment on above: New Patient Start: 03-01-2023 End: 03-01-[address] Rudy Branch Work Phone: [facility] Work Phone: Start: 02-25-2023 End: 02-25-2023 Office outpatient visit 25 minutes Serjio Thompson MD Work Phone: [facility] Comment on above: Radiculopathy, cervi adelita region (Primary Dx); Chronic bilateral low back pain with bilateral sciatica Start: 02-25-2023 End: 02-25-2023 ambulatory SERJIO THOMPSON Facility:[facility] Start: 02-25-2023 ambulatory RUDY Ryan y:[facility] Start: 02-25-2023 End: 02-25-2023 Subsequent hospital visit by physician Michelle Valeroron [employer] [facility] [place] [employer] RECOVERY COORDINATOR Comment on above: Spinal stenosis of c ervical region [M48.02] Spinal stenosis of l umbar region, unspecified whether neurogenic claudication present [M48.061] Start: 02-12-2023 Telephone encounter Lilia Mason on PA-C Work Phone: Dermatology Start: 02-09-2023 End: 02-09-[address] Rudy Branch Work Phone: [facility] Vascular Surgery Work Phone: Start: 02-01-2023 End: 02-01-2023 ambulatory Tamika O'Mauricio PT [facility] Comment on above: Strain of gastrocnem ius muscle of left lower extremity, initial encounter (Primary Dx) Start: 02-01-2023 End: 02-01-2023 Subsequent hospital visit by physician [facility] Work Phone: Radiology Comment on above: S/P laparoscopic hys terectomy [Z90.710] Start: 01-29-2023 Refill Travis Bernard Work Phone: Dermatology Comment on above: Refill Request Start: 01-26-2023 End: 01-26-[address] Rudy Branch Work Phone: [facility] Work Phone: Start: 01-26-2023 End: 01-26-2023 ambulatory Tamika O'Mauricio PT [facility] Comment on above: Strain of gastrocnem ius muscle of left lower extremity, initial encounter (Primary Dx) Start: 01-20-2023 End: 01-20-2023 ambulatory Tamika O'Mauricio PT [facility] Comment on above: Strain of gastrocnem ius muscle of left lower extremity, initial encounter (Primary Dx) Start: 01-14-2023 ambulatory Ky Ford MD Work Phone: [facility] Comment on above: Leg color Start: 10-16-2023 E-mail encounter fro m caregiver [facility] Provider [facility] [address] Start: 01-11-2023 Follow-up encounter [facility] Provider [facility] Comment on above: Follow up Start: 01-08-2023 ambulatory Ky Ford MD Work Phone: [facility] Comment on above: Leg color Strain of gastrocnem ius muscle of left lower extremity, initial encounter (Primary Dx) Start: 01-05-2023 End: 01-05-2023 Patient encounter procedure Ky Ford MD Work Phone: [facility] Comment on above: Strain of gastrocnem ius muscle of left lower extremity, initial encounter (Primary Dx) Start: 01-05-2023 End: 01-05-2023 Subsequent hospital visit by physician [employer] [facility] Radiology Comment on above: Pain [R52] Start: 01-02-2023 End: 01-02-[address] Rudy Branch Work Phone: [facility] Work Phone: Start: 01-02-2023 End: 01-02-[address] Rudy Branch Work Phone: [facility] Work Phone: Start: 01-01-2023 End: 01-01-2023 ambulatory [facility] Ambulatory Start: 12-31-2022 End: 12-31-2022 Patient encounter procedure Liliana Lim APRN.CNP Work Phone: [facility] Comment on above: Urinary frequency (P rimary Dx); Pain of upper abdomen Start: 12-16-2022 End: 12-16-2022 ambulatory Alea Waters MD Work Phone: Endocrinology Comment on above: Obesity, Class I, BM I 30-34.9 Start: 12-16-2022 End: 12-16-2022 Telemedicine consultation with patient Alea Waters MD Work Phone: [facility] Start: 12-16-2022 End: 12-16-[address] Rudy Branch Work Phone: [facility] Orthopaedic Specia Work Phone: Comment on above: NO SHOW (Primary Dx) Start: 12-15-2022 End: 12-15-2022 Phys/qhp telephone evaluation 21-30 min Serjio Thompson MD Work Phone: [facility] Comment on above: Chronic left-sided l ow back pain with left-sided sciatica (Primary Dx); Radiculopathy, cervical region; Radiculopathy, lumbar region; Neck pain; Spinal stenosis of cervical region; Spinal stenosis of lumbar region, unspecified whether neurogenic claudication present Start: 12-15-2022 End: 12-15-2022 ambulatory SERJIO THOMPSON Facility:[facility] Start: 12-11-2022 End: 12-11-2022 Emergency department patient visit POLO PERRY MD [facility] Start: 12-09-2022 Patient encounter procedure Rudy Branch Work Phone: [place] [id number] Work Phone: Start: 12-09-2022 End: 12-09-[address] Marie Styles Facility:[id number] Start: 12-07-2022 Telephone encounter Serjio peterson MD Work Phone: [facility] Comment on above: Appointment Start: 12-01-2022 ambulatory Hellen Thomas DO Work Phone: Gynecology Comment on above: Post hysto pain Start: 12-01-2022 End: 12-01-2022 Emergency department patient visit ENRIKE MARIE MD [facility] Start: 11-26-2022 End: 11-26-2022 ambulatory [facility] Work Phone: Start: 11-26-2022 End: 11-26-2022 Patient encounter procedure [facility]-Radiology, [facility] Work Phone: Start: 11-24-2022 ambulatory Rudy Boyce MD Work Phone: Urology Comment on above: Flank pain Bladder s pasms Start: 11-23-2022 End: 11-23-2022 ambulatory [facility] Work Phone: Start: 11-23-2022 End: 11-23-2022 Patient encounter procedure [facility]-Laboratory, [place] Work Phone: Start: 11-14-2022 End: 11-14-2022 Patient encounter procedure Adriane Rodriguez 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 Work Phone: [facility] Comment on above: Urinary frequency (P rimary Dx); Muscle spasm; Urinary urgency Start: 11-12-2022 Telephone encounter Serjio peterson MD Work Phone: [facility] Comment on above: Physical Therapy Start: 11-09-2022 End: 01-27-[address] RUDY BRANCH DO Facility:B Start: 11-06-2022 End: 11-06-[address] Rudy Branch Work Phone: [facility] Work Phone: Start: 11-06-2022 End: 11-06-2022 Patient encounter procedure [facility]Laboratory Work Phone: Start: 10-28-2022 End: 10-28-2022 ambulatory [facility] Work Phone: Start: 10-28-2022 End: 10-28-2022 Patient encounter procedure [facility]-Nuclear Medicine, [facility] Work Phone: Start: 10-21-2022 End: 10-21-2022 ambulatory [facility] Work Phone: Start: 10-21-2022 End: 10-21-2022 Patient encounter procedure [facility] Work Phone: Start: 10-20-2022 End: 10-20-2022 ambulatory RUDY BRANCH Facility:[facility] Start: 10-09-2022 ambulatory Lilia Blackwood Work Phone: Dermatology Comment on above: Prior authorization Start: 10-08-2022 Refill Lilia Herrera-Juan Work Phone: Dermatology Comment on above: Refill Request Start: 10-06-[address] Rudy Branch Facility[facility] Start: 10-05-2022 End: 10-05-2022 ambulatory [facility] Work Phone: Start: 10-05-2022 End: 10-05-2022 Patient encounter procedure [facility]-Laboratory, [place] Work Phone: Start: 10-01-2022 End: 10-01-2022 Patient encounter procedure [facility]-Radiology, [facility] Work Phone: Start: 09-30-2022 Telephone encounter [facility] Provider Jesus mckoy Comment on above: Appointment Start: 09-23-[address] Marie Styles Facility:[id number] Start: 09-13-2022 Refill Travis Bernard Work Phone: Dermatology Comment on above: Refill Request Start: 09-11-2022 End: 09-11-2022 Patient encounter procedure Lilia Laurent PA-C Work Phone: Dermatology Comment on above: Hidradenitis suppura tiva (Primary Dx); Acne excoriee Start: 09-10-2022 Telephone encounter Sivan hsu MD Work Phone: Endocrinology Comment on above: vv prep Start: 09-08-2022 ambulatory Travis Bernard Work Phone: Dermatology Comment on above: hidradenitis suppura tiva Start: 09-02-2022 Telephone encounter Sivan hsu MD Work Phone: Endocrinology Comment on above: vv prep Start: 08-12-2022 Telephone encounter Wilmar Davis MD Work Phone: [facility] Gynecologic Oncology Comment on above: surgery scheduling ( LVM to schedule surgery) Start: 07-31-2022 End: 07-31-2022 Emergency department patient visit Dr. Rudy Branch Work Phone: [facility]-Emergency Department Start: 07-30-2022 End: 07-30-2022 Subsequent hospital visit by physician [facility] Work Phone: Radiology Comment on above: Kidney stone [N20.0] Start: 07-30-2022 End: 07-30-[address] Rudy Branch Work Phone: [facility] Work Phone: Start: 07-30-2022 End: 07-30-[address] Rudy Branch Work Phone: [facility]-Laboratory Start: 07-29-2022 End: 07-29-[address] Rudy Branch Work Phone: [facility] Work Phone: Start: 07-29-2022 End: 07-29-[address] Rudy Branch Work Phone: [facility]-Laboratory Start: 06-11-2022 Refill Travis Bernard Work Phone: Dermatology Comment on above: Refill Request Start: 06-09-2022 End: 06-09-[address] Rudy Branch Work Phone: [facility] Work Phone: Start: 06-09-2022 End: 06-09-[address] Rudy Branch Work Phone: [facility] Start: 05-29-2022 End: 05-29-[address] Rudy Branch Work Phone: [facility] Work Phone: Start: 05-29-2022 End: 05-29-[address] [facility] Start: 05-27-2022 End: 05-27-[address] Rudy Branch Work Phone: [facility] Start: 05-25-2022 End: 05-25-[address] Rudy Branch Work Phone: [facility] Start: 05-19-2022 End: 05-19-2022 ambulatory Travis Martinez MD Work Phone: Dermatology Comment on above: Adult acne (Primary Dx) Start: 05-19-2022 End: 05-19-2022 Telemedicine consultation with patient Travis Martinez MD Work Phone: [facility] Start: 05-06-2022 Telephone encounter Wilmar Davis MD Work Phone: [facility] [place] PERFORATOR OPERATOR Oncology Comment on above: Other Start: 05-04-2022 End: 05-04-2022 ambulatory WILMAR DAVIS [facility] Start: 05-04-2022 End: 05-04-2022 Office outpatient visit 25 minutes Wilmar Davis MD Work Phone: [facility] PERFORATOR OPERATOR Oncology Comment on above: 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 Rudy Branch Work Phone: [facility]-Emergency Department Start: 04-21-2022 Manual pelvic examination Ofelia Megan MCKEENAlessandra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 Work Phone: Gynecology Oncology Comment on above: S/P laparoscopic hys terectomy (Primary Dx); History of endometriosis; Pelvic pain in female; Abnormality present on gross pathology; S/P ovarian cystectomy Start: 04-21-2022 Telephone encounter Kellen allen MD Work Phone: Gynecology Oncology Comment on above: Results Start: 04-20-2022 ambulatory Ginette Barber MD Work Phone: Gynecology Comment on above: PERFORATOR OPERATOR ONC Tumor Board Start: 04-17-2022 End: 04-17-[address] Rudy Branch Work Phone: [facility] Work Phone: Start: 04-17-2022 End: 04-17-[address] Rudy Branch Work Phone: [facility]-Laboratory, [place] [facility] Start: 04-14-2022 ambulatory Travis Bernard Work Phone: Dermatology Comment on above: Skin issue, persiste nt Start: 04-10-2022 End: 04-10-[address] Rudy Branch Work Phone: [facility] Start: 04-07-2022 End: 04-08-2022 Manual pelvic examination Kellen Mayorga MD Work Phone: Gynecology Oncology Comment on above: Abnormality present on gross pathology (Primary Dx); History of endometriosis; History of PCOS; S/P laparoscopic hysterectomy; S/P ovarian cystectomy; History of salpingectomy; History of left salpingo-oophorectomy; Vaginal bleeding; Pelvic pain in female Start: 04-07-2022 End: 04-08-2022 Patient encounter procedure Kellen Mayorga MD Work Phone: [facility] Start: 04-07-2022 ambulatory Rudy Boyce MD Work Phone: Urology Start: 04-07-2022 Telephone encounter Hellen Thomas DO Work Phone: Gynecology Comment on above: Vaginal Bleeding Start: 03-26-2022 End: 03-26-2022 Subsequent hospital visit by physician Ct [address] Main Qb (I-Stat) Radiology Comment on above: 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 Rudy Branch Work Phone: [facility]-Emergency Department Start: 03-02-2022 End: 03-02-2022 ambulatory Mariely Ruggiero MD Work Phone: Gynecology Comment on above: Elevated testosteron e level (Primary Dx) Start: 03-02-2022 End: 03-02-2022 Telemedicine consultation with patient Mariely Ruggiero MD Work Phone: [facility] Start: 02-24-2022 End: 02-24-2022 ambulatory Lluvia Jb DESIGNER.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 Work Phone: Gynecology Comment on above: Post-operative state (Primary Dx); Post-op pain Start: 02-24-2022 End: 02-24-2022 Telemedicine consultation with patient Lluvia Muhammad DESIGNER.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 Work Phone: [facility] Start: 02-23-2022 End: 02-23-[address] Rudy Branch Work Phone: [facility] Work Phone: Start: 02-23-2022 End: 02-23-[address] Rudy Branch Work Phone: [facility]-Laboratory, Specimen Start: 02-12-2022 Admission [facility] Hellen Thomas DO Work Phone: Gynecology Comment on above: Surgery 02/10 Start: 02-12-2022 ambulatory Hellen Thomas DO Work Phone: [facility] Start: 02-09-2022 End: 02-09-2022 Manual pelvic examination Harley Alvarado DO Work Phone: Colorectal Surgery Comment on above: Endometriosis (Prima ry Dx); Pelvic pain in female Start: 02-09-2022 End: 02-09-2022 Telemedicine consultation with patient Harley Alvarado DO Work Phone: [facility] Start: 02-09-2022 Telephone encounter Hellen Thomas DO Work Phone: [facility] Comment on above: Vaginal Bleeding; pr e op question Start: 02-06-2022 Telephone encounter Sigrid Kiran APRN.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 Work Phone: Pre Anesthesia Comment on above: Received Outside Med [facility] Records Start: 01-26-2022 End: 01-26-2022 Patient encounter procedure Hellen Thomas DO Work Phone: Gynecology Comment on above: Pre-op evaluation (P rimary Dx) Start: 01-26-2022 End: 01-26-2022 Preprocedural examination done Hellen Thomas DO Work Phone: Gynecology Start: 12-31-2021 End: 12-31-2021 Patient encounter procedure Travis Martinez MD Work Phone: Dermatology Comment on above: Acne vulgaris (Prima ry Dx); Seborrheic keratosis Start: 12-25-2021 ambulatory [facility] Start: 12-23-2021 [facility] Hellen Thomas DO Work Phone: Gynecology Comment on above: Surgery Start: 12-23-2021 ambulatory Hellen Thomas DO Work Phone: [facility] Start: 12-16-2021 ambulatory Rudy [facility] Start: 12-12-2021 End: 12-12-2021 ambulatory Hellen Thomas DO Work Phone: Gynecology Comment on above: Endometriosis (Prima ry Dx) Start: 12-12-2021 End: 12-12-2021 Telemedicine consultation with patient Hellen Collado Phone: [facility] Start: 12-08-2021 Admission to [facility] Hellen Collado Phone: Gynecology Comment on above: Surgery Start: 12-08-2021 ambulatory Hellen Collado Phone: [facility] Start: 12-03-2021 End: 12-04-2021 Emergency department patient [facility] Rudy [facility] Start: 12-03-2021 End: 12-03-[address] Rudy Branch Work Phone: [facility] Start: 11-26-2021 Admission to [facility] Provider [facility] Comment on above: SCHEDULE SURGERY Start: 11-26-2021 E-mail encounter fro m caregiver [facility] Provider [facility] Start: 11-20-2021 End: 11-20-[address] Rudy Branch Work Phone: [facility] Gastroenterology Start: 11-11-2021 Telephone encounter Hellen Collado Phone: Gynecology Comment on above: Schedule Surgery Start: 11-10-2021 End: 11-10-[address] Rudy Branch Work Phone: [facility] Start: 10-24-2021 End: 10-24-[address] Rud[facility] Start: 10-22-2021 End: 10-22-[address] Rudy Branch Work Phone: [facility] Start: 10-22-2021 End: 10-22-[address] Rudy Branch Work Phone: [facility] Gastroenterology Start: 10-20-2021 ambulatory Hellen Thomas DO Work Phone: Gynecology Comment on above: Surgical schedule Start: 10-10-2021 End: 10-10-2021 Patient encounter procedure Harley Alvarado DO Work Phone: Colorectal Surgery Comment on above: Bloody diarrhea (Maye aston Dx); Endometriosis; Pelvic pain in female Start: 10-02-2021 End: 10-02-2021 ambulatory Saulo MejiaMagnolia Work Phone: Allergy and Immunology Comment on above: Spirometry Start: 10-02-2021 End: 10-02-2021 Patient encounter procedure Saulo Mejiaimfield Work Phone: [facility] Start: 10-02-2021 End: 10-02-2021 Patient encounter procedure Karen Doshi MD Work Phone: Allergy and Immunology Comment on above: Chronic rhinitis (Pr imary Dx); Seasonal allergies; Allergic conjunctivitis, bilateral; Anaphylaxis due to hymenoptera venom, accidental or unintentional, initial encounter; Allergic urticaria; Allergy to cephalosporin; Mild persistent asthma, unspecified whether complicated; Latex allergy status; Nasal turbinate hypertrophy Start: 10-01-2021 Telephone encounter Travis powell MD Work Phone: Dermatology Comment on above: Insurance Authorizat ion (tacrolimus 0.1% ointment) Start: 09-30-2021 End: 09-30-2021 Patient encounter procedure Travis Martinez MD Work Phone: Dermatology Comment on above: Seasonal allergies ( Primary Dx); Folliculitis; Dermatitis Start: 09-08-2021 End: 09-08-2021 Patient encounter procedure Hellen Thomas DO Work Phone: Gynecology Comment on above: Endometriosis (Prima ry Dx); Pelvic pain in female; Preop examination Start: 09-08-2021 End: 09-08-2021 Preprocedural examination done Hellen Thomas DO Work Phone: Gynecology Start: 09-02-2021 End: 09-02-[address] Rudy Branch Work Phone: [facility] Neurology Start: 08-28-2021 ambulatory Stef farias PA-C Work Phone: Telemedicine Comment on above: Treatment not availa ble (Primary Dx) Start: 08-28-2021 End: 08-28-[address] Rudy Branch Work Phone: [facility] Start: 08-15-2021 End: 08-15-[address] Rudy Branch Work Phone: [facility] Start: 08-15-2021 End: 08-15-[address] Rudy Branch Work Phone: [facility] Start: 08-01-2021 ambulatory Hellen Thomas Work Phone: Gynecology Comment on above: Question regarding M RI FEMALE PELVIS WO/W IVCON Start: 07-25-2021 End: 07-25-2021 Emergency department patient visit ENRIKE MARIE MD [facility] Start: 07-14-2021 E-mail encounter fro m caregiver Joellen Yoder APRN.CNP Work Phone: [facility] Start: 07-14-2021 End: 07-14-2021 Patient encounter procedure Joellen Yoder APRN.CNP Work Phone: Dermatology Comment on above: Today's Appointment Rash and nonspecific skin eruption (Primary Dx); Hair loss; Folliculitis; Erythema intertrigo Start: 06-26-2021 End: 06-26-2021 Manual pelvic examination Hellen William Work Phone: Gynecology Comment on above: Pelvic pain in femal e (Primary Dx); Endometriosis; Spastic pelvic floor syndrome Start: 06-26-2021 End: 06-26-2021 Telemedicine consultation with patient Hellen Thomas DO Work Phone: [facility] Start: 06-20-2021 End: 06-20-[address] Rudy Branch Work Phone: [facility] Start: 06-09-2021 Non-patient / Non-visit Dr. Krzysztof Branch Work Phone: [facility] Start: 06-09-2021 End: 06-09-[address] Rudy Branch Work Phone: [facility] Start: 05-19-2021 End: 05-19-[address] Rudy Branch Work Phone: [facility] Start: 05-16-2021 End: 05-16-[address] Rudy Branch Work Phone: [facility] Gastroenterology Start: 05-15-2021 End: 05-15-[address] Rudy Branch Work Phone: [facility] Start: 05-04-2021 End: 05-04-2021 Emergency department patient visit Dr. Rudy Branch Work Phone: [facility] Start: 05-04-2021 End: 05-04-2021 Emergency department patient visit WILMAR WILLIAMSON DO [facility] Start: 04-28-2021 End: 04-28-[address] Rudy Branch Work Phone: [facility], Specimen Start: 04-22-2021 End: 04-22-[address] Rudy Branch Work Phone: [facility] Neurology Start: 04-18-2021 End: 04-18-[address] Rudy Branch Work Phone: [facility] Gastroenter[facility] Start: 04-14-2021 FUV, Provider: Mag Gonzales, Status: Shabbir, Time: 8:30 AM Rudy Howardman Work Phone: [email or web address] Work Phone: Start: 04-13-2021 AUDIT Rudy Herrera Stlaurenma n Work Phone: [facility] Work Phone: Start: 03-20-2021 End: 03-20-[address] Rudy Branch Work Phone: [facility] Gastroenterology Start: 03-03-2021 Chart Update Rudy Howardma n Work Phone: [id number] Work Phone: Start: 01-02-2021 Office consultation new/estab patient 60 min Rudy Herediautzman Work Phone: [id number] Work Phone: Start: 01-02-2021 Patient encounter procedure Rudy Herediautzman Work Phone: [id number] [place] Work Phone: Start: 12-13-2020 AUDIT Rudy Herrera Stlaurenma n Work Phone: [email or web address] Work Phone: Start: 12-11-2020 FUV, Provider: Mag Gonzales, Status: Shabbir, Time: 7:45 AM Rudy Howardman Work Phone: [email or web address] Work Phone: Start: 12-11-2020 Office outpatient vi sit 25 minutes Rudy Howardman Work Phone: [email or web address] Work Phone: Start: 12-10-2020 AUDIT Rudy A Stutzma n Work Phone: [facility] Work Phone: Start: 11-19-2020 AUDIT Rudy Ingram n Work Phone: [facility] Work Phone: Start: 11-12-2020 Office outpatient ne w 45 minutes Rudy Branch Work Phone: [id number] DO Work Phone: Start: 02-15-2019 End: 02-15-2019 Subsequent hospital visit by physician Gumaro Blankenship Work Phone: [facility] General Surgery Comment on above: Post-op pain (Primar y Dx) Start: 02-08-2019 End: 02-08-2019 Subsequent hospital visit by physician Gumaro Blankenship Work Phone: [facility] Pre-Admit Testing Comment on above: Arrived Start: 12-16-2017 End: 12-16-2017 Patient encounter [place] (PT) [facility] Start: 09-17-2017 Patient encounter Laquita Bedolla [facility] lity:[facility] Start: 08-19-2017 Ambulatory Ora Jin [facility] lity:[facility] Start: 04-26-2017 Ambulatory [facility] Facility:[facility] Start: 03-12-2017 Ambulatory [facility] Facility:[facility] Start: 10-22-2016 Gynecologic examination Colleen Dale CORE MOUNTER Work Phone: [facility] Work Phone: Start: 09-26-2008 End: 11-21-2011 Patient encounter status [facility] Start: 08-01-2008 End: 11-21-2011 Patient encounter status Xr [facility] Work Phone: Procedures Date Procedure Procedure Detail Performing Clinician Start: 09-22-2024 Urnls dip stick/tablet rgnt auto w/o microscopy Lizet Swank DESIGNER.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 Work Phone: Start: 09-08-2024 Fol[address]le stimulating hormone measurement Dr. Rudy Branch DO Work Phone: Comment on above: FEMALE:Follicular: 1.4 - 18.1 mIU/mLMidc ycle: 3.4 - 33.4 mIU/mLLuteal: 1.5 - 9.1 mIU/mLPost Menopause: 23.0 - 116.3 mIU/mLMALE: 1.4 - 18.1 mIU/mL Start: 09-08-[address] Rudy Branch DO Work Phone: Start: 09-08-[address] Rudy Branch DO Work Phone: Comment on above: Test Ordered: [id number] Adalimumab Drug + A ntibodyAdalimumab Drug Level 6.8 ug/mL ES Reference Range: .Quantitation Limit: <0.6 ug/mLResults of 0.6 or higher indicate detection of adalimumab.Comments: - The optimal drug concentration depends upon patient- specific factors including the disease and desired therapeutic endpoint. - Maintenance trough concentrations >=7.5 may correspond to higher remission rates.(1) - Mucosal healing may be more likely in patients with maintenance trough levels >8.14.(2) - In rheumatoid arthritis, trough levels of 5-8 are associated with clinical (EULAR) response.(3) - This assay measures the antibody-unbound (free) fraction of adalimumab when serum anti-adalimumab antibodies are present.Anti-Adalimumab Antibody <25 ng/mL ES Reference Range: . Interpretation: The above result is an UNDETECTED Antibody titer Quantitation Limit: <25 ng/mL. Results of 25 or higher indicate detection of anti- adalimumab antibodies. 25 - 100 ng/mL: LOW titer 101 - 300 ng/mL: INTERMEDIATE titer 301 or greater ng/mL: HIGH titerComments: - Anti-drug antibody levels should be interpreted in the context of the concomitant free drug trough concentration. - Low anti-drug antibodies may be transient while high titers are likely to be more consequential.(4-6) - Some immunogenicity is reversible. Elimination of intermediate titer (and even some high titer) anti-adalimumab antibodies has been achieved with dose escalation and/or methotrexate or 6-MP.(7) - This anti-adalimumab antibody assay is drug tolerant, and all positive results are verified for anti-drug specificity by a confirmatory test.References:1. Deniz Do, et al. AGA Review on TDM in IBD. Gastroenterol 2017;153:835-857.2. Delma E, et al. J Crohns Col 2016;10(5):510-515.3. Rosalio MF, et al. [facility]juanita Rheum Dis 2015;74:513-518.4. Sharis GM, et al. ADRIAN 2011;305(14):8048-8832.5. Johnny C, et al. J Clin Gastroenterol 2016; 50:482-489.6. Yanai H, et al. Clin Gastroenterol Hepatol 2015; 13(3):522-530.7. Jai A, et al. Gastroenterol 2019;156(6):S-617.These tests were developed and their performancecharacteristics determined by [employer]. They have not beencleared or approved by the Food and Drug Administration.However, these electrochemiluminescence immunoassay (ECLIA)measurements of adalimumab and anti-adalimumab antibody(constituting DoseASSURE ADL) have been developed andvalidated in accordance with CLIA (Clinical LaboratoryImprovement Amendments) and the FDA Guidance document, AssayDevelopment and Validation for Immunogenicity Testing ofTherapeutic Protein Products (2019).Performed at: [facility] [address] [id number] Director: Magdi Brock MD, Phone: [phone] at: [facility] [id number] Director: El Case PhD, Phone: [phone] Start: 07-19-2024 X-ray of chest, PA and lateral views Dr. Rudy Branch DO Work Phone: Start: 07-16-2024 X-ray of chest, PA and lateral views Dr. Rudy Branch DO Work Phone: Start: 07-16-2024 Blood count smear mcrscp w/mnl difrntl wbc count Dr. Rudy Branch DO Work Phone: Start: 07-16-[address] Rudy Branch DO Work Phone: Start: 07-16-2024 Mean corpuscular hemoglobin concentration determination Dr. Rudy Branch DO Work Phone: Start: 07-16-2024 Nucleated red blood cell count procedure Dr. Rudy Branch DO Work Phone: Start: 07-16-2024 Platelet mean volume determination Dr. Rudy Branch DO Work Phone: Start: 07-16-2024 SARS-CoV-2, Influenza & RSV (PCR) Dr. Krzysztof Branch DO Work Phone: Start: 07-16-2024 Dr. Rudy Branch DO Work Phone: Start: 07-10-2024 Hemoglobin glycosylated a1c Annemarie Lau [facility]WR[facility] Work Phone: Start: 06-27-[address] Rudy Branch DO Work Phone: Start: 06-08-2024 Antibody to extractable nuclear antigen measurement Dr. Rudy Branch DO Work Phone: Comment on above: Previous reported result: TNP AIEdited b y: INFCE on 06/12/24:1307 AMENDED REPORT 06/12/24 1307 NICOLE Ab previously reported as: Test not performed Start: 06-08-[address] Rudy Branch DO Work Phone: Start: 06-08-[address] Rudy Branch DO Work Phone: Start: 06-08-2024 Serum inorganic phosphate measurement Dr. Rudy Branch DO Work Phone: Start: 06-08-2024 24 hour urine chloride output Dr. Rudy eddy DO Work Phone: Start: 06-08-2024 24 hour urine potassium output measurement Dr. Rudy Branch DO Work Phone: Start: 06-08-2024 Chloride measurement, urine Dr. Rudy ji DO Work Phone: Start: 06-08-[address] Rudy Branch DO Work Phone: Start: 06-05-[address] Rudy Branch DO Work Phone: Start: 06-05-2024 Follow-up visit Follow-up NICK MCMANUS Start: 05-30-2024 CT of abdomen and pelvis without contrast Dr. Rudy Branch DO Work Phone: Start: 05-30-2024 Urine microscopy: red cells Dr. Rudy ji DO Work Phone: Start: 05-30-2024 Urnls dip stick/tablet reagent auto microscopy Dr. Rudy Branch DO Work Phone: Start: 05-30-2024 Blood count smear mcrscp w/mnl difrntl wbc count Dr. Rudy Branch DO Work Phone: Start: 05-30-[address] Rudy Branch DO Work Phone: Start: 05-30-2024 Mean corpuscular hemoglobin concentration determination Dr. Rudy Branch DO Work Phone: Start: 05-30-2024 Nucleated red blood cell count procedure Dr. Rudy Branch DO Work Phone: Start: 05-30-2024 Platelet mean volume determination Dr. Rudy Branch DO Work Phone: Start: 05-29-2024 Blood count smear mcrscp w/mnl difrntl wbc count Dr. Rudy Branch DO Work Phone: Start: 05-29-2024 Mean corpuscular hemoglobin concentration determination Dr. Rudy Branch DO Work Phone: Start: 05-29-2024 Nucleated red blood cell count procedure Dr. Rudy Branch DO Work Phone: Start: 05-29-2024 Platelet mean volume determination Dr. Rudy Branch DO Work Phone: Start: 04-27-[address] Rudy Branch DO Work Phone: Start: 04-27-2024 Urnls dip stick/tablet reagent auto microscopy Dr. Rudy Branch DO Work Phone: Start: 04-27-2024 X-ray of lumbosacral spine Dr. Rudy zavala DO Work Phone: Start: 04-18-2024 Albumin/Globulin ratio Dr. Rudy Branch DO Work Phone: Start: 04-18-[address] Rudy Branch DO Work Phone: Start: 04-18-2024 Blood count smear mcrscp w/mnl difrntl wbc count Dr. Rudy Branch DO Work Phone: Start: 04-18-2024 BUN/Creatinine ratio Dr. Rudy Branch DO Work Phone: Start: 04-18-2024 Mean corpuscular hemoglobin concentration determination Dr. Rudy Branch DO Work Phone: Start: 04-18-2024 Measurement of renal function Dr. Rudy eddy DO Work Phone: Start: 04-18-2024 Nucleated red blood cell count procedure Dr. Rudy Branch DO Work Phone: Start: 04-18-2024 Platelet mean volume determination Dr. Rudy Branch DO Work Phone: Start: 03-03-[address] Rudy Branch DO Work Phone: Start: 01-17-2024 EXTRA MICRO Nick Mcmanus DO Work Phone: Start: 01-17-2024 URINALYSIS REFLEX TO CULTURE Nick landry DO Work Phone: Start: 01-17-2024 Urnls dip stick/tablet reagent auto microscopy Nick Mcmanus DO Work Phone: Start: 11-05-2023 Follow-up visit Follow-up CANELO PINA Start: 08-06-2023 MR PELVIS W AND WO IV CONTRAST CANELO COVARRUBIAS Start: 07-15-[address] Rudy Branch Work Phone: Start: 06-17-2023 Computed tomography of abdomen and pelvis with contrast Dr. Rudy Branch Work Phone: Start: 06-02-2023 Mri lower extrem oth/thn jt w/o contr matrl Ky Ford MD Work Phone: Start: 05-25-2023 Bacteria identified in Urine by Culture CANELO PINA Start: 05-25-2023 URINALYSIS WITH REFLEX MICROSCOPIC CANELO PINA Start: 05-24-[address] Rudy Branch Work Phone: Start: 05-07-2023 CT UROGRAPHY WITH 3D VOLUME RENDERED IMAGING ROSSY LAINEZ Start: 04-21-2023 AMB REFERRAL TO GASTROENTEROLOGY THEA HERNANDEZ Start: 04-15-2023 POCT UA AUTOMATED MANUALLY RESULTED THEA HERNANDEZ Start: 04-15-2023 POST-VOID RESIDUAL THEA HERNANDEZ Start: 04-15-2023 End: 04-15-2023 Urnls dip stick/tablet rgnt auto w/o microscopy Rossy Lainez DESIGNER-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 Work Phone: Start: 04-08-2023 US RENAL COMPLETE CANELO PINA Start: 04-06-2023 LAVENDER TOP RUDY BRANCH Start: 04-06-2023 CANCER ANTIGEN 125 RUDY BRANCH Start: 04-06-2023 Bacteria identified in Urine by Culture CANELO PINA Start: 03-13-2023 Plain chest X-ray Dr. Rudy Branch Work Phone: Start: 02-25-2023 End: 02-25-2023 Mri spinal canal cervical w/o contrast matrl Serjio Thompson MD Work Phone: Start: 02-01-2023 Us transvaginal Ofelia Lambrinides DESIGNER.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 Work Phone: Start: 01-05-2023 Radiologic exam knee complete 4/more views Ky Ford MD Work Phone: Start: 01-02-2023 MRI of lower extremity Dr. Rudy Branch Work Phone: Start: 12-31-2022 Urnls dip stick/tablet rgnt auto w/o microscopy Tamika Mendoza DESIGNER.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 Work Phone: Start: 11-26-2022 Diagnostic radiography of abdomen Start: 11-23-2022 Urine culture Start: 11-14-2022 Urnls dip stick/tablet rgnt auto w/o microscopy Adriane Rodriguez DESIGNER.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 Work Phone: Start: 10-28-2022 Radionuclide gastric emptying study Start: 10-01-2022 Diagnostic radiography of abdomen Start: 07-31-2022 Plain x-ray of hand Dr. Rudy Branch Work Phone: Start: 07-30-2022 Us retroperitoneal real time w/image complete Selin Arellano DESIGNER.[facility] Work Phone: Start: 07-30-2022 Ova OR parasites identification Start: 06-09-[address] Rudy Branch Work Phone: Start: 05-29-[address] Rudy zavala Work Phone: Start: 05-04-2022 Follow-up visit Follow-up WILMAR DAVIS Start: 04-25-2022 Plain chest X-ray Dr. Rudy Branch Work Phone: Start: 04-25-2022 CT of abdomen and pelvis without contrast Dr. Rudy Branch Work Phone: Start: 04-25-2022 CT of head without contrast Dr. Rudy ji Work Phone: Start: 03-26-2022 Ct abdomen & pelvis w/contrast material Brandee Ramos DESIGNER.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 Work Phone: Start: 03-26-2022 Ct thorax w/contrast material Brandee hairston DESIGNER.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 Work Phone: Start: 03-06-2022 CT of abdomen and pelvis without contrast Dr. Rudy Branch Work Phone: Start: 12-03-2021 Computed tomography of abdomen and pelvis with intravenous contrast Dr. Rudy Branch Work Phone: Start: 12-03-[address] Rudy Ingram n Work Phone: Start: 10-02-2021 ALLERGEN SKIN TEST-INHALENT 40 Karen kunz MD Work Phone: Start: 10-02-2021 Allg test perq & ic drug/biol immed react w/i&r Karen Doshi MD Work Phone: Start: 10-02-2021 Nitric oxide gas determination Karen Doshi MD Work Phone: Start: 10-02-2021 Spmtry w/vc expiratory mary w/wo mxml vol vntj Karen Doshi MD Work Phone: Start: 09-08-2021 PT ED OBSTETRICS & GYNECOLOGY Hellen Thomas DO Work Phone: Start: 08-15-2021 Investigation of transfusion reaction Dr. Rudy Branch Work Phone: Start: 08-15-2021 End: 08-15-2021 Microbial culture, routine Dr. Rudy zavala Work Phone: Start: 06-20-2021 Computed tomography of abdomen and pelvis with contrast Dr. Rudy Branch Work Phone: Start: 05-04-2021 Plain chest X-ray Dr. Rudy Branch Work Phone: Start: 08-28-2020 Adult depression screening assessment Hellen Thomas DO Work Phone: Start: 08-13-2020 History of cholecystectomy Status post cholecystectomy Hellen Thomas DO Work Phone: Start: 03-29-2019 H/O: surgery H/O dilation and curettage Dr. Rudy Branch Work Phone: Comment on above: pelvic congestion Start: 03-29-2019 History of cholecystectomy Hx laparoscopic cholecystectomy Dr. Rudy Branch Work Phone: Start: 02-15-2019 OPERATIVE REPORT 3m Scanning Start: 02-15-2019 Colonoscopy 3m Scanning Start: 02-15-2019 Urine test visual color cmprsn meths Magdi Davis Work Phone: Start: 02-08-2019 Basic metabolic panel calcium total Sushila R Kyle Work Phone: Start: 02-08-2019 Blood count hemoglobin Sushila R [place] Work Phone: Start: 01-18-2017 End: 01-18-2017 Documentation of current medications Mayela Tyler LPN Start: 12-18-2016 End: 12-18-2016 Documentation of current medications Mia Meehan MD Work Phone: Start: 11-26-2016 End: 11-26-2016 Documentation of current medications Mia Meehan MD Work Phone: Start: 11-19-2016 End: 12-03-2016 *UA - Urinalysis w/o Micro Adarsh BLANTON Work Phone: Start: 11-19-2016 End: 11-19-2016 Ketorolac Tromethamine 30 mg/ml Soln Adarsh BLANTON Work Phone: Start: 11-19-2016 End: 11-19-2016 Promethazine (Phenergan) <=50 mg Adasrh BLANTON Work Phone: Start: 11-19-2016 End: 11-19-2016 [...] 11-19-2016 Documentation of current medications Canelo Rogers LPN Work Phone: Start: 11-19-2016 End: 11-19-2016 Urinalysis Canelo Rogers LPN Work Phone: Start: 11-19-2016 End: 12-03-2016 *UA - Urinalysis w/o Micro Adarsh BLANTON Work Phone: Start: 11-19-2016 End: 11-19-2016 Ketorolac tromethamine inj Adarsh BLANTON Work Phone: Start: 11-19-2016 End: 11-19-2016 Therapeutic prophylactic/dx injection subq/im Adarsh BLANTON Work Phone: Start: 11-19-2016 End: 11-19-2016 Urnls dip stick/tablet rgnt non-auto w/o micrscp Adarsh BLANTON Work Phone: Start: 11-03-2016 End: 11-11-2016 Corticotropin [Mass/volume] in Plasma Colleen Dale NP Work Phone: Start: 11-03-2016 End: 11-09-2016 Cortisol [Mass/volume] in Serum or Plasma Colleen Dale NP Work Phone: Start: 11-03-2016 End: 11-09-2016 Thyrotropin [Units/volume] in Serum or Plasma Colleen Dale NP Work Phone: Start: 11-03-2016 End: 11-09-2016 Thyroxine (T4) free [Mass/volume] in Serum or Plasma Colleen Dale NP Work Phone: Start: 11-03-2016 End: 11-09-2016 Triiodothyronine (T3) Free [Mass/volume] in Serum or Plasma Colleen Dale CORE MOUNTER Work Phone: Start: 11-03-2016 End: 11-11-2016 Corticotropin [Mass/volume] in Plasma Colleen Dale CORE MOUNTER Work Phone: Start: 11-03-2016 End: 11-09-2016 Cortisol [Mass/volume] in Serum or Plasma Colleen Dale CORE MOUNTER Work Phone: Start: 11-03-2016 End: 11-09-2016 Thyrotropin [Units/volume] in Serum or Plasma Colleen Dale CORE MOUNTER Work Phone: Start: 11-03-2016 End: 11-09-2016 Thyroxine (T4) free [Mass/volume] in Serum or Plasma Colleen Dale CORE MOUNTER Work Phone: Start: 11-03-2016 End: 11-09-2016 Triiodothyronine (T3) Free [Mass/volume] in Serum or Plasma Colleen Dale CORE MOUNTER Work Phone: Start: 10-22-2016 End: 10-22-2016 Documentation of current medications Colleen Dale NP Work Phone: Start: 10-22-2016 Screening for malignant neoplasm of cervix Screening for cervical cancer Colleen Dale NP Work Phone: Start: 10-02-2016 End: 10-02-2016 Documentation of current medications Canelo Rogers LPN Work Phone: Start: 08-05-2016 End: 08-05-2016 Thyrotropin [Units/volume] in Serum or Plasma Colleen Dale CORE MOUNTER Work Phone: Start: 08-05-2016 End: 08-05-2016 Thyroxine (T4) free [Mass/volume] in Serum or Plasma Colleen Dale CORE MOUNTER Work Phone: Start: 08-05-2016 End: 08-05-2016 Triiodothyronine (T3) Free [Mass/volume] in Serum or Plasma Colleen Dale CORE MOUNTER Work Phone: Start: 08-05-2016 End: 08-05-2016 Documentation of current medications Colleen Dale NP Work Phone: Start: 08-05-2016 End: 08-05-2016 Thyrotropin [Units/volume] in Serum or Plasma Colleen Dale NP Work Phone: Start: 08-05-2016 End: 08-05-2016 Thyroxine (T4) free [Mass/volume] in Serum or Plasma Colleen Dale CORE MOUNTER Work Phone: Start: 08-05-2016 End: 08-05-2016 Triiodothyronine (T3) Free [Mass/volume] in Serum or Plasma Colleen Dale NP Work Phone: Start: 10-23-2015 End: 10-23-2015 *CBC with Differential Rudy Branch DO Work Phone: Start: 10-23-2015 End: 10-23-2015 *CMP Complete Metabolic Panel Rudy ji DO Work Phone: Start: 10-23-2015 End: 10-23-2015 C reactive protein [Mass/volume] in Serum or Plasma by High sensitivity method Rudy Branch DO Work Phone: Start: 10-23-2015 End: 10-23-2015 Erythrocyte sedimentation rate Rudy Daugherty DO Work Phone: Start: 10-23-2015 End: 10-23-2015 Gamma glutamyl transferase [Enzymatic activity/volume] in Serum or Plasma Rudy Branch DO Work Phone: Start: 10-23-2015 End: 10-23-2015 Lipase [Enzymatic activity/volume] in Serum or Plasma Rudy Branch DO Work Phone: Start: 10-23-2015 End: 10-23-2015 *CMP Complete Metabolic Panel Rudy ji DO Work Phone: Start: 10-23-2015 End: 10-23-2015 C reactive protein [Mass/volume] in Serum or Plasma by High sensitivity method Rudy Branch DO Work Phone: Start: 10-23-2015 End: 10-23-2015 CBC W Auto Differential panel - Blood Rudy Branch DO Work Phone: Start: 10-23-2015 End: 10-23-2015 Erythrocyte sedimentation rate Rudy Daugherty DO Work Phone: Start: 10-23-2015 End: 10-23-2015 Gamma glutamyl transferase [Enzymatic activity/volume] in Serum or Plasma Rudy Branch DO Work Phone: Start: 10-23-2015 End: 10-23-2015 Lipase [Enzymatic activity/volume] in Serum or Plasma Rudy Branch DO Work Phone: Start: 10-09-2015 End: 10-08-2016 Occupational therapy Rudy Branch DO Work Phone: Start: 10-09-2015 End: 10-09-2015 Documentation of current medications Colleen Dale NP Work Phone: Start: 10-09-2015 End: 10-08-2016 Occupational therapy Rudy Branch DO Work Phone: Start: 07-17-2015 End: 07-23-2015 Mycobacterium tuberculosis tuberculin stimulated gamma interferon [Presence] in Blood Moniquelinette Nicole MD Start: 07-17-2015 End: 07-23-2015 Mycobacterium tuberculosis tuberculin stimulated gamma interferon [Presence] in Blood Moniquelinette Nicole MD Start: 06-26-2015 End: 06-27-2015 *HIV antibody Rudy Branch DO Work Phone: Start: 06-26-2015 End: 06-27-2015 *HIV antibody Rudy Branch DO Work Phone: Start: 04-06-2015 End: 04-06-2015 Urinalysis Colleen Dale NP Work Phone: Start: 01-09-2015 End: 01-10-2015 C reactive protein [Mass/volume] in Serum or Plasma by High sensitivity method Rudy Branch DO Work Phone: Start: 01-09-2015 End: 01-10-2015 Erythrocyte sedimentation rate Rudy Daugherty DO Work Phone: Start: 01-09-2015 End: 01-10-2015 Leukocytes [Presence] in Stool by Light microscopy Rudy Branch DO Work Phone: Start: 01-09-2015 End: 01-10-2015 C reactive protein [Mass/volume] in Serum or Plasma by High sensitivity method Rudy Branch DO Work Phone: Start: 01-09-2015 End: 01-10-2015 Erythrocyte sedimentation rate Rudy Daugherty DO Work Phone: Start: 01-09-2015 End: 01-10-2015 Leukocytes [Presence] in Stool by Light microscopy Rudy Branch DO Work Phone: Start: 12-07-2014 End: 12-07-2014 Urinalysis Colleen Chito CONTI Work Phone: Start: 10-02-2014 End: 01-10-2015 X-ray exam of abdomen Rudy Branch DO Work Phone: Start: 10-02-2014 End: 01-10-2015 X-ray exam of abdomen Rudy Branch DO Work Phone: Start: 04-25-2014 End: 04-25-2015 Gastroenterology Referral Mabel Bernard Start: 04-25-2014 End: 05-29-2014 OT-Functional Capacity Evaluation Edgar Pearce MD Start: 04-25-2014 End: 04-25-2015 Gastroenterology Referral Mabel Bernard Start: 04-25-2014 End: 05-29-2014 OT-Functional Capacity Evaluation Edgar Pearce MD Start: 01-08-2014 End: 01-08-2014 CBC [...] or complication Hellen Thomas DO Work Phone: Bacteria identified in Blood by Culture Dr. Rudy Branch Work Phone: Bacteria identified in Blood by Culture Dr. Rudy Branch Work Phone: section Rudy zavala Work Phone: section [facility] DO Clostridium difficile detection Dr. Rudy Branch Work Phone: Colonoscopy [facility] DO Endometrial ablation Rudy Branch Work Phone: Enteric Bacteriology Dr. Yulissa Branch Work Phone: H/O: section History of C-sectio n Dr. Rudy Branch Work Phone: H/O: hysterectomy S/P laparoscop ic hysterectomy Kellen Mayorga MD Work Phone: H/O: hysterectomy S/P laparoscop ic hysterectomy Ofelia Lambrinides DESIGNER.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 Work Phone: H/O: hysterectomy S/P laparoscop ic hysterectomy Us 1 Work Phone: H/O: surgery Hx of removal of ovary Dr. Rudy Branch Work Phone: Comment on above: endometriosis, 2015 torsion laparoscopic H/O: surgery S/P ovarian cystectomy Kellen Mayorga MD Work Phone: H/O: surgery S/P ovarian cystectomy Ofelia Alvarezrinfaraz DESIGNER.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 Work Phone: H/O: surgery Hx of removal of ovary Dr. Rudy Branch Work Phone: H/O: surgery S/P ovarian cystectomy Us 1 Work Phone: Hernia of abdominal cavity (disorder) WILMAR WILLIAMSON DO Hernia repair Rudy do Work Phone: Hysterectomy ENRIKE MARIE MD Investigation of tra nsfusion reaction Dr. Ruyd Branch Work Phone: Lactoferrin measurement Dr. Rudy Branch Work Phone: Loop electrosurgical excision procedure WILMAR WILLIAMSON DO Microbial culture, routine D suly Branch Work Phone: Ova OR parasites identification Dr. Rudy Branch Work Phone: Respiratory Panel (PCR) Dr. Rudy Branch Work Phone: Screening colonoscopy Rudy Branch Work Phone: Sigmoidoscopy (Fiber optic, Therapeutic ) Rudy Branch Work Phone: Urine culture Dr. Rudy whitmore Work Phone: Urine culture Dr. Rudy whitmore Work Phone: Urine culture Dr. Rudy whitmore Work Phone: Plan of Treatment Date Care Activity Detail Author Start: 08-21-2033 Zoster Vaccines (1 of 2) Zoster Vaccines (1 of 2) [facility] Start: 03-26-2026 HPV TESTING HPV TESTING [facility] Start: 03-26-2026 PAP TESTING PAP TESTING [facility] Start: 03-26-2026 Screening for malignant neoplasm of cervix [facility] Start: 01-22-2025 End: 01-22-2025 Patient encounter procedure 01/22/2025 1:45 PM EDT Office Visit Department of Gynecologic Oncology [address] [place] [address] Nick Mcmanus DO [address] [place] [address] Department of Gynecologic Oncology Start: 11-27-2024 Influenza vaccination INFLUENZA VACCINE (Season Ended) [facility] Start: 10-06-2024 Cyanocobalamin vitamin b-12 Vitamin B-12 [facility] Start: 10-06-2024 Vitamin D25-OH Vitamin D25-OH [facility] Start: 09-08-2024 Patient referral [facility] Work Phone: Start: 07-21-2024 BP Controlled (<130/80) BP Controlled (<130/80) [facility] Start: 07-19-2024 [facility] Start: 07-17-2024 End: 01-16-2025 US Pelvis transvaginal US PELVIC W TRANSVAGINAL Imaging Routine Malignant neoplasm of left ovary Expected: 07/17/2024, Expires: 01/16/2025 [facility] Comment on above: Expected: 07/17/2024, Expires: Start: 07-16-2024 [facility] Start: 07-16-2024 [facility] Start: 07-10-2024 End: 07-10-2025 ANTI MULLERIAN HORMONE [facility] Comment on above: Expected: 07/10/2024, Expires: Start: 06-08-2024 24 hour urine calcium output measurement [facility] Start: 06-08-2024 Iv infusion hydration initial 31 min-1 hour [facility] Start: 06-05-2024 Protein measurement [facility] Start: 05-30-2024 [facility] Start: 04-27-2024 Patient referral [facility] Work Phone: Start: 04-22-2024 BP Controlled (<130/80) BP Controlled (<130/80) [facility] Start: 04-19-2024 Patient referral [facility] Work Phone: Start: 02-26-2024 BP Controlled (<130/80) BP Controlled (<130/80) [facility] Start: 01-17-2024 End: 01-16-2025 CA 125 CA 125 Lab Routine Malignant neoplasm of left ovary Expected: 01/17/2024, Expires: 01/16/2025 [facility] Comment on above: Expected: 01/17/2024, Expires: Start: 01-17-2024 End: 01-16-2025 Hemoglobin A1c/Hemoglobin.total in Blood HEMOGLOBIN A1C Lab Routine Malignant neoplasm of left ovary Expected: 01/17/2024, Expires: 01/16/2025 [facility] Comment on above: Expected: 01/17/2024, Expires: Start: 01-17-2024 End: 01-16-2025 US Pelvis transvaginal US PELVIC W TRANSVAGINAL Imaging Routine Malignant neoplasm of left ovary Expected: 01/17/2024, Expires: 01/16/2025 [facility] Comment on above: Expected: 01/17/2024, Expires: 5 Start: 01-03-2024 Diabetes mellitus screening Diabetes Screening [facility] Start: 01-03-2024 Hemoglobin A1c measurement Diabetes: Hemoglobin A1C [facility] Start: 01-01-2024 BP Controlled (<130/80) BP Controlled (<130/80) [facility] Start: 11-28-2023 Covid-19 Vaccine () Covid-19 Vaccine () [facility] Start: 11-28-2023 COVID-19 VACCINE ( season) COVID-19 VACCINE ( season) [facility] Start: 11-28-2023 Influenza vaccination [facility] Start: 11-15-2023 BP CONTROLLED (<130/80) BP CONTROLLED (<130/80) [facility] in Start: 11-05-2023 End: 11-05-2023 Patient encounter procedure 11/05/2023 2:40 PM EDT Office Visit [facility] [address] [place] [phone] Canelo Pina, DESIGNER-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 [address] [place] [address] [facility] Start: 10-29-2023 End: 10-29-2023 ambulatory 10/29/2023 12:00 PM EDT [facility] Dermatology Rosaline Lay [address] [place] [address] AndSneha valdes APRN.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 [address] [place] [address] 3 month Dermatology Rosaline Lay Comment on above: 3 month Start: 10-08-2023 End: 10-08-2023 Patient encounter procedure 10/08/2023 11:20 AM EDT Office Visit [facility] [address] [place] [phone] Canelo Pina, DESIGNER-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 [address] [place] [address] [facility] Start: 09-22-2023 End: 09-22-2023 Patient encounter procedure 09/22/2023 9:00 AM EDT Procedure Visit [facility] [address] [place] [address] Harley Jara MD [address] [place] [address] [facility] Start: 09-15-2023 End: 09-15-2023 Patient encounter procedure [facility] 1 Start: 09-07-2023 End: 09-07-2023 Patient encounter procedure 09/07/2023 9:20 AM EDT [facility] [address] [place] [address] Brenda Berg MD [address] [place] [address] [facility] Rheumatology [facility] Ar[facility] Comment on above: MRI Start: 08-31-2023 End: 08-31-2023 Follow-up encounter 08/31/2023 8:30 AM EDT [address] [place] [phone] Serjio Thompson MD [address] [place] [address] follow up [facility] Comment on above: follow up Start: 08-24-2023 End: 08-24-2023 Patient encounter procedure 08/24/2023 3:00 PM EDT Appointment Radiology [address] [place] [address] MRI PELVIS ORTHO GENERAL WO IVCON Radiology Comment on above: MRI PELVIS ORTHO GENERAL WO IVCON Start: 2023 Lipid panel LIPID SCREENING [facility] Start: 2023 Screening for malignant neoplasm of breast [facility] Start: 08-17-2023 End: 08-17-2023 Telemedicine consultation with patient 08/17/2023 3:20 PM EDT Telemedicine [facility] [address] [place] [phone] Canelo Pina, DESIGNER-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 [address] [place] [address] [facility] Start: 08-13-2023 End: 08-13-2023 Patient encounter procedure 08/13/2023 3:20 PM EDT Office Visit Dermatology Rosaline Lay [address] [place] [address] Sneha Benton, TRACIE.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 [address] [place] [address] acne vulgaris Dermatology [facility] Comment on above: acne vulgaris Start: 07-29-2023 End: 07-29-2023 Patient encounter procedure 07/29/2023 9:00 AM EDT Office Visit Dermatology Rosaline Lay [address] [place] [address] Sneha Benton, TRACIE.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 [address] [place] [address] acne vulgaris Dermatology [facility] Comment on above: acne vulgaris Start: 07-15-2023 Colonoscopy w/biopsy single/multiple COLONOSCOPY AND BIOPSY [facility] Start: 07-15-2023 Egd transoral biopsy single/multiple EGD BIOPSY SINGLE/MULTIPLE [facility] Start: 07-15-2023 Patient discharge [facility] Start: 06-21-2023 End: 06-21-2023 Telemedicine consultation with patient [facility] Start: 06-17-2023 [facility] Start: 06-16-2023 End: 06-16-2023 Patient encounter procedure 06/16/2023 10:00 AM EDT Procedure Visit [place] [address] [address] [facility] [phone] [place] [address] [address] [place] [address] [place] [address] Start: 05-27-2023 End: 05-27-2023 Telemedicine consultation with patient 05/27/2023 8:00 AM EST Telemedicine [facility] [address] [facility] [address] [place] [address] Danay Ramires, DESIGNER-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 [address] [facility] [address] [place] [address] [facility] Start: 05-19-2023 End: 05-19-2023 Patient encounter procedure 05/19/2023 3:00 PM EST Procedure Visit [facility] 1 [address] [facility] [address] [place] [address] [place] [address] [facility] [place] [address] [place] [address] Start: 05-13-2023 End: 05-13-2023 Telemedicine consultation with patient 05/13/2023 9:40 AM EST Telemedicine [facility] [address] [facility] [address] [place] [phone] Canelo Pina, DESIGNER-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 [address] [place] [address] [facility] Start: 05-03-2023 End: 05-03-2023 ambulatory 05/03/2023 1:00 PM EST Treatment [facility] [address] [place] [address] Suyapa Cabrera, PT [address] [facility] [place] [address] [facility] Start: 04-21-2023 End: 04-21-2024 25-hydroxyvitamin D3 [Mass/volume] in Serum or Plasma Vitamin D 25-Hydroxy,Total (for eval of Vitamin D levels) Lab Routine Loose stools Expected: 04/21/2023 (Approximate), Expires: 04/21/2024 [facility] Work Phone: Comment on above: Expected: 04/21/2023 (Approximate), Expi res: 04/21/2024 Start: 04-21-2023 End: 04-21-2024 C reactive protein [Mass/volume] in Serum or Plasma C-reactive protein Lab Routine Loose stools Expected: 04/21/2023 (Approximate), Expires: 04/21/2024 [facility] Work Phone: Comment on above: Expected: 04/21/2023 (Approximate), Expi res: 04/21/2024 Start: 04-21-2023 End: 04-21-2024 Calprotectin [Mass/mass] in Stool Calprotectin Stool Lab Routine Loose stools Expected: 04/21/2023 (Approximate), Expires: 04/21/2024 [facility] Work Phone: Comment on above: Expected: 04/21/2023 (Approximate), Expi res: 04/21/2024 Start: 04-21-2023 End: 04-21-2024 CBC panel - Blood by Automated count CBC Lab Routine Loose stools Expected: 04/21/2023 (Approximate), Expires: 04/21/2024 [facility] Work Phone: Comment on above: Expected: 04/21/2023 (Approximate), Expi res: 04/21/2024 Start: 04-21-2023 End: 04-21-2024 Cobalamin (Vitamin B12) [Mass/volume] in Serum or Plasma Vitamin B12 Lab Routine Loose stools Expected: 04/21/2023 (Approximate), Expires: 04/21/2024 [facility] Work Phone: Comment on above: Expected: 04/21/2023 (Approximate), Expi res: 04/21/2024 Start: 04-21-2023 End: 04-21-2024 Comprehensive metabolic 2000 panel - Serum or Plasma Comprehensive metabolic panel Lab Routine Loose stools Expected: 04/21/2023 (Approximate), Expires: 04/21/2024 [facility] Work Phone: Comment on above: Expected: 04/21/2023 (Approximate), Expi res: 04/21/2024 Start: 04-21-2023 End: 04-21-2024 Erythrocyte sedimentation rate Sedimentation Rate Lab Routine Loose stools Expected: 04/21/2023 (Approximate), Expires: 04/21/2024 [facility] Work Phone: Comment on above: Expected: 04/21/2023 (Approximate), Expi res: 04/21/2024 Start: 04-21-2023 End: 04-21-2024 Folate [Mass/volume] in Serum or Plasma Folate Lab Routine Loose stools Expected: 04/21/2023 (Approximate), Expires: 04/21/2024 [facility] Work Phone: Comment on above: Expected: 04/21/2023 (Approximate), Expi res: 04/21/2024 Start: 04-21-2023 End: 04-21-2024 Iron and Iron binding capacity panel - Serum or Plasma Iron and TIBC Lab Routine Loose stools Expected: 04/21/2023 (Approximate), Expires: 04/21/2024 [facility] Work Phone: Comment on above: Expected: 04/21/2023 (Approximate), Expi res: 04/21/2024 Start: 04-15-2023 End: 04-22-2023 Bacteria identified in Urine by Culture Urine culture Microbiology Routine Gross hematuria Expected: 04/15/2023 (Approximate), Expires: 04/22/2023 [facility] Work Phone: Comment on above: Expected: 04/15/2023 (Approximate), Expi res: 04/22/2023 Start: 04-15-2023 End: 04-15-2024 Creatinine [Mass/volume] in Serum or Plasma Creatinine, Serum Lab Routine Gross hematuria Left flank pain Expected: 04/15/2023 (Approximate), Expires: 04/15/2024 [facility] Work Phone: Comment on above: Expected: 04/15/2023 (Approximate), Expi res: 04/15/2024 Start: 04-15-2023 End: 04-15-2024 CT Kidney and Ureter and Urinary bladder 3D post processing WO and W contrast IV CT urography w 3D volume rendered imaging Imaging Routine Gross hematuria Left flank pain Expected: 04/15/2023, Expires: 04/15/2024 [facility] Work Phone: Comment on above: Expected: 04/15/2023, Expires: Start: 04-15-2023 End: 04-15-2024 Non-gynecological cytology method study [facility] Work Phone: Comment on above: Expected: 04/15/2023 (Approximate), Expi res: 04/15/2024 Start: 04-08-2023 End: 04-08-2023 Professional / ancillary services management 04/08/2023 2:00 PM EST Ancillary Procedure [facility] [address] [place] [phone] [facility] Start: 04-07-2023 BP CONTROLLED (<130/80) BP CONTROLLED (<130/80) [facility] Start: 04-06-2023 End: 05-07-2023 Bacteria identified in Urine by Culture [facility] Work Phone: Comment on above: Expected: 04/06/2023, Expires: Start: 04-06-2023 End: 04-06-2024 US Kidney - bilateral and Urinary bladder US renal complete Imaging Routine History of kidney stones Expected: 04/06/2023 (Approximate), Expires: 04/06/2024 [facility] Work Phone: Comment on above: Expected: 04/06/2023 (Approximate), Expi res: 04/06/2024 Start: 03-29-2023 Depression Assessment Depression Assessment [facility] Start: 03-13-2023 End: 03-13-2023 [facility] Start: 03-13-2023 [facility] Start: 02-04-2023 BP CONTROLLED (<130/80) BP CONTROLLED (<130/80) [facility] Start: 01-26-2023 Patient referral [facility] Work Phone: Start: 12-23-2022 ADY, Provider: Thea Hernandez, Status: Pen, Time: 11:45 AM ADY, Provider: Thea Hernandez, Status: Pen, Time: 11:45 AM [id number] de [id number] Work Phone: Start: 12-16-2022 End: 02-15-2023 Comprehensive metabolic 2000 panel - Serum or Plasma COMP METABOLIC PANEL Lab Routine Obesity, Class I, BMI 30-34.9 Expected: 12/16/2022, Expires: 02/15/2023 [facility] Work Phone: Comment on above: Expected: 12/16/2022, Expires: 3 Start: 12-16-2022 End: 02-15-2023 Hemoglobin A1c in Blood HGB A1C Lab Routine Obesity, Class I, BMI 30-34.9 Expected: 12/16/2022, Expires: 02/15/2023 [facility] Work Phone: Comment on above: Expected: 12/16/2022, Expires: 3 Start: 12-16-2022 End: 02-15-2023 Lipid 1996 panel - Serum or Plasma LIPID PANEL BASIC Lab Routine Obesity, Class I, BMI 30-34.9 Expected: 12/16/2022, Expires: 02/15/2023 [facility] Work Phone: Comment on above: Expected: 12/16/2022, Expires: 3 Start: 11-27-2022 End: 01-27-2023 Bacteria identified in Urine by Culture [facility] Work Phone: Comment on above: Expected: 11/27/2022, Expires: 3 Start: 11-27-2022 Covid-19 Vaccine () Covid-19 Vaccine () [facility] Start: 11-27-2022 Influenza vaccination [facility] Start: 11-27-2022 End: 01-27-2023 Urinalysis complete panel - Urine [facility] Work Phone: Comment on above: Expected: 11/27/2022, Expires: Start: 10-19-2022 End: 05-21-2023 Us transvaginal US FEMALE PELVIS TRANSVAG Radiology Routine S/P laparoscopic hysterectomy Pelvic pain in female Abnormality present on gross pathology S/P ovarian cystectomy Expected: 10/19/2022 (Approximate), Expires: 05/21/2023 [facility] Work Phone: Comment on above: Expected: 10/19/2022 (Approximate), Expi res: 05/21/2023 Start: 10-02-2022 BP CONTROLLED (<130/80) BP CONTROLLED (<130/80) [facility] Start: 09-08-2022 BP CONTROLLED (<130/80) BP CONTROLLED (<130/80) [facility] Start: 04-25-2022 [facility] Start: 04-17-2022 Sars-cov-2 detection by dna/rna SARS-COV-2 COVID-19 AMP PRB [facility] Start: 04-16-2022 BP CONTROLLED (<130/80) BP CONTROLLED (<130/80) [facility] Start: 03-29-2022 DEPRESSION ASSESSMENT DEPRESSION ASSESSMENT [facility] Start: 03-26-2022 Screening for malignant neoplasm of cervix Cervical Cancer Screening [facility] Start: 12-03-2021 Assay of estradiol ASSAY OF TOTAL ESTRADIOL [facility] Work Phone: Start: 12-03-2021 Assay of insulin total ASSAY OF INSULIN [facility] Work Phone: Start: 12-03-2021 Assay of progesterone ASSAY OF PROGESTERONE [facility] Work Phone: Start: 12-03-2021 Assay of testosterone free ASSAY OF FREE TESTOSTERONE [facility] Work Phone: Start: 12-03-2021 Assay of testosterone total ASSAY OF TOTAL TESTOSTERONE [facility] Work Phone: Start: 12-03-2021 Assay of thyroid stimulating hormone tsh ASSAY THYROID STIM HORMONE [facility] Work Phone: Start: 12-03-2021 Blood count complete auto&auto difrntl wbc COMPLETE CBC W/AUTO DIFF WBC [facility] Work Phone: Start: 12-03-2021 Collection venous blood venipuncture ROUTINE VENIPUNCTURE [facility] Work Phone: Start: 12-03-2021 Cortisol total TOTAL CORTISOL [facility] Work Phone: Start: 12-03-2021 Culture bacterial quanttative colony count urine URINE CULTURE/COLONY COUNT [facility] Work Phone: Start: 12-03-2021 Dehydroepiandrosterone DEHYDROEPIANDROSTERONE [facility] Work Phone: Start: 12-03-2021 Urnls dip stick/tablet rgnt non-auto w/o micrscp URINALYSIS NONAUTO W/O SCOPE [facility] Work Phone: Start: 12-03-2021 [facility] Work Phone: Start: 11-27-2021 Influenza vaccination [facility] Start: 10-24-2021 Ova&parasites direct smears concentration & id OVA AND PARASITES SMEARS [facility] Work Phone: Start: 10-24-2021 Smr prim src cplx spec stain ova&parasits SMEAR COMPLEX STAIN [facility] Work Phone: Start: 10-22-2021 Celiac disease screen [facility] Work Phone: Start: 10-22-2021 Immunoglobulin measurement [facility] Work Phone: Start: 10-22-2021 Procedure [facility] Work Phone: Start: 10-22-2021 Serum immunofixation [facility] Work Phone: Start: 10-22-2021 [facility] Work Phone: Start: 10-08-2021 End: 09-08-2022 Basic metabolic 2000 panel - Serum or Plasma BASIC METABOLIC PNL Lab Routine Preop examination Expected: 10/08/2021, Expires: 09/08/2022 [facility] Work Phone: Comment on above: Expected: 10/08/2021, Expires: 3 Start: 10-08-2021 End: 10-08-2021 CBC panel - Blood by Automated count CBC Lab Routine Preop examination Expected: 10/08/2021, Expires: 10/08/2021 [facility] Work Phone: Comment on above: Expected: 10/08/2021, Expires: 2 Start: 10-08-2021 End: 09-08-2022 CONFIRM BLOOD TYPE CONFIRM BLOOD TYPE Blood Bank Routine Preop examination Expected: 10/08/2021, Expires: 09/08/2022 [facility] Work Phone: Comment on above: Expected: 10/08/2021, Expires: 3 Start: 10-08-2021 End: 09-08-2022 TYPE AND SCREEN,30 DAY TYPE AND SCREEN,30 DAY Blood Bank Routine Preop examination Expected: 10/08/2021, Expires: 09/08/2022 [facility] Work Phone: Comment on above: Expected: 10/08/2021, Expires: 3 Start: 10-02-2021 End: 12-02-2021 Honey bee IgE Ab [Units/volume] in Serum ALGN HONEYBEE IGE Lab Routine Anaphylaxis due to hymenoptera venom, accidental or unintentional, initial encounter Expected: 10/02/2021, Expires: 12/02/2021 [facility] Work Phone: Comment on above: Expected: 10/02/2021, Expires: 2 Start: 10-02-2021 End: 12-02-2021 Paper wasp IgE Ab [Units/volume] in Serum ALGN PAPER WASP IGE Lab Routine Anaphylaxis due to hymenoptera venom, accidental or unintentional, initial encounter Expected: 10/02/2021, Expires: 12/02/2021 [facility] Work Phone: Comment on above: Expected: 10/02/2021, Expires: 2 Start: 10-02-2021 End: 12-02-2021 TRYPTASE BLOOD TRYPTASE BLOOD Lab Routine Anaphylaxis due to hymenoptera venom, accidental or unintentional, initial encounter Expected: 10/02/2021, Expires: 12/02/2021 [facility] Work Phone: Comment on above: Expected: 10/02/2021, Expires: 2 Start: 10-02-2021 End: 12-02-2021 Whitefaced Hornet IgE Ab [Units/volume] in Serum ALGN WHITE FACED HORNET IGE Lab Routine Anaphylaxis due to hymenoptera venom, accidental or unintentional, initial encounter Expected: 10/02/2021, Expires: 12/02/2021 [facility] Work Phone: Comment on above: Expected: 10/02/2021, Expires: 2 Start: 10-02-2021 End: 12-02-2021 Yellow Hornet IgE Ab [Units/volume] in Serum ALGN YELLOW HORNET IGE Lab Routine Anaphylaxis due to hymenoptera venom, accidental or unintentional, initial encounter Expected: 10/02/2021, Expires: 12/02/2021 [facility] Work Phone: Comment on above: Expected: 10/02/2021, Expires: 2 Start: 10-02-2021 End: 12-02-2021 Yellow Jacket IgE Ab [Units/volume] in Serum ALGN YELLOW JACKET IGE Lab Routine Anaphylaxis due to hymenoptera venom, accidental or unintentional, initial encounter Expected: 10/02/2021, Expires: 12/02/2021 [facility] Work Phone: Comment on above: Expected: 10/02/2021, Expires: 2 Start: 09-30-2021 End: 11-30-2021 STAPH AUREUS PCR [facility] Work Phone: Comment on above: Expected: 09/30/2021, Expires: 2 Start: 08-28-2021 Adult depression screening assessment DEPRESSION SCREENING [facility] Start: 06-04-2021 Diabetes mellitus screening Diabetes Screening [facility] Start: 06-04-2021 Hemoglobin A1c measurement Diabetes: Hemoglobin A1C [facility] Start: 04-28-2021 Sars-cov-2 detection by dna/rna SARS-COV-2 COVID-19 AMP PRB [facility] Work Phone: Start: 04-22-2021 Patient referral [facility] Work Phone: Start: 03-29-2021 DEPRESSION ASSESSMENT DEPRESSION ASSESSMENT [facility] Start: 03-12-2021 FUV, Provider: Mag Gonzales, Status: Pen, Time: 8:15 AM FUV, Provider: Mag Gonzales, Status: Pen, Time: 8:15 AM [facility] Work Phone: Start: 01-02-2021 PLVCPOBGYN, Provider: Rhonda Lott, Status: Pen, Time: 2:45 PM PLVCPOBGYN, Provider: Rhonda Lott, Status: Pen, Time: 2:45 PM [facility] Work Phone: Start: 12-11-2020 FUV, Provider: Mag Gonzales, Status: Pen, Time: 7:45 AM FUV, Provider: Mag Gonzales, Status: Pen, Time: 7:45 AM [id number] 240 DO Work Phone: Start: 11-27-2020 Influenza vaccination INFLUENZA (#1) [facility] Start: 08-28-2020 COVID-19 VACCINE (2 - Pfizer series) COVID-19 VACCINE (2 - Pfizer series) [facility] Start: 07-24-2020 COVID-19 VACCINE (2 - Pfizer 3-dose series) COVID-19 VACCINE (2 - Pfizer 3-dose series) [facility] Start: 07-24-2020 Covid-19 Vaccine (2 - Pfizer risk series) Covid-19 Vaccine (2 - Pfizer risk series) [facility] Start: 07-24-2020 COVID-19 VACCINE (2 - Pfizer series) COVID-19 VACCINE (2 - Pfizer series) [facility] Start: 08-18-2019 Cyanocobalamin vitamin b-12 Vitamin B-12 [facility] Start: 06-04-2019 Vitamin D25-OH Vitamin D25-OH [facility] Start: 03-13-2019 End: 03-13-2019 Office Visit 03/13/2019 Office Visit Urology Phillip Anand, TRACIE 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 [address] [place] [address] [phone] [facility] [place] Start: 02-15-2019 End: 02-15-2019 Appointment 02/15/2019 Appointment General Surgery Gumaro Blankenship MD [address] [place] [address] [phone] [facility] General Surgery Start: 11-27-2018 Influenza vaccination Flu vaccine (#1) [place] Start: 01-18-2017 End: 01-23-2017 Endocrinology Referral [facility] Work Phone: Start: 01-18-2017 End: 01-23-2017 Patient encounter procedure Endocrinology Referral [facility] Work Phone: Start: 12-18-2016 End: 12-18-2016 Patient encounter procedure Appointment [facility] Work Phone: Start: 11-26-2016 End: 11-26-2016 Bacteria genital culture *CUV - Culture, VAG/CX [facility] Work Phone: Start: 11-26-2016 End: 11-26-2016 Us pelvic nonobstetric real-time image complete US Pelvis [facility] Work Phone: Start: 11-26-2016 End: 11-26-2016 Us transvaginal US Transvaginal [facility] Work Phone: Start: 11-26-2016 End: 11-26-2016 Bacteria identified in Genital specimen by Aerobe culture *CUV - Culture, VAG/CX [facility] Start: 11-26-2016 End: 11-26-2016 Us pelvic nonobstetric real-time image complete US Pelvis [facility] Start: 11-26-2016 End: 11-26-2016 Us transvaginal US Transvaginal [facility] Start: 11-19-2016 End: 12-03-2016 *UA - Urinalysis w/o Micro *UA - Urinalysis w/o Micro [facility] Work Phone: Start: 11-19-2016 End: 11-19-2016 Patient encounter procedure Appointment [facility] Work Phone: Start: 11-19-2016 End: 12-03-2016 *UA - Urinalysis w/o Micro *UA - Urinalysis w/o Micro [facility] Work Phone: Start: 11-11-2016 End: 11-11-2016 Mri brain brain stem w/o w/contrast material MRI Brain, without, then with Contrast [facility] Work Phone: Start: 11-11-2016 End: 11-11-2016 Mri brain brain stem w/o w/contrast material MRI Brain, without, then with Contrast [facility] Work Phone: Start: 11-03-2016 End: 11-11-2016 Corticotropin [Mass/volume] in Plasma *ACTH [facility] Work Phone: Start: 11-03-2016 End: 11-09-2016 Cortisol *MONA - Cortisol, A.M. [facility] Work Phone: Start: 11-03-2016 End: 11-09-2016 Thyroid stimulating hormone (TSH) *TSH [facility] Work Phone: Start: 11-03-2016 End: 11-09-2016 Thyroxine (T4) free *T4 free [facility] Work Phone: Start: 11-03-2016 End: 11-09-2016 Triiodothyronine (T3) free *T3-Free [facility] Work Phone: Start: 11-03-2016 End: 11-11-2016 Corticotropin [Mass/volume] in Plasma *ACTH [facility] Work Phone: Start: 11-03-2016 End: 11-09-2016 Cortisol [Mass/volume] in Serum or Plasma *MONA - Cortisol, A.M. [facility] Work Phone: Start: 11-03-2016 End: 11-09-2016 Thyrotropin [Units/volume] in Serum or Plasma *TSH [facility] Work Phone: Start: 11-03-2016 End: 11-09-2016 Thyroxine (T4) free [Mass/volume] in Serum or Plasma *T4 free [facility] Work Phone: Start: 11-03-2016 End: 11-09-2016 Triiodothyronine (T3) Free [Mass/volume] in Serum or Plasma *T3-Free [facility] Work Phone: Start: 10-22-2016 End: 10-22-2016 Patient encounter procedure Appointment [facility] Work Phone: Start: 10-02-2016 End: 10-02-2016 Patient encounter procedure Appointment [facility] Work Phone: Start: 10-02-2016 End: 10-02-2016 Urography antegrade rs&i X-Ray, KUB [facility] Work Phone: Start: 10-02-2016 End: 10-02-2016 Urography antegrade rs&i X-Ray, KUB [facility] Work Phone: Start: 09-30-2016 End: 09-30-2016 Patient encounter procedure Appointment [facility] Work Phone: Start: 08-25-2016 End: 08-25-2016 *MISC - Miscellaneous Lab Test #1 *MISC - Miscellaneous Lab Test #1 [facility] Work Phone: Start: 08-25-2016 End: 08-25-2016 *MISC - Miscellaneous Lab Test #1 *MISC - Miscellaneous Lab Test #1 [facility] Work Phone: Start: 08-05-2016 End: 08-05-2016 Thyroid stimulating hormone (TSH) *TSH [facility] Work Phone: Start: 08-05-2016 End: 08-05-2016 Thyroxine (T4) free *T4 free [facility] Work Phone: Start: 08-05-2016 End: 08-05-2016 Triiodothyronine (T3) free *T3-Free [facility] Work Phone: Start: 08-05-2016 End: 08-05-2016 Patient encounter procedure Appointment [facility] Work Phone: Start: 08-05-2016 End: 08-05-2016 Thyrotropin [Units/volume] in Serum or Plasma *TSH [facility] Work Phone: Start: 08-05-2016 End: 08-05-2016 Thyroxine (T4) free [Mass/volume] in Serum or Plasma *T4 free [facility] Work Phone: Start: 08-05-2016 End: 08-05-2016 Triiodothyronine (T3) Free [Mass/volume] in Serum or Plasma *T3-Free [facility] Work Phone: Start: 10-23-2015 End: 10-23-2015 *CBC with Differential *CBC with Differential [facility] Work Phone: Start: 10-23-2015 End: 10-23-2015 *CMP Complete Metabolic Panel *CMP Complete Metabolic Panel [facility] Work Phone: Start: 10-23-2015 End: 10-23-2015 C reactive protein (hsCRP) *CRP - C-Reative Protein [facility] Work Phone: Start: 10-23-2015 End: 10-23-2015 Erythrocyte sedimentation rate *Sedimentation Rate (ESR) [facility] Work Phone: Start: 10-23-2015 End: 10-23-2015 Gamma glutamyl transferase *GGTP [facility] Work Phone: Start: 10-23-2015 End: 10-23-2015 Lipase *Lipase [facility] Work Phone: Start: 10-23-2015 End: 10-23-2015 *CMP Complete Metabolic Panel *CMP Complete Metabolic Panel [facility] Work Phone: Start: 10-23-2015 End: 10-23-2015 C reactive protein [Mass/volume] in Serum or Plasma by High sensitivity method *CRP - C-Reative Protein [facility] Work Phone: Start: 10-23-2015 End: 10-23-2015 CBC W Auto Differential panel - Blood *CBC with Differential [facility] Work Phone: Start: 10-23-2015 End: 10-23-2015 Erythrocyte sedimentation rate *Sedimentation Rate (ESR) [facility] Work Phone: Start: 10-23-2015 End: 10-23-2015 Gamma glutamyl transferase [Enzymatic activity/volume] in Serum or Plasma *GGTP [facility] Work Phone: Start: 10-23-2015 End: 10-23-2015 Lipase [Enzymatic activity/volume] in Serum or Plasma *Lipase [facility] Work Phone: Start: 10-09-2015 End: 10-23-2015 Occupational Therapy General Occupational Therapy General Re[facility], [address] [place] [address], [facility] Work Phone: Start: 10-09-2015 End: 10-08-2016 Occupational Therapy General [facility] Work Phone: Start: 07-17-2015 End: 07-23-2015 Mycobacterium tuberculosis tuberculin stimulated gamma interferon [Presence] in Blood *QFTBINC Quantiferon TB Gold [facility] Work Phone: Start: 07-17-2015 End: 07-23-2015 Mycobacterium tuberculosis tuberculin stimulated gamma interferon [Presence] in Blood *QFTBINC Quantiferon TB Gold [facility] Work Phone: Start: 06-26-2015 End: 06-27-2015 *HIV antibody *HIV antibody [facility] Work Phone: Start: 06-26-2015 End: 06-27-2015 *HIV antibody *HIV antibody [facility] Work Phone: Start: 04-22-2015 End: 04-22-2015 Fish Skinning Machine Feeder Fish Skinning Machine Feeder [facility] Nutrition Services, [address] [place], [address] [facility] Work Phone: Start: 04-22-2015 End: 04-22-2015 Nutrition therapy Fish [employer]ning [employer] [facility], [address] [place], [address] [facility] Work Phone: Start: 04-02-2015 End: 04-03-2015 Gastroenterology Referral Gastroenterology Referral Jourdan Rivera, [address] [place] [address], [id number] [facility] Work Phone: Start: 04-02-2015 End: 04-03-2015 Patient encounter procedure Gastroenterology Referral Jourdan Rivera, [address] [place] [address], [id number] [facility] Work Phone: Start: 01-09-2015 End: 01-10-2015 C reactive protein (hsCRP) *CRP - C-Reative Protein [facility] Work Phone: Start: 01-09-2015 End: 01-10-2015 Erythrocyte sedimentation rate *Sedimentation Rate (ESR) [facility] Work Phone: Start: 01-09-2015 End: 01-10-2015 Leukocytes presencein stool *WBC, Stool [facility] Work Phone: Start: 01-09-2015 End: 01-10-2015 C reactive protein [Mass/volume] in Serum or Plasma by High sensitivity method *CRP - C-Reative Protein [facility] Work Phone: Start: 01-09-2015 End: 01-10-2015 Erythrocyte sedimentation rate *Sedimentation Rate (ESR) [facility] Work Phone: Start: 01-09-2015 End: 01-10-2015 Leukocytes [Presence] in Stool by Light microscopy *WBC, Stool [facility] Work Phone: Start: 12-07-2014 End: 12-14-2014 Urology Referral Urology Referral Emmanuel Addy, [address] [place] [address], [address], [place], [address] [facility] Work Phone: Start: 12-07-2014 End: 12-14-2014 Patient encounter procedure Urology Referral Emmanuel Daly, [address] [facility], [address], [place], [address] [facility] Work Phone: Start: 10-02-2014 End: 01-10-2015 X-ray exam of abdomen X-Ray, Abdominal [facility] Work Phone: Start: 10-02-2014 End: 01-10-2015 X-ray exam of abdomen X-Ray, Abdominal [facility] Work Phone: Start: 04-25-2014 End: 04-25-2014 Gastroenterology Referral Gastroenterology Referral Magdi Ross MD, [address] [facility], [place], [address] [facility] Work Phone: Start: 04-25-2014 End: 05-29-2014 OT-Functional Capacity Evaluation OT-Functional Capacity Evaluation Physical Therapy [facility], [address] [place] [address], [place], [address] [facility] Work Phone: Start: 04-25-2014 End: 05-29-2014 OT-Functional Capacity Evaluation OT-Functional Capacity Evaluation Physical Therapy [facility], [address] [place], [address] [facility] Work Phone: Start: 04-25-2014 End: 04-25-2014 Patient encounter procedure Gastroenterology Referral Magdi Ross MD, [address] [facility], [place], [address] [facility] Work Phone: Start: 01-08-2014 End: 01-08-2014 CBC W Auto Differential panel - Blood *CBC without Diff [facility] Work Phone: Start: 01-08-2014 End: 01-08-2014 Ct abdomen w/o & w/contrast material CT Abdomen with and without Contrast [facility] Work Phone: Start: 01-08-2014 End: 01-08-2014 Ct pelvis w/o & w/contrast material CT Pelvis with and without Contrast [facility] Work Phone: Start: 01-08-2014 End: 01-08-2014 HCG.beta subunit ( test) Ql (U) Urine (Office) [facility] Work Phone: Start: 01-08-2014 End: 01-08-2014 Urnls dip stick/tablet rgnt non-auto w/o micrscp UA Dipstick (Office) [facility] Work Phone: Start: 01-08-2014 End: 01-08-2014 CBC W Auto Differential panel - Blood *CBC without Diff [facility] Work Phone: Start: 01-08-2014 End: 01-08-2014 Ct abdomen w/o & w/contrast material CT Abdomen with and without Contrast [facility] Work Phone: Start: 01-08-2014 End: 01-08-2014 Ct pelvis w/o & w/contrast material CT Pelvis with and without Contrast [facility] Work Phone: Start: 01-08-2014 End: 01-08-2014 Urine test visual color cmprsn meths Urine (Office) [facility] Work Phone: Start: 01-08-2014 End: 01-08-2014 Urnls dip stick/tablet rgnt non-auto w/o micrscp UA Dipstick (Office) [facility] Work Phone: Start: 08-21-2013 Screening for malignant neoplasm of cervix [facility] Start: 06-22-2013 End: 06-26-2013 Bacteria identified in Throat by Culture *CUT - Throat Culture [facility] Work Phone: Start: 06-22-2013 End: 06-26-2013 Bacteria identified in Throat by Culture *CUT - Throat Culture [facility] Work Phone: Start: 08-21-2005 DTaP/Tdap/Td Vaccines (1 - Tdap) DTaP/Tdap/Td Vaccines (1 - Tdap) [facility] Start: 08-21-2004 Cervical cancer screen Cervical cancer screen [place] Start: 08-21-2004 Screening for malignant neoplasm of cervix [facility] Start: 08-21-2002 DTaP/Tdap/Td Vaccines (1 - Tdap) DTaP/Tdap/Td Vaccines (1 - Tdap) [facility] Start: 08-21-2002 Hepatitis A Vaccines (1 of 2 - Risk 2-dose series) Hepatitis A Vaccines (1 of 2 - Risk 2-dose series) [facility] Start: 08-21-2002 Hepatitis B vaccination HEP B VACCINE (1 of 3 - 19+ 3-dose series) [facility] Start: 08-21-2002 Hepatitis B Vaccine (1 of 3 - 19+ 3-dose series) Hepatitis B Vaccine (1 of 3 - 19+ 3-dose series) [facility] Start: 08-21-2002 Hepatitis B Vaccines (1 of 3 - 19+ 3-dose series) Hepatitis B Vaccines (1 of 3 - 19+ 3-dose series) [facility] Start: 08-21-2002 Pneumococcal vaccination Pneumococcal Vaccine (1 of 2 - PCV) [facility] Start: 08-21-2002 PNEUMOCOCCAL VACCINE SERIES (1 of 2 - PCV) PNEUMOCOCCAL VACCINE SERIES (1 of 2 - PCV) [facility] Start: 08-21-2002 Shingrix Vaccine (1 of 2) Shingrix Vaccine (1 of 2) [facility] Start: 08-21-2002 Third diphtheria, tetanus and acellular pertussis (DTaP) vaccination TDAP (ADULT) [facility] Start: 08-21-2002 Urine microalbumin profile [facility] Start: 08-21-2001 ANNUAL PCP TEAM CHRONIC DISEASE VISIT ANNUAL PCP TEAM CHRONIC DISEASE VISIT [facility] Start: 08-21-2001 BP CONTROLLED (<130/80) BP CONTROLLED (<130/80) [facility] Start: 08-21-2001 Depression Screening Depression Screening [facility] Start: 08-21-2001 Hepatitis C screening Hepatitis C Screening [facility] Start: 08-21-2001 SPIROMETRY SPIROMETRY [facility] Start: 08-21-1998 HIV screen HIV screen [place] Start: 08-21-1998 HIV screening HIV SCREENING DISCUSSION [facility] Start: 08-21-1996 Varicella vaccination Varicella Vaccines (1 of 2 - 13+ 2-dose series) [facility] Start: 1995 Depression Screening Depression Screening [facility] Start: 08-21-1994 DTaP/Tdap/Td vaccine (1 - Tdap) DTaP/Tdap/Td vaccine (1 - Tdap) [place] Start: 08-21-1989 PNEUMOCOCCAL (1 - PCV) PNEUMOCOCCAL (1 - PCV) [facility] Start: 08-21-1989 Pneumococcal vaccination [facility] Start: 08-21-1989 PNEUMOCOCCAL VACCINE SERIES (1 of 2 - PCV) PNEUMOCOCCAL VACCINE SERIES (1 of 2 - PCV) [facility] Start: 08-21-1989 Pneumococcal Vaccine: Pediatrics (0 to 5 Years) and At-Risk Patients (6 to 64 Years) (1 of 2 - PCV) Pneumococcal Vaccine: Pediatrics (0 to 5 Years) and At-Risk Patients (6 to 64 Years) (1 of 2 - PCV) [facility] Start: 08-21-1984 Hepatitis A Vaccines (1 of 2 - Risk 2-dose series) Hepatitis A Vaccines (1 of 2 - Risk 2-dose series) [facility] Start: 08-21-1984 Hepatitis B Surface Antibody Hepatitis B Surface Antibody [facility] Start: 08-21-1984 MMR Vaccines (1 of 1 - Standard series) MMR Vaccines (1 of 1 - Standard series) [facility] Start: 08-21-1984 Varicella vaccination Varicella Vaccines (1 of 2 - 2-dose childhood series) [facility] Start: 08-21-1984 Varicella Vaccine (1 of 2 - 2-dose childhood series) Varicella Vaccine (1 of 2 - 2-dose childhood series) [place] Start: 1983 HEPATITIS B (1 of 3 - 3-dose series) HEPATITIS B (1 of 3 - 3-dose series) [facility] Start: 1983 Hepatitis B Vaccine (1 of 3 - 3-dose series) Hepatitis B Vaccine (1 of 3 - 3-dose series) [facility] Start: 1983 Hepatitis B Vaccines (1 of 3 - 3-dose series) Hepatitis B Vaccines (1 of 3 - 3-dose series) [facility] Start: 1983 Hepatitis C screening HEPATITIS C VIRUS SCREENING [facility] Start: 1983 HIV screening HIV Screening [facility] Start: 1983 Lipid panel Lipid Panel [facility] Start: 1983 Screening for osteoporosis Bone Density Scan [facility] Start: 1983 TB Test TB Test [facility] Start: 1983 Tetanus vaccination TETANUS [facility] Start: 1983 Yearly Adult Physical Yearly Adult Physical [facility] 24 Hour ECG [facility] 24 hour urine sample volume measurement [facility] 24 hour urine urate output measurement [facility] Albumin [Moles/volum e] in Serum or Plasma [facility] Work Phone: Albumin/Globulin ratio [facility] Work Phone: Ankle brachial press ure index [facility] Antibody to lupus La protein measurement [facility] Work Phone: Antibody to lupus La protein measurement [facility] Antibody to SS-A measurement [facility] Work Phone: Antibody to SS-A measurement [facility] Bacteria identified in Urine by Culture Urine Culture [facility] Work Phone: Bacteria identified in Urine by Culture URINE CULTURE Microbiology Routine Urinary urgency Urinary frequency Ordered: 02/09/2022 [facility] Work Phone: Comment on above: Ordered: 02/09/2022 Bacteria identified in Urine by Culture URINE CULTURE Microbiology Routine Urinary frequency 11/14/2022 2:45 PM EDT [facility] Work Phone: Bacteria identified in Urine by Culture BACTERIAL CULTURE, URINE Microbiology Routine Urgency of urination 09/22/2024 11:36 AM EDT [facility] Work Phone: End: 05-19-2023 Basic metabolic 2000 panel - Serum or Plasma BASIC METABOLIC PNL Lab Routine Adult acne Once per month for 4 Occurrences starting 05/19/2022 until 05/19/2023 [facility] Work Phone: Comment on above: Once per month for 4 Occurrences startin g 05/19/2022 until 05/19/2023 End: 02-15-2019 Blood glucose - POCT Blood glucose - POCT Point of Care Testing STAT One Time for 1 Occurrences starting 02/15/2019 until 02/15/2019 [place] Comment on above: One Time for 1 Occurrences starting 01/28 until 02/15/2019 Calcium [Mass/time] in 24 hour Urine [facility] Calcium [Mass/volume ] in Urine [facility] CALCULI ANALYSIS CALCULI ANALYSI S Lab Routine Kidney stone Ordered: 03/13/2022 [facility] Work Phone: Comment on above: Ordered: 03/13/2022 End: 04-06-2024 Cancer Ag 125 [Units/volume] in Serum or Plasma Cancer Antigen 125 Lab Routine Endometriosis Pelvic pain in female 1 Occurrences starting 04/06/2023 until 04/06/2024 [facility] Work Phone: Comment on above: 1 Occurrences starting 04/06/2023 until 04/06/2024 Cancer Ag 125 [Units/volume] in Serum or Plasma Cancer Antigen 125 Lab Routine Endometriosis Pelvic pain in female 04/06/2023 11:30 AM [facility] Work Phone: Centromere protein B Ab [Units/volume] in Serum [facility] Work Phone: Centromere protein B Ab [Units/volume] in Serum [facility] Chromatin Ab [Units/ volume] in Serum or Plasma [facility] Work Phone: Chromatin Ab [Units/ volume] in Serum or Plasma [facility] Citrate [Mass/volume ] in Urine [facility] Citrate measurement [facility] Clostridioides diffi cile DNA [Presence] in Unspecified specimen by EL with probe detection [facility] Work Phone: Collect Tme Smn [facility] End: 10-10-2022 COLONOSCOPY DIAGNOSTIC COLONOSCOPY DIAGNOSTIC Endoscopy Routine Bloody diarrhea 1 Occurrences starting 10/10/2021 until 10/10/2022 [facility] Work Phone: Comment on above: 1 Occurrences starting 10/10/2021 until 10/10/2022 End: 02-15-2019 Creatinine [Mass/Vol] Creatinine, serum Lab STAT One Time for 1 Occurrences starting 02/15/2019 until 02/15/2019 [facility] [place] Comment on above: One Time for 1 Occurrences starting 01/28 until 02/15/2019 End: 04-15-2023 Ct abdomen & pelvis w/contrast material CT ABD/PEL W IVCON Radiology Routine 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) Other intra-abdominal and pelvic swelling, mass and lump 1 Occurrences starting 03/16/2022 until 04/15/2023 [facility] Work Phone: Comment on above: 1 Occurrences starting 03/16/2022 until 04/15/2023 End: 12-27-2023 Ct abdomen & pelvis w/o contrast material CT FLANK WO IVCON Radiology Routine Kidney stone 1 Occurrences starting 11/27/2022 until 12/27/2023 [facility] Work Phone: Comment on above: 1 Occurrences starting 11/27/2022 until 12/27/2023 CT angiography of co ronary arteries [facility] Work Phone: End: 04-15-2023 CT CHEST W IVCON CT CHEST W IVCON Radiology Routine Other intra-abdominal and pelvic swelling, mass and lump 1 Occurrences starting 03/16/2022 until 04/15/2023 [facility] Work Phone: Comment on above: 1 Occurrences starting 03/16/2022 until 04/15/2023 DNA double strand Ab [Units/volume] in Serum [facility] Work Phone: DNA double strand Ab [Units/volume] in Serum [facility] DNA double strand Ab [Units/volume] in Serum [facility] Elastase.pancreatic [Presence] in Stool [facility] Electrophoresis: [id number] [facility] Work Phone: Electrophoresis: amanda ma globulin [facility] Work Phone: Gastrointestinal pat hogens panel - Stool by EL with probe detection [facility] Work Phone: Giardia lamblia Ag [Presence] in Stool by Immunoassay [facility] Globulin measurement [facility] Work Phone: IgA [Mass/volume] in Serum or Plasma [facility] Work Phone: IgE [Units/volume] i n Serum or Plasma [facility] Work Phone: IgG [Mass/volume] in Serum or Plasma [facility] Work Phone: IgM [Mass/volume] in Serum or Plasma [facility] Work Phone: Incentive spirometry Incentive s pirometry Respiratory Care Routine Q1H PRN until discontinued starting 02/15/2019 [facility] [place] Comment on above: Q1H PRN until discontinued starting 01/28 Initiate Oxygen Ther apy Protocol Initiate Oxygen Therapy Protocol Respiratory Care Routine Daily until discontinued starting 02/15/2019 [facility] [place] Comment on above: Daily until discontinued starting 2018 Intracutaneous tests w/allergenic extracts INTRACU/DERM TESTS-IMMEDIA RX Procedures Routine Seasonal allergies Ordered: 10/02/2021 [facility] Work Phone: Comment on above: Ordered: 10/02/2021 Analisa-1 extractable nuc lear Ab [Units/volume] in Serum [facility] Work Phone: Analisa-1 extractable nuc lear Ab [Units/volume] in Serum [facility] Lactoferrin [Presenc e] in Stool by Immunoassay [facility] Work Phone: Measurement of immunoglobulin A in serum specimen [facility] Work Phone: End: 06-23-2024 MR Lower leg - left WO contrast MRI LOWER LEG WO IVCON LEFT Radiology Routine Other injury of unspecified muscle(s) and tendon(s) at lower leg level, unspecified leg, initial encounter 1 Occurrences starting 05/25/2023 until 06/23/2024 [facility] Work Phone: Comment on above: 1 Occurrences starting 05/25/2023 until 06/23/2024 MR Lumbar spine [facility] MR Lumbar spine [facility] End: 08-06-2023 MR Pelvis WO and W contrast IV [facility] Work Phone: Comment on above: Once for 1 Occurrences starting 08/06/19 until 08/06/2023 End: 08-20-2024 MR Pelvis WO contrast MRI PELVIS ORTHO GENERAL WO IVCON Radiology Routine Inflammatory bowel disease Pain in joint, multiple sites 1 Occurrences starting 07/22/2023 until 08/20/2024 [facility] Comment on above: 1 Occurrences starting 07/22/2023 until 08/20/2024 End: 07-26-2022 Mri pelvis w/o & w/contrast material MRI FEMALE PELVIS WO/W IVCON Radiology Routine Endometriosis 1 Occurrences starting 06/26/2021 until 07/26/2022 [facility] Work Phone: Comment on above: 1 Occurrences starting 06/26/2021 until 07/26/2022 End: 01-14-2024 Mri spinal canal cervical w/o contrast matrl MRI CERVICAL SPINE WO IVCON Radiology Routine Spinal stenosis of cervical region 1 Occurrences starting 12/15/2022 until 01/14/2024 [facility] Work Phone: Comment on above: 1 Occurrences starting 12/15/2022 until 01/14/2024 End: 01-14-2024 Mri spinal canal lumbar w/o contrast material MRI LUMBAR SPINE WO IVCON Radiology Routine Spinal stenosis of lumbar region, unspecified whether neurogenic claudication present 1 Occurrences starting 12/15/2022 until 01/14/2024 [facility] Work Phone: Comment on above: 1 Occurrences starting 12/15/2022 until 01/14/2024 Neutrophil cytoplasm ic Ab.classic [Units/volume] in Serum [facility] Work Phone: Nuclear Ab [Presence ] in Serum [facility] Nucleic acid assay [facility] Ova and parasites identified in Unspecified specimen by Light microscopy [facility] Work Phone: Ova and parasites identified in Unspecified specimen by Light microscopy [facility] Ova OR parasites identification [facility] P-ANCA measurement [facility] Work Phone: Patient Education [facility] Work Phone: Patient referral [facility] Work Phone: Phase I & II - meter ed glucose Phase I & II - metered glucose Point of Care Testing Routine As Needed until discontinued starting 02/15/2019 [facility] on above: As Needed until discontinued starting End: 02-15-2019 Potassium w/ Reflex to Magnesium Potassium w/ Reflex to Magnesium Lab Routine One Time for 1 Occurrences starting 02/15/2019 until 02/15/2019 [facility] Comment on above: One Time for 1 Occurrences starting 01/28 until 02/15/2019 Procedure [facility] Work Phone: Procedure [facility] Protein electrophore sis panel - Serum or Plasma [facility] Work Phone: Protein measurement [facility] Work Phone: End: 02-15-2019 Protime-INR Protime-INR Lab STAT One Time for 1 Occurrences starting 02/15/2019 until 02/15/2019 [facility] Comment on above: One Time for 1 Occurrences starting 01/28 until 02/15/2019 PT ED OBSTETRICS & GYNECOLOGY PT ED OBSTETRICS & GYNECOLOGY Other 09/08/2021 [facility] Work Phone: End: 02-15-2019 Pulse Oximetry Spot Check Pulse Oximetry Spot Check Respiratory Care Routine One Time for 1 Occurrences starting 02/15/2019 until 02/15/2019 [facility] on above: One Time for 1 Occurrences starting 01/28 until 02/15/2019 REFER FOR ADMIT INTERVIEW REFER FOR ADMIT INTERVIEW Procedures Routine Preop examination Ordered: 09/08/2021 [facility] Work Phone: Comment on above: Ordered: 09/08/2021 Respiratory Panel (PCR) Respiratory Panel (PCR) [facility] Respiratory pathogen s DNA and RNA 12b panel - Unspecified specimen by EL with probe detection [facility] SCL-70 extractable n uclear Ab [Units/volume] in Serum by Immunoassay [facility] Work Phone: SCL-70 extractable n uclear Ab [Units/volume] in Serum by Immunoassay [facility] Serum protein electrophoresis [facility] Work Phone: Blank extractable nu clear Ab [Presence] in Serum [facility] Work Phone: Blank extractable nu clear Ab [Presence] in Serum [facility] SPIROMETRY BASELINE ONLY SPIROME TRY BASELINE ONLY PFT Routine Mild persistent asthma, unspecified whether complicated 10/02/2021 11:37 AM EDT [facility] Work Phone: End: 02-15-2019 Surgical Pathology Surgical Pathology Lab Routine Once for 1 Occurrences starting 02/15/2019 until 02/15/2019 [facility] on above: Once for 1 Occurrences starting 02/16/20 until 02/15/2019 Surgical Pathology Surgical Path ology Lab Routine 02/15/2019 11:20 AM EST [facility] Tissue transglutamin ase IgA Ab [Units/volume] in Serum [facility] Work Phone: UA DIP, URINE (POC) UA DIP, URIN E (POC) Lab Routine Urinary urgency Urinary frequency Ordered: 02/09/2022 [facility] Work Phone: Comment on above: Ordered: 02/09/2022 Urate [Mass/volume] in Urine [facility] URINALYSIS, REFLEX MICROSCOPIC URINALYSIS, REFLEX MICROSCOPIC Lab Routine Screening for genitourinary condition Ordered: 04/07/2022 [facility] Work Phone: Comment on above: Ordered: 04/07/2022 Urine culture Urine Culture [facility] Work Phone: End: 02-04-2024 US DVT LOWER LEFT US DVT LOWER LEFT Radiology Routine Strain of gastrocnemius muscle of left lower extremity, initial encounter 1 Occurrences starting 01/05/2023 until 02/04/2024 [facility] Work Phone: Comment on above: 1 Occurrences starting 01/05/2023 until 02/04/2024 US Heart [facility] End: 04-12-2023 US KIDNEY/BLADDER US KIDNEY/BLADDER Radiology Routine Kidney stone 1 Occurrences starting 03/13/2022 until 04/12/2023 [facility] Work Phone: Comment on above: 1 Occurrences starting 03/13/2022 until 04/12/2023 End: 10-07-2023 US [facility]inal [facility] Work Phone: Comment on above: Once for 1 Occurrences starting 10/07/19 24 until 10/07/2023 US.doppler Lower ext remity vessels [facility] XR Chest PA and Lateral [facility] XR Sacroiliac Joint Views XR SAC ROILIAC JOINTS 2V AP PELVIS/FERGUESON Radiology Routine Pain in joint, multiple sites 07/22/2023 9:43 AM EDT [facility] Work Phone: End: 08-20-2024 XR Sacroiliac Joint Views XR SACROILIAC JOINTS 2V AP PELVIS/FERGUESON Radiology Routine Pain in joint, multiple sites 1 Occurrences starting 07/22/2023 until 08/20/2024 [facility] Work Phone: Comment on above: 1 Occurrences starting 07/22/2023 until 08/20/2024 [facility] Immunizations Immunization Date Immunization Notes Care Provider Fa remy 07-03-2020 Pfizer-BioNTech COVI D-19 Vacc 30 MCG/0.3ML Intramuscular Suspension [place] Work Phone: [facility] Work Phone: Payers Date Payer Category Payer Managed Care (unspecified) MMO 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 2023 Self-pay [id number] 2023 Unknown [id number] 2022 Unknown [id number] 2019 Medicaid [employer] [id number] 2019-Present [phone] [address] [place] [address] Medicaid [id number] 2019 Medicaid [id number] 2018 Unknown [employer] CARES [facility] MEDICAID xxxxxxxxxxx 2018-Present [phone] CLAIMS DEPARTMENT [address] [place] [address] xxxxxxxxxxx [id number] 2017 Unknown 2012 Medicaid [id number] 2012 Unknown [id number] 1983 Unknown [id number] 2.840.1.808625.3.579.2. 8 1983 Unknown [id number] 2.16840.1.046320.3.579.2. 8 1983 Unknown [id number] 2.16840.1.008373.3.579.2. 1069 1983 Unknown [id number] 2.16840.1.669742.3.579.2. 356 1983 Unknown [id number] 2.16840.1.989569.3.579.2. 356 1983 Unknown [id number] 2.16.840.1.051020.3.579.2. 356 1983 Unknown [id number] 2.16.840.1.150695.3.579.2. 356 1983 Unknown [id number] 2.16.840.1.817259.3.579.2. 1242 1983 Unknown [id number] 2.16.840.1.834889.3.579.2. 1243 1983 Unknown [id number] 2.16.840.1.021116.3.579.2. 1243 1983 Unknown [id number] 2.16.840.1.824306.3.579.2. 1243 1983 Unknown [id number] 2.16840.1.598608.3.579.2. 1243 1983 Unknown [id number] 2.16.840.1.785255.3.579.2. 1243 1983 Unknown [id number] 2.16.840.1.649278.3.579.2. 1243 1983 Unknown [id number] 2.16.840.1.717587.3.579.2. 1243 1983 Unknown [id number] 2.16.840.1.304624.3.579.2. 1241 1983 Unknown [id number] 2.16.840.1.088638.3.579.2. 1242 1983 Unknown [id number] 2.16.840.1.474517.3.579.2. 1983 Unknown [id number] 2.16.840.1.220434.3.579.2. 1983 Unknown [id number] 2.16.840.1.954751.3.579.2. 62 1983 Unknown [id number] 2.16.840.1.273258.3.579.2. 62 1983 Unknown [id number] 2.16.840.1.147584.3.579.2. 1983 Unknown [id number] 2.16.840.1.351312.3.579.2. 1983 Unknown [id number] 2.840.1.266265.3.579.2. 1983 Unknown [id number] 2.16.840.1.226320.3.579.2. 1983 Unknown [id number] 2.840.1.317237.3.579.2. 1244 1983 Unknown [id number] 2.840.1.881092.3.579.2. 1244 1983 Unknown [id number] 2.0.1.707711.3.579.2. 1244 1983 Unknown [id number] 2.840.1.412930.3.579.2. 1244 1983 Unknown [id number] 2.840.1.458534.3.579.2. 1244 1983 Unknown [id number] 2.840.1.854378.3.579.2. 1244 1983 Unknown [id number] 2.840.1.902164.3.579.2. 1244 1983 Unknown [id number] 2.840.1.180755.3.579.2. 594 1983 Unknown [id number] 2.840.1.473244.3.579.2. 594 1983 Unknown [id number] 2.16840.1.861203.3.579.2. 594 1983 Unknown [id number] 2.840.1.180710.3.579.2. 594 1983 Unknown [id number] 2.16.840.1.754528.3.579.2. 594 Unknown [id number] 2.16.840.1.791524.3.579.2. 462 Unknown [id number] 2.16.840.1.315546.3.579.2. 462 Unknown [id number] 2.16.840.1.146413.3.579.2. 462 Unknown [id number] 2.16.840.1.726110.3.579.2. 462 Unknown [id number] 2.16.840.1.296471.3.579.2. 462 Unknown [id number] 2.16.840.1.039016.3.579.2. 462 Unknown [id number] 2.16.840.1.208007.3.579.2. 462 Unknown [id number] 2.16840.1.579303.3.579.2. 462 Unknown [id number] 2.16.840.1.220284.3.579.2. 462 Unknown [id number] 2.16.840.1.178234.3.579.2. 462 Unknown [id number] 2.16.840.1.348647.3.579.2. 462 Unknown [id number] 2.16.840.1.659121.3.579.2. 462 Unknown [id number] 2.16.840.1.492335.3.579.2. 462 Unknown [id number] 2.16.840.1.691902.3.579.2. 462 Unknown [id number] 2.16.840.1.440593.3.579.2. 462 Unknown [id number] 2.16.840.1.718467.3.579.2. 462 Unknown [id number] 2.16.840.1.647032.3.579.2. 462 Unknown [id number] 2.16.840.1.483855.3.579.2. 462 Unknown [id number] 2.16.840.1.917142.3.579.2. 462 Unknown [id number] 2.16.840.1.145842.3.579.2. 462 Unknown [id number] 2.16.840.1.285015.3.579.2. 462 Unknown [id number] 2.16.840.1.049979.3.579.2. 462 Unknown [id number] 2.16.840.1.943216.3.579.2. 462 Unknown [id number] 2.840.1.859435.3.579.2. 462 Unknown [id number] 2.840.1.848641.3.579.2. 462 Unknown [id number] 2.840.1.457095.3.579.2. 462 Unknown [id number] 2.840.1.775034.3.579.2. 462 Unknown [id number] 2.840.1.406630.3.579.2. 462 Unknown [id number] 2.840.1.159660.3.579.2. 462 Unknown [id number] 2.840.1.351121.3.579.2. 462 Unknown [id number] 2.840.1.956221.3.579.2. 462 Unknown [id number] 2.840.1.567388.3.579.2. 462 Unknown [id number] 2.16840.1.858069.3.579.2. 462 Unknown [id number] 2.16840.1.432776.3.579.2. 462 Unknown [id number] 2.16840.1.603801.3.579.2. 462 Unknown [id number] 2.16840.1.828074.3.579.2. 462 Unknown [id number] 2.16840.1.096033.3.579.2. 462 Unknown [id number] 2.16.840.1.074892.3.579.2. 462 Social History Date Type Detail Facility Start: 02-15-2019 End: 07-19-2024 [facility] Start: 02-15-2019 End: 09-22-2024 [facility] Start: 1985 [facility] Start: 04-07-2022 End: 07-30-2022 Never a smoker Never a smoker [facility] Sex Assigned At [facility] Start: 05-19-2021 End: 04-06-2023 Tobacco smoking status VAIS Unknown if ever smoked [facility] Start: 04-27-2020 None [facility] Start: 04-27-2020 Alone [facility] Start: 08-08-2020 Non-smoker [facility] Start: 1985 Sex Assigned At Female [facility] Start: 04-16-2021 End: 10-10-2021 Alcohol intake Current non-drinker of alcohol (finding) [facility] Start: 03-07-2009 History SDOH Alcohol Comment Seldom [facility] Start: 06-24-2021 End: 08-06-2023 Exposure to SARS-CoV-2 (event) Not sure [facility] Start: 04-07-2022 End: 07-30-2022 Tobacco use panel [facility] Adult Depression Screening Assessment 1 [facility] Start: 05-03-2022 Gender identity Identifies as female gender (finding) [facility] Start: 04-06-2023 End: 11-05-2023 Alcohol intake Defer [facility] Work Phone: Start: 06-11-2023 End: 08-17-2023 Exposure to SARS-CoV-2 (event) Unable to assess [facility] Start: 01-12-2024 Tobacco use and exposure Smokeless tobacco non-user [facility] Start: 01-27-2010 End: 07-19-2024 Sex Female (finding) [facility] NEGATED: Highlighted row [facility] Medical Equipment Procedure Code Equipment Code Equipment Original Text Equipment Identifier Dates Total cholecystectomy with exploration of common bile duct CLIP,HEMLIBAN HERRERA FDA Start: 10-27-2019 Total cholecystectomy with exploration of common bile duct CLIP,HEMLIBAN HERRERA FDA Start: 10-27-2019 Total cholecystectomy with exploration of common bile duct DRESSING,INTERCEE D 3X4 FDA Start: 10-27-2019 Total cholecystectomy with exploration of common bile duct CLIP,HEMLIBAN HERRERA FDA Start: 10-27-2019 Total cholecystectomy with exploration of common bile duct CLIP,HEMLIBAN HERRERA FDA Start: 10-27-2019 Total cholecystectomy with exploration of common bile duct DRESSING,INTERCEE D 3X4 FDA Start: 10-27-2019 Total cholecystectomy with exploration of common bile duct CLIP,HEMLIBAN HERRERA FDA Start: 10-27-2019 Total cholecystectomy with exploration of common bile duct CLIP,HEMLIBAN HERRERA FDA Start: 10-27-2019 Total cholecystectomy with exploration of common bile duct DRESSING,INTERCEE D 3X4 FDA Start: 10-27-2019 Total cholecystectomy with exploration of common bile duct CLIP,HEMLIBAN HERRERA FDA Start: 10-27-2019 Total cholecystectomy with exploration of common bile duct CLIP,HEMLIBAN HERRERA FDA Start: 10-27-2019 Total cholecystectomy with exploration of common bile duct DRESSING,INTERCEE D 3X4 FDA Start: 10-27-2019 Total cholecystectomy with exploration of common bile duct CLIP,HEMLIBAN HERRERA FDA Start: 10-27-2019 Total cholecystectomy with exploration of common bile duct CLIP,HEMLIBAN HERRERA FDA Start: 10-27-2019 Total cholecystectomy with exploration of common bile duct DRESSING,INTERCEE D 3X4 FDA Start: 10-27-2019 Total cholecystectomy with exploration of common bile duct CLIP,HEMLIBAN HERRERA FDA Start: 10-27-2019 Total cholecystectomy with exploration of common bile duct CLIP,HEMOLORHYS HERRERA FDA Start: 10-27-2019 Total cholecystectomy with exploration of common bile duct DRESSING,INTERCEE D 3X4 FDA Start: 10-27-2019 Total cholecystectomy with exploration of common bile duct CLIP,HEMLIBAN HERRERA FDA Start: 10-27-2019 Total cholecystectomy with exploration of common bile duct CLIP,DONNA HERRERA FDA Start: 10-27-2019 Total cholecystectomy with exploration of common bile duct DRESSING,INTERCEE D 3X4 FDA Start: 10-27-2019 Total cholecystectomy with exploration of common bile duct CLIP,HEMLIBAN HERRERA FDA Start: 10-27-2019 Total cholecystectomy with exploration of common bile duct CLIP,HEMLIBAN HERRERA FDA Start: 10-27-2019 Total cholecystectomy with exploration of common bile duct DRESSING,INTERCEE D 3X4 FDA Start: 10-27-2019 Total cholecystectomy with exploration of common bile duct CLIP,HEMLIBAN HERRERA FDA Start: 10-27-2019 Total cholecystectomy with exploration of common bile duct CLIP,HEMLIBAN HERRERA FDA Start: 10-27-2019 Total cholecystectomy with exploration of common bile duct DRESSING,INTERCEE D 3X4 FDA Start: 10-27-2019 Total cholecystectomy with exploration of common bile duct CLIP,DONNA HERRERA FDA Start: 10-27-2019 Total cholecystectomy with exploration of common bile duct CLIP,DONNA HERRERA FDA Start: 10-27-2019 Total cholecystectomy with exploration of common bile duct DRESSING,INTERCEE D 3X4 FDA Start: 10-27-2019 Total cholecystectomy with exploration of common bile duct CLIP,HEMLIBAN HERRERA FDA Start: 10-27-2019 Total cholecystectomy with exploration of common bile duct CLIP,HEMLIBAN HERRERA FDA Start: 10-27-2019 Total cholecystectomy with exploration of common bile duct DRESSING,INTERCEE D 3X4 FDA Start: 10-27-2019 Total cholecystectomy with exploration of common bile duct CLIP,DONNA HERRERA FDA Start: 10-27-2019 Total cholecystectomy with exploration of common bile duct CLIP,HEMLIBAN HERRERA FDA Start: 10-27-2019 Total cholecystectomy with exploration of common bile duct DRESSING,INTERCEE D 3X4 FDA Start: 10-27-2019 Total cholecystectomy with exploration of common bile duct CLIP,HEMLIBAN HERRERA FDA Start: 10-27-2019 Total cholecystectomy with exploration of common bile duct CLIP,HEMLIBAN HERRERA FDA Start: 10-27-2019 Total cholecystectomy with exploration of common bile duct DRESSING,INTERCEE D 3X4 FDA Start: 10-27-2019 Total cholecystectomy with exploration of common bile duct CLIP,DONNA HERRERA FDA Start: 10-27-2019 Total cholecystectomy with exploration of common bile duct CLIP,HEMJERMAINECK MED WECK FDA Start: 10-27-2019 Total cholecystectomy with exploration of common bile duct DRESSING,INTERCEE D 3X4 FDA Start: 10-27-2019 Total cholecystectomy with exploration of common bile duct CLIP,HEMLIBAN HERRERA FDA Start: 10-27-2019 Total cholecystectomy with exploration of common bile duct CLIP,HEMLIBAN HERRERA FDA Start: 10-27-2019 Total cholecystectomy with exploration of common bile duct DRESSING,INTERCEE D 3X4 FDA Start: 10-27-2019 Total cholecystectomy with exploration of common bile duct CLIP,DONNA HERRERA FDA Start: 10-27-2019 Total cholecystectomy with exploration of common bile duct CLIP,HEMLIBAN HERRERA FDA Start: 10-27-2019 Total cholecystectomy with exploration of common bile duct DRESSING,INTERCEE D 3X4 FDA Start: 10-27-2019 Total cholecystectomy with exploration of common bile duct CLIP,DONNA HERRERA FDA Start: 10-27-2019 Total cholecystectomy with exploration of common bile duct CLIP,DONNA HERRERA FDA Start: 10-27-2019 Total cholecystectomy with exploration of common bile duct DRESSING,INTERCEE D 3X4 FDA Start: 10-27-2019 Total cholecystectomy with exploration of common bile duct CLIP,DONNA HERRERA FDA Start: 10-27-2019 Total cholecystectomy with exploration of common bile duct CLIP,DONNA HERRERA FDA Start: 10-27-2019 Total cholecystectomy with exploration of common bile duct DRESSING,INTERCEE D 3X4 FDA Start: 10-27-2019 Total cholecystectomy with exploration of common bile duct CLIP,DONNA HERRERA FDA Start: 10-27-2019 Total cholecystectomy with exploration of common bile duct CLIP,HEMLIBAN HERRERA FDA Start: 10-27-2019 Total cholecystectomy with exploration of common bile duct DRESSING,INTERCEE D 3X4 FDA Start: 10-27-2019 Total cholecystectomy with exploration of common bile duct CLIP,HEMLIBAN HERRERA FDA Start: 10-27-2019 Total cholecystectomy with exploration of common bile duct CLIP,HEMLIBAN HERRERA FDA Start: 10-27-2019 Total cholecystectomy with exploration of common bile duct DRESSING,INTERCEE D 3X4 FDA Start: 10-27-2019 Total cholecystectomy with exploration of common bile duct CLIP,DONNA HERRERA FDA Start: 10-27-2019 Total cholecystectomy with exploration of common bile duct CLIP,HEMLIBAN HERRERA FDA Start: 10-27-2019 Total cholecystectomy with exploration of common bile duct DRESSING,INTERCEE D 3X4 FDA Start: 10-27-2019 Total cholecystectomy with exploration of common bile duct CLIP,HEMLIBAN HERRERA FDA Start: 10-27-2019 Total cholecystectomy with exploration of common bile duct CLIP,HEMLIBAN HERRERA FDA Start: 10-27-2019 Total cholecystectomy with exploration of common bile duct DRESSING,INTERCEE D 3X4 FDA Start: 10-27-2019 Total cholecystectomy with exploration of common bile duct CLIP,HEMLIBAN HERRERA FDA Start: 10-27-2019 Total cholecystectomy with exploration of common bile duct CLIP,HEMLIBAN HERRERA FDA Start: 10-27-2019 Total cholecystectomy with exploration of common bile duct DRESSING,INTERCEE D 3X4 FDA Start: 10-27-2019 Total cholecystectomy with exploration of common bile duct CLIP,DONNA HERRERA FDA Start: 10-27-2019 Total cholecystectomy with exploration of common bile duct CLIP,DONNA HERRERA FDA Start: 10-27-2019 Total cholecystectomy with exploration of common bile duct DRESSING,INTERCEE D 3X4 FDA Start: 10-27-2019 Total cholecystectomy with exploration of common bile duct CLIP,DONNA HERRERA FDA Start: 10-27-2019 Total cholecystectomy with exploration of common bile duct CLIP,DONNA HERRERA FDA Start: 10-27-2019 Total cholecystectomy with exploration of common bile duct DRESSING,INTERCEE D 3X4 FDA Start: 10-27-2019 Total cholecystectomy with exploration of common bile duct CLIP,DONNA HERRERA FDA Start: 10-27-2019 Total cholecystectomy with exploration of common bile duct CLIP,HEMLIBAN HERRERA FDA Start: 10-27-2019 Total cholecystectomy with exploration of common bile duct DRESSING,INTERCEE D 3X4 FDA Start: 10-27-2019 Total cholecystectomy with exploration of common bile duct CLIP,HEMLIBAN HERRERA FDA Start: 10-27-2019 Total cholecystectomy with exploration of common bile duct CLIP,HEMLIBAN HERRERA FDA Start: 10-27-2019 Total cholecystectomy with exploration of common bile duct DRESSING,INTERCEE D 3X4 FDA Start: 10-27-2019 Total cholecystectomy with exploration of common bile duct CLIP,DONNA HERRERA FDA Start: 10-27-2019 Total cholecystectomy with exploration of common bile duct CLIP,HEMLIBAN HERRERA FDA Start: 10-27-2019 Total cholecystectomy with exploration of common bile duct DRESSING,INTERCEE D 3X4 FDA Start: 10-27-2019 Total cholecystectomy with exploration of common bile duct CLIP,HEMLIBAN HERRERA FDA Start: 10-27-2019 Total cholecystectomy with exploration of common bile duct CLIP,HEMLIBAN HERRERA FDA Start: 10-27-2019 Total cholecystectomy with exploration of common bile duct DRESSING,INTERCEE D 3X4 FDA Start: 10-27-2019 Total cholecystectomy with exploration of common bile duct CLIP,HEMLIBAN HERRERA FDA Start: 10-27-2019 Total cholecystectomy with exploration of common bile duct CLIP,HEMLIBAN [employer] W[employer]YS FDA Start: 10-27-2019 Total cholecystectomy with exploration of common bile duct DRESSING,INTERCEE D 3X4 FDA Start: 10-27-2019 Total cholecystectomy with exploration of common bile duct CLIP,DONNA HERRERA FDA Start: 10-27-2019 Total cholecystectomy with exploration of common bile duct CLIP,DONNA HERRERA FDA Start: 10-27-2019 Total cholecystectomy with exploration of common bile duct DRESSING,INTERCEE D 3X4 FDA Start: 10-27-2019 Total cholecystectomy with exploration of common bile duct CLIP,DONNA HERRERA FDA Start: 10-27-2019 Total cholecystectomy with exploration of common bile duct CLIP,DONNA HERRERA FDA Start: 10-27-2019 Total cholecystectomy with exploration of common bile duct DRESSING,INTERCEE D 3X4 FDA Start: 10-27-2019 Total cholecystectomy with exploration of common bile duct FDA Start: 10-27-2019 Total cholecystectomy with exploration of common bile duct FDA Start: 10-27-2019 Total cholecystectomy with exploration of common bile duct FDA Start: 10-27-2019 Total cholecystectomy with exploration of common bile duct FDA Start: 10-27-2019 Total cholecystectomy with exploration of common bile duct FDA Start: 10-27-2019 Total cholecystectomy with exploration of common bile duct FDA Start: 10-27-2019 Total cholecystectomy with exploration of common bile duct FDA Start: 10-27-2019 Total cholecystectomy with exploration of common bile duct FDA Start: 10-27-2019 Total cholecystectomy with exploration of common bile duct FDA Start: 10-27-2019 Total cholecystectomy with exploration of common bile duct CLIP,DONNA HERRERA FDA Start: 10-27-2019 Total cholecystectomy with exploration of common bile duct CLIP,HEMLIBAN HERRERA FDA Start: 10-27-2019 Total cholecystectomy with exploration of common bile duct DRESSING,INTERCEE D 3X4 FDA Start: 10-27-2019 Total cholecystectomy with exploration of common bile duct FDA Start: 10-27-2019 Total cholecystectomy with exploration of common bile duct FDA Start: 10-27-2019 Total cholecystectomy with exploration of common bile duct FDA Start: 10-27-2019 Total cholecystectomy with exploration of common bile duct CLIP,HEMOLOCK [employer] WECK FDA Start: 10-27-2019 Total cholecystectomy with exploration of common bile duct CLIP,HEMOLOCK [employer] FDA Start: 10-27-2019 Total cholecystectomy with exploration of common bile duct DRESSING,INTERCEE D 3X4 FDA Start: 10-27-2019 XIOMY 3GRM HEMOSTAT ABS FDA Start: 10-27-2019 XIOMY 3GRM HEMOSTAT ABS FDA Start: 10-27-2019 XIOMY 3GRM HEMOSTAT ABS FDA Start: 10-27-2019 XIOMY 3GRM HEMOSTAT ABS FDA Start: 10-27-2019 XIOMY 3GRM HEMOSTAT ABS FDA Start: 10-27-2019 XIOMY 3GRM HEMOSTAT ABS FDA Start: 10-27-2019 XIOMY 3GRM HEMOSTAT ABS FDA Start: 10-27-2019 XIOMY 3GRM HEMOSTAT ABS FDA Start: 10-27-2019 XIOMY 3GRM HEMOSTAT ABS FDA Start: 10-27-2019 XIOMY 3GRM HEMOSTAT ABS FDA Start: 10-27-2019 XIOMY 3GRM HEMOSTAT ABS FDA Start: 10-27-2019 XIOMY 3GRM HEMOSTAT ABS FDA Start: 10-27-2019 XIOMY 3GRM HEMOSTAT ABS FDA Start: 10-27-2019 XIOMY 3GRM HEMOSTAT ABS FDA Start: 10-27-2019 XIOMY 3GRM HEMOSTAT ABS FDA Start: 10-27-2019 XIOMY 3GRM HEMOSTAT ABS FDA Start: 10-27-2019 XIOMY 3GRM HEMOSTAT ABS FDA Start: 10-27-2019 XIOMY 3GRM HEMOSTAT ABS FDA Start: 10-27-2019 XIOMY 3GRM HEMOSTAT ABS FDA Start: 10-27-2019 XIOMY 3GRM HEMOSTAT ABS FDA Start: 10-27-2019 XIOMY 3GRM HEMOSTAT ABS FDA Start: 10-27-2019 XIOMY 3GRM HEMOSTAT ABS FDA Start: 10-27-2019 XIOMY 3GRM HEMOSTAT ABS FDA Start: 10-27-2019 XIOMY 3GRM HEMOSTAT ABS FDA Start: 10-27-2019 XIOMY 3GRM HEMOSTAT ABS FDA Start: 10-27-2019 XIOMY 3GRM HEMOSTAT ABS FDA Start: 10-27-2019 XIOMY 3GRM HEMOSTAT ABS FDA Start: 10-27-2019 XIOMY 3GRM HEMOSTAT ABS FDA Start: 10-27-2019 XIOMY 3GRM HEMOSTAT ABS FDA Start: 10-27-2019 XIOMY 3GRM HEMOSTAT ABS FDA Start: 10-27-2019 XIOMY 3GRM HEMOSTAT ABS FDA Start: 10-27-2019 XIOMY 3GRM HEMOSTAT ABS FDA Start: 10-27-2019 FDA Start: 10-27-2019 FDA Start: 10-27-2019 FDA Start: 10-27-2019 XIOMY 3GRM HEMOSTAT ABS FDA Start: 10-27-2019 FDA Start: 10-27-2019 XIOMY 3GRM HEMOSTAT ABS FDA Start: 10-27-2019 Goals Date Patient Goal Desired Activity /State Functional Status Date Assessment Result Facility 04-24-2024 Functional Status [facility] 04-23-2024 Functional Status Standard Safet y ID band on, Allergy Band on, Call device within reach, Bed in low position, Wheels locked, Upper/Half-Length side-rails up, Phone within reach, Safety level maintained [facility] 11-03-2023 Functional Status [facility] 03-14-2023 Functional Status [facility] 03-12-2023 Functional Status Repositions self [facility] 12-11-2022 Functional Status Minimum assistance [facility] 12-11-2022 Functional Status ID band on, Allergy Band on, Call device within reach, Bed in low position, Wheels locked, Upper/Half-Length side-rails up, Visitor at bedside [facility] 12-01-2022 Functional Status ID band on, Allergy Band on, Call device within reach, Bed in low position, Wheels locked, Upper/Half-Length side-rails up, Bedside Cart Locked, Visitor at bedside [facility] 12-01-2022 [facility] Are you deaf, or do you have serious difficulty hearing No 02/11/2022 2:04 PM Britney Barber, RONNY No [facility] 02-11-2022 Are you blind, or do you have serious difficulty seeing, even when wearing glasses No 02/11/2022 2:04 PM Britney Barber, RONNY No [facility] 02-11-2022 Do you have serious difficulty walking or climbing stairs No 02/11/2022 2:04 PM Britney Barber RN No [facility] 02-11-2022 Do you have difficul ty dressing or bathing No 02/11/2022 2:04 PM Britney Barber, RONNY No [facility] 02-11-2022 Because of a physica l, mental, or emotional condition, do you have difficulty doing errands alone such as visiting a physician's office or shopping No 02/11/2022 2:04 PM Britney Barber, RONNY No [facility] 07-25-2021 [facility] 07-25-2021 Functional Status [place] [facility] Mental Status Date Assessment Result Facility 06-08-2024 Cognitive function Voice/Name [facility] Work Phone: 04-24-2024 Mental Status Orientation Oriented x 4 [facility]3] 04-23-2024 Mental Status [facility] 11-03-2023 Mental Status Orientation Oriented x 4 [facility]3] 07-15-2023 Cognitive function Level Of Cons ciousness Follows Commands;Drowsy [facility] Work Phone: 03-14-2023 Mental Status Orientation Oriented x 4 [facility]3] 03-14-2023 Mental Status [facility] 03-13-2023 Cognitive function Level Of Cons ciousness Awake;Alert;Appropriate;Fol lows Commands [facility] Work Phone: 03-12-2023 Mental Status Orientation Oriented x 4 [facility]3] 12-11-2022 Mental Status Orientation Oriented x 4 [facility]3] 12-11-2022 Mental Status [facility] 12-01-2022 Mental Status Orientation Oriented x 4 [facility]3] 12-01-2022 Mental Status [facility] 02-11-2022 Because of a physica l, mental, or emotional condition, do you have serious difficulty concentrating, remembering, or making decisions No 02/11/2022 2:04 PM Britney Barber, RONNY [facility] 12-03-2021 Cognitive function Level Of Cons ciousness Awake;Alert [facility] Work Phone: 07-25-2021 Mental Status [facility] 07-25-2021 Mental Status [facility] Clinical Notes 09-11-2013 to 10-10-2024 Note Date & Type Note Facility 10-10-2024 Progress note Note Date/Time October 10, 2024 4:20pm [facility] [address] [place] [address] OFFICE VISIT Date of Service: 10/10/24 MR#: [id number] Acct: [id number] Name: KAYA ARCE Rep #: [id number] : 1985 Provider: HARVINDER Castaneda Age/Sex: 39/F [place] [facility] [place] Status: Signed Intake Vital Signs 07/19/24 02:05 Height 5 ft 3 in Intake Visit Reasons: DISCUSS MEDS Chief Complaint: IBD Allergies cephalexin monohydrate (From Keflex) Allergy (Severe, Verified 09/08/24 09:33) Anaphylaxis cyclobenzaprine (From Flexeril) Allergy (Severe, Verified 09/08/24 09:33) Mental status change latex Allergy (Mild, Verified 09/08/24 09:33) Swelling eucalyptus Adverse Reaction (Severe, Verified 09/08/24 09:33) tachycardia, close airway NSAIDS (Non-Steroidal Anti-Inflamma Adverse Reaction (Severe, Verified 09/08/24 09:33) GI upset tamsulosin (From Flomax) Adverse Reaction (Severe, Verified 09/08/24 09:33) Low BP/HR tizanidine Adverse Reaction (Severe, Verified 09/08/24 09:33) Low HR ciprofloxacin (From Cipro) Adverse Reaction (Verified 09/08/24 09:33) diarrhea, nausea, tachycardia Nurse's Note: OV 10/10/24 Pt here for a f/u and reports diarrhea, blood in stools, gas, bloating, and heartburn. [facility] Medical History Abdominal pain Lupus Rheumatoid arthritis Interstitial cystitis History of DVT (deep vein thrombosis) Injury of head and neck History of diverticulitis History of Crohn's disease Shortness of breath on exertion History of edema History of stress test History of echocardiogram Cardiology follow-up encounter History of atrial fibrillation Ovarian cancer Left leg paresthesias Lumbar strain Kidney stones Medullary sponge kidney of both kidneys Kidney disease Acute maxillary sinusitis, unspecified Diarrhea History of Lyme disease Reflux involving intestinal tract POTS (postural orthostatic tachycardia syndrome) Wears glasses Anemia History of steroid therapy History of fatty infiltration of liver Non-smoker Leg cramps Edema Irregular heart beat Migraine headache Restless legs Back pain Syncope Ectopic cardiac beats Sinus tachycardia Symptomatic bradycardia lysis of adensions (~09/2019) Hepatic steatosis Acid reflux Asthma Sleep apnea Anxiety Hypertension Arthritis History of back problems h/o lesion removal Fatigue Endometriosis Ovarian cyst Hematochezia PCOS (polycystic ovarian syndrome) Ankylosing spondylitis Exercise-induced asthma Mitral regurgitation Tachycardia Prolapse of intestine Diverticulosis Hemorrhoids Anal fissure Surgical History History of surgery History of hysterectomy History of cholecystectomy H/O cystoscopy (~09/2019) H/O dilation and curettage (~09/2019) Hx laparoscopic cholecystectomy (~09/2019) Hx of removal of ovary History of hernia repair History of Family History Mother Heart disease Hypertension Father Heart disease Diabetes Hypertension Social History Smoking Status: Never smoker Electronic Cigarette Use: not used second hand exposure: No alcohol intake: never substance use type: does not use caffeine: No what type of physical activity do you participate in: walking frequency: 5-6 times per week seatbelt use: always do you feel safe at home: Yes additional social history: Single- Currently unemployed HPI HPI Chief Complaint: IBD Details: KAYA ARCE, is a 39 F who presents to the office today for f/u. BGI established in 2020 with constipaton and diarrhea. Diagnosed with IBD at age1. Disease controlled in the past with oral medications including 5-ASAs and steroids. Stated on Budesonide MRI pel 5..22 endometriosis with fibrosis/infiltrative endometriosis; sigmoid and cecum tethering to right sidewall/right ovarian lesion and fibrous tethering to rectum. EGD & Colonoscopy 07.15.23 EGD Normal esophagus. Erythematous mucosa in the gastric body. Biopsied. Erythematous duodenopathy. Biopsied. Colonoscopy Hemorrhoids found on perianal exam. Friability with no bleeding in the rectum, in the sigmoid colon and in the transverse colon. Biopsied.The examined portion of the ileum was normal. Biopsied. Capsule endoscopy 24; bile gastritis, enteritis with small non bleeding AVMs throughout the small bowel. Stricture at 2h 15mwith abnormal folding, largeAVM with inflammation in the TI Last OV 5.14.25 Pt has been on Humira however notices symptoms just a week afterinjection. Antibodies positive. Recommend Rinvoq however dishwashing machine repairer advised against due HS. *recommend skyrirzi. Pt with questions and scheduled office visit to discuss OV 7.15.25 PT here to discuss current IBD treatment. SHe has been on Humira overthe past few months. Her symptoms are typically controlled for the first week after injection and then she develops loose stool again. She has also started tohave a large "welt' at the site of the injection. When she was on Hyrimoz she had diffuse hives which is the reason she was switched to Humira. ROS Const Constitutional: Positive for fatigue and weight change; No fever(s) ENT ENT: No difficulty swallowing Cardio Cardiology: Positive for leg pain with exertion Gastro GI: Positive for abdominal pain, bloating, diarrhea, heartburn, excessive flatusand Blood in stool; No belching, change in bowel habits, change in stool character, coffee ground emesis, constipation, cramping, difficulty swallowing, feeling full early, incontinent of stools, Vomiting blood/hematemesis, loose stools, Black,tarry stools, nausea/dyspepsia, pain with swallowing, vomiting or other Musc Musculoskeletal: Positive for abnormal gait, joint pain, back pain, joint swelling, muscle weakness, stiffness, Arthritis, leg pain at night and leg pain with exertion Skin Skin: Positive for lesions, itchy eyes and rash; No yellowing of the eye Neuro Neurology: Positive for abnormal gait Psych Psychiatric: No anxiety and No depression Endo Endocrine: Positive for fatigue and weight change Aller/Imm Allergy/Immunologic: Positive for itchy eyes Marcus/Lymp Hematologic/Lymphatic: No easy bleeding or easy bruising Exam Const General: cooperative, healthy appearing and comfortable Orientation: alert HENMT Head: normal to inspection Eyes General: appearance normal, both eyes and all related structures Neck Neck: normal visual inspection Chest Chest palpation & inspection: normal inspection of the chest Resp Effort & Inspection: normal respiratory effort GI Inspection: normal to inspection Assessment and Plan Assessment and Plan (1) Crohn's disease: Status: Acute Qualifiers: Gastrointestinal tract location: small intestine Digestive disease complication type: with rectal bleeding Qualified Code(s): K50.011 - Crohn's disease of small intestine with rectal bleeding Plan: Kaya is a 39 yo female pt with Crohns disease here today for discussion of discontinuing Humira and starting skyrizi. Pt has relief in her symptoms for thefirst week after injection however she starts to have loose stool again about a week later. She does not feel her symptoms are well controlled. Last Humira level was 6.8 with no antibodies. Recommendation per Dr. Junior was to start Rinvoq however pt discussed with dishwashing machine repairer and with hx of HS it was not advised. The plan was then to start her on skyrizi however pt had questions and concerns. All questions answered today and she was agreeable to move forward with skyrizi. SHe will continue Humira injections until approved for Skyrizi. -Start Skyrizi -f/u with Dr. Junior Coding Level of Care Code Off vis,est,level 3 Diagnoses Crohn's disease of small intestine with rectal bleeding K50.011 Gastrointestinal tract location: small intestine Digestive disease complication type: with rectal bleeding 10/10/24 1620 <Electronically signed by Mey BLANTON> Date _ Mey BLANTON Cosigner Signature: Date (if applicable) CC: ~ [facility] Work Phone: [phone] [facility] [address] [address] OFFICE VISIT Date of Service: 10/10/24 MR#: [id number] Acct: [id number] Name: KAYA ARCE Rep #: [id number] : 1985 Provider: HARVINDER Castaneda Age/Sex: 39/F [place] [facility] [place] Status: Signed Intake Vital Signs 07/19/24 02:05 Height 5 ft 3 in Intake Visit Reasons: DISCUSS MEDS Chief Complaint: IBD Allergies cephalexin monohydrate (From Keflex) Allergy (Severe, Verified 09/08/24 09:33) Anaphylaxis cyclobenzaprine (From Flexeril) Allergy (Severe, Verified 09/08/24 09:33) Mental status change latex Allergy (Mild, Verified 09/08/24 09:33) Swelling eucalyptus Adverse Reaction (Severe, Verified 09/08/24 09:33) tachycardia, close airway NSAIDS (Non-Steroidal Anti-Inflamma Adverse Reaction (Severe, Verified 09/08/24 09:33) GI upset tamsulosin (From Flomax) Adverse Reaction (Severe, Verified 09/08/24 09:33) Low BP/HR tizanidine Adverse Reaction (Severe, Verified 09/08/24 09:33) Low HR ciprofloxacin (From Cipro) Adverse Reaction (Verified 09/08/24 09:33) diarrhea, nausea, tachycardia Nurse's Note: OV 07/15/25 Pt here for a f/u and reports diarrhea, blood in stools, gas, bloating, and heartburn. PFSH Medical History Abdominal pain Lupus Rheumatoid arthritis Interstitial cystitis History of DVT (deep vein thrombosis) Injury of head and neck History of diverticulitis History of Crohn's disease Shortness of breath on exertion History of edema History of stress test History of echocardiogram Cardiology follow-up encounter History of atrial fibrillation Ovarian cancer Left leg paresthesias Lumbar strain Kidney stones Medullary sponge kidney of both kidneys Kidney disease Acute maxillary sinusitis, unspecified Diarrhea History of Lyme disease Reflux involving intestinal tract POTS (postural orthostatic tachycardia syndrome) Wears glasses Anemia History of steroid therapy History of fatty infiltration of liver Non-smoker Leg cramps Edema Irregular heart beat Migraine headache Restless legs Back pain Syncope Ectopic cardiac beats Sinus tachycardia Symptomatic bradycardia lysis of adensions (~09/2019) Hepatic steatosis Acid reflux Asthma Sleep apnea Anxiety Hypertension Arthritis History of back problems h/o lesion removal Fatigue Endometriosis Ovarian cyst Hematochezia PCOS (polycystic ovarian syndrome) Ankylosing spondylitis Exercise-induced asthma Mitral regurgitation Tachycardia Prolapse of intestine Diverticulosis Hemorrhoids Anal fissure Surgical History History of surgery History of hysterectomy History of cholecystectomy H/O cystoscopy (~09/2019) H/O dilation and curettage (~09/2019) Hx laparoscopic cholecystectomy (~09/2019) Hx of removal of ovary History of hernia repair History of Family History Mother Heart disease Hypertension Father Heart disease Diabetes Hypertension Social History Smoking Status: Never smoker Electronic Cigarette Use: not used second hand exposure: No alcohol intake: never substance use type: does not use caffeine: No what type of physical activity do you participate in: walking frequency: 5-6 times per week seatbelt use: always do you feel safe at home: Yes additional social history: Single- Currently unemployed HPI HPI Chief Complaint: IBD Details: KAYA ARCE, is a 39 F who presents to the office today for f/u. I established in 2020 with constipaton and diarrhea. Diagnosed with IBD at age1. Disease controlled in the past with oral medications including 5-ASAs and steroids. Stated on Budesonide MRI pel 5.3.22 endometriosis with fibrosis/infiltrative endometriosis; sigmoid and cecum tethering to right sidewall/right ovarian lesion and fibrous tethering to rectum. EGD & Colonoscopy 07.15.23 EGD Normal esophagus. Erythematous mucosa in the gastric body. Biopsied. Erythematous duodenopathy. Biopsied. Colonoscopy Hemorrhoids found on perianal exam. Friability with no bleeding in the rectum, in the sigmoid colon and in the transverse colon. Biopsied.The examined portion of the ileum was normal. Biopsied. Capsule endoscopy 12.09.23; bile gastritis, enteritis with small non bleeding AVMs throughout the small bowel. Stricture at 2h 15mwith abnormal folding, largeAVM with inflammation in the TI Last OV 08.09.24 Pt has been on Humira however notices symptoms just a week afterinjection. Antibodies positive. Recommend Rinvoq however dishwashing machine repairer advised against due HS. *recommend skyrirzi. Pt with questions and scheduled office visit to discuss OV 10.10.24 PT here to discuss current IBD treatment. SHe has been on Humira overthe past few months. Her symptoms are typically controlled for the first week after injection and then she develops loose stool again. She has also started tohave a large "welt' at the site of the injection. When she was on Hyrimoz she had diffuse hives which is the reason she was switched to Humira. ROS Const Constitutional: Positive for fatigue and weight change; No fever(s) ENT ENT: No difficulty swallowing Cardio Cardiology: Positive for leg pain with exertion Gastro GI: Positive for abdominal pain, bloating, diarrhea, heartburn, excessive flatusand Blood in stool; No belching, change in bowel habits, change in stool character, coffee ground emesis, constipation,cramping, difficulty swallowing, feeling full early, incontinent of stools, Vomiting blood/hematemesis, loose stools, Black,tarry stools, nausea/dyspepsia, pain with swallowing, vomiting or other Musc Musculoskeletal: Positive for abnormal gait, joint pain, back pain, joint swelling, muscle weakness, stiffness, Arthritis, leg pain at night and leg pain with exertion Skin Skin: Positive for lesions, itchy eyes and rash; No yellowing of the eye Neuro Neurology: Positive for abnormal gait Psych Psychiatric: No anxiety and No depression Endo Endocrine: Positive for fatigue and weight change Aller/Imm Allergy/Immunologic: Positive for itchy eyes Marcus/Lymp Hematologic/Lymphatic: No easy bleeding or easy bruising Exam Const General: cooperative, healthy appearing and comfortable Orientation: alert HENMT Head: normal to inspection Eyes General: appearance normal, both eyes and all related structures Neck Neck: normal visual inspection Chest Chest palpation & inspection: normal inspection of the chest Resp Effort & Inspection: normal respiratory effort GI Inspection: normal to inspection Assessment and Plan Assessment and Plan (1) Crohn's disease: Status: Acute Qualifiers: Gastrointestinal tract location: small intestine Digestive disease complication type: with rectal bleeding Qualified Code(s): K50.011 - Crohn's disease of small intestine with rectal bleeding Plan: Kaya is a 39 yo female pt with Crohns disease here today for discussion of discontinuing Humira and starting skyrizi. Pt has relief in her symptoms for thefirst week after injection however she starts to have loose stool again about a week later. She does not feel her symptoms are well controlled. Last Humira level was 6.8 with no antibodies. Recommendation per Dr. Junior was to start Rinvoq however pt discussed with dishwashing machine repairer and with hx of HS it was not advised. The plan was then to start her on skyrizi however pt had questions and concerns. All questions answered today and she was agreeable to move forward with skyrizi. SHe will continue Humira injections until approved for Skyrizi. -Start Skyrizi -f/u with Dr. Junior Coding Level of Care Code Off vis,est,level 3 Diagnoses Crohn's disease of small intestine with rectal bleeding K50.011 Gastrointestinal tract location: small intestine Digestive disease complication type: with rectal bleeding 10/10/24 1620 sov PA> Date _ Mey BLANTON Cosigner Signature: Date (if applicable) CC: ~ [facility]06-30-2025 Telephone encounter Note* Telephone Encounter - Martha Marino RN - 09/25/2024 9:04 AM EDT Patient returned call and given provider's message below and patient verbalized understanding. Yan Marino RN [facility]06-30-2025 Miscellaneous Notes* Telephone Encounter - Martha Marino RN - 09/25/2024 9:04 AM EDT Patient returned call and given provider's message below and patient verbalized understanding. Yan Marino RN * Telephone Encounter - Emily West MA - 09/23/2024 2:54 PM EDT Left VM instructing patient to return call to receive results. Emily West MA * Telephone Encounter - Alex Mistry PA - 09/23/2024 2:18 PM EDT Please contact patient let her know urine culture reveals no UTI. She needs follow-up with PCP to ensure resolution of blood in the urine [facility] Telephone encounter Note * Telephone Encounter - Martha Marino RN - 09/25/2024 9:03 AM EDT Pt given provider's message as copied below: Alex Mistry PA 09/23/24 2:18 PM Note Please contact patient let her know urine culture reveals no UTI. She needs follow-up with PCP to ensure resolution of blood in the urine Martha Marino RN [facility]06-30-2025 Miscellaneous Notes* Telephone Encounter - Martha Marino RN - 09/25/2024 9:03 AM EDT Pt given provider's message as copied below: Alex Mistry PA KA 09/23/24 2:18 PM Note Please contact patient let her know urine culture reveals no UTI. She needs follow-up with PCP to ensure resolution of blood in the urine Martha Marino RN [facility] Telephone encounter Note * Telephone Encounter - Emily West MA - 09/23/2024 2:54 PM EDT Left VM instructing patient to return call to receive results. Emily West MA [facility]06-28-2025 Telephone encounter Note* Telephone Encounter - Alex Mistry PA - 09/23/2024 2:18 PM EDT Please contact patient let her know urine culture reveals no UTI. She needs follow-up with PCP to ensure resolution of blood in the urine [facility]06-27-2025 NoteHNO ID: [id number] Author: LIZET HALE APRN.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 Service: ? Author Type: Nurse Practitioner Type: Progress Notes Filed: 09/22/2024 12:46 Note Text: [facility] Mike Kaya Arce is a 39 year old female. Patient presents with: Dizziness: L ear muffled and high pitched noise x3 days, causing vertigo and nausea Rash: R lower abd local reaction to Humira injection x1 day, has one hive spot L thigh Dizziness Associated symptoms include dizziness. Rash Ear Pain and Dizziness: - Ear pain primarily on the left side, with some on the right. - Woke up with complete hearing loss in the left ear. - Reports dizziness and vertigo, exacerbated by rapid eye or body movements. - Denies recent cough or congestion. - Denies recent similar episodes of vertigo. Humira Reaction: - Administered Humira injection one day early due to work schedule. - Developed a severe local reaction at the injection site, including redness, itching,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 for arthralgias and back pain. Hematological: Negative for adenopathy. Does not bruise/bleed easily. Psychiatric/Behavioral: Negative for agitation, behavioral problems and confusion. Vitals: Blood pressure 114/56, pulse 72, temperature 98.9 F (37.2 C), temperature source Oral, resp. rate 18, weight 85.6 kg (188 lb 12.8 oz), SpO2 96%. Physical Exam Constitutional: Appearance: Normal appearance. HENT: Head: Normocephalic. Mouth/Throat: Mouth: Mucous membranes are moist. Eyes: Conjunctiva/sclera: Conjunctivae normal. Cardiovascular: Rate and Rhythm: Normal rate and regular rhythm. Pulses: Normal pulses. Pulmonary: Effort: Pulmonary effort is normal. No respiratory distress. Breath sounds: Normal breath sounds. No wheezing. Abdominal: General: There is no distension. Palpations: Abdomen is soft. There is no mass. Tenderness: There is no abdominal tenderness. There is no guarding. Hernia: No hernia is present. Genitourinary: Comments: deferred Musculoskeletal: General: No swelling, tenderness or deformity. Cervical back: Normal range of motion. No rigidity. Skin: Coloration: Skin is not jaundiced. Neurological: General: No focal deficit present. Mental Status: She is alert and oriented to person, place, and time. Psychiatric: Mood and Affect: Mood normal. Behavior: Behavior normal. Thought Content: Thought content normal. Judgment: Judgment normal. Neurological Exam Mental Status Alert. Oriented to person, place, and time. Assessment and Plan Kaya Arce is a 38 y.o. 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 Tumor Board note as follows: "Serous phenotype confirmed. Dx: Low grade serous epithelial proliferation. Not meeting diagnostic criteria for low grade serous carcinoma. Elevated risk for possible peritoneal based low grade serous carcinoma was acknowledged. Surveillance recommended." Patient began to follow with Dr. Beltran at with pelvic ultrasounds, most recently pelvic US (10/07/23) right ovary (2.8 x 2.8 x 2.7cm) with a few small follicles. No pathol ogy noted. History, pathology and records reviewed, including imaging reports. Given no new symptoms or concerning imaging findings agree with surveillance at this time from a gynecologic oncology standpoint. Reviewed recent CT A/P and MRI - small R follicular cyst. Will hold off on additional imaging at thistime. CA-125 ordered per request. Additionally took time discussing current symptoms and potential f or perimenopause - will check AMH, FSH, estradiol, thyroid studies, and A1c. If labs show concern for early menopause/perimenopause - would favor starting HRT with estrogen patch. Will follow-up on labs. Continue care with PCP and GI for Crohn's. [facility] low libido. 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 Nick Mcmanus DO [facility] * Diagnosis Onset Date Resolution Status Admit Date Crohn's disease acute May 2:18pm Diarrhea acute May 29 2:18pm Dizziness acute May 29 2:18pm Left sided abdominal pain acute May 29, 2024 2:18pm Nausea & vomiting acute May 292024 2:18pm RLQ abdominal pain acute May 29, 2024 2:18pm Diarrhea acute August 09, 2024 7:59am Epigastric abdominal pain acute August 09, 2024 7:59am GI bleeding acute August 09 7:59am [facility] Work Phone: [phone] Evaluation note* Diagnosis Onset Date Resolution Status Admit Date Crohn's disease acute May 2:18pm Diarrhea acute May 29 2:18pm Dizziness acute May 29 2:18pm Left sided abdominal pain acute May 29, 2024 2:18pm Nausea & vomiting acute May 292024 2:18pm RLQ abdominal pain acute May 29, 2024 2:18pm Diarrhea acute August 09, 2024 7:59am Epigastric abdominal pain acute August 09, 2024 7:59am GI bleeding acute August 09 7:59am Lumbar radiculopathy acute September 08, 2024 9:28am Sacroiliitis acute September 08, 025 9:28am [facility] Work Phone: [phone]) 590-404101-27-2025 Hospital Discharge instructions Patient Education 04/24/2024 00:35:58 Abdominal Pain, Unknown Cause, (Female) Unknown Causes of Abdominal Pain (Female) The exact cause of your belly (abdominal) pain is not clear. This does not mean that this is something to worry about. Everyone likes to know the exact cause of the problem. But sometimes with belly pain, there is no clear-cut cause, and this could be a good thing. The good news is that your symptoms can be treated, and you will feel better. Your condition does not seem serious now. But sometimes the signs of a serious problem may take more time to appear. For this reason, it is important for you to watch for any new symptoms, problems, or worsening of your condition. Over the next few days, the abdominal pain may come and go. Or it may be constant. Other common symptoms can include nausea and vomiting. Sometimes it can be difficult to tell if you feel nauseous. You may just feel bad and not connect that feeling to nausea. Constipation, diarrhea, and a fever maygo along with the pain. The pain may continue even if treated correctly over the following days. Depending on how things go, sometimes the cause can become clear and may need more or different treatment. Additional evaluations, medicines, or tests may also be needed. Home care Your healthcare provider may prescribe medicine for pain, symptoms, or an infection. Follow the healthcare provider's instructions for taking these medicines. General care Rest as much as you can until your next exam. No strenuous activities. Try to find positions that ease discomfort. A small pillow placed on the abdomen may help relieve pain. Something warm on your abdomen (such as a heating pad) may help, but be careful not to burn yourself. Diet Don t force yourself to eat, especially if having cramps, vomiting, or diarrhea. Water is important so you don't get dehydrated. Soup may also be good. Sports drinks may also help,especially if they are not too acidic. Don't drink sugary drinks as this can make things worse. Take liquids in small amounts. Don t guzzle them. Caffeine sometimes makes the pain and cramping worse. Don t take dairy products if you have vomiting or diarrhea. Don't eat large amounts at a time. Wait a few minutes between bites. Eat a diet low in fiber (called a low-residue diet). Foods allowed include refined breads, white rice, fruit and vegetable juices without pulp, tender meats. These foods will pass more easily throughthe intestine. Don t have whole-grain foods, whole fruits and vegetables, meats, seeds and nuts, fried or fatty foods, dairy, alcohol and spicy foods until your symptoms go away. Follow-up care Follow up with your healthcare provider, or as advised, if your pain does not begin to improve in the next 24 hours. Call 911 Call 911 if any of these occur: Trouble breathing Confusion Fainting or loss of consciousness Rapid heart rate Seizure When to seek medical advice Call your healthcare provider right away if any of these occur: Pain gets worse or moves to the right lower abdomen New or worsening vomiting or diarrhea Swelling of the abdomen Unable to pass stool for more than 3 days Fever of 100.4 F (38 C) or higher, or as directed by your healthcare provider. Blood in vomit or bowel movements (dark red or black color) Yellow color of eyes and skin (jaundice) Weakness, dizziness Chest, arm, back, neck, or jaw pain Unexpected vaginal bleeding or missed period Can't keep down liquids or water and you are getting dehydrated [id number] [employer]. [address] [place] [address]. All rights reserved. This information is not intended as a substitute for professional medical care. Always follow yourhealthcare professional's instructions. 04/24/2024 00:35:52 Flank Pain, Uncertain Cause Flank Pain, Uncertain Cause The flank is the area between your upper abdomen and your back. Pain there is often caused by a problem with your kidneys. It might be a kidney infection or a kidney stone. Other causes of flank paininclude spinal arthritis, a pinched nerve from a back injury, or a back muscle strain or spasm. The cause of your flank pain is not certain. You may need other tests. Home care Follow these tips when caring for yourself at home: You may use acetaminophen or ibuprofen to control pain, unless your health care provider prescribedanother medicine. If you have chronic liver or [...] You might find that alternating ice and heatworks well. Use the method that feels the [...] worse Numbness or weakness in a leg [id number] [employer]. [address] [place] [address]. All rights reserved. This information is not intended as a substitute for professional medical care. Always follow yourhealthcare professional's instructions. Follow Up Care 04/23/2024 23:03:55 With:RUDY BRANCH DO Address: [address] [place] [id number] When:2-4 days Comments:Return to ED if symptoms worsen [facility] 01-27-2025 Note Discharge Instructions Thank you for allowing [facility] to assist you with your healthcare needs. The following is importantdischarge information regarding your hospital visit. Diagnosis from Today's Visit Abdominal pain Flank pain What to Do Next Instructions from Your Care Team No qualifying data available. Post Acute Orders No qualifying data available. You Need to Schedule the Following Appointments Follow Up with RUDY BRANCH DO When:Within 2-4 days Where:[address] [place] [address]- Additional Information: Return to ED if symptoms worsen Allergies Keflex Latex doxycycline tetracycline Medications Please ask your primary doctor or pharmacist before taking any other medication not listed, including over the counter drugs, herbal medications, vitamins and or supplements as they may interact withyour home medications. What How Much When Instructions Last Dose Changed hyoscyamine (Levsin 0.125 mg oral tablet) 2 tab(s) by mouth Four (4) times a day Duration: 7 Days Changed hyoscyamine (Levsin SL 0.125 mg sublingual tablet) 2 tab(s) under the tongue Every 6 hours as needed for abdominal discomfort Duration: 3 Days Printed Prescription Changed ondansetron (ondansetron 4 mg oral tablet, disintegrating) Changed ondansetron (ondansetron 4 mg oral tablet, disintegrating) 1 tab(s) by mouth Every 6 hours as needed for Nausea/Vomiting Duration: 3 Days Printed Prescription Unchanged acetaminophen-HYDROcodone (Oceana 325- 5 mg oral tablet) 1 tab(s) by mouth Every 6 hours as needed for as needed for pain Unchanged acyclovir (Zovirax 800 mg oral tablet) 1 tab(s) by mouth 5 times a day Duration: 7 Days Unchanged atenolol (atenolol 25 mg oral tablet) Unchanged azithromycin (azithromycin 250 mg oral tablet) Unchanged baclofen (baclofen 10 mg oral tablet) Unchanged baclofen (baclofen 10 mg oral tablet) 1 tab(s) by mouth Three (3) times a day Duration: 7 Days Unchanged baclofen (baclofen 5 mg oral tablet) 1 tab(s) by mouth Two (2) times a day Duration: 14 Days Unchanged cholecalciferol (Vitamin D3) 2,000 unit(s) by mouth Every day Unchanged codeine-guaifenesin (codeine-guaifenesin 10 mg-100 mg/ 5 mL oral syrup) Unchanged dexamethasone (dexamethasone 6 mg oral tablet) Unchanged lidocaine topical (lidocaine 2% topical gel [...] medication providers or retail pharmacies. Education Materials Unknown Causes of Abdominal Pain (Female) The exact cause of your belly (abdominal) pain is not clear. This does not mean that this is something to worry about. Everyone likes to know the exact cause of the problem. But sometimes with belly pain, there is no clear-cut cause, and this could be a good thing. The good news is that your symptoms can be treated, and you will feel better. Your condition does not seem serious now. But sometimes the signs of a serious problem may take more time to appear. For this reason, it is important for you to watch for any new symptoms, problems, or worsening of your condition. Over the next few days, the abdominal pain may come and go. Or it may be constant. Other common symptoms can include nausea and vomiting. Sometimes it can be difficult to tell if you feel nauseous. You may just feel bad and not connect that feeling to nausea. Constipation, diarrhea, and a fever maygo along with the pain. The pain may continue even if treated correctly over the following days. Depending on how things go, sometimes the cause can become clear and may need more or different treatment. Additional evaluations, medicines, or tests may also be needed. Home care Your healthcare provider may prescribe medicine for pain, symptoms, or an infection. Follow the healthcare provider's instructions for taking these medicines. General care Rest as much as you can until your next exam. No strenuous activities. Try to find positions that ease discomfort. A small pillow placed on the abdomen may help relieve pain. Something warm on your abdomen (such as a heating pad) may help, but be careful not to burn yourself. Diet Don t force yourself to eat, especially if having cramps, vomiting, or diarrhea. Water is important so you don't get dehydrated. Soup may also be good. Sports drinks may also help,especially if they are not too acidic. Don't drink sugary drinks as this can make things worse. Take liquids in small amounts. Don t guzzle them. Caffeine sometimes makes the pain and cramping worse. Don t take dairy products if you have vomiting or diarrhea. Don't eat large amounts at a time. Wait a few minutes between bites. Eat a diet low in fiber (called a low-residue diet). Foods allowed include refined breads, white rice, fruit and vegetable juices without pulp, tender meats. These foods will pass more easily throughthe intestine. Don t have whole-grain foods, whole fruits and vegetables, meats, seeds and nuts, fried or fatty foods, dairy, alcohol and spicy foods until your symptoms go away. Follow-up care Follow up with your healthcare provider, or as advised, if your pain does not begin to improve in the next 24 hours. Call 911 Call 911 if any of these occur: Trouble breathing Confusion Fainting or loss of consciousness Rapid heart rate Seizure When to seek medical advice Call your healthcare provider right away if any of these occur: Pain gets worse or moves to the right lower abdomen New or worsening vomiting or diarrhea Swelling of the abdomen Unable to pass stool for more than 3 days Fever of 100.4 F (38 C) or higher, or as directed by your healthcare provider. Blood in vomit or bowel movements (dark red or black color) Yellow color of eyes and skin (jaundice) Weakness, dizziness Chest, arm, back, neck, or jaw pain Unexpected vaginal bleeding or missed period Can't keep down liquids or water and you are getting dehydrated [id number] [employer]. [address] [place] [id number]. All rights reserved. This information is not intended as a substitute for professional medical care. Always follow yourhealthcare professional's instructions. Flank Pain, Uncertain Cause The flank is the area between your upper abdomen and your back. Pain there is often caused by a problem with your kidneys. It might be a kidney infection or a kidney stone. Other causes of flank paininclude spinal arthritis, a pinched nerve from a back injury, or a back muscle strain or spasm. The cause of your flank pain is not certain. You may need other tests. Home care Follow these tips when caring for yourself at home: You may use acetaminophen or ibuprofen to control pain, unless your health care provider prescribedanother medicine. If you have chronic liver or [...] You might find that alternating ice and heatworks well. Use the method that feels the [...] worse Numbness or weakness in a leg [id number] [employer]. [address] [place] [address]. All rights reserved. This information is not intended as a substitute for professional medical care. Always follow yourhealthcare professional's instructions. Additional Information VACCINATE! IT SAVES LIVES! Members of the community who have not yet received the COVID-19 vaccine and would like to receive it can visit one of [facility] vaccine clinics. There are many vaccine clinic locations within the [facility]. For locations and available times, please visit www.gettheshot.coronavirus.[place].gov/. It is important to note that some COVID mobile vaccine clinics are held outdoors and may be canceled in rainy or stormy conditions. To learn more about pediatric vaccinations (ages 5-11), we invite you to visit the [facility] webpage. https://www.[email or web address].org/pages/3290-Qdkbk-Hlwhlftctxf-Smxthgxkqn-Nieid-Yat stions.htmlTo learn more about the COVID-19 vaccine, we invite you to visit the CDC website for a list of frequently asked questions. https://www.cdc.gov/coronavirus/2019-ncov/vaccines/faq.html [facility] Patient Portal Access Instructions: Stay connected with your healthcare team and access your personal medical information anytime with the [facility] Patient Portal. If you would like a full copy of your medical records please contact the [facility] Medical Records Department Wednesday through Wednesday between 8a.m. and 4:30p.m. Please follow the directions below to access the portal: 1.Access the email account you provided upon registration to the [facility].2.Look for an invitation email from [facility].3.Open the email and access the invitation link: Accept Invitation to [facility]4.Fill in the required carias to create your account. Sign into www.[employer] Platform with your username and password that you [...] you will allow to register on the [facility] Patient Portal for access to your information. You can also access the [facility] Patient Portal on the [employer]. Simply click on "Health Records" under "HealthData" and then click on the Storefront logo. HOW TO SAFELY DISPOSE OF PRESCRIPTION MEDICATIONS Please use one of the following methods to safely dispose of your unused medications. 1.Use a drug disposal kit: the drug disposal pouch allows you to safely discard your old and unuseddrugs. Ask your nurse to give you one when you are discharged.2.Visit a local take-back location: Many local pharmacies and police departments have programs that collect old and unwanted prescriptiondrugs. Call your local pharmacy or go to http://bit.Telepath/0I6Bs3s to find one close to you.3.Make use of household items: Use cat litter or old coffee grounds to dispose medications if other options arenot available. Mix your drugs with these household products, seal them in an airtight container andthrow it into the garbage. Call [facility]: [phone] to be sure your drugs can be [...] drowsiness, such as benzodiazepines, also known as benzos,including diazepam and alprazolam, muscle relaxants or sleep aids. Never sell or share prescriptionopioids. This is illegal. Store opioids in a secure place and out of reach of others (including children, family, friends and visitors). The last page(s) of this document has been signed and retained as a CHART COPY Signatures Patient Education Materials Abdominal Pain, Unknown Cause, (Female) Flank Pain, Uncertain Cause Medication Leaflets My discharge plan and instructions have been reviewed and explained to me and ICLAUDE ASHLEY O understand my current condition and have read and understand these discharge instructions. I have received a written copy of the plan/instructions. If I have questions, I am aware that I should contact my doctor. Patient/Director Of Grants Signature: Date/Time: Relationship to Patient: Witness Name/Signature: Date/Time: [facility]01-27-2025 Note* Exam Date Time Procedure Performing Provider Status 04/24/24 12:[address] Abd/Pelvis w/ IV Contrast Only ZORAIDA BURRELL MD; Auth (Verified) [id number] ORIGINAL EXAMINATION: CT OF THE ABDOMEN AND PELVIS WITH CONTRAST TECHNIQUE: CT of the abdomen and pelvis was performed with the administration of intravenous contrast. Multiplanar reformatted images are provided for review. Automated exposure control, iterative reconstruction, and/or weight based adjustment of the mA/kV was utilized to reduce the radiation dose to as low as reasonably achievable. COMPARISON: CT abdomen/pelvis 11/03/2023 HISTORY: ORDERING SYSTEM PROVIDED HISTORY: Reason for Exam: pain FINDINGS: LOWER THORAX: The imaged lungs are clear. No visible pericardial or pleural effusion. GI TRACT: No dilated segments of bowel. No abnormal mural thickening or hyperenhancement. Normal appendix. SOLID ORGANS: The liver, spleen, pancreas, and adrenal glands are unremarkable. There is symmetric enhancement of the kidneys. No urolithiasis or hydronephrosis. The urinary bladder is unremarkable. The uterus is surgically absent. No adnexal mass. LYMPH/VASCULAR/MESENTERY: No abdominopelvic lymphadenopathy, free fluid, or free air. No acute vascular abnormality. SOFT TISSUES/BONES: No acute soft tissue or bony abnormality. IMPRESSION: No acute finding in the abdomen or pelvis. I have personally reviewed the images of this examination and agree with the resident's findings and interpretation. Interpreted by: Zoraida Burrell MD Preliminary Report By: Mack Martinez Electronically signed By Zoraida Burrell MD Dictated Date: 04/24/2024 12:22:25 AM Prelim Date: 04/24/2024 12:29:12 AM Sign Date: 04/24/2024 12:33:06 AM Ordering Provider: MONI ALCANTARA [facility]01-22-2025 Evaluation note* Diagnosis Onset Date Resolution Status Admit Date Calf pain acute April 19, 2024 8:55am Lower extremity numbness acute April 19, 2024 8:55am Lumbar radiculopathy noneactive Yovani love 2024 12:48pm Cervical radiculopathy noneactive Lucio omarivan 2024 12:48pm Lumbar stenosis with neurogenic claudication noneactive April 27, 2024 12:48pm Crohn's disease acute May 2:18pm Diarrhea acute May 29 2:18pm Dizziness acute May 29 2:18pm Left sided abdominal pain acute May 29, 2024 2:18pm Nausea & vomiting acute May 292024 2:18pm RLQ abdominal pain acute May 29, 2024 2:18pm [facility] Work Phone: 1(727) 212-945201-07-2025 Evaluation note* Diagnosis Onset Date Resolution Status Admit Date Heart palpitations acute 2024 1:05pm POTS (postural orthostatic tachycardia syndrome) chronic March 1:05pm Abdominal pain acute March 9:28am Crohn's disease acute April 052024 9:28am Elevated C-reactive protein (CRP) acute April 05 9:28am Nausea & vomiting acute April 05, 2024 9:28am Calf pain acute April 19, 2024 8:55am Lower extremity numbness acute April 19, 2024 8:55am Lumbar radiculopathy noneactive Yovani love 2024 12:48pm Cervical radiculopathy noneactive Lucio rosa 2024 12:48pm Lumbar stenosis with neurogenic claudication noneactive April 27, 2024 12:48pm Crohn's disease acute May 2:18pm Diarrhea acute May 29 2:18pm Dizziness acute May 29 2:18pm Left sided abdominal pain acute May 29, 2024 2:18pm Nausea & vomiting acute May 292024 2:18pm RLQ abdominal pain acute May 29, 2024 2:18pm [facility] Work Phone: 1(675) 717-245210-21-2024 History of Present illness Narrative* Samina Patton MD - 01/17/2024 1:00 PM EDT Kaya Arce is a 38 y.o. 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 History of Present Illness Patient has a long history of pelvic pain/endometriosis and GI symptoms. Reports most recently having epigastric and lower abdominal pain. Because of this she followed with a GI in [place]. She had aendoscopy/colonoscopy and MRI enterography and was diagnosed with Crohn's Disease with [facility]. She had a CT performed in the ER and MRI performed as well as a part of this work up. She reports intermittent spotting- sees on her toilet paper hard to say if its vaginal or from urine. States she passes a kidney stone every other week. Because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 - Will let me know when she sees [facility] at [facility] and will arrange for ACTH stim test at the same time - Consider getting second opinion for need for hysterectomy/oophorectomy - Patient has not tolerated any form of hormone replacement if she has a surgical oophorectomy and goes into surgical menopause it is unclear what HRT she will be able to tolerate, concern for bone health if right remaining ovary is removed without HRT - Discussed spironolactone but she tried it before and had worsening bleeding Prediabetes Last Assessment & Plan: Assessment: diet controlled Hemoglobin A1C (%) Date Value 06/04/2020 5.5 Sinus tachycardia Last Assessment & Plan: Assessment: controlled on rx, echo 05/2021 EF 65% ALVERTO (obstructive sleep apnea) Last Assessment & Plan: Assessment: non-compliant with CPAP Seasonal allergies Mild persistent asthma Anaphylaxis due to hymenoptera venom Allergic urticaria Allergic conjunctivitis, bilateral Urge incontinence of urine Status post cholecystectomy POTS (postural orthostatic tachycardia syndrome) Last Assessment & Plan: Assessment: hx, hydration and compression stockings Medullary sponge kidney of both kidneys Last Assessment & Plan: Assessment: following nephrology Creatinine Date Value Ref Range Status 02/04/2022 0.61 0.58 - 0.96 mg/dL Final 02/11/2021 0.73 0.58 - 0.96 mg/dL Final 02/11/2021 0.73 0.58 - 0.96 mg/dL Final 07/24/2020 0.82 0.58 - 0.96 mg/dL Final Feeling of incomplete bladder emptying Epigastric pain Bloody diarrhea Acute cystitis with hematuria Trochanteric bursitis of both hips Chronic midline low back pain without sciatica Interstitial cystitis Last Assessment & Plan: Assessment: hx, no tx Rosacea Rash and other nonspecific skin eruption Lichen simplex chronicus Irritant contact dermatitis due to cosmetics Cystic acne Benign neoplasm Post-op pain Essential hypertension Last Assessment & Plan: Assessment: controlled on rx Last 14 BP Last 14 Encounter BP Readings: Date: BP: 02/04/2022 122/74 01/26/2022 117/71 10/10/2021 132/75 10/02/2021 108/66 09/08/2021 123/75 04/16/2021 122/76 03/26/2021 112/78 12/12/2020 117/76 09/24/2020 132/82 12/21/2019 128/73 12/05/2019 125/78 10/26/2019 117/68 06/12/2019 132/80 04/13/2019 121/84 Fibromyalgia Last Assessment & Plan: Assessment: on rx Herniated lumbar intervertebral disc Obesity, Class I, BMI 30-34.9 Endometriosis Last Assessment & Plan: - We reviewed her MRI in depth. We reviewed the role bowel shaving, discoid resection and segmental resection in terms of endometriosis. She does have IBD/Crohns. Discussed that she could undergo endometriosis surgery and would not necessarily need to have a bowel resection. -Discussed that she may still have significant improvement in her symptoms with hysterectomy and resection of endometriosis -She would like to have her right fallopian tube and ovary removed. We discussed that this is an option to consider. Reviewed typically around age 43 with advanced endometriosis we consider removing ovaries, given her surgical history and pain history, she would like to have her right tube and ovary removed. We discussed surgical menopause, chances of ovarian remnant, possible need for HRT in the future and consideration that she may or may not be able to tolerate hormone replacement in the future -Discussed that she could proceed with surgery with office services specialist oncology here, or [facility]. I would be happy to see her but would require colorectal assistance for enterolysis for her procedure. At this point, she has excellent surgical teams, and I do not think that we would be able to schedule her prior to when her other surgeons may be able to schedule her. I did review this with her in depth. Last Assessment & Plan: - We reviewed her MRI in depth. We reviewed the role bowel shaving, discoid resection and segmental resection in terms of endometriosis. She does have IBD/Crohns. Discussed that she could undergo endometriosis surgery and would not necessarily need to have a bowel resection. -Discussed that she may still have significant improvement in her symptoms with hysterectomy and resection of endometriosis -She would like to have her right fallopian tube and ovary removed. We discussed that this is an option to consider. Reviewed typically around age 43 with advanced endometriosis we consider removing ovaries, given her surgical history and pain history, she would like to have her right tube and ovary removed. We discussed surgical menopause, chances of ovarian remnant, possible need for HRT in the future and consideration that she may or may not be able to tolerate hormone replacement in the future -Discussed that she could proceed with surgery with office services specialist oncology here, or [facility]. I would be happy to see her but would require colorectal assistance for enterolysis for her procedure. At this point, she has excellent surgical teams, and I do not think that we would be able to schedule her prior to when her other surgeons may be able to schedule her. I did review this with her in depth. Pelvic pain in female Straining on urination Difficulty voiding Hesitancy Lumbosacral neuritis Anorectal polyp Palpitations Last Assessment & Plan: Assessment: hx, asymptomatic, following [facility], records requested Menstrual irregularity Microhematuria Flank pain Female stress incontinence Intractable migraine without aura Monilial vulvovaginitis Calculus of ureter Seborrheic dermatitis Lyme disease Last Assessment & Plan: Assessment: hx Muscle spasm Headache Pain in joint, lower leg Scars Primary focal hyperhidrosis Contact dermatitis Calculus of kidney Previous delivery, antepartum condition or complication Anxiety state Son with CP, worsening basline anxiety; + FH (mom) Worsens difficulty with stooling, re: hemorrhoids, fissure, bleeding Thrombosed hemorrhoids Hemorrhoidectomy recommended by colorectal surgery, Dr. Daniels -- recurrent bleeding continues, as of 07/05 Impaired fasting glucose Polycystic ovary syndrome Last Assessment & Plan: Assessment: no tx currently Deviated nasal septum Uncomplicated asthma Last Assessment & Plan: Assessment: rx as needed Insulin resistance Gestational diabetes, diet-controlled; Impaired fasting glucose -- improved to <100 as of 2008 Chronic rhinitis Past Medical History She has a past medical history of Anal fissure, Asthma, Bradycardia, CD (Crohn's disease), Endometriosis, lithotripsy, Influenza (2016), Kidney stones, Left ovarian cyst (2014), Other fatigue, Other premature depolarization, PCOS (polycystic ovarian syndrome), POTS (postural orthostatic tachycardiasyndrome), PVC (premature ventricular contraction), Spondylitis, SVT (supraventricular tachycardia), and Syncope. Past Surgical History She has a past surgical history that includes hernia repair (1984); colonoscopy diagnostic (2018); cholecystectomy (2019); hysterectomy (02/10/2022); salpingo- oophorectomy (Left, 07/2014); and section. Family History Family History Problem Relation Age of Onset Hypertension Mother Lipid Disorder Mother Osteoporosis Mother Lipid Disorder Father Hypertension Father Heart Disease - Other Father Diabetes Father Myocardial Infarction Father Heart Surgery Father Lung Cancer Father Heart Disease - Other Maternal Grandmother Breast Cancer Maternal Grandmother Heart Disease - Other Paternal Grandfather Social History Social History Socioeconomic History Marital status: Spouse name: Estella Number of children: 1 Tobacco Use Smoking status: Never Smokeless tobacco: Never Vaping Use Vaping status: Never Used Substance and Sexual Activity Alcohol use: Not Currently Drug use: Never Sexual activity: Yes control/protection: None Comment: "2-3 times a year". status post hysterectomy Past TESTING SHAKING SHIPPING History Reports she had an abnormal pap smear in 2001, SARAH 3, followed by [facility] Health maintenance: Colonoscopy: Diagnostic in 2019 (see HPI) Allergies She is allergic to cephalexin monohydrate [cephalexin], eucalyptus oil, latex, nsaids, tamsulosin, tizanidine, bee venom, ciprofloxacin, diltiazem, doxycycline, and hydroxychloroquine. Medications Current Outpatient Medications Medication Sig Dispense Refill Acetaminophen (TYLENOL 8 HOUR PO) Take by mouth as needed. Adalimumab (HUMIRA PEN SC) Inject under the skin. For Chron's albuterol (PROVENTIL HFA) 108 (90 Base) MCG/ACT Aero Soln inhaler Inhale 2 puffs every 6 hours as needed for Wheezing. Albuterol 108 (90 Base) MCG/ACT Aero Soln inhaler Inhale 1 puff every 6 hours as needed for Shortness of Breath. atenolol 25 MG Tab Take 1 tablet by mouth daily. cetirizine 10 MG Tab tablet Take 1 tablet by mouth daily. Cetirizine 10 MG tablet Take 1 tablet by mouth daily. Clindamycin 1 % Solution Apply 1 Application topically 2 times daily. use thin film on affected area Clindamycin 1 % Solution Apply 1 Application topically 2 times daily. use thin film on affected area diazepam 5 MG Tab tablet Take 2 mg by mouth every 6 hours as needed for Anxiety. Docusate 100 MG capsule Take 1 capsule by mouth as needed for Constipation. Flurandrenolide 0.05 % Lotion Apply topically. Lidocaine 5 % ointment Apply 1 Application topically 3 times daily as needed. LORATADINE ALLERGY RELIEF PO Take by mouth. mometasone 50 MCG/ACT Suspension 2 sprays by Nasal route daily. Multiple Vitamin (MULTIVITAMIN) Cap Take 1 capsule by mouth daily. Ondansetron 4 MG tablet Take 1 tablet by mouth every 8 hours as needed for Nausea / Vomiting. pantoprazole Sodium 40 MG Pack Take 1 packet by mouth every morning before breakfast. potassium chloride 20 MEQ Pack Take 1 packet by mouth 2 times daily. estradiol 0.1 MG/GM cream Insert 1 Application vaginally three times a week. (Patient not taking: Reported on 01/17/2024) fluticasone 50 MCG/ACT Suspension nasal spray 1 spray by Nasal route daily as needed. (Patient not taking: Reported on 01/17/2024) magnesium hydroxide 400 MG/5ML Suspension Take 5 mL by mouth. (Patient not taking: Reported on 01/17/2024) MESALAMINE PO Take 1,000 mg by mouth daily. (Patient not taking: Reported on 01/17/2024) Senna 8.6 MG tablet Take 1 tablet by mouth daily. (Patient not taking: Reported on 01/17/2024) No current facility-administered medications for this visit. BMI Body mass index is 34.08 kg/m . Objective Review of Systems Constitutional: Positive for unexpected weight change (some recent weight gain, difficulty losing weight). Negative for activity change, appetite change, chills, diaphoresis and fatigue. HENT: Negative for congestion, ear discharge and ear pain. Respiratory: Negative for apnea, chest tightness, shortness of breath and wheezing. Cardiovascular: Negative for chest pain, palpitations and leg swelling. Gastrointestinal: Positive for abdominal pain. Negative for abdominal distention, constipation, diarrhea, nausea and vomiting. Genitourinary: Positive for difficulty urinating (frequent kidney stones), dysuria, frequency and hematuria. Negative for vaginal bleeding, vaginal discharge and vaginal pain. Musculoskeletal: Negative for arthralgias and back pain. Hematological: Negative for adenopathy. Does not bruise/bleed easily. Psychiatric/Behavioral: Negative for agitation, behavioral problems and confusion. Psych Review of Symptoms: Depressive Symptoms: No fatigue. Elimination Symptoms: No constipation. Vitals: Blood pressure 111/69, pulse 69, temperature 98.1 F (36.7 C), temperature source Infrared, resp. rate 16, height 1.6 m (5' 3"), weight 87.3 kg (192 lb 6.4 oz), SpO2 96%. Physical Exam Constitutional: Appearance: Normal appearance. HENT: Head: Normocephalic. Mouth/Throat: Mouth: Mucous membranes are moist. Eyes: Conjunctiva/sclera: Conjunctivae normal. Cardiovascular: Rate and Rhythm: Normal rate and regular rhythm. Pulses: Normal pulses. Pulmonary: Effort: Pulmonary effort is normal. No respiratory distress. Breath sounds: Normal breath sounds. No wheezing. Abdominal: General: There is no distension. Palpations: Abdomen is soft. There is no mass. Tenderness: There is no abdominal tenderness. There is no guarding. Hernia: No hernia is present. Genitourinary: Comments: deferred Musculoskeletal: General: No swelling, tenderness or deformity. Cervical back: Normal range of motion. No rigidity. Skin: Coloration: Skin is not jaundiced. Neurological: General: No focal deficit present. Mental Status: She is alert and oriented to person, place, and time. Psychiatric: Mood and Affect: Mood normal. Behavior: Behavior normal. Thought Content: Thought content normal. Judgment: Judgment normal. Neurological Exam Mental Status Alert. Oriented to person, place, and time. Assessment and Plan Kaya Arce is a 38 y.o. 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 Tumor Board note as follows: "Serous phenotype confirmed. Dx: Low grade serous epithelial proliferation. Not meeting diagnostic criteria for low grade serous carcinoma. Elevated risk for possible peritoneal based low grade serous carcinoma was acknowledged. Surveillance recommended." Patient began to follow with Dr. Beltran at with pelvic ultrasounds, most recently pelvic US (10/07/23) right ovary (2.8 x 2.8 x 2.7cm) with a few small follicles. No pathol ogy noted. History, pathology and records reviewed, including imaging reports. Given no new symptoms or concerning imaging findings agree with surveillance at this time from a gynecologic oncology standpoint. Plan for Q6 months US to evaluate right ovary as previously established by [facility] in [place]. UA ordered given UTI- like symptoms although likely related to frequent kidney stones, plans to follow upwith Urology. Patient okay to start Humira for colitis diagnosis. RTC in one year. 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 female. Primary Care Provider: Rudy Branch DO Subjective Treatment History: Dr. Hellen Thomas [facility] Dr. Mia Meehan 37 yo who carries a history of endometriosis and chronic pelvic pain followed by [facility] presents for second opinion on the management of findings of low grade serous epithelial proliferation on 01/2022laparoscopy. 07/2014 LSO for pain, adnexal mass, elevated [...] for metastatic disease. Repeat CA125 was 22. [facility] tumor board review and consultation with Dr. Colin: Serous phenotype confirmed. Dx: Low grade serous epithelial proliferation. Not meeting diagnostic criteria for low grade serous carcinoma. Elevated risk for possible peritoneal based low grade serous carcinoma was acknowledged. Surveillance recommended. Today reports continued pelvic pain. Migratory but usually low. FH: Mother with breast cancer. PMH: endometriosis, POTS, heart murmur, asthma, arthritis, ovarian cancer PSH: 2021 hysterectomy and lesion on bowel abnormal; 2019 cholecystectomy, 2018 endo excision, 2014L oophorectomy and salpingectomy; 2003 section, 189 double hernia repair; FH: father stage V lung cancer NSCLC SH: non smoker Pelvic ultrasound 02/01/23: 1. Status post hysterectomy and left oophorectomy. 2. Normal sonographic appearance of the right ovary. MRI Pelvis 08/06/23: IMPRESSION: 1. Status post total abdominal hysterectomy and left-sided salpingo-oophorectomy with nonspecific asymmetric minimal enhancing soft tissue thickening just superior the left vaginal cuff likely postoperative changes and felt less likely to represent endometriosis implant, however would warrant attention on follow-up. 2. Right adnexal lesion measuring 2 cm with imaging characteristics could represent hemorrhagic/collapsed follicle, however endometriosis could not be entirely excluded. This could be followed up in 6-8 weeks by dedicated pelvic ultrasound. 3. Stable tiny nonspecific right perirectal 0.3 cm lymph node. Unchanged from multiple priors and likely benign Interval history: Patient is a 38 year old female with history of chronic pelvic pain s/p LSO 2014 for endometriosis and s/p total laparoscopic hysterectomy, R ovarian cystectomy, R salpingectomy andperitoneum bowel lesion biopsy, and PEDRO on 02/10/22 for low grade serous epilethial proliferation, not diagnostic for carcinoma. Patient went to hospital recently for kidney stones, she has passed one and states they told her there were four more to pass. Patient's father recently . Patient also recently got , now living together. Patient not had a mammogram, she has order. Patient not been sexually active.Patient still having lower abdominal pain that spreads to her back. Patient following with GI at end of month, waiting to hear about being treated for bowel inflammation. Patient denies any vaginal bleeding. Unable to do pelvic floor therapy due to bladder, rectal spasms. She uses rectal suppositories-Lidocaine and Diazepam. Area on perineum she talked about last visit has resolved she states. She has some constipation. Also has some urinary leakage. Had pelvic ultrasound 10/07/23: Status post hysterectomy and left oophorectomy. Normal right ovary. Physical Exam: Constitutional: Doing well. CHI Eyes: PERRL ENMT: Moist mucus membranes Head/Neck: Supple. Symmetrical Cardiovascular: Regular, rate and rhythm. 2+ equal pulses of the extremities Respiratory/Thorax: CTA. RRR. Chest rise symmetrical. Gastrointestinal: Non-distended, soft, non-tender Genitourinary: Normal external female genitalia. No vulvar lesions noted Speculum exam: Smooth vaginal esqueda without lesions or masses. Vaginal cuff visualized without lesions.White discharge noted in vault. Bimanual exam: Smooth vaginal wall without lesions or masses. Surgically absent uterus, cervix, andadnexa. Rectovaginal exam: smooth rectovaginal septum without lesions [...] the interval history. Assessment/Plan Patient is a 38 year old female with history of chronic pelvic pain s/p LSO 2014 for endometriosis and s/p total laparoscopic hysterectomy, R ovarian cystectomy, R salpingectomy and peritoneum bowel lesion biopsy, and PEDRO on 02/10/22 for low grade serous epilethial proliferation, not diagnostic for carcinoma. CHI 1.5 years. Yeast infection of the vagina. PLAN: Referral to rheumatology for increased inflammatory markers F/U in 6 months or as needed RX for Diflucan 150 mg RX for Estrace sent, intravaginally three nights a week, using dime to nickel size amount on fingerand applying at specified area. Do not use applicator. Mammogram order Total time =30 minutes. 50% or more of this time was spent in counseling and/or coordination of care including reviewing medical history/radiology/labs, examining patient, formulating outlined plan with team, and discussing plan with patient/family. I reviewed patient's chart including but not limited to labs, imaging, surgical/procedure notes, pathology, hospital notes, doctor's notes. documented in this [facility] Work Phone: [phone]) 739-252008-07-2024 Hospital Discharge instructions Patient Education 11/03/2023 15:00:08 Back Sprain/Strain Back Sprain or Strain Injury to the muscles (strain) or ligaments (sprain) around the spine can be troubling. Injury may occur after a sudden forceful twisting or bending force such as in a car accident, after a simple awkward movement, or after lifting something heavy with poor body positioning. In any case, muscle spasm is often present and adds to the pain. Thankfully, most people feel better in 1 to 2 weeks, and most of the rest in 1 to 2 months. Most people can remain active. Unless you had a forceful or traumatic physical injury such as a car accident or fall, X-rays may not be ordered for the first evaluation of a back sprain or strain. If pain continues and does not respond to medical treatment, your healthcare provider may then order X-rays and other tests. Home care The following guidelines will help you care for your injury at home: When in bed, try to find a comfortable position. A firm mattress is best. Try lying flat on your back with pillows under your knees. You can also try lying on your side with your knees bent up towardyour chest and a pillow between your knees. Don't sit for long periods. Try not to take long car rides or take other trips that have you sitting for a long time. This puts more stress on the lower back than standing or walking. During the first 24 to 72 hours after an injury or flare-up, apply an ice pack to the painful area for 20 minutes. Then remove it for 20 minutes. Do this for 60 to 90 minutes, or several times a day.This will reduce swelling and pain. Be sure to wrap the ice pack in a thin towel or plastic to protect your skin. You can start with ice, then switch to heat. Heat from a hot shower, hot bath, or heating pad reduces pain and works well for muscle spasms. Put heat on the painful area for 20 minutes, then remove for 20 minutes. Do this for 60 to 90 minutes, or several times a day. Do not use a heating pad while sleeping. It can burn the skin. You can alternate the ice and heat. Talk with your healthcare provider to find out the best treatment or therapy for your back pain. Therapeutic massage will help relax the back muscles without stretching them. Be aware of safe lifting methods. Do not lift anything over 15 pounds until all of the pain is gone. Medicines Talk to your healthcare provider before using medicines, especially if you have other health problems or are taking other medicines. You may use acetaminophen or ibuprofen to control pain, unless another pain medicine was prescribed. If you have chronic conditions like diabetes, liver or kidney disease, stomach ulcers, or gastrointestinal bleeding, or are taking blood-thinner medicines, talk with your doctor before taking any medicines. Be careful if you are given prescription medicines, narcotics, or medicine for muscle spasm. They can cause drowsiness, and affect your coordination, reflexes, and judgment. Do not drive or operate heavy machinery when taking these types of medicines. Only take pain medicine as prescribed by your healthcare provider. Follow-up care Follow up with your healthcare provider, or as advised. You may need physical therapy or more testsif your symptoms get worse. If you had X-rays your healthcare provider may be checking for any broken bones, breaks, or fractures. Bruises and sprains can sometimes hurt as much as a fracture. These injuries can take time to heal completely. If your symptoms don t improve or they get worse, talk with your healthcare provider.You may need a repeat X-ray or other tests. Call 911 Call 911 if any of the following occur: Trouble breathing Confused Very drowsy or trouble awakening Fainting or loss of consciousness Rapid or very slow heart rate Loss of bowel or bladder control When to seek medical advice Call your healthcare provider right away if any of the following occur: Pain gets worse or spreads to your arms or legs Weakness or numbness in one or both arms or legs Numbness in the groin or genital area [id number] [employer]. [address] [place] [address], [place] [address]. All rights reserved. This information is not intended as a substitute for professional medical care. Always follow yourhealthcare professional's instructions. Follow Up Care 11/03/2023 12:58:38 With:RUDY BRANCH DO Address: [facility] [address] [place], [place] [id number]- When:2-4 days [facility] 08-07-2024 Note Discharge Instructions Thank you for allowing [facility] to assist you with your healthcare needs. The following is importantdischarge information regarding your hospital visit. Diagnosis from Today's Visit Back strain of thoracic region Kidney stones What to Do Next Instructions from Your Care Team No qualifying data available. Post Acute Orders No qualifying data available. You Need to Schedule the Following Appointments Follow Up with RUDY BRANCH DO When:Within 2-4 days Where:[facility] [place] [place] [place] [id number]- Allergies Keflex Latex doxycycline tetracycline Medications Please ask your primary doctor or pharmacist before taking any other medication not listed, including over the counter drugs, herbal medications, vitamins and or supplements as they may interact withyour home medications. What How Much When Why Instructions Last Dose Changed acetaminophen-HYDROcodone (Oceana 325- 5 mg oral tablet) 1 tab(s) by mouth Every 6 hours as needed for as needed for pain Changed acetaminophen-hydrocodone (Oceana 325- 5 mg oral tablet) 1 tab(s) by mouth Every 6 hours as needed for for pain Kidney stones Duration: 3 Days Printed Prescription Changed acetaminophen-hydrocodone (Oceana 325- 5 mg oral tablet) 1 tab(s) by mouth Every 6 hours as needed for for pain Kidney stones Duration: 3 Days Printed Prescription Changed baclofen (baclofen 10 mg oral tablet) Changed baclofen (baclofen 10 mg oral tablet) 1 tab(s) by mouth Three (3) times a day Duration: 7 Days Printed Prescription Changed baclofen (baclofen 5 mg oral tablet) 1 tab(s) by mouth Two (2) times a day Duration: 14 Days Printed Prescription Unchanged acyclovir (Zovirax 800 mg oral tablet) 1 tab(s) by mouth 5 times a day Duration: 7 Days Unchanged atenolol (atenolol 25 mg oral tablet) Unchanged azithromycin (azithromycin 250 mg oral tablet) Unchanged cholecalciferol (Vitamin D3) [...] medication providers or retail pharmacies. Medication Leaflets baclofen (oral) (RUEL kane fen) Gwen Miranda Ozobax DS What is the most important information I should know about baclofen? Use only as directed. Tell your doctor if you use other medicines or have other medical conditions or allergies. What is baclofen? Baclofen is used in adults and children at least 12 years old to treat muscle pain, spasms, and stiffness in people with multiple sclerosis or spinal cord injury or disease. Baclofen should not be used to treat muscle spasms from inflammatory (rheumatic) disorders. Baclofen may also be used for purposes not listed in this medication guide. What should I discuss with my healthcare provider before taking baclofen? You should not use baclofen if you are allergic to it. Tell your doctor if you have or have ever had: mental illness or psychotic disorders such as schizophrenia; seizures or epilepsy; problems with posture and balance; high blood pressure or a history of a condition called autonomic dysreflexia; a stroke, 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, or Parkinson's disease; if you drink alcohol; ovarian cysts; or kidney disease. It is not known if baclofen will harm an unborn baby. If you take baclofen during , your baby could be born with withdrawal symptoms such as tremors or seizure, and may need medical treatment. Tell your doctor if you are or plan to become . Ask a doctor if it is safe to breastfeed while using this medicine. How should I take baclofen? Follow all directions on your prescription label and read all medication guides or instruction sheets. Your doctor may occasionally change your dose. Use the medicine exactly as directed. Your dose needs may change if you switch to a different brand, strength, or form of this medicine. Avoid medication errors by using exactly as directed on the label, or as prescribed by your doctor. Follow your doctor's dosing instructions very carefully. Shake the oral suspension (liquid). Measure liquid medicine with the supplied measuring device (not a kitchen spoon). Shake and pour the entire oral granules packet to dissolve in your mouth or swallow whole at once, with or without liquids. You may also mix the granules with liquids (milk or apple juice) or soft food (apple sauce, yogurt, or pudding). Take the medicine within 2 hours after mixing. The oral granules can also be given through a feeding tube. Read and carefully follow any Instructions for Use provided with your medicine. Ask your doctor or pharmacist if you do not understand these instructions. Call your doctor if your symptoms do not improve, or if they get worse. Do not stop using baclofen suddenly. This can cause dangerous side effects or . Ask your doctor before stopping the medicine. Store at room temperature away from moisture, heat, and light. Throw away any leftover oral suspension 2 months after you first opened the bottle. Some baclofen oral solution brand forms are stored in the refrigerator. Others are stored at room temperature. Ask your pharmacist how to properly store baclofen oral solution. What happens if I miss a dose? Take the medicine as soon as you can, but skip the missed dose if it is almost time for your next dose. Do not take two doses at one time. What happens if I overdose? Seek emergency medical attention or call the Poison Help line at . Overdose symptoms may include increasing drowsiness, dizziness, vomiting, trouble focusing on objects, shallow breathing, seizure, or muscle weakness leading to loss of consciousness. What should I avoid while taking baclofen? Drinking alcohol with this medicine can cause dangerous side effects. Avoid driving or hazardous activity until you know how this medicine will affect you. Dizziness or drowsiness can cause falls, accidents, or severe injuries. What are the possible side effects of baclofen? Get emergency medical help if you have signs of an allergic reaction: hives, difficult breathing, swelling of your face, lips, tongue, or throat. Call your doctor at once if you have: severe drowsiness; trouble standing or sitting up straight, problems with balance; fever, seizures; confusion, hallucinations; muscle stiffness, itching, tingling in hands and feet; or high blood pressure--severe headache, blurred vision, pounding in your neck or ears. Common side effects may include: drowsiness, dizziness, weakness, or tiredness. This is not a complete list of side effects and others may occur. Call your doctor for medical advice about side effects. You may report side effects to FDA at 0-769-NNZ-0762. What other drugs will affect baclofen? Using baclofen with other drugs that make you drowsy can worsen this effect. Ask your doctor beforeusing opioid medication, a sleeping pill, a muscle relaxer, or medicine for anxiety or seizures. Other drugs may affect baclofen, including prescription and mzyu-nvd-jrolspn medicines, vitamins, and herbal products. Tell your doctor about all other medicines you use. Where can I get more information? Your doctor or pharmacist can provide more information about baclofen. Remember, keep this and all other medicines out of the reach of children, never share your medicines with others, and use this medication only for the indication prescribed. Every effort has been made to ensure that the information provided by [employer]') is accurate, up-to-date, and complete, but no guarantee is made to that effect. Drug information contained herein may be time sensitive. [employer] information has been compiled for use by healthcare practitioners and consumers in the [place] and therefore [employer] does not warrant that uses outside of the [place] are appropriate, unless specifically indicated otherwise. [employer] drug information does not endorse drugs, diagnose patients or recommend therapy. [employer] drug information isan informational resource designed to assist licensed healthcare practitioners in caring for their p atients and/or to serve consumers viewing this service as a supplement to, and not a substitute for, the expertise, skill, knowledge and judgment of healthcare practitioners. The absence of a warningfor a given drug or drug combination in no way should be construed to indicate that the drug or drug combination is safe, effective or appropriate for any given patient. [employer] does not assume any responsibility for any aspect of healthcare administered with the aid of information [employer] provides. The information contained herein is not intended to cover all possible uses, directions, precautions, warnings, drug interactions, allergic reactions, or adverse effects. If you have questions about the drugs you are taking, check with your doctor, nurse or pharmacist. Copyright 8522-7182 [employer]. Version: 12.. Revision Date: 09/23/2023. acetaminophen and hydrocodone (a SEET a MIN oh fen and cheryle droe KOE done) Verdrocet What is the most important information [...] where to locate a drug take-back disposal program.If there is no take-back program, flush the unused medicine down the toilet. What happens if I miss a dose? Since this medicine is used for pain, you are not likely to miss a dose. Skip any missed dose if itis almost time for your next dose. Do [...] health department. Make sure any person caring foryou knows where you keep naloxone and how to use it. What should I avoid while taking acetaminophen and hydrocodone? Avoid driving or operating machinery until you know how this medicine will affect you. Dizziness ordrowsiness can cause falls, accidents, or severe injuries. [...] if you have slow breathing with long pauses,blue colored lips, or if you are hard to wake up. In rare cases, acetaminophen may cause a severe skin reaction that can be fatal. This could occur even if you have taken acetaminophen in the past and had no reaction. Stop taking this medicine and call your doctor right away if you have skin redness or a rash that spreads and causes blistering andpeeling. Call your doctor at once if you [...] may report side effects to FDA at 3-256-PLN-1058. What other drugs will affect acetaminophen and [...] affect acetaminophen and hydrocodone, including prescription and truf-anq-ebwrolt medicines, vitamins, and herbal products. Not all [...] to ensure that the information provided by [employer]') is accurate, up-to-date, and complete, but no guarantee is made to that effect. Drug information contained herein may be time sensitive. [employer] information has been compiled for use by healthcare practitioners and consumers in the [place] and therefore [employer] does not warrant that uses outside of the [place] are appropriate, unless specifically indicated otherwise. [employer] drug information does not endorse drugs, diagnose patients or recommend therapy. [employer] drug information isan informational resource designed to assist licensed healthcare practitioners in caring for their p atients and/or to serve consumers viewing this service as a supplement to, and not a substitute for, the expertise, skill, knowledge and judgment of healthcare practitioners. The absence of a warningfor a given drug or drug combination in no way should be construed to indicate that the drug or drug combination is safe, effective or appropriate for any given patient. [employer] does not assume any responsibility for any aspect of healthcare administered with the aid of information [employer] provides. The information contained herein is not intended to cover all possible uses, directions, precautions, warnings, drug interactions, allergic reactions, or adverse effects. If you have questions about the drugs you are taking, check with your doctor, nurse or pharmacist. Copyright 6504-7871 [employer]. Version: 19.02. Revision Date: 07/06/2023. Education Materials Back Sprain or Strain Injury to the muscles (strain) or ligaments (sprain) around the spine can be troubling. Injury may occur after a sudden forceful twisting or bending force such as in a car accident, after a simple awkward movement, or after lifting something heavy with poor body positioning. In any case, muscle spasm is often present and adds to the pain. Thankfully, most people feel better in 1 to 2 weeks, and most of the rest in 1 to 2 months. Most people can remain active. Unless you had a forceful or traumatic physical injury such as a car accident or fall, X-rays may not be ordered for the first evaluation of a back sprain or strain. If pain continues and does not respond to medical treatment, your healthcare provider may then order X-rays and other tests. Home care The following guidelines will help you care for your injury at home: When in bed, try to find a comfortable position. A firm mattress is best. Try lying flat on your back with pillows under your knees. You can also try lying on your side with your knees bent up towardyour chest and a pillow between your knees. Don't sit for long periods. Try not to take long car rides or take other trips that have you sitting for a long time. This puts more stress on the lower back than standing or walking. During the first 24 to 72 hours after an injury or flare-up, apply an ice pack to the painful area for 20 minutes. Then remove it for 20 minutes. Do this for 60 to 90 minutes, or several times a day.This will reduce swelling and pain. Be sure to wrap the ice pack in a thin towel or plastic to protect your skin. You can start with ice, then switch to heat. Heat from a hot shower, hot bath, or heating pad reduces pain and works well for muscle spasms. Put heat on the painful area for 20 minutes, then remove for 20 minutes. Do this for 60 to 90 minutes, or several times a day. Do not use a heating pad while sleeping. It can burn the skin. You can alternate the ice and heat. Talk with your healthcare provider to find out the best treatment or therapy for your back pain. Therapeutic massage will help relax the back muscles without stretching them. Be aware of safe lifting methods. Do not lift anything over 15 pounds until all of the pain is gone. Medicines Talk to your healthcare provider before using medicines, especially if you have other health problems or are taking other medicines. You may use acetaminophen or ibuprofen to control pain, unless another pain medicine was prescribed. If you have chronic conditions like diabetes, liver or kidney disease, stomach ulcers, or gastrointestinal bleeding, or are taking blood-thinner medicines, talk with your doctor before taking any medicines. Be careful if you are given prescription medicines, narcotics, or medicine for muscle spasm. They can cause drowsiness, and affect your coordination, reflexes, and judgment. Do not drive or operate heavy machinery when taking these types of medicines. Only take pain medicine as prescribed by your healthcare provider. Follow-up care Follow up with your healthcare provider, or as advised. You may need physical therapy or more testsif your symptoms get worse. If you had X-rays your healthcare provider may be checking for any broken bones, breaks, or fractures. Bruises and sprains can sometimes hurt as much as a fracture. These injuries can take time to heal completely. If your symptoms don t improve or they get worse, talk with your healthcare provider.You may need a repeat X-ray or other tests. Call 911 Call 911 if any of the following occur: Trouble breathing Confused Very drowsy or trouble awakening Fainting or loss of consciousness Rapid or very slow heart rate Loss of bowel or bladder control When to seek medical advice Call your healthcare provider right away if any of the following occur: Pain gets worse or spreads to your arms or legs Weakness or numbness in one or both arms or legs Numbness in the groin or genital area [id number] [employer]. [address] [place] [id number]. All rights reserved. This information is not intended as a substitute for professional medical care. Always follow yourhealthcare professional's instructions. Additional Information VACCINATE! IT SAVES LIVES! Members of the community who have not yet received the COVID-19 vaccine and would like to receive it can visit one of [facility] vaccine clinics. There are many vaccine clinic locations within the [facility]. For locations and available times, please visit www.gettheshot.coronavirus.[place].gov/. It is important to note that some COVID mobile vaccine clinics are held outdoors and may be canceled in rainy or stormy conditions. To learn more about pediatric vaccinations (ages 5-11), we invite you to visit the [facility] webpage. https://www.[email or web address].org/pages/9099-Gzhzt-Gehrkyeidjx-Brezzayefx-Nyuvy-Mnr stions.htmlTo learn more about the COVID-19 vaccine, we invite you to visit the CDC website for a list of frequently asked questions. https://www.cdc.gov/coronavirus/2019-ncov/vaccines/faq.html [facility] Patient Portal Access Instructions: Stay connected with your healthcare team and access your personal medical information anytime with the [facility] Patient Portal. If you would like a full copy of your medical records please contact the [facility] Medical Records Department Wednesday through Wednesday between 8a.m. and 4:30p.m. Please follow the directions below to access the portal: 1.Access the email account you provided upon registration to the [facility].2.Look for an invitation email from [facility].3.Open the email and access the invitation link: Accept Invitation to [facility].Fill in the required carias to create your account. Sign into www.[employer] Platform with your username and password that you [...] you will allow to register on the [facility] Patient Portal for access to your information. You can also access the [facility] Patient Portal on the byyd nabor. Simply click on "Health Records" under "[employer]" and then click on the Storefront logo. HOW TO SAFELY DISPOSE OF PRESCRIPTION MEDICATIONS Please use one of the following methods to safely dispose of your unused medications. 1.Use a drug disposal kit: the drug disposal pouch allows you to safely discard your old and unuseddrugs. Ask your nurse to give you one when you are discharged.2.Visit a local take-back location: Many local pharmacies and police departments have programs that collect old and unwanted prescriptiondrugs. Call your local pharmacy or go to http://[employer].Telepath/6Y4Uj2f to find one close to you.3.Make use of household items: Use cat litter or old coffee grounds to dispose medications if other options arenot available. Mix your drugs with these household products, seal them in an airtight container andthrow it into the garbage. Call [facility]: [phone] to be sure your drugs can be [...] drowsiness, such as benzodiazepines, also known as benzos,including diazepam and alprazolam, muscle relaxants or sleep aids. Never sell or share prescriptionopioids. This is illegal. Store opioids in a secure place and out of reach of others (including children, family, friends and visitors). The last page(s) of this document has been signed and retained as a CHART COPY Signatures Patient Education Materials Back Sprain/Strain Medication Leaflets baclofen (oral), acetaminophen and hydrocodone My discharge plan and instructions have been reviewed and explained to me and ICLAUDE ASHLEY O understand my current condition and have read and understand these discharge instructions. I have received a written copy of the plan/instructions. If I have questions, I am aware that I should contact my doctor. Patient/Director Of Grants Signature: Date/Time: Relationship to Patient: Witness Name/Signature: Date/Time: [facility]08-07-2024 Note ORIGINAL EXAMINATION: CT OF THE ABDOMEN AND PELVIS WITHOUT CONTRAST 11/03/2023 2:22 pm TECHNIQUE: CT of the abdomen and pelvis was performed without the administration of intravenous contrast. Multiplanar reformatted images are provided for review. Automated exposure control, iterative reconstruction, and/or weight based adjustment of the mA/kV was utilized to reduce the radiation dose to as low as reasonably achievable. COMPARISON: 12/01/2022 HISTORY: ORDERING SYSTEM PROVIDED HISTORY: Reason for Exam: Pt c/o bilateral flank pain today. Reports passing a kidney stone 4 days ago. Nausea. flank and abdominal FINDINGS: Lung bases are unremarkable. No focal hepatic or splenic lesion. The adrenals and pancreas are unremarkable. Prior cholecystectomy. There is bilateral nonobstructive nephrolithiasis which is grossly unchanged from prior. There is no evidence of obstructive uropathy at this time. The bladder is nondistended limiting evaluation. No contributory GI tract abnormality. Normal appendix. Uterus is surgically absent. The right ovary is slightly decreased in size from prior measuring 3.3 cm, previously 3.7 cm. Tiny fat containing umbilical hernia. No lymphadenopathy. 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 No additional contributory abnormality. IMPRESSION: Nonobstructive bilateral nephrolithiasis. No obstructive uropathy. I have personally reviewed the images of this examination and agree with the resident's findings and interpretations. Interpreted by: Harley Mitchell MD Preliminary Report By: Nicole Park Electronically signed By Harley Mitchell MD Dictated Date: 11/03/2023 2:30:40 PM Prelim Date: 11/03/2023 2:40:43 PM Sign Date: 11/03/2023 2:40:43 PM Ordering Provider: [facility]08-02-2024 Note HNO ID: [id number] Author: SNEHA BENTON APRN.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 Service: ? Author Type: Nurse Practitioner Type: Progress Notes Filed: 10/29/2023 12:18 Note Text: EST PATIENT I have communicated my name and active licensure. The patient's identity and physical location were verified at the time of this visit. Either the patient or their legal senior customer service representative has been informed of the risks and benefits of -- and alternatives to -- treatment through a remote evaluation and consents to proceed with the evaluation remotely. Chief Complaint: Acne follow up History of Present Ilness: Kaya Arce is a 38 year old female seen for: #1 acne Location: Face Duration: since adolescents Symptoms: red pimples, itchy Current Treatment: tretinoin , clindamycin gel, Azelaic acid, exfoliates with cloth daily in the shower Past Treatment: Spironolactone, doxycycline 100 mg twice daily, Diflucan powder - she notes increased hair growth on her lower face with causes her acne to worsen - mild improvement with current regimen Past Medical History is reviewed. Medication List is reviewed. Review of systems: Skin as above. Physical Exam - Limited By Technology Camejo skin type: II The patient is a pleasant female in no apparent distress. Alert and oriented x 3. A skin exam performed of the face is significant for: Erythematous excoriated papules throughout face Assessment and Plan: (L70.0) Acne vulgaris (primary encounter diagnosis) Continue tretinoin 0.025% cream nightly as tolerated Start Winlevi to affected areas twice daily R/b/a for the medication(s) including possible side effects discussed and reviewed with patient. Advised to stop use of wash cloth, recommend to cleanse area with gentle soap and water Follow up in 3 months and PRN The documentation for this note was completed by Sneha Benton APRN.CNP acting as scribe for Sneha Benton APRN.CNP. October 29, 2023 11:55 AM. I agree with the Chief Complaint, ROS, and Past Histories independently gathered by the clinical account support rep and the remaining scribed note accurately describes my personal service to the patient. Sneha Benton APRN.CNP October 28[facility] History of Present illness Narrative* Sneha Benton APRN.CNP - 10/29/2023 11:55 AM EDT EST PATIENT I have communicated my name and active licensure. The patient's identity and physical location wereverified at the time of this visit. Either the patient or their legal senior customer service representative has been informed of the risks and benefits of -- and alternatives to -- treatment through a remote evaluation andconsents to proceed with the evaluation remotely. Chief Complaint: Acne follow up History of Present Ilness: Kaya Arce is a 38 year old female seen for: #1 acne Location: Face Duration: since adolescents Symptoms: red pimples, itchy Current Treatment: tretinoin , clindamycin gel, Azelaic acid, exfoliates with cloth daily in the shower Past Treatment: Spironolactone, doxycycline 100 mg twice daily, Diflucan powder - she notes increased hair growth on her lower face with causes her acne to worsen - mild improvement with current regimen Past Medical History is reviewed. Medication List is reviewed. Review of systems: Skin as above. Physical Exam - Limited By Technology Camejo skin type: II The patient is a pleasant female in no apparent distress. Alert and oriented x 3. A skin exam performed of the face is significant for: Erythematous excoriated papules throughout face Assessment and Plan: (L70.0) Acne vulgaris (primary encounter diagnosis) Continue tretinoin 0.025% cream nightly as tolerated Start Winlevi to affected areas twice daily R/b/a for the medication(s) including possible side effects discussed and reviewed with patient. Advised to stop use of wash cloth, recommend to cleanse area with gentle soap and water Follow up in 3 months and PRN The documentation for this note was completed by Sneha Benton APRN.CNP acting as scribe for Sneha Benton APRN.CNP. October 29, 2023 11:55 AM. I agree with the Chief Complaint, ROS, and Past Histories independently gathered by the clinical account support rep and the remaining scribed note accurately describes my personal service to the patient. Sneha Benton APRN.CNP October 29, 2023 [facility] NoteHNO ID: [id number] Author: BRENDA BERG MD Service: ? Author Type: Physician Type: Progress Notes Filed: 09/10/2023 13:20 Note Text: VIRTUAL VISIT PROGRESS NOTE This is a virtual visit using [employer] Zoom Video Visit. It required patient-provider interaction for the medical decision making as documented below. I have communicated my name and active licensure. The patient's identity and physical location were verified at the time of this visit. Either the patient or their legal senior customer service representative has been informed of the risks and benefits of -- and alternatives to -- treatment through a remote evaluation and consents to proceed with the evaluation remotely. Kaya Arce is a 38 year old female seen for joint pain. pityrosporum folliculitis, acne vulgaris, fibromyalgia chronic back pain. MRI (2013) showed subtle erosive changes bilaterally at the iliac side of the SI joints. Rest within normal limits. Suggestive of spondyloarthropathy. She first saw rheum after a fall. Had issues with foot drop. AM stiffness lasting for an hour. By the end of the day pain returns and affects her sleep. Gets numbness. Rest helps. Sometimes gelling. CT (2012) showed prominent subchondral sclerosis involving the iliac bones adjacent to the SI joints. saw different rheumatologists Tore gastroc muscle 2022. took 6 months to heal. Plaquenil - helped but dc due to diarrhea Humira Mesalamine Dx UC at age 1. Treated with enemas and dietary restriction. Sees GI in [place]. Had "positive gastroparesis test" By age 9-10 not as many issues 2006 had colonoscopy that was unremarkable 01/2019 rectal surgery for anal fistula POTS Endometriosis, hysterectomy. found ovarian cancer. Going to . Fibromyalgia Troch bursitis Sees pain management. She has 1 kid who is 19 years old Family history of autoimmune disease: Father with metastatic lung cancer. Smoking status: Tobacco Use: Never Rheumatology REVIEW OF SYSTEMS: Constitutional: Recent Weight Change: No Fatigue: No Fever: No Night sweats: No Heent: Alopecia: No H/o Inflammatory eye disease (iritis/scleritis): uveitis? Hearing loss: No Frequent sinusitis: No Oral ulcers: YES Sicca: No Parotid swelling: No Hoarseness: No Dysphagia: No Heme/lymph: Lymphadenopathy: No Hematological abnormalities (anemia, thrombocytopenia, leukopenia): No Abnormal bleeding: No Skin: Malar or discoid lesions: No Photosensitivity: No Other rashes: YES acne? Rosacea? Eczema? Seen derm Raynaud's phenomenon: No Hives: No Tightness: No Nodules/bumps: No Easy Bruising: No Nail changes: No H/o psoriasis: No Gastroenterology: Having several issues. Chroni cgastritis. Have not lost weight. Eats small amounts. Cramps. Respiratory: Dry cough/SOB: No Cardiovascular: Pain in chest: No Musculoskeletal: Per HPI Joint pain or swelling: No Prolonged morning stiffness: No Back pain or neck pain: No Muscle weakness: No Genitourinary: Vaginal dryness: No Rash/ulcers: No Neurological: Headaches: No Sensitivity or pain of hands and/or feet: No Psychiatry: Anxiety: No Depression: No Poor sleep: No H/o loss: YES 1, 12 weeks H/o thrombosis: No Increased susceptibility to infection: No HISTORY REVIEWED (electronic chart updated): PAST MEDICAL HISTORY Diagnosis Date Abnormal glandular Papanicolaou smear of cervix Abn. Pap smear (cervix) Abnormal maternal glucose tolerance, antepartum 2003 diet controlled Allergic rhinitis, cause unspecified Allergic rhinitis Anal fissure Anal fissure Ankylosis spondylitis Arthritis Asthma Back pain Calculus of kidney 2007 4 stones, followed by Dr. malgieri Cardiac arrhythmia Crohn's disease (HCC) Daytime somnolence [...] G OR LESS 02/10/2022 Right salpingectomy PAST (more content not included)...[facility]06-11-2024 History of Present illness Narrative* Brenda Berg MD - 09/07/2023 9:17 AM EDT VIRTUAL VISIT PROGRESS NOTE This is a virtual visit using [employer] Zoom Video Visit. It required patient- provider interaction for the medical decision making as documented below. I have communicated my name and active licensure. The patient's identity and physical location wereverified at the time of this visit. Either the patient or their legal senior customer service representative has been informed of the risks and benefits of -- and alternatives to -- treatment through a remote evaluation andconsents to proceed with the evaluation remotely. Kaya Arce is a 38 year old female seen for joint pain. pityrosporum folliculitis, acne vulgaris, fibromyalgia chronic back pain. MRI (2013) showed subtle erosive changes bilaterally at the iliac side of the SIjoints. Rest within normal limits. Suggestive of spondyloarthropathy. She first saw rheum after a fall. Had issues with foot drop. AM stiffness lasting for an hour. By the end of the day pain returnsand affects her sleep. Gets numbness. Rest helps. Sometimes gelling. CT (2012) showed prominent subchondral sclerosis involving the iliac bones adjacent to the SI joints. saw different rheumatologists Tore gastroc muscle 2022. took 6 months to heal. Plaquenil - helped but dc due to diarrhea Humira Mesalamine Dx UC at age 1. Treated with enemas and dietary restriction. Sees GI [place]. Had "positive gastroparesis test" By age 9-10 not as many issues 2006 had colonoscopy that was unremarkable 01/2019 rectal surgery for anal fistula POTS Endometriosis, hysterectomy. found ovarian cancer. Going to . Fibromyalgia Troch bursitis Sees pain management. She has 1 kid who is 19 years old Family history of autoimmune disease: Father with metastatic lung cancer. Smoking status: Tobacco Use: Never Rheumatology REVIEW OF SYSTEMS: Constitutional: Recent Weight Change: No Fatigue: No Fever: No Night sweats: No Heent: Alopecia: No H/o Inflammatory eye disease (iritis/scleritis): uveitis? Hearing loss: No Frequent sinusitis: No Oral ulcers: YES Sicca: No Parotid swelling: No Hoarseness: No Dysphagia: No Heme/lymph: Lymphadenopathy: No Hematological abnormalities (anemia, thrombocytopenia, leukopenia): No Abnormal bleeding: No Skin: Malar or discoid lesions: No Photosensitivity: No Other rashes: YES acne? Rosacea? Eczema? Seen derm Raynaud's phenomenon: No Hives: No Tightness: No Nodules/bumps: No Easy Bruising: No Nail changes: No H/o psoriasis: No Gastroenterology: Having several issues. Chroni cgastritis. Have not lost weight. Eats small amounts. Cramps. Respiratory: Dry cough/SOB: No Cardiovascular: Pain in chest: No Musculoskeletal: Per HPI Joint pain or swelling: No Prolonged morning stiffness: No Back pain or neck pain: No Muscle weakness: No Genitourinary: Vaginal dryness: No Rash/ulcers: No Neurological: Headaches: No Sensitivity or pain of hands and/or feet: No Psychiatry: Anxiety: No Depression: No Poor sleep: No H/o loss: YES 1, 12 weeks H/o thrombosis: No Increased susceptibility to infection: No HISTORY REVIEWED (electronic chart updated): PAST MEDICAL HISTORY Diagnosis Date Abnormal glandular [...] 1 yr old bilat inguinal hernia repair PAST SURGICAL HISTORY OF EGD, colonoscopy 06/2023 REMOVAL GALLBLADDER 2019 SIGMOIDOSCOPY FLX DX W/COLLJ SPEC BR/WA IF PFRMD Sigmoidoscopy, flexible FAMILY HISTORY Problem Relation Age of Onset Lipids Mother Osteoporosis Mother Heart disease Mother CAD and stent at age 71. Lipids Father Hypertension Father other (kidney stones) Father other (CHF) Father Lung Cancer Father Stage 4 with mets Breast Cancer Maternal Grandmother age 90 Prostate Cancer Maternal Grandfather Cancer Maternal Grandfather leukemia other (parkinsons) Maternal Grandfather Diabetes Paternal Grandmother Coronary Artery Disease Paternal Grandfather 69 suddenly other (spastic 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) Son other (down syndrome) Paternal Uncle Social History Tobacco Use Smoking status: Never Smokeless tobacco: Never Vaping Use Vaping Use: Never used Substance Use Topics Alcohol use: Not Currently Drug use: Never Current Outpatient Medications Medication Sig tretinoin (RETIN-A) 0.025 % topical cream Apply pea-sized amount to entire face once nightly. Begin3 times weekly and and gradually increase frequency to nightly as tolerated. Azelaic Acid (FINACEA) 15 % gel Gently massage a thin film to face twice daily, in the morning and evening clindamycin (CLEOCIN-T) 1 % gel Apply a thin film 1-2 times daily to affected areas. Use enough to cover the entire affected area lightly gabapentin (NEURONTIN) 100 mg capsule Take 2 capsules by mouth three times a day for 30 days. loratadine (CLARITIN) 10 mg tablet Take 1 tablet by mouth every afternoon. sucralfate (CARAFATE) 100 mg/mL suspension 10 ML ORALLY 4 TIMES PER DAY 1 HOUR BEFORE MEALS AND AT BEDTIME ON AN EMPTY STOMACH nystatin (MYCOSTATIN) powder APPLY TO AFFECTED AREA TWICE DAILY. ibuprofen (MOTRIN) 600 mg tablet Take 1 tablet by mouth every 6 hours. Take with food. acetaminophen (TYLENOL EXTRA STRENGTH) 500 mg tablet Take 2 tablets by mouth every 6 hours. mesalamine (ROWASA) 4 gram/60 mL enema 4 g by RECTAL route daily at bedtime. (Patient not taking: Reported on 07/22/2023) lidocaine (XYLOCAINE) 5 % ointment Apply to affected area as needed. baclofen vaginal suppository 10 mg (CPD) Unwrap and inserty 1 Suppository vaginally once daily as directed. EPINEPHrine (EPIPEN 2-SINCERE) 0.3 mg/0.3 mL auto-injector Inject 0.3 mL intramuscularly as needed (Inject in thigh as needed for anaphylaxis and call 911). GENERIC OKAY cyanocobalamin, vitamin B-12, (VITAMIN B-12 ORAL) Take by mouth. (Patient not taking: Reported on 07/29/2023) flurandrenolide (CORDRAN) 0.05 % lotion Apply to [...] mEq by mouth two times a day.) docusate sodium (COLACE) 100 mg capsule Take [...] Low HR, cold and clammy (subjective only) REVIEW OF SYSTEMS: All other ROS: negative As noted in HPI PHYSICAL EXAMINATION: VIDEO EXAM: (if completed, performed via video enabled technology) GENERAL: alert and appropriate, in no distress, well-hydrated, well nourished, and happy, smiling, interactive Latest Reference Range & Units 07/22/23 09:47 Vitamin D 25 Hydroxy >=30.0 ng/mL 38.1 IAN Negative Positive ! IAN Titer 1:80 IAN Pattern Nuclear homogeneous DNA Antibody <=200 IU/mL 22 DNA Antibody Qualitative Interpretation Negative Negative Anti-MACHINE SETTER SUPERVISOR <1.0 AI 0.2 Anti-SSB <1.0 AI <0.2 Anti-Sm <1.0 AI <0.2 Sm Antibody Negative Negative Anti-SSA <1.0 AI <0.2 Rheumatoid Factor <16 IU/mL <10 CCP Antibody, IgG <20 Units <15 MACHINE SETTER SUPERVISOR Antibody QUAL Negative Negative SSA Antibody Qual Negative Negative CCP Antibody IgG Qualitative Negative Negative SSB Antibody Qual Negative Negative !: Data is abnormal Pertinent imaging: IMPRESSION: Minimal lower lumbar degenerative changes as above. No significant disc herniation, spinal stenosis, or foraminal compromise. Anatomic Lumbar Variant: None. L4-5 is considered the level of the iliac crest and assume there are 5 lumbar-type vertebrae. IMPRESSION: Moderate sized broad-based central/right paracentral disc protrusion at C6-C7 resulting in moderate canal stenosis and mild right ventral cord flattening at this level. C5-C6 mild right foraminal stenosis. No additional significant canal or foraminal stenoses at the remaining cervical levels. Anatomic Variant: None. Assume 7 cervical vertebrae with counting from the craniocervical junction. 2019 x rays L spine - DJD, SI - normal. 2018 - IMPRESSION: 1. No significant interval change in appearance of the bilateral sacroiliac joints since 2013 MRI. There is symmetric bilateral sacroiliac joint sclerosis, but no evidence of edema, enhancement, or effusion to suggest active sacroiliitis. 2. No mass, fluid collection, or other abnormality in the left thigh to correspond with palpable finding. 2010 - IMPRESSION: INCREASED SCLEROSIS PREDOMINANTLY ILIAC SIDE THE SACROILIAC JOINTS MOST CONSISTENT WITH STRESS CHANGES (OSTEITIS CONDENSANS ILII). FINDINGS: UTERUS: Status post total abdominal hysterectomy with asymmetric minimal enhancing soft tissue thickening and enhancement noted just superior to the left vaginal cuff (series 26, image 21/series 32, image 34) OVARIES/ADNEXA: RIGHT: The right ovary is normal in size and appears unremarkable. Few small follicles noted. There is a well-defined lesion measuring 2 cm that appears heterogenous in T2 weighted image (series 7, image 10) and predominantly T1 hyperintense (series 14, image 21) with no postcontrast enhancement. LEFT: Status post left salpingo-oophorectomy. PERITONEAL FLUID: No free or loculated fluid collections are evident in the pelvis. PELVIC LYMPH NODES: Nonspecific tiny right perirectal 0.3 cm lymph node BOWEL: No bowel dilatation BONES: Spiral degenerative changes involving the sacroiliac joints as in prior. ASSESSMENT: No diagnosis found. PLAN: 38-year-old female is here for follow up. Patient was once diagnosed with ankylosing spondylitis given concerning sacroiliitis features on previous imaging however repeat imaging did not show clear signs of sacroiliitis. Recent MRI L-spine did not show signs of inflammatory syndesmophytes. She is also established with pain management. Pain seems to be likely due to osteoarthritis however would like to get repeat MRI SI joints and radiographs to look at this joint more clearly. She also has several other features including GI symptoms and nonspecific rashes. Advised to evaluate by GI (Dr. Junior) and dermatology respectively. SI joints did not show signs of sacroiliitis. Comprehensive evaluation not revealed a systemic rheumatological disease. Patient is concerned about chronic GI symptoms and was suggested by her GI to try Biologics. I will defer to them regarding this. Patient is upset given the lack of findings in the workup. Discussed about nonspecificity of IAN. Also had a long discussion however these rheumatological diseases cause GI issues and which can be seen on pathology and other GI imaging. There are no Patient Instructions on file for this visit. I spent a total of 20 minutes on the date of the service which included preparing to see the patient, [id number] patient care, completing clinical documentation, obtaining and/or reviewing separately obtained history, performing a medically appropriate examination, counseling and educating the pat ient/family/caregiver, independently interpreting results (not separately reported), and communicating results to the patient/family/caregiver Brenda Berg MD No orders found for this visit on 09/07/23. No orders of the defined types were placed in this encounter. documented in this encounterKindred Healthcare06-07-2024 Telephone encounter Note * Telephone Encounter - Mile Rendon - 09/03/2023 2:23 PM EDT Received email from Silvia HERRON denial of MRI pelvis. Needs [id number] done prior to 09/08/23 Call [phone] opt2 Case #[id number] Opt 1 I scanned in denial. Please and thank you. Mile Quach Senior Piping Designer [facility]06-07-2024 Miscellaneous Notes* Telephone Encounter - Mile Rendon - 09/03/2023 2:23 PM EDT Received email from Silvia HERRON denial of MRI pelvis. Needs [id number] done prior to 09/08/23 Call [phone] opt2 Case #[id number] Opt 1 I scanned in denial. Please and thank you. Mile Quach Senior Piping Designer documented in this encounterKindred Healthcare05-21-2024 History of Present illness Narrative* Canelo Pina, DESIGNER-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 - 08/17/2023 3:20 PM EDT Patient ID: Kaya Arce is a 37 y.o. female. Primary Care Provider: Rudy Branch DO Subjective Treatment History: Dr. Hellen Thomas [facility] Dr. Mia Meehan 37 yo who carries a history of endometriosis and chronic pelvic pain [facility] [place] opinion on the management of findings of low grade serous epithelial proliferation on 01/2022laparoscopy. 07/2014 LSO for pain, adnexal mass, elevated [...] for metastatic disease. Repeat CA125 was 22. [facility] tumor board review and consultation with Dr. Colin: Serous phenotype confirmed. Dx: Low grade serous epithelial proliferation. Not meeting diagnostic criteria for low grade serous carcinoma. Elevated risk for possible peritoneal based low grade serous carcinoma was acknowledged. Surveillance recommended. Today reports continued pelvic pain. Migratory but usually low. FH: Mother with breast cancer. PMH: endometriosis, POTS, heart murmur, asthma, arthritis, ovarian cancer PSH: 2021 hysterectomy and lesion on bowel abnormal; 2019 cholecystectomy, 2019 endo excision, 2015L oophorectomy and salpingectomy; 2004 section, 1894 double hernia repair; FH: father stage V lung cancer NSCLC SH: non smoker Pelvic ultrasound 02/01/23: 1. Status post hysterectomy and left oophorectomy. 2. Normal sonographic appearance of the right ovary. MRI Pelvis 08/06/23: IMPRESSION: 1. Status post total abdominal hysterectomy and left-sided salpingo-oophorectomy with nonspecific asymmetric minimal enhancing soft tissue thickening just superior the left vaginal cuff likely postoperative changes and felt less likely to represent endometriosis implant, however would warrant attention on follow-up. 2. Right adnexal lesion measuring 2 cm with imaging characteristics could represent hemorrhagic/collapsed follicle, however endometriosis could not be entirely excluded. This could be followed up in 6-8 weeks by dedicated pelvic ultrasound. 3. Stable tiny nonspecific right perirectal 0.3 cm lymph node. Unchanged from multiple priors and likely benign Interval history: Patient is a 37 year old female with history of chronic pelvic pain s/p LSO 2014 for endometriosis and s/p total laparoscopic hysterectomy, R ovarian cystectomy, R salpingectomy andperitoneum bowel lesion biopsy, and PEDRO on 02/10/22 for low grade serous epilethial proliferation, not diagnostic for carcinoma. Nursing Note: Patient sent [employer] message updating that recent upper and lower endoscopy showed chronic gastritis and inflammation as well as inflammation and thickening of the colon. Patient concerned as previous CT scans did not showed ovarian cyst but was found on MRI. Patient requesting MRI due to continued pain and symptoms. Patient also updated that blood work showed + IAN and she was seen by jewel bearing facer who recommended that Patient update Canelo Pina CNP and clear any new medications with her prior to prescribing. Canelo updated and recommends MRI with phone visit to follow to review results and states patients jewel bearing facer and GI physician may prescribe any medications they feel are necessary. Return [employer] message sent to patient to update regarding Neil recommendations. Messaged Roxanne Malagon requesting she contact patient to schedule MRI of pelvis and phone visit with Canelo to follow. Patient states she is seeing rheumatology in 2 weeks before starting any new medications, GI will also be starting medications to reduce inflammation in colon. Colonoscopy biopsy showed negative for Crohns, colitis. Small intestine is having backup of bile in stomach causing her pain. Patient states she feels something on her left buttock that has spread towards vagina, denies any discharge or bleeding but it has gotten bigger in size, denies any pain. Patient states she has been having an issue with stress leakage. Stil having issues with pelvic pain. Has chronic diarrhea/soft stools. Assessment/Plan Patient is a 37 year old female with history of chronic pelvic pain s/p LSO 2015 for endometriosis and s/p total laparoscopic hysterectomy, R ovarian cystectomy, R salpingectomy and peritoneum bowel lesion biopsy, and PEDRO on 02/10/22 for low grade serous epilethial proliferation, not diagnostic for carcinoma. PLAN: Pelvic ultrasound in 2 months to follow up right adnexal follicle F/U in 3-4 weeks for exam of new perineum lesion Rheumatology and GI managing medications for gastritis and colonic inflammation Pelvic floor therapy referral I performed this visit using real-time telehealth tools, including an audio/video connection between the patient and myself. I spent 20 minutes virtually with this patient and/or family. More than 50% of the time was spent in counseling and/or coordination of care. documented in this encounterUniversity [facility] Work Phone: 1(580) 982-142605-02-2024 Instructions* Patient Instructions* Sneha Benton APRN.CNP - 07/29/2023 9:21 AM EDT Images from the original note were not included. [id number] BENZOYL PEROXIDE WASHES Wash affected areas once daily. Make sure to rinse off well or use a white towel as benzoyl peroxide may bleach clothing and towels. Anti-fungal Powder Directions: -MICONAZOLE (lanie gutiérrez) is an antifungal medicine. It is used to treat certain kinds of fungal or yeast infections of the skin. -COMMON BRAND NAME(S): Desenex, Lotrimin AF Powder, Micotrin AP, Micro-Guard, Mitrazol, Remedy, Zeasorb Athlete's Foot, Zeasorb Jock Itch -This medicine is for external use only. Do not take by mouth. Follow the directions on the label. Wash hands before and after use. Cleanse and dry affected area thoroughly. Apply a thin layer of this medicine to the affected area documented in this encounterKindred Healthcare05-02-2024 History of Present illness Narrative* Sneha Benton APRN.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 - 07/29/2023 8:43 AM EDT EST PATIENT Chief Complaint: Acne History of Present Ilness: Kaya Arce is a 37 year old female who presents today for a Acne #1 acne Location: Face Duration: since adolescents Symptoms: red pimples, itchy Current Treatment: tretinoin , clindamycin gel, Oddity cream (tretinoin 0.028% Azelaic acid 4%, Niacinamide 4%) Past Treatment: Spironolactone, doxycycline 100 mg twice daily, Diflucan powder - she notes increases hair growth on her lower face with causes her acne to worsen # HS Location: under arms, breasts, groin Duration: years Symptoms: recurrent cysts, painful Current Treatment: clindamycin Past Treatment: Doxycyline (could not tolerated d/t GI SE), Spironolactone (caused kidney stones/bladder irritation) Pertinent History: History of skin cancer: No History of atypical nevi: No History of immunosuppression/organ transplant: No , planning , or ? No Pertinent Family medical history: History of melanoma: No History of non melanoma skin cancer: Yes father unsure of type Other family history (autoimmune, dermatologic, etc): None Past Medical History is reviewed. Medication List is reviewed. ROS: Skin as above. Physical Exam: Camejo skin type: II The patient is a pleasant female in no apparent distress. Alert and oriented x 3. A skin exam performed of the face, chest, and back is significant for: Head - Anterior (Face) Excoriated acneiform papules to face Chest - Medial (Center), Left Inframammary Fold, Right Inframammary Fold Few erythematous papules and cysts with hyperpigmented scaring Patient declines exam of groin today Assessment and Plan: Acne excoriee Head - Anterior (Face) Discussed etiology, course, prognosis and treatment options Advised to avoid picking/scratching at lesions Continue topical treatment with tretinoin nightly as tolerated and azelaic acid once to twice daily Winlevi in reserve Related Medications tretinoin (RETIN-A) 0.025 % topical cream Apply pea-sized amount to entire face once nightly. Begin 3 times weekly and and gradually increasefrequency to nightly as tolerated. Azelaic Acid (FINACEA) 15 % gel Gently massage a thin film to face twice daily, in the morning and evening Hidradenitis suppurativa Chest - Medial (Center); Left Inframammary Fold; Right Inframammary Fold Discussed etiology, reassured, and educated. Discussed chronic/relapsing nature of condition Encouraged lifestyle modification and healthy weight loss Recommend to cleanse effected areas with benzoyl peroxide 4% wash followed by clindamycin 1% lotion. May return for ILK if needed for future flares. Avoid picking/scratching at lesions Consider following up with Dr. Ravi to discuss further systemic medications as she has previously failed Doxycyline and spironolactone and Humira is contraindicated due to ovarian cancer diagnosis Follow up as noted in plan or as needed The documentation for this note was completed by Ravi Blank LPN acting as scribe for Sneha Benton APRN.CNP. I agree with the Chief Complaint, ROS, and Past Histories independently gathered by the clinical account support rep and the remaining scribed note accurately describes my personal service to the patient. Sneha Benton APRN.CNP documented in this encounterKindred Healthcare04-30-2024 Telephone encounter Note * Telephone Encounter - Yvonne Bobby LPN - 07/27/2023 3:49 PM EDT Silke, I do not see that the MRI is scheduled. Yvonne Bobby LPN [facility]04-30-2024 Miscellaneous Notes* Telephone Encounter - Yvonne Bobby LPN - 07/27/2023 3:49 PM EDT Silke, I do not see that the MRI is scheduled. Yvonne Bobby LPN documented in this encounterKindred Healthcare04-25-2024 History of Present illness Narrative* SaavedraSharita byrnes RT(R) - 07/22/2023 9:45 AM EDTSummary: XRAY Radiology Service Progress Note PATIENT NAME: Kaya Arce DATE OF SERVICE: July 22, 2023 TIME: 9:42 AM PATIENT IDENTITY VERIFICATION COMPLETED USING TWO (2) IDENTIFIERS: Name and Date of confirmedby patient verbally. FALL SCREENING: Has the patient had 2 falls in the last year or 1 fall with injury or currently using an Ambulatory Assistive Device (Walker, Cane, Wheelchair, Crutches, etc.)? No PATIENT GENDER DATA: Female. status: : No status: NO. PATIENT RELEVANT IMPLANT DATA REVIEWED: Not Applicable PATIENT PRESENTS WITH AN IMPLANTABLE OR ATTACHED BIOMASS POWER PLANT SUPERINTENDENT: No RADIOLOGY DEPARTMENT: General X-ray: Exam(s) Completed: Pelvis X-Ray: sacroiliac joints PERIPHERAL IV DATA: Not applicable SIGNED BY: SHALINI Osorio) July 22, 2023 9:42 AM documented in this encounterKindred Healthcare04-25-2024 NoteHNO ID: [id number] Author: SHARITA SAAVEDRA RT (R) Service: Radiology Author Type: Technologist Type: Progress Notes Filed: 07/22/2023 09:42 Note Text: Summary: XRAY Radiology Service Progress Note PATIENT NAME: Kaya Arce DATE OF SERVICE: July 22, 2023 TIME: 9:42 AM PATIENT IDENTITY VERIFICATION COMPLETED USING TWO (2) IDENTIFIERS: Name and Date of confirmed by patient verbally. FALL SCREENING: Has the patient had 2 falls in the last year or 1 fall with injury or currently using an Ambulatory Assistive Device (Walker, Cane, Wheelchair, Crutches, etc.)? No PATIENT GENDER DATA: Female. status: : No status: NO. PATIENT RELEVANT IMPLANT DATA REVIEWED: Not Applicable PATIENT PRESENTS WITH AN IMPLANTABLE OR ATTACHED BIOMASS POWER PLANT SUPERINTENDENT: No RADIOLOGY DEPARTMENT: General X-ray: Exam(s) Completed: Pelvis X-Ray: sacroiliac joints PERIPHERAL IV DATA: Not applicable SIGNED BY: RT Devon(R) July 22, 2023 9:42 [facility]04-25-2024 NoteHNO ID: [id number] Author: BRENDA BERG MD Service: ? Author Type: Physician Type: Progress Notes Filed: 07/23/2023 11:24 Note Text: RHEUMATOLOGY NEW PATIENT NOTE REFERRING PHYSICIAN: Zainab Duckworth CHIEF COMPLAINT: Patient presents with: Joint Pain Nurse Visit HPI: Kaya Arce is a 37 year old female who presents with joint pain pityrosporum folliculitis, acne vulgaris, fibromyalgia chronic back pain. MRI (2013) showed subtle erosive changes bilaterally at the iliac side of the SI joints. Rest within normal limits. Suggestive of spondyloarthropathy. She first saw rheum after a fall. Had issues with foot drop. AM stiffness lasting for an hour. By the end of the day pain returns and affects her sleep. Gets numbness. Rest helps. Sometimes gelling. CT (2012) showed prominent subchondral sclerosis involving the iliac bones adjacent to the SI joints. saw different rheumatologists Tore gastroc muscle 2022. took 6 months to heal. Plaquenil - helped but dc due to diarrhea Humira Mesalamine Dx UC at age 1. Treated with enemas and dietary restriction. Sees GI in [place]. Had "positive gastroparesis test" By age 9-10 not as many issues 2006 had colonoscopy that was unremarkable 01/2019 rectal surgery for anal fistula POTS Endometriosis, hysterectomy. found ovarian cancer. Going to . Fibromyalgia Troch bursitis Sees pain management. She has 1 kid who is 19 years old Family history of autoimmune disease: Father with metastatic lung cancer. Smoking status: Tobacco Use: Never Rheumatology REVIEW OF SYSTEMS: Constitutional: Recent Weight Change: No Fatigue: No Fever: No Night sweats: No Heent: Alopecia: No H/o Inflammatory eye disease (iritis/scleritis): uveitis? Hearing loss: No Frequent sinusitis: No Oral ulcers: YES Sicca: No Parotid swelling: No Hoarseness: No Dysphagia: No Heme/lymph: Lymphadenopathy: No Hematological abnormalities (anemia, thrombocytopenia, leukopenia): No Abnormal bleeding: No Skin: Malar or discoid lesions: No Photosensitivity: No Other rashes: YES acne? Rosacea? Eczema? Seen derm Raynaud's phenomenon: No Hives: No Tightness: No Nodules/bumps: No Easy Bruising: No Nail changes: No H/o psoriasis: No Gastroenterology: Having several issues. Chroni cgastritis. Have not lost weight. Eats small amounts. Cramps. Respiratory: Dry cough/SOB: No Cardiovascular: Pain in chest: No Musculoskeletal: Per HPI Joint pain or swelling: No Prolonged morning stiffness: No Back pain or neck pain: No Muscle weakness: No Genitourinary: Vaginal dryness: No Rash/ulcers: No Neurological: Headaches: No Sensitivity or pain of hands and/or feet: No Psychiatry: Anxiety: No Depression: No Poor sleep: No H/o loss: YES 1, 12 weeks H/o thrombosis: No Increased susceptibility to infection: No PAST MEDICAL HISTORY Diagnosis Date Abnormal glandular Papanicolaou smear of cervix Abn. Pap smear (cervix) Abnormal maternal glucose tolerance, antepartum 2003 diet controlled Allergic rhinitis, cause unspecified Allergic rhinitis Anal fissure Anal fissure Ankylosis spondylitis Arthritis Asthma Back pain Calculus of kidney 2008 4 stones, followed by Dr. long Cardiac [...] 1 yr old bilat inguinal hernia repair PAST SURGICAL HISTORY OF EGD, colonoscopy 06/2023 REMOVAL GALLBLADDER 2019 SIGMOIDOSCOPY FLX DX W/COLLJ SPEC BR/WA IF PFRMD Sigmoidoscopy, flexible Current Outpatient Medications Medication Sig loratadine (CLARITIN) 10 mg tablet Take 1 tablet by mouth every afternoon. sucralfate (CARAFATE) 100 mg/mL suspension 10 ML ORALL (more content not included)...[facility]04-25-2024 History of Present illness Narrative* Brenda Berg MD - 07/22/2023 8:44 AM EDT RHEUMATOLOGY NEW PATIENT NOTE REFERRING PHYSICIAN: Zainab Duckworth CHIEF COMPLAINT: Patient presents with: Joint Pain Nurse Visit HPI: Kaya Arce is a 37 year old female who presents with joint pain pityrosporum folliculitis, acne vulgaris, fibromyalgia chronic back pain. MRI (2013) showed subtle erosive changes bilaterally at the iliac side of the SIjoints. Rest within normal limits. Suggestive of spondyloarthropathy. She first saw rheum after a fall. Had issues with foot drop. AM stiffness lasting for an hour. By the end of the day pain returnsand affects her sleep. Gets numbness. Rest helps. Sometimes gelling. CT (2012) showed prominent subchondral sclerosis involving the iliac bones adjacent to the SI joints. saw different rheumatologists Tore gastroc muscle 2022. took 6 months to heal. Plaquenil - helped but dc due to diarrhea Humira Mesalamine Dx UC at age 1. Treated with enemas and dietary restriction. Sees GI in [place]. Had "positive gastroparesis test" By age 9-10 not as many issues 2006 had colonoscopy that was unremarkable 01/2019 rectal surgery for anal fistula POTS Endometriosis, hysterectomy. found ovarian cancer. Going to . Fibromyalgia Troch bursitis Sees pain management. She has 1 kid who is 19 years old Family history of autoimmune disease: Father with metastatic lung cancer. Smoking status: Tobacco Use: Never Rheumatology REVIEW OF SYSTEMS: Constitutional: Recent Weight Change: No Fatigue: No Fever: No Night sweats: No Heent: Alopecia: No H/o Inflammatory eye disease (iritis/scleritis): uveitis? Hearing loss: No Frequent sinusitis: No Oral ulcers: YES Sicca: No Parotid swelling: No Hoarseness: No Dysphagia: No Heme/lymph: Lymphadenopathy: No Hematological abnormalities (anemia, thrombocytopenia, leukopenia): No Abnormal bleeding: No Skin: Malar or discoid lesions: No Photosensitivity: No Other rashes: YES acne? Rosacea? Eczema? Seen derm Raynaud's phenomenon: No Hives: No Tightness: No Nodules/bumps: No Easy Bruising: No Nail changes: No H/o psoriasis: No Gastroenterology: Having several issues. Chroni cgastritis. Have not lost weight. Eats small amounts. Cramps. Respiratory: Dry cough/SOB: No Cardiovascular: Pain in chest: No Musculoskeletal: Per HPI Joint pain or swelling: No Prolonged morning stiffness: No Back pain or neck pain: No Muscle weakness: No Genitourinary: Vaginal dryness: No Rash/ulcers: No Neurological: Headaches: No Sensitivity or pain of hands and/or feet: No Psychiatry: Anxiety: No Depression: No Poor sleep: No H/o loss: YES 1, 12 weeks H/o thrombosis: No Increased susceptibility to infection: No PAST MEDICAL HISTORY Diagnosis Date Abnormal glandular Papanicolaou smear of cervix Abn. Pap smear (cervix) Abnormal maternal glucose tolerance, antepartum 2003 diet controlled Allergic rhinitis, cause unspecified Allergic rhinitis Anal fissure Anal fissure Ankylosis spondylitis Arthritis Asthma Back pain Calculus of kidney 2008 4 stones, followed by Dr. long Cardiac [...] L4-L5 conjoined nerves affecting R leg-sees neuro [employer] [facility] Renal disease Syncope Unspecified asthma(493.90) [...] 1 yr old bilat inguinal hernia repair PAST SURGICAL HISTORY OF EGD, colonoscopy 06/2023 REMOVAL GALLBLADDER 2019 SIGMOIDOSCOPY FLX DX W/COLLJ SPEC BR/WA IF PFRMD Sigmoidoscopy, flexible Current Outpatient Medications Medication Sig loratadine (CLARITIN) 10 mg tablet Take 1 tablet by mouth every afternoon. sucralfate (CARAFATE) 100 mg/mL suspension 10 ML ORALLY 4 TIMES PER DAY 1 HOUR BEFORE MEALS AND AT BEDTIME ON AN EMPTY STOMACH nystatin (MYCOSTATIN) powder APPLY TO AFFECTED AREA [...] 2 tablets by mouth every 6 hours. lidocaine (XYLOCAINE) 5 % ointment Apply to affected area as needed. baclofen vaginal suppository 10 mg (CPD) Unwrap and inserty 1 Suppository vaginally once daily as directed. EPINEPHrine (EPIPEN 2-SINCERE) 0.3 mg/0.3 mL auto-injector Inject 0.3 mL intramuscularly as needed (Inject in thigh as needed for anaphylaxis and call 911). GENERIC OKAY flurandrenolide (CORDRAN) 0.05 % lotion Apply to [...] mEq by mouth two times a day.) docusate sodium (COLACE) 100 mg capsule Take 100 mg by mouth twice daily as needed. cetirizine 10 mg tablet Take 1 tablet by mouth once daily. MULTI-VITAMIN ORAL Take by mouth once daily. 2 tablets daily gabapentin (NEURONTIN) 100 mg capsule Take 2 capsules by mouth three times a day for 30 days. mesalamine (ROWASA) 4 gram/60 mL enema 4 g by RECTAL route daily at bedtime. (Patient not taking: Reported on 07/22/2023) cyanocobalamin, vitamin B-12, (VITAMIN B-12 ORAL) Take by mouth. (Patient not taking: Reported on 07/22/2023) No current facility-administered medications for this visit. [...] FAMILY HISTORY Problem Relation Age of Onset Lipids Mother Osteoporosis Mother Heart disease Mother CAD and stent at age 71. Lipids Father Hypertension Father other (kidney stones) Father other (CHF) Father Lung Cancer Father Stage 4 with mets Breast Cancer Maternal Grandmother age 90 Prostate Cancer Maternal Grandfather Cancer Maternal Grandfather leukemia other (parkinsons) Maternal Grandfather Diabetes Paternal Grandmother Coronary Artery Disease Paternal Grandfather 69 suddenly other (spastic 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) Son other (down syndrome) Paternal Uncle Social History Tobacco Use Smoking status: Never Smokeless tobacco: Never Vaping Use Vaping Use: Never used Substance Use Topics Alcohol use: Not Currently Drug use: Never 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 BP 114/65 Pulse 80 Temp 36.6 C (97.9 F) (Temporal) Resp 14 Ht 160 cm (5' 3") Wt 86.2 kg (190 lb) LMP 02/10/2022 BMI 33.66 kg/m Physical Exam GENERAL: Well appearing, alert, comfortable, in no acute distress, well- hydrated, well nourished. HEENT: Negative for external ears normal. Canals are clear. Both TMs visualized and are normal. EyeExam normal. External nose normal, no nasal ulcer or throat ulcer. NECK: NECK Supple, no adenopathy; thyroid symmetric, normal size, no bruits CARDIAC: regular rate and rhythm, No murmur asculated., and Equal peripheral pulses RESPIRATORY: Lungs clear to auscultation. No wheezing, rhonchi, rales VASCULAR: RRR without murmur, gallop, or rubs. No ectopy. ABDOMEN: Soft, non tender. BS active. No masses or organomegaly. LYMPHATIC: Negative for adenopathy in the neck, axillae, groin, supraclavicular and auricular. NEURO: Motor and sensory exam normal MOTOR: Normal; including tone, gait, stressed gait, power and coordination. SKIN: Negative for alopecia, skin rash, malar rash, skin lesion, skin ulcer, pits, thickening, color changes, telangiectasias, nail changes, nail ridging, nail pitting, onycholysis MUSCULOSKELETAL: DIPS: Normal PIPS: Normal MCPs: Normal Wrists: Normal Elbows: Normal Shoulders: Normal C-Spine: Normal Hips: Normal Knees: Normal Ankles: Normal MTPs / Toes: Normal Arches: Normal Summary of old labs/radiology: Review/request of outside labs and imaging: Pertinent labs: Glucose 99 01/02/2023 ALT 18 01/02/2023 WBC 7.97 02/04/2022 Hemoglobin 12.8 02/04/2022 Platelet Count 311 02/04/2022 WSR 12 01/01/2020 CRP <0.3 07/24/2020 Serology: Pertinent imaging: IMPRESSION: Minimal lower lumbar degenerative changes as above. No significant disc herniation, spinal stenosis, or foraminal compromise. Anatomic Lumbar Variant: None. L4-5 is considered the level of the iliac crest and assume there are 5 lumbar-type vertebrae. IMPRESSION: Moderate sized broad-based central/right paracentral disc protrusion at C6-C7 resulting in moderate canal stenosis and mild right ventral cord flattening at this level. C5-C6 mild right foraminal stenosis. No additional significant canal or foraminal stenoses at the remaining cervical levels. Anatomic Variant: None. Assume 7 cervical vertebrae with counting from the craniocervical junction. 2019 x rays L spine - DJD, SI - normal. 2018 - IMPRESSION: 1. No significant interval change in appearance of the bilateral sacroiliac joints since 2013 MRI. There is symmetric bilateral sacroiliac joint sclerosis, but no evidence of edema, enhancement, or effusion to suggest active sacroiliitis. 2. No mass, fluid collection, or other abnormality in the left thigh to correspond with palpable finding. 2009 - IMPRESSION: INCREASED SCLEROSIS PREDOMINANTLY ILIAC SIDE THE SACROILIAC JOINTS MOST CONSISTENT WITH STRESS CHANGES (OSTEITIS CONDENSANS ILII). Assessment and Plan (M25.50) Pain in joint, multiple sites (primary encounter diagnosis) (K52.9) Inflammatory bowel disease (E55.9) Vitamin D deficiency 37-year-old female is here for evaluation management condition. Patient was once diagnosed with ankylosing spondylitis given concerning sacroiliitis features on previous imaging however repeat imaging did not show clear signs of sacroiliitis. Recent MRI L-spine did not show signs of inflammatory syn desmophytes. She is also established with pain management. Pain seems to be likely due to osteoarthritis however would like to get repeat MRI SI joints and radiographs to look at this joint more clearly. She also has several other features including GI symptoms and nonspecific rashes. Advised to evaluate by GI and dermatology respectively. Can consider biologics. 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 No follow-ups on file. Brenda Berg MD documented in this encounterKindred Healthcare04-18-2024 History and physical note Author Logan Junior [facility] July 15, 2023 9:12am Note Date/Time July 15, 2023 9:1 2am [facility] Medical Records Department [address] [place] [id number] History & Physical Exam 07/15/23 0911 MR#: [id number] Acct: [id number] Name: KAYA ARCE Rep #:[id number] : 1985 37 From: Logan Junior DO PCP: Dr. Rudy Barnch, DO Status:[facility] Location: [place] [address] History and Physical Date of Admission: 07/15/23 Diarrhea, hematochezia Details: KAYA ARCE, is a 37 F who presents to the office today for diarrhea and hematochezia Prior workup: ?EGD/colonoscopy 08.09.20?EGD gastritis; single gastric fundic gland polyp; bilious fluid in stomach ? Colonoscopy internal/external hemorrhoids. No path changes ?GET 6.4.21?52.96 minutes (12-56) *BGI established 03.20.21 with long-standing constipation alternating with diarrhea, abdominal anal fissure history; diagnosed with possible IBD at age 1. s/p cholecystectomy 10.27.19.?Start budesonide 6mg OV 04.18.21 has been taking budesonide 3mg; continues to have frequent loose stool.?Start Zofran and xifaxan (not covered by insurance) OV 05.16.21 dexamethasone started for COVID infection, GI symptoms improved with this more than budesonide. Notes increased abdominal pain with formed stools. ?CT abd/pel 06.20.21?renal calculi, small fatty umbilical hernia OV 10.22.21 question IBD versus IBS. Significant endometriosis which is affectingcolon, expecting to undergo surgery ?Biochemical 10.22.21?CBC, ESR, CMP, LDH, GAME, ANIA, IAN comp, ANCA, celiac, IBD without pertinent abnormality ? CRP H11.1 ?Stool?calprotectin, lactoferrin, C.Difficile, EP, O/P, giardia WNL ?Urine 05.25.21 ?MRI pel 07.29.21?endometriosis with fibrosis/infiltrative endometriosis; sigmoid and cecum tethering to right sidewall/right ovarian lesion and fibrous tethering to rectum. OV 11.20.21 Awaiting colorectal surgery [facility] to commit to endometriosis date.?Mesalamine supp?somewhat helpful ?CT abd/pel (ED) 04.25.22?hepatomegaly; renal calculi; right ovarian cyst versus follicle ?US 3.3.23 (PCP)?hepatomegaly 18.3cm with fatty infiltration ?KUB 7.6.23?renal calculi ?GET 8.2.23 (PCP)?46.42 minutes (12-56) OV 03..24 Epigastric abdominal pain after eating solid foods, early satiety. After eating a meal will flush, feel heart racing, nausea and abdominal and flank pain. Couple weeks ago, blood seen in emesis and loose stools. Pantoprazole increased to 40 mg BID by PCP, ineffective and since discontinued taking pantoprazole. On 05/03/23 stool calprotectin, high at 137 ordered by PCP. ROS Const Constitutional: Positive for fatigue, fever(s), frequent falls and weakness; No headache(s) or weight change ENT ENT: No headache(s) or difficulty swallowing Cardio Cardiology: Positive for leg pain with exertion Gastro GI: Positive for abdominal pain, bloating, change in bowel habits, constipation,diarrhea, heartburn, excessive flatus, Vomiting blood/hematemesis and nausea/dyspepsia; No difficulty swallowing, Blood in stool or vomiting Musc Musculoskeletal: Positive for joint pain, back pain, joint swelling, muscle cramps, muscle weakness, numbness, stiffness, tingling, restless legs, leg pain at night and leg pain with exertion; No Arthritis or sciatica Skin Skin: Positive for dry skin, itchy eyes and rash; No lesions Neuro Neurology: Positive for weakness, frequent falls, numbness, tingling and restless legs; No behavioral changes, unsteady gait/balance, headache(s), tremor(s), Increased tone in limbs, paralysis or seizures Psych Psychiatric: No anxiety, No behavioral changes, No depression, No paranoia, No Compulsive Behavior, No hyperactivity, No inattentiveness, No obsessions/compulsions, No Temper Tantrums and No suicidal ideation Endo Endocrine: Positive for fatigue; No weight change Aller/Imm Allergy/Immunologic: Positive for itchy eyes Marcus/Lymp Hematologic/Lymphatic: No easy bleeding or easy bruising Exam Const General: cooperative and healthy appearing Orientation: alert, awake and oriented x3 HENMT Head: normal to inspection Chest Chest palpation & inspection: normal inspection of the chest Resp Effort & Inspection: normal respiratory effort and able to speak in complete sentences Cardio Rate: regular rate Pulses: radial pulses present GI Inspection: normal to inspection Musc Thoracic/Lumbar Spine: thoracic and lumbar spine normal to inspection, paraspinal tenderness on the left in the mid lumbar and in the lower lumbar (With palpation exacerbating left lateral thigh paresthesias) and lumbar spinal tenderness Skin General: no rashes or lesions noted Neuro General: patient alert, patient awake and patient oriented x3 Cognition: normal cognition Speech: speech normal Extrem General: full ROM, capillary refill normal and normal exam except as noted (Tiago wrap to the left gastrocnemius) Psych Appearance: grossly normal Mental Status: mental status grossly normal Mood: congruent mood Affect: normal affect Speech and Movement: speech and movement normal Attitude: cooperative Quality Reporting Tobacco Screening ([facility] 138) Smoking Status: Never smoker Assessment and Plan Assessment and Plan (1) Epigastric abdominal pain: Status: Acute (2) GI bleeding: Status: Acute (3) Diarrhea: Status: Acute Plan: 37-year-old with 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 Over the lastmonth or so she has been having worsening nausea, abdominal pain, cramping and diarrhea. Her multiple episodes of nausea called vomiting which resulted in an upper GI bleed. She also did see some blood in her stool and was having symptoms of tenesmus and diarrhea for more than 5-6 times a day. She has no rashes, eye findings, recent infection. She does have a history of elevated CRPs from unknown etiology along with having recent worsening diarrhea. Her fecal calprotectin was elevated 139. Her stool elastase is pending. I do not see a stool culture or C. difficile toxin assay that was drawn. She is little bit better at this time. She was also diagnosed with ovarian cancer implant to the colon that resulted in a small resection without the need for surgery involving a sigmoid colectomy or diversion. She has not lost any weight which is a good sign. She denies any myalgias. She does have some fatigue. Recommendations: -Upper and lower endoscopy to evaluate upper and lower GI tract for inflammatorybowel disease exacerbation in particular Crohn's disease. Also recommend directendoscopic evaluation the patient's hematemesis and hematochezia. I have examined the patient and the H&P has been reviewed. There are no clinicalchanges since date of exam. 07/15/23911 <Electronically signed by Logan Junior DO> Cosigner Signature (if applicable): CC: Dr. Rudy Branch DO; Logan Junior DO~ Signed [facility] Work Phone: [phone] Procedure [facility] 07-15-2023 Procedure [facility]04-18-2024 [facility] 07-12-2023 Miscellaneous Notes* Telephone Encounter - Cammy Boyce RD - 07/12/2023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 back in a couple of months to assess her progress. All questions were answered. Plan: Pain management referral Encouraged her to try physical therapy for her cervical spine - already has referral for this Follow up in 2-3 months Possible C6-C7 ACDF candidate in the future if conservative management fails Time Spent: 11-20 minutes Attribution: The following portions of the patient's history were reviewed, confirmed, and updated as necessary:allergies, current medications, past family history, past medical history, past social history, past surgical history, problem list, HPI, and ROS obtained by others. Some elements may be copied from a previous office note and have been reviewed/updated where appropriate. All portions reflect current medical decision making from today. The clinical and radiographic findings as well as the risks, benefits and alternatives of treatmenthave been reviewed in detail with the patient. Advised to call the office if symptoms worsen or new symptoms develop. Patient expressed understanding and is in agreement with plan. Serjio Thompson MD [facility] This note was partially generated using [employer] voice recognition system, and there may be some incorrect words, spellings, and punctuation that were not noted in checking the note before saving. documented in this encounterKind[facility]03-07-2024 NoteHNO ID: [id number] Author: SERJIO THOMPSON MD Service: ? Author Type: Physician Type: Progress Notes Filed: 06/03/2023 12:11 Note Text: NEUROSURGERY TELEPHONE VISIT PROGRESS NOTE Serjio Thompson MD This is a telephone encounter initiated for an established patient, parent or guardian not originating from a related Evaluation AND Management service provided within the previous 7 days nor leading to an Evaluation AND Management service or procedure within the next 24 hours or soonest available appointment. Date of visit: June 03, 2023 Time of Service: 0900 Patient Name: Ms.Ashley Alexandro Arce Date of : 1985 Current Age: [age] year old Sex: female MRN/E# [id number] Last Office Visit: 04/22/2023 Kaya Arce has consented to this telephone encounter. Persons Present: patient Chief Complaint/Reason: Left leg pain, neck pain, arm and hand numbness HPI: Ms. Arce is a 37-year-old woman with a history of fibromyalgia, Crohn's disease, ankylosing spondylitis, lupus, POTS, PCOS. She denies smoking. The patient was initially seen in office [...] follow up if no symptom relief. She presented to the office on 02/25/2023 with [...] to tachycardia according to reports. She was last seen in the office on 04/22/2023 with improvement in the left leg symptoms, but continues with sharp, pressure described pain with intermittent numbness and tingling to the posterior neck. It was believed that this disc herniation was responsible for her upper extremity symptoms, but not thought to be causing her lower extremity symptoms. She was advised to see pain management to consider injections. It was believed that she was a good candidate for a C6-C7 ACDF if she would choose to proceed with surgery. She was interested in attempting physical therapy to include cervical traction. She was advised to follow up in 6 weeks to discuss her progress, prompting her visit today. She states that her left leg pain is about the same today as it was 6 weeks ago. She has been having several other issues that have sidetracked her, and she has not been able to start physical therapy yet. She recently passed a kidney stone and is undergoing an EGD and colonoscopy for GI issues in a couple of weeks. Her neck pain, stiffness, and bilateral arm and hand numbness is about the same as last time I saw her. Her left leg pain is the most bothersome symptom. It is worse when she is sitting for long periods of time. Symptoms: as noted above PREVIOUS CONSERVATIVE TREATMENTS: PT - 01/20/2023, 01/26/2023(intolerance due to tachycardia) 02/01/2023, 02/15/2023 Pain management - appointment scheduled for 03/19/2023 - canceled (no reschedule) Tylenol PREVIOUS SURGERY: None PAST MEDICAL HISTORY Diagnosis Date Abnormal glandular [...] HTN (hypertension) Hypokalemia Interstitial cystitis Irregular menses (more content not included)...[facility]03-06-2024 History of Present illness Narrative* Gretta Rojas, RT(R) - 06/02/2023 1:00 PM EST Radiology Service Progress Note PATIENT NAME: Kaya Arce DATE OF SERVICE: June 02, 2023 TIME: 1:12 PM PATIENT IDENTITY VERIFICATION COMPLETED USING TWO (2) IDENTIFIERS: Name and Date of confirmedby patient verbally. FALL SCREENING: Has the patient had 2 falls in the last year or 1 fall with injury or currently using an Ambulatory Assistive Device (Walker, Cane, Wheelchair, Crutches, etc.)? No PATIENT GENDER DATA: Female. status: : No status: NO. PATIENT RELEVANT IMPLANT DATA REVIEWED: Yes PATIENT PRESENTS WITH AN IMPLANTABLE OR ATTACHED BIOMASS POWER PLANT SUPERINTENDENT: No RADIOLOGY DEPARTMENT: MR; Exam(s) Completed: Lower MSK: Tib/Fib, left PERIPHERAL IV DATA: Not applicable SIGNED BY: RT Cherri(R) June 02, 2023 1:12 PM documented in this encounterKindred Healthcare02-27-2024 History of Present illness Narrative* Ky Ford MD - 05/25/2023 10:43 AM EST Images from the original note were not included. DEPARTMENT OF ORTHOPAEDICS May 25, 2023 CC: Left lower leg pain HPI: Patient returns for reevaluation of her left gastrocnemius pain. She has persistent swelling and pain over the posterior aspect of the left leg. This is worse with prolonged activities. It is relieved with rest and elevation. She also gets some numbness extending down into the foot. Denies anyrecent trauma. She was seen in vascular surgery as well with close monitoring recommended. PAIN EVALUATION 05/25/2023 1035 Pain Level: 4 Description: Throbbing;Stiffness;Pressure Ulcer/Injury;Sore Frequency: Intermittent Past Medical History: PAST MEDICAL HISTORY Diagnosis [...] Renal disease Syncope Unspecified asthma(493.90) Family History: FAMILY HISTORY Problem Relation Age [...] other (down syndrome) Paternal Uncle Social History: Medications: gabapentin (NEURONTIN) 100 mg capsule Take 2 [...] gradually increase frequency to nightly as tolerated. [DISCONTINUED] benzoyl peroxide (BENOXYL 10) 10 % lotn Apply to affected area twice daily. (Patientnot taking: Reported on 09/11/2022) ibuprofen (MOTRIN) 600 mg tablet Take 1 [...] Take 1 capsule by mouth once daily. pantoprazole DR (PROTONIX) 40 mg tablet Take [...] mEq by mouth two times a day.) docusate sodium (COLACE) 100 mg capsule Take 100 mg by mouth twice daily as needed. cetirizine 10 mg tablet Take 1 tablet by mouth once daily. MULTI-VITAMIN ORAL Take by mouth once daily. 2 tablets daily Allergies: ALLERGIES Allergen Reactions Eucalyptus Hives, Swelling, Anaphylaxis, [...] HR, cold and clammy (subjective only) Physical Exam: Tenderness palpation of the medial head of the gastroc which is extremely sensitive to palpation. There is no palpable fluid collection. She has dorsiflexion and full extension on the right to 20 degrees at the ankle and just past neutral on the left. She has 5/5 strength with resisted plantarflexion bilaterally. Review of Systems: GENERAL: No weight loss, malaise or fevers MUSCULOSKELETAL: See HPI Imaging: Assessment/Plan: Left gastrocnemius hematoma Plan for the patient reviewed. Pain is out of proportion to physical exam findings and imaging findings. We discussed the possibility of regional pain syndrome. We discussed repeating her MRI to evaluate the resolution of the hematoma. We discussed the other causes including chronic exertional compartment syndrome versus popliteal artery entrapment. Will start with an MRI, follow her up after these images and build out treatment recommendations and possible other consultations from there. All questions answered today. Ky Ford MD This note was partially generated using [employer] voice recognition system, and there may be some incorrect words, spellings, and punctuation that were not noted in checking the note before saving. Medical Decision Making: Medical Decision Making Level: 1 - N/A documented in this encounterKind[facility]02-22-2024 Miscellaneous Notes* Telephone Encounter - Delia Bonner RN - 05/20/2023 7:09 AM EST Last OV:12/16/22 documented in this encounterKindred [facility]02-15-2024 History of Present illness Narrative* Canelo Pina APRN-MARY - 05/13/2023 9:40 AM EST Patient ID: Kaya Arce is a 37 y.o. female. Primary Care Provider: Rudy Branch DO Subjective Treatment History: Dr. Hellen Thomas [facility] Dr. Mia Meehan 37 yo who carries a history of endometriosis and chronic pelvic [facility] for [facility] opinion on the management of findings of low grade serous epithelial proliferation on 01/2022laparoscopy. 07/2014 LSO for pain, adnexal mass, elevated [...] for metastatic disease. Repeat CA125 was 22. [facility] tumor board review and consultation with Dr. Colin: Serous phenotype confirmed. Dx: Low grade serous epithelial proliferation. Not meeting diagnostic criteria for low grade serous carcinoma. Elevated risk for possible peritoneal based low grade serous carcinoma was acknowledged. Surveillance recommended. Today reports continued pelvic pain. Migratory but usually low. FH: Mother with breast cancer. PMH: endometriosis, POTS, heart murmur, asthma, arthritis, ovarian cancer PSH: 2021 hysterectomy and lesion on bowel abnormal; 2019 cholecystectomy, 2018 endo excision, 2014L oophorectomy and salpingectomy; 2003 section, 189 double hernia repair; FH: father stage V lung cancer NSCLC SH: non smoker Pelvic ultrasound 02/01/23: 1. Status post hysterectomy and left oophorectomy. 2. Normal sonographic appearance of the right ovary. Interval history: Patient is a 37 year old female with history of chronic pelvic pain s/p LSO 2014 for endometriosis and s/p total laparoscopic hysterectomy, R ovarian cystectomy, R salpingectomy andperitoneum bowel lesion biopsy, and PEDRO on 02/10/22 for low grade serous epilethial proliferation, not diagnostic for carcinoma. Interval: Patient states she has been having RUQ pain, waking her up at night. Patient still been having diarrhea. Patient having nausea, decreased appetite and energy. Patient recently taking Omeprazole twice a day now, notices no difference. Got labs drawn with GI, has not had follow up from results. Patient did call GI office this morning and they directed patient to ER. Patient states she feels like something is stuck in her throat. She does have order for pelvic floor PT but wants to feel overall in general before proceeding. Patient denies any vaginal bleeding. Assessment/Plan Patient is a 37 year old female with history of chronic pelvic pain s/p LSO 2014 for endometriosis and s/p total laparoscopic hysterectomy, R ovarian cystectomy, R salpingectomy and peritoneum bowel lesion biopsy, and PEDRO on 02/10/22 for low grade serous epilethial proliferation, not diagnostic for carcinoma. Nausea, decreased appetite and RUQ pain. PLAN: F/U with GI F/U with PCP Telehealth visit in 1 month to discuss symptoms documented in this [facility] Work Phone: 1(319) 931-536701-25-2024 NoteHNO ID: [id number] Author: SERJIO THOMPSON MD Service: ? Author Type: Physician Type: Progress Notes Filed: 04/22/2023 11:15 Note Text: NEUROSURGERY FOLLOW UP OFFICE NOTE Serjio Thompson MD [facility] Date of visit: April 22, 2023 Patient Name: Ms.Ashley Alexandro Arce Date of : 1985 Current Age: [age] year old Sex: female MRN/E# [id number] Last Office Visit: 03/23/2023 Chief Complaint: Patient presents with: Established Patient [...] follow up if no symptom relief. She presented to the office on 02/25/2023 with [...] to tachycardia according to reports. She was last seen in the office on 03/23/2023 with continued symptoms. Neck pain with BUE numbness and tingling in the last 3 digits on both hands. She noted new pain in her low left back that radiated into her hip, gluteal aspect, and the groin along with numbness to the left heel, ankle and dorsal left foot. She had been ill and treated in the ED 3 times, and had to cancel her appointment with pain management. Imaging showed moderate-sized disc herniation at C6-7. It was believed that this disc herniation was responsible for her upper extremity symptoms, but not thought to be causing her lower extremity symptoms. She was advised to see pain management to consider injections. She was started on Gabapentin, and she was to follow up in 4 weeks time, to evaluate her progress, prompting her visit today. The patient presents to the office today noting that her left leg pain has improved since her last visit and is not as bothersome to her. In the past week she has been experiencing posterior neck pain that she describes as sharp, pressure with intermittent numbness and tingling. She notes this to intermittently radiated to bilateral upper extremities. She has not been able to follow up with pain management. She wants to avoid surgery if possible, wanting to try maybe chiropractic or massage therapy. She is here for evaluation and plan of care. Symptoms: as noted above PREVIOUS CONSERVATIVE TREATMENTS: PT - 01/20/2023, 01/26/2023(intolerance due to tachycardia) 02/01/2023, 02/15/2023 Pain management - appointment scheduled for 03/19/2023 - canceled (no reschedule) Tylenol PREVIOUS SURGERY: None PAIN EVALUATION 04/22/2023 1038 Pain Level: 5 Pain Location: Neck Description: Aching;Stabbing Duration Amount of Time: 1 Duration Units: Weeks Frequency: Continuous Intervention/Comfort measure: Medication PAST MEDICAL HISTORY Diagnosis Date Abnormal glandular [...] (hypertension) Hypokalemia Interstitial cystitis Irregular menses Kidney stone (more content not included)...[facility] 04-21-2023 History of Present illness Narrative* Danay Ramires APRN-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 - 04/21/2023 10:30 AM EST Subjective Patient ID: Kaya Arce is a 37 y.o. female who presents for No chief complaint on file.. HPI MICHELLE Dr. Delgado 09/20/18: 33-year-old female presents [...] omeprazole 20 mg once a day and ispreviously on ranitidine but stopped taking it since [...] blood in her stools every day and hasbeen having diarrhea. An MR enterography was ordered but she has not completed it. I do not feel she has any evidence of inflammatory bowel disease at this time. I suspect her urgent symptoms for the past week of epigastric pain and regurgitation may be relatedto esophagitis. I would aggressively treat with omeprazole 40 mg twice a day. I have sent a prescription to her pharmacy but in the meantime she can take her current 20 mg tablet twice a day to see if she can tolerate regarding side effects. She will follow-up with Aston Rudolph CNP in one month and if her symptoms do not improve we can consider an endoscopy. ->Colonoscopy [address] Delgado: Internal hemorrhoid. A single diminutive benign-appearing polyp found in the rectum and removed, polyp pathology unremarkable. Random biopsies unremarkable. ->[facility] GI Dr. Young 2019:Colonsocopy-> the entire colon [...] pain. Patient wanting to establish with [facility] once again to discuss chronic GI complaints. Thorough investigation in the EMR with findings of multiple colonoscopies and multiple visits with sodium methylate operator at [facility] and [facility]. Patient is a poor informant, had [...] are described as yellow and brown in color.She does experience occasional red blood with wiping [...] of mesalamine enemas and burst of steroids "can only tolerate dexamethasone". She reports that her PCP prescribes her burst of steroids to help with her overall complaints. She endorses history of lupus and mixed connective tissue disorder, but does not regularly see a jewel bearing facer. She endorses a significant amount of stress [...] complaints. She has been seen by multiple sodium methylate operator at different healthcare systems with no findings [...] Beltre 04/21/23 12:41 PM documented in this [facility] Work Phone: 1(605) 807-692101-18-2024 History of Present illness Narrative* WESLEY Obando - 04/15/2023 10:00 AM EST 04/15/23 [id number] Difficulty urinating, gross hematuria Subjective HPI Kaya [...] R ovary; per patient, currently under surveillance forfindings of low grade serous epithelial proliferation on 01/[address] lapar[address]. Patient [address] Meehan, PERFORATOR OPERATOR in [employer]; I saw this patient in past, prior to [address] [place] office [place]; her primary care is Dr. 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 If Yes, link this order to the research study Answer: No Creatinine, Serum Standing Status: Future Standing Expiration Date: 04/15/2024 Order Specific Question: Release result to [employer] Answer: Immediate [1] POCT UA Automated manually resulted Order Specific Question: Release result to [employer] Answer: Immediate [1] Hematuria: CT urogram call to schedule [phone] Creatinine one week prior Urine cytology Cystoscopy [...] desires pelvic pain suppositories [place] [facility] [place] [facility] Nurse line [phone] Follow up w me virtually 1 mos after cysto WESLEY Obando Lab Results Component Value Date GLUCOSE 127 (H) 08/17/2018 CALCIUM 9.5 08/17/2018 NA 141 08/17/2018 K 3.8 08/17/2018 CO2 25 08/17/2018 CL 106 08/17/2018 BUN 9 12/11/2020 CREATININE 0.71 12/11/2020 [facility] Work Phone: 1(756) 983-838701-18-2024 Instructions* Patient Instructions* WESLEY Obando - 04/15/2023 10:00 AM EST Hematuria: CT urogram call to schedule [phone] Creatinine one week prior Urine cytology Cystoscopy Urine culture 2 weeks prior to cystoscopy Pelvic pain, Refer to PFPT to help relax pelvic floor, has seen Nohemy Madrigal in past Uribel once daily PRN, may consider medicine for OAB at some point But now difficulty w urinating, likely pelvic floor related, voiding dysfunction Nurse line [phone] Follow up w me virtually 1 mos after cysto [facility] Work Phone: 1(388) 896-641301-17-2024 History of Present illness Narrative* Canelo Liane Pina, TRACIE-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 - 04/14/2023 11:40 AM EST Patient ID: Kaya Arce is a 37 y.o. female. Primary Care Provider: Rudy Branch DO Subjective Treatment History: Dr. Hellen Thomas [facility] Dr. iMa Meehan 37 yo who carries a history of endometriosis and chronic pelvic [facility] for second opinion on the management of findings of low grade serous epithelial proliferation on 01/2022laparoscopy. 07/2014 [facility] for pain, adnexal mass, elevated [...] for metastatic disease. Repeat CA125 was 22. [facility] tumor board review and consultation with Dr. [...] laparoscopic hysterectomy, R ovarian cystectomy, R salpingectomy andperitoneum bowel lesion biopsy, and PEDRO on 02/10/22 [...] IMPRESSION: Nonobstructing left-sided nephrolithiasis. Urine culture =negative [id number], last 11.6. Interval: Patient states her pelvic pain remains. She states she had one visit with pelvic floor PT, they had her do Kegels which caused vaginal spasms and her to feel worse. She states she feels herurinary retention is getting worse. She also states [...] Referral for new pelvic floor office in [place] or [place] Urogyn referral [place] [facility] referral [facility] [place] [facility] in 1 month to discuss symptoms documented in this [facility] Work Phone: 1(614) 784-208501-09-2024 History of Present illness Narrative* WESLEY Aly - 04/06/2023 10:20 AM EST Patient ID: Kaya Arce is a 37 y.o. female. Primary Care Provider: Rudy Branch DO Subjective Treatment History: Dr. Hellen [facility] Dr. Mia Meehan 37 yo who carries a history of endometriosis and chronic pelvic pain followed by [facility] presents for second opinion on the management of findings of low grade serous epithelial proliferation on 01/2022laparoscopy. 07/2014 LSO for pain, adnexal mass, elevated [...] for metastatic disease. Repeat CA125 was 22. [facility] tumor board review and consultation with Dr. [...] laparoscopic hysterectomy, R ovarian cystectomy, R salpingectomy andperitoneum bowel lesion biopsy, and PEDRO on 02/10/22 for low grade serous epilethial proliferation, not diagnostic for carcinoma. Here for 6 month follow up. [id number]. She states she has been having significant [...] red to black blood that fills the toilet.She reports new acne and a 20 lbs weight gain over the past year. She denies vaginal bleeding or pain. She denies being sexually active. Physical Exam: Constitutional: Doing well. CHI Eyes: PERRL ENMT: Moist mucus membranes Head/Neck: [...] lesions or masses. Surgically absent uterus, cervix, andadnexa. Rectovaginal exam: smooth rectovaginal septum without lesions [...] F/U in 6 months or as needed, [facility] office Ca125 today, F/U results Will have PCP follow kidney stones Patient to start pelvic floor PT as scheduled HARVINDER Childers-S2 I was present with the DESIGNER student who participated in the documentation of this note. I have personally seen and re-examined the patient and performed the medical decision-making components (assessment and plan of care). I have reviewed the DESIGNER student documentation and verified the findings in the note as written with additions or exceptions as stated in the body of this note. documented in this [facility] Work Phone: 1(743) 671-526512-29-2023 NoteHNO ID: [id number] Author: Cammy oByce RD Service: ? Author Type: Registered Dietitian Type: Progress Notes Filed: 03/26/2023 1:10 PM Note Text: [facility] Medical Nutrition Therapy Visit Type: Virtual: "I have discussed the nature of this visit with the patient which will occur via Distance Health (Phone, Virtual Visit) and she agrees to proceed with this interaction". Patient states reason for visit: POTS/ PCOS/ [...] How many hours of sleep on average? "Sleep is not good. It is minimal and interrupted" Stress: High, fathers health, everything going on [...] (TENORMIN) 25 mg tab (more content not included)...[facility] 03-26-2023 Hospital Discharge instructions Patient Education 03/25/2023 23:36:18 Chest Wall Pain, Costochondritis Chest Wall Pain: Costochondritis The chest pain that you have had today is caused by costochondritis. This condition is caused by aninflammation of the cartilage joining your ribs to [...] but it is not dangerous. It usually goesaway in 1 to 2 weeks. But it [...] to control pain, unless another pain medicine wasprescribed. If you have liver or kidney disease or ever had a stomach ulcer, talk with your healthcare provider before using these medicines. You can also help ease pain by using a hot, wet compress or heating pad. Use this with or without amedicated skin cream that helps relieves pain. Do [...] or as directed by your healthcare provider [phone] The [employer]. [address] [place] [address]. All rights reserved. This information is not intended as a substitute for professional medical care. Always follow yourhealthcare professional's instructions. Follow Up Care 03/25/2023 22:27:02 With:RUDY BRANCH DO Address: [address] [place] [address] When:2-4 days [facility] 12-26-2023 NoteHNO ID: [id number] Author: Serjio Thompson MD Service: ? Author Type: Physician Type: Progress Notes Filed: 03/23/2023 10:40 AM Note Text: NEUROSURGERY FOLLOW UP OFFICE NOTE Serjio Thompson MD [facility] Date of visit: March 23, 2023 Patient Name: Ms.Ashley Alexandro Arce Date of : 1985 Current Age: [age] year old Sex: female MRN/E# [id number] Last Office Visit: 03/08/2023 Chief Complaint: Patient [...] Unspecified asthma(493.90) PAST S (more content not included)...[facility] Hospital Discharge instructions Patient Education 03/14/2023 02:30:33 Self-Care for Sore Throats Self-Care for Sore Throats Sore throats happen for many reasons, such as colds, allergies, and infections caused by viruses orbacteria. In any case, your throat becomes red [...] drops, hard candy, ice chips, or frozen fruit- juice bars. Use the sugar-free versions if your diet or medical condition requires them. Gargle to ease irritation Gargling every hour or 2 can ease irritation. Try gargling with 1 of these solutions: 1/4 teaspoon of salt in 1/2 cup of warm water An tqix-tya-pevueep anesthetic gargle Use medicine for more relief Bjyc-guk-fhipnht medicine can reduce sore throat symptoms. Ask your pharmacist if you have questions about which medicine to use: Ease pain with anesthetic sprays. Aspirin or an aspirin substitute also helps. Remember, never giveaspirin to anyone 18 or younger, or if [...] swollen glands in the neck or jaw 9136-7109 [employer]. [address] [place] [address], [place] [address]. All rights reserved. This information is not intended as a substitute for professional medical care. Always follow yourhealthcare professional's instructions. 03/14/2023 02:30:33 Vomiting (Adult) Vomiting (Adult) Vomiting is a common symptom that may be due to different causes. These include gastroenteritis ("stomach flu"), food poisoning and gastritis. There are other [...] and water are not available, use alcohol-based automatic buffing wheel former to keep from spreading the infection to others. Wash your hands for at least 20 seconds. Humming the happy birthday song twice while you wash is aneasy way to make sure you've washed for 20 seconds. Wash your hands after using the toilet, before and after preparing food, before eating food, after changing a diaper, cleaning a wound, caring for a sick person, and blowing your nose, coughing, or sneezing. You should also wash your hands after caring for someone who is sick, touching pet food, ortreats, and touching an animal, or animal waste. [...] Yellow color of the eyes or skin 8464-8613 The [employer]. [address] [place] [address]. All rights reserved. This information is not intended as a substitute for professional medical care. Always follow yourhealthcare professional's instructions. Follow Up Care 03/14/2023 00:21:52 With:RUDY BRANCH Address: [address] [place] [phone]- Business (1) When:2-4 days Comments:As discussed, use cough drops with benzocaine or Cetacaine to help numb your throat, drink plenty fluids, you may try Tessalon Perles for cough. Use ondansetron as needed for nausea. Follow-up closely with your doctor, return if any worsening or concerning symptoms. [facility] 12-17-2023 Note Discharge Instructions Thank you for allowing [facility] to assist you with your healthcare needs. The following is importantdischarge information regarding your hospital visit. Diagnosis from [...] if any worsening or concerning symptoms. Where: [address] [place] [address]- Business (1) Allergies Keflex Latex doxycycline tetracycline Medications Please ask your primary doctor or pharmacist before taking any other medication not listed, including over the counter drugs, herbal medications, vitamins and or supplements as they may interact withur home medications. What How Much When Instructions Last Dose New benzonatate (Tessalon Perles 100 mg oral capsule) 1 cap by mouth Three (3) times a day Duration: 7 Days Printed Prescription Changed ondansetron (ondansetron 4 mg oral tablet, disintegrating) 1 tab(s) by mouth Three (3) times a day Duration: 3 Days Printed Prescription Changed ondansetron (ondansetron 4 mg oral tablet, disintegrating) Unchanged acetaminophen-HYDROcodone (Oceana 325- 5 mg oral tablet) 1 tab(s) [...] the pill whole. Sucking or chewing the capsulemay cause serious side effects. Benzonatate is not approved for use by anyone younger than 10 years old. An overdose of benzonatatecan be fatal to a young child. What [...] than 10 years old. An overdose of benzonatatecan be fatal, especially to a young child who has accidentally swallowed the medicine. How should I take benzonatate? Follow all directions on your prescription label and read all medication guides or instruction sheets. Use the medicine exactly as directed. Never suck or chew on a benzonatate capsule. Swallow the pill whole. Sucking or chewing the capsulemay cause serious side effects. Store at room [...] if you have signs of an allergic reaction:hives; difficult breathing; swelling of your face, lips, [...] may report side effects to FDA at 1-988-CYQ-6470. What other drugs will affect benzonatate? Using benzonatate with other drugs that make you drowsy can worsen this effect. Ask your doctor before using opioid medication, a sleeping pill, a muscle relaxer, or medicine for anxiety or seizures. Other drugs may affect benzonatate, including prescription and uxnt-ahm-mjlfyrf medicines, vitamins, and herbal products. Tell your [...] to ensure that the information provided by [employer]. ('[employer]') is accurate, up-to-date, and complete, but no guarantee is made to that effect. Drug information contained herein may be time sensitive. [employer] information has been compiled for use by healthcare practitioners and consumers in the [place] and therefore [employer] does not warrant that uses outside of the [place] are appropriate, unless specifically indicated otherwise. [employer] drug information does not endorse drugs, diagnose patients or recommend therapy. [employer] drug information isan informational resource designed to assist licensed healthcare practitioners in caring for their p atients and/or to serve consumers viewing this service as a supplement to, and not a substitute for, the expertise, skill, knowledge and judgment of healthcare practitioners. The absence of a warningfor a given drug or drug combination in no way should be construed to indicate that the drug or drug combination is safe, effective or appropriate for any given patient. [employer] does not assume any responsibility for any aspect of healthcare administered with the aid of information [employer] provides. The information contained herein is not intended to cover all possible uses, directions, precautions, warnings, drug interactions, allergic reactions, or adverse effects. If you have questions about the drugs you are taking, check with your doctor, nurse or pharmacist. Copyright 4704-3984 [employer]. Version: .. Revision Date: 10/29/2022. ondansetron (oral) (on KATT [...] provided, or with a special dose-measuring spoon ormedicine cup. If you do not have a [...] the body--agitation, hallucinations, fever, fast heart rate, overactivereflexes, nausea, vomiting, diarrhea, loss of coordination, fainting. Common side effects may include: diarrhea or constipation; headache; drowsiness; or tired feeling. This is not a complete list of side effects and others may occur. Call your doctor for medical advice about side effects. You may report side effects to FDA at 5-144-WSV-7895. What other drugs will affect ondansetron? Ondansetron [...] interact with ondansetron. This includes prescription and nixu-mur-sxdtsim medicines, vitamins, and herbal products. Give a [...] to ensure that the information provided by [employer]. ('[employer]') is accurate, up-to-date, and complete, but no guarantee is made to that effect. Drug information contained herein may be time sensitive. [employer] information has been compiled for use by healthcare practitioners and consumers in the [place] and therefore [employer] does not warrant that uses outside of the [place] are appropriate, unless specifically indicated otherwise. [employer] drug information does not endorse drugs, diagnose patients or recommend therapy. [employer] drug information isan informational resource designed to assist licensed healthcare practitioners in caring for their p atients and/or to serve consumers viewing this service as a supplement to, and not a substitute for, the expertise, skill, knowledge and judgment of healthcare practitioners. The absence of a warningfor a given drug or drug combination in no way should be construed to indicate that the drug or drug combination is safe, effective or appropriate for any given patient. [employer] does not assume any responsibility for any aspect of healthcare administered with the aid of information [employer] provides. The information contained herein is not intended to cover all possible uses, directions, precautions, warnings, drug interactions, allergic reactions, or adverse effects. If you have questions about the drugs you are taking, check with your doctor, nurse or pharmacist. Copyright 3087-8212 [employer]. Version: 16.. Revision Date: 10/29/2022. Education Materials Self-Care for Sore Throats Sore throats happen for many reasons, such as colds, allergies, and infections caused by viruses orbacteria. In any case, your throat becomes red [...] drops, hard candy, ice chips, or frozen fruit- juice bars. Use the sugar-free versions if your diet or medical condition requires them. Gargle to ease irritation Gargling every hour or 2 can ease irritation. Try gargling with 1 of these solutions: 1/4 teaspoon of salt in 1/2 cup of warm water An jtbo-vdk-rwmgvtl anesthetic gargle Use medicine for more relief Jcdr-suw-wjmyqda medicine can reduce sore throat symptoms. Ask your pharmacist if you have questions about which medicine to use: Ease pain with anesthetic sprays. Aspirin or an aspirin substitute also helps. Remember, never giveaspirin to anyone 18 or younger, or if [...] swollen glands in the neck or jaw 8667-7777 The [employer]. [address] [place] [address]. All rights reserved. This information is not intended as a substitute for professional medical care. Always follow yourhealthcare professional's instructions. Vomiting (Adult) Vomiting is a common symptom that may be due to different causes. These include gastroenteritis ("stomach flu"), food poisoning and gastritis. There are other [...] and water are not available, use alcohol-based automatic buffing wheel former to keep from spreading the infection to others. Wash your hands for at least 20 seconds. Humming the happy birthday song twice while you wash is aneasy way to make sure you've washed for 20 seconds. Wash your hands after using the toilet, before and after preparing food, before eating food, after changing a diaper, cleaning a wound, caring for a sick person, and blowing your nose, coughing, or sneezing. You should also wash your hands after caring for someone who is sick, touching pet food, ortreats, and touching an animal, or animal waste. [...] Yellow color of the eyes or skin 4838-2138 The [employer]. [address] [place] [address], [place] [address]. All rights reserved. This information is not intended as a substitute for professional medical care. Always follow yourhealthcare professional's instructions. Additional Information VACCINATE! IT SAVES LIVES! Members of the community who have not yet received the COVID-19 vaccine and would like to receive it can visit one of [facility] vaccine clinics. There are many vaccine clinic locations within the [facility]. For locations and available times, please visit www.gettheshot.coronavirus.[place].gov/. It is important to note that some COVID mobile vaccine clinics are held outdoors and may be canceled in rainy or stormy conditions. To learn more about pediatric vaccinations (ages 5-11), we invite you to visit the [facility] webpage. https://www.[facility].org/pages/2816-Ofiio-Vklxffkjeky-Zejcfwxkgu-Uwxwk-Vxx stions.htmlTo learn more about the COVID-19 vaccine, we invite you to visit the CDC website for a list of frequently asked questions. https://www.cdc.gov/coronavirus/2019-ncov/vaccines/faq.html [facility] Patient Portal Access Instructions: Stay connected with your healthcare team and access your personal medical information anytime with the [facility] Patient Portal. If you would like a full copy of your medical records please contact the [facility] Medical Records Department Wednesday through Wednesday between 8a.m. and 4:30p.m. Please follow the directions below to access the portal: 1.Access the email account you provided upon registration to the hospital.2.Look for an invitation email from [facility].3.Open the email and access the invitation link: Accept Invitation to [facility]4.Fill in the required carias to create your account. Sign into [email or web address] with your username and password that you [...] you will allow to register on the [facility] Patient Portal for access to your information. You can also access the [facility] Patient Portal on the EventMama. Simply click on "Health Records" under "HealthDaSimplicita Software" and then click on the Na logo. HOW TO SAFELY DISPOSE OF PRESCRIPTION MEDICATIONS Please use one of the following methods to safely dispose of your unused medications. 1.Use a drug disposal kit: the drug disposal pouch allows you to safely discard your old and unuseddrugs. Ask your nurse to give you one when you are discharged.2.Visit a local take-back location: Many local pharmacies and police departments have programs that collect old and unwanted prescriptiondrugs. Call your local pharmacy or go to http://[employer].Telepath/6V2Os8i to find one close to you.3.Make use of household items: Use cat litter or old coffee grounds to dispose medications if other options arenot available. Mix your drugs with these household products, seal them in an airtight container andthrow it into the garbage. Call [facility]: [phone] to be sure your drugs can be [...] drowsiness, such as benzodiazepines, also known as benzos,including diazepam and alprazolam, muscle relaxants or sleep aids. Never sell or share prescriptionopioids. This is illegal. Store opioids in a [...] aware that I should contact my doctor. 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 Sometimes it causes generalized symptoms like "aching all over," feeling tired, loss of energy, or loss of appetite. A viral illness usually lasts anywhere from several days to several weeks, but sometimes it lasts longer. In some cases, a more serious infection can look like a viral syndrome in the first few days of the illness. You may need another exam and additional tests to know the difference. Watch for thewarning signs listed below for when to seek medical advice. Home care Follow these guidelines for taking care of yourself at home: If symptoms are severe, rest at home for the first 2 to 3 days. Stay away from cigarette smoke - both your smoke and the smoke from others. You may use ccbu-bsu-tffghns acetaminophen or ibuprofen for fever, muscle aching, [...] replacement and sports drinks; and decaffeinated teas andcoffee. If you have been diagnosed with a kidney disease, ask your healthcare provider how much andwhat types of fluids you should drink to prevent dehydration. If you have kidney disease, drinking too much fluid can cause it build up in the your body and be dangerous to your health. Ypwx-vaw-vjviznp remedies won't shorten the length of the [...] or as directed by your healthcare provider [phone] The [employer]. [address] [place] [address], [place] [address]. All rights reserved. This information is not intended as a substitute for professional medical care. Always follow yourhealthcare professional's instructions. Follow Up Care 03/12/2023 09:42:13 With:RUDY BRANCH DO Address: [facility] [place] [address]- When:2-4 days [facility] 12-15-2023 Note Discharge Instructions Thank you for allowing [facility] to assist you with your healthcare needs. The following is importantdischarge information regarding your hospital visit. Diagnosis from Today's Visit Cough Fever Viral syndrome What to Do Next Instructions from Your Care Team No qualifying data available. Post Acute Orders No qualifying data available. You Need to Schedule the Following Appointments Follow Up with RUDY BRANCH DO When Within 2-4 days Where: [address] [place], [place] [address], [place] [id number]- Allergies Keflex Latex doxycycline tetracycline Medications Please ask your primary doctor or pharmacist before taking any other medication not listed, including over the counter drugs, herbal medications, vitamins and or supplements as they may interact withyour home medications. What How Much When Instructions Last Dose Unchanged acetaminophen-HYDROcodone (Oceana 325- 5 mg oraltablet) 1 tab(s) by mouth Every 6 hours [...] medication providers or retail pharmacies. Education Materials Viral Syndrome (Adult) A viral illness may [...] diarrhea. Sometimes it causes generalized symptoms like "aching all over," feeling tired, loss of energy, or loss of appetite. A viral illness usually lasts anywhere from several days to several weeks, but sometimes it lasts longer. In some cases, a more serious infection can look like a viral syndrome in the first few days of the illness. You may need another exam and additional tests to know the difference. Watch for thewarning signs listed below for when to seek medical advice. Home care Follow these guidelines for taking care of yourself at home: If symptoms are severe, rest at home for the first 2 to 3 days. Stay away from cigarette smoke - both your smoke and the smoke from others. You may use icrz-tbc-kxjoqym acetaminophen or ibuprofen for fever, muscle aching, [...] replacement and sports drinks; and decaffeinated teas andcoffee. If you have been diagnosed with a kidney disease, ask your healthcare provider how much andwhat types of fluids you should drink to prevent dehydration. If you have kidney disease, drinking too much fluid can cause it build up in the your body and be dangerous to your health. Aesl-goh-wsezdkr remedies won't shorten the length of the [...] or as directed by your healthcare provider [phone] [employer] [facility]. [address] [place] [address], [place] [address]. All rights reserved. This information is not intended as a substitute for professional medical care. Always follow yourhealthcare professional's instructions. Additional Information VACCINATE! IT SAVES LIVES! Members of the community who have not yet received the COVID-19 vaccine and would like to receive it can visit one of [facility] vaccine clinics. There are many vaccine clinic locations within the [facility]. For locations and available times, please visit www.[email or web address].[place].gov/. It is important to note that some COVID mobile vaccine clinics are held outdoors and may be canceled in rainy or stormy conditions. To learn more about pediatric vaccinations (ages 5-11), we invite you to visit the [facility] webpage. https://www.[facility].org/pages/1845-Lsjnd-Cgnlqbgqqil-Wtkbhlqsut-Eipnh-Qoa stions.htmlTo learn more about the COVID-19 vaccine, we invite you to visit the CDC website for a list of frequently asked questions. https://www.cdc.gov/coronavirus/2019-ncov/vaccines/faq.html [facility] Patient Portal Access Instructions: Stay connected with your healthcare team and access your personal medical information anytime with the [facility] Patient Portal. If you would like a full copy of your medical records please contact the [facility] Records Department Wednesday through Wednesday between 8a.m. and 4:30p.m. Please follow the directions below to access the portal: 1.Access the email account you provided upon registration to the hospital.2.Look for an invitation email from [facility].3.Open the email and access the invitation link: Accept Invitation to [facility]4.Fill in the required carias to create your account. Sign into [email or web address] Platform with your username and password that you [...] you will allow to register on the [facility] Patient Portal for access to your information. You can also access the [facility] Patient Portal on the byyd nabor. Simply click on "Health Records" under "SOL ELIXIRSDaSimplicita Software" and then click on the Storefront logo. HOW TO SAFELY DISPOSE OF PRESCRIPTION MEDICATIONS Please use one of the following methods to safely dispose of your unused medications. 1.Use a drug disposal kit: the drug disposal pouch allows you to safely discard your old and unuseddrugs. Ask your nurse to give you one when you are discharged.2.Visit a local take-back location: Many local pharmacies and police departments have programs that collect old and unwanted prescriptiondrugs. Call your local pharmacy or go to http://[employer].Telepath/5N8Sa4z to find one close to you.3.Make use of household items: Use cat litter or old coffee grounds to dispose medications if other options arenot available. Mix your drugs with these household products, seal them in an airtight container andthrow it into the garbage. Call [facility]: [phone] to be sure your drugs can be [...] drowsiness, such as benzodiazepines, also known as benzos,including diazepam and alprazolam, muscle relaxants or sleep aids. Never sell or share prescriptionopioids. This is illegal. Store opioids in a secure place and out of reach of others (including children, family, friends and visitors). The last page(s) of this document has been signed and retained as a CHART COPY Signatures Patient Education Materials Viral Syndrome (Adult) Medication Leaflets My discharge plan and instructions have been reviewed and explained to me and I,KAYA ARCE understand my current condition and have read and understand these discharge instructions. I have received a written copy of the plan/instructions. If I have questions, I am aware that I should contact my doctor. Patient/Director Of Grants Signature: Date/Time: Relationship to Patient: Witness Name/Signature: Date/Time: [facility]12-15-2023 SARS-CoV-2 (COVID-19) RNA EL+probe Ql (Nph)Negative *NA* (03/12/23 9:58 AM)AO Auto Urine [id number] Miscellaneous Notes* Telephone Encounter - Jet Sood - 03/08/2023 11:37 AM EST I left patient a vm informing her that her upcoming appt had been moved up to 03/23 at [address] [facility] office if she needs to reschedule. documented in this [facility]12-[facility]-2023 Miscellaneous Notes* Telephone Encounter - Danay Silverio - 03/05/2023 9:19 AM EST Received referral from Serjio Thompson MD to schedule patient for Consideration of cervical TIFF, neck pain. LVM for patient to return call. Offered patient appointment in [place] as [facility] is close. Danay Silverio documented in this encounter[facility]11-30-2023 History of Present illness Narrative* Serjio Thompson MD - 02/25/2023 11:30 AM EST NEUROSURGERY FOLLOW UP OFFICE NOTE [facility]jio Thompson [facility] Date of visit: February 25, 2023 Patient Name: Ms.Ashley Alexandro Arce Date of : 1985 Current Age: [age] year old Sex: female MRN/E# [id number] Last Office Visit: 12/15/2022 Chief Complaint: No chief complaint on file. Past Medical/Surgical History: Ms. Arce was a 37-year-old woman with a history of fibromyalgia, Crohn's disease, ankylosing spondylitis, lupus, POTS, PCOS. She denies smoking. HPI: The patient was initially seen in office as a new patient 10/20/2022 with with chronic neck and backpain and stiffness, as well as recently worsening [...] for symptomatic relief with follow up if nosymptom relief. She last presented virtually on 12/15/2022 [...] states pain is mostly present in the posterioraspect of LLE into her foot. She has subjective bilateral LE weakness. She states her inability to sit or lay for any length of time is most concerning to her. 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 I recommended that she see a paperhanger and painter to consider an injection in her [...] history were reviewed, confirmed, and updated as necessary:allergies, current medications, past family history, past medical history, past social history, past surgical history, problem list, HPI, and ROS obtained by others. Some elements may be copied from a previous office note and have been reviewed/updated where appropriate. All portions reflect current medical decision making from today. The clinical and radiographic findings as well as the risks, benefits and alternatives of treatmenthave been reviewed in detail with the patient. Advised to call the office if symptoms worsen or new symptoms develop. Patient expressed understanding and is in agreement with plan. Serjio Thompson MD [facility] Medical Decision Making: Problems: Moderate: 1+ chronic illnesses with change Data: Unique source(s) for external note(s) reviewed: 1 Unique test result(s) reviewed: 2 Unique test(s) ordered: 1 Risk: Moderate: Moderate risk from testing/treatment Medical Decision Making Level: 4 - Moderate This note was partially generated using [employer] voice recognition system, and there may be some incorrect words, spellings, and punctuation that were not noted in checking the note before saving. documented in this encounterKindred Healthcare11-30-2023 NoteHNO ID: [id number] Author: Serjio Thompson MD Service: ? Author Type: Physician Type: Progress Notes Filed: 02/25/2023 2:49 PM Note Text: NEUROSURGERY FOLLOW UP OFFICE NOTE Serjio Thompson MD [facility] Date of visit: February 25, 2023 Patient Name: Ms.Ashley Alexandro Arce Date of : 1985 Current Age: [age] year old Sex: female MRN/E# [id number] Last Office Visit: 12/15/2022 Chief Complaint: No [...] Arthritis Asthma Back pain Calculus of kidney 2008 4 stones, followed by Dr. long Cardiac [...] yr old bilat inguinal hernia repair REMOVAL 2019 SIGMOIDOSCOPY FLX DX W/COLLJ SPEC BR/WA IF PFRMD Sigmoidoscopy, flexible (more content not included)...[facility]11-30-2023 History of Present illness Narrative* Lissy Martino RT(R) - 02/25/2023 10:15 AM EST Radiology Service Progress Note PATIENT NAME: Kaya Arce DATE OF SERVICE: February 25, 2023 TIME: 10:27 AM PATIENT IDENTITY VERIFICATION COMPLETED USING TWO (2) IDENTIFIERS: Name and Date of confirmedby patient verbally. FALL SCREENING: Has the patient [...] 25, 2023 10:27 AM documented in this encounterKindred Healthcare11-30-2023 NoteHNO ID: [id number] Author: Lissy Martino RT(R) Service: ? Author [...] BY: RT Gilberto(R) February 25, 2023 10:27 [facility]11-17-2023 Miscellaneous Notes* Telephone Encounter - Sonny Graf - 02/12/2023 8:45 AM EST Pt refused scheduling for earliest available with Lilia(.) She asked if she can be squeezed in earlier anywhere for her rash. documented in this encounterKindred Healthcare11-06-2023 History of Present illness Narrative* Tamika Platt, PT - 02/01/2023 10:17 AM EST Episode Visit Count: 3 Therapist That Will [...] adding isometrics to HEP SUBJECTIVE: pt. states "shes tired" when unable to follow PT cues to [...] exercises in regards to decreasing fatigue , includingbalance, increase ease of ADL, and ROM and [...] 1050 Tamika Platt PT documented in this [facility]11-06-2023 History of Present illness Narrative* Tamika Traylor RDMS - 02/01/2023 9:15 AM EST Radiology Service Progress Note PATIENT NAME: Kaya Arce DATE OF SERVICE: February 01, 2023 TIME: 11:25 AM PATIENT IDENTITY VERIFICATION COMPLETED USING TWO (2) IDENTIFIERS: Name and Date of confirmedby patient verbally. FALL SCREENING: Has the patient had 2 falls in the last year or 1 fall with injury or currently using an Ambulatory Assistive Device (Walker, Cane, Wheelchair, Crutches, etc.)? No PATIENT GENDER DATA: Female. status: : No status: NO. PATIENT RELEVANT IMPLANT DATA REVIEWED: Not Applicable RADIOLOGY DEPARTMENT: Ultrasound PERIPHERAL IV DATA: Not applicable SIGNED BY: Tamika Traylor RDMS T February 01, 2023 11:25 AM documented in this [facility]11-03-2023 Miscellaneous Notes* Telephone Encounter - Tamika Sterling LPN - 01/29/2023 9:26 AM EDT MICHELLE: 09/11/22 documented in this [facility]10-31-2023 History of Present illness Narrative* Tamika Platt PT - 01/26/2023 8:59 AM EDT Episode Visit Count: 2 Therapist That Will [...] stand by assist during pre-gait/gait training to preventfalls and insure safety. Gait belt utilized during session for safety. Skilled judgment used to assess selection, proper sizing, and proper use of assistive device. Provided written instruction for home program to facilitate proper performance and compliance. Correct performance of home program was facilitated with verbal, visual, and tactile cueing. Self-Skilled Nursing Management: 1: at length, discussed importance of [...] 937 Tamika Platt PT documented in this encounterKind[facility]10-25-2023 History of Present illness Narrative* Tamika Platt PT - 01/20/2023 5:49 PM EDT Episode Visit Count: 1 Therapist That Will [...] of strain of gastrocnemius muscle of left lowerextremity that interferes with standing, rising from a chair, walking, sleeping . She presents withimpairments in ADL's, balance, gait, independence in exercise, [...] of Care: created on 01/20/23 through 02/24/23 [place] in home exercise program. Patient will decrease [...] Planned: 5 Planned Treatment Interventions: Therapeutic exercise (73062), Neuromuscular re- education (80773), Manual therapy (64512), Therapeutic activities (97764), Self- assisted management (67907), Gait Training (48219) PLAN FOR NEXT VISIT: assess symptom response to PROM stretching Patient demonstrates good understanding of plan of care and treatment. The above goals and plan of care were discussed and agreed upon by patient/family. SUBJECTIVE: for L lower leg pain that onset with stepping in her garden. She fell and felt tearing which she describes like "breaking spaghetti." Pt. couldn't WB or amb. Ambulance was called. She was taken to ER. ED wrapped the leg. X-ray negative. Pt. refused casting as recommended by ED per pt. report. Pt. couldn't tolerated US at ED, but did have it done later. ED physician determined a plantaris tendon per pt. report, MRI showed a L gastroc tear per pt. report. Pt. also reports " they found a blood clot not in the vein but in the muscle." Inconsistent with pt. chart. Pt. has not [...] Demonstration TREATMENT: PT Treatment Interventions: Therapeutic Exercise, Self-Skilled Nursing Management Evaluation Therapeutic Exercise: 1: *Seated Heel [...] exercises in regards to decreasing fatigue , includingbalance, increase ease of ADL, and ROM and function . Patient education as noted. Self-Skilled Nursing Management: 1: *at length discussed the importance [...] 1829 Tamika Platt PT documented in this encounter[facility]10-25-2023 Miscellaneous Notes* Telephone Encounter - Farideh De Los Santos, AT - 01/20/2023 12:36 PM EDT Patient spoke with Elisabet Springer on 01-14-23. First PT appointment is today. Glenis Lau, AT, ATC documented in this encounterKindred Healthcare10-13-2023 Miscellaneous Notes* Telephone Encounter - Farideh De Los Santos AT - 01/08/2023 11:04 AM EDT Spoke with patient on the phone. Last [...] of being out of breath with minimal exertionwhich she describes as mild. No difficult breathing or chest pain. I advised that she needs to go today to get an US to rule out/assess for potential DVT. This order had been placed on Wednesday when she saw Dr. Ford. I called the [facility] location which was the patient's preferred location and they are able to get her in for an US at noon today (an hour from now). Advised patient that this is at the [facility] location. ([address] [facility]). Patient acknowledged and she will be there at noon for the US. I will follow up with the patient after this is completed this afternoon. All questions were answered. Glenis Lau, AT, ATC documented in this encounterKindred Healthcare10-10-2023 History of Present illness Narrative* Ky Ford MD - 01/05/2023 3:13 PM EDT I have reviewed the history and physical obtained by my resident or fellow. HPI explored in detail with the patient. Pt was seen by me and cameron findings were confirmed. I agree with the findings as documented. I personally participated the patient's assessment and treatment recommendations. Ky Ford MD * Anmol Davis MD - 01/05/2023 1:48 PM EDT DEPARTMENT OF ORTHOPAEDICS Consultation as a request [...] followed up with an orthopedic surgeon in [place] where they told her that she could weight-bear as tolerated and gave her a boot for comfort. She eventually obtained an MRI Whichshe brought with her today on a disc. [...] history of malignancy. Also endorses a history ofliver and kidney issues. Endorses POTS. 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 This demonstrates hematoma between the medial head of the gastroc and the soleus muscle near the myotendinous junction. PHYSICAL EXAM: [facility] 02/10/2022 General: Appears stated age, well built, [...] above. Anmol Davis MD documented in this encounterKindred Healthcare10-10-2023 History of Present illness Narrative* Wilmar Coronado, RT(R) - 01/05/2023 1:30 PM EDT Radiology Service Progress Note PATIENT NAME: Kaya Arce DATE OF SERVICE: January 05, 2023 TIME: 1:44 PM PATIENT IDENTITY VERIFICATION COMPLETED USING TWO (2) IDENTIFIERS: Name and Date of confirmedby patient verbally. FALL SCREENING: Has the patient had 2 falls in the last year or 1 fall with injury or currently using an Ambulatory Assistive Device (Walker, Cane, Wheelchair, Crutches, etc.)? No PATIENT GENDER DATA: Female. status: : No status: NO. PATIENT RELEVANT IMPLANT DATA REVIEWED: Not Applicable RADIOLOGY DEPARTMENT: General X-ray: Exam(s) Completed: Lower Extremity X- Ray(s): Knee, AP / Lat / Tunne / Merchant Left PERIPHERAL IV DATA: Not applicable SIGNED BY: RT Jackeline(R) January 05, 2023 1:44 PM documented in this encounterKindred Healthcare10-05-2023 History of Present illness Narrative* Liliana Lim APRN.CNP - 12/31/2022 2:45 PM EDT She came in with initial complaints of [...] with this care plan. documented in this encounterKindred Healthcare09-20-2023 Instructions* Patient Instructions* Alea Waters MD - 12/16/2022 11:14 AM EDT [phone], option #0 Elisa Messina MD ( AM) documented in this encounterKindred Healthcare09-20-2023 History of Present illness Narrative* Alea Waters MD - 12/16/2022 10:40 AM EDT Images from the original note [...] s/p L salping oophorectomy 2014 (following w office services specialist onc at ) Hx seizures no, HTN yes, CAD/PAD/CVA/Angina no, Hx Pancreatitis no, Glaucoma no, Kidney stones yes,Personal or FHx thyroid Ca or MEN no no, s/p hysterectomy Relevant labs: HBA1C, Elizabeth 5.5 06/04/2020 Glucose 117 02/04/2022 Cholesterol, Total 223 02/04/2022 LDL Chol, [employer] [place] 105 06/04/2020 HDL Cholesterol 41 06/04/2020 Triglyceride [...] recommended she discusses cardiac rehab with her break out worker. Significant limitation regarding medications- will avoid wellbutrin [...] which included preparing to see the patient, [id number] patient care, completing clinical documentation, obtaining and/or reviewing separately obtained history, counseling and educating the patient/family/caregiver, ordering medications, damir ts, or procedures, and communicating results to the patient/family/caregiver. Alea Waters MD, MPH Endocrinology and Metabolism documented in this encounterKindred Healthcare09-20-2023 History of Present illness Narrative* Maribell La MD - 12/16/2022 8:30 AM EDT [facility] FEM[facility] PELVIC MEDICINE AND RECONSTRUCTIVE SURGERY HISTORY OF PRESENT ILLNESS: Kaya Arce is a 37 year old female hx of anal fissure, kidney stones, crohn's disease, HTN, IC, lupus, lyme disease, PCOS, ALVERTO referred here today by Dr Boyce for possible cystitis. 08/03/22 RAQUEL IMPRESSION: Question 3 mm nonobstructing left renal mid pole calculus. No hydronephrosis. Pre and postvoid bladder volumes as described. Incidental note made of a 3.3 cm simple appearing right ovarian cyst and of hepatic steatosis. HISTORIES: PAST MEDICAL HISTORY PAST MEDICAL HISTORY Diagnosis Date Abnormal glandular [...] disease Syncope Unspecified asthma(493.90) PAST SURGICAL HISTORY PAST SURGICAL HISTORY Procedure Laterality Date DELIVERY [...] BR/WA IF PFRMD Sigmoidoscopy, flexible FAMILY HISTORY FAMILY HISTORY Problem Relation Age of Onset [...] 90 other (down syndrome) Paternal Uncle SOCIAL HISTORY Social History Tobacco Use Smoking status: Never Smokeless tobacco: Never Vaping Use Vaping Use: Never used Substance Use Topics Alcohol use: Not Currently Drug use: No MEDICATIONS: Current Outpatient Medications Medication Sig loratadine (CLARITIN) 10 mg tablet Take 1 tablet by mouth every afternoon. sucralfate (CARAFATE) 100 mg/mL suspension 10 ML ORALLY 4 TIMES PER DAY 1 HOUR BEFORE MEALS AND AT BEDTIME ON AN EMPTY STOMACH phenazopyridine (PYRIDIUM) 200 mg tablet Take 1 tablet by mouth three times daily as needed for pain. famotidine (PEPCID) 40 mg tablet Take 1 tablet by mouth every afternoon. nystatin (MYCOSTATIN) powder APPLY TO AFFECTED AREA TWICE DAILY. tretinoin (RETIN-A) 0.05 % cream Apply pea-sized amount to entire face once nightly. Begin 3 times weekly and and gradually increase frequency to nightly as tolerated. hydrocortisone (HYTONE,CETACORT) 1 % lotion Apply to [...] No current facility-administered medications for this visit. CURRENT ALLERGIES: Allergies As of Date: 12/16/2022 Allergen Noted Reaction EUCALYPTUS 06/07/2007 Hives, Swelling, Anaphylaxis, Shortness of Breath, and Other: See Comments HYDROCODONE 12/06/2018 Itching KEFLEX [CEPHALEXIN] 05/09/2002 Hives and Anaphylaxis TAMSULOSIN 05/19/2021 Other: See Comments BEES 06/18/2010 Hives and Swelling CARDIZEM [DILTIAZEM HCL] 05/30/2018 Intolerance CIPROFLOXACIN 05/17/2019 Other: See Comments DOXYCYCLINE 09/26/2008 GI Upset HYDROXYCHLOROQUINE 11/14/2022 GI Upset LATEX 08/15/2008 Swelling TIZANIDINE 12/04/2010 Mental Status Change Fully Assessed 11/14/2022 N oshow documented in this encounterKindred Healthcare09-19-2023 NoteHNO ID: [id number] Author: Serjio Thompson MD Service: ? Author Type: Physician Type: Progress Notes Filed: 12/15/2022 4:15 PM Note Text: NEUROSURGERY TELEPHONE VISIT PROGRESS NOTE Serjio Thompson MD This is a telephone encounter [...] ORAL Take by mo (more content not included)...[facility]09-19-2023 History of Present illness Narrative* Serjio Thompson MD - 12/15/2022 4:06 PM EDT NEUROSURGERY TELEPHONE VISIT PROGRESS NOTE Serjio Thompson MD This is a telephone encounter [...] extremity pain. She tried physical therapy but wasunable to tolerate the exercises due to an elevated heart rate. She has not had an MRI of her neck or lumbar spine yet; I will order these today. Once these are complete I will follow-up with her anddiscuss the neck steps. Total Time Spent: 21-30 minutes Attestation: The following portions of the patient's history were reviewed, confirmed, and updated as necessary:allergies, current medications, past family history, past medical history, past social history, past surgical history, problem list, HPI, and ROS obtained by others. Some elements may be copied from a previous office note and have been reviewed/updated where appropriate. All portions reflect current medical decision making from today. The clinical and radiographic findings as well as the risks, benefits and alternatives of treatmenthave been reviewed in detail with the patient. Advised to call the office if symptoms worsen or new symptoms develop. Patient expressed understanding and is in agreement with plan. Serjio Thompson MD [facility] General Medical Decision Making: Problems: Moderate: 1+ chronic illnesses with change Data: Unique source(s) for external note(s) reviewed: 1 Unique test result(s) reviewed: 1 Unique test(s) ordered: 2 Risk: Moderate: Moderate risk from testing/treatment Medical Decision Making Level: 4 - Moderate documented in this encounterKindred Healthcare09-15-2023 Hospital Discharge instructions Patient Education 12/11/2022 17:12:23 AA Camilla MAC(CUSTOM) Suspected gastrocnemius/soleus muscle tear. Achilles tendon will need further evaluation. Follow Up Care 12/11/2022 15:34:37 With:ADARSH MCDERMOTT MD Address: [address] [place] [address] & [place] [address]- [phone] When:2-4 days With:Go to emergency room if symptoms worsen Address:Unknown When:2-[address] [facility] 09-15-2023 Note Discharge Instructions Thank you for allowing [facility] to assist you with your healthcare needs. The following is importantdischarge information regarding your hospital visit. Diagnosis from Today's Visit Lower leg pain-swelling Torn gastrocnemius What to Do Next Instructions from Your Care Team Ice bag to calf area. Elevation. Crutches to ambulate. No qualifying data available. Post Acute Orders No qualifying data available. You Need to Schedule the Following Appointments Follow Up with ADARSH MCDERMOTT MD When Within 2-4 days Where: [address] [place] [address] & [place] [address] [phone] Follow Up with Go to emergency room if symptoms worsen When Within 2-4 days Allergies Keflex Latex doxycycline tetracycline Medications Please ask your primary doctor or pharmacist before taking any other medication not listed, including over the counter drugs, herbal medications, vitamins and or supplements as they may interact withyour home medications. What How Much When Why Instructions Last Dose Changed acetaminophen-hydrocodone (Oceana 325- 5 mg oral tablet) 1 tab(s) by mouth Every 4 hours as needed for for pain Torn gastrocnemius Duration: 3 Days Printed Prescription Changed acetaminophen-HYDROcodone (Oceana 325- 5 mg oral tablet) 1 tab(s) [...] SEET a MIN oh fen and cheryle MACEDO done) Lortab Elixir, Verdrocet What is the [...] where to locate a drug take-back disposal program.If there is no take-back program, flush the unused medicine down the toilet. What happens if I miss a dose? Since this medicine is used for pain, you are not likely to miss a dose. Skip any missed dose if itis almost time for your next dose. Do [...] health department. Make sure any person caring foryou knows where you keep naloxone and how to use it. What should I avoid while taking acetaminophen and hydrocodone? Avoid driving or operating machinery until you know how this medicine will affect you. Dizziness ordrowsiness can cause falls, accidents, or severe injuries. [...] if you have slow breathing with long pauses,blue colored lips, or if you are hard to wake up. In rare cases, acetaminophen may cause a severe skin reaction that can be fatal. This could occur even if you have taken acetaminophen in the past and had no reaction. Stop taking this medicine and call your doctor right away if you have skin redness or a rash that spreads and causes blistering andpeeling. Call your doctor at once if you [...] may report side effects to FDA at [phone]. What other drugs will affect acetaminophen and [...] affect acetaminophen and hydrocodone, including prescription and cgls-kbw-cpnsxnd medicines, vitamins, and herbal products. Not all [...] to ensure that the information provided by [employer]. ('[employer]') is accurate, up-to-date, and complete, but no guarantee is made to that effect. Drug information contained herein may be time sensitive. [employer] information has been compiled for use by healthcare practitioners and consumers in the [place] and therefore [employer] does not warrant that uses outside of the [place] are appropriate, unless specifically indicated otherwise. [employer] drug information does not endorse drugs, diagnose patients or recommend therapy. [employer] drug information isan informational resource designed to assist licensed healthcare practitioners in caring for their p atients and/or to serve consumers viewing this service as a supplement to, and not a substitute for, the expertise, skill, knowledge and judgment of healthcare practitioners. The absence of a warningfor a given drug or drug combination in no way should be construed to indicate that the drug or drug combination is safe, effective or appropriate for any given patient. [employer] does not assume any responsibility for any aspect of healthcare administered with the aid of information [employer] provides. The information contained herein is not intended to cover all possible uses, directions, precautions, warnings, drug interactions, allergic reactions, or adverse effects. If you have questions about the drugs you are taking, check with your doctor, nurse or pharmacist. Copyright 5330-7682 [employer]. Version: 19.. Revision Date: 11/16/2022. Education Materials Suspected gastrocnemius/soleus muscle tear. Achilles tendon will need further evaluation. Additional Information VACCINATE! IT SAVES LIVES! Members of the community who have not yet received the COVID-19 vaccine and would like to receive it can visit one of [facility] vaccine clinics. There are many vaccine clinic locations within the [facility]. For locations and available times, please visit www.gettheshot.coronavirus.[place].gov/. It is important to note that some COVID mobile vaccine clinics are held outdoors and may be canceled in rainy or stormy conditions. To learn more about pediatric vaccinations (ages 5-11), we invite you to visit the [facility] webpage. https://www.[facility].org/pages/8476-Nwifn-Lfrvodqwdul-Wgzxzmqlje-Odtxt-Ssb stions.htmlTo learn more about the COVID-19 vaccine, we invite you to visit the CDC website for a list of frequently asked questions. https://www.cdc.gov/coronavirus/2019-ncov/vaccines/faq.html [facility] Patient Portal Access Instructions: Stay connected with your healthcare team and access your personal medical information anytime with the [facility] Patient Portal. If you would like a full copy of your medical records please contact the [facility] Medical Records Department Wednesday through Wednesday between 8a.m. and 4:30p.m. Please follow the directions below to access the portal: 1.Access the email account you provided upon registration to the [facility].2.Look for an invitation email from [facility].3.Open the email and access the invitation link: Accept Invitation to [facility]4.Fill in the required carias to create your account. Sign into [email or web address] with your username and password that you [...] you will allow to register on the [facility] Patient Portal for access to your information. You can also access the [facility] Patient Portal on the [employer]. Simply click on "Health Records" under "HealthData" and then click on the [facility] logo. HOW TO SAFELY DISPOSE OF PRESCRIPTION MEDICATIONS Please use one of the following methods to safely dispose of your unused medications. 1.Use a drug disposal kit: the drug disposal pouch allows you to safely discard your old and unuseddrugs. Ask your nurse to give you one when you are discharged.2.Visit a local take-back location: Many local pharmacies and police departments have programs that collect old and unwanted prescriptiondrugs. Call your local pharmacy or go to http://[employer].Telepath/6W3Hp7a to find one close to you.3.Make use of household items: Use cat litter or old coffee grounds to dispose medications if other options arenot available. Mix your drugs with these household products, seal them in an airtight container andthrow it into the garbage. Call [facility]: [phone] to be sure your drugs can be [...] drowsiness, such as benzodiazepines, also known as benzos,including diazepam and alprazolam, muscle relaxants or sleep aids. Never sell or share prescriptionopioids. This is illegal. Store opioids in a secure place and out of reach of others (including children, family, friends and visitors). The last page(s) of this document has been signed and retained as a CHART COPY Signatures Patient Education Materials AUGUSTA MAC(CUSTOM) Medication Leaflets acetaminophen and hydrocodone My discharge plan and instructions have been reviewed and explained to me and ICLAUDE ASHLEY O understand my current condition and have read and understand these discharge instructions. I have received a written copy of the plan/instructions. If I have questions, I am aware that I should contact my doctor. Patient/Director Of Grants Signature: Date/Time: Relationship to Patient: Witness Name/Signature: Date/Time: [facility]09-15-2023 Note ORIGINAL EXAMINATION: THREE XRAY VIEWS OF [...] Sign Date: 12/11/2022 4:28:40 PM Ordering Provider: [facility]09-15-2023 Note ORIGINAL EXAMINATION: THREE XRAY VIEWS OF [...] Sign Date: 12/11/2022 4:28:40 PM Ordering Provider: [facility]09-11-2023 Miscellaneous Notes* Telephone Encounter - Amber Taylor - 12/07/2022 9:23 AM EDT Patient scheduled for in person visit with Dr Thompson. Dr Thompson said to follow up virtually. I left a message for the patient asking to call me back if she would like to change appointment to virtual. documented in this encounterKindred Healthcare09-05-2023 Hospital Discharge instructions Patient Education 12/01/2022 16:15:14 Identifying Kidney Stones Identifying Kidney Stones Your kidneys filter your blood and release chemicals into the urine. If certain chemicals build up in the kidneys, they can form a stone. There are 4 general types of kidney stones. Your kidney stone s size and shape determine whether itis likely to pass by itself. Knowing what a stone is made of (its composition) helps your healthcare provider find its cause. Then he or she can suggest the best treatment. X-rays or scans can help show the stone's size and shape. Your healthcare provider may also give you a strainer. You can use th is to catch the stone while passing urine, [...] you may manage it with medicines. Certain proceduresmay also help, such as SWL (shock wave lithotripsy) or using a camera inside the body to remove thestone (ureteroscopy). And you will be told how you can help prevent kidney stones in the future. 0838-[address] [employer]. [address] [place] [address], [place] [address]. All rights reserved. This information is not intended as a substitute for professional medical care. Always follow yourhealthcare professional's instructions. 12/01/2022 16:15:10 How Your Kidneys [...] (such as calcium, sodium, potassium, and phosphorus) towork. Too little or too much of them can make you sick. In the kidneys, chemicals are taken from oradded to the blood to keep them in [...] conditions, immune disorders, injury, and certain medicines. 6780-[address] [employer]. [address] [place] [address]. All rights reserved. This information is not intended as a substitute for professional medical care. Always follow yourhealthcare professional's instructions. Follow Up Care 12/01/2022 13:54:25 With:RUDY BRANCH Address: [facility] [place] [address]- Business (1) When:2-4 days [facility] 09-05-2023 Note Discharge Instructions Thank you for allowing [facility] to assist you with your healthcare needs. The following is importantdischarge information regarding your hospital visit. Diagnosis from Today's Visit Bilateral nephrolithiasis Flank pain What to Do Next Instructions from Your Care Team No qualifying data available. Post Acute Orders No qualifying data available. You Need to Schedule the Following Appointments Follow Up with RUDY BRANCH When Within 2-4 days Where: [place] [address]- Business (1) Allergies Keflex Latex doxycycline tetracycline Medications Please ask your primary doctor or pharmacist before taking any other medication not listed, including over the counter drugs, herbal medications, vitamins and or supplements as they may interact withyour home medications. What How Much When Instructions Last Dose Unchanged acetaminophen-HYDROcodone (Oceana 325- 5 mg oraltablet) 1 tab(s) by mouth Every 6 hours [...] stone s size and shape determine whether itis likely to pass by itself. Knowing what a stone is made of (its composition) helps your healthcare provider find its cause. Then he or she can suggest the best treatment. X-rays or scans can help show the stone's size and shape. Your healthcare provider may also give you a strainer. You can use th is to catch the stone while passing urine, [...] you may manage it with medicines. Certain proceduresmay also help, such as SWL (shock wave lithotripsy) or using a camera inside the body to remove thestone (ureteroscopy). And you will be told how you can help prevent kidney stones in the future. 5161-[address] [employer]. [address] [place] [address]. All rights reserved. This information is not intended as a substitute for professional medical care. Always follow yourhealthcare professional's instructions. How Your Kidneys Work The [...] (such as calcium, sodium, potassium, and phosphorus) towork. Too little or too much of them can make you sick. In the kidneys, chemicals are taken from oradded to the blood to keep them in [...] conditions, immune disorders, injury, and certain medicines. 2229-[address] [employer]. [address] [place] [address]. All rights reserved. This information is not intended as a substitute for professional medical care. Always follow yourhealthcare professional's instructions. Additional Information VACCINATE! IT SAVES LIVES! Members of the community who have not yet received the COVID-19 vaccine and would like to receive it can visit one of [facility] vaccine clinics. There are many vaccine clinic locations within the [facility]. For locations and available times, please visit www.gettheshot.coronavirus.[place].gov/. It is important to note that some COVID mobile vaccine clinics are held outdoors and may be canceled in rainy or stormy conditions. To learn more about pediatric vaccinations (ages 5-11), we invite you to visit the [facility] webpage. https://www.[facility].org/pages/4938-Hjnsx-Prbrrktjbrq-Ygxxeugggc-Fqxuw-Cup stions.htmlTo learn more about the COVID-19 vaccine, we invite you to visit the CDC website for a list of frequently asked questions. https://www.cdc.gov/coronavirus/2019-ncov/vaccines/faq.html [facility] Patient Portal Access Instructions: Stay connected with your healthcare team and access your personal medical information anytime with the [facility] Patient Portal. If you would like a full copy of your medical records please contact the [facility] Records Department Wednesday through Wednesday between 8a.m. and 4:30p.m. Please follow the directions below to access the portal: 1.Access the email account you provided upon registration to the [facility].2.Look for an invitation email from [facility].3.Open the email and access the invitation link: Accept Invitation to [facility]4.Fill in the required carias to create your account. Sign into [email or web address] with your username and password that you [...] you will allow to register on the [facility] Patient Portal for access to your information. You can also access the [facility] Patient Portal on the [employer]. Simply click on "Health Records" under "HealthData" and then click on the [facility] logo. HOW TO SAFELY DISPOSE OF PRESCRIPTION MEDICATIONS Please use one of the following methods to safely dispose of your unused medications. 1.Use a drug disposal kit: the drug disposal pouch allows you to safely discard your old and unuseddrugs. Ask your nurse to give you one when you are discharged.2.Visit a local take-back location: Many local pharmacies and police departments have programs that collect old and unwanted prescriptiondrugs. Call your local pharmacy or go to http://[employer].Telepath/2K8Qq9n to find one close to you.3.Make use of household items: Use cat litter or old coffee grounds to dispose medications if other options arenot available. Mix your drugs with these household products, seal them in an airtight container andthrow it into the garbage. Call [facility]: [phone] to be sure your drugs can be [...] drowsiness, such as benzodiazepines, also known as benzos,including diazepam and alprazolam, muscle relaxants or sleep aids. Never sell or share prescriptionopioids. This is illegal. Store opioids in a [...] aware that I should contact my doctor. Patient/Director Of Grants Signature: Date/Time: Relationship to Patient: Witness Name/Signature: Date/Time: [facility]09-05-2023 Note ORIGINAL EXAMINATION: CT OF THE ABDOMEN [...] symmetric in size without hydronephrosis. 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 Interpreted by: Harley Mitchell MD Preliminary Report By: Gatito Rosario Electronically signed By Harley Mitchell MD Dictated Date: 12/01/2022 3:25:13 PM Prelim Date: 12/01/2022 3:53:51 PM Sign Date: 12/01/2022 3:53:51 PM Ordering Provider: [facility]09-05-2023 Telephone encounter Note* Telephone Encounter - Home Fraire - 12/01/2022 2:52 PM EDT Patient has not returned calls to r/s surgery. [id number] Miscellaneous Notes* Telephone Encounter - Home Fraire - 12/01/2022 2:52 PM EDT Patient has not returned calls to r/s surgery. * Telephone Encounter - Home Fraire - 08/12/2022 12:05 PM EDT Left voicemail for patient to call office if she would still like to schedule surgery. Rafal vs lap RO omentectomy documented in this [facility]08-19-2023 Instructions* Patient Instructions* Adriane Rodriguez APRN.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 - 11/14/2022 3:30 PM EDT Images from [...] It means your child is under pressure. Thesymptom is involuntary, not deliberate. The urinary frequency may begin within 1 or 2 days of a stressful event or change in the child's routine. You can make the problem worse by worrying about disease. Punishment, criticism, or teasing also worsens the symptom. Although physical causes are rare, your child should be examined by a healthcare provider. The onlytest that is usually needed is a check [...] problems with bedwetting may have this symptom morethan once. How can I help my child? [...] is over 8 years old. Increasing the nicholas ppiness and harmony within your home will usually [...] Stop all family conversation about the frequency. Theless said about it, the less anxious your [...] have other questions or concerns. Published by [employer]. This content is reviewed periodically and is subject to change as new health information becomes available. The information is intended to inform and educate and is not a replacement for medical evaluation, advice, diagnosis or treatment by a healthcare professional. Written by Cameron Mcwilliams M.D., author of "Your Child's Health," [employer]. Copyright 2007 [employer] and/or one of its subsidiaries. All Rights Reserved. Copyright [employer] 2008 Pediatric Advisor documented in this encounterKindred Healthcare08-19-2023 History of Present illness Narrative* Adriane Rodriguez APRN.CNP - 11/14/2022 3:05 PM EDT Kaya Arce is a 37 year old [...] Behavior: Behavior normal. URINALYSIS, DIPSTICK ONLY Order: [id number] Status: Final result Visible to patient: Yes [...] Negative NEGATIVE R Negative neg R Specific [place], Ur 1.005 - 1.030 1.010 1.007 1.014 [...] for baclofen muscle relaxant , outpatient treatment andsupportive measures at this time. Go to the ED if symptoms change or worsen. Otherwise follow-up with PCP in 5 to 7 days. 3. Urinary urgency - ICD9: 788.63, ICD10: R39.15 - SULFAMETHOXAZOLE 800 MG-TRIMETHOPRIM 160 MG TABLET - pyridium 200 mg x 3 days History, examination, and urine dipstick result are consistent with urinary frequency and urgency ,possible UTI without evidence of pyelonephritis, kidney stones or sepsis. Patient will be given Bactrim antibiotic therapy and cultures pending. Return to clinic or present to ED if symptoms change or worsen. Otherwise follow with PCP in 5-7 days for recheck. Adriane Rodriguez APRN.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 documented in this encounterKindred Healthcare08-17-2023 Miscellaneous Notes* Telephone Encounter - Shilo Merida RN - 11/12/2022 11:33 AM EDT Pt care plan reviewed. Faxed to [facility]. Scanned into [employer]. Shilo Merida RN documented in this encounterKindred Healthcare07-25-2023 NoteHNO ID: [id number] Author: Serjio Thompson MD Service: ? Author Type: Physician Type: Progress Notes Filed: 10/20/2022 11:53 AM Note Text: NEUROSURGERY CONSULT NOTE Serjio Thompson MD Neurosurgery [facility] Date of visit: October 20, 2022 Patient Name: Ms.Ashley Alexandro Arce Date of : 1985 Current Age: [age] year old Sex: female MRN/E# [id number] Last Office Visit: Visit date not found [...] close airway Latex Swell (more content not included)...[facility]07-05-2023 Miscellaneous Notes* Telephone Encounter - Jayde Nye - 09/30/2022 9:18 AM EDT Left VM for patient to call office to update registration and go over records needed for review prior to scheduling. * Telephone Encounter - Jayde Nye - 09/30/2022 9:18 AM EDT ----- Message from Goyo Alfonso sent at 09/25/2022 4:37 PM EDT ----- Regarding: Gastroparesis Initial No patient name on file. is being referred to or the Gastroparesis clinic. Referring Physician: Has the patient had a Gastric Emptying Study? Yes Which facility or hospital was the Gastric Emptying Study done at (please list full name of hospital or facility)? [facility] 2019 If the patient had a gastric [...] G/J Tube?No Preferred phone number for contact: [phone] Send to GASTROPARESIS SCHEDULING POOL [[id number]] documented in this encounterKindred Healthcare06-19-2023 Miscellaneous Notes* Telephone Encounter - Danay Amor - 09/14/2022 8:47 AM EDT Last distance health visit with Dr. Travis Martinez MD 05/19/2022. MICHELLE with Lilia Laurent MS, WILFREDO 09/11/2022. documented in this encounterKindred Healthcare06-16-2023 History of Present illness Narrative* Lilia Laurent PA-C - 09/11/2022 11:45 AM EDT EST PATIENT Chief Complaint: Patient presents with: Derm Problem: HS HPI: Kaya Arce is a 37 year old female who presents today for: Patient presents with: Derm Problem: HS #1 HS Location: labia (worst), buttocks, behind ears, face, between/below breasts Duration: couple years Symptoms: swelling, painful and itchy Current Treatment: spironolactone 50 mg daily (taking every other day due to frequent urination andkidney stones), topical clindamycin, ketoconazole, hydrocortisone, warm soaks [...] for ILK as needed - may send [employer] message to schedule with me Patient does not tolerated antibiotics due to GI side effects Patient does not tolerate spironolactone due to frequent urination/bladder irritation/ kidney stones Humira is contraindicated due to ovarian cancer diagnosis May discuss alternate options with Dr. Martinez Acne excoriee Encourage to stop picking/picking due to increase scarring Samples provided of face wash with 4% BPO and oil-free moisturizer Follow up as noted in plan or as needed. Intake: Argelia Mantilla MA I have reviewed and agree with the Chief Complaint, patient-reported HPI, ROS, and Past Histories independently gathered by the clinical account support rep and the remaining scribed note accurately describes my personal service to the patient. Lilia Laurent MS, PAEmaC documented in this encounterKindred Healthcare06-15-2023 Miscellaneous Notes* Telephone Encounter - Ricardo Nino MA - 09/10/2022 10:21 AM EDT 2ND ATTEMPT Called the patient in regards to their upcoming virtual appointment on 09/11 at 1:20pm. Reminded thepatient that their appointment is on 09/11 at 1:20pm, and to check in 10-15 minutes before their appointment time. Also stated to review their allergies and medication list on [employer] prior to their appointment to make sure they are up to date. Reminded the patient that I sent a [employer] message with an attachment that instructs her on how to upload her most recent 7-14 day blood sugar readings. The patient stated that she does not use anything to monitor her blood sugar. Ricardo Nino MA documented in this encounterKindred Healthcare06-07-2023 Miscellaneous Notes* Telephone Encounter - Ricardo Nino MA - 09/02/2022 12:42 PM EDT Called the patient in regards to their upcoming virtual appointment on 09/11 at 1:20pm. The patient did not answer. I left the patient a voicemail stating their appointment is on 09/11 at 1:20pm, and to check in 10-15 minutes before their appointment time. Also stated to review their allergies and medication list on [employer] prior to their appointment to make sure they are correct. Also, I sent the patient a [employer] message with an attachment that instructs them on how to upload their most recent 7-14 days blood sugar readings. Ricardo Nino MA documented in this encounterKindred Healthcare05-17-2023 Telephone encounter Note * Telephone Encounter - Home Fraire - 08/12/2022 12:05 PM EDT Left voicemail for patient to call office if she would still like to schedule surgery. Rafal [id number] History of Present illness Narrative* Tamika Traylor RDMS - 07/30/2022 3:15 PM EDT Radiology Service Progress Note PATIENT NAME: Kaya Arce DATE OF SERVICE: July 30, 2022 TIME: 3:26 PM PATIENT IDENTITY VERIFICATION COMPLETED USING TWO (2) IDENTIFIERS: Name and Date of confirmedby patient verbally. FALL SCREENING: Has the patient [...] 30, 2022 3:26 PM documented in this encounterKindred Healthcare02-23-2023 History of Present illness Narrative* Belén Coffey - 05/21/2022 9:23 AM EST Left Pt a VM to schedule follow up in July VV or in person with Dr Martinez. Thanks * Travis Martinez MD - 05/19/2022 11:37 AM EST Images from the original note were not included. Department of Dermatology Travis Martinez MD 05/19/2022 VIRTUAL VISIT PROGRESS NOTE This [...] to proceed with the visit. Technology platform: Phantom Last visit in Dermatology: 12/31/2021 Assessment (L70.9) [...] papules notedon the inferior face. Attending signature: Travis Martinez MD This note is completed at 3:55 PM on 05/31/2022 and reflects the services provided at the time of theappointment. I agree with the Chief Complaint, ROS, and Past Histories independently gathered by the clinical account support rep. documented in this encounterKindred Healthcare02-21-2023 Nurse Note* Rossy Thomas - 05/19/2022 11:30 AM EST Spoke to Kaya Arce, confirmed patient is registered on [employer] and is prepared for their appointment. Confirmed the patient has updated medications, allergies, and questionnaires via [employer]. Informed patient if there is an issue with the connection, provider will send the patient a secure link. If provider is running late, patient should remain connected to the visit. Patient verbalized understanding. documented in this encounterKindred Healthcare02-08-2023 Telephone encounter Note * Telephone Encounter - Wilmar Davis MD - 05/06/2022 3:23 PM EST Pt called discussed CT scan. Recommned RO Tag & See Phone: [phone] Miscellaneous Notes* Telephone Encounter - Wilmar Davis MD - 05/06/2022 3:23 PM EST Pt called discussed CT scan. Recommned RO documented in this [facility]02-06-2023 History of Present illness Narrative* Wilmar Davis MD - 05/04/2022 2:30 PM EST CC: Abnormal uterine bleeding endometriosis pelvic adhesive disease severe pelvic pain HPI: Kaya Arce is a pleasant 36 y.o. female who presents in consultation from Dr. Meehan for further evaluation and management of pelvic pain, abnormal uterine bleeding and endometriosis. She initially presented with intermittent pelvic pain which happens most days. She states the pain sig nificantly interferes with her quality of life. The pain is mostly in her pelvis, does not radiate.Is not associated with changes in bowel or bladder habits. She does have a history of Crohn's disease diagnosed on colonoscopy has occasional diarrhea but has never had any bowel surgery from her Crohn's disease. She has had no change in her symptoms on progesterone. She has tried other hormonal therapy but due to her postural hypotension is unable to tolerate it. Nonsteroidal anti-inflammatory agents provide mild relief. She has a persistent 3 cm mildly complex ovarian cyst. She does have a history of endometriosis and scar tissue seen on previous laparoscopic oophorectomy. She has also had some intermittently heavy vaginal bleeding Was scheduled for hysterectomy in the [facility] but that got canceled due to the physician leaving. States that her last couple Paps have been negative but it is difficult to do Pap smears dueto the anteversion of her uterus per the patient First 3 days of menses are so sever that she will bleed heavy, feels weak. She states the blood will come out making her change her pad and tampon every hour for about [address] Review of a [address] scan report from January 2019 shows no evidence of pelvic pathology. CT scan June 2020 report has been reviewed. Left ovary appears to be missing. Indication Abnormal uterine bleeding Impression Normal appearing [...] free fluid visualized in the peritoneal cavity. Hx of LSO several years ago. One year ago had lap casey and pelvic PEDRO. Was told after that surgerythat she would require hysterectomy and RSO due to the severe pelvic disease. Her surgery did help for a month or 2 but has been progressively getting worse over the last 10 months. She is here todayto discuss hysterectomy with RSO. She denies any history of DVT SD or pulmonary embolism Had colonoscopy about a year ago, was normal. Interval history; Conintued abd pain. The patient states that her pain is persistent, she is requesting hysterectomy with RSO as a definitive cure for her pain. She is here today to discuss surgery. Patient was seen at the [facility]. An MRI was performed. MRI 07/2021 IMPRESSION: Findings of infiltrative endometriosis involving the [...] fibrothecoma. No endometrioma. Adenomyosis. Right sided hydrosalpinx. Had recent USD and USD at [employer]. These reports have personally been reviewed and does show a persistent right adnexal mass from 3 to 5 cm in size. No adenopathy or ascites is seen. Regular menses about every 40 days Patient was scheduled for hysterectomy with RSO but canceled the surgery in November. Updated history; Patient underwent laparoscopic hysterectomy with right ovarian cystectomy.Feb 10 The pathology report reveals: A. Peritoneum, bowel lesion, biopsy - Clusters of low-grade serous epithelial cells (see comment) B. Fallopian tube, right, salpingectomy - Fimbriated fallopian tube with no significant abnormality C. Uterus and cervix, total laparoscopic hysterectomy - Cervix: No significant abnormality - Endometrium: Proliferative endometrium - Myometrium: Leiomyoma, 1 cm - Serosa: Serosal adhesions D. Ovary, right, cystectomy - Follicular cyst Patient underwent CT scan of the abdomen pelvis in February 2022. Pelvis: Prominent RIGHT ovary measuring 3.9 x 3.3 x 2.8 cm with a 1.7 cm corpus luteum cyst. There is apparent loss of the fat plane between the ovary and the sigmoid colon, which is nonspecific given the history of surgery. There is no direct invasion. Hysterectomy and LEFT oophorectomy. No ascites, mass, or fluid collection. Unremarkable urinary bladder. CT scan Apr 25 in ED shows possible resolving cyst. Still having RLQ pain. Desires removal right ovary Feels like inside of pelvic is "pinched" increases with activity, sometimes wakes her up in her sleep. She states the pain is quite severe, has gotten worse since having surgery. She is also concerned about the finding of a low-grade serous tumor on the peritoneum. The patient is here today requestingremoval of the right ovary as well as further inspection of the abdomen to see if there is any further tumor in the abdominal cavity. 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 Crohn's colitis (CMS/HCC) (HCC) Dysautonomia (CMS/HCC) (HCC) Endometriosis GERD (gastroesophageal reflux disease) Gross hematuria 04/11/2019 High blood pressure Hyperlipidemia Kidney stones MDRO (multiple drug resistant organisms) resistance 2011 c diff Mitral regurgitation PCOS (polycystic ovarian syndrome) Psoriasis Tachy-ruthann syndrome (CMS/HCC) (HCC) Past Surgical History: Procedure Laterality Date SECTION (HISTORICAL) 2003 CHOLECYSTECTOMY COLONOSCOPY 1987 x's 3 HEMORRHOID SURGERY 02/15/2019 Colonoscopy, rectal exam under anesthesia, external hemorrhoidectomy HERNIA REPAIR 1984 double inguinal OOPHORECTOMY Left 2015 tube/ovary Social History Socioeconomic History Marital status: Single Tobacco Use Smoking status: Never Smokeless tobacco: Never Substance and Sexual Activity Alcohol use: Not Currently Drug use: Not Currently Current Outpatient Medications Medication Sig Dispense Refill EPINEPHrine (Epipen) 0.3 MG/0.3ML injection syringe Inject 0.3 mg into the shoulder, thigh, or buttocks. atenolol (Tenormin) 25 MG tablet pantoprazole (ProtoNix) 40 MG EC tablet Take 40 mg by mouth in the morning. No current facility-administered medications for this visit. Review of Systems Genitourinary: Positive for pelvic pain. Cephalexin, Eucalyptus oil, and Latex BP 116/78 Pulse 70 Ht 1.575 m (5' 2") Wt 83 kg (183 lb) BMI 33.47 kg/m Physical Exam Vitals and nursing note reviewed. Constitutional: Appearance: Normal appearance. Cardiovascular: Rate and Rhythm: Normal rate and regular rhythm. Pulmonary: Effort: Pulmonary effort is normal. Breath sounds: Normal breath sounds. Abdominal: General: Abdomen is flat. Palpations: Abdomen is soft. Skin: General: Skin is warm and dry. Neurological: Mental Status: She is alert. Psychiatric: Mood and Affect: Mood normal. Behavior: Behavior normal. Review of multiple medical records from the [facility] to include operative notes pathology reports tumor board notes. 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 Plan: Total visit time of 35 minutes which included review of multiple records from the [facility].Also in [id number] discussion with the patient concerning treatment options. The patient is requesting removal of the right ovary to reresolve her chronic right lower quadrant pain that was presentbefore surgery and is still there. She had wanted the right ovary removed at the time of the [facility] but it was left in against her wishes. The patient understands that if the surgery shows no evidence of low-grade serous tumor we will still recommend long-term observation with CA125 level. We discussed that if the repeat surgery would show evidence of persistent low-grade serous tumor she would be a candidate for an aromatase inhibitor. I did discuss the risk of major abdominal surgery to include bleeding infection damage to other organs as well as potentially not curing her chronicright lower quadrant pain. documented in this [facility]01-28-[address] Lou [facility] April 25, 2022 5:51pm Note Date/Time April 25, 2022 3 :58pm [facility] Medical Records Department [address] [place] [address] Emergency Department Summary 04/25/22 MR#: [id number] Acct: [id number] Name: KAYA ARCE Rep #:[id number] : 1985 36 From: Lazarus Lou MD PCP: Dr. Rudy Branch, Status:REG ER Location: ED HPI History of Present Illness Chief Complaint: Nausea/Vomiting Detail of Chief Complaint: malaise, fevers Informant: patient Onset/Context/Timing Onset: Weeks (1.5) Context: Gradual Onset Timing: Continuous Quality: tired Location: all over Current Severity: Severe Maximum Severity: Severe Worsened by: nothing Relieved by: nothing Narrative Narrative: Patient states for the past week and a half she has not felt well. She has beenvery tired/fatigued, had fevers off and on, she has had a runny nose in the lastseveral days but no cough or shortness of breath or chest discomfort. Headaches, vertigo when she turns her head at times, which also causes nausea but she has been very nauseated without having vertigo as well, along with some bilateral mid abdominal pain that is off and on. Some minor vomiting but not much. No diarrhea. She had a hysterectomy 10 weeks ago, states she has had difficulty urinating ever since but that is not different or new since the feverstarted 1.5 weeks ago. She does have some lower abdominal pain that has been there for the past couple months since her surgery, she feels like she is generally worsening but the pain has not necessarily been. 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 She had a prior left salpingo-oophorectomy and cholecystectomy. Patient also states her left jaw has been hurting, she states she had an incomplete root canal of tooth #15 October of last year. She denies any purulentdischarge but states she has had some altered taste recently. She denies any facial swelling. She states the tooth that was worked on is not hurting her butshe has jaw pain in that area. [facility] Medical History Acid reflux Acute maxillary sinusitis, unspecified Anal fissure Anemia Ankylosing spondylitis Anxiety Arthritis Asthma Back pain Diarrhea Diverticulosis Ectopic cardiac beats Edema Endometriosis Exercise-induced asthma Fatigue h/o lesion removal Hematochezia Hemorrhoids Hepatic steatosis History of back problems History of fatty infiltration of liver History of Lyme disease History of steroid therapy Hypertension Irregular heart beat Kidney disease Kidney stones Leg cramps lysis of adensions (~09/2019) Medullary sponge kidney of both kidneys Migraine headache Mitral regurgitation Non-smoker Ovarian cyst PCOS (polycystic ovarian syndrome) POTS (postural orthostatic tachycardia syndrome) Prolapse of intestine Rash Reflux involving intestinal tract Restless legs Sinus tachycardia Sinus tachycardia Sleep apnea Symptomatic bradycardia Symptomatic bradycardia Syncope Tachycardia Wears glasses Home Medications multivitamin 1 tab PO DAILY 12/13/17 [History Last Taken 09/17/18] albuterol sulfate 90 mcg/actuation aerosol inhaler 1 - 2 puff inhalation Q6H PRNPRN Asthma 10/19/19 [History Last Taken Unknown] atenolol 25 mg tablet 25 mg PO DAILY 07/08/20 [History Last Taken Unknown] potassium chloride 20 mEq tablet,extended release 20 meq PO DAILY 08/06/20 [History Last Taken Unknown] baclofen 10 mg tablet 10 mg PO BID PRN muscle pain #60 tabs 02/10/21 [Rx Last Taken Unknown] ketoconazole 2 % topical cream 1 applic topical BID 3 weeks #30 grams 02/12/21 [Rx Last Taken Unknown] ondansetron 4 mg disintegrating tablet 4 mg PO Q8H PRN nausea and vomiting #90 tabs 04/18/21 [Rx Last Taken Unknown] pantoprazole 40 mg tablet,delayed release 40 mg PO DAILY gerd 05/19/21 [History Last Taken Unknown] cetirizine 10 mg tablet (Zyrtec) 10 mg PO DAILY PRN allergies 11/10/21 [History Last Taken Unknown] mesalamine 4 gram/60 mL enema 4 g (60 mL) [place] QHS #1,680 mL 12/15/21 [Rx Last Taken Unknown] sucralfate 100 mg/mL oral suspension 10 ml PO QACHS #1,000 mL 12/15/21 [Rx Last Taken Unknown] meclizine 25 mg tablet 25 mg PO Q8H PRN PRN Dizziness #20 tabs 04/25/22 [Rx Last Taken Unknown] promethazine 25 mg tablet 25 mg PO Q6H PRN PRN Nausea #10 TABLETS 04/25/22 [Rx Last Taken Unknown] Allergy/AdvReac Type Severity Reaction Status Date / Time acetaminophen [From Vicodin] Allergy Severe Itching Verified 04/25/22 15:44 cephalexin monohydrate Allergy Severe Anaphylaxis Verified 04/25/22 15:44 [From Keflex] cyclobenzaprine Allergy Severe Mental Verified 04/25/22 15:44 [From Flexeril] status change hydrocodone [From Vicodin] Allergy Severe Itching Verified 04/25/22 15:44 latex Allergy Mild Swelling Verified 04/25/22 15:44 eucalyptus AdvReac Severe tachycardia, Verified 04/25/22 15:44 close airway NSAIDS (Non-Steroidal AdvReac Severe GI upset Verified 04/25/22 15:44 Anti-Inflamma tamsulosin [From Flomax] AdvReac Severe Low BP/HR Verified 04/25/22 15:44 tizanidine AdvReac Severe Low HR Verified 04/25/22 15:44 ciprofloxacin [From Cipro] AdvReac diarrhea, Verified 04/25/22 15:44 nausea, tachycardia doxycycline AdvReac Diarrhea Verified 04/25/22 15:44 Family History Mother Heart disease Hypertension Father Heart disease Diabetes Hypertension Surgical History H/O cystoscopy (~09/2019) H/O dilation and curettage (~09/2019) History of History of cholecystectomy History of hernia repair Hx laparoscopic cholecystectomy (~09/2019) Hx of removal of ovary Social History Smoking Status: Never smoker Electronic Cigarette Use: not used second hand exposure: No alcohol intake: never substance use type: does not use caffeine: No what type of physical activity do you participate in: walking frequency: 5-6 times per week seatbelt use: always do you feel safe at home: Yes additional social history: Single- Currently unemployed ROS ROS ED Constitutional Constitutional ED: Reports anorexia, body ache(s), chills, fatigue, fever(s), headache(s) and malaise Eyes Eyes: Denies blurry vision, change in vision or diplopia ENT ENT ED: Reports as per HPI, facial pain, rhinorrhea, sinus pain and vertigo; Denies dental pain, ear pain, epistaxis, lip swelling, loss taste/smell, mouth pain or sore throat Cardiovascular Cardiovascular: Denies chest pain or palpitations Respiratory/Chest Respiratory/Chest: Denies cough or dyspnea Gastrointestinal Gastrointestinal: Reports abdominal pain, nausea and vomiting; Denies diarrhea Genitourinary Genitourinary ED: Reports other Details: "Initially painful and trouble urinating since my hysterectomy 10 weeks ago." No other new urinary symptoms. ; Denies dysuria or hematuria Musculoskeletal Musculoskeletal: Denies back pain or neck pain Integumentary Denies abscess or rash Neurologic Neurologic: Reports headache(s); Denies paresthesias or weakness Psychiatric Psychiatric: Denies anxiety or suicidal thoughts EXAM Physical Exam Const Vital Signs: 04/25/22 15:24 04/25/22 16:15 04/25/22 16:15 Temperature 99.0 F 98.8 F 98.8 F Temperature Source Temporal Oral Oral Pulse Rate 97 86 83 Respiratory Rate 15 18 18 Blood Pressure 125/83 H 122/66 H 122/66 H Blood Pressure Mean 97 84 84 Pulse Ox 98 96 97 Oxygen Delivery Method Room Air Room Air Room Air Positive well nourished and well developed Constitutional Narrative: Appears malaised but no distress General Appearance ED: well developed and NAD HEENT Reports TM's clear and moist mucous membranes HEENT Narrative: Mild ethmoid sinus tenderness. No other sinus abnormality or purulent nasal discharge or turbinate edema. No trismus. No dental tenderness. Normal inspection of the dentition and gingiva and buccal mucosa throughout, including the left maxillary. No abscesses or palpable tenderness. Tongue normal no elevation. Throat normal, no asymmetry, exudates, erythema. normocephalic and atraumatic Tympanic Membrane ED: Yes TM's clear Eyes PERRL and EOMs intact bilaterally Neck full ROM, no lymphadenopathy and supple Neck Narrative: No meningismus, forage motion. Chest Wall inspection of chest normal and palpation of chest normal Resp normal respiratory effort and clear to auscultation bilaterally Cardio regular rate, regular rhythm and no murmurs Rate: Negative for tachycardic GI non-distended GI Narrative: Mildly obese abdomen. Insert upper quadrant no guarding or rebound. Otherwise benign abdomen. Auscultation: normoactive bowel sounds Palpation: soft Back/Spine no CVA tenderness General Back: other FROM without discomfort. Extremity normal to inspection General Extremety ED: Negative for edema, pulses abnormal or tenderness General Extremity: Negative for edema or pulses abnormal Neuro oriented x3, CN's II-XII intact bilaterally and no sensory deficits noted Sensorium / Orientation: awake and alert Motor Exam: strength 5/5 throughout Psych mental status grossly normal Skin no rashes or lesions noted and no wounds MDM MDM MDM Narrative Medical decision making narrative: This patient has a lot of symptoms in addition to having fevers and not feeling well. Her vital signs are normal here and she is afebrile. Differential here is wide. She states she saw her doctor and had negative COVID and influenza test as an outpatient at the beginning of this, I repeated her COVID swab and itis negative again. Also in the differential is sinus and/or sphenoid infection,general viral syndrome, mononucleosis, less likely pneumonia since she has no cough, urine infection with urosepsis, intra-abdominal postoperative complication/infection, cancer-related phenomena/complications. The work-up is sickly shows a mild nonspecific leukocytosis, and everything elseis negative including a monotest, COVID swab, chest x-ray 2 views of my interpretation, and urinalysis. Given all of this, as well as the vertiginous symptoms in context of a CT showing no evidence of facial or sphenoid sinusitis,is that this is all viral in etiology. My interpretation of the CTs of head, abdomen/pelvis agrees with that of the radiologist. She is not examining like meningitis. She does not have any clinical suspicion/appearance of vasculitis. We do have a respiratory viral panel. Patient is interested in it so I will send that but still discharge the patient home to follow-up, supportive care advised along with prescriptions for promethazine and meclizine to use as neededfor those symptoms. She was given some fluids here as well as Zofran/Toradol and felt a little better. Lab Data Attestation: I reviewed the patient's lab results. Labs: Laboratory Results - last 24 hr 04/25/22 04/25/22 04/25/22 16:00 16:00 16:00 WBC 13.2 H RBC 4.83 Hgb 12.8 Hct 40.9 MCV 84.7 MCH 26.5 L MCHC 31.3 L RDW Std Deviation 41.1 RDW Coeff of Karon 13.3 Plt Count 313 MPV 9.1 Immature Gran % (Auto) 0.400 Neut % (Auto) 70.8 H Lymph % (Auto) 22.4 Gentry % (Auto) 4.8 Eos % (Auto) 1.4 Baso % (Auto) 0.2 Absolute Neuts (auto) 9.4 H Absolute Lymphs (auto) 2.96 Nucleated RBC % 0 Sodium 141 Potassium 3.5 Chloride 103 Carbon Dioxide 30.0 Anion Gap 8 BUN 12 Creatinine 0.79 Estim Creat Clear Calc 79.87 Est GFR (MDRD) Af Amer 104 Est GFR (MDRD) Non-Af 86 BUN/Creatinine Ratio 15.1 Glucose 136 H Calcium 9.2 Total Bilirubin 0.30 AST 13 L ALT 19 Alkaline Phosphatase 78 Total Protein 7.6 Albumin 3.5 Globulin 4.1 Albumin/Globulin Ratio 0.9 Urine Color Urine Clarity Urine pH Ur Specific Flint Urine Protein Urine Glucose (UA) Urine Ketones Urine Occult Blood Urine Nitrite Urine Bilirubin Urine Urobilinogen Ur Leukocyte Esterase Urine RBC Urine WBC Ur Squamous Epith Cells Urine Bacteria Urine Mucus Monoscreen Negative 04/25/22 16:05 WBC RBC Hgb Hct MCV MCH MCHC RDW Std Deviation RDW Coeff of Karon Plt Count MPV Immature Gran % (Auto) Neut % (Auto) Lymph % (Auto) Gentry % (Auto) Eos % (Auto) Baso % (Auto) Absolute Neuts (auto) Absolute Lymphs (auto) Nucleated RBC % Sodium Potassium Chloride Carbon Dioxide Anion Gap BUN Creatinine Estim Creat Clear Calc Est GFR (MDRD) Af Amer Est GFR (MDRD) Non-Af BUN/Creatinine Ratio Glucose Calcium Total Bilirubin AST ALT Alkaline Phosphatase Total Protein Albumin Globulin Albumin/Globulin Ratio Urine Color Yellow Urine Clarity Clear Urine pH 7.0 Ur Specific Flint 1.015 Urine Protein Negative Urine Glucose (UA) Normal Urine Ketones Negative Urine Occult Blood 10 H Urine Nitrite Negative Urine Bilirubin Negative Urine Urobilinogen Normal Ur Leukocyte Esterase Negative Urine RBC 0 SEEN Urine WBC 0 SEEN Ur Squamous Epith Cells 25-50 SEEN Urine Bacteria 0 SEEN Urine Mucus 0 SEEN Monoscreen Radiography Diagnostic Testing: Clinical Impression(s) from Imaging Studies Brain CT 04/25/22 15:44 IMPRESSION: Normal unenhanced CT scan of the brain. No interval change. Electronically Signed: Juan Antonio Garduno DO at 17:02 EST Reading Location ID and State: [address] [place] [address] Tel [phone], Service support , Abdomen/Pelvis CT 04/25/22 15:46 IMPRESSION: 1. Normal appendix. 2. Stable bilateral renal calculi without ureteral or urinary bladder abnormality. 3. Question cyst versus follicle in the retained right ovary. 4. Stable hepatomegaly. 5. No other interval change. Electronically Signed: Juan Antonio Garduno DO at 17:06 EST Reading Location ID and State: [address] [place] [address] Tel [phone], Service support , Chest X-Ray 04/25/22 16:50 IMPRESSION: No acute cardiopulmonary disease or major interval change. Electronically Signed: Juan Antonio Garduno DO at 17:26 EST Reading Location ID and State: [place] / [place] Tel [phone], Service support , Discharge Plan Triage Chief Complaint: Nausea/Vomiting ED Provider: Lazarus Lou Dx/Rx/DC Orders Clinical Impression: Acute viral syndrome, Peripheral vertigo Instructions: ED Vertigo, Unspecified, ED Viral Syndrome (Adult) Prescriptions: New meclizine [meclizine] 25 mg tablet 25 mg PO Q8H PRN PRN (Reason: Dizziness) Qty: 20 0RF promethazine [promethazine] 25 mg tablet 25 mg PO Q6H PRN PRN (Reason: Nausea) Qty: 10 0RF No Action multivitamin tablet 1 tab PO DAILY cetirizine [Zyrtec] 10 mg tablet 10 mg PO DAILY PRN (Reason: allergies) atenolol 25 mg tablet 25 mg PO DAILY potassium chloride 20 mEq tablet extended release 20 meq PO DAILY baclofen 10 mg tablet 10 mg PO BID PRN (Reason: muscle pain) Qty: 60 2RF ondansetron 4 mg tablet,disintegrating 4 mg PO Q8H PRN (Reason: nausea and vomiting) Qty: 90 1RF albuterol sulfate 1 INHALER inhaler 1 - 2 puff INHALATION Q6H PRN PRN (Reason: Asthma) pantoprazole 40 mg tablet,delayed release (DR/EC) 40 mg PO DAILY Rx Instructions: TAKE 1 TABLET BY MOUTH EVERY DAY ketoconazole 2 % cream 1 applic topical BID 21 Days Qty: 30 0RF mesalamine 4 gram/60 mL enema 4 g WV QHS Qty: 1680 0RF sucralfate 100 mg/mL suspension 10 ml PO QACHS Qty: 1000 0RF Primary Care Provider: Rudy Branch Referrals: Rudy Branch DO [Primary Care Provider] - 3-5 Days if not improving Disposition Disposition: Home, Self Care What to do if you have Problems For any increased pain, shortness of breath, bleeding, nausea or vomiting, chestpain, or any unexpected problems, contact your Primary Care Provider. Call [facility] ([phone]) or report to the closest Emergency Room. Call 911 if necessary. 04/25/22 1751 <Electronically signed by Lazarus Lou MD> Cosigner Signature (if applicable): CC: Dr. Rudy Branch DO ~ Signed [facility] Work Phone: [phone]) 980-714401-24-2023 Miscellaneous Notes* Telephone Encounter - Kellen Mayorga MD - 04/21/2022 3:32 PM EST Called patient to discuss tumor board recommendations. Reviewed pathology results showing low gradeproliferation- reassured her. Recommended surveillance US in 6 months. Patient had questions regarding the need to remove her right ovary and her preoperative diagnosis of endometriosis on MRI which was not noted on imaging. Answered her questions to the best of my ability. Kellen Mayorga MD documented in this encounterKindred Healthcare01-23-2023 History of Present illness Narrative* Marifer Nicole MD - 04/20/2022 9:59 PM EST [facility]/Onc Tumor Board Encounter Note Date of Tumor Board Presentation: 04/21/2022 Treating Physicians: Mukesh Foreman MD Age: [age] year old Disease site: Other Stage(at tumor board presentation)- N/A Care Path Discussion: No Clinical Trial Discussion: No If yes, what clinical trial should be considered? NA Type of Tumor Board Review: Adjuvant therapy Attendance/Disciplines: PERFORATOR OPERATOR ONC, RAD ONC, Radiology, Pathology, and Genetics Management Options: - Recommend surveillance Citations: NCCN Ovarian Cancer Guidelines Version 3.2020 Bambi E, Latoya P, Massimon K, Alirio F, Natalie P, Vergote I. Fertility Preservation Is Safe for Serous Borderline Ovarian Tumors. Int J Gynecol Cancer. 2016 Oct;26(8):1399-406. doi: 10.1097/IGC.3053246579960041. PMID: 57340971. This abstract and interpretation of the conversation at tumor board has been completed by Ginette Barber MD. These are the general recommendations/discussion provided at tumor board conference. The definitive recommendations/discussion will be made by the primary health care team and patient afterfull discussion as appropriate. documented in this encounterKindred Healthcare01-10-2023 Miscellaneous Notes* Telephone Encounter - Argelia Martinez RN - 04/07/2022 3:14 PM EST Postop patient Dr. Thomas reports bleeding. s/p 02/10/2022 SURGERY/PROCEDURE(S): Total laparoscopic hysterectomy, right salpingectomy, right ovarian cystectomy, extensive lysis of bladder adhesions, left ureterolysis, excision of bowel lesion.Dr. Alvarado performed flexible sigmoidoscopy Had bleeding 2 [...] lightheadedness, starting 2- 3 ago. Please advise. Sivan Mas RN * Telephone Encounter - Argelia Martinez RN - 04/07/2022 3:12 PM EST Called patient verified name and Gave recommendation of going to the ED for evaluation Patient understood and would go Argelia Martinez RN * Telephone Encounter - Lluvia Muhammad APRN.CNP - 04/07/2022 12:52 PM EST Patient needs to be evaluated today. No providers available to add her on in clinic today. Recommend [facility] [place] [facility] for further evaluation and treatment. Lluvia Muhammad APRN.CNP * Telephone Encounter - Sivan Mas RN - 04/07/2022 11:38 AM EST Postop patient Dr. Thomas reports bleeding. s/p 02/10/2022 SURGERY/PROCEDURE(S): Total laparoscopic hysterectomy, right salpingectomy, right ovarian cystectomy, extensive lysis of bladder adhesions, left ureterolysis, excision of bowel lesion.Dr. Alvarado performed flexible sigmoidoscopy Had bleeding 2 [...] lightheadedness, starting 2- 3 ago. Please advise. Sivan Mas RN * Telephone Encounter - Jeni Pranav [facility] - 04/07/2022 10:43 AM EST Patient of Dr Thomas Status post surgery 01/2022 with vaginal bleeding Patient concerned with her vaginal bleeding Patient can be reached at [phone] Jeni Davis documented in this encounterKindred Healthcare01-10-2023 History of Present illness Narrative* Kellen Mayorga MD - 04/07/2022 2:30 PM EST DATE OF SERVICE: 03/26/2022 REASON FOR VISIT: low grade serous epithelial proliferation on peritoneal biopsy; new consult Consultation requested by Brandee Ramos CNP. My final recommendations will be communicated back to the requesting physician by way of shared Medical record or letter to requesting physician via USmail. 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 She has been following with [facility] for Endometriosis and pelvic pain that she has been sufferingfrom for several years. [facility] was consulted due [...] peritoneal biopsy c/w low grade serous epithelial ce lls. Right fallopian tube and right ovarian cyst was benign. Pathology was reviewed with patient and it was discussed that she follow-up with PERFORATOR OPERATOR ONC and have staging scans done. Patient [...] L4-L5 conjoined nerves affecting R leg-sees neuro [facility] Renal disease Syncope Unspecified asthma(493.90) [...] papillary architectural pattern with mild nuclear atypia andin close association with calcifications. Immunohistochemical stains performed on block A1 demonstrate the lesional cells expressing Staples-8, ER, and MOC-31, with no expression of D2-40, in further support of a serous phenotype and lending no support for mesothelial differentiation. Overall, the histomorphologic and immunophenotypic features are of a low-grade serous epithelial proliferation. Clinical correlation with close clinical follow-up is recommended. Dr. Farideh Card ([facility]) has reviewed the case and [...] Crohn's disease. Reports brown stools with formation nowwhich she says has been new since her hysterectomy in 01/2022. States previous stools before this surgery were yellow in color and less formed. : No history of dysuria, frequency or incontinence PERFORATOR OPERATOR: Reports vaginal spotting (bright red) for 2 [...] 121/72 Pulse 84 Temp 98.2 Ht 5' 2.5" (1.59m) Wt 183 lb 9.6 oz (83.3kg) [...] Pathology of peritoneal biopsy c/w low grade serousepithelial proliferation. Right ovary/fallopian tube benign. 2. Endometriosis [...] but no evidence of metastatic disease which isreassuring. - I will discuss her results at tumor board and have [facility] pathology review her recent pathology as well as her pathology results from her LSO in 2014 (benign serous inclusions with psammoma bodies). Considering her CT scans were unremarkable, I currently do not feel strongly that she should have herright ovary removed at this time. If tumor board recommends removal of her right ovary, she will beput in surgical menopause which she is aware of. - In view of her vaginal bleeding and pelvic cramping, I am unsure of the reason considering she isalmost 2 months post op, though it may [...] Rudy Olvera DO SELF documented in this encounterKindred Healthcare12-29-2022 History of Present illness Narrative* Alpa Johnson RN - 03/26/2022 4:00 PM EST Radiology Service Progress Note DATE OF SERVICE: [...] creatinine assay has traceable calibration to isotope dilution- mass spectrometry. Refer to KDIGO guidelines for clinical interpretation. In patients with unstable renal function, e.g. those with acute kidney injury, the eGFRmay not accurately reflect actual GFR. eGFR- Date [...] Intact SIGNATURE: Alpa Johnson RN PATIENT NAME: aKya Arce DATE: March 26, 2022 TIME: 2:58 PM * RT Micha(R) - 03/26/2022 4:00 PM EST Radiology Service Progress Note PATIENT NAME: Kaya Arce DATE OF SERVICE: March 26, 2022 TIME: 3:41 PM PATIENT IDENTITY VERIFICATION COMPLETED USING TWO (2) IDENTIFIERS: Name and Date of confirmedby patient verbally and Name and Date of [...] 26, 2022 3:41 PM documented in this encounterKindred Healthcare12-19-2022 History of Present illness Narrative* Brandee Ramos APRN.CNP - 03/16/2022 11:[address] scans ordered. WIll route to [...] IVCON CT CHEST W IVCON Brandee Ramos APRN.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 documented in this encounterKindred Healthcare12-16-2022 Miscellaneous Notes* Telephone Encounter - Arely Obregon RN - 03/13/2022 1:42 PM EST Called patient regarding the following incoming message. [...] has an appt scheduled with Dr. Boyce for04/07/22. Please advise documented in this encounterKindred Healthcare12-16-2022 History of Present illness Narrative* Hellen Thomas, - 03/13/2022 10:15 AM EST Images from the original note were not included. [facility] SECTION FOR MINIMALLY INVASIVE GYNECOLOGIC SURGERY OUTPATIENT [...] normal aside from 5 cm ovary. WBC 7and was discharged home. Operative findings included: Anterior [...] Surgery 03/13/2022 5:19 PM documented in this encounterKindred Healthcare12-05-2022 History of Present illness Narrative* Mariely Ruggiero MD - 03/02/2022 12:30 PM EST POSTOP VIRTUAL VISIT DATE OF SERVICE: March [...] papillary architectural pattern with mild nuclear atypia andin close association with calcifications. Immunohistochemical stains performed on block A1 demonstrate the lesional cells expressing Staples-8, ER, and MOC-31, with no expression of D2-40, in further support of a serous phenotype and lending no support for mesothelial differentiation. Overall, the histomorphologic and immunophenotypic features are of a low-grade serous epithelial proliferation. Clinical correlation with close clinical follow-up is recommended. Dr. Farideh Card ([facility]) has reviewed the case and [...] report seeing blood in her urine and hadpassed a kidney stone. Also feels like when [...] Would like to be referred to an will call order clerk for a history of elevated testosterone and skin changes. She saw an will call order clerk before but they are no longer with [...] Dr. Thomas on 03/18/22. All questions answered. Mariely Ruggiero MD Clinical Fellow, PGY-6 Minimally Invasive Gynecologic Surgery documented in this encounterKindred Healthcare11-30-2022 Miscellaneous Notes* Telephone Encounter - Estefani Bowie RN - 02/25/2022 1:33 PM EST Pt had appt to discuss on 02/24/22. Estefani Bowie RN February 25, 2022 1:33 PM * Telephone Encounter - Argelia Martinez RN - 02/23/2022 11:49 AM EST Called LVM to call the office Argelia Martinez RN * Telephone Encounter - Kari Parada - 02/20/2022 11:52 AM EST Patient returning phone call. Please call back. Kari Arrieta * Telephone Encounter - Estefani Bowie RN - 02/18/2022 8:24 AM EST Attempted to call pt. Lvm to call office back. Informed pt if things have worsened to go to the [place] [facility] or the ED. Provided office number. IMNt message sent. Estefani Bowie RN February 18, 2022 8:27 AM * Telephone Encounter - Kari Parada - 02/13/2022 8:49 AM EST Patient calling in again stating she is in a lot of pain and has difficulty using the bathroom and when she does there is bleeding. Please advise: [phone] Kari Arrietaally signed by Kari Parada at 02/13/2022 8:50 AM EST * Telephone Encounter - Lizeth Gallagher Adm - 02/12/2022 2:48 PM EST Patient Kaya Arce of Dr. Thomas. Patient calling stating she is in intense pain since her procedure. She requests a call back today please. Patient can be reached at [phone] Lizeth documented in this encounterKindred Healthcare11-29-2022 History of Present illness Narrative* Lluvia Muhammad APRN.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 - 02/24/2022 10:30 AM EST Images from the original note were not included. [facility] Department of Benign Gynecology [facility] PATIENT NAME: Kaya Arce DATE: 02/24/2022 Patient Name and verified: Yes Patient Location: [place] This Virtual Visit was completed using i[employer] Chart Zoom platform. Chief Complaint CC/REASON FOR [...] papillary architectural pattern with mild nuclear atypia andin close association with calcifications. Immunohistochemical stains performed on block A1 demonstrate the lesional cells expressing Staples-8, ER, and MOC-31, with no expression of D2-40, in further support of a serous phenotype and lending no support for mesothelial differentiation. Overall, the histomorphologic and immunophenotypic features are of a low-grade serous epithelial proliferation. Clinical correlation with close clinical follow-up is recommended. Dr. Farideh Card ([facility]) has reviewed the case and [...] incontinence. -States that her recovery has been "rough" -States that she has had been experiencing urinary symptoms, saw her PCP, negative for infection. States that they found blood in her urine, PCP states that she had a kidney stone. She was given pyridium and toradol. States that she passed a kidney stone 02/23/2022. -States that she has pain that "comes in waves" -States that she is experiencing difficulty urinating [...] Arthritis Asthma Back pain Calculus of kidney 2008 4 stones, followed by Dr. long Cardiac [...] detail and updated PRN. Yes Physical Exam: LMP 01/16/2022 GENERAL: pleasant, euthymic sounding female in [...] Dr. Ruggiero to further discuss post op concernsand pathology. 6) Keep follow up with Dr. Thomas on 03/18/2022. - Patient verbalized agreement to the plan of care. Appointments for Next 60 Days Date Time Provider Location Dept Phone 02/24/2022 10:30 AM LLUVIA MUHAMMAD [facility] [phone] 03/02/2022 12:30 PM MARIELY RUGGIERO A [facility] [phone] 03/18/2022 12:00 PM HELLEN THOMAS A [facility] [phone] SIGNATURE: Lluvia Muhammad APRN.CNP documented in this encounterKindred Healthcare11-14-2022 History of Present illness Narrative* Harley Alvarado DO - 02/09/2022 2:00 PM EST COLORECTAL SURGERY VIRTUAL VISIT FOLLOW UP I had a virtual visit with Ms. Arce today for follow up of endometriosis. UPDATED HISTORY: Kaya Arce is a 36 year old female with endometriosis here today to discuss upcoming surgery with PERFORATOR OPERATOR/[facility] on 02/10. PHYSICAL FINDINGS OF NOTE: General [...] the PFSH and ROS obtained by others. Harley Alvarado DO, FACS, FASCRS Colorectal Surgery Risk of morbidity, mortality and/or complications of treatment plan: high I spent a total of 30 minutes on the date of the service which included preparing to see the patient, [id number] patient care, completing clinical documentation, obtaining and/or reviewing separately obtained history, performing a medically appropriate examination, counseling and educating the pat ient/family/caregiver, ordering medications, tests, or procedures, communicating with other HCPs (not separately reported), independently interpreting results (not separately reported), communicatingresults to the patient/family/caregiver, and care coordination (not separately reported). documented in this encounterKindred Healthcare11-14-2022 Miscellaneous Notes* Telephone Encounter - Nick Lay RN - 02/09/2022 10:53 AM EST Called patient, verified name/. Informed of orders placed for UA and urine culture. [facility] today to leave asample. Discussed that Bactrim was sent to local pharmacy to begin taking after leaving a sample. Will discuss bowel prep in detail with Dr. Alvarado at this afternoon. Patient verbalizes understanding and is agreeable to the plan. Nick Lay RN February 09, 2022 10:57 AM * Telephone Encounter - Lluvia Muhammad APRN.CNP - 02/09/2022 10:47 AM EST UA and culture ordered for patient to have completed at [facility]. Empirically treat with Bactrim, one tablet BID for 7 days while waiting for UA and culture results.Will stop or adjust treatment based on results. The following approved medication requests have been transmitted electronically. Requested Prescriptions Signed Prescriptions Disp Refills sulfamethoxazole-trimethoprim (BACTRIM DS) 800-160 mg per tablet 14 tablet 0 Sig: Take 1 tablet by mouth twice daily for 7 days. Authorizing Provider: NATASHA BOOKER Ordering User: LLUVIA MUHAMMAD Pharmacy Information Pharmacy Address Telephone [facility]/pharmacy #[id number] [address] [place] [address] Lluvia Muhammad APRN.CNP February 09, 2022 10:49 AM * Telephone Encounter - Nick Lay RN - 02/09/2022 10:17 AM EST Called patient, verified name/ Patient is scheduled [...] and frequency. She notes that with her PERFORATOR OPERATOR issues she finds it difficult to differentiate between the two. [facility] office is close to her. Routing to pool. Nick Lay RN February 09, 2022 10:36 AM * Telephone Encounter - Kaya Osei - 02/09/2022 9:33 AM EST Patient: Kaya Arce : 1985 Caller: Patient Caller Phone #: [phone] (home) [phone] (cell) Reason for call: Patient calling with concern that she has bleeding, she is unsure if it's vaginal bleeding or urinary? Pt scheduled for a combo surgery tomorrow with Dr Thomas & Dr Alvarado. Pt also has a questions about her bowel prep she has to take. documented in this encounterKindred Healthcare11-11-2022 Miscellaneous Notes* Telephone Encounter - Tamika Shaver LPN - 02/06/2022 9:58 AM EST Received last office visit from 11/10/21 from [facility]. Copy made for Sigrid Kiran CNP and original sent to scoreboard operator to scan. Tamika Shaver LPN * Telephone Encounter - Tamika Shaver LPN - 02/06/2022 9:42 AM EST Fax request sent to [facility] requesting office visit. Tamika Shaver LPN * Telephone Encounter - Tamika Shaver LPN - 02/06/2022 9:00 AM EST Images from the original note were not included. Sigrid Kiran APRN.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 Tamika Shaver LPN Can we get cardiac records from [facility], pt states she is seen there for hx afib. DOS 02/10/2022 documented in this encounterKindred Healthcare10-31-2022 History of Present illness Narrative* Hellen Thomas DO - 01/26/2022 11:45 AM EDT Images from the original note were not included. [facility] SECTION FOR MINIMALLY INVASIVE GYNECOLOGIC SURGERY OUTPATIENT VISIT DATE 01/26/2022 OUTPATIENT VISIT TYPE HISTORY AND PHYSICAL Referring MD: No referring provider defined for this encounter. HPI: Kaya Arce is a 36 year old female patient followed in Minimally Invasive Gynecologic Surgery for preoperative history and physical for upcoming TLH. She has tried PFPT, multiple surgical procedures, patch, NuvaRing, ervin, jermaine, sprintec, loestrin, provera, Mirena IUD, AMEYA [...] space and tethered the anterior rectosigmoid (3:19). Nodefinite rectosigmoid muscular invasion. Anterior rectal wall tethered is less than 10% of the rectal circumference. Uterosacral ligament: Diffuse thickening along the left uterosacral ligament either infiltrative endometriosis or post surgical scarring (4:26). Rectovaginal space / septum: Normal Additional bowel lesions present? (Sigmoid colon/ small bowel): - Sigmoid colon is focally tethered to the right pelvic sidewall/right ovarian lesion with possiblemuscle lesion, involving less than 25% of the [...] COVID-19 original vaccine, age 12+ yr, monovalent ([employer] - PURPLE TOP) 07/03/2020 Social History Social History Narrative Single 1 son age 2 Lives in [place] [facility] with son, from [facility] Takes care of her son who [...] the past. She would accept a blood transfusionif medically necessary. 2) Postoperative expectations and instructions [...] but not limited to the following were outlinedin detail: Bleeding rarely requiring blood transfusion with [...] discussed with the patient and/or her legal senior customer service representative, all questions have been answered and [...] Surgery 01/26/2022 6:12 PM documented in this encounterKindred Healthcare10-05-2022 History of Present illness Narrative* Travis Martinez MD - 12/31/2021 1:20 PM EDT Images from the original note were not included. Department of Dermatology Travis Martinez MD 12/31/2021 Last visit in Dermatology: 09/30/2021 Objective/Assessment/Plan 1. Acne vulgaris Head - Anterior (Face) Open and closed comedones, with inflammatory papules/pustules Scattered excoriated Patient has tried and failed multiple treatments for adult acne on the face. Seems to be hormonallydriven. Has used spironolactone orally, but caused bleeding [...] the Chief Complaint, ROS, and Past Histories independentlygathered by the clinical account support rep and the remaining scribed note accurately describes my personal service to the patient. Signature: Travis Martinez Date: 12/31/2021 Time: 1:44 PM documented in this encounterKindred Healthcare09-16-2022 History of Present illness Narrative* Hellen Thomas DO - 12/12/2021 9:45 AM EDT Images from the original note were not included. [facility] SECTION FOR MINIMALLY INVASIVE GYNECOLOGIC SURGERY OUTPATIENT VISIT DATE 12/12/2021 OUTPATIENT VISIT TYPE ESTABLISHED PRIMARY CARE PHYSICIAN: Rudy Branch [address] [facility] [place] [address] CHIEF COMPLAINT: Endo, CPP HISTORY OF PRESENT ILLNESS: Kaya Arce is a pleasant 36 year old female who presents for management of Endo and isconcerned about future surgery. She has a PMHx significant for Abnormal pap smear, anal fissure, crohn's disease, cardiac arrhythmia, fibromyalgia, HTN, IC, diaphragmatic hernia, lupus, lyme disease, PCOS, renal disease, obesity (BMI 34), asthma. PSHx CS (pfann), conization, LSO, bilateral inguinalhernia repair as infant, diagnostic l/s, l/s excision of endo, R cystectomy, cholecystectomy.. She was last seen in clinic on 09/08/2021. At that time, she presented for follow up with management of endo. The plan at her last visit included: - Booking request for TLH/BS, ovarian cystectomy vs oophorectomy, cysto, excision of endo, possiblelaparotomy (<1%), possible bowel shave vs discoid - CORS consult placed - Consents signed today Pt currently scheduled for TLH/BS, ex of on 02/17/22 at [facility]. S/p consult w Dr. Alvarado on 10/10/21 Treatment plan: Ok to proceed with endometriosis surgery Will get colonoscopy and GI notes History of ?IBD that seems to be well controlled Pt reports episode of intense pelvic pain 2 weeks ago. Presented to local ED in [place]. Performed CT and US which revealed right adnexa 5cm. She went to [facility] and saw Dr. Davis to see if she could get surgery sooner. Dr. Davis offered surgery at the end of the month. She said he told her her surgery would be "2 hours, straight forward,and all of her pain would be gone." Presents today to see if her surgery [...] space and tethered the anterior rectosigmoid (3:19). Nodefinite rectosigmoid muscular invasion. Anterior rectal wall tethered is less than 10% of the rectal circumference. Uterosacral ligament: Diffuse thickening along the left uterosacral ligament either infiltrative endometriosis or post surgical scarring (4:26). Rectovaginal space / septum: Normal Additional bowel lesions present? (Sigmoid colon/ small bowel): - Sigmoid colon is focally tethered to the right pelvic sidewall/right ovarian lesion with possiblemuscle lesion, involving less than 25% of the [...] Arthritis Asthma Back pain Calculus of kidney 2008 4 stones, followed by Dr. 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 MIGS performing future surgery. Educated [...] the past. She would accept a blood transfusionif medically necessary. 2) Postoperative expectations and instructions [...] but not limited to the following were outlinedin detail: Bleeding rarely requiring blood transfusion with [...] discussed with the patient and/or her legal senior customer service representative, all questions have been answered and [...] DO December 12, 2021, documented in this encounterKindred Healthcare09-02-2022 Miscellaneous Notes* Telephone Encounter - Kari Parada - 11/28/2021 1:56 PM EDT Patient reaching out to schedule surgery. Patient states she has left a couple voicemails but has not heard back. Please contact patient: [phone] Kari Arrieta documented in this encounterKindred Healthcare08-16-2022 Miscellaneous Notes* Telephone Encounter - Kaya Osei - 11/11/2021 11:37 AM EDT Patient: Kaya Arce : 1985 Caller: patient Caller Phone #: [phone] (home) [phone] (cell) Reason for call: patient calling wanting to know if both surgeons have been able to connect about her combo surgery? Date of last visit: 09/08/2021 Date of next visit: Visit date not found documented in this encounterKindred Healthcare07-15-2022 Instructions* Patient Instructions* Elizabeth Nichols MD - 10/10/2021 11:44 AM EDT Images from the original note were not included. Bowel Preparation Instructions for: Golytely, Nulytely, Trilyte or Colyte (polyethylene glycol 3350and electrolytes) IF YOU DO NOT FOLLOW THESE [...] If you do not have a responsible assembly line driver (family member or friend) with you to take you home, your exam cannot be done with sedation and will be cancelled. Please bring a list of all of your current medications, including any Over-the Counter medications with you. Medications If you take insulin, diabetic medications or blood thinners such as Coumadin (warfarin), Plavix (clopidogrel), Ticlid (ticlopidine hydrochloride), Agrylin (anagrelide), Xarelto (Rivaroxaban), Pradaxa(Dabigatran), Eliquis (Apixaban), and Effient (Prasugrel). You MUST [...] at your local pharmacy or drugstore pharmacy. 1 02/2019 Bowel Preparation Instructions for: Golytely, Nulytely, Trilyte or Colyte (polyethylene glycol 3350and electrolytes) Three (3) Days Before Your Colonoscopy [...] your exam. 2 02/2019 documented in this encounterKindred Healthcare07-15-2022 History and physical note * Harley Alvarado, - 10/10/2021 11:00 AM EDT COLORECTAL SURGERY New Patient Visit October 08, 2021 Chief Complaint: endometriosis History of Present Illness: Kaya Arce is a 36 year old female here today to be evaluated for Colorectal surgery for Endometriosis. She has been having "bowel iissues"for long time. She has a lot of bloating and epigastric pain. 3 years ago she had a fissure and had a hemorrhoid removed (Dr. Blankens[facility]). She has had gastric reflux. Last colonoscopy was in 2019 - stated colon was "achy". She has mostly diarrhea. 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 Harley Alvarado DO, FACS, FASCRS Colorectal Surgery Attending Note I evaluated the patient and personally participated in the cameron components. I agree with the resident's findings and plan as documented and have discussed the case and management of the patient's carewith the resident. Signature: Harley Alvarado DO Date: 10/21/2021 Time: 11:14 AM Colorectal Surgery Risk of morbidity, mortality and/or complications of treatment plan: high documented in this encounterKindred Healthcare07-12-2022 Miscellaneous Notes* Telephone Encounter - Travis Martinez MD - 10/07/2021 8:18 AM EDT Signed Prescriptions Disp Refills tacrolimus (PROTOPIC) 0.1 % ointment 30 g 3 Sig: Apply to affected area twice daily. RUBIO: No Authorizing Provider: TRAVIS MARTINEZ * Telephone Encounter - Lisa Gonzalez RN - 10/02/2021 3:52 PM EDT Received prior authorization denial for tacrolimus 0.1% ointment via fax from [facility]. "coverageis provided when the member does NOT exceed 30 grams within a 26 day period". Please advise. * Telephone Encounter - Lisa Gonzalez RN - 10/01/2021 9:53 AM EDT Fax received from pharmacy requesting prior authorization be completed for tacrolimus 0.1% ointment. ePA initiated and submitted. Will await determintation. documented in this [facility]07-07-2022 History of Present illness Narrative* Argelia Holden MA - 10/02/2021 12:58 PM EDT PULM FUNCTION SMARTBLOCK: Provider: Karen Doshi MD Spirometry: 1 Exhaled Nitric Oxide: 1 documented in this encounterKindred Healthcare07-07-2022 Procedure note* Argelia Holden MA - 10/02/2021 12:58 PM EDT Associated Order(s): NITRIC OXIDE, EXHALED RESPIRATORY THERAPY [...] 2021 TIME: 12:58 PM documented in this encounterKindred Healthcare07-07-2022 History of Present illness Narrative* Nikki Leos RN - 10/02/2021 11:04 AM EDT Hydrocortisone 2.5 % cream applied to positive [...] mm F = 3 mm 15. Beech, Lao 1:20 P: W = 0 mm F = 3 mm 16. Birch Mix 1:20 P: W = 0 mm F = 3 mm 17. Maple Mix 1:20 P: W = 0 mm F = 3 mm 18. [place] ,Eastern 1:20 P: W = 0 mm F = 3 mm 19. Elm, Lao 1:20 P: W = 0 mm F = 3 mm 20. [place], Shagbark 1:20 P: W = 0 mm F = 3 mm 21. [place], Red 1:20 P: W = 0 mm F = 3 mm 22. [place], Red 1:20 P: W = 0 mm F = 3 mm 23. [place], Lao/Eastern 1:20 P: W = 0 mm F = 3 mm 24. Katy Pollen, Black 1:20 P: W = 0 mm F = 3 mm 25. [place], Black 1:20 P: W = 0 mm F = 3 mm 26. [place] Grass 10,000 BAU/ml P : W = 0 mm F = 3 mm 27. [place], Blue/Sofy 100,000 BAU/ml P: W = 0 mm F = 3 mm 28. [place], Pres[place] 100,000 BAU/ml P: W = 0 mm F = 3 mm 29. Robel Grass 1:20 P: W = 0 mm F = 3 mm 30. Orchard Grass 100,000 BAU/ml P: W = 0 mm F = 4 mm 31. Perennial [place], 100,000 BAU/ml P: W = 0 mm F = 3 mm 32. [place] 100,000 BAU/ml P: W = 0 mm F = 3 mm 33. [place] 1:20 P: W = 0 mm F = 3 mm 34. [place], sheep 1:20 P: W = 0 mm F = 3 mm 35. Plantain, Pakistani 1:20 P: W = 0 mm F [...] 4 mm F= 0 mm 12. Special Elim Mix 1:500 ID: W = 4 mm [...] 2. CEFAZOLIN SODIUM (ANCEF) 20mg/ml Lot #: [id number]; exp : 03/2022 P: W = 0 mm F = 3mm ID: W = 3 mm F = 0 mm 3. HISTAMINE- positive control (Histamine base 6mg/ml)for Prick and 0.1 mg/ml for intradermal P: W = 7 mm F = 9 mm * Karen Doshi MD - 10/02/2021 10:06 AM EDT Images from the original note were not included. john paul ALLERGY & IMMUNOLOGY CONSULT Patient Name: Kaya Arce PRIMARY CARE PHYSICIAN: Rudy Branch DO REASON FOR CONSULT: Allergies and asthma REQUESTING PHYSICIAN: Travis Martinez MD My final recommendations will be communicated to the requesting health care provider by way of the shared medical record for internal providers or letter via the [employer] for external providers. CHIEF COMPLAINT: Allergies and Asthma HISTORY OF PRESENT ILLNESS: Kaya Arce is a 36 year old female, Ht 157.5 cm (5' 2") BMI 34.39 kg/m2, with a history of worsened asthma and rhinitis symptoms since COVID infection. She also notesthat her skin has been much more sensitive. [...] and syncope. She has seen cardiology in [place] for this. She had history of anaphylaxis from stinging insect at age 3. Type of insect was not identified butpresumed to be either a bee or yellowjacket. [...] in the home: 2 cats, 1 dogs [facility] Jaime: mixed jaime Air conditioning: Central air [...] 4 gram powder Start with 1 g 2- 3x/week; and increase to 1g daily; and then [...] disturbance, mood disorder and recent psychosocial stressors HEMATOLOGIC/LYMPHATIC/IMMUNOLOGIC:Negative for cold or heat intolerance, polyuria, polydipsia and goiter. PHYSICAL EXAM: BP 108/66 Pulse 69 Temp (Src) 97.4 (Temporal) Resp 22 Ht 5' 2" (1.58m) Wt 188 lb (85.3kg) SpO2 100[Room [...] 5.52 (H) 1.00 - 4.00 k/uL Final Gentry% Date Value Ref Range Status 07/24/2020 6.0 % Final Abs Gentry Date Value Ref Range Status 07/24/2020 0.85 [...] which included preparing to see the patient, [id number] patient care, completing clinical documentation, performing a medically appropriate examination, counseling and educating the patient/family/caregiver and ordering medications, tests, or procedures. Karen Doshi MD documented in this encounterKindred Healthcare07-05-2022 History of Present illness Narrative* Travis Martinez MD - 09/30/2021 8:40 AM EDT Images from the original note were not included. Department of Dermatology Travis Martinez MD 09/30/2021 Last visit in Dermatology: 07/14/2021 [...] trunk and bilateral lower extremities. Present for severalyears. Waxes and wanes, improved with isotretinoin, but could not tolerate the medication. Has lotsof problems tolerating oral medications, some extensive GI [...] Mantilla Ma 09/30/21 8:44 AM Attending signature: Travis Martinez MD This note is completed at 2:04 PM on 09/30/2021 and reflects the services provided at the time of theappointment. I agree with the Chief Complaint, ROS, and Past Histories independently gathered by the clinical account support rep. documented in this encounterKindred Healthcare06-13-2022 Instructions* Patient Instructions* Tamika Salmon - 09/08/2021 12:01 PM EDT Images from the original note were not included. Please visit the following website for the [facility] surgery guide. [email or web address] MINIMALLY INVASIVE GYNECOLOGIC SURGERY (MIGS)/BENIGN GYNECOLOGY CONTACTS: Surgeons: Dr. Alpa Qiu Dr. Hellen Thomas Dr. Gertrudis Barba Dr. Jose Soria Dr. Mia Rodriguez Dr. Fredy Estrada Dr. Mey Mckeon [facility] Nurse Practitioners: Brandee Ramos DESIGNER.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 Natasha Booker DESIGNER.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 Liliane Templeton, DESIGNER.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 Lita Iqbal, DESIGNER.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 Surgery Scheduling Office: Call the day before surgery after 2pm for your surgery arrival time After hours phone number: or toll free Ask the scoreboard operator to page the office services specialist mission commander.' Business hours are Wednesday - Wednesday from [...] call within 5 days then please call [phone]) Once contacted by the scheduling team, you will work with the equipment scheduler to select a surgical OR date that works for both you and the provider The equipment scheduler will set up all of your [...] You will receive a call from the ticket scheduler the day prior to your surgery as to when and where to arrive on the day of your scheduled surgery QUESTIONS: If you have any clinical questions Please contact your provider s office directly. If you have any scheduling questions Please contact the surgery scheduling office at [phone] THANK YOU for choosing the [facility] We wish you a speedy recovery and [...] THESE MEDICATIONS 7 DAYS PRIOR TO SURGERY: (Motrin/ibuprofen/Naproxen/Aleve/Advil), Aspirin, vitamin E, herbal medications, diet pills, and hexc-pgc-jcbhggg medications. Tylenol (acetaminophen) is okay. I will not wear jewelry, body piercing(s), makeup, nail estonian, hairpins, or contacts on the day ofsurgery. I am to leave valuables and money [...] not I should stop them before surgery withmy surgeon. Discuss medication changes with your break out worker or primary care physician as well. If I stopped taking my blood-thinning medication, I will ask the surgeon when to resume taking it. If I am an outpatient, a responsible person will drive me home and it was suggested that someone stay with me for 24 hours. I understand that a strategic business development or cabdriver is NOT a responsible caregiver. Patients with diabetes,I will not take my morning diabetes medication (pills) on the morning of surgery. If I am on insulin, someone has gone over those instructions with me for the morning of surgery. I understand if my surgery is delayed, I will notify the check in desk that I have diabetes. See the Diabetic GuidelinesBefore Surgery in the patient education section. If I have Obstructive Sleep Apnea and use a CPAP/BiPAP machine, I will bring my mask, tubing, and machine with me on the day of surgery. Pain management education material found in Your Surgical Guide was reviewed with me. To find out my arrival time for surgery, I must call my director surgical after 2pm the day beforesurgery. Pre-operative instructions given by: PREOP INSTRUCTIONS THE DAY OF SURGERY/CHECK IN - Report to DESK J1-9 for surgery. A map is located in Your Surgical Guide Book. - The online version of the surgical guide book can be found at: [email or web address] - The address is [address] [place] [address] INFECTION PREVENTION - Please notify your doctor [...] be able to eat/drink, urinate, and have yourpain controlled with oral medication. Your surgeon or [...] Your Surgical Guide Book for more information. [facility] TEAM - At the [facility], we have a multidisciplinary team of caregivers that includes fellows, residents, nurse practitioners, physician assistants, clinical nurse specialists, nurses, medical assistants, patient care nursing assistants, social workers, shoe parts caser and many others. 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 You may return to work in 2-4 weeks if your job requires a lot of movement. Please contact your doctor if you need any return to work letters or medical leave paperwork to be completed. WOUND CARE * If you had a laparoscopic or robotic hysterectomy, you will have small incisions on your abdomen.There will be dissolvable stitches under your skin [...] for incisions. Do NOT use cleansing agents likealcohol or hydrogen peroxide. * Wash your hands frequently, especially before touching your incision or changing any dressings. PAIN MANAGEMENT * Take your oral pain medication as needed. * Alternate Tylenol and ibuprofen/Motrin (if you are eligible). Each of these medications can be taken every six hours. Try to stagger them so that you are taking something for pain every three hours(ex. Take Motrin at 12:00, Tylenol at 3:00, [...] so take with caution and do not takemore than the recommended amount. * Please be sure to dispose of leftover pain medication after you have recovered. You may dispose of unused narcotic medications in the trash with an unpleasant substance such as coffee grounds or cat litter or you can turn them in to a designated law enforcement/pharmacy narcotic box. You can alsocheck FDA.gov to assess which medications can be safely flushed down the toilet. * There are locations to dispose of unused medications at three [facility] locations: [facility] pharmacy, [facility] pharmacy, and the Pharmacy at the [facility] for [facility] (inside the parking garage on the first floor). WHAT TO EXPECT AT HOME * Recovery from surgery is generally 2-4 weeks, but sometimes longer for more strenuous activity. It is normal to be very tired during this time. * It is normal to have some drainage or a small amount of vaginal bleeding after surgery that wouldrequire the use of a light pantiliner. This [...] without gas, with fever, or nausea/vomiting and inabilityto eat. Call your doctor if these symptoms [...] bleeding from incisions can be normal after laparoscopicsurgery. Concerning drainage that is persistent, thick/cloudy, or [...] HAVE: Any shortness of breath, difficulty breathing, orchest pain. IF YOU FEEL YOU NEED TO GO TO THE EMERGENCY DEPARTMENT POST OPERATIVELY, WE RECOMMEND THE MAIN CAMPUS EMERGENCY DEPARTMENT FOR CONTINUITY OF CARE AND THE BEST ACCESS TO ONE OF THE SURGEONS ON OUR TEAM. Address: [address] [place] [id number] PATIENT SURGICAL CHECKLIST NEXT STEPS You and your provider have determined that you are a surgical candidate. Here are the next steps inthe process to you being scheduled for your surgery: Your provider will submit the case to the schedulers. You should receive a call within 5 business days from our scheduling team. If you do not receive a call within 5 days then please call [phone] Once contacted by the scheduling team, you will work with the equipment scheduler to select a surgical OR date that works for both you and the provider The equipment scheduler will set up all of your Pre-Op appointments, which may include all or some of the following: Covid Testing Pre-Op consent appointment w/ your provider Pre-Op teaching appointment *can be done virtually Labs Admit Interview OnePACC (Anesthesia Clearance) And any other testing that the provider orders for prior to surgery You will receive a call from the ticket scheduler the day prior to your surgery as to when and where to arrive on the day of your scheduled surgery QUESTIONS: If you have any clinical questions: Please contact your provider's office directly; Earline Campuzano [phone] If you have any scheduling questions: Please contact the surgery scheduling office at [phone] THANK YOU for choosing the [facility]! We wish you a speedy recovery and continued good health! documented in this encounterKindred Healthcare06-13-2022 History of Present illness Narrative* Tamika Salmon - 09/08/2021 11:15 AM EDT Images from the original note were not included. [facility] SECTION FOR MINIMALLY INVASIVE GYNECOLOGIC SURGERY OUTPATIENT VISIT DATE 09/08/2021 OUTPATIENT VISIT TYPE ESTABLISHED PRIMARY CARE PHYSICIAN: Rudy Branch [address] [place] [id number] CHIEF COMPLAINT: Follow up HISTORY OF PRESENT ILLNESS: Kaya Arce is a pleasant 36 year old female who presents for management of endo with aPMHx significant for Abnormal pap smear, anal fissure, [...] Linda. She reported pelvic pain, diarrhea. She notedher sxs were improved during menses. She was not taking anything for hormonal suppression. The planat her last visit included: -PFPT - MRI [...] space and tethered the anterior rectosigmoid (3:19). Nodefinite rectosigmoid muscular invasion. Anterior rectal wall tethered is less than 10% of the rectal circumference. Uterosacral ligament: Diffuse thickening along the left uterosacral ligament either infiltrative endometriosis or post surgical scarring (4:26). Rectovaginal space / septum: Normal Additional bowel lesions present? (Sigmoid colon/ small bowel): - Sigmoid colon is focally tethered to the right pelvic sidewall/right ovarian lesion with possiblemuscle lesion, involving less than 25% of the [...] Arthritis Asthma Back pain Calculus of kidney 2008 4 stones, followed by Dr. 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 As pt has one remaining ovary,recommend keeping ovary in place. Explained that there are some scenarios where ovary will have to be removed. If ovary is removed, recommend Dr. Gant or Dr. Noble consult for HRT. Educated that if pt requires HRT, she should start HRT 4 weeks postop. - Pt has hx HTN, is concerned about starting HRT due to elevated bp while on suppression. Explainedthat HRT is typically lower dose than hormonal [...] cystectomy vs oophorectomy, cysto, excision of endo, possiblelaparotomy (<1%), possible bowel shave vs discoid - [...] the past. She would accept a blood transfusionif medically necessary. 2) Postoperative expectations and instructions [...] was given the postoperative instructions outlined at thebottom of this note. 3) She has comorbid medical conditions including previous abdominal surgeries, crohn's disease, HTN, BMI 34, asthma. 4) CONSENT: The risks, benefits and alternatives as well as the indications of her planned surgery were reviewed with the patient today. Risks including but not limited to the following were outlinedin detail: Bleeding rarely requiring blood transfusion with [...] discussed with the patient and/or her legal senior customer service representative, all questions have been answered and [...] All medical record entries made by the nubia were at my direction and in my presence. I have reviewed the chart and discharge instructions (if applicable) and agree that the record reflects my personal performance and is accurate and complete. Dr. Hellen Thomas DO September 08, 2021, documented in this encounterKindred Healthcare04-29-2022 Hospital Discharge instructions Patient Education 07/25/2021 15:46:50 Flank Pain, Uncertain Cause Flank Pain, Uncertain Cause The flank is the area between your upper abdomen and your back. Pain there is often caused by a problem with your kidneys. It might be a kidney infection or a kidney stone. Other causes of flank paininclude spinal arthritis, a pinched nerve from a back injury, or a back muscle strain or spasm. The cause of your flank pain is not certain. You may need other tests. Home care Follow these tips when caring for yourself at home: You may use acetaminophen or ibuprofen to control pain, unless your health care provider prescribedanother medicine. If you have chronic liver or [...] You might find that alternating ice and heatworks well. Use the method that feels the [...] worse Numbness or weakness in a leg [id number] [employer]. [address] [place] [address]. All rights reserved. This information is not intended as a substitute for professional medical care. Always follow yourhealthcare professional's instructions. Follow Up Care 07/25/2021 13:15:31 With:RUDY BRANCH DO Address: [address] [place] [id number]- When:2-4 days [facility] 04-18-2022 History of Present illness Narrative* Joellen Yoder APRN.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 - 07/14/2021 5:45 PM EDT Images from the original note were not included. Department of Dermatology Joellen Yoder APRN.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 07/14/2021 Last visit in Dermatology: 01/08/2021 Objective/Assessment/Plan [...] as previously. -recommend follow up with Dr. Martinez for further management, given failure of isotretinoin. [...] hand, patient reports it happens monthly - "almost on a cycle". She treats this with Vaseline on affected fingers and then a plastic glove over top overnight. She states this has been going on for ~ 5 months. The skin of the fingers is normal today. She notes no peeling. 2.) Hair loss from isotretinoin therapy. She completed only 1 month of isotretinoin 20mg daily. Shereports significant hair loss on the scalp and a change in texture of the hair. 3.) Worsening folliculitis on the face, scalp, and trunk. She noted improvement of this with takingisotretinoin. She is uncertain what to do for this moving forward. 4.) fungal rash on the bilateral inframammary. Controlled with use of nystatin, but she admits frustration that this never goes away. Past medical history is reviewed. Medication list is reviewed. Physical Exam included: To waist: Scalp, face, ears, neck, back, chest, abdomen, bilateral upper extremities Intake completed by HUMBERTO Murillo APRN.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 documented in this encounterKindred Healthcare03-31-2022 Instructions* Patient Instructions* Tamika Salmon - 06/26/2021 8:25 AM EDT [email or web address] Pelvic Floor Dysfunction (PFD) The pelvic floor is made up of the bony pelvis (hip bones) together with different layers of muscles, fascia, and ligaments. The pelvic floor acts like a hammock to support the pelvic organs including the uterus, bladder, and rectum. If the muscles become overactive, strained or uncoordinated, theymay cause pain in the pelvis. This pain [...] therapy, therapeutic exercise, postural training, breathing exercises, n euromuscular reeducation (teaching how to improve pelvic floor muscle control including relaxation,contraction, and coordination), biofeedback, and home exercise program. [...] pelvic pain society ([email or web address]) documented in this encounterKindred Healthcare03-31-2022 History and physical note * Hellen Thomas DO - 06/26/2021 7:45 AM EDT Images from the original note were not included. [facility] SECTION FOR MINIMALLY INVASIVE GYNECOLOGIC SURGERY OUTPATIENT VISIT DATE 06/26/2021 OUTPATIENT VISIT TYPE CONSULT PRIMARY CARE PHYSICIAN: Rudy Branch [address] [place] [id number] CHIEF COMPLAINT: Endometriosis, chronic pelvic pain Dr. [...] She reports difficulty urinating when not on menses.Pt also has hx POTS, which she suspects is hormonally driven. Pt states her local PERFORATOR OPERATOR referred her to ROSALINDA, who recommended hysterectomy. She then followed up with Dr. Mckeon. Pt states that a surgery date was not set with Dr. Mckeon, but they also decided to pursue hysterectomy. She did PFPT for about 1 year ~2016, discontinued due to long commute about 5 [...] the following for menses suppression: patch, NuvaRing, ervin, jermaine, sprintec, loestrin, provera, MIrena, AMEYA She [...] adhesions/endometriosis described intraop- improved bowel sxs after surg(for approx 6 mos) In 2017 had laparoscopy [...] including, but not limited to endometriosis, pelvic adhesivedisease,felisha tone pelvic floor, ov cysts/ovulation, and non-office services specialist causes including GI, , and MSK. Morteza [...] R/B/A including endometrial sampling under anesthesia or proceedingto hysterectomy without biopsy. Discussed risk of undiagnosed pathology and potential chi for additional treatment/surgery. Patient most interested in [...] is observed within the endometrial complex. 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 The diagnosis can only be confirmed by surgery with tissue sample examined by pathology. Educated that endometriosis is often a chronic condition that may recur and often requires a [place] [facility] treatment plan. Once endometriosis is identified, there [...] treated. These causes may include gastrointestinal, genitourinary, psyc hological, or musculoskeletal. Neuropathic pain: We discussed the [...] cystitis, irritable bowel syndrome, and low back pain)are caused by this type of neuropathic pain, [...] exam alone. These conditions are usually chronic (andcannot be cured), but can often be managed by a combination of pharmacologic therapies and behaviormodification techniques. In women who underwent local excision with ovarian preservation, the surgery- free percentages were 79.4%, 53.3%, and 44.6%, respectively, at 2, 5, and 7 years. In women who underwent hysterectomy with ovarian preservation, the 2-, 5- , and 7-year reoperation-free percentages were 95.7%, 86.6%, [...] PE. During in person visit will discuss surgicalintervention as pt is interested in hysterectomy w/ [...] DO June 26, 2021, documented in this encounterKindred Healthcare02-06-2022 Hospital Discharge instructions Patient Education 05/04/2021 11:29:06 [...] diarrhea. Sometimes it causes generalized symptoms like "aching all over," feeling tired, loss of energy, or loss of appetite. A viral illness usually lasts anywhere from several days to several weeks, but sometimes it lasts longer. In some cases, a more serious infection can look like a viral syndrome in the first few days of the illness. You may need another exam and additional tests to know the difference. Watch for thewarning signs listed below for when to seek medical advice. Home care Follow these guidelines for taking care of yourself at home: If symptoms are severe, rest at home for the first 2 to 3 days. Stay away from cigarette smoke - both your smoke and the smoke from others. You may use uizi-ntb-rkqvvwj acetaminophen or ibuprofen for fever, muscle aching, [...] replacement and sports drinks; and decaffeinated teas andcoffee. If you have been diagnosed with a kidney disease, ask your healthcare provider how much andwhat types of fluids you should drink to prevent dehydration. If you have kidney disease, drinking too much fluid can cause it build up in the your body and be dangerous to your health. Pabk-bav-gfdcuea remedies won't shorten the length of the [...] or as directed by your healthcare provider [id number] [employer]. [address] [place] [address]. All rights reserved. This information is not intended as a substitute for professional medical care. Always follow yourhealthcare professional's instructions. Follow Up Care 05/04/2021 11:10:11 With:RUDY BRANCH DO Address: [address] [place] [address]- When:2-4 days [facility] 07-01-2020 History of Present illness Narrative* Ms. Arce is a 35 year old female presents virtually for pelvic pain, difficulty urinating, rectalissues * kindly referred by Dr. Mia Meehan, primary care is Dr. Branch * w cholecystectomy September 2019, Dr. Meehan, PERFORATOR OPERATOR cleaned up endometrial adhesions * bladder and uterus adhered to abdominal wall, referred for further treatment as a lot of adhesions * Referred to Dr. Turner, [facility] was planning hysterectomy d/t endometriosis but he moved from [facility] to [place] * terrible menses, bleeds heavily but feels the best then w pelvic pain during menses * during menses more difficult to urinate, weak stream, not sure if r/t uterus * has tried multiple control, doesn t do well w hormones * menses 6-10 days range * Mar- May 2020 passed 7 kidney stones, recently saw Urologist Dr. Whittington, [facility] * started on potassium citrate (caused burning w urination had to stop) * stone analysis 30% uric acid, considering allopurinol, * father has kidney stones managed w allopurinol well * lithotripsy in past, began passing stones age 18 * saw Urologist Dr. Patel in past but not on insurance now * Dr. 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 * Dexamethasone for 2.5 months helped orthopedically and other issues * Gained 15 lbs w steroids now back to loose stools * endoscopy and colonoscopy as still loose stools after cholecystectomy * Bile Reflux, pantoprazole; Crohn's * 2 years ago hemorrhoidectomy, rectal fissure, spasms occur when bladder spasms occur * Low potassium issues * on Azithromycin 250 mg daily x 2 months from Derm d/t folliculitis/rosacea (so far 8 days) * Same partner for 20 years, but unable to have intercourse past 2 years d/t pain * PMH: Dysautonomia, low bp, PVC, PAC (cardiology manages) Lupus vs mixed connective tissue disorder,back issues * PSH: cholecystectomy, endometriosis adhesion removal, lithotripsy; hemorrhoidectomy * FH: father kidney stones, grandmother had breast cancer, grandfather prostate cancer * SH: denies smoking history, on disability last worked Feb 2018 w dysautonomia (POTS) PX-Pyrmyjo-Odayietf [id number] DO Work Phone: [phone]) 546-515809-22-2017 Fall risk [id number] NoFall risk assessmentPorter Regional Hospital's [id number] Fall risk assessment FALLRSKASSESNoFall risk assessmentBlMemorial Hospital of South Bend's [id number] Fall risk [id number]/27FALLRSKASSESNoFall risk assessmentWooster Endocrinology Work Phone: 1(923) 395-397306-16-2014 History of Past illness Narrative* Problem Noted Date Resolved Date Low back pain 09/11/2013 10/06/2017 Buttock pain 09/11/2013 10/06/2017 Backache, unspecified 05/30/2012 10/06/2017 Pyoderma 05/07/2011 05/21/2016 Pruritus 05/07/2011 05/21/2016 Xerosis cutis 03/08/2011 05/21/2016 Spasm of muscle 05/21/2010 10/06/2017 Pyoderma, unspecified 12/21/2009 05/21/2016 Excoriation 09/08/2009 05/21/2016 Routine gynecological examination 09/26/2008 11/21/2011 Overview: [facility], [facility] [place] Poor growth, affecting management of mother, antepartum condition or complication 08/15/2008 09/26/2008 Routine general medical exam ination at a health care facility 08/01/2008 11/21/2011 Overview: 08/01/08 -- establish care Routine gynecological examination 08/01/2008 08/15/2008 Overview: [facility], [facility] [place] Urinary calculus, unspecified 12/22/2007 Overview: First occurred in early 2006, again summer 2007 - total as of Dec 2007 Pain in joint, lower leg 12/11/2005 008 Hemorrhage of rectum and anus Abnormal maternal glucose tolerance, antepartum 08/01/2008 Overview: diet controlled documented as of this encounter (statuses as of 06/26/2021) [facility]06-16-2014 History of Past illness Narrative* Problem Noted Date Resolved Date Low back pain 09/11/2013 10/06/2017 Buttock pain 09/11/2013 10/06/2017 Backache, unspecified 05/30/2012 10/06/2017 Pyoderma 05/07/2011 05/21/2016 Pruritus 05/07/2011 05/21/2016 Xerosis cutis 03/08/2011 05/21/2016 Spasm of muscle 05/21/2010 10/06/2017 Pyoderma, unspecified 12/21/2009 05/21/2016 Excoriation 09/08/2009 05/21/2016 Routine gynecological examination 09/26/2008 11/21/2011 Overview: [facility], [facility] [employer] Poor growth, affecting management of mother, antepartum condition or complication 08/15/2008 09/26/2008 Routine general medical exam ination at a health care facility 08/01/2008 11/21/2011 Overview: 08/01/08 -- establish care Routine gynecological examination 08/01/2008 08/15/2008 Overview: [facility] [place] Urinary calculus, unspecified 12/22/2007 Overview: First occurred in early 2006, again summer 2007 - total as of Dec 2007 Pain in joint, lower leg 12/11/2005 008 Hemorrhage of rectum and anus Abnormal maternal glucose tolerance, antepartum 08/01/2008 Overview: diet controlled documented as of this encounter (statuses as of 07/14/2021) [facility]06-16-2014 History of Past illness Narrative* Problem Noted Date Resolved Date Low back pain 09/11/2013 10/06/2017 Buttock pain 09/11/2013 10/06/2017 Backache, unspecified 05/30/2012 10/06/2017 Pyoderma 05/07/2011 05/21/2016 Pruritus 05/07/2011 05/21/2016 Xerosis cutis 03/08/2011 05/21/2016 Spasm of muscle 05/21/2010 10/06/2017 Pyoderma, unspecified 12/21/2009 05/21/2016 Excoriation 09/08/2009 05/21/2016 Routine gynecological examination 09/26/2008 11/21/2011 Overview: [facility], [facility] [place] Poor growth, affecting management of mother, antepartum condition or complication 08/15/2008 09/26/2008 Routine general medical exam ination at a health care facility 08/01/2008 11/21/2011 Overview: 08/01/08 -- establish care Routine gynecological examination 08/01/2008 08/15/2008 Overview: [facility], [facility] [place] Urinary calculus, unspecified 12/22/2007 Overview: First occurred in early 2006, again summer 2007 - total as of Dec 2007 Pain in joint, lower leg 12/11/2005 008 Hemorrhage of rectum and anus Abnormal maternal glucose tolerance, antepartum 08/01/2008 Overview: diet controlled documented as of this encounter (statuses as of 07/17/2021) [facility] History of Past illness Narrative* Problem Noted Date Resolved Date Low back pain 09/11/2013 10/06/2017 Buttock pain 09/11/2013 10/06/2017 Backache, unspecified 05/30/2012 10/06/2017 Pyoderma 05/07/2011 05/21/2016 Pruritus 05/07/2011 05/21/2016 Xerosis cutis 03/08/2011 05/21/2016 Spasm of muscle 05/21/2010 10/06/2017 Pyoderma, unspecified 12/21/2009 05/21/2016 Excoriation 09/08/2009 05/21/2016 Routine gynecological examination 09/26/2008 11/21/2011 Overview: [facility], [facility] [employer] Poor growth, affecting management of mother, antepartum condition or complication 08/15/2008 09/26/2008 Routine general medical exam ination at a health care facility 08/01/2008 11/21/2011 Overview: 08/01/08 -- establish care Routine gynecological examination 08/01/2008 08/15/2008 Overview: [facility], [facility] [employer] Urinary calculus, unspecified 12/22/2007 Overview: First occurred in early 2006, again summer 2007 - total as of Dec 2007 Pain in joint, lower leg 12/11/2005 008 Hemorrhage of rectum and anus Abnormal maternal glucose tolerance, antepartum 08/01/2008 Overview: diet controlled documented as of this encounter (statuses as of 08/05/2021) [facility] History of Past illness Narrative* Problem Noted Date Resolved Date Low back pain 09/11/2013 10/06/2017 Buttock pain 09/11/2013 10/06/2017 Backache, unspecified 05/30/2012 10/06/2017 Pyoderma 05/07/2011 05/21/2016 Pruritus 05/07/2011 05/21/2016 Xerosis cutis 03/08/2011 05/21/2016 Spasm of muscle 05/21/2010 10/06/2017 Pyoderma, unspecified 12/21/2009 05/21/2016 Excoriation 09/08/2009 05/21/2016 Routine gynecological examination 09/26/2008 11/21/2011 Overview: [facility], [facility] [employer] Poor growth, affecting management of mother, antepartum condition or complication 08/15/2008 09/26/2008 Routine general medical exam ination at a health care facility 08/01/2008 11/21/2011 Overview: 08/01/08 -- establish care Routine gynecological examination 08/01/2008 08/15/2008 Overview: [facility], [facility] [place] Urinary calculus, unspecified 12/22/2007 Overview: First occurred in early 2006, again summer 2007 - total as of Dec 2007 Pain in joint, lower leg 12/11/2005 008 Hemorrhage of rectum and anus Abnormal maternal glucose tolerance, antepartum 08/01/2008 Overview: diet controlled documented as of this encounter (statuses as of 08/28/2021) [facility] of Past illness Narrative* Problem Noted Date Resolved Date Low back pain 09/11/2013 10/06/2017 Buttock pain 09/11/2013 10/06/2017 Backache, unspecified 05/30/2012 10/06/2017 Pyoderma 05/07/2011 05/21/2016 Pruritus 05/07/2011 05/21/2016 Xerosis cutis 03/08/2011 05/21/2016 Spasm of muscle 05/21/2010 10/06/2017 Pyoderma, unspecified 12/21/2009 05/21/2016 Excoriation 09/08/2009 05/21/2016 Routine gynecological examination 09/26/2008 11/21/2011 Overview: [facility], [facility] [place] Poor growth, affecting management of mother, antepartum condition or complication 08/15/2008 09/26/2008 Routine general medical exam ination at a health care facility 08/01/2008 11/21/2011 Overview: 08/01/08 -- establish care Routine gynecological examination 08/01/2008 08/15/2008 Overview: [facility], [facility] [place] Urinary calculus, unspecified 12/22/2007 Overview: First occurred in early 2006, again summer 2007 - total as of Dec 2007 Pain in joint, lower leg 12/11/2005 008 Hemorrhage of rectum and anus Abnormal maternal glucose tolerance, antepartum 08/01/2008 Overview: diet controlled documented as of this encounter (statuses as of 09/12/2021) [facility] of Past illness Narrative* Problem Noted Date Resolved Date Low back pain 09/11/2013 10/06/2017 Buttock pain 09/11/2013 10/06/2017 Backache, unspecified 05/30/2012 10/06/2017 Pyoderma 05/07/2011 05/21/2016 Pruritus 05/07/2011 05/21/2016 Xerosis cutis 03/08/2011 05/21/2016 Spasm of muscle 05/21/2010 10/06/2017 Pyoderma, unspecified 12/21/2009 05/21/2016 Excoriation 09/08/2009 05/21/2016 Routine gynecological examination 09/26/2008 11/21/2011 Overview: [facility], [facility] [place] Poor growth, affecting management of mother, antepartum condition or complication 08/15/2008 09/26/2008 Routine general medical exam ination at a health care facility 08/01/2008 11/21/2011 Overview: 08/01/08 -- establish care Routine gynecological examination 08/01/2008 08/15/2008 Overview: [facility], [facility] [employer] [place] Urinary calculus, unspecified 12/22/2007 Overview: First occurred in early 2006, again summer 2007 - total as of Dec 2007 Pain in joint, lower leg 12/11/2005 008 Hemorrhage of rectum and anus Abnormal maternal glucose tolerance, antepartum 08/01/2008 Overview: diet controlled documented as of this encounter (statuses as of 09/30/2021) [facility] History of Past illness Narrative* Problem Noted Date Resolved Date Low back pain 09/11/2013 10/06/2017 Buttock pain 09/11/2013 10/06/2017 Backache, unspecified 05/30/2012 10/06/2017 Pyoderma 05/07/2011 05/21/2016 Pruritus 05/07/2011 05/21/2016 Xerosis cutis 03/08/2011 05/21/2016 Spasm of muscle 05/21/2010 10/06/2017 Pyoderma, unspecified 12/21/2009 05/21/2016 Excoriation 09/08/2009 05/21/2016 Routine gynecological examination 09/26/2008 11/21/2011 Overview: [facility], [facility] [place] Poor growth, affecting management of mother, antepartum condition or complication 08/15/2008 09/26/2008 Routine general medical exam ination at a health care facility 08/01/2008 11/21/2011 Overview: 08/01/08 -- establish care Routine gynecological examination 08/01/2008 08/15/2008 Overview: [facility], [facility] [place] Urinary calculus, unspecified 12/22/2007 Overview: First occurred in early 2006, again summer 2007 - total as of Dec 2007 Pain in joint, lower leg 12/11/2005 008 Hemorrhage of rectum and anus Abnormal maternal glucose tolerance, antepartum 08/01/2008 Overview: diet controlled documented as of this encounter (statuses as of 10/02/2021) [facility] History of Past illness Narrative* Problem Noted Date Resolved Date Low back pain 09/11/2013 10/06/2017 Buttock pain 09/11/2013 10/06/2017 Backache, unspecified 05/30/2012 10/06/2017 Pyoderma 05/07/2011 05/21/2016 Pruritus 05/07/2011 05/21/2016 Xerosis cutis 03/08/2011 05/21/2016 Spasm of muscle 05/21/2010 10/06/2017 Pyoderma, unspecified 12/21/2009 05/21/2016 Excoriation 09/08/2009 05/21/2016 Routine gynecological examination 09/26/2008 11/21/2011 Overview: [facility], [facility] [employer] [place] Poor growth, affecting management of mother, antepartum condition or complication 08/15/2008 09/26/2008 Routine general medical exam ination at a health care facility 08/01/2008 11/21/2011 Overview: 08/01/08 -- establish care Routine gynecological examination 08/01/2008 08/15/2008 Overview: [facility], [facility] [place] Urinary calculus, unspecified 12/22/2007 Overview: First occurred in early 2006, again summer 2007 - total as of Dec 2007 Pain in joint, lower leg 12/11/2005 008 Hemorrhage of rectum and anus Abnormal maternal glucose tolerance, antepartum 08/01/2008 Overview: diet controlled documented as of this encounter (statuses as of 10/02/2021) [facility] History of Past illness Narrative* Problem Noted Date Resolved Date Low back pain 09/11/2013 10/06/2017 Buttock pain 09/11/2013 10/06/2017 Backache, unspecified 05/30/2012 10/06/2017 Pyoderma 05/07/2011 05/21/2016 Pruritus 05/07/2011 05/21/2016 Xerosis cutis 03/08/2011 05/21/2016 Spasm of muscle 05/21/2010 10/06/2017 Pyoderma, unspecified 12/21/2009 05/21/2016 Excoriation 09/08/2009 05/21/2016 Routine gynecological examination 09/26/2008 11/21/2011 Overview: [facility], [facility] [place] Poor growth, affecting management of mother, antepartum condition or complication 08/15/2008 09/26/2008 Routine general medical exam ination at a health care facility 08/01/2008 11/21/2011 Overview: 08/01/08 -- establish care Routine gynecological examination 08/01/2008 08/15/2008 Overview: [facility], [facility] [place] Urinary calculus, unspecified 12/22/2007 Overview: First occurred in early 2006, again summer total as of Dec 2007 Pain in joint, lower leg 12/11/2005 008 Hemorrhage of rectum and anus Abnormal maternal glucose tolerance, antepartum 08/01/2008 Overview: diet controlled documented as of this encounter (statuses as of 10/07/2021) [facility] History of Past illness Narrative* Problem Noted Date Resolved Date Low back pain 09/11/2013 10/06/2017 Buttock pain 09/11/2013 10/06/2017 Backache, unspecified 05/30/2012 10/06/2017 Pyoderma 05/07/2011 05/21/2016 Pruritus 05/07/2011 05/21/2016 Xerosis cutis 03/08/2011 05/21/2016 Spasm of muscle 05/21/2010 10/06/2017 Pyoderma, unspecified 12/21/2009 05/21/2016 Excoriation 09/08/2009 05/21/2016 Routine gynecological examination 09/26/2008 11/21/2011 Overview: [facility], [facility] [place] Poor growth, affecting management of mother, antepartum condition or complication 08/15/2008 09/26/2008 Routine general medical exam ination at a health care facility 08/01/2008 11/21/2011 Overview: 08/01/08 -- establish care Routine gynecological examination 08/01/2008 08/15/2008 Overview: [facility], [facility] [place] Urinary calculus, unspecified 12/22/2007 Overview: First occurred in early 2006, again summer 2007 - total as of Dec 2007 Pain in joint, lower leg 12/11/2005 008 Hemorrhage of rectum and anus Abnormal maternal glucose tolerance, antepartum 08/01/2008 Overview: diet controlled documented as of this encounter (statuses as of 10/21/2021) [facility] History of Past illness Narrative* Problem Noted Date Resolved Date Low back pain 09/11/2013 10/06/2017 Buttock pain 09/11/2013 10/06/2017 Backache, unspecified 05/30/2012 10/06/2017 Pyoderma 05/07/2011 05/21/2016 Pruritus 05/07/2011 05/21/2016 Xerosis cutis 03/08/2011 05/21/2016 Spasm of muscle 05/21/2010 10/06/2017 Pyoderma, unspecified 12/21/2009 05/21/2016 Excoriation 09/08/2009 05/21/2016 Routine gynecological examination 09/26/2008 11/21/2011 Overview: [facility], [facility] [place] Poor growth, affecting management of mother, antepartum condition or complication 08/15/2008 09/26/2008 Routine general medical exam ination at a health care facility 08/01/2008 11/21/2011 Overview: 08/01/08 -- establish care Routine gynecological examination 08/01/2008 08/15/2008 Overview: [facility], [facility] [employer] [place] Urinary calculus, unspecified 12/22/2007 Overview: First occurred in early 2006, again summer 2007 - total as of Dec 2007 Pain in joint, lower leg 12/11/2005 008 Hemorrhage of rectum and anus Abnormal maternal glucose tolerance, antepartum 08/01/2008 Overview: diet controlled documented as of this encounter (statuses as of 10/28/2021) [facility] History of Past illness Narrative* Problem Noted Date Resolved Date Low back pain 09/11/2013 10/06/2017 Buttock pain 09/11/2013 10/06/2017 Backache, unspecified 05/30/2012 10/06/2017 Pyoderma 05/07/2011 05/21/2016 Pruritus 05/07/2011 05/21/2016 Xerosis cutis 03/08/2011 05/21/2016 Spasm of muscle 05/21/2010 10/06/2017 Pyoderma, unspecified 12/21/2009 05/21/2016 Excoriation 09/08/2009 05/21/2016 Routine gynecological examination 09/26/2008 11/21/2011 Overview: [facility], [facility] [place] Poor growth, affecting management of mother, antepartum condition or complication 08/15/2008 09/26/2008 Routine general medical exam ination at a health care facility 08/01/2008 11/21/2011 Overview: 08/01/08 -- establish care Routine gynecological examination 08/01/2008 08/15/2008 Overview: [facility], [facility] [employer] [place] Urinary calculus, unspecified 12/22/2007 Overview: First occurred in early 2006, again summer 2007 - total as of Dec 2007 Pain in joint, lower leg 12/11/2005 008 Hemorrhage of rectum and anus Abnormal maternal glucose tolerance, antepartum 08/01/2008 Overview: diet controlled documented as of this encounter (statuses as of 11/11/2021) [facility] History of Past illness Narrative* Problem Noted Date Resolved Date Low back pain 09/11/2013 10/06/2017 Buttock pain 09/11/2013 10/06/2017 Backache, unspecified 05/30/2012 10/06/2017 Pyoderma 05/07/2011 05/21/2016 Pruritus 05/07/2011 05/21/2016 Xerosis cutis 03/08/2011 05/21/2016 Spasm of muscle 05/21/2010 10/06/2017 Pyoderma, unspecified 12/21/2009 05/21/2016 Excoriation 09/08/2009 05/21/2016 Routine gynecological examination 09/26/2008 11/21/2011 Overview: [facility], [facility] [employer] [place] Poor growth, affecting management of mother, antepartum condition or complication 08/15/2008 09/26/2008 Routine general medical exam ination at a health care facility 08/01/2008 11/21/2011 Overview: 08/01/08 -- establish care Routine gynecological examination 08/01/2008 08/15/2008 Overview: [facility], [facility] [employer] [place] Urinary calculus, unspecified 12/22/2007 Overview: First occurred in early 2006, again summer 2007 - total as of Dec 2007 Pain in joint, lower leg 12/11/2005 008 Hemorrhage of rectum and anus Abnormal maternal glucose tolerance, antepartum 08/01/2008 Overview: diet controlled documented as of this encounter (statuses as of 12/02/2021) [facility] History of Past illness Narrative* Problem Noted Date Resolved Date Low back pain 09/11/2013 10/06/2017 Buttock pain 09/11/2013 10/06/2017 Backache, unspecified 05/30/2012 10/06/2017 Pyoderma 05/07/2011 05/21/2016 Pruritus 05/07/2011 05/21/2016 Xerosis cutis 03/08/2011 05/21/2016 Spasm of muscle 05/21/2010 10/06/2017 Pyoderma, unspecified 12/21/2009 05/21/2016 Excoriation 09/08/2009 05/21/2016 Routine gynecological examination 09/26/2008 11/21/2011 Overview: [facility], [facility] [place] Poor growth, affecting management of mother, antepartum condition or complication 08/15/2008 09/26/2008 Routine general medical exam ination at a health care facility 08/01/2008 11/21/2011 Overview: 08/01/08 -- establish care Routine gynecological examination 08/01/2008 08/15/2008 Overview: [facility], [facility] [place] Urinary calculus, unspecified 12/22/2007 Overview: First occurred in early 2006, again summer 2007 - total as of Dec 2007 Pain in joint, lower leg 12/11/2005 008 Hemorrhage of rectum and anus Abnormal maternal glucose tolerance, antepartum 08/01/2008 Overview: diet controlled documented as of this encounter (statuses as of 12/09/2021) [facility] History of Past illness Narrative* Problem Noted Date Resolved Date Low back pain 09/11/2013 10/06/2017 Buttock pain 09/11/2013 10/06/2017 Backache, unspecified 05/30/2012 10/06/2017 Pyoderma 05/07/2011 05/21/2016 Pruritus 05/07/2011 05/21/2016 Xerosis cutis 03/08/2011 05/21/2016 Spasm of muscle 05/21/2010 10/06/2017 Pyoderma, unspecified 12/21/2009 05/21/2016 Excoriation 09/08/2009 05/21/2016 Routine gynecological examination 09/26/2008 11/21/2011 Overview: [facility], [facility] [employer] [place] Poor growth, affecting management of mother, antepartum condition or complication 08/15/2008 09/26/2008 Routine general medical exam ination at a health care facility 08/01/2008 11/21/2011 Overview: 08/01/08 -- establish care Routine gynecological examination 08/01/2008 08/15/2008 Overview: [facility], [facility] [employer] [place] Urinary calculus, unspecified 12/22/2007 Overview: First occurred in early 2006, again summer 2007 - total as of Dec 2007 Pain in joint, lower leg 12/11/2005 008 Hemorrhage of rectum and anus Abnormal maternal glucose tolerance, antepartum 08/01/2008 Overview: diet controlled documented as of this encounter (statuses as of 12/13/2021) [facility] History of Past illness Narrative* Problem Noted Date Resolved Date Low back pain 09/11/2013 10/06/2017 Buttock pain 09/11/2013 10/06/2017 Backache, unspecified 05/30/2012 10/06/2017 Pyoderma 05/07/2011 05/21/2016 Pruritus 05/07/2011 05/21/2016 Xerosis cutis 03/08/2011 05/21/2016 Spasm of muscle 05/21/2010 10/06/2017 Pyoderma, unspecified 12/21/2009 05/21/2016 Excoriation 09/08/2009 05/21/2016 Routine gynecological examination 09/26/2008 11/21/2011 Overview: [facility], [facility] [place] Poor growth, affecting management of mother, antepartum condition or complication 08/15/2008 09/26/2008 Routine general medical exam ination at a health care facility 08/01/2008 11/21/2011 Overview: 08/01/08 -- establish care Routine gynecological examination 08/01/2008 08/15/2008 Overview: [facility], [facility] [place] Urinary calculus, unspecified 12/22/2007 Overview: First occurred in early 2006, again summer 2007 - total as of Dec 2007 Pain in joint, lower leg 12/11/2005 008 Hemorrhage of rectum and anus Abnormal maternal glucose tolerance, antepartum 08/01/2008 Overview: diet controlled documented as of this encounter (statuses as of 12/23/2021) [facility] History of Past illness Narrative* Problem Noted Date Resolved Date Low back pain 09/11/2013 10/06/2017 Buttock pain 09/11/2013 10/06/2017 Backache, unspecified 05/30/2012 10/06/2017 Pyoderma 05/07/2011 05/21/2016 Pruritus 05/07/2011 05/21/2016 Xerosis cutis 03/08/2011 05/21/2016 Spasm of muscle 05/21/2010 10/06/2017 Pyoderma, unspecified 12/21/2009 05/21/2016 Excoriation 09/08/2009 05/21/2016 Routine gynecological examination 09/26/2008 11/21/2011 Overview: [facility], [facility] [place] Poor growth, affecting management of mother, antepartum condition or complication 08/15/2008 09/26/2008 Routine general medical exam ination at a health care facility 08/01/2008 11/21/2011 Overview: 08/01/08 -- establish care Routine gynecological examination 08/01/2008 08/15/2008 Overview: [facility], [facility] [place] Urinary calculus, unspecified 12/22/2007 Overview: First occurred in early 2006, again summer 2007 - total as of Dec 2007 Pain in joint, lower leg 12/11/2005 008 Hemorrhage of rectum and anus Abnormal maternal glucose tolerance, antepartum 08/01/2008 Overview: diet controlled documented as of this encounter (statuses as of 12/31/2021) [facility] History of Past illness Narrative* Problem Noted Date Resolved Date Low back pain 09/11/2013 10/06/2017 Buttock pain 09/11/2013 10/06/2017 Backache, unspecified 05/30/2012 10/06/2017 Pyoderma 05/07/2011 05/21/2016 Pruritus 05/07/2011 05/21/2016 Xerosis cutis 03/08/2011 05/21/2016 Spasm of muscle 05/21/2010 10/06/2017 Pyoderma, unspecified 12/21/2009 05/21/2016 Excoriation 09/08/2009 05/21/2016 Routine gynecological examination 09/26/2008 11/21/2011 Overview: [facility], [facility] [place] Poor growth, affecting management of mother, antepartum condition or complication 08/15/2008 09/26/2008 Routine general medical exam ination at a health care facility 08/01/2008 11/21/2011 Overview: 08/01/08 -- establish care Routine gynecological examination 08/01/2008 08/15/2008 Overview: [facility], [facility] [place] Urinary calculus, unspecified 12/22/2007 Overview: First occurred in early 2006, again summer 2007 - total as of Dec 2007 Pain in joint, lower leg 12/11/2005 008 Hemorrhage of rectum and anus Abnormal maternal glucose tolerance, antepartum 08/01/2008 Overview: diet controlled documented as of this encounter (statuses as of 02/06/2022) [facility] History of Past illness Narrative* Problem Noted Date Resolved Date Low back pain 09/11/2013 10/06/2017 Buttock pain 09/11/2013 10/06/2017 Backache, unspecified 05/30/2012 10/06/2017 Pyoderma 05/07/2011 05/21/2016 Pruritus 05/07/2011 05/21/2016 Xerosis cutis 03/08/2011 05/21/2016 Spasm of muscle 05/21/2010 10/06/2017 Pyoderma, unspecified 12/21/2009 05/21/2016 Excoriation 09/08/2009 05/21/2016 Routine gynecological examination 09/26/2008 11/21/2011 Overview: [facility], [facility] [place] Poor growth, affecting management of mother, antepartum condition or complication 08/15/2008 09/26/2008 Routine general medical exam ination at a health care facility 08/01/2008 11/21/2011 Overview: 08/01/08 -- establish care Routine gynecological examination 08/01/2008 08/15/2008 Overview: [facility], [facility] [employer] [place] Urinary calculus, unspecified 12/22/2007 Overview: First occurred in early 2006, again summer 2007 - 4 total as of Dec 2007 Pain in joint, lower leg 12/11/2005 008 Hemorrhage of rectum and anus Abnormal maternal glucose tolerance, antepartum 08/01/2008 Overview: diet controlled documented as of this encounter (statuses as of 02/09/2022) [facility] History of Past illness Narrative* Problem Noted Date Resolved Date Low back pain 09/11/2013 10/06/2017 Buttock pain 09/11/2013 10/06/2017 Backache, unspecified 05/30/2012 10/06/2017 Pyoderma 05/07/2011 05/21/2016 Pruritus 05/07/2011 05/21/2016 Xerosis cutis 03/08/2011 05/21/2016 Spasm of muscle 05/21/2010 10/06/2017 Pyoderma, unspecified 12/21/2009 05/21/2016 Excoriation 09/08/2009 05/21/2016 Routine gynecological examination 09/26/2008 11/21/2011 Overview: [facility], [facility] [place] Poor growth, affecting management of mother, antepartum condition or complication 08/15/2008 09/26/2008 Routine general medical exam ination at a health care facility 08/01/2008 11/21/2011 Overview: 08/01/08 -- establish care Routine gynecological examination 08/01/2008 08/15/2008 Overview: [facility], [facility] [place] Urinary calculus, unspecified 12/22/2007 Overview: First occurred in early 2006, again summer 2007 - total as of Dec 2007 Pain in joint, lower leg 12/11/2005 008 Hemorrhage of rectum and anus Abnormal maternal glucose tolerance, antepartum 08/01/2008 Overview: diet controlled documented as of this encounter (statuses as of 02/17/2022) [facility] History of Past illness Narrative* Problem Noted Date Resolved Date Low back pain 09/11/2013 10/06/2017 Buttock pain 09/11/2013 10/06/2017 Backache, unspecified 05/30/2012 10/06/2017 Pyoderma 05/07/2011 05/21/2016 Pruritus 05/07/2011 05/21/2016 Xerosis cutis 03/08/2011 05/21/2016 Spasm of muscle 05/21/2010 10/06/2017 Pyoderma, unspecified 12/21/2009 05/21/2016 Excoriation 09/08/2009 05/21/2016 Routine gynecological examination 09/26/2008 11/21/2011 Overview: [facility], [facility] [place] Poor growth, affecting management of mother, antepartum condition or complication 08/15/2008 09/26/2008 Routine general medical exam ination at a health care facility 08/01/2008 11/21/2011 Overview: 08/01/08 -- establish care Routine gynecological examination 08/01/2008 08/15/2008 Overview: [facility], [facility] [place] Urinary calculus, unspecified 12/22/2007 Overview: First occurred in early 2006, again summer 2007 - total as of Dec 2007 Pain in joint, lower leg 12/11/2005 008 Hemorrhage of rectum and anus Abnormal maternal glucose tolerance, antepartum 08/01/2008 Overview: diet controlled documented as of this encounter (statuses as of 02/24/2022) [facility] History of Past illness Narrative* Problem Noted Date Resolved Date Low back pain 09/11/2013 10/06/2017 Buttock pain 09/11/2013 10/06/2017 Backache, unspecified 05/30/2012 10/06/2017 Pyoderma 05/07/2011 05/21/2016 Pruritus 05/07/2011 05/21/2016 Xerosis cutis 03/08/2011 05/21/2016 Spasm of muscle 05/21/2010 10/06/2017 Pyoderma, unspecified 12/21/2009 05/21/2016 Excoriation 09/08/2009 05/21/2016 Routine gynecological examination 09/26/2008 11/21/2011 Overview: [facility], [facility] [place] Poor growth, affecting management of mother, antepartum condition or complication 08/15/2008 09/26/2008 Routine general medical exam ination at a health care facility 08/01/2008 11/21/2011 Overview: 08/01/08 -- establish care Routine gynecological examination 08/01/2008 08/15/2008 Overview: [facility], [facility] [place] Urinary calculus, unspecified 12/22/2007 Overview: First occurred in early 2006, again summer 2007 - total as of Dec 2007 Pain in joint, lower leg 12/11/2005 008 Hemorrhage of rectum and anus Abnormal maternal glucose tolerance, antepartum 08/01/2008 Overview: diet controlled documented as of this encounter (statuses as of 02/24/2022) [facility] History of Past illness Narrative* Problem Noted Date Resolved Date Low back pain 09/11/2013 10/06/2017 Buttock pain 09/11/2013 10/06/2017 Backache, unspecified 05/30/2012 10/06/2017 Pyoderma 05/07/2011 05/21/2016 Pruritus 05/07/2011 05/21/2016 Xerosis cutis 03/08/2011 05/21/2016 Spasm of muscle 05/21/2010 10/06/2017 Pyoderma, unspecified 12/21/2009 05/21/2016 Excoriation 09/08/2009 05/21/2016 Routine gynecological examination 09/26/2008 11/21/2011 Overview: [facility], [facility] [place] Poor growth, affecting management of mother, antepartum condition or complication 08/15/2008 09/26/2008 Routine general medical exam ination at a health care facility 08/01/2008 11/21/2011 Overview: 08/01/08 -- establish care Routine gynecological examination 08/01/2008 08/15/2008 Overview: [facility], [facility] [place] Urinary calculus, unspecified 12/22/2007 Overview: First occurred in early 2006, again summer 2007 - total as of Dec 2007 Pain in joint, lower leg 12/11/2005 008 Hemorrhage of rectum and anus Abnormal maternal glucose tolerance, antepartum 08/01/2008 Overview: diet controlled documented as of this encounter (statuses as of 02/25/2022) [facility] History of Past illness Narrative* Problem Noted Date Resolved Date Low back pain 09/11/2013 10/06/2017 Buttock pain 09/11/2013 10/06/2017 Backache, unspecified 05/30/2012 10/06/2017 Pyoderma 05/07/2011 05/21/2016 Pruritus 05/07/2011 05/21/2016 Xerosis cutis 03/08/2011 05/21/2016 Spasm of muscle 05/21/2010 10/06/2017 Pyoderma, unspecified 12/21/2009 05/21/2016 Excoriation 09/08/2009 05/21/2016 Routine gynecological examination 09/26/2008 11/21/2011 Overview: [facility], [facility] [place] Poor growth, affecting management of mother, antepartum condition or complication 08/15/2008 09/26/2008 Routine general medical exam ination at a health care facility 08/01/2008 11/21/2011 Overview: 08/01/08 -- establish care Routine gynecological examination 08/01/2008 08/15/2008 Overview: [facility], [facility] [place] Urinary calculus, unspecified 12/22/2007 Overview: First occurred in early 2006, again summer 2007 - total as of Dec 2007 Pain in joint, lower leg 12/11/2005 008 Hemorrhage of rectum and anus Abnormal maternal glucose tolerance, antepartum 08/01/2008 Overview: diet controlled documented as of this encounter (statuses as of 03/02/2022) [facility] History of Past illness Narrative* Problem Noted Date Resolved Date Low back pain 09/11/2013 10/06/2017 Buttock pain 09/11/2013 10/06/2017 Backache, unspecified 05/30/2012 10/06/2017 Pyoderma 05/07/2011 05/21/2016 Pruritus 05/07/2011 05/21/2016 Xerosis cutis 03/08/2011 05/21/2016 Spasm of muscle 05/21/2010 10/06/2017 Pyoderma, unspecified 12/21/2009 05/21/2016 Excoriation 09/08/2009 05/21/2016 Routine gynecological examination 09/26/2008 11/21/2011 Overview: [facility], [facility] [place] Poor growth, affecting management of mother, antepartum condition or complication 08/15/2008 09/26/2008 Routine general medical exam ination at a health care facility 08/01/2008 11/21/2011 Overview: 08/01/08 -- establish care Routine gynecological examination 08/01/2008 08/15/2008 Overview: [facility], [facility] [place] Urinary calculus, unspecified 12/22/2007 Overview: First occurred in early 2006, again summer 2007 - total as of Dec 2007 Pain in joint, lower leg 12/11/2005 008 Hemorrhage of rectum and anus Abnormal maternal glucose tolerance, antepartum 08/01/2008 Overview: diet controlled documented as of this encounter (statuses as of 03/13/2022) [facility] History of Past illness Narrative* Problem Noted Date Resolved Date Low back pain 09/11/2013 10/06/2017 Buttock pain 09/11/2013 10/06/2017 Backache, unspecified 05/30/2012 10/06/2017 Pyoderma 05/07/2011 05/21/2016 Pruritus 05/07/2011 05/21/2016 Xerosis cutis 03/08/2011 05/21/2016 Spasm of muscle 05/21/2010 10/06/2017 Pyoderma, unspecified 12/21/2009 05/21/2016 Excoriation 09/08/2009 05/21/2016 Routine gynecological examination 09/26/2008 11/21/2011 Overview: [facility], [facility] [place] Poor growth, affecting management of mother, antepartum condition or complication 08/15/2008 09/26/2008 Routine general medical exam ination at a health care facility 08/01/2008 11/21/2011 Overview: 08/01/08 -- establish care Routine gynecological examination 08/01/2008 08/15/2008 Overview: [facility], [facility] [place] Urinary calculus, unspecified 12/22/2007 Overview: First occurred in early 2006, again summer 2007 - total as of Dec 2007 Pain in joint, lower leg 12/11/2005 008 Hemorrhage of rectum and anus Abnormal maternal glucose tolerance, antepartum 08/01/2008 Overview: diet controlled documented as of this encounter (statuses as of 03/13/2022) [facility] History of Past illness Narrative* Problem Noted Date Resolved Date Low back pain 09/11/2013 10/06/2017 Buttock pain 09/11/2013 10/06/2017 Backache, unspecified 05/30/2012 10/06/2017 Pyoderma 05/07/2011 05/21/2016 Pruritus 05/07/2011 05/21/2016 Xerosis cutis 03/08/2011 05/21/2016 Spasm of muscle 05/21/2010 10/06/2017 Pyoderma, unspecified 12/21/2009 05/21/2016 Excoriation 09/08/2009 05/21/2016 Routine gynecological examination 09/26/2008 11/21/2011 Overview: [facility], [facility] [place] Poor growth, affecting management of mother, antepartum condition or complication 08/15/2008 09/26/2008 Routine general medical exam ination at a health care facility 08/01/2008 11/21/2011 Overview: 08/01/08 -- establish care Routine gynecological examination 08/01/2008 08/15/2008 Overview: [facility], [facility] [employer] [place] Urinary calculus, unspecified 12/22/2007 Overview: First occurred in early 2006, again summer 2007 - total as of Dec 2007 Pain in joint, lower leg 12/11/2005 008 Hemorrhage of rectum and anus Abnormal maternal glucose tolerance, antepartum 08/01/2008 Overview: diet controlled documented as of this encounter (statuses as of 03/16/2022) [facility] History of Past illness Narrative* Problem Noted Date Resolved Date Low back pain 09/11/2013 10/06/2017 Buttock pain 09/11/2013 10/06/2017 Backache, unspecified 05/30/2012 10/06/2017 Pyoderma 05/07/2011 05/21/2016 Pruritus 05/07/2011 05/21/2016 Xerosis cutis 03/08/2011 05/21/2016 Spasm of muscle 05/21/2010 10/06/2017 Pyoderma, unspecified 12/21/2009 05/21/2016 Excoriation 09/08/2009 05/21/2016 Routine gynecological examination 09/26/2008 11/21/2011 Overview: [facility], [facility] [place] Poor growth, affecting management of mother, antepartum condition or complication 08/15/2008 09/26/2008 Routine general medical exam ination at a health care facility 08/01/2008 11/21/2011 Overview: 08/01/08 -- establish care Routine gynecological examination 08/01/2008 08/15/2008 Overview: [facility], [facility] [place] Urinary calculus, unspecified 12/22/2007 Overview: First occurred in early 2006, again summer 2007 - total as of Dec 2007 Pain in joint, lower leg 12/11/2005 008 Hemorrhage of rectum and anus Abnormal maternal glucose tolerance, antepartum 08/01/2008 Overview: diet controlled documented as of this encounter (statuses as of 04/01/2022) [facility] History of Past illness Narrative* Problem Noted Date Resolved Date Low back pain 09/11/2013 10/06/2017 Buttock pain 09/11/2013 10/06/2017 Backache, unspecified 05/30/2012 10/06/2017 Pyoderma 05/07/2011 05/21/2016 Pruritus 05/07/2011 05/21/2016 Xerosis cutis 03/08/2011 05/21/2016 Spasm of muscle 05/21/2010 10/06/2017 Pyoderma, unspecified 12/21/2009 05/21/2016 Excoriation 09/08/2009 05/21/2016 Routine gynecological examination 09/26/2008 11/21/2011 Overview: [facility], [facility] [place] Poor growth, affecting management of mother, antepartum condition or complication 08/15/2008 09/26/2008 Routine general medical exam ination at a health care facility 08/01/2008 11/21/2011 Overview: 08/01/08 -- establish care Routine gynecological examination 08/01/2008 08/15/2008 Overview: [facility], [facility] [place] Urinary calculus, unspecified 12/22/2007 Overview: First occurred in early 2006, again summer 2007 - total as of Dec 2007 Pain in joint, lower leg 12/11/2005 008 Hemorrhage of rectum and anus Abnormal maternal glucose tolerance, antepartum 08/01/2008 Overview: diet controlled documented as of this encounter (statuses as of 04/01/2022) [facility] History of Past illness Narrative* Problem Noted Date Resolved Date Low back pain 09/11/2013 10/06/2017 Buttock pain 09/11/2013 10/06/2017 Backache, unspecified 05/30/2012 10/06/2017 Pyoderma 05/07/2011 05/21/2016 Pruritus 05/07/2011 05/21/2016 Xerosis cutis 03/08/2011 05/21/2016 Spasm of muscle 05/21/2010 10/06/2017 Pyoderma, unspecified 12/21/2009 05/21/2016 Excoriation 09/08/2009 05/21/2016 Routine gynecological examination 09/26/2008 11/21/2011 Overview: [facility], [facility] [place] Poor growth, affecting management of mother, antepartum condition or complication 08/15/2008 09/26/2008 Routine general medical exam ination at a health care facility 08/01/2008 11/21/2011 Overview: 08/01/08 -- establish care Routine gynecological examination 08/01/2008 08/15/2008 Overview: [facility], [facility] [place] Urinary calculus, unspecified 12/22/2007 Overview: First occurred in early 2006, again summer 2007 - total as of Dec 2007 Pain in joint, lower leg 12/11/2005 008 Hemorrhage of rectum and anus Abnormal maternal glucose tolerance, antepartum 08/01/2008 Overview: diet controlled documented as of this encounter (statuses as of 04/07/2022) [facility] History of Past illness Narrative* Problem Noted Date Resolved Date Low back pain 09/11/2013 10/06/2017 Buttock pain 09/11/2013 10/06/2017 Backache, unspecified 05/30/2012 10/06/2017 Pyoderma 05/07/2011 05/21/2016 Pruritus 05/07/2011 05/21/2016 Xerosis cutis 03/08/2011 05/21/2016 Spasm of muscle 05/21/2010 10/06/2017 Pyoderma, unspecified 12/21/2009 05/21/2016 Excoriation 09/08/2009 05/21/2016 Routine gynecological examination 09/26/2008 11/21/2011 Overview: [facility], [facility] [place] Poor growth, affecting management of mother, antepartum condition or complication 08/15/2008 09/26/2008 Routine general medical exam ination at a health care facility 08/01/2008 11/21/2011 Overview: 08/01/08 -- establish care Routine gynecological examination 08/01/2008 08/15/2008 Overview: [facility], [facility] [place] Urinary calculus, unspecified 12/22/2007 Overview: First occurred in early 2006, again summer 2007 - total as of Dec 2007 Pain in joint, lower leg 12/11/2005 008 Hemorrhage of rectum and anus Abnormal maternal glucose tolerance, antepartum 08/01/2008 Overview: diet controlled documented as of this encounter (statuses as of 04/10/2022) [facility] History of Past illness Narrative* Problem Noted Date Resolved Date Low back pain 09/11/2013 10/06/2017 Buttock pain 09/11/2013 10/06/2017 Backache, unspecified 05/30/2012 10/06/2017 Pyoderma 05/07/2011 05/21/2016 Pruritus 05/07/2011 05/21/2016 Xerosis cutis 03/08/2011 05/21/2016 Spasm of muscle 05/21/2010 10/06/2017 Pyoderma, unspecified 12/21/2009 05/21/2016 Excoriation 09/08/2009 05/21/2016 Routine gynecological examination 09/26/2008 11/21/2011 Overview: [facility], [facility] [place] Poor growth, affecting management of mother, antepartum condition or complication 08/15/2008 09/26/2008 Routine general medical exam ination at a health care facility 08/01/2008 11/21/2011 Overview: 08/01/08 -- establish care Routine gynecological examination 08/01/2008 08/15/2008 Overview: [facility], [facility] [place] Urinary calculus, unspecified 12/22/2007 Overview: First occurred in early 2006, again summer 2007 - total as of Dec 2007 Pain in joint, lower leg 12/11/2005 008 Hemorrhage of rectum and anus Abnormal maternal glucose tolerance, antepartum 08/01/2008 Overview: diet controlled documented as of this encounter (statuses as of 04/10/2022) [facility] History of Past illness Narrative* Problem Noted Date Resolved Date Low back pain 09/11/2013 10/06/2017 Buttock pain 09/11/2013 10/06/2017 Backache, unspecified 05/30/2012 10/06/2017 Pyoderma 05/07/2011 05/21/2016 Pruritus 05/07/2011 05/21/2016 Xerosis cutis 03/08/2011 05/21/2016 Spasm of muscle 05/21/2010 10/06/2017 Pyoderma, unspecified 12/21/2009 05/21/2016 Excoriation 09/08/2009 05/21/2016 Routine gynecological examination 09/26/2008 11/21/2011 Overview: [facility], [facility] [place] Poor growth, affecting management of mother, antepartum condition or complication 08/15/2008 09/26/2008 Routine general medical exam ination at a health care facility 08/01/2008 11/21/2011 Overview: 08/01/08 -- establish care Routine gynecological examination 08/01/2008 08/15/2008 Overview: [facility], [facility] [place] Urinary calculus, unspecified 12/22/2007 Overview: First occurred in early 2006, again summer total as of Dec 2007 Pain in joint, lower leg 12/11/2005 10/28/2 008 Hemorrhage of rectum and anus Abnormal maternal glucose tolerance, antepartum 08/01/2008 Overview: diet controlled documented as of this encounter (statuses as of 04/14/2022) [facility] History of Past illness Narrative* Problem Noted Date Resolved Date Low back pain 09/11/2013 10/06/2017 Buttock pain 09/11/2013 10/06/2017 Backache, unspecified 05/30/2012 10/06/2017 Pyoderma 05/07/2011 05/21/2016 Pruritus 05/07/2011 05/21/2016 Xerosis cutis 03/08/2011 05/21/2016 Spasm of muscle 05/21/2010 10/06/2017 Pyoderma, unspecified 12/21/2009 05/21/2016 Excoriation 09/08/2009 05/21/2016 Routine gynecological examination 09/26/2008 11/21/2011 Overview: [facility], [facility] [place] Poor growth, affecting management of mother, antepartum condition or complication 08/15/2008 09/26/2008 Routine general medical exam ination at a health care facility 08/01/2008 11/21/2011 Overview: 08/01/08 -- establish care Routine gynecological examination 08/01/2008 08/15/2008 Overview: [facility], [facility] [place] Urinary calculus, unspecified 12/22/2007 Overview: First occurred in early 2006, again summer 2007 - total as of Dec 2007 Pain in joint, lower leg 12/11/2005 008 Hemorrhage of rectum and anus Abnormal maternal glucose tolerance, antepartum 08/01/2008 Overview: diet controlled documented as of this encounter (statuses as of 04/21/2022) [facility] History of Past illness Narrative* Problem Noted Date Resolved Date Low back pain 09/11/2013 10/06/2017 Buttock pain 09/11/2013 10/06/2017 Backache, unspecified 05/30/2012 10/06/2017 Pyoderma 05/07/2011 05/21/2016 Pruritus 05/07/2011 05/21/2016 Xerosis cutis 03/08/2011 05/21/2016 Spasm of muscle 05/21/2010 10/06/2017 Pyoderma, unspecified 12/21/2009 05/21/2016 Excoriation 09/08/2009 05/21/2016 Routine gynecological examination 09/26/2008 11/21/2011 Overview: [facility], [facility] [place] Poor growth, affecting management of mother, antepartum condition or complication 08/15/2008 09/26/2008 Routine general medical exam ination at a health care facility 08/01/2008 11/21/2011 Overview: 08/01/08 -- establish care Routine gynecological examination 08/01/2008 08/15/2008 Overview: [facility], [facility] [place] Urinary calculus, unspecified 12/22/2007 Overview: First occurred in early 2006, again summer 2007 - total as of Dec 2007 Pain in joint, lower leg 12/11/2005 008 Hemorrhage of rectum and anus Abnormal maternal glucose tolerance, antepartum 08/01/2008 Overview: diet controlled documented as of this encounter (statuses as of 04/22/2022) [facility] History of Past illness Narrative* Problem Noted Date Resolved Date Low back pain 09/11/2013 10/06/2017 Buttock pain 09/11/2013 10/06/2017 Backache, unspecified 05/30/2012 10/06/2017 Pyoderma 05/07/2011 05/21/2016 Pruritus 05/07/2011 05/21/2016 Xerosis cutis 03/08/2011 05/21/2016 Spasm of muscle 05/21/2010 10/06/2017 Pyoderma, unspecified 12/21/2009 05/21/2016 Excoriation 09/08/2009 05/21/2016 Routine gynecological examination 09/26/2008 11/21/2011 Overview: [facility], [facility] [place] Poor growth, affecting management of mother, antepartum condition or complication 08/15/2008 09/26/2008 Routine general medical exam ination at a health care facility 08/01/2008 11/21/2011 Overview: 08/01/08 -- establish care Routine gynecological examination 08/01/2008 08/15/2008 Overview: [facility], [facility] [place] Urinary calculus, unspecified 12/22/2007 Overview: First occurred in early 2006, again summer 2007 - total as of Dec 2007 Pain in joint, lower leg 12/11/2005 008 Hemorrhage of rectum and anus Abnormal maternal glucose tolerance, antepartum 08/01/2008 Overview: diet controlled documented as of this encounter (statuses as of 05/31/2022) [facility] History of Past illness Narrative* Problem Noted Date Resolved Date Low back pain 09/11/2013 10/06/2017 Buttock pain 09/11/2013 10/06/2017 Backache, unspecified 05/30/2012 10/06/2017 Pyoderma 05/07/2011 05/21/2016 Pruritus 05/07/2011 05/21/2016 Xerosis cutis 03/08/2011 05/21/2016 Spasm of muscle 05/21/2010 10/06/2017 Pyoderma, unspecified 12/21/2009 05/21/2016 Excoriation 09/08/2009 05/21/2016 Routine gynecological examination 09/26/2008 11/21/2011 Overview: [facility] [place] Poor growth, affecting management of mother, antepartum condition or complication 08/15/2008 09/26/2008 Routine general medical exam ination at a health care facility 08/01/2008 11/21/2011 Overview: 08/01/08 -- establish care Routine gynecological examination 08/01/2008 08/15/2008 Overview: [facility], [facility] [place] Urinary calculus, unspecified 12/22/2007 Overview: First occurred in early 2006, again summer total as of Dec 2007 Pain in joint, lower leg 12/11/2005 008 Hemorrhage of rectum and anus Abnormal maternal glucose tolerance, antepartum 08/01/2008 Overview: diet controlled documented as of this encounter (statuses as of 06/11/2022) [facility] History of Past illness Narrative* Problem Noted Date Resolved Date Low back pain 09/11/2013 10/06/2017 Buttock pain 09/11/2013 10/06/2017 Backache, unspecified 05/30/2012 10/06/2017 Pyoderma 05/07/2011 05/21/2016 Pruritus 05/07/2011 05/21/2016 Xerosis cutis 03/08/2011 05/21/2016 Spasm of muscle 05/21/2010 10/06/2017 Pyoderma, unspecified 12/21/2009 05/21/2016 Excoriation 09/08/2009 05/21/2016 Routine gynecological examination 09/26/2008 11/21/2011 Overview: [facility], [facility] [place] Poor growth, affecting management of mother, antepartum condition or complication 08/15/2008 09/26/2008 Routine general medical exam ination at a health care facility 08/01/2008 11/21/2011 Overview: 08/01/08 -- establish care Routine gynecological examination 08/01/2008 08/15/2008 Overview: [facility], [facility] [place] Urinary calculus, unspecified 12/22/2007 Overview: First occurred in early 2006, again summer total as of Dec 2007 Pain in joint, lower leg 12/11/2005 008 Hemorrhage of rectum and anus Abnormal maternal glucose tolerance, antepartum 08/01/2008 Overview: diet controlled documented as of this encounter (statuses as of 09/02/2022) [facility] History of Past illness Narrative* Problem Noted Date Resolved Date Low back pain 09/11/2013 10/06/2017 Buttock pain 09/11/2013 10/06/2017 Backache, unspecified 05/30/2012 10/06/2017 Pyoderma 05/07/2011 05/21/2016 Pruritus 05/07/2011 05/21/2016 Xerosis cutis 03/08/2011 05/21/2016 Spasm of muscle 05/21/2010 10/06/2017 Pyoderma, unspecified 12/21/2009 05/21/2016 Excoriation 09/08/2009 05/21/2016 Routine gynecological examination 09/26/2008 11/21/2011 Overview: [facility], [facility] [place] Poor growth, affecting management of mother, antepartum condition or complication 08/15/2008 09/26/2008 Routine general medical exam ination at a health care facility 08/01/2008 11/21/2011 Overview: 08/01/08 -- establish care Routine gynecological examination 08/01/2008 08/15/2008 Overview: [facility], [facility] [place] Urinary calculus, unspecified 12/22/2007 Overview: First occurred in early 2006, again summer 2007 - total as of Dec 2007 Pain in joint, lower leg 12/11/2005 008 Hemorrhage of rectum and anus Abnormal maternal glucose tolerance, antepartum 08/01/2008 Overview: diet controlled documented as of this encounter (statuses as of 09/10/2022) [facility] History of Past illness Narrative* Problem Noted Date Resolved Date Low back pain 09/11/2013 10/06/2017 Buttock pain 09/11/2013 10/06/2017 Backache, unspecified 05/30/2012 10/06/2017 Pyoderma 05/07/2011 05/21/2016 Pruritus 05/07/2011 05/21/2016 Xerosis cutis 03/08/2011 05/21/2016 Spasm of muscle 05/21/2010 10/06/2017 Pyoderma, unspecified 12/21/2009 05/21/2016 Excoriation 09/08/2009 05/21/2016 Routine gynecological examination 09/26/2008 11/21/2011 Overview: [facility], [facility] [place] Poor growth, affecting management of mother, antepartum condition or complication 08/15/2008 09/26/2008 Routine general medical exam ination at a health care facility 08/01/2008 11/21/2011 Overview: 08/01/08 -- establish care Routine gynecological examination 08/01/2008 08/15/2008 Overview: [facility], [facility] [place] Urinary calculus, unspecified 12/22/2007 Overview: First occurred in early 2006, again summer 2007 - total as of Dec 2007 Pain in joint, lower leg 12/11/2005 008 Hemorrhage of rectum and anus Abnormal maternal glucose tolerance, antepartum 08/01/2008 Overview: diet controlled documented as of this encounter (statuses as of 09/10/2022) [facility] History of Past illness Narrative* Problem Noted Date Resolved Date Low back pain 09/11/2013 10/06/2017 Buttock pain 09/11/2013 10/06/2017 Backache, unspecified 05/30/2012 10/06/2017 Pyoderma 05/07/2011 05/21/2016 Pruritus 05/07/2011 05/21/2016 Xerosis cutis 03/08/2011 05/21/2016 Spasm of muscle 05/21/2010 10/06/2017 Pyoderma, unspecified 12/21/2009 05/21/2016 Excoriation 09/08/2009 05/21/2016 Routine gynecological examination 09/26/2008 11/21/2011 Overview: [facility], [facility] [place] Poor growth, affecting management of mother, antepartum condition or complication 08/15/2008 09/26/2008 Routine general medical exam ination at a health care facility 08/01/2008 11/21/2011 Overview: 08/01/08 -- establish care Routine gynecological examination 08/01/2008 08/15/2008 Overview: [facility], [facility] [place] Urinary calculus, unspecified 12/22/2007 Overview: First occurred in early 2006, again summer 2007 - total as of Dec 2007 Pain in joint, lower leg 12/11/2005 008 Hemorrhage of rectum and anus Abnormal maternal glucose tolerance, antepartum 08/01/2008 Overview: diet controlled documented as of this encounter (statuses as of 09/11/2022) [facility] History of Past illness Narrative* Problem Noted Date Resolved Date Low back pain 09/11/2013 10/06/2017 Buttock pain 09/11/2013 10/06/2017 Backache, unspecified 05/30/2012 10/06/2017 Pyoderma 05/07/2011 05/21/2016 Pruritus 05/07/2011 05/21/2016 Xerosis cutis 03/08/2011 05/21/2016 Spasm of muscle 05/21/2010 10/06/2017 Pyoderma, unspecified 12/21/2009 05/21/2016 Excoriation 09/08/2009 05/21/2016 Routine gynecological examination 09/26/2008 11/21/2011 Overview: [facility], [facility] [place] Poor growth, affecting management of mother, antepartum condition or complication 08/15/2008 09/26/2008 Routine general medical exam ination at a health care facility 08/01/2008 11/21/2011 Overview: 08/01/08 -- establish care Routine gynecological examination 08/01/2008 08/15/2008 Overview: [facility], [facility] [place] Urinary calculus, unspecified 12/22/2007 Overview: First occurred in early 2006, again summer 2007 - total as of Dec 2007 Pain in joint, lower leg 12/11/2005 008 Hemorrhage of rectum and anus Abnormal maternal glucose tolerance, antepartum 08/01/2008 Overview: diet controlled documented as of this encounter (statuses as of 09/16/2022) [facility] History of Past illness Narrative* Problem Noted Date Resolved Date Low back pain 09/11/2013 10/06/2017 Buttock pain 09/11/2013 10/06/2017 Backache, unspecified 05/30/2012 10/06/2017 Pyoderma 05/07/2011 05/21/2016 Pruritus 05/07/2011 05/21/2016 Xerosis cutis 03/08/2011 05/21/2016 Spasm of muscle 05/21/2010 10/06/2017 Pyoderma, unspecified 12/21/2009 05/21/2016 Excoriation 09/08/2009 05/21/2016 Routine gynecological examination 09/26/2008 11/21/2011 Overview: [facility], [facility] [place] Poor growth, affecting management of mother, antepartum condition or complication 08/15/2008 09/26/2008 Routine general medical exam ination at a health care facility 08/01/2008 11/21/2011 Overview: 08/01/08 -- establish care Routine gynecological examination 08/01/2008 08/15/2008 Overview: [facility], [facility] [place] Urinary calculus, unspecified 12/22/2007 Overview: First occurred in early 2006, again summer 2007 - total as of Dec 2007 Pain in joint, lower leg 12/11/2005 008 Hemorrhage of rectum and anus Abnormal maternal glucose tolerance, antepartum 08/01/2008 Overview: diet controlled documented as of this encounter (statuses as of 09/30/2022) [facility] History of Past illness Narrative* Problem Noted Date Diagnosed Date Resolved Date Low back pain 09/11/2013 10/06/2017 Buttock pain 09/11/2013 10/06/2017 Backache, unspecified 05/30/20122017 Pyoderma 05/07/2011 05/21/2016 Pruritus 05/07/2011 05/21/2016 Xerosis cutis 03/08/2011 05/21/2016 Spasm of muscle 05/21/2010 10/06/2017 Pyoderma, unspecified 12/21/20092016 Excoriation 09/08/2009 05/21/2016 Routine gynecological examination 09/26/2008 11/21/2011 Overview: [facility], [facility] [place] Poor growth, affecting management of mother, antepartum condition or complication 08/15/2008 09/26/2008 Routine general medical exam ination at a health care facility 08/01/2008 11/21/2011 Overview: 08/01/08 -- establish care Routine gynecological examination 08/01/2008 08/15/2008 Overview: [facility], [facility] [place] Urinary calculus, unspecified 12/22/2007 10/06/2017 Overview: First occurred in early 2006, again summer 2007 - total as of Dec 2007 Pain in joint, lower leg 12/11/2005 Hemorrhage of rectum and anus 08/01/2008 Abnormal maternal glucose to lerance, antepartum 08/01/2008 Overview: diet controlled documented as of this encounter (statuses as of 10/09/2022) [facility] History of Past illness Narrative* Problem Noted Date Diagnosed Date Resolved Date Low back pain 09/11/2013 10/06/2017 Buttock pain 09/11/2013 10/06/2017 Backache, unspecified 05/30/20122017 Pyoderma 05/07/2011 05/21/2016 Pruritus 05/07/2011 05/21/2016 Xerosis cutis 03/08/2011 05/21/2016 Spasm of muscle 05/21/2010 10/06/2017 Pyoderma, unspecified 12/21/20092016 Excoriation 09/08/2009 05/21/2016 Routine gynecological examination 09/26/2008 11/21/2011 Overview: [facility], [facility] [place] Poor growth, affecting management of mother, antepartum condition or complication 08/15/2008 09/26/2008 Routine general medical exam ination at a health care facility 08/01/2008 11/21/2011 Overview: 08/01/08 -- establish care Routine gynecological examination 08/01/2008 08/15/2008 Overview: [facility], [facility] [place] Urinary calculus, unspecified 12/22/2007 10/06/2017 Overview: First occurred in early 2006, again summer 2007 - total as of Dec 2007 Pain in joint, lower leg 12/11/2005 Hemorrhage of rectum and anus 08/01/2008 Abnormal maternal glucose to lerance, antepartum 08/01/2008 Overview: diet controlled documented as of this encounter (statuses as of 11/12/2022) [facility] History of Past illness Narrative* Problem Noted Date Diagnosed Date Resolved Date Low back pain 09/11/2013 10/06/2017 Buttock pain 09/11/2013 10/06/2017 Backache, unspecified 05/30/20122017 Pyoderma 05/07/2011 05/21/2016 Pruritus 05/07/2011 05/21/2016 Xerosis cutis 03/08/2011 05/21/2016 Spasm of muscle 05/21/2010 10/06/2017 Pyoderma, unspecified 12/21/20092016 Excoriation 09/08/2009 05/21/2016 Routine gynecological examination 09/26/2008 11/21/2011 Overview: [facility], [facility] [place] Poor growth, affecting management of mother, antepartum condition or complication 08/15/2008 09/26/2008 Routine general medical exam ination at a health care facility 08/01/2008 11/21/2011 Overview: 08/01/08 -- establish care Routine gynecological examination 08/01/2008 08/15/2008 Overview: [facility], [facility] [place] Urinary calculus, unspecified 12/22/2007 10/06/2017 Overview: First occurred in early 2006, again summer 2007 - total as of Dec 2007 Pain in joint, lower leg 12/11/2005 Hemorrhage of rectum and anus 08/01/2008 Abnormal maternal glucose to lerance, antepartum 08/01/2008 Overview: diet controlled documented as of this encounter (statuses as of 11/14/2022) [facility] History of Past illness Narrative* Problem Noted Date Diagnosed Date Resolved Date Low back pain 09/11/2013 10/06/2017 Buttock pain 09/11/2013 10/06/2017 Backache, unspecified 05/30/20122017 Pyoderma 05/07/2011 05/21/2016 Pruritus 05/07/2011 05/21/2016 Xerosis cutis 03/08/2011 05/21/2016 Spasm of muscle 05/21/2010 10/06/2017 Pyoderma, unspecified 12/21/20092016 Excoriation 09/08/2009 05/21/2016 Routine gynecological examination 09/26/2008 11/21/2011 Overview: [facility], [facility] [place] Poor growth, affecting management of mother, antepartum condition or complication 08/15/2008 09/26/2008 Routine general medical exam ination at a health care facility 08/01/2008 11/21/2011 Overview: 08/01/08 -- establish care Routine gynecological examination 08/01/2008 08/15/2008 Overview: [facility], [facility] [place] Urinary calculus, unspecified 12/22/2007 10/06/2017 Overview: First occurred in early 2006, again summer 2007 - total as of Dec 2007 Pain in joint, lower leg 12/11/2005 Hemorrhage of rectum and anus 08/01/2008 Abnormal maternal glucose to lerance, antepartum 08/01/2008 Overview: diet controlled documented as of this encounter (statuses as of 11/27/2022) [facility] History of Past illness Narrative* Problem Noted Date Diagnosed Date Resolved Date Low back pain 09/11/2013 10/06/2017 Buttock pain 09/11/2013 10/06/2017 Backache, unspecified 05/30/20122017 Pyoderma 05/07/2011 05/21/2016 Pruritus 05/07/2011 05/21/2016 Xerosis cutis 03/08/2011 05/21/2016 Spasm of muscle 05/21/2010 10/06/2017 Pyoderma, unspecified 12/21/20092016 Excoriation 09/08/2009 05/21/2016 Routine gynecological examination 09/26/2008 11/21/2011 Overview: [facility], [facility] [place] Poor growth, affecting management of mother, antepartum condition or complication 08/15/2008 09/26/2008 Routine general medical exam ination at a health care facility 08/01/2008 11/21/2011 Overview: 08/01/08 -- establish care Routine gynecological examination 08/01/2008 08/15/2008 Overview: [facility], [facility] [place] Urinary calculus, unspecified 12/22/2007 10/06/2017 Overview: First occurred in early 2006, again summer total as of Dec 2007 Pain in joint, lower leg 12/11/2005 Hemorrhage of rectum and anus 08/01/2008 Abnormal maternal glucose to lerance, antepartum 08/01/2008 Overview: diet controlled documented as of this encounter (statuses as of 12/03/2022) [facility] History of Past illness Narrative* Problem Noted Date Diagnosed Date Resolved Date Low back pain 09/11/2013 10/06/2017 Buttock pain 09/11/2013 10/06/2017 Backache, unspecified 05/30/20122017 Pyoderma 05/07/2011 05/21/2016 Pruritus 05/07/2011 05/21/2016 Xerosis cutis 03/08/2011 05/21/2016 Spasm of muscle 05/21/2010 10/06/2017 Pyoderma, unspecified 12/21/20092016 Excoriation 09/08/2009 05/21/2016 Routine gynecological examination 09/26/2008 11/21/2011 Overview: [facility], [facility] [place] Poor growth, affecting management of mother, antepartum condition or complication 08/15/2008 09/26/2008 Routine general medical exam ination at a health care facility 08/01/2008 11/21/2011 Overview: 08/01/08 -- establish care Routine gynecological examination 08/01/2008 08/15/2008 Overview: [facility], [facility] [place] Urinary calculus, unspecified 12/22/2007 10/06/2017 Overview: First occurred in early 2006, again summer 2007 - total as of Dec 2007 Pain in joint, lower leg 12/11/2005 Hemorrhage of rectum and anus 08/01/2008 Abnormal maternal glucose to lerance, antepartum 08/01/2008 Overview: diet controlled documented as of this encounter (statuses as of 12/07/2022) [facility] History of Past illness Narrative* Problem Noted Date Diagnosed Date Resolved Date Low back pain 09/11/2013 10/06/2017 Buttock pain 09/11/2013 10/06/2017 Backache, unspecified 05/30/20122017 Pyoderma 05/07/2011 05/21/2016 Pruritus 05/07/2011 05/21/2016 Xerosis cutis 03/08/2011 05/21/2016 Spasm of muscle 05/21/2010 10/06/2017 Pyoderma, unspecified 12/21/20092016 Excoriation 09/08/2009 05/21/2016 Routine gynecological examination 09/26/2008 11/21/2011 Overview: [facility], [facility] [place] Poor growth, affecting management of mother, antepartum condition or complication 08/15/2008 09/26/2008 Routine general medical exam ination at a health care facility 08/01/2008 11/21/2011 Overview: 08/01/08 -- establish care Routine gynecological examination 08/01/2008 08/15/2008 Overview: [facility], [facility] [place] Urinary calculus, unspecified 12/22/2007 10/06/2017 Overview: First occurred in early 2006, again summer 2007 - total as of Dec 2007 Pain in joint, lower leg 12/11/2005 Hemorrhage of rectum and anus 08/01/2008 Abnormal maternal glucose to lerance, antepartum 08/01/2008 Overview: diet controlled documented as of this encounter (statuses as of 12/16/2022) [facility] History of Past illness Narrative* Problem Noted Date Diagnosed Date Resolved Date Low back pain 09/11/2013 10/06/2017 Buttock pain 09/11/2013 10/06/2017 Backache, unspecified 05/30/20122017 Pyoderma 05/07/2011 05/21/2016 Pruritus 05/07/2011 05/21/2016 Xerosis cutis 03/08/2011 05/21/2016 Spasm of muscle 05/21/2010 10/06/2017 Pyoderma, unspecified 12/21/20092016 Excoriation 09/08/2009 05/21/2016 Routine gynecological examination 09/26/2008 11/21/2011 Overview: [facility] [place] Poor growth, affecting management of mother, antepartum condition or complication 08/15/2008 09/26/2008 Routine general medical exam ination at a health care facility 08/01/2008 11/21/2011 Overview: 08/01/08 -- establish care Routine gynecological examination 08/01/2008 08/15/2008 Overview: [facility] [place] Urinary calculus, unspecified 12/22/2007 10/06/2017 Overview: First occurred in early 2006, again summer 2007 - total as of Dec 2007 Pain in joint, lower leg 12/11/2005 Hemorrhage of rectum and anus 08/01/2008 Abnormal maternal glucose to lerance, antepartum 08/01/2008 Overview: diet controlled documented as of this encounter (statuses as of 12/16/2022) [facility] History of Past illness Narrative* Problem Noted Date Diagnosed Date Resolved Date Low back pain 09/11/2013 10/06/2017 Buttock pain 09/11/2013 10/06/2017 Backache, unspecified 05/30/20122017 Pyoderma 05/07/2011 05/21/2016 Pruritus 05/07/2011 05/21/2016 Xerosis cutis 03/08/2011 05/21/2016 Spasm of muscle 05/21/2010 10/06/2017 Pyoderma, unspecified 12/21/20092016 Excoriation 09/08/2009 05/21/2016 Routine gynecological examination 09/26/2008 11/21/2011 Overview: [facility] [place] Poor growth, affecting management of mother, antepartum condition or complication 08/15/2008 09/26/2008 Routine general medical exam ination at a health care facility 08/01/2008 11/21/2011 Overview: 08/01/08 -- establish care Routine gynecological examination 08/01/2008 08/15/2008 Overview: [facility], [facility] [place] Urinary calculus, unspecified 12/22/2007 10/06/2017 Overview: First occurred in early 2006, again summer 2007 - total as of Dec 2007 Pain in joint, lower leg 12/11/2005 Hemorrhage of rectum and anus 08/01/2008 Abnormal maternal glucose to lerance, antepartum 08/01/2008 Overview: diet controlled documented as of this encounter (statuses as of 01/02/2023) [facility] History of Past illness Narrative* Problem Noted Date Diagnosed Date Resolved Date Low back pain 09/11/2013 10/06/2017 Buttock pain 09/11/2013 10/06/2017 Backache, unspecified 05/30/20122017 Pyoderma 05/07/2011 05/21/2016 Pruritus 05/07/2011 05/21/2016 Xerosis cutis 03/08/2011 05/21/2016 Spasm of muscle 05/21/2010 10/06/2017 Pyoderma, unspecified 12/21/20092016 Excoriation 09/08/2009 05/21/2016 Routine gynecological examination 09/26/2008 11/21/2011 Overview: [facility], [facility] [place] Poor growth, affecting management of mother, antepartum condition or complication 08/15/2008 09/26/2008 Routine general medical exam ination at a health care facility 08/01/2008 11/21/2011 Overview: 08/01/08 -- establish care Routine gynecological examination 08/01/2008 08/15/2008 Overview: [facility], [facility] [place] Urinary calculus, unspecified 12/22/2007 10/06/2017 Overview: First occurred in early 2006, again summer 2007 - total as of Dec 2007 Pain in joint, lower leg 12/11/2005 Hemorrhage of rectum and anus 08/01/2008 Abnormal maternal glucose to lerance, antepartum 08/01/2008 Overview: diet controlled documented as of this encounter (statuses as of 01/06/2023) [facility] History of Past illness Narrative* Problem Noted Date Diagnosed Date Resolved Date Low back pain 09/11/2013 10/06/2017 Buttock pain 09/11/2013 10/06/2017 Backache, unspecified 05/30/20122017 Pyoderma 05/07/2011 05/21/2016 Pruritus 05/07/2011 05/21/2016 Xerosis cutis 03/08/2011 05/21/2016 Spasm of muscle 05/21/2010 10/06/2017 Pyoderma, unspecified 12/21/20092016 Excoriation 09/08/2009 05/21/2016 Routine gynecological examination 09/26/2008 11/21/2011 Overview: [facility], [facility] [place] Poor growth, affecting management of mother, antepartum condition or complication 08/15/2008 09/26/2008 Routine general medical exam ination at a health care facility 08/01/2008 11/21/2011 Overview: 08/01/08 -- establish care Routine gynecological examination 08/01/2008 08/15/2008 Overview: [facility], [facility] [place] Urinary calculus, unspecified 12/22/2007 10/06/2017 Overview: First occurred in early 2006, again summer 2007 - 4 total as of Dec 2007 Pain in joint, lower leg 12/11/2005 Hemorrhage of rectum and anus 08/01/2008 Abnormal maternal glucose to lerance, antepartum 08/01/2008 Overview: diet controlled documented as of this encounter (statuses as of 01/08/2023) [facility] History of Past illness Narrative* Problem Noted Date Diagnosed Date Resolved Date Low back pain 09/11/2013 10/06/2017 Buttock pain 09/11/2013 10/06/2017 Backache, unspecified 05/30/20122017 Pyoderma 05/07/2011 05/21/2016 Pruritus 05/07/2011 05/21/2016 Xerosis cutis 03/08/2011 05/21/2016 Spasm of muscle 05/21/2010 10/06/2017 Pyoderma, unspecified 12/21/20092016 Excoriation 09/08/2009 05/21/2016 Routine gynecological examination 09/26/2008 11/21/2011 Overview: [facility], [facility] [place] Poor growth, affecting management of mother, antepartum condition or complication 08/15/2008 09/26/2008 Routine general medical exam ination at a health care facility 08/01/2008 11/21/2011 Overview: 08/01/08 -- establish care Routine gynecological examination 08/01/2008 08/15/2008 Overview: [facility], [facility] [place] Urinary calculus, unspecified 12/22/2007 10/06/2017 Overview: First occurred in early 2006, again summer 2007 - total as of Dec 2007 Pain in joint, lower leg 12/11/2005 Hemorrhage of rectum and anus 08/01/2008 Abnormal maternal glucose to lerance, antepartum 08/01/2008 Overview: diet controlled documented as of this encounter (statuses as of 01/08/2023) [facility] History of Past illness Narrative* Problem Noted Date Diagnosed Date Resolved Date Low back pain 09/11/2013 10/06/2017 Buttock pain 09/11/2013 10/06/2017 Backache, unspecified 05/30/20122017 Pyoderma 05/07/2011 05/21/2016 Pruritus 05/07/2011 05/21/2016 Xerosis cutis 03/08/2011 05/21/2016 Spasm of muscle 05/21/2010 10/06/2017 Pyoderma, unspecified 12/21/20092016 Excoriation 09/08/2009 05/21/2016 Routine gynecological examination 09/26/2008 11/21/2011 Overview: [facility] [place] Poor growth, affecting management of mother, antepartum condition or complication 08/15/2008 09/26/2008 Routine general medical exam ination at a health care facility 08/01/2008 11/21/2011 Overview: 08/01/08 -- establish care Routine gynecological examination 08/01/2008 08/15/2008 Overview: [facility], [facility] [place] Urinary calculus, unspecified 12/22/2007 10/06/2017 Overview: First occurred in early 2006, again summer 2007 - total as of Dec 2007 Pain in joint, lower leg 12/11/2005 Hemorrhage of rectum and anus 08/01/2008 Abnormal maternal glucose to lerance, antepartum 08/01/2008 Overview: diet controlled documented as of this encounter (statuses as of 01/14/2023) [facility] History of Past illness Narrative* Problem Noted Date Diagnosed Date Resolved Date Low back pain 09/11/2013 10/06/2017 Buttock pain 09/11/2013 10/06/2017 Backache, unspecified 05/30/20122017 Pyoderma 05/07/2011 05/21/2016 Pruritus 05/07/2011 05/21/2016 Xerosis cutis 03/08/2011 05/21/2016 Spasm of muscle 05/21/2010 10/06/2017 Pyoderma, unspecified 12/21/20092016 Excoriation 09/08/2009 05/21/2016 Routine gynecological examination 09/26/2008 11/21/2011 Overview: [facility], [facility] [place] Poor growth, affecting management of mother, antepartum condition or complication 08/15/2008 09/26/2008 Routine general medical exam ination at a health care facility 08/01/2008 11/21/2011 Overview: 08/01/08 -- establish care Routine gynecological examination 08/01/2008 08/15/2008 Overview: [facility], [facility] [place] Urinary calculus, unspecified 12/22/2007 10/06/2017 Overview: First occurred in early 2006, again summer 2007 - total as of Dec 2007 Pain in joint, lower leg 12/11/2005 Hemorrhage of rectum and anus 08/01/2008 Abnormal maternal glucose to lerance, antepartum 08/01/2008 Overview: diet controlled documented as of this encounter (statuses as of 01/20/2023) [facility] History of Past illness Narrative* Problem Noted Date Diagnosed Date Resolved Date Low back pain 09/11/2013 10/06/2017 Buttock pain 09/11/2013 10/06/2017 Backache, unspecified 05/30/20122017 Pyoderma 05/07/2011 05/21/2016 Pruritus 05/07/2011 05/21/2016 Xerosis cutis 03/08/2011 05/21/2016 Spasm of muscle 05/21/2010 10/06/2017 Pyoderma, unspecified 12/21/20092016 Excoriation 09/08/2009 05/21/2016 Routine gynecological examination 09/26/2008 11/21/2011 Overview: [facility], [facility] [place] Poor growth, affecting management of mother, antepartum condition or complication 08/15/2008 09/26/2008 Routine general medical exam ination at a health care facility 08/01/2008 11/21/2011 Overview: 08/01/08 -- establish care Routine gynecological examination 08/01/2008 08/15/2008 Overview: [facility], [facility] [place] Urinary calculus, unspecified 12/22/2007 10/06/2017 Overview: First occurred in early 2006, again summer 2007 - total as of Dec 2007 Pain in joint, lower leg 12/11/2005 Hemorrhage of rectum and anus 08/01/2008 Abnormal maternal glucose to lerance, antepartum 08/01/2008 Overview: diet controlled documented as of this encounter (statuses as of 01/21/2023) [facility] History of Past illness Narrative* Problem Noted Date Diagnosed Date Resolved Date Low back pain 09/11/2013 10/06/2017 Buttock pain 09/11/2013 10/06/2017 Backache, unspecified 05/30/20122017 Pyoderma 05/07/2011 05/21/2016 Pruritus 05/07/2011 05/21/2016 Xerosis cutis 03/08/2011 05/21/2016 Spasm of muscle 05/21/2010 10/06/2017 Pyoderma, unspecified 12/21/20092016 Excoriation 09/08/2009 05/21/2016 Routine gynecological examination 09/26/2008 11/21/2011 Overview: [facility], [facility] [place] Poor growth, affecting management of mother, antepartum condition or complication 08/15/2008 09/26/2008 Routine general medical exam ination at a health care facility 08/01/2008 11/21/2011 Overview: 08/01/08 -- establish care Routine gynecological examination 08/01/2008 08/15/2008 Overview: [facility], [facility] [place] Urinary calculus, unspecified 12/22/2007 10/06/2017 Overview: First occurred in early 2006, again summer 2007 - 4 total as of Dec 2007 Pain in joint, lower leg 12/11/2005 Hemorrhage of rectum and anus 08/01/2008 Abnormal maternal glucose to lerance, antepartum 08/01/2008 Overview: diet controlled documented as of this encounter (statuses as of 01/26/2023) [facility] History of Past illness Narrative* Problem Noted Date Diagnosed Date Resolved Date Low back pain 09/11/2013 10/06/2017 Buttock pain 09/11/2013 10/06/2017 Backache, unspecified 05/30/20122017 Pyoderma 05/07/2011 05/21/2016 Pruritus 05/07/2011 05/21/2016 Xerosis cutis 03/08/2011 05/21/2016 Spasm of muscle 05/21/2010 10/06/2017 Pyoderma, unspecified 12/21/20092016 Excoriation 09/08/2009 05/21/2016 Routine gynecological examination 09/26/2008 11/21/2011 Overview: [facility], [facility] [place] Poor growth, affecting management of mother, antepartum condition or complication 08/15/2008 09/26/2008 Routine general medical exam ination at a health care facility 08/01/2008 11/21/2011 Overview: 08/01/08 -- establish care Routine gynecological examination 08/01/2008 08/15/2008 Overview: [facility], [facility] [place] Urinary calculus, unspecified 12/22/2007 10/06/2017 Overview: First occurred in early 2006, again summer 2007 - total as of Dec 2007 Pain in joint, lower leg 12/11/2005 Hemorrhage of rectum and anus 08/01/2008 Abnormal maternal glucose to lerance, antepartum 08/01/2008 Overview: diet controlled documented as of this encounter (statuses as of 01/30/2023) [facility] History of Past illness Narrative* Problem Noted Date Diagnosed Date Resolved Date Low back pain 09/11/2013 10/06/2017 Buttock pain 09/11/2013 10/06/2017 Backache, unspecified 05/30/20122017 Pyoderma 05/07/2011 05/21/2016 Pruritus 05/07/2011 05/21/2016 Xerosis cutis 03/08/2011 05/21/2016 Spasm of muscle 05/21/2010 10/06/2017 Pyoderma, unspecified 12/21/20092016 Excoriation 09/08/2009 05/21/2016 Routine gynecological examination 09/26/2008 11/21/2011 Overview: [facility] [place] Poor growth, affecting management of mother, antepartum condition or complication 08/15/2008 09/26/2008 Routine general medical exam ination at a health care facility 08/01/2008 11/21/2011 Overview: 08/01/08 -- establish care Routine gynecological examination 08/01/2008 08/15/2008 Overview: [facility] [place] Urinary calculus, unspecified 12/22/2007 10/06/2017 Overview: First occurred in early 2006, again summer 2007 - total as of Dec 2007 Pain in joint, lower leg 12/11/2005 Hemorrhage of rectum and anus 08/01/2008 Abnormal maternal glucose to lerance, antepartum 08/01/2008 Overview: diet controlled documented as of this encounter (statuses as of 01/31/2023) [facility] History of Past illness Narrative* Problem Noted Date Diagnosed Date Resolved Date Low back pain 09/11/2013 10/06/2017 Buttock pain 09/11/2013 10/06/2017 Backache, unspecified 05/30/20122017 Pyoderma 05/07/2011 05/21/2016 Pruritus 05/07/2011 05/21/2016 Xerosis cutis 03/08/2011 05/21/2016 Spasm of muscle 05/21/2010 10/06/2017 Pyoderma, unspecified 12/21/20092016 Excoriation 09/08/2009 05/21/2016 Routine gynecological examination 09/26/2008 11/21/2011 Overview: [facility], [facility] [place] Poor growth, affecting management of mother, antepartum condition or complication 08/15/2008 09/26/2008 Routine general medical exam ination at a health care facility 08/01/2008 11/21/2011 Overview: 08/01/08 -- establish care Routine gynecological examination 08/01/2008 08/15/2008 Overview: [facility], [facility] [place] Urinary calculus, unspecified 12/22/2007 10/06/2017 Overview: First occurred in early 2006, again summer 2007 - total as of Dec 2007 Pain in joint, lower leg 12/11/2005 Hemorrhage of rectum and anus 08/01/2008 Abnormal maternal glucose to lerance, antepartum 08/01/2008 Overview: diet controlled documented as of this encounter (statuses as of 02/02/2023) [facility] History of Past illness Narrative* Problem Noted Date Diagnosed Date Resolved Date Low back pain 09/11/2013 10/06/2017 Buttock pain 09/11/2013 10/06/2017 Backache, unspecified 05/30/20122017 Pyoderma 05/07/2011 05/21/2016 Pruritus 05/07/2011 05/21/2016 Xerosis cutis 03/08/2011 05/21/2016 Spasm of muscle 05/21/2010 10/06/2017 Pyoderma, unspecified 12/21/20092016 Excoriation 09/08/2009 05/21/2016 Routine gynecological examination 09/26/2008 11/21/2011 Overview: [facility], [facility] [place] Poor growth, affecting management of mother, antepartum condition or complication 08/15/2008 09/26/2008 Routine general medical exam ination at a health care facility 08/01/2008 11/21/2011 Overview: 08/01/08 -- establish care Routine gynecological examination 08/01/2008 08/15/2008 Overview: [facility], [facility] [place] Urinary calculus, unspecified 12/22/2007 10/06/2017 Overview: First occurred in early 2006, again summer 2007 - total as of Dec 2007 Pain in joint, lower leg 12/11/2005 Hemorrhage of rectum and anus 08/01/2008 Abnormal maternal glucose to lerance, antepartum 08/01/2008 Overview: diet controlled documented as of this encounter (statuses as of 02/03/2023) [facility] History of Past illness Narrative* Problem Noted Date Diagnosed Date Resolved Date Low back pain 09/11/2013 10/06/2017 Buttock pain 09/11/2013 10/06/2017 Backache, unspecified 05/30/20122017 Pyoderma 05/07/2011 05/21/2016 Pruritus 05/07/2011 05/21/2016 Xerosis cutis 03/08/2011 05/21/2016 Spasm of muscle 05/21/2010 10/06/2017 Pyoderma, unspecified 12/21/20092016 Excoriation 09/08/2009 05/21/2016 Routine gynecological examination 09/26/2008 11/21/2011 Overview: [facility], [facility] [place] Poor growth, affecting management of mother, antepartum condition or complication 08/15/2008 09/26/2008 Routine general medical exam ination at a health care facility 08/01/2008 11/21/2011 Overview: 08/01/08 -- establish care Routine gynecological examination 08/01/2008 08/15/2008 Overview: [facility], [facility] [employer] [place] Urinary calculus, unspecified 12/22/2007 10/06/2017 Overview: First occurred in early 2006, again summer 2007 - total as of Dec 2007 Pain in joint, lower leg 12/11/2005 Hemorrhage of rectum and anus 08/01/2008 Abnormal maternal glucose to lerance, antepartum 08/01/2008 Overview: diet controlled documented as of this encounter (statuses as of 02/12/2023) [facility] History of Past illness Narrative* Problem Noted Date Diagnosed Date Resolved Date Low back pain 09/11/2013 10/06/2017 Buttock pain 09/11/2013 10/06/2017 Backache, unspecified 05/30/20122017 Pyoderma 05/07/2011 05/21/2016 Pruritus 05/07/2011 05/21/2016 Xerosis cutis 03/08/2011 05/21/2016 Spasm of muscle 05/21/2010 10/06/2017 Pyoderma, unspecified 12/21/20092016 Excoriation 09/08/2009 05/21/2016 Routine gynecological examination 09/26/2008 11/21/2011 Overview: [facility], [facility] [place] Poor growth, affecting management of mother, antepartum condition or complication 08/15/2008 09/26/2008 Routine general medical exam ination at a health care facility 08/01/2008 11/21/2011 Overview: 08/01/08 -- establish care Routine gynecological examination 08/01/2008 08/15/2008 Overview: [facility], [facility] [place] Urinary calculus, unspecified 12/22/2007 10/06/2017 Overview: First occurred in early 2006, again summer 2007 - total as of Dec 2007 Pain in joint, lower leg 12/11/2005 Hemorrhage of rectum and anus 08/01/2008 Abnormal maternal glucose to lerance, antepartum 08/01/2008 Overview: diet controlled documented as of this encounter (statuses as of 02/25/2023) [facility] History of Past illness Narrative* Problem Noted Date Diagnosed Date Resolved Date Low back pain 09/11/2013 10/06/2017 Buttock pain 09/11/2013 10/06/2017 Backache, unspecified 05/30/20122017 Pyoderma 05/07/2011 05/21/2016 Pruritus 05/07/2011 05/21/2016 Xerosis cutis 03/08/2011 05/21/2016 Spasm of muscle 05/21/2010 10/06/2017 Pyoderma, unspecified 12/21/20092016 Excoriation 09/08/2009 05/21/2016 Routine gynecological examination 09/26/2008 11/21/2011 Overview: [facility] [place] Poor growth, affecting management of mother, antepartum condition or complication 08/15/2008 09/26/2008 Routine general medical exam ination at a health care facility 08/01/2008 11/21/2011 Overview: 08/01/08 -- establish care Routine gynecological examination 08/01/2008 08/15/2008 Overview: [facility] [place] Urinary calculus, unspecified 12/22/2007 10/06/2017 Overview: First occurred in early 2006, again summer 2007 - total as of Dec 2007 Pain in joint, lower leg 12/11/2005 Hemorrhage of rectum and anus 08/01/2008 Abnormal maternal glucose to lerance, antepartum 08/01/2008 Overview: diet controlled documented as of this encounter (statuses as of 02/26/2023) [facility] History of Past illness Narrative* Problem Noted Date Diagnosed Date Resolved Date Low back pain 09/11/2013 10/06/2017 Buttock pain 09/11/2013 10/06/2017 Backache, unspecified 05/30/20122017 Pyoderma 05/07/2011 05/21/2016 Pruritus 05/07/2011 05/21/2016 Xerosis cutis 03/08/2011 05/21/2016 Spasm of muscle 05/21/2010 10/06/2017 Pyoderma, unspecified 12/21/20092016 Excoriation 09/08/2009 05/21/2016 Routine gynecological examination 09/26/2008 11/21/2011 Overview: [facility], [facility] [place] Poor growth, affecting management of mother, antepartum condition or complication 08/15/2008 09/26/2008 Routine general medical exam ination at a health care facility 08/01/2008 11/21/2011 Overview: 08/01/08 -- establish care Routine gynecological examination 08/01/2008 08/15/2008 Overview: [facility], [facility] [place] Urinary calculus, unspecified 12/22/2007 10/06/2017 Overview: First occurred in early 2006, again summer 2007 - total as of Dec 2007 Pain in joint, lower leg 12/11/2005 Hemorrhage of rectum and anus 08/01/2008 Abnormal maternal glucose to lerance, antepartum 08/01/2008 Overview: diet controlled documented as of this encounter (statuses as of 03/05/2023) [facility] History of Past illness Narrative* Problem Noted Date Diagnosed Date Resolved Date Low back pain 09/11/2013 10/06/2017 Buttock pain 09/11/2013 10/06/2017 Backache, unspecified 05/30/20122017 Pyoderma 05/07/2011 05/21/2016 Pruritus 05/07/2011 05/21/2016 Xerosis cutis 03/08/2011 05/21/2016 Spasm of muscle 05/21/2010 10/06/2017 Pyoderma, unspecified 12/21/20092016 Excoriation 09/08/2009 05/21/2016 Routine gynecological examination 09/26/2008 11/21/2011 Overview: [facility], [facility] [place] Poor growth, affecting management of mother, antepartum condition or complication 08/15/2008 09/26/2008 Routine general medical exam ination at a health care facility 08/01/2008 11/21/2011 Overview: 08/01/08 -- establish care Routine gynecological examination 08/01/2008 08/15/2008 Overview: [facility], [facility] [place] Urinary calculus, unspecified 12/22/2007 10/06/2017 Overview: First occurred in early 2006, again summer 2007 - total as of Dec 2007 Pain in joint, lower leg 12/11/2005 Hemorrhage of rectum and anus 08/01/2008 Abnormal maternal glucose to lerance, antepartum 08/01/2008 Overview: diet controlled documented as of this encounter (statuses as of 03/08/2023) [facility] History of Past illness Narrative* Problem Noted Date Diagnosed Date Resolved Date Low back pain 09/11/2013 10/06/2017 Buttock pain 09/11/2013 10/06/2017 Backache, unspecified 05/30/20122017 Pyoderma 05/07/2011 05/21/2016 Pruritus 05/07/2011 05/21/2016 Xerosis cutis 03/08/2011 05/21/2016 Spasm of muscle 05/21/2010 10/06/2017 Pyoderma, unspecified 12/21/20092016 Excoriation 09/08/2009 05/21/2016 Routine gynecological examination 09/26/2008 11/21/2011 Overview: [facility], [facility] [place] Poor growth, affecting management of mother, antepartum condition or complication 08/15/2008 09/26/2008 Routine general medical exam ination at a health care facility 08/01/2008 11/21/2011 Overview: 08/01/08 -- establish care Routine gynecological examination 08/01/2008 08/15/2008 Overview: [facility], [facility] [place] Urinary calculus, unspecified 12/22/2007 10/06/2017 Overview: First occurred in early 2006, again summer 2007 - total as of Dec 2007 Pain in joint, lower leg 12/11/2005 Hemorrhage of rectum and anus 08/01/2008 Abnormal maternal glucose to lerance, antepartum 08/01/2008 Overview: diet controlled documented as of this encounter (statuses as of 05/06/2023) [facility] History of Past illness Narrative* Problem Noted Date Diagnosed Date Resolved Date Low back pain 09/11/2013 10/06/2017 Buttock pain 09/11/2013 10/06/2017 Backache, unspecified 05/30/20122017 Pyoderma 05/07/2011 05/21/2016 Pruritus 05/07/2011 05/21/2016 Xerosis cutis 03/08/2011 05/21/2016 Spasm of muscle 05/21/2010 10/06/2017 Pyoderma, unspecified 12/21/20092016 Excoriation 09/08/2009 05/21/2016 Routine gynecological examination 09/26/2008 11/21/2011 Overview: [facility], [facility] [place] Poor growth, affecting management of mother, antepartum condition or complication 08/15/2008 09/26/2008 Routine general medical exam ination at a health care facility 08/01/2008 11/21/2011 Overview: 08/01/08 -- establish care Routine gynecological examination 08/01/2008 08/15/2008 Overview: [facility], [facility] [place] Urinary calculus, unspecified 12/22/2007 10/06/2017 Overview: First occurred in early 2006, again summer 2007 - total as of Dec 2007 Pain in joint, lower leg 12/11/2005 Hemorrhage of rectum and anus 08/01/2008 Abnormal maternal glucose to lerance, antepartum 08/01/2008 Overview: diet controlled documented as of this encounter (statuses as of 05/20/2023) [facility] History of Past illness Narrative* Problem Noted Date Diagnosed Date Resolved Date Low back pain 09/11/2013 10/06/2017 Buttock pain 09/11/2013 10/06/2017 Backache, unspecified 05/30/20122017 Pyoderma 05/07/2011 05/21/2016 Pruritus 05/07/2011 05/21/2016 Xerosis cutis 03/08/2011 05/21/2016 Spasm of muscle 05/21/2010 10/06/2017 Pyoderma, unspecified 12/21/20092016 Excoriation 09/08/2009 05/21/2016 Routine gynecological examination 09/26/2008 11/21/2011 Overview: [facility] [place] Poor growth, affecting management of mother, antepartum condition or complication 08/15/2008 09/26/2008 Routine general medical exam ination at a health care facility 08/01/2008 11/21/2011 Overview: 08/01/08 -- establish care Routine gynecological examination 08/01/2008 08/15/2008 Overview: [facility] [place] Urinary calculus, unspecified 12/22/2007 10/06/2017 Overview: First occurred in early 2006, again summer 2007 - total as of Dec 2007 Pain in joint, lower leg 12/11/2005 Hemorrhage of rectum and anus 08/01/2008 Abnormal maternal glucose to lerance, antepartum 08/01/2008 Overview: diet controlled documented as of this encounter (statuses as of 05/26/2023) [facility] History of Past illness Narrative* Problem Noted Date Diagnosed Date Resolved Date Low back pain 09/11/2013 10/06/2017 Buttock pain 09/11/2013 10/06/2017 Backache, unspecified 05/30/20122017 Pyoderma 05/07/2011 05/21/2016 Pruritus 05/07/2011 05/21/2016 Xerosis cutis 03/08/2011 05/21/2016 Spasm of muscle 05/21/2010 10/06/2017 Pyoderma, unspecified 12/21/20092016 Excoriation 09/08/2009 05/21/2016 Routine gynecological examination 09/26/2008 11/21/2011 Overview: [facility] [place] Poor growth, affecting management of mother, antepartum condition or complication 08/15/2008 09/26/2008 Routine general medical exam ination at a health care facility 08/01/2008 11/21/2011 Overview: 08/01/08 -- establish care Routine gynecological examination 08/01/2008 08/15/2008 Overview: [facility], [facility] [place] Urinary calculus, unspecified 12/22/2007 10/06/2017 Overview: First occurred in early 2006, again summer 2007 - total as of Dec 2007 Pain in joint, lower leg 12/11/2005 Hemorrhage of rectum and anus 08/01/2008 Abnormal maternal glucose to lerance, antepartum 08/01/2008 Overview: diet controlled documented as of this encounter (statuses as of 06/03/2023) [facility] History of Past illness Narrative* Problem Noted Date Diagnosed Date Resolved Date Low back pain 09/11/2013 10/06/2017 Buttock pain 09/11/2013 10/06/2017 Backache, unspecified 05/30/20122017 Pyoderma 05/07/2011 05/21/2016 Pruritus 05/07/2011 05/21/2016 Xerosis cutis 03/08/2011 05/21/2016 Spasm of muscle 05/21/2010 10/06/2017 Pyoderma, unspecified 12/21/20092016 Excoriation 09/08/2009 05/21/2016 Routine gynecological examination 09/26/2008 11/21/2011 Overview: [facility], [facility] [place] Poor growth, affecting management of mother, antepartum condition or complication 08/15/2008 09/26/2008 Routine general medical exam ination at a health care facility 08/01/2008 11/21/2011 Overview: 08/01/08 -- establish care Routine gynecological examination 08/01/2008 08/15/2008 Overview: [facility], [facility] [place] Urinary calculus, unspecified 12/22/2007 10/06/2017 Overview: First occurred in early 2006, again summer 2007 - total as of Dec 2007 Pain in joint, lower leg 12/11/2005 Hemorrhage of rectum and anus 08/01/2008 Abnormal maternal glucose to lerance, antepartum 08/01/2008 Overview: diet controlled documented as of this encounter (statuses as of 06/03/2023) [facility] History of Past illness Narrative* Problem Noted Date Diagnosed Date Resolved Date Low back pain 09/11/2013 10/06/2017 Buttock pain 09/11/2013 10/06/2017 Backache, unspecified 05/30/20122017 Pyoderma 05/07/2011 05/21/2016 Pruritus 05/07/2011 05/21/2016 Xerosis cutis 03/08/2011 05/21/2016 Spasm of muscle 05/21/2010 10/06/2017 Pyoderma, unspecified 12/21/20092016 Excoriation 09/08/2009 05/21/2016 Routine gynecological examination 09/26/2008 11/21/2011 Overview: [facility], [facility] [place] Poor growth, affecting management of mother, antepartum condition or complication 08/15/2008 09/26/2008 Routine general medical exam ination at a health care facility 08/01/2008 11/21/2011 Overview: 08/01/08 -- establish care Routine gynecological examination 08/01/2008 08/15/2008 Overview: [facility], [facility] [place] Urinary calculus, unspecified 12/22/2007 10/06/2017 Overview: First occurred in early 2006, again summer 2007 - total as of Dec 2007 Pain in joint, lower leg 12/11/2005 Hemorrhage of rectum and anus 08/01/2008 Abnormal maternal glucose to lerance, antepartum 08/01/2008 Overview: diet controlled documented as of this encounter (statuses as of 06/04/2023) [facility] History of Past illness Narrative* Problem Noted Date Diagnosed Date Resolved Date Low back pain 09/11/2013 10/06/2017 Buttock pain 09/11/2013 10/06/2017 Backache, unspecified 05/30/20122017 Pyoderma 05/07/2011 05/21/2016 Pruritus 05/07/2011 05/21/2016 Xerosis cutis 03/08/2011 05/21/2016 Spasm of muscle 05/21/2010 10/06/2017 Pyoderma, unspecified 12/21/20092016 Excoriation 09/08/2009 05/21/2016 Routine gynecological examination 09/26/2008 11/21/2011 Overview: [facility], [facility] [place] Poor growth, affecting management of mother, antepartum condition or complication 08/15/2008 09/26/2008 Routine general medical exam ination at a health care facility 08/01/2008 11/21/2011 Overview: 08/01/08 -- establish care Routine gynecological examination 08/01/2008 08/15/2008 Overview: [facility], [facility] [place] Urinary calculus, unspecified 12/22/2007 10/06/2017 Overview: First occurred in early 2006, again summer 2007 - 4 total as of Dec 2007 Pain in joint, lower leg 12/11/2005 Hemorrhage of rectum and anus 08/01/2008 Abnormal maternal glucose to lerance, antepartum 08/01/2008 Overview: diet controlled documented as of this encounter (statuses as of 06/10/2023) [facility] History of Past illness Narrative* Problem Noted Date Diagnosed Date Resolved Date Low back pain 09/11/2013 10/06/2017 Buttock pain 09/11/2013 10/06/2017 Backache, unspecified 05/30/20122017 Pyoderma 05/07/2011 05/21/2016 Pruritus 05/07/2011 05/21/2016 Xerosis cutis 03/08/2011 05/21/2016 Spasm of muscle 05/21/2010 10/06/2017 Pyoderma, unspecified 12/21/20092016 Excoriation 09/08/2009 05/21/2016 Routine gynecological examination 09/26/2008 11/21/2011 Overview: [facility], [facility] [place] Poor growth, affecting management of mother, antepartum condition or complication 08/15/2008 09/26/2008 Routine general medical exam ination at a health care facility 08/01/2008 11/21/2011 Overview: 08/01/08 -- establish care Routine gynecological examination 08/01/2008 08/15/2008 Overview: [facility], [facility] [place] Urinary calculus, unspecified 12/22/2007 10/06/2017 Overview: First occurred in early 2006, again summer 2007 - total as of Dec 2007 Pain in joint, lower leg 12/11/2005 Hemorrhage of rectum and anus 08/01/2008 Abnormal maternal glucose to lerance, antepartum 08/01/2008 Overview: diet controlled documented as of this encounter (statuses as of 06/11/2023) [facility] History of Past illness Narrative* Problem Noted Date Diagnosed Date Resolved Date Low back pain 09/11/2013 10/06/2017 Buttock pain 09/11/2013 10/06/2017 Backache, unspecified 05/30/20122017 Pyoderma 05/07/2011 05/21/2016 Pruritus 05/07/2011 05/21/2016 Xerosis cutis 03/08/2011 05/21/2016 Spasm of muscle 05/21/2010 10/06/2017 Pyoderma, unspecified 12/21/20092016 Excoriation 09/08/2009 05/21/2016 Routine gynecological examination 09/26/2008 11/21/2011 Overview: [facility], [facility] [place] Poor growth, affecting management of mother, antepartum condition or complication 08/15/2008 09/26/2008 Routine general medical exam ination at a health care facility 08/01/2008 11/21/2011 Overview: 08/01/08 -- establish care Routine gynecological examination 08/01/2008 08/15/2008 Overview: [facility], [facility] [place] Urinary calculus, unspecified 12/22/2007 10/06/2017 Overview: First occurred in early 2006, again summer 2007 - total as of Dec 2007 Pain in joint, lower leg 12/11/2005 Hemorrhage of rectum and anus 08/01/2008 Abnormal maternal glucose to lerance, antepartum 08/01/2008 Overview: diet controlled documented as of this encounter (statuses as of 06/16/2023) [facility] History of Past illness Narrative* Problem Noted Date Diagnosed Date Resolved Date Low back pain 09/11/2013 10/06/2017 Buttock pain 09/11/2013 10/06/2017 Backache, unspecified 05/30/20122017 Pyoderma 05/07/2011 05/21/2016 Pruritus 05/07/2011 05/21/2016 Xerosis cutis 03/08/2011 05/21/2016 Spasm of muscle 05/21/2010 10/06/2017 Pyoderma, unspecified 12/21/20092016 Excoriation 09/08/2009 05/21/2016 Routine gynecological examination 09/26/2008 11/21/2011 Overview: [facility], [facility] [place] Poor growth, affecting management of mother, antepartum condition or complication 08/15/2008 09/26/2008 Routine general medical exam ination at a health care facility 08/01/2008 11/21/2011 Overview: 08/01/08 -- establish care Routine gynecological examination 08/01/2008 08/15/2008 Overview: [facility], [facility] [place] Urinary calculus, unspecified 12/22/2007 10/06/2017 Overview: First occurred in early 2006, again summer 2007 - total as of Dec 2007 Pain in joint, lower leg 12/11/2005 Hemorrhage of rectum and anus 08/01/2008 Abnormal maternal glucose to lerance, antepartum 08/01/2008 Overview: diet controlled documented as of this encounter (statuses as of 07/08/2023) [facility] History of Past illness Narrative* Problem Noted Date Diagnosed Date Resolved Date Low back pain 09/11/2013 10/06/2017 Buttock pain 09/11/2013 10/06/2017 Backache, unspecified 05/30/20122017 Pyoderma 05/07/2011 05/21/2016 Pruritus 05/07/2011 05/21/2016 Xerosis cutis 03/08/2011 05/21/2016 Spasm of muscle 05/21/2010 10/06/2017 Pyoderma, unspecified 12/21/20092016 Excoriation 09/08/2009 05/21/2016 Routine gynecological examination 09/26/2008 11/21/2011 Overview: [facility], [facility] [place] Poor growth, affecting management of mother, antepartum condition or complication 08/15/2008 09/26/2008 Routine general medical exam ination at a health care facility 08/01/2008 11/21/2011 Overview: 08/01/08 -- establish care Routine gynecological examination 08/01/2008 08/15/2008 Overview: [facility], [facility] [place] Urinary calculus, unspecified 12/22/2007 10/06/2017 Overview: First occurred in early 2006, again summer 2007 - total as of Dec 2007 Pain in joint, lower leg 12/11/2005 Hemorrhage of rectum and anus 08/01/2008 Abnormal maternal glucose to lerance, antepartum 08/01/2008 Overview: diet controlled documented as of this encounter (statuses as of 07/13/2023) [facility] History of Past illness Narrative* Problem Noted Date Diagnosed Date Resolved Date Low back pain 09/11/2013 10/06/2017 Buttock pain 09/11/2013 10/06/2017 Backache, unspecified 05/30/20122017 Pyoderma 05/07/2011 05/21/2016 Pruritus 05/07/2011 05/21/2016 Xerosis cutis 03/08/2011 05/21/2016 Spasm of muscle 05/21/2010 10/06/2017 Pyoderma, unspecified 12/21/20092016 Excoriation 09/08/2009 05/21/2016 Routine gynecological examination 09/26/2008 11/21/2011 Overview: [facility], [facility] [place] Poor growth, affecting management of mother, antepartum condition or complication 08/15/2008 09/26/2008 Routine general medical exam ination at a health care facility 08/01/2008 11/21/2011 Overview: 08/01/08 -- establish care Routine gynecological examination 08/01/2008 08/15/2008 Overview: [facility] [facility] [place] Urinary calculus, unspecified 12/22/2007 10/06/2017 Overview: First occurred in early 2006, again summer 2007 - total as of Dec 2007 Pain in joint, lower leg 12/11/2005 Hemorrhage of rectum and anus 08/01/2008 Abnormal maternal glucose to l[place], antepartum 08/01/2008 Overview: diet controlled documented as of this encounter (statuses as of 07/13/2023) [facility] No data available for this section [facility] Evaluation note* Diagnosis Onset Date Resolution Status Diarrhea acute Irritable bowel syndrome with diarrhea acute Migraine headache without aura acute Ankylosing spondylitis chron ic Low back pain chronic Neck pain chronic Numbness chronic Paresthesias chronic POTS (postural orthostatic tachycardia syndrome) chronic Abdominal pain acute Diarrhea acute COVID-19 acute Sinus tachycardia acute Symptomatic bradycardia acut e POTS (postural orthostatic tachycardia syndrome) chronic [facility] Work Phone: Evaluation note* Diagnosis Pelvic pain in female- Primary Unspecified symptom associated with female genital organs Endometriosis Endometriosis, site unspecified Spastic pelvic floor syndrome Other symptoms involving digestive system [facility] this [facility] Diagnosis Rash and nonspecific skin eruption- Primary Rash and other nonspecific skin eruption Hair loss Alopecia, unspecified Folliculitis Other specified disease of hair and hair follicles Erythema intertrigo Other specified erythematous condition [facility] this [facility]* Diagnosis Onset Date Resolution Status Migraine headache without aura acute Ankylosing spondylitis chron ic Low back pain chronic Neck pain chronic Numbness chronic Paresthesias chronic POTS (postural orthostatic tachycardia syndrome) chronic Abdominal pain acute Diarrhea acute COVID-19 acute Sinus tachycardia acute Symptomatic bradycardia acut e POTS (postural orthostatic tachycardia syndrome) chronic Cellulitis of labia acute [facility] Work Phone: Evaluation note* Diagnosis Treatment not available- Primary Procedure not carried out for other reasons documented in this encounter [facility]* Diagnosis Endometriosis- Primary Endometriosis, site unspecified Pelvic pain in female Unspecified symptom associated with female genital organs Preop examination Preoperative examination, unspecified documented [facility] this [facility]* Diagnosis Seasonal allergies- Primary Allergic rhinitis, cause unspecified Folliculitis Other specified disease of hair and hair follicles Dermatitis Contact dermatitis and other eczema, due to unspecified cause documented [facility] this [facility]* Diagnosis Chronic rhinitis- Primary Seasonal allergies Allergic rhinitis, cause unspecified Allergic conjunctivitis, bilateral Other chronic allergic conjunctivitis Anaphylaxis due to hymenoptera venom, accidental or unintentional, initial encounter Allergic urticaria Allergy to cephalosporin Other drug allergy Mild persistent asthma, unspecified whether complicated Latex allergy status Allergy to latex Nasal turbinate hypertrophy Hypertrophy of nasal turbinates documented [facility] this [facility]* Diagnosis Mild persistent asthma, unspecified whether complicated [facility] Diagnosis Bloody diarrhea- Primary Diarrhea Endometriosis Endometriosis, site unspecified Pelvic pain in female Unspecified symptom associated with female genital organs documented [facility] this [facility]* Diagnosis Onset Date Resolution Status Cellulitis of labia acute Acute maxillary sinusitis, unspecified acute Low back pain chronic Migraine headache without aura chronic Neck pain chronic Numbness chronic Paresthesias chronic POTS (postural orthostatic tachycardia syndrome) chronic Abdominal pain acute Chronic diarrhea chronic [facility] Work Phone: Evaluation note* Diagnosis Onset Date Resolution Status Cellulitis of labia acute Acute maxillary sinusitis, unspecified acute Low back pain chronic Migraine headache without aura chronic Neck pain chronic Numbness chronic Paresthesias chronic POTS (postural orthostatic tachycardia syndrome) chronic Abdominal pain acute Chronic diarrhea chronic Family history of premature CAD acute Fatigue acute Sinus tachycardia acute POTS (postural orthostatic tachycardia syndrome) chronic Elevated C-reactive protein (CRP) acute Irritable bowel syndrome with diarrhea acute Endometriosis [facility] Work Phone: Evaluation note* Diagnosis Endometriosis- Primary Endometriosis, site unspecified Endometriosis Endometriosis, site unspecified documented in this encounter [facility] note* Diagnosis Acne vulgaris- Primary Other acne Seborrheic keratosis Other seborrheic keratosis Endometriosis Endometriosis, site unspecified documented in this encounter [facility] note* Diagnosis Urinary urgency- Primary Urgency of urination Urinary frequency Endometriosis Endometriosis, site unspecified documented in this encounter [facility] note* Diagnosis Pre-op evaluation- Primary Preoperative examination, unspecified documented in this encounter [facility] note* Diagnosis Endometriosis- Primary Endometriosis, site unspecified Pelvic pain in female Unspecified symptom associated with female genital organs documented in this encounter [facility] note* Diagnosis Post-operative state- Primary Other postprocedural status Post-op pain Other acute postoperative pain documented in this encounter [facility] note* Diagnosis Elevated testosterone level- Primary documented in this encounter [facility] note* Diagnosis Onset Date Resolution Status Family history of premature CAD acute Fatigue acute Sinus tachycardia acute POTS (postural orthostatic tachycardia syndrome) chronic Elevated C-reactive protein (CRP) acute Irritable bowel syndrome with diarrhea acute Endometriosis [facility] Work Phone: Evaluation note* Diagnosis Post-operative state- Primary Other postprocedural status documented in this encounter [facility] note* Diagnosis Kidney stone- Primary Calculus of kidney documented in this encounter [facility] note* 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 Other intra-abdominal and pelvic swelling, mass and lump documented in this encounter [facility] note* 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) Other intra-abdominal and pelvic swelling, mass and lump documented [facility] this [facility]* Diagnosis Screening for genitourinary condition Screening for other and unspecified genitourinary condition documented [facility] this [facility]* Diagnosis Abnormality present on gross pathology- [...] female genital organs documented in this encounter [facility] note* Diagnosis S/P laparoscopic hysterectomy- Primary Acquired absence of both cervix and uterus History of endometriosis Personal history of other genital system and obstetric disorders Pelvic pain in female Unspecified symptom associated with female genital organs Abnormality present on gross pathology S/P ovarian cystectomy Other postprocedural status documented in this [facility]* Diagnosis Onset Date Resolution Status Abnormality present on gross pathology acute Hx of removal of ovary resol rachel [facility] Work Phone: Evaluation note* Diagnosis Onset Date Resolution Status Abnormality present on gross pathology acute Hx of removal of ovary resol rachel Inclusion cyst of vulva [facility] Work Phone: Evaluation note* Diagnosis Adult acne- Primary Other acne documented in this encounter [facility] note* Diagnosis Hidradenitis suppurativa- Primary Hidradenitis Acne excoriee Other acne documented in this encounter [facility]No assessment [facility] Work [facility]: [facility]* Diagnosis Urinary frequency- Primary Muscle spasm Spasm of muscle Urinary urgency Urgency of urination documented in this encounter [facility] note* Diagnosis Screening for genitourinary condition- Primary Screening for other and unspecified genitourinary condition Kidney stone Calculus of kidney documented in this encounter [facility] note* Diagnosis Chronic left-sided low back pain with left-sided sciatica- Primary Radiculopathy, cervical region Brachial neuritis or radiculitis nos Radiculopathy, lumbar region Thoracic or lumbosacral neuritis or radiculitis, unspecified Neck pain Cervicalgia Spinal stenosis of cervical region Spinal stenosis in cervical region Spinal stenosis of lumbar region, unspecified whether neurogenic claudication present documented [facility] this [facility]* Diagnosis Obesity, Class I, BMI 30-34.9 Obesity, unspecified [facility] this [facility]* Diagnosis Urinary frequency- Primary Pain of upper abdomen Abdominal pain, other specified site documented [facility] this encounter [facility]* Diagnosis Strain of gastrocnemius muscle of left lower extremity, initial encounter- Primary documented [facility] this [facility]* Diagnosis Onset Date Resolution Status Calf pain acute [facility] Work Phone: Evaluation note* Diagnosis Strain of gastrocnemius muscle of left lower extremity, initial encounter- Primary documented in this [facility]* Diagnosis Strain of gastrocnemius muscle of left lower extremity, initial encounter- Primary documented in this [facility]* Diagnosis Strain of gastrocnemius muscle of left lower extremity, initial encounter- Primary documented [facility] this [facility]* Diagnosis Kidney stone Calculus of kidney [facility] this [facility]* Diagnosis S/P laparoscopic hysterectomy Acquired absence of both cervix and uterus Pelvic pain in female Unspecified symptom associated with female genital organs Abnormality present on gross pathology S/P ovarian cystectomy Other postprocedural status documented in this encounter [facility]* Diagnosis Onset Date Resolution Status Calf pain acute Diminished pulses in lower extremity acute Family history of premature CAD acute Leg pain acute POTS (postural orthostatic tachycardia syndrome) chronic Sinus tachycardia chronic [facility] Work Phone: Evaluation note* Diagnosis Radiculopathy, cervical region- Primary Brachial neuritis or radiculitis nos Chronic bilateral low back pain with bilateral sciatica documented [facility] this [facility]* Diagnosis Spinal stenosis of cervical region Spinal stenosis in cervical region documented in this [facility]* Diagnosis Spinal stenosis of lumbar region, unspecified whether neurogenic claudication present [facility]* Diagnosis Endometriosis- Primary Endometriosis, site unspecified Pelvic pain in female Unspecified symptom associated with female genital organs History of kidney stones documented in this encounter [facility] Work Phone: Evaluation note* Diagnosis Difficulty voiding- Primary Other symptoms involving urinary system Pelvic pain in female Unspecified symptom associated with female genital organs Bladder spasm Hypertonicity of bladder documented in this encounter [facility] Work Phone: Evaluation note* Diagnosis Urinary frequency- Primary Gross hematuria Left flank pain Abdominal pain, unspecified site Pelvic pain Bladder spasm Hypertonicity of bladder documented in this encounter [facility] Work Phone: Evaluation note* Diagnosis Loose stools- Primary Abnormal feces Pelvic pain in female Unspecified symptom associated with female genital organs Gastroesophageal reflux disease, unspecified whether esophagitis present Dysphagia, unspecified type Epigastric pain Abdominal pain, epigastric documented in this encounter [facility] Work Phone: Evaluation note* Diagnosis Onset Date Resolution Status Diminished pulses in lower extremity acute Family history of premature CAD acute Leg pain acute POTS (postural orthostatic tachycardia syndrome) chronic Sinus tachycardia chronic Calf pain acute Diminished pulses in lower extremity acute Lower extremity edema acute Left leg paresthesias acute Lumbar strain acute [facility] Work Phone: Evaluation note* Diagnosis NO SHOW- Primary [facility]* Diagnosis Pelvic pain in female- Primary Unspecified symptom associated with female genital organs Loose stools Abnormal feces Nausea Nausea alone documented in this encounter [facility] Work Phone: Evaluation note* Diagnosis Strain of gastrocnemius muscle of left lower extremity, subsequent encounter- Primary Other injury of unspecified muscle(s) and tendon(s) at lower leg level, unspecified leg, initial encounter [facility] Diagnosis Onset Date Resolution Status Calf pain acute Diminished pulses in lower extremity acute Lower extremity edema acute Left leg paresthesias acute Lumbar strain acute Diarrhea acute Epigastric abdominal pain ac [place] GI bleeding acute [facility] Work Phone: Evaluation note* Diagnosis Other injury of unspecified muscle(s) and tendon(s) at lower leg level, unspecified leg, initial encounter documented [facility] this [facility]* Diagnosis Radiculopathy, cervical region- Primary Brachial neuritis or radiculitis nos Chronic midline low back pain without sciatica documented in this [facility]* Diagnosis Acne vulgaris- Primary Other acne documented in this [facility]* Diagnosis Strain of gastrocnemius muscle of left lower extremity, subsequent encounter- Primary documented [facility] this [facility]* Diagnosis Pelvic floor dysfunction- Primary Endometriosis Endometriosis, site unspecified Loose stools Abnormal feces documented in this encounter [facility] Work Phone: Evaluation note* Diagnosis Onset Date Resolution Status Left leg paresthesias acute Lumbar strain acute Diarrhea acute Epigastric abdominal pain ac [place] GI bleeding acute [facility] Work Phone: Evaluation note* Diagnosis Urinary frequency- Primary Nephrolithiasis Calculus of kidney Pelvic pain Bladder spasm Hypertonicity of bladder Gross hematuria documented in this encounter [facility] Work Phone: Evaluation note* Diagnosis Onset Date Resolution Status Diarrhea acute Epigastric abdominal pain ac [place] GI bleeding acute Dyspnea on exertion acute Family history of premature CAD acute POTS (postural orthostatic tachycardia syndrome) chronic Sinus tachycardia chronic [facility] Work Phone: Evaluation note* Diagnosis Radiculopathy, cervical region- Primary Brachial neuritis or radiculitis nos 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 Myofascial pain Mylagia and myositis, unspecified Lumbosacral neuritis Thoracic or lumbosacral neuritis or radiculitis, unspecified Mixed connective tissue disease (HCC) Other specified diffuse disease of connective tissue documented [facility] this [facility]* Diagnosis Obesity, Class I, BMI 30-34.9- Primary Obesity, unspecified Insulin resistance Dysmetabolic Syndrome X PCOS (polycystic ovarian syndrome) Polycystic ovaries Impaired fasting glucose documented [facility] this [facility]* Diagnosis Irritable bowel syndrome with both constipation and diarrhea- Primary IBD (inflammatory bowel disease) Other and unspecified noninfectious gastroenteritis and colitis documented [facility] this [facility]* Diagnosis Pain in joint, multiple sites documented [facility] this encounter [facility]* Diagnosis Pain in joint, multiple sites- Primary Inflammatory bowel disease Other and unspecified noninfectious gastroenteritis and colitis Vitamin D deficiency Unspecified vitamin D deficiency documented [facility]* Diagnosis Acne excoriee- Primary Other acne Hidradenitis suppurativa Hidradenitis documented in this [facility]* Diagnosis Endometriosis Endometriosis, site unspecified documented in this encounter [facility] Work Phone: Evaluation note* Diagnosis Endometriosis- Primary Endometriosis, site unspecified Pelvic floor dysfunction Pelvic pain in female Unspecified symptom associated with female genital organs documented in this encounter [facility] Work Phone: Evaluation note* Diagnosis IAN positive- Primary Other and unspecified nonspecific immunological findings Pain in joint, multiple sites documented [facility] this [facility]* Diagnosis Acne vulgaris- Primary Other acne documented [facility] this [facility]* Diagnosis Folliculitis- Primary Other specified disease of hair and hair follicles Medication monitoring encounter Encounter for therapeutic drug monitoring Pre-operative examination- Primary Preoperative examination, unspecified Uncomplicated asthma, unspecified asthma severity, unspecified whether persistent ALVERTO (obstructive sleep apnea) Obstructive sleep apnea (adult) (pediatric) POTS (postural orthostatic tachycardia syndrome) Tachycardia, unspecified Palpitations Lyme disease Sinus tachycardia Other specified cardiac dysrhythmias Fibromyalgia Mylagia and myositis, unspecified Essential hypertension Unspecified essential hypertension Gastroesophageal reflux disease, unspecified whether esophagitis present Prediabetes Other abnormal glucose Chronic interstitial cystitis with hematuria Chronic interstitial cystitis Adrenal insufficiency (HCC) Glucocorticoid deficiency Medullary sponge kidney of both kidneys PCOS (polycystic ovarian syndrome) Polycystic ovaries Hidradenitis Pain Generalized pain documented [facility] this [facility]* Diagnosis Malignant neoplasm of left ovary- Primary Malignant neoplasm of ovary Urinary frequency [facility] Diagnosis Onset Date Resolution Status Calf pain acute Diminished pulses in lower extremity acute Family history of premature CAD acute Leg pain acute POTS (postural orthostatic tachycardia syndrome) chronic Sinus tachycardia chronic Calf pain acute Diminished pulses in lower extremity acute Lower extremity edema acute Left leg paresthesias acute Lumbar strain acute [facility] Work Phone: Evaluation note* Diagnosis Endometriosis Endometriosis, site unspecified documented in this encounter [facility] Work Phone: Evaluation note* Diagnosis Primary low grade serous adenocarcinoma of ovary (CMS/HCC) (HCC)- Primary [facility] Pelvic floor dysfunction- Primary History of kidney stones Vaginal atrophy Postmenopausal atrophic vaginitis Endometriosis Endometriosis, site unspecified Yeast infection of the skin Candidiasis of skin and nails documented in this encounter [facility] Work Phone: Evaluation note* Diagnosis Screening for diabetes mellitus- Primary Pelvic mass Abdominal or pelvic swelling, mass or lump, unspecified site Low libido [facility] Diagnosis Folliculitis- Primary Other specified disease of hair and hair follicles Medication monitoring encounter Encounter for therapeutic drug monitoring Pre-operative examination- Primary Preoperative examination, unspecified Uncomplicated asthma, unspecified asthma severity, unspecified whether persistent (HCC) ALVERTO (obstructive sleep apnea) Obstructive sleep apnea (adult) (pediatric) POTS (postural orthostatic tachycardia syndrome) Tachycardia, unspecified Palpitations Lyme disease Sinus tachycardia Other specified cardiac dysrhythmias Fibromyalgia Mylagia and myositis, unspecified Essential hypertension Unspecified essential hypertension Gastroesophageal reflux disease, unspecified whether esophagitis present Prediabetes Other abnormal glucose Chronic interstitial cystitis with hematuria Chronic interstitial cystitis Adrenal insufficiency (HCC) Glucocorticoid deficiency Medullary sponge kidney of both kidneys PCOS (polycystic ovarian syndrome) Polycystic ovaries Hidradenitis Urgency of urination- Primary Eustachian tube dysfunction, bilateral Crohn's disease without complication, unspecified gastrointestinal tract location (HCC) documented in this encounter [facility] NarrativeThe patient is being [...] some rashes that look like hives) Associated symptoms: generalized rash. The patient is not currently [...] had tuboovarian cyst on L in the past.hospitalized in December for tachycardia/syncope/bradycardia on cardizem but caused HTN. metoprolol-. gained 20 lbs. Pt was treated for Lyme years ago. 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 Turner - was going to schedule a hysterectomy * she continues to have pelvic pain * she desires surgery for endometriosis [id number] Work Phone: History of Present illness Narrative* KAYA ARCE is a 37-year-old female with a recent diagnosis of low-grade serous epithelial proliferation. She also has a family history of prostate and pancreatic cancer on her father's side and breast cancer and Ashkenazi [place] ancestry on her mother's side. [facility] was [facility] at [facility] by her physician, Dr. Marie Styles Ms. ARCE is interested in genetic [...] at 81; * -Maternal great aunt (through [facility]), cancer NOS, . * Ms. ARCE is of South African/Mexican/Cymro (paternal) and Scottish/Kiswahili/Pakistani (maternal) descent. She reports Hoahaoism ancestry on her maternal grandmother's side of the family. There is no known consanguinity. [place] [address] Work Phone: [facility] Work Phone: Hospital Discharge instructions Additional Instructions Alternate Tylenol and ibuprofen for your fever every 4 hours, be sure not to exceed 4000 mg of Tylenol in a 24-hour period. You can also take [id number] cold and flu medications or Mucinex. Return for any worsening of your symptoms, follow-up with PCP, stay well-hydrated.[facility] Work Phone: Hospital Discharge instructions Additional Instructions Your x-ray showed no sign of pneumonia. Your history and exam indicate you have a viral upper respiratory tract infection which will last on average 18 to 21 days. Use the prescribed medications as directed to help control symptoms and return to the ER should you have any further concernsWGenesis Hospital Work Phone: Progress note No data available for this section [facility] Reason for referral (narrative)* Outpatient Procedure (Routine) - Pending Review Specialty Diagnoses / Procedures Referred By Contac t Referred To Contact [facility] Diagnoses Bloody diarrhea Procedures COLONOSCOPY DIAGNOSTIC COLONOSCOPY FLX DX W/COLLJ SPEC WHEN PFRMD [address] [address] [place] [address] [facility] [address] [place] [address] Referral ID Status Reason Start Date Expiration Date Visits Requested Visits Authorized [id number] Pending Review Auto-Generat ed Referral 10/10/2021 10/10/2022 1 1 * Consult, Test, Treat (Routine) - Authorized Specialty Diagnoses / Procedures Referred By Contac t Referred To Contact Gastroenterology Diagnoses Bloody diarrhea Procedures CONSULT TO GASTROENTEROLOGY OFFICE/OUTPATIENT [facility] MDM 60-74 MINUTES [address] [place] [address] Referral ID Status Reason Start Date Expiration Date Visits Requested Visits Authorized [id number] Authorized PCP Requested Referral 10/10/2021 10/10/2022 1 1 [facility] for referral (narrative)* Diagnostic Procedure Only (Routine) - Pending Review Specialty Diagnoses / Procedures Referred By Contac t Referred To Contact US IMAGING Diagnoses Kidney stone Procedures US KIDNEY/BLADDER US RETROPERITONEAL REAL TIME W/IMAGE COMPLETE Selin Arellano, TRACIE.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 [address] [place] [phone] Us Imaging Referral ID Status Reason Start Date Expiration Date Visits Requested Visits Authorized [id number] Pending Review Auto-Generat ed Referral 04/12/2023 1 1 Electronically signed by Selin Arellano APRNAlessandra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 at 03/13/2022 1:56 PM EST [facility] for referral (narrative)* Diagnostic Procedure Only (Routine) - Pending Review Specialty Diagnoses / Procedures Referred By Contac t Referred To Contact US IMAGING Diagnoses S/P laparoscopic hysterectomy Pelvic pain in female Abnormality present on gross pathology S/P ovarian cystectomy Procedures US FEMALE PELVIS TRANSVAG US TRANSVAGINAL Ofelia Guzman APRN.CNP [address] [place] [address] Us Imaging Referral ID Status Reason Start Date Expiration Date Visits Requested Visits Authorized [id number] Pending Review Auto-Generat ed Referral 10/19/2022 05/21/2023 1 1 [facility] for referral (narrative)* Diagnostic Procedure Only (Routine) - Pending Review Specialty Diagnoses / Procedures Referred By Fernando darling Referred To Contact US IMAGING Diagnoses Strain of gastrocnemius muscle of left lower extremity, initial encounter Procedures US DVT LOWER LEFT DUP-SCAN XTR VEINS UNILATERAL/LIMITED STUDY Ky Ford MD [address] [place] [address] Us Imaging [id number] Referral ID Status Reason Start Date Expiration Date Visits Requested Visits Authorized [id number] Pending Review Auto-Generat ed Referral 3 02/04/2024 1 1 * Physical Therapy (Routine) - Pending Review Specialty Diagnoses / Procedures Referred By Fernando darling Referred To Contact [facility] Diagnoses Strain of gastrocnemius muscle of left lower extremity, initial encounter Procedures CONSULT TO PHYSICAL THERAPY PHYSICAL THERAPY EVALUATION HIGH COMPLEX 45 MINS Ky Ford MD [address] [place] [address] [facility] [place] [address] [place] [address] Referral ID Status Reason Start Date Expiration Date Visits Requested Visits Authorized [id number] Pending Review Auto-Generat ed Referral 3 01/05/2024 1 1 [facility] for referral (narrative)* Outpatient Procedure (Routine) - Closed Specialty Diagnoses / Procedures Referred By Fernando darling Referred To Contact [facility] [place] Diagnoses Strain of gastrocnemius muscle of left lower extremity, initial encounter Procedures US LEG VEIN DVT UNL VAS LAB DUP-SCAN XTR VEINS UNILATERAL/LIMITED STUDY Ky Ford MD [address] [place] [address] [facility] [address] [place] [address] Referral ID Status Reason Start Date Expiration Date V isits Requested Visits Authorized [id number] Closed Auto-Generate d Referral 01/08/2023 03/28/2023 1 1 [facility] for referral (narrative)* Diagnostic Procedure Only (Routine) - Closed Specialty Diagnoses / Procedures Referred By Contac t Referred To Contact US IMAGING Diagnoses Kidney stone Procedures US KIDNEY/BLADDER US RETROPERITONEAL REAL TIME W/IMAGE COMPLETE Selin Arellano APRN.CNP [address] [place] [address] Us Imaging [id number] Referral ID Status Reason Start Date Expiration Date V isits Requested Visits Authorized [id number] Closed Auto-Generate d Referral 03/13/2022 04/12/2023 1 1 [facility] for referral (narrative)* Consultation (Routine) - Pending Review Specialty Diagnoses / Procedures Referred By Contac t Referred To Contact Physical Therapy Diagnoses Difficulty voiding Pelvic pain in female Bladder spasm Canelo Pina, DESIGNER-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 [address] [place] [address] Referral ID Status Reason Start Date Expiration Date Visits Requested Visits Authorized Pending Review Specialty Services Required 04/14/2023 04/13/2024 1 1 * Consultation (Routine) - Authorized Specialty Diagnoses / Procedures Referred By Contac t Referred To Contact Gastroenterology Diagnoses Pelvic pain in female Canelo Pina DESIGNER-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 [address] [place] [address] Referral ID Status Reason Start Date Expiration Date Visits Requested Visits Authorized Authorized Specialty Services Required 04/14/2023 04/13/2024 1 1 * Consultation (Routine) - Authorized Specialty Diagnoses / Procedures Referred By Contac t Referred To Contact Urology Diagnoses Difficulty voiding Pelvic pain in female Bladder spasm Canelo Pina APRN-MARY [address] [place] [address] Referral ID Status Reason Start Date Expiration Date Visits Requested Visits Authorized Authorized Specialty Services Required 04/14/2023 04/13/2024 1 1 [facility] Work Phone: Reason for referral (narrative)* Consultation (Routine) - Pending Review Specialty Diagnoses / Procedures Referred By Contac t Referred To Contact Physical Therapy Diagnoses Pelvic pain Rossy Lainez APRN-CNP [address] [facility] [address], [place] [address] Nohemy Madrigal, PT [address] [place] [address] Referral ID Status Reason Start Date Expiration Date Visits Requested Visits Authorized Pending Review Specialty Services Required 04/15/2023 04/14/2024 1 1 * Imaging (Routine) - Pending Review Specialty Diagnoses / Procedures Referred By Contac t Referred To Contact Radiology Diagnoses Gross hematuria Left flank pain Procedures CT urography w 3D volume rendered imaging Rossy Lainez APRN-CNP [address] [facility] [address], [place] [phone] Referral ID Status Reason Start Date Expiration Date Visits Requested Visits Authorized [id number] Pending Review Perform Procedure 04/15/2023 04/14/2024 1 1 [facility] Work Phone: Reason for referral (narrative)* Diagnostic Procedure Only (Routine) - Closed Specialty Diagnoses / Procedures Referred By Contac t Referred To Contact XR IMAGING Diagnoses Pain Procedures XR KNEE GENERAL 4V AP BOTH/PA BOTH/LAT/MERC LEFT RADIOLOGIC EXAM KNEE COMPLETE 4/MORE VIEWS Ky Ford MD [address] [place] [address] [place] [address] Referral ID Status Reason Start Date Expiration Date V isits Requested Visits Authorized [id number] Closed Auto-Generate d Referral 01/04/2023 02/03/2024 1 1 [facility] for referral (narrative)No reason for referral [facility] Work Phone: Reason for visit Narrative* Consultation (Routine) - Authorized Specialty Diagnoses / Procedures Referred By Contac t Referred To Contact Gastroenterology Diagnoses Pelvic pain in female Canelo Pina DESIGNER-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 [address] [place] [address] Referral ID Status Reason Start Date Expiration Date Visits Requested Visits Authorized [id number] Authorized Specialty Services Required 04/14/2023 04/13/2024 1 1 [facility] Work Phone: Reason for visit Narrative* Diagnostic Procedure Only (Routine) - Closed Specialty Diagnoses / Procedures Referred By Contac t Referred To Contact XR IMAGING Diagnoses Pain in joint, multiple sites Procedures XR SACROILIAC JOINTS 2V AP PELVIS/FERGUESON RADIOLOGIC EXAMINATION SACROILIAC JNTS <3 VIEWS Brenda Berg MD [address] [place] [address] [place] [address] Referral ID Status Reason Start Date Expiration Date V isits Requested Visits Authorized [id number] Closed Auto-Generate d Referral 07/22/2023 08/20/2024 1 1 [facility] note* NILA Price: PERFORM Event Display: Patient Summary Documents Authored Date: [id number] [facility] Summary Purpose Family History No Family History Records FoundUnknown Family Member Name Dates Details Family history [...] breast: Maternal Grandmother, Mother, Grandmother(V16.3, Z80.3) Status:Active Relationship Condition Age at Onset Recorded Date/T randy mother Cardiac disease Unknown Hypertension Unknown father Cardiac disease Unknown Diabetes mellitus Unknown Unknown Family Member Name Dates Details Family [...] breast: Maternal Grandmother(V16.3, Z80.3) Status:Active Advance Directives No Advanced Directives Records FoundDocuments on File Type Date Recorded Patient Director Of Grants Expl anation Advance Directives and Living Will Power of Lip Cutter And Scorer Latest Code Status on File Code Status Date Activated Date Inactivated Comments Full Code 02/15/2019 9:11 AM Advance Directive Response Recorded Date/ Time Advance Directives No March 03, 2017 10:09pm Living Will No May 04 10:11pm Power of Lip Cutter And Scorer No May 04, 2021 10:11pm Documents on File Type Date Recorded Patient Director Of Grants Expl anation Advance Directive(s) 08/30/2018 7:49 AM Documents on File Type Date Recorded Patient Director Of Grants Expl anation Advance Directive(s) 08/30/2018 7:49 AM Advance Directive Response Recorded Date/ Time Advance Directives No March 03, 2017 10:09pm Living Will No December 03, 2 022 7:44pm Power of Lip Cutter And Scorer No December 03, 2021 7:44pm Advance Directive Response Recorded Date/ Time Advance Directives No March 03, 2017 9:09pm Living Will No December 03 022 6:44pm Power of Lip Cutter And Scorer No December 03, 2021 6:44pm Advance Directive Response Recorded Date/ Time Advance Directives No March 03, 2017 9:09pm Living Will No March 06 12:15pm Power of Lip Cutter And Scorer No March 06, 2022 12:15pm Advance Directive Response Recorded Date/ Time Advance Directives No March 03, 2017 9:09pm Living Will No April 25 3:44pm Power of Lip Cutter And Scorer No April 25, 2022 3:44pm Advance Directive Response Recorded Date/ Time Advance Directives No May 27 1:52pm Living Will No May 27, 2022 1:52pm Power of Lip Cutter And Scorer No May 27 1:52pm Advance Directive Response Recorded Date/ Time Advance Directives No May 27 2:52pm Living Will No May 27, 2022 2:52pm Power of Lip Cutter And Scorer No May 27 2:52pm Advance Directive Response Recorded Date/ Time Advance Directives No May 27 2:52pm Living Will No July 31, 2022 3: 34pm Power of Lip Cutter And Scorer No July 31, 2022 3:34pm Advance Directive Response Recorded Date/ Time Advance Directives No May 27 1:52pm Living Will No July 31, 2022 2: 34pm Power of Lip Cutter And Scorer No July 31, 2022 2:34pm Advance Directive Response Recorded Date/ Time Advance Directives No May 27 1:52pm Living Will No March 13, 2 023 10:53am Power of Lip Cutter And Scorer No March 13, 2023 10:53am Advance Directive Response Recorded Date/ Time Advance Directives No May 27 2:52pm Living Will No June 17, 2023 4:09pm Power of Lip Cutter And Scorer No June 16 4:09pm Advance Directive Response Recorded Date/ Time Advance Directives No May 27 2:52pm Living Will No July 12, 2023 4:31pm Power of Lip Cutter And Scorer No July 11 4:31pm Advance Directive Response Recorded Date/ Time Living Will No July 31, 2022 3: 34pm Power of Lip Cutter And Scorer No July 31, 2022 3:34pm Advance Directives No April 19, 2024 2:24pm Living Will No May 30, 2024 9:48pm Power of Lip Cutter And Scorer No May 30 9:48pm Advance Directive Response Recorded Date/ Time Living Will No July 31, 2022 3: 34pm Do you have a Healthcare Power of Lip Cutter And Scorer? No July 31, 2022 3:34pm Advance Directives No April 19, 2024 2:24pm Living Will No May 30, 2024 9:48pm Do you have a Healthcare Power of Lip Cutter And Scorer? No May 30, 2024 9:48pm Advance Directive Response Recorded Date/ Time Living Will No July 31, 2022 3: 34pm Do you have a Healthcare Power of Lip Cutter And Scorer? No July 31, 2022 3:34pm Advance Directives No April 19, 2024 2:24pm Living Will No July 16, 2024 8:08pm Do you have a Healthcare Power of Lip Cutter And Scorer? No July 16, 2024 8:08pm Living Will No May 30, 2024 9:48pm Do you have a Healthcare Power of Lip Cutter And Scorer? No May 30, 2024 9:48pm Advance Directive Response Recorded Date/ Time Living Will No July 31, 2022 3: 34pm Do you have a Healthcare Power of Lip Cutter And Scorer? No July 31, 2022 3:34pm Advance Directives No April 19, 2024 2:24pm Living Will No July 16, 2024 8:08pm Do you have a Healthcare Power of Lip Cutter And Scorer? No July 16, 2024 8:08pm Do you have a Healthcare Power of Lip Cutter And Scorer? No July 19, 2024 2:08am Living Will No May 30, 2024 9:48pm Do you have a Healthcare Power of Lip Cutter And Scorer? No May 30, 2024 9:48pm Advance Directive Response Recorded Date/ Time Advance Directives No April 19, 2024 2:24pm Living Will No July 16, 2024 8:08pm Do you have a Healthcare Power of Lip Cutter And Scorer? No July 16, 2024 8:08pm Do you have a Healthcare Power of Lip Cutter And Scorer? No July 19, 2024 2:08am Living Will No May 30, 2024 9:48pm Do you have a Healthcare Power of Lip Cutter And Scorer? No May 30, 2024 9:48pm Advance Directive Response Recorded Date/ Time Living Will No July 16, 2024 8:08pm Do you have a Healthcare Power of Lip Cutter And Scorer? No July 16, 2024 8:08pm Do you have a Healthcare Power of Lip Cutter And Scorer? No July 19, 2024 2:08am Living Will No May 30, 2024 9:48pm Do you have a Healthcare Power of Lip Cutter And Scorer? No May 30, 2024 9:48pm Advance Directives No April 19, 2024 2:24pm Advance Directive Response Recorded Date/ Time Living Will No July 16, 2024 8:08pm Do you have a Healthcare Power of Lip Cutter And Scorer? No July 16, 2024 8:08pm Do you have a Healthcare Power of Lip Cutter And Scorer? No July 19, 2024 2:08am Advance Directives No April 19, 2024 2:24pm Discharge Instructions * Instructions* Kg Oliveira MD - 02/15/2019 POST-OPERATIVE INSTRUCTIONS FOR ANORECTAL SURGERY OBTAIN [facility] FO[facility] - A narcotic pain [...] the office. Contact the office the following day after surgery to inform us of [...] acetaminophen and/or NSAIDS, please take your opioid prescription([place]/vicodin/percocet have tylenol in them) as needed for [...] 1-2 percocet/norco/vicodin tablets if needed PLEASE CALL [phone] if you have any questions documented in this encounter* Instructions* Amy Murillo RN - 02/08/2019 Please bring your [facility] Surgical Information folder on the day of [...] OR SAFEGUARD) You may use the free candy cutter hand parking at the main entrance on [address] [place] [address], or the free parking in the [facility] parking deck documented in this encounter History of Present Illness * Ana Beckford RN - 02/15/2019 3:10 PM EST Patient ambulated, denies dizziness or nausea. Tolerating PO fluids and crackers. * Ana Beckford RN - 02/15/2019 2:04 PM EST Discharge [...] issues * Patient was referred by Dr. Mia Meehan UCTD 4 month F/Upatient referred by Dr. Rossy Lainez to discuss endometriosis adhesions, declined line supply. LPNpatient referred by Dr. Rossy Lainez to discuss endometriosis adhesions, declined line supply. LPNAccompanied by alone. Chief Complaint and Reason for Visit Chief Complaint CROHN'S DIS & CHRONI C DIARRHEA 1 M FU 2 M FU SOB EORDERS 1 mon fu 10 MO F/U PALP ABDOMINAL PAIN Reason for Visit Diarrhea Irritable bowel syndrome with diarrhea Migraine headache without aura Ankylosing spondylitis Low back pain Neck pain Numbness Paresthesias POTS (postural orthostatic tachycardia syndrome) Abdominal pain Diarrhea COVID-19 Sinus tachycardia Symptomatic bradycardia POTS (postural orthostatic tachycardia syndrome) Chief Complaint 2 M FU SOB EORDERS 1 mon fu 10 MO F/U PALP ABDOMINAL PAIN labial cyst/boil? Reason for Visit Migraine headache wi thout aura Ankylosing spondylitis Low back pain Neck pain Numbness Paresthesias POTS (postural orthostatic tachycardia syndrome) Abdominal pain Diarrhea COVID-19 Sinus tachycardia Symptomatic bradycardia POTS (postural orthostatic tachycardia syndrome) Cellulitis of labia Chief Complaint labial cyst/boil? SORE THROAT/EAR PAIN R/S FU MISSED APPT FU Reason for Visit Cellulitis of labia Acute maxillary sinusitis, unspecified Low back pain Migraine headache without aura Neck pain Numbness Paresthesias POTS (postural orthostatic tachycardia syndrome) Abdominal pain Chronic diarrhea Chief Complaint labial cyst/boil? SORE THROAT/EAR PAIN R/S FU MISSED APPT FU E-ORDER Reason for Visit Cellulitis of labia Acute maxillary sinusitis, unspecified Low back pain Migraine headache without aura Neck pain Numbness Paresthesias POTS (postural orthostatic tachycardia syndrome) Abdominal pain Chronic diarrhea Chief Complaint labial cyst/boil? SORE THROAT/EAR PAIN R/S FU MISSED APPT FU E-ORDER 6 M FU 1 M FU PELVIC PAIN Reason for Visit Cellulitis of labia Acute maxillary sinusitis, unspecified Low back pain Migraine headache without aura Neck pain Numbness Paresthesias POTS (postural orthostatic tachycardia syndrome) Abdominal pain Chronic diarrhea Family history of premature CAD Fatigue Sinus tachycardia POTS (postural orthostatic tachycardia syndrome) Elevated C-reactive protein (CRP) Irritable bowel syndrome with diarrhea Endometriosis Chief Complaint 6 M FU 1 M FU PELVIC PAIN Reason for Visit Family history of pr emature CAD Fatigue Sinus tachycardia POTS (postural orthostatic tachycardia syndrome) Elevated C-reactive protein (CRP) Irritable bowel syndrome with diarrhea Endometriosis Chief Complaint 6 M FU 1 M FU PELVIC PAIN PAIN Reason for Visit Family history of pr emature CAD Fatigue Sinus tachycardia POTS (postural orthostatic tachycardia syndrome) Elevated C-reactive protein (CRP) Irritable bowel syndrome with diarrhea Endometriosis Chief Complaint PAIN post op [facility] hysterectomy n/v Reason for Visit Abnormality present on gross pathology Hx of removal of ovary Chief Complaint PAIN post op [facility] hysterectomy n/v groin cyst Injection Hepatomegaly, not elsewhere classified Reason for Visit Abnormality present on gross pathology Hx of removal of ovary Inclusion cyst of vulva Chief Complaint PAIN post op [facility] hysterectomy n/v groin cyst Injection Hepatomegaly, not elsewhere classified BACK PAIN ASSES R OVARY MASS Reason for Visit Abnormality present on gross pathology Hx of removal of ovary Inclusion cyst of vulva Chief Complaint post op [facility] hysterec megan n/v groin cyst Injection Hepatomegaly, not elsewhere classified BACK PAIN ASSES R OVARY MASS E-ORDER hand ijury Reason for Visit Abnormality present on gross pathology Hx of removal of ovary Inclusion cyst of vulva Chief Complaint E-ORDER hand ijury Chief Complaint E-ORDER hand ijury Epigastric pain/CC DR JUNIOR ON RESULTS Chief Complaint Epigastric pain/CC D R FRIEND ON RESULTS FLANK PAIN, URINARY DISCOMFORT Chief Complaint Epigastric pain/CC D R FRIEND ON RESULTS FLANK PAIN, URINARY DISCOMFORT LEFT CALF PAIN LT LOWER LEG Reason for Visit Calf pain Chief Complaint Epigastric pain/CC D R FRIEND ON RESULTS FLANK PAIN, URINARY DISCOMFORT LEFT CALF PAIN LT LOWER LEG 1 Y FU PREV PFM PT CONSULT-LEG PAIN Reason for Visit Calf pain Diminished pulses in lower extremity Family history of premature CAD Leg pain POTS (postural orthostatic tachycardia syndrome) Sinus tachycardia Chief Complaint PAIN LT LOWER LEG 1 Y FU PREV PFM PT CONSULT-LEG PAIN LOWER BACK PAIN LOCALIZED EDEMA; DECREASED PEDAL PULSES COUGH COPY PCP Reason for Visit Diminished pulses in lower extremity Family history of premature CAD Leg pain POTS (postural orthostatic tachycardia syndrome) Sinus tachycardia Calf pain Diminished pulses in lower extremity Lower extremity edema Left leg paresthesias Lumbar strain Chief Complaint 1 Y FU PREV PFM PT CONSULT-LEG PAIN LOWER BACK PAIN LOCALIZED EDEMA; DECREASED PEDAL PULSES COUGH COPY PCP Reason for Visit Diminished pulses in lower extremity Family history of premature CAD Leg pain POTS (postural orthostatic tachycardia syndrome) Sinus tachycardia Calf pain Diminished pulses in lower extremity Lower extremity edema Left leg paresthesias Lumbar strain Chief Complaint CONSULT-LEG PAIN LOWER BACK PAIN LOCALIZED EDEMA; DECREASED PEDAL PULSES COUGH COPY PCP FU Reason for Visit Calf pain Diminished pulses in lower extremity Lower extremity edema Left leg paresthesias Lumbar strain Diarrhea Epigastric abdominal pain GI bleeding Chief Complaint LOWER BACK PAIN LOCALIZED EDEMA; DECREASED PEDAL PULSES COUGH COPY PCP FU abd pain Reason for Visit Left leg paresthesia s Lumbar strain Diarrhea Epigastric abdominal pain GI bleeding Chief Complaint LOCALIZED EDEMA; DEC REASED PEDAL PULSES COUGH COPY PCP FU abd pain 4 M FU E-ORDER Reason for Visit Diarrhea Epigastric abdominal pain GI bleeding Dyspnea on exertion Family history of premature CAD POTS (postural orthostatic tachycardia syndrome) Sinus tachycardia Chief Complaint COPY PCP FU abd pain 4 M FU E-ORDER Reason for Visit Diarrhea Epigastric abdominal pain GI bleeding Dyspnea on exertion Family history of premature CAD POTS (postural orthostatic tachycardia syndrome) Sinus tachycardia Chief Complaint COPY PCP FU abd pain 4 M FU E-ORDER DYSPNEA Reason for Visit Diarrhea Epigastric abdominal pain GI bleeding Dyspnea on exertion Family history of premature CAD POTS (postural orthostatic tachycardia syndrome) Sinus tachycardia Chief Complaint FLANK PAIN, URINARY DISCOMFORT LEFT CALF PAIN LT LOWER LEG 1 Y FU PREV PFM PT CONSULT-LEG PAIN LOWER BACK PAIN LOCALIZED EDEMA; DECREASED PEDAL PULSES Reason for Visit Calf pain Diminished pulses in lower extremity Family history of premature CAD Leg pain POTS (postural orthostatic tachycardia syndrome) Sinus tachycardia Calf pain Diminished pulses in lower extremity Lower extremity edema Left leg paresthesias Lumbar strain Chief Complaint FLANK PAIN, URINARY DISCOMFORT LEFT CALF PAIN LT LOWER LEG 1 Y FU PREV PFM PT CONSULT-LEG PAIN LOWER BACK PAIN LOCALIZED EDEMA; DECREASED PEDAL PULSES COUGH Reason for Visit Calf pain Diminished pulses in lower extremity Family history of premature CAD Leg pain POTS (postural orthostatic tachycardia syndrome) Sinus tachycardia Calf pain Diminished pulses in lower extremity Lower extremity edema Left leg paresthesias Lumbar strain Chief Complaint Admit Date 1 y fu PREV PFM PT April 04, 2024 1: 05pm Medication issue April 05, 2024 9: 28am 2 ORDERING DOCTORS April 18, 2024 3 :37pm B/L LE PAIN/ POSSIBLE PAD April 19, 2024 8:55am LUMBAR SPINE April 27, 2024 1 2:48pm room 3 April 27, 2024 1 :17pm Medication issue May 29, 2024 2:18 pm N/V, FLANK PAIN May 30, 2024 5:13 pm E ORDER June 05, 2024 3:1 1pm HYDRATION June 08, 2024 2:1 3pm Reason for Visit Admit Date Heart palpitations April 04, 2024 1: 05pm POTS (postural orthostatic tachycardia s yndrome) April 04, 2024 1:05pm Abdominal pain April 05, 2024 9: 28am Crohn's disease April 05, 2024 9: 28am Elevated C-reactive protein (CRP) 2024 9:28am Nausea & vomiting April 05, 2024 9: 28am Calf pain April 19, 2024 8 :55am Lower extremity numbness April 19, 025 8:55am Lumbar radiculopathy April 27, 2024 12:48pm Cervical radiculopathy April 27 12:48pm Lumbar stenosis with neurogenic claudica tion April 27, 2024 12:48pm Crohn's disease May 29, 2024 2:18 pm Diarrhea May 29, 2024 2:18 pm Dizziness May 29, 2024 2:18 pm Left sided abdominal pain May 29 2:18pm Nausea & vomiting May 29, 2024 2:18 pm RLQ abdominal pain May 29, 2024 2:18 pm Chief Complaint Admit Date 1 y fu PREV PFM PT April 04, 2024 1: 05pm Medication issue April 05, 2024 9: 28am 2 ORDERING DOCTORS April 18, 2024 3 :37pm B/L LE PAIN/ POSSIBLE PAD April 19, 2024 8:55am LUMBAR SPINE April 27, 2024 1 2:48pm room 3 April 27, 2024 1 :17pm Medication issue May 29, 2024 2:18 pm N/V, FLANK PAIN May 30, 2024 5:13 pm E ORDER June 05, 2024 3:1 1pm HYDRATION June 08, 2024 2:1 3pm LEFT OVARY CA June 27, 2024 12:5 2pm sob July 16, 2024 7:2 1pm Chief Complaint Admit Date 1 y fu PREV PFM PT April 04, 2024 1: 05pm Medication issue April 05, 2024 9: 28am 2 ORDERING DOCTORS April 18, 2024 3 :37pm B/L LE PAIN/ POSSIBLE PAD April 19, 2024 8:55am LUMBAR SPINE April 27, 2024 1 2:48pm room 3 April 27, 2024 1 :17pm Medication issue May 29, 2024 2:18 pm N/V, FLANK PAIN May 30, 2024 5:13 pm E ORDER June 05, 2024 3:1 1pm HYDRATION June 08, 2024 2:1 3pm LEFT OVARY CA June 27, 2024 12:5 2pm sob July 16, 2024 7:2 1pm COUGH July 19, 2024 2:0 5am Chief Complaint Admit Date 2 ORDERING DOCTORS April 18, 2024 3 :37pm B/L LE PAIN/ POSSIBLE PAD April 19, 2024 8:55am LUMBAR SPINE April 27, 2024 1 2:48pm room 3 April 27, 2024 1 :17pm Medication issue May 29, 2024 2:18 pm N/V, FLANK PAIN May 30, 2024 5:13 pm E ORDER June 05, 2024 3:1 1pm HYDRATION June 08, 2024 2:1 3pm LEFT OVARY CA June 27, 2024 12:5 2pm sob July 16, 2024 7:2 1pm COUGH July 19, 2024 2:0 5am fu after prev egd and starting humira Ma y 2024 7:59am Reason for Visit Admit Date Calf pain April 19, 2024 8 :55am Lower extremity numbness April 19, 2 025 8:55am Lumbar radiculopathy April 27, 2024 12:48pm Cervical radiculopathy April 27 12:48pm Lumbar stenosis with neurogenic claudica tion April 27, 2024 12:48pm Crohn's disease May 29, 2024 2:18 pm Diarrhea May 29, 2024 2:18 pm Dizziness May 29, 2024 2:18 pm Left sided abdominal pain May 29 2:18pm Nausea & vomiting May 29, 2024 2:18 pm RLQ abdominal pain May 29, 2024 2:18 pm Chief Complaint Admit Date Medication issue May 29, 2024 2:18 pm N/V, FLANK PAIN May 30, 2024 5:13 pm E ORDER June 05, 2024 3:1 1pm HYDRATION June 08, 2024 2:1 3pm LEFT OVARY CA June 27, 2024 12:5 2pm sob July 16, 2024 7:2 1pm COUGH July 19, 2024 2:0 5am fu after prev egd and starting humira Ma y 2024 7:59am LUMBAR SPINE September 08, 2024 9:28 am Reason for Visit Admit Date Crohn's disease May 29, 2024 2:18 pm Diarrhea May 29, 2024 2:18 pm Dizziness May 29, 2024 2:18 pm Left sided abdominal pain May 29 2:18pm Nausea & vomiting May 29, 2024 2:18 pm RLQ abdominal pain May 29, 2024 2:18 pm Diarrhea August 09, 2024 7:59a m Epigastric abdominal pain August 09, 2024 7:59am GI bleeding August 09, 2024 7:59a m Chief Complaint Admit Date Medication issue May 29, 2024 2:18 pm N/V, FLANK PAIN May 30, 2024 5:13 pm E ORDER June 05, 2024 3:1 1pm HYDRATION June 08, 2024 2:1 3pm LEFT OVARY CA June 27, 2024 12:5 2pm sob July 16, 2024 7:2 1pm COUGH July 19, 2024 2:0 5am fu after prev egd and starting humira Ma y 2024 7:59am LUMBAR SPINE September 08, 2024 9:28 am EOFRANCESER- / JOSE CAROLS ORDER TOO Nicki ne 2024 10:54am Reason for Visit Admit Date Crohn's disease May 29, 2024 2:18 pm Diarrhea May 29, 2024 2:18 pm Dizziness May 29, 2024 2:18 pm Left sided abdominal pain May 29 2:18pm Nausea & vomiting May 29, 2024 2:18 pm RLQ abdominal pain May 29, 2024 2:18 pm Diarrhea August 09, 2024 7:59a m Epigastric abdominal pain August 09, 2024 7:59am GI bleeding August 09, 2024 7:59a m Lumbar radiculopathy September 08, 2024 9:2 8am Sacroiliitis September 08, 2024 9:28 am Chief Complaint Admit Date LEFT OVARY CA June 27, 2024 12:5 2pm sob July 16, 2024 7:2 1pm COUGH July 19, 2024 2:0 5am fu after prev egd and starting humira Ma y 2024 7:59am LUMBAR SPINE September 08, 2024 9:28 am EOFRANCESER- / JOSE CARLOS ORDER TOO Ju ne 2024 10:54am DISCUSS MEDS October 10, 2024 2:45 pm Reason for Visit Admit Date Diarrhea August 09, 2024 7:59a m Epigastric abdominal pain August 09, 2024 7:59am GI bleeding August 09, 2024 7:59a m Lumbar radiculopathy September 08, 2024 9:2 8am Sacroiliitis September 08, 2024 9:28 am Crohn's disease October 10, 2024 2:45 pm Reason for Referral Specialty Diagnoses / Procedures Referred By Contkorey t Referred To Contact Diagnoses Malignant neoplasm of left ovary Procedures US PELVIC W TRANSVAGINAL Nick Mcmanus, [address] [place] [address] Referral ID Status Reason Start Date Expiration Date V isits Requested Visits Authorized [id number] New Request 01/17/2024 02/10/2025 1 1 Referral ID Status Reason Start Date Expiration Date V isits Requested Visits Authorized [id number] New Request 01/17/2024 02/10/2025 1 1 Specialty Diagnoses / Procedures Referred By Contac t Referred To Contact Diagnoses Acne vulgaris Andrasik, Sneha, DESIGNER.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 [address] [place] [address] Referral ID Status Reason Start Date Expiration Date Visits Re quested Visits Authorized [id number] Closed 1 1 Specialty Diagnoses / Procedures Referred By Contac t Referred To Contact Radiology Diagnoses Endometriosis Procedures MR pelvis w and wo IV contrast MR pelvis w IV contrast Canelo Pina, DESIGNER-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 [address] [place] [address] Referral ID Status Reason Start Date Expiration Date Visits Requested Visits Authorized [id number] Authorized Perform Procedure 07/30/2023 07/29/2024 1 1 Specialty Diagnoses / Procedures Referred By Contac t Referred To Contact Diagnoses Acne excoriee Sneha Benton, DESIGNER.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 [address] [place] [address] Referral ID Status Reason Start Date Expiration Date Visits Re quested Visits Authorized [id number] Closed 1 1 Referral ID Status Reason Start Date Expiration Date Visits Re quested Visits Authorized [id number] Closed 1 1 Specialty Diagnoses / Procedures Referred By Contac t Referred To Contact MR IMAGING Diagnoses Inflammatory bowel disease Pain in joint, multiple sites Procedures MRI PELVIS ORTHO GENERAL WO IVCON MRI PELVIS W/O CONTRAST MATERIAL Brenda Berg MD [address] [place] [address] Mr Imaging [id number] Referral ID Status Reason Start Date Expiration Date Visits Requested Visits Authorized [id number] Pending Review Auto-Generat ed Referral 07/22/2023 08/20/2024 1 1 Specialty Diagnoses / Procedures Referred By Contac t Referred To Contact XR IMAGING Diagnoses Pain in joint, multiple sites Procedures XR SACROILIAC JOINTS 2V AP PELVIS/FERGUESON RADIOLOGIC EXAMINATION SACROILIAC JNTS <3 VIEWS Brenda Berg MD [address] [place] [address] [place] [address] Referral ID Status Reason Start Date Expiration Date V isits Requested Visits Authorized [id number] Closed Auto-Generate d Referral 07/22/2023 08/20/2024 1 1 Specialty Diagnoses / Procedures Referred By Contac t Referred To Contact Nutrition Diagnoses Irritable bowel syndrome with both constipation and diarrhea IBD (inflammatory bowel disease) Procedures CONSULT TO NUTRITION THERAPY MEDICAL NUTRITION ASSMT&IVNTJ INDIV EACH 15 [place] [address] [place] [address] Referral ID Status Reason Start Date Expiration Date Visits Requested Visits Authorized [id number] Authorized PCP Requested Referral 07/13/2023 07/12/2024 1 4 Specialty Diagnoses / Procedures Referred By Addisac t Referred To Contact Rheumatology Diagnoses Mixed connective tissue disease (HCC) Procedures CONSULT TO RHEUM/IMMUN DISEASE OFFICE/OUTPATIENT [facility] 60 MINUTES Zainab Duckworth MD [address] [facility] [address] [place] [address] Referral ID Status Reason Start Date Expiration Date Visits Requested Visits Authorized [id number] Authorized PCP Requested Referral 07/08/2023 07/07/2024 1 1 Specialty Diagnoses / Procedures Referred By Fernando t Referred To Contact MR IMAGING Diagnoses Other injury of unspecified muscle(s) and tendon(s) at lower leg level, unspecified leg, initial encounter Procedures MRI LOWER LEG WO IVCON LEFT MRI LOWER EXTREM OTH/THN JT W/O CONTR Ky Don MD [address] [place] [address] [place] [address] Referral ID Status Reason Start Date Expiration Date Visits Requested Visits Authorized [id number] Additional Clinical Info Needed Auto-Generat ed Referral 05/25/2023 06/23/2024 1 1 Specialty Diagnoses / Procedures Referred By Addisac t Referred To Contact Radiology Diagnoses History of kidney stones Procedures US renal complete Canelo Pina, DESIGNER-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 [address] [place] [address] Referral ID Status Reason Start Date Expiration Date Visits Requested Visits Authorized [id number] Authorized Perform Procedure 04/06/2023 04/05/2024 1 1 Specialty Diagnoses / Procedures Referred By Contac t Referred To Contact Pain Management Diagnoses Radiculopathy, cervical region Procedures CONSULT TO PAIN MGT Serjio Thompson MD [address] [place] [address] Referral ID Status Reason Start Date Expiration Date Visits Requested Visits Authorized [id number] Ref Not Required PCP Requested Referral 3 02/25/2024 1 1 Specialty Diagnoses / Procedures Referred By Contac t Referred To Contact [facility] Diagnoses Strain of gastrocnemius muscle of left lower extremity, initial encounter Procedures PT REHAB FOLLOW UP ORDER THERAPEUTIC EXERCISES RE, EA 15 MIN. Tamika Platt, PT [facility] [place] [address] [place] [address] Referral ID Status Reason Start Date Expiration Date Visits Requested Visits Authorized [id number] Pending Review PCP Requested Referral Auto-Generate d Referral 3 04/20/2023 1 1 Specialty Diagnoses / Procedures Referred By Contac t Referred To Contact Diagnoses Obesity, Class I, BMI 30-34.9 Procedures ENDOCRINOLOGY DIETITIAN VISIT (MNT) MEDICAL NUTRITION ASSMT&IVNTJ INDIV EACH 15 SD MEDICAL NUTRITION ASSMT&IVNTJ INDIV EACH 15 SD MEDICAL NUTRITION ASSMT&IVNTJ INDIV EACH 15 SD MEDICAL NUTRITION ASSMT&IVNTJ INDIV EACH [address] [place] [address] [place] [address] Referral ID Status Reason Start Date Expiration Date Visits Requested Visits Authorized [id number] Authorized PCP Requested Referral 12/16/2022 12/16/2023 1 1 Specialty Diagnoses / Procedures Referred By Contac t Referred To Contact MR IMAGING Diagnoses Spinal stenosis of lumbar region, unspecified whether neurogenic claudication present Procedures MRI LUMBAR SPINE WO IVCON MRI SPINAL CANAL LUMBAR W/O CONTRAST MATERIAL Sejrio Thompson MD [address] [place] [address] [place] [address] Referral ID Status Reason Start Date Expiration Date Visits Requested Visits Authorized [id number] Pending Review Auto-Generat ed Referral 12/15/2022 01/14/2024 1 1 Specialty Diagnoses / Procedures Referred By Contac t Referred To Contact MR IMAGING Diagnoses Spinal stenosis of cervical region Procedures MRI CERVICAL SPINE WO IVCON MRI SPINAL CANAL CERVICAL W/O CONTRAST Serjio Portillo MD [address] [facility] [place] [address] Mr Imaging [id number] Referral ID Status Reason Start Date Expiration Date Visits Requested Visits Authorized [id number] Pending Review Auto-Generat ed Referral 12/15/2022 01/14/2024 1 1 Specialty Diagnoses / Procedures Referred By Contac t Referred To Contact CT IMAGING Diagnoses Kidney stone Procedures CT FLANK WO IVCON CT ABD & PELVIS W/O CONTRAST Rudy Boyce MD [address] [facility] [place] [id number] [facility] [place] [address] Referral ID Status Reason Start Date Expiration Date Visits Requested Visits Authorized [id number] Pending Review Auto-Generat ed Referral 11/27/2022 12/27/2023 1 1 Specialty Diagnoses / Procedures Referred By Contac t Referred To Contact CT IMAGING Diagnoses Other intra-abdominal and pelvic swelling, mass and lump Procedures CT CHEST W IVCON DIAGNOSTIC COMPUTED TOMOGRAPHY THORAX W/CONTRAST Brandee Ramos APRN.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 [address] [place] [address] Ct Imaging Referral ID Status Reason Start Date Expiration Date Visits Requested Visits Authorized [id number] Additional Clinical Info Needed Auto-Generat ed Referral 2 04/15/2023 1 1 Specialty Diagnoses / Procedures Referred By Contac t Referred To Contact CT IMAGING Diagnoses 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) Other intra-abdominal and pelvic swelling, mass and lump Procedures CT ABD/PEL W IVCON CT ABD & PELVIS W/CONTRAST Brandee Ramos APRN.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 [address] [place] [address] Ct Imaging Referral ID Status Reason Start Date Expiration Date Visits Requested Visits Authorized [id number] Additional Clinical Info Needed Auto-Generat ed Referral 04/15/2023 1 1 Specialty Diagnoses / Procedures Referred By Contac t Referred To Contact Endocrinology Diagnoses Elevated testosterone level Procedures CONSULT TO ENDOCRINOLOGY OFFICE/OUTPATIENT [facility] 60-74 MINUTES Mariely Ruggiero MD [address] [place] [address] Referral ID Status Reason Start Date Expiration Date Visits Requested Visits Authorized [id number] Authorized PCP Requested Referral 03/02/2022 03/02/2023 1 1 Specialty Diagnoses / Procedures Referred By Contac t Referred To Contact Ent - Otolaryngology Diagnoses Nasal turbinate hypertrophy Procedures CONSULT TO ENT OFFICE/OUTPATIENT [facility] 60-74 MINUTES Karen Doshi MD [address] [facility] [place] [address] Kathy Glover DO [address] [place] [address] Referral ID Status Reason Start Date Expiration Date Visits Requested Visits Authorized [id number] Authorized PCP Requested Referral 10/02/2021 10/02/2022 1 1 Specialty Diagnoses / Procedures Referred By Contac t Referred To Contact [facility] Diagnoses Mild persistent asthma, unspecified whether complicated Procedures NITRIC OXIDE, EXHALED NITRIC OXIDE GAS DETERMINATION Karen Doshi MD [address] [facility] [place] [address] [facility] [place] [address] [place] [address] Referral ID Status Reason Start Date Expiration Date V isits Requested Visits Authorized [id number] Closed Auto-Generate d Referral 10/02/2021 11/01/2022 1 1 Specialty Diagnoses / Procedures Referred By Contac t Referred To Contact [facility] Diagnoses Mild persistent asthma, unspecified whether complicated Procedures SPIROMETRY BASELINE ONLY SPMTRY W/VC EXPIRATORY MARY W/WO MXML VOL VNTJ Karen Doshi MD [address] [facility] [place] [address] [facility] [address] [place] [address] [place] [address] Referral ID Status Reason Start Date Expiration Date V isits Requested Visits Authorized [id number] Closed Auto-Generate d Referral 10/02/2021 11/01/2022 1 1 Specialty Diagnoses / Procedures Referred By Contac t Referred To Contact Allergy Diagnoses Seasonal allergies Procedures CONSULT TO ALLERGY/IMMUNOLOGY OFFICE/OUTPATIENT [facility] 60-[place] [address] [place] [address] Referral ID Status Reason Start Date Expiration Date Visits Requested Visits Authorized [id number] Authorized PCP Requested Referral 09/30/2021 09/30/2022 1 1 Specialty Diagnoses / Procedures Referred By Contac t Referred To Contact Colon and Rectal Surgery Diagnoses Endometriosis Pelvic pain in female Procedures CONSULT TO COLO-RECTAL SURGERY OFFICE/OUTPATIENT [facility] 60-74 MINUTES Hellen Thomas DO [address] [place] [phone] Harley Alvarado DO [address] [place] [phone] Referral ID Status Reason Start Date Expiration Date Visits Requested Visits Authorized [id number] Authorized PCP Requested Referral 09/08/2021 09/08/2022 1 1 Specialty Diagnoses / Procedures Referred By Contac t Referred To Contact MR IMAGING Diagnoses Endometriosis Procedures MRI FEMALE PELVIS WO/W IVCON MRI PELVIS W/O & W/CONTRAST MATERIAL Hellen Thomas DO [address] [place] [address] Mr Imaging Referral ID Status Reason Start Date Expiration Date Visits Requested Visits Authorized [id number] Pending Review Auto-Generat ed Referral 06/26/2021 07/26/2022 1 1 Specialty Diagnoses / Procedures Referred By Contac t Referred To Contact [facility] Diagnoses Spastic pelvic floor syndrome Procedures CONSULT TO PHYSICAL THERAPY PHYSICAL THERAPY EVALUATION HIGH COMPLEX 45 MINS Hellen Thomas DO [address] [place] [address] [facility] [place] [address] [place] [address] Referral ID Status Reason Start Date Expiration Date Visits Requested Visits Authorized [id number] Pending Review Auto-Generat ed Referral 06/26/2021 06/26/2022 1 1 Additional Source Comments INFORMATION SOURCE (unrecogn ized section and content) DATE CREATED AUTHOR 09/15/2017 [facility] DATE CREATED AUTHOR AUTHOR'S ORGANIZ ATION 09/17/2017 [facility] DATE CREATED AUTHOR AUTHOR'S ORGANIZ ATION 11/23/2017 [facility] DATE CREATED AUTHOR AUTHOR'S ORGANIZ ATION 01/24/2018 [facility] DATE CREATED AUTHOR AUTHOR'S ORGANIZ ATION 08/04/2020 [facility] DATE CREATED AUTHOR AUTHOR'S ORGANIZ ATION 12/06/2020 [facility] DATE CREATED AUTHOR AUTHOR'S ORGANIZ ATION 12/27/2021 [facility] DATE CREATED AUTHOR AUTHOR'S ORGANIZ ATION 09/11/2022 [facility] DATE CREATED AUTHOR AUTHOR'S ORGANIZ ATION 09/27/2022 [facility] DATE CREATED AUTHOR AUTHOR'S ORGANIZ ATION 12/02/2022 [facility] DATE CREATED AUTHOR AUTHOR'S ORGANIZ ATION 12/11/2022 [facility] DATE CREATED AUTHOR AUTHOR'S ORGANIZ ATION 12/12/2022 [employer] DATE CREATED AUTHOR AUTHOR'S ORGANIZ ATION 04/11/2023 [facility] DATE CREATED AUTHOR AUTHOR'S ORGANIZ ATION 05/13/2023 [facility] DATE CREATED AUTHOR AUTHOR'S ORGANIZ ATION 06/21/2023 [facility] DATE CREATED AUTHOR AUTHOR'S ORGANIZ ATION 06/30/2023 [facility] DATE CREATED AUTHOR AUTHOR'S ORGANIZ ATION 07/14/2023 [facility] DATE CREATED AUTHOR AUTHOR'S ORGANIZ ATION 08/12/2023 [facility] DATE CREATED AUTHOR AUTHOR'S ORGANIZ ATION 09/12/2023 [facility] DATE CREATED AUTHOR AUTHOR'S ORGANIZ ATION 11/08/2023 [facility] DATE CREATED AUTHOR AUTHOR'S ORGANIZ ATION 11/09/2023 [facility] DATE CREATED AUTHOR AUTHOR'S ORGANIZ ATION 04/30/2024 [facility] DATE CREATED AUTHOR AUTHOR'S ORGANIZ ATION 07/12/2024 [facility] DATE CREATED AUTHOR AUTHOR'S ORGANIZ ATION 09/25/2024 [facility] DATE CREATED AUTHOR AUTHOR'S ORGANIZ ATION 10/19/2024 [facility] Goals (unrecognized section and content) Goals may be documented in a n alternate section Source Comments (unrecognize d section and content) In the event this informatio n is protected by the Federal Confidentiality of Alcohol and Drug Abuse Patient Records regulations: The Federal rules restrict any use of the information to criminally investigate or prosecute any alcohol or drug abuse patient.[facility] HealthcareIn the event this information is protected by the Federal Confidentiality of Alcohol and Drug Abuse Patient Records regulations: The Federal rules restrict any use of the information to criminally investigate or prosecute any alcohol or drug abuse patient.[facility] HealthcareIn the event this information is protected by the Federal Confidentiality of Alcohol and Drug Abuse Patient Records regulations: The Federal rules restrict any use of the information to criminally investigate or prosecute any alcohol or drug abuse patient.[facility] HealthcareIn the event this information is protected by the Federal Confidentiality of Alcohol and Drug Abuse Patient Records regulations: The Federal rules restrict any use of the information to criminally investigate or prosecute any alcohol or drug abuse patient.[facility] HealthcareIn the event this information is protected by the Federal Confidentiality of Alcohol and Drug Abuse Patient Records regulations: The Federal rules restrict any use of the information to criminally investigate or prosecute any alcohol or drug abuse patient.[facility] HealthcareIn the event this information is protected by the Federal Confidentiality of Alcohol and Drug Abuse Patient Records regulations: The Federal rules restrict any use of the information to criminally investigate or prosecute any alcohol or drug abuse patient.[facility] HealthcareIn the event this information is protected by the Federal Confidentiality of Alcohol and Drug Abuse Patient Records regulations: The Federal rules restrict any use of the information to criminally investigate or prosecute any alcohol or drug abuse patient.[facility] HealthcareIn the event this information is protected by the Federal Confidentiality of Alcohol and Drug Abuse Patient Records regulations: The Federal rules restrict any use of the information to criminally investigate or prosecute any alcohol or drug abuse patient.[facility] HealthcareIn the event this information is protected by the Federal Confidentiality of Alcohol and Drug Abuse Patient Records regulations: The Federal rules restrict any use of the information to criminally investigate or prosecute any alcohol or drug abuse patient.[facility] HealthcareIn the event this information is protected by the Federal Confidentiality of Alcohol and Drug Abuse Patient Records regulations: The Federal rules restrict any use of the information to criminally investigate or prosecute any alcohol or drug abuse patient.[facility] HealthcareIn the event this information is protected by the Federal Confidentiality of Alcohol and Drug Abuse Patient Records regulations: The Federal rules restrict any use of the information to criminally investigate or prosecute any alcohol or drug abuse patient.[facility] HealthcareIn the event this information is protected by the Federal Confidentiality of Alcohol and Drug Abuse Patient Records regulations: The Federal rules restrict any use of the information to criminally investigate or prosecute any alcohol or drug abuse patient.[facility] HealthcareIn the event this information is protected by the Federal Confidentiality of Alcohol and Drug Abuse Patient Records regulations: The Federal rules restrict any use of the information to criminally investigate or prosecute any alcohol or drug abuse patient.[facility] HealthcareIn the event this information is protected by the Federal Confidentiality of Alcohol and Drug Abuse Patient Records regulations: The Federal rules restrict any use of the information to criminally investigate or prosecute any alcohol or drug abuse patient.[facility] HealthcareIn the event this information is protected by the Federal Confidentiality of Alcohol and Drug Abuse Patient Records regulations: The Federal rules restrict any use of the information to criminally investigate or prosecute any alcohol or drug abuse patient.[facility] HealthcareIn the event this information is protected by the Federal Confidentiality of Alcohol and Drug Abuse Patient Records regulations: The Federal rules restrict any use of the information to criminally investigate or prosecute any alcohol or drug abuse patient.[facility] HealthcareIn the event this information is protected by the Federal Confidentiality of Alcohol and Drug Abuse Patient Records regulations: The Federal rules restrict any use of the information to criminally investigate or prosecute any alcohol or drug abuse patient.[facility] HealthcareIn the event this information is protected by the Federal Confidentiality of Alcohol and Drug Abuse Patient Records regulations: The Federal rules restrict any use of the information to criminally investigate or prosecute any alcohol or drug abuse patient.[facility] HealthcareIn the event this information is protected by the Federal Confidentiality of Alcohol and Drug Abuse Patient Records regulations: The Federal rules restrict any use of the information to criminally investigate or prosecute any alcohol or drug abuse patient.[facility] HealthcareIn the event this information is protected by the Federal Confidentiality of Alcohol and Drug Abuse Patient Records regulations: The Federal rules restrict any use of the information to criminally investigate or prosecute any alcohol or drug abuse patient.[facility] HealthcareIn the event this information is protected by the Federal Confidentiality of Alcohol and Drug Abuse Patient Records regulations: The Federal rules restrict any use of the information to criminally investigate or prosecute any alcohol or drug abuse patient.[facility] HealthcareIn the event this information is protected by the Federal Confidentiality of Alcohol and Drug Abuse Patient Records regulations: The Federal rules restrict any use of the information to criminally investigate or prosecute any alcohol or drug abuse patient.[facility] HealthcareIn the event this information is protected by the Federal Confidentiality of Alcohol and Drug Abuse Patient Records regulations: The Federal rules restrict any use of the information to criminally investigate or prosecute any alcohol or drug abuse patient.[facility] HealthcareIn the event this information is protected by the Federal Confidentiality of Alcohol and Drug Abuse Patient Records regulations: The Federal rules restrict any use of the information to criminally investigate or prosecute any alcohol or drug abuse patient.[facility] HealthcareIn the event this information is protected by the Federal Confidentiality of Alcohol and Drug Abuse Patient Records regulations: The Federal rules restrict any use of the information to criminally investigate or prosecute any alcohol or drug abuse patient.[facility] HealthcareIn the event this information is protected by the Federal Confidentiality of Alcohol and Drug Abuse Patient Records regulations: The Federal rules restrict any use of the information to criminally investigate or prosecute any alcohol or drug abuse patient.[facility] HealthcareIn the event this information is protected by the Federal Confidentiality of Alcohol and Drug Abuse Patient Records regulations: The Federal rules restrict any use of the information to criminally investigate or prosecute any alcohol or drug abuse patient.[facility] HealthcareIn the event this information is protected by the Federal Confidentiality of Alcohol and Drug Abuse Patient Records regulations: The Federal rules restrict any use of the information to criminally investigate or prosecute any alcohol or drug abuse patient.[facility] HealthcareIn the event this information is protected by the Federal Confidentiality of Alcohol and Drug Abuse Patient Records regulations: The Federal rules restrict any use of the information to criminally investigate or prosecute any alcohol or drug abuse patient.[facility] HealthcareIn the event this information is protected by the Federal Confidentiality of Alcohol and Drug Abuse Patient Records regulations: The Federal rules restrict any use of the information to criminally investigate or prosecute any alcohol or drug abuse patient.[facility] HealthcareIn the event this information is protected by the Federal Confidentiality of Alcohol and Drug Abuse Patient Records regulations: The Federal rules restrict any use of the information to criminally investigate or prosecute any alcohol or drug abuse patient.[facility] HealthcareIn the event this information is protected by the Federal Confidentiality of Alcohol and Drug Abuse Patient Records regulations: The Federal rules restrict any use of the information to criminally investigate or prosecute any alcohol or drug abuse patient.[facility] HealthcareIn the event this information is protected by the Federal Confidentiality of Alcohol and Drug Abuse Patient Records regulations: The Federal rules restrict any use of the information to criminally investigate or prosecute any alcohol or drug abuse patient.[facility] HealthcareIn the event this information is protected by the Federal Confidentiality of Alcohol and Drug Abuse Patient Records regulations: The Federal rules restrict any use of the information to criminally investigate or prosecute any alcohol or drug abuse patient.[facility] HealthcareIn the event this information is protected by the Federal Confidentiality of Alcohol and Drug Abuse Patient Records regulations: The Federal rules restrict any use of the information to criminally investigate or prosecute any alcohol or drug abuse patient.[facility] HealthcareIn the event this information is protected by the Federal Confidentiality of Alcohol and Drug Abuse Patient Records regulations: The Federal rules restrict any use of the information to criminally investigate or prosecute any alcohol or drug abuse patient.[facility] HealthcareIn the event this information is protected by the Federal Confidentiality of Alcohol and Drug Abuse Patient Records regulations: The Federal rules restrict any use of the information to criminally investigate or prosecute any alcohol or drug abuse patient.[facility] HealthcareIn the event this information is protected by the Federal Confidentiality of Alcohol and Drug Abuse Patient Records regulations: The Federal rules restrict any use of the information to criminally investigate or prosecute any alcohol or drug abuse patient.[facility] the event this information is protected by the Federal Confidentiality of Alcohol and Drug Abuse Patient Records regulations: The Federal rules restrict any use of the information to criminally investigate or prosecute any alcohol or drug abuse patient.[facility] HealthcareIn the event this information is protected by the Federal Confidentiality of Alcohol and Drug Abuse Patient Records regulations: The Federal rules restrict any use of the information to criminally investigate or prosecute any alcohol or drug abuse patient.[facility] HealthcareIn the event this information is protected by the Federal Confidentiality of Alcohol and Drug Abuse Patient Records regulations: The Federal rules restrict any use of the information to criminally investigate or prosecute any alcohol or drug abuse patient.[facility] HealthcareIn the event this information is protected by the Federal Confidentiality of Alcohol and Drug Abuse Patient Records regulations: The Federal rules restrict any use of the information to criminally investigate or prosecute any alcohol or drug abuse patient.[facility] HealthcareIn the event this information is protected by the Federal Confidentiality of Alcohol and Drug Abuse Patient Records regulations: The Federal rules restrict any use of the information to criminally investigate or prosecute any alcohol or drug abuse patient.[facility] HealthcareIn the event this information is protected by the Federal Confidentiality of Alcohol and Drug Abuse Patient Records regulations: The Federal rules restrict any use of the information to criminally investigate or prosecute any alcohol or drug abuse patient.[facility] HealthcareIn the event this information is protected by the Federal Confidentiality of Alcohol and Drug Abuse Patient Records regulations: The Federal rules restrict any use of the information to criminally investigate or prosecute any alcohol or drug abuse patient.[facility] HealthcareIn the event this information is protected by the Federal Confidentiality of Alcohol and Drug Abuse Patient Records regulations: The Federal rules restrict any use of the information to criminally investigate or prosecute any alcohol or drug abuse patient.[facility] HealthcareIn the event this information is protected by the Federal Confidentiality of Alcohol and Drug Abuse Patient Records regulations: The Federal rules restrict any use of the information to criminally investigate or prosecute any alcohol or drug abuse patient.[facility] HealthcareIn the event this information is protected by the Federal Confidentiality of Alcohol and Drug Abuse Patient Records regulations: The Federal rules restrict any use of the information to criminally investigate or prosecute any alcohol or drug abuse patient.[facility] HealthcareIn the event this information is protected by the Federal Confidentiality of Alcohol and Drug Abuse Patient Records regulations: The Federal rules restrict any use of the information to criminally investigate or prosecute any alcohol or drug abuse patient.[facility] HealthcareIn the event this information is protected by the Federal Confidentiality of Alcohol and Drug Abuse Patient Records regulations: The Federal rules restrict any use of the information to criminally investigate or prosecute any alcohol or drug abuse patient.[facility] HealthcareIn the event this information is protected by the Federal Confidentiality of Alcohol and Drug Abuse Patient Records regulations: The Federal rules restrict any use of the information to criminally investigate or prosecute any alcohol or drug abuse patient.[facility] HealthcareIn the event this information is protected by the Federal Confidentiality of Alcohol and Drug Abuse Patient Records regulations: The Federal rules restrict any use of the information to criminally investigate or prosecute any alcohol or drug abuse patient.[facility] HealthcareIn the event this information is protected by the Federal Confidentiality of Alcohol and Drug Abuse Patient Records regulations: The Federal rules restrict any use of the information to criminally investigate or prosecute any alcohol or drug abuse patient.[facility] HealthcareIn the event this information is protected by the Federal Confidentiality of Alcohol and Drug Abuse Patient Records regulations: The Federal rules restrict any use of the information to criminally investigate or prosecute any alcohol or drug abuse patient.[facility] HealthcareIn the event this information is protected by the Federal Confidentiality of Alcohol and Drug Abuse Patient Records regulations: The Federal rules restrict any use of the information to criminally investigate or prosecute any alcohol or drug abuse patient.[facility] HealthcareIn the event this information is protected by the Federal Confidentiality of Alcohol and Drug Abuse Patient Records regulations: The Federal rules restrict any use of the information to criminally investigate or prosecute any alcohol or drug abuse patient.[facility] HealthcareIn the event this information is protected by the Federal Confidentiality of Alcohol and Drug Abuse Patient Records regulations: The Federal rules restrict any use of the information to criminally investigate or prosecute any alcohol or drug abuse patient.[facility] HealthcareIn the event this information is protected by the Federal Confidentiality of Alcohol and Drug Abuse Patient Records regulations: The Federal rules restrict any use of the information to criminally investigate or prosecute any alcohol or drug abuse patient.[facility] HealthcareIn the event this information is protected by the Federal Confidentiality of Alcohol and Drug Abuse Patient Records regulations: The Federal rules restrict any use of the information to criminally investigate or prosecute any alcohol or drug abuse patient.[facility] HealthcareIn the event this information is protected by the Federal Confidentiality of Alcohol and Drug Abuse Patient Records regulations: The Federal rules restrict any use of the information to criminally investigate or prosecute any alcohol or drug abuse patient.[facility] HealthcareIn the event this information is protected by the Federal Confidentiality of Alcohol and Drug Abuse Patient Records regulations: The Federal rules restrict any use of the information to criminally investigate or prosecute any alcohol or drug abuse patient.[facility] HealthcareIn the event this information is protected by the Federal Confidentiality of Alcohol and Drug Abuse Patient Records regulations: The Federal rules restrict any use of the information to criminally investigate or prosecute any alcohol or drug abuse patient.[facility] HealthcareIn the event this information is protected by the Federal Confidentiality of Alcohol and Drug Abuse Patient Records regulations: The Federal rules restrict any use of the information to criminally investigate or prosecute any alcohol or drug abuse patient.[facility] HealthcareIn the event this information is protected by the Federal Confidentiality of Alcohol and Drug Abuse Patient Records regulations: The Federal rules restrict any use of the information to criminally investigate or prosecute any alcohol or drug abuse patient.[facility] HealthcareIn the event this information is protected by the Federal Confidentiality of Alcohol and Drug Abuse Patient Records regulations: The Federal rules restrict any use of the information to criminally investigate or prosecute any alcohol or drug abuse patient.[facility] HealthcareIn the event this information is protected by the Federal Confidentiality of Alcohol and Drug Abuse Patient Records regulations: The Federal rules restrict any use of the information to criminally investigate or prosecute any alcohol or drug abuse patient.[facility] HealthcareIn the event this information is protected by the Federal Confidentiality of Alcohol and Drug Abuse Patient Records regulations: The Federal rules restrict any use of the information to criminally investigate or prosecute any alcohol or drug abuse patient.[facility] HealthcareIn the event this information is protected by the Federal Confidentiality of Alcohol and Drug Abuse Patient Records regulations: The Federal rules restrict any use of the information to criminally investigate or prosecute any alcohol or drug abuse patient.[facility] HealthcareIn the event this information is protected by the Federal Confidentiality of Alcohol and Drug Abuse Patient Records regulations: The Federal rules restrict any use of the information to criminally investigate or prosecute any alcohol or drug abuse patient.[facility] HealthcareIn the event this information is protected by the Federal Confidentiality of Alcohol and Drug Abuse Patient Records regulations: The Federal rules restrict any use of the information to criminally investigate or prosecute any alcohol or drug abuse patient.[facility] HealthcareIn the event this information is protected by the Federal Confidentiality of Alcohol and Drug Abuse Patient Records regulations: The Federal rules restrict any use of the information to criminally investigate or prosecute any alcohol or drug abuse patient.[facility] HealthcareIn the event this information is protected by the Federal Confidentiality of Alcohol and Drug Abuse Patient Records regulations: The Federal rules restrict any use of the information to criminally investigate or prosecute any alcohol or drug abuse patient.[facility] HealthcareIn the event this information is protected by the Federal Confidentiality of Alcohol and Drug Abuse Patient Records regulations: The Federal rules restrict any use of the information to criminally investigate or prosecute any alcohol or drug abuse patient.[facility] HealthcareIn the event this information is protected by the Federal Confidentiality of Alcohol and Drug Abuse Patient Records regulations: The Federal rules restrict any use of the information to criminally investigate or prosecute any alcohol or drug abuse patient.[facility] HealthcareIn the event this information is protected by the Federal Confidentiality of Alcohol and Drug Abuse Patient Records regulations: The Federal rules restrict any use of the information to criminally investigate or prosecute any alcohol or drug abuse patient.[facility] HealthcareIn the event this information is protected by the Federal Confidentiality of Alcohol and Drug Abuse Patient Records regulations: The Federal rules restrict any use of the information to criminally investigate or prosecute any alcohol or drug abuse patient.[facility] HealthcareIn the event this information is protected by the Federal Confidentiality of Alcohol and Drug Abuse Patient Records regulations: The Federal rules restrict any use of the information to criminally investigate or prosecute any alcohol or drug abuse patient.[facility] HealthcareIn the event this information is protected by the Federal Confidentiality of Alcohol and Drug Abuse Patient Records regulations: The Federal rules restrict any use of the information to criminally investigate or prosecute any alcohol or drug abuse patient.[facility] HealthcareIn the event this information is protected by the Federal Confidentiality of Alcohol and Drug Abuse Patient Records regulations: The Federal rules restrict any use of the information to criminally investigate or prosecute any alcohol or drug abuse patient.[facility] HealthcareIn the event this information is protected by the Federal Confidentiality of Alcohol and Drug Abuse Patient Records regulations: The Federal rules restrict any use of the information to criminally investigate or prosecute any alcohol or drug abuse patient.[facility] HealthcareIn the event this information is protected by the Federal Confidentiality of Alcohol and Drug Abuse Patient Records regulations: The Federal rules restrict any use of the information to criminally investigate or prosecute any alcohol or drug abuse patient.[facility] HealthcareIn the event this information is protected by the Federal Confidentiality of Alcohol and Drug Abuse Patient Records regulations: The Federal rules restrict any use of the information to criminally investigate or prosecute any alcohol or drug abuse patient.[facility] HealthcareIn the event this information is protected by the Federal Confidentiality of Alcohol and Drug Abuse Patient Records regulations: The Federal rules restrict any use of the information to criminally investigate or prosecute any alcohol or drug abuse patient.[facility] HealthcareIn the event this information is protected by the Federal Confidentiality of Alcohol and Drug Abuse Patient Records regulations: The Federal rules restrict any use of the information to criminally investigate or prosecute any alcohol or drug abuse patient.[facility] HealthcareIn the event this information is protected by the Federal Confidentiality of Alcohol and Drug Abuse Patient Records regulations: The Federal rules restrict any use of the information to criminally investigate or prosecute any alcohol or drug abuse patient.[facility] HealthcareIn the event this information is protected by the Federal Confidentiality of Alcohol and Drug Abuse Patient Records regulations: The Federal rules restrict any use of the information to criminally investigate or prosecute any alcohol or drug abuse patient.[facility] HealthcareIn the event this information is protected by the Federal Confidentiality of Alcohol and Drug Abuse Patient Records regulations: The Federal rules restrict any use of the information to criminally investigate or prosecute any alcohol or drug abuse patient.[facility] HealthcareIn the event this information is protected by the Federal Confidentiality of Alcohol and Drug Abuse Patient Records regulations: The Federal rules restrict any use of the information to criminally investigate or prosecute any alcohol or drug abuse patient.[facility] the event this information is protected by the Federal Confidentiality of Alcohol and Drug Abuse Patient Records regulations: The Federal rules restrict any use of the information to criminally investigate or prosecute any alcohol or drug abuse patient.[facility] HealthcareIn the event this information is protected by the Federal Confidentiality of Alcohol and Drug Abuse Patient Records regulations: The Federal rules restrict any use of the information to criminally investigate or prosecute any alcohol or drug abuse patient.[facility] HealthcareIn the event this information is protected by the Federal Confidentiality of Alcohol and Drug Abuse Patient Records regulations: The Federal rules restrict any use of the information to criminally investigate or prosecute any alcohol or drug abuse patient.[facility] HealthcareIn the event this information is protected by the Federal Confidentiality of Alcohol and Drug Abuse Patient Records regulations: The Federal rules restrict any use of the information to criminally investigate or prosecute any alcohol or drug abuse patient.[facility] HealthcareIn the event this information is protected by the Federal Confidentiality of Alcohol and Drug Abuse Patient Records regulations: The Federal rules restrict any use of the information to criminally investigate or prosecute any alcohol or drug abuse patient.[facility] HealthcareIn the event this information is protected by the Federal Confidentiality of Alcohol and Drug Abuse Patient Records regulations: The Federal rules restrict any use of the information to criminally investigate or prosecute any alcohol or drug abuse patient.[facility] HealthcareIn the event this information is protected by the Federal Confidentiality of Alcohol and Drug Abuse Patient Records regulations: The Federal rules restrict any use of the information to criminally investigate or prosecute any alcohol or drug abuse patient.[facility] HealthcareIn the event this information is protected by the Federal Confidentiality of Alcohol and Drug Abuse Patient Records regulations: The Federal rules restrict any use of the information to criminally investigate or prosecute any alcohol or drug abuse patient.[facility] HealthcareIn the event this information is protected by the Federal Confidentiality of Alcohol and Drug Abuse Patient Records regulations: The Federal rules restrict any use of the information to criminally investigate or prosecute any alcohol or drug abuse patient.[facility] HealthcareIn the event this information is protected by the Federal Confidentiality of Alcohol and Drug Abuse Patient Records regulations: The Federal rules restrict any use of the information to criminally investigate or prosecute any alcohol or drug abuse patient.[facility] Reason for Visit (unrecogniz ed section and content) Reason Comments Physical Therapy Specialty Diagnoses / Procedures Referred By Fernando t Referred To Contact [facility] Diagnoses Strain of gastrocnemius muscle of left lower extremity, initial encounter Procedures PT REHAB FOLLOW UP ORDER THERAPEUTIC EXERCISES RE, EA 15 MIN. Tamika Platt, PT [facility] [place] [address] [place] [address] Referral ID Status Reason Start Date Expiration Date Visits Requested Visits Authorized [id number] Authorized PCP Requested Referral Auto-Generate d Referral 03/28/2023 5 5 Reason Comments Pelvic Pain Specialty Diagnoses / Procedures Referred By Contac t Referred To Contact Diagnoses Endometriosis Procedures CONSULT TO MINIMALLY INVASIVE GYNECOLOGIC SURGERY NEW PATIENT [place]IT [place] [place] [address] [place] [address] Referral ID Status Reason Start Date Expiration Date V isits Requested Visits Authorized [id number] Closed PCP Requested Referral Auto-Generated Referral 03/26/2021 03/26/2022 1 1 Reason Comments Derm Problem dry, peeling skin Reason Comments Sinus Problem Reason Comments Follow Up rash, head, foot and thigh Reason Comments Allergies Asthma Specialty Diagnoses / Procedures Referred By Contac t Referred To Contact Allergy Diagnoses Seasonal allergies Procedures CONSULT TO ALLERGY/IMMUNOLOGY OFFICE/OUTPATIENT NEW HIGH [facility] 60-[place] [address] [place] [address] Referral ID Status Reason Start Date Expiration Date V isits Requested Visits Authorized [id number] Closed PCP Requested Referral 09/30/2021 09/30/2022 1 1 Reason Comments Spirometry Specialty Diagnoses / Procedures Referred By Contac t Referred To Contact [facility] Diagnoses Mild persistent asthma, unspecified whether complicated Procedures NITRIC OXIDE, EXHALED NITRIC OXIDE GAS DETERMINATION Karen Doshi MD [address] [facility] [place] [address] [facility] [address] [place], [place] [id number] Referral ID Status Reason Start Date Expiration Date V isits Requested Visits Authorized [id number] Closed Auto-Generate d Referral 10/02/2021 11/01/2022 1 1 Specialty Diagnoses / Procedures Referred By Contac t Referred To Contact [facility] Diagnoses Mild persistent asthma, unspecified whether complicated Procedures SPIROMETRY BASELINE ONLY SPMTRY W/VC EXPIRATORY MARY W/WO MXML VOL VNTJ Karen Doshi MD [address] [facility] [place] [address] [facility] [place] [address] Referral ID Status Reason Start Date Expiration Date V isits Requested Visits Authorized [id number] Closed Auto-Generate d Referral 10/02/2021 11/01/2022 1 1 Reason Comments Insurance Authorization tacrolimus 0.1% ointment Reason Comments Consult Specialty Diagnoses / Procedures Referred By Contac t Referred To Contact Colon and Rectal Surgery Diagnoses Endometriosis Pelvic pain in female Procedures CONSULT TO COLO-RECTAL SURGERY OFFICE/OUTPATIENT NEW HIGH [facility] 60-74 MINUTES Hellen Thomas, DO [address] [place] [place] [phone] Harley Alvarado, DO [address] [phone] Referral ID Status Reason Start Date Expiration Date V isits Requested Visits Authorized [id number] Closed PCP Requested Referral 09/08/2021 09/08/2022 1 [...] DIAGNOSTIC COMPUTED TOMOGRAPHY THORAX W/CONTRAST Brandee Ramos, DESIGNER.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 [address] [place] [address] Ct Imaging Referral ID Status Reason Start Date Expiration Date V isits Requested Visits Authorized [id number] Closed Auto-Generat ed Referral Patient Cleared - Admin/Chairm an/Director advise to proceed 03/17/2022 05/16/2022 1 1 Reason Comments Vaginal Bleeding Reason Comments Consult Cancer 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 Reason Comments Results Reason [...] 30-34.9 Procedures ENDOCRINE MEDICAL WEIGHT MANAGEMENT OFFICE/OUTPATIENT NEW HIGH [facility] 60-[place] [address] [place] [place] [phone] Referral ID Status Reason Start Date Expiration Date V isits Requested Visits Authorized [id number] Closed PCP Requested Referral 09/11/2022 09/11/2023 1 [...] HIGH COMPLEX 45 MINS Ky Ford MD [address] [place] [address] [facility] [place] [address] [place], [place] [address] Referral ID Status Reason Start Date Expiration Date V isits Requested Visits Authorized [id number] Closed Auto-Generate d Referral 01/20/2023 02/25/2023 1 1 Reason Onset Date Comments Refill Request 01/29/2023 Reason Comments Radiology US Specialty Diagnoses / Procedures Referred By Contac t Referred To Contact US IMAGING Diagnoses Kidney stone Procedures US KIDNEY/BLADDER US RETROPERITONEAL REAL TIME W/IMAGE COMPLETE Selin Arellano, DESIGNER.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 [address] [place] [address] [facility] [place] [address] Referral ID Status Reason Start Date Expiration Date V isits Requested Visits Authorized [id number] Closed Auto-Generate d Referral 03/13/2022 04/12/2023 1 1 Reason Comments Radiology US Specialty Diagnoses / Procedures Referred By Contac t Referred To Contact US IMAGING Diagnoses S/P laparoscopic hysterectomy Pelvic pain in female Abnormality present on gross pathology S/P ovarian cystectomy Procedures US FEMALE PELVIS TRANSVAG US TRANSVAGINAL Ofelia Guzman, DESIGNER.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 [address] [place] [address] [place] [address] Referral ID Status Reason Start Date Expiration Date V isits Requested Visits Authorized [id number] Closed Auto-Generate d Referral 10/19/2022 05/21/2023 1 1 Reason Comments Established Patient Specialty Diagnoses / Procedures Referred By Contac t Referred To Contact MR IMAGING Diagnoses Spinal stenosis of cervical region Procedures MRI CERVICAL SPINE WO IVCON MRI SPINAL CANAL CERVICAL W/O CONTRAST MATRL Serjio Thompson MD [address] [place] [address] [place] [address] Referral ID Status Reason Start Date Expiration Date V isits Requested Visits Authorized [id number] Closed Auto-Generat ed Referral Patient Cleared - Admin/Chairm an/Director advise to proceed or did not respond 01/26/2023 03/27/2023 1 1 Specialty Diagnoses / Procedures Referred By Contac t Referred To Contact MR IMAGING Diagnoses Spinal stenosis of lumbar region, unspecified whether neurogenic claudication present Procedures MRI LUMBAR SPINE WO IVCON MRI SPINAL CANAL LUMBAR W/O CONTRAST MATERIAL Serjio Thompson MD [address] [place] [address] Mr Imaging [id number] Referral ID Status Reason Start Date Expiration Date V isits Requested Visits Authorized [id number] Closed Auto-Generat ed Referral Clearance Not Met - Admin/Chairm an/Director Advise to Postpone/Res chedule or Not Proceed 01/26/2023 03/27/2023 1 1 Reason Comments New Patient Reason Comments Follow-up Reason Comments Follow Up Specialty Diagnoses / Procedures Referred By Contac t Referred To Contact MR IMAGING Diagnoses Other injury of unspecified muscle(s) and tendon(s) at lower leg level, unspecified leg, initial encounter Procedures MRI LOWER LEG WO IVCON LEFT MRI LOWER EXTREM OTH/THN JT W/O CONTR Ky Don MD [address] [place] [address] [place] [address] Referral ID Status Reason Start Date Expiration Date V isits Requested Visits Authorized [id number] Closed Auto-Generate d Referral 05/26/2023 07/25/2023 1 1 Reason Comments Derm Problem Reason Comments New Patient Evaluation Neck Pain Posterior Back Pain Lower Specialty Diagnoses / Procedures Referred By Contac t Referred To Contact Pain Management Diagnoses Radiculopathy, cervical region Chronic midline low back pain without sciatica Procedures CONSULT TO PAIN MGT Serjio Thompson MD [address] [place] [address] Referral ID Status Reason Start Date Expiration Date Visits Requested Visits Authorized [id number] Ref Not Required PCP Requested Referral 06/03/2023 06/02/2024 1 1 Reason Comments Medical Nutrition Therapy PCOS/ Prediabe damir/ Weight Management Reason Comments Nutrition Counseling Consult Reason Comments Joint Pain Nurse Visit Specialty Diagnoses / Procedures Referred By Contac t Referred To Contact Rheumatology Diagnoses Mixed connective tissue disease (HCC) Procedures CONSULT TO RHEUM/IMMUN DISEASE OFFICE/OUTPATIENT NEW HIGH [facility] 60 MINUTES Zainab Duckworth MD [address] [facility] [address] [place] [address] Referral ID Status Reason Start Date Expiration Date V isits Requested Visits Authorized [id number] Closed PCP Requested Referral 07/08/2023 07/07/2024 1 1 Reason Comments Acne Specialty Diagnoses / Procedures Referred By Contac t Referred To Contact Radiology Diagnoses Endometriosis Procedures MR pelvis w and wo IV contrast MR pelvis w IV contrast Canelo Pina, DESIGNER-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 [address] [place] [address] Referral ID Status Reason Start Date Expiration Date Visits Requested Visits Authorized [id number] Authorized Perform Procedure 07/30/2023 07/29/2024 1 1 Reason Comments Insurance Authorization MRI pelvis eunice l GOPAL Reason Comments Joint Pain Reason Comments Acne Reason Comments Radio Gen RMP Specialty Diagnoses / Procedures Referred By Contac t Referred To Contact XR IMAGING Diagnoses Pain Procedures XR KNEE GENERAL 4V AP BOTH/PA BOTH/LAT/MERC LEFT RADIOLOGIC EXAM KNEE COMPLETE 4/MORE VIEWS Ky Ford MD [address] [place] [address] [place] [address] Referral ID Status Reason Start Date Expiration Date V isits Requested Visits Authorized [id number] Closed Auto-Generate d Referral 01/04/2023 02/03/2024 1 1 Reason Comments New Patient Transfer of care for malignant neoplasm of left ovary. Specialty Diagnoses / Procedures Referred By Fernando t Referred To Contact Gynecological Oncology Diagnoses Malignant neoplasm of left ovary Rudy BranchDO [address] [place] [address] [place] [address] [facility] [address] [place] [address] Referral ID Status Reason Start Date Expiration Date V isits Requested Visits Authorized [id number] New Request 12/14/2023 01/07/2025 1 1 Specialty Diagnoses / Procedures Referred By Contac t Referred To Contact Radiology Diagnoses Endometriosis Procedures US pelvis transvaginal Melissa Fernán[place] [address] [place] [address] Referral ID Status Reason Start Date Expiration Date Visits Requested Visits Authorized [id number] Authorized Perform Procedure 10/05/2023 10/04/2024 1 1 Reason Onset Date Comments Other 05/06/2022 Reason Comments Follow-up Pt would like a [place] opinion, Dr Rudy Martinez told her to come here again. Reason Comments Follow-up Reason Comments Dizziness L ear muffled and hi gh pitched noise x3 days, causing vertigo and nausea Rash R lower abd local re action to Humira injection x1 day, has one hive spot L thigh Care Teams (unrecognized sec tion and content) Biochemistry Specialist Relationship Specialty Start Date End Date Rudy BranchDO [address] [place] [address] PCP - General Family Practice 11/04/17 Ky Carter MD Physician Neurology 07/19/18 Saida Perera DO Primary Staff Physician Nephrology 04/24/21 Biochemistry Specialist Relationship Specialty Start Date End Date Rudy Branch, DO [address] [place], [place] [id number] PCP - General Family Practice 11/04/17 Ky Carter MD Physician Neurology 07/19/18 Saida Perera DO Primary Staff Physician Nephrology 04/24/21 Biochemistry Specialist Relationship Specialty Start Date End Date Rudy Branch DO [address] [place], [place] [id number] PCP - General Family Practice 11/04/17 Ky Carter MD Physician Neurology 07/19/18 Saida Perera DO Primary Staff Physician Nephrology 04/24/21 Biochemistry Specialist Relationship Specialty Start Date End Date Rudy Branch DO [address] [place], [place] [id number] PCP - General Family Practice 11/04/17 Ky Carter MD Physician Neurology 07/19/18 Saida Perera DO Primary Staff Physician Nephrology 04/24/21 Biochemistry Specialist Relationship Specialty Start Date End Date Rudy Branch, DO [address] [place], [place] [id number] PCP - General Family Practice 11/04/17 Ky Carter MD Physician Neurology 07/19/18 Saida Perera DO Primary Staff Physician Nephrology 04/24/21 Biochemistry Specialist Relationship Specialty Start Date End Date Rudy Branch DO [address] [place], [place] [id number] PCP - General Family Practice 11/04/17 Ky Carter MD Physician Neurology 07/19/18 Saida Perera DO Primary Staff Physician Nephrology 04/24/21 Biochemistry Specialist Relationship Specialty Start Date End Date Rudy Branch DO [address] [place], [place] [id number] PCP - General Family Practice 11/04/17 Ky Carter MD Physician Neurology 07/19/18 Saida Perera DO Primary Staff Physician Nephrology 04/24/21 Biochemistry Specialist Relationship Specialty Start Date End Date Rudy Branch, DO [address] [place], [place] [id number] PCP - General Family Practice 11/04/17 Ky Carter MD Physician Neurology 07/19/18 Saida Perera DO Primary Staff Physician Nephrology 04/24/21 Biochemistry Specialist Relationship Specialty Start Date End Date Rudy Branch, DO [address] [place], [place] [phone] PCP - General Family Practice 11/04/17 Ky Carter MD Physician Neurology 07/19/18 Saida Perera DO Primary Staff Physician Nephrology 04/24/21 Biochemistry Specialist Relationship Specialty Start Date End Date Rudy Branch DO [address] [place], [place] [id number] PCP - General Family Practice 11/04/17 Ky Carter MD Physician Neurology 07/19/18 Saida Perera DO Primary Staff Physician Nephrology 04/24/21 Biochemistry Specialist Relationship Specialty Start Date End Date Rudy Branch DO [address] [place] [address] PCP - General Family Practice 11/04/17 Ky Carter MD Physician Neurology 07/19/18 Saida Perera DO Primary Staff Physician Nephrology 04/24/21 Biochemistry Specialist Relationship Specialty Start Date End Date Rudy Branch DO [address] [place], [place] [id number] PCP - General Family Practice 11/04/17 Ky Carter MD Physician Neurology 07/19/18 Saida Perera DO Primary Staff Physician Nephrology 04/24/21 Biochemistry Specialist Relationship Specialty Start Date End Date Rudy Branch DO [address] [place], [place] [phone] PCP - General Family Practice 11/04/17 Ky Carter MD Physician Neurology 07/19/18 Saida Perera DO Primary Staff Physician Nephrology 04/24/21 Biochemistry Specialist Relationship Specialty Start Date End Date Rudy Branch, DO [address] [place], [place] [phone] PCP - General Family Practice 11/04/17 Ky Carter MD Physician Neurology 07/19/18 Saida Perera DO Primary Staff Physician Nephrology 04/24/21 Biochemistry Specialist Relationship Specialty Start Date End Date Rudy Branch, DO [address] [place], [place] [id number] PCP - General Family Practice 11/04/17 Ky Carter MD Physician Neurology 07/19/18 Saida Perera DO Primary Staff Physician Nephrology 04/24/21 Biochemistry Specialist Relationship Specialty Start Date End Date Rudy Branch, DO [address] [place], [place] [id number] PCP - General Family Practice 11/04/17 Ky Carter MD Physician Neurology 07/19/18 DilmaSaida do DO Primary Staff Physician Nephrology 04/24/21 Biochemistry Specialist Relationship Specialty Start Date End Date Rudy Branch, DO [address] [place], [place] [address] PCP - General Family Medicine 11/04/17 Ky Carter MD Physician Neurology 07/19/18 Saida Perera DO Primary Staff Physician Nephrology 04/24/21 Biochemistry Specialist Relationship Specialty Start Date End Date Rudy Branch DO [address] [place], [place] [id number] PCP - General Family Medicine 11/04/17 Ky Carter MD Physician Neurology 07/19/18 Saida Perera DO Primary Staff Physician Nephrology 04/24/21 Biochemistry Specialist Relationship Specialty Start Date End Date Rudy Branch, DO [address] [place], [place] [phone] PCP - General Family Medicine 11/04/17 Ky Carter MD Physician Neurology 07/19/18 Saida Perera DO Primary Staff Physician Nephrology 04/24/21 Biochemistry Specialist Relationship Specialty Start Date End Date Rudy Branch, DO [address] [place], [place] [address] PCP - General Family Medicine 11/04/17 Ky Carter MD Physician Neurology 07/19/18 Saida Perera DO Primary Staff Physician Nephrology 04/24/21 Biochemistry Specialist Relationship Specialty Start Date End Date Rudy Branch DO [address] [place] [address] PCP - General Family Medicine 11/04/17 Ky Carter MD [address] [place] [address] Physician Neurology 07/19/18 Saida Perera DO [address] [place] [address] Primary Staff Physician Nephrology 04/24/21 Biochemistry Specialist Relationship Specialty Start Date End Date Rudy Branch DO [address] [place] [address] PCP - General Family Medicine 11/04/17 Ky Carter MD [address] [place] [address] Physician Neurology 07/19/18 Saida Perera DO [address] [place] [address] Primary Staff Physician Nephrology 04/24/21 Biochemistry Specialist Relationship Specialty Start Date End Date Rudy Branch DO [address] [place] [address] PCP - General Family Medicine 11/04/17 Ky Carter MD [address] [place] [address] Physician Neurology 07/19/18 Saida Perera DO [address] [place] [address] Primary Staff Physician Nephrology 04/24/21 Biochemistry Specialist Relationship Specialty Start Date End Date Rudy Branch DO [address] [place] [address] PCP - General Family Medicine 11/04/17 Ky Carter MD [address] [place] [address] Physician Neurology 07/19/18 Saida Perera, [address] [place] [address] Primary Staff Physician Nephrology 04/24/21 Biochemistry Specialist Relationship Specialty Start Date End Date Rudy Branch DO [address] [place] [address] PCP - General Family Medicine 11/04/17 Ky Carter MD [address] [place] [address] Physician Neurology 07/19/18 Saida Perera DO [address] [place] [address] Primary Staff Physician Nephrology 04/24/21 Biochemistry Specialist Relationship Specialty Start Date End Date Rudy Branch DO [address] [place] [address] PCP - General Family Medicine 11/04/17 Ky Carter MD [address] [place] [address] Physician Neurology 07/19/18 Saida Perera, [address] [place] [address] Primary Staff Physician Nephrology 04/24/21 Biochemistry Specialist Relationship Specialty Start Date End Date Rudy Branch DO [address] [place] [address] PCP - General Family Medicine 11/04/17 Ky Carter MD [address] [place] [address] Physician Neurology 07/19/18 Saida Perera, [address] [place] [address] Primary Staff Physician Nephrology 04/24/21 Biochemistry Specialist Relationship Specialty Start Date End Date Rudy Branch DO [address] [place] [address] PCP - General Family Medicine 11/04/17 Ky Carter MD [address] [place] [address] Physician Neurology 07/19/18 Saida Perera DO [address] [place] [address] Primary Staff Physician Nephrology 04/24/21 Biochemistry Specialist Relationship Specialty Start Date End Date Rudy Branch DO [address] [place] [address] PCP - General Family Medicine 11/04/17 Ky Carter MD [address] [place] [address] Physician Neurology 07/19/18 Saida Perera DO [address] [place] [address] Primary Staff Physician Nephrology 04/24/21 Biochemistry Specialist Relationship Specialty Start Date End Date Rudy Branch DO [address] [place] [address] PCP - General Family Medicine 11/04/17 Ky Carter MD [address] [place] [address] Physician Neurology 07/19/18 Saida Perera DO [address] [place] [address] Primary Staff Physician Nephrology 04/24/21 Biochemistry Specialist Relationship Specialty Start Date End Date Rudy Branch DO [address] [place] [address] PCP - General Family Medicine 11/04/17 Ky Carter MD [address] [place] [address] Physician Neurology 07/19/18 Saida Perera DO [address] [place] [address] Primary Staff Physician Nephrology 04/24/21 Biochemistry Specialist Relationship Specialty Start Date End Date Rudy Branch DO [address] [place] [address] PCP - General Family Medicine 11/04/17 Ky Carter MD [address] [place] [address] Physician Neurology 07/19/18 Saida Perera DO [address] [place] [address] Primary Staff Physician Nephrology 04/24/21 Biochemistry Specialist Relationship Specialty Start Date End Date Rudy Branch DO [address] [place] [address] PCP - General Family Medicine 11/04/17 Ky Carter MD [address] [place] [address] Physician Neurology 07/19/18 Saida Perera DO [address] [place] [id number] Primary Staff Physician Nephrology 04/24/21 Team Status: Active Member Role Status Dates Dr. Rudy Branch DO Family Provider Active Dr. Rudy Branch DO Primary Care Provider Active Team Status: Inactive Member Role Status Dates Dr. Rudy Branch DO Primary Care Provider, Referrin g Provider Active Dr. Mia Meehan MD Attending Provider Active Team Status: Inactive Member Role Status Dates Dr. Rudy Branch DO Primary Care Provider, Attendin g Provider Active Team Status: Inactive Member Role Status Dates Dr. Rudy Branch DO Primary Care Provider Active Dr. Saida Andino DO Attending Provider, Emergency P aman Active Team Status: Active Member Role Status Dates Dr. Rudy Branch DO Primary Care Provider, Attendin g Provider Active Team Status: Inactive Member Role Status Dates Dr. Rudy Branch DO Primary Care Provider Active Dr. Lazarus Lou MD Emergency Provider Active Team Status: Inactive Member Role Status Dates Dr. Rudy Branch DO Primary Care Provider, Referrin g Provider Active Estefani Carvajal CORE MOUNTER, CORE MOUNTER-C Attending Provider Active Team Status: Inactive Member Role Status Dates Dr. Rudy Branch DO Primary Care Provider Active Dr. Lazarus Lou MD Attending Provider, Emergency Provider Active Team Status: Inactive Member Role Status Dates Dr. Rudy Branch DO Primary Care Prov ider, Attending Provider, Referring Provider Active Biochemistry Specialist Relationship Specialty Start Date End Date Rudy Branch DO [address] [place] [address] PCP - General Family Medicine 11/04/17 Ky Carter MD [address] [place] [address] Physician Neurology 07/19/18 Saida Perera DO [address] [place] [address] Primary Staff Physician Nephrology 04/24/21 Biochemistry Specialist Relationship Specialty Start Date End Date Rudy Branch DO [address] [place] [address] PCP - General Family Medicine 11/04/17 Ky Carter MD [address] [place] [address] Physician Neurology 07/19/18 Saida Perera DO [address] [place] [address] Primary Staff Physician Nephrology 04/24/21 Team Status: Active Member Role Status Dates Dr. Rudy Branch DO Primary Care Prov ider, Attending Provider, Referring Provider Active Team Status: Inactive Member Role Status Dates Dr. Rudy Branch DO Primary Care Provider Active Dr. Nato Briseno MD Emergency Provider Active Biochemistry Specialist Relationship Specialty Start Date End Date Rudy Branch DO [address] [address] PCP - General Family Medicine 11/04/17 Ky Carter MD [address] [place] [address] Physician Neurology 07/19/18 Saida Perera DO [address] [place] [address] Primary Staff Physician Nephrology 04/24/21 Biochemistry Specialist Relationship Specialty Start Date End Date Rudy Branch DO [address] [place] [address] PCP - General Family Medicine 11/04/17 Ky Carter MD [address] [place] [address] Physician Neurology 07/19/18 Saida Perera DO [address] [place] [address] Primary Staff Physician Nephrology 04/24/21 Biochemistry Specialist Relationship Specialty Start Date End Date Rudy Branch DO [address] [place] [address] PCP - General Family Medicine 11/04/17 Ky Carter MD [address] [place] [address] Physician Neurology 07/19/18 Saida Perera DO [address] [place] [address] Primary Staff Physician Nephrology 04/24/21 Team Status: Inactive Member Role Status Dates Dr. Rudy Branch DO Primary Care Provider Active Dr. Nato Briseno MD Attending Provider, Emergency Provider Active Team Status: Inactive Member Role Status Dates Dr. Rudy Branch , DO Primary Care Provider Active Dr. Logan Junior , DO Attending Provider, Referring Provider Active Team Status: Inactive Member Role Status Dates Dr. Rudy Branch , DO Primary Care Prov ider, Attending Provider, Referring Provider Active Dr. Logan Junior , DO Other Provider Active Biochemistry Specialist Relationship Specialty Start Date End Date Rudy Branch DO [address] [place] [address] PCP - General Family Medicine 11/04/17 Ky Carter MD [address] [place] [address] Physician Neurology 07/19/18 Saida Perera DO [address] [place] [address] Primary Staff Physician Nephrology 04/24/21 Biochemistry Specialist Relationship Specialty Start Date End Date Rudy Branch DO [address] [place] [address] PCP - General Family Medicine 11/04/17 Ky Carter MD [address] [place] [address] Physician Neurology 07/19/18 Saida Perera DO [address] [place] [address] Primary Staff Physician Nephrology 04/24/21 Team Status: Active Member Role Status Dates Dr. Rudy Branch , DO Primary Care Provider Active GERSON CAIN SR Attending Provider, Referring Provi bell Active Biochemistry Specialist Relationship Specialty Start Date End Date Rudy Branch [address] [place], [place] [id number] PCP - General Family Medicine 11/04/17 Ky Carter MD [address] [place] [address] Physician Neurology 07/19/18 Saida Perera DO [address] [place], [place] [address] Primary Staff Physician Nephrology 04/24/21 Biochemistry Specialist Relationship Specialty Start Date End Date Rudy Branch [address] [place] [phone] PCP - General 01/24/19 Wilmar Davis MD [address] [place] [address], [address] [place], [place] [id number] Consulting Physician Gynecologic Oncology 05/04/22 Biochemistry Specialist Relationship Specialty Start Date End Date Rudy Branch [address] [place], [place] [address] PCP - General Family Medicine 11/04/17 Ky Carter MD [address] [place], [place] [address] Physician Neurology 07/19/18 Saida Perera DO [address] [place] [address] Primary Staff Physician Nephrology 04/24/21 Biochemistry Specialist Relationship Specialty Start Date End Date Jose CarlosRudy whitmoreDO [address] [place], [place] [address] PCP - General Family Medicine 11/04/17 Ky Carter MD [address] [place] [address] Physician Neurology 07/19/18 Saida Perera DO [address] [place] [address] Primary Staff Physician Nephrology 04/24/21 Biochemistry Specialist Relationship Specialty Start Date End Date Jose Carlos Rudy HerreraDO [address] [place] [address] PCP - General Family Medicine 11/04/17 Ky Carter MD [address] [place] [address] Physician Neurology 07/19/18 aSida Perera DO [address] [place] [address] Primary Staff Physician Nephrology 04/24/21 Biochemistry Specialist Relationship Specialty Start Date End Date Jose Carlos Rudy HerreraDO [address] [place], [place] [id number] PCP - General Family Medicine 11/04/17 Ky Carter MD [address] [place], [place] [address] Physician Neurology 07/19/18 Saida Perera DO [address] [place] [address] Primary Staff Physician Nephrology 04/24/21 Biochemistry Specialist Relationship Specialty Start Date End Date Rudy Branch DO [address] [place], [place] [address] PCP - General Family Medicine 11/04/17 Ky Carter MD [address] [place] [address] Physician Neurology 07/19/18 Saida Perera DO [address] [place] [address] Primary Staff Physician Nephrology 04/24/21 Team Status: Inactive Member Role Status Dates Dr. Rudy Branch , Primary Care Provider, Referrin g Provider Active Dr. Humberto Vo , DO Attending Provider Active Team Status: Inactive Member Role Status Dates Dr. Rudy Branch DO Primary Care Provider Active Dr. Humberto Vo , Attending Provider, Referring Provider Active Biochemistry Specialist Relationship Specialty Start Date End Date Rudy Branch DO [address] [place] [address] PCP - General Family Medicine 11/04/17 Ky Carter MD [address] [place] [address] Physician Neurology 07/19/18 Saida Perera DO [address] [place] [address] Primary Staff Physician Nephrology 04/24/21 Biochemistry Specialist Relationship Specialty Start Date End Date Rudy Branch DO [address] [place] [address] PCP - General Family Medicine 11/04/17 Ky Carter MD [address] [place] [address] Physician Neurology 07/19/18 Saida Perera DO [address] [place] [address] Primary Staff Physician Nephrology 04/24/21 Biochemistry Specialist Relationship Specialty Start Date End Date Rudy Branch DO [address] [place] [address] PCP - General Family Medicine 11/04/17 Ky Carter MD [address] [place] [address] Physician Neurology 07/19/18 Saida Perera DO [address] [place] [address] Primary Staff Physician Nephrology 04/24/21 Biochemistry Specialist Relationship Specialty Start Date End Date Rudy Branch DO [address] [place] [address] PCP - General Family Medicine 11/04/17 Ky Carter MD [address] [place] [address] Physician Neurology 07/19/18 Saida Perera DO [address] [place] [address] Primary Staff Physician Nephrology 04/24/21 Biochemistry Specialist Relationship Specialty Start Date End Date Rudy Branch DO [address] [place] [address] PCP - General Family Medicine 11/04/17 Ky Carter MD [address] [place] [address] Physician Neurology 07/19/18 Saida Perera DO [address] [place] [address] Primary Staff Physician Nephrology 04/24/21 Biochemistry Specialist Relationship Specialty Start Date End Date Rudy Branch DO [address] [place] [address] PCP - General Family Medicine 11/04/17 Ky Carter MD [address] [place] [address] Physician Neurology 07/19/18 Saida Perera DO [address] [place] [address] Primary Staff Physician Nephrology 04/24/21 Team Status: Inactive Member Role Status Dates Dr. Rudy Branch DO Primary Care Provider, Referrin g Provider Active Dr. Emmanuel Wong MD Active Travis Estes CORE MOUNTER, CORE MOUNTER-C Attending Provider Active Team Status: Inactive Member Role Status Dates Dr. Rudy Branch , Primary Care Provider, Referrin g Provider Active HARVINDER Charles Attending Provider Active Team Status: Inactive Member Role Status Dates Dr. Rudy Branch DO Primary Care Provider Active GERSON CAIN Attending Provider, Referring Provider Active Biochemistry Specialist Relationship Specialty Start Date End Date Rudy Branch DO [address] [place] [address] PCP - General Family Medicine 11/04/17 Ky Carter MD [address] [place] [address] Physician Neurology 07/19/18 Saida Perera DO [address] [place] [address] Primary Staff Physician Nephrology 04/24/21 Biochemistry Specialist Relationship Specialty Start Date End Date Rudy Branch DO [address] [place] [address] PCP - General Family Medicine 11/04/17 Ky Carter MD [address] [place] [address] Physician Neurology 07/19/18 Saida Perera DO [address] [place] [address] Primary Staff Physician Nephrology 04/24/21 Biochemistry Specialist Relationship Specialty Start Date End Date Rudy Branch DO [address] [place] [address] PCP - General Family Medicine 11/04/17 Ky Carter MD [address] [place] [address] Physician Neurology 07/19/18 Saida Perera, DO [address] [place] [address] Primary Staff Physician Nephrology 04/24/21 Biochemistry Specialist Relationship Specialty Start Date End Date Rudy Branch DO PCP - General 08/27/16 Rudy Branch DO [address] [place] [address] PCP - [facility] PCP 03/29/22 Biochemistry Specialist Relationship Specialty Start Date End Date Rudy Branch DO PCP - General 08/27/16 Rudy Branch DO [address] [place] [address] PCP - [facility] PCP 03/29/22 Biochemistry Specialist Relationship Specialty Start Date End Date Rudy Branch DO PCP - General 08/27/16 Rudy Branch DO [address] [place] [address] PCP - [facility] PCP 03/29/22 Biochemistry Specialist Relationship Specialty Start Date End Date Rudy Branch DO PCP - General 08/27/16 Rudy Branch DO [address] [place], [place] [address] [facility] 03/29/22 Team Status: Inactive Member Role Status Dates Dr. Rudy Branch DO Primary Care Provider, Referrin g Provider Active Adarsh BLANTON, PA Attending Provider Active Team Status: Active Member Role Status Dates Dr. Rudy Branch DO Primary Care Provider Active Dr. Stewart Ramirez MD Attending Provider Active HARVINDER Charles Referring Provider Active Team Status: Inactive Member Role Status Dates Dr. Rudy Branch DO Primary Care Provider, Other Pr ovider Active MURPHY ZHAO Attending Provider, Referring Provid er Active Team Status: Inactive Member Role Status Dates Dr. Rudy Branch DO Primary Care Provider Active HARVINDER Charles Attending Provider, Referring Provid er Active Team Status: Inactive Member Role Status Dates Dr. Rudy Branch DO Primary Care Provider Active Dr. Stewart Edmonds DO Attending Provider, Emergency P rovider Active Team Status: Inactive Member Role Status Dates Dr. Rudy Branch DO Primary Care Provider Active MURPHY POLK Attending Provider, Referring Prov ider Active Biochemistry Specialist Relationship Specialty Start Date End Date Rudy Branch DO PCP - General 08/27/16 Rudy Branch DO [address] [place] [phone] [facility] - [facility] 03/29/22 Biochemistry Specialist Relationship Specialty Start Date End Date Rudy Branch DO [address] [place], [place] [address] PCP - General Family Medicine 11/04/17 Ky Carter MD [address] [place] [address] Physician Neurology 07/19/18 Saida Perera DO [address] [place] [address] Primary Staff Physician Nephrology 04/24/21 Biochemistry Specialist Relationship Specialty Start Date End Date Rudy Branch DO [address] [place] [address] PCP - General Family Medicine 11/04/17 Ky Carter MD [address] [place] [address] Physician Neurology 07/19/18 Saida Perera DO [address] [place], [place] [address] Primary Staff Physician Nephrology 04/24/21 Team Status: Inactive Member Role Status Dates Dr. Rudy Branch , Primary Care Provider, Sandra frederick Provider Active Dr. Logan Junior , DO Attending Provider Active Biochemistry Specialist Relationship Specialty Start Date End Date Rudy Branch DO [address] [place] [address] PCP - General Family Medicine 11/04/17 Ky Carter MD [address] [place] [address] Physician Neurology 07/19/18 Saida Perera DO [address] [place] [address] Primary Staff Physician Nephrology 04/24/21 Biochemistry Specialist Relationship Specialty Start Date End Date Jose Carlos Rudy HerreraDO PCP - General 08/27/16 Rudy Branch DO [address] [place] [address] [facility] 03/[facility]/22 Team Status: Inactive Member Role Status Dates Dr. Rudy Branch DO Primary Care Provider Active Dr. Ceci Rivera MD Emergency Provider Active Biochemistry Specialist Relationship Specialty Start Date End Date Rudy Branch DO PCP - General 08/27/16 Rudy Branch DO [address] [address] P[facility] - [facility] PCP 03/29/22 Team Status: Inactive Member Role Status Dates Dr. Rudy Branch DO Primary Care Provider, Referrin g Provider Active Travis Estes CORE MOUNTER, CORE MOUNTER-C Attending Provider Active Team Status: Inactive Member Role Status Dates Dr. Rudy Branch DO Primary Care Provider Active Travis Estes CORE MOUNTER, CORE MOUNTER-C Attending Provider, Referring Pro vider Active Team Status: Inactive Member Role Status Dates Dr. Rudy Branch DO Primary Care Provider Active Dr. Ceci Rivera MD Attending Provider, Emergency Provider Active Biochemistry Specialist Relationship Specialty Start Date End Date Rudy Branch DO [address] [place], [place] [address] PCP - General Family Medicine 11/04/17 Ky Carter MD [address] [place] [address] Physician Neurology 07/19/18 Saida Perera DO [address] [place] [address] Primary Staff Physician Nephrology 04/24/21 Biochemistry Specialist Relationship Specialty Start Date End Date Rudy Branch DO [address] [place] [address] PCP - General Family Medicine 11/04/17 Ky Carter MD [address] [place] [address] Physician Neurology 07/19/18 Saida Perera DO [address] [place], [place] [address] Primary Staff Physician Nephrology 04/24/21 Team Status: Active Member Role Status Dates Dr. Rudy Barnch , Primary Care Provider, Referrere g Provider Active Dr. Logan Junior , DO Attending Provider, Other Prov ider Active Biochemistry Specialist Relationship Specialty Start Date End Date Rudy Branch DO [address] [place] [address] PCP - General Family Medicine 11/04/17 Ky Carter MD [address] [place] [address] Physician Neurology 07/19/18 Saida Perera DO [address] [place] [address] Primary Staff Physician Nephrology 04/24/21 Biochemistry Specialist Relationship Specialty Start Date End Date Rudy Branch DO [address] [place] [address] PCP - General Family Medicine 11/04/17 Ky Carter MD [address] [place] [address] Physician Neurology 07/19/18 Saida Perera DO [address] [place] [address] Primary Staff Physician Nephrology 04/24/21 Biochemistry Specialist Relationship Specialty Start Date End Date Rudy Branch DO [address] [place] [address] PCP - General Family Medicine 11/04/17 Ky Carter MD [address] [place] [address] Physician Neurology 07/19/18 Saida Perera DO [address] [place] [address] Primary Staff Physician Nephrology 04/24/21 Biochemistry Specialist Relationship Specialty Start Date End Date Rudy Branch DO PCP - General 08/27/16 Rudy Branch DO [address] [place] [address] [facility] 03/[facility]/22 Team Status: Active Member Role Status Dates Dr. Rudy Branch DO Primary Care Provider Active Dr. Pernell Johnson MD Attending Provider Active Biochemistry Specialist Relationship Specialty Start Date End Date Rudy Branch DO PCP - General 08/27/16 Rudy Barnch DO [address] [place] [address] PCP - [facility] PCP 03/29/22 Biochemistry Specialist Relationship Specialty Start Date End Date Rudy Branch DO [address] [place], [place] [id number] PCP - General Family Medicine 11/04/17 Ky Carter MD [address] [place], [place] [address] Physician Neurology 07/19/18 Saida Perera DO [address] [place] [address] Primary Staff Physician Nephrology 04/24/21 Biochemistry Specialist Relationship Specialty Start Date End Date Rudy Branch DO [address] [place], [place] [id number] PCP - General Family Medicine 11/04/17 Ky Carter MD [address] [place], [place] [phone] Physician Neurology 07/19/18 Saida Perera DO [address] [place], [place] [address] Primary Staff Physician Nephrology 04/24/21 Biochemistry Specialist Relationship Specialty Start Date End Date Rudy Branch DO [address] [place] [address] PCP - General Family Medicine 07/12/18 Team Status: Active Member Role Status Dates Dr. Rudy Branch DO Primary Care Provider Active Dr. Stewart Ramirez MD Attending Provider Active Team Status: Inactive Member Role Status Dates Dr. Rudy Branch DO Primary Care Provider Active Dr. Stewart Edmonds DO Emergency Provider Active Biochemistry Specialist Relationship Specialty Start Date End Date Rudy Branch DO PCP - General 08/27/16 Rudy Branch DO [address] [place] [address] PCP - [facility] PCP 03/29/22 Melissa Fernán[place] [address] [place] [address] Pot Rel[facility] Obstetrics and Gynecology 10/05/23 Biochemistry Specialist Relationship Specialty Start Date End Date Rudy Branch [address] [place] [address] PCP - General 01/24/19 Wilmar Davis MD [address] [facility], [address] [place], [place] [id number] Consulting Physician Gynecologic Oncology 05/04/22 Biochemistry Specialist Relationship Specialty Start Date End Date Rudy Branch [address] [place] [phone] PCP - General 01/24/19 Wilmar Davis MD [address] [facility], [address] [place], [place] [phone] Consulting Physician Gynecologic Oncology 05/04/22 Biochemistry Specialist Relationship Specialty Start Date End Date Rudy Branch DO [address] [place] [address] [facility] - [facility] P[facility] 03/29/22 Rudy Branch DO [address] [place] [address] PCP - General Family Medicine 11/04/23 Melissa Fernán[place] [address] [place] [address] Pot Rel[facility] Obstetrics and Gynecology 10/05/23 Team Status: Active Member Role Status Dates Dr. Rudy Branch DO Primary Care Provider Active Team Status: Inactive Member Role Status Dates Dr. Rudy Branch DO Primary Care Provider Active Start: March 03, 2024 End: March 03, 2024 Dr. Rudy Branch DO Attending Provider Active Start: March 03, 2024 End: March 03, 2024 Dr. Rudy Branch DO Referring Provider Active Start: March 03, 2024 End: March 03, 2024 Team Status: Inactive Member Role Status Dates Dr. Rudy Branch DO Primary Care Provider Active Start: April 04, 2024 End: April 04, 2024 Dr. Rudy Branch DO Referring Provider Active Start: April 04, 2024 End: April 04, 2024 Dr. Pernell Johnson MD Attending Provider Active S tart: April 04, 2024 End: April 04, 2024 Team Status: Inactive Member Role Status Dates Dr. Rudy Branch DO Primary Care Provider Active Start: April 05, 2024 End: April 05, 2024 Dr. Rudy Branch DO Referring Provider Active Start: April 05, 2024 End: April 05, 2024 BENITA AguiarC Attending Provider Active Start: April 05, 2024 End: April 05, 2024 Team Status: Inactive Member Role Status Dates Dr. Rudy Branch DO Primary Care Provider Active Start: April 18, 2024 End: April 18, 2024 Dr. Pernell Johnson MD Attending Provider Active S tart: April 18, 2024 End: April 18, 2024 Dr. Pernell Johnson MD Referring Provider Active S tart: April 18, 2024 End: April 18, 2024 AFTAB Aguiar Other Provider Active St art: April 18, 2024 End: April 18, 2024 Team Status: Inactive Member Role Status Dates Dr. Rudy Branch DO Primary Care Provider Active Start: April 19, 2024 End: April 19, 2024 Dr. Rudy Branch DO Referring Provider Active Start: April 19, 2024 End: April 19, 2024 HARVINDER Charles Attending Provider Active Star t: April 19, 2024 End: April 19, 2024 Team Status: Inactive Member Role Status Dates Dr. Rudy Branch DO Primary Care Provider Active Start: April 27, 2024 End: April 27, 2024 Dr. Rudy Branch DO Referring Provider Active Start: April 27, 2024 End: April 27, 2024 HARVINDER Izquierdo Attending Provider Active Star t: April 27, 2024 End: April 27, 2024 Team Status: Inactive Member Role Status Dates Dr. Rudy Branch DO Primary Care Provider Active Start: April 27, 2024 End: April 27, 2024 Dr. Pernell Johnson MD Attending Provider Active S tart: April 27, 2024 End: April 27, 2024 Team Status: Inactive Member Role Status Dates Dr. Rudy Branch DO Primary Care Provider Active Start: April 27, 2024 End: April 27, 2024 Dr. Rudy Branch DO Attending Provider Active Start: April 27, 2024 End: April 27, 2024 Dr. Rudy Branch DO Referring Provider Active Start: April 27, 2024 End: April 27, 2024 Team Status: Inactive Member Role Status Dates Dr. Rudy Branch DO Primary Care Provider Active Start: May 29, 2024 End: May 29, 2024 Dr. Rudy Branch DO Referring Provider Active Start: May 29, 2024 End: May 29, 2024 Ceci Martinez CORE MOUNTER-C Attending Provider Active Start: May 29, 2024 End: May 29, 2024 Team Status: Active Member Role Status Dates Dr. Rudy Branch DO Primary Care Provider Active Start: May 29, 2024 Ceciania Martinez CORE MOUNTER-C Attending Provider Active Start: May 29, 2024 Ceci Martinez , CORE MOUNTER-C Referring Provider Active Start: May 29, 2024 Team Status: Inactive Member Role Status Dates Dr. Rudy Branch DO Primary Care Provider Active Start: May 30, 2024 End: May 30, 2024 Dr. Stewart Edmonds DO Emergency Provider Active Start: May 30, 2024 End: May 30, 2024 Team Status: Active Member Role Status Dates Dr. Rudy Branch DO Primary Care Provider Active Start: June 05, 2024 Ceci Martinez , CORE MOUNTER-C Attending Provider Active Start: June 05, 2024 Ceci Martinez CORE MOUNTER-C Referring Provider Active Start: June 05, 2024 Team Status: Inactive Member Role Status Dates Dr. Rudy Branch DO Primary Care Provider Active Start: June 08, 2024 End: June 08, 2024 Dr. Rudy Branch DO Attending Provider Active Start: June 08, 2024 End: June 08, 2024 Dr. Rudy Branch DO Referring Provider Active Start: June 08, 2024 End: June 08, 2024 Dr. Andrei Holt MD Other Provider Active Start: June 08, 2024 End: June 08, 2024 AFTAB Aguiar Other Provider Active St art: June 08, 2024 End: June 08, 2024 Team Status: Inactive Member Role Status Dates Dr. Rudy Branch DO Primary Care Provider Active Start: May 29, 2024 End: May 29, 2024 Ceci Martinez CORE MOUNTER-C Attending Provider Active Start: May 29, 2024 End: May 29, 2024 Ceci Martinez NP-C Referring Provider Active Start: May 29, 2024 End: May 29, 2024 Team Status: Inactive Member Role Status Dates Dr. Rudy Branch DO Primary Care Provider Active Start: May 30, 2024 End: May 30, 2024 Dr. Stewart Edmonds DO Attending Provider Active Start: May 30, 2024 End: May 30, 2024 Dr. Stewart Edmonds DO Emergency Provider Active Start: May 30, 2024 End: May 30, 2024 Team Status: Inactive Member Role Status Dates Dr. Rudy Branch DO Primary Care Provider Active Start: June 05, 2024 End: June 05, 2024 BENITA AguiarC Attending Provider Active Start: June 05, 2024 End: June 05, 2024 Ceci Martinez NP-C Referring Provider Active Start: June 05, 2024 End: June 05, 2024 Biochemistry Specialist Relationship Specialty Start Date End Date Rudy Branch DO [address] [place] [phone] PCP - General Family Medicine 07/12/18 Team Status: Inactive Member Role Status Dates Dr. Rudy Branch DO Primary Care Provider Active Start: June 27, 2024 End: June 27, 2024 YONATHAN ROMERO Attending Provider Active Start: June 27, 2024 End: June 27, 2024 YONATHAN ROMERO Referring Provider Active Start: June 27, 2024 End: June 27, 2024 Team Status: Inactive Member Role Status Dates Dr. Rudy Branch DO Primary Care Provider Active Start: July 16, 2024 End: July 16, 2024 Dr. Stewart Edmonds DO Emergency Provider Active Start: July 16, 2024 End: July 16, 2024 Team Status: Inactive Member Role Status Dates Dr. Rudy Branch DO Primary Care Provider Active Start: July 19, 2024 End: July 19, 2024 Dr. Serge Santos , Emergency Provider Active Start: July 19, 2024 End: July 19, 2024 Team Status: Inactive Member Role Status Dates Dr. Rudy Branch DO Primary Care Provider Active Start: July 16, 2024 End: July 16, 2024 Dr. Stewart Edmonds , Attending Provider Active Start: July 16, 2024 End: July 16, 2024 Dr. Stewart Edmonds , Emergency Provider Active Start: July 16, 2024 End: July 16, 2024 Team Status: Inactive Member Role Status Dates Dr. Rudy Branch DO Primary Care Provider Active Start: July 19, 2024 End: July 19, 2024 Dr. Serge Santos DO Attending Provider Active Start: July 19, 2024 End: July 19, 2024 Dr. Serge Santos , Emergency Provider Active Start: July 19, 2024 End: July 19, 2024 Team Status: Inactive Member Role Status Dates Dr. Rudy Branch DO Primary Care Provider Active Start: August 09, 2024 End: August 09, 2024 Dr. Rudy Branch DO Referring Provider Active Start: August 09, 2024 End: August 09, 2024 Dr. Logan Junior DO Attending Provider Active Start: August 09, 2024 End: August 09, 2024 Team Status: Inactive Member Role Status Dates Dr. Rudy Branch DO Primary Care Provider Active Start: September 08, 2024 End: September 08, 2024 Dr. Rudy Branch DO Referring Provider Active Start: September 08, 2024 End: September 08, 2024 HARVINDER Izquierdo Attending Provider Active Star t: September 08, 2024 End: September 08, 2024 Team Status: Inactive Member Role Status Dates Dr. Rudy Branch DO Primary Care Provider Active Start: September 08, 2024 End: September 08, 2024 Dr. Rudy Branch DO Attending Provider Active Start: September 08, 2024 End: September 08, 2024 Dr. Rudy Branch DO Referring Provider Active Start: September 08, 2024 End: September 08, 2024 Dr. Ford Friend , DO Other Provider Active St art: September 08, 2024 End: September 08, 2024 Biochemistry Specialist Relationship Specialty Start Date End Date Rudy Branch DO [address] [place], [place] [id number] PCP - General Family Medicine 11/04/17 Ky Carter MD [address] [place] [address] Physician Neurology 07/19/18 Saida Perera DO [address] [place] [address] Primary Staff Physician Nephrology 04/24/21 Biochemistry Specialist Relationship Specialty Start Date End Date Rudy Branch DO [address] [place], [place] [id number] PCP - General Family Medicine 11/04/17 Ky Carter MD [address] [place], [place] [id number] Physician Neurology 07/19/18 Saida Perera DO [address] [place] [address] Primary Staff Physician Nephrology 04/24/21 Biochemistry Specialist Relationship Specialty Start Date End Date Rudy Branch DO [address] [place], [place] [address] PCP - General Family Medicine 11/04/17 Ky Carter MD [address] [place] [address] Physician Neurology 07/19/18 Saida Perera DO [address] [place] [address] Primary Staff Physician Nephrology 04/24/21 Team Status: Active Member Role/Relationship Status Dates Dr. Rudy Branch DO Primary Care Provider Active Team Status: Inactive Member Role/Relationship Status Dates Dr. Rudy Branch DO Primary Care Provider Active Start: June 27, 2024 End: June 27, 2024 YONATHAN ROMERO Attending Provider Active Start: June 27, 2024 End: June 27, 2024 YONATHAN ROMERO Referring Provider Active Start: June 27, 2024 End: June 27, 2024 Team Status: Inactive Member Role/Relationship Status Dates Dr. Rudy Branch DO Primary Care Provider Active Start: July 16, 2024 End: July 16, 2024 Dr. Stewart Edmonds DO Attending Provider Active Start: July 16, 2024 End: July 16, 2024 Dr. Stewart Edmonds , Emergency Provider Active Start: July 16, 2024 End: July 16, 2024 Team Status: Inactive Member Role/Relationship Status Dates Dr. Rudy Branch DO Primary Care Provider Active Start: July 19, 2024 End: July 19, 2024 Dr. Serge Santos , Attending Provider Active Start: July 19, 2024 End: July 19, 2024 Dr. Serge Santos , Emergency Provider Active Start: July 19, 2024 End: July 19, 2024 Team Status: Inactive Member Role/Relationship Status Dates Dr. Rudy Branch DO Primary Care Provider Active Start: August 09, 2024 End: August 09, 2024 Dr. Rudy Branch DO Referring Provider Active Start: August 09, 2024 End: August 09, 2024 Dr. Logan Junior , DO Attending Provider Active Start: August 09, 2024 End: August 09, 2024 Team Status: Inactive Member Role/Relationship Status Dates Dr. Rudy Branch DO Primary Care Provider Active Start: September 08, 2024 End: September 08, 2024 Dr. Rudy Branch DO Referring Provider Active Start: September 08, 2024 End: September 08, 2024 HARVINDER Izquierdo Attending Provider Active Star t: September 08, 2024 End: September 08, 2024 Team Status: Inactive Member Role/Relationship Status Dr. Rudy Branch DO Primary Care Provider Active Start: September 08, 2024 End: September 08, 2024 Dr. Rudy Branch DO Attending Provider Active Start: September 08, 2024 End: September 08, 2024 Dr. Rudy Branch DO Referring Provider Active Start: September 08, 2024 End: September 08, 2024 Dr. Logan Junior DO Other Provider Active St art: September 08, 2024 End: September 08, 2024 Team Status: Inactive Member Role/Relationship Status Dr. Rudy Branch DO Primary Care Provider Active Start: October 10, 2024 End: October 10, 2024 Dr. Rudy Branch DO Referring Provider Active Start: October 10, 2024 End: October 10, 2024 HARVINDER Castaneda Attending Provider Active Start: October 10, 2024 End: October 10, 2024 FOR RECORDS PERTAINING TO PATIENTS WHO ARE [...] BE BASED ON THE PRIMARY CLINICAL RECORDS. [facility] [employer] provides no warranty or guarantee of the accuracy or completeness of information in this document.
[2024-10-22] MEDS: 0.9% Normal Saline (1000mL) 1,000 ML 999 ML IV (20:56)
[2024-10-22 21:03] LABS: Mucous, Urine 0 SEEN /hpf (<or=2+); Red Blood Cells-Urine 0 SEEN /hpf (0-5)
[2024-10-22 21:05] LABS: Color, Urine Yellow (Yellow); Glucose, Dipstick Normal (Normal); Ketone-Dipstick Negative (Negative); Leukocyte Esterase-Dipstick Negative /ul (Negative); Nitrite-Dipstick Negative (Negative); Occult Blood-Urine 10 /ul (Negative); Protein-Dipstick 15 mg/dl (Negative); Specific Gravity, Urine 1.020 (1.002-1.030); Urine Bilirubin Dipstick Negative (Negative)
[2024-10-22 21:07] LABS: Hematocrit 38.2 % (37-47); Hemoglobin 12.6 g/dL (12.0-15.0); Immature Granulocytes Count 0.020 X10^3/uL (0.0-0.0); Mean Corp Hgb Conc 33.0 g/dL (32-36); Mean Corpuscular Volume 86.4 fL (81-99); Mean Platelet Vol. 9.1 fl (6.2-12.0); NRBC Flagged by Analyzer 0 % (0-5); Platelet Count 291 K/mm3 (150-450); RBC Distribution Width CV 12.9 % (11.6-14.6); RBC Distribution Width SD 40.4 fl (35.1-43.9); Red Blood Count 4.42 M/mm3 (4.2-5.4); White Blood Count 10.3 K/mm3 (4.4-11.0)
[2024-10-22 21:12] LABS: Squamous Epithelial Cells - UA 0-5 SEEN /hpf (5-10)
[2024-10-22 21:23] VITALS: BP 122/78; PULSE 68; RESP 18; TEMP 36.7; O2SAT 98
[2024-10-22 21:33] LABS: AST(SGOT) 35 U/L (<=31); Alanine Aminotransfer ALT/SGPT 32 U/L (<=34); Albumin, Serum 4.3 g/dL (3.5-5.0); Alkaline Phosphatase 72 U/L (35-104); Anion Gap 13 (5-15); BUN 11 mg/dL (4-19); BUN/Creat Ratio 14.4 RATIO (10-20); Calcium,Total 9.0 mg/dL (7.6-11.0); Carbon Dioxide 25.1 mmol/L (21.0-32.0); Chloride 103 mmol/L (98-108); Estimated Creatinine Clearance 98.91 ml/min (50-250); Globulin 3.0 g/dL (2.2-4.2); Glucose 138 mg/dL (70-99); Lipase 61 U/L (13-75); Potassium 3.3 mmol/L (3.3-5.1)
[2024-10-22 22:00] VITALS: BP 121/68; PULSE 100; RESP 18; TEMP 36.9; O2SAT 100
[2024-10-22 22:21] VITALS: BP 120/77; PULSE 75; RESP 16; TEMP 37; O2SAT 98
[2024-10-22 23:16] VITALS: BP 121/77; PULSE 72; RESP 12; TEMP 37.1; O2SAT 98
== END 2024-10-22 23:21 | disposition home or self-care (01) ==
PROVIDERS: Emergency Provider Emergency Medicine; PCP Family Medicine; Visit Provider Emergency Medicine
DX: R10.9 Unspecified abdominal pain (principal); K50.90 Crohn's disease, unspecified, without complications; R11.2 Nausea with vomiting, unspecified; R73.9 Hyperglycemia, unspecified; Z86.718 Personal history of other venous thrombosis and embolism; R19.7 Diarrhea, unspecified; I10 Essential (primary) hypertension; Z79.899 Other long term (current) drug therapy; Z90.49 Acquired absence of other specified parts of digestive tract
CPT/HCPCS: 74177; 80053; 81001; 83690; 85025; 96361; 96374; 96375; 99283; Q9967; A4216; J2405

== ENCOUNTER → 2024-10-25 | Outpatient (CLI) | payer OTHER, SELFPAY ==
[2024-10-25 12:38] LABS: Hematocrit 38.8 % (37-47); Hemoglobin 12.6 g/dL (12.0-15.0); Immature Granulocytes Count 0.020 X10^3/uL (0.0-0.0); Mean Corp Hgb Conc 32.5 g/dL (32-36); Mean Corpuscular Volume 87.2 fL (81-99); Mean Platelet Vol. 9.8 fl (6.2-12.0); NRBC Flagged by Analyzer 0 % (0-5); Platelet Count 292 K/mm3 (150-450); RBC Distribution Width CV 12.9 % (11.6-14.6); RBC Distribution Width SD 41.0 fl (35.1-43.9); Red Blood Count 4.45 M/mm3 (4.2-5.4); White Blood Count 6.6 K/mm3 (4.4-11.0)
[2024-10-25 13:22] LABS: AST(SGOT) 29 U/L (<=31); Alanine Aminotransfer ALT/SGPT 34 U/L (<=34); Albumin, Serum 4.1 g/dL (3.5-5.0); Alkaline Phosphatase 71 U/L (35-104); Anion Gap 13 (5-15); BUN 8 mg/dL (4-19); BUN/Creat Ratio 12.1 RATIO (10-20); CRP 6.46 mg/L (0.0-3.0); Calcium,Total 9.3 mg/dL (7.6-11.0); Carbon Dioxide 22.0 mmol/L (21.0-32.0); Chloride 103 mmol/L (98-108); Cholesterol 218 mg/dL (<=200); Globulin 3.1 g/dL (2.2-4.2); Glucose 102 mg/dL (70-99); Low Density Lipoprotein Calc. 123 mg/dL; Potassium 3.8 mmol/L (3.3-5.1); Triglycerides 241 mg/dL; Very Low Density Lipoprotein 48 mg/dL (5-40); cholesterol:hdl ratio screen 4.65
== END | disposition home or self-care (01) ==
LOC: BFHLAB 09:42
PROVIDERS: PCP Family Medicine; Visit Provider Family Medicine
DX: R19.7 Diarrhea, unspecified (principal); R10.9 Unspecified abdominal pain; R76.8 Other specified abnormal immunological findings in serum; R73.01 Impaired fasting glucose; E78.1 Pure hyperglyceridemia
CPT/HCPCS: 36415; 80053; 80061; 83036; 83520; 85025; 85652; 86140

== ENCOUNTER → 2024-10-26 | Outpatient (CLI) | payer OTHER, SELFPAY ==
[2024-10-31 08:08] LABS: Calprotectin, Stool 17 ug/g (0-120)
== END | disposition home or self-care (01) ==
PROVIDERS: PCP Family Medicine; Referring Provider Student in an Organized Health Care Education/Training Program; Visit Provider Nurse Practitioner Family
DX: R10.9 Unspecified abdominal pain (principal); K50.90 Crohn's disease, unspecified, without complications; K58.0 Irritable bowel syndrome with diarrhea; R11.2 Nausea with vomiting, unspecified; R42 Dizziness and giddiness; R79.82 Elevated C-reactive protein (CRP)
CPT/HCPCS: 83630; 83993; 87177; 87209; 87329; 87493; 87506

== ENCOUNTER 2024-11-24 10:32 | Emergency (ER) | payer OTHER, SELFPAY ==
[2024-11-24 10:33] VITALS: BP 136/84; PULSE 79; RESP 14; TEMP 36.7; O2SAT 98; BMI 34.4
--- NOTE | 2024-11-24 10:44 | EX.ED.VIS.UR ---
HPI HPI - URI History of Present Illness Chief Complaint: Sore Throat Informant: patient Onset/Context/Timing Onset: Weeks (1) Context: Gradual Onset Timing: Waxes and wanes Quality: Sharp, pressure Location: Right worse than left Worsened by: Swallowing, Eating Solids and Drinking Liquids Relieved by: Tylenol Associated Symptoms Associated Symptoms: Positive for Headache, Myalgias and Diarrhea; Negative for Nasal Congestion, Sinus Pressure, Nausea, Vomiting, Shortness of Breath, Chest Pain, Nonproductive cough, Hemoptysis or Productive Cough Narrative Narrative: Patient presents with sore throat that has been constant for the past week. Patient states she went to urgent care and had a rapid strep done which was negative. Patient states they also did a monotest which was basically negative. Patient admits to increasing fatigue. Patient admits to some subjective chills but denies any fevers. Patient denies any cough. Patient states her pain is worse with swallowing, eating, or drinking. Patient states her pain is worse on the right than the left. Patient states she noted some swollen lymph nodes in her neck which were worse on the left. Patient denies any nausea or vomiting. Patient admits to a mild headache. ROS ROS ED Constitutional Constitutional ED: Reports chills and subjective; Denies fever(s) Eyes Eyes: Reports blurry vision; Denies diplopia ENT ENT ED: Reports sore throat; Denies rhinorrhea Cardiovascular Cardiovascular: Denies chest pain or palpitations Respiratory/Chest Respiratory/Chest: Denies cough or dyspnea Gastrointestinal Gastrointestinal: Reports diarrhea; Denies nausea or vomiting Genitourinary Genitourinary ED: Denies dysuria or hematuria Musculoskeletal Musculoskeletal: Reports back pain, myalgias and neck pain Integumentary Reports rash; Denies abscess Neurologic Neurologic: Denies headache(s) or weakness Allergic/Immunologic Allergic/Immunologic ED: Denies mouth swelling or urticaria [facility] Medical History Kidney stones Lupus Rheumatoid arthritis Interstitial cystitis History of DVT (deep vein thrombosis) Injury of head and neck History of diverticulitis History of Crohn's disease Shortness of breath on exertion History of edema History of stress test History of echocardiogram Cardiology follow-up encounter History of atrial fibrillation Ovarian cancer Left leg paresthesias Lumbar strain Kidney stones Medullary sponge kidney of both kidneys Kidney disease Acute maxillary sinusitis, unspecified Abdominal pain Diarrhea History of Lyme disease Reflux involving intestinal tract POTS (postural orthostatic tachycardia syndrome) Wears glasses Anemia History of steroid therapy History of fatty infiltration of liver Non-smoker Leg cramps Edema Irregular heart beat Migraine headache Restless legs Back pain Syncope Ectopic cardiac beats Sinus tachycardia Symptomatic bradycardia lysis of adensions (~09/2019) Hepatic steatosis Acid reflux Asthma Sleep apnea Anxiety Hypertension Arthritis History of back problems h/o lesion removal Fatigue Endometriosis Ovarian cyst Hematochezia PCOS (polycystic ovarian syndrome) Ankylosing spondylitis Exercise-induced asthma Mitral regurgitation Tachycardia Prolapse of intestine Diverticulosis Hemorrhoids Anal fissure Home Medications ?Medication ?Instructions ?Recorded ?Last Taken ?Type multivitamin 1 tab PO DAILY 12/13/17 09/17/18 History albuterol sulfate 90 mcg/actuation 1 - 2 puff inhalation Q6H PRN PRN 10/19/19 Unknown History aerosol inhaler Asthma ondansetron 4 mg disintegrating 4 mg PO Q8H PRN nausea and 10/22/23 Unknown Rx tablet vomiting #90 tabs atenolol 25 mg tablet 25 mg PO DAILY #90 tabs 04/04/24 Unknown Rx Hydrocortisone 2.5% / Lidocaine 5% #30 grams 07/03/24 Unknown Rx ointment (cmpd) ipratropium 0.5 mg-albuterol 3 mg 3 ml inhalation Q6H PRN shortness 07/19/24 Unknown Rx (2.5 mg base)/3 mL nebulization of breath or wheezing #180 mL soln potassium citrate 10 mEq (1,080 10 meq PO BID 07/19/24 Unknown History mg) tablet,extended release pantoprazole 40 mg tablet,delayed 40 mg PO BID #60 tabs 10/24/24 Unknown Rx release sucralfate 1 gram tablet 1 g PO TID #90 tabs 10/24/24 Unknown Rx dexamethasone 6 mg tablet 6 mg PO ONCE 10/26/24 Unknown History sucralfate 100 mg/mL oral 10 ml PO BID #1,000 mL 10/26/24 Unknown Rx suspension amoxicillin 250 mg-potassium 10 ml PO TID #300 mL 11/24/24 Unknown Rx clavulanate 62.5 mg/5 mL oral suspension (Augmentin) dexamethasone 4 mg tablet 4 mg PO DAILY #7 tabs 11/24/24 Unknown Rx Allergy/AdvReac Type Severity Reaction Status Date / Time cephalexin monohydrate (From Allergy Severe Anaphylaxis Verified 11/24/24 10:33 Keflex) cyclobenzaprine (From Allergy Severe Mental Verified 11/24/24 10:33 Flexeril) status change latex Allergy Mild Swelling Verified 11/24/24 10:33 eucalyptus AdvReac Severe tachycardia, Verified 11/24/24 10:33 close airway NSAIDS (Non-Steroidal AdvReac Severe GI upset Verified 11/24/24 10:33 Anti-Inflamma tamsulosin (From Flomax) AdvReac Severe Low BP/HR Verified 11/24/24 10:33 tizanidine AdvReac Severe Low HR Verified 11/24/24 10:33 ciprofloxacin (From Cipro) AdvReac diarrhea, Verified 11/24/24 10:33 nausea, tachycardia Family History Mother Heart disease Hypertension Father Heart disease Diabetes Hypertension Surgical History History of surgery History of hysterectomy History of cholecystectomy H/O cystoscopy (~09/2019) H/O dilation and curettage (~09/2019) Hx laparoscopic cholecystectomy (~09/2019) Hx of removal of ovary History of hernia repair History of Social History Smoking Status: Never smoker Electronic Cigarette Use: not used second hand exposure: No alcohol intake: never substance use type: does not use caffeine: No what type of physical activity do you participate in: walking frequency: 5-6 times per week seatbelt use: always do you feel safe at home: Yes additional social history: Single- Currently unemployed EXAM Physical Exam Const Vital Signs: 11/24/24 10:33 Temperature 98.1 F Temperature Source Temporal Pulse Rate 79 Respiratory Rate 14 Blood Pressure 136/84 H Blood Pressure Mean 101 Pulse Ox 98 Oxygen Delivery Method Room Air Positive well nourished and well developed Constitutional Narrative: BMI is 34.4. General Appearance ED: well developed and NAD HEENT Reports moist mucous membranes normocephalic and atraumatic Throat: posterior oropharynx abnormal Positive for edema (Mild edema, right worse than left), erythema and exudates Neck supple, no meningeal signs and no JVD General: lymphadenopathy anterior cervical tender (Left worse than right) Resp normal respiratory effort and clear to auscultation bilaterally Cardio Rate: regular rate Rhythm: regular rhythm Neuro oriented x3, CN's II-XII intact bilaterally and no sensory deficits noted Sensorium / Orientation: alert Motor Exam: strength 5/5 throughout Psych mental status grossly normal MDM MDM MDM Narrative Medical decision making narrative: Differential diagnosis includes peritonsillar abscess, strep pharyngitis, viral pharyngitis, and dehydration. CBC will be obtained to assess for leukocytosis and anemia. Basic metabolic profile will be obtained to assess for electrolyte abnormality and renal function. Rapid strep will be obtained to assess for strep pharyngitis. COVID-19, influenza, and RSV PCR will be obtained to assess for viral illness. CT scan of the soft tissue neck will be obtained to assess for peritonsillar abscess. History & Record Review Additional record(s) reviewed:: Prior outpatient record, Prior ED visit and Prior labs Lab Data Attestation: I reviewed the patient's lab results. Lab results narrative: CBC was reviewed and was within normal limits. Basic metabolic profile was reviewed and was within normal limits. Labs: Laboratory Results - last 24 hr 11/24/24 11:15 WBC 7.1 RBC 4.58 Hgb 13.1 Hct 39.3 MCV 85.8 MCH 28.6 MCHC 33.3 RDW Std Deviation 39.5 RDW Coeff of Karon 12.7 Plt Count 272 MPV 9.0 Immature Gran % (Auto) 0.300 Neut % (Auto) 49.5 Lymph % (Auto) 39.8 Pine % (Auto) 6.8 Eos % (Auto) 3.0 Baso % (Auto) 0.6 Absolute Neuts (auto) 3.5 Absolute Lymphs (auto) 2.82 Nucleated RBC % 0 Sodium 140 Potassium 3.8 Chloride 103 Carbon Dioxide 25.0 Anion Gap 12 BUN 7 Creatinine 0.68 L Estim Creat Clear Calc 114.61 Est GFR (MDRD) Non-Af 112 BUN/Creatinine Ratio 10.5 Glucose 91 Calcium 9.1 Radiography Diagnostic Testing: Clinical Impression(s) from Imaging Studies Soft Tissue Neck CT 11/24/24 12:01 IMPRESSION: Prominence of the right palatine tonsils. No evidence of abscess at this time. Reading Location: [facility] CT scan of the soft tissue neck was obtained. There is prominence of the right palatine tonsil. There is no evidence of any abscess. This was interpreted by the radiologist and was also independently reviewed by myself. Treatment and Re-Evaluation Narrative: Patient was given IV fluids. Patient was given a dose of Rocephin here. Patient was given a dose of Decadron here. Patient was feeling better on reevaluation. Patient was advised of her findings. Patient was given a prescription for Augmentin and a prescription for Decadron. Patient was instructed to follow-up with her primary care physician in 5 to 7 days. Patient was instructed to return if worse in any way. Patient understood and was agreeable with the plan. All questions were answered. Discharge Plan Triage Chief Complaint: Sore Throat ED Provider: Stewart Edmonds Dx/Rx/DC Orders Clinical Impression: Acute tonsillitis, Fatigue Instructions: ED Pharyngitis, Report Pending Prescriptions: New amoxicillin-pot clavulanate [Augmentin] 250-62.5 mg/5 mL suspension for reconstitution 10 ml PO TID Qty: 300 0RF dexamethasone 4 mg tablet 4 mg PO DAILY Qty: 7 0RF No Action multivitamin tablet 1 tab PO DAILY atenolol 25 mg tablet 25 mg PO DAILY Qty: 90 3RF Rx Instructions: Takes BID if BP or HR are elevated dexamethasone 6 mg tablet 6 mg PO ONCE sucralfate 100 mg/mL suspension 10 ml PO BID Qty: 1000 0RF albuterol sulfate 1 INHALER inhaler 1 - 2 puff INHALATION Q6H PRN PRN (Reason: Asthma) potassium citrate 10 mEq (1,080 mg) tablet extended release 10 meq PO BID ipratropium-albuterol 0.5 mg-3 mg(2.5 mg base)/3 mL solution for nebulization 3 ml inhalation Q6H PRN (Reason: shortness of breath or wheezing) Qty: 180 0RF ondansetron 4 mg tablet,disintegrating 4 mg PO Q8H PRN (Reason: nausea and vomiting) Qty: 90 1RF (DME) Hydrocortisone 2.5% / Lidocaine 5% ointment (cmpd) Ointment See Rx Instructions .Route Qty: 30 0RF Rx Instructions: instill a pea sized amount into the rectum BID PRN for rectal pain sucralfate 1 gram tablet 1 g PO TID Qty: 90 0RF pantoprazole 40 mg tablet,delayed release (DR/EC) 40 mg PO BID Qty: 60 2RF Primary Care Provider: Anant Curran Referrals: Anant Curran DO [Primary Care Provider] - 5-7 Days Print Language: Estonian Disposition Disposition: Home, Self Care
[2024-11-24] MEDS: 0.9% Normal Saline (1000mL) 1,000 ML 1000 ML IV (11:21)
[2024-11-24 11:22] LABS: Hematocrit 39.3 % (37-47); Hemoglobin 13.1 g/dL (12.0-15.0); Immature Granulocytes Count 0.020 X10^3/uL (0.0-0.0); Mean Corp Hgb Conc 33.3 g/dL (32-36); Mean Corpuscular Volume 85.8 fL (81-99); Mean Platelet Vol. 9.0 fl (6.2-12.0); NRBC Flagged by Analyzer 0 % (0-5); Platelet Count 272 K/mm3 (150-450); RBC Distribution Width CV 12.7 % (11.6-14.6); RBC Distribution Width SD 39.5 fl (35.1-43.9); Red Blood Count 4.58 M/mm3 (4.2-5.4); White Blood Count 7.1 K/mm3 (4.4-11.0)
--- NOTE | 2024-11-24 12:01 | CT_ITS ---
PROCEDURE: SOFT TISSUE NECK WITH CONTRAST 11/24/2024 REASON FOR EXAM: DYSPHAGIA One-week history of a sore throat. TECHNIQUE: Procedure Code: CTNEW Modality: CT Procedure: SOFT TISSUE NECK WITH CONTRAST One or more dose reduction techniques were used (e.g., Automated exposure control, adjustment of the mA and/or kV according to patient size, use of iterative reconstruction technique). CONTRAST: Isovue 370 VOLUME: 75 mL RADIATION DOSE SUMMARY: CTDlvol: 17.69 mGy DLP: 578.88 mGycm COMPARISON: None FINDINGS: Airway: Midline and patent. Salivary glands: Unremarkable. Lymph nodes: No cervical lymphadenopathy. Findings suggestive of prominence of the right palatine tonsils. This may represent tonsillitis. No abscess is seen. Thyroid: 6.8 mm hypodensity in the midpole of the right lobe of the thyroid suggestive of possible colloid cyst. Vasculature: Carotid arteries and internal jugular veins are unremarkable. Orbits: Unremarkable at visualized levels. Paranasal sinuses and mastoids: Grossly clear at visualized levels. Lung apices: Clear. Upper mediastinum: Visualized mediastinum is unremarkable. Bones: Unremarkable. Other: CT/Soft Tissue Neck WITH Contrast IMPRESSION: Prominence of the right palatine tonsils. No evidence of abscess at this time. Reading Location: [id number]
[2024-11-24 12:05] LABS: Anion Gap 12 (5-15); BUN 7 mg/dL (4-19); BUN/Creat Ratio 10.5 RATIO (10-20); Calcium,Total 9.1 mg/dL (7.6-11.0); Carbon Dioxide 25.0 mmol/L (21.0-32.0); Chloride 103 mmol/L (98-108); Estimated Creatinine Clearance 114.61 ml/min (50-250); Glucose 91 mg/dL (70-99); Potassium 3.8 mmol/L (3.3-5.1)
[2024-11-24 13:03] VITALS: BP 134/78; PULSE 78; RESP 16; TEMP 37.1; O2SAT 99
== END 2024-11-24 13:04 | disposition home or self-care (01) ==
PROVIDERS: Emergency Provider Emergency Medicine; PCP Family Medicine; Visit Provider Emergency Medicine
DX: J03.90 Acute tonsillitis, unspecified (principal); Z86.718 Personal history of other venous thrombosis and embolism
CPT/HCPCS: 70491; 80048; 85025; 87631; 87651; 96365; 96375; 99283; Q9967

== ENCOUNTER → 2024-12-07 | Outpatient (CLI) | payer OTHER, SELFPAY | END | disposition home or self-care (01) | LOC: LABSPEC 11:25 | PROVIDERS: PCP Family Medicine; Visit Provider Family Medicine | DX: R10.9 Unspecified abdominal pain (principal); J02.9 Acute pharyngitis, unspecified | CPT/HCPCS: 81002; 87070; 87077; 87086; 87186 ==

== ENCOUNTER → 2024-12-07 | Outpatient (CLI) | payer OTHER, SELFPAY ==
--- NOTE | 2024-12-07 12:42 | US_ITS ---
PROCEDURE: THYROID 12/07/2024 REASON FOR EXAM: NODULE Right thyroid nodule seen on prior CT scan. TECHNIQUE: Procedure Code: USTHY Modality: US Procedure: THYROID COMPARISON: Prior CT scan of the neck dated November 24, 2024. FINDINGS: Right thyroid lobe size: 5.3 cm x 1.8 cm 1.9 cm Left thyroid lobe size: 5.4 cm x 2 cm x 1.6 cm Isthmus: 0.3 cm Background parenchymal echotexture is homogeneous. Nodules: . Lobe: Right, Location: Superior pole, Size: 1 cm x 1 cm x 0.8 cm, Stability: N/A Composition: Mixed cystic and solid (+1) Echogenicity: Hypoechoic (+2) Margin: Smooth (+0) Shape: Wider than tall (+0) Echogenic Foci: None (+0) TI-RADS: 3 . Lobe: Right, Location: Superior pole, Size: 0.7 cm x 0.5 cm x 0.4 cm, Stability: N/A Composition: Solid or almost completely solid (+2) Echogenicity: Hypoechoic (+2) Margin: Smooth (+0) Shape: Wider than tall (+0) Echogenic Foci: None (+0) TI-RADS: 4 7 mm x 6 mm x 4 mm complex nodule in the left lobe of the thyroid adjacent to the isthmus. TI-RADS 3 US/Thyroid IMPRESSION: Bilateral thyroid nodules. Correlation with thyroid scan and uptake recommende d. RECOMMENDATION: Based on most suspicious nodule. Nodule size = largest diameter Only evaluate nodule if =>5 mm. Growth > 20% in 2 dimensions = worsening. Follow up to 4 nodules. Recommend biopsy for no more than 2 nodules. Reading Location: [id number]
== END | disposition home or self-care (01) ==
PROVIDERS: PCP Family Medicine; Referring Provider Family Medicine; Visit Provider Family Medicine
DX: E04.1 Nontoxic single thyroid nodule (principal)
CPT/HCPCS: 76536

== ENCOUNTER → 2024-12-08 | Outpatient (CLI) | payer OTHER, SELFPAY ==
[2024-12-08 13:57] LABS: Hematocrit 38.1 % (37-47); Hemoglobin 12.8 g/dL (12.0-15.0); Immature Granulocytes Count 0.020 X10^3/uL (0.0-0.0); Mean Corp Hgb Conc 33.6 g/dL (32-36); Mean Corpuscular Volume 84.5 fL (81-99); Mean Platelet Vol. 9.7 fl (6.2-12.0); NRBC Flagged by Analyzer 0 % (0-5); Platelet Count 268 K/mm3 (150-450); RBC Distribution Width CV 13.0 % (11.6-14.6); RBC Distribution Width SD 39.8 fl (35.1-43.9); Red Blood Count 4.51 M/mm3 (4.2-5.4); White Blood Count 7.4 K/mm3 (4.4-11.0)
[2024-12-08 14:27] LABS: AST(SGOT) 27 U/L (<=31); Alanine Aminotransfer ALT/SGPT 22 U/L (<=34); Albumin, Serum 4.2 g/dL (3.5-5.0); Alkaline Phosphatase 66 U/L (35-104); Anion Gap 12 (5-15); BUN 9 mg/dL (4-19); BUN/Creat Ratio 15.7 RATIO (10-20); Calcium,Total 9.3 mg/dL (7.6-11.0); Carbon Dioxide 20.3 mmol/L (21.0-32.0); Chloride 106 mmol/L (98-108); Ferritin 128 ng/mL (22-378); Globulin 3.5 g/dL (2.2-4.2); Glucose 101 mg/dL (70-99); Potassium 3.9 mmol/L (3.3-5.1); Vitamin D,25 Hydroxy 33.9 ng/mL (30-100)
[2024-12-08 14:30] LABS: Amylase 93 U/L (28-100); Iron 123 ug/dL (50-170); Lipase 45 U/L (13-75)
[2024-12-08 14:53] LABS: CRP 6.82 mg/L (0.0-3.0); Cholesterol 203 mg/dL (<=200); Low Density Lipoprotein Calc. 112 mg/dL; Triglycerides 244 mg/dL; Very Low Density Lipoprotein 49 mg/dL (5-40); cholesterol:hdl ratio screen 4.81
[2024-12-08 15:41] LABS: FOLATES,SERUM (FOLIC ACID) 31.20 ng/mL (4.60-34.80)
[2024-12-08 16:13] LABS: Vitamin B12 440 pg/mL (180-914)
[2024-12-08 18:13] LABS: Color, Urine Straw (Yellow); Glucose, Dipstick Normal (Normal); Ketone-Dipstick Negative (Negative); Leukocyte Esterase-Dipstick Negative /ul (Negative); Nitrite-Dipstick Negative (Negative); Occult Blood-Urine Negative /ul (Negative); Protein-Dipstick Negative (Negative); Specific Gravity, Urine 1.010 (1.002-1.030); Urine Bilirubin Dipstick Negative (Negative)
[2024-12-13 08:08] LABS: CRP, High Sensitivity 5.99 mg/L (0.00-3.00); Egg, White <0.10 kU/L (Class 0); SCALLOP <0.10 kU/L (Class 0); SESAME SEED <0.10 kU/L (Class 0); Walnut, (Food) <0.10 kU/L (Class 0)
[2024-12-16 10:08] LABS: Vitamin B1, Thiamine 99.0 nmol/L (66.5-200.0)
== END | disposition home or self-care (01) ==
PROVIDERS: PCP Family Medicine; Referring Provider Nurse Practitioner Family; Visit Provider Nurse Practitioner Family
DX: R00.2 Palpitations (principal); K50.90 Crohn's disease, unspecified, without complications; M32.9 Systemic lupus erythematosus, unspecified; A69.20 Lyme disease, unspecified; R07.89 Other chest pain; D68.69 Other thrombophilia; R06.00 Dyspnea, unspecified; R61 Generalized hyperhidrosis; R51.9 Headache, unspecified; R53.82 Chronic fatigue, unspecified; G89.29 Other chronic pain; R41.89 Other symptoms and signs involving cognitive functions and awareness; R10.9 Unspecified abdominal pain
CPT/HCPCS: 80053; 80061; 81002; 82150; 82306; 82607; 82728; 82746; 83540; 83690; 84425; 85025; 85652; 86003; 86140; 86141; 87086

== ENCOUNTER → 2025-01-04 | Outpatient (CLI) | payer OTHER, SELFPAY ==
--- NOTE | 2025-01-04 15:35 | US_ITS ---
PROCEDURE: PELVIC (NON ) 01/04/2025 REASON FOR EXAM: OVARIAN MASS 2 para 1. TECHNIQUE: Procedure Code: USPEL Modality: US Procedure: PELVIC (NON ). Transabdominal pelvic sonography was performed. The patient refused endovaginal pelvic sonography. COMPARISON: CT scan abdomen and pelvis dated 10/22/2024 FINDINGS: Measurements: Uterus: The patient had a hysterectomy in 2021. Right Ovary: 3.6 x 3.4 x 2.7 cm with a volume of 17 mL. There several follicles seen. Size contour and echogenicity of the ovary are within normal limits. There is blood flow within the ovary. Left Ovary: The patient had a left oophorectomy in 2014 Other: Urinary bladder measures 3.6 x 4.1 x 2.4 cm. Urinary bladder volume is 18.4 mL. Urinary bladder wall is not thick. Bladder wall appears smooth. There are no intraluminal masses seen. There is no free fluid in the cul-de-sac. US/Pelvic (Non ) IMPRESSION: Evidence of prior hysterectomy and left oophorectomy. Normal appearance to the right ovary. Reading Location: [id number]
== END | disposition home or self-care (01) ==
LOC: US 15:33
PROVIDERS: PCP Family Medicine
DX: C56.2 Malignant neoplasm of left ovary (principal)
CPT/HCPCS: 76856

== ENCOUNTER → 2025-01-17 | Outpatient (CLI) | payer OTHER, SELFPAY | END | disposition home or self-care (01) | LOC: LABSPEC 14:03 | PROVIDERS: PCP Family Medicine; Visit Provider Physician Assistant | DX: R82.90 Unspecified abnormal findings in urine (principal) | CPT/HCPCS: 87086; 87088 ==

== ENCOUNTER → 2025-01-18 | Outpatient (CLI) | payer OTHER, SELFPAY ==
[2025-01-19 13:11] LABS: CORTISOL AM 6.84 ug/dL (6.02-18.40); CPK Total, Creatine Kinase 68 U/L (24-195); Free T3 2.8 pg/mL (2.18-3.98); Magnesium 2.5 mg/dL (1.5-2.2)
[2025-01-23 15:08] LABS: Arsenic 7245 3 ug/L (0-9); Lead, Blood 1.2 ug/dL (0.0-3.4); Mercury, Blood 85324 < 1.0 ug/L (0.0-14.9); PROGESTERONE 0.2 ng/mL (.)
[2025-01-25 15:08] LABS: IgG, Quant 1518 mg/dL (586-1602); Immunoglobulin A 285 mg/dL (87-352); Immunoglobulin G, Subclass 1 795 mg/dL (248-810); Immunoglobulin G, Subclass 2 547 mg/dL (130-555); Immunoglobulin G, Subclass 3 28 mg/dL (15-102); Immunoglobulin G, Subclass 4 74 mg/dL (2-96); Immunoglobulin M 165 mg/dL (26-217); Zinc, Plasma or Serum 87 ug/dL (44-115)
== END | disposition home or self-care (01) ==
PROVIDERS: PCP Family Medicine; Referring Provider Nurse Practitioner Family; Visit Provider Nurse Practitioner Family
DX: R00.2 Palpitations (principal); K50.90 Crohn's disease, unspecified, without complications; M32.9 Systemic lupus erythematosus, unspecified; G90.A Postural orthostatic tachycardia syndrome [POTS]; A69.20 Lyme disease, unspecified; R11.0 Nausea; R07.89 Other chest pain; D68.69 Other thrombophilia; R06.00 Dyspnea, unspecified; R61 Generalized hyperhidrosis; R51.9 Headache, unspecified; R53.82 Chronic fatigue, unspecified; G89.29 Other chronic pain; R41.89 Other symptoms and signs involving cognitive functions and awareness; E28.9 Ovarian dysfunction, unspecified; R26.2 Difficulty in walking, not elsewhere classified; J02.0 Streptococcal pharyngitis
CPT/HCPCS: 82533; 82550; 82627; 82670; 82784; 82785; 82787; 83525; 83735; 84144; 84403; 84439; 84443; 84481; 84630; 86060; 86376; 86800; 82626

== ENCOUNTER → 2025-02-15 | Outpatient (CLI) | payer OTHER, SELFPAY ==
--- NOTE | 2025-02-15 10:04 | NM_ITS ---
PROCEDURE: THYROID UPTAKE SINGLE OR MULT 02/15/2025 REASON FOR EXAM: GOITER TECHNIQUE: Procedure Code: [id number] Modality: NM Procedure: THYROID UPTAKE SINGLE OR MULT Thyroid uptake calculated at approximately 4 and 24 hours after 300 microcuries I-131 orally as a capsule. COMPARISON: None. FINDINGS: Thyroid Uptake: 3.65 Hours: 11.8 % (normal range 5 to15%) 23.64 Hours: 23.64 % (normal range 10 to 35%) Thyroid Scan: Homogeneous and symmetric bilateral thyroid uptake is seen, without focal area of increased or decreased activity. NM/Thyroid Uptake Single or Mult IMPRESSION: Normal thyroid uptake values. Negative thyroid scan, without apparent abnormality. Reading Location: [place] [id number]
== END | disposition home or self-care (01) ==
PROVIDERS: PCP Family Medicine; Referring Provider Family Medicine; Visit Provider Family Medicine
DX: E04.2 Nontoxic multinodular goiter (principal)
CPT/HCPCS: 78012; A9516

== ENCOUNTER 2025-02-26 19:27 | Emergency (ER) | payer OTHER, SELFPAY ==
[2025-02-26 19:28] VITALS: BP 149/72; PULSE 81; RESP 18; TEMP 37.1; O2SAT 100; BMI 34.5
[2025-02-26 20:34] LABS: Hematocrit 39.4 % (37-47); Hemoglobin 12.7 g/dL (12.0-15.0); Immature Granulocytes Count 0.040 X10^3/uL (0.0-0.0); Mean Corp Hgb Conc 32.2 g/dL (32-36); Mean Corpuscular Volume 87.0 fL (81-99); Mean Platelet Vol. 9.1 fl (6.2-12.0); NRBC Flagged by Analyzer 0 % (0-5); Platelet Count 293 K/mm3 (150-450); RBC Distribution Width CV 12.8 % (11.6-14.6); RBC Distribution Width SD 40.1 fl (35.1-43.9); Red Blood Count 4.53 M/mm3 (4.2-5.4); White Blood Count 9.9 K/mm3 (4.4-11.0)
[2025-02-26 21:11] LABS: AST(SGOT) 25 U/L (<=31); Alanine Aminotransfer ALT/SGPT 24 U/L (<=34); Albumin, Serum 3.9 g/dL (3.5-5.0); Alkaline Phosphatase 68 U/L (35-104); Anion Gap 11 (5-15); BUN 10 mg/dL (4-19); BUN/Creat Ratio 12.1 RATIO (10-20); CRP 10.80 mg/L (0.0-3.0); Calcium,Total 9.5 mg/dL (7.6-11.0); Carbon Dioxide 26.6 mmol/L (21.0-32.0); Chloride 101 mmol/L (98-108); Estimated Creatinine Clearance 94.09 ml/min (50-250); Globulin 3.3 g/dL (2.2-4.2); Glucose 112 mg/dL (70-99); Potassium 3.7 mmol/L (3.3-5.1)
--- NOTE | 2025-02-26 22:00 | EDS_ITS ---
HPI History of Present Illness Chief Complaint: Lower Extremity Injury Detail of Chief Complaint: intermittent posterior thigh and leg pain, feels like muscle cramps Informant: patient Onset/Context/Timing Onset: Month(s) Context: Sudden Onset Timing: Intermittent Quality: muscle cramps Location: posterior legs bilaterally and posterior thighs bilaterally Current Severity: Gone Maximum Severity: Severe Worsened by: Possibly standing Relieved by: Resting Associated Symptoms Associated Symptoms: Patient states her left lower extremity was purple. Narrative Narrative: Patient is a 39-year-old woman. She has a history of Crohn's disease. She presents with intermittent posterior bilateral leg and thigh pain. This is intermittent for some time. She has no lesions on the anterior leg. She reports that she had a blood clot related to a ruptured plantaris muscle many years ago. She developed a DVT 2 weeks after she ruptured the tendon/muscle. Patient was switched from [facility] to [place]. She presently denies paresthesia, anesthesia or motor weakness. She denies bowel bladder dysfunction. She denies saddle paresthesia or anesthesia. She denies foot drop. She states, going up and down steps recently. Unable to assess whether she has buckling of her knees going up or down steps. Prior similar symptoms: Yes Recent Illness/Hospitalization: No PFSH PFS Medical History Kidney stones Lupus Rheumatoid arthritis Interstitial cystitis History of DVT (deep vein thrombosis) Injury of head and neck History of diverticulitis History of Crohn's disease Shortness of breath on exertion History of edema History of stress test History of echocardiogram Cardiology follow-up encounter History of atrial fibrillation Ovarian cancer Left leg paresthesias Lumbar strain Kidney stones Medullary sponge kidney of both kidneys Kidney disease Acute maxillary sinusitis, unspecified Abdominal pain Diarrhea History of Lyme disease Reflux involving intestinal tract POTS (postural orthostatic tachycardia syndrome) Wears glasses Anemia History of steroid therapy History of fatty infiltration of liver Non-smoker Leg cramps Edema Irregular heart beat Migraine headache Restless legs Back pain Syncope Ectopic cardiac beats Sinus tachycardia Symptomatic bradycardia lysis of adensions (~09/2019) Hepatic steatosis Acid reflux Asthma Sleep apnea Anxiety Hypertension Arthritis History of back problems h/o lesion removal Fatigue Endometriosis Ovarian cyst Hematochezia PCOS (polycystic ovarian syndrome) Ankylosing spondylitis Exercise-induced asthma Mitral regurgitation Tachycardia Prolapse of intestine Diverticulosis Hemorrhoids Anal fissure Home Medications ?Medication ?Instructions ?Recorded ?Last Taken ?Type multivitamin 1 tab PO DAILY 12/13/17/2 05/17 History albuterol sulfate 90 mcg/actuation 1 - 2 puff inhalati on Q6H PRN PRN 10/19/19 Unknown History aerosol inhaler Asthma atenolol 25 mg tablet 25 mg PO DAILY #90 tabs 10/20 Unknown Rx Hydrocortisone 2.5% / Lidocaine 5% #30 grams 07/03/24 Unknown Rx ointment (cmpd) ipratropium 0.5 mg-albuterol 3 mg 3 ml inhalation Q6H PRN shortness 07/19/24 Unknown Rx (2.5 mg base)/3 mL nebulization of breath or wheezing #180 mL soln potassium citrate 10 mEq (1,080 10 meq PO BID 07/19/24 Unknown History mg) tablet,extended release pantoprazole 40 mg tablet,delayed 40 mg PO BID #60 tab s 10/24/24 Unknown Rx release budesonide 3 mg 9 mg (3 x 3 mg) PO QDAY 30 d ays 02/09/25 Unknown Rx capsule,delayed,extended release #90 ea hydrocortisone 2.5 % topical cream 1 applic topical TI D #28.35 grams 02/09/25 Unknown Rx risankizumab-rzaa 60 mg/mL 600 mg .Route 02/09/25 Unkn own History intravenous solution (Jonnathanyrkody) hydrocortisone acetate 25 mg 25 mg AK BID 21 days #42 ea 02/19/25 Unknown Rx rectal suppository ondansetron 4 mg disintegrating 4 mg PO Q8H PRN nausea and 02/19/25 Unknown Rx tablet vomiting #90 tabs Allergy/AdvReac Type Severity Reaction Status Date / Time cephalexin monohydrate (From Allergy Severe Anaphylaxis Verified 02/26/25 20:26 Keflex) cyclobenzaprine (From Allergy Severe Mental Verified 02/26/25 20:26 Flexeril) status change latex Allergy Mild Swelling Verified 02/26/25 20:26 eucalyptus AdvReac Severe tachycardia, Verified 02/26/25 20:26 close airway NSAIDS (Non-Steroidal AdvReac Severe GI upset Verified 02/26/25 20:26 Anti-Inflamma tamsulosin (From Flomax) AdvReac Severe Low BP/HR Verified 02/26/25 20:26 tizanidine AdvReac Severe Low HR Verified 02/26/25 20:26 ciprofloxacin (From Cipro) AdvReac diarrhea, Verified 02/26/25 20:26 nausea, tachycardia Family History Mother Heart disease Hypertension Father Heart disease Diabetes Hypertension Surgical History History of surgery History of hysterectomy History of cholecystectomy H/O cystoscopy (~09/2019) H/O dilation and curettage (~09/2019) Hx laparoscopic cholecystectomy (~09/2019) Hx of removal of ovary History of hernia repair History of Social History housing: house Smoking Status: Never smoker Electronic Cigarette Use: not used second hand exposure: No alcohol intake: never substance use type: does not use caffeine: No what type of physical activity do you participate in: walking frequency: 5-6 times per week seatbelt use: always do you feel safe at home: Yes additional social history: Single- Currently unemployed ROS ROS ED Constitutional Constitutional ED: Denies chills, fever(s), subjective, sweats or weight loss Eyes Eyes: Denies blurry vision, change in vision or diplopia Cardiovascular Cardiovascular: Denies chest pain or palpitations Respiratory/Chest Respiratory/Chest: Denies cough, dyspnea or dyspnea on exertion Gastrointestinal Gastrointestinal: Denies abdominal pain, diarrhea, nausea or vomiting Musculoskeletal Musculoskeletal: Reports myalgias; Denies arthralgias, back pain or neck pain Integumentary Denies rash Neurologic Neurologic: Reports weakness; Denies paresthesias Endocrine Endocrinology: Denies cold intolerance or heat intolerance Hematologic/Lymphatic Hematologic/Lymphatic: Reports systems reviewed and no addt'l complaints, except as documented EXAM Physical Exam Const Vital Signs: 02/26/25 19:28 02/26/25 20:24 Temperature 98.8 F Temperature Source Oral Pulse Rate 81 Respiratory Rate 18 Respiratory Effort Normal Non-Labored Respiratory Pattern Normal Blood Pressure 149/72 H Blood Pressure Mean 97 Pulse Ox 100 Oxygen Delivery Method Room Air Positive well nourished and well developed Constitutional Narrative: Patient appears in no distress. BMI is 34.8. General Appearance ED: well developed; Negative for pallor HEENT HEENT Narrative: HEENT is grossly unremarkable. Sclera is anicteric. Eyes PERRL and EOMs intact bilaterally General Eye ED: Negative for scleral icterus Resp normal respiratory effort Cardio regular rate and regular rhythm Extremity normal to inspection Extremity Narrative: Patient states she is unable to plantar or dorsiflex her foot. Because of her neuro symptoms patient was asked to stand up. She was able to stand up. Her gait was observed. She had no foot drop. She was able to walk on heels and toes. EHLs intact. She reports altered sensation S3-L1 dermatome on the left only. Patella and ankle reflex are 2-3+ and symmetric. She has no clonus at the ankles. She has no Babinski sign either side. DP and PT pulse are 2+ and symmetric. Rod Da[place] 4 test is negative bilaterally. There are no lesions anteriorly to suggest erythema nodosum. There is no tenderness along the distribution deep venous system nor is any palpable cords. There is no asymmetry or discoloration of the right or left leg. There is no swelling of either leg. Neuro oriented x3, CN's II-XII intact bilaterally and No no sensory deficits noted Neuro Narrative: Documented under the extremity portion of the medical record Sensorium / Orientation: alert Motor Exam: strength 5/5 throughout Psych Psych Narrative: Affect is flat. Skin no rashes or lesions noted, no wounds and skin turgor normal General Skin Exam: elasticity normal; Negative for jaundice or pallor MDM MDM MDM Narrative Medical decision making narrative: Patient's history physical and exam has inconsistencies and uncertain cause. In my opinion she has no neurovasc compromise. Lab Data Attestation: I reviewed the patient's lab results. Lab results narrative: CBC is normal. Comprehensive metabolic panel is unremarkable. Glucose is elevated 112. CO2 and anion gap is normal. ESR is normal at 2. C-reactive protein is elevated at 10.8. Labs: Laboratory Results - last 24 hr 02/26/25 02/26/25 20:21 22:18 WBC 9.9 RBC 4.53 Hgb 12.7 Hct 39.4 MCV 87.0 MCH 28.0 MCHC 32.2 RDW Std Deviation 40.1 RDW Coeff of Karon 12.8 Plt Count 293 MPV 9.1 Immature Gran % (Auto) 0.400 Neut % (Auto) 60.3 Lymph % (Auto) 31.4 [place] % (Auto) 6.1 Eos % (Auto) 1.5 Baso % (Auto) 0.3 Absolute Neuts (auto) 6.0 Absolute Lymphs (auto) 3.12 Nucleated RBC % 0 ESR 2 Sodium 139 Potassium 3.7 Chloride 101 Carbon Dioxide 26.6 Anion Gap 11 BUN 10 Creatinine 0.83 Estim Creat Clear Calc 94.09 Est GFR (MDRD) Non-Af 91 BUN/Creatinine Ratio 12.1 Glucose 112 H Calcium 9.5 Total Bilirubin 0.18 AST 25 ALT 24 Alkaline Phosphatase 68 C-React Prot Ext Range 10.80 H Total Protein 7.2 Albumin 3.9 Globulin 3.3 Albumin/Globulin Ratio 1.2 Urine Color Yellow Urine Clarity Sl. Cloudy Urine pH 8.0 Ur Specific [place] 1.015 Urine Protein 15 H Urine Glucose (UA) Normal Urine Ketones Negative Urine Occult Blood 10 H Urine Nitrite Negative Urine Bilirubin Negative Urine Urobilinogen Normal Ur Leukocyte Esterase Negative Urine RBC 0 SEEN Urine WBC 0 SEEN Ur Squamous Epith Cells 0 SEEN Amorphous Sediment 1+ PHOS Urine Bacteria 0 SEEN Urine Mucus 0 SEEN Urinalysis macro is positive for protein and occult blood. Micro reveals 0 WBCs, 0 RBCs, 0 bacteria and 0 epithelial cells. Treatment and Re-Evaluation :: Patient was informed the cause of her symptoms is uncertain. Since there is no acute emergency recommend following up with her doctor. At this point I feel comfortable discharging her to home. Since she was pain-free when I examined her she was not treated with any pain medicine. Comments:: Patient demanded that her urine be checked. I informed her that I will gladly order a UA. She is complaining nausea and verbal or was given for Zofran. She was informed the cause of her pain is unknown. At this point I do not believe anything else needs to be done. From an emergency medicine standpoint life-threatening things have been ruled out i.e. cauda equina, epidural hematoma spontaneous, epidural abscess is not consistent with her history and physical, herniated disc is not consistent with her history and physical as well. There is no indication for emergent MRI. She was instructed she follow-up with her doctor and possible manager pediatric to determine why she is having intermittent posterior bilateral lower extremity pain. The nurse was in the room when I informed the patient of this. Discharge Plan Triage Chief Complaint: Lower Extremity Injury Other Complaint: General Illness ED Provider: Israel Madrid Dx/Rx/DC Orders Clinical Impression: Lower extremity pain, posterior, Hx of Crohn's disease Instructions: ED Pain, Acute, Uncertain Cause Prescriptions: No Action multivitamin tablet 1 tab PO DAILY atenolol 25 mg tablet 25 mg PO DAILY Qty: 90 3RF Rx Instructions: Takes BID if BP or HR are elevated Skyrizi 60 mg/mL solution 600 mg .Route Rx Instructions: infuse at week 0, 4, 8 budesonide 3 mg capsule,delayed,extend.release 9 mg PO QDAY 30 Days Qty: 90 2RF hydrocortisone 2.5 % cream 1 applic topical TID Qty: 28.35 3RF albuterol sulfate 1 INHALER inhaler 1 - 2 puff INHALATION Q6H PRN PRN (Reason: Asthma) potassium citrate 10 mEq (1,080 mg) tablet extended release 10 meq PO BID ipratropium-albuterol 0.5 mg-3 mg(2.5 mg base)/3 mL solution for nebulization 3 ml inhalation Q6H PRN (Reason: shortness of breath or wheezing) Qty: 180 0RF (DME) Hydrocortisone 2.5% / Lidocaine 5% ointment (cmpd) Ointment See Rx Instructions .Route Qty: 30 0RF Rx Instructions: instill a pea sized amount into the rectum BID PRN for rectal pain pantoprazole 40 mg tablet,delayed release (DR/EC) 40 mg PO BID Qty: 60 2RF ondansetron 4 mg tablet,disintegrating 4 mg PO Q8H PRN (Reason: nausea and vomiting) Qty: 90 1RF hydrocortisone acetate 25 mg suppository 25 mg AK BID 21 Days Qty: 42 0RF Primary Care Provider: Anant Curran Referrals: Anant Curran DO [Primary Care Provider, Family Practice] - 3-5 Days Activity Restrictions/Additional Instructions: Checked in your primary care physician Dr. Anant Curran. You may benefit from a rheumatology referral. Print Language: Peruvian Disposition Disposition: Home, Self Care
[2025-02-26 22:28] LABS: Mucous, Urine 0 SEEN /hpf (<or=2+); Red Blood Cells-Urine 0 SEEN /hpf (0-5); Squamous Epithelial Cells - UA 0 SEEN /hpf (5-10)
[2025-02-26 22:35] LABS: Color, Urine Yellow (Yellow); Glucose, Dipstick Normal (Normal); Ketone-Dipstick Negative (Negative); Leukocyte Esterase-Dipstick Negative /ul (Negative); Nitrite-Dipstick Negative (Negative); Occult Blood-Urine 10 /ul (Negative); Protein-Dipstick 15 mg/dl (Negative); Specific Gravity, Urine 1.015 (1.002-1.030); Urine Bilirubin Dipstick Negative (Negative)
--- NOTE | 2025-02-26 23:13 | ED.RN ---
pt calls out for a nurse- this rn enters room and asks what pt needs- pt states nothing i just havent seen a nurse in a while. this rn tells pt that this rn has been very busy d/t very criticial er. pt states well i want my urine checked, a bag of fluids and zofran. this rn states that if blood work that was done is not showing signs of dehydration then a the drAlessandra most likely will not order a bag of fluids. pt states well jerson seen no one and did all he do is bloodwork? my legs still hurt. this rn tells pt that all dr. rizvi ordered was bloodwork bc he is checking for inflammorty markers d/t the list of symptoms the pt provided. pt states okay well i want my urine checked. this rn leaves room and notifies dr of pt demands. dr. rizvi goes and speaks with pt and talks about resulted this rn in room. dr. rizvi tells pt that all the bad things are not present and pts blood work looks good from an emergency stand point. pt says okay and dr. rizvi leaves room. this rn asks pt if she needs anything. pt denies.
--- NOTE | 2025-02-26 23:18 | ED.RN ---
this rn goes into room to discharge pt. this rn states that pts urine looks good and no infection. pt then states yeah no i have blood in my urine, protein and crystals. so i probably have a kidney stone and no one did a cat scan this rn asks pt if she is having flank pain. pt states yeah i have been having flank pain. this rn asks pt if she notified dr. rizvi of said flank pain. pt states well my legs hurt when i came in so i was focused on my legs not my flank pain, i know what it feels like to have a kidney stone. this rn states before i take out your iv would you like a cat scan pt states god no. this rn takes pts iv out. pt then states oh thanks for the zofran by the way. i really appreciated that this rn aplogizes and asks pt if she would like an oral dose of zofran before leaving. pt states no i have some in my purse. i just wanted you to know you forgot this rn states well thanks for that. i know it is hard to sit and be okay with the idea of if youre not being bothered in the er it is because you are not critically ill, and sometimes thats something to be thakful for. if you dont have any other concerns or demands you are all good to go. be careful going home the roads are bad tonight pt did not state anything back. the rn leaves room.
[2025-02-26 23:25] VITALS: BP 117/70; PULSE 81; RESP 18; TEMP 37.1; O2SAT 100
== END 2025-02-26 23:26 | disposition home or self-care (01) ==
PROVIDERS: Emergency Provider Emergency Medicine; PCP Family Medicine; Visit Provider Emergency Medicine
DX: M79.604 Pain in right leg (principal); K50.90 Crohn's disease, unspecified, without complications; Z86.718 Personal history of other venous thrombosis and embolism; I10 Essential (primary) hypertension; K21.9 Gastro-esophageal reflux disease without esophagitis; J45.909 Unspecified asthma, uncomplicated; M79.605 Pain in left leg
CPT/HCPCS: 80053; 81001; 85025; 85652; 86140; 99283

== ENCOUNTER → 2025-03-07 | Outpatient (CLI) | payer OTHER, SELFPAY ==
--- NOTE | 2025-03-07 12:47 | RAD_ITS ---
PROCEDURE: HIP, UNI W/ PELVIS 2-3 VIEWS 03/07/2025 REASON FOR EXAM: PAIN TECHNIQUE: Procedure Code: [facility] Modality: DX Procedure: HIP, UNI W/ PELVIS 2-3 VIEWS Laterality: Left COMPARISON: None FINDINGS: The bony pelvis is intact. The SI joints are normal. There is no significant degenerative disc disease, L3-4 through L5-S1. There are no soft tissue abnormalities. AP view of the right hip demonstrates no evidence of fracture or dislocation. There is no significant joint space abnormality. AP and lateral views of the left hip demonstrate no evidence of fracture or dislocation. There is no significant joint space abnormality. The periarticular soft tissues are normal. RAD/HIP, UNI W/ Pelvis 2-3 Views IMPRESSION: Normal-appearing left hip. Other findings as noted. Reading Location: [place] [id number]
--- NOTE | 2025-03-07 12:47 | RAD_ITS ---
PROCEDURE: KNEE 4 OR MORE VIEWS 03/07/2025 REASON FOR EXAM: PAIN TECHNIQUE: Procedure Code: RADKN Modality: DX Procedure: KNEE 4 OR MORE VIEWS Laterality: Left COMPARISON: None FINDINGS: Images of the right knee demonstrate no evidence of fracture or dislocation. There is no significant arthritis of the patellofemoral joint. 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 There is no significant arthritis of the medial joint space compartment of the knee. There is no significant arthritis of the lateral joint space compartment of the knee. There is no knee joint effusion. The periarticular soft tissues are normal. RAD/Knee 4 or More Views IMPRESSION: No significant arthropathy. Lateral displacement of the patella. Reading Location: [place] [id number]
== END | disposition home or self-care (01) ==
LOC: MTRAD 12:46
PROVIDERS: PCP Family Medicine; Referring Provider Family Medicine; Visit Provider Family Medicine
DX: M25.562 Pain in left knee (principal); M25.552 Pain in left hip
CPT/HCPCS: 73502; 73564

== ENCOUNTER → 2025-03-16 | Outpatient (CLI) | payer OTHER, SELFPAY ==
--- NOTE | 2025-03-16 14:11 | MRI_ITS ---
PROCEDURE: SPINE LUMBAR (ROUTINE) 03/16/2025 REASON FOR EXAM: Lumbar radiculopathy TECHNIQUE: Procedure Code: MRISPL Modality: MR Procedure: SPINE LUMBAR (ROUTINE) COMPARISON: None available. FINDINGS: For the purposes of this report, the most caudal rectangular vertebral body will be designated L5. The next most caudal trapezoidal shaped vertebral body will be designated S1. The intervening disc at the lumbosacral angle is designated L5-S1. The normal lumbar lordosis is maintained. The lumbar vertebral bodies are normal in height. The lumbar vertebral bodies are normal in alignment. The lumbar bone marrow signal is within normal limits. There is no evidence of signal abnormality in the imaged distal spinal cord. The conus medullaris terminates at the level of L1. T12-L1: No significant spinal canal stenosis or neural foraminal narrowing. L1-L2: No significant spinal canal stenosis or neural foraminal narrowing. L2-L3: No significant spinal canal stenosis or neural foraminal narrowing. L3-L4: Disc bulge flattens the ventral thecal sac. No significant neural foraminal narrowing. L4-L5: Disc bulge flattens the ventral thecal sac. No significant neural foraminal narrowing. L5-S1: No significant spinal canal stenosis or neural foraminal narrowing. The posterior paraspinal muscles are unremarkable. MRI/Spine Lumbar (Routine) IMPRESSION: No high-grade spinal canal or neural foraminal stenosis in the lumbar spine. Reading Location: [id number]
== END | disposition home or self-care (01) ==
LOC: MRI 14:09
PROVIDERS: PCP Family Medicine; Referring Provider Family Medicine; Visit Provider Family Medicine
DX: M79.604 Pain in right leg (principal); M79.605 Pain in left leg; R20.2 Paresthesia of skin; R20.0 Anesthesia of skin
CPT/HCPCS: 72148